=== PATIENT | male | born 1940 | race Caucasian/White ===

== ENCOUNTER 2023-05-03 08:02 | Outpatient (OUT) | payer MEDICARE, SELFPAY ==
--- NOTE | 2023-05-03 08:41 | CA_ITS ---
Patient: YONG AUSTIN Exam Date: 05/03/2023 : 1940 Gender:M Ordering : JOSESITO CONTRERAS Admission #: [id number] Family : DR Sergio Anderson . Order #: [id number] CLICK HERE TO VIEW EXAM ECHOCARDIOGRAM REPORT PROCEDURE: CA ECHO DOPPLER COMPLETE INDICATIONS: Acute on chronic systolic heart failure, pacemaker, hypertension COMPARISON: None. DESCRIPTION: COMPLETE ECHOCARDIOGRAM Real-time transthoracic echocardiography with 2D, M-mode, spectral and color flow Doppler performed. QUALITY: Technical quality was good. LEFT VENTRICLE: Normal chamber size. Severe concentric left ventricular hypertrophy. Abnormal septal motion likely related to pacing and/or bundle branch block. Systolic function appears at the lower limits of normal. LV EF: Low normal left ventricular ejection fraction, (50%). DIASTOLIC: Grade I diastolic dysfunction. ATRIAL SEPTUM: LEFT ATRIUM: Moderate dilatation. RIGHT ATRIUM: Normal chamber size. RIGHT VENTRICLE: Normal chamber size. Normal systolic function. Pacer wire present. TRICUSPID VALVE: Normal mobility and thickness. No stenosis with mild regurgitation. No evidence of pulmonary hypertension. RVSP 26 mmHg MITRAL VALVE: Normal mobility and thickness. No evidence of mitral valve stenosis. There is no mitral annular calcification. Mild mitral regurgitation. AORTIC VALVE: Normal trileaflet appearance. No visible sclerosis. Normal leaflet mobility. No evidence of aortic valve stenosis. Trivial aortic regurgitation. AORTIC ROOT: Normal diameter and appearance. PULMONIC VALVE: Normal thickness and mobility. No stenosis. Trivial regurgitation. PERICARDIUM: No evidence of pericardial effusion. IVC: Collapses with inspirations. PLEURA: CONCLUSION: 1. Severe concentric left ventricular hypertrophy. Low normal left ventricular systolic function. LVEF is 50%. 2. Mild diastolic dysfunction. 3. Normal right ventricular size and systolic function. 4. Mild tricuspid and mitral regurgitation. 5. Normal right-sided pressures. Adult Echocardiography Procedure Report Left Ventricle LVEDD (3.7 - 5.6 cm): 5.27 cm LVESD (2.2 - 4.0 cm): 4.03 cm LVIVS thickness (0.6 - 1.2 cm): 1.88 cm LVPW thickness (0.5 - 1.0 cm): 1.60 cm e': 0.05 m/s E - e': 9.95 LVOT Max Gradient: 2.83 mm[Hg] LVOT Area (cm2): 0.84 m/s Peak Velocity (LVOT): 0.84 m/s Mean Velocity (LVOT): 0.59 m/s LVOT Diameter 2.41 cm Left Atrium LA Volume Index (2D A2C): 60.19 ml/m2 Left Atrium Systolic Dimension: 4.82 cm Mitral Valve MV E to A Ratio: 0.72 Mitral Valve A-Wave Peak Velocity: 0.72 m/s Mitral Valve E-Wave Peak Velocity: 0.52 m/s Right Ventricle Aorta AO Root Diam: 3.69 cm Ascending Ao Diam: 2.79 cm Aortic Valve AoV Area (Peak Ken): 2.80 cm2, 2.80 cm2 AoV Area (VTI): 2.74 cm2, 2.74 cm2 Peak Velocity(Antegrade Flow): 1.37 m/s Peak Gradient(Antegrade Flow): 7.49 mm[Hg] Mean Velocity(Antegrade Flow): 0.95 m/s Mean Gradient(Antegrade Flow): 4.20 mm[Hg] Velocity Time Integral: 29.04 cm Tricuspid Valve Peak Velocity (Regurgitant Flow): 2.37 m/s Pulmonic Valve Peak Velocity: 1.34 m/s Peak Gradient: 7.12 mm[Hg], 7.24 mm[Hg] Right Atrium Dictated by: Keven Castaneda M.D. on 05/08/2023 at 16:56 Approved by: Keven Castaneda M.D. on 05/08/2023 at 17:24
== END 2023-05-03 08:03 | disposition home or self-care (01) ==
LOC: CARD 08:07
PROVIDERS: PCP Family Medicine; Visit Provider Nurse Practitioner
DX: I50.23 Acute on chronic systolic (congestive) heart failure (principal); I08.1 Rheumatic disorders of both mitral and tricuspid valves
CPT/HCPCS: 93306

== ENCOUNTER 2023-07-16 08:46 | Outpatient (OUT) | payer MEDICARE, SELFPAY ==
[2023-07-16 13:26] LABS: Thyroid Stimulating Hormone 1.953 uIU/mL (0.358-3.740)
== END 2023-07-16 08:47 | disposition home or self-care (01) ==
LOC: LAB 08:50
PROVIDERS: PCP Family Medicine; Visit Provider Family Medicine
DX: E03.9 Hypothyroidism, unspecified (principal)
CPT/HCPCS: 36415; 84436; 84443; 84481

== ENCOUNTER 2023-08-15 13:40 | Outpatient (OUT) | payer MEDICARE, SELFPAY ==
[2023-08-15 13:56] LABS: Basophils Absolute Auto 0.1 10^3/uL (0.0-0.1); Basophils Percent Auto 0.7 % (0.2-2.0); Eosinophils Absolute Auto 0.3 10^3/uL (0.0-0.7); Eosinophils Percent Auto 3.2 % (0.9-7.0); Hematocrit 41.8 % (42.0-54.0); Hemoglobin 14.4 g/dL (14.0-18.0); Immature Granulocytes Abs Auto 0.04 10^3/uL (0.00-0.03); Immature Granulocytes Pct Auto 0.5 % (0.0-0.5); Lymphocytes Absolute Auto 0.7 10^3/uL (1.2-3.8); Lymphocytes Percent Auto 7.8 % (20.5-60.0); Mean Corpuscular HGB Conc 34.4 g/dL (29.9-35.2); Mean Corpuscular Hemoglobin 29.3 pg (25.9-34.0); Mean Platelet Volume 8.9 fL (9.5-13.5); Monocytes Absolute Auto 0.6 10^3/uL (0.3-0.8); Monocytes Percent Auto 7.1 % (1.7-12.0); Neutrophils Absolute Auto 6.9 10^3/uL (1.4-6.5); Neutrophils Percent Auto 80.7 % (43.0-75.0); Platelet Count 247 10^3/uL (150-450); Red Blood Count 4.92 10^6/uL (4.70-6.10); Red Cell Distribution Width 13.7 % (11.0-15.0); White Blood Count 8.5 10^3/uL (4.0-11.0)
[2023-08-15 14:14] LABS: Alanine Aminotransferase 26 U/L (16-63); Albumin Globulin Ratio 1.2; Albumin Level 3.4 g/dL (3.4-5.0); Alkaline Phosphatase 78 U/L (46-116); Anion Gap 13.1; Aspartate Amino Transferase 23 U/L (15-37); BUN Creatinine Ratio 9.1; Bilirubin Total 0.6 mg/dL (0.2-1.0); Calcium 8.6 mg/dL (8.5-10.1); Chloride 102 mmol/L (98-107); Estimated GFR (African America 42 (>=60); Estimated GFR (Non-African Ame 35 (>=60); Globulin 2.9 g/dL; Glucose 108 mg/dL (74-106); INR 1.01; Potassium 4.1 mmol/L (3.5-5.1); Prothrombin Time 10.7 sec (9.0-11.6); Sodium 137 mmol/L (136-145); Total Protein 6.3 g/dL (6.4-8.2)
== END 2023-08-15 13:41 | disposition home or self-care (01) ==
PROVIDERS: PCP Family Medicine; Visit Provider Family Medicine
DX: K29.70 Gastritis, unspecified, without bleeding (principal)
CPT/HCPCS: 36415; 80053; 85025; 85610; 85730

== ENCOUNTER 2023-11-05 10:32 | Observation (INO) | payer MEDICARE, SELFPAY ==
[2023-11-05] VITALS (22 sets, daily range): BP systolic 105–129; BP diastolic 41–53; PULSE 62–71; RESP 14–27; TEMP 36.5–36.8; O2SAT 91–97; BMI 24.9; BMI 26.6
--- OUTSIDE RECORDS SUMMARY | 2023-11-05 10:46 | XMS_ITS | CCD ---
Author Name Unknown Address [id number] [place] [address] Organization [facility] Care Team Providers Care [facility] Associate Name Role Phone PHYSICIAN, DEFAULT Unavailable Unavailable PHYSICIAN, DEFAULT Unavailable Unavailable PHYSICIAN, DEFAULT Unavailable Unavailable PHYSICIAN, DEFAULT Unavailable Unavailable Yoan Sneed MD Primary Care Provider [phone] Jian Rodriguez MD Unavailable Unavailable Mike BARBER, Lauren Barros Unavailable Soren Perea MD Unavailable Corazon Maxwell PA-C Unavailable Augusto Sauceda Unavailable Shawn Nelson Unavailable Yoan Sneed MD Primary Care Provider [phone] Jian Rodriguez MD Unavailable Unavailable Soren Perea MD Unavailable [phone] Casey Castaneda MD Unavailable Yoan Sneed Primary Care Physician [phone] Yoan Sneed MD Primary Care Provider [phone] Caesar Prado MD Unavailable Saray BARBER, Margot Unavailable [phone] Wayne Chavez APRN.CNP Unavailable PAY ., DR SEVILLA Consulting Unavailable PAY ., DR SEVILLA Admitting Unavailable NAREN ., DR MILTON Primary Care Unavailable PAY ., DR SEVILLA Attending Unavailable MIKE MARTÍNEZ Consulting Unavailable NAREN ., DR MILTON Primary Care Unavailable BYRON KIRK Attending Unavailable BYRON KIRK Consulting Unavailable BYRON KIRK Admitting Unavailable AUGUSTINA JAMES Consulting Unavailable HOY ., DR MILTON Primary Care Unavailable PAY ., DR SEVILLA Consulting Unavailable PAY ., DR SEVILLA Admitting Unavailable PAY ., DR SEVILLA Attending Unavailable HOY ., DR MILTON Primary Care Unavailable HOY ., DR MILTON Admitting Unavailable HOY ., DR MILTON Attending Unavailable HOY ., DR MILTON Consulting Unavailable HOY ., DR MILTON Admitting Unavailable HOY ., DR MILTON Attending Unavailable HOY ., DR MILTON Consulting Unavailable HOY ., DR MILTON Primary Care Unavailable Jennifer FOUNTAIN, Jian Lee Unavailable Jian RODRIGUEZ Attending Unavailable Jian RODRIGUEZ Attending Unavailable Saray BARBER, Margot Unavailable JIMBO BAUTISTA Attending Unavailable DAGOBERTO JAMES Attending Unavailable ELMO, NASHEED Referring Unavailable AHMED, MIGUEL Referring Unavailable AHMED, MIGUEL Referring Unavailable AHMED, MIGUEL Referring Unavailable MERZA, NOORALDIN Referring Unavailable JACKZA, NOORALDIN Referring Unavailable JOSESITO VILLANUEVA Referring Unavailable ELMO, ALFONZOEED Attending Unavailable PATRICIA WHITING Referring Unavailable AHMED, MIGUEL Attending Unavailable AHMED, MIGUEL Admitting Unavailable JONATHAN LEIGH Attending Unavailable CASEY CASTANEDA Attending Unavailable JOSESITO VILLANUEVA Attending Unavailable JIMBO BAUTISTA Referring Unavailable HOY, YOAN M Primary Care Unavailable ABHYANKAR, CAESAR Referring Unavailable HOY, YOAN M Primary Care Unavailable RITA BHATT Attending Unavailable HOY, YOAN M Primary Care Unavailable ABHYANKAR, CAESAR Attending Unavailable HOY, YOAN M Primary Care Unavailable ABHYANKAR, CAESAR Referring Unavailable HOY, YOAN M Primary Care Unavailable HOY, YOAN M Primary Care Unavailable WAYNE CHAVEZ Referring Unavailable WAYNE CHAVEZ Attending Unavailable HOY, YOAN M Primary Care Unavailable HOY, YOAN M Primary Care Unavailable ABHYANKAR, CAESAR Attending Unavailable HOY, YOAN M Primary Care Unavailable HOY, YOAN M Primary Care Unavailable ABHYANKAR, CAESAR Attending Unavailable HOY, YOAN M Primary Care Unavailable ABHYANKAR, CAESAR Attending Unavailable HOY, YOAN M Primary Care Unavailable HOY, YOAN M Primary Care Unavailable WAYNE CHAVEZ Attending Unavailable HOY, YOAN M Primary Care Unavailable WAYNE CHAVEZ Referring Unavailable HOY, YOAN M Primary Care Unavailable ABHYANKAR, CAESAR Referring Unavailable HOY, YOAN M Primary Care Unavailable HOY, YOAN M Primary Care Unavailable HOY, YOAN M Primary Care Unavailable ABHYANKAR, CAESAR Referring Unavailable HOY, YOAN M Primary Care Unavailable HOY, YOAN M Primary Care Unavailable WAYNE CHAVEZ Attending Unavailable HOY, YOAN M Primary Care Unavailable ABHYANKAR, CAESAR Attending Unavailable ABHYANKAR, CAESAR Referring Unavailable HOY, YOAN M Primary Care Unavailable ABHYANKAR, CAESAR Attending Unavailable HOY, YOAN M Primary Care Unavailable HOY, YOAN M Primary Care Unavailable HOY, YOAN M Primary Care Unavailable ABHYANKAR, CAESAR Attending Unavailable ABHYANKAR, CAESAR Referring Unavailable HOY, YOAN M Primary Care Unavailable ABHYANKAR, CAESAR Referring Unavailable HOY, YOAN M Primary Care Unavailable HOY, YOAN M Primary Care Unavailable HOY, YOAN M Primary Care Unavailable ABHYANKAR, CAESAR Referring Unavailable HOY, YOAN M Primary Care Unavailable HOY, YOAN M Primary Care Unavailable HOY, YOAN M Primary Care Unavailable WAYNE CHAVEZ Attending Unavailable HOY, YOAN M Primary Care Unavailable ABHYANKAR, CAESAR Referring Unavailable HOY, YOAN M Primary Care Unavailable RITA BHATT Attending Unavailable RITA BHATT Admitting Unavailable HOY, YOAN M Primary Care Unavailable ABHYANKAR, CAESAR Attending Unavailable HOY, YOAN M Primary Care Unavailable HOY, YOAN M Primary Care Unavailable WAYNE CHAVEZ Attending Unavailable HOY, YOAN M Primary Care Unavailable ABHYANKAR, CAESAR Referring Unavailable HOY, YOAN M Primary Care Unavailable RITA BHATT Attending Unavailable HOY, YOAN M Primary Care Unavailable HOY, YOAN M Primary Care Unavailable ABHYANKAR, CAESAR Attending Unavailable HOY, YOAN M Primary Care Unavailable ABHYANKAR, CAESAR Referring Unavailable HOY, YOAN M Primary Care Unavailable ABHYANKAR, CAESAR Referring Unavailable HOY, YOAN M Primary Care Unavailable HOY, YOAN M Primary Care Unavailable ABHYANKAR, CAESAR Attending Unavailable HOY, YOAN M Primary Care Unavailable ABHYANKAR, CAESAR Referring Unavailable HOY, YOAN M Primary Care Unavailable RITA BHATT Attending Unavailable HOY, YOAN M Primary Care Unavailable ABHYANKAR, CAESAR Referring Unavailable HOY, YOAN M Primary Care Unavailable ABHYANKAR, CAESAR Referring Unavailable HOY, YOAN M Primary Care Unavailable ABHYANKAR, CAESAR Referring Unavailable HOY, YOAN M Primary Care Unavailable HOY, OYAN M Primary Care Unavailable RITA BHATT Attending Unavailable HOY, YOAN M Primary Care Unavailable ABHYANKAR, CAESAR Attending Unavailable ABHYANKAR, CAESAR Referring Unavailable JAIMEE RHODES Attending Unavailable HOY, YOAN M Primary Care Unavailable JAIMEE RHODES Attending Unavailable JAIMEE RHODES Referring Unavailable HOY, YOAN M Primary Care Unavailable Allergies Allergy Classification Reported Allergen(s) Allergy Type Date of Onset Reaction(s) Facility (20 sources) Adhesive Tape; Translations: [ADHESIVE TAPE (ROSINS)] Propensity to adverse reactions to substance 8 Other: See Comments [facility] (2 sources) Adhesive Tape; Translations: [Tape] Allergy to substance Blister of skin without infection (disorder) [facility] (1 source) Desonide Drug Allergy [facility] (1 source) No Known Medication Allergies; Translations: [No Known Medication Allergies] Propensity to adverse reactions (disorder) [facility] (2 sources) Adhesive agent; Translations: [ADHESIVE] Propensity to adverse reactions to drug (disorder) 8 [facility] (1 source) OTHER; Translations: [OTHER] Propensity to adverse reactions (disorder) 8 [facility] NEGATED: Highlighted row has been ruled out! (1 source) Drug allergy [facility] Medications Current Medications Medication Drug Class(es) Dates Sig (Normalized) Sig (Original) balsalazide disodium 750 mg oral capsule (20 sources) Aminosalicylate Start: 07-13-2019 take 750 mg by mouth three times daily balsalazide 750 mg, Oral, TID, Refills(s) 0 Start Date: 07/13/19 Status: Ordered Start: 06-25-2017 take 2 capsules by m outh once daily balsalazide (COLAZAL) 750 mg capsule Take 1,500 mg by mouth once daily. 0 06/25/2017 Active Start: 06-25-2017 take 2 capsules by m outh three times daily balsalazide (COLAZAL) 750 mg capsule Take 1,500 mg by mouth three times daily. 0 06/25/2017 Active take 3 capsules by m outh every eight hours Balsalazide Disodium 750 MG 3 capsules Orally THREE TIMES A DAY for 90 days Active Comment on above: Take 1,500 mg by jenn th three times daily. Take 1,500 mg by jenn th once daily. carvedilol 3.125 mg oral tablet (8 sources) alpha-Adrenergic Constantin, beta-Adrenergic Constantin Start: 02-28-2022 End: 05-03-2022 carvedilol (COREG) 3.125 mg tablet Carvedilol Activ e Centrum (4 sources) Centrum Active Centrum Silver (1 source) Start: 08-16-2021 Centrum Silver Oral, Daily, Refill(s) 0 Start Date: 08/16/21 Status: Ordered Cranberry preparation (20 sources) Non-Standardized Food Allergenic Extract, Non-Standardized Plant Allergenic Extract Start: 11-29-2021 Cranberry Start Date: 11/29/21 Status: Ordered End: 11-12-2022 take 1 capsule by mouth twice daily Cranberry 500 mg cap Take 500 mg by mouth twice daily. 0 11/12/2022 Discontinued Cranberry Active take 1 capsule by mo uth twice daily Cranberry 500 mg cap Take 500 mg by mouth twice daily. 0 Active Comment on above: Take 500 mg by mouth twice daily. Fish Oils (3 sources) Fish Oil Active furosemide 20 mg oral tablet (20 sources) Loop Diuretic Start: 08-16-2021 take 1 tablet by mouth once daily furosemide 20 mg Tab 20 mg = 1 tab(s), Oral, Daily Start Date: 08/16/21 Status: Ordered Furosemide Activ e Comment on above: Take 20 mg by mouth once daily. glucosamine hydrochloride 1500 mg oral tablet (5 sources) Start: 07-13-2019 take 1500 mg by mouth once daily glucosamine 1,500 mg, Oral, Daily, Refills(s) 0 Start Date: 07/13/19 Status: Ordered Glucosamine Acti ve Iron (1 source) take 1 tablet by mouth three times weekly Iron (Ferrous Sulfate) 325 (65 Fe) MG 1 tablet Orally Three times a Week Active 24 hr metoprolol succinate 25 mg extended release oral tablet (20 sources) beta-Adrenergic Constantin Start: 08-16-2021 End: 05-03-2022 take 1 mg by mouth once daily metoprolol 25 mg ER Tab mg tab(s), Oral, Daily Start Date: 08/16/21 Status: Ordered End: 12-31-2022 take 1 tablet by mouth twice daily metoprolol tartrate, short acting, (LOPRESSOR) 25 mg tablet Take 25 mg by mouth twice daily. 0 12/31/2022 Discontinued Comment on above: Take 25 mg by mouth once daily. Take 25 mg by mouth twice daily. omeprazole 20 mg delayed release oral capsule (20 sources) Proton Pump Inhibitor Start: 07-13-2019 take 20 mg by mouth once daily omeprazole 20 mg, Oral, Daily, Refills(s) 0 Start Date: 07/13/19 Status: Ordered Start: 06-27-2018 End: 03-07-2024 take 1 capsule by mouth twice daily omeprazole (PRILOSEC) 20 mg capsule Take 1 capsule by mouth twice daily. 60 capsule 0 11/21/2021 03/07/2024 Active Comment on above: Take 1 capsule by [facility] twice daily. Take 20 mg by mouth twice daily. ondansetron 8 mg oral tablet (12 sources) Serotonin-3 Receptor Antagonist Start: 2 End: 2 take 1 tablet by mouth every eight hours as needed ondansetron (ZOFRAN) 8 mg tablet Take 1 tablet by mouth every 8 hours as needed for nausea/vomiting. 90 tablet 2 11/21/2021 05/03/2022 Discontinued Comment on above: Take 1 tablet by [facility] every 8 hours as needed for nausea/vomiting. predniSONE 10 mg oral tablet (7 sources) Start: 3 End: 3 take 4 tablets by mouth once daily predniSONE (DELTASONE) 10 mg tablet Take 4 tablets by mouth once daily. 120 tablet 0 08/29/2023 09/28/2023 Active Start: 01-23-2023 End: 04-04-2023 take 1 tablet by mouth once daily predniSONE (DELTASONE) 50 mg Take 1 tablet by mouth once daily. 5 tablet 0 01/23/2023 04/04/2023 Discontinued (Discontinued by another Health Care Provider) Comment on above: Take 1 tablet by jenn once daily. Take 4 tablets by [facility] once daily. prochlorperazine 10 mg oral tablet (12 sources) Phenothiazine Start: End: take 1 tablet by mouth every six hours as needed prochlorperazine (COMPAZINE) 10 mg tablet Take 1 tablet by mouth every 6 hours as needed. 100 tablet 2 11/21/2021 05/03/2022 Discontinued Comment on above: Take 1 tablet by jenn every 6 hours as needed. Completed/Discontinued Medications Medication Drug Class(es) Dates Sig (Normalized) Sig (Original) acetaminophen 325 mg oral tablet (16 sources) Start: 05-23-2022 take 2 tablets by mouth every four hours as needed acetaminophen (TYLENOL) 325 mg tablet Take 2 tablets by mouth every 4 hours as needed for pain. 30 tablet 0 05/23/2022 Active Start: 09-30-2019 End: 05-03-2022 take 2 tablets by mouth every four hours as needed acetaminophen (TYLENOL) 325 mg tablet Take 2 tablets by mouth every 4 hours as needed for Pain. 30 tablet 0 09/30/2019 05/03/2022 Discontinued Comment on above: Take 2 tablets by [facility] every 4 hours as needed for Pain. amLODIPine 10 mg oral tablet (20 sources) Dihydropyridine Calcium Channel Constantin Start: 05-05-20 End: 05-03-20 take 1 tablet by mouth once daily at bedtime amLODIPine (NORVASC) 10 mg tablet Take 10 mg by mouth daily at bedtime. 0 05/05/2018 05/03/2022 Discontinued amLODIPine Besyl ate Active Comment on above: Take 10 mg by mouth daily at bedtime. Take 10 mg by mouth once daily. aspirin 81 mg delayed release oral tablet (20 sources) Platelet Aggregation Inhibitor, Nonsteroidal Anti-inflammatory Drug take 1 tablet by mouth once daily aspirin, enteric coated (ASPIRIN, ENTERIC COATED) 81 mg EC tablet Take 81 mg by mouth once daily. 0 Active Vj Aspirin Ac tive Comment on above: Take 81 mg by mouth once daily. atorvastatin 10 mg oral tablet (20 sources) HMG-CoA Reductase Inhibitor Start: take 1 tablet by mouth once daily atorvastatin (LIPITOR) 10 mg tablet Take 10 mg by mouth once daily. 0 06/13/2018 Active Lipitor Active Comment on above: Take 10 mg by mouth once daily. chondroitin sulfates 400 mg / glucosamine hydrochloride 500 mg oral tablet (20 sources) take 1 tablet by mouth once daily Glucosamine-Chond roitin 500-400 mg tablet Take 1 tablet by mouth once daily. 0 Active Comment on above: Take 1 tablet by [facility] once daily. ciprofloxacin 250 mg oral tablet (1 source) Quinolone Antimicrobial Start: 3 take 1 tablet by mouth once daily Cipro 250 mg Tab 250 mg = 1 tab(s), Oral, Daily, Take 1 tablet the day before the procedure and 1 tablet after the procedure, # 2 tab(s), Refills(s) 0, Pharmacy: [facility] [id number], 167, cm, 12/05/22 9:25:00 EST, Height/Length Dosing, 84, kg, 12/05/22 9:25:00 ES... Start Date: 12/05/22 Status: Ordered docusate sodium 100 mg oral capsule (5 sources) Start: 3 End: 3 take 1 capsule by mouth twice daily docusate sodium (COLACE) 100 mg capsule Take 1 capsule by mouth twice daily for 14 days. Stop taking if you develop diarrhea or loose stools 28 capsule 0 11/12/2022 11/26/2022 Start: 05-23-2022 take 1 capsule by [facility] twice daily docusate sodium (COLACE) 100 mg capsule Take 1 capsule by mouth twice daily. 10 capsule 0 05/23/2022 Active Comment on above: Take 1 capsule by [facility] twice daily. Take 1 capsule by [facility] twice daily for 14 days. Stop taking if you develop diarrhea or loose stools empagliflozin 10 mg oral tablet (20 sources) Sodium-Glucose Cotransporter 2 Inhibitor take 1 tablet by mouth once daily at breakfast empagliflozin (JARDIANCE) 10 mg tablet Take 10 mg by mouth daily with breakfast. 0 Active Comment on above: Take 10 mg by mouth daily with breakfast. enalapril maleate 5 mg oral tablet (8 sources) Angiotensin Converting Enzyme Inhibitor End: 023 take 1 tablet by mouth once daily enalapril (VASOTEC) 5 mg tablet Take 5 mg by mouth once daily. 0 04/04/2023 Discontinued (Changing Therapy/Dosage Form) Comment on above: Take 5 mg by mouth o nce daily. enteric contrast (will be provided with radiology test) (10 sources) Start: End: enteric contrast (will be provided with radiology test) For CT CHESTABD/PEL W IVCON Routine order Administer, As Directed One Time Only, via Oral, Rectal, both Oral and Rectal, Enteric Tube, Stoma or Indwelling Catheter, Enteric Contrast as designated per enteric contrast guidelines 1 Each 0 07/18/2023 07/19/2023 Start: 05-16-2023 End: 06-28-2023 enteric contrast (will be pr ovided with radiology test) For CT CHESTABD/PEL W IVCON Routine order Administer, As Directed One Time Only, via Oral, Rectal, both Oral and Rectal, Enteric Tube, Stoma or Indwelling Catheter, Enteric Contrast as designated per enteric contrast guidelines 1 Each 0 05/16/2023 06/28/2023 Discontinued (Discontinued by Patient) Start: 05-16-[address] (will be provided with radiology test) For CT CHESTABD/PEL W IVCON Routine order Administer, As Directed One Time Only, via Oral, Rectal, both Oral and Rectal, Enteric Tube, Stoma or Indwelling Catheter, Enteric Contrast as designated per enteric contrast guidelines 1 Each 0 05/16/2023 Active Start: 08-06-2018 End: 11-01-2021 enteric contrast (will be pr ovided with radiology test) For CT CHESTABD/PEL W IVCON Routine order Administer, As Directed One Time Only, via Oral, Rectal, both Oral and Rectal, Enteric Tube, Stoma or Indwelling Catheter, Enteric Contrast as designated per enteric contrast guidelines 1 Each 0 08/06/2018 11/01/2021 Discontinued (Adjust Sig - Block E-Cancel) Comment on above: For CT CHESTABD/PEL W IVCON Routine order Administer, As Directed One Time Only, via Oral, Rectal, both Oral and Rectal, Enteric Tube, Stoma or Indwelling Catheter, Enteric Contrast as designated per enteric contrast guidelines ferrous sulfate 325 mg oral tablet (13 sources) ferrous sulfate 325 mg (65 mg iron) tablet Take 325 mg by mouth. 0 Active Comment on above: Take 325 mg by mouth . Fish Oil-[place]-3 Fatty Acids (FISH OIL) 300-1,000 mg cap (13 sources) take 1 capsule by mouth once daily Fish Oil-[place]-3 Fatty Acids (FISH OIL) 300-1,000 mg cap Take 2 g by mouth once daily. 0 Active Comment on above: Take 2 g by mouth on ce daily. folic acid/multivit-min/lute in (CENTRUM SILVER ORAL) (20 sources) take 1 tablet by mouth once daily folic acid/multivit-min/l utein (CENTRUM SILVER ORAL) Take 1 tablet by mouth once daily. 0 Active Comment on above: Take 1 tablet by jenn th once daily. hydrALAZINE hydrochloride 50 mg oral tablet (20 sources) Arteriolar Vasodilator Start: 02-22-20 take 1 tablet by mouth three times daily hydrALAZINE (APRESOLINE) 50 mg tablet Take 50 mg by mouth three times daily. 0 02/21/2022 Active Start: 08-16-2021 take 1 tablet by jenn th four times daily hydrALAZINE 10 mg Tab 10 mg = 1 tab(s), Oral, QID Start Date: 08/16/21 Status: Ordered hydrALAZINE HCl Active End: 03-05-2022 take 2 tablets by mouth three times daily hydrALAZINE (APRESOLINE) 10 mg tablet Take 20 mg by mouth three times daily. 0 03/05/2022 Discontinued Comment on above: Take 20 mg by mouth three times daily. Take 50 mg by mouth three times daily. hydroCHLOROthiazide 25 mg / triamterene 37.5 mg oral tablet (1 source) Potassium-sparing Diuretic, Thiazide Diuretic Start: 018 End: 022 take 1 tablet by mouth once daily triamterene-hydroch lorothiazide (MAXZIDE-25) 37.5-25 mg per tablet Take 1 tablet by mouth once daily. 0 05/14/2018 11/01/2021 Discontinued Comment on above: Take 1 tablet by jenn th once daily. 24 hr isosorbide mononitrate 30 mg extended release oral tablet (20 sources) Nitrate Vasodilator take 1 tablet by mouth once daily, then take 1 tablet by mouth every twenty-four hours isosorbide mononitrate ER (IMDUR) 30 mg 24 hr tablet Take 30 mg by mouth once daily. 0 Active Comment on above: Take 30 mg by mouth once daily. isosorbide dinitrate 20 mg oral tablet (20 sources) Nitrate Vasodilator Start: 023 isosorbide dinitrate (ISORDIL) 20 mg tablet Start: 08-16-2021 take 1 tablet by jenn th twice daily isosorbide dinitrate 10 mg Tab 10 mg = 1 tab(s), Oral, BID Start Date: 08/16/21 Status: Ordered End: 12-31-2022 isosorbide dinitrate (ISORDI L) 10 mg tablet Take 20 mg by mouth three times daily. 0 12/31/2022 Discontinued Isosorbide Dinit rate Active Comment on above: Take 20 mg by mouth three times daily. iv contrast (will be provided with radiology test) (16 sources) Start: 07-18-2023 End: 07-19-2023 iv contrast (will be provided with radiology test) CT Chest ABD/PEL-Inject, intravenously, once for 1 dose.No IV access, insert saline lock prior to the beginning of sedation, infusion, injection of imaging exam. Discontinue saline lock post exam. If Pt. has a central line or IVAD, may access for administration according to line specific nursing protocol. Once exam is complete flush line and de-access according to line specific nursing protocol in the CT contrast administration guidelines link. 1 Each 0 07/18/2023 07/19/2023 Start: 05-16-2023 iv contrast (w ill be provided with radiology test) CT Chest ABD/PEL-Inject, intravenously, once for 1 dose.No IV access, insert saline lock prior to the beginning of sedation, infusion, injection of imaging exam. Discontinue saline lock post exam. If Pt. has a central line or IVAD, may access for administration according to line specific nursing protocol. Once exam is complete flush line and de-access according to line specific nursing protocol in the CT contrast administration guidelines link. 1 Each 0 05/16/2023 Active Start: 08-06-2018 End: 11-01-2021 iv contrast (will be provide d with radiology test) CT Chest ABD/PEL-Inject, intravenously, once for 1 dose.No IV access, insert saline lock prior to the beginning of sedation, infusion, injection of imaging exam. Discontinue saline lock post exam. If Pt. has a central line or IVAD, may access for administration according to line specific nursing protocol. Once exam is complete flush line and de-access according to line specific nursing protocol in the CT contrast administration guidelines link. 1 Each 0 08/06/2018 11/01/2021 Discontinued Comment on above: CT Chest ABD/PEL-Inj ect, intravenously, once for 1 dose.No IV access, insert saline lock prior to the beginning of sedation, infusion, injection of imaging exam. Discontinue saline lock post exam. If Pt. has a central line or IVAD, may access for administration according to line specific nursing protocol. Once exam is complete flush line and de-access according to line specific nursing protocol in the CT contrast administration guidelines link. levothyroxine sodium 0.025 mg oral tablet (7 sources) l-Thyroxine Start: 023 take 1 tablet by mouth once daily in the morning levothyroxine (SYNTHROID) 25 mcg tablet 1 tablet in the morning on an empty stomach Orally Once a day for 30 days 0 06/12/2023 Active Comment on above: 1 tablet in the morn ing on an empty stomach Orally Once a day for 30 days losartan potassium 50 mg oral tablet (20 sources) Angiotensin 2 Receptor Constantin Start: 019 losartan (COZAAR) 50 mg tablet Take 50 mg by mouth. 0 07/13/2019 Active Start: 05-15-2018 End: 11-12-2022 take 1 tablet by mouth twice daily losartan (COZAAR) 50 mg tablet Take 50 mg by mouth twice daily. 0 05/15/2018 11/12/2022 Discontinued Losartan Potassi um Active Comment on above: Take 50 mg by mouth twice daily. Take 50 mg by mouth. Methylcellulose (1 source) End: 022 methylcellulose (CITRUCEL ORAL) Take 1 Tablespoonful by mouth once daily. 0 11/21/2021 Discontinued Comment on above: Take 1 Tablespoonful by mouth once daily. omega-3 fatty acids/fish oil (FISH OIL-OMEGA-3 FATTY ACIDS) 300-1,000 mg cap (4 sources) End: 023 take 1 capsule by mouth once daily omega-3 fatty acids/fish oil (FISH OIL-OMEGA-3 FATTY ACIDS) 300-1,000 mg cap Take 2 g by mouth once daily. 0 11/12/2022 Discontinued take 1 capsule by mouth once litzy ly omega-3 fatty acids/fish oil (FISH OIL-OMEGA-3 FATTY ACIDS) 300-1,000 mg cap Take 2 g by mouth once daily. 0 Active Comment on above: Take 2 g by mouth on ce daily. oxybutynin chloride 5 mg oral tablet (3 sources) Cholinergic Muscarinic Antagonist Start: 05-23-20 22 take 1 tablet by mouth every eight hours as needed oxybutynin (DITROPAN) 5 mg tablet Take 1 tablet by mouth three times daily as needed (bladder spasms). 12 tablet 0 05/23/2022 Active Comment on above: Take 1 tablet by jenn th three times daily as needed (bladder spasms). oxyCODONE hydrochloride 5 mg oral tablet (7 sources) Opioid Agonist Start: 11-12-19 23 take 1 tablet by mouth every eight hours as needed for pain oxyCODONE IR (ROXICODONE) 5 mg immediate release tablet Indications: Postoperative pain Take 1 tablet by mouth every 8 hours as needed for pain. 8 tablet 0 11/12/2022 Active Start: 05-23-2022 take 1 tablet by jenn th every eight hours as needed for pain oxyCODONE IR (ROXICODONE) 5 mg immediate release tablet Indications: Urothelial carcinoma (HCC) Take 1 tablet by mouth every 8 hours as needed for pain. 4 tablet 0 05/23/2022 Active Comment on above: Take 1 tablet by jenn th every 8 hours as needed for pain. pantoprazole 40 mg delayed release oral tablet (2 sources) Proton Pump Inhibitor Start: 08-15-[address] (PROTONIX) 40 mg tablet 4 ml pembrolizumab 25 mg/ml injection (14 sources) Programmed Receptor-1 Blocking Antibody pembrolizumab (KEYTR UDA) 25 mg/mL injection Inject intravenously. 0 Active Keytruda Active Comment on above: Inject intravenously . potassium chloride 10 meq extended release oral capsule (20 sources) Start: 02-28-2022 potassium chloride SR (MICRO-K) 10 mEq CR capsule take 1 tablet by mouth twice litzy ly potassium chloride (K-TAB) 10 mEq tablet Take 10 mEq by mouth twice daily. 0 Active Potassium Chlori de Active Comment on above: Take 10 mEq by mouth twice daily. tamsulosin hydrochloride 0.4 mg oral capsule (20 sources) alpha-Adrenergic Constantin Start: 05-23-2022 End: 05-31-2023 take 1 capsule by mouth once daily tamsulosin (FLOMAX) 0.4 mg Take 1 capsule by mouth once daily. 30 capsule 5 05/31/2023 Active Start: 09-30-2019 End: 01-30-2022 tamsulosin (FLOMAX) 0.4 mg T teresa 1 capsule by mouth once daily 30 minutes after the same meal 30 capsule 2 11/01/2021 Active Start: 05-04-2018 End: 11-21-2021 take 2 capsules by mouth once daily tamsulosin ER (FLOMAX) 0.4 mg cap Take 0.8 mg by mouth once daily. 0 05/04/2018 11/21/2021 Discontinued Tamsulosin HCl A ctive Comment on above: Take 1 capsule by mo uth once daily 30 minutes after the same meal Take 1 capsule by mo uth once daily. Take 0.8 mg by mouth once daily. Take 1 capsule by mo uth once daily. 30 minutes after the same meal each day. Problems Active Problems Problem Classification Problem Date Documented Da te Episodic/Chronic Acute and unspecified renal failure (1 source) Chronic renal failure 04-28-2019 Chronic Calculus of urinary tract (2 sources) History of calculus of kidney; Translations: [Personal history of urinary calculi] Onset: 3 07-13-2019 Episodic Cancer of bladder (20 sources) Malignant tumor of urinary bladder; Translations: [Malignant neoplasm of bladder, unspecified] Onset: 2 11-10-2021 Chronic Cancer of kidney and renal pelvis (20 sources) Malignant tumor of kidney; Translations: [Malignant neoplasm of unspecified kidney, except renal pelvis] Onset: 9 Resolved: 2 10-26-2021 Chronic Cancer of other urinary organs (20 sources) Malignant tumor of ureter; 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] Onset: 8 Chronic Cancer; other and unspecified primary (1 source) History of bladder neoplasm 07-13-2019 Episodic Cardiac dysrhythmias (2 sources) Typical atrial flutter; Translations: [Typical atrial flutter] Onset: 3 Chronic Chronic kidney disease (20 sources) Chronic kidney disease stage 3; Translations: [Stage 3 chronic kidney disease] Onset: 9 08-11-2019 Chronic Conduction disorders (10 sources) Presence of cardiac pacemaker; Translations: [Encounter for adjustment and management of automatic implantable cardiac defibrillator] Onset: 3 Chronic Congestive heart failure; nonhypertensive (5 sources) Acute systolic (congestive) heart failure; Translations: [Acute on chronic systolic (congestive) heart failure] Onset: 2 Chronic Deficiency and other anemia (1 source) Anemia in chronic kidney disease; Translations: [Anemia of renal disease] Onset: 3 Chronic Diseases of mouth; excluding dental (1 source) Xerostomia; Translations: [Dry mouth, unspecified] 04-25-2023 Episodic Disorders of lipid metabolism (2 sources) Pure hypercholesterolemia, unspecified; Translations: [Hyperlipidemia, unspecified] Onset: 2 Chronic Esophageal disorders (20 sources) Gastroesophageal reflux disease without esophagitis; Translations: [Gastro-esophageal reflux disease without esophagitis] Onset: 9 10-26-2021 Chronic Essential hypertension (20 sources) Hypertensive disorder; Translations: [Essential (primary) hypertension] Onset: 7 10-26-2021 Chronic Heart valve disorders (1 source) Nonrheumatic mitral (valve) insufficiency; Translations: [NONRHEUMATIC MITRAL INSUFFICIENCY] Onset: 3 Chronic Hyperplasia of prostate (3 sources) Benign prostatic hypertrophy with outflow obstruction; Translations: [Benign prostatic hyperplasia with lower urinary tract symptoms] Onset: 3 Chronic Hypertension with complications and secondary hypertension (20 sources) Hypertensive heart failure; Translations: [Hypertensive heart disease with heart failure] Onset: 1 10-26-2021 Chronic Malaise and fatigue (3 sources) Malaise and fatigue; Translations: [Other malaise] Onset: 4 06-28-2023 Episodic Nausea and vomiting (3 sources) Nausea with vomiting, unspecified; Translations: [Nausea] Onset: 4 Episodic Nutritional deficiencies (1 source) Vitamin D deficiency, unspecified; Translations: [VITAMIN D DEFICIENCY UNSPECIFIED] Onset: 2 Chronic Osteoarthritis (1 source) Unspecified osteoarthritis, unspecified site; Translations: [UNSPECIFIED OSTEOARTHRITIS UNS SITE] Onset: 3 Chronic Other aftercare (1 source) Other exterminator (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; Translations: [OTH COPYWRITING INTERN CURRENT DRUG THERAPY] Onset: 3 Episodic Other aftercare (1 source) shelter (current) use of aspirin; Translations: [FDC CURRENT USE OF ASPIRIN] Onset: 3 Episodic Other diseases of kidney and ureters (1 source) Urinary tract obstruction; Translations: [Other obstructive and reflux uropathy] Onset: 3 Episodic Other gastrointestinal disorders (1 source) Diarrhea, unspecified Episodic Other lower respiratory disease (1 source) Shortness of breath; Translations: [SHORTNESS OF BREATH] Onset: 3 Episodic Other nervous system disorders (4 sources) Tremor, unspecified; Translations: [TREMOR UNSPECIFIED] Onset: 3 Episodic Other non-epithelial cancer of skin (1 source) Personal history of other malignant neoplasm of skin; Translations: [PERSONAL HX OTH MALIG NEOPLASM SKIN] Onset: 3 Episodic Other nutritional; endocrine; and metabolic disorders (20 sources) Obese class I; Translations: [Obesity, unspecified] Onset: 2 03-27-2022 Chronic Other screening for suspected conditions (not mental disorders or infectious disease) (3 sources) Patient encounter status; Translations: [Encounter for screening for other disorder] Onset: 2 Episodic Regional enteritis and ulcerative colitis (20 sources) Ulcerative pancolitis; 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] Onset: 9 Resolved: 2 10-26-2021 Chronic Residual codes; unclassified (1 source) Acquired absence of kidney; Translations: [ACQUIRED ABSENCE OF KIDNEY] Onset: 3 Episodic Residual codes; unclassified (1 source) Acquired absence of other genital organ(s); Translations: [ACQUIRED ABSENCE OTH GENITAL ORGANS] Onset: 3 Episodic Residual codes; unclassified (1 source) Other general symptoms and signs; Translations: [Other general symptoms] 04-25-2023 Episodic Screening and history of mental health and substance abuse codes (1 source) Personal history of nicotine dependence; Translations: [PERSONAL HISTORY OF NICOTINE DEPEND] Onset: 3 Episodic Thyroid disorders (1 source) Disorder of thyroid gland; Translations: [Disorder of thyroid, unspecified] 06-06-2023 Episodic Unclassified (1 source) Drug therapy finding 04-28-2019 Unclassified (1 source) CHRN KIDNEY DISEASE STG 3 UNSP; Translations: [CHRN KIDNEY DISEASE STG 3 UNSP] Onset: 2 Urinary tract infections (1 source) Acute cystitis; Translations: [Acute cystitis without hematuria] Episodic Past or Other Problems Problem Classification Problem Date Documented Date Episodic/Chronic Acute and unspecified renal failure (20 sources) Acute injury of kidney; Translations: [Acute kidney failure, unspecified] Onset: 11-01-2021 11-01-2021 Episodic Acute posthemorrhagic anemia (1 source) Acute posthemorrhagic anemia; Translations: [Acute blood loss anemia] Onset: 11-12-2022 Episodic Cancer of bladder (1 source) Personal history of malignant neoplasm of bladder; Translations: [PERSONAL HX MALIG NEOPLASM BLADDER] Onset: 12-10-2022 Episodic Cancer of other urinary organs (2 sources) History of malignant neoplasm of ureter; Translations: [Personal history of malignant neoplasm of ureter] Onset: 12-10-2022 07-13-2019 Episodic Conditions associated with dizziness or vertigo (6 sources) Dizziness and giddiness; Translations: [DIZZINESS AND GIDDINESS] Onset: 12-08-2022 Episodic Deficiency and other anemia (1 source) Anemia, unspecified; Translations: [ANEMIA UNSPECIFIED] Onset: 09-30-2022 Episodic Diabetes mellitus without complication (1 source) Other abnormal glucose; Translations: [OTHER ABNORMAL GLUCOSE] Onset: 09-30-2022 Episodic Fluid and electrolyte disorders (3 sources) Metabolic acidosis; Translations: [Hypo-osmolality and hyponatremia] Onset: 11-12-2022 Episodic Genitourinary symptoms and ill-defined conditions (20 sources) Tre hematuria; Translations: [Gross hematuria] Onset: 11-09-2022 11-14-2022 Episodic Other aftercare (2 sources) Encounter for other specified surgical aftercare; Translations: [Encounter for other specified surgical aftercare] Onset: 03-27-2023 Episodic Other diseases of kidney and ureters (20 sources) Hydronephrosis; Translations: [Unspecified hydronephrosis] Onset: 09-30-2019 09-30-2019 Episodic Other diseases of kidney and ureters (1 source) Unspecified hydronephrosis; Translations: [Hydronephrosis of right kidney] Onset: 11-12-2022 Episodic Other nervous system disorders (1 source) Other acute postprocedural pain; Translations: [Postoperative pain] Onset: 11-12-2022 Episodic Residual codes; unclassified (20 sources) Absent kidney; Translations: [Acquired absence of kidney] Onset: 07-18-2018 10-26-2021 Episodic Syncope (6 sources) Syncope and collapse; Translations: [SYNCOPE AND COLLAPSE] Onset: 01-11-2023 Episodic Results Test Name Value Interpretation Reference Range Facility CBC AND AUTO DIFFon 11-02-19 ABSOLUTE BASOPHIL 0.0 X10E9/L Normal 0.0-0.2 [facility] Comment on above: Performed By: #### C BCA, 67440-2, CMP, 3040-3, 38795-9, 70404- 9 #### [facility] ([id number]) [address] [place] [address] 50497 ABSOLUTE NEUTROPHIL 8.0 X10E9/L High 1.5-6.6 [facility] Comment on above: Performed By: #### C BCA, 55457-3, CMP, 3040-3, 54351-2, 96337- 9 #### [facility] ([id number]) [address] [place] [address] 20138 Basophils/100 WBC (Bld) 0.3 % Normal [facility] Comment on above: Performed By: #### C BCA, 16186-0, CMP, 3040-3, 94013-0, 50856- 9 #### [facility] ([id number]) [address] [place] [address] 79470 Eosinophils (Bld) [#/Vol] 0.1 10*3/uL Normal 0.0-0.4 [facility] Comment on above: Performed By: #### C BCA, 71735-7, CMP, 3040-3, 59462-0, 83316- 9 #### [facility] ([id number]) [address] [place] [address] 83634 Eosinophils/100 WBC (Bld) 0.9 % Normal [facility] Comment on above: Performed By: #### C BCA, 61920-6, CMP, 3040-3, 34885-1, 26626- 9 #### [facility] ([id number]) [address] [place] [address] 48351 Erythrocyte distribution width (RBC) [Ratio] 14.8 % Normal 11.5-15.0 [facility] Comment on above: Performed By: #### Emir CAMPOS, 57730-4, CMP, 3040-3, 78410-7, - #### [facility] ([id number]) [address] [place] [address] 16568 Hematocrit (Bld) [Volume fraction] 40.4 % Normal 39-49 [facility] Comment on above: Performed By: #### C BCA, 83438-4, CMP, 3040-3, 47528-3, 45786- 9 #### [facility] ([id number]) [address] [place] [address] 94234 Hemoglobin (Bld) [Mass/Vol] 14.1 g/dL Normal 13.0-17.0 [facility] Comment on above: Performed By: #### Emir BCA, 24124-8, CMP, 3040-3, 69338-0, 94477- 9 #### [facility] ([id number]) [address] [place] [address] 43984 Lymphocytes (Bld) [#/Vol] 0.4 10*3/uL Low 1.0-3.5 [facility] Comment on above: Performed By: #### Emir BCA, 53692-2, CMP, 3040-3, 07832-5, 61931- 9 #### [facility] ([id number]) [address] [place] [address] 20698 Lymphocytes/100 WBC (Bld) 4.7 % Normal [facility] Comment on above: Performed By: #### C BCA, 15423-1, CMP, 3040-3, 60045-9, - #### [facility] ([id number]) [address] [place] [address] 73020 MCH (RBC) [Entitic mass] 27.5 pg Normal 27-34 [facility] Comment on above: Performed By: #### C BCA, 82719-0, CMP, 3040-3, 73938-1, - #### [facility] ([id number]) [address] [place] [address] 38907 MCHC (RBC) [Mass/Vol] 35.0 g/dL Normal 32-36 [facility] Comment on above: Performed By: #### Emir BCA, 02921-9, CMP, 3040-3, 40050-8, - #### [facility] ([id number]) [address] [place] [address] 27606 MCV (RBC) [Entitic vol] 79 fL Low 80-100 [facility] Comment on above: Performed By: #### C BCA, 80779-0, CMP, 3040-3, 23056-5, - #### [facility] ([id number]) [address] [place] [address] 46085 Monocytes (Bld) [#/Vol] 0.7 10*3/uL Normal 0-0.9 [facility] Comment on above: Performed By: #### C BCA, 30712-5, CMP, 3040-3, 40204-2, - #### [facility] ([id number]) [address] [place] [address] 09679 Monocytes/100 WBC (Bld) 7.9 % Normal [facility] Comment on above: Performed By: #### C BCA, 18773-3, CMP, 3040-3, 98674-5, 06082- 9 #### [facility] ([id number]) [address] [place] [address] 06177 Neutrophils/100 WBC (Bld) 86.2 % Normal [facility] Comment on above: Performed By: #### C BCA, 40070-6, CMP, 3040-3, 67862-1, 35546- 9 #### [facility] ([id number]) [address] [place] [address] 13998 Platelet mean volume (Bld) [Entitic vol] 6.9 fL Low 7-12 [facility] Comment on above: Performed By: #### C BCA, 74506-1, CMP, 3040-3, 26573-7, 30635- 9 #### [facility] ([id number]) [address] [place] [address] 05906 Platelets (Bld) [#/Vol] 345 10*3/uL Normal 150-450 [facility] Comment on above: Performed By: #### C BCA, 46226-2, CMP, 3040-3, 00425-2, 69085- 9 #### [facility] ([id number]) [address] [place] [address] 58469 RBC COUNT 5.13 X10E12/L Normal 4.10-5.70 [facility] Comment on above: Performed By: #### C BCA, 02234-9, CMP, 3040-3, 44164-7, 60243- 9 #### [facility] ([id number]) [address] [place] [address] 81144 WBC (Bld) [#/Vol] 9.3 10*3/uL Normal 4.0-11.0 [facility] Comment on above: Performed By: #### C BCA, 20425-6, CMP, 3040-3, 97787-2, 66239- 9 #### [facility] ([id number]) [address] [place] [address] 14245 COMPREHENSIVE METABOLIC PANE Taj 11-02-2023 Albumin [Mass/Vol] 3.2 g/dL Normal 3.2-5.3 [facility] Comment on above: Performed By: #### C BCA, 45337-8, CMP, 3040-3, 72583-4, 79452- 9 #### [facility] ([id number]) [address] [place] [address] 28530 ALP [Catalytic activity/Vol] 54 U/L Normal 39-130 [facility] Comment on above: Performed By: #### C BCA, 27052-9, CMP, 3040-3, 80816-3, 91849- 9 #### [facility] ([id number]) [address] [place] [address] 99862 ALT [Catalytic activity/Vol] 19 U/L Normal 0-40 [facility] Comment on above: Performed By: #### C BCA, 34685-0, CMP, 3040-3, 60800-4, 44634- 9 #### [facility] ([id number]) [address] [place] [address] 66428 Anion gap [Moles/Vol] 9 mmol/L Normal 5-15 [facility] Comment on above: Performed By: #### C BCA, 38608-7, CMP, 3040-3, 43728-8, 18127- 9 #### [facility] ([id number]) [address] [place] [address] 87898 AST [Catalytic activity/Vol] 24 U/L Normal 0-41 [facility] Comment on above: Performed By: #### C BCA, 00819-5, CMP, 3040-3, 23674-2, 76632- 9 #### [facility] ([id number]) [address] [place] [address] 58615 Bilirubin [Mass/Vol] 0.9 mg/dL Normal 0.3-1.2 [facility] Comment on above: Performed By: #### C BCA, 85287-6, CMP, 3040-3, 70369-5, 49488- 9 #### [facility] ([id number]) [address] [place] [address] 17390 Calcium [Mass/Vol] 8.3 mg/dL Low 8.5-10.5 [facility] Comment on above: Performed By: #### C BCA, 33602-7, CMP, 3040-3, 48461-0, 00779- 9 #### [facility] ([id number]) [address] [place] [address] 46432 Chloride [Moles/Vol] 99 mmol/L Normal 98-109 [facility] Comment on above: Performed By: #### C BCA, 34032-6, CMP, 3040-3, 92418-0, - 9 #### [facility] ([id number]) [address] [place] [address] 41608 CO2 [Moles/Vol] 24 mmol/L Normal 22-32 [facility] Comment on above: Performed By: #### C BCA, 31001-7, CMP, 3040-3, 70358-8, - 9 #### [facility] ([id number]) [address] [place] [address] 25122 Creatinine [Mass/Vol] 1.85 mg/dL High 0.70-1.20 [facility] Comment on above: Result Comment: METH OD TRACEABLE TO IDMS STANDARD Performed By: #### C BCA, 23728-6, CMP, 3040-3, 80098-6, 49078-4 #### [facility] ([id number]) [address] [place] [address] 54432 GFR/1.73 sq M.predicted among non-blacks MDRD (S/P/Bld) [Vol rate/Area] 35 mL/min/{1.73_m2} Low >59 [facility] Comment on above: Result Comment: Reported eGFR is based on the CKD-EPI 2020 equation that does not use a race coefficient. Performed By: #### C BCA, 52817-1, CMP, 3040-3, 44915-4, 20334-9 #### [facility] ([id number]) [address] [place] [address] 23348 Glucose [Mass/Vol] 118 mg/dL High 65-99 [facility] Comment on above: Performed By: #### C BCA, 74179-2, CMP, 3040-3, 75645-7, 95465- 9 #### [facility] ([id number]) [address] [place] [address] 97620 Potassium [Moles/Vol] 3.9 mmol/L Normal 3.5-5.0 [facility] Comment on above: Performed By: #### C BCA, 11391-5, CMP, 3040-3, 37221-6, 15198- 9 #### [facility] ([id number]) [address] [place] [address] 97112 Protein [Mass/Vol] 5.5 g/dL Low 6.0-8.0 [facility] Comment on above: Performed By: #### C BCA, 07043-4, CMP, 3040-3, 52440-3, 26966- 9 #### [facility] ([id number]) [address] [place] [address] 18341 Sodium [Moles/Vol] 132 mmol/L Low 134-146 [facility] Comment on above: Performed By: #### C BCA, 17363-8, CMP, 3040-3, 86638-0, 26298- 9 #### [facility] ([id number]) [address] [place] [address] 39569 Urea nitrogen [Mass/Vol] 30 mg/dL High 5-27 [facility] Comment on above: Performed By: #### C BCA, 86150-9, CMP, 3040-3, 42129-2, 95726- 9 #### [facility] ([id number]) [address] [place] [address] ABDOMEN AND PELVIS W CONT on 11-02-2023 CT ABDOMEN AND PELVIS W CONT CT ABDOMEN AND PELVIS W CONT STUDY: ABDOMEN AND PELVIS CT WITH CONTRAST CLINICAL HISTORY: Acute abdominal pain Abdominal pain, acute, nonlocalized COMPARISON: 06/26/2011 TECHNIQUE: CT abdomen and pelvis was performed utilizing 5 mm axial reconstructions following the uneventful administration of 100 cc Omnipaque 300 nonionic intravenous contrast. Coronal and sagittal reformatted images as well as delayed excretory phase images were obtained and reviewed. Automated exposure control was utilized. FINDINGS: Abdomen: No pleural or pericardial effusion at the lung bases. There is no lower lateral lung consolidation seen. The liver, adrenal glands, pancreas and spleen appear to be unremarkable. The gallbladder is distended. If concern for acute gallbladder pathology consider ultrasound or HIDA scan. The adrenal glands pancreas and spleen appear unremarkable. Left nephrectomy changes. Small bowel is nondilated. There are no enlarged mesenteric or retroperitoneal lymph nodes. No right renal collecting system dilatation. Pelvis: No free pelvic fluid. Prostate is mildly enlarged. Small fat-containing inguinal hernias are suggested. Multilevel degenerative change of the thoracic spine. No vertebral body height loss. IMPRESSION: 1. No definitive evidence of acute abdominal or pelvic processes identified. 2. Distended gallbladder. If concern for acute gallbladder pathology consider ultrasound. 3. 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 All CT scans at this facility use dose modulation, iterative reconstruction, and/or weight based dosing when appropriate to reduce radiation dose to as low as reasonably achievable. Finalized by Alexis Licea MD on 11/02/2023 2:43 PM Normal [facility] LIPASEon 11-02-2023 Lipase [Catalytic activity/Vol] 45 U/L High 17-40 [facility] Comment on above: Performed By: #### C BCA, 79485-3, CMP, 3040-3, 15291-2, 33259- 9 #### [facility] ([id number]) [address] [place] [address] 24226 Lactate (P michelle) [Moles/Vol]o n 11-02-2023 LACTATE W/REFLEX 1.2 mmol/L Normal 0.4-2.0 [facility] Comment on above: Result Comment: Result did not trigger repeat Lactate, re-order if needed. Performed By: #### C BCA, 31567-5, CMP, 3040-3, 63860-8, 78439-8 #### [facility] ([id number]) [address] [place] [address] MAGNESIUMon 11-02-2023 Magnesium [Mass/Vol] 1.7 mg/dL Low 1.8-2.6 [facility] Comment on above: Performed By: #### C BCA, 20046-4, CMP, 3040-3, 76758-5, 28138- 9 #### [facility] ([id number]) [address] [place] [address] SARS/FLU A+B/RSV by NAAT/Mol ecularon 11-02-2023 SARS/FLU A+B/RSV by NAAT/Molecular FLU A PCR Negative (qualifier value) FLU B PCR Negative (qualifier value) RSV by PCR Negative (qualifier value) SARS CoV 2 Not detected (qualifier value) NOTE The Xpert Xpress SARS-CoV-2/Flu/RSV Plus test is a rapid, multiplexed real-time RT-PCR test intended for the simultaneous qualitative detection and differentiation of SARS-CoV-2, influenza A, influenza B and respiratory syncytial virus (RSV) viral RNA from individuals suspected of respiratory viral infection consistent with COVID-19 by their healthcare provider. This test has not been validated in asymptomatic patients. The Xpert Xpress SARS-CoV-2 test is intended for use by qualified and trained operators who are performing tests using either [employer] DX or [employer] systems and is limited to laboratories that meet the CLIA requirements to perform high and moderate complexity tests. The Xpert Xpress SARS-CoV-2/Flu/RSV Plus is only for use under the Food and Drug Administration's Emergency Use Authorization. Results are for the simultaneous detection and differentiation of SARS-CoV-2, influenza A, influenza B and RSV nucleic acids in clinical specimens. SARS-CoV-2, influenza A, influenza B and RSV RNA identified by this test are generally detectable in upper respiratory samples during the acute phase of infection. Positive results are indicative of the presence of the identified virus, but do not rule out bacterial infection or co-infection with other pathogens not detected by this test. Clinical correlation with patient history and other diagnostic information is necessary to determine patient infection status. The agent detected may not be the definite cause of disease. Negative results do not preclude SARS-CoV-2, influenza A, influenza B and RSV infection and should not be used as the sole basis for treatment or other patient management decisions. Negative results must be combined with clinical observations, patient history and epidemiological information. An Invalid result may occur with specimen-associated inhibition unable to be resolved with specimen repeat. Fact Sheet for Healthcare Providers: https://www.fda.gov/m edia/863716/download Fact Sheet for Patients: https://www.fda.gov/m edia/405407/download Normal [facility] Comment on above: Performed By: #### C OVFLR #### [facility] ([id number]) [address] [place] [address] 52950 TROPONIN Ion 11-02-2023 Troponin I.cardiac [Mass/Vol] 0.07 ng/mL High 0.00-0.04 [facility] Comment on above: Result Comment: Concentrations greater than or equal to 0.05 ng/ml are considered elevated. Elevations of Troponin may be due to causes other than myocardial ischemia. Recommend serial Troponin testing be performed. Performed By: #### 1 0839-9 #### [facility] ([id number]) [address] [place] [address] 48066 Troponin I.cardiac [Mass/Vol] 0.07 ng/mL High 0.00-0.04 [facility] Comment on above: Result Comment: Concentrations greater than or equal to 0.05 ng/ml are considered elevated. Elevations of Troponin may be due to causes other than myocardial ischemia. Recommend serial Troponin testing be performed. Performed By: #### C BCA, 56620-8, CMP, 3040-3, 91919-9, 32665-9 #### [facility] ([id number]) [address] [place] [address] 05831 URN MACROSCOPIC NURon 2023 BILIRUBIN JUDY Negative Normal NEG [facility] Comment on above: Performed By: #### N UM #### [facility] ([id number]) [address] [place] [address] 30404 BLOOD/HGB JUDY Trace Abnormal NEG [facility] Comment on above: Performed By: #### N UM #### [facility] ([id number]) [address] [place] [address] 47891 GLUCOSE JUDY Negative Normal NEG [facility] Comment on above: Performed By: #### N UM #### [facility] ([id number]) [address] [place] [address] 65840 KETONES JUDY Negative Normal NEG [facility] Comment on above: Performed By: #### N UM #### [facility] ([id number]) [address] [place] [address] 45146 LEUKOCYTE ESTERASE JUDY Negative Normal NEG [facility] Comment on above: Performed By: #### N UM #### [facility] ([id number]) [address] [place] [address] 35310 NITRITE JUDY Negative Normal NEG [facility] Comment on above: Performed By: #### N UM #### [facility] ([id number]) [address] [place] [address] 48120 PH JUDY 5.5 Normal 5.0-8.5 [facility] Comment on above: Performed By: #### N UM #### [facility] ([id number]) [address] [place] [address] 89296 PROTEIN JUDY Negative Normal NEG [facility] Comment on above: Performed By: #### N UM #### [facility] ([id number]) [address] [place] [address] 98321 SPECIFIC GRAVITY JUDY <=1.005 Normal 1.003-1.035 [facility] Comment on above: Performed By: #### N UM #### [facility] ([id number]) [address] [place], [place] [address] UROBILINOGEN JUDY 0.2 eu/dL Normal <1.1 [facility] Comment on above: Performed By: #### N UM #### [facility] ([id number]) [address] [place], [place] [address] CNPNon 10-29-2023 CNPN Normal [facility] CBC W Auto Differential pane l (Bld)on 10-10-2023 Basophils (Bld) [#/Vol] 0.08 10*3/uL Normal <0.11 [facility] Comment on above: Order Comment: Speci men Type: BLOOD SPECIMENOrdering Facility: [facility] Address: [address] [place] [address] Performed By: #### 5 7021-8 ####[facility] LABCLIA [id number] [place] [address] Basophils/100 WBC (Bld) 1.0 % Normal [facility] Comment on above: Order Comment: Speci men Type: BLOOD SPECIMENOrdering Facility: [facility] Address: [address] [place] [address] Performed By: #### 5 7021-8 ####[facility] LABCLIA [id number] [place] [address] Differential cell count method Nom (Bld) Auto Normal [facility] Comment on above: Order Comment: Speci men Type: BLOOD SPECIMENOrdering Facility: [facility] Address: [address] [place] [address] Performed By: #### 5 7021-8 ####[facility] LABCL[facility] [id number] [place] [address] Eosinophils (Bld) [#/Vol] 0.14 10*3/uL Normal <0.46 [facility] Comment on above: Order Comment: Speci men Type: BLOOD SPECIMENOrdering Facility: [facility] Address: [address] [place] [address] Performed By: #### 5 7021-8 ####[facility] LABCL[facility] [id number] [place] [address] Eosinophils/100 WBC (Bld) 1.8 % Normal [facility] Comment on above: Order Comment: Speci men Type: BLOOD SPECIMENOrdering Facility: [facility] Address: [address] [place] [address] Performed By: #### 5 7021-8 ####[facility] LABCLIA [id number] [place] [address] Erythrocyte distribution width (RBC) [Ratio] 14.0 % Normal 11.5-15.0 [facility] Comment on above: Order Comment: Speci men Type: BLOOD SPECIMENOrdering Facility: [facility] Address: [address] [place] [address] Performed By: #### 5 7021-8 ####[facility] LABCLIA [id number] [place] [address] Hematocrit (Bld) [Volume fraction] 40.5 % Normal 39.0-51.0 [facility] Comment on above: Order Comment: Speci men Type: BLOOD SPECIMENOrdering Facility: [facility] Address: [address] [place] [address] Performed By: #### 5 7021-8 ####[facility] LABCLIA [id number] [place] [address] Hemoglobin (Bld) [Mass/Vol] 13.1 g/dL Normal 13.0-17.0 [facility] Comment on above: Order Comment: Speci men Type: BLOOD SPECIMENOrdering Facility: [facility] Address: [address] [place] [address] Performed By: #### 5 7021-8 ####[facility] LABCLIA [id number] [place] [address] Immature granulocytes (Bld) [#/Vol] 0.04 10*3/uL Normal <0.10 [facility] Comment on above: Order Comment: Speci men Type: BLOOD SPECIMENOrdering Facility: [facility] Address: [address] [place] [address] Performed By: #### 5 7021-8 ####[facility]CLIA [id number] [place] [address] Immature granulocytes/100 WBC (Bld) 0.5 % Normal [facility] Comment on above: Order Comment: Speci men Type: BLOOD SPECIMENOrdering Facility: [facility] Address: [address] [place] [address] Performed By: #### 5 7021-8 ####[facility] LABCLIA [id number] [place] [address] Lymphocytes (Bld) [#/Vol] 0.81 10*3/uL Low 1.00-4.00 [facility] Comment on above: Order Comment: Speci men Type: BLOOD SPECIMENOrdering Facility: [facility] Address: [address] [place] [address] Performed By: #### 5 7021-8 ####[facility] LABCLIA [id number] [place] [address] Lymphocytes/100 WBC (Bld) 10.3 % Normal [facility] Comment on above: Order Comment: Speci men Type: BLOOD SPECIMENOrdering Facility: [facility] Address: [address] [place] [address] Performed By: #### 5 7021-8 ####[facility] LABIA [id number] [place] [address] MCH (RBC) [Entitic mass] 27.8 pg Normal 26.0-34.0 [facility] Comment on above: Order Comment: Speci men Type: BLOOD SPECIMENOrdering Facility: [facility] Address: [address] [place] [address] Performed By: #### 5 7021-8 ####[facility] LABCLIA [id number] [place] [address] MCHC (RBC) [Mass/Vol] 32.3 g/dL Normal 30.5-36.0 [facility] Comment on above: Order Comment: Speci men Type: BLOOD SPECIMENOrdering Facility: [facility] Address: [address] [place] [address] Performed By: #### 5 7021-8 ####[facility] LABCLIA [id number] [place] [address] MCV (RBC) [Entitic vol] 85.8 fL Normal 80.0-100.0 [facility] Comment on above: Order Comment: Speci men Type: BLOOD SPECIMENOrdering Facility: [facility] Address: [address] [place] [address] Performed By: #### 5 7021-8 ####[facility] LABCLIA [id number] [place] [address] Monocytes (Bld) [#/Vol] 0.55 10*3/uL Normal <0.87 [facility] Comment on above: Order Comment: Speci men Type: BLOOD SPECIMENOrdering Facility: [facility] Address: [address] [place] [address] Performed By: #### 5 7021-8 ####[facility] LABCLIA [id number] [place] [address] Monocytes/100 WBC (Bld) 7.0 % Normal [facility] Comment on above: Order Comment: Speci men Type: BLOOD SPECIMENOrdering Facility: [facility] Address: [address] [place] [address] Performed By: #### 5 7021-8 ####[facility] LABCLIA [id number] [place] [address] Neutrophils (Bld) [#/Vol] 6.21 10*3/uL Normal 1.45-7.50 [facility] Comment on above: Order Comment: Speci men Type: BLOOD SPECIMENOrdering Facility: [facility] Address: [address] [place] [address] Performed By: #### 5 7021-8 ####[facility]CLIA [id number] [place] [address] Neutrophils/100 WBC (Bld) 79.4 % Normal [facility] Comment on above: Order Comment: Speci men Type: BLOOD SPECIMENOrdering Facility: [facility] Address: [address] [place] [address] Performed By: #### 5 7021-8 ####[facility]CLIA [id number] [place] [address] Nucleated RBC (Bld) [#/Vol] 10*3/uL Normal <0.01 [facility] Comment on above: Order Comment: Speci men Type: BLOOD SPECIMENOrdering Facility: [facility] Address: [address] [place] [address] Performed By: #### 5 7021-8 ####[facility] LABCLIA [id number] [place] [address] Nucleated RBC/100 WBC (Bld) [Ratio] 0.0 /100 WBC Normal [facility] Comment on above: Order Comment: Speci men Type: BLOOD SPECIMENOrdering Facility: [facility] Address: [address] [place] [address] Performed By: #### 5 7021-8 ####[facility] LABCLIA [id number] [place] [address] Platelet mean volume (Bld) [Entitic vol] 8.6 fL Low 9.0-12.7 [facility] Comment on above: Order Comment: Speci men Type: BLOOD SPECIMENOrdering Facility: [facility] Address: [address] [place] [address] Performed By: #### 5 7021-8 ####[facility]CL[facility] [id number] [place] [address] Platelets (Bld) [#/Vol] 253 10*3/uL Normal 150-400 [facility] Comment on above: Order Comment: Speci men Type: BLOOD SPECIMENOrdering Facility: [facility] Address: [address] [place] [address] Performed By: #### 5 7021-8 ####[facility] LABIA [id number] [place] [address] RBC (Bld) [#/Vol] 4.72 10*6/uL Normal 4.20-6.00 [facility] Comment on above: Order Comment: Speci men Type: BLOOD SPECIMENOrdering Facility: [facility] Address: [address] [place] [address] Performed By: #### 5 7021-8 ####[facility] [id number] [place] [address] WBC (Bld) [#/Vol] 7.83 10*3/uL Normal 3.70-11.00 [facility] Comment on above: Order Comment: Speci men Type: BLOOD SPECIMENOrdering Facility: [facility] Address: [address] [place] [address] Performed By: #### 5 7021-8 ####[facility] LABIA [id number] [place] [address] CNOVSPon 10-10-2023 CNOVSP Normal [facility] Comprehensive metabolic 2000 panelon 10-10-2023 Albumin [Mass/Vol] 4.0 g/dL Normal 3.9-4.9 [facility] Comment on above: Order Comment: Speci men Type: BLOOD SPECIMENOrdering Facility: [facility] Address: [address] [place] [address] Performed By: #### 2 4323-8 ####[facility] LABIA [id number] [place] [address] ALP [Catalytic activity/Vol] 75 U/L Normal 38-113 [facility] Comment on above: Order Comment: Speci men Type: BLOOD SPECIMENOrdering Facility: [facility] Address: [address] [place] [address] Performed By: #### 2 4323-8 ####[facility] LABCLIA [id number] [place] [address] ALT [Catalytic activity/Vol] 15 U/L Normal 10-54 [facility] Comment on above: Order Comment: Speci men Type: BLOOD SPECIMENOrdering Facility: [facility] Address: [address] [place] [address] Performed By: #### 2 4323-8 ####[facility] LABCLIA [id number] [place] [address] Anion gap [Moles/Vol] 8 mmol/L Low 9-18 [facility] Comment on above: Order Comment: Speci men Type: BLOOD SPECIMENOrdering Facility: [facility] Address: [address] [place] [address] Performed By: #### 2 4323-8 ####[facility]CLIA [id number] [place] [address] AST [Catalytic activity/Vol] 23 U/L Normal 14-40 [facility] Comment on above: Order Comment: Speci men Type: BLOOD SPECIMENOrdering Facility: [facility] Address: [address] [place] [address] Performed By: #### 2 4323-8 ####[facility]CLIA [id number] [place] [address] Bilirubin [Mass/Vol] 0.4 mg/dL Normal 0.2-1.[address] [facility] Comment on above: Order Comment: Speci men Type: BLOOD SPECIMENOrdering Facility: [facility] Address: [address] [place] [address] Performed By: #### 2 4323-8 ####[facility]CLIA [id number] [place] [address] Calcium [Mass/Vol] 9.0 mg/dL Normal 8.5-10.2 [facility] Comment on above: Order Comment: Speci men Type: BLOOD SPECIMENOrdering Facility: [facility] Address: [address] [place] [address] Performed By: #### 2 4323-8 ####[facility]CLIA [id number] [place] [address] Chloride [Moles/Vol] 99 mmol/L Normal 97-[address] [facility] Comment on above: Order Comment: Speci men Type: BLOOD SPECIMENOrdering Facility: [facility] Address: [address] [place] [address] Performed By: #### 2 4323-8 ####[facility] LABCLIA [id number] [place] [address] CO2 [Moles/Vol] 27 mmol/L Normal 22-30 [facility] Comment on above: Order Comment: Speci men Type: BLOOD SPECIMENOrdering Facility: [facility] Address: [address] [place] [address] Performed By: #### 2 4323-8 ####[facility] LABCLIA [id number] [place] [address] Creatinine [Mass/Vol] 1.78 mg/dL High 0.73-1.22 [facility] Comment on above: Order Comment: Speci men Type: BLOOD SPECIMENOrdering Facility: [facility] Address: [address] [place] [address] Performed By: #### 2 4323-8 ####[facility] LABCLIA [id number] [place] [address] Creatinine and Glomerular filtration rate.predicted panel (S/P/Bld) 37 mL/min/1.73m??? Low >=60 [facility] Comment on above: Order Comment: Speci men Type: BLOOD SPECIMENOrdering Facility: [facility] Address: [address] [place] [address] Result Comment: Viviana mated Glomerular Filtration Rate (eGFR) is calculated using the 2020 CKD-EPI creatinine equation. This equation utilizes serum creatinine, sex, and age as parameters. The creatinine assay has traceable calibration to isotope dilution-mass spectrometry. Refer to KDIGO guidelines for clinical interpretation. In patients with unstable renal function, e.g. those with acute kidney injury, the eGFR may not accurately reflect actual GFR. Performed By: #### 2 4323-8 ####[facility] LABCLIA [id number] [place] [address] Glucose [Mass/Vol] 109 mg/dL High 74-99 [facility] Comment on above: Order Comment: Vero barton Type: BLOOD SPECIMENOrdering Facility: [facility] Address: [address] [place] [address] Result Comment: The [place] Diabetes Association (ADA) provides guidance for cutoff values for fasting glucose and random glucose. The ADA defines fasting as no caloric intake for at least 8 hours. Fasting plasma glucose results between 100 to 125 mg/dL indicate increased risk for diabetes (prediabetes).Fasting plasma glucose results greater than or equal to 126 mg/dL meet the criteria for diagnosis of diabetes. In the absence of unequivocal hyperglycemia, results should be confirmed by repeat testing. In a patient with classic symptoms of hyperglycemia or hyperglycemic crisis, random plasma glucose results greater than or equal to 200 mg/dL meet the criteria for diagnosis of diabetes.Reference: Standards of Medical Care in Diabetes 2016, [place] [employer] Association. Diabetes Care. 2016.39(Suppl 1). Performed By: #### 2 4323-8 ####[facility] LABCLIA [id number] [place] [address] Potassium [Moles/Vol] 3.9 mmol/L Normal 3.7-5.1 [facility] Comment on above: Order Comment: Vero barton Type: BLOOD SPECIMENOrdering Facility: [facility] Address: [address] [id number] Performed By: #### 2 4323-8 ####[facility] LABCLIA [id number] [place] [address] Protein [Mass/Vol] 6.0 g/dL Low 6.3-8.0 [facility] Comment on above: Order Comment: Speci men Type: BLOOD SPECIMENOrdering Facility: [facility] Address: [address] [place] [address] Performed By: #### 2 4323-8 ####[facility]CLIA [id number] [place] [address] Sodium [Moles/Vol] 134 mmol/L Low 136-144 [facility] Comment on above: Order Comment: Speci men Type: BLOOD SPECIMENOrdering Facility: [facility] Address: [address] [place] [address] Performed By: #### 2 4323-8 ####[facility] LABCLIA [id number] [place] [address] Urea nitrogen [Mass/Vol] 29 mg/dL High 9-24 [facility] Comment on above: Order Comment: Speci men Type: BLOOD SPECIMENOrdering Facility: [facility] Address: [address] [place] [address] Performed By: #### 2 4323-8 ####[facility] LABCLIA [id number] [place] [address] Beverly Keisha-Ricaon 10-10-20 23 Cortisol [Mass/Vol] 8.6 ug/dL Normal 4.8-19.5 [facility] Comment on above: Order Comment: Speci men Type: BLOOD SPECIMENOrdering Facility: [facility] Address: [address] [place] [address] Result Comment: Prov ided reference range is from 6-10 AM sample collection time.Cortisol Reference Range: 6-10 AM = 4.8-19.5 ug/dL, 4-8 PM = 2.5-11.9 ug/dL Performed By: #### 3 016-3, 2143-6 ####[facility] LABCLIA [id number] [facility] [place] [address] [place] HbA1c (Bld)on 10-10-2023 Average glucose Estimated from glycated hemoglobin (Bld) [Mass/Vol] 105 mg/dL Normal [facility] Comment on above: Order Comment: Vero barton Type: BLOOD SPECIMENOrdering Facility: [facility] Address: [address] [place] [address] Result Comment: eAG: (Estimated average glucose) is a calculated value from HgbA1c and is patient financial representative of the average blood glucose level in the last 2-3 month period. Performed By: #### 5 5454-3 ####[facility] LABIA [id number] [place] [address] [place] HbA1c (Bld) [Mass fraction] 5.3 % Normal 4.3-5.6 [facility] Comment on above: Order Comment: Vero barton Type: BLOOD SPECIMENOrdering Facility: [facility] Address: [address] [place] [address] Result Comment: [place] Diabetes Association guidelines indicate that patients with HgbA1c in the range 5.7-6.4% are at increased risk for development of diabetes, and intervention by lifestyle modification may be beneficial. HgbA1c greater or equal to 6.5% is considered diagnostic of diabetes. Performed By: #### 5 5454-3 ####[facility] LABIA [id number] [place] [address] [place] TSH SerPl-aCncon 10-10-2023 TSH Qn 2.900 m[IU]/L Normal 0.270-4.200 [facility] Comment on above: Order Comment: Vero men Type: BLOOD SPECIMENOrdering Facility: [facility] Address: [address] [place] [address] Performed By: #### 3 016-3, 2143-6 ####[facility] LABIA [id number] [place] [address] [place] CBC W Auto Differential pane l (Bld)on 09-19-2023 Basophils (Bld) [#/Vol] 0.05 10*3/uL Normal <0.11 [facility] Comment on above: Order Comment: Speci men Type: BLOOD SPECIMENOrdering Facility: [facility] Address: [address] [place] [address] Performed By: #### 5 7021-8 ####[facility] LABCLIA [id number] [place] [address] Basophils/100 WBC (Bld) 0.5 % Normal [facility] Comment on above: Order Comment: Speci men Type: BLOOD SPECIMENOrdering Facility: [facility] Address: [address] [place] [address] Performed By: #### 5 7021-8 ####[facility] LABCLIA [id number] [place] [address] Differential cell count method Nom (Bld) Auto Normal [facility] Comment on above: Order Comment: Speci men Type: BLOOD SPECIMENOrdering Facility: [facility] Address: [address] [place] [address] Performed By: #### 5 7021-8 ####[facility] LABCLIA [id number] [place] [address] Eosinophils (Bld) [#/Vol] 0.15 10*3/uL Normal <0.46 [facility] Comment on above: Order Comment: Speci men Type: BLOOD SPECIMENOrdering Facility: [facility] Address: [address] [place] [address] Performed By: #### 5 7021-8 ####[facility] LABCLIA [id number] [place] [address] Eosinophils/100 WBC (Bld) 1.6 % Normal [facility] Comment on above: Order Comment: Speci men Type: BLOOD SPECIMENOrdering Facility: [facility] Address: [address] [place] [address] Performed By: #### 5 7021-8 ####[facility] LABCLIA [id number] [place] [address] Erythrocyte distribution width (RBC) [Ratio] 14.2 % Normal 11.5-15.0 [facility] Comment on above: Order Comment: Speci men Type: BLOOD SPECIMENOrdering Facility: [facility] Address: [address] [place] [address] Performed By: #### 5 7021-8 ####[facility] LABCLIA [id number] [place] [address] Hematocrit (Bld) [Volume fraction] 38.0 % Low 39.0-51.0 [facility] Comment on above: Order Comment: Speci men Type: BLOOD SPECIMENOrdering Facility: [facility] Address: [address] [place] [address] Performed By: #### 5 7021-8 ####[facility] LABIA [id number] [place] [address] Hemoglobin (Bld) [Mass/Vol] 12.7 g/dL Low 13.0-17.0 [facility] Comment on above: Order Comment: Speci men Type: BLOOD SPECIMENOrdering Facility: [facility] Address: [address] [place] [address] Performed By: #### 5 7021-8 ####[facility] LABIA [id number] [place] [address] Immature granulocytes (Bld) [#/Vol] 0.05 10*3/uL Normal <0.10 [facility] Comment on above: Order Comment: Speci men Type: BLOOD SPECIMENOrdering Facility: [facility] Address: [address] [place] [address] Performed By: #### 5 7021-8 ####[facility] LABIA [id number] [place] [address] Immature granulocytes/100 WBC (Bld) 0.5 % Normal [facility] Comment on above: Order Comment: Speci men Type: BLOOD SPECIMENOrdering Facility: [facility] Address: [address] [place] [address] Performed By: #### 5 7021-8 ####[facility] LABCLIA [id number] [place] [address] Lymphocytes (Bld) [#/Vol] 0.47 10*3/uL Low 1.00-4.00 [facility] Comment on above: Order Comment: Speci men Type: BLOOD SPECIMENOrdering Facility: [facility] Address: [address] [place] [address] Performed By: #### 5 7021-8 ####[facility] LABCLIA [id number] [place] [address] Lymphocytes/100 WBC (Bld) 5.0 % Normal [facility] Comment on above: Order Comment: Speci men Type: BLOOD SPECIMENOrdering Facility: [facility] Address: [address] [place] [address] Performed By: #### 5 7021-8 ####[facility] LABCLIA [id number] [place] [address] MCH (RBC) [Entitic mass] 28.2 pg Normal 26.0-34.0 [facility] Comment on above: Order Comment: Speci men Type: BLOOD SPECIMENOrdering Facility: [facility] Address: [address] [place] [address] Performed By: #### 5 7021-8 ####[facility] LABCLIA [id number] [place] [address] MCHC (RBC) [Mass/Vol] 33.4 g/dL Normal 30.5-36.0 [facility] Comment on above: Order Comment: Speci men Type: BLOOD SPECIMENOrdering Facility: [facility] Address: [address] [place] [address] Performed By: #### 5 7021-8 ####[facility] LABCLIA [id number] [place] [address] MCV (RBC) [Entitic vol] 84.3 fL Normal 80.0-100.0 [facility] Comment on above: Order Comment: Speci men Type: BLOOD SPECIMENOrdering Facility: [facility] Address: [address] [place] [address] Performed By: #### 5 7021-8 ####[facility] LABCLIA [id number] [place] [address] Monocytes (Bld) [#/Vol] 0.58 10*3/uL Normal <0.87 [facility] Comment on above: Order Comment: Speci men Type: BLOOD SPECIMENOrdering Facility: [facility] Address: [address] [place] [address] Performed By: #### 5 7021-8 ####[facility] LABCLIA [id number] [place] [address] Monocytes/100 WBC (Bld) 6.2 % Normal [facility] Comment on above: Order Comment: Speci men Type: BLOOD SPECIMENOrdering Facility: [facility] Address: [address] [place] [address] Performed By: #### 5 7021-8 ####[facility] LABCLIA [id number] [place] [address] Neutrophils (Bld) [#/Vol] 8.05 10*3/uL High 1.45-7.50 [facility] Comment on above: Order Comment: Speci men Type: BLOOD SPECIMENOrdering Facility: [facility] Address: [address] [place] [address] Performed By: #### 5 7021-8 ####[facility] LABCLIA [id number] [place] [address] Neutrophils/100 WBC (Bld) 86.2 % Normal [facility] Comment on above: Order Comment: Speci men Type: BLOOD SPECIMENOrdering Facility: [facility] Address: [address] [place] [address] Performed By: #### 5 7021-8 ####[facility] LABCLIA [id number] [place] [address] Nucleated RBC (Bld) [#/Vol] 10*3/uL Normal <0.01 [facility] Comment on above: Order Comment: Speci men Type: BLOOD SPECIMENOrdering Facility: [facility] Address: [address] [place] [address] Performed By: #### 5 7021-8 ####[facility] LABCLIA [id number] [place] [address] Nucleated RBC/100 WBC (Bld) [Ratio] 0.0 /100 WBC Normal [facility] Comment on above: Order Comment: Speci men Type: BLOOD SPECIMENOrdering Facility: [facility] Address: [address] [place] [address] Performed By: #### 5 7021-8 ####[facility] LABCLIA [id number] [place] [address] Platelet mean volume (Bld) [Entitic vol] 9.4 fL Normal 9.0-12.7 [facility] Comment on above: Order Comment: Speci men Type: BLOOD SPECIMENOrdering Facility: [facility] Address: [address] [place] [address] Performed By: #### 5 7021-8 ####[facility] LABCLIA [id number] [place] [address] Platelets (Bld) [#/Vol] 156 10*3/uL Normal 150-400 [facility] Comment on above: Order Comment: Speci men Type: BLOOD SPECIMENOrdering Facility: [facility] Address: [address] [place] [address] Performed By: #### 5 7021-8 ####[facility] LABCLIA [id number] [place] [address] RBC (Bld) [#/Vol] 4.51 10*6/uL Normal 4.20-6.00 [facility] Comment on above: Order Comment: Speci men Type: BLOOD SPECIMENOrdering Facility: [facility] Address: [address] [place] [address] Performed By: #### 5 7021-8 ####[facility] LABCLIA [id number] [place] [address] WBC (Bld) [#/Vol] 9.35 10*3/uL Normal 3.70-11.00 [facility] Comment on above: Order Comment: Speci men Type: BLOOD SPECIMENOrdering Facility: [facility] Address: [address] [place] [address] Performed By: #### 5 7021-8 ####[facility] LABCLIA [id number] [place] [address] CNOVSPon 09-19-2023 CNOVSP Normal [facility] metabolic 2000 panelon 09-19-2023 Albumin [Mass/Vol] 3.6 g/dL Low 3.9-4.9 [facility] Comment on above: Order Comment: Speci men Type: BLOOD SPECIMENOrdering Facility: [facility] Address: [address] [place] [address] Performed By: #### 2 4323-8 ####[facility] LABCLIA [id number] [place] [address] ALP [Catalytic activity/Vol] 63 U/L Normal 38-113 [facility] Comment on above: Order Comment: Speci men Type: BLOOD SPECIMENOrdering Facility: [facility] Address: [address] [place] [address] Performed By: #### 2 4323-8 ####[facility] LABCLIA [id number] [place] [address] ALT [Catalytic activity/Vol] 18 U/L Normal 10-54 [facility] Comment on above: Order Comment: Speci men Type: BLOOD SPECIMENOrdering Facility: [facility] Address: [address] [place] [address] Performed By: #### 2 4323-8 ####[facility] LABCLIA [id number] [place] [address] Anion gap [Moles/Vol] 8 mmol/L Low 9-18 [facility] Comment on above: Order Comment: Speci men Type: BLOOD SPECIMENOrdering Facility: [facility] Address: [address] [place] [address] Performed By: #### 2 4323-8 ####[facility] LABCLIA [id number] [place] [address] AST [Catalytic activity/Vol] 19 U/L Normal 14-40 [facility] Comment on above: Order Comment: Speci men Type: BLOOD SPECIMENOrdering Facility: [facility] Address: [address] [place] [address] Performed By: #### 2 4323-8 ####[facility] LABCLIA [id number] [place] [address] Bilirubin [Mass/Vol] 0.7 mg/dL Normal 0.2-1.[address] [facility] Comment on above: Order Comment: Speci men Type: BLOOD SPECIMENOrdering Facility: [facility] Address: [address] [place] [address] Performed By: #### 2 4323-8 ####[facility] LABCLIA [id number] [place] [address] Calcium [Mass/Vol] 8.7 mg/dL Normal 8.5-10.2 [facility] Comment on above: Order Comment: Speci men Type: BLOOD SPECIMENOrdering Facility: [facility] Address: [address] [place] [address] Performed By: #### 2 4323-8 ####[facility] LABCLIA [id number] [place] [address] Chloride [Moles/Vol] 105 mmol/L Normal 97-[address] [facility] Comment on above: Order Comment: Speci men Type: BLOOD SPECIMENOrdering Facility: [facility] Address: [address] [place] [address] Performed By: #### 2 4323-8 ####[facility] LABCLIA [id number] [place] [address] CO2 [Moles/Vol] 28 mmol/L Normal 22-30 [facility] Comment on above: Order Comment: Speci men Type: BLOOD SPECIMENOrdering Facility: [facility] Address: [address] [place] [address] Performed By: #### 2 4323-8 ####[facility] LABCLIA [id number] [place] [address] Creatinine [Mass/Vol] 1.84 mg/dL High 0.73-1.22 [facility] Comment on above: Order Comment: Speci men Type: BLOOD SPECIMENOrdering Facility: [facility] Address: [address] [place] [address] Performed By: #### 2 4323-8 ####[facility] LABCLIA [id number] [place] [address] Creatinine and Glomerular filtration rate.predicted panel (S/P/Bld) 36 mL/min/1.73m??? Low >=60 [facility] Comment on above: Order Comment: Speci men Type: BLOOD SPECIMENOrdering Facility: [facility] Address: [address] [place] [address] Result Comment: Viviana mated Glomerular Filtration Rate (eGFR) is calculated using the 2020 CKD-EPI creatinine equation. This equation utilizes serum creatinine, sex, and age as parameters. The creatinine assay has traceable calibration to isotope dilution-mass spectrometry. Refer to KDIGO guidelines for clinical interpretation. In patients with unstable renal function, e.g. those with acute kidney injury, the eGFR may not accurately reflect actual GFR. Performed By: #### 2 4323-8 ####[facility] LABCLIA [id number] [place] [address] Glucose [Mass/Vol] 106 mg/dL High 74-99 [facility] Comment on above: Order Comment: Speci men Type: BLOOD SPECIMENOrdering Facility: [facility] Address: [address] [place] [address] Result Comment: The [place] Diabetes Association (ADA) provides guidance for cutoff values for fasting glucose and random glucose. The ADA defines fasting as no caloric intake for at least 8 hours. Fasting plasma glucose results between 100 to 125 mg/dL indicate increased risk for diabetes (prediabetes).Fasting plasma glucose results greater than or equal to 126 mg/dL meet the criteria for diagnosis of diabetes. In the absence of unequivocal hyperglycemia, results should be confirmed by repeat testing. In a patient with classic symptoms of hyperglycemia or hyperglycemic crisis, random plasma glucose results greater than or equal to 200 mg/dL meet the criteria for diagnosis of diabetes.Reference: Standards of Medical Care in Diabetes 2016, [place] [employer]. Diabetes Care. 2016.39(Suppl 1). Performed By: #### 2 4323-8 ####[facility] LABCLIA [id number] [place] [address] Potassium [Moles/Vol] 3.7 mmol/L Normal 3.7-5.1 [facility] Comment on above: Order Comment: Speci men Type: BLOOD SPECIMENOrdering Facility: [facility] Address: [address] [place] [address] Performed By: #### 2 4323-8 ####[facility] LABIA [id number] [place] [address] Protein [Mass/Vol] 5.4 g/dL Low 6.3-8.0 [facility] Comment on above: Order Comment: Speci men Type: BLOOD SPECIMENOrdering Facility: [facility] Address: [address] [place] [address] Performed By: #### 2 4323-8 ####[facility] LABCLIA [id number] [place] [address] Sodium [Moles/Vol] 141 mmol/L Normal 136-144 [facility] Comment on above: Order Comment: Speci men Type: BLOOD SPECIMENOrdering Facility: [facility] Address: [address] [place] [address] Performed By: #### 2 4323-8 ####[facility] LABCLIA [id number] [place] [address] Urea nitrogen [Mass/Vol] 38 mg/dL High 9- [facility] Comment on above: Order Comment: Speci men Type: BLOOD SPECIMENOrdering Facility: [facility] Address: [address] [place] [address] Performed By: #### 2 4323-8 ####[facility] LABCLIA [id number] [place] [address] Beverly Valdes-Hannykimberlyon 09-19-20 23 Cortisol [Mass/Vol] 9.8 ug/dL Normal 4.8-19.5 [facility] Comment on above: Order Comment: Speci men Type: BLOOD SPECIMENOrdering Facility: [facility] Address: [address] [place] [address] Result Comment: Prov ided reference range is from 6-10 AM sample collection time.Cortisol Reference Range: 6-10 AM = 4.8-19.5 ug/dL, 4-8 PM = 2.5-11.9 ug/dL Performed By: #### 3 016-3, 2143-6 ####[facility] LABCLIA [id number] [place] [address] [place] HbA1c (Bld)on 09-19-2023 Average glucose Estimated from glycated hemoglobin (Bld) [Mass/Vol] 108 mg/dL Normal [facility] Comment on above: Order Comment: Speci men Type: BLOOD SPECIMENOrdering Facility: [facility] Address: [address] [place] [address] Result Comment: eAG: (Estimated average glucose) is a calculated value from HgbA1c and is patient financial representative of the average blood glucose level in the last 2-3 month period. Performed By: #### 5 5454-3 ####[facility] LABCLIA [id number] [place] [address] [place] HbA1c (Bld) [Mass fraction] 5.4 % Normal 4.3-5.6 [facility] Comment on above: Order Comment: Speci men Type: BLOOD SPECIMENOrdering Facility: [facility] Address: [address] [place] [address] Result Comment: [place] Diabetes Association guidelines indicate that patients with HgbA1c in the range 5.7-6.4% are at increased risk for development of diabetes, and intervention by lifestyle modification may be beneficial. HgbA1c greater or equal to 6.5% is considered diagnostic of diabetes. Performed By: #### 5 5454-3 ####[facility] LABCLIA [id number] [place] [address] [place] TSH SerPl-aCncon 09-19-2023 TSH Qn 2.080 m[IU]/L Normal 0.270-4.200 [facility] Comment on above: Order Comment: Speci men Type: BLOOD SPECIMENOrdering Facility: [facility] Address: [address] [place] [address] Performed By: #### 3 016-3, 2143-6 ####[facility] LABCLIA [id number] [place] [address] [place] CBC W Auto Differential pane l (Bld)on 08-29-2023 Basophils (Bld) [#/Vol] 0.06 10*3/uL Normal <0.11 [facility] Comment on above: Order Comment: Speci men Type: BLOOD SPECIMENOrdering Facility: [facility] Address: [address] [place] [address] Performed By: #### 5 7021-8 ####[facility] LABCLIA [id number] [place] [address] Basophils/100 WBC (Bld) 0.9 % Normal [facility] Comment on above: Order Comment: Speci men Type: BLOOD SPECIMENOrdering Facility: [facility] Address: [address] [place] [address] Performed By: #### 5 7021-8 ####[facility] LABCLIA [id number] [place] [address] Differential cell count method Nom (Bld) Auto Normal [facility] Comment on above: Order Comment: Speci men Type: BLOOD SPECIMENOrdering Facility: [facility] Address: [address] [place] [address] Performed By: #### 5 7021-8 ####[facility] LABCLIA [id number] [place] [address] Eosinophils (Bld) [#/Vol] 0.25 10*3/uL Normal <0.46 [facility] Comment on above: Order Comment: Speci men Type: BLOOD SPECIMENOrdering Facility: [facility] Address: [address] [place] [address] Performed By: #### 5 7021-8 ####[facility] LABCLIA [id number] [place] [address] Eosinophils/100 WBC (Bld) 3.7 % Normal [facility] Comment on above: Order Comment: Speci men Type: BLOOD SPECIMENOrdering Facility: [facility] Address: [address] [place] [address] Performed By: #### 5 7021-8 ####[facility] LABCLIA [id number] [place] [address] Erythrocyte distribution width (RBC) [Ratio] 13.8 % Normal 11.5-15.0 [facility] Comment on above: Order Comment: Speci men Type: BLOOD SPECIMENOrdering Facility: [facility] Address: [address] [place] [address] Performed By: #### 5 7021-8 ####[facility] LABCLIA [id number] [place] [address] Hematocrit (Bld) [Volume fraction] 40.9 % Normal 39.0-51.0 [facility] Comment on above: Order Comment: Speci men Type: BLOOD SPECIMENOrdering Facility: [facility] Address: [address] [place] [address] Performed By: #### 5 7021-8 ####[facility] LABCLIA [id number] [place] [address] Hemoglobin (Bld) [Mass/Vol] 13.6 g/dL Normal 13.0-17.0 [facility] Comment on above: Order Comment: Speci men Type: BLOOD SPECIMENOrdering Facility: [facility] Address: [address] [place] [address] Performed By: #### 5 7021-8 ####[facility] LABCLIA [id number] [place] [address] Immature granulocytes (Bld) [#/Vol] 10*3/uL Normal <0.10 [facility] Comment on above: Order Comment: Speci men Type: BLOOD SPECIMENOrdering Facility: [facility] Address: [address] [place] [address] Performed By: #### 5 7021-8 ####[facility] LABCLIA [id number] [place] [address] Immature granulocytes/100 WBC (Bld) 0.3 % Normal [facility] Comment on above: Order Comment: Speci men Type: BLOOD SPECIMENOrdering Facility: [facility] Address: [address] [place] [address] Performed By: #### 5 7021-8 ####[facility] LABCLIA [id number] [place] [address] Lymphocytes (Bld) [#/Vol] 0.73 10*3/uL Low 1.00-4.00 [facility] Comment on above: Order Comment: Speci men Type: BLOOD SPECIMENOrdering Facility: [facility] Address: [address] [place] [address] Performed By: #### 5 7021-8 ####[facility] LABCLIA [id number] [place] [address] Lymphocytes/100 WBC (Bld) 10.9 % Normal [facility] Comment on above: Order Comment: Speci men Type: BLOOD SPECIMENOrdering Facility: [facility] Address: [address] [place] [address] Performed By: #### 5 7021-8 ####[facility] LABCLIA [id number] [place] [address] MCH (RBC) [Entitic mass] 28.0 pg Normal 26.0-34.0 [facility] Comment on above: Order Comment: Speci men Type: BLOOD SPECIMENOrdering Facility: [facility] Address: [address] [place] [address] Performed By: #### 5 7021-8 ####[facility] LABCLIA [id number] [place] [address] MCHC (RBC) [Mass/Vol] 33.3 g/dL Normal 30.5-36.0 [facility] Comment on above: Order Comment: Speci men Type: BLOOD SPECIMENOrdering Facility: [facility] Address: [address] [place] [address] Performed By: #### 5 7021-8 ####[facility] LABCLIA [id number] [place] [address] MCV (RBC) [Entitic vol] 84.2 fL Normal 80.0-100.0 [facility] Comment on above: Order Comment: Speci men Type: BLOOD SPECIMENOrdering Facility: [facility] Address: [address] [place] [address] Performed By: #### 5 7021-8 ####[facility] LABCLIA [id number] [place] [address] Monocytes (Bld) [#/Vol] 0.36 10*3/uL Normal <0.87 [facility] Comment on above: Order Comment: Speci men Type: BLOOD SPECIMENOrdering Facility: [facility] Address: [address] [place] [address] Performed By: #### 5 7021-8 ####[facility] LABCLIA [id number] [place] [address] Monocytes/100 WBC (Bld) 5.4 % Normal [facility] Comment on above: Order Comment: Speci men Type: BLOOD SPECIMENOrdering Facility: [facility] Address: [address] [place] [address] Performed By: #### 5 7021-8 ####[facility] LABCLIA [id number] [place] [address] Neutrophils (Bld) [#/Vol] 5.28 10*3/uL Normal 1.45-7.50 [facility] Comment on above: Order Comment: Speci men Type: BLOOD SPECIMENOrdering Facility: [facility] Address: [address] [place] [address] Performed By: #### 5 7021-8 ####[facility] LABCLIA [id number] [place] [address] Neutrophils/100 WBC (Bld) 78.8 % Normal [facility] Comment on above: Order Comment: Speci men Type: BLOOD SPECIMENOrdering Facility: [facility] Address: [address] [place] [address] Performed By: #### 5 7021-8 ####[facility] LABCLIA [id number] [place] [address] Nucleated RBC (Bld) [#/Vol] 10*3/uL Normal <0.01 [facility] Comment on above: Order Comment: Speci men Type: BLOOD SPECIMENOrdering Facility: [facility] Address: [address] [place] [address] Performed By: #### 5 7021-8 ####[facility] LABCLIA [id number] [place] [address] Nucleated RBC/100 WBC (Bld) [Ratio] 0.0 /100 WBC Normal [facility] Comment on above: Order Comment: Speci men Type: BLOOD SPECIMENOrdering Facility: [facility] Address: [address] [place] [address] Performed By: #### 5 7021-8 ####[facility] LABCLIA [id number] [place] [address] Platelet mean volume (Bld) [Entitic vol] 9.1 fL Normal 9.0-12.7 [facility] Comment on above: Order Comment: Speci men Type: BLOOD SPECIMENOrdering Facility: [facility] Address: [address] [place] [address] Performed By: #### 5 7021-8 ####[facility] LABCLIA [id number] [place] [address] Platelets (Bld) [#/Vol] 224 10*3/uL Normal 150-400 [facility] Comment on above: Order Comment: Speci men Type: BLOOD SPECIMENOrdering Facility: [facility] Address: [address] [place] [address] Performed By: #### 5 7021-8 ####[facility] LABCLIA [id number] [place] [address] RBC (Bld) [#/Vol] 4.86 10*6/uL Normal 4.20-6.00 [facility] Comment on above: Order Comment: Speci men Type: BLOOD SPECIMENOrdering Facility: [facility] Address: [address] [place] [address] Performed By: #### 5 7021-8 ####[facility] LABCLIA [id number] [place] [address] WBC (Bld) [#/Vol] 6.70 10*3/uL Normal 3.70-11.00 [facility] Comment on above: Order Comment: Speci men Type: BLOOD SPECIMENOrdering Facility: [facility] Address: [address] [place] [address] Performed By: #### 5 7021-8 ####[facility] LABIA [id number] [place] [address] CNOVSPon 08-29-2023 CNOVSP Normal [facility] metabolic 2000 panelon 08-29-2023 Albumin [Mass/Vol] 4.2 g/dL Normal 3.9-4.9 [facility] Comment on above: Order Comment: Speci men Type: BLOOD SPECIMENOrdering Facility: [facility] Address: [address] [place] [address] Performed By: #### 2 4323-8 ####[facility] LABCLIA [id number] [place] [address] ALP [Catalytic activity/Vol] 79 U/L Normal 38-113 [facility] Comment on above: Order Comment: Speci men Type: BLOOD SPECIMENOrdering Facility: [facility] Address: [address] [place] [address] Performed By: #### 2 4323-8 ####[facility] LABCLIA [id number] [place] [address] ALT [Catalytic activity/Vol] 17 U/L Normal 10-54 [facility] Comment on above: Order Comment: Speci men Type: BLOOD SPECIMENOrdering Facility: [facility] Address: [address] [place] [address] Performed By: #### 2 4323-8 ####[facility] LABCLIA [id number] [place] [address] Anion gap [Moles/Vol] 7 mmol/L Low 9-18 [facility] Comment on above: Order Comment: Speci men Type: BLOOD SPECIMENOrdering Facility: [facility] Address: [address] [place] [address] Performed By: #### 2 4323-8 ####[facility] LABCLIA [id number] [place] [address] AST [Catalytic activity/Vol] 28 U/L Normal 14-40 [facility] Comment on above: Order Comment: Speci men Type: BLOOD SPECIMENOrdering Facility: [facility] Address: [address] [place] [address] Performed By: #### 2 4323-8 ####[facility] LABCLIA [id number] [place] [address] Bilirubin [Mass/Vol] 0.8 mg/dL Normal 0.2-1.[address] [facility] Comment on above: Order Comment: Speci men Type: BLOOD SPECIMENOrdering Facility: [facility] Address: [address] [place] [address] Performed By: #### 2 4323-8 ####[facility] LABCLIA [id number] [place] [address] Calcium [Mass/Vol] 9.6 mg/dL Normal 8.5-10.2 [facility] Comment on above: Order Comment: Speci men Type: BLOOD SPECIMENOrdering Facility: [facility] Address: [address] [place] [address] Performed By: #### 2 4323-8 ####[facility] LABCLIA [id number] [place] [address] Chloride [Moles/Vol] 102 mmol/L Normal 97-[address] [facility] Comment on above: Order Comment: Speci men Type: BLOOD SPECIMENOrdering Facility: [facility] Address: [address] [place] [address] Performed By: #### 2 4323-8 ####[facility] LABCLIA [id number] [place] [address] CO2 [Moles/Vol] 28 mmol/L Normal 22-30 [facility] Comment on above: Order Comment: Speci men Type: BLOOD SPECIMENOrdering Facility: [facility] Address: [address] [place] [address] Performed By: #### 2 4323-8 ####[facility] LABCLIA [id number] [place] [address] Creatinine [Mass/Vol] 2.02 mg/dL High 0.73-1.22 [facility] Comment on above: Order Comment: Speci men Type: BLOOD SPECIMENOrdering Facility: [facility] Address: [address] [place] [address] Performed By: #### 2 4323-8 ####[facility] LABCLIA [id number] [place] [address] Creatinine and Glomerular filtration rate.predicted panel (S/P/Bld) 32 mL/min/1.73m??? Low >=60 [facility] Comment on above: Order Comment: Speci men Type: BLOOD SPECIMENOrdering Facility: [facility] Address: [address] [place] [address] Result Comment: Viviana mated Glomerular Filtration Rate (eGFR) is calculated using the 2020 CKD-EPI creatinine equation. This equation utilizes serum creatinine, sex, and age as parameters. The creatinine assay has traceable calibration to isotope dilution-mass spectrometry. Refer to KDIGO guidelines for clinical interpretation. In patients with unstable renal function, e.g. those with acute kidney injury, the eGFR may not accurately reflect actual GFR. Performed By: #### 2 4323-8 ####[facility] LABIA [id number] [place] [address] Glucose [Mass/Vol] 116 mg/dL High 74-99 [facility] Comment on above: Order Comment: Speci oralia Type: BLOOD SPECIMENOrdering Facility: [facility] Address: [address] [place] [address] Result Comment: The [place] Diabetes Association (ADA) provides guidance for cutoff values for fasting glucose and random glucose. The ADA defines fasting as no caloric intake for at least 8 hours. Fasting plasma glucose results between 100 to 125 mg/dL indicate increased risk for diabetes (prediabetes).Fasting plasma glucose results greater than or equal to 126 mg/dL meet the criteria for diagnosis of diabetes. In the absence of unequivocal hyperglycemia, results should be confirmed by repeat testing. In a patient with classic symptoms of hyperglycemia or hyperglycemic crisis, random plasma glucose results greater than or equal to 200 mg/dL meet the criteria for diagnosis of diabetes.Reference: Standards of Medical Care in Diabetes 2016, [place] [employer]. Diabetes Care. 2016.39(Suppl 1). Performed By: #### 2 4323-8 ####[facility] LABCLIA [id number] [place] [address] Potassium [Moles/Vol] 4.1 mmol/L Normal 3.7-5.1 [facility] Comment on above: Order Comment: Speci men Type: BLOOD SPECIMENOrdering Facility: [facility] Address: [address] [place] [address] Performed By: #### 2 4323-8 ####[facility] LABCLIA [id number] [place] [address] Protein [Mass/Vol] 6.1 g/dL Low 6.3-8.0 [facility] Comment on above: Order Comment: Speci men Type: BLOOD SPECIMENOrdering Facility: [facility] Address: [address] [place] [address] Performed By: #### 2 4323-8 ####[facility] LABCLIA [id number] [place] [address] Sodium [Moles/Vol] 137 mmol/L Normal 136-144 [facility] Comment on above: Order Comment: Speci men Type: BLOOD SPECIMENOrdering Facility: [facility] Address: [address] [place] [address] Performed By: #### 2 4323-8 ####[facility] LABCLIA [id number] [place] [address] Urea nitrogen [Mass/Vol] 23 mg/dL Normal 9-24 [facility] Comment on above: Order Comment: Speci men Type: BLOOD SPECIMENOrdering Facility: [facility] Address: [address] [place] [address] Performed By: #### 2 4323-8 ####[facility] LABIA [id number] [place] [address] Cortis SerPl-Ricaon 08-29-20 23 Cortisol [Mass/Vol] 7.9 ug/dL Normal 4.8-19.5 [facility] Comment on above: Order Comment: Speci men Type: BLOOD SPECIMENOrdering Facility: [facility] Address: [address] [place] [address] Result Comment: Prov ided reference range is from 6-10 AM sample collection time.Cortisol Reference Range: 6-10 AM = 4.8-19.5 ug/dL, 4-8 PM = 2.5-11.9 ug/dL Performed By: #### 3 016-3, 2143-6 ####[facility] LABCLIA [id number] [place] [address] [place] HbA1c (Bld)on 08-29-2023 Average glucose Estimated from glycated hemoglobin (Bld) [Mass/Vol] 100 mg/dL Normal [facility] Comment on above: Order Comment: Vero barton Type: BLOOD SPECIMENOrdering Facility: [facility] Address: [address] [place] [address] Result Comment: eAG: (Estimated average glucose) is a calculated value from HgbA1c and is patient financial representative of the average blood glucose level in the last 2-3 month period. Performed By: #### 5 5454-3 ####[facility] LABIA [id number] [address] [place] [facility] HbA1c (Bld) [Mass fraction] 5.1 % Normal 4.3-5.6 [facility] Comment on above: Order Comment: Vero barton Type: BLOOD SPECIMENOrdering Facility: [facility] Address: [address] [place] [address] Result Comment: [place] Diabetes Association guidelines indicate that patients with HgbA1c in the range 5.7-6.4% are at increased risk for development of diabetes, and intervention by lifestyle modification may be beneficial. HgbA1c greater or equal to 6.5% is considered diagnostic of diabetes. Performed By: #### 5 5454-3 ####[facility] LABIA [id number] [place] [address] [place] TSH SerPl-aCncon 08-29-2023 TSH Qn 3.500 m[IU]/L Normal 0.270-4.200 [facility] Comment on above: Order Comment: Vero barton Type: BLOOD SPECIMENOrdering Facility: [facility] Address: [address] [place] [address] Performed By: #### 3 016-3, 2143-6 ####[facility] LABCLIA [id number] MALLORYMarisabel [facility] [id number], [place] [address] [place] CT ABD/PEL W IVCONon 023 CT ABD/PEL W IVCON Normal [facility] CT CHEST W IVCONon 3 CT CHEST W IVCON Normal [facility] Visiton 08-20-2023 Follow-up visit [id number] Juan Jose Austin 1940 M Date Provider Department Center 08/20/2023 JIMBO ROBERTSON [facility] Family History Problem Relation Age of Onset Heart failure Mother Family Status - Relation Status Age at Mother Level of Service:78264 MS PHYS/QHP TELEPHONE EVALUATION 11-20 MIN Normal [facility] CBC W Auto Differential pane l (Bld)on 08-08-2023 Basophils (Bld) [#/Vol] 0.05 10*3/uL Normal <0.11 [facility] Comment on above: Order Comment: Speci men Type: BLOOD SPECIMENOrdering Facility: [facility] Address: [address] [place] [address] Performed By: #### 5 7021-8 ####[facility] LABCLIA [id number] [place] [address] Basophils/100 WBC (Bld) 0.8 % Normal [facility] Comment on above: Order Comment: Speci men Type: BLOOD SPECIMENOrdering Facility: [facility] Address: [address] [place] [address] Performed By: #### 5 7021-8 ####[facility] LABCLIA [id number] [place] [address] Differential cell count method Nom (Bld) Auto Normal [facility] Comment on above: Order Comment: Speci men Type: BLOOD SPECIMENOrdering Facility: [facility] Address: [address] [place] [address] Performed By: #### 5 7021-8 ####[facility] LABCLIA [id number] [place] [address] Eosinophils (Bld) [#/Vol] 0.23 10*3/uL Normal <0.46 [facility] Comment on above: Order Comment: Speci men Type: BLOOD SPECIMENOrdering Facility: [facility] Address: [address] [place] [address] Performed By: #### 5 7021-8 ####[facility] LABCLIA [id number] [place] [address] Eosinophils/100 WBC (Bld) 3.6 % Normal [facility] Comment on above: Order Comment: Speci men Type: BLOOD SPECIMENOrdering Facility: [facility] Address: [address] [place] [address] Performed By: #### 5 7021-8 ####[facility] LABCLIA [id number] [place] [address] Erythrocyte distribution width (RBC) [Ratio] 14.0 % Normal 11.5-15.0 [facility] Comment on above: Order Comment: Speci men Type: BLOOD SPECIMENOrdering Facility: [facility] Address: [address] [place] [address] Performed By: #### 5 7021-8 ####[facility] LABCLIA [id number] [place] [address] Hematocrit (Bld) [Volume fraction] 39.4 % Normal 39.0-51.0 [facility] Comment on above: Order Comment: Speci men Type: BLOOD SPECIMENOrdering Facility: [facility] Address: [address] [place] [address] Performed By: #### 5 7021-8 ####[facility] LABCLIA [id number] [place] [address] Hemoglobin (Bld) [Mass/Vol] 13.4 g/dL Normal 13.0-17.0 [facility] Comment on above: Order Comment: Speci men Type: BLOOD SPECIMENOrdering Facility: [facility] Address: [address] [place] [address] Performed By: #### 5 7021-8 ####[facility] LABCLIA [id number] [place] [address] Immature granulocytes (Bld) [#/Vol] 10*3/uL Normal <0.10 [facility] Comment on above: Order Comment: Speci men Type: BLOOD SPECIMENOrdering Facility: [facility] Address: [address] [place] [address] Performed By: #### 5 7021-8 ####[facility] LABCLIA [id number] [place] [address] Immature granulocytes/100 WBC (Bld) 0.3 % Normal [facility] Comment on above: Order Comment: Speci men Type: BLOOD SPECIMENOrdering Facility: [facility] Address: [address] [place] [address] Performed By: #### 5 7021-8 ####[facility] LABCLIA [id number] [place] [address] Lymphocytes (Bld) [#/Vol] 0.73 10*3/uL Low 1.00-4.00 [facility] Comment on above: Order Comment: Speci men Type: BLOOD SPECIMENOrdering Facility: [facility] Address: [address] [place] [address] Performed By: #### 5 7021-8 ####[facility] LABCLIA [id number] [place] [address] Lymphocytes/100 WBC (Bld) 11.5 % Normal [facility] Comment on above: Order Comment: Speci men Type: BLOOD SPECIMENOrdering Facility: [facility] Address: [address] [place] [address] Performed By: #### 5 7021-8 ####[facility] LABCLIA [id number] [place] [address] MCH (RBC) [Entitic mass] 28.5 pg Normal 26.0-34.0 [facility] Comment on above: Order Comment: Speci men Type: BLOOD SPECIMENOrdering Facility: [facility] Address: [address] [place] [address] Performed By: #### 5 7021-8 ####[facility] LABCLIA [id number] [place] [address] MCHC (RBC) [Mass/Vol] 34.0 g/dL Normal 30.5-36.0 [facility] Comment on above: Order Comment: Speci men Type: BLOOD SPECIMENOrdering Facility: [facility] Address: [address] [place] [address] Performed By: #### 5 7021-8 ####[facility] LABIA [id number] [place] [address] MCV (RBC) [Entitic vol] 83.7 fL Normal 80.0-100.0 [facility] Comment on above: Order Comment: Speci men Type: BLOOD SPECIMENOrdering Facility: [facility] Address: [address] [place] [address] Performed By: #### 5 7021-8 ####[facility] LABIA [id number] [place] [address] Monocytes (Bld) [#/Vol] 0.63 10*3/uL Normal <0.87 [facility] Comment on above: Order Comment: Speci men Type: BLOOD SPECIMENOrdering Facility: [facility] Address: [address] [place] [address] Performed By: #### 5 7021-8 ####[facility] LABIA [id number] [place] [address] Monocytes/100 WBC (Bld) 9.9 % Normal [facility] Comment on above: Order Comment: Speci men Type: BLOOD SPECIMENOrdering Facility: [facility] Address: [address] [place] [address] Performed By: #### 5 7021-8 ####[facility] LABCLIA [id number] [place] [address] Neutrophils (Bld) [#/Vol] 4.68 10*3/uL Normal 1.45-7.50 [facility] Comment on above: Order Comment: Speci men Type: BLOOD SPECIMENOrdering Facility: [facility] Address: [address] [place] [address] Performed By: #### 5 7021-8 ####[facility] LABCLIA [id number] [place] [address] Neutrophils/100 WBC (Bld) 73.9 % Normal [facility] Comment on above: Order Comment: Speci men Type: BLOOD SPECIMENOrdering Facility: [facility] Address: [address] [place] [address] Performed By: #### 5 7021-8 ####[facility] LABCLIA [id number] [place] [address] Nucleated RBC (Bld) [#/Vol] 10*3/uL Normal <0.01 [facility] Comment on above: Order Comment: Speci men Type: BLOOD SPECIMENOrdering Facility: [facility] Address: [address] [place] [address] Performed By: #### 5 7021-8 ####[facility] LABCLIA [id number] [place] [address] Nucleated RBC/100 WBC (Bld) [Ratio] 0.0 /100 WBC Normal [facility] Comment on above: Order Comment: Speci men Type: BLOOD SPECIMENOrdering Facility: [facility] Address: [address] [place] [address] Performed By: #### 5 7021-8 ####[facility] LABIA [id number] [place] [address] Platelet mean volume (Bld) [Entitic vol] 9.3 fL Normal 9.0-12.7 [facility] Comment on above: Order Comment: Speci men Type: BLOOD SPECIMENOrdering Facility: [facility] Address: [address] [place] [address] Performed By: #### 5 7021-8 ####[facility] LABCLIA [id number] [place] [address] Platelets (Bld) [#/Vol] 200 10*3/uL Normal 150-400 [facility] Comment on above: Order Comment: Speci men Type: BLOOD SPECIMENOrdering Facility: [facility] Address: [address] [place] [address] Performed By: #### 5 7021-8 ####[facility] LABCLIA [id number] [place] [address] RBC (Bld) [#/Vol] 4.71 10*6/uL Normal 4.20-6.00 [facility] Comment on above: Order Comment: Speci men Type: BLOOD SPECIMENOrdering Facility: [facility] Address: [address] [place] [address] Performed By: #### 5 7021-8 ####[facility] LABCLIA [id number] [place] [address] WBC (Bld) [#/Vol] 6.34 10*3/uL Normal 3.70-11.00 [facility] Comment on above: Order Comment: Speci men Type: BLOOD SPECIMENOrdering Facility: [facility] Address: [address] [place] [address] Performed By: #### 5 7021-8 ####[facility] LABCLIA [id number] [place] [address] CNPNon 08-08-2023 CNPN Normal [facility] Comprehensive metabolic 2000 panelon 08-08-2023 Albumin [Mass/Vol] 4.0 g/dL Normal 3.9-4.9 [facility] Comment on above: Order Comment: Speci men Type: BLOOD SPECIMENOrdering Facility: [facility] Address: [address] [place] [address] Performed By: #### 2 4323-8 ####[facility] LABCLIA [id number] [place] [address] ALP [Catalytic activity/Vol] 83 U/L Normal 38-113 [facility] Comment on above: Order Comment: Speci men Type: BLOOD SPECIMENOrdering Facility: [facility] Address: [address] [place] [address] Performed By: #### 2 4323-8 ####[facility] LABCLIA [id number] [place] [address] ALT [Catalytic activity/Vol] 14 U/L Normal 10-54 [facility] Comment on above: Order Comment: Speci men Type: BLOOD SPECIMENOrdering Facility: [facility] Address: [address] [place] [address] Performed By: #### 2 4323-8 ####[facility] LABCLIA [id number] [place] [address] Anion gap [Moles/Vol] 6 mmol/L Low 9-18 [facility] Comment on above: Order Comment: Speci men Type: BLOOD SPECIMENOrdering Facility: [facility] Address: [address] [place] [address] Performed By: #### 2 4323-8 ####[facility] LABCLIA [id number] [place] [address] AST [Catalytic activity/Vol] 21 U/L Normal 14-40 [facility] Comment on above: Order Comment: Speci men Type: BLOOD SPECIMENOrdering Facility: [facility] Address: [address] [place] [address] Performed By: #### 2 4323-8 ####[facility] LABCLIA [id number] [place] [address] Bilirubin [Mass/Vol] 0.7 mg/dL Normal 0.2-1.[address] [facility] Comment on above: Order Comment: Speci men Type: BLOOD SPECIMENOrdering Facility: [facility] Address: [address] [place] [address] Performed By: #### 2 4323-8 ####[facility] LABCLIA [id number] [place] [address] Calcium [Mass/Vol] 8.7 mg/dL Normal 8.5-10.2 [facility] Comment on above: Order Comment: Speci men Type: BLOOD SPECIMENOrdering Facility: [facility] Address: [address] [place] [address] Performed By: #### 2 4323-8 ####[facility] LABCLIA [id number] [place] [address] Chloride [Moles/Vol] 106 mmol/L High 97-[address] [facility] Comment on above: Order Comment: Speci men Type: BLOOD SPECIMENOrdering Facility: [facility] Address: [address] [place] [address] Performed By: #### 2 4323-8 ####[facility] LABCLIA [id number] [place] [address] CO2 [Moles/Vol] 25 mmol/L Normal 22-30 [facility] Comment on above: Order Comment: Speci men Type: BLOOD SPECIMENOrdering Facility: [facility] Address: [address] [place] [address] Performed By: #### 2 4323-8 ####[facility] LABCLIA [id number] [place] [address] Creatinine [Mass/Vol] 1.97 mg/dL High 0.73-1.22 [facility] Comment on above: Order Comment: Speci men Type: BLOOD SPECIMENOrdering Facility: [facility] Address: [address] [place] [address] Performed By: #### 2 4323-8 ####[facility] LABCLIA [id number] [place] [address] Creatinine and Glomerular filtration rate.predicted panel (S/P/Bld) 33 mL/min/1.73m??? Low >=60 [facility] Comment on above: Order Comment: Vero barton Type: BLOOD SPECIMENOrdering Facility: [facility] Address: [place] [address] Result Comment: Viviana mated Glomerular Filtration Rate (eGFR) is calculated using the 2020 CKD-EPI creatinine equation. This equation utilizes serum creatinine, sex, and age as parameters. The creatinine assay has traceable calibration to isotope dilution-mass spectrometry. Refer to KDIGO guidelines for clinical interpretation. In patients with unstable renal function, e.g. those with acute kidney injury, the eGFR may not accurately reflect actual GFR. Performed By: #### 2 4323-8 ####[facility] LABCLIA [id number] [place] [address] Glucose [Mass/Vol] 105 mg/dL High 74-99 [facility] Comment on above: Order Comment: Vero barton Type: BLOOD SPECIMENOrdering Facility: [facility] Address: [place] [address] Result Comment: The [place] Diabetes Association (ADA) provides guidance for cutoff values for fasting glucose and random glucose. The ADA defines fasting as no caloric intake for at least 8 hours. Fasting plasma glucose results between 100 to 125 mg/dL indicate increased risk for diabetes (prediabetes).Fasting plasma glucose results greater than or equal to 126 mg/dL meet the criteria for diagnosis of diabetes. In the absence of unequivocal hyperglycemia, results should be confirmed by repeat testing. In a patient with classic symptoms of hyperglycemia or hyperglycemic crisis, random plasma glucose results greater than or equal to 200 mg/dL meet the criteria for diagnosis of diabetes.Reference: Standards of Medical Care in Diabetes 2016, [place] [employer] Association. Diabetes Care. 2016.39(Suppl 1). Performed By: #### 2 4323-8 ####[facility] LABCLIA [id number] [place] [address] Potassium [Moles/Vol] 4.1 mmol/L Normal 3.7-5.1 [facility] Comment on above: Order Comment: Vero barton Type: BLOOD SPECIMENOrdering Facility: [facility] Address: [place] [address] Performed By: #### 2 4323-8 ####[facility] LABCLIA [id number] [place] [address] Protein [Mass/Vol] 6.0 g/dL Low 6.3-8.0 [facility] Comment on above: Order Comment: Speci men Type: BLOOD SPECIMENOrdering Facility: [facility] Address: [address] [place] [address] Performed By: #### 2 4323-8 ####[facility] LABCLIA [id number] [place] [address] Sodium [Moles/Vol] 137 mmol/L Normal 136-144 [facility] Comment on above: Order Comment: Speci men Type: BLOOD SPECIMENOrdering Facility: [facility] Address: [address] [place] [address] Performed By: #### 2 4323-8 ####[facility] LABCLIA [id number] [place] [address] Urea nitrogen [Mass/Vol] 23 mg/dL Normal 9-24 [facility] Comment on above: Order Comment: Speci men Type: BLOOD SPECIMENOrdering Facility: [facility] Address: [address] [place] [address] Performed By: #### 2 4323-8 ####[facility] LABCLIA [id number] [place] [address] Cortshaye Koehler 08-08-20 23 Cortisol [Mass/Vol] 11.0 ug/dL Normal 4.8-19.5 [facility] Comment on above: Order Comment: Speci men Type: BLOOD SPECIMENOrdering Facility: [facility] Address: [address] [place] [address] Result Comment: Prov ided reference range is from 6-10 AM sample collection time.Cortisol Reference Range: 6-10 AM = 4.8-19.5 ug/dL, 4-8 PM = 2.5-11.9 ug/dL Performed By: #### 3 016-3, 2143-03 ####[facility] LABCLIA [id number] [address] [place] HbA1c (Bld)on 08-08-2023 Average glucose Estimated from glycated hemoglobin (Bld) [Mass/Vol] 97 mg/dL Normal [facility] Comment on above: Order Comment: Speci men Type: BLOOD SPECIMENOrdering Facility: [facility] Address: [address] [place] [address] Result Comment: eAG: (Estimated average glucose) is a calculated value from HgbA1c and is patient financial representative of the average blood glucose level in the last 2-3 month period. Performed By: #### 5 5454-3 ####[facility] LABIA [id number] [address] HbA1c (Bld) [Mass fraction] 5.0 % Normal 4.3-5.6 [facility] Comment on above: Order Comment: Vero batron Type: BLOOD SPECIMENOrdering Facility: [facility] Address: [address] [place] [address] Result Comment: Amer [place] Diabetes Association guidelines indicate that patients with HgbA1c in the range 5.7-6.4% are at increased risk for development of diabetes, and intervention by lifestyle modification may be beneficial. HgbA1c greater or equal to 6.5% is considered diagnostic of diabetes. Performed By: #### 5 5454-3 ####[facility] LABIA [id number] [address] [place] TSH SerPl-aCncon 08-08-2023 TSH Qn 1.510 m[IU]/L Normal 0.270-4.200 [facility] Comment on above: Order Comment: Vero [facility] Type: BLOOD SPECIMENOrdering Facility: [facility] Address: [address] [place] [address] Performed By: #### 3 016-3, 2143-03 ####[facility] LABIA [id number] [place] [address] [place] CBC W Auto Differential pane l (Bld)on 07-18-2023 Basophils (Bld) [#/Vol] 0.07 10*3/uL Normal <0.11 [facility] Comment on above: Order Comment: Speci men Type: BLOOD SPECIMENOrdering Facility: [facility] Address: [address] [place] [address] Performed By: #### 5 7021-8 ####[facility] LABCLIA [id number] [place] [address] Basophils/100 WBC (Bld) 1.0 % Normal [facility] Comment on above: Order Comment: Speci men Type: BLOOD SPECIMENOrdering Facility: [facility] Address: [address] [place] [address] Performed By: #### 5 7021-8 ####[facility] LABCLIA [id number] [place] [address] Differential cell count method Nom (Bld) Auto Normal [facility] Comment on above: Order Comment: Speci men Type: BLOOD SPECIMENOrdering Facility: [facility] Address: [address] [place] [address] Performed By: #### 5 7021-8 ####[facility] LABCLIA [id number] [place] [address] Eosinophils (Bld) [#/Vol] 0.23 10*3/uL Normal <0.46 [facility] Comment on above: Order Comment: Speci men Type: BLOOD SPECIMENOrdering Facility: [facility] Address: [address] [place] [address] Performed By: #### 5 7021-8 ####[facility] LABCLIA [id number] [place] [address] Eosinophils/100 WBC (Bld) 3.1 % Normal [facility] Comment on above: Order Comment: Speci men Type: BLOOD SPECIMENOrdering Facility: [facility] Address: [address] [place] [address] Performed By: #### 5 7021-8 ####[facility] LABCLIA [id number] [place] [address] Erythrocyte distribution width (RBC) [Ratio] 13.9 % Normal 11.5-15.0 [facility] Comment on above: Order Comment: Speci men Type: BLOOD SPECIMENOrdering Facility: [facility] Address: [address] [place] [address] Performed By: #### 5 7021-8 ####[facility] LABCLIA [id number] [place] [address] Hematocrit (Bld) [Volume fraction] 40.2 % Normal 39.0-51.0 [facility] Comment on above: Order Comment: Speci men Type: BLOOD SPECIMENOrdering Facility: [facility] Address: [address] [place] [address] Performed By: #### 5 7021-8 ####[facility] LABCLIA [id number] [place] [address] Hemoglobin (Bld) [Mass/Vol] 13.4 g/dL Normal 13.0-17.0 [facility] Comment on above: Order Comment: Speci men Type: BLOOD SPECIMENOrdering Facility: [facility] Address: [address] [place] [address] Performed By: #### 5 7021-8 ####[facility] LABCLIA [id number] [place] [address] Immature granulocytes (Bld) [#/Vol] 10*3/uL Normal <0.10 [facility] Comment on above: Order Comment: Speci men Type: BLOOD SPECIMENOrdering Facility: [facility] Address: [address] [place] [address] Performed By: #### 5 7021-8 ####[facility] LABCLIA [id number] [place] [address] Immature granulocytes/100 WBC (Bld) 0.3 % Normal [facility] Comment on above: Order Comment: Speci men Type: BLOOD SPECIMENOrdering Facility: [facility] Address: [address] [place] [address] Performed By: #### 5 7021-8 ####[facility] LABCLIA [id number] [place] [address] Lymphocytes (Bld) [#/Vol] 0.77 10*3/uL Low 1.00-4.00 [facility] Comment on above: Order Comment: Speci men Type: BLOOD SPECIMENOrdering Facility: [facility] Address: [address] [place] [address] Performed By: #### 5 7021-8 ####[facility] LABCLIA [id number] [place] [address] Lymphocytes/100 WBC (Bld) 10.5 % Normal [facility] Comment on above: Order Comment: Speci men Type: BLOOD SPECIMENOrdering Facility: [facility] Address: [address] [place] [address] Performed By: #### 5 7021-8 ####[facility] LABCLIA [id number] [place] [address] MCH (RBC) [Entitic mass] 28.2 pg Normal 26.0-34.0 [facility] Comment on above: Order Comment: Speci men Type: BLOOD SPECIMENOrdering Facility: [facility] Address: [address] [place] [address] Performed By: #### 5 7021-8 ####[facility] LABCLIA [id number] [place] [address] MCHC (RBC) [Mass/Vol] 33.3 g/dL Normal 30.5-36.0 [facility] Comment on above: Order Comment: Speci men Type: BLOOD SPECIMENOrdering Facility: [facility] Address: [address] [place] [address] Performed By: #### 5 7021-8 ####[facility] LABCLIA [id number] [place] [address] MCV (RBC) [Entitic vol] 84.5 fL Normal 80.0-100.0 [facility] Comment on above: Order Comment: Speci men Type: BLOOD SPECIMENOrdering Facility: [facility] Address: [address] [place] [address] Performed By: #### 5 7021-8 ####[facility] LABCLIA [id number] [place] [address] Monocytes (Bld) [#/Vol] 0.47 10*3/uL Normal <0.87 [facility] Comment on above: Order Comment: Speci men Type: BLOOD SPECIMENOrdering Facility: [facility] Address: [address] [place] [address] Performed By: #### 5 7021-8 ####[facility] LABIA [id number] [place] [address] Monocytes/100 WBC (Bld) 6.4 % Normal [facility] Comment on above: Order Comment: Speci men Type: BLOOD SPECIMENOrdering Facility: [facility] Address: [address] [place] [address] Performed By: #### 5 7021-8 ####[facility] LABCLIA [id number] [place] [address] Neutrophils (Bld) [#/Vol] 5.80 10*3/uL Normal 1.45-7.50 [facility] Comment on above: Order Comment: Speci men Type: BLOOD SPECIMENOrdering Facility: [facility] Address: [address] [place] [address] Performed By: #### 5 7021-8 ####[facility] LABIA [id number] [place] [address] Neutrophils/100 WBC (Bld) 78.7 % Normal [facility] Comment on above: Order Comment: Speci men Type: BLOOD SPECIMENOrdering Facility: [facility] Address: [address] [place] [address] Performed By: #### 5 7021-8 ####[facility] LABCLIA [id number] [place] [address] Nucleated RBC (Bld) [#/Vol] 10*3/uL Normal <0.01 [facility] Comment on above: Order Comment: Speci men Type: BLOOD SPECIMENOrdering Facility: [facility] Address: [address] [place] [address] Performed By: #### 5 7021-8 ####[facility] LABCLIA [id number] [place] [address] Nucleated RBC/100 WBC (Bld) [Ratio] 0.0 /100 WBC Normal [facility] Comment on above: Order Comment: Speci men Type: BLOOD SPECIMENOrdering Facility: [facility] Address: [address] [place] [address] Performed By: #### 5 7021-8 ####[facility] LABCLIA [id number] [place] [address] Platelet mean volume (Bld) [Entitic vol] 9.1 fL Normal 9.0-12.7 [facility] Comment on above: Order Comment: Speci men Type: BLOOD SPECIMENOrdering Facility: [facility] Address: [address] [place] [address] Performed By: #### 5 7021-8 ####[facility] LABCLIA [id number] [place] [address] Platelets (Bld) [#/Vol] 179 10*3/uL Normal 150-400 [facility] Comment on above: Order Comment: Speci men Type: BLOOD SPECIMENOrdering Facility: [facility] Address: [address] [place] [address] Performed By: #### 5 7021-8 ####[facility] LABCLIA [id number] [place] [address] RBC (Bld) [#/Vol] 4.76 10*6/uL Normal 4.20-6.00 [facility] Comment on above: Order Comment: Speci men Type: BLOOD SPECIMENOrdering Facility: [facility] Address: [address] [place] [address] Performed By: #### 5 7021-8 ####[facility] LABIA [id number] [place] [address] WBC (Bld) [#/Vol] 7.36 10*3/uL Normal 3.70-11.00 [facility] Comment on above: Order Comment: Speci men Type: BLOOD SPECIMENOrdering Facility: [facility] Address: [address] [place] [address] Performed By: #### 5 7021-8 ####[facility] LABIA [id number] [place] [address] CNOVSPon 07-18-2023 CNOVSP Normal [facility] metabolic 2000 panelon 07-18-2023 Albumin [Mass/Vol] 4.3 g/dL Normal 3.9-4.9 [facility] Comment on above: Order Comment: Speci men Type: BLOOD SPECIMENOrdering Facility: [facility] Address: [address] [place] [address] Performed By: #### 2 4323-8 ####[facility] LABIA [id number] [place] [address] ALP [Catalytic activity/Vol] 79 U/L Normal 38-113 [facility] Comment on above: Order Comment: Speci men Type: BLOOD SPECIMENOrdering Facility: [facility] Address: [address] [place] [address] Performed By: #### 2 4323-8 ####[facility] LABIA [id number] [place] [address] ALT [Catalytic activity/Vol] 17 U/L Normal 10-54 [facility] Comment on above: Order Comment: Speci men Type: BLOOD SPECIMENOrdering Facility: [facility] Address: [address] [place] [address] Performed By: #### 2 4323-8 ####[facility] LABCLIA [id number] [place] [address] Anion gap [Moles/Vol] 6 mmol/L Low 9-18 [facility] Comment on above: Order Comment: Speci men Type: BLOOD SPECIMENOrdering Facility: [facility] Address: [address] [place] [address] Performed By: #### 2 4323-8 ####[facility] LABCLIA [id number] [place] [address] AST [Catalytic activity/Vol] 24 U/L Normal 14-40 [facility] Comment on above: Order Comment: Speci men Type: BLOOD SPECIMENOrdering Facility: [facility] Address: [address] [place] [address] Performed By: #### 2 4323-8 ####[facility] LABCLIA [id number] [place] [address] Bilirubin [Mass/Vol] 0.5 mg/dL Normal 0.2-1.[address] [facility] Comment on above: Order Comment: Speci men Type: BLOOD SPECIMENOrdering Facility: [facility] Address: [address] [place] [address] Performed By: #### 2 4323-8 ####[facility] LABCLIA [id number] [place] [address] Calcium [Mass/Vol] 9.1 mg/dL Normal 8.5-10.2 [facility] Comment on above: Order Comment: Speci men Type: BLOOD SPECIMENOrdering Facility: [facility] Address: [address] [place] [address] Performed By: #### 2 4323-8 ####[facility] LABCLIA [id number] [place] [address] Chloride [Moles/Vol] 107 mmol/L High 97-[address] [facility] Comment on above: Order Comment: Speci men Type: BLOOD SPECIMENOrdering Facility: [facility] Address: [address] [place] [address] Performed By: #### 2 4323-8 ####[facility] LABCLIA [id number] [place] [address] CO2 [Moles/Vol] 27 mmol/L Normal 22-30 [facility] Comment on above: Order Comment: Speci men Type: BLOOD SPECIMENOrdering Facility: [facility] Address: [address] [place] [address] Performed By: #### 2 4323-8 ####[facility] LABCLIA [id number] [place] [address] Creatinine [Mass/Vol] 2.03 mg/dL High 0.73-1.22 [facility] Comment on above: Order Comment: Speci men Type: BLOOD SPECIMENOrdering Facility: [facility] Address: [address] [place] [address] Performed By: #### 2 4323-8 ####[facility] LABCLIA [id number] [place] [address] Creatinine and Glomerular filtration rate.predicted panel (S/P/Bld) 32 mL/min/1.73m??? Low >=60 [facility] Comment on above: Order Comment: Speci men Type: BLOOD SPECIMENOrdering Facility: [facility] Address: [address] [place] [address] Result Comment: Viviana mated Glomerular Filtration Rate (eGFR) is calculated using the 2020 CKD-EPI creatinine equation. This equation utilizes serum creatinine, sex, and age as parameters. The creatinine assay has traceable calibration to isotope dilution-mass spectrometry. Refer to KDIGO guidelines for clinical interpretation. In patients with unstable renal function, e.g. those with acute kidney injury, the eGFR may not accurately reflect actual GFR. Performed By: #### 2 4323-8 ####[facility] LABCLIA [id number] [place] [address] Glucose [Mass/Vol] 104 mg/dL High 74-99 [facility] Comment on above: Order Comment: Speci men Type: BLOOD SPECIMENOrdering Facility: [facility] Address: [address] [place] [address] Result Comment: The [place] Diabetes Association (ADA) provides guidance for cutoff values for fasting glucose and random glucose. The ADA defines fasting as no caloric intake for at least 8 hours. Fasting plasma glucose results between 100 to 125 mg/dL indicate increased risk for diabetes (prediabetes).Fasting plasma glucose results greater than or equal to 126 mg/dL meet the criteria for diagnosis of diabetes. In the absence of unequivocal hyperglycemia, results should be confirmed by repeat testing. In a patient with classic symptoms of hyperglycemia or hyperglycemic crisis, random plasma glucose results greater than or equal to 200 mg/dL meet the criteria for diagnosis of diabetes.Reference: Standards of Medical Care in Diabetes 2016, [place] Diabetes Association. Diabetes Care. 2016.39(Suppl 1). Performed By: #### 2 4323-8 ####[facility] LABCLIA [id number] [place] [address] Potassium [Moles/Vol] 4.1 mmol/L Normal 3.7-5.1 [facility] Comment on above: Order Comment: Speci men Type: BLOOD SPECIMENOrdering Facility: [facility] Address: [address] [place] [address] Performed By: #### 2 4323-8 ####[facility] LABCLIA [id number] [place] [address] Protein [Mass/Vol] 6.1 g/dL Low 6.3-8.0 [facility] Comment on above: Order Comment: Speci men Type: BLOOD SPECIMENOrdering Facility: [facility] Address: [address] [place] [address] Performed By: #### 2 4323-8 ####[facility] LABCLIA [id number] [place] [address] Sodium [Moles/Vol] 140 mmol/L Normal 136-144 [facility] Comment on above: Order Comment: Speci men Type: BLOOD SPECIMENOrdering Facility: [facility] Address: [address] [place] [address] Performed By: #### 2 4323-8 ####[facility] LABCLIA [id number] [place] [address] Urea nitrogen [Mass/Vol] 34 mg/dL High 9-24 [facility] Comment on above: Order Comment: Speci men Type: BLOOD SPECIMENOrdering Facility: [facility] Address: [address] [place] [address] Performed By: #### 2 4323-8 ####[facility] LABCLIA [id number] [place] [address] Cortshaye Keisha-Ricaon 07-18-20 23 Cortisol [Mass/Vol] 10.2 ug/dL Normal 4.8-19.5 [facility] Comment on above: Order Comment: Speci men Type: BLOOD SPECIMENOrdering Facility: [facility] Address: [address] [place] [address] Result Comment: Prov ided reference range is from 6-10 AM sample collection time.Cortisol Reference Range: 6-10 AM = 4.8-19.5 ug/dL, 4-8 PM = 2.5-11.9 ug/dL Performed By: #### 3 016-3, 2143-6 ####[facility] LABCLIA [id number] [address] [facility] HbA1c (Bld)on 07-18-2023 Average glucose Estimated from glycated hemoglobin (Bld) [Mass/Vol] 103 mg/dL Normal [facility] Comment on above: Order Comment: Speci men Type: BLOOD SPECIMENOrdering Facility: [facility] Address: [address] [place] [address] Result Comment: eAG: (Estimated average glucose) is a calculated value from HgbA1c and is patient financial representative of the average blood glucose level in the last 2-3 month period. Performed By: #### 5 5454-3 ####[facility] LABCLIA [id number] [address] [facility] HbA1c (Bld) [Mass fraction] 5.2 % Normal 4.3-5.6 [facility] Comment on above: Order Comment: Speci men Type: BLOOD SPECIMENOrdering Facility: [facility] Address: [address] [place] [address] Result Comment: [place] Diabetes Association guidelines indicate that patients with HgbA1c in the range 5.7-6.4% are at increased risk for development of diabetes, and intervention by lifestyle modification may be beneficial. HgbA1c greater or equal to 6.5% is considered diagnostic of diabetes. Performed By: #### 5 5454-3 ####[facility] LABCLIA [id number] [place] [address] [place] TSH SerPl-aCncon 07-18-2023 TSH Qn 2.150 m[IU]/L Normal 0.270-4.200 [facility] Comment on above: Order Comment: Speci men Type: BLOOD SPECIMENOrdering Facility: [facility] Address: [address] [place] [address] Performed By: #### 3 016-3, 2143-6 ####[facility] LABCLIA [id number] [address] [place] CBC W Auto Differential pane l (Bld)on 06-27-2023 Basophils (Bld) [#/Vol] 0.05 10*3/uL Normal <0.11 [facility] Comment on above: Order Comment: Speci men Type: BLOOD SPECIMENOrdering Facility: [facility] Address: [address] [place] [address] Performed By: #### 5 7021-8 ####[facility] LABCLIA [id number] [place] [address] Basophils/100 WBC (Bld) 0.8 % Normal [facility] Comment on above: Order Comment: Speci men Type: BLOOD SPECIMENOrdering Facility: [facility] Address: [address] [place] [address] Performed By: #### 5 7021-8 ####[facility] LABCLIA [id number] [place] [address] Differential cell count method Nom (Bld) Auto Normal [facility] Comment on above: Order Comment: Speci men Type: BLOOD SPECIMENOrdering Facility: [facility] Address: [address] [place] [address] Performed By: #### 5 7021-8 ####[facility] LABCLIA [id number] [place] [address] Eosinophils (Bld) [#/Vol] 0.28 10*3/uL Normal <0.46 [facility] Comment on above: Order Comment: Speci men Type: BLOOD SPECIMENOrdering Facility: [facility] Address: [address] [place] [address] Performed By: #### 5 7021-8 ####[facility] LABCLIA [id number] [place] [address] Eosinophils/100 WBC (Bld) 4.4 % Normal [facility] Comment on above: Order Comment: Speci men Type: BLOOD SPECIMENOrdering Facility: [facility] Address: [address] [place] [address] Performed By: #### 5 7021-8 ####[facility] LABCLIA [id number] [place] [address] Erythrocyte distribution width (RBC) [Ratio] 13.7 % Normal 11.5-15.0 [facility] Comment on above: Order Comment: Speci men Type: BLOOD SPECIMENOrdering Facility: [facility] Address: [address] [place] [address] Performed By: #### 5 7021-8 ####[facility] LABCLIA [id number] [place] [address] Hematocrit (Bld) [Volume fraction] 39.7 % Normal 39.0-51.0 [facility] Comment on above: Order Comment: Speci men Type: BLOOD SPECIMENOrdering Facility: [facility] Address: [address] [place] [address] Performed By: #### 5 7021-8 ####[facility] LABCLIA [id number] [place] [address] Hemoglobin (Bld) [Mass/Vol] 13.3 g/dL Normal 13.0-17.0 [facility] Comment on above: Order Comment: Speci men Type: BLOOD SPECIMENOrdering Facility: [facility] Address: [address] [place] [address] Performed By: #### 5 7021-8 ####[facility] LABCLIA [id number] [place] [address] Immature granulocytes (Bld) [#/Vol] 10*3/uL Normal <0.10 [facility] Comment on above: Order Comment: Speci men Type: BLOOD SPECIMENOrdering Facility: [facility] Address: [address] [place] [address] Performed By: #### 5 7021-8 ####[facility] LABCLIA [id number] [place] [address] Immature granulocytes/100 WBC (Bld) 0.3 % Normal [facility] Comment on above: Order Comment: Speci men Type: BLOOD SPECIMENOrdering Facility: [facility] Address: [address] [place] [address] Performed By: #### 5 7021-8 ####[facility] LABCLIA [id number] [place] [address] Lymphocytes (Bld) [#/Vol] 0.89 10*3/uL Low 1.00-4.00 [facility] Comment on above: Order Comment: Speci men Type: BLOOD SPECIMENOrdering Facility: [facility] Address: [address] [place] [address] Performed By: #### 5 7021-8 ####[facility] LABCLIA [id number] [place] [address] Lymphocytes/100 WBC (Bld) 14.1 % Normal [facility] Comment on above: Order Comment: Speci men Type: BLOOD SPECIMENOrdering Facility: [facility] Address: [address] [place] [address] Performed By: #### 5 7021-8 ####[facility] LABCLIA [id number] [place] [address] MCH (RBC) [Entitic mass] 28.2 pg Normal 26.0-34.0 [facility] Comment on above: Order Comment: Speci men Type: BLOOD SPECIMENOrdering Facility: [facility] Address: [address] [place] [address] Performed By: #### 5 7021-8 ####[facility] LABCLIA [id number] [place] [address] MCHC (RBC) [Mass/Vol] 33.5 g/dL Normal 30.5-36.0 [facility] Comment on above: Order Comment: Speci men Type: BLOOD SPECIMENOrdering Facility: [facility] Address: [address] [place] [address] Performed By: #### 5 7021-8 ####[facility] LABCLIA [id number] [place] [address] MCV (RBC) [Entitic vol] 84.3 fL Normal 80.0-100.0 [facility] Comment on above: Order Comment: Speci men Type: BLOOD SPECIMENOrdering Facility: [facility] Address: [address] [place] [address] Performed By: #### 5 7021-8 ####[facility] LABIA [id number] [place] [address] Monocytes (Bld) [#/Vol] 0.48 10*3/uL Normal <0.87 [facility] Comment on above: Order Comment: Speci men Type: BLOOD SPECIMENOrdering Facility: [facility] Address: [facility] [place] [address] Performed By: #### 5 7021-8 ####[facility] LABCLIA [id number] [place] [address] Monocytes/100 WBC (Bld) 7.6 % Normal [facility] Comment on above: Order Comment: Speci men Type: BLOOD SPECIMENOrdering Facility: [facility] Address: [address] [place] [address] Performed By: #### 5 7021-8 ####[facility] LABCLIA [id number] [place] [address] Neutrophils (Bld) [#/Vol] 4.60 10*3/uL Normal 1.45-7.50 [facility] Comment on above: Order Comment: Speci men Type: BLOOD SPECIMENOrdering Facility: [facility] Address: [address] [place] [address] Performed By: #### 5 7021-8 ####[facility] LABCLIA [id number] [place] [address] Neutrophils/100 WBC (Bld) 72.8 % Normal [facility] Comment on above: Order Comment: Speci men Type: BLOOD SPECIMENOrdering Facility: [facility] Address: [address] [place] [address] Performed By: #### 5 7021-8 ####[facility] LABCLIA [id number] [place] [address] Nucleated RBC (Bld) [#/Vol] 10*3/uL Normal <0.01 [facility] Comment on above: Order Comment: Speci men Type: BLOOD SPECIMENOrdering Facility: [facility] Address: [address] [place] [address] Performed By: #### 5 7021-8 ####[facility] LABCLIA [id number] [place] [address] Nucleated RBC/100 WBC (Bld) [Ratio] 0.0 /100 WBC Normal [facility] Comment on above: Order Comment: Speci men Type: BLOOD SPECIMENOrdering Facility: [facility] Address: [address] [place] [address] Performed By: #### 5 7021-8 ####[facility] LABCLIA [id number] [place] [address] Platelet mean volume (Bld) [Entitic vol] 9.5 fL Normal 9.0-12.7 [facility] Comment on above: Order Comment: Speci men Type: BLOOD SPECIMENOrdering Facility: [facility] Address: [address] [place] [address] Performed By: #### 5 7021-8 ####[facility] LABCLIA [id number] [place] [address] Platelets (Bld) [#/Vol] 177 10*3/uL Normal 150-400 [facility] Comment on above: Order Comment: Speci men Type: BLOOD SPECIMENOrdering Facility: [facility] Address: [address] [place] [address] Performed By: #### 5 7021-8 ####[facility] LABCLIA [id number] [place] [address] RBC (Bld) [#/Vol] 4.71 10*6/uL Normal 4.20-6.00 [facility] Comment on above: Order Comment: Speci men Type: BLOOD SPECIMENOrdering Facility: [facility] Address: [address] [place] [address] Performed By: #### 5 7021-8 ####[facility] LABCLIA [id number] [place] [address] WBC (Bld) [#/Vol] 6.32 10*3/uL Normal 3.70-11.00 [facility] Comment on above: Order Comment: Speci men Type: BLOOD SPECIMENOrdering Facility: [facility] Address: [address] [place] [address] Performed By: #### 5 7021-8 ####[facility] LABCLIA [id number] [place] [address] CNOVSPon 06-27-2023 CNOVSP Normal [facility] metabolic 2000 panelon 06-27-2023 Albumin [Mass/Vol] 4.1 g/dL Normal 3.9-4.9 [facility] Comment on above: Order Comment: Speci men Type: BLOOD SPECIMENOrdering Facility: [facility] Address: [address] [place] [address] Performed By: #### 2 4323-8 ####[facility] LABIA [id number] [place] [address] ALP [Catalytic activity/Vol] 83 U/L Normal 38-113 [facility] Comment on above: Order Comment: Speci men Type: BLOOD SPECIMENOrdering Facility: [facility] Address: [address] [place] [address] Performed By: #### 2 4323-8 ####[facility] LABIA [id number] [place] [address] ALT [Catalytic activity/Vol] 21 U/L Normal 10-54 [facility] Comment on above: Order Comment: Speci men Type: BLOOD SPECIMENOrdering Facility: [facility] Address: [address] [place] [address] Performed By: #### 2 4323-8 ####[facility] LABCLIA [id number] [place] [address] Anion gap [Moles/Vol] 10 mmol/L Normal 9-18 [facility] Comment on above: Order Comment: Speci men Type: BLOOD SPECIMENOrdering Facility: [facility] Address: [address] [place] [address] Performed By: #### 2 4323-8 ####[facility] LABCLIA [id number] [place] [address] AST [Catalytic activity/Vol] 28 U/L Normal 14-40 [facility] Comment on above: Order Comment: Speci men Type: BLOOD SPECIMENOrdering Facility: [facility] Address: [address] [place] [address] Performed By: #### 2 4323-8 ####[facility] LABCLIA [id number] [place] [address] Bilirubin [Mass/Vol] 0.4 mg/dL Normal 0.2-1.[address] [facility] Comment on above: Order Comment: Speci men Type: BLOOD SPECIMENOrdering Facility: [facility] Address: [address] [place] [address] Performed By: #### 2 4323-8 ####[facility] LABCLIA [id number] [place] [address] Calcium [Mass/Vol] 8.9 mg/dL Normal 8.5-10.2 [facility] Comment on above: Order Comment: Speci men Type: BLOOD SPECIMENOrdering Facility: [facility] Address: [address] [place] [address] Performed By: #### 2 4323-8 ####[facility] LABCLIA [id number] [place] [address] Chloride [Moles/Vol] 105 mmol/L Normal 97-[address] [facility] Comment on above: Order Comment: Speci men Type: BLOOD SPECIMENOrdering Facility: [facility] Address: [address] [place] [address] Performed By: #### 2 4323-8 ####[facility] LABCLIA [id number] [place] [address] CO2 [Moles/Vol] 24 mmol/L Normal 22-30 [facility] Comment on above: Order Comment: Speci men Type: BLOOD SPECIMENOrdering Facility: [facility] Address: [address] [place] [address] Performed By: #### 2 4323-8 ####[facility] LABCLIA [id number] [place] [address] Creatinine [Mass/Vol] 1.89 mg/dL High 0.73-1.22 [facility] Comment on above: Order Comment: Speci men Type: BLOOD SPECIMENOrdering Facility: [facility] Address: [address] [place] [address] Performed By: #### 2 4323-8 ####[facility] LABCLIA [id number] [place] [address] Creatinine and Glomerular filtration rate.predicted panel (S/P/Bld) 35 mL/min/1.73m??? Low >=60 [facility] Comment on above: Order Comment: Speci men Type: BLOOD SPECIMENOrdering Facility: [facility] Address: [address] [place] [address] Result Comment: Viviana mated Glomerular Filtration Rate (eGFR) is calculated using the 2020 CKD-EPI creatinine equation. This equation utilizes serum creatinine, sex, and age as parameters. The creatinine assay has traceable calibration to isotope dilution-mass spectrometry. Refer to KDIGO guidelines for clinical interpretation. In patients with unstable renal function, e.g. those with acute kidney injury, the eGFR may not accurately reflect actual GFR. Performed By: #### 2 4323-8 ####[facility] LABCLIA [id number] [place] [address] Glucose [Mass/Vol] 106 mg/dL High 74-99 [facility] Comment on above: Order Comment: Speci men Type: BLOOD SPECIMENOrdering Facility: [facility] Address: [address] [place] [address] Result Comment: The [place] Diabetes Association (ADA) provides guidance for cutoff values for fasting glucose and random glucose. The ADA defines fasting as no caloric intake for at least 8 hours. Fasting plasma glucose results between 100 to 125 mg/dL indicate increased risk for diabetes (prediabetes).Fasting plasma glucose results greater than or equal to 126 mg/dL meet the criteria for diagnosis of diabetes. In the absence of unequivocal hyperglycemia, results should be confirmed by repeat testing. In a patient with classic symptoms of hyperglycemia or hyperglycemic crisis, random plasma glucose results greater than or equal to 200 mg/dL meet the criteria for diagnosis of diabetes.Reference: Standards of Medical Care in Diabetes 2016, [place] [employer] Association. Diabetes Care. 2016.39(Suppl 1). Performed By: #### 2 4323-8 ####[facility] LABCLIA [id number] [place] [address] Potassium [Moles/Vol] 4.4 mmol/L Normal 3.7-5.1 [facility] Comment on above: Order Comment: Speci men Type: BLOOD SPECIMENOrdering Facility: [facility] Address: [address] [place] [address] Performed By: #### 2 4323-8 ####[facility] LABCLIA [id number] [place] [address] Protein [Mass/Vol] 6.0 g/dL Low 6.3-8.0 [facility] Comment on above: Order Comment: Speci men Type: BLOOD SPECIMENOrdering Facility: [facility] Address: [address] [place] [address] Performed By: #### 2 4323-8 ####[facility] LABCLIA [id number] [place] [address] Sodium [Moles/Vol] 139 mmol/L Normal 136-144 [facility] Comment on above: Order Comment: Speci men Type: BLOOD SPECIMENOrdering Facility: [facility] Address: [address] [place] [address] Performed By: #### 2 4323-8 ####[facility] LABCLIA [id number] [place] [address] Urea nitrogen [Mass/Vol] 31 mg/dL High 9-24 [facility] Comment on above: Order Comment: Speci men Type: BLOOD SPECIMENOrdering Facility: [facility] Address: [address] [place] [address] Performed By: #### 2 4323-8 ####[facility] LABCLIA [id number] [place] [address] Beverly ValdesHemalathaseda 06-27-20 Cortisol [Mass/Vol] 9.7 ug/dL Normal 4.8-19.5 [facility] Comment on above: Order Comment: Virginiai oralia Type: BLOOD SPECIMENOrdering Facility: [facility] Address: [address] [place] [address] Result Comment: Prov ided reference range is from 6-10 AM sample collection time.Cortisol Reference Range: 6-10 AM = 4.8-19.5 ug/dL, 4-8 PM = 2.5-11.9 ug/dL Performed By: #### 3 016-3, 2143-6 ####[facility] LABCLIA [id number] [address] [facility] HbA1c (Bld)on 06-27-2023 Average glucose Estimated from glycated hemoglobin (Bld) [Mass/Vol] 105 mg/dL Normal [facility] Comment on above: Order Comment: Vero barton Type: BLOOD SPECIMENOrdering Facility: [facility] Address: [address] [place] [address] Result Comment: eAG: (Estimated average glucose) is a calculated value from HgbA1c and is patient financial representative of the average blood glucose level in the last 2-3 month period. Performed By: #### 5 5454-3 ####[facility] LABCLIA [id number] [place] [address] [place] HbA1c (Bld) [Mass fraction] 5.3 % Normal 4.3-5.6 [facility] Comment on above: Order Comment: Vero barton Type: BLOOD SPECIMENOrdering Facility: [facility] Address: [address] [place] [address] Result Comment: [place] Diabetes Association guidelines indicate that patients with HgbA1c in the range 5.7-6.4% are at increased risk for development of diabetes, and intervention by lifestyle modification may be beneficial. HgbA1c greater or equal to 6.5% is considered diagnostic of diabetes. Performed By: #### 5 5454-3 ####[facility] LABCLIA [id number] [address] [facility] TSH SerPl-aCncon 06-27-2023 TSH Qn 1.920 m[IU]/L Normal 0.270-4.200 [facility] Comment on above: Order Comment: Speci men Type: BLOOD SPECIMENOrdering Facility: [facility] Address: [address] [place] [address] Performed By: #### 3 016-3, 2143-6 ####[facility] LABCLIA [id number] [address] CBC W Auto Differential pane l (Bld)on 06-06-2023 Basophils (Bld) [#/Vol] 0.05 10*3/uL Normal <0.11 [facility] Comment on above: Order Comment: Speci men Type: BLOOD SPECIMENOrdering Facility: [facility] Address: [address] [place] [address] Performed By: #### 5 7021-8 ####[facility] LABCLIA [id number] [place] [address] Basophils/100 WBC (Bld) 0.8 % Normal [facility] Comment on above: Order Comment: Speci men Type: BLOOD SPECIMENOrdering Facility: [facility] Address: [address] [place] [address] Performed By: #### 5 7021-8 ####[facility] LABCLIA [id number] [place] [address] Differential cell count method Nom (Bld) Auto Normal [facility] Comment on above: Order Comment: Speci men Type: BLOOD SPECIMENOrdering Facility: [facility] Address: [address] [place] [address] Performed By: #### 5 7021-8 ####[facility] LABCLIA [id number] [place] [address] Eosinophils (Bld) [#/Vol] 0.32 10*3/uL Normal <0.46 [facility] Comment on above: Order Comment: Speci men Type: BLOOD SPECIMENOrdering Facility: [facility] Address: [address] [place] [address] Performed By: #### 5 7021-8 ####[facility] LABCLIA [id number] [place] [address] Eosinophils/100 WBC (Bld) 4.8 % Normal [facility] Comment on above: Order Comment: Speci men Type: BLOOD SPECIMENOrdering Facility: [facility] Address: [address] [place] [address] Performed By: #### 5 7021-8 ####[facility] LABCLIA [id number] [place] [address] Erythrocyte distribution width (RBC) [Ratio] 13.8 % Normal 11.5-15.0 [facility] Comment on above: Order Comment: Speci men Type: BLOOD SPECIMENOrdering Facility: [facility] Address: [address] [place] [address] Performed By: #### 5 7021-8 ####[facility] LABCLIA [id number] [place] [address] Hematocrit (Bld) [Volume fraction] 42.6 % Normal 39.0-51.0 [facility] Comment on above: Order Comment: Speci men Type: BLOOD SPECIMENOrdering Facility: [facility] Address: [address] [place] [address] Performed By: #### 5 7021-8 ####[facility] LABCLIA [id number] [place] [address] Hemoglobin (Bld) [Mass/Vol] 14.4 g/dL Normal 13.0-17.0 [facility] Comment on above: Order Comment: Speci men Type: BLOOD SPECIMENOrdering Facility: [facility] Address: [address] [place] [address] Performed By: #### 5 7021-8 ####[facility] LABCLIA [id number] [place] [address] Immature granulocytes (Bld) [#/Vol] 0.03 10*3/uL Normal <0.10 [facility] Comment on above: Order Comment: Speci men Type: BLOOD SPECIMENOrdering Facility: [facility] Address: [address] [place] [address] Performed By: #### 5 7021-8 ####[facility] LABCLIA [id number] [place] [address] Immature granulocytes/100 WBC (Bld) 0.5 % Normal [facility] Comment on above: Order Comment: Speci men Type: BLOOD SPECIMENOrdering Facility: [facility] Address: [address] [place] [address] Performed By: #### 5 7021-8 ####[facility] LABCLIA [id number] [place] [address] Lymphocytes (Bld) [#/Vol] 0.93 10*3/uL Low 1.00-4.00 [facility] Comment on above: Order Comment: Speci men Type: BLOOD SPECIMENOrdering Facility: [facility] Address: [address] [place] [address] Performed By: #### 5 7021-8 ####[facility] LABCLIA [id number] [place] [address] Lymphocytes/100 WBC (Bld) 14.1 % Normal [facility] Comment on above: Order Comment: Speci men Type: BLOOD SPECIMENOrdering Facility: [facility] Address: [address] [place] [address] Performed By: #### 5 7021-8 ####[facility] LABCLIA [id number] [place] [address] MCH (RBC) [Entitic mass] 28.7 pg Normal 26.0-34.0 [facility] Comment on above: Order Comment: Speci men Type: BLOOD SPECIMENOrdering Facility: [facility] Address: [address] [place] [address] Performed By: #### 5 7021-8 ####[facility] LABCLIA [id number] [place] [address] MCHC (RBC) [Mass/Vol] 33.8 g/dL Normal 30.5-36.0 [facility] Comment on above: Order Comment: Speci men Type: BLOOD SPECIMENOrdering Facility: [facility] Address: [address] [place] [address] Performed By: #### 5 7021-8 ####[facility] LABIA [id number] [place] [address] MCV (RBC) [Entitic vol] 84.9 fL Normal 80.0-100.0 [facility] Comment on above: Order Comment: Speci men Type: BLOOD SPECIMENOrdering Facility: [facility] Address: [address] [place] [address] Performed By: #### 5 7021-8 ####[facility] LABCLIA [id number] [place] [address] Monocytes (Bld) [#/Vol] 0.42 10*3/uL Normal <0.87 [facility] Comment on above: Order Comment: Speci men Type: BLOOD SPECIMENOrdering Facility: [facility] Address: [address] [place] [address] Performed By: #### 5 7021-8 ####[facility] LABIA [id number] [place] [address] Monocytes/100 WBC (Bld) 6.4 % Normal [facility] Comment on above: Order Comment: Speci men Type: BLOOD SPECIMENOrdering Facility: [facility] Address: [address] [place] [place] [address] Performed By: #### 5 7021-8 ####[facility] LABCLIA [id number] [place] [address] Neutrophils (Bld) [#/Vol] 4.85 10*3/uL Normal 1.45-7.50 [facility] Comment on above: Order Comment: Speci men Type: BLOOD SPECIMENOrdering Facility: [facility] Address: [address] [place] [address] Performed By: #### 5 7021-8 ####[facility] LABCLIA [id number] [place] [address] Neutrophils/100 WBC (Bld) 73.4 % Normal [facility] Comment on above: Order Comment: Speci men Type: BLOOD SPECIMENOrdering Facility: [facility] Address: [address] [place] [address] Performed By: #### 5 7021-8 ####[facility] LABCLIA [id number] [place] [address] Nucleated RBC (Bld) [#/Vol] 10*3/uL Normal <0.01 [facility] Comment on above: Order Comment: Speci men Type: BLOOD SPECIMENOrdering Facility: [facility] Address: [address] [place] [address] Performed By: #### 5 7021-8 ####[facility] LABCLIA [id number] [place] [address] Nucleated RBC/100 WBC (Bld) [Ratio] 0.0 /100 WBC Normal [facility] Comment on above: Order Comment: Speci men Type: BLOOD SPECIMENOrdering Facility: [facility] Address: [address] [place] [address] Performed By: #### 5 7021-8 ####[facility] LABCLIA [id number] [place] [address] Platelet mean volume (Bld) [Entitic vol] 9.0 fL Normal 9.0-12.7 [facility] Comment on above: Order Comment: Speci men Type: BLOOD SPECIMENOrdering Facility: [facility] Address: [address] [place] [address] Performed By: #### 5 7021-8 ####[facility] LABCLIA [id number] [place] [address] Platelets (Bld) [#/Vol] 185 10*3/uL Normal 150-400 [facility] Comment on above: Order Comment: Speci men Type: BLOOD SPECIMENOrdering Facility: [facility] Address: [address] [place] [address] Performed By: #### 5 7021-8 ####[facility] LABIA [id number] [place] [address] RBC (Bld) [#/Vol] 5.02 10*6/uL Normal 4.20-6.00 [facility] Comment on above: Order Comment: Speci men Type: BLOOD SPECIMENOrdering Facility: [facility] Address: [address] [place] [address] Performed By: #### 5 7021-8 ####[facility] LABIA [id number] [place] [address] WBC (Bld) [#/Vol] 6.60 10*3/uL Normal 3.70-11.00 [facility] Comment on above: Order Comment: Speci men Type: BLOOD SPECIMENOrdering Facility: [facility] Address: [address] [place] [address] Performed By: #### 5 7021-8 ####[facility] LABIA [id number] [place] [address] CNOVSPon 06-06-2023 CNOVSP Normal [facility] Comprehensive metabolic 2000 panelon 06-06-2023 Albumin [Mass/Vol] 4.6 g/dL Normal 3.9-4.9 [facility] Comment on above: Order Comment: Speci men Type: BLOOD SPECIMENOrdering Facility: [facility] Address: [address] [address] Performed By: #### 2 4323-8 ####[facility] LABCLIA [id number] [place] [address] ALP [Catalytic activity/Vol] 82 U/L Normal 38-113 [facility] Comment on above: Order Comment: Speci men Type: BLOOD SPECIMENOrdering Facility: [facility] Address: [address] [address] Performed By: #### 2 4323-8 ####[facility] LABCLIA [id number] [place] [address] ALT [Catalytic activity/Vol] 17 U/L Normal 10-54 [facility] Comment on above: Order Comment: Speci men Type: BLOOD SPECIMENOrdering Facility: [facility] Address: [address] [address] Performed By: #### 2 4323-8 ####[facility] LABCLIA [id number] [place] [address] Anion gap [Moles/Vol] 9 mmol/L Normal 9-18 [facility] Comment on above: Order Comment: Speci men Type: BLOOD SPECIMENOrdering Facility: [facility] Address: [address] [address] Performed By: #### 2 4323-8 ####[facility] LABCLIA [id number] [place] [address] AST [Catalytic activity/Vol] 25 U/L Normal 14-40 [facility] Comment on above: Order Comment: Speci men Type: BLOOD SPECIMENOrdering Facility: [facility] Address: [address] [address] Performed By: #### 2 4323-8 ####[facility] LABCLIA [id number] [place] [address] Bilirubin [Mass/Vol] 0.6 mg/dL Normal 0.2-1.[address] [facility] Comment on above: Order Comment: Speci men Type: BLOOD SPECIMENOrdering Facility: [facility] Address: [address] [place] [address] Performed By: #### 2 4323-8 ####[facility] LABCLIA [id number] [place] [address] Calcium [Mass/Vol] 9.2 mg/dL Normal 8.5-10.2 [facility] Comment on above: Order Comment: Speci men Type: BLOOD SPECIMENOrdering Facility: [facility] Address: [address] [place] [address] Performed By: #### 2 4323-8 ####[facility] LABCLIA [id number] [place] [address] Chloride [Moles/Vol] 104 mmol/L Normal 97-[address] [facility] Comment on above: Order Comment: Speci men Type: BLOOD SPECIMENOrdering Facility: [facility] Address: [address] [place] [address] Performed By: #### 2 4323-8 ####[facility] LABCLIA [id number] [place] [address] CO2 [Moles/Vol] 25 mmol/L Normal 22-30 [facility] Comment on above: Order Comment: Speci men Type: BLOOD SPECIMENOrdering Facility: [facility] Address: [address] [place] [address] Performed By: #### 2 4323-8 ####[facility] LABCLIA [id number] [place] [address] Creatinine [Mass/Vol] 2.01 mg/dL High 0.73-1.22 [facility] Comment on above: Order Comment: Speci men Type: BLOOD SPECIMENOrdering Facility: [facility] Address: [address] [place] [address] Performed By: #### 2 4323-8 ####[facility] LABCLIA [id number] [place] [address] Creatinine and Glomerular filtration rate.predicted panel (S/P/Bld) 32 mL/min/1.73m??? Low >=60 [facility] Comment on above: Order Comment: Vero barton Type: BLOOD SPECIMENOrdering Facility: [facility] Address: [address] [place] [address] Result Comment: Viviana mated Glomerular Filtration Rate (eGFR) is calculated using the 2020 CKD-EPI creatinine equation. This equation utilizes serum creatinine, sex, and age as parameters. The creatinine assay has traceable calibration to isotope dilution-mass spectrometry. Refer to KDIGO guidelines for clinical interpretation. In patients with unstable renal function, e.g. those with acute kidney injury, the eGFR may not accurately reflect actual GFR. Performed By: #### 2 4323-8 ####[facility] LABCLIA [id number] [place] [address] Glucose [Mass/Vol] 100 mg/dL High 74-99 [facility] Comment on above: Order Comment: Vero barton Type: BLOOD SPECIMENOrdering Facility: [facility] Address: [address] [place] [address] Result Comment: The [place] Diabetes Association (ADA) provides guidance for cutoff values for fasting glucose and random glucose. The ADA defines fasting as no caloric intake for at least 8 hours. Fasting plasma glucose results between 100 to 125 mg/dL indicate increased risk for diabetes (prediabetes).Fasting plasma glucose results greater than or equal to 126 mg/dL meet the criteria for diagnosis of diabetes. In the absence of unequivocal hyperglycemia, results should be confirmed by repeat testing. In a patient with classic symptoms of hyperglycemia or hyperglycemic crisis, random plasma glucose results greater than or equal to 200 mg/dL meet the criteria for diagnosis of diabetes.Reference: Standards of Medical Care in Diabetes 2016, [place] [employer] Association. Diabetes Care. 2016.39(Suppl 1). Performed By: #### 2 4323-8 ####[facility] LABCLIA [id number] [place] [address] Potassium [Moles/Vol] 4.6 mmol/L Normal 3.7-5.1 [facility] Comment on above: Order Comment: Speci men Type: BLOOD SPECIMENOrdering Facility: [facility] Address: [address] [place] [address] Performed By: #### 2 4323-8 ####[facility] LABCLIA [id number] [place] [address] Protein [Mass/Vol] 6.5 g/dL Normal 6.3-8.0 [facility] Comment on above: Order Comment: Speci men Type: BLOOD SPECIMENOrdering Facility: [facility] Address: [address] [place] [address] Performed By: #### 2 4323-8 ####[facility] LABCLIA [id number] [place] [address] Sodium [Moles/Vol] 138 mmol/L Normal 136-144 [facility] Comment on above: Order Comment: Speci men Type: BLOOD SPECIMENOrdering Facility: [facility] Address: [address] [place] [address] Performed By: #### 2 4323-8 ####[facility] LABCLIA [id number] [place] [address] Urea nitrogen [Mass/Vol] 36 mg/dL High 9-24 [facility] Comment on above: Order Comment: Speci men Type: BLOOD SPECIMENOrdering Facility: [facility] Address: [address] [place] [address] Performed By: #### 2 4323-8 ####[facility] LABCLIA [id number] [place] [address] Beverly Koehler 06-06-20 23 Cortisol [Mass/Vol] 6.4 ug/dL Normal 4.8-19.5 [facility] Comment on above: Order Comment: Speci men Type: BLOOD SPECIMENOrdering Facility: [facility] Address: [address] [place] [address] Result Comment: Prov ided reference range is from 6-10 AM sample collection time.Cortisol Reference Range: 6-10 AM = 4.8-19.5 ug/dL, 4-8 PM = 2.5-11.9 ug/dL Performed By: #### 3 016-3, 2143-6 ####[facility] LABCLIA [id number] [place] [address] [place] HbA1c (Bld)on 06-06-2023 Average glucose Estimated from glycated hemoglobin (Bld) [Mass/Vol] 97 mg/dL Normal [facility] Comment on above: Order Comment: Speci men Type: BLOOD SPECIMENOrdering Facility: [facility] Address: [address] [place] [address] Result Comment: eAG: (Estimated average glucose) is a calculated value from HgbA1c and is patient financial representative of the average blood glucose level in the last 2-3 month period. Performed By: #### 5 5454-3 ####[facility] LABCLIA [id number] [place] [address] [place] [facility] HbA1c (Bld) [Mass fraction] 5.0 % Normal 4.3-5.6 [facility] Comment on above: Order Comment: Speci men Type: BLOOD SPECIMENOrdering Facility: [facility] Address: [address] [place] [address] Result Comment: [place] Diabetes Association guidelines indicate that patients with HgbA1c in the range 5.7-6.4% are at increased risk for development of diabetes, and intervention by lifestyle modification may be beneficial. HgbA1c greater or equal to 6.5% is considered diagnostic of diabetes. Performed By: #### 5 5454-3 ####[facility] LABCLIA [id number] [place] [address] [place] TSH SerPl-aCncon 06-06-2023 TSH Qn 4.600 m[IU]/L High 0.270-4.200 [facility] Comment on above: Order Comment: Speci men Type: BLOOD SPECIMENOrdering Facility: [facility] Address: [address] [address] Performed By: #### 3 016-3, 2143-6 ####[facility] LABCLIA [id number] [address] [place], [place] [address] [place] CT ABD/PEL W IVCONon 023 CT ABD/PEL W IVCON Normal [facility] CT CHEST W IVCONon 3 CT CHEST W IVCON Normal [facility] CBC W Auto Differential pane l (Bld)on 05-16-2023 Basophils (Bld) [#/Vol] 0.05 10*3/uL Normal <0.11 [facility] Comment on above: Order Comment: Speci men Type: BLOOD SPECIMENOrdering Facility: [facility] Address: [address] [address] Performed By: #### 5 7021-8 ####[facility] LABCLIA [id number] [place] [address] Basophils/100 WBC (Bld) 0.7 % Normal [facility] Comment on above: Order Comment: Speci men Type: BLOOD SPECIMENOrdering Facility: [facility] Address: [address] [place] [address] Performed By: #### 5 7021-8 ####[facility] LABCLIA [id number] [place] [address] Differential cell count method Nom (Bld) Auto Normal [facility] Comment on above: Order Comment: Speci men Type: BLOOD SPECIMENOrdering Facility: [facility] Address: [address] [address] Performed By: #### 5 7021-8 ####[facility] LABCLIA [id number] [place] [address] Eosinophils (Bld) [#/Vol] 0.31 10*3/uL Normal <0.46 [facility] Comment on above: Order Comment: Speci men Type: BLOOD SPECIMENOrdering Facility: [facility] Address: [address] [place] [address] Performed By: #### 5 7021-8 ####[facility] LABCLIA [id number] [place] [address] Eosinophils/100 WBC (Bld) 4.5 % Normal [facility] Comment on above: Order Comment: Speci men Type: BLOOD SPECIMENOrdering Facility: [facility] Address: [address] [place] [address] Performed By: #### 5 7021-8 ####[facility] LABCLIA [id number] [place] [address] Erythrocyte distribution width (RBC) [Ratio] 14.3 % Normal 11.5-15.0 [facility] Comment on above: Order Comment: Speci men Type: BLOOD SPECIMENOrdering Facility: [facility] Address: [address] [place] [address] Performed By: #### 5 7021-8 ####[facility] LABCLIA [id number] [place] [address] Hematocrit (Bld) [Volume fraction] 40.4 % Normal 39.0-51.0 [facility] Comment on above: Order Comment: Speci men Type: BLOOD SPECIMENOrdering Facility: [facility] Address: [address] [place] [address] Performed By: #### 5 7021-8 ####[facility] LABCLIA [id number] [place] [address] Hemoglobin (Bld) [Mass/Vol] 13.3 g/dL Normal 13.0-17.0 [facility] Comment on above: Order Comment: Speci men Type: BLOOD SPECIMENOrdering Facility: [facility] Address: [address] [place] [address] Performed By: #### 5 7021-8 ####[facility] LABCLIA [id number] [place] [address] Immature granulocytes (Bld) [#/Vol] 10*3/uL Normal <0.10 [facility] Comment on above: Order Comment: Speci men Type: BLOOD SPECIMENOrdering Facility: [facility] Address: [address] [place] [address] Performed By: #### 5 7021-8 ####[facility] LABCLIA [id number] [place] [address] Immature granulocytes/100 WBC (Bld) 0.3 % Normal [facility] Comment on above: Order Comment: Speci men Type: BLOOD SPECIMENOrdering Facility: [facility] Address: [address] [place] [address] Performed By: #### 5 7021-8 ####[facility] LABCLIA [id number] [place] [address] Lymphocytes (Bld) [#/Vol] 0.94 10*3/uL Low 1.00-4.00 [facility] Comment on above: Order Comment: Speci men Type: BLOOD SPECIMENOrdering Facility: [facility] Address: [address] [place] [address] Performed By: #### 5 7021-8 ####[facility] LABCLIA [id number] [place] [address] Lymphocytes/100 WBC (Bld) 13.6 % Normal [facility] Comment on above: Order Comment: Speci men Type: BLOOD SPECIMENOrdering Facility: [facility] Address: [address] [place] [address] Performed By: #### 5 7021-8 ####[facility] LABCLIA [id number] [place] [address] MCH (RBC) [Entitic mass] 27.8 pg Normal 26.0-34.0 [facility] Comment on above: Order Comment: Speci men Type: BLOOD SPECIMENOrdering Facility: [facility] Address: [address] [address] Performed By: #### 5 7021-8 ####[facility] LABIA [id number] [place] [address] MCHC (RBC) [Mass/Vol] 32.9 g/dL Normal 30.5-36.0 [facility] Comment on above: Order Comment: Speci men Type: BLOOD SPECIMENOrdering Facility: [facility] Address: [address] [place] [address] Performed By: #### 5 7021-8 ####[facility] LABIA [id number] [place] [address] MCV (RBC) [Entitic vol] 84.5 fL Normal 80.0-100.0 [facility] Comment on above: Order Comment: Speci men Type: BLOOD SPECIMENOrdering Facility: [facility] Address: [address] [place] [address] Performed By: #### 5 7021-8 ####[facility] LABIA [id number] [place] [address] Monocytes (Bld) [#/Vol] 0.33 10*3/uL Normal <0.87 [facility] Comment on above: Order Comment: Speci men Type: BLOOD SPECIMENOrdering Facility: [facility] Address: [address] [place] [address] Performed By: #### 5 7021-8 ####[facility] LABIA [id number] [place] [address] Monocytes/100 WBC (Bld) 4.8 % Normal [facility] Comment on above: Order Comment: Speci men Type: BLOOD SPECIMENOrdering Facility: [facility] Address: [address] [place] [address] Performed By: #### 5 7021-8 ####[facility] LABIA [id number] [place] [address] Neutrophils (Bld) [#/Vol] 5.26 10*3/uL Normal 1.45-7.50 [facility] Comment on above: Order Comment: Speci men Type: BLOOD SPECIMENOrdering Facility: [facility] Address: [address] [place] [address] Performed By: #### 5 7021-8 ####[facility] LABCLIA [id number] [place] [address] Neutrophils/100 WBC (Bld) 76.1 % Normal [facility] Comment on above: Order Comment: Speci men Type: BLOOD SPECIMENOrdering Facility: [facility] Address: [address] [place] [address] Performed By: #### 5 7021-8 ####[facility] LABCLIA [id number] [place] [address] Nucleated RBC (Bld) [#/Vol] 10*3/uL Normal <0.01 [facility] Comment on above: Order Comment: Speci men Type: BLOOD SPECIMENOrdering Facility: [facility] Address: [address] [place] [address] Performed By: #### 5 7021-8 ####[facility] LABCLIA [id number] [place] [address] Nucleated RBC/100 WBC (Bld) [Ratio] 0.0 /100 WBC Normal [facility] Comment on above: Order Comment: Speci men Type: BLOOD SPECIMENOrdering Facility: [facility] Address: [address] [place] [address] Performed By: #### 5 7021-8 ####[facility] LABCLIA [id number] [place] [address] Platelet mean volume (Bld) [Entitic vol] 8.8 fL Low 9.0-12.7 [facility] Comment on above: Order Comment: Speci men Type: BLOOD SPECIMENOrdering Facility: [facility] Address: [address] [place], [place] [id number] Performed By: #### 5 7021-8 ####[facility] LABCLIA [id number] [place] [address] Platelets (Bld) [#/Vol] 188 10*3/uL Normal 150-400 [facility] Comment on above: Order Comment: Speci men Type: BLOOD SPECIMENOrdering Facility: [facility] Address: [address] [place] [address] Performed By: #### 5 7021-8 ####[facility] LABCLIA [id number] [place] [address] RBC (Bld) [#/Vol] 4.78 10*6/uL Normal 4.20-6.00 [facility] Comment on above: Order Comment: Speci men Type: BLOOD SPECIMENOrdering Facility: [facility] Address: [address] [place] [address] Performed By: #### 5 7021-8 ####[facility] LABIA [id number] [place] [address] WBC (Bld) [#/Vol] 6.91 10*3/uL Normal 3.70-11.00 [facility] Comment on above: Order Comment: Speci men Type: BLOOD SPECIMENOrdering Facility: [facility] Address: [address] [place] [address] Performed By: #### 5 7021-8 ####[facility] LABIA [id number] [place] [address] CNOVSPon 05-16-2023 CNOVSP Normal [facility] Comprehensive metabolic 2000 panelon 05-16-2023 Albumin [Mass/Vol] 4.2 g/dL Normal 3.9-4.9 [facility] Comment on above: Order Comment: Speci men Type: BLOOD SPECIMENOrdering Facility: [facility] Address: [address] [place] [address] Performed By: #### 2 4323-8 ####[facility] LABCLIA [id number] [place] [address] ALP [Catalytic activity/Vol] 75 U/L Normal 38-113 [facility] Comment on above: Order Comment: Speci men Type: BLOOD SPECIMENOrdering Facility: [facility] Address: [address] [place] [address] Performed By: #### 2 4323-8 ####[facility] LABCLIA [id number] [place] [address] ALT [Catalytic activity/Vol] 17 U/L Normal 10-54 [facility] Comment on above: Order Comment: Speci men Type: BLOOD SPECIMENOrdering Facility: [facility] Address: [address] [place] [address] Performed By: #### 2 4323-8 ####[facility] LABCLIA [id number] [place] [address] Anion gap [Moles/Vol] 9 mmol/L Normal 9-18 [facility] Comment on above: Order Comment: Speci men Type: BLOOD SPECIMENOrdering Facility: [facility] Address: [address] [place] [address] Performed By: #### 2 4323-8 ####[facility] LABCLIA [id number] [place] [address] AST [Catalytic activity/Vol] 26 U/L Normal 14-40 [facility] Comment on above: Order Comment: Speci men Type: BLOOD SPECIMENOrdering Facility: [facility] Address: [address] [place] [address] Performed By: #### 2 4323-8 ####[facility] LABCLIA [id number] [place] [address] Bilirubin [Mass/Vol] 0.5 mg/dL Normal 0.2-1.[address] [facility] Comment on above: Order Comment: Speci men Type: BLOOD SPECIMENOrdering Facility: [facility] Address: [address] [address] Performed By: #### 2 4323-8 ####[facility] LABCLIA [id number] [place] [address] Calcium [Mass/Vol] 8.9 mg/dL Normal 8.5-10.2 [facility] Comment on above: Order Comment: Speci men Type: BLOOD SPECIMENOrdering Facility: [facility] Address: [address] [address] Performed By: #### 2 4323-8 ####[facility] LABCLIA [id number] [place] [address] Chloride [Moles/Vol] 103 mmol/L Normal 97-[address] [facility] Comment on above: Order Comment: Speci men Type: BLOOD SPECIMENOrdering Facility: [facility] Address: [address] [address] Performed By: #### 2 4323-8 ####[facility] LABCLIA [id number] [place] [address] CO2 [Moles/Vol] 25 mmol/L Normal 22-30 [facility] Comment on above: Order Comment: Speci men Type: BLOOD SPECIMENOrdering Facility: [facility] Address: [address] [address] Performed By: #### 2 4323-8 ####[facility] LABCLIA [id number] [place] [address] Creatinine [Mass/Vol] 1.87 mg/dL High 0.73-1.22 [facility] Comment on above: Order Comment: Speci men Type: BLOOD SPECIMENOrdering Facility: [facility] Address: [address] [place] [address] Performed By: #### 2 4323-8 ####[facility] LABCLIA [id number] [place] [address] ESTIMATED GLOMERULAR FILTRATION RATE 35 mL/min/1.73m??? Low >=60 [facility] Comment on above: Order Comment: Vero barton Type: BLOOD SPECIMENOrdering Facility: [facility] Address: [address] [facility] [address] Result Comment: Viviana mated Glomerular Filtration Rate (eGFR) is calculated using the 2020 CKD-EPI creatinine equation. This equation utilizes serum creatinine, sex, and age as parameters. The creatinine assay has traceable calibration to isotope dilution-mass spectrometry. Refer to KDIGO guidelines for clinical interpretation. In patients with unstable renal function, e.g. those with acute kidney injury, the eGFR may not accurately reflect actual GFR. Performed By: #### 2 4323-8 ####[facility] LABCLIA [id number] [place] [address] Glucose [Mass/Vol] 142 mg/dL High 74-99 [facility] Comment on above: Order Comment: Vero barton Type: BLOOD SPECIMENOrdering Facility: [facility] Address: [address] [phone] Result Comment: The [place] Diabetes Association (ADA) provides guidance for cutoff values for fasting glucose and random glucose. The ADA defines fasting as no caloric intake for at least 8 hours. Fasting plasma glucose results between 100 to 125 mg/dL indicate increased risk for diabetes (prediabetes).Fasting plasma glucose results greater than or equal to 126 mg/dL meet the criteria for diagnosis of diabetes. In the absence of unequivocal hyperglycemia, results should be confirmed by repeat testing. In a patient with classic symptoms of hyperglycemia or hyperglycemic crisis, random plasma glucose results greater than or equal to 200 mg/dL meet the criteria for diagnosis of diabetes.Reference: Standards of Medical Care in Diabetes 2016, [place] [employer] Association. Diabetes Care. 2016.39(Suppl 1). Performed By: #### 2 4323-8 ####[facility] LABCLIA [id number] [place] [address] Potassium [Moles/Vol] 3.9 mmol/L Normal 3.7-5.1 [facility] Comment on above: Order Comment: Vero barton Type: BLOOD SPECIMENOrdering Facility: [facility] Address: [address] [address] Performed By: #### 2 4323-8 ####[facility] LABCLIA [id number] [place] [address] Protein [Mass/Vol] 6.1 g/dL Low 6.3-8.0 [facility] Comment on above: Order Comment: Speci men Type: BLOOD SPECIMENOrdering Facility: [facility] Address: [address] [place] [address] Performed By: #### 2 4323-8 ####[facility] LABCLIA [id number] [place] [address] Sodium [Moles/Vol] 137 mmol/L Normal 136-144 [facility] Comment on above: Order Comment: Speci men Type: BLOOD SPECIMENOrdering Facility: [facility] Address: [address] [place] [address] Performed By: #### 2 4323-8 ####[facility] LABCLIA [id number] [place] [address] Urea nitrogen [Mass/Vol] 24 mg/dL Normal 9-24 [facility] Comment on above: Order Comment: Speci men Type: BLOOD SPECIMENOrdering Facility: [facility] Address: [address] [place] [address] Performed By: #### 2 4323-8 ####[facility] LABCLIA [id number] [place] [address] Cortshaye Koehler 05-16-20 23 Cortisol [Mass/Vol] 9.2 ug/dL Normal 4.8-19.5 [facility] Comment on above: Order Comment: Speci men Type: BLOOD SPECIMENOrdering Facility: [facility] Address: [address] [place] [address] Result Comment: Prov ided reference range is from 6-10 AM sample collection time.Cortisol Reference Range: 6-10 AM = 4.8-19.5 ug/dL, 4-8 PM = 2.5-11.9 ug/dL Performed By: #### 3 016-3, 2143-03 ####[facility] LABCLIA [id number] [address] HbA1c (Bld)on 05-16-2023 Average glucose Estimated from glycated hemoglobin (Bld) [Mass/Vol] 94 mg/dL Normal [facility] Comment on above: Order Comment: Speci men Type: BLOOD SPECIMENOrdering Facility: [facility] Address: [address] [place] [address] Result Comment: eAG: (Estimated average glucose) is a calculated value from HgbA1c and is patient financial representative of the average blood glucose level in the last 2-3 month period. Performed By: #### 5 5454-3 ####[facility] LABIA [id number] [address] HbA1c (Bld) [Mass fraction] 4.9 % Normal 4.3-5.6 [facility] Comment on above: Order Comment: Speci men Type: BLOOD SPECIMENOrdering Facility: [facility] Address: [address] [place] [address] Result Comment: [place] Diabetes Association guidelines indicate that patients with HgbA1c in the range 5.7-6.4% are at increased risk for development of diabetes, and intervention by lifestyle modification may be beneficial. HgbA1c greater or equal to 6.5% is considered diagnostic of diabetes. Performed By: #### 5 5454-3 ####[facility] LABIA [id number] [address] [place] TSH SerPl-aCncon 05-16-2023 TSH Qn 2.580 m[IU]/L Normal 0.270-4.200 [facility] Comment on above: Order Comment: Speci men Type: BLOOD SPECIMENOrdering Facility: [facility] Address: [address] [place] [address] Performed By: #### 3 016-3, 2143-03 ####[facility] LABCLIA [id number] [facility] [place] [address] [place] Consultation Noteon 04-26-20 23 Consultation Note [id number] .[id number]:127 Normal [facility] Follow-Upon 04-26-2023 Follow-Up [id number] Juan Jose Austin 1940 M Date Provider Department Center 04/26/2023 JOSESITO GARY CARD Tamiko Hos Family History Problem Relation Age of Onset Heart failure Mother Family Status - Relation Status Age at Mother Level of Service:45018 MS OFFICE/OUTPATIENT ESTABLISHED MOD MDM 30-39 MIN Reason for Visit and Comments: Follow-up [074853] - Pt is here for PPM F/U Normal [facility] CBC W Auto Differential pane l (Bld)on 04-25-2023 Basophils (Bld) [#/Vol] 0.03 10*3/uL Normal <0.11 [facility] Comment on above: Order Comment: Speci men Type: BLOOD SPECIMENOrdering Facility: [facility] Address: [address] [address] Performed By: #### 5 7021-8 ####[facility] LABIA [id number] [place] [id number] Basophils/100 WBC (Bld) 0.5 % Normal [facility] Comment on above: Order Comment: Speci men Type: BLOOD SPECIMENOrdering Facility: [facility] Address: [address] [address] Performed By: #### 5 7021-8 ####[facility] LABCLIA [id number] [place] [address] Differential cell count method Nom (Bld) Auto Normal [facility] Comment on above: Order Comment: Speci men Type: BLOOD SPECIMENOrdering Facility: [facility] Address: [address] [address] Performed By: #### 5 7021-8 ####[facility] LABCLIA [id number] [place] [address] Eosinophils (Bld) [#/Vol] 0.31 10*3/uL Normal <0.46 [facility] Comment on above: Order Comment: Speci men Type: BLOOD SPECIMENOrdering Facility: [facility] Address: [address] [place] [address] Performed By: #### 5 7021-8 ####[facility] LABCLIA [id number] [place] [address] Eosinophils/100 WBC (Bld) 4.8 % Normal [facility] Comment on above: Order Comment: Speci men Type: BLOOD SPECIMENOrdering Facility: [facility] Address: [address] [place] [address] Performed By: #### 5 7021-8 ####[facility] LABIA [id number] [place] [address] Erythrocyte distribution width (RBC) [Ratio] 15.3 % High 11.5-15.0 [facility] Comment on above: Order Comment: Speci men Type: BLOOD SPECIMENOrdering Facility: [facility] Address: [address] [place] [address] Performed By: #### 5 7021-8 ####[facility] LABCLIA [id number] [place] [address] Hematocrit (Bld) [Volume fraction] 37.9 % Low 39.0-51.0 [facility] Comment on above: Order Comment: Speci men Type: BLOOD SPECIMENOrdering Facility: [facility] Address: [address] [place] [address] Performed By: #### 5 7021-8 ####[facility] LABCLIA [id number] [place] [address] Hemoglobin (Bld) [Mass/Vol] 12.6 g/dL Low 13.0-17.0 [facility] Comment on above: Order Comment: Speci men Type: BLOOD SPECIMENOrdering Facility: [facility] Address: [address] [address] Performed By: #### 5 7021-8 ####[facility] LABCLIA [id number] [place] [address] Immature granulocytes (Bld) [#/Vol] 10*3/uL Normal <0.10 [facility] Comment on above: Order Comment: Speci men Type: BLOOD SPECIMENOrdering Facility: [facility] Address: [address] [place] [address] Performed By: #### 5 7021-8 ####[facility] LABCLIA [id number] [place] [address] Immature granulocytes/100 WBC (Bld) 0.2 % Normal [facility] Comment on above: Order Comment: Speci men Type: BLOOD SPECIMENOrdering Facility: [facility] Address: [address] [place] [address] Performed By: #### 5 7021-8 ####[facility] LABCLIA [id number] [place] [address] Lymphocytes (Bld) [#/Vol] 0.73 10*3/uL Low 1.00-4.00 [facility] Comment on above: Order Comment: Speci men Type: BLOOD SPECIMENOrdering Facility: [facility] Address: [address] [place] [address] Performed By: #### 5 7021-8 ####[facility] LABCLIA [id number] [place] [address] Lymphocytes/100 WBC (Bld) 11.3 % Normal [facility] Comment on above: Order Comment: Speci men Type: BLOOD SPECIMENOrdering Facility: [facility] Address: [address] [place] [address] Performed By: #### 5 7021-8 ####[facility] LABCLIA [id number] [place] [address] MCH (RBC) [Entitic mass] 27.9 pg Normal 26.0-34.0 [facility] Comment on above: Order Comment: Speci men Type: BLOOD SPECIMENOrdering Facility: [facility] Address: [address] [place] [address] Performed By: #### 5 7021-8 ####[facility] LABCLIA [id number] [place] [address] MCHC (RBC) [Mass/Vol] 33.2 g/dL Normal 30.5-36.0 [facility] Comment on above: Order Comment: Speci men Type: BLOOD SPECIMENOrdering Facility: [facility] Address: [address] [place] [address] Performed By: #### 5 7021-8 ####[facility] LABCLIA [id number] [place] [address] MCV (RBC) [Entitic vol] 83.8 fL Normal 80.0-100.0 [facility] Comment on above: Order Comment: Speci men Type: BLOOD SPECIMENOrdering Facility: [facility] Address: [address] [place] [address] Performed By: #### 5 7021-8 ####[facility] LABCLIA [id number] [place] [address] Monocytes (Bld) [#/Vol] 0.55 10*3/uL Normal <0.87 [facility] Comment on above: Order Comment: Speci men Type: BLOOD SPECIMENOrdering Facility: [facility] Address: [address] [place] [address] Performed By: #### 5 7021-8 ####[facility] LABIA [id number] [place] [address] Monocytes/100 WBC (Bld) 8.5 % Normal [facility] Comment on above: Order Comment: Speci men Type: BLOOD SPECIMENOrdering Facility: [facility] Address: [address] [place] [address] Performed By: #### 5 7021-8 ####[facility] LABCLIA [id number] [place] [address] Neutrophils (Bld) [#/Vol] 4.81 10*3/uL Normal 1.45-7.50 [facility] Comment on above: Order Comment: Speci men Type: BLOOD SPECIMENOrdering Facility: [facility] Address: [address] [place] [address] Performed By: #### 5 7021-8 ####[facility] LABCLIA [id number] [place] [address] Neutrophils/100 WBC (Bld) 74.7 % Normal [facility] Comment on above: Order Comment: Speci men Type: BLOOD SPECIMENOrdering Facility: [facility] Address: [address] [place] [address] Performed By: #### 5 7021-8 ####[facility] LABCLIA [id number] [place] [address] Nucleated RBC (Bld) [#/Vol] 10*3/uL Normal <0.01 [facility] Comment on above: Order Comment: Speci men Type: BLOOD SPECIMENOrdering Facility: [facility] Address: [address] [place] [address] Performed By: #### 5 7021-8 ####[facility] LABCLIA [id number] [place] [address] Nucleated RBC/100 WBC (Bld) [Ratio] 0.0 /100 WBC Normal [facility] Comment on above: Order Comment: Speci men Type: BLOOD SPECIMENOrdering Facility: [facility] Address: [address] [place] [address] Performed By: #### 5 7021-8 ####[facility] LABCLIA [id number] [place] [address] Platelet mean volume (Bld) [Entitic vol] 8.9 fL Low 9.0-12.7 [facility] Comment on above: Order Comment: Speci men Type: BLOOD SPECIMENOrdering Facility: [facility] Address: [address] [place] [address] Performed By: #### 5 7021-8 ####[facility] LABCLIA [id number] [place] [address] Platelets (Bld) [#/Vol] 208 10*3/uL Normal 150-400 [facility] Comment on above: Order Comment: Speci men Type: BLOOD SPECIMENOrdering Facility: [facility] Address: [address] [place] [address] Performed By: #### 5 7021-8 ####[facility] LABCLIA [id number] [place] [address] RBC (Bld) [#/Vol] 4.52 10*6/uL Normal 4.20-6.00 [facility] Comment on above: Order Comment: Speci men Type: BLOOD SPECIMENOrdering Facility: [facility] Address: [address] [place] [address] Performed By: #### 5 7021-8 ####[facility] LABIA [id number] [place] [address] WBC (Bld) [#/Vol] 6.44 10*3/uL Normal 3.70-11.00 [facility] Comment on above: Order Comment: Speci men Type: BLOOD SPECIMENOrdering Facility: [facility] Address: [address] [place] [address] Performed By: #### 5 7021-8 ####[facility] LABIA [id number] [place] [address] CNOVSPon 04-25-2023 CNOVSP Normal [facility] Comprehensive metabolic 2000 panelon 04-25-2023 Albumin [Mass/Vol] 4.0 g/dL Normal 3.9-4.9 [facility] Comment on above: Order Comment: Speci men Type: BLOOD SPECIMENOrdering Facility: External Submitter Address: , , Performed By: #### 2 4323-8 ####[facility] LABCLIA [id number] [place] [address] ALP [Catalytic activity/Vol] 75 U/L Normal 38-113 [facility] Comment on above: Order Comment: Speci men Type: BLOOD SPECIMENOrdering Facility: External Submitter Address: , , Performed By: #### 2 4323-8 ####[facility] LABCLIA [id number] [place] [address] ALT [Catalytic activity/Vol] 17 U/L Normal 10-54 [facility] Comment on above: Order Comment: Speci men Type: BLOOD SPECIMENOrdering Facility: External Submitter Address: , , Performed By: #### 2 4323-8 ####[facility] LABCLIA [id number] [place] [address] Anion gap [Moles/Vol] 7 mmol/L Low 9-18 [facility] Comment on above: Order Comment: Speci men Type: BLOOD SPECIMENOrdering Facility: External Submitter Address: , , Performed By: #### 2 4323-8 ####[facility] LABCLIA [id number] [place] [address] AST [Catalytic activity/Vol] 26 U/L Normal 14-40 [facility] Comment on above: Order Comment: Speci men Type: BLOOD SPECIMENOrdering Facility: External Submitter Address: , , Performed By: #### 2 4323-8 ####[facility] LABCLIA [id number] [place] [address] Bilirubin [Mass/Vol] 0.4 mg/dL Normal 0.2-1.[address] [facility] Comment on above: Order Comment: Speci men Type: BLOOD SPECIMENOrdering Facility: External Submitter Address: , , Performed By: #### 2 4323-8 ####[facility] LABCLIA [id number] [place] [address] Calcium [Mass/Vol] 8.9 mg/dL Normal 8.5-10.2 [facility] Comment on above: Order Comment: Speci men Type: BLOOD SPECIMENOrdering Facility: External Submitter Address: , , Performed By: #### 2 4323-8 ####[facility] LABIA [id number] [place] [address] Chloride [Moles/Vol] 106 mmol/L High 97-[address] [facility] Comment on above: Order Comment: Speci men Type: BLOOD SPECIMENOrdering Facility: External Submitter Address: , , Performed By: #### 2 4323-8 ####[facility] LABIA [id number] [place] [address] CO2 [Moles/Vol] 26 mmol/L Normal 22-30 [facility] Comment on above: Order Comment: Speci men Type: BLOOD SPECIMENOrdering Facility: External Submitter Address: , , Performed By: #### 2 4323-8 ####[facility] LABIA [id number] [place] [address] Creatinine [Mass/Vol] 1.71 mg/dL High 0.73-1.22 [facility] Comment on above: Order Comment: Speci men Type: BLOOD SPECIMENOrdering Facility: External Submitter Address: , , Performed By: #### 2 4323-8 ####[facility] LABIA [id number] [place] [address] ESTIMATED GLOMERULAR FILTRATION RATE 39 mL/min/1.73m??? Low >=60 [facility] Comment on above: Order Comment: Speci men Type: BLOOD SPECIMENOrdering Facility: External Submitter Address: , , Result Comment: Viviana mated Glomerular Filtration Rate (eGFR) is calculated using the 2020 CKD-EPI creatinine equation. This equation utilizes serum creatinine, sex, and age as parameters. The creatinine assay has traceable calibration to isotope dilution-mass spectrometry. Refer to KDIGO guidelines for clinical interpretation. In patients with unstable renal function, e.g. those with acute kidney injury, the eGFR may not accurately reflect actual GFR. Performed By: #### 2 4323-8 ####[facility] LABCLIA [id number] [place] [address] Glucose [Mass/Vol] 111 mg/dL High 74-99 [facility] Comment on above: Order Comment: Speci men Type: BLOOD SPECIMENOrdering Facility: External Submitter Address: , , Result Comment: The [place] Diabetes Association (ADA) provides guidance for cutoff values for fasting glucose and random glucose. The ADA defines fasting as no caloric intake for at least 8 hours. Fasting plasma glucose results between 100 to 125 mg/dL indicate increased risk for diabetes (prediabetes).Fasting plasma glucose results greater than or equal to 126 mg/dL meet the criteria for diagnosis of diabetes. In the absence of unequivocal hyperglycemia, results should be confirmed by repeat testing. In a patient with classic symptoms of hyperglycemia or hyperglycemic crisis, random plasma glucose results greater than or equal to 200 mg/dL meet the criteria for diagnosis of diabetes.Reference: Standards of Medical Care in Diabetes 2016, [place] [employer]. Diabetes Care. 2016.39(Suppl 1). Performed By: #### 2 4323-8 ####[facility] LABIA [id number] [place] [address] Potassium [Moles/Vol] 3.9 mmol/L Normal 3.7-5.1 [facility] Comment on above: Order Comment: Speci men Type: BLOOD SPECIMENOrdering Facility: External Submitter Address: , , Performed By: #### 2 4323-8 ####[facility] LABCLIA [id number] [place] [address] Protein [Mass/Vol] 6.0 g/dL Low 6.3-8.0 [facility] Comment on above: Order Comment: Vero barton Type: BLOOD SPECIMENOrdering Facility: External Submitter Address: , , Performed By: #### 2 4323-8 ####[facility] LABCLIA [id number] [place] [address] Sodium [Moles/Vol] 139 mmol/L Normal 136-144 [facility] Comment on above: Order Comment: Speci men Type: BLOOD SPECIMENOrdering Facility: External Submitter Address: , , Performed By: #### 2 4323-8 ####[facility] LABCLIA [id number] [place] [address] Urea nitrogen [Mass/Vol] 27 mg/dL High 9-24 [facility] Comment on above: Order Comment: Speci men Type: BLOOD SPECIMENOrdering Facility: External Submitter Address: , , Performed By: #### 2 4323-8 ####[facility] LABCLIA [id number] [place] [address] Beverly ChewBao 04-25-20 23 Cortisol [Mass/Vol] 8.8 ug/dL Normal 4.8-19.5 [facility] Comment on above: Order Comment: Speci men Type: BLOOD SPECIMENOrdering Facility: External Submitter Address: , , Result Comment: Prov ided reference range is from 6-10 AM sample collection time.Cortisol Reference Range: 6-10 AM = 4.8-19.5 ug/dL, 4-8 PM = 2.5-11.9 ug/dL Performed By: #### 3 024-7, 3053-6, 3016-3, 2143-6 ####[facility] LABCLIA [id number] [address] [facility] HbA1c (Bld)on 04-25-2023 Average glucose Estimated from glycated hemoglobin (Bld) [Mass/Vol] 97 mg/dL Normal [facility] Comment on above: Order Comment: Vero oralia Type: BLOOD SPECIMENOrdering Facility: [facility] Address: [address] [id number] Result Comment: eAG: (Estimated average glucose) is a calculated value from HgbA1c and is patient financial representative of the average blood glucose level in the last 2-3 month period. Performed By: #### 5 5454-3 ####[facility] LABIA [id number] [place] [address] [place] HbA1c (Bld) [Mass fraction] 5.0 % Normal 4.3-5.6 [facility] Comment on above: Order Comment: Speci men Type: BLOOD SPECIMENOrdering Facility: [facility] Address: [address] [place] [address] Result Comment: [place] Diabetes Association guidelines indicate that patients with HgbA1c in the range 5.7-6.4% are at increased risk for development of diabetes, and intervention by lifestyle modification may be beneficial. HgbA1c greater or equal to 6.5% is considered diagnostic of diabetes. Performed By: #### 5 5454-3 ####[facility] [id number] [place] [address] [place] T3 SerPl-mCncon 04-25-2023 T3 [Mass/Vol] 99 ng/dL Normal 79-165 [facility] Comment on above: Order Comment: Speci men Type: BLOOD SPECIMENOrdering Facility: External Submitter Address: , , Performed By: #### 3 024-7, 3053-6, 3016-3, 2143-03 ####[facility] [id number] [address] [place] T4 Free SerPl-mCncon 023 Free T4 [Mass/Vol] 1.1 ng/dL Normal 0.9-1.7 [facility] Comment on above: Order Comment: Speci men Type: BLOOD SPECIMENOrdering Facility: External Submitter Address: , , Performed By: #### 3 024-7, 3053-6, 3016-3, 2143-03 ####[facility] LABIA [id number] [place] [address] [place] TSH SerPl-aCncon 04-25-2023 TSH Qn 2.800 m[IU]/L Normal 0.270-4.200 [facility] Comment on above: Order Comment: Speci men Type: BLOOD SPECIMENOrdering Facility: External Submitter Address: , , Performed By: #### 3 024-7, 3053-6, 3016-3, 2143-6 ####[facility] LABCLIA [id number] MALLORYMarisabel [facility] [id number] [place] CBC W Auto Differential pane l (Bld)on 04-04-2023 Basophils (Bld) [#/Vol] 0.06 10*3/uL Normal <0.11 [facility] Comment on above: Order Comment: Speci men Type: BLOOD SPECIMENOrdering Facility: [facility] Address: [address] [address] Performed By: #### 5 7021-8 ####[facility] LABCLIA [id number] [place] [address] Basophils/100 WBC (Bld) 0.9 % Normal [facility] Comment on above: Order Comment: Speci men Type: BLOOD SPECIMENOrdering Facility: [facility] Address: [address] [address] Performed By: #### 5 7021-8 ####[facility] LABCLIA [id number] [place] [address] Differential cell count method Nom (Bld) Auto Normal [facility] Comment on above: Order Comment: Speci men Type: BLOOD SPECIMENOrdering Facility: [facility] Address: [address] [address] Performed By: #### 5 7021-8 ####[facility] LABCLIA [id number] [place] [address] Eosinophils (Bld) [#/Vol] 0.32 10*3/uL Normal <0.46 [facility] Comment on above: Order Comment: Speci men Type: BLOOD SPECIMENOrdering Facility: [facility] Address: [address] [address] Performed By: #### 5 7021-8 ####[facility] LABCLIA [id number] [place] [address] Eosinophils/100 WBC (Bld) 4.8 % Normal [facility] Comment on above: Order Comment: Speci men Type: BLOOD SPECIMENOrdering Facility: [facility] Address: [address] [place] [address] Performed By: #### 5 7021-8 ####[facility] LABCLIA [id number] [place] [address] Erythrocyte distribution width (RBC) [Ratio] 15.8 % High 11.5-15.0 [facility] Comment on above: Order Comment: Speci men Type: BLOOD SPECIMENOrdering Facility: [facility] Address: [address] [place] [address] Performed By: #### 5 7021-8 ####[facility] LABIA [id number] [place] [address] Hematocrit (Bld) [Volume fraction] 38.8 % Low 39.0-51.0 [facility] Comment on above: Order Comment: Speci men Type: BLOOD SPECIMENOrdering Facility: [facility] Address: [address] [place] [address] Performed By: #### 5 7021-8 ####[facility] LABCLIA [id number] [place] [address] Hemoglobin (Bld) [Mass/Vol] 12.8 g/dL Low 13.0-17.0 [facility] Comment on above: Order Comment: Speci men Type: BLOOD SPECIMENOrdering Facility: [facility] Address: [address] [place] [address] Performed By: #### 5 7021-8 ####[facility] LABIA [id number] [place] [address] Immature granulocytes (Bld) [#/Vol] 0.03 10*3/uL Normal <0.10 [facility] Comment on above: Order Comment: Speci men Type: BLOOD SPECIMENOrdering Facility: [facility] Address: [address] [place] [address] Performed By: #### 5 7021-8 ####[facility] LABCLIA [id number] [place] [address] Immature granulocytes/100 WBC (Bld) 0.5 % Normal [facility] Comment on above: Order Comment: Speci men Type: BLOOD SPECIMENOrdering Facility: [facility] Address: [address] [place] [address] Performed By: #### 5 7021-8 ####[facility] LABIA [id number] [place] [address] Lymphocytes (Bld) [#/Vol] 0.85 10*3/uL Low 1.00-4.00 [facility] Comment on above: Order Comment: Speci men Type: BLOOD SPECIMENOrdering Facility: [facility] Address: [address] [place] [address] Performed By: #### 5 7021-8 ####[facility] LABIA [id number] [place] [address] Lymphocytes/100 WBC (Bld) 12.8 % Normal [facility] Comment on above: Order Comment: Speci men Type: BLOOD SPECIMENOrdering Facility: [facility] Address: [address] [place] [address] Performed By: #### 5 7021-8 ####[facility] LABCLIA [id number] [place] [address] MCH (RBC) [Entitic mass] 27.8 pg Normal 26.0-34.0 [facility] Comment on above: Order Comment: Speci men Type: BLOOD SPECIMENOrdering Facility: [facility] Address: [address] [place] [address] Performed By: #### 5 7021-8 ####[facility] LABIA [id number] [place] [address] MCHC (RBC) [Mass/Vol] 33.0 g/dL Normal 30.5-36.0 [facility] Comment on above: Order Comment: Speci men Type: BLOOD SPECIMENOrdering Facility: [facility] Address: [address] [place] [address] Performed By: #### 5 7021-8 ####[facility] LABCLIA [id number] [place] [address] MCV (RBC) [Entitic vol] 84.2 fL Normal 80.0-100.0 [facility] Comment on above: Order Comment: Speci men Type: BLOOD SPECIMENOrdering Facility: [facility] Address: [address] [place] [address] Performed By: #### 5 7021-8 ####[facility] LABCLIA [id number] [place] [address] Monocytes (Bld) [#/Vol] 0.48 10*3/uL Normal <0.87 [facility] Comment on above: Order Comment: Speci men Type: BLOOD SPECIMENOrdering Facility: [facility] Address: [address] [place] [address] Performed By: #### 5 7021-8 ####[facility] LABCLIA [id number] [place] [address] Monocytes/100 WBC (Bld) 7.3 % Normal [facility] Comment on above: Order Comment: Speci men Type: BLOOD SPECIMENOrdering Facility: [facility] Address: [address] [place] [address] Performed By: #### 5 7021-8 ####[facility] LABCLIA [id number] [place] [address] Neutrophils (Bld) [#/Vol] 4.88 10*3/uL Normal 1.45-7.50 [facility] Comment on above: Order Comment: Speci men Type: BLOOD SPECIMENOrdering Facility: [facility] Address: [address] [address] Performed By: #### 5 7021-8 ####[facility] LABCLIA [id number] [place] [address] Neutrophils/100 WBC (Bld) 73.7 % Normal [facility] Comment on above: Order Comment: Speci men Type: BLOOD SPECIMENOrdering Facility: [facility] Address: [address] [place] [address] Performed By: #### 5 7021-8 ####[facility] LABCLIA [id number] [place] [address] Nucleated RBC (Bld) [#/Vol] 10*3/uL Normal <0.01 [facility] Comment on above: Order Comment: Speci men Type: BLOOD SPECIMENOrdering Facility: [facility] Address: [address] [place] [address] Performed By: #### 5 7021-8 ####[facility] LABCLIA [id number] [place] [address] Nucleated RBC/100 WBC (Bld) [Ratio] 0.0 /100 WBC Normal [facility] Comment on above: Order Comment: Speci men Type: BLOOD SPECIMENOrdering Facility: [facility] Address: [address] [place] [address] Performed By: #### 5 7021-8 ####[facility] LABCLIA [id number] [place] [address] Platelet mean volume (Bld) [Entitic vol] 8.8 fL Low 9.0-12.7 [facility] Comment on above: Order Comment: Speci men Type: BLOOD SPECIMENOrdering Facility: [facility] Address: [address] [place] [address] Performed By: #### 5 7021-8 ####[facility] LABCLIA [id number] [place] [address] Platelets (Bld) [#/Vol] 213 10*3/uL Normal 150-400 [facility] Comment on above: Order Comment: Speci men Type: BLOOD SPECIMENOrdering Facility: [facility] Address: [address] [place] [address] Performed By: #### 5 7021-8 ####[facility] LABCLIA [id number] [place] [address] RBC (Bld) [#/Vol] 4.61 10*6/uL Normal 4.20-6.00 [facility] Comment on above: Order Comment: Speci men Type: BLOOD SPECIMENOrdering Facility: [facility] Address: [address] [place] [address] Performed By: #### 5 7021-8 ####[facility] LABIA [id number] [place] [address] WBC (Bld) [#/Vol] 6.62 10*3/uL Normal 3.70-11.00 [facility] Comment on above: Order Comment: Speci men Type: BLOOD SPECIMENOrdering Facility: [facility] Address: [address] [place] [address] Performed By: #### 5 7021-8 ####[facility] LABIA [id number] [place] [address] CNOVSPon 04-04-2023 CNOVSP Normal [facility] Comprehensive metabolic 2000 panelon 04-04-2023 Albumin [Mass/Vol] 4.4 g/dL Normal 3.9-4.9 [facility] Comment on above: Order Comment: Speci men Type: BLOOD SPECIMENOrdering Facility: [facility] Address: [address] [place] [address] Performed By: #### 2 4323-8 ####[facility] LABIA [id number] [place] [address] ALP [Catalytic activity/Vol] 64 U/L Normal 38-113 [facility] Comment on above: Order Comment: Speci men Type: BLOOD SPECIMENOrdering Facility: [facility] Address: [address] [address] Performed By: #### 2 4323-8 ####[facility] LABCLIA [id number] [place] [address] ALT [Catalytic activity/Vol] 13 U/L Normal 10-54 [facility] Comment on above: Order Comment: Speci men Type: BLOOD SPECIMENOrdering Facility: [facility] Address: [address] [address] Performed By: #### 2 4323-8 ####[facility] LABCLIA [id number] [place] [address] Anion gap [Moles/Vol] 10 mmol/L Normal 9-18 [facility] Comment on above: Order Comment: Speci men Type: BLOOD SPECIMENOrdering Facility: [facility] Address: [address] [place] [address] Performed By: #### 2 4323-8 ####[facility] LABCLIA [id number] [place] [address] AST [Catalytic activity/Vol] 23 U/L Normal 14-40 [facility] Comment on above: Order Comment: Speci men Type: BLOOD SPECIMENOrdering Facility: [facility] Address: [address] [address] Performed By: #### 2 4323-8 ####[facility] LABCLIA [id number] [place] [address] Bilirubin [Mass/Vol] 0.5 mg/dL Normal 0.2-1.[address] [facility] Comment on above: Order Comment: Speci men Type: BLOOD SPECIMENOrdering Facility: [facility] Address: [address] [place] [address] Performed By: #### 2 4323-8 ####[facility] LABCLIA [id number] [place] [address] Calcium [Mass/Vol] 9.3 mg/dL Normal 8.5-10.2 [facility] Comment on above: Order Comment: Speci men Type: BLOOD SPECIMENOrdering Facility: [facility] Address: [address] [address] Performed By: #### 2 4323-8 ####[facility] LABCLIA [id number] [place] [address] Chloride [Moles/Vol] 104 mmol/L Normal 97-[address] [facility] Comment on above: Order Comment: Speci men Type: BLOOD SPECIMENOrdering Facility: [facility] Address: [address] [place] [address] Performed By: #### 2 4323-8 ####[facility] LABCLIA [id number] [place] [address] CO2 [Moles/Vol] 26 mmol/L Normal 22-30 [facility] Comment on above: Order Comment: Speci men Type: BLOOD SPECIMENOrdering Facility: [facility] Address: [address] [place] [address] Performed By: #### 2 4323-8 ####[facility] LABCLIA [id number] [place] [address] Creatinine [Mass/Vol] 2.05 mg/dL High 0.73-1.22 [facility] Comment on above: Order Comment: Speci men Type: BLOOD SPECIMENOrdering Facility: [facility] Address: [address] [place] [address] Performed By: #### 2 4323-8 ####[facility] LABCLIA [id number] [place] [address] ESTIMATED GLOMERULAR FILTRATION RATE 32 mL/min/1.73m??? Low >=60 [facility] Comment on above: Order Comment: Speci men Type: BLOOD SPECIMENOrdering Facility: [facility] Address: [address] [place] [address] Result Comment: Viviana mated Glomerular Filtration Rate (eGFR) is calculated using the 2020 CKD-EPI creatinine equation. This equation utilizes serum creatinine, sex, and age as parameters. The creatinine assay has traceable calibration to isotope dilution-mass spectrometry. Refer to KDIGO guidelines for clinical interpretation. In patients with unstable renal function, e.g. those with acute kidney injury, the eGFR may not accurately reflect actual GFR. Performed By: #### 2 4323-8 ####[facility] LABCLIA [id number] [place] [address] Glucose [Mass/Vol] 127 mg/dL High 74-99 [facility] Comment on above: Order Comment: Specronnie barton Type: BLOOD SPECIMENOrdering Facility: [facility] Address: [address] [place], [place] [id number] Result Comment: The [place] Diabetes Association (ADA) provides guidance for cutoff values for fasting glucose and random glucose. The ADA defines fasting as no caloric intake for at least 8 hours. Fasting plasma glucose results between 100 to 125 mg/dL indicate increased risk for diabetes (prediabetes).Fasting plasma glucose results greater than or equal to 126 mg/dL meet the criteria for diagnosis of diabetes. In the absence of unequivocal hyperglycemia, results should be confirmed by repeat testing. In a patient with classic symptoms of hyperglycemia or hyperglycemic crisis, random plasma glucose results greater than or equal to 200 mg/dL meet the criteria for diagnosis of diabetes.Reference: Standards of Medical Care in Diabetes 2016, [place] Diabetes Association. Diabetes Care. 2016.39(Suppl 1). Performed By: #### 2 4323-8 ####[facility] LABCLIA [id number] [place] [address] Potassium [Moles/Vol] 3.9 mmol/L Normal 3.7-5.1 [facility] Comment on above: Order Comment: Vero barton Type: BLOOD SPECIMENOrdering Facility: [facility] Address: [address] [place] [id number] Performed By: #### 2 4323-8 ####[facility] LABCLIA [id number] [place] [address] Protein [Mass/Vol] 6.3 g/dL Normal 6.3-8.0 [facility] Comment on above: Order Comment: Speci men Type: BLOOD SPECIMENOrdering Facility: [facility] Address: [address] [address] Performed By: #### 2 4323-8 ####[facility] LABCLIA [id number] [place] [address] Sodium [Moles/Vol] 140 mmol/L Normal 136-144 [facility] Comment on above: Order Comment: Speci men Type: BLOOD SPECIMENOrdering Facility: [facility] Address: [address] [place] [address] Performed By: #### 2 4323-8 ####[facility] LABCLIA [id number] [place] [address] Urea nitrogen [Mass/Vol] 26 mg/dL High 9-24 [facility] Comment on above: Order Comment: Speci men Type: BLOOD SPECIMENOrdering Facility: [facility] Address: [address] [address] Performed By: #### 2 4323-8 ####[facility] LABCLIA [id number] [place] [address] Beverly Keisha-Celena 04-04-20 23 Cortisol [Mass/Vol] 9.9 ug/dL Normal 4.8-19.5 [facility] Comment on above: Order Comment: Speci men Type: BLOOD SPECIMENOrdering Facility: [facility] Address: [address] [place] [address] Result Comment: Prov ided reference range is from 6-10 AM sample collection time.Cortisol Reference Range: 6-10 AM = 4.8-19.5 ug/dL, 4-8 PM = 2.5-11.9 ug/dL Performed By: #### 3 016-3, 2143-6 ####[facility] LABCLIA [id number] [facility] [id number] [place] HbA1c (Bld)on 04-04-2023 Average glucose Estimated from glycated hemoglobin (Bld) [Mass/Vol] 100 mg/dL Normal [facility] Comment on above: Order Comment: Vero abrton Type: BLOOD SPECIMENOrdering Facility: [facility] Address: [address] [place] [address] Result Comment: eAG: (Estimated average glucose) is a calculated value from HgbA1c and is patient financial representative of the average blood glucose level in the last 2-3 month period. Performed By: #### 5 5454-3 ####[facility] LABIA [id number] [place] [address] [place] HbA1c (Bld) [Mass fraction] 5.1 % Normal 4.3-5.6 [facility] Comment on above: Order Comment: Vero barton Type: BLOOD SPECIMENOrdering Facility: [facility] Address: [address] [place] [address] Result Comment: [place] Diabetes Association guidelines indicate that patients with HgbA1c in the range 5.7-6.4% are at increased risk for development of diabetes, and intervention by lifestyle modification may be beneficial. HgbA1c greater or equal to 6.5% is considered diagnostic of diabetes. Performed By: #### 5 5454-3 ####[facility] LABIA [id number] [address] [place] TSH SerPl-aCncon 04-04-2023 TSH Qn 2.620 m[IU]/L Normal 0.270-4.200 [facility] Comment on above: Order Comment: Vero barton Type: BLOOD SPECIMENOrdering Facility: [facility] Address: [address] [place] [address] Performed By: #### 3 016-3, 2143-6 ####[facility] LABIA [id number] [address] [place] EDNURSon 03-27-2023 EDNURS Mode of arrival (squad #, walk in, police, etc): [facility] Chief complaint(s): Dizziness Arrival Note (brief scenario, treatment ADMINISTRATIVE ASSISTANT, etc): pt had a pacemaker placed at [facility] 11 days ago. Pt got up from the dinner table to put his plate in the sink when he felt dizzy. When pt sat down, it resolved. He got up again with the same dizziness. It went away as he was getting in the vehicle to go to the ER in [place]. Pt denies any other symptoms since. Orthostatics were negative at [facility]. GCS 15 Normal [facility] EDPROVon 03-27-2023 EDPROV HPI Chief Complaint Patient presents with ??? Dizziness patient is an 82-year-old male with past medical history of atrial flutter, left bundle branch block, bradycardia status post pacemaker placement, hypertension, systolic heart failure presents to ED with transient episode of lightheadedness. yesterday evening patient was getting up from kitchen table and upon standing became increasing lightheaded. at the time patient denies any chest pain, shortness breath, diaphoresis, palpitations, syncope, nausea, vomiting, fevers, chills. Patient was sent to ED for further evaluation with family and also reported having lightheadedness during the car ride. Patient was evaluated in the emergency department at [facility] where full cardiac work-up was performed. Patient was noted to have mild elevation of his troponin. No changes on EKG. Patient was to have pacemaker interrogated by [employer] however patient financial representative was not available at that time and remote monitoring service was down. Patient transferred here for further evaluation. At this time patient says he feels fine does not have any complaints at this time. Yao Coma Scale Score: 15 Patient History Past Medical History: Diagnosis Date ??? Atrial flutter (CMS/HCC) ??? Cancer (CMS/HCC) ??? Chronic systolic heart failure (CMS/HCC) ??? CKD (chronic kidney disease), stage III (CMS/HCC) ??? Hematuria ??? Hypertension ??? LBBB (left bundle branch block) Past Surgical History: Procedure Laterality Date ??? BACK SURGERY ??? NEPHRECTOMY Family History Problem Relation Name Age of Onset ??? Heart failure Mother Social History Tobacco Use ??? Smoking status: Former Types: Cigarettes ??? Smokeless tobacco: Never Substance Use Topics ??? Alcohol use: Not Currently ??? Drug use: Not on file Review of Systems Review of Systems Constitutional: Negative for chills and fever. HENT: Negative for ear pain and sore throat. Eyes: Negative for pain and visual disturbance. Respiratory: Negative for cough and shortness of breath. Cardiovascular: Negative for chest pain and palpitations. Gastrointestinal: Negative for abdominal pain and vomiting. Genitourinary: Negative for dysuria and hematuria. Musculoskeletal: Negative for arthralgias and back pain. Skin: Negative for color change and rash. Neurological: Positive for light-headedness. Negative for seizures, syncope, facial asymmetry, numbness and headaches. All other systems reviewed and are negative. Physical Exam ED Triage Vitals [03/27/23 0224] Temp Heart Rate Resp BP 36.7 ???C (98.1 ???F) 63 18 169/75 SpO2 Temp Source Heart Rate Source Patient Position 96 % Oral -- -- BP Location FiO2 (%) -- -- Physical Exam Vitals and nursing note reviewed. Constitutional: Appearance: Normal appearance. He is well-developed. HENT: Head: Normocephalic and atraumatic. Mouth/Throat: Mouth: Mucous membranes are moist. Pharynx: No oropharyngeal exudate or posterior oropharyngeal erythema. Eyes: Conjunctiva/sclera: Conjunctivae normal. Cardiovascular: Rate and Rhythm: Normal rate and regular rhythm. Heart sounds: No murmur heard. Pulmonary: Effort: Pulmonary effort is normal. No respiratory distress. Breath sounds: Normal breath sounds. Abdominal: Palpations: Abdomen is soft. Tenderness: There is no abdominal tenderness. Musculoskeletal: Cervical back: Normal range of motion and neck supple. Skin: General: Skin is warm and dry. Neurological: Mental Status: He is alert. Procedures ED Course & MDM ED Course as of 03/27/23 0431 SatMar 27, 2023 0334 Review of patient's medical records from [place] shows EKG which demonstrates left bundle branch block. No changes when compared to previous. Laboratory evaluation including CBC showed BUN of 32 with creatinine 1.95. Patient's calcium was 9.0 and potassium noted to be 9. Sodium 134. Normal liver enzymes. CBC unremarkable for any significant findings. Hemoglobin 13.5. Magnesium noted to be 1.9. Urinalysis negative for ketones or UTI. [NF] 0336 Repeat troponin noted to be mildly elevated 0.07. In the absence of chest pain or shortness of breath we will continue with plan to perform interrogation of device and consult cardiology for further recommendations. At this time differentials include unlikely arrhythmia or bradycardia, dehydration, or orthostatic [NF] 4247 spoke to [employer] who interrogated device. 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 No signs of any arrhythmias or bradycardic episodes. Device working appropriately. At this time patient's in no acute distress says he feels fine. Troponin was repeated as initial troponin was noted to be mildly elevated. Repeat noted to be 0.07. Will consult cardiology for further recommendations [NF] [address] to lap winder Dr. Roach. Reviewed patient's initial presentation (more content not included)... Normal [facility] Office Visiton 03-27-2023 Follow-up visit [id number] Juan Jose Austin 1940 M Date Provider Department Center 03/27/2023 [id number] JAMES CARD Tamiko [facility] Family History Problem Relation Age of Onset Heart failure Mother Family Status - Relation Status Age at Mother Level of Service:84002 MS POSTOP FOLLOW UP VISIT RELATED TO ORIGINAL PX Normal [facility] TROPONIN Ion 03-27-2023 Troponin I.cardiac [Mass/Vol] 0.07 ng/mL High 0.00-0.04 [facility] Comment on above: Performed By: #### L AB747 ####[facility])[address] [place] [address] 30on 03-19-2023 30 The patient is Moderately Stable - Low risk of patient condition declining or worsening The patient's goals for the shift include comfort and rest The clinical goals for the shift include stable vitals Over the shift, the patient did make progress toward the following goals. Problem: Pain - Adult Goal: Verbalizes/displays adequate comfort level or baseline comfort level Outcome: Progressing Problem: Safety - Adult Goal: Free from fall injury Outcome: Progressing Flowsheets (Taken 03/19/2023 0900) Free from fall injury: Assess patient frequently for physical needs Identify cognitive and physical deficits and behaviors that affect risk of falls [place] fall precautions as indicated by assessment Educate patient/family on patient safety, including physical limitations Instruct patient to call for assistance with activity based on assessment Modify environment to reduce risk of injury Problem: Discharge Planning Goal: Discharge to home or other facility with appropriate resources Outcome: Progressing Flowsheets (Taken 03/19/2023936) Discharge to home or other facility with appropriate resources: Identify barriers to discharge with patient and caregiver Arrange for needed discharge resources and transportation as appropriate Identify discharge learning needs (meds, wound care, etc) Problem: Chronic Conditions and Co-morbidities Goal: Patient's chronic conditions and co-morbidity symptoms are monitored and maintained or improved Outcome: Progressing Flowsheets (Taken 03/19/2023936) Care Plan - Patient's Chronic Conditions and Co-Morbidity Symptoms are Monitored and Maintained or Improved: Monitor and assess patient's chronic conditions and comorbid symptoms for stability, deterioration, or improvement Collaborate with multidisciplinary team to address chronic and comorbid conditions and prevent exacerbation or deterioration Update acute care plan with appropriate goals if chronic or comorbid symptoms are exacerbated and prevent overall improvement and discharge Normal [facility] 30 Problem: Pain - Adul t Goal: Verbalizes/displays adequate comfort level or baseline comfort level Outcome: Progressing Problem: Safety - Adult Goal: Free from fall injury Outcome: Progressing Problem: Discharge Planning Goal: Discharge to home or other facility with appropriate resources Outcome: Progressing Problem: Chronic Conditions and Co-morbidities Goal: Patient's chronic conditions and co-morbidity symptoms are monitored and maintained or improved Outcome: Progressing The patient is Moderately Stable - Low risk of patient condition declining or worsening The patient's goals for the shift include comfort and rest The clinical goals for the shift include stable vitals Over the shift, the patient continued to make progress toward the following goals. Normal [facility] BASIC METABOLIC PANELon 06-0 Anion gap [Moles/Vol] 9 mmol/L Normal 7-20 [facility] Comment on above: Performed By: #### L AB15 ####[facility] [place] [address] Calcium [Mass/Vol] 8.7 mg/dL Normal 8.6-10.3 [facility] Comment on above: Performed By: #### L AB15 ####[facility] [place] [address] Chloride [Moles/Vol] 111 mmol/L High 98-107 [facility] Comment on above: Performed By: #### L AB15 ####[facility] ([facility])[address] [place] [address] CO2 [Moles/Vol] 24 mmol/L Normal 21-31 [facility] Comment on above: Performed By: #### L AB15 ####[facility] ([facility])[address] [place] [address] Creatinine [Mass/Vol] 1.95 mg/dL High 0.70-1.30 [facility] Comment on above: Performed By: #### L AB15 ####[facility] ([facility])[address] [place] [address] GLOMERULAR FILTRATION RATE ML/MIN/1.73 SQ M.PREDICTED 33.5 mL/min/1.73m*2 Low >60.0 [facility] Comment on above: Result Comment: The [facility]???s estimated glomerular filtration rate (eGFR) will no longer include consideration of race in its calculation. The National Kidney Foundation???s eGFR Task Force developed new recommendations for the estimation of the glomerular filtration rate in the [place] They recommend immediate implementation of the new equation refit without the race variable in all laboratories because the calculation does not include race. In addition to not including race in the calculation and reporting, it included diversity in its development, and has acceptable performance characteristics and potential consequences that do not disproportionately affect any one group of individuals. Performed By: #### L AB15 ####[facility] ([facility])[address] [place] [address] Glucose [Mass/Vol] 111 mg/dL High 70-100 [facility] Comment on above: Performed By: #### L AB15 ####[facility] ([facility])[address] [place] [address] Potassium [Moles/Vol] 4.2 mmol/L Normal 3.5-5.1 [facility] Comment on above: Performed By: #### L AB15 ####[facility] [place] [address] Sodium [Moles/Vol] 140 mmol/L Normal 136-145 [facility] Comment on above: Performed By: #### L AB15 ####[facility] [place] [address] Urea nitrogen [Mass/Vol] 36 mg/dL High 7-25 [facility] Comment on above: Performed By: #### L AB15 ####[facility])[address] [place] [address] UREA NITROGEN/CREATININE (MASS RATIO) IN SER/PLAS 18.5 Normal [facility] Comment on above: Performed By: #### L AB15 ####[facility] [place] [address] CBCon 03-19-2023 Erythrocyte distribution width (RBC) [Ratio] 14.8 % Normal 11.5-15.0 [facility] Comment on above: Performed By: #### L AB294 ####[facility] [place] [address] ERYTHROCYTE MEAN CORPUSCULAR HEMOGLOBIN CONCENTRATION (G/DL) BY AUTOMATED 33.9 g/dL Normal 32.0-35.0 [facility] Comment on above: Performed By: #### L AB294 ####[facility] ([facility] [place], [place] [address] Hematocrit (Bld) [Volume fraction] 34.8 % Low 39.0-55.0 [facility] Comment on above: Performed By: #### L AB294 ####[facility] [place] [address] Hemoglobin (Bld) [Mass/Vol] 11.8 g/dL Low 13.0-17.0 [facility] Comment on above: Performed By: #### L AB294 ####[facility])[address] [place] [address] [facility] (RBC) [Entitic mass] 27.9 pg Normal 27.0-33.0 [facility] Comment on above: Performed By: #### L [id number] ####[facility] ([facility])[address] [place] [address] MCV (RBC) [Entitic vol] 82.3 fL Normal 82.0-98.0 [facility] Comment on above: Performed By: #### L [id number] ####[facility] ([facility])[address] [place] [address] PLATELETS (10*3/UL) IN BLOOD AUTOMATED COUNT 180 10*3/uL Normal 150-400 [facility] Comment on above: Performed By: #### L [id number] ####[facility] ([facility])[address] [place] [address] RBC (Bld) [#/Vol] 4.23 10*6/uL Normal 4.20-5.70 [facility] Comment on above: Performed By: #### L [id number] ####[facility] ([facility])[address] [place] [address] WBC (Bld) [#/Vol] 6.85 10*3/uL Normal 4.00-10.60 [facility] Comment on above: Performed By: #### L [id number] ####[facility] ([facility])[address] [place] [address] NURSNOTEon 03-19-2023 NURSNOTE Pt discharged home with junior by car. Normal [facility] 30on 03-18-2023 30 Daily Case Managemen t Update Multidisciplinary rounds have been completed. Barriers to Discharge: 03/18 status post pacemaker placement today. Follow-up on echo today. Elevated troponin likely secondary demand. from home Diet: Dietary Orders (From admission, onward) Start Ordered 03/18/23 1040 Regular Diet Diet effective now Question: Room Service? Answer: Yes 03/18/23 1040 Physician Expected Discharge Date: 03/19/2023 Discharge Delays: PT Six Click Score: OT Six Click Score: PT Recommendations: OT Recommendations: New Consults: Therapy Orders (From admission, onward) Start Ordered 03/18/23 1109 PT eval and treat Until therapy completed Question: Reason for PT? Answer: weakness 03/18/23 1108 03/18/23 1109 OT eval and treat Until therapy completed Question: Reason for OT? Answer: weakness 03/18/23 1108 [facility] 30 The patient is Moderately Stable - Low risk of patient condition declining or worsening The patient's goals for the shift include comfort and rest The clinical goals for the shift include monitor vitals [facility] 30 Problem: Pain - Adul t Goal: Verbalizes/displays adequate comfort level or baseline comfort level Outcome: Progressing Problem: Safety - Adult Goal: Free from fall injury Outcome: Progressing Problem: Discharge Planning Goal: Discharge to home or other facility with appropriate resources Outcome: Progressing Problem: Chronic Conditions and Co-morbidities Goal: Patient's chronic conditions and co-morbidity symptoms are monitored and maintained or improved Outcome: Progressing The patient is Moderately Stable - Low risk of patient condition declining or worsening The patient's goals for the shift include comfort and rest The clinical goals for the shift include stable vitals Over the shift, the patient continued to make progress toward the following goals. [facility] HPon 03-18-2023 HPI: Juan Jose Austin is a 82 y.o. male who presents to the EP lab for a permanent pacemaker implantation. He is admitted to the hospital with an unwitnessed syncope episode. He follows with electrophysiology outpatient and was scheduled to have a permanent pacemaker placed on Saturday, however he had felt lightheadedness/dizzi ness and had an unwitnessed syncopal episode. On evaluation, the patient was having heart rates in the 20s to 30s with symptoms. He was started on a dopamine drip for bradycardia and it elevated his heart rates into the 40s, however made him nauseous as well. His dopamine drip was subsequently decreased to 5 which he tolerated well and is currently asymptomatic. Cardiology ROS: GENERAL: Denies fever, chills, night sweats, weight loss. CARDIOVASCULAR: Denies chest pain, exertional dyspnea, orthopnea/PND, lower extremity edema, palpitations. RESPIRATORY: Denies SOB, coughing, wheezing GI: Denies abdominal pain, nausea/vomiting. PSYCH: Denies anxiety. Past Medical History He has a past medical history of Atrial flutter (CMS/HCC), Cancer (CMS/HCC), Chronic systolic heart failure (CMS/HCC), CKD (chronic kidney disease), stage III (CMS/HCC), Hematuria, Hypertension, and LBBB (left bundle branch block). Surgical History He has a past surgical history that includes Back surgery and Nephrectomy. Social History He reports that he has quit smoking. His smoking use included cigarettes. He has never used smokeless tobacco. He reports that he does not currently use alcohol. No history on file for drug use. Family History Family History Problem Relation Name Age of Onset Heart failure Mother Allergies Adhesive and Other Medications Medications Prior to Admission Medication Sig Dispense Refill Last Dose amLODIPine (Norvasc) 10 mg tablet Take 1 tablet every day by oral route. aspirin 81 mg EC tablet Take 81 mg by mouth in the morning. atorvastatin (Lipitor) 10 mg tablet Take 1 tablet every day by oral route for 90 days. balsalazide (Colazal) 750 mg capsule Take 2,250 mg by mouth in the morning, at noon, and at bedtime. ferrous sulfate 325 (65 Fe) MG tablet Take 65 mg by mouth with breakfast. furosemide (Lasix) 20 mg tablet Take 1 tablet (20 mg) by mouth in the morning. 90 tablet 2 hydrALAZINE (Apresoline) 50 mg tablet Take 1 tablet (50 mg) by mouth in the morning, afternoon, and at bedtime. 270 tablet 3 isosorbide dinitrate (Isordil) 20 mg tablet Take 1 tablet (20 mg) by mouth in the morning, at noon, and at bedtime. 270 tablet 3 losartan (Cozaar) 50 mg tablet Take 50 mg by mouth in the morning and at bedtime. magnesium oxide (Mag-Ox) 400 mg tablet 400 mg in the morning. omeprazole (PriLOSEC) [address] capsule Take 1 capsule twice a day by oral route for 90 days. pembrolizumab (Keytruda) 25 mg/mL chemo injection Infuse into a venous catheter 1 (one) time. potassium chloride ER (Micro-K) 10 mEq ER capsule Take 1 capsule twice a day by oral route for 30 days. tamsulosin (Flomax) 0.4 mg 24 hr capsule Take 0.4 mg by mouth in the morning. Last Recorded Vitals Patient Vitals for the past 24 hrs: BP Temp Temp src Pulse Resp SpO2 Weight 03/18/23 0717 142/53 36.8 ???C (98.2 ???F) Temporal (!) 33 20 98 % -- 03/18/23 0700 125/50 -- -- (!) 39 13 99 % -- 03/18/23 0622 -- -- -- -- -- -- 80.5 kg (177 lb 7.5 oz) 03/18/23 0400 (!) 120/41 -- -- (!) 31 16 96 % -- 03/18/23 0000 (!) 140/49 -- -- (!) 34 10 97 % -- 03/17/23 2200 (!) 143/48 -- -- (!) 34 14 97 % -- 03/17/23 2000 134/50 -- -- (!) 34 12 97 % -- 03/17/23 1700 139/58 -- -- (!) 43 15 96 % -- 03/17/23 1600 128/57 36.6 ???C (97.9 ???F) -- (!) 45 14 97 % -- 03/17/23 1500 128/61 -- -- (!) 47 16 95 % -- 03/17/23 1400 122/51 -- -- (!) 41 19 98 % -- 03/17/23 1300 131/62 -- -- 51 19 -- -- 03/17/23 1200 129/58 36.7 ???C (98 ???F) -- (!) 44 20 98 % -- 03/17/23 1100 137/67 -- -- 56 19 99 % -- 03/17/23 1000 136/59 -- -- (!) 46 16 96 % -- 03/17/23 0900 130/65 -- -- (!) 40 12 96 % -- 03/17/23 0800 135/53 36.6 ???C (97.9 ???F) Temporal (!) 39 15 97 % -- Physical Examination: GENERAL: AOx3, in no acute distress. HEAD: Atraumatic, normocephalic. EYES: ERICA, EOMI. NECK: No JVD present. CARDIAC: Sinus bradycardia. No murmur, rubs, or gallops. RESPIRATORY: CTAB, no increased effort of breathing. ABDOMEN: Soft, nontender, nondistended. EXTREMITIES: No lower extremity edema, peripheral pulses are 2+ bilaterally. NEURO: No focal deficits Relevant Lab Results Encounter Date: 03/16/23 Electrocardiogram, 12-lead Result Value Ventricular Rate 39 Atrial Rate 39 MS Interval 342 QRS DURATION 156 QT Interval 504 QTC CALCULATION(BAZETT) 405 P Odessa 17 R-Odessa -84 T Wave Odessa 10 Impression Marked sinus bradycardia with 1st degree A-V block Left axis deviation Right bundle branch block Inferior infarct , age undetermined Anterior infarct , age undetermined Abnormal ECG No previous ECGs (more content not included)... Normal [facility] 30on 03-17-2023 30 The patient is Moderately Stable - Low risk of patient condition declining or worsening The patient's goals for the shift include Comfort The clinical goals for the shift include VSS Normal [facility] 30 The patient is Moderately Stable - Low risk of patient condition declining or worsening The patient's goals for the shift include Comfort The clinical goals for the shift include VSS Normal [facility] APTTon 03-17-2023 ACTIVATED PARTIAL THROMBOPLASTIN TIME IN PPP BY COAGULATION ASSAY 26.6 Seconds Normal 25.0-35.0 [facility] Comment on above: Result Comment: Clin ical significance of the APTT is questionable in the presence of heparin. Performed By: #### L [id number] ####[facility] ([facility])[address] [place] [address] B-TYPE NATRIURETIC PEPTIDEon 03-17-2023 Natriuretic peptide B (Bld) [Mass/Vol] 484 pg/mL High 0-100 [facility] Comment on above: Performed By: #### L [id number] ####[facility] ([facility])[address] [place] [address] CBC WITH AUTO DIFFERENTIALon 03-17-2023 Basophils (Bld) [#/Vol] 0.03 10*3/uL Normal 0.00-0.20 [facility] Comment on above: Performed By: #### L [id number] ####[facility] ([facility])[address] [place] [address] Basophils/100 WBC (Bld) 0.6 % Normal 0.0-1.0 [facility] Comment on above: Performed By: #### L [id number] ####[facility])[address] [place] [address] Eosinophils (Bld) [#/Vol] 0.13 10*3/uL Normal 0.00-0.50 [facility] Comment on above: Performed By: #### L [id number] ####[facility] ([facility])[address] [place] [address] Eosinophils/100 WBC (Bld) 2.6 % Normal 0.0-6.0 [facility] Comment on above: Performed By: #### L [id number] ####[facility] ([facility])[address] [place] [address] Erythrocyte distribution width (RBC) [Ratio] 14.9 % Normal 11.5-15.0 [facility] Comment on above: Performed By: #### L [id number] ####[facility] ([facility])[address] [place] [address] ERYTHROCYTE MEAN CORPUSCULAR HEMOGLOBIN CONCENTRATION (G/DL) BY AUTOMATED 32.4 g/dL Normal 32.0-35.0 [facility] Comment on above: Performed By: #### L [id number] ####[facility] ([facility])[address] [place] [address] Hematocrit (Bld) [Volume fraction] 36.4 % Low 39.0-55.0 [facility] Comment on above: Performed By: #### L [id number] ####[facility] ([facility])[address] [place] [address] Hemoglobin (Bld) [Mass/Vol] 11.8 g/dL Low 13.0-17.0 [facility] Comment on above: Performed By: #### L [id number] ####[facility] ([facility])[address] [place] [address] Immature granulocytes (Bld) [#/Vol] 0.02 10*3/uL Normal 0.00-0.20 [facility] Comment on above: Performed By: #### L [id number] ####[facility] ([facility])[address] [place] [address] Immature granulocytes/100 WBC (Bld) 0.4 % Normal 0.0-1.0 [facility] Comment on above: Performed By: #### L [id number] ####[facility] ([facility])[address] [place] [address] Lymphocytes (Bld) [#/Vol] 0.72 10*3/uL Low 1.20-4.00 [facility] Comment on above: Performed By: #### L [id number] ####[facility] ([facility])[address] [place] [address] Lymphocytes/100 WBC (Bld) 14.6 % Low 20.0-45.0 [facility] Comment on above: Performed By: #### L [id number] ####[facility] ([facility])[address] [place] [address] MCH (RBC) [Entitic mass] 27.3 pg Normal 27.0-33.0 [facility] Comment on above: Performed By: #### L [id number] ####[facility] ([facility])[address] [place] [address] MCV (RBC) [Entitic vol] 84.1 fL Normal 82.0-98.0 [facility] Comment on above: Performed By: #### L [id number] ####[facility] ([facility])[address] [place] [address] Monocytes (Bld) [#/Vol] 0.39 10*3/uL Normal 0.10-1.00 [facility] Comment on above: Performed By: #### L [id number] ####[facility] ([facility])[address] [place] [address] Monocytes/100 WBC (Bld) 7.9 % Normal 5.0-12.0 [facility] Comment on above: Performed By: #### L [id number] ####[facility] ([facility])[address] [place] [address] Neutrophils (Bld) [#/Vol] 3.65 10*3/uL Normal 1.60-7.60 [facility] Comment on above: Performed By: #### L [id number] ####[facility] ([facility])[address] [place] [address] Neutrophils/100 WBC (Bld) 73.9 % High 40.0-72.0 [facility] Comment on above: Performed By: #### L [id number] ####[facility] ([facility])[address] [place] [address] NRBC (PER 100 WBCS) BY AUTOMATED COUNT 0.0 % Normal 0 [facility] Comment on above: Performed By: #### L [id number] ####[facility] ([facility])[address] [place] [address] PLATELETS (10*3/UL) IN BLOOD AUTOMATED COUNT 172 10*3/uL Normal 150-400 [facility] Comment on above: Performed By: #### L [id number] ####[facility] ([facility])[address] [place] [address] RBC (Bld) [#/Vol] 4.33 10*6/uL Normal 4.20-5.70 [facility] Comment on above: Performed By: #### L [id number] ####[facility] ([facility])[address] [place] [address] WBC (Bld) [#/Vol] 4.94 10*3/uL Normal 4.00-10.60 [facility] Comment on above: Performed By: #### L [id number] ####[facility] ([facility])[address] [place] [address] COMPREHENSIVE METABOLIC PANE Taj 03-17-2023 Albumin [Mass/Vol] 4.2 g/dL Normal 3.5-5.7 [facility] Comment on above: Performed By: #### L [id number] ####[facility])[address] [place] [address] ALP [Catalytic activity/Vol] 61 U/L Normal 34-104 [facility] Comment on above: Performed By: #### L [id number] ####[facility] ([facility])[address] [place] [address] ALT [Catalytic activity/Vol] 14 U/L Normal 7-52 [facility] Comment on above: Performed By: #### L [id number] ####[facility] ([facility])[address] [place] [address] Anion gap [Moles/Vol] 14 mmol/L Normal 7-20 [facility] Comment on above: Performed By: #### L [id number] ####[facility] ([facility])[address] [place] [address] AST [Catalytic activity/Vol] 17 U/L Normal 13-39 [facility] Comment on above: Performed By: #### L [id number] ####[facility] ([facility])[address] [place] [address] Bilirubin [Mass/Vol] 0.6 mg/dL Normal 0.3-1.0 [facility] Comment on above: Performed By: #### L [id number] ####[facility] [place] [address] Calcium [Mass/Vol] 9.0 mg/dL Normal 8.6-10.3 [facility] Comment on above: Performed By: #### L [id number] ####[facility])[address] [place] [address] Chloride [Moles/Vol] 108 mmol/L High 98-107 [facility] Comment on above: Performed By: #### L [id number] ####[facility])[address] [place] [address] CO2 [Moles/Vol] 20 mmol/L Low 21-31 [facility] Comment on above: Performed By: #### L [id number] ####[facility] ([facility])[address] [place] [address] Creatinine [Mass/Vol] 2.26 mg/dL High 0.70-1.30 [facility] Comment on above: Performed By: #### L [id number] ####[facility] ([facility])[address] [place] [address] GLOMERULAR FILTRATION RATE ML/MIN/1.73 SQ M.PREDICTED 28.1 mL/min/1.73m*2 Low >60.0 [facility] Comment on above: Result Comment: The [facility]???s estimated glomerular filtration rate (eGFR) will no longer include consideration of race in its calculation. The National Kidney Foundation???s eGFR Task Force developed new recommendations for the estimation of the glomerular filtration rate in the [place] They recommend immediate implementation of the new equation refit without the race variable in all laboratories because the calculation does not include race. In addition to not including race in the calculation and reporting, it included diversity in its development, and has acceptable performance characteristics and potential consequences that do not disproportionately affect any one group of individuals. Performed By: #### L [id number] ####[facility] ([facility])[address] [place] [address] Glucose [Mass/Vol] 158 mg/dL High 70-100 [facility] Comment on above: Performed By: #### L [id number] ####[facility] ([facility])[address] [place] [address] Potassium [Moles/Vol] 4.2 mmol/L Normal 3.5-5.1 [facility] Comment on above: Performed By: #### L [id number] ####[facility] ([facility])[address] [place] [address] Protein [Mass/Vol] 6.3 g/dL Normal 6.0-8.3 [facility] Comment on above: Performed By: #### L [id number] ####[facility] ([facility])[address] [place] [address] Sodium [Moles/Vol] 138 mmol/L Normal 136-145 [facility] Comment on above: Performed By: #### L [id number] ####[facility] ([facility])[address] [place] [address] Urea nitrogen [Mass/Vol] 42 mg/dL High 7-25 [facility] Comment on above: Performed By: #### L [id number] ####[facility] ([facility])[address] [place] [address] UREA NITROGEN/CREATININE (MASS RATIO) IN SER/PLAS 18.6 Normal [facility] Comment on above: Performed By: #### L [id number] ####[facility] ([facility])[address] [place] [address] Albumin [Mass/Vol] 3.8 g/dL Normal 3.5-5.7 [facility] Comment on above: Performed By: #### L [id number] ####[facility] ([facility])[address] [place] [address] ALP [Catalytic activity/Vol] 58 U/L Normal 34-104 [facility] Comment on above: Performed By: #### L [id number] ####[facility] ([facility])[address] [place] [address] ALT [Catalytic activity/Vol] 12 U/L Normal 7-52 [facility] Comment on above: Performed By: #### L [id number] ####[facility] ([facility])[address] [place] [address] Anion gap [Moles/Vol] 10 mmol/L Normal 7-20 [facility] Comment on above: Performed By: #### L [id number] ####[facility] ([facility])[address] [place] [address] AST [Catalytic activity/Vol] 15 U/L Normal 13-39 [facility] Comment on above: Performed By: #### L [id number] ####[facility] ([facility])[address] [place] [address] Bilirubin [Mass/Vol] 0.4 mg/dL Normal 0.3-1.0 [facility] Comment on above: Performed By: #### L [id number] ####[facility] ([facility])[address] [place] [address] Calcium [Mass/Vol] 8.7 mg/dL Normal 8.6-10.3 [facility] Comment on above: Performed By: #### L [id number] ####[facility] ([facility])[address] [place] [address] Chloride [Moles/Vol] 110 mmol/L High 98-107 [facility] Comment on above: Performed By: #### L [id number] ####[facility] ([facility])[address] [place] [address] CO2 [Moles/Vol] 24 mmol/L Normal 21-31 [facility] Comment on above: Performed By: #### L [id number] ####[facility] ([facility])[address] [place] [address] Creatinine [Mass/Vol] 2.26 mg/dL High 0.70-1.30 [facility] Comment on above: Performed By: #### L [id number] ####[facility] ([facility])[address] [place] [address] GLOMERULAR FILTRATION RATE ML/MIN/1.73 SQ M.PREDICTED 28.1 mL/min/1.73m*2 Low >60.0 [facility] Comment on above: Result Comment: The [facility]???s estimated glomerular filtration rate (eGFR) will no longer include consideration of race in its calculation. The National Kidney Foundation???s eGFR Task Force developed new recommendations for the estimation of the glomerular filtration rate in the [place] They recommend immediate implementation of the new equation refit without the race variable in all laboratories because the calculation does not include race. In addition to not including race in the calculation and reporting, it included diversity in its development, and has acceptable performance characteristics and potential consequences that do not disproportionately affect any one group of individuals. Performed By: #### L [id number] ####[facility] ([facility])[address] [place] [address] Glucose [Mass/Vol] 110 mg/dL High 70-100 [facility] Comment on above: Performed By: #### L [id number] ####[facility] ([facility])[address] [place] [address] Potassium [Moles/Vol] 4.3 mmol/L Normal 3.5-5.1 [facility] Comment on above: Performed By: #### L [id number] ####[facility] ([facility])[address] [place] [address] Protein [Mass/Vol] 5.4 g/dL Low 6.0-8.3 [facility] Comment on above: Performed By: #### L [id number] ####[facility] ([facility])[address] [place] [address] Sodium [Moles/Vol] 140 mmol/L Normal 136-145 [facility] Comment on above: Performed By: #### L [id number] ####[facility] ([facility])[address] [place] [address] Urea nitrogen [Mass/Vol] 40 mg/dL High 7-25 [facility] Comment on above: Performed By: #### L [id number] ####[facility] ([facility])[address] [place] [address] UREA NITROGEN/CREATININE (MASS RATIO) IN SER/PLAS 17.7 Normal [facility] Comment on above: Performed By: #### L [id number] ####[facility] ([facility])[address] [place] [address] CONSULTon 03-17-2023 CONSULT - Attestation signed by Jimbo Bautista MD at 03/18/2023 9:03 AM By using the attestations below, the signing clinician agrees that I have read and verify that the documentation has been personally reviewed by me and ensure that the documentation accurately reflects the encounter. GC: I personally saw this patient on the day of the encounter, performed the álvarez portion(s) of the service and participated in the management and confirm the resident's documentation. Please note there may be an additional personal documentation from me. I discussed the procedure in length with figures to the patient and went over the risks, benefits and alternatives of the PPM implantation procedure. I stated to the patient that the risk can be classified as major and minor complications. The minor include discomfort over the incision site, erythema. The major complications include pneumothorax, hemothorax, thromboembolism including DVT stroke systemic emboli endorgan damage and even . We also discussed the possibility of lead perforation leading to pericardial effusion or tamponade which may or may not require surgical intervention as well as the possibility of valve damage. Overall the risk of these complications ranged anywhere from 1-5%. Patient verbalized understanding and have agreed to proceed with the procedure. Cardiology Consult Note Reason for Consult: symptomatic bradycardia HPI: Juan Jose Austin is a 82 y.o. male who presented to the hospital with syncope. The patient follows with electrophysiology outpatient and was scheduled to have a permanent pacemaker placed on Saturday, however he had felt lightheadedness/dizzi ness and had an unwitnessed syncopal episode. On evaluation, the patient was having heart rates in the 20s to 30s with symptoms. He was started on a dopamine drip for bradycardia and it elevated his heart rates into the 40s, however made him nauseous as well. We decreased his dopamine drip to 5 which he tolerated well and is currently asymptomatic Cardiology ROS: GENERAL: Denies fever, chills, night sweats, weight loss. CARDIOVASCULAR: Denies chest pain, exertional dyspnea, orthopnea/PND, lower extremity edema, palpitations. RESPIRATORY: Denies SOB, coughing, wheezing GI: Denies abdominal pain, nausea/vomiting. PSYCH: Denies anxiety. Past Medical History He has a past medical history of Atrial flutter (CMS/HCC), Cancer (CMS/HCC), Chronic systolic heart failure (CMS/HCC), CKD (chronic kidney disease), stage III (CMS/HCC), Hematuria, Hypertension, and LBBB (left bundle branch block). Surgical History He has a past surgical history that includes Back surgery and Nephrectomy. Social History He reports that he has quit smoking. His smoking use included cigarettes. He has never used smokeless tobacco. He reports that he does not currently use alcohol. No history on file for drug use. Family History Family History Problem Relation Name Age of Onset Heart failure Mother Allergies Adhesive and Other Medications Medications Prior to Admission Medication Sig Dispense Refill Last Dose amLODIPine (Norvasc) 10 mg tablet Take 1 tablet every day by oral route. aspirin 81 mg EC tablet Take 81 mg by mouth in the morning. atorvastatin (Lipitor) 10 mg tablet Take 1 tablet every day by oral route for 90 days. balsalazide (Colazal) 750 mg capsule Take 2,250 mg by mouth in the morning, at noon, and at bedtime. ferrous sulfate 325 (65 Fe) MG tablet Take 65 mg by mouth with breakfast. furosemide (Lasix) 20 mg tablet Take 1 tablet (20 mg) by mouth in the morning. 90 tablet 2 hydrALAZINE (Apresoline) 50 mg tablet Take 1 tablet (50 mg) by mouth in the morning, afternoon, and at bedtime. 270 tablet 3 isosorbide dinitrate (Isordil) 20 mg tablet Take 1 tablet (20 mg) by mouth in the morning, at noon, and at bedtime. 270 tablet 3 losartan (Cozaar) 50 mg tablet Take 50 mg by mouth in the morning and at bedtime. magnesium oxide (Mag-Ox) 400 mg tablet 400 mg in the morning. omeprazole (PriLOSEC) [address] capsule Take 1 capsule twice a day by oral route for 90 days. pembrolizumab (Keytruda) 25 mg/mL chemo injection Infuse into a venous catheter 1 (one) time. potassium chloride ER (Micro-K) 10 mEq ER capsule Take 1 capsule twice a day by oral route for 30 days. tamsulosin (Flomax) 0.4 mg 24 hr capsule Take 0.4 mg by mouth in the morning. Last Recorded Vitals Patient Vitals for the past 24 hrs: BP Temp Temp src Pulse Resp SpO2 Height Weight 03/17/23 1300 131/62 -- -- 51 19 -- -- -- 03/17/23 1200 129/58 36.7 ???C (98 ???F) -- (!) 44 20 98 % -- -- 03/17/23 1100 137/67 -- -- 56 19 99 % -- -- 03/17/23 1000 136/59 -- -- (!) 46 16 96 % -- -- 03/17/23 0900 130/65 -- -- (!) 40 12 96 % -- -- 03/17/23 0800 135/53 36.6 ???C (97 (more content not included)... Normal [facility] HEMOGLOBIN A1Con 03-17-2023 Glucose [Mass/Vol] 100 mg/dL Normal [facility] Comment on above: Performed By: #### L AB90 ####[facility] ([employer] [place] [address] HbA1c (Bld) [Mass fraction] 5.1 % Normal 4.0-6.0 [facility] Comment on above: Performed By: #### L AB90 ####[facility] ([employer] [place] [address] LACTIC ACID WITH 4 HOUR REFL EXon 03-17-2023 LACTATE (MMOL/L) IN SER/PLAS 0.7 mmol/L Normal 0.5-2.2 [facility] Comment on above: Performed By: #### L [id number] ####[facility] ([employer] [place] [address] LIPID PANELon 03-17-2023 CHOL/HDL 3.1 mg/dL Normal [facility] Comment on above: Performed By: #### L AB18 ####[facility] ([employer] [place] [address] Cholesterol [Mass/Vol] 124 mg/dL Normal 120-200 [facility] Comment on above: Performed By: #### L AB18 ####[facility] ([facility])[address] [place] [address] Magnesium [Mass/Vol] 138 mg/dL Normal 40-149 [facility] Comment on above: Result Comment: TRIG LYCERIDE REFERENCE RANGE: 20 YEARS AND OLDER CARDIOVASCULAR RISK LESS THAN 150 mg/dL LOW RISK 150 TO 199 mg/dL BORDERLINE RISK 200 mg/dL AND GREATER HIGH RISK Performed By: #### L AB18 ####[facility] ([facility])[address] [place] [address] Magnesium [Mass/Vol] 56 mg/dL Normal 0-160 [facility] Comment on above: Performed By: #### L AB18 ####[facility] ([facility])[address] [place] [address] Magnesium [Mass/Vol] 40 mg/dL Normal 23-92 [facility] Comment on above: Performed By: #### L AB18 ####[facility] ([facility])[address] [place] [address] NON HDL CHOL. (LDL+VLDL) 84 Normal [facility] Comment on above: Performed By: #### L AB18 ####[facility] ([facility])[address] [place] [address] TOTAL VLDL-C 28 mg/dL Normal 0-40 [facility] Comment on above: Performed By: #### L AB18 ####[facility] ([facility])[address] [place] [address] MAGNESIUMon 03-17-2023 Magnesium [Mass/Vol] 1.7 mg/dL Low 1.9-2.7 [facility] Comment on above: Performed By: #### L [id number] ####[facility] ([facility])[address] [place] [address] PHOSPHORUSon 03-17-2023 Magnesium [Mass/Vol] 3.7 mg/dL Normal 2.5-5.0 [facility] Comment on above: Performed By: #### L [id number] ####[facility] ([employer] [place] [address] PROTIME-INRon 03-17-2023 INR IN PPP BY COAGULATION ASSAY 1.07 Normal 0.90-1.10 [facility] Comment on above: Result Comment: ACCC P RECOMMENDED INR FOR WARFARIN THERAPY CONDITION INR PROPHYLAXIS OF VENOUS THROMBOSIS 2-3 (HIGH-RISK SURGERY) TREATMENT OF VENOUS THROMBOSIS 2-3 TREATMENT OF PULMONARY EMBOLISM 2-3 PREVENTION OF SYSTEMIC EMBOLISM: 2-3 ACUTE MYOCARDIAL INFARCTION TISSUE HEART VALVES VALVULAR HEART DISEASE ATRIAL FIBRILLATION RECURRENT SYSTEMIC EMBOLISM MECHANICAL HEART VALVE 2.5-3.5 FROM: ORAL ANTICOAGULANTS. MECHANISM OF ACTION, CLINICAL EFFECTIVENESS, AND OPTIMAL THERAPEUTIC RANGE. CHEST 1995;108:231S-246S. Performed By: #### L [id number] ####[facility] [employer])[address] [place] [address] PROTHROMBIN TIME (PT) IN PPP BY COAGULATION ASSAY 13.9 Seconds Normal 12.3-14.8 [facility] Comment on above: Performed By: #### L [id number] ####[facility] ([employer] [place] [address] TROPONIN Ion 03-17-2023 Troponin I.cardiac [Mass/Vol] 0.06 ng/mL High 0.00-0.04 [facility] Comment on above: Performed By: #### L [id number] ####[facility] ([employer] [place] [address] Troponin I.cardiac [Mass/Vol] 0.06 ng/mL High 0.00-0.04 [facility] Comment on above: Performed By: #### L [id number] ####[facility] ([facility])[address] [place] [address] Troponin I.cardiac [Mass/Vol] 0.05 ng/mL High 0.00-0.04 [facility] Comment on above: Performed By: #### L [id number] ####[facility] ([facility])[address] [place] [address] TSH3 REFLEX TO FT4on 023 THYROTROPIN (MIU/L) IN SER/PLAS BY DETECTION LIMIT <= 0.05 MIU/L 2.52 mIU/L Normal 0.34-5.60 [facility] Comment on above: Performed By: #### L [id number] ####[facility] ([facility])[address] [place] [address] Office Visiton 03-15-2023 Follow-up visit [id number] Juan Jose Austin 1940 M Date Provider Department Center 03/15/2023 JONATHAN BERKOWITZ [facility] Family History Problem Relation Age of Onset Heart failure Mother Family Status - Relation Status Age at Mother Level of Service:[address] MS OFFICE/OUTPATIENT ESTABLISHED MOD MDM 30-39 MIN Normal [facility] BNPon 03-10-2023 Natriuretic peptide B (Bld) [Mass/Vol] 1490.0 pg/mL Normal <=1,800.0 [facility] Comment on above: Performed By: #### C K, HSTROPN, CMP, BNP #### [facility] [address] [place] [address] Dr. Tan Oliveros CBC AUTO DIFFon 03-10-2023 BASO # 0.1 103/ul Normal 0.0-0.1 [facility] Comment on above: Performed By: #### C K, HSTROPN, CMP, BNP #### [facility] [address] [address] [address] Tan Oliveros Basophils/100 WBC (Bld) 0.9 % Normal 0.2-2.0 [facility] Comment on above: Performed By: #### C K, HSTROPN, CMP, BNP #### [facility] [address] [place] [address] Dr. Tan Oliveros EO # 0.1 103/ul Normal 0.0-0.7 [facility] Comment on above: Performed By: #### C K, HSTROPN, CMP, BNP #### [facility] [address] [place] [address] Dr. Tan Oliveros Eosinophils/100 WBC (Bld) 1.6 % Normal 0.9-7.0 [facility] Comment on above: Performed By: #### C K, HSTROPN, CMP, BNP #### [facility] [address] [place] [address] Dr. Tan Oliveros Erythrocyte distribution width (RBC) [Ratio] 14.7 % Normal 11.0-15.0 [facility] Comment on above: Performed By: #### C K, HSTROPN, CMP, BNP #### [facility] [address] [place] [address] Dr. Tan Oliveros Hematocrit (Bld) [Volume fraction] 38.9 % Critically low 42.0-54.0 [facility] Comment on above: Performed By: #### C K, HSTROPN, CMP, BNP #### [facility] [address] [place] [address] Dr. Tan Oliveros Hemoglobin (Bld) [Mass/Vol] 12.8 g/dL Critically low 14.0-18.0 [facility] Comment on above: Performed By: #### C K, HSTROPN, CMP, BNP #### [facility] [address] [place] [address] Dr. Tan Oliveros IG # 0.02 10e3/ul Normal 0.00-0.03 [facility] Comment on above: Performed By: #### C K, HSTROPN, CMP, BNP #### [facility] [address] [place] [address] Dr. Tan Oliveros IG % 0.3 % Normal 0.0-0.5 [facility] Comment on above: Performed By: #### C K, HSTROPN, CMP, BNP #### [facility] [address] [place] [address] Dr. Tan Oliveros LYMPH # 0.7 103/ul Critically low 1.2-3.8 [facility] Comment on above: Performed By: #### C K, HSTROPN, CMP, BNP #### [facility] [address] [place] [address] Dr. Tan Oliveros Lymphocytes/100 WBC (Bld) 10.4 % Critically low 20.5-60.0 [facility] Comment on above: Performed By: #### C K, HSTROPN, CMP, BNP #### [facility] [address] [place] [address] Dr. Tan Oliveros MANUAL DIFF REQ NO Normal [facility] Comment on above: Performed By: #### C K, HSTROPN, CMP, BNP #### [facility] [address] [place] [address] Dr. Tan Oliveros MCH (RBC) [Entitic mass] 27.2 pg Normal 25.9-34.0 [facility] Comment on above: Performed By: #### C K, HSTROPN, CMP, BNP #### [facility] [address] [place] [address] Dr. Tan Oliveros MCHC (RBC) [Mass/Vol] 32.9 g/dL Normal 29.9-35.2 [facility] Comment on above: Performed By: #### C K, HSTROPN, CMP, BNP #### [facility] [address] [place] [address] Dr. Tan Oliveros MCV (RBC) [Entitic vol] 82.8 fL Normal 80.0-94.0 [facility] Comment on above: Performed By: #### C K, HSTROPN, CMP, BNP #### [facility] [address] [place] [address] Dr. Tan Oliveros MONO # 0.4 103/ul Normal 0.3-0.8 [facility] Comment on above: Performed By: #### C K, HSTROPN, CMP, BNP #### [facility] [address] [place] [address] Dr. Tan Oliveros Monocytes/100 WBC (Bld) 5.8 % Normal 1.7-12.0 [facility] Comment on above: Performed By: #### C K, HSTROPN, CMP, BNP #### [facility] [address] [place] [address] Dr. Tan Oliveros NEUT # 5.2 103/ul Normal 1.4-6.5 [facility] Comment on above: Performed By: #### C K, HSTROPN, CMP, BNP #### [facility] [address] [place] [address] Dr. Tan Oliveros Neutrophils/100 WBC (Bld) 81.0 % Critically high 43.0-75.0 [facility] Comment on above: Performed By: #### C K, HSTROPN, CMP, BNP #### [facility] [address] [place] [address] Dr. Tna Oliveros Platelet mean volume (Bld) [Entitic vol] 9.9 fL Normal 9.5-13.5 [facility] Comment on above: Performed By: #### C K, HSTROPN, CMP, BNP #### [facility] [address] [place] [address] Dr. Tan Oliveros PLT 198 103/ul Normal 150-450 [facility] Comment on above: Performed By: #### C K, HSTROPN, CMP, BNP #### [facility] [address] [place] [address] Dr. Tan Oliveros RBC 4.70 106/ul Normal 4.70-6.10 [facility] Comment on above: Performed By: #### C K, HSTROPN, CMP, BNP #### [facility] [address] [place] [address] Dr. Tan Oliveros WBC 6.4 103/ul Normal 4.0-11.0 [facility] Comment on above: Performed By: #### C K, HSTROPN, CMP, BNP #### [facility] [address] [address] [address] Tan Oliveros CPKon 03-10-2023 CK [Catalytic activity/Vol] 152 U/L Normal 39-308 [facility] Comment on above: Performed By: #### C K, HSTROPN, CMP, BNP #### [facility] [address] [place] [address] Dr. Tan Oliveros PROF 14(COMP METB)on 023 Albumin [Mass/Vol] 3.5 g/dL Normal 3.4-5.0 [facility] Comment on above: Performed By: #### C K, HSTROPN, CMP, BNP #### [facility] [address] [place] [address] Dr. Tan Oliveros Albumin/Globulin [Mass ratio] 1.2 {ratio} Normal [facility] Comment on above: Performed By: #### C K, HSTROPN, CMP, BNP #### [facility] [address] [place] [address] Dr. Tan Oliveros ALP [Catalytic activity/Vol] 69 U/L Normal 46-116 [facility] Comment on above: Performed By: #### C K, HSTROPN, CMP, BNP #### [facility] [address] [place] [address] Dr. Tan Oliveros ALT [Catalytic activity/Vol] 21 U/L Normal 16-63 [facility] Comment on above: Performed By: #### C K, HSTROPN, CMP, BNP #### [facility] [address] [place] [address] Dr. Tan Oliveros Anion gap [Moles/Vol] 14.6 mmol/L Normal [facility] Comment on above: Performed By: #### C K, HSTROPN, CMP, BNP #### [facility] [address] [place] [address] Dr. Tan Oliveros AST [Catalytic activity/Vol] 21 U/L Normal 15-37 [facility] Comment on above: Performed By: #### C K, HSTROPN, CMP, BNP #### [facility] [address] [address] [address] Tan Oliveros Bilirubin [Mass/Vol] 0.5 mg/dL Normal 0.2-1.0 [facility] Comment on above: Performed By: #### C K, HSTROPN, CMP, BNP #### [facility] [address] [address] [address] Tan Oliveros Calcium [Mass/Vol] 8.7 mg/dL Normal 8.5-10.1 [facility] Comment on above: Performed By: #### C K, HSTROPN, CMP, BNP #### [facility] [address] [place] [address] Dr. Tan Oliveros Chloride [Moles/Vol] 107 mmol/L Normal 98-107 [facility] Comment on above: Performed By: #### C K, HSTROPN, CMP, BNP #### [facility] [address] [place] [address] Dr. Tan Oliveros CO2 [Moles/Vol] 23.1 mmol/L Normal 21.0-32.0 [facility] Comment on above: Performed By: #### C K, HSTROPN, CMP, BNP #### [facility] [address] [place] [address] Dr. Tan Oliveros Creatinine [Mass/Vol] 2.31 mg/dL Critically high 0.70-1.30 [facility] Comment on above: Performed By: #### C K, HSTROPN, CMP, BNP #### [facility] [address] [place] [address] Dr. Tan Oliveros EGFR-AF YEMENI 33 mL/min/1.73m2 Critically low >=60 [facility] Comment on above: Performed By: #### C K, HSTROPN, CMP, BNP #### [facility] [address] [place] [address] Dr. Tan Oliveros EGFR-NON AF YEMENI 27 mL/min/1.73m2 Critically low >=60 [facility] Comment on above: Performed By: #### C K, HSTROPN, CMP, BNP #### [facility] [address] [address] [address] Tan Oliveros Globulin (S) [Mass/Vol] 2.8 g/dL Normal [facility] Comment on above: Performed By: #### C K, HSTROPN, CMP, BNP #### [facility] [address] [address] [address] Tan Oliveros Glucose [Mass/Vol] 123 mg/dL Critically high 74-106 [facility] Comment on above: Performed By: #### C K, HSTROPN, CMP, BNP #### [facility] [address] [place] [address] Dr. Tan Oliveros Potassium [Moles/Vol] 4.7 mmol/L Normal 3.5-5.1 [facility] Comment on above: Performed By: #### C K, HSTROPN, CMP, BNP #### [facility] [address] [place] [address] Dr. Tan Oliveros Protein [Mass/Vol] 6.3 g/dL Critically low 6.4-8.2 [facility] Comment on above: Performed By: #### C K, HSTROPN, CMP, BNP #### [facility] [address] [place] [address] Dr. Tan Oliveros Sodium [Moles/Vol] 140 mmol/L Normal 136-145 [facility] Comment on above: Performed By: #### C K, HSTROPN, CMP, BNP #### [facility] [address] [place] [address] Dr. Tan Oliveros Urea nitrogen [Mass/Vol] 39.0 mg/dL Critically high 7.0-18.0 [facility] Comment on above: Performed By: #### C K, HSTROPN, CMP, BNP #### [facility] [address] [place] [address] Dr. Tan Oliveros Urea nitrogen/Creatinine [Mass ratio] 16.9 mg/mg [facility] Comment on above: Performed By: #### C K, HSTROPN, CMP, BNP #### [facility] [address] [place], [place] [address] Dr. Tan Oliveros TROPONIN, HIGH SENSITIVITYon 03-10-2023 HSTROP 44.5 pg/mL Normal 4.0-76.1 [facility] Comment on above: Result Comment: CUT- OFF POINTS HAVE BEEN ESTABLISHED BASED ON THE FOURTH UNIVERSAL DEFINITIONS OF MYOCARDIAL INFARCTION. THE UPPER REFERENCE LIMIT (URL) OF TROPONIN, DEFINED THE 99TH PERCENTILE OF cTnI DISTRIBUTION IN A REFERENCE POPULATION, HAS BEEN CONFIRMED THE DECISION THRESHOLD FOR SD DIAGNOSIS. Performed By: #### C K, HSTROPN, CMP, BNP #### [facility] [address] [place], [place] [address] Dr. Tan Oliveros XR CHEST 2 Von 03-10-2023 XR CHEST 2 V EXAM: XR CHEST 2 V HISTORY: SHORTNESS OF BREATH COMPARISON: 12/08/2022 TECHNIQUE: Chest X-ray, 2 views FINDINGS: Support devices: None. Lungs/pleura: No consolidation, effusion, or pneumothorax. Heart and mediastinum: Normal contours. Bones: No acute abnormality identified. Impression: No radiographic evidence of acute cardiopulmonary process. Electronically authenticated by: MIKE MARTÍNEZ Date: 2023-03-10 11:51 Normal [facility] CNOVSPon 03-07-2023 CNOVSP Normal [facility] CNPNon 03-07-2023 CNPN Normal [facility] Comprehensive metabolic 2000 panelon 03-07-2023 Albumin [Mass/Vol] 4.4 g/dL Normal 3.9-4.9 [facility] Comment on above: Order Comment: Speci men Type: BLOOD SPECIMENOrdering Facility: [facility] Address: [address] [id number] Performed By: #### 2 4323-8 ####[facility] [id number] [place] [address] ALP [Catalytic activity/Vol] 76 U/L Normal 38-113 [facility] Comment on above: Order Comment: Speci men Type: BLOOD SPECIMENOrdering Facility: [facility] Address: [address] [address] Performed By: #### 2 4323-8 ####[facility] [id number] [place] [address] ALT [Catalytic activity/Vol] 14 U/L Normal 10-54 [facility] Comment on above: Order Comment: Speci men Type: BLOOD SPECIMENOrdering Facility: [facility] Address: [address] [place] [address] Performed By: #### 2 4323-8 ####[facility] [id number] [place] [address] Anion gap [Moles/Vol] 10 mmol/L Normal 9-18 [facility] Comment on above: Order Comment: Speci men Type: BLOOD SPECIMENOrdering Facility: [facility] Address: [address] [place] [address] Performed By: #### 2 4323-8 ####[facility] [id number] [place] [address] AST [Catalytic activity/Vol] 21 U/L Normal 14-40 [facility] Comment on above: Order Comment: Speci men Type: BLOOD SPECIMENOrdering Facility: [facility] Address: [address] [place] [address] Performed By: #### 2 4323-8 ####[facility] [id number] [place] [address] Bilirubin [Mass/Vol] 0.5 mg/dL Normal 0.2-1.[address] [facility] Comment on above: Order Comment: Speci men Type: BLOOD SPECIMENOrdering Facility: [facility] Address: [address] [place] [address] Performed By: #### 2 4323-8 ####[facility] [id number] [place] [address] Calcium [Mass/Vol] 9.6 mg/dL Normal 8.5-10.2 [facility] Comment on above: Order Comment: Speci men Type: BLOOD SPECIMENOrdering Facility: [facility] Address: [address] [address] Performed By: #### 2 4323-8 ####[facility] [id number] [place] [address] Chloride [Moles/Vol] 107 mmol/L High 97-[address] [facility] Comment on above: Order Comment: Speci men Type: BLOOD SPECIMENOrdering Facility: [facility] Address: [address] [address] Performed By: #### 2 4323-8 ####[facility] [id number] [place] [address] CO2 [Moles/Vol] 24 mmol/L Normal 22-30 [facility] Comment on above: Order Comment: Speci men Type: BLOOD SPECIMENOrdering Facility: [facility] Address: [address] [place] [address] Performed By: #### 2 4323-8 ####[facility] [id number] [place] [address] Creatinine [Mass/Vol] 2.28 mg/dL High 0.73-1.22 [facility] Comment on above: Order Comment: Speci men Type: BLOOD SPECIMENOrdering Facility: [facility] Address: [address] [place] [address] Performed By: #### 2 4323-8 ####[facility] [id number] [place] [address] ESTIMATED GLOMERULAR FILTRATION RATE 28 mL/min/1.73m??? Low >=60 [facility] Comment on above: Order Comment: Speci men Type: BLOOD SPECIMENOrdering Facility: [facility] Address: [address] [place] [address] Result Comment: Viviana mated Glomerular Filtration Rate (eGFR) is calculated using the 2020 CKD-EPI creatinine equation. This equation utilizes serum creatinine, sex, and age as parameters. The creatinine assay has traceable calibration to isotope dilution-mass spectrometry. Refer to KDIGO guidelines for clinical interpretation. In patients with unstable renal function, e.g. those with acute kidney injury, the eGFR may not accurately reflect actual GFR. Performed By: #### 2 4323-8 ####[facility] [id number] [place] [address] Glucose [Mass/Vol] 118 mg/dL High 74-99 [facility] Comment on above: Order Comment: Speci men Type: BLOOD SPECIMENOrdering Facility: [facility] Address: [address] [address] [place], [place] [id number] Result Comment: The [place] [employer] (ADA) provides guidance for cutoff values for fasting glucose and random glucose. The ADA defines fasting as no caloric intake for at least 8 hours. Fasting plasma glucose results between 100 to 125 mg/dL indicate increased risk for diabetes (prediabetes).Fasting plasma glucose results greater than or equal to 126 mg/dL meet the criteria for diagnosis of diabetes. In the absence of unequivocal hyperglycemia, results should be confirmed by repeat testing. In a patient with classic symptoms of hyperglycemia or hyperglycemic crisis, random plasma glucose results greater than or equal to 200 mg/dL meet the criteria for diagnosis of diabetes.Reference: Standards of Medical Care in Diabetes 2016, [place] [employer]. Diabetes Care. 2016.39(Suppl 1). Performed By: #### 2 4323-8 ####[facility] LABCLIA [id number] [place] [address] Potassium [Moles/Vol] 4.2 mmol/L Normal 3.7-5.1 [facility] Comment on above: Order Comment: Speci oralia Type: BLOOD SPECIMENOrdering Facility: [facility] Address: [address] [place] [id number] Performed By: #### 2 4323-8 ####[facility] LABCLIA [id number] [place] [address] Protein [Mass/Vol] 6.2 g/dL Low 6.3-8.0 [facility] Comment on above: Order Comment: Speci men Type: BLOOD SPECIMENOrdering Facility: [facility] Address: [address] [address] Performed By: #### 2 4323-8 ####[facility] LABCLIA [id number] [place] [address] Sodium [Moles/Vol] 141 mmol/L Normal 136-144 [facility] Comment on above: Order Comment: Speci men Type: BLOOD SPECIMENOrdering Facility: [facility] Address: [address] [place] [address] Performed By: #### 2 4323-8 ####[facility] LABCLIA [id number] [place] [address] Urea nitrogen [Mass/Vol] 42 mg/dL High 9-24 [facility] Comment on above: Order Comment: Speci men Type: BLOOD SPECIMENOrdering Facility: [facility] Address: [address] [address] Performed By: #### 2 4323-8 ####[facility] LABCLIA [id number] [place] [address] CBC W Auto Differential pane l (Bld)on 02-21-2023 Basophils (Bld) [#/Vol] 0.05 10*3/uL Normal <0.11 [facility] Comment on above: Order Comment: Speci men Type: BLOOD SPECIMENOrdering Facility: [facility] Address: [address] [address] Performed By: #### 5 7021-8 ####[facility] LABCLIA [id number] [place] [address] Basophils/100 WBC (Bld) 0.8 % Normal [facility] Comment on above: Order Comment: Speci men Type: BLOOD SPECIMENOrdering Facility: [facility] Address: [address] [place] [address] Performed By: #### 5 7021-8 ####[facility] LABCLIA [id number] [place] [address] Differential cell count method Nom (Bld) Auto Normal [facility] Comment on above: Order Comment: Speci men Type: BLOOD SPECIMENOrdering Facility: [facility] Address: [address] [place] [address] Performed By: #### 5 7021-8 ####[facility] LABCLIA [id number] [place] [address] Eosinophils (Bld) [#/Vol] 0.24 10*3/uL Normal <0.46 [facility] Comment on above: Order Comment: Speci men Type: BLOOD SPECIMENOrdering Facility: [facility] Address: [address] [place] [address] Performed By: #### 5 7021-8 ####[facility] LABCLIA [id number] [place] [address] Eosinophils/100 WBC (Bld) 3.9 % Normal [facility] Comment on above: Order Comment: Speci men Type: BLOOD SPECIMENOrdering Facility: [facility] Address: [address] [place] [address] Performed By: #### 5 7021-8 ####[facility] LABCLIA [id number] [place] [address] Erythrocyte distribution width (RBC) [Ratio] 14.6 % Normal 11.5-15.0 [facility] Comment on above: Order Comment: Speci men Type: BLOOD SPECIMENOrdering Facility: [facility] Address: [address] [place] [address] Performed By: #### 5 7021-8 ####[facility] LABCLIA [id number] [place] [address] Hematocrit (Bld) [Volume fraction] 39.4 % Normal 39.0-51.0 [facility] Comment on above: Order Comment: Speci men Type: BLOOD SPECIMENOrdering Facility: [facility] Address: [address] [place] [address] Performed By: #### 5 7021-8 ####[facility] LABCLIA [id number] [place] [address] Hemoglobin (Bld) [Mass/Vol] 12.7 g/dL Low 13.0-17.0 [facility] Comment on above: Order Comment: Speci men Type: BLOOD SPECIMENOrdering Facility: [facility] Address: [address] [place] [address] Performed By: #### 5 7021-8 ####[facility] LABCLIA [id number] [place] [address] Immature granulocytes (Bld) [#/Vol] 0.03 10*3/uL Normal <0.10 [facility] Comment on above: Order Comment: Speci men Type: BLOOD SPECIMENOrdering Facility: [facility] Address: [address] [place] [address] Performed By: #### 5 7021-8 ####[facility] LABCLIA [id number] [place] [address] Immature granulocytes/100 WBC (Bld) 0.5 % Normal [facility] Comment on above: Order Comment: Speci men Type: BLOOD SPECIMENOrdering Facility: [facility] Address: [address] [place] [address] Performed By: #### 5 7021-8 ####[facility] LABCLIA [id number] [place] [address] Lymphocytes (Bld) [#/Vol] 0.81 10*3/uL Low 1.00-4.00 [facility] Comment on above: Order Comment: Speci men Type: BLOOD SPECIMENOrdering Facility: [facility] Address: [address] [place] [address] Performed By: #### 5 7021-8 ####[facility] LABCLIA [id number] [place] [address] Lymphocytes/100 WBC (Bld) 13.2 % Normal [facility] Comment on above: Order Comment: Speci men Type: BLOOD SPECIMENOrdering Facility: [facility] Address: [address] [place] [address] Performed By: #### 5 7021-8 ####[facility] LABCLIA [id number] [place] [address] MCH (RBC) [Entitic mass] 27.0 pg Normal 26.0-34.0 [facility] Comment on above: Order Comment: Speci men Type: BLOOD SPECIMENOrdering Facility: [facility] Address: [address] [place] [address] Performed By: #### 5 7021-8 ####[facility] LABCLIA [id number] [place] [address] MCHC (RBC) [Mass/Vol] 32.2 g/dL Normal 30.5-36.0 [facility] Comment on above: Order Comment: Speci men Type: BLOOD SPECIMENOrdering Facility: [facility] Address: [address] [address] Performed By: #### 5 7021-8 ####[facility] LABCLIA [id number] [place] [address] MCV (RBC) [Entitic vol] 83.8 fL Normal 80.0-100.0 [facility] Comment on above: Order Comment: Speci men Type: BLOOD SPECIMENOrdering Facility: [facility] Address: [address] [place] [address] Performed By: #### 5 7021-8 ####[facility] LABCLIA [id number] [place] [address] Monocytes (Bld) [#/Vol] 0.47 10*3/uL Normal <0.87 [facility] Comment on above: Order Comment: Speci men Type: BLOOD SPECIMENOrdering Facility: [facility] Address: [address] [place] [address] Performed By: #### 5 7021-8 ####[facility] LABCLIA [id number] [place] [address] Monocytes/100 WBC (Bld) 7.7 % Normal [facility] Comment on above: Order Comment: Speci men Type: BLOOD SPECIMENOrdering Facility: [facility] Address: [address] [place] [address] Performed By: #### 5 7021-8 ####[facility] LABCLIA [id number] [place] [address] Neutrophils (Bld) [#/Vol] 4.54 10*3/uL Normal 1.45-7.50 [facility] Comment on above: Order Comment: Speci men Type: BLOOD SPECIMENOrdering Facility: [facility] Address: [address] [place] [address] Performed By: #### 5 7021-8 ####[facility] LABCLIA [id number] [place] [address] Neutrophils/100 WBC (Bld) 73.9 % Normal [facility] Comment on above: Order Comment: Speci men Type: BLOOD SPECIMENOrdering Facility: [facility] Address: [address] [place] [address] Performed By: #### 5 7021-8 ####[facility] LABCLIA [id number] [place] [address] Nucleated RBC (Bld) [#/Vol] 10*3/uL Normal <0.01 [facility] Comment on above: Order Comment: Speci men Type: BLOOD SPECIMENOrdering Facility: [facility] Address: [address] [place] [address] Performed By: #### 5 7021-8 ####[facility] LABCLIA [id number] [place] [address] Nucleated RBC/100 WBC (Bld) [Ratio] 0.0 /100 WBC Normal [facility] Comment on above: Order Comment: Speci men Type: BLOOD SPECIMENOrdering Facility: [facility] Address: [address] [place] [address] Performed By: #### 5 7021-8 ####[facility] LABCLIA [id number] [place] [address] Platelet mean volume (Bld) [Entitic vol] 9.3 fL Normal 9.0-12.7 [facility] Comment on above: Order Comment: Speci men Type: BLOOD SPECIMENOrdering Facility: [facility] Address: [address] [place] [address] Performed By: #### 5 7021-8 ####[facility] LABCLIA [id number] [place] [address] Platelets (Bld) [#/Vol] 208 10*3/uL Normal 150-400 [facility] Comment on above: Order Comment: Speci men Type: BLOOD SPECIMENOrdering Facility: [facility] Address: [address] [place] [address] Performed By: #### 5 7021-8 ####[facility] LABIA [id number] [place] [address] RBC (Bld) [#/Vol] 4.70 10*6/uL Normal 4.20-6.00 [facility] Comment on above: Order Comment: Speci men Type: BLOOD SPECIMENOrdering Facility: [facility] Address: [address] [address] Performed By: #### 5 7021-8 ####[facility] LABIA [id number] [place] [address] WBC (Bld) [#/Vol] 6.14 10*3/uL Normal 3.70-11.00 [facility] Comment on above: Order Comment: Speci men Type: BLOOD SPECIMENOrdering Facility: [facility] Address: [address] [place] [address] Performed By: #### 5 7021-8 ####[facility] LABCLIA [id number] [place] [address] CNOVSPon 02-21-2023 CNOVSP Normal [facility] CNPNon 02-21-2023 CNPN Normal [facility] Comprehensive metabolic 2000 panelon 02-21-2023 Albumin [Mass/Vol] 4.4 g/dL Normal 3.9-4.9 [facility] Comment on above: Order Comment: Speci men Type: BLOOD SPECIMENOrdering Facility: [facility] Address: [address] [place] [address] Performed By: #### 2 4323-8 ####[facility] LABCLIA [id number] [place] [address] ALP [Catalytic activity/Vol] 79 U/L Normal 38-113 [facility] Comment on above: Order Comment: Speci men Type: BLOOD SPECIMENOrdering Facility: [facility] Address: [address] [place] [address] Performed By: #### 2 4323-8 ####[facility] LABCLIA [id number] [place] [address] ALT [Catalytic activity/Vol] 14 U/L Normal 10-54 [facility] Comment on above: Order Comment: Speci men Type: BLOOD SPECIMENOrdering Facility: [facility] Address: [address] [place] [address] Performed By: #### 2 4323-8 ####[facility] LABCLIA [id number] [place] [address] Anion gap [Moles/Vol] 12 mmol/L Normal 9-18 [facility] Comment on above: Order Comment: Speci men Type: BLOOD SPECIMENOrdering Facility: [facility] Address: [address] [place] [address] Performed By: #### 2 4323-8 ####[facility] LABCLIA [id number] [place] [address] AST [Catalytic activity/Vol] 24 U/L Normal 14-40 [facility] Comment on above: Order Comment: Speci men Type: BLOOD SPECIMENOrdering Facility: [facility] Address: [address] [address] Performed By: #### 2 4323-8 ####[facility] LABCLIA [id number] [place] [address] Bilirubin [Mass/Vol] 0.5 mg/dL Normal 0.2-1.[address] [facility] Comment on above: Order Comment: Speci men Type: BLOOD SPECIMENOrdering Facility: [facility] Address: [address] [address] Performed By: #### 2 4323-8 ####[facility] LABCL[facility] [id number] [place] [address] Calcium [Mass/Vol] 9.2 mg/dL Normal 8.5-10.2 [facility] Comment on above: Order Comment: Speci men Type: BLOOD SPECIMENOrdering Facility: [facility] Address: [address] [address] Performed By: #### 2 4323-8 ####[facility] LABCLIA [id number] [place] [address] Chloride [Moles/Vol] 105 mmol/L Normal 97-[address] [facility] Comment on above: Order Comment: Speci men Type: BLOOD SPECIMENOrdering Facility: [facility] Address: [address] [address] Performed By: #### 2 4323-8 ####[facility] LABCLIA [id number] [place] [address] CO2 [Moles/Vol] 25 mmol/L Normal 22-30 [facility] Comment on above: Order Comment: Speci men Type: BLOOD SPECIMENOrdering Facility: [facility] Address: [address] [address] Performed By: #### 2 4323-8 ####[facility] LABCLIA [id number] [place] [address] Creatinine [Mass/Vol] 2.23 mg/dL High 0.73-1.22 [facility] Comment on above: Order Comment: Vero barton Type: BLOOD SPECIMENOrdering Facility: [facility] Address: [address] [place] [address] Performed By: #### 2 4323-8 ####[facility] LABCLIA [id number] [place] [address] ESTIMATED GLOMERULAR FILTRATION RATE 29 mL/min/1.73m??? Low >=60 [facility] Comment on above: Order Comment: Vero barton Type: BLOOD SPECIMENOrdering Facility: [facility] Address: [address] [place] [address] Result Comment: Viviana mated Glomerular Filtration Rate (eGFR) is calculated using the 2020 CKD-EPI creatinine equation. This equation utilizes serum creatinine, sex, and age as parameters. The creatinine assay has traceable calibration to isotope dilution-mass spectrometry. Refer to KDIGO guidelines for clinical interpretation. In patients with unstable renal function, e.g. those with acute kidney injury, the eGFR may not accurately reflect actual GFR. Performed By: #### 2 4323-8 ####[facility] LABCLIA [id number] [place] [address] Glucose [Mass/Vol] 117 mg/dL High 74-99 [facility] Comment on above: Order Comment: Vero barton Type: BLOOD SPECIMENOrdering Facility: [facility] Address: [address] [place] [address] Result Comment: The [place] [employer] (ADA) provides guidance for cutoff values for fasting glucose and random glucose. The ADA defines fasting as no caloric intake for at least 8 hours. Fasting plasma glucose results between 100 to 125 mg/dL indicate increased risk for diabetes (prediabetes).Fasting plasma glucose results greater than or equal to 126 mg/dL meet the criteria for diagnosis of diabetes. In the absence of unequivocal hyperglycemia, results should be confirmed by repeat testing. In a patient with classic symptoms of hyperglycemia or hyperglycemic crisis, random plasma glucose results greater than or equal to 200 mg/dL meet the criteria for diagnosis of diabetes.Reference: Standards of Medical Care in Diabetes 2016, [place] [employer]. Diabetes Care. 2016.39(Suppl 1). Performed By: #### 2 4323-8 ####[facility] LABCLIA [id number] [place] [address] Potassium [Moles/Vol] 4.9 mmol/L Normal 3.7-5.1 [facility] Comment on above: Order Comment: Speci men Type: BLOOD SPECIMENOrdering Facility: [facility] Address: [address] [address] Performed By: #### 2 4323-8 ####[facility] LABCLIA [id number] [place] [address] Protein [Mass/Vol] 6.4 g/dL Normal 6.3-8.0 [facility] Comment on above: Order Comment: Speci men Type: BLOOD SPECIMENOrdering Facility: [facility] Address: [address] [address] Performed By: #### 2 4323-8 ####[facility] LABCLIA [id number] [place] [address] Sodium [Moles/Vol] 142 mmol/L Normal 136-144 [facility] Comment on above: Order Comment: Speci men Type: BLOOD SPECIMENOrdering Facility: [facility] Address: [address] [address] Performed By: #### 2 4323-8 ####[facility] LABCLIA [id number] [place] [address] Urea nitrogen [Mass/Vol] 36 mg/dL High 9-24 [facility] Comment on above: Order Comment: Speci men Type: BLOOD SPECIMENOrdering Facility: [facility] Address: [address] [address] Performed By: #### 2 4323-8 ####[facility] LABCLIA [id number] [place] [address] Beverly Rogerskimberlyseda 02-22-20 Cortisol [Mass/Vol] 11.2 ug/dL Normal 4.8-19.5 [facility] Comment on above: Order Comment: Virginiai men Type: BLOOD SPECIMENOrdering Facility: [facility] Address: [address] [address] Result Comment: Prov ided reference range is from 6-10 AM sample collection time.Cortisol Reference Range: 6-10 AM = 4.8-19.5 ug/dL, 4-8 PM = 2.5-11.9 ug/dL Performed By: #### 3 016-3, 2143-6 ####[facility] LABCLIA [id number] [address] [facility] HbA1c (Bld)on 02-21-2023 Average glucose Estimated from glycated hemoglobin (Bld) [Mass/Vol] 103 mg/dL Normal [facility] Comment on above: Order Comment: Virginiai oralia Type: BLOOD SPECIMENOrdering Facility: [facility] Address: [address] [address] Result Comment: eAG: (Estimated average glucose) is a calculated value from HgbA1c and is patient financial representative of the average blood glucose level in the last 2-3 month period. Performed By: #### 5 5454-3 ####[facility] LABCLIA [id number] [address] [facility] HbA1c (Bld) [Mass fraction] 5.2 % Normal 4.3-5.6 [facility] Comment on above: Order Comment: Virginiai men Type: BLOOD SPECIMENOrdering Facility: [facility] Address: [address] [address] Result Comment: [place] [employer] guidelines indicate that patients with HgbA1c in the range 5.7-6.4% are at increased risk for development of diabetes, and intervention by lifestyle modification may be beneficial. HgbA1c greater or equal to 6.5% is considered diagnostic of diabetes. Performed By: #### 5 5454-3 ####[facility] LABCLIA [id number] [place] [address] [place] TSH SerPl-aCncon 02-21-2023 TSH Qn 3.220 m[IU]/L Normal 0.270-4.200 [facility] Comment on above: Order Comment: Speci men Type: BLOOD SPECIMENOrdering Facility: [facility] Address: [address] [place] [address] Performed By: #### 3 016-3, 2143-6 ####[facility] LABCLIA [id number] [address] [place] CNOVSPon 01-31-2023 CNOVSP Normal [facility] CNPNon 01-31-2023 CNPN Normal [facility] Consultation Noteon 02-01-20 Consultation Note [id number]:127 Normal [facility] CBC W Auto Differential pane l (Bld)on 01-23-2023 Basophils (Bld) [#/Vol] 0.06 10*3/uL Normal <0.11 [facility] Comment on above: Order Comment: Speci men Type: BLOOD SPECIMENOrdering Facility: [facility] Address: [address] [place] [address] Performed By: #### 5 7021-8 ####[facility] LABCLIA [id number] [place] [address] Basophils/100 WBC (Bld) 1.0 % Normal [facility] Comment on above: Order Comment: Speci men Type: BLOOD SPECIMENOrdering Facility: [facility] Address: [address] [place] [address] Performed By: #### 5 7021-8 ####[facility] LABCLIA [id number] [place] [address] Differential cell count method Nom (Bld) Auto Normal [facility] Comment on above: Order Comment: Speci men Type: BLOOD SPECIMENOrdering Facility: [facility] Address: [address] [place] [address] Performed By: #### 5 7021-8 ####[facility] LABCLIA [id number] [place] [address] Eosinophils (Bld) [#/Vol] 0.23 10*3/uL Normal <0.46 [facility] Comment on above: Order Comment: Speci men Type: BLOOD SPECIMENOrdering Facility: [facility] Address: [address] [place] [address] Performed By: #### 5 7021-8 ####[facility] LABCLIA [id number] [place] [address] Eosinophils/100 WBC (Bld) 3.7 % Normal [facility] Comment on above: Order Comment: Speci men Type: BLOOD SPECIMENOrdering Facility: [facility] Address: [address] [place] [address] Performed By: #### 5 7021-8 ####[facility] LABCLIA [id number] [place] [address] Erythrocyte distribution width (RBC) [Ratio] 15.1 % High 11.5-15.0 [facility] Comment on above: Order Comment: Speci men Type: BLOOD SPECIMENOrdering Facility: [facility] Address: [address] [place] [address] Performed By: #### 5 7021-8 ####[facility] LABCLIA [id number] [place] [address] Hematocrit (Bld) [Volume fraction] 37.6 % Low 39.0-51.0 [facility] Comment on above: Order Comment: Speci men Type: BLOOD SPECIMENOrdering Facility: [facility] Address: [address] [place] [address] Performed By: #### 5 7021-8 ####[facility] LABCLIA [id number] [place] [address] Hemoglobin (Bld) [Mass/Vol] 12.4 g/dL Low 13.0-17.0 [facility] Comment on above: Order Comment: Speci men Type: BLOOD SPECIMENOrdering Facility: [facility] Address: [address] [place] [address] Performed By: #### 5 7021-8 ####[facility] LABCLIA [id number] [place] [address] Immature granulocytes (Bld) [#/Vol] 10*3/uL Normal <0.10 [facility] Comment on above: Order Comment: Speci men Type: BLOOD SPECIMENOrdering Facility: [facility] Address: [address] [place] [address] Performed By: #### 5 7021-8 ####[facility] LABCLIA [id number] [place] [address] Immature granulocytes/100 WBC (Bld) 0.3 % Normal [facility] Comment on above: Order Comment: Speci men Type: BLOOD SPECIMENOrdering Facility: [facility] Address: [address] [place] [address] Performed By: #### 5 7021-8 ####[facility] LABCLIA [id number] [place] [address] Lymphocytes (Bld) [#/Vol] 0.91 10*3/uL Low 1.00-4.00 [facility] Comment on above: Order Comment: Speci men Type: BLOOD SPECIMENOrdering Facility: [facility] Address: [address] [place] [address] Performed By: #### 5 7021-8 ####[facility] LABCLIA [id number] [place] [address] Lymphocytes/100 WBC (Bld) 14.8 % Normal [facility] Comment on above: Order Comment: Speci men Type: BLOOD SPECIMENOrdering Facility: [facility] Address: [address] [address] Performed By: #### 5 7021-8 ####[facility] LABCLIA [id number] [place] [address] MCH (RBC) [Entitic mass] 27.1 pg Normal 26.0-34.0 [facility] Comment on above: Order Comment: Speci men Type: BLOOD SPECIMENOrdering Facility: [facility] Address: [address] [place] [address] Performed By: #### 5 7021-8 ####[facility] LABCLIA [id number] [place] [address] MCHC (RBC) [Mass/Vol] 33.0 g/dL Normal 30.5-36.0 [facility] Comment on above: Order Comment: Speci men Type: BLOOD SPECIMENOrdering Facility: [facility] Address: [address] [place] [address] Performed By: #### 5 7021-8 ####[facility] LABIA [id number] [place] [address] MCV (RBC) [Entitic vol] 82.1 fL Normal 80.0-100.0 [facility] Comment on above: Order Comment: Speci men Type: BLOOD SPECIMENOrdering Facility: [facility] Address: [address] [place] [address] Performed By: #### 5 7021-8 ####[facility] LABCLIA [id number] [place] [address] Monocytes (Bld) [#/Vol] 0.45 10*3/uL Normal <0.87 [facility] Comment on above: Order Comment: Speci men Type: BLOOD SPECIMENOrdering Facility: [facility] Address: [address] [place] [address] Performed By: #### 5 7021-8 ####[facility] LABCLIA [id number] [place] [address] Monocytes/100 WBC (Bld) 7.3 % Normal [facility] Comment on above: Order Comment: Speci men Type: BLOOD SPECIMENOrdering Facility: [facility] Address: [address] [place] [address] Performed By: #### 5 7021-8 ####[facility] LABCLIA [id number] [place] [address] Neutrophils (Bld) [#/Vol] 4.47 10*3/uL Normal 1.45-7.50 [facility] Comment on above: Order Comment: Speci men Type: BLOOD SPECIMENOrdering Facility: [facility] Address: [address] [place] [address] Performed By: #### 5 7021-8 ####[facility] LABCLIA [id number] [place] [address] Neutrophils/100 WBC (Bld) 72.9 % Normal [facility] Comment on above: Order Comment: Speci men Type: BLOOD SPECIMENOrdering Facility: [facility] Address: [address] [place] [address] Performed By: #### 5 7021-8 ####[facility] LABCLIA [id number] [place] [address] Nucleated RBC (Bld) [#/Vol] 10*3/uL Normal <0.01 [facility] Comment on above: Order Comment: Speci men Type: BLOOD SPECIMENOrdering Facility: [facility] Address: [address] [place] [address] Performed By: #### 5 7021-8 ####[facility] LABCLIA [id number] [place] [address] Nucleated RBC/100 WBC (Bld) [Ratio] 0.0 /100 WBC Normal [facility] Comment on above: Order Comment: Speci men Type: BLOOD SPECIMENOrdering Facility: [facility] Address: [address] [place] [address] Performed By: #### 5 7021-8 ####[facility] LABCLIA [id number] [place] [address] Platelet mean volume (Bld) [Entitic vol] 8.8 fL Low 9.0-12.7 [facility] Comment on above: Order Comment: Speci men Type: BLOOD SPECIMENOrdering Facility: [facility] Address: [address] [place] [address] Performed By: #### 5 7021-8 ####[facility] LABCLIA [id number] [place] [address] Platelets (Bld) [#/Vol] 202 10*3/uL Normal 150-400 [facility] Comment on above: Order Comment: Speci men Type: BLOOD SPECIMENOrdering Facility: [facility] Address: [address] [place] [address] Performed By: #### 5 7021-8 ####[facility] LABCLIA [id number] [place] [address] RBC (Bld) [#/Vol] 4.58 10*6/uL Normal 4.20-6.00 [facility] Comment on above: Order Comment: Speci men Type: BLOOD SPECIMENOrdering Facility: [facility] Address: [address] [place] [address] Performed By: #### 5 7021-8 ####[facility] LABCLIA [id number] [place] [address] WBC (Bld) [#/Vol] 6.14 10*3/uL Normal 3.70-11.00 [facility] Comment on above: Order Comment: Speci men Type: BLOOD SPECIMENOrdering Facility: [facility] Address: [address] [place] [address] Performed By: #### 5 7021-8 ####[facility] LABCLIA [id number] [place] [address] CNOVSPon 01-23-2023 CNOVSP Normal [facility] CT CHEST WO IVCONon 01-24-20 CT CHEST WO IVCON Normal [facility] 2000 panelon 01-23-2023 Albumin [Mass/Vol] 4.4 g/dL Normal 3.9-4.9 [facility] Comment on above: Order Comment: Speci men Type: BLOOD SPECIMENOrdering Facility: [facility] Address: [address] [place] [address] Performed By: #### 2 4323-8 ####[facility] LABCLIA [id number] [place] [address] ALP [Catalytic activity/Vol] 76 U/L Normal 38-113 [facility] Comment on above: Order Comment: Speci men Type: BLOOD SPECIMENOrdering Facility: [facility] Address: [address] [place] [address] Performed By: #### 2 4323-8 ####[facility] LABCLIA [id number] [place] [address] ALT [Catalytic activity/Vol] 16 U/L Normal 10-54 [facility] Comment on above: Order Comment: Speci men Type: BLOOD SPECIMENOrdering Facility: [facility] Address: [address] [place] [address] Performed By: #### 2 4323-8 ####[facility] LABCLIA [id number] [place] [address] Anion gap [Moles/Vol] 7 mmol/L Low 9-18 [facility] Comment on above: Order Comment: Speci men Type: BLOOD SPECIMENOrdering Facility: [facility] Address: [address] [place] [address] Performed By: #### 2 4323-8 ####[facility] LABCLIA [id number] [place] [address] AST [Catalytic activity/Vol] 22 U/L Normal 14-40 [facility] Comment on above: Order Comment: Speci men Type: BLOOD SPECIMENOrdering Facility: [facility] Address: [address] [address] Performed By: #### 2 4323-8 ####[facility] LABCLIA [id number] [place] [address] Bilirubin [Mass/Vol] 0.4 mg/dL Normal 0.2-1.[address] [facility] Comment on above: Order Comment: Speci men Type: BLOOD SPECIMENOrdering Facility: [facility] Address: [address] [address] Performed By: #### 2 4323-8 ####[facility] LABCLIA [id number] [place] [address] Calcium [Mass/Vol] 9.0 mg/dL Normal 8.5-10.2 [facility] Comment on above: Order Comment: Speci men Type: BLOOD SPECIMENOrdering Facility: [facility] Address: [address] [address] Performed By: #### 2 4323-8 ####[facility] LABCLIA [id number] [place] [address] Chloride [Moles/Vol] 106 mmol/L High 97-[address] [facility] Comment on above: Order Comment: Speci men Type: BLOOD SPECIMENOrdering Facility: [facility] Address: [address] [address] Performed By: #### 2 4323-8 ####[facility] LABCLIA [id number] [place] [address] CO2 [Moles/Vol] 25 mmol/L Normal 22-30 [facility] Comment on above: Order Comment: Speci men Type: BLOOD SPECIMENOrdering Facility: [facility] Address: [address] [address] Performed By: #### 2 4323-8 ####[facility] LABCLIA [id number] [place] [address] Creatinine [Mass/Vol] 2.30 mg/dL High 0.73-1.22 [facility] Comment on above: Order Comment: Vero barton Type: BLOOD SPECIMENOrdering Facility: [facility] Address: [address] [address] Performed By: #### 2 4323-8 ####[facility] LABIA [id number] [place] [address] ESTIMATED GLOMERULAR FILTRATION RATE 27 mL/min/1.73m??? Low >=60 [facility] Comment on above: Order Comment: Vero barton Type: BLOOD SPECIMENOrdering Facility: [facility] Address: [address] [place] [address] Result Comment: Viviana mated Glomerular Filtration Rate (eGFR) is calculated using the 2020 CKD-EPI creatinine equation. This equation utilizes serum creatinine, sex, and age as parameters. The creatinine assay has traceable calibration to isotope dilution-mass spectrometry. Refer to KDIGO guidelines for clinical interpretation. In patients with unstable renal function, e.g. those with acute kidney injury, the eGFR may not accurately reflect actual GFR. Performed By: #### 2 4323-8 ####[facility] LABIA [id number] [place] [address] Glucose [Mass/Vol] 100 mg/dL High 74-99 [facility] Comment on above: Order Comment: Vero barton Type: BLOOD SPECIMENOrdering Facility: [facility] Address: [address] [place] [address] Result Comment: The [place] Diabetes Association (ADA) provides guidance for cutoff values for fasting glucose and random glucose. The ADA defines fasting as no caloric intake for at least 8 hours. Fasting plasma glucose results between 100 to 125 mg/dL indicate increased risk for diabetes (prediabetes).Fasting plasma glucose results greater than or equal to 126 mg/dL meet the criteria for diagnosis of diabetes. In the absence of unequivocal hyperglycemia, results should be confirmed by repeat testing. In a patient with classic symptoms of hyperglycemia or hyperglycemic crisis, random plasma glucose results greater than or equal to 200 mg/dL meet the criteria for diagnosis of diabetes.Reference: Standards of Medical Care in Diabetes 2016, [place] [employer]. Diabetes Care. 2016.39(Suppl 1). Performed By: #### 2 4323-8 ####[facility] LABCLIA [id number] [place] [address] Potassium [Moles/Vol] 4.2 mmol/L Normal 3.7-5.1 [facility] Comment on above: Order Comment: Speci men Type: BLOOD SPECIMENOrdering Facility: [facility] Address: [address] [address] Performed By: #### 2 4323-8 ####[facility] LABCLIA [id number] [place] [address] Protein [Mass/Vol] 6.5 g/dL Normal 6.3-8.0 [facility] Comment on above: Order Comment: Speci men Type: BLOOD SPECIMENOrdering Facility: [facility] Address: [address] [address] Performed By: #### 2 4323-8 ####[facility] LABCLIA [id number] [place] [address] Sodium [Moles/Vol] 138 mmol/L Normal 136-144 [facility] Comment on above: Order Comment: Speci men Type: BLOOD SPECIMENOrdering Facility: [facility] Address: [address] [address] Performed By: #### 2 4323-8 ####[facility] LABCLIA [id number] [place] [address] Urea nitrogen [Mass/Vol] 36 mg/dL High 9-24 [facility] Comment on above: Order Comment: Speci men Type: BLOOD SPECIMENOrdering Facility: [facility] Address: [address] [address] Performed By: #### 2 4323-8 ####[facility] LABCLIA [id number] [place] [address] Beverly Koehler 01-24-20 Cortisol [Mass/Vol] 6.8 ug/dL Normal 4.8-19.5 [facility] Comment on above: Order Comment: Vero barton Type: BLOOD SPECIMENOrdering Facility: [facility] Address: [address] [place] [address] Result Comment: Prov ided reference range is from 6-10 AM sample collection time.Cortisol Reference Range: 6-10 AM = 4.8-19.5 ug/dL, 4-8 PM = 2.5-11.9 ug/dL Performed By: #### 3 016-3, 2143-6 ####[facility] LABCLIA [id number] [address] [place] HbA1c (Bld)on 01-23-2023 Average glucose Estimated from glycated hemoglobin (Bld) [Mass/Vol] 105 mg/dL Normal [facility] Comment on above: Order Comment: Vero barton Type: BLOOD SPECIMENOrdering Facility: [facility] Address: [address] [place] [address] Result Comment: eAG: (Estimated average glucose) is a calculated value from HgbA1c and is patient financial representative of the average blood glucose level in the last 2-3 month period. Performed By: #### 5 5454-3 ####[facility] LABCLIA [id number] [address] [place] HbA1c (Bld) [Mass fraction] 5.3 % Normal 4.3-5.6 [facility] Comment on above: Order Comment: [facility] Type: BLOOD SPECIMENOrdering Facility: [facility] Address: [address] [place] [address] Result Comment: [place] Diabetes Association guidelines indicate that patients with HgbA1c in the range 5.7-6.4% are at increased risk for development of diabetes, and intervention by lifestyle modification may be beneficial. HgbA1c greater or equal to 6.5% is considered diagnostic of diabetes. Performed By: #### 5 5454-3 ####[facility] LABCLIA [id number] [address] [id number] [place] TSH SerPl-aCncon 01-23-2023 TSH Qn 2.850 m[IU]/L Normal 0.270-4.200 [facility] Comment on above: Order Comment: Speci men Type: BLOOD SPECIMENOrdering Facility: [facility] Address: [address] [place] [address] Performed By: #### 3 016-3, 2143-6 ####[facility] LABCLIA [id number] [address] [id number] [place] ECHOCARDIO M/2D COMPLETEon 0 01-11-2023 ECHOCARDIO M/2D COMPLETE Patient: JUAN JOSE AUSTIN Exam Date: 01/11/2023 : 1940 Gender:M Ordering : DR YOAN SNEED . Admission #: [id number] Family : DR CASEY CASTANEDA M.D. Order #: [id number] CLICK HERE TO VIEW EXAM ECHOCARDIOGRAM REPORT PROCEDURE: CARDIO PULMONARY ECHOCARDIO M/2D COMP INDICATIONS: Syncope, hypertension, renal failure COMPARISON: None. DESCRIPTION: COMPLETE ECHOCARDIOGRAM Real-time transthoracic echocardiography with 2D, M-mode, spectral and color flow Doppler performed. QUALITY: LEFT VENTRICLE: Mild dilatation. Mild concentric left ventricular hypertrophy. LV EF: Normal left ventricular ejection fraction, (>55%). No obvious wall motion abnormalities. DIASTOLIC: Diastolic function is indeterminate. ATRIAL SEPTUM: Inadequately seen. LEFT ATRIUM: Severe dilatation. RIGHT ATRIUM: Moderate dilatation. RIGHT VENTRICLE: Mild dilatation. Normal right ventricular systolic function. TRICUSPID VALVE: Normal mobility and thickness. Trivial regurgitation. Unable to estimate right ventricular systolic pressure due to lack of measurable tricuspid regurgitation. MITRAL VALVE: Normal mobility and thickness. No evidence of mitral valve stenosis. Mild mitral regurgitation. AORTIC VALVE: Normal trileaflet appearance. Normal leaflet mobility. No evidence of aortic valve stenosis. Multifocal calcifications. Trivial aortic regurgitation. AORTIC ROOT: Normal diameter and appearance. PULMONIC VALVE: Normal thickness and mobility. No stenosis. No regurgitation. PERICARDIUM: Anterior free space; trivial effusion versus fat pad. IVC: Not well visualized. CONCLUSION: Global left ventricular systolic function is normal; visually estimated ejection fraction is 55 to 60%. No wall motion abnormalities. The left ventricle is mildly dilated. Mild left ventricular hypertrophy. Diastolic function is indeterminate. Biatrial enlargement. The right ventricle is mildly dilated with preserved systolic function. Mild mitral regurgitation. Anterior free space; trivial effusion versus fat pad. Adult Echocardiography Procedure Report Left Ventricle LVEDD (3.7 - 5.6 cm): 5.85 cm LVESD (2.2 - 4.0 cm): 4.03 cm LVIVS thickness (0.6 - 1.2 cm): 1.35 cm LVPW thickness (0.5 - 1.0 cm): 1.06 cm e': 0.08 m/s E - e': 8.29 LVOT Max Gradient: 2.93 mm[Hg] Peak Velocity (LVOT): 0.86 m/s Mean Velocity (LVOT): 0.63 m/s LVOT Diameter 2.46 cm Left Ventricular Ejection Fraction: 58.13 %, 58.13 % Left Atrium LA Volume Index (2D A2C): 91.94 ml, 91.94 ml Left Atrium Systolic Dimension: 4.29 cm Mitral Valve MV E to A Ratio: 0.84 Mitral Valve A-Wave Peak Velocity: 0.79 m/s Mitral Valve E-Wave Peak Velocity: 0.67 m/s Right Ventricle Aorta AO Root Diam: 3.65 cm Aortic Valve AoV Area (Peak Ken): 2.42 cm2, 2.42 cm2 AoV Area (VTI): 2.43 cm2, 2.43 cm2 Peak Velocity(Antegrade Flow): 1.68 m/s Peak Gradient(Antegrade Flow): 11.32 mm[Hg] Mean Velocity(Antegrade Flow): 1.11 m/s Mean Gradient(Antegrade Flow): 5.81 mm[Hg] Velocity Time Integral: 38.73 cm Tricuspid Valve Peak Velocity: 0.52 m/s Pulmonic Valve Peak Velocity: 1.11 m/s, 1.32 m/s Peak Gradient: 4.92 mm[Hg], 6.92 mm[Hg] Right Atrium Right Atrium Systolic Pressure: 48.88 ml, 48.88 ml Dictated by: Brandie Michel M.D. on 01/11/2023 at 15:26 Approved by: Brandie Michel M.D. on 01/11/2023 at 15:32 Normal [facility] CNPNon 01-08-2023 CNPN Normal [facility] CNOVSPon 01-02-2023 CNOVSP Normal [facility] CBC W Auto Differential pane l (Bld)on 12-31-2022 Basophils (Bld) [#/Vol] 0.06 10*3/uL Normal <0.11 [facility] Comment on above: Order Comment: Speci men Type: BLOOD SPECIMENOrdering Facility: [facility] Address: [address] [address] Performed By: #### 5 7021-8 ####[facility] LABCLIA [id number] [place] [address] Basophils/100 WBC (Bld) 0.7 % Normal [facility] Comment on above: Order Comment: Speci men Type: BLOOD SPECIMENOrdering Facility: [facility] Address: [address] [place] [address] Performed By: #### 5 7021-8 ####[facility] LABCLIA [id number] [place] [address] Differential cell count method Nom (Bld) Auto Normal [facility] Comment on above: Order Comment: Speci men Type: BLOOD SPECIMENOrdering Facility: [facility] Address: [address] [place] [address] Performed By: #### 5 7021-8 ####[facility] LABCLIA [id number] [place] [address] Eosinophils (Bld) [#/Vol] 0.25 10*3/uL Normal <0.46 [facility] Comment on above: Order Comment: Speci men Type: BLOOD SPECIMENOrdering Facility: [facility] Address: [address] [place] [address] Performed By: #### 5 7021-8 ####[facility] LABCLIA [id number] [place] [address] Eosinophils/100 WBC (Bld) 3.1 % Normal [facility] Comment on above: Order Comment: Speci men Type: BLOOD SPECIMENOrdering Facility: [facility] Address: [address] [place] [address] Performed By: #### 5 7021-8 ####[facility] LABCLIA [id number] [place] [address] Erythrocyte distribution width (RBC) [Ratio] 16.1 % High 11.5-15.0 [facility] Comment on above: Order Comment: Speci men Type: BLOOD SPECIMENOrdering Facility: [facility] Address: [address] [place] [address] Performed By: #### 5 7021-8 ####[facility] LABCLIA [id number] [place] [address] Hematocrit (Bld) [Volume fraction] 39.5 % Normal 39.0-51.0 [facility] Comment on above: Order Comment: Speci men Type: BLOOD SPECIMENOrdering Facility: [facility] Address: [address] [place] [address] Performed By: #### 5 7021-8 ####[facility] LABCLIA [id number] [place] [address] Hemoglobin (Bld) [Mass/Vol] 12.8 g/dL Low 13.0-17.0 [facility] Comment on above: Order Comment: Speci men Type: BLOOD SPECIMENOrdering Facility: [facility] Address: [address] [place] [address] Performed By: #### 5 7021-8 ####[facility] LABCLIA [id number] [place] [address] Immature granulocytes (Bld) [#/Vol] 0.03 10*3/uL Normal <0.10 [facility] Comment on above: Order Comment: Speci men Type: BLOOD SPECIMENOrdering Facility: [facility] Address: [address] [place] [address] Performed By: #### 5 7021-8 ####[facility] LABCLIA [id number] [place] [address] Immature granulocytes/100 WBC (Bld) 0.4 % Normal [facility] Comment on above: Order Comment: Speci men Type: BLOOD SPECIMENOrdering Facility: [facility] Address: [address] [place] [address] Performed By: #### 5 7021-8 ####[facility] LABCLIA [id number] [place] [address] Lymphocytes (Bld) [#/Vol] 0.93 10*3/uL Low 1.00-4.00 [facility] Comment on above: Order Comment: Speci men Type: BLOOD SPECIMENOrdering Facility: [facility] Address: [address] [place] [address] Performed By: #### 5 7021-8 ####[facility] LABCLIA [id number] [place] [address] Lymphocytes/100 WBC (Bld) 11.6 % Normal [facility] Comment on above: Order Comment: Speci men Type: BLOOD SPECIMENOrdering Facility: [facility] Address: [address] [place] [address] Performed By: #### 5 7021-8 ####[facility] LABCLIA [id number] [place] [address] MCH (RBC) [Entitic mass] 26.4 pg Normal 26.0-34.0 [facility] Comment on above: Order Comment: Speci men Type: BLOOD SPECIMENOrdering Facility: [facility] Address: [address] [place] [address] Performed By: #### 5 7021-8 ####[facility] LABCLIA [id number] [place] [address] MCHC (RBC) [Mass/Vol] 32.4 g/dL Normal 30.5-36.0 [facility] Comment on above: Order Comment: Speci men Type: BLOOD SPECIMENOrdering Facility: [facility] Address: [address] [place] [address] Performed By: #### 5 7021-8 ####[facility] LABCLIA [id number] [place] [address] MCV (RBC) [Entitic vol] 81.4 fL Normal 80.0-100.0 [facility] Comment on above: Order Comment: Speci men Type: BLOOD SPECIMENOrdering Facility: [facility] Address: [address] [address] Performed By: #### 5 7021-8 ####[facility] LABCLIA [id number] [place] [address] Monocytes (Bld) [#/Vol] 0.49 10*3/uL Normal <0.87 [facility] Comment on above: Order Comment: Speci men Type: BLOOD SPECIMENOrdering Facility: [facility] Address: [address] [address] Performed By: #### 5 7021-8 ####[facility] LABCLIA [id number] [place] [address] Monocytes/100 WBC (Bld) 6.1 % Normal [facility] Comment on above: Order Comment: Speci men Type: BLOOD SPECIMENOrdering Facility: [facility] Address: [address] Performed By: #### 5 7021-8 ####[facility] LABCLIA [id number] [place] [address] Neutrophils (Bld) [#/Vol] 6.25 10*3/uL Normal 1.45-7.50 [facility] Comment on above: Order Comment: Speci men Type: BLOOD SPECIMENOrdering Facility: [facility] Address: [address] [place] [address] Performed By: #### 5 7021-8 ####[facility] LABCLIA [id number] [place] [address] Neutrophils/100 WBC (Bld) 78.1 % Normal [facility] Comment on above: Order Comment: Speci men Type: BLOOD SPECIMENOrdering Facility: [facility] Address: [address] [place] [address] Performed By: #### 5 7021-8 ####[facility] LABCLIA [id number] [place] [address] Nucleated RBC (Bld) [#/Vol] 10*3/uL Normal <0.01 [facility] Comment on above: Order Comment: Speci men Type: BLOOD SPECIMENOrdering Facility: [facility] Address: [address] [place] [address] Performed By: #### 5 7021-8 ####[facility] LABIA [id number] [place] [address] Nucleated RBC/100 WBC (Bld) [Ratio] 0.0 /100 WBC Normal [facility] Comment on above: Order Comment: Speci men Type: BLOOD SPECIMENOrdering Facility: [facility] Address: [address] [place] [address] Performed By: #### 5 7021-8 ####[facility] LABCLIA [id number] [place] [address] Platelet mean volume (Bld) [Entitic vol] 9.1 fL Normal 9.0-12.7 [facility] Comment on above: Order Comment: Speci men Type: BLOOD SPECIMENOrdering Facility: [facility] Address: [address] [place] [address] Performed By: #### 5 7021-8 ####[facility] LABIA [id number] [place] [address] Platelets (Bld) [#/Vol] 215 10*3/uL Normal 150-400 [facility] Comment on above: Order Comment: Speci men Type: BLOOD SPECIMENOrdering Facility: [facility] Address: [address] [place] [address] Performed By: #### 5 7021-8 ####[facility] LABIA [id number] [place] [address] RBC (Bld) [#/Vol] 4.85 10*6/uL Normal 4.20-6.00 [facility] Comment on above: Order Comment: Speci men Type: BLOOD SPECIMENOrdering Facility: [facility] Address: [address] [place] [address] Performed By: #### 5 7021-8 ####[facility] LABIA [id number] [place] [address] WBC (Bld) [#/Vol] 8.01 10*3/uL Normal 3.70-11.00 [facility] Comment on above: Order Comment: Speci men Type: BLOOD SPECIMENOrdering Facility: [facility] Address: [address] [place] [address] Performed By: #### 5 7021-8 ####[facility] LABIA [id number] [place] [address] CNCNPATEDon 12-31-2022 CNCNPATED Normal [facility] Comprehensive metabolic 2000 panelon 12-31-2022 Albumin [Mass/Vol] 4.4 g/dL Normal 3.9-4.9 [facility] Comment on above: Order Comment: Speci men Type: BLOOD SPECIMENOrdering Facility: [facility] Address: [address] [place] [address] Performed By: #### 2 4323-8 ####[facility] LABIA [id number] [place] [address] ALP [Catalytic activity/Vol] 76 U/L Normal 38-113 [facility] Comment on above: Order Comment: Speci men Type: BLOOD SPECIMENOrdering Facility: [facility] Address: [address] [place] [address] Performed By: #### 2 4323-8 ####[facility] LABCLIA [id number] [place] [address] ALT [Catalytic activity/Vol] 13 U/L Normal 10-54 [facility] Comment on above: Order Comment: Speci men Type: BLOOD SPECIMENOrdering Facility: [facility] Address: [address] [place] [address] Performed By: #### 2 4323-8 ####[facility] LABCLIA [id number] [place] [address] Anion gap [Moles/Vol] 11 mmol/L Normal 9-18 [facility] Comment on above: Order Comment: Speci men Type: BLOOD SPECIMENOrdering Facility: [facility] Address: [address] [place] [address] Performed By: #### 2 4323-8 ####[facility] LABCLIA [id number] [place] [address] AST [Catalytic activity/Vol] 22 U/L Normal 14-40 [facility] Comment on above: Order Comment: Speci men Type: BLOOD SPECIMENOrdering Facility: [facility] Address: [address] [place] [address] Performed By: #### 2 4323-8 ####[facility] LABCLIA [id number] [place] [address] Bilirubin [Mass/Vol] 0.4 mg/dL Normal 0.2-1.[address] [facility] Comment on above: Order Comment: Speci men Type: BLOOD SPECIMENOrdering Facility: [facility] Address: [address] [place] [address] Performed By: #### 2 4323-8 ####[facility] LABCLIA [id number] [place] [address] Calcium [Mass/Vol] 9.7 mg/dL Normal 8.5-10.2 [facility] Comment on above: Order Comment: Speci men Type: BLOOD SPECIMENOrdering Facility: [facility] Address: [address] [place] [address] Performed By: #### 2 4323-8 ####[facility] LABCLIA [id number] [place] [address] Chloride [Moles/Vol] 101 mmol/L Normal 97-[address] [facility] Comment on above: Order Comment: Speci men Type: BLOOD SPECIMENOrdering Facility: [facility] Address: [address] [place] [address] Performed By: #### 2 4323-8 ####[facility] LABCLIA [id number] [place] [address] CO2 [Moles/Vol] 26 mmol/L Normal 22-30 [facility] Comment on above: Order Comment: Speci men Type: BLOOD SPECIMENOrdering Facility: [facility] Address: [address] [place] [address] Performed By: #### 2 4323-8 ####[facility] LABCLIA [id number] [place] [address] Creatinine [Mass/Vol] 1.93 mg/dL High 0.73-1.22 [facility] Comment on above: Order Comment: Speci men Type: BLOOD SPECIMENOrdering Facility: [facility] Address: [address] [place] [address] Performed By: #### 2 4323-8 ####[facility] LABCLIA [id number] [place] [address] ESTIMATED GLOMERULAR FILTRATION RATE 34 mL/min/1.73m??? Low >=60 [facility] Comment on above: Order Comment: Speci men Type: BLOOD SPECIMENOrdering Facility: [facility] Address: [address] [place] [address] Result Comment: Viviana mated Glomerular Filtration Rate (eGFR) is calculated using the 2020 CKD-EPI creatinine equation. This equation utilizes serum creatinine, sex, and age as parameters. The creatinine assay has traceable calibration to isotope dilution-mass spectrometry. Refer to KDIGO guidelines for clinical interpretation. In patients with unstable renal function, e.g. those with acute kidney injury, the eGFR may not accurately reflect actual GFR. Performed By: #### 2 4323-8 ####[facility] LABCLIA [id number] [place] [address] Glucose [Mass/Vol] 116 mg/dL High 74-99 [facility] Comment on above: Order Comment: Speci men Type: BLOOD SPECIMENOrdering Facility: [facility] Address: [address] [place], [place] [id number] Result Comment: The [place] Diabetes Association (ADA) provides guidance for cutoff values for fasting glucose and random glucose. The ADA defines fasting as no caloric intake for at least 8 hours. Fasting plasma glucose results between 100 to 125 mg/dL indicate increased risk for diabetes (prediabetes).Fasting plasma glucose results greater than or equal to 126 mg/dL meet the criteria for diagnosis of diabetes. In the absence of unequivocal hyperglycemia, results should be confirmed by repeat testing. In a patient with classic symptoms of hyperglycemia or hyperglycemic crisis, random plasma glucose results greater than or equal to 200 mg/dL meet the criteria for diagnosis of diabetes.Reference: Standards of Medical Care in Diabetes 2016, [place] [employer] Association. Diabetes Care. 2016.39(Suppl 1). Performed By: #### 2 4323-8 ####[facility] LABCLIA [id number] [place] [address] Potassium [Moles/Vol] 4.2 mmol/L Normal 3.7-5.1 [facility] Comment on above: Order Comment: Speci men Type: BLOOD SPECIMENOrdering Facility: [facility] Address: [address] [place] [phone] Performed By: #### 2 4323-8 ####[facility] LABCLIA [id number] [place] [address] Protein [Mass/Vol] 6.6 g/dL Normal 6.3-8.0 [facility] Comment on above: Order Comment: Speci men Type: BLOOD SPECIMENOrdering Facility: [facility] Address: [address] [address] Performed By: #### 2 4323-8 ####[facility] LABCLIA [id number] [place] [address] Sodium [Moles/Vol] 138 mmol/L Normal 136-144 [facility] Comment on above: Order Comment: Speci men Type: BLOOD SPECIMENOrdering Facility: [facility] Address: [address] [address] Performed By: #### 2 4323-8 ####[facility] LABCLIA [id number] [place] [address] Urea nitrogen [Mass/Vol] 37 mg/dL High 9-24 [facility] Comment on above: Order Comment: Speci men Type: BLOOD SPECIMENOrdering Facility: [facility] Address: [address] [address] Performed By: #### 2 4323-8 ####[facility] LABCLIA [id number] [place] [address] Beverly Valdes-Ricaon [birth year] 23 Cortisol [Mass/Vol] 6.4 ug/dL Normal 4.8-19.5 [facility] Comment on above: Order Comment: Speci men Type: BLOOD SPECIMENOrdering Facility: [facility] Address: [address] [place] [address] Result Comment: Prov ided reference range is from 6-10 AM sample collection time.Cortisol Reference Range: 6-10 AM = 4.8-19.5 ug/dL, 4-8 PM = 2.5-11.9 ug/dL Performed By: #### 3 016-3, 2143-6 ####[facility] LABCLIA [id number] [facility] [id number] [address] [place] HbA1c (Bld)on 12-31-2022 Average glucose Estimated from glycated hemoglobin (Bld) [Mass/Vol] 105 mg/dL Normal [facility] Comment on above: Order Comment: Vero barton Type: BLOOD SPECIMENOrdering Facility: [facility] Address: [address] [place] [address] Result Comment: eAG: (Estimated average glucose) is a calculated value from HgbA1c and is patient financial representative of the average blood glucose level in the last 2-3 month period. Performed By: #### 5 5454-3 ####[facility] LABIA [id number] [address] [facility] HbA1c (Bld) [Mass fraction] 5.3 % Normal 4.3-5.6 [facility] Comment on above: Order Comment: Vero oralia Type: BLOOD SPECIMENOrdering Facility: [facility] Address: [address] [place] [address] Result Comment: [place] Diabetes Association guidelines indicate that patients with HgbA1c in the range 5.7-6.4% are at increased risk for development of diabetes, and intervention by lifestyle modification may be beneficial. HgbA1c greater or equal to 6.5% is considered diagnostic of diabetes. Performed By: #### 5 5454-3 ####[facility] LABIA [id number] [address] [place] TSH SerPl-aCncon 12-31-2022 TSH Qn 3.730 m[IU]/L Normal 0.270-4.200 [facility] Comment on above: Order Comment: Virginiaronnie barton Type: BLOOD SPECIMENOrdering Facility: [facility] Address: [address] [place] [address] Performed By: #### 3 016-3, 2143-6 ####[facility] LABIA [id number] [address] [place] Consent for Procedure/Surger yon 12-20-2022 Consent for Procedure/Surgery [id number]# 1.00CD:127 Normal [facility] CNPNon 03-08-2023 CNPN Normal [facility] Urology Office/Clinic Noteon 12-18-2022 Urology Office/Clinic Note HPI Staff Cystoscopy with right stent removal. History of Present Illness Tests reviewed: none. I have reviewed the previous health record information and history for this patient from Dr. Rodriguez. I have reviewed and verified the staff HPI to be accurate for this encounter. There have been no associated fever, chills, flank pain, or blood in the urine. Denies any urinary infections since last encounter. Review of Systems ROS - Provider Constitutional: denies weight loss, denies hot flashes. Eyes: denies eye problems. Gastrointestinal: denies nausea, denies vomiting. Cardiovascular: denies chest pain or angina. Integumentary: no dryness Musculoskeletal: denies musculoskeletal symptoms. ENMT: denies otolaryngeal symptoms. Respiratory: no shortness of breath. Heme/Lymph: denies easy bleeding tendency, denies easy bruising tendency. Psychiatric: no confusion, no anxiety. Genitourinary: See HPI. Physical Exam General Appearance: alert, no distress, well nourished, well developed male. Genitourinary: normal scrotum, normal testes, normal urethra, normal epididymis, normal vas deferens/spermatic cord. Flank Pain: none. Bladder: nonpalpable. Procedure Operative Information Anesthesia Type: Local Procedure: Local Cystoscopy with Stent Removal Complications: None Surgical risks, benefits, details of the procedure have been explained to the patient. Full informed consent has been obtained. Intraoperative Information Prepped: Patient is placed in supine position. The patient was prepped with the Betadine solution. Anesthesia: 2% Xylocaine Jelly per urethra. Procedure: Cystoscopy and right stent removal. The flexible Cystoscope was passed in retrograde fashion into the bladder without difficulty. The bladder was viewed in entirety and found to be without tumors or stones. Mild inflammation was seen surrounding the orifice with the stent seen protruding from it. The stent was then grasped and removed in its entirety. Specimens Removed: None Postoperative Information The patient tolerated the procedure well and was subsequently discharged home. Assessment/Plan 1. Foreign body in bladder (T19.1XXA: Foreign body in bladder, initial encounter) S/p stent placement 11/12/22. Pt had IO cysto/R stent removal without complications today. Follow up PRN. Pt understands and agrees with plan. 2. Enlarged prostate with urinary obstruction (N40.1: Benign prostatic hyperplasia with lower urinary tract symptoms) Pt taking Flomax 0.4 mg BID. 3. Hx of bladder cancer (Z85.51: Personal history of malignant neoplasm of bladder) CIS 2009. BCG in past. S/p Right RG TURBT done 11/12/22. Pathology showed Urothelial carcinoma, papillary noninvasive high-grade. 4. Cancer of kidney (C64.1: Malignant neoplasm of right kidney, except renal pelvis) Left nephroureterectomy Jun 2018 for high grade invasive CA. R renal tumor +CIS Jun 2019. mitomycin Jul 2019. Laser ablation Oct 2019. Stent placement/ RT ureteroscopy with basket extraction of renal pelvis tumor. If pt develops gross hematuria, he is to present to the [facility] not our local er's due to his advanced clinical situation. Follow-up With When Contact Information JENNIFER FOUNTAIN, Jian Lee, URL [facility] [address], [place] [address]- Additional Instructions: PRN Patient Education I, Marisabel Reeves, personally scribed for Dr. Rodriguez on 12/18/2022 12:12:00. . Documentation recorded by the scribe, Marisabel Reeves, accurately reflects the services(s) I performed and decisions made by me. Authenticated by Dr. Rodriguez on 12/18/2022 12:13:46. Problem List/Past Medical History Ongoing Anticoagulated Bladder cancer Cancer of kidney Chronic renal disease Chronic renal failure Enlarged prostate with urinary obstruction Foreign body in bladder Gross hematuria History of cancer of ureter History of kidney stones Hx of bladder cancer Hypertension Microscopic hematuria Historical No qualifying data Procedure/Surgical History Cystoscopy (12/18/2022), Cystoscopic removal of ureteric stent (07/23/2019), Renal biopsy (07/02/2019), Instillation of mitomycin C into bladder (03/05/2019), TURBT - Transurethral resection of bladder tumor (02/05/2019), Nephroureterectomy (07/03/2018), Biopsy of bladder (05/15/2018), Pyeloscopy (05/10/2016), Renal biopsy (01/10/2012), Instillation of BCG into the bladder (09/18/2010), Stent removal (08/30/2010), Cystoscopy and transurethral resection of bladder tumor (08/10/2010), Cystoscopy (07/15/2010), Carpal tunnel release, Fusion of lumbar spine, Hernia repair, TURP - Transurethral resection of prostate, UD - Urethral dilatation. Medications amlodipine, 10 mg, Oral, Daily aspirin 81 mg Oral EC Tab, Oral, Daily atorvastatin, 10 mg, Oral, Daily balsalazide, 750 mg, Oral, TID Centrum Silver, Oral, Daily furosemide 20 mg Tab, 20 mg= 1 tab(s), O (more content not included)... Normal [facility] Comment on above: Result Comment: Elec tronically Signed By: Jian RODRIGUEZ MD R\.br\Date and Time Signed: 12/18/22 12:13 EST\.br\Electronically Co-Signed By: Marisabel Reeves\.br\Date and Time Co-Signed: 12/18/22 12:12 EST CNPNon 12-17-2022 CNPN Normal [facility] CBC AUTO DIFFon 12-08-2022 BASO # 0.1 103/ul Normal 0.0-0.1 [facility] Comment on above: Performed By: #### C K, HSTROPN, CMP, BNP #### [facility] [address] [place] [address] Dr. Tan Oliveros Basophils/100 WBC (Bld) 0.9 % Normal 0.2-2.0 [facility] Comment on above: Performed By: #### C K, HSTROPN, CMP, BNP #### [facility] [address] [address] [address] Tan Oliveros EO # 0.2 103/ul Normal 0.0-0.7 [facility] Comment on above: Performed By: #### C K, HSTROPN, CMP, BNP #### [facility] [address] [place] [address] Dr. Tan Oliveros Eosinophils/100 WBC (Bld) 3.7 % Normal 0.9-7.0 [facility] Comment on above: Performed By: #### C K, HSTROPN, CMP, BNP #### [facility] [address] [place] [address] Dr. Tan Oliveros Erythrocyte distribution width (RBC) [Ratio] 17.1 % Critically high 11.0-15.0 [facility] Comment on above: Performed By: #### C K, HSTROPN, CMP, BNP #### [facility] [address] [place] [address] Dr. Tan Oliveros Hematocrit (Bld) [Volume fraction] 38.5 % Critically low 42.0-54.0 [facility] Comment on above: Performed By: #### C K, HSTROPN, CMP, BNP #### [facility] [address] [place] [address] Dr. Tan Oliveros Hemoglobin (Bld) [Mass/Vol] 12.7 g/dL Critically low 14.0-18.0 [facility] Comment on above: Performed By: #### C K, HSTROPN, CMP, BNP #### [facility] [address] [place] [address] Dr. Tan Oliveros IG # 0.02 10e3/ul Normal 0.00-0.03 [facility] Comment on above: Performed By: #### C K, HSTROPN, CMP, BNP #### [facility] [address] [place] [address] Dr. Tan Oliveros IG % 0.4 % Normal 0.0-0.5 [facility] Comment on above: Performed By: #### C K, HSTROPN, CMP, BNP #### [facility] [address] [place] [address] Dr. Tan Oliveros LYMPH # 0.7 103/ul Critically low 1.2-3.8 [facility] Comment on above: Performed By: #### C K, HSTROPN, CMP, BNP #### [facility] [address] [place] [address] Dr. Tan Oliveros Lymphocytes/100 WBC (Bld) 12.3 % Critically low 20.5-60.0 [facility] Comment on above: Performed By: #### C K, HSTROPN, CMP, BNP #### [facility] [address] [place] [address] Dr. Tan Oliveros MANUAL DIFF REQ NO Normal [facility] Comment on above: Performed By: #### C K, HSTROPN, CMP, BNP #### [facility] [address] [place] [address] Dr. Tan Oliveros MCH (RBC) [Entitic mass] 26.1 pg Normal 25.9-34.0 [facility] Comment on above: Performed By: #### C K, HSTROPN, CMP, BNP #### [facility] [address] [place] [address] Dr. Tan Oliveros MCHC (RBC) [Mass/Vol] 33.0 g/dL Normal 29.9-35.2 [facility] Comment on above: Performed By: #### C K, HSTROPN, CMP, BNP #### [facility] [address] [place] [address] Dr. Tan Oliveros MCV (RBC) [Entitic vol] 79.2 fL Critically low 80.0-94.0 [facility] Comment on above: Performed By: #### C K, HSTROPN, CMP, BNP #### [facility] [address] [place] [address] Dr. Tan Oliveros MONO # 0.4 103/ul Normal 0.3-0.8 [facility] Comment on above: Performed By: #### C K, HSTROPN, CMP, BNP #### [facility] [address] [place] [address] Dr. Tan Oliveros Monocytes/100 WBC (Bld) 6.5 % Normal 1.7-12.0 [facility] Comment on above: Performed By: #### C K, HSTROPN, CMP, BNP #### [facility] [address] [place] [address] Dr. Tan Oliveros NEUT # 4.3 103/ul Normal 1.4-6.5 [facility] Comment on above: Performed By: #### C K, HSTROPN, CMP, BNP #### [facility] [address] [place] [address] Dr. Tan Oliveros Neutrophils/100 WBC (Bld) 76.2 % Critically high 43.0-75.0 [facility] Comment on above: Performed By: #### C K, HSTROPN, CMP, BNP #### [facility] [address] [place] [address] Dr. Tan Oliveros Platelet mean volume (Bld) [Entitic vol] 9.7 fL Normal 9.5-13.5 [facility] Comment on above: Performed By: #### C K, HSTROPN, CMP, BNP #### [facility] [address] [place] [address] Dr. Tan Oliveros PLT 199 103/ul Normal 150-450 [facility] Comment on above: Performed By: #### C K, HSTROPN, CMP, BNP #### [facility] [address] [place] [address] Dr. Tan Oliveros RBC 4.86 106/ul Normal 4.70-6.10 [facility] Comment on above: Performed By: #### C K, HSTROPN, CMP, BNP #### [facility] [address] [place] [address] Dr. Tan Oliveros WBC 5.7 103/ul Normal 4.0-11.0 [facility] Comment on above: Performed By: #### C K, HSTROPN, CMP, BNP #### [facility] [address] [place] [address] Dr. Tan Oliveros CULTURE URINEon 12-08-2022 CULTURE URINE Culture Observations : NO GROWTH. Normal [facility] Comment on above: Performed By: #### C K, HSTROPN, CMP, BNP #### [facility] [address] [place] [address] Dr. Tan Oliveros ER URINE PROFILEon 3 Bilirubin Ql (U) Negative Normal NEGATIVE [facility] Comment on above: Performed By: #### C K, HSTROPN, CMP, BNP #### [facility] [address] [place] [address] Dr. Tan Oliveros Clarity (U) CLEAR Normal CLEAR [facility] Comment on above: Performed By: #### C K, HSTROPN, CMP, BNP #### [facility] [address] [address] [address] Tan Oliveros Color (U) LT. YELLOW Normal YELLOW [facility] Comment on above: Performed By: #### C K, HSTROPN, CMP, BNP #### [facility] [address] [address] [address] Tan UPTONAHMarisabel A micrscopic examination will be performed if indicated. Normal [facility] Comment on above: Performed By: #### C K, HSTROPN, CMP, BNP #### [facility] [address] [address] [address] Tan Oliveros Glucose Ql (U) Negative Normal NEGATIVE [place] Comment on above: Performed By: #### C K, HSTROPN, CMP, BNP #### [facility] [address] [address] [address] Tan Oliveros Hemoglobin Ql (U) LARGE Abnormal NEGATIVE [facility] Comment on above: Performed By: #### C K, HSTROPN, CMP, BNP #### [facility] [address] [address] [address] Tan Oliveros Ketones Ql (U) Negative Normal NEGATIVE [facility] Comment on above: Performed By: #### C K, HSTROPN, CMP, BNP #### [facility] [address] [address] [address] Tan Oliveros LEUKOCYTES SMALL Abnormal NEGATIVE [facility] Comment on above: Performed By: #### C K, HSTROPN, CMP, BNP #### [facility] [address] [address] [address] Tan Oliveros Nitrite Ql (U) Negative Normal NEGATIVE [facility] Comment on above: Performed By: #### C K, HSTROPN, CMP, BNP #### [facility] [address] [address] [address] Tan Oliveros pH (U) 6.0 [pH] Normal 5-9 [facility] Comment on above: Performed By: #### C K, HSTROPN, CMP, BNP #### [facility] [address] [place] [address] Dr. Tan Oliveros SPEC GRAVITY 1.010 Normal 1.005-<=1.02 5 [facility] Comment on above: Performed By: #### C K, HSTROPN, CMP, BNP #### [facility] Laboratory [address] [address] [address] Tan Oliveros UA PROTEIN Negative Normal NEGATIVE/ TRACE [facility] Comment on above: Performed By: #### C K, HSTROPN, CMP, BNP #### [facility] [address] [place] [address] Dr. Tan Oliveros UR MICRO IND INDICATED Normal [facility] Comment on above: Performed By: #### C K, HSTROPN, CMP, BNP #### [facility] [address] [place] [address] Dr. Tan Oliveros Urobilinogen Qn (U) 0.2 {Maged'U}/dL Normal 0.2 - 1. 0 [facility] Comment on above: Performed By: #### C K, HSTROPN, CMP, BNP #### [facility] [address] [place] [address] Dr. Tan Oliveros POINT OF CARE GLUCOSEon 11-15 Glucose [Mass/Vol] 114 mg/dL Critically high 74-106 [facility] Comment on above: Performed By: #### C K, HSTROPN, CMP, BNP #### [facility] [address] [place] [address] Dr. Tan Oliveros PROF CHEM 8 (BAS METB)on Anion gap [Moles/Vol] 13.2 mmol/L Normal [facility] Comment on above: Performed By: #### H STROPN, BMP #### [facility] [address] [place] [address] Dr. Tan Oliveros Calcium [Mass/Vol] 8.9 mg/dL Normal 8.5-10.1 [facility] Comment on above: Performed By: #### H STROPN, BMP #### [facility] [address] [address] [address] Tan Oliveros Chloride [Moles/Vol] 104 mmol/L Normal 98-107 [facility] Comment on above: Performed By: #### H STROPN, BMP #### [facility] [address] [place] [address] Dr. Tan Oliveros CO2 [Moles/Vol] 27.1 mmol/L Normal 21.0-32.0 [facility] Comment on above: Performed By: #### H STROPN, BMP #### [facility] [address] [place] [address] Dr. Tan Oliveros Creatinine [Mass/Vol] 2.11 mg/dL Critically high 0.70-1.30 [facility] Comment on above: Performed By: #### H STROPN, BMP #### [facility] [address] [place] [address] Dr. Tan Oliveros EGFR-AF YEMENI 37 mL/min/1.73m2 Critically low >=60 [facility] Comment on above: Performed By: #### H STROPN, BMP #### [facility] [address] [place] [address] Dr. Tan Oliveros EGFR-NON AF YEMENI 30 mL/min/1.73m2 Critically low >=60 [facility] Comment on above: Performed By: #### H STROPN, BMP #### [facility] [address] [place] [address] Dr. Tan Oliveros Glucose [Mass/Vol] 107 mg/dL Critically high 74-106 [facility] Comment on above: Performed By: #### H STROPN, BMP #### [facility] [address] [place] [address] Dr. Tan Oliveros Potassium [Moles/Vol] 4.3 mmol/L Normal 3.5-5.1 [facility] Comment on above: Performed By: #### H STROPN, BMP #### [facility] [address] [place] [address] Dr. Tan Oliveros Sodium [Moles/Vol] 140 mmol/L Normal 136-145 [facility] Comment on above: Performed By: #### H FIONA, BMP #### [facility] [address] [place] [address] Dr. Tan Oliveros Urea nitrogen [Mass/Vol] 32.0 mg/dL Critically high 7.0-18.0 [facility] Comment on above: Performed By: #### H FIONA, BMP #### [facility] [address] [place] [address] Dr. Tan Oliveros Urea nitrogen/Creatinine [Mass ratio] 15.2 mg/mg Normal [facility] Comment on above: Performed By: #### H FIONA, BMP #### [facility] [address] [place] [address] Dr. Tan Oliveros TROPONIN, HIGH SENSITIVITYon 12-08-2022 HSTROP 54.6 pg/mL Normal 4.0-76.1 [facility] Comment on above: Result Comment: CUT- OFF POINTS HAVE BEEN ESTABLISHED BASED ON THE FOURTH UNIVERSAL DEFINITIONS OF MYOCARDIAL INFARCTION. THE UPPER REFERENCE LIMIT (URL) OF TROPONIN, DEFINED THE 99TH PERCENTILE OF cTnI DISTRIBUTION IN A REFERENCE POPULATION, HAS BEEN CONFIRMED THE DECISION THRESHOLD FOR SD DIAGNOSIS. Performed By: #### Yuan JAIMES, BMP #### [facility] [address] [place] [address] Dr. Tan Oliveros URINE MICROSCOPIC ONLYon BACTERIA TRACE Abnormal NONE SEEN [facility] Comment on above: Performed By: #### C K, HSTROPN, CMP, BNP #### [facility] [address] [place] [address] Dr. Tan Oliveros Bacteria identified Cx Nom (U) INDICATED Normal [facility] Comment on above: Performed By: #### C K, HSTROPN, CMP, BNP #### [facility] [address] [place] [address] Dr. Tan Oliveros CAST NONE SEEN Normal NONE SEEN [facility] Comment on above: Performed By: #### C K, HSTROPN, CMP, BNP #### [facility] [address] [place] [address] Dr. Tan Oliveros Crystals LM Nom (Urine sed) NONE SEEN Normal NONE SEEN [facility] Comment on above: Performed By: #### C K, HSTROPN, CMP, BNP #### [facility] [address] [address] [address] Tan Oliveros Epithelial cells LM Ql (Urine sed) RARE Normal NONE SEEN /RARE [facility] Comment on above: Performed By: #### C K, HSTROPN, CMP, BNP #### [facility] [address] [address] [address] Tan Oliveros MUCOUS NONE SEEN Normal NONE SEEN [facility] Comment on above: Performed By: #### C K, HSTROPN, CMP, BNP #### [facility] [address] [address] [address] Tan Oliveros RBC 20-50 Abnormal 0-2 [facility] Comment on above: Performed By: #### C K, HSTROPN, CMP, BNP #### [facility] [address] [address] [address] Tan Oliveros WBC 2-5 Abnormal NONE SEEN [facility] Comment on above: Performed By: #### C K, HSTROPN, CMP, BNP #### [facility] [address] [place] [address] Dr. Tan Oliveros XR CHEST 1 Von 12-08-2022 XR CHEST 1 V EXAM: XR CHEST 1 V HISTORY: SHORTNESS OF BREATH COMPARISON: 02/26/2022 TECHNIQUE: Single view of the FINDINGS: Heart size normal. No focal consolidation, pleural effusion, pulmonary congestion or pneumothorax. IMPRESSION: No acute findings. Electronically authenticated by: AUGUSTINA JAMES Date: 2022-12-08 12:54 Normal [facility] Screenson 12-06-2022 Screens [id number]. 00CD:127 Normal [facility] Ambulatory Visit Summaryon 0 12-05-2022 Ambulatory Visit Summary DUC AUSTINQamar Watson :1940 Visit Date:12/05/2022 Ambulatory Visit Instructions Your Diagnosis Enlarged prostate with urinary obstruction Bladder cancer Cancer of kidney Gross hematuria Other obstructive and reflux uropathy Tests Performed Urnls Dip Stick Auto w/o Microscopy POC 27180 Your Care Team Attending Physician - Jian RODRIGUEZ MD Primary Care Physician - Yoan Sneed MD This Is Your Medications List Contact prescribing physician if questions or concerns amlodipine atorvastatin balsalazide cranberry (Cranberry) furosemide (furosemide 20 mg Tab) glucosamine hydrALAZINE (hydrALAZINE 10 mg Tab) isosorbide dinitrate (isosorbide dinitrate 10 mg Tab) losartan metoprolol (metoprolol 25 mg ER Tab) multivitamin with minerals (Centrum Silver) omeprazole tamsulosin (tamsulosin 0.4 mg Cap) Procedures Performed Cystoscopic removal of ureteric stent (07/23/2019), Renal biopsy (07/02/2019), Instillation of mitomycin C into bladder (03/05/2019), TURBT - Transurethral resection of bladder tumor (02/05/2019), Nephroureterectomy (07/03/2018), Biopsy of bladder (05/15/2018), Pyeloscopy (05/10/2016), Renal biopsy (01/10/2012), Instillation of BCG into the bladder (09/18/2010), Stent removal (08/30/2010), Cystoscopy and transurethral resection of bladder tumor (08/10/2010), Cystoscopy (07/15/2010), Carpal tunnel release, Fusion of lumbar spine, Hernia repair, TURP - Transurethral resection of prostate, UD - Urethral dilatation. Discharge Vitals Heart Rate (Peripheral) 59 Blood Pressure 146/70 Height 167 cm Height 66 in Weight 84.0 kg Weight 184.8 lb BMI 30.12 What to do next You Need to Schedule the Following Appointments Follow Up with JENNIFER FOUNTAIN, Jian Lee, URL When: Where: [facility] [address], [place] [address]- Medications What How Much When Instructions Unchanged amlodipine 10 Milligram By Mouth Every day Contact prescribing physician if questions or concerns Unchanged atorvastatin 10 Milligram By Mouth Every day Contact prescribing physician if questions or concerns Unchanged balsalazide 750 Milligram By Mouth 3 times a day Contact prescribing physician if questions or concerns Unchanged cranberry (Cranberry) Contact prescribing physician if questions or concerns Unchanged furosemide (furosemide 20 mg Tab) 1 Tablets By Mouth Every day Contact prescribing physician if questions or concerns Unchanged glucosamine 1,500 Milligram By Mouth Every day Contact prescribing physician if questions or concerns Unchanged hydrALAZINE (hydrALAZINE 10 mg Tab) 1 Tablets By Mouth 4 times a day Contact prescribing physician if questions or concerns Unchanged isosorbide dinitrate (isosorbide dinitrate 10 mg Tab) 1 Tablets By Mouth 2 times a day Contact prescribing physician if questions or concerns Unchanged losartan 50 Milligram By Mouth Every day Contact prescribing physician if questions or concerns Unchanged metoprolol (metoprolol 25 mg ER Tab) By Mouth Every day Contact prescribing physician if questions or concerns Unchanged multivitamin with minerals (Centrum Silver) By Mouth Every day Contact prescribing physician if questions or concerns Unchanged omeprazole 20 Milligram By Mouth Every day Contact prescribing physician if questions or concerns Unchanged tamsulosin (tamsulosin 0.4 mg Cap) By Mouth Every day Contact prescribing physician if questions or concerns Test Results Urnls Dip Stick Auto w/o Microscopy POC 60502 (12/05/2022) Bilirubin Urine Dipstick - Negative Blood Urine Dipstick - 3+ Large Glucose Urine Dipstick - 1+ 250 mg/dl Ketones Urine Dipstick - Negative Leukocytes Urine Dipstick - 1+ Small Nitrite Urine Dipstick - Negative Protein Urine Dipstick - Trace Specific [place] Urine Dipstick - 1.020 Urine Appearance Urine Dipstick - Clear Urine Color Urine Dipstick - Yellow Urobilinogen Urine Dipstick - Normal 0.2-1 EU/dl pH Urine Dipstick - 6 Allergies Tape (Blister of skin without infection) No Known Medication Allergies Problems Ongoing - Any problem that you are currently receiving treatment for. Anticoagulated Bladder cancer Cancer of kidney Chronic renal disease Chronic renal failure Enlarged prostate with urinary obstruction Gross hematuria History of cancer of ureter History of kidney stones Hx of bladder cancer Hypertension Microscopic hematuria Education Materials Bladder Cancer Bladder cancer is an abnormal growth of tissue in the bladder. The bladder is the balloon-like sac in the pelvis. It collects and stores urine that comes from the kidneys through the ureters. The bladder wall is made of layers. If cancer spreads into these layers and through the wall of the bladder, it becomes more difficult to treat. What are the causes? The cause of this condition is not known. What increases the risk? The following factors may make (more content not included)... Normal [facility] Patient Educationon 12-05-19 Patient Education Oncology Bladder Cancer Bladder cancer is an abnormal growth of tissue in the bladder. The bladder is the balloon-like sac in the pelvis. It collects and stores urine that comes from the kidneys through the ureters. The bladder wall is made of layers. If cancer spreads into these layers and through the wall of the bladder, it becomes more difficult to treat. What are the causes? The cause of this condition is not known. What increases the risk? The following factors may make you more likely to develop this condition: ? Smoking. ? Workplace risks (occupational exposures), such as rubber, leather, textile, dyes, chemicals, and paint. ? Being white. ? Your age. Most people with bladder cancer are over the age of 55. ? Being male. ? Having chronic bladder inflammation. ? Having a personal history of bladder cancer. ? Having a family history of bladder cancer (heredity). ? Having had chemotherapy or radiation therapy to the pelvis. ? Having been exposed to arsenic. What are the signs or symptoms? Initial symptoms of this condition include: ? Blood in the urine. ? Painful urination. ? Frequent bladder or urine infections. ? Increase in urgency and frequency of urination. Advanced symptoms of this condition include: ? Not being able to urinate. ? Low back pain on one side. ? Loss of appetite. ? Weight loss. ? Fatigue. ? Swelling in the feet. ? Bone pain. How is this diagnosed? This condition is diagnosed based on your medical history, a physical exam, urine tests, lab tests, imaging tests, and your symptoms. You may also have other tests or procedures done, such as: ? A narrow tube being inserted into your bladder through your urethra (cystoscopy) in order to view the lining of your bladder for tumors. ? A biopsy to sample the tumor to see if cancer is present. If cancer is present, it will then be staged to determine its severity and extent. Staging is an assessment of: ? The size of the tumor. ? Whether the cancer has spread. ? Where the cancer has spread. It is important to know how deeply into the bladder wall cancer has grown and whether cancer has spread to any other parts of your body. Staging may require blood tests or imaging tests, such as a CT scan, MRI, bone scan, or chest X-ray. How is this treated? Based on the stage of cancer, one treatment or a combination of treatments may be recommended. The most common forms of treatment are: ? Surgery to remove the cancer. Procedures that may be done include transurethral resection and cystectomy. ? Radiation therapy. This is high-energy X-rays or other particles. This is often used in combination with chemotherapy. ? Chemotherapy. During this treatment, medicines are used to kill cancer cells. ? Immunotherapy. This uses medicines to help your own immune system destroy cancer cells. Follow these instructions at home: ? Take utyp-qyr-cfbfuqn and prescription medicines only as told by your health care provider. ? Maintain a healthy diet. Some of your treatments might affect your appetite. ? Consider joining a support group. This may help you learn to cope with the stress of having bladder cancer. ? Tell your cancer care team if you develop side effects. They may be able to recommend ways to relieve them. ? Keep all follow-up visits as told by your health care provider. This is important. Where to find more information ? [place] [employer]: www.cancer.org ? National Cancer [place] (NCI): www.cancer.gov Contact a health care provider if: ? You have symptoms of a urinary tract infection. These include: ? Fever. ? Chills. ? Weakness. ? Muscle aches. ? Abdominal pain. ? Frequent and intense urge to urinate. ? Burning feeling in the bladder or urethra during urination. Get help right away if: ? There is blood in your urine. ? You cannot urinate. ? You have severe pain or other symptoms that do not go away. Summary ? Bladder cancer is an abnormal growth of tissue in the bladder. ? This condition is diagnosed based on your medical history, a physical exam, urine tests, lab tests, imaging tests, and your symptoms. ? Based on the stage of cancer, surgery, chemotherapy, or a combination of treatments may be recommended. ? Consider joining a support group. This may help you learn to cope with the stress of having bladder cancer. This information is not intended to replace advice given to you by your health care provider. Make sure you discuss any questions you have with your health care provider. Document Released: 10/02/2004 Document Revised: 09/12/2018 Document Reviewed: 09/03/2017 [employer] Patient Education ? 2020 [employer]. [facility] Urology Office/Clinic Noteon 12-05-2022 Urology Office/Clinic Note Chief Complaint Follow up to stent placement HPI Staff Pt is here for follow up to stent placement/ RT ureteroscopy with basket extraction of renal pelvis tumor, right RG TURBT done 11/12/22. Pathology showed Urothelial carcinoma, papillary noninvasive high-grade. Previous DX: cancer of kidney, chronic renal disease, chronic renal failure, enlarged prostate with urinary obstruction, history of cancer of ureter, history of kidney stones, history of bladder cancer, microscopic hematuria. S/P Cysto/stent removal done 07/23/19, renal biopsy done 07/02/19. IPSS SCORE is 12. Current PSA 2.19 done 09/26/22. Dysuria: denies pain and burning Incomplete bladder emptying: denies Hematuria: last blood a week ago Frequency: 2x in a hour Urgency: sometimes Nocturia: once a night Stream: denies hesitancy, medium stream Leaking: denies Post void dripping: once in a while Wearing pads/ Depends: denies Urge incontinence: a couple times Stress incontinence: denies Incontinence without Sensory Awareness: denies Abdominal pain: denies Flank pain: denies History of Present Illness Tests Reviewed: Reviewed UA. I have reviewed and verified the staff HPI to be accurate for this encounter. I have reviewed the previous health record information and history for this patient from [place]. [place] There have been no associated fever, chills, flank pain, or blood in the urine. Denies any urinary infections since last encounter. Review of Systems PHQ Score Initial Depression Screen Score: 0 ROS - Provider Constitutional: denies weight loss, denies hot flashes. Eyes: denies eye problems. Gastrointestinal: denies nausea, denies vomiting. Cardiovascular: denies chest pain or angina. Integumentary: no dryness Musculoskeletal: denies musculoskeletal symptoms. ENMT: denies otolaryngeal symptoms. Respiratory: no shortness of breath. Heme/Lymph: denies easy bleeding tendency, denies easy bruising tendency. Psychiatric: no confusion, no anxiety. Genitourinary: denies dysuria, denies hematuria, denies discharge, denies urinary frequency, denies urinary hesitancy, denies nocturia, denies incontinence, denies genital sores, denies decreased libido, and denies erectile dysfunction. Physical Exam Vitals & Measurements HR: 59(Peripheral) BP: 146/70 HT: 66 in HT: 167 cm WT: 84.0 kg WT: 184.8 lb BMI: 30.12 General Appearance: alert, no distress, well nourished, well developed male. Genitourinary: normal scrotum, normal testes, normal urethra, normal epididymis, normal vas deferens/spermatic cord. Flank Pain: none. Bladder: nonpalpable. Assessment/Plan 1. Enlarged prostate with urinary obstruction (N40.1: Benign prostatic hyperplasia with lower urinary tract symptoms) IPSS(12) QoL(5) continues on Flomax BID. 2. Bladder cancer (C67.9: Malignant neoplasm of bladder, unspecified) right RG TURBT done 11/12/22. Pathology showed Urothelial carcinoma, papillary noninvasive high-grade CIS 2009. BCG in past 3. Cancer of kidney (C64.1: Malignant neoplasm of right kidney, except renal pelvis) Left nephroureterectomy Jun 2018 for high grade invasive CA. R renal tumor +CIS Jun 2019. mitomycin Jul 2019. laser ablation Oct 2019. stent placement/ RT ureteroscopy with basket extraction of renal pelvis tumor PT does have cancer in his right kidney now Per oncology note pt will have to start chemotherapy explained to that there is a concern and risk for bleeding and possibly kidney failure if the stent is removed. PT will like to move forward with the removal of the stent. Will schedule Cysto with JJ Stent removal. The procedure risks, benefits, details, and treatment alternatives have been discussed. These include the need for additional procedures, bleeding, infection, injury to the ureter, moderate to severe bladder irritation from the stent (with frequent urination, urgency, urinary leakage), moderate flank discomfort, among others. Stent removal or changes may also be required in the future. Full informed consent has been obtained. Will order General anesthesia. 4. Gross hematuria (R31.0: Gross hematuria) UA today shows large blood and small EVELIA Other obstructive and reflux uropathy (N13.8: Other obstructive and reflux uropathy) Follow-up With When Contact Information JENNIFER FOUNTAIN, Jian Lee, URL [facility] [address] [place] [address]- Additional Instructions: Patient Education Bladder Cancer I, Priya Moody, personally scribed for Dr. Rodriguez on 12/05/2022 10:40:47. . Documentation recorded by the scribe, Priya Moody, accurately reflects the services(s) I performed and decisions made by me. Authenticated by Dr. Rodriguez on 12/05/2022 10:43:06. Problem List/Past Medical History Ongoing Anticoagulated Bladder cancer Cancer of kidney Chronic renal disease Chronic renal failure Enlarged prostate with urinary obstruction Gross hematuria (more content not included)... Normal [facility] Comment on above: Result Comment: Elec tronically Signed By: Jian RODRIGUEZ MD\.br\Date and Time Signed: 12/05/22 10:43 EST\.br\Electronically Co-Signed By: Priya Moody\.br\Date and Time Co-Signed: 12/05/22 10:40 EST Office Visiton 12-03-2022 Follow-up visit [id number] Juan Jose Austin 1940 M Date Provider Department Center 12/03/2022 CASEY PULIDO CARD [facility] Family History Problem Relation Age of Onset Heart failure Mother Family Status - Relation Status Age at Mother Level of Service:61244 MS OFFICE/OUTPATIENT ESTABLISHED MOD MDM 30-39 MIN Reason for Visit and Comments: Congestive Heart Failure [127] Hypertension [826740] Atrial Flutter [101] Normal [facility] REFERRAL FOR ADDITIONAL BIOM ARKER AND MOLECULAR TESTINGon 12-03-2022 REFERRAL FOR ADDITIONAL BIOMARKER AND MOLECULAR TESTING Normal [facility] Comment on above: Order Comment: Speci men Type: TISSUE SPECIMENOrdering Facility: [facility] Address: [address] [place] [id number] Result Comment: Requ est has been received for evaluation and the results will be issued separately. Performed By: #### A PMOL ####[facility] LABCLIA [id number] [place] [address] Consultation Noteon 11-27-19 Consultation Note [id number] .[id number]:127 Normal [facility] CNOVSPon 11-26-2022 CNOVSP Normal [facility] Albumin SerPl-mCncon 023 Albumin [Mass/Vol] 4.2 g/dL Normal 3.9-4.9 [facility] Comment on above: Order Comment: Speci men Type: BLOOD SPECIMENOrdering Facility: [facility] Address: [address] [place] [address] Performed By: #### 2 777-1, 48047-5, 1751-04 ####[facility] LABCLIA [id number] [place] [address] Basic metabolic 2000 panelon 11-19-2022 Anion gap [Moles/Vol] 11 mmol/L Normal 9-18 [facility] Comment on above: Order Comment: Speci men Type: BLOOD SPECIMENOrdering Facility: [facility] Address: [address] [place] [address] Performed By: #### 2 777-1, 62003-1, 1751-04 ####[facility] LABIA [id number] [place] [address] Calcium [Mass/Vol] 9.2 mg/dL Normal 8.5-10.2 [facility] Comment on above: Order Comment: Speci men Type: BLOOD SPECIMENOrdering Facility: [facility] Address: [address] [place] [address] Performed By: #### 2 777-1, 88567-2, 1751-04 ####[facility] LABCLIA [id number] [place] [address] Chloride [Moles/Vol] 102 mmol/L Normal 97-[address] [facility] Comment on above: Order Comment: Speci men Type: BLOOD SPECIMENOrdering Facility: [facility] Address: [address] [address] [place], [place] [address] Performed By: #### 2 777-1, 09487-9, 1751-04 ####[facility] LABCLIA [id number] [place] [address] CO2 [Moles/Vol] 26 mmol/L Normal 22-30 [facility] Comment on above: Order Comment: Speci men Type: BLOOD SPECIMENOrdering Facility: [facility] Address: [address] [place] [address] Performed By: #### 2 777-1, 13177-4, 1751-04 ####[facility] LABCLIA [id number] [place] [address] Creatinine [Mass/Vol] 4.74 mg/dL High 0.73-1.22 [facility] Comment on above: Order Comment: Speci men Type: BLOOD SPECIMENOrdering Facility: [facility] Address: [place] [address] Performed By: #### 2 777-1, 22890-2, 1751-04 ####[facility] LABIA [id number] [place] [address] ESTIMATED GLOMERULAR FILTRATION RATE 12 mL/min/1.73m??? Low >=60 [facility] Comment on above: Order Comment: Speci men Type: BLOOD SPECIMENOrdering Facility: [facility] Address: [place] [place] [address] Result Comment: Viviana mated Glomerular Filtration Rate (eGFR) is calculated using the 2020 CKD-EPI creatinine equation. This equation utilizes serum creatinine, sex, and age as parameters. The creatinine assay has traceable calibration to isotope dilution-mass spectrometry. Refer to KDIGO guidelines for clinical interpretation. In patients with unstable renal function, e.g. those with acute kidney injury, the eGFR may not accurately reflect actual GFR. Performed By: #### 2 777-1, 73676-1, 1751-04 ####[facility] LABIA [id number] [place] [address] Glucose [Mass/Vol] 95 mg/dL Normal 74-99 [facility] Comment on above: Order Comment: Speci men Type: BLOOD SPECIMENOrdering Facility: [facility] Address: [address] Result Comment: The [place] [employer] (ADA) provides guidance for cutoff values for fasting glucose and random glucose. The ADA defines fasting as no caloric intake for at least 8 hours. Fasting plasma glucose results between 100 to 125 mg/dL indicate increased risk for diabetes (prediabetes).Fasting plasma glucose results greater than or equal to 126 mg/dL meet the criteria for diagnosis of diabetes. In the absence of unequivocal hyperglycemia, results should be confirmed by repeat testing. In a patient with classic symptoms of hyperglycemia or hyperglycemic crisis, random plasma glucose results greater than or equal to 200 mg/dL meet the criteria for diagnosis of diabetes.Reference: Standards of Medical Care in Diabetes 2016, [place] [employer]. Diabetes Care. 2016.39(Suppl 1). Performed By: #### 2 777-1, 78409-8, 1751-04 ####[facility] LABCLIA [id number] [place] [address] Potassium [Moles/Vol] 4.7 mmol/L Normal 3.7-5.1 [facility] Comment on above: Order Comment: Speci men Type: BLOOD SPECIMENOrdering Facility: [facility] Address: [address] [id number] Performed By: #### 2 777-1, 26589-4, 1751-04 ####[facility] LABCLIA [id number] [place] [address] Sodium [Moles/Vol] 139 mmol/L Normal 136-144 [facility] Comment on above: Order Comment: Speci men Type: BLOOD SPECIMENOrdering Facility: [facility] Address: [address] [id number] Performed By: #### 2 777-1, 88567-0, 1751-04 ####[facility] LABCLIA [id number] [place] [address] Urea nitrogen [Mass/Vol] 60 mg/dL High 9-24 [facility] Comment on above: Order Comment: Speci men Type: BLOOD SPECIMENOrdering Facility: [facility] Address: [address] Performed By: #### 2 777-1, 29190-9, 1751-7 ####[facility] LABCLIA [id number] [place] [address] CBC panel Auto (Bld)on 11-19 Erythrocyte distribution width (RBC) [Ratio] 17.7 % High 11.5-15.0 [facility] Comment on above: Order Comment: Speci men Type: BLOOD SPECIMENOrdering Facility: [facility] Address: [address] [place] [address] Performed By: #### 5 8410-2 ####[facility] LABIA [id number] [place] [address] Hematocrit (Bld) [Volume fraction] 37.9 % Low 39.0-51.0 [facility] Comment on above: Order Comment: Speci men Type: BLOOD SPECIMENOrdering Facility: [facility] Address: [address] [place] [address] Performed By: #### 5 8410-2 ####[facility] LABIA [id number] [place] [address] Hemoglobin (Bld) [Mass/Vol] 12.0 g/dL Low 13.0-17.0 [facility] Comment on above: Order Comment: Speci men Type: BLOOD SPECIMENOrdering Facility: [facility] Address: [address] [place] [address] Performed By: #### 5 8410-2 ####[facility] LABCLIA [id number] [place] [address] MCH (RBC) [Entitic mass] 25.1 pg Low 26.0-34.0 [facility] Comment on above: Order Comment: Speci men Type: BLOOD SPECIMENOrdering Facility: [facility] Address: [address] [place] [address] Performed By: #### 5 8410-2 ####[facility] LABCLIA [id number] [place] [address] MCHC (RBC) [Mass/Vol] 31.7 g/dL Normal 30.5-36.0 [facility] Comment on above: Order Comment: Speci men Type: BLOOD SPECIMENOrdering Facility: [facility] Address: [address] [place] [address] Performed By: #### 5 8410-2 ####[facility] LABCLIA [id number] [place] [address] MCV (RBC) [Entitic vol] 79.3 fL Low 80.0-100.0 [facility] Comment on above: Order Comment: Speci men Type: BLOOD SPECIMENOrdering Facility: [facility] Address: [address] [place] [address] Performed By: #### 5 8410-2 ####[facility] LABIA [id number] [place] [address] Nucleated RBC (Bld) [#/Vol] 10*3/uL Normal <0.01 [facility] Comment on above: Order Comment: Speci men Type: BLOOD SPECIMENOrdering Facility: [facility] Address: [address] [place] [address] Performed By: #### 5 8410-2 ####[facility] LABIA [id number] [place] [address] Platelet mean volume (Bld) [Entitic vol] 8.9 fL Low 9.0-12.7 [facility] Comment on above: Order Comment: Speci men Type: BLOOD SPECIMENOrdering Facility: [facility] Address: [address] [place] [address] Performed By: #### 5 8410-2 ####[facility] LABIA [id number] [place] [address] Platelets (Bld) [#/Vol] 228 10*3/uL Normal 150-400 [facility] Comment on above: Order Comment: Speci men Type: BLOOD SPECIMENOrdering Facility: [facility] Address: [address] [address] Performed By: #### 5 8410-2 ####[facility] LABIA [id number] [place] [address] RBC (Bld) [#/Vol] 4.78 10*6/uL Normal 4.20-6.00 [facility] Comment on above: Order Comment: Speci men Type: BLOOD SPECIMENOrdering Facility: [facility] Address: [address] [address] Performed By: #### 5 8410-2 ####[facility] LABIA [id number] [place] [address] WBC (Bld) [#/Vol] 7.09 10*3/uL Normal 3.70-11.00 [facility] Comment on above: Order Comment: Speci men Type: BLOOD SPECIMENOrdering Facility: [facility] Address: [address] [place] [address] Performed By: #### 5 8410-2 ####[facility] LABIA [id number] [place] [address] Phosphate SerPl-mCncon 11-19 Phosphate [Mass/Vol] 3.5 mg/dL Normal 2.7-4.[address] [facility] Comment on above: Order Comment: Speci men Type: BLOOD SPECIMENOrdering Facility: [facility] Address: [address] [place] [address] Performed By: #### 2 777-1, 13834-3, 1751-7 ####[facility] LABIA [id number] [place] [address] Basic metabolic 2000 panelon 11-18-2022 Anion gap [Moles/Vol] 12 mmol/L Normal 9-18 [facility] Comment on above: Order Comment: Speci men Type: BLOOD SPECIMENOrdering Facility: [facility] Address: [address] [place] [address] Performed By: #### 2 4321-2 ####[facility] LABCLIA [id number] [place] [address] [place] Calcium [Mass/Vol] 8.1 mg/dL Low 8.5-10.2 [facility] Comment on above: Order Comment: Speci men Type: BLOOD SPECIMENOrdering Facility: [facility] Address: [address] Performed By: #### 2 4321-2 ####[facility] LABCLIA [id number] [place] [address] [place] Chloride [Moles/Vol] 102 mmol/L Normal 97-[address] [facility] Comment on above: Order Comment: Speci men Type: BLOOD SPECIMENOrdering Facility: [facility] Address: [address] [place], [place] [address] Performed By: #### 2 4321-2 ####[facility] LABCLIA [id number] [place] [address] [place] CO2 [Moles/Vol] 24 mmol/L Normal 22-30 [facility] Comment on above: Order Comment: Speci men Type: BLOOD SPECIMENOrdering Facility: [facility] Address: [address] [place], [place] [address] Performed By: #### 2 4321-2 ####[facility] LABCLIA [id number] [place] [address] [place] Creatinine [Mass/Vol] 6.19 mg/dL High 0.73-1.22 [facility] Comment on above: Order Comment: Speci men Type: BLOOD SPECIMENOrdering Facility: [facility] Address: [address] Performed By: #### 2 4321-2 ####[facility] LABCLIA [id number] [place] [address] [place] ESTIMATED GLOMERULAR FILTRATION RATE 8 mL/min/1.73m??? Low >=60 [facility] Comment on above: Order Comment: Vero barton Type: BLOOD SPECIMENOrdering Facility: [facility] Address: [address] [place] [address] Result Comment: Viviana mated Glomerular Filtration Rate (eGFR) is calculated using the 2020 CKD-EPI creatinine equation. This equation utilizes serum creatinine, sex, and age as parameters. The creatinine assay has traceable calibration to isotope dilution-mass spectrometry. Refer to KDIGO guidelines for clinical interpretation. In patients with unstable renal function, e.g. those with acute kidney injury, the eGFR may not accurately reflect actual GFR. Performed By: #### 2 4321-2 ####[facility] LABIA [id number] [place] [address] [place] Glucose [Mass/Vol] 93 mg/dL Normal 74-99 [facility] Comment on above: Order Comment: Vero barton Type: BLOOD SPECIMENOrdering Facility: [facility] Address: [address] [place] [address] Result Comment: The [place] [employer] (ADA) provides guidance for cutoff values for fasting glucose and random glucose. The ADA defines fasting as no caloric intake for at least 8 hours. Fasting plasma glucose results between 100 to 125 mg/dL indicate increased risk for diabetes (prediabetes).Fasting plasma glucose results greater than or equal to 126 mg/dL meet the criteria for diagnosis of diabetes. In the absence of unequivocal hyperglycemia, results should be confirmed by repeat testing. In a patient with classic symptoms of hyperglycemia or hyperglycemic crisis, random plasma glucose results greater than or equal to 200 mg/dL meet the criteria for diagnosis of diabetes.Reference: Standards of Medical Care in Diabetes 2016, [place] [employer]. Diabetes Care. 2016.39(Suppl 1). Performed By: #### 2 4321-2 ####[facility] LABIA [id number] [place] [address] [place] Potassium [Moles/Vol] 4.4 mmol/L Normal 3.7-5.1 [facility] Comment on above: Order Comment: Vero barton Type: BLOOD SPECIMENOrdering Facility: [facility] Address: [address] Performed By: #### 2 4321-2 ####[facility] LABCLIA [id number] [place] [address] [place] Sodium [Moles/Vol] 138 mmol/L Normal 136-144 [facility] Comment on above: Order Comment: Speci men Type: BLOOD SPECIMENOrdering Facility: [facility] Address: [address] [address] Performed By: #### 2 4321-2 ####[facility] LABCLIA [id number] [place] [address] [place] Urea nitrogen [Mass/Vol] 66 mg/dL High 9-24 [facility] Comment on above: Order Comment: Speci men Type: BLOOD SPECIMENOrdering Facility: [facility] Address: [address] Performed By: #### 2 4321-2 ####[facility] LABCLIA [id number] [place] [address] [place] CBC panel Auto (Bld)on 11-18 Erythrocyte distribution width (RBC) [Ratio] 17.5 % High 11.5-15.0 [facility] Comment on above: Order Comment: Speci men Type: BLOOD SPECIMENOrdering Facility: [facility] Address: [address] Performed By: #### 5 8410-2 ####[facility] LABCLIA [id number] [place] [address] [place] Hematocrit (Bld) [Volume fraction] 34.3 % Low 39.0-51.0 [facility] Comment on above: Order Comment: Speci men Type: BLOOD SPECIMENOrdering Facility: [facility] Address: [address] Performed By: #### 5 8410-2 ####[facility] LABIA [id number] [place] [address] [place] Hemoglobin (Bld) [Mass/Vol] 11.5 g/dL Low 13.0-17.0 [facility] Comment on above: Order Comment: Speci men Type: BLOOD SPECIMENOrdering Facility: [facility] Address: [address] [place] [address] Performed By: #### 5 8410-2 ####[facility] [id number] [place] [address] [place] MCH (RBC) [Entitic mass] 25.6 pg Low 26.0-34.0 [facility] Comment on above: Order Comment: Speci men Type: BLOOD SPECIMENOrdering Facility: [facility] Address: [address] [place] [address] Performed By: #### 5 8410-2 ####[facility] [id number] [address] [place] MCHC (RBC) [Mass/Vol] 33.5 g/dL Normal 30.5-36.0 [facility] Comment on above: Order Comment: Speci men Type: BLOOD SPECIMENOrdering Facility: [facility] Address: [address] [place] [address] Performed By: #### 5 8410-2 ####[facility] LAB[facility] [id number] [address] [place] MCV (RBC) [Entitic vol] 76.4 fL Low 80.0-100.0 [facility] Comment on above: Order Comment: Speci men Type: BLOOD SPECIMENOrdering Facility: [facility] Address: [address] [place] [address] Performed By: #### 5 8410-2 ####[facility] [id number] [place] [address] [place] Nucleated RBC (Bld) [#/Vol] 10*3/uL Normal <0.01 [facility] Comment on above: Order Comment: Speci men Type: BLOOD SPECIMENOrdering Facility: [facility] Address: [address] [place], [place] [id number] Performed By: #### 5 8410-2 ####[facility] LABCLIA [id number] [place] [address] [place] Platelet mean volume (Bld) [Entitic vol] 9.8 fL Normal 9.0-12.7 [facility] Comment on above: Order Comment: Speci men Type: BLOOD SPECIMENOrdering Facility: [facility] Address: [address] [place] [address] Performed By: #### 5 8410-2 ####[facility] LABCLIA [id number] [place] [address] [place] Platelets (Bld) [#/Vol] 190 10*3/uL Normal 150-400 [facility] Comment on above: Order Comment: Speci men Type: BLOOD SPECIMENOrdering Facility: [facility] Address: [address] [place], [place] [id number] Performed By: #### 5 8410-2 ####[facility] LABCLIA [id number] [place] [address] [place] RBC (Bld) [#/Vol] 4.49 10*6/uL Normal 4.20-6.00 [facility] Comment on above: Order Comment: Speci men Type: BLOOD SPECIMENOrdering Facility: [facility] Address: [address] [place], [place] [id number] Performed By: #### 5 8410-2 ####[facility] LABCLIA [id number] [place] [address] [place] WBC (Bld) [#/Vol] 4.35 10*3/uL Normal 3.70-11.00 [facility] Comment on above: Order Comment: Speci men Type: BLOOD SPECIMENOrdering Facility: [facility] Address: [address] Performed By: #### 5 8410-2 ####[facility] LABIA [id number] [place] [address] [place] CNDSon 11-18-2022 CNDS Normal [facility] Basic metabolic 2000 panelon 11-17-2022 Anion gap [Moles/Vol] 14 mmol/L Normal 9-18 [facility] Comment on above: Order Comment: Speci men Type: BLOOD SPECIMENOrdering Facility: [facility] Address: [address] Performed By: #### 2 4321-2 ####[facility] LABIA [id number] [place] [address] [place] Calcium [Mass/Vol] 8.4 mg/dL Low 8.5-10.2 [facility] Comment on above: Order Comment: Speci men Type: BLOOD SPECIMENOrdering Facility: [facility] Address: [address] Performed By: #### 2 4321-2 ####[facility] LABIA [id number] [place] [address] [place] Chloride [Moles/Vol] 96 mmol/L Low 97-[address] [facility] Comment on above: Order Comment: Speci men Type: BLOOD SPECIMENOrdering Facility: [facility] Address: [address] [place] [address] Performed By: #### 2 4321-2 ####[facility] LABIA [id number] [place] [address] [place] CO2 [Moles/Vol] 23 mmol/L Normal 22-30 [facility] Comment on above: Order Comment: Speci men Type: BLOOD SPECIMENOrdering Facility: [facility] Address: [address] Performed By: #### 2 4321-2 ####[facility] LABIA [id number] [place] [address] [place] Creatinine [Mass/Vol] 6.75 mg/dL High 0.73-1.22 [facility] Comment on above: Order Comment: Speci men Type: BLOOD SPECIMENOrdering Facility: [facility] Address: [address] Performed By: #### 2 4321-2 ####[facility] LABIA [id number] [place] [address] [place] ESTIMATED GLOMERULAR FILTRATION RATE 8 mL/min/1.73m??? Low >=60 [facility] Comment on above: Order Comment: [place] Type: BLOOD SPECIMENOrdering Facility: [facility] Address: [address] [place] [address] Result Comment: Viviana mated Glomerular Filtration Rate (eGFR) is calculated using the 2020 CKD-EPI creatinine equation. This equation utilizes serum creatinine, sex, and age as parameters. The creatinine assay has traceable calibration to isotope dilution-mass spectrometry. Refer to KDIGO guidelines for clinical interpretation. In patients with unstable renal function, e.g. those with acute kidney injury, the eGFR may not accurately reflect actual GFR. Performed By: #### 2 4321-2 ####[facility] LABIA [id number] [place] [address] [place] Glucose [Mass/Vol] 109 mg/dL High 74-99 [facility] Comment on above: Order Comment: Speci men Type: BLOOD SPECIMENOrdering Facility: [facility] Address: [address] [address] Result Comment: The [place] [employer] (ADA) provides guidance for cutoff values for fasting glucose and random glucose. The ADA defines fasting as no caloric intake for at least 8 hours. Fasting plasma glucose results between 100 to 125 mg/dL indicate increased risk for diabetes (prediabetes).Fasting plasma glucose results greater than or equal to 126 mg/dL meet the criteria for diagnosis of diabetes. In the absence of unequivocal hyperglycemia, results should be confirmed by repeat testing. In a patient with classic symptoms of hyperglycemia or hyperglycemic crisis, random plasma glucose results greater than or equal to 200 mg/dL meet the criteria for diagnosis of diabetes.Reference: Standards of Medical Care in Diabetes 2016, [place] [employer]. Diabetes Care. 2016.39(Suppl 1). Performed By: #### 2 4321-2 ####[facility] LABCLIA [id number] [place] [address] [place] Potassium [Moles/Vol] 4.6 mmol/L Normal 3.7-5.1 [facility] Comment on above: Order Comment: Speci men Type: BLOOD SPECIMENOrdering Facility: [facility] Address: [address] [place] [address] Performed By: #### 2 4321-2 ####[facility] LABCLIA [id number] [place] [address] [place] Sodium [Moles/Vol] 133 mmol/L Low 136-144 [facility] Comment on above: Order Comment: Speci men Type: BLOOD SPECIMENOrdering Facility: [facility] Address: [address] [place] [address] Performed By: #### 2 4321-2 ####[facility] LABCLIA [id number] [place] [address] [place] Urea nitrogen [Mass/Vol] 66 mg/dL High 9-24 [facility] Comment on above: Order Comment: Speci men Type: BLOOD SPECIMENOrdering Facility: [facility] Address: [address] [address] Performed By: #### 2 4321-2 ####[facility] LABCLIA [id number] [place] [address] [place] Anion gap [Moles/Vol] 14 mmol/L Normal 9-18 [facility] Comment on above: Order Comment: Speci men Type: BLOOD SPECIMENOrdering Facility: [facility] Address: [address] Performed By: #### 2 4321-2 ####[facility] LABCLIA [id number] [place] [address] [place] Calcium [Mass/Vol] 7.8 mg/dL Low 8.5-10.2 [facility] Comment on above: Order Comment: Speci men Type: BLOOD SPECIMENOrdering Facility: [facility] Address: [address] Performed By: #### 2 4321-2 ####[facility] LABCLIA [id number] [place] [address] [place] Chloride [Moles/Vol] 96 mmol/L Low 97-[address] [facility] Comment on above: Order Comment: Speci men Type: BLOOD SPECIMENOrdering Facility: [facility] Address: [address] Performed By: #### 2 4321-2 ####[facility] LABCLIA [id number] [place] [address] [place] CO2 [Moles/Vol] 20 mmol/L Low 22-30 [facility] Comment on above: Order Comment: Speci men Type: BLOOD SPECIMENOrdering Facility: [facility] Address: [address] Performed By: #### 2 4321-2 ####[facility] LABCLIA [id number] [place] [address] [place] Creatinine [Mass/Vol] 7.32 mg/dL High 0.73-1.22 [facility] Comment on above: Order Comment: Speci men Type: BLOOD SPECIMENOrdering Facility: [facility] Address: [address] Performed By: #### 2 4321-2 ####[facility] LABCLIA [id number] [place] [address] [place] ESTIMATED GLOMERULAR FILTRATION RATE 7 mL/min/1.73m??? Low >=60 [facility] Comment on above: Order Comment: Vero barton Type: BLOOD SPECIMENOrdering Facility: [facility] Address: [address] [place] [address] Result Comment: Viviana mated Glomerular Filtration Rate (eGFR) is calculated using the 2020 CKD-EPI creatinine equation. This equation utilizes serum creatinine, sex, and age as parameters. The creatinine assay has traceable calibration to isotope dilution-mass spectrometry. Refer to KDIGO guidelines for clinical interpretation. In patients with unstable renal function, e.g. those with acute kidney injury, the eGFR may not accurately reflect actual GFR. Performed By: #### 2 4321-2 ####[facility] LABCLIA [id number] [place] [address] [place] Glucose [Mass/Vol] 105 mg/dL High 74-99 [facility] Comment on above: Order Comment: Vero barton Type: BLOOD SPECIMENOrdering Facility: [facility] Address: [address] [place] [address] Result Comment: The [place] [employer] (ADA) provides guidance for cutoff values for fasting glucose and random glucose. The ADA defines fasting as no caloric intake for at least 8 hours. Fasting plasma glucose results between 100 to 125 mg/dL indicate increased risk for diabetes (prediabetes).Fasting plasma glucose results greater than or equal to 126 mg/dL meet the criteria for diagnosis of diabetes. In the absence of unequivocal hyperglycemia, results should be confirmed by repeat testing. In a patient with classic symptoms of hyperglycemia or hyperglycemic crisis, random plasma glucose results greater than or equal to 200 mg/dL meet the criteria for diagnosis of diabetes.Reference: Standards of Medical Care in Diabetes 2016, [place] [employer]. Diabetes Care. 2016.39(Suppl 1). Performed By: #### 2 4321-2 ####[facility] LABIA [id number] [place] [address] [place] Potassium [Moles/Vol] 4.7 mmol/L Normal 3.7-5.1 [facility] Comment on above: Order Comment: Speci men Type: BLOOD SPECIMENOrdering Facility: [facility] Address: [address] [address] Performed By: #### 2 4321-2 ####[facility] LABCLIA [id number] [place] [address] [place] Sodium [Moles/Vol] 130 mmol/L Low 136-144 [facility] Comment on above: Order Comment: Speci men Type: BLOOD SPECIMENOrdering Facility: [facility] Address: [address] [address] Performed By: #### 2 4321-2 ####[facility] LABIA [id number] [place] [address] [place] Urea nitrogen [Mass/Vol] 71 mg/dL High 9-24 [facility] Comment on above: Order Comment: Speci men Type: BLOOD SPECIMENOrdering Facility: [facility] Address: [address] [address] Performed By: #### 2 4321-2 ####[facility] LABIA [id number] [place] [address] [place] CBC panel Auto (Bld)on 11-17 Erythrocyte distribution width (RBC) [Ratio] 16.9 % High 11.5-15.0 [facility] Comment on above: Order Comment: Speci men Type: BLOOD SPECIMENOrdering Facility: [facility] Address: [address] Performed By: #### 5 8410-2 ####[facility] LABIA [id number] [place] [address] [place] Hematocrit (Bld) [Volume fraction] 32.8 % Low 39.0-51.0 [facility] Comment on above: Order Comment: Speci men Type: BLOOD SPECIMENOrdering Facility: [facility] Address: [address] [place], [place] [address] Performed By: #### 5 8410-2 ####[facility] LABIA [id number] [address] [place] Hemoglobin (Bld) [Mass/Vol] 11.1 g/dL Low 13.0-17.0 [facility] Comment on above: Order Comment: Speci men Type: BLOOD SPECIMENOrdering Facility: [facility] Address: [address] [place], [place] [address] Performed By: #### 5 8410-2 ####[facility] [id number] [place] [address] [place] MCH (RBC) [Entitic mass] 25.2 pg Low 26.0-34.0 [facility] Comment on above: Order Comment: Speci men Type: BLOOD SPECIMENOrdering Facility: [facility] Address: [address] [place], [place] [address] Performed By: #### 5 8410-2 ####[facility] [id number] [address] [place] MCHC (RBC) [Mass/Vol] 33.8 g/dL Normal 30.5-36.0 [facility] Comment on above: Order Comment: Speci men Type: BLOOD SPECIMENOrdering Facility: [facility] Address: [address] [place], [place] [address] Performed By: #### 5 8410-2 ####[facility] [id number] [address] [place] MCV (RBC) [Entitic vol] 74.4 fL Low 80.0-100.0 [facility] Comment on above: Order Comment: Speci men Type: BLOOD SPECIMENOrdering Facility: [facility] Address: [address] [place], [place] [address] Performed By: #### 5 8410-2 ####[facility] [id number] [address] [id number] [address] [place] Nucleated RBC (Bld) [#/Vol] 10*3/uL Normal <0.01 [facility] Comment on above: Order Comment: Speci men Type: BLOOD SPECIMENOrdering Facility: [facility] Address: [address] [place], [place] [address] Performed By: #### 5 8410-2 ####[facility] LABIA [id number] [place] [address] [place] Platelet mean volume (Bld) [Entitic vol] 10.0 fL Normal 9.0-12.7 [facility] Comment on above: Order Comment: Speci men Type: BLOOD SPECIMENOrdering Facility: [facility] Address: [address] [place], [place] [address] Performed By: #### 5 8410-2 ####[facility] LABCLIA [id number] [place] [address] [place] Platelets (Bld) [#/Vol] 180 10*3/uL Normal 150-400 [facility] Comment on above: Order Comment: Speci men Type: BLOOD SPECIMENOrdering Facility: [facility] Address: [address] [place], [place] [address] Performed By: #### 5 8410-2 ####[facility] LABIA [id number] [place] [address] [place] RBC (Bld) [#/Vol] 4.41 10*6/uL Normal 4.20-6.00 [facility] Comment on above: Order Comment: Speci men Type: BLOOD SPECIMENOrdering Facility: [facility] Address: [address] [place], [place] [address] Performed By: #### 5 8410-2 ####[facility] LABCLIA [id number] [place] [address] [place] WBC (Bld) [#/Vol] 5.62 10*3/uL Normal 3.70-11.00 [facility] Comment on above: Order Comment: Speci men Type: BLOOD SPECIMENOrdering Facility: [facility] Address: [address] Performed By: #### 5 8410-2 ####[facility] LABCLIA [id number] [place] [address] [place] Basic metabolic 2000 panelon 11-16-2022 Anion gap [Moles/Vol] 11 mmol/L Normal 9-18 [facility] Comment on above: Order Comment: Speci men Type: BLOOD SPECIMENOrdering Facility: [facility] Address: [address] Performed By: #### 2 4321-2 ####[facility] LABCLIA [id number] [place] [address] [place] Calcium [Mass/Vol] 7.7 mg/dL Low 8.5-10.2 [facility] Comment on above: Order Comment: Speci men Type: BLOOD SPECIMENOrdering Facility: [facility] Address: [address] Performed By: #### 2 4321-2 ####[facility] LABCLIA [id number] [place] [address] [place] Chloride [Moles/Vol] 93 mmol/L Low 97-[address] [facility] Comment on above: Order Comment: Speci men Type: BLOOD SPECIMENOrdering Facility: [facility] Address: [address] Performed By: #### 2 4321-2 ####[facility] LABCLIA [id number] [place] [address] [place] CO2 [Moles/Vol] 22 mmol/L Normal 22-30 [facility] Comment on above: Order Comment: Speci men Type: BLOOD SPECIMENOrdering Facility: [facility] Address: [address] Performed By: #### 2 4321-2 ####[facility] LABCLIA [id number] [place] [address] [place] Creatinine [Mass/Vol] 7.38 mg/dL High 0.73-1.22 [facility] Comment on above: Order Comment: Speci men Type: BLOOD SPECIMENOrdering Facility: [facility] Address: [address] [address] Performed By: #### 2 4321-2 ####[facility] LABIA [id number] [place] [address] [place] ESTIMATED GLOMERULAR FILTRATION RATE 7 mL/min/1.73m??? Low >=60 [facility] Comment on above: Order Comment: Speci men Type: BLOOD SPECIMENOrdering Facility: [facility] Address: [address] [place] [address] Result Comment: Viviana mated Glomerular Filtration Rate (eGFR) is calculated using the 2020 CKD-EPI creatinine equation. This equation utilizes serum creatinine, sex, and age as parameters. The creatinine assay has traceable calibration to isotope dilution-mass spectrometry. Refer to KDIGO guidelines for clinical interpretation. In patients with unstable renal function, e.g. those with acute kidney injury, the eGFR may not accurately reflect actual GFR. Performed By: #### 2 4321-2 ####[facility] LABIA [id number] [place] [address] [place] Glucose [Mass/Vol] 123 mg/dL High 74-99 [facility] Comment on above: Order Comment: Speci men Type: BLOOD SPECIMENOrdering Facility: [facility] Address: [address] [address] Result Comment: The [place] Diabetes Association (ADA) provides guidance for cutoff values for fasting glucose and random glucose. The ADA defines fasting as no caloric intake for at least 8 hours. Fasting plasma glucose results between 100 to 125 mg/dL indicate increased risk for diabetes (prediabetes).Fasting plasma glucose results greater than or equal to 126 mg/dL meet the criteria for diagnosis of diabetes. In the absence of unequivocal hyperglycemia, results should be confirmed by repeat testing. In a patient with classic symptoms of hyperglycemia or hyperglycemic crisis, random plasma glucose results greater than or equal to 200 mg/dL meet the criteria for diagnosis of diabetes.Reference: Standards of Medical Care in Diabetes 2016, [place] [employer]. Diabetes Care. 2016.39(Suppl 1). Performed By: #### 2 4321-2 ####[facility] LABCLIA [id number] [place] [address] [place] Potassium [Moles/Vol] 4.8 mmol/L Normal 3.7-5.1 [facility] Comment on above: Order Comment: Speci men Type: BLOOD SPECIMENOrdering Facility: [facility] Address: [address] [place] [address] Performed By: #### 2 4321-2 ####[facility] LABCLIA [id number] [place] [address] [place] Sodium [Moles/Vol] 126 mmol/L Low 136-144 [facility] Comment on above: Order Comment: Speci men Type: BLOOD SPECIMENOrdering Facility: [facility] Address: [address] [place] [address] Performed By: #### 2 4321-2 ####[facility] LABCLIA [id number] [place] [address] [place] Urea nitrogen [Mass/Vol] 69 mg/dL High 9-24 [facility] Comment on above: Order Comment: Speci men Type: BLOOD SPECIMENOrdering Facility: [facility] Address: [address] [address] Performed By: #### 2 4321-2 ####[facility] LABCLIA [id number] [place] [address] [place] Anion gap [Moles/Vol] 14 mmol/L Normal 9-18 [facility] Comment on above: Order Comment: Speci men Type: BLOOD SPECIMENOrdering Facility: [facility] Address: [address] [place], [place] [address] Performed By: #### 2 4321-2 ####[facility] LABCLIA [id number] [place] [address] [place] Calcium [Mass/Vol] 7.9 mg/dL Low 8.5-10.2 [facility] Comment on above: Order Comment: Speci men Type: BLOOD SPECIMENOrdering Facility: [facility] Address: [address] Performed By: #### 2 4321-2 ####[facility] LABCLIA [id number] [place] [address] [place] Chloride [Moles/Vol] 93 mmol/L Low 97-[address] [facility] Comment on above: Order Comment: Speci men Type: BLOOD SPECIMENOrdering Facility: [facility] Address: [address] [place], [place] [address] Performed By: #### 2 4321-2 ####[facility] LABCLIA [id number] [place] [address] [place] CO2 [Moles/Vol] 20 mmol/L Low 22-30 [facility] Comment on above: Order Comment: Speci men Type: BLOOD SPECIMENOrdering Facility: [facility] Address: [address] [place], [place] [address] Performed By: #### 2 4321-2 ####[facility] LABCLIA [id number] [place] [address] [place] Creatinine [Mass/Vol] 7.41 mg/dL High 0.73-1.22 [facility] Comment on above: Order Comment: Speci men Type: BLOOD SPECIMENOrdering Facility: [facility] Address: [address] Performed By: #### 2 4321-2 ####[facility] LABCLIA [id number] [place] [address] [place] ESTIMATED GLOMERULAR FILTRATION RATE 7 mL/min/1.73m??? Low >=60 [facility] Comment on above: Order Comment: Vero barton Type: BLOOD SPECIMENOrdering Facility: [facility] Address: [address] [place] [address] Result Comment: Viviana mated Glomerular Filtration Rate (eGFR) is calculated using the 2020 CKD-EPI creatinine equation. This equation utilizes serum creatinine, sex, and age as parameters. The creatinine assay has traceable calibration to isotope dilution-mass spectrometry. Refer to KDIGO guidelines for clinical interpretation. In patients with unstable renal function, e.g. those with acute kidney injury, the eGFR may not accurately reflect actual GFR. Performed By: #### 2 4321-2 ####[facility] LABIA [id number] [place] [address] [place] Glucose [Mass/Vol] 95 mg/dL Normal 74-99 [facility] Comment on above: Order Comment: Vero barton Type: BLOOD SPECIMENOrdering Facility: [facility] Address: [address] [place] [address] Result Comment: The [place] Diabetes Association (ADA) provides guidance for cutoff values for fasting glucose and random glucose. The ADA defines fasting as no caloric intake for at least 8 hours. Fasting plasma glucose results between 100 to 125 mg/dL indicate increased risk for diabetes (prediabetes).Fasting plasma glucose results greater than or equal to 126 mg/dL meet the criteria for diagnosis of diabetes. In the absence of unequivocal hyperglycemia, results should be confirmed by repeat testing. In a patient with classic symptoms of hyperglycemia or hyperglycemic crisis, random plasma glucose results greater than or equal to 200 mg/dL meet the criteria for diagnosis of diabetes.Reference: Standards of Medical Care in Diabetes 2016, [place] [employer]. Diabetes Care. 2016.39(Suppl 1). Performed By: #### 2 4321-2 ####[facility] LABIA [id number] [place] [address] [place] Potassium [Moles/Vol] 4.9 mmol/L Normal 3.7-5.1 [facility] Comment on above: Order Comment: Speci men Type: BLOOD SPECIMENOrdering Facility: [facility] Address: [address] [address] Performed By: #### 2 4321-2 ####[facility] LABCLIA [id number] [place] [address] [place] Sodium [Moles/Vol] 127 mmol/L Low 136-144 [facility] Comment on above: Order Comment: Speci men Type: BLOOD SPECIMENOrdering Facility: [facility] Address: [address] [address] Performed By: #### 2 4321-2 ####[facility] LABCLIA [id number] [place] [address] [place] Urea nitrogen [Mass/Vol] 64 mg/dL High 9-24 [facility] Comment on above: Order Comment: Speci men Type: BLOOD SPECIMENOrdering Facility: [facility] Address: [address] [place] [address] Performed By: #### 2 4321-2 ####[facility] LABIA [id number] [place] [address] [place] CASE MANAGEMon 11-16-2022 CASE MANAGEM Normal [facility] CBC panel Auto (Bld)on 11-16 Erythrocyte distribution width (RBC) [Ratio] 16.7 % High 11.5-15.0 [facility] Comment on above: Order Comment: Speci men Type: BLOOD SPECIMENOrdering Facility: [facility] Address: [address] [place] [address] Performed By: #### 5 8410-2 ####[facility] LABIA [id number] [place] [address] [place] Hematocrit (Bld) [Volume fraction] 34.1 % Low 39.0-51.0 [facility] Comment on above: Order Comment: Speci men Type: BLOOD SPECIMENOrdering Facility: [facility] Address: [address] Performed By: #### 5 8410-2 ####[facility] LABIA [id number] [place] [address] [place] Hemoglobin (Bld) [Mass/Vol] 11.5 g/dL Low 13.0-17.0 [facility] Comment on above: Order Comment: Speci men Type: BLOOD SPECIMENOrdering Facility: [facility] Address: [address] Performed By: #### 5 8410-2 ####[facility] LABIA [id number] [place] [address] [place] MCH (RBC) [Entitic mass] 25.2 pg Low 26.0-34.0 [facility] Comment on above: Order Comment: Speci men Type: BLOOD SPECIMENOrdering Facility: [facility] Address: [address] Performed By: #### 5 8410-2 ####[facility] LABIA [id number] [address] [place] MCHC (RBC) [Mass/Vol] 33.7 g/dL Normal 30.5-36.0 [facility] Comment on above: Order Comment: Speci men Type: BLOOD SPECIMENOrdering Facility: [facility] Address: [address] Performed By: #### 5 8410-2 ####[facility] LABIA [id number] [place] [address] [place] MCV (RBC) [Entitic vol] 74.6 fL Low 80.0-100.0 [facility] Comment on above: Order Comment: Speci men Type: BLOOD SPECIMENOrdering Facility: [facility] Address: [address] Performed By: #### 5 8410-2 ####[facility] LABCLIA [id number] [place] [address] [place] Nucleated RBC (Bld) [#/Vol] 10*3/uL Normal <0.01 [facility] Comment on above: Order Comment: Speci men Type: BLOOD SPECIMENOrdering Facility: [facility] Address: [address] [place] [address] Performed By: #### 5 8410-2 ####[facility] LABIA [id number] [place] [address] [place] Platelet mean volume (Bld) [Entitic vol] 9.5 fL Normal 9.0-12.7 [facility] Comment on above: Order Comment: Speci men Type: BLOOD SPECIMENOrdering Facility: [facility] Address: [address] [place] [address] Performed By: #### 5 8410-2 ####[facility] LABIA [id number] [place] [address] [place] Platelets (Bld) [#/Vol] 161 10*3/uL Normal 150-400 [facility] Comment on above: Order Comment: Speci men Type: BLOOD SPECIMENOrdering Facility: [facility] Address: [address] [place] [address] Performed By: #### 5 8410-2 ####[facility] LABIA [id number] [place] [address] [place] RBC (Bld) [#/Vol] 4.57 10*6/uL Normal 4.20-6.00 [facility] Comment on above: Order Comment: Speci men Type: BLOOD SPECIMENOrdering Facility: [facility] Address: [address] [place], [place] [address] Performed By: #### 5 8410-2 ####[facility] LABIA [id number] [place] [address] [place] WBC (Bld) [#/Vol] 5.60 10*3/uL Normal 3.70-11.00 [facility] Comment on above: Order Comment: Speci men Type: BLOOD SPECIMENOrdering Facility: [facility] Address: [address] [place] [address] Performed By: #### 5 8410-2 ####[facility] LABCLIA [id number] [place] [address] [place] CONSULT PROGon 11-16-2022 CONSULT PROG Normal [facility] Basic metabolic 2000 panelon 11-15-2022 Anion gap [Moles/Vol] 13 mmol/L Normal 9-18 [facility] Comment on above: Order Comment: Speci men Type: BLOOD SPECIMENOrdering Facility: [facility] Address: [address] [place] [address] Performed By: #### 2 4321-2 ####[facility] LABCLIA [id number] [place] [address] [place] Calcium [Mass/Vol] 7.9 mg/dL Low 8.5-10.2 [facility] Comment on above: Order Comment: Speci men Type: BLOOD SPECIMENOrdering Facility: [facility] Address: [address] [place] [address] Performed By: #### 2 4321-2 ####[facility] LABCLIA [id number] [place] [address] [place] Chloride [Moles/Vol] 91 mmol/L Low 97-[address] [facility] Comment on above: Order Comment: Speci men Type: BLOOD SPECIMENOrdering Facility: [facility] Address: [address] [place] [address] Performed By: #### 2 4321-2 ####[facility] LABCLIA [id number] [place] [address] [place] CO2 [Moles/Vol] 21 mmol/L Low 22-30 [facility] Comment on above: Order Comment: Speci men Type: BLOOD SPECIMENOrdering Facility: [facility] Address: [address] [address] Performed By: #### 2 4321-2 ####[facility] [id number] [address] [place] Creatinine [Mass/Vol] 7.28 mg/dL High 0.73-1.22 [facility] Comment on above: Order Comment: Speci men Type: BLOOD SPECIMENOrdering Facility: [facility] Address: [address] [address] Performed By: #### 2 4321-2 ####[facility] [id number] [address] [place] ESTIMATED GLOMERULAR FILTRATION RATE 7 mL/min/1.73m??? Low >=60 [facility] Comment on above: Order Comment: Speci men Type: BLOOD SPECIMENOrdering Facility: [facility] Address: [address] [place] [address] Result Comment: Viviana mated Glomerular Filtration Rate (eGFR) is calculated using the 2020 CKD-EPI creatinine equation. This equation utilizes serum creatinine, sex, and age as parameters. The creatinine assay has traceable calibration to isotope dilution-mass spectrometry. Refer to KDIGO guidelines for clinical interpretation. In patients with unstable renal function, e.g. those with acute kidney injury, the eGFR may not accurately reflect actual GFR. Performed By: #### 2 4321-2 ####[facility] LABIA [id number] [place] [address] [place] Glucose [Mass/Vol] 135 mg/dL High 74-99 [facility] Comment on above: Order Comment: Virginiai men Type: BLOOD SPECIMENOrdering Facility: [facility] Address: [address] [place] [address] Result Comment: The [place] [employer] (ADA) provides guidance for cutoff values for fasting glucose and random glucose. The ADA defines fasting as no caloric intake for at least 8 hours. Fasting plasma glucose results between 100 to 125 mg/dL indicate increased risk for diabetes (prediabetes).Fasting plasma glucose results greater than or equal to 126 mg/dL meet the criteria for diagnosis of diabetes. In the absence of unequivocal hyperglycemia, results should be confirmed by repeat testing. In a patient with classic symptoms of hyperglycemia or hyperglycemic crisis, random plasma glucose results greater than or equal to 200 mg/dL meet the criteria for diagnosis of diabetes.Reference: Standards of Medical Care in Diabetes 2016, [place] [employer]. Diabetes Care. 2016.39(Suppl 1). Performed By: #### 2 4321-2 ####[facility] LABCLIA [id number] [place] [address] [place] Potassium [Moles/Vol] 4.6 mmol/L Normal 3.7-5.1 [facility] Comment on above: Order Comment: Speci men Type: BLOOD SPECIMENOrdering Facility: [facility] Address: [address] [place] [address] Performed By: #### 2 4321-2 ####[facility] LABIA [id number] [place] [address] [place] Sodium [Moles/Vol] 125 mmol/L Low 136-144 [facility] Comment on above: Order Comment: Speci men Type: BLOOD SPECIMENOrdering Facility: [facility] Address: [address] [address] Performed By: #### 2 4321-2 ####[facility] LABIA [id number] [place] [address] [place] Urea nitrogen [Mass/Vol] 66 mg/dL High 9-24 [facility] Comment on above: Order Comment: Speci men Type: BLOOD SPECIMENOrdering Facility: [facility] Address: [address] [address] Performed By: #### 2 4321-2 ####[facility] LABCLIA [id number] [place] [address] [place] Anion gap [Moles/Vol] 13 mmol/L Normal 9-18 [facility] Comment on above: Order Comment: Speci men Type: BLOOD SPECIMENOrdering Facility: [facility] Address: [address] [address] Performed By: #### 2 4321-2 ####[facility] LABCLIA [id number] [place] [address] [place] Calcium [Mass/Vol] 7.7 mg/dL Low 8.5-10.2 [facility] Comment on above: Order Comment: Speci men Type: BLOOD SPECIMENOrdering Facility: [facility] Address: [address] Performed By: #### 2 4321-2 ####[facility] LABCLIA [id number] [place] [address] [place] Chloride [Moles/Vol] 91 mmol/L Low 97-[address] [facility] Comment on above: Order Comment: Speci men Type: BLOOD SPECIMENOrdering Facility: [facility] Address: [address] Performed By: #### 2 4321-2 ####[facility] LABCLIA [id number] [place] [address] [place] CO2 [Moles/Vol] 19 mmol/L Low 22-30 [facility] Comment on above: Order Comment: Speci men Type: BLOOD SPECIMENOrdering Facility: [facility] Address: [address] Performed By: #### 2 4321-2 ####[facility] LABCLIA [id number] [place] [address] [place] Creatinine [Mass/Vol] 6.43 mg/dL High 0.73-1.22 [facility] Comment on above: Order Comment: Speci men Type: BLOOD SPECIMENOrdering Facility: [facility] Address: [address] Performed By: #### 2 4321-2 ####[facility] LABCLIA [id number] [place] [address] [place] ESTIMATED GLOMERULAR FILTRATION RATE 8 mL/min/1.73m??? Low >=60 [facility] Comment on above: Order Comment: Vero barton Type: BLOOD SPECIMENOrdering Facility: [facility] Address: [address] [address] Result Comment: Viviana mated Glomerular Filtration Rate (eGFR) is calculated using the 2020 CKD-EPI creatinine equation. This equation utilizes serum creatinine, sex, and age as parameters. The creatinine assay has traceable calibration to isotope dilution-mass spectrometry. Refer to KDIGO guidelines for clinical interpretation. In patients with unstable renal function, e.g. those with acute kidney injury, the eGFR may not accurately reflect actual GFR. Performed By: #### 2 4321-2 ####[facility] LABIA [id number] [place] [address] [place] Glucose [Mass/Vol] 104 mg/dL High 74-99 [facility] Comment on above: Order Comment: Vero barton Type: BLOOD SPECIMENOrdering Facility: [facility] Address: [address] [place] [address] Result Comment: The [place] Diabetes Association (ADA) provides guidance for cutoff values for fasting glucose and random glucose. The ADA defines fasting as no caloric intake for at least 8 hours. Fasting plasma glucose results between 100 to 125 mg/dL indicate increased risk for diabetes (prediabetes).Fasting plasma glucose results greater than or equal to 126 mg/dL meet the criteria for diagnosis of diabetes. In the absence of unequivocal hyperglycemia, results should be confirmed by repeat testing. In a patient with classic symptoms of hyperglycemia or hyperglycemic crisis, random plasma glucose results greater than or equal to 200 mg/dL meet the criteria for diagnosis of diabetes.Reference: Standards of Medical Care in Diabetes 2016, [place] [employer]. Diabetes Care. 2016.39(Suppl 1). Performed By: #### 2 4321-2 ####[facility] LABIA [id number] [id number] [address] [place] Potassium [Moles/Vol] 5.1 mmol/L Normal 3.7-5.1 [facility] Comment on above: Order Comment: Speci men Type: BLOOD SPECIMENOrdering Facility: [facility] Address: [address] [place] [address] Performed By: #### 2 4321-2 ####[facility] LABCLIA [id number] [place] [address] [place] Sodium [Moles/Vol] 123 mmol/L Low 136-144 [facility] Comment on above: Order Comment: Speci men Type: BLOOD SPECIMENOrdering Facility: [facility] Address: [address] [place] [address] Performed By: #### 2 4321-2 ####[facility] LABCLIA [id number] [place] [address] [place] Urea nitrogen [Mass/Vol] 60 mg/dL High 9-24 [facility] Comment on above: Order Comment: Speci men Type: BLOOD SPECIMENOrdering Facility: [facility] Address: [address] [place] [address] Performed By: #### 2 4321-2 ####[facility] LABCLIA [id number] [place] [address] [place] CASE MGT INIT ASSESon 2022 CASE MGT INIT ASSES Normal [facility] CBC panel Auto (Bld)on 11-15 Erythrocyte distribution width (RBC) [Ratio] 16.6 % High 11.5-15.0 [facility] Comment on above: Order Comment: Speci men Type: BLOOD SPECIMENOrdering Facility: [facility] Address: [address] [place], [place] [address] Performed By: #### 5 8410-2 ####[facility] LABCLIA [id number] [place] [address] [place] Hematocrit (Bld) [Volume fraction] 33.8 % Low 39.0-51.0 [facility] Comment on above: Order Comment: Speci men Type: BLOOD SPECIMENOrdering Facility: [facility] Address: [address] [place] [address] Performed By: #### 5 8410-2 ####[facility] LABCLIA [id number] [place] [address] [place] Hemoglobin (Bld) [Mass/Vol] 11.5 g/dL Low 13.0-17.0 [facility] Comment on above: Order Comment: Speci men Type: BLOOD SPECIMENOrdering Facility: [facility] Address: [address] [place] [address] Performed By: #### 5 8410-2 ####[facility] LABCLIA [id number] [place] [address] [place] MCH (RBC) [Entitic mass] 25.4 pg Low 26.0-34.0 [facility] Comment on above: Order Comment: Speci men Type: BLOOD SPECIMENOrdering Facility: [facility] Address: [address] [place] [address] Performed By: #### 5 8410-2 ####[facility] LABIA [id number] [place] [address] [place] MCHC (RBC) [Mass/Vol] 34.0 g/dL Normal 30.5-36.0 [facility] Comment on above: Order Comment: Speci men Type: BLOOD SPECIMENOrdering Facility: [facility] Address: [address] [place], [place] [address] Performed By: #### 5 8410-2 ####[facility] LABCLIA [id number] [place] [address] [place] MCV (RBC) [Entitic vol] 74.8 fL Low 80.0-100.0 [facility] Comment on above: Order Comment: Speci men Type: BLOOD SPECIMENOrdering Facility: [facility] Address: [address] [place] [address] Performed By: #### 5 8410-2 ####[facility] LABCLIA [id number] [place] [address] [place] Nucleated RBC (Bld) [#/Vol] 10*3/uL Normal <0.01 [facility] Comment on above: Order Comment: Speci men Type: BLOOD SPECIMENOrdering Facility: [facility] Address: [address] Performed By: #### 5 8410-2 ####[facility] LABCLIA [id number] [place] [address] [place] Platelet mean volume (Bld) [Entitic vol] 10.1 fL Normal 9.0-12.7 [facility] Comment on above: Order Comment: Speci men Type: BLOOD SPECIMENOrdering Facility: [facility] Address: [address] Performed By: #### 5 8410-2 ####[facility] LABCLIA [id number] [place] [address] [place] Platelets (Bld) [#/Vol] 146 10*3/uL Low 150-400 [facility] Comment on above: Order Comment: Speci men Type: BLOOD SPECIMENOrdering Facility: [facility] Address: [address] Performed By: #### 5 8410-2 ####[facility] LABCLIA [id number] [place] [address] [place] RBC (Bld) [#/Vol] 4.52 10*6/uL Normal 4.20-6.00 [facility] Comment on above: Order Comment: Speci men Type: BLOOD SPECIMENOrdering Facility: [facility] Address: [address] Performed By: #### 5 8410-2 ####[facility] LABCLIA [id number] [place] [address] [place] WBC (Bld) [#/Vol] 7.44 10*3/uL Normal 3.70-11.00 [facility] Comment on above: Order Comment: Speci men Type: BLOOD SPECIMENOrdering Facility: [facility] Address: [address] [address] Performed By: #### 5 8410-2 ####[facility] LABIA [id number] [place] [address] [place] CONSULT PROGon 11-15-2022 CONSULT PROG Normal [facility] CT CHEST WO IVCONon 11-15-19 CT CHEST WO IVCON Normal [facility] CT FLANK WO IVCONon 11-15-19 CT FLANK WO IVCON Normal [facility] Comprehensive metabolic 2000 panelon 11-15-2022 Albumin [Mass/Vol] 3.3 g/dL Low 3.9-4.9 [facility] Comment on above: Order Comment: Speci men Type: BLOOD SPECIMENOrdering Facility: [facility] Address: [address] Performed By: #### 2 4323-8 ####[facility] LABIA [id number] [place] [address] [place] ALP [Catalytic activity/Vol] 61 U/L Normal 38-113 [facility] Comment on above: Order Comment: Speci men Type: BLOOD SPECIMENOrdering Facility: [facility] Address: [address] Performed By: #### 2 4323-8 ####[facility] LABIA [id number] [place] [address] [place] ALT [Catalytic activity/Vol] U/L Low 10-54 [facility] Comment on above: Order Comment: Speci men Type: BLOOD SPECIMENOrdering Facility: [facility] Address: [address] [place] [address] Result Comment: Resu lt rechecked. Performed By: #### 2 4323-8 ####[facility] LABCLIA [id number] [place] [address] [place] Anion gap [Moles/Vol] 15 mmol/L Normal 9-18 [facility] Comment on above: Order Comment: Speci men Type: BLOOD SPECIMENOrdering Facility: [facility] Address: [address] Performed By: #### 2 4323-8 ####[facility] LABCLIA [id number] [place] [address] [place] AST [Catalytic activity/Vol] 17 U/L Normal 14-40 [facility] Comment on above: Order Comment: Speci men Type: BLOOD SPECIMENOrdering Facility: [facility] Address: [address] [address] Performed By: #### 2 4323-8 ####[facility] LABCLIA [id number] [place] [address] [place] Bilirubin [Mass/Vol] 0.3 mg/dL Normal 0.2-1.[address] [facility] Comment on above: Order Comment: Speci men Type: BLOOD SPECIMENOrdering Facility: [facility] Address: [address] Performed By: #### 2 4323-8 ####[facility] LABCLIA [id number] [place] [address] [place] Calcium [Mass/Vol] 8.0 mg/dL Low 8.5-10.2 [facility] Comment on above: Order Comment: Speci men Type: BLOOD SPECIMENOrdering Facility: [facility] Address: [address] Performed By: #### 2 4323-8 ####[facility] LABCLIA [id number] [place] [address] [place] Chloride [Moles/Vol] 89 mmol/L Low 97-[address] [facility] Comment on above: Order Comment: Speci men Type: BLOOD SPECIMENOrdering Facility: [facility] Address: [address] [place] [address] Performed By: #### 2 4323-8 ####[facility] LABCLIA [id number] [place] [address] [place] CO2 [Moles/Vol] 19 mmol/L Low 22-30 [facility] Comment on above: Order Comment: Speci men Type: BLOOD SPECIMENOrdering Facility: [facility] Address: [address] [place] [address] Performed By: #### 2 4323-8 ####[facility] LABCLIA [id number] [place] [address] [place] Creatinine [Mass/Vol] 7.01 mg/dL High 0.73-1.22 [facility] Comment on above: Order Comment: Speci men Type: BLOOD SPECIMENOrdering Facility: [facility] Address: [address] [place] [address] Performed By: #### 2 4323-8 ####[facility] LABCLIA [id number] [address] [place] ESTIMATED GLOMERULAR FILTRATION RATE 7 mL/min/1.73m??? Low >=60 [facility] Comment on above: Order Comment: Speci men Type: BLOOD SPECIMENOrdering Facility: [facility] Address: [address] [place] [address] Result Comment: Viviana mated Glomerular Filtration Rate (eGFR) is calculated using the 2020 CKD-EPI creatinine equation. This equation utilizes serum creatinine, sex, and age as parameters. The creatinine assay has traceable calibration to isotope dilution-mass spectrometry. Refer to KDIGO guidelines for clinical interpretation. In patients with unstable renal function, e.g. those with acute kidney injury, the eGFR may not accurately reflect actual GFR. Performed By: #### 2 4323-8 ####[facility] LABCLIA [id number] [place] [address] [place] Glucose [Mass/Vol] 113 mg/dL High 74-99 [facility] Comment on above: Order Comment: Speci men Type: BLOOD SPECIMENOrdering Facility: [facility] Address: [address] [place] [address] Result Comment: The [place] Diabetes [employer] (ADA) provides guidance for cutoff values for fasting glucose and random glucose. The ADA defines fasting as no caloric intake for at least 8 hours. Fasting plasma glucose results between 100 to 125 mg/dL indicate increased risk for diabetes (prediabetes).Fasting plasma glucose results greater than or equal to 126 mg/dL meet the criteria for diagnosis of diabetes. In the absence of unequivocal hyperglycemia, results should be confirmed by repeat testing. In a patient with classic symptoms of hyperglycemia or hyperglycemic crisis, random plasma glucose results greater than or equal to 200 mg/dL meet the criteria for diagnosis of diabetes.Reference: Standards of Medical Care in Diabetes 2016, [place] [employer]. Diabetes Care. 2016.39(Suppl 1). Performed By: #### 2 4323-8 ####[facility] LABIA [id number] [place] [address] [place] Potassium [Moles/Vol] 4.6 mmol/L Normal 3.7-5.1 [facility] Comment on above: Order Comment: Speci men Type: BLOOD SPECIMENOrdering Facility: [facility] Address: [address] [address] Performed By: #### 2 4323-8 ####[facility] LABIA [id number] [place] [address] [place] Protein [Mass/Vol] 5.3 g/dL Low 6.3-8.0 [facility] Comment on above: Order Comment: Speci men Type: BLOOD SPECIMENOrdering Facility: [facility] Address: [address] [address] Performed By: #### 2 4323-8 ####[facility] LABIA [id number] [place] [address] [place] Sodium [Moles/Vol] 123 mmol/L Low 136-144 [facility] Comment on above: Order Comment: Speci men Type: BLOOD SPECIMENOrdering Facility: [facility] Address: [address] [place] [address] Performed By: #### 2 4323-8 ####[facility] LABIA [id number] [place] [address] [place] Urea nitrogen [Mass/Vol] 67 mg/dL High 9-24 [facility] Comment on above: Order Comment: Speci men Type: BLOOD SPECIMENOrdering Facility: [facility] Address: [address] [place] [address] Performed By: #### 2 4323-8 ####[facility] [id number] [place] [address] [place] Creatinine Unsp time (U) [Ma ss/Vol]on 11-15-2022 Creatinine (U) [Mass/Vol] 27.7 mg/dL Normal 20.0-300.0 [facility] Comment on above: Order Comment: Speci men Type: URINE SPECIMENOrdering Facility: [facility] Address: [address] [place] [address] Performed By: #### 3 5674-1, 31710-6 ####[facility] [id number] [place] [address] [place] NURSING PROGon 11-15-2022 NURSING PROG Normal [facility] NURSING PROG Normal [facility] Osmolality SerPlon Osmolality [Osmolality] 282 mosm/kg Normal 275-300 [facility] Comment on above: Order Comment: Speci men Type: BLOOD SPECIMENOrdering Facility: [facility] Address: [address] [place] [address] Performed By: #### 2 692-2 ####[facility] LABIA [id number] [place] [address] [place] Osmolality Uron 11-15-2022 Osmolality (U) [Osmolality] 168 mosm/kg Normal 50-1200 [facility] Comment on above: Order Comment: Speci men Type: URINE SPECIMENOrdering Facility: [facility] Address: [address] [place] [address] Performed By: #### 2 695-5 ####[facility] LABIA [id number] [place] [address] [place] Sodium ?Tm Ur-sCncon 023 Sodium Unsp time (U) [Moles/Vol] 40 mmol/L Normal 14-216 [facility] Comment on above: Order Comment: Speci men Type: URINE SPECIMENOrdering Facility: [facility] Address: [address] [place], [place] [address] Performed By: #### 3 5674-1, 25824-5 ####[facility] [id number] [place] [address] [place] Urinalysis complete panel (U )on 11-15-2022 Bilirubin Ql (U) Negative Normal Negative [facility] Comment on above: Order Comment: Speci men Type: URINE SPECIMENOrdering Facility: [facility] Address: [address] [place], [place] [address] Performed By: #### 2 4356-8 ####[facility] LABIA [id number] [place] [address] [place] Clarity (Unsp spec) Turbid Abnormal Clear [facility] Comment on above: Order Comment: Speci men Type: URINE SPECIMENOrdering Facility: [facility] Address: [address] [place], [place] [address] Performed By: #### 2 4356-8 ####[facility] LABIA [id number] [address] [place] Color (U) Red Abnormal Yellow [facility] Comment on above: Order Comment: Speci men Type: URINE SPECIMENOrdering Facility: [facility] Address: [address] Performed By: #### 2 4356-8 ####[facility] LABCLIA [id number] [place] [address] [place] Glucose Test strip (U) [Mass/Vol] Negative Normal Trace, Negative [facility] Comment on above: Order Comment: Speci men Type: URINE SPECIMENOrdering Facility: [facility] Address: [address] Performed By: #### 2 4356-8 ####[facility] LABCLIA [id number] [place] [address] [place] Hemoglobin Ql (U) 3+ Abnormal Negative, Trace [facility] Comment on above: Order Comment: Speci men Type: URINE SPECIMENOrdering Facility: [facility] Address: [address] Performed By: #### 2 4356-8 ####[facility] LABCLIA [id number] [place] [address] [place] Ketones Ql (U) Negative Normal Trace, Negative [facility] Comment on above: Order Comment: Speci men Type: URINE SPECIMENOrdering Facility: [facility] Address: [address] Performed By: #### 2 4356-8 ####[facility] LABCLIA [id number] [place] [address] [place] Leukocyte esterase Test strip Ql (U) 500 Evelia/mL Abnormal Negative, 25 Evelia/mL [facility] Comment on above: Order Comment: Speci men Type: URINE SPECIMENOrdering Facility: [facility] Address: [address] Performed By: #### 2 4356-8 ####[facility] LABCLIA [id number] [place] [address] [place] Nitrite Ql (U) Negative Normal Negative [facility] Comment on above: Order Comment: Speci men Type: URINE SPECIMENOrdering Facility: [facility] Address: [address] [place] [address] Performed By: #### 2 4356-8 ####[facility] LABIA [id number] [place] [address] [place] pH (U) 6.5 [pH] Normal 5.0-8.0 [facility] Comment on above: Order Comment: Speci men Type: URINE SPECIMENOrdering Facility: [facility] Address: [address] [place] [address] Performed By: #### 2 4356-8 ####[facility] [id number] [address] Protein (U) [Mass/Vol] 2+ Abnormal Trace , Negative [facility] Comment on above: Order Comment: Speci men Type: URINE SPECIMENOrdering Facility: [facility] Address: [address] [place] [address] Performed By: #### 2 4356-8 ####[facility] [id number] [place] [address] [place] RBC LM.HPF (Urine sed) [#/Area] /[HPF] Abnormal 0-3 /HPF [facility] Comment on above: Order Comment: Speci men Type: URINE SPECIMENOrdering Facility: [facility] Address: [address] [place] [address] Performed By: #### 2 4356-8 ####[facility] LABIA [id number] [place] [address] [place] Specific gravity (U) [Rel density] 1.011 Normal 1.005-1.030 [facility] Comment on above: Order Comment: Speci men Type: URINE SPECIMENOrdering Facility: [facility] Address: [address] Performed By: #### 2 4356-8 ####[facility] LABCLIA [id number] [place] [address] [place] Urobilinogen Ql (U) Negative Normal Negative [facility] Comment on above: Order Comment: Speci men Type: URINE SPECIMENOrdering Facility: [facility] Address: [address] Performed By: #### 2 4356-8 ####[facility] LABIA [id number] [place] [address] [place] WBC LM.HPF (Urine sed) [#/Area] /[HPF] Abnormal 0-5 /HPF [facility] Comment on above: Order Comment: Speci men Type: URINE SPECIMENOrdering Facility: [facility] Address: [address] Performed By: #### 2 4356-8 ####[facility] LABIA [id number] [place] [address] [place] Basic metabolic 2000 panelon 11-14-2022 Anion gap [Moles/Vol] 12 mmol/L Normal 9-18 [facility] Comment on above: Order Comment: Speci men Type: BLOOD SPECIMENOrdering Facility: [facility] Address: [address] Performed By: #### 2 4321-2 ####[facility] LABIA [id number] [place] [address] [place] Calcium [Mass/Vol] 7.8 mg/dL Low 8.5-10.2 [facility] Comment on above: Order Comment: Speci men Type: BLOOD SPECIMENOrdering Facility: [facility] Address: [address] Performed By: #### 2 4321-2 ####[facility] LABCLIA [id number] [place] [address] [place] Chloride [Moles/Vol] 91 mmol/L Low 97-[address] [facility] Comment on above: Order Comment: Speci men Type: BLOOD SPECIMENOrdering Facility: [facility] Address: [address] [place] [address] Performed By: #### 2 4321-2 ####[facility] LABIA [id number] [place] [address] [place] CO2 [Moles/Vol] 20 mmol/L Low 22-30 [facility] Comment on above: Order Comment: Speci men Type: BLOOD SPECIMENOrdering Facility: [facility] Address: [address] [place] [address] Performed By: #### 2 4321-2 ####[facility] LABIA [id number] [place] [address] [place] Creatinine [Mass/Vol] 6.23 mg/dL High 0.73-1.22 [facility] Comment on above: Order Comment: Speci men Type: BLOOD SPECIMENOrdering Facility: [facility] Address: [address] [place] [address] Performed By: #### 2 4321-2 ####[facility] LABIA [id number] [address] OF [facility] ESTIMATED GLOMERULAR FILTRATION RATE 8 mL/min/1.73m??? Low >=60 [facility] Comment on above: Order Comment: Speci men Type: BLOOD SPECIMENOrdering Facility: [facility] Address: [address] [place] [address] Result Comment: Viviana mated Glomerular Filtration Rate (eGFR) is calculated using the 2020 CKD-EPI creatinine equation. This equation utilizes serum creatinine, sex, and age as parameters. The creatinine assay has traceable calibration to isotope dilution-mass spectrometry. Refer to KDIGO guidelines for clinical interpretation. In patients with unstable renal function, e.g. those with acute kidney injury, the eGFR may not accurately reflect actual GFR. Performed By: #### 2 4321-2 ####[facility] LABIA [id number] [place] [address] [place] Glucose [Mass/Vol] 120 mg/dL High 74-99 [facility] Comment on above: Order Comment: Vero men Type: BLOOD SPECIMENOrdering Facility: [facility] Address: [address] [place] [address] Result Comment: The [place] [employer] (ADA) provides guidance for cutoff values for fasting glucose and random glucose. The ADA defines fasting as no caloric intake for at least 8 hours. Fasting plasma glucose results between 100 to 125 mg/dL indicate increased risk for diabetes (prediabetes).Fasting plasma glucose results greater than or equal to 126 mg/dL meet the criteria for diagnosis of diabetes. In the absence of unequivocal hyperglycemia, results should be confirmed by repeat testing. In a patient with classic symptoms of hyperglycemia or hyperglycemic crisis, random plasma glucose results greater than or equal to 200 mg/dL meet the criteria for diagnosis of diabetes.Reference: Standards of Medical Care in Diabetes 2016, [place] [employer]. Diabetes Care. 2016.39(Suppl 1). Performed By: #### 2 4321-2 ####[facility] LABIA [id number] [place] [address] [place] Potassium [Moles/Vol] 4.9 mmol/L Normal 3.7-5.1 [facility] Comment on above: Order Comment: Vero men Type: BLOOD SPECIMENOrdering Facility: [facility] Address: [address] [place] [address] Performed By: #### 2 4321-2 ####[facility] LABIA [id number] [place] [address] [place] Sodium [Moles/Vol] 123 mmol/L Low 136-144 [facility] Comment on above: Order Comment: Vero barton Type: BLOOD SPECIMENOrdering Facility: [facility] Address: [address] [place] [address] Performed By: #### 2 4321-2 ####[facility] LABCLIA [id number] [place] [address] [place] Urea nitrogen [Mass/Vol] 60 mg/dL High 9-24 [facility] Comment on above: Order Comment: Speci men Type: BLOOD SPECIMENOrdering Facility: [facility] Address: [address] Performed By: #### 2 4321-2 ####[facility] LABCLIA [id number] [place] [address] [place] Anion gap [Moles/Vol] 13 mmol/L Normal 9-18 [facility] Comment on above: Order Comment: Speci men Type: BLOOD SPECIMENOrdering Facility: [facility] Address: [address] [place], [place] [address] Performed By: #### 2 4321-2 ####[facility] LABCLIA [id number] [place] [address] [place] Calcium [Mass/Vol] 7.8 mg/dL Low 8.5-10.2 [facility] Comment on above: Order Comment: Speci men Type: BLOOD SPECIMENOrdering Facility: [facility] Address: [address] [place], [place] [address] Performed By: #### 2 4321-2 ####[facility] LABCLIA [id number] [place] [address] [place] Chloride [Moles/Vol] 92 mmol/L Low 97-[address] [facility] Comment on above: Order Comment: Speci men Type: BLOOD SPECIMENOrdering Facility: [facility] Address: [address] Performed By: #### 2 4321-2 ####[facility] LABCLIA [id number] [address] [place] [address] [place] CO2 [Moles/Vol] 17 mmol/L Low 22-30 [facility] Comment on above: Order Comment: Speci men Type: BLOOD SPECIMENOrdering Facility: [facility] Address: [address] [place] [address] Performed By: #### 2 4321-2 ####[facility] LABCLIA [id number] [address] [place] Creatinine [Mass/Vol] 5.72 mg/dL High 0.73-1.22 [facility] Comment on above: Order Comment: Speci men Type: BLOOD SPECIMENOrdering Facility: [facility] Address: [address] [place] [address] Performed By: #### 2 4321-2 ####[facility] LABIA [id number] [address] STATES OF [facility] ESTIMATED GLOMERULAR FILTRATION RATE 9 mL/min/1.73m??? Low >=60 [facility] Comment on above: Order Comment: Speci men Type: BLOOD SPECIMENOrdering Facility: [facility] Address: [address] [place] [address] Result Comment: Viviana mated Glomerular Filtration Rate (eGFR) is calculated using the 2020 CKD-EPI creatinine equation. This equation utilizes serum creatinine, sex, and age as parameters. The creatinine assay has traceable calibration to isotope dilution-mass spectrometry. Refer to KDIGO guidelines for clinical interpretation. In patients with unstable renal function, e.g. those with acute kidney injury, the eGFR may not accurately reflect actual GFR. Performed By: #### 2 4321-2 ####[facility] LABIA [id number] [place] [address] [place] Glucose [Mass/Vol] 112 mg/dL High 74-99 [facility] Comment on above: Order Comment: Speci men Type: BLOOD SPECIMENOrdering Facility: [facility] Address: [address] [place] [address] Result Comment: The [place] Diabetes Association (ADA) provides guidance for cutoff values for fasting glucose and random glucose. The ADA defines fasting as no caloric intake for at least 8 hours. Fasting plasma glucose results between 100 to 125 mg/dL indicate increased risk for diabetes (prediabetes).Fasting plasma glucose results greater than or equal to 126 mg/dL meet the criteria for diagnosis of diabetes. In the absence of unequivocal hyperglycemia, results should be confirmed by repeat testing. In a patient with classic symptoms of hyperglycemia or hyperglycemic crisis, random plasma glucose results greater than or equal to 200 mg/dL meet the criteria for diagnosis of diabetes.Reference: Standards of Medical Care in Diabetes 2016, [place] [employer]. Diabetes Care. 2016.39(Suppl 1). Performed By: #### 2 4321-2 ####[facility] LABCLIA [id number] [place] [address] [place] Potassium [Moles/Vol] 5.2 mmol/L High 3.7-5.1 [facility] Comment on above: Order Comment: Speci men Type: BLOOD SPECIMENOrdering Facility: [facility] Address: [address] [place] [address] Performed By: #### 2 4321-2 ####[facility] LABIA [id number] [place] [address] [place] Sodium [Moles/Vol] 122 mmol/L Low 136-144 [facility] Comment on above: Order Comment: Speci men Type: BLOOD SPECIMENOrdering Facility: [facility] Address: [address] [place] [address] Performed By: #### 2 4321-2 ####[facility] LABCLIA [id number] [place] [address] [place] Urea nitrogen [Mass/Vol] 59 mg/dL High 9-24 [facility] Comment on above: Order Comment: Speci men Type: BLOOD SPECIMENOrdering Facility: [facility] Address: [address] [place] [address] Performed By: #### 2 4321-2 ####[facility] LABCLIA [id number] [place] [address] [place] Anion gap [Moles/Vol] 13 mmol/L Normal 9-18 [facility] Comment on above: Order Comment: Speci men Type: BLOOD SPECIMENOrdering Facility: [facility] Address: [address] [place] [address] Performed By: #### 2 4321-2 ####[facility] LABCLIA [id number] [place] [address] [place] Calcium [Mass/Vol] 8.3 mg/dL Low 8.5-10.2 [facility] Comment on above: Order Comment: Speci men Type: BLOOD SPECIMENOrdering Facility: [facility] Address: [address] [place] [address] Performed By: #### 2 4321-2 ####[facility] LABCLIA [id number] [place] [address] [place] Chloride [Moles/Vol] 93 mmol/L Low 97-[address] [facility] Comment on above: Order Comment: Speci men Type: BLOOD SPECIMENOrdering Facility: [facility] Address: [address] [place] [address] Performed By: #### 2 4321-2 ####[facility] LABCLIA [id number] [place] [address] [place] CO2 [Moles/Vol] 21 mmol/L Low 22-30 [facility] Comment on above: Order Comment: Speci men Type: BLOOD SPECIMENOrdering Facility: [facility] Address: [address] [place] [address] Performed By: #### 2 4321-2 ####[facility] LABCLIA [id number] [place] [address] [place] Creatinine [Mass/Vol] 5.04 mg/dL High 0.73-1.22 [facility] Comment on above: Order Comment: Speci men Type: BLOOD SPECIMENOrdering Facility: [facility] Address: [address] [place] [address] Performed By: #### 2 4321-2 ####[facility] LABCLIA [id number] [address] OF [facility] ESTIMATED GLOMERULAR FILTRATION RATE 11 mL/min/1.73m??? Low >=60 [facility] Comment on above: Order Comment: Vero barton Type: BLOOD SPECIMENOrdering Facility: [facility] Address: [address] [place] [address] Result Comment: Viviana mated Glomerular Filtration Rate (eGFR) is calculated using the 2020 CKD-EPI creatinine equation. This equation utilizes serum creatinine, sex, and age as parameters. The creatinine assay has traceable calibration to isotope dilution-mass spectrometry. Refer to KDIGO guidelines for clinical interpretation. In patients with unstable renal function, e.g. those with acute kidney injury, the eGFR may not accurately reflect actual GFR. Performed By: #### 2 4321-2 ####[facility] LABIA [id number] [place] [address] [place] Glucose [Mass/Vol] 121 mg/dL High 74-99 [facility] Comment on above: Order Comment: Vero barton Type: BLOOD SPECIMENOrdering Facility: [facility] Address: [address] [place] [address] Result Comment: The [place] Diabetes [employer] (ADA) provides guidance for cutoff values for fasting glucose and random glucose. The ADA defines fasting as no caloric intake for at least 8 hours. Fasting plasma glucose results between 100 to 125 mg/dL indicate increased risk for diabetes (prediabetes).Fasting plasma glucose results greater than or equal to 126 mg/dL meet the criteria for diagnosis of diabetes. In the absence of unequivocal hyperglycemia, results should be confirmed by repeat testing. In a patient with classic symptoms of hyperglycemia or hyperglycemic crisis, random plasma glucose results greater than or equal to 200 mg/dL meet the criteria for diagnosis of diabetes.Reference: Standards of Medical Care in Diabetes 2016, [place] [employer]. Diabetes Care. 2016.39(Suppl 1). Performed By: #### 2 4321-2 ####[facility] LABCLIA [id number] [place] [address] [place] Potassium [Moles/Vol] 4.4 mmol/L Normal 3.7-5.1 [facility] Comment on above: Order Comment: Speci men Type: BLOOD SPECIMENOrdering Facility: [facility] Address: [address] [place] [address] Performed By: #### 2 4321-2 ####[facility] LABCLIA [id number] [place] [address] [place] Sodium [Moles/Vol] 127 mmol/L Low 136-144 [facility] Comment on above: Order Comment: Speci men Type: BLOOD SPECIMENOrdering Facility: [facility] Address: [address] [place] [address] Performed By: #### 2 4321-2 ####[facility] LABCLIA [id number] [place] [address] [place] Urea nitrogen [Mass/Vol] 49 mg/dL High 9-24 [facility] Comment on above: Order Comment: Speci men Type: BLOOD SPECIMENOrdering Facility: [facility] Address: [address] [place] [address] Performed By: #### 2 4321-2 ####[facility] LABCLIA [id number] [place] [address] [place] CBC W Auto Differential pane l (Bld)on 11-14-2022 Basophils (Bld) [#/Vol] 0.04 10*3/uL Normal <0.11 [facility] Comment on above: Order Comment: Speci men Type: BLOOD SPECIMENOrdering Facility: [facility] Address: [address] [place] [address] Performed By: #### 5 7021-8 ####[facility] LABCLIA [id number] [place] [address] [place] Basophils/100 WBC (Bld) 0.5 % Normal [facility] Comment on above: Order Comment: Speci men Type: BLOOD SPECIMENOrdering Facility: [facility] Address: [address] [place], [place] [address] Performed By: #### 5 7021-8 ####[facility] LABCLIA [id number] [place] [address] [place] Differential cell count method Nom (Bld) Auto Normal [facility] Comment on above: Order Comment: Speci men Type: BLOOD SPECIMENOrdering Facility: [facility] Address: [address] [place], [place] [address] Performed By: #### 5 7021-8 ####[facility] LABCLIA [id number] [place] [address] [place] Eosinophils (Bld) [#/Vol] 0.22 10*3/uL Normal <0.46 [facility] Comment on above: Order Comment: Speci men Type: BLOOD SPECIMENOrdering Facility: [facility] Address: [address] Performed By: #### 5 7021-8 ####[facility] LABCLIA [id number] [place] [address] [place] Eosinophils/100 WBC (Bld) 2.6 % Normal [facility] Comment on above: Order Comment: Speci men Type: BLOOD SPECIMENOrdering Facility: [facility] Address: [address] [place], [place] [address] Performed By: #### 5 7021-8 ####[facility] LABCLIA [id number] [place] [address] [place] Erythrocyte distribution width (RBC) [Ratio] 16.9 % High 11.5-15.0 [facility] Comment on above: Order Comment: Speci men Type: BLOOD SPECIMENOrdering Facility: [facility] Address: [address] [place], [place] [address] Performed By: #### 5 7021-8 ####[facility] LABIA [id number] [place] [address] [place] Hematocrit (Bld) [Volume fraction] 34.9 % Low 39.0-51.0 [facility] Comment on above: Order Comment: Speci men Type: BLOOD SPECIMENOrdering Facility: [facility] Address: [address] [place] [address] Performed By: #### 5 7021-8 ####[facility] LABIA [id number] [place] [address] [place] Hemoglobin (Bld) [Mass/Vol] 11.9 g/dL Low 13.0-17.0 [facility] Comment on above: Order Comment: Speci men Type: BLOOD SPECIMENOrdering Facility: [facility] Address: [address] [place] [address] Performed By: #### 5 7021-8 ####[facility] LABIA [id number] [place] [address] [place] Immature granulocytes (Bld) [#/Vol] 0.03 10*3/uL Normal <0.10 [facility] Comment on above: Order Comment: Speci men Type: BLOOD SPECIMENOrdering Facility: [facility] Address: [address] [place] [address] Performed By: #### 5 7021-8 ####[facility] LABIA [id number] [place] [address] [place] Immature granulocytes/100 WBC (Bld) 0.4 % Normal [facility] Comment on above: Order Comment: Speci men Type: BLOOD SPECIMENOrdering Facility: [facility] Address: [address] [place] [address] Performed By: #### 5 7021-8 ####[facility] LABIA [id number] [place] [address] [place] Lymphocytes (Bld) [#/Vol] 0.41 10*3/uL Low 1.00-4.00 [facility] Comment on above: Order Comment: Speci men Type: BLOOD SPECIMENOrdering Facility: [facility] Address: [address] [place] [address] Performed By: #### 5 7021-8 ####[facility] LABIA [id number] [place] [address] [place] Lymphocytes/100 WBC (Bld) 4.9 % Normal [facility] Comment on above: Order Comment: Speci men Type: BLOOD SPECIMENOrdering Facility: [facility] Address: [address] [place] [address] Performed By: #### 5 7021-8 ####[facility] LABIA [id number] [place] [address] [place] MCH (RBC) [Entitic mass] 25.3 pg Low 26.0-34.0 [facility] Comment on above: Order Comment: Speci men Type: BLOOD SPECIMENOrdering Facility: [facility] Address: [address] [place] [address] Performed By: #### 5 7021-8 ####[facility] LABIA [id number] [place] [address] [place] MCHC (RBC) [Mass/Vol] 34.1 g/dL Normal 30.5-36.0 [facility] Comment on above: Order Comment: Speci men Type: BLOOD SPECIMENOrdering Facility: [facility] Address: [address] [place], [place] [address] Performed By: #### 5 7021-8 ####[facility] LABIA [id number] [place] [address] [place] MCV (RBC) [Entitic vol] 74.1 fL Low 80.0-100.0 [facility] Comment on above: Order Comment: Speci men Type: BLOOD SPECIMENOrdering Facility: [facility] Address: [address] Performed By: #### 5 7021-8 ####[facility] LABCLIA [id number] [place] [address] [place] Monocytes (Bld) [#/Vol] 0.61 10*3/uL Normal <0.87 [facility] Comment on above: Order Comment: Speci men Type: BLOOD SPECIMENOrdering Facility: [facility] Address: [address] Performed By: #### 5 7021-8 ####[facility] LABCLIA [id number] [place] [address] [place] Monocytes/100 WBC (Bld) 7.3 % Normal [facility] Comment on above: Order Comment: Speci men Type: BLOOD SPECIMENOrdering Facility: [facility] Address: [address] [place], [place] [address] Performed By: #### 5 7021-8 ####[facility] LABCLIA [id number] [place] [address] [place] Neutrophils (Bld) [#/Vol] 7.08 10*3/uL Normal 1.45-7.50 [facility] Comment on above: Order Comment: Speci men Type: BLOOD SPECIMENOrdering Facility: [facility] Address: [address] Performed By: #### 5 7021-8 ####[facility] LABCLIA [id number] [place] [address] [place] Neutrophils/100 WBC (Bld) 84.3 % Normal [facility] Comment on above: Order Comment: Speci men Type: BLOOD SPECIMENOrdering Facility: [facility] Address: [address] [place], [place] [address] Performed By: #### 5 7021-8 ####[facility] LABCLIA [id number] [place] [address] [place] Nucleated RBC (Bld) [#/Vol] 10*3/uL Normal <0.01 [facility] Comment on above: Order Comment: Speci men Type: BLOOD SPECIMENOrdering Facility: [facility] Address: [address] [place] [address] Performed By: #### 5 7021-8 ####[facility] LABIA [id number] [place] [address] [place] Nucleated RBC/100 WBC (Bld) [Ratio] 0.0 /100 WBC Normal [facility] Comment on above: Order Comment: Speci men Type: BLOOD SPECIMENOrdering Facility: [facility] Address: [address] [place] [address] Performed By: #### 5 7021-8 ####[facility] LABIA [id number] [place] [address] [place] Platelet mean volume (Bld) [Entitic vol] 9.4 fL Normal 9.0-12.7 [facility] Comment on above: Order Comment: Speci men Type: BLOOD SPECIMENOrdering Facility: [facility] Address: [address] [place], [place] [address] Performed By: #### 5 7021-8 ####[facility] LABIA [id number] [place] [address] [place] Platelets (Bld) [#/Vol] 145 10*3/uL Low 150-400 [facility] Comment on above: Order Comment: Speci men Type: BLOOD SPECIMENOrdering Facility: [facility] Address: [address] [place], [place] [address] Performed By: #### 5 7021-8 ####[facility] LABCLIA [id number] [place] [address] [place] RBC (Bld) [#/Vol] 4.71 10*6/uL Normal 4.20-6.00 [facility] Comment on above: Order Comment: Speci men Type: BLOOD SPECIMENOrdering Facility: [facility] Address: [address] [address] Performed By: #### 5 7021-8 ####[facility] LABCLIA [id number] [place] [address] [place] WBC (Bld) [#/Vol] 8.39 10*3/uL Normal 3.70-11.00 [facility] Comment on above: Order Comment: Speci men Type: BLOOD SPECIMENOrdering Facility: [facility] Address: [address] Performed By: #### 5 7021-8 ####[facility] LABCLIA [id number] [place] [address] [place] CONSULTon 11-14-2022 CONSULT Normal [facility] SARS-CoV-2 RNA Resp Ql ROBERT+p robeon 11-14-2022 SARS-CoV-2 (COVID-19) RNA ROBERT+probe Ql (Resp) COVID 19 RESULT: Not detected The method used is RT-PCR or an equivalent NAAT method. Reference Range(the expected result in uninfected individuals): Not detected Normal [facility] Comment on above: Performed By: #### 9 4500-6 ####[facility] LABIA [id number] [place] [address] [place] Basic metabolic 2000 panelon 11-13-2022 Anion gap [Moles/Vol] 12 mmol/L Normal 9-18 [facility] Comment on above: Order Comment: Speci men Type: BLOOD SPECIMENOrdering Facility: [facility] Address: [address] Performed By: #### 2 4321-2 ####[facility] LABCLIA [id number] [place] [address] [place] Calcium [Mass/Vol] 8.6 mg/dL Normal 8.5-10.2 [facility] Comment on above: Order Comment: Speci men Type: BLOOD SPECIMENOrdering Facility: [facility] Address: [address] [address] Performed By: #### 2 4321-2 ####[facility] LABCLIA [id number] [place] [address] [place] Chloride [Moles/Vol] 102 mmol/L Normal 97-[address] [facility] Comment on above: Order Comment: Speci men Type: BLOOD SPECIMENOrdering Facility: [facility] Address: [address] [address] Performed By: #### 2 4321-2 ####[facility] LABCLIA [id number] [place] [address] [place] CO2 [Moles/Vol] 22 mmol/L Normal 22-30 [facility] Comment on above: Order Comment: Speci men Type: BLOOD SPECIMENOrdering Facility: [facility] Address: [address] [place] [address] Performed By: #### 2 4321-2 ####[facility] LABCLIA [id number] [place] [address] [place] Creatinine [Mass/Vol] 2.82 mg/dL High 0.73-1.22 [facility] Comment on above: Order Comment: Speci men Type: BLOOD SPECIMENOrdering Facility: [facility] Address: [address] Performed By: #### 2 4321-2 ####[facility] LABCLIA [id number] [place] [address] [place] ESTIMATED GLOMERULAR FILTRATION RATE 22 mL/min/1.73m??? Low >=60 [facility] Comment on above: Order Comment: Speci men Type: BLOOD SPECIMENOrdering Facility: [facility] Address: [address] [place] [address] Result Comment: Viviana mated Glomerular Filtration Rate (eGFR) is calculated using the 2020 CKD-EPI creatinine equation. This equation utilizes serum creatinine, sex, and age as parameters. The creatinine assay has traceable calibration to isotope dilution-mass spectrometry. Refer to KDIGO guidelines for clinical interpretation. In patients with unstable renal function, e.g. those with acute kidney injury, the eGFR may not accurately reflect actual GFR. Performed By: #### 2 4321-2 ####[facility] LABIA [id number] [place] [address] [place] Glucose [Mass/Vol] 158 mg/dL High 74-99 [facility] Comment on above: Order Comment: Vero barton Type: BLOOD SPECIMENOrdering Facility: [facility] Address: [address] [address] Result Comment: The [place] Diabetes Association (ADA) provides guidance for cutoff values for fasting glucose and random glucose. The ADA defines fasting as no caloric intake for at least 8 hours. Fasting plasma glucose results between 100 to 125 mg/dL indicate increased risk for diabetes (prediabetes).Fasting plasma glucose results greater than or equal to 126 mg/dL meet the criteria for diagnosis of diabetes. In the absence of unequivocal hyperglycemia, results should be confirmed by repeat testing. In a patient with classic symptoms of hyperglycemia or hyperglycemic crisis, random plasma glucose results greater than or equal to 200 mg/dL meet the criteria for diagnosis of diabetes.Reference: Standards of Medical Care in Diabetes 2016, [place] [employer] Association. Diabetes Care. 2016.39(Suppl 1). Performed By: #### 2 4321-2 ####[facility] LABIA [id number] [place] [address] [place] Potassium [Moles/Vol] 4.7 mmol/L Normal 3.7-5.1 [facility] Comment on above: Order Comment: Vero barton Type: BLOOD SPECIMENOrdering Facility: [facility] Address: [address] [id number] Performed By: #### 2 4321-2 ####[facility] LABIA [id number] [address] [id number] [address] [place] Sodium [Moles/Vol] 136 mmol/L Normal 136-144 [facility] Comment on above: Order Comment: Speci men Type: BLOOD SPECIMENOrdering Facility: [facility] Address: [address] Performed By: #### 2 4321-2 ####[facility] LABCLIA [id number] [place] [address] [place] Urea nitrogen [Mass/Vol] 37 mg/dL High 9-24 [facility] Comment on above: Order Comment: Speci men Type: BLOOD SPECIMENOrdering Facility: [facility] Address: [address] [address] Performed By: #### 2 4321-2 ####[facility] LABCLIA [id number] [place] [address] [place] CBC W Auto Differential pane l (Bld)on 11-13-2022 Basophils (Bld) [#/Vol] 10*3/uL Normal <0.11 [facility] Comment on above: Order Comment: Speci men Type: BLOOD SPECIMENOrdering Facility: [facility] Address: [address] [place], [place] [address] Performed By: #### 5 7021-8 ####[facility] LABCLIA [id number] [place] [address] [place] Basophils/100 WBC (Bld) 0.1 % Normal [facility] Comment on above: Order Comment: Speci men Type: BLOOD SPECIMENOrdering Facility: [facility] Address: [address] [place], [place] [address] Performed By: #### 5 7021-8 ####[facility] LABCLIA [id number] [place] [address] [place] Differential cell count method Nom (Bld) Auto Normal [facility] Comment on above: Order Comment: Speci men Type: BLOOD SPECIMENOrdering Facility: [facility] Address: [address] [place] [address] Performed By: #### 5 7021-8 ####[facility] LABCLIA [id number] [place] [address] [place] Eosinophils (Bld) [#/Vol] 10*3/uL Normal <0.46 [facility] Comment on above: Order Comment: Speci men Type: BLOOD SPECIMENOrdering Facility: [facility] Address: [address] Performed By: #### 5 7021-8 ####[facility] LABCLIA [id number] [address] [place] Eosinophils/100 WBC (Bld) 0.0 % Normal [facility] Comment on above: Order Comment: Speci men Type: BLOOD SPECIMENOrdering Facility: [facility] Address: [address] [place], [place] [address] Performed By: #### 5 7021-8 ####[facility] LABCLIA [id number] [address] [place] Erythrocyte distribution width (RBC) [Ratio] 16.7 % High 11.5-15.0 [facility] Comment on above: Order Comment: Speci men Type: BLOOD SPECIMENOrdering Facility: [facility] Address: [address] [place], [place] [address] Performed By: #### 5 7021-8 ####[facility] LABCLIA [id number] [address] [place] Hematocrit (Bld) [Volume fraction] 41.3 % Normal 39.0-51.0 [facility] Comment on above: Order Comment: Speci men Type: BLOOD SPECIMENOrdering Facility: [facility] Address: [address] Performed By: #### 5 7021-8 ####[facility] LABCLIA [id number] [place] [address] [place] Hemoglobin (Bld) [Mass/Vol] 13.8 g/dL Normal 13.0-17.0 [facility] Comment on above: Order Comment: Speci men Type: BLOOD SPECIMENOrdering Facility: [facility] Address: [address] [place] [address] Performed By: #### 5 7021-8 ####[facility] LABCLIA [id number] [place] [address] [place] Immature granulocytes (Bld) [#/Vol] 0.04 10*3/uL Normal <0.10 [facility] Comment on above: Order Comment: Speci men Type: BLOOD SPECIMENOrdering Facility: [facility] Address: [address] [place] [address] Performed By: #### 5 7021-8 ####[facility] LABCLIA [id number] [address] [place] Immature granulocytes/100 WBC (Bld) 0.5 % Normal [facility] Comment on above: Order Comment: Speci men Type: BLOOD SPECIMENOrdering Facility: [facility] Address: [address] [place], [place] [address] Performed By: #### 5 7021-8 ####[facility] LABCLIA [id number] [place] [address] [place] Lymphocytes (Bld) [#/Vol] 0.30 10*3/uL Low 1.00-4.00 [facility] Comment on above: Order Comment: Speci men Type: BLOOD SPECIMENOrdering Facility: [facility] Address: [address] [place], [place] [address] Performed By: #### 5 7021-8 ####[facility] LABCLIA [id number] [place] [address] [place] Lymphocytes/100 WBC (Bld) 3.6 % Normal [facility] Comment on above: Order Comment: Speci men Type: BLOOD SPECIMENOrdering Facility: [facility] Address: [address] Performed By: #### 5 7021-8 ####[facility] LABIA [id number] [address] MCH (RBC) [Entitic mass] 25.2 pg Low 26.0-34.0 [facility] Comment on above: Order Comment: Speci men Type: BLOOD SPECIMENOrdering Facility: [facility] Address: [address] Performed By: #### 5 7021-8 ####[facility] [id number] [place] [address] [place] MCHC (RBC) [Mass/Vol] 33.4 g/dL Normal 30.5-36.0 [facility] Comment on above: Order Comment: Speci men Type: BLOOD SPECIMENOrdering Facility: [facility] Address: [address] [place], [place] [address] Performed By: #### 5 7021-8 ####[facility] [id number] [place] [address] [place] MCV (RBC) [Entitic vol] 75.5 fL Low 80.0-100.0 [facility] Comment on above: Order Comment: Speci men Type: BLOOD SPECIMENOrdering Facility: [facility] Address: [address] [place], [place] [address] Performed By: #### 5 7021-8 ####[facility] LABIA [id number] [place] [address] [place] Monocytes (Bld) [#/Vol] 0.15 10*3/uL Normal <0.87 [facility] Comment on above: Order Comment: Speci men Type: BLOOD SPECIMENOrdering Facility: [facility] Address: [address] [place], [place] [address] Performed By: #### 5 7021-8 ####[facility] LABCLIA [id number] [place] [address] [place] Monocytes/100 WBC (Bld) 1.8 % Normal [facility] Comment on above: Order Comment: Speci men Type: BLOOD SPECIMENOrdering Facility: [facility] Address: [address] [place] [address] Performed By: #### 5 7021-8 ####[facility] LABCLIA [id number] [place] [address] [place] Neutrophils (Bld) [#/Vol] 7.89 10*3/uL High 1.45-7.50 [facility] Comment on above: Order Comment: Speci men Type: BLOOD SPECIMENOrdering Facility: [facility] Address: [address] [place] [address] Performed By: #### 5 7021-8 ####[facility] LABCLIA [id number] [place] [address] [place] Neutrophils/100 WBC (Bld) 94.0 % Normal [facility] Comment on above: Order Comment: Speci men Type: BLOOD SPECIMENOrdering Facility: [facility] Address: [address] [place], [place] [address] Performed By: #### 5 7021-8 ####[facility] LABCLIA [id number] [place] [address] [place] Nucleated RBC (Bld) [#/Vol] 10*3/uL Normal <0.01 [facility] Comment on above: Order Comment: Speci men Type: BLOOD SPECIMENOrdering Facility: [facility] Address: [address] [place], [place] [address] Performed By: #### 5 7021-8 ####[facility] LABCLIA [id number] [place] [address] [place] Nucleated RBC/100 WBC (Bld) [Ratio] 0.0 /100 WBC Normal [facility] Comment on above: Order Comment: Speci men Type: BLOOD SPECIMENOrdering Facility: [facility] Address: [address] [place], [place] [address] Performed By: #### 5 7021-8 ####[facility] LABCLIA [id number] [place] [address] [place] Platelet mean volume (Bld) [Entitic vol] 9.3 fL Normal 9.0-12.7 [facility] Comment on above: Order Comment: Speci men Type: BLOOD SPECIMENOrdering Facility: [facility] Address: [address] [place], [place] [address] Performed By: #### 5 7021-8 ####[facility] LABCLIA [id number] [place] [address] [place] Platelets (Bld) [#/Vol] 165 10*3/uL Normal 150-400 [facility] Comment on above: Order Comment: Speci men Type: BLOOD SPECIMENOrdering Facility: [facility] Address: [address] [place], [place] [address] Performed By: #### 5 7021-8 ####[facility] LABIA [id number] [place] [address] [place] RBC (Bld) [#/Vol] 5.47 10*6/uL Normal 4.20-6.00 [facility] Comment on above: Order Comment: Speci men Type: BLOOD SPECIMENOrdering Facility: [facility] Address: [address] [place] [address] Performed By: #### 5 7021-8 ####[facility] LABIA [id number] [place] [address] [place] WBC (Bld) [#/Vol] 8.39 10*3/uL Normal 3.70-11.00 [facility] Comment on above: Order Comment: Speci men Type: BLOOD SPECIMENOrdering Facility: [facility] Address: [address] [id number] Performed By: #### 5 7021-8 ####[facility] LABCLIA [id number] [place] [address] [place] ANES POSTPROC EVALon 023 ANES POSTPROC EVAL Normal [facility] ANES PRE-OPon 11-12-2022 ANES PRE-OP Normal [facility] CANCER GENOMICS (CARIS)???on 11-12-2022 CANCER GENOMICS (CARIS)???RESULT View results in Scanned Documents link when available. Normal [facility] Comment on above: Order Comment: Speci men Type: TISSUE SPECIMENOrdering Facility: [facility] Address: [address] [place] [address] Performed By: #### L [id number], S ####[facility] LABCLIA [id number] [address]#### CANGEN ####AP NON-INTERFACED [place]END[place]TS CYTOLOGY NON-GYNon 3 CASE REPORT Normal [facility] Comment on above: Order Comment: Speci men Type: WASHOrdering Facility: [facility] Address: [address] [place] [address] Result Comment: [facility] Cytology Report Case: [id number] Provider: Rita Bhatt MD Collected: 11/12/2022 02:54 PMOrdering Location: Admitting Received: 11/12/2022 03:13 PMPathologist: ROCIO Helmspecimens: A) - RENAL PELVIS RIGHT WASH B) - RENAL PELVIS RIGHT BRUSH, right renal pelvis brushing for cytology Performed By: #### C YTONON ####[facility] LABCLIA [id number] [place] [address] [place] CLINICAL HISTORY Malignant neoplasm o f ureter, unspecified laterality Normal [facility] Comment on above: Order Comment: Speci men Type: WASHOrdering Facility: [facility] Address: [address] [address] Performed By: #### C YTONON ####[facility] LABCLIA [id number] [address] FINAL DIAGNOSIS Normal [facility] Comment on above: Order Comment: Speci men Type: WASHOrdering Facility: [facility] Address: [address] [address] Result Comment: A - RENAL PELVIS RIGHT WASH High-grade urothelial carcinoma.B - RENAL PELVIS RIGHT BRUSH - right renal pelvis brushing for cytology High-grade urothelial carcinoma. Performed By: #### C YTONON ####[facility] LABCLIA [id number] [address] FINAL PERFORMING LAB Normal [facility] Comment on above: Order Comment: Speci men Type: WASHOrdering Facility: [facility] Address: [address] [address] Result Comment: Tech nical component, body builder apprentice screening performed at [facility], [facility] [address] CLIA# [id number] interpretation performed at [facility], [address] [place], [place] [address] CLIA# [id number] Director: Cedric Spring M.D. Performed By: #### C YTONON ####[facility] LABCLIA [id number] [address] OF [facility] GROSS DESCRIPTION Normal [facility] Comment on above: Order Comment: Speci men Type: WASHOrdering Facility: [facility] Address: [address] [address] Result Comment: A. R ENAL PELVIS RIGHT WASH25 cc opaque red fluid with particles. ThinPrep prepared.B. RENAL PELVIS RIGHT BRUSH10 cc hazy colorless fluid with brush. ThinPrep prepared. 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] Performed By: #### C YTONON ####[facility] LABCLIA [id number] [address] OF [place] HISTORY PHYSICALon HISTORY PHYSICAL Normal [facility] NURSING PROGon 11-12-2022 NURSING PROG Normal [facility] OPERATIVE NOon 11-12-2022 OPERATIVE NO Normal [facility] PD-L1 22C3on 11-12-2022 PD-L1 BY IMMUNOHISTOCHEMISTY Normal [facility] Comment on above: Order Comment: Speci men Type: TISSUE SPECIMENOrdering Facility: [facility] Address: [address] [place] [address] Result Comment: PD-L 1 Biomarker Report Urothelial Primary (22C3)Interpretation:Negative: CPS less than 10.Results:PD-L1 Combined Positive score (CPS): 5Case Number: [id number] Analyzed: BladderBlock Number: [id number] criteria: CPS is determined by the number of PD-L1 staining cells (tumor cells, lymphocytes, macrophages) divided by total number of tumor cells evaluated, multiplied by 100.Methods:Immunohistochemistry was performed on formalin fixed paraffin-embedded tissue using the mouse monoclonal antibody 22C3 ([employer]; [place], [place]) followed by ultrasensitive bright field detection (Optiview with amplification [[employer], [place]]).KEYTRUDA is indicated for the treatment of patients with locally advanced or metastatic urothelial carcinoma who are not eligible for cisplatin-containing therapy and whose tumors express PD-L1 [Combined Positive Score (CPS) > or = 10], or in patients who are not eligible for any pokagon-containing chemotherapy regardless of PD-L1 status.Laboratory Developed Test (LDT) Disclaimer:Performance characteristics of immunohistochemical, immunofluorescent and chromogenic in-situ hybridization tests have been determined by the performing laboratory within [facility]???s [facility] [place] ([facility] [place] [facility], [facility], [facility], [facility], or [facility]) in a manner consistent with CLIA requirements. One or more of these tests have not been cleared or approved by the FDA. [facility] is regulated under CLIA as qualified to perform high-complexity testing. These tests are used for clinical purposes. They should not be regarded as investigational or for research. Positive and negative controls stain appropriately.The diagnostic interpretation was performed at [facility], [address] [place] [address] CLIA# [id number] signed out by: Billy Collado MD Performed By: #### L [id number], S ####[facility] LABCLIA [id number] [address] [place]#### CANGEN ####AP NON-INTERFACED SENDOUTS SURGICAL PATHOLOGYon 023 CASE REPORT Normal [facility] Comment on above: Order Comment: Speci men Type: TISSUE SPECIMENOrdering Facility: [facility] Address: [address] [place] [address] Result Comment: Surg [facility] Pathology Report Case: [id number] Provider: Rita Bhatt MD Collected: 11/12/2022 02:52 PMOrdering Location: Admitting Received: 11/12/2022 04:08 PMPathologist: ROCIO Delucapecimens: A) - SOFT TISSUE, right renal pelvis biopsy #1 B) - SOFT TISSUE, right renal pelvis biopsy #2 C) - BLADDER TRANSURETHRAL RESECTION, bladder tumor biopsy Performed By: #### L [id number], S ####[facility] LABCLIA [id number] [place] [address] [place]#### CANGEN ####AP NON-INTERFACED SENDOUTS CLINICAL HISTORY Normal [facility] Comment on above: Order Comment: Speci men Type: TISSUE SPECIMENOrdering Facility: [facility] Address: [address] [address] Result Comment: Pre- op diagnosis:Malignant neoplasm of ureter, 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 R enal pelvis, right #1, biopsy:- Urothelial carcinoma, papillary noninvasive, high-grade.- No invasion identified (at least acetylene cutter).B. Renal pelvis, right #2, biopsy:- Urothelial carcinoma, papillary noninvasive, high-grade.- No invasion identified (at least acetylene cutter).C. Urinary bladder, tumor, biopsy:- Urothelial carcinoma, papillary noninvasive, high-grade.- No invasion identified (at least acetylene cutter).- Muscularis propria is not present for evaluation. Performed By: #### L [id number], S ####[facility] LABCLIA [id number] [place] [address] [place]#### CANGEN ####AP NON-INTERFACED SENDOUTS FINAL PERFORMING LAB Normal [facility] Comment on above: Order Comment: Speci men Type: TISSUE SPECIMENOrdering Facility: [facility] Address: [address] [address] Result Comment: Diag nostic interpretation performed at [facility], [address] [address] CLIA# [id number] Director: Cedric Spring M.D. Performed By: #### L [id number], S ####[facility] LABCLIA [id number] [address] [place]#### CANGEN ####AP NON-INTERFACED SENDOUTS GROSS DESCRIPTION A. SOFT TISSUE Normal [facility] Comment on above: Order Comment: Speci men Type: TISSUE SPECIMENOrdering Facility: [facility] Address: [address] [place] [address] Result Comment: Rece ived in formalin are multiple segments of cylindrical tissue aggregating to 1.0 x 0.1 by less than 0.1 cm, red and of a soft and friable consistency. Totally submitted in one cassette. May not survive processing.B. SOFT TISSUEReceived in formalin is one piece of colbert pink, soft tissue measuring 0.1 x 0.1 x 0.1 cm. Totally submitted in one cassette. May not survive processing.C. BLADDER TRANSURETHRAL RESECTIONReceived in formalin are two irregular shaped segments of pink-red rubbery tissue with cautery artifact aggregating to 0.8 x 0.2 x 0.1 cm. Totally submitted formalin in one cassette.Gross examination performed at [facility], [address] [place], [place] [id number] 11/12/2022 6:55 PM Performed By: #### L [id number], S ####[facility] LABCLIA [id number] [address] OF [place]#### CANGEN ####AP NON-INTERFACED SENDOUTS CBC AUTO DIFFon 11-09-2022 BASO # 0.1 103/ul Normal 0.0-0.1 [facility] Comment on above: Performed By: #### C K, HSTROPN, CMP, BNP #### [facility] [address] [address] [address] Tan Oliveros Basophils/100 WBC (Bld) 0.7 % Normal 0.2-2.0 [facility] Comment on above: Performed By: #### C K, HSTROPN, CMP, BNP #### [facility] [address] [address] [address] Tan Oliveros EO # 0.2 103/ul Normal 0.0-0.7 [facility] Comment on above: Performed By: #### C K, HSTROPN, CMP, BNP #### [facility] [address] [place] [address] Dr. Tan Oliveros Eosinophils/100 WBC (Bld) 2.6 % Normal 0.9-7.0 [facility] Comment on above: Performed By: #### C K, HSTROPN, CMP, BNP #### [facility] [address] [place] [address] Dr. Tan Olvieros Erythrocyte distribution width (RBC) [Ratio] 17.2 % Critically high 11.0-15.0 [facility] Comment on above: Performed By: #### C K, HSTROPN, CMP, BNP #### [facility] [address] [place] [address] Dr. Tan Oliveros Hematocrit (Bld) [Volume fraction] 43.8 % Normal 42.0-54.0 [facility] Comment on above: Performed By: #### C K, HSTROPN, CMP, BNP #### [facility] [address] [place] [address] Dr. Tan Oliveros Hemoglobin (Bld) [Mass/Vol] 14.4 g/dL Normal 14.0-18.0 [facility] Comment on above: Performed By: #### C K, HSTROPN, CMP, BNP #### [facility] [address] [place] [address] Dr. Tan Oliveros IG # 0.01 10e3/ul Normal 0.00-0.03 [facility] Comment on above: Performed By: #### C K, HSTROPN, CMP, BNP #### [facility] [address] [place] [address] Dr. Tan Oliveros IG % 0.1 % Normal 0.0-0.5 [facility] Comment on above: Performed By: #### C K, HSTROPN, CMP, BNP #### [facility] [address] [place] [address] Dr. Tan Oliveros LYMPH # 1.3 103/ul Normal 1.2-3.8 [facility] Comment on above: Performed By: #### C K, HSTROPN, CMP, BNP #### [facility] [address] [place] [address] Dr. Tan Oliveros Lymphocytes/100 WBC (Bld) 18.4 % Critically low 20.5-60.0 [facility] Comment on above: Performed By: #### C K, HSTROPN, CMP, BNP #### [facility] [address] [place] [address] Dr. Tan Oliveros MANUAL DIFF REQ NO Normal [facility] Comment on above: Performed By: #### C K, HSTROPN, CMP, BNP #### [facility] [address] [place] [address] Dr. Tan Oliveros MCH (RBC) [Entitic mass] 25.0 pg Critically low 25.9-34.0 [facility] Comment on above: Performed By: #### C K, HSTROPN, CMP, BNP #### [facility] [address] [place] [address] Dr. Tan Oliveros MCHC (RBC) [Mass/Vol] 32.9 g/dL Normal 29.9-35.2 [facility] Comment on above: Performed By: #### C K, HSTROPN, CMP, BNP #### [facility] [address] [place] [address] Dr. Tan Oliveros MCV (RBC) [Entitic vol] 75.9 fL Critically low 80.0-94.0 [facility] Comment on above: Performed By: #### C K, HSTROPN, CMP, BNP #### [facility] [address] [place] [address] Dr. Tan Oliveros MONO # 0.5 103/ul Normal 0.3-0.8 [facility] Comment on above: Performed By: #### C K, HSTROPN, CMP, BNP #### [facility] [address] [place] [address] Dr. Tan Oliveros Monocytes/100 WBC (Bld) 7.1 % Normal 1.7-12.0 [facility] Comment on above: Performed By: #### C K, HSTROPN, CMP, BNP #### [facility] [address] [address] [address] Tan Oliveros NEUT # 5.1 103/ul Normal 1.4-6.5 [facility] Comment on above: Performed By: #### C K, HSTROPN, CMP, BNP #### [facility] [address] [place] [address] Dr. Tan Oliveros Neutrophils/100 WBC (Bld) 71.1 % Normal 43.0-75.0 [facility] Comment on above: Performed By: #### C K, HSTROPN, CMP, BNP #### [facility] [address] [place] [address] Dr. Tan Oliveros Platelet mean volume (Bld) [Entitic vol] 9.3 fL Critically low 9.5-13.5 [facility] Comment on above: Performed By: #### C K, HSTROPN, CMP, BNP #### [facility] [address] [place] [address] Dr. Tan Oliveros PLT 209 103/ul Normal 150-450 [facility] Comment on above: Performed By: #### C K, HSTROPN, CMP, BNP #### [facility] [address] [place] [address] Dr. Tan Oliveros RBC 5.77 106/ul Normal 4.70-6.10 [facility] Comment on above: Performed By: #### C K, HSTROPN, CMP, BNP #### [facility] [address] [place] [address] Dr. Tan Oliveros WBC 7.2 103/ul Normal 4.0-11.0 [facility] Comment on above: Performed By: #### C K, HSTROPN, CMP, BNP #### [facility] [address] [place] [address] Dr. Tan Oliveros CULTURE URINEon 11-09-2022 CULTURE URINE Culture Observations : NO GROWTH. Normal [facility] Comment on above: Performed By: #### C K, HSTROPN, CMP, BNP #### [facility] [address] [address] [address] Tan Oliveros ER URINE PROFILEon 3 Bilirubin Ql (U) Unable to perform testing due to color interference. Abnormal NEGATIVE [facility] Comment on above: Performed By: #### C K, HSTROPN, CMP, BNP #### [facility] [address] [address] [address] Tan Oliveros Clarity (U) CLEAR Normal CLEAR [facility] Comment on above: Performed By: #### C K, HSTROPN, CMP, BNP #### [facility] [address] [place] [address] Dr. Tan Oliveros Color (U) RED Abnormal YELLOW [facility] Comment on above: Performed By: #### C K, HSTROPN, CMP, BNP #### [facility] [address] [place] [address] Dr. Tan Oliveros ERUAHD A micrscopic examination will be performed if indicated. Normal [facility] Comment on above: Performed By: #### C K, HSTROPN, CMP, BNP #### [facility] [address] [place] [address] Dr. Tan Oliveros Glucose Ql (U) Unable to perform testing due to color interference. Abnormal NEGATIVE [facility] Comment on above: Performed By: #### C K, HSTROPN, CMP, BNP #### [facility] [address] [address] [address] Tan Oliveros Hemoglobin Ql (U) Unable to perform testing due to color interference. Abnormal NEGATIVE [facility] Comment on above: Performed By: #### C K, HSTROPN, CMP, BNP #### [facility] [address] [address] [address] Tan Oliveros Ketones Ql (U) Unable to perform testing due to color interference. Abnormal NEGATIVE [facility] Comment on above: Performed By: #### C K, HSTROPN, CMP, BNP #### [facility] [address] [place] [address] Dr. Tan Oliveros LEUKOCYTES Unable to perform testing due to color interference. Abnormal NEGATIVE [facility] Comment on above: Performed By: #### C K, HSTROPN, CMP, BNP #### [facility] [address] [address] [address] Tan Oliveros Nitrite Ql (U) Unable to perform testing due to color interference. Abnormal NEGATIVE [facility] Comment on above: Performed By: #### C K, HSTROPN, CMP, BNP #### [facility] [address] [address] [address] Tan Oliveros pH Unable to perform testing due to color interference. Abnormal 5-9 [facility] Comment on above: Performed By: #### C K, HSTROPN, CMP, BNP #### [facility] [address] [place] [address] Dr. Tan Oliveros SPEC GRAVITY <=1.005 Abnormal 1.005-<=1.02 5 [facility] Comment on above: Performed By: #### C K, HSTROPN, CMP, BNP #### [facility] [address] [place] [address] Dr. Tan Oliveros UA PROTEIN Unable to perform testing due to color interference. Normal NEGATIVE/ TRACE [facility] Comment on above: Performed By: #### C K, HSTROPN, CMP, BNP #### [facility] [address] [place] [address] Dr. Tan Oliveros UR MICRO IND INDICATED Normal [facility] Comment on above: Performed By: #### C K, HSTROPN, CMP, BNP #### [facility] [address] [place] [address] Dr. Tan Oliveros UROBILINOGEN Unable to perform testing due to color interference. Normal 0.2 - 1.0 [facility] Comment on above: Performed By: #### C K, HSTROPN, CMP, BNP #### [facility] [address] [place] [address] Dr. Tan Oliveros PROF 14(COMP METB)on 023 Albumin [Mass/Vol] 3.8 g/dL Normal 3.4-5.0 [facility] Comment on above: Performed By: #### C K, HSTROPN, CMP, BNP #### [facility] [address] [place] [address] Dr. Tan Oliveros Albumin/Globulin [Mass ratio] 1.3 {ratio} Normal [facility] Comment on above: Performed By: #### C K, HSTROPN, CMP, BNP #### [facility] [address] [place] [address] Dr. Tan Oliveros ALP [Catalytic activity/Vol] 81 U/L Normal 46-116 [facility] Comment on above: Performed By: #### C K, HSTROPN, CMP, BNP #### [facility] [address] [place] [address] Dr. Tan Oliveros ALT [Catalytic activity/Vol] 20 U/L Normal 16-63 [facility] Comment on above: Performed By: #### C K, HSTROPN, CMP, BNP #### [facility] [address] [place] [address] Dr. Tan Oliveros Anion gap [Moles/Vol] 14.3 mmol/L Normal [facility] Comment on above: Performed By: #### C K, HSTROPN, CMP, BNP #### [facility] [address] [place] [address] Dr. Tan Oliveros AST [Catalytic activity/Vol] 26 U/L Normal 15-37 [facility] Comment on above: Performed By: #### C K, HSTROPN, CMP, BNP #### [facility] [address] [place] [address] Dr. Tan Oliveros Bilirubin [Mass/Vol] 0.7 mg/dL Normal 0.2-1.0 [facility] Comment on above: Performed By: #### C K, HSTROPN, CMP, BNP #### [facility] [address] [place] [address] Dr. Tan Oliveros Calcium [Mass/Vol] 8.9 mg/dL Normal 8.5-10.1 [facility] Comment on above: Performed By: #### C K, HSTROPN, CMP, BNP #### [facility] [address] [place] [address] Dr. Tan Oliveros Chloride [Moles/Vol] 101 mmol/L Normal 98-107 [facility] Comment on above: Performed By: #### C K, HSTROPN, CMP, BNP #### [facility] [address] [place] [address] Dr. Tan Oliveros CO2 [Moles/Vol] 27.9 mmol/L Normal 21.0-32.0 [facility] Comment on above: Performed By: #### C K, HSTROPN, CMP, BNP #### [facility] [address] [place] [address] Dr. Tan Oliveros Creatinine [Mass/Vol] 1.85 mg/dL Critically high 0.70-1.30 [facility] Comment on above: Performed By: #### C K, HSTROPN, CMP, BNP #### [facility] [address] [place] [address] Dr. Tan Oliveros EGFR-AF YEMENI 43 mL/min/1.73m2 Critically low >=60 [facility] Comment on above: Performed By: #### C K, HSTROPN, CMP, BNP #### [facility] [address] [place] [address] Dr. Tan Oliveros EGFR-NON AF YEMENI 35 mL/min/1.73m2 Critically low >=60 [facility] Comment on above: Performed By: #### C K, HSTROPN, CMP, BNP #### [facility] [address] [place] [address] Dr. Tan Oliveros Globulin (S) [Mass/Vol] 3.0 g/dL Normal [facility] Comment on above: Performed By: #### C K, HSTROPN, CMP, BNP #### [facility] [address] [place] [address] Dr. Tan Oliveros Glucose [Mass/Vol] 114 mg/dL Critically high 74-106 [facility] Comment on above: Performed By: #### C K, HSTROPN, CMP, BNP #### [facility] [address] [address] [address] Tan Oliveros Potassium [Moles/Vol] 4.2 mmol/L Normal 3.5-5.1 [facility] Comment on above: Performed By: #### C K, HSTROPN, CMP, BNP #### [facility] [address] [address] [address] Tan Oliveros Protein [Mass/Vol] 6.8 g/dL Normal 6.4-8.2 The [facility] Comment on above: Performed By: #### C K, HSTROPN, CMP, BNP #### [facility] [address] [address] [address] Tan Oliveros Sodium [Moles/Vol] 139 mmol/L Normal 136-145 [facility] Comment on above: Performed By: #### C K, HSTROPN, CMP, BNP #### [facility] [address] [place] [address] Dr. Tan Oliveros Urea nitrogen [Mass/Vol] 27.0 mg/dL Critically high 7.0-18.0 [facility] Comment on above: Performed By: #### C K, HSTROPN, CMP, BNP #### [facility] [address] [place] [address] Dr. Tan Oliveros Urea nitrogen/Creatinine [Mass ratio] 14.6 mg/mg Normal [facility] Comment on above: Performed By: #### C K, HSTROPN, CMP, BNP #### [facility] [address] [place] [address] Dr. Tan Oliveros PROTIMEon 11-09-2022 INR Coag (PPP) [Relative time] 0.99 {INR} Normal [facility] Comment on above: Performed By: #### C K, HSTROPN, CMP, BNP #### [facility] [address] [place] [address] Dr. Tan Oliveros INR GUIDELINES SEE BELOW Normal [facility] Comment on above: Result Comment: TYRELL RED INR: 2.0 - 3.0 CONDITIONS NOT LISTED BELOW 2.5 - 3.5 FOR PROSTHETIC HEART VALVE REPLACEMENT 2.5 - 3.5 RECURRENT THROMBOSIS Performed By: #### C K, HSTROPN, CMP, BNP #### [facility] [address] [place] [address] Dr. Tan Oliveros PT Coag (PPP) [Time] 10.5 s Normal 9.0-11.6 [facility] Comment on above: Performed By: #### C K, HSTROPN, CMP, BNP #### [facility] [address] [place] [address] Dr. Tan Oliveros PTTon 11-09-2022 aPTT Coag (Bld) [Time] 28.4 s Normal 22.3-36.2 [facility] Comment on above: Performed By: #### C K, HSTROPN, CMP, BNP #### [facility] [address] [place] [address] Dr. Tan Oliveros URINE MICROSCOPIC ONLYon BACTERIA TRACE Abnormal NONE SEEN [facility] Comment on above: Performed By: #### C K, HSTROPN, CMP, BNP #### [facility] [address] [place] [address] Dr. Tan Oliveros Bacteria identified Cx Nom (U) CX ALREADY ORDERED Normal [facility] Comment on above: Performed By: #### C K, HSTROPN, CMP, BNP #### [facility] [address] [place] [address] Dr. Tan Oliveros CAST NONE SEEN Normal NONE SEEN [facility] Comment on above: Performed By: #### C K, HSTROPN, CMP, BNP #### [facility] [address] [place] [address] Dr. Tan Oliveros Crystals LM Nom (Urine sed) NONE SEEN Normal NONE SEEN [facility] Comment on above: Performed By: #### C K, HSTROPN, CMP, BNP #### [facility] [address] [place] [address] Dr. Tan Oliveros Epithelial cells LM Ql (Urine sed) NONE SEEN Normal NONE SEEN /RARE [facility] Comment on above: Performed By: #### C K, HSTROPN, CMP, BNP #### [facility] [address] [address] [address] Tan Oliveros MUCOUS NONE SEEN Normal NONE SEEN [facility] Comment on above: Performed By: #### C K, HSTROPN, CMP, BNP #### [facility] [address] [address] [address] Tan Oliveros RBC (U) [#/Vol] /uL Abnormal 0-2 [facility] Comment on above: Performed By: #### C K, HSTROPN, CMP, BNP #### [facility] [address] [address] [address] Tan Oliveros WBC 0-2 Abnormal NONE SEEN [facility] Comment on above: Performed By: #### C K, HSTROPN, CMP, BNP #### [facility] [address] [place] [address] Dr. Tan Oliveros INSULINon 09-27-2022 Insulin 13.4 uIU/mL Normal 2.6-24.9 [facility] Comment on above: Performed By: #### C K, HSTROPN, CMP, BNP #### [facility] [address] [place] [address] Dr. Tan Oliveros BNPon 09-26-2022 Natriuretic peptide B (Bld) [Mass/Vol] 715.0 pg/mL Normal <=1,800.0 [facility] Comment on above: Performed By: #### C K, HSTROPN, CMP, BNP #### [facility] [address] [place] [address] Dr. Tan Oliveros CBC AUTO DIFFon 09-26-2022 BASO # 0.0 103/ul Normal 0.0-0.1 [facility] Comment on above: Performed By: #### C K, HSTROPN, CMP, BNP #### [facility] [address] [place] [address] Dr. Tan Oliveros Basophils/100 WBC (Bld) 0.7 % Normal 0.2-2.0 [facility] Comment on above: Performed By: #### C K, HSTROPN, CMP, BNP #### [facility] [address] [place] [address] Dr. Tan Oliveros EO # 0.1 103/ul Normal 0.0-0.7 [facility] Comment on above: Performed By: #### C K, HSTROPN, CMP, BNP #### [facility] [address] [place] [address] Dr. Tan Oliveros Eosinophils/100 WBC (Bld) 2.1 % Normal 0.9-7.0 [facility] Comment on above: Performed By: #### C K, HSTROPN, CMP, BNP #### [facility] [address] [place] [address] Dr. Tan Oliveros Erythrocyte distribution width (RBC) [Ratio] 15.9 % Critically high 11.0-15.0 [facility] Comment on above: Performed By: #### C K, HSTROPN, CMP, BNP #### [facility] [address] [place] [address] Dr. Tan Oliveros Hematocrit (Bld) [Volume fraction] 45.1 % Normal 42.0-54.0 [facility] Comment on above: Performed By: #### C K, HSTROPN, CMP, BNP #### [facility] [address] [place] [address] Dr. Tan Oliveros Hemoglobin (Bld) [Mass/Vol] 14.1 g/dL Normal 14.0-18.0 [facility] Comment on above: Performed By: #### C K, HSTROPN, CMP, BNP #### [facility] [address] [place] [address] Dr. Tan Oliveros IG # 0.02 10e3/ul Normal 0.00-0.03 The [facility] Comment on above: Performed By: #### C K, HSTROPN, CMP, BNP #### [facility] [address] [place] [address] Dr. Tan Oliveros IG % 0.3 % Normal 0.0-0.5 The [facility] Comment on above: Performed By: #### C K, HSTROPN, CMP, BNP #### [facility] [address] [address] [address] Tan Oliveros LYMPH # 0.7 103/ul Critically low 1.2-3.8 The [facility] Comment on above: Performed By: #### C K, HSTROPN, CMP, BNP #### [facility] [address] [place] [address] Dr. Tan Oliveros Lymphocytes/100 WBC (Bld) 12.4 % Critically low 20.5-60.0 [facility] Comment on above: Performed By: #### C K, HSTROPN, CMP, BNP #### [facility] [address] [address] [address] Tan Oliveros MANUAL DIFF REQ NO Normal [facility] Comment on above: Performed By: #### C K, HSTROPN, CMP, BNP #### [facility] [address] [place] [address] Dr. Tan Oliveros MCH (RBC) [Entitic mass] 23.7 pg Critically low 25.9-34.0 [facility] Comment on above: Performed By: #### C K, HSTROPN, CMP, BNP #### [facility] [address] [place] [address] Dr. Tan Oliveros MCHC (RBC) [Mass/Vol] 31.3 g/dL Normal 29.9-35.2 [facility] Comment on above: Performed By: #### C K, HSTROPN, CMP, BNP #### [facility] [address] [place] [address] Dr. Tan Oliveros MCV (RBC) [Entitic vol] 75.7 fL Critically low 80.0-94.0 [facility] Comment on above: Performed By: #### C K, HSTROPN, CMP, BNP #### [facility] [address] [place] [address] Dr. Tan Oliveros MONO # 0.4 103/ul Normal 0.3-0.8 [facility] Comment on above: Performed By: #### C K, HSTROPN, CMP, BNP #### [facility] [address] [place] [address] Dr. Tan Oliveros Monocytes/100 WBC (Bld) 6.8 % Normal 1.7-12.0 [facility] Comment on above: Performed By: #### C K, HSTROPN, CMP, BNP #### [facility] [address] [place] [address] Dr. Tan Oliveros NEUT # 4.5 103/ul Normal 1.4-6.5 The [facility] Comment on above: Performed By: #### C K, HSTROPN, CMP, BNP #### [facility] [address] [place] [address] Dr. Tan Oliveros Neutrophils/100 WBC (Bld) 77.7 % Critically high 43.0-75.0 [facility] Comment on above: Performed By: #### C K, HSTROPN, CMP, BNP #### [facility] [address] [place] [address] Dr. Tan Oliveros Platelet mean volume (Bld) [Entitic vol] 9.3 fL Critically low 9.5-13.5 [facility] Comment on above: Performed By: #### C K, HSTROPN, CMP, BNP #### [facility] [address] [place] [address] Dr. Tan Oliveros PLT 205 103/ul Normal 150-450 [facility] Comment on above: Performed By: #### C K, HSTROPN, CMP, BNP #### [facility] [address] [place] [address] Dr. Tan Oliveros RBC 5.96 106/ul Normal 4.70-6.10 [facility] Comment on above: Performed By: #### C K, HSTROPN, CMP, BNP #### [facility] [address] [place] [address] Dr. Tan Oliveros WBC 5.7 103/ul Normal 4.0-11.0 [facility] Comment on above: Performed By: #### C K, HSTROPN, CMP, BNP #### [facility] [address] [place] [address] Dr. Tna Oliveros FREE THYROXINE INDEX T7on FTI 2.34 Normal 1.30-4.50 [facility] Comment on above: Performed By: #### Emir Wagner, ARMANDOTRYADIEL CMP, BNP #### [facility] [address] [place] [address] Dr. Tan Oliveros T3U 36.0 % Normal 33.0-40.0 [facility] Comment on above: Performed By: #### Emir Wagner, ARMANDOTRYADIEL CMP, BNP #### [facility] [address] [address] [address] Tan Oliveros T4 [Mass/Vol] 6.50 ug/dL Normal 4.50-12.10 The [facility] Comment on above: Performed By: #### Emir Wagner, NEEL CMP, BNP #### [facility] [address] [place] [address] Dr. Tan Oliveros GLYCOHEMOGLOBIN A1Con 2021 ADA RECOMMENDATION SEE BELOW Normal The [facility] Comment on above: Result Comment: ADA RECOMMENDED LIMIT 4.0 - 6.0 ADA THERAPEUTIC TARGET < 7.0 ACTION SUGGESTED > 7.0 Performed By: #### Emir Wagner, ARMANDOTRYADIEL CMP, BNP #### [facility] [address] [address] [address] Tan Oliveros Glucose [Mass/Vol] 114 mg/dL Normal [facility] Comment on above: Performed By: #### Emir Wagner, ARMANDOTRYADIEL CMP, BNP #### [facility] [address] [address] [address] Tan Oliveros HbA1c (Bld) [Mass fraction] 5.6 % Normal 4.5-6.2 [facility] Comment on above: Performed By: #### Emir Wagner, HSTROPElke, CMP, BNP #### [facility] [address] [place] [address] Dr. Tan Oliveros IRONon 09-26-2022 Iron [Mass/Vol] 40.0 ug/dL Critically low 65.0-175.0 [facility] Comment on above: Performed By: #### I MARY BHARDWAJ, FREDA #### [facility] [address] [address] [address] Tan Oliveros LIPID PROFILEon 09-26-2022 CHOL-HDL RATIO NORM SEE BELOW Normal [facility] Comment on above: Result Comment: 3.3 - 4.4 LOW RISK 4.4 - 7.1 AVERAGE RISK 7.1 - 11.0 MODERATE RISK >11.0 HIGH RISK Performed By: #### B LOAN REVIEW OFFICER, T7, CMP, TSH, LIPID #### [facility] [address] [address] [address] Tan Oliveros Cholesterol [Mass/Vol] 159 mg/dL Normal <=200 [facility] Comment on above: Performed By: #### B LOAN REVIEW OFFICER, T7, CMP, TSH, LIPID #### [facility] [address] [address] [address] Tan Oliveros Cholesterol in HDL [Mass/Vol] 66 mg/dL Critically high 40-60 [facility] Comment on above: Performed By: #### B LOAN REVIEW OFFICER, T7, CMP, TSH, LIPID #### [facility] [address] [address] [address] Tan Oliveros Cholesterol in LDL [Mass/Vol] 82.4 mg/dL Normal [facility] Comment on above: Performed By: #### B LOAN REVIEW OFFICER, T7, CMP, TSH, LIPID #### [facility] [address] [address] [address] Tan Oliveros Cholesterol.total/Chol esterol in HDL [Mass ratio] 2.4 {ratio} Normal [facility] Comment on above: Performed By: #### B LOAN REVIEW OFFICER, T7, CMP, TSH, LIPID #### [facility] [address] [address] [address] Tan Oliveros HDL NORMAL > or = 60 mg/dl - LO W CARDIOVASCULAR RISK <40 mg/dl - HIGH CARDIOVASCULAR RISK Normal [facility] Comment on above: Performed By: #### B LOAN REVIEW OFFICER, T7, CMP, TSH, LIPID #### [facility] [address] [address] [address] Tan Oliveros LDL CALC NORMAL SEE BELOW Normal [facility] Comment on above: Result Comment: <100 mg/dl OPTIMAL 100 - 129 mg/dl NEAR OR ABOVE OPTIMAL 130 - 159 mg/dl BORDERLINE HIGH 160 - 189 mg/dl HIGH >190 mg/dl VERY HIGH Performed By: #### B LOAN REVIEW OFFICER, T7, CMP, TSH, LIPID #### [facility] [address] [address] [address] Tan Oliveros Triglyceride [Mass/Vol] 53 mg/dL Normal <=150 [facility] Comment on above: Performed By: #### B LOAN REVIEW OFFICER, T7, CMP, TSH, LIPID #### [facility] [address] [address] [address] Tan Oliveros VLDL CALC 10.6 mg/dL Normal [facility] Comment on above: Performed By: #### B LOAN REVIEW OFFICER, T7, CMP, TSH, LIPID #### [facility] [address] [address] [address] Tan Oliveros PROF 14(COMP METB)on 022 Albumin [Mass/Vol] 3.9 g/dL Normal 3.4-5.0 [facility] Comment on above: Performed By: #### C K, HSTROPN, CMP, BNP #### [facility] [address] [address] [address] Tan Oliveros Albumin/Globulin [Mass ratio] 1.2 {ratio} Normal [facility] Comment on above: Performed By: #### C K, HSTROPN, CMP, BNP #### [facility] [address] [address] [address] Tan Oliveros ALP [Catalytic activity/Vol] 94 U/L Normal 46-116 [facility] Comment on above: Performed By: #### C K, HSTROPN, CMP, BNP #### [facility] [address] [address] [address] Tan Oliveros ALT [Catalytic activity/Vol] 17 U/L Normal 16-63 [facility] Comment on above: Performed By: #### C K, HSTROPN, CMP, BNP #### [facility] [address] [address] [address] Tan Oliveros Anion gap [Moles/Vol] 12.9 mmol/L Normal Th e [facility] Comment on above: Performed By: #### C K, HSTROPN, CMP, BNP #### [facility] [address] [address] [address] Tan Oliveros AST [Catalytic activity/Vol] 20 U/L Normal 15-37 [facility] Comment on above: Performed By: #### C K, HSTROPN, CMP, BNP #### [facility] [address] [address] [address] Tan Oliveros Bilirubin [Mass/Vol] 0.4 mg/dL Normal 0.2-1.0 [facility] Comment on above: Performed By: #### C K, HSTROPN, CMP, BNP #### [facility] [address] [place] [address] Dr. Tan Oliveros Calcium [Mass/Vol] 9.1 mg/dL Normal 8.5-10.1 [facility] Comment on above: Performed By: #### C K, HSTROPN, CMP, BNP #### [facility] [address] [address] [address] Tan Oliveros Chloride [Moles/Vol] 106 mmol/L Normal 98-107 [facility] Comment on above: Performed By: #### C K, HSTROPN, CMP, BNP #### [facility] [address] [place] [address] Dr. Tan Oliveros CO2 [Moles/Vol] 29.1 mmol/L Normal 21.0-32.0 The [facility] Comment on above: Performed By: #### C K, HSTROPN, CMP, BNP #### [facility] [address] [place] [address] Dr. Tan Oliveros Creatinine [Mass/Vol] 1.98 mg/dL Critically high 0.70-1.30 [facility] Comment on above: Performed By: #### C K, HSTROPN, CMP, BNP #### [facility] [address] [address] [address] Tan Oliveros EGFR-AF YEMENI 39 mL/min/1.73m2 Critically low >=60 [facility] Comment on above: Performed By: #### C K, HSTROPN, CMP, BNP #### [facility] [address] [place] [address] Dr. Tan Oliveros EGFR-NON AF YEMENI 32 mL/min/1.73m2 Critically low >=60 [facility] Comment on above: Performed By: #### C K, HSTROPN, CMP, BNP #### [facility] [address] [place] [address] Dr. Tan Oliveros Globulin (S) [Mass/Vol] 3.3 g/dL Normal [facility] Comment on above: Performed By: #### C K, HSTROPN, CMP, BNP #### [facility] [address] [place] [address] Dr. Tan Oliveros Glucose [Mass/Vol] 108 mg/dL Critically high 74-106 [facility] Comment on above: Performed By: #### C K, HSTROPN, CMP, BNP #### [facility] [address] [place] [address] Dr. Tan Oliveros Potassium [Moles/Vol] 4.0 mmol/L Normal 3.5-5.1 [facility] Comment on above: Performed By: #### C K, HSTROPN, CMP, BNP #### [facility] [address] [place] [address] Dr. Tan Oliveros Protein [Mass/Vol] 7.2 g/dL Normal 6.4-8.2 [facility] Comment on above: Performed By: #### C K, HSTROPN, CMP, BNP #### [facility] [address] [place] [address] Dr. Tan Oliveros Sodium [Moles/Vol] 144 mmol/L Normal 136-145 [facility] Comment on above: Performed By: #### C K, HSTROPN, CMP, BNP #### [facility] [address] [place] [address] Dr. Tan Oliveros Urea nitrogen [Mass/Vol] 43.0 mg/dL Critically high 7.0-18.0 [facility] Comment on above: Performed By: #### C K, HSTROPN, CMP, BNP #### [facility] [address] [address] [address] Tan Oliveros Urea nitrogen/Creatinine [Mass ratio] 21.7 mg/mg Normal [facility] Comment on above: Performed By: #### C K, HSTROPN, CMP, BNP #### [facility] [address] [address] [address] Tan Oliveros TSHon 09-26-2022 TSH 2.331 uIU/mL Normal 0.358-3.740 [facility] Comment on above: Performed By: #### C K, HSTROPN, CMP, BNP #### [facility] [address] [address] [address] Tan Oliveros VITAMIN D 25 OHon 09-26-2022 VIT D 25-OH 40.9 ng/mL Normal [facility] Comment on above: Performed By: #### I MARY BHARDWAJ, VITAD #### [facility] [address] [address] [address] Tan Oliveros VIT D RANGES SEE BELOW Normal [facility] Comment on above: Result Comment: <20 ng/mL Vit D deficient 20 - <30 ng/mL Vit D insufficient 30 - 100 ng/mL Vit D sufficient >100 ng/mL Potential Toxicity Performed By: #### I LASHAE PSASC, VITAD #### [facility] [address] [address] [address] Tan Oliveros 36on 09-14-2022 36 Approving, but needs appt for additional refills. Normal [facility] URINALYSIS, REFLEX MICROSCOP ICon 09-12-2022 Bilirubin Ql (U) Negative Negative [facility] Clarity (Unsp spec) Cloudy Abnormal Clear [facility] Color (U) Light [place] Abnormal Yellow [facility] Glucose Test strip (U) [Mass/Vol] 4+ Abnormal Negative [facility] Hemoglobin Ql (U) 3+ Abnormal Negative [facility] Hyaline casts (Urine sed) [#/Area] 1-3 /LPF Abnormal 0 /LPF [facility] Ketones Ql (U) Negative Negative [facility] Leukocyte esterase Test strip Ql (U) Negative Negative [facility] Nitrite Ql (U) Negative Negative [facility] pH (U) 5.5 [pH] 5.0 - 8.0 [facility] Protein (U) [Mass/Vol] 1+ Abnormal Negative Cl [facility] RBC LM.HPF (Urine sed) [#/Area] /[HPF] Abnormal 0-3 /HPF [facility] Specific gravity (U) [Rel density] 1.019 1.005 - 1.030 [facility] Urobilinogen Ql (U) Negative Negative [facility] WBC LM.HPF (Urine sed) [#/Area] 0-5 /HPF 0-5 /HPF [facility] URINE CULTUREon 03-17-2022 Bacteria identified Cx Nom (U) No growth (<1,000 CFU/ml) [facility] TYPE AND SCREEN,30 DAYon ABO O [facility] HIstorical Ab Scr Status Negative [facility] Rh Nom (Bld) Positive [facility] CT UROGRAM WO/W IVCONon 09-2 [facility] Dipstick and Microscopicon 0 02-23-2019 Appearance Nom (U) Cloudy Critically abnormal Clear [facility] Comment on above: Order Comment: Name Collection Type:: Clean-Voided Midstream Performed By: #### A DDSEDAUAPLUS, CUU #### [facility] [address] [place] [address] [place] Bacteria LM.HPF #/area (Urine sed) None Seen Normal None Seen [facility] Comment on above: Order Comment: Name Collection Type:: Clean-Voided Midstream Performed By: #### A DDONUAPLUS, CUU #### [facility] [address] [place] [address] [place] Bilirubin,Urine Negative Normal Negative [facility] Comment on above: Order Comment: Name Collection Type:: Clean-Voided Midstream Performed By: #### A DDONUAPLUS, CUU #### [facility] [address] [id number] [place] Color Nom (U) Yellow Normal Yellow [facility] Comment on above: Order Comment: Name Collection Type:: Clean-Voided Midstream Performed By: #### A DDONUAPLUS, CUU #### [facility] [address] [place] [address] Glucose Ql (U) Normal Normal Normal [facility] Comment on above: Order Comment: Name Collection Type:: Clean-Voided Midstream Performed By: #### A DDONUAPLUS, CUU #### [facility] [address] [place] [address] [place] Hyaline Casts,Urine 0-8 Normal 0-8 [facility] Comment on above: Order Comment: Name Collection Type:: Clean-Voided Midstream Result Comment: PERF ORMED BY: [place] [address] PATHOLOGIST DOOR ATTENDANT LEONARD MCCLAIN M.D. Performed By: #### A DDONUAPLUS, CUU #### [facility] [address] [place] [address] Ketones Ql (U) Negative Normal Negative [facility] Comment on above: Order Comment: Name Collection Type:: Clean-Voided Midstream Performed By: #### A DDONUAPLUS, CUU #### [address] Leukocyte esterase Test strip Ql (U) 4+ High Negative [facility] Comment on above: Order Comment: Name Collection Type:: Clean-Voided Midstream Performed By: #### A DDONUAPLUS, CUU #### [facility] [address] [place] [address] [place] Nitrite,Urine Negative Normal Negative [facility] Comment on above: Order Comment: Name Collection Type:: Clean-Voided Midstream Performed By: #### A DDONUAPLUS, CUU #### [facility] [address] [place] [address] [place] Occult Blood,Urine 3+ High Negative [facility] Comment on above: Order Comment: Name Collection Type:: Clean-Voided Midstream Result Comment: PERF ORMED BY: [place] [address] PATHOLOGIST DOOR ATTENDANT LEONARD MCCLAIN M.D. Performed By: #### A DDONUAPLUS, CUU #### [facility] [address] [place] [address] pH (U) 7.0 [pH] Normal 5.0-9.0 [facility] Comment on above: Order Comment: Name Collection Type:: Clean-Voided Midstream Performed By: #### A DDONUAPLUS, CUU #### [address] Protein mass conc (U) 30 mg/dL High Negative [facility] Comment on above: Order Comment: Name Collection Type:: Clean-Voided Midstream Performed By: #### A DDONUAPLUS, CUU #### [address] RBC LM.HPF #/area (Urine sed) [facility] [address] Comment on above: Order Comment: Name Collection Type:: Clean-Voided Midstream Performed By: #### A DDONUAPLUS, CUU #### [address] Specificy [place],Urine 1.013 Normal 1.001-1.030 [facility] Comment on above: Order Comment: Name Collection Type:: Clean-Voided Midstream Performed By: #### A DDONUAPLUS, CUU #### [address] Squamous Epithelial Cell,Urine None Seen Normal 0-2 [facility] Comment on above: Order Comment: Name Collection Type:: Clean-Voided Midstream Performed By: #### A DDONUAPLUS, CUU #### [address] Urobilinogen,Urine Normal Normal Normal [facility] Comment on above: Order Comment: Name Collection Type:: Clean-Voided Midstream Performed By: #### A DDONUAPLUS, CUU #### [place] [address] [place] WBC LM.HPF #/area (Urine sed) Innumerable High 0-4 [facility] Comment on above: Order Comment: Name Collection Type:: Clean-Voided Midstream Performed By: #### A DDSEDAUAHANG, [facility] #### [address] [id number] [facility] 02-23-2019 L - -------- Specimen: [id number] Received: 02/23/19 Status: MALCOLM Mendez Num: [id number] Spec Type: Cytology Subm Dr: Jian Rodriguez MD Tissues: A CYTOSLIDE (URINE) Procedures: Pap Stain/2 -------- Patient Age/Sex Location Account Attending Physician -------- Juan Jose Austin Sr 78/M [place] [id number] Jian Rodriguez MD -------- SPEC NUM: [id number] RECD: 02/23/19 STATUS: MALCOLM MENDEZ NUM: [id number] ALEKSANDR: 02/23/[address] [facility] [address]: Jian Rodriguez MD ENTERED: 02/23/[address] [facility] [address]: SPEC TYPE: Cytology DEPT: [facility] ORDERED: Pap Stain/2 ORDERED: Pap Stain/2 Pathological Diagnosis Urine, Thin Prep cytology: - Rare degenerated atypical urothelial cells are present. - Background numerous neutrophils are present. NOTE: Rare cluster of atypical degenerated urothelial cells are present. Clinical correlation and follow up is recommended. A. - - URINE Specimen Clinical Information Urinalysis test (UA dip stick); urine cytology Gross Received is 45 ml dark yellow murky unfixed fluid said to have been obtained as urine. A Thin Prep slide has been prepared with Papanicolaou stain for routine examination. (YJ/eliu) Microscopic One Papanicolaou stained Thin Prep slide is examined. Microscopic examination supports the pathologic diagnosis. [id number] -------- -------- Specimen: [id number] Received: 02/23/19 Status: MALCOLM Mendez Num: [id number] Spec Type: Cytology [facility] Dr: Jian Rodriguez MD Tissues: A CYTOSLIDE (URINE) Procedures: Pap Stain/2 -------- Patient: Juan Jose Austin [id number] (Continued) -------- Signed (signature on file) Julio Cesar Carr MD 02/24/19 1700 [facility] Urine Cultureon 02-23-2019 Bacteria identified Cx Nom (U) ORGANISM: Pseudomonas aeruginosa (O:PSEAER) [place] Count >100,000 100,000 CFU/ML OTHER MIXED BACTERIAL SKIN CONTAMINANTS Aerobic ADONAY Charge (Neg) ---- SUSCEPTIBILITY --- ORGANISM: O:PSEAER ANTIBIOTIC INTERPRETATION ADONAY Amikacin S <16 Aztreonam IB <8 Cefepime S <8 Ceftazidime IB 4 Ciprofloxacin S <1 Gentamicin I 8 Levofloxacin S <2 Meropenem S <4 Piperacillin/Tazobact am IB <16 Tobramycin S <4 S = SUSCEPTIBLE I = INTERMEDIATE R = RESISTANT BLANK = DATA NOT AVAILABLE, OR DRUG NOT ADVISABLE OR TESTED R* = RESISTANCE DUE TO EXTENDED SPECTRUM BETA-LACTAMASES ESBL = EXTENDED SPECTRUM BETA-LACTAMASE TFG = THYMIDINE-DEPENDENT STRAIN DARREN = BETA-LACTAMASE POSITIVE IB = INDUCIBLE BETA-LACTAMASE. APPEARS IN PLACE OF 'S' WITH SPECIES KNOWN TO POSSESS INDUCIBLE BETA-LACTAMASES. POTENTIALLY THEY MAY BECOME RESISTANT TO ALL B-LACTAM DRUGS. PERFORMED BY: [facility] [place] [address] PATHOLOGIST DOOR ATTENDANT LEONARD MCCLAIN M.D. [facility] Comment on above: Performed By: #### A JAMAR MALDONADO #### [facility] [address] [id number] [facility] Vital Signs Date Time Vital Sign Value Performing Clinician Facility 09-19-2023 14:50-0500 Diastolic blood pressure 62 mm[Hg] Chair Abernathy Work Phone: [facility] 09-19-2023 14:50-0500 Systolic blood pressure 114 mm[Hg] Chair Abernathy Work Phone: [facility] 08-29-2023 12:37-0500 Body height 162.6 cm Caesar Prado MD Work Phone: [facility] 08-29-2023 12:37-0500 Body temperature 97.5 [degF] Caesar Prado MD Work Phone: [facility] 08-29-2023 12:37-0500 Body weight 75.75 kg Caesar Prado MD Work Phone: [facility] 08-29-2023 12:37-0500 Diastolic blood pressure 58 mm[Hg] Caesar Prado MD Work Phone: [facility] 08-29-2023 12:37-0500 Heart rate 60 /min Caesar Prado MD Work Phone: [facility] 08-29-2023 12:37-0500 Respiratory rate 18 /min Caesar Prado MD Work Phone: [facility] 08-29-2023 12:37-0500 SaO2% (BldA) [Mass fraction] 97 % Caesar Prado MD Work Phone: [facility] 08-29-2023 12:37-0500 Systolic blood pressure 124 mm[Hg] Caesar Prado MD Work Phone: [facility] 07-18-2023 13:14-0400 Body height 162.6 cm Caesar Prado MD Work Phone: [facility] 07-18-2023 13:14-0400 Body temperature 97.59 [degF] Caesar Prado MD Work Phone: [facility] 07-18-2023 13:14-0400 Body weight 80.74 kg Caesar Prado MD Work Phone: [facility] 07-18-2023 13:14-0400 Diastolic blood pressure 52 mm[Hg] Caesar Prado MD Work Phone: [facility] 07-18-2023 13:14-0400 Heart rate 61 /min Caesar Prado MD Work Phone: [facility] 07-18-2023 13:14-0400 Respiratory rate 18 /min Caesar Prado MD Work Phone: [facility] 07-18-2023 13:14-0400 SaO2% (BldA) [Mass fraction] 96 % Caesar Prado MD Work Phone: [facility] 07-18-2023 13:14-0400 Systolic blood pressure 129 mm[Hg] Caesar Prado MD Work Phone: [facility] 06-27-2023 13:02-0400 Body height 162.6 cm aWyne Chavez APRN.DIMENSION QUARRY SUPERVISOR Work Phone: [facility] 06-27-2023 13:02-0400 Body temperature 97 [degF] Wayne Chavez APRN.DIMENSION QUARRY SUPERVISOR Work Phone: [facility] 06-27-2023 13:02-0400 Body weight 81.19 kg Wayne Chavez APRN.DIMENSION QUARRY SUPERVISOR Work Phone: [facility] 06-27-2023 13:02-0400 Diastolic blood pressure 56 mm[Hg] Wayne Chavez APRN.DIMENSION QUARRY SUPERVISOR Work Phone: [facility] 06-27-2023 13:02-0400 Heart rate 61 /min Wayne Wero ROLLING MILL OPERATOR HELPER.DIMENSION QUARRY SUPERVISOR Work Phone: [facility] 06-27-2023 13:02-0400 Respiratory rate 16 /min Wayne Chavez ROLLING MILL OPERATOR HELPER.DIMENSION QUARRY SUPERVISOR Work Phone: [facility] 06-27-2023 13:02-0400 SaO2% (BldA) [Mass fraction] 99 % aWyne Chavez ROLLING MILL OPERATOR HELPER.DIMENSION QUARRY SUPERVISOR Work Phone: [facility] 06-27-2023 13:02-0400 Systolic blood pressure 122 mm[Hg] Wayne Chavez ROLLING MILL OPERATOR HELPER.DIMENSION QUARRY SUPERVISOR Work Phone: [facility] 06-06-2023 13:31-0400 Body height 162.6 cm Caesar Prado MD Work Phone: [facility] 06-06-2023 13:31-0400 Body temperature 97.81 [degF] Caesar Prado MD Work Phone: [facility] 06-06-2023 13:31-0400 Body weight 80.47 kg Caesar Prado MD Work Phone: [facility] 06-06-2023 13:31-0400 Diastolic blood pressure 63 mm[Hg] Caesar Prado MD Work Phone: [facility] 06-06-2023 13:31-0400 Heart rate 60 /min Caesar Prado MD Work Phone: [facility] 06-06-2023 13:31-0400 Respiratory rate 16 /min Caesar Prado MD Work Phone: [facility] 06-06-2023 13:31-0400 SaO2% (BldA) [Mass fraction] 99 % Caesar Prado MD Work Phone: [facility] 06-06-2023 13:31-0400 Systolic blood pressure 131 mm[Hg] Caesar Prado MD Work Phone: [facility] 05-16-2023 13:02-0400 Body height 162.6 cm Caesar Prado MD Work Phone: [facility] 05-16-2023 13:02-0400 Body temperature 97.81 [degF] Caesar Prado MD Work Phone: [facility] 05-16-2023 13:02-0400 Body weight 80.65 kg Caesar Prado MD Work Phone: [facility] 05-16-2023 13:02-0400 Diastolic blood pressure 55 mm[Hg] Caesar Prado MD Work Phone: [facility] 05-16-2023 13:02-0400 Heart rate 62 /min Caesar Prado MD Work Phone: [facility] 05-16-2023 13:02-0400 Respiratory rate 18 /min Caesar Prado MD Work Phone: [facility] 05-16-2023 13:02-0400 SaO2% (BldA) [Mass fraction] 100 % Caesar Prado MD Work Phone: [facility] 05-16-2023 13:02-0400 Systolic blood pressure 116 mm[Hg] Caesar Prado MD Work Phone: [facility] 04-25-2023 12:54-0400 Body height 162.6 cm Wayne Chavez APRN.DIMENSION QUARRY SUPERVISOR Work Phone: [facility] 04-25-2023 12:54-0400 Body temperature 97.39 [degF] Wayne Chavez APRN.DIMENSION QUARRY SUPERVISOR Work Phone: [facility] 04-25-2023 12:54-0400 Body weight 80.74 kg Wayne Chavez APRN.DIMENSION QUARRY SUPERVISOR Work Phone: [facility] 04-25-2023 12:54-0400 Diastolic blood pressure 61 mm[Hg] Wayne Chavez APRN.DIMENSION QUARRY SUPERVISOR Work Phone: [facility] 04-25-2023 12:54-0400 Heart rate 66 /min Wayne Wero ROLLING MILL OPERATOR HELPER.DIMENSION QUARRY SUPERVISOR Work Phone: [facility] 04-25-2023 12:54-0400 Respiratory rate 16 /min Wayne Chavez APRN.DIMENSION QUARRY SUPERVISOR Work Phone: [facility] 04-25-2023 12:54-0400 SaO2% (BldA) [Mass fraction] 97 % Wayne Chavez ROLLING MILL OPERATOR HELPER.DIMENSION QUARRY SUPERVISOR Work Phone: [facility] 04-25-2023 12:54-0400 Systolic blood pressure 140 mm[Hg] Wayne Chavez ROLLING MILL OPERATOR HELPER.DIMENSION QUARRY SUPERVISOR Work Phone: [facility] 04-04-2023 10:25-0400 Body height 162.6 cm Wayne Chavez ROLLING MILL OPERATOR HELPER.DIMENSION QUARRY SUPERVISOR Work Phone: [facility] 04-04-2023 10:25-0400 Body temperature 97.7 [degF] Wayne Chavez ROLLING MILL OPERATOR HELPER.DIMENSION QUARRY SUPERVISOR Work Phone: [facility] 04-04-2023 10:25-0400 Body weight 80.29 kg Wayne Chavez ROLLING MILL OPERATOR HELPER.DIMENSION QUARRY SUPERVISOR Work Phone: [facility] 04-04-2023 10:25-0400 Diastolic blood pressure 62 mm[Hg] Wayne Chavez ROLLING MILL OPERATOR HELPER.DIMENSION QUARRY SUPERVISOR Work Phone: [facility] 04-04-2023 10:25-0400 Heart rate 67 /min Wayne Chavez APRN.DIMENSION QUARRY SUPERVISOR Work Phone: [facility] 04-04-2023 10:25-0400 Respiratory rate 16 /min Wayne Chavez APRN.DIMENSION QUARRY SUPERVISOR Work Phone: [facility] 04-04-2023 10:25-0400 SaO2% (BldA) [Mass fraction] 97 % Wayne Chavez APRN.DIMENSION QUARRY SUPERVISOR Work Phone: [facility] 04-04-2023 10:25-0400 Systolic blood pressure 139 mm[Hg] Wayne Chavez ROLLING MILL OPERATOR HELPER.DIMENSION QUARRY SUPERVISOR Work Phone: [facility] 03-12-2023 10:00-0400 Body weight 82.56 kg Shawn Nelson Other [employer] Other 03-12-2023 10:00-0400 Diastolic blood pressure 74 mm[Hg] Shawn Allenjuancarlos Other [facility] [employer] Other 03-12-2023 10:00-0400 Systolic blood pressure 128 mm[Hg] Shawn Tiffanyjuancarlos Other [facility] [employer] Other 01-31-2023 08:17-0400 Body height 162.6 cm Caesar Prado MD Work Phone: [facility] 01-31-2023 08:17-0400 Body temperature 97.5 [degF] Caesar Prado MD Work Phone: [facility] 01-31-2023 08:17-0400 Body weight 82.19 kg Caesar Prado MD Work Phone: [facility] 01-31-2023 08:17-0400 Diastolic blood pressure 59 mm[Hg] Caesar Prado MD Work Phone: [facility] 01-31-2023 08:17-0400 Heart rate 59 /min Caesar Prado MD Work Phone: [facility] 01-31-2023 08:17-0400 Respiratory rate 16 /min aCesar Prado MD Work Phone: [facility] 01-31-2023 08:17-0400 SaO2% (BldA) [Mass fraction] 97 % Caesar Prado MD Work Phone: [facility] 01-31-2023 08:17-0400 Systolic blood pressure 142 mm[Hg] Caesar Prado MD Work Phone: [facility] 01-02-2023 14:58-0400 Body height 167.6 cm Caesar Prado MD Work Phone: [facility] 01-02-2023 14:58-0400 Body temperature 97.3 [degF] Caesar Prado MD Work Phone: [facility] 01-02-2023 14:58-0400 Body weight 80.2 kg Caesar Prado MD Work Phone: [facility] 01-02-2023 14:58-0400 Diastolic blood pressure 58 mm[Hg] Caesar Prado MD Work Phone: [facility] 01-02-2023 14:58-0400 Heart rate 63 /min Caesar Prado MD Work Phone: [facility] 01-02-2023 14:58-0400 Respiratory rate 16 /min Caesar Prado MD Work Phone: [facility] 01-02-2023 14:58-0400 SaO2% (BldA) [Mass fraction] 97 % Caesar Prado MD Work Phone: [facility] 01-02-2023 14:58-0400 Systolic blood pressure 133 mm[Hg] Caesar Prado MD Work Phone: [facility] 12-05-2022 09:20-0500 Blood Pressure Location Jian RODRIGUEZ [facility] 12-05-2022 09:20-0500 Diastolic blood pressure 70 mm[Hg] Jian RODRIGUEZ [facility] 12-05-2022 09:20-0500 Heart rate 59 /min Jian RODRIGUEZ [facility] 12-05-2022 09:20-0500 Systolic blood pressure 146 mm[Hg] Jian RODRIGUEZ [facility] 11-26-2022 08:40-0500 Body height 167.6 cm Caesar Prado MD Work Phone: [facility] 11-26-2022 08:40-0500 Body temperature 97.7 [degF] Caesar Prado MD Work Phone: [facility] 11-26-2022 08:40-0500 Body weight 77.47 kg Caesar Prado MD Work Phone: [facility] 11-26-2022 08:40-0500 Diastolic blood pressure 63 mm[Hg] Caesar Prado MD Work Phone: [facility] 11-26-2022 08:40-0500 Heart rate 60 /min Caesar Prado MD Work Phone: [facility] 11-26-2022 08:40-0500 Respiratory rate 16 /min Caesar Prado MD Work Phone: [facility] 11-26-2022 08:40-0500 SaO2% (BldA) [Mass fraction] 97 % Caesar Prado MD Work Phone: [facility] 11-26-2022 08:40-0500 Systolic blood pressure 131 mm[Hg] Caesar Prado MD Work Phone: [facility] 09-12-2022 14:05-0500 Body height 167.6 cm Nicholas Saenz MD Work Phone: [facility] 09-12-2022 14:05-0500 Body weight 78.93 kg Nicholas Saenz MD Work Phone: [facility] 09-12-2022 14:05-0500 Diastolic blood pressure 79 mm[Hg] Nicholas Saenz MD Work Phone: [facility] 09-12-2022 14:05-0500 Heart rate 79 /min Nicholas Saenz MD Work Phone: [facility] 09-12-2022 14:05-0500 Systolic blood pressure 168 mm[Hg] Nicholas Saenz MD Work Phone: [facility] 09-12-2022 10:56-0500 Diastolic blood pressure 72 mm[Hg] Pacc 4 Work Phone: [facility] 09-12-2022 10:56-0500 Systolic blood pressure 170 mm[Hg] Pacc 4 Work Phone: [facility] 09-12-2022 10:55-0500 Body height 167.6 cm Pac 4 Work Phone: [facility] 09-12-2022 10:55-0500 Body temperature 98.29 [degF] Pacc 4 Work Phone: [facility] 09-12-2022 10:55-0500 Body weight 78.93 kg Pac 4 Work Phone: [facility] 09-12-2022 10:55-0500 Heart rate 66 /min Pac 4 Work Phone: [facility] 09-12-2022 10:55-0500 SaO2% (BldA) [Mass fraction] 96 % Pac 4 Work Phone: [facility] 03-08-2022 11:15-0400 Body weight 81.65 kg Augusto Komal Other [facility] [employer] Other 03-05-2022 12:37-0400 Body height 163.6 cm Soren Perea MD Work Phone: [facility] 03-05-2022 12:37-0400 Body temperature 97.81 [degF] Soren Perea MD Work Phone: [facility] 03-05-2022 12:37-0400 Body weight 83.01 kg Soren Perea MD Work Phone: [facility] 03-05-2022 12:37-0400 Diastolic blood pressure 61 mm[Hg] Soren Perea MD Work Phone: [facility] 03-05-2022 12:37-0400 Heart rate 56 /min Soren Perea MD Work Phone: [facility] 03-05-2022 12:37-0400 Respiratory rate 16 /min Soren Perea MD Work Phone: [facility] 03-05-2022 12:37-0400 SaO2% (BldA) [Mass fraction] 97 % Soren Perea MD Work Phone: [facility] 03-05-2022 12:37-0400 Systolic blood pressure 141 mm[Hg] oSren Perea MD Work Phone: [facility] 02-19-2022 12:37-0400 Body height 163.6 cm Corazon Alissa PA-C Work Phone: [facility] 02-19-2022 12:37-0400 Body temperature 97.59 [degF] Corazon Alissa PA-C Work Phone: [facility] 02-19-2022 12:37-0400 Body weight 82.19 kg Corazon Alissa PA-C Work Phone: [facility] 02-19-2022 12:37-0400 Diastolic blood pressure 59 mm[Hg] Corazon Alissa PA-C Work Phone: [facility] 02-19-2022 12:37-0400 Heart rate 67 /min Corazon Alissa PA-C Work Phone: [facility] 02-19-2022 12:37-0400 Respiratory rate 18 /min Corazon Alissa PA-C Work Phone: [facility] 02-19-2022 12:37-0400 SaO2% (BldA) [Mass fraction] 100 % Corazon Alissa PA-C Work Phone: [facility] 02-19-2022 12:37-0400 Systolic blood pressure 127 mm[Hg] Corazon Alissa PA-C Work Phone: [facility] 02-12-2022 12:56-0400 Body height 163.6 cm Soren Perea MD Work Phone: [facility] 02-12-2022 12:56-0400 Body temperature 97.39 [degF] Soren Perea MD Work Phone: [facility] 02-12-2022 12:56-0400 Body weight 84.46 kg Soren Perea MD Work Phone: [facility] 02-12-2022 12:56-0400 Diastolic blood pressure 62 mm[Hg] Soren Perea MD Work Phone: [facility] 02-12-2022 12:56-0400 Heart rate 52 /min Soren Perea MD Work Phone: [facility] 02-12-2022 12:56-0400 Respiratory rate 18 /min Soren Perea MD Work Phone: [facility] 02-12-2022 12:56-0400 SaO2% (BldA) [Mass fraction] 99 % Soren Perea MD Work Phone: [facility] 02-12-2022 12:56-0400 Systolic blood pressure 149 mm[Hg] Soren Perea MD Work Phone: [facility] 02-05-2022 12:40-0400 Body height 163.6 cm Soren Perea MD Work Phone: [facility] 02-05-2022 12:40-0400 Body temperature 97.59 [degF] Soren Perea MD Work Phone: [facility] 02-05-2022 12:40-0400 Body weight 84.91 kg Soren Perea MD Work Phone: [facility] 02-05-2022 12:40-0400 Diastolic blood pressure 62 mm[Hg] Soren Perea MD Work Phone: [facility] 02-05-2022 12:40-0400 Heart rate 57 /min Soren Perea MD Work Phone: [facility] 02-05-2022 12:40-0400 Respiratory rate 18 /min Soren Perea MD Work Phone: [facility] 02-05-2022 12:40-0400 SaO2% (BldA) [Mass fraction] 100 % Soren Perea MD Work Phone: [facility] 02-05-2022 12:40-0400 Systolic blood pressure 154 mm[Hg] Soren Perea MD Work Phone: [facility] 01-15-2022 12:35-0400 Body height 163.6 cm Corazon Alissa PA-C Work Phone: [facility] 01-15-2022 12:35-0400 Body temperature 98.1 [degF] Corazon Alissa PA-C Work Phone: [facility] 01-15-2022 12:35-0400 Body weight 84.28 kg Corazon Alissa PA-C Work Phone: [facility] 01-15-2022 12:35-0400 Diastolic blood pressure 63 mm[Hg] Corazon Alissa PA-C Work Phone: [facility] 01-15-2022 12:35-0400 Heart rate 63 /min Corazon Alissa PA-C Work Phone: [facility] 01-15-2022 12:35-0400 Respiratory rate 16 /min Corazon Alissa PA-C Work Phone: [facility] 01-15-2022 12:35-0400 SaO2% (BldA) [Mass fraction] 98 % Corazon Alissa PA-C Work Phone: [facility] 01-15-2022 12:35-0400 Systolic blood pressure 145 mm[Hg] Corazon Alissa PA-C Work Phone: [facility] 01-08-2022 09:09-0400 Body height 163.6 cm Soren Peera MD Work Phone: [facility] 01-08-2022 09:09-0400 Body temperature 97.11 [degF] Soren Perea MD Work Phone: [facility] 01-08-2022 09:09-0400 Body weight 83.55 kg Soren Perea MD Work Phone: [facility] 01-08-2022 09:09-0400 Diastolic blood pressure 80 mm[Hg] Soren Perea MD Work Phone: [facility] 01-08-2022 09:09-0400 Heart rate 62 /min Soren Perea MD Work Phone: [facility] 01-08-2022 09:09-0400 Respiratory rate 18 /min Soren Perea MD Work Phone: [facility] 01-08-2022 09:09-0400 SaO2% (BldA) [Mass fraction] 98 % Soren Perea MD Work Phone: [facility] 01-08-2022 09:09-0400 Systolic blood pressure 144 mm[Hg] Soren Perea MD Work Phone: [facility] Encounters Encounter Date Encounter Type Care Provider Facility Start: 11-02-2023 End: 11-03-2023 Emergency department patient visit JAIMEE Uriostegui [facility] Start: 10-10-2023 End: 10-10-2023 ambulatory [facility] Facility:[facility] Start: 10-10-2023 End: 10-10-2023 ambulatory [facility] Facility:[facility] Start: 09-19-2023 End: 09-20-2023 ambulatory Chair Gala Fam Work Phone: Hematology/Oncology Comment on above: 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); Malignant neoplasm of right kidney, except renal pelvis (HCC); Malignant neoplasm of ureter, unspecified laterality (HCC) Start: 08-29-2023 End: 09-19-2023 ambulatory [facility] Facility:[facility] Start: 08-29-2023 End: 08-29-2023 Office outpatient visit 25 minutes Caesar Prado MD Work Phone: Hematology/Oncology Comment on above: 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); Malignant neoplasm of ureter, unspecified laterality (HCC); Malaise and fatigue Start: 08-23-2023 End: 08-23-2023 ambulatory [facility] Facility:[facility] Start: 08-20-2023 ambulatory [facility] Start: 08-08-2023 End: 08-09-2023 ambulatory [facility] Facility:[facility] Start: 08-08-2023 Telephone encounter Margot galvin RN Work Phone: Hematology/Oncology Comment on above: Care Coordination (S ore Throat) Start: 07-18-2023 End: 07-19-2023 ambulatory [facility] Facility:[facility] Start: 07-18-2023 End: 07-19-2023 ambulatory Chair 13 Cristel Work Phone: Hematology/Oncology Comment on above: 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); Malignant neoplasm of right kidney, except renal pelvis (HCC); Malignant neoplasm of ureter, unspecified laterality (HCC) Start: 07-18-2023 End: 07-18-2023 Office outpatient visit 25 minutes Caesar Prado MD Work Phone: Hematology/Oncology Comment on above: 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) Start: 06-27-2023 End: 06-27-2023 ambulatory [facility] Facility:[facility] Start: 06-27-2023 End: 06-27-2023 ambulatory Chair 13 Abernathy Work Phone: Hematology/Oncology Comment on above: 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); Malignant neoplasm of right kidney, except renal pelvis (HCC); Malignant neoplasm of ureter, 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); Malaise and fatigue Start: 06-27-2023 End: 06-27-2023 Patient encounter procedure Wayne Chavez APRN.CNP Work Phone: [facility] Start: 06-18-2023 End: 06-19-2023 ambulatory YOAN SNEED Facility:[facility] Start: 06-18-2023 End: 06-18-2023 ambulatory Rita Bhatt MD Work Phone: Urology Comment on above: Urothelial cancer (H CC) (Primary Dx) Start: 06-18-2023 End: 06-18-2023 Telemedicine consultation with patient Rita Bhatt MD Work Phone: [facility] Start: 06-06-2023 End: 06-06-2023 ambulatory Chair 15 Cristel Work Phone: Hematology/Oncology Comment on above: 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); Malignant neoplasm of right kidney, except renal pelvis (HCC); Malignant neoplasm of ureter, unspecified laterality (HCC) Start: 06-06-2023 End: 06-06-2023 Office outpatient visit 25 minutes Caesar Prado MD Work Phone: Hematology/Oncology Comment on above: 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); Malignant neoplasm of ureter, unspecified laterality (HCC); Disorder of thyroid Start: 05-31-2023 End: 05-31-2023 Refill Rita Bhatt MD Work Phone: Urology Comment on above: Refill Request Start: 05-16-2023 End: 05-16-2023 ambulatory Chair 16 Cristel Work Phone: Hematology/Oncology Comment on above: 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); Malignant neoplasm of right kidney, except renal pelvis (HCC); Malignant neoplasm of ureter, unspecified laterality (HCC) Start: 05-16-2023 End: 05-16-2023 Office outpatient visit 25 minutes Caesar Prado MD Work Phone: Hematology/Oncology Comment on above: 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); Malignant neoplasm of right kidney, except renal pelvis (HCC); Malignant neoplasm of ureter, unspecified laterality (HCC) Start: 04-04-2023 End: 04-04-2023 ambulatory Wayne Chavez APRN.DIMENSION QUARRY SUPERVISOR Work Phone: Hematology/Oncology Comment on above: 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 Start: 03-19-2023 Evaluation and management of inpatient [facility] Start: 03-19-2023 Evaluation and management of inpatient MIGUEL IONA [facility] Start: 03-18-2023 Evaluation and management of inpatient MIGUEL IONA [facility] Start: 03-17-2023 Evaluation and management of inpatient CAMILO DUBOSE [facility] Start: 03-17-2023 End: 03-19-2023 Evaluation and management of inpatient PATRICIA WHITING [facility] Start: 03-15-2023 End: 03-15-2023 ambulatory JONATHAN LEIGH [facility] Start: 03-12-2023 End: 03-12-2023 ambulatory Shawn Nelson Other [facility] [employer] Other Start: 03-12-2023 Patient encounter procedure Shawn Nelson [facility] Start: 03-10-2023 End: 03-10-[address] DI OCHOA . Facility: Start: 03-07-2023 End: 03-07-2023 ambulatory YOAN M Y Facility:[facility] Start: 02-21-2023 End: 02-21-2023 ambulatory [facility] Facility:[facility] Start: 02-19-2023 End: 02-19-2023 ambulatory [facility] Facility:[facility] Start: 01-31-2023 Telephone encounter Caesar garcía MD [facility] Phone[facility] Comment on above: Return Call Request; Call pt Start: 01-31-2023 End: 01-31-2023 ambulatory YOAN M Y Facility:[facility] Start: 01-31-2023 End: 01-31-2023 ambulatory Chair Daniel Fam Work Phone: Hematology/Oncology Comment on above: 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); Malignant neoplasm of right kidney, except renal pelvis (HCC); Malignant neoplasm of ureter, unspecified laterality (HCC) Start: 01-31-2023 End: 01-31-2023 Office outpatient visit 25 minutes Caesar Prado MD Work Phone: Hematology/Oncology Comment on above: 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 Facility: Start: 01-08-2023 Telephone encounter Margot galvin RN Work Phone: Hematology/Oncology Comment on above: Care Coordination (C 1D1 Post Treatment Call) Start: 01-02-2023 End: 01-03-2023 ambulatory Gala Cristel Work Phone: Hematology/Oncology Comment on above: 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); Malignant neoplasm of right kidney, except renal pelvis (HCC); Malignant neoplasm of ureter, unspecified laterality (HCC) Start: 01-02-2023 End: 01-02-2023 Office outpatient visit 25 minutes Caesar Prado MD Work Phone: Hematology/Oncology Comment on above: 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); Malignant neoplasm of ureter, unspecified laterality (HCC) Start: 12-31-2022 End: 12-31-2022 ambulatory Margot So RN Work Phone: Hematology/Oncology Comment on above: Non-Chemotherapy Vinod atment (Pembrolizumab) Start: 12-24-2022 End: 12-24-2022 ambulatory [facility] Facility:[facility] Start: 12-19-2022 Telephone encounter Jimbo alvarado MD Work Phone: Kidney Medicine [facility] Comment on above: Patient Update Start: 12-18-2022 End: 12-19-2022 ambulatory Jian RODRIGUEZ Facility:[facility] Start: 12-17-2022 Telephone encounter Lauren Mckeon RN Work Phone: Hematology/Oncology Comment on above: Care Coordination (R eschedule appointment) Start: 12-08-2022 End: 12-08-[address] YOAN SNEED . Facility: Start: 12-05-2022 End: 12-06-2022 ambulatory Jian RODRIGUEZ Facility:[facility] Start: 12-05-2022 End: 12-05-2022 Patient encounter procedure Jian RODRIGUEZ [facility] Start: 12-03-2022 End: 12-03-2022 ambulatory [facility] Start: 11-26-2022 End: 11-26-2022 ambulatory YOAN SNEED Facility:[facility] Start: 11-26-2022 End: 11-26-2022 ambulatory Caesar Prado MD Work Phone: Hematology/Oncology Comment on above: Malignant neoplasm o f ureter, unspecified laterality (HCC) (Primary Dx) Start: 11-26-2022 End: 11-26-2022 Patient encounter procedure Caesar Prado MD Work Phone: [place] Start: 11-20-2022 End: 11-21-2022 ambulatory YOAN SNEED Facility:[facility] Start: 11-20-2022 End: 11-20-2022 ambulatory Rita Bhatt MD Work Phone: Urology Comment on above: 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 Facility:[facility] Start: 10-10-2022 End: 10-10-2022 ambulatory Shawn Nelson Other [facility] Other Start: 10-10-2022 Telephone encounter Shawn Barros [facility] Start: 09-26-2022 End: 09-27-[address] YOAN SNEED . 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, unspecified laterality (HCC) Start: 09-12-2022 End: 09-12-2022 Admission to [facility] Pacc Main 4 Work Phone: [facility] Start: 09-12-2022 End: 09-12-2022 Preprocedural examination done Pacc Main 4 Work Phone: Pre Anesthesia Start: 07-30-2022 End: 07-30-2022 ambulatory Shawn Nelson Other [facility] Other Start: 07-30-2022 Telephone encounter Shawn Barros [facility] Start: 05-04-2022 ambulatory Claire Harrison RN [facility] Start: 03-26-2022 End: 03-26-2022 ambulatory Jimmy Tejada PA-C Work Phone: Urology Comment on above: Urothelial carcinoma (HCC) (Primary Dx) Start: 03-26-2022 End: 03-26-2022 Telemedicine consultation with patient Jimmy Tejada PA-C Work Phone: [facility] Start: 03-14-2022 ambulatory Claire Harrison RN [facility] Start: 03-13-2022 End: 03-13-2022 ambulatory Rita Bhatt MD Work Phone: Urology Comment on above: 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, unspecified laterality (HCC) (Primary Dx); Acute cystitis without hematuria Start: 03-13-2022 End: 03-13-2022 Telemedicine consultation with patient Rita Bhatt MD Work Phone: [facility] Start: 03-08-2022 End: 03-08-2022 ambulatory Augusto Sauceda Other [facility] Other Start: 03-08-2022 Office outpatient vi sit 25 minutes Augusto Sauceda [facility] Gastroenter[facility] Start: 03-05-2022 End: 03-05-2022 ambulatory Soren Perea MD Work Phone: Hematology/Oncology Comment on above: Malignant neoplasm o f ureter, unspecified laterality (HCC) (Primary Dx) Start: 03-05-2022 End: 03-05-2022 Patient encounter procedure Soren Perea MD Work Phone: [facility] Start: 02-19-2022 End: 02-19-2022 ambulatory Corazon MCLAUGHLIN-C Work Phone: Hematology/Oncology Comment on above: Malignant neoplasm o f ureter, unspecified laterality (HCC) (Primary Dx) Start: 02-19-2022 End: 02-19-2022 Patient encounter procedure Corazno MCLAUGHLIN-C Work Phone: [facility] Start: 02-12-2022 End: 02-12-2022 ambulatory Soren Perea MD Work Phone: Hematology/Oncology Comment on above: Malignant neoplasm o f ureter, unspecified laterality (HCC) (Primary Dx) Start: 02-12-2022 End: 02-12-2022 Patient encounter procedure Soren Perea MD Work Phone: [facility] Start: 02-05-2022 End: 02-05-2022 ambulatory Soren Perea MD Work Phone: Hematology/Oncology Comment on above: Malignant neoplasm o f ureter, unspecified laterality (HCC) (Primary Dx) Start: 02-05-2022 End: 02-05-2022 Patient encounter procedure Soren Perea MD Work Phone: [facility] Start: 01-22-2022 End: 01-22-2022 ambulatory Chair 12 Cristel Work Phone: Hematology/Oncology Comment on above: Malignant neoplasm o f ureter, unspecified laterality (HCC) (Primary Dx) Start: 01-15-2022 End: 01-15-2022 ambulatory Corazon JEFFRIES2NGageU Work Phone: Hematology/Oncology Comment on above: Malignant neoplasm o f ureter, unspecified laterality (HCC) (Primary Dx) Start: 01-15-2022 End: 01-15-2022 Patient encounter procedure Corazon JEFFRIESC Work Phone: [facility] Start: 01-08-2022 End: 01-08-2022 ambulatory Soren Perea MD Work Phone: Hematology/Oncology Comment on above: Malignant neoplasm o f ureter, unspecified laterality (HCC) (Primary Dx) Start: 01-08-2022 End: 01-08-2022 Patient encounter procedure Soren Perea MD Work Phone: [facility] Start: 07-08-2020 End: 07-08-2020 Subsequent hospital visit by physician [facility] Aixa Work Phone: Radiology Comment on above: 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, unspecified laterality (HCC) [C64.9] Start: 04-29-2018 End: 04-30-2018 Patient encounter DEFAULT PHYSICIAN Facility:[facility] Start: 04-21-2018 End: 04-22-2018 Patient encounter DEFAULT PHYSICIAN Facility:[facility] Procedures Date Procedure Procedure Detail Performing Clinician Start: 09-26-[address] EDEN OCHOA . Comment on above: Performed By: #### I LASHAE, PSASC, VITAD #### [facility] [address] [address] [address] Tan Oliveros Start: 09-12-2022 Urnls dip stick/tabl et reagent auto microscopy Bulk Order Provider Start: 03-16-2022 Antibody screen Rita Bhatt MD Work Phone: Start: 03-16-2022 Culture bacterial qu anttative colony count urine Rita Bhatt MD Work Phone: Start: 07-08-2020 Ct abdomen & pelvis w/o contrst 1/> body re Rita Bhatt MD Work Phone: Start: 07-23-2019 Cystoscopic removal of ureteric stent Jian RODRIGUEZ Start: 07-02-2019 Kidney biopsy Jian BUSTILLO Comment on above: Right ureteroscopy, Right renal Wash for cytology, holmium laser of right renal tumor, Right stent placement Start: 03-05-2019 Instillation of eva mycin C into bladder Jian RODRIGUEZ Comment on above: 03/05/2019 , 9 Start: 02-05-2019 Transurethral resect ion of bladder neoplasm Jian RODRIGUEZ Start: 07-03-2018 Nephroureterectomy Ely RODRIGUEZ Comment on above: left side Start: 05-15-2018 Biopsy of bladder Samir RODRIGUEZ Comment on above: 05/15/2018 * Cysto, bl adder bx, fulguration, left ureteral dilation, left ureteroscopy, ureteral biopsy, left pyeloscopy, right ureteroscopy, left stent placement with clot evacuation. 04/05/2016* cystoscopy, bilateral rg, bladder biopsy, fulguration. Start: 05-10-2016 Pyeloscopy Jianrashida AWAD Comment on above: 05/10/2016 * Cysto, r igid ureteral dilation, ureteroscopy, pyeloscopy, basket extraction of renal stone, left stent placement Start: 01-10-2012 Kidney biopsy Jian BUSTILLO Comment on above: 01/10/2012 * Cysto, l eft stent change, ureteroscopy, renal biopsy x 3 Start: 09-18-2010 Instillation of BCG into the bladder Jian RODRIGUEZ Comment on above: BCG # 6 09/18/10 BCG #3 02/18/2012 BCG #3 12/09/2012 BCG #2 12/16/2017 Start: 08-30-2010 Removal of stent Getachew RODRIGUEZ Comment on above: left side, 0, 05/29/2016 Start: 08-10-2010 Cystoscopy and trans urethral resection of bladder tumor Jian RODRIGUEZ Comment on above: 08/10/2010 * Cysto, TURBT/TURP/left ureteroscopy, left stent placement Start: 07-15-2010 Cystoscopy Jian AWAD Comment on above: 07/21/2010, 11/20/2010, 02/19/2011, 05/29/2011, 09/11/2011, 11/27/2011, 04/25/2012, 08/04/2012, 10/21/2012, 07/20/2013, 01/18/2014, 11/23/2014, 12/05/2015, 11/27/2016, 06/04/2017, 11/19/2017, 03/11/2018, 09/23/2018, 12/31/2017 Decompression of median nerve Jian RODRIGUEZ Dilation of urethra Jian RODRIGUEZ Comment on above: 12/09/2012 * cysto/UD with pelaez sounds Hernia repair Jian RODRIGUEZ Lumbar spinal fusion Jian RODRIGUEZ Transurethral prostatectomy Jian RODRIGUEZ Comment on above: 08/10/2010 * turp 12/27/2011 * cystoscopy, trev rg, ureteroscopy, bladder bx, TURP and left stent placement Plan of Treatment Date Care Activity Detail Author Start: 02-27-2032 Urine microalbumin profile [facility] Start: 09-19-2026 Diabetes Screening Diabetes Screenin g [facility] Start: 08-29-2026 Diabetes Screening Diabetes Screenin g [facility] Start: 08-08-2026 Diabetes Screening Diabetes Screenin g [facility] Start: 07-18-2026 Diabetes Screening Diabetes Screenin g [facility] Start: 06-27-2026 Diabetes Screening Diabetes Screenin g [facility] Start: 06-06-2026 DIABETES SCREEN [facility]ET[facility]CREEN [facility] Start: 05-16-2026 DIABETES SCREEN DIABETES SCREEN [facility] Start: 04-25-2026 DIABETES SCREEN DIABETES SCREEN [facility] Start: 04-04-2026 DIABETES SCREEN DIABETES SCREEN [facility] Start: 01-23-2026 DIABETES SCREEN DIABETES SCREEN [facility] Start: 12-31-2025 DIABETES SCREEN DIABETES SCREEN [facility] Start: 11-19-2025 DIABETES SCREEN DIABETES SCREEN [facility] Start: 09-12-2025 DIABETES SCREEN DIABETES SCREEN [facility] Start: 03-16-2025 DIABETES SCREEN DIABETES SCREEN [facility] Start: 03-05-2025 DIABETES SCREEN DIABETES SCREEN [facility] Start: 02-19-2025 DIABETES SCREEN DIABETES SCREEN [facility] Start: 02-12-2025 DIABETES SCREEN DIABETES SCREEN [facility] Start: 02-05-2025 DIABETES SCREEN DIABETES SCREEN [facility] Start: 01-22-2025 DIABETES SCREEN DIABETES SCREEN [facility] Start: 01-15-2025 DIABETES SCREEN DIABETES SCREEN [facility] Start: 01-08-2025 DIABETES SCREEN DIABETES SCREEN [facility] Start: 10-07-2023 Shingrix Vaccine (2 of 2) Banks grix Vaccine (2 of 2) [facility] Start: 08-22-2023 End: 08-16-2024 Ct abdomen & pelvis w/contrast material CT ABD/PEL W IVCON Radiology Routine Malignant 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) Expected: 08/22/2023 (Approximate), Expires: 08/16/2024 [facility] Work Phone: Comment on above: Expected: 08/22/2023 (Approximate), Expires: 08/16/2024 Start: 08-22-2023 End: 08-16-2024 CT CHEST W IVCON CT CHEST W IVCON Radiology Routine Malignant 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) Expected: 08/22/2023 (Approximate), Expires: 08/16/2024 [facility] Work Phone: Comment on above: Expected: 08/22/2023 (Approximate), Expires: 08/16/2024 Start: 07-19-2023 End: 09-18-2023 CBC W Auto Differential panel - Blood CBC + DIFF Lab Routine Malignant 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) Malaise and fatigue Expected: 07/19/2023, Expires: 09/18/2023 [facility] Work Phone: Comment on above: Expected: 07/19/2023 , Expires: 09/18/2023 Start: 07-19-2023 End: 09-18-2023 Comprehensive metabolic 2000 panel - Serum or Plasma COMP METABOLIC PANEL Lab Routine Malignant 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) Malaise and fatigue Expected: 07/19/2023, Expires: 09/18/2023 [facility] Work Phone: Comment on above: Expected: 07/19/2023 , Expires: 09/18/2023 Start: 07-19-2023 End: 09-18-2023 Thyrotropin [Units/volume] in Serum or Plasma TSH BLD Lab Routine Malignant 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) Malaise and fatigue Expected: 07/19/2023, Expires: 09/18/2023 [facility] Work Phone: Comment on above: Expected: 07/19/2023 , Expires: 09/18/2023 Start: 06-14-2023 Covid-19 Vaccine () Covid-19 Vaccine () [facility] Start: 06-14-2023 Influenza vaccination [facility] Start: 04-25-2023 End: 06-25-2023 Thyroxine (T4) free [Mass/volume] in Serum or Plasma [facility] Work Phone: Comment on above: Expected: 04/25/2023 , Expires: 06/25/2023 Start: 04-25-2023 End: 06-25-2023 Triiodothyronine (T3) [Mass/volume] in Serum or Plasma [facility] Work Phone: Comment on above: Expected: 04/25/2023 , Expires: 06/25/2023 Start: 12-19-2022 End: 02-18-2023 Renal function 2000 panel - Serum or Plasma RENAL FUNCTION PANEL Lab Routine CELSO (acute kidney injury) ([facility]) Expected: 12/19/2022, Expires: 02/18/2023 [facility] Work Phone: Comment on above: Expected: 12/19/2022 , Expires: 02/18/2023 Start: 10-14-2022 ADVANCE DIRECTIVE DISCUSSION ADVANCE DIRECTIVE DISCUSSION [facility] Start: 10-14-2022 DEPRESSION ASSESSMENT DEPRESSION ASS ESSMENT [facility] Start: 06-14-2022 Influenza vaccination [facility] Start: 03-13-2022 End: 03-13-2023 ECG COMPLETE ECG COMPLETE ECG Routine 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, unspecified laterality (HCC) Expected: 03/13/2022, Expires: 03/13/2023 [facility] Work Phone: Comment on above: Expected: 03/13/2022 , Expires: 03/13/2023 Start: 02-19-2022 End: 04-21-2022 CBC W Auto Differential panel - Blood CBC + DIFF Lab Routine Malignant neoplasm of ureter, unspecified laterality (HCC) Expected: 02/19/2022, Expires: 04/21/2022 [facility] Work Phone: Comment on above: Expected: 02/19/2022 , Expires: 04/21/2022 Start: 02-19-2022 End: 04-21-2022 Comprehensive metabolic 2000 panel - Serum or Plasma COMP METABOLIC PANEL Lab Routine Malignant neoplasm of ureter, unspecified laterality (HCC) Expected: 02/19/2022, Expires: 04/21/2022 [facility] Work Phone: Comment on above: Expected: 02/19/2022 , Expires: 04/21/2022 Start: 01-22-2022 End: 03-24-2022 CBC W Auto Differential panel - Blood CBC + DIFF Lab Routine Malignant neoplasm of ureter, unspecified laterality (HCC) Expected: 01/22/2022, Expires: 03/24/2022 [facility] Work Phone: Comment on above: Expected: 01/22/2022 , Expires: 03/24/2022 Start: 01-22-2022 End: 03-24-2022 Comprehensive metabolic 2000 panel - Serum or Plasma COMP METABOLIC PANEL Lab Routine Malignant neoplasm of ureter, unspecified laterality (HCC) Expected: 01/22/2022, Expires: 03/24/2022 [facility] Work Phone: Comment on above: Expected: 01/22/2022 , Expires: 03/24/2022 Start: 12-14-2021 COVID-19 VACCINE (4 - Booster for Pfizer series) COVID-19 VACCINE (4 - Booster for Pfizer series) [facility] Start: 11-10-2021 COVID-19 VACCINE (4 - Booster for Pfizer series) COVID-19 VACCINE (4 - Booster for Pfizer series) [facility] Start: 11-10-2021 COVID-19 VACCINE (6 - Pfizer series) COVID-19 VACCINE (6 - Pfizer series) [facility] Start: 10-14-2021 ADVANCE DIRECTIVE DISCUSSION ADVANCE DIRECTIVE DISCUSSION [facility] Start: 10-14-2021 DEPRESSION ASSESSMENT DEPRESSION ASS ESSMENT [facility] Start: 06-14-2021 Influenza vaccination INFLUENZA (#1) [facility] Start: 02-13-2018 PNEUMOCOCCAL: 65+ (3 - PPSV23 or PCV20) PNEUMOCOCCAL: 65+ (3 - PPSV23 or PCV20) [facility] Start: 01-16-2013 Urine microalbumin profile DTAP,TDAP ,TD (1 - Tdap) [facility] Start: 1999 Hepatitis B Vaccine (1 of 3 - Risk 3-dose series) Hepatitis B Vaccine (1 of 3 - Risk 3-dose series) [facility] Start: 1999 RSV Vaccine (1 - 1-d ose 60+ series) RSV Vaccine (1 - 1-dose 60+ series) [facility] Start: 1989 SHINGRIX VACCINE (1 of 2) BANKS GRIX VACCINE (1 of 2) [facility] Start: 1958 Hepatitis A Vaccine (1 of 2 - Risk 2-dose series) Hepatitis A Vaccine (1 of 2 - Risk 2-dose series) [facility] Start: 1958 SHINGRIX VACCINE (1 of 2) BANKS GRIX VACCINE (1 of 2) [facility] Start: 1957 MMR Vaccine (1 of 2 - Risk 2-dose series) MMR Vaccine (1 of 2 - Risk 2-dose series) [facility] Start: 1949 Meningococcal B Vacc ine: Consider Based On Risk (1 of 4 - Increased Risk) Meningococcal B Vaccine: Consider Based On Risk (1 of 4 - Increased Risk) [facility] End: 06-14-2024 Ct abdomen & pelvis w/contrast material CT ABD/PEL W IVCON Radiology Routine Malignant 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) 1 Occurrences starting 05/16/2023 until 06/14/2024 [facility] Work Phone: Comment on above: 1 Occurrences starti ng 05/16/2023 until 06/14/2024 End: 06-14-2024 CT CHEST W IVCON CT CHEST W IVCON Radiology Routine Malignant 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) 1 Occurrences starting 05/16/2023 until 06/14/2024 [facility] Work Phone: Comment on above: 1 Occurrences starti ng 05/16/2023 until 06/14/2024 ECG COMPLETE ECG COMPLETE ECG Routine Pre-op evaluation 09/12/2022 11:47 AM [facility] Work Phone: REFERRAL FOR ADDITIO NAL BIOMARKER AND MOLECULAR TESTING REFERRAL FOR ADDITIONAL BIOMARKER AND MOLECULAR TESTING Lab Routine Malignant neoplasm of ureter, unspecified laterality (HCC) 12/03/2022 9:12 AM [facility] Work Phone[facility] Immunizations Immunization Date Immunization Notes Care Provider Laurence rockwell 08-12-2023 zoster vaccine recombinant Chair Fam Work Phone: [facility] 02-26-2022 diphtheria, tetanus toxoids and pertussis vaccine Chair Fam Work Phone: [facility] 09-15-2021 SARS-CoV-2 (COVID-19 ) mRNA BNT-162b2 vax Jian RODRIGUEZ [facility] 11-26-2020 SARS-CoV-2 (COVID-19 ) mRNA BNT-162b2 vax Jian RODRIGUEZ [facility] 11-05-2020 SARS-CoV-2 (COVID-19 ) mRNA BNT-162b2 vax Jian RODRIGUEZ [facility] 08-09-2015 influenza nasal, unspecified formulation Chair Fam Work Phone: [facility] 08-09-2015 influenza virus vacc ine, unspecified formulation Jian RODRIGUEZ [facility] 08-09-2015 influenza, intraderm al, quadrivalent, preservative free, injectable Soren Perea MD Work Phone: [facility] 01-07-2015 pneumococcal conjuga te vaccine, 13 valent Soren Perea MD Work Phone: [facility] 02-13-2013 pneumococcal polysaccharide vaccine, 23 valent Soren Perea MD Work Phone: [facility] 01-15-2013 tetanus and diphther ia toxoids, adsorbed, preservative free, for adult use (2 Lf of tetanus toxoid and 2 Lf of diphtheria toxoid) Jian RODRIGUEZ [facility] 01-15-2013 tetanus and diphther ia toxoids, adsorbed, preservative free, for adult use (5 Lf of tetanus toxoid and 2 Lf of diphtheria toxoid) Soren Perea MD Work Phone: [facility] Payers Date Payer Category Payer Private Health Insurance [facility] A[employer] SUPPLEMENT [id number] 2021-Present [phone] [address] [place] [address] Indemnity [id number] 2019 Medicare [id number] 2017 Private Health Insurance xxx [id number] 2005 Medicare MEDICARE MEDICAR E A AND B [id number] 2005-Present [phone] [place] [address] Medicare [id number] 2005 Medicare MEDICARE MEDICAR E A AND B [id number] 2005-Present [phone] [place] [address] Medicare [id number] 1959 Medicare [id number] 1959 Medicare [id number] 1959 Unknown [id number] 1939 Unknown [id number] 1939 Unknown [id number] 1939 Unknown [id number] 1939 Unknown [id number] 1940 Unknown [id number] 1940 Unknown [id number] 1940 Unknown [id number] 1940 Unknown [id number] 1940 Unknown [id number] Unknown Unknown [id number] Social History Date Type Detail Facility Start: 07-14-2018 End: 11-26-2022 Tobacco smoking status NHIS Ex-smoker [facility] Comment on above: patient quit smoking over 30 years ago End: 10-14-1970 History of tobacco use Current smoker [facility] End: 10-14-1970 History of tobacco use Cigarette Smoker [facility] Start: 07-14-2018 End: 02-19-2023 Cigarettes smoked current (pack per day) - Reported 1 [facility] Start: 07-14-2018 End: 11-26-2022 Tobacco use and exposure Smokeless tobacco non-user [facility] Start: 01-08-2022 End: 09-19-2023 Alcohol intake Current non-drinker of alcohol (finding) [facility] Start: 1940 Sex Assigned At Male [facility] Start: 12-29-2021 End: 09-12-2022 Exposure to SARS-CoV-2 (event) Not sure [facility] Start: 02-19-2023 End: 03-07-2023 Sex Assigned At [facility] History of tobacco use Passive smoker [facility] Tobacco smoking status Never [facility] Comment on above: patient quit smoking over 30 years ago Start: 09-28-2019 Gender identity Identifies as male gender (finding) [facility] Start: 09-28-2019 Sexual orientation Heterosexual (nestor steele) [facility] Medical Equipment Procedure Code Equipment Code Equipment Origin al Text Equipment Identifier Dates Inlay [place] Ureteral Stent Kit 7f X 26cm [id number] Start: 10-29-2019 Stent Inlay Opti ma 7fr Taper [place] Green Polymer Phreecoat 24cm Ureteral - [id number] Start: 08-12-2019 Stent Inlay Opti ma 7fr Taper [place] Green Polymer Phreecoat 26cm Ureteral - [id number] Start: 09-30-2019 Stent Nicore Inl ay [place] 7fr Taper [place] Green Nitinol Polymer 24cm - [id number] Start: 10-26-2021 Stent Inlay Opti ma 6fr Taper [place] Green Polymer Phreecoat 24cm Ureteral - [id number] Start: 11-12-2022 Functional Status Date Assessment Result Facility 12-05-2022 Functional Status N/A [facility] Clinical Notes 07-08-2020 to 10-10-2023 Caesar Prado MD - 08/29/2023 1:30 PM ESTPatient InstructionsTelephone Encounter - Margot So RN - 08/08/2023 11:55 AM EDTPatient InstructionsAbCaesar palacio MD - 07/18/2023 1:30 PM EDT Note Date & Type Note Facility 10-10-2023 Note [facility] 09-19-2023 Note [facility] 08-29-2023 Note [facility] 08-29-2023 History of Present illness Narrative Images from the original note were not included. NAME: Juan Jose Austin [facility] NO.: [id number] DATE OF SERVICE: August 29, 2023 (Eve) Some elements in this clinic note that are critical to medical decision making have been carefully reviewed and included from a prior clinic note dated: July 18, 2023 (Eve). Referring Provider: Rita Bhatt Additional Clinicians involved in Juan Jose Austin's care: Dr. Yoan Sneed (PCP), Dr. Rita Bhatt, Dr. Jian Rodriguez DIAGNOSIS: Upper urothelial tract carcinoma ASSESSMENT: 83 year old male with right solitary kidney and recurrent tract urothelial carcinoma Patient was diagnosed with a left-sided upper tract urothelial carcinoma for which he underwent a left nephroureterectomy in 2018. At that point, he was evaluated by medical oncology and given the option of doing adjuvant cisplatin-based chemotherapy. Patient had declined this option at that time. 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 Most recently, based on CT urogram done in September 2021, cytology and ureteroscopy he had local recurrence of a noninvasive papillary high-grade urothelial carcinoma, for which he underwent endoscopic ablation that was incomplete in October 2021. Given his unique situation and in order to avoid nephroureterectomy, we proceeded with a trial of gemcitabine and carboplatin (patient is not a cisplatin candidate given low EF and CKD). Patient has completed 4 cycles of gemcitabine and carboplatin. Side effects included grade 2 myelosuppression needing dose reduction and grade 2 CINV and diarrhea. After last infusion, he had a spell of dizziness resulting in a fall and head injury. we have discussed to hold off on any further chemotherapy at this time. With recent dose reduction and delays, we do not think the benefits of additional chemotherapy would justify the risks. He was started on maintenance immunotherapy with pembrolizumab on 01/02/2023. He had episodes of shortness of breath which we ruled out pneumonitis. Shortness of breath and syncopal episodes were found to be cardiac related and a pacemaker was placed on 03/18/2023. Unfortunately he has persisting disease. NGS. Was unrevealing. No evidence of pneumonitis on imaging. 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 Then decrease to 30 mg daily for 1 week and then decrease to 20 mg the next week. RTC in 3 weeks with Wayne to review toxicity and consider dropping steroids further. Once he is below 10 mg Prednisone we can restart his Keytruda. HPI: CASE HISTORY: Reverse Chronological Order 08/23/2023 - CT CAP - 1. No evidence of intrathoracic metastases. 2. New 1.6 cm right thyroid nodule. 3. More conspicuous indeterminate 2.7 x 1.0 cm hypodensity in left frontal lobe adjacent to the falciform ligament. Differential diagnosis includes area of focal fatty infiltration, perfusion anomaly and other focal hepatic abnormality. Consider continued interval follow-up or further evaluation via MRI. 05/31/2023 - CT CAP - negative. 03/18/2023 - Permanent pacemaker placed 03/07/2023 - Pembrolizumab resumed with duration changed to every 4 weeks 01/23/2023 - progressive dyspnea held Pembro and started on 5 days of steroids.resolved and resumed treatment 01/02/2023 - started pembrolizumab - plan for 2 years 11/27/2021 - started carboplatin AUC 5 and gemcitabine 1000 mg/m2 day 1 and 8; dose reduced by 20% for grade 2 anemia for cycle 4 10/26/2021 - endoscopic ablation renal pelvis mass biopsy consistent with high grade papillary urothelial carcinoma. No invasion noted. Tumor was not able to be completely resected. Procedure complicated by postoperative CELSO Recommendations to proceed with trial of chemotherapy per tumor board with the goal of shrinking the tumor to allow for endoscopic procedure 09/26/2021 - CT urogram noted with a nodular soft tissue centered at the right renal pelvis. Urine cytology positive for high grade urothelial carcinoma 11/07/2019 - Right antegrade ureteroscopy and laser ablation of right papillary ureteral upper tract urothelial carcinoma, ~ 2cm 09/30/2019 - Cystourethroscopy with a low-grade appearing papillary tumor in the right lower pole. Biopsies not possible. Right ureteral washings noted with atypical cells 08/12/2019 - Cystourethroscopy was notable for a papillary and sessile tumor in the right lower pole and right renal pelvis. Tumor ablated with laser. Right ureteral washings with atypical cells. One dose of mitomycin administered. 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 Right renal washings positive for high grade urothelial carcinoma 07/03/2018 - left nephroureterectomy, pathology 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 Glen [facility] and chemotherapy declined 05/15/2018 - Cystoscopy with biopsies consistent with high grade papillary urothelial carcinoma of the left ureter; no muscle in the report to assess for invasion 03/03/2018 - urine cytology consistent with high grade urothelial carcinoma; UroVysion FISH was positive for aneuploidy in 64 cells and del 9p21 in 8 cells 05/10/2016 - left kidney and bladder wall biopsies with chronic inflammation 04/05/2016 - urine and renal washing cytology notable for atypical cells 01/10/2012 - left kidney biopsies and renal washings without evidence of malignancy 12/05/2011 - bladder washings with rare atypical cells 08/10/2010 - TURBT and transurethral prostate resection notable for transitional cell carcinoma in situ Updated Visit, August 29, 2023: Lost 11 lbs but still feels good just can't taste anything and throat is really dry. Not sure what exactly is causing this but will give a trial steroids and consider immune mediated effect. 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 CT with no clear evidence of recurrence. Updated Visit, July 18, 2023: Dr. Sneed checked his thyroid out and it is doing well. Continues tolerating Pembro really well. Daughter lives nearby has dementia. Updated Visit, June 27, 2023: Juan Jose Austin returns for follow-up and continued treatment with pembrolizumab. He remains on pembrolizumab every 3 weeks and is tolerating it well. He states that he develops skin sores that are red and then turn white. He believes the skin sores are from treatment. He denies nausea, vomiting, diarrhea and abdominal pain. He denies cough, shortness of breath and other pulmonary complaints. No headache or vision changes. No fevers, chills and night sweats or signs/symptoms of infection. No bleeding or abnormal bruising. 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 Overall, he is doing well and wishes to proceed with treatment as planned. Updated Visit, June 06, 2023: Doing well. Scans clear - new 5mm lesion on liver likely non-malignant - cannot have MRI due to pacer. Otherwise doing well. Mouth is better with lemon drops. His Ivone is with him today after spending 3 months in SNF. Updated Visit, May 16, 2023: Continues to do well since having his pacer placed. Needs scans. Will obtain and continue treatment in meanwhile. Labs safe to proceed - no change in kidney function. Mouth gets really dry - drinks almost 80 oz. Updated Visit, April 25, 2023: Juan Jose Austin returns for follow-up and pembrolizumab. He is tolerating the pembrolizumab well. His breathing is better since the pacemaker was placed. He denies cough, shortness of breath and other pulmonary complaints. No skin rashes. No nausea, vomiting, diarrhea or other GI complaints. He denies headaches and blurred vision. He complains of dry mouth. Otherwise no other complaints. He denies fevers, chills, night sweats and signs/symptoms of an section. No bleeding or abnormal bruising. He wishes to proceed with treatment as planned. Updated Visit, April 04, 2023: Juan Jose Austin returns for follow-up. Since his last visit he had a pacemaker placed due to syncopal episodes. The pacemaker was inserted on on 03/18/2023 at [facility] with Dr. Bautista. His shortness of breath and dizziness has resolved since the pacemaker was placed. Overall, he is doing well today. He currently denies cough and shortness of breath. No diarrhea, abdominal pain or other GI complaints. No skin rashes. He recently has noticed an increase in dry mouth. Otherwise, he denies any side effects from treatment. For the most part his urine is clear except for an occasional speck of blood. He wishes to proceed with treatment as planned. Updated Visit, March 07, 2023: Juan Jose returns and is doing better - hard to tell what his baseline is, but I don't think this is immune mediated pneumonitis. Will try treating him every 4 weeks. Instead of every 3. He will call in with his symptoms weekly. Updated Visit, February 21, 2023: Juan Jose continues to have some degree of dyspnea. I am still concerned that he may have pneumonitis due to immune therapy versus underlying dyspnea from chronic lung disease. Updated Visit, January 31, 2023: Dyspnea resolved - CT shows resolution of bibasilar pleural effusions. Doing well and will continue treatment. Updated Visit, January 23, 2023: Juan Jose Austin returns for follow-up and treatment. He received cycle 1 pembrolizumab on 01/02/2023. He states that shortly after treatment he developed shortness of breath with exertion. He is still experiencing shortness of breath. He has intermittent lightheadedness when he takes his blood pressure medication which lasts for 5 to 6 minutes. He denies any diarrhea. His urine is clear. He denies fevers, chills and signs/symptoms of infection. No bleeding or abnormal bruising. Updated Visit, January 02, 2023: Juan Jose returns today to start treatment with Keytruda. He is doing well and has considered other options being close to him because of his age and resulting anuria. He is safe to proceed. Consent was obtained. Education completed risks and benefits were reviewed with him. Expected adverse events were also reviewed. Updated Visit, December 24, 2022: Spoke with Juan Jose and with daughter Britt - they could see me but their video feed was down. Given his comorbidities he is a poor candidate for chemotherapy, pokagon based or otherwise. Surgery would yield him to be anuric and anephric committing him to lifelong dialysis which would not be desirable. Therefore will employ PD-L1 nhibitor for primary treatment. He is agreeable. NGS was unrevealing Updated Visit, November 26, 2022: Here with Daughter Britt Has persisting disease Concerned that he has need for systemic therapy No invasive disease is noted right now - however he is not a good candidate to leave anephric and require dialysis or transplant given his age No pain. Call in 2 weeks Denies any fevers, chills, cough or shortness of breath. REVIEW OF SYSTEMS Per HPI and otherwise negative by full review of organ systems. ECOG PERFORMANCE STATUS: 0 PHYSICAL EXAMINATION: Vitals: BP 124/58 Pulse 60 Temp (Src) 97.5 (Temporal) Resp 18 Ht 5' 4.016 (1.63m) Wt 167 lb (75.8kg) SpO2 97% BMI 28.65 kg/(m^2). Body surface area is 1.85 meters squared. Exam limited to gross visualization where appropriate. Gen.: This is an age-appropriate patient in no acute distress. Head: Appears atraumatic with no visible lesions. Eyes: Pupils equally round and reactive to light, extraocular muscles are intact. Neck: Supple. Respiratory: Appears to be respiring comfortably. Neurologic: Nonfocal to gross visualization. Alert and oriented 3. Psychiatric: No evidence of inappropriate anxiety or depression. Skin: Visible areas of skin without rash, lesions, wounds or petechiae. ALLERGIES: ALLERGIES Allergen Reactions Tape [Adhesive Tape* Other: See Comments Severe blisters MEDICATIONS: pantoprazole DR (PROTONIX) 40 mg tablet isosorbide dinitrate (ISORDIL) 20 mg tablet levothyroxine (SYNTHROID) 25 mcg tablet 1 tablet in the morning on an empty stomach Orally Once a day for 30 days tamsulosin (FLOMAX) 0.4 mg Take 1 capsule by mouth once daily. ferrous sulfate 325 mg (65 mg iron) tablet Take 325 mg by mouth. pembrolizumab (KEYTRUDA) 25 mg/mL injection Inject intravenously. losartan (COZAAR) 50 mg tablet Take 50 mg by mouth. potassium chloride (K-TAB) 10 mEq tablet Take 10 mEq by mouth twice daily. isosorbide mononitrate ER (IMDUR) 30 mg 24 hr tablet Take 30 mg by mouth once daily. metoprolol succinate ER (TOPROL XL) 25 mg 24 hr tablet Take 25 mg by mouth once daily. amLODIPine (NORVASC) 10 mg tablet Take 10 mg by mouth once daily. hydrALAZINE (APRESOLINE) 50 mg tablet Take 50 mg by mouth three times daily. furosemide (LASIX) 20 mg tablet Take 20 mg by mouth once daily. aspirin, enteric coated (ASPIRIN, ENTERIC COATED) 81 mg EC tablet Take 81 mg by mouth once daily. Glucosamine-Chondroitin 500-400 mg tablet Take 1 tablet by mouth once daily. folic acid/multivit-min/lutein (CENTRUM SILVER ORAL) Take 1 tablet by mouth once daily. balsalazide (COLAZAL) 750 mg capsule Take 1,500 mg by mouth once daily. atorvastatin (LIPITOR) 10 mg tablet Take 10 mg by mouth once daily. predniSONE (DELTASONE) 10 mg tablet Take 4 tablets by mouth once daily. iv contrast (will be provided with radiology test) CT Chest ABD/PEL-Inject, intravenously, once for 1 dose.No IV access, insert saline lock prior to the beginning of sedation, infusion, injection of imaging exam. Discontinue saline lock post exam. If Pt. has a central line or IVAD, may access for administration according to line specific nursing protocol. Once exam is complete flush line and de-access according to line specific nursing protocol in the CT contrast administration guidelines link. omeprazole (PRILOSEC) 20 mg capsule Take 1 capsule by mouth twice daily. LABORATORY VALUES: WBC (k/uL) Date Value 08/29/2023 6.70 RBC (m/uL) Date Value 08/29/2023 4.86 Hemoglobin (g/dL) Date Value 08/29/2023 13.6 Hematocrit (%) Date Value 08/29/2023 40.9 MCV (fL) Date Value 08/29/2023 84.2 MCH (pg) Date Value 08/29/2023 28.0 MCHC (g/dL) Date Value 08/29/2023 33.3 RDW-CV (%) Date Value 08/29/2023 13.8 Platelet Count (k/uL) Date Value 08/29/2023 224 MPV (fL) Date Value 08/29/2023 9.1 Glucose (mg/dL) Date Value 08/29/2023 116 (H) BUN (mg/dL) Date Value 08/29/2023 23 Creatinine (mg/dL) Date Value 08/29/2023 2.02 (H) Sodium (mmol/L) Date Value 08/29/2023 137 Potassium (mmol/L) Date Value 08/29/2023 4.1 Chloride (mmol/L) Date Value 08/29/2023 102 CO2 (mmol/L) Date Value 08/29/2023 28 Protein, Total (g/dL) Date Value 08/29/2023 6.1 (L) Albumin (g/dL) Date Value 08/29/2023 4.2 Calcium, Total (mg/dL) Date Value 08/29/2023 9.6 Alkaline Phosphatase (U/L) Date Value 08/29/2023 79 Bilirubin, Total (mg/dL) Date Value 08/29/2023 0.8 AST (U/L) Date Value 08/29/2023 28 ALT (U/L) Date Value 08/29/2023 17 DIAGNOSIS: (C67.8) Malignant 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) (primary encounter diagnosis) (C66.9) Malignant neoplasm of ureter, unspecified laterality (HCC) (R53.81, R53.83) Malaise and fatigue PAST MEDICAL HISTORY Diagnosis Date Bladder cancer (HCC) Cancer (HCC) Incasive Ureteral Cancer Hematuria Hypertension Nephrolithiasis PAST SURGICAL HISTORY Procedure Laterality Date BACK SURGERY HX CARPAL TUNNEL HERNIA REPAIR HX PAST SURGICAL HISTORY OF Left 06/2018 Nephroureterectomy Social History Tobacco Use Smoking status: Former Packs/day: 1.00 Years: 30.00 Additional pack years: 0.00 Total pack years: 30.00 Types: Cigarettes Quit date: 1970 Years since quittin.9 Passive exposure: Past Smokeless tobacco: Never Vaping Use Vaping Use: Never used Substance Use Topics Alcohol use: No Drug use: No FAMILY HISTORY Problem Relation Age of Onset Asthma Mother other (htn) Mother Asthma Sister Anesthesia Problems No Family History I spent a total of 30 minutes on the date of the service which included preparing to see the patient, [id number] patient care, completing clinical documentation, performing a medically appropriate examination, counseling and educating the patient/family/caregiver, ordering medications, tests, or procedures, independently interpreting results (not separately reported), communicating results to the patient/family/caregiver, and care coordination (not separately reported). Caesar Prado MD, CPE Hematology and Oncology Services Provided at: [place], [place] CC: No referring provider defined for this encounter. 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 Then decrease to 30 mg daily for 1 week and then decrease to 20 mg the next week. RTC in 3 weeks with Wayne to review toxicity and consider dropping steroids further. Once he is below 10 mg Prednisone we can restart his Keytruda. documented in this encounter [facility] 08-23-2023 Note [facility] 08-23-2023 Note [facility] 08-20-2023 Note [place] Electrophysiology Consult Note Reason for visit: S/P PPM hospital follow up Date of Telehealth Visit: 08/20/23 The patient was notified that using 3rd alliance party telecommunication application (e.g., [employer]) is not HIPPA compliant and may carry some privacy risks. Yes The visit was conducted [id number] with the use of audio and video technology [email or web address] between patient and provider for a virtual visit. Verbal consent to provide and bill this service was obtained on 08/20/23 . No signature was obtained due to the COVID-19 pandemic. Patient Location: Patient Home I spent 16 minutes of total time on the day of the visit. This time was spent preparing for the visit, obtaining and reviewing any outside history/data, taking a history, performing an exam/evaluation, counseling and educating patient/family about the diagnosis and plan, performing medical decision making, referring to and communicating with other health care referrals, independently interpreting results and documenting in the EMR, and coordinating care. Please see the additional documentation in this note for specific details. There are no diagnoses linked to this encounter. Pt has been doing well. Feeling better. Device check WNL. No AF seen lately. Prior HPI: Juan Jose Austin is a 83 y.o. 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 He is a 82 yo man. He was initially seen on 04/22/2018 as a new patient. Visit of 04/22/2018: He is planned for cystoscopy and other urological procedure. He has history of bladder cancer and recent CT scan showed a mass for which he will undergo the procedure. He developed chest pain about 10 days ago while watching TV. He says it was sharp pain, in the mid chest, up and down the chest area. Lasted about 1.5 hours. He says it was not related to breathing. No recurrence since then. He has dyspnea on exertion, moderate, relieved by rest. He was evaluated [facility] ED and his CBC, BMP, BNP, Liver enzymes, 2 sets of troponin were all negative. Past testing: Echocardiogram 12/2014: Normal LV systolic function. Mild diastolic dysfunction. No valvular dysfunction. RVSP 31 mmHg. Stress test 12/2014: mostly fixed but minimally reversible inferior/inferolateral defect consistent with artifact. Normal ventricular systolic function. Review of his recent ECGs on 04/13/2018 and 03/2018 showed sinus rhythm with possible LBBB. Update 05/05/2018: He is here to follow up on symptoms and testing. Since last visit he has not had any chest pain. He still has dyspnea on exertion, moderate, relieved by rest. He also has bendopnea. Cardiac testin. Echocardiogram 04/29/2018: Global left ventricular systolic function is normal (Visually estimated EF 60%). The left ventricle is normal size. Left ventricular wall thickness is normal. No regional wall motion abnormality. Grade 1, mild diastolic dysfunction (abnormal relaxation). Normal right ventricular systolic function. The right ventricle is mildly enlarged. The left atrium is mildly enlarged. Unable to assess right sided pressures due to lack of measurable tricuspid regurgitation. No previous study to compare to. 2. Treadmill Stress test 04/29/2018: Normal myocardial perfusion. No ischemia. Normal wall motion. Mildly reduced LV systolic function with EF 45%. Update 11/06/2018: He is seen in follow up. He underwent urologic surgery (including left nephrectomy). He did well with that. He is following with urology and nephrology. His renal function has worsened after the nephrectomy and his Cr stabilized at 1.8 in 09/2018. His blood pressure is better after adding amlodipine. Update 05/25/2019: He is in follow-up. He has no chest pain. he has mild shortness of breath on activity but is not limiting him. He says he can do the things he wants to do. No leg swelling. He has stopped triamterene/HCTZ due to no refills. He has dizziness occasionally. BMP 11/17/2018: Creatinine 1.95, BUN 34, potassium 4.0. Visit of 07/17/2021: He is seen in follow-up. I have not seen him for more than 2 years. Recently he has been having excessive symptoms of shortness of breath on exertion. NYHA class III. He has bilateral lower extremity edema. He denies chest pain. No palpitations. No syncope. Recent testing included a stress test that showed significantly reduced left-ventr (more content not included)... [facility] 08-08-2023 Miscellaneous Notes FYI: Pt reports having a sore throat x 2 days. States it had resolved last night at bed time. Described as feeling scratchy this morning. Gargling w/ warm salt water helps. Denies fevers/chills. No cough or congestion. No shortness of breath. Pt asks if he is ok to come in for his treatment today. Informed pt that since he is afebrile, he may still come in for treatment as scheduled. Pt verbalizes understanding. No additional questions noted. Margot So, RN documented in this encounter [facility] 07-18-2023 Note [facility] 07-18-2023 Instructions Caesar Prado MD - 07/18/2023 1:39 PM EDT Proceed with cycle 9 pembrolizumab today. In 3 weeks to for cycle 10. Labs prior No clinician RTC in 6 weeks prior to C11 Labs every [address] in 5 weeks documented in this encounter [facility] 07-18-2023 History of Present illness Narrative Images from the original note were not included. ONCOLOGY FOLLOW UP July 18, 2023 (Eve) Some elements in this clinic note that are critical to medical decision making have been carefully reviewed and included from a prior clinic note dated: June 27, 2023 (Wero) PCP and other physicians involved in patient's care: Dr. Yoan Sneed (PCP), Dr. Rita Bhatt, Dr. 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 December 05, 2011 bladder washings with rare atypical cells January 10, 2012 left kidney biopsies and renal washings without evidence of malignancy April 05, 2016 urine and renal washing cytology notable for atypical cells May 10, 2016 left kidney and bladder wall biopsies with chronic inflammation March 03, 2018 urine cytology consistent with high grade urothelial carcinoma; UroVysion FISH was positive for aneuploidy in 64 cells and del 9p21 in 8 cells May 15, 2018 Cystoscopy with biopsies consistent with 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 Right renal washings positive for high grade urothelial carcinoma July 02, 2019 Renal tumor biopsy consistent with urothelial carcinoma in situ without invasion August 12, 2019 Cystourethroscopy was notable for a papillary and sessile tumor in the right lower pole and right renal pelvis. Tumor ablated with laser. Right ureteral washings with atypical cells. One dose of mitomycin administered. September 30, 2019 Cystourethroscopy with a low-grade appearing papillary tumor in the right lower pole. Biopsies not possible. 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 Urine cytology positive for high grade urothelial carcinoma October 26, 2021 endoscopic ablation renal pelvis mass biopsy consistent with high grade papillary urothelial carcinoma. No invasion noted. Tumor was not able to be completely resected. Procedure complicated by postoperative CELSO Recommendations to proceed with trial of chemotherapy per tumor board with the goal of shrinking the tumor to allow for endoscopic procedure November 27, 2021 started carboplatin AUC 5 and gemcitabine 1000 mg/m2 day 1 and 8; dose reduced by 20% for grade 2 anemia for cycle 4 January 02, 2023 started pembrolizumab - plan for 2 years 01/23/2023 - progressive dyspnea held Pembro and started on 5 days of steroids.resolved and resumed treatment 03/07/2023 - Pembrolizumab resumed with duration changed to every 4 weeks 03/18/2023 Permanent pacemaker placed 05/31/2023 CT CAP - negative. Updated Visit, July 18, 2023: Dr. Sneed checked his thyroid out and it is doing well. Continues tolerating Pembro really well. Daughter lives nearby has dementia. Updated Visit, June 27, 2023: Juan Jose Austin returns for follow-up and continued treatment with pembrolizumab. He remains on pembrolizumab every 3 weeks and is tolerating it well. He states that he develops skin sores that are red and then turn white. He believes the skin sores are from treatment. He denies nausea, vomiting, diarrhea and abdominal pain. He denies cough, shortness of breath and other pulmonary complaints. No headache or vision changes. No fevers, chills and night sweats or signs/symptoms of infection. No bleeding or abnormal bruising. 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 Overall, he is doing well and wishes to proceed with treatment as planned. Updated Visit, June 06, 2023: Doing well. Scans clear - new 5mm lesion on liver likely non-malignant - cannot have MRI due to pacer. Otherwise doing well. Mouth is better with lemon drops. His Ivone is with him today after spending 3 months in SNF. Updated Visit, May 16, 2023: Continues to do well since having his pacer placed. Needs scans. Will obtain and continue treatment in meanwhile. Labs safe to proceed - no change in kidney function. Mouth gets really dry - drinks almost 80 oz. Updated Visit, April 25, 2023: Juan Jose Austin returns for follow-up and pembrolizumab. He is tolerating the pembrolizumab well. His breathing is better since the pacemaker was placed. He denies cough, shortness of breath and other pulmonary complaints. No skin rashes. No nausea, vomiting, diarrhea or other GI complaints. He denies headaches and blurred vision. He complains of dry mouth. Otherwise no other complaints. He denies fevers, chills, night sweats and signs/symptoms of an section. No bleeding or abnormal bruising. He wishes to proceed with treatment as planned. Updated Visit, April 04, 2023: Juan Jose Austin returns for follow-up. Since his last visit he had a pacemaker placed due to syncopal episodes. The pacemaker was inserted on on 03/18/2023 at [facility] with Dr. Bautista. His shortness of breath and dizziness has resolved since the pacemaker was placed. Overall, he is doing well today. He currently denies cough and shortness of breath. No diarrhea, abdominal pain or other GI complaints. No skin rashes. He recently has noticed an increase in dry mouth. Otherwise, he denies any side effects from treatment. For the most part his urine is clear except for an occasional speck of blood. He wishes to proceed with treatment as planned. Updated Visit, March 07, 2023: Juan Jose returns and is doing better - hard to tell what his baseline is, but I don't think this is immune mediated pneumonitis. Will try treating him every 4 weeks. Instead of every 3. He will call in with his symptoms weekly. Updated Visit, February 21, 2023: Juan Jose continues to have some degree of dyspnea. I am still concerned that he may have pneumonitis due to immune therapy versus underlying dyspnea from chronic lung disease. Updated Visit, January 31, 2023: Dyspnea resolved - CT shows resolution of bibasilar pleural effusions. Doing well and will continue treatment. Updated Visit, January 23, 2023: Juan Jose Austin returns for follow-up and treatment. He received cycle 1 pembrolizumab on 01/02/2023. He states that shortly after treatment he developed shortness of breath with exertion. He is still experiencing shortness of breath. He has intermittent lightheadedness when he takes his blood pressure medication which lasts for 5 to 6 minutes. He denies any diarrhea. His urine is clear. He denies fevers, chills and signs/symptoms of infection. No bleeding or abnormal bruising. Updated Visit, January 02, 2023: Juan Jose returns today to start treatment with Keytruda. He is doing well and has considered other options being close to him because of his age and resulting anuria. He is safe to proceed. Consent was obtained. Education completed risks and benefits were reviewed with him. Expected adverse events were also reviewed. Updated Visit, December 24, 2022: Spoke with Juan Jose and with daughter Britt - they could see me but their video feed was down. Given his comorbidities he is a poor candidate for chemotherapy, pokagon based or otherwise. Surgery would yield him to be anuric and anephric committing him to lifelong dialysis which would not be desirable. Therefore will employ PD-L1 nhibitor for primary treatment. He is agreeable. NGS was unrevealing Updated Visit, November 26, 2022: Here with Daughter Britt Has persisting disease Concerned that he has need for systemic therapy No invasive disease is noted right now - however he is not a good candidate to leave anephric and require dialysis or transplant given his age No pain. Call in 2 weeks Denies any fevers, chills, cough or shortness of breath. ROS is negative except that mentioned in HPI PAST MEDICAL SURGICAL FAMILY AND SOCIAL HISTORY: He has a history of -Chronic kidney disease, stage 3 -Solitary right kidney -Hypertension -Hyperlipidemia -Benign Prostatic Hypertrophy -Low EF 40-45% with hypokinesis on ECHO in October 2021 Previous surgeries include back surgery, carpal tunnel repair, hernia repair and left-sided nephroureterectomy. Family history of significant for lung cancer in father and breast cancer in mother. He has a 40 pack year smoking history; quit in in 1980s. He has 4 children, one of which from multiple blood clots. 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 MEDICATIONS AND ALLERGIES: Reviewed PHYSICAL EXAM: BP 129/52 Pulse 61 Temp 36.4 C (97.6 F) (Temporal) Resp 18 Ht 162.6 cm (5' 4.02 ) Wt 80.7 kg (178 lb) SpO2 96% BMI 30.54 kg/m ECOG 0 Exam limited to gross visualization where appropriate. Gen.: This is an age-appropriate patient in no acute distress. Head: Appears atraumatic with no visible lesions. Eyes: Pupils equally round and reactive to light, extraocular muscles are intact. Neck: Supple. Respiratory: Appears to be respiring comfortably. Neurologic: Nonfocal to gross visualization. Alert and oriented 3. Psychiatric: No evidence of inappropriate anxiety or depression. Skin: Visible areas of skin without rash, lesions, wounds or petechiae. LABORATORY: Hemoglobin (g/dL) Date Value 07/18/2023 13.4 12/04/2021 11.2 Hematocrit (%) Date Value 07/18/2023 40.2 12/04/2021 34.2 WBC (k/uL) Date Value 07/18/2023 7.36 12/04/2021 2.50 Platelet Count (k/uL) Date Value 07/18/2023 179 12/04/2021 129 2D echocardiogram (scanned) with EF of 40-45% in October 2021 ASSESSMENT AND RECOMMENDATIONS 83 year old male with right solitary kidney and recurrent tract urothelial carcinoma Patient was diagnosed with a left-sided upper tract urothelial carcinoma for which he underwent a left nephroureterectomy in 2018. At that point, he was evaluated by medical oncology and given the option of doing adjuvant cisplatin-based chemotherapy. Patient had declined this option at that time. 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 Most recently, based on CT urogram done in September 2021, cytology and ureteroscopy he had local recurrence of a noninvasive papillary high-grade urothelial carcinoma, for which he underwent endoscopic ablation that was incomplete in October 2021. Given his unique situation and in order to avoid nephroureterectomy, we proceeded with a trial of gemcitabine and carboplatin (patient is not a cisplatin candidate given low EF and CKD). Patient has completed 4 cycles of gemcitabine and carboplatin. Side effects included grade 2 myelosuppression needing dose reduction and grade 2 CINV and diarrhea. After last infusion, he had a spell of dizziness resulting in a fall and head injury. we have discussed to hold off on any further chemotherapy at this time. With recent dose reduction and delays, we do not think the benefits of additional chemotherapy would justify the risks. He was started on maintenance immunotherapy with pembrolizumab on 01/02/2023. He had episodes of shortness of breath which we ruled out pneumonitis. Shortness of breath and syncopal episodes were found to be cardiac related and a pacemaker was placed on 03/18/2023. Unfortunately he has persisting disease. NGS. Was unrevealing. No evidence of pneumonitis on imaging. PLAN: Proceed with cycle 9 pembrolizumab today. In 3 weeks to for cycle 10. Labs prior No clinician RTC in 6 weeks prior to C11 Labs every [address] in 5 weeks ALLERGIES: ALLERGIES Allergen Reactions Tape [Adhesive Tape* Other: See Comments Severe blisters MEDICATIONS: levothyroxine (SYNTHROID) 25 mcg tablet 1 tablet in the morning on an empty stomach Orally Once a day for 30 days tamsulosin (FLOMAX) 0.4 mg Take 1 capsule by mouth once daily. ferrous sulfate 325 mg (65 mg iron) tablet Take 325 mg by mouth. pembrolizumab (KEYTRUDA) 25 mg/mL injection Inject intravenously. losartan (COZAAR) 50 mg tablet Take 50 mg by mouth. potassium chloride (K-TAB) 10 mEq tablet Take 10 mEq by mouth twice daily. isosorbide mononitrate ER (IMDUR) 30 mg 24 hr tablet Take 30 mg by mouth once daily. metoprolol succinate ER (TOPROL XL) 25 mg 24 hr tablet Take 25 mg by mouth once daily. amLODIPine (NORVASC) 10 mg tablet Take 10 mg by mouth once daily. hydrALAZINE (APRESOLINE) 50 mg tablet Take 50 mg by mouth three times daily. omeprazole (PRILOSEC) 20 mg capsule Take 1 capsule by mouth twice daily. furosemide (LASIX) 20 mg tablet Take 20 mg by mouth once daily. aspirin, enteric coated (ASPIRIN, ENTERIC COATED) 81 mg EC tablet Take 81 mg by mouth once daily. Glucosamine-Chondroitin 500-400 mg tablet Take 1 tablet by mouth once daily. folic acid/multivit-min/lutein (CENTRUM SILVER ORAL) Take 1 tablet by mouth once daily. balsalazide (COLAZAL) 750 mg capsule Take 1,500 mg by mouth once daily. atorvastatin (LIPITOR) 10 mg tablet Take 10 mg by mouth once daily. iv contrast (will be provided with radiology test) CT Chest ABD/PEL-Inject, intravenously, once for 1 dose.No IV access, insert saline lock prior to the beginning of sedation, infusion, injection of imaging exam. Discontinue saline lock post exam. If Pt. has a central line or IVAD, may access for administration according to line specific nursing protocol. Once exam is complete flush line and de-access according to line specific nursing protocol in the CT contrast administration guidelines link. LABORATORY VALUES: WBC (k/uL) Date Value 07/18/2023 7.36 RBC (m/uL) Date Value 07/18/2023 4.76 Hemoglobin (g/dL) Date Value 07/18/2023 13.4 Hematocrit (%) Date Value 07/18/2023 40.2 MCV (fL) Date Value 07/18/2023 84.5 MCH (pg) Date Value 07/18/2023 28.2 MCHC (g/dL) Date Value 07/18/2023 33.3 RDW-CV (%) Date Value 07/18/2023 13.9 Platelet Count (k/uL) Date Value 07/18/2023 179 MPV (fL) Date Value 07/18/2023 9.1 Glucose (mg/dL) Date Value 07/18/2023 104 (H) BUN (mg/dL) Date Value 07/18/2023 34 (H) Creatinine (mg/dL) Date Value 07/18/2023 2.03 (H) Sodium (mmol/L) Date Value 07/18/2023 140 Potassium (mmol/L) Date Value 07/18/2023 4.1 Chloride (mmol/L) Date Value 07/18/2023 107 (H) CO2 (mmol/L) Date Value 07/18/2023 27 Protein, Total (g/dL) Date Value 07/18/2023 6.1 (L) Albumin (g/dL) Date Value 07/18/2023 4.3 Calcium, Total (mg/dL) Date Value 07/18/2023 9.1 Alkaline Phosphatase (U/L) Date Value 07/18/2023 79 Bilirubin, Total (mg/dL) Date Value 07/18/2023 0.5 AST (U/L) Date Value 07/18/2023 24 ALT (U/L) Date Value 07/18/2023 17 DIAGNOSIS: (C67.8) Malignant 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) (primary encounter diagnosis) Plan: CT ABD/PEL W IVCON, CT CHEST W IVCON, DISCONTINUED: pembrolizumab 200 mg in NaCl 0.9% 58 mL (KEYTRUDA), DISCONTINUED: NaCl 0.9% iv infusion, DISCONTINUED: diphenhydrAMINE 50 mg injection (BENADRYL), DISCONTINUED: hydrocortisone sodium succinate (PF) 100 mg injection (Solu-CORTEF), DISCONTINUED: EPINEPHrine 1 mg/mL (1 mL) 0.3 mg injection, DISCONTINUED: sodium chloride 0.9 % (flush) 10-20 mL (BD POSIFLUSH), DISCONTINUED: sodium chloride 0.9 % (flush) 10-20 mL (BD POSIFLUSH) PAST MEDICAL HISTORY Diagnosis Date Bladder cancer (HCC) Cancer (HCC) Incasive Ureteral Cancer Hematuria Hypertension Nephrolithiasis PAST SURGICAL HISTORY Procedure Laterality Date BACK SURGERY HX CARPAL TUNNEL HERNIA REPAIR HX PAST SURGICAL HISTORY OF Left 06/2018 Nephroureterectomy Social History Tobacco Use Smoking status: Former Packs/day: 1.00 Years: 30.00 Additional pack years: 0.00 Total pack years: 30.00 Types: Cigarettes Quit date: 1970 Years since quittin.8 Passive exposure: Past Smokeless tobacco: Never Vaping Use Vaping Use: Never used Substance Use Topics Alcohol use: No Drug use: No FAMILY HISTORY Problem Relation Age of Onset Asthma Mother other (htn) Mother Asthma Sister Anesthesia Problems No Family History I spent a total of 30 minutes on the date of the service which included preparing to see the patient, [id number] patient care, completing clinical documentation, performing a medically appropriate examination, counseling and educating the patient/family/caregiver, ordering medications, tests, or procedures, independently interpreting results (not separately reported), communicating results to the patient/family/caregiver, and care coordination (not separately reported). Caesar Prado MD, CPE Hematology and Oncology Services Provided at: [place], [place] CC: No referring provider defined for this encounter. Yoan Sneed MD [address] [facility] [id number] documented in this encounter [facility] 06-27-2023 Note [facility] 06-27-2023 History of Present illness Narrative ONCOLOGY FOLLOW UP June 27, 2023 (Wero) Some elements in this clinic note that are critical to medical decision making have been carefully reviewed and included from a prior clinic note dated: June 06, 2023. (Dr. Prado) PCP and other physicians involved in patient's care: Dr. Yoan Sneed (PCP), Dr. Rita Bhatt, Dr. 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 December 05, 2011 bladder washings with rare atypical cells January 10, 2012 left kidney biopsies and renal washings without evidence of malignancy April 05, 2016 urine and renal washing cytology notable for atypical cells May 10, 2016 left kidney and bladder wall biopsies with chronic inflammation March 03, 2018 urine cytology consistent with high grade urothelial carcinoma; UroVysion FISH was positive for aneuploidy in 64 cells and del 9p21 in 8 cells May 15, 2018 Cystoscopy with biopsies consistent with 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 Right renal washings positive for high grade urothelial carcinoma July 02, 2019 Renal tumor biopsy consistent with urothelial carcinoma in situ without invasion August 12, 2019 Cystourethroscopy was notable for a papillary and sessile tumor in the right lower pole and right renal pelvis. Tumor ablated with laser. Right ureteral washings with atypical cells. One dose of mitomycin administered. September 30, 2019 Cystourethroscopy with a low-grade appearing papillary tumor in the right lower pole. Biopsies not possible. 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 Urine cytology positive for high grade urothelial carcinoma October 26, 2021 endoscopic ablation renal pelvis mass biopsy consistent with high grade papillary urothelial carcinoma. No invasion noted. Tumor was not able to be completely resected. Procedure complicated by postoperative CELSO Recommendations to proceed with trial of chemotherapy per tumor board with the goal of shrinking the tumor to allow for endoscopic procedure November 27, 2021 started carboplatin AUC 5 and gemcitabine 1000 mg/m2 day 1 and 8; dose reduced by 20% for grade 2 anemia for cycle 4 January 02, 2023 started pembrolizumab 01/23/2023 - progressive dyspnea held Pembro and started on 5 days of steroids.resolved and resumed treatment 03/07/2023 - Pembrolizumab resumed with duration changed to every 4 weeks 03/18/2023 Permanent pacemaker placed 05/31/2023 CT CAP - negative. Updated Visit, June 27, 2023: Juan Jose Austin returns for follow-up and continued treatment with pembrolizumab. He remains on pembrolizumab every 3 weeks and is tolerating it well. He states that he develops skin sores that are red and then turn white. He believes the skin sores are from treatment. He denies nausea, vomiting, diarrhea and abdominal pain. He denies cough, shortness of breath and other pulmonary complaints. No headache or vision changes. No fevers, chills and night sweats or signs/symptoms of infection. No bleeding or abnormal bruising. 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 Overall, he is doing well and wishes to proceed with treatment as planned. Updated Visit, June 06, 2023: Doing well. Scans clear - new 5mm lesion on liver likely non-malignant - cannot have MRI due to pacer. Otherwise doing well. Mouth is better with lemon drops. His Ivone is with him today after spending 3 months in SNF. Updated Visit, May 16, 2023: Continues to do well since having his pacer placed. Needs scans. Will obtain and continue treatment in meanwhile. Labs safe to proceed - no change in kidney function. Mouth gets really dry - drinks almost 80 oz. Updated Visit, April 25, 2023: Juan Jose Austin returns for follow-up and pembrolizumab. He is tolerating the pembrolizumab well. His breathing is better since the pacemaker was placed. He denies cough, shortness of breath and other pulmonary complaints. No skin rashes. No nausea, vomiting, diarrhea or other GI complaints. He denies headaches and blurred vision. He complains of dry mouth. Otherwise no other complaints. He denies fevers, chills, night sweats and signs/symptoms of an section. No bleeding or abnormal bruising. He wishes to proceed with treatment as planned. Updated Visit, April 04, 2023: Juan Jose Austin returns for follow-up. Since his last visit he had a pacemaker placed due to syncopal episodes. The pacemaker was inserted on on 03/18/2023 at [facility] with Dr. Bautista. His shortness of breath and dizziness has resolved since the pacemaker was placed. Overall, he is doing well today. He currently denies cough and shortness of breath. No diarrhea, abdominal pain or other GI complaints. No skin rashes. He recently has noticed an increase in dry mouth. Otherwise, he denies any side effects from treatment. For the most part his urine is clear except for an occasional speck of blood. He wishes to proceed with treatment as planned. Updated Visit, March 07, 2023: Juan Jose returns and is doing better - hard to tell what his baseline is, but I don't think this is immune mediated pneumonitis. Will try treating him every 4 weeks. Instead of every 3. He will call in with his symptoms weekly. Updated Visit, February 21, 2023: Juan Jose continues to have some degree of dyspnea. I am still concerned that he may have pneumonitis due to immune therapy versus underlying dyspnea from chronic lung disease. Updated Visit, January 31, 2023: Dyspnea resolved - CT shows resolution of bibasilar pleural effusions. Doing well and will continue treatment. Updated Visit, January 23, 2023: Juan Jose Austin returns for follow-up and treatment. He received cycle 1 pembrolizumab on 01/02/2023. He states that shortly after treatment he developed shortness of breath with exertion. He is still experiencing shortness of breath. He has intermittent lightheadedness when he takes his blood pressure medication which lasts for 5 to 6 minutes. He denies any diarrhea. His urine is clear. He denies fevers, chills and signs/symptoms of infection. No bleeding or abnormal bruising. Updated Visit, January 02, 2023: Juan Jose returns today to start treatment with Keytruda. He is doing well and has considered other options being close to him because of his age and resulting anuria. He is safe to proceed. Consent was obtained. Education completed risks and benefits were reviewed with him. Expected adverse events were also reviewed. Updated Visit, December 24, 2022: Spoke with Juan Jose and with daughter Britt - they could see me but their video feed was down. Given his comorbidities he is a poor candidate for chemotherapy, pokagon based or otherwise. Surgery would yield him to be anuric and anephric committing him to lifelong dialysis which would not be desirable. Therefore will employ PD-L1 nhibitor for primary treatment. He is agreeable. NGS was unrevealing Updated Visit, November 26, 2022: Here with Daughter Britt Has persisting disease Concerned that he has need for systemic therapy No invasive disease is noted right now - however he is not a good candidate to leave anephric and require dialysis or transplant given his age No pain. Call in 2 weeks Denies any fevers, chills, cough or shortness of breath. ROS is negative except that mentioned in HPI PAST MEDICAL SURGICAL FAMILY AND SOCIAL HISTORY: He has a history of -Chronic kidney disease, stage 3 -Solitary right kidney -Hypertension -Hyperlipidemia -Benign Prostatic Hypertrophy -Low EF 40-45% with hypokinesis on ECHO in October 2021 Previous surgeries include back surgery, carpal tunnel repair, hernia repair and left-sided nephroureterectomy. Family history of significant for lung cancer in father and breast cancer in mother. He has a 40 pack year smoking history; quit in in . He has 4 children, one of which from multiple blood clots. 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 MEDICATIONS AND ALLERGIES: Reviewed PHYSICAL EXAM: BP 122/56 Pulse 61 Temp 36.1 C (97 F) (Temporal) Resp 16 Ht 162.6 cm (5' 4.02 ) Wt 81.2 kg (179 lb) SpO2 99% BMI 30.71 kg/m ECOG 0 Exam limited to gross visualization where appropriate. Gen.: This is an age-appropriate patient in no acute distress. Head: Appears atraumatic with no visible lesions. Eyes: Pupils equally round and reactive to light, extraocular muscles are intact. Neck: Supple. Respiratory: Appears to be respiring comfortably. Neurologic: Nonfocal to gross visualization. Alert and oriented 3. Psychiatric: No evidence of inappropriate anxiety or depression. Skin: Visible areas of skin without rash, lesions, wounds or petechiae. LABORATORY: Hemoglobin (g/dL) Date Value 06/27/2023 13.3 12/04/2021 11.2 Hematocrit (%) Date Value 06/27/2023 39.7 12/04/2021 34.2 WBC (k/uL) Date Value 06/27/2023 6.32 12/04/2021 2.50 Platelet Count (k/uL) Date Value 06/27/2023 177 12/04/2021 129 2D echocardiogram (scanned) with EF of 40-45% in October 2021 ASSESSMENT AND RECOMMENDATIONS 83 year old male with right solitary kidney and recurrent tract urothelial carcinoma Patient was diagnosed with a left-sided upper tract urothelial carcinoma for which he underwent a left nephroureterectomy in 2018. At that point, he was evaluated by medical oncology and given the option of doing adjuvant cisplatin-based chemotherapy. Patient had declined this option at that time. 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 Most recently, based on CT urogram done in September 2021, cytology and ureteroscopy he had local recurrence of a noninvasive papillary high-grade urothelial carcinoma, for which he underwent endoscopic ablation that was incomplete in October 2021. Given his unique situation and in order to avoid nephroureterectomy, we proceeded with a trial of gemcitabine and carboplatin (patient is not a cisplatin candidate given low EF and CKD). Patient has completed 4 cycles of gemcitabine and carboplatin. Side effects included grade 2 myelosuppression needing dose reduction and grade 2 CINV and diarrhea. After last infusion, he had a spell of dizziness resulting in a fall and head injury. we have discussed to hold off on any further chemotherapy at this time. With recent dose reduction and delays, we do not think the benefits of additional chemotherapy would justify the risks. He was started on maintenance immunotherapy with pembrolizumab on 01/02/2023. He had episodes of shortness of breath which we ruled out pneumonitis. Shortness of breath and syncopal episodes were found to be cardiac related and a pacemaker was placed on 03/18/2023. Unfortunately he has persisting disease. NGS. Was unrevealing. No evidence of pneumonitis on imaging. PLAN: Proceed with cycle 8 pembrolizumab today. Follow up in 3 weeks to for cycle 9. Labs prior. Wayne Chavez APRN.CNP Hematology and Oncology Services Provided at: [place], [place] I spent a total of 30 minutes on the date of the service which included preparing to see the patient, [id number] patient care, completing clinical documentation, obtaining and/or reviewing separately obtained history, performing a medically appropriate examination, counseling and educating the patient/family/caregiver, ordering medications, tests, or procedures, independently interpreting results (not separately reported), and communicating results to the patient/family/caregiver. documented in this encounter [facility] 06-18-2023 Note [facility] 06-18-2023 History of Present illness Narrative VIRTUAL VISIT PROGRESS NOTE This is a virtual visit using Audio only. It required patient-provider interaction for the medical decision making as documented below. I have communicated my name and active licensure. The patient's identity and physical location were verified at the time of this visit. Either the patient or their legal patient financial representative has been informed of the risks and benefits of -- and alternatives to -- treatment through a remote evaluation and consents to proceed with the evaluation remotely. HPI: Juan Jose Austin is a 82 year old male with history of CKD stage 3, HTN, HLD, left upper tract urothelial carcinoma s/p left nephroureterectomy 06/2018, and solitary right kidney with R UTUC s/p URS and laser ablation 10/2019 who was found to have tumor recurrence and underwent right URS, tumor ablation and right ureteral stent placement 10/26/[address] Bhatt. Final pathology revealed scant superficial fragments of high-grade papillary urothelial carcinoma. 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 December 05, 2011 bladder washings with rare atypical cells January 10, 2012 left kidney biopsies and renal washings without evidence of malignancy April 05, 2016 urine and renal washing cytology notable for atypical cells May 10, 2016 left kidney and bladder wall biopsies with chronic inflammation March 03, 2018 urine cytology consistent with high grade urothelial carcinoma; UroVysion FISH was positive for aneuploidy in 64 cells and del 9p21 in 8 cells May 15, 2018 Cystoscopy with biopsies consistent with 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 Right renal washings positive for high grade urothelial carcinoma July 02, 2019 Renal tumor biopsy consistent with urothelial carcinoma in situ without invasion August 12, 2019 Cystourethroscopy was notable for a papillary and sessile tumor in the right lower pole and right renal pelvis. Tumor ablated with laser. Right ureteral washings with atypical cells. One dose of mitomycin administered. September 30, 2019 Cystourethroscopy with a low-grade appearing papillary tumor in the right lower pole. Biopsies not possible. 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 Urine cytology positive for high grade urothelial carcinoma October 26, 2021 endoscopic ablation renal pelvis mass biopsy consistent with high grade papillary urothelial carcinoma. No invasion noted. Tumor was not able to be completely resected. Procedure complicated by postoperative CELSO Recommendations to proceed with trial of chemotherapy per tumor board with the goal of shrinking the tumor to allow for endoscopic procedure November 27, 2021 started carboplatin AUC 5 and gemcitabine 1000 mg/m2 day 1 and 8; dose reduced by 20% for grade 2 anemia for cycle 4 January 02, 2023 started pembrolizumab 01/23/2023 - progressive dyspnea held Pembro and started on 5 days of steroids.resolved and resumed treatment 03/07/2023 - Pembrolizumab resumed with duration changed to every 4 weeks 03/18/2023 Permanent pacemaker placed 05/31/2023 CT CAP - negative. IMAGING 05/31/2023: CT abdomen and Pelvis 1. New indeterminate 5 mm enhancing focus in the dome of the liver. Differential diagnosis includes perfusion phenomenon and other infectious/inflammatory etiologies. Subtle neoplasm cannot be excluded. Consider interval follow-up. 2. Additional punctate splenic hypodensities, too small to characterize, may also be evaluated at interval follow-up. HISTORY REVIEWED (electronic chart updated): PAST MEDICAL HISTORY Diagnosis Date Bladder cancer (HCC) Cancer (HCC) Incasive Ureteral Cancer Hematuria Hypertension Nephrolithiasis PAST SURGICAL HISTORY Procedure Laterality Date BACK SURGERY HX CARPAL TUNNEL HERNIA REPAIR HX PAST SURGICAL HISTORY OF Left 06/2018 Nephroureterectomy FAMILY HISTORY Problem Relation Age of Onset Asthma Mother other (htn) Mother Asthma Sister Anesthesia Problems No Family History Social History Tobacco Use Smoking status: Former Packs/day: 1.00 Years: 30.00 Additional pack years: 0.00 Total pack years: 30.00 Types: Cigarettes Quit date: 1970 Years since quittin.7 Passive exposure: Past Smokeless tobacco: Never Vaping Use Vaping Use: Never used Substance Use Topics Alcohol use: No Drug use: No Current Outpatient Medications Medication Sig tamsulosin (FLOMAX) 0.4 mg Take 1 capsule by mouth once daily. ferrous sulfate 325 mg (65 mg iron) tablet Take 325 mg by mouth. pembrolizumab (KEYTRUDA) 25 mg/mL injection Inject intravenously. iv contrast (will be provided with radiology test) CT Chest ABD/PEL-Inject, intravenously, once for 1 dose.No IV access, insert saline lock prior to the beginning of sedation, infusion, injection of imaging exam. Discontinue saline lock post exam. If Pt. has a central line or IVAD, may access for administration according to line specific nursing protocol. Once exam is complete flush line and de-access according to line specific nursing protocol in the CT contrast administration guidelines link. enteric contrast (will be provided with radiology test) For CT CHESTABD/PEL W IVCON Routine order Administer, As Directed One Time Only, via Oral, Rectal, both Oral and Rectal, Enteric Tube, Stoma or Indwelling Catheter, Enteric Contrast as designated per enteric contrast guidelines losartan (COZAAR) 50 mg tablet Take 50 mg by mouth. potassium chloride (K-TAB) 10 mEq tablet Take 10 mEq by mouth twice daily. isosorbide mononitrate ER (IMDUR) 30 mg 24 hr tablet Take 30 mg by mouth once daily. metoprolol succinate ER (TOPROL XL) 25 mg 24 hr tablet Take 25 mg by mouth once daily. amLODIPine (NORVASC) 10 mg tablet Take 10 mg by mouth once daily. hydrALAZINE (APRESOLINE) 50 mg tablet Take 50 mg by mouth three times daily. omeprazole (PRILOSEC) 20 mg capsule Take 1 capsule by mouth twice daily. furosemide (LASIX) 20 mg tablet Take 20 mg by mouth once daily. aspirin, enteric coated (ASPIRIN, ENTERIC COATED) 81 mg EC tablet Take 81 mg by mouth once daily. Glucosamine-Chondroitin 500-400 mg tablet Take 1 tablet by mouth once daily. folic acid/multivit-min/lutein (CENTRUM SILVER ORAL) Take 1 tablet by mouth once daily. balsalazide (COLAZAL) 750 mg capsule Take 1,500 mg by mouth once daily. atorvastatin (LIPITOR) 10 mg tablet Take 10 mg by mouth once daily. No current facility-administered medications for this visit. ALLERGIES Allergen Reactions Tape [Adhesive Tape* Other: See Comments Severe blisters PLAN: Continue treatment with Pembrolizumab with Medical Oncology. Open Follow-up appointment with Urology. I discussed plan with Dr. Sandy Bhatt MD documented in this encounter [facility] 06-06-2023 Note [facility] 06-06-2023 History of Present illness Narrative Images from the original note were not included. ONCOLOGY FOLLOW UP June 06, 2023 () Some elements in this clinic note that are critical to medical decision making have been carefully reviewed and included from a prior clinic note dated: May 16, 2023 (Eve) PCP and other physicians involved in patient's care: Dr. Yoan Sneed (PCP), Dr. Rita Bhatt, Dr. 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 December 05, 2011 bladder washings with rare atypical cells January 10, 2012 left kidney biopsies and renal washings without evidence of malignancy April 05, 2016 urine and renal washing cytology notable for atypical cells May 10, 2016 left kidney and bladder wall biopsies with chronic inflammation March 03, 2018 urine cytology consistent with high grade urothelial carcinoma; UroVysion FISH was positive for aneuploidy in 64 cells and del 9p21 in 8 cells May 15, 2018 Cystoscopy with biopsies consistent with 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 Right renal washings positive for high grade urothelial carcinoma July 02, 2019 Renal tumor biopsy consistent with urothelial carcinoma in situ without invasion August 12, 2019 Cystourethroscopy was notable for a papillary and sessile tumor in the right lower pole and right renal pelvis. Tumor ablated with laser. Right ureteral washings with atypical cells. One dose of mitomycin administered. September 30, 2019 Cystourethroscopy with a low-grade appearing papillary tumor in the right lower pole. Biopsies not possible. 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 Urine cytology positive for high grade urothelial carcinoma October 26, 2021 endoscopic ablation renal pelvis mass biopsy consistent with high grade papillary urothelial carcinoma. No invasion noted. Tumor was not able to be completely resected. Procedure complicated by postoperative CELSO Recommendations to proceed with trial of chemotherapy per tumor board with the goal of shrinking the tumor to allow for endoscopic procedure November 27, 2021 started carboplatin AUC 5 and gemcitabine 1000 mg/m2 day 1 and 8; dose reduced by 20% for grade 2 anemia for cycle 4 January 02, 2023 started pembrolizumab 01/23/2023 - progressive dyspnea held Pembro and started on 5 days of steroids.resolved and resumed treatment 03/07/2023 - Pembrolizumab resumed with duration changed to every 4 weeks 03/18/2023 Permanent pacemaker placed 05/31/2023 CT CAP - negative. Updated Visit, June 06, 2023: Doing well. Scans clear - new 5mm lesion on liver likely non-malignant - cannot have MRI due to pacer. Otherwise doing well. Mouth is better with lemon drops. His Ivone is with him today after spending 3 months in SNF. Updated Visit, May 16, 2023: Continues to do well since having his pacer placed. Needs scans. Will obtain and continue treatment in meanwhile. Labs safe to proceed - no change in kidney function. Mouth gets really dry - drinks almost 80 oz. Updated Visit, April 25, 2023: Juan Jose Austin returns for follow-up and pembrolizumab. He is tolerating the pembrolizumab well. His breathing is better since the pacemaker was placed. He denies cough, shortness of breath and other pulmonary complaints. No skin rashes. No nausea, vomiting, diarrhea or other GI complaints. He denies headaches and blurred vision. He complains of dry mouth. Otherwise no other complaints. He denies fevers, chills, night sweats and signs/symptoms of an section. No bleeding or abnormal bruising. He wishes to proceed with treatment as planned. Updated Visit, April 04, 2023: Juan Jose Austin returns for follow-up. Since his last visit he had a pacemaker placed due to syncopal episodes. The pacemaker was inserted on on 03/18/2023 at [facility] with Dr. Bautista. His shortness of breath and dizziness has resolved since the pacemaker was placed. Overall, he is doing well today. He currently denies cough and shortness of breath. No diarrhea, abdominal pain or other GI complaints. No skin rashes. He recently has noticed an increase in dry mouth. Otherwise, he denies any side effects from treatment. For the most part his urine is clear except for an occasional speck of blood. He wishes to proceed with treatment as planned. Updated Visit, March 07, 2023: Juan Jose returns and is doing better - hard to tell what his baseline is, but I don't think this is immune mediated pneumonitis. Will try treating him every 4 weeks. Instead of every 3. He will call in with his symptoms weekly. Updated Visit, February 21, 2023: Juan Jose continues to have some degree of dyspnea. I am still concerned that he may have pneumonitis due to immune therapy versus underlying dyspnea from chronic lung disease. Updated Visit, January 31, 2023: Dyspnea resolved - CT shows resolution of bibasilar pleural effusions. Doing well and will continue treatment. Updated Visit, January 23, 2023: Juan Jose Austin returns for follow-up and treatment. He received cycle 1 pembrolizumab on 01/02/2023. He states that shortly after treatment he developed shortness of breath with exertion. He is still experiencing shortness of breath. He has intermittent lightheadedness when he takes his blood pressure medication which lasts for 5 to 6 minutes. He denies any diarrhea. His urine is clear. He denies fevers, chills and signs/symptoms of infection. No bleeding or abnormal bruising. Updated Visit, January 02, 2023: Juan Jose returns today to start treatment with Keytruda. He is doing well and has considered other options being close to him because of his age and resulting anuria. He is safe to proceed. Consent was obtained. Education completed risks and benefits were reviewed with him. Expected adverse events were also reviewed. Updated Visit, December 24, 2022: Spoke with Juan Jose and with daughter Britt - they could see me but their video feed was down. Given his comorbidities he is a poor candidate for chemotherapy, pokagon based or otherwise. Surgery would yield him to be anuric and anephric committing him to lifelong dialysis which would not be desirable. Therefore will employ PD-L1 nhibitor for primary treatment. He is agreeable. NGS was unrevealing Updated Visit, November 26, 2022: Here with Daughter Britt Has persisting disease Concerned that he has need for systemic therapy No invasive disease is noted right now - however he is not a good candidate to leave anephric and require dialysis or transplant given his age No pain. Call in 2 weeks Denies any fevers, chills, cough or shortness of breath. ROS is negative except that mentioned in HPI PAST MEDICAL SURGICAL FAMILY AND SOCIAL HISTORY: He has a history of -Chronic kidney disease, stage 3 -Solitary right kidney -Hypertension -Hyperlipidemia -Benign Prostatic Hypertrophy -Low EF 40-45% with hypokinesis on ECHO in October 2021 Previous surgeries include back surgery, carpal tunnel repair, hernia repair and left-sided nephroureterectomy. Family history of significant for lung cancer in father and breast cancer in mother. He has a 40 pack year smoking history; quit in in . He has 4 children, one of which from multiple blood clots. 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 MEDICATIONS AND ALLERGIES: Reviewed PHYSICAL EXAM: BP 131/63 Pulse 60 Temp 36.6 C (97.8 F) (Temporal) Resp 16 Ht 162.6 cm (5' 4.02 ) Wt 80.5 kg (177 lb 6.4 oz) SpO2 99% BMI 30.44 kg/m ECOG 0 Exam limited to gross visualization where appropriate. Gen.: This is an age-appropriate patient in no acute distress. Head: Appears atraumatic with no visible lesions. Eyes: Pupils equally round and reactive to light, extraocular muscles are intact. Neck: Supple. Respiratory: Appears to be respiring comfortably. Neurologic: Nonfocal to gross visualization. Alert and oriented 3. Psychiatric: No evidence of inappropriate anxiety or depression. Skin: Visible areas of skin without rash, lesions, wounds or petechiae. LABORATORY: Hemoglobin (g/dL) Date Value 06/06/2023 14.4 12/04/2021 11.2 Hematocrit (%) Date Value 06/06/2023 42.6 12/04/2021 34.2 WBC (k/uL) Date Value 06/06/2023 6.60 12/04/2021 2.50 Platelet Count (k/uL) Date Value 06/06/2023 185 12/04/2021 129 2D echocardiogram (scanned) with EF of 40-45% in October 2021 ASSESSMENT AND RECOMMENDATIONS 83 year old male with right solitary kidney and recurrent tract urothelial carcinoma Patient was diagnosed with a left-sided upper tract urothelial carcinoma for which he underwent a left nephroureterectomy in 2017. At that point, he was evaluated by medical oncology and given the option of doing adjuvant cisplatin-based chemotherapy. Patient had declined this option at that time. 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 Most recently, based on CT urogram done in September 2021, cytology and ureteroscopy he had local recurrence of a noninvasive papillary high-grade urothelial carcinoma, for which he underwent endoscopic ablation that was incomplete in October 2021. Given his unique situation and in order to avoid nephroureterectomy, we proceeded with a trial of gemcitabine and carboplatin (patient is not a cisplatin candidate given low EF and CKD). Patient has completed 4 cycles of gemcitabine and carboplatin. Side effects included grade 2 myelosuppression needing dose reduction and grade 2 CINV and diarrhea. After last infusion, he had a spell of dizziness resulting in a fall and head injury. we have discussed to hold off on any further chemotherapy at this time. With recent dose reduction and delays, we do not think the benefits of additional chemotherapy would justify the risks. He was started on maintenance immunotherapy with pembrolizumab on 01/02/2023. He had episodes of shortness of breath which we ruled out pneumonitis. Shortness of breath and syncopal episodes were found to be cardiac related and a pacemaker was placed on 03/18/2023. Unfortunately he has persisting disease. NGS. Was unrevealing. No evidence of pneumonitis on imaging. PLAN: Proceed with cycle 7 pembrolizumab today. RTC in 3 weeks to for cycle 8. Labs prior. Keep Virtual appointment with Dr. Bhatt next month I spent a total of 30 minutes on the date of the service which included preparing to see the patient, [id number] patient care, completing clinical documentation, performing a medically appropriate examination, counseling and educating the patient/family/caregiver, ordering medications, tests, or procedures, and independently interpreting results (not separately reported). Caesar Prado MD, CPE Hematology and Oncology Services Provided at: [place], [place] documented in this encounter [facility] 05-31-2023 Miscellaneous Notes Requested Prescriptions Pending Prescriptions Disp Refills tamsulosin (FLOMAX) 0.4 mg 30 capsule 5 Sig: Take 1 capsule by mouth once daily. DAUGHTER STATES PATIENT IS OUT OF PILLS documented in this encounter [facility] 05-31-2023 Note [facility] 05-31-2023 Note [facility] 05-16-2023 Note [facility] 05-16-2023 Instructions Casear Prado MD - 05/16/2023 2:[address] CAP in 1 -2 weeks Reschedule appointment with Dr. Bhatt after CT. Proceed with cycle 6 pembrolizumab today. Follow up in 3 weeks to for cycle 7. Labs prior. Review Scans Hold Lasix for a few days to see if mouth improves. documented in this encounter [facility] 05-16-2023 History of Present illness Narrative Images from the original note were not included. ONCOLOGY FOLLOW UP May 16, 2023 (Eve) Some elements in this clinic note that are critical to medical decision making have been carefully reviewed and included from a prior clinic note dated:April 25, 2023 (Wero) PCP and other physicians involved in patient's care: Dr. Yoan Sneed (PCP), Dr. Rita Bhatt, Dr. 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 December 05, 2011 bladder washings with rare atypical cells January 10, 2012 left kidney biopsies and renal washings without evidence of malignancy April 05, 2016 urine and renal washing cytology notable for atypical cells May 10, 2016 left kidney and bladder wall biopsies with chronic inflammation March 03, 2018 urine cytology consistent with high grade urothelial carcinoma; UroVysion FISH was positive for aneuploidy in 64 cells and del 9p21 in 8 cells May 15, 2018 Cystoscopy with biopsies consistent with 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 Right renal washings positive for high grade urothelial carcinoma July 02, 2019 Renal tumor biopsy consistent with urothelial carcinoma in situ without invasion August 12, 2019 Cystourethroscopy was notable for a papillary and sessile tumor in the right lower pole and right renal pelvis. Tumor ablated with laser. Right ureteral washings with atypical cells. One dose of mitomycin administered. September 30, 2019 Cystourethroscopy with a low-grade appearing papillary tumor in the right lower pole. Biopsies not possible. 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 Urine cytology positive for high grade urothelial carcinoma October 26, 2021 endoscopic ablation renal pelvis mass biopsy consistent with high grade papillary urothelial carcinoma. No invasion noted. Tumor was not able to be completely resected. Procedure complicated by postoperative CELSO Recommendations to proceed with trial of chemotherapy per tumor board with the goal of shrinking the tumor to allow for endoscopic procedure November 27, 2021 started carboplatin AUC 5 and gemcitabine 1000 mg/m2 day 1 and 8; dose reduced by 20% for grade 2 anemia for cycle 4 January 02, 2023 started pembrolizumab 01/23/2023 - progressive dyspnea held Pembro and started on 5 days of steroids.resolved and resumed treatment 03/07/2023 - Pembrolizumab resumed with duration changed to every 4 weeks 03/18/2023 Permanent pacemaker placed Updated Visit, May 16, 2023: Continues to do well since having his pacer placed. Needs scans. Will obtain and continue treatment in meanwhile. Labs safe to proceed - no change in kidney function. Mouth gets really dry - drinks almost 80 oz. Updated Visit, April 25, 2023: Juan Jose Austin returns for follow-up and pembrolizumab. He is tolerating the pembrolizumab well. His breathing is better since the pacemaker was placed. He denies cough, shortness of breath and other pulmonary complaints. No skin rashes. No nausea, vomiting, diarrhea or other GI complaints. He denies headaches and blurred vision. He complains of dry mouth. Otherwise no other complaints. He denies fevers, chills, night sweats and signs/symptoms of an section. No bleeding or abnormal bruising. He wishes to proceed with treatment as planned. Updated Visit, April 04, 2023: Juan Jose Austin returns for follow-up. Since his last visit he had a pacemaker placed due to syncopal episodes. The pacemaker was inserted on on 03/18/2023 at [facility] with Dr. Bautista. His shortness of breath and dizziness has resolved since the pacemaker was placed. Overall, he is doing well today. He currently denies cough and shortness of breath. No diarrhea, abdominal pain or other GI complaints. No skin rashes. He recently has noticed an increase in dry mouth. Otherwise, he denies any side effects from treatment. For the most part his urine is clear except for an occasional speck of blood. He wishes to proceed with treatment as planned. Updated Visit, March 07, 2023: Juan Jose returns and is doing better - hard to tell what his baseline is, but I don't think this is immune mediated pneumonitis. Will try treating him every 4 weeks. Instead of every 3. He will call in with his symptoms weekly. Updated Visit, February 21, 2023: Juan Jose continues to have some degree of dyspnea. I am still concerned that he may have pneumonitis due to immune therapy versus underlying dyspnea from chronic lung disease. Updated Visit, January 31, 2023: Dyspnea resolved - CT shows resolution of bibasilar pleural effusions. Doing well and will continue treatment. Updated Visit, January 23, 2023: Juan Jose Austin returns for follow-up and treatment. He received cycle 1 pembrolizumab on 01/02/2023. He states that shortly after treatment he developed shortness of breath with exertion. He is still experiencing shortness of breath. He has intermittent lightheadedness when he takes his blood pressure medication which lasts for 5 to 6 minutes. He denies any diarrhea. His urine is clear. He denies fevers, chills and signs/symptoms of infection. No bleeding or abnormal bruising. Updated Visit, January 02, 2023: Juan Jose returns today to start treatment with Keytruda. He is doing well and has considered other options being close to him because of his age and resulting anuria. He is safe to proceed. Consent was obtained. Education completed risks and benefits were reviewed with him. Expected adverse events were also reviewed. Updated Visit, December 24, 2022: Spoke with Juan Jose and with daughter Britt - they could see me but their video feed was down. Given his comorbidities he is a poor candidate for chemotherapy, pokagon based or otherwise. Surgery would yield him to be anuric and anephric committing him to lifelong dialysis which would not be desirable. Therefore will employ PD-L1 nhibitor for primary treatment. He is agreeable. NGS was unrevealing Updated Visit, November 26, 2022: Here with Daughter Britt Has persisting disease Concerned that he has need for systemic therapy No invasive disease is noted right now - however he is not a good candidate to leave anephric and require dialysis or transplant given his age No pain. Call in 2 weeks Denies any fevers, chills, cough or shortness of breath. ROS is negative except that mentioned in HPI PAST MEDICAL SURGICAL FAMILY AND SOCIAL HISTORY: He has a history of -Chronic kidney disease, stage 3 -Solitary right kidney -Hypertension -Hyperlipidemia -Benign Prostatic Hypertrophy -Low EF 40-45% with hypokinesis on ECHO in October 2021 Previous surgeries include back surgery, carpal tunnel repair, hernia repair and left-sided nephroureterectomy. Family history of significant for lung cancer in father and breast cancer in mother. He has a 40 pack year smoking history; quit in in 1980s. He has 4 children, one of which from multiple blood clots. 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 MEDICATIONS AND ALLERGIES: Reviewed PHYSICAL EXAM: BP 116/55 Pulse 62 Temp 36.6 C (97.8 F) (Temporal) Resp 18 Ht 162.6 cm (5' 4.02 ) Wt 80.6 kg (177 lb 12.8 oz) SpO2 100% BMI 30.50 kg/m ECOG 0 Exam limited to gross visualization where appropriate. Gen.: This is an age-appropriate patient in no acute distress. Head: Appears atraumatic with no visible lesions. Eyes: Pupils equally round and reactive to light, extraocular muscles are intact. Neck: Supple. Respiratory: Appears to be respiring comfortably. Neurologic: Nonfocal to gross visualization. Alert and oriented 3. Psychiatric: No evidence of inappropriate anxiety or depression. Skin: Visible areas of skin without rash, lesions, wounds or petechiae. LABORATORY: Hemoglobin (g/dL) Date Value 05/16/2023 13.3 12/04/2021 11.2 Hematocrit (%) Date Value 05/16/2023 40.4 12/04/2021 34.2 WBC (k/uL) Date Value 05/16/2023 6.91 12/04/2021 2.50 Platelet Count (k/uL) Date Value 05/16/2023 188 12/04/2021 129 2D echocardiogram (scanned) with EF of 40-45% in October 2021 ASSESSMENT AND RECOMMENDATIONS 83 year old male with right solitary kidney and recurrent tract urothelial carcinoma Patient was diagnosed with a left-sided upper tract urothelial carcinoma for which he underwent a left nephroureterectomy in 2018. At that point, he was evaluated by medical oncology and given the option of doing adjuvant cisplatin-based chemotherapy. Patient had declined this option at that time. 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 Most recently, based on CT urogram done in September 2021, cytology and ureteroscopy he had local recurrence of a noninvasive papillary high-grade urothelial carcinoma, for which he underwent endoscopic ablation that was incomplete in October 2021. Given his unique situation and in order to avoid nephroureterectomy, we proceeded with a trial of gemcitabine and carboplatin (patient is not a cisplatin candidate given low EF and CKD). Patient has completed 4 cycles of gemcitabine and carboplatin. Side effects included grade 2 myelosuppression needing dose reduction and grade 2 CINV and diarrhea. After last infusion, he had a spell of dizziness resulting in a fall and head injury. we have discussed to hold off on any further chemotherapy at this time. With recent dose reduction and delays, we do not think the benefits of additional chemotherapy would justify the risks. He was started on maintenance immunotherapy with pembrolizumab on 01/02/2023. He had episodes of shortness of breath which we ruled out pneumonitis. Shortness of breath and syncopal episodes were found to be cardiac related and a pacemaker was placed on 03/18/2023. Unfortunately he has persisting disease. NGS. Was unrevealing. No evidence of pneumonitis on imaging. PLAN: Restaging CT CAP in 1 -2 weeks Reschedule appointment with Dr. Bhatt after CT. Proceed with cycle 6 pembrolizumab today. Follow up in 3 weeks to for cycle 7. Labs prior. Review Scans Hold Lasix for a few days to see if mouth improves. I spent a total of 30 minutes on the date of the service which included preparing to see the patient, [id number] patient care, completing clinical documentation, performing a medically appropriate examination, counseling and educating the patient/family/caregiver, ordering medications, tests, or procedures, and independently interpreting results (not separately reported). Caesar Prado MD, CPE Hematology and Oncology Services Provided at: [place], [place] documented in this encounter [facility] 05-07-2023 Note HNO ID: [id number] Author: Rita Bhatt MD Service: ? Author Type: Physician Type: Progress Notes Filed: 05/25/2023 4:55 PM Note Text: s [facility] 05-07-2023 History of Present illness Narrative s documented in this encounter [facility] 05-06-2023 Note -hx of flutter -not on ac , on aspirin Does not want AC -no flutter since recommended for ablation per documentation -will monitor device for arrhythmia [facility] 05-06-2023 Note -s/p DC PPM -device check stable [facility] 05-06-2023 Note -stable -ct meds [facility] 05-06-2023 Note - NYHA I-2 GDMT: Losartan 50 mg, Toprol-XL 25 mg, Isordil 20 mg twice daily, hydralazine 25 mg 3 times daily, Lasix 20 mg daily, Lipitor 10 mg daily, aspirin 81 mg, amlodipine 10 mg -pending repeat echo, previously echo 04/05 EF 48% [facility] 04-26-2023 Note Review of Systems All other systems reviewed and are negative. [facility] 04-26-2023 Note [place] Electrophysiology Consult Note Reason for visit: S/P PPM hospital follow up HPI: Juan Jose Austin is a 83 y.o. 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 He is a 82 yo man. He was initially seen on 04/22/2018 as a new patient. Visit of 04/22/2018: He is planned for cystoscopy and other urological procedure. He has history of bladder cancer and recent CT scan showed a mass for which he will undergo the procedure. He developed chest pain about 10 days ago while watching TV. He says it was sharp pain, in the mid chest, up and down the chest area. Lasted about 1.5 hours. He says it was not related to breathing. No recurrence since then. He has dyspnea on exertion, moderate, relieved by rest. He was evaluated [facility] ED and his CBC, BMP, BNP, Liver enzymes, 2 sets of troponin were all negative. Past testing: Echocardiogram 12/2014: Normal LV systolic function. Mild diastolic dysfunction. No valvular dysfunction. RVSP 31 mmHg. Stress test 12/2014: mostly fixed but minimally reversible inferior/inferolateral defect consistent with artifact. Normal ventricular systolic function. Review of his recent ECGs on 04/13/2018 and 03/2018 showed sinus rhythm with possible LBBB. Update 05/05/2018: He is here to follow up on symptoms and testing. Since last visit he has not had any chest pain. He still has dyspnea on exertion, moderate, relieved by rest. He also has bendopnea. Cardiac testin. Echocardiogram 04/29/2018: Global left ventricular systolic function is normal (Visually estimated EF 60%). The left ventricle is normal size. Left ventricular wall thickness is normal. No regional wall motion abnormality. Grade 1, mild diastolic dysfunction (abnormal relaxation). Normal right ventricular systolic function. The right ventricle is mildly enlarged. The left atrium is mildly enlarged. Unable to assess right sided pressures due to lack of measurable tricuspid regurgitation. No previous study to compare to. 2. Treadmill Stress test 04/29/2018: Normal myocardial perfusion. No ischemia. Normal wall motion. Mildly reduced LV systolic function with EF 45%. Update 11/06/2018: He is seen in follow up. He underwent urologic surgery (including left nephrectomy). He did well with that. He is following with urology and nephrology. His renal function has worsened after the nephrectomy and his Cr stabilized at 1.8 in 09/2018. His blood pressure is better after adding amlodipine. Update 05/25/2019: He is in follow-up. He has no chest pain. he has mild shortness of breath on activity but is not limiting him. He says he can do the things he wants to do. No leg swelling. He has stopped triamterene/HCTZ due to no refills. He has dizziness occasionally. BMP 11/17/2018: Creatinine 1.95, BUN 34, potassium 4.0. Visit of 07/17/2021: He is seen in follow-up. I have not seen him for more than 2 years. Recently he has been having excessive symptoms of shortness of breath on exertion. NYHA class III. He has bilateral lower extremity edema. He denies chest pain. No palpitations. No syncope. Recent testing included a stress test that showed significantly reduced left-ventricular systolic function with an ejection fraction of 37%. No ischemia was found. In addition he had elevated BNP. Stress test 06/27/2021: No acute or reversible ischemia, moderate-marked decreased perfusion of the inferior wall from base to apex favoring remote infarction. Diaphragmatic attenuation artifact is not completely excluded. Marked ventriculomegaly, 232 mL. Severe global hypokinesis with no movement of the apex. Markedly low ejection fraction, 37%. ECG shows left bundle branch block. Blood testing 06/27/2021: Hemoglobin 13.8, platelets 220, BUN 22, creatinine 1.63, potassium 3.9, LFTs within normal limits, cholesterol 137, HDL 47, triglycerides 86, LDL 73, NT proBNP 4459, hemoglobin A1c 5.2. Visit of 08/29/2021: He is seen in follow-up. At last visit I reviewed with him the results of the stress test in June 2021 that did not show ischemia. However I indicated to him that there is still possibility that he has significant coronary artery disease. Given his renal dysfunction I wanted to manage him medically at this point and consider cardiac catheterization if he does not respond. I optimize heart failure treatment by (more content not included)... [facility] 04-25-2023 Note [facility] 04-25-2023 History of Present illness Narrative Images from the original note were not included. ONCOLOGY FOLLOW UP April 25, 2023 ([place]ero) Some elements in this clinic note that are critical to medical decision making have been carefully reviewed and included from a prior clinic note dated: April 04, 2023. (Wero) PCP and other physicians involved in patient's care: Dr. Yoan Sneed (PCP), Dr. Rita Bhatt, Dr. 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 December 05, 2011 bladder washings with rare atypical cells January 10, 2012 left kidney biopsies and renal washings without evidence of malignancy April 05, 2016 urine and renal washing cytology notable for atypical cells May 10, 2016 left kidney and bladder wall biopsies with chronic inflammation March 03, 2018 urine cytology consistent with high grade urothelial carcinoma; UroVysion FISH was positive for aneuploidy in 64 cells and del 9p21 in 8 cells May 15, 2018 Cystoscopy with biopsies consistent with 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 Right renal washings positive for high grade urothelial carcinoma July 02, 2019 Renal tumor biopsy consistent with urothelial carcinoma in situ without invasion August 12, 2019 Cystourethroscopy was notable for a papillary and sessile tumor in the right lower pole and right renal pelvis. Tumor ablated with laser. Right ureteral washings with atypical cells. One dose of mitomycin administered. September 30, 2019 Cystourethroscopy with a low-grade appearing papillary tumor in the right lower pole. Biopsies not possible. 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 Urine cytology positive for high grade urothelial carcinoma October 26, 2021 endoscopic ablation renal pelvis mass biopsy consistent with high grade papillary urothelial carcinoma. No invasion noted. Tumor was not able to be completely resected. Procedure complicated by postoperative CELSO Recommendations to proceed with trial of chemotherapy per tumor board with the goal of shrinking the tumor to allow for endoscopic procedure November 27, 2021 started carboplatin AUC 5 and gemcitabine 1000 mg/m2 day 1 and 8; dose reduced by 20% for grade 2 anemia for cycle 4 January 02, 2023 started pembrolizumab 01/23/2023 - progressive dyspnea held Pembro and started on 5 days of steroids.resolved and resumed treatment 03/07/2023 - Pembrolizumab resumed with duration changed to every 4 weeks 03/18/2023 Permanent pacemaker placed Updated Visit, April 25, 2023: Juan Jose Shirley Austin returns for follow-up and pembrolizumab. He is tolerating the pembrolizumab well. His breathing is better since the pacemaker was placed. He denies cough, shortness of breath and other pulmonary complaints. No skin rashes. No nausea, vomiting, diarrhea or other GI complaints. He denies headaches and blurred vision. He complains of dry mouth. Otherwise no other complaints. He denies fevers, chills, night sweats and signs/symptoms of an section. No bleeding or abnormal bruising. He wishes to proceed with treatment as planned. Updated Visit, April 04, 2023: Juan Jose aWtson Austin returns for follow-up. Since his last visit he had a pacemaker placed due to syncopal episodes. The pacemaker was inserted on on 03/18/2023 at [facility] with Dr. Bautista. His shortness of breath and dizziness has resolved since the pacemaker was placed. Overall, he is doing well today. He currently denies cough and shortness of breath. No diarrhea, abdominal pain or other GI complaints. No skin rashes. He recently has noticed an increase in dry mouth. Otherwise, he denies any side effects from treatment. For the most part his urine is clear except for an occasional speck of blood. He wishes to proceed with treatment as planned. Updated Visit, March 07, 2023: Juan Jose returns and is doing better - hard to tell what his baseline is, but I don't think this is immune mediated pneumonitis. Will try treating him every 4 weeks. Instead of every 3. He will call in with his symptoms weekly. Updated Visit, February 21, 2023: Juan Jose continues to have some degree of dyspnea. I am still concerned that he may have pneumonitis due to immune therapy versus underlying dyspnea from chronic lung disease. Updated Visit, January 31, 2023: Dyspnea resolved - CT shows resolution of bibasilar pleural effusions. Doing well and will continue treatment. Updated Visit, January 23, 2023: Juan Jose Austin returns for follow-up and treatment. He received cycle 1 pembrolizumab on 01/02/2023. He states that shortly after treatment he developed shortness of breath with exertion. He is still experiencing shortness of breath. He has intermittent lightheadedness when he takes his blood pressure medication which lasts for 5 to 6 minutes. He denies any diarrhea. His urine is clear. He denies fevers, chills and signs/symptoms of infection. No bleeding or abnormal bruising. Updated Visit, January 02, 2023: Juan Jose returns today to start treatment with Keytruda. He is doing well and has considered other options being close to him because of his age and resulting anuria. He is safe to proceed. Consent was obtained. Education completed risks and benefits were reviewed with him. Expected adverse events were also reviewed. Updated Visit, December 24, 2022: Spoke with Juan Jose and with daughter Britt - they could see me but their video feed was down. Given his comorbidities he is a poor candidate for chemotherapy, pokagon based or otherwise. Surgery would yield him to be anuric and anephric committing him to lifelong dialysis which would not be desirable. Therefore will employ PD-L1 nhibitor for primary treatment. He is agreeable. NGS was unrevealing Updated Visit, November 26, 2022: Here with Daughter Britt Has persisting disease Concerned that he has need for systemic therapy No invasive disease is noted right now - however he is not a good candidate to leave anephric and require dialysis or transplant given his age No pain. Call in 2 weeks Denies any fevers, chills, cough or shortness of breath. ROS is negative except that mentioned in HPI PAST MEDICAL SURGICAL FAMILY AND SOCIAL HISTORY: He has a history of -Chronic kidney disease, stage 3 -Solitary right kidney -Hypertension -Hyperlipidemia -Benign Prostatic Hypertrophy -Low EF 40-45% with hypokinesis on ECHO in October 2021 Previous surgeries include back surgery, carpal tunnel repair, hernia repair and left-sided nephroureterectomy. Family history of significant for lung cancer in father and breast cancer in mother. He has a 40 pack year smoking history; quit in in . He has 4 children, one of which from multiple blood clots. 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 MEDICATIONS AND ALLERGIES: Reviewed PHYSICAL EXAM: BP 140/61 Pulse 66 Temp 36.3 C (97.4 F) (Temporal) Resp 16 Ht 162.6 cm (5' 4.02 ) Wt 80.7 kg (178 lb) SpO2 97% BMI 30.54 kg/m ECOG 0 Exam limited to gross visualization where appropriate. Gen.: This is an age-appropriate patient in no acute distress. Head: Appears atraumatic with no visible lesions. Eyes: Pupils equally round and reactive to light, extraocular muscles are intact. Neck: Supple. Respiratory: Appears to be respiring comfortably. Neurologic: Nonfocal to gross visualization. Alert and oriented 3. Psychiatric: No evidence of inappropriate anxiety or depression. Skin: Visible areas of skin without rash, lesions, wounds or petechiae. LABORATORY: Hemoglobin (g/dL) Date Value 04/25/2023 12.6 12/04/2021 11.2 Hematocrit (%) Date Value 04/25/2023 37.9 12/04/2021 34.2 WBC (k/uL) Date Value 04/25/2023 6.44 12/04/2021 2.50 Platelet Count (k/uL) Date Value 04/25/2023 208 12/04/2021 129 2D echocardiogram (scanned) with EF of 40-45% in October 2021 ASSESSMENT AND RECOMMENDATIONS 83 year old male with right solitary kidney and recurrent tract urothelial carcinoma Patient was diagnosed with a left-sided upper tract urothelial carcinoma for which he underwent a left nephroureterectomy in 2018. At that point, he was evaluated by medical oncology and given the option of doing adjuvant cisplatin-based chemotherapy. Patient had declined this option at that time. 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 Most recently, based on CT urogram done in September 2021, cytology and ureteroscopy he had local recurrence of a noninvasive papillary high-grade urothelial carcinoma, for which he underwent endoscopic ablation that was incomplete in October 2021. Given his unique situation and in order to avoid nephroureterectomy, we proceeded with a trial of gemcitabine and carboplatin (patient is not a cisplatin candidate given low EF and CKD). Patient has completed 4 cycles of gemcitabine and carboplatin. Side effects included grade 2 myelosuppression needing dose reduction and grade 2 CINV and diarrhea. After last infusion, he had a spell of dizziness resulting in a fall and head injury. we have discussed to hold off on any further chemotherapy at this time. With recent dose reduction and delays, we do not think the benefits of additional chemotherapy would justify the risks. He was started on maintenance immunotherapy with pembrolizumab on 01/02/2023. He had episodes of shortness of breath which we ruled out pneumonitis. Shortness of breath and syncopal episodes were found to be cardiac related and a pacemaker was placed on 03/18/2023. Unfortunately he has persisting disease. NGS. Was unrevealing. No evidence of pneumonitis on imaging. PLAN: Proceed with cycle 5 pembrolizumab today. Follow up in 3 weeks to for cycle 6. Labs prior. 3. When he returns we will need to discuss when to restage. Wayne Chavez APRN.[facility] Hematology and Oncology Services Provided at: [facility], [place], [place] I spent a total of 30 minutes on the date of the service which included preparing to see the patient, [id number] patient care, completing clinical documentation, obtaining and/or reviewing separately obtained history, performing a medically appropriate examination, counseling and educating the patient/family/caregiver, ordering medications, tests, or procedures, independently interpreting results (not separately reported), and communicating results to the patient/family/caregiver. documented in this encounter [facility] 04-04-2023 Note [facility] 04-04-2023 History of Present illness Narrative Images from the original note were not included. ONCOLOGY FOLLOW UP April 04, 2023 ([place]) Some elements in this clinic note that are critical to medical decision making have been carefully reviewed and included from a prior clinic note dated: March 07, 2023. (Dr. Prado) PCP and other physicians involved in patient's care: Dr. Yoan Sneed (PCP), Dr. Rita Bhatt, Dr. 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 December 05, 2011 bladder washings with rare atypical cells January 10, 2012 left kidney biopsies and renal washings without evidence of malignancy April 05, 2016 urine and renal washing cytology notable for atypical cells May 10, 2016 left kidney and bladder wall biopsies with chronic inflammation March 03, 2018 urine cytology consistent with high grade urothelial carcinoma; UroVysion FISH was positive for aneuploidy in 64 cells and del 9p21 in 8 cells May 15, 2018 Cystoscopy with biopsies consistent with 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 Right renal washings positive for high grade urothelial carcinoma July 02, 2019 Renal tumor biopsy consistent with urothelial carcinoma in situ without invasion August 12, 2019 Cystourethroscopy was notable for a papillary and sessile tumor in the right lower pole and right renal pelvis. Tumor ablated with laser. Right ureteral washings with atypical cells. One dose of mitomycin administered. September 30, 2019 Cystourethroscopy with a low-grade appearing papillary tumor in the right lower pole. Biopsies not possible. 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 Urine cytology positive for high grade urothelial carcinoma October 26, 2021 endoscopic ablation renal pelvis mass biopsy consistent with high grade papillary urothelial carcinoma. No invasion noted. Tumor was not able to be completely resected. Procedure complicated by postoperative CELSO Recommendations to proceed with trial of chemotherapy per tumor board with the goal of shrinking the tumor to allow for endoscopic procedure November 27, 2021 started carboplatin AUC 5 and gemcitabine 1000 mg/m2 day 1 and 8; dose reduced by 20% for grade 2 anemia for cycle 4 January 02, 2023 started pembrolizumab 01/23/2023 - progressive dyspnea held Pembro and started on 5 days of steroids.resolved and resumed treatment 03/07/2023 - Pembrolizumab resumed with duration changed to every 4 weeks 03/18/2023 Permanent pacemaker placed Updated Visit, April 04, 2023: Juan Jose Austin returns for follow-up. Since his last visit he had a pacemaker placed due to syncopal episodes. The pacemaker was inserted on on 03/18/2022 at [facility] with Dr. Bautista. His shortness of breath and dizziness has resolved since the pacemaker was placed. Overall, he is doing well today. He currently denies cough and shortness of breath. No diarrhea, abdominal pain or other GI complaints. No skin rashes. He recently has noticed an increase in dry mouth. Otherwise, he denies any side effects from treatment. For the most part his urine is clear except for an occasional speck of blood. He wishes to proceed with treatment as planned. Updated Visit, March 07, 2023: Juan Jose returns and is doing better - hard to tell what his baseline is, but I don't think this is immune mediated pneumonitis. Will try treating him every 4 weeks. Instead of every 3. He will call in with his symptoms weekly. Updated Visit, February 21, 2023: Juan Jose continues to have some degree of dyspnea. I am still concerned that he may have pneumonitis due to immune therapy versus underlying dyspnea from chronic lung disease. Updated Visit, January 31, 2023: Dyspnea resolved - CT shows resolution of bibasilar pleural effusions. Doing well and will continue treatment. Updated Visit, January 23, 2023: Juan Jose Austin returns for follow-up and treatment. He received cycle 1 pembrolizumab on 01/02/2023. He states that shortly after treatment he developed shortness of breath with exertion. He is still experiencing shortness of breath. He has intermittent lightheadedness when he takes his blood pressure medication which lasts for 5 to 6 minutes. He denies any diarrhea. His urine is clear. He denies fevers, chills and signs/symptoms of infection. No bleeding or abnormal bruising. Updated Visit, January 02, 2023: Juan Jose returns today to start treatment with Keytruda. He is doing well and has considered other options being close to him because of his age and resulting anuria. He is safe to proceed. Consent was obtained. Education completed risks and benefits were reviewed with him. Expected adverse events were also reviewed. Updated Visit, December 24, 2022: Spoke with Juan Jose and with daughter Britt - they could see me but their video feed was down. Given his comorbidities he is a poor candidate for chemotherapy, pokagon based or otherwise. Surgery would yield him to be anuric and anephric committing him to lifelong dialysis which would not be desirable. Therefore will employ PD-L1 nhibitor for primary treatment. He is agreeable. NGS was unrevealing Updated Visit, November 26, 2022: Here with Daughter Britt Has persisting disease Concerned that he has need for systemic therapy No invasive disease is noted right now - however he is not a good candidate to leave anephric and require dialysis or transplant given his age No pain. Call in 2 weeks Denies any fevers, chills, cough or shortness of breath. ROS is negative except that mentioned in HPI PAST MEDICAL SURGICAL FAMILY AND SOCIAL HISTORY: He has a history of -Chronic kidney disease, stage 3 -Solitary right kidney -Hypertension -Hyperlipidemia -Benign Prostatic Hypertrophy -Low EF 40-45% with hypokinesis on ECHO in October 2021 Previous surgeries include back surgery, carpal tunnel repair, hernia repair and left-sided nephroureterectomy. Family history of significant for lung cancer in father and breast cancer in mother. He has a 40 pack year smoking history; quit in in . He has 4 children, one of which from multiple blood clots. 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 MEDICATIONS AND ALLERGIES: Reviewed PHYSICAL EXAM: BP 139/62 Pulse 67 Temp 36.5 C (97.7 F) (Temporal) Resp 16 Ht 162.6 cm (5' 4.02 ) Wt 80.3 kg (177 lb) SpO2 97% BMI 30.37 kg/m ECOG 0 Exam limited to gross visualization where appropriate. Gen.: This is an age-appropriate patient in no acute distress. Head: Appears atraumatic with no visible lesions. Eyes: Pupils equally round and reactive to light, extraocular muscles are intact. Neck: Supple. Respiratory: Appears to be respiring comfortably. Neurologic: Nonfocal to gross visualization. Alert and oriented 3. Psychiatric: No evidence of inappropriate anxiety or depression. Skin: Visible areas of skin without rash, lesions, wounds or petechiae. LABORATORY: Hemoglobin (g/dL) Date Value 04/04/2023 12.8 12/04/2021 11.2 Hematocrit (%) Date Value 04/04/2023 38.8 12/04/2021 34.2 WBC (k/uL) Date Value 04/04/2023 6.62 12/04/2021 2.50 Platelet Count (k/uL) Date Value 04/04/2023 213 12/04/2021 129 2D echocardiogram (scanned) with EF of 40-45% in October 2021 ASSESSMENT AND RECOMMENDATIONS 82 year old male with right solitary kidney and recurrent tract urothelial carcinoma Patient was diagnosed with a left-sided upper tract urothelial carcinoma for which he underwent a left nephroureterectomy in 2017. At that point, he was evaluated by medical oncology and given the option of doing adjuvant cisplatin-based chemotherapy. Patient had declined this option at that time. 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 Most recently, based on CT urogram done in September 2021, cytology and ureteroscopy he had local recurrence of a noninvasive papillary high-grade urothelial carcinoma, for which he underwent endoscopic ablation that was incomplete in October 2021. Given his unique situation and in order to avoid nephroureterectomy, we proceeded with a trial of gemcitabine and carboplatin (patient is not a cisplatin candidate given low EF and CKD). Patient has completed 4 cycles of gemcitabine and carboplatin. Side effects of included grade 2 myelosuppression needing dose reduction and grade 2 CINV and diarrhea. After last infusion, he had a spell of dizziness resulting in a fall and head injury. I have discussed to hold off on any further chemotherapy at this time. With recent dose reduction and delays, I do not think the benefits of additional chemotherapy would justify the risks. Unfortunately he has persisting disease. NGS. Was unrevealing No evidence of pneumonitis on imaging- dyspnea is persistent today after resolving previous cycle. We will hold again. PLAN: Proceed with cycle 4 pembrolizumab today. Follow up in 3 weeks to for cycle 5. Labs prior. Wayne Chavez APRN.CNP Hematology and Oncology Services Provided at: [place], [place] I spent a total of 30 minutes on the date of the service which included preparing to see the patient, [id number] patient care, completing clinical documentation, obtaining and/or reviewing separately obtained history, performing a medically appropriate examination, counseling and educating the patient/family/caregiver, ordering medications, tests, or procedures, independently interpreting results (not separately reported), and communicating results to the patient/family/caregiver. documented in this encounter [facility] 03-27-2023 Note Patient seen for wou nd check s/p [employer] pacemaker placement on 03/18/2023. Wound is clean, dry, intact, and well approximated with mild ecchymosis. Discussed wound care including avoiding, rubbing, lotions, direct shower head pressure, caution with seat belt and avoiding other irritants. No lifting heavy weights using arm on the same side. Do not lift elbow above the shoulder on the same side for 4-6 weeks. No driving for 3 weeks. He has already been scheduled for device and follow-up appointment. [facility] 03-19-2023 Note Hospital Medicine Discharge Summary Final Discharge Diagnosis: Syncope and collapse symptomatic bradycardia Admission Diagnosis: Syncope and collapse [R55] Hospital course: Juan Jose Austin is a 82 y.o. male who presents to the EP lab for a permanent pacemaker implantation. He is admitted to the hospital with an unwitnessed syncope episode. He follows with electrophysiology outpatient and was scheduled to have a permanent pacemaker placed on Saturday, however he had felt lightheadedness/dizziness and had an unwitnessed syncopal episode.He was started on a dopamine drip for bradycardia and it elevated his heart rates into the 40s, however made him nauseous as well. for symptomatic bradycardia patient underwent permanent pacemaker follow-up chest x-ray was unremarkable cardiology cleared him for discharge on Doxycycline 100mg bid for 7 days. follow-up with EP. 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 patient was started on Toprol 25, continued on hydralazine and isosorbide, rest of the medication deferred to the outpatient follow-up with biometrics technician. Dear Dr. Naren MD, Juan Jose is advised to follow up with you within 1-2 weeks. Follow-up with: Cardiology Scheduled appointments: Future Appointments Date Time Provider Department Center 03/27/2023 9:20 AM Dagoberto James NP [facility] 2023 10:00 AM Josesito Villanueva NP [facility] Tamiko [facility] Your medication list START taking these medications Instructions Last Dose Given Next Dose Due doxycycline 100 mg capsule Commonly known as: Vibramycin Take 1 capsule (100 mg) by mouth in the morning and at bedtime for 14 doses. Take with at least 8 ounces (large glass) of water, do not lie down for 30 minutes after metoprolol succinate XL 25 mg 24 hr tablet Commonly known as: Toprol-XL Take 1 tablet (25 mg) by mouth in the morning for 99 doses. Do not crush or chew. CHANGE how you take these medications Instructions Last Dose Given Next Dose Due hydrALAZINE 25 mg tablet Commonly known as: Apresoline What changed: medication strength how much to take when to take this Take 1 tablet (25 mg) by mouth in the morning, at noon, and at bedtime for 296 doses. CONTINUE taking these medications Instructions Last Dose Given Next Dose Due amLODIPine 10 mg tablet Commonly known as: Norvasc aspirin 81 mg EC tablet atorvastatin 10 mg tablet Commonly known as: Lipitor balsalazide 750 mg capsule Commonly known as: Colazal ferrous sulfate 325 (65 Fe) MG tablet furosemide 20 mg tablet Commonly known as: Lasix Take 1 tablet (20 mg) by mouth in the morning. isosorbide dinitrate 20 mg tablet Commonly known as: Isordil Take 1 tablet (20 mg) by mouth in the morning, at noon, and at bedtime. Keytruda 25 mg/mL chemo injection Generic drug: pembrolizumab losartan 50 mg tablet Commonly known as: Cozaar magnesium oxide 400 mg tablet Commonly known as: Mag-Ox omeprazole [address] capsule Commonly known as: PriLOSEC potassium chloride ER 10 mEq ER capsule Commonly known as: Micro-K tamsulosin 0.4 mg 24 hr capsule Commonly known as: Flomax Where to Get Your Medications These medications were sent to [facility] [id number] [facility] [address] [address] [facility] [id number] doxycycline 100 mg capsule hydrALAZINE 25 mg tablet metoprolol succinate XL 25 mg 24 hr tablet Juan Jose is allergic to adhesive and other. Disposition: Home or Self Care Discharge Condition: Stable Code Status: Prior Diagnostic Results Hematology: Results from last 7 days Lab Units 03/19/23 0548 WBC AUTO 10*3/uL 6.85 HEMOGLOBIN g/dL 11.8* HEMATOCRIT % 34.8* MCV fL 82.3 PLATELETS AUTO 10*3/uL 180 Chemistry: Results from last 7 days Lab Units 03/19/23 0548 SODIUM mmol/L 140 POTASSIUM mmol/L 4.2 CHLORIDE mmol/L 111* CO2 mmol/L 24 BUN mg/dL 36* CREATININE mg/dL 1.95* GLUCOSE mg/dL 111* CALCIUM mg/dL 8.7 No lab exists for component: AFIO2, APHT, APCOT, APOT, ATCO2, CK, ALB, IBILI Test Results Pending At Discharge: Diet at the time of discharge: regular diet Nutrition Screen Activity: Patient currently has no discharge activity orders Objective Blood pressure 138/64, pulse 60, temperature 36.4 ???C (97.5 ???F), temperature source Temporal, resp. rate 19, height 1.626 m (5' 4 ), weight 80.9 kg (178 lb 5.6 oz), SpO2 98 %. General: Alert and oriented x3. Cardiology: Normal rate, regular rhythm. Lungs: Clear to auscultation, no wheezes, rales or rhonchi, symmetric air entry. Abdomen: Soft, non tender, non distended. Extremities: No pitting edema. Neurology: No focal neuro deficit noted. Total time for discharge - review of data, exam, discussion with providers and care-team, med-rec and orders, arranging follow up, counseling of patient and/or family and (more content not included)... [facility] 03-19-2023 Note 03/19/23 1601 Referral Data Referral Source nutrition services worker Activities of Daily Living Living Arrangement (Current/Prior to Hospitalization) Private residence Discharge Planning Support Systems Spouse/significant other;Children Type of Residence/Post Acute Needs Private residence [facility] 03-19-2023 Note continuing left leg Cardiology Progress Note Subjective Subjective: Juan Jose Austin is a 82 y.o. male who was seen and evaluated at bedside this morning. he is doing well and tolerating PPM placement. He states he feels much better than when he came in. Left upper chest insertion site is tender with hematoma but otherwise dressing is CDI patient is aware of this restriction of left upper extremity. telemetry: Mostly a paced at times intermittent a sensing Objective Objective: Patient Vitals for the past 24 hrs: BP Temp Temp src Pulse Resp SpO2 Weight 03/19/23 0937 146/75 -- -- 61 -- -- -- 03/19/23 0700 140/70 -- -- 62 19 97 % -- 03/19/23 0548 -- -- -- -- -- -- 80.9 kg (178 lb 5.6 oz) 03/19/23 0400 131/63 -- -- 61 17 99 % -- 03/19/23 0000 113/57 -- -- 60 15 94 % -- 03/18/23 2000 119/62 36.5 ???C (97.7 ???F) Temporal 60 14 99 % -- 03/18/23 1800 125/61 -- -- 60 17 98 % -- 03/18/23 1700 106/59 -- -- 61 14 96 % -- 03/18/23 1600 130/66 -- -- 60 12 96 % -- 06/05/23 1538 144/59 36.7 ???C (98 ???F) Temporal 66 19 98 % -- 03/18/23 1400 154/67 -- -- 62 19 98 % -- 03/18/23 1330 (!) 118/91 -- -- 66 16 99 % -- 03/18/23 1300 141/70 -- -- 61 18 98 % -- 03/18/23 1230 151/69 -- -- 60 18 100 % -- 03/18/23 1212 138/73 -- -- 60 17 99 % -- 03/18/23 1130 150/68 36.7 ???C (98 ???F) Temporal 60 15 97 % -- 03/18/23 1115 151/68 -- -- 60 16 97 % -- Physical Examination: GENERAL: AOx3, in no acute distress. HEAD: Atraumatic, normocephalic. EYES: ERICA, EOMI. NECK: No JVD present. CARDIAC: Paced rhythm. No murmur, rubs, or gallops. RESPIRATORY: CTAB, no increased effort of breathing. ABDOMEN: Soft, nontender, nondistended. EXTREMITIES: No lower extremity edema, peripheral pulses are 2+ bilaterally. NEURO: No focal deficits Relevant Lab Results Encounter Date: 03/16/23 Electrocardiogram, 12-lead Result Value Ventricular Rate 60 Atrial Rate 60 MS Interval 192 QRS DURATION 168 QT Interval 474 QTC CALCULATION(BAZETT) 474 P Odessa 30 R-Odessa 5 T Wave Odessa 263 Impression AV dual-paced rhythm Confirmed by Jade JOHNSON SAMER J. ([id number]) on 03/19/2023 9:57:24 AM Lab Results Component Value Date TROPONINI 0.06 (H) 03/17/2023 No echocardiogram results found for the past 12 months No nuclear medicine results found for the past 12 months Relevant Imaging Results Electrocardiogram, 12-lead AV dual-paced rhythm Confirmed by Jade JOHNSON SAMER J. ([id number]) on 03/19/2023 9:57:24 AM 03/18/23 TTE Findings Left Ventricle: The left ventricle is normal size. Global left ventricular systolic function is mildly reduced. The calculated Biplane EF is 48 %. Left ventricular wall thickness is mildly increased. The septum is abnormal in its motion; maybe due to pacemaker. Unable to assess diastolic dysfunction. Concentric left ventricular hypertrophy. Right Ventricle: The right ventricle appears normal in size. Right ventricular systolic function appears preserved. Unable to assess right sided pressures due to lack of measurable tricuspid regurgitation. Left Atrium: The left atrium is normal in size. Right Atrium: The right atrium is normal in size. Mitral Valve: There is nonspecific thickening of the mitral valve leaflet. Mild mitral regurgitation. Aortic Valve: Aortic valve appears normal. No aortic valve regurgitation. Tricuspid Valve: Normal tricuspid valve. No tricuspid regurgitation. Pulmonic Valve: Normal pulmonary valve. No pulmonary regurgitation. Aorta: The aortic root is normal in size. Great Vessels: IVC: The IVC is not visualized. Pericardium: No pericardial effusion. Assessment: Sick sinus syndrome with high degree AV block, LBBB s/p dual chamber [employer] PPM placement. Syncope Compensated HFrEF 55% (prev 25-30%), NYHA class I Paroxysmal atrial flutter - not on AC 2/2 hx of bleeding Essential hypertension Plan: Juan Jose Austin is a 82 y.o. male who presents with sick sinus syndrome and syncope. The patient was scheduled to have an outpatient pacemaker, however he started developing symptoms of dizziness/lightheadedness and had a syncopal episode. He had a PPM placed on 03/18/23 and is recovering well. Occlusive dressing to be removed after 2 weeks. Do not wet the incision for 7 days. No lifting heavy weights using arm on the same side x 3 weeks. Do not lift elbow above the shoulder on the same side for 4-6 weeks. No driving for 1 month. F/u in device clinic 1 week from discharge or sooner for any concerns. Doxycycline 100mg bid for 7 days. CXR post procedure shows no evidence of PTX Optimize GDMT - Start Toprol 25. Continue Hydralazine/Isosorbide. 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 device check today shows normal function and stable lead thresholds Josesito Villanueva NP ASCOM [id number] [facility] 03-19-2023 Note Physical Therapy Physical Therapy Evaluation Patient Name: Juan Jose Austin : 1940 Today's Date: 03/19/2023 Patient is an 82 y./o. male who was scheduled for a pacemaker implantation prior to an unwitnessed syncope episode. Patient was admitted to [facility] on 03/16/2023 and the pacemaker was implanted on 03/18/2023. PMH significant for CKD, CELSO, HF, HLD, high-grade AV block, and GERD w/o esophagitis. General Subjective: Patient found in supine and agreeeable to PT eval. Upon conclusion of eval, patient returned to supine with tray table and call light in reach. 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) Stage 3 chronic kidney disease (CMS/HCC) Essential hypertension High-grade atrioventricular block Past Medical History: Diagnosis Date Atrial flutter (CMS/HCC) Cancer (CMS/HCC) Chronic systolic heart failure (CMS/HCC) CKD (chronic kidney disease), stage III (CMS/HCC) Hematuria Hypertension LBBB (left bundle branch block) Past Surgical History: Procedure Laterality Date BACK SURGERY NEPHRECTOMY Precautions Precautions Medical Precautions: pacemaker, telemetry Post-Surgical Precautions: Pacemaker precautions Pain Pain Assessment Pain Assessment: 0-10 Pain Score: 2 Pain Type: Surgical pain Pain Location: Chest Pain Orientation: Left, Upper (surgical site) Cognition Cognition Overall Cognitive Status: Within Functional Limits Arousal/Alertness: Appropriate responses to stimuli Orientation Level: Oriented X4 Following Commands: Follows all commands and directions without difficulty, Follows multistep commands without difficulty Safety Judgment: Good awareness of safety precautions General Assessment Home Living Home Living Type of Home: House Lives With: Spouse ( recently fractured hip last week and is in detention currently. Pt. reported daughter lives nearby and works from home, so she can assist if needed.) Home Adaptive Equipment: Walker rolling, Cane, Wheelchair-manual, Crutches Home Layout: One level Home Access: Stairs to enter with rails, Ramped entrance Entrance Stairs-Rails: Both Entrance Stairs-Number of Steps: 3 Bathroom Shower/Tub: Walk-in shower (wheelchair accessible) Bathroom Toilet: Handicapped height Bathroom Equipment: Grab bars in shower, Hand-held shower, Raised toilet seat without rails, Grab bars around toilet, Built-in shower seat Prior Level of Function Prior Function Level of [place]: Independent with ADLs and functional transfers Prior Functional Mobility: Independent without device Vision Basic Assessment Activity Tolerance Activity Tolerance Endurance: Stage V Stage V (METs 3.5-4.0) - Standin-10 mins General Assessments Activity Tolerance Endurance: Stage V Stage V (METs 3.5-4.0) - Standin-10 mins Coordination Movements are Fluid and Coordinated: Yes Dynamic Sitting Balance Dynamic Sitting-Balance Support: Feet unsupported Dynamic Sitting Balance-Level of Assistance: Independent Dynamic Standing Balance Dynamic Standing-Balance Support: No upper extremity supported Dynamic Standing Balance-Level of Assistance: Independent Functional Assessments Bed Mobility Bed Mobility: Yes Bed Mobility 1 Bed Mobility From 1: Supine Bed Mobility Type 1: To and from Bed Mobility to 1: Short sit Level of Assistance 1: Independent Bed Mobility Comments 1: able to transfer supine to sit while maintaining pacemaker precautions and without use of bedrails Transfers Transfer: Yes Transfer 1 Transfer From 1: Sit Transfer Type 1: To and from Transfer to 1: Stand Technique 1: Sit to stand Transfer Level of Assistance 1: Independent Ambulation Ambulation: Yes Ambulation 1 Surface 1: Level tile Device 1: No device Assistance 1: Independent Comments/Distance (ft) 1: 200 ft at normal gait speed Stairs Stairs: Yes Stairs Rails 1: Bilateral (Used right hand to hold right rail ascending and left hand to hold left rail descending) Device 1: No device Assistance 1: Independent Extremity Assessments RUE Assessment RUE Assessment: Within Functional Limits LUE Assessment LUE Assessment: Within Functional Limits RLE Assessment RLE Assessment: Within Functional Limits LLE Assessment LLE Assessment: Within Functional Limits Outcome Assessments 6 Clicks (Mobility) Help from another person turning from your back to your side (more content not included)... [facility] 03-19-2023 Note 03/19/23 0972 Admission Assessment Questions Verify insurance with patient Yes Do you understand medical disease or what brought you into the hospital? Yes Who is your current PCP? Yoan Sneed MD Can I schedule a follow up appointment for you at the time of discharge? Yes Do you understand why you are taking your current medications? Yes Are you taking your medications as prescribed? Yes Did patient provide teach back? Yes Living Arrangement (Current/Prior to Hospitalization) Private residence Patient's goal for discharge Discharge home, preferably today Was patient reminded that goal for discharge is 11am? Yes Type of Residence/Post Acute Needs Private residence Is PT/OT appropriate? Yes Is PT/OT ordered? Yes Is SW consult appropriate? No Is SW consult ordered? No Do you understand the benefits of MyChart? Yes Were you able to send link and activate MyChart? No (Status: pending) [facility] 03-18-2023 Note Hospital Medicine Daily Progress Note - 03/18/2023 3:12 PM; Room: [address] [place] [address] Admission: 03/16/2023 10:06 PM; Length of stay: 2 days THE HOSPITALIST TEAM PREFERS TO USE [email or web address] CHAT FOR COMMUNICATION 7AM-7PM. IF I DO NOT RESPOND WITHIN 15 MINUTES, PLEASE PAGE ME/CALL THROUGH THE [employer]EX CASTER. FROM 7PM-7AM, PLEASE PAGE [phone](COVR) Code Status: Full Code Discharge Destination: home Expected Discharge: to be determined Overview Patient is seen for evaluation and management of heart block Subjective seen and evaluated at bedside along with nursing staff. doing okay. status post pacemaker placement. Physical Exam Visit Vitals BP 154/67 Pulse 62 Temp 36.7 ???C (98 ???F) (Temporal) Resp 19 Intake/Output Summary (Last 24 hours) at 03/18/2023 1512 Last data filed at 03/18/2023 1145 Gross per 24 hour Intake 616.34 ml Output 1750 ml Net -1133.66 ml Physical Exam Vitals reviewed. Constitutional: Appearance: Normal appearance. HENT: Head: Normocephalic and atraumatic. Cardiovascular: Rate and Rhythm: Normal rate and regular rhythm. Pulmonary: Effort: Pulmonary effort is normal. Breath sounds: Normal breath sounds. Neurological: General: No focal deficit present. Mental Status: He is alert and oriented to person, place, and time. Psychiatric: Mood and Affect: Mood normal. Estimated body mass index is 30.46 kg/m??? as calculated from the following: Height as of this encounter: 1.626 m (5' 4 ). Weight as of this encounter: 80.5 kg (177 lb 7.5 oz). Active Inpatient Problems Principal Problem: Syncope and collapse Active Problems: High-grade atrioventricular block Assessment and Plan -Symptomatic bradycardia status post pacemaker placed cardiology team on board follow-up on echo today, pending - Elevated troponin likely secondary demand continue to trend - HFrEF CHF: follow-up on echocardiogram BNP 484 resume home dose furosemide 20 mg daily - CKD: patient is around baseline creatinine 2.2 Avoid nephrotoxic medication VTE Prophylaxis: Heparin subcutaneous Scheduled Meds aspirin, 81 mg, oral, Daily atorvastatin, 10 mg, oral, Nightly doxycycline, 100 mg, oral, BID ferrous sulfate, 325 mg, oral, Daily with breakfast heparin (porcine), 5,000 Units, subcutaneous, q12h BRAXTON hydrALAZINE, 25 mg, oral, TID isosorbide dinitrate, 20 mg, oral, TID metoprolol succinate XL, 25 mg, oral, Daily pantoprazole, 40 mg, oral, Daily tamsulosin, 0.4 mg, oral, Daily Pertinent Investigations Hematology: Results from last 7 days Lab Units 03/16/23 2347 WBC AUTO 10*3/uL 4.94 HEMOGLOBIN g/dL 11.8* HEMATOCRIT % 36.4* MCV fL 84.1 PLATELETS AUTO 10*3/uL 172 INR 1.07 Chemistry: Results from last 7 days Lab Units 03/17/23 0439 03/16/23 2347 SODIUM mmol/L 138 140 POTASSIUM mmol/L 4.2 4.3 CHLORIDE mmol/L 108* 110* CO2 mmol/L 20* 24 BUN mg/dL 42* 40* CREATININE mg/dL 2.26* 2.26* GLUCOSE mg/dL 158* 110* MAGNESIUM mg/dL -- 1.7* CALCIUM mg/dL 9.0 8.7 PHOSPHORUS mg/dL -- 3.7 Results from last 7 days Lab Units 03/17/23 0439 03/16/23 2347 AST U/L 17 15 ALT U/L 14 12 ALK PHOS U/L 61 58 BILIRUBIN TOTAL mg/dL 0.6 0.4 Historical Values: (Includes values prior to this admission) Lab Results Component Value Date TSH 2.52 03/16/2023 HDL 40 03/16/2023 LDL 84 03/16/2023 No results found for: [id number], IRON, TIBC, C3, C4, KODY, CANCA, ASO, PSA, CEA, CA125, CA199, AFP, CA153 Imaging Electrophysiology procedure Narrative: Images from the original result were not included. DUAL CHAMBER PACEMAKER IMPLANT PROCEDURE NOTE DATE OF PROCEDURE: 03/18/2023 PERFORMING PHYSICIAN: Dr. Jimbo Bautista TRAFFIC CHIEF: Dr John Quiroga CONSENT: Patient LOCATION: EP Lab PROCEDURE PERFORMED: 1. Implantation of pacemaker ([employer]) 2. Ultrasound guided venous access INDICATIONS: 1. High degree AV block (Type II 2nd degree - 3rd degree). 2. Bradycardia. 3. Hypotension. PROCEDURAL SEDATION: Versed and Fentanyl. Moderate sedation was administered by the sedation nurse under my supervision and noted in the CVL log. Intraprocedural face to face sedation time: 62min. Monitoring: Cardiac telemetry, Blood pressure, continuous pulse oxymetry. FLUOROSCOPY TIME: 5min 48sec / 27mGray EBL: 15cc SPECIMEN REMOVED: None INDICATION: 82 y.o. male who presents to the EP lab for a permanent pacemaker implantation. He was admitted to the hospital with an unwitnessed syncope episode. He follows with electrophysiology outpatient and was scheduled to have a permanent pacemaker, however he had felt lightheadedness/dizziness and had an unwitnessed syncopal episode and was admiited to [facility]. On evaluation, the patient was having heart rates in the 20s to 30s with symptoms and transferred to [facility]. He was started on a dopamine drip for bradycardia and it elevated his heart rates into the 40s. PROCEDURAL DETAILS: (more content not included)... [facility] 03-18-2023 Note Attestation signed by Brandie Michel MD at 03/18/2023 12:51 PM I did not personally examine the patient. I discussed the case with the resident/fellow Dr Blas. Teaching Physician's Revisions: Brandie Michel MD, MPH, [facility], [facility], [facility] Interventional Cardiology Pager Email: [email or web address] Cardiology Progress Note Subjective Subjective: Juan Jose Austin is a 82 y.o. male who was seen and evaluated at bedside this morning. Plan for PPM today. Objective Objective: Patient Vitals for the past 24 hrs: BP Temp Temp src Pulse Resp SpO2 Weight 03/18/23 1212 138/73 -- -- 60 17 99 % -- 03/18/23 1130 150/68 36.7 ???C (98 ???F) Temporal 60 15 97 % -- 03/18/23 1115 151/68 -- -- 60 16 97 % -- 03/18/23 1106 152/73 -- -- 60 16 96 % -- 03/18/23 1042 127/71 -- -- 60 12 97 % -- 03/18/23 0840 -- -- -- -- -- 100 % -- 03/18/23 0839 155/57 -- -- (!) 30 16 100 % -- 03/18/23 0739 138/57 36.8 ???C (98.2 ???F) Temporal (!) 34 18 97 % -- 03/18/23 0717 142/53 36.8 ???C (98.2 ???F) Temporal (!) 33 20 98 % -- 03/18/23 0700 125/50 -- -- (!) 39 13 99 % -- 03/18/23 0622 -- -- -- -- -- -- 80.5 kg (177 lb 7.5 oz) 03/18/23 0400 (!) 120/41 -- -- (!) 31 16 96 % -- 03/18/23 0000 (!) 140/49 -- -- (!) 34 10 97 % -- 03/17/23 2200 (!) 143/48 -- -- (!) 34 14 97 % -- 03/17/23 2000 134/50 -- -- (!) 34 12 97 % -- 03/17/23 1700 139/58 -- -- (!) 43 15 96 % -- 03/17/23 1600 128/57 36.6 ???C (97.9 ???F) -- (!) 45 14 97 % -- 03/17/23 1500 128/61 -- -- (!) 47 16 95 % -- 03/17/23 1400 122/51 -- -- (!) 41 19 98 % -- 03/17/23 1300 131/62 -- -- 51 19 -- -- Physical Examination: GENERAL: AOx3, in no acute distress. HEAD: Atraumatic, normocephalic. EYES: ERICA, EOMI. NECK: No JVD present. CARDIAC: Paced rhythm. No murmur, rubs, or gallops. RESPIRATORY: CTAB, no increased effort of breathing. ABDOMEN: Soft, nontender, nondistended. EXTREMITIES: No lower extremity edema, peripheral pulses are 2+ bilaterally. NEURO: No focal deficits Relevant Lab Results Encounter Date: 03/16/23 Electrocardiogram, 12-lead Result Value Ventricular Rate 39 Atrial Rate 39 MS Interval 342 QRS DURATION 156 QT Interval 504 QTC CALCULATION(BAZETT) 405 P Odessa 17 R-Odessa -84 T Wave Odessa 10 Impression Marked sinus bradycardia with 1st degree A-V block Left axis deviation Right bundle branch block Inferior infarct , age undetermined Anterior infarct , age undetermined Abnormal ECG No previous ECGs available Confirmed by Jimbo Bautista ([id number]) on 03/17/2023 4:38:19 PM Lab Results Component Value Date TROPONINI 0.06 (H) 03/17/2023 No echocardiogram results found for the past 12 months No nuclear medicine results found for the past 12 months Relevant Imaging Results Electrophysiology procedure Narrative: Images from the original result were not included. DUAL CHAMBER PACEMAKER IMPLANT PROCEDURE NOTE DATE OF PROCEDURE: 03/18/2023 PERFORMING PHYSICIAN: Dr. Jimbo Bautista TRAFFIC CHIEF: Dr John Quiroga CONSENT: Patient LOCATION: EP Lab PROCEDURE PERFORMED: 1. Implantation of pacemaker ([employer]) 2. Ultrasound guided venous access INDICATIONS: 1. High degree AV block (Type II 2nd degree - 3rd degree). 2. Bradycardia. 3. Hypotension. PROCEDURAL SEDATION: Versed and Fentanyl. Moderate sedation was administered by the sedation nurse under my supervision and noted in the CVL log. Intraprocedural face to face sedation time: 62min. Monitoring: Cardiac telemetry, Blood pressure, continuous pulse oxymetry. FLUOROSCOPY TIME: 5min 48sec / 27mGray EBL: 15cc SPECIMEN REMOVED: None INDICATION: 82 y.o. male who presents to the EP lab for a permanent pacemaker implantation. He was admitted to the hospital with an unwitnessed syncope episode. He follows with electrophysiology outpatient and was scheduled to have a permanent pacemaker, however he had felt lightheadedness/dizziness and had an unwitnessed syncopal episode and was admiited to [facility]. On evaluation, the patient was having heart rates in the 20s to 30s with symptoms and transferred to [facility]. He was started on a dopamine drip for bradycardia and it elevated his heart rates into the 40s. PROCEDURAL DETAILS: : TPatient was brought to the EP lab in the post absorptive state. A procedural pause was performed identifying the patient, the procedure to be performed and the site of implant. The left chest was prepped and draped in the usual sterile fashion. Preoperative antibiotics IV was administered. Patient was placed in trendelenberg position and ultrasound was used to evaluate the patency of left axillary vein and for venous access. Patient was very restless and trying to move while achieving access. Left axillary venous access was o (more content not included)... [facility] 03-18-2023 Note Transport at bedside to take pt down to xray- typically xray is not completed until the AM after pacemaker insertion- Called Dr. Blas bulk pallet builder- okay to send down now. [facility] 03-18-2023 Note Patient back from EP lab with new pacer and hooked up to monitor- vitals obtained. Patient has a few medications auto held- all from Dr. Blas with cardiology. RN called bulk pallet builder at this time- continue to hold meds- only giving asa, iron tablet, and flomax at this time. Hold heparin subcutaneous and all other auto held medications- will re-evaluate in the afternoon. RN to follow up. [facility] 03-18-2023 Note DUAL CHAMBER PACEMAK ER IMPLANT PROCEDURE NOTE DATE OF PROCEDURE: 03/18/2023 PERFORMING PHYSICIAN: Dr. Jimbo Bautista TRAFFIC CHIEF: Dr John Quiroga CONSENT: Patient LOCATION: EP Lab PROCEDURE PERFORMED: 1. Implantation of pacemaker ([employer]) 2. Ultrasound guided venous access INDICATIONS: 1. High degree AV block (Type II 2nd degree - 3rd degree). 2. Bradycardia. 3. Hypotension. PROCEDURAL SEDATION: Versed and Fentanyl. Moderate sedation was administered by the sedation nurse under my supervision and noted in the CVL log. Intraprocedural face to face sedation time: 62min. Monitoring: Cardiac telemetry, Blood pressure, continuous pulse oxymetry. FLUOROSCOPY TIME: 5min 48sec / 27mGray EBL: 15cc SPECIMEN REMOVED: None INDICATION: 82 y.o. male who presents to the EP lab for a permanent pacemaker implantation. He was admitted to the hospital with an unwitnessed syncope episode. He follows with electrophysiology outpatient and was scheduled to have a permanent pacemaker, however he had felt lightheadedness/dizziness and had an unwitnessed syncopal episode and was admiited to [facility]. On evaluation, the patient was having heart rates in the 20s to 30s with symptoms and transferred to [facility]. He was started on a dopamine drip for bradycardia and it elevated his heart rates into the 40s. PROCEDURAL DETAILS: : TPatient was brought to the EP lab in the post absorptive state. A procedural pause was performed identifying the patient, the procedure to be performed and the site of implant. The left chest was prepped and draped in the usual sterile fashion. Preoperative antibiotics IV was administered. Patient was placed in trendelenberg position and ultrasound was used to evaluate the patency of left axillary vein and for venous access. Patient was very restless and trying to move while achieving access. Left axillary venous access was obtained using modified seldinger technique using a 5 Syrian micro-puncture needle on two occasions and 0.35 wires were placed. Local infiltration of 1% Lidocaine was performed, and an incision was created in the left upper chest. Dissection was then performed using cautery down to the fascial plane above the muscle. A subpectoral pocket was planned as patient had very limited subcutaneous tissues. The belly of the pectoralis was identified and with gentle blunt dissection a small pocket was created for the device. 9/6 Syrian Safesheaths were placed over the wire. An active fixation [employer] pacing lead was then delivered through the SPCC sheath via 9Fsheath to the right ventricle. After confirmation of lead position on orthogonal views (HESTER and CZECH) to confirm septal position, the screw was activated, and the lead was placed in the right ventricular mid cavity towards the septum. After confirmation of good sensing parameters, injury pattern and pacing thresholds, 10V pacing was done and no diaphragmatic stimulation was noted. It was then secured in the pocket using three 1-0 Silk sutures. Then an active fixation [employer] lead was delivered through the 6Fsheath to the right atrial appendage. After confirmation of lead position on orthogonal views (HESTER and CZECH), the screw was activated. After confirmation of good sensing parameters, injury pattern and pacing thresholds, the lead was then tested using Lambert's maneuver. 10V pacing was done and no diaphragmatic stimulation was noted. It was then secured in the pocket using three 1-0 Silk sutures. Pocket hemostasis was secured, and it was then copiously and vigorously irrigated with antibiotic solution. The leads were attached to the generator and then wrapped under the device and the device was tacked to underlying muscle and placed in the pocket. The pocket was closed in layers: subcutaneous layer using 2-0 Vicryl; skin using 3-0 absorbable monofilament suture. Glue was applied and Tegaderm dressing was placed on top. Lead parameters were then rechecked through the device as noted below. The patient was returned to the short stay room for post procedural observation. No immediate procedural complications were noted. POST PROCEDURE EXAM: Patient was hemodynamically stable. COMPLICATIONS: None. IMPRESSION: 1. Successful dual chamber pacemaker with excellent pacing and sensing parameters. RECOMMENDATIONS: 1. Occlusive dressing to be removed after 2 weeks. 2. Do not wet the incision for 7 days. 3. No lifting heavy weights using arm on the same side x 3weeks 4. Do not lift elbow above the shoulder on the same side for 4-6 weeks. 5. No driving for 1 month. 6. F/u in device clinic 1 week from discharge or sooner for any concerns. 7. Doxycycline 100mg bid. Jimbo Bautista MD Cardiac Electrophysiology [facility] 03-18-2023 Note Patient: Juan Jose Austin Procedure Information Date/Time: 03/18/23 1500 Procedure: Implant PPM Location: [facility] AUDIO TECHNICIAN 1 EP / [facility] HV VASCULAR LAB (Cath) Providers: Jimbo Bautista MD Clinical information reviewed: Allergies Meds Physical Exam Airway Mallampati: II TM distance: >3 FB Neck ROM: full Cardiovascular Rhythm: regular (+) murmur (-) peripheral edema, JVD Dental (+) upper dentures, lower dentures Pulmonary Breath sounds clear to auscultation Abdominal Abdomen: soft Bowel sounds: normal Anesthesia Plan ASA 4 (Moderate sedation + local anesthesia ) Anesthetic plan and risks discussed with patient. Use of blood products discussed with patient who consented to blood products. Plan discussed with attending. Additional Equipment Requests [facility] 03-18-2023 Note Patient down to EP l ab for pacemaker at this time. [facility] 03-18-2023 Note RN called daughter a t this time-per EP lab and cardiology- moving up patient first for pacer and coming to grab patient in about a half hour. Daughter states she will make it up as soon as she can. [facility] 03-18-2023 Note RN called cardiology at this time regarding orders for dopamine gtt and patient's HR. Orders are to titrate for BP not for HR. Patient's heart rate this morning has ranged from high 20's to high 30's- averaging around 35 BPM. bulk pallet builder said do not titrate gtt- keep at 5 mcg/kg/min at this time and are trying to move patient up on the list for a pacer. RN to relay message to patient and to call if moving up in time. [facility] 03-17-2023 Note Hospital Medicine Daily Progress Note - 03/17/2023 10:00 AM; Room: [address] [place] [address] Admission: 03/16/2023 10:06 PM; Length of stay: 1 days THE HOSPITALIST TEAM PREFERS TO USE [email or web address] CHAT FOR COMMUNICATION 7AM-7PM. IF I DO NOT RESPOND WITHIN 15 MINUTES, PLEASE PAGE ME/CALL THROUGH THE LATEX CASTER. FROM 7PM-7AM, PLEASE PAGE [phone](COVR) Code Status: Full Code Discharge Destination: home Expected Discharge: to be determined Overview Patient is seen for evaluation and management of symptomatic bradycardia Subjective seen and evaluated at bedside today, no significant overnight events, laying in bed comfortably, denies chest pain and shortness of breath. Physical Exam Visit Vitals BP (!) 130/49 Pulse (!) 41 Temp 36.6 ???C (97.8 ???F) (Temporal) Resp 15 Intake/Output Summary (Last 24 hours) at 03/17/2023 1000 Last data filed at 03/17/2023 0920 Gross per 24 hour Intake 849.5 ml Output 500 ml Net 349.5 ml Physical Exam Vitals reviewed. Constitutional: Appearance: Normal appearance. HENT: Head: Normocephalic and atraumatic. Mouth/Throat: Mouth: Mucous membranes are moist. Cardiovascular: Rate and Rhythm: Normal rate and regular rhythm. Pulmonary: Effort: Pulmonary effort is normal. Breath sounds: Normal breath sounds. Neurological: General: No focal deficit present. Mental Status: He is alert and oriented to person, place, and time. Psychiatric: Mood and Affect: Mood normal. Estimated body mass index is 30.88 kg/m??? as calculated from the following: Height as of this encounter: 1.626 m (5' 4 ). Weight as of this encounter: 81.6 kg (179 lb 14.3 oz). Active Inpatient Problems Principal Problem: Syncope and collapse Assessment and Plan - symptomatic bradycardia currently on dopamine infusion patient alert oriented x4 blood pressure stable for now cardiology team on board plan for transvenous pacemaker placement today avoid AV charo blocking agents - Elevated troponin likely secondary demand continue to trend - HFrEF CHF: follow-up on echocardiogram BNP 484 we will resume home dose furosemide 20 mg daily - CKD: patient is around baseline creatinine 2.2 Avoid nephrotoxic medication VTE Prophylaxis: Heparin subcutaneous Scheduled Meds amLODIPine, 10 mg, oral, Daily aspirin, 81 mg, oral, Daily atorvastatin, 10 mg, oral, Nightly ferrous sulfate, 325 mg, oral, Daily with breakfast heparin (porcine), 5,000 Units, subcutaneous, q12h BRAXTON hydrALAZINE, 25 mg, oral, TID isosorbide dinitrate, 20 mg, oral, TID pantoprazole, 40 mg, oral, Daily tamsulosin, 0.4 mg, oral, Daily DOPamine, 5 mcg/kg/min, Last Rate: 5 mcg/kg/min (03/17/23 0934) Pertinent Investigations Hematology: Results from last 7 days Lab Units 03/16/23 2347 WBC AUTO 10*3/uL 4.94 HEMOGLOBIN g/dL 11.8* HEMATOCRIT % 36.4* MCV fL 84.1 PLATELETS AUTO 10*3/uL 172 INR 1.07 Chemistry: Results from last 7 days Lab Units 03/17/23 0439 03/16/23 2347 SODIUM mmol/L 138 140 POTASSIUM mmol/L 4.2 4.3 CHLORIDE mmol/L 108* 110* CO2 mmol/L 20* 24 BUN mg/dL 42* 40* CREATININE mg/dL 2.26* 2.26* GLUCOSE mg/dL 158* 110* MAGNESIUM mg/dL -- 1.7* CALCIUM mg/dL 9.0 8.7 PHOSPHORUS mg/dL -- 3.7 Results from last 7 days Lab Units 03/17/23 0439 03/16/23 2347 AST U/L 17 15 ALT U/L 14 12 ALK PHOS U/L 61 58 BILIRUBIN TOTAL mg/dL 0.6 0.4 Historical Values: (Includes values prior to this admission) Lab Results Component Value Date TSH 2.52 03/16/2023 HDL 40 03/16/2023 LDL 84 03/16/2023 No results found for: [id number], IRON, TIBC, C3, C4, KODY, CANCA, ASO, PSA, CEA, CA125, CA199, AFP, CA153 Imaging Electrocardiogram, 12-lead Marked sinus bradycardia with 1st degree A-V block Left axis deviation Right bundle branch block Inferior infarct , age undetermined Anterior infarct , age undetermined Abnormal ECG No previous ECGs available XR chest 1 view Narrative: CHEST 1 VIEW HISTORY: Syncope COMPARISON: None FINDINGS: No focal airspace disease, pulmonary edema, pleural effusions, or pneumothorax. Normal cardiomediastinal silhouette. Impression: No acute cardiopulmonary disease. Electronically signed: Jalen Sung. Discharge Planning Signed Miguel San MD Hospital Medicine 03/17/2023 10:00 AM [facility] 03-17-2023 Note . Hospital Medicine History and Physical 03/16/2023 11:16 PM THE HOSPITALIST TEAM PREFERS TO USE [employer] FOR COMMUNICATION 7AM-7PM. IF I DO NOT RESPOND WITHIN 15 MINUTES, PLEASE PAGE ME/CALL THROUGH THE LATEX CASTER. FROM 7PM-7AM, PLEASE PAGE [phone](COVR) Chief Complaint No chief complaint on file. History of Present Illness Juan Jose Austin is an 82 y.o. male with Syncope. This is an 82 years old gentleman with a medical history of hypertension, atrial flutter, CHF/HFrEF with a EF of 25 to 30% followed by repeated TTE in February 2022 showing improvement of EF to 55%, known LBBB,, syncopal episod CKD. Patient came into the [facility] ER as a direct admit for cardiology team for syncopal episode. The patient mentioned that last week was standing at the grill and woke up on the ground- this was unwitnessed, he is not sure how long he was out and and denied loss of bowel or bladder. This was the first episode like this where he lost consciousness. Denied any symptoms prior to passing out. He currently has stopped driving. Admitting the patient to the stepdown unit to telemetry monitoring consulting cardiology team sending for stat CBC, CMP, TSH with reflex T4 A1c and lipid panel ordered as well as a TTE and we will follow-up with the team recommendation. Checking orthostatic parameters. Because the patient was becoming bradycardic to the level of 20s and when he is standing up he was dizzy and lightheaded we discussed with the cardiology team and we agreed on starting him on dopamine drip with a rate of 5 mics with a goal of heart rate of 50s. Review of System and Physical Exam Temp: [36.6 ???C (97.8 ???F)] 36.6 ???C (97.8 ???F) Heart Rate: [37] 37 Resp: [17] 17 BP: (156)/(69) 156/69 Physical Exam Vitals and nursing note reviewed. Constitutional: Appearance: Normal appearance. He is normal weight. HENT: Head: Normocephalic and atraumatic. Right Ear: Tympanic membrane, ear canal and external ear normal. Left Ear: Tympanic membrane, ear canal and external ear normal. Nose: Nose normal. Mouth/Throat: Mouth: Mucous membranes are moist. Pharynx: Oropharynx is clear. Eyes: Conjunctiva/sclera: Conjunctivae normal. Pupils: Pupils are equal, round, and reactive to light. Cardiovascular: Rate and Rhythm: Regular rhythm. Bradycardia present. Pulmonary: Effort: Pulmonary effort is normal. Abdominal: General: Abdomen is flat. Bowel sounds are normal. Musculoskeletal: General: Normal range of motion. Cervical back: Normal range of motion. Skin: General: Skin is warm. Capillary Refill: Capillary refill takes 2 to 3 seconds. Neurological: General: No focal deficit present. Mental Status: He is alert. Mental status is at baseline. Psychiatric: Mood and Affect: Mood normal. Thought Content: Thought content normal. Judgment: Judgment normal. Review of Systems Constitutional: Positive for activity change and fatigue. Neurological: Positive for dizziness. Problem List Patient Active Problem List Diagnosis Date Noted Syncope and collapse 03/15/2023 CKD (chronic kidney disease) 12/03/2022 Gross hematuria 11/14/2022 Obesity, Class I, BMI 30-34.9 03/27/2022 Malignant neoplasm of urinary bladder ([facility]) 11/10/2021 CELSO (acute kidney injury) ([facility]) 11/01/2021 Hypertensive heart disease with heart failure ([facility]) 07/11/2021 Hydronephrosis 09/30/2019 Ulcerative pancolitis ([facility]) 08/11/2019 Stage 3 chronic kidney disease ([facility]) 08/11/2019 Gastro-esophageal reflux disease without esophagitis 08/10/2019 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 ([facility]) 07/29/2019 Hypertensive disorder 11/06/2018 Acquired absence of kidney 07/18/2018 Malignant neoplasm of ureter ([facility]) 07/07/2018 HLD (hyperlipidemia) 09/04/2017 Essential hypertension 09/04/2017 High-grade atrioventricular block 03/15/2023 Assessment and Plan #Symptomatic bradycardia #Syncopal episode: -Admitting to stepdown unit -Telemetry monitoring -Started on IV dopamine 5 mics/goal of heart rate in 50s -Fall and seizure precautions -Consulting cardiology team for further recommendation -Trending troponin -TSH A1c lipid panel ordered -Please avoid any calcium channel constantin or beta-constantin/holding home metoprolol #HFrEF CHF: -Corrected EF from 25 to 55% -Repeating TTE -CHF core measures ordered #CKD: -Avoid nephrotoxic medication #GI prophylaxis: PPI #DVT prophylaxis: Lovenox VTE Prophylaxis: Lovenox ----- Focus of this inpatient stay will remain on problems that need acute care setting for care. We will review available studies and will order additional labs, imaging and other studies as appropriate. As needed medicines are ordered as appropriate. VTE Prophylaxis will be ordered as appropriate. Please see above for management plan for individual hospital problems. Home medications are reviewed and will be continued as appropriate. Pa (more content not included)... [facility] 03-15-[address] Andreina hassan and he recommended perm Pacemaker- orders sent and d/w pt and daughter= provided pt education pamphlet for Pacemaker that reviewed indications, risks vs benefits of procedure and pt voiced understanding and is agreeable with proceeding with PPM [facility] 03-15-2023 Note Hypertension is cont rolled Continue med regime [facility] 03-15-2023 Note Noted bradycardia, w ith 1st AV block, 2:1 AV block, NSVT 3 and 5 beat run with syncopal episode and near syncopal episodes. Pt is unsure if he has stopped toprol- therefore d/w them to stop Toprol. D/W Dr Bautista and plan for perm pacemaker implant MONTRELL in light of syncope [facility] 03-15-2023 Note [facility] CARDIOLOGY PROGR ESS NOTE HPI: Juan Jose Austin is a 82 y.o. male here for syncope, abnormal holter monitor- bradycardia, AV block, NSVT. This past Saturday he was standing at the grill and woke up on the ground- this was unwitnessed, he is not sure how long he was out, and denied loss of bowel or bladder. States this was the first episode like this where he lost consciousness. Denied any symptoms prior to passing out. He currently has stopped driving. Last Saturday and Saturday he had an episode where he woke up in bed and felt like I was not all here and was unable to control my movements- couldn't move the covers off of me. He was evaluated in ED at [facility], and Dr Sneed had a 7 day holter monitor placed- and results were reviewed in ED with pt and daughter. Pt is not sure if he has stopped Metoprolol or not today. Katruda- treatments q 4 weeks Review of Systems Constitutional: Negative. Respiratory: Negative. Cardiovascular: Negative. Neurological: Positive for syncope. All other systems reviewed and are negative. 03/05/23 ED report Previous HPI per Dr Castaneda HPI Mr Juan Jose Austin is seen in follow up. He is a 82 yo man. He was initially seen on 04/22/2018 as a new patient. Visit of 04/22/2018: He is planned for cystoscopy and other urological procedure. He has history of bladder cancer and recent CT scan showed a mass for which he will undergo the procedure. He developed chest pain about 10 days ago while watching TV. He says it was sharp pain, in the mid chest, up and down the chest area. Lasted about 1.5 hours. He says it was not related to breathing. No recurrence since then. He has dyspnea on exertion, moderate, relieved by rest. He was evaluated [facility] ED and his CBC, BMP, BNP, Liver enzymes, 2 sets of troponin were all negative. Past testing: Echocardiogram 12/2014: Normal LV systolic function. Mild diastolic dysfunction. No valvular dysfunction. RVSP 31 mmHg. Stress test 12/2014: mostly fixed but minimally reversible inferior/inferolateral defect consistent with artifact. Normal ventricular systolic function. Review of his recent ECGs on 04/13/2018 and 03/2018 showed sinus rhythm with possible LBBB. Update 05/05/2018: He is here to follow up on symptoms and testing. Since last visit he has not had any chest pain. He still has dyspnea on exertion, moderate, relieved by rest. He also has bendopnea. Cardiac testin. Echocardiogram 04/29/2018: Global left ventricular systolic function is normal (Visually estimated EF 60%). The left ventricle is normal size. Left ventricular wall thickness is normal. No regional wall motion abnormality. Grade 1, mild diastolic dysfunction (abnormal relaxation). Normal right ventricular systolic function. The right ventricle is mildly enlarged. The left atrium is mildly enlarged. Unable to assess right sided pressures due to lack of measurable tricuspid regurgitation. No previous study to compare to. 2. Treadmill Stress test 04/29/2018: Normal myocardial perfusion. No ischemia. Normal wall motion. Mildly reduced LV systolic function with EF 45%. Update 11/06/2018: He is seen in follow up. He underwent urologic surgery (including left nephrectomy). He did well with that. He is following with urology and nephrology. His renal function has worsened after the nephrectomy and his Cr stabilized at 1.8 in 09/2018. His blood pressure is better after adding amlodipine. Update 05/25/2019: He is in follow-up. He has no chest pain. he has mild shortness of breath on activity but is not limiting him. He says he can do the things he wants to do. No leg swelling. He has stopped triamterene/HCTZ due to no refills. He has dizziness occasionally. BMP 11/17/2018: Creatinine 1.95, BUN 34, potassium 4.0. Visit of 07/17/2021: He is seen in follow-up. I have not seen him for more than 2 years. Recently he has been having excessive symptoms of shortness of breath on exertion. NYHA class III. He has bilateral lower extremity edema. He denies chest pain. No palpitations. No syncope. Recent testing included a stress test that showed significantly reduced left-ventricular systolic function with an ejection fraction of 37%. No ischemia was found. In addition he had elevated BNP. Stress test 06/27/2021: No acute or reversible ischemia, moderate-marked decreased perfusion of the inferior wall from base to apex favoring remote infarction. Diaphragmatic attenuation artifact is not completely excluded. Marked ventriculomegaly, 232 mL. Severe global hypokinesis with no movement of the apex. Markedly low ejection fraction, 37%. ECG shows left bundle branch block. Blood testing 06/27/2021: Hemoglobin 13.8, platelets 220, BUN 22, creatinine 1.63, potassium 3.9, LFTs within normal limits, cholesterol 137, HDL 47, triglycerides 86, LDL 73, NT proBNP 4459, hemoglobin A1c 5.2. Visit of 08/29/2021: He is seen in follow-up. At last visi (more content not included)... [facility] 03-15-2023 Note Patient here for [facility] for syncopal event. He did wear Holter monitor in January 2023. Daughter states he's had a lot of SOB and lightheadedness. He was outside grilling on Saturday when he passed out with LOC. Says he opened the grill and then suddenly woke up on the ground. Review of Systems Cardiovascular: Positive for dyspnea on exertion, leg swelling (minimal) and syncope. Neurological: Positive for light-headedness. All other systems reviewed and are negative. 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 Pt reports that his dyspnea is only on exertion. Denies feeling short of breath at rest. Pt was outside working in his flower beds and mulching during our call. Margot So RN * Telephone Encounter - Mary Jo Mendez - 01/31/2023 8:[address] Antwan Johnson would like you to call Juan Jose next week. 02-07 to check symptoms. Thank you documented in this encounterOur [facility]-20-2023 NoteHNO ID: [id number] Author: Padmini Mike RN Service: ? Author Type: Registered Nurse Type: Progress Notes Filed: 01/31/2023 10:35 AM Note Text: No labs today per Dr. Prado. Padmini Mike RNMetro[facility]04-20-2023 NoteMet[facility]04-20-2023 History of Present illness Narrative* Padmini Mike RN - 01/31/2023 9:22 AM EDT No labs today per Dr. Prado. Padmini Mkie RN documented in this encounterOur [facility] Of [facility]04-20-2023 Instructions* Patient Instructions* Caesar Prado MD - 01/31/2023 8:50 AM EDT Resume C2 pembrolizumab today. RTC in 3 weeks Ask Ms. So to call next week to heck symptoms documented in this encounterOur [facility]04-20-2023 History of Present illness Narrative* Caesar Prado MD - 01/31/2023 8:44 AM EDT Images from the original note were not included. 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 December 05, 2011 bladder washings with rare atypical cells January 10, 2012 left kidney biopsies and renal washings without evidence of malignancy April 05, 2016 urine and renal washing cytology notable for atypical cells May 10, 2016 left kidney and bladder wall biopsies with chronic inflammation March 03, 2018 urine cytology consistent with high grade urothelial carcinoma; UroVysion FISH was positive for aneuploidy in 64 cells and del 9p21 in 8 cells May 15, 2018 Cystoscopy with biopsies consistent with 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 Tumor ablated with laser. Right ureteral washings with atypical cells.One dose of mitomycin administered. September 30, 2019 Cystourethroscopy with a low-grade appearing papillary tumor in the right lower pole. Biopsies not possible. 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 Urine cytology positive for high grade urothelial carcinoma October 26, 2021 endoscopic ablation renal pelvis mass biopsy consistent with high grade papillary urothelial carcinoma. No invasion noted. Tumor was not able to be completely resected. Procedure complicated by postoperative CELSO Recommendations to proceed with trial of chemotherapy per tumor board with the goal of shrinking the tumor to allow for endoscopic procedure November 27, 2021 started carboplatin AUC 5 and gemcitabine 1000 mg/m2 day 1 and 8; dose reduced by20% for grade 2 anemia for cycle 4 January 02, 2023 started pembrolizumab 01/23/2023 - progressive dyspnea held Pembro and started on 5 days of steroids. Updated Visit, January 31, 2023: Dyspnea resolved - CT shows resolution of bibasilar pleural effusions. Doing well and will continuetreatment. Updated Visit, January 23, 2023: Juan Jose Austin returns for follow-up and treatment. He received cycle 1 pembrolizumab on 01/02/2023. He states that shortly after treatment he developed shortness of breath with exertion. He is still experiencing shortness of breath. He has intermittent lightheadedness when he takes his blood pressure medication which lasts for 5 to 6 minutes. He denies any diarrhea. His urine is clear. He denies fevers, chills and signs/symptoms of infection. No bleeding or abnormal bruising. Updated Visit, January 02, 2023: Juan Jose returns today to start treatment with Keytruda. He is doing well and has considered other options being close to him because of his age and resulting anuria. He is safe to proceed. Consent was obtained. Education completed risks and benefits were reviewed with him. Expected adverse events were also reviewed. Updated Visit, December 24, 2022: Spoke with Juan Jose and with daughter Britt - they could see me but their video feed was down. Given his comorbidities he is a poor candidate for chemotherapy, pokagon based or otherwise. Surgery would yield him to be anuric and anephric committing him to lifelong dialysis which would not be desirable. Therefore will employ PD-L1 nhibitor for primary treatment. He is agreeable. NGS was unrevealing Updated Visit, November 26, 2022: Here with Daughter Britt Has persisting disease Concerned that he has need for systemic therapy No invasive disease is noted right now - however he is not a good candidate to leave anephric and require dialysis or transplant given his age No pain. Call in 2 weeks Denies any fevers, chills, cough or shortness of breath. ROS is negative except that mentioned in HPI PAST MEDICAL SURGICAL FAMILY AND SOCIAL HISTORY: He has a history of -Chronic kidney disease, stage 3 -Solitary right kidney -Hypertension -Hyperlipidemia -Benign Prostatic Hypertrophy -Low EF 40-45% with hypokinesis on ECHO in October 2021 Previous surgeries include back surgery, carpal tunnel repair, hernia repair and left-sided nephroureterectomy. Family history of significant for lung cancer in father and breast cancer in mother. Hehas a 40 pack year smoking history; quit in in 1980s. He has 4 children, one of which from multiple blood clots. 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 MEDICATIONS AND ALLERGIES: Reviewed PHYSICAL EXAM BP 142/59 Pulse (!) 59 Temp 36.4 C (97.5 F) (Temporal) Resp 16 Ht 162.6 cm (5' 4.02 ) Wt 82.2 kg (181 lb 3.2 oz) SpO2 97% BMI 31.09 kg/m Exam limited to gross visualization where appropriate due to COVID-19. Gen.: This is an age-appropriate patient in no acute distress. Head: Appears atraumatic with no visible lesions. Eyes: Pupils equally round and reactive to light, extraocular muscles are intact. Neck: Supple. Mouth: Masked. Respiratory: Appears to be respiring comfortably. Neurologic: Nonfocal to gross visualization. Alert and oriented 3. Psychiatric: No evidence of inappropriate anxiety or depression. Skin: Visible areas of skin without rash, lesions, wounds or petechiae. LABORATORY, IMAGING AND PATHOLOGY CBC and CMP reviewed Hemoglobin (g/dL) Date Value 01/23/2023 12.4 12/04/2021 11.2 Hematocrit (%) Date Value 01/23/2023 37.6 12/04/2021 34.2 WBC (k/uL) Date Value 01/23/2023 6.14 12/04/2021 2.50 Platelet Count (k/uL) Date Value 01/23/2023 202 12/04/2021 129 2D echocardiogram (scanned) with EF of 40-45% in October 2021 ASSESSMENT AND RECOMMENDATIONS 82 male with right solitary kidney and recurrent tract urothelial carcinoma Patient was diagnosed with a left-sided upper tract urothelial carcinoma for which he underwent a left nephroureterectomy in 2017. At that point, he was evaluated by medical oncology and given the option of doing adjuvant cisplatin- based chemotherapy. Patient had declined this option at that time. In 2019, he had a recurrence of a noninvasive papillary high-grade urothelial carcinoma in the rightrenal pelvis for which he underwent laser ablation. Most recently, based on CT urogram done in September 2021, cytology and ureteroscopy he had local recurrence of a noninvasive papillary high-grade urothelial carcinoma, for which he underwent endoscopic ablation that was incomplete in October 2021. Given his unique situation and in order to avoid nephroureterectomy, we proceeded with a trial of gemcitabine and carboplatin (patient is not a cisplatin candidate given low EF and CKD). Patient has completed 4 cycles of gemcitabine and carboplatin. Side effects of included grade 2 myelosuppression needing dose reduction and grade 2 CINV and diarrhea. After last infusion, he had a spell of dizziness resulting in a fall and head injury. I have discussed to hold off on any further chemotherapy at this time. With recent dose reduction and delays, I do not think the benefits of additional chemotherapy would justify the risks. Unfortunately he has persisting disease. NGS. Was unrevealing No evidence of pneumonitis - dyspnea resolved. PLAN: Resume C2 pembrolizumab today. RTC in 3 weeks Ask Ms. So to call next week to heck symptoms I spent a total of 30 minutes on the date of the service which included preparing to see the patient, [id number] patient care, completing clinical documentation, performing a medically appropriate examination, counseling and educating the patient/family/caregiver, ordering medications, tests, or p rocedures, communicating with other HCPs (not separately reported), independently interpreting results (not separately reported), and communicating results to the patient/family/caregiver. Caesar Prado MD, CPE Hematology and Oncology Services Provided at: [place], [place] documented in this encounterOur [facility]03-28-2023 Miscellaneous Notes * Telephone Encounter - Margot So RN - 01/08/2023 3:49 PM EDT CYCLE 1/DAY 1 POST TREATMENT CALL Today's date: January 08, 2023 Treatment Regimen: Pembrolizumab C1D1 Date: 01/02/23 Called patient to follow-up on symptom management. Spoke with patient. SYMPTOM ASSESSMENT Neuro: None CV/Resp: None GI/: Fluid intake: @ least 60 oz of water per day. Denies nausea, vomiting, constipation, or diarrhea. Integument: None Activity: Patient reported no changes in energy level, energy level good Pain: No=0 (pain 0 on a scale of 0-10). Fever: No Chills: No Any new referrals needed? No Reinforced CURRENT treatment education based on current and anticipated symptoms. Discussed port/line care and patient verbalizes understanding: Not Applicable Patient instructed to contact office or after hours Hematology/Oncology fellow for: temperature ? 100.4; questions or concerns. Patient verbalized understanding of when to seek medical attention and after hours number protocol. Margot So RN documented in this encounterOur Lady Of [facility]03-22-2023 [facility]03-22-2023 Instructions* Patient Instructions* Caesar Prado MD - 01/02/2023 3:18 PM EDT Start Keytruda q 3 weeks Labs same day. RTC 3 weeks with Wayne / Corazon C2 documented in this encounterOur Lady Of [facility]03-22-2023 History of Present illness Narrative* Caesar Prado MD - 01/02/2023 3:11 PM EDT Images from the original note were not included. 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 December 05, 2011 bladder washings with rare atypical cells January 10, 2012 left kidney biopsies and renal washings without evidence of malignancy April 05, 2016 urine and renal washing cytology notable for atypical cells May 10, 2016 left kidney and bladder wall biopsies with chronic inflammation March 03, 2018 urine cytology consistent with high grade urothelial carcinoma; UroVysion FISH was positive for aneuploidy in 64 cells and del 9p21 in 8 cells May 15, 2018 Cystoscopy with biopsies consistent with 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 Tumor ablated with laser. Right ureteral washings with atypical cells.One dose of mitomycin administered. September 30, 2019 Cystourethroscopy with a low-grade appearing papillary tumor in the right lower pole. Biopsies not possible. 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 Urine cytology positive for high grade urothelial carcinoma October 26, 2021 endoscopic ablation renal pelvis mass biopsy consistent with high grade papillary urothelial carcinoma. No invasion noted. Tumor was not able to be completely resected. Procedure complicated by postoperative CELSO Recommendations to proceed with trial of chemotherapy per tumor board with the goal of shrinking the tumor to allow for endoscopic procedure November 27, 2021 started carboplatin AUC 5 and gemcitabine 1000 mg/m2 day 1 and 8; dose reduced by20% for grade 2 anemia for cycle 4 Updated Visit, January 02, 2023: Juan Jose returns today to start treatment with Keytruda. He is doing well and has considered other options being close to him because of his age and resulting anuria. He is safe to proceed. Consent was obtained. Education completed risks and benefits were reviewed with him. Expected adverse events were also reviewed. Updated Visit, December 24, 2022: Spoke with Juan Jose and with daughter Britt - they could see me but their video feed was down. Given his comorbidities he is a poor candidate for chemotherapy, pokagon based or otherwise. Surgery would yield him to be anuric and anephric committing him to lifelong dialysis which would not be desirable. Therefore will employ PD-L1 nhibitor for primary treatment. He is agreeable. NGS was unrevealing Updated Visit, November 26, 2022: Here with Daughter Britt Has persisting disease Concerned that he has need for systemic therapy No invasive disease is noted right now - however he is not a good candidate to leave anephric and require dialysis or transplant given his age No pain. Call in 2 weeks Denies any fevers, chills, cough or shortness of breath. ROS is negative except that mentioned in HPI PAST MEDICAL SURGICAL FAMILY AND SOCIAL HISTORY: He has a history of -Chronic kidney disease, stage 3 -Solitary right kidney -Hypertension -Hyperlipidemia -Benign Prostatic Hypertrophy -Low EF 40-45% with hypokinesis on ECHO in October 2021 Previous surgeries include back surgery, carpal tunnel repair, hernia repair and left-sided nephroureterectomy. Family history of significant for lung cancer in father and breast cancer in mother. Hehas a 40 pack year smoking history; quit in in 1980s. He has 4 children, one of which from multiple blood clots. 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 MEDICATIONS AND ALLERGIES: Reviewed PHYSICAL EXAM BP 133/58 Pulse 63 Temp 36.3 C (97.3 F) (Temporal) Resp 16 Ht 167.6 cm (5' 5.98 ) Wt 80.2kg (176 lb 12.8 oz) SpO2 97% BMI 28.55 kg/m Exam limited to gross visualization where appropriate due to COVID-19. Gen.: This is an age-appropriate patient in no acute distress. Head: Appears atraumatic with no visible lesions. Eyes: Pupils equally round and reactive to light, extraocular muscles are intact. Neck: Supple. Mouth: Masked. Respiratory: Appears to be respiring comfortably. Neurologic: Nonfocal to gross visualization. Alert and oriented 3. Psychiatric: No evidence of inappropriate anxiety or depression. Skin: Visible areas of skin without rash, lesions, wounds or petechiae. LABORATORY, IMAGING AND PATHOLOGY CBC and CMP reviewed 2D echocardiogram (scanned) with EF of 40-45% in October 2021 ASSESSMENT AND RECOMMENDATIONS 82 male with right solitary kidney and recurrent tract urothelial carcinoma Patient was diagnosed with a left-sided upper tract urothelial carcinoma for which he underwent a left nephroureterectomy in 2018. At that point, he was evaluated by medical oncology and given the option of doing adjuvant cisplatin- based chemotherapy. Patient had declined this option at that time. In 2019, he had a recurrence of a noninvasive papillary high-grade urothelial carcinoma in the rightrenal pelvis for which he underwent laser ablation. Most recently, based on CT urogram done in September 2021, cytology and ureteroscopy he had local recurrence of a noninvasive papillary high-grade urothelial carcinoma, for which he underwent endoscopic ablation that was incomplete in October 2021. Given his unique situation and in order to avoid nephroureterectomy, we proceeded with a trial of gemcitabine and carboplatin (patient is not a cisplatin candidate given low EF and CKD). Patient has completed 4 cycles of gemcitabine and carboplatin. Side effects of included grade 2 myelosuppression needing dose reduction and grade 2 CINV and diarrhea. After last infusion, he had a spell of dizziness resulting in a fall and head injury. I have discussed to hold off on any further chemotherapy at this time. With recent dose reduction and delays, I do not think the benefits of additional chemotherapy would justify the risks. Unfortunately he has persisting disease. NGS. Was unrevealing PLAN: Start Keytruda q 3 weeks Labs same day. RTC 3 weeks with Wayne / Corazon Owens I spent a total of 30 minutes on the date of the service which included preparing to see the patient, [id number] patient care, completing clinical documentation, obtaining and/or reviewing separately obtained history, counseling and educating the patient/family/caregiver, ordering medications, edin ts, or procedures, independently interpreting results (not separately reported), and communicating results to the patient/family/caregiver. Caesar Prado MD, CPE Hematology and Oncology Services Provided at: [place], [place] documented in this encounterOur Lady Of [facility]03-22-2023 Nurse Note* Liberty Hayes - 01/02/2023 3:08 PM EDT Pt requested recent blood work faxed to Dr. Sneed. Faxed via [employer]. Liberty Hayes documented in this encounterOur Lady Of [facility]cy [facility]03-20-2023 [facility]03-20-2023 History of Present illness Narrative* Margot So RN - 12/31/2022 1:34 PM EDT ONCOLOGY PATIENT EDUCATION NOTE TOPIC: Immunotherapy, Medications: Pembrolizumab READINESS TO LEARN: COGNITIVE ABILITY: Alert and oriented MOTIVATION TO LEARN: Interested FAMILY SUPPORT: High - Very involved in pt care INSTRUCTION PROVIDED TO: Patient and Daughter INSTRUCTION PROVIDED BY: Nurse Coordinator PATIENT LEARNS BEST BY: Multiple Methods FACTORS AFFECTING LEARNING: None PHYSICAL LIMITATIONS AFFECTING LEARNING: None LEARNING RESPONSE DIAGNOSIS: Bladder Cancer METHOD OF INSTRUCTION: Individual instruction Written instruction - handouts Verbal instruction PATIENT/FAMILY RESPONSE: Verbalizes understanding of: INFECTION MANAGEMENT-Signs and symptoms of aninfection and importance of contacting the physician MEDICAL REGIMEN-Importance of following prescribed medical regimen MEDICATION SIDE EFFECTS-Side effects associated with the medication that warrant a call to the physician SYMPTOM MANAGEMENT-Correct actions to take to manage symptoms associated with his/her disease/illness WORSENING CONDITION-Signs and symptoms of a worsening condition that warrant a call to the physician Information received as demonstrated by interest and questions FOLLOW UP PLAN: Patient instructed to call with any further issues Contact information given. SUPPLEMENTAL MATERIAL: Written material was provided at this visit with the following information: - Immunotherapy education was provided by a pharmacist YES - Side effect management information was provided/discussed including but not limited to: abdominaldiscomfort, anemia, arthralgia, bowel habit changes, cardiac toxicity, diet, electrolyte disturbances, fatigue, headache, hyperglycemia, infection, kidney toxicity, myalgia, nausea/vomitting, peripheral neuropathy, rash, shortness of breath, skin changes, vision disorder/distrubance YES - Provided important phone numbers and contacts during and after hours. YES - Provided information on symptoms that require immediate assistance. YES - Provided Immunotherapy when to call handouts YES - Preventing infection. YES - Treatment schedule and confirmation of appointment times. YES - Available support groups. NA - The importance of contraception during the course of chemotherapy YES - Patient services information. YES - ONS Immunotherapy wallet card provided to pt. Time Spent: 25 minutes REFERRAL (RECOMMENDATION): N/A Margot So RN documented in this encounterOur Lady Of [facility]cy [facility]03-13-2023 [facility]03-08-2023 Miscellaneous Notes* Telephone Encounter - Jimbo Alarcon MD - 12/19/2022 8:54 AM EST Patient cancelled Nephrology appt for 12/20/22. Called patient, plan to get labs in the coming days to ensure continued improvement of Cr. documented in this encounterOur Lady Of [facility]cy [facility]03-06-2023 Miscellaneous Notes* Telephone Encounter - Lauren Mendez - 12/17/2022 11:21 AM EST Called patient and r/s to next week * Telephone Encounter - Lauren Mckeon RN - 12/17/2022 11:15 AM EST Pt's caris testing has not been resulted yet. Please call pt and reschedule to next week per Dr Moncada's request. Thanks Lauren Mckeon RN documented in this encounterOur Lady Of [facility]cy [facility]02-22-2023 Hospital Discharge instructions Patient Education 12/05/2022 10:40:17 Bladder Cancer Bladder Cancer Bladder cancer is an abnormal growth of tissue in the bladder. The bladder is the balloon-like sac in the pelvis. It collects and stores urine that comes from the kidneys through the ureters. The bladder wall is made of layers. If cancer spreads into these layers and through the wall of the bladder, it becomes more difficult to treat. What are the causes? The cause of this condition is not known. What increases the risk? The following factors may make you more likely to develop this condition: Smoking. Workplace risks (occupational exposures), such as rubber, leather, textile, dyes, chemicals, and paint. Being white. Your age. Most people with bladder cancer are over the age of 55. Being male. Having chronic bladder inflammation. Having a personal history of bladder cancer. Having a family history of bladder cancer (heredity). Having had chemotherapy or radiation therapy to the pelvis. Having been exposed to arsenic. What are the signs or symptoms? Initial symptoms of this condition include: Blood in the urine. Painful urination. Frequent bladder or urine infections. Increase in urgency and frequency of urination. Advanced symptoms of this condition include: Not being able to urinate. Low back pain on one side. Loss of appetite. Weight loss. Fatigue. Swelling in the feet. Bone pain. How is this diagnosed? This condition is diagnosed based on your medical history, a physical exam, urine tests, lab tests,imaging tests, and your symptoms. You may also have other tests or procedures done, such as: A narrow tube being inserted into your bladder through your urethra (cystoscopy) in order to view the lining of your bladder for tumors. A biopsy to sample the tumor to see if cancer is present. If cancer is present, it will then be staged to determine its severity and extent. Staging is an assessment of: The size of the tumor. Whether the cancer has spread. Where the cancer has spread. It is important to know how deeply into the bladder wall cancer has grown and whether cancer has spread to any other parts of your body. Staging may require blood tests or imaging tests, such as a CTscan, MRI, bone scan, or chest X-ray. How is this treated? Based on the stage of cancer, one treatment or a combination of treatments may be recommended. The most common forms of treatment are: Surgery to remove the cancer. Procedures that may be done include transurethral resection and cystectomy. Radiation therapy. This is high-energy X-rays or other particles. This is often used in combinationwith chemotherapy. Chemotherapy. During this treatment, medicines are used to kill cancer cells. Immunotherapy. This uses medicines to help your own immune system destroy cancer cells. Follow these instructions at home: Take [id number] and prescription medicines only as told by your health care provider. Maintain a healthy diet. Some of your treatments might affect your appetite. Consider joining a support group. This may help you learn to cope with the stress of having bladdercancer. Tell your cancer care team if you develop side effects. They may be able to recommend ways to relieve them. Keep all follow-up visits as told by your health care provider. This is important. Where to find more information [place] [employer]: www.cancer.org National Cancer [place] (NCI): www.cancer.gov Contact a health care provider if: You have symptoms of a urinary tract infection. These include: ?Fever. ?Chills. ?Weakness. ?Muscle aches. ?Abdominal pain. ?Frequent and intense urge to urinate. ?Burning feeling in the bladder or urethra during urination. Get help right away if: There is blood in your urine. You cannot urinate. You have severe pain or other symptoms that do not go away. Summary Bladder cancer is an abnormal growth of tissue in the bladder. This condition is diagnosed based on your medical history, a physical exam, urine tests, lab tests,imaging tests, and your symptoms. Based on the stage of cancer, surgery, chemotherapy, or a combination of treatments may be recommended. Consider joining a support group. This may help you learn to cope with the stress of having bladdercancer. This information is not intended to replace advice given to you by your health care provider. Make sure you discuss any questions you have with your health care provider. Document Released: 10/02/2004 Document Revised: 09/12/2018 Document Reviewed: 09/03/2017 [employer] Patient Education 2020 [email or web address] Follow Up Care 11/23/2022 15:08:18 With:JENNIFER FOUNTAIN, Jian Lee, TIFFANIE Address: [facility] [address], [place] [address]- When: Unknown [facility] 02-20-2023 NoteUT [facility] - [facility] Iain Austin is a 82 y.o. year old male patient being seen for 8 mo follow up Congestive Heart Failure, Hypertension, and Atrial Flutter Had labs in Sep 2022. He presented to [facility] ED a few weeks ago for hematuria, and was transferred to [facility] for nephrology issues. Aspirin was stopped. Hematuria has finally cleared up. Patient Active Problem List Diagnosis Hypertensive disorder CKD (chronic kidney disease) Family History Problem Relation Name Age of Onset Heart failure Mother Social History Tobacco Use Smoking status: Former Types: Cigarettes Smokeless tobacco: Never Substance Use Topics Alcohol use: Not Currently HPI Mr Juan Jose Austin is seen in follow up. He is a 82 yo man. He was initially seen on 04/22/2018 as a new patient. Visit of 04/22/2018: He is planned for cystoscopy and other urological procedure. He has history of bladder cancer and recent CT scan showed a mass for which he will undergo the procedure. He developed chest pain about 10 days ago while watching TV. He says it was sharp pain, in the mid chest, up and down the chest area. Lasted about 1.5 hours. He says it was not related to breathing. No recurrence since then. He has dyspnea on exertion, moderate, relieved by rest. He was evaluated [facility] ED and his CBC, BMP, BNP, Liver enzymes, 2 sets of troponin were all negative. Past testing: Echocardiogram 12/2014: Normal LV systolic function. Mild diastolic dysfunction. No valvular dysfunction. RVSP 31 mmHg. Stress test 12/2014: mostly fixed but minimally reversible inferior/inferolateral defect consistent with artifact. Normal ventricular systolic function. Review of his recent ECGs on 04/13/2018 and 03/2018 showed sinus rhythm with possible LBBB. Update 05/05/2018: He is here to follow up on symptoms and testing. Since last visit he has not had any chest pain. He still has dyspnea on exertion, moderate, relieved by rest. He also has bendopnea. Cardiac testin. Echocardiogram 04/29/2018: Global left ventricular systolic function is normal (Visually estimated EF 60%). The left ventricle is normal size. Left ventricular wall thickness is normal. No regional wall motion abnormality. Grade 1, mild diastolic dysfunction (abnormal relaxation). Normal right ventricular systolic function. The right ventricle is mildly enlarged. The left atrium is mildly enlarged. Unable to assess right sided pressures due to lack of measurable tricuspid regurgitation. No previous study to compare to. 2. Treadmill Stress test 04/29/2018: Normal myocardial perfusion. No ischemia. Normal wall motion. Mildly reduced LV systolic function with EF 45%. Update 11/06/2018: He is seen in follow up. He underwent urologic surgery (including left nephrectomy). He did well with that. He is following with urology and nephrology. His renal function has worsened after the nephrectomy and his Cr stabilized at 1.8 in 09/2018. His blood pressure is better after adding amlodipine. Update 05/25/2019: He is in follow-up. He has no chest pain. he has mild shortness of breath on activity but is not limiting him. He says he can do the things he wants to do. No leg swelling. He has stopped triamterene/HCTZ due to no refills. He has dizziness occasionally. BMP 11/17/2018: Creatinine 1.95, BUN 34, potassium 4.0. Visit of 07/17/2021: He is seen in follow-up. I have not seen him for more than 2 years. Recently he has been having excessive symptoms of shortness of breath on exertion. NYHA class III. He has bilateral lower extremity edema. He denies chest pain. No palpitations. No syncope. Recent testing included a stress test that showed significantly reduced left-ventricular systolic function with an ejection fraction of 37%. No ischemia was found. In addition he had elevated BNP. Stress test 06/27/2021: No acute or reversible ischemia, moderate-marked decreased perfusion of the inferior wall from base to apex favoring remote infarction. Diaphragmatic attenuation artifact is not completely excluded. Marked ventriculomegaly, 232 mL. Severe global hypokinesis with no movement of the apex. Markedly low ejection fraction, 37%. ECG shows left bundle branch block. Blood testing 06/27/2021: Hemoglobin 13.8, platelets 220, BUN 22, creatinine 1.63, potassium 3.9, LFTs within normal limits, cholesterol 137, HDL 47, triglycerides 86, LDL 73, NT proBNP 4459, hemoglobin A1c 5.2. Visit of 08/29/2021: He is seen in follow-up. At last visit I reviewed with him the results of the stress test in June 2021 that did not show ischemia. However I indicated to him that there is still possibility that he has significant coronary artery disease. Given his renal dysfunction I wanted to manage him medically at this point and consider cardiac catheterization if he does not respond. I optimize heart failure treatment by adding hydralazin (more content not included)...[facility] Instructions* Patient Instructions* Caesar Prado MD - 11/26/2022 9:29 AM EST 1. Virtual visit 3 weeks after discussion with Dr. Bhatt and consideration of molecular studies. 2. AP Mol. documented in this encounterOur [facility] History of Present illness Narrative* Caesar Prado MD - 11/26/2022 8:53 AM EST Images from the original note were not included. 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 December 05, 2011 bladder washings with rare atypical cells January 10, 2012 left kidney biopsies and renal washings without evidence of malignancy April 05, 2016 urine and renal washing cytology notable for atypical cells May 10, 2016 left kidney and bladder wall biopsies with chronic inflammation March 03, 2018 urine cytology consistent with high grade urothelial carcinoma; UroVysion FISH was positive for aneuploidy in 64 cells and del 9p21 in 8 cells May 15, 2018 Cystoscopy with biopsies consistent with 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 Tumor ablated with laser. Right ureteral washings with atypical cells.One dose of mitomycin administered. September 30, 2019 Cystourethroscopy with a low-grade appearing papillary tumor in the right lower pole. Biopsies not possible. 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 Urine cytology positive for high grade urothelial carcinoma October 26, 2021 endoscopic ablation renal pelvis mass biopsy consistent with high grade papillary urothelial carcinoma. No invasion noted. Tumor was not able to be completely resected. Procedure complicated by postoperative CELSO Recommendations to proceed with trial of chemotherapy per tumor board with the goal of shrinking the tumor to allow for endoscopic procedure November 27, 2021 started carboplatin AUC 5 and gemcitabine 1000 mg/m2 day 1 and 8; dose reduced by20% for grade 2 anemia for cycle 4 INTERVAL HISTORY: Updated Visit, November 26, 2022: Here with Daughter Britt Has persisting disease Concerned that he has need for systemic therapy No invasive disease is noted right now - however he is not a good candidate to leave anephric and require dialysis or transplant given his age No pain. Call in 2 weeks Denies any fevers, chills, cough or shortness of breath. ROS is negative except that mentioned in HPI PAST MEDICAL SURGICAL FAMILY AND SOCIAL HISTORY: He has a history of -Chronic kidney disease, stage 3 -Solitary right kidney -Hypertension -Hyperlipidemia -Benign Prostatic Hypertrophy -Low EF 40-45% with hypokinesis on ECHO in October 2021 Previous surgeries include back surgery, carpal tunnel repair, hernia repair and left-sided nephroureterectomy. Family history of significant for lung cancer in father and breast cancer in mother. Hehas a 40 pack year smoking history; quit in in 1980s. He has 4 children, one of which from multiple blood clots. 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 MEDICATIONS AND ALLERGIES: Reviewed PHYSICAL EXAM BP 131/63 Pulse 60 Temp 36.5 C (97.7 F) (Temporal) Resp 16 Ht 167.6 cm (5' 5.98 ) Wt 77.5kg (170 lb 12.8 oz) SpO2 97% BMI 27.58 kg/m PS - 0, Head atraumatic, no pallor, icterus or lymphadenopathy, lungs clear to auscultation, heart sounds regular, abdomen soft without distension or organomegaly, neuro grossly non-focal, skin without rash, extremities without swelling LABORATORY, IMAGING AND PATHOLOGY CBC and CMP reviewed 2D echocardiogram (scanned) with EF of 40-45% in October 2021 ASSESSMENT AND RECOMMENDATIONS 82 male with right solitary kidney and recurrent tract urothelial carcinoma Patient was diagnosed with a left-sided upper tract urothelial carcinoma for which he underwent a left nephroureterectomy in 2018. At that point, he was evaluated by medical oncology and given the option of doing adjuvant cisplatin- based chemotherapy. Patient had declined this option at that time. In 2019, he had a recurrence of a noninvasive papillary high-grade urothelial carcinoma in the rightrenal pelvis for which he underwent laser ablation. Most recently, based on CT urogram done in September 2021, cytology and ureteroscopy he had local recurrence of a noninvasive papillary high-grade urothelial carcinoma, for which he underwent endoscopic ablation that was incomplete in October 2021. Given his unique situation and in order to avoid nephroureterectomy, we proceeded with a trial of gemcitabine and carboplatin (patient is not a cisplatin candidate given low EF and CKD). Patient has completed 4 cycles of gemcitabine and carboplatin. Side effects of included grade 2 myelosuppression needing dose reduction and grade 2 CINV and diarrhea. After last infusion, he had a spell of dizziness resulting in a fall and head injury. I have discussed to hold off on any further chemotherapy at this time. With recent dose reduction and delays, I do not think the benefits of additional chemotherapy would justify the risks. Unfortunately he has persisting disease. Will need treatment assessment. Will obtain NGS. Caesar Prado MD, CPE H[facility]ology [facility] Oncology Services Provided at: [place], [place] I spent a total of 40 minutes on the date of the service which included preparing to see the patient, nibi-on-yagy patient care, completing clinical documentation, obtaining and/or reviewing separately obtained history, performing a medically appropriate examination, counseling and educating the pat ient/family/caregiver, ordering medications, tests, or procedures, independently interpreting results (not separately reported) and communicating results to the patient/family/caregiver. documented in this encounterOur [facility] Nurse Note* Jami Hernandez MA - 11/26/2022 8:47 AM EST Patient was recently in the Hospital for cancer ([facility]), he will havehis ureteral stent removed locally by Dr. Rodriguez. Jami Hernandez MA documented in this encounterOur [facility]02-07-2023 NoteMet[facility]02-[facility] History of Present illness Narrative* Rita Bhatt MD - 11/20/2022 1:30 PM EST Telephone VISIT PROGRESS NOTE This is a virtual visit using Audio only. It required patient-provider interaction for the medical decision making as documented below. Persons Present: patient and daughter (adult) Chief Complaint/Reason: Post-op virtual visit Clinic note from 03/13/2022 copied and updated. HPI: Juan oJse Austin is a 82 year old male male with history of CKD stage 3, HTN, HLD, left upper tract urothelial carcinoma s/p left nephroureterectomy 06/2018, and solitary right kidney with R UTUC s/p URS and laser ablation 10/2019 who was recently found to have tumor recurrence and underwent right URS, tumor ablation and right ureteral stent placement 10/26/[address] Bhatt. Final pathology revealed scant superficial fragments of high-grade papillary urothelial carcinoma. He presents for follow up today. He was readmitted on 02/26/2022 after surgery with ECLSO (Cr >9) from clot in the right renal pelvis obstructing outflow. He was managed conservatively and his creatinine improved. Completed 4 cycles of gemcitabine and carboplatin on 03/01/2022 w/ Dr. Israel (Hem/onc). S/p Right retrograde pyelogram, Right Ureteroscopy with laser ablation of renal pelvis tumor w/ Dr Bhatt on 05/23/2022. S/p Right Ureteroscopy with basket extraction of renal pelvis tumor, Right retrograde pyelogram, TURBT, with Dr. Bhatt on 11/12/3022. Findings: Right ureteral orifice papillary tumor, about 1cm, resected while preserving the overall architecture of the UO. diffuse right renal pelvis tumor involving all calyces and the majority of the mucosal surfaces. Right ureter was largely uninvolved by cancer.Significant upper tract hematuria from the stent was seen after placement Interval Hx: Doing well. Data Reviewed: Most recent labs and imaging results. Labs Creatinine Date Value Ref Range Status 11/19/2022 4.74 (H) 0.73 - 1.22 mg/dL Final 11/18/2022 6.19 (H) 0.73 - 1.22 mg/dL Final 11/17/2022 6.75 (H) 0.73 - 1.22 mg/dL Final 11/16/2022 7.32 (H) 0.73 - 1.22 mg/dL Final Imaging CT Chest 11/15/2022 IMPRESSION: 1. No suspicious pulmonary nodules or new thoracic lymphadenopathy. 2. New small RIGHT and trace LEFT pleural effusions with adjacent atelectasis. CT Flank: 11/15/2022 IMPRESSION: Mild right hydronephrosis, similar to 10/30/2021, despite appropriately positioned right ureteral stent. High attenuation material within the right calyces, pelvis, and proximal ureter likely represents a combination of urothelial tumor and blood products. HISTORY REVIEWED (electronic chart updated): PAST MEDICAL HISTORY Diagnosis Date Bladder cancer (HCC) Cancer (HCC) Incasive Ureteral Cancer Hematuria Hypertension Nephrolithiasis PAST SURGICAL HISTORY Procedure Laterality Date BACK SURGERY HX CARPAL TUNNEL HERNIA REPAIR HX PAST SURGICAL HISTORY OF Left 06/2018 Nephroureterectomy FAMILY HISTORY Problem Relation Age of Onset Asthma Mother other (htn) Mother Asthma Sister Anesthesia Problems No Family History Social History Tobacco Use Smoking status: Former Packs/day: 1.00 Years: 30.00 Pack years: 30.00 Types: Cigarettes Quit date: 1970 Years since quittin.1 Smokeless tobacco: Never Substance Use Topics Alcohol use: No Drug use: No Current Outpatient Medications Medication Sig amLODIPine (NORVASC) 10 mg tablet Take 10 mg by mouth once daily. metoprolol tartrate, short acting, (LOPRESSOR) 25 mg tablet Take 25 mg by mouth twice daily. tamsulosin (FLOMAX) 0.4 mg Take 1 capsule by mouth once daily. oxyCODONE IR (ROXICODONE) 5 mg immediate release tablet Take 1 tablet by mouth every 8 hours as needed for pain. docusate sodium (COLACE) 100 mg capsule Take 1 capsule by mouth twice daily for 14 days. Stop taking if you develop diarrhea or loose stools hydrALAZINE (APRESOLINE) 50 mg tablet omeprazole (PRILOSEC) 20 mg capsule Take 1 capsule by mouth twice daily. empagliflozin (JARDIANCE) 10 mg tablet Take 10 mg by mouth daily with breakfast. furosemide (LASIX) 20 mg tablet Take 20 mg by mouth once daily. isosorbide dinitrate (ISORDIL) 10 mg tablet Take 20 mg by mouth three times daily. aspirin, enteric coated (ASPIRIN, ENTERIC COATED) 81 mg EC tablet Take 81 mg by mouth once daily. Glucosamine-Chondroitin 500-400 mg tablet Take 1 tablet by mouth once daily. folic acid/multivit-min/lutein (CENTRUM SILVER ORAL) Take 1 tablet by mouth once daily. balsalazide (COLAZAL) 750 mg capsule Take 1,500 mg by mouth three times daily. atorvastatin (LIPITOR) 10 mg tablet Take 10 mg by mouth once daily. No current facility-administered medications for this visit. ALLERGIES Allergen Reactions Tape [Adhesive Tape* Other: See Comments Severe blisters REVIEW OF SYSTEMS: GENERAL: feeling well without fatigue, no recent change in weight GI: normal appetite, tolerating PO well, BMs normal, and no abdominal pain : urination is normal PHYSICAL EXAMINATION: VIDEO EXAM: (if completed, performed via video enabled technology) No exam performed ASSESSMENT: (C64.9) 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, unspecified laterality (HCC) (primary encounter diagnosis) 82 y/o male w/ hx of CKD stage 3, HTN, HLD, left upper tract urothelial carcinoma s/p left nephroureterectomy 06/2018, and solitary right kidney with R UTUC s/p URS and laser ablation 10/2019 who presents for post op visit. PLAN: - his high grade upper tract urothelial and bladder cancer is too high volume in the upper tract toconsider endoscopic treatment and therefore he would probably be best off recieving nursing home immunotherapy or other systemic therapy. We could consider nephroureteroectomy but it would render him anephric which is not highly advisable at 82 years old. -Hopefully, Dr. Rodriguez could remove his stent at any point in time, locally. -Follow up with a virtual visit in 3 months with me to consider when and if to scope next based on CT scan results There are no Patient Instructions on file for this visit. I spent a total of 15 minutes on the date of the service which included preparing to see the patient, completing clinical documentation, and obtaining and/or reviewing separately obtained history I, Rita Bhatt MD, personally performed the services described in this documentation. All medical record entries made by the scribe were at my direction and in my presence. I have reviewed the chart and discharge instructions (if applicable) and agree that the record reflects my personal performance and is accurate and complete. Rita Bhatt MD documented in this encounterOur [facility]02-[facility] Note [facility] 11-12-20[facility] History of Present illness Narrative* Nicholas Saenz MD - 09/12/2022 2:[address] [facility] PRE-OP NOTE Patient is a 82 year old male Pre-op Date: 09/12/22 Date of Procedure: 09/19/22 Does the patient have an active COVID-19 test in Epic? NA Procedure/Surgery: Cystoscopy, Right retrograde pyelogram, right diagnostic ureteroscopy, possible biopsy, possible laser ablation Diagnosis: right upper tract urothelial carcinoma Primary Surgeon: Rita Bhatt MD Pain Assessment: Are you currently having pain? No Surgical Guide Book Status: Patient has guide with them today. Allergies Reviewed: Adhesive tape Medications Reviewed: yes Is patient currently on oral steroids?: no Has the patient had a UTI in the past month?: no Does the patient have any artificial joints (last 2 years), metal parts, pacemakers or cardiac/ureteral stents in place?: no metal Does the patient have diabetes?: yes Is the patient routinely taking anticoagulants?: [id number] (hasnt been taking for 2 months) Can the patient have an IV put in either arm?: yes Urine Dip Complete?: Dropped off just prior to appointment per patient URINE CULTURE COMPLETE?: no Ostomy/Stoma Nurse appointment made/completed: N/A IMPACT/Medical Clearance: Cleared per [facility]ACT - To be seen [facility]: Cleared per [facility] - To be seen All testing on cureform has been scheduled: Yes Consent Signed: yes DOS Orders Placed and Signed: Yes. Pre-op H&P Done by Urology Fellow: Done. PATIENT INSTRUCTIONS FOR SURGERY 1.) DO NOT HAVE ANYTHING TO EAT AFTER MIDNIGHT THE DAY BEFORE SURGERY except for certain morning medications as instructed by the doctor. Candy, mints, gum, and smoking are NOT permitted. You may drink clear liquids (Sprite, water, arlen percy) up to two hours before your arrival time on the day of surgery. 2.) Medications to be taken on the morning of surgery with a few sips of water: discussed with patient 3.) Please bring all your prescribed inhalers (if you have any you normally take) to the hospital. 4.) Arrival time: Call for arrival. 5.) Prep given: No 6.) Lovenox instructions given: N/A 7.) Patient reminded that surgery time provided day before surgery is tentative based on potential changes with transplants. Recommendations: This patient is optimally prepared for surgery pending LABS, IMPACT documented in this encounterOur Lady Of [facility]11-30-2022 History and physical note * Fatimah Salcedo PA-C - 09/12/2022 12:40 PM EST Images from the original note were not included. HISTORY AND PHYSICAL EXAMINATION SERVICE DATE: 09/12/2022 SERVICE TIME: 11:10 AM PRIMARY CARE PHYSICIAN: Yoan Sneed MD, MD REASON FOR VISIT: Juan Jose Austin is a 82 year old male who is scheduled for LASER CYSTOURETHROSCOPY W/ URETEROSCOPY AND/OR PYELOSCOPY W/ LITHOTRIPSY HOLMIUM; laser ablation tumor, CYSTOURETHROSCOPY W/ REMOVE URETERAL STENT, CYSTOSCOPY, INSERTION STENT URETERAL J at the request of Dr. Rita Bhatt for consultation. My final recommendation will be communicated back to the requesting physician by way of shared medical record or letter. 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 Patient has malignant neoplasm of right kidney that has been pr esent since 2019, at that time he had URS and laser ablation. The tumor has recurred. He has been getting chemo, his last dose was a few months ago. He has a history of left kidney cancer s/p left nephroureterectomy. Denies any fever, chills, nausea, vomiting, chest pain, abdominal pain, SOB. PAST MEDICAL HISTORY Diagnosis Date Bladder cancer (HCC) Cancer (HCC) Incasive Ureteral Cancer Hematuria Hypertension Nephrolithiasis PAST SURGICAL HISTORY Procedure Laterality Date BACK SURGERY HX CARPAL TUNNEL HERNIA REPAIR HX PAST SURGICAL HISTORY OF Left 06/2018 Nephroureterectomy FAMILY HISTORY Problem Relation Age of Onset Asthma Mother other (htn) Mother Asthma Sister Anesthesia Problems No Family History SOCIAL HISTORY: Social History Tobacco Use Smoking status: Former Packs/day: 1.00 Years: 30.00 Pack years: 30.00 Types: Cigarettes Quit date: 1970 Years since quittin.9 Smokeless tobacco: Never Substance Use Topics Alcohol use: No Drug use: No MEDICATIONS: Prior to Admission medications as of 09/12/22 1113 Medication Sig Last Dose Taking tamsulosin (FLOMAX) 0.4 mg Take 1 capsule by mouth once daily 30 minutes after the same meal TakingYes docusate sodium (COLACE) 100 mg capsule Take 1 capsule by mouth twice daily. Taking Yes oxybutynin (DITROPAN) 5 mg tablet Take 1 tablet by mouth three times daily as needed (bladder spasms). Taking Yes acetaminophen (TYLENOL) 325 mg tablet Take 2 tablets by mouth every 4 hours as needed for pain. Taking Yes potassium chloride SR (MICRO-K) 10 mEq CR capsule Taking Yes hydrALAZINE (APRESOLINE) 50 mg tablet Taking Yes empagliflozin (JARDIANCE) 10 mg tablet Take 10 mg by mouth daily with breakfast. Taking Yes furosemide (LASIX) 20 mg tablet Take 20 mg by mouth once daily. Taking Yes isosorbide dinitrate (ISORDIL) 10 mg tablet Take 20 mg by mouth three times daily. Taking Yes aspirin, enteric coated (ASPIRIN, ENTERIC COATED) 81 mg EC tablet Take 81 mg by mouth once daily. Taking Yes Glucosamine-Chondroitin 500-400 mg tablet Take 1 tablet by mouth once daily. Taking Yes folic acid/multivit-min/lutein (CENTRUM SILVER ORAL) Take 1 tablet by mouth once daily. Taking Yes Cranberry 500 mg cap Take 500 mg by mouth twice daily. Taking Yes balsalazide (COLAZAL) 750 mg capsule Take 1,500 mg by mouth three times daily. Taking Yes atorvastatin (LIPITOR) 10 mg tablet Take 10 mg by mouth once daily. Taking Yes losartan (COZAAR) 50 mg tablet Take 50 mg by mouth twice daily. Taking Yes oxyCODONE IR (ROXICODONE) 5 mg immediate release tablet Take 1 tablet by mouth every 8 hours as needed for pain. Patient not taking: Reported on 09/12/2022 Not Taking omeprazole (PRILOSEC) 20 mg capsule Take 1 capsule by mouth twice daily. omega-3 fatty acids/fish oil (FISH OIL-OMEGA-3 FATTY ACIDS) 300-1,000 mg cap Take 2 g by mouth oncedaily. Patient not taking: Reported on 09/12/2022 Not Taking No medication comments found. CURRENT ALLERGIES: ALLERGIES Allergen Reactions Tape [Adhesive Tape* Other: See Comments Severe blisters COVID VACCINATION STATUS: Fully vaccinated REVIEW OF SYSTEMS: PAIN ASSESSMENT: General: No weight loss, malaise or fevers. Neuro: No history of TIA's, stroke, SALES MARKETING tumor, impaired sensorium, hemiplegia, paraplegia or quadraplegia. No neurological symptoms or problems. Respiratory: No history of current cough or dyspnea, or pneumonia in the past 6 weeks. No history of respiratory/pulmonary symptoms or problems. Cardiovascular: Negative for Recent SD, Angina, Arrhythmia, CAD, Chest Pain, PVD, Valvular Heart Disease, DVT/PE+HTN, +HF Follows with cardiology Dr. Casey Castaneda GI: Negative for PUD, Nausea, Vomiting, Abdominal pain, Hepatitis, Liver disease, Pancreatitis, IBS+GERD, +UC-on rx : See HPI+CKD 3 Endocrine: No history of diabetes. Has not taken steroids within the past 30 days. No history of endocrinological symptoms or problems.+on Jardiance for HF Hematology: No history of bleeding or clotting disorder. Pt is not taking anti- coagulation or platelet medications. No history of hematological symptoms or problems. Oncology: See HPI Psych: No history of psychiatric symptoms or problems. Musculoskeletal: Joint pain Skin: Negative for lesions, rash and itching. Objective PHYSICAL EXAM: VITALS: BP 170/72[Manual[ Pulse 66 Temp (Src) 98.3 (Temporal) Ht 5' 6 (1.68m) Wt 174 lb (78.9kg) SpO2 96% BMI 28.10 kg/(m^2). General: Alert and oriented, No acute distress Skin: Normal color, no rash, no lesions. HEENT: EOM, pupils equal, round and reactive., No carotid bruits Cardiovascular: Normal S1 & S2, no rubs, murmurs or gallops. No JVD. Pulse regular. Lungs: Normal breath sounds, no wheezes or crackles. Extremities: No deformity, no edema or tenderness, no joint swelling or clubbing. Neurological: Normal cognition and motor skills. Gait normal. No weakness or sensory deficit. Pulses: Radial pulses normal +2. Diagnostic tests reviewed for today's visit: Lab Value Units Date High Low HB 11.1 g/dL 03/16/2022 17.0 13.0 HCT 34.9 % 03/16/2022 51.0 39.0 WBC 3.51 k/uL 03/16/2022 11.00 3.70 PLT 190 k/uL 03/16/2022 400 150 NA 137 mmol/L 03/16/2022 144 136 K 4.5 mmol/L 03/16/2022 5.1 3.7 GLUC 117 mg/dL 03/16/2022 99 74 BUN 19 mg/dL 03/16/2022 24 9 CREAT 1.67 mg/dL 03/16/2022 1.22 0.73 PTSEC No results within date range. INR No results within date range. APTT No results within date range. ALT 14 U/L 03/16/2022 54 10 AST 27 U/L 03/16/2022 40 14 TBILI 0.5 mg/dL 03/16/2022 1.3 0.2 TSH No results within date range. Lab Value Units Date High Low HCGQT No results within date range. UHCG No results within date range. HCG, BODY* No results within date range. Lab Value Units Date High Low ABORHD No results within date range. ABSCREEN No results within date range. No results found for: HBA1C Labs pending EKG 09/12/22 pending EKG 03/16/22 Diagnosis: SINUS BRADYCARDIA WITH 1ST DEGREE AV BLOCK LEFT AXIS DEVIATION COMPLETE RIGHT BUNDLE BRANCH BLOCK ABNORMAL ECG ECHO 02/27/22 scanned into [facility] Assessment/Plan Hypertensive heart disease with heart failure (HCC) -BP elevated in office 171/70, 170/72, patient reports he has not taken any of his medications yet today -denies cardiac symptoms -EF 55% on echo 02/2022 scanned into [facility] -on hydralazine, losartan, isosorbide dinitrate, and Jardiance -follows with cardiology, dr. 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 Class: 3 ANESTHESIA FINDINGS: Intubation History: No history of difficult intubation Significant Anesthesia Considerations: None Airway Exam: General: Normal appearance Mallampati Score is CLASS I ULBT: Class I - Lower incisors can bite the upper lip above the jay line Neck: Normal appearance and function, Distance from hyoid to mentum during neck extension is at least 3 finger breaths Mouth: Normal tongue size and Mouth opening greater than 2 finger breaths Dentition: Upper denture and Lower denture Airway History: No abnormal airway history STOP BANG Score: Criteria: Hypertension Age over 50 (82 year old) Male gender Score = 3 PLAN This patient is optimally prepared for surgery pending LABS and EKG. CONSULTS: Patient does not require consults for optimization at this time. The Following Tests/Procedures Have Been Initiated: Orders Placed This Encounter ECG COMPLETE Standing Status: Future Number of Occurrences: 1 Standing Expiration Date: 09/12/2023 CBC, CMP, PT, aPTT per surgical service. Requested most recent office note from biometrics technician, Dr. Mason Castaneda. Planned Anesthetic: General Instructions Given to Patient: Instructions located in the after visit summary. Patient given verbal and written preop instructions and voices comprehension and compliance. SIGNATURE: Fatimah Salcedo PA-C PATIENT NAME: Juan Jose Austin DATE: September 12, 2022 TIME: 11:37 AM documented in this encounterOur [facility] Instructions* Patient Instructions* Fatimah Salcedo PA-C - 09/12/2022 11:21 AM EST PATIENT PREOPERATIVE INSTRUCTIONS Rita Bhatt MD has scheduled you for your procedure at this surgery center: [facility] Scheduling Office: [phone] --[address] [place] [address]. Please read below carefully for your personalized instructions. Dietary Restrictions: - No solid food after midnight. - You may have 12 ounces of clear liquids (water, clear juices such as apple juice or gatorade, carbonated beverages, clear tea, black coffee, jello) until 2 hours before scheduled arrival at facility. Medications: Unless instructed differently below, stay on all of your medications until your surgery. Approved medications to take the morning of surgery with a sip of water: atorvastatin, hydralazine,isosorbide dinitrate, omeprazole Do not take the losartan the night before or the morning of surgery - No diabetic medication the morning of surgery. - Accucheck day of surgery. - If you take Invokana, Farxiga or Jardiance, hold 3 day pre-op If you take any medications for erectile dysfunction-Cialis (Tadalafil), Levitra, Staxyn (Vardenafil) Viagra (Sildenenafil please do not take these for 48 hours before surgery. If you start any new medications after today's visit, please contact the surgeon's office. Blood Thinning Medications: - Stop NSAIDS (Ibuprofen, Advil, Aleve, Motrin, Celebrex, Mobic, etc.) 7 days before surgery, as directed by your surgeon. - Stop Aspirin 7 days before surgery, as directed by your surgeon. - Stop Vitamin E, ALL multi-vitamins, herbals and dietary supplements 7 days before surgery. - You may take Tylenol (Acetaminophen) or any of your pain medications that do not contain aspirin or NSAIDS as needed. Important Reminders: - Candy, mints, and tobacco products are NOT permitted the morning of surgery. - Hearing aids, dentures and glasses may be worn the morning of surgery. - NO jewelry, body piercings, makeup, hairpins or contacts are to be worn the day of surgery. If you develop symptoms such as a fever, cold, or flu, or have other changes to your health within TWO DAYS of scheduled surgery or the morning of surgery, please contact the surgery center above. Personal Belongings: -Please have photo ID and insurance cards. -If you do not have a copy of advance directives on file with us, please bring a copy with you on the day of surgery. - Leave ALL valuables and money at home or with family members. For Outpatient Procedures: - YOU MUST HAVE A RESPONSIBLE LATEX CASTER TAKE YOU HOME. A BUTTER GRADER OR TOWN ADMINISTRATOR CANNOT BE MADE A RESPONSIBLE LATEX CASTER. - We recommend that a responsible person stays with you overnight to take care of you. - You cannot stay in a hotel alone after outpatient surgery. You will not be permitted to have yoursurgery, if you do not have someone to take care of you. Arrival Time for Surgery: - To obtain your arrival time for surgery, call your physician's office the day before your surgery. - If your surgery is scheduled for Saturday, call the Saturday before. Your surgeon s fruit picker will tell you what time to call the office. - If you have not reached the departmental fruit picker by 5 P.M., call [phone] after 5 P.M. the day before your surgery. Please be aware that emergency situations arise, which may delay or change your surgical time. If this happens, we will notify you as soon as possible and regret any inconvenience. If you already have an Advance Directive, please fax a copy to [phone] or email to for it to be added to your chart. If you do not have an Advance Directive, you can find the appropriate form and more information at [email or web address]. We recommend that youcomplete the Advance Directive form found on the website and bring it with you the day of your surgery. It can be witnessed and scanned into your chart that day. Fatimah Salcedo PA-C documented in this encounterOur [facility] Evaluation note* Encounter Date Diagnosis Assessment Notes Treatment Notes Treatment Clinical Notes Jul, Left sided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 (ICD-10 - K51.50) MD On-Line Other 06-13-2022 History of Present illness Narrative* Jimmy Tejada PA-C - 03/26/2022 5:41 PM EDT This Team Access Model visit is a virtual encounter. It required patient- provider interaction for the medical decision making as documented below. Chief complaint: Preop teaching [facility] PRE-OP NOTE Juan Jose Austin is a 81 year old male. Pre-op Date: March 26, 2022 Date of Procedure: 03/28/22 Does the patient have an active COVID-19 test in Epic? N/A Procedure/Surgery: LASER CYSTOURETHROSCOPY W/ URETEROSCOPY AND/OR PYELOSCOPY W/ LITHOTRIPSY HOLMIUM- right Diagnosis: Urothelial carcinoma Primary Surgeon: MD Bhatt Robert There were no vitals taken for this visit. Pain Assessment: Are you currently having pain? No 0 on a scale of 0 to 10 Surgical Guide Book Status: Patient has been given guide previously, but guide is at home. Dialysis Guide Book Status: Patient has been given guide previously, but guide is at home. Allergies Reviewed: Yes Medications Reviewed: Yes Is patient currently on oral steroids?: No Has the patient had a UTI in the past month?: No. Does the patient have any artificial joints (last 2 years), metal parts, pacemakers or cardiac/ureteral stents in place?: No (Note: Holter monitor) Does the patient have diabetes?: Yes Is the patient routinely taking anticoagulants?: Yes. Patient stopped Aspirin on 03/22/22. Can the patient have an IV put in either arm?: Yes Urine Dip Complete?: Yes URINE CULTURE COMPLETE?: Yes Ostomy/Stoma Nurse appointment made/completed: N/A IMPACT/Medical Clearance: Cleared per IMPACT - N/A [facility] Clinic: Cleared per [facility] - N/A All testing on cureform has been scheduled: Yes Consent Signed: Yes. DOS Orders Placed and Signed: No. Pre-op H&P Done external PATIENT INSTRUCTIONS FOR SURGERY 1.) DO NOT HAVE ANYTHING TO EAT AFTER MIDNIGHT THE DAY BEFORE SURGERY except for certain morning medications as instructed by the doctor. Candy, mints, gum, and smoking are NOT permitted. You may drink clear liquids (Sprite, water, arlen percy) up to two hours before your arrival time on the day of surgery. 2.) Medications to be taken on the morning of surgery with a few sips of water: Coreg, omeprazole, metoprolol, Tylenol, amlodipine 3.) Please bring all your prescribed inhalers (if you have any you normally take) to the hospital. 4.) Arrival time: Call for arrival. 5.) Prep given: No 6.) Lovenox instructions given: N/A 7.) Patient reminded that surgery time provided day before surgery is tentative based on potential changes with transplants. Recommendations: This patient is optimally prepared for surgery. Total time counseling (via Zoom) 20 minutes, total clinic visit 20 minutes Jimmy Tejada PA-C documented in this encounterOur Lady Of [facility]05-31-[facility] History of Present illness Narrative* Rita Bhatt MD - 03/13/2022 2:10 PM EDT VIRTUAL VISIT PROGRESS NOTE This is a virtual visit using CASTT video visit. It required patient-provider interaction for themedical decision making as documented below. Persons Present: patient and daughter (adult) Chief Complaint/Reason: R UTUC in solitary kidney s/p 4 cycles Gemcitabine/carboplatin Clinic note from 11/10/2021 copied and updated. 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 Bhatt. Final pathology revealed scant superficial fragments of high-grade papillary urothelial carcinoma. He was readmitted after surgery with CELSO (Cr >9) from clot in the right renal pelvis obstructingoutflow. He was managed conservatively and his creatinine improved. Last OV 11/10/2021. Plan for referral to med/onc for gemcitabine and carboplatin for neoadjuvant treatment of upper tract urothelial cancer. Would suggest 3-6 cycles. If tolerating well would lean toward 6 cycles. After the chemotherapy we will consider nephroureterectomy but it is a solitary kidneyand therefore may evaluate endoscopically first to see if tumor is now amenable to endoscopic treatment again. Virtual visit in [address] Israel (Hem/onc). Started gemcitabine and carboplatin on 11-27-21 with good tolerance. Completed 4 cycles on 03/01/22 . Per Hem /onc note: After last infusion, he had a spell of dizziness resulting in a fall and head injury. I have discussed to hold off on any further chemotherapy at this time. With recent dose reduction and delays, I do not think the benefits of additional chemotherapy would justify the risks. He will see Dr. Bhatt next week for a repeat endoscopy and response assessment. Follow-up as needed. He presents today for follow up. Interval Hx: Overall, doing well. Voiding well, denies dysuria, gross hematuria. Weight has been stable. Eating and drinking well. Denies UTIs. Drinks 60oz water per day. Currently has a Holter monitor for 30 days, due to shortness of breath. Was admitted for 3 days around 2 weeks prior to today's visit with elevated troponins, low potassium, presumed secondary to diarrhea from chemo. February 19 was last session of 4th cycle of chemo. Data Reviewed: Most recent labs and imaging results. Labs Surgical Pathology 10/26/21 FINAL DIAGNOSIS 1. Renal pelvis neoplasm biopsy #1 (A): Scant superficial fragments of high-grade papillary urothelial carcinoma. -No invasion is identified. 2. Renal pelvis neoplasm biopsy #2 (B): Scant superficial fragments of high-grade papillary urothelial carcinoma. -No invasion is identified. Creatinine Date Value Ref Range Status 03/05/2022 1.63 (H) 0.73 - 1.22 mg/dL Final 02/19/2022 2.10 (H) 0.73 - 1.22 mg/dL Final 02/12/2022 1.98 (H) 0.73 - 1.22 mg/dL Final 02/05/2022 1.92 (H) 0.73 - 1.22 mg/dL Final Imaging CT Urogram 09/26/21 IMPRESSION: Nodular soft tissue centered at the right lower collecting system consistent with urothelial neoplasm. No metastatic disease. CT urogram 07/08/2020 IMPRESSION: Solitary right kidney. No renal parenchymal or upper tract lesions identified. Status post left nephroureterectomy. No masses at the surgical site. Stable infiltrative change left lateral retroperitoneum probably due to postoperative change and/or fat necrosis HISTORY REVIEWED (electronic chart updated): PAST MEDICAL HISTORY Diagnosis Date Bladder cancer (HCC) Cancer (HCC) Incasive Ureteral Cancer Hematuria Hypertension Nephrolithiasis PAST SURGICAL HISTORY Procedure Laterality Date BACK SURGERY HX CARPAL TUNNEL HERNIA REPAIR HX PAST SURGICAL HISTORY OF Left 06/2018 Nephroureterectomy FAMILY HISTORY Problem Relation Age of Onset Asthma Mother other (htn) Mother Asthma Sister Social History Tobacco Use Smoking status: Former Smoker Packs/day: 1.00 Years: 30.00 Pack years: 30.00 Types: Cigarettes Quit date: 1970 Years since quittin.4 Smokeless tobacco: Never Used Substance Use Topics Alcohol use: No Drug use: No Current Outpatient Medications Medication Sig potassium chloride SR (MICRO-K) 10 mEq CR capsule carvedilol (COREG) 3.125 mg tablet hydrALAZINE (APRESOLINE) 50 mg tablet prochlorperazine (COMPAZINE) 10 mg tablet Take 1 tablet by mouth every 6 hours as needed. ondansetron (ZOFRAN) 8 mg tablet Take 1 tablet by mouth every 8 hours as needed for nausea/vomiting. omeprazole (PRILOSEC) 20 mg capsule Take 1 capsule by mouth twice daily. tamsulosin (FLOMAX) 0.4 mg Take 1 capsule by mouth once daily 30 minutes after the same meal empagliflozin (JARDIANCE) 10 mg tablet Take 10 mg by mouth daily with breakfast. furosemide (LASIX) 20 mg tablet Take 20 mg by mouth once daily. isosorbide dinitrate (ISORDIL) 10 mg tablet Take 20 mg by mouth three times daily. metoprolol succinate ER (TOPROL XL) 25 mg 24 hr tablet Take 25 mg by mouth once daily. acetaminophen (TYLENOL) 325 mg tablet Take 2 tablets by mouth every 4 hours as needed for Pain. aspirin, enteric coated (ASPIRIN, ENTERIC COATED) 81 mg EC tablet Take 81 mg by mouth once daily. Glucosamine-Chondroitin 500-400 mg tablet Take 1 tablet by mouth once daily. Fish Oil-[place]-3 Fatty Acids (FISH OIL) 300-1,000 mg cap Take 2 g by mouth once daily. folic acid/multivit-min/lutein (CENTRUM SILVER ORAL) Take 1 tablet by mouth once daily. Cranberry 500 mg cap Take 500 mg by mouth twice daily. balsalazide (COLAZAL) 750 mg capsule Take 1,500 mg by mouth three times daily. amLODIPine (NORVASC) 10 mg tablet Take 10 mg by mouth daily at bedtime. atorvastatin (LIPITOR) 10 mg tablet Take 10 mg by mouth once daily. losartan (COZAAR) 50 mg tablet Take 50 mg by mouth twice daily. No current facility-administered medications for this visit. ALLERGIES Allergen Reactions Tape [Adhesive Tape* Other: See Comments Severe blisters REVIEW OF SYSTEMS: GENERAL: feeling well without fatigue, no recent change in weight RESPIRATORY: no cough, no wheezing or shortness of breath CARDIOVASCULAR: no chest pain, no palpitations : See HPI MUSCULOSKELETAL: denies any painful or swollen joints, no muscle aches As noted in HPI PHYSICAL EXAMINATION: VIDEO EXAM: (if completed, performed via video enabled technology) GENERAL: alert and appropriate, in no distress, well-hydrated, well nourished and happy, smiling, interactive RESPIRATORY: breathing non-labored CHEST: equal chest rise with normal respiratory effort ASSESSMENT: (C64.9) 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, unspecified laterality (HCC) (primary encounter diagnosis) 81 year old male with history of CKD stage 3, HTN, HLD, 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 Bhatt. Final pathology revealed scant superficial fragments of high-grade papillary urothelial carcinoma. Has completed 4 cycles of chemotherapy. PLAN: Schedule cysto right ureteroscopy, laser ablation tumor, stent placement on 03/28/22, pre-ops include labs, ekg, for post chemo surveillance and treatment of any visible tumors. He will do pre-op labs, ekg locally. Jian Espinoza MD I spent a total of 10 minutes on the date of the service which included [id number] patient care, completing clinical documentation, obtaining and/or reviewing separately obtained history and counseling and educating the patient/family/caregiver Scribe Attestation: By signing my name below, IGely, attest that this documentation has been prepared underthe direction and in the presence of Dr. Rita Bhatt MD. Electronically signed: Wendy Ahn, March 13, 2022 2:39 PM Rita Roman MD, personally performed the services described in this documentation. All medical record entries made by the scribe were at my direction and in my presence. I have reviewed the chart and discharge instructions (if applicable) and agree that the record reflects my personal performance and is accurate and complete. Rita Bhatt MD documented in this encounterOur [facility] Of [facility] Evaluation note* Encounter Date Diagnosis Assessment Notes Treatment Notes Treatment Clinical Notes February, Left sided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 (ICD-10 - K51.50) PATIENT TO CONTINUE ON THE MEDICATION DIRECTED. 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 December 05, 2011 bladder washings with rare atypical cells January 10, 2012 left kidney biopsies and renal washings without evidence of malignancy April 05, 2016 urine and renal washing cytology notable for atypical cells May 10, 2016 left kidney and bladder wall biopsies with chronic inflammation March 03, 2018 urine cytology consistent with high grade urothelial carcinoma; Uro[facility] FISH was positive for aneuploidy in 64 cells and del 9p21 in 8 cells May 15, 2018 Cystoscopy with biopsies consistent with 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 Tumor ablated with laser. Right ureteral washings with atypical cells.One dose of mitomycin administered. September 30, 2019 Cystourethroscopy with a low-grade appearing papillary tumor in the right lower pole. Biopsies not possible. 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 Urine cytology positive for high grade urothelial carcinoma October 26, 2021 endoscopic ablation renal pelvis mass biopsy consistent with high grade papillary urothelial carcinoma. No invasion noted. Tumor was not able to be completely resected. Procedure complicated by postoperative CELSO Recommendations to proceed with trial of chemotherapy per tumor board with the goal of shrinking the tumor to allow for endoscopic procedure November 27, 2021 started carboplatin AUC 5 and gemcitabine 1000 mg/m2 day 1 and 8; dose reduced by20% for grade 2 anemia for cycle 4 INTERVAL HISTORY: Juan Jose returns for follow up. After last infusion, patient had significant nausea, vomiting and diarrhea that lasted for almost 1 week. Last Saturday, he had a fall and hurt his head. Heneeded 11 stitches. He is currently undergoing cardiologic work-up to elicit the etiology of the fall. Today, he endorses feeling well overall. Denies any fevers, chills, cough or shortness of breath. ROS is negative except that mentioned in HPI PAST MEDICAL SURGICAL FAMILY AND SOCIAL HISTORY: He has a history of Chronic kidney disease, stage 3 Solitary right kidney Hypertension Hyperlipidemia Benign Prostatic Hypertrophy Low EF 40-45% with hypokinesis on ECHO in October 2021 Previous surgeries include back surgery, carpal tunnel repair, hernia repair and left-sided nephroureterectomy. Family history of significant for lung cancer in father and breast cancer in mother. Hehas a 40 pack year smoking history; quit in in 1980s. He has 4 children, one of which from multiple blood clots. 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 MEDICATIONS AND ALLERGIES: Reviewed PHYSICAL EXAM BP 141/61 Pulse (!) 56 Temp 36.6 C (97.8 F) (Temporal) Resp 16 Ht 163.6 cm (5' 4.41 ) Wt 83 kg (183 lb) SpO2 97% BMI 31.01 kg/m PS - 0, Head atraumatic, no pallor, icterus or lymphadenopathy, lungs clear to auscultation, heart sounds regular, abdomen soft without distension or organomegaly, neuro grossly non-focal, skin without rash, extremities without swelling LABORATORY, IMAGING AND PATHOLOGY CBC and CMP reviewed 2D echocardiogram (scanned) with EF of 40-45% in October 2021 ASSESSMENT AND RECOMMENDATIONS 81 male with right solitary kidney and recurrent tract urothelial carcinoma Patient was diagnosed with a left-sided upper tract urothelial carcinoma for which he underwent a left nephroureterectomy in 2018. At that point, he was evaluated by medical oncology and given the option of doing adjuvant cisplatin- based chemotherapy. Patient had declined this option at that time. In 2019, he had a recurrence of a noninvasive papillary high-grade urothelial carcinoma in the rightrenal pelvis for which he underwent laser ablation. Most recently, based on CT urogram done in September 2021, cytology and ureteroscopy he had local recurrence of a noninvasive papillary high-grade urothelial carcinoma, for which he underwent endoscopic ablation that was incomplete in October 2021. Given his unique situation and in order to avoid nephroureterectomy, we proceeded with a trial of gemcitabine and carboplatin (patient is not a cisplatin candidate given low EF and CKD). Patient has completed 4 cycles of gemcitabine and carboplatin. Side effects of included grade 2 myelosuppression needing dose reduction and grade 2 CINV and diarrhea. After last infusion, he had a spell of dizziness resulting in a fall and head injury. I have discussed to hold off on any further chemotherapy at this time. With recent dose reduction and delays, I do not think the benefits of additional chemotherapy would justify the risks. He will see Dr. Bhatt next week for a repeat endoscopy and response assessment. Follow-up as needed. Soren Perea MD I spent a total of 25 minutes on the date of the service which included preparing to see the patient, [id number] patient care, completing clinical documentation, obtaining and/or reviewing separately obtained history, performing a medically appropriate examination, counseling and educating the pat ient/family/caregiver, ordering medications, tests, or procedures, independently interpreting results (not separately reported) and communicating results to the patient/family/caregiver. 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 December 05, 2011 bladder washings with rare atypical cells January 10, 2012 left kidney biopsies and renal washings without evidence of malignancy April 05, 2016 urine and renal washing cytology notable for atypical cells May 10, 2016 left kidney and bladder wall biopsies with chronic inflammation March 03, 2018 urine cytology consistent with high grade urothelial carcinoma; UroVysion FISH was positive for aneuploidy in 64 cells and del 9p21 in 8 cells May 15, 2018 Cystoscopy with biopsies consistent with 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 Tumor ablated with laser. Right ureteral washings with atypical cells.One dose of mitomycin administered. September 30, 2019 Cystourethroscopy with a low-grade appearing papillary tumor in the right lower pole. Biopsies not possible. 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 Urine cytology positive for high grade urothelial carcinoma October 26, 2021 endoscopic ablation renal pelvis mass biopsy consistent with high grade papillary urothelial carcinoma. No invasion noted. Tumor was not able to be completely resected. Procedure complicated by postoperative CELSO Recommendations to proceed with trial of chemotherapy per tumor board with the goal of shrinking the tumor to allow for endoscopic procedure November 27, 2021 started carboplatin AUC 5 and gemcitabine 1000 mg/m2 day 1 and 8; dose reduced by20% for grade 2 anemia starting cycle 4 INTERVAL HISTORY: Juan Jose returns for follow up. Had 3 days of constipation after his last cycle of treatment and finally had a bowel movement on Saturday evening. Then he had 12 hours of vomiting. He took an antiemetic and by Saturday morning it resolved. He has felt fine since. Denies any fevers, chills, cough or shortness of breath. ROS is negative except that mentioned in HPI PAST MEDICAL SURGICAL FAMILY AND SOCIAL HISTORY: He has a history of Chronic kidney disease, stage 3 Solitary right kidney Hypertension Hyperlipidemia Benign Prostatic Hypertrophy Low EF 40-45% with hypokinesis on ECHO in October 2021 Previous surgeries include back surgery, carpal tunnel repair, hernia repair and left-sided nephroureterectomy. Family history of significant for lung cancer in father and breast cancer in mother. Hehas a 40 pack year smoking history; quit in in . He has 4 children, one of which from multiple blood clots. 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 MEDICATIONS AND ALLERGIES: Reviewed PHYSICAL EXAM BP 127/59 Pulse 67 Temp 36.4 C (97.6 F) (Temporal) Resp 18 Ht 163.6 cm (5' 4.41 ) Wt 82.2kg (181 lb 3.2 oz) SpO2 100% BMI 30.71 kg/m PS - 0 General: Alert and oriented, no distress, pleasant and cooperative. Heart: Regular, normal S1 and S2, no murmurs, rubs, or gallops Lungs: Clear to auscultation bilaterally Abdomen: Benign Extremities: Feet/ankles without edema, posterior tibial pulses full and symmetrical LABORATORY, IMAGING AND PATHOLOGY CBC and CMP reviewed: ANC [address] Perea 2D echocardiogram (scanned) with EF of 40-45% in October 2021 ASSESSMENT AND RECOMMENDATIONS 81 male with right solitary kidney and recurrent tract urothelial carcinoma Patient was diagnosed with a left-sided upper tract urothelial carcinoma for which he underwent a left nephroureterectomy in 2018. At that point, he was evaluated by medical oncology and given the option of doing adjuvant cisplatin- based chemotherapy. Patient had declined this option at that time. In 2018, he had a recurrence of a noninvasive papillary high-grade urothelial carcinoma in the rightrenal pelvis for which he underwent laser ablation. Most recently, based on CT urogram done in September 2021, cytology and ureteroscopy he had local recurrence of a noninvasive papillary high-grade urothelial carcinoma, for which he underwent endoscopic ablation that was incomplete in October 2021. Given his unique situation and in order to avoid nephroureterectomy, we proceeded with a trial of gemcitabine and carboplatin (patient is not a cisplatin candidate given low EF and CKD). He was started on gemcitabine and carboplatin on 11-27-21 with good tolerance. Previous cycle was associated with shortness of breath. This was likely related to him being more anemic than usual. Secondary to symptomatic anemia, his chemotherapy doses were decreased by 20% starting cycle 4. Today heis here for day 8 of cycle 4 with borderline ANC of 990. Discussed with Dr. Perea who agreed, will proceed with cycle 4 day 8. Educated patient on neutropenic precautions. Will plan to reach out to urology team to discuss repeat endoscopy. We will see him back in 2 weeks. 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 December 05, 2011 bladder washings with rare atypical cells January 10, 2012 left kidney biopsies and renal washings without evidence of malignancy April 05, 2016 urine and renal washing cytology notable for atypical cells May 10, 2016 left kidney and bladder wall biopsies with chronic inflammation March 03, 2018 urine cytology consistent with high grade urothelial carcinoma; UroVysion FISH was positive for aneuploidy in 64 cells and del 9p21 in 8 cells May 15, 2018 Cystoscopy with biopsies consistent with 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 Tumor ablated with laser. Right ureteral washings with atypical cells.One dose of mitomycin administered. September 30, 2019 Cystourethroscopy with a low-grade appearing papillary tumor in the right lower pole. Biopsies not possible. 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 Urine cytology positive for high grade urothelial carcinoma October 26, 2021 endoscopic ablation renal pelvis mass biopsy consistent with high grade papillary urothelial carcinoma. No invasion noted. Tumor was not able to be completely resected. Procedure complicated by postoperative CELSO Recommendations to proceed with trial of chemotherapy per tumor board with the goal of shrinking the tumor to allow for endoscopic procedure November 27, 2021 started carboplatin AUC 5 and gemcitabine 1000 mg/m2 day 1 and 8; dose reduced by20% for grade 2 anemia starting cycle 4 INTERVAL HISTORY: Juan Jose returns for consideration of cycle 4. He is here with his , Tatiana. Since last visit, he has significantly improved and his dyspnea has resolved. ROS is negative except that mentioned in HPI PAST MEDICAL SURGICAL FAMILY AND SOCIAL HISTORY: He has a history of Chronic kidney disease, stage 3 Solitary right kidney Hypertension Hyperlipidemia Benign Prostatic Hypertrophy Low EF 40-45% with hypokinesis on ECHO in October 2021 Previous surgeries include back surgery, carpal tunnel repair, hernia repair and left-sided nephroureterectomy. Family history of significant for lung cancer in father and breast cancer in mother. Hehas a 40 pack year smoking history; quit in in 1980s. He has 4 children, one of which from multiple blood clots. 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 MEDICATIONS AND ALLERGIES: Reviewed PHYSICAL EXAM BP 149/62 Pulse (!) 52 Temp 36.3 C (97.4 F) (Temporal) Resp 18 Ht 163.6 cm (5' 4.41 ) Wt 84.5 kg (186 lb 3.2 oz) SpO2 99% BMI 31.56 kg/m PS - 0, Head atraumatic, no pallor, icterus or lymphadenopathy, lungs clear to auscultation, heart sounds regular, abdomen soft without distension or organomegaly, neuro grossly non-focal, skin without rash, extremities without swelling LABORATORY, IMAGING AND PATHOLOGY CBC and CMP reviewed 2D echocardiogram (scanned) with EF of 40-45% in October 2021 ASSESSMENT AND RECOMMENDATIONS 81 male with right solitary kidney and recurrent tract urothelial carcinoma Patient was diagnosed with a left-sided upper tract urothelial carcinoma for which he underwent a left nephroureterectomy in 2017. At that point, he was evaluated by medical oncology and given the option of doing adjuvant cisplatin- based chemotherapy. Patient had declined this option at that time. In 2019, he had a recurrence of a noninvasive papillary high-grade urothelial carcinoma in the rightrenal pelvis for which he underwent laser ablation. Most recently, based on CT urogram done in September 2021, cytology and ureteroscopy he had local recurrence of a noninvasive papillary high-grade urothelial carcinoma, for which he underwent endoscopic ablation that was incomplete in October 2021. Given his unique situation and in order to avoid nephroureterectomy, we proceeded with a trial of gemcitabine and carboplatin (patient is not a cisplatin candidate given low EF and CKD). He was started on gemcitabine and carboplatin on 11-27-21 with good tolerance. Previous cycle was associated with shortness of breath. This was likely related to him being more anemic than usual. Secondary to symptomatic anemia, I will decrease his chemotherapy doses by 20% starting cycle 4. Follow-up in 1 week for day 8. Plan is to repeat endoscopy evaluation after 3-6 cycle of chemotherapy depending on tolerance. Soren Perea MD I spent a total of 24 minutes on the date of the service which included preparing to see the patient, [id number] patient care, completing clinical documentation, obtaining and/or reviewing separately obtained history, performing a medically appropriate examination, counseling and educating the pat ient/family/caregiver, ordering medications, tests, or procedures, independently interpreting results (not separately reported) and communicating results to the patient/family/caregiver. 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 December 05, 2011 bladder washings with rare atypical cells January 10, 2012 left kidney biopsies and renal washings without evidence of malignancy April 05, 2016 urine and renal washing cytology notable for atypical cells May 10, 2016 left kidney and bladder wall biopsies with chronic inflammation March 03, 2018 urine cytology consistent with high grade urothelial carcinoma; UroVysion FISH was positive for aneuploidy in 64 cells and del 9p21 in 8 cells May 15, 2018 Cystoscopy with biopsies consistent with 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 Tumor ablated with laser. Right ureteral washings with atypical cells.One dose of mitomycin administered. September 30, 2019 Cystourethroscopy with a low-grade appearing papillary tumor in the right lower pole. Biopsies not possible. 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 Urine cytology positive for high grade urothelial carcinoma October 26, 2021 endoscopic ablation renal pelvis mass biopsy consistent with high grade papillary urothelial carcinoma. No invasion noted. Tumor was not able to be completely resected. Procedure complicated by postoperative CELSO Recommendations to proceed with trial of chemotherapy per tumor board with the goal of shrinking the tumor to allow for endoscopic procedure November 27, 2021 started carboplatin and gemcitabine INTERVAL HISTORY: Juan Jose returns for consideration of cycle 4. In the last 3 to 4 days, patient has had shortness of breath on exertion. He especially noticed this while working. He denies any chest pain, cough, fevers or chills. No feeling full sensation. No other dose-limiting toxicities. ROS is negative except that mentioned in HPI PAST MEDICAL SURGICAL FAMILY AND SOCIAL HISTORY: He has a history of Chronic kidney disease, stage 3 Solitary right kidney Hypertension Hyperlipidemia Benign Prostatic Hypertrophy Low EF 40-45% with hypokinesis on ECHO in October 2021 Previous surgeries include back surgery, carpal tunnel repair, hernia repair and left-sided nephroureterectomy. Family history of significant for lung cancer in father and breast cancer in mother. Hehas a 40 pack year smoking history; quit in in 1980s. He has 4 children, one of which from multiple blood clots. 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 MEDICATIONS AND ALLERGIES: Reviewed PHYSICAL EXAM BP 154/62 Pulse (!) 57 Temp 36.4 C (97.6 F) (Temporal) Resp 18 Ht 163.6 cm (5' 4.41 ) Wt 84.9 kg (187 lb 3.2 oz) SpO2 100% BMI 31.73 kg/m PS - 0, Head atraumatic, no pallor, icterus or lymphadenopathy, lungs clear to auscultation, heart sounds regular, abdomen soft without distension or organomegaly, neuro grossly non-focal, skin without rash, extremities without swelling LABORATORY, IMAGING AND PATHOLOGY CBC and CMP reviewed 2D echocardiogram (scanned) with EF of 40-45% in October 2021 ASSESSMENT AND RECOMMENDATIONS 81 male with right solitary kidney and recurrent tract urothelial carcinoma Patient was diagnosed with a left-sided upper tract urothelial carcinoma for which he underwent a left nephroureterectomy in 2017. At that point, he was evaluated by medical oncology and given the option of doing adjuvant cisplatin- based chemotherapy. Patient had declined this option at that time. In 2019, he had a recurrence of a noninvasive papillary high-grade urothelial carcinoma in the rightrenal pelvis for which he underwent laser ablation. Most recently, based on CT urogram done in September 2021, cytology and ureteroscopy he had local recurrence of a noninvasive papillary high-grade urothelial carcinoma, for which he underwent endoscopic ablation that was incomplete in October 2021. Given his unique situation and in order to avoid nephroureterectomy, we proceeded with a trial of gemcitabine and carboplatin (patient is not a cisplatin candidate given low EF and CKD). He was started on gemcitabine and carboplatin on 11-27-21 with good tolerance. Labs today show hemoglobin 9.5 g/dL and platelets 133,000. The anemia likely explains his shortness of breath. Hold chemotherapy today and return in 1 week with repeat labs and consideration of cycle 4. If symptoms worsen, we will do additional work-up as deemed appropriate. Starting cycle 4, I will decrease chemotherapy by 20%. Plan is to repeat endoscopy evaluation after 3-6 cycle of chemotherapy depending on tolerance. Soren Perea MD I spent a total of 24 minutes on the date of the service which included preparing to see the patient, [id number] patient care, completing clinical documentation, obtaining and/or reviewing separately obtained history, performing a medically appropriate examination, counseling and educating the pat ient/family/caregiver, ordering medications, tests, or procedures, independently interpreting results (not separately reported) and communicating results to the patient/family/caregiver. documented in this encounterOur [facility] Of [facility] [place]04-[facility] History of Present illness Narrative* Belia Martínez RN - 01/22/2022 1:27 PM EDT . documented in this encounterOur Lady Of [facility] [place]-2022 History of Present illness Narrative* Irma Ariza RN - 01/15/2022 1:38 PM EDT . documented in this encounterOur [facility] Of [facility] [place]-2022 History of Present illness Narrative* Corazon Maxwell PA-C - 01/15/2022 1:00 PM EDT ONCOLOGY FOLLOW UP (Elements copied from Dr. 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 December 05, 2011 bladder washings with rare atypical cells January 10, 2012 left kidney biopsies and renal washings without evidence of malignancy April 05, 2016 urine and renal washing cytology notable for atypical cells May 10, 2016 left kidney and bladder wall biopsies with chronic inflammation March 03, 2018 urine cytology consistent with high grade urothelial carcinoma; UroVysion FISH was positive for aneuploidy in 64 cells and del 9p21 in 8 cells May 15, 2018 Cystoscopy with biopsies consistent with 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 Tumor ablated with laser. Right ureteral washings with atypical cells.One dose of mitomycin administered. September 30, 2019 Cystourethroscopy with a low-grade appearing papillary tumor in the right lower pole. Biopsies not possible. 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 Urine cytology positive for high grade urothelial carcinoma October 26, 2021 endoscopic ablation renal pelvis mass biopsy consistent with high grade papillary urothelial carcinoma. No invasion noted. Tumor was not able to be completely resected. Procedure complicated by postoperative CELSO Recommendations to proceed with trial of chemotherapy per tumor board with the goal of shrinking the tumor to allow for endoscopic procedure November 27, 2021 started carboplatin and gemcitabine INTERVAL HISTORY: Juan Jose returns for follow up. Treatment was held last week due to thrombocytopenia. He has been feeling well and denies any new fevers, chills, cough, shortness of breath. ROS is negative except that mentioned in HPI PAST MEDICAL SURGICAL FAMILY AND SOCIAL HISTORY: He has a history of Chronic kidney disease, stage 3 Solitary right kidney Hypertension Hyperlipidemia Benign Prostatic Hypertrophy Low EF 40-45% with hypokinesis on ECHO in October 2021 Previous surgeries include back surgery, carpal tunnel repair, hernia repair and left-sided nephroureterectomy. Family history of significant for lung cancer in father and breast cancer in mother. Hehas a 40 pack year smoking history; quit in in 1980s. He has 4 children, one of which from multiple blood clots. 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 MEDICATIONS AND ALLERGIES: Reviewed PHYSICAL EXAM BP 145/63 Pulse 63 Temp 36.7 C (98.1 F) (Temporal) Resp 16 Ht 163.6 cm (5' 4.41 ) Wt 84.3kg (185 lb 12.8 oz) SpO2 98% BMI 31.49 kg/m PS - 0 PHYSICAL EXAMINATION General: Alert and oriented, no distress, pleasant and cooperative. Heart: Regular, normal S1 and S2, no murmurs, rubs, or gallops Lungs: Clear to auscultation bilaterally Abdomen: Benign Extremities: Feet/ankles without edema, posterior tibial pulses full and symmetrical LABORATORY, IMAGING AND PATHOLOGY CBC and CMP reviewed. 2D echocardiogram (scanned) with EF of 40-45% in October 2021 ASSESSMENT AND RECOMMENDATIONS 81 male with right solitary kidney and recurrent tract urothelial carcinoma Patient was diagnosed with a left-sided upper tract urothelial carcinoma for which he underwent a left nephroureterectomy in 2018. At that point, he was evaluated by medical oncology and given the option of doing adjuvant cisplatin- based chemotherapy. Patient had declined this option at that time. In 2018, he had a recurrence of a noninvasive papillary high-grade urothelial carcinoma in the rightrenal pelvis for which he underwent laser ablation. Most recently, based on CT urogram done in September 2021, cytology and ureteroscopy he had local recurrence of a noninvasive papillary high-grade urothelial carcinoma, for which he underwent endoscopic ablation that was incomplete in October 2021. Given his unique situation and in order to avoid nephroureterectomy, we proceeded with a trial of gemcitabine and carboplatin (patient is not a cisplatin candidate given low EF and CKD). He was started on gemcitabine and carboplatin on 11-27-21 with good tolerance. Cycle 3 day 1 was delayed due to thrombocytopenia which has resolved. Will proceed today with cycle 3 and see him again next week for day 8. 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 December 05, 2011 bladder washings with rare atypical cells January 10, 2012 left kidney biopsies and renal washings without evidence of malignancy April 05, 2016 urine and renal washing cytology notable for atypical cells May 10, 2016 left kidney and bladder wall biopsies with chronic inflammation March 03, 2018 urine cytology consistent with high grade urothelial carcinoma; Uro[facility] FISH was positive for aneuploidy in 64 cells and del 9p21 in 8 cells May 15, 2018 Cystoscopy with biopsies consistent with 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 Tumor ablated with laser. Right ureteral washings with atypical cells.One dose of mitomycin administered. September 30, 2019 Cystourethroscopy with a low-grade appearing papillary tumor in the right lower pole. Biopsies not possible. 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 Urine cytology positive for high grade urothelial carcinoma October 26, 2021 endoscopic ablation renal pelvis mass biopsy consistent with high grade papillary urothelial carcinoma. No invasion noted. Tumor was not able to be completely resected. Procedure complicated by postoperative CELSO Recommendations to proceed with trial of chemotherapy per tumor board with the goal of shrinking the tumor to allow for endoscopic procedure November 27, 2021 started carboplatin and gemcitabine INTERVAL HISTORY: Ramon comes back for follow-up. He is here for cycle 3-day 1 of chemotherapy. Overall doing well. No dose-limiting toxicities. He felt a little dizzy after last treatment but otherwise no side effects. ROS is negative except that mentioned in HPI PAST MEDICAL SURGICAL FAMILY AND SOCIAL HISTORY: He has a history of Chronic kidney disease, stage 3 Solitary right kidney Hypertension Hyperlipidemia Benign Prostatic Hypertrophy Low EF 40-45% with hypokinesis on ECHO in October 2021 Previous surgeries include back surgery, carpal tunnel repair, hernia repair and left-sided nephroureterectomy. Family history of significant for lung cancer in father and breast cancer in mother. Hehas a 40 pack year smoking history; quit in in 1980s. He has 4 children, one of which from multiple blood clots. 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 MEDICATIONS AND ALLERGIES: Reviewed PHYSICAL EXAM BP 144/80 Pulse 62 Temp 36.2 C (97.1 F) (Temporal) Resp 18 Ht 163.6 cm (5' 4.41 ) Wt 83.6kg (184 lb 3.2 oz) SpO2 98% BMI 31.22 kg/m PS - 0, Head atraumatic, no pallor, icterus or lymphadenopathy, lungs clear to auscultation, heart sounds regular, abdomen soft without distension or organomegaly, neuro grossly non-focal, skin without rash, extremities without swelling LABORATORY, IMAGING AND PATHOLOGY CBC and CMP reviewed, ANC 1.26 2D echocardiogram (scanned) with EF of 40-45% in October 2021 ASSESSMENT AND RECOMMENDATIONS 81 male with right solitary kidney and recurrent tract urothelial carcinoma Patient was diagnosed with a left-sided upper tract urothelial carcinoma for which he underwent a left nephroureterectomy in 2017. At that point, he was evaluated by medical oncology and given the option of doing adjuvant cisplatin- based chemotherapy. Patient had declined this option at that time. In 2018, he had a recurrence of a noninvasive papillary high-grade urothelial carcinoma in the rightrenal pelvis for which he underwent laser ablation. Most recently, based on CT urogram done in September 2021, cytology and ureteroscopy he had local recurrence of a noninvasive papillary high-grade urothelial carcinoma, for which he underwent endoscopic ablation that was incomplete in October 2021. Given his unique situation and in order to avoid nephroureterectomy, we proceeded with a trial of gemcitabine and carboplatin (patient is not a cisplatin candidate given low EF and CKD). He was started on gemcitabine and carboplatin on 11-27-21 with good tolerance. Blood work today shows platelet count of [id number]. I will hold treatment today and continue with cycle 3 day 1 in a week. The plan is to repeat endoscopy evaluation after 3-6 cycles of chemotherapy based on tolerance. Soren Perea MD I spent a total of 20 minutes on the date of the service which included preparing to see the patient, [id number] patient care, completing clinical documentation, obtaining and/or reviewing separately obtained history, performing a medically appropriate examination, counseling and educating the pat ient/family/caregiver, ordering medications, tests, or procedures, independently interpreting results (not separately reported) and communicating results to the patient/family/caregiver. documented in this encounterOur [facility]09-25-[facility] History of Present illness Narrative* ArgentiLinda CT (Ct) - 07/08/2020 11:20 AM EDT Radiology Service Progress Note DATE OF SERVICE: July 08, 2020 TIME: 11:15 AM PATIENT IDENTITY VERIFICATION COMPLETED USING TWO (2) STANDARD IDENTIFIERS: Name and Date of confirmed by patient verbally. FALL SCREENING: Has the patient had 2 falls in the last year or 1 fall with injury or currently using an Ambulatory Assistive Device (Walker, Cane, Wheelchair, Crutches, etc.)? No PATIENT GENDER DATA: Female. status: : No status: NO. PATIENT RELEVANT IMPLANT DATA REVIEWED: Not Applicable ALLERGIES: Reviewed and unchanged CONTRAST ALLERGY: NO. EXAM: CT -CONTRAST INDUCED NEPHROPATHY RISK FACTORS: Patient age > 60 years CREATININE: Creatinine Date Value Ref Range Status 10/28/2019 1.73 (H) 0.73 - 1.22 mg/dL Final 08/11/2019 1.70 (H) 0.73 - 1.22 mg/dL Final eGFR-All Other Races Date Value Ref Range Status 10/28/2019 38 . Final Comment: eGFR (Estimated GFR) Units of measure: mL/min/1.73 meters squared eGFR is derived from the reexpressed MDRD Study equation using the following parameters: serum creatinine, age, gender and race. The creatinine assay has been calibrated to be traceable to IDMS. An eGFR <60 mL/min/1.73m2 for >3 months is consistent with chronic kidney disease. Refer to KDOQI guidelines for clinical interpretation. In patients with unstable renal function, e.g. those with acute kidney injury, the eGFR may not accurately reflect actual GFR. eGFR- Date Value Ref Range Status 10/28/2019 46 Final P.O.C.T. RESULTS: N/A July 08, 2020 TREATMENT: N/A PERIPHERAL IV DATA: Ambulatory: A peripheral IV was started in the Right antecubital site with a Angio cath: 22 gauge. RADIOLOGY DEPARTMENT: CT; Exam(s) Completed: Abdomen/Pelvis SIGNATURE: LU Cain PATIENT NAME: Juan Jose Austin DATE: July 08, 2020 TIME: 11:15 AM documented in this encounterOur [facility]Evaluation + Plan note Future Appointments Appointment Date:12/18/2022 01:00:00 PM Scheduled Provider:Jian RODRIGUEZ MD Location:[facility] Appointment Type:URO Procedure 15 min [facility] Evaluation note* Diagnosis Malignant neoplasm of ureter, unspecified laterality (HCC)- Primary documented in this encounter [facility] note* Diagnosis Malignant neoplasm of ureter, unspecified laterality (HCC)- Primary documented in this encounter [facility] note* Diagnosis Malignant neoplasm of ureter, unspecified laterality (HCC)- Primary documented in this encounter [facility] note* Diagnosis Malignant neoplasm of ureter, unspecified laterality (HCC)- Primary documented in this encounter [facility] note* Diagnosis Malignant neoplasm of ureter, unspecified laterality (HCC)- Primary documented in this encounter [facility] note* Diagnosis Malignant neoplasm of ureter, unspecified laterality (HCC)- Primary documented in this encounter [facility] note* Diagnosis Malignant neoplasm of ureter, unspecified laterality (HCC)- Primary documented in this encounter [facility] note* Diagnosis Malignant neoplasm of ureter, unspecified laterality (HCC)- Primary documented in this encounter [facility] note* Diagnosis Urothelial carcinoma (HCC)- Primary Other malignant neoplasm without specification of site Urothelial carcinoma (HCC) Other malignant neoplasm without specification of site documented in this encounter [facility] note* Diagnosis Urothelial carcinoma (HCC)- Primary Other malignant neoplasm without specification of site Urothelial carcinoma (HCC) Other malignant neoplasm without specification of site documented in this encounter [facility] note* Diagnosis 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, unspecified laterality (HCC)- Primary Acute cystitis without hematuria Acute cystitis documented in this encounter [facility] note* Diagnosis Urothelial carcinoma (HCC)- Primary Other malignant neoplasm without specification of site Urothelial carcinoma (HCC) Other malignant neoplasm without specification of site documented in this encounter [facility] note* Diagnosis Pre-op evaluation- Primary Preoperative examination, unspecified Hypertensive heart disease with heart failure (HCC) 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 Gastro-esophageal reflux disease without esophagitis Esophageal reflux Ulcerative pancolitis (HCC) [place]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 Stage 3 chronic kidney disease, unspecified whether stage 3a or 3b CKD (HCC) 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, 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, except renal pelvis (HCC) Malignant neoplasm of kidney, except pelvis Malignant neoplasm of urinary bladder, unspecified site (HCC) [facility]* Diagnosis Urothelial carcinoma (HCC)- Primary Other malignant neoplasm without specification of site Malignant neoplasm of right kidney, except renal pelvis (HCC) Malignant neoplasm of kidney, except pelvis Malignant neoplasm of urinary bladder, unspecified site (HCC) [facility]* Diagnosis Screening for genitourinary condition Screening for other and unspecified genitourinary condition Malignant neoplasm of right kidney, except renal pelvis (HCC) Malignant neoplasm of kidney, except pelvis Malignant neoplasm of urinary bladder, unspecified site (HCC) [facility]* Diagnosis 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, unspecified laterality (HCC)- Primary documented in this encounter [facility] noteNo Packet DesignUniversity of [place] Other Evaluation note* Diagnosis CLESO (acute kidney injury) (HCC)- Primary Acute kidney failure, unspecified documented in this encounter [facility] note* Diagnosis 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 Malignant neoplasm of other specified sites of bladder documented in this encounter [facility] note* Diagnosis 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 Malignant neoplasm of other specified sites of bladder Malignant neoplasm of right kidney, except renal pelvis (HCC) Malignant neoplasm of kidney, except pelvis Malignant neoplasm of ureter, unspecified laterality (HCC) [facility]* Diagnosis 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 Malignant neoplasm of other specified sites of bladder Malignant neoplasm of ureter, unspecified laterality (HCC) [facility]* Diagnosis 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 Malignant neoplasm of other specified sites of bladder [facility]* Diagnosis 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 Malignant neoplasm of other specified sites of bladder Malignant neoplasm of right kidney, except renal pelvis (HCC) Malignant neoplasm of kidney, except pelvis Malignant neoplasm of ureter, unspecified laterality (HCC) [facility] Diagnosis 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 Malignant neoplasm of other specified sites of bladder [facility] 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 Malignant neoplasm of other specified sites of bladder Malignant neoplasm of right kidney, except renal pelvis (HCC) Malignant neoplasm of kidney, except pelvis Malignant neoplasm of ureter, unspecified laterality (HCC) [facility] Dry mouth- Primary Disturbance of salivary secretion Other general symptoms and signs [facility] Diagnosis 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 Malignant neoplasm of other specified sites of bladder [facility]* Diagnosis 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 Malignant neoplasm of other specified sites of bladder Malignant neoplasm of right kidney, except renal pelvis (HCC) Malignant neoplasm of kidney, except pelvis Malignant neoplasm of ureter, unspecified laterality (HCC) [facility] Diagnosis 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 Malignant neoplasm of other specified sites of bladder [facility] Diagnosis 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 Malignant neoplasm of other specified sites of bladder Malignant neoplasm of right kidney, except renal pelvis (HCC) Malignant neoplasm of kidney, except pelvis Malignant neoplasm of ureter, unspecified laterality (HCC) [facility] Diagnosis 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, unspecified laterality (HCC) [facility] Diagnosis Malignant neoplasm of urothelium (HCC)- Primary Malignant neoplasm of other specified sites of urinary organs [facility] Diagnosis 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 Malignant neoplasm of other specified sites of bladder Malignant neoplasm of right kidney, except renal pelvis (HCC) Malignant neoplasm of kidney, except pelvis Malignant neoplasm of ureter, unspecified laterality (HCC) [facility] Diagnosis 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 Malignant neoplasm of other specified sites of bladder Malignant neoplasm of ureter, unspecified laterality (HCC) Disorder of thyroid Unspecified disorder of thyroid [facility] Diagnosis 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 Malignant neoplasm of other specified sites of bladder Malignant neoplasm of right kidney, except renal pelvis (HCC) Malignant neoplasm of kidney, except pelvis Malignant neoplasm of ureter, unspecified laterality (HCC) documented [facility] encounter [facility] Diagnosis 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 Malignant neoplasm of other specified sites of bladder Malaise and fatigue Other malaise and fatigue [facility]* Diagnosis 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 Malignant neoplasm of other specified sites of bladder Malignant neoplasm of right kidney, except renal pelvis (HCC) Malignant neoplasm of kidney, except pelvis Malignant neoplasm of ureter, unspecified laterality (HCC) [facility]* Diagnosis 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 Malignant neoplasm of other specified sites of bladder [facility]* Diagnosis Urothelial cancer (HCC)- Primary Malignant neoplasm of other specified sites of urinary organs [facility]* Diagnosis 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 Malignant neoplasm of other specified sites of bladder Malignant neoplasm of ureter, unspecified laterality (HCC) Malaise and fatigue Other malaise and fatigue documented in this encounter [facility] Diagnosis 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 Malignant neoplasm of other specified sites of bladder Malignant neoplasm of right kidney, except renal pelvis (HCC) Malignant neoplasm of kidney, except pelvis Malignant neoplasm of ureter, unspecified laterality (HCC) [facility] Narrative - Reported* Type Description Date Medical History colitis Medical History hyperlipidemia Medical History HTN Medical History KIDNEY CANCER Surgical History KIDNEY REMOVED MD On-Line Other History general Narrative - Reported* Type Description Date Medical History colitis Medical History hyperlipidemia Medical History HTN Medical History KIDNEY CANCER Surgical History KIDNEY REMOVED Hospitalization History No Hospitalization histo ry information MD On-Line Other Hospital course Narrative No data available for this section [facility] [employer] Progress note No data available for this section [facility] [employer] Reason for referral (narrative)* Outpatient Procedure (Routine) - Pending Review Specialty Diagnoses / Procedures Referred By Contac t Referred To Contact [facility] [place] Diagnoses 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, unspecified laterality (HCC) Procedures ECG COMPLETE ECG ROUTINE ECG W/LEAST 12 LDS W/I&R Rita Bhatt MD [id number] [place] [id number] [facility] [address] Referral ID Status Reason Start Date Expiration Date Visits Requested Visits Authorized [id number] Pending Review Auto-Generat ed Referral 03/13/2022 03/13/2023 1 1 [facility] Outpatient Procedure (Routine) - Closed Specialty Diagnoses / Procedures Referred By Contac t Referred To Contact [facility] [place] Diagnoses Pre-op evaluation Procedures ECG COMPLETE ECG ROUTINE ECG W/LEAST 12 LDS W/I&R Fatimah Salcedo PA-C [address] [place] [address] [place] [address] Referral ID Status Reason Start Date Expiration Date V isits Requested Visits Authorized [id number] Closed Auto-Generate d Referral 09/12/2022 09/12/2023 1 1 [facility] Summary Purpose Family History No Family History Records FoundNo Family History Records FoundNo Family History Records FoundNo Family History Records FoundNo Family History Records FoundNo Family History Records FoundNo Family History Records Found Advance Directives No Advanced Directives Records FoundDocuments on File Type Date Recorded Patient Grinder Expl anation Advance Directive(s) 11/01/2021 2:32 PM Advance Directive(s) 10/28/2019 10:37 AM Advance Directive(s) 09/30/2019 10:07 AM Advance Directive(s) 09/15/2019 2:16 PM Advance Directive(s) 08/11/2019 11:16 AM Advance Directive(s) 08/11/2019 11:21 AM Documents on File Type Date Recorded Patient Grinder Expl anation Advance Directive(s) 11/01/2021 2:32 PM Advance Directive(s) 10/28/2019 10:37 AM Advance Directive(s) 09/30/2019 10:07 AM Advance Directive(s) 09/15/2019 2:16 PM Advance Directive(s) 08/11/2019 11:16 AM Advance Directive(s) 08/11/2019 11:21 AM Documents on File Type Date Recorded Patient Grinder Expl anation Advance Directive(s) 03/14/2022 4:48 PM Advance Directive(s) 11/01/2021 2:32 PM Advance Directive(s) 10/28/2019 10:37 AM Advance Directive(s) 09/30/2019 10:07 AM Advance Directive(s) 09/15/2019 2:16 PM Advance Directive(s) 08/11/2019 11:16 AM Advance Directive(s) 08/11/2019 11:21 AM Documents on File Type Date Recorded Patient Grinder Expl anation Advance Directive(s) 03/14/2022 4:48 PM Advance Directive(s) 11/01/2021 2:32 PM Advance Directive(s) 10/28/2019 10:37 AM Advance Directive(s) 09/30/2019 10:07 AM Advance Directive(s) 09/15/2019 2:16 PM Advance Directive(s) 08/11/2019 11:16 AM Advance Directive(s) 08/11/2019 11:21 AM Documents on File Type Date Recorded Patient Grinder Expl anation Advance Directive(s) 05/04/2022 1:37 PM Advance Directive(s) 03/14/2022 4:48 PM Advance Directive(s) 11/01/2021 2:32 PM Advance Directive(s) 10/28/2019 10:37 AM Advance Directive(s) 09/30/2019 10:07 AM Advance Directive(s) 09/15/2019 2:16 PM Advance Directive(s) 08/11/2019 11:16 AM Advance Directive(s) 08/11/2019 11:21 AM Documents on File Type Date Recorded Patient Grinder Expl anation Advance Directive(s) 08/11/2019 11:21 AM Documents on File Type Date Recorded Patient Grinder Expl anation Advance Directive(s) 08/11/2019 11:21 AM Medications Administered Section Inactive Administered Medications - up to 3 most recent administrations Medication Order MAR Action Action Date Dose Rate Site CARBOplatin 302 mg in NaCl 0.9% 250 mL (PARAPLATIN) 302 mg (Target AUC = 5), INTRAVENOUS, Administer over 30 Minutes, ONCE, 1 dose, On Sat01/15/22 at 1330, Approx Total Volume: mL EXP:01/16/2022@1330 Hazardous Chemotherapy Drug: Use appropriate PPE. Antineoplastic Irritant. New Bag/Syringe/Bottle 01/15/2022 2:46 PM EDT 302 mg dexAMETHasone 10 mg/NS 50 mL (PYXIS) 10 mg ivpb 10 mg, INTRAVENOUS, ONCE, 1 dose, On Sat01/15/22 at 1330, Refrigerate. New Bag/Syringe/Bottle 01/15/2022 1:41 PM EDT 10 mg gemcitabine 1,950 mg in NaCl 0.9% 250 mL (GEMZAR) 1,950 mg (1,000 mg/m2 1.95 m2 Treatment Plan BSA from Recorded weight), INTRAVENOUS, Administer over 30 Minutes, ONCE, 1 dose, On Sat01/15/22 at 1330, Approx Total Volume: mL EXP:_01/16/2022@1930 Hazardous Chemotherapy Drug: Use appropriate PPE. Antineoplastic Irritant. New Bag/Syringe/Bottle 01/15/2022 2:09 PM EDT 1,950 mg palonosetron 0.25 mg injection (ALOXI) 0.25 mg, INTRAVENOUS, ONCE, 1 dose, On Sat01/15/22 at 1330, Flush IV line with NS prior to and following administration. Given 01/15/2022 1:38 PM EDT 0.25 mg Inactive Administered Medications - up to 3 most recent administrations Medication Order MAR Action Action Date Dose Rate Site gemcitabine 1,950 mg in NaCl 0.9% 250 mL (GEMZAR) 1,950 mg (1,000 mg/m2 1.95 m2 Treatment Plan BSA from Recorded weight), INTRAVENOUS, Administer over 30 Minutes, ONCE, 1 dose, On Sat01/22/22 at 1300, Approx Total Volume EXP: 0500 01/24/22 Hazardous Chemotherapy Drug: Use appropriate PPE. Antineoplastic Irritant. New Bag/Syringe/Bottle 01/22/2022 1:33 PM EDT 1,950 mg ondansetron (PF) 8 mg injection (ZOFRAN) 8 mg, INTRAVENOUS, ONCE, 1 dose, On Sat01/22/22 at 1300, Administer 30 minutes prior to infusion. Given 01/22/2022 1:29 PM EDT 8 mg Inactive Administered Medications - up to 3 most recent administrations Medication Order MAR Action Action Date Dose Rate Site CARBOplatin 240 mg in NaCl 0.9% 250 mL (PARAPLATIN) 240 mg (Target AUC = 4), INTRAVENOUS, Administer over 30 Minutes, ONCE, 1 dose, On Sat02/12/22 at 1400, Approx Total Volume: mL EXP:__02/13/22 @ 1999___ Hazardous Chemotherapy Drug: Use appropriate PPE. Antineoplastic Irritant. New Bag/Syringe/Bottle 02/12/2022 2:58 PM EDT 240 mg dexAMETHasone 10 mg/NS 50 mL (PYXIS) 10 mg ivpb (DECADRON) 10 mg, INTRAVENOUS, ONCE, 1 dose, On Sat02/12/22 at 1400, Refrigerate. New Bag/Syringe/Bottle 02/12/2022 1:54 PM EDT 10 mg gemcitabine 1,568 mg in NaCl 0.9% 250 mL (GEMZAR) 1,568 mg (800 mg/m2 1.96 m2 Treatment Plan BSA from Recorded weight), INTRAVENOUS, Administer over 30 Minutes, ONCE, 1 dose, On Sat02/12/22 at 1400, Approx Total Volume: mL EXP:_ 02/13/22 @ 1999 Hazardous Chemotherapy Drug: Use appropriate PPE. Antineoplastic Irritant. New Bag/Syringe/Bottle 02/12/2022 2:24 PM EDT 1,568 mg palonosetron 0.25 mg injection (ALOXI) 0.25 mg, INTRAVENOUS, ONCE, 1 dose, On Sat02/12/22 at 1400, Flush IV line with NS prior to and following administration. Given 02/12/2022 1:52 PM EDT 0.25 mg Inactive Administered Medications - up to 3 most recent administrations Medication Order MAR Action Action Date Dose Rate Site pembrolizumab 200 mg in NaCl 0.9% 66 mL (KEYTRUDA) 200 mg, INTRAVENOUS, Administer over 30 Minutes, ONCE, 1 dose, On Sat01/02/23 at 1600, Approx Total Volume: 66 mL -- Exp: 01/02/23@2200 Administer with 0.2 micron filter. New Bag/Syringe/Bottle 01/02/2023 4:02 PM EDT 200 mg Inactive Administered Medications - up to 3 most recent administrations Medication Order MAR Action Action Date Dose Rate Site pembrolizumab 200 mg in NaCl 0.9% 66 mL (KEYTRUDA) 200 mg, INTRAVENOUS, Administer over 30 Minutes, ONCE, 1 dose, On Eusebia 01/31/23 at 0930, EXP:L 01/31/23 1515 RT Administer with 0.2 micron filter. New Bag/Syringe/Bottle 01/31/2023 9:33 AM EDT 200 mg Inactive Administered Medications - up to 3 most recent administrations Medication Order MAR Action Action Date Dose Rate Site pembrolizumab 200 mg in NaCl 0.9% 66 mL (KEYTRUDA) 200 mg, INTRAVENOUS, Administer over 30 Minutes, ONCE, 1 dose, On Eusebia 04/04/23 at 1130, Approx Total Volume: 66 mL EXP: 1900 Administer with 0.2 micron filter. New Bag/Syringe/Bottle 04/04/2023 11:30 AM EDT 200 mg Inactive Administered Medications - up to 3 most recent administrations Medication Order MAR Action Action Date Dose Rate Site pembrolizumab 200 mg in NaCl 0.9% 66 mL (KEYTRUDA) 200 mg, INTRAVENOUS, Administer over 30 Minutes, ONCE, 1 dose, On Eusebia 04/25/23 at 1400, Approx Total Volume: 66 mL EXP: 04/25/23 2000 Administer with 0.2 micron filter. New Bag/Syringe/Bottle 04/25/2023 2:11 PM EDT 200 mg Inactive Administered Medications - up to 3 most recent administrations Medication Order MAR Action Action Date Dose Rate Site pembrolizumab 200 mg in NaCl 0.9% 66 mL (KEYTRUDA) 200 mg, INTRAVENOUS, Administer over 30 Minutes, ONCE, 1 dose, On Eusebia 05/16/23 at 1430, EXP: 05/16/23 2030 RT Administer with 0.2 micron filter. New Bag/Syringe/Bottle 05/16/2023 2:40 PM EDT 200 mg Inactive Administered Medications - up to 3 most recent administrations Medication Order MAR Action Action Date Dose Rate Site pembrolizumab 200 mg in NaCl 0.9% 66 mL (KEYTRUDA) 200 mg, INTRAVENOUS, Administer over 30 Minutes, ONCE, 1 dose, On Eusebia 06/06/23 at 1430, EXP: 06/06/23 2030 RT Administer with 0.2 micron filter. New Bag/Syringe/Bottle 06/06/2023 2:51 PM EDT 200 mg Inactive Administered Medications - up to 3 most recent administrations Medication Order MAR Action Action Date Dose Rate Site pembrolizumab 200 mg in NaCl 0.9% 66 mL (KEYTRUDA) 200 mg, INTRAVENOUS, Administer over 30 Minutes, ONCE, 1 dose, On Eusebia 06/27/23 at 1400, EXP: 214406/27/23 Administer with 0.2 micron filter. New Bag/Syringe/Bottle 06/27/2023 2:26 PM EDT 200 mg Inactive Administered Medications - up to 3 most recent administrations Medication Order MAR Action Action Date Dose Rate Site pembrolizumab 200 mg in NaCl 0.9% 66 mL (KEYTRUDA) 200 mg, INTRAVENOUS, Administer over 30 Minutes, ONCE, 1 dose, On Eusebia 07/18/23 at 1400, EXP: 1400 07/19/23 RF Administer with 0.2 micron filter. New Bag/Syringe/Bottle 07/18/2023 2:18 PM EDT 200 mg Inactive Administered Medications - up to 3 most recent administrations Medication Order MAR Action Action Date Dose Rate Site pembrolizumab 200 mg in NaCl 0.9% 66 mL (KEYTRUDA) 200 mg, INTRAVENOUS, Administer over 30 Minutes, ONCE, 1 dose, On E[place]ebia 09/19/23 at 1500, EXP: 2115 RT Administer with 0.2 micron filter. New Bag/Syringe/Bottle 09/19/2023 3:19 PM EST 200 mg Reason for Referral Specialty Diagnoses / Procedures Referred By Contac t Referred To Contact CT IMAGING Diagnoses Malignant 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) Procedures CT CHEST W IVCON DIAGNOSTIC COMPUTED TOMOGRAPHY THORAX W/CONTRAST Caesar Prado MD [address] [place] [address] [place] [address] Ct Imaging Referral ID Status Reason Start Date Expiration Date Visits Requested Visits Authorized [id number] Authorized Auto-Generat ed Referral 05/16/2023 06/14/2024 1 1 Specialty Diagnoses / Procedures Referred By Contac t Referred To Contact CT IMAGING Diagnoses Malignant 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) Procedures CT ABD/PEL W IVCON CT ABD & PELVIS W/CONTRAST Caesar Prado MD [address] [place] [address] [place] [address] Ct Imaging Referral ID Status Reason Start Date Expiration Date Visits Requested Visits Authorized [id number] Authorized Auto-Generat ed Referral 05/16/2023 06/14/2024 1 1 Additional Source Comments (unrecognized sect ion and content) No Status Records FoundNo Status Records FoundNo Status Records FoundNo Status Records FoundNo Status Records FoundNo Status Records FoundNo Status Records Found INFORMATION SOURCE (unrecogn ized section and content) DATE CREATED AUTHOR 04/30/2018 [facility] DATE CREATED AUTHOR AUTHOR'S ORGANIZ ATION 03/06/2019 [facility] DATE CREATED AUTHOR AUTHOR'S ORGANIZ ATION 03/24/2023 [facility] DATE CREATED AUTHOR AUTHOR'S ORGANIZ ATION 04/27/2023 [facility] DATE CREATED AUTHOR AUTHOR'S ORGANIZ ATION 08/24/2023 [facility] DATE CREATED AUTHOR AUTHOR'S ORGANIZ ATION 11/02/2023 [facility] DATE CREATED AUTHOR AUTHOR'S ORGANIZ ATION 11/03/2023 [facility] Source Comments (unrecognize d section and content) In the event this informatio n is protected by the Federal Confidentiality of Alcohol and Drug Abuse Patient Records regulations: The Federal rules restrict any use of the information to criminally investigate or prosecute any alcohol or drug abuse patient.[facility] the event this information is protected by the Federal Confidentiality of Alcohol and Drug Abuse Patient Records regulations: The Federal rules restrict any use of the information to criminally investigate or prosecute any alcohol or drug abuse patient.[facility] the event this information is protected by the Federal Confidentiality of Alcohol and Drug Abuse Patient Records regulations: The Federal rules restrict any use of the information to criminally investigate or prosecute any alcohol or drug abuse patient.[facility] the event this information is protected by the Federal Confidentiality of Alcohol and Drug Abuse Patient Records regulations: The Federal rules restrict any use of the information to criminally investigate or prosecute any alcohol or drug abuse patient.[facility] the event this information is protected by the Federal Confidentiality of Alcohol and Drug Abuse Patient Records regulations: The Federal rules restrict any use of the information to criminally investigate or prosecute any alcohol or drug abuse patient.[facility] the event this information is protected by the Federal Confidentiality of Alcohol and Drug Abuse Patient Records regulations: The Federal rules restrict any use of the information to criminally investigate or prosecute any alcohol or drug abuse patient.[facility] the event this information is protected by the Federal Confidentiality of Alcohol and Drug Abuse Patient Records regulations: The Federal rules restrict any use of the information to criminally investigate or prosecute any alcohol or drug abuse patient.[facility] the event this information is protected by the Federal Confidentiality of Alcohol and Drug Abuse Patient Records regulations: The Federal rules restrict any use of the information to criminally investigate or prosecute any alcohol or drug abuse patient.[facility] the event this information is protected by the Federal Confidentiality of Alcohol and Drug Abuse Patient Records regulations: The Federal rules restrict any use of the information to criminally investigate or prosecute any alcohol or drug abuse patient.[facility] the event this information is protected by the Federal Confidentiality of Alcohol and Drug Abuse Patient Records regulations: The Federal rules restrict any use of the information to criminally investigate or prosecute any alcohol or drug abuse patient.[facility] the event this information is protected by the Federal Confidentiality of Alcohol and Drug Abuse Patient Records regulations: The Federal rules restrict any use of the information to criminally investigate or prosecute any alcohol or drug abuse patient.[facility] the event this information is protected by the Federal Confidentiality of Alcohol and Drug Abuse Patient Records regulations: The Federal rules restrict any use of the information to criminally investigate or prosecute any alcohol or drug abuse patient.[facility] the event this information is protected by the Federal Confidentiality of Alcohol and Drug Abuse Patient Records regulations: The Federal rules restrict any use of the information to criminally investigate or prosecute any alcohol or drug abuse patient.[facility] the event this information is protected by the Federal Confidentiality of Alcohol and Drug Abuse Patient Records regulations: The Federal rules restrict any use of the information to criminally investigate or prosecute any alcohol or drug abuse patient.[facility] the event this information is protected by the Federal Confidentiality of Alcohol and Drug Abuse Patient Records regulations: The Federal rules restrict any use of the information to criminally investigate or prosecute any alcohol or drug abuse patient.[facility] the event this information is protected by the Federal Confidentiality of Alcohol and Drug Abuse Patient Records regulations: The Federal rules restrict any use of the information to criminally investigate or prosecute any alcohol or drug abuse patient.[facility] the event this information is protected by the Federal Confidentiality of Alcohol and Drug Abuse Patient Records regulations: The Federal rules restrict any use of the information to criminally investigate or prosecute any alcohol or drug abuse patient.[facility] the event this information is protected by the Federal Confidentiality of Alcohol and Drug Abuse Patient Records regulations: The Federal rules restrict any use of the information to criminally investigate or prosecute any alcohol or drug abuse patient.[facility]In the event this information is protected by the Federal Confidentiality of Alcohol and Drug Abuse Patient Records regulations: The Federal rules restrict any use of the information to criminally investigate or prosecute any alcohol or drug abuse patient.[facility]In the event this information is protected by the Federal Confidentiality of Alcohol and Drug Abuse Patient Records regulations: The Federal rules restrict any use of the information to criminally investigate or prosecute any alcohol or drug abuse patient.[facility] the event this information is protected by the Federal Confidentiality of Alcohol and Drug Abuse Patient Records regulations: The Federal rules restrict any use of the information to criminally investigate or prosecute any alcohol or drug abuse patient.[facility] the event this information is protected by the Federal Confidentiality of Alcohol and Drug Abuse Patient Records regulations: The Federal rules restrict any use of the information to criminally investigate or prosecute any alcohol or drug abuse patient.[facility]In the event this information is protected by the Federal Confidentiality of Alcohol and Drug Abuse Patient Records regulations: The Federal rules restrict any use of the information to criminally investigate or prosecute any alcohol or drug abuse patient.[facility]In the event this information is protected by the Federal Confidentiality of Alcohol and Drug Abuse Patient Records regulations: The Federal rules restrict any use of the information to criminally investigate or prosecute any alcohol or drug abuse patient.[facility] the event this information is protected by the Federal Confidentiality of Alcohol and Drug Abuse Patient Records regulations: The Federal rules restrict any use of the information to criminally investigate or prosecute any alcohol or drug abuse patient.[facility]In the event this information is protected by the Federal Confidentiality of Alcohol and Drug Abuse Patient Records regulations: The Federal rules restrict any use of the information to criminally investigate or prosecute any alcohol or drug abuse patient.[facility]In the event this information is protected by the Federal Confidentiality of Alcohol and Drug Abuse Patient Records regulations: The Federal rules restrict any use of the information to criminally investigate or prosecute any alcohol or drug abuse patient.[facility] the event this information is protected by the Federal Confidentiality of Alcohol and Drug Abuse Patient Records regulations: The Federal rules restrict any use of the information to criminally investigate or prosecute any alcohol or drug abuse patient.[facility]In the event this information is protected by the Federal Confidentiality of Alcohol and Drug Abuse Patient Records regulations: The Federal rules restrict any use of the information to criminally investigate or prosecute any alcohol or drug abuse patient.[facility]In the event this information is protected by the Federal Confidentiality of Alcohol and Drug Abuse Patient Records regulations: The Federal rules restrict any use of the information to criminally investigate or prosecute any alcohol or drug abuse patient.[facility] the event this information is protected by the Federal Confidentiality of Alcohol and Drug Abuse Patient Records regulations: The Federal rules restrict any use of the information to criminally investigate or prosecute any alcohol or drug abuse patient.[facility] the event this information is protected by the Federal Confidentiality of Alcohol and Drug Abuse Patient Records regulations: The Federal rules restrict any use of the information to criminally investigate or prosecute any alcohol or drug abuse patient.[facility] the event this information is protected by the Federal Confidentiality of Alcohol and Drug Abuse Patient Records regulations: The Federal rules restrict any use of the information to criminally investigate or prosecute any alcohol or drug abuse patient.[facility]In the event this information is protected by the Federal Confidentiality of Alcohol and Drug Abuse Patient Records regulations: The Federal rules restrict any use of the information to criminally investigate or prosecute any alcohol or drug abuse patient.[facility]In the event this information is protected by the Federal Confidentiality of Alcohol and Drug Abuse Patient Records regulations: The Federal rules restrict any use of the information to criminally investigate or prosecute any alcohol or drug abuse patient.[facility]In the event this information is protected by the Federal Confidentiality of Alcohol and Drug Abuse Patient Records regulations: The Federal rules restrict any use of the information to criminally investigate or prosecute any alcohol or drug abuse patient.[facility]In the event this information is protected by the Federal Confidentiality of Alcohol and Drug Abuse Patient Records regulations: The Federal rules restrict any use of the information to criminally investigate or prosecute any alcohol or drug abuse patient.[facility]In the event this information is protected by the Federal Confidentiality of Alcohol and Drug Abuse Patient Records regulations: The Federal rules restrict any use of the information to criminally investigate or prosecute any alcohol or drug abuse patient.[facility]In the event this information is protected by the Federal Confidentiality of Alcohol and Drug Abuse Patient Records regulations: The Federal rules restrict any use of the information to criminally investigate or prosecute any alcohol or drug abuse patient.[facility]In the event this information is protected by the Federal Confidentiality of Alcohol and Drug Abuse Patient Records regulations: The Federal rules restrict any use of the information to criminally investigate or prosecute any alcohol or drug abuse patient.[facility]In the event this information is protected by the Federal Confidentiality of Alcohol and Drug Abuse Patient Records regulations: The Federal rules restrict any use of the information to criminally investigate or prosecute any alcohol or drug abuse patient.[facility]In the event this information is protected by the Federal Confidentiality of Alcohol and Drug Abuse Patient Records regulations: The Federal rules restrict any use of the information to criminally investigate or prosecute any alcohol or drug abuse patient.[facility] Anderson[facility] the event this information is protected by the Federal Confidentiality of Alcohol and Drug Abuse Patient Records regulations: The Federal rules restrict any use of the information to criminally investigate or prosecute any alcohol or drug abuse patient.[facility] AndersonIn the event this information is protected by the Federal Confidentiality of Alcohol and Drug Abuse Patient Records regulations: The Federal rules restrict any use of the information to criminally investigate or prosecute any alcohol or drug abuse patient.[facility] AndersonIn the event this information is protected by the Federal Confidentiality of Alcohol and Drug Abuse Patient Records regulations: The Federal rules restrict any use of the information to criminally investigate or prosecute any alcohol or drug abuse patient.[facility] AndersonIn the event this information is protected by the Federal Confidentiality of Alcohol and Drug Abuse Patient Records regulations: The Federal rules restrict any use of the information to criminally investigate or prosecute any alcohol or drug abuse patient.[facility] AndersonIn the event this information is protected by the Federal Confidentiality of Alcohol and Drug Abuse Patient Records regulations: The Federal rules restrict any use of the information to criminally investigate or prosecute any alcohol or drug abuse patient.[facility] Reason for Visit (unrecogniz ed section and content) Reason Comments malignant neoplasm of ureter follow up t reatment Reason Comments ureter cancer Specialty Diagnoses / Procedures Referred By Contac t Referred To Contact Diagnoses Malignant neoplasm of ureter (HCC) Soren Perea MD [address] [place] [address] [place] [address] [facility] [address] [place] [address] Referral ID Status Reason Start Date Expiration Date V isits Requested Visits Authorized [id number] Authorized 11/14/2021 02/12/2022 99 99 Reason Comments ureter cancer follow up treatment Reason Comments malignant neoplasm of ureter Reason Comments Pre-Op Teaching Reason Comments Follow Up Reason Comments Pre-Op Visit Reason Comments Pre-Op Exam Reason Comments Follow Up Reason Comments Ureteral cancer Transition of care Reason Comments Care Coordination Reschedule appointme nt Reason Comments Patient Update Reason Comments Non-Chemotherapy Treatment Pembrolizumab Specialty Diagnoses / Procedures Referred By Contac t Referred To Contact Diagnoses Malignant neoplasm of ureter, 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, 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) Caesar Prado MD [address] [place] [address] [place] [address] [facility] [address] [place] [address] Referral ID Status Reason Start Date Expiration Date V isits Requested Visits Authorized [id number] Authorized 12/24/2022 03/24/2023 99 99 Reason Comments Care Coordination C1D1 Post Treatment Call Reason Comments Malignant neoplasm of ureter New start t reatment Reason Comments Bladder Cancer Reason Comments Return Call Request Call pt Reason Comments Bladder Cancer Reason Comments Radiology CT Reason Onset Date Comments Refill Request 05/31/2023 Reason Comments Bladder Cancer Treatment visit Reason Comments Post-Op Visit Reason Comments Care Coordination Sore Throat Care Teams (unrecognized sec tion and content) [employer] Associate Relationship Specialty Start Date End Date Yoan Sneed MD [address] [place] [address] PCP - General Family Practice 07/30/19 Jian Rodriguez MD [address] [place] [address] Physician Urology 10/28/19 Lauren Mckeon, RN [address] [facility] [address] Specialty Inhalation Therapy Aide Hematology/Oncology 11/21/21 Soren Perea MD [address] [facility] [place] [address] Physician Hematology/Oncology 11/21/21 Corazon Maxwell PA-C [address] [facility] [address] Physician Guillotine Operator Hematology/Oncology 11/21/21 [employer] Associate Relationship Specialty Start Date End Date Yoan Sneed MD [address] [place] [address] PCP - General Family Practice 07/30/19 Jian Rodriguez MD [address] [place] [address] Physician Urology 10/28/19 Lauren Mckeon RN [address] [facility] [address] Specialty Inhalation Therapy Aide Hematology/Oncology 11/21/21 Soren Perea MD [address] [facility] [place] [address] Physician Hematology/Oncology 11/21/21 Corazon Maxwell PA-C [address] [facility] [place] [address] Physician Guillotine Operator Hematology/Oncology 11/21/21 [employer] Services Program Associate Relationship Specialty Start Date End Date Yoan Sneed MD [address] [place] [address] PCP - General Family Practice 07/30/19 Jian Rodriguez MD [address] [place] [address] Physician Urology 10/28/19 Lauren Mckeon RN [address] [facility] [address] Specialty Inhalation Therapy Aide Hematology/Oncology 11/21/21 Soren Perea MD [address] [facility] [place] [address] Physician Hematology/Oncology 11/21/21 Corazon Maxwell, PAEnocC [address] [place] [address] Physician Guillotine Operator Hematology/Oncology 11/21/21 [employer] Program Associate Relationship Specialty Start Date End Date Yoan Sneed MD [address] [place] [address] PCP - General Family Practice 07/30/19 Jian Rodriguez MD [address] [place] [address] Physician Urology 10/28/19 Lauren Mckeon, RN [address] [facility] [place] [address] Specialty Inhalation Therapy Aide Hematology/Oncology 11/21/21 Soren Perea MD [address] [facility] [place] [address] Physician Hematology/Oncology 11/21/21 Corazon Maxwell, PAnEocC [address] [facility] [place] [address] Physician Guillotine Operator Hematology/Oncology 11/21/21 [employer] Services Program Associate Relationship Specialty Start Date End Date Yoan Sneed MD [address] [place] [address] PCP - General Family Practice 07/30/19 Jian Rodriguez MD [address] [place] [address] Physician Urology 10/28/19 Lauren Mckeon, RN [address] [facility] [address] Specialty Inhalation Therapy Aide Hematology/Oncology 11/21/21 Soren Perea MD [address] [facility] [place] [address] Physician Hematology/Oncology 11/21/21 Corazon Maxwell PA-C [address] [place] [address] Physician Guillotine Operator Hematology/Oncology 11/21/21 [employer] Services Program Associate Relationship Specialty Start Date End Date Yoan Sneed MD [address] [place] [address] PCP - General Family Practice 07/30/19 Jian Rodriguez MD [address] [place] [address] Physician Urology 10/28/19 Lauren Mckeon RN [address] [facility] [address] Specialty Inhalation Therapy Aide Hematology/Oncology 11/21/21 Soren Perea MD [address] [facility] [place] [address] Physician Hematology/Oncology 11/21/21 Corazon Maxwell PA-C [address] [facility] [place] [address] Physician Guillotine Operator Hematology/Oncology 11/21/21 [employer] Services Program Associate Relationship Specialty Start Date End Date Yoan Sneed MD [address] [place] [address] PCP - General Family Practice 07/30/19 Jian Rodriguez MD [address] [place] [address] Physician Urology 10/28/19 Lauren Mckeon, RN [address] [facility] [address] Specialty Inhalation Therapy Aide Hematology/Oncology 11/21/21 Soren Perea MD [address] [facility] [place] [address] Physician Hematology/Oncology 11/21/21 Corazon Maxwell PA-C [address] [place] [address] Physician Guillotine Operator Hematology/Oncology 11/21/21 [employer] Services Program Associate Relationship Specialty Start Date End Date Yoan Sneed MD [address] [place] [address] PCP - General Family Practice 07/30/19 Jian Rodriguez MD [address] [place] [address] Physician Urology 10/28/19 Lauren Mckeon, RN [address] [place] [address] Specialty Inhalation Therapy Aide Hematology/Oncology 11/21/21 Soren Perea MD [address] [place] [address] Physician Hematology/Oncology 11/21/21 Corazon Maxwell PA-C [address] [place] [address] Physician Guillotine Operator Hematology/Oncology 11/21/21 [employer] Services Program Associate Relationship Specialty Start Date End Date Yoan Sneed MD [address] [place] [address] PCP - General Family Practice 07/30/19 Jian Rodriguez MD [address] [place] [address] Physician Urology 10/28/19 Lauren Mckeon, RN [address] [place] [address] Specialty Inhalation Therapy Aide Hematology/Oncology 11/21/21 Soren Perea MD [address] [place] [address] Physician Hematology/Oncology 11/21/21 Corazon Maxwell PA-C [address] [place] [address] Physician Guillotine Operator Hematology/Oncology 11/21/21 [employer] Services Program Associate Relationship Specialty Start Date End Date Yoan Sneed MD [address] [place] [address] PCP - General Family Practice 07/30/19 Jian Rodriguez MD [address] [place] [address] Physician Urology 10/28/19 Lauren Mckeon, RN [address] [facility] [place] [address] Specialty Inhalation Therapy Aide Hematology/Oncology 11/21/21 Soren Perea MD [address] [facility] [place] [address] Physician Hematology/Oncology 11/21/21 Corazon Maxwell PA-C [address] [facility] [place] [address] Physician Guillotine Operator Hematology/Oncology 11/21/21 [employer] Services Program Associate Relationship Specialty Start Date End Date Yoan Sneed MD [address] [place] [address] PCP - General Family Practice 07/30/19 Jian Rodriguez MD [address] [place] [address] Physician Urology 10/28/19 Lauren Mckeon, RN [address] [facility] [place] [address] Specialty Inhalation Therapy Aide Hematology/Oncology 11/21/21 Soren Perea MD [address] [facility] [place] [address] Physician Hematology/Oncology 11/21/21 Corazon Maxwell PA-C [address] [facility] [place] [address] Physician Guillotine Operator Hematology/Oncology 11/21/21 [employer] Services Program Associate Relationship Specialty Start Date End Date Yoan Sneed MD [address] [place] [address] PCP - General Family Medicine 07/30/19 Jian Rodriguez MD [address] [place] [address] Physician Urology 10/28/19 Soren Perea MD [address] [place] [address] Physician Hematology/Oncology 11/21/21 Casey Castaneda MD [address] [facility] 1 [place] [address] Cardiology 09/12/22 University Services Program Associate Relationship Specialty Start Date End Date Yoan Sneed MD [address] [place] [address] PCP - General Family Medicine 07/30/19 Jian Rodriguez MD [address] [place] [address] Physician Urology 10/28/19 Soren Perea MD [address] [facility] [address] [place], [facility] Physician Hematology/Oncology 11/21/21 Casey Castaneda MD [address] [facility] 1 [place] [address] Cardiology 09/12/22 University Services Program Associate Relationship Specialty Start Date End Date Yoan Sneed MD [address] [place] [address] PCP - General Family Medicine 07/30/19 Jian Rodriguez MD [address] [place] [address] Physician Urology 10/28/19 Soren Perea MD [address] [facility] [place] [address] Physician Hematology/Oncology 11/21/21 Casey Castaneda MD [address] [facility] 1 [place] [address] Cardiology 09/12/22 University Services Program Associate Relationship Specialty Start Date End Date Yoan Sneed MD [address] [place] [address] PCP - General Family Medicine 07/30/19 Jian Rodriguez MD [address] [place] [address] Physician Urology 10/28/19 Soren Perea MD [address] [facility] [place] [address] Physician Hematology/Oncology 11/21/21 Casey Castaneda MD [address] [facility] 1 [place] [address] Cardiology 09/12/22 University Services Program Associate Relationship Specialty Start Date End Date Yoan Sneed MD [address] [place] [address] PCP - General Family Medicine 07/30/19 Jian Rodriguez MD [address] [place] [address] Physician Urology 10/28/19 Soren Perea MD [address] [facility] [place] [address] Physician Hematology/Oncology 11/21/21 Casey Castaneda MD [address] [facility] 1 [place] [address] Cardiology 09/12/22 University Services Program Associate Relationship Specialty Start Date End Date Yoan Sneed MD [address] [place] [address] PCP - General Family Medicine 07/30/19 Jian Rodriguez MD [address] [place] [address] Physician Urology 10/28/19 Soren Perea MD [address] [facility] [place] [address] Physician Hematology/Oncology 11/21/21 Casey Castaneda MD [address] [place] [address] Cardiology 09/12/22 University Services Program Associate Relationship Specialty Start Date End Date Yoan Sneed MD PCP - General Family Medicine 07/30/19 Jian Rodriguez MD [address] [place] [address] Physician Urology 10/28/19 Casey Castaneda MD [address] [facility] 1 [place] [address] Cardiology 09/12/22 Caesar Prado MD [address] [facility] [address] Physician Hematology/Oncology 12/26/22 Margot So, SUNIL [address] [place] [address] Specialty Inhalation Therapy Aide Hematology/Oncology 12/26/22 Wayne Chavez APRN.DIMENSION QUARRY SUPERVISOR [address] [place] [address] Nurse Practitioner Hematology/Oncology 12/26/22 University Services Program Associate Relationship Specialty Start Date End Date Yoan Sneed MD PCP - General Family Medicine 07/30/19 Jian Rodriguez MD [address] [place] [address] Physician Urology 10/28/19 Casey Castaneda MD [address] [facility] 1 [place] [address] Cardiology 09/12/22 Caesar Prado MD [address] [facility] [address] Physician Hematology/Oncology 12/26/22 Margot So, RN [address] [facility] [address] Specialty Inhalation Therapy Aide Hematology/Oncology 12/26/22 Wayne Chavez, ROLLING MILL OPERATOR HELPER.DIMENSION QUARRY SUPERVISOR [address] [facility] [address] Nurse Practitioner Hematology/Oncology 12/26/22 [employer] Services Program Associate Relationship Specialty Start Date End Date Yoan Sneed MD PCP - General Family Medicine 07/30/19 Jian Rodriguez MD [address] [place] [address] Physician Urology 10/28/19 Casey Castaneda MD [address] [facility] 1 [place] [address] Cardiology 09/12/22 Caesar Prado MD [address] [facility] [address] Physician Hematology/Oncology 12/26/22 Margot So, RN [address] [facility] [address] Specialty Inhalation Therapy Aide Hematology/Oncology 12/26/22 Wayne Chavez, ROLLING MILL OPERATOR HELPER.DIMENSION QUARRY SUPERVISOR [address] [facility] [place] [address] Nurse Practitioner Hematology/Oncology 12/26/22 University Services Program Associate Relationship Specialty Start Date End Date Yoan Sneed MD PCP - General Family Medicine 07/30/19 Jian Rodriguez MD [address] [place] [address] Physician Urology 10/28/19 Casey Castaneda MD [address] [place] [address] Cardiology 09/12/22 Caesar Prado MD [address] [facility] [place] [address] Physician Hematology/Oncology 12/26/22 Margot So, SUNIL [address] [facility] [place] [address] Specialty Inhalation Therapy Aide Hematology/Oncology 12/26/22 Wayne Chavez, ROLLING MILL OPERATOR HELPER.DIMENSION QUARRY SUPERVISOR [address] [facility] [place] [address] Nurse Practitioner Hematology/Oncology 12/26/22 University Services Program Associate Relationship Specialty Start Date End Date Yoan Sneed MD PCP - General Family Medicine 07/30/19 Jian Rodriguez MD [address] [place] [address] Physician Urology 10/28/19 Casey Castaneda MD [address] [place] [address] Cardiology 09/12/22 Caesar Prado MD [address] [place] [address] Physician Hematology/Oncology 12/26/22 Margot So, RN [address] [place] [address] Specialty Inhalation Therapy Aide Hematology/Oncology 12/26/22 Wayne Chavez, ROLLING MILL OPERATOR HELPER.DIMENSION QUARRY SUPERVISOR [address] [place] [address] Nurse Practitioner Hematology/Oncology 12/26/22 University Services Program Associate Relationship Specialty Start Date End Date Yoan Sneed MD PCP - General Family Medicine 07/30/19 Jian Rodriguez MD [address] [place] [address] Physician Urology 10/28/19 Casey Castaneda MD [address] [facility] [address] [place] [address] Cardiology 09/12/22 Caesar Prado MD [address] [place] [address] Physician Hematology/Oncology 12/26/22 Margot So, RN [address] [place] [address] Specialty Inhalation Therapy Aide Hematology/Oncology 12/26/22 Wayne Chavez, ROLLING MILL OPERATOR HELPER.DIMENSION QUARRY SUPERVISOR [address] [place] [address] Nurse Practitioner Hematology/Oncology 12/26/22 University Services Program Associate Relationship Specialty Start Date End Date Yoan Sneed MD PCP - General Family Medicine 07/30/19 Jian Rodriguez MD Physician Urology 10/28/19 Casey Castaneda MD [address] [facility] 1 [place] [address] Cardiology 09/12/22 Caesar Prado MD [address] [facility] [address] Physician Hematology/Oncology 12/26/22 Margot So, RN [address] [facility] [place] [address] Specialty Inhalation Therapy Aide Hematology/Oncology 12/26/22 Wayne Chavez, ROLLING MILL OPERATOR HELPER.DIMENSION QUARRY SUPERVISOR [address] [facility] [address] Nurse Practitioner Hematology/Oncology 12/26/22 University Services Program Associate Relationship Specialty Start Date End Date Yoan Sneed MD PCP - General Family Medicine 07/30/19 Jian Rodriguez MD Physician Urology 10/28/19 Casey Castaneda MD [address] [facility] 1 [place] [address] Cardiology 09/12/22 Caesar Prado MD [address] [facility] [address] Physician Hematology/Oncology 12/26/22 Margot So, RN [address] [facility] [place] [address] Specialty Inhalation Therapy Aide Hematology/Oncology 12/26/22 Wayne Chavez, ROLLING MILL OPERATOR HELPER.DIMENSION QUARRY SUPERVISOR [address] [facility] [address] Nurse Practitioner Hematology/Oncology 12/26/22 University Services Program Associate Relationship Specialty Start Date End Date Yoan Sneed MD PCP - General Family Medicine 07/30/19 Jian Rodriguez MD Physician Urology 10/28/19 Casey Castaneda MD [address] [place] [address] Cardiology 09/12/22 Caesar Prado MD [address] [facility] [place] [address] Physician Hematology/Oncology 12/26/22 Margot So, SUNIL [address] [facility] [place] [address] Specialty Inhalation Therapy Aide Hematology/Oncology 12/26/22 Wayne Chavez APRN.DIMENSION QUARRY SUPERVISOR [address] [facility] [place] [address] Nurse Practitioner Hematology/Oncology 12/26/22 University Services Program Associate Relationship Specialty Start Date End Date Yoan Sneed MD PCP - General Family Medicine 07/30/19 Jian Rodriguez MD Physician Urology 10/28/19 Casey Castaneda MD [address] [place] [address] Cardiology 09/12/22 Caesar Prado MD [address] [place] [address] Physician Hematology/Oncology 12/26/22 Margot So, SUNIL [address] [place] [address] Specialty Inhalation Therapy Aide Hematology/Oncology 12/26/22 Wayne Chavez, ROLLING MILL OPERATOR HELPER.DIMENSION QUARRY SUPERVISOR [address] [place] [address] Nurse Practitioner Hematology/Oncology 12/26/22 University Services Program Associate Relationship Specialty Start Date End Date Yoan Sneed MD PCP - General Family Medicine 07/30/19 Jian Rodriguez MD Physician Urology 10/28/19 Casey Castaneda MD [address] [facility] [address] [place] [address] Cardiology 09/12/22 Caesar Prado MD [address] [place] [address] Physician Hematology/Oncology 12/26/22 Margot So, SUNIL [address] [place] [address] Specialty Inhalation Therapy Aide Hematology/Oncology 12/26/22 Wayne Chavez, ROLLING MILL OPERATOR HELPER.DIMENSION QUARRY SUPERVISOR [address] [place] [address] Nurse Practitioner Hematology/Oncology 12/26/22 University Services Program Associate Relationship Specialty Start Date End Date Yoan Sneed MD PCP - General Family Medicine 07/30/19 Jian Rodriguez MD Physician Urology 10/28/19 Casey Castaneda MD [address] [facility] [address] [place] [address] Cardiology 09/12/22 Caesar Prado MD [address] [place] [address] Physician Hematology/Oncology 12/26/22 Margot So, SUNIL [address] [facility] [place] [address] Specialty Inhalation Therapy Aide Hematology/Oncology 12/26/22 Wayne Chavez APRN.DIMENSION QUARRY SUPERVISOR [address] [facility] [place] [address] Nurse Practitioner Hematology/Oncology 12/26/22 University Services Program Associate Relationship Specialty Start Date End Date Yoan Sneed MD PCP - General Family Medicine 07/30/19 Jian Rodriguez MD Physician Urology 10/28/19 University Services Program Associate Relationship Specialty Start Date End Date Yoan Sneed MD PCP - General Family Medicine 07/30/19 Jian Rodriguez MD Physician Urology 10/28/19 Casey Castaneda MD [address] [facility] 1 [place] [address] Cardiology 09/12/22 Caesar Praod MD [address] [place] [address] [place] [address] Physician Hematology/Oncology 12/26/22 Margot So, RN [address] [place] [address] [place] [address] Specialty Inhalation Therapy Aide Hematology/Oncology 12/26/22 Wayne Chavez APRN.DIMENSION QUARRY SUPERVISOR [address] [place] [address] [place] [address] Nurse Practitioner Hematology/Oncology 12/26/22 University Services Program Associate Relationship Specialty Start Date End Date Yoan Sneed MD PCP - General Family Medicine 07/30/19 Jian Rodriguez MD Physician Urology 10/28/19 Casey Castaneda MD [address] [facility] 1 [place] [address] Cardiology 09/12/22 Caesar Prado MD [address] [place] [address] [place] [address] Physician Hematology/Oncology 12/26/22 Margot So, SUNIL [address] [place] [address] Specialty Inhalation Therapy Aide Hematology/Oncology 12/26/22 Wayne Chavez, MARSHA.DIMENSION QUARRY SUPERVISOR [address] [place] [address] Nurse Practitioner Hematology/Oncology 12/26/22 University Services Program Associate Relationship Specialty Start Date End Date Yoan Sneed MD PCP - General Family Medicine 07/30/19 Jian Rodriguez MD Physician Urology 10/28/19 Casey Castaneda MD [address] [facility] [address] [place] [address] Cardiology 09/12/22 Caesar Prado MD [address] [place] [address] Physician Hematology/Oncology 12/26/22 Margot So RN [address] [place] [address] Specialty Inhalation Therapy Aide Hematology/Oncology 12/26/22 Wayne Chavez, ROLLING MILL OPERATOR HELPER.DIMENSION QUARRY SUPERVISOR [address] [place] [address] Nurse Practitioner Hematology/Oncology 12/26/22 University Services Program Associate Relationship Specialty Start Date End Date Yoan Sneed MD PCP - General Family Medicine 07/30/19 Jian Rodriguez MD Physician Urology 10/28/19 Casey Castaneda MD [address] [facility] [address] [place] [address] Cardiology 09/12/22 Caesar Prado MD [address] [facility] [place] [address] Physician Hematology/Oncology 12/26/22 Margot So, RN [address] [place] [address] Specialty Inhalation Therapy Aide Hematology/Oncology 12/26/22 Wayne Chavez APRN.[facility] [address] [place] [address] Nurse Practitioner Hematology/Oncology 12/26/22 [employer] Associate Relationship Specialty Start Date End Date Yoan Sneed MD PCP - General Family Medicine 07/30/19 Jian Rodriguez MD Physician Urology 10/28/19 Casey Castaneda MD [address] [facility] [address] [place] [address] Cardiology 09/12/22 Caesar Prado MD [address] [facility] [address] Physician Hematology/Oncology 12/26/22 Margot So, RN [address] [place] [address] Specialty Inhalation Therapy Aide Hematology/Oncology 12/26/22 Wayne Chavez, ROLLING MILL OPERATOR HELPER.[employer] [address] [place] [address] Nurse Practitioner Hematology/Oncology 12/26/22 [employer] Associate Relationship Specialty Start Date End Date Yoan Sneed MD PCP - General Family Medicine 07/30/19 Jian Rodriguez MD Physician Urology 10/28/19 Casey Castaneda MD [address] [facility] [address] [place] [address] Cardiology 09/12/22 Caesar Prado MD [address] [place] [address] Physician Hematology/Oncology 12/26/22 Margot So RN [address] [place] [address] Specialty Inhalation Therapy Aide Hematology/Oncology 12/26/22 Wayne Chavez, ROLLING MILL OPERATOR HELPER.[employer] SUPERVISOR [address] [place] [address] Nurse Practitioner Hematology/Oncology 12/26/22 [employer] Services Program Associate Relationship Specialty Start Date End Date Yoan Sneed MD PCP - General Family Medicine 07/30/19 Jian Rodriguez MD Physician Urology 10/28/19 Casey Castaneda MD [address] [facility] [address] [place] [address] Cardiology 09/12/22 Caesar Prado MD [address] [place] [address] Physician Hematology/Oncology 12/26/22 Margot So, RN [address] [place] [address] Specialty Inhalation Therapy Aide Hematology/Oncology 12/26/22 Wayne Chavez APRN.[employer] [address] [facility] [address] Nurse Practitioner Hematology/Oncology 12/26/22 [employer] Program Associate Relationship Specialty Start Date End Date Yoan Sneed MD PCP - General Family Medicine 07/30/19 Jian Rodriguez MD Physician Urology 10/28/19 Casey Castaneda MD [address] [facility] [address] [place] [address] Cardiology 09/12/22 Caesar Prado MD [address] [place] [address] Physician Hematology/Oncology 12/26/22 Margot So, SUNIL [address] [place] [address] Specialty Inhalation Therapy Aide Hematology/Oncology 12/26/22 Wayne Chavez, MARSHA.[employer] SU[employer] [address] [place] [address] [place] [address] Nurse Practitioner Hematology/Oncology 12/26/22 [employer] Program Associate Relationship Specialty Start Date End Date Yoan Sneed MD PCP - General Family Medicine 07/30/19 Jian Rodriguez MD Physician Urology 10/28/19 Casey Castaneda MD [address] [facility] [address] [place] [address] Cardiology 09/12/22 Caesar Prado MD [address] [place] [address] [place] [address] Physician Hematology/Oncology 12/26/22 Margot So RN [address] [facility] [place] [address] Specialty Inhalation Therapy Aide Hematology/Oncology 12/26/22 Wayne Chavez, ROLLING MILL OPERATOR HELPER.[employer]ARR[employer] SUPERVISOR [address] [place] [address] [place] [address] Nurse Practitioner Hematology/Oncology 12/26/22 FOR RECORDS PERTAINING TO PATIENTS WHO ARE OR HAVE BEEN ENROLLED IN A CHEMICAL DEPENDENCY/SUBSTANCEABUSE PROGRAM, SOME INFORMATION MAY BE OMITTED. This clinical summary was aggregated from multiple sources. Caution should be exercised in using it in the provision of clinical care. This summary normalizes information from multiple sources, and as a consequence, information in this document may materially change the coding, format and clinical context of patient data. In addition, data may be omitted in some cases. CLINICAL DECISIONS SHOULD BE BASED ON THE PRIMARY CLINICAL RECORDS. [employer] [facility]. provides no warranty or guarantee of the accuracy or completeness of information in this document.
--- NOTE | 2023-11-05 10:48 | US_ITS ---
[facility] [place] [id number] Patient Name: YONG AUSTIN MRN: [id number] date: 1940 Sex: M Assigned Patient Location: ER Current Patient Location: ER Accession/Order Number: [id number] Exam Date: 11/05/2023 11:35 Report Date: 11/05/2023 12:22 At the request of: SHARMILA BAER Procedure: US right upper quadrant EXAM: US right upper quadrant HISTORY: RUQ pain, vomiting COMPARISON: None. TECHNIQUE: Grayscale, color and Doppler FINDINGS: The liver is normal in size, contour and echotexture. 2.4 x 1.0 x 1.9 cm area of hyperechogenicity is identified in the medial right hepatic lobe, nonspecific. Hepatopedal flow in the main portal vein. The gallbladder is prominent in size containing a large amount of echogenic material likely representing sludge. The wall measures 2.9 mm, normal. The common bile duct measures 1.7 mm, normal. Negative sonographic Severino sign. The right kidney is normal measuring 10.1 x 5.3 x 6.6 cm. 1.2 cm area of anechoic echogenicity mid lateral pole likely a cyst. No hydronephrosis. US/US right upper quadrant IMPRESSION: 2.4 cm echogenic focus in the right hepatic lobe, nonspecific possibly a hemangioma Extensive gallbladder sludge without evidence of cholecystitis Electronically authenticated by: HAZEL RAMIREZ Date: 11/05/2023 12:22
--- NOTE | 2023-11-05 10:48 | ECG_ITS ---
The [facility] Test Date: 2023-11-05 Pat Name: YONG AUSTIN Department: Room: - Gender: Male Sound Cutter: : 1940 Requested By: YOAN SNEED Order Number: [id number] Reading MD: YOAN SNEED Measurements Intervals [place] Rate: 67 P: 53 ND: 178 QRS: -19 QRSD: 158 T: 54 QT: 460 QTc: 475 Interpretive Statements 1100 Sinus rhythm 2550 Left bundle branch block 9150 abnormal ECG Compared to ECG 03/10/2023 11:23:34 Left bundle-branch block now present Right bundle-branch block no longer present Myocardial infarct finding no longer present Right-axis deviation no longer present Electronically Signed On 11-08-2023 6:21:32 EST by YOAN SNEED
[2023-11-05] MEDS: 0.9 % SODIUM CHLORIDE 1,000 ML 999 ML IV (11:02)
[2023-11-05] MEDS: ONDANSETRON PF 4 MG/2 ML VIAL IV (11:02)
[2023-11-05] MEDS: HYOSCYAMINE SULFATE 0.125 MG TAB.SUBL SL ×3 (11:02→20:48)
--- NOTE | 2023-11-05 11:06 | ED_ITS ---
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 He was evaluated at [facility] ED and had blood tests, CT scan abd/pelvis and was discharged home. Today he admits to continued nausea and vomiting, occasionally tolerating water but not tolerating any foods. He tried cereal yesterday and vomited. He denied any abdominal to me but admitted to some flank pain. No fever or chills. He said that nothing tastes good and everything tastes off . No chest pain or sh ortness of breath. No cough, fever, problems urinating or having a BM - although with nothing able to be eaten he has very small amount of stool pass. The daughter is concerned about the elevated troponin. Related Data Home Medications Medication Instructions Recorded Confirmed amlodipine 10 mg tablet 10 mg PO DAILY 11/05/23 11/05/23 aspirin 81 mg tablet,delayed 81 mg PO DAILY 11/05/23 11/05/23 release (Adult Aspirin Regimen) atorvastatin 10 mg tablet 10 mg PO DAILY 11/05/23 11/05/23 balsalazide 750 mg capsule 750 mg PO DAILY 11/05/23 ferrous sulfate 325 mg (65 mg 325 mg PO DAILY 11/05/23 11/05/23 iron) tablet furosemide 20 mg tablet (Lasix) 20 mg PO DAILY 11/05/23 hydralazine 50 mg tablet 50 mg PO TID 11/05/23 11/05/23 isosorbide dinitrate 20 mg tablet 20 mg PO TID 11/05/23 11/05/23 levothyroxine 25 mcg tablet 25 mcg PO QDAY 11/05/23 11/05/23 losartan 50 mg tablet 50 mg PO BID 11/05/23 11/05/23 metoprolol succinate 25 mg 25 mg PO DAILY 11/05/23 11/05/23 tablet,extended release 24 hr pantoprazole 40 mg tablet,delayed 40 mg PO DAILY 11/05/23 11/05/23 release pembrolizumab 25 mg/mL intravenous IV 11/05/23 solution (KeyRedHelper) potassium chloride 10 mEq 10 meq PO BID 11/05/23 11/05/23 tablet,extended release tamsulosin 0.4 mg capsule 0.4 mg PO Q24H 11/05/23 11/05/23 Allergies Allergy/AdvReac Type Severity Reaction Status Date / Time adhesive tape AdvReac Intermediate Verified 11/05/23 10:36 [facility] Social History Smoking status: Former smoker Exam Narrative Exam Narrative: Nurses notes and vital signs reviewed and patient is not hypoxic. afebrile General: Well-appearing and in no apparent distress. Skin: Warm, dry, no pallor noted. Head: Normocephalic, atraumatic. Eye: Pupils are equal, round and EOMI. No scleral icterus. Ears, Nose, Mouth, and Throat: Oral mucosa is moist Cardiovascular: Regular Rate and Rhythm without murmur, gallop or rub. Respiratory: No accessory muscle use or respiratory distress. Lungs are clear to auscultation, no wheezing, rales or rhonchi Back: No midline thoracic or lumbar vertebral tenderness. No CVA tenderness Musculoskeletal: normal ROM, no calf or popliteal tenderness, no lower extremity edema/swelling GI: Abdomen is soft, non-distended. Normal bowel sounds. No masses appreciated. No tenderness to palpation. No rebound, guarding, or rigidity noted. Neurological: A&O x4. No cranial nerve dysfunction observed. No truncal ataxia. Moves all extremities. Sensation intact. Psychiatric: Cooperative and interactive. Normal mood and affect. Constitutional Vital Signs, click to edit/add: Last Vital Signs Temp 98.0 F 11/05/23 10:36 Pulse 69 11/05/23 12:37 Resp 16 11/05/23 12:37 BP 105/49 11/05/23 12:37 Pulse Ox 96 11/05/23 10:38 Course Vital Signs Vital signs: Vital Signs Temperature 98.0 F 11/05/23 10:36 Pulse Rate 71 11/05/23 10:36 Respiratory Rate 18 11/05/23 10:36 Blood Pressure 129/51 11/05/23 10:36 Pulse Oximetry 96 11/05/23 10:36 Temperature 98.0 F 11/05/23 10:36 Pulse Rate 69 11/05/23 12:37 Respiratory Rate 16 11/05/23 12:37 Blood Pressure 105/49 11/05/23 12:37 Pulse Oximetry 96 11/05/23 10:38 MDM - Abdominal Pain MDM Narrative Medical decision making narrative: Patient was placed on environmental monitoring specialist and EKG obtained. Blood drawn and sent for evaluation. He was ordered to undergo right upper quadrant ultrasound for evaluation of his gallbladder, which was dilated on CT obtained 3 days ago at [facility] emergency department. He was given normal saline IV fluid, IV Zofran and oral dissolvable Levsin. CBC with normal WBC, left shift. CMP notable only for elevated BUN and Cr consistent with patient's CKD. Lipase normal. Troponin normal. US revealed gallbladder sludge without cholelithiasis or cholecystitis. Patient continues to have nausea and vomiting despite taking ODT Zofran and maintaining clear liquid diet. Call placed to Dr Anderson to discuss the patient's case. he will admit the patient for further testing and treatment. Patient informed of plan and is agreeable. Abd xrays obtained at Dr Anderson's request. Medical Records Attestation: I reviewed the patient's medical records. Medical records narrative: Chart from his [facility] emergency department visit reveals that he had slightly elevated troponin, CMP notable for slightly decreased sodium at 132, elevated BUN at 3 0, elevated creatinine at 1.85. UA negative CT scan revealed distended gallbladder, left nephrectomy, absence of right renal collecting system dilation, unremarkable abdomen pelvis CT otherwise. The daughter told me that they did 2 troponins and offered admission but the patient wanted to go home. He had been discharged home with prescription for zofran ODT and has no improvement. Lab Data Attestation: I reviewed the patient's lab results. Labs: Lab Results 11/05/23 Range/Units 10:47 WBC 8.9 (4.0-11.0) 10^3/uL RBC 4.86 (4.70-6.10) 10^6/uL Hgb 13.6 L (14.0-18.0) g/dL Hct 40.8 L (42.0-54.0) % MCV 84.0 (80.0-94.0) fL MCH 28.0 (25.9-34.0) pg MCHC 33.3 (29.9-35.2) g/dL RDW 14.2 (11.0-15.0) % Plt Count 360 (150-450) 10^3/uL MPV 9.3 L (9.5-13.5) fL Neut % (Auto) 84.8 H (43.0-75.0) % Lymph % (Auto) 4.7 L (20.5-60.0) % Rutherford % (Auto) 9.2 (1.7-12.0) % Eos % (Auto) 0.4 L (0.9-7.0) % Baso % (Auto) 0.2 (0.2-2.0) % Neut # (Auto) 7.6 H (1.4-6.5) 10^3/uL Lymph # (Auto) 0.4 L (1.2-3.8) 10^3/uL Rutherford # (Auto) 0.8 (0.3-0.8) 10^3/uL Eos # (Auto) 0.0 (0.0-0.7) 10^3/uL Baso # (Auto) 0.0 (0.0-0.1) 10^3/uL Abs Immat Gran (auto) 0.06 H (0.00-0.03) 10^3/uL Imm/Tot Granulo (auto) 0.7 H (0.0-0.5) % Sodium 136 (136-145) mmol/L Potassium 4.1 (3.5-5.1) mmol/L Chloride 102 (98-107) mmol/L Carbon Dioxide 25.6 (21.0-32.0) mmol/L Anion Gap 12.5 BUN 29.0 H (7.0-18.0) mg/dL Creatinine 2.04 H (0.70-1.30) mg/dL Est GFR ( Amer) 38 L (>=60) Est GFR (Non-Af Amer) 31 L (>=60) BUN/Creatinine Ratio 14.2 Glucose 101 (74-106) mg/dL Calcium 8.3 L (8.5-10.1) mg/dL Total Bilirubin 0.6 (0.2-1.0) mg/dL Direct Bilirubin 0.2 (0.0-0.2) mg/dL AST 19 (15-37) U/L ALT 21 (16-63) U/L Alkaline Phosphatase 54 (46-116) U/L Troponin I High Sens 64.9 (4.0-76.1) pg/mL Total Protein 5.3 L (6.4-8.2) g/dL Albumin 2.5 L (3.4-5.0) g/dL Globulin 2.8 g/dL Albumin/Globulin Ratio 0.9 Lipase 36.0 (16.0-77.0) U/L Imaging Data xr abd & RUQ US: Radiologist's impression: ITS Impressions Upper Quadrant Ultrasound 11/05/23 10:48 IMPRESSION: 2.4 cm echogenic focus in the right hepatic lobe, nonspecific possibly a hemangioma Extensive gallbladder sludge without evidence of cholecystitis Electronically authenticated by: HAZEL RAMIREZ Date: 11/05/2023 12:22 Abdomen X-Ray 11/05/23 12:33 IMPRESSION: 1. Nonobstructive bowel gas pattern. Electronically authenticated by: PATRICIA TALBOT Date: 11/05/2023 13:12 ECG Data Attestation: I personally reviewed and interpreted this ECG as follows: Interpretation: EKG interpretation: Emergency Department physician interpretation. Normal sinus rhythm at 67bpm. Left bundle branch block. This EKG is different from 1 obtained on March 10, 2023. On that EKG he had right axis deviation, right bundle branch block. Discharge Plan Discharge Chief Complaint: Abdominal Pain Clinical Impression: Intractable nausea and vomiting Patient Disposition: Admitted as Observation Time of Disposition Decision: 12:36 Discharge Date/Time: 11/05/23 13:30
[2023-11-05 11:18] LABS: Basophils Percent Auto 0.2 % (0.2-2.0); Eosinophils Percent Auto 0.4 % (0.9-7.0); Hematocrit 40.8 % (42.0-54.0); Hemoglobin 13.6 g/dL (14.0-18.0); Immature Granulocytes Abs Auto 0.06 10^3/uL (0.00-0.03); Immature Granulocytes Pct Auto 0.7 % (0.0-0.5); Lymphocytes Absolute Auto 0.4 10^3/uL (1.2-3.8); Lymphocytes Percent Auto 4.7 % (20.5-60.0); Mean Corpuscular HGB Conc 33.3 g/dL (29.9-35.2); Mean Platelet Volume 9.3 fL (9.5-13.5); Monocytes Absolute Auto 0.8 10^3/uL (0.3-0.8); Monocytes Percent Auto 9.2 % (1.7-12.0); Neutrophils Absolute Auto 7.6 10^3/uL (1.4-6.5); Neutrophils Percent Auto 84.8 % (43.0-75.0); Platelet Count 360 10^3/uL (150-450); Red Blood Count 4.86 10^6/uL (4.70-6.10); Red Cell Distribution Width 14.2 % (11.0-15.0); White Blood Count 8.9 10^3/uL (4.0-11.0)
[2023-11-05 11:33] LABS: Alanine Aminotransferase 21 U/L (16-63); Albumin Globulin Ratio 0.9; Albumin Level 2.5 g/dL (3.4-5.0); Alkaline Phosphatase 54 U/L (46-116); Anion Gap 12.5; Aspartate Amino Transferase 19 U/L (15-37); BUN Creatinine Ratio 14.2; Bilirubin Total 0.6 mg/dL (0.2-1.0); Calcium 8.3 mg/dL (8.5-10.1); Carbon Dioxide 25.6 mmol/L (21.0-32.0); Chloride 102 mmol/L (98-107); Estimated GFR (African America 38 (>=60); Estimated GFR (Non-African Ame 31 (>=60); Globulin 2.8 g/dL; Glucose 101 mg/dL (74-106); Potassium 4.1 mmol/L (3.5-5.1); Sodium 136 mmol/L (136-145); Total Protein 5.3 g/dL (6.4-8.2)
[2023-11-05 11:36] LABS: Bilirubin Direct 0.2 mg/dL (0.0-0.2); Troponin I High Sensitivity 64.9 pg/mL (4.0-76.1)
--- NOTE | 2023-11-05 12:33 | XR_ITS ---
[facility] [place] [id number] Patient Name: YONG AUSTIN MRN: [id number] date: 1940 Sex: M Assigned Patient Location: ER Current Patient Location: ER Accession/Order Number: [id number] Exam Date: 11/05/2023 12:50 Report Date: 11/05/2023 13:12 At the request of: SHARMILA BAER Procedure: XR abdomen min 2V EXAMINATION: XR abdomen min 2V, 11/05/2023 12:50 PM EST HISTORY: intractable nausea vomiting COMPARISON: Relevant priors reviewed TECHNIQUE: Upright and supine views of the abdomen. FINDINGS: Procedure change projects over the abdomen. Nonobstructive bowel gas pattern. No appreciable urinary calculi. No definite free intraperitoneal gas. XR/XR abdomen min 2V IMPRESSION: 1. Nonobstructive bowel gas pattern. Electronically authenticated by: PATRICIA TALBOT Date: 11/05/2023 13:12
--- OUTSIDE RECORDS SUMMARY | 2023-11-05 13:45 | XMS_ITS | CCD ---
Author Name Unknown Address [address] [place] [address] Organization [facility] Care Team Providers Care Generator Rebuilder Name Role Phone PHYSICIAN, DEFAULT Unavailable Unavailable PHYSICIAN, DEFAULT Unavailable Unavailable PHYSICIAN, DEFAULT Unavailable Unavailable PHYSICIAN, DEFAULT Unavailable Unavailable Yoan Sneed MD Primary Care Provider [phone] Jian Rodriguez MD Unavailable Unavailable Mike BARBER, Lauren Barros Unavailable [phone] Soren Perea MD Unavailable [phone] Corazon Maxwell PA-C Unavailable Augusto Sauceda Unavailable Shawn Nelson Unavailable Yoan Sneed MD Primary Care Provider [phone] Jian Rodriguez MD Unavailable Unavailable Soren Perea MD Unavailable Casey Castaneda MD Unavailable Yoan Sneed Primary Care Physician [phone] Yoan Sneed MD Primary Care Provider [phone] Caesar Prado MD Unavailable [phone] Saray BARBER, Margot Unavailable Wayne Chavez APRN.CNP Unavailable PAY ., DR SEVILLA Consulting Unavailable PAY ., DR SEVILLA Admitting Unavailable NAREN ., DR MILOTN Primary Care Unavailable PAY ., DR SEVILLA [...] RODRIGUEZ Attending Unavailable Saray BARBER, Margot Unavailable [phone] JIMBO BAUTISTA Attending Unavailable DAGOBERTO JAMES Attending [...] reactions to substance 8 Other: See Comments [facility] (2 sources) Adhesive Tape; Translations: [Tape] Allergy to substance Blister of skin without infection (disorder) [facility] (1 source) Desonide Drug Allergy [facility] Repository (1 source) No Known Medication Allergies; Translations: [No Known Medication Allergies] Propensity to adverse reactions (disorder) [facility] Repository (2 sources) Adhesive agent; Translations: [ADHESIVE] Propensity to adverse reactions to drug (disorder) 8 [facility] Repository (1 source) OTHER; Translations: [OTHER] Propensity to adverse reactions (disorder) 8 [facility] Repository NEGATED: Highlighted row has been ruled out! (1 source) Drug allergy [facility] Medications Current Medications Medication Drug Class(es) Dates [...] Comment on above: Take 1 capsule by [facility] twice daily. Take 20 mg by [...] Comment on above: Take 1 tablet by [facility] every 8 hours as needed for nausea/vomiting. [...] once daily. Take 4 tablets by [facility] once daily. prochlorperazine 10 mg oral tablet [...] on above: Take 2 tablets by mo [facility] every 4 hours as needed for Pain. [...] Comment on above: Take 1 tablet by [facility] once daily. ciprofloxacin 250 mg oral tablet (1 source) Quinolone Antimicrobial Start: 3 take 1 tablet by mouth once daily Cipro 250 mg Tab 250 mg = 1 tab(s), Oral, Daily, Take 1 tablet the day before the procedure and 1 tablet after the procedure, # 2 tab(s), Refills(s) 0, Pharmacy: [facility] [id number], 167, cm, 12/05/22 9:25:00 EST, Height/Length Dosing, [...] 11/26/2022 Start: 05-23-2022 take 1 capsule by [facility] twice daily docusate sodium (COLACE) 100 mg capsule Take 1 capsule by mouth twice daily. 10 capsule 0 05/23/2022 Active Comment on above: Take 1 capsule by [facility] twice daily. Take 1 capsule by [facility] twice daily for 14 days. Stop [...] Take 325 mg by mouth . Fish Oil-[place]-3 Fatty Acids (FISH OIL) 300-1,000 mg cap (13 sources) take 1 capsule by mouth once daily Fish Oil-[place]-3 Fatty Acids (FISH OIL) 300-1,000 mg cap [...] 3 Chronic Other aftercare (1 source) Other ocean transportation intermediary (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; Translations: [OTH SLUBBER FRAME CHANGER CURRENT DRUG THERAPY] Onset: 3 Episodic Other aftercare (1 source) [facility] (current) use of aspirin; Translations: [LONGTERM CURRENT USE OF ASPIRIN] Onset: 3 Episodic [...] 11-02-19 ABSOLUTE BASOPHIL 0.0 X10E9/L Normal 0.0-0.2 [facility] Comment on above: Performed By: #### C BCA, 95332-2, CMP, 3040-3, 31517-3, 01932- 9 #### [facility] ([id number]) [address] [place] [address] 46318 ABSOLUTE NEUTROPHIL 8.0 X10E9/L High 1.5-6.6 [facility] Comment on above: Performed By: #### C BCA, 31023-7, CMP, 3040-3, 93362-2, 30808- 9 #### [facility] ([id number]) [address] [place] [address] 99375 Basophils/100 WBC (Bld) 0.3 % Normal [facility] Comment on above: Performed By: #### C BCA, 51777-9, CMP, 3040-3, 48434-0, 97086- 9 #### [facility] ([id number]) [address] [place] [address] 30078 Eosinophils (Bld) [#/Vol] 0.1 10*3/uL Normal 0.0-0.4 [facility] Comment on above: Performed By: #### C BCA, 87929-7, CMP, 3040-3, 24296-3, 16799- 9 #### [facility] ([id number]) [address] [place] [address] 81061 Eosinophils/100 WBC (Bld) 0.9 % Normal [facility] Comment on above: Performed By: #### C BCA, 56275-9, CMP, 3040-3, 87226-6, 98686- 9 #### [facility] ([id number]) [address] [place] [address] 17072 Erythrocyte distribution width (RBC) [Ratio] 14.8 % Normal 11.5-15.0 [facility] Comment on above: Performed By: #### Emir CAMPOS, 81010-4, CMP, 3040-3, 27865-8, - #### [facility] ([id number]) [address] [place] [address] 85649 Hematocrit (Bld) [Volume fraction] 40.4 % Normal 39-49 [facility] Comment on above: Performed By: #### C BCA, 18647-8, CMP, 3040-3, 56808-5, 81488- 9 #### [facility] ([id number]) [address] [place] [address] 57249 Hemoglobin (Bld) [Mass/Vol] 14.1 g/dL Normal 13.0-17.0 [facility] Comment on above: Performed By: #### Emir BCA, 83211-3, CMP, 3040-3, 30072-9, 74772- 9 #### [facility] ([id number]) [address] [place] [address] 39480 Lymphocytes (Bld) [#/Vol] 0.4 10*3/uL Low 1.0-3.5 [facility] Comment on above: Performed By: #### Emir BCA, 50796-2, CMP, 3040-3, 30049-0, 77715- 9 #### [facility] ([id number]) [address] [place] [address] 39528 Lymphocytes/100 WBC (Bld) 4.7 % Normal [facility] Comment on above: Performed By: #### C BCA, 19103-6, CMP, 3040-3, 32048-9, - #### [facility] ([id number]) [address] [place] [address] 11833 MCH (RBC) [Entitic mass] 27.5 pg Normal 27-34 [facility] Comment on above: Performed By: #### C BCA, 95678-3, CMP, 3040-3, 02915-5, - #### [facility] ([id number]) [address] [place] [address] 37091 MCHC (RBC) [Mass/Vol] 35.0 g/dL Normal 32-36 [facility] Comment on above: Performed By: #### Emir BCA, 38188-7, CMP, 3040-3, 79323-3, - #### [facility] ([id number]) [address] [place] [address] 34097 MCV (RBC) [Entitic vol] 79 fL Low 80-100 [facility] Comment on above: Performed By: #### C BCA, 36053-0, CMP, 3040-3, 45657-0, - #### [facility] ([id number]) [address] [place] [address] 01868 Monocytes (Bld) [#/Vol] 0.7 10*3/uL Normal 0-0.9 [facility] Comment on above: Performed By: #### C BCA, 66255-2, CMP, 3040-3, 33146-5, - #### [facility] ([id number]) [address] [place] [address] 67473 Monocytes/100 WBC (Bld) 7.9 % Normal [facility] Comment on above: Performed By: #### C BCA, 96055-4, CMP, 3040-3, 54676-8, 82812- 9 #### [facility] ([id number]) [address] [place] [address] 91047 Neutrophils/100 WBC (Bld) 86.2 % Normal [facility] Comment on above: Performed By: #### C BCA, 08854-1, CMP, 3040-3, 95253-6, 73687- 9 #### [facility] ([id number]) [address] [place] [address] 47297 Platelet mean volume (Bld) [Entitic vol] 6.9 fL Low 7-12 [facility] Comment on above: Performed By: #### C BCA, 74060-7, CMP, 3040-3, 28946-2, 84149- 9 #### [facility] ([id number]) [address] [place] [address] 03704 Platelets (Bld) [#/Vol] 345 10*3/uL Normal 150-450 [facility] Comment on above: Performed By: #### C BCA, 41728-6, CMP, 3040-3, 19652-1, 10742- 9 #### [facility] ([id number]) [address] [place] [address] 15758 RBC COUNT 5.13 X10E12/L Normal 4.10-5.70 [facility] Comment on above: Performed By: #### C BCA, 05129-8, CMP, 3040-3, 19041-0, 01376- 9 #### [facility] ([id number]) [address] [place] [address] 45916 WBC (Bld) [#/Vol] 9.3 10*3/uL Normal 4.0-11.0 [facility] Comment on above: Performed By: #### C BCA, 48084-0, CMP, 3040-3, 17899-9, 42338- 9 #### [facility] ([id number]) [address] [place] [address] 44316 COMPREHENSIVE METABOLIC PANE Taj 11-02-2023 Albumin [Mass/Vol] 3.2 g/dL Normal 3.2-5.3 [facility] Comment on above: Performed By: #### C BCA, 96289-3, CMP, 3040-3, 46027-8, 35468- 9 #### [facility] ([id number]) [address] [place] [address] 57146 ALP [Catalytic activity/Vol] 54 U/L Normal 39-130 [facility] Comment on above: Performed By: #### C BCA, 45447-6, CMP, 3040-3, 57902-1, 33474- 9 #### [facility] ([id number]) [address] [place] [address] 71544 ALT [Catalytic activity/Vol] 19 U/L Normal 0-40 [facility] Comment on above: Performed By: #### C BCA, 50169-7, CMP, 3040-3, 64149-2, 96867- 9 #### [facility] ([id number]) [address] [place] [address] 69921 Anion gap [Moles/Vol] 9 mmol/L Normal 5-15 [facility] Comment on above: Performed By: #### C BCA, 23267-5, CMP, 3040-3, 51273-4, 11394- 9 #### [facility] ([id number]) [address] [place] [address] 12221 AST [Catalytic activity/Vol] 24 U/L Normal 0-41 [facility] Comment on above: Performed By: #### C BCA, 73695-9, CMP, 3040-3, 78809-6, 57073- 9 #### [facility] ([id number]) [address] [place] [address] 50292 Bilirubin [Mass/Vol] 0.9 mg/dL Normal 0.3-1.2 [facility] Comment on above: Performed By: #### C BCA, 93799-8, CMP, 3040-3, 27227-0, 04340- 9 #### [facility] ([id number]) [address] [place] [address] 12792 Calcium [Mass/Vol] 8.3 mg/dL Low 8.5-10.5 [facility] Comment on above: Performed By: #### C BCA, 95102-5, CMP, 3040-3, 26464-4, 93512- 9 #### [facility] ([id number]) [address] [place] [address] 21166 Chloride [Moles/Vol] 99 mmol/L Normal 98-109 [facility] Comment on above: Performed By: #### C BCA, 70950-4, CMP, 3040-3, 26322-2, - 9 #### [facility] ([id number]) [address] [place] [address] 15223 CO2 [Moles/Vol] 24 mmol/L Normal 22-32 [facility] Comment on above: Performed By: #### C BCA, 45397-5, CMP, 3040-3, 52637-4, - 9 #### [facility] ([id number]) [address] [place] [address] 92827 Creatinine [Mass/Vol] 1.85 mg/dL High 0.70-1.20 [facility] Comment on above: Result Comment: METH OD TRACEABLE TO IDMS STANDARD Performed By: #### C BCA, 53024-1, CMP, 3040-3, 11957-9, 09602-6 #### [facility] ([id number]) [address] [place] [address] 53399 GFR/1.73 sq M.predicted among non-blacks MDRD (S/P/Bld) [Vol rate/Area] 35 mL/min/{1.73_m2} Low >59 [facility] Comment on above: Result Comment: Reported eGFR is based on the CKD-EPI 2020 equation that does not use a race coefficient. Performed By: #### C BCA, 08061-2, CMP, 3040-3, 97902-2, 92742-8 #### [facility] ([id number]) [address] [place] [address] 82468 Glucose [Mass/Vol] 118 mg/dL High 65-99 [facility] Comment on above: Performed By: #### C BCA, 77846-6, CMP, 3040-3, 15114-7, 95246- 9 #### [facility] ([id number]) [address] [place] [address] 86406 Potassium [Moles/Vol] 3.9 mmol/L Normal 3.5-5.0 [facility] Comment on above: Performed By: #### C BCA, 79163-5, CMP, 3040-3, 26272-9, 65512- 9 #### [facility] ([id number]) [address] [place] [address] 05868 Protein [Mass/Vol] 5.5 g/dL Low 6.0-8.0 [facility] Comment on above: Performed By: #### C BCA, 61556-9, CMP, 3040-3, 48443-3, 32499- 9 #### [facility] ([id number]) [address] [place] [address] 08783 Sodium [Moles/Vol] 132 mmol/L Low 134-146 [facility] Comment on above: Performed By: #### C BCA, 86892-0, CMP, 3040-3, 36545-9, 43925- 9 #### [facility] ([id number]) [address] [place] [address] 41406 Urea nitrogen [Mass/Vol] 30 mg/dL High 5-27 [facility] Comment on above: Performed By: #### C BCA, 68681-6, CMP, 3040-3, 52177-4, 48209- 9 #### [facility] ([id number]) [address] [place] [address] ABDOMEN AND PELVIS W CONT on [...] Licea MD on 11/02/2023 2:43 PM Normal [facility] LIPASEon 11-02-2023 Lipase [Catalytic activity/Vol] 45 U/L High 17-40 [facility] Comment on above: Performed By: #### C BCA, 38736-5, CMP, 3040-3, 40492-1, 89749- 9 #### [facility] ([id number]) [address] [place] [address] 10168 Lactate (P michelle) [Moles/Vol]o n 11-02-2023 LACTATE W/REFLEX 1.2 mmol/L Normal 0.4-2.0 [facility] Comment on above: Result Comment: Result did not trigger repeat Lactate, re-order if needed. Performed By: #### C BCA, 70191-0, CMP, 3040-3, 02667-9, 29600-5 #### [facility] ([id number]) [address] [place] [address] MAGNESIUMon 11-02-2023 Magnesium [Mass/Vol] 1.7 mg/dL Low 1.8-2.6 [facility] Comment on above: Performed By: #### C BCA, 96260-6, CMP, 3040-3, 13969-8, 20238- 9 #### [facility] ([id number]) [address] [place] [address] SARS/FLU A+B/RSV by NAAT/Mol ecularon 11-02-2023 SARS/FLU [...] operators who are performing tests using either Mantex DX or [employer] systems and is limited to laboratories that [...] repeat. Fact Sheet for Healthcare Providers: https://www.fda.gov/m edia/820306/download Fact Sheet for Patients: https://www.fda.gov/m edia/653069/download Normal [facility] Comment on above: Performed By: #### C OVFLR #### [facility] ([id number]) [address] [place] [address] 88804 TROPONIN Ion 11-02-2023 Troponin I.cardiac [Mass/Vol] 0.07 ng/mL High 0.00-0.04 [facility] Comment on above: Result Comment: Concentrations greater than or equal to 0.05 ng/ml are considered elevated. Elevations of Troponin may be due to causes other than myocardial ischemia. Recommend serial Troponin testing be performed. Performed By: #### 1 0839-9 #### [facility] ([id number]) [address] [place] [address] 40040 Troponin I.cardiac [Mass/Vol] 0.07 ng/mL High 0.00-0.04 [facility] Comment on above: Result Comment: Concentrations greater than or equal to 0.05 ng/ml are considered elevated. Elevations of Troponin may be due to causes other than myocardial ischemia. Recommend serial Troponin testing be performed. Performed By: #### C BCA, 96172-4, CMP, 3040-3, 24845-8, 37611-7 #### [facility] ([id number]) [address] [place] [address] 75109 URN MACROSCOPIC NURon 2023 BILIRUBIN JUDY Negative Normal NEG [facility] Comment on above: Performed By: #### N UM #### [facility] ([id number]) [address] [place] [address] 03579 BLOOD/HGB JUDY Trace Abnormal NEG [facility] Comment on above: Performed By: #### N UM #### [facility] ([id number]) [address] [place] [address] 40788 GLUCOSE JUDY Negative Normal NEG [facility] Comment on above: Performed By: #### N UM #### [facility] ([id number]) [address] [place] [address] 83785 KETONES JUDY Negative Normal NEG [facility] Comment on above: Performed By: #### N UM #### [facility] ([id number]) [address] [place] [address] 61137 LEUKOCYTE ESTERASE JUDY Negative Normal NEG [facility] Comment on above: Performed By: #### N UM #### [facility] ([id number]) [address] [place] [address] 79665 NITRITE JUDY Negative Normal NEG [facility] Comment on above: Performed By: #### N UM #### [facility] ([id number]) [address] [place] [address] 80982 PH JUDY 5.5 Normal 5.0-8.5 [facility] Comment on above: Performed By: #### N UM #### [facility] ([id number]) [address] [place] [address] 27645 PROTEIN JUDY Negative Normal NEG [facility] Comment on above: Performed By: #### N UM #### [facility] ([id number]) [address] [place] [address] 00692 SPECIFIC GRAVITY JUDY <=1.005 Normal 1.003-1.035 [facility] Comment on above: Performed By: #### N UM #### [facility] ([id number]) [address] [place], [place] [address] UROBILINOGEN JUDY 0.2 eu/dL Normal <1.1 [facility] Comment on above: Performed By: #### N UM #### [facility] ([id number]) [address] [place], [place] [address] CNPNon 10-29-2023 CNPN Normal [facility] CBC W Auto Differential pane l (Bld)on 10-10-2023 Basophils (Bld) [#/Vol] 0.08 10*3/uL Normal <0.11 [facility] Comment on above: Order Comment: Speci men Type: BLOOD SPECIMENOrdering Facility: [facility] Address: [address] [place] [address] Performed By: #### 5 7021-8 ####[facility] [id number] [place] [address] Basophils/100 WBC (Bld) 1.0 % Normal [facility] Comment on above: Order Comment: Speci men Type: BLOOD SPECIMENOrdering Facility: [facility] Address: [address] [place] [address] Performed By: #### 5 7021-8 ####[facility] [id number] [place] [address] Differential cell count method Nom (Bld) Auto Normal [facility] Comment on above: Order Comment: Speci men Type: BLOOD SPECIMENOrdering Facility: [facility] Address: [address] [place] [address] Performed By: #### 5 7021-8 ####[facility] [id number] [place] [address] Eosinophils (Bld) [#/Vol] 0.14 10*3/uL Normal <0.46 [facility] Comment on above: Order Comment: Speci men Type: BLOOD SPECIMENOrdering Facility: [facility] Address: [address] [place] [address] Performed By: #### 5 7021-8 ####[facility] [id number] [place] [address] Eosinophils/100 WBC (Bld) 1.8 % Normal [facility] Comment on above: Order Comment: Speci men Type: BLOOD SPECIMENOrdering Facility: [facility] Address: [address] [place] [address] Performed By: #### 5 7021-8 ####[facility] [id number] [place] [address] Erythrocyte distribution width (RBC) [Ratio] 14.0 % Normal 11.5-15.0 [facility] Comment on above: Order Comment: Speci men Type: BLOOD SPECIMENOrdering Facility: [facility] Address: [address] [place] [address] Performed By: #### 5 7021-8 ####[facility] [id number] [place] [address] Hematocrit (Bld) [Volume fraction] 40.5 % Normal 39.0-51.0 [facility] Comment on above: Order Comment: Speci men Type: BLOOD SPECIMENOrdering Facility: [facility] Address: [address] [place] [address] Performed By: #### 5 7021-8 ####[facility] [id number] [place] [address] Hemoglobin (Bld) [Mass/Vol] 13.1 g/dL Normal 13.0-17.0 [facility] Comment on above: Order Comment: Speci men Type: BLOOD SPECIMENOrdering Facility: [facility] Address: [address] [place] [address] Performed By: #### 5 7021-8 ####[facility] [id number] [place] [address] Immature granulocytes (Bld) [#/Vol] 0.04 10*3/uL Normal <0.10 [facility] Comment on above: Order Comment: Speci men Type: BLOOD SPECIMENOrdering Facility: [facility] Address: [address] [place] [address] Performed By: #### 5 7021-8 ####[facility] [id number] [place] [address] Immature granulocytes/100 WBC (Bld) 0.5 % Normal [facility] Comment on above: Order Comment: Speci men Type: BLOOD SPECIMENOrdering Facility: [facility] Address: [address] [place] [address] Performed By: #### 5 7021-8 ####[facility] [id number] [place] [address] Lymphocytes (Bld) [#/Vol] 0.81 10*3/uL Low 1.00-4.00 [facility] Comment on above: Order Comment: Speci men Type: BLOOD SPECIMENOrdering Facility: [facility] Address: [address] [place] [address] Performed By: #### 5 7021-8 ####[facility] [id number] [place] [address] Lymphocytes/100 WBC (Bld) 10.3 % Normal [facility] Comment on above: Order Comment: Speci men Type: BLOOD SPECIMENOrdering Facility: [facility] Address: [address] [place] [address] Performed By: #### 5 7021-8 ####[facility] [id number] [place] [address] MCH (RBC) [Entitic mass] 27.8 pg Normal 26.0-34.0 [facility] Comment on above: Order Comment: Speci men Type: BLOOD SPECIMENOrdering Facility: [facility] Address: [address] [place] [address] Performed By: #### 5 7021-8 ####[facility] [id number] [place] [address] MCHC (RBC) [Mass/Vol] 32.3 g/dL Normal 30.5-36.0 [facility] Comment on above: Order Comment: Speci men Type: BLOOD SPECIMENOrdering Facility: [facility] Address: [address] [place] [address] Performed By: #### 5 7021-8 ####[facility] [id number] [place] [address] MCV (RBC) [Entitic vol] 85.8 fL Normal 80.0-100.0 [facility] Comment on above: Order Comment: Speci men Type: BLOOD SPECIMENOrdering Facility: [facility] Address: [address] [place] [address] Performed By: #### 5 7021-8 ####[facility] [id number] [place] [address] Monocytes (Bld) [#/Vol] 0.55 10*3/uL Normal <0.87 [facility] Comment on above: Order Comment: Speci men Type: BLOOD SPECIMENOrdering Facility: [facility] Address: [address] [place] [address] Performed By: #### 5 7021-8 ####[facility] [id number] [place] [address] Monocytes/100 WBC (Bld) 7.0 % Normal [facility] Comment on above: Order Comment: Speci men Type: BLOOD SPECIMENOrdering Facility: [facility] Address: [address] [place] [address] Performed By: #### 5 7021-8 ####[facility] [id number] [place] [address] Neutrophils (Bld) [#/Vol] 6.21 10*3/uL Normal 1.45-7.50 [facility] Comment on above: Order Comment: Speci men Type: BLOOD SPECIMENOrdering Facility: [facility] Address: [address] [place] [address] Performed By: #### 5 7021-8 ####[facility] [id number] [place] [address] Neutrophils/100 WBC (Bld) 79.4 % Normal [facility] Comment on above: Order Comment: Speci men Type: BLOOD SPECIMENOrdering Facility: [facility] Address: [address] [place] [address] Performed By: #### 5 7021-8 ####[facility] LABCLIA [id number] [place] [address] Nucleated RBC (Bld) [#/Vol] 10*3/uL Normal <0.01 [facility] Comment on above: Order Comment: Speci men Type: BLOOD SPECIMENOrdering Facility: [facility] Address: [address] [place] [address] Performed By: #### 5 7021-8 ####[facility] LABCLIA [id number] [place] [address] Nucleated RBC/100 WBC (Bld) [Ratio] 0.0 /100 WBC Normal [facility] Comment on above: Order Comment: Speci men Type: BLOOD SPECIMENOrdering Facility: [facility] Address: [address] [place] [address] Performed By: #### 5 7021-8 ####[facility] LABCLIA [id number] [place] [address] Platelet mean volume (Bld) [Entitic vol] 8.6 fL Low 9.0-12.7 [facility] Comment on above: Order Comment: Speci men Type: BLOOD SPECIMENOrdering Facility: [facility] Address: [address] [place] [address] Performed By: #### 5 7021-8 ####[facility] [facility] [id number] [place] [address] Platelets (Bld) [#/Vol] 253 10*3/uL Normal 150-400 [facility] Comment on above: Order Comment: Speci men Type: BLOOD SPECIMENOrdering Facility: [facility] Address: [address] [place] [address] Performed By: #### 5 7021-8 ####[facility] LABIA [id number] [place] [address] RBC (Bld) [#/Vol] 4.72 10*6/uL Normal 4.20-6.00 [facility] Comment on above: Order Comment: Speci men Type: BLOOD SPECIMENOrdering Facility: [facility] Address: [address] [place] [address] Performed By: #### 5 7021-8 ####[facility] [id number] [place] [address] WBC (Bld) [#/Vol] 7.83 10*3/uL Normal 3.70-11.00 [facility] Comment on above: Order Comment: Speci men Type: BLOOD SPECIMENOrdering Facility: [facility] Address: [address] [place] [address] Performed By: #### 5 7021-8 ####[facility] LABIA [id number] [place] [address] CNOVSPon 10-10-2023 CNOVSP Normal [facility] Comprehensive metabolic 2000 panelon 10-10-2023 Albumin [Mass/Vol] 4.0 g/dL Normal 3.9-4.9 [facility] Comment on above: Order Comment: Speci men Type: BLOOD SPECIMENOrdering Facility: [facility] Address: [address] [place] [address] Performed By: #### 2 4323-8 ####[facility] LABIA [id number] [place] [address] ALP [Catalytic activity/Vol] 75 U/L Normal 38-113 [facility] Comment on above: Order Comment: Speci men Type: BLOOD SPECIMENOrdering Facility: [facility] Address: [address] [place] [address] Performed By: #### 2 4323-8 ####[facility] LABCLIA [id number] [place] [address] ALT [Catalytic activity/Vol] 15 U/L Normal 10-54 [facility] Comment on above: Order Comment: Speci men Type: BLOOD SPECIMENOrdering Facility: [facility] Address: [address] [place] [address] Performed By: #### 2 4323-8 ####[facility] LABCLIA [id number] [place] [address] Anion gap [Moles/Vol] 8 mmol/L Low 9-18 [facility] Comment on above: Order Comment: Speci men Type: BLOOD SPECIMENOrdering Facility: [facility] Address: [address] [place] [address] Performed By: #### 2 4323-8 ####[facility] LABCLIA [id number] [place] [address] AST [Catalytic activity/Vol] 23 U/L Normal 14-40 [facility] Comment on above: Order Comment: Speci men Type: BLOOD SPECIMENOrdering Facility: [facility] Address: [address] [place] [address] Performed By: #### 2 4323-8 ####[facility] LABCLIA [id number] [place] [address] Bilirubin [Mass/Vol] 0.4 mg/dL Normal 0.2-1.3 [facility] Comment on above: Order Comment: Speci men Type: BLOOD SPECIMENOrdering Facility: [facility] Address: [address] [place] [address] Performed By: #### 2 4323-8 ####[facility] LABCLIA [id number] [place] [address] Calcium [Mass/Vol] 9.0 mg/dL Normal 8.5-10.2 [facility] Comment on above: Order Comment: Speci men Type: BLOOD SPECIMENOrdering Facility: [facility] Address: [address] [place] [address] Performed By: #### 2 4323-8 ####[facility] LABCLIA [id number] [place] [address] Chloride [Moles/Vol] 99 mmol/L Normal 97-105 [facility] Comment on above: Order Comment: Speci men Type: BLOOD SPECIMENOrdering Facility: [facility] Address: [address] [place] [address] Performed By: #### 2 4323-8 ####[facility] LABCLIA [id number] [place] [address] CO2 [Moles/Vol] 27 mmol/L Normal 22-30 [facility] Comment on above: Order Comment: Speci men Type: BLOOD SPECIMENOrdering Facility: [facility] Address: [address] [place] [address] Performed By: #### 2 4323-8 ####[facility] LABCLIA [id number] [place] [address] Creatinine [Mass/Vol] 1.78 mg/dL High 0.73-1.22 [facility] Comment on above: Order Comment: Speci men Type: BLOOD SPECIMENOrdering Facility: [facility] Address: [address] [place] [address] Performed By: #### 2 4323-8 ####[facility] LABCLIA [id number] [place] [address] Creatinine and Glomerular filtration rate.predicted panel (S/P/Bld) 37 mL/min/1.73m??? Low >=60 [facility] Comment on above: Order Comment: Speci men Type: BLOOD SPECIMENOrdering Facility: [facility] Address: [address] [place] [address] Result Comment: Viviana mated Glomerular Filtration Rate [...] actual GFR. Performed By: #### 2 4323-8 ####[facility] LABCLIA [id number] [place] [address] Glucose [Mass/Vol] 109 mg/dL High 74-99 [facility] Comment on above: Order Comment: Vero barton Type: BLOOD SPECIMENOrdering Facility: [facility] Address: [address] [place] [address] Result Comment: The [place] Diabetes Association (ADA) provides guidance for cutoff [...] Standards of Medical Care in Diabetes 2016, [place] Diabetes Association. Diabetes Care. 2016.39(Suppl 1). Performed By: #### 2 4323-8 ####[facility] LABCLIA [id number] [place] [address] Potassium [Moles/Vol] 3.9 mmol/L Normal 3.7-5.1 [facility] Comment on above: Order Comment: Vero barton Type: BLOOD SPECIMENOrdering Facility: [facility] Address: [address] [id number] Performed By: #### 2 4323-8 ####[facility] LABCLIA [id number] [place] [address] Protein [Mass/Vol] 6.0 g/dL Low 6.3-8.0 [facility] Comment on above: Order Comment: Speci men Type: BLOOD SPECIMENOrdering Facility: [facility] Address: [address] [place] [address] Performed By: #### 2 4323-8 ####[facility] LABCLIA [id number] [place] [address] Sodium [Moles/Vol] 134 mmol/L Low 136-144 [facility] Comment on above: Order Comment: Speci men Type: BLOOD SPECIMENOrdering Facility: [facility] Address: [address] [place] [address] Performed By: #### 2 4323-8 ####[facility] LABCLIA [id number] [place] [address] Urea nitrogen [Mass/Vol] 29 mg/dL High 9-24 [facility] Comment on above: Order Comment: Speci men Type: BLOOD SPECIMENOrdering Facility: [facility] Address: [address] [place] [address] Performed By: #### 2 4323-8 ####[facility] LABCLIA [id number] [place] [address] Beverly Keisha-Ricaon 10-10-20 23 Cortisol [Mass/Vol] 8.6 ug/dL Normal 4.8-19.5 [facility] Comment on above: Order Comment: Speci men Type: BLOOD SPECIMENOrdering Facility: [facility] Address: [address] [place] [address] Result Comment: Prov ided reference range is from 6-10 AM sample collection time.Cortisol Reference Range: 6-10 AM = 4.8-19.5 ug/dL, 4-8 PM = 2.5-11.9 ug/dL Performed By: #### 3 016-3, 2143-6 ####[facility] LABCLIA [id number] [facility] [id number] [address] [place] HbA1c (Bld)on 10-10-2023 Average glucose Estimated from glycated hemoglobin (Bld) [Mass/Vol] 105 mg/dL Normal [facility] Comment on above: Order Comment: Vero barton Type: BLOOD SPECIMENOrdering Facility: [facility] Address: [address] [place] [address] Result Comment: eAG: (Estimated average glucose) is a calculated value from HgbA1c and is circulation sales representative of the average blood glucose level in the last 2-3 month period. Performed By: #### 5 5454-3 ####[facility] LABIA [id number] [place] [address] [place] HbA1c (Bld) [Mass fraction] 5.3 % Normal 4.3-5.6 [facility] Comment on above: Order Comment: Vero barton Type: BLOOD SPECIMENOrdering Facility: [facility] Address: [address] [place] [address] Result Comment: Amer [place] Diabetes Association guidelines indicate that patients with HgbA1c in the range 5.7-6.4% are at increased risk for development of diabetes, and intervention by lifestyle modification may be beneficial. HgbA1c greater or equal to 6.5% is considered diagnostic of diabetes. Performed By: #### 5 5454-3 ####[facility] LABIA [id number] [place] [address] [place] TSH SerPl-aCncon 10-10-2023 TSH Qn 2.900 m[IU]/L Normal 0.270-4.200 [facility] Comment on above: Order Comment: Vero men Type: BLOOD SPECIMENOrdering Facility: [facility] Address: [address] [place] [address] Performed By: #### 3 016-3, 2143-6 ####[facility] LABIA [id number] [place] [address] [place] CBC W Auto Differential pane l (Bld)on 09-19-2023 Basophils (Bld) [#/Vol] 0.05 10*3/uL Normal <0.11 [facility] Comment on above: Order Comment: Speci men Type: BLOOD SPECIMENOrdering Facility: [facility] Address: [address] [place] [address] Performed By: #### 5 7021-8 ####[facility] LABCLIA [id number] [place] [address] Basophils/100 WBC (Bld) 0.5 % Normal [facility] Comment on above: Order Comment: Speci men Type: BLOOD SPECIMENOrdering Facility: [facility] Address: [address] [place] [address] Performed By: #### 5 7021-8 ####[facility] LABCLIA [id number] [place] [address] Differential cell count method Nom (Bld) Auto Normal [facility] Comment on above: Order Comment: Speci men Type: BLOOD SPECIMENOrdering Facility: [facility] Address: [address] [place] [address] Performed By: #### 5 7021-8 ####[facility] LABCLIA [id number] [place] [address] Eosinophils (Bld) [#/Vol] 0.15 10*3/uL Normal <0.46 [facility] Comment on above: Order Comment: Speci men Type: BLOOD SPECIMENOrdering Facility: [facility] Address: [address] [place] [address] Performed By: #### 5 7021-8 ####[facility] LABCLIA [id number] [place] [address] Eosinophils/100 WBC (Bld) 1.6 % Normal [facility] Comment on above: Order Comment: Speci men Type: BLOOD SPECIMENOrdering Facility: [facility] Address: [address] [place] [address] Performed By: #### 5 7021-8 ####[facility] LABCLIA [id number] [place] [address] Erythrocyte distribution width (RBC) [Ratio] 14.2 % Normal 11.5-15.0 [facility] Comment on above: Order Comment: Speci men Type: BLOOD SPECIMENOrdering Facility: [facility] Address: [address] [place] [address] Performed By: #### 5 7021-8 ####[facility] LABCLIA [id number] [place] [address] Hematocrit (Bld) [Volume fraction] 38.0 % Low 39.0-51.0 [facility] Comment on above: Order Comment: Speci men Type: BLOOD SPECIMENOrdering Facility: [facility] Address: [address] [place] [address] Performed By: #### 5 7021-8 ####[facility] LABIA [id number] [place] [address] Hemoglobin (Bld) [Mass/Vol] 12.7 g/dL Low 13.0-17.0 [facility] Comment on above: Order Comment: Speci men Type: BLOOD SPECIMENOrdering Facility: [facility] Address: [address] [place] [address] Performed By: #### 5 7021-8 ####[facility] LABIA [id number] [place] [address] Immature granulocytes (Bld) [#/Vol] 0.05 10*3/uL Normal <0.10 [facility] Comment on above: Order Comment: Speci men Type: BLOOD SPECIMENOrdering Facility: [facility] Address: [address] [place] [address] Performed By: #### 5 7021-8 ####[facility] LABIA [id number] [place] [address] Immature granulocytes/100 WBC (Bld) 0.5 % Normal [facility] Comment on above: Order Comment: Speci men Type: BLOOD SPECIMENOrdering Facility: [facility] Address: [address] [place] [address] Performed By: #### 5 7021-8 ####[facility] LABCLIA [id number] [place] [address] Lymphocytes (Bld) [#/Vol] 0.47 10*3/uL Low 1.00-4.00 [facility] Comment on above: Order Comment: Speci men Type: BLOOD SPECIMENOrdering Facility: [facility] Address: [address] [place] [address] Performed By: #### 5 7021-8 ####[facility] LABCLIA [id number] [place] [address] Lymphocytes/100 WBC (Bld) 5.0 % Normal [facility] Comment on above: Order Comment: Speci men Type: BLOOD SPECIMENOrdering Facility: [facility] Address: [address] [place] [address] Performed By: #### 5 7021-8 ####[facility] LABCLIA [id number] [place] [address] MCH (RBC) [Entitic mass] 28.2 pg Normal 26.0-34.0 [facility] Comment on above: Order Comment: Speci men Type: BLOOD SPECIMENOrdering Facility: [facility] Address: [address] [place] [address] Performed By: #### 5 7021-8 ####[facility] LABCLIA [id number] [place] [address] MCHC (RBC) [Mass/Vol] 33.4 g/dL Normal 30.5-36.0 [facility] Comment on above: Order Comment: Speci men Type: BLOOD SPECIMENOrdering Facility: [facility] Address: [address] [place] [address] Performed By: #### 5 7021-8 ####[facility] LABCLIA [id number] [place] [address] MCV (RBC) [Entitic vol] 84.3 fL Normal 80.0-100.0 [facility] Comment on above: Order Comment: Speci men Type: BLOOD SPECIMENOrdering Facility: [facility] Address: [address] [place] [address] Performed By: #### 5 7021-8 ####[facility] LABCLIA [id number] [place] [address] Monocytes (Bld) [#/Vol] 0.58 10*3/uL Normal <0.87 [facility] Comment on above: Order Comment: Speci men Type: BLOOD SPECIMENOrdering Facility: [facility] Address: [address] [place] [address] Performed By: #### 5 7021-8 ####[facility] LABCLIA [id number] [place] [address] Monocytes/100 WBC (Bld) 6.2 % Normal [facility] Comment on above: Order Comment: Speci men Type: BLOOD SPECIMENOrdering Facility: [facility] Address: [address] [place] [address] Performed By: #### 5 7021-8 ####[facility] LABCLIA [id number] [place] [address] Neutrophils (Bld) [#/Vol] 8.05 10*3/uL High 1.45-7.50 [facility] Comment on above: Order Comment: Speci men Type: BLOOD SPECIMENOrdering Facility: [facility] Address: [address] [place] [address] Performed By: #### 5 7021-8 ####[facility] LABCLIA [id number] [place] [address] Neutrophils/100 WBC (Bld) 86.2 % Normal [facility] Comment on above: Order Comment: Speci men Type: BLOOD SPECIMENOrdering Facility: [facility] Address: [address] [place] [address] Performed By: #### 5 7021-8 ####[facility] LABCLIA [id number] [place] [address] Nucleated RBC (Bld) [#/Vol] 10*3/uL Normal <0.01 [facility] Comment on above: Order Comment: Speci men Type: BLOOD SPECIMENOrdering Facility: [facility] Address: [address] [place] [address] Performed By: #### 5 7021-8 ####[facility] LABCLIA [id number] [place] [address] Nucleated RBC/100 WBC (Bld) [Ratio] 0.0 /100 WBC Normal [facility] Comment on above: Order Comment: Speci men Type: BLOOD SPECIMENOrdering Facility: [facility] Address: [address] [place] [address] Performed By: #### 5 7021-8 ####[facility] LABCLIA [id number] [place] [address] Platelet mean volume (Bld) [Entitic vol] 9.4 fL Normal 9.0-12.7 [facility] Comment on above: Order Comment: Speci men Type: BLOOD SPECIMENOrdering Facility: [facility] Address: [address] [place] [address] Performed By: #### 5 7021-8 ####[facility] LABCLIA [id number] [place] [address] Platelets (Bld) [#/Vol] 156 10*3/uL Normal 150-400 [facility] Comment on above: Order Comment: Speci men Type: BLOOD SPECIMENOrdering Facility: [facility] Address: [address] [place] [address] Performed By: #### 5 7021-8 ####[facility] LABCLIA [id number] [place] [address] RBC (Bld) [#/Vol] 4.51 10*6/uL Normal 4.20-6.00 [facility] Comment on above: Order Comment: Speci men Type: BLOOD SPECIMENOrdering Facility: [facility] Address: [address] [place] [address] Performed By: #### 5 7021-8 ####[facility] LABCLIA [id number] [place] [address] WBC (Bld) [#/Vol] 9.35 10*3/uL Normal 3.70-11.00 [facility] Comment on above: Order Comment: Speci men Type: BLOOD SPECIMENOrdering Facility: [facility] Address: [address] [place] [address] Performed By: #### 5 7021-8 ####[facility] LABCLIA [id number] [place] [address] CNOVSPon 09-19-2023 CNOVSP Normal [facility] metabolic 2000 panelon 09-19-2023 Albumin [Mass/Vol] 3.6 g/dL Low 3.9-4.9 [facility] Comment on above: Order Comment: Speci men Type: BLOOD SPECIMENOrdering Facility: [facility] Address: [address] [place] [address] Performed By: #### 2 4323-8 ####[facility] LABCLIA [id number] [place] [address] ALP [Catalytic activity/Vol] 63 U/L Normal 38-113 [facility] Comment on above: Order Comment: Speci men Type: BLOOD SPECIMENOrdering Facility: [facility] Address: [address] [place] [address] Performed By: #### 2 4323-8 ####[facility] LABCLIA [id number] [place] [address] ALT [Catalytic activity/Vol] 18 U/L Normal 10-54 [facility] Comment on above: Order Comment: Speci men Type: BLOOD SPECIMENOrdering Facility: [facility] Address: [address] [place] [address] Performed By: #### 2 4323-8 ####[facility] LABCLIA [id number] [place] [address] Anion gap [Moles/Vol] 8 mmol/L Low 9-18 [facility] Comment on above: Order Comment: Speci men Type: BLOOD SPECIMENOrdering Facility: [facility] Address: [address] [place] [address] Performed By: #### 2 4323-8 ####[facility] LABCLIA [id number] [place] [address] AST [Catalytic activity/Vol] 19 U/L Normal 14-40 [facility] Comment on above: Order Comment: Speci men Type: BLOOD SPECIMENOrdering Facility: [facility] Address: [address] [place] [address] Performed By: #### 2 4323-8 ####[facility] LABCLIA [id number] [place] [address] Bilirubin [Mass/Vol] 0.7 mg/dL Normal 0.2-1.3 [facility] Comment on above: Order Comment: Speci men Type: BLOOD SPECIMENOrdering Facility: [facility] Address: [address] [place] [address] Performed By: #### 2 4323-8 ####[facility] LABCLIA [id number] [place] [address] Calcium [Mass/Vol] 8.7 mg/dL Normal 8.5-10.2 [facility] Comment on above: Order Comment: Speci men Type: BLOOD SPECIMENOrdering Facility: [facility] Address: [address] [place] [address] Performed By: #### 2 4323-8 ####[facility] LABCLIA [id number] [place] [address] Chloride [Moles/Vol] 105 mmol/L Normal 97-105 [facility] Comment on above: Order Comment: Speci men Type: BLOOD SPECIMENOrdering Facility: [facility] Address: [address] [place] [address] Performed By: #### 2 4323-8 ####[facility] LABCLIA [id number] [place] [address] CO2 [Moles/Vol] 28 mmol/L Normal 22-30 [facility] Comment on above: Order Comment: Speci men Type: BLOOD SPECIMENOrdering Facility: [facility] Address: [address] [place] [address] Performed By: #### 2 4323-8 ####[facility] LABCLIA [id number] [place] [address] Creatinine [Mass/Vol] 1.84 mg/dL High 0.73-1.22 [facility] Comment on above: Order Comment: Speci men Type: BLOOD SPECIMENOrdering Facility: [facility] Address: [address] [place] [address] Performed By: #### 2 4323-8 ####[facility] LABCLIA [id number] [place] [address] Creatinine and Glomerular filtration rate.predicted panel (S/P/Bld) 36 mL/min/1.73m??? Low >=60 [facility] Comment on above: Order Comment: Speci men Type: BLOOD SPECIMENOrdering Facility: [facility] Address: [address] [place] [address] Result Comment: Viviana mated Glomerular Filtration Rate [...] actual GFR. Performed By: #### 2 4323-8 ####[facility] LABCLIA [id number] [place] [address] Glucose [Mass/Vol] 106 mg/dL High 74-99 [facility] Comment on above: Order Comment: Speci men Type: BLOOD SPECIMENOrdering Facility: [facility] Address: [address] [place] [address] Result Comment: The [place] Diabetes Association (ADA) provides guidance for cutoff [...] Standards of Medical Care in Diabetes 2016, [place] Diabetes Association. Diabetes Care. 2016.39(Suppl 1). Performed By: #### 2 4323-8 ####[facility] LABCLIA [id number] [place] [address] Potassium [Moles/Vol] 3.7 mmol/L Normal 3.7-5.1 [facility] Comment on above: Order Comment: Speci men Type: BLOOD SPECIMENOrdering Facility: [facility] Address: [address] [place] [address] Performed By: #### 2 4323-8 ####[facility] LABIA [id number] [place] [address] Protein [Mass/Vol] 5.4 g/dL Low 6.3-8.0 [facility] Comment on above: Order Comment: Speci men Type: BLOOD SPECIMENOrdering Facility: [facility] Address: [address] [place] [address] Performed By: #### 2 4323-8 ####[facility] LABCLIA [id number] [place] [address] Sodium [Moles/Vol] 141 mmol/L Normal 136-144 [facility] Comment on above: Order Comment: Speci men Type: BLOOD SPECIMENOrdering Facility: [facility] Address: [address] [place] [address] Performed By: #### 2 4323-8 ####[facility] LABCLIA [id number] [place] [address] Urea nitrogen [Mass/Vol] 38 mg/dL High 9- [facility] Comment on above: Order Comment: Speci men Type: BLOOD SPECIMENOrdering Facility: [facility] Address: [address] [place] [address] Performed By: #### 2 4323-8 ####[facility] LABCLIA [id number] [place] [address] Beverly Valdes-Hannykimberlyon 09-19-20 23 Cortisol [Mass/Vol] 9.8 ug/dL Normal 4.8-19.5 [facility] Comment on above: Order Comment: Speci men Type: BLOOD SPECIMENOrdering Facility: [facility] Address: [address] [place] [address] Result Comment: Prov ided reference range is from 6-10 AM sample collection time.Cortisol Reference Range: 6-10 AM = 4.8-19.5 ug/dL, 4-8 PM = 2.5-11.9 ug/dL Performed By: #### 3 016-3, 2143-6 ####[facility] LABCLIA [id number] [place] [address] [place] HbA1c (Bld)on 09-19-2023 Average glucose Estimated from glycated hemoglobin (Bld) [Mass/Vol] 108 mg/dL Normal [facility] Comment on above: Order Comment: Speci men Type: BLOOD SPECIMENOrdering Facility: [facility] Address: [address] [place] [address] Result Comment: eAG: (Estimated average glucose) is a calculated value from HgbA1c and is circulation sales representative of the average blood glucose level in the last 2-3 month period. Performed By: #### 5 5454-3 ####[facility] LABCLIA [id number] [place] [address] [place] HbA1c (Bld) [Mass fraction] 5.4 % Normal 4.3-5.6 [facility] Comment on above: Order Comment: Speci men Type: BLOOD SPECIMENOrdering Facility: [facility] Address: [address] [place] [address] Result Comment: Amer [place] Diabetes Association guidelines indicate that patients with HgbA1c in the range 5.7-6.4% are at increased risk for development of diabetes, and intervention by lifestyle modification may be beneficial. HgbA1c greater or equal to 6.5% is considered diagnostic of diabetes. Performed By: #### 5 5454-3 ####[facility] LABCLIA [id number] [place] [address] [place] TSH SerPl-aCncon 09-19-2023 TSH Qn 2.080 m[IU]/L Normal 0.270-4.200 [facility] Comment on above: Order Comment: Speci men Type: BLOOD SPECIMENOrdering Facility: [facility] Address: [address] [place] [address] Performed By: #### 3 016-3, 2143-6 ####[facility] LABCLIA [id number] [place] [address] [place] CBC W Auto Differential pane l (Bld)on 08-29-2023 Basophils (Bld) [#/Vol] 0.06 10*3/uL Normal <0.11 [facility] Comment on above: Order Comment: Speci men Type: BLOOD SPECIMENOrdering Facility: [facility] Address: [address] [place] [address] Performed By: #### 5 7021-8 ####[facility] LABCLIA [id number] [place] [address] Basophils/100 WBC (Bld) 0.9 % Normal [facility] Comment on above: Order Comment: Speci men Type: BLOOD SPECIMENOrdering Facility: [facility] Address: [address] [place] [address] Performed By: #### 5 7021-8 ####[facility] LABCLIA [id number] [place] [address] Differential cell count method Nom (Bld) Auto Normal [facility] Comment on above: Order Comment: Speci men Type: BLOOD SPECIMENOrdering Facility: [facility] Address: [address] [place] [address] Performed By: #### 5 7021-8 ####[facility] LABCLIA [id number] [place] [address] Eosinophils (Bld) [#/Vol] 0.25 10*3/uL Normal <0.46 [facility] Comment on above: Order Comment: Speci men Type: BLOOD SPECIMENOrdering Facility: [facility] Address: [address] [place] [address] Performed By: #### 5 7021-8 ####[facility] LABCLIA [id number] [place] [address] Eosinophils/100 WBC (Bld) 3.7 % Normal [facility] Comment on above: Order Comment: Speci men Type: BLOOD SPECIMENOrdering Facility: [facility] Address: [address] [place] [address] Performed By: #### 5 7021-8 ####[facility] LABCLIA [id number] [place] [address] Erythrocyte distribution width (RBC) [Ratio] 13.8 % Normal 11.5-15.0 [facility] Comment on above: Order Comment: Speci men Type: BLOOD SPECIMENOrdering Facility: [facility] Address: [address] [place] [address] Performed By: #### 5 7021-8 ####[facility] LABCLIA [id number] [place] [address] Hematocrit (Bld) [Volume fraction] 40.9 % Normal 39.0-51.0 [facility] Comment on above: Order Comment: Speci men Type: BLOOD SPECIMENOrdering Facility: [facility] Address: [address] [place] [address] Performed By: #### 5 7021-8 ####[facility] LABCLIA [id number] [place] [address] Hemoglobin (Bld) [Mass/Vol] 13.6 g/dL Normal 13.0-17.0 [facility] Comment on above: Order Comment: Speci men Type: BLOOD SPECIMENOrdering Facility: [facility] Address: [address] [place] [address] Performed By: #### 5 7021-8 ####[facility]CLIA [id number] [place] [address] Immature granulocytes (Bld) [#/Vol] 10*3/uL Normal <0.10 [facility] Comment on above: Order Comment: Speci men Type: BLOOD SPECIMENOrdering Facility: [facility] Address: [address] [place] [address] Performed By: #### 5 7021-8 ####[facility]CLIA [id number] [place] [address] Immature granulocytes/100 WBC (Bld) 0.3 % Normal [facility] Comment on above: Order Comment: Speci men Type: BLOOD SPECIMENOrdering Facility: [facility] Address: [address] [place] [address] Performed By: #### 5 7021-8 ####[facility]CLIA [id number] [place] [address] Lymphocytes (Bld) [#/Vol] 0.73 10*3/uL Low 1.00-4.00 [facility] Comment on above: Order Comment: Speci men Type: BLOOD SPECIMENOrdering Facility: [facility] Address: [address] [place] [address] Performed By: #### 5 7021-8 ####[facility]CL[facility] [id number] [place] [address] Lymphocytes/100 WBC (Bld) 10.9 % Normal [facility] Comment on above: Order Comment: Speci men Type: BLOOD SPECIMENOrdering Facility: [facility] Address: [address] [place] [address] Performed By: #### 5 7021-8 ####[facility]CLIA [id number] [place] [address] MCH (RBC) [Entitic mass] 28.0 pg Normal 26.0-34.0 [facility] Comment on above: Order Comment: Speci men Type: BLOOD SPECIMENOrdering Facility: [facility] Address: [address] [place] [address] Performed By: #### 5 7021-8 ####[facility]CLIA [id number] [place] [address] MCHC (RBC) [Mass/Vol] 33.3 g/dL Normal 30.5-36.0 [facility] Comment on above: Order Comment: Speci men Type: BLOOD SPECIMENOrdering Facility: [facility] Address: [address] [place] [address] Performed By: #### 5 7021-8 ####[facility] LABCLIA [id number] [place] [address] MCV (RBC) [Entitic vol] 84.2 fL Normal 80.0-100.0 [facility] Comment on above: Order Comment: Speci men Type: BLOOD SPECIMENOrdering Facility: [facility] Address: [address] [place] [address] Performed By: #### 5 7021-8 ####[facility]CLIA [id number] [place] [address] Monocytes (Bld) [#/Vol] 0.36 10*3/uL Normal <0.87 [facility] Comment on above: Order Comment: Speci men Type: BLOOD SPECIMENOrdering Facility: [facility] Address: [address] [place] [address] Performed By: #### 5 7021-8 ####[facility]CLIA [id number] [place] [address] Monocytes/100 WBC (Bld) 5.4 % Normal [facility] Comment on above: Order Comment: Speci men Type: BLOOD SPECIMENOrdering Facility: [facility] Address: [address] [place] [address] Performed By: #### 5 7021-8 ####[facility]CLIA [id number] [place] [address] Neutrophils (Bld) [#/Vol] 5.28 10*3/uL Normal 1.45-7.50 [facility] Comment on above: Order Comment: Speci men Type: BLOOD SPECIMENOrdering Facility: [facility] Address: [address] [place] [address] Performed By: #### 5 7021-8 ####[facility]CLIA [id number] [place] [address] Neutrophils/100 WBC (Bld) 78.8 % Normal [facility] Comment on above: Order Comment: Speci men Type: BLOOD SPECIMENOrdering Facility: [facility] Address: [address] [place] [address] Performed By: #### 5 7021-8 ####[facility] LABCLIA [id number] [place] [address] Nucleated RBC (Bld) [#/Vol] 10*3/uL Normal <0.01 [facility] Comment on above: Order Comment: Speci men Type: BLOOD SPECIMENOrdering Facility: [facility] Address: [address] [place] [address] Performed By: #### 5 7021-8 ####[facility] LABCLIA [id number] [place] [address] Nucleated RBC/100 WBC (Bld) [Ratio] 0.0 /100 WBC Normal [facility] Comment on above: Order Comment: Speci men Type: BLOOD SPECIMENOrdering Facility: [facility] Address: [address] [place] [address] Performed By: #### 5 7021-8 ####[facility]CLIA [id number] [place] [address] Platelet mean volume (Bld) [Entitic vol] 9.1 fL Normal 9.0-12.7 [facility] Comment on above: Order Comment: Speci men Type: BLOOD SPECIMENOrdering Facility: [facility] Address: [address] [place] [address] Performed By: #### 5 7021-8 ####[facility] LABCLIA [id number] [place] [address] Platelets (Bld) [#/Vol] 224 10*3/uL Normal 150-400 [facility] Comment on above: Order Comment: Speci men Type: BLOOD SPECIMENOrdering Facility: [facility] Address: [address] [place] [address] Performed By: #### 5 7021-8 ####[facility]CLIA [id number] [place] [address] RBC (Bld) [#/Vol] 4.86 10*6/uL Normal 4.20-6.00 [facility] Comment on above: Order Comment: Speci men Type: BLOOD SPECIMENOrdering Facility: [facility] Address: [address] [place] [address] Performed By: #### 5 7021-8 ####[facility] LABCLIA [id number] [place] [address] WBC (Bld) [#/Vol] 6.70 10*3/uL Normal 3.70-11.00 [facility] Comment on above: Order Comment: Speci men Type: BLOOD SPECIMENOrdering Facility: [facility] Address: [address] [place] [address] Performed By: #### 5 7021-8 ####[facility] LABIA [id number] [place] [address] CNOVSPon 08-29-2023 CNOVSP Normal [facility] metabolic 2000 panelon 08-29-2023 Albumin [Mass/Vol] 4.2 g/dL Normal 3.9-4.9 [facility] Comment on above: Order Comment: Speci men Type: BLOOD SPECIMENOrdering Facility: [facility] Address: [address] [place] [address] Performed By: #### 2 4323-8 ####[facility] LABCLIA [id number] [place] [address] ALP [Catalytic activity/Vol] 79 U/L Normal 38-113 [facility] Comment on above: Order Comment: Speci men Type: BLOOD SPECIMENOrdering Facility: [facility] Address: [address] [place] [address] Performed By: #### 2 4323-8 ####[facility] LABCLIA [id number] [place] [address] ALT [Catalytic activity/Vol] 17 U/L Normal 10-54 [facility] Comment on above: Order Comment: Speci men Type: BLOOD SPECIMENOrdering Facility: [facility] Address: [address] [place] [address] Performed By: #### 2 4323-8 ####[facility] LABCLIA [id number] [place] [address] Anion gap [Moles/Vol] 7 mmol/L Low 9-18 [facility] Comment on above: Order Comment: Speci men Type: BLOOD SPECIMENOrdering Facility: [facility] Address: [address] [place] [address] Performed By: #### 2 4323-8 ####[facility] LABCLIA [id number] [place] [address] AST [Catalytic activity/Vol] 28 U/L Normal 14-40 [facility] Comment on above: Order Comment: Speci men Type: BLOOD SPECIMENOrdering Facility: [facility] Address: [address] [place] [address] Performed By: #### 2 4323-8 ####[facility] LABCLIA [id number] [place] [address] Bilirubin [Mass/Vol] 0.8 mg/dL Normal 0.2-1.3 [facility] Comment on above: Order Comment: Speci men Type: BLOOD SPECIMENOrdering Facility: [facility] Address: [address] [place] [address] Performed By: #### 2 4323-8 ####[facility] LABCLIA [id number] [place] [address] Calcium [Mass/Vol] 9.6 mg/dL Normal 8.5-10.2 [facility] Comment on above: Order Comment: Speci men Type: BLOOD SPECIMENOrdering Facility: [facility] Address: [address] [place] [address] Performed By: #### 2 4323-8 ####[facility] LABCLIA [id number] [place] [address] Chloride [Moles/Vol] 102 mmol/L Normal 97-105 [facility] Comment on above: Order Comment: Speci men Type: BLOOD SPECIMENOrdering Facility: [facility] Address: [address] [place] [address] Performed By: #### 2 4323-8 ####[facility] LABCLIA [id number] [place] [address] CO2 [Moles/Vol] 28 mmol/L Normal 22-30 [facility] Comment on above: Order Comment: Speci men Type: BLOOD SPECIMENOrdering Facility: [facility] Address: [address] [place] [address] Performed By: #### 2 4323-8 ####[facility] LABCLIA [id number] [place] [address] Creatinine [Mass/Vol] 2.02 mg/dL High 0.73-1.22 [facility] Comment on above: Order Comment: Speci men Type: BLOOD SPECIMENOrdering Facility: [facility] Address: [address] [place] [address] Performed By: #### 2 4323-8 ####[facility] LABCLIA [id number] [place] [address] Creatinine and Glomerular filtration rate.predicted panel (S/P/Bld) 32 mL/min/1.73m??? Low >=60 [facility] Comment on above: Order Comment: Speci men Type: BLOOD SPECIMENOrdering Facility: [facility] Address: [address] [place] [address] Result Comment: Viviana mated Glomerular Filtration Rate [...] actual GFR. Performed By: #### 2 4323-8 ####[facility] LABIA [id number] [place] [address] Glucose [Mass/Vol] 116 mg/dL High 74-99 [facility] Comment on above: Order Comment: Speci oralia Type: BLOOD SPECIMENOrdering Facility: [facility] Address: [address] [place] [address] Result Comment: The [place] Diabetes Association (ADA) provides guidance for cutoff [...] Standards of Medical Care in Diabetes 2016, [place] Diabetes Association. Diabetes Care. 2016.39(Suppl 1). Performed By: #### 2 4323-8 ####[facility] LABCLIA [id number] [place] [address] Potassium [Moles/Vol] 4.1 mmol/L Normal 3.7-5.1 [facility] Comment on above: Order Comment: Speci men Type: BLOOD SPECIMENOrdering Facility: [facility] Address: [address] [place] [address] Performed By: #### 2 4323-8 ####[facility] LABCLIA [id number] [place] [address] Protein [Mass/Vol] 6.1 g/dL Low 6.3-8.0 [facility] Comment on above: Order Comment: Speci men Type: BLOOD SPECIMENOrdering Facility: [facility] Address: [address] [place] [address] Performed By: #### 2 4323-8 ####[facility] LABCLIA [id number] [place] [address] Sodium [Moles/Vol] 137 mmol/L Normal 136-144 [facility] Comment on above: Order Comment: Speci men Type: BLOOD SPECIMENOrdering Facility: [facility] Address: [address] [place] [address] Performed By: #### 2 4323-8 ####[facility] LABCLIA [id number] [place] [address] Urea nitrogen [Mass/Vol] 23 mg/dL Normal 9-24 [facility] Comment on above: Order Comment: Speci men Type: BLOOD SPECIMENOrdering Facility: [facility] Address: [address] [place] [address] Performed By: #### 2 4323-8 ####[facility] LABIA [id number] [place] [address] Cortis SerPl-Ricaon 08-29-20 23 Cortisol [Mass/Vol] 7.9 ug/dL Normal 4.8-19.5 [facility] Comment on above: Order Comment: Speci men Type: BLOOD SPECIMENOrdering Facility: [facility] Address: [address] [place] [address] Result Comment: Prov ided reference range is from 6-10 AM sample collection time.Cortisol Reference Range: 6-10 AM = 4.8-19.5 ug/dL, 4-8 PM = 2.5-11.9 ug/dL Performed By: #### 3 016-3, 2143-6 ####[facility] LABCLIA [id number] [place] [address] [place] HbA1c (Bld)on 08-29-2023 Average glucose Estimated from glycated hemoglobin (Bld) [Mass/Vol] 100 mg/dL Normal [facility] Comment on above: Order Comment: Vero barton Type: BLOOD SPECIMENOrdering Facility: [facility] Address: [address] [place] [address] Result Comment: eAG: (Estimated average glucose) is a calculated value from HgbA1c and is circulation sales representative of the average blood glucose level in the last 2-3 month period. Performed By: #### 5 5454-3 ####[facility] LABIA [id number] [address] STATES OF [facility] HbA1c (Bld) [Mass fraction] 5.1 % Normal 4.3-5.6 [facility] Comment on above: Order Comment: Vero barton Type: BLOOD SPECIMENOrdering Facility: [facility] Address: [address] [place] [address] Result Comment: [place] Diabetes Association guidelines indicate that patients with HgbA1c in the range 5.7-6.4% are at increased risk for development of diabetes, and intervention by lifestyle modification may be beneficial. HgbA1c greater or equal to 6.5% is considered diagnostic of diabetes. Performed By: #### 5 5454-3 ####[facility] LABIA [id number] [place] [address] [place] TSH SerPl-aCncon 08-29-2023 TSH Qn 3.500 m[IU]/L Normal 0.270-4.200 [facility] Comment on above: Order Comment: Vero barton Type: BLOOD SPECIMENOrdering Facility: [facility] Address: [address] [place] [address] Performed By: #### 3 016-3, 2143-6 ####[facility] LABCLIA [id number] MALLORYMarisabel [facility] [place] [address] [place] CT ABD/PEL W IVCONon 023 CT ABD/PEL W IVCON Normal [facility] CT CHEST W IVCONon 3 CT CHEST W IVCON Normal [facility] Office Visiton 08-20-2023 Follow-up visit [id number] Juan Jose Austin 1940 M Date Provider Department Center 08/20/2023 JIMBO ROBERTSON [facility] Family History Problem Relation Age of Onset Heart failure Mother Family Status - Relation Status Age at Mother Level of Service:[address] [place] PHYS/QHP TELEPHONE EVALUATION 11-20 MIN Normal [facility] CBC W Auto Differential pane l (Bld)on 08-08-2023 Basophils (Bld) [#/Vol] 0.05 10*3/uL Normal <0.11 [facility] Comment on above: Order Comment: Speci men Type: BLOOD SPECIMENOrdering Facility: [facility] Address: [address] [place] [address] Performed By: #### 5 7021-8 ####[facility] LABCLIA [id number] [place] [address] Basophils/100 WBC (Bld) 0.8 % Normal [facility] Comment on above: Order Comment: Speci men Type: BLOOD SPECIMENOrdering Facility: [facility] Address: [address] [place] [address] Performed By: #### 5 7021-8 ####[facility] LABCLIA [id number] [place] [address] Differential cell count method Nom (Bld) Auto Normal [facility] Comment on above: Order Comment: Speci men Type: BLOOD SPECIMENOrdering Facility: [facility] Address: [address] [place] [address] Performed By: #### 5 7021-8 ####[facility] LABCLIA [id number] [place] [address] Eosinophils (Bld) [#/Vol] 0.23 10*3/uL Normal <0.46 [facility] Comment on above: Order Comment: Speci men Type: BLOOD SPECIMENOrdering Facility: [facility] Address: [address] [place] [address] Performed By: #### 5 7021-8 ####[facility] LABCLIA [id number] [place] [address] Eosinophils/100 WBC (Bld) 3.6 % Normal [facility] Comment on above: Order Comment: Speci men Type: BLOOD SPECIMENOrdering Facility: [facility] Address: [address] [place] [address] Performed By: #### 5 7021-8 ####[facility] LABCLIA [id number] [place] [address] Erythrocyte distribution width (RBC) [Ratio] 14.0 % Normal 11.5-15.0 [facility] Comment on above: Order Comment: Speci men Type: BLOOD SPECIMENOrdering Facility: [facility] Address: [address] [place] [address] Performed By: #### 5 7021-8 ####[facility] LABCLIA [id number] [place] [address] Hematocrit (Bld) [Volume fraction] 39.4 % Normal 39.0-51.0 [facility] Comment on above: Order Comment: Speci men Type: BLOOD SPECIMENOrdering Facility: [facility] Address: [address] [place] [address] Performed By: #### 5 7021-8 ####[facility] LABCLIA [id number] [place] [address] Hemoglobin (Bld) [Mass/Vol] 13.4 g/dL Normal 13.0-17.0 [facility] Comment on above: Order Comment: Speci men Type: BLOOD SPECIMENOrdering Facility: [facility] Address: [address] [place] [address] Performed By: #### 5 7021-8 ####[facility] LABCLIA [id number] [place] [address] Immature granulocytes (Bld) [#/Vol] 10*3/uL Normal <0.10 [facility] Comment on above: Order Comment: Speci men Type: BLOOD SPECIMENOrdering Facility: [facility] Address: [address] [place] [address] Performed By: #### 5 7021-8 ####[facility] LABCLIA [id number] [place] [address] Immature granulocytes/100 WBC (Bld) 0.3 % Normal [facility] Comment on above: Order Comment: Speci men Type: BLOOD SPECIMENOrdering Facility: [facility] Address: [address] [place] [address] Performed By: #### 5 7021-8 ####[facility] LABCLIA [id number] [place] [address] Lymphocytes (Bld) [#/Vol] 0.73 10*3/uL Low 1.00-4.00 [facility] Comment on above: Order Comment: Speci men Type: BLOOD SPECIMENOrdering Facility: [facility] Address: [address] [place] [address] Performed By: #### 5 7021-8 ####[facility] LABCLIA [id number] [place] [address] Lymphocytes/100 WBC (Bld) 11.5 % Normal [facility] Comment on above: Order Comment: Speci men Type: BLOOD SPECIMENOrdering Facility: [facility] Address: [address] [place] [address] Performed By: #### 5 7021-8 ####[facility] LABCLIA [id number] [place] [address] MCH (RBC) [Entitic mass] 28.5 pg Normal 26.0-34.0 [facility] Comment on above: Order Comment: Speci men Type: BLOOD SPECIMENOrdering Facility: [facility] Address: [address] [place] [address] Performed By: #### 5 7021-8 ####[facility] LABCLIA [id number] [place] [address] MCHC (RBC) [Mass/Vol] 34.0 g/dL Normal 30.5-36.0 [facility] Comment on above: Order Comment: Speci men Type: BLOOD SPECIMENOrdering Facility: [facility] Address: [address] [place] [address] Performed By: #### 5 7021-8 ####[facility] LABIA [id number] [place] [address] MCV (RBC) [Entitic vol] 83.7 fL Normal 80.0-100.0 [facility] Comment on above: Order Comment: Speci men Type: BLOOD SPECIMENOrdering Facility: [facility] Address: [address] [place] [address] Performed By: #### 5 7021-8 ####[facility] LABIA [id number] [place] [address] Monocytes (Bld) [#/Vol] 0.63 10*3/uL Normal <0.87 [facility] Comment on above: Order Comment: Speci men Type: BLOOD SPECIMENOrdering Facility: [facility] Address: [address] [place] [address] Performed By: #### 5 7021-8 ####[facility] LABIA [id number] [place] [address] Monocytes/100 WBC (Bld) 9.9 % Normal [facility] Comment on above: Order Comment: Speci men Type: BLOOD SPECIMENOrdering Facility: [facility] Address: [address] [place] [address] Performed By: #### 5 7021-8 ####[facility] LABCLIA [id number] [place] [address] Neutrophils (Bld) [#/Vol] 4.68 10*3/uL Normal 1.45-7.50 [facility] Comment on above: Order Comment: Speci men Type: BLOOD SPECIMENOrdering Facility: [facility] Address: [address] [place] [address] Performed By: #### 5 7021-8 ####[facility] LABCLIA [id number] [place] [address] Neutrophils/100 WBC (Bld) 73.9 % Normal [facility] Comment on above: Order Comment: Speci men Type: BLOOD SPECIMENOrdering Facility: [facility] Address: [address] [place] [address] Performed By: #### 5 7021-8 ####[facility] LABCLIA [id number] [place] [address] Nucleated RBC (Bld) [#/Vol] 10*3/uL Normal <0.01 [facility] Comment on above: Order Comment: Speci men Type: BLOOD SPECIMENOrdering Facility: [facility] Address: [address] [place] [address] Performed By: #### 5 7021-8 ####[facility] LABCLIA [id number] [place] [address] Nucleated RBC/100 WBC (Bld) [Ratio] 0.0 /100 WBC Normal [facility] Comment on above: Order Comment: Speci men Type: BLOOD SPECIMENOrdering Facility: [facility] Address: [address] [place] [address] Performed By: #### 5 7021-8 ####[facility] LABIA [id number] [place] [address] Platelet mean volume (Bld) [Entitic vol] 9.3 fL Normal 9.0-12.7 [facility] Comment on above: Order Comment: Speci men Type: BLOOD SPECIMENOrdering Facility: [facility] Address: [address] [place] [address] Performed By: #### 5 7021-8 ####[facility] LABCLIA [id number] [place] [address] Platelets (Bld) [#/Vol] 200 10*3/uL Normal 150-400 [facility] Comment on above: Order Comment: Speci men Type: BLOOD SPECIMENOrdering Facility: [facility] Address: [address] [place] [address] Performed By: #### 5 7021-8 ####[facility] LABCLIA [id number] [place] [address] RBC (Bld) [#/Vol] 4.71 10*6/uL Normal 4.20-6.00 [facility] Comment on above: Order Comment: Speci men Type: BLOOD SPECIMENOrdering Facility: [facility] Address: [address] [place] [address] Performed By: #### 5 7021-8 ####[facility] LABCLIA [id number] [place] [address] WBC (Bld) [#/Vol] 6.34 10*3/uL Normal 3.70-11.00 [facility] Comment on above: Order Comment: Speci men Type: BLOOD SPECIMENOrdering Facility: [facility] Address: [address] [place] [address] Performed By: #### 5 7021-8 ####[facility] LABCLIA [id number] [place] [address] CNPNon 08-08-2023 CNPN Normal [facility] Comprehensive metabolic 2000 panelon 08-08-2023 Albumin [Mass/Vol] 4.0 g/dL Normal 3.9-4.9 [facility] Comment on above: Order Comment: Speci men Type: BLOOD SPECIMENOrdering Facility: [facility] Address: [address] [place] [address] Performed By: #### 2 4323-8 ####[facility] LABCLIA [id number] [place] [address] ALP [Catalytic activity/Vol] 83 U/L Normal 38-113 [facility] Comment on above: Order Comment: Speci men Type: BLOOD SPECIMENOrdering Facility: [facility] Address: [address] [place] [address] Performed By: #### 2 4323-8 ####[facility] LABCLIA [id number] [place] [address] ALT [Catalytic activity/Vol] 14 U/L Normal 10-54 [facility] Comment on above: Order Comment: Speci men Type: BLOOD SPECIMENOrdering Facility: [facility] Address: [address] [place] [address] Performed By: #### 2 4323-8 ####[facility] LABCLIA [id number] [place] [address] Anion gap [Moles/Vol] 6 mmol/L Low 9-18 [facility] [facility] Comment on above: Order Comment: Speci men Type: BLOOD SPECIMENOrdering Facility: [facility] Address: [address] [place] [address] Performed By: #### 2 4323-8 ####[facility] LABCLIA [id number] [place] [address] AST [Catalytic activity/Vol] 21 U/L Normal 14-40 [facility] Comment on above: Order Comment: Speci men Type: BLOOD SPECIMENOrdering Facility: [facility] Address: [address] [place] [address] Performed By: #### 2 4323-8 ####[facility] LABCLIA [id number] [place] [address] Bilirubin [Mass/Vol] 0.7 mg/dL Normal 0.2-1.3 [facility] Comment on above: Order Comment: Speci men Type: BLOOD SPECIMENOrdering Facility: [facility] Address: [address] [place] [address] Performed By: #### 2 4323-8 ####[facility] LABCLIA [id number] [place] [address] Calcium [Mass/Vol] 8.7 mg/dL Normal 8.5-10.2 [facility] Comment on above: Order Comment: Speci men Type: BLOOD SPECIMENOrdering Facility: [facility] Address: [address] [place] [address] Performed By: #### 2 4323-8 ####[facility] LABCLIA [id number] [place] [address] Chloride [Moles/Vol] 106 mmol/L High 97-105 [facility] Comment on above: Order Comment: Speci men Type: BLOOD SPECIMENOrdering Facility: [facility] Address: [address] [place] [address] Performed By: #### 2 4323-8 ####[facility] LABCLIA [id number] [place] [address] CO2 [Moles/Vol] 25 mmol/L Normal 22-30 [facility] Comment on above: Order Comment: Speci men Type: BLOOD SPECIMENOrdering Facility: [facility] Address: [address] [place] [address] Performed By: #### 2 4323-8 ####[facility] LABCLIA [id number] [place] [address] Creatinine [Mass/Vol] 1.97 mg/dL High 0.73-1.22 [facility] Comment on above: Order Comment: Speci men Type: BLOOD SPECIMENOrdering Facility: [facility] Address: [address] [place] [address] Performed By: #### 2 4323-8 ####[facility] LABCLIA [id number] [place] [address] Creatinine and Glomerular filtration rate.predicted panel (S/P/Bld) 33 mL/min/1.73m??? Low >=60 [facility] Comment on above: Order Comment: Vero barton Type: BLOOD SPECIMENOrdering Facility: [facility] Address: [place] [address] Result Comment: Viviana mated Glomerular Filtration Rate [...] actual GFR. Performed By: #### 2 4323-8 ####[facility] LABCLIA [id number] [place] [address] Glucose [Mass/Vol] 105 mg/dL High 74-99 [facility] Comment on above: Order Comment: Vero barton Type: BLOOD SPECIMENOrdering Facility: [facility] Address: [place] [address] Result Comment: The [place] Diabetes Association (ADA) provides guidance for cutoff [...] Standards of Medical Care in Diabetes 2016, [place] Diabetes Association. Diabetes Care. 2016.39(Suppl 1). Performed By: #### 2 4323-8 ####[facility] LABCLIA [id number] [place] [address] Potassium [Moles/Vol] 4.1 mmol/L Normal 3.7-5.1 [facility] Comment on above: Order Comment: Vero barton Type: BLOOD SPECIMENOrdering Facility: [facility] Address: [place] [address] Performed By: #### 2 4323-8 ####[facility] LABCLIA [id number] [place] [address] Protein [Mass/Vol] 6.0 g/dL Low 6.3-8.0 [facility] Comment on above: Order Comment: Speci men Type: BLOOD SPECIMENOrdering Facility: [facility] Address: [address] [place] [address] Performed By: #### 2 4323-8 ####[facility] LABCLIA [id number] [place] [address] Sodium [Moles/Vol] 137 mmol/L Normal 136-144 [facility] Comment on above: Order Comment: Speci men Type: BLOOD SPECIMENOrdering Facility: [facility] Address: [address] [place] [address] Performed By: #### 2 4323-8 ####[facility] LABCLIA [id number] [place] [address] Urea nitrogen [Mass/Vol] 23 mg/dL Normal 9-24 [facility] Comment on above: Order Comment: Speci men Type: BLOOD SPECIMENOrdering Facility: [facility] Address: [address] [place] [address] Performed By: #### 2 4323-8 ####[facility] LABCLIA [id number] [place] [address] Cortshaye Koehler 08-08-20 23 Cortisol [Mass/Vol] 11.0 ug/dL Normal 4.8-19.5 [facility] Comment on above: Order Comment: Speci men Type: BLOOD SPECIMENOrdering Facility: [facility] Address: [address] [place] [address] Result Comment: Prov ided reference range is from 6-10 AM sample collection time.Cortisol Reference Range: 6-10 AM = 4.8-19.5 ug/dL, 4-8 PM = 2.5-11.9 ug/dL Performed By: #### 3 016-3, 2143-03 ####[facility] LABCLIA [id number] [address] [place] HbA1c (Bld)on 08-08-2023 Average glucose Estimated from glycated hemoglobin (Bld) [Mass/Vol] 97 mg/dL Normal [facility] Comment on above: Order Comment: Speci men Type: BLOOD SPECIMENOrdering Facility: [facility] Address: [address] [place] [address] Result Comment: eAG: (Estimated average glucose) is a calculated value from HgbA1c and is circulation sales representative of the average blood glucose level in the last 2-3 month period. Performed By: #### 5 5454-3 ####[facility] LABIA [id number] [address] HbA1c (Bld) [Mass fraction] 5.0 % Normal 4.3-5.6 [facility] Comment on above: Order Comment: Vero barton Type: BLOOD SPECIMENOrdering Facility: [facility] Address: [address] [place] [address] Result Comment: Amer [place] Diabetes Association guidelines indicate that patients with HgbA1c in the range 5.7-6.4% are at increased risk for development of diabetes, and intervention by lifestyle modification may be beneficial. HgbA1c greater or equal to 6.5% is considered diagnostic of diabetes. Performed By: #### 5 5454-3 ####[facility] LABIA [id number] [address] [place] TSH SerPl-aCncon 08-08-2023 TSH Qn 1.510 m[IU]/L Normal 0.270-4.200 [facility] Comment on above: Order Comment: Vero [facility] Type: BLOOD SPECIMENOrdering Facility: [facility] Address: [address] [place] [address] Performed By: #### 3 016-3, 2143-03 ####[facility] LABIA [id number] [place] [address] [place] CBC W Auto Differential pane l (Bld)on 07-18-2023 Basophils (Bld) [#/Vol] 0.07 10*3/uL Normal <0.11 [facility] Comment on above: Order Comment: Speci men Type: BLOOD SPECIMENOrdering Facility: [facility] Address: [address] [place] [address] Performed By: #### 5 7021-8 ####[facility] LABCLIA [id number] [place] [address] Basophils/100 WBC (Bld) 1.0 % Normal [facility] Comment on above: Order Comment: Speci men Type: BLOOD SPECIMENOrdering Facility: [facility] Address: [address] [place] [address] Performed By: #### 5 7021-8 ####[facility] LABCLIA [id number] [place] [address] Differential cell count method Nom (Bld) Auto Normal [facility] Comment on above: Order Comment: Speci men Type: BLOOD SPECIMENOrdering Facility: [facility] Address: [address] [place] [address] Performed By: #### 5 7021-8 ####[facility] LABCLIA [id number] [place] [address] Eosinophils (Bld) [#/Vol] 0.23 10*3/uL Normal <0.46 [facility] Comment on above: Order Comment: Speci men Type: BLOOD SPECIMENOrdering Facility: [facility] Address: [address] [place] [address] Performed By: #### 5 7021-8 ####[facility] LABCLIA [id number] [place] [address] Eosinophils/100 WBC (Bld) 3.1 % Normal [facility] Comment on above: Order Comment: Speci men Type: BLOOD SPECIMENOrdering Facility: [facility] Address: [address] [place] [address] Performed By: #### 5 7021-8 ####[facility] LABCLIA [id number] [place] [address] Erythrocyte distribution width (RBC) [Ratio] 13.9 % Normal 11.5-15.0 [facility] Comment on above: Order Comment: Speci men Type: BLOOD SPECIMENOrdering Facility: [facility] Address: [address] [place] [address] Performed By: #### 5 7021-8 ####[facility] LABCLIA [id number] [place] [address] Hematocrit (Bld) [Volume fraction] 40.2 % Normal 39.0-51.0 [facility] Comment on above: Order Comment: Speci men Type: BLOOD SPECIMENOrdering Facility: [facility] Address: [address] [place] [address] Performed By: #### 5 7021-8 ####[facility] LABCLIA [id number] [place] [address] Hemoglobin (Bld) [Mass/Vol] 13.4 g/dL Normal 13.0-17.0 [facility] Comment on above: Order Comment: Speci men Type: BLOOD SPECIMENOrdering Facility: [facility] Address: [address] [place] [address] Performed By: #### 5 7021-8 ####[facility] LABCLIA [id number] [place] [address] Immature granulocytes (Bld) [#/Vol] 10*3/uL Normal <0.10 [facility] Comment on above: Order Comment: Speci men Type: BLOOD SPECIMENOrdering Facility: [facility] Address: [address] [place] [address] Performed By: #### 5 7021-8 ####[facility] LABCLIA [id number] [place] [address] Immature granulocytes/100 WBC (Bld) 0.3 % Normal [facility] Comment on above: Order Comment: Speci men Type: BLOOD SPECIMENOrdering Facility: [facility] Address: [address] [place] [address] Performed By: #### 5 7021-8 ####[facility] LABCLIA [id number] [place] [address] Lymphocytes (Bld) [#/Vol] 0.77 10*3/uL Low 1.00-4.00 [facility] Comment on above: Order Comment: Speci men Type: BLOOD SPECIMENOrdering Facility: [facility] Address: [address] [place] [address] Performed By: #### 5 7021-8 ####[facility] LABCLIA [id number] [place] [address] Lymphocytes/100 WBC (Bld) 10.5 % Normal [facility] Comment on above: Order Comment: Speci men Type: BLOOD SPECIMENOrdering Facility: [facility] Address: [address] [place] [address] Performed By: #### 5 7021-8 ####[facility] LABCLIA [id number] [place] [address] MCH (RBC) [Entitic mass] 28.2 pg Normal 26.0-34.0 [facility] Comment on above: Order Comment: Speci men Type: BLOOD SPECIMENOrdering Facility: [facility] Address: [address] [place] [address] Performed By: #### 5 7021-8 ####[facility] LABCLIA [id number] [place] [address] MCHC (RBC) [Mass/Vol] 33.3 g/dL Normal 30.5-36.0 [facility] Comment on above: Order Comment: Speci men Type: BLOOD SPECIMENOrdering Facility: [facility] Address: [address] [place] [address] Performed By: #### 5 7021-8 ####[facility] LABCLIA [id number] [place] [address] MCV (RBC) [Entitic vol] 84.5 fL Normal 80.0-100.0 [facility] Comment on above: Order Comment: Speci men Type: BLOOD SPECIMENOrdering Facility: [facility] Address: [address] [place] [address] Performed By: #### 5 7021-8 ####[facility] LABCLIA [id number] [place] [address] Monocytes (Bld) [#/Vol] 0.47 10*3/uL Normal <0.87 [facility] Comment on above: Order Comment: Speci men Type: BLOOD SPECIMENOrdering Facility: [facility] Address: [address] [place] [address] Performed By: #### 5 7021-8 ####[facility] LABIA [id number] [place] [address] Monocytes/100 WBC (Bld) 6.4 % Normal [facility] Comment on above: Order Comment: Speci men Type: BLOOD SPECIMENOrdering Facility: [facility] Address: [address] [place] [address] Performed By: #### 5 7021-8 ####[facility] LABCLIA [id number] [place] [address] Neutrophils (Bld) [#/Vol] 5.80 10*3/uL Normal 1.45-7.50 [facility] Comment on above: Order Comment: Speci men Type: BLOOD SPECIMENOrdering Facility: [facility] Address: [address] [place] [address] Performed By: #### 5 7021-8 ####[facility] LABIA [id number] [place] [address] Neutrophils/100 WBC (Bld) 78.7 % Normal [facility] Comment on above: Order Comment: Speci men Type: BLOOD SPECIMENOrdering Facility: [facility] Address: [address] [place] [address] Performed By: #### 5 7021-8 ####[facility] LABCLIA [id number] [place] [address] Nucleated RBC (Bld) [#/Vol] 10*3/uL Normal <0.01 [facility] Comment on above: Order Comment: Speci men Type: BLOOD SPECIMENOrdering Facility: [facility] Address: [address] [place] [address] Performed By: #### 5 7021-8 ####[facility] LABCLIA [id number] [place] [address] Nucleated RBC/100 WBC (Bld) [Ratio] 0.0 /100 WBC Normal [facility] Comment on above: Order Comment: Speci men Type: BLOOD SPECIMENOrdering Facility: [facility] Address: [address] [place] [address] Performed By: #### 5 7021-8 ####[facility] LABCLIA [id number] [place] [address] Platelet mean volume (Bld) [Entitic vol] 9.1 fL Normal 9.0-12.7 [facility] Comment on above: Order Comment: Speci men Type: BLOOD SPECIMENOrdering Facility: [facility] Address: [address] [place] [address] Performed By: #### 5 7021-8 ####[facility] LABCLIA [id number] [place] [address] Platelets (Bld) [#/Vol] 179 10*3/uL Normal 150-400 [facility] Comment on above: Order Comment: Speci men Type: BLOOD SPECIMENOrdering Facility: [facility] Address: [address] [place] [address] Performed By: #### 5 7021-8 ####[facility] LABCLIA [id number] [place] [address] RBC (Bld) [#/Vol] 4.76 10*6/uL Normal 4.20-6.00 [facility] Comment on above: Order Comment: Speci men Type: BLOOD SPECIMENOrdering Facility: [facility] Address: [address] [place] [address] Performed By: #### 5 7021-8 ####[facility] LABIA [id number] [place] [address] WBC (Bld) [#/Vol] 7.36 10*3/uL Normal 3.70-11.00 [facility] Comment on above: Order Comment: Speci men Type: BLOOD SPECIMENOrdering Facility: [facility] Address: [address] [place] [address] Performed By: #### 5 7021-8 ####[facility] LABIA [id number] [place] [address] CNOVSPon 07-18-2023 CNOVSP Normal [facility] metabolic 2000 panelon 07-18-2023 Albumin [Mass/Vol] 4.3 g/dL Normal 3.9-4.9 [facility] Comment on above: Order Comment: Speci men Type: BLOOD SPECIMENOrdering Facility: [facility] Address: [address] [place] [address] Performed By: #### 2 4323-8 ####[facility] LABIA [id number] [place] [address] ALP [Catalytic activity/Vol] 79 U/L Normal 38-113 [facility] Comment on above: Order Comment: Speci men Type: BLOOD SPECIMENOrdering Facility: [facility] Address: [address] [place] [address] Performed By: #### 2 4323-8 ####[facility] LABIA [id number] [place] [address] ALT [Catalytic activity/Vol] 17 U/L Normal 10-54 [facility] Comment on above: Order Comment: Speci men Type: BLOOD SPECIMENOrdering Facility: [facility] Address: [address] [place] [address] Performed By: #### 2 4323-8 ####[facility] LABCLIA [id number] [place] [address] Anion gap [Moles/Vol] 6 mmol/L Low 9-18 [facility] Comment on above: Order Comment: Speci men Type: BLOOD SPECIMENOrdering Facility: [facility] Address: [address] [place] [address] Performed By: #### 2 4323-8 ####[facility] LABCLIA [id number] [place] [address] AST [Catalytic activity/Vol] 24 U/L Normal 14-40 [facility] Comment on above: Order Comment: Speci men Type: BLOOD SPECIMENOrdering Facility: [facility] Address: [address] [place] [address] Performed By: #### 2 4323-8 ####[facility] LABCLIA [id number] [place] [address] Bilirubin [Mass/Vol] 0.5 mg/dL Normal 0.2-1.3 [facility] Comment on above: Order Comment: Speci men Type: BLOOD SPECIMENOrdering Facility: [facility] Address: [address] [place] [address] Performed By: #### 2 4323-8 ####[facility] LABCLIA [id number] [place] [address] Calcium [Mass/Vol] 9.1 mg/dL Normal 8.5-10.2 [facility] Comment on above: Order Comment: Speci men Type: BLOOD SPECIMENOrdering Facility: [facility] Address: [address] [place] [address] Performed By: #### 2 4323-8 ####[facility] LABCLIA [id number] [place] [address] Chloride [Moles/Vol] 107 mmol/L High 97-105 [facility] Comment on above: Order Comment: Speci men Type: BLOOD SPECIMENOrdering Facility: [facility] Address: [address] [place] [address] Performed By: #### 2 4323-8 ####[facility] LABCLIA [id number] [place] [address] CO2 [Moles/Vol] 27 mmol/L Normal 22-30 [facility] Comment on above: Order Comment: Speci men Type: BLOOD SPECIMENOrdering Facility: [facility] Address: [address] [place] [address] Performed By: #### 2 4323-8 ####[facility] LABCLIA [id number] [place] [address] Creatinine [Mass/Vol] 2.03 mg/dL High 0.73-1.22 [facility] Comment on above: Order Comment: Speci men Type: BLOOD SPECIMENOrdering Facility: [facility] Address: [address] [place] [address] Performed By: #### 2 4323-8 ####[facility] LABCLIA [id number] [place] [address] Creatinine and Glomerular filtration rate.predicted panel (S/P/Bld) 32 mL/min/1.73m??? Low >=60 [facility] Comment on above: Order Comment: Speci men Type: BLOOD SPECIMENOrdering Facility: [facility] Address: [address] [place] [address] Result Comment: Viviana mated Glomerular Filtration Rate [...] actual GFR. Performed By: #### 2 4323-8 ####[facility] LABCLIA [id number] [place] [address] Glucose [Mass/Vol] 104 mg/dL High 74-99 [facility] Comment on above: Order Comment: Speci men Type: BLOOD SPECIMENOrdering Facility: [facility] Address: [address] [place] [address] Result Comment: The [place] Diabetes Association (ADA) provides guidance for cutoff [...] Standards of Medical Care in Diabetes 2016, [place] Diabetes Association. Diabetes Care. 2016.39(Suppl 1). Performed By: #### 2 4323-8 ####[facility] LABCLIA [id number] [place] [address] Potassium [Moles/Vol] 4.1 mmol/L Normal 3.7-5.1 [facility] Comment on above: Order Comment: Speci men Type: BLOOD SPECIMENOrdering Facility: [facility] Address: [address] [place] [address] Performed By: #### 2 4323-8 ####[facility] LABCLIA [id number] [place] [address] Protein [Mass/Vol] 6.1 g/dL Low 6.3-8.0 [facility] Comment on above: Order Comment: Speci men Type: BLOOD SPECIMENOrdering Facility: [facility] Address: [address] [place] [address] Performed By: #### 2 4323-8 ####[facility] LABCLIA [id number] [place] [address] Sodium [Moles/Vol] 140 mmol/L Normal 136-144 [facility] Comment on above: Order Comment: Speci men Type: BLOOD SPECIMENOrdering Facility: [facility] Address: [address] [place] [address] Performed By: #### 2 4323-8 ####[facility] LABCLIA [id number] [place] [address] Urea nitrogen [Mass/Vol] 34 mg/dL High 9-24 [facility] Comment on above: Order Comment: Speci men Type: BLOOD SPECIMENOrdering Facility: [facility] Address: [address] [place] [address] Performed By: #### 2 4323-8 ####[facility] LABCLIA [id number] [place] [address] Cortshaye Keisha-Ricaon 07-18-20 23 Cortisol [Mass/Vol] 10.2 ug/dL Normal 4.8-19.5 [facility] Comment on above: Order Comment: Speci men Type: BLOOD SPECIMENOrdering Facility: [facility] Address: [address] [place] [address] Result Comment: Prov ided reference range is from 6-10 AM sample collection time.Cortisol Reference Range: 6-10 AM = 4.8-19.5 ug/dL, 4-8 PM = 2.5-11.9 ug/dL Performed By: #### 3 016-3, 2143-6 ####[facility] LABCLIA [id number] [address] [facility] HbA1c (Bld)on 07-18-2023 Average glucose Estimated from glycated hemoglobin (Bld) [Mass/Vol] 103 mg/dL Normal [facility] Comment on above: Order Comment: Speci men Type: BLOOD SPECIMENOrdering Facility: [facility] Address: [address] [place] [address] Result Comment: eAG: (Estimated average glucose) is a calculated value from HgbA1c and is circulation sales representative of the average blood glucose level in the last 2-3 month period. Performed By: #### 5 5454-3 ####[facility] LABCLIA [id number] [address] OF [facility] HbA1c (Bld) [Mass fraction] 5.2 % Normal 4.3-5.6 [facility] Comment on above: Order Comment: Speci men Type: BLOOD SPECIMENOrdering Facility: [facility] Address: [address] [place] [address] Result Comment: Amer [place] Diabetes Association guidelines indicate that patients with HgbA1c in the range 5.7-6.4% are at increased risk for development of diabetes, and intervention by lifestyle modification may be beneficial. HgbA1c greater or equal to 6.5% is considered diagnostic of diabetes. Performed By: #### 5 5454-3 ####[facility] LABCLIA [id number] [place] [address] [place] TSH SerPl-aCncon 07-18-2023 TSH Qn 2.150 m[IU]/L Normal 0.270-4.200 [facility] Comment on above: Order Comment: Speci men Type: BLOOD SPECIMENOrdering Facility: [facility] Address: [address] [place] [address] Performed By: #### 3 016-3, 2143-6 ####[facility] LABCLIA [id number] [address] [place] CBC W Auto Differential pane l (Bld)on 06-27-2023 Basophils (Bld) [#/Vol] 0.05 10*3/uL Normal <0.11 [facility] Comment on above: Order Comment: Speci men Type: BLOOD SPECIMENOrdering Facility: [facility] Address: [address] [place] [address] Performed By: #### 5 7021-8 ####[facility] LABCLIA [id number] [place] [address] Basophils/100 WBC (Bld) 0.8 % Normal [facility] Comment on above: Order Comment: Speci men Type: BLOOD SPECIMENOrdering Facility: [facility] Address: [address] [place] [address] Performed By: #### 5 7021-8 ####[facility] LABCLIA [id number] [place] [address] Differential cell count method Nom (Bld) Auto Normal [facility] Comment on above: Order Comment: Speci men Type: BLOOD SPECIMENOrdering Facility: [facility] Address: [address] [place] [address] Performed By: #### 5 7021-8 ####[facility] LABCLIA [id number] [place] [address] Eosinophils (Bld) [#/Vol] 0.28 10*3/uL Normal <0.46 [facility] Comment on above: Order Comment: Speci men Type: BLOOD SPECIMENOrdering Facility: [facility] Address: [address] [place] [address] Performed By: #### 5 7021-8 ####[facility] LABCLIA [id number] [place] [address] Eosinophils/100 WBC (Bld) 4.4 % Normal [facility] Comment on above: Order Comment: Speci men Type: BLOOD SPECIMENOrdering Facility: [facility] Address: [address] [place] [address] Performed By: #### 5 7021-8 ####[facility] LABCLIA [id number] [place] [address] Erythrocyte distribution width (RBC) [Ratio] 13.7 % Normal 11.5-15.0 [facility] Comment on above: Order Comment: Speci men Type: BLOOD SPECIMENOrdering Facility: [facility] Address: [address] [place] [address] Performed By: #### 5 7021-8 ####[facility] LABCLIA [id number] [place] [address] Hematocrit (Bld) [Volume fraction] 39.7 % Normal 39.0-51.0 [facility] Comment on above: Order Comment: Speci men Type: BLOOD SPECIMENOrdering Facility: [facility] Address: [address] [place] [address] Performed By: #### 5 7021-8 ####[facility] LABCLIA [id number] [place] [address] Hemoglobin (Bld) [Mass/Vol] 13.3 g/dL Normal 13.0-17.0 [facility] Comment on above: Order Comment: Speci men Type: BLOOD SPECIMENOrdering Facility: [facility] Address: [address] [place] [address] Performed By: #### 5 7021-8 ####[facility] LABCLIA [id number] [place] [address] Immature granulocytes (Bld) [#/Vol] 10*3/uL Normal <0.10 [facility] Comment on above: Order Comment: Speci men Type: BLOOD SPECIMENOrdering Facility: [facility] Address: [address] [place] [address] Performed By: #### 5 7021-8 ####[facility] LABCLIA [id number] [place] [address] Immature granulocytes/100 WBC (Bld) 0.3 % Normal [facility] Comment on above: Order Comment: Speci men Type: BLOOD SPECIMENOrdering Facility: [facility] Address: [address] [place] [address] Performed By: #### 5 7021-8 ####[facility] LABCLIA [id number] [place] [address] Lymphocytes (Bld) [#/Vol] 0.89 10*3/uL Low 1.00-4.00 [facility] Comment on above: Order Comment: Speci men Type: BLOOD SPECIMENOrdering Facility: [facility] Address: [address] [place] [address] Performed By: #### 5 7021-8 ####[facility] LABCLIA [id number] [place] [address] Lymphocytes/100 WBC (Bld) 14.1 % Normal [facility] Comment on above: Order Comment: Speci men Type: BLOOD SPECIMENOrdering Facility: [facility] Address: [address] [place] [address] Performed By: #### 5 7021-8 ####[facility] LABCLIA [id number] [place] [address] MCH (RBC) [Entitic mass] 28.2 pg Normal 26.0-34.0 [facility] Comment on above: Order Comment: Speci men Type: BLOOD SPECIMENOrdering Facility: [facility] Address: [address] [place] [address] Performed By: #### 5 7021-8 ####[facility] LABCLIA [id number] [place] [address] MCHC (RBC) [Mass/Vol] 33.5 g/dL Normal 30.5-36.0 [facility] Comment on above: Order Comment: Speci men Type: BLOOD SPECIMENOrdering Facility: [facility] Address: [address] [place] [address] Performed By: #### 5 7021-8 ####[facility] LABCLIA [id number] [place] [address] MCV (RBC) [Entitic vol] 84.3 fL Normal 80.0-100.0 [facility] Comment on above: Order Comment: Speci men Type: BLOOD SPECIMENOrdering Facility: [facility] Address: [address] [place] [address] Performed By: #### 5 7021-8 ####[facility] LABIA [id number] [place] [address] Monocytes (Bld) [#/Vol] 0.48 10*3/uL Normal <0.87 [facility] Comment on above: Order Comment: Speci men Type: BLOOD SPECIMENOrdering Facility: [facility] Address: [facility] [place] [address] Performed By: #### 5 7021-8 ####[facility] LABCLIA [id number] [place] [address] Monocytes/100 WBC (Bld) 7.6 % Normal [facility] Comment on above: Order Comment: Speci men Type: BLOOD SPECIMENOrdering Facility: [facility] Address: [address] [place] [address] Performed By: #### 5 7021-8 ####[facility] LABCLIA [id number] [place] [address] Neutrophils (Bld) [#/Vol] 4.60 10*3/uL Normal 1.45-7.50 [facility] Comment on above: Order Comment: Speci men Type: BLOOD SPECIMENOrdering Facility: [facility] Address: [address] [place] [address] Performed By: #### 5 7021-8 ####[facility] LABCLIA [id number] [place] [address] Neutrophils/100 WBC (Bld) 72.8 % Normal [facility] Comment on above: Order Comment: Speci men Type: BLOOD SPECIMENOrdering Facility: [facility] Address: [address] [place] [address] Performed By: #### 5 7021-8 ####[facility] LABCLIA [id number] [place] [address] Nucleated RBC (Bld) [#/Vol] 10*3/uL Normal <0.01 [facility] Comment on above: Order Comment: Speci men Type: BLOOD SPECIMENOrdering Facility: [facility] Address: [address] [place] [address] Performed By: #### 5 7021-8 ####[facility] LABCLIA [id number] [place] [address] Nucleated RBC/100 WBC (Bld) [Ratio] 0.0 /100 WBC Normal [facility] Comment on above: Order Comment: Speci men Type: BLOOD SPECIMENOrdering Facility: [facility] Address: [address] [place] [address] Performed By: #### 5 7021-8 ####[facility] LABCLIA [id number] [place] [address] Platelet mean volume (Bld) [Entitic vol] 9.5 fL Normal 9.0-12.7 [facility] Comment on above: Order Comment: Speci men Type: BLOOD SPECIMENOrdering Facility: [facility] Address: [address] [place] [address] Performed By: #### 5 7021-8 ####[facility] LABCLIA [id number] [place] [address] Platelets (Bld) [#/Vol] 177 10*3/uL Normal 150-400 [facility] Comment on above: Order Comment: Speci men Type: BLOOD SPECIMENOrdering Facility: [facility] Address: [address] [place] [address] Performed By: #### 5 7021-8 ####[facility] LABCLIA [id number] [place] [address] RBC (Bld) [#/Vol] 4.71 10*6/uL Normal 4.20-6.00 [facility] Comment on above: Order Comment: Speci men Type: BLOOD SPECIMENOrdering Facility: [facility] Address: [address] [place] [address] Performed By: #### 5 7021-8 ####[facility] LABCLIA [id number] [place] [address] WBC (Bld) [#/Vol] 6.32 10*3/uL Normal 3.70-11.00 [facility] Comment on above: Order Comment: Speci men Type: BLOOD SPECIMENOrdering Facility: [facility] Address: [address] [place] [address] Performed By: #### 5 7021-8 ####[facility] LABCLIA [id number] [place] [address] CNOVSPon 06-27-2023 CNOVSP Normal [facility] metabolic 2000 panelon 06-27-2023 Albumin [Mass/Vol] 4.1 g/dL Normal 3.9-4.9 [facility] Comment on above: Order Comment: Speci men Type: BLOOD SPECIMENOrdering Facility: [facility] Address: [address] [place] [address] Performed By: #### 2 4323-8 ####[facility] LABIA [id number] [place] [address] ALP [Catalytic activity/Vol] 83 U/L Normal 38-113 [facility] Comment on above: Order Comment: Speci men Type: BLOOD SPECIMENOrdering Facility: [facility] Address: [address] [place] [address] Performed By: #### 2 4323-8 ####[facility] LABIA [id number] [place] [address] ALT [Catalytic activity/Vol] 21 U/L Normal 10-54 [facility] Comment on above: Order Comment: Speci men Type: BLOOD SPECIMENOrdering Facility: [facility] Address: [address] [place] [address] Performed By: #### 2 4323-8 ####[facility] LABCLIA [id number] [place] [address] Anion gap [Moles/Vol] 10 mmol/L Normal 9-18 [facility] Comment on above: Order Comment: Speci men Type: BLOOD SPECIMENOrdering Facility: [facility] Address: [address] [place] [address] Performed By: #### 2 4323-8 ####[facility] LABCLIA [id number] [place] [address] AST [Catalytic activity/Vol] 28 U/L Normal 14-40 [facility] Comment on above: Order Comment: Speci men Type: BLOOD SPECIMENOrdering Facility: [facility] Address: [address] [place] [address] Performed By: #### 2 4323-8 ####[facility] LABCLIA [id number] [place] [address] Bilirubin [Mass/Vol] 0.4 mg/dL Normal 0.2-1.3 [facility] Comment on above: Order Comment: Speci men Type: BLOOD SPECIMENOrdering Facility: [facility] Address: [address] [place] [address] Performed By: #### 2 4323-8 ####[facility] LABCLIA [id number] [place] [address] Calcium [Mass/Vol] 8.9 mg/dL Normal 8.5-10.2 [facility] Comment on above: Order Comment: Speci men Type: BLOOD SPECIMENOrdering Facility: [facility] Address: [address] [place] [address] Performed By: #### 2 4323-8 ####[facility] LABCLIA [id number] [place] [address] Chloride [Moles/Vol] 105 mmol/L Normal 97-105 [facility] Comment on above: Order Comment: Speci men Type: BLOOD SPECIMENOrdering Facility: [facility] Address: [address] [place] [address] Performed By: #### 2 4323-8 ####[facility] LABCLIA [id number] [place] [address] CO2 [Moles/Vol] 24 mmol/L Normal 22-30 [facility] Comment on above: Order Comment: Speci men Type: BLOOD SPECIMENOrdering Facility: [facility] Address: [address] [place] [address] Performed By: #### 2 4323-8 ####[facility] LABCLIA [id number] [place] [address] Creatinine [Mass/Vol] 1.89 mg/dL High 0.73-1.22 [facility] Comment on above: Order Comment: Speci men Type: BLOOD SPECIMENOrdering Facility: [facility] Address: [address] [place] [address] Performed By: #### 2 4323-8 ####[facility] LABCLIA [id number] [place] [address] Creatinine and Glomerular filtration rate.predicted panel (S/P/Bld) 35 mL/min/1.73m??? Low >=60 [facility] Comment on above: Order Comment: Speci men Type: BLOOD SPECIMENOrdering Facility: [facility] Address: [address] [place] [address] Result Comment: Viviana mated Glomerular Filtration Rate [...] actual GFR. Performed By: #### 2 4323-8 ####[facility] LABCLIA [id number] [place] [address] Glucose [Mass/Vol] 106 mg/dL High 74-99 [facility] Comment on above: Order Comment: Speci men Type: BLOOD SPECIMENOrdering Facility: [facility] Address: [address] [place] [address] Result Comment: The [place] Diabetes Association (ADA) provides guidance for cutoff [...] Standards of Medical Care in Diabetes 2016, [place] [employer] Association. Diabetes Care. 2016.39(Suppl 1). Performed By: #### 2 4323-8 ####[facility] LABCLIA [id number] [place] [address] Potassium [Moles/Vol] 4.4 mmol/L Normal 3.7-5.1 [facility] Comment on above: Order Comment: Speci men Type: BLOOD SPECIMENOrdering Facility: [facility] Address: [address] [place] [address] Performed By: #### 2 4323-8 ####[facility] LABCLIA [id number] [place] [address] Protein [Mass/Vol] 6.0 g/dL Low 6.3-8.0 [facility] Comment on above: Order Comment: Speci men Type: BLOOD SPECIMENOrdering Facility: [facility] Address: [address] [place] [address] Performed By: #### 2 4323-8 ####[facility] LABCLIA [id number] [place] [address] Sodium [Moles/Vol] 139 mmol/L Normal 136-144 [facility] Comment on above: Order Comment: Speci men Type: BLOOD SPECIMENOrdering Facility: [facility] Address: [address] [place] [address] Performed By: #### 2 4323-8 ####[facility] LABCLIA [id number] [place] [address] Urea nitrogen [Mass/Vol] 31 mg/dL High 9-24 [facility] Comment on above: Order Comment: Speci men Type: BLOOD SPECIMENOrdering Facility: [facility] Address: [address] [place] [address] Performed By: #### 2 4323-8 ####[facility] LABCLIA [id number] [place] [address] Beverly ValdesHemalathaseda 06-27-20 Cortisol [Mass/Vol] 9.7 ug/dL Normal 4.8-19.5 [facility] Comment on above: Order Comment: Virginiai oralia Type: BLOOD SPECIMENOrdering Facility: [facility] Address: [address] [place] [address] Result Comment: Prov ided reference range is from 6-10 AM sample collection time.Cortisol Reference Range: 6-10 AM = 4.8-19.5 ug/dL, 4-8 PM = 2.5-11.9 ug/dL Performed By: #### 3 016-3, 2143-6 ####[facility] LABCLIA [id number] [address] [facility] HbA1c (Bld)on 06-27-2023 Average glucose Estimated from glycated hemoglobin (Bld) [Mass/Vol] 105 mg/dL Normal [facility] Comment on above: Order Comment: Vero barton Type: BLOOD SPECIMENOrdering Facility: [facility] Address: [address] [place] [address] Result Comment: eAG: (Estimated average glucose) is a calculated value from HgbA1c and is circulation sales representative of the average blood glucose level in the last 2-3 month period. Performed By: #### 5 5454-3 ####[facility] LABCLIA [id number] [place] [address] [place] HbA1c (Bld) [Mass fraction] 5.3 % Normal 4.3-5.6 [facility] Comment on above: Order Comment: Vero barton Type: BLOOD SPECIMENOrdering Facility: [facility] Address: [address] [place] [address] Result Comment: [place] Diabetes Association guidelines indicate that patients with HgbA1c in the range 5.7-6.4% are at increased risk for development of diabetes, and intervention by lifestyle modification may be beneficial. HgbA1c greater or equal to 6.5% is considered diagnostic of diabetes. Performed By: #### 5 5454-3 ####[facility] LABCLIA [id number] [address] [facility] TSH SerPl-aCncon 06-27-2023 TSH Qn 1.920 m[IU]/L Normal 0.270-4.200 [facility] Comment on above: Order Comment: Speci men Type: BLOOD SPECIMENOrdering Facility: [facility] Address: [address] [place] [address] Performed By: #### 3 016-3, 2143-6 ####[facility] LABCLIA [id number] [address] CBC W Auto Differential pane l (Bld)on 06-06-2023 Basophils (Bld) [#/Vol] 0.05 10*3/uL Normal <0.11 [facility] Comment on above: Order Comment: Speci men Type: BLOOD SPECIMENOrdering Facility: [facility] Address: [address] [place] [address] Performed By: #### 5 7021-8 ####[facility] LABCLIA [id number] [place] [address] Basophils/100 WBC (Bld) 0.8 % Normal [facility] Comment on above: Order Comment: Speci men Type: BLOOD SPECIMENOrdering Facility: [facility] Address: [address] [place] [address] Performed By: #### 5 7021-8 ####[facility] LABCLIA [id number] [place] [address] Differential cell count method Nom (Bld) Auto Normal [facility] Comment on above: Order Comment: Speci men Type: BLOOD SPECIMENOrdering Facility: [facility] Address: [address] [place] [address] Performed By: #### 5 7021-8 ####[facility] LABCLIA [id number] [place] [address] Eosinophils (Bld) [#/Vol] 0.32 10*3/uL Normal <0.46 [facility] Comment on above: Order Comment: Speci men Type: BLOOD SPECIMENOrdering Facility: [facility] Address: [address] [place] [address] Performed By: #### 5 7021-8 ####[facility] LABCLIA [id number] [place] [address] Eosinophils/100 WBC (Bld) 4.8 % Normal [facility] Comment on above: Order Comment: Speci men Type: BLOOD SPECIMENOrdering Facility: [facility] Address: [address] [place] [address] Performed By: #### 5 7021-8 ####[facility] LABCLIA [id number] [place] [address] Erythrocyte distribution width (RBC) [Ratio] 13.8 % Normal 11.5-15.0 [facility] Comment on above: Order Comment: Speci men Type: BLOOD SPECIMENOrdering Facility: [facility] Address: [address] [place] [address] Performed By: #### 5 7021-8 ####[facility] LABCLIA [id number] [place] [address] Hematocrit (Bld) [Volume fraction] 42.6 % Normal 39.0-51.0 [facility] Comment on above: Order Comment: Speci men Type: BLOOD SPECIMENOrdering Facility: [facility] Address: [address] [place] [address] Performed By: #### 5 7021-8 ####[facility] LABCLIA [id number] [place] [address] Hemoglobin (Bld) [Mass/Vol] 14.4 g/dL Normal 13.0-17.0 [facility] Comment on above: Order Comment: Speci men Type: BLOOD SPECIMENOrdering Facility: [facility] Address: [address] [place] [address] Performed By: #### 5 7021-8 ####[facility] LABCLIA [id number] [place] [address] Immature granulocytes (Bld) [#/Vol] 0.03 10*3/uL Normal <0.10 [facility] Comment on above: Order Comment: Speci men Type: BLOOD SPECIMENOrdering Facility: [facility] Address: [address] [place] [address] Performed By: #### 5 7021-8 ####[facility] LABCLIA [id number] [place] [address] Immature granulocytes/100 WBC (Bld) 0.5 % Normal [facility] Comment on above: Order Comment: Speci men Type: BLOOD SPECIMENOrdering Facility: [facility] Address: [address] [place] [address] Performed By: #### 5 7021-8 ####[facility] LABCLIA [id number] [place] [address] Lymphocytes (Bld) [#/Vol] 0.93 10*3/uL Low 1.00-4.00 [facility] Comment on above: Order Comment: Speci men Type: BLOOD SPECIMENOrdering Facility: [facility] Address: [address] [place] [address] Performed By: #### 5 7021-8 ####[facility] LABCLIA [id number] [place] [address] Lymphocytes/100 WBC (Bld) 14.1 % Normal [facility] Comment on above: Order Comment: Speci men Type: BLOOD SPECIMENOrdering Facility: [facility] Address: [address] [place] [address] Performed By: #### 5 7021-8 ####[facility] LABCLIA [id number] [place] [address] MCH (RBC) [Entitic mass] 28.7 pg Normal 26.0-34.0 [facility] Comment on above: Order Comment: Speci men Type: BLOOD SPECIMENOrdering Facility: [facility] Address: [address] [place] [address] Performed By: #### 5 7021-8 ####[facility] LABCLIA [id number] [place] [address] MCHC (RBC) [Mass/Vol] 33.8 g/dL Normal 30.5-36.0 [facility] Comment on above: Order Comment: Speci men Type: BLOOD SPECIMENOrdering Facility: [facility] Address: [address] [place] [address] Performed By: #### 5 7021-8 ####[facility] LABIA [id number] [place] [address] MCV (RBC) [Entitic vol] 84.9 fL Normal 80.0-100.0 [facility] Comment on above: Order Comment: Speci men Type: BLOOD SPECIMENOrdering Facility: [facility] Address: [address] [place] [address] Performed By: #### 5 7021-8 ####[facility] LABCLIA [id number] [place] [address] Monocytes (Bld) [#/Vol] 0.42 10*3/uL Normal <0.87 [facility] Comment on above: Order Comment: Speci men Type: BLOOD SPECIMENOrdering Facility: [facility] Address: [address] [place] [address] Performed By: #### 5 7021-8 ####[facility] LABIA [id number] [place] [address] Monocytes/100 WBC (Bld) 6.4 % Normal [facility] Comment on above: Order Comment: Speci men Type: BLOOD SPECIMENOrdering Facility: [facility] Address: [address] [place] [address] Performed By: #### 5 7021-8 ####[facility] LABCLIA [id number] [place] [address] Neutrophils (Bld) [#/Vol] 4.85 10*3/uL Normal 1.45-7.50 [facility] Comment on above: Order Comment: Speci men Type: BLOOD SPECIMENOrdering Facility: [facility] Address: [address] [place] [address] Performed By: #### 5 7021-8 ####[facility] LABCLIA [id number] [place] [address] Neutrophils/100 WBC (Bld) 73.4 % Normal [facility] Comment on above: Order Comment: Speci men Type: BLOOD SPECIMENOrdering Facility: [facility] Address: [address] [place] [address] Performed By: #### 5 7021-8 ####[facility] LABCLIA [id number] [place] [address] Nucleated RBC (Bld) [#/Vol] 10*3/uL Normal <0.01 [facility] Comment on above: Order Comment: Speci men Type: BLOOD SPECIMENOrdering Facility: [facility] Address: [address] [place] [address] Performed By: #### 5 7021-8 ####[facility] LABCLIA [id number] [place] [address] Nucleated RBC/100 WBC (Bld) [Ratio] 0.0 /100 WBC Normal [facility] Comment on above: Order Comment: Speci men Type: BLOOD SPECIMENOrdering Facility: [facility] Address: [address] [place] [address] Performed By: #### 5 7021-8 ####[facility] LABCLIA [id number] [place] [address] Platelet mean volume (Bld) [Entitic vol] 9.0 fL Normal 9.0-12.7 [facility] Comment on above: Order Comment: Speci men Type: BLOOD SPECIMENOrdering Facility: [facility] Address: [address] [place] [address] Performed By: #### 5 7021-8 ####[facility] LABCLIA [id number] [place] [address] Platelets (Bld) [#/Vol] 185 10*3/uL Normal 150-400 [facility] Comment on above: Order Comment: Speci men Type: BLOOD SPECIMENOrdering Facility: [facility] Address: [address] [place] [address] Performed By: #### 5 7021-8 ####[facility] LABIA [id number] [place] [address] RBC (Bld) [#/Vol] 5.02 10*6/uL Normal 4.20-6.00 [facility] Comment on above: Order Comment: Speci men Type: BLOOD SPECIMENOrdering Facility: [facility] Address: [address] [place] [address] Performed By: #### 5 7021-8 ####[facility] LABIA [id number] [place] [address] WBC (Bld) [#/Vol] 6.60 10*3/uL Normal 3.70-11.00 [facility] Comment on above: Order Comment: Speci men Type: BLOOD SPECIMENOrdering Facility: [facility] Address: [address] [place] [address] Performed By: #### 5 7021-8 ####[facility] LABIA [id number] [place] [address] CNOVSPon 06-06-2023 CNOVSP Normal [facility] Comprehensive metabolic 2000 panelon 06-06-2023 Albumin [Mass/Vol] 4.6 g/dL Normal 3.9-4.9 [facility] Comment on above: Order Comment: Speci men Type: BLOOD SPECIMENOrdering Facility: [facility] Address: [address] [place] [place] [address] Performed By: #### 2 4323-8 ####[facility] LABCLIA [id number] [place] [address] ALP [Catalytic activity/Vol] 82 U/L Normal 38-113 [facility] Comment on above: Order Comment: Speci men Type: BLOOD SPECIMENOrdering Facility: [facility] Address: [address] [place] [address] Performed By: #### 2 4323-8 ####[facility] LABCLIA [id number] [place] [address] ALT [Catalytic activity/Vol] 17 U/L Normal 10-54 [facility] Comment on above: Order Comment: Speci men Type: BLOOD SPECIMENOrdering Facility: [facility] Address: [address] [place] [address] Performed By: #### 2 4323-8 ####[facility] LABCLIA [id number] [place] [address] Anion gap [Moles/Vol] 9 mmol/L Normal 9-18 [facility] Comment on above: Order Comment: Speci men Type: BLOOD SPECIMENOrdering Facility: [facility] Address: [address] [place] [place] [address] Performed By: #### 2 4323-8 ####[facility] LABCLIA [id number] [place] [address] AST [Catalytic activity/Vol] 25 U/L Normal 14-40 [facility] Comment on above: Order Comment: Speci men Type: BLOOD SPECIMENOrdering Facility: [facility] Address: [address] [place] [address] Performed By: #### 2 4323-8 ####[facility] LABCLIA [id number] [place] [address] Bilirubin [Mass/Vol] 0.6 mg/dL Normal 0.2-1.3 [facility] Comment on above: Order Comment: Speci men Type: BLOOD SPECIMENOrdering Facility: [facility] Address: [address] [place] [address] Performed By: #### 2 4323-8 ####[facility] LABCLIA [id number] [place] [address] Calcium [Mass/Vol] 9.2 mg/dL Normal 8.5-10.2 [facility] Comment on above: Order Comment: Speci men Type: BLOOD SPECIMENOrdering Facility: [facility] Address: [address] [place] [address] Performed By: #### 2 4323-8 ####[facility] LABCLIA [id number] [place] [address] Chloride [Moles/Vol] 104 mmol/L Normal 97-105 [facility] Comment on above: Order Comment: Speci men Type: BLOOD SPECIMENOrdering Facility: [facility] Address: [address] [place] [address] Performed By: #### 2 4323-8 ####[facility] LABCLIA [id number] [place] [address] CO2 [Moles/Vol] 25 mmol/L Normal 22-30 [facility] Comment on above: Order Comment: Speci men Type: BLOOD SPECIMENOrdering Facility: [facility] Address: [address] [place] [address] Performed By: #### 2 4323-8 ####[facility] LABCLIA [id number] [place] [address] Creatinine [Mass/Vol] 2.01 mg/dL High 0.73-1.22 [facility] Comment on above: Order Comment: Speci men Type: BLOOD SPECIMENOrdering Facility: [facility] Address: [address] [place] [address] Performed By: #### 2 4323-8 ####[facility]CLIA [id number] [place] [address] Creatinine and Glomerular filtration rate.predicted panel (S/P/Bld) 32 mL/min/1.73m??? Low >=60 [facility] Comment on above: Order Comment: Vero barton Type: BLOOD SPECIMENOrdering Facility: [facility] Address: [address] [place] [address] Result Comment: Viviana mated Glomerular Filtration Rate [...] actual GFR. Performed By: #### 2 4323-8 ####[facility] [id number] [place] [address] Glucose [Mass/Vol] 100 mg/dL High 74-99 [facility] Comment on above: Order Comment: Vero barton Type: BLOOD SPECIMENOrdering Facility: [facility] Address: [address] [place] [address] Result Comment: The [place] Diabetes Association (ADA) provides guidance for cutoff [...] Standards of Medical Care in Diabetes 2016, [place] Diabetes Association. Diabetes Care. 2016.39(Suppl 1). Performed By: #### 2 4323-8 ####[facility] LABCLIA [id number] [place] [address] Potassium [Moles/Vol] 4.6 mmol/L Normal 3.7-5.1 [facility] Comment on above: Order Comment: Speci men Type: BLOOD SPECIMENOrdering Facility: [facility] Address: [address] [place] [address] Performed By: #### 2 4323-8 ####[facility] LABCLIA [id number] [place] [address] Protein [Mass/Vol] 6.5 g/dL Normal 6.3-8.0 [facility] Comment on above: Order Comment: Speci men Type: BLOOD SPECIMENOrdering Facility: [facility] Address: [address] [place] [address] Performed By: #### 2 4323-8 ####[facility] LABCLIA [id number] [place] [address] Sodium [Moles/Vol] 138 mmol/L Normal 136-144 [facility] Comment on above: Order Comment: Speci men Type: BLOOD SPECIMENOrdering Facility: [facility] Address: [address] [place] [address] Performed By: #### 2 4323-8 ####[facility] LABCLIA [id number] [place] [address] Urea nitrogen [Mass/Vol] 36 mg/dL High 9-24 [facility] Comment on above: Order Comment: Speci men Type: BLOOD SPECIMENOrdering Facility: [facility] Address: [address] [place] [address] Performed By: #### 2 4323-8 ####[facility] LABCLIA [id number] [place] [address] Beverly Koehler 06-06-20 23 Cortisol [Mass/Vol] 6.4 ug/dL Normal 4.8-19.5 [facility] Comment on above: Order Comment: Speci men Type: BLOOD SPECIMENOrdering Facility: [facility] Address: [address] [place] [address] Result Comment: Prov ided reference range is from 6-10 AM sample collection time.Cortisol Reference Range: 6-10 AM = 4.8-19.5 ug/dL, 4-8 PM = 2.5-11.9 ug/dL Performed By: #### 3 016-3, 2143-6 ####[facility] LABCLIA [id number] [place] [address] [place] HbA1c (Bld)on 06-06-2023 Average glucose Estimated from glycated hemoglobin (Bld) [Mass/Vol] 97 mg/dL Normal [facility] Comment on above: Order Comment: Speci men Type: BLOOD SPECIMENOrdering Facility: [facility] Address: [address] [place] [address] Result Comment: eAG: (Estimated average glucose) is a calculated value from HgbA1c and is circulation sales representative of the average blood glucose level in the last 2-3 month period. Performed By: #### 5 5454-3 ####[facility] LABCLIA [id number] [place] [address] [place] [facility] HbA1c (Bld) [Mass fraction] 5.0 % Normal 4.3-5.6 [facility] Comment on above: Order Comment: Speci men Type: BLOOD SPECIMENOrdering Facility: [facility] Address: [address] [place] [address] Result Comment: Amer ican Diabetes Association guidelines indicate that patients with HgbA1c in the range 5.7-6.4% are at increased risk for development of diabetes, and intervention by lifestyle modification may be beneficial. HgbA1c greater or equal to 6.5% is considered diagnostic of diabetes. Performed By: #### 5 5454-3 ####[facility] LABCLIA [id number] [place] [address] [place] TSH SerPl-aCncon 06-06-2023 TSH Qn 4.600 m[IU]/L High 0.270-4.200 [facility] Comment on above: Order Comment: Speci men Type: BLOOD SPECIMENOrdering Facility: [facility] Address: [address] [address] Performed By: #### 3 016-3, 2143-6 ####[facility] LABCLIA [id number] [address] [place] [address] [place] CT ABD/PEL W IVCONon 023 CT ABD/PEL W IVCON Normal [facility] CT CHEST W IVCONon 3 CT CHEST W IVCON Normal [facility] CBC W Auto Differential pane l (Bld)on 05-16-2023 Basophils (Bld) [#/Vol] 0.05 10*3/uL Normal <0.11 [facility] Comment on above: Order Comment: Speci men Type: BLOOD SPECIMENOrdering Facility: [facility] Address: [address] [address] Performed By: #### 5 7021-8 ####[facility] LABCLIA [id number] [place] [address] Basophils/100 WBC (Bld) 0.7 % Normal [facility] Comment on above: Order Comment: Speci men Type: BLOOD SPECIMENOrdering Facility: [facility] Address: [address] [place] [address] Performed By: #### 5 7021-8 ####[facility] LABCLIA [id number] [place] [address] Differential cell count method Nom (Bld) Auto Normal [facility] Comment on above: Order Comment: Speci men Type: BLOOD SPECIMENOrdering Facility: [facility] Address: [address] [address] Performed By: #### 5 7021-8 ####[facility] LABCLIA [id number] [place] [address] Eosinophils (Bld) [#/Vol] 0.31 10*3/uL Normal <0.46 [facility] Comment on above: Order Comment: Speci men Type: BLOOD SPECIMENOrdering Facility: [facility] Address: [address] [place] [address] Performed By: #### 5 7021-8 ####[facility] LABCLIA [id number] [place] [address] Eosinophils/100 WBC (Bld) 4.5 % Normal [facility] Comment on above: Order Comment: Speci men Type: BLOOD SPECIMENOrdering Facility: [facility] Address: [address] [place] [address] Performed By: #### 5 7021-8 ####[facility] LABCLIA [id number] [place] [address] Erythrocyte distribution width (RBC) [Ratio] 14.3 % Normal 11.5-15.0 [facility] Comment on above: Order Comment: Speci men Type: BLOOD SPECIMENOrdering Facility: [facility] Address: [address] [place] [address] Performed By: #### 5 7021-8 ####[facility] LABCLIA [id number] [place] [address] Hematocrit (Bld) [Volume fraction] 40.4 % Normal 39.0-51.0 [facility] Comment on above: Order Comment: Speci men Type: BLOOD SPECIMENOrdering Facility: [facility] Address: [address] [place] [address] Performed By: #### 5 7021-8 ####[facility] LABCLIA [id number] [place] [address] Hemoglobin (Bld) [Mass/Vol] 13.3 g/dL Normal 13.0-17.0 [facility] Comment on above: Order Comment: Speci men Type: BLOOD SPECIMENOrdering Facility: [facility] Address: [address] [place] [address] Performed By: #### 5 7021-8 ####[facility] LABCLIA [id number] [place] [address] Immature granulocytes (Bld) [#/Vol] 10*3/uL Normal <0.10 [facility] Comment on above: Order Comment: Speci men Type: BLOOD SPECIMENOrdering Facility: [facility] Address: [address] [place] [address] Performed By: #### 5 7021-8 ####[facility] LABCLIA [id number] [place] [address] Immature granulocytes/100 WBC (Bld) 0.3 % Normal [facility] Comment on above: Order Comment: Speci men Type: BLOOD SPECIMENOrdering Facility: [facility] Address: [address] [place] [address] Performed By: #### 5 7021-8 ####[facility] LABCLIA [id number] [place] [address] Lymphocytes (Bld) [#/Vol] 0.94 10*3/uL Low 1.00-4.00 [facility] Comment on above: Order Comment: Speci men Type: BLOOD SPECIMENOrdering Facility: [facility] Address: [address] [place] [address] Performed By: #### 5 7021-8 ####[facility] LABCLIA [id number] [place] [address] Lymphocytes/100 WBC (Bld) 13.6 % Normal [facility] Comment on above: Order Comment: Speci men Type: BLOOD SPECIMENOrdering Facility: [facility] Address: [address] [place] [address] Performed By: #### 5 7021-8 ####[facility] LABCLIA [id number] [place] [address] MCH (RBC) [Entitic mass] 27.8 pg Normal 26.0-34.0 [facility] Comment on above: Order Comment: Speci men Type: BLOOD SPECIMENOrdering Facility: [facility] Address: [address] [address] Performed By: #### 5 7021-8 ####[facility] LABIA [id number] [place] [address] MCHC (RBC) [Mass/Vol] 32.9 g/dL Normal 30.5-36.0 [facility] Comment on above: Order Comment: Speci men Type: BLOOD SPECIMENOrdering Facility: [facility] Address: [address] [place] [address] Performed By: #### 5 7021-8 ####[facility] LABIA [id number] [place] [address] MCV (RBC) [Entitic vol] 84.5 fL Normal 80.0-100.0 [facility] Comment on above: Order Comment: Speci men Type: BLOOD SPECIMENOrdering Facility: [facility] Address: [address] [place] [address] Performed By: #### 5 7021-8 ####[facility] LABIA [id number] [place] [address] Monocytes (Bld) [#/Vol] 0.33 10*3/uL Normal <0.87 [facility] Comment on above: Order Comment: Speci men Type: BLOOD SPECIMENOrdering Facility: [facility] Address: [address] [place] [address] Performed By: #### 5 7021-8 ####[facility] LABIA [id number] [place] [address] Monocytes/100 WBC (Bld) 4.8 % Normal [facility] Comment on above: Order Comment: Speci men Type: BLOOD SPECIMENOrdering Facility: [facility] Address: [address] [place] [address] Performed By: #### 5 7021-8 ####[facility] LABIA [id number] [place] [address] Neutrophils (Bld) [#/Vol] 5.26 10*3/uL Normal 1.45-7.50 [facility] Comment on above: Order Comment: Speci men Type: BLOOD SPECIMENOrdering Facility: [facility] Address: [address] [place] [address] Performed By: #### 5 7021-8 ####[facility] LABCLIA [id number] [place] [address] Neutrophils/100 WBC (Bld) 76.1 % Normal [facility] Comment on above: Order Comment: Speci men Type: BLOOD SPECIMENOrdering Facility: [facility] Address: [address] [place] [address] Performed By: #### 5 7021-8 ####[facility] LABCLIA [id number] [place] [address] Nucleated RBC (Bld) [#/Vol] 10*3/uL Normal <0.01 [facility] Comment on above: Order Comment: Speci men Type: BLOOD SPECIMENOrdering Facility: [facility] Address: [address] [place] [address] Performed By: #### 5 7021-8 ####[facility] LABCLIA [id number] [place] [address] Nucleated RBC/100 WBC (Bld) [Ratio] 0.0 /100 WBC Normal [facility] Comment on above: Order Comment: Speci men Type: BLOOD SPECIMENOrdering Facility: [facility] Address: [address] [place] [address] Performed By: #### 5 7021-8 ####[facility] LABCLIA [id number] [place] [address] Platelet mean volume (Bld) [Entitic vol] 8.8 fL Low 9.0-12.7 [facility] Comment on above: Order Comment: Speci men Type: BLOOD SPECIMENOrdering Facility: [facility] Address: [address] [place], [place] [address] Performed By: #### 5 7021-8 ####[facility] LABCLIA [id number] [place] [address] Platelets (Bld) [#/Vol] 188 10*3/uL Normal 150-400 [facility] Comment on above: Order Comment: Speci men Type: BLOOD SPECIMENOrdering Facility: [facility] Address: [address] [place] [address] Performed By: #### 5 7021-8 ####[facility] LABCLIA [id number] [place] [address] RBC (Bld) [#/Vol] 4.78 10*6/uL Normal 4.20-6.00 [facility] Comment on above: Order Comment: Speci men Type: BLOOD SPECIMENOrdering Facility: [facility] Address: [address] [place] [address] Performed By: #### 5 7021-8 ####[facility] LABIA [id number] [place] [address] WBC (Bld) [#/Vol] 6.91 10*3/uL Normal 3.70-11.00 [facility] Comment on above: Order Comment: Speci men Type: BLOOD SPECIMENOrdering Facility: [facility] Address: [address] [place] [address] Performed By: #### 5 7021-8 ####[facility] LABIA [id number] [place] [address] CNOVSPon 05-16-2023 CNOVSP Normal [facility] Comprehensive metabolic 2000 panelon 05-16-2023 Albumin [Mass/Vol] 4.2 g/dL Normal 3.9-4.9 [facility] Comment on above: Order Comment: Speci men Type: BLOOD SPECIMENOrdering Facility: [facility] Address: [address] [place] [address] Performed By: #### 2 4323-8 ####[facility] LABCLIA [id number] [place] [address] ALP [Catalytic activity/Vol] 75 U/L Normal 38-113 [facility] Comment on above: Order Comment: Speci men Type: BLOOD SPECIMENOrdering Facility: [facility] Address: [address] [place] [address] Performed By: #### 2 4323-8 ####[facility] LABCLIA [id number] [place] [address] ALT [Catalytic activity/Vol] 17 U/L Normal 10-54 [facility] Comment on above: Order Comment: Speci men Type: BLOOD SPECIMENOrdering Facility: [facility] Address: [address] [place] [address] Performed By: #### 2 4323-8 ####[facility] LABCLIA [id number] [place] [address] Anion gap [Moles/Vol] 9 mmol/L Normal 9-18 [facility] Comment on above: Order Comment: Speci men Type: BLOOD SPECIMENOrdering Facility: [facility] Address: [address] [place] [address] Performed By: #### 2 4323-8 ####[facility] LABCLIA [id number] [place] [address] AST [Catalytic activity/Vol] 26 U/L Normal 14-40 [facility] Comment on above: Order Comment: Speci men Type: BLOOD SPECIMENOrdering Facility: [facility] Address: [address] [place] [address] Performed By: #### 2 4323-8 ####[facility] LABCLIA [id number] [place] [address] Bilirubin [Mass/Vol] 0.5 mg/dL Normal 0.2-1.3 [facility] Comment on above: Order Comment: Speci men Type: BLOOD SPECIMENOrdering Facility: [facility] Address: [address] [address] Performed By: #### 2 4323-8 ####[facility] LABCLIA [id number] [place] [address] Calcium [Mass/Vol] 8.9 mg/dL Normal 8.5-10.2 [facility] Comment on above: Order Comment: Speci men Type: BLOOD SPECIMENOrdering Facility: [facility] Address: [address] [address] Performed By: #### 2 4323-8 ####[facility] LABCLIA [id number] [place] [address] Chloride [Moles/Vol] 103 mmol/L Normal 97-105 [facility] Comment on above: Order Comment: Speci men Type: BLOOD SPECIMENOrdering Facility: [facility] Address: [address] [address] Performed By: #### 2 4323-8 ####[facility] LABCLIA [id number] [place] [address] CO2 [Moles/Vol] 25 mmol/L Normal 22-30 [facility] Comment on above: Order Comment: Speci men Type: BLOOD SPECIMENOrdering Facility: [facility] Address: [address] [address] Performed By: #### 2 4323-8 ####[facility] LABCLIA [id number] [place] [address] Creatinine [Mass/Vol] 1.87 mg/dL High 0.73-1.22 [facility] Comment on above: Order Comment: Speci men Type: BLOOD SPECIMENOrdering Facility: [facility] Address: [address] [place] [address] Performed By: #### 2 4323-8 ####[facility] LABCLIA [id number] [place] [address] ESTIMATED GLOMERULAR FILTRATION RATE 35 mL/min/1.73m??? Low >=60 [facility] Comment on above: Order Comment: Vero barton Type: BLOOD SPECIMENOrdering Facility: [facility] Address: [address] [facility] [place] [address] Result Comment: Viviana mated Glomerular Filtration Rate [...] actual GFR. Performed By: #### 2 4323-8 ####[facility] LABCLIA [id number] [place] [address] Glucose [Mass/Vol] 142 mg/dL High 74-99 [facility] Comment on above: Order Comment: Vero barton Type: BLOOD SPECIMENOrdering Facility: [facility] Address: [address] [id number] Result Comment: The [place] Diabetes Association (ADA) provides guidance for cutoff [...] Standards of Medical Care in Diabetes 2016, [place] Diabetes Association. Diabetes Care. 2016.39(Suppl 1). Performed By: #### 2 4323-8 ####[facility] LABCLIA [id number] [place] [address] Potassium [Moles/Vol] 3.9 mmol/L Normal 3.7-5.1 [facility] Comment on above: Order Comment: Vero barton Type: BLOOD SPECIMENOrdering Facility: [facility] Address: [address] [address] Performed By: #### 2 4323-8 ####[facility] LABCLIA [id number] [place] [address] Protein [Mass/Vol] 6.1 g/dL Low 6.3-8.0 [facility] Comment on above: Order Comment: Speci men Type: BLOOD SPECIMENOrdering Facility: [facility] Address: [address] [place] [address] Performed By: #### 2 4323-8 ####[facility] LABCLIA [id number] [place] [address] Sodium [Moles/Vol] 137 mmol/L Normal 136-144 [facility] Comment on above: Order Comment: Speci men Type: BLOOD SPECIMENOrdering Facility: [facility] Address: [address] [place] [address] Performed By: #### 2 4323-8 ####[facility] LABCLIA [id number] [place] [address] Urea nitrogen [Mass/Vol] 24 mg/dL Normal 9-24 [facility] Comment on above: Order Comment: Speci men Type: BLOOD SPECIMENOrdering Facility: [facility] Address: [address] [place] [address] Performed By: #### 2 4323-8 ####[facility] LABCLIA [id number] [place] [address] Cortshaye Koehler 05-16-20 23 Cortisol [Mass/Vol] 9.2 ug/dL Normal 4.8-19.5 [facility] Comment on above: Order Comment: Speci men Type: BLOOD SPECIMENOrdering Facility: [facility] Address: [address] [place] [address] Result Comment: Prov ided reference range is from 6-10 AM sample collection time.Cortisol Reference Range: 6-10 AM = 4.8-19.5 ug/dL, 4-8 PM = 2.5-11.9 ug/dL Performed By: #### 3 016-3, 2143-03 ####[facility] LABCLIA [id number] HbA1c (Bld)on 05-16-2023 Average glucose Estimated from glycated hemoglobin (Bld) [Mass/Vol] 94 mg/dL Normal [facility] Comment on above: Order Comment: Speci men Type: BLOOD SPECIMENOrdering Facility: [facility] Address: [address] [place] [address] Result Comment: eAG: (Estimated average glucose) is a calculated value from HgbA1c and is circulation sales representative of the average blood glucose level in the last 2-3 month period. Performed By: #### 5 5454-3 ####[facility] LABIA [id number] HbA1c (Bld) [Mass fraction] 4.9 % Normal 4.3-5.6 [facility] Comment on above: Order Comment: Speci men Type: BLOOD SPECIMENOrdering Facility: [facility] Address: [address] [place] [address] Result Comment: Amer ican Diabetes Association guidelines indicate that patients with HgbA1c in the range 5.7-6.4% are at increased risk for development of diabetes, and intervention by lifestyle modification may be beneficial. HgbA1c greater or equal to 6.5% is considered diagnostic of diabetes. Performed By: #### 5 5454-3 ####[facility] LABIA [id number] [address] [place] TSH SerPl-aCncon 05-16-2023 TSH Qn 2.580 m[IU]/L Normal 0.270-4.200 [facility] Comment on above: Order Comment: Speci men Type: BLOOD SPECIMENOrdering Facility: [facility] Address: [address] [place] [address] Performed By: #### 3 016-3, 2143-03 ####[facility] LABCLIA [id number] [facility] [place] [address] [place] Consultation Noteon 04-26-20 23 Consultation Note [id number]:127 Normal [facility] Follow-Upon 04-26-2023 Follow-Up [id number] Juan Jose Austin 1940 M Date Provider Department Center 04/26/2023 JOSESITO GARY CARD [facility] Family History Problem Relation Age of Onset Heart failure Mother Family Status - Relation Status Age at Mother Level of Service:59385 [place] OFFICE/OUTPATIENT ESTABLISHED MOD MDM 30-39 MIN Reason for Visit and Comments: Follow-up [822699] - Pt is here for PPM F/U Normal [facility] CBC W Auto Differential pane l (Bld)on 04-25-2023 Basophils (Bld) [#/Vol] 0.03 10*3/uL Normal <0.11 [facility] Comment on above: Order Comment: Speci men Type: BLOOD SPECIMENOrdering Facility: [facility] Address: [address] [address] Performed By: #### 5 7021-8 ####[facility] LABIA [id number] [place] [id number] Basophils/100 WBC (Bld) 0.5 % Normal [facility] Comment on above: Order Comment: Speci men Type: BLOOD SPECIMENOrdering Facility: [facility] Address: [address] [address] Performed By: #### 5 7021-8 ####[facility] LABCLIA [id number] [place] [address] Differential cell count method Nom (Bld) Auto Normal [facility] Comment on above: Order Comment: Speci men Type: BLOOD SPECIMENOrdering Facility: [facility] Address: [address] [address] Performed By: #### 5 7021-8 ####[facility] LABCLIA [id number] [place] [address] Eosinophils (Bld) [#/Vol] 0.31 10*3/uL Normal <0.46 [facility] Comment on above: Order Comment: Speci men Type: BLOOD SPECIMENOrdering Facility: [facility] Address: [address] [place] [address] Performed By: #### 5 7021-8 ####[facility] LABCLIA [id number] [place] [address] Eosinophils/100 WBC (Bld) 4.8 % Normal [facility] Comment on above: Order Comment: Speci men Type: BLOOD SPECIMENOrdering Facility: [facility] Address: [address] [place] [address] Performed By: #### 5 7021-8 ####[facility] LABIA [id number] [place] [address] Erythrocyte distribution width (RBC) [Ratio] 15.3 % High 11.5-15.0 [facility] Comment on above: Order Comment: Speci men Type: BLOOD SPECIMENOrdering Facility: [facility] Address: [address] [place] [address] Performed By: #### 5 7021-8 ####[facility] LABCLIA [id number] [place] [address] Hematocrit (Bld) [Volume fraction] 37.9 % Low 39.0-51.0 [facility] Comment on above: Order Comment: Speci men Type: BLOOD SPECIMENOrdering Facility: [facility] Address: [address] [place] [address] Performed By: #### 5 7021-8 ####[facility] LABCLIA [id number] [place] [address] Hemoglobin (Bld) [Mass/Vol] 12.6 g/dL Low 13.0-17.0 [facility] Comment on above: Order Comment: Speci men Type: BLOOD SPECIMENOrdering Facility: [facility] Address: [address] [address] Performed By: #### 5 7021-8 ####[facility] LABCLIA [id number] [place] [address] Immature granulocytes (Bld) [#/Vol] 10*3/uL Normal <0.10 [facility] Comment on above: Order Comment: Speci men Type: BLOOD SPECIMENOrdering Facility: [facility] Address: [address] [place] [address] Performed By: #### 5 7021-8 ####[facility] LABCLIA [id number] [place] [address] Immature granulocytes/100 WBC (Bld) 0.2 % Normal [facility] Comment on above: Order Comment: Speci men Type: BLOOD SPECIMENOrdering Facility: [facility] Address: [address] [place] [address] Performed By: #### 5 7021-8 ####[facility] LABCLIA [id number] [place] [address] Lymphocytes (Bld) [#/Vol] 0.73 10*3/uL Low 1.00-4.00 [facility] Comment on above: Order Comment: Speci men Type: BLOOD SPECIMENOrdering Facility: [facility] Address: [address] [place] [address] Performed By: #### 5 7021-8 ####[facility] LABCLIA [id number] [place] [address] Lymphocytes/100 WBC (Bld) 11.3 % Normal [facility] Comment on above: Order Comment: Speci men Type: BLOOD SPECIMENOrdering Facility: [facility] Address: [address] [place] [address] Performed By: #### 5 7021-8 ####[facility] LABCLIA [id number] [place] [address] MCH (RBC) [Entitic mass] 27.9 pg Normal 26.0-34.0 [facility] Comment on above: Order Comment: Speci men Type: BLOOD SPECIMENOrdering Facility: [facility] Address: [address] [place] [address] Performed By: #### 5 7021-8 ####[facility] LABCLIA [id number] [place] [address] MCHC (RBC) [Mass/Vol] 33.2 g/dL Normal 30.5-36.0 [facility] Comment on above: Order Comment: Speci men Type: BLOOD SPECIMENOrdering Facility: [facility] Address: [address] [place] [address] Performed By: #### 5 7021-8 ####[facility] LABCLIA [id number] [place] [address] MCV (RBC) [Entitic vol] 83.8 fL Normal 80.0-100.0 [facility] Comment on above: Order Comment: Speci men Type: BLOOD SPECIMENOrdering Facility: [facility] Address: [address] [place] [address] Performed By: #### 5 7021-8 ####[facility] LABCLIA [id number] [place] [address] Monocytes (Bld) [#/Vol] 0.55 10*3/uL Normal <0.87 [facility] Comment on above: Order Comment: Speci men Type: BLOOD SPECIMENOrdering Facility: [facility] Address: [address] [place] [address] Performed By: #### 5 7021-8 ####[facility] LABIA [id number] [place] [address] Monocytes/100 WBC (Bld) 8.5 % Normal [facility] Comment on above: Order Comment: Speci men Type: BLOOD SPECIMENOrdering Facility: [facility] Address: [address] [place] [address] Performed By: #### 5 7021-8 ####[facility] LABCLIA [id number] [place] [address] Neutrophils (Bld) [#/Vol] 4.81 10*3/uL Normal 1.45-7.50 [facility] Comment on above: Order Comment: Speci men Type: BLOOD SPECIMENOrdering Facility: [facility] Address: [address] [place] [address] Performed By: #### 5 7021-8 ####[facility] LABCLIA [id number] [place] [address] Neutrophils/100 WBC (Bld) 74.7 % Normal [facility] Comment on above: Order Comment: Speci men Type: BLOOD SPECIMENOrdering Facility: [facility] Address: [address] [place] [address] Performed By: #### 5 7021-8 ####[facility] LABCLIA [id number] [place] [address] Nucleated RBC (Bld) [#/Vol] 10*3/uL Normal <0.01 [facility] Comment on above: Order Comment: Speci men Type: BLOOD SPECIMENOrdering Facility: [facility] Address: [address] [place] [address] Performed By: #### 5 7021-8 ####[facility] LABCLIA [id number] [place] [address] Nucleated RBC/100 WBC (Bld) [Ratio] 0.0 /100 WBC Normal [facility] Comment on above: Order Comment: Speci men Type: BLOOD SPECIMENOrdering Facility: [facility] Address: [address] [place] [address] Performed By: #### 5 7021-8 ####[facility] LABCLIA [id number] [place] [address] Platelet mean volume (Bld) [Entitic vol] 8.9 fL Low 9.0-12.7 [facility] Comment on above: Order Comment: Speci men Type: BLOOD SPECIMENOrdering Facility: [facility] Address: [address] [place] [address] Performed By: #### 5 7021-8 ####[facility] LABCLIA [id number] [place] [address] Platelets (Bld) [#/Vol] 208 10*3/uL Normal 150-400 [facility] Comment on above: Order Comment: Speci men Type: BLOOD SPECIMENOrdering Facility: [facility] Address: [address] [place] [address] Performed By: #### 5 7021-8 ####[facility] LABCLIA [id number] [place] [address] RBC (Bld) [#/Vol] 4.52 10*6/uL Normal 4.20-6.00 [facility] Comment on above: Order Comment: Speci men Type: BLOOD SPECIMENOrdering Facility: [facility] Address: [address] [place] [address] Performed By: #### 5 7021-8 ####[facility] LABIA [id number] [place] [address] WBC (Bld) [#/Vol] 6.44 10*3/uL Normal 3.70-11.00 [facility] Comment on above: Order Comment: Speci men Type: BLOOD SPECIMENOrdering Facility: [facility] Address: [address] [place] [address] Performed By: #### 5 7021-8 ####[facility] LABIA [id number] [place] [address] CNOVSPon 04-25-2023 CNOVSP Normal [facility] Comprehensive metabolic 2000 panelon 04-25-2023 Albumin [Mass/Vol] 4.0 g/dL Normal 3.9-4.9 [facility] Comment on above: Order Comment: Speci men Type: BLOOD SPECIMENOrdering Facility: External Submitter Address: , , Performed By: #### 2 4323-8 ####[facility] LABCLIA [id number] [place] [address] ALP [Catalytic activity/Vol] 75 U/L Normal 38-113 [facility] Comment on above: Order Comment: Speci men Type: BLOOD SPECIMENOrdering Facility: External Submitter Address: , , Performed By: #### 2 4323-8 ####[facility] LABCLIA [id number] [place] [address] ALT [Catalytic activity/Vol] 17 U/L Normal 10-54 [facility] Comment on above: Order Comment: Speci men Type: BLOOD SPECIMENOrdering Facility: External Submitter Address: , , Performed By: #### 2 4323-8 ####[facility] LABCLIA [id number] [place] [address] Anion gap [Moles/Vol] 7 mmol/L Low 9-18 [facility] Comment on above: Order Comment: Speci men Type: BLOOD SPECIMENOrdering Facility: External Submitter Address: , , Performed By: #### 2 4323-8 ####[facility] LABCLIA [id number] [place] [address] AST [Catalytic activity/Vol] 26 U/L Normal 14-40 [facility] Comment on above: Order Comment: Speci men Type: BLOOD SPECIMENOrdering Facility: External Submitter Address: , , Performed By: #### 2 4323-8 ####[facility] LABCLIA [id number] [place] [address] Bilirubin [Mass/Vol] 0.4 mg/dL Normal 0.2-1.3 [facility] Comment on above: Order Comment: Speci men Type: BLOOD SPECIMENOrdering Facility: External Submitter Address: , , Performed By: #### 2 4323-8 ####[facility] LABCLIA [id number] [place] [address] Calcium [Mass/Vol] 8.9 mg/dL Normal 8.5-10.2 [facility] Comment on above: Order Comment: Speci men Type: BLOOD SPECIMENOrdering Facility: External Submitter Address: , , Performed By: #### 2 4323-8 ####[facility] LABIA [id number] [place] [address] Chloride [Moles/Vol] 106 mmol/L High 97-105 [facility] Comment on above: Order Comment: Speci men Type: BLOOD SPECIMENOrdering Facility: External Submitter Address: , , Performed By: #### 2 4323-8 ####[facility] LABIA [id number] [place] [address] CO2 [Moles/Vol] 26 mmol/L Normal 22-30 [facility] Comment on above: Order Comment: Speci men Type: BLOOD SPECIMENOrdering Facility: External Submitter Address: , , Performed By: #### 2 4323-8 ####[facility] LABIA [id number] [place] [address] Creatinine [Mass/Vol] 1.71 mg/dL High 0.73-1.22 [facility] Comment on above: Order Comment: Speci men Type: BLOOD SPECIMENOrdering Facility: External Submitter Address: , , Performed By: #### 2 4323-8 ####[facility] LABIA [id number] [place] [address] ESTIMATED GLOMERULAR FILTRATION RATE 39 mL/min/1.73m??? Low >=60 [facility] Comment on above: Order Comment: Speci men [...] actual GFR. Performed By: #### 2 4323-8 ####[facility] LABCLIA [id number] [place] [address] Glucose [Mass/Vol] 111 mg/dL High 74-99 [facility] Comment on above: Order Comment: Speci men Type: BLOOD SPECIMENOrdering Facility: External Submitter Address: , , Result Comment: The [place] Diabetes Association (ADA) provides guidance for cutoff [...] Standards of Medical Care in Diabetes 2016, [place] Diabetes Association. Diabetes Care. 2016.39(Suppl 1). Performed By: #### 2 4323-8 ####[facility] LABIA [id number] [place] [address] Potassium [Moles/Vol] 3.9 mmol/L Normal 3.7-5.1 [facility] Comment on above: Order Comment: Speci men Type: BLOOD SPECIMENOrdering Facility: External Submitter Address: , , Performed By: #### 2 4323-8 ####[facility] LABCLIA [id number] [place] [address] Protein [Mass/Vol] 6.0 g/dL Low 6.3-8.0 [facility] Comment on above: Order Comment: Vero barton Type: BLOOD SPECIMENOrdering Facility: External Submitter Address: , , Performed By: #### 2 4323-8 ####[facility] LABCLIA [id number] [place] [address] Sodium [Moles/Vol] 139 mmol/L Normal 136-144 [facility] Comment on above: Order Comment: Speci men Type: BLOOD SPECIMENOrdering Facility: External Submitter Address: , , Performed By: #### 2 4323-8 ####[facility] LABCLIA [id number] [place] [address] Urea nitrogen [Mass/Vol] 27 mg/dL High 9-24 [facility] Comment on above: Order Comment: Speci men Type: BLOOD SPECIMENOrdering Facility: External Submitter Address: , , Performed By: #### 2 4323-8 ####[facility] LABCLIA [id number] [place] [address] Beverly ChewBao 04-25-20 23 Cortisol [Mass/Vol] 8.8 ug/dL Normal 4.8-19.5 [facility] Comment on above: Order Comment: Speci men Type: BLOOD SPECIMENOrdering Facility: External Submitter Address: , , Result Comment: Prov ided reference range is from 6-10 AM sample collection time.Cortisol Reference Range: 6-10 AM = 4.8-19.5 ug/dL, 4-8 PM = 2.5-11.9 ug/dL Performed By: #### 3 024-7, 3053-6, 3016-3, 2143-6 ####[facility] LABCLIA [id number] [address] [facility] HbA1c (Bld)on 04-25-2023 Average glucose Estimated from glycated hemoglobin (Bld) [Mass/Vol] 97 mg/dL Normal [facility] Comment on above: Order Comment: Vero oralia Type: BLOOD SPECIMENOrdering Facility: [facility] Address: [address] [id number] Result Comment: eAG: (Estimated average glucose) is a calculated value from HgbA1c and is circulation sales representative of the average blood glucose level in the last 2-3 month period. Performed By: #### 5 5454-3 ####[facility] LABIA [id number] [place] [address] [place] HbA1c (Bld) [Mass fraction] 5.0 % Normal 4.3-5.6 [facility] Comment on above: Order Comment: Speci men Type: BLOOD SPECIMENOrdering Facility: [facility] Address: [address] [place] [address] Result Comment: [place] Diabetes Association guidelines indicate that patients with HgbA1c in the range 5.7-6.4% are at increased risk for development of diabetes, and intervention by lifestyle modification may be beneficial. HgbA1c greater or equal to 6.5% is considered diagnostic of diabetes. Performed By: #### 5 5454-3 ####[facility] [id number] [place] [address] [place] T3 SerPl-mCncon 04-25-2023 T3 [Mass/Vol] 99 ng/dL Normal 79-165 [facility] Comment on above: Order Comment: Speci men Type: BLOOD SPECIMENOrdering Facility: External Submitter Address: , , Performed By: #### 3 024-7, 3053-6, 3016-3, 2143-03 ####[facility] [id number] [address] [place] T4 Free SerPl-mCncon 023 Free T4 [Mass/Vol] 1.1 ng/dL Normal 0.9-1.7 [facility] Comment on above: Order Comment: Speci men Type: BLOOD SPECIMENOrdering Facility: External Submitter Address: , , Performed By: #### 3 024-7, 3053-6, 3016-3, 2143-03 ####[facility] LABIA [id number] [place] [address] [place] TSH SerPl-aCncon 04-25-2023 TSH Qn 2.800 m[IU]/L Normal 0.270-4.200 [facility] Comment on above: Order Comment: Speci men Type: BLOOD SPECIMENOrdering Facility: External Submitter Address: , , Performed By: #### 3 024-7, 3053-6, 3016-3, 2143-6 ####[facility] LABCLIA [id number] MALLORYMarisabel [facility] [id number] [place] CBC W Auto Differential pane l (Bld)on 04-04-2023 Basophils (Bld) [#/Vol] 0.06 10*3/uL Normal <0.11 [facility] Comment on above: Order Comment: Speci men Type: BLOOD SPECIMENOrdering Facility: [facility] Address: [address] [address] Performed By: #### 5 7021-8 ####[facility] LABCLIA [id number] [place] [address] Basophils/100 WBC (Bld) 0.9 % Normal [facility] Comment on above: Order Comment: Speci men Type: BLOOD SPECIMENOrdering Facility: [facility] Address: [address] [address] Performed By: #### 5 7021-8 ####[facility] LABCLIA [id number] [place] [address] Differential cell count method Nom (Bld) Auto Normal [facility] Comment on above: Order Comment: Speci men Type: BLOOD SPECIMENOrdering Facility: [facility] Address: [address] [address] Performed By: #### 5 7021-8 ####[facility] LABCLIA [id number] [place] [address] Eosinophils (Bld) [#/Vol] 0.32 10*3/uL Normal <0.46 [facility] Comment on above: Order Comment: Speci men Type: BLOOD SPECIMENOrdering Facility: [facility] Address: [address] [address] Performed By: #### 5 7021-8 ####[facility] LABCLIA [id number] [place] [address] Eosinophils/100 WBC (Bld) 4.8 % Normal [facility] Comment on above: Order Comment: Speci men Type: BLOOD SPECIMENOrdering Facility: [facility] Address: [address] [place] [address] Performed By: #### 5 7021-8 ####[facility] LABCLIA [id number] [place] [address] Erythrocyte distribution width (RBC) [Ratio] 15.8 % High 11.5-15.0 [facility] Comment on above: Order Comment: Speci men Type: BLOOD SPECIMENOrdering Facility: [facility] Address: [address] [place] [address] Performed By: #### 5 7021-8 ####[facility] LABIA [id number] [place] [address] Hematocrit (Bld) [Volume fraction] 38.8 % Low 39.0-51.0 [facility] Comment on above: Order Comment: Speci men Type: BLOOD SPECIMENOrdering Facility: [facility] Address: [address] [place] [address] Performed By: #### 5 7021-8 ####[facility] LABCLIA [id number] [place] [address] Hemoglobin (Bld) [Mass/Vol] 12.8 g/dL Low 13.0-17.0 [facility] Comment on above: Order Comment: Speci men Type: BLOOD SPECIMENOrdering Facility: [facility] Address: [address] [place] [address] Performed By: #### 5 7021-8 ####[facility] LABIA [id number] [place] [address] Immature granulocytes (Bld) [#/Vol] 0.03 10*3/uL Normal <0.10 [facility] Comment on above: Order Comment: Speci men Type: BLOOD SPECIMENOrdering Facility: [facility] Address: [address] [place] [address] Performed By: #### 5 7021-8 ####[facility] LABCLIA [id number] [place] [address] Immature granulocytes/100 WBC (Bld) 0.5 % Normal [facility] Comment on above: Order Comment: Speci men Type: BLOOD SPECIMENOrdering Facility: [facility] Address: [address] [place] [address] Performed By: #### 5 7021-8 ####[facility] LABIA [id number] [place] [address] Lymphocytes (Bld) [#/Vol] 0.85 10*3/uL Low 1.00-4.00 [facility] Comment on above: Order Comment: Speci men Type: BLOOD SPECIMENOrdering Facility: [facility] Address: [address] [place] [address] Performed By: #### 5 7021-8 ####[facility] LABIA [id number] [place] [address] Lymphocytes/100 WBC (Bld) 12.8 % Normal [facility] Comment on above: Order Comment: Speci men Type: BLOOD SPECIMENOrdering Facility: [facility] Address: [address] [place] [address] Performed By: #### 5 7021-8 ####[facility] LABCLIA [id number] [place] [address] MCH (RBC) [Entitic mass] 27.8 pg Normal 26.0-34.0 [facility] Comment on above: Order Comment: Speci men Type: BLOOD SPECIMENOrdering Facility: [facility] Address: [address] [place] [address] Performed By: #### 5 7021-8 ####[facility] LABIA [id number] [place] [address] MCHC (RBC) [Mass/Vol] 33.0 g/dL Normal 30.5-36.0 [facility] Comment on above: Order Comment: Speci men Type: BLOOD SPECIMENOrdering Facility: [facility] Address: [address] [place] [address] Performed By: #### 5 7021-8 ####[facility] LABCLIA [id number] [place] [address] MCV (RBC) [Entitic vol] 84.2 fL Normal 80.0-100.0 [facility] Comment on above: Order Comment: Speci men Type: BLOOD SPECIMENOrdering Facility: [facility] Address: [address] [place] [address] Performed By: #### 5 7021-8 ####[facility] LABCLIA [id number] [place] [address] Monocytes (Bld) [#/Vol] 0.48 10*3/uL Normal <0.87 [facility] Comment on above: Order Comment: Speci men Type: BLOOD SPECIMENOrdering Facility: [facility] Address: [address] [place] [address] Performed By: #### 5 7021-8 ####[facility] LABCLIA [id number] [place] [address] Monocytes/100 WBC (Bld) 7.3 % Normal [facility] Comment on above: Order Comment: Speci men Type: BLOOD SPECIMENOrdering Facility: [facility] Address: [address] [place] [address] Performed By: #### 5 7021-8 ####[facility] LABCLIA [id number] [place] [address] Neutrophils (Bld) [#/Vol] 4.88 10*3/uL Normal 1.45-7.50 [facility] Comment on above: Order Comment: Speci men Type: BLOOD SPECIMENOrdering Facility: [facility] Address: [address] [address] Performed By: #### 5 7021-8 ####[facility] LABCLIA [id number] [place] [address] Neutrophils/100 WBC (Bld) 73.7 % Normal [facility] Comment on above: Order Comment: Speci men Type: BLOOD SPECIMENOrdering Facility: [facility] Address: [address] [place] [address] Performed By: #### 5 7021-8 ####[facility] LABCLIA [id number] [place] [address] Nucleated RBC (Bld) [#/Vol] 10*3/uL Normal <0.01 [facility] Comment on above: Order Comment: Speci men Type: BLOOD SPECIMENOrdering Facility: [facility] Address: [address] [place] [address] Performed By: #### 5 7021-8 ####[facility] LABCLIA [id number] [place] [address] Nucleated RBC/100 WBC (Bld) [Ratio] 0.0 /100 WBC Normal [facility] Comment on above: Order Comment: Speci men Type: BLOOD SPECIMENOrdering Facility: [facility] Address: [address] [place] [address] Performed By: #### 5 7021-8 ####[facility] LABCLIA [id number] [place] [address] Platelet mean volume (Bld) [Entitic vol] 8.8 fL Low 9.0-12.7 [facility] Comment on above: Order Comment: Speci men Type: BLOOD SPECIMENOrdering Facility: [facility] Address: [address] [place] [address] Performed By: #### 5 7021-8 ####[facility] LABCLIA [id number] [place] [address] Platelets (Bld) [#/Vol] 213 10*3/uL Normal 150-400 [facility] Comment on above: Order Comment: Speci men Type: BLOOD SPECIMENOrdering Facility: [facility] Address: [address] [place] [address] Performed By: #### 5 7021-8 ####[facility] LABCLIA [id number] [place] [address] RBC (Bld) [#/Vol] 4.61 10*6/uL Normal 4.20-6.00 [facility] Comment on above: Order Comment: Speci men Type: BLOOD SPECIMENOrdering Facility: [facility] Address: [address] [place] [address] Performed By: #### 5 7021-8 ####[facility] LABIA [id number] [place] [address] WBC (Bld) [#/Vol] 6.62 10*3/uL Normal 3.70-11.00 [facility] Comment on above: Order Comment: Speci men Type: BLOOD SPECIMENOrdering Facility: [facility] Address: [address] [place] [address] Performed By: #### 5 7021-8 ####[facility] LABIA [id number] [place] [address] CNOVSPon 04-04-2023 CNOVSP Normal [facility] Comprehensive metabolic 2000 panelon 04-04-2023 Albumin [Mass/Vol] 4.4 g/dL Normal 3.9-4.9 [facility] Comment on above: Order Comment: Speci men Type: BLOOD SPECIMENOrdering Facility: [facility] Address: [address] [place] [address] Performed By: #### 2 4323-8 ####[facility] LABIA [id number] [place] [address] ALP [Catalytic activity/Vol] 64 U/L Normal 38-113 [facility] Comment on above: Order Comment: Speci men Type: BLOOD SPECIMENOrdering Facility: [facility] Address: [address] [address] Performed By: #### 2 4323-8 ####[facility] LABCLIA [id number] [place] [address] ALT [Catalytic activity/Vol] 13 U/L Normal 10-54 [facility] Comment on above: Order Comment: Speci men Type: BLOOD SPECIMENOrdering Facility: [facility] Address: [address] [address] Performed By: #### 2 4323-8 ####[facility] LABCLIA [id number] [place] [address] Anion gap [Moles/Vol] 10 mmol/L Normal 9-18 [facility] Comment on above: Order Comment: Speci men Type: BLOOD SPECIMENOrdering Facility: [facility] Address: [address] [place] [address] Performed By: #### 2 4323-8 ####[facility] LABCLIA [id number] [place] [address] AST [Catalytic activity/Vol] 23 U/L Normal 14-40 [facility] Comment on above: Order Comment: Speci men Type: BLOOD SPECIMENOrdering Facility: [facility] Address: [address] [address] Performed By: #### 2 4323-8 ####[facility] LABCLIA [id number] [place] [address] Bilirubin [Mass/Vol] 0.5 mg/dL Normal 0.2-1.3 [facility] Comment on above: Order Comment: Speci men Type: BLOOD SPECIMENOrdering Facility: [facility] Address: [address] [place] [address] Performed By: #### 2 4323-8 ####[facility] LABCLIA [id number] [place] [address] Calcium [Mass/Vol] 9.3 mg/dL Normal 8.5-10.2 [facility] Comment on above: Order Comment: Speci men Type: BLOOD SPECIMENOrdering Facility: [facility] Address: [address] [address] Performed By: #### 2 4323-8 ####[facility] LABCLIA [id number] [place] [address] Chloride [Moles/Vol] 104 mmol/L Normal 97-105 [facility] Comment on above: Order Comment: Speci men Type: BLOOD SPECIMENOrdering Facility: [facility] Address: [address] [place] [address] Performed By: #### 2 4323-8 ####[facility] LABCLIA [id number] [place] [address] CO2 [Moles/Vol] 26 mmol/L Normal 22-30 [facility] Comment on above: Order Comment: Speci men Type: BLOOD SPECIMENOrdering Facility: [facility] Address: [address] [place] [address] Performed By: #### 2 4323-8 ####[facility] LABCLIA [id number] [place] [address] Creatinine [Mass/Vol] 2.05 mg/dL High 0.73-1.22 [facility] Comment on above: Order Comment: Speci men Type: BLOOD SPECIMENOrdering Facility: [facility] Address: [address] [place] [address] Performed By: #### 2 4323-8 ####[facility] LABCLIA [id number] [place] [address] ESTIMATED GLOMERULAR FILTRATION RATE 32 mL/min/1.73m??? Low >=60 [facility] Comment on above: Order Comment: Speci men Type: BLOOD SPECIMENOrdering Facility: [facility] Address: [address] [place] [address] Result Comment: Viviana mated Glomerular Filtration Rate [...] actual GFR. Performed By: #### 2 4323-8 ####[facility] LABCLIA [id number] [place] [address] Glucose [Mass/Vol] 127 mg/dL High 74-99 [facility] Comment on above: Order Comment: Specronnie barton Type: BLOOD SPECIMENOrdering Facility: [facility] Address: [address] [place], [place] [id number] Result Comment: The [place] Diabetes Association (ADA) provides guidance for cutoff [...] Standards of Medical Care in Diabetes 2016, [place] [employer]. Diabetes Care. 2016.39(Suppl 1). Performed By: #### 2 4323-8 ####[facility] LABCLIA [id number] [place] [address] Potassium [Moles/Vol] 3.9 mmol/L Normal 3.7-5.1 [facility] Comment on above: Order Comment: Vero barton Type: BLOOD SPECIMENOrdering Facility: [facility] Address: [address] [place] [id number] Performed By: #### 2 4323-8 ####[facility] LABCLIA [id number] [place] [address] Protein [Mass/Vol] 6.3 g/dL Normal 6.3-8.0 [facility] Comment on above: Order Comment: Speci men Type: BLOOD SPECIMENOrdering Facility: [facility] Address: [address] [address] Performed By: #### 2 4323-8 ####[facility] LABCLIA [id number] [place] [address] Sodium [Moles/Vol] 140 mmol/L Normal 136-144 [facility] Comment on above: Order Comment: Speci men Type: BLOOD SPECIMENOrdering Facility: [facility] Address: [address] [place] [address] Performed By: #### 2 4323-8 ####[facility] LABCLIA [id number] [place] [address] Urea nitrogen [Mass/Vol] 26 mg/dL High 9-24 [facility] Comment on above: Order Comment: Speci men Type: BLOOD SPECIMENOrdering Facility: [facility] Address: [address] [address] Performed By: #### 2 4323-8 ####[facility] LABCLIA [id number] [place] [address] Beverly Keisha-Celena 04-04-20 23 Cortisol [Mass/Vol] 9.9 ug/dL Normal 4.8-19.5 [facility] Comment on above: Order Comment: Speci men Type: BLOOD SPECIMENOrdering Facility: [facility] Address: [address] [place] [address] Result Comment: Prov ided reference range is from 6-10 AM sample collection time.Cortisol Reference Range: 6-10 AM = 4.8-19.5 ug/dL, 4-8 PM = 2.5-11.9 ug/dL Performed By: #### 3 016-3, 2143-6 ####[facility] LABCLIA [id number] [facility] SERVICESDESK [id number] [place] HbA1c (Bld)on 04-04-2023 Average glucose Estimated from glycated hemoglobin (Bld) [Mass/Vol] 100 mg/dL Normal [facility] Comment on above: Order Comment: Vero barton Type: BLOOD SPECIMENOrdering Facility: [facility] Address: [address] [place] [address] Result Comment: eAG: (Estimated average glucose) is a calculated value from HgbA1c and is circulation sales representative of the average blood glucose level in the last 2-3 month period. Performed By: #### 5 5454-3 ####[facility] LABIA [id number] [place] [address] [place] HbA1c (Bld) [Mass fraction] 5.1 % Normal 4.3-5.6 [facility] Comment on above: Order Comment: Vero barton Type: BLOOD SPECIMENOrdering Facility: [facility] Address: [address] [place] [address] Result Comment: Amer ican Diabetes Association guidelines indicate that patients with HgbA1c in the range 5.7-6.4% are at increased risk for development of diabetes, and intervention by lifestyle modification may be beneficial. HgbA1c greater or equal to 6.5% is considered diagnostic of diabetes. Performed By: #### 5 5454-3 ####[facility] LABIA [id number] [address] [place] TSH SerPl-aCncon 04-04-2023 TSH Qn 2.620 m[IU]/L Normal 0.270-4.200 [facility] Comment on above: Order Comment: Vero barton Type: BLOOD SPECIMENOrdering Facility: [facility] Address: [address] [place] [address] Performed By: #### 3 016-3, 2143-6 ####[facility] LABIA [id number] [address] OF [place] EDNURSon 03-27-2023 EDNURS Mode of arrival (squad #, walk in, police, etc): [facility] Chief complaint(s): Dizziness Arrival Note (brief scenario, treatment 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 Pt got up from the dinner table to put his plate in the sink when he felt dizzy. When pt sat down, it resolved. He got up again with the same dizziness. It went away as he was getting in the vehicle to go to the ER in [place]. Pt denies any other symptoms since. Orthostatics were negative at [facility]. GCS 15 Normal [facility] EDPROVon 03-27-2023 EDPROV HPI Chief [...] was evaluated in the emergency department at [facility] where full cardiac work-up was performed. Patient was noted to have mild elevation of his troponin. No changes on EKG. Patient was to have pacemaker interrogated by [employer] however circulation sales representative was not available at that time [...] 0334 Review of patient's medical records from [place] shows EKG which demonstrates left bundle branch [...] arrhythmia or bradycardia, dehydration, or orthostatic [NF] 1277 spoke to Civo who interrogated device. 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 No signs of any arrhythmias or bradycardic episodes. Device working appropriately. At this time patient's in no acute distress says he feels fine. Troponin was repeated as initial troponin was noted to be mildly elevated. Repeat noted to be 0.07. Will consult cardiology for further recommendations [NF] 8728 Spoke to chef broiler or fry Dr. Roach. Reviewed patient's initial presentation (more content not included)... Normal [facility] Office Visiton 03-27-2023 Follow-up visit [id number] Juan Jose Autsin 1940 M Date Provider Department Center 03/27/2023 [id number] JAMES CARD [facility] Family History Problem Relation Age of Onset Heart failure Mother Family Status - Relation Status Age at Mother Level of Service:[address]17 [place] POSTOP FOLLOW UP VISIT RELATED TO ORIGINAL PX Normal [facility] TROPONIN Ion 03-27-2023 Troponin I.cardiac [Mass/Vol] 0.07 ng/mL High 0.00-0.04 [facility] Comment on above: Performed By: #### L [id number] ####[facility] ([facility])[address] [place] [address] 30on 03-19-2023 30 The patient is Moderately [...] and behaviors that affect risk of falls [place] fall precautions as indicated by assessment Educate [...] and prevent overall improvement and discharge Normal [facility] 30 Problem: Pain - Adul [...] make progress toward the following goals. Normal [facility] BASIC METABOLIC PANELon 06-0 Anion gap [Moles/Vol] 9 mmol/L Normal 7-20 [facility] Comment on above: Performed By: #### L [id number] ####[facility] ([facility])[address] [place] [address] Calcium [Mass/Vol] 8.7 mg/dL Normal 8.6-10.3 [facility] Comment on above: Performed By: #### L [id number] ####[facility] ([facility])[address] [place] [address] Chloride [Moles/Vol] 111 mmol/L High 98-107 [facility] Comment on above: Performed By: #### L [id number] ####[facility] ([facility])[address] [place] [address] CO2 [Moles/Vol] 24 mmol/L Normal 21-31 [facility] Comment on above: Performed By: #### L [id number] ####[facility] ([facility])[address] [place] [address] Creatinine [Mass/Vol] 1.95 mg/dL High 0.70-1.30 [facility] Comment on above: Performed By: #### L [id number] ####[facility] ([facility])[address] [place] [address] GLOMERULAR FILTRATION RATE ML/MIN/1.73 SQ M.PREDICTED 33.5 mL/min/1.73m*2 Low >60.0 [facility] Comment on above: Result Comment: [facility]???s estimated glomerular filtration rate (eGFR) [...] of individuals. Performed By: #### L [id number] ####[facility] ([facility])[address] [place] [address] Glucose [Mass/Vol] 111 mg/dL High 70-100 [facility] Comment on above: Performed By: #### L [id number] ####[facility] ([facility])[address] [place] [address] Potassium [Moles/Vol] 4.2 mmol/L Normal 3.5-5.1 [facility] Comment on above: Performed By: #### L [id number] ####[facility] ([facility])[address] [place] [address] Sodium [Moles/Vol] 140 mmol/L Normal 136-145 [facility] Comment on above: Performed By: #### L [id number] ####[facility] ([facility])[address] [place] [address] Urea nitrogen [Mass/Vol] 36 mg/dL High 7-25 [facility] Comment on above: Performed By: #### L [id number] ####[facility] ([facility])[address] [place] [address] UREA NITROGEN/CREATININE (MASS RATIO) IN SER/PLAS 18.5 Normal [facility] Comment on above: Performed By: #### L [id number] ####[facility] [place] [address] CBCon 03-19-2023 Erythrocyte distribution width (RBC) [Ratio] 14.8 % Normal 11.5-15.0 [facility] Comment on above: Performed By: #### L [id number] ####[facility] ([facility] [place] [address] ERYTHROCYTE MEAN CORPUSCULAR HEMOGLOBIN CONCENTRATION (G/DL) BY AUTOMATED 33.9 g/dL Normal 32.0-35.0 [facility] Comment on above: Performed By: #### L [id number] ####[facility] ([facility] [place] [address] Hematocrit (Bld) [Volume fraction] 34.8 % Low 39.0-55.0 [facility] Comment on above: Performed By: #### L [id number] ####[facility] ([facility])[address] [place] [address] Hemoglobin (Bld) [Mass/Vol] 11.8 g/dL Low 13.0-17.0 [facility] Comment on above: Performed By: #### L [id number] ####[facility] ([facility])[address] [place] [address] MCH (RBC) [Entitic mass] 27.9 pg Normal 27.0-33.0 [facility] Comment on above: Performed By: #### L [id number] ####[facility] ([facility])[address] [place] [address] MCV (RBC) [Entitic vol] 82.3 fL Normal 82.0-98.0 [facility] Comment on above: Performed By: #### L [id number] ####[facility] ([facility])[address] [place] [address] PLATELETS (10*3/UL) IN BLOOD AUTOMATED COUNT 180 10*3/uL Normal 150-400 [facility] Comment on above: Performed By: #### L [id number] ####[facility] ([facility])[address] [place] [address] RBC (Bld) [#/Vol] 4.23 10*6/uL Normal 4.20-5.70 [facility] Comment on above: Performed By: #### L [id number] ####[facility] ([facility])[address] [place] [address] WBC (Bld) [#/Vol] 6.85 10*3/uL Normal 4.00-10.60 [facility] Comment on above: Performed By: #### L [id number] ####[facility] ([facility])[address] [place] [address] NURSNOTEon 03-19-2023 NURSNOTE Pt discharged home with junior by car. Normal [facility] 30on 03-18-2023 30 Daily Case [...] Reason for OT? Answer: weakness 03/18/23 1108 [facility] 30 The patient is Moderately Stable - Low risk of patient condition declining or worsening The patient's goals for the shift include comfort and rest The clinical goals for the shift include monitor vitals [facility] 30 Problem: Pain - Adul t Goal: [...] to make progress toward the following goals. [facility] HPon 03-18-2023 HPI: Juan Jose Austin is [...] Value Ventricular Rate 39 Atrial Rate 39 [place] Interval 342 QRS DURATION 156 QT Interval 504 QTC CALCULATION(BAZETT) 405 P [place] 17 R-[place] -84 T Wave [place] 10 Impression Marked sinus bradycardia with 1st degree A-V block Left axis deviation Right bundle branch block Inferior infarct , age undetermined Anterior infarct , age undetermined Abnormal ECG No previous ECGs (more content not included)... Normal [facility] 30on 03-17-2023 30 The patient is Moderately Stable - Low risk of patient condition declining or worsening The patient's goals for the shift include Comfort The clinical goals for the shift include VSS Normal [facility] 30 The patient is Moderately Stable - Low risk of patient condition declining or worsening The patient's goals for the shift include Comfort The clinical goals for the shift include VSS Normal [facility] APTTon 03-17-2023 ACTIVATED PARTIAL THROMBOPLASTIN TIME IN PPP BY COAGULATION ASSAY 26.6 Seconds Normal 25.0-35.0 [facility] Comment on above: Result Comment: Clin ical significance of the APTT is questionable in the presence of heparin. Performed By: #### L [id number] ####[facility] ([facility])[address] [place] [address] B-TYPE NATRIURETIC PEPTIDEon 03-17-2023 Natriuretic peptide B (Bld) [Mass/Vol] 484 pg/mL High 0-100 [facility] Comment on above: Performed By: #### L [id number] ####[facility] ([facility])[address] [place] [address] CBC WITH AUTO DIFFERENTIALon 03-17-2023 Basophils (Bld) [#/Vol] 0.03 10*3/uL Normal 0.00-0.20 [facility] Comment on above: Performed By: #### L [id number] ####[facility] ([facility])[address] [place] [address] Basophils/100 WBC (Bld) 0.6 % Normal 0.0-1.0 [facility] Comment on above: Performed By: #### L [id number] ####[facility] ([facility])[address] [place] [address] Eosinophils (Bld) [#/Vol] 0.13 10*3/uL Normal 0.00-0.50 [facility] Comment on above: Performed By: #### L [id number] ####[facility] ([facility])[address] [place] [address] Eosinophils/100 WBC (Bld) 2.6 % Normal 0.0-6.0 [facility] Comment on above: Performed By: #### L [id number] ####[facility] ([facility])[address] [place] [address] Erythrocyte distribution width (RBC) [Ratio] 14.9 % Normal 11.5-15.0 [facility] Comment on above: Performed By: #### L [id number] ####[facility] ([facility])[address] [place] [address] ERYTHROCYTE MEAN CORPUSCULAR HEMOGLOBIN CONCENTRATION (G/DL) BY AUTOMATED 32.4 g/dL Normal 32.0-35.0 [facility] Comment on above: Performed By: #### L [id number] ####[facility] ([facility])[address] [place] [address] Hematocrit (Bld) [Volume fraction] 36.4 % Low 39.0-55.0 [facility] Comment on above: Performed By: #### L [id number] ####[facility] ([facility])[address] [place] [address] Hemoglobin (Bld) [Mass/Vol] 11.8 g/dL Low 13.0-17.0 [facility] Comment on above: Performed By: #### L [id number] ####[facility] ([facility])[address] [place] [address] Immature granulocytes (Bld) [#/Vol] 0.02 10*3/uL Normal 0.00-0.20 [facility] Comment on above: Performed By: #### L [id number] ####[facility] ([facility] [place] [address] Immature granulocytes/100 WBC (Bld) 0.4 % Normal 0.0-1.0 [facility] Comment on above: Performed By: #### L [id number] ####[facility] ([facility] [place] [address] Lymphocytes (Bld) [#/Vol] 0.72 10*3/uL Low 1.20-4.00 [facility] Comment on above: Performed By: #### L [id number] ####[facility] ([facility] [place] [address] Lymphocytes/100 WBC (Bld) 14.6 % Low 20.0-45.0 [facility] Comment on above: Performed By: #### L [id number] ####[facility] ([facility] [place] [address] MCH (RBC) [Entitic mass] 27.3 pg Normal 27.0-33.0 [facility] Comment on above: Performed By: #### L [id number] ####[facility] ([facility])[address] [place] [address] MCV (RBC) [Entitic vol] 84.1 fL Normal 82.0-98.0 [facility] Comment on above: Performed By: #### L [id number] ####[facility] ([facility])[address] [place] [address] Monocytes (Bld) [#/Vol] 0.39 10*3/uL Normal 0.10-1.00 [facility] Comment on above: Performed By: #### L [id number] ####[facility] ([facility])[address] [place] [address] Monocytes/100 WBC (Bld) 7.9 % Normal 5.0-12.0 [facility] Comment on above: Performed By: #### L [id number] ####[facility] ([facility])[address] [place] [address] Neutrophils (Bld) [#/Vol] 3.65 10*3/uL Normal 1.60-7.60 [facility] Comment on above: Performed By: #### L [id number] ####[facility] ([facility])[address] [place] [address] Neutrophils/100 WBC (Bld) 73.9 % High 40.0-72.0 [facility] Comment on above: Performed By: #### L [id number] ####[facility] ([facility])[address] [place] [address] NRBC (PER 100 WBCS) BY AUTOMATED COUNT 0.0 % Normal 0 [facility] Comment on above: Performed By: #### L [id number] ####[facility] ([facility])[address] [place] [address] PLATELETS (10*3/UL) IN BLOOD AUTOMATED COUNT 172 10*3/uL Normal 150-400 [facility] Comment on above: Performed By: #### L [id number] ####[facility] ([facility])[address] [place] [address] RBC (Bld) [#/Vol] 4.33 10*6/uL Normal 4.20-5.70 [facility] Comment on above: Performed By: #### L [id number] ####[facility] ([facility])[address] [place], [place] [address] WBC (Bld) [#/Vol] 4.94 10*3/uL Normal 4.00-10.60 [facility] Comment on above: Performed By: #### L [id number] ####[facility] ([facility] [place] [address] COMPREHENSIVE METABOLIC PANE Taj 03-17-2023 Albumin [Mass/Vol] 4.2 g/dL Normal 3.5-5.7 [facility] Comment on above: Performed By: #### L [id number] ####[facility] ([facility])[address] [place] [address] ALP [Catalytic activity/Vol] 61 U/L Normal 34-104 [facility] Comment on above: Performed By: #### L [id number] ####[facility] ([facility])[address] [place] [address] ALT [Catalytic activity/Vol] 14 U/L Normal 7-52 [facility] Comment on above: Performed By: #### L [id number] ####[facility] ([facility])[address] [place] [address] Anion gap [Moles/Vol] 14 mmol/L Normal 7-20 [facility] Comment on above: Performed By: #### L [id number] ####[facility] ([facility])[address] [place] [address] AST [Catalytic activity/Vol] 17 U/L Normal 13-39 [facility] Comment on above: Performed By: #### L [id number] ####[facility] ([facility])[address] [place] [address] Bilirubin [Mass/Vol] 0.6 mg/dL Normal 0.3-1.0 [facility] Comment on above: Performed By: #### L [id number] ####[facility] ([facility])[address] [place] [address] Calcium [Mass/Vol] 9.0 mg/dL Normal 8.6-10.3 [facility] Comment on above: Performed By: #### L [id number] ####[facility] ([facility])[address] [place] [address] Chloride [Moles/Vol] 108 mmol/L High 98-107 [facility] Comment on above: Performed By: #### L [id number] ####[facility] ([facility])[address] [place] [address] CO2 [Moles/Vol] 20 mmol/L Low 21-31 [facility] Comment on above: Performed By: #### L [id number] ####[facility] ([facility])[address] [place] [address] Creatinine [Mass/Vol] 2.26 mg/dL High 0.70-1.30 [facility] Comment on above: Performed By: #### L [id number] ####[facility] ([facility])[address] [place] [address] GLOMERULAR FILTRATION RATE ML/MIN/1.73 SQ M.PREDICTED 28.1 mL/min/1.73m*2 Low >60.0 [facility] Comment on above: Result Comment: [facility]???s estimated glomerular filtration rate (eGFR) [...] of individuals. Performed By: #### L [id number] ####[facility] ([facility])[address] [place] [address] Glucose [Mass/Vol] 158 mg/dL High 70-100 [facility] Comment on above: Performed By: #### L [id number] ####[facility] ([facility])[address] [place] [address] Potassium [Moles/Vol] 4.2 mmol/L Normal 3.5-5.1 [facility] Comment on above: Performed By: #### L [id number] ####[facility] ([facility])[address] [place] [address] Protein [Mass/Vol] 6.3 g/dL Normal 6.0-8.3 [facility] Comment on above: Performed By: #### L [id number] ####[facility] ([facility])[address] [place] [address] Sodium [Moles/Vol] 138 mmol/L Normal 136-145 [facility] Comment on above: Performed By: #### L [id number] ####[facility] ([facility])[address] [place] [address] Urea nitrogen [Mass/Vol] 42 mg/dL High 7-25 [facility] Comment on above: Performed By: #### L [id number] ####[facility] ([facility])[address] [place] [address] UREA NITROGEN/CREATININE (MASS RATIO) IN SER/PLAS 18.6 Normal [facility] Comment on above: Performed By: #### L [id number] ####[facility] ([facility])[address] [place] [address] Albumin [Mass/Vol] 3.8 g/dL Normal 3.5-5.7 [facility] Comment on above: Performed By: #### L [id number] ####[facility] ([facility])[address] [place] [address] ALP [Catalytic activity/Vol] 58 U/L Normal 34-104 [facility] Comment on above: Performed By: #### L [id number] ####[facility] ([facility])[address] [place] [address] ALT [Catalytic activity/Vol] 12 U/L Normal 7-52 [facility] Comment on above: Performed By: #### L [id number] ####[facility] ([facility])[address] [place] [address] Anion gap [Moles/Vol] 10 mmol/L Normal 7-20 [facility] Comment on above: Performed By: #### L [id number] ####[facility] ([facility])[address] [place] [address] AST [Catalytic activity/Vol] 15 U/L Normal 13-39 [facility] Comment on above: Performed By: #### L [id number] ####[facility] ([facility])[address] [place] [address] Bilirubin [Mass/Vol] 0.4 mg/dL Normal 0.3-1.0 [facility] Comment on above: Performed By: #### L [id number] ####[facility] [place] [address] Calcium [Mass/Vol] 8.7 mg/dL Normal 8.6-10.3 [facility] Comment on above: Performed By: #### L [id number] ####[facility] [place] [address] Chloride [Moles/Vol] 110 mmol/L High 98-107 [facility] Comment on above: Performed By: #### L [id number] ####[facility] [place] [address] CO2 [Moles/Vol] 24 mmol/L Normal 21-31 [facility] Comment on above: Performed By: #### L [id number] ####[facility] [place] [address] Creatinine [Mass/Vol] 2.26 mg/dL High 0.70-1.30 [facility] Comment on above: Performed By: #### L [id number] ####[facility] [place] [address] GLOMERULAR FILTRATION RATE ML/MIN/1.73 SQ M.PREDICTED 28.1 mL/min/1.73m*2 Low >60.0 [facility] Comment on above: Result Comment: [facility]???s estimated glomerular filtration rate (eGFR) [...] of individuals. Performed By: #### L [id number] ####[facility] [place] [address] Glucose [Mass/Vol] 110 mg/dL High 70-100 [facility] Comment on above: Performed By: #### L [id number] ####[facility] [place] [address] Potassium [Moles/Vol] 4.3 mmol/L Normal 3.5-5.1 [facility] Comment on above: Performed By: #### L [id number] ####[facility] ([facility])[address] [place] [address] Protein [Mass/Vol] 5.4 g/dL Low 6.0-8.3 [facility] Comment on above: Performed By: #### L AB17 ####[facility] ([facility])[address] [place] [address] Sodium [Moles/Vol] 140 mmol/L Normal 136-145 [facility] Comment on above: Performed By: #### L [id number] ####[facility] ([facility])[address] [place] [address] Urea nitrogen [Mass/Vol] 40 mg/dL High 7-25 [facility] Comment on above: Performed By: #### L [id number] ####[facility] ([facility])[address] [place] [address] UREA NITROGEN/CREATININE (MASS RATIO) IN SER/PLAS 17.7 Normal [facility] Comment on above: Performed By: #### L [id number] ####[facility] ([facility])[address] [place] [address] CONSULTon 03-17-2023 CONSULT - Attestation signed by [...] ???C (97 (more content not included)... Normal [facility] HEMOGLOBIN A1Con 03-17-2023 Glucose [Mass/Vol] 100 mg/dL Normal [facility] Comment on above: Performed By: #### L AB90 ####[facility] ([place])[address] [place] [address] HbA1c (Bld) [Mass fraction] 5.1 % Normal 4.0-6.0 [facility] Comment on above: Performed By: #### L AB90 ####[facility] ([place])[address] [place] [address] LACTIC ACID WITH 4 HOUR REFL EXon 03-17-2023 LACTATE (MMOL/L) IN SER/PLAS 0.7 mmol/L Normal 0.5-2.2 [facility] Comment on above: Performed By: #### L [id number] ####[facility] ([place])[address] [place] [address] LIPID PANELon 03-17-2023 CHOL/HDL 3.1 mg/dL Normal [facility] Comment on above: Performed By: #### L [id number] ####[facility] ([place])[address] [place] [address] Cholesterol [Mass/Vol] 124 mg/dL Normal 120-200 [facility] Comment on above: Performed By: #### L AB18 ####[facility] ([facility])[address] [place] [address] Magnesium [Mass/Vol] 138 mg/dL Normal 40-149 [facility] Comment on above: Result Comment: TRIG LYCERIDE REFERENCE RANGE: 20 YEARS AND OLDER CARDIOVASCULAR RISK LESS THAN 150 mg/dL LOW RISK 150 TO 199 mg/dL BORDERLINE RISK 200 mg/dL AND GREATER HIGH RISK Performed By: #### L AB18 ####[facility] ([facility])[address] [place] [address] Magnesium [Mass/Vol] 56 mg/dL Normal 0-160 [facility] Comment on above: Performed By: #### L AB18 ####[facility] ([facility])[address] [place] [address] Magnesium [Mass/Vol] 40 mg/dL Normal 23-92 [facility] Comment on above: Performed By: #### L AB18 ####[facility] ([facility])[address] [place] [address] NON HDL CHOL. (LDL+VLDL) 84 Normal [facility] Comment on above: Performed By: #### L AB18 ####[facility] ([facility])[address] [place] [address] TOTAL VLDL-C 28 mg/dL Normal 0-40 [facility] Comment on above: Performed By: #### L AB18 ####[facility] ([facility])[address] [place] [address] MAGNESIUMon 03-17-2023 Magnesium [Mass/Vol] 1.7 mg/dL Low 1.9-2.7 [facility] Comment on above: Performed By: #### L [id number] ####[facility] ([facility])[address] [place] [address] PHOSPHORUSon 03-17-2023 Magnesium [Mass/Vol] 3.7 mg/dL Normal 2.5-5.0 [facility] Comment on above: Performed By: #### L [id number] ####[facility] ([facility])[address] [place] [address] PROTIME-INRon 03-17-2023 INR IN PPP BY COAGULATION ASSAY 1.07 Normal 0.90-1.10 [facility] Comment on above: Result Comment: [...] CHEST 1995;108:231S-246S. Performed By: #### L [id number] ####[facility] [employer])[address] [place] [address] PROTHROMBIN TIME (PT) IN PPP BY COAGULATION ASSAY 13.9 Seconds Normal 12.3-14.8 [facility] Comment on above: Performed By: #### L [id number] ####[facility] ([facility])[address] [place] [address] TROPONIN Ion 03-17-2023 Troponin I.cardiac [Mass/Vol] 0.06 ng/mL High 0.00-0.04 [facility] Comment on above: Performed By: #### L [id number] ####[facility] ([place])[address] [place] [address] Troponin I.cardiac [Mass/Vol] 0.06 ng/mL High 0.00-0.04 [facility] Comment on above: Performed By: #### L [id number] ####[facility] ([facility])[address] [place] [address] Troponin I.cardiac [Mass/Vol] 0.05 ng/mL High 0.00-0.04 [facility] Comment on above: Performed By: #### L [id number] ####[facility] ([facility])[address] [place] [address] TSH3 REFLEX TO FT4on 023 THYROTROPIN (MIU/L) IN SER/PLAS BY DETECTION LIMIT <= 0.05 MIU/L 2.52 mIU/L Normal 0.34-5.60 [facility] Comment on above: Performed By: #### L [id number] ####[facility] ([facility])[address] [place] [address] Office Visiton 03-15-2023 Follow-up visit [id number] Juan Jose Austin 1940 M Date Provider Department Center 03/15/2023 JONATHAN BERKOWITZ [facility] Family History Problem Relation Age of Onset Heart failure Mother Family Status - Relation Status Age at Mother Level of Service:[address] [place] OFFICE/OUTPATIENT ESTABLISHED MOD MDM 30-39 MIN Normal [facility] BNPon 03-10-2023 Natriuretic peptide B (Bld) [Mass/Vol] 1490.0 pg/mL Normal <=1,800.0 [facility] Comment on above: Performed By: #### C K, HSTROPN, CMP, BNP #### [facility] [address] [place] [address] Dr. Tan Oliveros CBC AUTO DIFFon 03-10-2023 BASO # 0.1 103/ul Normal 0.0-0.1 [facility] Comment on above: Performed By: #### C K, HSTROPN, CMP, BNP #### [facility] [address] [address] [address] Tan Oliveros Basophils/100 WBC (Bld) 0.9 % Normal 0.2-2.[address] [facility] Comment on above: Performed By: #### C K, HSTROPN, CMP, BNP #### [facility] [address] [place] [address] Dr. Tan Oliveros EO # 0.1 103/ul Normal 0.0-0.[address] [facility] Comment on above: Performed By: #### C K, HSTROPN, CMP, BNP #### [facility] [address] [place] [address] Dr. Tan Oliveros Eosinophils/100 WBC (Bld) 1.6 % Normal 0.9-7.[address] [facility] Comment on above: Performed By: #### C K, HSTROPN, CMP, BNP #### [facility] [address] [place] [address] Dr. Tan Oliveros Erythrocyte distribution width (RBC) [Ratio] 14.7 % Normal 11.0-15.0 [facility] Comment on above: Performed By: #### C K, HSTROPN, CMP, BNP #### [facility] [address] [place] [address] Dr. Tan Oliveros Hematocrit (Bld) [Volume fraction] 38.9 % Critically low 42.0-54.0 [facility] Comment on above: Performed By: #### C K, HSTROPN, CMP, BNP #### [facility] [address] [place] [address] Dr. Tan Oliveros Hemoglobin (Bld) [Mass/Vol] 12.8 g/dL Critically low 14.0-18.[address] [facility] Comment on above: Performed By: #### C K, HSTROPN, CMP, BNP #### [facility] [address] [place] [address] Dr. Tan Oliveros IG # 0.02 10e3/ul Normal 0.00-0.03 [facility] Comment on above: Performed By: #### C K, HSTROPN, CMP, BNP #### [facility] [address] [place] [address] Dr. Tan Oliveros IG % 0.3 % Normal 0.0-0.5 [facility] Comment on above: Performed By: #### C K, HSTROPN, CMP, BNP #### [facility] [address] [place] [address] Dr. Tan Oliveros LYMPH # 0.7 103/ul Critically low 1.2-3.8 [facility] Comment on above: Performed By: #### C K, HSTROPN, CMP, BNP #### [facility] [address] [place] [address] Dr. Tan Oliveros Lymphocytes/100 WBC (Bld) 10.4 % Critically low 20.5-60.[address] [facility] Comment on above: Performed By: #### C K, HSTROPN, CMP, BNP #### [facility] [address] [place] [address] Dr. Tan Oliveros MANUAL DIFF REQ NO Normal [facility] Comment on above: Performed By: #### C K, HSTROPN, CMP, BNP #### [facility] [address] [place] [address] Dr. Tan Oliveros MCH (RBC) [Entitic mass] 27.2 pg Normal 25.9-34.0 [facility] Comment on above: Performed By: #### C K, HSTROPN, CMP, BNP #### [facility] [address] [place] [address] Dr. Tan Oliveros MCHC (RBC) [Mass/Vol] 32.9 g/dL Normal 29.9-35.[address] [facility] Comment on above: Performed By: #### C K, HSTROPN, CMP, BNP #### [facility] [address] [place] [address] Dr. Tan Oliveros MCV (RBC) [Entitic vol] 82.8 fL Normal 80.0-94.0 [facility] Comment on above: Performed By: #### C K, HSTROPN, CMP, BNP #### [facility] [address] [place] [address] Dr. Tan Oliveros MONO # 0.4 103/ul Normal 0.3-0.8 [facility] Comment on above: Performed By: #### C K, HSTROPN, CMP, BNP #### [facility] [address] [place] [address] Dr. Tan Oliveros Monocytes/100 WBC (Bld) 5.8 % Normal 1.7-12.[address] [facility] Comment on above: Performed By: #### C K, HSTROPN, CMP, BNP #### [facility] [address] [place] [address] Dr. Tan Oliveros NEUT # 5.2 103/ul Normal 1.4-6.[address] [facility] Comment on above: Performed By: #### C K, HSTROPN, CMP, BNP #### [facility] [address] [place] [address] Dr. Tan Oliveros Neutrophils/100 WBC (Bld) 81.0 % Critically high 43.0-75.[address] [facility] Comment on above: Performed By: #### C K, HSTROPN, CMP, BNP #### [facility] [address] [place] [address] Dr. Tan Oliveros Platelet mean volume (Bld) [Entitic vol] 9.9 fL Normal 9.5-13.[address] [facility] Comment on above: Performed By: #### C K, HSTROPN, CMP, BNP #### [facility] [address] [place] [address] Dr. Tan Oliveros PLT 198 103/ul Normal 150-[address] [facility] Comment on above: Performed By: #### C K, HSTROPN, CMP, BNP #### [facility] [address] [place] [address] Dr. Tan Oliveros RBC 4.70 106/ul Normal 4.70-6.[address] [facility] Comment on above: Performed By: #### C K, HSTROPN, CMP, BNP #### [facility] [address] [place] [address] Dr. Tan Oliveros WBC 6.4 103/ul Normal 4.0-11.[address] [facility] Comment on above: Performed By: #### C K, HSTROPN, CMP, BNP #### [facility] [address] [address] [address] Tan Oliveros CPKon 03-10-2023 CK [Catalytic activity/Vol] 152 U/L Normal 39-308 [facility] Comment on above: Performed By: #### C K, HSTROPN, CMP, BNP #### [facility] [address] [place] [address] Dr. Tan Oliveros PROF 14(COMP METB)on 023 Albumin [Mass/Vol] 3.5 g/dL Normal 3.4-5.0 [facility] Comment on above: Performed By: #### C K, HSTROPN, CMP, BNP #### [facility] [address] [place] [address] Dr. Tan Oliveros Albumin/Globulin [Mass ratio] 1.2 {ratio} Normal [facility] Comment on above: Performed By: #### C K, HSTROPN, CMP, BNP #### [facility] [address] [place] [address] Dr. Tan Oliveros ALP [Catalytic activity/Vol] 69 U/L Normal 46-116 [facility] Comment on above: Performed By: #### C K, HSTROPN, CMP, BNP #### [facility] [address] [place] [address] Dr. Tan Oliveros ALT [Catalytic activity/Vol] 21 U/L Normal 16-63 [facility] Comment on above: Performed By: #### C K, HSTROPN, CMP, BNP #### [facility] [address] [place] [address] Dr. Tan Oliveros Anion gap [Moles/Vol] 14.6 mmol/L Normal [facility] Comment on above: Performed By: #### C K, HSTROPN, CMP, BNP #### [facility] [address] [place] [address] Dr. Tan Oliveros AST [Catalytic activity/Vol] 21 U/L Normal 15-37 [facility] Comment on above: Performed By: #### C K, HSTROPN, CMP, BNP #### [facility] [address] [address] [address] Tan Oliveros Bilirubin [Mass/Vol] 0.5 mg/dL Normal 0.2-1.0 [facility] Comment on above: Performed By: #### C K, HSTROPN, CMP, BNP #### [facility] [address] [address] [address] Tan Oliveros Calcium [Mass/Vol] 8.7 mg/dL Normal 8.5-10.1 [facility] Comment on above: Performed By: #### C K, HSTROPN, CMP, BNP #### [facility] [address] [place] [address] Dr. Tan Oliveros Chloride [Moles/Vol] 107 mmol/L Normal 98-107 [facility] Comment on above: Performed By: #### C K, HSTROPN, CMP, BNP #### [facility] [address] [place] [address] Dr. Tan Oliveros CO2 [Moles/Vol] 23.1 mmol/L Normal 21.0-32.0 [facility] Comment on above: Performed By: #### C K, HSTROPN, CMP, BNP #### [facility] [address] [place] [address] Dr. Tan Oliveros Creatinine [Mass/Vol] 2.31 mg/dL Critically high 0.70-1.30 [facility] Comment on above: Performed By: #### C K, HSTROPN, CMP, BNP #### [facility] [address] [place] [address] Dr. Tan Oliveros EGFR-AF INDONESIAN 33 mL/min/1.73m2 Critically low >=60 [facility] Comment on above: Performed By: #### C K, HSTROPN, CMP, BNP #### [facility] [address] [place] [address] Dr. Tan Oliveros EGFR-NON AF INDONESIAN 27 mL/min/1.73m2 Critically low >=[address] [facility] Comment on above: Performed By: #### C K, HSTROPN, CMP, BNP #### [facility] [address] [address] [address] Tan Oliveros Globulin (S) [Mass/Vol] 2.8 g/dL Normal [facility] Comment on above: Performed By: #### C K, HSTROPN, CMP, BNP #### [facility] [address] [address] [address] Tan Oliveros Glucose [Mass/Vol] 123 mg/dL Critically high 74-106 [facility] Comment on above: Performed By: #### C K, HSTROPN, CMP, BNP #### [facility] [address] [place] [address] Dr. Tan Oliveros Potassium [Moles/Vol] 4.7 mmol/L Normal 3.5-5.1 [facility] Comment on above: Performed By: #### C K, HSTROPN, CMP, BNP #### [facility] [address] [place] [address] Dr. Tan Oliveros Protein [Mass/Vol] 6.3 g/dL Critically low 6.4-8.2 [facility] Comment on above: Performed By: #### C K, HSTROPN, CMP, BNP #### [facility] [address] [place] [address] Dr. Tan Oliveros Sodium [Moles/Vol] 140 mmol/L Normal 136-145 [facility] Comment on above: Performed By: #### C K, HSTROPN, CMP, BNP #### [facility] [address] [place] [address] Dr. Tan Oliveros Urea nitrogen [Mass/Vol] 39.0 mg/dL Critically high 7.0-18.0 [facility] Comment on above: Performed By: #### C K, HSTROPN, CMP, BNP #### [facility] [address] [place] [address] Dr. Tan Oliveros Urea nitrogen/Creatinine [Mass ratio] 16.9 mg/mg [facility] Comment on above: Performed By: #### C K, HSTROPN, CMP, BNP #### [facility] [address] [place], [place] [address] Dr. Tan Oliveros TROPONIN, HIGH SENSITIVITYon 03-10-2023 HSTROP 44.5 pg/mL Normal 4.0-76.1 [facility] Comment on above: Result Comment: CUT- OFF POINTS HAVE BEEN ESTABLISHED BASED ON THE FOURTH UNIVERSAL DEFINITIONS OF MYOCARDIAL INFARCTION. THE UPPER REFERENCE LIMIT (URL) OF TROPONIN, DEFINED THE 99TH PERCENTILE OF cTnI DISTRIBUTION IN A REFERENCE POPULATION, HAS BEEN CONFIRMED THE DECISION THRESHOLD FOR [place] DIAGNOSIS. Performed By: #### C K, HSTROPN, CMP, BNP #### [facility] [address] [place], [place] [address] Dr. Tan Oliveros XR CHEST 2 Von [...] by: MIKE MARTÍNEZ Date: 2023-03-10 11:51 Normal [facility] CNOVSPon 03-07-2023 CNOVSP Normal [facility] CNPNon 03-07-2023 CNPN Normal [facility] Comprehensive metabolic 2000 panelon 03-07-2023 Albumin [Mass/Vol] 4.4 g/dL Normal 3.9-4.9 [facility] Comment on above: Order Comment: Speci men Type: BLOOD SPECIMENOrdering Facility: [facility] Address: [address] [id number] Performed By: #### 2 4323-8 ####[facility] [id number] [place] [address] ALP [Catalytic activity/Vol] 76 U/L Normal 38-113 [facility] Comment on above: Order Comment: Speci men Type: BLOOD SPECIMENOrdering Facility: [facility] Address: [address] [address] Performed By: #### 2 4323-8 ####[facility] [id number] [place] [address] ALT [Catalytic activity/Vol] 14 U/L Normal 10-54 [facility] Comment on above: Order Comment: Speci men Type: BLOOD SPECIMENOrdering Facility: [facility] Address: [address] [place] [address] Performed By: #### 2 4323-8 ####[facility] [id number] [place] [address] Anion gap [Moles/Vol] 10 mmol/L Normal 9-18 [facility] Comment on above: Order Comment: Speci men Type: BLOOD SPECIMENOrdering Facility: [facility] Address: [address] [place] [address] Performed By: #### 2 4323-8 ####[facility] [id number] [place] [address] AST [Catalytic activity/Vol] 21 U/L Normal 14-40 [facility] Comment on above: Order Comment: Speci men Type: BLOOD SPECIMENOrdering Facility: [facility] Address: [address] [place] [address] Performed By: #### 2 4323-8 ####[facility] [id number] [place] [address] Bilirubin [Mass/Vol] 0.5 mg/dL Normal 0.2-1.3 [facility] Comment on above: Order Comment: Speci men Type: BLOOD SPECIMENOrdering Facility: [facility] Address: [address] [place] [address] Performed By: #### 2 4323-8 ####[facility] [id number] [place] [address] Calcium [Mass/Vol] 9.6 mg/dL Normal 8.5-10.2 [facility] Comment on above: Order Comment: Speci men Type: BLOOD SPECIMENOrdering Facility: [facility] Address: [address] [address] Performed By: #### 2 4323-8 ####[facility] [id number] [place] [address] Chloride [Moles/Vol] 107 mmol/L High 97-105 [facility] Comment on above: Order Comment: Speci men Type: BLOOD SPECIMENOrdering Facility: [facility] Address: [address] [address] Performed By: #### 2 4323-8 ####[facility] [id number] [place] [address] CO2 [Moles/Vol] 24 mmol/L Normal 22-30 [facility] Comment on above: Order Comment: Speci men Type: BLOOD SPECIMENOrdering Facility: [facility] Address: [address] [place] [address] Performed By: #### 2 4323-8 ####[facility] [id number] [place] [address] Creatinine [Mass/Vol] 2.28 mg/dL High 0.73-1.22 [facility] Comment on above: Order Comment: Speci men Type: BLOOD SPECIMENOrdering Facility: [facility] Address: [address] [place] [address] Performed By: #### 2 4323-8 ####[facility] [id number] [place] [address] ESTIMATED GLOMERULAR FILTRATION RATE 28 mL/min/1.73m??? Low >=60 [facility] Comment on above: Order Comment: Speci men Type: BLOOD SPECIMENOrdering Facility: [facility] Address: [address] [place] [address] Result Comment: Viviana mated Glomerular Filtration Rate [...] actual GFR. Performed By: #### 2 4323-8 ####[facility] [id number] [place] [address] Glucose [Mass/Vol] 118 mg/dL High 74-99 [facility] Comment on above: Order Comment: Speci men Type: BLOOD SPECIMENOrdering Facility: [facility] Address: [address] [place], [place] [id number] Result Comment: The [place] Diabetes Association (ADA) provides guidance for cutoff [...] Standards of Medical Care in Diabetes 2016, [place] [employer]. Diabetes Care. 2016.39(Suppl 1). Performed By: #### 2 4323-8 ####[facility] [id number] [place] [address] Potassium [Moles/Vol] 4.2 mmol/L Normal 3.7-5.1 [facility] Comment on above: Order Comment: Speci oralia Type: BLOOD SPECIMENOrdering Facility: [facility] Address: [address] [place] [id number] Performed By: #### 2 4323-8 ####[facility] [id number] [place] [address] Protein [Mass/Vol] 6.2 g/dL Low 6.3-8.0 [facility] Comment on above: Order Comment: Speci men Type: BLOOD SPECIMENOrdering Facility: [facility] Address: [address] [address] Performed By: #### 2 4323-8 ####[facility] [id number] [place] [address] Sodium [Moles/Vol] 141 mmol/L Normal 136-144 [facility] Comment on above: Order Comment: Speci men Type: BLOOD SPECIMENOrdering Facility: [facility] Address: [address] [place] [address] Performed By: #### 2 4323-8 ####[facility] [id number] [place] [address] Urea nitrogen [Mass/Vol] 42 mg/dL High 9-24 [facility] Comment on above: Order Comment: Speci men Type: BLOOD SPECIMENOrdering Facility: [facility] Address: [address] [address] Performed By: #### 2 4323-8 ####[facility] [id number] [place] [address] CBC W Auto Differential pane l (Bld)on 02-21-2023 Basophils (Bld) [#/Vol] 0.05 10*3/uL Normal <0.11 [facility] Comment on above: Order Comment: Speci men Type: BLOOD SPECIMENOrdering Facility: [facility] Address: [address] [address] Performed By: #### 5 7021-8 ####[facility] [id number] [place] [address] Basophils/100 WBC (Bld) 0.8 % Normal [facility] Comment on above: Order Comment: Speci men Type: BLOOD SPECIMENOrdering Facility: [facility] Address: [address] [place] [address] Performed By: #### 5 7021-8 ####[facility] [id number] [place] [address] Differential cell count method Nom (Bld) Auto Normal [facility] Comment on above: Order Comment: Speci men Type: BLOOD SPECIMENOrdering Facility: [facility] Address: [address] [place] [address] Performed By: #### 5 7021-8 ####[facility] [id number] [place] [address] Eosinophils (Bld) [#/Vol] 0.24 10*3/uL Normal <0.46 [facility] Comment on above: Order Comment: Speci men Type: BLOOD SPECIMENOrdering Facility: [facility] Address: [address] [place] [address] Performed By: #### 5 7021-8 ####[facility] LABCLIA [id number] [place] [address] Eosinophils/100 WBC (Bld) 3.9 % Normal [facility] Comment on above: Order Comment: Speci men Type: BLOOD SPECIMENOrdering Facility: [facility] Address: [address] [place] [address] Performed By: #### 5 7021-8 ####[facility] LABCLIA [id number] [place] [address] Erythrocyte distribution width (RBC) [Ratio] 14.6 % Normal 11.5-15.0 [facility] Comment on above: Order Comment: Speci men Type: BLOOD SPECIMENOrdering Facility: [facility] Address: [address] [place] [address] Performed By: #### 5 7021-8 ####[facility] LABCLIA [id number] [place] [address] Hematocrit (Bld) [Volume fraction] 39.4 % Normal 39.0-51.0 [facility] Comment on above: Order Comment: Speci men Type: BLOOD SPECIMENOrdering Facility: [facility] Address: [address] [place] [address] Performed By: #### 5 7021-8 ####[facility] LABCLIA [id number] [place] [address] Hemoglobin (Bld) [Mass/Vol] 12.7 g/dL Low 13.0-17.0 [facility] Comment on above: Order Comment: Speci men Type: BLOOD SPECIMENOrdering Facility: [facility] Address: [address] [place] [address] Performed By: #### 5 7021-8 ####[facility] LABCLIA [id number] [place] [address] Immature granulocytes (Bld) [#/Vol] 0.03 10*3/uL Normal <0.10 [facility] Comment on above: Order Comment: Speci men Type: BLOOD SPECIMENOrdering Facility: [facility] Address: [address] [place] [address] Performed By: #### 5 7021-8 ####[facility] LABCLIA [id number] [place] [address] Immature granulocytes/100 WBC (Bld) 0.5 % Normal [facility] Comment on above: Order Comment: Speci men Type: BLOOD SPECIMENOrdering Facility: [facility] Address: [address] [place] [address] Performed By: #### 5 7021-8 ####[facility] LABCLIA [id number] [place] [address] Lymphocytes (Bld) [#/Vol] 0.81 10*3/uL Low 1.00-4.00 [facility] Comment on above: Order Comment: Speci men Type: BLOOD SPECIMENOrdering Facility: [facility] Address: [address] [place] [address] Performed By: #### 5 7021-8 ####[facility] LABCLIA [id number] [place] [address] Lymphocytes/100 WBC (Bld) 13.2 % Normal [facility] Comment on above: Order Comment: Speci men Type: BLOOD SPECIMENOrdering Facility: [facility] Address: [address] [place] [address] Performed By: #### 5 7021-8 ####[facility] LABCLIA [id number] [place] [address] MCH (RBC) [Entitic mass] 27.0 pg Normal 26.0-34.0 [facility] Comment on above: Order Comment: Speci men Type: BLOOD SPECIMENOrdering Facility: [facility] Address: [address] [place] [address] Performed By: #### 5 7021-8 ####[facility] LABCLIA [id number] [place] [address] MCHC (RBC) [Mass/Vol] 32.2 g/dL Normal 30.5-36.0 [facility] Comment on above: Order Comment: Speci men Type: BLOOD SPECIMENOrdering Facility: [facility] Address: [address] [address] Performed By: #### 5 7021-8 ####[facility] LABCLIA [id number] [place] [address] MCV (RBC) [Entitic vol] 83.8 fL Normal 80.0-100.0 [facility] Comment on above: Order Comment: Speci men Type: BLOOD SPECIMENOrdering Facility: [facility] Address: [address] [place] [address] Performed By: #### 5 7021-8 ####[facility] LABCLIA [id number] [place] [address] Monocytes (Bld) [#/Vol] 0.47 10*3/uL Normal <0.87 [facility] Comment on above: Order Comment: Speci men Type: BLOOD SPECIMENOrdering Facility: [facility] Address: [address] [place] [address] Performed By: #### 5 7021-8 ####[facility] LABCLIA [id number] [place] [address] Monocytes/100 WBC (Bld) 7.7 % Normal [facility] Comment on above: Order Comment: Speci men Type: BLOOD SPECIMENOrdering Facility: [facility] Address: [address] [place] [address] Performed By: #### 5 7021-8 ####[facility] LABCLIA [id number] [place] [address] Neutrophils (Bld) [#/Vol] 4.54 10*3/uL Normal 1.45-7.50 [facility] Comment on above: Order Comment: Speci men Type: BLOOD SPECIMENOrdering Facility: [facility] Address: [address] [place] [address] Performed By: #### 5 7021-8 ####[facility] LABCLIA [id number] [place] [address] Neutrophils/100 WBC (Bld) 73.9 % Normal [facility] Comment on above: Order Comment: Speci men Type: BLOOD SPECIMENOrdering Facility: [facility] Address: [address] [place] [address] Performed By: #### 5 7021-8 ####[facility] LABCLIA [id number] [place] [address] Nucleated RBC (Bld) [#/Vol] 10*3/uL Normal <0.01 [facility] Comment on above: Order Comment: Speci men Type: BLOOD SPECIMENOrdering Facility: [facility] Address: [address] [place] [address] Performed By: #### 5 7021-8 ####[facility] LABCLIA [id number] [place] [address] Nucleated RBC/100 WBC (Bld) [Ratio] 0.0 /100 WBC Normal [facility] Comment on above: Order Comment: Speci men Type: BLOOD SPECIMENOrdering Facility: [facility] Address: [address] [place] [address] Performed By: #### 5 7021-8 ####[facility] LABCLIA [id number] [place] [address] Platelet mean volume (Bld) [Entitic vol] 9.3 fL Normal 9.0-12.7 [facility] Comment on above: Order Comment: Speci men Type: BLOOD SPECIMENOrdering Facility: [facility] Address: [address] [place] [address] Performed By: #### 5 7021-8 ####[facility] LABCLIA [id number] [place] [address] Platelets (Bld) [#/Vol] 208 10*3/uL Normal 150-400 [facility] Comment on above: Order Comment: Speci men Type: BLOOD SPECIMENOrdering Facility: [facility] Address: [address] [place] [address] Performed By: #### 5 7021-8 ####[facility] LABIA [id number] [place] [address] RBC (Bld) [#/Vol] 4.70 10*6/uL Normal 4.20-6.00 [facility] Comment on above: Order Comment: Speci men Type: BLOOD SPECIMENOrdering Facility: [facility] Address: [address] [address] Performed By: #### 5 7021-8 ####[facility] LABIA [id number] [place] [address] WBC (Bld) [#/Vol] 6.14 10*3/uL Normal 3.70-11.00 [facility] Comment on above: Order Comment: Speci men Type: BLOOD SPECIMENOrdering Facility: [facility] Address: [address] [place] [address] Performed By: #### 5 7021-8 ####[facility] LABCLIA [id number] [place] [address] CNOVSPon 02-21-2023 CNOVSP Normal [facility] CNPNon 02-21-2023 CNPN Normal [facility] Comprehensive metabolic 2000 panelon 02-21-2023 Albumin [Mass/Vol] 4.4 g/dL Normal 3.9-4.9 [facility] Comment on above: Order Comment: Speci men Type: BLOOD SPECIMENOrdering Facility: [facility] Address: [address] [place] [address] Performed By: #### 2 4323-8 ####[facility] LABCLIA [id number] [place] [address] ALP [Catalytic activity/Vol] 79 U/L Normal 38-113 [facility] Comment on above: Order Comment: Speci men Type: BLOOD SPECIMENOrdering Facility: [facility] Address: [address] [place] [address] Performed By: #### 2 4323-8 ####[facility] LABCLIA [id number] [place] [address] ALT [Catalytic activity/Vol] 14 U/L Normal 10-54 [facility] Comment on above: Order Comment: Speci men Type: BLOOD SPECIMENOrdering Facility: [facility] Address: [address] [place] [address] Performed By: #### 2 4323-8 ####[facility] LABCLIA [id number] [place] [address] Anion gap [Moles/Vol] 12 mmol/L Normal 9-18 [facility] Comment on above: Order Comment: Speci men Type: BLOOD SPECIMENOrdering Facility: [facility] Address: [address] [place] [address] Performed By: #### 2 4323-8 ####[facility] LABCLIA [id number] [place] [address] AST [Catalytic activity/Vol] 24 U/L Normal 14-40 [facility] Comment on above: Order Comment: Speci men Type: BLOOD SPECIMENOrdering Facility: [facility] Address: [address] [address] Performed By: #### 2 4323-8 ####[facility] LABCLIA [id number] [place] [address] Bilirubin [Mass/Vol] 0.5 mg/dL Normal 0.2-1.3 [facility] Comment on above: Order Comment: Speci men Type: BLOOD SPECIMENOrdering Facility: [facility] Address: [address] [address] Performed By: #### 2 4323-8 ####[facility] [id number] [place] [address] Calcium [Mass/Vol] 9.2 mg/dL Normal 8.5-10.2 [facility] Comment on above: Order Comment: Speci men Type: BLOOD SPECIMENOrdering Facility: [facility] Address: [address] [address] Performed By: #### 2 4323-8 ####[facility] LABCLIA [id number] [place] [address] Chloride [Moles/Vol] 105 mmol/L Normal 97-105 [facility] Comment on above: Order Comment: Speci men Type: BLOOD SPECIMENOrdering Facility: [facility] Address: [address] [address] Performed By: #### 2 4323-8 ####[facility] LABCLIA [id number] [place] [address] CO2 [Moles/Vol] 25 mmol/L Normal 22-30 [facility] Comment on above: Order Comment: Speci men Type: BLOOD SPECIMENOrdering Facility: [facility] Address: [address] [address] Performed By: #### 2 4323-8 ####[facility] LABCLIA [id number] [place] [address] Creatinine [Mass/Vol] 2.23 mg/dL High 0.73-1.22 [facility] Comment on above: Order Comment: Vero barton Type: BLOOD SPECIMENOrdering Facility: [facility] Address: [address] [place] [address] Performed By: #### 2 4323-8 ####[facility] LABCLIA [id number] [place] [address] ESTIMATED GLOMERULAR FILTRATION RATE 29 mL/min/1.73m??? Low >=60 [facility] Comment on above: Order Comment: Vero barton Type: BLOOD SPECIMENOrdering Facility: [facility] Address: [address] [place] [address] Result Comment: Viviana mated Glomerular Filtration Rate [...] actual GFR. Performed By: #### 2 4323-8 ####[facility] LABCLIA [id number] [place] [address] Glucose [Mass/Vol] 117 mg/dL High 74-99 [facility] Comment on above: Order Comment: Vero barton Type: BLOOD SPECIMENOrdering Facility: [facility] Address: [address] [place] [address] Result Comment: The [place] Diabetes Association (ADA) provides guidance for cutoff [...] Standards of Medical Care in Diabetes 2016, [place] [employer]. Diabetes Care. 2016.39(Suppl 1). Performed By: #### 2 4323-8 ####[facility] LABCLIA [id number] [place] [address] Potassium [Moles/Vol] 4.9 mmol/L Normal 3.7-5.1 [facility] Comment on above: Order Comment: Speci men Type: BLOOD SPECIMENOrdering Facility: [facility] Address: [address] [address] Performed By: #### 2 4323-8 ####[facility] LABCLIA [id number] [place] [address] Protein [Mass/Vol] 6.4 g/dL Normal 6.3-8.0 [facility] Comment on above: Order Comment: Speci men Type: BLOOD SPECIMENOrdering Facility: [facility] Address: [address] [address] Performed By: #### 2 4323-8 ####[facility] LABCLIA [id number] [place] [address] Sodium [Moles/Vol] 142 mmol/L Normal 136-144 [facility] Comment on above: Order Comment: Speci men Type: BLOOD SPECIMENOrdering Facility: [facility] Address: [address] [address] Performed By: #### 2 4323-8 ####[facility] LABCLIA [id number] [place] [address] Urea nitrogen [Mass/Vol] 36 mg/dL High 9-24 [facility] Comment on above: Order Comment: Speci men Type: BLOOD SPECIMENOrdering Facility: [facility] Address: [address] [address] Performed By: #### 2 4323-8 ####[facility] LABCLIA [id number] [place] [address] Beverly Rogerskimberlyseda 02-22-20 Cortisol [Mass/Vol] 11.2 ug/dL Normal 4.8-19.5 [facility] Comment on above: Order Comment: Virginiai men Type: BLOOD SPECIMENOrdering Facility: [facility] Address: [address] [address] Result Comment: Prov ided reference range is from 6-10 AM sample collection time.Cortisol Reference Range: 6-10 AM = 4.8-19.5 ug/dL, 4-8 PM = 2.5-11.9 ug/dL Performed By: #### 3 016-3, 2143-6 ####[facility] LABCLIA [id number] [address] OF [facility] HbA1c (Bld)on 02-21-2023 Average glucose Estimated from glycated hemoglobin (Bld) [Mass/Vol] 103 mg/dL Normal [facility] Comment on above: Order Comment: Virginiai oralia Type: BLOOD SPECIMENOrdering Facility: [facility] Address: [address] [address] Result Comment: eAG: (Estimated average glucose) is a calculated value from HgbA1c and is circulation sales representative of the average blood glucose level in the last 2-3 month period. Performed By: #### 5 5454-3 ####[facility] LABCLIA [id number] [address] [place] OF [facility] HbA1c (Bld) [Mass fraction] 5.2 % Normal 4.3-5.6 [facility] Comment on above: Order Comment: Virginiai men Type: BLOOD SPECIMENOrdering Facility: [facility] Address: [address] [address] Result Comment: [place] Diabetes Association guidelines indicate that patients with HgbA1c in the range 5.7-6.4% are at increased risk for development of diabetes, and intervention by lifestyle modification may be beneficial. HgbA1c greater or equal to 6.5% is considered diagnostic of diabetes. Performed By: #### 5 5454-3 ####[facility] LABCLIA [id number] [place] [address] [place] TSH SerPl-aCncon 02-21-2023 TSH Qn 3.220 m[IU]/L Normal 0.270-4.200 [facility] Comment on above: Order Comment: Speci men Type: BLOOD SPECIMENOrdering Facility: [facility] Address: [address] [place] [address] Performed By: #### 3 016-3, 2143-6 ####[facility] LABCLIA [id number] [address] OF [place] CNOVSPon 01-31-2023 CNOVSP Normal [facility] CNPNon 01-31-2023 CNPN Normal [facility] Consultation Noteon 02-01-20 Consultation Note [id number] .[id number]:127 Normal [facility] CBC W Auto Differential pane l (Bld)on 01-23-2023 Basophils (Bld) [#/Vol] 0.06 10*3/uL Normal <0.11 [facility] Comment on above: Order Comment: Speci men Type: BLOOD SPECIMENOrdering Facility: [facility] Address: [address] [place] [address] Performed By: #### 5 7021-8 ####[facility] LABCLIA [id number] [place] [address] Basophils/100 WBC (Bld) 1.0 % Normal [facility] Comment on above: Order Comment: Speci men Type: BLOOD SPECIMENOrdering Facility: [facility] Address: [address] [place] [address] Performed By: #### 5 7021-8 ####[facility] LABCLIA [id number] [place] [address] Differential cell count method Nom (Bld) Auto Normal [facility] Comment on above: Order Comment: Speci men Type: BLOOD SPECIMENOrdering Facility: [facility] Address: [address] [place] [address] Performed By: #### 5 7021-8 ####[facility] LABCLIA [id number] [place] [address] Eosinophils (Bld) [#/Vol] 0.23 10*3/uL Normal <0.46 [facility] Comment on above: Order Comment: Speci men Type: BLOOD SPECIMENOrdering Facility: [facility] Address: [address] [place] [address] Performed By: #### 5 7021-8 ####[facility] LABCLIA [id number] [place] [address] Eosinophils/100 WBC (Bld) 3.7 % Normal [facility] Comment on above: Order Comment: Speci men Type: BLOOD SPECIMENOrdering Facility: [facility] Address: [address] [place] [address] Performed By: #### 5 7021-8 ####[facility] LABCLIA [id number] [place] [address] Erythrocyte distribution width (RBC) [Ratio] 15.1 % High 11.5-15.0 [facility] Comment on above: Order Comment: Speci men Type: BLOOD SPECIMENOrdering Facility: [facility] Address: [address] [place] [address] Performed By: #### 5 7021-8 ####[facility] LABCLIA [id number] [place] [address] Hematocrit (Bld) [Volume fraction] 37.6 % Low 39.0-51.0 [facility] Comment on above: Order Comment: Speci men Type: BLOOD SPECIMENOrdering Facility: [facility] Address: [address] [place] [address] Performed By: #### 5 7021-8 ####[facility] LABCLIA [id number] [place] [address] Hemoglobin (Bld) [Mass/Vol] 12.4 g/dL Low 13.0-17.0 [facility] Comment on above: Order Comment: Speci men Type: BLOOD SPECIMENOrdering Facility: [facility] Address: [address] [place] [address] Performed By: #### 5 7021-8 ####[facility] LABCLIA [id number] [place] [address] Immature granulocytes (Bld) [#/Vol] 10*3/uL Normal <0.10 [facility] Comment on above: Order Comment: Speci men Type: BLOOD SPECIMENOrdering Facility: [facility] Address: [address] [place] [address] Performed By: #### 5 7021-8 ####[facility] LABCLIA [id number] [place] [address] Immature granulocytes/100 WBC (Bld) 0.3 % Normal [facility] Comment on above: Order Comment: Speci men Type: BLOOD SPECIMENOrdering Facility: [facility] Address: [address] [place] [address] Performed By: #### 5 7021-8 ####[facility] LABCLIA [id number] [place] [address] Lymphocytes (Bld) [#/Vol] 0.91 10*3/uL Low 1.00-4.00 [facility] Comment on above: Order Comment: Speci men Type: BLOOD SPECIMENOrdering Facility: [facility] Address: [address] [place] [address] Performed By: #### 5 7021-8 ####[facility] LABCLIA [id number] [place] [address] Lymphocytes/100 WBC (Bld) 14.8 % Normal [facility] Comment on above: Order Comment: Speci men Type: BLOOD SPECIMENOrdering Facility: [facility] Address: [address] [address] Performed By: #### 5 7021-8 ####[facility] LABCLIA [id number] [place] [address] MCH (RBC) [Entitic mass] 27.1 pg Normal 26.0-34.0 [facility] Comment on above: Order Comment: Speci men Type: BLOOD SPECIMENOrdering Facility: [facility] Address: [address] [place] [address] Performed By: #### 5 7021-8 ####[facility] LABCLIA [id number] [place] [address] MCHC (RBC) [Mass/Vol] 33.0 g/dL Normal 30.5-36.0 [facility] Comment on above: Order Comment: Speci men Type: BLOOD SPECIMENOrdering Facility: [facility] Address: [address] [place] [address] Performed By: #### 5 7021-8 ####[facility] LABIA [id number] [place] [address] MCV (RBC) [Entitic vol] 82.1 fL Normal 80.0-100.0 [facility] Comment on above: Order Comment: Speci men Type: BLOOD SPECIMENOrdering Facility: [facility] Address: [address] [place] [address] Performed By: #### 5 7021-8 ####[facility] LABCLIA [id number] [place] [address] Monocytes (Bld) [#/Vol] 0.45 10*3/uL Normal <0.87 [facility] Comment on above: Order Comment: Speci men Type: BLOOD SPECIMENOrdering Facility: [facility] Address: [address] [place] [address] Performed By: #### 5 7021-8 ####[facility] LABCLIA [id number] [place] [address] Monocytes/100 WBC (Bld) 7.3 % Normal [facility] Comment on above: Order Comment: Speci men Type: BLOOD SPECIMENOrdering Facility: [facility] Address: [address] [place] [address] Performed By: #### 5 7021-8 ####[facility] LABCLIA [id number] [place] [address] Neutrophils (Bld) [#/Vol] 4.47 10*3/uL Normal 1.45-7.50 [facility] Comment on above: Order Comment: Speci men Type: BLOOD SPECIMENOrdering Facility: [facility] Address: [address] [place] [address] Performed By: #### 5 7021-8 ####[facility] LABCLIA [id number] [place] [address] Neutrophils/100 WBC (Bld) 72.9 % Normal [facility] Comment on above: Order Comment: Speci men Type: BLOOD SPECIMENOrdering Facility: [facility] Address: [address] [place] [address] Performed By: #### 5 7021-8 ####[facility] LABCLIA [id number] [place] [address] Nucleated RBC (Bld) [#/Vol] 10*3/uL Normal <0.01 [facility] Comment on above: Order Comment: Speci men Type: BLOOD SPECIMENOrdering Facility: [facility] Address: [address] [place] [address] Performed By: #### 5 7021-8 ####[facility] LABCLIA [id number] [place] [address] Nucleated RBC/100 WBC (Bld) [Ratio] 0.0 /100 WBC Normal [facility] Comment on above: Order Comment: Speci men Type: BLOOD SPECIMENOrdering Facility: [facility] Address: [address] [place] [address] Performed By: #### 5 7021-8 ####[facility] LABCLIA [id number] [place] [address] Platelet mean volume (Bld) [Entitic vol] 8.8 fL Low 9.0-12.7 [facility] Comment on above: Order Comment: Speci men Type: BLOOD SPECIMENOrdering Facility: [facility] Address: [address] [place] [address] Performed By: #### 5 7021-8 ####[facility] LABCLIA [id number] [place] [address] Platelets (Bld) [#/Vol] 202 10*3/uL Normal 150-400 [facility] Comment on above: Order Comment: Speci men Type: BLOOD SPECIMENOrdering Facility: [facility] Address: [address] [place] [address] Performed By: #### 5 7021-8 ####[facility] LABCLIA [id number] [place] [address] RBC (Bld) [#/Vol] 4.58 10*6/uL Normal 4.20-6.00 [facility] Comment on above: Order Comment: Speci men Type: BLOOD SPECIMENOrdering Facility: [facility] Address: [address] [place] [address] Performed By: #### 5 7021-8 ####[facility] LABCLIA [id number] [place] [address] WBC (Bld) [#/Vol] 6.14 10*3/uL Normal 3.70-11.00 [facility] Comment on above: Order Comment: Speci men Type: BLOOD SPECIMENOrdering Facility: [facility] Address: [address] [place] [address] Performed By: #### 5 7021-8 ####[facility] LABCLIA [id number] [place] [address] CNOVSPon 01-23-2023 CNOVSP Normal [facility] CT CHEST WO IVCONon 01-24-20 CT CHEST WO IVCON Normal [facility] Comprehensive metabolic 2000 panelon 01-23-2023 Albumin [Mass/Vol] 4.4 g/dL Normal 3.9-4.9 [facility] Comment on above: Order Comment: Speci men Type: BLOOD SPECIMENOrdering Facility: [facility] Address: [address] [place] [address] Performed By: #### 2 4323-8 ####[facility] LABCLIA [id number] [place] [address] ALP [Catalytic activity/Vol] 76 U/L Normal 38-113 [facility] Comment on above: Order Comment: Speci men Type: BLOOD SPECIMENOrdering Facility: [facility] Address: [address] [place] [address] Performed By: #### 2 4323-8 ####[facility] LABCLIA [id number] [place] [address] ALT [Catalytic activity/Vol] 16 U/L Normal 10-54 [facility] Comment on above: Order Comment: Speci men Type: BLOOD SPECIMENOrdering Facility: [facility] Address: [address] [place] [address] Performed By: #### 2 4323-8 ####[facility] LABCLIA [id number] [place] [address] Anion gap [Moles/Vol] 7 mmol/L Low 9-18 [facility] Comment on above: Order Comment: Speci men Type: BLOOD SPECIMENOrdering Facility: [facility] Address: [address] [place] [address] Performed By: #### 2 4323-8 ####[facility] LABCLIA [id number] [place] [address] AST [Catalytic activity/Vol] 22 U/L Normal 14-40 [facility] Comment on above: Order Comment: Speci men Type: BLOOD SPECIMENOrdering Facility: [facility] Address: [address] [address] Performed By: #### 2 4323-8 ####[facility] LABCLIA [id number] [place] [address] Bilirubin [Mass/Vol] 0.4 mg/dL Normal 0.2-1.3 [facility] Comment on above: Order Comment: Speci men Type: BLOOD SPECIMENOrdering Facility: [facility] Address: [address] [address] Performed By: #### 2 4323-8 ####[facility] LABCLIA [id number] [place] [address] Calcium [Mass/Vol] 9.0 mg/dL Normal 8.5-10.2 [facility] Comment on above: Order Comment: Speci men Type: BLOOD SPECIMENOrdering Facility: [facility] Address: [address] [address] Performed By: #### 2 4323-8 ####[facility] LABCLIA [id number] [place] [address] Chloride [Moles/Vol] 106 mmol/L High 97-105 [facility] Comment on above: Order Comment: Speci men Type: BLOOD SPECIMENOrdering Facility: [facility] Address: [address] [address] Performed By: #### 2 4323-8 ####[facility] LABCLIA [id number] [place] [address] CO2 [Moles/Vol] 25 mmol/L Normal 22-30 [facility] Comment on above: Order Comment: Speci men Type: BLOOD SPECIMENOrdering Facility: [facility] Address: [address] [address] Performed By: #### 2 4323-8 ####[facility] LABCLIA [id number] [place] [address] Creatinine [Mass/Vol] 2.30 mg/dL High 0.73-1.22 [facility] Comment on above: Order Comment: Vero barton Type: BLOOD SPECIMENOrdering Facility: [facility] Address: [address] [address] Performed By: #### 2 4323-8 ####[facility] LABIA [id number] [place] [address] ESTIMATED GLOMERULAR FILTRATION RATE 27 mL/min/1.73m??? Low >=60 [facility] Comment on above: Order Comment: Vero barton Type: BLOOD SPECIMENOrdering Facility: [facility] Address: [address] [place] [address] Result Comment: Viviana mated Glomerular Filtration Rate [...] actual GFR. Performed By: #### 2 4323-8 ####[facility] LABIA [id number] [place] [address] Glucose [Mass/Vol] 100 mg/dL High 74-99 [facility] Comment on above: Order Comment: Vero barton Type: BLOOD SPECIMENOrdering Facility: [facility] Address: [address] [place] [address] Result Comment: The [place] Diabetes Association (ADA) provides guidance for cutoff [...] Standards of Medical Care in Diabetes 2016, [place] Diabetes Association. Diabetes Care. 2016.39(Suppl 1). Performed By: #### 2 4323-8 ####[facility] LABCLIA [id number] [place] [address] Potassium [Moles/Vol] 4.2 mmol/L Normal 3.7-5.1 [facility] Comment on above: Order Comment: Speci men Type: BLOOD SPECIMENOrdering Facility: [facility] Address: [address] [address] Performed By: #### 2 4323-8 ####[facility] LABCLIA [id number] [place] [address] Protein [Mass/Vol] 6.5 g/dL Normal 6.3-8.0 [facility] Comment on above: Order Comment: Speci men Type: BLOOD SPECIMENOrdering Facility: [facility] Address: [address] [address] Performed By: #### 2 4323-8 ####[facility] LABCLIA [id number] [place] [address] Sodium [Moles/Vol] 138 mmol/L Normal 136-144 [facility] Comment on above: Order Comment: Speci men Type: BLOOD SPECIMENOrdering Facility: [facility] Address: [address] [address] Performed By: #### 2 4323-8 ####[facility] LABCLIA [id number] [place] [address] Urea nitrogen [Mass/Vol] 36 mg/dL High 9-24 [facility] Comment on above: Order Comment: Speci men Type: BLOOD SPECIMENOrdering Facility: [facility] Address: [address] [address] Performed By: #### 2 4323-8 ####[facility] LABCLIA [id number] [place] [address] Beverly Koehler 01-24-20 Cortisol [Mass/Vol] 6.8 ug/dL Normal 4.8-19.5 [facility] Comment on above: Order Comment: Vero barton Type: BLOOD SPECIMENOrdering Facility: [facility] Address: [address] [place] [address] Result Comment: Prov ided reference range is from 6-10 AM sample collection time.Cortisol Reference Range: 6-10 AM = 4.8-19.5 ug/dL, 4-8 PM = 2.5-11.9 ug/dL Performed By: #### 3 016-3, 2143-6 ####[facility] LABCLIA [id number] [address] [place] HbA1c (Bld)on 01-23-2023 Average glucose Estimated from glycated hemoglobin (Bld) [Mass/Vol] 105 mg/dL Normal [facility] Comment on above: Order Comment: Vero barton Type: BLOOD SPECIMENOrdering Facility: [facility] Address: [address] [place] [address] Result Comment: eAG: (Estimated average glucose) is a calculated value from HgbA1c and is circulation sales representative of the average blood glucose level in the last 2-3 month period. Performed By: #### 5 5454-3 ####[facility] LABCLIA [id number] [address] [place] HbA1c (Bld) [Mass fraction] 5.3 % Normal 4.3-5.6 [facility] Comment on above: Order Comment: [facility] Type: BLOOD SPECIMENOrdering Facility: [facility] Address: [address] [place] [address] Result Comment: Amer ican Diabetes Association guidelines indicate that patients with HgbA1c in the range 5.7-6.4% are at increased risk for development of diabetes, and intervention by lifestyle modification may be beneficial. HgbA1c greater or equal to 6.5% is considered diagnostic of diabetes. Performed By: #### 5 5454-3 ####[facility] LABCLIA [id number] [address] [id number] [place] TSH SerPl-aCncon 01-23-2023 TSH Qn 2.850 m[IU]/L Normal 0.270-4.200 [facility] Comment on above: Order Comment: Speci men Type: BLOOD SPECIMENOrdering Facility: [facility] Address: [address] [place] [address] Performed By: #### 3 016-3, 2143-6 ####[facility] LABCLIA [id number] [address] [id number] [place] ECHOCARDIO M/2D COMPLETEon 0 01-11-2023 ECHOCARDIO M/2D COMPLETE Patient: JUAN JOSE AUSTIN Exam Date: 01/11/2023 : 1940 Gender:M Ordering : DR YOAN SNEED . Admission #: [id number] Family : DR CASEY CASATNEDA M.D. Order #: [id number] CLICK HERE TO VIEW EXAM ECHOCARDIOGRAM REPORT [...] Michel M.D. on 01/11/2023 at 15:32 Normal [facility] CNPNon 01-08-2023 CNPN Normal [facility] CNOVSPon 01-02-2023 CNOVSP Normal [facility] CBC W Auto Differential pane l (Bld)on 12-31-2022 Basophils (Bld) [#/Vol] 0.06 10*3/uL Normal <0.11 [facility] Comment on above: Order Comment: Speci men Type: BLOOD SPECIMENOrdering Facility: [facility] Address: [address] [address] Performed By: #### 5 7021-8 ####[facility] LABCLIA [id number] [place] [address] Basophils/100 WBC (Bld) 0.7 % Normal [facility] Comment on above: Order Comment: Speci men Type: BLOOD SPECIMENOrdering Facility: [facility] Address: [address] [place] [address] Performed By: #### 5 7021-8 ####[facility] LABCLIA [id number] [place] [address] Differential cell count method Nom (Bld) Auto Normal [facility] Comment on above: Order Comment: Speci men Type: BLOOD SPECIMENOrdering Facility: [facility] Address: [address] [place] [address] Performed By: #### 5 7021-8 ####[facility] LABCLIA [id number] [place] [address] Eosinophils (Bld) [#/Vol] 0.25 10*3/uL Normal <0.46 [facility] Comment on above: Order Comment: Speci men Type: BLOOD SPECIMENOrdering Facility: [facility] Address: [address] [place] [address] Performed By: #### 5 7021-8 ####[facility] LABCLIA [id number] [place] [address] Eosinophils/100 WBC (Bld) 3.1 % Normal [facility] Comment on above: Order Comment: Speci men Type: BLOOD SPECIMENOrdering Facility: [facility] Address: [address] [place] [address] Performed By: #### 5 7021-8 ####[facility] LABCLIA [id number] [place] [address] Erythrocyte distribution width (RBC) [Ratio] 16.1 % High 11.5-15.0 [facility] Comment on above: Order Comment: Speci men Type: BLOOD SPECIMENOrdering Facility: [facility] Address: [address] [place] [address] Performed By: #### 5 7021-8 ####[facility] LABCLIA [id number] [place] [address] Hematocrit (Bld) [Volume fraction] 39.5 % Normal 39.0-51.0 [facility] Comment on above: Order Comment: Speci men Type: BLOOD SPECIMENOrdering Facility: [facility] Address: [address] [place] [address] Performed By: #### 5 7021-8 ####[facility] LABCLIA [id number] [place] [address] Hemoglobin (Bld) [Mass/Vol] 12.8 g/dL Low 13.0-17.0 [facility] Comment on above: Order Comment: Speci men Type: BLOOD SPECIMENOrdering Facility: [facility] Address: [address] [place] [address] Performed By: #### 5 7021-8 ####[facility] LABCLIA [id number] [place] [address] Immature granulocytes (Bld) [#/Vol] 0.03 10*3/uL Normal <0.10 [facility] Comment on above: Order Comment: Speci men Type: BLOOD SPECIMENOrdering Facility: [facility] Address: [address] [place] [address] Performed By: #### 5 7021-8 ####[facility] LABCLIA [id number] [place] [address] Immature granulocytes/100 WBC (Bld) 0.4 % Normal [facility] Comment on above: Order Comment: Speci men Type: BLOOD SPECIMENOrdering Facility: [facility] Address: [address] [place] [address] Performed By: #### 5 7021-8 ####[facility] LABCLIA [id number] [place] [address] Lymphocytes (Bld) [#/Vol] 0.93 10*3/uL Low 1.00-4.00 [facility] Comment on above: Order Comment: Speci men Type: BLOOD SPECIMENOrdering Facility: [facility] Address: [address] [place] [address] Performed By: #### 5 7021-8 ####[facility] LABCLIA [id number] [place] [address] Lymphocytes/100 WBC (Bld) 11.6 % Normal [facility] Comment on above: Order Comment: Speci men Type: BLOOD SPECIMENOrdering Facility: [facility] Address: [address] [place] [address] Performed By: #### 5 7021-8 ####[facility] LABCLIA [id number] [place] [address] MCH (RBC) [Entitic mass] 26.4 pg Normal 26.0-34.0 [facility] Comment on above: Order Comment: Speci men Type: BLOOD SPECIMENOrdering Facility: [facility] Address: [address] [place] [address] Performed By: #### 5 7021-8 ####[facility] LABCLIA [id number] [place] [address] MCHC (RBC) [Mass/Vol] 32.4 g/dL Normal 30.5-36.0 [facility] Comment on above: Order Comment: Speci men Type: BLOOD SPECIMENOrdering Facility: [facility] Address: [address] [place] [address] Performed By: #### 5 7021-8 ####[facility] LABCLIA [id number] [place] [address] MCV (RBC) [Entitic vol] 81.4 fL Normal 80.0-100.0 [facility] Comment on above: Order Comment: Speci men Type: BLOOD SPECIMENOrdering Facility: [facility] Address: [address] [address] Performed By: #### 5 7021-8 ####[facility] LABCLIA [id number] [place] [address] Monocytes (Bld) [#/Vol] 0.49 10*3/uL Normal <0.87 [facility] Comment on above: Order Comment: Speci men Type: BLOOD SPECIMENOrdering Facility: [facility] Address: [address] [address] Performed By: #### 5 7021-8 ####[facility] LABCLIA [id number] [place] [address] Monocytes/100 WBC (Bld) 6.1 % Normal [facility] Comment on above: Order Comment: Speci men Type: BLOOD SPECIMENOrdering Facility: [facility] Address: [address] Performed By: #### 5 7021-8 ####[facility] LABCLIA [id number] [place] [address] Neutrophils (Bld) [#/Vol] 6.25 10*3/uL Normal 1.45-7.50 [facility] Comment on above: Order Comment: Speci men Type: BLOOD SPECIMENOrdering Facility: [facility] Address: [address] [place] [address] Performed By: #### 5 7021-8 ####[facility] LABCLIA [id number] [place] [address] Neutrophils/100 WBC (Bld) 78.1 % Normal [facility] Comment on above: Order Comment: Speci men Type: BLOOD SPECIMENOrdering Facility: [facility] Address: [address] [place] [address] Performed By: #### 5 7021-8 ####[facility] LABCLIA [id number] [place] [address] Nucleated RBC (Bld) [#/Vol] 10*3/uL Normal <0.01 [facility] Comment on above: Order Comment: Speci men Type: BLOOD SPECIMENOrdering Facility: [facility] Address: [address] [place] [address] Performed By: #### 5 7021-8 ####[facility] LABIA [id number] [place] [address] Nucleated RBC/100 WBC (Bld) [Ratio] 0.0 /100 WBC Normal [facility] Comment on above: Order Comment: Speci men Type: BLOOD SPECIMENOrdering Facility: [facility] Address: [address] [place] [address] Performed By: #### 5 7021-8 ####[facility] LABCLIA [id number] [place] [address] Platelet mean volume (Bld) [Entitic vol] 9.1 fL Normal 9.0-12.7 [facility] Comment on above: Order Comment: Speci men Type: BLOOD SPECIMENOrdering Facility: [facility] Address: [address] [place] [address] Performed By: #### 5 7021-8 ####[facility] LABIA [id number] [place] [address] Platelets (Bld) [#/Vol] 215 10*3/uL Normal 150-400 [facility] Comment on above: Order Comment: Speci men Type: BLOOD SPECIMENOrdering Facility: [facility] Address: [address] [place] [address] Performed By: #### 5 7021-8 ####[facility] LABIA [id number] [place] [address] RBC (Bld) [#/Vol] 4.85 10*6/uL Normal 4.20-6.00 [facility] Comment on above: Order Comment: Speci men Type: BLOOD SPECIMENOrdering Facility: [facility] Address: [address] [place] [address] Performed By: #### 5 7021-8 ####[facility] LABIA [id number] [place] [address] WBC (Bld) [#/Vol] 8.01 10*3/uL Normal 3.70-11.00 [facility] Comment on above: Order Comment: Speci men Type: BLOOD SPECIMENOrdering Facility: [facility] Address: [address] [place] [address] Performed By: #### 5 7021-8 ####[facility] LABIA [id number] [place] [address] CNCNPATEDon 12-31-2022 CNCNPATED Normal [facility] Comprehensive metabolic 2000 panelon 12-31-2022 Albumin [Mass/Vol] 4.4 g/dL Normal 3.9-4.9 [facility] Comment on above: Order Comment: Speci men Type: BLOOD SPECIMENOrdering Facility: [facility] Address: [address] [place] [address] Performed By: #### 2 4323-8 ####[facility] LABIA [id number] [place] [address] ALP [Catalytic activity/Vol] 76 U/L Normal 38-113 [facility] Comment on above: Order Comment: Speci men Type: BLOOD SPECIMENOrdering Facility: [facility] Address: [address] [place] [address] Performed By: #### 2 4323-8 ####[facility] LABCLIA [id number] [place] [address] ALT [Catalytic activity/Vol] 13 U/L Normal 10-54 [facility] Comment on above: Order Comment: Speci men Type: BLOOD SPECIMENOrdering Facility: [facility] Address: [address] [place] [address] Performed By: #### 2 4323-8 ####[facility] LABCLIA [id number] [place] [address] Anion gap [Moles/Vol] 11 mmol/L Normal 9-18 [facility] Comment on above: Order Comment: Speci men Type: BLOOD SPECIMENOrdering Facility: [facility] Address: [address] [place] [address] Performed By: #### 2 4323-8 ####[facility] LABCLIA [id number] [place] [address] AST [Catalytic activity/Vol] 22 U/L Normal 14-40 [facility] Comment on above: Order Comment: Speci men Type: BLOOD SPECIMENOrdering Facility: [facility] Address: [address] [place] [address] Performed By: #### 2 4323-8 ####[facility] LABCLIA [id number] [place] [address] Bilirubin [Mass/Vol] 0.4 mg/dL Normal 0.2-1.3 [facility] Comment on above: Order Comment: Speci men Type: BLOOD SPECIMENOrdering Facility: [facility] Address: [address] [place] [address] Performed By: #### 2 4323-8 ####[facility] LABCLIA [id number] [place] [address] Calcium [Mass/Vol] 9.7 mg/dL Normal 8.5-10.2 [facility] Comment on above: Order Comment: Speci men Type: BLOOD SPECIMENOrdering Facility: [facility] Address: [address] [place] [address] Performed By: #### 2 4323-8 ####[facility] LABCLIA [id number] [place] [address] Chloride [Moles/Vol] 101 mmol/L Normal 97-105 [facility] Comment on above: Order Comment: Speci men Type: BLOOD SPECIMENOrdering Facility: [facility] Address: [address] [place] [address] Performed By: #### 2 4323-8 ####[facility] LABCLIA [id number] [place] [address] CO2 [Moles/Vol] 26 mmol/L Normal 22-30 [facility] Comment on above: Order Comment: Speci men Type: BLOOD SPECIMENOrdering Facility: [facility] Address: [address] [place] [address] Performed By: #### 2 4323-8 ####[facility] LABCLIA [id number] [place] [address] Creatinine [Mass/Vol] 1.93 mg/dL High 0.73-1.22 [facility] Comment on above: Order Comment: Speci men Type: BLOOD SPECIMENOrdering Facility: [facility] Address: [address] [place] [address] Performed By: #### 2 4323-8 ####[facility] LABCLIA [id number] [place] [address] ESTIMATED GLOMERULAR FILTRATION RATE 34 mL/min/1.73m??? Low >=60 [facility] Comment on above: Order Comment: Speci men Type: BLOOD SPECIMENOrdering Facility: [facility] Address: [address] [place] [address] Result Comment: Viviana mated Glomerular Filtration Rate [...] actual GFR. Performed By: #### 2 4323-8 ####[facility] LABCLIA [id number] [place] [address] Glucose [Mass/Vol] 116 mg/dL High 74-99 [facility] Comment on above: Order Comment: Speci men Type: BLOOD SPECIMENOrdering Facility: [facility] Address: [address] [place], [place] [address] Result Comment: The [place] Diabetes Association (ADA) provides guidance for cutoff [...] Standards of Medical Care in Diabetes 2016, [place] Diabetes Association. Diabetes Care. 2016.39(Suppl 1). Performed By: #### 2 4323-8 ####[facility] LABCLIA [id number] [place] [address] Potassium [Moles/Vol] 4.2 mmol/L Normal 3.7-5.1 [facility] Comment on above: Order Comment: Speci men Type: BLOOD SPECIMENOrdering Facility: [facility] Address: [address] [place] [id number] Performed By: #### 2 4323-8 ####[facility] LABCLIA [id number] [place] [address] Protein [Mass/Vol] 6.6 g/dL Normal 6.3-8.0 [facility] Comment on above: Order Comment: Speci men Type: BLOOD SPECIMENOrdering Facility: [facility] Address: [address] [address] Performed By: #### 2 4323-8 ####[facility] LABCLIA [id number] [place] [address] Sodium [Moles/Vol] 138 mmol/L Normal 136-144 [facility] Comment on above: Order Comment: Speci men Type: BLOOD SPECIMENOrdering Facility: [facility] Address: [address] [address] Performed By: #### 2 4323-8 ####[facility] LABCLIA [id number] [place] [address] Urea nitrogen [Mass/Vol] 37 mg/dL High 9-24 [facility] Comment on above: Order Comment: Speci men Type: BLOOD SPECIMENOrdering Facility: [facility] Address: [address] [address] Performed By: #### 2 4323-8 ####[facility] LABCLIA [id number] [place] [address] Beverly Valdes-Ricaon 01-01-20 23 Cortisol [Mass/Vol] 6.4 ug/dL Normal 4.8-19.5 [facility] Comment on above: Order Comment: Speci men Type: BLOOD SPECIMENOrdering Facility: [facility] Address: [address] [place] [address] Result Comment: Prov ided reference range is from 6-10 AM sample collection time.Cortisol Reference Range: 6-10 AM = 4.8-19.5 ug/dL, 4-8 PM = 2.5-11.9 ug/dL Performed By: #### 3 016-3, 2143-6 ####[facility] LABCLIA [id number] [facility] [id number] [address] [place] HbA1c (Bld)on 12-31-2022 Average glucose Estimated from glycated hemoglobin (Bld) [Mass/Vol] 105 mg/dL Normal [facility] Comment on above: Order Comment: Vero barton Type: BLOOD SPECIMENOrdering Facility: [facility] Address: [address] [place] [address] Result Comment: eAG: (Estimated average glucose) is a calculated value from HgbA1c and is circulation sales representative of the average blood glucose level in the last 2-3 month period. Performed By: #### 5 5454-3 ####[facility] LABIA [id number] [address] OF [facility] HbA1c (Bld) [Mass fraction] 5.3 % Normal 4.3-5.6 [facility] Comment on above: Order Comment: Vero oralia Type: BLOOD SPECIMENOrdering Facility: [facility] Address: [address] [place] [address] Result Comment: Amer [place] Diabetes Association guidelines indicate that patients with HgbA1c in the range 5.7-6.4% are at increased risk for development of diabetes, and intervention by lifestyle modification may be beneficial. HgbA1c greater or equal to 6.5% is considered diagnostic of diabetes. Performed By: #### 5 5454-3 ####[facility] LABIA [id number] [address] [place] TSH SerPl-aCncon 12-31-2022 TSH Qn 3.730 m[IU]/L Normal 0.270-4.200 [facility] Comment on above: Order Comment: Virginiaronnie barton Type: BLOOD SPECIMENOrdering Facility: [facility] Address: [address] [place] [address] Performed By: #### 3 016-3, 2143-6 ####[facility] LABIA [id number] [address] [place] Consent for Procedure/Surger yon 12-20-2022 Consent for Procedure/Surgery [id number]# 1.00CD:127 Normal [facility] CNPNon 03-08-2023 CNPN Normal [facility] Urology Office/Clinic Noteon 12-18-2022 Urology Office/Clinic Note [...] [facility] [address], [place] [phone]- Additional Instructions: PRN Patient Education I, Marisabel [...] tab(s), O (more content not included)... Normal [facility] Comment on above: Result Comment: Elec tronically Signed By: Jian RODRIGUEZ MD R\.br\Date and Time Signed: 12/18/22 12:13 EST\.br\Electronically Co-Signed By: Marisabel Reeves\.br\Date and Time Co-Signed: 12/18/22 12:12 EST CNPNon 12-17-2022 CNPN Normal [facility] CBC AUTO DIFFon 12-08-2022 BASO # 0.1 103/ul Normal 0.0-0.1 [facility] Comment on above: Performed By: #### C K, HSTROPN, CMP, BNP #### [facility] [address] [place] [address] Dr. Tan Oliveros Basophils/100 WBC (Bld) 0.9 % Normal 0.2-2.0 [facility] Comment on above: Performed By: #### C K, HSTROPN, CMP, BNP #### [facility] [address] [address] [address] Tan Oliveros EO # 0.2 103/ul Normal 0.0-0.7 [facility] Comment on above: Performed By: #### C K, HSTROPN, CMP, BNP #### [facility] [address] [place] [address] Dr. Tan Oliveros Eosinophils/100 WBC (Bld) 3.7 % Normal 0.9-7.0 [facility] Comment on above: Performed By: #### C K, HSTROPN, CMP, BNP #### [facility] [address] [place] [address] Dr. Tan Oliveros Erythrocyte distribution width (RBC) [Ratio] 17.1 % Critically high 11.0-15.0 [facility] Comment on above: Performed By: #### C K, HSTROPN, CMP, BNP #### [facility] [address] [place] [address] Dr. Tan Oliveros Hematocrit (Bld) [Volume fraction] 38.5 % Critically low 42.0-54.0 [facility] Comment on above: Performed By: #### C K, HSTROPN, CMP, BNP #### [facility] [address] [place] [address] Dr. Tan Oliveros Hemoglobin (Bld) [Mass/Vol] 12.7 g/dL Critically low 14.0-18.0 [facility] Comment on above: Performed By: #### C K, HSTROPN, CMP, BNP #### [facility] [address] [place] [address] Dr. Tan Oliveros IG # 0.02 10e3/ul Normal 0.00-0.[address] [facility] Comment on above: Performed By: #### C K, HSTROPN, CMP, BNP #### [facility] [address] [place] [address] Dr. Tan Oliveros IG % 0.4 % Normal 0.0-0.5 [facility] Comment on above: Performed By: #### C K, HSTROPN, CMP, BNP #### [facility] [address] [place] [address] Dr. Tan Oliveros LYMPH # 0.7 103/ul Critically low 1.2-3.8 [facility] Comment on above: Performed By: #### C K, HSTROPN, CMP, BNP #### [facility] [address] [place] [address] Dr. Tan Oliveros Lymphocytes/100 WBC (Bld) 12.3 % Critically low 20.5-60.0 [facility] Comment on above: Performed By: #### C K, HSTROPN, CMP, BNP #### [facility] [address] [place] [address] Dr. Tan Oliveros MANUAL DIFF REQ NO Normal [facility] Comment on above: Performed By: #### C K, HSTROPN, CMP, BNP #### [facility] [address] [place] [address] Dr. Tan Oliveros MCH (RBC) [Entitic mass] 26.1 pg Normal 25.9-34.[address] [facility] Comment on above: Performed By: #### C K, HSTROPN, CMP, BNP #### [facility] [address] [place] [address] Dr. Tan Oliveros MCHC (RBC) [Mass/Vol] 33.0 g/dL Normal 29.9-35.[address] [facility] Comment on above: Performed By: #### C K, HSTROPN, CMP, BNP #### [facility] [address] [place] [address] Dr. Tan Oliveros MCV (RBC) [Entitic vol] 79.2 fL Critically low 80.0-94.0 [facility] Comment on above: Performed By: #### C K, HSTROPN, CMP, BNP #### [facility] [address] [place] [address] Dr. Tan Oliveros MONO # 0.4 103/ul Normal 0.3-0.[address] [facility] Comment on above: Performed By: #### C K, HSTROPN, CMP, BNP #### [facility] [address] [place] [address] Dr. Tan Oliveros Monocytes/100 WBC (Bld) 6.5 % Normal 1.7-12.0 [facility] Comment on above: Performed By: #### C K, HSTROPN, CMP, BNP #### [facility] [address] [place] [address] Dr. Tan Oliveros NEUT # 4.3 103/ul Normal 1.4-6.[address] [facility] Comment on above: Performed By: #### C K, HSTROPN, CMP, BNP #### [facility] [address] [place] [address] Dr. Tan Oliveros Neutrophils/100 WBC (Bld) 76.2 % Critically high 43.0-75.0 [facility] Comment on above: Performed By: #### C K, HSTROPN, CMP, BNP #### [facility] [address] [place] [address] Dr. Tan Oliveros Platelet mean volume (Bld) [Entitic vol] 9.7 fL Normal 9.5-13.5 [facility] Comment on above: Performed By: #### C K, HSTROPN, CMP, BNP #### [facility] [address] [place] [address] Dr. Tan Oliveros PLT 199 103/ul Normal 150-450 [facility] Comment on above: Performed By: #### C K, HSTROPN, CMP, BNP #### [facility] [address] [place] [address] Dr. Tan Oliveros RBC 4.86 106/ul Normal 4.70-6.[address] [facility] Comment on above: Performed By: #### C K, HSTROPN, CMP, BNP #### [facility] [address] [place] [address] Dr. Tan Oliveros WBC 5.7 103/ul Normal 4.0-11.[address] [facility] Comment on above: Performed By: #### C K, HSTROPN, CMP, BNP #### [facility] [address] [place] [address] Dr. Tan Oliveros CULTURE URINEon 12-08-2022 CULTURE URINE Culture Observations : NO GROWTH. Normal The [facility] Comment on above: Performed By: #### C K, HSTROPN, CMP, BNP #### [facility] [address] [place] [address] Dr. Tna Oliveros ER URINE PROFILEon 3 Bilirubin Ql (U) Negative Normal NEGATIVE [facility] Comment on above: Performed By: #### C K, HSTROPN, CMP, BNP #### [facility] [address] [place] [address] Dr. Tan Oliveros Clarity (U) CLEAR Normal CLEAR [facility] Comment on above: Performed By: #### C K, HSTROPN, CMP, BNP #### [facility] [address] [address] [address] Tan Oliveros Color (U) LT. YELLOW Normal YELLOW [facility] Comment on above: Performed By: #### C K, HSTROPN, CMP, BNP #### [facility] [address] [address] [address] Tna UPTONAHMarisabel A micrscopic examination will be performed if indicated. Normal [facility] Comment on above: Performed By: #### C K, HSTROPN, CMP, BNP #### [facility] [address] [address] [address] Tan Oliveros Glucose Ql (U) Negative Normal NEGATIVE [facility] Comment on above: Performed By: #### C K, HSTROPN, CMP, BNP #### [facility] [address] [address] [address] Tan Oliveros Hemoglobin Ql (U) LARGE Abnormal NEGATIVE The [facility] Comment on above: Performed By: #### C K, HSTROPN, CMP, BNP #### [facility] [address] [address] [address] Tan Oliveros Ketones Ql (U) Negative Normal NEGATIVE [facility] Comment on above: Performed By: #### C K, HSTROPN, CMP, BNP #### [facility] [address] [address] [address] Tan Oliveros LEUKOCYTES SMALL Abnormal NEGATIVE The [facility] Comment on above: Performed By: #### C K, HSTROPN, CMP, BNP #### [facility] [address] [address] [address] Tan Oliveros Nitrite Ql (U) Negative Normal NEGATIVE [facility] Comment on above: Performed By: #### C K, HSTROPN, CMP, BNP #### [facility] [address] [address] [address] Tan Oliveros pH (U) 6.0 [pH] Normal 5-9 [facility] Comment on above: Performed By: #### C K, HSTROPN, CMP, BNP #### [facility] [address] [place] [address] Dr. Tan Oliveros SPEC GRAVITY 1.010 Normal 1.005-<=1.02 5 [facility] Comment on above: Performed By: #### C K, HSTROPN, CMP, BNP #### [facility] [address] [address] [address] Tan Oliveros UA PROTEIN Negative Normal NEGATIVE/ TRACE [facility] Comment on above: Performed By: #### C K, HSTROPN, CMP, BNP #### [facility] [address] [place] [address] Dr. Tan Oliveros UR MICRO IND INDICATED Normal [facility] Comment on above: Performed By: #### C K, HSTROPN, CMP, BNP #### [facility] [address] [place] [address] Dr. Tan Oliveros Urobilinogen Qn (U) 0.2 {Maged'U}/dL Normal 0.2 - 1. 0 [facility] Comment on above: Performed By: #### C K, HSTROPN, CMP, BNP #### [facility] [address] [place] [address] Dr. Tan Oliveros POINT OF CARE GLUCOSEon 11-15 Glucose [Mass/Vol] 114 mg/dL Critically high 74-106 [facility] Comment on above: Performed By: #### C K, HSTROPN, CMP, BNP #### [facility] [address] [place] [address] Dr. Tan Oliveros PROF CHEM 8 (BAS METB)on Anion gap [Moles/Vol] 13.2 mmol/L Normal [facility] Comment on above: Performed By: #### H STROPN, BMP #### [facility] [address] [place] [address] Dr. Tan Oliveros Calcium [Mass/Vol] 8.9 mg/dL Normal 8.5-10.1 [facility] Comment on above: Performed By: #### H STROPN, BMP #### [facility] [address] [address] [address] Tan Oliveros Chloride [Moles/Vol] 104 mmol/L Normal 98-107 [facility] Comment on above: Performed By: #### H STROPN, BMP #### [facility] [address] [place] [address] Dr. Tan Oliveros CO2 [Moles/Vol] 27.1 mmol/L Normal 21.0-32.0 [facility] Comment on above: Performed By: #### H STROPN, BMP #### [facility] [address] [place] [address] Dr. Tan Oliveros Creatinine [Mass/Vol] 2.11 mg/dL Critically high 0.70-1.30 [facility] Comment on above: Performed By: #### H STROPN, BMP #### [facility] [address] [place] [address] Dr. Tan Oliveros EGFR-AF INDONESIAN 37 mL/min/1.73m2 Critically low >=60 [facility] Comment on above: Performed By: #### H STROPN, BMP #### [facility] [address] [place] [address] Dr. Tan Oliveros EGFR-NON AF INDONESIAN 30 mL/min/1.73m2 Critically low >=60 [facility] Comment on above: Performed By: #### H STROPN, BMP #### [facility] [address] [place] [address] Dr. Tan Oliveros Glucose [Mass/Vol] 107 mg/dL Critically high 74-106 [facility] Comment on above: Performed By: #### H STROPN, BMP #### [facility] [address] [place] [address] Dr. Tan Oliveros Potassium [Moles/Vol] 4.3 mmol/L Normal 3.5-5.1 [facility] Comment on above: Performed By: #### H STROPN, BMP #### [facility] [address] [place] [address] Dr. Tan Oliveros Sodium [Moles/Vol] 140 mmol/L Normal 136-145 [facility] Comment on above: Performed By: #### H FIONA, BMP #### [facility] [address] [place] [address] Dr. Tan Oliveros Urea nitrogen [Mass/Vol] 32.0 mg/dL Critically high 7.0-18.0 [facility] Comment on above: Performed By: #### H FIONA, BMP #### [facility] [address] [place] [address] Dr. Tan Oliveros Urea nitrogen/Creatinine [Mass ratio] 15.2 mg/mg Normal [facility] Comment on above: Performed By: #### H FIONA, BMP #### [facility] [address] [place] [address] Dr. Tan Oliveros TROPONIN, HIGH SENSITIVITYon 12-08-2022 HSTROP 54.6 pg/mL Normal 4.0-76.1 [facility] Comment on above: Result Comment: CUT- OFF POINTS HAVE BEEN ESTABLISHED BASED ON THE FOURTH UNIVERSAL DEFINITIONS OF MYOCARDIAL INFARCTION. THE UPPER REFERENCE LIMIT (URL) OF TROPONIN, DEFINED THE 99TH PERCENTILE OF cTnI DISTRIBUTION IN A REFERENCE POPULATION, HAS BEEN CONFIRMED THE DECISION THRESHOLD FOR [place] DIAGNOSIS. Performed By: #### Yuan JAIMES, BMP #### [facility] [address] [place] [address] Dr. Tan Oliveros URINE MICROSCOPIC ONLYon BACTERIA TRACE Abnormal NONE SEEN [facility] Comment on above: Performed By: #### C K, HSTROPN, CMP, BNP #### [facility] [address] [place] [address] Dr. Tan Oliveros Bacteria identified Cx Nom (U) INDICATED Normal [facility] Comment on above: Performed By: #### C K, HSTROPN, CMP, BNP #### [facility] [address] [place] [address] Dr. Tan Oliveros CAST NONE SEEN Normal NONE SEEN [facility] Comment on above: Performed By: #### C K, HSTROPN, CMP, BNP #### [facility] [address] [place] [address] Dr. Tan Oliveros Crystals LM Nom (Urine sed) NONE SEEN Normal NONE SEEN [facility] Comment on above: Performed By: #### C K, HSTROPN, CMP, BNP #### [facility] [address] [address] [address] Tan Oliveros Epithelial cells LM Ql (Urine sed) RARE Normal NONE SEEN /RARE [facility] Comment on above: Performed By: #### C K, HSTROPN, CMP, BNP #### [facility] [address] [address] [address] Tan Oliveros MUCOUS NONE SEEN Normal NONE SEEN [facility] Comment on above: Performed By: #### C K, HSTROPN, CMP, BNP #### [facility] [address] [address] [address] Tan Oliveros RBC 20-50 Abnormal 0-2 [facility] Comment on above: Performed By: #### C K, HSTROPN, CMP, BNP #### [facility] [address] [address] [address] Tan Oliveros WBC 2-5 Abnormal NONE SEEN [facility] Comment on above: Performed By: #### C K, HSTROPN, CMP, BNP #### [facility] [address] [place] [address] Dr. Tan Oliveros XR CHEST 1 Von 12-08-2022 XR CHEST 1 V EXAM: XR CHEST 1 V HISTORY: SHORTNESS OF BREATH COMPARISON: 02/26/2022 TECHNIQUE: Single view of the FINDINGS: Heart size normal. No focal consolidation, pleural effusion, pulmonary congestion or pneumothorax. IMPRESSION: No acute findings. Electronically authenticated by: AUGUSTINA JAMES Date: 2022-12-08 12:54 Normal [facility] 12-06-2022 Screens [id number]. 00CD:127 Normal [facility] Ambulatory Visit Summaryon 0 12-05-2022 Ambulatory Visit Summary DUC AUSTINQamar Watson :1940 Visit Date:12/05/2022 Ambulatory Visit Instructions Your Diagnosis Enlarged prostate with urinary obstruction Bladder cancer Cancer of kidney Gross hematuria Other obstructive and reflux uropathy Tests Performed Urnls Dip Stick Auto w/o Microscopy POC 01600 Your Care Team Attending Physician - Jian [...] [facility] [address] [place] [address]- Medications What How Much When Instructions Unchanged [...] Urnls Dip Stick Auto w/o Microscopy POC 39005 (12/05/2022) Bilirubin Urine Dipstick - Negative Blood Urine Dipstick - 3+ Large Glucose Urine Dipstick - 1+ 250 mg/dl Ketones Urine Dipstick - Negative Leukocytes Urine Dipstick - 1+ Small Nitrite Urine Dipstick - Negative Protein Urine Dipstick - Trace Specific [place] Urine Dipstick - 1.020 Urine Appearance Urine [...] make (more content not included)... Normal [facility] Patient Educationon 12-05-19 Patient Education Oncology Bladder [...] Follow these instructions at home: ? Take qbqv-ltx-fqsbaxs and prescription medicines only as told by [...] important. Where to find more information ? [place] [employer]: www.cancer.org ? National Cancer [place] (NCI): www.cancer.gov Contact a health care provider [...] 10/02/2004 Document Revised: 09/12/2018 Document Reviewed: 09/03/2017 [employer] Patient Education ? 2020 [employer]. [facility] Urology Office/Clinic Noteon 12-05-2022 Urology Office/Clinic [...] URL [facility] [address] [place] [address]- Additional Instructions: Patient Education Bladder Cancer I, [...] Gross hematuria (more content not included)... Normal [facility] Comment on above: Result Comment: Elec tronically Signed By: Jian RODRIGUEZ MD\.br\Date and Time Signed: 12/05/22 10:43 EST\.br\Electronically Co-Signed By: Priya Moody\.br\Date and Time Co-Signed: 12/05/22 10:40 EST Office Visiton 12-03-2022 Follow-up visit [id number] Juan Jose Austin 1940 M Date Provider Department Center 12/03/2022 [facility]ULIDO [facility] Family History Problem Relation Age of Onset Heart failure Mother Family Status - Relation Status Age at Mother Level of Service:27813 [place] OFFICE/OUTPATIENT ESTABLISHED MOD MDM 30-39 MIN Reason for Visit and Comments: Congestive Heart Failure [127] Hypertension [898118] Atrial Flutter [101] Normal [facility] REFERRAL FOR ADDITIONAL BIOM ARKER AND MOLECULAR TESTINGon 12-03-2022 REFERRAL FOR ADDITIONAL BIOMARKER AND MOLECULAR TESTING Normal [facility] Comment on above: Order Comment: Speci men Type: TISSUE SPECIMENOrdering Facility: [facility] Address: [address] [place] [id number] Result Comment: Requ est has been received for evaluation and the results will be issued separately. Performed By: #### A PMOL ####[facility] [id number] [place] [address] Consultation Noteon 11-27-19 Consultation Note [id number] .00CD:127 Normal [facility] CNOVSPon 11-26-2022 CNOVSP Normal [facility] Albumin SerPl-mCncon 023 Albumin [Mass/Vol] 4.2 g/dL Normal 3.9-4.9 [facility] Comment on above: Order Comment: Speci men Type: BLOOD SPECIMENOrdering Facility: [facility] Address: [address] [place] [address] Performed By: #### 2 777-1, 12150-8, 1751-04 ####[facility] [id number] [place] [address] Basic metabolic 2000 panelon 11-19-2022 Anion gap [Moles/Vol] 11 mmol/L Normal 9-18 [facility] Comment on above: Order Comment: Speci men Type: BLOOD SPECIMENOrdering Facility: [facility] Address: [address] [place] [address] Performed By: #### 2 777-1, 46852-9, 1751-04 ####[facility] LABIA [id number] [place] [address] Calcium [Mass/Vol] 9.2 mg/dL Normal 8.5-10.2 [facility] Comment on above: Order Comment: Speci men Type: BLOOD SPECIMENOrdering Facility: [facility] Address: [address] [place] [address] Performed By: #### 2 777-1, 06632-2, 1751-04 ####[facility] [id number] [place] [address] Chloride [Moles/Vol] 102 mmol/L Normal 97-105 [facility] Comment on above: Order Comment: Speci men Type: BLOOD SPECIMENOrdering Facility: [facility] Address: [address] [place], [place] [id number] Performed By: #### 2 777-1, 43388-4, 1751-04 ####[facility] [id number] [place] [address] CO2 [Moles/Vol] 26 mmol/L Normal 22-30 [facility] Comment on above: Order Comment: Speci men Type: BLOOD SPECIMENOrdering Facility: [facility] Address: [address] [address] Performed By: #### 2 777-1, 42788-2, 1751-04 ####[facility] [id number] [place] [address] Creatinine [Mass/Vol] 4.74 mg/dL High 0.73-1.22 [facility] Comment on above: Order Comment: Speci men Type: BLOOD SPECIMENOrdering Facility: [facility] Address: [address] [address] Performed By: #### 2 777-1, 67187-8, 1751-04 ####[facility] LABIA [id number] [place] [address] ESTIMATED GLOMERULAR FILTRATION RATE 12 mL/min/1.73m??? Low >=60 [facility] Comment on above: Order Comment: Speci men Type: BLOOD SPECIMENOrdering Facility: [facility] Address: [address] [address] Result Comment: Viviana mated Glomerular Filtration Rate [...] actual GFR. Performed By: #### 2 777-1, 27366-6, 1751-04 ####[facility] LABIA [id number] [place] [address] Glucose [Mass/Vol] 95 mg/dL Normal 74-99 [facility] Comment on above: Order Comment: Speci men Type: BLOOD SPECIMENOrdering Facility: [facility] Address: [address] Result Comment: The [place] Diabetes Association (ADA) provides guidance for cutoff [...] Standards of Medical Care in Diabetes 2016, [place] [employer]. Diabetes Care. 2016.39(Suppl 1). Performed By: #### 2 777-1, 65882-1, 1751-04 ####[facility] [id number] [place] [address] Potassium [Moles/Vol] 4.7 mmol/L Normal 3.7-5.1 [facility] Comment on above: Order Comment: Speci men Type: BLOOD SPECIMENOrdering Facility: [facility] Address: [address] [id number] Performed By: #### 2 777-1, 46804-5, 1751-04 ####[facility] [id number] [place] [address] Sodium [Moles/Vol] 139 mmol/L Normal 136-144 [facility] Comment on above: Order Comment: Speci men Type: BLOOD SPECIMENOrdering Facility: [facility] Address: [address] [phone] Performed By: #### 2 777-1, 73246-4, 1751-04 ####[facility] [id number] [place] [address] Urea nitrogen [Mass/Vol] 60 mg/dL High 9-24 [facility] Comment on above: Order Comment: Speci men Type: BLOOD SPECIMENOrdering Facility: [facility] Address: [address] Performed By: #### 2 777-1, 85665-5, 1751-7 ####[facility] LABCLIA [id number] [place] [address] CBC panel Auto (Bld)on 11-19 Erythrocyte distribution width (RBC) [Ratio] 17.7 % High 11.5-15.0 [facility] Comment on above: Order Comment: Speci men Type: BLOOD SPECIMENOrdering Facility: [facility] Address: [address] [place] [address] Performed By: #### 5 8410-2 ####[facility] LABIA [id number] [place] [address] Hematocrit (Bld) [Volume fraction] 37.9 % Low 39.0-51.0 [facility] Comment on above: Order Comment: Speci men Type: BLOOD SPECIMENOrdering Facility: [facility] Address: [address] [place] [address] Performed By: #### 5 8410-2 ####[facility] LABIA [id number] [place] [address] Hemoglobin (Bld) [Mass/Vol] 12.0 g/dL Low 13.0-17.0 [facility] Comment on above: Order Comment: Speci men Type: BLOOD SPECIMENOrdering Facility: [facility] Address: [address] [place] [address] Performed By: #### 5 8410-2 ####[facility] LABCLIA [id number] [place] [address] MCH (RBC) [Entitic mass] 25.1 pg Low 26.0-34.0 [facility] Comment on above: Order Comment: Speci men Type: BLOOD SPECIMENOrdering Facility: [facility] Address: [address] [place] [address] Performed By: #### 5 8410-2 ####[facility]CL[facility] [id number] [place] [address] MCHC (RBC) [Mass/Vol] 31.7 g/dL Normal 30.5-36.0 [facility] Comment on above: Order Comment: Speci men Type: BLOOD SPECIMENOrdering Facility: [facility] Address: [address] [place] [address] Performed By: #### 5 8410-2 ####[facility] LABCLIA [id number] [place] [address] MCV (RBC) [Entitic vol] 79.3 fL Low 80.0-100.0 [facility] Comment on above: Order Comment: Speci men Type: BLOOD SPECIMENOrdering Facility: [facility] Address: [address] [place] [address] Performed By: #### 5 8410-2 ####[facility] LABIA [id number] [place] [address] Nucleated RBC (Bld) [#/Vol] 10*3/uL Normal <0.01 [facility] Comment on above: Order Comment: Speci men Type: BLOOD SPECIMENOrdering Facility: [facility] Address: [address] [place] [address] Performed By: #### 5 8410-2 ####[facility] LABIA [id number] [place] [address] Platelet mean volume (Bld) [Entitic vol] 8.9 fL Low 9.0-12.7 [facility] Comment on above: Order Comment: Speci men Type: BLOOD SPECIMENOrdering Facility: [facility] Address: [address] [place] [address] Performed By: #### 5 8410-2 ####[facility] LABIA [id number] [place] [address] Platelets (Bld) [#/Vol] 228 10*3/uL Normal 150-400 [facility] Comment on above: Order Comment: Speci men Type: BLOOD SPECIMENOrdering Facility: [facility] Address: [address] [address] Performed By: #### 5 8410-2 ####[facility]IA [id number] [place] [address] RBC (Bld) [#/Vol] 4.78 10*6/uL Normal 4.20-6.00 [facility] Comment on above: Order Comment: Speci men Type: BLOOD SPECIMENOrdering Facility: [facility] Address: [address] [address] Performed By: #### 5 8410-2 ####[facility] LABIA [id number] [place] [address] WBC (Bld) [#/Vol] 7.09 10*3/uL Normal 3.70-11.00 [facility] Comment on above: Order Comment: Speci men Type: BLOOD SPECIMENOrdering Facility: [facility] Address: [address] [place] [address] Performed By: #### 5 8410-2 ####[facility] LABIA [id number] [place] [address] Phosphate SerPl-mCncon 11-19 Phosphate [Mass/Vol] 3.5 mg/dL Normal 2.7-4.8 [facility] Comment on above: Order Comment: Speci men Type: BLOOD SPECIMENOrdering Facility: [facility] Address: [address] [place] [address] Performed By: #### 2 777-1, 49985-6, 1751-7 ####[facility] LABIA [id number] [place] [address] Basic metabolic 2000 panelon 11-18-2022 Anion gap [Moles/Vol] 12 mmol/L Normal 9-18 [facility] Comment on above: Order Comment: Speci men Type: BLOOD SPECIMENOrdering Facility: [facility] Address: [address] [place] [address] Performed By: #### 2 4321-2 ####[facility] LABCLIA [id number] [place] [address] [place] Calcium [Mass/Vol] 8.1 mg/dL Low 8.5-10.2 [facility] Comment on above: Order Comment: Speci men Type: BLOOD SPECIMENOrdering Facility: [facility] Address: [address] Performed By: #### 2 4321-2 ####[facility] LABCLIA [id number] [place] [address] [place] Chloride [Moles/Vol] 102 mmol/L Normal 97-105 [facility] Comment on above: Order Comment: Speci men Type: BLOOD SPECIMENOrdering Facility: [facility] Address: [address] [place], [place] [address] Performed By: #### 2 4321-2 ####[facility] LABCLIA [id number] [place] [address] [place] CO2 [Moles/Vol] 24 mmol/L Normal 22-30 [facility] Comment on above: Order Comment: Speci men Type: BLOOD SPECIMENOrdering Facility: [facility] Address: [address] [place], [place] [address] Performed By: #### 2 4321-2 ####[facility] LABCLIA [id number] [place] [address] [place] Creatinine [Mass/Vol] 6.19 mg/dL High 0.73-1.22 [facility] Comment on above: Order Comment: Speci men Type: BLOOD SPECIMENOrdering Facility: [facility] Address: [address] Performed By: #### 2 4321-2 ####[facility] LABCLIA [id number] [place] [address] [place] ESTIMATED GLOMERULAR FILTRATION RATE 8 mL/min/1.73m??? Low >=60 [facility] Comment on above: Order Comment: Vero barton Type: BLOOD SPECIMENOrdering Facility: [facility] Address: [address] [place] [address] Result Comment: Viviana mated Glomerular Filtration Rate [...] actual GFR. Performed By: #### 2 4321-2 ####[facility] LABIA [id number] [place] [address] [place] Glucose [Mass/Vol] 93 mg/dL Normal 74-99 [facility] Comment on above: Order Comment: Vero barton Type: BLOOD SPECIMENOrdering Facility: [facility] Address: [address] [place] [address] Result Comment: The [place] Diabetes Association (ADA) provides guidance for cutoff [...] Standards of Medical Care in Diabetes 2016, [place] [employer]. Diabetes Care. 2016.39(Suppl 1). Performed By: #### 2 4321-2 ####[facility] LABIA [id number] [place] [address] [place] Potassium [Moles/Vol] 4.4 mmol/L Normal 3.7-5.1 [facility] Comment on above: Order Comment: Vero barton Type: BLOOD SPECIMENOrdering Facility: [facility] Address: [address] Performed By: #### 2 4321-2 ####[facility] LABCLIA [id number] [place] [address] [place] Sodium [Moles/Vol] 138 mmol/L Normal 136-144 [facility] Comment on above: Order Comment: Speci men Type: BLOOD SPECIMENOrdering Facility: [facility] Address: [address] [address] Performed By: #### 2 4321-2 ####[facility] LABCLIA [id number] [place] [address] [place] Urea nitrogen [Mass/Vol] 66 mg/dL High 9-24 [facility] Comment on above: Order Comment: Speci men Type: BLOOD SPECIMENOrdering Facility: [facility] Address: [address] Performed By: #### 2 4321-2 ####[facility] LABCLIA [id number] [place] [address] [place] CBC panel Auto (Bld)on 11-18 Erythrocyte distribution width (RBC) [Ratio] 17.5 % High 11.5-15.0 [facility] Comment on above: Order Comment: Speci men Type: BLOOD SPECIMENOrdering Facility: [facility] Address: [address] Performed By: #### 5 8410-2 ####[facility] LABCLIA [id number] [place] [address] [place] Hematocrit (Bld) [Volume fraction] 34.3 % Low 39.0-51.0 [facility] Comment on above: Order Comment: Speci men Type: BLOOD SPECIMENOrdering Facility: [facility] Address: [address] Performed By: #### 5 8410-2 ####[facility] LABIA [id number] [place] [address] [place] Hemoglobin (Bld) [Mass/Vol] 11.5 g/dL Low 13.0-17.0 [facility] Comment on above: Order Comment: Speci men Type: BLOOD SPECIMENOrdering Facility: [facility] Address: [address] [place] [address] Performed By: #### 5 8410-2 ####[facility] [id number] [place] [address] [place] MCH (RBC) [Entitic mass] 25.6 pg Low 26.0-34.0 [facility] Comment on above: Order Comment: Speci men Type: BLOOD SPECIMENOrdering Facility: [facility] Address: [address] [place] [address] Performed By: #### 5 8410-2 ####[facility] [id number] [address] [place] MCHC (RBC) [Mass/Vol] 33.5 g/dL Normal 30.5-36.0 [facility] Comment on above: Order Comment: Speci men Type: BLOOD SPECIMENOrdering Facility: [facility] Address: [address] [place] [address] Performed By: #### 5 8410-2 ####[facility] [id number] [address] [place] MCV (RBC) [Entitic vol] 76.4 fL Low 80.0-100.0 [facility] Comment on above: Order Comment: Speci men Type: BLOOD SPECIMENOrdering Facility: [facility] Address: [address] [place] [address] Performed By: #### 5 8410-2 ####[facility] [id number] [place] [address] [place] Nucleated RBC (Bld) [#/Vol] 10*3/uL Normal <0.01 [facility] Comment on above: Order Comment: Speci men Type: BLOOD SPECIMENOrdering Facility: [facility] Address: [address] [place], [place] [address] Performed By: #### 5 8410-2 ####[facility] LABCLIA [id number] [place] [address] [place] Platelet mean volume (Bld) [Entitic vol] 9.8 fL Normal 9.0-12.7 [facility] Comment on above: Order Comment: Speci men Type: BLOOD SPECIMENOrdering Facility: [facility] Address: [address] [place] [address] Performed By: #### 5 8410-2 ####[facility] LABCLIA [id number] [place] [address] [place] Platelets (Bld) [#/Vol] 190 10*3/uL Normal 150-400 [facility] Comment on above: Order Comment: Speci men Type: BLOOD SPECIMENOrdering Facility: [facility] Address: [address] [place] [address] Performed By: #### 5 8410-2 ####[facility] LABCLIA [id number] [place] [address] [place] RBC (Bld) [#/Vol] 4.49 10*6/uL Normal 4.20-6.00 [facility] Comment on above: Order Comment: Speci men Type: BLOOD SPECIMENOrdering Facility: [facility] Address: [address] [place], [place] [address] Performed By: #### 5 8410-2 ####[facility] LABCLIA [id number] [place] [address] [place] WBC (Bld) [#/Vol] 4.35 10*3/uL Normal 3.70-11.00 [facility] Comment on above: Order Comment: Speci men Type: BLOOD SPECIMENOrdering Facility: [facility] Address: [address] Performed By: #### 5 8410-2 ####[facility] LABIA [id number] [place] [address] [place] CNDSon 11-18-2022 CNDS Normal [facility] Basic metabolic 2000 panelon 11-17-2022 Anion gap [Moles/Vol] 14 mmol/L Normal 9-18 [facility] Comment on above: Order Comment: Speci men Type: BLOOD SPECIMENOrdering Facility: [facility] Address: [address] Performed By: #### 2 4321-2 ####[facility] LABIA [id number] [place] [address] [place] Calcium [Mass/Vol] 8.4 mg/dL Low 8.5-10.2 [facility] Comment on above: Order Comment: Speci men Type: BLOOD SPECIMENOrdering Facility: [facility] Address: [address] Performed By: #### 2 4321-2 ####[facility] LABIA [id number] [place] [address] [place] Chloride [Moles/Vol] 96 mmol/L Low 97-105 [facility] Comment on above: Order Comment: Speci men Type: BLOOD SPECIMENOrdering Facility: [facility] Address: [address] [place] [address] Performed By: #### 2 4321-2 ####[facility] LABIA [id number] [place] [address] [place] CO2 [Moles/Vol] 23 mmol/L Normal 22-30 [facility] Comment on above: Order Comment: Speci men Type: BLOOD SPECIMENOrdering Facility: [facility] Address: [address] Performed By: #### 2 4321-2 ####[facility] LABIA [id number] [place] [address] [place] Creatinine [Mass/Vol] 6.75 mg/dL High 0.73-1.22 [facility] Comment on above: Order Comment: Speci men Type: BLOOD SPECIMENOrdering Facility: [facility] Address: [address] Performed By: #### 2 4321-2 ####[facility] LABIA [id number] [place] [address] [place] ESTIMATED GLOMERULAR FILTRATION RATE 8 mL/min/1.73m??? Low >=60 [facility] Comment on above: Order Comment: [place] men Type: BLOOD SPECIMENOrdering Facility: [facility] Address: [address] [place] [address] Result Comment: Viviana mated Glomerular Filtration Rate [...] actual GFR. Performed By: #### 2 4321-2 ####[facility] LABIA [id number] [place] [address] [place] Glucose [Mass/Vol] 109 mg/dL High 74-99 [facility] Comment on above: Order Comment: Speci men Type: BLOOD SPECIMENOrdering Facility: [facility] Address: [address] [address] Result Comment: The [place] Diabetes Association (ADA) provides guidance for cutoff [...] Standards of Medical Care in Diabetes 2016, [place] [employer]. Diabetes Care. 2016.39(Suppl 1). Performed By: #### 2 4321-2 ####[facility] LABCLIA [id number] [place] [address] [place] Potassium [Moles/Vol] 4.6 mmol/L Normal 3.7-5.1 [facility] Comment on above: Order Comment: Speci men Type: BLOOD SPECIMENOrdering Facility: [facility] Address: [address] [place] [address] Performed By: #### 2 4321-2 ####[facility] LABCLIA [id number] [place] [address] [place] Sodium [Moles/Vol] 133 mmol/L Low 136-144 [facility] Comment on above: Order Comment: Speci men Type: BLOOD SPECIMENOrdering Facility: [facility] Address: [address] [place] [address] Performed By: #### 2 4321-2 ####[facility] LABCLIA [id number] [place] [address] [place] Urea nitrogen [Mass/Vol] 66 mg/dL High 9-24 [facility] Comment on above: Order Comment: Speci men Type: BLOOD SPECIMENOrdering Facility: [facility] Address: [address] [address] Performed By: #### 2 4321-2 ####[facility] LABCLIA [id number] [place] [address] [place] Anion gap [Moles/Vol] 14 mmol/L Normal 9-18 [facility] Comment on above: Order Comment: Speci men Type: BLOOD SPECIMENOrdering Facility: [facility] Address: [address] Performed By: #### 2 4321-2 ####[facility] LABCLIA [id number] [place] [address] [place] Calcium [Mass/Vol] 7.8 mg/dL Low 8.5-10.2 [facility] Comment on above: Order Comment: Speci men Type: BLOOD SPECIMENOrdering Facility: [facility] Address: [address] Performed By: #### 2 4321-2 ####[facility] LABCLIA [id number] [place] [address] [place] Chloride [Moles/Vol] 96 mmol/L Low 97-105 [facility] Comment on above: Order Comment: Speci men Type: BLOOD SPECIMENOrdering Facility: [facility] Address: [address] Performed By: #### 2 4321-2 ####[facility] LABCLIA [id number] [place] [address] [place] CO2 [Moles/Vol] 20 mmol/L Low 22-30 [facility] Comment on above: Order Comment: Speci men Type: BLOOD SPECIMENOrdering Facility: [facility] Address: [address] Performed By: #### 2 4321-2 ####[facility] LABCLIA [id number] [place] [address] [place] Creatinine [Mass/Vol] 7.32 mg/dL High 0.73-1.22 [facility] Comment on above: Order Comment: Speci men Type: BLOOD SPECIMENOrdering Facility: [facility] Address: [address] Performed By: #### 2 4321-2 ####[facility] LABCLIA [id number] [place] [address] [place] ESTIMATED GLOMERULAR FILTRATION RATE 7 mL/min/1.73m??? Low >=60 [facility] Comment on above: Order Comment: Vero barton Type: BLOOD SPECIMENOrdering Facility: [facility] Address: [address] [place] [address] Result Comment: Viviana mated Glomerular Filtration Rate [...] actual GFR. Performed By: #### 2 4321-2 ####[facility] LABCLIA [id number] [place] [address] [place] Glucose [Mass/Vol] 105 mg/dL High 74-99 [facility] Comment on above: Order Comment: Vero barton Type: BLOOD SPECIMENOrdering Facility: [facility] Address: [address] [place] [address] Result Comment: The [place] Diabetes Association (ADA) provides guidance for cutoff [...] Standards of Medical Care in Diabetes 2016, [place] [employer]. Diabetes Care. 2016.39(Suppl 1). Performed By: #### 2 4321-2 ####[facility] LABIA [id number] [place] [address] [place] Potassium [Moles/Vol] 4.7 mmol/L Normal 3.7-5.1 [facility] Comment on above: Order Comment: Speci men Type: BLOOD SPECIMENOrdering Facility: [facility] Address: [address] [address] Performed By: #### 2 4321-2 ####[facility] LABCLIA [id number] [place] [address] [place] Sodium [Moles/Vol] 130 mmol/L Low 136-144 [facility] Comment on above: Order Comment: Speci men Type: BLOOD SPECIMENOrdering Facility: [facility] Address: [address] [address] Performed By: #### 2 4321-2 ####[facility] LABIA [id number] [place] [address] [place] Urea nitrogen [Mass/Vol] 71 mg/dL High 9-24 [facility] Comment on above: Order Comment: Speci men Type: BLOOD SPECIMENOrdering Facility: [facility] Address: [address] [address] Performed By: #### 2 4321-2 ####[facility] LABIA [id number] [place] [address] [place] CBC panel Auto (Bld)on 11-17 Erythrocyte distribution width (RBC) [Ratio] 16.9 % High 11.5-15.0 [facility] Comment on above: Order Comment: Speci men Type: BLOOD SPECIMENOrdering Facility: [facility] Address: [address] Performed By: #### 5 8410-2 ####[facility] LABIA [id number] [place] [address] [place] Hematocrit (Bld) [Volume fraction] 32.8 % Low 39.0-51.0 [facility] Comment on above: Order Comment: Speci men Type: BLOOD SPECIMENOrdering Facility: [facility] Address: [address] [place], [place] [address] Performed By: #### 5 8410-2 ####[facility]IA [id number] [address] [place] Hemoglobin (Bld) [Mass/Vol] 11.1 g/dL Low 13.0-17.0 [facility] Comment on above: Order Comment: Speci men Type: BLOOD SPECIMENOrdering Facility: [facility] Address: [address] [place], [place] [address] Performed By: #### 5 8410-2 ####[facility] [id number] [place] [address] [place] MCH (RBC) [Entitic mass] 25.2 pg Low 26.0-34.0 [facility] Comment on above: Order Comment: Speci men Type: BLOOD SPECIMENOrdering Facility: [facility] Address: [address] [place] [address] Performed By: #### 5 8410-2 ####[facility] [id number] [address] [place] MCHC (RBC) [Mass/Vol] 33.8 g/dL Normal 30.5-36.0 [facility] Comment on above: Order Comment: Speci men Type: BLOOD SPECIMENOrdering Facility: [facility] Address: [address] [place], [place] [address] Performed By: #### 5 8410-2 ####[facility] [id number] [address] [place] MCV (RBC) [Entitic vol] 74.4 fL Low 80.0-100.0 [facility] Comment on above: Order Comment: Speci men Type: BLOOD SPECIMENOrdering Facility: [facility] Address: [address] [place], [place] [address] Performed By: #### 5 8410-2 ####[facility] [id number] [id number] [address] [place] Nucleated RBC (Bld) [#/Vol] 10*3/uL Normal <0.01 [facility] Comment on above: Order Comment: Speci men Type: BLOOD SPECIMENOrdering Facility: [facility] Address: [address] [place] [address] Performed By: #### 5 8410-2 ####[facility] LABIA [id number] [place] [address] [place] Platelet mean volume (Bld) [Entitic vol] 10.0 fL Normal 9.0-12.7 [facility] Comment on above: Order Comment: Speci men Type: BLOOD SPECIMENOrdering Facility: [facility] Address: [address] [place] [address] Performed By: #### 5 8410-2 ####[facility] LABCLIA [id number] [place] [address] [place] Platelets (Bld) [#/Vol] 180 10*3/uL Normal 150-400 [facility] Comment on above: Order Comment: Speci men Type: BLOOD SPECIMENOrdering Facility: [facility] Address: [address] [place], [place] [address] Performed By: #### 5 8410-2 ####[facility] [id number] [place] [address] [place] RBC (Bld) [#/Vol] 4.41 10*6/uL Normal 4.20-6.00 [facility] Comment on above: Order Comment: Speci men Type: BLOOD SPECIMENOrdering Facility: [facility] Address: [address] [place], [place] [address] Performed By: #### 5 8410-2 ####[facility] LABCLIA [id number] [place] [address] [place] WBC (Bld) [#/Vol] 5.62 10*3/uL Normal 3.70-11.00 [facility] Comment on above: Order Comment: Speci men Type: BLOOD SPECIMENOrdering Facility: [facility] Address: [address] Performed By: #### 5 8410-2 ####[facility] LABCLIA [id number] [place] [address] [place] Basic metabolic 2000 panelon 11-16-2022 Anion gap [Moles/Vol] 11 mmol/L Normal 9-18 [facility] Comment on above: Order Comment: Speci men Type: BLOOD SPECIMENOrdering Facility: [facility] Address: [address] Performed By: #### 2 4321-2 ####[facility] LABCLIA [id number] [place] [address] [place] Calcium [Mass/Vol] 7.7 mg/dL Low 8.5-10.2 [facility] Comment on above: Order Comment: Speci men Type: BLOOD SPECIMENOrdering Facility: [facility] Address: [address] Performed By: #### 2 4321-2 ####[facility] LABCLIA [id number] [place] [address] [place] Chloride [Moles/Vol] 93 mmol/L Low 97-105 [facility] Comment on above: Order Comment: Speci men Type: BLOOD SPECIMENOrdering Facility: [facility] Address: [address] Performed By: #### 2 4321-2 ####[facility] LABCLIA [id number] [place] [address] [place] CO2 [Moles/Vol] 22 mmol/L Normal 22-30 [facility] Comment on above: Order Comment: Speci men Type: BLOOD SPECIMENOrdering Facility: [facility] Address: [address] Performed By: #### 2 4321-2 ####[facility]CL[facility] [id number] [place] [address] [place] Creatinine [Mass/Vol] 7.38 mg/dL High 0.73-1.22 [facility] Comment on above: Order Comment: Speci men Type: BLOOD SPECIMENOrdering Facility: [facility] Address: [address] [address] Performed By: #### 2 4321-2 ####[facility] [id number] [place] [address] [place] ESTIMATED GLOMERULAR FILTRATION RATE 7 mL/min/1.73m??? Low >=60 [facility] Comment on above: Order Comment: Speci men Type: BLOOD SPECIMENOrdering Facility: [facility] Address: [address] [place] [address] Result Comment: Viviana mated Glomerular Filtration Rate [...] actual GFR. Performed By: #### 2 4321-2 ####[facility] [id number] [place] [address] [place] Glucose [Mass/Vol] 123 mg/dL High 74-99 [facility] Comment on above: Order Comment: Speci men Type: BLOOD SPECIMENOrdering Facility: [facility] Address: [address] [address] Result Comment: The [place] Diabetes Association (ADA) provides guidance for cutoff [...] Standards of Medical Care in Diabetes 2016, [place] [employer]. Diabetes Care. 2016.39(Suppl 1). Performed By: #### 2 4321-2 ####[facility] LABCL[facility] [id number] [place] [address] [place] Potassium [Moles/Vol] 4.8 mmol/L Normal 3.7-5.1 [facility] Comment on above: Order Comment: Speci men Type: BLOOD SPECIMENOrdering Facility: [facility] Address: [address] [place] [address] Performed By: #### 2 4321-2 ####[facility]CL[facility] [id number] [place] [address] [place] Sodium [Moles/Vol] 126 mmol/L Low 136-144 [facility] Comment on above: Order Comment: Speci men Type: BLOOD SPECIMENOrdering Facility: [facility] Address: [address] [place] [address] Performed By: #### 2 4321-2 ####[facility]CL[facility] [id number] [place] [address] [place] Urea nitrogen [Mass/Vol] 69 mg/dL High 9-24 [facility] Comment on above: Order Comment: Speci men Type: BLOOD SPECIMENOrdering Facility: [facility] Address: [address] [address] Performed By: #### 2 4321-2 ####[facility]CL[facility] [id number] [place] [address] [place] Anion gap [Moles/Vol] 14 mmol/L Normal 9-18 [facility] Comment on above: Order Comment: Speci men Type: BLOOD SPECIMENOrdering Facility: [facility] Address: [address] [place] [address] Performed By: #### 2 4321-2 ####[facility]CL[facility] [id number] [place] [address] [place] Calcium [Mass/Vol] 7.9 mg/dL Low 8.5-10.2 [facility] Comment on above: Order Comment: Speci men Type: BLOOD SPECIMENOrdering Facility: [facility] Address: [address] Performed By: #### 2 4321-2 ####[facility] LABCL[facility] [id number] [place] [address] [place] Chloride [Moles/Vol] 93 mmol/L Low 97-105 [facility] Comment on above: Order Comment: Speci men Type: BLOOD SPECIMENOrdering Facility: [facility] Address: [address] [place], [place] [address] Performed By: #### 2 4321-2 ####[facility]CL[facility] [id number] [place] [address] [place] CO2 [Moles/Vol] 20 mmol/L Low 22-30 [facility] Comment on above: Order Comment: Speci men Type: BLOOD SPECIMENOrdering Facility: [facility] Address: [address] [place], [place] [address] Performed By: #### 2 4321-2 ####[facility] LABCLIA [id number] [place] [address] [place] Creatinine [Mass/Vol] 7.41 mg/dL High 0.73-1.22 [facility] Comment on above: Order Comment: Speci men Type: BLOOD SPECIMENOrdering Facility: [facility] Address: [address] Performed By: #### 2 4321-2 ####[facility] LABCLIA [id number] [place] [address] [place] ESTIMATED GLOMERULAR FILTRATION RATE 7 mL/min/1.73m??? Low >=60 [facility] Comment on above: Order Comment: Vero barton Type: BLOOD SPECIMENOrdering Facility: [facility] Address: [address] [place] [address] Result Comment: Viviana mated Glomerular Filtration Rate [...] actual GFR. Performed By: #### 2 4321-2 ####[facility] LABIA [id number] [place] [address] [place] Glucose [Mass/Vol] 95 mg/dL Normal 74-99 [facility] Comment on above: Order Comment: Vero barton Type: BLOOD SPECIMENOrdering Facility: [facility] Address: [address] [place] [address] Result Comment: The [place] Diabetes Association (ADA) provides guidance for cutoff [...] Standards of Medical Care in Diabetes 2016, [place] [employer]. Diabetes Care. 2016.39(Suppl 1). Performed By: #### 2 4321-2 ####[facility] LABIA [id number] [place] [address] [place] Potassium [Moles/Vol] 4.9 mmol/L Normal 3.7-5.1 [facility] Comment on above: Order Comment: Speci men Type: BLOOD SPECIMENOrdering Facility: [facility] Address: [address] [address] Performed By: #### 2 4321-2 ####[facility] LABCLIA [id number] [place] [address] [place] Sodium [Moles/Vol] 127 mmol/L Low 136-144 [facility] Comment on above: Order Comment: Speci men Type: BLOOD SPECIMENOrdering Facility: [facility] Address: [address] [address] Performed By: #### 2 4321-2 ####[facility] LABCLIA [id number] [place] [address] [place] Urea nitrogen [Mass/Vol] 64 mg/dL High 9-24 [facility] Comment on above: Order Comment: Speci men Type: BLOOD SPECIMENOrdering Facility: [facility] Address: [address] [place] [address] Performed By: #### 2 4321-2 ####[facility] LABIA [id number] [place] [address] [place] CASE MANAGEMon 11-16-2022 CASE MANAGEM Normal [facility] CBC panel Auto (Bld)on 11-16 Erythrocyte distribution width (RBC) [Ratio] 16.7 % High 11.5-15.0 [facility] Comment on above: Order Comment: Speci men Type: BLOOD SPECIMENOrdering Facility: [facility] Address: [address] [place] [address] Performed By: #### 5 8410-2 ####[facility] LABIA [id number] [place] [address] [place] Hematocrit (Bld) [Volume fraction] 34.1 % Low 39.0-51.0 [facility] Comment on above: Order Comment: Speci men Type: BLOOD SPECIMENOrdering Facility: [facility] Address: [address] Performed By: #### 5 8410-2 ####[facility] LABIA [id number] [place] [address] [place] Hemoglobin (Bld) [Mass/Vol] 11.5 g/dL Low 13.0-17.0 [facility] Comment on above: Order Comment: Speci men Type: BLOOD SPECIMENOrdering Facility: [facility] Address: [address] Performed By: #### 5 8410-2 ####[facility] LABIA [id number] [place] [address] [place] MCH (RBC) [Entitic mass] 25.2 pg Low 26.0-34.0 [facility] Comment on above: Order Comment: Speci men Type: BLOOD SPECIMENOrdering Facility: [facility] Address: [address] Performed By: #### 5 8410-2 ####[facility] LABIA [id number] [address] [place] MCHC (RBC) [Mass/Vol] 33.7 g/dL Normal 30.5-36.0 [facility] Comment on above: Order Comment: Speci men Type: BLOOD SPECIMENOrdering Facility: [facility] Address: [address] Performed By: #### 5 8410-2 ####[facility] LABIA [id number] [place] [address] [place] MCV (RBC) [Entitic vol] 74.6 fL Low 80.0-100.0 [facility] Comment on above: Order Comment: Speci men Type: BLOOD SPECIMENOrdering Facility: [facility] Address: [address] Performed By: #### 5 8410-2 ####[facility] LABCLIA [id number] [place] [address] [place] Nucleated RBC (Bld) [#/Vol] 10*3/uL Normal <0.01 [facility] Comment on above: Order Comment: Speci men Type: BLOOD SPECIMENOrdering Facility: [facility] Address: [address] [place] [address] Performed By: #### 5 8410-2 ####[facility] LABIA [id number] [place] [address] [place] Platelet mean volume (Bld) [Entitic vol] 9.5 fL Normal 9.0-12.7 [facility] Comment on above: Order Comment: Speci men Type: BLOOD SPECIMENOrdering Facility: [facility] Address: [address] [place] [address] Performed By: #### 5 8410-2 ####[facility] LABIA [id number] [place] [address] [place] Platelets (Bld) [#/Vol] 161 10*3/uL Normal 150-400 [facility] Comment on above: Order Comment: Speci men Type: BLOOD SPECIMENOrdering Facility: [facility] Address: [address] [place] [address] Performed By: #### 5 8410-2 ####[facility] LABIA [id number] [place] [address] [place] RBC (Bld) [#/Vol] 4.57 10*6/uL Normal 4.20-6.00 [facility] Comment on above: Order Comment: Speci men Type: BLOOD SPECIMENOrdering Facility: [facility] Address: [address] [place], [place] [address] Performed By: #### 5 8410-2 ####[facility] LABIA [id number] [place] [address] [place] WBC (Bld) [#/Vol] 5.60 10*3/uL Normal 3.70-11.00 [facility] Comment on above: Order Comment: Speci men Type: BLOOD SPECIMENOrdering Facility: [facility] Address: [address] [place] [address] Performed By: #### 5 8410-2 ####[facility] LABCLIA [id number] [place] [address] [place] CONSULT PROGon 11-16-2022 CONSULT PROG Normal [facility] Basic metabolic 2000 panelon 11-15-2022 Anion gap [Moles/Vol] 13 mmol/L Normal 9-18 [facility] Comment on above: Order Comment: Speci men Type: BLOOD SPECIMENOrdering Facility: [facility] Address: [address] [place] [address] Performed By: #### 2 4321-2 ####[facility] LABCLIA [id number] [place] [address] [place] Calcium [Mass/Vol] 7.9 mg/dL Low 8.5-10.2 [facility] Comment on above: Order Comment: Speci men Type: BLOOD SPECIMENOrdering Facility: [facility] Address: [address] [place] [address] Performed By: #### 2 4321-2 ####[facility] LABCLIA [id number] [place] [address] [place] Chloride [Moles/Vol] 91 mmol/L Low 97-105 [facility] Comment on above: Order Comment: Speci men Type: BLOOD SPECIMENOrdering Facility: [facility] Address: [address] [place] [address] Performed By: #### 2 4321-2 ####[facility] LABCLIA [id number] [place] [address] [place] CO2 [Moles/Vol] 21 mmol/L Low 22-30 [facility] Comment on above: Order Comment: Speci men Type: BLOOD SPECIMENOrdering Facility: [facility] Address: [address] [address] Performed By: #### 2 4321-2 ####[facility] [id number] [address] [place] Creatinine [Mass/Vol] 7.28 mg/dL High 0.73-1.22 [facility] Comment on above: Order Comment: Speci men Type: BLOOD SPECIMENOrdering Facility: [facility] Address: [address] [address] Performed By: #### 2 4321-2 ####[facility] [id number] [address] [place] ESTIMATED GLOMERULAR FILTRATION RATE 7 mL/min/1.73m??? Low >=60 [facility] Comment on above: Order Comment: Speci men Type: BLOOD SPECIMENOrdering Facility: [facility] Address: [address] [place] [address] Result Comment: Viviana mated Glomerular Filtration Rate [...] actual GFR. Performed By: #### 2 4321-2 ####[facility] LABIA [id number] [place] [address] [place] Glucose [Mass/Vol] 135 mg/dL High 74-99 [facility] Comment on above: Order Comment: [place] men Type: BLOOD SPECIMENOrdering Facility: [facility] Address: [address] [place] [address] Result Comment: The [place] Diabetes Association (ADA) provides guidance for cutoff [...] Standards of Medical Care in Diabetes 2016, [place] [employer]. Diabetes Care. 2016.39(Suppl 1). Performed By: #### 2 4321-2 ####[facility] LABCLIA [id number] [place] [address] [place] Potassium [Moles/Vol] 4.6 mmol/L Normal 3.7-5.1 [facility] Comment on above: Order Comment: Speci men Type: BLOOD SPECIMENOrdering Facility: [facility] Address: [address] [place] [address] Performed By: #### 2 4321-2 ####[facility] LABIA [id number] [place] [address] [place] Sodium [Moles/Vol] 125 mmol/L Low 136-144 [facility] Comment on above: Order Comment: Speci men Type: BLOOD SPECIMENOrdering Facility: [facility] Address: [address] [address] Performed By: #### 2 4321-2 ####[facility] LABIA [id number] [place] [address] [place] Urea nitrogen [Mass/Vol] 66 mg/dL High 9-24 [facility] Comment on above: Order Comment: Speci men Type: BLOOD SPECIMENOrdering Facility: [facility] Address: [address] [address] Performed By: #### 2 4321-2 ####[facility] LABCLIA [id number] [place] [address] [place] Anion gap [Moles/Vol] 13 mmol/L Normal 9-18 [facility] Comment on above: Order Comment: Speci men Type: BLOOD SPECIMENOrdering Facility: [facility] Address: [address] [address] Performed By: #### 2 4321-2 ####[facility] LABCLIA [id number] [place] [address] [place] Calcium [Mass/Vol] 7.7 mg/dL Low 8.5-10.2 [facility] Comment on above: Order Comment: Speci men Type: BLOOD SPECIMENOrdering Facility: [facility] Address: [address] Performed By: #### 2 4321-2 ####[facility] LABCLIA [id number] [place] [address] [place] Chloride [Moles/Vol] 91 mmol/L Low 97-105 [facility] Comment on above: Order Comment: Speci men Type: BLOOD SPECIMENOrdering Facility: [facility] Address: [address] Performed By: #### 2 4321-2 ####[facility] LABCLIA [id number] [place] [address] [place] CO2 [Moles/Vol] 19 mmol/L Low 22-30 [facility] Comment on above: Order Comment: Speci men Type: BLOOD SPECIMENOrdering Facility: [facility] Address: [address] Performed By: #### 2 4321-2 ####[facility] LABCLIA [id number] [place] [address] [place] Creatinine [Mass/Vol] 6.43 mg/dL High 0.73-1.22 [facility] Comment on above: Order Comment: Speci men Type: BLOOD SPECIMENOrdering Facility: [facility] Address: [address] Performed By: #### 2 4321-2 ####[facility] LABCLIA [id number] [place] [address] [place] ESTIMATED GLOMERULAR FILTRATION RATE 8 mL/min/1.73m??? Low >=60 [facility] Comment on above: Order Comment: Vero barton Type: BLOOD SPECIMENOrdering Facility: [facility] Address: [address] [address] Result Comment: Viviana mated Glomerular Filtration Rate [...] actual GFR. Performed By: #### 2 4321-2 ####[facility] LABIA [id number] [place] [address] [place] Glucose [Mass/Vol] 104 mg/dL High 74-99 [facility] Comment on above: Order Comment: Vero barton Type: BLOOD SPECIMENOrdering Facility: [facility] Address: [address] [place] [address] Result Comment: The [place] Diabetes Association (ADA) provides guidance for cutoff [...] Standards of Medical Care in Diabetes 2016, [place] [employer]. Diabetes Care. 2016.39(Suppl 1). Performed By: #### 2 4321-2 ####[facility] LABIA [id number] [id number] [address] [place] Potassium [Moles/Vol] 5.1 mmol/L Normal 3.7-5.1 [facility] Comment on above: Order Comment: Speci men Type: BLOOD SPECIMENOrdering Facility: [facility] Address: [address] [place] [address] Performed By: #### 2 4321-2 ####[facility] LABCLIA [id number] [place] [address] [place] Sodium [Moles/Vol] 123 mmol/L Low 136-144 [facility] Comment on above: Order Comment: Speci men Type: BLOOD SPECIMENOrdering Facility: [facility] Address: [address] [place] [address] Performed By: #### 2 4321-2 ####[facility] LABCLIA [id number] [place] [address] [place] Urea nitrogen [Mass/Vol] 60 mg/dL High 9-24 [facility] Comment on above: Order Comment: Speci men Type: BLOOD SPECIMENOrdering Facility: [facility] Address: [address] [place] [address] Performed By: #### 2 4321-2 ####[facility] LABCLIA [id number] [place] [address] [place] CASE MGT INIT ASSESon 2022 CASE MGT INIT ASSES Normal [facility] CBC panel Auto (Bld)on 11-15 Erythrocyte distribution width (RBC) [Ratio] 16.6 % High 11.5-15.0 [facility] Comment on above: Order Comment: Speci men Type: BLOOD SPECIMENOrdering Facility: [facility] Address: [address] [place], [place] [address] Performed By: #### 5 8410-2 ####[facility] LABCLIA [id number] [place] [address] [place] Hematocrit (Bld) [Volume fraction] 33.8 % Low 39.0-51.0 [facility] Comment on above: Order Comment: Speci men Type: BLOOD SPECIMENOrdering Facility: [facility] Address: [address] [place] [address] Performed By: #### 5 8410-2 ####[facility] LABCLIA [id number] [place] [address] [place] Hemoglobin (Bld) [Mass/Vol] 11.5 g/dL Low 13.0-17.0 [facility] Comment on above: Order Comment: Speci men Type: BLOOD SPECIMENOrdering Facility: [facility] Address: [address] [place] [address] Performed By: #### 5 8410-2 ####[facility] LABCLIA [id number] [place] [address] [place] MCH (RBC) [Entitic mass] 25.4 pg Low 26.0-34.0 [facility] Comment on above: Order Comment: Speci men Type: BLOOD SPECIMENOrdering Facility: [facility] Address: [address] [place] [address] Performed By: #### 5 8410-2 ####[facility] LABIA [id number] [place] [address] [place] MCHC (RBC) [Mass/Vol] 34.0 g/dL Normal 30.5-36.0 [facility] Comment on above: Order Comment: Speci men Type: BLOOD SPECIMENOrdering Facility: [facility] Address: [address] [place], [place] [address] Performed By: #### 5 8410-2 ####[facility] LABCLIA [id number] [place] [address] [place] MCV (RBC) [Entitic vol] 74.8 fL Low 80.0-100.0 [facility] Comment on above: Order Comment: Speci men Type: BLOOD SPECIMENOrdering Facility: [facility] Address: [address] [place] [address] Performed By: #### 5 8410-2 ####[facility] LABCLIA [id number] [place] [address] [place] Nucleated RBC (Bld) [#/Vol] 10*3/uL Normal <0.01 [facility] Comment on above: Order Comment: Speci men Type: BLOOD SPECIMENOrdering Facility: [facility] Address: [address] Performed By: #### 5 8410-2 ####[facility] LABCLIA [id number] [place] [address] [place] Platelet mean volume (Bld) [Entitic vol] 10.1 fL Normal 9.0-12.7 [facility] Comment on above: Order Comment: Speci men Type: BLOOD SPECIMENOrdering Facility: [facility] Address: [address] Performed By: #### 5 8410-2 ####[facility] LABCLIA [id number] [place] [address] [place] Platelets (Bld) [#/Vol] 146 10*3/uL Low 150-400 [facility] Comment on above: Order Comment: Speci men Type: BLOOD SPECIMENOrdering Facility: [facility] Address: [address] Performed By: #### 5 8410-2 ####[facility] LABCLIA [id number] [place] [address] [place] RBC (Bld) [#/Vol] 4.52 10*6/uL Normal 4.20-6.00 [facility] Comment on above: Order Comment: Speci men Type: BLOOD SPECIMENOrdering Facility: [facility] Address: [address] Performed By: #### 5 8410-2 ####[facility] LABCLIA [id number] [place] [address] [place] WBC (Bld) [#/Vol] 7.44 10*3/uL Normal 3.70-11.00 [facility] Comment on above: Order Comment: Speci men Type: BLOOD SPECIMENOrdering Facility: [facility] Address: [address] [address] Performed By: #### 5 8410-2 ####[facility] LABIA [id number] [place] [address] [place] CONSULT PROGon 11-15-2022 CONSULT PROG Normal [facility] CT CHEST WO IVCONon 11-15-19 CT CHEST WO IVCON Normal [facility] CT FLANK WO IVCONon 11-15-19 CT FLANK WO IVCON Normal [facility] Comprehensive metabolic 2000 panelon 11-15-2022 Albumin [Mass/Vol] 3.3 g/dL Low 3.9-4.9 [facility] Comment on above: Order Comment: Speci men Type: BLOOD SPECIMENOrdering Facility: [facility] Address: [address] Performed By: #### 2 4323-8 ####[facility] LABIA [id number] [place] [address] [place] ALP [Catalytic activity/Vol] 61 U/L Normal 38-113 [facility] Comment on above: Order Comment: Speci men Type: BLOOD SPECIMENOrdering Facility: [facility] Address: [address] Performed By: #### 2 4323-8 ####[facility] LABIA [id number] [place] [address] [place] ALT [Catalytic activity/Vol] U/L Low 10-54 [facility] Comment on above: Order Comment: Speci men Type: BLOOD SPECIMENOrdering Facility: [facility] Address: [address] [place] [address] Result Comment: Resu lt rechecked. Performed By: #### 2 4323-8 ####[facility] LABCLIA [id number] [place] [address] [place] Anion gap [Moles/Vol] 15 mmol/L Normal 9-18 [facility] Comment on above: Order Comment: Speci men Type: BLOOD SPECIMENOrdering Facility: [facility] Address: [address] Performed By: #### 2 4323-8 ####[facility] LABCLIA [id number] [place] [address] [place] AST [Catalytic activity/Vol] 17 U/L Normal 14-40 [facility] Comment on above: Order Comment: Speci men Type: BLOOD SPECIMENOrdering Facility: [facility] Address: [address] [address] Performed By: #### 2 4323-8 ####[facility] LABCLIA [id number] [place] [address] [place] Bilirubin [Mass/Vol] 0.3 mg/dL Normal 0.2-1.3 [facility] Comment on above: Order Comment: Speci men Type: BLOOD SPECIMENOrdering Facility: [facility] Address: [address] Performed By: #### 2 4323-8 ####[facility] LABCLIA [id number] [place] [address] [place] Calcium [Mass/Vol] 8.0 mg/dL Low 8.5-10.2 [facility] Comment on above: Order Comment: Speci men Type: BLOOD SPECIMENOrdering Facility: [facility] Address: [address] Performed By: #### 2 4323-8 ####[facility] LABCLIA [id number] [place] [address] [place] Chloride [Moles/Vol] 89 mmol/L Low 97-105 [facility] Comment on above: Order Comment: Speci men Type: BLOOD SPECIMENOrdering Facility: [facility] Address: [address] [place] [address] Performed By: #### 2 4323-8 ####[facility] LABCLIA [id number] [place] [address] [place] CO2 [Moles/Vol] 19 mmol/L Low 22-30 [facility] Comment on above: Order Comment: Speci men Type: BLOOD SPECIMENOrdering Facility: [facility] Address: [address] [place] [address] Performed By: #### 2 4323-8 ####[facility] LABCLIA [id number] [place] [address] [place] Creatinine [Mass/Vol] 7.01 mg/dL High 0.73-1.22 [facility] Comment on above: Order Comment: Speci men Type: BLOOD SPECIMENOrdering Facility: [facility] Address: [address] [place] [address] Performed By: #### 2 4323-8 ####[facility] LABCLIA [id number] [address] [place] ESTIMATED GLOMERULAR FILTRATION RATE 7 mL/min/1.73m??? Low >=60 [facility] Comment on above: Order Comment: Speci men Type: BLOOD SPECIMENOrdering Facility: [facility] Address: [address] [place] [address] Result Comment: Viviana mated Glomerular Filtration Rate [...] actual GFR. Performed By: #### 2 4323-8 ####[facility] LABCLIA [id number] [place] [address] [place] Glucose [Mass/Vol] 113 mg/dL High 74-99 [facility] Comment on above: Order Comment: Speci men Type: BLOOD SPECIMENOrdering Facility: [facility] Address: [address] [place] [address] Result Comment: The [place] Diabetes Association (ADA) provides guidance for cutoff [...] Standards of Medical Care in Diabetes 2016, [place] [employer]. Diabetes Care. 2016.39(Suppl 1). Performed By: #### 2 4323-8 ####[facility] LABIA [id number] [place] [address] [place] Potassium [Moles/Vol] 4.6 mmol/L Normal 3.7-5.1 [facility] Comment on above: Order Comment: Speci men Type: BLOOD SPECIMENOrdering Facility: [facility] Address: [address] [address] Performed By: #### 2 4323-8 ####[facility] LABIA [id number] [place] [address] [place] Protein [Mass/Vol] 5.3 g/dL Low 6.3-8.0 [facility] Comment on above: Order Comment: Speci men Type: BLOOD SPECIMENOrdering Facility: [facility] Address: [address] [address] Performed By: #### 2 4323-8 ####[facility] LABIA [id number] [place] [address] [place] Sodium [Moles/Vol] 123 mmol/L Low 136-144 [facility] Comment on above: Order Comment: Speci men Type: BLOOD SPECIMENOrdering Facility: [facility] Address: [address] [place] [address] Performed By: #### 2 4323-8 ####[facility] LABIA [id number] [place] [address] [place] Urea nitrogen [Mass/Vol] 67 mg/dL High 9-24 [facility] Comment on above: Order Comment: Speci men Type: BLOOD SPECIMENOrdering Facility: [facility] Address: [address] [place] [address] Performed By: #### 2 4323-8 ####[facility] [id number] [place] [address] [place] Creatinine Unsp time (U) [Ma ss/Vol]on 11-15-2022 Creatinine (U) [Mass/Vol] 27.7 mg/dL Normal 20.0-300.0 [facility] Comment on above: Order Comment: Speci men Type: URINE SPECIMENOrdering Facility: [facility] Address: [address] [place] [address] Performed By: #### 3 5674-1, 53217-9 ####[facility] [id number] [place] [address] [place] NURSING PROGon 11-15-2022 NURSING PROG Normal [facility] NURSING PROG Normal [facility] Osmolality SerPlon Osmolality [Osmolality] 282 mosm/kg Normal 275-300 [facility] Comment on above: Order Comment: Speci men Type: BLOOD SPECIMENOrdering Facility: [facility] Address: [address] [place] [address] Performed By: #### 2 692-2 ####[facility] [id number] [place] [address] [place] Osmolality Uron 11-15-2022 Osmolality (U) [Osmolality] 168 mosm/kg Normal 50-1200 [facility] Comment on above: Order Comment: Speci men Type: URINE SPECIMENOrdering Facility: [facility] Address: [address] [place] [address] Performed By: #### 2 695-5 ####[facility] [id number] [place] [address] [place] Sodium ?Tm Ur-sCncon 023 Sodium Unsp time (U) [Moles/Vol] 40 mmol/L Normal 14-216 [facility] Comment on above: Order Comment: Speci men Type: URINE SPECIMENOrdering Facility: [facility] Address: [address] [place], [place] [address] Performed By: #### 3 5674-1, 53201-6 ####[facility] [id number] [place] [address] [place] Urinalysis complete panel (U )on 11-15-2022 Bilirubin Ql (U) Negative Normal Negative [facility] Comment on above: Order Comment: Speci men Type: URINE SPECIMENOrdering Facility: [facility] Address: [address] [place], [place] [address] Performed By: #### 2 4356-8 ####[facility] [id number] [place] [address] [place] Clarity (Unsp spec) Turbid Abnormal Clear [facility] Comment on above: Order Comment: Speci men Type: URINE SPECIMENOrdering Facility: [facility] Address: [address] [place], [place] [address] Performed By: #### 2 4356-8 ####[facility] [id number] [address] [place] Color (U) Red Abnormal Yellow [facility] Comment on above: Order Comment: Speci men Type: URINE SPECIMENOrdering Facility: [facility] Address: [address] Performed By: #### 2 4356-8 ####[facility] [id number] [place] [address] [place] Glucose Test strip (U) [Mass/Vol] Negative Normal Trace, Negative [facility] Comment on above: Order Comment: Speci men Type: URINE SPECIMENOrdering Facility: [facility] Address: [address] Performed By: #### 2 4356-8 ####[facility] [id number] [place] [address] [place] Hemoglobin Ql (U) 3+ Abnormal Negative, Trace [facility] Comment on above: Order Comment: Speci men Type: URINE SPECIMENOrdering Facility: [facility] Address: [address] Performed By: #### 2 4356-8 ####[facility] [id number] [place] [address] [place] Ketones Ql (U) Negative Normal Trace, Negative [facility] Comment on above: Order Comment: Speci men Type: URINE SPECIMENOrdering Facility: [facility] Address: [address] Performed By: #### 2 4356-8 ####[facility] [id number] [place] [address] [place] Leukocyte esterase Test strip Ql (U) 500 Evelia/mL Abnormal Negative, 25 Evelia/mL [facility] Comment on above: Order Comment: Speci men Type: URINE SPECIMENOrdering Facility: [facility] Address: [address] Performed By: #### 2 4356-8 ####[facility] [id number] [place] [address] [place] Nitrite Ql (U) Negative Normal Negative [facility] Comment on above: Order Comment: Speci men Type: URINE SPECIMENOrdering Facility: [facility] Address: [address] [place] [address] Performed By: #### 2 4356-8 ####[facility] [id number] [place] [address] [place] pH (U) 6.5 [pH] Normal 5.0-8.0 [facility] Comment on above: Order Comment: Speci men Type: URINE SPECIMENOrdering Facility: [facility] Address: [address] [place] [address] Performed By: #### 2 4356-8 ####[facility] [id number] [address] Protein (U) [Mass/Vol] 2+ Abnormal Trace , Negative [facility] Comment on above: Order Comment: Speci men Type: URINE SPECIMENOrdering Facility: [facility] Address: [address] [place] [address] Performed By: #### 2 4356-8 ####[facility] [id number] [place] [address] [place] RBC LM.HPF (Urine sed) [#/Area] /[HPF] Abnormal 0-3 /HPF [facility] Comment on above: Order Comment: Speci men Type: URINE SPECIMENOrdering Facility: [facility] Address: [address] [place] [address] Performed By: #### 2 4356-8 ####[facility] [id number] [place] [address] [place] Specific gravity (U) [Rel density] 1.011 Normal 1.005-1.030 [facility] Comment on above: Order Comment: Speci men Type: URINE SPECIMENOrdering Facility: [facility] Address: [address] Performed By: #### 2 4356-8 ####[facility] [id number] [place] [address] [place] Urobilinogen Ql (U) Negative Normal Negative [facility] Comment on above: Order Comment: Speci men Type: URINE SPECIMENOrdering Facility: [facility] Address: [address] Performed By: #### 2 4356-8 ####[facility] [id number] [place] [address] [place] WBC LM.HPF (Urine sed) [#/Area] /[HPF] Abnormal 0-5 /HPF [facility] Comment on above: Order Comment: Speci men Type: URINE SPECIMENOrdering Facility: [facility] Address: [address] Performed By: #### 2 4356-8 ####[facility] [id number] [place] [address] [place] Basic metabolic 2000 panelon 11-14-2022 Anion gap [Moles/Vol] 12 mmol/L Normal 9-18 [facility] Comment on above: Order Comment: Speci men Type: BLOOD SPECIMENOrdering Facility: [facility] Address: [address] Performed By: #### 2 4321-2 ####[facility] [id number] [place] [address] [place] Calcium [Mass/Vol] 7.8 mg/dL Low 8.5-10.2 [facility] Comment on above: Order Comment: Speci men Type: BLOOD SPECIMENOrdering Facility: [facility] Address: [address] Performed By: #### 2 4321-2 ####[facility] [id number] [place] [address] [place] Chloride [Moles/Vol] 91 mmol/L Low 97-105 [facility] Comment on above: Order Comment: Speci men Type: BLOOD SPECIMENOrdering Facility: [facility] Address: [address] [place] [address] Performed By: #### 2 4321-2 ####[facility] [id number] [place] [address] [place] CO2 [Moles/Vol] 20 mmol/L Low 22-30 [facility] Comment on above: Order Comment: Speci men Type: BLOOD SPECIMENOrdering Facility: [facility] Address: [address] [place] [address] Performed By: #### 2 4321-2 ####[facility] [id number] [place] [address] [place] Creatinine [Mass/Vol] 6.23 mg/dL High 0.73-1.22 [facility] Comment on above: Order Comment: Speci men Type: BLOOD SPECIMENOrdering Facility: [facility] Address: [address] [place] [address] Performed By: #### 2 4321-2 ####[facility] [id number] [address] OF [facility] ESTIMATED GLOMERULAR FILTRATION RATE 8 mL/min/1.73m??? Low >=60 [facility] Comment on above: Order Comment: Speci men Type: BLOOD SPECIMENOrdering Facility: [facility] Address: [address] [place] [address] Result Comment: Viviana mated Glomerular Filtration Rate [...] actual GFR. Performed By: #### 2 4321-2 ####[facility] [id number] [place] [address] [place] Glucose [Mass/Vol] 120 mg/dL High 74-99 [facility] Comment on above: Order Comment: Vero men Type: BLOOD SPECIMENOrdering Facility: [facility] Address: [address] [address] Result Comment: The [place] Diabetes Association (ADA) provides guidance for cutoff [...] Standards of Medical Care in Diabetes 2016, [place] [employer]. Diabetes Care. 2016.39(Suppl 1). Performed By: #### 2 4321-2 ####[facility] [id number] [place] [address] [place] Potassium [Moles/Vol] 4.9 mmol/L Normal 3.7-5.1 [facility] Comment on above: Order Comment: Vero men Type: BLOOD SPECIMENOrdering Facility: [facility] Address: [address] [address] Performed By: #### 2 4321-2 ####[facility] [id number] [place] [address] [place] Sodium [Moles/Vol] 123 mmol/L Low 136-144 [facility] Comment on above: Order Comment: Vero barton Type: BLOOD SPECIMENOrdering Facility: [facility] Address: [address] [place] [address] Performed By: #### 2 4321-2 ####[facility] [id number] [place] [address] [place] Urea nitrogen [Mass/Vol] 60 mg/dL High 9-24 [facility] Comment on above: Order Comment: Speci men Type: BLOOD SPECIMENOrdering Facility: [facility] Address: [address] Performed By: #### 2 4321-2 ####[facility] [id number] [place] [address] [place] Anion gap [Moles/Vol] 13 mmol/L Normal 9-18 [facility] Comment on above: Order Comment: Speci men Type: BLOOD SPECIMENOrdering Facility: [facility] Address: [address] [place] [address] Performed By: #### 2 4321-2 ####[facility] [id number] [place] [address] [place] Calcium [Mass/Vol] 7.8 mg/dL Low 8.5-10.2 [facility] Comment on above: Order Comment: Speci men Type: BLOOD SPECIMENOrdering Facility: [facility] Address: [address] [place] [address] Performed By: #### 2 4321-2 ####[facility] [id number] [place] [address] [place] Chloride [Moles/Vol] 92 mmol/L Low 97-105 [facility] Comment on above: Order Comment: Speci men Type: BLOOD SPECIMENOrdering Facility: [facility] Address: [address] Performed By: #### 2 4321-2 ####[facility] [id number] [address] [place] [address] [place] CO2 [Moles/Vol] 17 mmol/L Low 22-30 [facility] Comment on above: Order Comment: Speci men Type: BLOOD SPECIMENOrdering Facility: [facility] Address: [address] [address] Performed By: #### 2 4321-2 ####[facility] [id number] [address] [place] Creatinine [Mass/Vol] 5.72 mg/dL High 0.73-1.22 [facility] Comment on above: Order Comment: Speci men Type: BLOOD SPECIMENOrdering Facility: [facility] Address: [address] [address] Performed By: #### 2 4321-2 ####[facility] [id number] [address] STATES OF [facility] ESTIMATED GLOMERULAR FILTRATION RATE 9 mL/min/1.73m??? Low >=60 [facility] Comment on above: Order Comment: Speci men Type: BLOOD SPECIMENOrdering Facility: [facility] Address: [address] [place] [address] Result Comment: Viviana mated Glomerular Filtration Rate [...] actual GFR. Performed By: #### 2 4321-2 ####[facility] [id number] [place] [address] [place] Glucose [Mass/Vol] 112 mg/dL High 74-99 [facility] Comment on above: Order Comment: Speci men Type: BLOOD SPECIMENOrdering Facility: [facility] Address: [address] [address] Result Comment: The [place] Diabetes Association (ADA) provides guidance for cutoff [...] Standards of Medical Care in Diabetes 2016, [place] [employer]. Diabetes Care. 2016.39(Suppl 1). Performed By: #### 2 4321-2 ####[facility] [id number] [place] [address] [place] Potassium [Moles/Vol] 5.2 mmol/L High 3.7-5.1 [facility] Comment on above: Order Comment: Speci men Type: BLOOD SPECIMENOrdering Facility: [facility] Address: [address] [place] [address] Performed By: #### 2 4321-2 ####[facility] [id number] [place] [address] [place] Sodium [Moles/Vol] 122 mmol/L Low 136-144 [facility] Comment on above: Order Comment: Speci men Type: BLOOD SPECIMENOrdering Facility: [facility] Address: [address] [address] Performed By: #### 2 4321-2 ####[facility] [id number] [place] [address] [place] Urea nitrogen [Mass/Vol] 59 mg/dL High 9-24 [facility] Comment on above: Order Comment: Speci men Type: BLOOD SPECIMENOrdering Facility: [facility] Address: [address] [address] Performed By: #### 2 4321-2 ####[facility] [id number] [place] [address] [place] Anion gap [Moles/Vol] 13 mmol/L Normal 9-18 [facility] Comment on above: Order Comment: Speci men Type: BLOOD SPECIMENOrdering Facility: [facility] Address: [address] [place] [address] Performed By: #### 2 4321-2 ####[facility] [id number] [place] [address] [place] Calcium [Mass/Vol] 8.3 mg/dL Low 8.5-10.2 [facility] Comment on above: Order Comment: Speci men Type: BLOOD SPECIMENOrdering Facility: [facility] Address: [address] [place] [address] Performed By: #### 2 4321-2 ####[facility] [id number] [place] [address] [place] Chloride [Moles/Vol] 93 mmol/L Low 97-105 [facility] Comment on above: Order Comment: Speci men Type: BLOOD SPECIMENOrdering Facility: [facility] Address: [address] [place] [address] Performed By: #### 2 4321-2 ####[facility] [id number] [place] [address] [place] CO2 [Moles/Vol] 21 mmol/L Low 22-30 [facility] Comment on above: Order Comment: Speci men Type: BLOOD SPECIMENOrdering Facility: [facility] Address: [address] [place] [address] Performed By: #### 2 4321-2 ####[facility] [id number] [place] [address] [place] Creatinine [Mass/Vol] 5.04 mg/dL High 0.73-1.22 [facility] Comment on above: Order Comment: Speci men Type: BLOOD SPECIMENOrdering Facility: [facility] Address: [address] [address] Performed By: #### 2 4321-2 ####[facility] [id number] [address] OF [facility] ESTIMATED GLOMERULAR FILTRATION RATE 11 mL/min/1.73m??? Low >=60 [facility] Comment on above: Order Comment: Vero barton Type: BLOOD SPECIMENOrdering Facility: [facility] Address: [address] [address] Result Comment: Viviana mated Glomerular Filtration Rate [...] actual GFR. Performed By: #### 2 4321-2 ####[facility] [id number] [place] [address] [place] Glucose [Mass/Vol] 121 mg/dL High 74-99 [facility] Comment on above: Order Comment: Vero barton Type: BLOOD SPECIMENOrdering Facility: [facility] Address: [address] [place] [address] Result Comment: The [place] Diabetes Association (ADA) provides guidance for cutoff [...] Standards of Medical Care in Diabetes 2016, [place] [employer]. Diabetes Care. 2016.39(Suppl 1). Performed By: #### 2 4321-2 ####[facility] [id number] [place] [address] [place] Potassium [Moles/Vol] 4.4 mmol/L Normal 3.7-5.1 [facility] Comment on above: Order Comment: Speci men Type: BLOOD SPECIMENOrdering Facility: [facility] Address: [address] [place] [address] Performed By: #### 2 4321-2 ####[facility] [id number] [place] [address] [place] Sodium [Moles/Vol] 127 mmol/L Low 136-144 [facility] Comment on above: Order Comment: Speci men Type: BLOOD SPECIMENOrdering Facility: [facility] Address: [address] [place] [address] Performed By: #### 2 4321-2 ####[facility] [id number] [place] [address] [place] Urea nitrogen [Mass/Vol] 49 mg/dL High 9-24 [facility] Comment on above: Order Comment: Speci men Type: BLOOD SPECIMENOrdering Facility: [facility] Address: [address] [place] [address] Performed By: #### 2 4321-2 ####[facility] [id number] [place] [address] [place] CBC W Auto Differential pane l (Bld)on 11-14-2022 Basophils (Bld) [#/Vol] 0.04 10*3/uL Normal <0.11 [facility] Comment on above: Order Comment: Speci men Type: BLOOD SPECIMENOrdering Facility: [facility] Address: [address] [place] [address] Performed By: #### 5 7021-8 ####[facility] [id number] [place] [address] [place] Basophils/100 WBC (Bld) 0.5 % Normal [facility] Comment on above: Order Comment: Speci men Type: BLOOD SPECIMENOrdering Facility: [facility] Address: [address] [place], [place] [address] Performed By: #### 5 7021-8 ####[facility] [id number] [place] [address] [place] Differential cell count method Nom (Bld) Auto Normal [facility] Comment on above: Order Comment: Speci men Type: BLOOD SPECIMENOrdering Facility: [facility] Address: [address] [place], [place] [address] Performed By: #### 5 7021-8 ####[facility] [id number] [place] [address] [place] Eosinophils (Bld) [#/Vol] 0.22 10*3/uL Normal <0.46 [facility] Comment on above: Order Comment: Speci men Type: BLOOD SPECIMENOrdering Facility: [facility] Address: [address] Performed By: #### 5 7021-8 ####[facility] [id number] [place] [address] [place] Eosinophils/100 WBC (Bld) 2.6 % Normal [facility] Comment on above: Order Comment: Speci men Type: BLOOD SPECIMENOrdering Facility: [facility] Address: [address] [place], [place] [address] Performed By: #### 5 7021-8 ####[facility] [id number] [place] [address] [place] Erythrocyte distribution width (RBC) [Ratio] 16.9 % High 11.5-15.0 [facility] Comment on above: Order Comment: Speci men Type: BLOOD SPECIMENOrdering Facility: [facility] Address: [address] [place], [place] [address] Performed By: #### 5 7021-8 ####[facility] [id number] [place] [address] [place] Hematocrit (Bld) [Volume fraction] 34.9 % Low 39.0-51.0 [facility] Comment on above: Order Comment: Speci men Type: BLOOD SPECIMENOrdering Facility: [facility] Address: [address] [place] [address] Performed By: #### 5 7021-8 ####[facility] [id number] [place] [address] [place] Hemoglobin (Bld) [Mass/Vol] 11.9 g/dL Low 13.0-17.0 [facility] Comment on above: Order Comment: Speci men Type: BLOOD SPECIMENOrdering Facility: [facility] Address: [address] [place] [address] Performed By: #### 5 7021-8 ####[facility] [id number] [place] [address] [place] Immature granulocytes (Bld) [#/Vol] 0.03 10*3/uL Normal <0.10 [facility] Comment on above: Order Comment: Speci men Type: BLOOD SPECIMENOrdering Facility: [facility] Address: [address] [place] [address] Performed By: #### 5 7021-8 ####[facility] [id number] [place] [address] [place] Immature granulocytes/100 WBC (Bld) 0.4 % Normal [facility] Comment on above: Order Comment: Speci men Type: BLOOD SPECIMENOrdering Facility: [facility] Address: [address] [place] [address] Performed By: #### 5 7021-8 ####[facility] [id number] [place] [address] [place] Lymphocytes (Bld) [#/Vol] 0.41 10*3/uL Low 1.00-4.00 [facility] Comment on above: Order Comment: Speci men Type: BLOOD SPECIMENOrdering Facility: [facility] Address: [address] [place] [address] Performed By: #### 5 7021-8 ####[facility] [id number] [place] [address] [place] Lymphocytes/100 WBC (Bld) 4.9 % Normal [facility] Comment on above: Order Comment: Speci men Type: BLOOD SPECIMENOrdering Facility: [facility] Address: [address] [place] [address] Performed By: #### 5 7021-8 ####[facility] [id number] [place] [address] [place] MCH (RBC) [Entitic mass] 25.3 pg Low 26.0-34.0 [facility] Comment on above: Order Comment: Speci men Type: BLOOD SPECIMENOrdering Facility: [facility] Address: [address] [place] [address] Performed By: #### 5 7021-8 ####[facility] [id number] [place] [address] [place] MCHC (RBC) [Mass/Vol] 34.1 g/dL Normal 30.5-36.0 [facility] Comment on above: Order Comment: Speci men Type: BLOOD SPECIMENOrdering Facility: [facility] Address: [address] [place], [place] [address] Performed By: #### 5 7021-8 ####[facility] [id number] [place] [address] [place] MCV (RBC) [Entitic vol] 74.1 fL Low 80.0-100.0 [facility] Comment on above: Order Comment: Speci men Type: BLOOD SPECIMENOrdering Facility: [facility] Address: [address] Performed By: #### 5 7021-8 ####[facility] [id number] [place] [address] [place] Monocytes (Bld) [#/Vol] 0.61 10*3/uL Normal <0.87 [facility] Comment on above: Order Comment: Speci men Type: BLOOD SPECIMENOrdering Facility: [facility] Address: [address] Performed By: #### 5 7021-8 ####[facility] [id number] [place] [address] [place] Monocytes/100 WBC (Bld) 7.3 % Normal [facility] Comment on above: Order Comment: Speci men Type: BLOOD SPECIMENOrdering Facility: [facility] Address: [address] [place], [place] [address] Performed By: #### 5 7021-8 ####[facility] [id number] [place] [address] [place] Neutrophils (Bld) [#/Vol] 7.08 10*3/uL Normal 1.45-7.50 [facility] Comment on above: Order Comment: Speci men Type: BLOOD SPECIMENOrdering Facility: [facility] Address: [address] Performed By: #### 5 7021-8 ####[facility] [id number] [place] [address] [place] Neutrophils/100 WBC (Bld) 84.3 % Normal [facility] Comment on above: Order Comment: Speci men Type: BLOOD SPECIMENOrdering Facility: [facility] Address: [address] [place], [place] [address] Performed By: #### 5 7021-8 ####[facility] [id number] [place] [address] [place] Nucleated RBC (Bld) [#/Vol] 10*3/uL Normal <0.01 [facility] Comment on above: Order Comment: Speci men Type: BLOOD SPECIMENOrdering Facility: [facility] Address: [address] [place] [address] Performed By: #### 5 7021-8 ####[facility] [id number] [place] [address] [place] Nucleated RBC/100 WBC (Bld) [Ratio] 0.0 /100 WBC Normal [facility] Comment on above: Order Comment: Speci men Type: BLOOD SPECIMENOrdering Facility: [facility] Address: [address] [place] [address] Performed By: #### 5 7021-8 ####[facility] [id number] [place] [address] [place] Platelet mean volume (Bld) [Entitic vol] 9.4 fL Normal 9.0-12.7 [facility] Comment on above: Order Comment: Speci men Type: BLOOD SPECIMENOrdering Facility: [facility] Address: [address] [place], [place] [address] Performed By: #### 5 7021-8 ####[facility] [id number] [place] [address] [place] Platelets (Bld) [#/Vol] 145 10*3/uL Low 150-400 [facility] Comment on above: Order Comment: Speci men Type: BLOOD SPECIMENOrdering Facility: [facility] Address: [address] [place], [place] [address] Performed By: #### 5 7021-8 ####[facility] [id number] [place] [address] [place] RBC (Bld) [#/Vol] 4.71 10*6/uL Normal 4.20-6.00 [facility] Comment on above: Order Comment: Speci men Type: BLOOD SPECIMENOrdering Facility: [facility] Address: [address] [address] Performed By: #### 5 7021-8 ####[facility] LABCLIA [id number] [place] [address] [place] WBC (Bld) [#/Vol] 8.39 10*3/uL Normal 3.70-11.00 [facility] Comment on above: Order Comment: Speci men Type: BLOOD SPECIMENOrdering Facility: [facility] Address: [address] Performed By: #### 5 7021-8 ####[facility] LABCLIA [id number] [place] [address] [place] CONSULTon 11-14-2022 CONSULT Normal [facility] SARS-CoV-2 RNA Resp Ql ROBERT+p robeon 11-14-2022 SARS-CoV-2 (COVID-19) RNA ROBERT+probe Ql (Resp) COVID 19 RESULT: Not detected The method used is RT-PCR or an equivalent NAAT method. Reference Range(the expected result in uninfected individuals): Not detected Normal [facility] Comment on above: Performed By: #### 9 4500-6 ####[facility] LABIA [id number] [place] [address] [place] Basic metabolic 2000 panelon 11-13-2022 Anion gap [Moles/Vol] 12 mmol/L Normal 9-18 [facility] Comment on above: Order Comment: Speci men Type: BLOOD SPECIMENOrdering Facility: [facility] Address: [address] Performed By: #### 2 4321-2 ####[facility] LABCLIA [id number] [place] [address] [place] Calcium [Mass/Vol] 8.6 mg/dL Normal 8.5-10.2 [facility] Comment on above: Order Comment: Speci men Type: BLOOD SPECIMENOrdering Facility: [facility] Address: [address] [address] Performed By: #### 2 4321-2 ####[facility] LABCLIA [id number] [place] [address] [place] Chloride [Moles/Vol] 102 mmol/L Normal 97-105 [facility] Comment on above: Order Comment: Speci men Type: BLOOD SPECIMENOrdering Facility: [facility] Address: [address] [address] Performed By: #### 2 4321-2 ####[facility] LABCLIA [id number] [place] [address] [place] CO2 [Moles/Vol] 22 mmol/L Normal 22-30 [facility] Comment on above: Order Comment: Speci men Type: BLOOD SPECIMENOrdering Facility: [facility] Address: [address] [place] [address] Performed By: #### 2 4321-2 ####[facility] LABCLIA [id number] [place] [address] [place] Creatinine [Mass/Vol] 2.82 mg/dL High 0.73-1.22 [facility] Comment on above: Order Comment: Speci men Type: BLOOD SPECIMENOrdering Facility: [facility] Address: [address] Performed By: #### 2 4321-2 ####[facility] LABCLIA [id number] [place] [address] [place] ESTIMATED GLOMERULAR FILTRATION RATE 22 mL/min/1.73m??? Low >=60 [facility] Comment on above: Order Comment: Speci men Type: BLOOD SPECIMENOrdering Facility: [facility] Address: [address] [place] [address] Result Comment: Viviana mated Glomerular Filtration Rate [...] actual GFR. Performed By: #### 2 4321-2 ####[facility] LABIA [id number] [place] [address] [place] Glucose [Mass/Vol] 158 mg/dL High 74-99 [facility] Comment on above: Order Comment: Vero barton Type: BLOOD SPECIMENOrdering Facility: [facility] Address: [address] [address] Result Comment: The [place] Diabetes Association (ADA) provides guidance for cutoff [...] Standards of Medical Care in Diabetes 2016, [place] [employer] Association. Diabetes Care. 2016.39(Suppl 1). Performed By: #### 2 4321-2 ####[facility] LABIA [id number] [place] [address] [place] Potassium [Moles/Vol] 4.7 mmol/L Normal 3.7-5.1 [facility] Comment on above: Order Comment: Vero barton Type: BLOOD SPECIMENOrdering Facility: [facility] Address: [address] [id number] Performed By: #### 2 4321-2 ####[facility] LABIA [id number] [address] [place] [address] [place] Sodium [Moles/Vol] 136 mmol/L Normal 136-144 [facility] Comment on above: Order Comment: Speci men Type: BLOOD SPECIMENOrdering Facility: [facility] Address: [address] Performed By: #### 2 4321-2 ####[facility] LABCLIA [id number] [place] [address] [place] Urea nitrogen [Mass/Vol] 37 mg/dL High 9-24 [facility] Comment on above: Order Comment: Speci men Type: BLOOD SPECIMENOrdering Facility: [facility] Address: [address] [address] Performed By: #### 2 4321-2 ####[facility] LABCLIA [id number] [place] [address] [place] CBC W Auto Differential pane l (Bld)on 11-13-2022 Basophils (Bld) [#/Vol] 10*3/uL Normal <0.11 [facility] Comment on above: Order Comment: Speci men Type: BLOOD SPECIMENOrdering Facility: [facility] Address: [address] [place], [place] [address] Performed By: #### 5 7021-8 ####[facility] LABCLIA [id number] [place] [address] [place] Basophils/100 WBC (Bld) 0.1 % Normal [facility] Comment on above: Order Comment: Speci men Type: BLOOD SPECIMENOrdering Facility: [facility] Address: [address] [place], [place] [address] Performed By: #### 5 7021-8 ####[facility] LABCLIA [id number] [place] [address] [place] Differential cell count method Nom (Bld) Auto Normal [facility] Comment on above: Order Comment: Speci men Type: BLOOD SPECIMENOrdering Facility: [facility] Address: [address] [place] [address] Performed By: #### 5 7021-8 ####[facility] LABCLIA [id number] [place] [address] [place] Eosinophils (Bld) [#/Vol] 10*3/uL Normal <0.46 [facility] Comment on above: Order Comment: Speci men Type: BLOOD SPECIMENOrdering Facility: [facility] Address: [address] Performed By: #### 5 7021-8 ####[facility] LABCLIA [id number] [address] [place] Eosinophils/100 WBC (Bld) 0.0 % Normal [facility] Comment on above: Order Comment: Speci men Type: BLOOD SPECIMENOrdering Facility: [facility] Address: [address] [place], [place] [address] Performed By: #### 5 7021-8 ####[facility] LABCLIA [id number] [address] [place] Erythrocyte distribution width (RBC) [Ratio] 16.7 % High 11.5-15.0 [facility] Comment on above: Order Comment: Speci men Type: BLOOD SPECIMENOrdering Facility: [facility] Address: [address] [place] [address] Performed By: #### 5 7021-8 ####[facility] LABCLIA [id number] [address] [place] Hematocrit (Bld) [Volume fraction] 41.3 % Normal 39.0-51.0 [facility] Comment on above: Order Comment: Speci men Type: BLOOD SPECIMENOrdering Facility: [facility] Address: [address] Performed By: #### 5 7021-8 ####[facility] LABCLIA [id number] [place] [address] [place] Hemoglobin (Bld) [Mass/Vol] 13.8 g/dL Normal 13.0-17.0 [facility] Comment on above: Order Comment: Speci men Type: BLOOD SPECIMENOrdering Facility: [facility] Address: [address] [place] [address] Performed By: #### 5 7021-8 ####[facility] LABCLIA [id number] [place] [address] [place] Immature granulocytes (Bld) [#/Vol] 0.04 10*3/uL Normal <0.10 [facility] Comment on above: Order Comment: Speci men Type: BLOOD SPECIMENOrdering Facility: [facility] Address: [address] [place] [address] Performed By: #### 5 7021-8 ####[facility] LABCLIA [id number] [address] [place] Immature granulocytes/100 WBC (Bld) 0.5 % Normal [facility] Comment on above: Order Comment: Speci men Type: BLOOD SPECIMENOrdering Facility: [facility] Address: [address] [place], [place] [address] Performed By: #### 5 7021-8 ####[facility] LABCLIA [id number] [place] [address] [place] Lymphocytes (Bld) [#/Vol] 0.30 10*3/uL Low 1.00-4.00 [facility] Comment on above: Order Comment: Speci men Type: BLOOD SPECIMENOrdering Facility: [facility] Address: [address] [place], [place] [address] Performed By: #### 5 7021-8 ####[facility] LABCLIA [id number] [place] [address] [place] Lymphocytes/100 WBC (Bld) 3.6 % Normal [facility] Comment on above: Order Comment: Speci men Type: BLOOD SPECIMENOrdering Facility: [facility] Address: [address] Performed By: #### 5 7021-8 ####[facility] LABIA [id number] [address] MCH (RBC) [Entitic mass] 25.2 pg Low 26.0-34.0 [facility] Comment on above: Order Comment: Speci men Type: BLOOD SPECIMENOrdering Facility: [facility] Address: [address] Performed By: #### 5 7021-8 ####[facility] [id number] [place] [address] [place] MCHC (RBC) [Mass/Vol] 33.4 g/dL Normal 30.5-36.0 [facility] Comment on above: Order Comment: Speci men Type: BLOOD SPECIMENOrdering Facility: [facility] Address: [address] [place] [address] Performed By: #### 5 7021-8 ####[facility] [id number] [place] [address] [place] MCV (RBC) [Entitic vol] 75.5 fL Low 80.0-100.0 [facility] Comment on above: Order Comment: Speci men Type: BLOOD SPECIMENOrdering Facility: [facility] Address: [address] [place] [address] Performed By: #### 5 7021-8 ####[facility] LABIA [id number] [place] [address] [place] Monocytes (Bld) [#/Vol] 0.15 10*3/uL Normal <0.87 [facility] Comment on above: Order Comment: Speci men Type: BLOOD SPECIMENOrdering Facility: [facility] Address: [address] [place], [place] [address] Performed By: #### 5 7021-8 ####[facility] LABCLIA [id number] [place] [address] [place] Monocytes/100 WBC (Bld) 1.8 % Normal [facility] Comment on above: Order Comment: Speci men Type: BLOOD SPECIMENOrdering Facility: [facility] Address: [address] [place] [address] Performed By: #### 5 7021-8 ####[facility] LABCLIA [id number] [place] [address] [place] Neutrophils (Bld) [#/Vol] 7.89 10*3/uL High 1.45-7.50 [facility] Comment on above: Order Comment: Speci men Type: BLOOD SPECIMENOrdering Facility: [facility] Address: [address] [place] [address] Performed By: #### 5 7021-8 ####[facility] LABCLIA [id number] [place] [address] [place] Neutrophils/100 WBC (Bld) 94.0 % Normal [facility] Comment on above: Order Comment: Speci men Type: BLOOD SPECIMENOrdering Facility: [facility] Address: [address] [place], [place] [address] Performed By: #### 5 7021-8 ####[facility] LABCLIA [id number] [place] [address] [place] Nucleated RBC (Bld) [#/Vol] 10*3/uL Normal <0.01 [facility] Comment on above: Order Comment: Speci men Type: BLOOD SPECIMENOrdering Facility: [facility] Address: [address] [place] [address] Performed By: #### 5 7021-8 ####[facility] LABCLIA [id number] [place] [address] [place] Nucleated RBC/100 WBC (Bld) [Ratio] 0.0 /100 WBC Normal [facility] Comment on above: Order Comment: Speci men Type: BLOOD SPECIMENOrdering Facility: [facility] Address: [address] [place], [place] [address] Performed By: #### 5 7021-8 ####[facility] LABCLIA [id number] [place] [address] [place] Platelet mean volume (Bld) [Entitic vol] 9.3 fL Normal 9.0-12.7 [facility] Comment on above: Order Comment: Speci men Type: BLOOD SPECIMENOrdering Facility: [facility] Address: [address] [place], [place] [address] Performed By: #### 5 7021-8 ####[facility] LABCLIA [id number] [place] [address] [place] Platelets (Bld) [#/Vol] 165 10*3/uL Normal 150-400 [facility] Comment on above: Order Comment: Speci men Type: BLOOD SPECIMENOrdering Facility: [facility] Address: [address] [place], [place] [address] Performed By: #### 5 7021-8 ####[facility] LABIA [id number] [place] [address] [place] RBC (Bld) [#/Vol] 5.47 10*6/uL Normal 4.20-6.00 [facility] Comment on above: Order Comment: Speci men Type: BLOOD SPECIMENOrdering Facility: [facility] Address: [address] [place] [address] Performed By: #### 5 7021-8 ####[facility] LABIA [id number] [place] [address] [place] WBC (Bld) [#/Vol] 8.39 10*3/uL Normal 3.70-11.00 [facility] Comment on above: Order Comment: Speci men Type: BLOOD SPECIMENOrdering Facility: [facility] Address: [address] [id number] Performed By: #### 5 7021-8 ####[facility] LABCLIA [id number] [place] [address] [place] ANES POSTPROC EVALon 023 ANES POSTPROC EVAL Normal [facility] ANES PRE-OPon 11-12-2022 ANES PRE-OP Normal [facility] CANCER GENOMICS (CARIS)???on 11-12-2022 CANCER GENOMICS (CARIS)???RESULT View results in Scanned Documents link when available. Normal [facility] Comment on above: Order Comment: Speci men Type: TISSUE SPECIMENOrdering Facility: [facility] Address: [address] [place] [address] Performed By: #### L [id number], S ####[facility] LABCLIA [id number] [address]#### CANGEN ####AP NON-INTERFACED SENDOUTS CYTOLOGY NON-GYNon 3 CASE REPORT Normal [facility] Comment on above: Order Comment: Speci men Type: WASHOrdering Facility: [facility] Address: [address] [place] [address] Result Comment: [facility] Cytology Report Case: [id number] Provider: Rita Bhatt MD Collected: 11/12/2022 02:54 PMOrdering Location: Admitting Received: 11/12/2022 03:13 PMPathologist: ROCIO Helmspecimens: A) - RENAL PELVIS RIGHT WASH B) - RENAL PELVIS RIGHT BRUSH, right renal pelvis brushing for cytology Performed By: #### C YTONON ####[facility] LABCLIA [id number] [place] [address] [place] CLINICAL HISTORY Malignant neoplasm o f ureter, unspecified laterality Normal [facility] Comment on above: Order Comment: Speci men Type: WASHOrdering Facility: [facility] Address: [address] [address] Performed By: #### C YTONON ####[facility] LABCLIA [id number] [address] FINAL DIAGNOSIS Normal [facility] Comment on above: Order Comment: Speci men Type: WASHOrdering Facility: [facility] Address: [address] [address] Result Comment: A - RENAL PELVIS RIGHT WASH High-grade urothelial carcinoma.B - RENAL PELVIS RIGHT BRUSH - right renal pelvis brushing for cytology High-grade urothelial carcinoma. Performed By: #### C YTONON ####[facility] LABCLIA [id number] [address] FINAL PERFORMING LAB Normal [facility] Comment on above: Order Comment: Speci men Type: WASHOrdering Facility: [facility] Address: [address] [address] Result Comment: Tech nical component, plate hanger screening performed at [facility], [facility] [address] CLIA# [id number] interpretation performed at [facility], [address] [place], [place] [address] CLIA# [id number] Director: Cedric Spring M.D. Performed By: #### C YTONON ####[facility] LABCLIA [id number] [address] OF [facility] GROSS DESCRIPTION Normal [facility] Comment on above: Order Comment: Speci men Type: WASHOrdering Facility: [facility] Address: [address] [address] Result Comment: A. R ENAL PELVIS RIGHT WASH25 cc opaque red fluid with particles. ThinPrep prepared.B. RENAL PELVIS RIGHT BRUSH10 cc hazy colorless fluid with brush. ThinPrep prepared. 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] Performed By: #### C YTONON ####[facility] LABCLIA [id number] [address] OF [place] HISTORY PHYSICALon HISTORY PHYSICAL Normal [facility] NURSING PROGon 11-12-2022 NURSING PROG Normal [facility] OPERATIVE NOon 11-12-2022 OPERATIVE NO Normal [facility] PD-L1 22C3on 11-12-2022 PD-L1 BY IMMUNOHISTOCHEMISTY Normal [facility] Comment on above: Order Comment: Speci men Type: TISSUE SPECIMENOrdering Facility: [facility] Address: [address] [place] [address] Result Comment: PD-L 1 Biomarker Report Urothelial Primary (22C3)Interpretation:Negative: CPS less than 10.Results:PD-L1 Combined Positive score (CPS): 5Case Number: [id number] Analyzed: BladderBlock Number: [id number] criteria: CPS is determined by the number of PD-L1 staining cells (tumor cells, lymphocytes, macrophages) divided by total number of tumor cells evaluated, multiplied by 100.Methods:Immunohistochemistry was performed on formalin fixed paraffin-embedded tissue using the mouse monoclonal antibody 22C3 ([employer]; [place], [place]) followed by ultrasensitive bright field detection (Optiview with amplification [[employer], [place]]).KEYTRUDA is indicated for the treatment of patients with locally advanced or metastatic urothelial carcinoma who are not eligible for cisplatin-containing therapy and whose tumors express PD-L1 [Combined Positive Score (CPS) > or = 10], or in patients who are not eligible for any [place]-containing chemotherapy regardless of PD-L1 status.Laboratory Developed Test (LDT) Disclaimer:Performance characteristics of immunohistochemical, immunofluorescent and chromogenic in-situ hybridization tests have been determined by the performing laboratory within [facility]???s Rita Leyva Pathology and Laboratory Medicine [place] ([facility], [facility], [facility], [facility], [facility], or [facility]) in a manner consistent with CLIA requirements. One or more of these tests have not been cleared or approved by the FDA. [facility] is regulated under CLIA as qualified to perform high-complexity testing. These tests are used for clinical purposes. They should not be regarded as investigational or for research. Positive and negative controls stain appropriately.The diagnostic interpretation was performed at [facility], [address] [place] [address] CLIA# [id number] signed out by: Billy Collado MD Performed By: #### L [id number], S ####[facility] LABCLIA [id number] [address] [place]#### CANGEN ####AP NON-INTERFACED SENDOUTS SURGICAL PATHOLOGYon 023 CASE REPORT Normal [facility] Comment on above: Order Comment: Speci men Type: TISSUE SPECIMENOrdering Facility: [facility] Address: [address] [place] [address] Result Comment: [facility] Pathology Report Case: [id number] Provider: Rita Bhatt MD Collected: 11/12/2022 02:52 PMOrdering Location: Admitting Received: 11/12/2022 04:08 PMPathologist: ROCIO Delucapecimens: A) - SOFT TISSUE, right renal pelvis biopsy #1 B) - SOFT TISSUE, right renal pelvis biopsy #2 C) - BLADDER TRANSURETHRAL RESECTION, bladder tumor biopsy Performed By: #### L [id number], S ####[facility] LABCLIA [id number] [place] [address] [place]#### CANGEN ####AP NON-INTERFACED SENDOUTS CLINICAL HISTORY Normal [facility] Comment on above: Order Comment: Speci men Type: TISSUE SPECIMENOrdering Facility: [facility] Address: [address] [address] Result Comment: Pre- op diagnosis:Malignant neoplasm of ureter, 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 R enal pelvis, right #1, biopsy:- Urothelial carcinoma, papillary noninvasive, high-grade.- No invasion identified (at least rejected items clerk).B. Renal pelvis, right #2, biopsy:- Urothelial carcinoma, papillary noninvasive, high-grade.- No invasion identified (at least rejected items clerk).C. Urinary bladder, tumor, biopsy:- Urothelial carcinoma, papillary noninvasive, high-grade.- No invasion identified (at least rejected items clerk).- Muscularis propria is not present for evaluation. Performed By: #### L [id number], S ####[facility] LABCLIA [id number] [place] [address] [place]#### CANGEN ####AP NON-INTERFACED SENDOUTS FINAL PERFORMING LAB Normal [facility] Comment on above: Order Comment: Speci men Type: TISSUE SPECIMENOrdering Facility: [facility] Address: [address] [address] Result Comment: Diag nostic interpretation performed at [facility], [address] [address] CLIA# [id number] Director: Cedric Spring M.D. Performed By: #### L [id number], S ####[facility] LABCLIA [id number] [address] OF [place]#### CANGEN ####AP NON-INTERFACED SENDOUTS GROSS DESCRIPTION A. SOFT TISSUE Normal [facility] Comment on above: Order Comment: Speci men Type: TISSUE SPECIMENOrdering Facility: [facility] Address: [address] [place] [address] Result Comment: Rece ived in formalin are [...] formalin in one cassette.Gross examination performed at [facility], [address] [place], [place] [address]ADT 11/12/2022 6:55 PM Performed By: #### L [id number], S ####[facility] LABCLIA [id number] [address] OF [place]#### CANGEN ####AP NON-INTERFACED SENDOUTS CBC AUTO DIFFon 11-09-2022 BASO # 0.1 103/ul Normal 0.0-0.1 [facility] Comment on above: Performed By: #### C K, HSTROPN, CMP, BNP #### [facility] [address] [address] [address] Tan Oliveros Basophils/100 WBC (Bld) 0.7 % Normal 0.2-2.[address] [facility] Comment on above: Performed By: #### C K, HSTROPN, CMP, BNP #### [facility] [address] [address] [address] Tan Oliveros EO # 0.2 103/ul Normal 0.0-0.[address] [facility] Comment on above: Performed By: #### C K, HSTROPN, CMP, BNP #### [facility] [address] [place] [address] Dr. Tan Oliveros Eosinophils/100 WBC (Bld) 2.6 % Normal 0.9-7.[address] [facility] Comment on above: Performed By: #### C K, HSTROPN, CMP, BNP #### [facility] [address] [place] [address] Dr. Tan Oliveros Erythrocyte distribution width (RBC) [Ratio] 17.2 % Critically high 11.0-15.[address] [facility] Comment on above: Performed By: #### C K, HSTROPN, CMP, BNP #### [facility] [address] [place] [address] Dr. Tan Oliveros Hematocrit (Bld) [Volume fraction] 43.8 % Normal 42.0-54.0 [facility] Comment on above: Performed By: #### C K, HSTROPN, CMP, BNP #### [facility] [address] [place] [address] Dr. Tan Oliveros Hemoglobin (Bld) [Mass/Vol] 14.4 g/dL Normal 14.0-18.[address] [facility] Comment on above: Performed By: #### C K, HSTROPN, CMP, BNP #### [facility] [address] [place] [address] Dr. Tan Oliveros IG # 0.01 10e3/ul Normal 0.00-0.[address] [facility] Comment on above: Performed By: #### C K, HSTROPN, CMP, BNP #### [facility] [address] [place] [address] Dr. Tan Oliveros IG % 0.1 % Normal 0.0-0.[address] [facility] Comment on above: Performed By: #### C K, HSTROPN, CMP, BNP #### [facility] [address] [place] [address] Dr. Tan Oliveros LYMPH # 1.3 103/ul Normal 1.2-3.[address] [facility] Comment on above: Performed By: #### C K, HSTROPN, CMP, BNP #### [facility] [address] [place] [address] Dr. Tan Oliveros Lymphocytes/100 WBC (Bld) 18.4 % Critically low 20.5-60.0 [facility] Comment on above: Performed By: #### C K, HSTROPN, CMP, BNP #### [facility] [address] [place] [address] Dr. Tan Oliveros MANUAL DIFF REQ NO Normal [facility] Comment on above: Performed By: #### C K, HSTROPN, CMP, BNP #### [facility] [address] [place] [address] Dr. Tan Oliveros MCH (RBC) [Entitic mass] 25.0 pg Critically low 25.9-34.0 [facility] Comment on above: Performed By: #### C K, HSTROPN, CMP, BNP #### [facility] [address] [place] [address] Dr. Tan Oliveros MCHC (RBC) [Mass/Vol] 32.9 g/dL Normal 29.9-35.[address] [facility] Comment on above: Performed By: #### C K, HSTROPN, CMP, BNP #### [facility] [address] [place] [address] Dr. Tan Oliveros MCV (RBC) [Entitic vol] 75.9 fL Critically low 80.0-94.0 [facility] Comment on above: Performed By: #### C K, HSTROPN, CMP, BNP #### [facility] [address] [place] [address] Dr. Tan Oliveros MONO # 0.5 103/ul Normal 0.3-0.[address] [facility] Comment on above: Performed By: #### C K, HSTROPN, CMP, BNP #### [facility] [address] [place] [address] Dr. Tan Oliveros Monocytes/100 WBC (Bld) 7.1 % Normal 1.7-12.[address] [facility] Comment on above: Performed By: #### C K, HSTROPN, CMP, BNP #### [facility] [address] [address] [address] Tan Oliveros NEUT # 5.1 103/ul Normal 1.4-6.[address] [facility] Comment on above: Performed By: #### C K, HSTROPN, CMP, BNP #### [facility] [address] [place] [address] Dr. Tan Oliveros Neutrophils/100 WBC (Bld) 71.1 % Normal 43.0-75.[address] [facility] Comment on above: Performed By: #### C K, HSTROPN, CMP, BNP #### [facility] [address] [place] [address] Dr. Tan Oliveros Platelet mean volume (Bld) [Entitic vol] 9.3 fL Critically low 9.5-13.[address] [facility] Comment on above: Performed By: #### C K, HSTROPN, CMP, BNP #### [facility] [address] [place] [address] Dr. Tan Oliveros PLT 209 103/ul Normal 150-[address] [facility] Comment on above: Performed By: #### C K, HSTROPN, CMP, BNP #### [facility] [address] [place] [address] Dr. Tan Oliveros RBC 5.77 106/ul Normal 4.70-6.[address] [facility] Comment on above: Performed By: #### C K, HSTROPN, CMP, BNP #### [facility] [address] [place] [address] Dr. Tan Oliveros WBC 7.2 103/ul Normal 4.0-11.[address] [facility] Comment on above: Performed By: #### C K, HSTROPN, CMP, BNP #### [facility] [address] [place] [address] Dr. Tan Oliveros CULTURE URINEon 11-09-2022 CULTURE URINE Culture Observations : NO GROWTH. Normal [facility] Comment on above: Performed By: #### C K, HSTROPN, CMP, BNP #### [facility] [address] [address] [address] Tan Oliveros ER URINE PROFILEon 3 Bilirubin Ql (U) Unable to perform testing due to color interference. Abnormal NEGATIVE [facility] Comment on above: Performed By: #### C K, HSTROPN, CMP, BNP #### [facility] [address] [address] [address] Tan Oliveros Clarity (U) CLEAR Normal CLEAR [facility] Comment on above: Performed By: #### C K, HSTROPN, CMP, BNP #### [facility] [address] [place] [address] Dr. Tan Oliveros Color (U) RED Abnormal YELLOW [facility] Comment on above: Performed By: #### C K, HSTROPN, CMP, BNP #### [facility] [address] [place] [address] Dr. Tan Oliveros ERUAHD A micrscopic examination will be performed if indicated. Normal [facility] Comment on above: Performed By: #### C K, HSTROPN, CMP, BNP #### [facility] [address] [place] [address] Dr. Tan Oliveros Glucose Ql (U) Unable to perform testing due to color interference. Abnormal NEGATIVE [facility] Comment on above: Performed By: #### C K, HSTROPN, CMP, BNP #### [facility] [address] [address] [address] Tan Oliveros Hemoglobin Ql (U) Unable to perform testing due to color interference. Abnormal NEGATIVE [facility] Comment on above: Performed By: #### C K, HSTROPN, CMP, BNP #### [facility] [address] [address] [address] Tan Oliveros Ketones Ql (U) Unable to perform testing due to color interference. Abnormal NEGATIVE [facility] Comment on above: Performed By: #### C K, HSTROPN, CMP, BNP #### [facility] [address] [place] [address] Dr. Tan Oliveros LEUKOCYTES Unable to perform testing due to color interference. Abnormal NEGATIVE [facility] Comment on above: Performed By: #### C K, HSTROPN, CMP, BNP #### [facility] [address] [address] [address] Tan Oliveros Nitrite Ql (U) Unable to perform testing due to color interference. Abnormal NEGATIVE [facility] Comment on above: Performed By: #### C K, HSTROPN, CMP, BNP #### [facility] [address] [address] [address] Tan Oliveros pH Unable to perform testing due to color interference. Abnormal 5-9 [facility] Comment on above: Performed By: #### C K, HSTROPN, CMP, BNP #### [facility] [address] [place] [address] Dr. Tan Oliveros SPEC GRAVITY <=1.005 Abnormal 1.005-<=1.02 5 [facility] Comment on above: Performed By: #### C K, HSTROPN, CMP, BNP #### [facility] [address] [place] [address] Dr. Tan Oliveros UA PROTEIN Unable to perform testing due to color interference. Normal NEGATIVE/ TRACE [facility] Comment on above: Performed By: #### C K, HSTROPN, CMP, BNP #### [facility] [address] [place] [address] Dr. Tan Oliveros UR MICRO IND INDICATED Normal [facility] Comment on above: Performed By: #### C K, HSTROPN, CMP, BNP #### [facility] [address] [place] [address] Dr. Tan Oliveros UROBILINOGEN Unable to perform testing due to color interference. Normal 0.2 - 1.0 [facility] Comment on above: Performed By: #### C K, HSTROPN, CMP, BNP #### [facility] [address] [place] [address] Dr. Tan Oliveros PROF 14(COMP METB)on 023 Albumin [Mass/Vol] 3.8 g/dL Normal 3.4-5.0 [facility] Comment on above: Performed By: #### C K, HSTROPN, CMP, BNP #### [facility] [address] [place] [address] Dr. Tan Oliveros Albumin/Globulin [Mass ratio] 1.3 {ratio} Normal [facility] Comment on above: Performed By: #### C K, HSTROPN, CMP, BNP #### [facility] [address] [place] [address] Dr. Tan Oliveros ALP [Catalytic activity/Vol] 81 U/L Normal 46-116 [facility] Comment on above: Performed By: #### C K, HSTROPN, CMP, BNP #### [facility] [address] [place] [address] Dr. Tan Oliveros ALT [Catalytic activity/Vol] 20 U/L Normal 16-63 [facility] Comment on above: Performed By: #### C K, HSTROPN, CMP, BNP #### [facility] [address] [place] [address] Dr. Tan Oliveros Anion gap [Moles/Vol] 14.3 mmol/L Normal [facility] Comment on above: Performed By: #### C K, HSTROPN, CMP, BNP #### [facility] [address] [place] [address] Dr. Tan Oliveros AST [Catalytic activity/Vol] 26 U/L Normal 15-37 [facility] Comment on above: Performed By: #### C K, HSTROPN, CMP, BNP #### [facility] [address] [place] [address] Dr. Tan Oliveros Bilirubin [Mass/Vol] 0.7 mg/dL Normal 0.2-1.0 [facility] Comment on above: Performed By: #### C K, HSTROPN, CMP, BNP #### [facility] [address] [place] [address] Dr. Tan Oliveros Calcium [Mass/Vol] 8.9 mg/dL Normal 8.5-10.1 [facility] Comment on above: Performed By: #### C K, HSTROPN, CMP, BNP #### [facility] [address] [place] [address] Dr. Tan Oliveros Chloride [Moles/Vol] 101 mmol/L Normal 98-107 [facility] Comment on above: Performed By: #### C K, HSTROPN, CMP, BNP #### [facility] [address] [place] [address] Dr. Tan Oliveros CO2 [Moles/Vol] 27.9 mmol/L Normal 21.0-32.0 [facility] Comment on above: Performed By: #### C K, HSTROPN, CMP, BNP #### [facility] [address] [place] [address] Dr. Tan Oliveros Creatinine [Mass/Vol] 1.85 mg/dL Critically high 0.70-1.30 [facility] Comment on above: Performed By: #### C K, HSTROPN, CMP, BNP #### [facility] [address] [place] [address] Dr. Tan Oliveros EGFR-AF INDONESIAN 43 mL/min/1.73m2 Critically low >=60 [facility] Comment on above: Performed By: #### C K, HSTROPN, CMP, BNP #### [facility] [address] [place] [address] Dr. Tan Oliveros EGFR-NON AF INDONESIAN 35 mL/min/1.73m2 Critically low >=60 [facility] Comment on above: Performed By: #### C K, HSTROPN, CMP, BNP #### [facility] [address] [place] [address] Dr. Tan Oliveros Globulin (S) [Mass/Vol] 3.0 g/dL Normal [facility] Comment on above: Performed By: #### C K, HSTROPN, CMP, BNP #### [facility] [address] [place] [address] Dr. Tan Oliveros Glucose [Mass/Vol] 114 mg/dL Critically high 74-106 [facility] Comment on above: Performed By: #### C K, HSTROPN, CMP, BNP #### [facility] [address] [address] [address] Tan Oliveros Potassium [Moles/Vol] 4.2 mmol/L Normal 3.5-5.[address] [facility] Comment on above: Performed By: #### C K, HSTROPN, CMP, BNP #### [facility] [address] [address] [address] Tan Oliveros Protein [Mass/Vol] 6.8 g/dL Normal 6.4-8.2 [facility] Comment on above: Performed By: #### C K, HSTROPN, CMP, BNP #### [facility] [address] [address] [address] Tan Oliveros Sodium [Moles/Vol] 139 mmol/L Normal 136-145 [facility] Comment on above: Performed By: #### C K, HSTROPN, CMP, BNP #### [facility] [address] [place] [address] Dr. Tan Oliveros Urea nitrogen [Mass/Vol] 27.0 mg/dL Critically high 7.0-18.0 [facility] Comment on above: Performed By: #### C K, HSTROPN, CMP, BNP #### [facility] [address] [place] [address] Dr. Tan Oliveros Urea nitrogen/Creatinine [Mass ratio] 14.6 mg/mg Normal [facility] Comment on above: Performed By: #### C K, HSTROPN, CMP, BNP #### [facility] [address] [place] [address] Dr. Tan Oliveros PROTIMEon 11-09-2022 INR Coag (PPP) [Relative time] 0.99 {INR} Normal [facility] Comment on above: Performed By: #### C K, HSTROPN, CMP, BNP #### [facility] [address] [place] [address] Dr. Tan Oliveros INR GUIDELINES SEE BELOW Normal [facility] Comment on above: Result Comment: TYRELL RED INR: 2.0 - 3.0 CONDITIONS NOT LISTED BELOW 2.5 - 3.5 FOR PROSTHETIC HEART VALVE REPLACEMENT 2.5 - 3.5 RECURRENT THROMBOSIS Performed By: #### C K, HSTROPN, CMP, BNP #### [facility] [address] [place] [address] Dr. Tan Oliveros PT Coag (PPP) [Time] 10.5 s Normal 9.0-11.[address] [facility] Comment on above: Performed By: #### C K, HSTROPN, CMP, BNP #### [facility] [address] [place] [address] Dr. Tan Oliveros PTTon 11-09-2022 aPTT Coag (Bld) [Time] 28.4 s Normal 22.3-36.2 [facility] Comment on above: Performed By: #### C K, HSTROPN, CMP, BNP #### [facility] [address] [place] [address] Dr. Tan Oliveros URINE MICROSCOPIC ONLYon BACTERIA TRACE Abnormal NONE SEEN [facility] Comment on above: Performed By: #### C K, HSTROPN, CMP, BNP #### [facility] [address] [place] [address] Dr. Tan Oliveros Bacteria identified Cx Nom (U) CX ALREADY ORDERED Normal [facility] Comment on above: Performed By: #### C K, HSTROPN, CMP, BNP #### [facility] [address] [place] [address] Dr. Tan Oliveros CAST NONE SEEN Normal NONE SEEN [facility] Comment on above: Performed By: #### C K, HSTROPN, CMP, BNP #### [facility] [address] [place] [address] Dr. Tan Oliveros Crystals LM Nom (Urine sed) NONE SEEN Normal NONE SEEN [facility] Comment on above: Performed By: #### C K, HSTROPN, CMP, BNP #### [facility] [address] [place] [address] Dr. Tan Oliveros Epithelial cells LM Ql (Urine sed) NONE SEEN Normal NONE SEEN /RARE [facility] Comment on above: Performed By: #### C K, HSTROPN, CMP, BNP #### [facility] [address] [address] [address] Tan Oliveros MUCOUS NONE SEEN Normal NONE SEEN [facility] Comment on above: Performed By: #### C K, HSTROPN, CMP, BNP #### [facility] [address] [address] [address] Tan Oliveros RBC (U) [#/Vol] /uL Abnormal 0-2 [facility] Comment on above: Performed By: #### C K, HSTROPN, CMP, BNP #### [facility] [address] [address] [address] Tan Oliveros WBC 0-2 Abnormal NONE SEEN [facility] Comment on above: Performed By: #### C K, HSTROPN, CMP, BNP #### [facility] [address] [place] [address] Dr. Tan Oliveros INSULINon 09-27-2022 Insulin 13.4 uIU/mL Normal 2.6-24.[address] [facility] Comment on above: Performed By: #### C K, HSTROPN, CMP, BNP #### [facility] [address] [place] [address] Dr. Tan Oliveros BNPon 09-26-2022 Natriuretic peptide B (Bld) [Mass/Vol] 715.0 pg/mL Normal <=1,800.[address] [facility] Comment on above: Performed By: #### C K, HSTROPN, CMP, BNP #### [facility] [address] [place] [address] Dr. Tan Oliveros CBC AUTO DIFFon 09-26-2022 BASO # 0.0 103/ul Normal 0.0-0.[address] [facility] Comment on above: Performed By: #### C K, HSTROPN, CMP, BNP #### [facility] [address] [place] [address] Dr. Tan Oliveros Basophils/100 WBC (Bld) 0.7 % Normal 0.2-2.[address] [facility] Comment on above: Performed By: #### C K, HSTROPN, CMP, BNP #### [facility] [address] [place] [address] Dr. Tan Oliveros EO # 0.1 103/ul Normal 0.0-0.[address] [facility] Comment on above: Performed By: #### C K, HSTROPN, CMP, BNP #### [facility] [address] [place] [address] Dr. Tan Oliveros Eosinophils/100 WBC (Bld) 2.1 % Normal 0.9-7.[address] [facility] Comment on above: Performed By: #### C K, HSTROPN, CMP, BNP #### [facility] [address] [place] [address] Dr. Tan Oliveros Erythrocyte distribution width (RBC) [Ratio] 15.9 % Critically high 11.0-15.0 [facility] Comment on above: Performed By: #### C K, HSTROPN, CMP, BNP #### [facility] [address] [place] [address] Dr. Tan Oliveros Hematocrit (Bld) [Volume fraction] 45.1 % Normal 42.0-54.0 [facility] Comment on above: Performed By: #### C K, HSTROPN, CMP, BNP #### [facility] [address] [place] [address] Dr. Tan Oliveros Hemoglobin (Bld) [Mass/Vol] 14.1 g/dL Normal 14.0-18.[address] [facility] Comment on above: Performed By: #### C K, HSTROPN, CMP, BNP #### [facility] [address] [place] [address] Dr. Tan Oliveros IG # 0.02 10e3/ul Normal 0.00-0.[address] [facility] Comment on above: Performed By: #### C K, HSTROPN, CMP, BNP #### [facility] [address] [place] [address] Dr. Tan Oliveros IG % 0.3 % Normal 0.0-0.[address] [facility] Comment on above: Performed By: #### C K, HSTROPN, CMP, BNP #### [facility] [address] [address] [address] Tan Oliveros LYMPH # 0.7 103/ul Critically low 1.2-3.8 [facility] Comment on above: Performed By: #### C K, HSTROPN, CMP, BNP #### [facility] [address] [place] [address] Dr. Tan Oliveros Lymphocytes/100 WBC (Bld) 12.4 % Critically low 20.5-60.0 [facility] Comment on above: Performed By: #### C K, HSTROPN, CMP, BNP #### [facility] [address] [address] [address] Tan Oliveros MANUAL DIFF REQ NO Normal [facility] Comment on above: Performed By: #### C K, HSTROPN, CMP, BNP #### [facility] [address] [place] [address] Dr. Tan Oliveros MCH (RBC) [Entitic mass] 23.7 pg Critically low 25.9-34.0 [facility] Comment on above: Performed By: #### C K, HSTROPN, CMP, BNP #### [facility] [address] [place] [address] Dr. Tan Oliveros MCHC (RBC) [Mass/Vol] 31.3 g/dL Normal 29.9-35.2 [facility] Comment on above: Performed By: #### C K, HSTROPN, CMP, BNP #### [facility] [address] [place] [address] Dr. Tan Oliveros MCV (RBC) [Entitic vol] 75.7 fL Critically low 80.0-94.0 [facility] Comment on above: Performed By: #### C K, HSTROPN, CMP, BNP #### [facility] [address] [place] [address] Dr. Tan Oliveros MONO # 0.4 103/ul Normal 0.3-0.8 [facility] Comment on above: Performed By: #### C K, HSTROPN, CMP, BNP #### [facility] [address] [place] [address] Dr. Tan Oliveros Monocytes/100 WBC (Bld) 6.8 % Normal 1.7-12.[address] [facility] Comment on above: Performed By: #### C K, HSTROPN, CMP, BNP #### [facility] [address] [place] [address] Dr. Tan Oliveros NEUT # 4.5 103/ul Normal 1.4-6.[address] [facility] Comment on above: Performed By: #### C K, HSTROPN, CMP, BNP #### [facility] [address] [place] [address] Dr. Tan Oliveros Neutrophils/100 WBC (Bld) 77.7 % Critically high 43.0-75.[address] [facility] Comment on above: Performed By: #### C K, HSTROPN, CMP, BNP #### [facility] [address] [place] [address] Dr. Tan Oliveros Platelet mean volume (Bld) [Entitic vol] 9.3 fL Critically low 9.5-13.[address] [facility] Comment on above: Performed By: #### C K, HSTROPN, CMP, BNP #### [facility] [address] [place] [address] Dr. Tan Oliveros PLT 205 103/ul Normal 150-[address] [facility] Comment on above: Performed By: #### C K, HSTROPN, CMP, BNP #### [facility] [address] [place] [address] Dr. Tan Oliveros RBC 5.96 106/ul Normal 4.70-6.[address] [facility] Comment on above: Performed By: #### C K, HSTROPN, CMP, BNP #### [facility] [address] [place] [address] Dr. Tan Oliveros WBC 5.7 103/ul Normal 4.0-11.[address] [facility] Comment on above: Performed By: #### C K, HSTROPN, CMP, BNP #### [facility] [address] [place] [address] Dr. Tan Oliveros FREE THYROXINE INDEX T7on FTI 2.34 Normal 1.30-4.50 [facility] Comment on above: Performed By: #### Emir Wagner, ARMANDOTRYADIEL CMP, BNP #### [facility] [address] [place] [address] Dr. Tan Oliveros T3U 36.0 % Normal 33.0-40.0 [facility] Comment on above: Performed By: #### Emir Wagner, ARMANDOTRYADIEL CMP, BNP #### [facility] [address] [address] [address] Tan Oliveros T4 [Mass/Vol] 6.50 ug/dL Normal 4.50-12.10 [facility] Comment on above: Performed By: #### Emir Wagner, NEEL CMP, BNP #### [facility] [address] [place] [address] Dr. Tan Oliveros GLYCOHEMOGLOBIN A1Con 2021 ADA RECOMMENDATION SEE BELOW Normal [facility] Comment on above: Result Comment: ADA RECOMMENDED LIMIT 4.0 - 6.0 ADA THERAPEUTIC TARGET < 7.0 ACTION SUGGESTED > 7.0 Performed By: #### Emir Wagner, ARMANDOTRYADIEL CMP, BNP #### [facility] [address] [address] [address] Tan Oliveros Glucose [Mass/Vol] 114 mg/dL Normal [facility] Comment on above: Performed By: #### Emir Wagner, ARMANDOTRYADIEL CMP, BNP #### [facility] [address] [place] [address] [address] Tan Oliveros HbA1c (Bld) [Mass fraction] 5.6 % Normal 4.5-6.[address] [facility] Comment on above: Performed By: #### Emir Wagner, HSTROPElke, CMP, BNP #### [facility] [address] [place] [address] Dr. Tan Oliveros IRONon 09-26-2022 Iron [Mass/Vol] 40.0 ug/dL Critically low 65.0-175.0 [facility] Comment on above: Performed By: #### I MARY BHARDWAJ, FREDA #### [facility] [address] [address] [address] Tan Oliveros LIPID PROFILEon 09-26-2022 CHOL-HDL RATIO NORM SEE BELOW Normal [facility] Comment on above: Result Comment: 3.3 - 4.4 LOW RISK 4.4 - 7.1 AVERAGE RISK 7.1 - 11.0 MODERATE RISK >11.0 HIGH RISK Performed By: #### B SURGEON CHIEF, T7, CMP, TSH, LIPID #### [facility] [address] [address] [address] Tan Oliveros Cholesterol [Mass/Vol] 159 mg/dL Normal <=200 [facility] Comment on above: Performed By: #### B SURGEON CHIEF, T7, CMP, TSH, LIPID #### [facility] [address] [address] [address] Tan Oliveros Cholesterol in HDL [Mass/Vol] 66 mg/dL Critically high 40-60 [facility] Comment on above: Performed By: #### B SURGEON CHIEF, T7, CMP, TSH, LIPID #### [facility] [address] [address] [address] Tan Oliveros Cholesterol in LDL [Mass/Vol] 82.4 mg/dL Normal [facility] Comment on above: Performed By: #### B SURGEON CHIEF, T7, CMP, TSH, LIPID #### [facility] [address] [address] [address] Tan Oliveros Cholesterol.total/Chol esterol in HDL [Mass ratio] 2.4 {ratio} Normal [facility] Comment on above: Performed By: #### B SURGEON CHIEF, T7, CMP, TSH, LIPID #### [facility] [address] [address] [address] Tan Oliveros HDL NORMAL > or = 60 mg/dl - LO W CARDIOVASCULAR RISK <40 mg/dl - HIGH CARDIOVASCULAR RISK Normal [facility] Comment on above: Performed By: #### B SURGEON CHIEF, T7, CMP, TSH, LIPID #### [facility] [address] [address] [address] Tan Oliveros LDL CALC NORMAL SEE BELOW Normal [facility] Comment on above: Result Comment: <100 mg/dl OPTIMAL 100 - 129 mg/dl NEAR OR ABOVE OPTIMAL 130 - 159 mg/dl BORDERLINE HIGH 160 - 189 mg/dl HIGH >190 mg/dl VERY HIGH Performed By: #### B SURGEON CHIEF, T7, CMP, TSH, LIPID #### [facility] [address] [address] [address] Tan Oliveros Triglyceride [Mass/Vol] 53 mg/dL Normal <=150 [facility] Comment on above: Performed By: #### B SURGEON CHIEF, T7, CMP, TSH, LIPID #### [facility] [address] [address] [address] Tan Oliveros VLDL CALC 10.6 mg/dL Normal [facility] Comment on above: Performed By: #### B SURGEON CHIEF, T7, CMP, TSH, LIPID #### [facility] [address] [address] [address] Tan Oliveros PROF 14(COMP METB)on 022 Albumin [Mass/Vol] 3.9 g/dL Normal 3.4-5.0 [facility] Comment on above: Performed By: #### C K, HSTROPN, CMP, BNP #### [facility] [address] [address] [address] Tan Oliveros Albumin/Globulin [Mass ratio] 1.2 {ratio} Normal [facility] Comment on above: Performed By: #### C K, HSTROPN, CMP, BNP #### [facility] [address] [address] [address] Tan Oliveros ALP [Catalytic activity/Vol] 94 U/L Normal 46-116 [facility] Comment on above: Performed By: #### C K, HSTROPN, CMP, BNP #### [facility] [address] [address] [address] Tan Oliveros ALT [Catalytic activity/Vol] 17 U/L Normal 16-63 [facility] Comment on above: Performed By: #### C K, HSTROPN, CMP, BNP #### [facility] [address] [address] [address] Tan Oliveros Anion gap [Moles/Vol] 12.9 mmol/L Normal Th e [facility] Comment on above: Performed By: #### C K, HSTROPN, CMP, BNP #### [facility] [address] [address] [address] Tan Oliveros AST [Catalytic activity/Vol] 20 U/L Normal 15-37 [facility] Comment on above: Performed By: #### C K, HSTROPN, CMP, BNP #### [facility] [address] [address] [address] Tan Oliveros Bilirubin [Mass/Vol] 0.4 mg/dL Normal 0.2-1.0 [facility] Comment on above: Performed By: #### C K, HSTROPN, CMP, BNP #### [facility] [address] [place] [address] Dr. Tan Oliveros Calcium [Mass/Vol] 9.1 mg/dL Normal 8.5-10.1 [facility] Comment on above: Performed By: #### C K, HSTROPN, CMP, BNP #### [facility] [address] [address] [address] Tan Oliveros Chloride [Moles/Vol] 106 mmol/L Normal 98-[address] [facility] Comment on above: Performed By: #### C K, HSTROPN, CMP, BNP #### [facility] [address] [place] [address] Dr. Tan Oliveros CO2 [Moles/Vol] 29.1 mmol/L Normal 21.0-32.0 [facility] Comment on above: Performed By: #### C K, HSTROPN, CMP, BNP #### [facility] [address] [place] [address] Dr. Tan Oliveros Creatinine [Mass/Vol] 1.98 mg/dL Critically high 0.70-1.30 [facility] Comment on above: Performed By: #### C K, HSTROPN, CMP, BNP #### [facility] [address] [address] [address] Tan Oliveros EGFR-AF INDONESIAN 39 mL/min/1.73m2 Critically low >=60 [facility] Comment on above: Performed By: #### C K, HSTROPN, CMP, BNP #### [facility] [address] [place] [address] Dr. Tan Oliveros EGFR-NON AF INDONESIAN 32 mL/min/1.73m2 Critically low >=60 [facility] Comment on above: Performed By: #### C K, HSTROPN, CMP, BNP #### [facility] [address] [place] [address] Dr. Tan Oliveros Globulin (S) [Mass/Vol] 3.3 g/dL Normal [facility] Comment on above: Performed By: #### C K, HSTROPN, CMP, BNP #### [facility] [address] [place] [address] Dr. Tan Oliveros Glucose [Mass/Vol] 108 mg/dL Critically high 74-106 [facility] Comment on above: Performed By: #### C K, HSTROPN, CMP, BNP #### [facility] [address] [place] [address] Dr. Tan Oliveros Potassium [Moles/Vol] 4.0 mmol/L Normal 3.5-5.1 [facility] Comment on above: Performed By: #### C K, HSTROPN, CMP, BNP #### [facility] [address] [place] [address] Dr. Tan Oliveros Protein [Mass/Vol] 7.2 g/dL Normal 6.4-8.2 [facility] Comment on above: Performed By: #### C K, HSTROPN, CMP, BNP #### [facility] [address] [place] [address] Dr. Tan Oliveros Sodium [Moles/Vol] 144 mmol/L Normal 136-145 [facility] Comment on above: Performed By: #### C K, HSTROPN, CMP, BNP #### [facility] [address] [place] [address] Dr. Tan Oliveros Urea nitrogen [Mass/Vol] 43.0 mg/dL Critically high 7.0-18.0 [facility] Comment on above: Performed By: #### C K, HSTROPN, CMP, BNP #### [facility] [address] [address] [address] Tan Oliveros Urea nitrogen/Creatinine [Mass ratio] 21.7 mg/mg Normal [facility] Comment on above: Performed By: #### C K, HSTROPN, CMP, BNP #### [facility] [address] [address] [address] Tan Oliveros TSHon 09-26-2022 TSH 2.331 uIU/mL Normal 0.358-3.740 [facility] Comment on above: Performed By: #### C K, HSTROPN, CMP, BNP #### [facility] [address] [address] [address] Tan Oliveros VITAMIN D 25 OHon 09-26-2022 VIT D 25-OH 40.9 ng/mL Normal [facility] Comment on above: Performed By: #### I MARY BHARDWAJ, VITAD #### [facility] [address] [address] [address] Tan Oliveros VIT D RANGES SEE BELOW Normal [facility] Comment on above: Result Comment: <20 ng/mL Vit D deficient 20 - <30 ng/mL Vit D insufficient 30 - 100 ng/mL Vit D sufficient >100 ng/mL Potential Toxicity Performed By: #### I LASHAE PSASC, VITAD #### [facility] [address] [address] [address] Tan Oliveros 36on 09-14-2022 36 Approving, but needs appt for additional refills. Normal [facility] URINALYSIS, REFLEX MICROSCOP ICon 09-12-2022 Bilirubin Ql (U) Negative Negative [facility] Clarity (Unsp spec) Cloudy Abnormal Clear [facility] Color (U) Light Alcorn Abnormal Yellow [facility] Glucose Test strip (U) [Mass/Vol] 4+ Abnormal Negative [facility] Hemoglobin Ql (U) 3+ Abnormal Negative [facility] Hyaline casts (Urine sed) [#/Area] 1-3 /LPF Abnormal 0 /LPF [facility] Ketones Ql (U) Negative Negative [facility] Leukocyte esterase Test strip Ql (U) Negative Negative [facility] Nitrite Ql (U) Negative Negative [facility] pH (U) 5.5 [pH] 5.0 - 8.0 [facility] Protein (U) [Mass/Vol] 1+ Abnormal Negative Cl [facility] RBC LM.HPF (Urine sed) [#/Area] /[HPF] Abnormal 0-3 /HPF [facility] Specific gravity (U) [Rel density] 1.019 1.005 - 1.030 [facility] Urobilinogen Ql (U) Negative Negative [facility] WBC LM.HPF (Urine sed) [#/Area] 0-5 /HPF 0-5 /HPF [facility] URINE CULTUREon 03-17-2022 Bacteria identified Cx Nom (U) No growth (<1,000 CFU/ml) [facility] TYPE AND SCREEN,30 DAYon ABO O [facility] HIstorical Ab Scr Status Negative [facility] Rh Nom (Bld) Positive [facility] CT UROGRAM WO/W IVCONon 09-2 [facility] Dipstick and Microscopicon 0 02-23-2019 Appearance Nom (U) Cloudy Critically abnormal Clear [facility] Comment on above: Order Comment: Name Collection Type:: Clean-Voided Midstream Performed By: #### A DDSEDAUAPLUS, CUU #### [facility] [address] [place] [address] [place] Bacteria LM.HPF #/area (Urine sed) None Seen Normal None Seen [facility] Comment on above: Order Comment: Name Collection Type:: Clean-Voided Midstream Performed By: #### A DDONUAPLUS, CUU #### [facility] [address] [place] [address] [place] Bilirubin,Urine Negative Normal Negative [facility] Comment on above: Order Comment: Name Collection Type:: Clean-Voided Midstream Performed By: #### A DDONUAPLUS, CUU #### [facility] [address] [id number] [place] Color Nom (U) Yellow Normal Yellow [facility] Comment on above: Order Comment: Name Collection Type:: Clean-Voided Midstream Performed By: #### A DDONUAPLUS, CUU #### [facility] [address] [place] [address] Glucose Ql (U) Normal Normal Normal [facility] Comment on above: Order Comment: Name Collection Type:: Clean-Voided Midstream Performed By: #### A DDONUAPLUS, CUU #### [facility] [address] [place] [address] [place] Hyaline Casts,Urine 0-8 Normal 0-8 [facility] Comment on above: Order Comment: Name Collection Type:: Clean-Voided Midstream Result Comment: PERF ORMED BY: [place] [address] PATHOLOGIST INSPECTOR FINAL ASSEMBLY [employer] LINE LEONARD MCCLAIN M.D. Performed By: #### A DDONUAPLUS, CUU #### [facility] [address] [place] [address] Ketones Ql (U) Negative Normal Negative [facility] Comment on above: Order Comment: Name Collection Type:: Clean-Voided Midstream Performed By: #### A DDONUAPLUS, CUU #### [address] Leukocyte esterase Test strip Ql (U) 4+ High Negative [facility] Comment on above: Order Comment: Name Collection Type:: Clean-Voided Midstream Performed By: #### A DDONUAPLUS, CUU #### [facility] [address] [place] [address] [place] Nitrite,Urine Negative Normal Negative [facility] Comment on above: Order Comment: Name Collection Type:: Clean-Voided Midstream Performed By: #### A DDONUAPLUS, CUU #### [facility] [address] [place] [address] [place] Occult Blood,Urine 3+ High Negative [facility] Comment on above: Order Comment: Name Collection Type:: Clean-Voided Midstream Result Comment: PERF ORMED BY: [place] [address] PATHOLOGIST INSPECTOR FINAL ASSEMBLY [employer] LINE LEONARD MCCLAIN M.D. Performed By: #### A DDONUAPLUS, CUU #### [facility] [address] [place] [address] pH (U) 7.0 [pH] Normal 5.0-9.0 [facility] Comment on above: Order Comment: Name Collection Type:: Clean-Voided Midstream Performed By: #### A DDONUAPLUS, CUU #### [address] Protein mass conc (U) 30 mg/dL High Negative [facility] Comment on above: Order Comment: Name Collection Type:: Clean-Voided Midstream Performed By: #### A DDONUAPLUS, CUU #### [address] RBC LM.HPF #/area (Urine sed) [facility] [address] Comment on above: Order Comment: Name Collection Type:: Clean-Voided Midstream Performed By: #### A DDONUAPLUS, CUU #### [address] Specificy [place],Urine 1.013 Normal 1.001-1.030 [facility] Comment on above: Order Comment: Name Collection Type:: Clean-Voided Midstream Performed By: #### A DDONUAPLUS, CUU #### [address] Squamous Epithelial Cell,Urine None Seen Normal 0-2 [facility] Comment on above: Order Comment: Name Collection Type:: Clean-Voided Midstream Performed By: #### A DDONUAPLUS, CUU #### [address] Urobilinogen,Urine Normal Normal Normal [facility] Comment on above: Order Comment: Name Collection Type:: Clean-Voided Midstream Performed By: #### A DDONUAPLUS, CUU #### [place] [address] [place] WBC LM.HPF #/area (Urine sed) Innumerable High 0-4 [facility] Comment on above: Order Comment: Name Collection Type:: Clean-Voided Midstream Performed By: #### A DDSEDAUAHANG, [facility] #### [address] [place] [id number] [facility] 02-23-2019 L - -------- Specimen: [id number] Received: 02/23/19 Status: MALCOLM Mendez Num: [id number] Spec Type: Cytology Subm Dr: Jian Rodriguez MD Tissues: A CYTOSLIDE (URINE) Procedures: Pap Stain/2 -------- Patient Age/Sex Location Account Attending Physician -------- Juan Jose Austin Sr 78/M [place] [id number] Jian Rodriguez MD -------- SPEC NUM: [id number] RECD: 02/23/19 STATUS: MALCOLM MENDEZ NUM: [id number] ALEKSANDR: 02/23/[address] [facility] [address]: Jian Rodriguez MD ENTERED: 02/23/[address] [facility] [address]: SPEC TYPE: Cytology DEPT: [facility] ORDERED: Pap Stain/2 ORDERED: Pap Stain/2 Pathological [...] examined. Microscopic examination supports the pathologic diagnosis. [id number] -------- -------- Specimen: [id number] Received: 02/23/19 Status: MALCOLM Mendez Num: [id number] Spec Type: Cytology [facility] Dr: Jian Rodriguez MD Tissues: A CYTOSLIDE (URINE) Procedures: Pap Stain/2 -------- Patient: Juan Jose Austin [id number] (Continued) -------- Signed (signature on file) Julio Cesar Carr MD 02/24/19 1700 [facility] Urine Cultureon 02-23-2019 Bacteria identified Cx Nom (U) ORGANISM: Pseudomonas aeruginosa (O:PSEAER) [place] Count >100,000 100,000 CFU/ML OTHER MIXED BACTERIAL [...] RESISTANT TO ALL B-LACTAM DRUGS. PERFORMED BY: [facility] [place] [address] PATHOLOGIST INSPECTOR FINAL ASSEMBLY [employer]VEY[employer] LINE LEONARD MCCLAIN M.D. [facility] Comment on above: Performed By: #### A JAMAR MALDONADO #### [facility] [address] [id number] [facility] Vital Signs Date Time Vital Sign Value Performing Clinician Facility 09-19-2023 14:50-0500 Diastolic blood pressure 62 mm[Hg] Chair [place] Work Phone: [facility] 09-19-2023 14:50-0500 Systolic blood pressure 114 mm[Hg] Chair [place] Work Phone: [facility] 08-29-2023 12:37-0500 Body height 162.6 cm Caesar Prado MD Work Phone: [facility] 08-29-2023 12:37-0500 Body temperature 97.5 [degF] Caesar Prado MD Work Phone: [facility] 08-29-2023 12:37-0500 Body weight 75.75 kg Caesar Prado MD Work Phone: [facility] 08-29-2023 12:37-0500 Diastolic blood pressure 58 mm[Hg] Caesar Prado MD Work Phone: [facility] 08-29-2023 12:37-0500 Heart rate 60 /min Caesar Prado MD Work Phone: [facility] 08-29-2023 12:37-0500 Respiratory rate 18 /min Caesar Prado MD Work Phone: [facility] 08-29-2023 12:37-0500 SaO2% (BldA) [Mass fraction] 97 % Caesar Prado MD Work Phone: [facility] 08-29-2023 12:37-0500 Systolic blood pressure 124 mm[Hg] Caesar Prado MD Work Phone: [facility] 07-18-2023 13:14-0400 Body height 162.6 cm Caesar Prado MD Work Phone: [facility] 07-18-2023 13:14-0400 Body temperature 97.59 [degF] Caesar Prado MD Work Phone: [facility] 07-18-2023 13:14-0400 Body weight 80.74 kg Caesar Prado MD Work Phone: [facility] 07-18-2023 13:14-0400 Diastolic blood pressure 52 mm[Hg] Caesar Prado MD Work Phone: [facility] 07-18-2023 13:14-0400 Heart rate 61 /min Caesar Prado MD Work Phone: [facility] 07-18-2023 13:14-0400 Respiratory rate 18 /min Caesar Prado MD Work Phone: [facility] 07-18-2023 13:14-0400 SaO2% (BldA) [Mass fraction] 96 % Caesar Prado MD Work Phone: [facility] 07-18-2023 13:14-0400 Systolic blood pressure 129 mm[Hg] Caesar Prado MD Work Phone: [facility] 06-27-2023 13:02-0400 Body height 162.6 cm Wayne Chavez APRN.COMPLIANCE PROJECT MANAGER Work Phone: [facility] 06-27-2023 13:02-0400 Body temperature 97 [degF] Wayne Chavez APRN.COMPLIANCE PROJECT MANAGER Work Phone: [facility] 06-27-2023 13:02-0400 Body weight 81.19 kg Wayne Chavez APRN.COMPLIANCE PROJECT MANAGER Work Phone: [facility] 06-27-2023 13:02-0400 Diastolic blood pressure 56 mm[Hg] Wayne Chavez APRN.COMPLIANCE PROJECT MANAGER Work Phone: [facility] 06-27-2023 13:02-0400 Heart rate 61 /min Wayne Wero [employer] MAKER.COMPLIANCE PROJECT MANAGER Work Phone: [facility] 06-27-2023 13:02-0400 Respiratory rate 16 /min Wanye Chavez [employer] MAKER.COMPLIANCE PROJECT MANAGER Work Phone: [facility] 06-27-2023 13:02-0400 SaO2% (BldA) [Mass fraction] 99 % Wayne Chavez [employer] MAKER.COMPLIANCE PROJECT MANAGER Work Phone: [facility] 06-27-2023 13:02-0400 Systolic blood pressure 122 mm[Hg] Wayne Chavez [employer] MAKER.COMPLIANCE PROJECT MANAGER Work Phone: [facility] 06-06-2023 13:31-0400 Body height 162.6 cm Caesar Prado MD Work Phone: [facility] 06-06-2023 13:31-0400 Body temperature 97.81 [degF] Caesar Prado MD Work Phone: [facility] 06-06-2023 13:31-0400 Body weight 80.47 kg Caesar Prado MD Work Phone: [facility] 06-06-2023 13:31-0400 Diastolic blood pressure 63 mm[Hg] Caesar Prado MD Work Phone: [facility] 06-06-2023 13:31-0400 Heart rate 60 /min Caesar Prado MD Work Phone: [facility] 06-06-2023 13:31-0400 Respiratory rate 16 /min Caesar Prado MD Work Phone: [facility] 06-06-2023 13:31-0400 SaO2% (BldA) [Mass fraction] 99 % Caesar Prado MD Work Phone: [facility] 06-06-2023 13:31-0400 Systolic blood pressure 131 mm[Hg] Caesar Prado MD Work Phone: [facility] 05-16-2023 13:02-0400 Body height 162.6 cm Caesar Prado MD Work Phone: [facility] 05-16-2023 13:02-0400 Body temperature 97.81 [degF] Caesar Prado MD Work Phone: [facility] 05-16-2023 13:02-0400 Body weight 80.65 kg Caesar Prado MD Work Phone: [facility] 05-16-2023 13:02-0400 Diastolic blood pressure 55 mm[Hg] Caesar Prado MD Work Phone: [facility] 05-16-2023 13:02-0400 Heart rate 62 /min Caesar Prado MD Work Phone: [facility] 05-16-2023 13:02-0400 Respiratory rate 18 /min Caesar Prado MD Work Phone: [facility] 05-16-2023 13:02-0400 SaO2% (BldA) [Mass fraction] 100 % Caesar Prado MD Work Phone: [facility] 05-16-2023 13:02-0400 Systolic blood pressure 116 mm[Hg] Caesar Prado MD Work Phone: [facility] 04-25-2023 12:54-0400 Body height 162.6 cm Wayne Chavez APRN.COMPLIANCE PROJECT MANAGER Work Phone: [facility] 04-25-2023 12:54-0400 Body temperature 97.39 [degF] Wayne Chavez APRN.COMPLIANCE PROJECT MANAGER Work Phone: [facility] 04-25-2023 12:54-0400 Body weight 80.74 kg Wayne Chavez APRN.COMPLIANCE PROJECT MANAGER Work Phone: [facility] 04-25-2023 12:54-0400 Diastolic blood pressure 61 mm[Hg] Wayne Chavez APRN.COMPLIANCE PROJECT MANAGER Work Phone: [facility] 04-25-2023 12:54-0400 Heart rate 66 /min Wayne Wero [employer] MAKER.COMPLIANCE PROJECT MANAGER Work Phone: [facility] 04-25-2023 12:54-0400 Respiratory rate 16 /min Wayne Chavez APRN.COMPLIANCE PROJECT MANAGER Work Phone: [facility] 04-25-2023 12:54-0400 SaO2% (BldA) [Mass fraction] 97 % Wayne Chavez [employer] MAKER.COMPLIANCE PROJECT MANAGER Work Phone: [facility] 04-25-2023 12:54-0400 Systolic blood pressure 140 mm[Hg] Wayne Chavez [employer] MAKER.COMPLIANCE PROJECT MANAGER Work Phone: [facility] [facility] 04-04-2023 10:25-0400 Body height 162.6 cm Wayne Chavez [employer]PRODUCTS MAKER.COMPLIANCE PROJECT MANAGER Work Phone: [facility] 04-04-2023 10:25-0400 Body temperature 97.7 [degF] Wayne Chavez [employer]PR[employer] MAKER.COMPLIANCE PROJECT MANAGER Work Phone: [facility] 04-04-2023 10:25-0400 Body weight 80.29 kg Wayne Chavez [employer] MAKER.COMPLIANCE PROJECT MANAGER Work Phone: [facility] 04-04-2023 10:25-0400 Diastolic blood pressure 62 mm[Hg] Wayne Chavez [employer]PRODU[employer] MAKER.COMPLIANCE PROJECT MANAGER Work Phone: [facility] 04-04-2023 10:25-0400 Heart rate 67 /min Wayne Chavez APRN.COMPLIANCE PROJECT MANAGER Work Phone: [facility] 04-04-2023 10:25-0400 Respiratory rate 16 /min Wayne Chavez APRN.COMPLIANCE PROJECT MANAGER Work Phone: [facility] 04-04-2023 10:25-0400 SaO2% (BldA) [Mass fraction] 97 % Wayne Chavez APRN.COMPLIANCE PROJECT MANAGER Work Phone: [facility] 04-04-2023 10:25-0400 Systolic blood pressure 139 mm[Hg] Wayne Chavez [employer] MAKER.COMPLIANCE PROJECT MANAGER Work Phone: [facility] 03-12-2023 10:00-0400 Body weight 82.56 kg Shawn Nelson Other [facility] Other 03-12-2023 10:00-0400 Diastolic blood pressure 74 mm[Hg] Shawn Allenjuancarlos Other [facility] Other 03-12-2023 10:00-0400 Systolic blood pressure 128 mm[Hg] Shawn Tiffanyjuancarlos Other [facility] Other 01-31-2023 08:17-0400 Body height 162.6 cm Caesar Prado MD Work Phone: [facility] 01-31-2023 08:17-0400 Body temperature 97.5 [degF] Caesar Prado MD Work Phone: [facility] 01-31-2023 08:17-0400 Body weight 82.19 kg Caesar Prado MD Work Phone: [facility] 01-31-2023 08:17-0400 Diastolic blood pressure 59 mm[Hg] Caesar Prado MD Work Phone: [facility] 01-31-2023 08:17-0400 Heart rate 59 /min Caesar Prado MD Work Phone: [facility] 01-31-2023 08:17-0400 Respiratory rate 16 /min Caesar Prado MD Work Phone: [facility] 01-31-2023 08:17-0400 SaO2% (BldA) [Mass fraction] 97 % Caesar Prado MD Work Phone: [facility] 01-31-2023 08:17-0400 Systolic blood pressure 142 mm[Hg] Caesar Prado MD Work Phone: [facility] 01-02-2023 14:58-0400 Body height 167.6 cm Caesar Prado MD Work Phone: [facility] 01-02-2023 14:58-0400 Body temperature 97.3 [degF] Caesar Prado MD Work Phone: [facility] 01-02-2023 14:58-0400 Body weight 80.2 kg Caesar Prado MD Work Phone: [facility] 01-02-2023 14:58-0400 Diastolic blood pressure 58 mm[Hg] Caesar Prado MD Work Phone: [facility] 01-02-2023 14:58-0400 Heart rate 63 /min Caesar Prado MD Work Phone: [facility] 01-02-2023 14:58-0400 Respiratory rate 16 /min Caesar Prado MD Work Phone: [facility] 01-02-2023 14:58-0400 SaO2% (BldA) [Mass fraction] 97 % Caesar Prado MD Work Phone: [facility] 01-02-2023 14:58-0400 Systolic blood pressure 133 mm[Hg] Caesar Prado MD Work Phone: [facility] 12-05-2022 09:20-0500 Blood Pressure Location Jian RODRIGUEZ [facility] 12-05-2022 09:20-0500 Diastolic blood pressure 70 mm[Hg] Jian RODRIGUEZ [facility] 12-05-2022 09:20-0500 Heart rate 59 /min Jian RODRIGUEZ [facility] 12-05-2022 09:20-0500 Systolic blood pressure 146 mm[Hg] Jian RODRIGUEZ [facility] 11-26-2022 08:40-0500 Body height 167.6 cm Caesar Prado MD Work Phone: [facility] 11-26-2022 08:40-0500 Body temperature 97.7 [degF] Caesar Prado MD Work Phone: [facility] 11-26-2022 08:40-0500 Body weight 77.47 kg Caesar Prado MD Work Phone: [facility] 11-26-2022 08:40-0500 Diastolic blood pressure 63 mm[Hg] Caesar Prado MD Work Phone: [facility] 11-26-2022 08:40-0500 Heart rate 60 /min Caesar Prado MD Work Phone: [facility] 11-26-2022 08:40-0500 Respiratory rate 16 /min Caesar Prado MD Work Phone: [facility] 11-26-2022 08:40-0500 SaO2% (BldA) [Mass fraction] 97 % Caesar Prado MD Work Phone: [facility] 11-26-2022 08:40-0500 Systolic blood pressure 131 mm[Hg] Caesar Prado MD Work Phone: [facility] 09-12-2022 14:05-0500 Body height 167.6 cm Nicholas Saenz MD Work Phone: [facility] 09-12-2022 14:05-0500 Body weight 78.93 kg Nicholas Saenz MD Work Phone: [facility] 09-12-2022 14:05-0500 Diastolic blood pressure 79 mm[Hg] Nicholas Saenz MD Work Phone: [facility] 09-12-2022 14:05-0500 Heart rate 79 /min Nicholas Saenz MD Work Phone: [facility] 09-12-2022 14:05-0500 Systolic blood pressure 168 mm[Hg] Nicholas Saenz MD Work Phone: [facility] 09-12-2022 10:56-0500 Diastolic blood pressure 72 mm[Hg] Pacc 4 Work Phone: [facility] 09-12-2022 10:56-0500 Systolic blood pressure 170 mm[Hg] Pacc 4 Work Phone: [facility] 09-12-2022 10:55-0500 Body height 167.6 cm Pac 4 Work Phone: [facility] 09-12-2022 10:55-0500 Body temperature 98.29 [degF] Pacc 4 Work Phone: [facility] 09-12-2022 10:55-0500 Body weight 78.93 kg Pac 4 Work Phone: [facility] 09-12-2022 10:55-0500 Heart rate 66 /min Pac 4 Work Phone: [facility] 09-12-2022 10:55-0500 SaO2% (BldA) [Mass fraction] 96 % Pac 4 Work Phone: [facility] 03-08-2022 11:15-0400 Body weight 81.65 kg Augusto Komal Other [facility] Other 03-05-2022 12:37-0400 Body height 163.6 cm Soren Perea MD Work Phone: [facility] 03-05-2022 12:37-0400 Body temperature 97.81 [degF] Soren Perea MD Work Phone: [facility] 03-05-2022 12:37-0400 Body weight 83.01 kg Soren Perea MD Work Phone: [facility] 03-05-2022 12:37-0400 Diastolic blood pressure 61 mm[Hg] Soren Perea MD Work Phone: [facility] 03-05-2022 12:37-0400 Heart rate 56 /min Soren Perea MD Work Phone: [facility] 03-05-2022 12:37-0400 Respiratory rate 16 /min Soren Perea MD Work Phone: [facility] 03-05-2022 12:37-0400 SaO2% (BldA) [Mass fraction] 97 % Soren Perea MD Work Phone: [facility] 03-05-2022 12:37-0400 Systolic blood pressure 141 mm[Hg] Soren Perea MD Work Phone: [facility] 02-19-2022 12:37-0400 Body height 163.6 cm Corazon Alissa PA-C Work Phone: [facility] 02-19-2022 12:37-0400 Body temperature 97.59 [degF] Corazon Alissa PA-C Work Phone: [facility] 02-19-2022 12:37-0400 Body weight 82.19 kg Corazon Alissa PA-C Work Phone: [facility] 02-19-2022 12:37-0400 Diastolic blood pressure 59 mm[Hg] Corazon Alissa PA-C Work Phone: [facility] 02-19-2022 12:37-0400 Heart rate 67 /min Corazon Alissa PA-C Work Phone: [facility] 02-19-2022 12:37-0400 Respiratory rate 18 /min Corazon Alissa PA-C Work Phone: [facility] 02-19-2022 12:37-0400 SaO2% (BldA) [Mass fraction] 100 % Corazon Alissa PA-C Work Phone: [facility] 02-19-2022 12:37-0400 Systolic blood pressure 127 mm[Hg] Corazon Alissa PA-C Work Phone: [facility] 02-12-2022 12:56-0400 Body height 163.6 cm Soren Perea MD Work Phone: [facility] 02-12-2022 12:56-0400 Body temperature 97.39 [degF] Soren Perea MD Work Phone: [facility] 02-12-2022 12:56-0400 Body weight 84.46 kg Soren Perea MD Work Phone: [facility] 02-12-2022 12:56-0400 Diastolic blood pressure 62 mm[Hg] Soren Perea MD Work Phone: [facility] 02-12-2022 12:56-0400 Heart rate 52 /min Soren Perea MD Work Phone: [facility] 02-12-2022 12:56-0400 Respiratory rate 18 /min Soren Perea MD Work Phone: [facility] 02-12-2022 12:56-0400 SaO2% (BldA) [Mass fraction] 99 % Soren Perea MD Work Phone: [facility] 02-12-2022 12:56-0400 Systolic blood pressure 149 mm[Hg] Soren Perea MD Work Phone: [facility] 02-05-2022 12:40-0400 Body height 163.6 cm Soren Perea MD Work Phone: [facility] 02-05-2022 12:40-0400 Body temperature 97.59 [degF] Soren Perea MD Work Phone: [facility] 02-05-2022 12:40-0400 Body weight 84.91 kg Soren Perea MD Work Phone: [facility] 02-05-2022 12:40-0400 Diastolic blood pressure 62 mm[Hg] Soern Perea MD Work Phone: [facility] 02-05-2022 12:40-0400 Heart rate 57 /min Soren Perea MD Work Phone: [facility] 02-05-2022 12:40-0400 Respiratory rate 18 /min Soren Perea MD Work Phone: [facility] 02-05-2022 12:40-0400 SaO2% (BldA) [Mass fraction] 100 % Soren Perea MD Work Phone: [facility] 02-05-2022 12:40-0400 Systolic blood pressure 154 mm[Hg] Soren Perea MD Work Phone: [facility] 01-15-2022 12:35-0400 Body height 163.6 cm Corazon Alissa PA-C Work Phone: [facility] 01-15-2022 12:35-0400 Body temperature 98.1 [degF] Corazon Alissa PA-C Work Phone: [facility] 01-15-2022 12:35-0400 Body weight 84.28 kg Corazon Alissa PA-C Work Phone: [facility] 01-15-2022 12:35-0400 Diastolic blood pressure 63 mm[Hg] Corazon Alissa PA-C Work Phone: [facility] 01-15-2022 12:35-0400 Heart rate 63 /min Corazon Alissa PA-C Work Phone: [facility] 01-15-2022 12:35-0400 Respiratory rate 16 /min Corazon Alissa PA-C Work Phone: [facility] 01-15-2022 12:35-0400 SaO2% (BldA) [Mass fraction] 98 % Corazon Alissa PA-C Work Phone: [facility] 01-15-2022 12:35-0400 Systolic blood pressure 145 mm[Hg] Corazon Alissa PA-C Work Phone: [facility] 01-08-2022 09:09-0400 Body height 163.6 cm Soren Perea MD Work Phone: [facility] 01-08-2022 09:09-0400 Body temperature 97.11 [degF] Soren Perea MD Work Phone: [facility] 01-08-2022 09:09-0400 Body weight 83.55 kg Soren Perea MD Work Phone: [facility] 01-08-2022 09:09-0400 Diastolic blood pressure 80 mm[Hg] Soren Perea MD Work Phone: [facility] 01-08-2022 09:09-0400 Heart rate 62 /min Soren Perea MD Work Phone: [facility] 01-08-2022 09:09-0400 Respiratory rate 18 /min Soren Perea MD Work Phone: [facility] 01-08-2022 09:09-0400 SaO2% (BldA) [Mass fraction] 98 % Soren Perea MD Work Phone: [facility] 01-08-2022 09:09-0400 Systolic blood pressure 144 mm[Hg] Soren Perea MD Work Phone: [facility] Encounters Encounter Date Encounter Type Care Provider Facility Start: 11-02-2023 End: 11-03-2023 Emergency department patient visit JAIMEE Uriostegui 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); Malignant neoplasm of right kidney, except renal pelvis (HCC); Malignant neoplasm of ureter, unspecified laterality (HCC) Start: 08-29-2023 End: 09-19-2023 ambulatory [facility] Facility:[facility] Start: 08-29-2023 End: 08-29-2023 Office outpatient visit 25 minutes Caesar Prado MD Work Phone: Hematology/Oncology Comment on above: 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); Malignant neoplasm of ureter, unspecified laterality (HCC); Malaise and fatigue Start: 08-23-2023 End: 08-23-2023 ambulatory [facility] Facility:[facility] Start: 08-20-2023 ambulatory [facility] Start: 08-08-2023 End: 08-09-2023 ambulatory [facility] Facility:[facility] Start: 08-08-2023 Telephone encounter Margot galvin RN Work Phone: Hematology/Oncology Comment on above: Care Coordination (S ore Throat) Start: 07-18-2023 End: 07-19-2023 ambulatory [facility] Facility:[facility] Start: 07-18-2023 End: 07-19-2023 ambulatory Chair [...] (Primary Dx) Start: 06-27-2023 End: 06-27-2023 ambulatory [facility] Facility:[facility] Start: 06-27-2023 End: 06-27-2023 ambulatory Chair [address] [place] Work Phone: Hematology/Oncology Comment on above: Malignant [...] Start: 06-18-2023 End: 06-19-2023 ambulatory YOAN SNEED Facility:[facility] Start: 06-18-2023 End: 06-18-2023 ambulatory Rita Bhatt MD Work Phone: Urology Comment on above: Urothelial cancer (H CC) (Primary Dx) Start: 06-18-2023 End: 06-18-2023 Telemedicine consultation with patient Rita Bhatt MD Work Phone: [facility] Start: 06-06-2023 End: 06-06-2023 ambulatory Chair [...] Start: 05-07-2023 End: 05-08-2023 ambulatory YOAN SNEED Facility:[facility] Start: 05-07-2023 End: 05-07-2023 ambulatory Rita Bhatt MD Work Phone: Urology Comment on above: Malignant neoplasm o f urothelium (HCC) (Primary Dx) Start: 05-07-2023 End: 05-07-2023 Telemedicine consultation with patient Rita Bhatt MD Work Phone: [facility] Start: 04-26-2023 End: 04-29-[address] 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 Start: 03-19-2023 Evaluation and management of inpatient [facility] Start: 03-19-2023 Evaluation and management of inpatient MIGUEL IONA [facility] Start: 03-18-2023 Evaluation and management of inpatient MIGUEL IONA [facility] Start: 03-17-2023 Evaluation and management of inpatient CAMILO DUBOSE [facility] Start: 03-17-2023 End: 03-19-2023 Evaluation and management of inpatient PATRICIA WHITING [facility] Start: 03-15-2023 End: 03-15-2023 ambulatory JONATHAN LEIGH [facility] Start: 03-12-2023 End: 03-12-2023 ambulatory Shawn Nelson Other [facility] Other Start: 03-12-2023 Patient encounter procedure Shawn Nelson [facility] Start: 03-10-2023 End: 03-10-[address] DI OCHOA . Facility: Start: 03-07-2023 End: 03-07-2023 ambulatory YOAN M Y Facility:[facility] Start: 02-21-2023 End: 02-21-2023 ambulatory [facility] Facility:[facility] Start: 02-19-2023 End: 02-19-2023 ambulatory [facility] Facility[facility] Start: 01-31-2023 Telephone encounter Caesar garcía MD [facility] Comment on above: Return Call Request; Call pt Start: 01-31-2023 End: 01-31-2023 ambulatory YOAN M Y Facility:[facility] Start: 01-31-2023 End: 01-31-2023 ambulatory Chair [...] (Primary Dx) Start: 01-23-2023 End: 01-23-2023 ambulatory [facility] Facility:[facility] Start: 01-23-2023 End: 01-23-2023 ambulatory [facility] Facility:[facility] Start: 01-11-2023 End: 01-12-[address] [...] atment (Pembrolizumab) Start: 12-24-2022 End: 12-24-2022 ambulatory [facility] Facility:[facility] Start: 12-19-2022 Telephone encounter Jimbo alvarado MD Work Phone: [facility] Comment on above: Patient Update Start: 12-18-2022 End: 12-19-2022 ambulatory Jian RODRIGUEZ Facility:[facility] Start: 12-17-2022 Telephone encounter Lauren Mckeon RN Work Phone: Hematology/Oncology Comment on above: Care Coordination (R eschedule appointment) Start: 12-08-2022 End: 12-08-[address] YOAN SNEED . Facility: Start: 12-05-2022 End: 12-06-2022 ambulatory Jian RODRIGUEZ Facility:[facility] Start: 12-05-2022 End: 12-05-2022 Patient encounter procedure Jian RODRIGUEZ [facility] [place] Start: 12-03-2022 End: 12-03-2022 ambulatory [facility] Start: 11-26-2022 End: 11-26-2022 ambulatory YOAN SNEED Facility:[facility] Start: 11-26-2022 End: 11-26-2022 ambulatory Caesar Prado MD Work Phone: Hematology/Oncology Comment on above: Malignant neoplasm o f ureter, unspecified laterality (HCC) (Primary Dx) Start: 11-26-2022 End: 11-26-2022 Patient encounter procedure Caesar Prado MD Work Phone: [place] Start: 11-20-2022 End: 11-21-2022 ambulatory YOAN SNEED Facility:[facility] Start: 11-20-2022 End: 11-20-2022 ambulatory Rita Bhatt MD Work Phone: Urology Comment on above: 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 Facility:[facility] Start: 10-10-2022 End: 10-10-2022 ambulatory Shawn Nelson Other [facility] Other Start: 10-10-2022 Telephone encounter Shawn Barros [...] (HCC) Start: 09-12-2022 End: 09-12-2022 Admission to [facility] Pacc Main 4 Work Phone: [facility] Start: 09-12-2022 End: 09-12-2022 Preprocedural examination done Pacc Main 4 Work Phone: Pre Anesthesia Start: 07-30-2022 End: 07-30-2022 ambulatory Shawn Nelson Other [facility] Other Start: 07-30-2022 Telephone encounter Shawn Barros [facility] Start: 05-04-2022 ambulatory Claire Harrison RN [facility] Start: 03-26-2022 End: 03-26-2022 ambulatory Jimmy Tejada PA-C Work Phone: Urology Comment on above: Urothelial carcinoma (HCC) (Primary Dx) Start: 03-26-2022 End: 03-26-2022 Telemedicine consultation with patient Jimmy Tejada PA-C Work Phone: [facility] Start: 03-14-2022 ambulatory Claire Harrison RN [facility] Start: 03-13-2022 End: 03-13-2022 ambulatory Rita Bhatt MD Work Phone: Urology Comment on above: 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, unspecified laterality (HCC) (Primary Dx); Acute cystitis without hematuria Start: 03-13-2022 End: 03-13-2022 Telemedicine consultation with patient Rita Bhatt MD Work Phone: [facility] Start: 03-08-2022 End: 03-08-2022 ambulatory Augusto Sauceda Other [facility] Other Start: 03-08-2022 Office outpatient vi sit 25 minutes Augusto Sauceda [facility] Start: 03-05-2022 End: 03-05-2022 ambulatory Soren [...] Start: 02-19-2022 End: 02-19-2022 Patient encounter procedure Corazon MCLAUGHLIN-C Work Phone: [facility] Start: 02-12-2022 End: [...] Dx) Start: 01-15-2022 End: 01-15-2022 ambulatory Corazon JEFFRIESFashionQlub Work Phone: Hematology/Oncology Comment on above: Malignant [...] End: 07-08-2020 Subsequent hospital visit by physician 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 Comment on above: Performed By: #### I LASHAE, PSASC, VITAD #### [facility] [address] [id number] [address] Tan Oliveros Start: 09-12-2022 Urnls dip [...] Detail Author Start: 02-27-2032 Urine microalbumin profile [facility] Start: 09-19-2026 Diabetes Screening Diabetes Screenin g [facility] Start: 08-29-2026 Diabetes Screening Diabetes Screenin g [facility] Start: 08-08-2026 Diabetes Screening [facility] Screenin g [facility] [facility] Start: 07-18-2026 Diabetes Screening Diabetes Screenin g [facility] Start: 06-27-2026 Diabetes Screening Diabetes Screenin g [facility] Start: 06-06-2026 DIABET[facility]CREEN [facility] Start: 05-16-2026 DIABETES SCREEN [facility]EN [facility] Start: 04-25-2026 DIABETES SCREEN [facility]EN [facility] Start: 04-04-2026 DIABETES SCREEN [facility]CREEN [facility] Start: 01-23-2026 DIABETES SCREEN [facility]EN [facility] Start: 12-31-2025 DIABETES SCREEN DIABETES SCREEN [facility] Start: 11-19-2025 DIABETES SCREEN DIABETES SCREEN [facility] Start: 09-12-2025 DIABETES SCREEN DIABETES SCREEN [facility] Start: 03-16-2025 DIABETES SCREEN DIABETES SCREEN [facility] Start: 03-05-2025 DIABETES SCREEN DIABETES SCREEN [facility] Start: 02-19-2025 DIABETES SCREEN DIABETES SCREEN [facility] Start: 02-12-2025 DIABETES SCREEN [facility] Start: 02-05-2025 DIABETES SCREEN DIABETES SCREEN [facility] Start: 01-22-2025 DIABETES SCREEN DIABETES SCREEN [facility] Start: 01-15-2025 DIABETES SCREEN DIABETES SCREEN [facility] Start: 01-08-2025 DIABETES SCREEN [facility]CREEN [facility] Start: 10-07-2023 Shingrix Vaccine (2 of 2) Banks grix Vaccine (2 of 2) [facility] Start: 08-22-2023 End: 08-16-2024 Ct abdomen & pelvis w/contrast material CT ABD/PEL W IVCON Radiology Routine Malignant 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) Expected: 08/22/2023 (Approximate), Expires: 08/16/2024 [facility] Work Phone: Comment on above: Expected: 08/22/2023 (Approximate), Expires: 08/16/2024 Start: 08-22-2023 End: 08-16-2024 CT CHEST W IVCON CT CHEST W IVCON Radiology Routine Malignant 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) Expected: 08/22/2023 (Approximate), Expires: 08/16/2024 [facility] Work Phone: Comment on above: Expected: 08/22/2023 (Approximate), Expires: 08/16/2024 Start: 07-19-2023 End: 09-18-2023 CBC W Auto Differential panel - Blood CBC + DIFF Lab Routine Malignant 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) Malaise and fatigue Expected: 07/19/2023, Expires: 09/18/2023 [facility] Work Phone: Comment on above: Expected: 07/19/2023 , Expires: 09/18/2023 Start: 07-19-2023 End: 09-18-2023 Comprehensive metabolic 2000 panel - Serum or Plasma COMP METABOLIC PANEL Lab Routine Malignant 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) Malaise and fatigue Expected: 07/19/2023, Expires: 09/18/2023 [facility] Work Phone: Comment on above: Expected: 07/19/2023 , Expires: 09/18/2023 Start: 07-19-2023 End: 09-18-2023 Thyrotropin [Units/volume] in Serum or Plasma TSH BLD Lab Routine Malignant 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) Malaise and fatigue Expected: 07/19/2023, Expires: 09/18/2023 [facility] Work Phone: Comment on above: Expected: 07/19/2023 , Expires: 09/18/2023 Start: 06-14-2023 Covid-19 Vaccine () Covid-19 Vaccine () [facility] Start: 06-14-2023 Influenza vaccination [facility] Start: 04-25-2023 End: 06-25-2023 Thyroxine (T4) free [Mass/volume] in Serum or Plasma [facility] Work Phone: Comment on above: Expected: 04/25/2023 , Expires: 06/25/2023 Start: 04-25-2023 End: 06-25-2023 Triiodothyronine (T3) [Mass/volume] in Serum or Plasma [facility] Work Phone: Comment on above: Expected: 04/25/2023 , Expires: 06/25/2023 Start: 12-19-2022 End: 02-18-2023 Renal function 2000 panel - Serum or Plasma RENAL FUNCTION PANEL Lab Routine CELSO (acute kidney injury) ([facility]) Expected: 12/19/2022, Expires: 02/18/2023 [facility] Work Phone: Comment on above: Expected: 12/19/2022 , Expires: 02/18/2023 Start: 10-14-2022 ADVANCE DIRECTIVE DISCUSSION ADVANCE DIRECTIVE DISCUSSION [facility] Start: 10-14-2022 DEPRESSION ASSESSMENT DEPRESSION ASS ESSMENT [facility] Start: 06-14-2022 Influenza vaccination [facility] Start: 03-13-2022 End: 03-13-2023 ECG COMPLETE ECG COMPLETE ECG Routine 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, unspecified laterality (HCC) Expected: 03/13/2022, Expires: 03/13/2023 [facility] Work Phone: Comment on above: Expected: 03/13/2022 , Expires: 03/13/2023 Start: 02-19-2022 End: 04-21-2022 CBC W Auto Differential panel - Blood CBC + DIFF Lab Routine Malignant neoplasm of ureter, unspecified laterality (HCC) Expected: 02/19/2022, Expires: 04/21/2022 [facility] Work Phone: Comment on above: Expected: 02/19/2022 , Expires: 04/21/2022 Start: 02-19-2022 End: 04-21-2022 Comprehensive metabolic 2000 panel - Serum or Plasma COMP METABOLIC PANEL Lab Routine Malignant neoplasm of ureter, unspecified laterality (HCC) Expected: 02/19/2022, Expires: 04/21/2022 [facility] Work Phone: Comment on above: Expected: 02/19/2022 , Expires: 04/21/2022 Start: 01-22-2022 End: 03-24-2022 CBC W Auto Differential panel - Blood CBC + DIFF Lab Routine Malignant neoplasm of ureter, unspecified laterality (HCC) Expected: 01/22/2022, Expires: 03/24/2022 [facility] Work Phone: Comment on above: Expected: 01/22/2022 , Expires: 03/24/2022 Start: 01-22-2022 End: 03-24-2022 Comprehensive metabolic 2000 panel - Serum or Plasma COMP METABOLIC PANEL Lab Routine Malignant neoplasm of ureter, unspecified laterality (HCC) Expected: 01/22/2022, Expires: 03/24/2022 [facility] Work Phone: Comment on above: Expected: 01/22/2022 , Expires: 03/24/2022 Start: 12-14-2021 COVID-19 VACCINE (4 - Booster for Pfizer series) COVID-19 VACCINE (4 - Booster for Pfizer series) [facility] Start: 11-10-2021 COVID-19 VACCINE (4 - Booster for Pfizer series) COVID-19 VACCINE (4 - Booster for Pfizer series) [facility] Start: 11-10-2021 COVID-19 VACCINE (6 - Pfizer series) COVID-19 VACCINE (6 - Pfizer series) [facility] Start: 10-14-2021 ADVANCE DIRECTIVE DISCUSSION ADVANCE DIRECTIVE DISCUSSION [facility] Start: 10-14-2021 DEPRESSION ASSESSMENT DEPRESSION ASS ESSMENT [facility] Start: 06-14-2021 Influenza vaccination INFLUENZA (#1) [facility] Start: 02-13-2018 PNEUMOCOCCAL: 65+ (3 - PPSV23 or PCV20) PNEUMOCOCCAL: 65+ (3 - PPSV23 or PCV20) [facility] Start: 01-16-2013 Urine microalbumin profile DTAP,TDAP ,TD (1 - Tdap) [facility] Start: 1999 Hepatitis B Vaccine (1 of 3 - Risk 3-dose series) Hepatitis B Vaccine (1 of 3 - Risk 3-dose series) [facility] Start: 1999 RSV Vaccine (1 - 1-d ose 60+ series) RSV Vaccine (1 - 1-dose 60+ series) [facility] Start: 1989 SHINGRIX VACCINE (1 of 2) BANKS GRIX VACCINE (1 of 2) [facility] Start: 1958 Hepatitis A Vaccine (1 of 2 - Risk 2-dose series) Hepatitis A Vaccine (1 of 2 - Risk 2-dose series) [facility] Start: 1958 SHINGRIX VACCINE (1 of 2) BANKS GRIX VACCINE (1 of 2) [facility] Start: 1957 MMR Vaccine (1 of 2 - Risk 2-dose series) MMR Vaccine (1 of 2 - Risk 2-dose series) [facility] Start: 1949 Meningococcal B Vacc ine: Consider Based On Risk (1 of 4 - Increased Risk) Meningococcal B Vaccine: Consider Based On Risk (1 of 4 - Increased Risk) [facility] End: 06-14-2024 Ct abdomen & pelvis w/contrast material CT ABD/PEL W IVCON Radiology Routine Malignant 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) 1 Occurrences starting 05/16/2023 until 06/14/2024 [facility] Work Phone: Comment on above: 1 Occurrences starti ng 05/16/2023 until 06/14/2024 End: 06-14-2024 CT CHEST W IVCON CT CHEST W IVCON Radiology Routine Malignant 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) 1 Occurrences starting 05/16/2023 until 06/14/2024 [facility] Work Phone: Comment on above: 1 Occurrences starti ng 05/16/2023 until 06/14/2024 ECG COMPLETE ECG COMPLETE ECG Routine Pre-op evaluation 09/12/2022 11:47 AM [facility] Work Phone: REFERRAL FOR ADDITIO NAL BIOMARKER AND MOLECULAR TESTING REFERRAL FOR ADDITIONAL BIOMARKER AND MOLECULAR TESTING Lab Routine Malignant neoplasm of ureter, unspecified laterality (HCC) 12/03/2022 9:12 AM [facility] Immunizations Immunization Date Immunization Notes Care Provider Laurence rockwell 08-12-2023 zoster vaccine recombinant Chair Fam Work Phone: [facility] 02-26-2022 diphtheria, tetanus toxoids and pertussis vaccine Chair Fam Work Phone: [facility] 09-15-2021 SARS-CoV-2 (COVID-19 ) mRNA BNT-162b2 vax Jian RODRIGUEZ [facility] 11-26-2020 SARS-CoV-2 (COVID-19 ) mRNA BNT-162b2 vax Jian RODRIGUEZ [facility] 11-05-2020 SARS-CoV-2 (COVID-19 ) mRNA BNT-162b2 vax Jian RODRIGUEZ [facility] 08-09-2015 influenza nasal, unspecified formulation Chair Fam Work Phone: [facility] 08-09-2015 influenza virus vacc ine, unspecified formulation Jian RODRIGUEZ [facility] 08-09-2015 influenza, intraderm al, quadrivalent, preservative free, injectable Soren Perea MD Work Phone: [facility] 01-07-2015 pneumococcal conjuga te vaccine, 13 valent Soren Perea MD Work Phone: [facility] 02-13-2013 pneumococcal polysaccharide vaccine, 23 valent Soren Perea MD Work Phone: [facility] 01-15-2013 tetanus and diphther ia toxoids, adsorbed, preservative free, for adult use (2 Lf of tetanus toxoid and 2 Lf of diphtheria toxoid) Jian RODRIGUEZ [facility] 01-15-2013 tetanus and diphther ia toxoids, adsorbed, preservative free, for adult use (5 Lf of tetanus toxoid and 2 Lf of diphtheria toxoid) Soren Perea MD Work Phone: [facility] Payers Date Payer Category Payer Private Health Insurance [facility] AARP SUPPLEMENT [id number] 2021-Present [phone] [address] [place] [address] Indemnity [id number] 2019 Medicare [id number] 2017 Private Health Insurance [id number] 2005 Medicare MEDICARE MEDICAR E A AND B [id number] 2005-Present [phone] [place] [address] Medicare [id number] 2005 Medicare MEDICARE MEDICAR E A AND B [id number] 2005-Present [phone] [place] [address] Medicare [id number] 1959 Medicare [id number] 1959 Medicare [id number] 1959 Unknown [id number] 1939 Unknown [id number] 1939 Unknown [id number] 1939 Unknown [id number] 1939 Unknown [id number] 1939 Unknown [id number] 1939 Unknown [id number] 1939 Unknown [id number] 1939 Unknown [id number] 1939 Unknown [id number] Unknown Unknown [id number] Social History Date Type Detail Facility Start: 07-14-2018 End: 11-26-2022 Tobacco smoking status NHIS Ex-smoker [facility] Comment on above: patient quit smoking over 30 years ago End: 10-14-1970 History of tobacco use Current smoker [facility] End: 10-14-1970 History of tobacco use Cigarette Smoker [facility] Start: 07-14-2018 End: 02-19-2023 Cigarettes smoked current (pack per day) - Reported 1 [facility] Start: 07-14-2018 End: 11-26-2022 Tobacco use and exposure Smokeless tobacco non-user [facility] Start: 01-08-2022 End: 09-19-2023 Alcohol intake Current non-drinker of alcohol (finding) [facility] Start: 1940 Sex Assigned At Male [facility] Start: 12-29-2021 End: 09-12-2022 Exposure to SARS-CoV-2 (event) Not sure [facility] Start: 02-19-2023 End: 03-07-2023 Sex Assigned At [facility] History of tobacco use Passive smoker [facility] Tobacco smoking status Never [facility] Comment on above: patient quit smoking over 30 years ago Start: 09-28-2019 Gender identity Identifies as male gender (finding) [facility] Start: 09-28-2019 Sexual orientation Heterosexual (nestor steele) [facility] Medical Equipment Procedure Code Equipment Code Equipment Origin al Text Equipment Identifier Dates Inlay [place] Ureteral Stent Kit 7f X 26cm [id number] Start: 10-29-2019 Stent Inlay Opti ma 7fr Taper [place] Green Polymer Phreecoat 24cm Ureteral - [id number] Start: 08-12-2019 Stent Inlay Opti ma 7fr Taper [place] Green Polymer Phreecoat 26cm Ureteral - [id number] Start: 09-30-2019 Stent Nicore Inl ay [place] 7fr Taper [place] Green Nitinol Polymer 24cm - [id number] Start: 10-26-2021 Stent Inlay Opti ma 6fr Taper [place] Green Polymer Phreecoat 24cm Ureteral - [id number] Start: 11-12-2022 Functional Status Date Assessment Result Facility 12-05-2022 Functional Status N/A [facility] Clinical Notes 07-08-2020 to 10-10-2023 Caesar Prado MD - 08/29/2023 1:30 PM ESTPatient InstructionsTelephone Encounter - Margot So RN - 08/08/2023 11:55 AM EDTPatient InstructionsAbCaesar palacio MD - 07/18/2023 1:30 PM EDT Note Date & Type Note Facility 10-10-2023 Note [facility] 09-19-2023 Note [facility] 08-29-2023 Note [facility] 08-29-2023 History of Present illness Narrative Images from the original note were not included. NAME: Juan Jose Austin [facility] NO.: [id number] DATE OF SERVICE: August 29, 2023 (Eve) [...] pacemaker was inserted on on 03/18/2023 at [facility] with Dr. Bautista. His shortness of breath [...] he is a poor candidate for chemotherapy, [place] based or otherwise. Surgery would yield him [...] which included preparing to see the patient, [id number] patient care, completing clinical documentation, performing a medically appropriate examination, counseling and educating the patient/family/caregiver, ordering medications, tests, or procedures, independently interpreting results (not separately reported), communicating results to the patient/family/caregiver, and care coordination (not separately reported). Caesar Prado MD, CPE Hematology and Oncology Services Provided at: [place], [place] CC: No referring provider defined for this encounter. Yoan Sneed MD [address] [facility] [id number] documented in this encounter [facility] 08-29-2023 Instructions Caesar Prado MD - 08/29/2023 [...] restart his Keytruda. documented in this encounter [facility] 08-23-2023 Note [facility] 08-23-2023 Note [facility] 08-20-2023 Note [place] Electrophysiology Consult Note Reason for visit: S/P PPM hospital follow up Date of Telehealth Visit: 08/20/23 The patient was notified that using 3rd democrat telecommunication application (e.g., [employer]) is not HIPPA compliant and may carry some privacy risks. Yes The visit was conducted ebco-de-wuab with the use of audio and video [...] moderate, relieved by rest. He was evaluated [facility] ED and his CBC, BMP, BNP, Liver [...] significantly reduced left-ventr (more content not included)... [facility] 08-08-2023 Miscellaneous Notes FYI: Pt [...] Margot So, RN documented in this encounter [facility] 07-18-2023 Note [facility] 07-18-2023 Instructions Caesar Prado MD - 07/18/2023 1:39 PM EDT Proceed with cycle 9 pembrolizumab today. In 3 weeks to for cycle 10. Labs prior No clinician RTC in 6 weeks prior to C11 Labs every [address] in 5 weeks documented in this encounter [facility] 07-18-2023 History of Present illness Narrative Images [...] pacemaker was inserted on on 03/18/2023 at [facility] with Dr. Bautista. His shortness of breath [...] he is a poor candidate for chemotherapy, [place] based or otherwise. Surgery would yield him [...] which included preparing to see the patient, wycn-lb-elfu patient care, completing clinical documentation, performing a medically appropriate examination, counseling and educating the patient/family/caregiver, ordering medications, tests, or procedures, independently interpreting results (not separately reported), communicating results to the patient/family/caregiver, and care coordination (not separately reported). Caesar Prado MD, CPE [facility]ematology [facility] Oncology Services Provided at: [place], [place] CC: No referring provider defined for this encounter. Yoan Sneed MD [address] [facility] [id number] documented in this encounter [facility] 06-27-2023 Note [facility] 06-27-2023 History of Present illness Narrative ONCOLOGY [...] pacemaker was inserted on on 03/18/2023 at [facility] with Dr. Bautista. His shortness of breath [...] he is a poor candidate for chemotherapy, [place] based or otherwise. Surgery would yield him [...] APRN.CNP Hematology and Oncology Services Provided at: [place], [place] I spent a total of 30 minutes on the date of the service which included preparing to see the patient, [id number] patient care, completing clinical documentation, obtaining and/or reviewing separately obtained history, performing a medically appropriate examination, counseling and educating the patient/family/caregiver, ordering medications, tests, or procedures, independently interpreting results (not separately reported), and communicating results to the patient/family/caregiver. documented in this encounter [facility] 06-18-2023 Note [facility] 06-18-2023 History of Present illness Narrative VIRTUAL VISIT PROGRESS NOTE This is a virtual visit using Audio only. It required patient-provider interaction for the medical decision making as documented below. I have communicated my name and active licensure. The patient's identity and physical location were verified at the time of this visit. Either the patient or their legal circulation sales representative has been informed of the risks [...] Sandy Bhatt MD documented in this encounter [facility] 06-06-2023 Note [facility] 06-06-2023 History of Present illness Narrative Images [...] pacemaker was inserted on on 03/18/2023 at [facility] with Dr. Bautista. His shortness of breath [...] he is a poor candidate for chemotherapy, [place] based or otherwise. Surgery would yield him [...] which included preparing to see the patient, djoj-us-iorl patient care, completing clinical documentation, performing a medically appropriate examination, counseling and educating the patient/family/caregiver, ordering medications, tests, or procedures, and independently interpreting results (not separately reported). Caesar Prado MD, CPE H[facility]ology [facility] Oncology Services Provided at: [place], [place] documented in this encounter [facility] 05-31-2023 Miscellaneous Notes Requested Prescriptions Pending Prescriptions Disp Refills tamsulosin (FLOMAX) 0.4 mg 30 capsule 5 Sig: Take 1 capsule by mouth once daily. DAUGHTER STATES PATIENT IS OUT OF PILLS documented in this encounter [facility] 05-31-2023 Note [facility] 05-31-2023 Note [facility] 05-16-2023 Note [facility] 05-16-2023 Instructions Caesar Prado MD - 05/16/2023 2:[address] CAP in 1 -2 weeks Reschedule appointment with Dr. Bhatt after CT. Proceed with cycle 6 pembrolizumab today. Follow up in 3 weeks to for cycle 7. Labs prior. Review Scans Hold Lasix for a few days to see if mouth improves. documented in this encounter [facility] 05-16-2023 History of Present illness Narrative Images [...] pacemaker was inserted on on 03/18/2023 at [facility] with Dr. Bautista. His shortness of breath [...] he is a poor candidate for chemotherapy, [place] based or otherwise. Surgery would yield him [...] which included preparing to see the patient, gold-rk-[id number] patient care, completing clinical documentation, performing a medically appropriate examination, counseling and educating the patient/family/caregiver, ordering medications, tests, or procedures, and independently interpreting results (not separately reported). Caesar Prado MD, CPE Hematology and Oncology Services Provided at: [place], [place] documented in this encounter [facility] 05-07-2023 Note HNO ID: [id number] Author: Rita Bhatt MD Service: ? Author Type: Physician Type: Progress Notes Filed: 05/25/2023 4:55 PM Note Text: s [facility] 05-07-2023 History of Present illness Narrative s documented in this encounter [facility] 05-06-2023 Note -hx of flutter -not on ac , on aspirin Does not want AC -no flutter since recommended for ablation per documentation -will monitor device for arrhythmia [facility] 05-06-2023 Note -s/p DC PPM -device check stable [facility] 05-06-2023 Note -stable -ct meds [facility] 05-06-2023 Note - NYHA I-2 GDMT: Losartan 50 mg, Toprol-XL 25 mg, Isordil 20 mg twice daily, hydralazine 25 mg 3 times daily, Lasix 20 mg daily, Lipitor 10 mg daily, aspirin 81 mg, amlodipine 10 mg -pending repeat echo, previously echo 04/05 EF 48% [facility] 04-26-2023 Note Review of Systems All other systems reviewed and are negative. [facility] 04-26-2023 Note [place] Electrophysiology Consult Note Reason for visit: S/P [...] moderate, relieved by rest. He was evaluated [facility] ED and his CBC, BMP, BNP, Liver [...] failure treatment by (more content not included)... [facility] 04-25-2023 Note [facility] 04-25-2023 History of Present illness Narrative Images [...] Updated Visit, April 04, 2023: Juan Jose Watson Austin returns for follow-up. Since his last visit he had a pacemaker placed due to syncopal episodes. The pacemaker was inserted on on 03/18/2023 at [facility] with Dr. Bautista. His shortness of breath [...] he is a poor candidate for chemotherapy, [place] based or otherwise. Surgery would yield him [...] to discuss when to restage. Wayne Chavez APRN.[facility] Hematology and Oncology Services Provided at: [facility], [place], [place] I spent a total of 30 minutes on the date of the service which included preparing to see the patient, [id number] patient care, completing clinical documentation, obtaining and/or reviewing separately obtained history, performing a medically appropriate examination, counseling and educating the patient/family/caregiver, ordering medications, tests, or procedures, independently interpreting results (not separately reported), and communicating results to the patient/family/caregiver. documented in this encounter [facility] 04-04-2023 Note [facility] 04-04-2023 History of Present illness Narrative Images [...] pacemaker was inserted on on 03/18/2022 at [facility] with Dr. Bautista. His shortness of breath [...] he is a poor candidate for chemotherapy, [place] based or otherwise. Surgery would yield him [...] APRN.CNP Hematology and Oncology Services Provided at: [place], [place] I spent a total of 30 minutes on the date of the service which included preparing to see the patient, [id number] patient care, completing clinical documentation, obtaining and/or reviewing separately obtained history, performing a medically appropriate examination, counseling and educating the patient/family/caregiver, ordering medications, tests, or procedures, independently interpreting results (not separately reported), and communicating results to the patient/family/caregiver. documented in this encounter [facility] 03-27-2023 Note Patient seen for wou nd check s/p [employer] pacemaker placement on 03/18/2023. Wound is [...] been scheduled for device and follow-up appointment. [facility] 03-19-2023 Note Hospital Medicine Discharge [...] medication deferred to the outpatient follow-up with palliative care physician. Dear Dr. Naren MD, Juan Jose is advised to follow up with you within 1-2 weeks. Follow-up with: Cardiology Scheduled appointments: Future Appointments Date Time Provider Department Center 03/27/2023 9:20 AM Dagoberto James NP [facility] 2023 10:00 AM Josesito Villanueva NP [facility] Your medication list START taking these medications [...] Your Medications These medications were sent to [facility] [id number] [facility] [address] [facility] [address] [address] [facility] [address] doxycycline 100 mg capsule hydrALAZINE 25 mg [...] and/or family and (more content not included)... [facility] 03-19-2023 Note 03/19/23 1601 Referral Data Referral Source precision layout worker Activities of Daily Living Living Arrangement (Current/Prior to Hospitalization) Private residence Discharge Planning Support Systems Spouse/significant other;Children Type of Residence/Post Acute Needs Private residence [facility] 03-19-2023 Note continuing left leg [...] Value Ventricular Rate 60 Atrial Rate 60 WI Interval 192 QRS DURATION 168 QT Interval 474 QTC CALCULATION(BAZETT) 474 P [place] 30 R-Caled[place] 5 T Wave [place] 263 Impression AV dual-paced rhythm Confirmed by [...] degree AV block, LBBB s/p dual chamber [employer] PPM placement. Syncope Compensated HFrEF 55% [...] stable lead thresholds Josesito Villanueva NP [facility] [id number] [facility] 03-19-2023 Note Physical Therapy Physical Therapy Evaluation Patient Name: Juan Jose Austin : 1940 Today's Date: 03/19/2023 Patient is an 82 y./o. male who was scheduled for a pacemaker implantation prior to an unwitnessed syncope episode. Patient was admitted to [facility] on 03/16/2023 and the pacemaker was implanted [...] fractured hip last week and is in fdc currently. Pt. reported daughter lives nearby and [...] Level of Function Prior Function Level of [place]: Independent with ADLs and functional transfers Prior [...] to your side (more content not included)... [facility] 03-19-2023 Note 03/19/23 0946 Admission Assessment Questions Verify insurance with patient [...] link and activate MyChart? No (Status: pending) [facility] 03-18-2023 Note Hospital Medicine Daily Progress Note - 03/18/2023 3:12 PM; Room: [address] [place] [address] Admission: 03/16/2023 10:06 PM; Length of stay: 2 days THE HOSPITALIST TEAM PREFERS TO USE [employer] CHAT FOR COMMUNICATION 7AM-7PM. IF I DO NOT RESPOND WITHIN 15 MINUTES, PLEASE PAGE ME/CALL THROUGH THE HARNESS PREPARER. FROM 7PM-7AM, PLEASE PAGE [phone](COVR) Code Status: Full Code Discharge Destination: home [...] LDL 84 03/16/2023 No results found for: DRYIAMPY12, IRON, TIBC, C3, C4, KODY, CANCA, ASO, PSA, CEA, CA125, CA199, AFP, CA153 Imaging Electrophysiology procedure Narrative: Images from the original result were not included. DUAL CHAMBER PACEMAKER IMPLANT PROCEDURE NOTE DATE OF PROCEDURE: 03/18/2023 PERFORMING PHYSICIAN: Dr. Jimbo Bautista OUTREACH ANALYST: Dr John Quiroga CONSENT: Patient LOCATION: EP Lab PROCEDURE PERFORMED: 1. Implantation of pacemaker ([employer]) 2. Ultrasound guided venous access INDICATIONS: [...] unwitnessed syncopal episode and was admiited to [facility]. On evaluation, the patient was having heart rates in the 20s to 30s with symptoms and transferred to [facility]. He was started on a dopamine drip for bradycardia and it elevated his heart rates into the 40s. PROCEDURAL DETAILS: (more content not included)... [facility] 03-18-2023 Note Attestation signed by Brandie Michel MD at 03/18/2023 12:51 PM I did not personally examine the patient. I discussed the case with the resident/fellow Dr Blas. Teaching Physician's Revisions: Brandie Michel MD, MPH, [facility], [facility], [facility] Interventional Cardiology Pager Email: [email or web address] Cardiology Progress Note Subjective Subjective: Juan Jose [...] Value Ventricular Rate 39 Atrial Rate 39 WI Interval 342 QRS DURATION 156 QT Interval 504 QTC CALCULATION(BAZETT) 405 P [place] 17 R-Caledonia -84 T Wave [place] 10 Impression Marked sinus bradycardia with 1st [...] PROCEDURE: 03/18/2023 PERFORMING PHYSICIAN: Dr. Jimbo Bautista OUTREACH ANALYST: Dr John Quiroga CONSENT: Patient LOCATION: EP Lab PROCEDURE PERFORMED: 1. Implantation of pacemaker ([employer]) 2. Ultrasound guided venous access INDICATIONS: [...] unwitnessed syncopal episode and was admiited to [facility]. On evaluation, the patient was having heart rates in the 20s to 30s with symptoms and transferred to [facility]. He was started on a dopamine drip [...] access was o (more content not included)... [facility] 03-18-2023 Note Transport at bedside to take pt down to xray- typically xray is not completed until the AM after pacemaker insertion- Called Dr. Blas rn social work- okay to send down now. [facility] 03-18-2023 Note Patient back from EP lab with new pacer and hooked up to monitor- vitals obtained. Patient has a few medications auto held- all from Dr. Blas with cardiology. RN called rn social work at this time- continue to hold meds- only giving asa, iron tablet, and flomax at this time. Hold heparin subcutaneous and all other auto held medications- will re-evaluate in the afternoon. RN to follow up. [facility] 03-18-2023 Note DUAL CHAMBER PACEMAK ER IMPLANT PROCEDURE NOTE DATE OF PROCEDURE: 03/18/2023 PERFORMING PHYSICIAN: Dr. Jimbo Bautista OUTREACH ANALYST: Dr John Quiroga CONSENT: Patient LOCATION: EP Lab PROCEDURE PERFORMED: 1. Implantation of pacemaker ([employer]) 2. Ultrasound guided venous access INDICATIONS: [...] unwitnessed syncopal episode and was admiited to [facility]. On evaluation, the patient was having heart rates in the 20s to 30s with symptoms and transferred to [facility]. He was started on a dopamine drip [...] using modified seldinger technique using a 5 Montserratian micro-puncture needle on two occasions and 0.35 [...] pocket was created for the device. 9/6 Montserratian Safesheaths were placed over the wire. An active fixation [employer] pacing lead was then delivered through the SPCC sheath via 9Fsheath to the right ventricle. After confirmation of lead position on orthogonal views (HESTER and THAI) to confirm septal position, the screw was activated, and the lead was placed in the right ventricular mid cavity towards the septum. After confirmation of good sensing parameters, injury pattern and pacing thresholds, 10V pacing was done and no diaphragmatic stimulation was noted. It was then secured in the pocket using three 1-0 Silk sutures. Then an active fixation [employer] lead was delivered through the 6Fsheath to the right atrial appendage. After confirmation of lead position on orthogonal views (HESTER and THAI), the screw was activated. After confirmation of [...] 100mg bid. Jimbo Bautista MD Cardiac Electrophysiology [facility] 03-18-2023 Note Patient: Juan Jose Austin Procedure Information Date/Time: 03/18/23 1500 Procedure: Implant PPM Location: [facility] MINERAL ENGINEER 1 EP / [facility] HV VASCULAR LAB (Cath) Providers: Jimbo Bautista [...] Plan discussed with attending. Additional Equipment Requests [facility] 03-18-2023 Note Patient down to EP l ab for pacemaker at this time. [facility] 03-18-2023 Note RN called daughter a t this time-per EP lab and cardiology- moving up patient first for pacer and coming to grab patient in about a half hour. Daughter states she will make it up as soon as she can. [facility] 03-18-2023 Note RN called cardiology at this time regarding orders for dopamine gtt and patient's HR. Orders are to titrate for BP not for HR. Patient's heart rate this morning has ranged from high 20's to high 30's- averaging around 35 BPM. rn social work said do not titrate gtt- keep at 5 mcg/kg/min at this time and are trying to move patient up on the list for a pacer. RN to relay message to patient and to call if moving up in time. [facility] 03-17-2023 Note Hospital Medicine Daily Progress Note - 03/17/2023 10:00 AM; Room: [address] [place] [address] Admission: 03/16/2023 10:06 PM; Length of stay: 1 days THE HOSPITALIST TEAM PREFERS TO USE [employer] CHAT FOR COMMUNICATION 7AM-7PM. IF I DO NOT RESPOND WITHIN 15 MINUTES, PLEASE PAGE ME/CALL THROUGH THE HARNESS PREPARER. FROM 7PM-7AM, PLEASE PAGE [phone](COVR) Code Status: Full Code Discharge Destination: home [...] LDL 84 03/16/2023 No results found for: [id number], IRON, TIBC, C3, C4, KODY, CANCA, ASO, [...] San MD Hospital Medicine 03/17/2023 10:00 AM [facility] 03-17-2023 Note . Hospital Medicine History and Physical 03/16/2023 11:16 PM THE HOSPITALIST TEAM PREFERS TO USE [employer] FOR COMMUNICATION 7AM-7PM. IF I DO NOT RESPOND WITHIN 15 MINUTES, PLEASE PAGE ME/CALL THROUGH THE HARNESS PREPARER. FROM 7PM-7AM, PLEASE PAGE [phone](COVR) Chief Complaint No chief complaint on file. [...] syncopal episod CKD. 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 Pa (more content not included)... [facility] 03-15-[address] Andreina hassan and he recommended perm Pacemaker- orders sent and d/w pt and daughter= provided pt education pamphlet for Pacemaker that reviewed indications, risks vs benefits of procedure and pt voiced understanding and is agreeable with proceeding with PPM [facility] 03-15-2023 Note Hypertension is cont rolled Continue med regime [facility] 03-15-2023 Note Noted bradycardia, w ith 1st AV block, 2:1 AV block, NSVT 3 and 5 beat run with syncopal episode and near syncopal episodes. Pt is unsure if he has stopped toprol- therefore d/w them to stop Toprol. D/W Dr Bautista and plan for perm pacemaker implant MONTRELL in light of syncope [facility] 03-15-2023 Note [facility] CARDIOLOGY PROGR [...] me. He was evaluated in ED at [facility], and Dr Sneed had a 7 [...] moderate, relieved by rest. He was evaluated [facility] ED and his CBC, BMP, BNP, Liver [...] At last visi (more content not included)... [facility] 03-15-2023 Note Patient here for [facility] for syncopal event. He did wear [...] All other systems reviewed and are negative. 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 Thank you documented in this encounter[facility]2023 NoteHNO ID: [id number] Author: Padmini Mike RN Service: ? Author Type: Registered Nurse Type: Progress Notes Filed: 01/31/2023 10:35 AM Note Text: No labs today per Dr. Prado. Padmini Mike RNRegency Hospital Company04-20-2023 [facility] History of Present illness Narrative* Padmini Mike RN - 01/31/2023 9:22 AM EDT No labs today per Dr. Prado. Padmini Mike RN documented in this encounterSelect [facility]-2023 Instructions* Patient Instructions* Caesar Prado MD - 01/31/2023 8:50 AM EDT Resume C2 pembrolizumab today. RTC in 3 weeks Ask Ms. So to call next week to heck symptoms documented in this encounterSelect [facility]-2023 History of Present illness Narrative* Caesar Prado [...] he is a poor candidate for chemotherapy, [place] based or otherwise. Surgery would yield him [...] which included preparing to see the patient, gjry-qh-xvjt patient care, completing clinical documentation, performing a medically appropriate examination, counseling and educating the patient/family/caregiver, ordering medications, tests, or p rocedures, communicating with other HCPs (not separately reported), independently interpreting results (not separately reported), and communicating results to the patient/family/caregiver. Caesar Prado MD, CPE Hematology and Oncology Services Provided at: [place], [place] documented in this encounterSelect Medical [facility]04-12-2023 [facility]-12-2023 [facility]03-28-2023 Miscellaneous Notes * Telephone Encounter - Margot [...] protocol. Margot So RN documented in this encounterSelect Medical Specialty [facility]03-22-2023 [facility]03-22-2023 Instructions* Patient Instructions* Caesar Prado MD - 01/02/2023 3:18 PM EDT Start Keytruda q 3 weeks Labs same day. RTC 3 weeks with Wayne / Corazon C2 documented in this encounterSelect Medical [facility]03-22-2023 History of Present illness Narrative* Caesar Prado [...] he is a poor candidate for chemotherapy, [place] based or otherwise. Surgery would yield him [...] which included preparing to see the patient, aauh-ad-oppi patient care, completing clinical documentation, obtaining and/or reviewing separately obtained history, counseling and educating the patient/family/caregiver, ordering medications, edin ts, or procedures, independently interpreting results (not separately reported), and communicating results to the patient/family/caregiver. Caesar Prado MD, CPE Hematology and Oncology Services Provided at: [place], [place] documented in this encounterSelect Medical [facility]03-22-2023 Nurse Note* Liberty Hayes - 01/02/2023 3:08 PM EDT Pt requested recent blood work faxed to Dr. Sneed. Faxed via [employer]. Liberty Hayes documented in this encounterSelect Medical Specialty [facility]03-20-2023 [facility]03-[facility]-2023 History of Present illness Narrative* Margot So [...] N/A Margot So RN documented in this encounterSelect Medical Specialty [facility]03-13-2023 [facility]03-08-2023 Miscellaneous Notes* Telephone Encounter - Jimbo Alarcon MD - 12/19/2022 8:54 AM EST Patient cancelled Nephrology appt for 12/20/22. Called patient, plan to get labs in the coming days to ensure continued improvement of Cr. documented in this encounterSelect Medical Specialty [facility]03-06-2023 Miscellaneous Notes* Telephone Encounter - Lauren Mendez - 12/17/2022 11:21 AM EST Called patient and r/s to next week * Telephone Encounter - Lauren Mckeon RN - 12/17/2022 11:15 AM EST Pt's caris testing has not been resulted yet. Please call pt and reschedule to next week per Dr Moncada's request. Thanks Lauren Mckeon RN documented in this encounterSelect Medical Specialty [facility]02-22-2023 Hospital Discharge instructions Patient Education 12/05/2022 10:40:17 [...] cells. Follow these instructions at home: Take twjx-zlk-dfbpcrp and prescription medicines only as told by [...] is important. Where to find more information [place] [employer]: www.cancer.org National Cancer [place] (NCI): www.cancer.gov Contact a health care provider [...] 10/02/2004 Document Revised: 09/12/2018 Document Reviewed: 09/03/2017 X BODY Patient Education 2020 [employer]. Follow Up Care 11/23/2022 15:08:18 With:JENNIFER FOUNTAIN, Jian Lee, TIFFANIE Address: [facility] [address], [place] [address]- When: Unknown [facility] Cristel 02-20-2023 NoteUT Cardiology - [facility] Iain Austin is a 82 y.o. year old male patient being seen for 8 mo follow up Congestive Heart Failure, Hypertension, and Atrial Flutter Had labs in Sep 2022. He presented to [facility] ED a few weeks ago for hematuria, and was transferred to [facility] for nephrology issues. Aspirin was stopped. Hematuria [...] moderate, relieved by rest. He was evaluated [facility] ED and his CBC, BMP, BNP, Liver [...] treatment by adding hydralazin (more content not included)...[facility]02-13-2023 [facility]Reg[facility]02-13-2023 Instructions* Patient Instructions* Caesar Prado MD - 11/26/2022 9:29 AM EST 1. Virtual visit 3 weeks after discussion with Dr. Bhatt and consideration of molecular studies. 2. AP Mol. documented in this encounterSelect Medical Specialty [facility]02-13-2023 History of Present illness Narrative* Caesar Prado [...] CPE Hematology and Oncology Services Provided at: [place], [place] I spent a total of 40 minutes on the date of the service which included preparing to see the patient, liie-th-gciy patient care, completing clinical documentation, obtaining and/or reviewing separately obtained history, performing a medically appropriate examination, counseling and educating the pat ient/family/caregiver, ordering medications, tests, or procedures, independently interpreting results (not separately reported) and communicating results to the patient/family/caregiver. documented in this encounterSelect Medical Specialty [facility]02-13-2023 Nurse Note* Jami Hernandez MA - 11/26/2022 8:47 AM EST Patient was recently in the Hospital for cancer ([facility] are in chart), he will havehis ureteral stent removed locally by Dr. Rodriguez. Jami Hernandez MA documented in this encounterSelect Medical Specialty [facility]02-07-2023 [facility]02-07-2023 History of Present illness Narrative* Rita Bhatt MD - 11/20/2022 1:30 PM EST Telephone VISIT PROGRESS NOTE This is a virtual visit using Audio only. It required patient-provider interaction for the medical decision making as documented below. Persons Present: patient and daughter (adult) Chief Complaint/Reason: Post-op virtual visit Clinic note from 03/13/2022 copied and updated. HPI: Juan Jose Austin is a 82 [...] was readmitted on 02/26/2022 after surgery with CELSO (Cr >9) from [...] he would probably be best off recieving care home immunotherapy or other systemic therapy. We [...] complete. Rita Bhatt MD documented in this encounterSelect Medical Specialty [facility]02-05-2023 NoteReg[facility]02-04-2023 [facility]02-03-2023 [facility]02-02-2023 [facility]02-02-2023 Note [facility]02-01-2023 [facility]02-01-2023 [facility]01-31-2023 [facility] 11-12-2022 [facility]Reg[facility]01-30-2023 [facility]11-30-2022 History of Present illness Narrative* Nicholas Saenz MD - 09/12/2022 2:45 PM EST [facility] PRE-OP NOTE [...] surgery pending LABS, IMPACT documented in this encounterSelect Medical Specialty [facility]11-30-2022 History and physical note * Fatimah Salcedo [...] fevers. Neuro: No history of TIA's, stroke, HOSPICE HOME HEALTH AIDE tumor, impaired sensorium, hemiplegia, paraplegia or quadraplegia. No neurological symptoms or problems. Respiratory: No history of current cough or dyspnea, or pneumonia in the past 6 weeks. No history of respiratory/pulmonary symptoms or problems. Cardiovascular: Negative for Recent [place], Angina, Arrhythmia, CAD, Chest Pain, PVD, Valvular [...] BLOCK ABNORMAL ECG ECHO 02/27/22 scanned into [employer] Assessment/Plan Hypertensive heart disease with heart failure (HCC) -BP elevated in office 171/70, 170/72, patient reports he has not taken any of his medications yet today -denies cardiac symptoms -EF 55% on echo 02/2022 scanned into [facility] -on hydralazine, losartan, isosorbide dinitrate, and Jardiance [...] service. Requested most recent office note from palliative care physician, Dr. Mason Castaneda. Planned Anesthetic: General Instructions Given to Patient: Instructions located in the after visit summary. Patient given verbal and written preop instructions and voices comprehension and compliance. SIGNATURE: Fatimah Sacledo PA-C PATIENT NAME: Juan Jose Austin DATE: September 12, 2022 TIME: 11:37 AM documented in [facility] encounter[facility] Instructions* Patient Instructions* Fatimah Salcedo PA-C - 09/12/2022 11:21 AM EST PATIENT PREOPERATIVE INSTRUCTIONS Rita Bhatt MD has scheduled you for your procedure at this surgery center: [facility] [place] Scheduling Office: [phone] --[address] [place] [address]. Please read below carefully for your personalized [...] Procedures: - YOU MUST HAVE A RESPONSIBLE PETROLEUM SUPPLY SPECIALIST TAKE YOU HOME. A AGRISCIENCE INSTRUCTOR OR INSURANCE SALES MANAGER CANNOT BE MADE A RESPONSIBLE PETROLEUM SUPPLY SPECIALIST. - We recommend that a responsible person [...] call the Saturday before. Your surgeon s fixed income director will tell you what time to call the office. - If you have not reached the departmental fixed income director by 5 P.M., call [phone] after 5 P.M. the day before your surgery. Please be aware that emergency situations arise, which may delay or change your surgical time. If this happens, we will notify you as soon as possible and regret any inconvenience. If you already have an Advance Directive, please fax a copy to [phone] or email to for it to be [...] day. Fatimah Salcedo PA-C documented in this encounterSelect [facility] Evaluation note* Encounter Date Diagnosis Assessment Notes Treatment Notes Treatment Clinical Notes Jul, Left sided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 (ICD-10 - K51.50) [facility] Other 06-13-2022 History of Present illness Narrative* [...] minutes Jimmy Tejada PA-C documented in this encounterSelect [facility]05-31-[facility]22 History of Present illness Narrative* Rita Bhatt MD - 03/13/2022 2:10 PM EDT VIRTUAL VISIT PROGRESS NOTE This is a virtual visit using [employer] video visit. It required patient-provider interaction for [...] 1 tablet by mouth once daily. Fish Oil-[place]-3 Fatty Acids (FISH OIL) 300-1,000 mg cap [...] the date of the service which included [id number] patient care, completing clinical documentation, obtaining and/or [...] complete. Rita Bhatt MD documented in this encounterSelect [facility]-26-2022 Evaluation note* Encounter Date Diagnosis Assessment Notes Treatment Notes Treatment Clinical Notes February, Left sided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 (ICD-10 - K51.50) PATIENT TO CONTINUE ON THE MEDICATION DIRECTED. February, Malignant neoplasm of right kidney (ICD-10 - C64.1) [facility] Other 05-23-2022 History of Present illness Narrative* Soren Perea MD - 03/05/2022 1:02 PM EDT ONCOLOGY FOLLOW UP Elements in this clinic note that are critical to medical decision making have been carefully reviewed and included from Corazon Maxwell's prior clinic note dated: February 19, 2022 March 05, 2022 PCP and other physicians involved in patient's care: Yoan Sneed (PCP), iJan Kay DIAGNOSIS: Upper urothelial tract carcinoma ONCOLOGIC [...] which included preparing to see the patient, [id number] patient care, completing clinical documentation, obtaining and/or reviewing separately obtained history, performing a medically appropriate examination, counseling and educating the pat ient/family/caregiver, ordering medications, tests, or procedures, independently interpreting results (not separately reported) and communicating results to the patient/family/caregiver. documented in this encounterSelect [facility]05-09-2022 History of Present illness Narrative* Corazon Maxwell [...] weeks. Corazon Maxwell PA-C documented in this encounterSelect [facility]05-02-2022 History of Present illness Narrative* Soren Perea [...] which included preparing to see the patient, [id number] patient care, completing clinical documentation, obtaining and/or reviewing separately obtained history, performing a medically appropriate examination, counseling and educating the pat ient/family/caregiver, ordering medications, tests, or procedures, independently interpreting results (not separately reported) and communicating results to the patient/family/caregiver. documented in this encounterSelect [facility]04-25-2022 History of Present illness Narrative* Soren Perea [...] cycle of chemotherapy depending on tolerance. Soren ePrea MD I spent a total of 24 minutes on the date of the service which included preparing to see the patient, [id number] patient care, completing clinical documentation, obtaining and/or reviewing separately obtained history, performing a medically appropriate examination, counseling and educating the pat ient/family/caregiver, ordering medications, tests, or procedures, independently interpreting results (not separately reported) and communicating results to the patient/family/caregiver. documented in this encounterSelect [facility]04-11-2022 History of Present illness Narrative* Belia Martínez RN - 01/22/2022 1:27 PM EDT . documented in this encounterSelect [facility]04-04-2022 History of Present illness Narrative* Irma Ariza RN - 01/15/2022 1:38 PM EDT . documented in this encounterSelect [facility]04-04-2022 History of Present illness Narrative* Corazon Maxwell [...] 8. Corazon Maxwell PA-C documented in this encounterSelect Medical [facility]03-28-2022 History of Present illness Narrative* Soren Perea [...] Blood work today shows platelet count of [id number]. I will hold treatment today and continue with cycle 3 day 1 in a week. The plan is to repeat endoscopy evaluation after 3-6 cycles of chemotherapy based on tolerance. Soren Perea MD I spent a total of 20 minutes on the date of the service which included preparing to see the patient, [id number] patient care, completing clinical documentation, obtaining and/or reviewing separately obtained history, performing a medically appropriate examination, counseling and educating the pat ient/family/caregiver, ordering medications, tests, or procedures, independently interpreting results (not separately reported) and communicating results to the patient/family/caregiver. documented in this encounterSelect Medical [facility]09-25-2020 History of Present illness Narrative* ArgentiLinda CT [...] 2020 TIME: 11:15 AM documented in this encounterSelect Medical [facility]hillEvaluation + Plan note Future Appointments Appointment Date:12/18/2022 01:00:00 PM Scheduled Provider:Jian RODRIGUEZ MD Location:[facility] Appointment Type:URO Procedure 15 min [facility] Evaluation note* Diagnosis Malignant neoplasm of ureter, unspecified laterality (HCC)- Primary documented in this encounter [facility] note* Diagnosis Malignant neoplasm of ureter, unspecified laterality (HCC)- Primary documented in this encounter [facility] note* Diagnosis Malignant neoplasm of ureter, unspecified laterality (HCC)- Primary documented in this encounter [facility] note* Diagnosis Malignant neoplasm of ureter, unspecified laterality (HCC)- Primary documented in this encounter [facility] note* Diagnosis Malignant neoplasm of ureter, unspecified laterality (HCC)- Primary documented in this encounter [facility] note* Diagnosis Malignant neoplasm of ureter, unspecified laterality (HCC)- Primary documented in this encounter [facility] note* Diagnosis Malignant neoplasm of ureter, unspecified laterality (HCC)- Primary documented in this encounter [facility] note* Diagnosis Malignant neoplasm of ureter, unspecified laterality (HCC)- Primary documented in this encounter [facility] note* Diagnosis Urothelial carcinoma (HCC)- Primary Other malignant neoplasm without specification of site Urothelial carcinoma (HCC) Other malignant neoplasm without specification of site documented in this encounter [facility] note* Diagnosis Urothelial carcinoma (HCC)- Primary Other malignant neoplasm without specification of site Urothelial carcinoma (HCC) Other malignant neoplasm without specification of site documented in this encounter [facility] note* Diagnosis 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, unspecified laterality (HCC)- Primary Acute cystitis without hematuria Acute cystitis documented in this encounter [facility] note* Diagnosis Urothelial carcinoma (HCC)- Primary Other malignant neoplasm without specification of site Urothelial carcinoma (HCC) Other malignant neoplasm without specification of site documented in this encounter [facility] note* Diagnosis Pre-op evaluation- Primary Preoperative examination, unspecified Hypertensive heart disease with heart failure (HCC) 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 Gastro-esophageal reflux disease without esophagitis Esophageal reflux Ulcerative pancolitis (HCC) [facility]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 Stage 3 chronic kidney disease, unspecified whether stage 3a or 3b CKD (HCC) 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, 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, except renal pelvis (HCC) Malignant neoplasm of kidney, except pelvis Malignant neoplasm of urinary bladder, unspecified site (HCC) [facility]* Diagnosis Urothelial carcinoma (HCC)- Primary Other malignant neoplasm without specification of site Malignant neoplasm of right kidney, except renal pelvis (HCC) Malignant neoplasm of kidney, except pelvis Malignant neoplasm of urinary bladder, unspecified site (HCC) [facility]* Diagnosis Screening for genitourinary condition Screening for other and unspecified genitourinary condition Malignant neoplasm of right kidney, except renal pelvis (HCC) Malignant neoplasm of kidney, except pelvis Malignant neoplasm of urinary bladder, unspecified site (HCC) [facility]* Diagnosis 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, unspecified laterality (HCC)- Primary documented in this encounter [facility] noteNo [employer] Other Evaluation note* Diagnosis CELSO (acute kidney injury) (HCC)- Primary Acute kidney failure, unspecified documented in this encounter [facility] note* Diagnosis 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 Malignant neoplasm of other specified sites of bladder documented in this encounter [facility] note* Diagnosis 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 Malignant neoplasm of other specified sites of bladder Malignant neoplasm of right kidney, except renal pelvis (HCC) Malignant neoplasm of kidney, except pelvis Malignant neoplasm of ureter, unspecified laterality (HCC) [facility]* Diagnosis 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 Malignant neoplasm of other specified sites of bladder Malignant neoplasm of ureter, unspecified laterality (HCC) documented [facility]* Diagnosis 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 Malignant neoplasm of other specified sites of bladder [facility]* Diagnosis 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 Malignant neoplasm of other specified sites of bladder Malignant neoplasm of right kidney, except renal pelvis (HCC) Malignant neoplasm of kidney, except pelvis Malignant neoplasm of ureter, unspecified laterality (HCC) [facility]* Diagnosis Malignant neoplasm of overlapping sites [...] and signs [facility] Diagnosis 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 Malignant neoplasm of other specified sites of bladder [facility]* Diagnosis 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 Malignant neoplasm of other specified sites of bladder Malignant neoplasm of right kidney, except renal pelvis (HCC) Malignant neoplasm of kidney, except pelvis Malignant neoplasm of ureter, unspecified laterality (HCC) documented [facility]* Diagnosis Malignant neoplasm of overlapping sites [...] unspecified laterality (HCC) documented in this encounter [facility]* Diagnosis 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 Malignant neoplasm of other specified sites of bladder Malaise and fatigue Other malaise and fatigue documented [facility]* Diagnosis 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 Malignant neoplasm of other specified sites of bladder Malignant neoplasm of right kidney, except renal pelvis (HCC) Malignant neoplasm of kidney, except pelvis Malignant neoplasm of ureter, unspecified laterality (HCC) [facility]* Diagnosis 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 Malignant neoplasm of other specified sites of bladder [facility]* Diagnosis Urothelial cancer (HCC)- Primary Malignant neoplasm of other specified sites of urinary organs documented [facility]* Diagnosis 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 Malignant neoplasm of other specified sites of bladder Malignant neoplasm of ureter, unspecified laterality (HCC) Malaise and fatigue Other malaise and fatigue documented in this encounter [facility]* Diagnosis 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 Malignant neoplasm of other specified sites of bladder Malignant neoplasm of right kidney, except renal pelvis (HCC) Malignant neoplasm of kidney, except pelvis Malignant neoplasm of ureter, unspecified laterality (HCC) documented [facility] this encounter [facility] Narrative - Reported* Type Description Date Medical History colitis Medical History hyperlipidemia Medical History HTN Medical History KIDNEY CANCER Surgical History KIDNEY REMOVED [facility] Other History general Narrative - Reported* Type Description Date Medical History colitis Medical History hyperlipidemia Medical History HTN Medical History KIDNEY CANCER Surgical History KIDNEY REMOVED Hospitalization History No Hospitalization histo ry information [facility] Other Hospital course Narrative No data available for this section [facility] [employer] Progress note No data available for this section [facility] [employer] Reason for referral (narrative)* Outpatient Procedure (Routine) - Pending Review Specialty Diagnoses / Procedures Referred By Contac t Referred To Contact [facility] [place] Diagnoses 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, unspecified laterality (HCC) Procedures ECG COMPLETE ECG ROUTINE ECG W/LEAST 12 LDS W/I&R Rita Bhatt MD [id number] [place] [id number] [facility] [place] [address] Referral ID Status Reason Start Date Expiration Date Visits Requested Visits Authorized [id number] Pending Review Auto-Generat ed Referral 03/13/2022 03/13/2023 1 1 [facility] (narrative[facility] Outpatient Procedure (Routine) - Closed Specialty Diagnoses / Procedures Referred By Contac t Referred To Contact [facility] N[facility] [place] Diagnoses Pre-op evaluation Procedures ECG COMPLETE ECG ROUTINE ECG W/LEAST 12 LDS W/I&R Fatimah Salcedo PA-C [address] [place] [address] [place] [address] Referral ID Status Reason Start Date Expiration Date V isits Requested Visits Authorized [id number] Closed Auto-Generate d Referral 09/12/2022 09/12/2023 1 1 [facility] Summary Purpose Family History No Family History Records FoundNo Family History Records FoundNo Family History Records FoundNo Family History Records FoundNo Family History Records FoundNo Family History Records FoundNo Family History Records Found Advance Directives No Advanced Directives Records FoundDocuments on File Type Date Recorded Patient Riveter Expl anation Advance Directive(s) 11/01/2021 2:32 PM Advance Directive(s) 10/28/2019 10:37 AM Advance Directive(s) 09/30/2019 10:07 AM Advance Directive(s) 09/15/2019 2:16 PM Advance Directive(s) 08/11/2019 11:16 AM Advance Directive(s) 08/11/2019 11:21 AM Documents on File Type Date Recorded Patient Riveter Expl anation Advance Directive(s) 11/01/2021 2:32 PM Advance Directive(s) 10/28/2019 10:37 AM Advance Directive(s) 09/30/2019 10:07 AM Advance Directive(s) 09/15/2019 2:16 PM Advance Directive(s) 08/11/2019 11:16 AM Advance Directive(s) 08/11/2019 11:21 AM Documents on File Type Date Recorded Patient Riveter Expl anation Advance Directive(s) 03/14/2022 4:48 PM Advance Directive(s) 11/01/2021 2:32 PM Advance Directive(s) 10/28/2019 10:37 AM Advance Directive(s) 09/30/2019 10:07 AM Advance Directive(s) 09/15/2019 2:16 PM Advance Directive(s) 08/11/2019 11:16 AM Advance Directive(s) 08/11/2019 11:21 AM Documents on File Type Date Recorded Patient Riveter Expl anation Advance Directive(s) 03/14/2022 4:48 PM Advance Directive(s) 11/01/2021 2:32 PM Advance Directive(s) 10/28/2019 10:37 AM Advance Directive(s) 09/30/2019 10:07 AM Advance Directive(s) 09/15/2019 2:16 PM Advance Directive(s) 08/11/2019 11:16 AM Advance Directive(s) 08/11/2019 11:21 AM Documents on File Type Date Recorded Patient Riveter Expl anation Advance Directive(s) 05/04/2022 1:37 PM Advance Directive(s) 03/14/2022 4:48 PM Advance Directive(s) 11/01/2021 2:32 PM Advance Directive(s) 10/28/2019 10:37 AM Advance Directive(s) 09/30/2019 10:07 AM Advance Directive(s) 09/15/2019 2:16 PM Advance Directive(s) 08/11/2019 11:16 AM Advance Directive(s) 08/11/2019 11:21 AM Documents on File Type Date Recorded Patient Riveter Expl anation Advance Directive(s) 08/11/2019 11:21 AM Documents on File Type Date Recorded Patient Riveter Expl anation Advance Directive(s) 08/11/2019 11:21 AM [...] COMPUTED TOMOGRAPHY THORAX W/CONTRAST Caesar Prado MD [address] [place] [address] [place] [address] Ct Imaging Referral ID Status Reason Start Date Expiration Date Visits Requested Visits Authorized [id number] Authorized Auto-Generat ed Referral 05/16/2023 06/14/2024 1 1 Specialty Diagnoses / Procedures Referred By Contac t Referred To Contact CT IMAGING Diagnoses Malignant 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) Procedures CT ABD/PEL W IVCON CT ABD & PELVIS W/CONTRAST Caesar Prado MD [address] [place] [address] [place] [address] Ct Imaging Referral ID Status Reason Start Date Expiration Date Visits Requested Visits Authorized [id number] Authorized Auto-Generat ed Referral 05/16/2023 06/14/2024 1 1 Additional Source Comments (unrecognized sect ion and content) No Status Records FoundNo Status Records FoundNo Status Records FoundNo Status Records FoundNo Status Records FoundNo Status Records FoundNo Status Records Found INFORMATION SOURCE (unrecogn ized section and content) DATE CREATED AUTHOR 04/30/2018 [facility] DATE CREATED AUTHOR AUTHOR'S ORGANIZ ATION 03/06/2019 [facility] DATE CREATED AUTHOR AUTHOR'S ORGANIZ ATION 03/24/2023 [facility] DATE CREATED AUTHOR AUTHOR'S ORGANIZ ATION 04/27/2023 [facility] DATE CREATED AUTHOR AUTHOR'S ORGANIZ ATION 08/24/2023 [facility] DATE CREATED AUTHOR AUTHOR'S ORGANIZ ATION 11/02/2023 [facility] DATE CREATED AUTHOR AUTHOR'S ORGANIZ ATION 11/03/2023 [facility] Source Comments (unrecognize d section and content) In the event this informatio n is protected by the Federal Confidentiality of Alcohol and Drug Abuse Patient Records regulations: The Federal rules restrict any use of the information to criminally investigate or prosecute any alcohol or drug abuse patient.[facility] the event this information is protected by the Federal Confidentiality of Alcohol and Drug Abuse Patient Records regulations: The Federal rules restrict any use of the information to criminally investigate or prosecute any alcohol or drug abuse patient.[facility] the event this information is protected by the Federal Confidentiality of Alcohol and Drug Abuse Patient Records regulations: The Federal rules restrict any use of the information to criminally investigate or prosecute any alcohol or drug abuse patient.[facility] the event this information is protected by the Federal Confidentiality of Alcohol and Drug Abuse Patient Records regulations: The Federal rules restrict any use of the information to criminally investigate or prosecute any alcohol or drug abuse patient.[facility] the event this information is protected by the Federal Confidentiality of Alcohol and Drug Abuse Patient Records regulations: The Federal rules restrict any use of the information to criminally investigate or prosecute any alcohol or drug abuse patient.[facility] the event this information is protected by the Federal Confidentiality of Alcohol and Drug Abuse Patient Records regulations: The Federal rules restrict any use of the information to criminally investigate or prosecute any alcohol or drug abuse patient.[facility] the event this information is protected by the Federal Confidentiality of Alcohol and Drug Abuse Patient Records regulations: The Federal rules restrict any use of the information to criminally investigate or prosecute any alcohol or drug abuse patient.[facility] the event this information is protected by the Federal Confidentiality of Alcohol and Drug Abuse Patient Records regulations: The Federal rules restrict any use of the information to criminally investigate or prosecute any alcohol or drug abuse patient.[facility]hillIn the event this information is protected by the Federal Confidentiality of Alcohol and Drug Abuse Patient Records regulations: The Federal rules restrict any use of the information to criminally investigate or prosecute any alcohol or drug abuse patient.[facility]hillIn the event this information is protected by the Federal Confidentiality of Alcohol and Drug Abuse Patient Records regulations: The Federal rules restrict any use of the information to criminally investigate or prosecute any alcohol or drug abuse patient.[facility]hillIn the event this information is protected by the Federal Confidentiality of Alcohol and Drug Abuse Patient Records regulations: The Federal rules restrict any use of the information to criminally investigate or prosecute any alcohol or drug abuse patient.[facility]hillIn the event this information is protected by the Federal Confidentiality of Alcohol and Drug Abuse Patient Records regulations: The Federal rules restrict any use of the information to criminally investigate or prosecute any alcohol or drug abuse patient.[facility]hillIn the event this information is protected by the Federal Confidentiality of Alcohol and Drug Abuse Patient Records regulations: The Federal rules restrict any use of the information to criminally investigate or prosecute any alcohol or drug abuse patient.[facility]hillIn the event this information is protected by the Federal Confidentiality of Alcohol and Drug Abuse Patient Records regulations: The Federal rules restrict any use of the information to criminally investigate or prosecute any alcohol or drug abuse patient.[facility]hillIn the event this information is protected by the Federal Confidentiality of Alcohol and Drug Abuse Patient Records regulations: The Federal rules restrict any use of the information to criminally investigate or prosecute any alcohol or drug abuse patient.[facility]hillIn the event this information is protected by the Federal Confidentiality of Alcohol and Drug Abuse Patient Records regulations: The Federal rules restrict any use of the information to criminally investigate or prosecute any alcohol or drug abuse patient.[facility]hillIn the event this information is protected by the Federal Confidentiality of Alcohol and Drug Abuse Patient Records regulations: The Federal rules restrict any use of the information to criminally investigate or prosecute any alcohol or drug abuse patient.[facility]hillIn the event this information is protected by the Federal Confidentiality of Alcohol and Drug Abuse Patient Records regulations: The Federal rules restrict any use of the information to criminally investigate or prosecute any alcohol or drug abuse patient.[facility]hillIn the event this information is protected by the Federal Confidentiality of Alcohol and Drug Abuse Patient Records regulations: The Federal rules restrict any use of the information to criminally investigate or prosecute any alcohol or drug abuse patient.[facility]hillIn the event this information is protected by the Federal Confidentiality of Alcohol and Drug Abuse Patient Records regulations: The Federal rules restrict any use of the information to criminally investigate or prosecute any alcohol or drug abuse patient.[facility]hillIn the event this information is protected by the Federal Confidentiality of Alcohol and Drug Abuse Patient Records regulations: The Federal rules restrict any use of the information to criminally investigate or prosecute any alcohol or drug abuse patient.[facility]hillIn the event this information is protected by the Federal Confidentiality of Alcohol and Drug Abuse Patient Records regulations: The Federal rules restrict any use of the information to criminally investigate or prosecute any alcohol or drug abuse patient.[facility]hillIn the event this information is protected by the Federal Confidentiality of Alcohol and Drug Abuse Patient Records regulations: The Federal rules restrict any use of the information to criminally investigate or prosecute any alcohol or drug abuse patient.[facility]hillIn the event this information is protected by the Federal Confidentiality of Alcohol and Drug Abuse Patient Records regulations: The Federal rules restrict any use of the information to criminally investigate or prosecute any alcohol or drug abuse patient.[facility]hillIn the event this information is protected by the Federal Confidentiality of Alcohol and Drug Abuse Patient Records regulations: The Federal rules restrict any use of the information to criminally investigate or prosecute any alcohol or drug abuse patient.[facility]hillIn the event this information is protected by the Federal Confidentiality of Alcohol and Drug Abuse Patient Records regulations: The Federal rules restrict any use of the information to criminally investigate or prosecute any alcohol or drug abuse patient.[facility]hillIn the event this information is protected by the Federal Confidentiality of Alcohol and Drug Abuse Patient Records regulations: The Federal rules restrict any use of the information to criminally investigate or prosecute any alcohol or drug abuse patient.[facility]hillIn the event this information is protected by the Federal Confidentiality of Alcohol and Drug Abuse Patient Records regulations: The Federal rules restrict any use of the information to criminally investigate or prosecute any alcohol or drug abuse patient.[facility]hillIn the event this information is protected by the Federal Confidentiality of Alcohol and Drug Abuse Patient Records regulations: The Federal rules restrict any use of the information to criminally investigate or prosecute any alcohol or drug abuse patient.[facility]hillIn the event this information is protected by the Federal Confidentiality of Alcohol and Drug Abuse Patient Records regulations: The Federal rules restrict any use of the information to criminally investigate or prosecute any alcohol or drug abuse patient.[facility]hillIn the event this information is protected by the Federal Confidentiality of Alcohol and Drug Abuse Patient Records regulations: The Federal rules restrict any use of the information to criminally investigate or prosecute any alcohol or drug abuse patient.[facility]hillIn the event this information is protected by the Federal Confidentiality of Alcohol and Drug Abuse Patient Records regulations: The Federal rules restrict any use of the information to criminally investigate or prosecute any alcohol or drug abuse patient.[facility]hillIn the event this information is protected by the Federal Confidentiality of Alcohol and Drug Abuse Patient Records regulations: The Federal rules restrict any use of the information to criminally investigate or prosecute any alcohol or drug abuse patient.[facility]hillIn the event this information is protected by the Federal Confidentiality of Alcohol and Drug Abuse Patient Records regulations: The Federal rules restrict any use of the information to criminally investigate or prosecute any alcohol or drug abuse patient.[facility]hillIn the event this information is protected by the Federal Confidentiality of Alcohol and Drug Abuse Patient Records regulations: The Federal rules restrict any use of the information to criminally investigate or prosecute any alcohol or drug abuse patient.[facility]hillIn the event this information is protected by the Federal Confidentiality of Alcohol and Drug Abuse Patient Records regulations: The Federal rules restrict any use of the information to criminally investigate or prosecute any alcohol or drug abuse patient.[facility]hillIn the event this information is protected by the Federal Confidentiality of Alcohol and Drug Abuse Patient Records regulations: The Federal rules restrict any use of the information to criminally investigate or prosecute any alcohol or drug abuse patient.[facility]hillIn the event this information is protected by the Federal Confidentiality of Alcohol and Drug Abuse Patient Records regulations: The Federal rules restrict any use of the information to criminally investigate or prosecute any alcohol or drug abuse patient.[facility]hillIn the event this information is protected by the Federal Confidentiality of Alcohol and Drug Abuse Patient Records regulations: The Federal rules restrict any use of the information to criminally investigate or prosecute any alcohol or drug abuse patient.[facility]hillIn the event this information is protected by the Federal Confidentiality of Alcohol and Drug Abuse Patient Records regulations: The Federal rules restrict any use of the information to criminally investigate or prosecute any alcohol or drug abuse patient.[facility]hillIn the event this information is protected by the Federal Confidentiality of Alcohol and Drug Abuse Patient Records regulations: The Federal rules restrict any use of the information to criminally investigate or prosecute any alcohol or drug abuse patient.[facility]hillIn the event this information is protected by the Federal Confidentiality of Alcohol and Drug Abuse Patient Records regulations: The Federal rules restrict any use of the information to criminally investigate or prosecute any alcohol or drug abuse patient.[facility]hillIn the event this information is protected by the Federal Confidentiality of Alcohol and Drug Abuse Patient Records regulations: The Federal rules restrict any use of the information to criminally investigate or prosecute any alcohol or drug abuse patient.[facility]hillIn the event this information is protected by the Federal Confidentiality of Alcohol and Drug Abuse Patient Records regulations: The Federal rules restrict any use of the information to criminally investigate or prosecute any alcohol or drug abuse patient.[facility]hillIn the event this information is protected by the Federal Confidentiality of Alcohol and Drug Abuse Patient Records regulations: The Federal rules restrict any use of the information to criminally investigate or prosecute any alcohol or drug abuse patient.[facility]hillIn the event this information is protected by the Federal Confidentiality of Alcohol and Drug Abuse Patient Records regulations: The Federal rules restrict any use of the information to criminally investigate or prosecute any alcohol or drug abuse patient.[facility]hillIn the event this information is protected by the Federal Confidentiality of Alcohol and Drug Abuse Patient Records regulations: The Federal rules restrict any use of the information to criminally investigate or prosecute any alcohol or drug abuse patient.[facility] Reason for Visit (unrecogniz ed section and content) Reason Comments malignant neoplasm of ureter follow up t reatment Reason Comments ureter cancer Specialty Diagnoses / Procedures Referred By Contac t Referred To Contact Diagnoses Malignant neoplasm of ureter (HCC) Soren Perea MD [address] [place] [address] [place] [address] [facility] [address] [place] [address] Referral ID Status Reason Start Date Expiration Date V isits Requested Visits Authorized [id number] Authorized 11/14/2021 02/12/2022 99 99 Reason Comments [...] sites of bladder (HCC) Caesar Prado MD [address] [place] [address] [place] [address] [facility] [address] [place] [address] Referral ID Status Reason Start Date Expiration Date V isits Requested Visits Authorized [id number] Authorized 12/24/2022 03/24/2023 99 99 Reason Comments [...] Care Teams (unrecognized sec tion and content) Generator Rebuilder Relationship Specialty Start Date End Date Yoan Sneed MD [address] [place] [address] PCP - General Family Practice 07/30/19 Jian Rodriguez MD [address] [place] [address] Physician Urology 10/28/19 Lauren Mckeon, RN [address] [facility] [place] [address] Specialty C Programmer Hematology/Oncology 11/21/21 Soren Perea MD [address] [facility] [address] Physician Hematology/Oncology 11/21/21 Corazon Maxwell PA-C [address] [facility] [place] [address] Physician Hog Stomach Preparer Hematology/Oncology 11/21/21 Generator Rebuilder Relationship Specialty Start Date End Date Yoan Sened MD [address] [place] [address] PCP - General Family Practice 07/30/19 Jian Rodriguez MD [address] [place] [address] Physician Urology 10/28/19 Lauren Mckeon RN [address] [facility] [place] [address] Specialty C Programmer Hematology/Oncology 11/21/21 Soren Perea MD [address] [facility] [place] [address] Physician Hematology/Oncology 11/21/21 Corazon Maxwell PA-C [address] [facility] [place] [address] Physician Hog Stomach Preparer Hematology/Oncology 11/21/21 Generator Rebuilder Relationship Specialty Start Date End Date Yoan Sneed MD [address] [place] [address] PCP - General Family Practice 07/30/19 Jian Rodriguez MD [address] [place] [address] Physician Urology 10/28/19 Lauren Mckeon RN [address] [facility] [place] [address] Specialty C Programmer Hematology/Oncology 11/21/21 Soren Perea MD [address] [facility] [place] [address] Physician Hematology/Oncology 11/21/21 Corazon Maxwell, PAEnocC [address] [place] [address] Physician Hog Stomach Preparer Hematology/Oncology 11/21/21 Generator Rebuilder Relationship Specialty Start Date End Date Yoan Sneed MD [address] [place] [address] PCP - General Family Practice 07/30/19 Jian Rodriguez MD [address] [place] [address] Physician Urology 10/28/19 Lauren Mckeon, RN [address] [facility] [place] [address] Specialty C Programmer Hematology/Oncology 11/21/21 Soren Perea MD [address] [facility] [place] [address] Physician Hematology/Oncology 11/21/21 Corazon Maxwell, PAEnocC [address] [facility] [place] [address] Physician Hog Stomach Preparer Hematology/Oncology 11/21/21 Generator Rebuilder Relationship Specialty Start Date End Date Yoan Sneed MD [address] [place] [address] PCP - General Family Practice 07/30/19 Jian Rodriguez MD [address] [place] [address] Physician Urology 10/28/19 Lauren Mckeon, RN [address] [facility] [place] [address] Specialty C Programmer Hematology/Oncology 11/21/21 Soren Perea MD [address] [facility] [place] [address] Physician Hematology/Oncology 11/21/21 Corazon Maxwell PA-C [address] [place] [address] Physician Hog Stomach Preparer Hematology/Oncology 11/21/21 Generator Rebuilder Relationship Specialty Start Date End Date Yoan Sneed MD [address] [place] [address] PCP - General Family Practice 07/30/19 Jian Rodriguez MD [address] [place] [address] Physician Urology 10/28/19 Lauren Mckeon RN [address] [facility] [place] [address] Specialty C Programmer Hematology/Oncology 11/21/21 Soren Perea MD [address] [facility] [place] [address] Physician Hematology/Oncology 11/21/21 Corazon Maxwell PA-C [address] [facility] [place] [address] Physician Hog Stomach Preparer Hematology/Oncology 11/21/21 Generator Rebuilder Relationship Specialty Start Date End Date Yoan Sneed MD [address] [place] [address] PCP - General Family Practice 07/30/19 Jian Rodriguez MD [address] [place] [address] Physician Urology 10/28/19 Lauren Mckeon, RN [address] [place] [address] Specialty C Programmer Hematology/Oncology 11/21/21 Soren Perea MD [address] [facility] [place] [address] Physician Hematology/Oncology 11/21/21 Corazon Maxwell PA-C [address] [place] [address] Physician Hog Stomach Preparer Hematology/Oncology 11/21/21 Generator Rebuilder Relationship Specialty Start Date End Date Yoan Sneed MD [address] [place] [address] PCP - General Family Practice 07/30/19 Jian Rodriguez MD [address] [place] [address] Physician Urology 10/28/19 Lauren Mckeon, RN [address] [place] [address] Specialty C Programmer Hematology/Oncology 11/21/21 Soren Perea MD [address] [place] [address] Physician Hematology/Oncology 11/21/21 Corazon Maxwell PA-C [address] [place] [address] Physician Hog Stomach Preparer Hematology/Oncology 11/21/21 Generator Rebuilder Relationship Specialty Start Date End Date Yoan Sneed MD [address] [place] [address] PCP - General Family Practice 07/30/19 Jian Rodriguez MD [address] [place] [address] Physician Urology 10/28/19 Lauren Mckeon, RN [address] [place] [address] Specialty C Programmer Hematology/Oncology 11/21/21 Soren Perea MD [address] [place] [address] Physician Hematology/Oncology 11/21/21 Corazon Maxwell PA-C [address] [place] [address] Physician Hog Stomach Preparer Hematology/Oncology 11/21/21 Generator Rebuilder Relationship Specialty Start Date End Date Yoan Sneed MD [address] [place] [address] PCP - General Family Practice 07/30/19 Jian Rodriguez MD [address] [place] [address] Physician Urology 10/28/19 Lauren Mckeon, RN [address] [facility] [place] [address] Specialty C Programmer Hematology/Oncology 11/21/21 Soren Perea MD [address] [facility] [place] [address] Physician Hematology/Oncology 11/21/21 Corazon Maxwell PA-C [address] [facility] [place] [address] Physician Hog Stomach Preparer Hematology/Oncology 11/21/21 Generator Rebuilder Relationship Specialty Start Date End Date Yoan Sneed MD [address] [place] [address] PCP - General Family Practice 07/30/19 Jian Rodriguez MD [address] [place] [address] Physician Urology 10/28/19 Lauren Mckeon, RN [address] [facility] [place] [address] Specialty C Programmer Hematology/Oncology 11/21/21 Soren Perea MD [address] [facility] [place] [address] Physician Hematology/Oncology 11/21/21 Corazon Maxwell PA-C [address] [facility] [place] [address] Physician Hog Stomach Preparer Hematology/Oncology 11/21/21 Generator Rebuilder Relationship Specialty Start Date End Date Yoan Sneed MD [address] [place] [address] PCP - General Family Medicine 07/30/19 Jian Rodriguez MD [address] [place] [address] Physician Urology 10/28/19 Soren Perea MD [address] [place] [address] Physician Hematology/Oncology 11/21/21 Casey Castaneda MD [address] [facility] [address] [place] [address] Cardiology 09/12/22 Generator Rebuilder Relationship Specialty Start Date End Date Yoan Sneed MD [address] [place] [address] PCP - General Family Medicine 07/30/19 Jian Rodriguez MD [address] [place] [address] Physician Urology 10/28/19 Soren Perea MD [address] [facility] [address] [place], [facility] Physician Hematology/Oncology 11/21/21 Casey Castaneda MD [address] [facility] 1 [place] [address] Cardiology 09/12/22 Generator Rebuilder Relationship Specialty Start Date End Date Yoan Sneed MD [address] [place] [address] PCP - General Family Medicine 07/30/19 Jian Rodriguez MD [address] [place] [address] Physician Urology 10/28/19 Soren Perea MD [address] [facility] [address] Physician Hematology/Oncology 11/21/21 Casey Castaneda MD [address] [facility] 1 [place] [address] Cardiology 09/12/22 Generator Rebuilder Relationship Specialty Start Date End Date Yoan Sneed MD [address] [place] [address] PCP - General Family Medicine 07/30/19 Jian Rodriguez MD [address] [place] [address] Physician Urology 10/28/19 Soren Perea MD [address] [facility] [address] Physician Hematology/Oncology 11/21/21 Casey Castaneda MD [address] [facility] 1 [place] [address] Cardiology 09/12/22 Generator Rebuilder Relationship Specialty Start Date End Date Yoan Sneed MD [address] [place] [address] PCP - General Family Medicine 07/30/19 Jian Rodriguez MD [address] [place] [address] Physician Urology 10/28/19 Soren Perea MD [address] [facility] [address] Physician Hematology/Oncology 11/21/21 Casey Castaneda MD [address] [facility] 1 [place] [address] Cardiology 09/12/22 Generator Rebuilder Relationship Specialty Start Date End Date Yoan Sneed MD [address] [place] [address] PCP - General Family Medicine 07/30/19 Jian Rodriguez MD [address] [place] [address] Physician Urology 10/28/19 Soren Perea MD [address] [facility] [address] Physician Hematology/Oncology 11/21/21 Casey Castaneda MD [address] [place] [address] Cardiology 09/12/22 Generator Rebuilder Relationship Specialty Start Date End Date Yoan Sneed MD PCP - General Family Medicine 07/30/19 Jian Rodriguez MD [address] [place] [address] Physician Urology 10/28/19 Casey Castaneda MD [address] [facility] 1 [place] [address] Cardiology 09/12/22 Caesar Prado MD [address] [facility] [place] [address] Physician Hematology/Oncology 12/26/22 Margot So, SUNIL [address] [place] [address] Specialty C Programmer Hematology/Oncology 12/26/22 Wayne Chavez APRN.COMPLIANCE PROJECT MANAGER [address] [place] [address] Nurse Practitioner Hematology/Oncology 12/26/22 Generator Rebuilder Relationship Specialty Start Date End Date Yoan Sneed MD PCP - General Family Medicine 07/30/19 Jian Rodriguez MD [address] [place] [address] Physician Urology 10/28/19 Casey Castaneda MD [address] [facility] 1 [place] [address] Cardiology 09/12/22 Caesar Prado MD [address] [facility] [place] [address] Physician Hematology/Oncology 12/26/22 Margot So, RN [address] [facility] [place] [address] Specialty C Programmer Hematology/Oncology 12/26/22 Wayne Chavez, BYPRODUCTS MAKER.COMPLIANCE PROJECT MANAGER [address] [facility] [place] [address] Nurse Practitioner Hematology/Oncology 12/26/22 Generator Rebuilder Relationship Specialty Start Date End Date Yoan Sneed MD PCP - General Family Medicine 07/30/19 Jian Rodriguez MD [address] [place] [address] Physician Urology 10/28/19 Casey Castaneda MD [address] [facility] 1 [place] [address] Cardiology 09/12/22 Caesar Prado MD [address] [facility], [place] [address] Physician Hematology/Oncology 12/26/22 Margot So, RN [address] [facility], [place] [address] Specialty C Programmer Hematology/Oncology 12/26/22 Wayne Chavez, BYPRODUCTS MAKER.COMPLIANCE PROJECT MANAGER [address] [facility] [place] [address] Nurse Practitioner Hematology/Oncology 12/26/22 Generator Rebuilder Relationship Specialty Start Date End Date Yoan Sneed MD PCP - General Family Medicine 07/30/19 Jian Rodriguez MD [address] [place] [address] Physician Urology 10/28/19 Casey Castaneda MD [address] [place] [address] Cardiology 09/12/22 Caesar Prado MD [address] [facility] [place] [address] Physician Hematology/Oncology 12/26/22 Margot So, SUNIL [address] [facility] [place] [address] Specialty C Programmer Hematology/Oncology 12/26/22 Wayne Chavez, BYPRODUCTS MAKER.COMPLIANCE PROJECT MANAGER [address] [facility] [place] [place] [address] Nurse Practitioner Hematology/Oncology 12/26/22 Generator Rebuilder Relationship Specialty Start Date End Date Yoan Sneed MD PCP - General Family Medicine 07/30/19 Jian Rodriguez MD [address] [place] [address] Physician Urology 10/28/19 Casey Castaneda MD [address] [place] [address] Cardiology 09/12/22 Caesar Prado MD [address] [place] [address] Physician Hematology/Oncology 12/26/22 Margot So, RN [address] [place] [address] Specialty C Programmer Hematology/Oncology 12/26/22 Wayne Chavez, BYPRODUCTS MAKER.COMPLIANCE PROJECT MANAGER [address] [place] [address] Nurse Practitioner Hematology/Oncology 12/26/22 Generator Rebuilder Relationship Specialty Start Date End Date Yoan Sneed MD PCP - General Family Medicine 07/30/19 Jian Rodriguez MD [address] [place] [address] Physician Urology 10/28/19 Casey Castaneda MD [address] [facility] [address] [place] [address] Cardiology 09/12/22 Caesar Prado MD [address] [place] [address] Physician Hematology/Oncology 12/26/22 Margot So, RN [address] [place] [address] Specialty C Programmer Hematology/Oncology 12/26/22 Wayne Chavez, BYPRODUCTS MAKER.COMPLIANCE PROJECT MANAGER [address] [place] [address] Nurse Practitioner Hematology/Oncology 12/26/22 Generator Rebuilder Relationship Specialty Start Date End Date Yoan Sneed MD PCP - General Family Medicine 07/30/19 Jian Rodriguez MD Physician Urology 10/28/19 Casey Castaneda MD [address] [facility] [address] [place] [phone] Cardiology 09/12/22 Caesar Prado MD [address] [facility], [place] [address] Physician Hematology/Oncology 12/26/22 Margot So, RN [address] [facility], [place] [address] Specialty C Programmer Hematology/Oncology 12/26/22 Wayne Chavez, BYPRODUCTS MAKER.COMPLIANCE PROJECT MANAGER [address] [facility] [place] [address] Nurse Practitioner Hematology/Oncology 12/26/22 Generator Rebuilder Relationship Specialty Start Date End Date Yoan Sneed MD PCP - General Family Medicine 07/30/19 Jian Rodriguez MD Physician Urology 10/28/19 Casey Castaneda MD [address] [facility] [address] [place] [address] Cardiology 09/12/22 Caesar Prado MD [address] [facility] [place] [address] Physician Hematology/Oncology 12/26/22 Margot So, RN [address] [facility], [place] [address] Specialty C Programmer Hematology/Oncology 12/26/22 Wayne Chavez, BYPRODUCTS MAKER.COMPLIANCE PROJECT MANAGER [address] [facility] [place] [address] Nurse Practitioner Hematology/Oncology 12/26/22 Generator Rebuilder Relationship Specialty Start Date End Date Yoan Sneed MD PCP - General Family Medicine 07/30/19 Jian Rodriugez MD Physician Urology 10/28/19 Casey Castaneda MD [address] [place] [address] Cardiology 09/12/22 Caesar Prado MD [address] [facility] [place] [address] Physician Hematology/Oncology 12/26/22 Margot So, SUNLI [address] [facility] [place] [address] Specialty C Programmer Hematology/Oncology 12/26/22 Wayne Chavez APRN.COMPLIANCE PROJECT MANAGER [address] [facility] [place] [address] Nurse Practitioner Hematology/Oncology 12/26/22 Generator Rebuilder Relationship Specialty Start Date End Date Yoan Sneed MD PCP - General Family Medicine 07/30/19 Jian Rodriguez MD Physician Urology 10/28/19 Casey Castaneda MD [address] [place] [address] Cardiology 09/12/22 Caesar Prado MD [address] [place] [address] Physician Hematology/Oncology 12/26/22 Margot So, SUNIL [address] [place] [address] Specialty C Programmer Hematology/Oncology 12/26/22 aWyne Chavez, BYPRODUCTS MAKER.COMPLIANCE PROJECT MANAGER [address] [place] [address] Nurse Practitioner Hematology/Oncology 12/26/22 Generator Rebuilder Relationship Specialty Start Date End Date Yoan Sneed MD PCP - General Family Medicine 07/30/19 Jian Rodriguez MD Physician Urology 10/28/19 Casey Castaneda MD [address] [facility] [address] [place] [address] Cardiology 09/12/22 Caesar Prado MD [address] [place] [address] Physician Hematology/Oncology 12/26/22 Margot So, SUNIL [address] [place] [address] Specialty C Programmer Hematology/Oncology 12/26/22 Wayne Chavez, BYPRODUCTS MAKER.COMPLIANCE PROJECT MANAGER [address] [place] [address] Nurse Practitioner Hematology/Oncology 12/26/22 Generator Rebuilder Relationship Specialty Start Date End Date Yoan Sneed MD PCP - General Family Medicine 07/30/19 Jian Rodriguez MD Physician Urology 10/28/19 Casey Castaneda MD [address] [facility] [address] [place] [address] Cardiology 09/12/22 Caesar Prado MD [address] [place] [address] Physician Hematology/Oncology 12/26/22 Margot So, SUNIL [address] [facility] [place] [address] Specialty C Programmer Hematology/Oncology 12/26/22 Wayne Chavez APRN.COMPLIANCE PROJECT MANAGER [address] [facility] [address] Nurse Practitioner Hematology/Oncology 12/26/22 Generator Rebuilder Relationship Specialty Start Date End Date Yoan Sneed MD PCP - General Family Medicine 07/30/19 Jian Rodriguez MD Physician Urology 10/28/19 Generator Rebuilder Relationship Specialty Start Date End Date Yoan Sneed MD PCP - General Family Medicine 07/30/19 Jian Rodriguez MD Physician Urology 10/28/19 Casey Castaneda MD 5[address] [facility] [address] [place] [address] Cardiology 09/12/22 Caesar Prado MD [address] [place] [address] [place] [address] Physician Hematology/Oncology 12/26/22 Margot So, RN [address] [place] [address] [place] [address] Specialty C Programmer Hematology/Oncology 12/26/22 Wayne Chavez APRN.COMPLIANCE PROJECT MANAGER [address] [place] [address] [place] [address] Nurse Practitioner Hematology/Oncology 12/26/22 Generator Rebuilder Relationship Specialty Start Date End Date Yoan Sneed MD PCP - General Family Medicine 07/30/19 Jian Rodriguez MD Physician Urology 10/28/19 Casey Castaneda MD [address] [facility] [address] [place] [address] Cardiology 09/12/22 Caesar Prado MD [address] [place] [address] [place] [address] Physician Hematology/Oncology 12/26/22 Margot So, SUNIL [address] [place] [address] Specialty C Programmer Hematology/Oncology 12/26/22 Wayne Chavez, MARSHA.COMPLIANCE PROJECT MANAGER [address] [place] [address] Nurse Practitioner Hematology/Oncology 12/26/22 Generator Rebuilder Relationship Specialty Start Date End Date Yoan Sneed MD PCP - General Family Medicine 07/30/19 Jian Rodriguez MD Physician Urology 10/28/19 Casey Castaneda MD [address] [facility] [address] [place] [address] Cardiology 09/12/22 Caesar Prado MD [address] [place] [address] Physician Hematology/Oncology 12/26/22 Margot So RN [address] [place] [address] Specialty C Programmer Hematology/Oncology 12/26/22 Wayne Chavez, BYPRODUCTS MAKER.COMPLIANCE PROJECT MANAGER [address] [place] [address] Nurse Practitioner Hematology/Oncology 12/26/22 Generator Rebuilder Relationship Specialty Start Date End Date Yoan Sneed MD PCP - General Family Medicine 07/30/19 Jian Rodriguez MD Physician Urology 10/28/19 Casey Castaneda MD 5[address] [facility] 1 [place] [address] Cardiology 09/12/22 Caesar Prado MD [address] [facility] [place] [address] Physician Hematology/Oncology 12/26/22 Margot So, RN [address] [place] [address] Specialty C Programmer Hematology/Oncology 12/26/22 Wayne Chavez APRN.[facility] [address] [place] [address] Nurse Practitioner Hematology/Oncology 12/26/22 Generator Rebuilder Relationship Specialty Start Date End Date Yoan Sneed MD PCP - General Family Medicine 07/30/19 Jian Rodriguez MD Physician Urology 10/28/19 Casey Castaneda MD [address] [facility] [address] [place] [address] Cardiology 09/12/22 Caesar Prado MD [address] [facility] [place] [address] Physician Hematology/Oncology 12/26/22 Margot So, RN [address] [place] [address] Specialty C Programmer Hematology/Oncology 12/26/22 Wayne Chavez, BYPRODUCTS MAKER.COMPLIANCE PROJECT MANAGER [address] [place] [address] Nurse Practitioner Hematology/Oncology 12/26/22 Generator Rebuilder Relationship Specialty Start Date End Date Yoan Sneed MD PCP - General Family Medicine 07/30/19 Jian Rodriguez MD Physician Urology 10/28/19 Casey Castaneda MD [address] [facility] [address] [place] [address] Cardiology 09/12/22 Caesar Prado MD [address] [place] [address] Physician Hematology/Oncology 12/26/22 Margot So RN [address] [place] [address] Specialty C Programmer Hematology/Oncology 12/26/22 Wayne Chavez, BYPRODUCTS MAKER.COMPLIANCE PROJECT MANAGER [address] [place] [address] Nurse Practitioner Hematology/Oncology 12/26/22 Generator Rebuilder Relationship Specialty Start Date End Date Yoan Sneed MD PCP - General Family Medicine 07/30/19 Jian Rodriguez MD Physician Urology 10/28/19 Casey Castaneda MD [address] [facility] 1 [place] [address] Cardiology 09/12/22 Caesar Prado MD [address] [place] [address] Physician Hematology/Oncology 12/26/22 Margot So, RN [address] [place] [address] Specialty C Programmer Hematology/Oncology 12/26/22 Wayne Chavez APRN.COMPLIANCE PROJECT MANAGER [address] [facility] [place] [address] Nurse Practitioner Hematology/Oncology 12/26/22 Generator Rebuilder Relationship Specialty Start Date End Date Yoan Sneed MD PCP - General Family Medicine 07/30/19 Jian Rodriguez MD Physician Urology 10/28/19 Casey Castaneda MD [address] [facility] 1 [place] [address] Cardiology 09/12/22 Caesar Prado MD [address] [place] [address] Physician Hematology/Oncology 12/26/22 Margot So, SUNIL [address] [place] [address] Specialty C Programmer Hematology/Oncology 12/26/22 Wayne Chavez, MARSHA.COMPLIANCE PROJECT MANAGER [address] [place] [address] [place] [address] Nurse Practitioner Hematology/Oncology 12/26/22 Generator Rebuilder Relationship Specialty Start Date End Date Yoan Sneed MD PCP - General Family Medicine 07/30/19 Jian Rodriguez MD Physician Urology 10/28/19 Casey Castaneda MD [address] [facility] [address] [place] [address] Cardiology 09/12/22 Caesar Prado MD [address] [place] [address] [place] [address] Physician Hematology/Oncology 12/26/22 Margot So RN [address] [facility] [place] [address] Specialty C Programmer Hematology/Oncology 12/26/22 Wayne Chavez, BYPRODUCTS MAKER.COMPLIANCE PROJECT MANAGER [address] [place] [address] [place] [address] Nurse Practitioner Hematology/Oncology 12/26/22 FOR RECORDS PERTAINING [...] BE BASED ON THE PRIMARY CLINICAL RECORDS. [employer] [facility]. provides no warranty or guarantee of the accuracy or completeness of information in this document.
[2023-11-05] MEDS: LACTATED RINGER'S SOLUTION 1,000 ML 100 ML IV (15:08)
[2023-11-05] MEDS: PANTOPRAZOLE SODIUM 40 MG VIAL IV (15:09)
[2023-11-05] MEDS: METOCLOPRAMIDE HCL 10 MG/2 ML VIAL IVP ×2 (15:43→20:47)
[2023-11-05] MEDS: ISOSORBIDE DINITRATE 20 MG TABLET PO (17:39)
[2023-11-06] MEDS: LACTATED RINGER'S SOLUTION 1,000 ML 100 ML IV (01:28)
[2023-11-06] MEDS: METOCLOPRAMIDE HCL 10 MG/2 ML VIAL IVP ×2 (02:05→09:51)
[2023-11-06 04:17] VITALS: O2SAT 93
[2023-11-06 04:47] LABS: Basophils Percent Auto 0.5 % (0.2-2.0); Eosinophils Absolute Auto 0.1 10^3/uL (0.0-0.7); Eosinophils Percent Auto 1.4 % (0.9-7.0); Hematocrit 35.8 % (42.0-54.0); Hemoglobin 11.6 g/dL (14.0-18.0); Immature Granulocytes Abs Auto 0.03 10^3/uL (0.00-0.03); Immature Granulocytes Pct Auto 0.5 % (0.0-0.5); Lymphocytes Absolute Auto 0.5 10^3/uL (1.2-3.8); Lymphocytes Percent Auto 9.7 % (20.5-60.0); Mean Corpuscular HGB Conc 32.4 g/dL (29.9-35.2); Mean Corpuscular Hemoglobin 27.2 pg (25.9-34.0); Mean Platelet Volume 8.7 fL (9.5-13.5); Monocytes Absolute Auto 0.7 10^3/uL (0.3-0.8); Monocytes Percent Auto 12.1 % (1.7-12.0); Neutrophils Absolute Auto 4.2 10^3/uL (1.4-6.5); Neutrophils Percent Auto 75.8 % (43.0-75.0); Platelet Count 256 10^3/uL (150-450); Red Blood Count 4.26 10^6/uL (4.70-6.10); White Blood Count 5.6 10^3/uL (4.0-11.0)
[2023-11-06 05:12] LABS: Alanine Aminotransferase 20 U/L (16-63); Albumin Globulin Ratio 0.8; Albumin Level 1.9 g/dL (3.4-5.0); Alkaline Phosphatase 47 U/L (46-116); Anion Gap 10.3; Aspartate Amino Transferase 15 U/L (15-37); BUN Creatinine Ratio 11.4; Bilirubin Total 0.3 mg/dL (0.2-1.0); Calcium 7.9 mg/dL (8.5-10.1); Carbon Dioxide 24.5 mmol/L (21.0-32.0); Chloride 107 mmol/L (98-107); Estimated GFR (African America 45 (>=60); Estimated GFR (Non-African Ame 37 (>=60); Globulin 2.5 g/dL; Glucose 84 mg/dL (74-106); Magnesium 1.6 mg/dL (1.8-2.4); Potassium 3.8 mmol/L (3.5-5.1); Sodium 138 mmol/L (136-145); Total Protein 4.4 g/dL (6.4-8.2)
[2023-11-06] MEDS: ISOSORBIDE DINITRATE 20 MG TABLET PO ×2 (05:19→11:39)
[2023-11-06] MEDS: HYOSCYAMINE SULFATE 0.125 MG TAB.SUBL SL ×2 (05:19→11:39)
[2023-11-06] MEDS: LEVOTHYROXINE SODIUM 25 MCG TABLET PO (05:19)
[2023-11-06 05:28] VITALS: BP 112/62; PULSE 67; RESP 18; TEMP 36.8
[2023-11-06 07:47] VITALS: RESP 20
--- NOTE | 2023-11-06 07:52 | P.HP_ITS ---
H&P: HPI History of Present Illness Chief complaint: ABD PAIN Narrative: Patient presented to the emergency room with nausea vomiting and diarrhea. His last diarrhea episode was in the ER. No unusual foods lately, no travel. This morning his nausea vomiting is essentially resolved. Although he has not eaten yet this morning. Patient feels back to his normal self Review of Systems ROS Status of ROS 10 or more systems reviewed and unremark able except as noted in history and below PFSH PFSH Social History Smoking status: Former smoker Do you think of yourself as: straight/heterosexual Gender Identity: male Meds Home Medications and Allergies Home Medications Medication Instructions Recorded Confirmed Type amlodipine 10 mg tablet 10 mg PO DAILY 11/05/23 11/05/23 History aspirin 81 mg tablet,delayed 81 mg PO DAILY 11/05/23 11/05/23 History release (Adult Aspirin Regimen) atorvastatin 10 mg tablet 10 mg PO DAILY 11/05/23 11/05/23 History balsalazide 750 mg capsule 750 mg PO DAILY 11/05/23 11/05/23 History ferrous sulfate 325 mg (65 mg 325 mg PO DAILY 11/05/23 11/05/23 History iron) tablet furosemide 20 mg tablet (Lasix) 20 mg PO DAILY PRN edema 11/05/23 11/05/23 History hydralazine 50 mg tablet 50 mg PO TID 11/05/23 11/05/23 History isosorbide dinitrate 20 mg tablet 20 mg PO TID 11/05/23 11/05/23 History levothyroxine 25 mcg tablet 25 mcg PO QDAY 11/05/23 11/05/23 History losartan 50 mg tablet 50 mg PO QDAY 11/05/23 11/05/23 History metoprolol succinate 25 mg 25 mg PO DAILY 11/05/23 11/05/23 History tablet,extended release 24 hr pantoprazole 40 mg tablet,delayed 40 mg PO QPM 11/05/23 11/05/23 History release potassium chloride 10 mEq 10 meq PO QDAY 11/05/23 11/05/23 History tablet,extended release tamsulosin 0.4 mg capsule 0.4 mg PO Q24H 11/05/23 11/05/23 History Allergies Allergy/AdvReac Type Severity Reaction Status Date / Time adhesive tape AdvReac Intermediate Verified 11/05/23 10:36 Exam Constitutional Vital Signs, click to edit/add: Last Vital Signs Temp 98.3 F 11/06/23 05:28 Pulse 67 11/06/23 05:28 Resp 18 11/06/23 05:28 BP 112/62 11/06/23 05:28 Pulse Ox 93 L 11/06/23 04:17 O2 Del Method Room Air 11/06/23 05:28 Documenting provider has reviewed patient's vital signs: yes Common normals: no apparent distress Chest Common normals: inspection of chest normal Respiratory Common normals: normal respiratory effort and no retractions Cardio Common normals: regular rate, regular rhythm and no murmurs GI Common normals: Normal to inspection, nondistended, normoactive bowel sounds present, soft to palpation and non-tender Results Labs Labs: Short CBC 11/05/23 11/06/23 Range/Units 10:47 04:30 WBC 8.9 5.6 (4.0-11.0) 10^3/uL Hgb 13.6 L 11.6 L (14.0-18.0) g/dL Hct 40.8 L 35.8 L (42.0-54.0) % Plt Count 360 256 (150-450) 10^3/uL BMP 11/05/23 11/06/23 10:47 04:30 Sodium 136 138 Potassium 4.1 3.8 Chloride 102 107 Carbon Dioxide 25.6 24.5 BUN 29.0 H 20.0 H Creatinine 2.04 H 1.76 H Glucose 101 84 Calcium 8.3 L 7.9 L Liver Function 11/05/23 11/06/23 Range/Units 10:47 04:30 Total Bilirubin 0.6 0.3 (0.2-1.0) mg/dL Direct Bilirubin 0.2 (0.0-0.2) mg/dL AST 19 15 (15-37) U/L ALT 21 20 (16-63) U/L Alkaline Phosphatase 54 47 (46-116) U/L Albumin 2.5 L 1.9 L (3.4-5.0) g/dL Assessment and Plan Assessment and Plan (1) Intractable nausea and vomiting: Assessment and Plan: Acute gastroenteritis causing severe nausea vomiting and diarrhea, acute kidney injury with dehydration-diarrhea has resolved, will see how breakfast and lunch goes if he is good after lunch can be discharged home in improving condition. Medications see list. Does not need to follow-up in the office for this as long as he is doing well Hypomagnesemia-we will follow as an outpatient consider supplementation at that time Severe protein calorie malnutrition-diet management Iron deficiency anemia-monitor as an outpatient Patient placed in observation, will maintain that as it looks like he will be discharged home later today
[2023-11-06 08:04] VITALS: BP 122/47; RESP 20
[2023-11-06] MEDS: AMLODIPINE BESYLATE 5 MG TABLET 10 MG PO (09:20)
[2023-11-06] MEDS: ASPIRIN 81 MG TABLET.DR PO (09:20)
[2023-11-06] MEDS: TAMSULOSIN HCL 0.4 MG CAPSULE PO (09:20)
[2023-11-06] MEDS: METOPROLOL SUCCINATE 25 MG TAB.ER.24H PO (09:21)
[2023-11-06] MEDS: LOSARTAN POTASSIUM 50 MG TABLET PO (09:21)
[2023-11-06] MEDS: POTASSIUM CHLORIDE 10 MEQ ER TABLET PO (09:21)
[2023-11-06 10:54] LABS: Bilirubin Urine NEGATIVE (NEGATIVE); Blood Urine NEGATIVE (NEGATIVE); Clarity Urine CLEAR (CLEAR); Color Urine LT. YELLOW (YELLOW); Glucose Urine UA NEGATIVE (NEGATIVE); Ketones Urine NEGATIVE (NEGATIVE); Leukocyte Esterase Urine NEGATIVE (NEGATIVE); Nitrite Urine NEGATIVE (NEGATIVE); Protein Urine NEGATIVE (NEG/TRACE); Specific Gravity Urine <=1.005 (1.005-1.025); Urobilinogen Urine 0.2 EU/dL (0.2-1.0); pH Urine 5.5 (5.0-9.0)
[2023-11-06 10:56] LABS: Urine Microscopic Indicated NO
[2023-11-06 11:30] VITALS: O2SAT 92
--- NOTE | 2023-11-06 11:32 | SWNOTE1 ---
SW met with pt to discuss dc needs. Pt lives at home with his . Pt is caregiver for his , she has dementia. 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 Pt is independent. Pt has a daughter who works from home who helps with his . Pt denies having any needs at discharge.
--- NOTE | 2023-11-06 14:00 | CM.NOTE ---
Important Medicare Observation Notice discussed with pt, pt verbalizes understanding and signs paper. Original given to pt and copy placed on pt's chart.
--- NOTE | 2023-11-08 15:23 | CM.DCFOLLOWU ---
Person spoke with: Juan Jose How are you feeling? Vomited again when got home, called and got script for nausea and now he hasn't had anymore nausea or vomiting How is your pain? No pain Did you understand your discharge instructions? Yes Do you have any questions about your discharge instructions? No Were you given any prescriptions at discharge? No Were you able to get your prescriptions filled? N/A Do you understand how to take your medications as ordered? Yes Do you have any questions about your follow up appointment and do you plan to keep your follow up appointment? Yes I will go to appt scheduled for next week Is there anything else that you would like to discuss? No Questions/Comments/Concerns/Other:
== END 2023-11-06 13:08 | disposition home or self-care (01) ==
LOC: ER 12:36 → MS 13:33
PROVIDERS: Admitting Provider Family Medicine; Emergency Provider Emergency Medicine; PCP Family Medicine; Visit Provider Family Medicine
DX: K52.9 Noninfective gastroenteritis and colitis, unspecified (principal); E86.0 Dehydration; N17.9 Acute kidney failure, unspecified; E83.42 Hypomagnesemia; D50.9 Iron deficiency anemia, unspecified; E43 Unspecified severe protein-calorie malnutrition; Z68.26 Body mass index [BMI] 26.0-26.9, adult; R11.2 Nausea with vomiting, unspecified; C66.9 Malignant neoplasm of unspecified ureter; Z79.82 Long term (current) use of aspirin; Z79.899 Other long term (current) drug therapy; Z79.890 Hormone replacement therapy; Z87.891 Personal history of nicotine dependence
CPT/HCPCS: 36415; 74019; 76705; 80053; 81003; 82248; 83690; 83735; 83880; 84484; 85025; 87493; 87507; 93005; 94667; 94668; 94761; 96361; 96374; 96375; 96376; 99285; G0328; G0378; J2405; J2765

== ENCOUNTER 2023-11-14 08:21 | Outpatient (OUT) | payer MEDICARE, SELFPAY ==
--- NOTE | 2023-11-14 08:24 | CT_ITS ---
The [address] [address] Patient Name: YONG AUSTIN MRN: [id number] date: 1940 Sex: M Assigned Patient Location: CT Current Patient Location: CT Accession/Order Number: [id number] Exam Date: 11/14/2023 09:40 Report Date: 11/14/2023 10:29 At the request of: YOAN SNEED Procedure: CT abdomen pelvis w con EXAM: CT abdomen pelvis w con HISTORY: Abdominal Pain COMPARISON: CT from 10/30/2021, 08/15/2018. TECHNIQUE: CT abdomen pelvis w con FINDINGS: LOWER CHEST: LUNG BASES / PLEURA: Normal. DISTAL ESOPHAGUS: Normal. HEART / VESSELS: No significant abnormality. ABDOMEN and PELVIS: LIVER: Irregular areas of hypoattenuation in the medial left hepatic lobe, adjacent to the gallbladder fossa (image 30 of series 3) as well as along the falciform ligament (image 25 of series 3). These are low attenuating and unchanged the prior exam and likely benign BILIARY TRACT: Normal. GALLBLADDER: Mildly distended without CT-evident cholelithiasis. PANCREAS: Normal. SPLEEN: Peripherally enhancing lesion in the medial spleen measuring 1.9 cm (image 41 of series 3). This may correlate with an area of hypoattenuation seen on the prior exam. Smaller hypoattenuating focus more inferiorly within the spleen (image 48 of series 3). ADRENALS: Normal. KIDNEYS: The left kidney is surgically absent. No suspicious enhancement or nodularity within the resection bed. No right-sided obstructing stone. Minimal prominence of the right ureter without hydroureteronephrosis. Simple cyst of the interpolar region. LYMPH NODES: None enlarged. STOMACH / SMALL BOWEL: The stomach is distended with ingested material, including a hyperdense structure likely representing a pill capsule. A loop of small bowel abuts the umbilicus without evidence of strangulation or upstream obstruction. COLON / APPENDIX: Colonic diverticulosis. The appendix is normal. PERITONEUM / MESENTERY: Normal. RETROPERITONEUM: Stable area of fat necrosis in the lower left retroperitoneum, likely postsurgical. VESSELS: Moderate atherosclerotic disease of the normal caliber abdominal aorta and its major branches. URINARY BLADDER: Normal. Delayed images show partial distention of the urinary bladder with excreted contrast. No dependent filling defect. REPRODUCTIVE ORGANS: Changes suggesting prior TURP. BODY WALL: No significant abnormality. MUSCULOSKELETAL: No acute abnormality. Advanced multilevel degenerative changes of the lumbar spine CT/CT abdomen pelvis w con IMPRESSION: 1. Distention of the stomach with ingested material. Correlate with the timing of the patient's last meal. In the appropriate clinical setting, this could represent delayed gastric emptying and could partially explain the patient's symptoms. Otherwise, this is a normal physiologic appearance in the setting of recently ingested material. 2. Areas of hypoattenuation in the medial left hepatic lobe are felt to be stable from the prior exam. However, they are better visualized today and are irregular in shape. Therefore, a nonemergent liver protocol MRI is recommended for further evaluation. This MRI can also be used to assess the splenic lesions. Electronically authenticated by: JAIMEE FORD Date: 11/14/2023 10:29
== END 2023-11-14 08:22 | disposition home or self-care (01) ==
LOC: CT 08:21
PROVIDERS: PCP Family Medicine; Visit Provider Family Medicine
DX: R10.9 Unspecified abdominal pain (principal)
CPT/HCPCS: 74177; Q9966

== ENCOUNTER 2023-11-18 16:13 | Observation (INO) | payer MEDICARE, SELFPAY ==
[2023-11-18 17:04] VITALS: RESP 18
[2023-11-18 17:05] VITALS: BP 114/57; PULSE 73; RESP 18; TEMP 36.6; O2SAT 94
[2023-11-18 17:35] VITALS: BP 114/57; PULSE 73; RESP 18; TEMP 36.6; BMI 25.4
--- NOTE | 2023-11-18 18:12 | XR_ITS ---
The [address] [address] Patient Name: YONG AUSTIN MRN: [id number] date: 1940 Sex: M Assigned Patient Location: [place] Current Patient Location: [place] Accession/Order Number: [id number] Exam Date: 11/18/2023 18:50 Report Date: 11/18/2023 19:33 At the request of: YOAN SNEED Procedure: XR acute abdomen series EXAMINATION: XR acute abdomen series 11/18/2023 4:30 PM PST HISTORY: Abd Pain COMPARISONS: CT abdomen/pelvis 11/14/2023 FINDINGS: Chest findings: Lines/tubes/other: Cardiac pulse generator overlies the left thorax with two leads terminating in the regions of the right atrium and right ventricle. Heart and mediastinum: The heart and the mediastinum are within normal limits for technique. Bones: No acute osseous abnormality. Lungs: The lungs are clear. There is no evidence of pneumonia or pulmonary edema. Pleura: There is no significant pleural effusion or pneumothorax. Other: None. Abdominal findings: Nonobstructive bowel gas pattern. No pneumoperitoneum, pneumatosis, or portal venous gas. No abnormal soft tissue calcifications. Stool burden is average. XR/XR acute abdomen series IMPRESSION: No acute abnormality demonstrated in the chest or abdomen. Electronically authenticated by: ENID PALOMARES Date: 11/18/2023 19:33
[2023-11-18 18:45] LABS: Basophils Absolute Auto 0.1 10^3/uL (0.0-0.1); Basophils Percent Auto 0.8 % (0.2-2.0); Eosinophils Absolute Auto 0.3 10^3/uL (0.0-0.7); Eosinophils Percent Auto 3.9 % (0.9-7.0); Hematocrit 38.3 % (42.0-54.0); Hemoglobin 12.8 g/dL (14.0-18.0); Immature Granulocytes Abs Auto 0.02 10^3/uL (0.00-0.03); Immature Granulocytes Pct Auto 0.3 % (0.0-0.5); Lymphocytes Absolute Auto 0.3 10^3/uL (1.2-3.8); Mean Corpuscular HGB Conc 33.4 g/dL (29.9-35.2); Mean Corpuscular Hemoglobin 27.4 pg (25.9-34.0); Mean Platelet Volume 8.9 fL (9.5-13.5); Monocytes Absolute Auto 0.6 10^3/uL (0.3-0.8); Monocytes Percent Auto 9.9 % (1.7-12.0); Neutrophils Absolute Auto 5.1 10^3/uL (1.4-6.5); Neutrophils Percent Auto 80.1 % (43.0-75.0); Platelet Count 246 10^3/uL (150-450); Red Blood Count 4.67 10^6/uL (4.70-6.10); Red Cell Distribution Width 13.9 % (11.0-15.0); White Blood Count 6.4 10^3/uL (4.0-11.0)
[2023-11-18 18:59] LABS: Lactate/Lactic Acid 0.8 mmol/L (0.4-2.0)
[2023-11-18 19:04] LABS: Alanine Aminotransferase 24 U/L (16-63); Albumin Globulin Ratio 0.9; Albumin Level 2.4 g/dL (3.4-5.0); Alkaline Phosphatase 59 U/L (46-116); Amylase 47 U/L (25-115); Anion Gap 14.8; Aspartate Amino Transferase 21 U/L (15-37); BUN Creatinine Ratio 10.2; Bilirubin Total 0.8 mg/dL (0.2-1.0); Calcium 8.2 mg/dL (8.5-10.1); Carbon Dioxide 26.1 mmol/L (21.0-32.0); Chloride 96 mmol/L (98-107); Estimated GFR (African America 40 (>=60); Estimated GFR (Non-African Ame 33 (>=60); Globulin 2.6 g/dL; Glucose 90 mg/dL (74-106); Magnesium 1.5 mg/dL (1.8-2.4); Potassium 3.9 mmol/L (3.5-5.1); Sodium 133 mmol/L (136-145)
[2023-11-18] MEDS: 0.9 % SODIUM CHLORIDE 1,000 ML 1000 ML IV (19:13)
--- NOTE | 2023-11-18 19:18 | PC.NURSE ---
Iv restarted after site in the rt upper forearm was infiltrated before starting fluids. new site in the rt antcub started on the 2nd attempt with 22g cath. Good blood return andd flushes easily IV fluids up to infuse at 1l/h
[2023-11-18 19:30] VITALS: RESP 18
[2023-11-18] MEDS: LACTATED RINGER'S SOLUTION 1,000 ML 100 ML IV (20:07)
[2023-11-18] MEDS: LOSARTAN POTASSIUM 50 MG TABLET PO (20:08)
[2023-11-18] MEDS: POTASSIUM CHLORIDE 10 MEQ ER TABLET PO (20:08)
[2023-11-18 20:16] LABS: Bilirubin Urine NEGATIVE (NEGATIVE); Blood Urine NEGATIVE (NEGATIVE); Clarity Urine CLEAR (CLEAR); Color Urine LT. YELLOW (YELLOW); Glucose Urine UA NEGATIVE (NEGATIVE); Ketones Urine TRACE mg/dL (NEGATIVE); Leukocyte Esterase Urine NEGATIVE (NEGATIVE); Nitrite Urine NEGATIVE (NEGATIVE); Protein Urine NEGATIVE (NEG/TRACE); Specific Gravity Urine <=1.005 (1.005-1.025); Urobilinogen Urine 0.2 EU/dL (0.2-1.0); pH Urine 5.5 (5.0-9.0)
[2023-11-18 20:17] LABS: Urine Microscopic Indicated NO
[2023-11-18 20:23] VITALS: O2SAT 96
[2023-11-18] MEDS: ISOSORBIDE DINITRATE 20 MG TABLET PO (21:13)
[2023-11-18] MEDS: CALCIUM CARBONATE 500 MG (200MG ELEMENTAL) TAB CHEW PO (21:13)
[2023-11-18 21:24] VITALS: BP 113/47; PULSE 70; RESP 18; TEMP 36.6; O2SAT 92
[2023-11-19] VITALS (9 sets, daily range): BP systolic 111–140; BP diastolic 48–64; PULSE 66–75; RESP 16–20; TEMP 36.3–36.6; O2SAT 91–98
[2023-11-19] MEDS: LACTATED RINGER'S SOLUTION 1,000 ML 100 ML IV ×3 (04:05→23:39)
[2023-11-19 05:20] LABS: Basophils Percent Auto 0.8 % (0.2-2.0); Eosinophils Absolute Auto 0.3 10^3/uL (0.0-0.7); Hematocrit 34.8 % (42.0-54.0); Hemoglobin 11.5 g/dL (14.0-18.0); Immature Granulocytes Abs Auto 0.01 10^3/uL (0.00-0.03); Immature Granulocytes Pct Auto 0.3 % (0.0-0.5); Lymphocytes Absolute Auto 0.4 10^3/uL (1.2-3.8); Lymphocytes Percent Auto 11.5 % (20.5-60.0); Mean Corpuscular Hemoglobin 27.3 pg (25.9-34.0); Mean Corpuscular Volume 82.5 fL (80.0-94.0); Monocytes Absolute Auto 0.5 10^3/uL (0.3-0.8); Monocytes Percent Auto 12.5 % (1.7-12.0); Neutrophils Absolute Auto 2.6 10^3/uL (1.4-6.5); Neutrophils Percent Auto 67.9 % (43.0-75.0); Platelet Count 226 10^3/uL (150-450); Red Blood Count 4.22 10^6/uL (4.70-6.10); Red Cell Distribution Width 14.1 % (11.0-15.0); White Blood Count 3.8 10^3/uL (4.0-11.0)
[2023-11-19 05:41] LABS: Alanine Aminotransferase 18 U/L (16-63); Albumin Globulin Ratio 0.9; Alkaline Phosphatase 49 U/L (46-116); Anion Gap 11.4; Aspartate Amino Transferase 18 U/L (15-37); BUN Creatinine Ratio 10.6; Bilirubin Total 0.6 mg/dL (0.2-1.0); Calcium 7.8 mg/dL (8.5-10.1); Chloride 97 mmol/L (98-107); Estimated GFR (African America 47 (>=60); Estimated GFR (Non-African Ame 39 (>=60); Globulin 2.3 g/dL; Glucose 79 mg/dL (74-106); Potassium 3.4 mmol/L (3.5-5.1); Sodium 131 mmol/L (136-145); Total Protein 4.3 g/dL (6.4-8.2)
[2023-11-19] MEDS: ISOSORBIDE DINITRATE 20 MG TABLET PO ×3 (05:46→21:23)
--- NOTE | 2023-11-19 06:52 | FL_ITS ---
The [address] [address] Patient Name: YONG AUSTIN MRN: [id number] date: 1940 Sex: M Assigned Patient Location: Current Patient Location: Accession/Order Number: [id number] Exam Date: 11/19/2023 09:28 Report Date: 11/19/2023 09:54 At the request of: YOAN SNEED Procedure: FL upper GI series PROCEDURE: FL upper GI series COMPARISON: None. HISTORY: recurrent emesis TECHNIQUE: An air contrast upper gastrointestinal series was performed in the usual manner. Standard level fluoroscopic mode of operation utilized. FINDINGS: ESOPHAGUS:Mildly dilated with numerous tertiary waves. No stricture, mucosal thickening, or significant delay in emptying. STOMACH: No obstruction, mass, or ulceration. Normal motility. DUODENUM:No ulceration or diverticulum. OTHER: Negative. FL/FL upper GI series IMPRESSION: 1. Rapid emptying of the stomach; no suspicious findings. 2. Decreased esophageal peristalsis with numerous tertiary waves but no stricture; likely age related. Electronically authenticated by: ALTHEA SINGH Date: 11/19/2023 09:54
--- NOTE | 2023-11-19 08:54 | P.PN_ITS ---
Progress Note: Subjective Subjective Interval history: Patient admitted from the office with recurrent nausea vomiting. Daughter says about unable to keep down any food for 3 days. Initial evaluation did suggest dehydration. Patient given fluids overnight. Feels better today. Will check on upper GI. Exam Constitutional Vital Signs, click to edit/add: Last Vital Signs Temp 97.4 F L 11/19/23 07:50 Pulse 71 11/19/23 07:50 Resp 18 11/19/23 07:50 BP 111/52 11/19/23 07:50 Pulse Ox 94 L 11/19/23 07:50 O2 Del Method Room Air 11/19/23 07:50 Documenting provider has reviewed patient's vital signs: yes Common normals: no apparent distress Chest Common normals: inspection of chest normal Respiratory Common normals: normal respiratory effort and no retractions Cardio Common normals: regular rate, regular rhythm and no murmurs GI Common normals: Normal to inspection, nondistended, normoactive bowel sounds pr esent, soft to palpation and non-tender Progress Note: Objective Labs Labs: Short CBC 11/18/23 11/19/23 Range/Units 18:35 04:31 WBC 6.4 3.8 L (4.0-11.0) 10^3/uL Hgb 12.8 L 11.5 L (14.0-18.0) g/dL Hct 38.3 L 34.8 L (42.0-54.0) % Plt Count 246 226 (150-450) 10^3/uL BMP 11/18/23 11/19/23 18:35 04:31 Sodium 133 L 131 L Potassium 3.9 3.4 L Chloride 96 L 97 L Carbon Dioxide 26.1 26.0 BUN 20.0 H 18.0 Creatinine 1.97 H 1.70 H Glucose 90 79 Calcium 8.2 L 7.8 L Liver Function 11/18/23 11/19/23 Range/Units 18:35 04:31 Total Bilirubin 0.8 0.6 (0.2-1.0) mg/dL AST 21 18 (15-37) U/L ALT 24 18 (16-63) U/L Alkaline Phosphatase 59 49 (46-116) U/L Albumin 2.4 L 2.0 L (3.4-5.0) g/dL Urine 11/18/23 Range/Units 20:08 Urine Color Lt. yellow (YELLOW) Urine Clarity Clear (CLEAR) Urine pH 5.5 (5.0-9.0) Ur Specific [place] <=1.005 A (1.005-1.025) Urine Protein Negative (NEG/TRACE) mg/dL Urine Glucose (UA) Negative (NEGATIVE) mg/dL Progress Note: A&P Assessment and Plan (1) Intractable nausea and vomiting: Assessment and Plan: Hyponatremia, acute elevation in BUN/creatinine, hypokalemia secondary to dehydration secondary to recurrent nausea vomiting. Check an upper GI. Advance diet after that. Maintain fluid hydration through today. Consider CT scan repeat. He had 1 at last admission. Neutropenia-follow daily down somewhat from admission Hypertension-continue home medications Coronary artery disease-continue with home medications GERD-continue with medications (2) Hypertension: (3) GERD (gastroesophageal reflux disease): (4) BPH (benign prostatic hyperplasia): (5) Coronary artery disease: Plan Continue to monitor through the course of the day. He is to improve he can eat before he can be discharged home since this has become a recurrent episode
[2023-11-19] MEDS: PANTOPRAZOLE SODIUM 40 MG VIAL IV (09:15)
--- NOTE | 2023-11-19 09:56 | CM.NOTE ---
Reviewed Medicare Outpatient Observation Notice (M.O.O.N.) reviewed with Mr. Sanchez. Verbalizes understanding. Original to Mr. Sanchez, copy to chart.
--- NOTE | 2023-11-19 09:57 | CM.NOTE ---
Rounds made with Dr. Anderson. Dr. Anderson explains testing ordered (I) and would like to continue IVF today. Mr. Sanchez verbalizes understanding.
[2023-11-19] MEDS: CALCIUM CARBONATE 500 MG (200MG ELEMENTAL) TAB CHEW PO ×3 (11:24→21:24)
[2023-11-19] MEDS: PROSTAT 15 GM PROTEIN/100 CAL 30 ML LIQUID PACKET PO ×2 (11:25→21:22)
[2023-11-19] MEDS: ENSURE HP 237 ML LIQUID PO ×2 (11:26→21:22)
[2023-11-19] MEDS: ASPIRIN 81 MG TABLET.DR PO (11:39)
[2023-11-19] MEDS: FERROUS SULFATE 325 MG TABLET PO (11:39)
[2023-11-19] MEDS: LEVOTHYROXINE SODIUM 25 MCG TABLET PO (11:39)
[2023-11-19] MEDS: METOPROLOL SUCCINATE 25 MG TAB.ER.24H PO (11:39)
[2023-11-19] MEDS: TAMSULOSIN HCL 0.4 MG CAPSULE PO (11:41)
[2023-11-19] MEDS: POTASSIUM CHLORIDE 10 MEQ ER TABLET 20 MEQ PO (21:23)
[2023-11-19] MEDS: LOSARTAN POTASSIUM 50 MG TABLET PO (21:24)
[2023-11-19] MEDS: ONDANSETRON PF 4 MG/2 ML VIAL IV (23:35)
[2023-11-20 05:05] VITALS: BP 118/54; PULSE 61; RESP 20; TEMP 36.6; O2SAT 92
[2023-11-20 05:39] LABS: Basophils Percent Auto 0.9 % (0.2-2.0); Eosinophils Absolute Auto 0.2 10^3/uL (0.0-0.7); Eosinophils Percent Auto 6.6 % (0.9-7.0); Hemoglobin 11.4 g/dL (14.0-18.0); Immature Granulocytes Abs Auto 0.01 10^3/uL (0.00-0.03); Immature Granulocytes Pct Auto 0.3 % (0.0-0.5); Lymphocytes Absolute Auto 0.4 10^3/uL (1.2-3.8); Lymphocytes Percent Auto 12.2 % (20.5-60.0); Mean Corpuscular HGB Conc 32.6 g/dL (29.9-35.2); Mean Corpuscular Hemoglobin 27.1 pg (25.9-34.0); Mean Corpuscular Volume 83.1 fL (80.0-94.0); Mean Platelet Volume 9.4 fL (9.5-13.5); Monocytes Absolute Auto 0.5 10^3/uL (0.3-0.8); Monocytes Percent Auto 14.4 % (1.7-12.0); Neutrophils Absolute Auto 2.1 10^3/uL (1.4-6.5); Neutrophils Percent Auto 65.6 % (43.0-75.0); Platelet Count 212 10^3/uL (150-450); Red Blood Count 4.21 10^6/uL (4.70-6.10); White Blood Count 3.2 10^3/uL (4.0-11.0)
[2023-11-20 06:23] LABS: Alanine Aminotransferase 18 U/L (16-63); Albumin Globulin Ratio 0.9; Albumin Level 1.8 g/dL (3.4-5.0); Alkaline Phosphatase 48 U/L (46-116); Anion Gap 8.9; Aspartate Amino Transferase 23 U/L (15-37); BUN Creatinine Ratio 11.9; Bilirubin Total 0.3 mg/dL (0.2-1.0); Calcium 7.9 mg/dL (8.5-10.1); Chloride 102 mmol/L (98-107); Estimated GFR (African America 57 (>=60); Estimated GFR (Non-African Ame 47 (>=60); Globulin 2.1 g/dL; Glucose 96 mg/dL (74-106); Potassium 3.9 mmol/L (3.5-5.1); Sodium 134 mmol/L (136-145); Total Protein 3.9 g/dL (6.4-8.2)
[2023-11-20] MEDS: ISOSORBIDE DINITRATE 20 MG TABLET PO (07:14)
[2023-11-20] MEDS: CALCIUM CARBONATE 500 MG (200MG ELEMENTAL) TAB CHEW PO (07:14)
[2023-11-20] MEDS: ENSURE HP 237 ML LIQUID PO (08:33)
[2023-11-20] MEDS: METOPROLOL SUCCINATE 25 MG TAB.ER.24H PO (08:33)
[2023-11-20] MEDS: POTASSIUM CHLORIDE 10 MEQ ER TABLET 20 MEQ PO (08:33)
[2023-11-20] MEDS: ASPIRIN 81 MG TABLET.DR PO (08:33)
[2023-11-20] MEDS: FERROUS SULFATE 325 MG TABLET PO (08:33)
[2023-11-20] MEDS: LEVOTHYROXINE SODIUM 25 MCG TABLET PO (08:33)
[2023-11-20] MEDS: LOSARTAN POTASSIUM 50 MG TABLET PO (08:33)
[2023-11-20] MEDS: PANTOPRAZOLE SODIUM 40 MG VIAL IV (08:35)
[2023-11-20] MEDS: TAMSULOSIN HCL 0.4 MG CAPSULE PO (08:36)
--- NOTE | 2023-11-20 09:51 | PM.DS1 ---
DS: Providers Provider Date of admission: 11/18/23 16:13 Primary care physician: Sergio Anderson MD Consults: 11/18/23 18:12 Occupational Therapy Eval and Treat Routine Reason for consultation: Only if needed for Rehab Has provider been notified: No Physical Therapy Eval and Treat Routine Reason for consultation: Eval and Treat Has provider been notified: No DS: Diagnosis Discharge Diagnosis (1) Intractable nausea and vomiting: (2) Hypertension: (3) GERD (gastroesophageal reflux disease): (4) BPH (benign prostatic hyperplasia): (5) Coronary artery disease: DS: Summary Hospital Course Hospital Course: Patient seen and evaluated in the office, recently discharged from the hospital with nausea vomiting. Medications given at home are been ineffective. He states over the last 48 hours she has had continuous emesis and unable to keep down even liquids. With his symptoms he was made a direct admission to the hospital. When have significant tachycardia, mild acute kidney injury secondary to the dehydration. Placed on IV fluids small bolus initially. Patient tolerated the bolus. Over the last 24 hours his nausea vomiting is improved, he did have 1 emesis last night, the plan is if he tolerates breakfast and lunch he can be discharged home in improving condition. Medications see list. Follow-up with me in the office next week. He did have an upper GI that was within normal limits. Time Spent with Patient Time attestation: Total time spent providing and/or coordinating discharge services: Time spent: less than 30 minutes Exam Constitutional Vital Signs, click to edit/add: Last Vital Signs Temp 98 F 11/20/23 05:05 Pulse 61 11/20/23 05:05 Resp 20 11/20/23 05:05 BP 118/54 11/20/23 05:05 Pulse Ox 92 L 11/20/23 05:05 O2 Del Method Room Air 11/20/23 05:05 Documenting provider has reviewed patient's vital signs: yes Common normals: no apparent distress Chest Common normals: inspection of chest normal Respiratory Common normals: normal respiratory effort and no retractions Cardio Common normals: regular rate, regular rhythm and no murmurs GI Common normals: Normal to inspection, nondistended, normoactive bowel sounds present, soft to palpation and non-tender DS: Data Data Completed and Pending Labs on day of discharge: Labs from last 24 hours 11/20/23 04:38 WBC 3.2 L RBC 4.21 L Hgb 11.4 L Hct 35.0 L MCV 83.1 MCH 27.1 MCHC 32.6 RDW 14.0 Plt Count 212 MPV 9.4 L Neut % (Auto) 65.6 Lymph % (Auto) 12.2 L Travis % (Auto) 14.4 H Eos % (Auto) 6.6 Baso % (Auto) 0.9 Neut # (Auto) 2.1 Lymph # (Auto) 0.4 L [place] # (Auto) 0.5 Eos # (Auto) 0.2 Baso # (Auto) 0.0 Abs Immat Gran (auto) 0.01 Imm/Tot Granulo (auto) 0.3 Sodium 134 L Potassium 3.9 Chloride 102 Carbon Dioxide 27.0 Anion Gap 8.9 BUN 17.0 Creatinine 1.43 H Est GFR ( Amer) 57 L Est GFR (Non-Af Amer) 47 L BUN/Creatinine Ratio 11.9 Glucose 96 Calcium 7.9 L Total Bilirubin 0.3 AST 23 ALT 18 Alkaline Phosphatase 48 Total Protein 3.9 L Albumin 1.8 L Globulin 2.1 Albumin/Globulin Ratio 0.9 Discharge Plan Discharge Disposition: Home, Self-Care Discharge Medications: Continued amlodipine 10 mg tablet 10 mg PO DAILY aspirin [Adult Aspirin Regimen] 81 mg tablet,delayed release (DR/EC) 81 mg PO DAILY atorvastatin 10 mg tablet 10 mg PO DAILY ferrous sulfate 325 mg (65 mg iron) tablet 325 mg PO DAILY furosemide [Lasix] 20 mg tablet 20 mg PO DAILY PRN (Reason: edema) isosorbide dinitrate 20 mg tablet 20 mg PO TID losartan 50 mg tablet 50 mg PO BID metoprolol succinate 25 mg tablet extended release 24 hr 25 mg PO DAILY pantoprazole 40 mg tablet,delayed release (DR/EC) 40 mg PO QPM potassium chloride 10 mEq tablet extended release 10 meq PO BID tamsulosin 0.4 mg capsule 0.4 mg PO Q24H levothyroxine 25 mcg tablet 25 mcg PO QDAY ondansetron 4 mg tablet,disintegrating 4 mg PO Q4H PRN (Reason: NAUSEA/VOMITING) Activity: increase activity as tolerated Diet: advance to your usual diet Patient Instructions: Dehydration (DC), Acute Nausea and Vomiting (DC) Forms: Portal Instructions Follow Up Appointments: @ 11:[address] Anderson [phone] Discharge Date/Time: 11/20/23 12:35
--- NOTE | 2023-11-20 10:19 | CM.NOTE ---
Rounds made with Dr. Anderson. Potential discharge after lunch if no nausea/vomiting. Mr. Sanchez agreeable to plan of care.
--- NOTE | 2023-11-22 15:26 | CM.DCFOLLOWU ---
Person spoke with: daughter How are you feeling? he is not feeling any better and is still throwing up. How is your pain? no pain, just throwing up Did you understand your discharge instructions? yes Do you have any questions about your discharge instructions? no Were you given any prescriptions at discharge? no Were you able to get your prescriptions filled? n/a Do you understand how to take your medications as ordered? yes Do you have any questions about your follow up appointment and do you plan to keep your follow up appointment? no questions and plans on keeping appointment. Is there anything else that you would like to discuss? Daughter voiced frustration with Dr. Anderson saying he knew patient was still throwing up when he discharged him. Asked daughter if they have contacted Dr. Anderson's office to make him aware and she stated No, but he already knew this when he discharged him . Suggested she try to contact Dr. Anderson's office before end of day today with concerns, daughter did not state if she would or would not. Asked if there was anything else I could do at this time to assist her or the patient, she stated No thanks. Questions/Comments/Concerns/Other:
== END 2023-11-20 12:35 | disposition home or self-care (01) ==
PROVIDERS: Admitting Provider Family Medicine; PCP Family Medicine; Visit Provider Family Medicine
DX: E86.0 Dehydration (principal); E87.1 Hypo-osmolality and hyponatremia; E87.6 Hypokalemia; N17.9 Acute kidney failure, unspecified; I10 Essential (primary) hypertension; R11.2 Nausea with vomiting, unspecified; I25.10 Atherosclerotic heart disease of native coronary artery without angina pectoris; K21.9 Gastro-esophageal reflux disease without esophagitis; D70.9 Neutropenia, unspecified; N40.0 Benign prostatic hyperplasia without lower urinary tract symptoms; Z79.82 Long term (current) use of aspirin; Z79.899 Other long term (current) drug therapy; Z79.890 Hormone replacement therapy
CPT/HCPCS: 36415; 74022; 74240; 80053; 81003; 82150; 83605; 83690; 83735; 83880; 85025; 94667; 94761; 96361; 96374; 96375; 96376; G0378; G0379; J2405

== ENCOUNTER 2023-12-30 08:20 | Outpatient (OUT) | payer MEDICARE, SELFPAY ==
--- NOTE | 2023-12-30 | PCN_ITS ---
CARDIAC STRESS TEST Requesting Physician: Procedure Date: 12/30/2023 This was a Lexiscan stress test with myocardial perfusion imaging performed at the [facility]. Informed consent was obtained. An intravenous line was secured. Baseline vital signs and ECG were obtained. Lexiscan 0.4 mg was infused intravenously, slowly, followed by administration of Cardiolite. The patient went on to obtain myocardial perfusion imaging. Resting heart rate was 60 BPM and maximum heart rate was 78 BPM. Resting blood pressure was 124/70 and maximum blood pressure was 124/70. Resting ECG showed ventricular paced rhythm with a possible background of atrial fibrillation. ECG following infusion of Lexiscan showed a paced rhythm. Final ECG was comparable to baseline. SUMMARY OF THE FINDINGS: 1. Uninterpretable stress test by ECG criteria, given presence of ventricular pacing. 2. Myocardial perfusion imaging will be reported separately. MTDD
--- NOTE | 2023-12-30 07:30 | NM_ITS ---
Patient Name: YONG AUSTIN MR#: [id number] : 1940 Exam Date: 12/30/2023 Ordering Doctor: JOSESITO CONTRERAS RADIOLOGY REPORT PROCEDURE: NM ALBINO PERF SPECT REST STR COMPARISON: None. INDICATIONS: Heart disease suspected, Other forms of dyspnea TECHNIQUE: Exam Description: Stress/Rest one day protocol gated SPECT Rest Imagin.0 mCi Tc-99m Cardiolite IV on 12/30/2023 Stress Imaging 32.0 mCi Tc-99m Cardiolite IV on 12/30/2023 Exercise Protocol: 0.4 mg Lexiscan given IV Heart Rate (bpm): Rest: 60 Max: 78 PMHR: 57 Blood Pressure: Rest: 124/70 Max: 124/70 Symptoms: Chest pain Rest and peak stress ECG findings were non-diagnostic and the exercise portion of the study was Non-diagnostic per attending physician Dr. Castaneda . For more details please see separate cardiac stress test report. FINDINGS: QUALITY OF STUDY: Good. PERFUSION DEFECT: LOCATION: Basal inferoseptal. Basal inferior. Mid-inferoseptal. Mid-inferior. Apical inferior. [place]. SIZE: Large (5 or more segments). SEVERITY: Severe. TYPE: Persistent. WALL MOTION: Severe hypokinesis: LV SIZE: Enlarged; EDV 133 mL. TID / TCD: None; 1.0 LVEF: Abnormal. Calculated EF 53%. SUMMARY: Myocardial perfusion imaging study has ABNORMAL findings. CONCLUSION: 1. Large area of severely decreased uptake in the inferior wall extending into the septum and apex on stress images with no reversibility on rest images, RCA distribution 2. Associated hypokinesis corresponding to the perfusion abnormality 3. Dilated left ventricle with end-diastolic volume 133 milliliters 4. Low left ventricular ejection fraction of 53% 5. Nondiagnostic exercise test Dictated by: Augusto Avalos MD on 12/30/2023 at 14:47 Approved by: Augusto Avalos MD on 12/30/2023 at 14:51
--- OUTSIDE RECORDS SUMMARY | 2023-12-30 08:25 | XMS_ITS | CCD ---
Author Name Unknown Address [address] [place] [address] Organization [facility] Care Team Providers Care Stock Turner Name Role Phone PHYSICIAN, DEFAULT Unavailable Unavailable PHYSICIAN, DEFAULT Unavailable Unavailable PHYSICIAN, DEFAULT Unavailable Unavailable PHYSICIAN, DEFAULT Unavailable Unavailable Yoan Sneed MD Primary Care Provider [phone] Jian Rodriguez MD Unavailable Unavailable Mike BARBER, Lauren Barros Unavailable Soren Perea MD Unavailable Corazon Maxwell PA-C Unavailable Augusto Sauceda Unavailable Shawn Nelson Unavailable Yoan Sneed MD Primary Care Provider [phone] Jian Rodriguez MD Unavailable Unavailable Soren Perea MD Unavailable Casey Castaneda MD Unavailable [phone] Yoan Sneed Primary Care Physician [phone] Yoan Sneed MD Primary Care Provider [phone] Caesar Vazquez MD Unavailable Saray BARBER, Margot Unavailable Wayne Chavez APRN.CNP [...] HOY ., DR MILTON Primary Care Unavailable Jian Rodriguez MD Unavailable Jian RODRIGUEZ Attending Unavailable Jian RODRIGUEZ Attending Unavailable Saray ABRBER, Margot Unavailable JAIMEE RHODES Attending Unavailable HOY, YOAN M Primary Care Unavailable JAIMEE RHODES Attending Unavailable JAIMEE RHODES Referring Unavailable HOY, YOAN M Primary Care Unavailable AHMED, MIGUEL Attending Unavailable PATRICIA WHITING Referring Unavailable AHMED, MIGUEL Admitting Unavailable BEN JOSESITO Referring Unavailable AHMED, MIGUEL Referring Unavailable AHMED, MIGUEL Referring Unavailable AHMED, MIGUEL Referring Unavailable DAGOBERTO JAMES Attending Unavailable JIMBO BAUTISTA Referring Unavailable JONATHAN LEIGH Attending Unavailable JOSESITO VILLANUEVA Attending Unavailable JIMBO BAUTISTA Attending Unavailable JOSESITO VILLANUEVA Attending Unavailable MERZA, NOORALDIN Referring Unavailable LILY JIMBO Referring Unavailable ELMO, ALFONZOEED Referring Unavailable ELMOALFONZOEED Attending Unavailable MERZA, NOORALDIN Referring Unavailable ABHYANKAR, CAESAR Referring Unavailable HOY, YOAN M Primary Care Unavailable HOY, YOAN M Primary Care Unavailable ABHYANKAR, CAESAR Referring Unavailable HOY, YOAN M Primary Care Unavailable ABHYANKAR, CAESAR Attending Unavailable HOY, YOAN M Primary Care Unavailable ABHYANKAR, CAESAR Referring Unavailable ABHYANKAR, CAESAR Attending Unavailable HOY, YOAN M Primary Care Unavailable WAYNE CHAVEZ Attending Unavailable ABHYANKAR, CAESAR Referring Unavailable HOY, [...] Primary Care Unavailable ABHYANKAR, CAESAR Referring Unavailable ABHYANKAR, CAESAR Attending Unavailable HOY, YOAN [...] Primary Care Unavailable WAYNE CHAVEZ Attending Unavailable SCOTT, WAYNE Referring Unavailable HOY, YOAN M Primary Care Unavailable ABHYANKAR, CAESAR Attending Unavailable HOY, YOAN M Primary Care Unavailable Allergies Allergy Classification Reported Allergen(s) Allergy Type Date of Onset Reaction(s) Facility (20 sources) Adhesive Tape; Translations: [ADHESIVE TAPE (ROSINS)] Propensity to adverse reactions to substance 8 Other: See Comments [facility] (2 sources) Adhesive Tape; Translations: [Tape] Allergy to substance Blister of skin without infection (disorder) [facility] (4 sources) [place] Drug Allergy 4 Unknown [facility] Repository (1 source) No Known Medication Allergies; Translations: [No Known Medication Allergies] Propensity to adverse reactions (disorder) [facility] Repository (2 sources) Adhesive agent; Translations: [ADHESIVE] Propensity to adverse reactions to drug (disorder) 8 [facility] Repository (1 source) OTHER; Translations: [OTHER] Propensity to adverse reactions (disorder) 8 [facility] Repository (1 source) Desonide; Translations: [DESONIDE] Drug Allergy 4 [facility] Repository NEGATED: Highlighted row has been ruled out! (1 source) Drug allergy [facility] Medications Current Medications Medication Drug Class(es) Dates Sig (Normalized) Sig (Original) balsalazide disodium 750 mg oral capsule (20 sources) Aminosalicylate Start: 07-13-2019 take 750 mg by mouth three times daily balsalazide 750 mg, Oral, TID, Refills(s) 0 Start Date: 07/13/19 Status: Ordered Start: 06-25-2017 End: 12-24-2023 take 3 capsules by mouth once daily balsalazide (COLAZAL) 750 mg capsule Take 2,250 mg by mouth once daily. 0 06/25/2017 12/24/2023 Discontinued (Discontinued by Patient) Start: 06-25-2017 take 2 capsules by m [...] 1,500 mg by jenn th once daily. Take 2,250 mg by jenn th once daily. carvedilol [...] Take 20 mg by mouth once daily. Take 20 mg by mouth as needed. glucosamine hydrochloride 1500 mg oral tablet (5 [...] Take 25 mg by mouth twice daily. prochlorperazine 10 mg oral tablet (12 sources) Phenothiazine Start: End: take 1 tablet by mouth every six hours as needed prochlorperazine (COMPAZINE) 10 mg tablet Take 1 tablet by mouth every 6 hours as needed. 100 tablet 2 11/21/2021 05/03/2022 Discontinued Comment on above: [facility] as [facility]. Completed/Discontinued Medications [...] sources) Dihydropyridine Calcium Channel Constantin Start: 05-05-20 18 End: 05-03-20 22 take 1 tablet by mouth once daily [...] tablet (20 sources) HMG-CoA Reductase Inhibitor Start: 8 take 1 tablet by mouth once daily [...] Comment on above: [facility]. ciprofloxacin 250 mg oral tablet (1 source) Quinolone Antimicrobial Start: 3 take 1 tablet by mouth once daily Cipro 250 mg Tab 250 mg = 1 tab(s), Oral, Daily, Take 1 tablet the day before the procedure and 1 tablet after the procedure, # 2 tab(s), Refills(s) 0, Pharmacy: [facility] [id number], 167, cm, 12/05/22 9:25:00 EST, Height/Length Dosing, [...] 11/26/2022 Start: 05-23-2022 take 1 capsule by mo uth twice daily docusate sodium (COLACE) 100 mg capsule Take 1 capsule by mouth twice daily. 10 capsule 0 05/23/2022 Active Comment on above: Take 1 capsule by mo uth twice daily. Take 1 capsule by mo uth twice daily for 14 days. Stop taking [...] (8 sources) Angiotensin Converting Enzyme Inhibitor End: take 1 tablet by mouth once daily enalapril (VASOTEC) 5 mg tablet Take 5 mg by mouth once daily. 0 04/04/2023 Discontinued (Changing Therapy/Dosage Form) Comment on above: Take 5 mg by mouth o nce daily. enteric contrast (will be provided with radiology test) (11 sources) Start: End: enteric contrast (will be provided with radiology test) For CT CHESTABD/PEL W IVCON Routine order Administer, As Directed One Time Only, via Oral, Rectal, both Oral and Rectal, Enteric Tube, Stoma or Indwelling Catheter, Enteric Contrast as designated per enteric contrast guidelines 1 Each 0 12/20/2023 12/21/2023 Start: 07-18-2023 End: 07-19-2023 enteric contrast (will be pr ovided with [...] guidelines ferrous sulfate 325 mg oral tablet (18 sources) ferrous sulfate 325 mg (65 mg iron) tablet Take 325 mg by mouth. 0 Active Comment on above: Take 325 mg by mouth . Fish Oil-[place]-3 Fatty Acids (FISH OIL) 300-1,000 mg cap (13 sources) take 1 capsule by mouth once daily Fish Oil-[place]-3 Fatty Acids (FISH OIL) 300-1,000 mg cap [...] tablet (20 sources) Arteriolar Vasodilator Start: 02-22-20 hydrALAZINE (APRESOLINE) 50 mg tablet Take 25 mg by mouth three times a day. 0 02/21/2022 Active Start: 02-21-2022 take 1 tablet by jenn th three times daily hydrALAZINE (APRESOLINE) 50 mg [...] 50 mg by mouth three times daily. Take 25 mg by mouth three times a day. hydroCHLOROthiazide 25 mg / triamterene 37.5 mg oral tablet (1 source) Potassium-sparing Diuretic, Thiazide Diuretic Start: End: take 1 tablet by mouth once daily triamterene-hydroch lorothiazide (MAXZIDE-25) 37.5-25 mg per tablet Take 1 tablet by mouth once daily. 0 05/14/2018 11/01/2021 Discontinued Comment on above: Take 1 tablet by jenn th once daily. 24 hr isosorbide mononitrate 30 mg extended release oral tablet (20 sources) Nitrate Vasodilator End: take 1 tablet by mouth once daily, then take 1 tablet by mouth every twenty-four hours isosorbide mononitrate ER (IMDUR) 30 mg 24 hr tablet Take 30 mg by mouth once daily. 0 12/24/2023 Discontinued (Discontinued by Patient) Comment on above: Take 30 mg by mouth once daily. isosorbide dinitrate 20 mg oral tablet (20 sources) Nitrate Vasodilator Start: 023 take 1 tablet by mouth three times daily isosorbide dinitrate (ISORDIL) 20 mg tablet Take 20 mg by mouth three times a day. 0 08/15/2023 Active Start: 08-16-2021 take 1 tablet by [...] mg by mouth three times daily. Take 20 mg by mouth three times a day. iv contrast (will be provided with radiology test) (20 sources) Start: 12-20-2023 End: 12-21-2023 iv contrast (will be provided with radiology [...] contrast administration guidelines link. 1 Each 0 12/20/2023 12/21/2023 Start: 07-18-2023 End: 07-19-2023 iv contrast (will be provide d with [...] Each 0 07/18/2023 07/19/2023 Start: 05-16-2023 End: 12-24-2023 iv contrast (will be provide d with [...] administration guidelines link. 1 Each 0 05/16/2023 12/24/2023 Discontinued (Discontinued by Patient) Start: 05-16-2023 iv contrast (w ill be [...] link. levothyroxine sodium 0.025 mg oral tablet (12 sources) l-Thyroxine Start: 023 take 1 tablet [...] mg tablet Take 50 mg by mouth two times a day. 0 07/13/2019 Active Losartan Damiáni um Active Comment on above: Take 50 mg by mouth twice daily. Take 50 mg by mouth. Take 50 mg by mouth two times a day. Methylcellulose (1 source) End: 022 methylcellulose (CITRUCEL [...] 2 g by mouth on ce daily. omeprazole 20 mg delayed release oral capsule (20 sources) Proton Pump Inhibitor Start: 07-13-2019 take 20 mg by mouth once daily omeprazole 20 mg, Oral, Daily, Refills(s) 0 Start Date: 07/13/19 Status: Ordered Start: 06-27-2018 End: 03-07-2024 take 1 capsule by mouth twice daily omeprazole (PRILOSEC) 20 mg capsule Take 1 capsule by mouth twice daily. 60 capsule 0 11/21/2021 12/24/2023 Discontinued (Discontinued by Patient) Comment on above: Take 1 capsule by [facility] twice daily. Take 20 mg by mouth twice daily. ondansetron 4 mg disintegrating oral tablet (15 sources) Serotonin-3 Receptor Antagonist Start: 11-18-2023 ondansetron orally disintegrating (ZOFRAN ODT) 4 mg disintegrating tablet Start: 11-21-2021 End: 05-03-2022 take 1 tablet by mouth every eight hours as needed ondansetron (ZOFRAN) 8 mg tablet Take 1 tablet by mouth every 8 hours as needed for nausea/vomiting. 90 tablet 2 11/21/2021 05/03/2022 Discontinued Comment on above: Take 1 tablet by jenn th every 8 hours as needed for nausea/vomiting. oxybutynin chloride 5 mg oral tablet (3 sources) Cholinergic Muscarinic Antagonist Start: 022 take 1 tablet by mouth every eight hours as needed oxybutynin (DITROPAN) 5 mg tablet Take 1 tablet by mouth three times daily as needed (bladder spasms). 12 tablet 0 05/23/2022 Active Comment on above: Take 1 tablet by jenn th three times daily as needed (bladder spasms). oxyCODONE hydrochloride 5 mg oral tablet (7 sources) Opioid Agonist Start: 023 take 1 tablet by mouth every eight [...] pantoprazole 40 mg delayed release oral tablet (7 sources) Proton Pump Inhibitor Start: 08-15-[address] (PROTONIX) 40 mg tablet 4 ml pembrolizumab 25 mg/ml injection (19 sources) Programmed Receptor-1 Blocking Antibody pembrolizumab (KEYTR [...] Take 10 mEq by mouth twice daily. predniSONE 20 mg oral tablet (8 sources) Start: 12-20-2023 take 1 tablet by mouth once daily predniSONE (DELTASONE) 20 mg tablet Take 1 tablet by mouth once daily. Prednisone 20 mg for 5 days then 10 mg daily. 60 tablet 0 12/20/2023 Active Start: 08-29-2023 End: 09-28-2023 take 4 tablets by mouth once daily [...] 1 tablet by jenn th once daily. Take 4 tablets by mo uth once daily. Take 1 tablet by jenn th once daily. Prednisone 20 mg for 5 days then 10 mg daily. tamsulosin hydrochloride 0.4 mg oral capsule (20 sources) alpha-Adrenergic Constantin Start: 2 End: 3 take 1 capsule by mouth once daily [...] source) History of bladder neoplasm 07-13-2019 Episodic Chronic kidney disease (20 sources) Chronic kidney disease stage 3; Translations: [Stage 3 chronic kidney disease] Onset: 9 08-11-2019 Chronic Conduction disorders (8 sources) Encounter for adjustment and management of automatic implantable cardiac defibrillator; Translations: [Encounter for adjustment and management of other part of cardiac pacemaker] Onset: 3 Chronic Congestive heart failure; nonhypertensive (5 sources) Acute systolic (congestive) heart failure; Translations: [Acute on chronic systolic (congestive) heart failure] Onset: 2 Chronic Diseases of mouth; excluding dental (1 [...] Onset: 1 10-26-2021 Chronic Malaise and fatigue (4 sources) Malaise and fatigue; Translations: [Other malaise] Onset: 4 06-28-2023 Episodic Nausea and vomiting (3 sources) Nausea with vomiting, unspecified; Translations: [Nausea] Onset: 4 Episodic Nutritional deficiencies (1 source) Vitamin D deficiency, unspecified; Translations: [VITAMIN D DEFICIENCY UNSPECIFIED] Onset: 2 Chronic Osteoarthritis (1 source) Unspecified osteoarthritis, unspecified site; Translations: [UNSPECIFIED OSTEOARTHRITIS UNS SITE] Onset: 3 Chronic Other aftercare (1 source) 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; Translations: [OTH M[facility] CURRENT DRUG THERAPY] Onset: 3 Episodic Other aftercare (1 source) 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; Translations: [MCC CURRENT USE OF ASPIRIN] Onset: 3 Episodic Other diseases of kidney and ureters (1 source) Urinary tract obstruction; Translations: [Other obstructive and reflux uropathy] Onset: 3 Episodic Other gastrointestinal disorders (1 source) Diarrhea, unspecified Episodic Other lower respiratory disease (1 source) Shortness of breath; Translations: [SHORTNESS OF BREATH] Onset: 3 Episodic Other lower respiratory disease (2 sources) Other forms of dyspnea; Translations: [Other forms of dyspnea] Onset: 4 Episodic Other nervous system disorders (4 sources) Tremor, unspecified; Translations: [TREMOR UNSPECIFIED] Onset: 3 Episodic Other non-epithelial cancer of skin (1 source) Personal history of other malignant neoplasm of skin; Translations: [PERSONAL HX OTH MALIG NEOPLASM SKIN] Onset: 3 Episodic Other nutritional; endocrine; and metabolic disorders (20 sources) Obese class I; Translations: [Obesity, unspecified] Onset: 2 03-27-2022 Chronic Other nutritional; endocrine; and metabolic disorders (1 source) Abnormal weight loss; Translations: [Abnormal weight loss] 12-20-2023 Episodic Other screening for suspected conditions (not mental [...] NICOTINE DEPEND] Onset: 3 Episodic Thyroid disorders (2 sources) Disorder of thyroid gland; Translations: [Disorder of thyroid, unspecified] 06-06-2023 Episodic Unclassified (1 source) Drug therapy finding 04-28-2019 Unclassified (1 source) CHRN KIDNEY DISEASE STG 3 UNSP; Translations: [CHRN KIDNEY DISEASE STG 3 UNSP] Onset: 2 Urinary tract infections (1 source) Acute cystitis; Translations: [Acute cystitis without hematuria] Episodic Past or Other Problems Problem Classification Problem Date Documented Da te Episodic/Chronic Acute and unspecified renal failure (20 sources) Acute injury of kidney; Translations: [Acute kidney failure, unspecified] Onset: 11-01-2021 11-01-2021 Episodic Cancer of bladder (1 source) Personal [...] Translations: [OTHER ABNORMAL GLUCOSE] Onset: 09-30-2022 Episodic Genitourinary symptoms and ill-defined conditions (20 sources) Tre hematuria; Translations: [Gross hematuria] Onset: 11-09-2022 11-14-2022 Episodic Other aftercare (2 sources) Encounter for other specified surgical aftercare; Translations: [Encounter for other specified surgical aftercare] Onset: 03-27-2023 Episodic Other diseases of kidney and ureters (20 sources) Hydronephrosis; Translations: [Unspecified hydronephrosis] Onset: 09-30-2019 09-30-2019 Episodic Residual codes; unclassified (20 sources) Absent kidney; Translations: [Acquired absence of kidney] Onset: 07-18-2018 10-26-2021 Episodic Syncope (6 sources) Syncope and collapse; Translations: [SYNCOPE AND COLLAPSE] Onset: 01-11-2023 Episodic Results Test Name Value Interpretation Reference Range Facility CBC W Auto Differential pane l (Bld)on 12-20-2023 Basophils (Bld) [#/Vol] 0.05 10*3/uL Normal <0.11 [facility] Comment on above: Order Comment: Speci men Type: BLOOD SPECIMENOrdering Facility: [facility] Address: [address] [place] [address] Performed By: #### 5 7021-8 ####[facility] LABCLIA [id number] [place] [address] Basophils/100 WBC (Bld) 0.9 % Normal [facility] Comment on above: Order Comment: Speci men Type: BLOOD SPECIMENOrdering Facility: [facility] Address: [address] [place] [address] Performed By: #### 5 7021-8 ####[facility] LABCLIA [id number] [place] [address] Differential cell count method Nom (Bld) Auto Normal [facility] Comment on above: Order Comment: Speci men Type: BLOOD SPECIMENOrdering Facility: [facility] Address: [address] [place] [address] Performed By: #### 5 7021-8 ####[facility] LABCLIA [id number] [place] [address] Eosinophils (Bld) [#/Vol] 0.07 10*3/uL Normal <0.46 [facility] Comment on above: Order Comment: Speci men Type: BLOOD SPECIMENOrdering Facility: [facility] Address: [address] [place] [address] Performed By: #### 5 7021-8 ####[facility] LABCLIA [id number] [place] [address] Eosinophils/100 WBC (Bld) 1.3 % Normal [facility] Comment on above: Order Comment: Speci men Type: BLOOD SPECIMENOrdering Facility: [facility] Address: [address] [place] [address] Performed By: #### 5 7021-8 ####[facility] LABCLIA [id number] [place] [address] Erythrocyte distribution width (RBC) [Ratio] 15.9 % High 11.5-15.0 [facility] Comment on above: Order Comment: Speci men Type: BLOOD SPECIMENOrdering Facility: [facility] Address: [address] [place] [address] Performed By: #### 5 7021-8 ####[facility] LABCLIA [id number] [place] [address] Hematocrit (Bld) [Volume fraction] 39.1 % Normal 39.0-51.0 [facility] Comment on above: Order Comment: Speci men Type: BLOOD SPECIMENOrdering Facility: [facility] Address: [address] [place] [address] Performed By: #### 5 7021-8 ####[facility] LABCLIA [id number] [place] [address] Hemoglobin (Bld) [Mass/Vol] 13.2 g/dL Normal 13.0-17.0 [facility] Comment on above: Order Comment: Speci men Type: BLOOD SPECIMENOrdering Facility: [facility] Address: [address] [place] [address] Performed By: #### 5 7021-8 ####[facility] LABCLIA [id number] [place] [address] Immature granulocytes (Bld) [#/Vol] 10*3/uL Normal <0.10 [facility] Comment on above: Order Comment: Speci men Type: BLOOD SPECIMENOrdering Facility: [facility] Address: [address] [place] [address] Performed By: #### 5 7021-8 ####[facility] LABCLIA [id number] [place] [address] Immature granulocytes/100 WBC (Bld) 0.4 % Normal [facility] Comment on above: Order Comment: Speci men Type: BLOOD SPECIMENOrdering Facility: [facility] Address: [address] [place] [address] Performed By: #### 5 7021-8 ####[facility] LABCLIA [id number] [place] [address] Lymphocytes (Bld) [#/Vol] 0.47 10*3/uL Low 1.00-4.00 [facility] Comment on above: Order Comment: Speci men Type: BLOOD SPECIMENOrdering Facility: [facility] Address: [address] [place] [address] Performed By: #### 5 7021-8 ####[facility] LABCLIA [id number] [place] [address] Lymphocytes/100 WBC (Bld) 8.6 % Normal [facility] Comment on above: Order Comment: Speci men Type: BLOOD SPECIMENOrdering Facility: [facility] Address: [address] [place] [address] Performed By: #### 5 7021-8 ####[facility] LABCLIA [id number] [place] [address] MCH (RBC) [Entitic mass] 27.5 pg Normal 26.0-34.0 [facility] Comment on above: Order Comment: Speci men Type: BLOOD SPECIMENOrdering Facility: [facility] Address: [address] [place] [address] Performed By: #### 5 7021-8 ####[facility] LABCLIA [id number] [place] [address] MCHC (RBC) [Mass/Vol] 33.8 g/dL Normal 30.5-36.0 [facility] Comment on above: Order Comment: Speci men Type: BLOOD SPECIMENOrdering Facility: [facility] Address: [address] [place] [address] Performed By: #### 5 7021-8 ####[facility] LABIA [id number] [place] [address] MCV (RBC) [Entitic vol] 81.5 fL Normal 80.0-100.0 [facility] Comment on above: Order Comment: Speci men Type: BLOOD SPECIMENOrdering Facility: [facility] Address: [address] [place] [address] Performed By: #### 5 7021-8 ####[facility] LABIA [id number] [place] [address] Monocytes (Bld) [#/Vol] 0.41 10*3/uL Normal <0.87 [facility] Comment on above: Order Comment: Speci men Type: BLOOD SPECIMENOrdering Facility: [facility] Address: [address] [place] [address] Performed By: #### 5 7021-8 ####[facility] LABIA [id number] [place] [address] Monocytes/100 WBC (Bld) 7.5 % Normal [facility] Comment on above: Order Comment: Speci men Type: BLOOD SPECIMENOrdering Facility: [facility] Address: [address] [place] [address] Performed By: #### 5 7021-8 ####[facility] LABCLIA [id number] [place] [address] Neutrophils (Bld) [#/Vol] 4.43 10*3/uL Normal 1.45-7.50 [facility] Comment on above: Order Comment: Speci men Type: BLOOD SPECIMENOrdering Facility: [facility] Address: [address] [place] [address] Performed By: #### 5 7021-8 ####[facility] LABCLIA [id number] [place] [address] Neutrophils/100 WBC (Bld) 81.3 % Normal [facility] Comment on above: Order Comment: Speci men Type: BLOOD SPECIMENOrdering Facility: [facility] Address: [address] [place] [address] Performed By: #### 5 7021-8 ####[facility] LABCLIA [id number] [place] [address] Nucleated RBC (Bld) [#/Vol] 10*3/uL Normal <0.01 [facility] Comment on above: Order Comment: Speci men Type: BLOOD SPECIMENOrdering Facility: [facility] Address: [address] [place] [address] Performed By: #### 5 7021-8 ####[facility] LABIA [id number] [place] [address] Nucleated RBC/100 WBC (Bld) [Ratio] 0.0 /100 WBC Normal [facility] Comment on above: Order Comment: Speci men Type: BLOOD SPECIMENOrdering Facility: [facility] Address: [address] [place] [address] Performed By: #### 5 7021-8 ####[facility] LABIA [id number] [place] [address] Platelet mean volume (Bld) [Entitic vol] 8.3 fL Low 9.0-12.7 [facility] Comment on above: Order Comment: Speci men Type: BLOOD SPECIMENOrdering Facility: [facility] Address: [address] [place] [address] Performed By: #### 5 7021-8 ####[facility] LABCLIA [id number] [place] [address] Platelets (Bld) [#/Vol] 234 10*3/uL Normal 150-400 [facility] Comment on above: Order Comment: Speci men Type: BLOOD SPECIMENOrdering Facility: [facility] Address: [address] [place] [address] Performed By: #### 5 7021-8 ####[facility] LABIA [id number] [place] [address] RBC (Bld) [#/Vol] 4.80 10*6/uL Normal 4.20-6.00 [facility] Comment on above: Order Comment: Speci men Type: BLOOD SPECIMENOrdering Facility: [facility] Address: [address] [place] [address] Performed By: #### 5 7021-8 ####[facility] LABIA [id number] [place] [address] WBC (Bld) [#/Vol] 5.45 10*3/uL Normal 3.70-11.00 [facility] Comment on above: Order Comment: Speci men Type: BLOOD SPECIMENOrdering Facility: [facility] Address: [address] [place] [address] Performed By: #### 5 7021-8 ####[facility] LABIA [id number] [place] [address] CNOVSPon 12-20-2023 CNOVSP Normal [facility] metabolic 2000 panelon 12-20-2023 Albumin [Mass/Vol] 3.6 g/dL Low 3.9-4.9 [facility] Comment on above: Order Comment: Speci men Type: BLOOD SPECIMENOrdering Facility: [facility] Address: [address] [place] [address] Performed By: #### 2 4323-8 ####[facility] LABCLIA [id number] [place] [address] ALP [Catalytic activity/Vol] 59 U/L Normal 38-113 [facility] Comment on above: Order Comment: Speci men Type: BLOOD SPECIMENOrdering Facility: [facility] Address: [address] [place] [address] Performed By: #### 2 4323-8 ####[facility] LABCLIA [id number] [place] [address] ALT [Catalytic activity/Vol] 19 U/L Normal 10-54 [facility] Comment on above: Order Comment: Speci men Type: BLOOD SPECIMENOrdering Facility: [facility] Address: [address] [place] [address] Performed By: #### 2 4323-8 ####[facility] LABCLIA [id number] [place] [address] Anion gap [Moles/Vol] 8 mmol/L Low 9-18 [facility] Comment on above: Order Comment: Speci men Type: BLOOD SPECIMENOrdering Facility: [facility] Address: [address] [place] [address] Performed By: #### 2 4323-8 ####[facility] LABCLIA [id number] [place] [address] AST [Catalytic activity/Vol] 27 U/L Normal 14-40 [facility] Comment on above: Order Comment: Speci men Type: BLOOD SPECIMENOrdering Facility: [facility] Address: [address] [place] [address] Performed By: #### 2 4323-8 ####[facility] LABCLIA [id number] [place] [address] Bilirubin [Mass/Vol] 0.7 mg/dL Normal 0.2-1.3 [facility] Comment on above: Order Comment: Speci men Type: BLOOD SPECIMENOrdering Facility: [facility] Address: [address] [place] [address] Performed By: #### 2 4323-8 ####[facility] LABCLIA [id number] [place] [address] Calcium [Mass/Vol] 9.0 mg/dL Normal 8.5-10.2 [facility] Comment on above: Order Comment: Speci men Type: BLOOD SPECIMENOrdering Facility: [facility] Address: [address] [place] [address] Performed By: #### 2 4323-8 ####[facility] LABCLIA [id number] [place] [address] Chloride [Moles/Vol] 97 mmol/L Normal 97-105 [facility] Comment on above: Order Comment: Speci men Type: BLOOD SPECIMENOrdering Facility: [facility] Address: [address] [place] [address] Performed By: #### 2 4323-8 ####[facility] LABCLIA [id number] [place] [address] CO2 [Moles/Vol] 27 mmol/L Normal 22-30 [facility] Comment on above: Order Comment: Speci men Type: BLOOD SPECIMENOrdering Facility: [facility] Address: [address] [place] [address] Performed By: #### 2 4323-8 ####[facility] LABCLIA [id number] [place] [address] Creatinine [Mass/Vol] 1.75 mg/dL High 0.73-1.22 [facility] Comment on above: Order Comment: Speci men Type: BLOOD SPECIMENOrdering Facility: [facility] Address: [address] [place] [address] Performed By: #### 2 4323-8 ####[facility] LABCLIA [id number] [place] [address] Creatinine and Glomerular filtration rate.predicted panel (S/P/Bld) 38 mL/min/1.73m??? Low >=60 [facility] Comment on above: Order Comment: Specronnie barton Type: BLOOD SPECIMENOrdering Facility: [facility] Address: [address] [place] [address] Result Comment: Viviana mated Glomerular Filtration Rate [...] actual GFR. Performed By: #### 2 4323-8 ####[facility] LABIA [id number] [place] [address] Glucose [Mass/Vol] 113 mg/dL High 74-99 [facility] Comment on above: Order Comment: Speci oralia Type: BLOOD SPECIMENOrdering Facility: [facility] Address: [address] [place] [address] Result Comment: The [place] Diabetes Association (ADA) provides guidance for cutoff [...] Standards of Medical Care in Diabetes 2016, [place] [employer] Association. Diabetes Care. 2016.39(Suppl 1). Performed By: #### 2 4323-8 ####[facility] LABCLIA [id number] [place] [address] Potassium [Moles/Vol] 4.2 mmol/L Normal 3.7-5.1 [facility] Comment on above: Order Comment: Speci men Type: BLOOD SPECIMENOrdering Facility: [facility] Address: [address] [place] [address] Performed By: #### 2 4323-8 ####[facility] LABCLIA [id number] [place] [address] Protein [Mass/Vol] 5.2 g/dL Low 6.3-8.0 [facility] Comment on above: Order Comment: Speci men Type: BLOOD SPECIMENOrdering Facility: [facility] Address: [address] [place] [address] Performed By: #### 2 4323-8 ####[facility] LABCLIA [id number] [place] [address] Sodium [Moles/Vol] 132 mmol/L Low 136-144 [facility] Comment on above: Order Comment: Speci men Type: BLOOD SPECIMENOrdering Facility: [facility] Address: [address] [place] [address] Performed By: #### 2 4323-8 ####[facility] LABCLIA [id number] [place] [address] Urea nitrogen [Mass/Vol] 14 mg/dL Normal 9-24 [facility] Comment on above: Order Comment: Speci men Type: BLOOD SPECIMENOrdering Facility: [facility] Address: [address] [place] [address] Performed By: #### 2 4323-8 ####[facility] LABCLIA [id number] [place] [address] Cortis Keisha-Ricaon 12-20-19 24 Cortisol [Mass/Vol] 12.4 ug/dL Normal 4.8-19.5 [facility] Comment on above: Order Comment: Speci men Type: BLOOD SPECIMENOrdering Facility: [facility] Address: [address] [place] [address] Result Comment: Prov ided reference range is from 6-10 AM sample collection time.Cortisol Reference Range: 6-10 AM = 4.8-19.5 ug/dL, 4-8 PM = 2.5-11.9 ug/dL Performed By: #### 2 143-6, 3016-3 ####[facility] LABCLIA [id number] [place] HbA1c (Bld)on 12-20-2023 Average glucose Estimated from glycated hemoglobin (Bld) [Mass/Vol] 94 mg/dL Normal [facility] Comment on above: Order Comment: Vero barton Type: BLOOD SPECIMENOrdering Facility: [facility] Address: [address] [place] [address] Result Comment: eAG: (Estimated average glucose) is a calculated value from HgbA1c and is operations support representative of the average blood glucose level in the last 2-3 month period. Performed By: #### 5 5454-3 ####[facility] LABIA [id number] [address] [place] [facility] HbA1c (Bld) [Mass fraction] 4.9 % Normal 4.3-5.6 [facility] Comment on above: Order Comment: Vero barton Type: BLOOD SPECIMENOrdering Facility: [facility] Address: [address] [place] [address] Result Comment: Amer [place] Diabetes Association guidelines indicate that patients with HgbA1c in the range 5.7-6.4% are at increased risk for development of diabetes, and intervention by lifestyle modification may be beneficial. HgbA1c greater or equal to 6.5% is considered diagnostic of diabetes. Performed By: #### 5 5454-3 ####[facility] LABCLIA [id number] [place] [address] [place] TSH SerPl-aCncon 12-20-2023 TSH Qn 4.170 m[IU]/L Normal 0.270-4.200 [facility] Comment on above: Order Comment: Vero barton Type: BLOOD SPECIMENOrdering Facility: [facility] Address: [address] [place] [address] Performed By: #### 2 143-6, 3016-3 ####[facility] LABCLIA [id number] [facility] [id number] [id number] [facility] Office Visiton 12-09-2023 Follow-up visit [id number] Juan Jose Austin Shirley 1940 M Date Provider Department Center 12/09/2023 Khris6-JOSESITO VILLANUEVA CARD [facility] Family History Problem Relation Age of Onset Heart failure Mother Family Status - Relation Status Age at Mother Level of Service:59048 [place] OFFICE/OUTPATIENT ESTABLISHED MOD MDM 30 MIN Normal [facility] CBC W Auto Differential pane l (Bld)on 11-29-2023 Basophils (Bld) [#/Vol] 0.06 10*3/uL Normal <0.11 [facility] Comment on above: Order Comment: Speci men Type: BLOOD SPECIMENOrdering Facility: [facility] Address: [address] [place] [address] Performed By: #### 5 7021-8 ####[facility] LABCLIA [id number] [place] [address] Basophils/100 WBC (Bld) 1.0 % Normal [facility] Comment on above: Order Comment: Speci men Type: BLOOD SPECIMENOrdering Facility: [facility] Address: [address] [place] [address] Performed By: #### 5 7021-8 ####[facility] LABCLIA [id number] [place] [address] Differential cell count method Nom (Bld) Auto Normal [facility] Comment on above: Order Comment: Speci men Type: BLOOD SPECIMENOrdering Facility: [facility] Address: [address] [place] [address] Performed By: #### 5 7021-8 ####[facility] LABCLIA [id number] [place] [address] Eosinophils (Bld) [#/Vol] 0.08 10*3/uL Normal <0.46 [facility] Comment on above: Order Comment: Speci men Type: BLOOD SPECIMENOrdering Facility: [facility] Address: [address] [place] [address] Performed By: #### 5 7021-8 ####[facility] LABCLIA [id number] [place] [address] Eosinophils/100 WBC (Bld) 1.3 % Normal [facility] Comment on above: Order Comment: Speci men Type: BLOOD SPECIMENOrdering Facility: [facility] Address: [address] [place] [address] Performed By: #### 5 7021-8 ####[facility] LABCLIA [id number] [place] [address] Erythrocyte distribution width (RBC) [Ratio] 15.0 % Normal 11.5-15.0 [facility] Comment on above: Order Comment: Speci men Type: BLOOD SPECIMENOrdering Facility: [facility] Address: [address] [place] [address] Performed By: #### 5 7021-8 ####[facility] LABCLIA [id number] [place] [address] Hematocrit (Bld) [Volume fraction] 40.4 % Normal 39.0-51.0 [facility] Comment on above: Order Comment: Speci men Type: BLOOD SPECIMENOrdering Facility: [facility] Address: [address] [place] [address] Performed By: #### 5 7021-8 ####[facility] LABCLIA [id number] [place] [address] Hemoglobin (Bld) [Mass/Vol] 13.6 g/dL Normal 13.0-17.0 [facility] Comment on above: Order Comment: Speci men Type: BLOOD SPECIMENOrdering Facility: [facility] Address: [address] [place] [address] Performed By: #### 5 7021-8 ####[facility] LABCLIA [id number] [place] [address] Immature granulocytes (Bld) [#/Vol] 0.03 10*3/uL Normal <0.10 [facility] Comment on above: Order Comment: Speci men Type: BLOOD SPECIMENOrdering Facility: [facility] Address: [address] [place] [address] Performed By: #### 5 7021-8 ####[facility] LABCLIA [id number] [place] [address] Immature granulocytes/100 WBC (Bld) 0.5 % Normal [facility] Comment on above: Order Comment: Speci men Type: BLOOD SPECIMENOrdering Facility: [facility] Address: [address] [place] [address] Performed By: #### 5 7021-8 ####[facility] LABCLIA [id number] [place] [address] Lymphocytes (Bld) [#/Vol] 0.63 10*3/uL Low 1.00-4.00 [facility] Comment on above: Order Comment: Speci men Type: BLOOD SPECIMENOrdering Facility: [facility] Address: [address] [place] [address] Performed By: #### 5 7021-8 ####[facility] LABCLIA [id number] [place] [address] Lymphocytes/100 WBC (Bld) 10.5 % Normal [facility] Comment on above: Order Comment: Speci men Type: BLOOD SPECIMENOrdering Facility: [facility] Address: [address] [place] [address] Performed By: #### 5 7021-8 ####[facility] LABIA [id number] [place] [address] MCH (RBC) [Entitic mass] 27.5 pg Normal 26.0-34.0 [facility] Comment on above: Order Comment: Speci men Type: BLOOD SPECIMENOrdering Facility: [facility] Address: [address] [place] [address] Performed By: #### 5 7021-8 ####[facility] LABCLIA [id number] [place] [address] MCHC (RBC) [Mass/Vol] 33.7 g/dL Normal 30.5-36.0 [facility] Comment on above: Order Comment: Speci men Type: BLOOD SPECIMENOrdering Facility: [facility] Address: [address] [place] [address] Performed By: #### 5 7021-8 ####[facility] LABCLIA [id number] [place] [address] MCV (RBC) [Entitic vol] 81.6 fL Normal 80.0-100.0 [facility] Comment on above: Order Comment: Speci men Type: BLOOD SPECIMENOrdering Facility: [facility] Address: [address] [place] [address] Performed By: #### 5 7021-8 ####[facility] LABCLIA [id number] [place] [address] Monocytes (Bld) [#/Vol] 0.47 10*3/uL Normal <0.87 [facility] Comment on above: Order Comment: Speci men Type: BLOOD SPECIMENOrdering Facility: [facility] Address: [address] [place] [address] Performed By: #### 5 7021-8 ####[facility] LABCLIA [id number] [place] [address] Monocytes/100 WBC (Bld) 7.9 % Normal [facility] Comment on above: Order Comment: Speci men Type: BLOOD SPECIMENOrdering Facility: [facility] Address: [address] [place] [address] Performed By: #### 5 7021-8 ####[facility] LABCLIA [id number] [place] [address] Neutrophils (Bld) [#/Vol] 4.71 10*3/uL Normal 1.45-7.50 [facility] Comment on above: Order Comment: Speci men Type: BLOOD SPECIMENOrdering Facility: [facility] Address: [address] [place] [address] Performed By: #### 5 7021-8 ####[facility] LABCLIA [id number] [place] [address] Neutrophils/100 WBC (Bld) 78.8 % Normal [facility] Comment on above: Order Comment: Speci men Type: BLOOD SPECIMENOrdering Facility: [facility] Address: [address] [place] [address] Performed By: #### 5 7021-8 ####[facility] LABCLIA [id number] [place] [address] Nucleated RBC (Bld) [#/Vol] 10*3/uL Normal <0.01 [facility] Comment on above: Order Comment: Speci men Type: BLOOD SPECIMENOrdering Facility: [facility] Address: [address] [place] [address] Performed By: #### 5 7021-8 ####[facility] LABCLIA [id number] [place] [address] Nucleated RBC/100 WBC (Bld) [Ratio] 0.0 /100 WBC Normal [facility] Comment on above: Order Comment: Speci men Type: BLOOD SPECIMENOrdering Facility: [facility] Address: [address] [place] [address] Performed By: #### 5 7021-8 ####[facility] LABCLIA [id number] [place] [address] Platelet mean volume (Bld) [Entitic vol] 8.5 fL Low 9.0-12.7 [facility] Comment on above: Order Comment: Speci men Type: BLOOD SPECIMENOrdering Facility: [facility] Address: [address] [place] [address] Performed By: #### 5 7021-8 ####[facility] LABCLIA [id number] [place] [address] Platelets (Bld) [#/Vol] 234 10*3/uL Normal 150-400 [facility] Comment on above: Order Comment: Speci men Type: BLOOD SPECIMENOrdering Facility: [facility] Address: [address] [place] [address] Performed By: #### 5 7021-8 ####[facility] LABCLIA [id number] [place] [address] RBC (Bld) [#/Vol] 4.95 10*6/uL Normal 4.20-6.00 [facility] Comment on above: Order Comment: Speci men Type: BLOOD SPECIMENOrdering Facility: [facility] Address: [address] [place] [address] Performed By: #### 5 7021-8 ####[facility] LABIA [id number] [place] [address] WBC (Bld) [#/Vol] 5.98 10*3/uL Normal 3.70-11.00 [facility] Comment on above: Order Comment: Speci men Type: BLOOD SPECIMENOrdering Facility: [facility] Address: [address] [place] [address] Performed By: #### 5 7021-8 ####[facility] LABCLIA [id number] [place] [address] CNOVSPon 11-29-2023 CNOVSP Normal [facility] Comprehensive metabolic 2000 panelon 11-29-2023 Albumin [Mass/Vol] 3.5 g/dL Low 3.9-4.9 [facility] Comment on above: Order Comment: Speci men Type: BLOOD SPECIMENOrdering Facility: [facility] Address: [address] [place] [address] Performed By: #### 2 4323-8 ####[facility] LABCLIA [id number] [place] [address] ALP [Catalytic activity/Vol] 68 U/L Normal 38-113 [facility] Comment on above: Order Comment: Speci men Type: BLOOD SPECIMENOrdering Facility: [facility] Address: [address] [place] [address] Performed By: #### 2 4323-8 ####[facility] LABCLIA [id number] [place] [address] ALT [Catalytic activity/Vol] 15 U/L Normal 10-54 [facility] Comment on above: Order Comment: Speci men Type: BLOOD SPECIMENOrdering Facility: [facility] Address: [address] [place] [address] Performed By: #### 2 4323-8 ####[facility] LABCLIA [id number] [place] [address] Anion gap [Moles/Vol] 9 mmol/L Normal 9-18 [facility] Comment on above: Order Comment: Speci men Type: BLOOD SPECIMENOrdering Facility: [facility] Address: [address] [place] [address] Performed By: #### 2 4323-8 ####[facility] LABCLIA [id number] [place] [address] AST [Catalytic activity/Vol] 21 U/L Normal 14-40 [facility] Comment on above: Order Comment: Speci men Type: BLOOD SPECIMENOrdering Facility: [facility] Address: [address] [place] [address] Performed By: #### 2 4323-8 ####[facility] LABCLIA [id number] [place] [address] Bilirubin [Mass/Vol] 0.6 mg/dL Normal 0.2-1.3 [facility] Comment on above: Order Comment: Speci men Type: BLOOD SPECIMENOrdering Facility: [facility] Address: [address] [place] [address] Performed By: #### 2 4323-8 ####[facility] LABCLIA [id number] [place] [address] Calcium [Mass/Vol] 8.9 mg/dL Normal 8.5-10.2 [facility] Comment on above: Order Comment: Speci men Type: BLOOD SPECIMENOrdering Facility: [facility] Address: [address] [place] [address] Performed By: #### 2 4323-8 ####[facility] LABCLIA [id number] [place] [address] Chloride [Moles/Vol] 100 mmol/L Normal 97-105 [facility] Comment on above: Order Comment: Speci men Type: BLOOD SPECIMENOrdering Facility: [facility] Address: [address] [place] [address] Performed By: #### 2 4323-8 ####[facility] LABCLIA [id number] [place] [address] CO2 [Moles/Vol] 27 mmol/L Normal 22-30 [facility] Comment on above: Order Comment: Speci men Type: BLOOD SPECIMENOrdering Facility: [facility] Address: [address] [place] [address] Performed By: #### 2 4323-8 ####[facility] LABCLIA [id number] [place] [address] Creatinine [Mass/Vol] 1.87 mg/dL High 0.73-1.22 [facility] Comment on above: Order Comment: Speci men Type: BLOOD SPECIMENOrdering Facility: [facility] Address: [address] [place] [address] Performed By: #### 2 4323-8 ####[facility] LABCLIA [id number] [place] [address] Creatinine and Glomerular filtration rate.predicted panel (S/P/Bld) 35 mL/min/1.73m??? Low >=60 [facility] Comment on above: Order Comment: Speci men Type: BLOOD SPECIMENOrdering Facility: [facility] Address: [address] [id number] Result Comment: Viviana mated Glomerular Filtration Rate [...] actual GFR. Performed By: #### 2 4323-8 ####[facility] LABCLIA [id number] [place] [address] Glucose [Mass/Vol] 126 mg/dL High 74-99 [facility] Comment on above: Order Comment: Vero barton Type: BLOOD SPECIMENOrdering Facility: [facility] Address: [address] [place] [address] Result Comment: The [place] Diabetes Association (ADA) provides guidance for cutoff [...] Standards of Medical Care in Diabetes 2016, [place] [employer]. Diabetes Care. 2016.39(Suppl 1). Performed By: #### 2 4323-8 ####[facility] LABCLIA [id number] [place] [address] Potassium [Moles/Vol] 3.5 mmol/L Low 3.7-5.1 [facility] Comment on above: Order Comment: Vero barton Type: BLOOD SPECIMENOrdering Facility: [facility] Address: [address] [id number] Performed By: #### 2 4323-8 ####[facility] LABCLIA [id number] [place] [address] Protein [Mass/Vol] 5.4 g/dL Low 6.3-8.0 [facility] Comment on above: Order Comment: Speci men Type: BLOOD SPECIMENOrdering Facility: [facility] Address: [address] [place] [address] Performed By: #### 2 4323-8 ####[facility] LABCLIA [id number] [place] [address] Sodium [Moles/Vol] 136 mmol/L Normal 136-144 [facility] Comment on above: Order Comment: Speci men Type: BLOOD SPECIMENOrdering Facility: [facility] Address: [address] [place] [address] Performed By: #### 2 4323-8 ####[facility] LABCLIA [id number] [place] [address] Urea nitrogen [Mass/Vol] 12 mg/dL Normal 9-24 [facility] Comment on above: Order Comment: Speci men Type: BLOOD SPECIMENOrdering Facility: [facility] Address: [address] [place] [address] Performed By: #### 2 4323-8 ####[facility] LABCLIA [id number] [place] [address] Beverly Koehler [birth year] 24 Cortisol [Mass/Vol] 11.1 ug/dL Normal 4.8-19.5 [facility] Comment on above: Order Comment: Speci men Type: BLOOD SPECIMENOrdering Facility: [facility] Address: [address] [place] [address] Result Comment: Prov ided reference range is from 6-10 AM sample collection time.Cortisol Reference Range: 6-10 AM = 4.8-19.5 ug/dL, 4-8 PM = 2.5-11.9 ug/dL Performed By: #### 3 016-3, 2143-6 ####[facility] LABCLIA [id number] [place] [address] [place] HbA1c (Bld)on 11-29-2023 Average glucose Estimated from glycated hemoglobin (Bld) [Mass/Vol] 100 mg/dL Normal [facility] Comment on above: Order Comment: Vero barton Type: BLOOD SPECIMENOrdering Facility: [facility] Address: [address] [place] [address] Result Comment: eAG: (Estimated average glucose) is a calculated value from HgbA1c and is operations support representative of the average blood glucose level in the last 2-3 month period. Performed By: #### 5 5454-3 ####[facility] [id number] [address] STATES OF [facility] HbA1c (Bld) [Mass fraction] 5.1 % Normal 4.3-5.6 [facility] Comment on above: Order Comment: Vero barton Type: BLOOD SPECIMENOrdering Facility: [facility] Address: [address] [place] [address] Result Comment: Amer [place] Diabetes Association guidelines indicate that patients with HgbA1c in the range 5.7-6.4% are at increased risk for development of diabetes, and intervention by lifestyle modification may be beneficial. HgbA1c greater or equal to 6.5% is considered diagnostic of diabetes. Performed By: #### 5 5454-3 ####[facility] [id number] [place] [address] [place] TSH SerPl-aCncon 11-29-2023 TSH Qn 4.370 m[IU]/L High 0.270-4.200 [facility] Comment on above: Order Comment: Vero barton Type: BLOOD SPECIMENOrdering Facility: [facility] Address: [address] [place] [address] Performed By: #### 3 016-3, 2143-6 ####[facility] [id number] [place] [address] [place] CNPNon 11-21-2023 CNPN Normal [facility] CNPNon 11-14-2023 CNPN Normal [facility] CNPNon 11-06-2023 CNPN Normal [facility] CBC AND AUTO DIFFon 11-02-19 ABSOLUTE BASOPHIL 0.0 X10E9/L Normal 0.0-0.2 [facility] Comment on above: Performed By: #### C BCA, 90260-5, CMP, 3040-3, 11695-2, 66770- 9 #### [facility] ([id number]) [address] [place] [address] 95308 ABSOLUTE NEUTROPHIL 8.0 X10E9/L High 1.5-6.6 [facility] Comment on above: Performed By: #### C BCA, 93889-7, CMP, 3040-3, 42273-6, 87014- 9 #### [facility] ([id number]) [address] [place] [address] 90664 Basophils/100 WBC (Bld) 0.3 % Normal [facility] Comment on above: Performed By: #### C BCA, 51853-1, CMP, 3040-3, 21791-4, 39860- 9 #### [facility] ([id number]) [address] [place] [address] 91047 Eosinophils (Bld) [#/Vol] 0.1 10*3/uL Normal 0.0-0.4 [facility] Comment on above: Performed By: #### C BCA, 74454-5, CMP, 3040-3, 30168-1, 59644- 9 #### [facility] ([id number]) [address] [place] [address] 28108 Eosinophils/100 WBC (Bld) 0.9 % Normal [facility] Comment on above: Performed By: #### C BCA, 70032-6, CMP, 3040-3, 72018-0, 76595- 9 #### [facility] ([id number]) [address] [place] [address] 04938 Erythrocyte distribution width (RBC) [Ratio] 14.8 % Normal 11.5-15.0 [facility] Comment on above: Performed By: #### C BCA, 16922-3, CMP, 3040-3, 92524-3, 11614- 9 #### [facility] ([id number]) [address] [place] [address] 89190 Hematocrit (Bld) [Volume fraction] 40.4 % Normal 39-49 [facility] Comment on above: Performed By: #### C BCA, 29646-0, CMP, 3040-3, 32884-8, 95215- 9 #### [facility] ([id number]) [address] [place] [address] 92251 Hemoglobin (Bld) [Mass/Vol] 14.1 g/dL Normal 13.0-17.0 [facility] Comment on above: Performed By: #### Emir BCA, 18020-0, CMP, 3040-3, 36394-9, - #### [facility] ([id number]) [address] [place] [address] 58161 Lymphocytes (Bld) [#/Vol] 0.4 10*3/uL Low 1.0-3.5 [facility] Comment on above: Performed By: #### Emir CAMPOS, 31550-3, CMP, 3040-3, 12175-0, - #### [facility] ([id number]) [address] [place] [address] 00348 Lymphocytes/100 WBC (Bld) 4.7 % Normal [facility] Comment on above: Performed By: #### C BCA, 76149-5, CMP, 3040-3, 64488-4, 45185- #### [facility] ([id number]) [address] [place] [address] 40328 MCH (RBC) [Entitic mass] 27.5 pg Normal 27-34 [facility] Comment on above: Performed By: #### Emir BCA, 33449-3, CMP, 3040-3, 32968-0, 33948- 9 #### [facility] ([id number]) [address] [place] [address] 78966 MCHC (RBC) [Mass/Vol] 35.0 g/dL Normal 32-36 [facility] Comment on above: Performed By: #### C BETH, 29164-3, CMP, 3040-3, 56673-9, 27141- 9 #### [facility] ([id number]) [address] [place] [address] 67483 MCV (RBC) [Entitic vol] 79 fL Low 80-100 [facility] Comment on above: Performed By: #### C BETH, 67930-5, CMP, 3040-3, 98863-1, 20733- 9 #### [facility] ([id number]) [address] [place] [address] 32097 Monocytes (Bld) [#/Vol] 0.7 10*3/uL Normal 0-0.9 [facility] Comment on above: Performed By: #### Emir CAMPOS, 39517-4, CMP, 3040-3, 75598-6, 84738- 9 #### [facility] ([id number]) [address] [place] [address] 27921 Monocytes/100 WBC (Bld) 7.9 % Normal [facility] Comment on above: Performed By: #### C BCA, 52894-1, CMP, 3040-3, 11734-9, 37554- 9 #### [facility] ([id number]) [address] [place] [address] 05110 Neutrophils/100 WBC (Bld) 86.2 % Normal [facility] Comment on above: Performed By: #### C BCA, 98239-7, CMP, 3040-3, 15939-9, 63123- 9 #### [facility] ([id number]) [address] [place] [address] 54857 Platelet mean volume (Bld) [Entitic vol] 6.9 fL Low 7-12 [facility] Comment on above: Performed By: #### C BCA, 35990-8, CMP, 3040-3, 26491-4, 30356- 9 #### [facility] ([id number]) [address] [place], [place] [address] Platelets (Bld) [#/Vol] 345 10*3/uL Normal 150-450 [facility] Comment on above: Performed By: #### C BCA, 90896-8, CMP, 3040-3, 91694-3, 21209- 9 #### [facility] ([id number]) [address] [place], [place] [address] RBC COUNT 5.13 X10E12/L Normal 4.10-5.70 [facility] Comment on above: Performed By: #### C BCA, 49982-5, CMP, 3040-3, 42680-5, 15203- 9 #### [facility] ([id number]) [address] [place], [place] [address] WBC (Bld) [#/Vol] 9.3 10*3/uL Normal 4.0-11.0 [facility] Comment on above: Performed By: #### C BCA, 13146-1, CMP, 3040-3, 03164-7, 92930- 9 #### [facility] ([id number]) [address] [place], [place] [address] COMPREHENSIVE METABOLIC PANE Taj 11-02-2023 Albumin [Mass/Vol] 3.2 g/dL Normal 3.2-5.3 [facility] Comment on above: Performed By: #### C BCA, 33863-2, CMP, 3040-3, 96699-0, 61954- 9 #### [facility] ([id number]) [address] [place], [place] [address] ALP [Catalytic activity/Vol] 54 U/L Normal 39-130 [facility] Comment on above: Performed By: #### C BCA, 24673-8, CMP, 3040-3, 94395-0, 83819- 9 #### [facility] ([id number]) [address] [place] [address] 20115 ALT [Catalytic activity/Vol] 19 U/L Normal 0-40 [facility] Comment on above: Performed By: #### C BCA, 08754-4, CMP, 3040-3, 47541-9, 29142- 9 #### [facility] ([id number]) [address] [place] [address] 01102 Anion gap [Moles/Vol] 9 mmol/L Normal 5-15 [facility] Comment on above: Performed By: #### C BCA, 74385-0, CMP, 3040-3, 09749-2, 56157- 9 #### [facility] ([id number]) [address] [place] [address] 10992 AST [Catalytic activity/Vol] 24 U/L Normal 0-41 [facility] Comment on above: Performed By: #### C BCA, 22663-9, CMP, 3040-3, 11481-8, 30116- 9 #### [facility] ([id number]) [address] [place] [address] 11620 Bilirubin [Mass/Vol] 0.9 mg/dL Normal 0.3-1.2 [facility] Comment on above: Performed By: #### C BCA, 96432-9, CMP, 3040-3, 59269-5, 61433- 9 #### [facility] ([id number]) [address] [place] [address] 30467 Calcium [Mass/Vol] 8.3 mg/dL Low 8.5-10.5 [facility] Comment on above: Performed By: #### C BCA, 40022-0, CMP, 3040-3, 27594-0, 49787- 9 #### [facility] ([id number]) [address] [place] [address] 20061 Chloride [Moles/Vol] 99 mmol/L Normal 98-109 [facility] Comment on above: Performed By: #### C BCA, 79851-1, CMP, 3040-3, 91854-6, 68867- 9 #### [facility] ([id number]) [address] [place] [address] 14243 CO2 [Moles/Vol] 24 mmol/L Normal 22-32 [facility] Comment on above: Performed By: #### C BCA, 19379-9, CMP, 3040-3, 58634-2, 88265- 9 #### [facility] ([id number]) [address] [place] [address] 39839 Creatinine [Mass/Vol] 1.85 mg/dL High 0.70-1.20 [facility] Comment on above: Result Comment: METH OD TRACEABLE TO IDMS STANDARD Performed By: #### C BCA, 80336-3, CMP, 3040-3, 79682-9, 68606-2 #### [facility] ([id number]) [address] [place] [address] 52027 GFR/1.73 sq M.predicted among non-blacks MDRD (S/P/Bld) [Vol rate/Area] 35 mL/min/{1.73_m2} Low >59 [facility] Comment on above: Result Comment: Reported eGFR is based on the CKD-EPI 2020 equation that does not use a race coefficient. Performed By: #### C BCA, 59922-8, CMP, 3040-3, 60781-3, 12846-2 #### [facility] ([id number]) [address] [place] [address] 79986 Glucose [Mass/Vol] 118 mg/dL High 65-99 [facility] Comment on above: Performed By: #### C BCA, 35563-7, CMP, 3040-3, 87697-9, 92430- 9 #### [facility] ([id number]) [address] [place] [address] 92526 Potassium [Moles/Vol] 3.9 mmol/L Normal 3.5-5.0 [facility] Comment on above: Performed By: #### C BCA, 05274-8, CMP, 3040-3, 53585-5, 93277- 9 #### [facility] ([id number]) [address] [place] [address] 93312 Protein [Mass/Vol] 5.5 g/dL Low 6.0-8.0 [facility] Comment on above: Performed By: #### C BCA, 15020-8, CMP, 3040-3, 54194-1, 86882- 9 #### [facility] ([id number]) [address] [place] [address] 67776 Sodium [Moles/Vol] 132 mmol/L Low 134-146 [facility] Comment on above: Performed By: #### C BCA, 01460-2, CMP, 3040-3, 95664-9, 27363- 9 #### [facility] ([id number]) [address] [place] [address] 16295 Urea nitrogen [Mass/Vol] 30 mg/dL High 5-27 [facility] Comment on above: Performed By: #### C BCA, 28758-0, CMP, 3040-3, 01329-3, 55597- 9 #### [facility] ([id number]) [address] [place] [address] ABDOMEN AND PELVIS W CONT on [...] Licea MD on 11/02/2023 2:43 PM Normal [facility] LIPASEon 11-02-2023 Lipase [Catalytic activity/Vol] 45 U/L High 17-40 [facility] Comment on above: Performed By: #### C BCA, 15896-7, CMP, 3040-3, 82260-1, 41087- 9 #### [facility] ([id number]) [address] [place] [address] 06013 Lactate (P michelle) [Moles/Vol]o n 11-02-2023 LACTATE W/REFLEX 1.2 mmol/L Normal 0.4-2.0 [facility] Comment on above: Result Comment: Result did not trigger repeat Lactate, re-order if needed. Performed By: #### C BCA, 57183-0, CMP, 3040-3, 78912-0, 68664-2 #### [facility] ([id number]) [address] [place] [address] 00418 MAGNESIUMon 11-02-2023 Magnesium [Mass/Vol] 1.7 mg/dL Low 1.8-2.6 [facility] Comment on above: Performed By: #### C BCA, 51037-2, CMP, 3040-3, 26011-3, 46757- 9 #### [facility] ([id number]) [address] [place] [address] 55401 SARS/FLU A+B/RSV by NAAT/Mol ecularon 11-02-2023 SARS/FLU [...] operators who are performing tests using either [employer] or [employer] systems and is limited to laboratories that [...] specimen repeat. Fact Sheet for Healthcare Providers: https://www.fda.gov/me ritesh/039933/download Fact Sheet for Patients: https://www.fda.gov/me ritesh/011861/download Normal [facility] Comment on above: Performed By: #### C OVFLR #### [facility] ([id number]) [address] [place] [address] 08319 TROPONIN Ion 11-02-2023 Troponin I.cardiac [Mass/Vol] 0.07 ng/mL High 0.00-0.04 [facility] Comment on above: Result Comment: Concentrations greater than or equal to 0.05 ng/ml are considered elevated. Elevations of Troponin may be due to causes other than myocardial ischemia. Recommend serial Troponin testing be performed. Performed By: #### 1 0839-9 #### [facility] ([id number]) [address] [place] [address] 56878 Troponin I.cardiac [Mass/Vol] 0.07 ng/mL High 0.00-0.04 [facility] Comment on above: Result Comment: Concentrations greater than or equal to 0.05 ng/ml are considered elevated. Elevations of Troponin may be due to causes other than myocardial ischemia. Recommend serial Troponin testing be performed. Performed By: #### C BCA, 15139-9, CMP, 3040-3, 25135-3, 19901-6 #### [facility] ([id number]) [address] [place] [address] 03144 URN MACROSCOPIC NURon 2023 BILIRUBIN JUDY Negative Normal NEG [facility] Comment on above: Performed By: #### N UM #### [facility] ([id number]) [address] [place] [address] 46128 BLOOD/HGB JUDY Trace Abnormal NEG [facility] Comment on above: Performed By: #### N UM #### [facility] ([id number]) [address] [place] [address] 89599 GLUCOSE JUDY Negative Normal NEG [facility] Comment on above: Performed By: #### N UM #### [facility] ([id number]) [address] [place] [address] 03806 KETONES JUDY Negative Normal NEG [facility] Comment on above: Performed By: #### N UM #### [facility] ([id number]) [address] [place] [address] 23969 LEUKOCYTE ESTERASE JUDY Negative Normal NEG [facility] Comment on above: Performed By: #### N UM #### [facility] ([id number]) [address] [place] [address] 57674 NITRITE JUDY Negative Normal NEG [facility] Comment on above: Performed By: #### N UM #### [facility] ([id number]) [address] [place] [address] 24380 PH JUDY 5.5 Normal 5.0-8.5 [facility] Comment on above: Performed By: #### N UM #### [facility] ([id number]) [address] [place] [address] 70209 PROTEIN JUDY Negative Normal NEG [facility] Comment on above: Performed By: #### N UM #### [facility] ([id number]) [address] [place] [address] 52547 SPECIFIC GRAVITY JUDY <=1.005 Normal 1.003-1.035 [facility] Comment on above: Performed By: #### N UM #### [facility] ([id number]) [address] [place] [address] 37598 UROBILINOGEN JUDY 0.2 eu/dL Normal <1.1 [facility] Comment on above: Performed By: #### N UM #### [facility] ([id number]) [address] [place] [address] CNPNon 10-29-2023 CNPN Normal [facility] CBC W Auto Differential pane l (Bld)on 10-10-2023 Basophils (Bld) [#/Vol] 0.08 10*3/uL Normal <0.11 [facility] Comment on above: Order Comment: Speci men Type: BLOOD SPECIMENOrdering Facility: [facility] Address: [address] [place] [address] Performed By: #### 5 7021-8 ####[facility] LABCLIA [id number] [place] [address] Basophils/100 WBC (Bld) 1.0 % Normal [facility] Comment on above: Order Comment: Speci men Type: BLOOD SPECIMENOrdering Facility: [facility] Address: [address] [place] [address] Performed By: #### 5 7021-8 ####[facility] LABCLIA [id number] [place] [address] Differential cell count method Nom (Bld) Auto Normal [facility] Comment on above: Order Comment: Speci men Type: BLOOD SPECIMENOrdering Facility: [facility] Address: [address] [place] [address] Performed By: #### 5 7021-8 ####[facility] LABCLIA [id number] [place] [address] Eosinophils (Bld) [#/Vol] 0.14 10*3/uL Normal <0.46 [facility] Comment on above: Order Comment: Speci men Type: BLOOD SPECIMENOrdering Facility: [facility] Address: [address] [place] [address] Performed By: #### 5 7021-8 ####[facility] LABCLIA [id number] [place] [address] Eosinophils/100 WBC (Bld) 1.8 % Normal [facility] Comment on above: Order Comment: Speci men Type: BLOOD SPECIMENOrdering Facility: [facility] Address: [address] [place] [address] Performed By: #### 5 7021-8 ####[facility] LABCLIA [id number] [place] [address] Erythrocyte distribution width (RBC) [Ratio] 14.0 % Normal 11.5-15.0 [facility] Comment on above: Order Comment: Speci men Type: BLOOD SPECIMENOrdering Facility: [facility] Address: [address] [place] [address] Performed By: #### 5 7021-8 ####[facility] LABCLIA [id number] [place] [address] Hematocrit (Bld) [Volume fraction] 40.5 % Normal 39.0-51.0 [facility] Comment on above: Order Comment: Speci men Type: BLOOD SPECIMENOrdering Facility: [facility] Address: [address] [place] [address] Performed By: #### 5 7021-8 ####[facility] LABCLIA [id number] [place] [address] Hemoglobin (Bld) [Mass/Vol] 13.1 g/dL Normal 13.0-17.0 [facility] Comment on above: Order Comment: Speci men Type: BLOOD SPECIMENOrdering Facility: [facility] Address: [address] [place] [address] Performed By: #### 5 7021-8 ####[facility] LABCLIA [id number] [place] [address] Immature granulocytes (Bld) [#/Vol] 0.04 10*3/uL Normal <0.10 [facility] Comment on above: Order Comment: Speci men Type: BLOOD SPECIMENOrdering Facility: [facility] Address: [address] [place] [address] Performed By: #### 5 7021-8 ####[facility] LABCLIA [id number] [place] [address] Immature granulocytes/100 WBC (Bld) 0.5 % Normal [facility] Comment on above: Order Comment: Speci men Type: BLOOD SPECIMENOrdering Facility: [facility] Address: [address] [place] [address] Performed By: #### 5 7021-8 ####[facility] LABCLIA [id number] [place] [address] Lymphocytes (Bld) [#/Vol] 0.81 10*3/uL Low 1.00-4.00 [facility] Comment on above: Order Comment: Speci men Type: BLOOD SPECIMENOrdering Facility: [facility] Address: [address] [place] [address] Performed By: #### 5 7021-8 ####[facility] LABCLIA [id number] [place] [address] Lymphocytes/100 WBC (Bld) 10.3 % Normal [facility] Comment on above: Order Comment: Speci men Type: BLOOD SPECIMENOrdering Facility: [facility] Address: [address] [place] [address] Performed By: #### 5 7021-8 ####[facility] LABCLIA [id number] [place] [address] MCH (RBC) [Entitic mass] 27.8 pg Normal 26.0-34.0 [facility] Comment on above: Order Comment: Speci men Type: BLOOD SPECIMENOrdering Facility: [facility] Address: [address] [place] [address] Performed By: #### 5 7021-8 ####[facility] LABCLIA [id number] [place] [address] MCHC (RBC) [Mass/Vol] 32.3 g/dL Normal 30.5-36.0 [facility] Comment on above: Order Comment: Speci men Type: BLOOD SPECIMENOrdering Facility: [facility] Address: [address] [place] [address] Performed By: #### 5 7021-8 ####[facility] LABCLIA [id number] [place] [address] MCV (RBC) [Entitic vol] 85.8 fL Normal 80.0-100.0 [facility] Comment on above: Order Comment: Speci men Type: BLOOD SPECIMENOrdering Facility: [facility] Address: [address] [place] [address] Performed By: #### 5 7021-8 ####[facility] LABCLIA [id number] [place] [address] Monocytes (Bld) [#/Vol] 0.55 10*3/uL Normal <0.87 [facility] Comment on above: Order Comment: Speci men Type: BLOOD SPECIMENOrdering Facility: [facility] Address: [address] [place] [address] Performed By: #### 5 7021-8 ####[facility] LABCLIA [id number] [place] [address] Monocytes/100 WBC (Bld) 7.0 % Normal [facility] Comment on above: Order Comment: Speci men Type: BLOOD SPECIMENOrdering Facility: [facility] Address: [address] [place] [address] Performed By: #### 5 7021-8 ####[facility] LABCLIA [id number] [place] [address] Neutrophils (Bld) [#/Vol] 6.21 10*3/uL Normal 1.45-7.50 [facility] Comment on above: Order Comment: Speci men Type: BLOOD SPECIMENOrdering Facility: [facility] Address: [address] [place] [address] Performed By: #### 5 7021-8 ####[facility] LABCLIA [id number] [place] [address] Neutrophils/100 WBC (Bld) 79.4 % Normal [facility] Comment on above: Order Comment: Speci men Type: BLOOD SPECIMENOrdering Facility: [facility] Address: [address] [place] [address] Performed By: #### 5 7021-8 ####[facility] LABCLIA [id number] [place] [address] Nucleated RBC (Bld) [#/Vol] 10*3/uL Normal <0.01 [facility] Comment on above: Order Comment: Speci men Type: BLOOD SPECIMENOrdering Facility: [facility] Address: [address] [place] [address] Performed By: #### 5 7021-8 ####[facility] LABCLIA [id number] [place] [address] Nucleated RBC/100 WBC (Bld) [Ratio] 0.0 /100 WBC Normal [facility] Comment on above: Order Comment: Speci men Type: BLOOD SPECIMENOrdering Facility: [facility] Address: [address] [place] [address] Performed By: #### 5 7021-8 ####[facility] LABCLIA [id number] [place] [address] Platelet mean volume (Bld) [Entitic vol] 8.6 fL Low 9.0-12.7 [facility] Comment on above: Order Comment: Speci men Type: BLOOD SPECIMENOrdering Facility: [facility] Address: [address] [place] [address] Performed By: #### 5 7021-8 ####[facility] LABCLIA [id number] [place] [address] Platelets (Bld) [#/Vol] 253 10*3/uL Normal 150-400 [facility] Comment on above: Order Comment: Speci men Type: BLOOD SPECIMENOrdering Facility: [facility] Address: [address] [place] [address] Performed By: #### 5 7021-8 ####[facility] LABCLIA [id number] [place] [address] RBC (Bld) [#/Vol] 4.72 10*6/uL Normal 4.20-6.00 [facility] Comment on above: Order Comment: Speci men Type: BLOOD SPECIMENOrdering Facility: [facility] Address: [address] [place] [address] Performed By: #### 5 7021-8 ####[facility] LABCLIA [id number] [place] [address] WBC (Bld) [#/Vol] 7.83 10*3/uL Normal 3.70-11.00 [facility] Comment on above: Order Comment: Speci men Type: BLOOD SPECIMENOrdering Facility: [facility] Address: [address] [place] [address] Performed By: #### 5 7021-8 ####[facility] LABCLIA [id number] [place] [address] CNOVSPon 10-10-2023 CNOVSP Normal [facility] Comprehensive metabolic 2000 panelon 10-10-2023 Albumin [Mass/Vol] 4.0 g/dL Normal 3.9-4.9 [facility] Comment on above: Order Comment: Speci men Type: BLOOD SPECIMENOrdering Facility: [facility] Address: [address] [place] [address] Performed By: #### 2 4323-8 ####[facility] LABCLIA [id number] [place] [address] ALP [Catalytic activity/Vol] 75 U/L Normal 38-113 [facility] Comment on above: Order Comment: Speci men Type: BLOOD SPECIMENOrdering Facility: [facility] Address: [address] [place] [address] Performed By: #### 2 4323-8 ####[facility] LABCLIA [id number] [place] [address] ALT [Catalytic activity/Vol] 15 U/L Normal 10-54 [facility] Comment on above: Order Comment: Speci men Type: BLOOD SPECIMENOrdering Facility: [facility] Address: [address] [place] [address] Performed By: #### 2 4323-8 ####[facility] LABCLIA [id number] [place] [address] Anion gap [Moles/Vol] 8 mmol/L Low 9-18 [facility] Comment on above: Order Comment: Speci men Type: BLOOD SPECIMENOrdering Facility: [facility] Address: [address] [place] [address] Performed By: #### 2 4323-8 ####[facility] LABCLIA [id number] [place] [address] AST [Catalytic activity/Vol] 23 U/L Normal 14-40 [facility] Comment on above: Order Comment: Speci men Type: BLOOD SPECIMENOrdering Facility: [facility] Address: [address] [place] [address] Performed By: #### 2 4323-8 ####[facility] LABCLIA [id number] [place] [address] Bilirubin [Mass/Vol] 0.4 mg/dL Normal 0.2-1.3 [facility] Comment on above: Order Comment: Speci men Type: BLOOD SPECIMENOrdering Facility: [facility] Address: [address] [place] [address] Performed By: #### 2 4323-8 ####[facility] LABCLIA [id number] [place] [address] Calcium [Mass/Vol] 9.0 mg/dL Normal 8.5-10.2 [facility] Comment on above: Order Comment: Speci men Type: BLOOD SPECIMENOrdering Facility: [facility] Address: [address] [place] [address] Performed By: #### 2 4323-8 ####[facility] LABCLIA [id number] [place] [address] Chloride [Moles/Vol] 99 mmol/L Normal 97-105 [facility] Comment on above: Order Comment: Speci men Type: BLOOD SPECIMENOrdering Facility: [facility] Address: [address] [place] [address] Performed By: #### 2 4323-8 ####[facility] LABCLIA [id number] [place] [address] CO2 [Moles/Vol] 27 mmol/L Normal 22-30 [facility] Comment on above: Order Comment: Speci men Type: BLOOD SPECIMENOrdering Facility: [facility] Address: [address] [place] [address] Performed By: #### 2 4323-8 ####[facility] LABCLIA [id number] [place] [address] Creatinine [Mass/Vol] 1.78 mg/dL High 0.73-1.22 [facility] Comment on above: Order Comment: Speci men Type: BLOOD SPECIMENOrdering Facility: [facility] Address: [address] [place] [address] Performed By: #### 2 4323-8 ####[facility] LABCLIA [id number] [place] [address] Creatinine and Glomerular filtration rate.predicted panel (S/P/Bld) 37 mL/min/1.73m??? Low >=60 [facility] Comment on above: Order Comment: Speci men Type: BLOOD SPECIMENOrdering Facility: [facility] Address: [address] [place] [address] Result Comment: Viviana mated Glomerular Filtration Rate [...] actual GFR. Performed By: #### 2 4323-8 ####[facility] LABCLIA [id number] [place] [address] Glucose [Mass/Vol] 109 mg/dL High 74-99 [facility] Comment on above: Order Comment: Speci men Type: BLOOD SPECIMENOrdering Facility: [facility] Address: [address] [place], [place] [address] Result Comment: The [place] Diabetes Association (ADA) provides guidance for cutoff [...] Standards of Medical Care in Diabetes 2016, [place] [employer]. Diabetes Care. 2016.39(Suppl 1). Performed By: #### 2 4323-8 ####[facility] LABCLIA [id number] [place] [address] Potassium [Moles/Vol] 3.9 mmol/L Normal 3.7-5.1 [facility] Comment on above: Order Comment: Vero men Type: BLOOD SPECIMENOrdering Facility: [facility] Address: [address] [place], [place] [address] Performed By: #### 2 4323-8 ####[facility] LABCLIA [id number] [place] [address] Protein [Mass/Vol] 6.0 g/dL Low 6.3-8.0 [facility] Comment on above: Order Comment: Speci men Type: BLOOD SPECIMENOrdering Facility: [facility] Address: [address] [place], [place] [address] Performed By: #### 2 4323-8 ####[facility] LABCLIA [id number] [place] [address] Sodium [Moles/Vol] 134 mmol/L Low 136-144 [facility] Comment on above: Order Comment: Speci men Type: BLOOD SPECIMENOrdering Facility: [facility] Address: [address] [place] [address] Performed By: #### 2 4323-8 ####[facility] LABCLIA [id number] [place] [address] Urea nitrogen [Mass/Vol] 29 mg/dL High 9-24 [facility] Comment on above: Order Comment: Speci men Type: BLOOD SPECIMENOrdering Facility: [facility] Address: [address] [place] [address] Performed By: #### 2 4323-8 ####[facility] LABCLIA [id number] [place] [address] Beverly Chewdai-Celena 10-10-20 Cortisol [Mass/Vol] 8.6 ug/dL Normal 4.8-19.5 [facility] Comment on above: Order Comment: Speci men Type: BLOOD SPECIMENOrdering Facility: [facility] Address: [address] [place] [address] Result Comment: Prov ided reference range is from 6-10 AM sample collection time.Cortisol Reference Range: 6-10 AM = 4.8-19.5 ug/dL, 4-8 PM = 2.5-11.9 ug/dL Performed By: #### 2 143-6, 3016-3 ####[facility] LABCLIA [id number] [facility] [place] [address] [place] HbA1c (Bld)on 10-10-2023 Average glucose Estimated from glycated hemoglobin (Bld) [Mass/Vol] 105 mg/dL Normal [facility] Comment on above: Order Comment: Speci men Type: BLOOD SPECIMENOrdering Facility: [facility] Address: [address] [place] [address] Result Comment: eAG: (Estimated average glucose) is a calculated value from HgbA1c and is operations support representative of the average blood glucose level in the last 2-3 month period. Performed By: #### 5 5454-3 ####[facility] LABCLIA [id number] [place] [address] [place] HbA1c (Bld) [Mass fraction] 5.3 % Normal 4.3-5.6 [facility] Comment on above: Order Comment: Speci men Type: BLOOD SPECIMENOrdering Facility: [facility] Address: [address] [place] [address] Result Comment: [place] Diabetes Association guidelines indicate that patients with HgbA1c in the range 5.7-6.4% are at increased risk for development of diabetes, and intervention by lifestyle modification may be beneficial. HgbA1c greater or equal to 6.5% is considered diagnostic of diabetes. Performed By: #### 5 5454-3 ####[facility] LABCLIA [id number] [place] [address] [place] TSH SerPl-aCncon 10-10-2023 TSH Qn 2.900 m[IU]/L Normal 0.270-4.200 [facility] Comment on above: Order Comment: Speci men Type: BLOOD SPECIMENOrdering Facility: [facility] Address: [address] [place] [address] Performed By: #### 2 143-6, 3016-3 ####[facility] LABCLIA [id number] [place] [address] [place] CBC W Auto Differential pane l (Bld)on 09-19-2023 Basophils (Bld) [#/Vol] 0.05 10*3/uL Normal <0.11 [facility] Comment on above: Order Comment: Speci men Type: BLOOD SPECIMENOrdering Facility: [facility] Address: [address] [place] [address] Performed By: #### 5 7021-8 ####[facility] LABCLIA [id number] [place] [address] Basophils/100 WBC (Bld) 0.5 % Normal [facility] Comment on above: Order Comment: Speci men Type: BLOOD SPECIMENOrdering Facility: [facility] Address: [address] [place] [address] Performed By: #### 5 7021-8 ####[facility] LABCLIA [id number] [place] [address] Differential cell count method Nom (Bld) Auto Normal [facility] Comment on above: Order Comment: Speci men Type: BLOOD SPECIMENOrdering Facility: [facility] Address: [address] [place] [address] Performed By: #### 5 7021-8 ####[facility] LABCLIA [id number] [place] [address] Eosinophils (Bld) [#/Vol] 0.15 10*3/uL Normal <0.46 [facility] Comment on above: Order Comment: Speci men Type: BLOOD SPECIMENOrdering Facility: [facility] Address: [address] [place] [address] Performed By: #### 5 7021-8 ####[facility] LABCLIA [id number] [place] [address] Eosinophils/100 WBC (Bld) 1.6 % Normal [facility] Comment on above: Order Comment: Speci men Type: BLOOD SPECIMENOrdering Facility: [facility] Address: [address] [place] [address] Performed By: #### 5 7021-8 ####[facility] LABCLIA [id number] [place] [address] Erythrocyte distribution width (RBC) [Ratio] 14.2 % Normal 11.5-15.0 [facility] Comment on above: Order Comment: Speci men Type: BLOOD SPECIMENOrdering Facility: [facility] Address: [address] [place] [address] Performed By: #### 5 7021-8 ####[facility] LABCLIA [id number] [place] [address] Hematocrit (Bld) [Volume fraction] 38.0 % Low 39.0-51.0 [facility] Comment on above: Order Comment: Speci men Type: BLOOD SPECIMENOrdering Facility: [facility] Address: [address] [place] [address] Performed By: #### 5 7021-8 ####[facility] LABCLIA [id number] [place] [address] Hemoglobin (Bld) [Mass/Vol] 12.7 g/dL Low 13.0-17.0 [facility] Comment on above: Order Comment: Speci men Type: BLOOD SPECIMENOrdering Facility: [facility] Address: [address] [place] [address] Performed By: #### 5 7021-8 ####[facility] LABCLIA [id number] [place] [address] Immature granulocytes (Bld) [#/Vol] 0.05 10*3/uL Normal <0.10 [facility] Comment on above: Order Comment: Speci men Type: BLOOD SPECIMENOrdering Facility: [facility] Address: [address] [place] [address] Performed By: #### 5 7021-8 ####[facility] LABCLIA [id number] [place] [address] Immature granulocytes/100 WBC (Bld) 0.5 % Normal [facility] Comment on above: Order Comment: Speci men Type: BLOOD SPECIMENOrdering Facility: [facility] Address: [address] [place] [address] Performed By: #### 5 7021-8 ####[facility] LABCLIA [id number] [place] [address] Lymphocytes (Bld) [#/Vol] 0.47 10*3/uL Low 1.00-4.00 [facility] Comment on above: Order Comment: Speci men Type: BLOOD SPECIMENOrdering Facility: [facility] Address: [address] [place] [address] Performed By: #### 5 7021-8 ####[facility] LABCLIA [id number] [place] [address] Lymphocytes/100 WBC (Bld) 5.0 % Normal [facility] Comment on above: Order Comment: Speci men Type: BLOOD SPECIMENOrdering Facility: [facility] Address: [address] [place] [address] Performed By: #### 5 7021-8 ####[facility] LABCLIA [id number] [place] [address] MCH (RBC) [Entitic mass] 28.2 pg Normal 26.0-34.0 [facility] Comment on above: Order Comment: Speci men Type: BLOOD SPECIMENOrdering Facility: [facility] Address: [address] [place] [address] Performed By: #### 5 7021-8 ####[facility] LABCLIA [id number] [place] [address] MCHC (RBC) [Mass/Vol] 33.4 g/dL Normal 30.5-36.0 [facility] Comment on above: Order Comment: Speci men Type: BLOOD SPECIMENOrdering Facility: [facility] Address: [address] [place] [address] Performed By: #### 5 7021-8 ####[facility] LABCLIA [id number] [place] [address] MCV (RBC) [Entitic vol] 84.3 fL Normal 80.0-100.0 [facility] Comment on above: Order Comment: Speci men Type: BLOOD SPECIMENOrdering Facility: [facility] Address: [address] [place] [address] Performed By: #### 5 7021-8 ####[facility] LABCLIA [id number] [place] [address] Monocytes (Bld) [#/Vol] 0.58 10*3/uL Normal <0.87 [facility] Comment on above: Order Comment: Speci men Type: BLOOD SPECIMENOrdering Facility: [facility] Address: [address] [place] [address] Performed By: #### 5 7021-8 ####[facility] LABCLIA [id number] [place] [address] Monocytes/100 WBC (Bld) 6.2 % Normal [facility] Comment on above: Order Comment: Speci men Type: BLOOD SPECIMENOrdering Facility: [facility] Address: [address] [place] [address] Performed By: #### 5 7021-8 ####[facility] LABCLIA [id number] [place] [address] Neutrophils (Bld) [#/Vol] 8.05 10*3/uL High 1.45-7.50 [facility] Comment on above: Order Comment: Speci men Type: BLOOD SPECIMENOrdering Facility: [facility] Address: [address] [place] [address] Performed By: #### 5 7021-8 ####[facility] LABCLIA [id number] [place] [address] Neutrophils/100 WBC (Bld) 86.2 % Normal [facility] Comment on above: Order Comment: Speci men Type: BLOOD SPECIMENOrdering Facility: [facility] Address: [address] [place] [address] Performed By: #### 5 7021-8 ####[facility] LABCLIA [id number] [place] [address] Nucleated RBC (Bld) [#/Vol] 10*3/uL Normal <0.01 [facility] Comment on above: Order Comment: Speci men Type: BLOOD SPECIMENOrdering Facility: [facility] Address: [address] [place] [address] Performed By: #### 5 7021-8 ####[facility] LABCLIA [id number] [place] [address] Nucleated RBC/100 WBC (Bld) [Ratio] 0.0 /100 WBC Normal [facility] Comment on above: Order Comment: Speci men Type: BLOOD SPECIMENOrdering Facility: [facility] Address: [address] [place] [address] Performed By: #### 5 7021-8 ####[facility] LABCLIA [id number] [place] [address] Platelet mean volume (Bld) [Entitic vol] 9.4 fL Normal 9.0-12.7 [facility] Comment on above: Order Comment: Speci men Type: BLOOD SPECIMENOrdering Facility: [facility] Address: [address] [place] [address] Performed By: #### 5 7021-8 ####[facility] LABCLIA [id number] [place] [address] Platelets (Bld) [#/Vol] 156 10*3/uL Normal 150-400 [facility] Comment on above: Order Comment: Speci men Type: BLOOD SPECIMENOrdering Facility: [facility] Address: [address] [place] [address] Performed By: #### 5 7021-8 ####[facility] LABCLIA [id number] [place] [address] RBC (Bld) [#/Vol] 4.51 10*6/uL Normal 4.20-6.00 [facility] Comment on above: Order Comment: Speci men Type: BLOOD SPECIMENOrdering Facility: [facility] Address: [address] [place] [address] Performed By: #### 5 7021-8 ####[facility] LABCLIA [id number] [place] [address] WBC (Bld) [#/Vol] 9.35 10*3/uL Normal 3.70-11.00 [facility] Comment on above: Order Comment: Speci men Type: BLOOD SPECIMENOrdering Facility: [facility] Address: [address] [place] [address] Performed By: #### 5 7021-8 ####[facility] LABCLIA [id number] [place] [address] CNOVSPon 09-19-2023 CNOVSP Normal [facility] Comprehensive metabolic 2000 panelon 09-19-2023 Albumin [Mass/Vol] 3.6 g/dL Low 3.9-4.9 [facility] Comment on above: Order Comment: Speci men Type: BLOOD SPECIMENOrdering Facility: [facility] Address: [address] [place] [address] Performed By: #### 2 4323-8 ####[facility] LABCLIA [id number] [place] [address] ALP [Catalytic activity/Vol] 63 U/L Normal 38-113 [facility] Comment on above: Order Comment: Speci men Type: BLOOD SPECIMENOrdering Facility: [facility] Address: [address] [place] [address] Performed By: #### 2 4323-8 ####[facility] LABCLIA [id number] [place] [address] ALT [Catalytic activity/Vol] 18 U/L Normal 10-54 [facility] Comment on above: Order Comment: Speci men Type: BLOOD SPECIMENOrdering Facility: [facility] Address: [address] [place] [address] Performed By: #### 2 4323-8 ####[facility] LABCLIA [id number] [place] [address] Anion gap [Moles/Vol] 8 mmol/L Low 9-18 [facility] Comment on above: Order Comment: Speci men Type: BLOOD SPECIMENOrdering Facility: [facility] Address: [address] [place] [address] Performed By: #### 2 4323-8 ####[facility] LABCLIA [id number] [place] [address] AST [Catalytic activity/Vol] 19 U/L Normal 14-40 [facility] Comment on above: Order Comment: Speci men Type: BLOOD SPECIMENOrdering Facility: [facility] Address: [address] [place] [address] Performed By: #### 2 4323-8 ####[facility] LABCLIA [id number] [place] [address] Bilirubin [Mass/Vol] 0.7 mg/dL Normal 0.2-1.3 [facility] Comment on above: Order Comment: Speci men Type: BLOOD SPECIMENOrdering Facility: [facility] Address: [address] [place] [address] Performed By: #### 2 4323-8 ####[facility] LABCLIA [id number] [place] [address] Calcium [Mass/Vol] 8.7 mg/dL Normal 8.5-10.2 [facility] Comment on above: Order Comment: Speci men Type: BLOOD SPECIMENOrdering Facility: [facility] Address: [address] [place] [address] Performed By: #### 2 4323-8 ####[facility] LABCLIA [id number] [place] [address] Chloride [Moles/Vol] 105 mmol/L Normal 97-105 [facility] Comment on above: Order Comment: Speci men Type: BLOOD SPECIMENOrdering Facility: [facility] Address: [address] [place] [address] Performed By: #### 2 4323-8 ####[facility] LABCLIA [id number] [place] [address] CO2 [Moles/Vol] 28 mmol/L Normal 22-30 [facility] Comment on above: Order Comment: Speci men Type: BLOOD SPECIMENOrdering Facility: [facility] Address: [address] [place] [address] Performed By: #### 2 4323-8 ####[facility] LABCLIA [id number] [place] [address] Creatinine [Mass/Vol] 1.84 mg/dL High 0.73-1.22 [facility] Comment on above: Order Comment: Vero barton Type: BLOOD SPECIMENOrdering Facility: [facility] Address: [address] [place] [address] Performed By: #### 2 4323-8 ####[facility] LABCLIA [id number] [place] [address] Creatinine and Glomerular filtration rate.predicted panel (S/P/Bld) 36 mL/min/1.73m??? Low >=60 [facility] Comment on above: Order Comment: Vero barton Type: BLOOD SPECIMENOrdering Facility: [facility] Address: [address] [place] [address] Result Comment: Viviana mated Glomerular Filtration Rate [...] actual GFR. Performed By: #### 2 4323-8 ####[facility] LABCLIA [id number] [place] [address] Glucose [Mass/Vol] 106 mg/dL High 74-99 [facility] Comment on above: Order Comment: Vero barton Type: BLOOD SPECIMENOrdering Facility: [facility] Address: [address] [place] [address] Result Comment: The [place] Diabetes Association (ADA) provides guidance for cutoff [...] Standards of Medical Care in Diabetes 2016, [place] [employer]. Diabetes Care. 2016.39(Suppl 1). Performed By: #### 2 4323-8 ####[facility] LABCLIA [id number] [place] [address] Potassium [Moles/Vol] 3.7 mmol/L Normal 3.7-5.1 [facility] Comment on above: Order Comment: Speci men Type: BLOOD SPECIMENOrdering Facility: [facility] Address: [address] [place] [address] Performed By: #### 2 4323-8 ####[facility] LABCLIA [id number] [place] [address] Protein [Mass/Vol] 5.4 g/dL Low 6.3-8.0 [facility] Comment on above: Order Comment: Speci men Type: BLOOD SPECIMENOrdering Facility: [facility] Address: [address] [place] [address] Performed By: #### 2 4323-8 ####[facility] LABCLIA [id number] [place] [address] Sodium [Moles/Vol] 141 mmol/L Normal 136-144 [facility] Comment on above: Order Comment: Speci men Type: BLOOD SPECIMENOrdering Facility: [facility] Address: [address] [place] [address] Performed By: #### 2 4323-8 ####[facility] LABCLIA [id number] [place] [address] Urea nitrogen [Mass/Vol] 38 mg/dL High 9-24 [facility] Comment on above: Order Comment: Speci men Type: BLOOD SPECIMENOrdering Facility: [facility] Address: [address] [place] [address] Performed By: #### 2 4323-8 ####[facility] LABCLIA [id number] [place] [address] Cortshaye Koheler 09-19-20 23 Cortisol [Mass/Vol] 9.8 ug/dL Normal 4.8-19.5 [facility] Comment on above: Order Comment: Farrahi oralia Type: BLOOD SPECIMENOrdering Facility: [facility] Address: [address] [place] [address] Result Comment: Prov ided reference range is from 6-10 AM sample collection time.Cortisol Reference Range: 6-10 AM = 4.8-19.5 ug/dL, 4-8 PM = 2.5-11.9 ug/dL Performed By: #### 2 143-6, 3016-3 ####[facility] LABCLIA [id number] [address] [place] HbA1c (Bld)on 09-19-2023 Average glucose Estimated from glycated hemoglobin (Bld) [Mass/Vol] 108 mg/dL Normal [facility] Comment on above: Order Comment: Vero oralia Type: BLOOD SPECIMENOrdering Facility: [facility] Address: [address] [place] [address] Result Comment: eAG: (Estimated average glucose) is a calculated value from HgbA1c and is operations support representative of the average blood glucose level in the last 2-3 month period. Performed By: #### 5 5454-3 ####[facility] LABCLIA [id number] [address] [place] [facility] HbA1c (Bld) [Mass fraction] 5.4 % Normal 4.3-5.6 [facility] Comment on above: Order Comment: Farrahronnie barton Type: BLOOD SPECIMENOrdering Facility: [facility] Address: [address] [place] [address] Result Comment: [place] Diabetes Association guidelines indicate that patients with HgbA1c in the range 5.7-6.4% are at increased risk for development of diabetes, and intervention by lifestyle modification may be beneficial. HgbA1c greater or equal to 6.5% is considered diagnostic of diabetes. Performed By: #### 5 5454-3 ####[facility] LABCLIA [id number] [address] [place] TSH SerPl-aCncon 09-19-2023 TSH Qn 2.080 m[IU]/L Normal 0.270-4.200 [facility] Comment on above: Order Comment: Speci men Type: BLOOD SPECIMENOrdering Facility: [facility] Address: [address] [place] [address] Performed By: #### 2 143-6, 3016-3 ####[facility] LABCLIA [id number] [facility] [place] [address] [place] CBC W Auto Differential pane l (Bld)on 08-29-2023 Basophils (Bld) [#/Vol] 0.06 10*3/uL Normal <0.11 [facility] Comment on above: Order Comment: Speci men Type: BLOOD SPECIMENOrdering Facility: [facility] Address: [address] [place] [address] Performed By: #### 5 7021-8 ####[facility] LABCLIA [id number] [place] [address] Basophils/100 WBC (Bld) 0.9 % Normal [facility] Comment on above: Order Comment: Speci men Type: BLOOD SPECIMENOrdering Facility: [facility] Address: [address] [place] [address] Performed By: #### 5 7021-8 ####[facility] LABCLIA [id number] [place] [address] Differential cell count method Nom (Bld) Auto Normal [facility] Comment on above: Order Comment: Speci men Type: BLOOD SPECIMENOrdering Facility: [facility] Address: [address] [place] [address] Performed By: #### 5 7021-8 ####[facility] LABCLIA [id number] [place] [address] Eosinophils (Bld) [#/Vol] 0.25 10*3/uL Normal <0.46 [facility] Comment on above: Order Comment: Speci men Type: BLOOD SPECIMENOrdering Facility: [facility] Address: [address] [place] [address] Performed By: #### 5 7021-8 ####[facility] LABCLIA [id number] [place] [address] Eosinophils/100 WBC (Bld) 3.7 % Normal [facility] Comment on above: Order Comment: Speci men Type: BLOOD SPECIMENOrdering Facility: [facility] Address: [address] [place] [address] Performed By: #### 5 7021-8 ####[facility] LABCLIA [id number] [place] [address] Erythrocyte distribution width (RBC) [Ratio] 13.8 % Normal 11.5-15.0 [facility] Comment on above: Order Comment: Speci men Type: BLOOD SPECIMENOrdering Facility: [facility] Address: [address] [place] [address] Performed By: #### 5 7021-8 ####[facility] LABCLIA [id number] [place] [address] Hematocrit (Bld) [Volume fraction] 40.9 % Normal 39.0-51.0 [facility] Comment on above: Order Comment: Speci men Type: BLOOD SPECIMENOrdering Facility: [facility] Address: [address] [place] [address] Performed By: #### 5 7021-8 ####[facility] LABCLIA [id number] [place] [address] Hemoglobin (Bld) [Mass/Vol] 13.6 g/dL Normal 13.0-17.0 [facility] Comment on above: Order Comment: Speci men Type: BLOOD SPECIMENOrdering Facility: [facility] Address: [address] [place] [address] Performed By: #### 5 7021-8 ####[facility] LABCLIA [id number] [place] [address] Immature granulocytes (Bld) [#/Vol] 10*3/uL Normal <0.10 [facility] Comment on above: Order Comment: Speci men Type: BLOOD SPECIMENOrdering Facility: [facility] Address: [address] [place] [address] Performed By: #### 5 7021-8 ####[facility] LABCLIA [id number] [place] [address] Immature granulocytes/100 WBC (Bld) 0.3 % Normal [facility] Comment on above: Order Comment: Speci men Type: BLOOD SPECIMENOrdering Facility: [facility] Address: [address] [place] [address] Performed By: #### 5 7021-8 ####[facility] LABCLIA [id number] [place] [address] Lymphocytes (Bld) [#/Vol] 0.73 10*3/uL Low 1.00-4.00 [facility] Comment on above: Order Comment: Speci men Type: BLOOD SPECIMENOrdering Facility: [facility] Address: [address] [place] [address] Performed By: #### 5 7021-8 ####[facility] LABCLIA [id number] [place] [address] Lymphocytes/100 WBC (Bld) 10.9 % Normal [facility] Comment on above: Order Comment: Speci men Type: BLOOD SPECIMENOrdering Facility: [facility] Address: [address] [place] [address] Performed By: #### 5 7021-8 ####[facility] LABCLIA [id number] [place] [address] MCH (RBC) [Entitic mass] 28.0 pg Normal 26.0-34.0 [facility] Comment on above: Order Comment: Speci men Type: BLOOD SPECIMENOrdering Facility: [facility] Address: [address] [place] [address] Performed By: #### 5 7021-8 ####[facility] LABCLIA [id number] [place] [address] MCHC (RBC) [Mass/Vol] 33.3 g/dL Normal 30.5-36.0 [facility] Comment on above: Order Comment: Speci men Type: BLOOD SPECIMENOrdering Facility: [facility] Address: [address] [place] [address] Performed By: #### 5 7021-8 ####[facility] LABCLIA [id number] [place] [address] MCV (RBC) [Entitic vol] 84.2 fL Normal 80.0-100.0 [facility] Comment on above: Order Comment: Speci men Type: BLOOD SPECIMENOrdering Facility: [facility] Address: [address] [place] [address] Performed By: #### 5 7021-8 ####[facility] LABCLIA [id number] [place] [address] Monocytes (Bld) [#/Vol] 0.36 10*3/uL Normal <0.87 [facility] Comment on above: Order Comment: Speci men Type: BLOOD SPECIMENOrdering Facility: [facility] Address: [address] [place] [address] Performed By: #### 5 7021-8 ####[facility] LABCLIA [id number] [place] [address] Monocytes/100 WBC (Bld) 5.4 % Normal [facility] Comment on above: Order Comment: Speci men Type: BLOOD SPECIMENOrdering Facility: [facility] Address: [address] [place] [address] Performed By: #### 5 7021-8 ####[facility] LABCLIA [id number] [place] [address] Neutrophils (Bld) [#/Vol] 5.28 10*3/uL Normal 1.45-7.50 [facility] Comment on above: Order Comment: Speci men Type: BLOOD SPECIMENOrdering Facility: [facility] Address: [address] [place] [address] Performed By: #### 5 7021-8 ####[facility] LABCLIA [id number] [place] [address] Neutrophils/100 WBC (Bld) 78.8 % Normal [facility] Comment on above: Order Comment: Speci men Type: BLOOD SPECIMENOrdering Facility: [facility] Address: [address] [place] [address] Performed By: #### 5 7021-8 ####[facility] LABCLIA [id number] [place] [address] Nucleated RBC (Bld) [#/Vol] 10*3/uL Normal <0.01 [facility] Comment on above: Order Comment: Speci men Type: BLOOD SPECIMENOrdering Facility: [facility] Address: [address] [place] [address] Performed By: #### 5 7021-8 ####[facility] LABCLIA [id number] [place] [address] Nucleated RBC/100 WBC (Bld) [Ratio] 0.0 /100 WBC Normal [facility] Comment on above: Order Comment: Speci men Type: BLOOD SPECIMENOrdering Facility: [facility] Address: [address] [place] [address] Performed By: #### 5 7021-8 ####[facility] LABIA [id number] [place] [address] Platelet mean volume (Bld) [Entitic vol] 9.1 fL Normal 9.0-12.7 [facility] Comment on above: Order Comment: Speci men Type: BLOOD SPECIMENOrdering Facility: [facility] Address: [address] [place] [address] Performed By: #### 5 7021-8 ####[facility] LABCLIA [id number] [place] [address] Platelets (Bld) [#/Vol] 224 10*3/uL Normal 150-400 [facility] Comment on above: Order Comment: Speci men Type: BLOOD SPECIMENOrdering Facility: [facility] Address: [address] [place] [address] Performed By: #### 5 7021-8 ####[facility] LABCLIA [id number] [place] [address] RBC (Bld) [#/Vol] 4.86 10*6/uL Normal 4.20-6.00 [facility] Comment on above: Order Comment: Speci men Type: BLOOD SPECIMENOrdering Facility: [facility] Address: [address] [place] [address] Performed By: #### 5 7021-8 ####[facility] LABIA [id number] [place] [address] WBC (Bld) [#/Vol] 6.70 10*3/uL Normal 3.70-11.00 [facility] Comment on above: Order Comment: Speci men Type: BLOOD SPECIMENOrdering Facility: [facility] Address: [address] [place] [address] Performed By: #### 5 7021-8 ####[facility] LABIA [id number] [place] [address] CNOVSPon 08-29-2023 CNOVSP Normal [facility] Comprehensive metabolic 2000 panelon 08-29-2023 Albumin [Mass/Vol] 4.2 g/dL Normal 3.9-4.9 [facility] Comment on above: Order Comment: Speci men Type: BLOOD SPECIMENOrdering Facility: [facility] Address: [address] [place] [address] Performed By: #### 2 4323-8 ####[facility] LABIA [id number] [place] [address] ALP [Catalytic activity/Vol] 79 U/L Normal 38-113 [facility] Comment on above: Order Comment: Speci men Type: BLOOD SPECIMENOrdering Facility: [facility] Address: [address] [place] [address] Performed By: #### 2 4323-8 ####[facility] LABCLIA [id number] [place] [address] ALT [Catalytic activity/Vol] 17 U/L Normal 10-54 [facility] Comment on above: Order Comment: Speci men Type: BLOOD SPECIMENOrdering Facility: [facility] Address: [address] [place] [address] Performed By: #### 2 4323-8 ####[facility] LABCLIA [id number] [place] [address] Anion gap [Moles/Vol] 7 mmol/L Low 9-18 [facility] Comment on above: Order Comment: Speci men Type: BLOOD SPECIMENOrdering Facility: [facility] Address: [address] [place] [address] Performed By: #### 2 4323-8 ####[facility] LABCLIA [id number] [place] [address] AST [Catalytic activity/Vol] 28 U/L Normal 14-40 [facility] Comment on above: Order Comment: Speci men Type: BLOOD SPECIMENOrdering Facility: [facility] Address: [address] [place] [address] Performed By: #### 2 4323-8 ####[facility] LABCLIA [id number] [place] [address] Bilirubin [Mass/Vol] 0.8 mg/dL Normal 0.2-1.3 [facility] Comment on above: Order Comment: Speci men Type: BLOOD SPECIMENOrdering Facility: [facility] Address: [address] [place] [address] Performed By: #### 2 4323-8 ####[facility] LABCLIA [id number] [place] [address] Calcium [Mass/Vol] 9.6 mg/dL Normal 8.5-10.2 [facility] Comment on above: Order Comment: Speci men Type: BLOOD SPECIMENOrdering Facility: [facility] Address: [address] [place] [address] Performed By: #### 2 4323-8 ####[facility] LABCLIA [id number] [place] [address] Chloride [Moles/Vol] 102 mmol/L Normal 97-105 [facility] Comment on above: Order Comment: Speci men Type: BLOOD SPECIMENOrdering Facility: [facility] Address: [address] [place] [address] Performed By: #### 2 4323-8 ####[facility] LABCLIA [id number] [place] [address] CO2 [Moles/Vol] 28 mmol/L Normal 22-30 [facility] Comment on above: Order Comment: Speci men Type: BLOOD SPECIMENOrdering Facility: [facility] Address: [address] [place] [address] Performed By: #### 2 4323-8 ####[facility] LABCLIA [id number] [place] [address] Creatinine [Mass/Vol] 2.02 mg/dL High 0.73-1.22 [facility] Comment on above: Order Comment: Speci men Type: BLOOD SPECIMENOrdering Facility: [facility] Address: [address] [place] [address] Performed By: #### 2 4323-8 ####[facility] LABCLIA [id number] [place] [address] Creatinine and Glomerular filtration rate.predicted panel (S/P/Bld) 32 mL/min/1.73m??? Low >=60 [facility] Comment on above: Order Comment: Speci men Type: BLOOD SPECIMENOrdering Facility: [facility] Address: [address] [place] [address] Result Comment: Viviana mated Glomerular Filtration Rate [...] actual GFR. Performed By: #### 2 4323-8 ####[facility] LABCLIA [id number] [place] [address] Glucose [Mass/Vol] 116 mg/dL High 74-99 [facility] Comment on above: Order Comment: Speci men Type: BLOOD SPECIMENOrdering Facility: [facility] Address: [address] [place] [address] Result Comment: The [place] Diabetes [employer] (ADA) provides guidance for cutoff [...] Standards of Medical Care in Diabetes 2016, [place] [employer]. Diabetes Care. 2016.39(Suppl 1). Performed By: #### 2 4323-8 ####[facility] LABCLIA [id number] [place] [address] Potassium [Moles/Vol] 4.1 mmol/L Normal 3.7-5.1 [facility] Comment on above: Order Comment: Speci men Type: BLOOD SPECIMENOrdering Facility: [facility] Address: [address] [place] [address] Performed By: #### 2 4323-8 ####[facility] LABCLIA [id number] [place] [address] Protein [Mass/Vol] 6.1 g/dL Low 6.3-8.0 [facility] Comment on above: Order Comment: Speci men Type: BLOOD SPECIMENOrdering Facility: [facility] Address: [address] [place] [address] Performed By: #### 2 4323-8 ####[facility] LABCLIA [id number] [place] [address] Sodium [Moles/Vol] 137 mmol/L Normal 136-144 [facility] Comment on above: Order Comment: Speci men Type: BLOOD SPECIMENOrdering Facility: [facility] Address: [address] [place] [address] Performed By: #### 2 4323-8 ####[facility] LABCLIA [id number] [place] [address] Urea nitrogen [Mass/Vol] 23 mg/dL Normal 9-24 [facility] Comment on above: Order Comment: Speci men Type: BLOOD SPECIMENOrdering Facility: [facility] Address: [address] [place] [address] Performed By: #### 2 4323-8 ####[facility] LABCLIA [id number] [place] [address] Cortis SerPl-kimberlyon 08-29-20 23 Cortisol [Mass/Vol] 7.9 ug/dL Normal 4.8-19.5 [facility] Comment on above: Order Comment: Speci men Type: BLOOD SPECIMENOrdering Facility: [facility] Address: [address] [place] [address] Result Comment: Prov ided reference range is from 6-10 AM sample collection time.Cortisol Reference Range: 6-10 AM = 4.8-19.5 ug/dL, 4-8 PM = 2.5-11.9 ug/dL Performed By: #### 2 143-6, 3016-3 ####[facility] LABCLIA [id number] [place] [address] [place] HbA1c (Bld)on 08-29-2023 Average glucose Estimated from glycated hemoglobin (Bld) [Mass/Vol] 100 mg/dL Normal [facility] Comment on above: Order Comment: Speci men Type: BLOOD SPECIMENOrdering Facility: [facility] Address: [place] [address] Result Comment: eAG: (Estimated average glucose) is a calculated value from HgbA1c and is operations support representative of the average blood glucose level in the last 2-3 month period. Performed By: #### 5 5454-3 ####[facility] LABCLIA [id number] [place] [address] [place] HbA1c (Bld) [Mass fraction] 5.1 % Normal 4.3-5.6 [facility] Comment on above: Order Comment: Vero barton Type: BLOOD SPECIMENOrdering Facility: [facility] Address: [address] [place] [address] Result Comment: [place] Diabetes Association guidelines indicate that patients with HgbA1c in the range 5.7-6.4% are at increased risk for development of diabetes, and intervention by lifestyle modification may be beneficial. HgbA1c greater or equal to 6.5% is considered diagnostic of diabetes. Performed By: #### 5 5454-3 ####[facility] LABCLIA [id number] [place] [address] [place] TSH SerPl-aCncon 08-29-2023 TSH Qn 3.500 m[IU]/L Normal 0.270-4.200 [facility] Comment on above: Order Comment: Vero barton Type: BLOOD SPECIMENOrdering Facility: [facility] Address: [place] [address] Performed By: #### 2 143-6, 3016-3 ####[facility] LABIA [id number] [place] [id number] [place] CT ABD/PEL W IVCONon 023 CT ABD/PEL W IVCON Normal [facility] CT CHEST W IVCONon [address] CHEST W IVCON Normal [facility] Office Visiton 08-20-2023 Follow-up visit [id number] Juan Jose Austin 1940 M Date Provider Department Center 08/20/2023 JIMBO [facility] CARD [facility] Family History Problem Relation Age of Onset Heart failure Mother Family Status - Relation Status Age at Mother Level of Service:08751 SD PHYS/QHP TELEPHONE EVALUATION 11-20 MIN Normal [facility] CBC W Auto Differential pane l (Bld)on 08-08-2023 Basophils (Bld) [#/Vol] 0.05 10*3/uL Normal <0.11 [facility] Comment on above: Order Comment: Speci men Type: BLOOD SPECIMENOrdering Facility: [facility] Address: [address] [place] [address] Performed By: #### 5 7021-8 ####[facility] LABCLIA [id number] [place] [address] Basophils/100 WBC (Bld) 0.8 % Normal [facility] Comment on above: Order Comment: Speci men Type: BLOOD SPECIMENOrdering Facility: [facility] Address: [address] [place] [address] Performed By: #### 5 7021-8 ####[facility] LABCLIA [id number] [place] [address] Differential cell count method Nom (Bld) Auto Normal [facility] Comment on above: Order Comment: Speci men Type: BLOOD SPECIMENOrdering Facility: [facility] Address: [address] [place] [address] Performed By: #### 5 7021-8 ####[facility] LABCLIA [id number] [place] [address] Eosinophils (Bld) [#/Vol] 0.23 10*3/uL Normal <0.46 [facility] Comment on above: Order Comment: Speci men Type: BLOOD SPECIMENOrdering Facility: [facility] Address: [address] [place] [address] Performed By: #### 5 7021-8 ####[facility] LABCLIA [id number] [place] [address] Eosinophils/100 WBC (Bld) 3.6 % Normal [facility] Comment on above: Order Comment: Speci men Type: BLOOD SPECIMENOrdering Facility: [facility] Address: [address] [place] [address] Performed By: #### 5 7021-8 ####[facility] LABCLIA [id number] [place] [address] Erythrocyte distribution width (RBC) [Ratio] 14.0 % Normal 11.5-15.0 [facility] Comment on above: Order Comment: Speci men Type: BLOOD SPECIMENOrdering Facility: [facility] Address: [address] [place] [address] Performed By: #### 5 7021-8 ####[facility] LABCLIA [id number] [place] [address] Hematocrit (Bld) [Volume fraction] 39.4 % Normal 39.0-51.0 [facility] Comment on above: Order Comment: Speci men Type: BLOOD SPECIMENOrdering Facility: [facility] Address: [address] [place] [address] Performed By: #### 5 7021-8 ####[facility] LABCLIA [id number] [place] [address] Hemoglobin (Bld) [Mass/Vol] 13.4 g/dL Normal 13.0-17.0 [facility] Comment on above: Order Comment: Speci men Type: BLOOD SPECIMENOrdering Facility: [facility] Address: [address] [place] [address] Performed By: #### 5 7021-8 ####[facility] LABCLIA [id number] [place] [address] Immature granulocytes (Bld) [#/Vol] 10*3/uL Normal <0.10 [facility] Comment on above: Order Comment: Speci men Type: BLOOD SPECIMENOrdering Facility: [facility] Address: [address] [place] [address] Performed By: #### 5 7021-8 ####[facility] LABCLIA [id number] [place] [address] Immature granulocytes/100 WBC (Bld) 0.3 % Normal [facility] Comment on above: Order Comment: Speci men Type: BLOOD SPECIMENOrdering Facility: [facility] Address: [address] [place] [address] Performed By: #### 5 7021-8 ####[facility] LABCLIA [id number] [place] [address] Lymphocytes (Bld) [#/Vol] 0.73 10*3/uL Low 1.00-4.00 [facility] Comment on above: Order Comment: Speci men Type: BLOOD SPECIMENOrdering Facility: [facility] Address: [address] [place] [address] Performed By: #### 5 7021-8 ####[facility] LABCLIA [id number] [place] [address] Lymphocytes/100 WBC (Bld) 11.5 % Normal [facility] Comment on above: Order Comment: Speci men Type: BLOOD SPECIMENOrdering Facility: [facility] Address: [address] [place] [address] Performed By: #### 5 7021-8 ####[facility] LABCLIA [id number] [place] [address] MCH (RBC) [Entitic mass] 28.5 pg Normal 26.0-34.0 [facility] Comment on above: Order Comment: Speci men Type: BLOOD SPECIMENOrdering Facility: [facility] Address: [address] [place] [address] Performed By: #### 5 7021-8 ####[facility] LABIA [id number] [place] [address] MCHC (RBC) [Mass/Vol] 34.0 g/dL Normal 30.5-36.0 [facility] Comment on above: Order Comment: Speci men Type: BLOOD SPECIMENOrdering Facility: [facility] Address: [address] [place] [address] Performed By: #### 5 7021-8 ####[facility] LABCLIA [id number] [place] [address] MCV (RBC) [Entitic vol] 83.7 fL Normal 80.0-100.0 [facility] Comment on above: Order Comment: Speci men Type: BLOOD SPECIMENOrdering Facility: [facility] Address: [address] [place] [address] Performed By: #### 5 7021-8 ####[facility] LABCLIA [id number] [place] [address] Monocytes (Bld) [#/Vol] 0.63 10*3/uL Normal <0.87 [facility] Comment on above: Order Comment: Speci men Type: BLOOD SPECIMENOrdering Facility: [facility] Address: [address] [place] [address] Performed By: #### 5 7021-8 ####[facility] LABCLIA [id number] [place] [address] Monocytes/100 WBC (Bld) 9.9 % Normal [facility] Comment on above: Order Comment: Speci men Type: BLOOD SPECIMENOrdering Facility: [facility] Address: [address] [place] [address] Performed By: #### 5 7021-8 ####[facility] LABCLIA [id number] [place] [address] Neutrophils (Bld) [#/Vol] 4.68 10*3/uL Normal 1.45-7.50 [facility] Comment on above: Order Comment: Speci men Type: BLOOD SPECIMENOrdering Facility: [facility] Address: [address] [place] [address] Performed By: #### 5 7021-8 ####[facility] LABCLIA [id number] [place] [address] Neutrophils/100 WBC (Bld) 73.9 % Normal [facility] Comment on above: Order Comment: Speci men Type: BLOOD SPECIMENOrdering Facility: [facility] Address: [address] [place] [address] Performed By: #### 5 7021-8 ####[facility] LABCLIA [id number] [place] [address] Nucleated RBC (Bld) [#/Vol] 10*3/uL Normal <0.01 [facility] Comment on above: Order Comment: Speci men Type: BLOOD SPECIMENOrdering Facility: [facility] Address: [address] [place] [address] Performed By: #### 5 7021-8 ####[facility] LABCLIA [id number] [place] [address] Nucleated RBC/100 WBC (Bld) [Ratio] 0.0 /100 WBC Normal [facility] Comment on above: Order Comment: Speci men Type: BLOOD SPECIMENOrdering Facility: [facility] Address: [address] [place] [address] Performed By: #### 5 7021-8 ####[facility] LABCLIA [id number] [place] [address] Platelet mean volume (Bld) [Entitic vol] 9.3 fL Normal 9.0-12.7 [facility] Comment on above: Order Comment: Speci men Type: BLOOD SPECIMENOrdering Facility: [facility] Address: [address] [place] [address] Performed By: #### 5 7021-8 ####[facility] LABCLIA [id number] [place] [address] Platelets (Bld) [#/Vol] 200 10*3/uL Normal 150-400 [facility] Comment on above: Order Comment: Speci men Type: BLOOD SPECIMENOrdering Facility: [facility] Address: [address] [place] [address] Performed By: #### 5 7021-8 ####[facility] LABCLIA [id number] [place] [address] RBC (Bld) [#/Vol] 4.71 10*6/uL Normal 4.20-6.00 [facility] Comment on above: Order Comment: Speci men Type: BLOOD SPECIMENOrdering Facility: [facility] Address: [address] [place] [address] Performed By: #### 5 7021-8 ####[facility] LABCLIA [id number] [place] [address] WBC (Bld) [#/Vol] 6.34 10*3/uL Normal 3.70-11.00 [facility] Comment on above: Order Comment: Speci men Type: BLOOD SPECIMENOrdering Facility: [facility] Address: [address] [place] [address] Performed By: #### 5 7021-8 ####[facility] LABCLIA [id number] [place] [address] CNPNon 08-08-2023 CNPN Normal [facility] Comprehensive metabolic 2000 panelon 08-08-2023 Albumin [Mass/Vol] 4.0 g/dL Normal 3.9-4.9 [facility] Comment on above: Order Comment: Speci men Type: BLOOD SPECIMENOrdering Facility: [facility] Address: [address] [place] [address] Performed By: #### 2 4323-8 ####[facility] LABCLIA [id number] [place] [address] ALP [Catalytic activity/Vol] 83 U/L Normal 38-113 [facility] Comment on above: Order Comment: Speci men Type: BLOOD SPECIMENOrdering Facility: [facility] Address: [address] [place] [address] Performed By: #### 2 4323-8 ####[facility] LABCLIA [id number] [place] [address] ALT [Catalytic activity/Vol] 14 U/L Normal 10-54 [facility] Comment on above: Order Comment: Speci men Type: BLOOD SPECIMENOrdering Facility: [facility] Address: [address] [place] [address] Performed By: #### 2 4323-8 ####[facility] LABCLIA [id number] [place] [address] Anion gap [Moles/Vol] 6 mmol/L Low 9-18 [facility] Comment on above: Order Comment: Speci men Type: BLOOD SPECIMENOrdering Facility: [facility] Address: [address] [place] [address] Performed By: #### 2 4323-8 ####[facility] LABCLIA [id number] [place] [address] AST [Catalytic activity/Vol] 21 U/L Normal 14-40 [facility] Comment on above: Order Comment: Speci men Type: BLOOD SPECIMENOrdering Facility: [facility] Address: [address] [place] [address] Performed By: #### 2 4323-8 ####[facility] LABCLIA [id number] [place] [address] Bilirubin [Mass/Vol] 0.7 mg/dL Normal 0.2-1.3 [facility] Comment on above: Order Comment: Speci men Type: BLOOD SPECIMENOrdering Facility: [facility] Address: [address] [place] [address] Performed By: #### 2 4323-8 ####[facility] LABCLIA [id number] [place] [address] Calcium [Mass/Vol] 8.7 mg/dL Normal 8.5-10.2 [facility] Comment on above: Order Comment: Speci men Type: BLOOD SPECIMENOrdering Facility: [facility] Address: [address] [place] [address] Performed By: #### 2 4323-8 ####[facility] LABCLIA [id number] [place] [address] Chloride [Moles/Vol] 106 mmol/L High 97-105 [facility] Comment on above: Order Comment: Speci men Type: BLOOD SPECIMENOrdering Facility: [facility] Address: [address] [place] [address] Performed By: #### 2 4323-8 ####[facility] LABCLIA [id number] [place] [address] CO2 [Moles/Vol] 25 mmol/L Normal 22-30 [facility] Comment on above: Order Comment: Speci men Type: BLOOD SPECIMENOrdering Facility: [facility] Address: [address] [place] [address] Performed By: #### 2 4323-8 ####[facility] LABCLIA [id number] [place] [address] Creatinine [Mass/Vol] 1.97 mg/dL High 0.73-1.22 [facility] Comment on above: Order Comment: Speci men Type: BLOOD SPECIMENOrdering Facility: [facility] Address: [address] [place] [address] Performed By: #### 2 4323-8 ####[facility] LABCLIA [id number] [place] [address] Creatinine and Glomerular filtration rate.predicted panel (S/P/Bld) 33 mL/min/1.73m??? Low >=60 [facility] Comment on above: Order Comment: Speci men Type: BLOOD SPECIMENOrdering Facility: [facility] Address: [address] [place] [address] Result Comment: Viviana mated Glomerular Filtration Rate [...] actual GFR. Performed By: #### 2 4323-8 ####[facility] LABCLIA [id number] [place] [address] Glucose [Mass/Vol] 105 mg/dL High 74-99 [facility] Comment on above: Order Comment: Speci men Type: BLOOD SPECIMENOrdering Facility: [facility] Address: [address] [place] [address] Result Comment: The [place] Diabetes Association (ADA) provides guidance for cutoff [...] Standards of Medical Care in Diabetes 2016, [place] [employer]. Diabetes Care. 2016.39(Suppl 1). Performed By: #### 2 4323-8 ####[facility] LABCLIA [id number] [place] [address] Potassium [Moles/Vol] 4.1 mmol/L Normal 3.7-5.1 [facility] Comment on above: Order Comment: Speci men Type: BLOOD SPECIMENOrdering Facility: [facility] Address: [address] [place] [address] Performed By: #### 2 4323-8 ####[facility] LABCLIA [id number] [place] [address] Protein [Mass/Vol] 6.0 g/dL Low 6.3-8.0 [facility] Comment on above: Order Comment: Speci men Type: BLOOD SPECIMENOrdering Facility: [facility] Address: [address] [place] [address] Performed By: #### 2 4323-8 ####[facility] LABCLIA [id number] [place] [address] Sodium [Moles/Vol] 137 mmol/L Normal 136-144 [facility] Comment on above: Order Comment: Speci men Type: BLOOD SPECIMENOrdering Facility: [facility] Address: [address] [place] [address] Performed By: #### 2 4323-8 ####[facility] LABCLIA [id number] [place] [address] Urea nitrogen [Mass/Vol] 23 mg/dL Normal 9-24 [facility] Comment on above: Order Comment: Speci men Type: BLOOD SPECIMENOrdering Facility: [facility] Address: [address] [place] [address] Performed By: #### 2 4323-8 ####[facility] LABCLIA [id number] [place] [address] [place] SerPl-Ricaon 08-08-20 23 Cortisol [Mass/Vol] 11.0 ug/dL Normal 4.8-19.5 [facility] Comment on above: Order Comment: Speci men Type: BLOOD SPECIMENOrdering Facility: [facility] Address: [address] [place] [address] Result Comment: Prov ided reference range is from 6-10 AM sample collection time.Cortisol Reference Range: 6-10 AM = 4.8-19.5 ug/dL, 4-8 PM = 2.5-11.9 ug/dL Performed By: #### 2 143-6, 3016-3 ####[facility] LABCLIA [id number] [facility] [id number] [id number] [place] HbA1c (Bld)on 08-08-2023 Average glucose Estimated from glycated hemoglobin (Bld) [Mass/Vol] 97 mg/dL Normal [facility] Comment on above: Order Comment: Speci men Type: BLOOD SPECIMENOrdering Facility: [facility] Address: [address] [place] [address] Result Comment: eAG: (Estimated average glucose) is a calculated value from HgbA1c and is operations support representative of the average blood glucose level in the last 2-3 month period. Performed By: #### 5 5454-3 ####[facility] LABCLIA [id number] [place] [address] [place] HbA1c (Bld) [Mass fraction] 5.0 % Normal 4.3-5.6 [facility] Comment on above: Order Comment: Speci men Type: BLOOD SPECIMENOrdering Facility: [facility] Address: [address] [place] [address] Result Comment: [place] Diabetes Association guidelines indicate that patients with HgbA1c in the range 5.7-6.4% are at increased risk for development of diabetes, and intervention by lifestyle modification may be beneficial. HgbA1c greater or equal to 6.5% is considered diagnostic of diabetes. Performed By: #### 5 5454-3 ####[facility] LABCLIA [id number] [place] [address] [place] TSH SerPl-aCncon 08-08-2023 TSH Qn 1.510 m[IU]/L Normal 0.270-4.200 [facility] Comment on above: Order Comment: Speci men Type: BLOOD SPECIMENOrdering Facility: [facility] Address: [address] [place] [address] Performed By: #### 2 143-6, 3016-3 ####[facility] LABCLIA [id number] [place] [address] [place] CBC W Auto Differential pane l (Bld)on 07-18-2023 Basophils (Bld) [#/Vol] 0.07 10*3/uL Normal <0.11 [facility] Comment on above: Order Comment: Speci men Type: BLOOD SPECIMENOrdering Facility: [facility] Address: [address] [place] [address] Performed By: #### 5 7021-8 ####[facility] LABCLIA [id number] [place] [address] Basophils/100 WBC (Bld) 1.0 % Normal [facility] Comment on above: Order Comment: Speci men Type: BLOOD SPECIMENOrdering Facility: [facility] Address: [address] [place] [address] Performed By: #### 5 7021-8 ####[facility] LABCLIA [id number] [place] [address] Differential cell count method Nom (Bld) Auto Normal [facility] Comment on above: Order Comment: Speci men Type: BLOOD SPECIMENOrdering Facility: [facility] Address: [address] [place] [address] Performed By: #### 5 7021-8 ####[facility] LABCLIA [id number] [place] [address] Eosinophils (Bld) [#/Vol] 0.23 10*3/uL Normal <0.46 [facility] Comment on above: Order Comment: Speci men Type: BLOOD SPECIMENOrdering Facility: [facility] Address: [address] [place] [address] Performed By: #### 5 7021-8 ####[facility] LABCLIA [id number] [place] [address] Eosinophils/100 WBC (Bld) 3.1 % Normal [facility] Comment on above: Order Comment: Speci men Type: BLOOD SPECIMENOrdering Facility: [facility] Address: [address] [place] [address] Performed By: #### 5 7021-8 ####[facility] LABCLIA [id number] [place] [address] Erythrocyte distribution width (RBC) [Ratio] 13.9 % Normal 11.5-15.0 [facility] Comment on above: Order Comment: Speci men Type: BLOOD SPECIMENOrdering Facility: [facility] Address: [address] [place] [address] Performed By: #### 5 7021-8 ####[facility] LABCLIA [id number] [place] [address] Hematocrit (Bld) [Volume fraction] 40.2 % Normal 39.0-51.0 [facility] Comment on above: Order Comment: Speci men Type: BLOOD SPECIMENOrdering Facility: [facility] Address: [address] [place] [address] Performed By: #### 5 7021-8 ####[facility] LABCLIA [id number] [place] [address] Hemoglobin (Bld) [Mass/Vol] 13.4 g/dL Normal 13.0-17.0 [facility] Comment on above: Order Comment: Speci men Type: BLOOD SPECIMENOrdering Facility: [facility] Address: [address] [place] [address] Performed By: #### 5 7021-8 ####[facility] LABCLIA [id number] [place] [address] Immature granulocytes (Bld) [#/Vol] 10*3/uL Normal <0.10 [facility] Comment on above: Order Comment: Speci men Type: BLOOD SPECIMENOrdering Facility: [facility] Address: [address] [place] [address] Performed By: #### 5 7021-8 ####[facility] LABCLIA [id number] [place] [address] Immature granulocytes/100 WBC (Bld) 0.3 % Normal [facility] Comment on above: Order Comment: Speci men Type: BLOOD SPECIMENOrdering Facility: [facility] Address: [address] [place] [address] Performed By: #### 5 7021-8 ####[facility] LABCLIA [id number] [place] [address] Lymphocytes (Bld) [#/Vol] 0.77 10*3/uL Low 1.00-4.00 [facility] Comment on above: Order Comment: Speci men Type: BLOOD SPECIMENOrdering Facility: [facility] Address: [address] [place] [address] Performed By: #### 5 7021-8 ####[facility] LABCLIA [id number] [place] [address] Lymphocytes/100 WBC (Bld) 10.5 % Normal [facility] Comment on above: Order Comment: Speci men Type: BLOOD SPECIMENOrdering Facility: [facility] Address: [address] [place] [address] Performed By: #### 5 7021-8 ####[facility] LABCLIA [id number] [place] [address] MCH (RBC) [Entitic mass] 28.2 pg Normal 26.0-34.0 [facility] Comment on above: Order Comment: Speci men Type: BLOOD SPECIMENOrdering Facility: [facility] Address: [address] [place] [address] Performed By: #### 5 7021-8 ####[facility] LABCLIA [id number] [place] [address] MCHC (RBC) [Mass/Vol] 33.3 g/dL Normal 30.5-36.0 [facility] Comment on above: Order Comment: Speci men Type: BLOOD SPECIMENOrdering Facility: [facility] Address: [address] [place] [address] Performed By: #### 5 7021-8 ####[facility] LABCLIA [id number] [place] [address] MCV (RBC) [Entitic vol] 84.5 fL Normal 80.0-100.0 [facility] Comment on above: Order Comment: Speci men Type: BLOOD SPECIMENOrdering Facility: [facility] Address: [address] [place] [address] Performed By: #### 5 7021-8 ####[facility] LABIA [id number] [place] [address] Monocytes (Bld) [#/Vol] 0.47 10*3/uL Normal <0.87 [facility] Comment on above: Order Comment: Speci men Type: BLOOD SPECIMENOrdering Facility: [facility] Address: [address] [place] [address] Performed By: #### 5 7021-8 ####[facility] LABCLIA [id number] [place] [address] Monocytes/100 WBC (Bld) 6.4 % Normal [facility] Comment on above: Order Comment: Speci men Type: BLOOD SPECIMENOrdering Facility: [facility] Address: [address] [place] [address] Performed By: #### 5 7021-8 ####[facility] LABCLIA [id number] [place] [address] Neutrophils (Bld) [#/Vol] 5.80 10*3/uL Normal 1.45-7.50 [facility] Comment on above: Order Comment: Speci men Type: BLOOD SPECIMENOrdering Facility: [facility] Address: [address] [place] [address] Performed By: #### 5 7021-8 ####[facility] LABCLIA [id number] [place] [address] Neutrophils/100 WBC (Bld) 78.7 % Normal [facility] Comment on above: Order Comment: Speci men Type: BLOOD SPECIMENOrdering Facility: [facility] Address: [address] [place] [address] Performed By: #### 5 7021-8 ####[facility] LABCLIA [id number] [place] [address] Nucleated RBC (Bld) [#/Vol] 10*3/uL Normal <0.01 [facility] Comment on above: Order Comment: Speci men Type: BLOOD SPECIMENOrdering Facility: [facility] Address: [address] [place] [address] Performed By: #### 5 7021-8 ####[facility] LABCLIA [id number] [place] [address] Nucleated RBC/100 WBC (Bld) [Ratio] 0.0 /100 WBC Normal [facility] Comment on above: Order Comment: Speci men Type: BLOOD SPECIMENOrdering Facility: [facility] Address: [address] [place] [address] Performed By: #### 5 7021-8 ####[facility] LABCLIA [id number] [place] [address] Platelet mean volume (Bld) [Entitic vol] 9.1 fL Normal 9.0-12.7 [facility] Comment on above: Order Comment: Speci men Type: BLOOD SPECIMENOrdering Facility: [facility] Address: [address] [place] [address] Performed By: #### 5 7021-8 ####[facility] LABCLIA [id number] [place] [address] Platelets (Bld) [#/Vol] 179 10*3/uL Normal 150-400 [facility] Comment on above: Order Comment: Speci men Type: BLOOD SPECIMENOrdering Facility: [facility] Address: [address] [place] [address] Performed By: #### 5 7021-8 ####[facility] LABCLIA [id number] [place] [address] RBC (Bld) [#/Vol] 4.76 10*6/uL Normal 4.20-6.00 [facility] Comment on above: Order Comment: Speci men Type: BLOOD SPECIMENOrdering Facility: [facility] Address: [address] [place] [address] Performed By: #### 5 7021-8 ####[facility] LABIA [id number] [place] [address] WBC (Bld) [#/Vol] 7.36 10*3/uL Normal 3.70-11.00 [facility] Comment on above: Order Comment: Speci men Type: BLOOD SPECIMENOrdering Facility: [facility] Address: [address] [place] [address] Performed By: #### 5 7021-8 ####[facility] LABCLIA [id number] [place] [address] CNOVSPon 07-18-2023 CNOVSP Normal [facility] metabolic 2000 panelon 07-18-2023 Albumin [Mass/Vol] 4.3 g/dL Normal 3.9-4.9 [facility] Comment on above: Order Comment: Speci men Type: BLOOD SPECIMENOrdering Facility: [facility] Address: [address] [place] [address] Performed By: #### 2 4323-8 ####[facility] LABCLIA [id number] [place] [address] ALP [Catalytic activity/Vol] 79 U/L Normal 38-113 [facility] Comment on above: Order Comment: Speci men Type: BLOOD SPECIMENOrdering Facility: [facility] Address: [address] [place] [address] Performed By: #### 2 4323-8 ####[facility] LABCLIA [id number] [place] [address] ALT [Catalytic activity/Vol] 17 U/L Normal 10-54 [facility] Comment on above: Order Comment: Speci men Type: BLOOD SPECIMENOrdering Facility: [facility] Address: [address] [place] [address] Performed By: #### 2 4323-8 ####[facility] LABCLIA [id number] [place] [address] Anion gap [Moles/Vol] 6 mmol/L Low 9-18 [facility] Comment on above: Order Comment: Speci men Type: BLOOD SPECIMENOrdering Facility: [facility] Address: [address] [place] [address] Performed By: #### 2 4323-8 ####[facility] LABCLIA [id number] [place] [address] AST [Catalytic activity/Vol] 24 U/L Normal 14-40 [facility] Comment on above: Order Comment: Speci men Type: BLOOD SPECIMENOrdering Facility: [facility] Address: [address] [place] [address] Performed By: #### 2 4323-8 ####[facility] LABCLIA [id number] [place] [address] Bilirubin [Mass/Vol] 0.5 mg/dL Normal 0.2-1.3 [facility] Comment on above: Order Comment: Speci men Type: BLOOD SPECIMENOrdering Facility: [facility] Address: [address] [place] [address] Performed By: #### 2 4323-8 ####[facility] LABCLIA [id number] [place] [address] Calcium [Mass/Vol] 9.1 mg/dL Normal 8.5-10.2 [facility] Comment on above: Order Comment: Speci men Type: BLOOD SPECIMENOrdering Facility: [facility] Address: [address] [place] [address] Performed By: #### 2 4323-8 ####[facility] LABCLIA [id number] [place] [address] Chloride [Moles/Vol] 107 mmol/L High 97-105 [facility] Comment on above: Order Comment: Speci men Type: BLOOD SPECIMENOrdering Facility: [facility] Address: [address] [place] [address] Performed By: #### 2 4323-8 ####[facility] LABCLIA [id number] [place] [address] CO2 [Moles/Vol] 27 mmol/L Normal 22-30 [facility] Comment on above: Order Comment: Speci men Type: BLOOD SPECIMENOrdering Facility: [facility] Address: [address] [place] [address] Performed By: #### 2 4323-8 ####[facility] LABCLIA [id number] [place] [address] Creatinine [Mass/Vol] 2.03 mg/dL High 0.73-1.22 [facility] Comment on above: Order Comment: Vero barton Type: BLOOD SPECIMENOrdering Facility: [facility] Address: [address] [place] [address] Performed By: #### 2 4323-8 ####[facility] LABCLIA [id number] [place] [address] Creatinine and Glomerular filtration rate.predicted panel (S/P/Bld) 32 mL/min/1.73m??? Low >=60 [facility] Comment on above: Order Comment: Vero barton Type: BLOOD SPECIMENOrdering Facility: [facility] Address: [address] [place] [address] Result Comment: Viviana mated Glomerular Filtration Rate [...] actual GFR. Performed By: #### 2 4323-8 ####[facility] LABCLIA [id number] [place] [address] Glucose [Mass/Vol] 104 mg/dL High 74-99 [facility] Comment on above: Order Comment: Vero barton Type: BLOOD SPECIMENOrdering Facility: [facility] Address: [address] [place] [address] Result Comment: The [place] Diabetes [employer] (ADA) provides guidance for cutoff [...] Standards of Medical Care in Diabetes 2016, [place] [employer]. Diabetes Care. 2016.39(Suppl 1). Performed By: #### 2 4323-8 ####[facility] LABCLIA [id number] [place] [address] Potassium [Moles/Vol] 4.1 mmol/L Normal 3.7-5.1 [facility] Comment on above: Order Comment: Speci men Type: BLOOD SPECIMENOrdering Facility: [facility] Address: [address] [place] [address] Performed By: #### 2 4323-8 ####[facility] LABCLIA [id number] [place] [address] Protein [Mass/Vol] 6.1 g/dL Low 6.3-8.0 [facility] Comment on above: Order Comment: Speci men Type: BLOOD SPECIMENOrdering Facility: [facility] Address: [address] [place] [address] Performed By: #### 2 4323-8 ####[facility] LABCLIA [id number] [place] [address] Sodium [Moles/Vol] 140 mmol/L Normal 136-144 [facility] Comment on above: Order Comment: Speci men Type: BLOOD SPECIMENOrdering Facility: [facility] Address: [address] [place] [address] Performed By: #### 2 4323-8 ####[facility] LABCLIA [id number] [place] [address] Urea nitrogen [Mass/Vol] 34 mg/dL High 9-24 [facility] Comment on above: Order Comment: Speci men Type: BLOOD SPECIMENOrdering Facility: [facility] Address: [address] [place] [address] Performed By: #### 2 4323-8 ####[facility] LABCLIA [id number] [place] [address] Cortis SerPlAMG [facility]20 Cortisol [Mass/Vol] 10.2 ug/dL Normal 4.8-19.5 [facility] Comment on above: Order Comment: Vero barton Type: BLOOD SPECIMENOrdering Facility: [facility] Address: [address] [place] [address] Result Comment: Prov ided reference range is from 6-10 AM sample collection time.Cortisol Reference Range: 6-10 AM = 4.8-19.5 ug/dL, 4-8 PM = 2.5-11.9 ug/dL Performed By: #### 2 143-6, 3016-3 ####[facility] LABCLIA [id number] [address] [place] HbA1c (Bld)on 07-18-2023 Average glucose Estimated from glycated hemoglobin (Bld) [Mass/Vol] 103 mg/dL Normal [facility] Comment on above: Order Comment: Vero barton Type: BLOOD SPECIMENOrdering Facility: [facility] Address: [address] [place] [address] Result Comment: eAG: (Estimated average glucose) is a calculated value from HgbA1c and is operations support representative of the average blood glucose level in the last 2-3 month period. Performed By: #### 5 5454-3 ####[facility] LABCLIA [id number] [place] [address] [place] HbA1c (Bld) [Mass fraction] 5.2 % Normal 4.3-5.6 [facility] Comment on above: Order Comment: Vero oralia Type: BLOOD SPECIMENOrdering Facility: [facility] Address: [address] [place] [address] Result Comment: [place] Diabetes Association guidelines indicate that patients with HgbA1c in the range 5.7-6.4% are at increased risk for development of diabetes, and intervention by lifestyle modification may be beneficial. HgbA1c greater or equal to 6.5% is considered diagnostic of diabetes. Performed By: #### 5 5454-3 ####[facility] LABCLIA [id number] [place] [address] [place] TSH SerPl-aCncon 07-18-2023 TSH Qn 2.150 m[IU]/L Normal 0.270-4.200 [facility] Comment on above: Order Comment: Speci men Type: BLOOD SPECIMENOrdering Facility: [facility] Address: [address] [place] [address] Performed By: #### 2 143-6, 3016-3 ####[facility] LABCLIA [id number] [place] [address] [place] CBC W Auto Differential pane l (Bld)on 06-27-2023 Basophils (Bld) [#/Vol] 0.05 10*3/uL Normal <0.11 [facility] Comment on above: Order Comment: Speci men Type: BLOOD SPECIMENOrdering Facility: [facility] Address: [address] [place] [address] Performed By: #### 5 7021-8 ####[facility] LABCLIA [id number] [place] [address] Basophils/100 WBC (Bld) 0.8 % Normal [facility] Comment on above: Order Comment: Speci men Type: BLOOD SPECIMENOrdering Facility: [facility] Address: [address] [place] [address] Performed By: #### 5 7021-8 ####[facility] LABCLIA [id number] [place] [address] Differential cell count method Nom (Bld) Auto Normal [facility] Comment on above: Order Comment: Speci men Type: BLOOD SPECIMENOrdering Facility: [facility] Address: [address] [place] [address] Performed By: #### 5 7021-8 ####[facility] LABCLIA [id number] [place] [address] Eosinophils (Bld) [#/Vol] 0.28 10*3/uL Normal <0.46 [facility] Comment on above: Order Comment: Speci men Type: BLOOD SPECIMENOrdering Facility: [facility] Address: [address] [place] [address] Performed By: #### 5 7021-8 ####[facility] LABCLIA [id number] [place] [address] Eosinophils/100 WBC (Bld) 4.4 % Normal [facility] Comment on above: Order Comment: Speci men Type: BLOOD SPECIMENOrdering Facility: [facility] Address: [address] [place] [address] Performed By: #### 5 7021-8 ####[facility] LABCLIA [id number] [place] [address] Erythrocyte distribution width (RBC) [Ratio] 13.7 % Normal 11.5-15.0 [facility] Comment on above: Order Comment: Speci men Type: BLOOD SPECIMENOrdering Facility: [facility] Address: [address] [place] [address] Performed By: #### 5 7021-8 ####[facility] LABCLIA [id number] [place] [address] Hematocrit (Bld) [Volume fraction] 39.7 % Normal 39.0-51.0 [facility] Comment on above: Order Comment: Speci men Type: BLOOD SPECIMENOrdering Facility: [facility] Address: [address] [place] [address] Performed By: #### 5 7021-8 ####[facility] LABCLIA [id number] [place] [address] Hemoglobin (Bld) [Mass/Vol] 13.3 g/dL Normal 13.0-17.0 [facility] Comment on above: Order Comment: Speci men Type: BLOOD SPECIMENOrdering Facility: [facility] Address: [address] [place] [address] Performed By: #### 5 7021-8 ####[facility] LABCLIA [id number] [place] [address] Immature granulocytes (Bld) [#/Vol] 10*3/uL Normal <0.10 [facility] Comment on above: Order Comment: Speci men Type: BLOOD SPECIMENOrdering Facility: [facility] Address: [address] [place] [address] Performed By: #### 5 7021-8 ####[facility] LABCLIA [id number] [place] [address] Immature granulocytes/100 WBC (Bld) 0.3 % Normal [facility] Comment on above: Order Comment: Speci men Type: BLOOD SPECIMENOrdering Facility: [facility] Address: [address] [place] [address] Performed By: #### 5 7021-8 ####[facility] LABCLIA [id number] [place] [address] Lymphocytes (Bld) [#/Vol] 0.89 10*3/uL Low 1.00-4.00 [facility] Comment on above: Order Comment: Speci men Type: BLOOD SPECIMENOrdering Facility: [facility] Address: [address] [place] [address] Performed By: #### 5 7021-8 ####[facility] LABCLIA [id number] [place] [address] Lymphocytes/100 WBC (Bld) 14.1 % Normal [facility] Comment on above: Order Comment: Speci men Type: BLOOD SPECIMENOrdering Facility: [facility] Address: [address] [place] [address] Performed By: #### 5 7021-8 ####[facility] LABIA [id number] [place] [address] MCH (RBC) [Entitic mass] 28.2 pg Normal 26.0-34.0 [facility] Comment on above: Order Comment: Speci men Type: BLOOD SPECIMENOrdering Facility: [facility] Address: [facility] [place] [address] Performed By: #### 5 7021-8 ####[facility] LABCLIA [id number] [place] [address] MCHC (RBC) [Mass/Vol] 33.5 g/dL Normal 30.5-36.0 [facility] Comment on above: Order Comment: Speci men Type: BLOOD SPECIMENOrdering Facility: [facility] Address: [address] [place] [address] Performed By: #### 5 7021-8 ####[facility] LABIA [id number] [place] [address] MCV (RBC) [Entitic vol] 84.3 fL Normal 80.0-100.0 [facility] Comment on above: Order Comment: Speci men Type: BLOOD SPECIMENOrdering Facility: [facility] Address: [address] [place] [address] Performed By: #### 5 7021-8 ####[facility] LABIA [id number] [place] [address] Monocytes (Bld) [#/Vol] 0.48 10*3/uL Normal <0.87 [facility] Comment on above: Order Comment: Speci men Type: BLOOD SPECIMENOrdering Facility: [facility] Address: [address] [place] [address] Performed By: #### 5 7021-8 ####[facility] LABIA [id number] [place] [address] Monocytes/100 WBC (Bld) 7.6 % Normal [facility] Comment on above: Order Comment: Speci men Type: BLOOD SPECIMENOrdering Facility: [facility] Address: [address] [place] [address] Performed By: #### 5 7021-8 ####[facility] LABIA [id number] [place] [address] Neutrophils (Bld) [#/Vol] 4.60 10*3/uL Normal 1.45-7.50 [facility] Comment on above: Order Comment: Speci men Type: BLOOD SPECIMENOrdering Facility: [facility] Address: [address] [place] [address] Performed By: #### 5 7021-8 ####[facility] LABCLIA [id number] [place] [address] Neutrophils/100 WBC (Bld) 72.8 % Normal [facility] Comment on above: Order Comment: Speci men Type: BLOOD SPECIMENOrdering Facility: [facility] Address: [address] [place] [address] Performed By: #### 5 7021-8 ####[facility] LABCLIA [id number] [place] [address] Nucleated RBC (Bld) [#/Vol] 10*3/uL Normal <0.01 [facility] Comment on above: Order Comment: Speci men Type: BLOOD SPECIMENOrdering Facility: [facility] Address: [address] [place] [address] Performed By: #### 5 7021-8 ####[facility] LABCLIA [id number] [place] [address] Nucleated RBC/100 WBC (Bld) [Ratio] 0.0 /100 WBC Normal [facility] Comment on above: Order Comment: Speci men Type: BLOOD SPECIMENOrdering Facility: [facility] Address: [address] [place] [address] Performed By: #### 5 7021-8 ####[facility] LABCLIA [id number] [place] [address] Platelet mean volume (Bld) [Entitic vol] 9.5 fL Normal 9.0-12.7 [facility] Comment on above: Order Comment: Speci men Type: BLOOD SPECIMENOrdering Facility: [facility] Address: [address] [place] [address] Performed By: #### 5 7021-8 ####[facility] LABCLIA [id number] [place] [address] Platelets (Bld) [#/Vol] 177 10*3/uL Normal 150-400 [facility] Comment on above: Order Comment: Speci men Type: BLOOD SPECIMENOrdering Facility: [facility] Address: [address] [place] [address] Performed By: #### 5 7021-8 ####[facility] LABCLIA [id number] [place] [address] RBC (Bld) [#/Vol] 4.71 10*6/uL Normal 4.20-6.00 [facility] Comment on above: Order Comment: Speci men Type: BLOOD SPECIMENOrdering Facility: [facility] Address: [address] [place] [address] Performed By: #### 5 7021-8 ####[facility] LABIA [id number] [place] [address] WBC (Bld) [#/Vol] 6.32 10*3/uL Normal 3.70-11.00 [facility] Comment on above: Order Comment: Speci men Type: BLOOD SPECIMENOrdering Facility: [facility] Address: [address] [place] [address] Performed By: #### 5 7021-8 ####[facility] LABIA [id number] [place] [address] CNOVSPon 06-27-2023 CNOVSP Normal [facility] Comprehensive metabolic 2000 panelon 06-27-2023 Albumin [Mass/Vol] 4.1 g/dL Normal 3.9-4.9 [facility] Comment on above: Order Comment: Speci men Type: BLOOD SPECIMENOrdering Facility: [facility] Address: [address] [place] [address] Performed By: #### 2 4323-8 ####[facility] LABCLIA [id number] [place] [address] ALP [Catalytic activity/Vol] 83 U/L Normal 38-113 [facility] Comment on above: Order Comment: Speci men Type: BLOOD SPECIMENOrdering Facility: [facility] Address: [address] [place] [address] Performed By: #### 2 4323-8 ####[facility] LABCLIA [id number] [place] [address] ALT [Catalytic activity/Vol] 21 U/L Normal 10-54 [facility] Comment on above: Order Comment: Speci men Type: BLOOD SPECIMENOrdering Facility: [facility] Address: [address] [place] [address] Performed By: #### 2 4323-8 ####[facility] LABCLIA [id number] [place] [address] Anion gap [Moles/Vol] 10 mmol/L Normal 9-18 [facility] Comment on above: Order Comment: Speci men Type: BLOOD SPECIMENOrdering Facility: [facility] Address: [address] [place] [address] Performed By: #### 2 4323-8 ####[facility] LABCLIA [id number] [place] [address] AST [Catalytic activity/Vol] 28 U/L Normal 14-40 [facility] Comment on above: Order Comment: Speci men Type: BLOOD SPECIMENOrdering Facility: [facility] Address: [address] [place] [address] Performed By: #### 2 4323-8 ####[facility] LABCLIA [id number] [place] [address] Bilirubin [Mass/Vol] 0.4 mg/dL Normal 0.2-1.3 [facility] Comment on above: Order Comment: Speci men Type: BLOOD SPECIMENOrdering Facility: [facility] Address: [address] [place] [address] Performed By: #### 2 4323-8 ####[facility] LABCLIA [id number] [place] [address] Calcium [Mass/Vol] 8.9 mg/dL Normal 8.5-10.2 [facility] Comment on above: Order Comment: Speci men Type: BLOOD SPECIMENOrdering Facility: [facility] Address: [address] [place] [address] Performed By: #### 2 4323-8 ####[facility] LABCLIA [id number] [place] [address] Chloride [Moles/Vol] 105 mmol/L Normal 97-105 [facility] Comment on above: Order Comment: Speci men Type: BLOOD SPECIMENOrdering Facility: [facility] Address: [address] [place] [address] Performed By: #### 2 4323-8 ####[facility] LABCLIA [id number] [place] [address] CO2 [Moles/Vol] 24 mmol/L Normal 22-30 [facility] Comment on above: Order Comment: Speci men Type: BLOOD SPECIMENOrdering Facility: [facility] Address: [address] [place] [address] Performed By: #### 2 4323-8 ####[facility] LABCLIA [id number] [place] [address] Creatinine [Mass/Vol] 1.89 mg/dL High 0.73-1.22 [facility] Comment on above: Order Comment: Speci men Type: BLOOD SPECIMENOrdering Facility: [facility] Address: [address] [place] [address] Performed By: #### 2 4323-8 ####[facility] LABCLIA [id number] [place] [address] Creatinine and Glomerular filtration rate.predicted panel (S/P/Bld) 35 mL/min/1.73m??? Low >=60 [facility] Comment on above: Order Comment: Vero barton Type: BLOOD SPECIMENOrdering Facility: [facility] Address: [address] [place] [phone] Result Comment: Viviana mated Glomerular Filtration Rate [...] actual GFR. Performed By: #### 2 4323-8 ####[facility] LABCLIA [id number] [place] [address] Glucose [Mass/Vol] 106 mg/dL High 74-99 [facility] Comment on above: Order Comment: Vero barton Type: BLOOD SPECIMENOrdering Facility: [facility] Address: [place] [phone] Result Comment: The [place] Diabetes Association (ADA) provides guidance for cutoff [...] Standards of Medical Care in Diabetes 2016, [place] Diabetes Association. Diabetes Care. 2016.39(Suppl 1). Performed By: #### 2 4323-8 ####[facility] LABCLIA [id number] [place] [address] Potassium [Moles/Vol] 4.4 mmol/L Normal 3.7-5.1 [facility] Comment on above: Order Comment: Vero barton Type: BLOOD SPECIMENOrdering Facility: [facility] Address: [address] [place] [address] Performed By: #### 2 4323-8 ####[facility] LABCLIA [id number] [place] [address] Protein [Mass/Vol] 6.0 g/dL Low 6.3-8.0 [facility] Comment on above: Order Comment: Speci men Type: BLOOD SPECIMENOrdering Facility: [facility] Address: [address] [place] [address] Performed By: #### 2 4323-8 ####[facility] LABCLIA [id number] [place] [address] Sodium [Moles/Vol] 139 mmol/L Normal 136-144 [facility] Comment on above: Order Comment: Speci men Type: BLOOD SPECIMENOrdering Facility: [facility] Address: [address] [place] [address] Performed By: #### 2 4323-8 ####[facility] LABCLIA [id number] [place] [address] Urea nitrogen [Mass/Vol] 31 mg/dL High 9-24 [facility] Comment on above: Order Comment: Speci men Type: BLOOD SPECIMENOrdering Facility: [facility] Address: [address] [place] [address] Performed By: #### 2 4323-8 ####[facility] LABCLIA [id number] [place] [address] Cortshaye Valdes-Celena 06-27-20 23 Cortisol [Mass/Vol] 9.7 ug/dL Normal 4.8-19.5 [facility] Comment on above: Order Comment: Speci men Type: BLOOD SPECIMENOrdering Facility: [facility] Address: [address] [place] [address] Result Comment: Prov ided reference range is from 6-10 AM sample collection time.Cortisol Reference Range: 6-10 AM = 4.8-19.5 ug/dL, 4-8 PM = 2.5-11.9 ug/dL Performed By: #### 2 143-6, 3016-3 ####[facility] LABCLIA [id number] [address] HbA1c (Bld)on 06-27-2023 Average glucose Estimated from glycated hemoglobin (Bld) [Mass/Vol] 105 mg/dL Normal [facility] Comment on above: Order Comment: Speci men Type: BLOOD SPECIMENOrdering Facility: [facility] Address: [address] [place] [address] Result Comment: eAG: (Estimated average glucose) is a calculated value from HgbA1c and is operations support representative of the average blood glucose level in the last 2-3 month period. Performed By: #### 5 5454-3 ####[facility] LABIA [id number] [address] HbA1c (Bld) [Mass fraction] 5.3 % Normal 4.3-5.6 [facility] Comment on above: Order Comment: Farrahi men Type: BLOOD SPECIMENOrdering Facility: [facility] Address: [address] [place] [address] Result Comment: Amer [place] Diabetes Association guidelines indicate that patients with HgbA1c in the range 5.7-6.4% are at increased risk for development of diabetes, and intervention by lifestyle modification may be beneficial. HgbA1c greater or equal to 6.5% is considered diagnostic of diabetes. Performed By: #### 5 5454-3 ####[facility] LABCLIA [id number] [address] [place] TSH SerPl-aCncon 06-27-2023 TSH Qn 1.920 m[IU]/L Normal 0.270-4.200 [facility] Comment on above: Order Comment: Vero men Type: BLOOD SPECIMENOrdering Facility: [facility] Address: [address] [place] [address] Performed By: #### 2 143-6, 3016-3 ####[facility] LABCLIA [id number] [facility] [id number] [address] [place] CBC W Auto Differential pane l (Bld)on 06-06-2023 Basophils (Bld) [#/Vol] 0.05 10*3/uL Normal <0.11 [facility] Comment on above: Order Comment: Speci men Type: BLOOD SPECIMENOrdering Facility: [facility] Address: [address] [place] [address] Performed By: #### 5 7021-8 ####[facility] LABCLIA [id number] [place] [address] Basophils/100 WBC (Bld) 0.8 % Normal [facility] Comment on above: Order Comment: Speci men Type: BLOOD SPECIMENOrdering Facility: [facility] Address: [address] [place] [address] Performed By: #### 5 7021-8 ####[facility] LABCLIA [id number] [place] [address] Differential cell count method Nom (Bld) Auto Normal [facility] Comment on above: Order Comment: Speci men Type: BLOOD SPECIMENOrdering Facility: [facility] Address: [address] [place] [address] Performed By: #### 5 7021-8 ####[facility] LABCLIA [id number] [place] [address] Eosinophils (Bld) [#/Vol] 0.32 10*3/uL Normal <0.46 [facility] Comment on above: Order Comment: Speci men Type: BLOOD SPECIMENOrdering Facility: [facility] Address: [address] [place] [address] Performed By: #### 5 7021-8 ####[facility] LABCLIA [id number] [place] [address] Eosinophils/100 WBC (Bld) 4.8 % Normal [facility] Comment on above: Order Comment: Speci men Type: BLOOD SPECIMENOrdering Facility: [facility] Address: [address] [place] [address] Performed By: #### 5 7021-8 ####[facility] LABCLIA [id number] [place] [address] Erythrocyte distribution width (RBC) [Ratio] 13.8 % Normal 11.5-15.0 [facility] Comment on above: Order Comment: Speci men Type: BLOOD SPECIMENOrdering Facility: [facility] Address: [address] [place] [address] Performed By: #### 5 7021-8 ####[facility] LABCLIA [id number] [place] [address] Hematocrit (Bld) [Volume fraction] 42.6 % Normal 39.0-51.0 [facility] Comment on above: Order Comment: Speci men Type: BLOOD SPECIMENOrdering Facility: [facility] Address: [address] [place] [address] Performed By: #### 5 7021-8 ####[facility] LABCLIA [id number] [place] [address] Hemoglobin (Bld) [Mass/Vol] 14.4 g/dL Normal 13.0-17.0 [facility] Comment on above: Order Comment: Speci men Type: BLOOD SPECIMENOrdering Facility: [facility] Address: [address] [place] [address] Performed By: #### 5 7021-8 ####[facility] LABCLIA [id number] [place] [address] Immature granulocytes (Bld) [#/Vol] 0.03 10*3/uL Normal <0.10 [facility] Comment on above: Order Comment: Speci men Type: BLOOD SPECIMENOrdering Facility: [facility] Address: [address] [place] [address] Performed By: #### 5 7021-8 ####[facility] LABCLIA [id number] [place] [address] Immature granulocytes/100 WBC (Bld) 0.5 % Normal [facility] Comment on above: Order Comment: Speci men Type: BLOOD SPECIMENOrdering Facility: [facility] Address: [address] [place] [address] Performed By: #### 5 7021-8 ####[facility] LABCLIA [id number] [place] [address] Lymphocytes (Bld) [#/Vol] 0.93 10*3/uL Low 1.00-4.00 [facility] Comment on above: Order Comment: Speci men Type: BLOOD SPECIMENOrdering Facility: [facility] Address: [address] [place] [address] Performed By: #### 5 7021-8 ####[facility] LABCLIA [id number] [place] [address] Lymphocytes/100 WBC (Bld) 14.1 % Normal [facility] Comment on above: Order Comment: Speci men Type: BLOOD SPECIMENOrdering Facility: [facility] Address: [address] [place] [address] Performed By: #### 5 7021-8 ####[facility] LABCLIA [id number] [place] [address] MCH (RBC) [Entitic mass] 28.7 pg Normal 26.0-34.0 [facility] Comment on above: Order Comment: Speci men Type: BLOOD SPECIMENOrdering Facility: [facility] Address: [address] [place] [address] Performed By: #### 5 7021-8 ####[facility] LABCLIA [id number] [place] [address] MCHC (RBC) [Mass/Vol] 33.8 g/dL Normal 30.5-36.0 [facility] Comment on above: Order Comment: Speci men Type: BLOOD SPECIMENOrdering Facility: [facility] Address: [address] [place] [address] Performed By: #### 5 7021-8 ####[facility] LABCLIA [id number] [place] [address] MCV (RBC) [Entitic vol] 84.9 fL Normal 80.0-100.0 [facility] Comment on above: Order Comment: Speci men Type: BLOOD SPECIMENOrdering Facility: [facility] Address: [address] [place] [address] Performed By: #### 5 7021-8 ####[facility] LABCLIA [id number] [place] [address] Monocytes (Bld) [#/Vol] 0.42 10*3/uL Normal <0.87 [facility] Comment on above: Order Comment: Speci men Type: BLOOD SPECIMENOrdering Facility: [facility] Address: [address] [place] [address] Performed By: #### 5 7021-8 ####[facility] LABIA [id number] [place] [address] Monocytes/100 WBC (Bld) 6.4 % Normal [facility] Comment on above: Order Comment: Speci men Type: BLOOD SPECIMENOrdering Facility: [facility] Address: [address] [place] [address] Performed By: #### 5 7021-8 ####[facility] LABCLIA [id number] [place] [address] Neutrophils (Bld) [#/Vol] 4.85 10*3/uL Normal 1.45-7.50 [facility] Comment on above: Order Comment: Speci men Type: BLOOD SPECIMENOrdering Facility: [facility] Address: [address] [place] [address] Performed By: #### 5 7021-8 ####[facility] LABCLIA [id number] [place] [address] Neutrophils/100 WBC (Bld) 73.4 % Normal [facility] Comment on above: Order Comment: Speci men Type: BLOOD SPECIMENOrdering Facility: [facility] Address: [address] Performed By: #### 5 7021-8 ####[facility] LABCLIA [id number] [place] [address] Nucleated RBC (Bld) [#/Vol] 10*3/uL Normal <0.01 [facility] Comment on above: Order Comment: Speci men Type: BLOOD SPECIMENOrdering Facility: [facility] Address: [address] [address] Performed By: #### 5 7021-8 ####[facility] LABCLIA [id number] [place] [address] Nucleated RBC/100 WBC (Bld) [Ratio] 0.0 /100 WBC Normal [facility] Comment on above: Order Comment: Speci men Type: BLOOD SPECIMENOrdering Facility: [facility] Address: [address] [address] Performed By: #### 5 7021-8 ####[facility] LABCLIA [id number] [place] [address] Platelet mean volume (Bld) [Entitic vol] 9.0 fL Normal 9.0-12.7 [facility] Comment on above: Order Comment: Speci men Type: BLOOD SPECIMENOrdering Facility: [facility] Address: [address] Performed By: #### 5 7021-8 ####[facility] LABIA [id number] [place] [address] Platelets (Bld) [#/Vol] 185 10*3/uL Normal 150-400 [facility] Comment on above: Order Comment: Speci men Type: BLOOD SPECIMENOrdering Facility: [facility] Address: [address] Performed By: #### 5 7021-8 ####[facility] LABCLIA [id number] [place] [address] RBC (Bld) [#/Vol] 5.02 10*6/uL Normal 4.20-6.00 [facility] Comment on above: Order Comment: Speci men Type: BLOOD SPECIMENOrdering Facility: [facility] Address: [address] [place] [address] Performed By: #### 5 7021-8 ####[facility] LABCLIA [id number] [place] [address] WBC (Bld) [#/Vol] 6.60 10*3/uL Normal 3.70-11.00 [facility] Comment on above: Order Comment: Speci men Type: BLOOD SPECIMENOrdering Facility: [facility] Address: [address] [place] [address] Performed By: #### 5 7021-8 ####[facility] LABCLIA [id number] [place] [address] CNOVSPon 06-06-2023 CNOVSP Normal [facility] Comprehensive metabolic 2000 panelon 06-06-2023 Albumin [Mass/Vol] 4.6 g/dL Normal 3.9-4.9 [facility] Comment on above: Order Comment: Speci men Type: BLOOD SPECIMENOrdering Facility: [facility] Address: [address] [place] [address] Performed By: #### 2 4323-8 ####[facility] LABCLIA [id number] [place] [address] ALP [Catalytic activity/Vol] 82 U/L Normal 38-113 [facility] Comment on above: Order Comment: Speci men Type: BLOOD SPECIMENOrdering Facility: [facility] Address: [address] [place] [address] Performed By: #### 2 4323-8 ####[facility] LABCLIA [id number] [place] [address] ALT [Catalytic activity/Vol] 17 U/L Normal 10-54 [facility] Comment on above: Order Comment: Speci men Type: BLOOD SPECIMENOrdering Facility: [facility] Address: [address] [place] [address] Performed By: #### 2 4323-8 ####[facility] LABCLIA [id number] [place] [address] Anion gap [Moles/Vol] 9 mmol/L Normal 9-18 [facility] Comment on above: Order Comment: Speci men Type: BLOOD SPECIMENOrdering Facility: [facility] Address: [address] [place] [address] Performed By: #### 2 4323-8 ####[facility] LABCLIA [id number] [place] [address] AST [Catalytic activity/Vol] 25 U/L Normal 14-40 [facility] Comment on above: Order Comment: Speci men Type: BLOOD SPECIMENOrdering Facility: [facility] Address: [address] [place] [address] Performed By: #### 2 4323-8 ####[facility] LABCLIA [id number] [place] [address] Bilirubin [Mass/Vol] 0.6 mg/dL Normal 0.2-1.3 [facility] Comment on above: Order Comment: Speci men Type: BLOOD SPECIMENOrdering Facility: [facility] Address: [address] [place] [address] Performed By: #### 2 4323-8 ####[facility] LABCLIA [id number] [place] [address] Calcium [Mass/Vol] 9.2 mg/dL Normal 8.5-10.2 [facility] Comment on above: Order Comment: Speci men Type: BLOOD SPECIMENOrdering Facility: [facility] Address: [address] [place], [place] [address] Performed By: #### 2 4323-8 ####[facility] LABCLIA [id number] [place] [address] Chloride [Moles/Vol] 104 mmol/L Normal 97-105 [facility] Comment on above: Order Comment: Speci men Type: BLOOD SPECIMENOrdering Facility: [facility] Address: [address] [place] [address] Performed By: #### 2 4323-8 ####[facility] LABCLIA [id number] [place] [address] CO2 [Moles/Vol] 25 mmol/L Normal 22-30 [facility] Comment on above: Order Comment: Speci men Type: BLOOD SPECIMENOrdering Facility: [facility] Address: [address] [place] [address] Performed By: #### 2 4323-8 ####[facility] LABCLIA [id number] [place] [address] Creatinine [Mass/Vol] 2.01 mg/dL High 0.73-1.22 [facility] Comment on above: Order Comment: Speci men Type: BLOOD SPECIMENOrdering Facility: [facility] Address: [address] [place] [address] Performed By: #### 2 4323-8 ####[facility] LABCLIA [id number] [place] [address] Creatinine and Glomerular filtration rate.predicted panel (S/P/Bld) 32 mL/min/1.73m??? Low >=60 [facility] Comment on above: Order Comment: Speci men Type: BLOOD SPECIMENOrdering Facility: [facility] Address: [address] [place] [address] Result Comment: Viviana mated Glomerular Filtration Rate [...] actual GFR. Performed By: #### 2 4323-8 ####[facility] LABCLIA [id number] [place] [address] Glucose [Mass/Vol] 100 mg/dL High 74-99 [facility] Comment on above: Order Comment: Vero barton Type: BLOOD SPECIMENOrdering Facility: [facility] Address: [address] [place] [address] Result Comment: The [place] Diabetes Association (ADA) provides guidance for cutoff [...] Standards of Medical Care in Diabetes 2016, [place] [employer]. Diabetes Care. 2016.39(Suppl 1). Performed By: #### 2 4323-8 ####[facility] LABCLIA [id number] [place] [address] Potassium [Moles/Vol] 4.6 mmol/L Normal 3.7-5.1 [facility] Comment on above: Order Comment: Vero barton Type: BLOOD SPECIMENOrdering Facility: [facility] Address: [address] [id number] Performed By: #### 2 4323-8 ####[facility] LABCLIA [id number] [place] [address] Protein [Mass/Vol] 6.5 g/dL Normal 6.3-8.0 [facility] Comment on above: Order Comment: Vero barton Type: BLOOD SPECIMENOrdering Facility: [facility] Address: [address] [place] [address] Performed By: #### 2 4323-8 ####[facility] LABCLIA [id number] [place] [address] Sodium [Moles/Vol] 138 mmol/L Normal 136-144 [facility] Comment on above: Order Comment: Speci men Type: BLOOD SPECIMENOrdering Facility: [facility] Address: [address] [place] [address] Performed By: #### 2 4323-8 ####[facility] LABCLIA [id number] [place] [address] Urea nitrogen [Mass/Vol] 36 mg/dL High 07-07 [facility] Comment on above: Order Comment: Speci men Type: BLOOD SPECIMENOrdering Facility: [facility] Address: [address] [place] [address] Performed By: #### 2 4323-8 ####[facility] LABCLIA [id number] [place] [address] Cortis SerPl-mCncon 06-06-20 Cortisol [Mass/Vol] 6.4 ug/dL Normal 4.8-19.5 [facility] Comment on above: Order Comment: Speci men Type: BLOOD SPECIMENOrdering Facility: [facility] Address: [address] [place] [address] Result Comment: Prov ided reference range is from 6-10 AM sample collection time.Cortisol Reference Range: 6-10 AM = 4.8-19.5 ug/dL, 4-8 PM = 2.5-11.9 ug/dL Performed By: #### 3 016-3, 2143-6 ####[facility] LABCLIA [id number] [facility] [place] [address] [place] HbA1c (Bld)on 06-06-2023 Average glucose Estimated from glycated hemoglobin (Bld) [Mass/Vol] 97 mg/dL Normal [facility] Comment on above: Order Comment: Speci men Type: BLOOD SPECIMENOrdering Facility: [facility] Address: [address] [id number] Result Comment: eAG: (Estimated average glucose) is a calculated value from HgbA1c and is operations support representative of the average blood glucose level in the last 2-3 month period. Performed By: #### 5 5454-3 ####[facility] LABIA [id number] [place] [address] [place] HbA1c (Bld) [Mass fraction] 5.0 % Normal 4.3-5.6 [facility] Comment on above: Order Comment: Speci men Type: BLOOD SPECIMENOrdering Facility: [facility] Address: [address] [address] Result Comment: [place] Diabetes Association guidelines indicate that patients with HgbA1c in the range 5.7-6.4% are at increased risk for development of diabetes, and intervention by lifestyle modification may be beneficial. HgbA1c greater or equal to 6.5% is considered diagnostic of diabetes. Performed By: #### 5 5454-3 ####[facility] LABIA [id number] [place] [address] [place] TSH SerPl-aCncon 06-06-2023 TSH Qn 4.600 m[IU]/L High 0.270-4.200 [facility] Comment on above: Order Comment: Speci men Type: BLOOD SPECIMENOrdering Facility: [facility] Address: [address] [address] Performed By: #### 3 016-3, 2143-6 ####[facility] LABIA [id number] [place] [address] [place] CT ABD/PEL W IVCONon 023 CT ABD/PEL W IVCON Normal [facility] CT CHEST W IVCONon 3 CT CHEST W IVCON Normal [facility] CBC W Auto Differential pane l (Bld)on 05-16-2023 Basophils (Bld) [#/Vol] 0.05 10*3/uL Normal <0.11 [facility] Comment on above: Order Comment: Speci men Type: BLOOD SPECIMENOrdering Facility: [facility] Address: [address] [place] [address] Performed By: #### 5 7021-8 ####[facility] LABCLIA [id number] [place] [address] Basophils/100 WBC (Bld) 0.7 % Normal [facility] Comment on above: Order Comment: Speci men Type: BLOOD SPECIMENOrdering Facility: [facility] Address: [address] [place] [address] Performed By: #### 5 7021-8 ####[facility] LABCLIA [id number] [place] [address] Differential cell count method Nom (Bld) Auto Normal [facility] Comment on above: Order Comment: Speci men Type: BLOOD SPECIMENOrdering Facility: [facility] Address: [address] [place] [address] Performed By: #### 5 7021-8 ####[facility] LABCLIA [id number] [place] [address] Eosinophils (Bld) [#/Vol] 0.31 10*3/uL Normal <0.46 [facility] Comment on above: Order Comment: Speci men Type: BLOOD SPECIMENOrdering Facility: [facility] Address: [address] [place] [address] Performed By: #### 5 7021-8 ####[facility] LABCLIA [id number] [place] [address] Eosinophils/100 WBC (Bld) 4.5 % Normal [facility] Comment on above: Order Comment: Speci men Type: BLOOD SPECIMENOrdering Facility: [facility] Address: [address] [place] [address] Performed By: #### 5 7021-8 ####[facility] LABCLIA [id number] [place] [address] Erythrocyte distribution width (RBC) [Ratio] 14.3 % Normal 11.5-15.0 [facility] Comment on above: Order Comment: Speci men Type: BLOOD SPECIMENOrdering Facility: [facility] Address: [address] [place] [address] Performed By: #### 5 7021-8 ####[facility] LABCLIA [id number] [place] [address] Hematocrit (Bld) [Volume fraction] 40.4 % Normal 39.0-51.0 [facility] Comment on above: Order Comment: Speci men Type: BLOOD SPECIMENOrdering Facility: [facility] Address: [address] [place] [address] Performed By: #### 5 7021-8 ####[facility] LABIA [id number] [place] [address] Hemoglobin (Bld) [Mass/Vol] 13.3 g/dL Normal 13.0-17.0 [facility] Comment on above: Order Comment: Speci men Type: BLOOD SPECIMENOrdering Facility: [facility] Address: [address] [place] [address] Performed By: #### 5 7021-8 ####[facility] LABCLIA [id number] [place] [address] Immature granulocytes (Bld) [#/Vol] 10*3/uL Normal <0.10 [facility] Comment on above: Order Comment: Speci men Type: BLOOD SPECIMENOrdering Facility: [facility] Address: [address] [place] [address] Performed By: #### 5 7021-8 ####[facility] LABIA [id number] [place] [address] Immature granulocytes/100 WBC (Bld) 0.3 % Normal [facility] Comment on above: Order Comment: Speci men Type: BLOOD SPECIMENOrdering Facility: [facility] Address: [address] [place] [address] Performed By: #### 5 7021-8 ####[facility] LABCLIA [id number] [place] [address] Lymphocytes (Bld) [#/Vol] 0.94 10*3/uL Low 1.00-4.00 [facility] Comment on above: Order Comment: Speci men Type: BLOOD SPECIMENOrdering Facility: [facility] Address: [address] [place] [address] Performed By: #### 5 7021-8 ####[facility] LABIA [id number] [place] [address] Lymphocytes/100 WBC (Bld) 13.6 % Normal [facility] Comment on above: Order Comment: Speci men Type: BLOOD SPECIMENOrdering Facility: [facility] Address: [address] [place] [address] Performed By: #### 5 7021-8 ####[facility] LABIA [id number] [place] [address] MCH (RBC) [Entitic mass] 27.8 pg Normal 26.0-34.0 [facility] Comment on above: Order Comment: Speci men Type: BLOOD SPECIMENOrdering Facility: [facility] Address: [address] [place] [address] Performed By: #### 5 7021-8 ####[facility] LABIA [id number] [place] [address] MCHC (RBC) [Mass/Vol] 32.9 g/dL Normal 30.5-36.0 [facility] Comment on above: Order Comment: Speci men Type: BLOOD SPECIMENOrdering Facility: [facility] Address: [address] [place] [address] Performed By: #### 5 7021-8 ####[facility] LABIA [id number] [place] [address] MCV (RBC) [Entitic vol] 84.5 fL Normal 80.0-100.0 [facility] Comment on above: Order Comment: Speci men Type: BLOOD SPECIMENOrdering Facility: [facility] Address: [address] [place] [address] Performed By: #### 5 7021-8 ####[facility] LABCLIA [id number] [place] [address] Monocytes (Bld) [#/Vol] 0.33 10*3/uL Normal <0.87 [facility] Comment on above: Order Comment: Speci men Type: BLOOD SPECIMENOrdering Facility: [facility] Address: [address] [place] [address] Performed By: #### 5 7021-8 ####[facility] LABCLIA [id number] [place] [address] Monocytes/100 WBC (Bld) 4.8 % Normal [facility] Comment on above: Order Comment: Speci men Type: BLOOD SPECIMENOrdering Facility: [facility] Address: [address] [place] [address] Performed By: #### 5 7021-8 ####[facility] LABCLIA [id number] [place] [address] Neutrophils (Bld) [#/Vol] 5.26 10*3/uL Normal 1.45-7.50 [facility] Comment on above: Order Comment: Speci men Type: BLOOD SPECIMENOrdering Facility: [facility] Address: [address] [address] Performed By: #### 5 7021-8 ####[facility] LABCLIA [id number] [place] [address] Neutrophils/100 WBC (Bld) 76.1 % Normal [facility] Comment on above: Order Comment: Speci men Type: BLOOD SPECIMENOrdering Facility: [facility] Address: [address] [place] [address] Performed By: #### 5 7021-8 ####[facility] LABCLIA [id number] [place] [address] Nucleated RBC (Bld) [#/Vol] 10*3/uL Normal <0.01 [facility] Comment on above: Order Comment: Speci men Type: BLOOD SPECIMENOrdering Facility: [facility] Address: [address] [place] [address] Performed By: #### 5 7021-8 ####[facility] LABCLIA [id number] [place] [address] Nucleated RBC/100 WBC (Bld) [Ratio] 0.0 /100 WBC Normal [facility] Comment on above: Order Comment: Speci men Type: BLOOD SPECIMENOrdering Facility: [facility] Address: [address] [place] [address] Performed By: #### 5 7021-8 ####[facility] LABIA [id number] [place] [address] Platelet mean volume (Bld) [Entitic vol] 8.8 fL Low 9.0-12.7 [facility] Comment on above: Order Comment: Speci men Type: BLOOD SPECIMENOrdering Facility: [facility] Address: [address] [place] [address] Performed By: #### 5 7021-8 ####[facility] LABCLIA [id number] [place] [address] Platelets (Bld) [#/Vol] 188 10*3/uL Normal 150-400 [facility] Comment on above: Order Comment: Speci men Type: BLOOD SPECIMENOrdering Facility: [facility] Address: [address] [place] [address] Performed By: #### 5 7021-8 ####[facility] LABCLIA [id number] [place] [address] RBC (Bld) [#/Vol] 4.78 10*6/uL Normal 4.20-6.00 [facility] Comment on above: Order Comment: Speci men Type: BLOOD SPECIMENOrdering Facility: [facility] Address: [address] [place] [address] Performed By: #### 5 7021-8 ####[facility] LABCLIA [id number] [place] [address] WBC (Bld) [#/Vol] 6.91 10*3/uL Normal 3.70-11.00 [facility] Comment on above: Order Comment: Speci men Type: BLOOD SPECIMENOrdering Facility: [facility] Address: [address] [place] [address] Performed By: #### 5 7021-8 ####[facility] LABIA [id number] [place] [address] CNOVSPon 05-16-2023 CNOVSP Normal [facility] Comprehensive metabolic 2000 panelon 05-16-2023 Albumin [Mass/Vol] 4.2 g/dL Normal 3.9-4.9 [facility] Comment on above: Order Comment: Speci men Type: BLOOD SPECIMENOrdering Facility: [facility] Address: [address] [place] [address] Performed By: #### 2 4323-8 ####[facility] LABCLIA [id number] [place] [address] ALP [Catalytic activity/Vol] 75 U/L Normal 38-113 [facility] Comment on above: Order Comment: Speci men Type: BLOOD SPECIMENOrdering Facility: [facility] Address: [address] [place] [address] Performed By: #### 2 4323-8 ####[facility] LABCLIA [id number] [place] [address] ALT [Catalytic activity/Vol] 17 U/L Normal 10-54 [facility] Comment on above: Order Comment: Speci men Type: BLOOD SPECIMENOrdering Facility: [facility] Address: [address] [address] Performed By: #### 2 4323-8 ####[facility] LABCLIA [id number] [place] [address] Anion gap [Moles/Vol] 9 mmol/L Normal 9-18 [facility] Comment on above: Order Comment: Speci men Type: BLOOD SPECIMENOrdering Facility: [facility] Address: [address] [address] Performed By: #### 2 4323-8 ####[facility] LABCLIA [id number] [place] [address] AST [Catalytic activity/Vol] 26 U/L Normal 14-40 [facility] Comment on above: Order Comment: Speci men Type: BLOOD SPECIMENOrdering Facility: [facility] Address: [address] [address] Performed By: #### 2 4323-8 ####[facility] LABCLIA [id number] [place] [address] Bilirubin [Mass/Vol] 0.5 mg/dL Normal 0.2-1.3 [facility] Comment on above: Order Comment: Speci men Type: BLOOD SPECIMENOrdering Facility: [facility] Address: [address] [address] Performed By: #### 2 4323-8 ####[facility] LABCLIA [id number] [place] [address] Calcium [Mass/Vol] 8.9 mg/dL Normal 8.5-10.2 [facility] Comment on above: Order Comment: Speci men Type: BLOOD SPECIMENOrdering Facility: [facility] Address: [address] [address] Performed By: #### 2 4323-8 ####[facility] LABCLIA [id number] [place] [address] Chloride [Moles/Vol] 103 mmol/L Normal 97-105 [facility] Comment on above: Order Comment: Speci men Type: BLOOD SPECIMENOrdering Facility: [facility] Address: [address] [place] [address] Performed By: #### 2 4323-8 ####[facility] LABCLIA [id number] [place] [address] CO2 [Moles/Vol] 25 mmol/L Normal 22-30 [facility] Comment on above: Order Comment: Speci men Type: BLOOD SPECIMENOrdering Facility: [facility] Address: [address] [place] [address] Performed By: #### 2 4323-8 ####[facility] LABCLIA [id number] [place] [address] Creatinine [Mass/Vol] 1.87 mg/dL High 0.73-1.22 [facility] Comment on above: Order Comment: Speci men Type: BLOOD SPECIMENOrdering Facility: [facility] Address: [address] [place] [address] Performed By: #### 2 4323-8 ####[facility] LABCLIA [id number] [place] [address] ESTIMATED GLOMERULAR FILTRATION RATE 35 mL/min/1.73m??? Low >=60 [facility] Comment on above: Order Comment: Speci men Type: BLOOD SPECIMENOrdering Facility: [facility] Address: [address] [place] [address] Result Comment: Viviana mated Glomerular Filtration Rate [...] actual GFR. Performed By: #### 2 4323-8 ####[facility] LABCLIA [id number] [place] [address] Glucose [Mass/Vol] 142 mg/dL High 74-99 [facility] Comment on above: Order Comment: Speci men Type: BLOOD SPECIMENOrdering Facility: [facility] Address: [address] [place] [address] Result Comment: The [place] Diabetes Association (ADA) provides guidance for cutoff [...] Standards of Medical Care in Diabetes 2016, [place] [employer]. Diabetes Care. 2016.39(Suppl 1). Performed By: #### 2 4323-8 ####[facility] LABCLIA [id number] [place] [address] Potassium [Moles/Vol] 3.9 mmol/L Normal 3.7-5.1 [facility] Comment on above: Order Comment: Farrahi men Type: BLOOD SPECIMENOrdering Facility: [facility] Address: [address] [place] [address] Performed By: #### 2 4323-8 ####[facility] LABCLIA [id number] [place] [address] Protein [Mass/Vol] 6.1 g/dL Low 6.3-8.0 [facility] Comment on above: Order Comment: Speci men Type: BLOOD SPECIMENOrdering Facility: [facility] Address: [address] [place] [address] Performed By: #### 2 4323-8 ####[facility] LABCLIA [id number] [place] [address] Sodium [Moles/Vol] 137 mmol/L Normal 136-144 [facility] Comment on above: Order Comment: Speci men Type: BLOOD SPECIMENOrdering Facility: [facility] Address: [address] [address] Performed By: #### 2 4323-8 ####[facility] LABCLIA [id number] [place] [address] Urea nitrogen [Mass/Vol] 24 mg/dL Normal 9-24 [facility] Comment on above: Order Comment: Speci men Type: BLOOD SPECIMENOrdering Facility: [facility] Address: [address] [address] Performed By: #### 2 4323-8 ####[facility] LABCLIA [id number] [place] [address] Cortshaye Chewl-mCncon 05-16-20 23 Cortisol [Mass/Vol] 9.2 ug/dL Normal 4.8-19.5 [facility] Comment on above: Order Comment: Speci men Type: BLOOD SPECIMENOrdering Facility: [facility] Address: [address] [place] [address] Result Comment: Prov ided reference range is from 6-10 AM sample collection time.Cortisol Reference Range: 6-10 AM = 4.8-19.5 ug/dL, 4-8 PM = 2.5-11.9 ug/dL Performed By: #### 2 143-6, 3016-3 ####[facility] LABCLIA [id number] [place] [address] [place] HbA1c (Bld)on 05-16-2023 Average glucose Estimated from glycated hemoglobin (Bld) [Mass/Vol] 94 mg/dL Normal [facility] Comment on above: Order Comment: Speci men Type: BLOOD SPECIMENOrdering Facility: [facility] Address: [address] [place] [address] Result Comment: eAG: (Estimated average glucose) is a calculated value from HgbA1c and is operations support representative of the average blood glucose level in the last 2-3 month period. Performed By: #### 5 5454-3 ####[facility] LABCLIA [id number] [place] [address] [place] HbA1c (Bld) [Mass fraction] 4.9 % Normal 4.3-5.6 [facility] Comment on above: Order Comment: Speci men Type: BLOOD SPECIMENOrdering Facility: [facility] Address: [address] [place] [address] Result Comment: Amer [place] Diabetes Association guidelines indicate that patients with HgbA1c in the range 5.7-6.4% are at increased risk for development of diabetes, and intervention by lifestyle modification may be beneficial. HgbA1c greater or equal to 6.5% is considered diagnostic of diabetes. Performed By: #### 5 5454-3 ####[facility] LABIA [id number] [address] [place] TSH SerPl-aCncon 05-16-2023 TSH Qn 2.580 m[IU]/L Normal 0.270-4.200 [facility] Comment on above: Order Comment: Speci men Type: BLOOD SPECIMENOrdering Facility: [facility] Address: [address] [place] [address] Performed By: #### 2 143-6, 3016-3 ####[facility] LABIA [id number] [address] [place] Consultation Noteon 04-26-20 23 Consultation Note [id number]#[id number] 0CD:127 Normal [facility] Follow-Upon 04-26-2023 Follow-Up [id number] Juan Jose Austin 1940 M Date Provider Department Center 04/26/2023 Alberto-JOSESITO VILLANUEVA Family History Problem Relation Age of Onset Heart failure Mother Family Status - Relation Status Age at Mother Level of Service:15046 SD OFFICE/OUTPATIENT ESTABLISHED MOD MDM 30-39 MIN Reason for Visit and Comments: Follow-up [276371] - Pt is here for PPM F/U Normal [facility] CBC W Auto Differential pane l (Bld)on 04-25-2023 Basophils (Bld) [#/Vol] 0.03 10*3/uL Normal <0.11 [facility] Comment on above: Order Comment: Speci men Type: BLOOD SPECIMENOrdering Facility: [facility] Address: [address] [place] [address] Performed By: #### 5 7021-8 ####[facility] LABCLIA [id number] [place] [address] Basophils/100 WBC (Bld) 0.5 % Normal [facility] Comment on above: Order Comment: Speci men Type: BLOOD SPECIMENOrdering Facility: [facility] Address: [address] [place] [address] Performed By: #### 5 7021-8 ####[facility] LABCLIA [id number] [place] [address] Differential cell count method Nom (Bld) Auto Normal [facility] Comment on above: Order Comment: Speci men Type: BLOOD SPECIMENOrdering Facility: [facility] Address: [address] [place] [address] Performed By: #### 5 7021-8 ####[facility] LABCLIA [id number] [place] [address] Eosinophils (Bld) [#/Vol] 0.31 10*3/uL Normal <0.46 [facility] Comment on above: Order Comment: Speci men Type: BLOOD SPECIMENOrdering Facility: [facility] Address: [address] [address] Performed By: #### 5 7021-8 ####[facility] LABCLIA [id number] [place] [address] Eosinophils/100 WBC (Bld) 4.8 % Normal [facility] Comment on above: Order Comment: Speci men Type: BLOOD SPECIMENOrdering Facility: [facility] Address: [address] [place] [address] Performed By: #### 5 7021-8 ####[facility] LABCLIA [id number] [place] [address] Erythrocyte distribution width (RBC) [Ratio] 15.3 % High 11.5-15.0 [facility] Comment on above: Order Comment: Speci men Type: BLOOD SPECIMENOrdering Facility: [facility] Address: [address] [place] [address] Performed By: #### 5 7021-8 ####[facility] LABCLIA [id number] [place] [address] Hematocrit (Bld) [Volume fraction] 37.9 % Low 39.0-51.0 [facility] Comment on above: Order Comment: Speci men Type: BLOOD SPECIMENOrdering Facility: [facility] Address: [address] [place] [address] Performed By: #### 5 7021-8 ####[facility] LABCLIA [id number] [place] [address] Hemoglobin (Bld) [Mass/Vol] 12.6 g/dL Low 13.0-17.0 [facility] Comment on above: Order Comment: Speci men Type: BLOOD SPECIMENOrdering Facility: [facility] Address: [address] [place] [address] Performed By: #### 5 7021-8 ####[facility] LABCLIA [id number] [place] [address] Immature granulocytes (Bld) [#/Vol] 10*3/uL Normal <0.10 [facility] Comment on above: Order Comment: Speci men Type: BLOOD SPECIMENOrdering Facility: [facility] Address: [address] [place] [address] Performed By: #### 5 7021-8 ####[facility] LABIA [id number] [place] [address] Immature granulocytes/100 WBC (Bld) 0.2 % Normal [facility] Comment on above: Order Comment: Speci men Type: BLOOD SPECIMENOrdering Facility: [facility] Address: [address] [place] [address] Performed By: #### 5 7021-8 ####[facility] LABCLIA [id number] [place] [address] Lymphocytes (Bld) [#/Vol] 0.73 10*3/uL Low 1.00-4.00 [facility] Comment on above: Order Comment: Speci men Type: BLOOD SPECIMENOrdering Facility: [facility] Address: [address] [address] Performed By: #### 5 7021-8 ####[facility] LABCLIA [id number] [place] [address] Lymphocytes/100 WBC (Bld) 11.3 % Normal [facility] Comment on above: Order Comment: Speci men Type: BLOOD SPECIMENOrdering Facility: [facility] Address: [address] [address] Performed By: #### 5 7021-8 ####[facility] LABCLIA [id number] [place] [address] MCH (RBC) [Entitic mass] 27.9 pg Normal 26.0-34.0 [facility] Comment on above: Order Comment: Speci men Type: BLOOD SPECIMENOrdering Facility: [facility] Address: [address] [address] Performed By: #### 5 7021-8 ####[facility] LABCLIA [id number] [place] [address] MCHC (RBC) [Mass/Vol] 33.2 g/dL Normal 30.5-36.0 [facility] Comment on above: Order Comment: Speci men Type: BLOOD SPECIMENOrdering Facility: [facility] Address: [address] [place] [address] Performed By: #### 5 7021-8 ####[facility] LABCLIA [id number] [place] [address] MCV (RBC) [Entitic vol] 83.8 fL Normal 80.0-100.0 [facility] Comment on above: Order Comment: Speci men Type: BLOOD SPECIMENOrdering Facility: [facility] Address: [address] [place] [address] Performed By: #### 5 7021-8 ####[facility] LABCLIA [id number] [place] [address] Monocytes (Bld) [#/Vol] 0.55 10*3/uL Normal <0.87 [facility] Comment on above: Order Comment: Speci men Type: BLOOD SPECIMENOrdering Facility: [facility] Address: [address] [place] [address] Performed By: #### 5 7021-8 ####[facility] LABCLIA [id number] [place] [address] Monocytes/100 WBC (Bld) 8.5 % Normal [facility] Comment on above: Order Comment: Speci men Type: BLOOD SPECIMENOrdering Facility: [facility] Address: [address] [place] [address] Performed By: #### 5 7021-8 ####[facility] LABCLIA [id number] [place] [address] Neutrophils (Bld) [#/Vol] 4.81 10*3/uL Normal 1.45-7.50 [facility] Comment on above: Order Comment: Speci men Type: BLOOD SPECIMENOrdering Facility: [facility] Address: [address] [place] [address] Performed By: #### 5 7021-8 ####[facility] LABCLIA [id number] [place] [address] Neutrophils/100 WBC (Bld) 74.7 % Normal [facility] Comment on above: Order Comment: Speci men Type: BLOOD SPECIMENOrdering Facility: [facility] Address: [address] [address] Performed By: #### 5 7021-8 ####[facility] LABCLIA [id number] [place] [address] Nucleated RBC (Bld) [#/Vol] 10*3/uL Normal <0.01 [facility] Comment on above: Order Comment: Speci men Type: BLOOD SPECIMENOrdering Facility: [facility] Address: [address] [address] Performed By: #### 5 7021-8 ####[facility] LABCLIA [id number] [place] [address] Nucleated RBC/100 WBC (Bld) [Ratio] 0.0 /100 WBC Normal [facility] Comment on above: Order Comment: Speci men Type: BLOOD SPECIMENOrdering Facility: [facility] Address: [address] [place] [address] Performed By: #### 5 7021-8 ####[facility] LABCLIA [id number] [place] [address] Platelet mean volume (Bld) [Entitic vol] 8.9 fL Low 9.0-12.7 [facility] Comment on above: Order Comment: Speci men Type: BLOOD SPECIMENOrdering Facility: [facility] Address: [address] [place] [address] Performed By: #### 5 7021-8 ####[facility] LABCLIA [id number] [place] [address] Platelets (Bld) [#/Vol] 208 10*3/uL Normal 150-400 [facility] Comment on above: Order Comment: Speci men Type: BLOOD SPECIMENOrdering Facility: [facility] Address: [address] [place] [address] Performed By: #### 5 7021-8 ####[facility] LABCLIA [id number] [place] [address] RBC (Bld) [#/Vol] 4.52 10*6/uL Normal 4.20-6.00 [facility] Comment on above: Order Comment: Speci men Type: BLOOD SPECIMENOrdering Facility: [facility] Address: [address] [place] [address] Performed By: #### 5 7021-8 ####[facility] [id number] [place] [address] WBC (Bld) [#/Vol] 6.44 10*3/uL Normal 3.70-11.00 [facility] Comment on above: Order Comment: Speci men Type: BLOOD SPECIMENOrdering Facility: [facility] Address: [address] [place] [address] Performed By: #### 5 7021-8 ####[facility] [id number] [place] [address] CNOVSPon 04-25-2023 CNOVSP Normal [facility] Comprehensive metabolic 2000 panelon 04-25-2023 Albumin [Mass/Vol] 4.0 g/dL Normal 3.9-4.9 [facility] Comment on above: Order Comment: Speci men Type: BLOOD SPECIMENOrdering Facility: External Submitter Address: , , Performed By: #### 2 4323-8 ####[facility] LABIA [id number] [place] [address] ALP [Catalytic activity/Vol] 75 U/L Normal 38-113 [facility] Comment on above: Order Comment: Speci men Type: BLOOD SPECIMENOrdering Facility: External Submitter Address: , , Performed By: #### 2 4323-8 ####[facility] LABIA [id number] [place] [address] ALT [Catalytic activity/Vol] 17 U/L Normal 10-54 [facility] Comment on above: Order Comment: Speci men Type: BLOOD SPECIMENOrdering Facility: External Submitter Address: , , Performed By: #### 2 4323-8 ####[facility] LABCLIA [id number] [place] [address] Anion gap [Moles/Vol] 7 mmol/L Low 9-18 [facility] Comment on above: Order Comment: Speci men Type: BLOOD SPECIMENOrdering Facility: External Submitter Address: , , Performed By: #### 2 4323-8 ####[facility] LABCLIA [id number] [place] [address] AST [Catalytic activity/Vol] 26 U/L Normal 14-40 [facility] Comment on above: Order Comment: Speci men Type: BLOOD SPECIMENOrdering Facility: External Submitter Address: , , Performed By: #### 2 4323-8 ####[facility] LABCLIA [id number] [place] [address] Bilirubin [Mass/Vol] 0.4 mg/dL Normal 0.2-1.3 [facility] Comment on above: Order Comment: Speci men Type: BLOOD SPECIMENOrdering Facility: External Submitter Address: , , Performed By: #### 2 4323-8 ####[facility] LABCLIA [id number] [place] [address] Calcium [Mass/Vol] 8.9 mg/dL Normal 8.5-10.2 [facility] Comment on above: Order Comment: Speci men Type: BLOOD SPECIMENOrdering Facility: External Submitter Address: , , Performed By: #### 2 4323-8 ####[facility] LABCLIA [id number] [place] [address] Chloride [Moles/Vol] 106 mmol/L High 97-105 [facility] Comment on above: Order Comment: Speci men Type: BLOOD SPECIMENOrdering Facility: External Submitter Address: , , Performed By: #### 2 4323-8 ####[facility] LABCLIA [id number] [place] [address] CO2 [Moles/Vol] 26 mmol/L Normal 22-30 [facility] Comment on above: Order Comment: Speci men Type: BLOOD SPECIMENOrdering Facility: External Submitter Address: , , Performed By: #### 2 4323-8 ####[facility] LABCLIA [id number] [place] [address] Creatinine [Mass/Vol] 1.71 mg/dL High 0.73-1.22 [facility] Comment on above: Order Comment: Speci men Type: BLOOD SPECIMENOrdering Facility: External Submitter Address: , , Performed By: #### 2 4323-8 ####[facility] LABIA [id number] [place] [address] ESTIMATED GLOMERULAR FILTRATION RATE 39 mL/min/1.73m??? Low >=60 [facility] Comment on above: Order Comment: Speci [...] actual GFR. Performed By: #### 2 4323-8 ####[facility] LABIA [id number] [place] [address] Glucose [Mass/Vol] 111 mg/dL High 74-99 [facility] Comment on above: Order Comment: Speci oralia Type: BLOOD SPECIMENOrdering Facility: External Submitter Address: , , Result Comment: The [place] Diabetes Association (ADA) provides guidance for cutoff [...] Standards of Medical Care in Diabetes 2016, [place] [employer]. Diabetes Care. 2016.39(Suppl 1). Performed By: #### 2 4323-8 ####[facility] LABCLIA [id number] [place] [address] Potassium [Moles/Vol] 3.9 mmol/L Normal 3.7-5.1 [facility] Comment on above: Order Comment: Vero barton Type: BLOOD SPECIMENOrdering Facility: External Submitter Address: , , Performed By: #### 2 432-8 ####[facility] LABCLIA [id number] [place] [address] Protein [Mass/Vol] 6.0 g/dL Low 6.3-8.0 [facility] Comment on above: Order Comment: Vero barton Type: BLOOD SPECIMENOrdering Facility: External Submitter Address: , , Performed By: #### 2 4323-8 ####[facility] LABIA [id number] [place] [address] Sodium [Moles/Vol] 139 mmol/L Normal 136-144 [facility] Comment on above: Order Comment: Vero barton Type: BLOOD SPECIMENOrdering Facility: External Submitter Address: , , Performed By: #### 2 4323-8 ####[facility] LABCLIA [id number] [place] [address] Urea nitrogen [Mass/Vol] 27 mg/dL High 9-24 [facility] Comment on above: Order Comment: Vero barton Type: BLOOD SPECIMENOrdering Facility: External Submitter Address: , , Performed By: #### 2 4323-8 ####[facility] LABCLIA [id number] [place] [address] Beverly Koehler 04-25-20 Cortisol [Mass/Vol] 8.8 ug/dL Normal 4.8-19.5 [facility] Comment on above: Order Comment: Vero barton Type: BLOOD SPECIMENOrdering Facility: External Submitter Address: , , Result Comment: Prov ided reference range is from 6-10 AM sample collection time.Cortisol Reference Range: 6-10 AM = 4.8-19.5 ug/dL, 4-8 PM = 2.5-11.9 ug/dL Performed By: #### 3 016-3, 2143-6, 3024-7, 3053-6 ####[facility] LABCLIA [id number] [address] [facility] HbA1c (Bld)on 04-25-2023 Average glucose Estimated from glycated hemoglobin (Bld) [Mass/Vol] 97 mg/dL Normal [facility] Comment on above: Order Comment: Vero barton Type: BLOOD SPECIMENOrdering Facility: [facility] Address: [address] [address] Result Comment: eAG: (Estimated average glucose) is a calculated value from HgbA1c and is operations support representative of the average blood glucose level in the last 2-3 month period. Performed By: #### 5 5454-3 ####[facility] LABCLIA [id number] [address] [place] HbA1c (Bld) [Mass fraction] 5.0 % Normal 4.3-5.6 [facility] Comment on above: Order Comment: Vero barton Type: BLOOD SPECIMENOrdering Facility: [facility] Address: [address] [address] Result Comment: [place] Diabetes Association guidelines indicate that patients with HgbA1c in the range 5.7-6.4% are at increased risk for development of diabetes, and intervention by lifestyle modification may be beneficial. HgbA1c greater or equal to 6.5% is considered diagnostic of diabetes. Performed By: #### 5 5454-3 ####[facility] LABCLIA [id number] [place] [address] [place] T3 SerPl-mCncon 04-25-2023 T3 [Mass/Vol] 99 ng/dL Normal 79-165 [facility] Comment on above: Order Comment: Speci men Type: BLOOD SPECIMENOrdering Facility: External Submitter Address: , , Performed By: #### 3 016-3, 6, 3024-04, 3053-03 ####[facility] LABCLIA [id number] [place] [address] [place] T4 Free SerPl-mCncon 023 Free T4 [Mass/Vol] 1.1 ng/dL Normal 0.9-1.7 [facility] Comment on above: Order Comment: Speci men Type: BLOOD SPECIMENOrdering Facility: External Submitter Address: , , Performed By: #### 3 016-3, 2143-03, 3024-04, 3053-03 ####[facility] LABCLIA [id number] [place] [address] [place] TSH SerPl-aCncon 04-25-2023 TSH Qn 2.800 m[IU]/L Normal 0.270-4.200 [facility] Comment on above: Order Comment: Speci men Type: BLOOD SPECIMENOrdering Facility: External Submitter Address: , , Performed By: #### 3 016-3, 6, 7, 3053-03 ####[facility] LABCLIA [id number] [place] [address] [place] CBC W Auto Differential pane l (Bld)on 04-04-2023 Basophils (Bld) [#/Vol] 0.06 10*3/uL Normal <0.11 [facility] Comment on above: Order Comment: Speci men Type: BLOOD SPECIMENOrdering Facility: [facility] Address: [address] [place] [address] Performed By: #### 5 7021-8 ####[facility] LABCLIA [id number] [place] [address] Basophils/100 WBC (Bld) 0.9 % Normal [facility] Comment on above: Order Comment: Speci men Type: BLOOD SPECIMENOrdering Facility: [facility] Address: [address] [place] [address] Performed By: #### 5 7021-8 ####[facility] LABCLIA [id number] [place] [address] Differential cell count method Nom (Bld) Auto Normal [facility] Comment on above: Order Comment: Speci men Type: BLOOD SPECIMENOrdering Facility: [facility] Address: [address] [place] [address] Performed By: #### 5 7021-8 ####[facility] LABCLIA [id number] [place] [address] Eosinophils (Bld) [#/Vol] 0.32 10*3/uL Normal <0.46 [facility] Comment on above: Order Comment: Speci men Type: BLOOD SPECIMENOrdering Facility: [facility] Address: [address] [place] [address] Performed By: #### 5 7021-8 ####[facility] LABCLIA [id number] [place] [address] Eosinophils/100 WBC (Bld) 4.8 % Normal [facility] Comment on above: Order Comment: Speci men Type: BLOOD SPECIMENOrdering Facility: [facility] Address: [address] [place] [address] Performed By: #### 5 7021-8 ####[facility] LABIA [id number] [place] [address] Erythrocyte distribution width (RBC) [Ratio] 15.8 % High 11.5-15.0 [facility] Comment on above: Order Comment: Speci men Type: BLOOD SPECIMENOrdering Facility: [facility] Address: [address] [place] [address] Performed By: #### 5 7021-8 ####[facility] LABCLIA [id number] [place] [address] Hematocrit (Bld) [Volume fraction] 38.8 % Low 39.0-51.0 [facility] Comment on above: Order Comment: Speci men Type: BLOOD SPECIMENOrdering Facility: [facility] Address: [address] [place] [address] Performed By: #### 5 7021-8 ####[facility] LABCLIA [id number] [place] [address] Hemoglobin (Bld) [Mass/Vol] 12.8 g/dL Low 13.0-17.0 [facility] Comment on above: Order Comment: Speci men Type: BLOOD SPECIMENOrdering Facility: [facility] Address: [address] [place] [address] Performed By: #### 5 7021-8 ####[facility] LABCLIA [id number] [place] [address] Immature granulocytes (Bld) [#/Vol] 0.03 10*3/uL Normal <0.10 [facility] Comment on above: Order Comment: Speci men Type: BLOOD SPECIMENOrdering Facility: [facility] Address: [address] [place] [address] Performed By: #### 5 7021-8 ####[facility] LABCLIA [id number] [place] [address] Immature granulocytes/100 WBC (Bld) 0.5 % Normal [facility] [facility] Comment on above: Order Comment: Speci men Type: BLOOD SPECIMENOrdering Facility: [facility] Address: [address] [place] [address] Performed By: #### 5 7021-8 ####[facility] LABCLIA [id number] [place] [address] Lymphocytes (Bld) [#/Vol] 0.85 10*3/uL Low 1.00-4.00 [facility] Comment on above: Order Comment: Speci men Type: BLOOD SPECIMENOrdering Facility: [facility] Address: [address] [place] [address] Performed By: #### 5 7021-8 ####[facility] LABCLIA [id number] [place] [address] Lymphocytes/100 WBC (Bld) 12.8 % Normal [facility] Comment on above: Order Comment: Speci men Type: BLOOD SPECIMENOrdering Facility: [facility] Address: [address] [place] [address] Performed By: #### 5 7021-8 ####[facility] LABCLIA [id number] [place] [address] MCH (RBC) [Entitic mass] 27.8 pg Normal 26.0-34.0 [facility] Comment on above: Order Comment: Speci men Type: BLOOD SPECIMENOrdering Facility: [facility] Address: [address] [place] [address] Performed By: #### 5 7021-8 ####[facility] LABCLIA [id number] [place] [address] MCHC (RBC) [Mass/Vol] 33.0 g/dL Normal 30.5-36.0 [facility] Comment on above: Order Comment: Speci men Type: BLOOD SPECIMENOrdering Facility: [facility] Address: [address] [place] [address] Performed By: #### 5 7021-8 ####[facility] LABCLIA [id number] [place] [address] MCV (RBC) [Entitic vol] 84.2 fL Normal 80.0-100.0 [facility] Comment on above: Order Comment: Speci men Type: BLOOD SPECIMENOrdering Facility: [facility] Address: [address] [place] [address] Performed By: #### 5 7021-8 ####[facility] LABCLIA [id number] [place] [address] Monocytes (Bld) [#/Vol] 0.48 10*3/uL Normal <0.87 [facility] Comment on above: Order Comment: Speci men Type: BLOOD SPECIMENOrdering Facility: [facility] Address: [address] [place] [address] Performed By: #### 5 7021-8 ####[facility] LABCLIA [id number] [place] [address] Monocytes/100 WBC (Bld) 7.3 % Normal [facility] Comment on above: Order Comment: Speci men Type: BLOOD SPECIMENOrdering Facility: [facility] Address: [address] [place] [address] Performed By: #### 5 7021-8 ####[facility] LABCLIA [id number] [place] [address] Neutrophils (Bld) [#/Vol] 4.88 10*3/uL Normal 1.45-7.50 [facility] Comment on above: Order Comment: Speci men Type: BLOOD SPECIMENOrdering Facility: [facility] Address: [address] [place] [address] Performed By: #### 5 7021-8 ####[facility] LABCLIA [id number] [place] [address] Neutrophils/100 WBC (Bld) 73.7 % Normal [facility] Comment on above: Order Comment: Speci men Type: BLOOD SPECIMENOrdering Facility: [facility] Address: [address] [place] [address] Performed By: #### 5 7021-8 ####[facility] LABCLIA [id number] [place] [address] Nucleated RBC (Bld) [#/Vol] 10*3/uL Normal <0.01 [facility] Comment on above: Order Comment: Speci men Type: BLOOD SPECIMENOrdering Facility: [facility] Address: [address] [address] Performed By: #### 5 7021-8 ####[facility] LABCLIA [id number] [place] [address] Nucleated RBC/100 WBC (Bld) [Ratio] 0.0 /100 WBC Normal [facility] Comment on above: Order Comment: Speci men Type: BLOOD SPECIMENOrdering Facility: [facility] Address: [address] [address] Performed By: #### 5 7021-8 ####[facility] LABCLIA [id number] [place] [address] Platelet mean volume (Bld) [Entitic vol] 8.8 fL Low 9.0-12.7 [facility] Comment on above: Order Comment: Speci men Type: BLOOD SPECIMENOrdering Facility: [facility] Address: [address] [address] Performed By: #### 5 7021-8 ####[facility] LABCLIA [id number] [place] [address] Platelets (Bld) [#/Vol] 213 10*3/uL Normal 150-400 [facility] Comment on above: Order Comment: Speci men Type: BLOOD SPECIMENOrdering Facility: [facility] Address: [address] [address] Performed By: #### 5 7021-8 ####[facility] LABCLIA [id number] [place] [address] RBC (Bld) [#/Vol] 4.61 10*6/uL Normal 4.20-6.00 [facility] Comment on above: Order Comment: Speci men Type: BLOOD SPECIMENOrdering Facility: [facility] Address: [address] [address] Performed By: #### 5 7021-8 ####[facility] LABCLIA [id number] [place] [address] WBC (Bld) [#/Vol] 6.62 10*3/uL Normal 3.70-11.00 [facility] Comment on above: Order Comment: Speci men Type: BLOOD SPECIMENOrdering Facility: [facility] Address: [address] [place] [address] Performed By: #### 5 7021-8 ####[facility] LABCLIA [id number] [place] [address] CNOVSPon 04-04-2023 CNOVSP Normal [facility] metabolic 2000 panelon 04-04-2023 Albumin [Mass/Vol] 4.4 g/dL Normal 3.9-4.9 [facility] Comment on above: Order Comment: Speci men Type: BLOOD SPECIMENOrdering Facility: [facility] Address: [address] [place] [address] Performed By: #### 2 4323-8 ####[facility] LABCLIA [id number] [place] [address] ALP [Catalytic activity/Vol] 64 U/L Normal 38-113 [facility] Comment on above: Order Comment: Speci men Type: BLOOD SPECIMENOrdering Facility: [facility] Address: [address] [place] [address] Performed By: #### 2 4323-8 ####[facility] LABCLIA [id number] [place] [address] ALT [Catalytic activity/Vol] 13 U/L Normal 10-54 [facility] Comment on above: Order Comment: Speci men Type: BLOOD SPECIMENOrdering Facility: [facility] Address: [address] [place] [address] Performed By: #### 2 4323-8 ####[facility] LABCLIA [id number] [place] [address] Anion gap [Moles/Vol] 10 mmol/L Normal 9-18 [facility] Comment on above: Order Comment: Speci men Type: BLOOD SPECIMENOrdering Facility: [facility] Address: [address] [address] Performed By: #### 2 4323-8 ####[facility] LABCLIA [id number] [place] [address] AST [Catalytic activity/Vol] 23 U/L Normal 14-40 [facility] Comment on above: Order Comment: Speci men Type: BLOOD SPECIMENOrdering Facility: [facility] Address: [address] [address] Performed By: #### 2 4323-8 ####[facility] LABCLIA [id number] [place] [address] Bilirubin [Mass/Vol] 0.5 mg/dL Normal 0.2-1.3 [facility] Comment on above: Order Comment: Speci men Type: BLOOD SPECIMENOrdering Facility: [facility] Address: [address] [address] Performed By: #### 2 4323-8 ####[facility] LABCLIA [id number] [place] [address] Calcium [Mass/Vol] 9.3 mg/dL Normal 8.5-10.2 [facility] Comment on above: Order Comment: Speci men Type: BLOOD SPECIMENOrdering Facility: [facility] Address: [address] [address] Performed By: #### 2 4323-8 ####[facility] LABCLIA [id number] [place] [address] Chloride [Moles/Vol] 104 mmol/L Normal 97-105 [facility] Comment on above: Order Comment: Speci men Type: BLOOD SPECIMENOrdering Facility: [facility] Address: [address] [place] [address] Performed By: #### 2 4323-8 ####[facility] LABCLIA [id number] [place] [address] CO2 [Moles/Vol] 26 mmol/L Normal 22-30 [facility] Comment on above: Order Comment: Speci men Type: BLOOD SPECIMENOrdering Facility: [facility] Address: [address] [place] [address] Performed By: #### 2 4323-8 ####[facility] LABCLIA [id number] [place] [address] Creatinine [Mass/Vol] 2.05 mg/dL High 0.73-1.22 [facility] Comment on above: Order Comment: Speci men Type: BLOOD SPECIMENOrdering Facility: [facility] Address: [address] [place] [address] Performed By: #### 2 4323-8 ####[facility] LABCLIA [id number] [place] [address] ESTIMATED GLOMERULAR FILTRATION RATE 32 mL/min/1.73m??? Low >=60 [facility] Comment on above: Order Comment: Speci men Type: BLOOD SPECIMENOrdering Facility: [facility] Address: [address] [place] [address] Result Comment: Viviana mated Glomerular Filtration Rate [...] actual GFR. Performed By: #### 2 4323-8 ####[facility] LABCLIA [id number] [place] [address] Glucose [Mass/Vol] 127 mg/dL High 74-99 [facility] Comment on above: Order Comment: Speci men Type: BLOOD SPECIMENOrdering Facility: [facility] Address: [address] [place] [address] Result Comment: The [place] Diabetes Association (ADA) provides guidance for cutoff [...] Standards of Medical Care in Diabetes 2016, [place] [employer]. Diabetes Care. 2016.39(Suppl 1). Performed By: #### 2 4323-8 ####[facility] LABCLIA [id number] [place] [address] Potassium [Moles/Vol] 3.9 mmol/L Normal 3.7-5.1 [facility] Comment on above: Order Comment: Speci men Type: BLOOD SPECIMENOrdering Facility: [facility] Address: [address] [address] Performed By: #### 2 4323-8 ####[facility] LABCLIA [id number] [place] [address] Protein [Mass/Vol] 6.3 g/dL Normal 6.3-8.0 [facility] Comment on above: Order Comment: Speci men Type: BLOOD SPECIMENOrdering Facility: [facility] Address: [address] [place] [address] Performed By: #### 2 4323-8 ####[facility] LABCLIA [id number] [place] [address] Sodium [Moles/Vol] 140 mmol/L Normal 136-144 [facility] Comment on above: Order Comment: Speci men Type: BLOOD SPECIMENOrdering Facility: [facility] Address: [address] [address] Performed By: #### 2 4323-8 ####[facility] LABCLIA [id number] [place] [id number] Urea nitrogen [Mass/Vol] 26 mg/dL High 07-07 [facility] Comment on above: Order Comment: Speci men Type: BLOOD SPECIMENOrdering Facility: [facility] Address: [address] [place] [address] Performed By: #### 2 4323-8 ####[facility] LABCLIA [id number] [place] [address] Beverly Chewl-mCncon 04-04-20 Cortisol [Mass/Vol] 9.9 ug/dL Normal 4.8-19.5 [facility] Comment on above: Order Comment: Speci men Type: BLOOD SPECIMENOrdering Facility: [facility] Address: [address] [place] [address] Result Comment: Prov ided reference range is from 6-10 AM sample collection time.Cortisol Reference Range: 6-10 AM = 4.8-19.5 ug/dL, 4-8 PM = 2.5-11.9 ug/dL Performed By: #### 2 143-6, 3016-3 ####[facility] LABCLIA [id number] [place] [address] [place] HbA1c (Bld)on 04-04-2023 Average glucose Estimated from glycated hemoglobin (Bld) [Mass/Vol] 100 mg/dL Normal [facility] Comment on above: Order Comment: Speci men Type: BLOOD SPECIMENOrdering Facility: [facility] Address: [address] [place] [address] Result Comment: eAG: (Estimated average glucose) is a calculated value from HgbA1c and is operations support representative of the average blood glucose level in the last 2-3 month period. Performed By: #### 5 5454-3 ####[facility] LABCLIA [id number] [place] [address] [place] HbA1c (Bld) [Mass fraction] 5.1 % Normal 4.3-5.6 [facility] Comment on above: Order Comment: Speci men Type: BLOOD SPECIMENOrdering Facility: [facility] Address: [place] [address] Result Comment: [place] Diabetes Association guidelines indicate that patients with HgbA1c in the range 5.7-6.4% are at increased risk for development of diabetes, and intervention by lifestyle modification may be beneficial. HgbA1c greater or equal to 6.5% is considered diagnostic of diabetes. Performed By: #### 5 5454-3 ####[facility] LABCLIA [id number] [address] [address] [facility] TSH SerPl-aCncon 04-04-2023 TSH Qn 2.620 m[IU]/L Normal 0.270-4.200 [facility] Comment on above: Order Comment: Speci men Type: BLOOD SPECIMENOrdering Facility: [facility] Address: [address] [place] [address] Performed By: #### 2 143-6, 3016-3 ####[facility] LABCLIA [id number] [place] [id number] 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 Pt got up from the dinner table to put his plate in the sink when he felt dizzy. When pt sat down, it resolved. He got up again with the same dizziness. It went away as he was getting in the vehicle to go to the ER in [place]. Pt denies any other symptoms since. Orthostatics were negative at [facility]. GCS 15 Normal [facility] EDPROVon 03-27-2023 EDPROV HPI Chief Complaint Patient [...] was evaluated in the emergency department at [facility] where full cardiac work-up was performed. Patient was noted to have mild elevation of his troponin. No changes on EKG. Patient was to have pacemaker interrogated by [employer] however operations support representative was not available at that time [...] 0334 Review of patient's medical records from [place] shows EKG which demonstrates left bundle branch [...] arrhythmia or bradycardia, dehydration, or orthostatic [NF] 0417 spoke to [employer] [facility] who interrogated device. 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 No signs of any arrhythmias or bradycardic episodes. Device working appropriately. At this time patient's in no acute distress says he feels fine. Troponin was repeated as initial troponin was noted to be mildly elevated. Repeat noted to be 0.07. 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 Reviewed patient's initial presentation (more content not included)... Normal [facility] Office Visiton 03-27-2023 Follow-up visit [id number] Juan Jose Austin 1940 M Date Provider Department Center 03/27/2023 [id number]-YBTPXCYBYDAGOBERTO JAMES CARD [facility] Family History Problem Relation Age of Onset Heart failure Mother Family Status - Relation Status Age at Mother Level of Service:12947 SD POSTOP FOLLOW UP VISIT RELATED TO ORIGINAL PX Normal [facility] TROPONIN Ion 03-27-2023 Troponin I.cardiac [Mass/Vol] 0.07 ng/mL High 0.00-0.04 [facility] Comment on above: Performed By: #### L AB18 #### [facility] ([facility]) [address] [place] [address] 30on 03-19-2023 30 The patient is Moderately [...] and behaviors that affect risk of falls [place] fall precautions as indicated by assessment Educate patient/family on patient safety, including physical limitations Instruct patient to call for assistance with activity based on assessment Modify environment to reduce risk of injury Problem: Discharge Planning Goal: Discharge to home or other facility with appropriate resources Outcome: Progressing Flowsheets (Taken 03/19/2023 0937) Discharge to home or other facility with appropriate resources: Identify barriers to discharge with patient and caregiver Arrange for needed discharge resources and transportation as appropriate Identify discharge learning needs (meds, wound care, etc) Problem: Chronic Conditions and Co-morbidities Goal: Patient's chronic conditions and co-morbidity symptoms are monitored and maintained or improved Outcome: Progressing Flowsheets (Taken 03/19/2023 09) Care Plan - Patient's Chronic Conditions and [...] and prevent overall improvement and discharge Normal [facility] 30 Problem: Pain - Adul t Goal: [...] make progress toward the following goals. Normal [facility] BASIC METABOLIC PANELon 06-0 Anion gap [Moles/Vol] 9 mmol/L Normal - [facility] Comment on above: Performed By: #### L AB15 #### [facility] ([facility]) [address] [address] Calcium [Mass/Vol] 8.7 mg/dL Normal 8.6-10.3 [facility] Comment on above: Performed By: #### L AB15 #### [facility] ([facility]) [address] [place] [address] Chloride [Moles/Vol] 111 mmol/L High 98-107 [facility] Comment on above: Performed By: #### L AB15 #### [facility] ([facility]) [address] [place], [place] [address] CO2 [Moles/Vol] 24 mmol/L Normal 21-31 [facility] Comment on above: Performed By: #### L AB15 #### [facility] ([facility]) [address] [place] [address] Creatinine [Mass/Vol] 1.95 mg/dL High 0.70-1.30 [facility] Comment on above: Performed By: #### L AB15 #### [facility] ([facility]) [address] [place], [place] [address] GLOMERULAR FILTRATION RATE ML/MIN/1.73 SQ M.PREDICTED 33.5 mL/min/1.73m*2 Low >60.0 [facility] Comment on above: Result Comment: The [facility]???s estimated glomerular filtration rate (eGFR) will no [...] of individuals. Performed By: #### L AB15 #### [facility] ([facility]) [address] [place] [address] Glucose [Mass/Vol] 111 mg/dL High 70-100 [facility] Comment on above: Performed By: #### L AB15 #### [facility] ([facility]) [address] [place] [address] Potassium [Moles/Vol] 4.2 mmol/L Normal 3.5-5.1 [facility] Comment on above: Performed By: #### L AB15 #### [facility] ([facility]) [address] [place] [address] Sodium [Moles/Vol] 140 mmol/L Normal 136-145 [facility] Comment on above: Performed By: #### L AB15 #### [facility] ([facility]) [address] [place] [address] Urea nitrogen [Mass/Vol] 36 mg/dL High 7-25 [facility] Comment on above: Performed By: #### L AB15 #### [facility] ([facility]) [address] [place] [address] UREA NITROGEN/CREATININE (MASS RATIO) IN SER/PLAS 18.5 Normal [facility] Comment on above: Performed By: #### L AB15 #### [facility] ([facility]) [address] [place] [address] CBCon 03-19-2023 Erythrocyte distribution width (RBC) [Ratio] 14.8 % Normal 11.5-15.0 [facility] Comment on above: Performed By: #### L AB18 #### [facility] ([facility]) [address] [place] [address] ERYTHROCYTE MEAN CORPUSCULAR HEMOGLOBIN CONCENTRATION (G/DL) BY AUTOMATED 33.9 g/dL Normal 32.0-35.0 [facility] Comment on above: Performed By: #### L AB18 #### [facility] [address] [place] [address] Hematocrit (Bld) [Volume fraction] 34.8 % Low 39.0-55.0 [facility] Comment on above: Performed By: #### L AB18 #### [facility] ([facility]) [address] [place] [address] Hemoglobin (Bld) [Mass/Vol] 11.8 g/dL Low 13.0-17.0 [facility] Comment on above: Performed By: #### L AB18 #### [facility] ([facility]) [address] [place] [address] MCH (RBC) [Entitic mass] 27.9 pg Normal 27.0-33.0 [facility] Comment on above: Performed By: #### L AB18 #### [facility] ([facility]) [address] [place] [address] MCV (RBC) [Entitic vol] 82.3 fL Normal 82.0-98.0 [facility] Comment on above: Performed By: #### L AB18 #### [facility] ([facility]) [address] [place] [address] PLATELETS (10*3/UL) IN BLOOD AUTOMATED COUNT 180 10*3/uL Normal 150-400 [facility] Comment on above: Performed By: #### L AB18 #### [facility] ([facility]) [address] [place] [address] RBC (Bld) [#/Vol] 4.23 10*6/uL Normal 4.20-5.70 [facility] Comment on above: Performed By: #### L AB18 #### [facility] ([facility]) [address] [place] [address] WBC (Bld) [#/Vol] 6.85 10*3/uL Normal 4.00-10.60 [facility] Comment on above: Performed By: #### L AB18 #### [facility] ([facility]) [address] [place] [address] NURSNOTEon 03-19-2023 NURSNOTE Pt discharged home with junior by car. [facility] 30on 03-18-2023 30 Daily Case Managemen t [...] Reason for OT? Answer: weakness 03/18/23 1108 [facility] 30 The patient is Moderately Stable - Low risk of patient condition declining or worsening The patient's goals for the shift include comfort and rest The clinical goals for the shift include monitor vitals [facility] 30 Problem: Pain - Adul t Goal: [...] to make progress toward the following goals. [facility] HPon 03-18-2023 HPI: Juan Jose Austin is a 82 y.o. male who presents to the EP lab for a permanent pacemaker implantation. He is admitted to the hospital with an unwitnessed syncope episode. He follows with electrophysiology outpatient and was scheduled to have a permanent pacemaker placed on Saturday, however he had felt lightheadedness/dizzin ess and had an unwitnessed syncopal episode. On [...] a past medical history of Atrial flutter ([facility]), Cancer ([facility]), Chronic systolic heart failure ([facility]), CKD (chronic kidney disease), stage III ([facility]), Hematuria, Hypertension, and LBBB (left bundle branch [...] Value Ventricular Rate 39 Atrial Rate 39 SD Interval 342 QRS DURATION 156 QT Interval 504 QTC CALCULATION(BAZETT) 405 P [employer] 17 R-[employer] -84 T Wave [employer] 10 Impression Marked sinus bradycardia with 1st degree A-V block Left axis deviation Right bundle branch block Inferior infarct , age undetermined Anterior infarct , age undetermined Abnormal ECG No previous ECGs (more content not included)... Normal [facility] 30on 03-17-2023 30 The patient is Moderately Stable - Low risk of patient condition declining or worsening The patient's goals for the shift include Comfort The clinical goals for the shift include VSS Normal [facility] 30 The patient is Moderately Stable - Low risk of patient condition declining or worsening The patient's goals for the shift include Comfort The clinical goals for the shift include VSS Normal [facility] APTTon 03-17-2023 ACTIVATED PARTIAL THROMBOPLASTIN TIME IN PPP BY COAGULATION ASSAY 26.6 Seconds Normal 25.0-35.0 [facility] Comment on above: Result Comment: Clin ical significance of the APTT is questionable in the presence of heparin. Performed By: #### L AB325 ####[facility] ([facility])[address] [place] [address] B-TYPE NATRIURETIC PEPTIDEon 03-17-2023 Natriuretic peptide B (Bld) [Mass/Vol] 484 pg/mL High 0-100 [facility] Comment on above: Performed By: #### L AB106 ####[facility] ([facility])[address] [place] [address] CBC WITH AUTO DIFFERENTIALon 03-17-2023 Basophils (Bld) [#/Vol] 0.03 10*3/uL Normal 0.00-0.20 [facility] Comment on above: Performed By: #### L [id number] ####[facility] ([facility])[address] [place] [address] Basophils/100 WBC (Bld) 0.6 % Normal 0.0-1.0 [facility] Comment on above: Performed By: #### L [id number] ####[facility] ([facility])[address] [place] [address] Eosinophils (Bld) [#/Vol] 0.13 10*3/uL Normal 0.00-0.50 [facility] Comment on above: Performed By: #### L [id number] ####[facility] ([facility])[address] [place] [address] Eosinophils/100 WBC (Bld) 2.6 % Normal 0.0-6.0 [facility] Comment on above: Performed By: #### L [id number] ####[facility] ([facility])[address] [place] [address] Erythrocyte distribution width (RBC) [Ratio] 14.9 % Normal 11.5-15.0 [facility] Comment on above: Performed By: #### L [id number] ####[facility] [place] [address] ERYTHROCYTE MEAN CORPUSCULAR HEMOGLOBIN CONCENTRATION (G/DL) BY AUTOMATED 32.4 g/dL Normal 32.0-35.0 [facility] Comment on above: Performed By: #### L [id number] ####[facility] ([facility])[address] [place] [address] Hematocrit (Bld) [Volume fraction] 36.4 % Low 39.0-55.0 [facility] Comment on above: Performed By: #### L [id number] ####[facility] ([facility] [place] [address] Hemoglobin (Bld) [Mass/Vol] 11.8 g/dL Low 13.0-17.0 [facility] Comment on above: Performed By: #### L [id number] ####[facility] ([facility])[address] [place] [address] Immature granulocytes (Bld) [#/Vol] 0.02 10*3/uL Normal 0.00-0.20 [facility] Comment on above: Performed By: #### L [id number] ####[facility] ([facility])[address] [place] [address] Immature granulocytes/100 WBC (Bld) 0.4 % Normal 0.0-1.0 [facility] Comment on above: Performed By: #### L [id number] ####[facility] ([facility])[address] [place] [address] Lymphocytes (Bld) [#/Vol] 0.72 10*3/uL Low 1.20-4.00 [facility] Comment on above: Performed By: #### L [id number] ####[facility] ([facility])[address] [place] [address] Lymphocytes/100 WBC (Bld) 14.6 % Low 20.0-45.0 [facility] Comment on above: Performed By: #### L [id number] ####[facility] ([facility] [place] [address] MCH (RBC) [Entitic mass] 27.3 pg Normal 27.0-33.0 [facility] Comment on above: Performed By: #### L [id number] ####[facility] ([facility] [place] [address] MCV (RBC) [Entitic vol] 84.1 fL Normal 82.0-98.0 [facility] Comment on above: Performed By: #### L [id number] ####[facility] ([facility] [place] [address] Monocytes (Bld) [#/Vol] 0.39 10*3/uL Normal 0.10-1.00 [facility] Comment on above: Performed By: #### L [id number] ####[facility] ([facility] [place] [address] Monocytes/100 WBC (Bld) 7.9 % Normal 5.0-12.0 [facility] Comment on above: Performed By: #### L [id number] ####[facility] ([facility] [place] [address] Neutrophils (Bld) [#/Vol] 3.65 10*3/uL Normal 1.60-7.60 [facility] Comment on above: Performed By: #### L [id number] ####[facility] ([facility])[address] [place] [address] Neutrophils/100 WBC (Bld) 73.9 % High 40.0-72.0 [facility] Comment on above: Performed By: #### L [id number] ####[facility] ([facility])[address] [place] [address] NRBC (PER 100 WBCS) BY AUTOMATED COUNT 0.0 % Normal 0 [facility] Comment on above: Performed By: #### L [id number] ####[facility] ([facility])[address] [place] [address] PLATELETS (10*3/UL) IN BLOOD AUTOMATED COUNT 172 10*3/uL Normal 150-400 [facility] Comment on above: Performed By: #### L [id number] ####[facility] ([facility])[address] [place] [address] RBC (Bld) [#/Vol] 4.33 10*6/uL Normal 4.20-5.70 [facility] Comment on above: Performed By: #### L [id number] ####[facility] ([facility])[address] [place] [address] WBC (Bld) [#/Vol] 4.94 10*3/uL Normal 4.00-10.60 [facility] Comment on above: Performed By: #### L [id number] ####[facility] ([facility])[address] [place] [address] COMPREHENSIVE METABOLIC PANE Taj 03-17-2023 Albumin [Mass/Vol] 4.2 g/dL Normal 3.5-5.7 [facility] Comment on above: Performed By: #### L [id number] #### [facility] ([facility]) [address] [place] [address] ALP [Catalytic activity/Vol] 61 U/L Normal 34-104 [facility] Comment on above: Performed By: #### L [id number] #### [facility] [address] [place] [place] [address] ALT [Catalytic activity/Vol] 14 U/L Normal 7-52 [facility] Comment on above: Performed By: #### L [id number] #### [facility] ([facility] [address] [place] [address] Anion gap [Moles/Vol] 14 mmol/L Normal 7-20 [facility] Comment on above: Performed By: #### L [id number] #### [facility] ([facility]) [address] [place] [address] AST [Catalytic activity/Vol] 17 U/L Normal 13-39 [facility] Comment on above: Performed By: #### L [id number] #### [facility] ([facility]) [address] [place] [place] [address] Bilirubin [Mass/Vol] 0.6 mg/dL Normal 0.3-1.0 [facility] Comment on above: Performed By: #### L [id number] #### [facility] ([facility] [address] [place] [place] [address] Calcium [Mass/Vol] 9.0 mg/dL Normal 8.6-10.3 [facility] Comment on above: Performed By: #### L [id number] #### [facility] ([facility] [address] [place] [address] Chloride [Moles/Vol] 108 mmol/L High 98-107 [facility] Comment on above: Performed By: #### L [id number] #### [facility] ([facility]) [address] [place] [address] CO2 [Moles/Vol] 20 mmol/L Low 21-31 [facility] Comment on above: Performed By: #### L [id number] #### [facility] ([facility] [address] [place] [address] Creatinine [Mass/Vol] 2.26 mg/dL High 0.70-1.30 [facility] Comment on above: Performed By: #### L [id number] #### [facility] ([facility]) [address] [place] [address] GLOMERULAR FILTRATION RATE ML/MIN/1.73 SQ M.PREDICTED 28.1 mL/min/1.73m*2 Low >60.0 [facility] Comment on above: Result Comment: [facility]???s estimated glomerular filtration rate (eGFR) will no [...] group of individuals. Performed By: #### L [id number] #### [facility] ([facility]) [address] [place] [address] Glucose [Mass/Vol] 158 mg/dL High 70-100 [facility] Comment on above: Performed By: #### L [id number] #### [facility] ([facility]) [address] [place] [address] Potassium [Moles/Vol] 4.2 mmol/L Normal 3.5-5.1 [facility] Comment on above: Performed By: #### L [id number] #### [facility] ([facility]) [address] [place] [address] Protein [Mass/Vol] 6.3 g/dL Normal 6.0-8.3 [facility] Comment on above: Performed By: #### L [id number] #### [facility] ([facility]) [address] [place] [address] Sodium [Moles/Vol] 138 mmol/L Normal 136-145 [facility] Comment on above: Performed By: #### L [id number] #### [facility] ([facility]) [address] [place] [address] Urea nitrogen [Mass/Vol] 42 mg/dL High 7-25 [facility] Comment on above: Performed By: #### L [id number] #### [facility] ([facility]) [address] [place] [address] UREA NITROGEN/CREATININE (MASS RATIO) IN SER/PLAS 18.6 Normal [facility] Comment on above: Performed By: #### L [id number] #### [facility] ([facility]) [address] [place] [address] Albumin [Mass/Vol] 3.8 g/dL Normal 3.5-5.7 [facility] Comment on above: Performed By: #### L [id number] #### [facility] ([facility]) [address] [place] [address] ALP [Catalytic activity/Vol] 58 U/L Normal 34-104 [facility] Comment on above: Performed By: #### L [id number] #### [facility] ([facility]) [address] [place] [place] [address] ALT [Catalytic activity/Vol] 12 U/L Normal 7-52 [facility] Comment on above: Performed By: #### L [id number] #### [facility] ([facility]) [address] [place] [address] Anion gap [Moles/Vol] 10 mmol/L Normal 7-20 [facility] Comment on above: Performed By: #### L [id number] #### [facility] ([facility]) [address] [place] [address] AST [Catalytic activity/Vol] 15 U/L Normal 13-39 [facility] Comment on above: Performed By: #### L [id number] #### [facility] ([facility]) [address] [place] [address] Bilirubin [Mass/Vol] 0.4 mg/dL Normal 0.3-1.0 [facility] Comment on above: Performed By: #### L [id number] #### [facility] ([facility]) [address] [place] [address] Calcium [Mass/Vol] 8.7 mg/dL Normal 8.6-10.3 [facility] Comment on above: Performed By: #### L [id number] #### [facility] ([facility]) [address] [place] [address] Chloride [Moles/Vol] 110 mmol/L High 98-107 [facility] Comment on above: Performed By: #### L [id number] #### [facility] ([facility]) [address] [place] [address] CO2 [Moles/Vol] 24 mmol/L Normal 21-31 [facility] Comment on above: Performed By: #### L [id number] #### [facility] ([facility]) [address] [place] [address] Creatinine [Mass/Vol] 2.26 mg/dL High 0.70-1.30 [facility] Comment on above: Performed By: #### L [id number] #### [facility] ([facility]) [address] [place] [address] GLOMERULAR FILTRATION RATE ML/MIN/1.73 SQ M.PREDICTED 28.1 mL/min/1.73m*2 Low >60.0 [facility] Comment on above: Result Comment: [facility]???s estimated glomerular filtration rate (eGFR) will no [...] group of individuals. Performed By: #### L [id number] #### [facility] ([facility]) [address] [place] [address] Glucose [Mass/Vol] 110 mg/dL High 70-100 [facility] Comment on above: Performed By: #### L [id number] #### [facility] ([facility]) [address] [place] [address] Potassium [Moles/Vol] 4.3 mmol/L Normal 3.5-5.1 [facility] Comment on above: Performed By: #### L [id number] #### [facility] ([facility]) [address] [place] [address] Protein [Mass/Vol] 5.4 g/dL Low 6.0-8.3 [facility] Comment on above: Performed By: #### L [id number] #### [facility] ([facility]) [address] [facility] [place] [address] Sodium [Moles/Vol] 140 mmol/L Normal 136-145 [facility] Comment on above: Performed By: #### L [id number] #### [facility] ([facility]) [address] [place] [address] Urea nitrogen [Mass/Vol] 40 mg/dL High 7-25 [facility] Comment on above: Performed By: #### L [id number] #### [facility] ([facility]) [address] [place] [address] UREA NITROGEN/CREATININE (MASS RATIO) IN SER/PLAS 17.7 Normal [facility] Comment on above: Performed By: #### L [id number] #### [facility] ([facility]) [address] [place] [address] CONSULTon 03-17-2023 CONSULT -- Attestation signed by Jimbo Bautista MD at [...] placed on Saturday, however he had felt lightheadedness/dizzin ess and had an unwitnessed syncopal episode. On [...] a past medical history of Atrial flutter ([facility]), Cancer ([facility] Chronic systolic heart failure ([facility]), CKD (chronic kidney disease), stage III ([facility]), Hematuria, Hypertension, and LBBB (left bundle branch [...] ???C (97 (more content not included)... Normal [facility] HEMOGLOBIN A1Con 03-17-2023 Glucose [Mass/Vol] 100 mg/dL Normal [facility] Comment on above: Performed By: #### L [id number] #### [facility] ([facility]) [address] [place] [address] HbA1c (Bld) [Mass fraction] 5.1 % Normal 4.0-6.0 [facility] Comment on above: Performed By: #### L [id number] #### [facility] ([facility]) [address] [place] [address] LACTIC ACID WITH 4 HOUR REFL EXon 03-17-2023 LACTATE (MMOL/L) IN SER/PLAS 0.7 mmol/L Normal 0.5-2.2 [facility] Comment on above: Performed By: #### L [id number] #### [facility] ([facility]) [address] [place] [address] LIPID PANELon 03-17-2023 CHOL/HDL 3.1 mg/dL Normal [facility] Comment on above: Performed By: #### L [id number] #### [facility] ([facility]) [address] [place] [address] Cholesterol [Mass/Vol] 124 mg/dL Normal 120-200 [facility] Comment on above: Performed By: #### L [id number] #### [facility] ([facility]) [address] [place] [address] Magnesium [Mass/Vol] 138 mg/dL Normal 40-149 [facility] Comment on above: Result Comment: TRIG LYCERIDE REFERENCE RANGE: 20 YEARS AND OLDER CARDIOVASCULAR RISK LESS THAN 150 mg/dL LOW RISK 150 TO 199 mg/dL BORDERLINE RISK 200 mg/dL AND GREATER HIGH RISK Performed By: #### L [id number] #### [facility] ([facility]) [address] [place] [address] Magnesium [Mass/Vol] 56 mg/dL Normal 0-160 [facility] Comment on above: Performed By: #### L [id number] #### [facility] ([facility]) [address] [place] [address] Magnesium [Mass/Vol] 40 mg/dL Normal 23-92 [facility] Comment on above: Performed By: #### L [id number] #### [facility] ([facility]) [address] [place] [address] NON HDL CHOL. (LDL+VLDL) 84 Normal [facility] Comment on above: Performed By: #### L [id number] #### [facility] ([facility]) [address] [facility] [place] [address] TOTAL VLDL-C 28 mg/dL Normal 0-40 [facility] Comment on above: Performed By: #### L [id number] #### [facility] ([facility]) [address] [facility] [place] [address] MAGNESIUMon 03-17-2023 Magnesium [Mass/Vol] 1.7 mg/dL Low 1.9-2.7 [facility] Comment on above: Performed By: #### L [id number] #### [facility] ([facility]) [address] [place] [address] PHOSPHORUSon 03-17-2023 Magnesium [Mass/Vol] 3.7 mg/dL Normal 2.5-5.0 [facility] Comment on above: Performed By: #### L [id number] #### [facility] ([facility]) [address] [facility] [place] [address] PROTIME-INRon 03-17-2023 INR IN PPP BY COAGULATION ASSAY 1.07 Normal 0.90-1.10 [facility] Comment on above: Result Comment: ACCC P [...] RANGE. CHEST 1995;108:[id number]. Performed By: #### L [id number] #### [facility] ([facility]) [address] [place] [address] PROTHROMBIN TIME (PT) IN PPP BY COAGULATION ASSAY 13.9 Seconds Normal 12.3-14.8 [facility] Comment on above: Performed By: #### L [id number] #### [facility] ([facility]) [address] [place] [address] TROPONIN Ion 03-17-2023 Troponin I.cardiac [Mass/Vol] 0.06 ng/mL High 0.00-0.04 [facility] Comment on above: Performed By: #### L [id number] #### [facility] ([facility]) [address] [place] [address] Troponin I.cardiac [Mass/Vol] 0.06 ng/mL High 0.00-0.04 [facility] Comment on above: Performed By: #### L [id number] #### [facility] ([facility]) [address] [place] [address] Troponin I.cardiac [Mass/Vol] 0.05 ng/mL High 0.00-0.04 [facility] Comment on above: Performed By: #### L [id number] #### [facility] ([facility]) [address] [place] [address] TSH3 REFLEX TO FT4on 023 THYROTROPIN (MIU/L) IN SER/PLAS BY DETECTION LIMIT <= 0.05 MIU/L 2.52 mIU/L Normal 0.34-5.60 [facility] Comment on above: Performed By: #### L [id number] #### [facility] ([place]) [address] [place] [address] Office Visiton 03-15-2023 Follow-up visit [id number] Juan Jose Austin 1940 M Date Provider Department Center 03/15/2023 JONATHAN BERKOWITZ CARD [facility] Family History Problem Relation Age of Onset Heart failure Mother Family Status - Relation Status Age at Mother Level of Service:30362 SD OFFICE/OUTPATIENT ESTABLISHED MOD MDM 30-39 MIN Normal [facility] BNPon 03-10-2023 Natriuretic peptide B (Bld) [Mass/Vol] 1490.0 pg/mL Normal <=1,800.0 [facility] Comment on above: Performed By: #### C K, HSTROPN, CMP, BNP #### [facility] [address] [place] [address] Dr. Tan Oliveros CBC AUTO DIFFon 03-10-2023 BASO # 0.1 103/ul Normal 0.0-0.1 [facility] Comment on above: Performed By: #### C K, HSTROPN, CMP, BNP #### [facility] [address] [place] [address] Dr. Tan Oliveros Basophils/100 WBC (Bld) 0.9 % Normal 0.2-2.0 [facility] Comment on above: Performed By: #### C K, HSTROPN, CMP, BNP #### [facility] [address] [place] [address] Dr. Tan Oliveros EO # 0.1 103/ul Normal 0.0-0.7 [facility] Comment on above: Performed By: #### C K, HSTROPN, CMP, BNP #### [facility] [address] [place] [address] Dr. Tan Oliveros Eosinophils/100 WBC (Bld) 1.6 % Normal 0.9-7.0 [facility] Comment on above: Performed By: #### C K, HSTROPN, CMP, BNP #### [facility] [address] [place] [address] Dr. Tan Oliveros Erythrocyte distribution width (RBC) [Ratio] 14.7 % Normal 11.0-15.0 [facility] Comment on above: Performed By: #### C K, HSTROPN, CMP, BNP #### [facility] [address] [place] [address] Dr. Tan Oliveros Hematocrit (Bld) [Volume fraction] 38.9 % Critically low 42.0-54.0 [facility] Comment on above: Performed By: #### C K, HSTROPN, CMP, BNP #### [facility] [address] [place] [address] Dr. Tan Oliveors Hemoglobin (Bld) [Mass/Vol] 12.8 g/dL Critically low 14.0-18.0 [facility] Comment on above: Performed By: #### C K, HSTROPN, CMP, BNP #### [facility] [address] [place] [address] Dr. Tan Oliveros IG # 0.02 10e3/ul Normal 0.00-0.03 [facility] Comment on above: Performed By: #### C K, HSTROPN, CMP, BNP #### [facility] [address] [place] [address] Dr. Tan Oliveros IG % 0.3 % Normal 0.0-0.5 [facility] Comment on above: Performed By: #### C K, HSTROPN, CMP, BNP #### [facility] [address] [place] [address] Dr. Tan Oliveros LYMPH # 0.7 103/ul Critically low 1.2-3.8 [facility] Comment on above: Performed By: #### C K, HSTROPN, CMP, BNP #### [facility] [address] [place] [address] Dr. Tan Oliveros Lymphocytes/100 WBC (Bld) 10.4 % Critically low 20.5-60.0 [facility] Comment on above: Performed By: #### C K, HSTROPN, CMP, BNP #### [facility] [address] [place] [address] Dr. Tan Oliveros MANUAL DIFF REQ NO Normal [facility] Comment on above: Performed By: #### C K, HSTROPN, CMP, BNP #### [facility] [address] [place] [address] Dr. Tan Oliveros MCH (RBC) [Entitic mass] 27.2 pg Normal 25.9-34.0 [facility] Comment on above: Performed By: #### C K, HSTROPN, CMP, BNP #### [facility] [address] [place] [address] Dr. Tan Oliveros MCHC (RBC) [Mass/Vol] 32.9 g/dL Normal 29.9-35.2 [facility] Comment on above: Performed By: #### C K, HSTROPN, CMP, BNP #### [facility] [address] [place] [address] Dr. Tan Oliveros MCV (RBC) [Entitic vol] 82.8 fL Normal 80.0-94.0 [facility] Comment on above: Performed By: #### C K, HSTROPN, CMP, BNP #### [facility] [address] [place] [address] Dr. Tan Oliveros MONO # 0.4 103/ul Normal 0.3-0.8 [facility] Comment on above: Performed By: #### C K, HSTROPN, CMP, BNP #### [facility] [address] [place] [address] Dr. Tan Oliveros Monocytes/100 WBC (Bld) 5.8 % Normal 1.7-12.0 [facility] Comment on above: Performed By: #### C K, HSTROPN, CMP, BNP #### [facility] [address] [place] [address] Dr. Tan Oliveros NEUT # 5.2 103/ul Normal 1.4-6.5 [facility] Comment on above: Performed By: #### C K, HSTROPN, CMP, BNP #### [facility] [address] [place] [address] [address] Tan Oliveros Neutrophils/100 WBC (Bld) 81.0 % Critically high 43.0-75.0 [facility] Comment on above: Performed By: #### C K, HSTROPN, CMP, BNP #### [facility] [address] [place] [address] Dr. Tan Oliveros Platelet mean volume (Bld) [Entitic vol] 9.9 fL Normal 9.5-13.5 [facility] Comment on above: Performed By: #### C K, HSTROPN, CMP, BNP #### [facility] [address] [place] [address] Dr. Tan Oliveros PLT 198 103/ul Normal 150-450 [facility] Comment on above: Performed By: #### C K, HSTROPN, CMP, BNP #### [facility] [address] [place] [address] Dr. Tan Oliveros RBC 4.70 106/ul Normal 4.70-6.10 [facility] Comment on above: Performed By: #### C K, HSTROPN, CMP, BNP #### [facility] [address] [place] [address] Dr. Tan Oliveros WBC 6.4 103/ul Normal 4.0-11.0 [facility] Comment on above: Performed By: #### C K, HSTROPN, CMP, BNP #### [facility] [address] [place] [address] Dr. Tan Oliveros CPKon 03-10-2023 CK [Catalytic activity/Vol] 152 U/L Normal 39-308 [facility] Comment on above: Performed By: #### C K, HSTROPN, CMP, BNP #### [facility] [address] [place] [address] Dr. Tan Oliveros PROF 14(COMP METB)on 023 Albumin [Mass/Vol] 3.5 g/dL Normal 3.4-5.0 [facility] Comment on above: Performed By: #### C K, HSTROPN, CMP, BNP #### [facility] [address] [address] [address] Tan Oliveros Albumin/Globulin [Mass ratio] 1.2 {ratio} Normal [facility] Comment on above: Performed By: #### C K, HSTROPN, CMP, BNP #### [facility] [address] [address] [address] Tan Oliveros ALP [Catalytic activity/Vol] 69 U/L Normal 46-116 [facility] Comment on above: Performed By: #### C K, HSTROPN, CMP, BNP #### [facility] [address] [address] [address] Tan Oliveros ALT [Catalytic activity/Vol] 21 U/L Normal 16-63 [facility] Comment on above: Performed By: #### C K, HSTROPN, CMP, BNP #### [facility] [address] [place] [address] Dr. Tan Oliveros Anion gap [Moles/Vol] 14.6 mmol/L Normal [facility] Comment on above: Performed By: #### C K, HSTROPN, CMP, BNP #### [facility] [address] [place] [address] Dr. Tan Oliveros AST [Catalytic activity/Vol] 21 U/L Normal 15-37 [facility] Comment on above: Performed By: #### C K, HSTROPN, CMP, BNP #### [facility] [address] [address] [address] Tan Oliveros Bilirubin [Mass/Vol] 0.5 mg/dL Normal 0.2-1.0 [facility] Comment on above: Performed By: #### C K, HSTROPN, CMP, BNP #### [facility] [address] [address] [address] Tan Oliveros Calcium [Mass/Vol] 8.7 mg/dL Normal 8.5-10.1 [facility] Comment on above: Performed By: #### C K, HSTROPN, CMP, BNP #### [facility] [address] [place] [address] Dr. Tan Oliveros Chloride [Moles/Vol] 107 mmol/L Normal 98-107 [facility] Comment on above: Performed By: #### C K, HSTROPN, CMP, BNP #### [facility] [address] [address] [address] Tan Oliveros CO2 [Moles/Vol] 23.1 mmol/L Normal 21.0-32.0 [facility] Comment on above: Performed By: #### C K, HSTROPN, CMP, BNP #### [facility] [address] [address] [address] Tan Oliveros Creatinine [Mass/Vol] 2.31 mg/dL Critically high 0.70-1.30 [facility] Comment on above: Performed By: #### C K, HSTROPN, CMP, BNP #### [facility] [address] [address] [address] Tan Oliveros EGFR-AF MALAYSIAN 33 mL/min/1.73m2 Critically low >=60 [facility] Comment on above: Performed By: #### C K, HSTROPN, CMP, BNP #### [facility] [address] [place] [address] Dr. Tan Oliveros EGFR-NON AF MALAYSIAN 27 mL/min/1.73m2 Critically low >=60 [facility] Comment on above: Performed By: #### C K, HSTROPN, CMP, BNP #### [facility] [address] [address] [address] Tan Oliveros Globulin (S) [Mass/Vol] 2.8 g/dL Normal [facility] Comment on above: Performed By: #### C K, HSTROPN, CMP, BNP #### [facility] [address] [address] [address] Tan Oliveros Glucose [Mass/Vol] 123 mg/dL Critically high 74-106 T [facility] Comment on above: Performed By: #### C K, HSTROPN, CMP, BNP #### [facility] [address] [address] [address] Tan Oliveros Potassium [Moles/Vol] 4.7 mmol/L Normal 3.5-5.1 [facility] Comment on above: Performed By: #### C K, HSTROPN, CMP, BNP #### [facility] [address] [address] [address] Tan Oliveros Protein [Mass/Vol] 6.3 g/dL Critically low 6.4-8.2 [facility] e [facility] Comment on above: Performed By: #### C K, HSTROPN, CMP, BNP #### [facility] [address] [address] [address] Tan Oliveros Sodium [Moles/Vol] 140 mmol/L Normal 136-145 [facility] Comment on above: Performed By: #### C K, HSTROPN, CMP, BNP #### [facility] [address] [place] [address] Dr. Tan Oliveros Urea nitrogen [Mass/Vol] 39.0 mg/dL Critically high 7.0-18.0 [facility] Comment on above: Performed By: #### C K, HSTROPN, CMP, BNP #### [facility] [address] [address] [address] Tan Oliveros Urea nitrogen/Creatinine [Mass ratio] 16.9 mg/mg Normal [facility] Comment on above: Performed By: #### C K, HSTROPN, CMP, BNP #### [facility] [address] [place] [address] Dr. Tan Oliveros TROPONIN, HIGH SENSITIVITYon 03-10-2023 HSTROP 44.5 pg/mL Normal 4.0-76.1 [facility] Comment on above: Result Comment: CUT- OFF POINTS HAVE BEEN ESTABLISHED BASED ON THE FOURTH UNIVERSAL DEFINITIONS OF MYOCARDIAL INFARCTION. THE UPPER REFERENCE LIMIT (URL) OF TROPONIN, DEFINED THE 99TH PERCENTILE OF cTnI DISTRIBUTION IN A REFERENCE POPULATION, HAS BEEN CONFIRMED THE DECISION THRESHOLD FOR [place] DIAGNOSIS. Performed By: #### C K, HSTROPN, CMP, BNP #### [facility] [address] [address] [address] Tan Oliveros XR CHEST 2 Von [...] by: MIKE MARTÍNEZ Date: 2023-03-10 11:51 Normal [facility] CNOVSPon 03-07-2023 CNOVSP Normal [facility] CNPNon 03-07-2023 CNPN Normal [facility] Comprehensive metabolic 2000 panelon 03-07-2023 Albumin [Mass/Vol] 4.4 g/dL Normal 3.9-4.9 [facility] Comment on above: Order Comment: Speci men Type: BLOOD SPECIMENOrdering Facility: [facility] Address: [address] [place] [address] Performed By: #### 2 4323-8 ####[facility] LABCLIA [id number] [place] [address] ALP [Catalytic activity/Vol] 76 U/L Normal 38-113 [facility] Comment on above: Order Comment: Speci men Type: BLOOD SPECIMENOrdering Facility: [facility] Address: [address] [place] [address] Performed By: #### 2 4323-8 ####[facility] LABCLIA [id number] [place] [address] ALT [Catalytic activity/Vol] 14 U/L Normal 10-54 [facility] Comment on above: Order Comment: Speci men Type: BLOOD SPECIMENOrdering Facility: [facility] Address: [address] [place] [address] Performed By: #### 2 4323-8 ####[facility] LABCLIA [id number] [place] [address] Anion gap [Moles/Vol] 10 mmol/L Normal 9-18 [facility] Comment on above: Order Comment: Speci men Type: BLOOD SPECIMENOrdering Facility: [facility] Address: [facility] [address] [address] Performed By: #### 2 4323-8 ####[facility] LABCLIA [id number] [place] [address] AST [Catalytic activity/Vol] 21 U/L Normal 14-40 [facility] Comment on above: Order Comment: Speci men Type: BLOOD SPECIMENOrdering Facility: [facility] Address: [address] [place] [address] Performed By: #### 2 4323-8 ####[facility] LABCLIA [id number] [place] [address] Bilirubin [Mass/Vol] 0.5 mg/dL Normal 0.2-1.3 [facility] Comment on above: Order Comment: Speci men Type: BLOOD SPECIMENOrdering Facility: [facility] Address: [address] [place] [address] Performed By: #### 2 4323-8 ####[facility] LABCLIA [id number] [place] [address] Calcium [Mass/Vol] 9.6 mg/dL Normal 8.5-10.2 [facility] Comment on above: Order Comment: Speci men Type: BLOOD SPECIMENOrdering Facility: [facility] Address: [address] [place] [address] Performed By: #### 2 4323-8 ####[facility] LABCLIA [id number] [place] [address] Chloride [Moles/Vol] 107 mmol/L High 97-105 [facility] Comment on above: Order Comment: Speci men Type: BLOOD SPECIMENOrdering Facility: [facility] Address: [address] [place] [address] Performed By: #### 2 4323-8 ####[facility] LABCLIA [id number] [place] [address] CO2 [Moles/Vol] 24 mmol/L Normal 22-30 [facility] Comment on above: Order Comment: Speci men Type: BLOOD SPECIMENOrdering Facility: [facility] Address: [address] [place] [address] Performed By: #### 2 4323-8 ####[facility] LABCLIA [id number] [place] [address] Creatinine [Mass/Vol] 2.28 mg/dL High 0.73-1.22 [facility] Comment on above: Order Comment: Speci men Type: BLOOD SPECIMENOrdering Facility: [facility] Address: [address] [place] [address] Performed By: #### 2 4323-8 ####[facility] LABCLIA [id number] [place] [address] ESTIMATED GLOMERULAR FILTRATION RATE 28 mL/min/1.73m??? Low >=60 [facility] Comment on above: Order Comment: Speci men Type: BLOOD SPECIMENOrdering Facility: [facility] Address: [address] [place] [address] Result Comment: Viviana mated Glomerular Filtration Rate [...] actual GFR. Performed By: #### 2 4323-8 ####[facility] LABCLIA [id number] [place] [address] Glucose [Mass/Vol] 118 mg/dL High 74-99 [facility] Comment on above: Order Comment: Farrahi oralia Type: BLOOD SPECIMENOrdering Facility: [facility] Address: [address] [place] [address] Result Comment: The [place] [employer] (ADA) provides guidance for cutoff [...] Standards of Medical Care in Diabetes 2016, [place] [employer]. Diabetes Care. 2016.39(Suppl 1). Performed By: #### 2 4323-8 ####[facility] LABCLIA [id number] [place] [address] Potassium [Moles/Vol] 4.2 mmol/L Normal 3.7-5.1 [facility] Comment on above: Order Comment: Speci men Type: BLOOD SPECIMENOrdering Facility: [facility] Address: [address] [place] [address] Performed By: #### 2 4323-8 ####[facility] LABCLIA [id number] [place] [address] Protein [Mass/Vol] 6.2 g/dL Low 6.3-8.0 [facility] Comment on above: Order Comment: Speci men Type: BLOOD SPECIMENOrdering Facility: [facility] Address: [address] [place] [address] Performed By: #### 2 4323-8 ####[facility] LABCLIA [id number] [place] [address] Sodium [Moles/Vol] 141 mmol/L Normal 136-144 [facility] Comment on above: Order Comment: Speci men Type: BLOOD SPECIMENOrdering Facility: [facility] Address: [address] [place] [address] Performed By: #### 2 4323-8 ####[facility] LABCLIA [id number] [place] [address] Urea nitrogen [Mass/Vol] 42 mg/dL High 9-24 [facility] Comment on above: Order Comment: Speci men Type: BLOOD SPECIMENOrdering Facility: [facility] Address: [address] [place] [address] Performed By: #### 2 4323-8 ####[facility] LABCLIA [id number] [place] [address] CBC W Auto Differential pane l (Bld)on 02-21-2023 Basophils (Bld) [#/Vol] 0.05 10*3/uL Normal <0.11 [facility] Comment on above: Order Comment: Speci men Type: BLOOD SPECIMENOrdering Facility: [facility] Address: [address] [place] [address] Performed By: #### 5 7021-8 ####[facility] LABCLIA [id number] [place] [address] Basophils/100 WBC (Bld) 0.8 % Normal [facility] Comment on above: Order Comment: Speci men Type: BLOOD SPECIMENOrdering Facility: [facility] Address: [address] [place] [address] Performed By: #### 5 7021-8 ####[facility] LABCLIA [id number] [place] [address] Differential cell count method Nom (Bld) Auto Normal [facility] Comment on above: Order Comment: Speci men Type: BLOOD SPECIMENOrdering Facility: [facility] Address: [address] [place] [address] Performed By: #### 5 7021-8 ####[facility] LABCLIA [id number] [place] [address] Eosinophils (Bld) [#/Vol] 0.24 10*3/uL Normal <0.46 [facility] Comment on above: Order Comment: Speci men Type: BLOOD SPECIMENOrdering Facility: [facility] Address: [address] [place] [address] Performed By: #### 5 7021-8 ####[facility] LABCLIA [id number] [place] [address] Eosinophils/100 WBC (Bld) 3.9 % Normal [facility] Comment on above: Order Comment: Speci men Type: BLOOD SPECIMENOrdering Facility: [facility] Address: [address] [place] [address] Performed By: #### 5 7021-8 ####[facility] LABIA [id number] [place] [address] Erythrocyte distribution width (RBC) [Ratio] 14.6 % Normal 11.5-15.0 [facility] Comment on above: Order Comment: Speci men Type: BLOOD SPECIMENOrdering Facility: [facility] Address: [address] [place] [address] Performed By: #### 5 7021-8 ####[facility] LABIA [id number] [place] [address] Hematocrit (Bld) [Volume fraction] 39.4 % Normal 39.0-51.0 [facility] Comment on above: Order Comment: Speci men Type: BLOOD SPECIMENOrdering Facility: [facility] Address: [address] [place] [address] Performed By: #### 5 7021-8 ####[facility] LABCLIA [id number] [place] [address] Hemoglobin (Bld) [Mass/Vol] 12.7 g/dL Low 13.0-17.0 [facility] Comment on above: Order Comment: Speci men Type: BLOOD SPECIMENOrdering Facility: [facility] Address: [address] [place] [address] Performed By: #### 5 7021-8 ####[facility] LABIA [id number] [place] [address] Immature granulocytes (Bld) [#/Vol] 0.03 10*3/uL Normal <0.10 [facility] Comment on above: Order Comment: Speci men Type: BLOOD SPECIMENOrdering Facility: [facility] Address: [address] [place] [address] Performed By: #### 5 7021-8 ####[facility] LABIA [id number] [place] [address] Immature granulocytes/100 WBC (Bld) 0.5 % Normal [facility] Comment on above: Order Comment: Speci men Type: BLOOD SPECIMENOrdering Facility: [facility] Address: [address] [place] [address] Performed By: #### 5 7021-8 ####[facility] LABIA [id number] [place] [address] Lymphocytes (Bld) [#/Vol] 0.81 10*3/uL Low 1.00-4.00 [facility] Comment on above: Order Comment: Speci men Type: BLOOD SPECIMENOrdering Facility: [facility] Address: [address] [place] [address] Performed By: #### 5 7021-8 ####[facility] LABIA [id number] [place] [address] Lymphocytes/100 WBC (Bld) 13.2 % Normal [facility] Comment on above: Order Comment: Speci men Type: BLOOD SPECIMENOrdering Facility: [facility] Address: [address] [place] [address] Performed By: #### 5 7021-8 ####[facility] LABIA [id number] [place] [address] MCH (RBC) [Entitic mass] 27.0 pg Normal 26.0-34.0 [facility] Comment on above: Order Comment: Speci men Type: BLOOD SPECIMENOrdering Facility: [facility] Address: [address] [place] [address] Performed By: #### 5 7021-8 ####[facility] LABIA [id number] [place] [address] MCHC (RBC) [Mass/Vol] 32.2 g/dL Normal 30.5-36.0 [facility] Comment on above: Order Comment: Speci men Type: BLOOD SPECIMENOrdering Facility: [facility] Address: [address] [place] [address] Performed By: #### 5 7021-8 ####[facility] LABCLIA [id number] [place] [address] MCV (RBC) [Entitic vol] 83.8 fL Normal 80.0-100.0 [facility] Comment on above: Order Comment: Speci men Type: BLOOD SPECIMENOrdering Facility: [facility] Address: [address] [place] [address] Performed By: #### 5 7021-8 ####[facility] LABCLIA [id number] [place] [address] Monocytes (Bld) [#/Vol] 0.47 10*3/uL Normal <0.87 [facility] Comment on above: Order Comment: Speci men Type: BLOOD SPECIMENOrdering Facility: [facility] Address: [address] [place] [address] Performed By: #### 5 7021-8 ####[facility] LABCLIA [id number] [place] [address] Monocytes/100 WBC (Bld) 7.7 % Normal [facility] Comment on above: Order Comment: Speci men Type: BLOOD SPECIMENOrdering Facility: [facility] Address: [address] [place] [address] Performed By: #### 5 7021-8 ####[facility] LABCLIA [id number] [place] [address] Neutrophils (Bld) [#/Vol] 4.54 10*3/uL Normal 1.45-7.50 [facility] Comment on above: Order Comment: Speci men Type: BLOOD SPECIMENOrdering Facility: [facility] Address: [address] [address] Performed By: #### 5 7021-8 ####[facility] LABCLIA [id number] [place] [address] Neutrophils/100 WBC (Bld) 73.9 % Normal [facility] Comment on above: Order Comment: Speci men Type: BLOOD SPECIMENOrdering Facility: [facility] Address: [address] [place] [address] Performed By: #### 5 7021-8 ####[facility] LABCLIA [id number] [place] [address] Nucleated RBC (Bld) [#/Vol] 10*3/uL Normal <0.01 [facility] Comment on above: Order Comment: Speci men Type: BLOOD SPECIMENOrdering Facility: [facility] Address: [address] [place] [address] Performed By: #### 5 7021-8 ####[facility] LABCLIA [id number] [place] [address] Nucleated RBC/100 WBC (Bld) [Ratio] 0.0 /100 WBC Normal [facility] Comment on above: Order Comment: Speci men Type: BLOOD SPECIMENOrdering Facility: [facility] Address: [address] [place] [address] Performed By: #### 5 7021-8 ####[facility] LABCLIA [id number] [place] [address] Platelet mean volume (Bld) [Entitic vol] 9.3 fL Normal 9.0-12.7 [facility] Comment on above: Order Comment: Speci men Type: BLOOD SPECIMENOrdering Facility: [facility] Address: [address] [place] [address] Performed By: #### 5 7021-8 ####[facility] LABCLIA [id number] [place] [address] Platelets (Bld) [#/Vol] 208 10*3/uL Normal 150-400 [facility] Comment on above: Order Comment: Speci men Type: BLOOD SPECIMENOrdering Facility: [facility] Address: [address] [place] [address] Performed By: #### 5 7021-8 ####[facility] LABCLIA [id number] [place] [address] RBC (Bld) [#/Vol] 4.70 10*6/uL Normal 4.20-6.00 [facility] Comment on above: Order Comment: Speci men Type: BLOOD SPECIMENOrdering Facility: [facility] Address: [address] [place] [address] Performed By: #### 5 7021-8 ####[facility] LABIA [id number] [place] [address] WBC (Bld) [#/Vol] 6.14 10*3/uL Normal 3.70-11.00 [facility] Comment on above: Order Comment: Speci men Type: BLOOD SPECIMENOrdering Facility: [facility] Address: [address] [place] [address] Performed By: #### 5 7021-8 ####[facility] LABIA [id number] [place] [address] CNOVSPon 02-21-2023 CNOVSP Normal [facility] CNPNon 02-21-2023 CNPN Normal [facility] Comprehensive metabolic 2000 panelon 02-21-2023 Albumin [Mass/Vol] 4.4 g/dL Normal 3.9-4.9 [facility] Comment on above: Order Comment: Speci men Type: BLOOD SPECIMENOrdering Facility: [facility] Address: [address] [place] [address] Performed By: #### 2 4323-8 ####[facility] LABCLIA [id number] [place] [address] ALP [Catalytic activity/Vol] 79 U/L Normal 38-113 [facility] Comment on above: Order Comment: Speci men Type: BLOOD SPECIMENOrdering Facility: [facility] Address: [address] [address] Performed By: #### 2 4323-8 ####[facility] LABCLIA [id number] [place] [address] ALT [Catalytic activity/Vol] 14 U/L Normal 10-54 [facility] Comment on above: Order Comment: Speci men Type: BLOOD SPECIMENOrdering Facility: [facility] Address: [address] [address] Performed By: #### 2 4323-8 ####[facility] LABCLIA [id number] [place] [address] Anion gap [Moles/Vol] 12 mmol/L Normal 9-18 [facility] Comment on above: Order Comment: Speci men Type: BLOOD SPECIMENOrdering Facility: [facility] Address: [address] [place] [address] Performed By: #### 2 4323-8 ####[facility] LABCLIA [id number] [place] [address] AST [Catalytic activity/Vol] 24 U/L Normal 14-40 [facility] Comment on above: Order Comment: Speci men Type: BLOOD SPECIMENOrdering Facility: [facility] Address: [address] [place] [address] Performed By: #### 2 4323-8 ####[facility] LABCLIA [id number] [place] [address] Bilirubin [Mass/Vol] 0.5 mg/dL Normal 0.2-1.3 [facility] Comment on above: Order Comment: Speci men Type: BLOOD SPECIMENOrdering Facility: [facility] Address: [address] [place] [address] Performed By: #### 2 4323-8 ####[facility] LABCLIA [id number] [place] [address] Calcium [Mass/Vol] 9.2 mg/dL Normal 8.5-10.2 [facility] Comment on above: Order Comment: Speci men Type: BLOOD SPECIMENOrdering Facility: [facility] Address: [address] [place] [address] Performed By: #### 2 4323-8 ####[facility] LABCLIA [id number] [place] [address] Chloride [Moles/Vol] 105 mmol/L Normal 97-105 [facility] Comment on above: Order Comment: Speci men Type: BLOOD SPECIMENOrdering Facility: [facility] Address: [address] [place] [address] Performed By: #### 2 4323-8 ####[facility] LABCLIA [id number] [place] [address] CO2 [Moles/Vol] 25 mmol/L Normal 22-30 [facility] Comment on above: Order Comment: Speci men Type: BLOOD SPECIMENOrdering Facility: [facility] Address: [address] [place] [address] Performed By: #### 2 4323-8 ####[facility] LABCLIA [id number] [place] [address] Creatinine [Mass/Vol] 2.23 mg/dL High 0.73-1.22 [facility] Comment on above: Order Comment: Speci men Type: BLOOD SPECIMENOrdering Facility: [facility] Address: [address] [place] [address] Performed By: #### 2 4323-8 ####[facility] LABCLIA [id number] [place] [address] ESTIMATED GLOMERULAR FILTRATION RATE 29 mL/min/1.73m??? Low >=60 [facility] Comment on above: Order Comment: Speci men Type: BLOOD SPECIMENOrdering Facility: [facility] Address: [address] [place] [address] Result Comment: Viviana mated Glomerular Filtration Rate [...] actual GFR. Performed By: #### 2 4323-8 ####[facility] LABCLIA [id number] [place] [address] Glucose [Mass/Vol] 117 mg/dL High 74-99 [facility] Comment on above: Order Comment: Specronnie men Type: BLOOD SPECIMENOrdering Facility: [facility] Address: [address] [place] [address] Result Comment: The [place] [employer] (ADA) provides guidance for cutoff [...] Standards of Medical Care in Diabetes 2016, [place] [employer]. Diabetes Care. 2016.39(Suppl 1). Performed By: #### 2 4323-8 ####[facility] LABCLIA [id number] [place] [address] Potassium [Moles/Vol] 4.9 mmol/L Normal 3.7-5.1 [facility] Comment on above: Order Comment: Vero barton Type: BLOOD SPECIMENOrdering Facility: [facility] Address: [address] [place] [address] Performed By: #### 2 4323-8 ####[facility] LABCLIA [id number] [place] [address] Protein [Mass/Vol] 6.4 g/dL Normal 6.3-8.0 [facility] Comment on above: Order Comment: Speci men Type: BLOOD SPECIMENOrdering Facility: [facility] Address: [address] [address] Performed By: #### 2 4323-8 ####[facility] LABCLIA [id number] [place] [address] Sodium [Moles/Vol] 142 mmol/L Normal 136-144 [facility] Comment on above: Order Comment: Speci men Type: BLOOD SPECIMENOrdering Facility: [facility] Address: [address] [address] Performed By: #### 2 4323-8 ####[facility] LABCLIA [id number] [place] [address] Urea nitrogen [Mass/Vol] 36 mg/dL High 9-24 [facility] Comment on above: Order Comment: Speci men Type: BLOOD SPECIMENOrdering Facility: [facility] Address: [address] [address] Performed By: #### 2 4323-8 ####[facility] LABCLIA [id number] [place] [address] Beverly Zakia 02-22-20 23 Cortisol [Mass/Vol] 11.2 ug/dL Normal 4.8-19.5 [facility] Comment on above: Order Comment: Speci men Type: BLOOD SPECIMENOrdering Facility: [facility] Address: [address] [address] Result Comment: Prov ided reference range is from 6-10 AM sample collection time.Cortisol Reference Range: 6-10 AM = 4.8-19.5 ug/dL, 4-8 PM = 2.5-11.9 ug/dL Performed By: #### 2 143-6, 3016-3 ####[facility] LABCLIA [id number] [facility] [address] [place] HbA1c (Bld)on 02-21-2023 Average glucose Estimated from glycated hemoglobin (Bld) [Mass/Vol] 103 mg/dL Normal [facility] Comment on above: Order Comment: Vero barton Type: BLOOD SPECIMENOrdering Facility: [facility] Address: [address] [address] Result Comment: eAG: (Estimated average glucose) is a calculated value from HgbA1c and is operations support representative of the average blood glucose level in the last 2-3 month period. Performed By: #### 5 5454-3 ####[facility] LABCLIA [id number] [address] HbA1c (Bld) [Mass fraction] 5.2 % Normal 4.3-5.6 [facility] Comment on above: Order Comment: Vero barton Type: BLOOD SPECIMENOrdering Facility: [facility] Address: [address] [place] [address] Result Comment: Amer ican Diabetes Association guidelines indicate that patients with HgbA1c in the range 5.7-6.4% are at increased risk for development of diabetes, and intervention by lifestyle modification may be beneficial. HgbA1c greater or equal to 6.5% is considered diagnostic of diabetes. Performed By: #### 5 5454-3 ####[facility] LABCLIA [id number] [place] [address] [place] TSH SerPl-aCncon 02-21-2023 TSH Qn 3.220 m[IU]/L Normal 0.270-4.200 [facility] Comment on above: Order Comment: Vero barton Type: BLOOD SPECIMENOrdering Facility: [facility] Address: [address] [place] [address] Performed By: #### 2 143-6, 3016-3 ####[facility] LABIA [id number] [address] [place] CNOVSPon 01-31-2023 CNOVSP Normal [facility] CNPNon 01-31-2023 CNPN Normal [facility] Consultation Noteon 02-01-20 23 Consultation Note [id number]#[id number]:[id number] Normal [facility] CBC W Auto Differential pane l (Bld)on 01-23-2023 Basophils (Bld) [#/Vol] 0.06 10*3/uL Normal <0.11 [facility] Comment on above: Order Comment: Speci men Type: BLOOD SPECIMENOrdering Facility: [facility] Address: [address] [place] [address] Performed By: #### 5 7021-8 ####[facility] LABCLIA [id number] [place] [address] Basophils/100 WBC (Bld) 1.0 % Normal [facility] Comment on above: Order Comment: Speci men Type: BLOOD SPECIMENOrdering Facility: [facility] Address: [address] [place] [address] Performed By: #### 5 7021-8 ####[facility] LABCLIA [id number] [place] [address] Differential cell count method Nom (Bld) Auto Normal [facility] Comment on above: Order Comment: Speci men Type: BLOOD SPECIMENOrdering Facility: [facility] Address: [address] [place] [address] Performed By: #### 5 7021-8 ####[facility] LABCLIA [id number] [place] [address] Eosinophils (Bld) [#/Vol] 0.23 10*3/uL Normal <0.46 [facility] Comment on above: Order Comment: Speci men Type: BLOOD SPECIMENOrdering Facility: [facility] Address: [address] [place] [address] Performed By: #### 5 7021-8 ####[facility] LABCLIA [id number] [place] [address] Eosinophils/100 WBC (Bld) 3.7 % Normal [facility] Comment on above: Order Comment: Speci men Type: BLOOD SPECIMENOrdering Facility: [facility] Address: [address] [place] [address] Performed By: #### 5 7021-8 ####[facility] LABCLIA [id number] [place] [address] Erythrocyte distribution width (RBC) [Ratio] 15.1 % High 11.5-15.0 [facility] Comment on above: Order Comment: Speci men Type: BLOOD SPECIMENOrdering Facility: [facility] Address: [address] [place] [address] Performed By: #### 5 7021-8 ####[facility] LABCLIA [id number] [place] [address] Hematocrit (Bld) [Volume fraction] 37.6 % Low 39.0-51.0 [facility] Comment on above: Order Comment: Speci men Type: BLOOD SPECIMENOrdering Facility: [facility] Address: [address] [place] [address] Performed By: #### 5 7021-8 ####[facility] LABCLIA [id number] [place] [address] Hemoglobin (Bld) [Mass/Vol] 12.4 g/dL Low 13.0-17.0 [facility] Comment on above: Order Comment: Speci men Type: BLOOD SPECIMENOrdering Facility: [facility] Address: [address] [place] [address] Performed By: #### 5 7021-8 ####[facility] LABCLIA [id number] [place] [address] Immature granulocytes (Bld) [#/Vol] 10*3/uL Normal <0.10 [facility] Comment on above: Order Comment: Speci men Type: BLOOD SPECIMENOrdering Facility: [facility] Address: [address] [place] [address] Performed By: #### 5 7021-8 ####[facility] LABCLIA [id number] [place] [address] Immature granulocytes/100 WBC (Bld) 0.3 % Normal [facility] Comment on above: Order Comment: Speci men Type: BLOOD SPECIMENOrdering Facility: [facility] Address: [address] [place] [address] Performed By: #### 5 7021-8 ####[facility] LABCLIA [id number] [place] [address] Lymphocytes (Bld) [#/Vol] 0.91 10*3/uL Low 1.00-4.00 [facility] Comment on above: Order Comment: Speci men Type: BLOOD SPECIMENOrdering Facility: [facility] Address: [address] [place] [address] Performed By: #### 5 7021-8 ####[facility] LABCLIA [id number] [place] [address] Lymphocytes/100 WBC (Bld) 14.8 % Normal [facility] Comment on above: Order Comment: Speci men Type: BLOOD SPECIMENOrdering Facility: [facility] Address: [address] [place] [address] Performed By: #### 5 7021-8 ####[facility] LABCLIA [id number] [place] [address] MCH (RBC) [Entitic mass] 27.1 pg Normal 26.0-34.0 [facility] Comment on above: Order Comment: Speci men Type: BLOOD SPECIMENOrdering Facility: [facility] Address: [address] [place] [address] Performed By: #### 5 7021-8 ####[facility] LABCLIA [id number] [place] [address] MCHC (RBC) [Mass/Vol] 33.0 g/dL Normal 30.5-36.0 [facility] Comment on above: Order Comment: Speci men Type: BLOOD SPECIMENOrdering Facility: [facility] Address: [address] [address] Performed By: #### 5 7021-8 ####[facility] LABCLIA [id number] [place] [address] MCV (RBC) [Entitic vol] 82.1 fL Normal 80.0-100.0 [facility] Comment on above: Order Comment: Speci men Type: BLOOD SPECIMENOrdering Facility: [facility] Address: [address] [place] [address] Performed By: #### 5 7021-8 ####[facility] LABCLIA [id number] [place] [address] Monocytes (Bld) [#/Vol] 0.45 10*3/uL Normal <0.87 [facility] Comment on above: Order Comment: Speci men Type: BLOOD SPECIMENOrdering Facility: [facility] Address: [address] [address] Performed By: #### 5 7021-8 ####[facility] LABCLIA [id number] [place] [address] Monocytes/100 WBC (Bld) 7.3 % Normal [facility] Comment on above: Order Comment: Speci men Type: BLOOD SPECIMENOrdering Facility: [facility] Address: [address] [place] [address] Performed By: #### 5 7021-8 ####[facility] LABCLIA [id number] [place] [address] Neutrophils (Bld) [#/Vol] 4.47 10*3/uL Normal 1.45-7.50 [facility] Comment on above: Order Comment: Speci men Type: BLOOD SPECIMENOrdering Facility: [facility] Address: [address] [place] [address] Performed By: #### 5 7021-8 ####[facility] LABCLIA [id number] [place] [address] Neutrophils/100 WBC (Bld) 72.9 % Normal [facility] Comment on above: Order Comment: Speci men Type: BLOOD SPECIMENOrdering Facility: [facility] Address: [address] [place] [address] Performed By: #### 5 7021-8 ####[facility] LABCLIA [id number] [place] [address] Nucleated RBC (Bld) [#/Vol] 10*3/uL Normal <0.01 [facility] Comment on above: Order Comment: Speci men Type: BLOOD SPECIMENOrdering Facility: [facility] Address: [address] [place] [address] Performed By: #### 5 7021-8 ####[facility] LABCLIA [id number] [place] [address] Nucleated RBC/100 WBC (Bld) [Ratio] 0.0 /100 WBC Normal [facility] Comment on above: Order Comment: Speci men Type: BLOOD SPECIMENOrdering Facility: [facility] Address: [address] [place] [address] Performed By: #### 5 7021-8 ####[facility] LABCLIA [id number] [place] [address] Platelet mean volume (Bld) [Entitic vol] 8.8 fL Low 9.0-12.7 [facility] Comment on above: Order Comment: Speci men Type: BLOOD SPECIMENOrdering Facility: [facility] Address: [address] [place] [address] Performed By: #### 5 7021-8 ####[facility] LABCLIA [id number] [place] [address] Platelets (Bld) [#/Vol] 202 10*3/uL Normal 150-400 [facility] Comment on above: Order Comment: Speci men Type: BLOOD SPECIMENOrdering Facility: [facility] Address: [address] [address] Performed By: #### 5 7021-8 ####[facility] LABIA [id number] [place] [address] RBC (Bld) [#/Vol] 4.58 10*6/uL Normal 4.20-6.00 [facility] Comment on above: Order Comment: Speci men Type: BLOOD SPECIMENOrdering Facility: [facility] Address: [address] [address] Performed By: #### 5 7021-8 ####[facility] LABIA [id number] [place] [address] WBC (Bld) [#/Vol] 6.14 10*3/uL Normal 3.70-11.00 [facility] Comment on above: Order Comment: Speci men Type: BLOOD SPECIMENOrdering Facility: [facility] Address: [address] [place] [address] Performed By: #### 5 7021-8 ####[facility] LABIA [id number] [place] [address] CNOVSPon 01-23-2023 CNOVSP Normal [facility] CT CHEST WO IVCONon 01-24-20 CT CHEST WO IVCON Normal [facility] Comprehensive metabolic 2000 panelon 01-23-2023 Albumin [Mass/Vol] 4.4 g/dL Normal 3.9-4.9 [facility] Comment on above: Order Comment: Speci men Type: BLOOD SPECIMENOrdering Facility: [facility] Address: [address] [place] [address] Performed By: #### 2 4323-8 ####[facility] LABIA [id number] [place] [address] ALP [Catalytic activity/Vol] 76 U/L Normal 38-113 [facility] Comment on above: Order Comment: Speci men Type: BLOOD SPECIMENOrdering Facility: [facility] Address: [address] [address] Performed By: #### 2 4323-8 ####[facility] LABCLIA [id number] [place] [address] ALT [Catalytic activity/Vol] 16 U/L Normal 10-54 [facility] Comment on above: Order Comment: Speci men Type: BLOOD SPECIMENOrdering Facility: [facility] Address: [address] [address] Performed By: #### 2 4323-8 ####[facility] LABCLIA [id number] [place] [address] Anion gap [Moles/Vol] 7 mmol/L Low 9-18 [facility] Comment on above: Order Comment: Speci men Type: BLOOD SPECIMENOrdering Facility: [facility] Address: [address] [address] Performed By: #### 2 4323-8 ####[facility] LABCLIA [id number] [place] [address] AST [Catalytic activity/Vol] 22 U/L Normal 14-40 [facility] Comment on above: Order Comment: Speci men Type: BLOOD SPECIMENOrdering Facility: [facility] Address: [address] [address] Performed By: #### 2 4323-8 ####[facility] LABCLIA [id number] [place] [address] Bilirubin [Mass/Vol] 0.4 mg/dL Normal 0.2-1.3 [facility] Comment on above: Order Comment: Speci men Type: BLOOD SPECIMENOrdering Facility: [facility] Address: [address] [place] [address] Performed By: #### 2 4323-8 ####[facility] LABCLIA [id number] [place] [address] Calcium [Mass/Vol] 9.0 mg/dL Normal 8.5-10.2 [facility] Comment on above: Order Comment: Speci men Type: BLOOD SPECIMENOrdering Facility: [facility] Address: [address] [place] [address] Performed By: #### 2 4323-8 ####[facility] LABCLIA [id number] [place] [address] Chloride [Moles/Vol] 106 mmol/L High 97-105 [facility] Comment on above: Order Comment: Speci men Type: BLOOD SPECIMENOrdering Facility: [facility] Address: [address] [place] [address] Performed By: #### 2 4323-8 ####[facility] LABCLIA [id number] [place] [address] CO2 [Moles/Vol] 25 mmol/L Normal 22-30 [facility] Comment on above: Order Comment: Speci men Type: BLOOD SPECIMENOrdering Facility: [facility] Address: [address] [place] [address] Performed By: #### 2 4323-8 ####[facility] LABCLIA [id number] [place] [address] Creatinine [Mass/Vol] 2.30 mg/dL High 0.73-1.22 [facility] Comment on above: Order Comment: Speci men Type: BLOOD SPECIMENOrdering Facility: [facility] Address: [address] [place] [address] Performed By: #### 2 4323-8 ####[facility] LABCLIA [id number] [place] [address] ESTIMATED GLOMERULAR FILTRATION RATE 27 mL/min/1.73m??? Low >=60 [facility] Comment on above: Order Comment: Speci men Type: BLOOD SPECIMENOrdering Facility: [facility] Address: [address] [place] [address] Result Comment: Viviana mated Glomerular Filtration Rate [...] actual GFR. Performed By: #### 2 4323-8 ####[facility] LABCLIA [id number] [place] [address] Glucose [Mass/Vol] 100 mg/dL High 74-99 [facility] Comment on above: Order Comment: Speci oralia Type: BLOOD SPECIMENOrdering Facility: [facility] Address: [place] [address] Result Comment: The [place] Diabetes Association (ADA) provides guidance for cutoff [...] Standards of Medical Care in Diabetes 2016, [place] Diabetes Association. Diabetes Care. 2016.39(Suppl 1). Performed By: #### 2 4323-8 ####[facility] LABCLIA [id number] [place] [address] Potassium [Moles/Vol] 4.2 mmol/L Normal 3.7-5.1 [facility] Comment on above: Order Comment: Specronnie barton Type: BLOOD SPECIMENOrdering Facility: [facility] Address: [place] [address] Performed By: #### 2 4323-8 ####[facility] LABCLIA [id number] [place] [address] Protein [Mass/Vol] 6.5 g/dL Normal 6.3-8.0 [facility] Comment on above: Order Comment: Speci men Type: BLOOD SPECIMENOrdering Facility: [facility] Address: [address] [address] Performed By: #### 2 4323-8 ####[facility] LABCLIA [id number] [place] [address] Sodium [Moles/Vol] 138 mmol/L Normal 136-144 [facility] Comment on above: Order Comment: Speci men Type: BLOOD SPECIMENOrdering Facility: [facility] Address: [address] [address] Performed By: #### 2 4323-8 ####[facility] LABCLIA [id number] [place] [address] Urea nitrogen [Mass/Vol] 36 mg/dL High 9-24 [facility] Comment on above: Order Comment: Speci men Type: BLOOD SPECIMENOrdering Facility: [facility] Address: [address] [address] Performed By: #### 2 4323-8 ####[facility] LABCLIA [id number] [place] [address] Beverly Koehler 01-24-20 23 Cortisol [Mass/Vol] 6.8 ug/dL Normal 4.8-19.5 [facility] Comment on above: Order Comment: Speci men Type: BLOOD SPECIMENOrdering Facility: [facility] Address: [address] [address] Result Comment: Prov ided reference range is from 6-10 AM sample collection time.Cortisol Reference Range: 6-10 AM = 4.8-19.5 ug/dL, 4-8 PM = 2.5-11.9 ug/dL Performed By: #### 3 016-3, 2143-6 ####[facility] LABCLIA [id number] [facility] [place] [address] [place] HbA1c (Bld)on 01-23-2023 Average glucose Estimated from glycated hemoglobin (Bld) [Mass/Vol] 105 mg/dL Normal [facility] Comment on above: Order Comment: Vero barton Type: BLOOD SPECIMENOrdering Facility: [facility] Address: [address] [place] [address] Result Comment: eAG: (Estimated average glucose) is a calculated value from HgbA1c and is operations support representative of the average blood glucose level in the last 2-3 month period. Performed By: #### 5 5454-3 ####[facility] LABIA [id number] [address] STATES OF [facility] HbA1c (Bld) [Mass fraction] 5.3 % Normal 4.3-5.6 [facility] Comment on above: Order Comment: Vero barton Type: BLOOD SPECIMENOrdering Facility: [facility] Address: [address] [place] [address] Result Comment: Amer [place] Diabetes Association guidelines indicate that patients with HgbA1c in the range 5.7-6.4% are at increased risk for development of diabetes, and intervention by lifestyle modification may be beneficial. HgbA1c greater or equal to 6.5% is considered diagnostic of diabetes. Performed By: #### 5 5454-3 ####[facility] LABIA [id number] [address] [place] TSH SerPl-aCncon 01-23-2023 TSH Qn 2.850 m[IU]/L Normal 0.270-4.200 [facility] Comment on above: Order Comment: Vero barton Type: BLOOD SPECIMENOrdering Facility: [facility] Address: [address] [place] [address] Performed By: #### 3 016-3, 2143-6 ####[facility] LABIA [id number] [address] [place] ECHOCARDIO M/2D COMPLETEon 0 01-11-2023 ECHOCARDIO M/2D COMPLETE Patient: JUAN JOSE AUSTINFloyd Exam Date: 01/11/2023 : 1940 Gender:M Ordering : DR YOAN SNEED . Admission #: [id number] Family : DR CASEY CASTANEDA M.D. Order #: [id number] CLICK HERE TO VIEW EXAM ECHOCARDIOGRAM REPORT [...] Michel M.D. on 01/11/2023 at 15:32 Normal [facility] CNPNon 01-08-2023 CNPN Normal [facility] CNOVSPon 01-02-2023 CNOVSP Normal [facility] CBC W Auto Differential pane l (Bld)on 12-31-2022 Basophils (Bld) [#/Vol] 0.06 10*3/uL Normal <0.11 [facility] Comment on above: Order Comment: Speci men Type: BLOOD SPECIMENOrdering Facility: [facility] Address: [address] [place] [address] Performed By: #### 5 7021-8 ####[facility] LABCLIA [id number] [place] [address] Basophils/100 WBC (Bld) 0.7 % Normal [facility] Comment on above: Order Comment: Speci men Type: BLOOD SPECIMENOrdering Facility: [facility] Address: [address] [place] [address] Performed By: #### 5 7021-8 ####[facility] LABCLIA [id number] [place] [address] Differential cell count method Nom (Bld) Auto Normal [facility] Comment on above: Order Comment: Speci men Type: BLOOD SPECIMENOrdering Facility: [facility] Address: [address] [place] [address] Performed By: #### 5 7021-8 ####[facility] LABCLIA [id number] [place] [address] Eosinophils (Bld) [#/Vol] 0.25 10*3/uL Normal <0.46 [facility] Comment on above: Order Comment: Speci men Type: BLOOD SPECIMENOrdering Facility: [facility] Address: [address] [place] [address] Performed By: #### 5 7021-8 ####[facility] LABCLIA [id number] [place] [address] Eosinophils/100 WBC (Bld) 3.1 % Normal [facility] Comment on above: Order Comment: Speci men Type: BLOOD SPECIMENOrdering Facility: [facility] Address: [address] [place] [address] Performed By: #### 5 7021-8 ####[facility] LABCLIA [id number] [place] [address] Erythrocyte distribution width (RBC) [Ratio] 16.1 % High 11.5-15.0 [facility] Comment on above: Order Comment: Speci men Type: BLOOD SPECIMENOrdering Facility: [facility] Address: [address] [place] [address] Performed By: #### 5 7021-8 ####[facility] LABCLIA [id number] [place] [address] Hematocrit (Bld) [Volume fraction] 39.5 % Normal 39.0-51.0 [facility] Comment on above: Order Comment: Speci men Type: BLOOD SPECIMENOrdering Facility: [facility] Address: [address] [place] [address] Performed By: #### 5 7021-8 ####[facility] LABCLIA [id number] [place] [address] Hemoglobin (Bld) [Mass/Vol] 12.8 g/dL Low 13.0-17.0 [facility] Comment on above: Order Comment: Speci men Type: BLOOD SPECIMENOrdering Facility: [facility] Address: [address] [place] [address] Performed By: #### 5 7021-8 ####[facility] LABCLIA [id number] [place] [address] Immature granulocytes (Bld) [#/Vol] 0.03 10*3/uL Normal <0.10 [facility] Comment on above: Order Comment: Speci men Type: BLOOD SPECIMENOrdering Facility: [facility] Address: [address] [place] [address] Performed By: #### 5 7021-8 ####[facility] LABCLIA [id number] [place] [address] Immature granulocytes/100 WBC (Bld) 0.4 % Normal [facility] Comment on above: Order Comment: Speci men Type: BLOOD SPECIMENOrdering Facility: [facility] Address: [address] [place] [address] Performed By: #### 5 7021-8 ####[facility] LABIA [id number] [place] [address] Lymphocytes (Bld) [#/Vol] 0.93 10*3/uL Low 1.00-4.00 [facility] Comment on above: Order Comment: Speci men Type: BLOOD SPECIMENOrdering Facility: [facility] Address: [address] [place] [address] Performed By: #### 5 7021-8 ####[facility] LABCLIA [id number] [place] [address] Lymphocytes/100 WBC (Bld) 11.6 % Normal [facility] Comment on above: Order Comment: Speci men Type: BLOOD SPECIMENOrdering Facility: [facility] Address: [address] [place] [address] Performed By: #### 5 7021-8 ####[facility] LABCLIA [id number] [place] [address] MCH (RBC) [Entitic mass] 26.4 pg Normal 26.0-34.0 [facility] Comment on above: Order Comment: Speci men Type: BLOOD SPECIMENOrdering Facility: [facility] Address: [address] [place] [address] Performed By: #### 5 7021-8 ####[facility] LABIA [id number] [place] [address] MCHC (RBC) [Mass/Vol] 32.4 g/dL Normal 30.5-36.0 [facility] Comment on above: Order Comment: Speci men Type: BLOOD SPECIMENOrdering Facility: [facility] Address: [address] [place] [address] Performed By: #### 5 7021-8 ####[facility] LABCLIA [id number] [place] [address] MCV (RBC) [Entitic vol] 81.4 fL Normal 80.0-100.0 [facility] Comment on above: Order Comment: Speci men Type: BLOOD SPECIMENOrdering Facility: [facility] Address: [address] [place] [address] Performed By: #### 5 7021-8 ####[facility] LABIA [id number] [place] [address] Monocytes (Bld) [#/Vol] 0.49 10*3/uL Normal <0.87 [facility] Comment on above: Order Comment: Speci men Type: BLOOD SPECIMENOrdering Facility: [facility] Address: [address] [address] Performed By: #### 5 7021-8 ####[facility] LABCLIA [id number] [place] [address] Monocytes/100 WBC (Bld) 6.1 % Normal [facility] Comment on above: Order Comment: Speci men Type: BLOOD SPECIMENOrdering Facility: [facility] Address: [address] [address] Performed By: #### 5 7021-8 ####[facility] LABCLIA [id number] [place] [address] Neutrophils (Bld) [#/Vol] 6.25 10*3/uL Normal 1.45-7.50 [facility] Comment on above: Order Comment: Speci men Type: BLOOD SPECIMENOrdering Facility: [facility] Address: [address] [address] Performed By: #### 5 7021-8 ####[facility] LABIA [id number] [place] [address] Neutrophils/100 WBC (Bld) 78.1 % Normal [facility] Comment on above: Order Comment: Speci men Type: BLOOD SPECIMENOrdering Facility: [facility] Address: [address] Performed By: #### 5 7021-8 ####[facility] LABIA [id number] [place] [address] Nucleated RBC (Bld) [#/Vol] 10*3/uL Normal <0.01 [facility] Comment on above: Order Comment: Speci men Type: BLOOD SPECIMENOrdering Facility: [facility] Address: [address] [address] Performed By: #### 5 7021-8 ####[facility] LABCLIA [id number] [place] [address] Nucleated RBC/100 WBC (Bld) [Ratio] 0.0 /100 WBC Normal [facility] Comment on above: Order Comment: Speci men Type: BLOOD SPECIMENOrdering Facility: [facility] Address: [address] [place] [address] Performed By: #### 5 7021-8 ####[facility] LABCLIA [id number] [place] [address] Platelet mean volume (Bld) [Entitic vol] 9.1 fL Normal 9.0-12.7 [facility] Comment on above: Order Comment: Speci men Type: BLOOD SPECIMENOrdering Facility: [facility] Address: [address] [place] [address] Performed By: #### 5 7021-8 ####[facility] LABIA [id number] [place] [address] Platelets (Bld) [#/Vol] 215 10*3/uL Normal 150-400 [facility] Comment on above: Order Comment: Speci men Type: BLOOD SPECIMENOrdering Facility: [facility] Address: [address] [place] [address] Performed By: #### 5 7021-8 ####[facility] LABCLIA [id number] [place] [address] RBC (Bld) [#/Vol] 4.85 10*6/uL Normal 4.20-6.00 [facility] Comment on above: Order Comment: Speci men Type: BLOOD SPECIMENOrdering Facility: [facility] Address: [address] [place] [address] Performed By: #### 5 7021-8 ####[facility] LABCLIA [id number] [place] [address] WBC (Bld) [#/Vol] 8.01 10*3/uL Normal 3.70-11.00 [facility] Comment on above: Order Comment: Speci men Type: BLOOD SPECIMENOrdering Facility: [facility] Address: [address] [place] [address] Performed By: #### 5 7021-8 ####[facility] LABCLIA [id number] [place] [address] CNCNPATEDon 12-31-2022 CNCNPATED Normal [facility] metabolic 2000 panelon 12-31-2022 Albumin [Mass/Vol] 4.4 g/dL Normal 3.9-4.9 [facility] Comment on above: Order Comment: Speci men Type: BLOOD SPECIMENOrdering Facility: [facility] Address: [address] [place] [address] Performed By: #### 2 4323-8 ####[facility] LABCLIA [id number] [place] [address] ALP [Catalytic activity/Vol] 76 U/L Normal 38-113 [facility] Comment on above: Order Comment: Speci men Type: BLOOD SPECIMENOrdering Facility: [facility] Address: [address] [place] [address] Performed By: #### 2 4323-8 ####[facility] LABCLIA [id number] [place] [address] ALT [Catalytic activity/Vol] 13 U/L Normal 10-54 [facility] Comment on above: Order Comment: Speci men Type: BLOOD SPECIMENOrdering Facility: [facility] Address: [address] [place] [address] Performed By: #### 2 4323-8 ####[facility] LABCLIA [id number] [place] [address] Anion gap [Moles/Vol] 11 mmol/L Normal 9-18 [facility] Comment on above: Order Comment: Speci men Type: BLOOD SPECIMENOrdering Facility: [facility] Address: [address] [place] [address] Performed By: #### 2 4323-8 ####[facility] LABCLIA [id number] [place] [address] AST [Catalytic activity/Vol] 22 U/L Normal 14-40 [facility] Comment on above: Order Comment: Speci men Type: BLOOD SPECIMENOrdering Facility: [facility] Address: [address] [place] [address] Performed By: #### 2 4323-8 ####[facility] LABCLIA [id number] [place] [address] Bilirubin [Mass/Vol] 0.4 mg/dL Normal 0.2-1.3 [facility] Comment on above: Order Comment: Speci men Type: BLOOD SPECIMENOrdering Facility: [facility] Address: [address] [place] [address] Performed By: #### 2 4323-8 ####[facility] LABCLIA [id number] [place] [address] Calcium [Mass/Vol] 9.7 mg/dL Normal 8.5-10.2 [facility] Comment on above: Order Comment: Speci men Type: BLOOD SPECIMENOrdering Facility: [facility] Address: [address] [place] [address] Performed By: #### 2 4323-8 ####[facility] LABCLIA [id number] [place] [address] Chloride [Moles/Vol] 101 mmol/L Normal 97-105 [facility] Comment on above: Order Comment: Speci men Type: BLOOD SPECIMENOrdering Facility: [facility] Address: [address] [place] [address] Performed By: #### 2 4323-8 ####[facility] LABCLIA [id number] [place] [address] CO2 [Moles/Vol] 26 mmol/L Normal 22-30 [facility] Comment on above: Order Comment: Speci men Type: BLOOD SPECIMENOrdering Facility: [facility] Address: [address] [address] Performed By: #### 2 4323-8 ####[facility] LABCLIA [id number] [place] [address] Creatinine [Mass/Vol] 1.93 mg/dL High 0.73-1.22 [facility] Comment on above: Order Comment: Speci men Type: BLOOD SPECIMENOrdering Facility: [facility] Address: [address] [address] Performed By: #### 2 4323-8 ####[facility] LABCLIA [id number] [place] [address] ESTIMATED GLOMERULAR FILTRATION RATE 34 mL/min/1.73m??? Low >=60 [facility] Comment on above: Order Comment: Speci men Type: BLOOD SPECIMENOrdering Facility: [facility] Address: [address] [place] [address] Result Comment: Viviana mated Glomerular Filtration Rate [...] actual GFR. Performed By: #### 2 4323-8 ####[facility] LABCLIA [id number] [place] [address] Glucose [Mass/Vol] 116 mg/dL High 74-99 [facility] Comment on above: Order Comment: Speci oralia Type: BLOOD SPECIMENOrdering Facility: [facility] Address: [address] [place] [address] Result Comment: The [place] Diabetes Association (ADA) provides guidance for cutoff [...] Standards of Medical Care in Diabetes 2016, [place] [employer]. Diabetes Care. 2016.39(Suppl 1). Performed By: #### 2 4323-8 ####[facility] LABCLIA [id number] [place] [address] Potassium [Moles/Vol] 4.2 mmol/L Normal 3.7-5.1 [facility] Comment on above: Order Comment: Speci men Type: BLOOD SPECIMENOrdering Facility: [facility] Address: [address] [place] [address] Performed By: #### 2 4323-8 ####[facility] LABIA [id number] [place] [address] Protein [Mass/Vol] 6.6 g/dL Normal 6.3-8.0 [facility] Comment on above: Order Comment: Speci men Type: BLOOD SPECIMENOrdering Facility: [facility] Address: [address] [place] [address] Performed By: #### 2 4323-8 ####[facility] LABCLIA [id number] [place] [address] Sodium [Moles/Vol] 138 mmol/L Normal 136-144 [facility] Comment on above: Order Comment: Speci men Type: BLOOD SPECIMENOrdering Facility: [facility] Address: [address] [place] [address] Performed By: #### 2 4323-8 ####[facility] LABIA [id number] [place] [address] Urea nitrogen [Mass/Vol] 37 mg/dL High 9-24 [facility] Comment on above: Order Comment: Speci men Type: BLOOD SPECIMENOrdering Facility: [facility] Address: [address] [address] Performed By: #### 2 4323-8 ####[facility] LABCLIA [id number] [place] [address] Beverly ValdesHemalathaseda 01-01-20 Cortisol [Mass/Vol] 6.4 ug/dL Normal 4.8-19.5 [facility] Comment on above: Order Comment: Speci men Type: BLOOD SPECIMENOrdering Facility: [facility] Address: [address] [address] Result Comment: Prov ided reference range is from 6-10 AM sample collection time.Cortisol Reference Range: 6-10 AM = 4.8-19.5 ug/dL, 4-8 PM = 2.5-11.9 ug/dL Performed By: #### 3 016-3, 2143-6 ####[facility] LABCLIA [id number] [address] [place] HbA1c (Bld)on 12-31-2022 Average glucose Estimated from glycated hemoglobin (Bld) [Mass/Vol] 105 mg/dL Normal [facility] Comment on above: Order Comment: Vero barton Type: BLOOD SPECIMENOrdering Facility: [facility] Address: [address] [place] [address] Result Comment: eAG: (Estimated average glucose) is a calculated value from HgbA1c and is operations support representative of the average blood glucose level in the last 2-3 month period. Performed By: #### 5 5454-3 ####[facility] LABCLIA [id number] [place] [address] [place] HbA1c (Bld) [Mass fraction] 5.3 % Normal 4.3-5.6 [facility] Comment on above: Order Comment: Vero barton Type: BLOOD SPECIMENOrdering Facility: [facility] Address: [address] [place] [address] Result Comment: [place] Diabetes Association guidelines indicate that patients with HgbA1c in the range 5.7-6.4% are at increased risk for development of diabetes, and intervention by lifestyle modification may be beneficial. HgbA1c greater or equal to 6.5% is considered diagnostic of diabetes. Performed By: #### 5 5454-3 ####[facility] LABCLIA [id number] [id number] [facility] [place] TSH SerPl-aCncon 12-31-2022 TSH Qn 3.730 m[IU]/L Normal 0.270-4.200 [facility] Comment on above: Order Comment: Speci men Type: BLOOD SPECIMENOrdering Facility: [facility] Address: [address] [place] [address] Performed By: #### 3 016-3, 2143-6 ####[facility] LABIA [id number] [address] OF [facility] Consent for Procedure/Surger yon 12-20-2022 Consent for Procedure/Surgery [id number]:127 Normal [facility] Urology Office/Clinic Noteon 12-18-2022 Urology Office/Clinic Note [...] [facility] [address], [place] [address]- Additional Instructions: PRN Patient Education I, Marisabel [...] tab(s), O (more content not included)... Normal [facility] Comment on above: Result Comment: Elec tronically Signed By: Jian RODRIGUEZ MD\.br\Date and Time Signed: 12/18/22 12:13 EST\.br\Electronically Co-Signed By: Marisabel Reeves P\.br\Date and Time Co-Signed: 12/18/22 12:12 EST CBC AUTO DIFFon 02-25-2023 BASO # 0.1 103/ul Normal 0.0-0.1 [facility] Comment on above: Performed By: #### C K, HSTROPN, CMP, BNP #### [facility] [address] [place] [address] Dr. Tan Oliveros Basophils/100 WBC (Bld) 0.9 % Normal 0.2-2.0 [facility] Comment on above: Performed By: #### C K, HSTROPN, CMP, BNP #### [facility] [address] [place] [address] Dr. Tan Oliveros EO # 0.2 103/ul Normal 0.0-0.7 [facility] Comment on above: Performed By: #### C K, HSTROPN, CMP, BNP #### [facility] [address] [place] [address] Dr. Tan Oliveros Eosinophils/100 WBC (Bld) 3.7 % Normal 0.9-7.0 [facility] Comment on above: Performed By: #### C K, HSTROPN, CMP, BNP #### [facility] [address] [place] [address] Dr. Tan Oliveros Erythrocyte distribution width (RBC) [Ratio] 17.1 % Critically high 11.0-15.0 [facility] Comment on above: Performed By: #### C K, HSTROPN, CMP, BNP #### [facility] [address] [place] [address] Dr. Tan Oliveros Hematocrit (Bld) [Volume fraction] 38.5 % Critically low 42.0-54.0 [facility] Comment on above: Performed By: #### C K, HSTROPN, CMP, BNP #### [facility] [address] [place] [address] Dr. Tan Oliveros Hemoglobin (Bld) [Mass/Vol] 12.7 g/dL Critically low 14.0-18.0 [facility] Comment on above: Performed By: #### C K, HSTROPN, CMP, BNP #### [facility] [address] [place] [address] Dr. Tan Oliveros IG # 0.02 10e3/ul Normal 0.00-0.03 [facility] Comment on above: Performed By: #### C K, HSTROPN, CMP, BNP #### [facility] [address] [place] [address] Dr. Tan Oliveros IG % 0.4 % Normal 0.0-0.5 [facility] Comment on above: Performed By: #### C K, HSTROPN, CMP, BNP #### [facility] [address] [place] [address] Dr. Tan Oliveros LYMPH # 0.7 103/ul Critically low 1.2-3.8 [facility] Comment on above: Performed By: #### C K, HSTROPN, CMP, BNP #### [facility] [address] [place] [address] Dr. Tan Oliveros Lymphocytes/100 WBC (Bld) 12.3 % Critically low 20.5-60.0 [facility] Comment on above: Performed By: #### C K, HSTROPN, CMP, BNP #### [facility] [address] [place] [address] Dr. Tan Oliveros MANUAL DIFF REQ NO Normal [facility] Comment on above: Performed By: #### C K, HSTROPN, CMP, BNP #### [facility] [address] [place] [address] Dr. Tan Oliveros MCH (RBC) [Entitic mass] 26.1 pg Normal 25.9-34.0 [facility] Comment on above: Performed By: #### C K, HSTROPN, CMP, BNP #### [facility] [address] [place] [address] Dr. Tan Oliveros MCHC (RBC) [Mass/Vol] 33.0 g/dL Normal 29.9-35.2 [facility] Comment on above: Performed By: #### C K, HSTROPN, CMP, BNP #### [facility] [address] [place] [address] Dr. Tan Oliveros MCV (RBC) [Entitic vol] 79.2 fL Critically low 80.0-94.0 [facility] Comment on above: Performed By: #### C K, HSTROPN, CMP, BNP #### [facility] [address] [place] [address] Dr. Tan Oliveros MONO # 0.4 103/ul Normal 0.3-0.8 [facility] Comment on above: Performed By: #### C K, HSTROPN, CMP, BNP #### [facility] [address] [place] [address] Dr. Tan Oliveros Monocytes/100 WBC (Bld) 6.5 % Normal 1.7-12.0 [facility] Comment on above: Performed By: #### C K, HSTROPN, CMP, BNP #### [facility] [address] [place] [address] Dr. Tan Oliveros NEUT # 4.3 103/ul Normal 1.4-6.5 [facility] Comment on above: Performed By: #### C K, HSTROPN, CMP, BNP #### [facility] [address] [place] [address] Dr. Tan Oliveros Neutrophils/100 WBC (Bld) 76.2 % Critically high 43.0-75.0 [facility] Comment on above: Performed By: #### C K, HSTROPN, CMP, BNP #### [facility] [address] [place] [address] Dr. Tan Oliveros Platelet mean volume (Bld) [Entitic vol] 9.7 fL Normal 9.5-13.5 [facility] Comment on above: Performed By: #### C K, HSTROPN, CMP, BNP #### [facility] [address] [place] [address] Dr. Tan Oliveros PLT 199 103/ul Normal 150-450 [facility] Comment on above: Performed By: #### C K, HSTROPN, CMP, BNP #### [facility] [address] [place] [address] Dr. Tan Oliveros RBC 4.86 106/ul Normal 4.70-6.10 [facility] Comment on above: Performed By: #### C K, HSTROPN, CMP, BNP #### [facility] [address] [place] [address] Dr. Tan Oliveros WBC 5.7 103/ul Normal 4.0-11.0 [facility] Comment on above: Performed By: #### C K, HSTROPN, CMP, BNP #### [facility] [address] [place] [address] Dr. Tan Oliveros CULTURE URINEon 12-08-2022 CULTURE URINE Culture Observations : NO GROWTH. Normal [facility] Comment on above: Performed By: #### C K, HSTROPN, CMP, BNP #### [facility] [address] [place] [address] Dr. Tan Oliveros ER URINE PROFILEon Bilirubin Ql (U) Negative Normal NEGATIVE [facility] Comment on above: Performed By: #### C K, HSTROPN, CMP, BNP #### [facility] [address] [place] [address] Dr. Tan Oliveros Clarity (U) CLEAR Normal CLEAR [facility] Comment on above: Performed By: #### C K, HSTROPN, CMP, BNP #### [facility] [address] [place] [address] Dr. Tan Oliveros Color (U) LT. YELLOW Normal YELLOW [facility] Comment on above: Performed By: #### C K, HSTROPN, CMP, BNP #### [facility] [address] [place] [address] Dr. Tan Oliveros ERUAHD A micrscopic examination will be performed if indicated. Normal [facility] Comment on above: Performed By: #### C K, HSTROPN, CMP, BNP #### [facility] [address] [place] [address] Dr. Tan Oliveros Glucose Ql (U) Negative Normal NEGATIVE [facility] Comment on above: Performed By: #### C K, HSTROPN, CMP, BNP #### [facility] [address] [place] [address] Dr. Tan Oliveros Hemoglobin Ql (U) LARGE Abnormal NEGATIVE [facility] Comment on above: Performed By: #### C K, HSTROPN, CMP, BNP #### [facility] [address] [address] [address] Tan Oliveros Ketones Ql (U) Negative Normal NEGATIVE [facility] Comment on above: Performed By: #### C K, HSTROPN, CMP, BNP #### [facility] [address] [address] [address] Tan Oliveros LEUKOCYTES SMALL Abnormal NEGATIVE [facility] Comment on above: Performed By: #### C K, HSTROPN, CMP, BNP #### [facility] [address] [address] [address] Tan Oliveros Nitrite Ql (U) Negative Normal NEGATIVE [facility] Comment on above: Performed By: #### C K, HSTROPN, CMP, BNP #### [facility] [address] [place] [address] Dr. Tan Oliveros pH (U) 6.0 [pH] Normal 5-9 [facility] Comment on above: Performed By: #### C K, HSTROPN, CMP, BNP #### [facility] [address] [address] [address] Tan Oliveros SPEC GRAVITY 1.010 Normal 1.005-<=1.025 [facility] Comment on above: Performed By: #### C K, HSTROPN, CMP, BNP #### [facility] [address] [address] [address] Tan Oliveros UA PROTEIN Negative Normal NEGATIVE/ TRACE [facility] Comment on above: Performed By: #### C K, HSTROPN, CMP, BNP #### [facility] [address] [address] [address] Tan Oliveros UR MICRO IND INDICATED Normal [facility] Comment on above: Performed By: #### C K, HSTROPN, CMP, BNP #### [facility] [address] [address] [address] Tan Oliveros Urobilinogen Qn (U) 0.2 {Maged'U}/dL Normal 0.2 - 1. 0 [facility] Comment on above: Performed By: #### C K, NEEL, CMP, BNP #### [facility] [address] [address] [address] Tan Oliveros POINT OF CARE GLUCOSEon 11-15 Glucose [Mass/Vol] 114 mg/dL Critically high 74-106 [facility] Comment on above: Performed By: #### C K, ARMANDOTRYADIEL, CMP, BNP #### [facility] [address] [address] [address] Tan Oliveros PROF CHEM 8 (BAS METB)on Anion gap [Moles/Vol] 13.2 mmol/L Normal [facility] Comment on above: Performed By: #### H FIONA, BMP #### [facility] [address] [address] [address] Tan Oliveros Calcium [Mass/Vol] 8.9 mg/dL Normal 8.5-10.1 [facility] Comment on above: Performed By: #### H DEEPN, BMP #### [facility] [address] [address] [address] Tan Oliveros Chloride [Moles/Vol] 104 mmol/L Normal 98-107 [facility] Comment on above: Performed By: #### H DEEPN, BMP #### [facility] [address] [address] [address] Tan Oliveros CO2 [Moles/Vol] 27.1 mmol/L Normal 21.0-32.0 [facility] Comment on above: Performed By: #### H STROPN, BMP #### [facility] [address] [address] [address] Tan Oliveros Creatinine [Mass/Vol] 2.11 mg/dL Critically high 0.70-1.30 [facility] Comment on above: Performed By: #### H STROPN, BMP #### [facility] [address] [address] [address] Tan Oliveros EGFR-AF MALAYSIAN 37 mL/min/1.73m2 Critically low >=60 [facility] Comment on above: Performed By: #### H STROPN, BMP #### [facility] [address] [address] [address] Tan Oliveros EGFR-NON AF MALAYSIAN 30 mL/min/1.73m2 Critically low >=60 [facility] Comment on above: Performed By: #### H STROPN, BMP #### [facility] [address] [address] [address] Tan Oliveros Glucose [Mass/Vol] 107 mg/dL Critically high 74-106 [facility] Comment on above: Performed By: #### H STROPN, BMP #### [facility] [address] [place] [address] Dr. Tan Oliveros Potassium [Moles/Vol] 4.3 mmol/L Normal 3.5-5.1 [facility] Comment on above: Performed By: #### H STROPN, BMP #### [facility] [address] [place] [address] Dr. Tan Oliveros Sodium [Moles/Vol] 140 mmol/L Normal 136-145 [facility] Comment on above: Performed By: #### H STROPN, BMP #### [facility] [address] [place] [address] Dr. Tan Oliveros Urea nitrogen [Mass/Vol] 32.0 mg/dL Critically high 7.0-18.0 [facility] Comment on above: Performed By: #### H STROPN, BMP #### [facility] [address] [place] [address] Dr. Tan Oliveros Urea nitrogen/Creatinine [Mass ratio] 15.2 mg/mg Normal [facility] Comment on above: Performed By: #### H STROPN, BMP #### [facility] [address] [place] [address] Dr. Tan Oliveros TROPONIN, HIGH SENSITIVITYon 12-08-2022 HSTROP 54.6 pg/mL Normal 4.0-76.1 [facility] Comment on above: Result Comment: CUT- OFF POINTS HAVE BEEN ESTABLISHED BASED ON THE FOURTH UNIVERSAL DEFINITIONS OF MYOCARDIAL INFARCTION. THE UPPER REFERENCE LIMIT (URL) OF TROPONIN, DEFINED THE 99TH PERCENTILE OF cTnI DISTRIBUTION IN A REFERENCE POPULATION, HAS BEEN CONFIRMED THE DECISION THRESHOLD FOR [place] DIAGNOSIS. Performed By: #### H STROPN, BMP #### [facility] [address] [place] [address] Dr. Tan Oliveros URINE MICROSCOPIC ONLYon BACTERIA TRACE Abnormal NONE SEEN [facility] Comment on above: Performed By: #### C K, HSTROPN, CMP, BNP #### [facility] [address] [place] [address] Dr. Tan Oliveros Bacteria identified Cx Nom (U) INDICATED Normal [facility] Comment on above: Performed By: #### C K, HSTROPN, CMP, BNP #### [facility] [address] [place] [address] Dr. Tan Oliveros CAST NONE SEEN Normal NONE SEEN [facility] Comment on above: Performed By: #### C K, HSTROPN, CMP, BNP #### [facility] [address] [place] [address] Dr. Tan Oliveros Crystals LM Nom (Urine sed) NONE SEEN Normal NONE SEEN [facility] Comment on above: Performed By: #### C K, HSTROPN, CMP, BNP #### [facility] [address] [place] [address] Dr. Tan Oliveros Epithelial cells LM Ql (Urine sed) RARE Normal NONE SEEN /RARE [facility] Comment on above: Performed By: #### C K, HSTROPN, CMP, BNP #### [facility] [address] [place] [address] Dr. Tan Oliveros MUCOUS NONE SEEN Normal NONE SEEN [facility] Comment on above: Performed By: #### C K, HSTROPN, CMP, BNP #### [facility] [address] [place] [address] Dr. Tan Oliveros RBC 20-50 Abnormal 0-2 [facility] Comment on above: Performed By: #### C K, HSTROPN, CMP, BNP #### [facility] [address] [place] [address] Dr. Tan Oliveros WBC 2-5 Abnormal NONE SEEN [facility] Comment on above: Performed By: #### C K, HSTROPN, CMP, BNP #### [facility] [address] [place], [place] [address] Dr. Tan Oliveros XR CHEST 1 Von 12-08-2022 XR CHEST 1 V EXAM: XR CHEST 1 V HISTORY: SHORTNESS OF BREATH COMPARISON: 02/26/2022 TECHNIQUE: Single view of the FINDINGS: Heart size normal. No focal consolidation, pleural effusion, pulmonary congestion or pneumothorax. IMPRESSION: No acute findings. Electronically authenticated by: AUGUSTINA JAMES Date: 2022-12-08 12:54 Normal [facility] Screenson 12-06-2022 Screens [id number] CD:127 Normal [facility] Ambulatory Visit Summaryon 0 12-05-2022 Ambulatory Visit Summary JUAN JOSE AUSTIN :1940 Visit Date:12/05/2022 Ambulatory Visit Instructions Your Diagnosis Enlarged prostate with urinary obstruction Bladder cancer Cancer of kidney Gross hematuria Other obstructive and reflux uropathy Tests Performed Urnls Dip Stick Auto w/o Microscopy POC 785[address] Your Care Team Attending Physician - JENNIFER FOUNTAIN, Jian Lee Primary Care Physician - Yoan Sneed MD [...] Following Appointments Follow Up with JENNIFER FOUNTAIN, TIFFANIE De Paz When: Where: [facility] [address], [place] [address]- Medications What How Much When Instructions Unchanged [...] Urnls Dip Stick Auto w/o Microscopy POC 01631 (12/05/2022) Bilirubin Urine Dipstick - Negative Blood Urine Dipstick - 3+ Large Glucose Urine Dipstick - 1+ 250 mg/dl Ketones Urine Dipstick - Negative Leukocytes Urine Dipstick - 1+ Small Nitrite Urine Dipstick - Negative Protein Urine Dipstick - Trace Specific [place] Urine Dipstick - 1.020 Urine Appearance Urine [...] may make (more content not included)... Normal [facility] Patient Educationon 12-05-19 Patient Education Oncology Bladder [...] Follow these instructions at home: ? Take opyd-gwb-payfzjh and prescription medicines only as told by [...] important. Where to find more information ? [place] [employer]: www.cancer.org ? National Cancer [place] (NCI): www.cancer.gov Contact a health care provider [...] 10/02/2004 Document Revised: 09/12/2018 Document Reviewed: 09/03/2017 [employer] Patient Education ? 2019 [employer]. [facility] Urology Office/Clinic Noteon 12-05-2022 Urology Office/Clinic Note [...] UA today shows large blood and small JOHNNIE Other obstructive and reflux uropathy (N13.8: Other obstructive and reflux uropathy) Follow-up With When Contact Information JENNIFER FOUNTAIN, Jian Lee, URL [facility] [address], [place] [address]- Additional Instructions: Patient Education Bladder Cancer I, [...] Gross hematuria (more content not included)... Normal [facility] Comment on above: Result Comment: Elec tronically Signed By: Jian RODRIGUEZ MD\.br\Date and Time Signed: 12/05/22 10:43 EST\.br\Electronically Co-Signed By: Priya Moodybr\Date and Time Co-Signed: 12/05/22 10:40 EST Consultation Noteon 11-27-19 Consultation Note [id number] 0CD:127 Normal [facility] CBC AUTO DIFFon 11-09-2022 BASO # 0.1 103/ul Normal 0.0-0.1 [facility] Comment on above: Performed By: #### C K, HSTROPN, CMP, BNP #### [facility] [address] [place] [address] Dr. Tan Oliveros Basophils/100 WBC (Bld) 0.7 % Normal 0.2-2.0 [facility] Comment on above: Performed By: #### C K, HSTROPN, CMP, BNP #### [facility] [address] [place] [address] Dr. Tan Oliveros EO # 0.2 103/ul Normal 0.0-0.7 [facility] Comment on above: Performed By: #### C K, HSTROPN, CMP, BNP #### [facility] [address] [place] [address] Dr. Tan Oliveros Eosinophils/100 WBC (Bld) 2.6 % Normal 0.9-7.0 [facility] Comment on above: Performed By: #### C K, HSTROPN, CMP, BNP #### [facility] [address] [place] [address] Dr. Tan Oliveros Erythrocyte distribution width (RBC) [Ratio] 17.2 % Critically high 11.0-15.0 [facility] Comment on above: Performed By: #### C K, HSTROPN, CMP, BNP #### [facility] [address] [place] [address] Dr. Tan Oliveros Hematocrit (Bld) [Volume fraction] 43.8 % Normal 42.0-54.0 [facility] Comment on above: Performed By: #### C K, HSTROPN, CMP, BNP #### [facility] [address] [place] [address] Dr. Tan Oliveros Hemoglobin (Bld) [Mass/Vol] 14.4 g/dL Normal 14.0-18.0 [facility] Comment on above: Performed By: #### C K, HSTROPN, CMP, BNP #### [facility] [address] [place] [address] Dr. Tan Oliveros IG # 0.01 10e3/ul Normal 0.00-0.03 [facility] Comment on above: Performed By: #### C K, HSTROPN, CMP, BNP #### [facility] [address] [place] [address] Dr. Tan Oliveros IG % 0.1 % Normal 0.0-0.5 [facility] Comment on above: Performed By: #### C K, HSTROPN, CMP, BNP #### [facility] [address] [address] [address] Tan Oliveros LYMPH # 1.3 103/ul Normal 1.2-3.8 [facility] Comment on above: Performed By: #### C K, HSTROPN, CMP, BNP #### [facility] [address] [place] [address] Dr. Tan Oliveros Lymphocytes/100 WBC (Bld) 18.4 % Critically low 20.5-60.0 [facility] Comment on above: Performed By: #### C K, HSTROPN, CMP, BNP #### [facility] [address] [place] [address] Dr. Tan Oliveros MANUAL DIFF REQ NO Normal [facility] Comment on above: Performed By: #### C K, HSTROPN, CMP, BNP #### [facility] [address] [place] [address] Dr. Tan Oliveros MCH (RBC) [Entitic mass] 25.0 pg Critically low 25.9-34.0 [facility] Comment on above: Performed By: #### C K, HSTROPN, CMP, BNP #### [facility] [address] [place] [address] Dr. Tan Oliveros MCHC (RBC) [Mass/Vol] 32.9 g/dL Normal 29.9-35.2 [facility] Comment on above: Performed By: #### C K, HSTROPN, CMP, BNP #### [facility] [address] [place] [address] Dr. Tan Oliveros MCV (RBC) [Entitic vol] 75.9 fL Critically low 80.0-94.0 [facility] Comment on above: Performed By: #### C K, HSTROPN, CMP, BNP #### [facility] [address] [place] [address] Dr. Tan Oliveros MONO # 0.5 103/ul Normal 0.3-0.8 [facility] Comment on above: Performed By: #### C K, HSTROPN, CMP, BNP #### [facility] [address] [place] [address] Dr. Tan Oliveros Monocytes/100 WBC (Bld) 7.1 % Normal 1.7-12.0 [facility] Comment on above: Performed By: #### C K, HSTROPN, CMP, BNP #### [facility] [address] [place] [address] Dr. Tan Oliveros NEUT # 5.1 103/ul Normal 1.4-6.5 [facility] Comment on above: Performed By: #### C K, HSTROPN, CMP, BNP #### [facility] [address] [place] [address] Dr. Tan Oliveros Neutrophils/100 WBC (Bld) 71.1 % Normal 43.0-75.0 [facility] Comment on above: Performed By: #### C K, HSTROPN, CMP, BNP #### [facility] [address] [place] [address] Dr. Tan Oliveros Platelet mean volume (Bld) [Entitic vol] 9.3 fL Critically low 9.5-13.5 [facility] Comment on above: Performed By: #### C K, HSTROPN, CMP, BNP #### [facility] [address] [place] [address] Dr. Tna Oliveros PLT 209 103/ul Normal 150-450 [facility] Comment on above: Performed By: #### C K, HSTROPN, CMP, BNP #### [facility] [address] [place] [address] Dr. Tan Oliveros RBC 5.77 106/ul Normal 4.70-6.10 [facility] Comment on above: Performed By: #### C K, HSTROPN, CMP, BNP #### [facility] [address] [place] [address] Dr. Tan Oliveros WBC 7.2 103/ul Normal 4.0-11.0 [facility] Comment on above: Performed By: #### C K, HSTROPN, CMP, BNP #### [facility] [address] [place] [address] Dr. Tan Oliveros CULTURE URINEon 11-09-2022 CULTURE URINE Culture Observations : NO GROWTH. Normal [facility] Comment on above: Performed By: #### C K, HSTROPN, CMP, BNP #### [facility] [address] [place] [address] Dr. Tan Oliveros ER URINE PROFILEon Bilirubin Ql (U) Unable to perform testing due to color interference. Abnormal NEGATIVE [facility] Comment on above: Performed By: #### C K, HSTROPN, CMP, BNP #### [facility] [address] [place] [address] Dr. Tan Oliveros Clarity (U) CLEAR Normal CLEAR [facility] Comment on above: Performed By: #### C K, HSTROPN, CMP, BNP #### [facility] [address] [place] [address] Dr. Tan Oliveros Color (U) RED Abnormal YELLOW [facility] Comment on above: Performed By: #### C K, HSTROPN, CMP, BNP #### [facility] [address] [place] [address] Dr. Tan Oliveros ERUAHD A micrscopic examination will be performed if indicated. Normal [facility] Comment on above: Performed By: #### C K, HSTROPN, CMP, BNP #### [facility] [address] [place] [address] Dr. Tan Oliveros Glucose Ql (U) Unable to perform testing due to color interference. Abnormal NEGATIVE [facility] Comment on above: Performed By: #### C K, HSTROPN, CMP, BNP #### [facility] [address] [place] [address] Dr. Tan Oliveros Hemoglobin Ql (U) Unable to perform testing due to color interference. Abnormal NEGATIVE [facility] Comment on above: Performed By: #### C K, HSTROPN, CMP, BNP #### [facility] [address] [address] [address] Tan Oliveros Ketones Ql (U) Unable to perform testing due to color interference. Abnormal NEGATIVE [facility] Comment on above: Performed By: #### C K, HSTROPN, CMP, BNP #### [facility] [address] [address] [address] Tan Oliveros LEUKOCYTES Unable to perform testing due to color interference. Abnormal NEGATIVE [facility] Comment on above: Performed By: #### C K, HSTROPN, CMP, BNP #### [facility] [address] [address] [address] Tan Oliveros Nitrite Ql (U) Unable to perform testing due to color interference. Abnormal NEGATIVE [facility] Comment on above: Performed By: #### C K, HSTROPN, CMP, BNP #### [facility] [address] [address] [address] Tan Oliveros pH Unable to perform testing due to color interference. Abnormal 5-9 [facility] Comment on above: Performed By: #### C K, HSTROPN, CMP, BNP #### [facility] [address] [place] [address] Dr. Tan Oliveros SPEC GRAVITY <=1.005 Abnormal 1.005-<=1.025 [facility] Comment on above: Performed By: #### C K, HSTROPN, CMP, BNP #### [facility] [address] [address] [address] Tan Oliveros UA PROTEIN Unable to perform testing due to color interference. Normal NEGATIVE/ TRACE [facility] Comment on above: Performed By: #### C K, HSTROPN, CMP, BNP #### [facility] [address] [address] [address] Tan Oliveros UR MICRO IND INDICATED Normal [facility] Comment on above: Performed By: #### C K, HSTROPN, CMP, BNP #### [facility] [address] [place] [address] Dr. Tan Oliveros UROBILINOGEN Unable to perform testing due to color interference. Normal 0.2 - 1.0 [facility] Comment on above: Performed By: #### C K, HSTROPN, CMP, BNP #### [facility] [address] [place] [address] Dr. Tan Oliveros PROF 14(COMP METB)on 023 Albumin [Mass/Vol] 3.8 g/dL Normal 3.4-5.0 [facility] Comment on above: Performed By: #### C K, HSTROPN, CMP, BNP #### [facility] [address] [place] [address] Dr. Tan Oliveros Albumin/Globulin [Mass ratio] 1.3 {ratio} Normal [facility] Comment on above: Performed By: #### C K, HSTROPN, CMP, BNP #### [facility] [address] [place] [address] Dr. Tan Oliveros ALP [Catalytic activity/Vol] 81 U/L Normal 46-116 [facility] Comment on above: Performed By: #### C K, HSTROPN, CMP, BNP #### [facility] [address] [place] [address] Dr. Tan Oliveros ALT [Catalytic activity/Vol] 20 U/L Normal 16-63 [facility] Comment on above: Performed By: #### C K, HSTROPN, CMP, BNP #### [facility] [address] [place] [address] Dr. Tan Oliveros Anion gap [Moles/Vol] 14.3 mmol/L Normal [facility] Comment on above: Performed By: #### C K, HSTROPN, CMP, BNP #### [facility] [address] [place] [address] Dr. Tan Oliveros AST [Catalytic activity/Vol] 26 U/L Normal 15-37 [facility] Comment on above: Performed By: #### C K, HSTROPN, CMP, BNP #### [facility] [address] [place] [address] Dr. Tan Oliveros Bilirubin [Mass/Vol] 0.7 mg/dL Normal 0.2-1.0 [facility] Comment on above: Performed By: #### C K, HSTROPN, CMP, BNP #### [facility] [address] [place] [address] Dr. Tan Oliveros Calcium [Mass/Vol] 8.9 mg/dL Normal 8.5-10.1 [facility] Comment on above: Performed By: #### C K, HSTROPN, CMP, BNP #### [facility] [address] [place] [address] Dr. Tan Oliveros Chloride [Moles/Vol] 101 mmol/L Normal 98-107 [facility] Comment on above: Performed By: #### C K, HSTROPN, CMP, BNP #### [facility] [address] [place] [address] Dr. Tan Oliveros CO2 [Moles/Vol] 27.9 mmol/L Normal 21.0-32.0 [facility] [place] [facility] Comment on above: Performed By: #### C K, HSTROPN, CMP, BNP #### [facility] [address] [place] [address] Dr. Tan Oliveros Creatinine [Mass/Vol] 1.85 mg/dL Critically high 0.70-1.30 [facility] Comment on above: Performed By: #### C K, HSTROPN, CMP, BNP #### [facility] [address] [place] [address] Dr. Tan Oliveros EGFR-AF MALAYSIAN 43 mL/min/1.73m2 Critically low >=60 [facility] Comment on above: Performed By: #### C K, HSTROPN, CMP, BNP #### [facility] [address] [place] [address] Dr. Tan Oliveros EGFR-NON AF MALAYSIAN 35 mL/min/1.73m2 Critically low >=60 [facility] Comment on above: Performed By: #### C K, HSTROPN, CMP, BNP #### [facility] [address] [place] [address] Dr. Tan Oliveros Globulin (S) [Mass/Vol] 3.0 g/dL Normal [facility] Comment on above: Performed By: #### C K, HSTROPN, CMP, BNP #### [facility] [address] [place] [address] Dr. Tan Oliveros Glucose [Mass/Vol] 114 mg/dL Critically high 74-106 [facility] Comment on above: Performed By: #### C K, HSTROPN, CMP, BNP #### [facility] [address] [place] [address] Dr. Tan Oliveros Potassium [Moles/Vol] 4.2 mmol/L Normal 3.5-5.1 [facility] Comment on above: Performed By: #### C K, HSTROPN, CMP, BNP #### [facility] [address] [place] [address] Dr. Tan Oliveros Protein [Mass/Vol] 6.8 g/dL Normal 6.4-8.2 [facility] Comment on above: Performed By: #### C K, HSTROPN, CMP, BNP #### [facility] [address] [place] [address] Dr. Tan Oliveros Sodium [Moles/Vol] 139 mmol/L Normal 136-145 [facility] Comment on above: Performed By: #### C K, HSTROPN, CMP, BNP #### [facility] [address] [place] [address] Dr. Tan Oliveros Urea nitrogen [Mass/Vol] 27.0 mg/dL Critically high 7.0-18.0 [facility] Comment on above: Performed By: #### C K, HSTROPN, CMP, BNP #### [facility] [address] [place] [address] Dr. Tan Oliveros Urea nitrogen/Creatinine [Mass ratio] 14.6 mg/mg Normal [facility] Comment on above: Performed By: #### C K, HSTROPN, CMP, BNP #### [facility] [address] [address] [address] Tan Oliveros PROTIMEon 11-09-2022 INR Coag (PPP) [Relative time] 0.99 {INR} Normal [facility] Comment on above: Performed By: #### C K, HSTROPN, CMP, BNP #### [facility] [address] [place] [address] Dr. Tan Oliveros INR GUIDELINES SEE BELOW Normal [facility] Comment on above: Result Comment: TYRELL RED INR: 2.0 - 3.0 CONDITIONS NOT LISTED BELOW 2.5 - 3.5 FOR PROSTHETIC HEART VALVE REPLACEMENT 2.5 - 3.5 RECURRENT THROMBOSIS Performed By: #### C K, HSTROPN, CMP, BNP #### [facility] [address] [place] [address] Dr. Tan Oliveros PT Coag (PPP) [Time] 10.5 s Normal 9.0-11.6 [facility] Comment on above: Performed By: #### C K, HSTROPN, CMP, BNP #### [facility] [address] [place] [address] Dr. Tan Oliveros PTTon 11-09-2022 aPTT Coag (Bld) [Time] 28.4 s Normal 22.3-36.2 [facility] Comment on above: Performed By: #### C K, HSTROPN, CMP, BNP #### [facility] [address] [place] [address] Dr. Tan Oliveros URINE MICROSCOPIC ONLYon BACTERIA TRACE Abnormal NONE SEEN [facility] Comment on above: Performed By: #### C K, HSTROPN, CMP, BNP #### [facility] [address] [place] [address] Dr. Tan Oliveros Bacteria identified Cx Nom (U) CX ALREADY ORDERED Normal [facility] Comment on above: Performed By: #### C K, HSTROPN, CMP, BNP #### [facility] [address] [place] [address] Dr. Tan Oliveros CAST NONE SEEN Normal NONE SEEN [facility] Comment on above: Performed By: #### C K, HSTROPN, CMP, BNP #### [facility] [address] [address] [address] Tan Oliveros Crystals LM Nom (Urine sed) NONE SEEN Normal NONE SEEN [facility] Comment on above: Performed By: #### C K, HSTROPN, CMP, BNP #### [facility] [address] [address] [address] Tan Oliveros Epithelial cells LM Ql (Urine sed) NONE SEEN Normal NONE SEEN /RARE [facility] Comment on above: Performed By: #### C K, HSTROPN, CMP, BNP #### [facility] [address] [address] [address] Tan Oliveros MUCOUS NONE SEEN Normal NONE SEEN [facility] Comment on above: Performed By: #### C K, HSTROPN, CMP, BNP #### [facility] [address] [place] [address] Dr. Tan Oliveros RBC (U) [#/Vol] /uL Abnormal 0-2 [facility] Comment on above: Performed By: #### C K, HSTROPN, CMP, BNP #### [facility] [address] [address] [address] Tan Oliveros WBC 0-2 Abnormal NONE SEEN [facility] Comment on above: Performed By: #### C K, HSTROPN, CMP, BNP #### [facility] [address] [address] [address] Tan Oliveros INSULINon 09-27-2022 Insulin 13.4 uIU/mL Normal 2.6-24.9 [facility] Comment on above: Performed By: #### C K, HSTROPN, CMP, BNP #### [facility] [address] [address] [address] Tan Oliveros BNPon 09-26-2022 Natriuretic peptide B (Bld) [Mass/Vol] 715.0 pg/mL Normal <=1,800.0 [facility] Comment on above: Performed By: #### C K, HSTROPN, CMP, BNP #### [facility] [address] [place] [address] Dr. Tan Oliveros CBC AUTO DIFFon 09-26-2022 BASO # 0.0 103/ul Normal 0.0-0.1 [facility] Comment on above: Performed By: #### C K, HSTROPN, CMP, BNP #### [facility] [address] [place] [address] Dr. Tan Oliveros Basophils/100 WBC (Bld) 0.7 % Normal 0.2-2.0 [facility] Comment on above: Performed By: #### C K, HSTROPN, CMP, BNP #### [facility] [address] [place] [address] Dr. Tan Olivreos EO # 0.1 103/ul Normal 0.0-0.7 [facility] Comment on above: Performed By: #### C K, HSTROPN, CMP, BNP #### [facility] [address] [place] [address] Dr. Tan Oliveros Eosinophils/100 WBC (Bld) 2.1 % Normal 0.9-7.0 [facility] Comment on above: Performed By: #### C K, HSTROPN, CMP, BNP #### [facility] [address] [place] [address] Dr. Tan Oliveros Erythrocyte distribution width (RBC) [Ratio] 15.9 % Critically high 11.0-15.0 [facility] Comment on above: Performed By: #### C K, HSTROPN, CMP, BNP #### [facility] [address] [place] [address] Dr. Tan Oliveros Hematocrit (Bld) [Volume fraction] 45.1 % Normal 42.0-54.0 [facility] Comment on above: Performed By: #### C K, HSTROPN, CMP, BNP #### [facility] [address] [place] [address] Dr. Tan Oliveros Hemoglobin (Bld) [Mass/Vol] 14.1 g/dL Normal 14.0-18.0 [facility] Comment on above: Performed By: #### C K, HSTROPN, CMP, BNP #### [facility] [address] [place] [address] Dr. Tan Oliveros IG # 0.02 10e3/ul Normal 0.00-0.03 [facility] Comment on above: Performed By: #### C K, HSTROPN, CMP, BNP #### [facility] [address] [place] [address] Dr. Tan Oliveros IG % 0.3 % Normal 0.0-0.5 [facility] Comment on above: Performed By: #### C K, HSTROPN, CMP, BNP #### [facility] [address] [place] [address] Dr. Tan Oliveros LYMPH # 0.7 103/ul Critically low 1.2-3.8 [facility] Comment on above: Performed By: #### C K, HSTROPN, CMP, BNP #### [facility] [address] [place] [address] Dr. Tan Oliveros Lymphocytes/100 WBC (Bld) 12.4 % Critically low 20.5-60.0 [facility] Comment on above: Performed By: #### C K, HSTROPN, CMP, BNP #### [facility] [address] [place] [address] Dr. Tan Oliveros MANUAL DIFF REQ NO Normal [facility] Comment on above: Performed By: #### C K, HSTROPN, CMP, BNP #### [facility] [address] [place] [address] Dr. Tan Oliveros MCH (RBC) [Entitic mass] 23.7 pg Critically low 25.9-34.0 [facility] Comment on above: Performed By: #### C K, HSTROPN, CMP, BNP #### [facility] [address] [place] [address] Dr. Tan Oliveros MCHC (RBC) [Mass/Vol] 31.3 g/dL Normal 29.9-35.2 [facility] Comment on above: Performed By: #### C K, HSTROPN, CMP, BNP #### [facility] [address] [place] [address] Dr. Tan Oliveros MCV (RBC) [Entitic vol] 75.7 fL Critically low 80.0-94.0 [facility] Comment on above: Performed By: #### C K, HSTROPN, CMP, BNP #### [facility] [address] [place] [address] Dr. Tan Oliveros MONO # 0.4 103/ul Normal 0.3-0.8 [facility] Comment on above: Performed By: #### C K, HSTROPN, CMP, BNP #### [facility] [address] [place] [address] Dr. Tan Oliveros Monocytes/100 WBC (Bld) 6.8 % Normal 1.7-12.0 [facility] Comment on above: Performed By: #### C K, HSTROPN, CMP, BNP #### [facility] [address] [place] [address] Dr. Tan Oliveros NEUT # 4.5 103/ul Normal 1.4-6.5 [facility] Comment on above: Performed By: #### C K, HSTROPN, CMP, BNP #### [facility] [address] [place] [address] Dr. Tan Oliveros Neutrophils/100 WBC (Bld) 77.7 % Critically high 43.0-75.0 [facility] Comment on above: Performed By: #### C K, HSTROPN, CMP, BNP #### [facility] [address] [place] [address] Dr. Tan Oliveros Platelet mean volume (Bld) [Entitic vol] 9.3 fL Critically low 9.5-13.5 [facility] Comment on above: Performed By: #### C K, HSTROPN, CMP, BNP #### [facility] [address] [place] [address] Dr. Tan Oliveros PLT 205 103/ul Normal 150-450 [facility] Comment on above: Performed By: #### C K, HSTROPN, CMP, BNP #### [facility] [address] [place], [place] [id number] Dr. Tan Oliveros RBC 5.96 106/ul Normal 4.70-6.10 [facility] Comment on above: Performed By: #### C K, HSTROPN, CMP, BNP #### [facility] [address] [place] [address] Dr. Tan Oliveros WBC 5.7 103/ul Normal 4.0-11.0 [facility] Comment on above: Performed By: #### C K, HSTROPN, CMP, BNP #### [facility] [address] [place] [address] Dr. Tan Oliveros FREE THYROXINE INDEX T7on FTI 2.34 Normal 1.30-4.50 [facility] Comment on above: Performed By: #### C K, HSTROPN, CMP, BNP #### [facility] [address] [place] [address] Dr. Tan Oliveros T3U 36.0 % Normal 33.0-40.0 [facility] Comment on above: Performed By: #### C K, HSTROPN, CMP, BNP #### [facility] [address] [place] [address] Dr. Tan Oliveros T4 [Mass/Vol] 6.50 ug/dL Normal 4.50-12.10 [facility] Comment on above: Performed By: #### C K, HSTROPN, CMP, BNP #### [facility] [address] [place] [address] Dr. Tan Oliveros GLYCOHEMOGLOBIN A1Con 2021 ADA RECOMMENDATION SEE BELOW Normal [facility] Comment on above: Result Comment: ADA RECOMMENDED LIMIT 4.0 - 6.0 ADA THERAPEUTIC TARGET < 7.0 ACTION SUGGESTED > 7.0 Performed By: #### C K, HSTROPN, CMP, BNP #### [facility] [address] [place] [address] Dr. Tan Oliveros Glucose [Mass/Vol] 114 mg/dL Normal [facility] Comment on above: Performed By: #### C K, HSTROPN, CMP, BNP #### [facility] [address] [address] [address] Tan Oliveros HbA1c (Bld) [Mass fraction] 5.6 % Normal 4.5-6.2 [facility] Comment on above: Performed By: #### C K, HSTROPN, CMP, BNP #### [facility] [address] [address] [address] Tan Oliveros IRONon 09-26-2022 Iron [Mass/Vol] 40.0 ug/dL Critically low 65.0-175.0 [facility] Comment on above: Performed By: #### I LASHAE, PSASC, VITAD #### [facility] [address] [address] [address] Tan Oliveros LIPID PROFILEon 09-26-2022 CHOL-HDL RATIO NORM SEE BELOW Normal [facility] Comment on above: Result Comment: 3.3 - 4.4 LOW RISK 4.4 - 7.1 AVERAGE RISK 7.1 - 11.0 MODERATE RISK >11.0 HIGH RISK Performed By: #### B SCANNER SUPERVISOR, T7, CMP, TSH, LIPID #### [facility] [address] [address] [address] Tan Oliveros Cholesterol [Mass/Vol] 159 mg/dL Normal <=200 [facility] Comment on above: Performed By: #### B SCANNER SUPERVISOR, T7, CMP, TSH, LIPID #### [facility] [address] [address] [address] Tan Oliveros Cholesterol in HDL [Mass/Vol] 66 mg/dL Critically high 40-60 [facility] Comment on above: Performed By: #### B SCANNER SUPERVISOR, T7, CMP, TSH, LIPID #### [facility] [address] [address] [address] Tan Oliveros Cholesterol in LDL [Mass/Vol] 82.4 mg/dL Normal [facility] Comment on above: Performed By: #### B SCANNER SUPERVISOR, T7, CMP, TSH, LIPID #### [facility] [address] [place] [address] Dr. Tan Oliveros Cholesterol.total/C holesterol in HDL [Mass ratio] 2.4 {ratio} Normal [facility] Comment on above: Performed By: #### B SCANNER SUPERVISOR, T7, CMP, TSH, LIPID #### [facility] [address] [address] [address] Tan Oliveros HDL NORMAL > or = 60 mg/dl - LO W CARDIOVASCULAR RISK <40 mg/dl - HIGH CARDIOVASCULAR RISK Normal [facility] Comment on above: Performed By: #### B SCANNER SUPERVISOR, T7, CMP, TSH, LIPID #### [facility] [address] [address] [address] Tan Oliveros LDL CALC NORMAL SEE BELOW Normal [facility] Comment on above: Result Comment: <100 mg/dl OPTIMAL 100 - 129 mg/dl NEAR OR ABOVE OPTIMAL 130 - 159 mg/dl BORDERLINE HIGH 160 - 189 mg/dl HIGH >190 mg/dl VERY HIGH Performed By: #### B SCANNER SUPERVISOR, T7, CMP, TSH, LIPID #### [facility] [address] [place] [address] Dr. Tan Oliveros Triglyceride [Mass/Vol] 53 mg/dL Normal <=150 [facility] Comment on above: Performed By: #### B SCANNER SUPERVISOR, T7, CMP, TSH, LIPID #### [facility] [address] [place] [address] Dr. Tan Oliveros VLDL CALC 10.6 mg/dL Normal [facility] Comment on above: Performed By: #### B SCANNER SUPERVISOR, T7, CMP, TSH, LIPID #### [facility] [address] [place] [address] Dr. Tan Oliveros PROF 14(COMP METB)on 022 Albumin [Mass/Vol] 3.9 g/dL Normal 3.4-5.0 [facility] Comment on above: Performed By: #### C K, HSTROPN, CMP, BNP #### [facility] [address] [place] [address] Dr. Tan Oliveros Albumin/Globulin [Mass ratio] 1.2 {ratio} Normal [facility] Comment on above: Performed By: #### C K, HSTROPN, CMP, BNP #### [facility] [address] [place] [address] Dr. Tan Oliveros ALP [Catalytic activity/Vol] 94 U/L Normal 46-116 [facility] Comment on above: Performed By: #### C K, HSTROPN, CMP, BNP #### [facility] [address] [address] [address] Tan Oliveros ALT [Catalytic activity/Vol] 17 U/L Normal 16-63 [facility] Comment on above: Performed By: #### C K, HSTROPN, CMP, BNP #### [facility] [address] [address] [address] Tan Oliveros Anion gap [Moles/Vol] 12.9 mmol/L Normal [facility] Comment on above: Performed By: #### C K, HSTROPN, CMP, BNP #### [facility] [address] [place] [address] Dr. Tan Oliveros AST [Catalytic activity/Vol] 20 U/L Normal 15-37 [facility] Comment on above: Performed By: #### C K, HSTROPN, CMP, BNP #### [facility] [address] [place] [address] Dr. Tan Oliveros Bilirubin [Mass/Vol] 0.4 mg/dL Normal 0.2-1.0 [facility] Comment on above: Performed By: #### C K, HSTROPN, CMP, BNP #### [facility] [address] [place] [address] Dr. Tan Oliveros Calcium [Mass/Vol] 9.1 mg/dL Normal 8.5-10.1 [facility] Comment on above: Performed By: #### C K, HSTROPN, CMP, BNP #### [facility] [address] [place] [address] Dr. Tan Oliveros Chloride [Moles/Vol] 106 mmol/L Normal 98-107 [facility] Comment on above: Performed By: #### C K, HSTROPN, CMP, BNP #### [facility] [address] [place] [address] Dr. Tan Oliveros CO2 [Moles/Vol] 29.1 mmol/L Normal 21.0-32.0 [facility] Comment on above: Performed By: #### C K, HSTROPN, CMP, BNP #### [facility] [address] [place] [address] Dr. Tan Oliveros Creatinine [Mass/Vol] 1.98 mg/dL Critically high 0.70-1.30 [facility] Comment on above: Performed By: #### C K, HSTROPN, CMP, BNP #### [facility] [address] [place] [address] Dr. Tan Oliveros EGFR-AF MALAYSIAN 39 mL/min/1.73m2 Critically low >=60 [facility] Comment on above: Performed By: #### C K, HSTROPN, CMP, BNP #### [facility] [address] [place] [address] Dr. Tan Oliveros EGFR-NON AF MALAYSIAN 32 mL/min/1.73m2 Critically low >=60 [facility] Comment on above: Performed By: #### C K, HSTROPN, CMP, BNP #### [facility] [address] [place] [address] Dr. Tan Oliveros Globulin (S) [Mass/Vol] 3.3 g/dL Normal [facility] Comment on above: Performed By: #### C K, HSTROPN, CMP, BNP #### [facility] [address] [place] [address] Dr. Tan Oliveros Glucose [Mass/Vol] 108 mg/dL Critically high 74-106 T [facility] Comment on above: Performed By: #### C K, HSTROPN, CMP, BNP #### [facility] [address] [place] [address] Dr. Tan Oliveros Potassium [Moles/Vol] 4.0 mmol/L Normal 3.5-5.1 [facility] Comment on above: Performed By: #### C K, HSTROPN, CMP, BNP #### [facility] [address] [place] [address] Dr. Tan Oliveros Protein [Mass/Vol] 7.2 g/dL Normal 6.4-8.2 [facility] Comment on above: Performed By: #### C K, HSTROPN, CMP, BNP #### [facility] [address] [place] [address] Dr. Tan Oliveros Sodium [Moles/Vol] 144 mmol/L Normal 136-145 [facility] Comment on above: Performed By: #### C K, HSTROPN, CMP, BNP #### [facility] [address] [place] [address] Dr. Tan Oliveros Urea nitrogen [Mass/Vol] 43.0 mg/dL Critically high 7.0-18.0 [facility] Comment on above: Performed By: #### Emir Wagner, HSTROPN CMP, BNP #### [facility] [address] [place] [address] Dr. Tan Oliveros Urea nitrogen/Creatinine [Mass ratio] 21.7 mg/mg Normal [facility] Comment on above: Performed By: #### Emir Wagner, HSTROPN, CMP, BNP #### [facility] [address] [place] [address] Dr. Tan Oliveros TSHon 09-26-2022 TSH 2.331 uIU/mL Normal 0.358-3.740 [facility] Comment on above: Performed By: #### Emir Wagner, HSTROPN CMP, BNP #### [facility] [address] [place] [address] Dr. Tan Oliveros VITAMIN D 25 OHon 09-26-2022 VIT D 25-OH 40.9 ng/mL Normal [facility] Comment on above: Performed By: #### I MARY BHARDWAJ, VITAD #### [facility] [address] [place] [address] Dr. Tan Oliveros VIT D RANGES SEE BELOW Normal [facility] Comment on above: Result Comment: <20 ng/mL Vit D deficient 20 - <30 ng/mL Vit D insufficient 30 - 100 ng/mL Vit D sufficient >100 ng/mL Potential Toxicity Performed By: #### I DEANDRE BHARDWAJSC, VITAD #### [facility] [address] [place] [address] Dr. Tan Oliveros URINALYSIS, REFLEX MICROSCOP ICon 09-12-2022 Bilirubin Ql (U) Negative Negative [facility] Clarity (Unsp spec) Cloudy Abnormal Clear [facility] Color (U) Light [place] Abnormal Yellow [facility] Glucose Test strip (U) [Mass/Vol] 4+ Abnormal Negative [facility] Hemoglobin Ql (U) 3+ Abnormal Negative [facility] Hyaline casts (Urine sed) [#/Area] 1-3 /LPF Abnormal 0 /LPF [facility] Ketones Ql (U) Negative Negative [facility] Leukocyte esterase Test strip Ql (U) Negative Negative [facility] Nitrite Ql (U) Negative Negative [facility] pH (U) 5.5 [pH] 5.0 - 8.0 [facility] Protein (U) [Mass/Vol] 1+ Abnormal Negative [facility] RBC LM.HPF (Urine sed) [#/Area] /[HPF] Abnormal 0-3 /HPF [facility] Specific gravity (U) [Rel density] 1.019 1.005 - 1.030 [facility] Urobilinogen Ql (U) Negative Negative [facility] WBC LM.HPF (Urine sed) [#/Area] 0-5 /HPF 0-5 /HPF [facility] URINE CULTUREon 03-17-2022 Bacteria identified Cx Nom (U) No growth (<1,000 CFU/ml) [facility] TYPE AND SCREEN,30 DAYon ABO O [facility] HIstorical Ab Scr Status Negative [facility] Rh Nom (Bld) Positive [facility] CT UROGRAM WO/W IVCONon 09-2 [facility] Dipstick and Microscopicon 0 02-23-2019 Appearance Nom (U) Cloudy Critically abnormal Clear [facility] Comment on above: Order Comment: Name Collection Type:: Clean-Voided Midstream Performed By: #### A DDONUAPLUS, CUU #### [facility] [address] [place] [address] [place] Bacteria LM.HPF #/area (Urine sed) None Seen Normal None Seen [facility] Comment on above: Order Comment: Name Collection Type:: Clean-Voided Midstream Performed By: #### A DDONUAPLUS, CUU #### [facility] [address] [place] [address] [place] Bilirubin,Urine Negative Normal Negative [facility] Comment on above: Order Comment: Name Collection Type:: Clean-Voided Midstream Performed By: #### A DDONUAPLUS, CUU #### [facility] [address] [place] [address] Color Nom (U) Yellow Normal Yellow [facility] Comment on above: Order Comment: Name Collection Type:: Clean-Voided Midstream Performed By: #### A DDONUAPLUS, CUU #### [address] Glucose Ql (U) Normal Normal Normal [facility] Comment on above: Order Comment: Name Collection Type:: Clean-Voided Midstream Performed By: #### A DDONUAPLUS, CUU #### [address] Hyaline Casts,Urine 0-8 Normal 0-8 [facility] Comment on above: Order Comment: Name Collection Type:: Clean-Voided Midstream Result Comment: PERF ORMED BY: [place] [address] PATHOLOGIST PHOTOLITHOGRAPHIC STRIPPER LEONARD MCCLAIN M.D. Performed By: #### A DDONUAPLUS, CUU #### [address] Ketones Ql (U) Negative Normal Negative [facility] Comment on above: Order Comment: Name Collection Type:: Clean-Voided Midstream Performed By: #### A DDONUAPLUS, CUU #### [facility] [address] [place] [address] Leukocyte esterase Test strip Ql (U) 4+ High Negative [facility] Comment on above: Order Comment: Name Collection Type:: Clean-Voided Midstream Performed By: #### A DDONUAPLUS, CUU #### [place] [address] [place] Nitrite,Urine Negative Normal Negative [facility] Comment on above: Order Comment: Name Collection Type:: Clean-Voided Midstream Performed By: #### A DDONUAPLUS, CUU #### [address] Occult Blood,Urine 3+ High Negative [facility] Comment on above: Order Comment: Name Collection Type:: Clean-Voided Midstream Result Comment: PERF ORMED BY: [place] [address] PATHOLOGIST PHOTOLITHOGRAPHIC STRIPPER LEONARD MCCLAIN M.D. Performed By: #### A DDONUAPLUS, CUU #### [address] pH (U) 7.0 [pH] Normal 5.0-9.0 [facility] Comment on above: Order Comment: Name Collection Type:: Clean-Voided Midstream Performed By: #### A DDONUAPLUS, CUU #### [address] Protein mass conc (U) 30 mg/dL High Negative [facility] Comment on above: Order Comment: Name Collection Type:: Clean-Voided Midstream Performed By: #### A DDONUAPLUS, CUU #### [address] RBC LM.HPF #/area (Urine sed) Innumerable High 0-4 [facility] Comment on above: Order Comment: Name Collection Type:: Clean-Voided Midstream Performed By: #### A DDONUAPLUS, CUU #### [address] Specificy [place],Urine 1.013 Normal 1.001-1.030 [facility] Comment on above: Order Comment: Name Collection Type:: Clean-Voided Midstream Performed By: #### A DDONUAPLUS, CUU #### [address] Squamous Epithelial Cell,Urine None Seen Normal 0-2 [facility] Comment on above: Order Comment: Name Collection Type:: Clean-Voided Midstream Performed By: #### A DDONUAPLUS, CUU #### [address] [place] [address] [place] Urobilinogen,Urine Normal Normal Normal [facility] Comment on above: Order Comment: Name Collection Type:: Clean-Voided Midstream Performed By: #### A DDONUAPLUS, CUU #### [facility] [address] WBC LM.HPF #/area (Urine sed) Innumerable High 0-4 [facility] Comment on above: Order Comment: Name Collection Type:: Clean-Voided Midstream Performed By: #### A DDONUAPLUS, CUU #### [facility] [address] Taj 02-23-2019 L -- ---- Specimen: [id number] Received: 02/23/19 Status: MALCOLM Abramsjak Num: [id number] Spec Type: Cytology Subm Dr: Jian Rodriguez MD Tissues: A CYTOSLIDE (URINE) Procedures: Pap Stain/2 ---- Patient Age/Sex Location Account Attending Physician ---- Juan Jose Austin 78/M [place] [id number] Jian Rodriguez MD ---- SPEC NUM: [id number] RECD: 02/23/19 STATUS: MALCOLM MENDEZ NUM: [id number] ALEKSANDR: 02/23/[address] [facility] [address]: Jian Rodriguez MD ENTERED: 02/23/[address] [facility] [address]: FARRAH TYPE: Cytology DEPT: CNG ORDERED: Pap Stain/2 ORDERED: Pap Stain/2 Pathological [...] prepared with Papanicolaou stain for routine examination. (SHYLA/eliu) Microscopic One Papanicolaou stained Thin Prep slide is examined. Microscopic examination supports the pathologic diagnosis. [id number] ---- ---- Specimen: [id number] Received: 02/23/19 Status: MALCOLM Mendez Num: [id number] Spec Type: Cytology Subm Dr: Jian Rodriguez MD Tissues: A CYTOSLIDE (URINE) Procedures: Pap Stain/2 ---- Patient: Juan Jose Austin Sr [id number] (Continued) ---- Signed (signature on file) Julio Cesar Carr MD 02/24/19 1700 [facility] Urine Cultureon 02-23-2019 Bacteria identified Cx Nom (U) ORGANISM: Pseudomonas aeruginosa (O:PSEAER) [place] Count >100,000 100,000 CFU/ML OTHER MIXED BACTERIAL SKIN CONTAMINANTS Aerobic ADONAY Charge (Neg) --- SUSCEPTIBILITY -- ORGANISM: O:PSEAER ANTIBIOTIC INTERPRETATION ADONAY Amikacin S <16 Aztreonam IB <8 Cefepime S <8 Ceftazidime IB 4 Ciprofloxacin S <1 Gentamicin I 8 Levofloxacin S <2 Meropenem S <4 Piperacillin/Tazobacta m IB <16 Tobramycin S <4 S = [...] RESISTANT TO ALL B-LACTAM DRUGS. PERFORMED BY: [place] [id number] PATHOLOGIST PHOTOLITHOGRAPHIC STRIPPER LEONARD MCCLAIN M.D. [facility] Comment on above: Performed By: #### A DDSEDAUAHANG, U #### [address] [id number] [facility] Vital Signs Date Time Vital Sign Value Performing Clinician Facility 12-20-2023 13:09-0500 Body height 162.6 cm Wayne Chavez APRN.CNP Work Phone: [facility] 12-20-2023 13:09-0500 Body temperature 97.2 [degF] Wayne Chavez APRN.ROOFER METAL Work Phone: [facility] 12-20-2023 13:09-0500 Body weight 63.1 kg Wayne Chavez APRN.ROOFER METAL Work Phone: [facility] 12-20-2023 13:09-0500 Diastolic blood pressure 49 mm[Hg] Wayne Chavez APRN.ROOFER METAL Work Phone: [facility] 12-20-2023 13:09-0500 Heart rate 66 /min Wayne Chavez APRN.ROOFER METAL Work Phone: [facility] 12-20-2023 13:09-0500 Respiratory rate 16 /min Wayne Chavez APRN.ROOFER METAL Work Phone: [facility] 12-20-2023 13:09-0500 SaO2% (BldA) [Mass fraction] 97 % Wayne Chavez APRN.ROOFER METAL Work Phone: [facility] 12-20-2023 13:09-0500 Systolic blood pressure 119 mm[Hg] Wayne Chavez APRN.ROOFER METAL Work Phone: [facility] 11-29-2023 12:51-0500 Body height 162.6 cm Caesar Vazquez MD Work Phone: [facility] 11-29-2023 12:51-0500 Body temperature 98.01 [degF] Caesar Vazquez MD Work Phone: [facility] 11-29-2023 12:51-0500 Body weight 67.9 kg Caesar Vazquez MD Work Phone: [facility] 11-29-2023 12:51-0500 Diastolic blood pressure 50 mm[Hg] Caesar Vazquez MD Work Phone: [facility] 11-29-2023 12:51-0500 Heart rate 71 /min Caesar Vazquez MD Work Phone: [facility] 11-29-2023 12:51-0500 Respiratory rate 16 /min Caesar Vazquez MD Work Phone: [facility] 11-29-2023 12:51-0500 SaO2% (BldA) [Mass fraction] 98 % Caesar Vazquez MD Work Phone: [facility] 11-29-2023 12:51-0500 Systolic blood pressure 100 mm[Hg] Caesar Vazquez MD Work Phone: [facility] 09-19-2023 14:50-0500 Diastolic blood pressure 62 mm[Hg] Chair Cristel Work Phone: [facility] 09-19-2023 14:50-0500 Systolic blood pressure 114 mm[Hg] Chair Cristel Work Phone: [facility] 08-29-2023 12:37-0500 Body height 162.6 cm Caesar Vazquez MD Work Phone: [facility] 08-29-2023 12:37-0500 Body temperature 97.5 [degF] Caesar Vazquez MD Work Phone: [facility] 08-29-2023 12:37-0500 Body weight 75.75 kg Caesar Vazquez MD Work Phone: [facility] 08-29-2023 12:37-0500 Diastolic blood pressure 58 mm[Hg] Caesar Vaqzuez MD Work Phone: [facility] 08-29-2023 12:37-0500 Heart rate 60 /min Caesar Vazquez MD Work Phone: [facility] 08-29-2023 12:37-0500 Respiratory rate 18 /min Caesar Vazquez MD Work Phone: [facility] 08-29-2023 12:37-0500 SaO2% (BldA) [Mass fraction] 97 % Caesar Vazquez MD Work Phone: [facility] 08-29-2023 12:37-0500 Systolic blood pressure 124 mm[Hg] Caesar Vazquez MD Work Phone: [facility] 07-18-2023 13:14-0400 Body height 162.6 cm Caesra Vazquez MD Work Phone: [facility] 07-18-2023 13:14-0400 Body temperature 97.59 [degF] Caesar Vazquez MD Work Phone: [facility] 07-18-2023 13:14-0400 Body weight 80.74 kg Caesar Vazquez MD Work Phone: [facility] 07-18-2023 13:14-0400 Diastolic blood pressure 52 mm[Hg] Caesar Vazquez MD Work Phone: [facility] 07-18-2023 13:14-0400 Heart rate 61 /min Caesar Vazquez MD Work Phone: [facility] 07-18-2023 13:14-0400 Respiratory rate 18 /min Caesar Vazquez MD Work Phone: [facility] 07-18-2023 13:14-0400 SaO2% (BldA) [Mass fraction] 96 % Caesar Vazquez MD Work Phone: [facility] 07-18-2023 13:14-0400 Systolic blood pressure 129 mm[Hg] Caesar Vazquez MD Work Phone: [facility] 06-27-2023 13:02-0400 Body height 162.6 cm Wayne Chavez DIGITAL BUSINESS ANALYST.[employer] Work Phone: [facility] 06-27-2023 13:02-0400 Body temperature 97 [degF] Wayne Chavez DIGITAL BUSINESS ANALYST.[employer] Work Phone: [facility] 06-27-2023 13:02-0400 Body weight 81.19 kg Wayne Chavez DIGITAL BUSINESS ANALYST.[employer] Work Phone: [facility] 06-27-2023 13:02-0400 Diastolic blood pressure 56 mm[Hg] Wayne Chavez DIGITAL BUSINESS ANALYST.[employer] Work Phone: [facility] 06-27-2023 13:02-0400 Heart rate 61 /min Wayne Chavez DIGITAL BUSINESS ANALYST.[employer] Work Phone: [facility] 06-27-2023 13:02-0400 Respiratory rate 16 /min Wayne Chavez DIGITAL BUSINESS ANALYST.[employer] Work Phone: [facility] 06-27-2023 13:02-0400 SaO2% (BldA) [Mass fraction] 99 % Wayne Chavez DIGITAL BUSINESS ANALYST.[employer] Work Phone: [facility] 06-27-2023 13:02-0400 Systolic blood pressure 122 mm[Hg] Wayne Chavez DIGITAL BUSINESS ANALYST.[employer] Work Phone: [facility] 06-06-2023 13:31-0400 Body height 162.6 cm Caesar Vazquez MD Work Phone: [facility] 06-06-2023 13:31-0400 Body temperature 97.81 [degF] Caesar Vazquez MD Work Phone: [facility] 06-06-2023 13:31-0400 Body weight 80.47 kg Caesar Vazquez MD Work Phone: [facility] 06-06-2023 13:31-0400 Diastolic blood pressure 63 mm[Hg] Caesar Vazquez MD Work Phone: [facility] 06-06-2023 13:31-0400 Heart rate 60 /min Caesar Vazquez MD Work Phone: [facility] 06-06-2023 13:31-0400 Respiratory rate 16 /min Caesar Vazquez MD Work Phone: [facility] 06-06-2023 13:31-0400 SaO2% (BldA) [Mass fraction] 99 % Caesar Vazquez MD Work Phone: [facility] 06-06-2023 13:31-0400 Systolic blood pressure 131 mm[Hg] Caesar Vazquez MD Work Phone: [facility] 05-16-2023 13:02-0400 Body height 162.6 cm Caesar Vazquez MD Work Phone: [facility] 05-16-2023 13:02-0400 Body temperature 97.81 [degF] Caesar Vazquez MD Work Phone: [facility] 05-16-2023 13:02-0400 Body weight 80.65 kg Caesar Vazquez MD Work Phone: [facility] 05-16-2023 13:02-0400 Diastolic blood pressure 55 mm[Hg] Caesar Vazquez MD Work Phone: [facility] 05-16-2023 13:02-0400 Heart rate 62 /min Caesar Vazquez MD Work Phone: [facility] 05-16-2023 13:02-0400 Respiratory rate 18 /min Caesar Vazquez MD Work Phone: [facility] 05-16-2023 13:02-0400 SaO2% (BldA) [Mass fraction] 100 % Caesar Vazquez MD Work Phone: [facility] 05-16-2023 13:02-0400 Systolic blood pressure 116 mm[Hg] Caesar Vazquez MD Work Phone: [facility] 04-25-2023 12:54-0400 Body height 162.6 cm Wayne Chavez APRN.[employer] Work Phone: [facility] 04-25-2023 12:54-0400 Body temperature 97.39 [degF] Wayne Chavez APRN.[employer] Work Phone: [facility] 04-25-2023 12:54-0400 Body weight 80.74 kg Wayne Chavez APRN.[employer] Work Phone: [facility] 04-25-2023 12:54-0400 Diastolic blood pressure 61 mm[Hg] Wayne Chavez APRN.[employer] Work Phone: [facility] 04-25-2023 12:54-0400 Heart rate 66 /min Wayne Chavez APRN.[employer] Work Phone: [facility] 04-25-2023 12:54-0400 Respiratory rate 16 /min Wayne Chavez APRN.[employer] Work Phone: [facility] 04-25-2023 12:54-0400 SaO2% (BldA) [Mass fraction] 97 % Wayne Chavez APRN.[employer] Work Phone: [facility] 04-25-2023 12:54-0400 Systolic blood pressure 140 mm[Hg] Wayne Chavez APRN.[employer] Work Phone: [facility] 04-04-2023 10:25-0400 Body height 162.6 cm Wayne Chavez APRN.[employer] Work Phone: [facility] 04-04-2023 10:25-0400 Body temperature 97.7 [degF] Wayne Chavez APRN.[employer] Work Phone: [facility] 04-04-2023 10:25-0400 Body weight 80.29 kg Wayne Chavez APRN.[employer] Work Phone: [facility] 04-04-2023 10:25-0400 Diastolic blood pressure 62 mm[Hg] Wayne Chavez APRN.[employer] Work Phone: [facility] 04-04-2023 10:25-0400 Heart rate 67 /min Wayne Chavez APRN.[employer] Work Phone: [facility] 04-04-2023 10:25-0400 Respiratory rate 16 /min Wayne Chavez APRN.[employer] Work Phone: [facility] 04-04-2023 10:25-0400 SaO2% (BldA) [Mass fraction] 97 % Wayne Chavez APRN.[employer] Work Phone: [facility] 04-04-2023 10:25-0400 Systolic blood pressure 139 mm[Hg] Wayne Chavez APRN.[employer] Work Phone: [facility] 03-12-2023 10:00-0400 Body weight 82.56 kg Shawn Nelson Other [employer] Other 03-12-2023 10:00-0400 Diastolic blood pressure 74 mm[Hg] Shawn Nelson Other [employer] Other 03-12-2023 10:00-0400 Systolic blood pressure 128 mm[Hg] Shawn Nelson Other [employer] Other 01-31-2023 08:17-0400 Body height 162.6 cm Ceasar Vazquez MD Work Phone: [facility] 01-31-2023 08:17-0400 Body temperature 97.5 [degF] Caesar Vazquez MD Work Phone: [facility] 01-31-2023 08:17-0400 Body weight 82.19 kg Caesar Vazquez MD Work Phone: [facility] 01-31-2023 08:17-0400 Diastolic blood pressure 59 mm[Hg] Caesar Vazquez MD Work Phone: [facility] 01-31-2023 08:17-0400 Heart rate 59 /min Caesar Vazquez MD Work Phone: [facility] 01-31-2023 08:17-0400 Respiratory rate 16 /min Caesar Vazquez MD Work Phone: [facility] 01-31-2023 08:17-0400 SaO2% (BldA) [Mass fraction] 97 % Caesar Vazquez MD Work Phone: [facility] 01-31-2023 08:17-0400 Systolic blood pressure 142 mm[Hg] Caesar Vazquez MD Work Phone: [facility] 01-02-2023 14:58-0400 Body height 167.6 cm Caesar Vazquez MD Work Phone: [facility] 01-02-2023 14:58-0400 Body temperature 97.3 [degF] Caesar Vazquez MD Work Phone: [facility] 01-02-2023 14:58-0400 Body weight 80.2 kg Caesar Vazquez MD Work Phone: [facility] 01-02-2023 14:58-0400 Diastolic blood pressure 58 mm[Hg] Caesar Vazquez MD Work Phone: [facility] 01-02-2023 14:58-0400 Heart rate 63 /min Caesar Vazquez MD Work Phone: [facility] 01-02-2023 14:58-0400 Respiratory rate 16 /min Caesar Vazquez MD Work Phone: [facility] 01-02-2023 14:58-0400 SaO2% (BldA) [Mass fraction] 97 % Caesar Vazquez MD Work Phone: [facility] 01-02-2023 14:58-0400 Systolic blood pressure 133 mm[Hg] Caesar Vazquez MD Work Phone: [facility] 12-05-2022 09:20-0500 Blood Pressure Location Jian RODRIGUEZ [facility] 12-05-2022 09:20-0500 Diastolic blood pressure 70 mm[Hg] Jian RODRIGUEZ [facility] 12-05-2022 09:20-0500 Heart rate 59 /min Jian RODRIGUEZ [facility] 12-05-2022 09:20-0500 Systolic blood pressure 146 mm[Hg] Jian RODRIGUEZ [facility] 11-26-2022 08:40-0500 Body height 167.6 cm Caesar Vazquez MD Work Phone: [facility] 11-26-2022 08:40-0500 Body temperature 97.7 [degF] Caesar Vazquez MD Work Phone: [facility] 11-26-2022 08:40-0500 Body weight 77.47 kg Caesar Vazquez MD Work Phone: [facility] 11-26-2022 08:40-0500 Diastolic blood pressure 63 mm[Hg] Caesar Vazquez MD Work Phone: [facility] 11-26-2022 08:40-0500 Heart rate 60 /min Caesar Vazquez MD Work Phone: [facility] 11-26-2022 08:40-0500 Respiratory rate 16 /min Caesar Vazquez MD Work Phone: [facility] 11-26-2022 08:40-0500 SaO2% (BldA) [Mass fraction] 97 % Caesar Vazquez MD Work Phone: [facility] 11-26-2022 08:40-0500 Systolic blood pressure 131 mm[Hg] Caesar Vazquez MD Work Phone: [facility] 09-12-2022 14:05-0500 Body height 167.6 cm Nicholas Saenz MD Work Phone: [facility] 09-12-2022 14:05-0500 Body weight 78.93 kg Nicholas Saenz MD Work Phone: [facility] 09-12-2022 14:05-0500 Diastolic blood pressure 79 mm[Hg] Nicholas Saenz MD Work Phone: [facility] 09-12-2022 14:05-0500 Heart rate 79 /min Nicholas Saenz MD Work Phone: [facility] 09-12-2022 14:05-0500 Systolic blood pressure 168 mm[Hg] Nicholas Saenz MD Work Phone: [facility] 09-12-2022 10:56-0500 Diastolic blood pressure 72 mm[Hg] Pacc 4 Work Phone: [facility] 09-12-2022 10:56-0500 Systolic blood pressure 170 mm[Hg] Pacc 4 Work Phone: [facility] 09-12-2022 10:55-0500 Body height 167.6 cm Pacc 4 Work Phone: [facility] 09-12-2022 10:55-0500 Body temperature 98.29 [degF] Pacc 4 Work Phone: [facility] 09-12-2022 10:55-0500 Body weight 78.93 kg Pacc 4 Work Phone: [facility] 09-12-2022 10:55-0500 Heart rate 66 /min Pacc 4 Work Phone: [facility] 09-12-2022 10:55-0500 SaO2% (BldA) [Mass fraction] 96 % Pacc 4 Work Phone: [facility] 03-08-2022 11:15-0400 Body weight 81.65 kg Augusto Sauceda Other [facility] [employer] Other 03-05-2022 12:37-0400 Body height 163.6 cm Soren Perea MD Work Phone: [facility] 03-05-2022 12:37-0400 Body temperature 97.81 [degF] Soren Perea MD Work Phone: [facility] 03-05-2022 12:37-0400 Body weight 83.01 kg Soren Perea MD Work Phone: [facility] 03-05-2022 12:37-0400 Diastolic blood pressure 61 mm[Hg] Soren Perea MD Work Phone: [facility] 03-05-2022 12:37-0400 Heart rate 56 /min Soren Perea MD Work Phone: [facility] 03-05-2022 12:37-0400 Respiratory rate 16 /min Soren Perea MD Work Phone: [facility] 03-05-2022 12:37-0400 SaO2% (BldA) [Mass fraction] 97 % Soren Perea MD Work Phone: [facility] 03-05-2022 12:37-0400 Systolic blood pressure 141 mm[Hg] Soren Perea MD Work Phone: [facility] 02-19-2022 12:37-0400 Body height 163.6 cm Corazon Maxwell PA-C Work Phone: [facility] 02-19-2022 12:37-0400 Body temperature 97.59 [degF] Corazon Maxwell PA-C Work Phone: [facility] 02-19-2022 12:37-0400 Body weight 82.19 kg Corazon Alissa PA-C Work Phone: [facility] 02-19-2022 12:37-0400 Diastolic blood pressure 59 mm[Hg] Corazon Alissa PA-C Work Phone: [facility] 02-19-2022 12:37-0400 Heart rate 67 /min Corazon Alissa PA-C Work Phone: [facility] 02-19-2022 12:37-0400 Respiratory rate 18 /min Corazon Alissa PA-C Work Phone: [facility] 02-19-2022 12:37-0400 SaO2% (BldA) [Mass fraction] 100 % Corazon Alissa PA-C Work Phone: [facility] 02-19-2022 12:37-0400 Systolic blood pressure 127 mm[Hg] Corazon Alissa PA-C Work Phone: [facility] 02-12-2022 12:56-0400 Body height 163.6 cm Soren Perea MD Work Phone: [facility] 02-12-2022 12:56-0400 Body temperature 97.39 [degF] Soren Perea MD Work Phone: [facility] 02-12-2022 12:56-0400 Body weight 84.46 kg Soren Perea MD Work Phone: [facility] 02-12-2022 12:56-0400 Diastolic blood pressure 62 mm[Hg] Soren Perea MD Work Phone: [facility] 02-12-2022 12:56-0400 Heart rate 52 /min Soren Perea MD Work Phone: [facility] 02-12-2022 12:56-0400 Respiratory rate 18 /min Soren Perea MD Work Phone: [facility] 02-12-2022 12:56-0400 SaO2% (BldA) [Mass fraction] 99 % Soren Perea MD Work Phone: [facility] 02-12-2022 12:56-0400 Systolic blood pressure 149 mm[Hg] Soren Perea MD Work Phone: [facility] 02-05-2022 12:40-0400 Body height 163.6 cm Soren Perea MD Work Phone: [facility] 02-05-2022 12:40-0400 Body temperature 97.59 [degF] Soren Perea MD Work Phone: [facility] 02-05-2022 12:40-0400 Body weight 84.91 kg Soren Perea MD Work Phone: [facility] 02-05-2022 12:40-0400 Diastolic blood pressure 62 mm[Hg] Soren Perea MD Work Phone: [facility] 02-05-2022 12:40-0400 Heart rate 57 /min Soren Perea MD Work Phone: [facility] 02-05-2022 12:40-0400 Respiratory rate 18 /min Soren Perea MD Work Phone: [facility] 02-05-2022 12:40-0400 SaO2% (BldA) [Mass fraction] 100 % Soren Perea MD Work Phone: [facility] 02-05-2022 12:40-0400 Systolic blood pressure 154 mm[Hg] Soren Perea MD Work Phone: [facility] 01-15-2022 12:35-0400 Body height 163.6 cm Corazon Maxwell PA-C Work Phone: [facility] 01-15-2022 12:35-0400 Body temperature 98.1 [degF] Corazon Beller PA-C Work Phone: [facility] 01-15-2022 12:35-0400 Body weight 84.28 kg Corazon Maxwell PA-C Work Phone: [facility] 01-15-2022 12:35-0400 Diastolic blood pressure 63 mm[Hg] Corazon Alissa PA-C Work Phone: [facility] 01-15-2022 12:35-0400 Heart rate 63 /min Corazon Alissa PA-C Work Phone: [facility] 01-15-2022 12:35-0400 Respiratory rate 16 /min Corazon Alissa PA-C Work Phone: [facility] 01-15-2022 12:35-0400 SaO2% (BldA) [Mass fraction] 98 % Corazon Alissa PA-C Work Phone: [facility] 01-15-2022 12:35-0400 Systolic blood pressure 145 mm[Hg] Corazon Alissa PA-C Work Phone: [facility] 01-08-2022 09:09-0400 Body height 163.6 cm Soren Perea MD Work Phone: [facility] 01-08-2022 09:09-0400 Body temperature 97.11 [degF] Soren Perea MD Work Phone: [facility] 01-08-2022 09:09-0400 Body weight 83.55 kg Soren Perea MD Work Phone: [facility] 01-08-2022 09:09-0400 Diastolic blood pressure 80 mm[Hg] Soren Perea MD Work Phone: [facility] 01-08-2022 09:09-0400 Heart rate 62 /min Soren Perea MD Work Phone: [facility] 01-08-2022 09:09-0400 Respiratory rate 18 /min Soren Perea MD Work Phone: [facility] 01-08-2022 09:09-0400 SaO2% (BldA) [Mass fraction] 98 % Soren Perea MD Work Phone: [facility] 01-08-2022 09:09-0400 Systolic blood pressure 144 mm[Hg] Soren Perea MD Work Phone: [facility] Encounters Encounter Date Encounter Type Care Provider Facility Start: 12-24-2023 End: 12-24-20[facility] Start: 12-20-2023 End: 12-20-2023 ambulatory WAYNE CHAVEZ Facility:[facility] Start: 12-20-2023 End: 12-20-2023 ambulatory Wayne Chavez DIGITAL BUSINESS ANALYST.[employer] Work Phone: Hematology/Oncology Comment on above: 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); CKD (chronic kidney disease), stage V (HCC); Disorder of thyroid; Malaise and fatigue Start: 11-21-2023 Telephone encounter Margot galvin RN Work Phone: Hematology/Oncology Comment on above: Care Coordination (F ollow Up Appointment) Start: 11-14-2023 Telephone encounter Caesar garcía MD Work Phone: Cancer [facility] Start: 11-02-2023 End: 11-03-2023 Emergency department patient visit JAIMEE RHODES [facility] Start: 10-10-2023 End: 10-10-2023 ambulatory CAESAR JOANN Facility:[facility] Start: 10-10-2023 End: 10-10-2023 ambulatory YOAN SNEED Facility:[facility] Start: 09-19-2023 End: 09-20-2023 ambulatory Chair 14 Cristel Work Phone: Hematology/Oncology Comment on above: 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); Malignant neoplasm of right kidney, except renal pelvis (HCC); Malignant neoplasm of ureter, unspecified laterality (HCC) Start: 08-29-2023 End: 09-19-2023 [facility] Start: 08-29-2023 End: 08-29-2023 Office outpatient visit 25 minutes Caesar Vazquez MD Work Phone: Hematology/Oncology Comment on above: 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); Malignant neoplasm of right kidney, except renal pelvis (HCC); Malignant neoplasm of ureter, unspecified laterality (HCC) Start: 07-18-2023 End: 07-18-2023 Office outpatient visit 25 minutes Caesar Vazquez MD Work Phone: Hematology/Oncology Comment on above: 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) Start: 06-27-2023 End: 06-27-2023 ambulatory CAESAR VAZQUEZ Facility:[facility] Start: 06-27-2023 End: 06-27-2023 ambulatory Chair 13 Cristel Work Phone: Hematology/Oncology [...] Phone: [facility] Start: 06-18-2023 End: 06-19-2023 ambulatory RITA BHATT Facility:[facility] Start: 06-18-2023 End: 06-18-2023 ambulatory Rita Bhatt MD Work Phone: Urology Comment on above: Urothelial cancer (H CC) (Primary Dx) Start: 06-18-2023 End: 06-18-2023 Telemedicine consultation with patient Rita Bhatt MD Work Phone: [facility] Start: 06-06-2023 End: 06-06-2023 ambulatory Chair 15 Cristel Work Phone: Hematology/Oncology Comment on above: 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); Malignant neoplasm of right kidney, except renal pelvis (HCC); Malignant neoplasm of ureter, unspecified laterality (HCC) Start: 06-06-2023 End: 06-06-2023 Office outpatient visit 25 minutes Caesar Vazquez MD Work Phone: Hematology/Oncology Comment on above: 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); Malignant neoplasm of ureter, unspecified laterality (HCC); Disorder of thyroid Start: 05-31-2023 End: 05-31-2023 Refill Rita Bhatt MD Work Phone: Urology Comment on above: Refill Request Start: 05-16-2023 End: 05-16-2023 ambulatory Chair Anthony Fam Work Phone: Hematology/Oncology Comment on above: 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); Malignant neoplasm of right kidney, except renal pelvis (HCC); Malignant neoplasm of ureter, unspecified laterality (HCC) Start: 05-16-2023 End: 05-16-2023 Office outpatient visit 25 minutes Caesar Vazquez MD Work Phone: Hematology/Oncology Comment on above: 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) Start: 05-07-2023 End: 05-08-2023 ambulatory RITA BHATT Facility:[facility] Start: 05-07-2023 End: 05-07-2023 ambulatory Rita Bhatt MD Work Phone: Urology Comment on above: Malignant neoplasm o f urothelium (HCC) (Primary Dx) Start: 05-07-2023 End: 05-07-2023 Telemedicine consultation with patient Rita Bhatt MD Work Phone: [facility] Start: 04-26-2023 End: 04-29-2023 ambulatory [facility] Start: 04-25-2023 End: 04-25-2023 Orders Only Yoan [...] Start: 04-04-2023 End: 04-04-2023 ambulatory Wayne Chavez DIGITAL BUSINESS ANALYST.[employer] Work Phone: Hematology/Oncology Comment on above: 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 Start: 03-19-2023 Evaluation and management of inpatient MIGUEL [facility] Start: 03-19-2023 Evaluation and management of inpatient MIGUEL [facility] Start: 03-18-2023 Evaluation and management of inpatient MIGUEL [facility] Start: 03-17-2023 Evaluation and management of inpatient NOORALDIN [facility] Start: 03-17-2023 End: 03-19-2023 Evaluation and management of inpatient MIGUEL [facility] Start: 03-15-2023 End: 03-15-2023 ambulatory JONATHAN LEIGH [facility] Start: 03-12-2023 End: 03-12-2023 ambulatory Shawn Nelson Other [employer] Other Start: 03-12-2023 Patient encounter procedure Shawn Nelson [facility] Start: 03-10-2023 End: 03-10-[address] DI OCHOA . Facility: Start: 03-07-2023 End: 03-07-[address] [facility] Facility:[facility] Start: 02-21-2023 End: 02-21-[address] [facility] Facility:[facility] Start: 02-19-2023 End: 02-19-2023 ambulatory RITA BHATT Facility:[facility] Start: 01-31-2023 Telephone encounter Caesar garcía MD Work Phone: Cancer [facility] Comment on above: Return Call Request; Call pt Start: 01-31-2023 End: 01-31-[address] 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 Facility: Start: 01-08-2023 Telephone encounter Margot galvin RN Work Phone: Hematology/Oncology Comment on above: Care Coordination (C 1D1 Post Treatment Call) Start: 01-02-2023 End: 01-03-2023 ambulatory Chair 14 Cristel Work Phone: Hematology/Oncology Comment on above: 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); Malignant neoplasm of right kidney, except renal pelvis (HCC); Malignant neoplasm of ureter, unspecified laterality (HCC) Start: 01-02-2023 End: 01-02-2023 Office outpatient visit 25 minutes Caesar Vazquez MD Work Phone: Hematology/Oncology Comment on above: 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); Malignant neoplasm of ureter, unspecified laterality (HCC) Start: 12-31-2022 End: 12-31-2022 ambulatory Margot So RN Work Phone: Hematology/Oncology Comment on above: Non-Chemotherapy Vinod atment (Pembrolizumab) Start: 12-19-2022 Telephone encounter Jimbo alvarado MD Work Phone: [facility] Comment on above: Patient Update Start: 12-18-2022 End: 12-19-2022 ambulatory Jian RODRIGUEZ Facility:[facility] Start: 12-17-2022 Telephone encounter Lauren Mckeon RN Work Phone: Hematology/Oncology Comment on above: Care Coordination (R eschedule appointment) Start: 12-08-2022 End: 12-08-[address] YOAN SNEED . Facility: Start: 12-05-2022 End: 12-06-2022 ambulatory Jian RODRIGUEZ Facility:[facility] Start: 12-05-2022 End: 12-05-2022 Patient encounter procedure Jian RODRIGUEZ [facility] Start: 11-26-2022 End: 11-26-2022 ambulatory Caesar Vazquez MD Work Phone: Hematology/Oncology Comment on above: Malignant neoplasm o f ureter, unspecified laterality (HCC) (Primary Dx) Start: 11-26-2022 End: 11-26-2022 Patient encounter procedure Caesar Vazquez MD Work Phone: [facility] Start: 11-20-2022 End: 11-20-2022 ambulatory Rita Bhatt MD Work Phone: Urology Comment on above: 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, unspecified laterality (HCC) (Primary Dx) Start: 11-20-2022 End: 11-20-2022 Telemedicine consultation with patient Rita Bhatt MD Work Phone: [facility] Start: 11-09-2022 End: 11-09-[address] YOAN SNEED . Facility: Start: 10-10-2022 End: 10-10-2022 ambulatory Shawn Nelson Other [employer] Other Start: 10-10-2022 Telephone encounter Shawn [facility] Start: 09-26-2022 End: 09-27-[address] YOAN SNEED . 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 Other Start: 07-30-2022 Telephone encounter Shawn Barros [facility] Start: 05-04-2022 ambulatory Claire Harrison RN [facility] Start: 03-26-2022 End: 03-26-2022 ambulatory Jimmy Tejada PA-C Work Phone: Urology Comment on above: Urothelial carcinoma (HCC) (Primary Dx) Start: 03-26-2022 End: 03-26-2022 Telemedicine consultation with patient Jimmy Tejada PA-C Work Phone: [facility] Start: 03-14-2022 ambulatory Claire Harrison RN [facility] Start: 03-13-2022 End: 03-13-2022 ambulatory Rita Bhatt MD Work Phone: Urology Comment on above: 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, unspecified laterality (HCC) (Primary Dx); Acute cystitis without hematuria Start: 03-13-2022 End: 03-13-2022 Telemedicine consultation with patient Rita Bhatt MD Work Phone: [facility] Start: 03-08-2022 End: 03-08-2022 ambulatory Augusto Sauceda Other [employer] Other Start: 03-08-2022 Office outpatient vi sit 25 minutes Augusto Sauceda [facility] Start: 03-05-2022 End: 03-05-2022 ambulatory Soren [...] [facility] Start: 01-22-2022 End: 01-22-2022 ambulatory Chair Gaston Fajardo Work Phone: Hematology/Oncology Comment on above: Malignant neoplasm o f ureter, unspecified laterality (HCC) (Primary Dx) Start: 01-15-2022 End: 01-15-2022 ambulatory Corazon Maxwell PA-C Work Phone: Hematology/Oncology Comment on above: Malignant neoplasm o f ureter, unspecified laterality (HCC) (Primary Dx) Start: 01-15-2022 End: 01-15-2022 Patient encounter procedure Corazon MCLAUGHLIN-C Work Phone: [facility] Start: 01-08-2022 End: 01-08-2022 ambulatory Soren Perea MD Work Phone: Hematology/Oncology Comment on above: Malignant neoplasm o f ureter, unspecified laterality (HCC) (Primary Dx) Start: 01-08-2022 End: 01-08-2022 Patient encounter procedure Soren Perea MD Work Phone: [facility] Start: 07-08-2020 End: 07-08-2020 Subsequent hospital visit by physician Lu [facility] Work Phone: Radiology Comment on above: 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, unspecified laterality (HCC) [C64.9] Start: 04-29-2018 End: 04-30-2018 Patient encounter DEFAULT PHYSICIAN Facility:[facility] Start: 04-21-2018 End: 04-22-2018 Patient encounter DEFAULT PHYSICIAN Facility:[facility] Procedures Date Procedure Procedure Detail Performing Clinician Start: 09-26-[address] EDEN OCHOA . Comment on above: Performed By: #### I LASHAE, PSASC, VITAD #### [facility] [address] [place] [address] Dr. Tan Oliveros Start: 09-12-2022 Urnls dip [...] bladder neoplasm Jian RODRIGUEZ Start: 07-03-2018 Nephroureterectomy Gladisr damirmarline RODRIGUEZ Comment on above: left side Start: 05-15-2018 Biopsy of bladder Samir RODRIGUEZ Comment on above: 05/15/2018 * Cysto, bl adder bx, fulguration, left ureteral dilation, left ureteroscopy, ureteral biopsy, left pyeloscopy, right ureteroscopy, left stent placement with clot evacuation. 04/05/2016* cystoscopy, bilateral rg, bladder biopsy, fulguration. Start: 05-10-2016 Pyeloscopy Jian AWAD Comment on above: 05/10/2016 * Cysto, [...] Detail Author Start: 02-27-2032 Urine microalbumin profile [facility] Start: 12-19-2026 [facility] Start: 11-29-2026 [facility] Start: 11-02-2026 [facility] Start: 09-19-2026 [facility] Start: 08-29-2026 [facility] Start: 08-08-2026 [facility] Start: 07-18-2026 [facility] Start: 06-27-2026 [facility] Start: 06-06-2026 DIABETES SCREEN [facility]CRE[facility] Start: 05-16-2026 DIABETES SCREEN [facility]CRE[facility] Start: 04-25-2026 DIABETES SCREEN [facility]ET[facility]CREEN [facility] Start: 04-04-2026 DIABETES SCREEN [facility]CREEN [facility] Start: 01-23-2026 DIABETES SCREEN [facility]ET[facility] SCREEN [facility] Start: 12-31-2025 DIABETES SCREEN DI[facility]ET[facility] SCREEN [facility] Start: 11-19-2025 DIABETES SCREEN DI[facility]ETES SCREEN [facility] Start: 09-12-2025 DIABETES SCREEN DIABETES SCREEN [facility] Start: 03-16-2025 DIABETES SCREEN DIABETES SCREEN [facility] Start: 03-05-2025 DIABETES SCREEN [facility]ET[facility] SCREEN [facility] Start: 02-19-2025 DIABETES SCREEN [facility]ET[facility] SCREEN [facility] Start: 02-12-2025 DIABETES SCREEN DIABETES SCREEN [facility] Start: 02-05-2025 DIABETES SCREEN DI[facility]ETES SCREEN [facility] Start: 01-22-2025 DIABETES SCREEN DI[facility]ETES SCREEN [facility] Start: 01-15-2025 DIABETES SCREEN [facility]ET[facility] SCREEN [facility] Start: 01-08-2025 DIABETES SCREEN [facility]ET[facility] SCREEN [facility] Start: 12-24-2023 End: 03-24-2024 CBC W Auto Differential panel - Blood CBC + DIFF Lab Routine 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), stage V (HCC) Abnormal weight loss Malignant neoplasm of urinary bladder, unspecified site (HCC) Expected: 12/24/2023, Expires: 03/24/2024 [facility] Work Phone: Comment on above: Expected: 12/24/2023 , Expires: 03/24/2024 Start: 12-24-2023 End: 03-24-2024 Comprehensive metabolic 2000 panel - Serum or Plasma COMP METABOLIC PANEL Lab Routine 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), stage V (HCC) Abnormal weight loss Malignant neoplasm of urinary bladder, unspecified site (HCC) Expected: 12/24/2023, Expires: 03/24/2024 [facility] Work Phone: Comment on above: Expected: 12/24/2023 , Expires: 03/24/2024 Start: 10-14-2023 Advance Directive Discussion Advance Directive Discussion [facility] Start: 10-14-2023 Depression Assessment Depression Ass essment [facility] Start: 10-07-2023 Shingrix Vaccine (2 of 2) Banks grix Vaccine (2 of 2) [facility] Start: 08-22-2023 End: 08-16-2024 Ct abdomen & pelvis w/contrast material CT ABD/PEL W IVCON Radiology Routine Malignant 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) Expected: 08/22/2023 (Approximate), Expires: 08/16/2024 [facility] Work Phone: Comment on above: Expected: 08/22/2023 (Approximate), Expires: 08/16/2024 Start: 08-22-2023 End: 08-16-2024 CT CHEST W IVCON CT CHEST W IVCON Radiology Routine Malignant 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) Expected: 08/22/2023 (Approximate), Expires: 08/16/2024 [facility] Work Phone: Comment on above: Expected: 08/22/2023 (Approximate), Expires: 08/16/2024 Start: 07-19-2023 End: 09-18-2023 CBC W Auto Differential panel - Blood CBC + DIFF Lab Routine Malignant 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) Malaise and fatigue Expected: 07/19/2023, Expires: 09/18/2023 [facility] Work Phone: Comment on above: Expected: 07/19/2023 , Expires: 09/18/2023 Start: 07-19-2023 End: 09-18-2023 Comprehensive metabolic 2000 panel - Serum or Plasma COMP METABOLIC PANEL Lab Routine Malignant 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) Malaise and fatigue Expected: 07/19/2023, Expires: 09/18/2023 [facility] Work Phone: Comment on above: Expected: 07/19/2023 , Expires: 09/18/2023 Start: 07-19-2023 End: 09-18-2023 Thyrotropin [Units/volume] in Serum or Plasma TSH BLD Lab Routine Malignant 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) Malaise and fatigue Expected: 07/19/2023, Expires: 09/18/2023 [facility] Work Phone: Comment on above: Expected: 07/19/2023 , Expires: 09/18/2023 Start: 06-14-2023 Covid-19 Vaccine () Covid-19 Vaccine () [facility] Start: 06-14-2023 Influenza vaccination [facility] Start: 04-25-2023 End: 06-25-2023 Thyroxine (T4) free [Mass/volume] in Serum or Plasma [facility] Work Phone: Comment on above: Expected: 04/25/2023 , Expires: 06/25/2023 Start: 04-25-2023 End: 06-25-2023 Triiodothyronine (T3) [Mass/volume] in Serum or Plasma [facility] Work Phone: Comment on above: Expected: 04/25/2023 , Expires: 06/25/2023 Start: 12-19-2022 End: 02-18-2023 Renal function 2000 panel - Serum or Plasma RENAL FUNCTION PANEL Lab Routine CELSO (acute kidney injury) (HCC) Expected: 12/19/2022, Expires: 02/18/2023 [facility] Work Phone: Comment on above: Expected: 12/19/2022 , Expires: 02/18/2023 Start: 10-14-2022 ADVANCE DIRECTIVE DISCUSSION ADVANCE DIRECTIVE DISCUSSION [facility] Start: 10-14-2022 DEPRESSION ASSESSMENT DEPRESSION ASS ESSMENT [facility] Start: 06-14-2022 Influenza vaccination [facility] Start: 03-13-2022 End: 03-13-2023 ECG COMPLETE ECG COMPLETE ECG Routine 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, unspecified laterality (HCC) Expected: 03/13/2022, Expires: 03/13/2023 [facility] Work Phone: Comment on above: Expected: 03/13/2022 , Expires: 03/13/2023 Start: 02-19-2022 End: 04-21-2022 CBC W Auto Differential panel - Blood CBC + DIFF Lab Routine Malignant neoplasm of ureter, unspecified laterality (HCC) Expected: 02/19/2022, Expires: 04/21/2022 [facility] Work Phone: Comment on above: Expected: 02/19/2022 , Expires: 04/21/2022 Start: 02-19-2022 End: 04-21-2022 Comprehensive metabolic 2000 panel - Serum or Plasma COMP METABOLIC PANEL Lab Routine Malignant neoplasm of ureter, unspecified laterality (HCC) Expected: 02/19/2022, Expires: 04/21/2022 [facility] Work Phone: Comment on above: Expected: 02/19/2022 , Expires: 04/21/2022 Start: 01-22-2022 End: 03-24-2022 CBC W Auto Differential panel - Blood CBC + DIFF Lab Routine Malignant neoplasm of ureter, unspecified laterality (HCC) Expected: 01/22/2022, Expires: 03/24/2022 [facility] Work Phone: Comment on above: Expected: 01/22/2022 , Expires: 03/24/2022 Start: 01-22-2022 End: 03-24-2022 Comprehensive metabolic 2000 panel - Serum or Plasma COMP METABOLIC PANEL Lab Routine Malignant neoplasm of ureter, unspecified laterality (HCC) Expected: 01/22/2022, Expires: 03/24/2022 [facility] Work Phone: Comment on above: Expected: 01/22/2022 , Expires: 03/24/2022 Start: 12-14-2021 COVID-19 VACCINE (4 - Booster for Pfizer series) COVID-19 VACCINE (4 - Booster for Pfizer series) [facility] Start: 11-10-2021 COVID-19 VACCINE (4 - Booster for Pfizer series) COVID-19 VACCINE (4 - Booster for Pfizer series) [facility] Start: 11-10-2021 COVID-19 VACCINE (6 - Pfizer series) COVID-19 VACCINE (6 - Pfizer series) [facility] Start: 10-14-2021 ADVANCE DIRECTIVE DISCUSSION ADVANCE DIRECTIVE DISCUSSION [facility] Start: 10-14-2021 DEPRESSION ASSESSMENT DEPRESSION ASS ESSMENT [facility] Start: 06-14-2021 Influenza vaccination INFLUENZA (#1) [facility] Start: 02-13-2018 PNEUMOCOCCAL: 65+ (3 - PPSV23 or PCV20) PNEUMOCOCCAL: 65+ (3 - PPSV23 or PCV20) [facility] Start: 01-16-2013 Urine microalbumin profile DTAP,TDAP ,TD (1 - Tdap) [facility] Start: 1999 Hepatitis B Vaccine (1 of 3 - Risk 3-dose series) Hepatitis B Vaccine (1 of 3 - Risk 3-dose series) [facility] Start: 1999 RSV Vaccine (1 - 1-d ose 60+ series) RSV Vaccine (1 - 1-dose 60+ series) [facility] Start: 1989 SHINGRIX VACCINE (1 of 2) BANKS GRIX VACCINE (1 of 2) [facility] Start: 1958 Hepatitis A Vaccine (1 of 2 - Risk 2-dose series) Hepatitis A Vaccine (1 of 2 - Risk 2-dose series) [facility] Start: 1958 SHINGRIX VACCINE (1 of 2) BANKS GRIX VACCINE (1 of 2) [facility] Start: 1957 MMR Vaccine (1 of 2 - Risk 2-dose series) MMR Vaccine (1 of 2 - Risk 2-dose series) [facility] Start: 1949 Meningococcal B Vacc ine: Consider Based On Risk (1 of 4 - Increased Risk) Meningococcal B Vaccine: Consider Based On Risk (1 of 4 - Increased Risk) [facility] End: 06-14-2024 Ct abdomen & pelvis w/contrast material CT ABD/PEL W IVCON Radiology Routine Malignant 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) 1 Occurrences starting 05/16/2023 until 06/14/2024 [facility] Work Phone: Comment on above: 1 Occurrences starti ng 05/16/2023 until 06/14/2024 End: 01-18-2025 CT Abdomen and Pelvis W contrast IV CT ABD/PEL W IVCON Radiology Routine Malignant neoplasm of urinary bladder, unspecified site (HCC) 1 Occurrences starting 12/20/2023 until 01/18/2025 [facility] Work Phone: Comment on above: 1 Occurrences starti ng 12/20/2023 until 01/18/2025 End: 01-18-2025 CT Chest W contrast IV CT CHEST W IVCON Radiology Routine Malignant neoplasm of urinary bladder, unspecified site (HCC) 1 Occurrences starting 12/20/2023 until 01/18/2025 [facility] Work Phone: Comment on above: 1 Occurrences starti ng 12/20/2023 until 01/18/2025 End: 06-14-2024 CT CHEST W IVCON CT CHEST W IVCON Radiology Routine Malignant 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) 1 Occurrences starting 05/16/2023 until 06/14/2024 [facility] Work Phone: Comment on above: 1 Occurrences starti ng 05/16/2023 until 06/14/2024 ECG COMPLETE ECG COMPLETE ECG Routine Pre-op evaluation 09/12/2022 11:47 AM EST [facility] Work Phone: REFERRAL FOR ADDITIO NAL BIOMARKER AND MOLECULAR TESTING REFERRAL FOR ADDITIONAL BIOMARKER AND MOLECULAR TESTING Lab Routine Malignant neoplasm of ureter, unspecified laterality (HCC) 12/03/2022 9:12 AM EST [facility] Work Phone: [facility] Immunizations Immunization Date Immunization Notes Care Provider Laurence rockwell 08-12-2023 zoster vaccine recombinant Chair Fam Work Phone: [facility] 02-26-2022 diphtheria, tetanus toxoids and pertussis vaccine Chair Fam Work Phone: [facility] 09-15-2021 SARS-CoV-2 (COVID-19 ) mRNA BNT-162b2 vax Jian RODRIGUEZ [facility] 11-26-2020 SARS-CoV-2 (COVID-19 ) mRNA BNT-162b2 vax Jian RODRIGUEZ [facility] 11-05-2020 SARS-CoV-2 (COVID-19 ) mRNA BNT-162b2 vax Jian RODRIGUEZ [facility] 08-09-2015 influenza nasal, unspecified formulation Chair Fam Work Phone: [facility] 08-09-2015 influenza virus vacc ine, unspecified formulation Jian RODRIGUEZ [facility] 08-09-2015 influenza, intraderm al, quadrivalent, preservative free, injectable Soren Perea MD Work Phone: [facility] 01-07-2015 pneumococcal conjuga te vaccine, 13 valent Soren Perea MD Work Phone: [facility] 02-13-2013 pneumococcal polysaccharide vaccine, 23 valsadie Perea MD Work Phone: [facility] 01-15-2013 tetanus and diphther ia toxoids, adsorbed, preservative free, for adult use (2 Lf of tetanus toxoid and 2 Lf of diphtheria toxoid) Jian JENNIFER [facility] 01-15-2013 tetanus and diphther ia toxoids, adsorbed, preservative free, for adult use (5 Lf of tetanus toxoid and 2 Lf of diphtheria toxoid) Soren Perea MD Work Phone: [facility] Payers Date Payer Category Payer Private Health Insurance [facility] [employer] SUPPLEMENT [id number] 2021-Present [phone] [address] [place] [address] Indemnity [id number] 2019 Medicare [id number] 2017 Private Health Insurance [id number] 2005 Medicare MEDICARE MEDICAR E A AND B [id number] 2005-Present [phone] [place] [address] Medicare [id number] 2005 Medicare MEDICARE MEDICAR E A AND B [id number] 2005-Present [phone] [place] [address] Medicare [id number] 1959 Medicare [id number] 1959 Medicare [id number] 1959 Unknown [id number] 1939 Unknown [id number] 1939 Unknown [id number] 1939 Unknown [id number] 1939 Unknown [id number] 1939 Unknown [id number] 1939 Unknown [id number] 1939 Unknown [id number] 1939 Unknown [id number] 1939 Unknown [id number] Unknown Unknown [id number] Social History Date Type Detail Facility Start: 07-14-2018 End: 11-26-2022 Tobacco smoking status NHIS Ex-smoker [facility] Comment on above: patient quit smoking over 30 years ago End: 10-14-1970 History of tobacco use Current smoker [facility] End: 10-14-1970 History of tobacco use Cigarette Smoker [facility] Start: 07-14-2018 End: 02-19-2023 Cigarettes smoked current (pack per day) - Reported 1 [facility] Start: 07-14-2018 End: 11-26-2022 Tobacco use and exposure Smokeless tobacco non-user [facility] Start: 01-08-2022 End: 11-29-2023 Alcohol intake Current non-drinker of alcohol (finding) [facility] Start: 1940 Sex Assigned At Male [facility] Start: 12-29-2021 End: 09-12-2022 Exposure to SARS-CoV-2 (event) Not sure [facility] Start: 02-19-2023 End: 03-07-2023 Sex Assigned At [facility] History of tobacco use Passive smoker [facility] Tobacco smoking status Never [facility] Comment on above: patient quit smoking over 30 years ago Start: 09-28-2019 Gender identity Identifies as male gender (finding) [facility] Start: 09-28-2019 Sexual orientation Heterosexual (nestor steele) [facility] Medical Equipment Procedure Code Equipment Code Equipment Origin al Text Equipment Identifier Dates Inlay [facility] [facility] Ureteral Stent Kit 7f X 26cm [id number] Start: 10-29-2019 Stent Inlay Opti ma 7fr Taper [place] Green Polymer Phreecoat 24cm Ureteral - [id number] Start: 08-12-2019 Stent Inlay Opti ma 7fr Taper [place] Green Polymer Phreecoat 26cm Ureteral - [id number] Start: 09-30-[address] [place] 7fr Taper [place] Green Nitinol Polymer 24cm - [id number] Start: 10-26-2021 Stent Inlay Opti ma 6fr Taper [place] Green Polymer Phreecoat 24cm Ureteral - [id number] Start: 11-12-2022 Functional Status Date Assessment Result Facility 12-05-2022 Functional Status N/A [facility] Clinical Notes 07-08-2020 to 12-20-2023 Wayne Chavez APRN.ABIOAL - 12/20/2023 1:16 PM Jami Cannon MA - 12/20/2023 1:10 PM Caesar Rutledge MD - 11/29/2023 1:15 PM ESTPatient InstructionsPatient Instructions Note Date & Type Note Facility 12-20-2023 Note [facility] 12-20-2023 History of Present illness Narrative Images from the original note were not included. NAME: Juan Jose Austin NO.: [id number] DATE OF SERVICE: December 20, 2023 (Scott) Some elements in this clinic note that are critical to medical decision making have been carefully reviewed and included from a prior clinic note dated: November 29, 2023. (Dr. Vazquez) Referring Provider: Dr. Rita Bhatt Additional Clinicians involved in Juan [...] He had episodes of shortness of breath for which we ruled out pneumonitis. Shortness of breath and syncopal episodes were found to be cardiac related and a pacemaker was placed on 03/18/2023. NGS. Was unrevealing. No evidence of pneumonitis on imaging. PLAN: Proceed with pembrolizumab cycle 14 today. Follow up in 3 weeks for continued treatment. Labs same day. CT scans scheduled for 01/24/2024. Follow up with Dr. Vazquez 01/31/2024. HPI: CASE HISTORY: Reverse Chronological Order 11/05/2023 - XR Abdomen: Nonobstructive bowel gas pattern. US RUQ: 2.4cm echogenic focus in the right hepatic lobe, nonspecific possibly a hemangioma 11/02/2023 - CT A/P: No definitive evidence of acute abdominal or pelvic processes identified. Distended gallbladder. If concern for acute gallbladder pathology consider ultrasound. 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 08/23/2023 - CT CAP: No evidence of intrathoracic metastases. New 1.6 cm right thyroid nodule. More conspicuous indeterminate 2.7 x 1.0 cm hypodensity in left frontal lobe adjacent to the falciform ligament. Differential diagnosis includes area of focal fatty infiltration, perfusion anomaly and other focal hepatic abnormality. Consider continued interval follow-up or further evaluation via MRI. 05/31/2023 - CT CAP: negative. 03/18/2023 - Permanent pacemaker placed 03/07/2023 [...] transitional cell carcinoma in situ Updated Visit, December,: Juan Jose Austin returns for follow-up and continued treatment with pembrolizumab. He remains on pembrolizumab every 3 weeks. He has been experiencing some weight loss. Since his last visit his weight is down 10 pounds. He has taste changes. He denies skin rashes. No cough, shortness of breath or other pulmonary complaints. He denies fevers, chills, night sweats and signs/symptoms of infection. No bleeding or abnormal bruising. He wishes to continue with treatment as planned. Updated Visit, November 29, 2023: Juan Jose returns today with Ivone. He is recovered from an illness involving dehydration, nausea, vomiting, and diarrhea. He reports his mouth is dry and he has to force himself to eat, he has no appetite. We discussed his scans from October, shows no metastasis. Proceed with cycle 13 today but will start hydration as well. Will monitor him to be sure he did not have immune mediated colitis. Updated Visit, October 10, 2023: Juan Jose returns today for follow up. Has been doing pretty well, keeping up with doing things around the house. Does unfortunately report his has been having some medical problems, he believes she may be starting to show signs of Alzheimer's. We reviewed his labs, his renal function appears stable. He has satisfactory blood counts. Updated Visit, September 19, 2023: Juan Jose Austin returns for follow-up and to possibly resume pembrolizumab. He had his last dose of steroids yesterday, 09/18/2023. He states that he is doing good. He states that his throat is not really dry. His daughter bought him mouth lozenges for the dryness which has helped. He has lost 2 more pounds since his last visit. He states that he is eating a lot. He is urinating without pain, burning or difficulty. He reports that his urine is clear. No blood in his urine. No fevers, chills, night sweats or signs/symptoms of infection. No bleeding or abnormal bruising. Overall, he is doing well and wishes to proceed with treatment as planned. Updated Visit, August 29, 2023: Lost 11 [...] pacemaker was inserted on on 03/18/2023 at [facility] with Dr. Bautista. His shortness [...] also reviewed. Updated Visit, December 24, 2022: Virtual Visit Spoke with Juan Jose and with daughter Britt - they could see me but their video feed was down. Given his comorbidities he is a poor candidate for chemotherapy, kashia based or otherwise. Surgery would yield him [...] PERFORMANCE STATUS: 0 PHYSICAL EXAMINATION: Vitals: BP 119/49 Pulse 66 Temp (Src) 97.2 (Temporal) Resp 16 Ht 5' 4.016 (1.63m) Wt 139 lb 1.8 oz (63.1kg) SpO2 97% BMI 23.87 kg/(m^2). Body surface area is 1.69 meters squared. Exam limited to gross visualization [...] wounds or petechiae. ALLERGIES: ALLERGIES Allergen Reactions Desonide Unknown Tape [Adhesive Tape* Other: See Comments Severe blisters MEDICATIONS: ondansetron orally disintegrating (ZOFRAN ODT) 4 mg disintegrating tablet pantoprazole DR (PROTONIX) 40 mg tablet isosorbide dinitrate (ISORDIL) 20 mg tablet Take 20 mg by mouth three times a day. levothyroxine (SYNTHROID) 25 mcg tablet 1 tablet [...] in the CT contrast administration guidelines link. (Patient not taking: Reported on 10/10/2023) losartan (COZAAR) 50 mg tablet Take 50 mg by mouth two times a day. potassium chloride (K-TAB) 10 mEq tablet Take 10 mEq by mouth twice daily. isosorbide mononitrate ER (IMDUR) 30 mg 24 hr tablet Take 30 mg by mouth once daily. (Patient not taking: Reported on 11/29/2023) metoprolol succinate ER (TOPROL XL) 25 mg 24 hr tablet Take 25 mg by mouth once daily. amLODIPine (NORVASC) 10 mg tablet Take 10 mg by mouth once daily. hydrALAZINE (APRESOLINE) 50 mg tablet Take 25 mg by mouth three times a day. omeprazole (PRILOSEC) 20 mg capsule Take 1 capsule by mouth twice daily. (Patient not taking: Reported on 11/29/2023) furosemide (LASIX) 20 mg tablet Take 20 mg by mouth as needed. aspirin, enteric coated (ASPIRIN, ENTERIC COATED) 81 mg EC tablet Take 81 mg by mouth once daily. Glucosamine-Chondroitin 500-400 mg tablet Take 1 tablet by mouth once daily. folic acid/multivit-min/lutein (CENTRUM SILVER ORAL) Take 1 tablet by mouth once daily. balsalazide (COLAZAL) 750 mg capsule Take 2,250 mg by mouth once daily. atorvastatin (LIPITOR) 10 mg tablet Take 10 mg by mouth once daily. LABORATORY VALUES: WBC (k/uL) Date Value 12/20/2023 5.45 RBC (m/uL) Date Value 12/20/2023 4.80 Hemoglobin (g/dL) Date Value 12/20/2023 13.2 Hematocrit (%) Date Value 12/20/2023 39.1 MCV (fL) Date Value 12/20/2023 81.5 MCH (pg) Date Value 12/20/2023 27.5 MCHC (g/dL) Date Value 12/20/2023 33.8 RDW-CV (%) Date Value 12/20/2023 15.9 (H) Platelet Count (k/uL) Date Value 12/20/2023 234 MPV (fL) Date Value 12/20/2023 8.3 (L) Glucose (mg/dL) Date Value 12/20/2023 113 (H) BUN (mg/dL) Date Value 12/20/2023 14 Creatinine (mg/dL) Date Value 12/20/2023 1.75 (H) Sodium (mmol/L) Date Value 12/20/2023 132 (L) Potassium (mmol/L) Date Value 12/20/2023 4.2 Chloride (mmol/L) Date Value 12/20/2023 97 CO2 (mmol/L) Date Value 12/20/2023 27 Protein, Total (g/dL) Date Value 12/20/2023 5.2 (L) Albumin (g/dL) Date Value 12/20/2023 3.6 (L) Calcium, Total (mg/dL) Date Value 12/20/2023 9.0 Alkaline Phosphatase (U/L) Date Value 12/20/2023 59 Bilirubin, Total (mg/dL) Date Value 12/20/2023 0.7 AST (U/L) Date Value 12/20/2023 27 ALT (U/L) Date Value 12/20/2023 19 DIAGNOSIS: (C67.8) Malignant 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) (primary encounter diagnosis) (N18.5) CKD (chronic kidney disease), stage V (HCC) (R63.4) Abnormal weight loss (C67.9) Malignant neoplasm of urinary bladder, unspecified site (HCC) PAST MEDICAL HISTORY Diagnosis Date Bladder cancer (HCC) Cancer (HCC) Incasive Ureteral Cancer Hematuria Hypertension Nephrolithiasis PAST SURGICAL HISTORY Procedure Laterality Date BACK SURGERY HX CARPAL TUNNEL HERNIA REPAIR HX PAST SURGICAL HISTORY OF Left 06/2018 Nephroureterectomy Social History Tobacco Use Smoking status: Former Packs/day: 1.00 Years: 30.00 Additional pack years: 0.00 Total pack years: 30.00 Types: Cigarettes Quit date: 1970 Years since quittin.2 Passive exposure: Past Smokeless tobacco: Never Vaping Use Vaping Use: Never used Substance Use Topics Alcohol use: No Drug use: No FAMILY HISTORY Problem Relation Age of Onset Asthma Mother other (htn) Mother Asthma Sister Anesthesia Problems No Family History Wayne Chavez APRN.[employer] Hematology and Oncology Services Provided at: [place], [place] CC: Yoan Sneed MD [address] [facility] [place] [address] I spent a total of 30 minutes on the date of the service which included preparing to see the patient, [id number] patient care, completing clinical documentation, obtaining and/or reviewing separately obtained history, performing a medically appropriate examination, counseling and educating the patient/family/caregiver, ordering medications, tests, or procedures, independently interpreting results (not separately reported), and communicating results to the patient/family/caregiver. documented in this encounter [facility] 12-20-2023 Nurse Note Patient state that he has been losing weight, he has no desire to eat, nothing tastes good he has to force himself to eat. Jami Hernandez MA documented in this encounter [facility] 12-09-2023 Note [facility] Consult Note Reason for visit: S/P PPM hospital follow up 12/09/23: is here for hospital follow-up he was seen at [facility] for complaints of nausea and vomiting, his troponins were 0.07 he was recommended ischemic evaluation; patient declined when to be discharged> few days later he went to [facility] ER for the same complaints but no troponin was drawn his symptoms have resolved but given elevated troponin with atypical symptoms we discussed doing a Lexiscan stress test to rule out ischemia 08/2023 Pt has been doing well. Feeling better. [...] moderate, relieved by rest. He was evaluated [facility] ED and his CBC, BMP, BNP, [...] 22, creatinine 1.63, potassium 3.9, LFTs within (more content not included)... [facility] 12-09-2023 Note Patient here for [facility] ED in Oct 2023. He presented for nausea and vomiting. Troponins were elevated. Physican wanted to admit him for possible cardiac issues but patient wanted to be discharged. A few days later he presented to [facility] ED for same thing. Says Dr. Sneed stopped losartan recently due to hypotension. He denies chest pain, palpitations, and lightheadedness/syncope. C/o worsening SOB w/ exertion. He has lost 29# since last visit in April 2023. Review of Systems Constitutional: Positive for weight loss (29# since April 2023). Cardiovascular: Positive for dyspnea on exertion (worsening) and leg swelling (minimal, intermittent). Musculoskeletal: Positive for arthritis, back pain, joint pain and muscle weakness. All other systems reviewed and are negative. [facility] 11-29-2023 Note [facility] 11-29-2023 History of Present illness Narrative Images from the original note were not included. NAME: Juan Jose Austin CLINIC NO.: [id number] DATE OF SERVICE: November 29, 2023 (ellynct) Some elements in this clinic note that are critical to medical decision making have been carefully reviewed and included from a prior clinic note dated: October 10, 2023 (Eve) Referring Provider: Dr. Rita Bhatt Additional Clinicians involved in Juan [...] He had episodes of shortness of breath for which we ruled out pneumonitis. Shortness of breath and syncopal episodes were found to be cardiac related and a pacemaker was placed on 03/18/2023. NGS. Was unrevealing. No evidence of pneumonitis on imaging. PLAN: Proceed with pembrolizumab cycle 13 today. Hydration today. Follow up in 3 weeks for continued treatment. Labs same day. See Wayne or Corazon RTC 6 weeks with me Labs same day HPI: CASE HISTORY: Reverse Chronological Order 11/05/2023 - XR Abdomen: Nonobstructive bowel gas pattern. US RUQ: 2.4cm echogenic focus in the right hepatic lobe, nonspecific possibly a hemangioma 11/02/2023 - CT A/P: No definitive evidence of acute abdominal or pelvic processes identified. Distended gallbladder. If concern for acute gallbladder pathology consider ultrasound. 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 08/23/2023 - CT CAP: No evidence of intrathoracic metastases. New 1.6 cm right thyroid nodule. More conspicuous indeterminate 2.7 x 1.0 cm hypodensity in left frontal lobe adjacent to the falciform ligament. Differential diagnosis includes area of focal fatty infiltration, perfusion anomaly and other focal hepatic abnormality. Consider continued interval follow-up or further evaluation via MRI. 05/31/2023 - CT CAP: negative. 03/18/2023 - Permanent pacemaker placed 03/07/2023 [...] transitional cell carcinoma in situ Updated Visit, November 29, 2023: Juan Jose returns today with Ivone. He is recovered from an illness involving dehydration, nausea, vomiting, and diarrhea. He reports his mouth is dry and he has to force himself to eat, he has no appetite. We discussed his scans from October, shows no metastasis. Proceed with cycle 13 today but will start hydration as well. Will monitor him to be sure he did not have immune mediated colitis. Updated Visit, October 10, 2023: Juan Jose returns today for follow up. Has been doing pretty well, keeping up with doing things around the house. Does unfortunately report his has been having some medical problems, he believes she may be starting to show signs of Alzheimer's. We reviewed his labs, his renal function appears stable. He has satisfactory blood counts. Updated Visit, September 19, 2023: Juan Jose Austin returns for follow-up and to possibly resume pembrolizumab. He had his last dose of steroids yesterday, 09/18/2023. He states that he is doing good. He states that his throat is not really dry. His daughter bought him mouth lozenges for the dryness which has helped. He has lost 2 more pounds since his last visit. He states that he is eating a lot. He is urinating without pain, burning or difficulty. He reports that his urine is clear. No blood in his urine. No fevers, chills, night sweats or signs/symptoms of infection. No bleeding or abnormal bruising. Overall, he is doing well and wishes to proceed with treatment as planned. Updated Visit, August 29, 2023: Lost 11 [...] pacemaker was inserted on on 03/18/2023 at [facility] with Dr. Bautista. His shortness [...] also reviewed. Updated Visit, December 24, 2022: Virtual Visit Spoke with Juan Jose and with daughter Britt - they could see me but their video feed was down. Given his comorbidities he is a poor candidate for chemotherapy, kashia based or otherwise. Surgery would yield him [...] PERFORMANCE STATUS: 0 PHYSICAL EXAMINATION: Vitals: BP 100/50 Pulse 71 Temp (Src) 98 (Temporal) Resp 16 Ht 5' 4.016 (1.63m) Wt 149 lb 11.1 oz (67.9kg) SpO2 98% BMI 25.68 kg/(m^2). Body surface area is 1.75 meters squared. Exam limited to gross visualization [...] wounds or petechiae. ALLERGIES: ALLERGIES Allergen Reactions Desonide Unknown Tape [Adhesive Tape* Other: See Comments Severe blisters MEDICATIONS: ondansetron orally disintegrating (ZOFRAN ODT) 4 mg disintegrating tablet pantoprazole DR (PROTONIX) 40 mg tablet isosorbide dinitrate (ISORDIL) 20 mg tablet Take 20 mg by mouth three times a day. levothyroxine (SYNTHROID) 25 mcg tablet 1 tablet in the morning on an empty stomach Orally Once a day for 30 days tamsulosin (FLOMAX) 0.4 mg Take 1 capsule by mouth once daily. ferrous sulfate 325 mg (65 mg iron) tablet Take 325 mg by mouth. pembrolizumab (KEYTRUDA) 25 mg/mL injection Inject intravenously. losartan (COZAAR) 50 mg tablet Take 50 mg by mouth two times a day. potassium chloride (K-TAB) 10 mEq tablet Take 10 mEq by mouth twice daily. metoprolol succinate ER (TOPROL XL) 25 mg 24 hr tablet Take 25 mg by mouth once daily. amLODIPine (NORVASC) 10 mg tablet Take 10 mg by mouth once daily. hydrALAZINE (APRESOLINE) 50 mg tablet Take 25 mg by mouth three times a day. furosemide (LASIX) 20 mg tablet Take 20 mg by mouth as needed. aspirin, enteric coated (ASPIRIN, ENTERIC COATED) 81 mg EC tablet Take 81 mg by mouth once daily. Glucosamine-Chondroitin 500-400 mg tablet Take 1 tablet by mouth once daily. folic acid/multivit-min/lutein (CENTRUM SILVER ORAL) Take 1 tablet by mouth once daily. balsalazide (COLAZAL) 750 mg capsule Take 2,250 mg by mouth once daily. atorvastatin (LIPITOR) [...] in the CT contrast administration guidelines link. (Patient not taking: Reported on 10/10/2023) isosorbide mononitrate ER (IMDUR) 30 mg 24 hr tablet Take 30 mg by mouth once daily. (Patient not taking: Reported on 11/29/2023) omeprazole (PRILOSEC) 20 mg capsule Take 1 capsule by mouth twice daily. (Patient not taking: Reported on 11/29/2023) LABORATORY VALUES: WBC (k/uL) Date Value 11/29/2023 5.98 RBC (m/uL) Date Value 11/29/2023 4.95 Hemoglobin (g/dL) Date Value 11/29/2023 13.6 Hematocrit (%) Date Value 11/29/2023 40.4 MCV (fL) Date Value 11/29/2023 81.6 MCH (pg) Date Value 11/29/2023 27.5 MCHC (g/dL) Date Value 11/29/2023 33.7 RDW-CV (%) Date Value 11/29/2023 15.0 Platelet Count (k/uL) Date Value 11/29/2023 234 MPV (fL) Date Value 11/29/2023 8.5 (L) Glucose (mg/dL) Date Value 11/29/2023 126 (H) BUN (mg/dL) Date Value 11/29/2023 12 Creatinine (mg/dL) Date Value 11/29/2023 1.87 (H) Sodium (mmol/L) Date Value 11/29/2023 136 Potassium (mmol/L) Date Value 11/29/2023 3.5 (L) Chloride (mmol/L) Date Value 11/29/2023 100 CO2 (mmol/L) Date Value 11/29/2023 27 Protein, Total (g/dL) Date Value 11/29/2023 5.4 (L) Albumin (g/dL) Date Value 11/29/2023 3.5 (L) Calcium, Total (mg/dL) Date Value 11/29/2023 8.9 Alkaline Phosphatase (U/L) Date Value 11/29/2023 68 Bilirubin, Total (mg/dL) Date Value 11/29/2023 0.6 AST (U/L) Date Value 11/29/2023 21 ALT (U/L) Date Value 11/29/2023 15 DIAGNOSIS: (C67.8) Malignant 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) (primary encounter diagnosis) Plan: DISCONTINUED: pembrolizumab 200 mg in NaCl 0.9% 58 mL (KEYTRUDA), DISCONTINUED: NaCl 0.9% iv infusion, DISCONTINUED: diphenhydrAMINE 50 mg injection (BENADRYL), DISCONTINUED: hydrocortisone sodium succinate (PF) 100 mg injection (Solu-CORTEF), DISCONTINUED: EPINEPHrine 1 mg/mL (1 mL) 0.3 mg injection, DISCONTINUED: NaCl 0.9% 500 mL (N18.5) CKD (chronic kidney disease), stage V (HCC) (E07.9) Disorder of thyroid (R53.81, R53.83) Malaise and fatigue PAST MEDICAL [...] Cigarettes Quit date: 1970 Years since quittin.1 Passive exposure: Past Smokeless tobacco: Never Vaping Use Vaping Use: Never used Substance Use Topics Alcohol use: No Drug use: No FAMILY HISTORY Problem Relation Age of Onset Asthma Mother other (htn) Mother Asthma Sister Anesthesia Problems No Family History I spent a total of 40 minutes on the date of service which included preparing to see the patient, [id number] patient care, completing clinical documentation, performing a medically appropriate examination, counseling and educating the patient/family/caregiver, ordering medications, tests, or procedures, independently interpreting results (not separately reported), communicating results to the patient/family/caregiver, and care coordination (not separately reported). Caesar Vazquez MD, CPE Hematology and Oncology Services Provided at: [place], [place] Scribe Attestation: This note was scribed by Jessica Pathak on November 29, 2023 under the direction and supervision of Dr. Caesar Vazquez. I attest that all of the information documented is correct to the best of my knowledge. Provider Attestation: I, Caesar Vazquez MD, attest that all information documented by the above scribe is correct, and was supervised by me and under my direction. CC: Yoan Sneed MD [address] [facility] [place] [address] documented in this encounter [facility] 11-29-2023 Instructions Jessica Pathak - 11/29/2023 1:14 PM EST Proceed with pembrolizumab cycle 13 today. Hydration today. Follow up in 3 weeks for continued treatment. Labs same day. See Wayne or Corazon RTC 6 weeks with me Labs same day documented in this encounter [facility] 11-22-2023 Miscellaneous Notes Patient has been rescheduled to 11/29 and notified. Thanks! Edwina Olson Voicemail message received from pt requesting to reschedule his missed appointment w/ Dr Vazquez. Clerical: Please call pt @ [phone] to schedule. Thanks! Margot So RN Pt still in need of f/u appointment. Call placed to pt. No answer. Message left requesting call back. Call placed to pt's spouse. No answer. Message left requesting call back. Margot So RN documented in this encounter [facility] 11-14-2023 Miscellaneous Notes Patient called, saying he had a missed call from us(not sure who called him). Patient stated that he was not going to make his appointments today as he was just discharged from the hospital yesterday and they are having him do a MRI(?). And He stated he will call back to reschedule these appointments. HU Moore documented in this encounter [facility] 10-10-2023 Note [facility] 09-19-2023 Note [facility] 08-29-2023 Note [facility] 08-29-2023 History of Present illness Narrative Images from the original note were not included. NAME: Juan Jose Austin [facility] NO.: [id number] DATE OF SERVICE: August 29, 2023 (Abpia) Some elements in this clinic note that [...] pacemaker was inserted on on 03/18/[address] [facility] [address] Bautista. His shortness of breath [...] he is a poor candidate for chemotherapy, kashia based or otherwise. Surgery would yield him [...] which included preparing to see the patient, [id number] patient care, completing clinical documentation, performing a medically appropriate examination, counseling and educating the patient/family/caregiver, ordering medications, tests, or procedures, independently interpreting results (not separately reported), communicating results to the patient/family/caregiver, and care coordination (not separately reported). Caesar Vazquez MD, CPE Hematology and Oncology Services Provided at: [place], [place] CC: No referring provider defined for this encounter. Yoan Sneed MD [address] [facility] [place] [address] documented in this encounter [facility] 08-29-2023 Instructions Caesar Vazquez MD - 08/29/2023 1:07 PM EST Hold [...] restart his Keytruda. documented in this encounter [facility] 08-23-2023 Note [facility] 08-23-2023 Note [facility] 08-20-2023 Note [facility] Consult Note Reason for visit: S/P PPM hospital follow up Date of Telehealth Visit: 08/20/23 The patient was notified that using 3rd democrat telecommunication application (e.g., [employer]) is not HIPPA compliant and may carry some privacy risks. Yes The visit was conducted [id number] with the use of audio and video technology [email or web address] between patient and provider for a virtual [...] moderate, relieved by rest. He was evaluated [facility] ED and his CBC, BMP, BNP, [...] significantly reduced left-ventr (more content not included)... [facility] 08-08-2023 Miscellaneous Notes FYI: Pt reports having [...] verbalizes understanding. No additional questions noted. Margot So RN documented in this encounter [facility] 07-18-2023 Note [facility] 07-18-2023 Instructions Caesar Vazquez MD - 07/18/2023 1:39 PM EDT Proceed with cycle 9 pembrolizumab today. In 3 weeks to for cycle 10. Labs prior No clinician RTC in 6 weeks prior to C11 Labs every [address] in 5 weeks documented in this encounter [facility] 07-18-2023 History of Present illness Narrative Images from the original note were not included. ONCOLOGY FOLLOW UP July 18, 2023 (Eve) Some elements in this clinic note that are critical to medical decision making have been carefully reviewed and included from a prior clinic note dated: June 27, 2023 (Scott) PCP and other physicians involved in patient's [...] pacemaker was inserted on on 03/18/2023 at [facility] with Dr. Bautista. His shortness [...] he is a poor candidate for chemotherapy, kashia based or otherwise. Surgery would yield him [...] which included preparing to see the patient, [id number] patient care, completing clinical documentation, performing a medically appropriate examination, counseling and educating the patient/family/caregiver, ordering medications, tests, or procedures, independently interpreting results (not separately reported), communicating results to the patient/family/caregiver, and care coordination (not separately reported). Caesar Vazquez MD, CPE Hematology and Oncology Services Provided at: [place], [place] CC: No referring provider defined for this encounter. Yoan Sneed MD [facility] [phone] documented in this encounter [facility] 06-27-2023 Note [facility] 06-27-2023 History of Present illness Narrative ONCOLOGY FOLLOW UP June 27, 2023 (Scott) Some elements in this clinic note that are critical to medical decision making have been carefully reviewed and included from a prior clinic note dated: June 06, 2023. (Dr. Vazquez) PCP and other physicians involved in patient's [...] pacemaker was inserted on on 03/18/2023 at [facility] with Dr. Bautista. His shortness [...] he is a poor candidate for chemotherapy, kashia based or otherwise. Surgery would yield him [...] for cycle 9. Labs prior. Wayne Chavez APRN.[facility] Hematology and Oncology Services Provided at: [facility], [place], [place] I spent a total of 30 minutes on the date of the service which included preparing to see the patient, [id number] patient care, completing clinical documentation, obtaining and/or reviewing separately obtained history, performing a medically appropriate examination, counseling and educating the patient/family/caregiver, ordering medications, tests, or procedures, independently interpreting results (not separately reported), and communicating results to the patient/family/caregiver. documented in this encounter [facility] 06-18-2023 Note [facility] 06-18-2023 History of Present illness Narrative VIRTUAL VISIT PROGRESS NOTE This is a virtual visit using Audio only. It required patient-provider interaction for the medical decision making as documented below. I have communicated my name and active licensure. The patient's identity and physical location were verified at the time of this visit. Either the patient or their legal operations support representative has been informed of the risks [...] Sandy Bhatt MD documented in this encounter [facility] 06-06-2023 Note [facility] 06-06-2023 History of Present illness Narrative Images from the original note were not included. ONCOLOGY FOLLOW UP June 06, 2023 (Eve) Some elements in this clinic [...] pacemaker was inserted on on 03/18/2023 at [facility] with Dr. Bautista. His shortness [...] he is a poor candidate for chemotherapy, kashia based or otherwise. Surgery would yield him [...] which included preparing to see the patient, xstr-hr-ckzs patient care, completing clinical documentation, performing a medically appropriate examination, counseling and educating the patient/family/caregiver, ordering medications, tests, or procedures, and independently interpreting results (not separately reported). Caesar Vazquez MD, CPE Hematology and Oncology Services Provided at: [place], [place] documented in this encounter [facility] 05-31-2023 Miscellaneous Notes Requested Prescriptions Pending Prescriptions Disp Refills tamsulosin (FLOMAX) 0.4 mg 30 capsule 5 Sig: Take 1 capsule by mouth once daily. DAUGHTER STATES PATIENT IS OUT OF PILLS documented in this encounter [facility] 05-31-2023 Note [facility] 05-31-2023 Note [facility] 05-16-2023 Note [facility] 05-16-2023 Instructions Caesar Vazquez MD - 05/16/2023 2:[address] CAP in 1 -2 weeks Reschedule appointment with Dr. Bhatt after CT. Proceed with cycle 6 pembrolizumab today. Follow up in 3 weeks to for cycle 7. Labs prior. Review Scans Hold Lasix for a few days to see if mouth improves. documented in this encounter [facility] 05-16-2023 History of Present illness Narrative Images from the original note were not included. ONCOLOGY FOLLOW UP May 16, 2023 (Eve) Some elements in this clinic note that are critical to medical decision making have been carefully reviewed and included from a prior clinic note dated:April 25, 2023 (Scott) PCP and other physicians involved in patient's [...] pacemaker was inserted on on 03/18/2023 at [facility] with Dr. Bautista. His shortness [...] symptoms weekly. Updated Visit, February 21, 2023: Jua nJose continues to have some degree of dyspnea. [...] he is a poor candidate for chemotherapy, kashia based or otherwise. Surgery would yield him [...] which included preparing to see the patient, kxbt-mr-eozt patient care, completing clinical documentation, performing a medically appropriate examination, counseling and educating the patient/family/caregiver, ordering medications, tests, or procedures, and independently interpreting results (not separately reported). Caesar Vazquez MD, CPE Hematology and Oncology Services Provided at: [place], [place] documented in this encounter [facility] 05-07-2023 Note HNO ID: [id number] Author: Rita Bhatt MD Service: ? Author Type: Physician Type: Progress Notes Filed: 05/25/2023 4:55 PM Note Text: s [facility] 05-07-2023 History of Present illness Narrative s documented in this encounter [facility] 05-06-2023 Note -hx of flutter -not on ac , on aspirin Does not want AC -no flutter since recommended for ablation per documentation -will monitor device for arrhythmia [facility] 05-06-2023 Note -s/p DC PPM -device check stable [facility] 05-06-2023 Note -stable -ct meds [facility] 05-06-2023 Note - NYHA I-2 GDMT: Losartan 50 mg, Toprol-XL 25 mg, Isordil 20 mg twice daily, hydralazine 25 mg 3 times daily, Lasix 20 mg daily, Lipitor 10 mg daily, aspirin 81 mg, amlodipine 10 mg -pending repeat echo, previously echo 04/05 EF 48% [facility] 04-26-2023 Note [facility] Electrophysiology Consult Note Reason for visit: S/P [...] moderate, relieved by rest. He was evaluated [facility] ED and his CBC, BMP, BNP, [...] failure treatment by (more content not included)... [facility] 04-26-2023 Note Review of Systems All other systems reviewed and are negative. [facility] 04-25-2023 Note [facility] 04-25-2023 History of Present illness Narrative Images from the original note were not included. ONCOLOGY FOLLOW UP April 25, 2023 (Scott) Some elements in this clinic note that are critical to medical decision making have been carefully reviewed and included from a prior clinic note dated: April 04, 2023. (Scott) PCP and other physicians involved in patient's [...] pacemaker was inserted on on 03/18/2023 at [facility] with Dr. Bautista. His shortness [...] he is a poor candidate for chemotherapy, kashia based or otherwise. Surgery would yield him [...] to discuss when to restage. Wayne Chavez APRN.CNP Hematology and Oncology Services Provided at: [place], [place] I spent a total of 30 minutes on the date of the service which included preparing to see the patient, vgwq-ys-caei patient care, completing clinical documentation, obtaining and/or reviewing separately obtained history, performing a medically appropriate examination, counseling and educating the patient/family/caregiver, ordering medications, tests, or procedures, independently interpreting results (not separately reported), and communicating results to the patient/family/caregiver. documented in this encounter [facility] 04-04-2023 Note [facility] 04-04-2023 History of Present illness Narrative Images from the original note were not included. ONCOLOGY FOLLOW UP April 04, 2023 (Scott) Some elements in this clinic note that are critical to medical decision making have been carefully reviewed and included from a prior clinic note dated: March 07, 2023. (Dr. Vazquez) PCP and other physicians involved in patient's [...] pacemaker was inserted on on 03/18/2022 at [facility] with Dr. Bautista. His shortness [...] he is a poor candidate for chemotherapy, kashia based or otherwise. Surgery would yield him [...] APRN.CNP Hematology and Oncology Services Provided at: [facility], [place], [place] I spent a total of 30 minutes on the date of the service which included preparing to see the patient, zazm-ik-ztjj patient care, completing clinical documentation, obtaining and/or reviewing separately obtained history, performing a medically appropriate examination, counseling and educating the patient/family/caregiver, ordering medications, tests, or procedures, independently interpreting results (not separately reported), and communicating results to the patient/family/caregiver. documented in this encounter [facility] 03-27-2023 Note Patient seen for wou nd check s/p [employer] pacemaker placement on 03/18/2023. Wound is [...] been scheduled for device and follow-up appointment. [facility] 03-19-2023 Note Hospital Medicine Discharge Summary Final [...] medication deferred to the outpatient follow-up with airplane patrol pilot. Dear Dr. Naren MD, Juan Jose is advised to follow up with you within 1-2 weeks. Follow-up with: Cardiology Scheduled appointments: Future Appointments Date Time Provider Department Center 03/27/2023 9:20 AM JAMA Penaloza 2023 10:00 AM Josesito Villanueva NP [facility] Your medication list START taking these medications [...] Your Medications These medications were sent to [facility] [id number] [facility] [address] [address] [facility] [address] doxycycline 100 mg capsule hydrALAZINE 25 mg [...] and/or family and (more content not included)... 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 Activities of Daily Living Living Arrangement (Current/Prior to Hospitalization) Private residence Discharge Planning Support Systems Spouse/significant other;Children Type of Residence/Post Acute Needs Private residence [facility] 03-19-2023 Note continuing left leg Cardiology Progress [...] -- -- 60 12 96 % -- 03/18/23 1538 144/59 36.7 ???C (98 ???F) Temporal [...] Value Ventricular Rate 60 Atrial Rate 60 SD Interval 192 QRS DURATION 168 QT Interval 474 QTC CALCULATION(BAZETT) 474 P [employer] 30 R-[employer] 5 T Wave [employer] 263 Impression AV dual-paced rhythm Confirmed by Jade JOHNSON, MYRIAM Momin ([id number]) on 03/19/2023 9:57:24 AM Lab Results Component Value Date TROPONINI 0.06 (H) 03/17/2023 No echocardiogram results found for the past 12 months No nuclear medicine results found for the past 12 months Relevant Imaging Results Electrocardiogram, 12-lead AV dual-paced rhythm Confirmed by Jade JOHNSON, MYRIAM Momin (57) on 03/19/2023 9:57:24 AM 03/18/23 TTE [...] degree AV block, LBBB s/p dual chamber [employer] PPM placement. Syncope Compensated HFrEF 55% [...] stable lead thresholds Josesito Villanueva NP [facility] [id number] [facility] 03-19-2023 Note Physical Therapy Physical Therapy Evaluation Patient Name: Juan Jose Austin : 1940 Today's Date: 03/19/2023 Patient is an 82 y./o. male who was scheduled for a pacemaker implantation prior to an unwitnessed syncope episode. Patient was admitted to [facility] on 03/16/2023 and the pacemaker [...] fractured hip last week and is in residential currently. Pt. reported daughter lives nearby and [...] Level of Function Prior Function Level of Union: Independent with ADLs and functional transfers Prior [...] to your side (more content not included)... [facility] 03-19-2023 Note 03/19/23 0954 Admission Assessment Questions Verify insurance with patient [...] link and activate MyChart? No (Status: pending) [facility] 03-18-2023 Note Hospital Medicine Daily Progress Note - 03/18/2023 3:12 PM; Room: [address] [place] [address] Admission: 03/16/2023 10:06 PM; Length of stay: 2 days THE HOSPITALIST TEAM PREFERS TO USE [employer] CH[employer] FOR COMMUNICATION 7AM-7PM. IF I DO NOT RESPOND WITHIN 15 MINUTES, PLEASE PAGE ME/CALL THROUGH THE HYDROCHLORIC AREA SUPERVISOR. FROM 7PM-7AM, PLEASE PAGE [phone](COVR) Code Status: Full Code Discharge Destination: home [...] LDL 84 03/16/2023 No results found for: [id number], IRON, TIBC, C3, C4, KODY, CANCA, ASO, PSA, CEA, CA125, CA199, AFP, CA153 Imaging Electrophysiology procedure Narrative: Images from the original result were not included. DUAL CHAMBER PACEMAKER IMPLANT PROCEDURE NOTE DATE OF PROCEDURE: 03/18/2023 PERFORMING PHYSICIAN: Dr. Jimbo Bautista GLOST KILN PLACER: Dr John Quiroga CONSENT: Patient LOCATION: EP Lab PROCEDURE PERFORMED: 1. Implantation of pacemaker ([employer]) 2. Ultrasound guided venous access INDICATIONS: [...] unwitnessed syncopal episode and was admiited to [facility]. On evaluation, the patient was having heart rates in the 20s to 30s with symptoms and transferred to [facility]. He was started on a dopamine drip for bradycardia and it elevated his heart rates into the 40s. PROCEDURAL DETAILS: (more content not included)... [facility] 03-18-2023 Note Attestation signed by Brandie Michel MD at 03/18/2023 12:51 PM I did not personally examine the patient. I discussed the case with the resident/fellow Dr Blas. Teaching Physician's Revisions: Brandie Michel MD, MPH, [facility], [facility], [facility] Interventional Cardiology Pager Email: [email or web address] Cardiology Progress Note Subjective Subjective: Juan [...] Value Ventricular Rate 39 Atrial Rate 39 SD Interval 342 QRS DURATION 156 QT Interval 504 QTC CALCULATION(BAZETT) 405 P [employer] 17 R-[employer] -84 T Wave [employer] 10 Impression Marked sinus bradycardia with 1st [...] PROCEDURE: 03/18/2023 PERFORMING PHYSICIAN: Dr. Jimbo Bautista GLOST KILN PLACER: Dr John Quiroga CONSENT: Patient LOCATION: EP Lab PROCEDURE PERFORMED: 1. Implantation of pacemaker ([employer]) 2. Ultrasound guided venous access INDICATIONS: [...] unwitnessed syncopal episode and was admiited to [facility]. On evaluation, the patient was having heart rates in the 20s to 30s with symptoms and transferred to [facility]. He was started on a [...] access was o (more content not included)... [facility] 03-18-2023 Note Transport at bedside to take pt down to xray- typically xray is not completed until the AM after pacemaker insertion- Called Dr. Blas head of english- okay to send down now. [facility] 03-18-2023 Note Patient back from EP lab with new pacer and hooked up to monitor- vitals obtained. Patient has a few medications auto held- all from Dr. Blas with cardiology. RN called head of english at this time- continue to hold meds- only giving asa, iron tablet, and flomax at this time. Hold heparin subcutaneous and all other auto held medications- will re-evaluate in the afternoon. RN to follow up. [facility] 03-18-2023 Note DUAL CHAMBER PACEMAK ER IMPLANT PROCEDURE NOTE DATE OF PROCEDURE: 03/18/2023 PERFORMING PHYSICIAN: Dr. Jimbo Bautista GLOST KILN PLACER: Dr John Quiroga CONSENT: Patient LOCATION: EP Lab PROCEDURE PERFORMED: 1. Implantation of pacemaker ([employer]) 2. Ultrasound guided venous access INDICATIONS: [...] unwitnessed syncopal episode and was admiited to [facility]. On evaluation, the patient was having heart rates in the 20s to 30s with symptoms and transferred to [facility]. He was started on a [...] using modified seldinger technique using a 5 [place]er micro-puncture needle on two occasions and 0.35 [...] pocket was created for the device. 9/6 [place] Safesheaths were placed over the wire. An active fixation [employer] pacing lead was then delivered through the SPCC sheath via 9Fsheath to the right ventricle. After confirmation of lead position on orthogonal views (HESTER and CAMEROONIAN) to confirm septal position, the screw was activated, and the lead was placed in the right ventricular mid cavity towards the septum. After confirmation of good sensing parameters, injury pattern and pacing thresholds, 10V pacing was done and no diaphragmatic stimulation was noted. It was then secured in the pocket using three 1-0 Silk sutures. Then an active fixation [employer] lead was delivered through the 6Fsheath to the right atrial appendage. After confirmation of lead position on orthogonal views (HESTER and CAMEROONIAN), the screw was activated. After confirmation of [...] 100mg bid. Jimbo Bautista MD Cardiac Electrophysiology [facility] 03-18-2023 Note Patient: Juan Jose Austin Procedure Information Date/Time: 03/18/23 1500 Procedure: Implant PPM Location: [facility] MANUFACTURING TEAM LEADER 1 / [facility] (Cath) Providers: Jimbo Bautista MD [...] Plan discussed with attending. Additional Equipment Requests [facility] 03-18-2023 Note Patient down to EP l ab for pacemaker at this time. [facility] 03-18-2023 Note RN called daughter a t this time-per EP lab and cardiology- moving up patient first for pacer and coming to grab patient in about a half hour. Daughter states she will make it up as soon as she can. [facility] 03-18-2023 Note RN called cardiology at this time regarding orders for dopamine gtt and patient's HR. Orders are to titrate for BP not for HR. Patient's heart rate this morning has ranged from high 20's to high 30's- averaging around 35 BPM. head of english said do not titrate gtt- keep at 5 mcg/kg/min at this time and are trying to move patient up on the list for a pacer. RN to relay message to patient and to call if moving up in time. [facility] 03-17-2023 Note Hospital Medicine Daily Progress Note - 03/17/2023 10:00 AM; Room: 3129/3129-01 Admission: 03/16/2023 10:06 PM; Length of stay: 1 days THE HOSPITALIST TEAM PREFERS TO USE [place] CHAT FOR COMMUNICATION 7AM-7PM. IF I DO NOT RESPOND WITHIN 15 MINUTES, PLEASE PAGE ME/CALL THROUGH THE HYDROCHLORIC AREA SUPERVISOR. FROM 7PM-7AM, PLEASE PAGE [phone](COVR) Code Status: Full Code Discharge Destination: home [...] LDL 84 03/16/2023 No results found for: [id number], IRON, TIBC, C3, C4, KODY, CANCA, ASO, [...] Electronically signed: Jalen Sung. Discharge Planning Signed iMguel San MD Hospital Medicine 03/17/2023 10:00 AM [facility] 03-17-2023 Note . Hospital Medicine History and Physical 03/16/2023 11:16 PM THE HOSPITALIST TEAM PREFERS TO USE [employer] FOR COMMUNICATION 7AM-7PM. IF I DO NOT RESPOND WITHIN 15 MINUTES, PLEASE PAGE ME/CALL THROUGH THE HYDROCHLORIC AREA SUPERVISOR. FROM 7PM-7AM, PLEASE PAGE [phone](COVR) Chief Complaint No chief complaint on file. [...] syncopal episod CKD. 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 Pa (more content not included)... [facility] 03-15-[address] Andreina hassan and he recommended perm Pacemaker- orders sent and d/w pt and daughter= provided pt education pamphlet for Pacemaker that reviewed indications, risks vs benefits of procedure and pt voiced understanding and is agreeable with proceeding with PPM [facility] 03-15-2023 Note Hypertension is cont rolled Continue med regime [facility] 03-15-2023 Note Noted bradycardia, w ith 1st AV block, 2:1 AV block, NSVT 3 and 5 beat run with syncopal episode and near syncopal episodes. Pt is unsure if he has stopped toprol- therefore d/w them to stop Toprol. D/W Dr Bautista and plan for perm pacemaker implant MONTRELL in light of syncope [facility] 03-15-2023 Note UTP CARDIOLOGY PROGR ESS NOTE [...] me. He was evaluated in ED at [facility], and Dr Sneed had a 7 [...] moderate, relieved by rest. He was evaluated [facility] ED and his CBC, BMP, BNP, [...] At last visi (more content not included)... [facility] 03-15-2023 Note Patient here for [facility] for syncopal event. He did wear [...] All other systems reviewed and are negative. 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 Other 05-25-2023 [facility] Miscellaneous Notes* Telephone Encounter - Margot [...] check symptoms. Thank you documented in this encounterHol[facility]04-[facility]-2023 NoteHNO ID: [id number] Author: Padmini Mike RN Service: ? Author Type: Registered Nurse Type: Progress Notes Filed: 01/31/2023 10:35 AM Note Text: No labs today per Dr. Vazquez. Padmini Mike RNOhio [facility] History of Present illness Narrative* Padmini Mike RN - 01/31/2023 9:22 AM EDT No labs today per Dr. Vazquez. Padmini Mike RN documented in this [facility]04-20-2023 Instructions* Patient Instructions* Caesar Vazquez MD - 01/31/2023 8:50 AM EDT Resume C2 pembrolizumab today. RTC in 3 weeks Ask Ms. So to call next week to heck symptoms documented in this encounterHol[facility] History of Present illness Narrative* Caesar Vazquez MD - 01/31/2023 8:44 AM EDT Images from the original note were not included. ONCOLOGY FOLLOW UP January 31, 2023 (Eve) Some elements in this clinic note that are critical to medical decision making have been carefully reviewed and included from a prior clinic note dated: January 23, 2023 (Scott) PCP and other physicians involved in patient's [...] he is a poor candidate for chemotherapy, kashia based or otherwise. Surgery would yield him [...] which included preparing to see the patient, ndjx-cf-gjlu patient care, completing clinical documentation, performing a medically appropriate examination, counseling and educating the patient/family/caregiver, ordering medications, tests, or p rocedures, communicating with other HCPs (not separately reported), independently interpreting results (not separately reported), and communicating results to the patient/family/caregiver. Caesar Vazquez MD, CPE Hematology and Oncology Services Provided at: [place], [place] documented in [facility] Miscellaneous Notes * Telephone Encounter - Margot [...] protocol. Margot So RN documented in [facility]Hol[facility] Instructions* Patient Instructions* Caesar Vazquez MD - 01/02/2023 3:18 PM EDT Start Keytruda q 3 weeks Labs same day. RTC 3 weeks with Wayne / Corazon Owens documented in this encounterHolzer Hospital03-[facility]23 History of Present illness Narrative* Caesar Vazquez MD - 01/02/2023 3:11 PM EDT Images [...] he is a poor candidate for chemotherapy, kashia based or otherwise. Surgery would yield him [...] which included preparing to see the patient, ktqc-mj-peox patient care, completing clinical documentation, obtaining and/or reviewing separately obtained history, counseling and educating the patient/family/caregiver, ordering medications, edin ts, or procedures, independently interpreting results (not separately reported), and communicating results to the patient/family/caregiver. Caesar Vazquez MD, CPE Hematology and Oncology Services Provided at: [place], [place] documented in this encounterHol[facility]03-[facility]23 Nurse Note* Liberty Hayes - 01/02/2023 3:08 PM EDT Pt requested recent blood work faxed to Dr. Sneed. Faxed via [employer]. Liberty Hayes documented in this encounterHolzer Hospital03-20-2023 [facility] History of Present illness Narrative* Margot So [...] N/A Margot So RN documented in this encounterHolzer Hospital03-08-2023 Miscellaneous Notes* Telephone Encounter - Jimbo Alarcon MD - 12/19/2022 8:54 AM EST Patient cancelled Nephrology appt for 12/20/22. Called patient, plan to get labs in the coming days to ensure continued improvement of Cr. documented in this encounterHolzer Hospital03-06-2023 Miscellaneous Notes* Telephone Encounter - Lauren eLe Sec - 12/17/2022 11:21 AM EST Called patient and r/s to next week * Telephone Encounter - Lauren Mckeon RN - 12/17/2022 11:15 AM EST Pt's caris testing has not been resulted yet. Please call pt and reschedule to next week per Dr Moncada's request. Thanks Lauren Mckeon RN documented in this encounterHolzer Hospital02-22-2023 Hospital Discharge instructions Patient Education 12/05/2022 10:40:17 [...] cells. Follow these instructions at home: Take nyww-ptd-okprdnd and prescription medicines only as told by [...] is important. Where to find more information [place] [employer]: www.cancer.org National Cancer [place] (NCI): www.cancer.gov Contact a health care provider [...] 10/02/2004 Document Revised: 09/12/2018 Document Reviewed: 09/03/2017 [employer] Patient Education 2020 [employer]. Follow Up Care 11/23/2022 15:08:18 With:JENNIFER FOUNTAIN, Jian Lee, URL Address: [facility] [address] , [place] [address]- When: Unknown [facility] [id number] Instructions* Patient Instructions* Caesar Vazquez MD - 11/26/2022 9:29 AM EST 1. Virtual visit 3 weeks after discussion with Dr. Bhatt and consideration of molecular studies. 2. AP Mol. documented in this encounterHolzer Hospital02-13-2023 History of Present illness Narrative* Caesar Vazquez MD - 11/26/2022 8:53 AM EST Images [...] need treatment assessment. Will obtain NGS. Caesar Vazquez MD, CPE Hematology and Oncology Services Provided at: [place], [place] I spent a total of 40 minutes on the date of the service which included preparing to see the patient, [id number] patient care, completing clinical documentation, obtaining and/or reviewing separately obtained history, performing a medically appropriate examination, counseling and educating the pat ient/family/caregiver, ordering medications, tests, or procedures, independently interpreting results (not separately reported) and communicating results to the patient/family/caregiver. documented [facility] Nurse Note* Jami Hernandez MA - 11/26/2022 8:47 AM EST Patient was recently [facility] the [facility]), he will havehis ureteral stent removed locally by Dr. Rodriguez. 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 We could [...] complete. Rita Bhatt MD documented in this encounterHolzer Hospital11-30-2022 History of Present illness Narrative* Nicholas Saenz MD - 09/12/2022 2:45 PM EST [facility] PRE-OP NOTE Patient [...] surgery pending LABS, IMPACT documented in this encounterHolzer Hospital11-30-2022 History and physical note * Fatimah Salcedo [...] fevers. Neuro: No history of TIA's, stroke, FEED ELEVATOR WORKER tumor, impaired sensorium, hemiplegia, paraplegia or quadraplegia. No neurological symptoms or problems. Respiratory: No history of current cough or dyspnea, or pneumonia in the past 6 weeks. No history of respiratory/pulmonary symptoms or problems. Cardiovascular: Negative for Recent [place], Angina, Arrhythmia, CAD, Chest Pain, PVD, Valvular [...] BLOCK ABNORMAL ECG ECHO 02/27/22 scanned into [employer] Assessment/Plan Hypertensive heart disease with heart failure (HCC) -BP elevated in office 171/70, 170/72, patient reports he has not taken any of his medications yet today -denies cardiac symptoms -EF 55% on echo 02/2022 scanned into [employer] -on hydralazine, losartan, isosorbide dinitrate, and Jardiance [...] service. Requested most recent office note from airplane patrol pilot, Dr. Mason Castaneda. Planned Anesthetic: General Instructions Given to Patient: Instructions located in the after visit summary. Patient given verbal and written preop instructions and voices comprehension and compliance. SIGNATURE: Fatimah Salcedo PA-C PATIENT NAME: Juan Jose Austin DATE: September 12, 2022 TIME: 11:37 AM documented in this encounterHolzer Hospital11-30-2022 Instructions* Patient Instructions* Fatimah Salcedo PA-C - 09/12/2022 11:21 AM EST PATIENT PREOPERATIVE INSTRUCTIONS Rita Bhatt MD has scheduled you for your procedure at this surgery center: [facility] [place] Scheduling Office: [phone] --[address] [place] [address]. Please read below carefully for your personalized [...] Procedures: - YOU MUST HAVE A RESPONSIBLE CLAM BED LABORER TAKE YOU HOME. A SUPERVISOR ENGINES ROAD OR FORENSIC STRUCTURAL ENGINEER CANNOT BE MADE A RESPONSIBLE CLAM BED LABORER. - We recommend that a responsible person [...] call the Saturday before. Your surgeon s spares scheduler will tell you what time to call the office. - If you have not reached the departmental spares scheduler by 5 P.M., call [phone] after 5 P.M. the day before your surgery. Please be aware that emergency situations arise, which may delay or change your surgical time. If this happens, we will notify you as soon as possible and regret any inconvenience. If you already have an Advance Directive, please fax a copy to [phone] or email to for it to be [...] day. 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 Other 06-13-2022 History of Present illness Narrative* Jimmy Tejada PA-C - 03/26/2022 5:41 PM EDT This Team Access Model visit is a virtual encounter. It required patient- provider interaction for the medical decision making as documented below. Chief complaint: Preop teaching [facility] PRE-OP NOTE Juan Jose Austin is a 81 year old male. Pre-op Date: March 26, 2022 Date of Procedure: 03/28/22 Does the patient have an active COVID-19 test in Epic? N/A Procedure/Surgery: LASER CYSTOURETHROSCOPY W/ URETEROSCOPY AND/OR PYELOSCOPY W/ LITHOTRIPSY HOLMIUM- right Diagnosis: Urothelial carcinoma Primary Surgeon: MD Nova, Rita There were no vitals taken for this [...] minutes, total clinic visit 20 minutes Jimmy O'Chapito, PA-C documented in this encounterHolzer Hospital05-31-2022 History of Present illness Narrative* Rita Bhatt MD - 03/13/2022 2:10 PM EDT VIRTUAL VISIT PROGRESS NOTE This is a virtual visit using [employer] video visit. It required patient-provider interaction for [...] 1 tablet by mouth once daily. Fish Oil-[place]-3 Fatty Acids (FISH OIL) 300-1,000 mg cap [...] the date of the service which included [id number]-qs-[id number] patient care, completing clinical documentation, obtaining and/or reviewing separately obtained history and counseling and educating the patient/family/caregiver Scribe Attestation: By signing my name below, IGely, attest that this documentation has been prepared underthe direction and in the presence of Dr. Rita Bhatt MD. Electronically signed: Wendy Ahn, March 13, 2022 2:39 PM IRita MD, personally performed the services described in this documentation. All medical record entries made by the scribe were at my direction and in my presence. I have reviewed the chart and discharge instructions (if applicable) and agree that the record reflects my personal performance and is accurate and complete. Rita Bhatt MD documented in this encounterHolzer Hospital05-26-2022 Evaluation note* Encounter Date Diagnosis Assessment Notes Treatment Notes Treatment Clinical Notes February, Left sided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 (ICD-10 - K51.50) PATIENT TO CONTINUE ON THE MEDICATION DIRECTED. February, Malignant neoplasm of right kidney (ICD-10 - C64.1) [employer] Other 05-23-2022 History of Present illness Narrative* [...] which included preparing to see the patient, qzet-ii-motf patient care, completing clinical documentation, obtaining and/or reviewing separately obtained history, performing a medically appropriate examination, counseling and educating the pat ient/family/caregiver, ordering medications, tests, or procedures, independently interpreting results (not separately reported) and communicating results to the patient/family/caregiver. documented in this encounterHolzer Hospital05-09-2022 History of Present illness Narrative* Corazon Maxwell [...] weeks. Corazon Maxwell PA-C documented in this encounterHolzer Hospital05-02-2022 History of Present illness Narrative* Soren Perea [...] which included preparing to see the patient, jrhx-bq-avvl patient care, completing clinical documentation, obtaining and/or reviewing separately obtained history, performing a medically appropriate examination, counseling and educating the pat ient/family/caregiver, ordering medications, tests, or procedures, independently interpreting results (not separately reported) and communicating results to the patient/family/caregiver. documented in this encounterCleveland [id number] History of Present illness Narrative* Soren Perea [...] which included preparing to see the patient, [id number] patient care, completing clinical documentation, obtaining and/or reviewing separately obtained history, performing a medically appropriate examination, counseling and educating the pat ient/family/caregiver, ordering medications, tests, or procedures, independently interpreting results (not separately reported) and communicating results to the patient/family/caregiver. documented in this encounterHolzer Hospital04-11-2022 History of Present illness Narrative* Belia Martínez RN - 01/22/2022 1:27 PM EDT . documented in this encounterHolzer Hospital04-04-2022 History of Present illness Narrative* Irma Ariza RN - 01/15/2022 1:38 PM EDT . documented in this encounterHolzer Hospital04-04-2022 History of Present illness Narrative* Corazon Maxwell [...] 8. Corazon Maxwell PA-C documented in this encounterHolzer Hospital03-28-2022 History of Present illness Narrative* Soren Perea [...] Blood work today shows platelet count of [id number]. I will hold treatment today and continue with cycle 3 day 1 in a week. The plan is to repeat endoscopy evaluation after 3-6 cycles of chemotherapy based on tolerance. Soren Perea MD I spent a total of 20 minutes on the date of the service which included preparing to see the patient, oxux-ll-shms patient care, completing clinical documentation, obtaining and/or reviewing separately obtained history, performing a medically appropriate examination, counseling and educating the pat ient/family/caregiver, ordering medications, tests, or procedures, independently interpreting results (not separately reported) and communicating results to the patient/family/caregiver. documented in this encounterHolzer Hospital09-25-2020 History of Present illness Narrative* Linda Piña (Ct), CT - 07/08/2020 11:20 AM EDT Radiology Service [...] 2020 TIME: 11:15 AM documented in this encounterHolzer HospitalEvaluation + Plan note Future Appointments Appointment Date:12/18/2022 01:00:00 PM Scheduled Provider:Jian RODRIGUEZ MD Location:[facility] Appointment Type:URO Procedure 15 min [facility] Evaluation note* Diagnosis Malignant neoplasm of ureter, unspecified laterality (HCC)- Primary documented in this encounter [facility] note* Diagnosis Malignant neoplasm of ureter, unspecified laterality (HCC)- Primary documented in this encounter [facility] note* Diagnosis Malignant neoplasm of ureter, unspecified laterality (HCC)- Primary documented in this encounter [facility] note* Diagnosis Malignant neoplasm of ureter, unspecified laterality (HCC)- Primary documented in this encounter [facility] note* Diagnosis Malignant neoplasm of ureter, unspecified laterality (HCC)- Primary documented in this encounter [facility] note* Diagnosis Malignant neoplasm of ureter, unspecified laterality (HCC)- Primary documented in this encounter [facility] note* Diagnosis Malignant neoplasm of ureter, unspecified laterality (HCC)- Primary documented in this encounter [facility] note* Diagnosis Malignant neoplasm of ureter, unspecified laterality (HCC)- Primary [facility]* Diagnosis Urothelial carcinoma (HCC)- Primary Other malignant neoplasm without specification of site Urothelial carcinoma (HCC) Other malignant neoplasm without specification of site documented in this encounter [facility] note* Diagnosis Urothelial carcinoma (HCC)- Primary Other malignant neoplasm without specification of site Urothelial carcinoma (HCC) Other malignant neoplasm without specification of site documented in this encounter [facility] note* Diagnosis 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, unspecified laterality (HCC)- Primary Acute cystitis without hematuria Acute cystitis documented [facility]* Diagnosis Urothelial carcinoma (HCC)- Primary Other malignant neoplasm without specification of site Urothelial carcinoma (HCC) Other malignant neoplasm without specification of site documented in this encounter [facility] note* Diagnosis Pre-op evaluation- Primary Preoperative examination, unspecified Hypertensive heart disease with heart failure (HCC) 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 Gastro-esophageal reflux disease without esophagitis Esophageal reflux Ulcerative pancolitis (HCC) [place]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 Stage 3 chronic kidney disease, unspecified whether stage 3a or 3b CKD (HCC) 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, 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, except renal pelvis (HCC) Malignant neoplasm of kidney, except pelvis Malignant neoplasm of urinary bladder, unspecified site (HCC) documented [facility] this [facility]* Diagnosis Urothelial carcinoma (HCC)- Primary Other malignant neoplasm without specification of site Malignant neoplasm of right kidney, except renal pelvis (HCC) Malignant neoplasm of kidney, except pelvis Malignant neoplasm of urinary bladder, unspecified site (HCC) [facility] this [facility]* Diagnosis Screening for genitourinary condition Screening for other and unspecified genitourinary condition Malignant neoplasm of right kidney, except renal pelvis (HCC) Malignant neoplasm of kidney, except pelvis Malignant neoplasm of urinary bladder, unspecified site (HCC) documented [facility] this encounter [facility]* Diagnosis 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, unspecified laterality (HCC)- Primary documented in this encounter [facility] noteNo Localize [employer] Other Evaluation note* Diagnosis CELSO (acute kidney injury) (HCC)- Primary Acute kidney failure, unspecified documented in this encounter [facility] note* Diagnosis 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 Malignant neoplasm of other specified sites of bladder [facility] this [facility]* Diagnosis 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 Malignant neoplasm of other specified sites of bladder Malignant neoplasm of right kidney, except renal pelvis (HCC) Malignant neoplasm of kidney, except pelvis Malignant neoplasm of ureter, unspecified laterality (HCC) [facility]* Diagnosis 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 Malignant neoplasm of other specified sites of bladder Malignant neoplasm of ureter, unspecified laterality (HCC) [facility] this [facility]* Diagnosis 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 Malignant neoplasm of other specified sites of bladder [facility]* Diagnosis 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 Malignant neoplasm of other specified sites of bladder Malignant neoplasm of right kidney, except renal pelvis (HCC) Malignant neoplasm of kidney, except pelvis Malignant neoplasm of ureter, unspecified laterality (HCC) [facility]* Diagnosis 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 Malignant neoplasm of other specified sites of bladder [facility] this [facility]* Diagnosis Malignant neoplasm of overlapping sites [...] and signs [facility] [...] laterality (HCC) [facility] Diagnosis Malignant neoplasm of overlapping sites [...] malaise and fatigue documented [facility] this [facility]* Diagnosis 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 Malignant neoplasm of other specified sites of bladder Malignant neoplasm of right kidney, except renal pelvis (HCC) Malignant neoplasm of kidney, except pelvis Malignant neoplasm of ureter, unspecified laterality (HCC) [facility] this [facility]* Diagnosis 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 Malignant neoplasm of other specified sites of bladder documented in this encounter [facility] note* Diagnosis Urothelial cancer (HCC)- Primary Malignant neoplasm of other specified sites of urinary organs documented [facility] this [facility]* Diagnosis 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 Malignant neoplasm of other specified sites of bladder Malignant neoplasm of ureter, unspecified laterality (HCC) Malaise and fatigue Other malaise and fatigue documented in this encounter [facility]* Diagnosis 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 Malignant neoplasm of other specified sites of bladder Malignant neoplasm of right kidney, except renal pelvis (HCC) Malignant neoplasm of kidney, except pelvis Malignant neoplasm of ureter, unspecified laterality (HCC) [facility] this [facility]* Diagnosis 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 Malignant neoplasm of other specified sites of bladder Malignant neoplasm of right kidney, except renal pelvis (HCC) Malignant neoplasm of kidney, except pelvis Malignant neoplasm of ureter, unspecified laterality (HCC) [facility] this [facility]* Diagnosis 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 Malignant neoplasm of other specified sites of bladder CKD (chronic kidney disease), stage V (HCC) Chronic kidney disease, Stage V Disorder of thyroid Unspecified disorder of thyroid Malaise and fatigue Other malaise and fatigue documented [facility] this [facility]* Diagnosis 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 Malignant neoplasm of other specified sites of bladder CKD (chronic kidney disease), stage V (HCC) Chronic kidney disease, Stage V Abnormal weight loss Loss of weight Malignant neoplasm of urinary bladder, unspecified site (HCC) documented in this encounter [facility] Narrative - Reported* Type Description Date Medical History colitis Medical History hyperlipidemia Medical History HTN Medical History KIDNEY CANCER Surgical History KIDNEY REMOVED [employer] Other History general Narrative - Reported* Type Description Date Medical History colitis Medical History hyperlipidemia Medical History HTN Medical History KIDNEY CANCER Surgical History KIDNEY REMOVED Hospitalization History No Hospitalization histo ry information [employer] Other Hospital course Narrative No data available for this section [facility] [employer] Progress note No data available for this section [facility] Cristel Texere Reason for referral (narrative)* Outpatient Procedure (Routine) - Pending Review Specialty Diagnoses / Procedures Referred By Contac t Referred To Contact [facility] Diagnoses 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, unspecified laterality (HCC) Procedures ECG COMPLETE ECG ROUTINE ECG W/LEAST 12 LDS W/I&R Rita Bhatt MD [address] [place] [address] [facility] [place] [address] [place] [address] Referral ID Status Reason Start Date Expiration Date Visits Requested Visits Authorized [id number] Pending Review Auto-Generat ed Referral 03/13/2022 03/13/2023 1 1 [facility] for referral (narrative)* Outpatient Procedure (Routine) - Closed Specialty Diagnoses / Procedures Referred By Contac t Referred To Contact [facility] Diagnoses Pre-op evaluation Procedures ECG COMPLETE ECG ROUTINE ECG W/LEAST 12 LDS W/I&R Fatimah Salcedo PA-C [address] [place] [address] [place] [id number] [place] [address] Referral ID Status Reason Start Date Expiration Date V isits Requested Visits Authorized [id number] Closed Auto-Generate d Referral 09/12/2022 09/12/2023 1 1 [facility] Summary Purpose Family History No Family History Records FoundNo Family History Records FoundNo Family History Records FoundNo Family History Records FoundNo Family History Records FoundNo Family History Records FoundNo Family History Records Found Advance Directives No Advanced Directives Records FoundDocuments on File Type Date Recorded Patient Supervisor Backfilling Expl anation Advance Directive(s) 11/01/2021 2:32 PM Advance Directive(s) 10/28/2019 10:37 AM Advance Directive(s) 09/30/2019 10:07 AM Advance Directive(s) 09/15/2019 2:16 PM Advance Directive(s) 08/11/2019 11:16 AM Advance Directive(s) 08/11/2019 11:21 AM Documents on File Type Date Recorded Patient Supervisor Backfilling Expl anation Advance Directive(s) 11/01/2021 2:32 PM Advance Directive(s) 10/28/2019 10:37 AM Advance Directive(s) 09/30/2019 10:07 AM Advance Directive(s) 09/15/2019 2:16 PM Advance Directive(s) 08/11/2019 11:16 AM Advance Directive(s) 08/11/2019 11:21 AM Documents on File Type Date Recorded Patient Supervisor Backfilling Expl anation Advance Directive(s) 03/14/2022 4:48 PM Advance Directive(s) 11/01/2021 2:32 PM Advance Directive(s) 10/28/2019 10:37 AM Advance Directive(s) 09/30/2019 10:07 AM Advance Directive(s) 09/15/2019 2:16 PM Advance Directive(s) 08/11/2019 11:16 AM Advance Directive(s) 08/11/2019 11:21 AM Documents on File Type Date Recorded Patient Supervisor Backfilling Expl anation Advance Directive(s) 03/14/2022 4:48 PM Advance Directive(s) 11/01/2021 2:32 PM Advance Directive(s) 10/28/2019 10:37 AM Advance Directive(s) 09/30/2019 10:07 AM Advance Directive(s) 09/15/2019 2:16 PM Advance Directive(s) 08/11/2019 11:16 AM Advance Directive(s) 08/11/2019 11:21 AM Documents on File Type Date Recorded Patient Supervisor Backfilling Expl anation Advance Directive(s) 05/04/2022 1:37 PM Advance Directive(s) 03/14/2022 4:48 PM Advance Directive(s) 11/01/2021 2:32 PM Advance Directive(s) 10/28/2019 10:37 AM Advance Directive(s) 09/30/2019 10:07 AM Advance Directive(s) 09/15/2019 2:16 PM Advance Directive(s) 08/11/2019 11:16 AM Advance Directive(s) 08/11/2019 11:21 AM Documents on File Type Date Recorded Patient Supervisor Backfilling Expl anation Advance Directive(s) 08/11/2019 11:21 AM Documents on File Type Date Recorded Patient Supervisor Backfilling Expl anation Advance Directive(s) 08/11/2019 11:21 AM [...] over 30 Minutes, ONCE, 1 dose, On Sat01/31/23 at 0930, EXP:L 01/31/23 1515 RT Administer [...] dose, On Eusebia 05/16/23 at 1430, EXP: 05/16/232029 RT Administer with 0.2 micron filter. New Bag/Syringe/Bottle 05/16/2023 2:40 PM EDT 200 mg Inactive Administered Medications - up to 3 most recent administrations Medication Order MAR Action Action Date Dose Rate Site pembrolizumab 200 mg in NaCl 0.9% 66 mL (KEYTRUDA) 200 mg, INTRAVENOUS, Administer over 30 Minutes, ONCE, 1 dose, On Eusebia 06/06/23 at 1430, EXP: 06/06/232029 RT Administer with 0.2 micron filter. New [...] IVCON DIAGNOSTIC COMPUTED TOMOGRAPHY THORAX W/CONTRAST Caesar Vazquez MD [address] [place] [address] [place] [address] Ct Imaging Referral ID Status Reason Start Date Expiration Date Visits Requested Visits Authorized [id number] Authorized Auto-Generat ed Referral 05/16/2023 06/14/2024 1 1 Specialty Diagnoses / Procedures Referred By Contac t Referred To Contact CT IMAGING Diagnoses Malignant 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) Procedures CT ABD/PEL W IVCON CT ABD & PELVIS W/CONTRAST Caesar Vazquez MD [address] [place] [address] [place] [address] Ct Imaging Referral ID Status Reason Start Date Expiration Date Visits Requested Visits Authorized [id number] Authorized Auto-Generat ed Referral 05/16/2023 06/14/2024 1 1 Additional Source Comments (unrecognized sect ion and content) No Status Records FoundNo Status Records FoundNo Status Records FoundNo Status Records FoundNo Status Records FoundNo Status Records FoundNo Status Records Found INFORMATION SOURCE (unrecogn ized section and content) DATE CREATED AUTHOR 04/30/2018 [facility] DATE CREATED AUTHOR AUTHOR'S ORGANIZ ATION 03/06/2019 [facility] DATE CREATED AUTHOR AUTHOR'S ORGANIZ ATION 03/24/[address] [facility] DATE CREATED AUTHOR AUTHOR'S ORGANIZ ATION 04/27/2023 [facility] DATE CREATED AUTHOR AUTHOR'S ORGANIZ ATION 11/03/2023 [facility] DATE CREATED AUTHOR AUTHOR'S ORGANIZ ATION 12/25/2023 [facility] DATE CREATED AUTHOR AUTHOR'S ORGANIZ ATION 12/26/2023 [facility] Source Comments (unrecognize d section and content) In the event this informatio n is protected by the Federal Confidentiality of Alcohol and Drug Abuse Patient Records regulations: The Federal rules restrict any use of the information to criminally investigate or prosecute any alcohol or drug abuse patient.[facility] HospitalIn the event this information is protected by the Federal Confidentiality of Alcohol and Drug Abuse Patient Records regulations: The Federal rules restrict any use of the information to criminally investigate or prosecute any alcohol or drug abuse patient.[facility] HospitalIn the event this information is protected by the Federal Confidentiality of Alcohol and Drug Abuse Patient Records regulations: The Federal rules restrict any use of the information to criminally investigate or prosecute any alcohol or drug abuse patient.[facility] HospitalIn the event this information is protected by the Federal Confidentiality of Alcohol and Drug Abuse Patient Records regulations: The Federal rules restrict any use of the information to criminally investigate or prosecute any alcohol or drug abuse patient.[facility] HospitalIn the event this information is protected by the Federal Confidentiality of Alcohol and Drug Abuse Patient Records regulations: The Federal rules restrict any use of the information to criminally investigate or prosecute any alcohol or drug abuse patient.[facility] HospitalIn the event this information is protected by the Federal Confidentiality of Alcohol and Drug Abuse Patient Records regulations: The Federal rules restrict any use of the information to criminally investigate or prosecute any alcohol or drug abuse patient.[facility] HospitalIn the event this information is protected by the Federal Confidentiality of Alcohol and Drug Abuse Patient Records regulations: The Federal rules restrict any use of the information to criminally investigate or prosecute any alcohol or drug abuse patient.[facility] HospitalIn the event this information is protected by the Federal Confidentiality of Alcohol and Drug Abuse Patient Records regulations: The Federal rules restrict any use of the information to criminally investigate or prosecute any alcohol or drug abuse patient.[facility] HospitalIn the event this information is protected by the Federal Confidentiality of Alcohol and Drug Abuse Patient Records regulations: The Federal rules restrict any use of the information to criminally investigate or prosecute any alcohol or drug abuse patient.[facility] HospitalIn the event this information is protected by the Federal Confidentiality of Alcohol and Drug Abuse Patient Records regulations: The Federal rules restrict any use of the information to criminally investigate or prosecute any alcohol or drug abuse patient.[facility] HospitalIn the event this information is protected by the Federal Confidentiality of Alcohol and Drug Abuse Patient Records regulations: The Federal rules restrict any use of the information to criminally investigate or prosecute any alcohol or drug abuse patient.[facility] HospitalIn the event this information is protected by the Federal Confidentiality of Alcohol and Drug Abuse Patient Records regulations: The Federal rules restrict any use of the information to criminally investigate or prosecute any alcohol or drug abuse patient.[facility] HospitalIn the event this information is protected by the Federal Confidentiality of Alcohol and Drug Abuse Patient Records regulations: The Federal rules restrict any use of the information to criminally investigate or prosecute any alcohol or drug abuse patient.[facility] HospitalIn the event this information is protected by the Federal Confidentiality of Alcohol and Drug Abuse Patient Records regulations: The Federal rules restrict any use of the information to criminally investigate or prosecute any alcohol or drug abuse patient.[facility] HospitalIn the event this information is protected by the Federal Confidentiality of Alcohol and Drug Abuse Patient Records regulations: The Federal rules restrict any use of the information to criminally investigate or prosecute any alcohol or drug abuse patient.[facility] HospitalIn the event this information is protected by the Federal Confidentiality of Alcohol and Drug Abuse Patient Records regulations: The Federal rules restrict any use of the information to criminally investigate or prosecute any alcohol or drug abuse patient.[facility] HospitalIn the event this information is protected by the Federal Confidentiality of Alcohol and Drug Abuse Patient Records regulations: The Federal rules restrict any use of the information to criminally investigate or prosecute any alcohol or drug abuse patient.[facility] HospitalIn the event this information is protected by the Federal Confidentiality of Alcohol and Drug Abuse Patient Records regulations: The Federal rules restrict any use of the information to criminally investigate or prosecute any alcohol or drug abuse patient.[facility] HospitalIn the event this information is protected by the Federal Confidentiality of Alcohol and Drug Abuse Patient Records regulations: The Federal rules restrict any use of the information to criminally investigate or prosecute any alcohol or drug abuse patient.[facility] HospitalIn the event this information is protected by the Federal Confidentiality of Alcohol and Drug Abuse Patient Records regulations: The Federal rules restrict any use of the information to criminally investigate or prosecute any alcohol or drug abuse patient.[facility] HospitalIn the event this information is protected by the Federal Confidentiality of Alcohol and Drug Abuse Patient Records regulations: The Federal rules restrict any use of the information to criminally investigate or prosecute any alcohol or drug abuse patient.[facility] HospitalIn the event this information is protected by the Federal Confidentiality of Alcohol and Drug Abuse Patient Records regulations: The Federal rules restrict any use of the information to criminally investigate or prosecute any alcohol or drug abuse patient.[facility] HospitalIn the event this information is protected by the Federal Confidentiality of Alcohol and Drug Abuse Patient Records regulations: The Federal rules restrict any use of the information to criminally investigate or prosecute any alcohol or drug abuse patient.[facility] HospitalIn the event this information is protected by the Federal Confidentiality of Alcohol and Drug Abuse Patient Records regulations: The Federal rules restrict any use of the information to criminally investigate or prosecute any alcohol or drug abuse patient.[facility] the event this information is protected by the Federal Confidentiality of Alcohol and Drug Abuse Patient Records regulations: The Federal rules restrict any use of the information to criminally investigate or prosecute any alcohol or drug abuse patient.[facility] HospitalIn the event this information is protected by the Federal Confidentiality of Alcohol and Drug Abuse Patient Records regulations: The Federal rules restrict any use of the information to criminally investigate or prosecute any alcohol or drug abuse patient.[facility] HospitalIn the event this information is protected by the Federal Confidentiality of Alcohol and Drug Abuse Patient Records regulations: The Federal rules restrict any use of the information to criminally investigate or prosecute any alcohol or drug abuse patient.[facility] HospitalIn the event this information is protected by the Federal Confidentiality of Alcohol and Drug Abuse Patient Records regulations: The Federal rules restrict any use of the information to criminally investigate or prosecute any alcohol or drug abuse patient.[facility] HospitalIn the event this information is protected by the Federal Confidentiality of Alcohol and Drug Abuse Patient Records regulations: The Federal rules restrict any use of the information to criminally investigate or prosecute any alcohol or drug abuse patient.[facility] HospitalIn the event this information is protected by the Federal Confidentiality of Alcohol and Drug Abuse Patient Records regulations: The Federal rules restrict any use of the information to criminally investigate or prosecute any alcohol or drug abuse patient.[facility] HospitalIn the event this information is protected by the Federal Confidentiality of Alcohol and Drug Abuse Patient Records regulations: The Federal rules restrict any use of the information to criminally investigate or prosecute any alcohol or drug abuse patient.[facility] HospitalIn the event this information is protected by the Federal Confidentiality of Alcohol and Drug Abuse Patient Records regulations: The Federal rules restrict any use of the information to criminally investigate or prosecute any alcohol or drug abuse patient.[facility] HospitalIn the event this information is protected by the Federal Confidentiality of Alcohol and Drug Abuse Patient Records regulations: The Federal rules restrict any use of the information to criminally investigate or prosecute any alcohol or drug abuse patient.[facility] HospitalIn the event this information is protected by the Federal Confidentiality of Alcohol and Drug Abuse Patient Records regulations: The Federal rules restrict any use of the information to criminally investigate or prosecute any alcohol or drug abuse patient.[facility] HospitalIn the event this information is protected by the Federal Confidentiality of Alcohol and Drug Abuse Patient Records regulations: The Federal rules restrict any use of the information to criminally investigate or prosecute any alcohol or drug abuse patient.[facility] HospitalIn the event this information is protected by the Federal Confidentiality of Alcohol and Drug Abuse Patient Records regulations: The Federal rules restrict any use of the information to criminally investigate or prosecute any alcohol or drug abuse patient.[facility] HospitalIn the event this information is protected by the Federal Confidentiality of Alcohol and Drug Abuse Patient Records regulations: The Federal rules restrict any use of the information to criminally investigate or prosecute any alcohol or drug abuse patient.[facility] HospitalIn the event this information is protected by the Federal Confidentiality of Alcohol and Drug Abuse Patient Records regulations: The Federal rules restrict any use of the information to criminally investigate or prosecute any alcohol or drug abuse patient.[facility] HospitalIn the event this information is protected by the Federal Confidentiality of Alcohol and Drug Abuse Patient Records regulations: The Federal rules restrict any use of the information to criminally investigate or prosecute any alcohol or drug abuse patient.[facility] HospitalIn the event this information is protected by the Federal Confidentiality of Alcohol and Drug Abuse Patient Records regulations: The Federal rules restrict any use of the information to criminally investigate or prosecute any alcohol or drug abuse patient.[facility] HospitalIn the event this information is protected by the Federal Confidentiality of Alcohol and Drug Abuse Patient Records regulations: The Federal rules restrict any use of the information to criminally investigate or prosecute any alcohol or drug abuse patient.[facility] HospitalIn the event this information is protected by the Federal Confidentiality of Alcohol and Drug Abuse Patient Records regulations: The Federal rules restrict any use of the information to criminally investigate or prosecute any alcohol or drug abuse patient.[facility] HospitalIn the event this information is protected by the Federal Confidentiality of Alcohol and Drug Abuse Patient Records regulations: The Federal rules restrict any use of the information to criminally investigate or prosecute any alcohol or drug abuse patient.[facility] HospitalIn the event this information is protected by the Federal Confidentiality of Alcohol and Drug Abuse Patient Records regulations: The Federal rules restrict any use of the information to criminally investigate or prosecute any alcohol or drug abuse patient.[facility] HospitalIn the event this information is protected by the Federal Confidentiality of Alcohol and Drug Abuse Patient Records regulations: The Federal rules restrict any use of the information to criminally investigate or prosecute any alcohol or drug abuse patient.[facility] HospitalIn the event this information is protected by the Federal Confidentiality of Alcohol and Drug Abuse Patient Records regulations: The Federal rules restrict any use of the information to criminally investigate or prosecute any alcohol or drug abuse patient.[facility] HospitalIn the event this information is protected by the Federal Confidentiality of Alcohol and Drug Abuse Patient Records regulations: The Federal rules restrict any use of the information to criminally investigate or prosecute any alcohol or drug abuse patient.[facility] HospitalIn the event this information is protected by the Federal Confidentiality of Alcohol and Drug Abuse Patient Records regulations: The Federal rules restrict any use of the information to criminally investigate or prosecute any alcohol or drug abuse patient.[facility] HospitalIn the event this information is protected by the Federal Confidentiality of Alcohol and Drug Abuse Patient Records regulations: The Federal rules restrict any use of the information to criminally investigate or prosecute any alcohol or drug abuse patient.[facility] HospitalIn the event this information is protected by the Federal Confidentiality of Alcohol and Drug Abuse Patient Records regulations: The Federal rules restrict any use of the information to criminally investigate or prosecute any alcohol or drug abuse patient.[facility] HospitalIn the event this information is protected by the Federal Confidentiality of Alcohol and Drug Abuse Patient Records regulations: The Federal rules restrict any use of the information to criminally investigate or prosecute any alcohol or drug abuse patient.[facility] HospitalIn the event this information is protected by the Federal Confidentiality of Alcohol and Drug Abuse Patient Records regulations: The Federal rules restrict any use of the information to criminally investigate or prosecute any alcohol or drug abuse patient.[facility] Reason for Visit (unrecogniz ed section and content) Reason Comments malignant neoplasm of ureter follow up t reatment Reason Comments ureter cancer Specialty Diagnoses / Procedures Referred By Contac t Referred To Contact Diagnoses Malignant neoplasm of ureter (HCC) Soren Perea MD [address] [place] [address] [place] [address] [facility] [facility] [address] [place] [address] Referral ID Status Reason Start Date Expiration Date V isits Requested Visits Authorized [id number] Authorized 11/14/2021 02/12/2022 99 99 Reason Comments [...] of overlapping sites of bladder (HCC) Caesar Vazquez MD [address] [place] [address] [facility] [address] [place] [address] Referral ID Status Reason Start Date Expiration Date V isits Requested Visits Authorized [id number] Authorized 12/24/2022 03/24/2023 99 99 Reason Comments [...] Visit Reason Comments Care Coordination Sore Throat Reason Comments Care Coordination Follow Up Appointmen t Specialty Diagnoses / Procedures Referred By Contac t Referred To Contact Diagnoses Malignant neoplasm of ureter, 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, 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) Procedures INJ PEMBROLIZUMAB Caesar Vazquez MD [address] [place] [address] [facility] [address] [place] [address] Referral ID Status Reason Start Date Expiration Date V isits Requested Visits Authorized [id number] Authorized 12/24/2022 10/13/2024 99 99 Reason Comments Bladder Cancer OTV Care Teams (unrecognized sec tion and content) Stock Turner Relationship Specialty Start Date End Date Yoan Sneed MD [address] [place], [place] [id number] PCP - General Family Practice 07/30/19 Jian Rodriguez MD [address] [place] [address] Physician Urology 10/28/19 Lauren Mckeon, RN [address] [place] [address] Specialty Computer Systems Designer Hematology/Oncology 11/21/21 Soren Perea MD [address] [place] [address] Physician Hematology/Oncology 11/21/21 Corazon Maxwell PA-C [address] [place] [address] Physician Loom Inspector Hematology/Oncology 11/21/21 Stock Turner Relationship Specialty Start Date End Date Yoan Sneed MD [address] [place] [address] PCP - General Family Practice 07/30/19 Jian Rodriguez MD [address] [place] [address] Physician Urology 10/28/19 Lauren Mckeon, RN [address] [facility] [place] [address] Specialty Computer Systems Designer Hematology/Oncology 11/21/21 Soren Perea MD [address] [place] [address] Physician Hematology/Oncology 11/21/21 Corazon Maxwell PA-C [address] [place] [address] Physician Loom Inspector Hematology/Oncology 11/21/21 Stock Turner Relationship Specialty Start Date End Date Yoan Sneed MD [address] [place] [address] PCP - General Family Practice 07/30/19 Jian Rodriguez MD [address] [place] [address] Physician Urology 10/28/19 Lauren Mckeon, RN [address] [place] [address] Specialty Computer Systems Designer Hematology/Oncology 11/21/21 Soren Perea MD [address] [place] [address] Physician Hematology/Oncology 11/21/21 Corazon Maxwell PA-C [address] [place] [address] Physician Loom Inspector Hematology/Oncology 11/21/21 Stock Turner Relationship Specialty Start Date End Date Yoan Sneed MD [address] [place] [address] PCP - General Family Practice 07/30/19 Jian Rodriguez MD [address] [place] [address] Physician Urology 10/28/19 Lauren Mckeon, RN [address] [facility] [place] [address] Specialty Computer Systems Designer Hematology/Oncology 11/21/21 Soren Perea MD [address] [facility] [place] [address] Physician Hematology/Oncology 11/21/21 Corazon Maxwell PA-C [address] [facility] [place] [address] Physician Loom Inspector Hematology/Oncology 11/21/21 Stock Turner Relationship Specialty Start Date End Date Yoan Sneed MD [address] [place] [address] PCP - General Family Practice 07/30/19 Jian Rodriguez MD [address] [place] [address] Physician Urology 10/28/19 Lauren cMkeon, RN [address] [facility] [place] [address] Specialty Computer Systems Designer Hematology/Oncology 11/21/21 Soren Perea MD [address] [facility] [place] [address] Physician Hematology/Oncology 11/21/21 Corazon Maxwell PA-C [address] [place] [address] Physician Loom Inspector Hematology/Oncology 11/21/21 Stock Turner Relationship Specialty Start Date End Date Yoan Sneed MD [address] [place] [address] PCP - General Family Practice 07/30/19 Jian Rodriguez MD [address] [place] [address] Physician Urology 10/28/19 Lauren Mckeon, RN [address] [place] [address] Specialty Computer Systems Designer Hematology/Oncology 11/21/21 Soren Perea MD [address] [place] [address] Physician Hematology/Oncology 11/21/21 Corazon Maxwell PA-C [address] [place] [address] Physician Loom Inspector Hematology/Oncology 11/21/21 Stock Turner Relationship Specialty Start Date End Date Yoan Sneed MD [address] [place] [address] PCP - General Family Practice 07/30/19 Jian Rodriguez MD [address] [place] [address] Physician Urology 10/28/19 Lauren Mckeon, RN [address] [facility] [place] [address] Specialty Computer Systems Designer Hematology/Oncology 11/21/21 Soren Perea MD [address] [place] [address] Physician Hematology/Oncology 11/21/21 Corazon Maxwell PA-C [address] [place] [address] Physician Loom Inspector Hematology/Oncology 11/21/21 Stock Turner Relationship Specialty Start Date End Date Yoan Sneed MD [address] [place] [address] PCP - General Family Practice 07/30/19 Jian Rodriguez MD [address] [place] [address] Physician Urology 10/28/19 Lauren Mckeon, RN [address] [place] [address] Specialty Computer Systems Designer Hematology/Oncology 11/21/21 Soren Perea MD [address] [place] [address] Physician Hematology/Oncology 11/21/21 Corazon Maxwell PA-C [address] [place] [address] Physician Loom Inspector Hematology/Oncology 11/21/21 Stock Turner Relationship Specialty Start Date End Date Yoan Sneed MD [address] [place] [address] PCP - General Family Practice 07/30/19 Jian Rodriguez MD [address] [place] [address] Physician Urology 10/28/19 Lauren Mckeon RN [address] [place] [address] Specialty Computer Systems Designer Hematology/Oncology 11/21/21 Soren Perea MD [address] [place] [address] Physician Hematology/Oncology 11/21/21 Corazon Maxwell PA-C [address] [place] [address] Physician Loom Inspector Hematology/Oncology 11/21/21 Stock Turner Relationship Specialty Start Date End Date Yoan Sneed MD [address] [facility] [place] [address] PCP - General Family Practice 07/30/19 Jian Rodriguez MD [address] [place] [address] Physician Urology 10/28/19 Lauren Mckeon, RN [address] [facility] [place] [address] Specialty Computer Systems Designer Hematology/Oncology 11/21/21 Soren Perea MD [address] [place] [address] Physician Hematology/Oncology 11/21/21 Corazon Maxwell, PAEnocC [address] [place] [address] Physician Loom Inspector Hematology/Oncology 11/21/21 Stock Turner Relationship Specialty Start Date End Date Yoan Sneed MD [address] [place] [address] PCP - General Family Practice 07/30/19 Jian Rodriguez MD [address] [place] [address] Physician Urology 10/28/19 Lauren Mckeon, RN [address] [facility] [place] [address] Specialty Computer Systems Designer Hematology/Oncology 11/21/21 Soren Perea MD [address] [facility] [place] [address] Physician Hematology/Oncology 11/21/21 Corazon Maxwell, PA-C [address] [place] [address] Physician Loom Inspector Hematology/Oncology 11/21/21 Stock Turner Relationship Specialty Start Date End Date Yoan Sneed MD [address] [facility] [place] [address] PCP - General Family Medicine 07/30/19 Jian Rodriguez MD [address] [place] [address] Physician Urology 10/28/19 Soren Perea MD [address] [facility] [place] [address] Physician Hematology/Oncology 11/21/21 Casey Castaneda MD [address] [facility] [address] [place] [address] Cardiology 09/12/22 Stock Turner Relationship Specialty Start Date End Date Yoan Sneed MD [address] [place] [address] PCP - General Family Medicine 07/30/19 Jian Rodriguez MD [address] [place] [address] Physician Urology 10/28/19 Soren Perea MD [address] [facility] [place] [address] Physician Hematology/Oncology 11/21/21 Casey Castaneda MD [address] [facility] [address] [place] [address] Cardiology 09/12/22 Stock Turner Relationship Specialty Start Date End Date Yoan Sneed MD [address] [place] [address] PCP - General Family Medicine 07/30/19 Jian Rodriguez MD [address] [place] [address] Physician Urology 10/28/19 Soren Perea MD [address] [facility] [place] [address] Physician Hematology/Oncology 11/21/21 Casey Castaneda MD [address] [facility] [address] [place] [address] Cardiology 09/12/22 Stock Turner Relationship Specialty Start Date End Date Yoan Sneed MD [address] [place] [address] PCP - General Family Medicine 07/30/19 Jian Rodriguez MD [address] [place] [address] Physician Urology 10/28/19 Soren Perea MD [address] [place] [address] Dr. [place], [facility]70 Physician Hematology/Oncology 11/21/21 Casey Castaneda MD [address] [facility] 1 [place] [address] Cardiology 09/12/22 Stock Turner Relationship Specialty Start Date End Date Yoan Sneed MD [address] [place] [address] PCP - General Family Medicine 07/30/19 Jian Rodriguez MD [address] [place] [address] Physician Urology 10/28/19 Soren Perea MD [address] [place] [address] Dr. [place], [facility]70 Physician Hematology/Oncology 11/21/21 Casey Castaneda MD [address] [facility] [address] [place] [address] Cardiology 09/12/22 Stock Turner Relationship Specialty Start Date End Date Yoan Sneed MD [address] [place] [address] PCP - General Family Medicine 07/30/19 Jian Rodriguez MD [address] [place] [address] Physician Urology 10/28/19 Soren Perea MD [address] [facility] [place] [address] Physician Hematology/Oncology 11/21/21 Casey Castaneda MD [address] [facility] [address] [place] [address] Cardiology 09/12/22 Stock Turner Relationship Specialty Start Date End Date Yoan Sneed MD PCP - General Family Medicine 07/30/19 Jian Rodriguez MD [address] [place] [id number] Physician Urology 10/28/19 Casey Castaneda MD [address] [facility] [address] [place] [address] Cardiology 09/12/22 Caesar Vazquez MD [address] [place] [address] Physician Hematology/Oncology 12/26/22 Margot So, SUNIL [address] [place] [id number] Specialty Computer Systems Designer Hematology/Oncology 12/26/22 Wayne Chavez, DIGITAL BUSINESS ANALYST.[employer] [address] [place] [address] Nurse Practitioner Hematology/Oncology 12/26/22 Stock Turner Relationship Specialty Start Date End Date Yoan Sneed MD PCP - General Family Medicine 07/30/19 Jian Rodriguez MD [address] [place] [address] Physician Urology 10/28/19 Casey Castaneda MD [address] [facility] 1 [place] [address] Cardiology 09/12/22 Caesar Vazquez MD [address] [place] [address] Physician Hematology/Oncology 12/26/22 Margot So, RN [address] [place] [address] Specialty Computer Systems Designer Hematology/Oncology 12/26/22 Wayne Chavez, DIGITAL BUSINESS ANALYST.[employer] [address] [place] [address] Nurse Practitioner Hematology/Oncology 12/26/22 Stock Turner Relationship Specialty Start Date End Date Yoan Sneed MD PCP - General Family Medicine 07/30/19 Jian Rodriguez MD [address] [place] [address] Physician Urology 10/28/19 Casey Castaneda MD [address] [facility] [address] [place] [address] Cardiology 09/12/22 Caesar Vazquez MD [address] [place] [address] Physician Hematology/Oncology 12/26/22 Margot So, RN [address] [place] [address] Specialty Computer Systems Designer Hematology/Oncology 12/26/22 Wayne Chavez, DIGITAL BUSINESS ANALYST.[employer] [address] [place] [address] Nurse Practitioner Hematology/Oncology 12/26/22 Stock Turner Relationship Specialty Start Date End Date Yoan Sneed MD PCP - General Family Medicine 07/30/19 Jian Rodriguez MD [address] [place] [address] Physician Urology 10/28/19 Casey Castaneda MD [address] [place] [address] Cardiology 09/12/22 Caesar Vazquez MD [address] [facility] [address] Physician Hematology/Oncology 12/26/22 Margot So, RN [address] [facility] [address] Specialty Computer Systems Designer Hematology/Oncology 12/26/22 Wayne Chavez APRN.[employer] [address] [place] [address] Nurse Practitioner Hematology/Oncology 12/26/22 Stock Turner Relationship Specialty Start Date End Date Yoan Sneed MD PCP - General Family Medicine 07/30/19 Jian Rodriguez MD [address] [place] [address] Physician Urology 10/28/19 Casey Castaneda MD [address] [facility] [address] [place] [address] Cardiology 09/12/22 Caesar Vazquez MD [address] [facility] [address] Physician Hematology/Oncology 12/26/22 Margot So, SUNIL [address] [place] [address] Specialty Computer Systems Designer Hematology/Oncology 12/26/22 Wayne Chavez, DIGITAL BUSINESS ANALYST.[facility] [address] [place] [address] Nurse Practitioner Hematology/Oncology 12/26/22 Stock Turner Relationship Specialty Start Date End Date Yoan Sneed MD PCP - General Family Medicine 07/30/19 Jian Rodriguez MD [address] [place] [address] Physician Urology 10/28/19 Casey Castaneda MD [address] [place] [address] Cardiology 09/12/22 Caesar Vazquez MD [address] [place] [address] Physician Hematology/Oncology 12/26/22 Margot So, RN [address] [place] [address] Specialty Computer Systems Designer Hematology/Oncology 12/26/22 Wayne Chavez, DIGITAL BUSINESS ANALYST.[employer] [address] [place] [address] Nurse Practitioner Hematology/Oncology 12/26/22 Stock Turner Relationship Specialty Start Date End Date Yoan Sneed MD PCP - General Family Medicine 07/30/19 Jian Rodriguez MD Physician Urology 10/28/19 Casey Castaneda MD [address] [place] [address] Cardiology 09/12/22 Caesar Vazquez MD [address] [place] [address] Physician Hematology/Oncology 12/26/22 Margot So, SUNIL [address] [place] [address] Specialty Computer Systems Designer Hematology/Oncology 12/26/22 Wayne Chavez, DIGITAL BUSINESS ANALYST.[employer] [address] [facility] [place] [address] Nurse Practitioner Hematology/Oncology 12/26/22 Stock Turner Relationship Specialty Start Date End Date Yoan Sneed MD PCP - General Family Medicine 07/30/19 Jian Rodriguez MD Physician Urology 10/28/19 Casey Castaneda MD [address] [place] [address] Cardiology 09/12/22 Caesar Vazquez MD [address] [place] [address] Physician Hematology/Oncology 12/26/22 Margot So, SUNIL [address] [place] [address] Specialty Computer Systems Designer Hematology/Oncology 12/26/22 Wayne Chavez, DIGITAL BUSINESS ANALYST.[employer] [address] [place] [address] Nurse Practitioner Hematology/Oncology 12/26/22 Stock Turner Relationship Specialty Start Date End Date Yoan Sneed MD PCP - General Family Medicine 07/30/19 Jian Rodriguez MD Physician Urology 10/28/19 Casey Castaneda MD [address] [facility] [address] [facility] [place] [phone] Cardiology 09/12/22 Caeasr Vazquez MD [address] [place] [address] Physician Hematology/Oncology 12/26/22 Margot So, SUNIL [address] [place] [address] Specialty Computer Systems Designer Hematology/Oncology 12/26/22 Wayne Chavez APRN.[employer] [address] [place] [address] Nurse Practitioner Hematology/Oncology 12/26/22 Stock Turner Relationship Specialty Start Date End Date Yoan Sneed MD PCP - General Family Medicine 07/30/19 Jian Rodriguez MD Physician Urology 10/28/19 Casey Castaneda MD [address] Card[address] [place] [phone] Cardiology 09/12/22 Caesar Vazquez MD [address] [place] [address] [place] [address] Physician Hematology/Oncology 12/26/22 Margot So, SUNIL [address] [place] [address] Specialty Computer Systems Designer Hematology/Oncology 12/26/22 Wayne Chavez, DIGITAL BUSINESS ANALYST.[employer] [address] [place] [address] [place] [address] Nurse Practitioner Hematology/Oncology 12/26/22 Stock Turner Relationship Specialty Start Date End Date Yoan Sneed MD PCP - General Family Medicine 07/30/19 Jian Rodriguez MD Physician Urology 10/28/19 Casey Castaneda MD [address] [facility] [address] [place] [address] Cardiology 09/12/22 Caesar Vazquez MD [address] [place] [address] [place] [address] Physician Hematology/Oncology 12/26/22 Margot So, SUNIL [address] [place] [address] Specialty Computer Systems Designer Hematology/Oncology 12/26/22 Wayen Chavez, DIGITAL BUSINESS ANALYST.[employer] [address] [place] [address] [place] [address] Nurse Practitioner Hematology/Oncology 12/26/22 Stock Turner Relationship Specialty Start Date End Date Yoan Sneed MD PCP - General Family Medicine 07/30/19 Jian Rodriguez MD Physician Urology 10/28/19 Casey Castaneda MD [address] [facility] [address] [place] [address] Cardiology 09/12/22 Caesar Vazquez MD [address] [place] [address] Physician Hematology/Oncology 12/26/22 Margot So, SUNIL [address] [place] [address] Specialty Computer Systems Designer Hematology/Oncology 12/26/22 Wayne Chavez APRN.[employer] [address] [place] [address] Nurse Practitioner Hematology/Oncology 12/26/22 Stock Turner Relationship Specialty Start Date End Date Yoan Sneed MD PCP - General Family Medicine 07/30/19 Jian Rodriguez MD Physician Urology 10/28/19 Stock Turner Relationship Specialty Start Date End Date Yoan Sneed MD PCP - General Family Medicine 07/30/19 Jian Rodriguez MD Physician Urology 10/28/19 Casey Castaneda MD [address] [facility] [address] [place] [address] Cardiology 09/12/22 Caesar Vazquez MD [address] [place] [address] Physician Hematology/Oncology 12/26/22 Margot So, RN [address] [facility] [place] [address] Specialty Computer Systems Designer Hematology/Oncology 12/26/22 Wayne Chavez APRN.[facility] [address] [facility] [place] [address] Nurse Practitioner Hematology/Oncology 12/26/22 Stock Turner Relationship Specialty Start Date End Date Yoan Sneed MD PCP - General Family Medicine 07/30/19 Jian Rodriguez MD Physician Urology 10/28/19 Casey Castaneda MD [address] [facility] [address] [place] [address] Cardiology 09/12/22 Caesar Vazquez MD [address] [place] [address] Physician Hematology/Oncology 12/26/22 Margot So, RN [address] [facility] [place] [address] Specialty Computer Systems Designer Hematology/Oncology 12/26/22 Wayne Chavez, DIGITAL BUSINESS ANALYST.[employer] [address] [place] [address] Nurse Practitioner Hematology/Oncology 12/26/22 Stock Turner Relationship Specialty Start Date End Date Yoan Sneed MD PCP - General Family Medicine 07/30/19 Jian Rodriguez MD Physician Urology 10/28/19 Casey Castaneda MD [address] [facility] [address] [place] [address] Cardiology 09/12/22 Caesar Vazquez MD [address] [place] [address] Physician Hematology/Oncology 12/26/22 Margot So, SUNIL [address] [place] [address] Specialty Computer Systems Designer Hematology/Oncology 12/26/22 Wayne Chavez, DIGITAL BUSINESS ANALYST.[employer] [address] [place] [address] Nurse Practitioner Hematology/Oncology 12/26/22 Stock Turner Relationship Specialty Start Date End Date Yoan Sneed MD PCP - General Family Medicine 07/30/19 Jian Rodriguez MD Physician Urology 10/28/19 Casey Castaneda MD [address] [facility] [address] [place] [address] Cardiology 09/12/22 Caesar Vazquez MD [address] [facility] [place] [address] Physician Hematology/Oncology 12/26/22 Margot So, RN [address] [facility] [place] [address] Specialty Computer Systems Designer Hematology/Oncology 12/26/22 Wayne Chavez APRN.[facility] [address] [facility] [place] [address] Nurse Practitioner Hematology/Oncology 12/26/22 Stock Turner Relationship Specialty Start Date End Date Yoan Sneed MD PCP - General Family Medicine 07/30/19 Jian Rodriguez MD Physician Urology 10/28/19 Casey Castaneda MD [address] [facility] [address] [place] [address] Cardiology 09/12/22 Caesar Vazquez MD [address] [facility] [place] [address] Physician Hematology/Oncology 12/26/22 Margot So, RN [address] [facility] [place] [address] Specialty Computer Systems Designer Hematology/Oncology 12/26/22 Wayne Chavez, DIGITAL BUSINESS ANALYST.[employer] [address] [place] [address] Nurse Practitioner Hematology/Oncology 12/26/22 Stock Turner Relationship Specialty Start Date End Date Yoan Sneed MD PCP - General Family Medicine 07/30/19 Jian Rodriguez MD Physician Urology 10/28/19 Casey Castaneda MD [address] [facility] [address] [place] [address] Cardiology 09/12/22 Caesar Vazquez MD [address] [place] [address] [place] [address] Physician Hematology/Oncology 12/26/22 Margot So, SUNIL [address] [place] [address] Specialty Computer Systems Designer Hematology/Oncology 12/26/22 Wayne Chavez, DIGITAL BUSINESS ANALYST.[employer] [address] [place] [address] [place] [address] Nurse Practitioner Hematology/Oncology 12/26/22 Stock Turner Relationship Specialty Start Date End Date Yoan Sneed MD PCP - General Family Medicine 07/30/19 Jian Rodriguez MD Physician Urology 10/28/19 Casey Castaneda MD [address] [place] [address] Cardiology 09/12/22 Caesar Vazquez MD [address] [place] [address] Physician Hematology/Oncology 12/26/22 Margot So, RN [address] [place] [address] Specialty Computer Systems Designer Hematology/Oncology 12/26/22 Wayne Chavez, MARSHA.[facility] [address] [place] [address] Nurse Practitioner Hematology/Oncology 12/26/22 Stock Turner Relationship Specialty Start Date End Date Yoan Sneed MD PCP - General Family Medicine 07/30/19 Jian Rodriguez MD Physician Urology 10/28/19 Casey Castaneda MD [address] [place] [address] Cardiology 09/12/22 Caesar Vazquez MD [address] [place] [address] Physician Hematology/Oncology 12/26/22 Margot So, RN [address] [place] [address] Specialty Computer Systems Designer Hematology/Oncology 12/26/22 Wayne Chavez, DIGITAL BUSINESS ANALYST.[employer] [address] [place] [address] Nurse Practitioner Hematology/Oncology 12/26/22 Stock Turner Relationship Specialty Start Date End Date Yoan Sneed MD PCP - General Family Medicine 07/30/19 Jian Rodriguez MD Physician Urology 10/28/19 Casey Castaneda MD [address] [facility] [address] [place] [address] Cardiology 09/12/22 Caesar Vazquez MD [address] [place] [address] Physician Hematology/Oncology 12/26/22 Margot So, SUNIL [address] [place] [address] Specialty Computer Systems Designer Hematology/Oncology 12/26/22 Wayne Chavez, DIGITAL BUSINESS ANALYST.[employer] [address] [place] [address] Nurse Practitioner Hematology/Oncology 12/26/22 Stock Turner Relationship Specialty Start Date End Date Yoan Sneed MD PCP - General Family Medicine 07/30/19 Jian Rodriguez MD Physician Urology 10/28/19 Casey Castaneda MD [address] [facility] [address] [place] [address] Cardiology 09/12/22 Caesar Vazquez MD [address] [facility] [place] [address] Physician Hematology/Oncology 12/26/22 Margot So, RN [address] [facility] [place] [address] Specialty Computer Systems Designer Hematology/Oncology 12/26/22 Wayne Chavez, DIGITAL BUSINESS ANALYST.[employer] [address] [facility] [place] [address] Nurse Practitioner Hematology/Oncology 12/26/22 Stock Turner Relationship Specialty Start Date End Date Yoan Sneed MD PCP - General Family Medicine 07/30/19 Jian Rodriguez MD Physician Urology 10/28/19 Casey Castaneda MD [address] [facility] [address] [place] [address] Cardiology 09/12/22 Caesar Vazquez MD [address] [place] [address] Physician Hematology/Oncology 12/26/22 Margot So, RN [address] [facility] [place] [address] Specialty Computer Systems Designer Hematology/Oncology 12/26/22 Wayne Chavez, DIGITAL BUSINESS ANALYST.[employer] [address] [facility] [address] Nurse Practitioner Hematology/Oncology 12/26/22 Stock Turner Relationship Specialty Start Date End Date Yoan Sneed MD PCP - General Family Medicine 07/30/19 Jian Rodriguez MD Physician Urology 10/28/19 Casey Castaneda MD [address] [facility] 1 [place] [address] Cardiology 09/12/22 Caesar Vazquez MD [address] [place] [address] Physician Hematology/Oncology 12/26/22 Margot So, SUNIL [address] [facility] [place] [address] Specialty Computer Systems Designer Hematology/Oncology 12/26/22 Wayne Chavez, DIGITAL BUSINESS ANALYST.[employer] [address] [place] [address] Nurse Practitioner Hematology/Oncology 12/26/22 Stock Turner Relationship Specialty Start Date End Date Yoan Sneed MD PCP - General Family Medicine 07/30/19 Jian Rodriguez MD Physician Urology 10/28/19 Casey Castaneda MD [address] [place] [address] Cardiology 09/12/22 Caesar Vazquez MD [address] [place] [address] Physician Hematology/Oncology 12/26/22 Margot So, SUNIL [address] [place] [address] Specialty Computer Systems Designer Hematology/Oncology 12/26/22 Wayne Chavez APRN.[employer] [address] [place] [address] Nurse Practitioner Hematology/Oncology 12/26/22 Inactive Administered Medications - up to 3 most recent administrations Administered Medications (un recognized section and content) Medication Order MAR Action Action Date Dose Rate Site NaCl 0.9% 500 mL INTRAVENOUS, at 500 mL/hr, Administer over 1 Hours, ONCE, 1 dose, On Sat11/29/23 at 1330 New Bag/Syringe/Bottle 11/29/2023 1:42 PM EST 500 mL/hr pembrolizumab 200 mg in NaCl 0.9% 66 mL (KEYTRUDA) 200 mg, INTRAVENOUS, Administer over 30 Minutes, ONCE, 1 dose, On Sat11/29/23 at 1330, EXP: 11/29/2023 1930 RT Administer with 0.2 micron filter. New Bag/Syringe/Bottle 11/29/2023 2:16 PM EST 200 mg FOR RECORDS PERTAINING TO PATIENTS WHO ARE [...] BE BASED ON THE PRIMARY CLINICAL RECORDS. [employer] provides no warranty or guarantee of the accuracy or completeness of information in this document.
[2023-12-30] MEDS: REGADENOSON 0.4 MG/5 ML SYRINGE 0.400000000000000022 MG IV (10:46)
== END 2023-12-30 08:21 | disposition home or self-care (01) ==
LOC: NM 08:20
PROVIDERS: PCP Family Medicine; Visit Provider Nurse Practitioner
DX: R06.09 Other forms of dyspnea (principal)
CPT/HCPCS: 78452; 93017; A9500; J2785

== ENCOUNTER 2024-01-07 10:19 | Outpatient (OUT) | payer MEDICARE, SELFPAY ==
--- OUTSIDE RECORDS SUMMARY | 2024-01-07 10:38 | XMS_ITS | CCD ---
Author Organization [facility] Care Team Providers Care Simulation Tech Name Role Phone PHYSICIAN, DEFAULT Unavailable Unavailable PHYSICIAN, DEFAULT Unavailable Unavailable PHYSICIAN, DEFAULT Unavailable Unavailable PHYSICIAN, DEFAULT Unavailable Unavailable Yoan Sneed MD Primary Care Provider [phone] Jian Rodriguez MD Unavailable Unavailable Mike BARBER, Lauren Barros Unavailable [phone] Soren Perea MD Unavailable Alissa VASQUEZ, Corazon Feliz Unavailable Augusto Sauceda Unavailable Shawn Nelson Unavailable Yoan Sneed MD Primary Care Provider Jian Rodriguez MD Unavailable Unavailable Brit FOUNTAIN, Soren Unavailable Casey Castaneda MD Unavailable Yoan Sneed Primary Care Physician Yoan Sneed MD Primary Care Provider Caesar Vazquez MD Unavailable Saray BARBER, Margot Unavailable [phone] Wayne Chavez APRN.CNP Unavailable PAY ., DR SEVILLA Consulting Unavailable PAY ., DR SEVILLA Admitting Unavailable NAREN ., DR MILTON Primary Care Unavailable PAY ., DR SEVILLA Attending Unavailable MIKE MARTÍNEZ Consulting Unavailable NAREN ., DR MILTON Primary Care Unavailable BYRON KIRK Attending Unavailable BYRON KIRK Consulting Unavailable BYRON KIRK Admitting Unavailable AUGUSTINA JAMES Consulting Unavailable NAREN ., DR MILTON Primary [...] Attending Unavailable Jian RODRIGUEZ Attending Unavailable Saray RN, Margot Unavailable JAIMEE RHODES Attending Unavailable HOY, [...] Primary Care Unavailable WAYNE CHAVEZ Attending Unavailable WAYNE CHAVEZ Referring Unavailable HOY, YOAN M Primary Care Unavailable CHIPAR, CAESAR Attending Unavailable HOY, YOAN M Primary Care Unavailable PATRICIA WHITING Referring Unavailable AHMED, MIGUEL Admitting Unavailable AHMED, MIGUEL Attending Unavailable MERZA, NOORALDIN Referring Unavailable MERZA, NOORALDIN Referring Unavailable AHMED, MIGUEL Referring Unavailable AHMED, MIGUEL Referring Unavailable JIMBO BAUTISTA Attending Unavailable BEN, JOSESITO Attending Unavailable REESE, JONATHAN Attending Unavailable JIMBO BAUTISTA Referring Unavailable DAGOBERTO JAMES Attending Unavailable JIMBO BAUTISTA Referring Unavailable BARJOSESITO YAO Referring Unavailable JOSESITO VILLANUEVA Attending Unavailable ELMO, NASHEED Referring Unavailable ELMO, NASHEED Attending Unavailable AHMED, MIGUEL Referring Unavailable Allergies Allergy Classification Reported Allergen(s) Allergy Type Date of Onset Reaction(s) Facility (20 sources) Adhesive Tape; Translations: [ADHESIVE TAPE (ROSINS)] Propensity to adverse reactions to substance 8 Other: See Comments [facility] (2 sources) Adhesive Tape; Translations: [Tape] Allergy to substance Blister of skin without infection (disorder) [facility] (4 sources) Desonide Drug Allergy 4 Unknown [facility] Repository (1 source) No Known Medication Allergies; Translations: [No Known Medication Allergies] Propensity to adverse reactions (disorder) [facility] Repository (2 sources) Adhesive agent; Translations: [ADHESIVE] Propensity to adverse reactions to drug (disorder) 8 [facility] Repository (1 source) Desonide; Translations: [DESONIDE] Drug Allergy 4 [facility] Repository (1 source) OTHER; Translations: [OTHER] Propensity to adverse reactions (disorder) 8 [facility] Repository NEGATED: Highlighted row has been ruled out! (1 source) Drug allergy [facility] Medications Current Medications Medication Drug Class(es) [...] Comment on above: [facility]. Completed/Discontinued Medications [...] on above: Take 2 tablets by mo [facility] every 4 hours as needed for [...] Take 1 tablet by jenn once daily. ciprofloxacin 250 mg oral tablet (1 source) Quinolone Antimicrobial Start: 3 take 1 tablet by mouth once daily Cipro 250 mg Tab 250 mg = 1 tab(s), Oral, Daily, Take 1 tablet the day before the procedure and 1 tablet after the procedure, # 2 tab(s), Refills(s) 0, Pharmacy: [facility] [id number], 167, cm, 12/05/22 9:25:00 EST, Height/Length Dosing, [...] 11/26/2022 Start: 05-23-2022 take 1 capsule by [facility] twice daily docusate sodium (COLACE) 100 mg capsule Take 1 capsule by mouth twice daily. 10 capsule 0 05/23/2022 Active Comment on above: Take 1 capsule by [facility] twice daily. Take 1 capsule by [facility] twice daily for 14 days. Stop taking [...] Take 325 mg by mouth . Fish Oil-Amanda-3 Fatty Acids (FISH OIL) 300-1,000 mg cap (13 sources) take 1 capsule by mouth once daily Fish Oil-Amanda-3 Fatty Acids (FISH OIL) 300-1,000 mg cap [...] times a day. 0 07/13/2019 Active Losartan Tesha hernandez Active Comment on above: Take 50 mg by mouth twice daily. Take 50 mg by mouth. Take 50 mg by mouth two times a day. Methylcellulose (1 source) End: methylcellulose (CITRUCEL ORAL) Take 1 Tablespoonful by [...] Comment on above: Take 1 capsule by [facility] twice daily. Take 20 mg by mouth [...] Comment on above: Take 1 tablet by [facility] every 8 hours as needed [...] on above: Take 1 capsule by mo ut once daily 30 minutes after the same meal Take 1 capsule by mo [facility] once daily. Take 0.8 mg by mouth once daily. Take 1 capsule by mo ut once daily. 30 minutes after the same [...] 3 Chronic Other aftercare (1 source) Other detention (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; Translations: [OTH TICKET SELLER CURRENT DRUG THERAPY] Onset: 3 Episodic Other aftercare (1 source) nursing home (current) use of aspirin; Translations: [TICKET SELLER CURRENT USE OF ASPIRIN] Onset: 3 Episodic [...] Test Name Value Interpretation Reference Range Facility 36on 01-02-2024 36 Regarding stress edin t result from 12/30/2023: JAMA Armas MA Reviewed his stress test with Dr. Castaneda. There is no ischemia so no further ischemic work-up needed at this time. We can consider starting ranexa if he is still having chest pain sx's. Thanks Spoke with patient's daughter and informed her of result and also his follow up apt scheduled on 01/14 at 9:00am with Corazon. Normal [facility] CBC W Auto Differential pane l (Bld)on 12-20-2023 Basophils (Bld) [#/Vol] 0.05 10*3/uL Normal <0.11 [facility] Comment on above: Order Comment: Speci men Type: BLOOD SPECIMENOrdering Facility: [facility] Address: [address] [place] [address] Performed By: #### 5 7021-8 ####[facility] LABCLIA [id number] [place] [address] Basophils/100 WBC (Bld) 0.9 % Normal [facility] Comment on above: Order Comment: Speci men Type: BLOOD SPECIMENOrdering Facility: [facility] Address: [address] [place] [address] Performed By: #### 5 7021-8 ####[facility] LABCLIA [id number] [place] [address] Differential cell count method Nom (Bld) Auto Normal [facility] Comment on above: Order Comment: Speci men Type: BLOOD SPECIMENOrdering Facility: [facility] Address: [address] [place] [address] Performed By: #### 5 7021-8 ####[facility] LABCLIA [id number] [place] [address] Eosinophils (Bld) [#/Vol] 0.07 10*3/uL Normal <0.46 [facility] Comment on above: Order Comment: Speci men Type: BLOOD SPECIMENOrdering Facility: [facility] Address: [address] [place] [address] Performed By: #### 5 7021-8 ####[facility] LABCLIA [id number] [place] [address] Eosinophils/100 WBC (Bld) 1.3 % Normal [facility] Comment on above: Order Comment: Speci men Type: BLOOD SPECIMENOrdering Facility: [facility] Address: [address] [place] [address] Performed By: #### 5 7021-8 ####[facility] LABCLIA [id number] [place] [address] Erythrocyte distribution width (RBC) [Ratio] 15.9 % High 11.5-15.0 [facility] Comment on above: Order Comment: Speci men Type: BLOOD SPECIMENOrdering Facility: [facility] Address: [address] [place] [address] Performed By: #### 5 7021-8 ####[facility] LABCLIA [id number] [place] [address] Hematocrit (Bld) [Volume fraction] 39.1 % Normal 39.0-51.0 [facility] Comment on above: Order Comment: Speci men Type: BLOOD SPECIMENOrdering Facility: [facility] Address: [address] [place] [address] Performed By: #### 5 7021-8 ####[facility] LABCLIA [id number] [place] [address] Hemoglobin (Bld) [Mass/Vol] 13.2 g/dL Normal 13.0-17.0 [facility] Comment on above: Order Comment: Speci men Type: BLOOD SPECIMENOrdering Facility: [facility] Address: [address] [place] [address] Performed By: #### 5 7021-8 ####[facility]CLIA [id number] [place] [address] Immature granulocytes (Bld) [#/Vol] 10*3/uL Normal <0.10 [facility] Comment on above: Order Comment: Speci men Type: BLOOD SPECIMENOrdering Facility: [facility] Address: [address] [place] [address] Performed By: #### 5 7021-8 ####[facility]CLIA [id number] [place] [address] Immature granulocytes/100 WBC (Bld) 0.4 % Normal [facility] Comment on above: Order Comment: Speci men Type: BLOOD SPECIMENOrdering Facility: [facility] Address: [address] [place] [address] Performed By: #### 5 7021-8 ####[facility] LABCLIA [id number] [place] [address] Lymphocytes (Bld) [#/Vol] 0.47 10*3/uL Low 1.00-4.00 [facility] Comment on above: Order Comment: Speci men Type: BLOOD SPECIMENOrdering Facility: [facility] Address: [address] [place] [address] Performed By: #### 5 7021-8 ####[facility] LABCLIA [id number] [place] [address] Lymphocytes/100 WBC (Bld) 8.6 % Normal [facility] Comment on above: Order Comment: Speci men Type: BLOOD SPECIMENOrdering Facility: [facility] Address: [address] [place] [address] Performed By: #### 5 7021-8 ####[facility] LABCLIA [id number] [place] [address] MCH (RBC) [Entitic mass] 27.5 pg Normal 26.0-34.0 [facility] Comment on above: Order Comment: Speci men Type: BLOOD SPECIMENOrdering Facility: [facility] Address: [address] [place] [address] Performed By: #### 5 7021-8 ####[facility] LABIA [id number] [place] [address] MCHC (RBC) [Mass/Vol] 33.8 g/dL Normal 30.5-36.0 [facility] Comment on above: Order Comment: Speci men Type: BLOOD SPECIMENOrdering Facility: [facility] Address: [address] [place] [address] Performed By: #### 5 7021-8 ####[facility] LABCLIA [id number] [place] [address] MCV (RBC) [Entitic vol] 81.5 fL Normal 80.0-100.0 [facility] Comment on above: Order Comment: Speci men Type: BLOOD SPECIMENOrdering Facility: [facility] Address: [address] [place] [address] Performed By: #### 5 7021-8 ####[facility] LABIA [id number] [place] [address] Monocytes (Bld) [#/Vol] 0.41 10*3/uL Normal <0.87 [facility] Comment on above: Order Comment: Speci men Type: BLOOD SPECIMENOrdering Facility: [facility] Address: [address] [place] [address] Performed By: #### 5 7021-8 ####[facility] LABCLIA [id number] [place] [address] Monocytes/100 WBC (Bld) 7.5 % Normal [facility] Comment on above: Order Comment: Speci men Type: BLOOD SPECIMENOrdering Facility: [facility] Address: [address] [place] [address] Performed By: #### 5 7021-8 ####[facility] LABCLIA [id number] [place] [address] Neutrophils (Bld) [#/Vol] 4.43 10*3/uL Normal 1.45-7.50 [facility] Comment on above: Order Comment: Speci men Type: BLOOD SPECIMENOrdering Facility: [facility] Address: [address] [place] [address] Performed By: #### 5 7021-8 ####[facility] LABCLIA [id number] [place] [address] Neutrophils/100 WBC (Bld) 81.3 % Normal [facility] Comment on above: Order Comment: Speci men Type: BLOOD SPECIMENOrdering Facility: [facility] Address: [address] [place] [address] Performed By: #### 5 7021-8 ####[facility] LABCLIA [id number] [place] [address] Nucleated RBC (Bld) [#/Vol] 10*3/uL Normal <0.01 [facility] Comment on above: Order Comment: Speci men Type: BLOOD SPECIMENOrdering Facility: [facility] Address: [address] [place] [address] Performed By: #### 5 7021-8 ####[facility] LABCLIA [id number] [place] [address] Nucleated RBC/100 WBC (Bld) [Ratio] 0.0 /100 WBC Normal [facility] Comment on above: Order Comment: Speci men Type: BLOOD SPECIMENOrdering Facility: [facility] Address: [address] [place] [address] Performed By: #### 5 7021-8 ####[facility] LABCLIA [id number] [place] [address] Platelet mean volume (Bld) [Entitic vol] 8.3 fL Low 9.0-12.7 [facility] Comment on above: Order Comment: Speci men Type: BLOOD SPECIMENOrdering Facility: [facility] Address: [address] [place] [address] Performed By: #### 5 7021-8 ####[facility] LABCLIA [id number] [place] [address] Platelets (Bld) [#/Vol] 234 10*3/uL Normal 150-400 [facility] Comment on above: Order Comment: Speci men Type: BLOOD SPECIMENOrdering Facility: [facility] Address: [address] [place] [address] Performed By: #### 5 7021-8 ####[facility] LABCLIA [id number] [place] [address] RBC (Bld) [#/Vol] 4.80 10*6/uL Normal 4.20-6.00 [facility] Comment on above: Order Comment: Speci men Type: BLOOD SPECIMENOrdering Facility: [facility] Address: [address] [place] [address] Performed By: #### 5 7021-8 ####[facility] LABCLIA [id number] [place] [address] WBC (Bld) [#/Vol] 5.45 10*3/uL Normal 3.70-11.00 [facility] Comment on above: Order Comment: Speci men Type: BLOOD SPECIMENOrdering Facility: [facility] Address: [address] [place] [address] Performed By: #### 5 7021-8 ####[facility] LABCLIA [id number] [place] [address] CNOVSPon 12-20-2023 CNOVSP Normal [facility] Comprehensive metabolic 2000 panelon 12-20-2023 Albumin [Mass/Vol] 3.6 g/dL Low 3.9-4.9 [facility] Comment on above: Order Comment: Speci men Type: BLOOD SPECIMENOrdering Facility: [facility] Address: [address] [place] [address] Performed By: #### 2 4323-8 ####[facility] LABCLIA [id number] [place] [address] ALP [Catalytic activity/Vol] 59 U/L Normal 38-113 [facility] Comment on above: Order Comment: Speci men Type: BLOOD SPECIMENOrdering Facility: [facility] Address: [address] [place] [address] Performed By: #### 2 4323-8 ####[facility] LABCLIA [id number] [place] [address] ALT [Catalytic activity/Vol] 19 U/L Normal 10-54 [facility] Comment on above: Order Comment: Speci men Type: BLOOD SPECIMENOrdering Facility: [facility] Address: [address] [place] [address] Performed By: #### 2 4323-8 ####[facility] LABCLIA [id number] [place] [address] Anion gap [Moles/Vol] 8 mmol/L Low 9-18 [facility] Comment on above: Order Comment: Speci men Type: BLOOD SPECIMENOrdering Facility: [facility] Address: [address] [place] [address] Performed By: #### 2 4323-8 ####[facility] LABCLIA [id number] [place] [address] AST [Catalytic activity/Vol] 27 U/L Normal 14-40 [facility] Comment on above: Order Comment: Speci men Type: BLOOD SPECIMENOrdering Facility: [facility] Address: [address] [place] [address] Performed By: #### 2 4323-8 ####[facility] LABCLIA [id number] [place] [address] Bilirubin [Mass/Vol] 0.7 mg/dL Normal 0.2-1.3 [facility] Comment on above: Order Comment: Speci men Type: BLOOD SPECIMENOrdering Facility: [facility] Address: [address] [place] [address] Performed By: #### 2 4323-8 ####[facility] LABCLIA [id number] [place] [address] Calcium [Mass/Vol] 9.0 mg/dL Normal 8.5-10.2 [facility] Comment on above: Order Comment: Speci men Type: BLOOD SPECIMENOrdering Facility: [facility] Address: [address] [place] [address] Performed By: #### 2 4323-8 ####[facility] LABCLIA [id number] [place] [address] Chloride [Moles/Vol] 97 mmol/L Normal 97-105 [facility] Comment on above: Order Comment: Speci men Type: BLOOD SPECIMENOrdering Facility: [facility] Address: [address] [place] [address] Performed By: #### 2 4323-8 ####[facility] LABCLIA [id number] [place] [address] CO2 [Moles/Vol] 27 mmol/L Normal 22-30 [facility] Comment on above: Order Comment: Speci men Type: BLOOD SPECIMENOrdering Facility: [facility] Address: [address] [place], [place] [address] Performed By: #### 2 4323-8 ####[facility] LABCLIA [id number] [place] [address] Creatinine [Mass/Vol] 1.75 mg/dL High 0.73-1.22 [facility] Comment on above: Order Comment: Vero barton Type: BLOOD SPECIMENOrdering Facility: [facility] Address: [address] [place] [address] Performed By: #### 2 4323-8 ####[facility] LABCLIA [id number] [place] [address] Creatinine and Glomerular filtration rate.predicted panel (S/P/Bld) 38 mL/min/1.73m??? Low >=60 [facility] Comment on above: Order Comment: Vero barton Type: BLOOD SPECIMENOrdering Facility: [facility] Address: [address] [place] [address] Result Comment: Viviana mated Glomerular Filtration Rate [...] #### 2 4323-8 ####[facility] LABCLIA [id number] [place] [address] Glucose [Mass/Vol] 113 mg/dL High 74-99 [facility] Comment on above: Order Comment: Vero barton Type: BLOOD SPECIMENOrdering Facility: [facility] Address: [address] [place], [place] [address] Result Comment: The [place] Diabetes Association (ADA) provides guidance for cutoff [...] Standards of Medical Care in Diabetes 2016, [place] [employer]. Diabetes Care. 2016.39(Suppl 1). Performed By: #### 2 4323-8 ####[facility] LABCLIA [id number] [place] [address] Potassium [Moles/Vol] 4.2 mmol/L Normal 3.7-5.1 [facility] Comment on above: Order Comment: Speci men Type: BLOOD SPECIMENOrdering Facility: [facility] Address: [address] [place] [address] Performed By: #### 2 4323-8 ####[facility] LABCLIA [id number] [place] [address] Protein [Mass/Vol] 5.2 g/dL Low 6.3-8.0 [facility] Comment on above: Order Comment: Speci men Type: BLOOD SPECIMENOrdering Facility: [facility] Address: [address] [place] [address] Performed By: #### 2 4323-8 ####[facility] LABCLIA [id number] [place] [address] Sodium [Moles/Vol] 132 mmol/L Low 136-144 [facility] Comment on above: Order Comment: Speci men Type: BLOOD SPECIMENOrdering Facility: [facility] Address: [address] [place] [address] Performed By: #### 2 4323-8 ####[facility] LABCLIA [id number] [place] [address] Urea nitrogen [Mass/Vol] 14 mg/dL Normal 9-24 [facility] Comment on above: Order Comment: Speci men Type: BLOOD SPECIMENOrdering Facility: [facility] Address: [address] [place] [address] Performed By: #### 2 4323-8 ####[facility] LABCLIA [id number] [place] [id number] Beverly Koehler 12-20-19 Cortisol [Mass/Vol] 12.4 ug/dL Normal 4.8-19.5 [facility] Comment on above: Order Comment: Vero barton Type: BLOOD SPECIMENOrdering Facility: [facility] Address: [address] [place] [address] Result Comment: Prov ided reference range is from 6-10 AM sample collection time.Cortisol Reference Range: 6-10 AM = 4.8-19.5 ug/dL, 4-8 PM = 2.5-11.9 ug/dL Performed By: #### 2 143-6, 3016-3 ####[facility] LABCLIA [id number] [address] [place] HbA1c (Bld)on 12-20-2023 Average glucose Estimated from glycated hemoglobin (Bld) [Mass/Vol] 94 mg/dL Normal [facility] Comment on above: Order Comment: Vero barton Type: BLOOD SPECIMENOrdering Facility: [facility] Address: [address] [place] [address] Result Comment: eAG: (Estimated average glucose) is a calculated value from HgbA1c and is provider relations representative of the average blood glucose level in the last 2-3 month period. Performed By: #### 5 5454-3 ####[facility] LABCLIA [id number] [place] [address] [place] HbA1c (Bld) [Mass fraction] 4.9 % Normal 4.3-5.6 [facility] Comment on above: Order Comment: Vero [facility] Type: BLOOD SPECIMENOrdering Facility: [facility] Address: [address] [place] [address] Result Comment: [place] Diabetes Association guidelines indicate that patients with HgbA1c in the range 5.7-6.4% are at increased risk for development of diabetes, and intervention by lifestyle modification may be beneficial. HgbA1c greater or equal to 6.5% is considered diagnostic of diabetes. Performed By: #### 5 5454-3 ####[facility] LABCLIA [id number] [place] [id number] [place] TSH SerPl-aCncon 12-20-2023 TSH Qn 4.170 m[IU]/L Normal 0.270-4.200 [facility] Comment on above: Order Comment: Speci men Type: BLOOD SPECIMENOrdering Facility: [facility] Address: [address] [place] [address] Performed By: #### 2 143-6, 3016-3 ####[facility] LABCLIA [id number] [place] [id number] [place] Office Visiton 12-09-2023 Follow-up visit [id number] Juan Jose Austin 1940 M Date Provider Department Center 12/09/2023 JOSESITO GARY CARD [facility] Family History Problem Relation Age of Onset Heart failure Mother Family Status - Relation Status Age at Mother Level of Service:15611 [place] OFFICE/OUTPATIENT ESTABLISHED MOD MDM 30 MIN Normal [facility] CBC W Auto Differential pane l (Bld)on 11-29-2023 Basophils (Bld) [#/Vol] 0.06 10*3/uL Normal <0.11 [facility] Comment on above: Order Comment: Speci men Type: BLOOD SPECIMENOrdering Facility: [facility] Address: [address] [place] [address] Performed By: #### 5 7021-8 ####[facility] LABCLIA [id number] [place] [address] Basophils/100 WBC (Bld) 1.0 % Normal [facility] Comment on above: Order Comment: Speci men Type: BLOOD SPECIMENOrdering Facility: [facility] Address: [address] [place] [address] Performed By: #### 5 7021-8 ####[facility] LABCLIA [id number] [place] [address] Differential cell count method Nom (Bld) Auto Normal [facility] Comment on above: Order Comment: Speci men Type: BLOOD SPECIMENOrdering Facility: [facility] Address: [address] [place] [address] Performed By: #### 5 7021-8 ####[facility] LABCLIA [id number] [place] [address] Eosinophils (Bld) [#/Vol] 0.08 10*3/uL Normal <0.46 [facility] Comment on above: Order Comment: Speci men Type: BLOOD SPECIMENOrdering Facility: [facility] Address: [address] [place] [address] Performed By: #### 5 7021-8 ####[facility] LABCLIA [id number] [place] [address] Eosinophils/100 WBC (Bld) 1.3 % Normal [facility] Comment on above: Order Comment: Speci men Type: BLOOD SPECIMENOrdering Facility: [facility] Address: [address] [place] [address] Performed By: #### 5 7021-8 ####[facility] LABCLIA [id number] [place] [address] Erythrocyte distribution width (RBC) [Ratio] 15.0 % Normal 11.5-15.0 [facility] Comment on above: Order Comment: Speci men Type: BLOOD SPECIMENOrdering Facility: [facility] Address: [address] [place] [address] Performed By: #### 5 7021-8 ####[facility] LABCLIA [id number] [place] [address] Hematocrit (Bld) [Volume fraction] 40.4 % Normal 39.0-51.0 [facility] Comment on above: Order Comment: Speci men Type: BLOOD SPECIMENOrdering Facility: [facility] Address: [address] [place] [address] Performed By: #### 5 7021-8 ####[facility] LABCLIA [id number] [place] [address] Hemoglobin (Bld) [Mass/Vol] 13.6 g/dL Normal 13.0-17.0 [facility] Comment on above: Order Comment: Speci men Type: BLOOD SPECIMENOrdering Facility: [facility] Address: [address] [place] [address] Performed By: #### 5 7021-8 ####[facility] LABCLIA [id number] [place] [address] Immature granulocytes (Bld) [#/Vol] 0.03 10*3/uL Normal <0.10 [facility] Comment on above: Order Comment: Speci men Type: BLOOD SPECIMENOrdering Facility: [facility] Address: [address] [place] [address] Performed By: #### 5 7021-8 ####[facility] LABCLIA [id number] [place] [address] Immature granulocytes/100 WBC (Bld) 0.5 % Normal [facility] Comment on above: Order Comment: Speci men Type: BLOOD SPECIMENOrdering Facility: [facility] Address: [address] [place] [address] Performed By: #### 5 7021-8 ####[facility] LABCLIA [id number] [place] [address] Lymphocytes (Bld) [#/Vol] 0.63 10*3/uL Low 1.00-4.00 [facility] Comment on above: Order Comment: Speci men Type: BLOOD SPECIMENOrdering Facility: [facility] Address: [address] [place] [address] Performed By: #### 5 7021-8 ####[facility] LABCLIA [id number] [place] [address] Lymphocytes/100 WBC (Bld) 10.5 % Normal [facility] Comment on above: Order Comment: Speci men Type: BLOOD SPECIMENOrdering Facility: [facility] Address: [address] [place] [address] Performed By: #### 5 7021-8 ####[facility] LABCLIA [id number] [place] [address] MCH (RBC) [Entitic mass] 27.5 pg Normal 26.0-34.0 [facility] Comment on above: Order Comment: Speci men Type: BLOOD SPECIMENOrdering Facility: [facility] Address: [address] [place] [address] Performed By: #### 5 7021-8 ####[facility] LABCLIA [id number] [place] [address] MCHC (RBC) [Mass/Vol] 33.7 g/dL Normal 30.5-36.0 [facility] Comment on above: Order Comment: Speci men Type: BLOOD SPECIMENOrdering Facility: [facility] Address: [address] [place] [address] Performed By: #### 5 7021-8 ####[facility] LABIA [id number] [place] [address] MCV (RBC) [Entitic vol] 81.6 fL Normal 80.0-100.0 [facility] Comment on above: Order Comment: Speci men Type: BLOOD SPECIMENOrdering Facility: [facility] Address: [address] [place] [address] Performed By: #### 5 7021-8 ####[facility] LABCLIA [id number] [place] [address] Monocytes (Bld) [#/Vol] 0.47 10*3/uL Normal <0.87 [facility] Comment on above: Order Comment: Speci men Type: BLOOD SPECIMENOrdering Facility: [facility] Address: [address] [place] [address] Performed By: #### 5 7021-8 ####[facility] LABCLIA [id number] [place] [address] Monocytes/100 WBC (Bld) 7.9 % Normal [facility] Comment on above: Order Comment: Speci men Type: BLOOD SPECIMENOrdering Facility: [facility] Address: [address] [place] [address] Performed By: #### 5 7021-8 ####[facility] LABCLIA [id number] [place] [address] Neutrophils (Bld) [#/Vol] 4.71 10*3/uL Normal 1.45-7.50 [facility] Comment on above: Order Comment: Speci men Type: BLOOD SPECIMENOrdering Facility: [facility] Address: [address] [place] [address] Performed By: #### 5 7021-8 ####[facility] LABCLIA [id number] [place] [address] Neutrophils/100 WBC (Bld) 78.8 % Normal [facility] Comment on above: Order Comment: Speci men Type: BLOOD SPECIMENOrdering Facility: [facility] Address: [address] [place] [address] Performed By: #### 5 7021-8 ####[facility] LABCLIA [id number] [place] [address] Nucleated RBC (Bld) [#/Vol] 10*3/uL Normal <0.01 [facility] Comment on above: Order Comment: Speci men Type: BLOOD SPECIMENOrdering Facility: [facility] Address: [address] [place] [address] Performed By: #### 5 7021-8 ####[facility] LABCLIA [id number] [place] [address] Nucleated RBC/100 WBC (Bld) [Ratio] 0.0 /100 WBC Normal [facility] Comment on above: Order Comment: Speci men Type: BLOOD SPECIMENOrdering Facility: [facility] Address: [address] [place] [address] Performed By: #### 5 7021-8 ####[facility] LABCLIA [id number] [place] [address] Platelet mean volume (Bld) [Entitic vol] 8.5 fL Low 9.0-12.7 [facility] Comment on above: Order Comment: Speci men Type: BLOOD SPECIMENOrdering Facility: [facility] Address: [address] [place] [address] Performed By: #### 5 7021-8 ####[facility] LABCLIA [id number] [place] [address] Platelets (Bld) [#/Vol] 234 10*3/uL Normal 150-400 [facility] Comment on above: Order Comment: Speci men Type: BLOOD SPECIMENOrdering Facility: [facility] Address: [address] [place] [address] Performed By: #### 5 7021-8 ####[facility] LABIA [id number] [place] [address] RBC (Bld) [#/Vol] 4.95 10*6/uL Normal 4.20-6.00 [facility] Comment on above: Order Comment: Speci men Type: BLOOD SPECIMENOrdering Facility: [facility] Address: [address] [place] [address] Performed By: #### 5 7021-8 ####[facility] LABIA [id number] [place] [address] WBC (Bld) [#/Vol] 5.98 10*3/uL Normal 3.70-11.00 [facility] Comment on above: Order Comment: Speci men Type: BLOOD SPECIMENOrdering Facility: [facility] Address: [address] [place] [address] Performed By: #### 5 7021-8 ####[facility] LABIA [id number] [place] [address] CNOVSPon 11-29-2023 CNOVSP Normal [facility] metabolic 2000 panelon 11-29-2023 Albumin [Mass/Vol] 3.5 g/dL Low 3.9-4.9 [facility] Comment on above: Order Comment: Speci men Type: BLOOD SPECIMENOrdering Facility: [facility] Address: [address] [place] [address] Performed By: #### 2 4323-8 ####[facility] LABCLIA [id number] [place] [address] ALP [Catalytic activity/Vol] 68 U/L Normal 38-113 [facility] Comment on above: Order Comment: Speci men Type: BLOOD SPECIMENOrdering Facility: [facility] Address: [address] [place] [address] Performed By: #### 2 4323-8 ####[facility] LABCLIA [id number] [place] [address] ALT [Catalytic activity/Vol] 15 U/L Normal 10-54 [facility] Comment on above: Order Comment: Speci men Type: BLOOD SPECIMENOrdering Facility: [facility] Address: [address] [place] [address] Performed By: #### 2 4323-8 ####[facility] LABCLIA [id number] [place] [address] Anion gap [Moles/Vol] 9 mmol/L Normal 9-18 [facility] Comment on above: Order Comment: Speci men Type: BLOOD SPECIMENOrdering Facility: [facility] Address: [address] [place] [address] Performed By: #### 2 4323-8 ####[facility] LABCLIA [id number] [place] [address] AST [Catalytic activity/Vol] 21 U/L Normal 14-40 [facility] Comment on above: Order Comment: Speci men Type: BLOOD SPECIMENOrdering Facility: [facility] Address: [address] [place] [address] Performed By: #### 2 4323-8 ####[facility] LABCLIA [id number] [place] [address] Bilirubin [Mass/Vol] 0.6 mg/dL Normal 0.2-1.3 [facility] Comment on above: Order Comment: Speci men Type: BLOOD SPECIMENOrdering Facility: [facility] Address: [address] [place] [address] Performed By: #### 2 4323-8 ####[facility] LABCLIA [id number] [place] [address] Calcium [Mass/Vol] 8.9 mg/dL Normal 8.5-10.2 [facility] Comment on above: Order Comment: Speci men Type: BLOOD SPECIMENOrdering Facility: [facility] Address: [address] [place] [address] Performed By: #### 2 4323-8 ####[facility] LABCLIA [id number] [place] [address] Chloride [Moles/Vol] 100 mmol/L Normal 97-105 [facility] Comment on above: Order Comment: Speci men Type: BLOOD SPECIMENOrdering Facility: [facility] Address: [address] [place] [address] Performed By: #### 2 4323-8 ####[facility] LABCLIA [id number] [place] [address] CO2 [Moles/Vol] 27 mmol/L Normal 22-30 [facility] Comment on above: Order Comment: Speci men Type: BLOOD SPECIMENOrdering Facility: [facility] Address: [address] [place] [address] Performed By: #### 2 4323-8 ####[facility] LABCLIA [id number] [place] [address] Creatinine [Mass/Vol] 1.87 mg/dL High 0.73-1.22 [facility] Comment on above: Order Comment: Speci men Type: BLOOD SPECIMENOrdering Facility: [facility] Address: [address] [place] [address] Performed By: #### 2 4323-8 ####[facility] LABCLIA [id number] [place] [address] Creatinine and Glomerular filtration rate.predicted panel (S/P/Bld) 35 mL/min/1.73m??? Low >=60 [facility] Comment on above: Order Comment: Vero barton Type: BLOOD SPECIMENOrdering Facility: [facility] Address: [address] [place] [address] Result Comment: Viviana mated Glomerular Filtration Rate [...] #### 2 4323-8 ####[facility] LABCLIA [id number] [place] [address] Glucose [Mass/Vol] 126 mg/dL High 74-99 [facility] Comment on above: Order Comment: Vero barton Type: BLOOD SPECIMENOrdering Facility: [facility] Address: [address] [place] [address] Result Comment: The [place] Diabetes Association (ADA) provides guidance for cutoff [...] Standards of Medical Care in Diabetes 2016, [place] [employer]. Diabetes Care. 2016.39(Suppl 1). Performed By: #### 2 4323-8 ####[facility] LABCLIA [id number] [place] [address] Potassium [Moles/Vol] 3.5 mmol/L Low 3.7-5.1 [facility] Comment on above: Order Comment: Speci men Type: BLOOD SPECIMENOrdering Facility: [facility] Address: [address] [place], [place] [address] Performed By: #### 2 4323-8 ####[facility] LABCLIA [id number] [place] [address] Protein [Mass/Vol] 5.4 g/dL Low 6.3-8.0 [facility] Comment on above: Order Comment: Speci men Type: BLOOD SPECIMENOrdering Facility: [facility] Address: [address] [place] [address] Performed By: #### 2 4323-8 ####[facility] LABCLIA [id number] [place] [address] Sodium [Moles/Vol] 136 mmol/L Normal 136-144 [facility] Comment on above: Order Comment: Speci men Type: BLOOD SPECIMENOrdering Facility: [facility] Address: [address] [place] [address] Performed By: #### 2 4323-8 ####[facility] LABCLIA [id number] [place] [address] Urea nitrogen [Mass/Vol] 12 mg/dL Normal 9-24 [facility] Comment on above: Order Comment: Speci men Type: BLOOD SPECIMENOrdering Facility: [facility] Address: [address] [place] [address] Performed By: #### 2 4323-8 ####[facility] LABCLIA [id number] [place] [address] Cortshaye Koehler 11-29-19 24 Cortisol [Mass/Vol] 11.1 ug/dL Normal 4.8-19.5 [facility] Comment on above: Order Comment: Speci men Type: BLOOD SPECIMENOrdering Facility: [facility] Address: [address] [place] [address] Result Comment: Prov ided reference range is from 6-10 AM sample collection time.Cortisol Reference Range: 6-10 AM = 4.8-19.5 ug/dL, 4-8 PM = 2.5-11.9 ug/dL Performed By: #### 3 016-3, 2143-6 ####[facility] LABCLIA [id number] [place] [address] [place] HbA1c (Bld)on 11-29-2023 Average glucose Estimated from glycated hemoglobin (Bld) [Mass/Vol] 100 mg/dL Normal [facility] Comment on above: Order Comment: Vero barton Type: BLOOD SPECIMENOrdering Facility: [facility] Address: [address] [place] [address] Result Comment: eAG: (Estimated average glucose) is a calculated value from HgbA1c and is provider relations representative of the average blood glucose level in the last 2-3 month period. Performed By: #### 5 5454-3 ####[facility] LABIA [id number] [place] [address] [place] HbA1c (Bld) [Mass fraction] 5.1 % Normal 4.3-5.6 [facility] Comment on above: Order Comment: Vero barton Type: BLOOD SPECIMENOrdering Facility: [facility] Address: [address] [place] [address] Result Comment: [place] Diabetes Association guidelines indicate that patients with HgbA1c in the range 5.7-6.4% are at increased risk for development of diabetes, and intervention by lifestyle modification may be beneficial. HgbA1c greater or equal to 6.5% is considered diagnostic of diabetes. Performed By: #### 5 5454-3 ####[facility] LABCLIA [id number] [place] [address] [place] TSH SerPl-aCncon 11-29-2023 TSH Qn 4.370 m[IU]/L High 0.270-4.200 [facility] Comment on above: Order Comment: Speci men Type: BLOOD SPECIMENOrdering Facility: [facility] Address: [address] [place] [address] Performed By: #### 3 016-3, 2143-6 ####[facility] LABCLIA [id number] [facility]ENTERMarisabel ARREDONDO [id number] [address] [place] CNPNon 11-21-2023 CNPN Normal [facility] CNPNon 11-14-2023 CNPN Normal [facility] CNPNon 11-06-2023 CNPN Normal [facility] CBC AND AUTO DIFFon 11-02-19 ABSOLUTE BASOPHIL 0.0 X10E9/L Normal 0.0-0.2 [facility] Comment on above: Performed By: #### C BCA, 55982-6, CMP, 3040-3, 31196-4, 01098- 9 #### [facility] ([id number]) [address] [place] [address] ABSOLUTE NEUTROPHIL 8.0 X10E9/L High 1.5-6.6 [facility] Comment on above: Performed By: #### C BCA, 56606-0, CMP, 3040-3, 17210-6, 06260- 9 #### [facility] ([id number]) [address] [place] [address] Basophils/100 WBC (Bld) 0.3 % Normal [facility] Comment on above: Performed By: #### C BCA, 97616-6, CMP, 3040-3, 65675-0, 19816- 9 #### [facility] ([id number]) [address] [place] [address] Eosinophils (Bld) [#/Vol] 0.1 10*3/uL Normal 0.0-0.4 [facility] Comment on above: Performed By: #### C BCA, 80176-3, CMP, 3040-3, 68873-9, 57448- 9 #### [facility] ([id number]) [address] [place] [address] Eosinophils/100 WBC (Bld) 0.9 % Normal [facility] Comment on above: Performed By: #### C BCA, 20675-2, CMP, 3040-3, 84079-6, 99005- 9 #### [facility] ([id number]) [address] [place] [address] Erythrocyte distribution width (RBC) [Ratio] 14.8 % Normal 11.5-15.0 [facility] Comment on above: Performed By: #### C BCA, 64905-2, CMP, 3040-3, 13090-2, - #### [facility] ([id number]) [address] [place] [address]48 Hematocrit (Bld) [Volume fraction] 40.4 % Normal 39-49 [facility] Comment on above: Performed By: #### C BCA, 12423-6, CMP, 3040-3, 06119-7, - #### [facility] ([id number]) [address] [place] [address] 18898 Hemoglobin (Bld) [Mass/Vol] 14.1 g/dL Normal 13.0-17.0 [facility] Comment on above: Performed By: #### C BCA, 28687-1, CMP, 3040-3, 22731-1, 29684- #### [facility] ([id number]) [address] [place] [address] Lymphocytes (Bld) [#/Vol] 0.4 10*3/uL Low 1.0-3.5 [facility] Comment on above: Performed By: #### C BCA, 77967-2, CMP, 3040-3, 18232-1, 12926- 9 #### [facility] ([id number]) [address] [place] [address] 43221 Lymphocytes/100 WBC (Bld) 4.7 % Normal [facility] Comment on above: Performed By: #### C BCA, 27235-6, CMP, 3040-3, 97749-9, 95736- 9 #### [facility] ([id number]) [address] [place] [address] 52091 MCH (RBC) [Entitic mass] 27.5 pg Normal 27-34 [facility] Comment on above: Performed By: #### C BCA, 92640-5, CMP, 3040-3, 54638-0, 96794- 9 #### [facility] ([id number]) [address] [place] [address] 35823 MCHC (RBC) [Mass/Vol] 35.0 g/dL Normal 32-36 [facility] Comment on above: Performed By: #### C BCA, 59359-9, CMP, 3040-3, 62336-8, 11223- 9 #### [facility] ([id number]) [address] [place], [place] [address] MCV (RBC) [Entitic vol] 79 fL Low 80-100 [facility] Comment on above: Performed By: #### C BCA, 61306-7, CMP, 3040-3, 10699-8, 80491- #### [facility] ([id number]) [address] [place] [address] 18296 Monocytes (Bld) [#/Vol] 0.7 10*3/uL Normal 0-0.9 [facility] Comment on above: Performed By: #### C BCA, 67998-1, CMP, 3040-3, 39180-9, 97173- 9 #### [facility] ([id number]) [address] [place] [address] 96811 Monocytes/100 WBC (Bld) 7.9 % Normal [facility] Comment on above: Performed By: #### C BCA, 12873-4, CMP, 3040-3, 65709-8, 12689- 9 #### [facility] ([id number]) [address] [place] [address]87 Neutrophils/100 WBC (Bld) 86.2 % Normal [facility] Comment on above: Performed By: #### C BCA, 77046-7, CMP, 3040-3, 76678-6, 35868- 9 #### [facility] ([id number]) [address] [place] [address] 80048 Platelet mean volume (Bld) [Entitic vol] 6.9 fL Low 7-12 [facility] Comment on above: Performed By: #### C BCA, 70848-3, CMP, 3040-3, 30964-8, 52956- 9 #### [facility] ([id number]) [address] [place] [address] 17518 Platelets (Bld) [#/Vol] 345 10*3/uL Normal 150-450 [facility] Comment on above: Performed By: #### C BCA, 13901-4, CMP, 3040-3, 99698-4, 84199- 9 #### [facility] ([id number]) [address] [place] [address] 57994 RBC COUNT 5.13 X10E12/L Normal 4.10-5.70 [facility] Comment on above: Performed By: #### C BCA, 50674-2, CMP, 3040-3, 26107-5, 64104- 9 #### [facility] ([id number]) [address] [place] [address] 45618 WBC (Bld) [#/Vol] 9.3 10*3/uL Normal 4.0-11.0 [facility] Comment on above: Performed By: #### C BCA, 82253-6, CMP, 3040-3, 48234-7, 46166- 9 #### [facility] ([id number]) [address] [place] [address] COMPREHENSIVE METABOLIC PANE Taj 11-02-2023 Albumin [Mass/Vol] 3.2 g/dL Normal 3.2-5.3 [facility] Comment on above: Performed By: #### C BCA, 64291-9, CMP, 3040-3, 49245-8, 86101- 9 #### [facility] ([id number]) [address] [place] [address] 15021 ALP [Catalytic activity/Vol] 54 U/L Normal 39-130 [facility] Comment on above: Performed By: #### C BCA, 88144-7, CMP, 3040-3, 97581-4, 44871- 9 #### [facility] ([id number]) [address] [place] [address] 08361 ALT [Catalytic activity/Vol] 19 U/L Normal 0-40 [facility] Comment on above: Performed By: #### C BCA, 17255-3, CMP, 3040-3, 09313-5, 29073- 9 #### [facility] ([id number]) [address] [place] [address] 08755 Anion gap [Moles/Vol] 9 mmol/L Normal 5-15 [facility] Comment on above: Performed By: #### C BCA, 49949-4, CMP, 3040-3, 51538-4, 93006- 9 #### [facility] ([id number]) [address] [place] [address] 31430 AST [Catalytic activity/Vol] 24 U/L Normal 0-41 [facility] Comment on above: Performed By: #### C BCA, 39496-5, CMP, 3040-3, 42383-5, 39426- 9 #### [facility] ([id number]) [address] [place] [address] 66463 Bilirubin [Mass/Vol] 0.9 mg/dL Normal 0.3-1.2 [facility] Comment on above: Performed By: #### C BCA, 16505-3, CMP, 3040-3, 96174-9, 71270- 9 #### [facility] ([id number]) [address] [place] [address] 11259 Calcium [Mass/Vol] 8.3 mg/dL Low 8.5-10.5 [facility] Comment on above: Performed By: #### C BCA, 80730-3, CMP, 3040-3, 59671-9, 75364- 9 #### [facility] ([id number]) [address] [place] [address] 20459 Chloride [Moles/Vol] 99 mmol/L Normal 98-109 [facility] Comment on above: Performed By: #### C BCA, 87608-5, CMP, 3040-3, 06706-6, 33145- 9 #### [facility] ([id number]) [address] [place] [address] 23804 CO2 [Moles/Vol] 24 mmol/L Normal 22-32 [facility] Comment on above: Performed By: #### C BCA, 72684-1, CMP, 3040-3, 78239-3, 18679- 9 #### [facility] ([id number]) [address] [place] [address] 32897 Creatinine [Mass/Vol] 1.85 mg/dL High 0.70-1.20 [facility] Comment on above: Result Comment: METH OD TRACEABLE TO IDMS STANDARD Performed By: #### C BCA, 93626-5, CMP, 3040-3, 14364-8, 08244-8 #### [facility] ([id number]) [address] [place] [address] 48332 GFR/1.73 sq M.predicted among non-blacks MDRD (S/P/Bld) [Vol rate/Area] 35 mL/min/{1.73_m2} Low >59 [facility] Comment on above: Result Comment: Reported eGFR is based on the CKD-EPI 2020 equation that does not use a race coefficient. Performed By: #### C BCA, 47756-9, CMP, 3040-3, 81289-8, 09637-9 #### [facility] ([id number]) [address] [place] [address] 60602 Glucose [Mass/Vol] 118 mg/dL High 65-99 [facility] Comment on above: Performed By: #### C BCA, 02488-3, CMP, 3040-3, 65445-4, 47706- 9 #### [facility] ([id number]) [address] [place], [place] [address] Potassium [Moles/Vol] 3.9 mmol/L Normal 3.5-5.0 [facility] Comment on above: Performed By: #### C BCA, 63585-4, CMP, 3040-3, 56492-8, 64167- 9 #### [facility] ([id number]) [address] [place] [address] 20894 Protein [Mass/Vol] 5.5 g/dL Low 6.0-8.0 [facility] Comment on above: Performed By: #### C BCA, 67855-4, CMP, 3040-3, 41155-8, 57853- 9 #### [facility] ([id number]) [address] [place] [address] 11373 Sodium [Moles/Vol] 132 mmol/L Low 134-146 [facility] Comment on above: Performed By: #### C BCA, 37044-3, CMP, 3040-3, 95431-4, 52184- 9 #### [facility] ([id number]) [address] [place] [address] 82360 Urea nitrogen [Mass/Vol] 30 mg/dL High 5-27 [facility] Comment on above: Performed By: #### C BCA, 27593-9, CMP, 3040-3, 79389-5, 85720- 9 #### [facility] ([id number]) [address] [place] [address] ABDOMEN AND PELVIS W CONT on [...] Licea MD on 11/02/2023 2:43 PM Normal [facility] LIPASEon 11-02-2023 Lipase [Catalytic activity/Vol] 45 U/L High 17-40 [facility] Comment on above: Performed By: #### C BETH, 60208-8, CMP, 3040-3, , #### [facility] ([id number]) [address] [place] [address] 80730 Lactate (P michelle) [Moles/Vol]o n 11-02-2023 LACTATE W/REFLEX 1.2 mmol/L Normal 0.4-2.0 [facility] Comment on above: Result Comment: Result did not trigger repeat Lactate, re-order if needed. Performed By: #### C BETH, 71414-9, CMP, 3040-3, , #### [facility] ([id number]) [address] [place] [address] MAGNESIUMon 11-02-2023 Magnesium [Mass/Vol] 1.7 mg/dL Low 1.8-2.[address] [facility] Comment on above: Performed By: #### C BCA, 16302-6, CMP, 3040-3, , #### [facility] ([id number]) [address] [place] [address] SARS/FLU A+B/RSV by NAAT/Mol ecularon 11-02-2023 SARS/FLU [...] operators who are performing tests using either GenePAK DX or GenePAK Infinity systems and is limited to laboratories that [...] specimen repeat. Fact Sheet for Healthcare Providers: https://www.[facility].gov/co ritesh/863595/download Fact Sheet for Patients: https://www.[facility].gov/co ritesh/263709/download Normal [facility] Comment on above: Performed By: #### C OVFLR #### [facility] ([id number]) [address] [place] [address] 70265 TROPONIN Ion 11-02-2023 Troponin I.cardiac [Mass/Vol] 0.07 ng/mL High 0.00-0.04 [facility] Comment on above: Result Comment: Concentrations greater than or equal to 0.05 ng/ml are considered elevated. Elevations of Troponin may be due to causes other than myocardial ischemia. Recommend serial Troponin testing be performed. Performed By: #### 1 0839-9 #### [facility] ([id number]) [address] [place] [address] 96949 Troponin I.cardiac [Mass/Vol] 0.07 ng/mL High 0.00-0.04 [facility] Comment on above: Result Comment: Concentrations greater than or equal to 0.05 ng/ml are considered elevated. Elevations of Troponin may be due to causes other than myocardial ischemia. Recommend serial Troponin testing be performed. Performed By: #### C BCA, 06157-2, CMP, 3040-3, 70969-7, 83624-9 #### [facility] ([id number]) [address] [place] [address] 68740 URN MACROSCOPIC NURon 2023 BILIRUBIN JUDY Negative Normal NEG [facility] Comment on above: Performed By: #### N UM #### [facility] ([id number]) [address] [place] [address] 46556 BLOOD/HGB JUDY Trace Abnormal NEG [facility] Comment on above: Performed By: #### N UM #### [facility] ([id number]) [address] [place] [address] 35071 GLUCOSE JUDY Negative Normal NEG [facility] Comment on above: Performed By: #### N UM #### [facility] ([id number]) [address] [place] [address] 61657 KETONES JUDY Negative Normal NEG [facility] Comment on above: Performed By: #### N UM #### [facility] ([id number]) [address] [place] [address] 59679 LEUKOCYTE ESTERASE JUDY Negative Normal NEG [facility] Comment on above: Performed By: #### N UM #### [facility] ([id number]) [address] [place] [address] 02629 NITRITE JUDY Negative Normal NEG [facility] Comment on above: Performed By: #### N UM #### [facility] ([id number]) [address] [place] [address] 33876 PH JUDY 5.5 Normal 5.0-8.5 [facility] Comment on above: Performed By: #### N UM #### [facility] ([id number]) [address] [place] [address] 58707 PROTEIN JUDY Negative Normal NEG [facility] Comment on above: Performed By: #### N UM #### [facility] ([id number]) [address] [place] [address] 33359 SPECIFIC GRAVITY JUDY <=1.005 Normal 1.003-1.035 [facility] Comment on above: Performed By: #### N UM #### [facility] ([id number]) [address] [place] [address] 74549 UROBILINOGEN JUDY 0.2 eu/dL Normal <1.1 [facility] Comment on above: Performed By: #### N UM #### [facility] ([id number]) [address] [place] [address] 25176 CNPNon 10-29-2023 CNPN Normal [facility] CBC W Auto Differential pane l (Bld)on 10-10-2023 Basophils (Bld) [#/Vol] 0.08 10*3/uL Normal <0.11 [facility] Comment on above: Order Comment: Speci men Type: BLOOD SPECIMENOrdering Facility: [facility] Address: [address] [place] [address] Performed By: #### 5 7021-8 ####[facility] LABCLIA [id number] [place] [address] Basophils/100 WBC (Bld) 1.0 % Normal [facility] Comment on above: Order Comment: Speci men Type: BLOOD SPECIMENOrdering Facility: [facility] Address: [address] [place] [address] Performed By: #### 5 7021-8 ####[facility] LABCLIA [id number] [place] [address] Differential cell count method Nom (Bld) Auto Normal [facility] Comment on above: Order Comment: Speci men Type: BLOOD SPECIMENOrdering Facility: [facility] Address: [address] [place] [address] Performed By: #### 5 7021-8 ####[facility] LABCLIA [id number] [place] [address] Eosinophils (Bld) [#/Vol] 0.14 10*3/uL Normal <0.46 [facility] Comment on above: Order Comment: Speci men Type: BLOOD SPECIMENOrdering Facility: [facility] Address: [address] [place] [address] Performed By: #### 5 7021-8 ####[facility]CLIA [id number] [place] [address] Eosinophils/100 WBC (Bld) 1.8 % Normal [facility] Comment on above: Order Comment: Speci men Type: BLOOD SPECIMENOrdering Facility: [facility] Address: [address] [place] [address] Performed By: #### 5 7021-8 ####[facility]CLIA [id number] [place] [address] Erythrocyte distribution width (RBC) [Ratio] 14.0 % Normal 11.5-15.0 [facility] Comment on above: Order Comment: Speci men Type: BLOOD SPECIMENOrdering Facility: [facility] Address: [address] [place] [address] Performed By: #### 5 7021-8 ####[facility]CLIA [id number] [place] [address] Hematocrit (Bld) [Volume fraction] 40.5 % Normal 39.0-51.0 [facility] Comment on above: Order Comment: Speci men Type: BLOOD SPECIMENOrdering Facility: [facility] Address: [address] [place] [address] Performed By: #### 5 7021-8 ####[facility]CL[facility] [id number] [place] [address] Hemoglobin (Bld) [Mass/Vol] 13.1 g/dL Normal 13.0-17.0 [facility] Comment on above: Order Comment: Speci men Type: BLOOD SPECIMENOrdering Facility: [facility] Address: [address] [place] [address] Performed By: #### 5 7021-8 ####[facility]CLIA [id number] [place] [address] Immature granulocytes (Bld) [#/Vol] 0.04 10*3/uL Normal <0.10 [facility] Comment on above: Order Comment: Speci men Type: BLOOD SPECIMENOrdering Facility: [facility] Address: [address] [place] [address] Performed By: #### 5 7021-8 ####[facility]CLIA [id number] [place] [address] Immature granulocytes/100 WBC (Bld) 0.5 % Normal [facility] Comment on above: Order Comment: Speci men Type: BLOOD SPECIMENOrdering Facility: [facility] Address: [address] [place] [address] Performed By: #### 5 7021-8 ####[facility]CLIA [id number] [place] [address] Lymphocytes (Bld) [#/Vol] 0.81 10*3/uL Low 1.00-4.00 [facility] Comment on above: Order Comment: Speci men Type: BLOOD SPECIMENOrdering Facility: [facility] Address: [address] [place] [address] Performed By: #### 5 7021-8 ####[facility]CLIA [id number] [place] [address] Lymphocytes/100 WBC (Bld) 10.3 % Normal [facility] Comment on above: Order Comment: Speci men Type: BLOOD SPECIMENOrdering Facility: [facility] Address: [address] [place] [address] Performed By: #### 5 7021-8 ####[facility]CLIA [id number] [place] [address] MCH (RBC) [Entitic mass] 27.8 pg Normal 26.0-34.0 [facility] Comment on above: Order Comment: Speci men Type: BLOOD SPECIMENOrdering Facility: [facility] Address: [address] [place] [address] Performed By: #### 5 7021-8 ####[facility]CLIA [id number] [place] [address] MCHC (RBC) [Mass/Vol] 32.3 g/dL Normal 30.5-36.0 [facility] Comment on above: Order Comment: Speci men Type: BLOOD SPECIMENOrdering Facility: [facility] Address: [address] [place] [address] Performed By: #### 5 7021-8 ####[facility]CL[facility] [id number] [place] [address] MCV (RBC) [Entitic vol] 85.8 fL Normal 80.0-100.0 [facility] Comment on above: Order Comment: Speci men Type: BLOOD SPECIMENOrdering Facility: [facility] Address: [address] [place] [address] Performed By: #### 5 7021-8 ####[facility]CL[facility] [id number] [place] [address] Monocytes (Bld) [#/Vol] 0.55 10*3/uL Normal <0.87 [facility] Comment on above: Order Comment: Speci men Type: BLOOD SPECIMENOrdering Facility: [facility] Address: [address] [place] [address] Performed By: #### 5 7021-8 ####[facility]CLIA [id number] [place] [address] Monocytes/100 WBC (Bld) 7.0 % Normal [facility] Comment on above: Order Comment: Speci men Type: BLOOD SPECIMENOrdering Facility: [facility] Address: [address] [place] [address] Performed By: #### 5 7021-8 ####[facility]CLIA [id number] [place] [address] Neutrophils (Bld) [#/Vol] 6.21 10*3/uL Normal 1.45-7.50 [facility] Comment on above: Order Comment: Speci men Type: BLOOD SPECIMENOrdering Facility: [facility] Address: [address] [place] [address] Performed By: #### 5 7021-8 ####[facility]CLIA [id number] [place] [address] Neutrophils/100 WBC (Bld) 79.4 % Normal [facility] Comment on above: Order Comment: Speci men Type: BLOOD SPECIMENOrdering Facility: [facility] Address: [address] [place] [address] Performed By: #### 5 7021-8 ####[facility]CLIA [id number] [place] [address] Nucleated RBC (Bld) [#/Vol] 10*3/uL Normal <0.01 [facility] Comment on above: Order Comment: Speci men Type: BLOOD SPECIMENOrdering Facility: [facility] Address: [address] [place] [address] Performed By: #### 5 7021-8 ####[facility]CLIA [id number] [place] [address] Nucleated RBC/100 WBC (Bld) [Ratio] 0.0 /100 WBC Normal [facility] Comment on above: Order Comment: Speci men Type: BLOOD SPECIMENOrdering Facility: [facility] Address: [address] [place] [address] Performed By: #### 5 7021-8 ####[facility]CL[facility] [id number] [place] [address] Platelet mean volume (Bld) [Entitic vol] 8.6 fL Low 9.0-12.7 [facility] Comment on above: Order Comment: Speci men Type: BLOOD SPECIMENOrdering Facility: [facility] Address: [address] [place] [address] Performed By: #### 5 7021-8 ####[facility]CL[facility] [id number] [place] [address] Platelets (Bld) [#/Vol] 253 10*3/uL Normal 150-400 [facility] Comment on above: Order Comment: Speci men Type: BLOOD SPECIMENOrdering Facility: [facility] Address: [address] [place] [address] Performed By: #### 5 7021-8 ####[facility]CLIA [id number] [place] [address] RBC (Bld) [#/Vol] 4.72 10*6/uL Normal 4.20-6.00 [facility] Comment on above: Order Comment: Speci men Type: BLOOD SPECIMENOrdering Facility: [facility] Address: [address] [place] [address] Performed By: #### 5 7021-8 ####[facility] LABIA [id number] [place] [address] WBC (Bld) [#/Vol] 7.83 10*3/uL Normal 3.70-11.00 [facility] Comment on above: Order Comment: Speci men Type: BLOOD SPECIMENOrdering Facility: [facility] Address: [address] [place] [address] Performed By: #### 5 7021-8 ####[facility] LABIA [id number] [place] [address] CNOVSPon 10-10-2023 CNOVSP Normal [facility] Comprehensive metabolic 2000 panelon 10-10-2023 Albumin [Mass/Vol] 4.0 g/dL Normal 3.9-4.9 [facility] Comment on above: Order Comment: Speci men Type: BLOOD SPECIMENOrdering Facility: [facility] Address: [address] [place] [address] Performed By: #### 2 4323-8 ####[facility] LABIA [id number] [place] [address] ALP [Catalytic activity/Vol] 75 U/L Normal 38-113 [facility] Comment on above: Order Comment: Speci men Type: BLOOD SPECIMENOrdering Facility: [facility] Address: [address] [place] [address] Performed By: #### 2 4323-8 ####[facility]CLIA [id number] [place] [address] ALT [Catalytic activity/Vol] 15 U/L Normal 10-54 [facility] Comment on above: Order Comment: Speci men Type: BLOOD SPECIMENOrdering Facility: [facility] Address: [address] [place] [address] Performed By: #### 2 4323-8 ####[facility]CLIA [id number] [place] [address] Anion gap [Moles/Vol] 8 mmol/L Low 9-18 [facility] Comment on above: Order Comment: Speci men Type: BLOOD SPECIMENOrdering Facility: [facility] Address: [address] [place] [address] Performed By: #### 2 4323-8 ####[facility]CLIA [id number] [place] [address] AST [Catalytic activity/Vol] 23 U/L Normal 14-40 [facility] Comment on above: Order Comment: Speci men Type: BLOOD SPECIMENOrdering Facility: [facility] Address: [address] [place] [address] Performed By: #### 2 4323-8 ####[facility]CLIA [id number] [place] [address] Bilirubin [Mass/Vol] 0.4 mg/dL Normal 0.2-1.3 [facility] Comment on above: Order Comment: Speci men Type: BLOOD SPECIMENOrdering Facility: [facility] Address: [address] [place] [address] Performed By: #### 2 4323-8 ####[facility]CLIA [id number] [place] [address] Calcium [Mass/Vol] 9.0 mg/dL Normal 8.5-10.2 [facility] Comment on above: Order Comment: Speci men Type: BLOOD SPECIMENOrdering Facility: [facility] Address: [address] [place] [address] Performed By: #### 2 4323-8 ####[facility]CLIA [id number] [place] [address] Chloride [Moles/Vol] 99 mmol/L Normal 97-105 [facility] Comment on above: Order Comment: Speci men Type: BLOOD SPECIMENOrdering Facility: [facility] Address: [address] [place] [address] Performed By: #### 2 4323-8 ####[facility]CLIA [id number] [place] [address] CO2 [Moles/Vol] 27 mmol/L Normal 22-30 [facility] Comment on above: Order Comment: Speci men Type: BLOOD SPECIMENOrdering Facility: [facility] Address: [address] [place] [address] Performed By: #### 2 4323-8 ####[facility]CLIA [id number] [place] [address] Creatinine [Mass/Vol] 1.78 mg/dL High 0.73-1.22 [facility] Comment on above: Order Comment: Speci men Type: BLOOD SPECIMENOrdering Facility: [facility] Address: [address] [place] [address] Performed By: #### 2 4323-8 ####[facility]CLIA [id number] [place] [address] Creatinine and Glomerular filtration rate.predicted panel (S/P/Bld) 37 mL/min/1.73m??? Low >=60 [facility] Comment on above: Order Comment: Speci men Type: BLOOD SPECIMENOrdering Facility: [facility] Address: [address] [place] [address] Result Comment: Viviana mated Glomerular Filtration Rate [...] #### 2 4323-8 ####[facility]CLIA [id number] [place] [address] Glucose [Mass/Vol] 109 mg/dL High 74-99 [facility] Comment on above: Order Comment: Speci men Type: BLOOD SPECIMENOrdering Facility: [facility] Address: [address] [place] [address] Result Comment: The [place] Diabetes Association (ADA) provides guidance for cutoff [...] Standards of Medical Care in Diabetes 2016, [place] [employer]. Diabetes Care. 2016.39(Suppl 1). Performed By: #### 2 4323-8 ####[facility] LABCLIA [id number] [place] [address] Potassium [Moles/Vol] 3.9 mmol/L Normal 3.7-5.1 [facility] Comment on above: Order Comment: Speci men Type: BLOOD SPECIMENOrdering Facility: [facility] Address: [address] [place] [address] Performed By: #### 2 4323-8 ####[facility]CLIA [id number] [place] [address] Protein [Mass/Vol] 6.0 g/dL Low 6.3-8.0 [facility] Comment on above: Order Comment: Speci men Type: BLOOD SPECIMENOrdering Facility: [facility] Address: [address] [place] [address] Performed By: #### 2 4323-8 ####[facility]CLIA [id number] [place] [address] Sodium [Moles/Vol] 134 mmol/L Low 136-144 [facility] Comment on above: Order Comment: Speci men Type: BLOOD SPECIMENOrdering Facility: [facility] Address: [address] [place] [address] Performed By: #### 2 4323-8 ####[facility] LABCLIA [id number] [place] [address] Urea nitrogen [Mass/Vol] 29 mg/dL High 9-24 [facility] Comment on above: Order Comment: Speci men Type: BLOOD SPECIMENOrdering Facility: [facility] Address: [address] [place] [address] Performed By: #### 2 4323-8 ####[facility] LABCLIA [id number] [place] [address] Beverly Koehler 10-10-20 Cortisol [Mass/Vol] 8.6 ug/dL Normal 4.8-19.5 [facility] Comment on above: Order Comment: Speci men Type: BLOOD SPECIMENOrdering Facility: [facility] Address: [address] [place] [address] Result Comment: Prov ided reference range is from 6-10 AM sample collection time.Cortisol Reference Range: 6-10 AM = 4.8-19.5 ug/dL, 4-8 PM = 2.5-11.9 ug/dL Performed By: #### 2 143-6, 3016-3 ####[facility] LABCLIA [id number] [facility] [place] [id number] [place] HbA1c (Bld)on 10-10-2023 Average glucose Estimated from glycated hemoglobin (Bld) [Mass/Vol] 105 mg/dL Normal [facility] Comment on above: Order Comment: Farrahi men Type: BLOOD SPECIMENOrdering Facility: [facility] Address: [address] [place] [address] Result Comment: eAG: (Estimated average glucose) is a calculated value from HgbA1c and is provider relations representative of the average blood glucose level in the last 2-3 month period. Performed By: #### 5 5454-3 ####[facility] LABCLIA [id number] [place] [address] [place] HbA1c (Bld) [Mass fraction] 5.3 % Normal 4.3-5.6 [facility] Comment on above: Order Comment: Farrahi men Type: BLOOD SPECIMENOrdering Facility: [facility] Address: [address] [place] [address] Result Comment: [place] Diabetes Association guidelines indicate that patients with HgbA1c in the range 5.7-6.4% are at increased risk for development of diabetes, and intervention by lifestyle modification may be beneficial. HgbA1c greater or equal to 6.5% is considered diagnostic of diabetes. Performed By: #### 5 5454-3 ####[facility] LABCLIA [id number] [place] [address] [place] TSH SerPl-aCncon 10-10-2023 TSH Qn 2.900 m[IU]/L Normal 0.270-4.200 [facility] Comment on above: Order Comment: Farrahi men Type: BLOOD SPECIMENOrdering Facility: [facility] Address: [address] [place] [address] Performed By: #### 2 143-6, 3016-3 ####[facility] LABIA [id number] [place] [address] [place] CBC W Auto Differential pane l (Bld)on 09-19-2023 Basophils (Bld) [#/Vol] 0.05 10*3/uL Normal <0.11 [facility] Comment on above: Order Comment: Speci men Type: BLOOD SPECIMENOrdering Facility: [facility] Address: [address] [place], [place] [address] Performed By: #### 5 7021-8 ####[facility] LABCLIA [id number] [place] [address] Basophils/100 WBC (Bld) 0.5 % Normal [facility] Comment on above: Order Comment: Speci men Type: BLOOD SPECIMENOrdering Facility: [facility] Address: [address] [place] [address] Performed By: #### 5 7021-8 ####[facility] LABCLIA [id number] [place] [address] Differential cell count method Nom (Bld) Auto Normal [facility] Comment on above: Order Comment: Speci men Type: BLOOD SPECIMENOrdering Facility: [facility] Address: [address] [place] [address] Performed By: #### 5 7021-8 ####[facility] LABCLIA [id number] [place] [address] Eosinophils (Bld) [#/Vol] 0.15 10*3/uL Normal <0.46 [facility] Comment on above: Order Comment: Speci men Type: BLOOD SPECIMENOrdering Facility: [facility] Address: [address] [place] [address] Performed By: #### 5 7021-8 ####[facility] LABCLIA [id number] [place] [address] Eosinophils/100 WBC (Bld) 1.6 % Normal [facility] Comment on above: Order Comment: Speci men Type: BLOOD SPECIMENOrdering Facility: [facility] Address: [address] [place] [address] Performed By: #### 5 7021-8 ####[facility] LABCLIA [id number] [place] [address] Erythrocyte distribution width (RBC) [Ratio] 14.2 % Normal 11.5-15.0 [facility] Comment on above: Order Comment: Speci men Type: BLOOD SPECIMENOrdering Facility: [facility] Address: [address] [place] [address] Performed By: #### 5 7021-8 ####[facility] LABCLIA [id number] [place] [address] Hematocrit (Bld) [Volume fraction] 38.0 % Low 39.0-51.0 [facility] Comment on above: Order Comment: Speci men Type: BLOOD SPECIMENOrdering Facility: [facility] Address: [address] [place] [address] Performed By: #### 5 7021-8 ####[facility] LABIA [id number] [place] [address] Hemoglobin (Bld) [Mass/Vol] 12.7 g/dL Low 13.0-17.0 [facility] Comment on above: Order Comment: Speci men Type: BLOOD SPECIMENOrdering Facility: [facility] Address: [address] [place] [address] Performed By: #### 5 7021-8 ####[facility] LABCLIA [id number] [place] [address] Immature granulocytes (Bld) [#/Vol] 0.05 10*3/uL Normal <0.10 [facility] Comment on above: Order Comment: Speci men Type: BLOOD SPECIMENOrdering Facility: [facility] Address: [address] [place] [address] Performed By: #### 5 7021-8 ####[facility] LABCLIA [id number] [place] [address] Immature granulocytes/100 WBC (Bld) 0.5 % Normal [facility] Comment on above: Order Comment: Speci men Type: BLOOD SPECIMENOrdering Facility: [facility] Address: [address] [place] [address] Performed By: #### 5 7021-8 ####[facility] LABCLIA [id number] [place] [address] Lymphocytes (Bld) [#/Vol] 0.47 10*3/uL Low 1.00-4.00 [facility] Comment on above: Order Comment: Speci men Type: BLOOD SPECIMENOrdering Facility: [facility] Address: [address] [place] [address] Performed By: #### 5 7021-8 ####[facility] LABCLIA [id number] [place] [address] Lymphocytes/100 WBC (Bld) 5.0 % Normal [facility] Comment on above: Order Comment: Speci men Type: BLOOD SPECIMENOrdering Facility: [facility] Address: [address] [place] [address] Performed By: #### 5 7021-8 ####[facility] LABCLIA [id number] [place] [address] MCH (RBC) [Entitic mass] 28.2 pg Normal 26.0-34.0 [facility] Comment on above: Order Comment: Speci men Type: BLOOD SPECIMENOrdering Facility: [facility] Address: [address] [place] [address] Performed By: #### 5 7021-8 ####[facility] LABCLIA [id number] [place] [address] MCHC (RBC) [Mass/Vol] 33.4 g/dL Normal 30.5-36.0 [facility] Comment on above: Order Comment: Speci men Type: BLOOD SPECIMENOrdering Facility: [facility] Address: [address] [place] [address] Performed By: #### 5 7021-8 ####[facility] LABCLIA [id number] [place] [address] MCV (RBC) [Entitic vol] 84.3 fL Normal 80.0-100.0 [facility] Comment on above: Order Comment: Speci men Type: BLOOD SPECIMENOrdering Facility: [facility] Address: [address] [place] [address] Performed By: #### 5 7021-8 ####[facility] LABCLIA [id number] [place] [address] Monocytes (Bld) [#/Vol] 0.58 10*3/uL Normal <0.87 [facility] Comment on above: Order Comment: Speci men Type: BLOOD SPECIMENOrdering Facility: [facility] Address: [address] [place] [address] Performed By: #### 5 7021-8 ####[facility] LABCLIA [id number] [place] [address] Monocytes/100 WBC (Bld) 6.2 % Normal [facility] Comment on above: Order Comment: Speci men Type: BLOOD SPECIMENOrdering Facility: [facility] Address: [address] [place] [address] Performed By: #### 5 7021-8 ####[facility] LABCLIA [id number] [place] [address] Neutrophils (Bld) [#/Vol] 8.05 10*3/uL High 1.45-7.50 [facility] Comment on above: Order Comment: Speci men Type: BLOOD SPECIMENOrdering Facility: [facility] Address: [address] [place] [address] Performed By: #### 5 7021-8 ####[facility] LABCLIA [id number] [place] [address] Neutrophils/100 WBC (Bld) 86.2 % Normal [facility] Comment on above: Order Comment: Speci men Type: BLOOD SPECIMENOrdering Facility: [facility] Address: [address] [place] [address] Performed By: #### 5 7021-8 ####[facility] LABCLIA [id number] [place] [address] Nucleated RBC (Bld) [#/Vol] 10*3/uL Normal <0.01 [facility] Comment on above: Order Comment: Speci men Type: BLOOD SPECIMENOrdering Facility: [facility] Address: [address] [place] [address] Performed By: #### 5 7021-8 ####[facility] LABCLIA [id number] [place] [address] Nucleated RBC/100 WBC (Bld) [Ratio] 0.0 /100 WBC Normal [facility] Comment on above: Order Comment: Speci men Type: BLOOD SPECIMENOrdering Facility: [facility] Address: [address] [place] [address] Performed By: #### 5 7021-8 ####[facility] LABIA [id number] [place] [address] Platelet mean volume (Bld) [Entitic vol] 9.4 fL Normal 9.0-12.7 [facility] Comment on above: Order Comment: Speci men Type: BLOOD SPECIMENOrdering Facility: [facility] Address: [address] [place] [address] Performed By: #### 5 7021-8 ####[facility] LABIA [id number] [place] [address] Platelets (Bld) [#/Vol] 156 10*3/uL Normal 150-400 [facility] Comment on above: Order Comment: Speci men Type: BLOOD SPECIMENOrdering Facility: [facility] Address: [address] [place] [address] Performed By: #### 5 7021-8 ####[facility] LABCLIA [id number] [place] [address] RBC (Bld) [#/Vol] 4.51 10*6/uL Normal 4.20-6.00 [facility] Comment on above: Order Comment: Speci men Type: BLOOD SPECIMENOrdering Facility: [facility] Address: [address] [place] [address] Performed By: #### 5 7021-8 ####[facility] LABCLIA [id number] [place] [address] WBC (Bld) [#/Vol] 9.35 10*3/uL Normal 3.70-11.00 [facility] Comment on above: Order Comment: Speci men Type: BLOOD SPECIMENOrdering Facility: [facility] Address: [address] [place] [address] Performed By: #### 5 7021-8 ####[facility] LABCLIA [id number] [place] [address] CNOVSPon 09-19-2023 CNOVSP Normal [facility] metabolic 2000 panelon 09-19-2023 Albumin [Mass/Vol] 3.6 g/dL Low 3.9-4.9 [facility] Comment on above: Order Comment: Speci men Type: BLOOD SPECIMENOrdering Facility: [facility] Address: [address] [place] [address] Performed By: #### 2 4323-8 ####[facility] LABCLIA [id number] [place] [address] ALP [Catalytic activity/Vol] 63 U/L Normal 38-113 [facility] Comment on above: Order Comment: Speci men Type: BLOOD SPECIMENOrdering Facility: [facility] Address: [address] [place] [address] Performed By: #### 2 4323-8 ####[facility] LABCLIA [id number] [place] [address] ALT [Catalytic activity/Vol] 18 U/L Normal 10-54 [facility] Comment on above: Order Comment: Speci men Type: BLOOD SPECIMENOrdering Facility: [facility] Address: [address] [place] [address] Performed By: #### 2 4323-8 ####[facility] LABCLIA [id number] [place] [address] Anion gap [Moles/Vol] 8 mmol/L Low 9-18 [facility] Comment on above: Order Comment: Speci men Type: BLOOD SPECIMENOrdering Facility: [facility] Address: [address] [place] [address] Performed By: #### 2 4323-8 ####[facility] LABCLIA [id number] [place] [address] AST [Catalytic activity/Vol] 19 U/L Normal 14-40 [facility] Comment on above: Order Comment: Speci men Type: BLOOD SPECIMENOrdering Facility: [facility] Address: [address] [place] [address] Performed By: #### 2 4323-8 ####[facility] LABCLIA [id number] [place] [address] Bilirubin [Mass/Vol] 0.7 mg/dL Normal 0.2-1.3 [facility] Comment on above: Order Comment: Speci men Type: BLOOD SPECIMENOrdering Facility: [facility] Address: [address] [place] [address] Performed By: #### 2 4323-8 ####[facility] LABCLIA [id number] [place] [address] Calcium [Mass/Vol] 8.7 mg/dL Normal 8.5-10.2 [facility] Comment on above: Order Comment: Speci men Type: BLOOD SPECIMENOrdering Facility: [facility] Address: [address] [place] [address] Performed By: #### 2 4323-8 ####[facility] LABCLIA [id number] [place] [address] Chloride [Moles/Vol] 105 mmol/L Normal 97-105 [facility] Comment on above: Order Comment: Speci men Type: BLOOD SPECIMENOrdering Facility: [facility] Address: [address] [place] [address] Performed By: #### 2 4323-8 ####[facility] LABCLIA [id number] [place] [address] CO2 [Moles/Vol] 28 mmol/L Normal 22-30 [facility] Comment on above: Order Comment: Speci men Type: BLOOD SPECIMENOrdering Facility: [facility] Address: [address] [place] [address] Performed By: #### 2 4323-8 ####[facility] LABCLIA [id number] [place] [address] Creatinine [Mass/Vol] 1.84 mg/dL High 0.73-1.22 [facility] Comment on above: Order Comment: Speci men Type: BLOOD SPECIMENOrdering Facility: [facility] Address: [address] [place] [address] Performed By: #### 2 4323-8 ####[facility] LABCLIA [id number] [place] [address] Creatinine and Glomerular filtration rate.predicted panel (S/P/Bld) 36 mL/min/1.73m??? Low >=60 [facility] Comment on above: Order Comment: Speci men Type: BLOOD SPECIMENOrdering Facility: [facility] Address: [address] [place] [address] Result Comment: Viviana mated Glomerular Filtration Rate [...] #### 2 4323-8 ####[facility] LABCLIA [id number] [place] [address] Glucose [Mass/Vol] 106 mg/dL High 74-99 [facility] Comment on above: Order Comment: Speci men Type: BLOOD SPECIMENOrdering Facility: [facility] Address: [address] [place] [address] Result Comment: The [place] Diabetes Association (ADA) provides guidance for cutoff [...] Standards of Medical Care in Diabetes 2016, [place] [employer]. Diabetes Care. 2016.39(Suppl 1). Performed By: #### 2 4323-8 ####[facility] LABCLIA [id number] [place] [address] Potassium [Moles/Vol] 3.7 mmol/L Normal 3.7-5.1 [facility] Comment on above: Order Comment: Speci men Type: BLOOD SPECIMENOrdering Facility: [facility] Address: [address] [place] [address] Performed By: #### 2 4323-8 ####[facility] LABCLIA [id number] [place] [address] Protein [Mass/Vol] 5.4 g/dL Low 6.3-8.0 [facility] Comment on above: Order Comment: Speci men Type: BLOOD SPECIMENOrdering Facility: [facility] Address: [address] [place] [address] Performed By: #### 2 4323-8 ####[facility] LABCLIA [id number] [place] [address] Sodium [Moles/Vol] 141 mmol/L Normal 136-144 [facility] Comment on above: Order Comment: Speci men Type: BLOOD SPECIMENOrdering Facility: [facility] Address: [address] [place] [address] Performed By: #### 2 4323-8 ####[facility] LABCLIA [id number] [place] [address] Urea nitrogen [Mass/Vol] 38 mg/dL High 9-24 [facility] Comment on above: Order Comment: Speci men Type: BLOOD SPECIMENOrdering Facility: [facility] Address: [address] [place] [address] Performed By: #### 2 4323-8 ####[facility] LABCLIA [id number] [place] [address] Beverly Koehler 09-19-20 Cortisol [Mass/Vol] 9.8 ug/dL Normal 4.8-19.5 [facility] Comment on above: Order Comment: Speci men Type: BLOOD SPECIMENOrdering Facility: [facility] Address: [address] [place] [address] Result Comment: Prov ided reference range is from 6-10 AM sample collection time.Cortisol Reference Range: 6-10 AM = 4.8-19.5 ug/dL, 4-8 PM = 2.5-11.9 ug/dL Performed By: #### 2 143-6, 3016-3 ####[facility] LABCLIA [id number] [place] [address] [place] HbA1c (Bld)on 09-19-2023 Average glucose Estimated from glycated hemoglobin (Bld) [Mass/Vol] 108 mg/dL Normal [facility] Comment on above: Order Comment: Speci men Type: BLOOD SPECIMENOrdering Facility: [facility] Address: [address] [place] [address] Result Comment: eAG: (Estimated average glucose) is a calculated value from HgbA1c and is provider relations representative of the average blood glucose level in the last 2-3 month period. Performed By: #### 5 5454-3 ####[facility] LABCLIA [id number] [place] [address] [place] HbA1c (Bld) [Mass fraction] 5.4 % Normal 4.3-5.6 [facility] Comment on above: Order Comment: Speci men Type: BLOOD SPECIMENOrdering Facility: [facility] Address: [address] [place] [address] Result Comment: [place] Diabetes Association guidelines indicate that patients with HgbA1c in the range 5.7-6.4% are at increased risk for development of diabetes, and intervention by lifestyle modification may be beneficial. HgbA1c greater or equal to 6.5% is considered diagnostic of diabetes. Performed By: #### 5 5454-3 ####[facility] LABCLIA [id number] [place] [address] [place] TSH SerPl-aCncon 09-19-2023 TSH Qn 2.080 m[IU]/L Normal 0.270-4.200 [facility] Comment on above: Order Comment: Speci men Type: BLOOD SPECIMENOrdering Facility: [facility] Address: [address] [place] [address] Performed By: #### 2 143-6, 3016-3 ####[facility] LABCLIA [id number] [place] [address] [place] CBC W Auto Differential pane l (Bld)on 08-29-2023 Basophils (Bld) [#/Vol] 0.06 10*3/uL Normal <0.11 [facility] Comment on above: Order Comment: Speci men Type: BLOOD SPECIMENOrdering Facility: [facility] Address: [address] [place] [address] Performed By: #### 5 7021-8 ####[facility] LABCLIA [id number] [place] [address] Basophils/100 WBC (Bld) 0.9 % Normal [facility] Comment on above: Order Comment: Speci men Type: BLOOD SPECIMENOrdering Facility: [facility] Address: [address] [place] [address] Performed By: #### 5 7021-8 ####[facility] LABCLIA [id number] [place] [address] Differential cell count method Nom (Bld) Auto Normal [facility] Comment on above: Order Comment: Speci men Type: BLOOD SPECIMENOrdering Facility: [facility] Address: [address] [place] [address] Performed By: #### 5 7021-8 ####[facility] LABCLIA [id number] [place] [address] Eosinophils (Bld) [#/Vol] 0.25 10*3/uL Normal <0.46 [facility] Comment on above: Order Comment: Speci men Type: BLOOD SPECIMENOrdering Facility: [facility] Address: [address] [place] [address] Performed By: #### 5 7021-8 ####[facility] LABCLIA [id number] [place] [address] Eosinophils/100 WBC (Bld) 3.7 % Normal [facility] Comment on above: Order Comment: Speci men Type: BLOOD SPECIMENOrdering Facility: [facility] Address: [address] [place] [address] Performed By: #### 5 7021-8 ####[facility] LABCLIA [id number] [place] [address] Erythrocyte distribution width (RBC) [Ratio] 13.8 % Normal 11.5-15.0 [facility] Comment on above: Order Comment: Speci men Type: BLOOD SPECIMENOrdering Facility: [facility] Address: [address] [place] [address] Performed By: #### 5 7021-8 ####[facility] LABCLIA [id number] [place] [address] Hematocrit (Bld) [Volume fraction] 40.9 % Normal 39.0-51.0 [facility] Comment on above: Order Comment: Speci men Type: BLOOD SPECIMENOrdering Facility: [facility] Address: [address] [place] [address] Performed By: #### 5 7021-8 ####[facility] LABCLIA [id number] [place] [address] Hemoglobin (Bld) [Mass/Vol] 13.6 g/dL Normal 13.0-17.0 [facility] Comment on above: Order Comment: Speci men Type: BLOOD SPECIMENOrdering Facility: [facility] Address: [address] [place] [address] Performed By: #### 5 7021-8 ####[facility] LABCLIA [id number] [place] [address] Immature granulocytes (Bld) [#/Vol] 10*3/uL Normal <0.10 [facility] Comment on above: Order Comment: Speci men Type: BLOOD SPECIMENOrdering Facility: [facility] Address: [address] [place] [address] Performed By: #### 5 7021-8 ####[facility] LABCLIA [id number] [place] [address] Immature granulocytes/100 WBC (Bld) 0.3 % Normal [facility] Comment on above: Order Comment: Speci men Type: BLOOD SPECIMENOrdering Facility: [facility] Address: [address] [place] [address] Performed By: #### 5 7021-8 ####[facility] LABCLIA [id number] [place] [address] Lymphocytes (Bld) [#/Vol] 0.73 10*3/uL Low 1.00-4.00 [facility] Comment on above: Order Comment: Speci men Type: BLOOD SPECIMENOrdering Facility: [facility] Address: [address] [place] [address] Performed By: #### 5 7021-8 ####[facility] LABCLIA [id number] [place] [address] Lymphocytes/100 WBC (Bld) 10.9 % Normal [facility] Comment on above: Order Comment: Speci men Type: BLOOD SPECIMENOrdering Facility: [facility] Address: [address] [place] [address] Performed By: #### 5 7021-8 ####[facility] LABCLIA [id number] [place] [address] MCH (RBC) [Entitic mass] 28.0 pg Normal 26.0-34.0 [facility] Comment on above: Order Comment: Speci men Type: BLOOD SPECIMENOrdering Facility: [facility] Address: [address] [place] [address] Performed By: #### 5 7021-8 ####[facility] LABCLIA [id number] [place] [address] MCHC (RBC) [Mass/Vol] 33.3 g/dL Normal 30.5-36.0 [facility] Comment on above: Order Comment: Speci men Type: BLOOD SPECIMENOrdering Facility: [facility] Address: [address] [place] [address] Performed By: #### 5 7021-8 ####[facility] LABCLIA [id number] [place] [address] MCV (RBC) [Entitic vol] 84.2 fL Normal 80.0-100.0 [facility] Comment on above: Order Comment: Speci men Type: BLOOD SPECIMENOrdering Facility: [facility] Address: [address] [place] [address] Performed By: #### 5 7021-8 ####[facility] LABCLIA [id number] [place] [address] Monocytes (Bld) [#/Vol] 0.36 10*3/uL Normal <0.87 [facility] Comment on above: Order Comment: Speci men Type: BLOOD SPECIMENOrdering Facility: [facility] Address: [address] [place] [address] Performed By: #### 5 7021-8 ####[facility] LABCLIA [id number] [place] [address] Monocytes/100 WBC (Bld) 5.4 % Normal [facility] Comment on above: Order Comment: Speci men Type: BLOOD SPECIMENOrdering Facility: [facility] Address: [address] [place] [address] Performed By: #### 5 7021-8 ####[facility] LABCLIA [id number] [place] [address] Neutrophils (Bld) [#/Vol] 5.28 10*3/uL Normal 1.45-7.50 [facility] Comment on above: Order Comment: Speci men Type: BLOOD SPECIMENOrdering Facility: [facility] Address: [address] [place] [address] Performed By: #### 5 7021-8 ####[facility] LABCLIA [id number] [place] [address] Neutrophils/100 WBC (Bld) 78.8 % Normal [facility] Comment on above: Order Comment: Speci men Type: BLOOD SPECIMENOrdering Facility: [facility] Address: [address] [place] [address] Performed By: #### 5 7021-8 ####[facility] LABIA [id number] [place] [address] Nucleated RBC (Bld) [#/Vol] 10*3/uL Normal <0.01 [facility] Comment on above: Order Comment: Speci men Type: BLOOD SPECIMENOrdering Facility: [facility] Address: [address] [place] [address] Performed By: #### 5 7021-8 ####[facility] LABIA [id number] [place] [address] Nucleated RBC/100 WBC (Bld) [Ratio] 0.0 /100 WBC Normal [facility] Comment on above: Order Comment: Speci men Type: BLOOD SPECIMENOrdering Facility: [facility] Address: [address] [place] [address] Performed By: #### 5 7021-8 ####[facility] LABIA [id number] [place] [address] Platelet mean volume (Bld) [Entitic vol] 9.1 fL Normal 9.0-12.7 [facility] Comment on above: Order Comment: Speci men Type: BLOOD SPECIMENOrdering Facility: [facility] Address: [address] [place] [address] Performed By: #### 5 7021-8 ####[facility] LABCLIA [id number] [place] [address] Platelets (Bld) [#/Vol] 224 10*3/uL Normal 150-400 [facility] Comment on above: Order Comment: Speci men Type: BLOOD SPECIMENOrdering Facility: [facility] Address: [address] [place] [address] Performed By: #### 5 7021-8 ####[facility] LABIA [id number] [place] [address] RBC (Bld) [#/Vol] 4.86 10*6/uL Normal 4.20-6.00 [facility] Comment on above: Order Comment: Speci men Type: BLOOD SPECIMENOrdering Facility: [facility] Address: [address] [place] [address] Performed By: #### 5 7021-8 ####[facility] LABIA [id number] [place] [address] WBC (Bld) [#/Vol] 6.70 10*3/uL Normal 3.70-11.00 [facility] Comment on above: Order Comment: Speci men Type: BLOOD SPECIMENOrdering Facility: [facility] Address: [address] [place] [address] Performed By: #### 5 7021-8 ####[facility] LABIA [id number] [place] [address] CNOVSPon 08-29-2023 CNOVSP Normal [facility] Comprehensive metabolic 2000 panelon 08-29-2023 Albumin [Mass/Vol] 4.2 g/dL Normal 3.9-4.9 [facility] Comment on above: Order Comment: Speci men Type: BLOOD SPECIMENOrdering Facility: [facility] Address: [address] [place], [place] [address] Performed By: #### 2 4323-8 ####[facility] LABCLIA [id number] [place] [address] ALP [Catalytic activity/Vol] 79 U/L Normal 38-113 [facility] Comment on above: Order Comment: Speci men Type: BLOOD SPECIMENOrdering Facility: [facility] Address: [address] [place] [address] Performed By: #### 2 4323-8 ####[facility] LABCLIA [id number] [place] [address] ALT [Catalytic activity/Vol] 17 U/L Normal 10-54 [facility] Comment on above: Order Comment: Speci men Type: BLOOD SPECIMENOrdering Facility: [facility] Address: [address] [place] [address] Performed By: #### 2 4323-8 ####[facility] LABCLIA [id number] [place] [address] Anion gap [Moles/Vol] 7 mmol/L Low 9-18 [facility] Comment on above: Order Comment: Speci men Type: BLOOD SPECIMENOrdering Facility: [facility] Address: [address] [place] [address] Performed By: #### 2 4323-8 ####[facility] LABCLIA [id number] [place] [address] AST [Catalytic activity/Vol] 28 U/L Normal 14-40 [facility] Comment on above: Order Comment: Speci men Type: BLOOD SPECIMENOrdering Facility: [facility] Address: [address] [place] [address] Performed By: #### 2 4323-8 ####[facility] LABCLIA [id number] [place] [address] Bilirubin [Mass/Vol] 0.8 mg/dL Normal 0.2-1.3 [facility] Comment on above: Order Comment: Speci men Type: BLOOD SPECIMENOrdering Facility: [facility] Address: [address] [place] [address] Performed By: #### 2 4323-8 ####[facility] LABCLIA [id number] [place] [address] Calcium [Mass/Vol] 9.6 mg/dL Normal 8.5-10.2 [facility] Comment on above: Order Comment: Speci men Type: BLOOD SPECIMENOrdering Facility: [facility] Address: [address] [place] [address] Performed By: #### 2 4323-8 ####[facility] LABCLIA [id number] [place] [address] Chloride [Moles/Vol] 102 mmol/L Normal 97-105 [facility] Comment on above: Order Comment: Speci men Type: BLOOD SPECIMENOrdering Facility: [facility] Address: [address] [place] [address] Performed By: #### 2 4323-8 ####[facility] LABCLIA [id number] [place] [address] CO2 [Moles/Vol] 28 mmol/L Normal 22-30 [facility] Comment on above: Order Comment: Speci men Type: BLOOD SPECIMENOrdering Facility: [facility] Address: [address] [place] [address] Performed By: #### 2 4323-8 ####[facility] LABCLIA [id number] [place] [address] Creatinine [Mass/Vol] 2.02 mg/dL High 0.73-1.22 [facility] Comment on above: Order Comment: Speci men Type: BLOOD SPECIMENOrdering Facility: [facility] Address: [address] [place] [address] Performed By: #### 2 4323-8 ####[facility] LABCLIA [id number] [place] [address] Creatinine and Glomerular filtration rate.predicted panel (S/P/Bld) 32 mL/min/1.73m??? Low >=60 [facility] Comment on above: Order Comment: Vero barton Type: BLOOD SPECIMENOrdering Facility: [facility] Address: [address] [place] [address] Result Comment: Viviana mated Glomerular Filtration Rate [...] #### 2 4323-8 ####[facility] LABCLIA [id number] [place] [address] Glucose [Mass/Vol] 116 mg/dL High 74-99 [facility] Comment on above: Order Comment: Vero barton Type: BLOOD SPECIMENOrdering Facility: [facility] Address: [address] [place] [address] Result Comment: The [place] Diabetes Association (ADA) provides guidance for cutoff [...] Standards of Medical Care in Diabetes 2016, [place] [employer]. Diabetes Care. 2016.39(Suppl 1). Performed By: #### 2 4323-8 ####[facility] LABCLIA [id number] [place] [address] Potassium [Moles/Vol] 4.1 mmol/L Normal 3.7-5.1 [facility] Comment on above: Order Comment: Vero barton Type: BLOOD SPECIMENOrdering Facility: [facility] Address: [address] [place] [address] Performed By: #### 2 4323-8 ####[facility] LABCLIA [id number] [place] [address] Protein [Mass/Vol] 6.1 g/dL Low 6.3-8.0 [facility] Comment on above: Order Comment: Speci men Type: BLOOD SPECIMENOrdering Facility: [facility] Address: [address] [place] [address] Performed By: #### 2 4323-8 ####[facility] LABCLIA [id number] [place] [address] Sodium [Moles/Vol] 137 mmol/L Normal 136-144 [facility] Comment on above: Order Comment: Speci men Type: BLOOD SPECIMENOrdering Facility: [facility] Address: [address] [place] [address] Performed By: #### 2 4323-8 ####[facility] LABCLIA [id number] [place] [address] Urea nitrogen [Mass/Vol] 23 mg/dL Normal 9-24 [facility] Comment on above: Order Comment: Speci men Type: BLOOD SPECIMENOrdering Facility: [facility] Address: [address] [place] [address] Performed By: #### 2 4323-8 ####[facility] LABCLIA [id number] [place] [address] Cortis Nainal-Ricaon 08-29-20 23 Cortisol [Mass/Vol] 7.9 ug/dL Normal 4.8-19.5 [facility] Comment on above: Order Comment: Speci men Type: BLOOD SPECIMENOrdering Facility: [facility] Address: [address] [place] [address] Result Comment: Prov ided reference range is from 6-10 AM sample collection time.Cortisol Reference Range: 6-10 AM = 4.8-19.5 ug/dL, 4-8 PM = 2.5-11.9 ug/dL Performed By: #### 2 143-6, 3016-3 ####[facility] LABIA [id number] [place] [address] [place] HbA1c (Bld)on 08-29-2023 Average glucose Estimated from glycated hemoglobin (Bld) [Mass/Vol] 100 mg/dL Normal [facility] Comment on above: Order Comment: Speci men Type: BLOOD SPECIMENOrdering Facility: [facility] Address: [address] [place] [address] Result Comment: eAG: (Estimated average glucose) is a calculated value from HgbA1c and is provider relations representative of the average blood glucose level in the last 2-3 month period. Performed By: #### 5 5454-3 ####[facility] [id number] [address] HbA1c (Bld) [Mass fraction] 5.1 % Normal 4.3-5.6 [facility] Comment on above: Order Comment: Vero barton Type: BLOOD SPECIMENOrdering Facility: [facility] Address: [address] [place] [address] Result Comment: Amer [place] Diabetes Association guidelines indicate that patients with HgbA1c in the range 5.7-6.4% are at increased risk for development of diabetes, and intervention by lifestyle modification may be beneficial. HgbA1c greater or equal to 6.5% is considered diagnostic of diabetes. Performed By: #### 5 5454-3 ####[facility] LABIA [id number] [address] [place] TSH SerPl-aCncon 08-29-2023 TSH Qn 3.500 m[IU]/L Normal 0.270-4.200 [facility] Comment on above: Order Comment: Vero [facility] Type: BLOOD SPECIMENOrdering Facility: [facility] Address: [address] [place] [address] Performed By: #### 2 143-6, 3016-3 ####[facility] LABIA [id number] [address] [address] [place] CT ABD/PEL W IVCONon 023 CT ABD/PEL W IVCON Normal [facility] CT CHEST W IVCONon 3 CT CHEST W IVCON Normal [facility] Office Visiton 08-20-2023 Follow-up visit [id number] DanielJuan Jose Watson 1940 M Date Provider Department Center 08/20/2023 JIMBO ROBERTSON [facility] Family History Problem Relation Age of Onset Heart failure Mother Family Status - Relation Status Age at Mother Level of Service:07556 [place] PHYS/QHP TELEPHONE EVALUATION 11-20 MIN Normal [facility] CBC W Auto Differential pane l (Bld)on 08-08-2023 Basophils (Bld) [#/Vol] 0.05 10*3/uL Normal <0.11 [facility] Comment on above: Order Comment: Speci men Type: BLOOD SPECIMENOrdering Facility: [facility] Address: [address] [place] [address] Performed By: #### 5 7021-8 ####[facility] LABCLIA [id number] [place] [address] Basophils/100 WBC (Bld) 0.8 % Normal [facility] Comment on above: Order Comment: Speci men Type: BLOOD SPECIMENOrdering Facility: [facility] Address: [address] [place] [address] Performed By: #### 5 7021-8 ####[facility] LABCLIA [id number] [place] [address] Differential cell count method Nom (Bld) Auto Normal [facility] Comment on above: Order Comment: Speci men Type: BLOOD SPECIMENOrdering Facility: [facility] Address: [address] [place] [address] Performed By: #### 5 7021-8 ####[facility] LABCLIA [id number] [place] [address] Eosinophils (Bld) [#/Vol] 0.23 10*3/uL Normal <0.46 [facility] Comment on above: Order Comment: Speci men Type: BLOOD SPECIMENOrdering Facility: [facility] Address: [address] [place] [address] Performed By: #### 5 7021-8 ####[facility] LABCLIA [id number] [place] [address] Eosinophils/100 WBC (Bld) 3.6 % Normal [facility] Comment on above: Order Comment: Speci men Type: BLOOD SPECIMENOrdering Facility: [facility] Address: [address] [place] [address] Performed By: #### 5 7021-8 ####[facility] LABCLIA [id number] [place] [address] Erythrocyte distribution width (RBC) [Ratio] 14.0 % Normal 11.5-15.0 [facility] Comment on above: Order Comment: Speci men Type: BLOOD SPECIMENOrdering Facility: [facility] Address: [address] [place] [address] Performed By: #### 5 7021-8 ####[facility] LABCLIA [id number] [place] [address] Hematocrit (Bld) [Volume fraction] 39.4 % Normal 39.0-51.0 [facility] Comment on above: Order Comment: Speci men Type: BLOOD SPECIMENOrdering Facility: [facility] Address: [address] [place] [address] Performed By: #### 5 7021-8 ####[facility] LABCLIA [id number] [place] [address] Hemoglobin (Bld) [Mass/Vol] 13.4 g/dL Normal 13.0-17.0 [facility] Comment on above: Order Comment: Speci men Type: BLOOD SPECIMENOrdering Facility: [facility] Address: [address] [place] [address] Performed By: #### 5 7021-8 ####[facility] LABCLIA [id number] [place] [address] Immature granulocytes (Bld) [#/Vol] 10*3/uL Normal <0.10 [facility] Comment on above: Order Comment: Speci men Type: BLOOD SPECIMENOrdering Facility: [facility] Address: [address] [place] [address] Performed By: #### 5 7021-8 ####[facility] LABCLIA [id number] [place] [address] Immature granulocytes/100 WBC (Bld) 0.3 % Normal [facility] Comment on above: Order Comment: Speci men Type: BLOOD SPECIMENOrdering Facility: [facility] Address: [address] [place] [address] Performed By: #### 5 7021-8 ####[facility] LABCLIA [id number] [place] [address] Lymphocytes (Bld) [#/Vol] 0.73 10*3/uL Low 1.00-4.00 [facility] Comment on above: Order Comment: Speci men Type: BLOOD SPECIMENOrdering Facility: [facility] Address: [address] [place] [address] Performed By: #### 5 7021-8 ####[facility] LABCLIA [id number] [place] [address] Lymphocytes/100 WBC (Bld) 11.5 % Normal [facility] Comment on above: Order Comment: Speci men Type: BLOOD SPECIMENOrdering Facility: [facility] Address: [address] [place] [address] Performed By: #### 5 7021-8 ####[facility] LABIA [id number] [place] [address] MCH (RBC) [Entitic mass] 28.5 pg Normal 26.0-34.0 [facility] Comment on above: Order Comment: Speci men Type: BLOOD SPECIMENOrdering Facility: [facility] Address: [address] [place] [address] Performed By: #### 5 7021-8 ####[facility] LABCLIA [id number] [place] [address] MCHC (RBC) [Mass/Vol] 34.0 g/dL Normal 30.5-36.0 [facility] Comment on above: Order Comment: Speci men Type: BLOOD SPECIMENOrdering Facility: [facility] Address: [address] [place] [address] Performed By: #### 5 7021-8 ####[facility] LABCLIA [id number] [place] [address] MCV (RBC) [Entitic vol] 83.7 fL Normal 80.0-100.0 [facility] Comment on above: Order Comment: Speci men Type: BLOOD SPECIMENOrdering Facility: [facility] Address: [address] [place] [address] Performed By: #### 5 7021-8 ####[facility] LABCLIA [id number] [place] [address] Monocytes (Bld) [#/Vol] 0.63 10*3/uL Normal <0.87 [facility] Comment on above: Order Comment: Speci men Type: BLOOD SPECIMENOrdering Facility: [facility] Address: [address] [place] [address] Performed By: #### 5 7021-8 ####[facility] LABCLIA [id number] [place] [address] Monocytes/100 WBC (Bld) 9.9 % Normal [facility] Comment on above: Order Comment: Speci men Type: BLOOD SPECIMENOrdering Facility: [facility] Address: [address] [place] [address] Performed By: #### 5 7021-8 ####[facility] LABCLIA [id number] [place] [address] Neutrophils (Bld) [#/Vol] 4.68 10*3/uL Normal 1.45-7.50 [facility] Comment on above: Order Comment: Speci men Type: BLOOD SPECIMENOrdering Facility: [facility] Address: [address] [place] [address] Performed By: #### 5 7021-8 ####[facility] LABCLIA [id number] [place] [address] Neutrophils/100 WBC (Bld) 73.9 % Normal [facility] Comment on above: Order Comment: Speci men Type: BLOOD SPECIMENOrdering Facility: [facility] Address: [address] [place] [address] Performed By: #### 5 7021-8 ####[facility] LABCLIA [id number] [place] [address] Nucleated RBC (Bld) [#/Vol] 10*3/uL Normal <0.01 [facility] Comment on above: Order Comment: Speci men Type: BLOOD SPECIMENOrdering Facility: [facility] Address: [address] [place] [address] Performed By: #### 5 7021-8 ####[facility] LABCLIA [id number] [place] [address] Nucleated RBC/100 WBC (Bld) [Ratio] 0.0 /100 WBC Normal [facility] Comment on above: Order Comment: Speci men Type: BLOOD SPECIMENOrdering Facility: [facility] Address: [address] [place] [address] Performed By: #### 5 7021-8 ####[facility] LABCLIA [id number] [place] [address] Platelet mean volume (Bld) [Entitic vol] 9.3 fL Normal 9.0-12.7 [facility] Comment on above: Order Comment: Speci men Type: BLOOD SPECIMENOrdering Facility: [facility] Address: [address] [place] [address] Performed By: #### 5 7021-8 ####[facility] LABCLIA [id number] [place] [address] Platelets (Bld) [#/Vol] 200 10*3/uL Normal 150-400 [facility] Comment on above: Order Comment: Speci men Type: BLOOD SPECIMENOrdering Facility: [facility] Address: [address] [place] [address] Performed By: #### 5 7021-8 ####[facility] LABIA [id number] [place] [address] RBC (Bld) [#/Vol] 4.71 10*6/uL Normal 4.20-6.00 [facility] Comment on above: Order Comment: Speci men Type: BLOOD SPECIMENOrdering Facility: [facility] Address: [address] [place] [address] Performed By: #### 5 7021-8 ####[facility] [id number] [place] [address] WBC (Bld) [#/Vol] 6.34 10*3/uL Normal 3.70-11.00 [facility] Comment on above: Order Comment: Speci men Type: BLOOD SPECIMENOrdering Facility: [facility] Address: [address] [place] [address] Performed By: #### 5 7021-8 ####[facility] LABIA [id number] [place] [address] CNPNon 08-08-2023 CNPN Normal [facility] Comprehensive metabolic 2000 panelon 08-08-2023 Albumin [Mass/Vol] 4.0 g/dL Normal 3.9-4.9 [facility] Comment on above: Order Comment: Speci men Type: BLOOD SPECIMENOrdering Facility: [facility] Address: [address] [place] [address] Performed By: #### 2 4323-8 ####[facility] LABIA [id number] [place] [address] ALP [Catalytic activity/Vol] 83 U/L Normal 38-113 [facility] Comment on above: Order Comment: Speci men Type: BLOOD SPECIMENOrdering Facility: [facility] Address: [address] [place] [address] Performed By: #### 2 4323-8 ####[facility] LABCLIA [id number] [place] [address] ALT [Catalytic activity/Vol] 14 U/L Normal 10-54 [facility] Comment on above: Order Comment: Speci men Type: BLOOD SPECIMENOrdering Facility: [facility] Address: [address] [place] [address] Performed By: #### 2 4323-8 ####[facility] LABCLIA [id number] [place] [address] Anion gap [Moles/Vol] 6 mmol/L Low 9-18 [facility] Comment on above: Order Comment: Speci men Type: BLOOD SPECIMENOrdering Facility: [facility] Address: [address] [place] [address] Performed By: #### 2 4323-8 ####[facility] LABCLIA [id number] [place] [address] AST [Catalytic activity/Vol] 21 U/L Normal 14-40 [facility] Comment on above: Order Comment: Speci men Type: BLOOD SPECIMENOrdering Facility: [facility] Address: [address] [place] [address] Performed By: #### 2 4323-8 ####[facility] LABCLIA [id number] [place] [address] Bilirubin [Mass/Vol] 0.7 mg/dL Normal 0.2-1.3 [facility] Comment on above: Order Comment: Speci men Type: BLOOD SPECIMENOrdering Facility: [facility] Address: [address] [place] [address] Performed By: #### 2 4323-8 ####[facility] LABCLIA [id number] [place] [address] Calcium [Mass/Vol] 8.7 mg/dL Normal 8.5-10.2 [facility] Comment on above: Order Comment: Speci men Type: BLOOD SPECIMENOrdering Facility: [facility] Address: [address] [place] [address] Performed By: #### 2 4323-8 ####[facility] LABCLIA [id number] [place] [address] Chloride [Moles/Vol] 106 mmol/L High 97-105 [facility] Comment on above: Order Comment: Speci men Type: BLOOD SPECIMENOrdering Facility: [facility] Address: [address] [place] [address] Performed By: #### 2 4323-8 ####[facility] LABCLIA [id number] [place] [address] CO2 [Moles/Vol] 25 mmol/L Normal 22-30 [facility] Comment on above: Order Comment: Speci men Type: BLOOD SPECIMENOrdering Facility: [facility] Address: [address] [place] [address] Performed By: #### 2 4323-8 ####[facility] LABCLIA [id number] [place] [address] Creatinine [Mass/Vol] 1.97 mg/dL High 0.73-1.22 [facility] Comment on above: Order Comment: Speci men Type: BLOOD SPECIMENOrdering Facility: [facility] Address: [address] [place] [address] Performed By: #### 2 4323-8 ####[facility] LABCLIA [id number] [place] [address] Creatinine and Glomerular filtration rate.predicted panel (S/P/Bld) 33 mL/min/1.73m??? Low >=60 [facility] Comment on above: Order Comment: Speci men Type: BLOOD SPECIMENOrdering Facility: [facility] Address: [address] [place] [address] Result Comment: Viviana mated Glomerular Filtration Rate [...] #### 2 4323-8 ####[facility] LABCLIA [id number] [place] [address] Glucose [Mass/Vol] 105 mg/dL High 74-99 [facility] Comment on above: Order Comment: Specronnie barton Type: BLOOD SPECIMENOrdering Facility: [facility] Address: [address] [place] [address] Result Comment: The [place] Diabetes Association (ADA) provides guidance for cutoff [...] Standards of Medical Care in Diabetes 2016, [place] [employer] Association. Diabetes Care. 2016.39(Suppl 1). Performed By: #### 2 4323-8 ####[facility] LABCLIA [id number] [place] [address] Potassium [Moles/Vol] 4.1 mmol/L Normal 3.7-5.1 [facility] Comment on above: Order Comment: Vero barton Type: BLOOD SPECIMENOrdering Facility: [facility] Address: [address] [place], [place] [address] Performed By: #### 2 4323-8 ####[facility] LABCLIA [id number] [place] [address] Protein [Mass/Vol] 6.0 g/dL Low 6.3-8.0 [facility] Comment on above: Order Comment: Speci men Type: BLOOD SPECIMENOrdering Facility: [facility] Address: [address] [place] [address] Performed By: #### 2 4323-8 ####[facility] LABCLIA [id number] [place] [address] Sodium [Moles/Vol] 137 mmol/L Normal 136-144 [facility] Comment on above: Order Comment: Speci men Type: BLOOD SPECIMENOrdering Facility: [facility] Address: [address] [place] [address] Performed By: #### 2 4323-8 ####[facility] LABCLIA [id number] [place] [address] Urea nitrogen [Mass/Vol] 23 mg/dL Normal 9-24 [facility] Comment on above: Order Comment: Speci men Type: BLOOD SPECIMENOrdering Facility: [facility] Address: [address] [place] [address] Performed By: #### 2 4323-8 ####[facility] LABCLIA [id number] [place] [address] Cortshaye Chewl-mCncon 08-08-20 23 Cortisol [Mass/Vol] 11.0 ug/dL Normal 4.8-19.5 [facility] Comment on above: Order Comment: Speci men Type: BLOOD SPECIMENOrdering Facility: [facility] Address: [address] [place] [address] Result Comment: Prov ided reference range is from 6-10 AM sample collection time.Cortisol Reference Range: 6-10 AM = 4.8-19.5 ug/dL, 4-8 PM = 2.5-11.9 ug/dL Performed By: #### 2 143-6, 3016-3 ####[facility] LABCLIA [id number] [facility] [id number] [place] HbA1c (Bld)on 08-08-2023 Average glucose Estimated from glycated hemoglobin (Bld) [Mass/Vol] 97 mg/dL Normal [facility] Comment on above: Order Comment: Vero barton Type: BLOOD SPECIMENOrdering Facility: [facility] Address: [address] [place] [address] Result Comment: eAG: (Estimated average glucose) is a calculated value from HgbA1c and is provider relations representative of the average blood glucose level in the last 2-3 month period. Performed By: #### 5 5454-3 ####[facility] LABCLIA [id number] [address] [place] [facility] HbA1c (Bld) [Mass fraction] 5.0 % Normal 4.3-5.6 [facility] Comment on above: Order Comment: Vero barton Type: BLOOD SPECIMENOrdering Facility: [facility] Address: [address] [place] [address] Result Comment: [place] Diabetes Association guidelines indicate that patients with HgbA1c in the range 5.7-6.4% are at increased risk for development of diabetes, and intervention by lifestyle modification may be beneficial. HgbA1c greater or equal to 6.5% is considered diagnostic of diabetes. Performed By: #### 5 5454-3 ####[facility] LABIA [id number] [address] [place] TSH SerPl-aCncon 08-08-2023 TSH Qn 1.510 m[IU]/L Normal 0.270-4.200 [facility] Comment on above: Order Comment: Vero oralia Type: BLOOD SPECIMENOrdering Facility: [facility] Address: [address] [place] [address] Performed By: #### 2 143-6, 3016-3 ####[facility] LABIA [id number] [address] [place] CBC W Auto Differential pane l (Bld)on 07-18-2023 Basophils (Bld) [#/Vol] 0.07 10*3/uL Normal <0.11 [facility] Comment on above: Order Comment: Speci men Type: BLOOD SPECIMENOrdering Facility: [facility] Address: [address] [place] [address] Performed By: #### 5 7021-8 ####[facility] LABCLIA [id number] [place] [address] Basophils/100 WBC (Bld) 1.0 % Normal [facility] Comment on above: Order Comment: Speci men Type: BLOOD SPECIMENOrdering Facility: [facility] Address: [address] [place] [address] Performed By: #### 5 7021-8 ####[facility] LABCLIA [id number] [place] [address] Differential cell count method Nom (Bld) Auto Normal [facility] Comment on above: Order Comment: Speci men Type: BLOOD SPECIMENOrdering Facility: [facility] Address: [address] [place] [address] Performed By: #### 5 7021-8 ####[facility] LABCLIA [id number] [place] [address] Eosinophils (Bld) [#/Vol] 0.23 10*3/uL Normal <0.46 [facility] Comment on above: Order Comment: Speci men Type: BLOOD SPECIMENOrdering Facility: [facility] Address: [address] [place] [address] Performed By: #### 5 7021-8 ####[facility] LABCLIA [id number] [place] [address] Eosinophils/100 WBC (Bld) 3.1 % Normal [facility] Comment on above: Order Comment: Speci men Type: BLOOD SPECIMENOrdering Facility: [facility] Address: [address] [place] [address] Performed By: #### 5 7021-8 ####[facility] LABCLIA [id number] [place] [address] Erythrocyte distribution width (RBC) [Ratio] 13.9 % Normal 11.5-15.0 [facility] Comment on above: Order Comment: Speci men Type: BLOOD SPECIMENOrdering Facility: [facility] Address: [address] [place] [address] Performed By: #### 5 7021-8 ####[facility] LABCLIA [id number] [place] [address] Hematocrit (Bld) [Volume fraction] 40.2 % Normal 39.0-51.0 [facility] Comment on above: Order Comment: Speci men Type: BLOOD SPECIMENOrdering Facility: [facility] Address: [address] [place] [address] Performed By: #### 5 7021-8 ####[facility] LABCLIA [id number] [place] [address] Hemoglobin (Bld) [Mass/Vol] 13.4 g/dL Normal 13.0-17.0 [facility] Comment on above: Order Comment: Speci men Type: BLOOD SPECIMENOrdering Facility: [facility] Address: [address] [place] [address] Performed By: #### 5 7021-8 ####[facility] LABCLIA [id number] [place] [address] Immature granulocytes (Bld) [#/Vol] 10*3/uL Normal <0.10 [facility] Comment on above: Order Comment: Speci men Type: BLOOD SPECIMENOrdering Facility: [facility] Address: [address] [place] [address] Performed By: #### 5 7021-8 ####[facility] LABCLIA [id number] [place] [address] Immature granulocytes/100 WBC (Bld) 0.3 % Normal [facility] Comment on above: Order Comment: Speci men Type: BLOOD SPECIMENOrdering Facility: [facility] Address: [address] [place] [address] Performed By: #### 5 7021-8 ####[facility] LABCLIA [id number] [place] [address] Lymphocytes (Bld) [#/Vol] 0.77 10*3/uL Low 1.00-4.00 [facility] Comment on above: Order Comment: Speci men Type: BLOOD SPECIMENOrdering Facility: [facility] Address: [address] [place] [address] Performed By: #### 5 7021-8 ####[facility] LABCLIA [id number] [place] [address] Lymphocytes/100 WBC (Bld) 10.5 % Normal [facility] Comment on above: Order Comment: Speci men Type: BLOOD SPECIMENOrdering Facility: [facility] Address: [address] [place] [address] Performed By: #### 5 7021-8 ####[facility] LABCLIA [id number] [place] [address] MCH (RBC) [Entitic mass] 28.2 pg Normal 26.0-34.0 [facility] Comment on above: Order Comment: Speci men Type: BLOOD SPECIMENOrdering Facility: [facility] Address: [address] [place] [address] Performed By: #### 5 7021-8 ####[facility] LABCLIA [id number] [place] [address] MCHC (RBC) [Mass/Vol] 33.3 g/dL Normal 30.5-36.0 [facility] Comment on above: Order Comment: Speci men Type: BLOOD SPECIMENOrdering Facility: [facility] Address: [address] [place] [address] Performed By: #### 5 7021-8 ####[facility] LABCLIA [id number] [place] [address] MCV (RBC) [Entitic vol] 84.5 fL Normal 80.0-100.0 [facility] Comment on above: Order Comment: Speci men Type: BLOOD SPECIMENOrdering Facility: [facility] Address: [address] [place] [address] Performed By: #### 5 7021-8 ####[facility] LABCLIA [id number] [place] [address] Monocytes (Bld) [#/Vol] 0.47 10*3/uL Normal <0.87 [facility] Comment on above: Order Comment: Speci men Type: BLOOD SPECIMENOrdering Facility: [facility] Address: [address] [place] [address] Performed By: #### 5 7021-8 ####[facility] LABCLIA [id number] [place] [address] Monocytes/100 WBC (Bld) 6.4 % Normal [facility] Comment on above: Order Comment: Speci men Type: BLOOD SPECIMENOrdering Facility: [facility] Address: [address] [place] [address] Performed By: #### 5 7021-8 ####[facility] LABCLIA [id number] [place] [address] Neutrophils (Bld) [#/Vol] 5.80 10*3/uL Normal 1.45-7.50 [facility] Comment on above: Order Comment: Speci men Type: BLOOD SPECIMENOrdering Facility: [facility] Address: [address] [place] [address] Performed By: #### 5 7021-8 ####[facility] LABCLIA [id number] [place] [address] Neutrophils/100 WBC (Bld) 78.7 % Normal [facility] Comment on above: Order Comment: Speci men Type: BLOOD SPECIMENOrdering Facility: [facility] Address: [address] [place] [address] Performed By: #### 5 7021-8 ####[facility] LABCLIA [id number] [place] [address] Nucleated RBC (Bld) [#/Vol] 10*3/uL Normal <0.01 [facility] Comment on above: Order Comment: Speci men Type: BLOOD SPECIMENOrdering Facility: [facility] Address: [address] [place] [address] Performed By: #### 5 7021-8 ####[facility] LABCLIA [id number] [place] [address] Nucleated RBC/100 WBC (Bld) [Ratio] 0.0 /100 WBC Normal [facility] Comment on above: Order Comment: Speci men Type: BLOOD SPECIMENOrdering Facility: [facility] Address: [address] [place] [address] Performed By: #### 5 7021-8 ####[facility] LABCLIA [id number] [place] [address] Platelet mean volume (Bld) [Entitic vol] 9.1 fL Normal 9.0-12.7 [facility] Comment on above: Order Comment: Speci men Type: BLOOD SPECIMENOrdering Facility: [facility] Address: [address] [place] [address] Performed By: #### 5 7021-8 ####[facility] LABCLIA [id number] [place] [address] Platelets (Bld) [#/Vol] 179 10*3/uL Normal 150-400 [facility] Comment on above: Order Comment: Speci men Type: BLOOD SPECIMENOrdering Facility: [facility] Address: [address] [place] [address] Performed By: #### 5 7021-8 ####[facility] LABCLIA [id number] [place] [address] RBC (Bld) [#/Vol] 4.76 10*6/uL Normal 4.20-6.00 [facility] Comment on above: Order Comment: Speci men Type: BLOOD SPECIMENOrdering Facility: [facility] Address: [address] [place] [address] Performed By: #### 5 7021-8 ####[facility] LABCLIA [id number] [place] [address] WBC (Bld) [#/Vol] 7.36 10*3/uL Normal 3.70-11.00 [facility] Comment on above: Order Comment: Speci men Type: BLOOD SPECIMENOrdering Facility: [facility] Address: [address] [place] [address] Performed By: #### 5 7021-8 ####[facility] LABCLIA [id number] [place] [address] CNOVSPon 07-18-2023 CNOVSP Normal [facility] metabolic 2000 panelon 07-18-2023 Albumin [Mass/Vol] 4.3 g/dL Normal 3.9-4.9 [facility] Comment on above: Order Comment: Speci men Type: BLOOD SPECIMENOrdering Facility: [facility] Address: [address] [place] [address] Performed By: #### 2 4323-8 ####[facility] LABCLIA [id number] [place] [address] ALP [Catalytic activity/Vol] 79 U/L Normal 38-113 [facility] Comment on above: Order Comment: Speci men Type: BLOOD SPECIMENOrdering Facility: [facility] Address: [address] [place] [address] Performed By: #### 2 4323-8 ####[facility] LABCLIA [id number] [place] [address] ALT [Catalytic activity/Vol] 17 U/L Normal 10-54 [facility] Comment on above: Order Comment: Speci men Type: BLOOD SPECIMENOrdering Facility: [facility] Address: [address] [place] [address] Performed By: #### 2 4323-8 ####[facility] LABCLIA [id number] [place] [address] Anion gap [Moles/Vol] 6 mmol/L Low 9-18 [facility] Comment on above: Order Comment: Speci men Type: BLOOD SPECIMENOrdering Facility: [facility] Address: [address] [place] [address] Performed By: #### 2 4323-8 ####[facility] LABCLIA [id number] [place] [address] AST [Catalytic activity/Vol] 24 U/L Normal 14-40 [facility] Comment on above: Order Comment: Speci men Type: BLOOD SPECIMENOrdering Facility: [facility] Address: [address] [place] [address] Performed By: #### 2 4323-8 ####[facility] LABCLIA [id number] [place] [address] Bilirubin [Mass/Vol] 0.5 mg/dL Normal 0.2-1.3 [facility] Comment on above: Order Comment: Speci men Type: BLOOD SPECIMENOrdering Facility: [facility] Address: [address] [place] [address] Performed By: #### 2 4323-8 ####[facility] LABCLIA [id number] [place] [address] Calcium [Mass/Vol] 9.1 mg/dL Normal 8.5-10.2 [facility] Comment on above: Order Comment: Speci men Type: BLOOD SPECIMENOrdering Facility: [facility] Address: [address] [place] [address] Performed By: #### 2 4323-8 ####[facility] LABCLIA [id number] [place] [address] Chloride [Moles/Vol] 107 mmol/L High 97-105 [facility] Comment on above: Order Comment: Speci men Type: BLOOD SPECIMENOrdering Facility: [facility] Address: [address] [place] [address] Performed By: #### 2 4323-8 ####[facility] LABCLIA [id number] [place] [address] CO2 [Moles/Vol] 27 mmol/L Normal 22-30 [facility] Comment on above: Order Comment: Speci men Type: BLOOD SPECIMENOrdering Facility: [facility] Address: [address] [place] [address] Performed By: #### 2 4323-8 ####[facility] LABCLIA [id number] [place] [address] Creatinine [Mass/Vol] 2.03 mg/dL High 0.73-1.22 [facility] Comment on above: Order Comment: Speci men Type: BLOOD SPECIMENOrdering Facility: [facility] Address: [address] [place] [address] Performed By: #### 2 4323-8 ####[facility] LABCLIA [id number] [place] [address] Creatinine and Glomerular filtration rate.predicted panel (S/P/Bld) 32 mL/min/1.73m??? Low >=60 [facility] Comment on above: Order Comment: Speci men Type: BLOOD SPECIMENOrdering Facility: [facility] Address: [address] [place] [address] Result Comment: Viviana mated Glomerular Filtration Rate [...] #### 2 4323-8 ####[facility] LABCLIA [id number] [place] [address] Glucose [Mass/Vol] 104 mg/dL High 74-99 [facility] Comment on above: Order Comment: Speci men Type: BLOOD SPECIMENOrdering Facility: [facility] Address: [address] [place] [address] Result Comment: The [place] Diabetes Association (ADA) provides guidance for cutoff [...] Standards of Medical Care in Diabetes 2016, [place] [employer]. Diabetes Care. 2016.39(Suppl 1). Performed By: #### 2 4323-8 ####[facility] LABCLIA [id number] [place] [address] Potassium [Moles/Vol] 4.1 mmol/L Normal 3.7-5.1 [facility] Comment on above: Order Comment: Speci men Type: BLOOD SPECIMENOrdering Facility: [facility] Address: [address] [place] [address] Performed By: #### 2 4323-8 ####[facility] LABCLIA [id number] [place] [address] Protein [Mass/Vol] 6.1 g/dL Low 6.3-8.0 [facility] Comment on above: Order Comment: Speci men Type: BLOOD SPECIMENOrdering Facility: [facility] Address: [address] [place] [address] Performed By: #### 2 4323-8 ####[facility] LABCLIA [id number] [place] [address] Sodium [Moles/Vol] 140 mmol/L Normal 136-144 [facility] Comment on above: Order Comment: Speci men Type: BLOOD SPECIMENOrdering Facility: [facility] Address: [address] [place] [address] Performed By: #### 2 4323-8 ####[facility] LABCLIA [id number] [place] [address] Urea nitrogen [Mass/Vol] 34 mg/dL High 9-24 [facility] Comment on above: Order Comment: Speci men Type: BLOOD SPECIMENOrdering Facility: [facility] Address: [address] [place] [address] Performed By: #### 2 4323-8 ####[facility] LABCLIA [id number] [place] [id number] Beverly Keisha-Celena 07-18-20 Cortisol [Mass/Vol] 10.2 ug/dL Normal 4.8-19.5 [facility] Comment on above: Order Comment: Speci men Type: BLOOD SPECIMENOrdering Facility: [facility] Address: [address] [place] [address] Result Comment: Prov ided reference range is from 6-10 AM sample collection time.Cortisol Reference Range: 6-10 AM = 4.8-19.5 ug/dL, 4-8 PM = 2.5-11.9 ug/dL Performed By: #### 2 143-6, 3016-3 ####[facility] LABCLIA [id number] [place] [address] [place] HbA1c (Bld)on 07-18-2023 Average glucose Estimated from glycated hemoglobin (Bld) [Mass/Vol] 103 mg/dL Normal [facility] Comment on above: Order Comment: Speci men Type: BLOOD SPECIMENOrdering Facility: [facility] Address: [address] [place] [address] Result Comment: eAG: (Estimated average glucose) is a calculated value from HgbA1c and is provider relations representative of the average blood glucose level in the last 2-3 month period. Performed By: #### 5 5454-3 ####[facility] LABIA [id number] [place] [address] [place] HbA1c (Bld) [Mass fraction] 5.2 % Normal 4.3-5.6 [facility] Comment on above: Order Comment: Speci men Type: BLOOD SPECIMENOrdering Facility: [facility] Address: [address] [place] [address] Result Comment: [place] Diabetes Association guidelines indicate that patients with HgbA1c in the range 5.7-6.4% are at increased risk for development of diabetes, and intervention by lifestyle modification may be beneficial. HgbA1c greater or equal to 6.5% is considered diagnostic of diabetes. Performed By: #### 5 5454-3 ####[facility] LABCLIA [id number] [address] [place] TSH SerPl-aCncon 07-18-2023 TSH Qn 2.150 m[IU]/L Normal 0.270-4.200 [facility] Comment on above: Order Comment: Speci men Type: BLOOD SPECIMENOrdering Facility: [facility] Address: [address] [place] [address] Performed By: #### 2 143-6, 3016-3 ####[facility] LABCLIA [id number] [address] OF [facility] CBC W Auto Differential pane l (Bld)on 06-27-2023 Basophils (Bld) [#/Vol] 0.05 10*3/uL Normal <0.11 [facility] Comment on above: Order Comment: Speci men Type: BLOOD SPECIMENOrdering Facility: [facility] Address: [address] [place] [address] Performed By: #### 5 7021-8 ####[facility] LABCLIA [id number] [place] [address] Basophils/100 WBC (Bld) 0.8 % Normal [facility] Comment on above: Order Comment: Speci men Type: BLOOD SPECIMENOrdering Facility: [facility] Address: [address] [place] [address] Performed By: #### 5 7021-8 ####[facility] LABCLIA [id number] [place] [address] Differential cell count method Nom (Bld) Auto Normal [facility] Comment on above: Order Comment: Speci men Type: BLOOD SPECIMENOrdering Facility: [facility] Address: [address] [place] [address] Performed By: #### 5 7021-8 ####[facility] LABCLIA [id number] [place] [address] Eosinophils (Bld) [#/Vol] 0.28 10*3/uL Normal <0.46 [facility] Comment on above: Order Comment: Speci men Type: BLOOD SPECIMENOrdering Facility: [facility] Address: [address] [place] [address] Performed By: #### 5 7021-8 ####[facility] LABCLIA [id number] [place] [address] Eosinophils/100 WBC (Bld) 4.4 % Normal [facility] Comment on above: Order Comment: Speci men Type: BLOOD SPECIMENOrdering Facility: [facility] Address: [address] [place] [address] Performed By: #### 5 7021-8 ####[facility] LABCLIA [id number] [place] [address] Erythrocyte distribution width (RBC) [Ratio] 13.7 % Normal 11.5-15.0 [facility] Comment on above: Order Comment: Speci men Type: BLOOD SPECIMENOrdering Facility: [facility] Address: [address] [place] [address] Performed By: #### 5 7021-8 ####[facility] LABCLIA [id number] [place] [address] Hematocrit (Bld) [Volume fraction] 39.7 % Normal 39.0-51.0 [facility] Comment on above: Order Comment: Speci men Type: BLOOD SPECIMENOrdering Facility: [facility] Address: [address] [place] [address] Performed By: #### 5 7021-8 ####[facility] LABCLIA [id number] [place] [address] Hemoglobin (Bld) [Mass/Vol] 13.3 g/dL Normal 13.0-17.0 [facility] Comment on above: Order Comment: Speci men Type: BLOOD SPECIMENOrdering Facility: [facility] Address: [address] [place] [address] Performed By: #### 5 7021-8 ####[facility] LABCLIA [id number] [place] [address] Immature granulocytes (Bld) [#/Vol] 10*3/uL Normal <0.10 [facility] Comment on above: Order Comment: Speci men Type: BLOOD SPECIMENOrdering Facility: [facility] Address: [address] [place] [address] Performed By: #### 5 7021-8 ####[facility] LABCLIA [id number] [place] [address] Immature granulocytes/100 WBC (Bld) 0.3 % Normal [facility] Comment on above: Order Comment: Speci men Type: BLOOD SPECIMENOrdering Facility: [facility] Address: [address] [place] [address] Performed By: #### 5 7021-8 ####[facility] LABCLIA [id number] [place] [address] Lymphocytes (Bld) [#/Vol] 0.89 10*3/uL Low 1.00-4.00 [facility] Comment on above: Order Comment: Speci men Type: BLOOD SPECIMENOrdering Facility: [facility] Address: [address] [place] [address] Performed By: #### 5 7021-8 ####[facility] LABCLIA [id number] [place] [address] Lymphocytes/100 WBC (Bld) 14.1 % Normal [facility] Comment on above: Order Comment: Speci men Type: BLOOD SPECIMENOrdering Facility: [facility] Address: [address] [place], [place] [address] Performed By: #### 5 7021-8 ####[facility] LABCLIA [id number] [place] [address] MCH (RBC) [Entitic mass] 28.2 pg Normal 26.0-34.0 [facility] Comment on above: Order Comment: Speci men Type: BLOOD SPECIMENOrdering Facility: [facility] Address: [address] [place] [address] Performed By: #### 5 7021-8 ####[facility] LABCLIA [id number] [place] [address] MCHC (RBC) [Mass/Vol] 33.5 g/dL Normal 30.5-36.0 [facility] Comment on above: Order Comment: Speci men Type: BLOOD SPECIMENOrdering Facility: [facility] Address: [address] [place] [address] Performed By: #### 5 7021-8 ####[facility] LABIA [id number] [place] [address] MCV (RBC) [Entitic vol] 84.3 fL Normal 80.0-100.0 [facility] Comment on above: Order Comment: Speci men Type: BLOOD SPECIMENOrdering Facility: [facility] Address: [address] [place] [address] Performed By: #### 5 7021-8 ####[facility] LABCLIA [id number] [place] [address] Monocytes (Bld) [#/Vol] 0.48 10*3/uL Normal <0.87 [facility] Comment on above: Order Comment: Speci men Type: BLOOD SPECIMENOrdering Facility: [facility] Address: [address] [place] [address] Performed By: #### 5 7021-8 ####[facility] LABCLIA [id number] [place] [address] Monocytes/100 WBC (Bld) 7.6 % Normal [facility] Comment on above: Order Comment: Speci men Type: BLOOD SPECIMENOrdering Facility: [facility] Address: [address] [place] [address] Performed By: #### 5 7021-8 ####[facility] LABCLIA [id number] [place] [address] Neutrophils (Bld) [#/Vol] 4.60 10*3/uL Normal 1.45-7.50 [facility] Comment on above: Order Comment: Speci men Type: BLOOD SPECIMENOrdering Facility: [facility] Address: [address] [place] [address] Performed By: #### 5 7021-8 ####[facility] LABCLIA [id number] [place] [address] Neutrophils/100 WBC (Bld) 72.8 % Normal [facility] Comment on above: Order Comment: Speci men Type: BLOOD SPECIMENOrdering Facility: [facility] Address: [address] [place] [address] Performed By: #### 5 7021-8 ####[facility] LABCLIA [id number] [place] [address] Nucleated RBC (Bld) [#/Vol] 10*3/uL Normal <0.01 [facility] Comment on above: Order Comment: Speci men Type: BLOOD SPECIMENOrdering Facility: [facility] Address: [address] [place] [address] Performed By: #### 5 7021-8 ####[facility] LABIA [id number] [place] [address] Nucleated RBC/100 WBC (Bld) [Ratio] 0.0 /100 WBC Normal [facility] Comment on above: Order Comment: Speci men Type: BLOOD SPECIMENOrdering Facility: [facility] Address: [address] [place] [address] Performed By: #### 5 7021-8 ####[facility] LABCLIA [id number] [place] [address] Platelet mean volume (Bld) [Entitic vol] 9.5 fL Normal 9.0-12.7 [facility] Comment on above: Order Comment: Speci men Type: BLOOD SPECIMENOrdering Facility: [facility] Address: [address] [place] [address] Performed By: #### 5 7021-8 ####[facility] LABCLIA [id number] [place] [address] Platelets (Bld) [#/Vol] 177 10*3/uL Normal 150-400 [facility] Comment on above: Order Comment: Speci men Type: BLOOD SPECIMENOrdering Facility: [facility] Address: [address] [place] [address] Performed By: #### 5 7021-8 ####[facility]IA [id number] [place] [address] RBC (Bld) [#/Vol] 4.71 10*6/uL Normal 4.20-6.00 [facility] Comment on above: Order Comment: Speci men Type: BLOOD SPECIMENOrdering Facility: [facility] Address: [address] [place] [address] Performed By: #### 5 7021-8 ####[facility] [id number] [place] [address] WBC (Bld) [#/Vol] 6.32 10*3/uL Normal 3.70-11.00 [facility] Comment on above: Order Comment: Speci men Type: BLOOD SPECIMENOrdering Facility: [facility] Address: [address] [place] [address] Performed By: #### 5 7021-8 ####[facility] LABIA [id number] [place] [address] CNOVSPon 06-27-2023 CNOVSP Normal [facility] Comprehensive metabolic 2000 panelon 06-27-2023 Albumin [Mass/Vol] 4.1 g/dL Normal 3.9-4.9 [facility] Comment on above: Order Comment: Speci men Type: BLOOD SPECIMENOrdering Facility: [facility] Address: [address] [place] [address] Performed By: #### 2 4323-8 ####[facility] LABCLIA [id number] [place] [address] ALP [Catalytic activity/Vol] 83 U/L Normal 38-113 [facility] Comment on above: Order Comment: Speci men Type: BLOOD SPECIMENOrdering Facility: [facility] Address: [address] [place] [address] Performed By: #### 2 4323-8 ####[facility] LABCLIA [id number] [place] [address] ALT [Catalytic activity/Vol] 21 U/L Normal 10-54 [facility] Comment on above: Order Comment: Speci men Type: BLOOD SPECIMENOrdering Facility: [facility] Address: [address] [place] [address] Performed By: #### 2 4323-8 ####[facility] LABCLIA [id number] [place] [address] Anion gap [Moles/Vol] 10 mmol/L Normal 9-18 [facility] Comment on above: Order Comment: Speci men Type: BLOOD SPECIMENOrdering Facility: [facility] Address: [address] [place] [address] Performed By: #### 2 4323-8 ####[facility] LABCLIA [id number] [place] [address] AST [Catalytic activity/Vol] 28 U/L Normal 14-40 [facility] Comment on above: Order Comment: Speci men Type: BLOOD SPECIMENOrdering Facility: [facility] Address: [address] [place] [address] Performed By: #### 2 4323-8 ####[facility] LABCLIA [id number] [place] [address] Bilirubin [Mass/Vol] 0.4 mg/dL Normal 0.2-1.3 [facility] Comment on above: Order Comment: Speci men Type: BLOOD SPECIMENOrdering Facility: [facility] Address: [address] [place] [address] Performed By: #### 2 4323-8 ####[facility] LABCLIA [id number] [place] [address] Calcium [Mass/Vol] 8.9 mg/dL Normal 8.5-10.2 [facility] Comment on above: Order Comment: Speci men Type: BLOOD SPECIMENOrdering Facility: [facility] Address: [address] [place] [address] Performed By: #### 2 4323-8 ####[facility] LABCLIA [id number] [place] [address] Chloride [Moles/Vol] 105 mmol/L Normal 97-105 [facility] Comment on above: Order Comment: Speci men Type: BLOOD SPECIMENOrdering Facility: [facility] Address: [address] [place] [address] Performed By: #### 2 4323-8 ####[facility] LABCLIA [id number] [place] [address] CO2 [Moles/Vol] 24 mmol/L Normal 22-30 [facility] Comment on above: Order Comment: Speci men Type: BLOOD SPECIMENOrdering Facility: [facility] Address: [address] [place] [address] Performed By: #### 2 4323-8 ####[facility] LABCLIA [id number] [place] [address] Creatinine [Mass/Vol] 1.89 mg/dL High 0.73-1.22 [facility] Comment on above: Order Comment: Speci men Type: BLOOD SPECIMENOrdering Facility: [facility] Address: [address] [id number] Performed By: #### 2 4323-8 ####[facility] LABCLIA [id number] [place] [address] Creatinine and Glomerular filtration rate.predicted panel (S/P/Bld) 35 mL/min/1.73m??? Low >=60 [facility] Comment on above: Order Comment: Specronnie men Type: BLOOD SPECIMENOrdering Facility: [facility] Address: [address] [address] Result Comment: Viviana mated Glomerular Filtration Rate [...] #### 2 4323-8 ####[facility] LABCLIA [id number] [place] [address] Glucose [Mass/Vol] 106 mg/dL High 74-99 [facility] Comment on above: Order Comment: Vero oralia Type: BLOOD SPECIMENOrdering Facility: [facility] Address: [address] [place] [address] Result Comment: The [place] Diabetes Association (ADA) provides guidance for cutoff [...] Standards of Medical Care in Diabetes 2016, [place] [employer]. Diabetes Care. 2016.39(Suppl 1). Performed By: #### 2 4323-8 ####[facility] LABCLIA [id number] [place] [address] Potassium [Moles/Vol] 4.4 mmol/L Normal 3.7-5.1 [facility] Comment on above: Order Comment: Speci men Type: BLOOD SPECIMENOrdering Facility: [facility] Address: [address] [place] [address] Performed By: #### 2 4323-8 ####[facility] LABCLIA [id number] [place] [address] Protein [Mass/Vol] 6.0 g/dL Low 6.3-8.0 [facility] Comment on above: Order Comment: Speci men Type: BLOOD SPECIMENOrdering Facility: [facility] Address: [address] [place] [address] Performed By: #### 2 4323-8 ####[facility] LABCLIA [id number] [place] [address] Sodium [Moles/Vol] 139 mmol/L Normal 136-144 [facility] Comment on above: Order Comment: Speci men Type: BLOOD SPECIMENOrdering Facility: [facility] Address: [address] [place] [address] Performed By: #### 2 4323-8 ####[facility] LABCLIA [id number] [place] [address] Urea nitrogen [Mass/Vol] 31 mg/dL High 9-24 [facility] Comment on above: Order Comment: Speci men Type: BLOOD SPECIMENOrdering Facility: [facility] Address: [address] [place] [address] Performed By: #### 2 4323-8 ####[facility] LABCLIA [id number] [place] [address] Cortis Nainal-Ricaon 06-27-20 23 Cortisol [Mass/Vol] 9.7 ug/dL Normal 4.8-19.5 [facility] Comment on above: Order Comment: Farrahi oralia Type: BLOOD SPECIMENOrdering Facility: [facility] Address: [address] [place] [address] Result Comment: Prov ided reference range is from 6-10 AM sample collection time.Cortisol Reference Range: 6-10 AM = 4.8-19.5 ug/dL, 4-8 PM = 2.5-11.9 ug/dL Performed By: #### 2 143-6, 3016-3 ####[facility] LABCLIA [id number] [place] [address] [place] HbA1c (Bld)on 06-27-2023 Average glucose Estimated from glycated hemoglobin (Bld) [Mass/Vol] 105 mg/dL Normal [facility] Comment on above: Order Comment: Vero oralia Type: BLOOD SPECIMENOrdering Facility: [facility] Address: [address] [place] [address] Result Comment: eAG: (Estimated average glucose) is a calculated value from HgbA1c and is provider relations representative of the average blood glucose level in the last 2-3 month period. Performed By: #### 5 5454-3 ####[facility] LABCLIA [id number] [place] [address] [place] HbA1c (Bld) [Mass fraction] 5.3 % Normal 4.3-5.6 [facility] Comment on above: Order Comment: Farrahronnie barton Type: BLOOD SPECIMENOrdering Facility: [facility] Address: [address] [place] [address] Result Comment: [place] Diabetes Association guidelines indicate that patients with HgbA1c in the range 5.7-6.4% are at increased risk for development of diabetes, and intervention by lifestyle modification may be beneficial. HgbA1c greater or equal to 6.5% is considered diagnostic of diabetes. Performed By: #### 5 5454-3 ####[facility] LABCLIA [id number] [place] [address] [place] TSH SerPl-aCncon 06-27-2023 TSH Qn 1.920 m[IU]/L Normal 0.270-4.200 [facility] Comment on above: Order Comment: Speci men Type: BLOOD SPECIMENOrdering Facility: [facility] Address: [address] [place] [address] Performed By: #### 2 143-6, 3016-3 ####[facility] LABCLIA [id number] [facility] [id number] [place] [address] CBC W Auto Differential pane l (Bld)on 06-06-2023 Basophils (Bld) [#/Vol] 0.05 10*3/uL Normal <0.11 [facility] Comment on above: Order Comment: Speci men Type: BLOOD SPECIMENOrdering Facility: [facility] Address: [address] [place] [address] Performed By: #### 5 7021-8 ####[facility] LABCLIA [id number] [place] [address] Basophils/100 WBC (Bld) 0.8 % Normal [facility] Comment on above: Order Comment: Speci men Type: BLOOD SPECIMENOrdering Facility: [facility] Address: [address] [place] [address] Performed By: #### 5 7021-8 ####[facility] LABCLIA [id number] [place] [address] Differential cell count method Nom (Bld) Auto Normal [facility] Comment on above: Order Comment: Speci men Type: BLOOD SPECIMENOrdering Facility: [facility] Address: [address] [place] [address] Performed By: #### 5 7021-8 ####[facility] LABCLIA [id number] [place] [address] Eosinophils (Bld) [#/Vol] 0.32 10*3/uL Normal <0.46 [facility] Comment on above: Order Comment: Speci men Type: BLOOD SPECIMENOrdering Facility: [facility] Address: [address] [address] Performed By: #### 5 7021-8 ####[facility] LABCLIA [id number] [place] [address] Eosinophils/100 WBC (Bld) 4.8 % Normal [facility] Comment on above: Order Comment: Speci men Type: BLOOD SPECIMENOrdering Facility: [facility] Address: [address] [place] [address] Performed By: #### 5 7021-8 ####[facility] LABCLIA [id number] [place] [address] Erythrocyte distribution width (RBC) [Ratio] 13.8 % Normal 11.5-15.0 [facility] Comment on above: Order Comment: Speci men Type: BLOOD SPECIMENOrdering Facility: [facility] Address: [address] [place] [address] Performed By: #### 5 7021-8 ####[facility] LABCLIA [id number] [place] [address] Hematocrit (Bld) [Volume fraction] 42.6 % Normal 39.0-51.0 [facility] Comment on above: Order Comment: Speci men Type: BLOOD SPECIMENOrdering Facility: [facility] Address: [address] [place] [address] Performed By: #### 5 7021-8 ####[facility] LABCLIA [id number] [place] [address] Hemoglobin (Bld) [Mass/Vol] 14.4 g/dL Normal 13.0-17.0 [facility] Comment on above: Order Comment: Speci men Type: BLOOD SPECIMENOrdering Facility: [facility] Address: [address] [place] [address] Performed By: #### 5 7021-8 ####[facility] LABCLIA [id number] [place] [address] Immature granulocytes (Bld) [#/Vol] 0.03 10*3/uL Normal <0.10 [facility] Comment on above: Order Comment: Speci men Type: BLOOD SPECIMENOrdering Facility: [facility] Address: [address] [place] [address] Performed By: #### 5 7021-8 ####[facility] LABCLIA [id number] [place] [address] Immature granulocytes/100 WBC (Bld) 0.5 % Normal [facility] Comment on above: Order Comment: Speci men Type: BLOOD SPECIMENOrdering Facility: [facility] Address: [address] [place] [address] Performed By: #### 5 7021-8 ####[facility] LABCLIA [id number] [place] [address] Lymphocytes (Bld) [#/Vol] 0.93 10*3/uL Low 1.00-4.00 [facility] Comment on above: Order Comment: Speci men Type: BLOOD SPECIMENOrdering Facility: [facility] Address: [address] [place] [address] Performed By: #### 5 7021-8 ####[facility] LABCLIA [id number] [place] [address] Lymphocytes/100 WBC (Bld) 14.1 % Normal [facility] Comment on above: Order Comment: Speci men Type: BLOOD SPECIMENOrdering Facility: [facility] Address: [address] [place] [address] Performed By: #### 5 7021-8 ####[facility] LABCLIA [id number] [place] [address] MCH (RBC) [Entitic mass] 28.7 pg Normal 26.0-34.0 [facility] Comment on above: Order Comment: Speci men Type: BLOOD SPECIMENOrdering Facility: [facility] Address: [address] [place] [address] Performed By: #### 5 7021-8 ####[facility] LABCLIA [id number] [place] [address] MCHC (RBC) [Mass/Vol] 33.8 g/dL Normal 30.5-36.0 [facility] Comment on above: Order Comment: Speci men Type: BLOOD SPECIMENOrdering Facility: [facility] Address: [address] [place] [address] Performed By: #### 5 7021-8 ####[facility] LABCLIA [id number] [place] [address] MCV (RBC) [Entitic vol] 84.9 fL Normal 80.0-100.0 [facility] Comment on above: Order Comment: Speci men Type: BLOOD SPECIMENOrdering Facility: [facility] Address: [address] [place] [address] Performed By: #### 5 7021-8 ####[facility] LABIA [id number] [place] [address] Monocytes (Bld) [#/Vol] 0.42 10*3/uL Normal <0.87 [facility] Comment on above: Order Comment: Speci men Type: BLOOD SPECIMENOrdering Facility: [facility] Address: [address] [place] [address] Performed By: #### 5 7021-8 ####[facility] LABCLIA [id number] [place] [address] Monocytes/100 WBC (Bld) 6.4 % Normal [facility] Comment on above: Order Comment: Speci men Type: BLOOD SPECIMENOrdering Facility: [facility] Address: [address] [place] [address] Performed By: #### 5 7021-8 ####[facility] LABCLIA [id number] [place] [address] Neutrophils (Bld) [#/Vol] 4.85 10*3/uL Normal 1.45-7.50 [facility] Comment on above: Order Comment: Speci men Type: BLOOD SPECIMENOrdering Facility: [facility] Address: [address] [address] Performed By: #### 5 7021-8 ####[facility] LABCLIA [id number] [place] [address] Neutrophils/100 WBC (Bld) 73.4 % Normal [facility] Comment on above: Order Comment: Speci men Type: BLOOD SPECIMENOrdering Facility: [facility] Address: [address] [address] Performed By: #### 5 7021-8 ####[facility] LABCLIA [id number] [place] [address] Nucleated RBC (Bld) [#/Vol] 10*3/uL Normal <0.01 [facility] Comment on above: Order Comment: Speci men Type: BLOOD SPECIMENOrdering Facility: [facility] Address: [address] [address] Performed By: #### 5 7021-8 ####[facility] LABCLIA [id number] [place] [address] Nucleated RBC/100 WBC (Bld) [Ratio] 0.0 /100 WBC Normal [facility] Comment on above: Order Comment: Speci men Type: BLOOD SPECIMENOrdering Facility: [facility] Address: [address] [address] Performed By: #### 5 7021-8 ####[facility] LABIA [id number] [place] [address] Platelet mean volume (Bld) [Entitic vol] 9.0 fL Normal 9.0-12.7 [facility] Comment on above: Order Comment: Speci men Type: BLOOD SPECIMENOrdering Facility: [facility] Address: [address] [place] [address] Performed By: #### 5 7021-8 ####[facility] LABCLIA [id number] [place] [address] Platelets (Bld) [#/Vol] 185 10*3/uL Normal 150-400 [facility] Comment on above: Order Comment: Speci men Type: BLOOD SPECIMENOrdering Facility: [facility] Address: [address] [place] [address] Performed By: #### 5 7021-8 ####[facility] LABCLIA [id number] [place] [address] RBC (Bld) [#/Vol] 5.02 10*6/uL Normal 4.20-6.00 [facility] Comment on above: Order Comment: Speci men Type: BLOOD SPECIMENOrdering Facility: [facility] Address: [address] [place] [address] Performed By: #### 5 7021-8 ####[facility] LABIA [id number] [place] [address] WBC (Bld) [#/Vol] 6.60 10*3/uL Normal 3.70-11.00 [facility] Comment on above: Order Comment: Speci men Type: BLOOD SPECIMENOrdering Facility: [facility] Address: [address] [place] [address] Performed By: #### 5 7021-8 ####[facility] LABCLIA [id number] [place] [address] CNOVSPon 06-06-2023 CNOVSP Normal [facility] Comprehensive metabolic 2000 panelon 06-06-2023 Albumin [Mass/Vol] 4.6 g/dL Normal 3.9-4.9 [facility] Comment on above: Order Comment: Speci men Type: BLOOD SPECIMENOrdering Facility: [facility] Address: [address] [place] [address] Performed By: #### 2 4323-8 ####[facility] LABCLIA [id number] [place] [address] ALP [Catalytic activity/Vol] 82 U/L Normal 38-113 [facility] Comment on above: Order Comment: Speci men Type: BLOOD SPECIMENOrdering Facility: [facility] Address: [address] [address] Performed By: #### 2 4323-8 ####[facility] LABCLIA [id number] [place] [address] ALT [Catalytic activity/Vol] 17 U/L Normal 10-54 [facility] Comment on above: Order Comment: Speci men Type: BLOOD SPECIMENOrdering Facility: [facility] Address: [address] [place] [address] Performed By: #### 2 4323-8 ####[facility] LABCLIA [id number] [place] [address] Anion gap [Moles/Vol] 9 mmol/L Normal 9-18 [facility] Comment on above: Order Comment: Speci men Type: BLOOD SPECIMENOrdering Facility: [facility] Address: [address] [place] [address] Performed By: #### 2 4323-8 ####[facility] LABCLIA [id number] [place] [address] AST [Catalytic activity/Vol] 25 U/L Normal 14-40 [facility] Comment on above: Order Comment: Speci men Type: BLOOD SPECIMENOrdering Facility: [facility] Address: [address] [address] Performed By: #### 2 4323-8 ####[facility] LABCLIA [id number] [place] [address] Bilirubin [Mass/Vol] 0.6 mg/dL Normal 0.2-1.3 [facility] Comment on above: Order Comment: Speci men Type: BLOOD SPECIMENOrdering Facility: [facility] Address: [address] [place] [address] Performed By: #### 2 4323-8 ####[facility] LABCLIA [id number] [place] [address] Calcium [Mass/Vol] 9.2 mg/dL Normal 8.5-10.2 [facility] Comment on above: Order Comment: Speci men Type: BLOOD SPECIMENOrdering Facility: [facility] Address: [address] [place] [address] Performed By: #### 2 4323-8 ####[facility] LABCLIA [id number] [place] [address] Chloride [Moles/Vol] 104 mmol/L Normal 97-105 [facility] Comment on above: Order Comment: Speci men Type: BLOOD SPECIMENOrdering Facility: [facility] Address: [address] [place] [address] Performed By: #### 2 4323-8 ####[facility] LABCLIA [id number] [place] [address] CO2 [Moles/Vol] 25 mmol/L Normal 22-30 [facility] Comment on above: Order Comment: Speci men Type: BLOOD SPECIMENOrdering Facility: [facility] Address: [address] [place] [address] Performed By: #### 2 4323-8 ####[facility] LABCLIA [id number] [place] [address] Creatinine [Mass/Vol] 2.01 mg/dL High 0.73-1.22 [facility] Comment on above: Order Comment: Speci men Type: BLOOD SPECIMENOrdering Facility: [facility] Address: [address] [place] [address] Performed By: #### 2 4323-8 ####[facility] LABCLIA [id number] [place] [address] Creatinine and Glomerular filtration rate.predicted panel (S/P/Bld) 32 mL/min/1.73m??? Low >=60 [facility] Comment on above: Order Comment: Vero barton Type: BLOOD SPECIMENOrdering Facility: [facility] Address: [address] [id number] Result Comment: Viviana mated Glomerular Filtration Rate [...] #### 2 4323-8 ####[facility] LABCLIA [id number] [place] [address] Glucose [Mass/Vol] 100 mg/dL High 74-99 [facility] Comment on above: Order Comment: Vero barton Type: BLOOD SPECIMENOrdering Facility: [facility] Address: [address] [address] Result Comment: The [place] Diabetes Association (ADA) provides guidance for cutoff [...] Standards of Medical Care in Diabetes 2016, [place] [employer]. Diabetes Care. 2016.39(Suppl 1). Performed By: #### 2 4323-8 ####[facility] LABCLIA [id number] [place] [address] Potassium [Moles/Vol] 4.6 mmol/L Normal 3.7-5.1 [facility] Comment on above: Order Comment: Vero barton Type: BLOOD SPECIMENOrdering Facility: [facility] Address: [address] Performed By: #### 2 4323-8 ####[facility] LABCLIA [id number] [place] [address] Protein [Mass/Vol] 6.5 g/dL Normal 6.3-8.0 [facility] Comment on above: Order Comment: Speci men Type: BLOOD SPECIMENOrdering Facility: [facility] Address: [address] [place] [address] Performed By: #### 2 4323-8 ####[facility] LABCLIA [id number] [place] [address] Sodium [Moles/Vol] 138 mmol/L Normal 136-144 [facility] Comment on above: Order Comment: Speci men Type: BLOOD SPECIMENOrdering Facility: [facility] Address: [address] [place] [address] Performed By: #### 2 4323-8 ####[facility] LABCLIA [id number] [place] [address] Urea nitrogen [Mass/Vol] 36 mg/dL High 9-24 [facility] Comment on above: Order Comment: Speci men Type: BLOOD SPECIMENOrdering Facility: [facility] Address: [address] [place] [address] Performed By: #### 2 4323-8 ####[facility] LABCLIA [id number] [place] [address] Cortshaye Koehler 06-06-20 23 Cortisol [Mass/Vol] 6.4 ug/dL Normal 4.8-19.5 [facility] Comment on above: Order Comment: Speci men Type: BLOOD SPECIMENOrdering Facility: [facility] Address: [address] [place] [address] Result Comment: Prov ided reference range is from 6-10 AM sample collection time.Cortisol Reference Range: 6-10 AM = 4.8-19.5 ug/dL, 4-8 PM = 2.5-11.9 ug/dL Performed By: #### 3 016-3, 2143-6 ####[facility] LABIA [id number] [address] HbA1c (Bld)on 06-06-2023 Average glucose Estimated from glycated hemoglobin (Bld) [Mass/Vol] 97 mg/dL Normal [facility] Comment on above: Order Comment: Speci men Type: BLOOD SPECIMENOrdering Facility: [facility] Address: [address] [place] [address] Result Comment: eAG: (Estimated average glucose) is a calculated value from HgbA1c and is provider relations representative of the average blood glucose level in the last 2-3 month period. Performed By: #### 5 5454-3 ####[facility] [id number] [address] HbA1c (Bld) [Mass fraction] 5.0 % Normal 4.3-5.6 [facility] Comment on above: Order Comment: [facility] Type: BLOOD SPECIMENOrdering Facility: [facility] Address: [address] [place] [address] Result Comment: [place] Diabetes Association guidelines indicate that patients with HgbA1c in the range 5.7-6.4% are at increased risk for development of diabetes, and intervention by lifestyle modification may be beneficial. HgbA1c greater or equal to 6.5% is considered diagnostic of diabetes. Performed By: #### 5 5454-3 ####[facility] [id number] [address] [facility] TSH SerPl-aCncon 06-06-2023 TSH Qn 4.600 m[IU]/L High 0.270-4.200 [facility] Comment on above: Order Comment: [facility] Type: BLOOD SPECIMENOrdering Facility: [facility] Address: [address] [place] [address] Performed By: #### 3 016-3, 2143-03 ####[facility] [id number] [address] [place] [address] [place] ABD/PEL W IVCONon 023 CT ABD/PEL W IVCON Normal [facility] CT CHEST W IVCONon 3 CT CHEST W IVCON Normal [facility] CBC W Auto Differential pane l (Bld)on 05-16-2023 Basophils (Bld) [#/Vol] 0.05 10*3/uL Normal <0.11 [facility] Comment on above: Order Comment: Speci men Type: BLOOD SPECIMENOrdering Facility: [facility] Address: [address] [address] Performed By: #### 5 7021-8 ####[facility] LABCLIA [id number] [place] [address] Basophils/100 WBC (Bld) 0.7 % Normal [facility] Comment on above: Order Comment: Speci men Type: BLOOD SPECIMENOrdering Facility: [facility] Address: [address] [place] [address] Performed By: #### 5 7021-8 ####[facility] LABCLIA [id number] [place] [address] Differential cell count method Nom (Bld) Auto Normal [facility] Comment on above: Order Comment: Speci men Type: BLOOD SPECIMENOrdering Facility: [facility] Address: [address] [address] Performed By: #### 5 7021-8 ####[facility] LABCLIA [id number] [place] [address] Eosinophils (Bld) [#/Vol] 0.31 10*3/uL Normal <0.46 [facility] Comment on above: Order Comment: Speci men Type: BLOOD SPECIMENOrdering Facility: [facility] Address: [address] [address] Performed By: #### 5 7021-8 ####[facility] LABCLIA [id number] [place] [address] Eosinophils/100 WBC (Bld) 4.5 % Normal [facility] Comment on above: Order Comment: Speci men Type: BLOOD SPECIMENOrdering Facility: [facility] Address: [address] [place] [address] Performed By: #### 5 7021-8 ####[facility] LABCLIA [id number] [place] [address] Erythrocyte distribution width (RBC) [Ratio] 14.3 % Normal 11.5-15.0 [facility] Comment on above: Order Comment: Speci men Type: BLOOD SPECIMENOrdering Facility: [facility] Address: [address] [place] [address] Performed By: #### 5 7021-8 ####[facility] LABCLIA [id number] [place] [address] Hematocrit (Bld) [Volume fraction] 40.4 % Normal 39.0-51.0 [facility] Comment on above: Order Comment: Speci men Type: BLOOD SPECIMENOrdering Facility: [facility] Address: [address] [place] [address] Performed By: #### 5 7021-8 ####[facility] LABCLIA [id number] [place] [address] Hemoglobin (Bld) [Mass/Vol] 13.3 g/dL Normal 13.0-17.0 [facility] Comment on above: Order Comment: Speci men Type: BLOOD SPECIMENOrdering Facility: [facility] Address: [address] [place] [address] Performed By: #### 5 7021-8 ####[facility] LABCLIA [id number] [place] [address] Immature granulocytes (Bld) [#/Vol] 10*3/uL Normal <0.10 [facility] Comment on above: Order Comment: Speci men Type: BLOOD SPECIMENOrdering Facility: [facility] Address: [address] [address] Performed By: #### 5 7021-8 ####[facility] LABCLIA [id number] [place] [address] Immature granulocytes/100 WBC (Bld) 0.3 % Normal [facility] Comment on above: Order Comment: Speci men Type: BLOOD SPECIMENOrdering Facility: [facility] Address: [address] [place] [address] Performed By: #### 5 7021-8 ####[facility] LABCLIA [id number] [place] [address] Lymphocytes (Bld) [#/Vol] 0.94 10*3/uL Low 1.00-4.00 [facility] Comment on above: Order Comment: Speci men Type: BLOOD SPECIMENOrdering Facility: [facility] Address: [address] [place] [address] Performed By: #### 5 7021-8 ####[facility] LABIA [id number] [place] [address] Lymphocytes/100 WBC (Bld) 13.6 % Normal [facility] Comment on above: Order Comment: Speci men Type: BLOOD SPECIMENOrdering Facility: [facility] Address: [address] [place] [address] Performed By: #### 5 7021-8 ####[facility] LABCLIA [id number] [place] [address] MCH (RBC) [Entitic mass] 27.8 pg Normal 26.0-34.0 [facility] Comment on above: Order Comment: Speci men Type: BLOOD SPECIMENOrdering Facility: [facility] Address: [address] [place] [address] Performed By: #### 5 7021-8 ####[facility] LABCLIA [id number] [place] [address] MCHC (RBC) [Mass/Vol] 32.9 g/dL Normal 30.5-36.0 [facility] Comment on above: Order Comment: Speci men Type: BLOOD SPECIMENOrdering Facility: [facility] Address: [address] [place] [address] Performed By: #### 5 7021-8 ####[facility] LABCLIA [id number] [place] [address] MCV (RBC) [Entitic vol] 84.5 fL Normal 80.0-100.0 [facility] Comment on above: Order Comment: Speci men Type: BLOOD SPECIMENOrdering Facility: [facility] Address: [address] [place] [address] Performed By: #### 5 7021-8 ####[facility] LABCLIA [id number] [place] [address] Monocytes (Bld) [#/Vol] 0.33 10*3/uL Normal <0.87 [facility] Comment on above: Order Comment: Speci men Type: BLOOD SPECIMENOrdering Facility: [facility] Address: [address] [place] [address] Performed By: #### 5 7021-8 ####[facility] LABCLIA [id number] [place] [address] Monocytes/100 WBC (Bld) 4.8 % Normal [facility] Comment on above: Order Comment: Speci men Type: BLOOD SPECIMENOrdering Facility: [facility] Address: [address] [place] [address] Performed By: #### 5 7021-8 ####[facility] LABCLIA [id number] [place] [address] Neutrophils (Bld) [#/Vol] 5.26 10*3/uL Normal 1.45-7.50 [facility] Comment on above: Order Comment: Speci men Type: BLOOD SPECIMENOrdering Facility: [facility] Address: [address] [place] [address] Performed By: #### 5 7021-8 ####[facility] LABCLIA [id number] [place] [address] Neutrophils/100 WBC (Bld) 76.1 % Normal [facility] Comment on above: Order Comment: Speci men Type: BLOOD SPECIMENOrdering Facility: [facility] Address: [address] [place] [address] Performed By: #### 5 7021-8 ####[facility] LABCLIA [id number] [place] [address] Nucleated RBC (Bld) [#/Vol] 10*3/uL Normal <0.01 [facility] Comment on above: Order Comment: Speci men Type: BLOOD SPECIMENOrdering Facility: [facility] Address: [address] [place] [address] Performed By: #### 5 7021-8 ####[facility] LABCLIA [id number] [place] [address] Nucleated RBC/100 WBC (Bld) [Ratio] 0.0 /100 WBC Normal [facility] Comment on above: Order Comment: Speci men Type: BLOOD SPECIMENOrdering Facility: [facility] Address: [address] [place] [address] Performed By: #### 5 7021-8 ####[facility] LABCLIA [id number] [place] [address] Platelet mean volume (Bld) [Entitic vol] 8.8 fL Low 9.0-12.7 [facility] Comment on above: Order Comment: Speci men Type: BLOOD SPECIMENOrdering Facility: [facility] Address: [address] [place] [address] Performed By: #### 5 7021-8 ####[facility] LABCLIA [id number] [place] [address] Platelets (Bld) [#/Vol] 188 10*3/uL Normal 150-400 [facility] Comment on above: Order Comment: Speci men Type: BLOOD SPECIMENOrdering Facility: [facility] Address: [address] [place] [address] Performed By: #### 5 7021-8 ####[facility] LABIA [id number] [place] [address] RBC (Bld) [#/Vol] 4.78 10*6/uL Normal 4.20-6.00 [facility] Comment on above: Order Comment: Speci men Type: BLOOD SPECIMENOrdering Facility: [facility] Address: [address] [place] [address] Performed By: #### 5 7021-8 ####[facility] LABIA [id number] [place] [address] WBC (Bld) [#/Vol] 6.91 10*3/uL Normal 3.70-11.00 [facility] Comment on above: Order Comment: Speci men Type: BLOOD SPECIMENOrdering Facility: [facility] Address: [address] [place] [address] Performed By: #### 5 7021-8 ####[facility] LABIA [id number] [place] [address] CNOVSPon 05-16-2023 CNOVSP Normal [facility] Comprehensive metabolic 2000 panelon 05-16-2023 Albumin [Mass/Vol] 4.2 g/dL Normal 3.9-4.9 [facility] Comment on above: Order Comment: Speci men Type: BLOOD SPECIMENOrdering Facility: [facility] Address: [address] [place] [address] Performed By: #### 2 4323-8 ####[facility] LABIA [id number] [place] [address] ALP [Catalytic activity/Vol] 75 U/L Normal 38-113 [facility] Comment on above: Order Comment: Speci men Type: BLOOD SPECIMENOrdering Facility: [facility] Address: [address] [place], [place] [address] Performed By: #### 2 4323-8 ####[facility] LABCLIA [id number] [place] [address] ALT [Catalytic activity/Vol] 17 U/L Normal 10-54 [facility] Comment on above: Order Comment: Speci men Type: BLOOD SPECIMENOrdering Facility: [facility] Address: [address] [address] Performed By: #### 2 4323-8 ####[facility] LABCLIA [id number] [place] [address] Anion gap [Moles/Vol] 9 mmol/L Normal 9-18 [facility] Comment on above: Order Comment: Speci men Type: BLOOD SPECIMENOrdering Facility: [facility] Address: [address] [address] Performed By: #### 2 4323-8 ####[facility] LABCLIA [id number] [place] [address] AST [Catalytic activity/Vol] 26 U/L Normal 14-40 [facility] Comment on above: Order Comment: Speci men Type: BLOOD SPECIMENOrdering Facility: [facility] Address: [address] [address] Performed By: #### 2 4323-8 ####[facility] LABCLIA [id number] [place] [address] Bilirubin [Mass/Vol] 0.5 mg/dL Normal 0.2-1.3 [facility] Comment on above: Order Comment: Speci men Type: BLOOD SPECIMENOrdering Facility: [facility] Address: [address] [address] Performed By: #### 2 4323-8 ####[facility] LABCLIA [id number] [place] [address] Calcium [Mass/Vol] 8.9 mg/dL Normal 8.5-10.2 [facility] Comment on above: Order Comment: Speci men Type: BLOOD SPECIMENOrdering Facility: [facility] Address: [address] [place] [address] Performed By: #### 2 4323-8 ####[facility] LABCLIA [id number] [place] [address] Chloride [Moles/Vol] 103 mmol/L Normal 97-105 [facility] Comment on above: Order Comment: Speci men Type: BLOOD SPECIMENOrdering Facility: [facility] Address: [address] [place] [address] Performed By: #### 2 4323-8 ####[facility] LABCLIA [id number] [place] [address] CO2 [Moles/Vol] 25 mmol/L Normal 22-30 [facility] Comment on above: Order Comment: Speci men Type: BLOOD SPECIMENOrdering Facility: [facility] Address: [address] [place] [address] Performed By: #### 2 4323-8 ####[facility] LABCLIA [id number] [place] [address] Creatinine [Mass/Vol] 1.87 mg/dL High 0.73-1.22 [facility] Comment on above: Order Comment: Speci men Type: BLOOD SPECIMENOrdering Facility: [facility] Address: [address] [place] [address] Performed By: #### 2 4323-8 ####[facility] LABCLIA [id number] [place] [address] ESTIMATED GLOMERULAR FILTRATION RATE 35 mL/min/1.73m??? Low >=60 [facility] Comment on above: Order Comment: Speci men Type: BLOOD SPECIMENOrdering Facility: [facility] Address: [address] [place] [address] Result Comment: Viviana mated Glomerular Filtration Rate [...] #### 2 4323-8 ####[facility] LABCLIA [id number] [place] [address] Glucose [Mass/Vol] 142 mg/dL High 74-99 [facility] Comment on above: Order Comment: Speci men Type: BLOOD SPECIMENOrdering Facility: [facility] Address: [address] [place] [phone] Result Comment: The [place] Diabetes Association (ADA) provides guidance for cutoff [...] Standards of Medical Care in Diabetes 2016, [place] Diabetes Association. Diabetes Care. 2016.39(Suppl 1). Performed By: #### 2 4323-8 ####[facility] LABCLIA [id number] [place] [address] Potassium [Moles/Vol] 3.9 mmol/L Normal 3.7-5.1 [facility] Comment on above: Order Comment: Speci men Type: BLOOD SPECIMENOrdering Facility: [facility] Address: [address] [place] [phone] Performed By: #### 2 4323-8 ####[facility] LABCLIA [id number] [place] [address] Protein [Mass/Vol] 6.1 g/dL Low 6.3-8.0 [facility] Comment on above: Order Comment: Speci men Type: BLOOD SPECIMENOrdering Facility: [facility] Address: [address] [address] Performed By: #### 2 4323-8 ####[facility] LABCLIA [id number] [place] [address] Sodium [Moles/Vol] 137 mmol/L Normal 136-144 [facility] Comment on above: Order Comment: Speci men Type: BLOOD SPECIMENOrdering Facility: [facility] Address: [address] [address] Performed By: #### 2 4323-8 ####[facility] LABCLIA [id number] [place] [address] Urea nitrogen [Mass/Vol] 24 mg/dL Normal 9-24 [facility] Comment on above: Order Comment: Speci men Type: BLOOD SPECIMENOrdering Facility: [facility] Address: [address] [address] Performed By: #### 2 4323-8 ####[facility] LABCLIA [id number] [place] [address] Beverly Koehler 05-16-20 23 Cortisol [Mass/Vol] 9.2 ug/dL Normal 4.8-19.5 [facility] Comment on above: Order Comment: Speci men Type: BLOOD SPECIMENOrdering Facility: [facility] Address: [address] [place] [address] Result Comment: Prov ided reference range is from 6-10 AM sample collection time.Cortisol Reference Range: 6-10 AM = 4.8-19.5 ug/dL, 4-8 PM = 2.5-11.9 ug/dL Performed By: #### 2 143-6, 3016-3 ####[facility] LABCLIA [id number] [facility] [id number] [address] [place] HbA1c (Bld)on 05-16-2023 Average glucose Estimated from glycated hemoglobin (Bld) [Mass/Vol] 94 mg/dL Normal [facility] Comment on above: Order Comment: [facility] Type: BLOOD SPECIMENOrdering Facility: [facility] Address: [address] [place] [address] Result Comment: eAG: (Estimated average glucose) is a calculated value from HgbA1c and is provider relations representative of the average blood glucose level in the last 2-3 month period. Performed By: #### 5 5454-3 ####[facility] LABCLIA [id number] [address] HbA1c (Bld) [Mass fraction] 4.9 % Normal 4.3-5.6 [facility] Comment on above: Order Comment: [facility] Type: BLOOD SPECIMENOrdering Facility: [facility] Address: [address] [place] [address] Result Comment: [place] Diabetes Association guidelines indicate that patients with HgbA1c in the range 5.7-6.4% are at increased risk for development of diabetes, and intervention by lifestyle modification may be beneficial. HgbA1c greater or equal to 6.5% is considered diagnostic of diabetes. Performed By: #### 5 5454-3 ####[facility] LABIA [id number] [address] [facility] TSH SerPl-aCncon 05-16-2023 TSH Qn 2.580 m[IU]/L Normal 0.270-4.200 [facility] Comment on above: Order Comment: [facility]ia Type: BLOOD SPECIMENOrdering Facility: [facility] Address: [address] [place] [address] Performed By: #### 2 143-6, 3016-3 ####[facility] LABIA [id number] [address] OF [facility] Consultation Noteon 04-26-20 23 Consultation Note [id number]#[id number] 0CD:127 Normal [facility] Follow-Upon 04-26-2023 Follow-Up [id number] Juan Jose Austin 1940 M Date Provider Department Center 04/26/2023 Khris6-JOSESITO VILLANUEVA INESSA [facility] Family History Problem Relation Age of Onset Heart failure Mother Family Status - Relation Status Age at Mother Level of Service:28123 [place] OFFICE/OUTPATIENT ESTABLISHED MOD MDM 30-39 MIN Reason for Visit and Comments: Follow-up [923876] - Pt is here for PPM F/U Normal [facility] CBC W Auto Differential pane l (Bld)on 04-25-2023 Basophils (Bld) [#/Vol] 0.03 10*3/uL Normal <0.11 [facility] Comment on above: Order Comment: Speci men Type: BLOOD SPECIMENOrdering Facility: [facility] Address: [address] [place] [address] Performed By: #### 5 7021-8 ####[facility] LABCLIA [id number] [place] [address] Basophils/100 WBC (Bld) 0.5 % Normal [facility] Comment on above: Order Comment: Speci men Type: BLOOD SPECIMENOrdering Facility: [facility] Address: [address] [place] [address] Performed By: #### 5 7021-8 ####[facility] LABCLIA [id number] [place] [address] Differential cell count method Nom (Bld) Auto Normal [facility] Comment on above: Order Comment: Speci men Type: BLOOD SPECIMENOrdering Facility: [facility] Address: [address] [place] [address] Performed By: #### 5 7021-8 ####[facility] LABCLIA [id number] [place] [address] Eosinophils (Bld) [#/Vol] 0.31 10*3/uL Normal <0.46 [facility] Comment on above: Order Comment: Speci men Type: BLOOD SPECIMENOrdering Facility: [facility] Address: [address] [place] [address] Performed By: #### 5 7021-8 ####[facility] LABCLIA [id number] [place] [address] Eosinophils/100 WBC (Bld) 4.8 % Normal [facility] Comment on above: Order Comment: Speci men Type: BLOOD SPECIMENOrdering Facility: [facility] Address: [address] [place] [address] Performed By: #### 5 7021-8 ####[facility] LABCLIA [id number] [place] [address] Erythrocyte distribution width (RBC) [Ratio] 15.3 % High 11.5-15.0 [facility] Comment on above: Order Comment: Speci men Type: BLOOD SPECIMENOrdering Facility: [facility] Address: [address] [place] [address] Performed By: #### 5 7021-8 ####[facility] LABIA [id number] [place] [address] Hematocrit (Bld) [Volume fraction] 37.9 % Low 39.0-51.0 [facility] Comment on above: Order Comment: Speci men Type: BLOOD SPECIMENOrdering Facility: [facility] Address: [address] [place] [address] Performed By: #### 5 7021-8 ####[facility] LABIA [id number] [place] [address] Hemoglobin (Bld) [Mass/Vol] 12.6 g/dL Low 13.0-17.0 [facility] Comment on above: Order Comment: Speci men Type: BLOOD SPECIMENOrdering Facility: [facility] Address: [address] [place] [address] Performed By: #### 5 7021-8 ####[facility] LABCLIA [id number] [place] [address] Immature granulocytes (Bld) [#/Vol] 10*3/uL Normal <0.10 [facility] Comment on above: Order Comment: Speci men Type: BLOOD SPECIMENOrdering Facility: [facility] Address: [address] [place] [address] Performed By: #### 5 7021-8 ####[facility] LABCLIA [id number] [place] [address] Immature granulocytes/100 WBC (Bld) 0.2 % Normal [facility] Comment on above: Order Comment: Speci men Type: BLOOD SPECIMENOrdering Facility: [facility] Address: [address] [place] [address] Performed By: #### 5 7021-8 ####[facility] LABCLIA [id number] [place] [address] Lymphocytes (Bld) [#/Vol] 0.73 10*3/uL Low 1.00-4.00 [facility] Comment on above: Order Comment: Speci men Type: BLOOD SPECIMENOrdering Facility: [facility] Address: [address] [place] [address] Performed By: #### 5 7021-8 ####[facility] LABIA [id number] [place] [address] Lymphocytes/100 WBC (Bld) 11.3 % Normal [facility] Comment on above: Order Comment: Speci men Type: BLOOD SPECIMENOrdering Facility: [facility] Address: [address] [place] [address] Performed By: #### 5 7021-8 ####[facility] LABCLIA [id number] [place] [address] MCH (RBC) [Entitic mass] 27.9 pg Normal 26.0-34.0 [facility] Comment on above: Order Comment: Speci men Type: BLOOD SPECIMENOrdering Facility: [facility] Address: [address] [place] [address] Performed By: #### 5 7021-8 ####[facility] LABCLIA [id number] [place] [address] MCHC (RBC) [Mass/Vol] 33.2 g/dL Normal 30.5-36.0 [facility] Comment on above: Order Comment: Speci men Type: BLOOD SPECIMENOrdering Facility: [facility] Address: [address] [place] [address] Performed By: #### 5 7021-8 ####[facility] LABIA [id number] [place] [address] MCV (RBC) [Entitic vol] 83.8 fL Normal 80.0-100.0 [facility] Comment on above: Order Comment: Speci men Type: BLOOD SPECIMENOrdering Facility: [facility] Address: [address] [place] [address] Performed By: #### 5 7021-8 ####[facility] LABIA [id number] [place] [address] Monocytes (Bld) [#/Vol] 0.55 10*3/uL Normal <0.87 [facility] Comment on above: Order Comment: Speci men Type: BLOOD SPECIMENOrdering Facility: [facility] Address: [address] [place] [address] Performed By: #### 5 7021-8 ####[facility] LABIA [id number] [place] [address] Monocytes/100 WBC (Bld) 8.5 % Normal [facility] Comment on above: Order Comment: Speci men Type: BLOOD SPECIMENOrdering Facility: [facility] Address: [address] [place] [address] Performed By: #### 5 7021-8 ####[facility] LABIA [id number] [place] [address] Neutrophils (Bld) [#/Vol] 4.81 10*3/uL Normal 1.45-7.50 [facility] Comment on above: Order Comment: Speci men Type: BLOOD SPECIMENOrdering Facility: [facility] Address: [address] [place] [address] Performed By: #### 5 7021-8 ####[facility] LABCLIA [id number] [place] [address] Neutrophils/100 WBC (Bld) 74.7 % Normal [facility] Comment on above: Order Comment: Speci men Type: BLOOD SPECIMENOrdering Facility: [facility] Address: [address] [place] [address] Performed By: #### 5 7021-8 ####[facility] LABCLIA [id number] [place] [address] Nucleated RBC (Bld) [#/Vol] 10*3/uL Normal <0.01 [facility] Comment on above: Order Comment: Speci men Type: BLOOD SPECIMENOrdering Facility: [facility] Address: [address] [place] [address] Performed By: #### 5 7021-8 ####[facility] LABCLIA [id number] [place] [address] Nucleated RBC/100 WBC (Bld) [Ratio] 0.0 /100 WBC Normal [facility] Comment on above: Order Comment: Speci men Type: BLOOD SPECIMENOrdering Facility: [facility] Address: [address] [place] [address] Performed By: #### 5 7021-8 ####[facility] LABCLIA [id number] [place] [address] Platelet mean volume (Bld) [Entitic vol] 8.9 fL Low 9.0-12.7 [facility] Comment on above: Order Comment: Speci men Type: BLOOD SPECIMENOrdering Facility: [facility] Address: [address] [place] [address] Performed By: #### 5 7021-8 ####[facility] LABCLIA [id number] [place] [address] Platelets (Bld) [#/Vol] 208 10*3/uL Normal 150-400 [facility] Comment on above: Order Comment: Speci men Type: BLOOD SPECIMENOrdering Facility: [facility] Address: [address] [place] [address] Performed By: #### 5 7021-8 ####[facility] LABCLIA [id number] [place] [address] RBC (Bld) [#/Vol] 4.52 10*6/uL Normal 4.20-6.00 [facility] Comment on above: Order Comment: Speci men Type: BLOOD SPECIMENOrdering Facility: [facility] Address: [address] [place] [address] Performed By: #### 5 7021-8 ####[facility] LABIA [id number] [place] [address] WBC (Bld) [#/Vol] 6.44 10*3/uL Normal 3.70-11.00 [facility] Comment on above: Order Comment: Speci men Type: BLOOD SPECIMENOrdering Facility: [facility] Address: [address] [place] [address] Performed By: #### 5 7021-8 ####[facility] LABIA [id number] [place] [address] CNOVSPon 04-25-2023 CNOVSP Normal [facility] Comprehensive metabolic 2000 panelon 04-25-2023 Albumin [Mass/Vol] 4.0 g/dL Normal 3.9-4.9 [facility] Comment on above: Order Comment: Speci men Type: BLOOD SPECIMENOrdering Facility: External Submitter Address: , , Performed By: #### 2 4323-8 ####[facility] LABCLIA [id number] [place] [address] ALP [Catalytic activity/Vol] 75 U/L Normal 38-113 [facility] Comment on above: Order Comment: Speci men Type: BLOOD SPECIMENOrdering Facility: External Submitter Address: , , Performed By: #### 2 4323-8 ####[facility] LABCLIA [id number] [place] [address] ALT [Catalytic activity/Vol] 17 U/L Normal 10-54 [facility] Comment on above: Order Comment: Speci men Type: BLOOD SPECIMENOrdering Facility: External Submitter Address: , , Performed By: #### 2 4323-8 ####[facility] LABCLIA [id number] [place] [address] Anion gap [Moles/Vol] 7 mmol/L Low 9-18 [facility] Comment on above: Order Comment: Speci men Type: BLOOD SPECIMENOrdering Facility: External Submitter Address: , , Performed By: #### 2 4323-8 ####[facility] LABCLIA [id number] [place] [address] AST [Catalytic activity/Vol] 26 U/L Normal 14-40 [facility] Comment on above: Order Comment: Speci men Type: BLOOD SPECIMENOrdering Facility: External Submitter Address: , , Performed By: #### 2 4323-8 ####[facility] LABCLIA [id number] [place] [address] Bilirubin [Mass/Vol] 0.4 mg/dL Normal 0.2-1.3 [facility] Comment on above: Order Comment: Speci men Type: BLOOD SPECIMENOrdering Facility: External Submitter Address: , , Performed By: #### 2 4323-8 ####[facility] LABCLIA [id number] [place] [address] Calcium [Mass/Vol] 8.9 mg/dL Normal 8.5-10.2 [facility] Comment on above: Order Comment: Speci men Type: BLOOD SPECIMENOrdering Facility: External Submitter Address: , , Performed By: #### 2 4323-8 ####[facility] LABCLIA [id number] [place] [address] Chloride [Moles/Vol] 106 mmol/L High 97-105 [facility] Comment on above: Order Comment: Speci men Type: BLOOD SPECIMENOrdering Facility: External Submitter Address: , , Performed By: #### 2 4323-8 ####[facility] LABCLIA [id number] [place] [address] CO2 [Moles/Vol] 26 mmol/L Normal 22-30 [facility] Comment on above: Order Comment: Speci men Type: BLOOD SPECIMENOrdering Facility: External Submitter Address: , , Performed By: #### 2 4323-8 ####[facility] LABCLIA [id number] [place] [address] Creatinine [Mass/Vol] 1.71 mg/dL High 0.73-1.22 [facility] Comment on above: Order Comment: Speci men Type: BLOOD SPECIMENOrdering Facility: External Submitter Address: , , Performed By: #### 2 4323-8 ####[facility] LABCLIA [id number] [place] [address] ESTIMATED GLOMERULAR FILTRATION RATE 39 mL/min/1.73m??? Low >=60 [facility] Comment on above: Order Comment: [...] #### 2 4323-8 ####[facility] LABCLIA [id number] [place] [address] Glucose [Mass/Vol] 111 mg/dL High 74-99 [facility] Comment on above: Order Comment: Farrahi oralia Type: BLOOD SPECIMENOrdering Facility: External Submitter Address: , , Result Comment: The [place] Diabetes Association (ADA) provides guidance for cutoff [...] Standards of Medical Care in Diabetes 2016, [place] [employer]. Diabetes Care. 2016.39(Suppl 1). Performed By: #### 2 4323-8 ####[facility] LABCLIA [id number] [place] [address] Potassium [Moles/Vol] 3.9 mmol/L Normal 3.7-5.1 [facility] Comment on above: Order Comment: Farrahronnie barton Type: BLOOD SPECIMENOrdering Facility: External Submitter Address: , , Performed By: #### 2 4323-8 ####[facility] LABIA [id number] [place] [address] Protein [Mass/Vol] 6.0 g/dL Low 6.3-8.0 [facility] Comment on above: Order Comment: Farrahronnie barton Type: BLOOD SPECIMENOrdering Facility: External Submitter Address: , , Performed By: #### 2 4323-8 ####[facility] LABCLIA [id number] [place] [address] Sodium [Moles/Vol] 139 mmol/L Normal 136-144 [facility] Comment on above: Order Comment: Farrahronnie barton Type: BLOOD SPECIMENOrdering Facility: External Submitter Address: , , Performed By: #### 2 4323-8 ####[facility] LABCLIA [id number] [place] [address] Urea nitrogen [Mass/Vol] 27 mg/dL High 9-24 [facility] Comment on above: Order Comment: Speci men Type: BLOOD SPECIMENOrdering Facility: External Submitter Address: , , Performed By: #### 2 4323-8 ####[facility] LABCLIA [id number] [place] [address] Beverly Chewdai-Ricaon 04-25-20 23 Cortisol [Mass/Vol] 8.8 ug/dL Normal 4.8-19.5 [facility] Comment on above: Order Comment: Speci men Type: BLOOD SPECIMENOrdering Facility: External Submitter Address: , , Result Comment: Prov ided reference range is from 6-10 AM sample collection time.Cortisol Reference Range: 6-10 AM = 4.8-19.5 ug/dL, 4-8 PM = 2.5-11.9 ug/dL Performed By: #### 3 016-3, 2143-6, 3024-7, 3053-6 ####[facility] LABCLIA [id number] [place] [address] [place] HbA1c (Bld)on 04-25-2023 Average glucose Estimated from glycated hemoglobin (Bld) [Mass/Vol] 97 mg/dL Normal [facility] Comment on above: Order Comment: Speci men Type: BLOOD SPECIMENOrdering Facility: [facility] Address: [address] [place] [address] Result Comment: eAG: (Estimated average glucose) is a calculated value from HgbA1c and is provider relations representative of the average blood glucose level in the last 2-3 month period. Performed By: #### 5 5454-3 ####[facility] LABCLIA [id number] [place] [address] [place] HbA1c (Bld) [Mass fraction] 5.0 % Normal 4.3-5.6 [facility] Comment on above: Order Comment: Speci men Type: BLOOD SPECIMENOrdering Facility: [facility] Address: [address] [place] [address] Result Comment: [place] Diabetes Association guidelines indicate that patients with HgbA1c in the range 5.7-6.4% are at increased risk for development of diabetes, and intervention by lifestyle modification may be beneficial. HgbA1c greater or equal to 6.5% is considered diagnostic of diabetes. Performed By: #### 5 5454-3 ####[facility] LABCLIA [id number] [place] [address] [place] T3 SerPl-mCncon 04-25-2023 T3 [Mass/Vol] 99 ng/dL Normal 79-165 [facility] Comment on above: Order Comment: Vero barton Type: BLOOD SPECIMENOrdering Facility: External Submitter Address: , , Performed By: #### 3 016-3, 2143-03, 3024-04, 3053-03 ####[facility] [id number] [address] [place] T4 Free SerPl-mCncon 023 Free T4 [Mass/Vol] 1.1 ng/dL Normal 0.9-1.7 [facility] Comment on above: Order Comment: Vero barton Type: BLOOD SPECIMENOrdering Facility: External Submitter Address: , , Performed By: #### 3 016-3, 2143-03, 3024-04, 3053-03 ####[facility] LABIA [id number] [place] [address] [place] TSH SerPl-aCncon 04-25-2023 TSH Qn 2.800 m[IU]/L Normal 0.270-4.200 [facility] Comment on above: Order Comment: Vero barton Type: BLOOD SPECIMENOrdering Facility: External Submitter Address: , , Performed By: #### 3 016-3, 2143-03, 3024-04, 3053-03 ####[facility] LABIA [id number] [place] [address] [place] CBC W Auto Differential pane l (Bld)on 04-04-2023 Basophils (Bld) [#/Vol] 0.06 10*3/uL Normal <0.11 [facility] Comment on above: Order Comment: Speci men Type: BLOOD SPECIMENOrdering Facility: [facility] Address: [address] [address] Performed By: #### 5 7021-8 ####[facility] LABCLIA [id number] [place] [address] Basophils/100 WBC (Bld) 0.9 % Normal [facility] Comment on above: Order Comment: Speci men Type: BLOOD SPECIMENOrdering Facility: [facility] Address: [address] [place] [address] Performed By: #### 5 7021-8 ####[facility] LABCLIA [id number] [place] [address] Differential cell count method Nom (Bld) Auto Normal [facility] Comment on above: Order Comment: Speci men Type: BLOOD SPECIMENOrdering Facility: [facility] Address: [address] [place] [address] Performed By: #### 5 7021-8 ####[facility] LABCLIA [id number] [place] [address] Eosinophils (Bld) [#/Vol] 0.32 10*3/uL Normal <0.46 [facility] Comment on above: Order Comment: Speci men Type: BLOOD SPECIMENOrdering Facility: [facility] Address: [address] [address] Performed By: #### 5 7021-8 ####[facility] LABCLIA [id number] [place] [address] Eosinophils/100 WBC (Bld) 4.8 % Normal [facility] Comment on above: Order Comment: Speci men Type: BLOOD SPECIMENOrdering Facility: [facility] Address: [address] [address] Performed By: #### 5 7021-8 ####[facility] LABCLIA [id number] [place] [address] Erythrocyte distribution width (RBC) [Ratio] 15.8 % High 11.5-15.0 [facility] Comment on above: Order Comment: Speci men Type: BLOOD SPECIMENOrdering Facility: [facility] Address: [address] [place] [address] Performed By: #### 5 7021-8 ####[facility] LABCLIA [id number] [place] [address] Hematocrit (Bld) [Volume fraction] 38.8 % Low 39.0-51.0 [facility] Comment on above: Order Comment: Speci men Type: BLOOD SPECIMENOrdering Facility: [facility] Address: [address] [place] [address] Performed By: #### 5 7021-8 ####[facility] LABIA [id number] [place] [address] Hemoglobin (Bld) [Mass/Vol] 12.8 g/dL Low 13.0-17.0 [facility] Comment on above: Order Comment: Speci men Type: BLOOD SPECIMENOrdering Facility: [facility] Address: [address] [place] [address] Performed By: #### 5 7021-8 ####[facility] LABIA [id number] [place] [address] Immature granulocytes (Bld) [#/Vol] 0.03 10*3/uL Normal <0.10 [facility] Comment on above: Order Comment: Speci men Type: BLOOD SPECIMENOrdering Facility: [facility] Address: [address] [place] [address] Performed By: #### 5 7021-8 ####[facility] LABIA [id number] [place] [address] Immature granulocytes/100 WBC (Bld) 0.5 % Normal [facility] Comment on above: Order Comment: Speci men Type: BLOOD SPECIMENOrdering Facility: [facility] Address: [address] [place] [address] Performed By: #### 5 7021-8 ####[facility] LABCLIA [id number] [place] [address] Lymphocytes (Bld) [#/Vol] 0.85 10*3/uL Low 1.00-4.00 [facility] Comment on above: Order Comment: Speci men Type: BLOOD SPECIMENOrdering Facility: [facility] Address: [address] [place] [address] Performed By: #### 5 7021-8 ####[facility] LABCLIA [id number] [place] [address] Lymphocytes/100 WBC (Bld) 12.8 % Normal [facility] Comment on above: Order Comment: Speci men Type: BLOOD SPECIMENOrdering Facility: [facility] Address: [address] [place] [address] Performed By: #### 5 7021-8 ####[facility] LABCLIA [id number] [place] [address] MCH (RBC) [Entitic mass] 27.8 pg Normal 26.0-34.0 [facility] Comment on above: Order Comment: Speci men Type: BLOOD SPECIMENOrdering Facility: [facility] Address: [address] [place] [address] Performed By: #### 5 7021-8 ####[facility] LABCLIA [id number] [place] [address] MCHC (RBC) [Mass/Vol] 33.0 g/dL Normal 30.5-36.0 [facility] Comment on above: Order Comment: Speci men Type: BLOOD SPECIMENOrdering Facility: [facility] Address: [address] [place] [address] Performed By: #### 5 7021-8 ####[facility] LABCLIA [id number] [place] [address] MCV (RBC) [Entitic vol] 84.2 fL Normal 80.0-100.0 [facility] Comment on above: Order Comment: Speci men Type: BLOOD SPECIMENOrdering Facility: [facility] Address: [address] [place] [address] Performed By: #### 5 7021-8 ####[facility] LABCLIA [id number] [place] [address] Monocytes (Bld) [#/Vol] 0.48 10*3/uL Normal <0.87 [facility] Comment on above: Order Comment: Speci men Type: BLOOD SPECIMENOrdering Facility: [facility] Address: [address] [place] [address] Performed By: #### 5 7021-8 ####[facility] LABIA [id number] [place] [address] Monocytes/100 WBC (Bld) 7.3 % Normal [facility] Comment on above: Order Comment: Speci men Type: BLOOD SPECIMENOrdering Facility: [facility] Address: [address] [place] [address] Performed By: #### 5 7021-8 ####[facility] LABCLIA [id number] [place] [address] Neutrophils (Bld) [#/Vol] 4.88 10*3/uL Normal 1.45-7.50 [facility] Comment on above: Order Comment: Speci men Type: BLOOD SPECIMENOrdering Facility: [facility] Address: [address] [place] [address] Performed By: #### 5 7021-8 ####[facility] LABIA [id number] [place] [address] Neutrophils/100 WBC (Bld) 73.7 % Normal [facility] Comment on above: Order Comment: Speci men Type: BLOOD SPECIMENOrdering Facility: [facility] Address: [facility] [place] [address] Performed By: #### 5 7021-8 ####[facility] LABCLIA [id number] [place] [address] Nucleated RBC (Bld) [#/Vol] 10*3/uL Normal <0.01 [facility] Comment on above: Order Comment: Speci men Type: BLOOD SPECIMENOrdering Facility: [facility] Address: [address] [address] Performed By: #### 5 7021-8 ####[facility] LABCLIA [id number] [place] [address] Nucleated RBC/100 WBC (Bld) [Ratio] 0.0 /100 WBC Normal [facility] Comment on above: Order Comment: Speci men Type: BLOOD SPECIMENOrdering Facility: [facility] Address: [address] [place] [address] Performed By: #### 5 7021-8 ####[facility] LABIA [id number] [place] [address] Platelet mean volume (Bld) [Entitic vol] 8.8 fL Low 9.0-12.7 [facility] Comment on above: Order Comment: Speci men Type: BLOOD SPECIMENOrdering Facility: [facility] Address: [address] [address] Performed By: #### 5 7021-8 ####[facility] LABCLIA [id number] [place] [address] Platelets (Bld) [#/Vol] 213 10*3/uL Normal 150-400 [facility] Comment on above: Order Comment: Speci men Type: BLOOD SPECIMENOrdering Facility: [facility] Address: [address] [place] [address] Performed By: #### 5 7021-8 ####[facility] LABCLIA [id number] [place] [address] RBC (Bld) [#/Vol] 4.61 10*6/uL Normal 4.20-6.00 [facility] Comment on above: Order Comment: Speci men Type: BLOOD SPECIMENOrdering Facility: [facility] Address: [address] [place] [address] Performed By: #### 5 7021-8 ####[facility] LABCLIA [id number] [place] [address] WBC (Bld) [#/Vol] 6.62 10*3/uL Normal 3.70-11.00 [facility] Comment on above: Order Comment: Speci men Type: BLOOD SPECIMENOrdering Facility: [facility] Address: [address] [place] [address] Performed By: #### 5 7021-8 ####[facility] LABCLIA [id number] [place] [address] CNOVSPon 04-04-2023 CNOVSP Normal [facility] Comprehensive metabolic 2000 panelon 04-04-2023 Albumin [Mass/Vol] 4.4 g/dL Normal 3.9-4.9 [facility] Comment on above: Order Comment: Speci men Type: BLOOD SPECIMENOrdering Facility: [facility] Address: [address] [place] [address] Performed By: #### 2 4323-8 ####[facility] LABCLIA [id number] [place] [address] ALP [Catalytic activity/Vol] 64 U/L Normal 38-113 [facility] Comment on above: Order Comment: Speci men Type: BLOOD SPECIMENOrdering Facility: [facility] Address: [address] [place] [address] Performed By: #### 2 4323-8 ####[facility] LABCLIA [id number] [place] [address] ALT [Catalytic activity/Vol] 13 U/L Normal 10-54 [facility] Comment on above: Order Comment: Speci men Type: BLOOD SPECIMENOrdering Facility: [facility] Address: [address] [address] Performed By: #### 2 4323-8 ####[facility] LABCLIA [id number] [place] [address] Anion gap [Moles/Vol] 10 mmol/L Normal 9-18 [facility] Comment on above: Order Comment: Speci men Type: BLOOD SPECIMENOrdering Facility: [facility] Address: [address] [address] Performed By: #### 2 4323-8 ####[facility] LABCLIA [id number] [place] [address] AST [Catalytic activity/Vol] 23 U/L Normal 14-40 [facility] Comment on above: Order Comment: Speci men Type: BLOOD SPECIMENOrdering Facility: [facility] Address: [address] [place] [address] Performed By: #### 2 4323-8 ####[facility] LABCLIA [id number] [place] [address] Bilirubin [Mass/Vol] 0.5 mg/dL Normal 0.2-1.3 [facility] Comment on above: Order Comment: Speci men Type: BLOOD SPECIMENOrdering Facility: [facility] Address: [address] [address] Performed By: #### 2 4323-8 ####[facility] LABCLIA [id number] [place] [address] Calcium [Mass/Vol] 9.3 mg/dL Normal 8.5-10.2 [facility] Comment on above: Order Comment: Speci men Type: BLOOD SPECIMENOrdering Facility: [facility] Address: [address] [place] [address] Performed By: #### 2 4323-8 ####[facility] LABCLIA [id number] [place] [address] Chloride [Moles/Vol] 104 mmol/L Normal 97-105 [facility] Comment on above: Order Comment: Speci men Type: BLOOD SPECIMENOrdering Facility: [facility] Address: [address] [place] [address] Performed By: #### 2 4323-8 ####[facility] LABCLIA [id number] [place] [address] CO2 [Moles/Vol] 26 mmol/L Normal 22-30 [facility] Comment on above: Order Comment: Speci men Type: BLOOD SPECIMENOrdering Facility: [facility] Address: [address] [place] [address] Performed By: #### 2 4323-8 ####[facility] LABCLIA [id number] [place] [address] Creatinine [Mass/Vol] 2.05 mg/dL High 0.73-1.22 [facility] Comment on above: Order Comment: Speci men Type: BLOOD SPECIMENOrdering Facility: [facility] Address: [address] [place] [address] Performed By: #### 2 4323-8 ####[facility] LABCLIA [id number] [place] [address] ESTIMATED GLOMERULAR FILTRATION RATE 32 mL/min/1.73m??? Low >=60 [facility] Comment on above: Order Comment: Speci men Type: BLOOD SPECIMENOrdering Facility: [facility] Address: [address] [place] [address] Result Comment: Viviana mated Glomerular Filtration Rate [...] #### 2 4323-8 ####[facility] LABCLIA [id number] [place] [address] Glucose [Mass/Vol] 127 mg/dL High 74-99 [facility] Comment on above: Order Comment: Speci men Type: BLOOD SPECIMENOrdering Facility: [facility] Address: [address] [place] [address] Result Comment: The [place] [employer] (ADA) provides guidance for cutoff [...] Standards of Medical Care in Diabetes 2016, [place] [employer]. Diabetes Care. 2016.39(Suppl 1). Performed By: #### 2 4323-8 ####[facility] LABCLIA [id number] [place] [address] Potassium [Moles/Vol] 3.9 mmol/L Normal 3.7-5.1 [facility] Comment on above: Order Comment: Speci men Type: BLOOD SPECIMENOrdering Facility: [facility] Address: [address] [place] [address] Performed By: #### 2 4323-8 ####[facility] LABCLIA [id number] [place] [address] Protein [Mass/Vol] 6.3 g/dL Normal 6.3-8.0 [facility] Comment on above: Order Comment: Speci men Type: BLOOD SPECIMENOrdering Facility: [facility] Address: [address] [place] [address] Performed By: #### 2 4323-8 ####[facility] LABCLIA [id number] [place] [address] Sodium [Moles/Vol] 140 mmol/L Normal 136-144 [facility] Comment on above: Order Comment: Speci men Type: BLOOD SPECIMENOrdering Facility: [facility] Address: [address] [address] Performed By: #### 2 4323-8 ####[facility] LABCLIA [id number] [place] [address] Urea nitrogen [Mass/Vol] 26 mg/dL High 9-24 [facility] Comment on above: Order Comment: Speci men Type: BLOOD SPECIMENOrdering Facility: [facility] Address: [address] [address] Performed By: #### 2 4323-8 ####[facility] LABCLIA [id number] [place] [address] Cortshaye Nainal-Ricaon 04-04-20 Cortisol [Mass/Vol] 9.9 ug/dL Normal 4.8-19.5 [facility] Comment on above: Order Comment: Speci men Type: BLOOD SPECIMENOrdering Facility: [facility] Address: [address] [place] [address] Result Comment: Prov ided reference range is from 6-10 AM sample collection time.Cortisol Reference Range: 6-10 AM = 4.8-19.5 ug/dL, 4-8 PM = 2.5-11.9 ug/dL Performed By: #### 2 143-6, 3016-3 ####[facility] LABCLIA [id number] [facility] [id number] [address] [place] HbA1c (Bld)on 04-04-2023 Average glucose Estimated from glycated hemoglobin (Bld) [Mass/Vol] 100 mg/dL Normal [facility] Comment on above: Order Comment: Speci men Type: BLOOD SPECIMENOrdering Facility: [facility] Address: [address] [place] [address] Result Comment: eAG: (Estimated average glucose) is a calculated value from HgbA1c and is provider relations representative of the average blood glucose level in the last 2-3 month period. Performed By: #### 5 5454-3 ####[facility] LABCLIA [id number] [address] STATES OF [facility] HbA1c (Bld) [Mass fraction] 5.1 % Normal 4.3-5.6 [facility] Comment on above: Order Comment: Speci men Type: BLOOD SPECIMENOrdering Facility: [facility] Address: [address] [address] Result Comment: Amer [place] Diabetes Association guidelines indicate that patients with HgbA1c in the range 5.7-6.4% are at increased risk for development of diabetes, and intervention by lifestyle modification may be beneficial. HgbA1c greater or equal to 6.5% is considered diagnostic of diabetes. Performed By: #### 5 5454-3 ####[facility] LABCLIA [id number] [address] OF [place] TSH SerPl-aCncon 04-04-2023 TSH Qn 2.620 m[IU]/L Normal 0.270-4.200 [facility] Comment on above: Order Comment: Speci men Type: BLOOD SPECIMENOrdering Facility: [facility] Address: [address] [place] [address] Performed By: #### 2 143-6, 3016-3 ####[facility] LABCLIA [id number] [address] [place] EDNURSon 03-27-2023 EDNURS Mode of arrival [facility]squ ad #[facility] walk [facility] Chief complaint(s): Dizziness Arrival Note (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 Pt got up from the dinner table to put his plate in the sink when he felt dizzy. When pt sat down, it resolved. He got up again with the same dizziness. It went away as he was getting in the vehicle to go to the ER in [place]. Pt denies any other symptoms since. Orthostatics were negative at [facility]. GCS 15 Normal [facility] EDPROVon 03-27-2023 EDPROV HPI Chief Complaint Patient [...] was evaluated [facility] where full cardiac work-up was performed. Patient was noted to have mild elevation of his troponin. No changes on EKG. Patient was to have pacemaker interrogated by [employer] however provider relations representative was not available at that time [...] 0334 Review of patient's medical records from [place] shows EKG which demonstrates left bundle branch [...] arrhythmia or bradycardia, dehydration, or orthostatic [NF] 3437 spoke to [employer] who interrogated device. 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 No signs of any arrhythmias or bradycardic episodes. Device working appropriately. At this time patient's in no acute distress says he feels fine. Troponin was repeated as initial troponin was noted to be mildly elevated. Repeat noted to be 0.07. 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 Roach. Reviewed patient's initial presentation (more content not included)... Normal [facility] Office Visiton 03-27-2023 Follow-up visit [id number] Juan Jose Austin 1940 M Date Provider Department Center 03/27/2023 [id number] QUILES CARD [facility] Family History Problem Relation Age of Onset Heart failure Mother Family Status - Relation Status Age at Mother Level of Service:54797 [place] POSTOP FOLLOW UP VISIT RELATED TO ORIGINAL PX Normal [facility] TROPONIN Ion 03-27-2023 Troponin I.cardiac [Mass/Vol] 0.07 ng/mL High 0.00-0.04 [facility] Comment on above: Performed By: #### L [id number] #### [facility] ([facility]ER) [address] [place] [address] 30on 03-19-2023 30 The patient is Moderately [...] and behaviors that affect risk of falls [place] fall precautions as indicated by assessment Educate [...] or improved Outcome: Progressing Flowsheets (Taken 03/19/2023 0937) Care Plan - Patient's Chronic Conditions and [...] and prevent overall improvement and discharge Normal [facility] 30 Problem: Pain - Adul t Goal: [...] make progress toward the following goals. Normal [facility] BASIC METABOLIC PANELon 06-0 Anion gap [Moles/Vol] 9 mmol/L Normal 7-20 [facility] Comment on above: Performed By: #### L [id number] #### [facility] (BEAKER) [address] [place] [address] Calcium [Mass/Vol] 8.7 mg/dL Normal 8.6-10.3 [facility] Comment on above: Performed By: #### L [id number] #### [facility] (BEAKER) [address] [facility] [place] [address] Chloride [Moles/Vol] 111 mmol/L High 98-107 [facility] Comment on above: Performed By: #### L [id number] #### [facility] (BEAKER) [address] [place] [address] CO2 [Moles/Vol] 24 mmol/L Normal 21-31 [facility] Comment on above: Performed By: #### L [id number] #### [facility] (BEAKER) [address] [place] [address] Creatinine [Mass/Vol] 1.95 mg/dL High 0.70-1.30 [facility] Comment on above: Performed By: #### L [id number] #### [facility] ([facility]) [address] [place] [address] GLOMERULAR FILTRATION RATE ML/MIN/1.73 SQ M.PREDICTED 33.5 mL/min/1.73m*2 Low >60.0 [facility] Comment on above: Result Comment: The [facility]???s estimated glomerular filtration rate (eGFR) will no [...] individuals. Performed By: #### L [id number] #### [facility] ([facility]) [address] [place] [address] Glucose [Mass/Vol] 111 mg/dL High 70-100 [facility] Comment on above: Performed By: #### L [id number] #### [facility] ([facility]) [address] [place] [address] Potassium [Moles/Vol] 4.2 mmol/L Normal 3.5-5.1 [facility] Comment on above: Performed By: #### L [id number] #### [facility] ([facility]) [address] [place] [address] Sodium [Moles/Vol] 140 mmol/L Normal 136-145 [facility] Comment on above: Performed By: #### L [id number] #### [facility] [address] [place] [address] Urea nitrogen [Mass/Vol] 36 mg/dL High 7-25 [facility] Comment on above: Performed By: #### L [id number] #### [facility] ([facility]) [address] [place] [address] UREA NITROGEN/CREATININE (MASS RATIO) IN SER/PLAS 18.5 Normal [facility] Comment on above: Performed By: #### L [id number] #### [facility] ([facility]) [address] [place] [address] CBCon 03-19-2023 Erythrocyte distribution width (RBC) [Ratio] 14.8 % Normal 11.5-15.0 [facility] Comment on above: Performed By: #### L [id number] #### [facility] ([facility]) [address] [place] [address] ERYTHROCYTE MEAN CORPUSCULAR HEMOGLOBIN CONCENTRATION (G/DL) BY AUTOMATED 33.9 g/dL Normal 32.0-35.0 [facility] Comment on above: Performed By: #### L [id number] #### [facility] ([facility]) [address] [place] [address] Hematocrit (Bld) [Volume fraction] 34.8 % Low 39.0-55.0 [facility] Comment on above: Performed By: #### L [id number] #### [facility] ([facility]) [address] [place] [address] Hemoglobin (Bld) [Mass/Vol] 11.8 g/dL Low 13.0-17.0 [facility] Comment on above: Performed By: #### L [id number] #### [facility] ([facility]) [address] [facility] [place] [address] MCH (RBC) [Entitic mass] 27.9 pg Normal 27.0-33.0 [facility] Comment on above: Performed By: #### L [id number] #### [facility] ([facility]) [address] [place] [address] MCV (RBC) [Entitic vol] 82.3 fL Normal 82.0-98.0 [facility] Comment on above: Performed By: #### L [id number] #### [facility] [address] [place] [address] PLATELETS (10*3/UL) IN BLOOD AUTOMATED COUNT 180 10*3/uL Normal 150-400 [facility] Comment on above: Performed By: #### L [id number] #### [facility] ([facility]) [address] [place], [place] [address] RBC (Bld) [#/Vol] 4.23 10*6/uL Normal 4.20-5.[address] [facility] Comment on above: Performed By: #### L [id number] #### [facility] ([facility]) [address] [place], [place] [address] WBC (Bld) [#/Vol] 6.85 10*3/uL Normal 4.00-10.[address] [facility] Comment on above: Performed By: #### L [id number] #### [facility] ([facility]) [address] [place], [place] [address] NURSNOTEon 03-19-2023 NURSNOTE Pt discharged home with junior by car. [facility] 30on 03-18-2023 30 Daily Case Managemen [...] Reason for OT? Answer: weakness 03/18/23 1108 [facility] 30 The patient is Moderately Stable - Low risk of patient condition declining or worsening The patient's goals for the shift include comfort and rest The clinical goals for the shift include monitor vitals [facility] 30 Problem: Pain - Adul t [...] to make progress toward the following goals. [facility] HP 03-18-2023 HPI: Juan Jose Austin is a [...] Value Ventricular Rate 39 Atrial Rate 39 WA Interval 342 QRS DURATION 156 QT Interval 504 QTC CALCULATION(BAZETT) 405 P Wittenberg 17 R-Wittenberg -84 T Wave [place] 10 Impression Marked sinus bradycardia with 1st degree A-V block Left axis deviation Right bundle branch block Inferior infarct , age undetermined Anterior infarct , age undetermined Abnormal ECG No previous ECGs (more content not included)... Normal [facility] 30on 03-17-2023 30 The patient is Moderately Stable - Low risk of patient condition declining or worsening The patient's goals for the shift include Comfort The clinical goals for the shift include VSS Normal [facility] 30 The patient is Moderately Stable - Low risk of patient condition declining or worsening The patient's goals for the shift include Comfort The clinical goals for the shift include VSS Normal [facility] APTTon 03-17-2023 ACTIVATED PARTIAL THROMBOPLASTIN TIME IN PPP BY COAGULATION ASSAY 26.6 Seconds Normal 25.0-35.0 [facility] Comment on above: Result Comment: Clin ical significance of the APTT is questionable in the presence of heparin. Performed By: #### L [id number] ####[facility] ([facility])[address] [place] [address] B-TYPE NATRIURETIC PEPTIDEon 03-17-2023 Natriuretic peptide B (Bld) [Mass/Vol] 484 pg/mL High 0-100 [facility] Comment on above: Performed By: #### L [id number] ####[facility] ([facility])[address] [place] [address] CBC WITH AUTO DIFFERENTIALon 03-17-2023 Basophils (Bld) [#/Vol] 0.03 10*3/uL Normal 0.00-0.20 [facility] Comment on above: Performed By: #### L [id number] ####[facility] ([facility])[address] [place] [address] Basophils/100 WBC (Bld) 0.6 % Normal 0.0-1.0 [facility] Comment on above: Performed By: #### L [id number] ####[facility] ([facility])[address] [place] [address] Eosinophils (Bld) [#/Vol] 0.13 10*3/uL Normal 0.00-0.50 [facility] Comment on above: Performed By: #### L [id number] ####[facility] (BEAKER)[address] [place] [address] Eosinophils/100 WBC (Bld) 2.6 % Normal 0.0-6.0 [facility] Comment on above: Performed By: #### L [id number] ####[facility] ([facility] [place] [address] Erythrocyte distribution width (RBC) [Ratio] 14.9 % Normal 11.5-15.0 [facility] Comment on above: Performed By: #### L [id number] ####[facility] ([facility] [place] [address] ERYTHROCYTE MEAN CORPUSCULAR HEMOGLOBIN CONCENTRATION (G/DL) BY AUTOMATED 32.4 g/dL Normal 32.0-35.0 [facility] Comment on above: Performed By: #### L [id number] ####[facility] ([facility] [place] [address] Hematocrit (Bld) [Volume fraction] 36.4 % Low 39.0-55.0 [facility] Comment on above: Performed By: #### L [id number] ####[facility] (BEAKER)[address] [place] [address] Hemoglobin (Bld) [Mass/Vol] 11.8 g/dL Low 13.0-17.0 [facility] Comment on above: Performed By: #### L [id number] ####[facility] (BEAKER)[address] [place] [address] Immature granulocytes (Bld) [#/Vol] 0.02 10*3/uL Normal 0.00-0.20 [facility] Comment on above: Performed By: #### L [id number] ####[facility] (BEAKER)[address] [place] [address] Immature granulocytes/100 WBC (Bld) 0.4 % Normal 0.0-1.0 [facility] Comment on above: Performed By: #### L [id number] ####[facility] (BEAKER)[address] [place] [address] Lymphocytes (Bld) [#/Vol] 0.72 10*3/uL Low 1.20-4.00 [facility] Comment on above: Performed By: #### L [id number] ####[facility] (BEAKER)[address] [place] [address] Lymphocytes/100 WBC (Bld) 14.6 % Low 20.0-45.0 [facility] Comment on above: Performed By: #### L [id number] ####[facility] (BEAKER)[address] [place] [address] MCH (RBC) [Entitic mass] 27.3 pg Normal 27.0-33.0 [facility] Comment on above: Performed By: #### L [id number] ####[facility] (BEAKER)[address] [place] [address] MCV (RBC) [Entitic vol] 84.1 fL Normal 82.0-98.0 [facility] Comment on above: Performed By: #### L [id number] ####[facility] (BEAKER)[address] [place] [address] Monocytes (Bld) [#/Vol] 0.39 10*3/uL Normal 0.10-1.00 [facility] Comment on above: Performed By: #### L [id number] ####[facility] (BEAKER)[address] [place] [address] Monocytes/100 WBC (Bld) 7.9 % Normal 5.0-12.0 [facility] Comment on above: Performed By: #### L [id number] ####[facility] (BEAKER)[address] [place] [address] Neutrophils (Bld) [#/Vol] 3.65 10*3/uL Normal 1.60-7.60 [facility] Comment on above: Performed By: #### L [id number] ####[facility] (BEAKER)[address] [place] [address] Neutrophils/100 WBC (Bld) 73.9 % High 40.0-72.0 [facility] Comment on above: Performed By: #### L [id number] ####[facility] ([facility])[address] [place] [address] NRBC (PER 100 WBCS) BY AUTOMATED COUNT 0.0 % Normal 0 [facility] Comment on above: Performed By: #### L [id number] ####[facility] ([facility])[address] [place] [address] PLATELETS (10*3/UL) IN BLOOD AUTOMATED COUNT 172 10*3/uL Normal 150-400 [facility] Comment on above: Performed By: #### L [id number] ####[facility] ([facility])[address] [place] [address] RBC (Bld) [#/Vol] 4.33 10*6/uL Normal 4.20-5.[address] [facility] Comment on above: Performed By: #### L [id number] ####[facility] ([facility])[address] [place] [address] WBC (Bld) [#/Vol] 4.94 10*3/uL Normal 4.00-10.[address] [facility] Comment on above: Performed By: #### L [id number] ####[facility] ([facility])[address] [place] [address] COMPREHENSIVE METABOLIC PANE Taj 03-17-2023 Albumin [Mass/Vol] 4.2 g/dL Normal 3.5-5.7 [facility] Comment on above: Performed By: #### L [id number] #### [facility] ([facility]) [address] [place] [address] ALP [Catalytic activity/Vol] 61 U/L Normal 34-104 [facility] Comment on above: Performed By: #### L [id number] #### [facility] ([facility]) [address] [place] [address] ALT [Catalytic activity/Vol] 14 U/L Normal 7-52 [facility] Comment on above: Performed By: #### L [id number] #### [facility] ([facility] [address] [place] [place] [address] Anion gap [Moles/Vol] 14 mmol/L Normal 7-20 [facility] Comment on above: Performed By: #### L [id number] #### [facility] ([facility]) [address] [place] [address] AST [Catalytic activity/Vol] 17 U/L Normal 13-39 [facility] Comment on above: Performed By: #### L [id number] #### [facility] ([facility]) [address] [place] [address] Bilirubin [Mass/Vol] 0.6 mg/dL Normal 0.3-1.0 [facility] Comment on above: Performed By: #### L [id number] #### [facility] ([facility]) [address] [place] [address] Calcium [Mass/Vol] 9.0 mg/dL Normal 8.6-10.3 [facility] Comment on above: Performed By: #### L [id number] #### [facility] ([facility] [address] [place] [address] Chloride [Moles/Vol] 108 mmol/L High 98-107 [facility] Comment on above: Performed By: #### L [id number] #### [facility] ([facility]) [address] [place] [address] CO2 [Moles/Vol] 20 mmol/L Low 21-31 [facility] Comment on above: Performed By: #### L [id number] #### [facility] ([facility] [address] [place] [address] Creatinine [Mass/Vol] 2.26 mg/dL High 0.70-1.30 [facility] Comment on above: Performed By: #### L [id number] #### [facility] ([facility] [address] [place] [address] GLOMERULAR FILTRATION RATE ML/MIN/1.73 SQ M.PREDICTED 28.1 mL/min/1.73m*2 Low >60.0 [facility] Comment on above: Result Comment: The [facility]???s estimated glomerular filtration rate (eGFR) will no [...] individuals. Performed By: #### L [id number] #### [facility] ([facility]) [address] [place] [address] Glucose [Mass/Vol] 158 mg/dL High 70-100 [facility] Comment on above: Performed By: #### L [id number] #### [facility] ([facility]) [address] [place] [place] [address] Potassium [Moles/Vol] 4.2 mmol/L Normal 3.5-5.1 [facility] Comment on above: Performed By: #### L [id number] #### [facility] ([facility]) [address] [place] [address] Protein [Mass/Vol] 6.3 g/dL Normal 6.0-8.3 [facility] Comment on above: Performed By: #### L [id number] #### [facility] [address] [place] [address] Sodium [Moles/Vol] 138 mmol/L Normal 136-145 [facility] Comment on above: Performed By: #### L [id number] #### [facility] ([facility]) [address] [place] [address] Urea nitrogen [Mass/Vol] 42 mg/dL High 7-25 [facility] Comment on above: Performed By: #### L [id number] #### [facility] [address] [place] [address] UREA NITROGEN/CREATININE (MASS RATIO) IN SER/PLAS 18.6 Normal [facility] Comment on above: Performed By: #### L [id number] #### [facility] ([facility] [address] [place] [address] Albumin [Mass/Vol] 3.8 g/dL Normal 3.5-5.7 [facility] Comment on above: Performed By: #### L [id number] #### [facility] ([facility]) [address] [place] [address] ALP [Catalytic activity/Vol] 58 U/L Normal 34-104 [facility] Comment on above: Performed By: #### L [id number] #### [facility] ([facility]) [address] [place] [address] ALT [Catalytic activity/Vol] 12 U/L Normal 7-52 [facility] Comment on above: Performed By: #### L [id number] #### [facility] ([facility]) [address] [place] [address] Anion gap [Moles/Vol] 10 mmol/L Normal 7-20 [facility] [facility] Comment on above: Performed By: #### L [id number] #### [facility] ([facility]) [address] [place] [address] AST [Catalytic activity/Vol] 15 U/L Normal 13-39 [facility] Comment on above: Performed By: #### L [id number] #### [facility] ([facility]) [address] [place] [address] Bilirubin [Mass/Vol] 0.4 mg/dL Normal 0.3-1.0 [facility] Comment on above: Performed By: #### L [id number] #### [facility] ([facility]) [address] [place] [address] Calcium [Mass/Vol] 8.7 mg/dL Normal 8.6-10.3 [facility] Comment on above: Performed By: #### L [id number] #### [facility] ([facility] [address] [place] [address] Chloride [Moles/Vol] 110 mmol/L High 98-107 [facility] Comment on above: Performed By: #### L [id number] #### [facility] ([facility]) [address] [place] [address] CO2 [Moles/Vol] 24 mmol/L Normal 21-31 [facility] Comment on above: Performed By: #### L [id number] #### [facility] ([facility]) [address] [place] [address] Creatinine [Mass/Vol] 2.26 mg/dL High 0.70-1.30 [facility] Comment on above: Performed By: #### L [id number] #### [facility] ([facility]) [address] [place] [address] GLOMERULAR FILTRATION RATE ML/MIN/1.73 SQ M.PREDICTED 28.1 mL/min/1.73m*2 Low >60.0 [facility] Comment on above: Result Comment: The [facility]???s estimated glomerular filtration rate (eGFR) will no [...] individuals. Performed By: #### L [id number] #### [facility] [address] [place] [address] Glucose [Mass/Vol] 110 mg/dL High 70-100 [facility] Comment on above: Performed By: #### L [id number] #### [facility] ([facility] [address] [place] [address] Potassium [Moles/Vol] 4.3 mmol/L Normal 3.5-5.1 [facility] Comment on above: Performed By: #### L [id number] #### [facility] ([facility]) [address] [place] [address] Protein [Mass/Vol] 5.4 g/dL Low 6.0-8.3 [facility] Comment on above: Performed By: #### L [id number] #### [facility] ([facility]) [address] [place] [address] Sodium [Moles/Vol] 140 mmol/L Normal 136-145 [facility] Comment on above: Performed By: #### L [id number] #### [facility] ([facility]) [address] [place] [address] Urea nitrogen [Mass/Vol] 40 mg/dL High 7-25 [facility] Comment on above: Performed By: #### L [id number] #### [facility] ([facility]) [address] [place] [address] UREA NITROGEN/CREATININE (MASS RATIO) IN SER/PLAS 17.7 Normal [facility] Comment on above: Performed By: #### L [id number] #### [facility] ([facility]) [address] [place] [address] CONSULTon 03-17-2023 CONSULT -- Attestation signed by [...] ???C (97 (more content not included)... Normal [facility] HEMOGLOBIN A1Con 03-17-2023 Glucose [Mass/Vol] 100 mg/dL Normal [facility] Comment on above: Performed By: #### L [id number] #### [facility] ([facility]) [address] [place] [address] HbA1c (Bld) [Mass fraction] 5.1 % Normal 4.0-6.0 [facility] Comment on above: Performed By: #### L [id number] #### [facility] ([facility]) [address] [place] [address] LACTIC ACID WITH 4 HOUR REFL EXon 03-17-2023 LACTATE (MMOL/L) IN SER/PLAS 0.7 mmol/L Normal 0.5-2.2 [facility] Comment on above: Performed By: #### L [id number] #### [facility] ([facility]) [address] [place] [address] LIPID PANELon 03-17-2023 CHOL/HDL 3.1 mg/dL Normal [facility] Comment on above: Performed By: #### L [id number] #### [facility] ([facility]) [address] [place] [address] Cholesterol [Mass/Vol] 124 mg/dL Normal 120-200 [facility] Comment on above: Performed By: #### L [id number] #### [facility] ([facility]) [address] [place] [address] Magnesium [Mass/Vol] 138 mg/dL Normal 40-149 [facility] Comment on above: Result Comment: TRIG LYCERIDE REFERENCE RANGE: 20 YEARS AND OLDER CARDIOVASCULAR RISK LESS THAN 150 mg/dL LOW RISK 150 TO 199 mg/dL BORDERLINE RISK 200 mg/dL AND GREATER HIGH RISK Performed By: #### L [id number] #### [facility] ([facility]) [address] [place] [address] Magnesium [Mass/Vol] 56 mg/dL Normal 0-160 [facility] Comment on above: Performed By: #### L [id number] #### [facility] ([facility]) [address] [place] [address] Magnesium [Mass/Vol] 40 mg/dL Normal 23-92 [facility] Comment on above: Performed By: #### L [id number] #### [facility] ([facility]) [address] [place] [address] NON HDL CHOL. (LDL+VLDL) 84 Normal [facility] Comment on above: Performed By: #### L [id number] #### [facility] ([facility]) [address] [place] [address] TOTAL VLDL-C 28 mg/dL Normal 0-40 [facility] Comment on above: Performed By: #### L [id number] #### [facility] ([facility]) [address] [place] [address] MAGNESIUMon 03-17-2023 Magnesium [Mass/Vol] 1.7 mg/dL Low 1.9-2.7 [facility] Comment on above: Performed By: #### L [id number] #### [facility] ([facility]) [address] [place] [address] PHOSPHORUSon 03-17-2023 Magnesium [Mass/Vol] 3.7 mg/dL Normal 2.5-5.0 [facility] Comment on above: Performed By: #### L [id number] #### [facility] ([facility]) [address] [place] [address] PROTIME-INRon 03-17-2023 INR IN PPP BY COAGULATION ASSAY 1.07 Normal 0.90-1.10 [facility] Comment on above: Result Comment: ACCC P [...] 1995;[id number]. Performed By: #### L [id number] #### [facility] ([facility]) [address] [place] [address] PROTHROMBIN TIME (PT) IN PPP BY COAGULATION ASSAY 13.9 Seconds Normal 12.3-14.8 [facility] Comment on above: Performed By: #### L [id number] #### [facility] ([facility]) [address] [place] [address] TROPONIN Ion 03-17-2023 Troponin I.cardiac [Mass/Vol] 0.06 ng/mL High 0.00-0.04 [facility] Comment on above: Performed By: #### L [id number] #### [facility] [address] [place] [address] Troponin I.cardiac [Mass/Vol] 0.06 ng/mL High 0.00-0.04 [facility] Comment on above: Performed By: #### L [id number] #### [facility] ([facility] [address] [place] [address] Troponin I.cardiac [Mass/Vol] 0.05 ng/mL High 0.00-0.04 [facility] Comment on above: Performed By: #### L [id number] #### [facility] ([facility]) [address] [place] [address] TSH3 REFLEX TO FT4on 023 THYROTROPIN (MIU/L) IN SER/PLAS BY DETECTION LIMIT <= 0.05 MIU/L 2.52 mIU/L Normal 0.34-5.60 [facility] Comment on above: Performed By: #### L [id number] #### [facility] ([facility]) [address] [facility] [place] [address] Office Visiton 03-15-2023 Follow-up visit [id number] Juan Jose Austin 1940 M Date Provider Department Center 03/15/2023 JONATHAN BERKOWITZ CARD [facility] Family History Problem Relation Age of Onset Heart failure Mother Family Status - Relation Status Age at Mother Level of Service:[address] [place] OFFICE/OUTPATIENT ESTABLISHED MOD MDM 30-39 MIN Normal [facility] BNPon 03-10-2023 Natriuretic peptide B (Bld) [Mass/Vol] 1490.0 pg/mL Normal <=1,800.0 [facility] Comment on above: Performed By: #### C K, HSTROPN, CMP, BNP #### [facility] [address] [place] [address] Dr. Tan Oliveros CBC AUTO DIFFon 03-10-2023 BASO # 0.1 103/ul Normal 0.0-0.1 [facility] Comment on above: Performed By: #### C K, HSTROPN, CMP, BNP #### [facility] [address] [address] [address] Tan Oliveros Basophils/100 WBC (Bld) 0.9 % Normal 0.2-2.0 [facility] Comment on above: Performed By: #### C K, HSTROPN, CMP, BNP #### [facility] [address] [address] [address] Tan Oliveros EO # 0.1 103/ul Normal 0.0-0.7 [facility] Comment on above: Performed By: #### C K, HSTROPN, CMP, BNP #### [facility] [address] [address] [address] Tan Oliveros Eosinophils/100 WBC (Bld) 1.6 % Normal 0.9-7.0 [facility] Comment on above: Performed By: #### C K, HSTROPN, CMP, BNP #### [facility] [address] [place] [address] Dr. Tan Oliveros Erythrocyte distribution width (RBC) [Ratio] 14.7 % Normal 11.0-15.0 [facility] Comment on above: Performed By: #### C K, HSTROPN, CMP, BNP #### [facility] [address] [place] [address] Dr. Tan Oliveros Hematocrit (Bld) [Volume fraction] 38.9 % Critically low 42.0-54.0 [facility] Comment on above: Performed By: #### C K, HSTROPN, CMP, BNP #### [facility] [address] [place] [address] Dr. Tan Oliveros Hemoglobin (Bld) [Mass/Vol] 12.8 g/dL Critically low 14.0-18.0 [facility] Comment on above: Performed By: #### C K, HSTROPN, CMP, BNP #### [facility] [address] [place] [address] Dr. Tan Oliveros IG # 0.02 10e3/ul Normal 0.00-0.03 [facility] Comment on above: Performed By: #### C K, HSTROPN, CMP, BNP #### [facility] [address] [place] [address] Dr. Tan Oliveros IG % 0.3 % Normal 0.0-0.5 [facility] Comment on above: Performed By: #### C K, HSTROPN, CMP, BNP #### [facility] [address] [place] [address] Dr. Tan Oliveros LYMPH # 0.7 103/ul Critically low 1.2-3.[address] [facility] Comment on above: Performed By: #### C K, HSTROPN, CMP, BNP #### [facility] [address] [place] [address] Dr. Tan Oliveros Lymphocytes/100 WBC (Bld) 10.4 % Critically low 20.5-60.0 [facility] Comment on above: Performed By: #### C K, HSTROPN, CMP, BNP #### [facility] [address] [place] [address] Dr. Tan Oliveros MANUAL DIFF REQ NO Normal [facility] Comment on above: Performed By: #### C K, HSTROPN, CMP, BNP #### [facility] [address] [place] [address] Dr. Tan Oliveros MCH (RBC) [Entitic mass] 27.2 pg Normal 25.9-34.0 [facility] Comment on above: Performed By: #### C K, HSTROPN, CMP, BNP #### [facility] [address] [place] [address] Dr. Tan Oliveros MCHC (RBC) [Mass/Vol] 32.9 g/dL Normal 29.9-35.2 [facility] Comment on above: Performed By: #### C K, HSTROPN, CMP, BNP #### [facility] [address] [place] [address] Dr. Tan Oliveros MCV (RBC) [Entitic vol] 82.8 fL Normal 80.0-94.0 [facility] Comment on above: Performed By: #### C K, HSTROPN, CMP, BNP #### [facility] [address] [place] [address] Dr. Tan Oliveros MONO # 0.4 103/ul Normal 0.3-0.8 [facility] Comment on above: Performed By: #### C K, HSTROPN, CMP, BNP #### [facility] [address] [place] [address] Dr. Tan Oliveros Monocytes/100 WBC (Bld) 5.8 % Normal 1.7-12.0 [facility] Comment on above: Performed By: #### C K, HSTROPN, CMP, BNP #### [facility] [address] [address] [address] Tan Oliveros NEUT # 5.2 103/ul Normal 1.4-6.5 [facility] Comment on above: Performed By: #### C K, HSTROPN, CMP, BNP #### [facility] [address] [address] [address] Tan Oliveros Neutrophils/100 WBC (Bld) 81.0 % Critically high 43.0-75.0 [facility] Comment on above: Performed By: #### C K, HSTROPN, CMP, BNP #### [facility] [address] [place] [address] Dr. Tan Oliveros Platelet mean volume (Bld) [Entitic vol] 9.9 fL Normal 9.5-13.5 [facility] Comment on above: Performed By: #### C K, HSTROPN, CMP, BNP #### [facility] [address] [place] [address] Dr. Tan Oliveros PLT 198 103/ul Normal 150-450 [facility] Comment on above: Performed By: #### C K, HSTROPN, CMP, BNP #### [facility] [address] [place] [address] Dr. Tan Oliveros RBC 4.70 106/ul Normal 4.70-6.10 [facility] Comment on above: Performed By: #### C K, HSTROPN, CMP, BNP #### [facility] [address] [place] [address] Dr. Tan Oliveros WBC 6.4 103/ul Normal 4.0-11.0 [facility] Comment on above: Performed By: #### C K, HSTROPN, CMP, BNP #### [facility] [address] [place] [address] Dr. Tan Oliveros CPKon 03-10-2023 CK [Catalytic activity/Vol] 152 U/L Normal 39-308 [facility] Comment on above: Performed By: #### C K, HSTROPN, CMP, BNP #### [facility] [address] [place] [address] Dr. Tan Oliveros PROF 14(COMP METB)on 023 Albumin [Mass/Vol] 3.5 g/dL Normal 3.4-5.0 [facility] Comment on above: Performed By: #### C K, HSTROPN, CMP, BNP #### [facility] [address] [place] [address] Dr. Tan Oliveros Albumin/Globulin [Mass ratio] 1.2 {ratio} Normal [facility] Comment on above: Performed By: #### C K, HSTROPN, CMP, BNP #### [facility] [address] [place] [address] Dr. Tan Oliveros ALP [Catalytic activity/Vol] 69 U/L Normal 46-116 [facility] Comment on above: Performed By: #### C K, HSTROPN, CMP, BNP #### [facility] [address] [place] [address] Dr. Tan Oliveros ALT [Catalytic activity/Vol] 21 U/L Normal 16-63 [facility] Comment on above: Performed By: #### C K, HSTROPN, CMP, BNP #### [facility] [address] [place] [address] Dr. Tan Oliveros Anion gap [Moles/Vol] 14.6 mmol/L Normal [facility] Comment on above: Performed By: #### C K, HSTROPN, CMP, BNP #### [facility] [address] [place] [address] Dr. Tan Oliveros AST [Catalytic activity/Vol] 21 U/L Normal 15-37 [facility] Comment on above: Performed By: #### C K, HSTROPN, CMP, BNP #### [facility] [address] [place] [address] Dr. Tan Oliveros Bilirubin [Mass/Vol] 0.5 mg/dL Normal 0.2-1.0 [facility] Comment on above: Performed By: #### C K, HSTROPN, CMP, BNP #### [facility] [address] [place] [address] Dr. Tan Oliveros Calcium [Mass/Vol] 8.7 mg/dL Normal 8.5-10.1 [facility] Comment on above: Performed By: #### C K, HSTROPN, CMP, BNP #### [facility] [address] [place] [address] Dr. Tan Oliveros Chloride [Moles/Vol] 107 mmol/L Normal 98-107 [facility] Comment on above: Performed By: #### C K, HSTROPN, CMP, BNP #### [facility] [address] [place] [address] Dr. Tan Oliveros CO2 [Moles/Vol] 23.1 mmol/L Normal 21.0-32.0 [facility] [place] Comment on above: Performed By: #### C K, HSTROPN, CMP, BNP #### [facility] [address] [place] [address] Dr. Tan Oliveros Creatinine [Mass/Vol] 2.31 mg/dL Critically high 0.70-1.30 [facility] Comment on above: Performed By: #### C K, HSTROPN, CMP, BNP #### [facility] [address] [place] [address] Dr. Tan Oliveros EGFR-AF BURMESE 33 mL/min/1.73m2 Critically low >=60 [facility] Comment on above: Performed By: #### C K, HSTROPN, CMP, BNP #### [facility] [address] [place] [address] Dr. Tan Oliveros EGFR-NON AF BURMESE 27 mL/min/1.73m2 Critically low >=60 [facility] Comment on above: Performed By: #### C K, HSTROPN, CMP, BNP #### [facility] [address] [place] [address] Dr. Tan Oliveros Globulin (S) [Mass/Vol] 2.8 g/dL Normal [facility] Comment on above: Performed By: #### C K, HSTROPN, CMP, BNP #### [facility] [address] [address] [address] Tan Oliveros Glucose [Mass/Vol] 123 mg/dL Critically high 74-106 [facility] Comment on above: Performed By: #### C K, HSTROPN, CMP, BNP #### [facility] [address] [address] [address] Tan Oliveros Potassium [Moles/Vol] 4.7 mmol/L Normal 3.5-5.1 [facility] Comment on above: Performed By: #### C K, HSTROPN, CMP, BNP #### [facility] [address] [address] [address] Tan Oliveros Protein [Mass/Vol] 6.3 g/dL Critically low 6.4-8.2 [facility] Comment on above: Performed By: #### C K, HSTROPN, CMP, BNP #### [facility] [address] [address] [address] Tan Oliveros Sodium [Moles/Vol] 140 mmol/L Normal 136-145 [facility] Comment on above: Performed By: #### C K, HSTROPN, CMP, BNP #### [facility] [address] [address] [address] Tan Oliveros Urea nitrogen [Mass/Vol] 39.0 mg/dL Critically high 7.0-18.0 [facility] Comment on above: Performed By: #### C K, HSTROPN, CMP, BNP #### [facility] [address] [address] [address] Tan Oliveros Urea nitrogen/Creatinine [Mass ratio] 16.9 mg/mg Normal [facility] Comment on above: Performed By: #### C K, HSTROPN, CMP, BNP #### [facility] [address] [place] [address] Dr. Tan Oliveros TROPONIN, HIGH SENSITIVITYon 03-10-2023 HSTROP 44.5 pg/mL Normal 4.0-76.1 [facility] Comment on above: Result Comment: CUT- OFF POINTS HAVE BEEN ESTABLISHED BASED ON THE FOURTH UNIVERSAL DEFINITIONS OF MYOCARDIAL INFARCTION. THE UPPER REFERENCE LIMIT (URL) OF TROPONIN, DEFINED THE 99TH PERCENTILE OF cTnI DISTRIBUTION IN A REFERENCE POPULATION, HAS BEEN CONFIRMED THE DECISION THRESHOLD FOR [place] DIAGNOSIS. Performed By: #### C K, HSTROPN, CMP, BNP #### [facility] [address] [place], [place] [address] Dr. Tan Oliveros XR CHEST 2 Von [...] by: MIKE MARTÍNEZ Date: 2023-03-10 11:51 Normal [facility] CNOVSPon 03-07-2023 CNOVSP Normal [facility] CNPNon 03-07-2023 CNPN Normal [facility] Comprehensive metabolic 2000 panelon 03-07-2023 Albumin [Mass/Vol] 4.4 g/dL Normal 3.9-4.9 [facility] Comment on above: Order Comment: Speci men Type: BLOOD SPECIMENOrdering Facility: [facility] Address: [address] [place] [address] Performed By: #### 2 4323-8 ####[facility] [id number] [place] [address] ALP [Catalytic activity/Vol] 76 U/L Normal 38-113 [facility] Comment on above: Order Comment: Speci men Type: BLOOD SPECIMENOrdering Facility: [facility] Address: [address] [place] [address] Performed By: #### 2 4323-8 ####[facility] [id number] [place] [address] ALT [Catalytic activity/Vol] 14 U/L Normal 10-54 [facility] Comment on above: Order Comment: Speci men Type: BLOOD SPECIMENOrdering Facility: [facility] Address: [address] [address] Performed By: #### 2 4323-8 ####[facility] [id number] [place] [address] Anion gap [Moles/Vol] 10 mmol/L Normal 9-18 [facility] Comment on above: Order Comment: Speci men Type: BLOOD SPECIMENOrdering Facility: [facility] Address: [address] [address] Performed By: #### 2 4323-8 ####[facility] [id number] [place] [address] AST [Catalytic activity/Vol] 21 U/L Normal 14-40 [facility] Comment on above: Order Comment: Speci men Type: BLOOD SPECIMENOrdering Facility: [facility] Address: [address] [address] Performed By: #### 2 4323-8 ####[facility] [id number] [place] [address] Bilirubin [Mass/Vol] 0.5 mg/dL Normal 0.2-1.3 [facility] Comment on above: Order Comment: Speci men Type: BLOOD SPECIMENOrdering Facility: [facility] Address: [address] [address] Performed By: #### 2 4323-8 ####[facility] [id number] [place] [address] Calcium [Mass/Vol] 9.6 mg/dL Normal 8.5-10.2 [facility] Comment on above: Order Comment: Speci men Type: BLOOD SPECIMENOrdering Facility: [facility] Address: [address] [address] Performed By: #### 2 4323-8 ####[facility] [id number] [place] [address] Chloride [Moles/Vol] 107 mmol/L High 97-105 [facility] Comment on above: Order Comment: Speci men Type: BLOOD SPECIMENOrdering Facility: [facility] Address: [address] [place] [address] Performed By: #### 2 4323-8 ####[facility] [id number] [place] [address] CO2 [Moles/Vol] 24 mmol/L Normal 22-30 [facility] Comment on above: Order Comment: Speci men Type: BLOOD SPECIMENOrdering Facility: [facility] Address: [address] [place] [address] Performed By: #### 2 4323-8 ####[facility] [id number] [place] [address] Creatinine [Mass/Vol] 2.28 mg/dL High 0.73-1.22 [facility] Comment on above: Order Comment: Speci men Type: BLOOD SPECIMENOrdering Facility: [facility] Address: [address] [place] [address] Performed By: #### 2 4323-8 ####[facility] [id number] [place] [address] ESTIMATED GLOMERULAR FILTRATION RATE 28 mL/min/1.73m??? Low >=60 [facility] Comment on above: Order Comment: Speci men Type: BLOOD SPECIMENOrdering Facility: [facility] Address: [address] [place] [address] Result Comment: Viviana mated Glomerular Filtration Rate [...] #### 2 4323-8 ####[facility] [id number] [place] [address] Glucose [Mass/Vol] 118 mg/dL High 74-99 [facility] Comment on above: Order Comment: Speci men Type: BLOOD SPECIMENOrdering Facility: [facility] Address: [address] [place] [address] Result Comment: The [place] [employer] (ADA) provides guidance for cutoff [...] Standards of Medical Care in Diabetes 2016, [place] [employer]. Diabetes Care. 2016.39(Suppl 1). Performed By: #### 2 4323-8 ####[facility] [id number] [place] [address] Potassium [Moles/Vol] 4.2 mmol/L Normal 3.7-5.1 [facility] Comment on above: Order Comment: Farrahi oralia Type: BLOOD SPECIMENOrdering Facility: [facility] Address: [address] [place] [address] Performed By: #### 2 4323-8 ####[facility] LABCLIA [id number] [place] [address] Protein [Mass/Vol] 6.2 g/dL Low 6.3-8.0 [facility] Comment on above: Order Comment: Speci men Type: BLOOD SPECIMENOrdering Facility: [facility] Address: [address] [place] [address] Performed By: #### 2 4323-8 ####[facility] LABCLIA [id number] [place] [address] Sodium [Moles/Vol] 141 mmol/L Normal 136-144 [facility] Comment on above: Order Comment: Speci men Type: BLOOD SPECIMENOrdering Facility: [facility] Address: [address] [place] [address] Performed By: #### 2 4323-8 ####[facility] LABCLIA [id number] [place] [address] Urea nitrogen [Mass/Vol] 42 mg/dL High 9-24 [facility] Comment on above: Order Comment: Speci men Type: BLOOD SPECIMENOrdering Facility: [facility] Address: [address] [place] [address] Performed By: #### 2 4323-8 ####[facility] LABCLIA [id number] [place] [id number] CBC W Auto Differential pane l (Bld)on 02-21-2023 Basophils (Bld) [#/Vol] 0.05 10*3/uL Normal <0.11 [facility] Comment on above: Order Comment: Speci men Type: BLOOD SPECIMENOrdering Facility: [facility] Address: [address] [place] [address] Performed By: #### 5 7021-8 ####[facility] LABIA [id number] [place] [id number] Basophils/100 WBC (Bld) 0.8 % Normal [facility] Comment on above: Order Comment: Speci men Type: BLOOD SPECIMENOrdering Facility: [facility] Address: [address] [place] [address] Performed By: #### 5 7021-8 ####[facility] LABCLIA [id number] [place] [id number] Differential cell count method Nom (Bld) Auto Normal [facility] Comment on above: Order Comment: Speci men Type: BLOOD SPECIMENOrdering Facility: [facility] Address: [address] [place] [address] Performed By: #### 5 7021-8 ####[facility] LABCLIA [id number] [place] [address] Eosinophils (Bld) [#/Vol] 0.24 10*3/uL Normal <0.46 [facility] Comment on above: Order Comment: Speci men Type: BLOOD SPECIMENOrdering Facility: [facility] Address: [address] [place] [address] Performed By: #### 5 7021-8 ####[facility] LABCLIA [id number] [place] [address] Eosinophils/100 WBC (Bld) 3.9 % Normal [facility] Comment on above: Order Comment: Speci men Type: BLOOD SPECIMENOrdering Facility: [facility] Address: [address] [place] [address] Performed By: #### 5 7021-8 ####[facility] LABCLIA [id number] [place] [address] Erythrocyte distribution width (RBC) [Ratio] 14.6 % Normal 11.5-15.0 [facility] Comment on above: Order Comment: Speci men Type: BLOOD SPECIMENOrdering Facility: [facility] Address: [address] [place] [address] Performed By: #### 5 7021-8 ####[facility] LABCLIA [id number] [place] [address] Hematocrit (Bld) [Volume fraction] 39.4 % Normal 39.0-51.0 [facility] Comment on above: Order Comment: Speci men Type: BLOOD SPECIMENOrdering Facility: [facility] Address: [address] [place] [address] Performed By: #### 5 7021-8 ####[facility] LABIA [id number] [place] [address] Hemoglobin (Bld) [Mass/Vol] 12.7 g/dL Low 13.0-17.0 [facility] Comment on above: Order Comment: Speci men Type: BLOOD SPECIMENOrdering Facility: [facility] Address: [address] [address] Performed By: #### 5 7021-8 ####[facility] LABCLIA [id number] [place] [address] Immature granulocytes (Bld) [#/Vol] 0.03 10*3/uL Normal <0.10 [facility] Comment on above: Order Comment: Speci men Type: BLOOD SPECIMENOrdering Facility: [facility] Address: [address] [place] [address] Performed By: #### 5 7021-8 ####[facility] LABCLIA [id number] [place] [address] Immature granulocytes/100 WBC (Bld) 0.5 % Normal [facility] Comment on above: Order Comment: Speci men Type: BLOOD SPECIMENOrdering Facility: [facility] Address: [address] [place] [address] Performed By: #### 5 7021-8 ####[facility] LABCLIA [id number] [place] [address] Lymphocytes (Bld) [#/Vol] 0.81 10*3/uL Low 1.00-4.00 [facility] Comment on above: Order Comment: Speci men Type: BLOOD SPECIMENOrdering Facility: [facility] Address: [address] [place] [address] Performed By: #### 5 7021-8 ####[facility] LABCLIA [id number] [place] [address] Lymphocytes/100 WBC (Bld) 13.2 % Normal [facility] Comment on above: Order Comment: Speci men Type: BLOOD SPECIMENOrdering Facility: [facility] Address: [address] [place] [address] Performed By: #### 5 7021-8 ####[facility] LABCLIA [id number] [place] [address] MCH (RBC) [Entitic mass] 27.0 pg Normal 26.0-34.0 [facility] Comment on above: Order Comment: Speci men Type: BLOOD SPECIMENOrdering Facility: [facility] Address: [address] [place] [address] Performed By: #### 5 7021-8 ####[facility] LABCLIA [id number] [place] [address] MCHC (RBC) [Mass/Vol] 32.2 g/dL Normal 30.5-36.0 [facility] Comment on above: Order Comment: Speci men Type: BLOOD SPECIMENOrdering Facility: [facility] Address: [address] [place] [address] Performed By: #### 5 7021-8 ####[facility] LABIA [id number] [place] [address] MCV (RBC) [Entitic vol] 83.8 fL Normal 80.0-100.0 [facility] Comment on above: Order Comment: Speci men Type: BLOOD SPECIMENOrdering Facility: [facility] Address: [address] [place] [address] Performed By: #### 5 7021-8 ####[facility] LABIA [id number] [place] [address] Monocytes (Bld) [#/Vol] 0.47 10*3/uL Normal <0.87 [facility] Comment on above: Order Comment: Speci men Type: BLOOD SPECIMENOrdering Facility: [facility] Address: [address] [place] [address] Performed By: #### 5 7021-8 ####[facility] LABIA [id number] [place] [address] Monocytes/100 WBC (Bld) 7.7 % Normal [facility] Comment on above: Order Comment: Speci men Type: BLOOD SPECIMENOrdering Facility: [facility] Address: [address] [place] [address] Performed By: #### 5 7021-8 ####[facility] LABCLIA [id number] [place] [address] Neutrophils (Bld) [#/Vol] 4.54 10*3/uL Normal 1.45-7.50 [facility] Comment on above: Order Comment: Speci men Type: BLOOD SPECIMENOrdering Facility: [facility] Address: [address] [place] [address] Performed By: #### 5 7021-8 ####[facility] LABCLIA [id number] [place] [address] Neutrophils/100 WBC (Bld) 73.9 % Normal [facility] Comment on above: Order Comment: Speci men Type: BLOOD SPECIMENOrdering Facility: [facility] Address: [address] [place] [address] Performed By: #### 5 7021-8 ####[facility] LABCLIA [id number] [place] [address] Nucleated RBC (Bld) [#/Vol] 10*3/uL Normal <0.01 [facility] Comment on above: Order Comment: Speci men Type: BLOOD SPECIMENOrdering Facility: [facility] Address: [address] [place] [address] Performed By: #### 5 7021-8 ####[facility] LABCLIA [id number] [place] [address] Nucleated RBC/100 WBC (Bld) [Ratio] 0.0 /100 WBC Normal [facility] Comment on above: Order Comment: Speci men Type: BLOOD SPECIMENOrdering Facility: [facility] Address: [address] [place], [place] [address] Performed By: #### 5 7021-8 ####[facility] LABCLIA [id number] [place] [address] Platelet mean volume (Bld) [Entitic vol] 9.3 fL Normal 9.0-12.7 [facility] Comment on above: Order Comment: Speci men Type: BLOOD SPECIMENOrdering Facility: [facility] Address: [address] [place] [address] Performed By: #### 5 7021-8 ####[facility] LABCLIA [id number] [place] [address] Platelets (Bld) [#/Vol] 208 10*3/uL Normal 150-400 [facility] Comment on above: Order Comment: Speci men Type: BLOOD SPECIMENOrdering Facility: [facility] Address: [address] [place] [address] Performed By: #### 5 7021-8 ####[facility] LABIA [id number] [place] [address] RBC (Bld) [#/Vol] 4.70 10*6/uL Normal 4.20-6.00 [facility] Comment on above: Order Comment: Speci men Type: BLOOD SPECIMENOrdering Facility: [facility] Address: [address] [place] [address] Performed By: #### 5 7021-8 ####[facility] LABIA [id number] [place] [address] WBC (Bld) [#/Vol] 6.14 10*3/uL Normal 3.70-11.00 [facility] Comment on above: Order Comment: Speci men Type: BLOOD SPECIMENOrdering Facility: [facility] Address: [address] [place] [address] Performed By: #### 5 7021-8 ####[facility] LABIA [id number] [place] [address] CNOVSPon 02-21-2023 CNOVSP Normal [facility] CNPNon 02-21-2023 CNPN Normal [facility] Comprehensive metabolic 2000 panelon 02-21-2023 Albumin [Mass/Vol] 4.4 g/dL Normal 3.9-4.9 [facility] Comment on above: Order Comment: Speci men Type: BLOOD SPECIMENOrdering Facility: [facility] Address: [address] [place] [place] [address] Performed By: #### 2 4323-8 ####[facility] LABCLIA [id number] [place] [address] ALP [Catalytic activity/Vol] 79 U/L Normal 38-113 [facility] Comment on above: Order Comment: Speci men Type: BLOOD SPECIMENOrdering Facility: [facility] Address: [address] [place] [place] [address] Performed By: #### 2 4323-8 ####[facility] LABCLIA [id number] [place] [address] ALT [Catalytic activity/Vol] 14 U/L Normal 10-54 [facility] Comment on above: Order Comment: Speci men Type: BLOOD SPECIMENOrdering Facility: [facility] Address: [address] [place] [place] [address] Performed By: #### 2 4323-8 ####[facility] LABCLIA [id number] [place] [address] Anion gap [Moles/Vol] 12 mmol/L Normal 9-18 [facility] Comment on above: Order Comment: Speci men Type: BLOOD SPECIMENOrdering Facility: [facility] Address: [address] [place] [place] [address] Performed By: #### 2 4323-8 ####[facility] LABCLIA [id number] [place] [address] AST [Catalytic activity/Vol] 24 U/L Normal 14-40 [facility] Comment on above: Order Comment: Speci men Type: BLOOD SPECIMENOrdering Facility: [facility] Address: [address] [place] [place] [address] Performed By: #### 2 4323-8 ####[facility] LABCLIA [id number] [place] [address] Bilirubin [Mass/Vol] 0.5 mg/dL Normal 0.2-1.3 [facility] Comment on above: Order Comment: Speci men Type: BLOOD SPECIMENOrdering Facility: [facility] Address: [address] [place] [address] Performed By: #### 2 4323-8 ####[facility] LABCLIA [id number] [place] [address] Calcium [Mass/Vol] 9.2 mg/dL Normal 8.5-10.2 [facility] Comment on above: Order Comment: Speci men Type: BLOOD SPECIMENOrdering Facility: [facility] Address: [address] [place] [address] Performed By: #### 2 4323-8 ####[facility] LABCLIA [id number] [place] [address] Chloride [Moles/Vol] 105 mmol/L Normal 97-105 [facility] Comment on above: Order Comment: Speci men Type: BLOOD SPECIMENOrdering Facility: [facility] Address: [address] [place] [address] Performed By: #### 2 4323-8 ####[facility] LABCLIA [id number] [place] [address] CO2 [Moles/Vol] 25 mmol/L Normal 22-30 [facility] Comment on above: Order Comment: Speci men Type: BLOOD SPECIMENOrdering Facility: [facility] Address: [address] [place] [address] Performed By: #### 2 4323-8 ####[facility] LABCLIA [id number] [place] [address] Creatinine [Mass/Vol] 2.23 mg/dL High 0.73-1.22 [facility] Comment on above: Order Comment: Speci men Type: BLOOD SPECIMENOrdering Facility: [facility] Address: [address] [place] [address] Performed By: #### 2 4323-8 ####[facility] LABCLIA [id number] [place] [address] ESTIMATED GLOMERULAR FILTRATION RATE 29 mL/min/1.73m??? Low >=60 [facility] Comment on above: Order Comment: Vero barton Type: BLOOD SPECIMENOrdering Facility: [facility] Address: [address] [place] [address] Result Comment: Viviana mated Glomerular Filtration Rate [...] #### 2 4323-8 ####[facility] LABCLIA [id number] [place] [address] Glucose [Mass/Vol] 117 mg/dL High 74-99 [facility] Comment on above: Order Comment: Vero barton Type: BLOOD SPECIMENOrdering Facility: [facility] Address: [address] [place] [address] Result Comment: The [place] Diabetes Association (ADA) provides guidance for cutoff [...] Standards of Medical Care in Diabetes 2016, [place] [employer]. Diabetes Care. 2016.39(Suppl 1). Performed By: #### 2 4323-8 ####[facility] LABCLIA [id number] [place] [address] Potassium [Moles/Vol] 4.9 mmol/L Normal 3.7-5.1 [facility] Comment on above: Order Comment: Speci men Type: BLOOD SPECIMENOrdering Facility: [facility] Address: [address] [address] Performed By: #### 2 4323-8 ####[facility] LABCLIA [id number] [place] [address] Protein [Mass/Vol] 6.4 g/dL Normal 6.3-8.0 [facility] Comment on above: Order Comment: Speci men Type: BLOOD SPECIMENOrdering Facility: [facility] Address: [address] [place] [address] Performed By: #### 2 4323-8 ####[facility] LABCLIA [id number] [place] [address] Sodium [Moles/Vol] 142 mmol/L Normal 136-144 [facility] Comment on above: Order Comment: Speci men Type: BLOOD SPECIMENOrdering Facility: [facility] Address: [address] [place] [address] Performed By: #### 2 4323-8 ####[facility] LABCLIA [id number] [place] [address] Urea nitrogen [Mass/Vol] 36 mg/dL High 9-24 [facility] Comment on above: Order Comment: Speci men Type: BLOOD SPECIMENOrdering Facility: [facility] Address: [address] [place] [address] Performed By: #### 2 4323-8 ####[facility] LABCLIA [id number] [place] [address] Cortis Keisha-Ricaon 02-22-20 Cortisol [Mass/Vol] 11.2 ug/dL Normal 4.8-19.5 [facility] Comment on above: Order Comment: Speci men Type: BLOOD SPECIMENOrdering Facility: [facility] Address: [address] [place] [address] Result Comment: Prov ided reference range is from 6-10 AM sample collection time.Cortisol Reference Range: 6-10 AM = 4.8-19.5 ug/dL, 4-8 PM = 2.5-11.9 ug/dL Performed By: #### 2 143-6, 3016-3 ####[facility] LABCLIA [id number] [address] HbA1c (Bld)on 02-21-2023 Average glucose Estimated from glycated hemoglobin (Bld) [Mass/Vol] 103 mg/dL Normal [facility] Comment on above: Order Comment: Farrahi oralia Type: BLOOD SPECIMENOrdering Facility: [facility] Address: [address] [place] [address] Result Comment: eAG: (Estimated average glucose) is a calculated value from HgbA1c and is provider relations representative of the average blood glucose level in the last 2-3 month period. Performed By: #### 5 5454-3 ####[facility] [id number] [address] HbA1c (Bld) [Mass fraction] 5.2 % Normal 4.3-5.6 [facility] Comment on above: Order Comment: Vero barton Type: BLOOD SPECIMENOrdering Facility: [facility] Address: [address] [place] [address] Result Comment: [place] Diabetes Association guidelines indicate that patients with HgbA1c in the range 5.7-6.4% are at increased risk for development of diabetes, and intervention by lifestyle modification may be beneficial. HgbA1c greater or equal to 6.5% is considered diagnostic of diabetes. Performed By: #### 5 5454-3 ####[facility] LABIA [id number] [address] [facility] TSH SerPl-aCncon 02-21-2023 TSH Qn 3.220 m[IU]/L Normal 0.270-4.200 [facility] Comment on above: Order Comment: Farrahi men Type: BLOOD SPECIMENOrdering Facility: [facility] Address: [address] [address] Performed By: #### 2 143-6, 3016-3 ####[facility] LABCLIA [id number] [place] [address] [place] CNOVSPon 01-31-2023 CNOVSP Normal [facility] CNPNon 01-31-2023 CNPN Normal [facility] Consultation Noteon 02-01-20 Consultation Note [id number] Normal [facility] CBC W Auto Differential pane l (Bld)on 01-23-2023 Basophils (Bld) [#/Vol] 0.06 10*3/uL Normal <0.11 [facility] Comment on above: Order Comment: Speci men Type: BLOOD SPECIMENOrdering Facility: [facility] Address: [address] [address] Performed By: #### 5 7021-8 ####[facility] LABCLIA [id number] [place] [address] Basophils/100 WBC (Bld) 1.0 % Normal [facility] Comment on above: Order Comment: Speci men Type: BLOOD SPECIMENOrdering Facility: [facility] Address: [address] [place] [address] Performed By: #### 5 7021-8 ####[facility] LABCLIA [id number] [place] [address] Differential cell count method Nom (Bld) Auto Normal [facility] Comment on above: Order Comment: Speci men Type: BLOOD SPECIMENOrdering Facility: [facility] Address: [address] [address] Performed By: #### 5 7021-8 ####[facility] LABCLIA [id number] [place] [address] Eosinophils (Bld) [#/Vol] 0.23 10*3/uL Normal <0.46 [facility] Comment on above: Order Comment: Speci men Type: BLOOD SPECIMENOrdering Facility: [facility] Address: [address] [place] [address] Performed By: #### 5 7021-8 ####[facility] LABCLIA [id number] [place] [address] Eosinophils/100 WBC (Bld) 3.7 % Normal [facility] Comment on above: Order Comment: Speci men Type: BLOOD SPECIMENOrdering Facility: [facility] Address: [address] [place] [address] Performed By: #### 5 7021-8 ####[facility] LABCLIA [id number] [place] [address] Erythrocyte distribution width (RBC) [Ratio] 15.1 % High 11.5-15.0 [facility] Comment on above: Order Comment: Speci men Type: BLOOD SPECIMENOrdering Facility: [facility] Address: [address] [place] [address] Performed By: #### 5 7021-8 ####[facility] LABCLIA [id number] [place] [address] Hematocrit (Bld) [Volume fraction] 37.6 % Low 39.0-51.0 [facility] Comment on above: Order Comment: Speci men Type: BLOOD SPECIMENOrdering Facility: [facility] Address: [address] [place] [address] Performed By: #### 5 7021-8 ####[facility] LABCLIA [id number] [place] [address] Hemoglobin (Bld) [Mass/Vol] 12.4 g/dL Low 13.0-17.0 [facility] Comment on above: Order Comment: Speci men Type: BLOOD SPECIMENOrdering Facility: [facility] Address: [address] [place] [address] Performed By: #### 5 7021-8 ####[facility] LABCLIA [id number] [place] [address] Immature granulocytes (Bld) [#/Vol] 10*3/uL Normal <0.10 [facility] Comment on above: Order Comment: Speci men Type: BLOOD SPECIMENOrdering Facility: [facility] Address: [address] [place] [address] Performed By: #### 5 7021-8 ####[facility] LABCLIA [id number] [place] [address] Immature granulocytes/100 WBC (Bld) 0.3 % Normal [facility] Comment on above: Order Comment: Speci men Type: BLOOD SPECIMENOrdering Facility: [facility] Address: [address] [place] [address] Performed By: #### 5 7021-8 ####[facility] LABCLIA [id number] [place] [address] Lymphocytes (Bld) [#/Vol] 0.91 10*3/uL Low 1.00-4.00 [facility] Comment on above: Order Comment: Speci men Type: BLOOD SPECIMENOrdering Facility: [facility] Address: [address] [place] [address] Performed By: #### 5 7021-8 ####[facility] LABCLIA [id number] [place] [address] Lymphocytes/100 WBC (Bld) 14.8 % Normal [facility] Comment on above: Order Comment: Speci men Type: BLOOD SPECIMENOrdering Facility: [facility] Address: [address] [place] [address] Performed By: #### 5 7021-8 ####[facility] LABCLIA [id number] [place] [address] MCH (RBC) [Entitic mass] 27.1 pg Normal 26.0-34.0 [facility] Comment on above: Order Comment: Speci men Type: BLOOD SPECIMENOrdering Facility: [facility] Address: [address] [address] Performed By: #### 5 7021-8 ####[facility] LABCLIA [id number] [place] [address] MCHC (RBC) [Mass/Vol] 33.0 g/dL Normal 30.5-36.0 [facility] Comment on above: Order Comment: Speci men Type: BLOOD SPECIMENOrdering Facility: [facility] Address: [address] [place] [address] Performed By: #### 5 7021-8 ####[facility] LABIA [id number] [place] [address] MCV (RBC) [Entitic vol] 82.1 fL Normal 80.0-100.0 [facility] Comment on above: Order Comment: Speci men Type: BLOOD SPECIMENOrdering Facility: [facility] Address: [address] [place] [address] Performed By: #### 5 7021-8 ####[facility] LABIA [id number] [place] [address] Monocytes (Bld) [#/Vol] 0.45 10*3/uL Normal <0.87 [facility] Comment on above: Order Comment: Speci men Type: BLOOD SPECIMENOrdering Facility: [facility] Address: [address] [place] [address] Performed By: #### 5 7021-8 ####[facility] LABCLIA [id number] [place] [address] Monocytes/100 WBC (Bld) 7.3 % Normal [facility] Comment on above: Order Comment: Speci men Type: BLOOD SPECIMENOrdering Facility: [facility] Address: [address] [place] [address] Performed By: #### 5 7021-8 ####[facility] LABCLIA [id number] [place] [address] Neutrophils (Bld) [#/Vol] 4.47 10*3/uL Normal 1.45-7.50 [facility] Comment on above: Order Comment: Speci men Type: BLOOD SPECIMENOrdering Facility: [facility] Address: [address] [place] [address] Performed By: #### 5 7021-8 ####[facility] LABCLIA [id number] [place] [address] Neutrophils/100 WBC (Bld) 72.9 % Normal [facility] Comment on above: Order Comment: Speci men Type: BLOOD SPECIMENOrdering Facility: [facility] Address: [address] [place] [address] Performed By: #### 5 7021-8 ####[facility] LABCLIA [id number] [place] [address] Nucleated RBC (Bld) [#/Vol] 10*3/uL Normal <0.01 [facility] Comment on above: Order Comment: Speci men Type: BLOOD SPECIMENOrdering Facility: [facility] Address: [address] [place] [address] Performed By: #### 5 7021-8 ####[facility] LABCLIA [id number] [place] [address] Nucleated RBC/100 WBC (Bld) [Ratio] 0.0 /100 WBC Normal [facility] Comment on above: Order Comment: Speci men Type: BLOOD SPECIMENOrdering Facility: [facility] Address: [address] [place] [address] Performed By: #### 5 7021-8 ####[facility] LABCLIA [id number] [place] [address] Platelet mean volume (Bld) [Entitic vol] 8.8 fL Low 9.0-12.7 [facility] Comment on above: Order Comment: Speci men Type: BLOOD SPECIMENOrdering Facility: [facility] Address: [address] [address] Performed By: #### 5 7021-8 ####[facility] LABCLIA [id number] [place] [address] Platelets (Bld) [#/Vol] 202 10*3/uL Normal 150-400 [facility] Comment on above: Order Comment: Speci men Type: BLOOD SPECIMENOrdering Facility: [facility] Address: [address] [place] [address] Performed By: #### 5 7021-8 ####[facility] LABIA [id number] [place] [address] RBC (Bld) [#/Vol] 4.58 10*6/uL Normal 4.20-6.00 [facility] Comment on above: Order Comment: Speci men Type: BLOOD SPECIMENOrdering Facility: [facility] Address: [address] [place] [address] Performed By: #### 5 7021-8 ####[facility] LABIA [id number] [place] [address] WBC (Bld) [#/Vol] 6.14 10*3/uL Normal 3.70-11.00 [facility] Comment on above: Order Comment: Speci men Type: BLOOD SPECIMENOrdering Facility: [facility] Address: [address] [place] [address] Performed By: #### 5 7021-8 ####[facility] LABIA [id number] [place] [address] CNOVSPon 01-23-2023 CNOVSP Normal [facility] CT CHEST WO IVCONon 01-24-20 CT CHEST WO IVCON Normal [facility] Comprehensive metabolic 2000 panelon 01-23-2023 Albumin [Mass/Vol] 4.4 g/dL Normal 3.9-4.9 [facility] Comment on above: Order Comment: Speci men Type: BLOOD SPECIMENOrdering Facility: [facility] Address: [address] [address] Performed By: #### 2 4323-8 ####[facility] LABCLIA [id number] [place] [address] ALP [Catalytic activity/Vol] 76 U/L Normal 38-113 [facility] Comment on above: Order Comment: Speci men Type: BLOOD SPECIMENOrdering Facility: [facility] Address: [address] [address] Performed By: #### 2 4323-8 ####[facility] LABCLIA [id number] [place] [address] ALT [Catalytic activity/Vol] 16 U/L Normal 10-54 [facility] Comment on above: Order Comment: Speci men Type: BLOOD SPECIMENOrdering Facility: [facility] Address: [address] [address] Performed By: #### 2 4323-8 ####[facility] LABCLIA [id number] [place] [address] Anion gap [Moles/Vol] 7 mmol/L Low 9-18 [facility] Comment on above: Order Comment: Speci men Type: BLOOD SPECIMENOrdering Facility: [facility] Address: [address] [place] [address] Performed By: #### 2 4323-8 ####[facility] LABCLIA [id number] [place] [address] AST [Catalytic activity/Vol] 22 U/L Normal 14-40 [facility] Comment on above: Order Comment: Speci men Type: BLOOD SPECIMENOrdering Facility: [facility] Address: [address] [place] [address] Performed By: #### 2 4323-8 ####[facility] LABCLIA [id number] [place] [address] Bilirubin [Mass/Vol] 0.4 mg/dL Normal 0.2-1.3 [facility] Comment on above: Order Comment: Speci men Type: BLOOD SPECIMENOrdering Facility: [facility] Address: [address] [address] Performed By: #### 2 4323-8 ####[facility] LABCLIA [id number] [place] [address] Calcium [Mass/Vol] 9.0 mg/dL Normal 8.5-10.2 [facility] Comment on above: Order Comment: Speci men Type: BLOOD SPECIMENOrdering Facility: [facility] Address: [address] [address] Performed By: #### 2 4323-8 ####[facility] LABCLIA [id number] [place] [address] Chloride [Moles/Vol] 106 mmol/L High 97-105 [facility] Comment on above: Order Comment: Speci men Type: BLOOD SPECIMENOrdering Facility: [facility] Address: [address] [address] Performed By: #### 2 4323-8 ####[facility] LABCLIA [id number] [place] [address] CO2 [Moles/Vol] 25 mmol/L Normal 22-30 [facility] Comment on above: Order Comment: Speci men Type: BLOOD SPECIMENOrdering Facility: [facility] Address: [address] [address] Performed By: #### 2 4323-8 ####[facility] LABCLIA [id number] [place] [address] Creatinine [Mass/Vol] 2.30 mg/dL High 0.73-1.22 [facility] Comment on above: Order Comment: Speci men Type: BLOOD SPECIMENOrdering Facility: [facility] Address: [address] [place] [address] Performed By: #### 2 4323-8 ####[facility] LABCLIA [id number] [place] [address] ESTIMATED GLOMERULAR FILTRATION RATE 27 mL/min/1.73m??? Low >=60 [facility] Comment on above: Order Comment: Vero barton Type: BLOOD SPECIMENOrdering Facility: [facility] Address: [address] [place] [address] Result Comment: Viviana mated Glomerular Filtration Rate [...] #### 2 4323-8 ####[facility] LABCLIA [id number] [place] [address] Glucose [Mass/Vol] 100 mg/dL High 74-99 [facility] Comment on above: Order Comment: Vero barton Type: BLOOD SPECIMENOrdering Facility: [facility] Address: [address] [place] [address] Result Comment: The [place] Diabetes Association (ADA) provides guidance for cutoff [...] Standards of Medical Care in Diabetes 2016, [place] [employer]. Diabetes Care. 2016.39(Suppl 1). Performed By: #### 2 4323-8 ####[facility] LABCLIA [id number] [place] [address] Potassium [Moles/Vol] 4.2 mmol/L Normal 3.7-5.1 [facility] Comment on above: Order Comment: Speci men Type: BLOOD SPECIMENOrdering Facility: [facility] Address: [address] [place] [address] Performed By: #### 2 4323-8 ####[facility] LABCLIA [id number] [place] [address] Protein [Mass/Vol] 6.5 g/dL Normal 6.3-8.0 [facility] Comment on above: Order Comment: Speci men Type: BLOOD SPECIMENOrdering Facility: [facility] Address: [address] [place] [address] Performed By: #### 2 4323-8 ####[facility] LABCLIA [id number] [place] [address] Sodium [Moles/Vol] 138 mmol/L Normal 136-144 [facility] Comment on above: Order Comment: Speci men Type: BLOOD SPECIMENOrdering Facility: [facility] Address: [address] [place] [address] Performed By: #### 2 4323-8 ####[facility] LABCLIA [id number] [place] [address] Urea nitrogen [Mass/Vol] 36 mg/dL High 9-24 [facility] Comment on above: Order Comment: Speci men Type: BLOOD SPECIMENOrdering Facility: [facility] Address: [address] [place] [address] Performed By: #### 2 4323-8 ####[facility] LABCLIA [id number] [place] [address] Cortis Nainal-Ricaon 01-24-20 23 Cortisol [Mass/Vol] 6.8 ug/dL Normal 4.8-19.5 [facility] Comment on above: Order Comment: Speci men Type: BLOOD SPECIMENOrdering Facility: [facility] Address: [address] [place] [address] Result Comment: Prov ided reference range is from 6-10 AM sample collection time.Cortisol Reference Range: 6-10 AM = 4.8-19.5 ug/dL, 4-8 PM = 2.5-11.9 ug/dL Performed By: #### 3 016-3, 2143-6 ####[facility] LABIA [id number] [address] [facility] HbA1c (Bld)on 01-23-2023 Average glucose Estimated from glycated hemoglobin (Bld) [Mass/Vol] 105 mg/dL Normal [facility] Comment on above: Order Comment: Speci men Type: BLOOD SPECIMENOrdering Facility: [facility] Address: [address] [place] [address] Result Comment: eAG: (Estimated average glucose) is a calculated value from HgbA1c and is provider relations representative of the average blood glucose level in the last 2-3 month period. Performed By: #### 5 5454-3 ####[facility] LABIA [id number] [address] HbA1c (Bld) [Mass fraction] 5.3 % Normal 4.3-5.6 [facility] Comment on above: Order Comment: Vero barton Type: BLOOD SPECIMENOrdering Facility: [facility] Address: [address] [place] [address] Result Comment: [place] Diabetes Association guidelines indicate that patients with HgbA1c in the range 5.7-6.4% are at increased risk for development of diabetes, and intervention by lifestyle modification may be beneficial. HgbA1c greater or equal to 6.5% is considered diagnostic of diabetes. Performed By: #### 5 5454-3 ####[facility] LABCLIA [id number] [address] [place] TSH SerPl-aCncon 01-23-2023 TSH Qn 2.850 m[IU]/L Normal 0.270-4.200 [facility] Comment on above: Order Comment: Vero men Type: BLOOD SPECIMENOrdering Facility: [facility] Address: [address] [place] [address] Performed By: #### 3 016-3, 2143-6 ####[facility] LABDAVID [id number] [place] [address] [place] ECHOCARDIO M/2D COMPLETEon 0 01-11-2023 ECHOCARDIO M/2D COMPLETE Patient: JUAN JOSE AUSTIN Exam Date: 01/11/2023 : 1940 Gender:M Ordering : DR YOAN SNEED . Admission #: [id number] Family : DR CASEY CASTANEDA M.D. Order #: [id number] CLICK HERE TO VIEW EXAM ECHOCARDIOGRAM REPORT [...] M.D. on 01/11/2023 at 15:26 Approved by: Brandei Michel M.D. on 01/11/2023 at 15:32 Normal [facility] CNPNon 01-08-2023 CNPN Normal [facility] CNOVSPon 01-02-2023 CNOVSP Normal [facility] CBC W Auto Differential pane l (Bld)on 12-31-2022 Basophils (Bld) [#/Vol] 0.06 10*3/uL Normal <0.11 [facility] Comment on above: Order Comment: Speci men Type: BLOOD SPECIMENOrdering Facility: [facility] Address: [address] [address] Performed By: #### 5 7021-8 ####[facility] LABCLIA [id number] [place] [address] Basophils/100 WBC (Bld) 0.7 % Normal [facility] Comment on above: Order Comment: Speci men Type: BLOOD SPECIMENOrdering Facility: [facility] Address: [address] [place] [address] Performed By: #### 5 7021-8 ####[facility] LABCLIA [id number] [place] [address] Differential cell count method Nom (Bld) Auto Normal [facility] Comment on above: Order Comment: Speci men Type: BLOOD SPECIMENOrdering Facility: [facility] Address: [address] [place] [address] Performed By: #### 5 7021-8 ####[facility] LABCLIA [id number] [place] [address] Eosinophils (Bld) [#/Vol] 0.25 10*3/uL Normal <0.46 [facility] Comment on above: Order Comment: Speci men Type: BLOOD SPECIMENOrdering Facility: [facility] Address: [address] [place] [address] Performed By: #### 5 7021-8 ####[facility] LABCLIA [id number] [place] [address] Eosinophils/100 WBC (Bld) 3.1 % Normal [facility] Comment on above: Order Comment: Speci men Type: BLOOD SPECIMENOrdering Facility: [facility] Address: [address] [place] [address] Performed By: #### 5 7021-8 ####[facility] LABCLIA [id number] [place] [address] Erythrocyte distribution width (RBC) [Ratio] 16.1 % High 11.5-15.0 [facility] Comment on above: Order Comment: Speci men Type: BLOOD SPECIMENOrdering Facility: [facility] Address: [address] [place] [address] Performed By: #### 5 7021-8 ####[facility] LABCLIA [id number] [place] [address] Hematocrit (Bld) [Volume fraction] 39.5 % Normal 39.0-51.0 [facility] Comment on above: Order Comment: Speci men Type: BLOOD SPECIMENOrdering Facility: [facility] Address: [address] [place] [address] Performed By: #### 5 7021-8 ####[facility] LABCLIA [id number] [place] [address] Hemoglobin (Bld) [Mass/Vol] 12.8 g/dL Low 13.0-17.0 [facility] Comment on above: Order Comment: Speci men Type: BLOOD SPECIMENOrdering Facility: [facility] Address: [address] [place] [address] Performed By: #### 5 7021-8 ####[facility] LABCLIA [id number] [place] [address] Immature granulocytes (Bld) [#/Vol] 0.03 10*3/uL Normal <0.10 [facility] Comment on above: Order Comment: Speci men Type: BLOOD SPECIMENOrdering Facility: [facility] Address: [address] [address] Performed By: #### 5 7021-8 ####[facility] LABIA [id number] [place] [address] Immature granulocytes/100 WBC (Bld) 0.4 % Normal [facility] Comment on above: Order Comment: Speci men Type: BLOOD SPECIMENOrdering Facility: [facility] Address: [address] [place] [address] Performed By: #### 5 7021-8 ####[facility] LABCLIA [id number] [place] [address] Lymphocytes (Bld) [#/Vol] 0.93 10*3/uL Low 1.00-4.00 [facility] Comment on above: Order Comment: Speci men Type: BLOOD SPECIMENOrdering Facility: [facility] Address: [address] [place] [address] Performed By: #### 5 7021-8 ####[facility] LABCLIA [id number] [place] [address] Lymphocytes/100 WBC (Bld) 11.6 % Normal [facility] Comment on above: Order Comment: Speci men Type: BLOOD SPECIMENOrdering Facility: [facility] Address: [address] [place] [address] Performed By: #### 5 7021-8 ####[facility] LABCLIA [id number] [place] [address] MCH (RBC) [Entitic mass] 26.4 pg Normal 26.0-34.0 [facility] Comment on above: Order Comment: Speci men Type: BLOOD SPECIMENOrdering Facility: [facility] Address: [address] [place] [address] Performed By: #### 5 7021-8 ####[facility] LABCLIA [id number] [place] [address] MCHC (RBC) [Mass/Vol] 32.4 g/dL Normal 30.5-36.0 [facility] Comment on above: Order Comment: Speci men Type: BLOOD SPECIMENOrdering Facility: [facility] Address: [address] [place] [address] Performed By: #### 5 7021-8 ####[facility] LABCLIA [id number] [place] [address] MCV (RBC) [Entitic vol] 81.4 fL Normal 80.0-100.0 [facility] Comment on above: Order Comment: Speci men Type: BLOOD SPECIMENOrdering Facility: [facility] Address: [address] [address] Performed By: #### 5 7021-8 ####[facility] LABCLIA [id number] [place] [address] Monocytes (Bld) [#/Vol] 0.49 10*3/uL Normal <0.87 [facility] Comment on above: Order Comment: Speci men Type: BLOOD SPECIMENOrdering Facility: [facility] Address: [address] [address] Performed By: #### 5 7021-8 ####[facility] LABCLIA [id number] [place] [address] Monocytes/100 WBC (Bld) 6.1 % Normal [facility] Comment on above: Order Comment: Speci men Type: BLOOD SPECIMENOrdering Facility: [facility] Address: [address] [address] Performed By: #### 5 7021-8 ####[facility] LABCLIA [id number] [place] [address] Neutrophils (Bld) [#/Vol] 6.25 10*3/uL Normal 1.45-7.50 [facility] Comment on above: Order Comment: Speci men Type: BLOOD SPECIMENOrdering Facility: [facility] Address: [address] [address] Performed By: #### 5 7021-8 ####[facility] LABCLIA [id number] [place] [address] Neutrophils/100 WBC (Bld) 78.1 % Normal [facility] Comment on above: Order Comment: Speci men Type: BLOOD SPECIMENOrdering Facility: [facility] Address: [address] [place] [address] Performed By: #### 5 7021-8 ####[facility] LABCLIA [id number] [place] [address] Nucleated RBC (Bld) [#/Vol] 10*3/uL Normal <0.01 [facility] Comment on above: Order Comment: Speci men Type: BLOOD SPECIMENOrdering Facility: [facility] Address: [address] [place] [address] Performed By: #### 5 7021-8 ####[facility] LABIA [id number] [place] [address] Nucleated RBC/100 WBC (Bld) [Ratio] 0.0 /100 WBC Normal [facility] Comment on above: Order Comment: Speci men Type: BLOOD SPECIMENOrdering Facility: [facility] Address: [address] [place] [address] Performed By: #### 5 7021-8 ####[facility] LABIA [id number] [place] [address] Platelet mean volume (Bld) [Entitic vol] 9.1 fL Normal 9.0-12.7 [facility] Comment on above: Order Comment: Speci men Type: BLOOD SPECIMENOrdering Facility: [facility] Address: [address] [place] [address] Performed By: #### 5 7021-8 ####[facility] LABIA [id number] [place] [address] Platelets (Bld) [#/Vol] 215 10*3/uL Normal 150-400 [facility] Comment on above: Order Comment: Speci men Type: BLOOD SPECIMENOrdering Facility: [facility] Address: [address] [place] [address] Performed By: #### 5 7021-8 ####[facility] LABIA [id number] [place] [address] RBC (Bld) [#/Vol] 4.85 10*6/uL Normal 4.20-6.00 [facility] Comment on above: Order Comment: Speci men Type: BLOOD SPECIMENOrdering Facility: [facility] Address: [address] [address] Performed By: #### 5 7021-8 ####[facility] [id number] [place] [address] WBC (Bld) [#/Vol] 8.01 10*3/uL Normal 3.70-11.00 [facility] Comment on above: Order Comment: Speci men Type: BLOOD SPECIMENOrdering Facility: [facility] Address: [address] [place] [address] Performed By: #### 5 7021-8 ####[facility] LABIA [id number] [place] [address] CNCNPATEDon 12-31-2022 CNCNPATED Normal [facility] metabolic 2000 panelon 12-31-2022 Albumin [Mass/Vol] 4.4 g/dL Normal 3.9-4.9 [facility] Comment on above: Order Comment: Speci men Type: BLOOD SPECIMENOrdering Facility: [facility] Address: [address] [address] Performed By: #### 2 4323-8 ####[facility] LABIA [id number] [place] [address] ALP [Catalytic activity/Vol] 76 U/L Normal 38-113 [facility] Comment on above: Order Comment: Speci men Type: BLOOD SPECIMENOrdering Facility: [facility] Address: [address] [address] Performed By: #### 2 4323-8 ####[facility] LABIA [id number] [place] [address] ALT [Catalytic activity/Vol] 13 U/L Normal 10-54 [facility] Comment on above: Order Comment: Speci men Type: BLOOD SPECIMENOrdering Facility: [facility] Address: [address] [place] [address] Performed By: #### 2 4323-8 ####[facility] LABCLIA [id number] [place] [address] Anion gap [Moles/Vol] 11 mmol/L Normal 9-18 [facility] Comment on above: Order Comment: Speci men Type: BLOOD SPECIMENOrdering Facility: [facility] Address: [address] [place] [address] Performed By: #### 2 4323-8 ####[facility] LABCLIA [id number] [place] [address] AST [Catalytic activity/Vol] 22 U/L Normal 14-40 [facility] Comment on above: Order Comment: Speci men Type: BLOOD SPECIMENOrdering Facility: [facility] Address: [address] [place] [address] Performed By: #### 2 4323-8 ####[facility] LABCLIA [id number] [place] [address] Bilirubin [Mass/Vol] 0.4 mg/dL Normal 0.2-1.3 [facility] Comment on above: Order Comment: Speci men Type: BLOOD SPECIMENOrdering Facility: [facility] Address: [address] [place] [address] Performed By: #### 2 4323-8 ####[facility] LABCLIA [id number] [place] [address] Calcium [Mass/Vol] 9.7 mg/dL Normal 8.5-10.2 [facility] Comment on above: Order Comment: Speci men Type: BLOOD SPECIMENOrdering Facility: [facility] Address: [address] [place] [address] Performed By: #### 2 4323-8 ####[facility] LABCLIA [id number] [place] [address] Chloride [Moles/Vol] 101 mmol/L Normal 97-105 [facility] Comment on above: Order Comment: Speci men Type: BLOOD SPECIMENOrdering Facility: [facility] Address: [address] [address] Performed By: #### 2 4323-8 ####[facility] LABCLIA [id number] [place] [address] CO2 [Moles/Vol] 26 mmol/L Normal 22-30 [facility] Comment on above: Order Comment: Speci men Type: BLOOD SPECIMENOrdering Facility: [facility] Address: [address] [address] Performed By: #### 2 4323-8 ####[facility] LABCLIA [id number] [place] [address] Creatinine [Mass/Vol] 1.93 mg/dL High 0.73-1.22 [facility] Comment on above: Order Comment: Speci men Type: BLOOD SPECIMENOrdering Facility: [facility] Address: [address] [place] [address] Performed By: #### 2 4323-8 ####[facility] LABCLIA [id number] [place] [address] ESTIMATED GLOMERULAR FILTRATION RATE 34 mL/min/1.73m??? Low >=60 [facility] Comment on above: Order Comment: Speci men Type: BLOOD SPECIMENOrdering Facility: [facility] Address: [address] [place] [address] Result Comment: Viviana mated Glomerular Filtration Rate [...] #### 2 4323-8 ####[facility] LABCLIA [id number] [place] [address] Glucose [Mass/Vol] 116 mg/dL High 74-99 [facility] Comment on above: Order Comment: Speci men Type: BLOOD SPECIMENOrdering Facility: [facility] Address: [address] [place], [place] [address] Result Comment: The [place] Diabetes Association (ADA) provides guidance for cutoff [...] Standards of Medical Care in Diabetes 2016, [place] [employer]. Diabetes Care. 2016.39(Suppl 1). Performed By: #### 2 4323-8 ####[facility] LABCLIA [id number] [place] [address] Potassium [Moles/Vol] 4.2 mmol/L Normal 3.7-5.1 [facility] Comment on above: Order Comment: Farrahi men Type: BLOOD SPECIMENOrdering Facility: [facility] Address: [address] [place], [place] [address] Performed By: #### 2 4323-8 ####[facility] LABCLIA [id number] [place] [address] Protein [Mass/Vol] 6.6 g/dL Normal 6.3-8.0 [facility] Comment on above: Order Comment: Speci men Type: BLOOD SPECIMENOrdering Facility: [facility] Address: [address] [place], [place] [address] Performed By: #### 2 4323-8 ####[facility] LABCLIA [id number] [place] [address] Sodium [Moles/Vol] 138 mmol/L Normal 136-144 [facility] Comment on above: Order Comment: Speci men Type: BLOOD SPECIMENOrdering Facility: [facility] Address: [address] [place] [address] Performed By: #### 2 4323-8 ####[facility] LABCLIA [id number] [place] [address] Urea nitrogen [Mass/Vol] 37 mg/dL High 9-24 [facility] Comment on above: Order Comment: Speci men Type: BLOOD SPECIMENOrdering Facility: [facility] Address: [address] [place] [address] Performed By: #### 2 4323-8 ####[facility] LABCLIA [id number] [place] [address] Cortshaye Nainal-mCncon 01-01-20 23 Cortisol [Mass/Vol] 6.4 ug/dL Normal 4.8-19.5 [facility] Comment on above: Order Comment: Speci men Type: BLOOD SPECIMENOrdering Facility: [facility] Address: [address] [place] [address] Result Comment: Prov ided reference range is from 6-10 AM sample collection time.Cortisol Reference Range: 6-10 AM = 4.8-19.5 ug/dL, 4-8 PM = 2.5-11.9 ug/dL Performed By: #### 3 016-3, 2143-6 ####[facility] LABCLIA [id number] [address] [facility] HbA1c (Bld)on 12-31-2022 Average glucose Estimated from glycated hemoglobin (Bld) [Mass/Vol] 105 mg/dL Normal [facility] Comment on above: Order Comment: Speci men Type: BLOOD SPECIMENOrdering Facility: [facility] Address: [address] [place] [address] Result Comment: eAG: (Estimated average glucose) is a calculated value from HgbA1c and is provider relations representative of the average blood glucose level in the last 2-3 month period. Performed By: #### 5 5454-3 ####[facility] LABCLIA [id number] [address] HbA1c (Bld) [Mass fraction] 5.3 % Normal 4.3-5.6 [facility] Comment on above: Order Comment: Speci men Type: BLOOD SPECIMENOrdering Facility: [facility] Address: [address] [place] [address] Result Comment: [place] Diabetes Association guidelines indicate that patients with HgbA1c in the range 5.7-6.4% are at increased risk for development of diabetes, and intervention by lifestyle modification may be beneficial. HgbA1c greater or equal to 6.5% is considered diagnostic of diabetes. Performed By: #### 5 5454-3 ####[facility] LABCLIA [id number] [address] [place] TSH SerPl-aCncon 12-31-2022 TSH Qn 3.730 m[IU]/L Normal 0.270-4.200 [facility] Comment on above: Order Comment: Speci men Type: BLOOD SPECIMENOrdering Facility: [facility] Address: [address] [place] [address] Performed By: #### 3 016-3, 2143-6 ####[facility] LABIA [id number] [address] OF [facility] Consent for Procedure/Surger yon 12-20-2022 Consent for Procedure/Surgery [id number]. 00CD:127 Normal [facility] Urology Office/Clinic Noteon 12-18-2022 Urology Office/Clinic Note [...] URL [facility] [address], [place] [address]- Additional Instructions: PRN Patient Education I, Marisabel [...] tab(s), O (more content not included)... Normal [facility] Comment on above: Result Comment: Elec tronically Signed By: Jian RODRIGUEZ MD\.br\Date and Time Signed: 12/18/22 12:13 EST\.br\Electronically Co-Signed By: Marisabel Reeves\.br\Date and Time Co-Signed: 12/18/22 12:12 EST CBC AUTO DIFFon 12-08-2022 BASO # 0.1 103/ul Normal 0.0-0.1 [facility] Comment on above: Performed By: #### C K, HSTROPN, CMP, BNP #### [facility] [address] [place] [address] Dr. Tan Oliveros Basophils/100 WBC (Bld) 0.9 % Normal 0.2-2.0 [facility] Comment on above: Performed By: #### C K, HSTROPN, CMP, BNP #### [facility] [address] [place] [address] Dr. Tan Oliveros EO # 0.2 103/ul Normal 0.0-0.7 [facility] Comment on above: Performed By: #### C K, HSTROPN, CMP, BNP #### [facility] [address] [place] [address] Dr. Tan Oliveros Eosinophils/100 WBC (Bld) 3.7 % Normal 0.9-7.0 [facility] Comment on above: Performed By: #### C K, HSTROPN, CMP, BNP #### [facility] [address] [place] [address] Dr. Tan Oliveros Erythrocyte distribution width (RBC) [Ratio] 17.1 % Critically high 11.0-15.0 [facility] Comment on above: Performed By: #### C K, HSTROPN, CMP, BNP #### [facility] [address] [place] [address] Dr. Tan Oliveros Hematocrit (Bld) [Volume fraction] 38.5 % Critically low 42.0-54.0 [facility] Comment on above: Performed By: #### C K, HSTROPN, CMP, BNP #### [facility] [address] [place] [address] Dr. Tan Oliveros Hemoglobin (Bld) [Mass/Vol] 12.7 g/dL Critically low 14.0-18.0 [facility] Comment on above: Performed By: #### C K, HSTROPN, CMP, BNP #### [facility] [address] [place] [address] Dr. Tan Oliveros IG # 0.02 10e3/ul Normal 0.00-0.03 [facility] Comment on above: Performed By: #### C K, HSTROPN, CMP, BNP #### [facility] [address] [place] [address] Dr. Tan Oliveros IG % 0.4 % Normal 0.0-0.5 [facility] Comment on above: Performed By: #### C K, HSTROPN, CMP, BNP #### [facility] [address] [place] [address] Dr. Tan Oliveros LYMPH # 0.7 103/ul Critically low 1.2-3.[address] [facility] Comment on above: Performed By: #### C K, HSTROPN, CMP, BNP #### [facility] [address] [place] [address] Dr. Tan Oliveros Lymphocytes/100 WBC (Bld) 12.3 % Critically low 20.5-60.0 [facility] Comment on above: Performed By: #### C K, HSTROPN, CMP, BNP #### [facility] [address] [place] [address] Dr. Tan Oliveros MANUAL DIFF REQ NO Normal [facility] Comment on above: Performed By: #### C K, HSTROPN, CMP, BNP #### [facility] [address] [place] [address] Dr. Tan Oliveros MCH (RBC) [Entitic mass] 26.1 pg Normal 25.9-34.0 [facility] Comment on above: Performed By: #### C K, HSTROPN, CMP, BNP #### [facility] [address] [place], [place] [address] Dr. Tan Oliveros MCHC (RBC) [Mass/Vol] 33.0 g/dL Normal 29.9-35.2 [facility] Comment on above: Performed By: #### C K, HSTROPN, CMP, BNP #### [facility] [address] [place] [address] Dr. Tan Oliveros MCV (RBC) [Entitic vol] 79.2 fL Critically low 80.0-94.0 [facility] Comment on above: Performed By: #### C K, HSTROPN, CMP, BNP #### [facility] [address] [place] [address] Dr. Tan Oliveros MONO # 0.4 103/ul Normal 0.3-0.8 [facility] Comment on above: Performed By: #### C K, HSTROPN, CMP, BNP #### [facility] [address] [place] [address] Dr. Tan Oliveros Monocytes/100 WBC (Bld) 6.5 % Normal 1.7-12.0 [facility] Comment on above: Performed By: #### C K, HSTROPN, CMP, BNP #### [facility] [address] [place] [address] Dr. Tan Oliveros NEUT # 4.3 103/ul Normal 1.4-6.5 [facility] Comment on above: Performed By: #### C K, HSTROPN, CMP, BNP #### [facility] [address] [place] [address] Dr. Tan Oliveros Neutrophils/100 WBC (Bld) 76.2 % Critically high 43.0-75.0 [facility] Comment on above: Performed By: #### C K, HSTROPN, CMP, BNP #### [facility] [address] [place] [address] Dr. Tan Oliveros Platelet mean volume (Bld) [Entitic vol] 9.7 fL Normal 9.5-13.5 [facility] Comment on above: Performed By: #### C K, HSTROPN, CMP, BNP #### [facility] [address] [place] [address] [address] Tan Oliveros PLT 199 103/ul Normal 150-450 [facility] Comment on above: Performed By: #### C K, HSTROPN, CMP, BNP #### [facility] [address] [place] [address] Dr. Tan Oliveros RBC 4.86 106/ul Normal 4.70-6.10 [facility] Comment on above: Performed By: #### C K, HSTROPN, CMP, BNP #### [facility] [address] [place] [address] Dr. Tan Oliveros WBC 5.7 103/ul Normal 4.0-11.0 [facility] Comment on above: Performed By: #### C K, HSTROPN, CMP, BNP #### [facility] [address] [place] [address] Dr. Tan Oliveros CULTURE URINEon 12-08-2022 CULTURE URINE Culture Observations : NO GROWTH. Normal [facility] Comment on above: Performed By: #### C K, HSTROPN, CMP, BNP #### [facility] [address] [place] [address] Dr. Tan Oliveros ER URINE PROFILEon 3 Bilirubin Ql (U) Negative Normal NEGATIVE [facility] [place] Comment on above: Performed By: #### C K, HSTROPN, CMP, BNP #### [facility] [address] [place] [address] Dr. Tna Oliveros Clarity (U) CLEAR Normal CLEAR [facility] Comment on above: Performed By: #### C K, HSTROPN, CMP, BNP #### [facility] [address] [place] [address] Dr. Tan Oliveros Color (U) LT. YELLOW Normal YELLOW [facility] Comment on above: Performed By: #### C K, HSTROPN, CMP, BNP #### [facility] [address] [place] [address] Dr. Tan Oliveros ERUAHD A micrscopic examination will be performed if indicated. Normal [facility] Comment on above: Performed By: #### C K, HSTROPN, CMP, BNP #### [facility] [address] [place] [address] [address] Tan Oliveros Glucose Ql (U) Negative Normal NEGATIVE [place] Comment on above: Performed By: #### C K, HSTROPN, CMP, BNP #### [facility] [address] [place] [address] [address] Tan Oliveros Hemoglobin Ql (U) LARGE Abnormal NEGATIVE [facility] Comment on above: Performed By: #### C K, HSTROPN, CMP, BNP #### [facility] [address] [place] [address] [address] Tan Oliveros Ketones Ql (U) Negative Normal NEGATIVE [place] Comment on above: Performed By: #### C K, HSTROPN, CMP, BNP #### [facility] [address] [place] [address] [address] Tan Oliveros LEUKOCYTES SMALL Abnormal NEGATIVE [facility] Comment on above: Performed By: #### C K, HSTROPN, CMP, BNP #### [facility] [address] [place] [address] [address] Tan Oliveros Nitrite Ql (U) Negative Normal NEGATIVE [place] Comment on above: Performed By: #### C K, HSTROPN, CMP, BNP #### [facility] [address] [place] [address] [address] Tan Oliveros pH (U) 6.0 [pH] Normal 5-9 [facility] Comment on above: Performed By: #### C K, HSTROPN, CMP, BNP #### [facility] [address] [place] [address] [address] Tan Oliveros SPEC GRAVITY 1.010 Normal 1.005-<=1.[address] [facility] Comment on above: Performed By: #### C K, HSTROPN, CMP, BNP #### [facility] [address] [place] [address] [address] Tan Oliveros UA PROTEIN Negative Normal NEGATIVE/ TRACE [facility] Comment on above: Performed By: #### C K, HSTROPN, CMP, BNP #### [facility] [address] [place] [address] Dr. Tan Oliveros UR MICRO IND INDICATED Normal [facility] Comment on above: Performed By: #### C K, HSTROPN, CMP, BNP #### [facility] [address] [place] [address] [address] Tan Oliveros Urobilinogen Qn (U) 0.2 {Maged'U}/dL Normal 0.2 - 1. 0 [facility] Comment on above: Performed By: #### C K, HSTROPN, CMP, BNP #### [facility] [address] [place] [address] Dr. Tan Oliveros POINT OF CARE GLUCOSEon 11-15 Glucose [Mass/Vol] 114 mg/dL Critically high 74-106 [facility] Comment on above: Performed By: #### C K, HSTROPN, CMP, BNP #### [facility] [address] [place] [address] Dr. Tan Oliveros PROF CHEM 8 (BAS METB)on Anion gap [Moles/Vol] 13.2 mmol/L Normal [facility] Comment on above: Performed By: #### H FIONA, BMP #### [facility] [address] [place] [address] Dr. Tan Oliveros Calcium [Mass/Vol] 8.9 mg/dL Normal 8.5-10.1 [facility] Comment on above: Performed By: #### H STROPN, BMP #### [facility] [address] [place] [address] Dr. Tan Oliveros Chloride [Moles/Vol] 104 mmol/L Normal 98-107 [facility] Comment on above: Performed By: #### H STROPN, BMP #### [facility] [address] [place] [address] Dr. Tan Oliveros CO2 [Moles/Vol] 27.1 mmol/L Normal 21.0-32.0 [facility] [place] Comment on above: Performed By: #### H DEEPN, BMP #### [facility] [address] [place] [address] [address] Tan Oliveros Creatinine [Mass/Vol] 2.11 mg/dL Critically high 0.70-1.30 [facility] Comment on above: Performed By: #### H STROPN, BMP #### [facility] [address] [place] [address] [address] Tan Oliveros EGFR-AF BURMESE 37 mL/min/1.73m2 Critically low >=60 [facility] Comment on above: Performed By: #### H STROPN, BMP #### [facility] [address] [place] [address] [address] Tan Oliveros EGFR-NON AF BURMESE 30 mL/min/1.73m2 Critically low >=60 [facility] Comment on above: Performed By: #### H STROPN, BMP #### [facility] [address] [place] [address] Dr. Tan Oliveros Glucose [Mass/Vol] 107 mg/dL Critically high 74-106 [facility] Comment on above: Performed By: #### H STROPN, BMP #### [facility] [address] [place] [address] [address] Tan Oliveros Potassium [Moles/Vol] 4.3 mmol/L Normal 3.5-5.1 [facility] Comment on above: Performed By: #### H STROPN, BMP #### [facility] [address] [place] [address] Dr. Tan Oliveros Sodium [Moles/Vol] 140 mmol/L Normal 136-145 [facility] Comment on above: Performed By: #### H STROPN, BMP #### [facility] [address] [place] [address] [address] Tan Oliveros Urea nitrogen [Mass/Vol] 32.0 mg/dL Critically high 7.0-18.0 [facility] Comment on above: Performed By: #### H STROPN, BMP #### [facility] [address] [place] [address] Dr. Tan Oliveros Urea nitrogen/Creatinine [Mass ratio] 15.2 mg/mg Normal [facility] Comment on above: Performed By: #### H STROPN, BMP #### [facility] [address] [place] [address] [address] Tan Oliveros TROPONIN, HIGH SENSITIVITYon 12-08-2022 HSTROP 54.6 pg/mL Normal 4.0-76.1 [facility] Comment on above: Result Comment: CUT- OFF POINTS HAVE BEEN ESTABLISHED BASED ON THE FOURTH UNIVERSAL DEFINITIONS OF MYOCARDIAL INFARCTION. THE UPPER REFERENCE LIMIT (URL) OF TROPONIN, DEFINED THE 99TH PERCENTILE OF cTnI DISTRIBUTION IN A REFERENCE POPULATION, HAS BEEN CONFIRMED THE DECISION THRESHOLD FOR [place] DIAGNOSIS. Performed By: #### H STROPN, BMP #### [facility] [address] [place] [address] [address] Tan Oliveros URINE MICROSCOPIC ONLYon BACTERIA TRACE Abnormal NONE SEEN [facility] Comment on above: Performed By: #### C K, HSTROPN, CMP, BNP #### [facility] [address] [place] [address] Dr. Tan Oliveros Bacteria identified Cx Nom (U) INDICATED Normal [facility] Comment on above: Performed By: #### C K, HSTROPN, CMP, BNP #### [facility] [address] [place] [address] [address] Tan Oliveros CAST NONE SEEN Normal NONE SEEN [facility] Comment on above: Performed By: #### C K, HSTROPN, CMP, BNP #### [facility] [address] [place] [address] [address] Tan Oliveros Crystals LM Nom (Urine sed) NONE SEEN Normal NONE SEEN [facility] Comment on above: Performed By: #### C K, HSTROPN, CMP, BNP #### [facility] [address] [place] [address] [address] Tan Oliveros Epithelial cells LM Ql (Urine sed) RARE Normal NONE SEEN /RARE [facility] Comment on above: Performed By: #### C K, HSTROPN, CMP, BNP #### [facility] [address] [place] [address] [address] Tan Oliveros MUCOUS NONE SEEN Normal NONE SEEN [facility] Comment on above: Performed By: #### C K, HSTROPN, CMP, BNP #### [facility] [address] [place], [place] [address] Dr. Tan Oliveros RBC 20-50 Abnormal 0-2 [facility] Comment on above: Performed By: #### C K, HSTROPN, CMP, BNP #### [facility] [address] [place], [place] [address] Dr. Tan Oliveros WBC 2-5 Abnormal NONE SEEN [facility] Comment on above: Performed By: #### C K, HSTROPN, CMP, BNP #### [facility] [address] [place], [place] [address] Dr. Tan Oliveros XR CHEST 1 Von 12-08-2022 XR CHEST 1 V EXAM: XR CHEST 1 V HISTORY: SHORTNESS OF BREATH COMPARISON: 02/26/2022 TECHNIQUE: Single view of the FINDINGS: Heart size normal. No focal consolidation, pleural effusion, pulmonary congestion or pneumothorax. IMPRESSION: No acute findings. Electronically authenticated by: AUGUSTINA JAMES Date: 2022-12-08 12:54 Normal [facility] Screenson 12-06-2022 Screens [id number] CD:127 Normal [facility] Ambulatory Visit Summaryon 0 12-05-2022 Ambulatory Visit Summary JUAN JOSE AUSTIN Shirley :1940 Visit Date:12/05/2022 Ambulatory Visit Instructions Your Diagnosis Enlarged prostate with urinary obstruction Bladder cancer Cancer of kidney Gross hematuria Other obstructive and reflux uropathy Tests Performed Urnls Dip Stick Auto w/o Microscopy POC 71455 Your Care Team Attending Physician - JENNIFER [...] Paz When: Where: [facility] [address] [place] [address]- Medications What How Much When Instructions Unchanged [...] Urnls Dip Stick Auto w/o Microscopy POC 46721 (12/05/2022) Bilirubin Urine Dipstick - Negative Blood Urine Dipstick - 3+ Large Glucose Urine Dipstick - 1+ 250 mg/dl Ketones Urine Dipstick - Negative Leukocytes Urine Dipstick - 1+ Small Nitrite Urine Dipstick - Negative Protein Urine Dipstick - Trace Specific [place] Urine Dipstick - 1.020 Urine Appearance Urine [...] may make (more content not included)... Normal [facility] Patient Educationon 12-05-19 23 Patient Education Oncology Bladder Cancer Bladder cancer [...] Follow these instructions at home: ? Take gewu-mdb-tjbxyqr and prescription medicines only as told by [...] important. Where to find more information ? [place] [employer]: www.cancer.org ? National Cancer [place] (NCI): www.cancer.gov Contact a health care provider [...] 10/02/2004 Document Revised: 09/12/2018 Document Reviewed: 09/03/2017 [employer] Patient Education ? 2019 [employer]. [facility] Urology Office/Clinic Noteon 12-05-2022 Urology Office/Clinic [...] [facility] [address], [place] [address]- Additional Instructions: Patient Education Bladder Cancer Priya Roman, personally scribed for Dr. Rodriguez on 12/05/2022 10:40:47. . Documentation recorded by the scribe, Priya Moody, accurately reflects the services(s) I performed and decisions made by me. Authenticated by Dr. Rodriguez on 12/05/2022 10:43:06. Problem List/Past Medical History Ongoing Anticoagulated Bladder cancer Cancer of kidney Chronic renal disease Chronic renal failure Enlarged prostate with urinary obstruction Gross hematuria (more content not included)... Normal [facility] Comment on above: Result Comment: Elec tronically Signed By: Jian RODRIGUEZ MD\.br\Date and Time Signed: 12/05/22 10:43 EST\.br\Electronically Co-Signed By: Priya Moody\.br\Date and Time Co-Signed: 12/05/22 10:40 EST Consultation Noteon 11-27-19 Consultation Note [id number] 0CD:127 Normal [facility] CBC AUTO DIFFon 11-09-2022 BASO # 0.1 103/ul Normal 0.0-0.1 [facility] Comment on above: Performed By: #### C K, HSTROPN, CMP, BNP #### [facility] [address] [place] [address] Dr. Tan Oliveros Basophils/100 WBC (Bld) 0.7 % Normal 0.2-2.0 [facility] Comment on above: Performed By: #### C K, HSTROPN, CMP, BNP #### [facility] [address] [place] [address] Dr. Tan Oliveros EO # 0.2 103/ul Normal 0.0-0.7 [facility] Comment on above: Performed By: #### C K, HSTROPN, CMP, BNP #### [facility] [address] [place] [address] Dr. Tan Oliveros Eosinophils/100 WBC (Bld) 2.6 % Normal 0.9-7.0 [facility] Comment on above: Performed By: #### C K, HSTROPN, CMP, BNP #### [facility] [address] [place] [address] Dr. Tan Oliveros Erythrocyte distribution width (RBC) [Ratio] 17.2 % Critically high 11.0-15.0 [facility] Comment on above: Performed By: #### C K, HSTROPN, CMP, BNP #### [facility] [address] [place] [address] Dr. Tan Oliveros Hematocrit (Bld) [Volume fraction] 43.8 % Normal 42.0-54.0 [facility] Comment on above: Performed By: #### C K, HSTROPN, CMP, BNP #### [facility] [address] [place] [address] Dr. Tan Oliveros Hemoglobin (Bld) [Mass/Vol] 14.4 g/dL Normal 14.0-18.0 [facility] Comment on above: Performed By: #### C K, HSTROPN, CMP, BNP #### [facility] [address] [place] [address] Dr. Tan Oliveros IG # 0.01 10e3/ul Normal 0.00-0.03 [facility] Comment on above: Performed By: #### C K, HSTROPN, CMP, BNP #### [facility] [address] [place] [address] Dr. Tan Oliveros IG % 0.1 % Normal 0.0-0.5 [facility] Comment on above: Performed By: #### C K, HSTROPN, CMP, BNP #### [facility] [address] [place] [address] Dr. Tan Oliveros LYMPH # 1.3 103/ul Normal 1.2-3.8 [facility] Comment on above: Performed By: #### C K, HSTROPN, CMP, BNP #### [facility] [address] [place] [address] Dr. Tan Oliveros Lymphocytes/100 WBC (Bld) 18.4 % Critically low 20.5-60.0 [facility] Comment on above: Performed By: #### C K, HSTROPN, CMP, BNP #### [facility] [address] [place] [address] Dr. Tan Oliveros MANUAL DIFF REQ NO Normal [facility] Comment on above: Performed By: #### C K, HSTROPN, CMP, BNP #### [facility] [address] [place] [address] Dr. Tan Oliveros MCH (RBC) [Entitic mass] 25.0 pg Critically low 25.9-34.0 [facility] Comment on above: Performed By: #### C K, HSTROPN, CMP, BNP #### [facility] [address] [place] [address] Dr. Tan Oliveros MCHC (RBC) [Mass/Vol] 32.9 g/dL Normal 29.9-35.2 [facility] Comment on above: Performed By: #### C K, HSTROPN, CMP, BNP #### [facility] [address] [place] [address] Dr. Tan Oliveros MCV (RBC) [Entitic vol] 75.9 fL Critically low 80.0-94.0 [facility] Comment on above: Performed By: #### C K, HSTROPN, CMP, BNP #### [facility] [address] [place] [address] Dr. Tan Oliveros MONO # 0.5 103/ul Normal 0.3-0.8 [facility] Comment on above: Performed By: #### C K, HSTROPN, CMP, BNP #### [facility] [address] [place] [address] Dr. Tan lOiveros Monocytes/100 WBC (Bld) 7.1 % Normal 1.7-12.0 [facility] Comment on above: Performed By: #### C K, HSTROPN, CMP, BNP #### [facility] [address] [place] [address] Dr. Tan Oliveros NEUT # 5.1 103/ul Normal 1.4-6.5 [facility] Comment on above: Performed By: #### C K, HSTROPN, CMP, BNP #### [facility] [address] [place] [address] Dr. Tan Oliveros Neutrophils/100 WBC (Bld) 71.1 % Normal 43.0-75.0 [facility] Comment on above: Performed By: #### C K, HSTROPN, CMP, BNP #### [facility] [address] [place] [address] Dr. Tan Oliveros Platelet mean volume (Bld) [Entitic vol] 9.3 fL Critically low 9.5-13.5 [facility] Comment on above: Performed By: #### C K, HSTROPN, CMP, BNP #### [facility] [address] [place] [address] Dr. Tan Oliveros PLT 209 103/ul Normal 150-450 [facility] Comment on above: Performed By: #### C K, HSTROPN, CMP, BNP #### [facility] [address] [place] [address] Dr. Tan Oliveros RBC 5.77 106/ul Normal 4.70-6.10 [facility] Comment on above: Performed By: #### C K, HSTROPN, CMP, BNP #### [facility] [address] [place] [address] Dr. Tan Oliveros WBC 7.2 103/ul Normal 4.0-11.0 [facility] Comment on above: Performed By: #### C K, HSTROPN, CMP, BNP #### [facility] [address] [place] [address] Dr. Tan Oliveros CULTURE URINEon 11-09-2022 CULTURE URINE Culture Observations : NO GROWTH. Normal [facility] Comment on above: Performed By: #### C K, HSTROPN, CMP, BNP #### [facility] [address] [place] [address] Dr. Tan Oliveros ER URINE PROFILEon 3 Bilirubin Ql (U) Unable to perform testing due to color interference. Abnormal NEGATIVE [facility] Comment on above: Performed By: #### C K, HSTROPN, CMP, BNP #### [facility] [address] [place] [address] Dr. Tan Oliveros Clarity (U) CLEAR Normal CLEAR [facility] Comment on above: Performed By: #### C K, HSTROPN, CMP, BNP #### [facility] [address] [place] [address] Dr. Tan Oliveros Color (U) RED Abnormal YELLOW [facility] Comment on above: Performed By: #### C K, HSTROPN, CMP, BNP #### [facility] [address] [place] [address] Dr. Tan CORDOVA A micrscopic examination will be performed if indicated. Normal [facility] Comment on above: Performed By: #### C K, HSTROPN, CMP, BNP #### [facility] [address] [address] [address] Tan Oliveros Glucose Ql (U) Unable to perform testing due to color interference. Abnormal NEGATIVE [facility] Comment on above: Performed By: #### C K, HSTROPN, CMP, BNP #### [facility] [address] [address] [address] Tan Oliveros Hemoglobin Ql (U) Unable to perform testing due to color interference. Abnormal NEGATIVE [facility] Comment on above: Performed By: #### C K, HSTROPN, CMP, BNP #### [facility] [address] [address] [address] Tan Oliveros Ketones Ql (U) Unable to perform testing due to color interference. Abnormal NEGATIVE [facility] Comment on above: Performed By: #### C K, HSTROPN, CMP, BNP #### [facility] [address] [address] [address] Tan Oliveros LEUKOCYTES Unable to perform testing due to color interference. Abnormal NEGATIVE [facility] Comment on above: Performed By: #### C K, HSTROPN, CMP, BNP #### [facility] [address] [address] [address] Tan Oliveros Nitrite Ql (U) Unable to perform testing due to color interference. Abnormal NEGATIVE [facility] Comment on above: Performed By: #### C K, HSTROPN, CMP, BNP #### [facility] [address] [address] [address] Tan Oliveros pH Unable to perform testing due to color interference. Abnormal 5-9 [facility] Comment on above: Performed By: #### C K, HSTROPN, CMP, BNP #### [facility] [address] [place] [address] Dr. Tan Oliveros SPEC GRAVITY <=1.005 Abnormal 1.005-<=1.[address] [facility] Comment on above: Performed By: #### C K, HSTROPN, CMP, BNP #### [facility] [address] [address] [address] Tan Oliveros UA PROTEIN Unable to perform testing due to color interference. Normal NEGATIVE/ TRACE [facility] Comment on above: Performed By: #### C K, HSTROPN, CMP, BNP #### [facility] [address] [place] [address] Dr. Tan Oliveros UR MICRO IND INDICATED Normal [facility] Comment on above: Performed By: #### C K, HSTROPN, CMP, BNP #### [facility] [address] [address] [address] Tan Oliveros UROBILINOGEN Unable to perform testing due to color interference. Normal 0.2 - 1.0 [facility] Comment on above: Performed By: #### C K, HSTROPN, CMP, BNP #### [facility] [address] [place] [address] Dr. Tan Oliveros PROF 14(COMP METB)on 023 Albumin [Mass/Vol] 3.8 g/dL Normal 3.4-5.0 [facility] Comment on above: Performed By: #### C K, HSTROPN, CMP, BNP #### [facility] [address] [place] [address] Dr. Tan Oliveros Albumin/Globulin [Mass ratio] 1.3 {ratio} Normal [facility] Comment on above: Performed By: #### C K, HSTROPN, CMP, BNP #### [facility] [address] [place] [address] Dr. Tan Oliveros ALP [Catalytic activity/Vol] 81 U/L Normal 46-116 [facility] Comment on above: Performed By: #### C K, HSTROPN, CMP, BNP #### [facility] [address] [place] [address] Dr. Tan Oliveros ALT [Catalytic activity/Vol] 20 U/L Normal 16-63 [facility] Comment on above: Performed By: #### C K, HSTROPN, CMP, BNP #### [facility] [address] [place] [address] Dr. Tan Oliveros Anion gap [Moles/Vol] 14.3 mmol/L Normal [facility] Comment on above: Performed By: #### C K, HSTROPN, CMP, BNP #### [facility] [address] [place] [address] Dr. Tan Oliveros AST [Catalytic activity/Vol] 26 U/L Normal 15-37 [facility] Comment on above: Performed By: #### C K, HSTROPN, CMP, BNP #### [facility] [address] [address] [address] Tan Oliveros Bilirubin [Mass/Vol] 0.7 mg/dL Normal 0.2-1.0 [facility] Comment on above: Performed By: #### C K, HSTROPN, CMP, BNP #### [facility] [address] [place] [address] Dr. Tan Oliveros Calcium [Mass/Vol] 8.9 mg/dL Normal 8.5-10.1 [facility] Comment on above: Performed By: #### C K, HSTROPN, CMP, BNP #### [facility] [address] [place] [address] Dr. Tan Oliveros Chloride [Moles/Vol] 101 mmol/L Normal 98-107 [facility] Comment on above: Performed By: #### C K, HSTROPN, CMP, BNP #### [facility] [address] [place] [address] Dr. Tan Oliveros CO2 [Moles/Vol] 27.9 mmol/L Normal 21.0-32.0 [facility] Comment on above: Performed By: #### C K, HSTROPN, CMP, BNP #### [facility] [address] [place] [address] Dr. Tan Oliveros Creatinine [Mass/Vol] 1.85 mg/dL Critically high 0.70-1.30 [facility] Comment on above: Performed By: #### C K, HSTROPN, CMP, BNP #### [facility] [address] [place] [address] Dr. Tan Oliveros EGFR-AF BURMESE 43 mL/min/1.73m2 Critically low >=60 [facility] Comment on above: Performed By: #### C K, HSTROPN, CMP, BNP #### [facility] [address] [place] [address] Dr. Tan Oliveros EGFR-NON AF BURMESE 35 mL/min/1.73m2 Critically low >=60 [facility] Comment on above: Performed By: #### C K, HSTROPN, CMP, BNP #### [facility] [address] [place] [address] Dr. Tan Oliveros Globulin (S) [Mass/Vol] 3.0 g/dL Normal [facility] Comment on above: Performed By: #### C K, HSTROPN, CMP, BNP #### [facility] [address] [place] [address] Dr. Tan Oliveros Glucose [Mass/Vol] 114 mg/dL Critically high 74-106 [facility] Comment on above: Performed By: #### C K, HSTROPN, CMP, BNP #### [facility] [address] [place] [address] Dr. Tan Oliveros Potassium [Moles/Vol] 4.2 mmol/L Normal 3.5-5.1 [facility] Comment on above: Performed By: #### C K, HSTROPN, CMP, BNP #### [facility] [address] [place] [address] Dr. Tan Oliveros Protein [Mass/Vol] 6.8 g/dL Normal 6.4-8.[address] [facility] Comment on above: Performed By: #### C K, HSTROPN, CMP, BNP #### [facility] [address] [place] [address] Dr. Tan Oliveros Sodium [Moles/Vol] 139 mmol/L Normal 136-[address] [facility] Comment on above: Performed By: #### C K, HSTROPN, CMP, BNP #### [facility] [address] [place] [address] Dr. Tan Oliveros Urea nitrogen [Mass/Vol] 27.0 mg/dL Critically high 7.0-18.0 [facility] Comment on above: Performed By: #### C K, HSTROPN, CMP, BNP #### [facility] [address] [address] [address] Tan Oliveros Urea nitrogen/Creatinine [Mass ratio] 14.6 mg/mg Normal [facility] Comment on above: Performed By: #### C K, HSTROPN, CMP, BNP #### [facility] [address] [place] [address] Dr. Tan Oliveros PROTIMEon 11-09-2022 INR Coag (PPP) [Relative time] 0.99 {INR} Normal [facility] Comment on above: Performed By: #### C K, HSTROPN, CMP, BNP #### [facility] [address] [place] [address] Dr. Tan Oliveros INR GUIDELINES SEE BELOW Normal [facility] Comment on above: Result Comment: TYRELL RED INR: 2.0 - 3.0 CONDITIONS NOT LISTED BELOW 2.5 - 3.5 FOR PROSTHETIC HEART VALVE REPLACEMENT 2.5 - 3.5 RECURRENT THROMBOSIS Performed By: #### C K, HSTROPN, CMP, BNP #### [facility] [address] [place] [address] Dr. Tan Oliveros PT Coag (PPP) [Time] 10.5 s Normal 9.0-11.6 [facility] Comment on above: Performed By: #### C K, HSTROPN, CMP, BNP #### [facility] [address] [place] [address] Dr. Tan Oliveros PTTon 11-09-2022 aPTT Coag (Bld) [Time] 28.4 s Normal 22.3-36.2 [facility] Comment on above: Performed By: #### C K, HSTROPN, CMP, BNP #### [facility] [address] [place] [address] Dr. Tan Oliveros URINE MICROSCOPIC ONLYon BACTERIA TRACE Abnormal NONE SEEN [facility] Comment on above: Performed By: #### C K, HSTROPN, CMP, BNP #### [facility] [address] [address] [address] Tan Oliveros Bacteria identified Cx Nom (U) CX ALREADY ORDERED Normal [facility] Comment on above: Performed By: #### C K, HSTROPN, CMP, BNP #### [facility] [address] [address] [address] Tan Oliveros CAST NONE SEEN Normal NONE SEEN [facility] Comment on above: Performed By: #### C K, HSTROPN, CMP, BNP #### [facility] [address] [address] [address] Tan Oliveros Crystals LM Nom (Urine sed) NONE SEEN Normal NONE SEEN [facility] Comment on above: Performed By: #### C K, HSTROPN, CMP, BNP #### [facility] [address] [place] [address] Dr. Tan Oliveros Epithelial cells LM Ql (Urine sed) NONE SEEN Normal NONE SEEN /RARE [facility] Comment on above: Performed By: #### C K, HSTROPN, CMP, BNP #### [facility] [address] [place] [address] Dr. Tan Oliveros MUCOUS NONE SEEN Normal NONE SEEN [facility] Comment on above: Performed By: #### C K, HSTROPN, CMP, BNP #### [facility] [address] [place] [address] Dr. Tan Oliveros RBC (U) [#/Vol] /uL Abnormal 0-2 [facility] Comment on above: Performed By: #### C K, HSTROPN, CMP, BNP #### [facility] [address] [place] [address] Dr. Tan Oliveros WBC 0-2 Abnormal NONE SEEN [facility] Comment on above: Performed By: #### C K, HSTROPN, CMP, BNP #### [facility] [address] [place] [address] Dr. Tan Oliveros INSULINon 09-27-2022 Insulin 13.4 uIU/mL Normal 2.6-24.9 [facility] Comment on above: Performed By: #### C K, HSTROPN, CMP, BNP #### [facility] [address] [place] [address] Dr. Tan Oliveros BNPon 09-26-2022 Natriuretic peptide B (Bld) [Mass/Vol] 715.0 pg/mL Normal <=1,800.0 [facility] Comment on above: Performed By: #### C K, HSTROPN, CMP, BNP #### [facility] [address] [place] [address] Dr. Tan Oliveros CBC AUTO DIFFon 09-26-2022 BASO # 0.0 103/ul Normal 0.0-0.1 [facility] Comment on above: Performed By: #### C K, HSTROPN, CMP, BNP #### [facility] [address] [place] [address] Dr. Tan Oliveros Basophils/100 WBC (Bld) 0.7 % Normal 0.2-2.0 [facility] Comment on above: Performed By: #### C K, HSTROPN, CMP, BNP #### [facility] [address] [place] [address] Dr. Tan Oliveros EO # 0.1 103/ul Normal 0.0-0.7 [facility] Comment on above: Performed By: #### C K, HSTROPN, CMP, BNP #### [facility] [address] [place] [address] Dr. Tan Oliveros Eosinophils/100 WBC (Bld) 2.1 % Normal 0.9-7.0 [facility] Comment on above: Performed By: #### C K, HSTROPN, CMP, BNP #### [facility] [address] [place] [address] Dr. Tan Oliveros Erythrocyte distribution width (RBC) [Ratio] 15.9 % Critically high 11.0-15.0 [facility] Comment on above: Performed By: #### C K, HSTROPN, CMP, BNP #### [facility] [address] [place] [address] Dr. Tan Oliveros Hematocrit (Bld) [Volume fraction] 45.1 % Normal 42.0-54.0 [facility] Comment on above: Performed By: #### C K, HSTROPN, CMP, BNP #### [facility] [address] [place] [address] Dr. Tan Oliveros Hemoglobin (Bld) [Mass/Vol] 14.1 g/dL Normal 14.0-18.0 [facility] Comment on above: Performed By: #### C K, HSTROPN, CMP, BNP #### [facility] [address] [place] [address] Dr. Tan Oliveros IG # 0.02 10e3/ul Normal 0.00-0.03 [facility] Comment on above: Performed By: #### C K, HSTROPN, CMP, BNP #### [facility] [address] [place] [address] Dr. Tan Oliveros IG % 0.3 % Normal 0.0-0.5 [facility] Comment on above: Performed By: #### C K, HSTROPN, CMP, BNP #### [facility] [address] [place] [address] Dr. Tan Oliveros LYMPH # 0.7 103/ul Critically low 1.2-3.[address] [facility] Comment on above: Performed By: #### C K, HSTROPN, CMP, BNP #### [facility] [address] [place] [address] Dr. Tan Oliveros Lymphocytes/100 WBC (Bld) 12.4 % Critically low 20.5-60.0 [facility] Comment on above: Performed By: #### C K, HSTROPN, CMP, BNP #### [facility] [address] [place] [address] Dr. Tan Oliveros MANUAL DIFF REQ NO Normal [facility] Comment on above: Performed By: #### C K, HSTROPN, CMP, BNP #### [facility] [address] [place] [address] Dr. Tan Oliveros MCH (RBC) [Entitic mass] 23.7 pg Critically low 25.9-34.0 [facility] Comment on above: Performed By: #### C K, HSTROPN, CMP, BNP #### [facility] [address] [place] [address] Dr. Tan Oliveros MCHC (RBC) [Mass/Vol] 31.3 g/dL Normal 29.9-35.2 [facility] Comment on above: Performed By: #### C K, HSTROPN, CMP, BNP #### [facility] [address] [place] [address] Dr. Tan Oliveros MCV (RBC) [Entitic vol] 75.7 fL Critically low 80.0-94.0 [facility] Comment on above: Performed By: #### C K, HSTROPN, CMP, BNP #### [facility] [address] [place] [address] Dr. Tan Oliveros MONO # 0.4 103/ul Normal 0.3-0.8 [facility] Comment on above: Performed By: #### C K, HSTROPN, CMP, BNP #### [facility] [address] [place] [address] Dr. Tan Oliveros Monocytes/100 WBC (Bld) 6.8 % Normal 1.7-12.0 [facility] Comment on above: Performed By: #### C K, HSTROPN, CMP, BNP #### [facility] [address] [place] [address] Dr. Tan Oliveros NEUT # 4.5 103/ul Normal 1.4-6.5 [facility] Comment on above: Performed By: #### C K, HSTROPN, CMP, BNP #### [facility] [address] [place] [address] Dr. Tan Oliveros Neutrophils/100 WBC (Bld) 77.7 % Critically high 43.0-75.0 [facility] Comment on above: Performed By: #### C K, HSTROPN, CMP, BNP #### [facility] [address] [place] [address] Dr. Tan Oliveros Platelet mean volume (Bld) [Entitic vol] 9.3 fL Critically low 9.5-13.5 [facility] Comment on above: Performed By: #### C K, HSTROPN, CMP, BNP #### [facility] [address] [address] [address] Tan Oliveros PLT 205 103/ul Normal 150-450 [facility] Comment on above: Performed By: #### C K, HSTROPN, CMP, BNP #### [facility] [address] [address] [address] Tan Oliveros RBC 5.96 106/ul Normal 4.70-6.10 [facility] Comment on above: Performed By: #### C K, HSTROPN, CMP, BNP #### [facility] [address] [place] [address] Dr. Tan Oliveros WBC 5.7 103/ul Normal 4.0-11.0 [facility] Comment on above: Performed By: #### C K, HSTROPN, CMP, BNP #### [facility] [address] [place] [address] Dr. Tan Oliveros FREE THYROXINE INDEX T7on FTI 2.34 Normal 1.30-4.50 [facility] Comment on above: Performed By: #### C K, HSTROPN, CMP, BNP #### [facility] [address] [place] [address] Dr. Tan Oliveros T3U 36.0 % Normal 33.0-40.0 [facility] Comment on above: Performed By: #### C K, HSTROPN, CMP, BNP #### [facility] [address] [place] [address] Dr. Tan Oliveros T4 [Mass/Vol] 6.50 ug/dL Normal 4.50-12.10 [facility] Comment on above: Performed By: #### C K, HSTROPN, CMP, BNP #### [facility] [address] [place] [address] Dr. Tan Oliveros GLYCOHEMOGLOBIN A1Con 2021 ADA RECOMMENDATION SEE BELOW Normal [facility] Comment on above: Result Comment: ADA RECOMMENDED LIMIT 4.0 - 6.0 ADA THERAPEUTIC TARGET < 7.0 ACTION SUGGESTED > 7.0 Performed By: #### C K, HSTROPN, CMP, BNP #### [facility] [address] [address] [address] Tan Oliveros Glucose [Mass/Vol] 114 mg/dL Normal [facility] Comment on above: Performed By: #### C K, HSTROPN, CMP, BNP #### [facility] [address] [address] [address] Tan Oliveros HbA1c (Bld) [Mass fraction] 5.6 % Normal 4.5-6.2 [facility] Comment on above: Performed By: #### C K, HSTROPN, CMP, BNP #### [facility] [address] [address] [address] Tan Oliveros IRONon 09-26-2022 Iron [Mass/Vol] 40.0 ug/dL Critically low 65.0-175.0 [facility] Comment on above: Performed By: #### I LASHAE, PSASC, VITAD #### [facility] [address] [place] [address] Dr. Tan Oliveros LIPID PROFILEon 09-26-2022 CHOL-HDL RATIO NORM SEE BELOW Normal [facility] Comment on above: Result Comment: 3.3 - 4.4 LOW RISK 4.4 - 7.1 AVERAGE RISK 7.1 - 11.0 MODERATE RISK >11.0 HIGH RISK Performed By: #### B DOUGH MOLDER, T7, CMP, TSH, LIPID #### [facility] [address] [address] [address] Tan Oliveros Cholesterol [Mass/Vol] 159 mg/dL Normal <=200 [facility] Comment on above: Performed By: #### B DOUGH MOLDER, T7, CMP, TSH, LIPID #### [facility] [address] [place] [address] Dr. Tan Oliveros Cholesterol in HDL [Mass/Vol] 66 mg/dL Critically high 40-60 [facility] Comment on above: Performed By: #### B DOUGH MOLDER, T7, CMP, TSH, LIPID #### [facility] [address] [place] [address] Dr. Tan Oliveros Cholesterol in LDL [Mass/Vol] 82.4 mg/dL Normal [facility] Comment on above: Performed By: #### B DOUGH MOLDER, T7, CMP, TSH, LIPID #### [facility] [address] [place] [address] Dr. Tan Oliveros Cholesterol.total/C holesterol in HDL [Mass ratio] 2.4 {ratio} Normal [facility] Comment on above: Performed By: #### B DOUGH MOLDER, T7, CMP, TSH, LIPID #### [facility] [address] [place] [address] Dr. Tan Oliveros HDL NORMAL > or = 60 mg/dl - LO W CARDIOVASCULAR RISK <40 mg/dl - HIGH CARDIOVASCULAR RISK Normal [facility] Comment on above: Performed By: #### B DOUGH MOLDER, T7, CMP, TSH, LIPID #### [facility] [address] [place] [address] Dr. Tan Oliveros LDL CALC NORMAL SEE BELOW Normal [facility] Comment on above: Result Comment: <100 mg/dl OPTIMAL 100 - 129 mg/dl NEAR OR ABOVE OPTIMAL 130 - 159 mg/dl BORDERLINE HIGH 160 - 189 mg/dl HIGH >190 mg/dl VERY HIGH Performed By: #### B DOUGH MOLDER, T7, CMP, TSH, LIPID #### [facility] [address] [place] [address] Dr. Tan Oliveros Triglyceride [Mass/Vol] 53 mg/dL Normal <=150 [facility] Comment on above: Performed By: #### B DOUGH MOLDER, T7, CMP, TSH, LIPID #### [facility] [address] [place] [address] Dr. Tan Oliveros VLDL CALC 10.6 mg/dL Normal [facility] Comment on above: Performed By: #### B DOUGH MOLDER, T7, CMP, TSH, LIPID #### [facility] [address] [place] [address] Dr. Tan Oliveros PROF 14(COMP METB)on 2 022 Albumin [Mass/Vol] 3.9 g/dL Normal 3.4-5.0 [facility] Comment on above: Performed By: #### C K, HSTROPN, CMP, BNP #### [facility] [address] [place] [address] Dr. Tan Oliveros Albumin/Globulin [Mass ratio] 1.2 {ratio} Normal [facility] Comment on above: Performed By: #### C K, HSTROPN, CMP, BNP #### [facility] [address] [place] [address] Dr. Tan Oliveros ALP [Catalytic activity/Vol] 94 U/L Normal 46-116 [facility] Comment on above: Performed By: #### C K, HSTROPN, CMP, BNP #### [facility] [address] [place] [address] Dr. Tan Oliveros ALT [Catalytic activity/Vol] 17 U/L Normal 16-63 [facility] Comment on above: Performed By: #### C K, HSTROPN, CMP, BNP #### [facility] [address] [place] [address] Dr. Tan Oliveros Anion gap [Moles/Vol] 12.9 mmol/L Normal [facility] Comment on above: Performed By: #### C K, HSTROPN, CMP, BNP #### [facility] [address] [place] [address] Dr. Tan Oliveros AST [Catalytic activity/Vol] 20 U/L Normal 15-37 [facility] Comment on above: Performed By: #### C K, HSTROPN, CMP, BNP #### [facility] [address] [place] [address] Dr. Tan Oliveros Bilirubin [Mass/Vol] 0.4 mg/dL Normal 0.2-1.0 [facility] Comment on above: Performed By: #### C K, HSTROPN, CMP, BNP #### [facility] [address] [place] [address] Dr. Tan Oliveros Calcium [Mass/Vol] 9.1 mg/dL Normal 8.5-10.1 [facility] Comment on above: Performed By: #### C K, HSTROPN, CMP, BNP #### [facility] [address] [place], [place] [id number] Dr. Tan Oliveros Chloride [Moles/Vol] 106 mmol/L Normal 98-107 [facility] Comment on above: Performed By: #### C K, HSTROPN, CMP, BNP #### [facility] [address] [place] [address] Dr. Tan Oliveros CO2 [Moles/Vol] 29.1 mmol/L Normal 21.0-32.0 [facility] Comment on above: Performed By: #### C K, HSTROPN, CMP, BNP #### [facility] [address] [place] [address] Dr. Tan Oliveros Creatinine [Mass/Vol] 1.98 mg/dL Critically high 0.70-1.30 [facility] Comment on above: Performed By: #### C K, HSTROPN, CMP, BNP #### [facility] [address] [place] [address] Dr. Tan Oliveros EGFR-AF BURMESE 39 mL/min/1.73m2 Critically low >=60 [facility] Comment on above: Performed By: #### C K, HSTROPN, CMP, BNP #### [facility] [address] [place] [address] Dr. Tan Oliveros EGFR-NON AF BURMESE 32 mL/min/1.73m2 Critically low >=60 [facility] Comment on above: Performed By: #### C K, HSTROPN, CMP, BNP #### [facility] [address] [place] [address] Dr. Tan Oliveros Globulin (S) [Mass/Vol] 3.3 g/dL Normal [facility] Comment on above: Performed By: #### C K, HSTROPN, CMP, BNP #### [facility] [address] [place] [address] Dr. Tan Oliveros Glucose [Mass/Vol] 108 mg/dL Critically high 74-106 [facility] Comment on above: Performed By: #### C K, HSTROPN, CMP, BNP #### [facility] [address] [place] [address] Dr. Tan Oliveros Potassium [Moles/Vol] 4.0 mmol/L Normal 3.5-5.1 [facility] Comment on above: Performed By: #### C K, HSTROPN, CMP, BNP #### [facility] [address] [place] [address] Dr. Tan Oliveros Protein [Mass/Vol] 7.2 g/dL Normal 6.4-8.[address] [facility] Comment on above: Performed By: #### C K, HSTROPN, CMP, BNP #### [facility] [address] [place] [address] Dr. Tan Oliveros Sodium [Moles/Vol] 144 mmol/L Normal 136-[address] [facility] Comment on above: Performed By: #### C K, HSTROPN, CMP, BNP #### [facility] [address] [place] [address] Dr. Tan Oliveros Urea nitrogen [Mass/Vol] 43.0 mg/dL Critically high 7.0-18.0 [facility] Comment on above: Performed By: #### C K, HSTROPN, CMP, BNP #### [facility] [address] [place] [address] Dr. Tan Oliveros Urea nitrogen/Creatinine [Mass ratio] 21.7 mg/mg Normal [facility] Comment on above: Performed By: #### C K, HSTROPN, CMP, BNP #### [facility] [address] [place] [address] Dr. Tan Oliveros TSHon 09-26-2022 TSH 2.331 uIU/mL Normal 0.358-3.740 [facility] Comment on above: Performed By: #### C K, HSTROPN, CMP, BNP #### [facility] [address] [place] [address] Dr. Tan Oliveros VITAMIN D 25 OHon 09-26-2022 VIT D 25-OH 40.9 ng/mL Normal [facility] Comment on above: Performed By: #### I LASHAE, PSASC, VITAD #### [facility] [address] [place] [address] Dr. Tan Oliveros VIT D RANGES SEE BELOW Normal [facility] Comment on above: Result Comment: <20 ng/mL Vit D deficient 20 - <30 ng/mL Vit D insufficient 30 - 100 ng/mL Vit D sufficient >100 ng/mL Potential Toxicity Performed By: #### I LASHAE, PSASC, VITAD #### [facility] [address] [address] [address] Tan Oliveros URINALYSIS, REFLEX MICROSCOP ICon 09-12-2022 Bilirubin Ql (U) Negative Negative [facility] Clarity (Unsp spec) Cloudy Abnormal Clear [facility] Color (U) Light [place] Abnormal Yellow [facility] Glucose Test strip (U) [Mass/Vol] 4+ Abnormal Negative [facility] Hemoglobin Ql (U) 3+ Abnormal Negative [facility] Hyaline casts (Urine sed) [#/Area] 1-3 /LPF Abnormal 0 /LPF [facility] Ketones Ql (U) Negative Negative [facility] Leukocyte esterase Test strip Ql (U) Negative Negative [facility] Nitrite Ql (U) Negative Negative [facility] pH (U) 5.5 [pH] 5.0 - 8.0 [facility] Protein (U) [Mass/Vol] 1+ Abnormal Negative [facility] RBC LM.HPF (Urine sed) [#/Area] /[HPF] Abnormal 0-3 /HPF [facility] Specific gravity (U) [Rel density] 1.019 1.005 - 1.030 [facility] Urobilinogen Ql (U) Negative Negative [facility] WBC LM.HPF (Urine sed) [#/Area] 0-5 /HPF 0-5 /HPF [facility] URINE CULTUREon 03-17-2022 Bacteria identified Cx Nom (U) No growth (<1,000 CFU/ml) [facility] TYPE AND SCREEN,30 DAYon ABO O [facility] HIstorical Ab Scr Status Negative [facility] Rh Nom (Bld) Positive [facility] CT UROGRAM WO/W IVCONon 09-2 [facility] Dipstick and Microscopicon 0 02-23-2019 Appearance Nom (U) Cloudy Critically abnormal Clear [facility] Comment on above: Order Comment: Name Collection Type:: Clean-Voided Midstream Performed By: #### A DDONUAPLUS, CUU #### [facility] [address] [place] [address] Bacteria LM.HPF #/area (Urine sed) None Seen Normal None Seen [facility] Comment on above: Order Comment: Name Collection Type:: Clean-Voided Midstream Performed By: #### A DDONUAPLUS, CUU #### [address] Bilirubin,Urine Negative Normal Negative [facility] Comment on above: Order Comment: Name Collection Type:: Clean-Voided Midstream Performed By: #### A DDONUAPLUS, CUU #### [address] Color Nom (U) Yellow Normal Yellow [facility] Comment on above: Order Comment: Name Collection Type:: Clean-Voided Midstream Performed By: #### A DDONUAPLUS, CUU #### [address] Glucose Ql (U) Normal Normal Normal [facility] Comment on above: Order Comment: Name Collection Type:: Clean-Voided Midstream Performed By: #### A DDONUAPLUS, CUU #### [address] Hyaline Casts,Urine 0-8 Normal 0-8 [facility] Comment on above: Order Comment: Name Collection Type:: Clean-Voided Midstream Result Comment: PERF ORMED BY: [place] [address] PATHOLOGIST RED HAT OPEN STACK ADMINISTRATOR LEONARD MCCLAIN M.D. Performed By: #### A DDONUAPLUS, CUU #### [place] [address] [place] Ketones Ql (U) Negative Normal Negative [facility] Comment on above: Order Comment: Name Collection Type:: Clean-Voided Midstream Performed By: #### A DDONUAPLUS, CUU #### [address] Leukocyte esterase Test strip Ql (U) 4+ High Negative [facility] Comment on above: Order Comment: Name Collection Type:: Clean-Voided Midstream Performed By: #### A DDONUAPLUS, CUU #### [place] [address] [place] Nitrite,Urine Negative Normal Negative [facility] Comment on above: Order Comment: Name Collection Type:: Clean-Voided Midstream Performed By: #### A DDONUAPLUS, CUU #### [address] Occult Blood,Urine 3+ High Negative [facility] Comment on above: Order Comment: Name Collection Type:: Clean-Voided Midstream Result Comment: PERF ORMED BY: [place] [address] PATHOLOGIST RED HAT OPEN STACK ADMINISTRATOR LEONARD MCCLAIN M.D. Performed By: #### A DDONUAPLUS, CUU #### [address] pH (U) 7.0 [pH] Normal 5.0-9.0 [facility] Comment on above: Order Comment: Name Collection Type:: Clean-Voided Midstream Performed By: #### A DDONUAPLUS, CUU #### [address] Protein mass conc (U) 30 mg/dL High Negative [facility] Comment on above: Order Comment: Name Collection Type:: Clean-Voided Midstream Performed By: #### A DDONUAPLUS, CUU #### [place] [address] [place] RBC LM.HPF #/area (Urine sed) Innumerable High 0-4 [facility] Comment on above: Order Comment: Name Collection Type:: Clean-Voided Midstream Performed By: #### A DDONUAPLUS, CUU #### [place] [address] [place] Specificy [place],Urine 1.013 Normal 1.001-1.030 [facility] Comment on above: Order Comment: Name Collection Type:: Clean-Voided Midstream Performed By: #### A DDONUAPLUS, CUU #### [facility] [address] [place] [address] Squamous Epithelial Cell,Urine None Seen Normal 0-2 [facility] Comment on above: Order Comment: Name Collection Type:: Clean-Voided Midstream Performed By: #### A DDONUAPLUS, CUU #### [facility] [address] [place] [address] Urobilinogen,Urine Normal Normal Normal [facility] Comment on above: Order Comment: Name Collection Type:: Clean-Voided Midstream Performed By: #### A DDONUAPLUS, CUU #### [facility] [address] [place] [address] WBC LM.HPF #/area (Urine sed) Innumerable High 0-4 [facility] Comment on above: Order Comment: Name Collection Type:: Clean-Voided Midstream Performed By: #### A DDONUAPLUS, CUU #### [address] Taj 02-23-2019 L -- ---- Specimen: [id number] Received: 02/23/19 Status: MALCOLM Mendez Num: [id number] Spec Type: Cytology Subm Dr: Jian Rodriguez MD Tissues: A CYTOSLIDE (URINE) Procedures: Pap Stain/2 ---- Patient Age/Sex Location Account Attending Physician ---- Juan Jose Austin 78/M [place] [id number] Jian Rodriguez MD ---- SPEC NUM: [id number] RECD: 02/23/19 STATUS: MALCOLM MENDEZ NUM: [id number] ALEKSANDR: 02/23/19 [facility] DR: Jian Rodriguez MD ENTERED: 02/23/19 [facility] DR: FARRAH TYPE: Cytology DEPT: ALEX ORDERED: Pap Stain/2 ORDERED: Pap Stain/2 Pathological [...] examined. Microscopic examination supports the pathologic diagnosis. [id number] ---- ---- Specimen: [id number] Received: 02/23/19 Status: MALCOLM Mendez Num: [id number] Spec Type: Cytology Subm Dr: Jian Rodriguez MD Tissues: A CYTOSLIDE (URINE) Procedures: Pap Stain/2 ---- Patient: Juan Jose Austin Sr [id number] (Continued) ---- Signed (signature on file) Julio Cesar Carr MD 02/24/19 1700 [facility] Urine Cultureon 02-23-2019 Bacteria identified Cx Nom (U) ORGANISM: Pseudomonas aeruginosa (O:PSEAER) [place] Count >100,000 100,000 CFU/ML OTHER MIXED BACTERIAL [...] RESISTANT TO ALL B-LACTAM DRUGS. PERFORMED BY: [place] [address] PATHOLOGIST RED HAT OPEN STACK ADMINISTRATOR LEONARD MCCLAIN M.D. [facility] Comment on above: Performed By: #### A DDSLADE COHENU #### [address] Vital Signs Date Time Vital Sign Value Performing Clinician Facility 12-20-2023 13:09-0500 Body height 162.6 cm Wayne Chavez APRN.CNP Work Phone: [facility] 12-20-2023 13:09-0500 Body temperature 97.2 [degF] Wayne Chavez APRN.CNP Work Phone: [facility] 12-20-2023 13:09-0500 Body weight 63.1 kg Wayne Chavez APRN.CNP Work Phone: [facility] 12-20-2023 13:09-0500 Diastolic blood pressure 49 mm[Hg] Wayne Chavez APRN.CNP Work Phone: [facility] 12-20-2023 13:09-0500 Heart rate 66 /min Wayne Chavez APRN.CNP Work Phone: [facility] 12-20-2023 13:09-0500 Respiratory rate 16 /min Wayne Chavez APRN.SHINGLE PACKER Work Phone: [facility] 12-20-2023 13:09-0500 SaO2% (BldA) [Mass fraction] 97 % Wayne Chavez APRN.SHINGLE PACKER Work Phone: [facility] 12-20-2023 13:09-0500 Systolic blood pressure 119 mm[Hg] Wayne Chavez APRN.SHINGLE PACKER Work Phone: [facility] 11-29-2023 12:51-0500 Body height 162.6 cm Caesar Vazquez MD Work Phone: [facility] 11-29-2023 12:51-0500 Body temperature 98.01 [degF] Caesar Vazquez MD Work Phone: [facility] 11-29-2023 12:51-0500 Body weight 67.9 kg Caesar Vazquez MD Work Phone: [facility] 11-29-2023 12:51-0500 Diastolic blood pressure 50 mm[Hg] Caesar Vazquez MD Work Phone: [facility] 11-29-2023 12:51-0500 Heart rate 71 /min Caesar Vazquez MD Work Phone: [facility] 11-29-2023 12:51-0500 Respiratory rate 16 /min Caesar Vazquez MD Work Phone: [facility] 11-29-2023 12:51-0500 SaO2% (BldA) [Mass fraction] 98 % Caesar Vazquez MD Work Phone: [facility] 11-29-2023 12:51-0500 Systolic blood pressure 100 mm[Hg] Caesar Vazquez MD Work Phone: [facility] 09-19-2023 14:50-0500 Diastolic blood pressure 62 mm[Hg] Chair Fam Work Phone: [facility] 09-19-2023 14:50-0500 Systolic blood pressure 114 mm[Hg] Chair Cristel Work Phone: [facility] 08-29-2023 12:37-0500 Body height 162.6 cm Caesar Vazquez MD Work Phone: [facility] 08-29-2023 12:37-0500 Body temperature 97.5 [degF] Caesar Vazquez MD Work Phone: [facility] 08-29-2023 12:37-0500 Body weight 75.75 kg Caesar Vazquez MD Work Phone: [facility] 08-29-2023 12:37-0500 Diastolic blood pressure 58 mm[Hg] Caesar Vazquez MD Work Phone: [facility] 08-29-2023 12:37-0500 Heart rate 60 /min Caesar Vazquez MD Work Phone: [facility] 08-29-2023 12:37-0500 Respiratory rate 18 /min Caesar Vazquez MD Work Phone: [facility] 08-29-2023 12:37-0500 SaO2% (BldA) [Mass fraction] 97 % Caesar Vazquez MD Work Phone: [facility] 08-29-2023 12:37-0500 Systolic blood pressure 124 mm[Hg] Caesar Vazquez MD Work Phone: [facility] 07-18-2023 13:14-0400 Body height 162.6 cm Caesar Vazquez MD Work Phone: [facility] 07-18-2023 13:14-0400 Body temperature 97.59 [degF] Caesar Vazquez MD Work Phone: [facility] 07-18-2023 13:14-0400 Body weight 80.74 kg Caesar Vazquez MD Work Phone: [facility] 07-18-2023 13:14-0400 Diastolic blood pressure 52 mm[Hg] Caesar Vazquez MD Work Phone: [facility] 07-18-2023 13:14-0400 Heart rate 61 /min Caesar Vazquez MD Work Phone: [facility] 07-18-2023 13:14-0400 Respiratory rate 18 /min Caesar Vazquez MD Work Phone: [facility] 07-18-2023 13:14-0400 SaO2% (BldA) [Mass fraction] 96 % Caesar Vazquez MD Work Phone: [facility] 07-18-2023 13:14-0400 Systolic blood pressure 129 mm[Hg] Caesar Vazquez MD Work Phone: [facility] 06-27-2023 13:02-0400 Body height 162.6 cm Wayne Chavez APRN.SHINGLE PACKER Work Phone: [facility] 06-27-2023 13:02-0400 Body temperature 97 [degF] Wayne Chavez SUBMARINE DIVER.SHINGLE PACKER Work Phone: [facility] 06-27-2023 13:02-0400 Body weight 81.19 kg Wayne Chavez APRN.SHINGLE PACKER Work Phone: [facility] 06-27-2023 13:02-0400 Diastolic blood pressure 56 mm[Hg] Wayne Chavez APRN.SHINGLE PACKER Work Phone: [facility] 06-27-2023 13:02-0400 Heart rate 61 /min Wayne Chavez APRN.SHINGLE PACKER Work Phone: [facility] 06-27-2023 13:02-0400 Respiratory rate 16 /min Wayne Chavez APRN.SHINGLE PACKER Work Phone: [facility] 06-27-2023 13:02-0400 SaO2% (BldA) [Mass fraction] 99 % Wayne Chavez APRN.SHINGLE PACKER Work Phone: [facility] 06-27-2023 13:02-0400 Systolic blood pressure 122 mm[Hg] Wayne Chavez APRN.CNP Work Phone: [facility] 06-06-2023 13:31-0400 Body height 162.6 cm Caesar Vazquez MD Work Phone: [facility] 06-06-2023 13:31-0400 Body temperature 97.81 [degF] Caesar Vzaquez MD Work Phone: [facility] 06-06-2023 13:31-0400 Body weight 80.47 kg Caesar Vazquez MD Work Phone: [facility] 06-06-2023 13:31-0400 Diastolic blood pressure 63 mm[Hg] Caesar Vazquez MD Work Phone: [facility] 06-06-2023 13:31-0400 Heart rate 60 /min Caesar Vazquez MD Work Phone: [facility] 06-06-2023 13:31-0400 Respiratory rate 16 /min Caesar Vazquez MD Work Phone: [facility] 06-06-2023 13:31-0400 SaO2% (BldA) [Mass fraction] 99 % Caesar Vazquez MD Work Phone: [facility] 06-06-2023 13:31-0400 Systolic blood pressure 131 mm[Hg] Caesar Vazquez MD Work Phone: [facility] 05-16-2023 13:02-0400 Body height 162.6 cm Caesar Vazquez MD Work Phone: [facility] 05-16-2023 13:02-0400 Body temperature 97.81 [degF] Caesar Vazquez MD Work Phone: [facility] 05-16-2023 13:02-0400 Body weight 80.65 kg Caesar Vazquez MD Work Phone: [facility] 05-16-2023 13:02-0400 Diastolic blood pressure 55 mm[Hg] Caesar Vazquez MD Work Phone: [facility] 05-16-2023 13:02-0400 Heart rate 62 /min Caesar Vazquez MD Work Phone: [facility] 05-16-2023 13:02-0400 Respiratory rate 18 /min Caesar Vazquez MD Work Phone: [facility] 05-16-2023 13:02-0400 SaO2% (BldA) [Mass fraction] 100 % Caesar Vazquez MD Work Phone: [facility] 05-16-2023 13:02-0400 Systolic blood pressure 116 mm[Hg] Caesar Vazquez MD Work Phone: [facility] 04-25-2023 12:54-0400 Body height 162.6 cm Wayne Chavez APRN.SHINGLE PACKER Work Phone: [facility] 04-25-2023 12:54-0400 Body temperature 97.39 [degF] Wayne Chavez SUBMARINE DIVER.SHINGLE PACKER Work Phone: [facility] 04-25-2023 12:54-0400 Body weight 80.74 kg Wayne Chavez APRN.SHINGLE PACKER Work Phone: [facility] 04-25-2023 12:54-0400 Diastolic blood pressure 61 mm[Hg] Wayne Chavez SUBMARINE DIVER.SHINGLE PACKER Work Phone: [facility] 04-25-2023 12:54-0400 Heart rate 66 /min Wayne Chavez APRN.SHINGLE PACKER Work Phone: [facility] 04-25-2023 12:54-0400 Respiratory rate 16 /min Wayne Chavez APRN.SHINGLE PACKER Work Phone: [facility] 04-25-2023 12:54-0400 SaO2% (BldA) [Mass fraction] 97 % Wayne Chavez APRN.SHINGLE PACKER Work Phone: [facility] 04-25-2023 12:54-0400 Systolic blood pressure 140 mm[Hg] Wayne Chavez APRN.SHINGLE PACKER Work Phone: [facility] 04-04-2023 10:25-0400 Body height 162.6 cm Wayne Chavez APRN.SHINGLE PACKER Work Phone: [facility] 04-04-2023 10:25-0400 Body temperature 97.7 [degF] Wayne Chavez APRN.SHINGLE PACKER Work Phone: [facility] 04-04-2023 10:25-0400 Body weight 80.29 kg Wayne Chavez APRN.SHINGLE PACKER Work Phone: [facility] 04-04-2023 10:25-0400 Diastolic blood pressure 62 mm[Hg] Wayne Chavez APRN.SHINGLE PACKER Work Phone: [facility] 04-04-2023 10:25-0400 Heart rate 67 /min Wayne Chavez APRN.SHINGLE PACKER Work Phone: [facility] 04-04-2023 10:25-0400 Respiratory rate 16 /min Wayne Chavez APRN.SHINGLE PACKER Work Phone: [facility] 04-04-2023 10:25-0400 SaO2% (BldA) [Mass fraction] 97 % Wayne Chavez APRN.SHINGLE PACKER Work Phone: [facility] 04-04-2023 10:25-0400 Systolic blood pressure 139 mm[Hg] Wayne Chavez APRN.SHINGLE PACKER Work Phone: [facility] 03-12-2023 10:00-0400 Body weight 82.56 kg Shawn Nelson Other [employer] Other 03-12-2023 10:00-0400 Diastolic blood pressure 74 mm[Hg] Shawn Nelson Other [employer] Other 03-12-2023 10:00-0400 Systolic blood pressure 128 mm[Hg] Shawn Nelson Other [employer] Other 01-31-2023 08:17-0400 Body height 162.6 cm Caesar Vazquez MD Work Phone: [facility] 01-31-2023 08:17-0400 Body temperature 97.5 [degF] Caesar Vazquez MD Work Phone: [facility] 01-31-2023 08:17-0400 Body weight 82.19 kg Caesar Vazquez MD Work Phone: [facility] 01-31-2023 08:17-0400 Diastolic blood pressure 59 mm[Hg] Caesar Vazquez MD Work Phone: [facility] 01-31-2023 08:17-0400 Heart rate 59 /min Caesar Vazquez MD Work Phone: [facility] 01-31-2023 08:17-0400 Respiratory rate 16 /min Caesar Vazquez MD Work Phone: [facility] 01-31-2023 08:17-0400 SaO2% (BldA) [Mass fraction] 97 % Caesar Vazquez MD Work Phone: [facility] 01-31-2023 08:17-0400 Systolic blood pressure 142 mm[Hg] Caesar Vazquez MD Work Phone: [facility] 01-02-2023 14:58-0400 Body height 167.6 cm Caesar Vazquez MD Work Phone: [facility] 01-02-2023 14:58-0400 Body temperature 97.3 [degF] Caesar Vazquez MD Work Phone: [facility] 01-02-2023 14:58-0400 Body weight 80.2 kg Caesar Vazquez MD Work Phone: [facility] 01-02-2023 14:58-0400 Diastolic blood pressure 58 mm[Hg] Caesar Vazquez MD Work Phone: [facility] 01-02-2023 14:58-0400 Heart rate 63 /min Caesar Vazquez MD Work Phone: [facility] 01-02-2023 14:58-0400 Respiratory rate 16 /min Caesar Vazquez MD Work Phone: [facility] 01-02-2023 14:58-0400 SaO2% (BldA) [Mass fraction] 97 % Caesar Vazquez MD Work Phone: [facility] 01-02-2023 14:58-0400 Systolic blood pressure 133 mm[Hg] Caesar Vazquez MD Work Phone: [facility] 12-05-2022 09:20-0500 Blood Pressure Location Jian RODRIGUEZ [facility] 12-05-2022 09:20-0500 Diastolic blood pressure 70 mm[Hg] Jian RODRIGUEZ [facility] 12-05-2022 09:20-0500 Heart rate 59 /min Jian RODRIGUEZ [facility] 12-05-2022 09:20-0500 Systolic blood pressure 146 mm[Hg] Jian RODRIGUEZ [facility] 11-26-2022 08:40-0500 Body height 167.6 cm Caesar Vazquez MD Work Phone: [facility] 11-26-2022 08:40-0500 Body temperature 97.7 [degF] Caesar Vazquez MD Work Phone: [facility] 11-26-2022 08:40-0500 Body weight 77.47 kg Caesar Vazquez MD Work Phone: [facility] 11-26-2022 08:40-0500 Diastolic blood pressure 63 mm[Hg] Caesar Vazquez MD Work Phone: [facility] 11-26-2022 08:40-0500 Heart rate 60 /min Caesar Vazquez MD Work Phone: [facility] 11-26-2022 08:40-0500 Respiratory rate 16 /min Caesar Vazquez MD Work Phone: [facility] 11-26-2022 08:40-0500 SaO2% (BldA) [Mass fraction] 97 % Caesar Vazquez MD Work Phone: [facility] 11-26-2022 08:40-0500 Systolic blood pressure 131 mm[Hg] Caesar Vazquez MD Work Phone: [facility] 09-12-2022 14:05-0500 Body height 167.6 cm Nicholas Saenz MD Work Phone: [facility] 09-12-2022 14:05-0500 Body weight 78.93 kg Nicholas Saenz MD Work Phone: [facility] 09-12-2022 14:05-0500 Diastolic blood pressure 79 mm[Hg] Nicholas Saenz MD Work Phone: [facility] 09-12-2022 14:05-0500 Heart rate 79 /min Nicholas Saenz MD Work Phone: [facility] 09-12-2022 14:05-0500 Systolic blood pressure 168 mm[Hg] Nicholas Saenz MD Work Phone: [facility] 09-12-2022 10:56-0500 Diastolic blood pressure 72 mm[Hg] Pacc 4 Work Phone: [facility] 09-12-2022 10:56-0500 Systolic blood pressure 170 mm[Hg] Pacc 4 Work Phone: [facility] 09-12-2022 10:55-0500 Body height 167.6 cm Pacc 4 Work Phone: [facility] 09-12-2022 10:55-0500 Body temperature 98.29 [degF] Pacc 4 Work Phone: [facility] 09-12-2022 10:55-0500 Body weight 78.93 kg Pac 4 Work Phone: [facility] 09-12-2022 10:55-0500 Heart rate 66 /min Pac 4 Work Phone: [facility] 09-12-2022 10:55-0500 SaO2% (BldA) [Mass fraction] 96 % Pac 4 Work Phone: [facility] 03-08-2022 11:15-0400 Body weight 81.65 kg Augusto Sauceda Other [employer] Other 03-05-2022 12:37-0400 Body height 163.6 cm Soren Perea MD Work Phone: [facility] 03-05-2022 12:37-0400 Body temperature 97.81 [degF] Soren Perea MD Work Phone: [facility] 03-05-2022 12:37-0400 Body weight 83.01 kg Soren Perea MD Work Phone: [facility] 03-05-2022 12:37-0400 Diastolic blood pressure 61 mm[Hg] Soren Perea MD Work Phone: [facility] 03-05-2022 12:37-0400 Heart rate 56 /min Soren Perea MD Work Phone: [facility] 03-05-2022 12:37-0400 Respiratory rate 16 /min Soren Perea MD Work Phone: [facility] 03-05-2022 12:37-0400 SaO2% (BldA) [Mass fraction] 97 % Soren Perea MD Work Phone: [facility] 03-05-2022 12:37-0400 Systolic blood pressure 141 mm[Hg] Soren Perea MD Work Phone: [facility] 02-19-2022 12:37-0400 Body height 163.6 cm Corazon Alissa PA-C Work Phone: [facility] 02-19-2022 12:37-0400 Body temperature 97.59 [degF] Corazon Alissa PA-C Work Phone: [facility] 02-19-2022 12:37-0400 Body weight 82.19 kg Corazon Alissa PA-C Work Phone: [facility] 02-19-2022 12:37-0400 Diastolic blood pressure 59 mm[Hg] Corazon Alissa PA-C Work Phone: [facility] 02-19-2022 12:37-0400 Heart rate 67 /min Corazon Alissa PA-C Work Phone: [facility] 02-19-2022 12:37-0400 Respiratory rate 18 /min Corazon Alissa PA-C Work Phone: [facility] 02-19-2022 12:37-0400 SaO2% (BldA) [Mass fraction] 100 % Corazon Alissa PA-C Work Phone: [facility] 02-19-2022 12:37-0400 Systolic blood pressure 127 mm[Hg] Corazon Alissa PA-C Work Phone: [facility] 02-12-2022 12:56-0400 Body height 163.6 cm Soren Perea MD Work Phone: [facility] 02-12-2022 12:56-0400 Body temperature 97.39 [degF] Soren Perea MD Work Phone: [facility] 02-12-2022 12:56-0400 Body weight 84.46 kg Soren Perea MD Work Phone: [facility] 02-12-2022 12:56-0400 Diastolic blood pressure 62 mm[Hg] Soren Perea MD Work Phone: [facility] 02-12-2022 12:56-0400 Heart rate 52 /min Soren Perea MD Work Phone: [facility] 02-12-2022 12:56-0400 Respiratory rate 18 /min Soren Perea MD Work Phone: [facility] 02-12-2022 12:56-0400 SaO2% (BldA) [Mass fraction] 99 % Soren Perea MD Work Phone: [facility] 02-12-2022 12:56-0400 Systolic blood pressure 149 mm[Hg] Soren Perea MD Work Phone: [facility] 02-05-2022 12:40-0400 Body height 163.6 cm Soren Perea MD Work Phone: [facility] 02-05-2022 12:40-0400 Body temperature 97.59 [degF] Soren Perea MD Work Phone: [facility] 02-05-2022 12:40-0400 Body weight 84.91 kg Soren Perea MD Work Phone: [facility] 02-05-2022 12:40-0400 Diastolic blood pressure 62 mm[Hg] Soren Perea MD Work Phone: [facility] 02-05-2022 12:40-0400 Heart rate 57 /min Soren Perea MD Work Phone: [facility] 02-05-2022 12:40-0400 Respiratory rate 18 /min Soren Perea MD Work Phone: [facility] 02-05-2022 12:40-0400 SaO2% (BldA) [Mass fraction] 100 % Soren Perea MD Work Phone: [facility] 02-05-2022 12:40-0400 Systolic blood pressure 154 mm[Hg] Soren Perea MD Work Phone: [facility] 01-15-2022 12:35-0400 Body height 163.6 cm Corazon Alissa PA-C Work Phone: [facility] 01-15-2022 12:35-0400 Body temperature 98.1 [degF] Corazon Alissa PA-C Work Phone: [facility] 01-15-2022 12:35-0400 Body weight 84.28 kg Corazon Alissa PA-C Work Phone: [facility] 01-15-2022 12:35-0400 Diastolic blood pressure 63 mm[Hg] Corazon Alissa PA-C Work Phone: [facility] 01-15-2022 12:35-0400 Heart rate 63 /min Corazon Alissa PA-C Work Phone: [facility] 01-15-2022 12:35-0400 Respiratory rate 16 /min Corazon Alissa PA-C Work Phone: [facility] 01-15-2022 12:35-0400 SaO2% (BldA) [Mass fraction] 98 % Corazon Alissa PA-C Work Phone: [facility] 01-15-2022 12:35-0400 Systolic blood pressure 145 mm[Hg] Corazon Alissa PA-C Work Phone: [facility] 01-08-2022 09:09-0400 Body height 163.6 cm Soren Perea MD Work Phone: [facility] 01-08-2022 09:09-0400 Body temperature 97.11 [degF] Soren Perea MD Work Phone: [facility] 01-08-2022 09:09-0400 Body weight 83.55 kg Soren Perea MD Work Phone: [facility] 01-08-2022 09:09-0400 Diastolic blood pressure 80 mm[Hg] Soren Perea MD Work Phone: [facility] 01-08-2022 09:09-0400 Heart rate 62 /min Soren Perea MD Work Phone: [facility] 01-08-2022 09:090400 Respiratory rate 18 /min Soren Perea MD Work Phone: [facility] 01-08-2022 09:09-0400 SaO2% (BldA) [Mass fraction] 98 % Soren Perea MD Work Phone: [facility] 01-08-2022 09:09-0400 Systolic blood pressure 144 mm[Hg] Soren Perea MD Work Phone: [facility] Encounters Encounter Date Encounter Type Care Provider Facility Start: 12-24-2023 End: 12-24-2023 ambulatory [facility] Start: 12-20-2023 End: 12-20-2023 ambulatory WAYNE CHAVEZ Facility:[facility] Start: 12-20-2023 End: 12-20-2023 ambulatory Wayne Chavez SUBMARINE DIVER.[employer] Work Phone: Hematology/Oncology Comment on above: 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 Start: 11-02-2023 End: 11-03-2023 Emergency department patient visit JAIMEE Camacho [facility] Start: 10-10-2023 End: 10-10-2023 ambulatory CAESAR VAZQUEZ Facility:[facility] Start: 10-10-2023 End: 10-10-2023 ambulatory YOAN SNEED Facility:[facility] Start: 09-19-2023 End: 09-20-2023 ambulatory Chair Gala Fam Work Phone: Hematology/Oncology Comment on above: 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); Malignant neoplasm of right kidney, except renal pelvis (HCC); Malignant neoplasm of ureter, unspecified laterality (HCC) Start: 08-29-2023 End: 09-19-2023 [facility] Start: 08-29-2023 End: 08-29-2023 Office outpatient visit 25 minutes Caesar Vazquez MD Work Phone: Hematology/Oncology Comment on above: 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); Malignant neoplasm of ureter, unspecified laterality (HCC); Malaise and fatigue Start: 08-23-2023 End: 08-23-2023 ambulatory CAESAR VAZQUEZ Facility:[facility] Start: 08-20-2023 ambulatory [facility] Start: 08-08-2023 End: 08-09-2023 ambulatory [facility] Facility:[facility] Start: 08-08-2023 Telephone encounter Margot galvin RN Work Phone: Hematology/Oncology Comment on above: Care Coordination (S ore Throat) Start: 07-18-2023 End: [facility] Start: 07-18-2023 End: 07-19-2023 ambulatory Chair 13 [...] (Primary Dx) Start: 06-27-2023 End: 06-27-2023 ambulatory [facility] Facility:[facility] Start: 06-27-2023 End: 06-27-2023 ambulatory Chair 13 [...] Start: 06-18-2023 End: 06-19-2023 ambulatory RITA BHATT Facility:[facility] Start: 06-18-2023 End: 06-18-2023 ambulatory Rita Bhatt MD Work Phone: Urology Comment on above: Urothelial cancer (H CC) (Primary Dx) Start: 06-18-2023 End: 06-18-2023 Telemedicine consultation with patient Rita Bhatt MD Work Phone: [facility] Start: 06-06-2023 End: 06-06-2023 ambulatory [...] Start: 05-07-2023 End: 05-08-2023 ambulatory RITA BHATT Facility:[facility] Start: 05-07-2023 End: 05-07-2023 ambulatory Rita Bhatt MD Work Phone: Urology Comment on above: Malignant neoplasm o f urothelium (HCC) (Primary Dx) Start: 05-07-2023 End: 05-07-2023 Telemedicine consultation with patient Rita Bhatt MD Work Phone: [facility] Start: 04-26-2023 End: 04-29-2023 ambulatory [facility] Start: 04-25-2023 End: 04-25-2023 Orders Only [...] Start: 04-04-2023 End: 04-04-2023 ambulatory Wayne Chavez APRN.SHINGLE PACKER Work Phone: Hematology/Oncology Comment on above: 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) 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); Malignant neoplasm of right kidney, except renal pelvis (HCC); Malignant neoplasm of ureter, unspecified laterality (HCC) Start: 04-04-2023 End: 04-04-2023 Patient encounter procedure Wayne Chavez APRN.SHINGLE PACKER Work Phone: [facility] Start: 03-27-2023 End: 03-27-2023 ambulatory DAGOBERTO JAMES [facility] Start: 03-27-2023 End: 03-27-2023 Emergency department patient visit [facility] Start: 03-19-2023 Evaluation and management of inpatient JOSESITO [facility] Start: 03-19-2023 Evaluation and management of inpatient MIGUEL [facility] Start: 03-19-2023 Evaluation and management of inpatient [facility]IG[facility]EL [facility] Start: 03-18-2023 Evaluation and management of inpatient MIGUEL [facility] Start: 03-17-2023 Evaluation and management of inpatient NOROSA DUBOSE [facility] Start: 03-17-2023 End: 03-19-2023 Evaluation and management of inpatient PATRICIA WHITING [facility] Start: 03-15-2023 End: 03-15-2023 ambulatory JONATHAN LEIGH [facility] Start: 03-12-2023 End: 03-12-2023 ambulatory Shawn Nelson Other [facility] Other Start: 03-12-2023 Patient encounter procedure Shawn Nelson [facility] Start: 03-10-2023 End: 03-10-[address] DI Barrientos Facility: Start: 03-07-2023 End: 03-07-2023 [facility] Start: 02-21-2023 End: 02-21-2023 ambulatory [facility] Start: 02-19-2023 End: 02-19-2023 ambulatory RITA BHATT Facility:[facility] Start: 01-31-2023 Telephone encounter Caesar garcía MD Work Phone: [facility] Comment on above: Return Call Request; Call pt Start: 01-31-2023 End: 01-31-2023 ambulatory CAESAR GEORGE Facility:[facility] Start: 01-31-2023 End: 01-31-2023 ambulatory Chair Daniel [...] Start: 01-23-2023 End: 01-23-2023 ambulatory WAYNE CHAVEZ Facility:[facility] Start: 01-23-2023 End: 01-23-2023 ambulatory YOAN SNEED Facility:[facility] Start: 01-11-2023 End: 01-12-[address] YOAN SNEED . Facility: Start: 01-08-2023 Telephone encounter Margot galvin RN Work Phone: Hematology/Oncology Comment on above: Care Coordination (C 1D1 Post Treatment Call) Start: 01-02-2023 End: 01-03-2023 ambulatory Chair Gala [facility] Work Phone: Hematology/Oncology Comment on [...] Jimbo alvarado MD Work Phone: Kidney [facility] Comment on above: Patient Update Start: 12-18-2022 End: 12-19-2022 ambulatory Jian RODRIGUEZ Facility:[facility] Start: 12-17-2022 Telephone encounter Lauren Mckeon RN Work Phone: Hematology/Oncology Comment on above: Care Coordination (R eschedule appointment) Start: 12-08-2022 End: 12-08-[address] YOAN SNEED . Facility: Start: 12-05-2022 End: 12-06-2022 ambulatory Jian RODRIGUEZ Facility:[facility] Start: 12-05-2022 End: 12-05-2022 Patient encounter procedure Jian RODRIGUEZ [facility] Start: 11-26-2022 End: 11-26-2022 ambulatory Caesar Vazquez [...] with patient Rita Bhatt MD Work Phone: [facility] Start: 11-09-2022 End: 11-09-[address] YOAN SNEED . Facility: Start: 10-10-2022 End: 10-10-2022 ambulatory Shawn Nelson Other [employer] Other Start: 10-10-2022 Telephone encounter Shawn [facility] Start: 09-26-2022 End: 09-27-[address] YOAN SNEED . 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, unspecified laterality (HCC) Start: 09-12-2022 End: 09-12-2022 Admission to establishment Pacc Main 4 Work Phone: [facility] Start: 09-12-2022 End: 09-12-2022 Preprocedural examination done Pacc Main 4 Work Phone: Pre Anesthesia Start: 07-30-2022 End: 07-30-2022 ambulatory Shawn Nelson Other [employer] Other Start: 07-30-2022 Telephone encounter Shawn Nelson [facility] Start: 05-04-2022 ambulatory Claire Harrison RN [facility] Start: 03-26-2022 End: 03-26-2022 ambulatory Jimmy Middletonue PA-C Work Phone: Urology Comment on above: Urothelial carcinoma (HCC) (Primary Dx) Start: 03-26-2022 End: 03-26-2022 Telemedicine consultation with patient Jimmy Betancourtohue PA-C Work Phone: [facility] Start: 03-14-2022 ambulatory Claire Harrison RN [facility] Start: 03-13-2022 End: 03-13-2022 ambulatory Rita Bhatt MD Work Phone: Urology Comment on above: 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, unspecified laterality (HCC) (Primary Dx); Acute cystitis without hematuria Start: 03-13-2022 End: 03-13-2022 Telemedicine consultation with patient Rita Bhatt MD Work Phone: [facility] Start: 03-08-2022 End: 03-08-2022 ambulatory Augusto Sauceda Other [employer] Other Start: 03-08-2022 Office outpatient vi sit 25 minutes Augusto Sauceda [facility] Start: 03-05-2022 End: 03-05-2022 ambulatory Soren Perea MD Work Phone: Hematology/Oncology Comment on above: Malignant neoplasm o f ureter, unspecified laterality (HCC) (Primary Dx) Start: 03-05-2022 End: 03-05-2022 Patient encounter procedure Soren Perea MD Work Phone: [place] Start: 02-19-2022 End: 02-19-2022 ambulatory Corazon MCLAUGHLIN-C [...] Phone: [facility] Start: 01-22-2022 End: 01-22-2022 ambulatory [facility] Alek [facility] Work Phone: Hematology/Oncology Comment on above: [...] End: 07-08-2020 Subsequent hospital visit by physician [facility] Aixa Work Phone: Radiology Comment on above: 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, unspecified laterality (HCC) [C64.9] Start: 04-29-2018 End: 04-30-2018 Patient encounter DEFAULT PHYSICIAN Facility:[facility] Start: 04-21-2018 End: 04-22-2018 Patient encounter DEFAULT PHYSICIAN Facility:[facility] Procedures Date Procedure Procedure Detail Performing Clinician Start: 09-26-[address] EDEN OCHOA . Comment on above: Performed By: #### I LASHAE, PSASC, VITAD #### [facility] [address] [place] [address] Dr. Tan Oliveros Start: 09-12-2022 Urnls dip [...] Jian RODRIGUEZ Start: 07-02-2019 Kidney biopsy Jian W GIOVANNIGRISELDA Comment on above: Right ureteroscopy, Right renal [...] Detail Author Start: 02-27-2032 Urine microalbumin profile [facility] Start: 12-19-2026 [facility] Start: 11-29-2026 [facility] Start: 11-02-2026 [facility] Start: 09-19-2026 [facility] Start: 08-29-2026 [facility] Start: 08-08-2026 [facility] Start: 07-18-2026 [facility] Start: 06-27-2026 [facility] Start: 06-06-2026 DIABETES SCREEN DIABETES SCREEN [facility] Start: 05-16-2026 DIABETES SCREEN DIABETES SCREEN [facility] Start: 04-25-2026 DIABETES SCREEN DIABETES SCREEN [facility] Start: 04-04-2026 DIABETES SCREEN DIABETES SCREEN [facility] Start: 01-23-2026 DIABETES SCREEN DIABETES SCREEN [facility] Start: 12-31-2025 DIABETES SCREEN DIABETES SCREEN [facility] Start: 11-19-2025 DIABETES SCREEN DIABETES SCREEN [facility] Start: 09-12-2025 DIABETES SCREEN DIABETES SCREEN [facility] Start: 03-16-2025 DIABETES SCREEN DIABETES SCREEN [facility] Start: 03-05-2025 DIABETES SCREEN DIABETES SCREEN [facility] Start: 02-19-2025 DIABETES SCREEN DIABETES SCREEN [facility] Start: 02-12-2025 DIABETES SCREEN DIABETES SCREEN [facility] Start: 02-05-2025 DIABETES SCREEN DIABETES SCREEN [facility] [place] Start: 01-22-2025 DIABETES SCREEN DIABETES SCREEN [facility] Start: 01-15-2025 DIABETES SCREEN DIABETES SCREEN [facility] Start: 01-08-2025 DIABETES SCREEN DIABETES SCREEN [facility] Start: 12-24-2023 End: 03-24-2024 CBC W Auto Differential panel - Blood CBC + DIFF Lab Routine 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), stage V (HCC) Abnormal weight loss Malignant neoplasm of urinary bladder, unspecified site (HCC) Expected: 12/24/2023, Expires: 03/24/2024 [facility] Work Phone: Comment on above: Expected: 12/24/2023 , Expires: 03/24/2024 Start: 12-24-2023 End: 03-24-2024 Comprehensive metabolic 2000 panel - Serum or Plasma COMP METABOLIC PANEL Lab Routine 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), stage V (HCC) Abnormal weight loss Malignant neoplasm of urinary bladder, unspecified site (HCC) Expected: 12/24/2023, Expires: 03/24/2024 [facility] Work Phone: Comment on above: Expected: 12/24/2023 , Expires: 03/24/2024 Start: 10-14-2023 Advance Directive Discussion Advance Directive Discussion [facility] Start: 10-14-2023 Depression Assessment Depression Ass essment [facility] Start: 10-07-2023 Shingrix Vaccine (2 of 2) Banks grix Vaccine (2 of 2) [facility] Start: 08-22-2023 End: 08-16-2024 Ct abdomen & pelvis w/contrast material CT ABD/PEL W IVCON Radiology Routine Malignant 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) Expected: 08/22/2023 (Approximate), Expires: 08/16/2024 [facility] Work Phone: Comment on above: Expected: 08/22/2023 (Approximate), Expires: 08/16/2024 Start: 08-22-2023 End: 08-16-2024 CT CHEST W IVCON CT CHEST W IVCON Radiology Routine Malignant 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) Expected: 08/22/2023 (Approximate), Expires: 08/16/2024 [facility] Work Phone: Comment on above: Expected: 08/22/2023 (Approximate), Expires: 08/16/2024 Start: 07-19-2023 End: 09-18-2023 CBC W Auto Differential panel - Blood CBC + DIFF Lab Routine Malignant 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) Malaise and fatigue Expected: 07/19/2023, Expires: 09/18/2023 [facility] Work Phone: Comment on above: Expected: 07/19/2023 , Expires: 09/18/2023 Start: 07-19-2023 End: 09-18-2023 Comprehensive metabolic 2000 panel - Serum or Plasma COMP METABOLIC PANEL Lab Routine Malignant 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) Malaise and fatigue Expected: 07/19/2023, Expires: 09/18/2023 [facility] Work Phone: Comment on above: Expected: 07/19/2023 , Expires: 09/18/2023 Start: 07-19-2023 End: 09-18-2023 Thyrotropin [Units/volume] in Serum or Plasma TSH BLD Lab Routine Malignant 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) Malaise and fatigue Expected: 07/19/2023, Expires: 09/18/2023 [facility] Work Phone: Comment on above: Expected: 07/19/2023 , Expires: 09/18/2023 Start: 06-14-2023 Covid-19 Vaccine ( season) Covid-19 Vaccine () [facility] Start: 06-14-2023 Influenza vaccination [facility] Start: 04-25-2023 End: 06-25-2023 Thyroxine (T4) free [Mass/volume] in Serum or Plasma [facility] Work Phone: Comment on above: Expected: 04/25/2023 , Expires: 06/25/2023 Start: 04-25-2023 End: 06-25-2023 Triiodothyronine (T3) [Mass/volume] in Serum or Plasma [facility] Work Phone: Comment on above: Expected: 04/25/2023 , Expires: 06/25/2023 Start: 12-19-2022 End: 02-18-2023 Renal function 2000 panel - Serum or Plasma RENAL FUNCTION PANEL Lab Routine CELSO (acute kidney injury) ([facility]) Expected: 12/19/2022, Expires: 02/18/2023 [facility] Work Phone: Comment on above: Expected: 12/19/2022 , Expires: 02/18/2023 Start: 10-14-2022 ADVANCE DIRECTIVE DISCUSSION ADVANCE DIRECTIVE DISCUSSION [facility] Start: 10-14-2022 DEPRESSION ASSESSMENT DEPRESSION ASS ESSMENT [facility] Start: 06-14-2022 Influenza vaccination [facility] Start: 03-13-2022 End: 03-13-2023 ECG COMPLETE ECG COMPLETE ECG Routine 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, unspecified laterality (HCC) Expected: 03/13/2022, Expires: 03/13/2023 [facility] Work Phone: Comment on above: Expected: 03/13/2022 , Expires: 03/13/2023 Start: 02-19-2022 End: 04-21-2022 CBC W Auto Differential panel - Blood CBC + DIFF Lab Routine Malignant neoplasm of ureter, unspecified laterality (HCC) Expected: 02/19/2022, Expires: 04/21/2022 [facility] Work Phone: Comment on above: Expected: 02/19/2022 , Expires: 04/21/2022 Start: 02-19-2022 End: 04-21-2022 Comprehensive metabolic 2000 panel - Serum or Plasma COMP METABOLIC PANEL Lab Routine Malignant neoplasm of ureter, unspecified laterality (HCC) Expected: 02/19/2022, Expires: 04/21/2022 [facility] Work Phone: Comment on above: Expected: 02/19/2022 , Expires: 04/21/2022 Start: 01-22-2022 End: 03-24-2022 CBC W Auto Differential panel - Blood CBC + DIFF Lab Routine Malignant neoplasm of ureter, unspecified laterality (HCC) Expected: 01/22/2022, Expires: 03/24/2022 [facility] Work Phone: Comment on above: Expected: 01/22/2022 , Expires: 03/24/2022 Start: 01-22-2022 End: 03-24-2022 Comprehensive metabolic 2000 panel - Serum or Plasma COMP METABOLIC PANEL Lab Routine Malignant neoplasm of ureter, unspecified laterality (HCC) Expected: 01/22/2022, Expires: 03/24/2022 [facility] Work Phone: Comment on above: Expected: 01/22/2022 , Expires: 03/24/2022 Start: 12-14-2021 COVID-19 VACCINE (4 - Booster for Pfizer series) COVID-19 VACCINE (4 - Booster for Pfizer series) [facility] Start: 11-10-2021 COVID-19 VACCINE (4 - Booster for Pfizer series) COVID-19 VACCINE (4 - Booster for Pfizer series) [facility] Start: 11-10-2021 COVID-19 VACCINE (6 - Pfizer series) COVID-19 VACCINE (6 - Pfizer series) [facility] Start: 10-14-2021 ADVANCE DIRECTIVE DISCUSSION ADVANCE DIRECTIVE DISCUSSION [facility] Start: 10-14-2021 DEPRESSION ASSESSMENT DEPRESSION ASS ESSMENT [facility] Start: 06-14-2021 Influenza vaccination INFLUENZA (#1) [facility] Start: 02-13-2018 PNEUMOCOCCAL: 65+ (3 - PPSV23 or PCV20) PNEUMOCOCCAL: 65+ (3 - PPSV23 or PCV20) [facility] Start: 01-16-2013 Urine microalbumin profile DTAP,TDAP ,TD (1 - Tdap) [facility] Start: 1999 Hepatitis B Vaccine (1 of 3 - Risk 3-dose series) Hepatitis B Vaccine (1 of 3 - Risk 3-dose series) [facility] Start: 1999 RSV Vaccine (1 - 1-d ose 60+ series) RSV Vaccine (1 - 1-dose 60+ series) [facility] Start: 1989 SHINGRIX VACCINE (1 of 2) BANKS GRIX VACCINE (1 of 2) [facility] Start: 1958 Hepatitis A Vaccine (1 of 2 - Risk 2-dose series) Hepatitis A Vaccine (1 of 2 - Risk 2-dose series) [facility] Start: 1958 SHINGRIX VACCINE (1 of 2) BANKS GRIX VACCINE (1 of 2) [facility] Start: 1957 MMR Vaccine (1 of 2 - Risk 2-dose series) MMR Vaccine (1 of 2 - Risk 2-dose series) [facility] Start: 1949 Meningococcal B Vacc ine: Consider Based On Risk (1 of 4 - Increased Risk) Meningococcal B Vaccine: Consider Based On Risk (1 of 4 - Increased Risk) [facility] End: 06-14-2024 Ct abdomen & pelvis w/contrast material CT ABD/PEL W IVCON Radiology Routine Malignant 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) 1 Occurrences starting 05/16/2023 until 06/14/2024 [facility] Work Phone: Comment on above: 1 Occurrences starti ng 05/16/2023 until 06/14/2024 End: 01-18-2025 CT Abdomen and Pelvis W contrast IV CT ABD/PEL W IVCON Radiology Routine Malignant neoplasm of urinary bladder, unspecified site (HCC) 1 Occurrences starting 12/20/2023 until 01/18/2025 [facility] Work Phone: Comment on above: 1 Occurrences starti ng 12/20/2023 until 01/18/2025 End: 01-18-2025 CT Chest W contrast IV CT CHEST W IVCON Radiology Routine Malignant neoplasm of urinary bladder, unspecified site (HCC) 1 Occurrences starting 12/20/2023 until 01/18/2025 [facility] Work Phone: Comment on above: 1 Occurrences starti ng 12/20/2023 until 01/18/2025 End: 06-14-2024 CT CHEST W IVCON CT CHEST W IVCON Radiology Routine Malignant 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) 1 Occurrences starting 05/16/2023 until 06/14/2024 [facility] Work Phone: Comment on above: 1 Occurrences starti ng 05/16/2023 until 06/14/2024 ECG COMPLETE ECG COMPLETE ECG Routine Pre-op evaluation 09/12/2022 11:47 AM EST [facility] Work Phone: REFERRAL FOR ADDITIO NAL BIOMARKER AND MOLECULAR TESTING REFERRAL FOR ADDITIONAL BIOMARKER AND MOLECULAR TESTING Lab Routine Malignant neoplasm of ureter, unspecified laterality (HCC) 12/03/2022 9:12 AM EST [facility] Work Phone: [facility] Immunizations Immunization Date Immunization Notes Care Provider Laurence chun 08-12-2023 zoster vaccine recombinant Chair Fam Work Phone: [facility] 02-26-2022 diphtheria, tetanus toxoids and pertussis vaccine Chair Fam Work Phone: [facility] 09-15-2021 SARS-CoV-2 (COVID-19 ) mRNA BNT-162b2 vatracey RODRIGUEZ [facility] 11-26-2020 SARS-CoV-2 (COVID-19 ) mRNA BNT-162b2 fred RODRIGUEZ [facility] 11-05-2020 SARS-CoV-2 (COVID-19 ) mRNA BNT-162b2 vax Jian RODRIGUEZ [facility] 08-09-2015 influenza nasal, unspecified formulation Chair Moose Work Phone: [facility] 08-09-2015 influenza virus vacc ine, unspecified formulation Jian JENNIFER [facility] 08-09-2015 influenza, intraderm al, quadrivalent, preservative free, injectable Soren Perea MD Work Phone: [facility] 01-07-2015 pneumococcal conjuga te vaccine, 13 valent Soren Perea MD Work Phone: [facility] 02-13-2013 pneumococcal polysaccharide vaccine, 23 valent Soren Perea MD Work Phone: [facility] 01-15-2013 tetanus and diphther ia toxoids, adsorbed, preservative free, for adult use (2 Lf of tetanus toxoid and 2 Lf of diphtheria toxoid) Jian RODRIGUEZ [facility] 01-15-2013 tetanus and diphther ia toxoids, adsorbed, preservative free, for adult use (5 Lf of tetanus toxoid and 2 Lf of diphtheria toxoid) Soren Perea MD Work Phone: [facility] Payers Date Payer Category Payer Private Health Insurance [facility] AARP SUPPLEMENT [id number] 2021-Present [phone] [address] [place] [address] Indemnity [id number] 2019 Medicare [id number] 2017 Private Health Insurance xxx [id number] 2005 Medicare MEDICARE MEDICAR E A AND B [id number] 2005-Present [phone] [place] [address] Medicare [id number] 2005 Medicare MEDICARE MEDICAR E A AND B [id number] 2005-Present [phone] [place] [address] Medicare [id number] 1959 Medicare [id number] 1959 Medicare [id number] 1959 Unknown [id number] 1939 Unknown [id number] 1939 Unknown [id number] 1939 Unknown [id number] 1939 Unknown [id number] 1939 Unknown [id number] 1939 Unknown [id number] 1939 Unknown [id number] 1939 Unknown [id number] 1939 Unknown [id number] Unknown Unknown [id number] Social History Date Type Detail Facility Start: 07-14-2018 End: 11-26-2022 Tobacco smoking status NHIS Ex-smoker [facility] Comment on above: patient quit smoking over 30 years ago End: 10-14-1970 History of tobacco use Current smoker [facility] End: 10-14-1970 History of tobacco use Cigarette Smoker [facility] Start: 07-14-2018 End: 02-19-2023 Cigarettes smoked current (pack per day) - Reported 1 [facility] Start: 07-14-2018 End: 11-26-2022 Tobacco use and exposure Smokeless tobacco non-user [facility] Start: 01-08-2022 End: 11-29-2023 Alcohol intake Current non-drinker of alcohol (finding) [facility] Start: 1940 Sex Assigned At Male [facility] Start: 12-29-2021 End: 09-12-2022 Exposure to SARS-CoV-2 (event) Not sure [facility] Start: 02-19-2023 End: 03-07-2023 Sex Assigned At [facility] History of tobacco use Passive smoker [facility] Tobacco smoking status Never [facility] Comment on above: patient quit smoking over 30 years ago Start: 09-28-2019 Gender identity Identifies as male gender (finding) [facility] Start: 09-28-2019 Sexual orientation Heterosexual (fin ding) [facility] Medical Equipment Procedure Code Equipment Code Equipment Origin al Text Equipment Identifier Dates Inlay Dunlo Ureteral Stent Kit 7f X 26cm [id number] Start: 10-29-2019 Stent Inlay Opti ma 7fr Taper Tonto [place] Green Polymer Phreecoat 24cm Ureteral - [id number] Start: 08-12-2019 Stent Inlay Opti ma 7fr Taper Tonto [place] Green Polymer Phreecoat 26cm Ureteral - [id number] Start: 09-30-2019 Stent Nicore Inl ay Dunlo 7fr Taper Tonto [place] Green Nitinol Polymer 24cm - [id number] Start: 10-26-2021 Stent Inlay Opti ma 6fr Taper Tonto [place] Green Polymer Phreecoat 24cm Ureteral - [id number] Start: 11-12-2022 Functional Status Date Assessment Result Facility 12-05-2022 Functional Status N/A [facility] Clinical Notes 07-08-2020 to 12-20-2023 Wayne Chavez APRN.SHINGLE PACKER - 12/20/2023 1:16 PM Jami Cannon MA - 12/20/2023 1:10 PM Caesar Rutledge MD - 11/29/2023 1:15 PM ESTPatient InstructionsPatient Instructions Note Date & Type Note Facility 12-20-2023 Note [facility] 12-20-2023 History of Present illness Narrative Images from the original note were not included. NAME: Daniel Juan Jose [facility] NO[facility] [id number] DATE OF SERVICE: December 20, 2023 ([place]) Some elements in this clinic [...] pacemaker was inserted on on 03/18/2023 at [facility] with Dr. Bautista. His shortness of breath [...] he is a poor candidate for chemotherapy, port graham based or otherwise. Surgery would yield him [...] Anesthesia Problems No Family History Wayne Chavez APRN.SHINGLE PACKER Hematology and Oncology Services Provided at: [place], [place] CC: Yoan Sneed MD [address] [facility] [phone] I spent a total of 30 minutes on the date of the service which included preparing to see the patient, [id number] patient care, completing clinical documentation, obtaining and/or reviewing separately obtained history, performing a medically appropriate examination, counseling and educating the patient/family/caregiver, ordering medications, tests, or procedures, independently interpreting results (not separately reported), and communicating results to the patient/family/caregiver. documented in this encounter [facility] 12-20-2023 Nurse Note Patient state that he has been losing weight, he has no desire to eat, nothing tastes good he has to force himself to eat. Jami Hernandez MA documented in this encounter [facility] 12-09-2023 Note [facility] Consult Note Reason for visit: S/P PPM hospital follow up 12/09/23: is here for hospital follow-up he was seen at [facility] for complaints of nausea and vomiting, his troponins were 0.07 he was recommended ischemic evaluation; patient declined when to be discharged> few days later he went to [facility] ER for the same complaints but no [...] moderate, relieved by rest. He was evaluated [facility] ED and his CBC, BMP, [...] 3.9, LFTs within (more content not included)... [facility] 12-09-2023 Note Patient here for [facility] ED in Oct 2023. He presented for nausea and vomiting. Troponins were elevated. Physican wanted to admit him for possible cardiac issues but patient wanted to be discharged. A few days later he presented to [facility] ED for same thing. Says Dr. Sneed [...] All other systems reviewed and are negative. [facility] 11-29-2023 Note [facility] 11-29-2023 History of Present illness Narrative Images from the original note were not included. NAME: Juan Jose [facility] NO.: [id number] DATE OF SERVICE: November 29, 2023 ([place]) Some elements in this clinic note that are critical to medical decision making have been carefully reviewed and included from a prior clinic note dated: October 10, 2023 ([place]) Referring Provider: Dr. Rita Bhatt Additional Clinicians [...] Wayne or Corazon RTC 6 weeks with co Labs same day HPI: CASE HISTORY: Reverse [...] pacemaker was inserted on on 03/18/2023 at [facility] with Dr. Bautista. His shortness of breath [...] he is a poor candidate for chemotherapy, port graham based or otherwise. Surgery would yield him [...] which included preparing to see the patient, yibh-wd-nvwr patient care, completing clinical documentation, performing a medically appropriate examination, counseling and educating the patient/family/caregiver, ordering medications, tests, or procedures, independently interpreting results (not separately reported), communicating results to the patient/family/caregiver, and care coordination (not separately reported). Caesar Vazquez MD, CPE Hematology and Oncology Services Provided at: [facility], [place], [place] Scribe Attestation: This note was scribed [...] my direction. CC: Yoan Sneed MD [address] [facility] [phone] documented in this encounter [facility] 11-29-2023 Instructions Jessica Pathak - 11/29/2023 1:14 PM EST Proceed with pembrolizumab cycle 13 today. Hydration today. Follow up in 3 weeks for continued treatment. Labs same day. See Wayne or Corazon RTC 6 weeks with me Labs same day documented in this encounter [facility] 11-22-2023 Miscellaneous Notes Patient has been rescheduled to 11/29 and notified. Thanks! Edwina Olson Voicemail message received from pt requesting to reschedule his missed appointment w/ Dr Vazquez. Clerical: Please call pt @ [phone] to schedule. Thanks! Margot So, SUNIL Pt still in need of f/u appointment. Call placed to pt. No answer. Message left requesting call back. Call placed to pt's spouse. No answer. Message left requesting call back. Margot So RN documented in this encounter [facility] 11-14-2023 Miscellaneous Notes Patient called, saying [...] appointments. HU Moore documented in this encounter [facility] 10-10-2023 Note [facility] 09-19-2023 Note [facility] 08-29-2023 Note [facility] 08-29-2023 History of Present illness Narrative Images from the original note were not included. NAME: Juan Jose Austin [facility] NO[facility] [id number] DATE OF SERVICE: August 29, 2023 ([facility]) Some elements in this clinic note that are critical to medical decision making have been carefully reviewed and included from a prior clinic note dated: July 18, 2023 ([place]). Referring Provider: Rita Bhatt Additional Clinicians involved [...] pacemaker was inserted on on 03/18/2023 at [facility] with Dr. Bautista. His shortness of breath [...] he is a poor candidate for chemotherapy, port graham based or otherwise. Surgery would yield him [...] which included preparing to see the patient, vwqi-eu-gemv patient care, completing clinical documentation, performing a medically appropriate examination, counseling and educating the patient/family/caregiver, ordering medications, tests, or procedures, independently interpreting results (not separately reported), communicating results to the patient/family/caregiver, and care coordination (not separately reported). Caesar Vazquez MD, CPE Hematology and Oncology Services Provided at: [place], [place] CC: No referring provider defined for this encounter. Yoan Sneed MD [address] [facility] [phone] documented in this encounter [facility] 08-29-2023 Instructions Caesar Vazquez MD - [...] restart his Keytruda. documented in this encounter [facility] 08-23-2023 Note [facility] 08-23-2023 Note [facility] 08-20-2023 Note [facility] Consult Note Reason for visit: S/P [facility] hospital follow up Date of Telehealth Visit: 08/20/23 The patient was notified that using 3rd libertarian telecommunication application (e.g., SuperTruper) is not HIPPA compliant and may carry some privacy risks. Yes The visit was conducted kxww-un-azue with the use of audio and video [...] moderate, relieved by rest. He was evaluated [facility] ED and his CBC, BMP, [...] significantly reduced left-ventr (more content not included)... [facility] 08-08-2023 Miscellaneous Notes FYI: Pt reports having [...] Margot So, RN documented in this encounter [facility] 07-18-2023 Note [facility] 07-18-2023 Instructions Caesar Vazquez MD - 07/18/2023 1:39 PM EDT Proceed with cycle 9 pembrolizumab today. In 3 weeks to for cycle 10. Labs prior No clinician RTC in 6 weeks prior to C11 Labs every [address] in 5 weeks documented in this encounter [facility] 07-18-2023 History of Present illness Narrative Images from the original note were not included. ONCOLOGY FOLLOW UP July 18, 2023 ([place]) Some elements in this clinic note that [...] pacemaker was inserted on on 03/18/2023 at [facility] with Dr. Bautista. His shortness of breath [...] he is a poor candidate for chemotherapy, port graham based or otherwise. Surgery would yield him [...] which included preparing to see the patient, phyg-cr-cmug patient care, completing clinical documentation, performing a medically appropriate examination, counseling and educating the patient/family/caregiver, ordering medications, tests, or procedures, independently interpreting results (not separately reported), communicating results to the patient/family/caregiver, and care coordination (not separately reported). Caesar Vazquez MD, CPE Hematology and Oncology Services Provided at: [place], [place] CC: No referring provider defined for this encounter. Yoan Sneed MD [address] [facility] [phone] documented in this encounter [facility] 06-27-2023 Note [facility] 06-27-2023 History of Present illness [...] pacemaker was inserted on on 03/18/2023 at [facility] with Dr. Bautista. His shortness of breath [...] he is a poor candidate for chemotherapy, port graham based or otherwise. Surgery would yield him [...] for cycle 9. Labs prior. Wayne Chavez APRN.[facility] Hematology and Oncology Services Provided at: [place], [place] I spent a total of 30 minutes on the date of the service which included preparing to see the patient, smov-le-qfft patient care, completing clinical documentation, obtaining and/or reviewing separately obtained history, performing a medically appropriate examination, counseling and educating the patient/family/caregiver, ordering medications, tests, or procedures, independently interpreting results (not separately reported), and communicating results to the patient/family/caregiver. documented in this encounter [facility] 06-18-2023 Note [facility] 06-18-2023 History of Present illness Narrative VIRTUAL VISIT PROGRESS NOTE This is a virtual visit using Audio only. It required patient-provider interaction for the medical decision making as documented below. I have communicated my name and active licensure. The patient's identity and physical location were verified at the time of this visit. Either the patient or their legal provider relations representative has been informed of the risks [...] Sandy Bhatt MD documented in this encounter [facility] 06-06-2023 Note [facility] 06-06-2023 History of Present illness Narrative Images from the original note were not included. ONCOLOGY FOLLOW UP June 06, 2023 ([place]) Some elements in this clinic note that are critical to medical decision making have been carefully reviewed and included from a prior clinic note dated: May 16, 2023 ([place]) PCP and other physicians involved in patient's [...] pacemaker was inserted on on 03/18/2023 at [facility] with Dr. Bautista. His shortness of breath [...] he is a poor candidate for chemotherapy, port graham based or otherwise. Surgery would yield him [...] which included preparing to see the patient, mvxf-cw-syen patient care, completing clinical documentation, performing a medically appropriate examination, counseling and educating the patient/family/caregiver, ordering medications, tests, or procedures, and independently interpreting results (not separately reported). Caesar Vazquez MD, CPE Hematology and Oncology Services Provided at: [place], [place] documented in this encounter [facility] 05-31-2023 Miscellaneous Notes Requested Prescriptions Pending Prescriptions Disp Refills tamsulosin (FLOMAX) 0.4 mg 30 capsule 5 Sig: Take 1 capsule by mouth once daily. DAUGHTER STATES PATIENT IS OUT OF PILLS documented in this encounter [facility] 05-31-2023 Note [facility] 05-31-2023 Note [facility] 05-16-2023 Note [facility] 05-16-2023 Instructions Caesar Vazquez MD - 05/16/2023 2:[address] CAP in 1 -2 weeks Reschedule appointment with Dr. Bhatt after CT. Proceed with cycle 6 pembrolizumab today. Follow up in 3 weeks to for cycle 7. Labs prior. Review Scans Hold Lasix for a few days to see if mouth improves. documented in this encounter [facility] 05-16-2023 History of Present illness Narrative Images from the original note were not included. ONCOLOGY FOLLOW UP May 16, 2023 ([place]) Some elements in this clinic note that [...] pacemaker was inserted on on 03/18/2023 at [facility] with Dr. Bautista. His shortness of breath [...] he is a poor candidate for chemotherapy, port graham based or otherwise. Surgery would yield him [...] which included preparing to see the patient, ytcc-my-oszz patient care, completing clinical documentation, performing a medically appropriate examination, counseling and educating the patient/family/caregiver, ordering medications, tests, or procedures, and independently interpreting results (not separately reported). Caesar Vazquez MD, CPE Hematology and Oncology Services Provided at: [place], [place] documented in this encounter [facility] 05-07-2023 Note HNO ID: [id number] Author: Rita Bhatt MD Service: ? Author Type: Physician Type: Progress Notes Filed: 05/25/2023 4:55 PM Note Text: s [facility] 05-07-2023 History of Present illness Narrative s documented in this encounter [facility] 05-06-2023 Note -hx of flutter -not on ac , on aspirin Does not want AC -no flutter since recommended for ablation per documentation -will monitor device for arrhythmia [facility] 05-06-2023 Note -s/p DC PPM -device check stable [facility] 05-06-2023 Note -stable -ct meds [facility] 05-06-2023 Note - NYHA I-2 GDMT: Losartan 50 mg, Toprol-XL 25 mg, Isordil 20 mg twice daily, hydralazine 25 mg 3 times daily, Lasix 20 mg daily, Lipitor 10 mg daily, aspirin 81 mg, amlodipine 10 mg -pending repeat echo, previously echo 04/05 EF 48% [facility] 04-26-2023 Note [facility] Consult Note Reason [...] moderate, relieved by rest. He was evaluated [facility] ED and his CBC, BMP, [...] failure treatment by (more content not included)... [facility] 04-26-2023 Note Review of Systems All other systems reviewed and are negative. [facility] 04-25-2023 Note [facility] 04-25-2023 History of Present illness [...] pacemaker was inserted on on 03/18/2023 at [facility] with Dr. Bautista. His shortness of breath [...] he is a poor candidate for chemotherapy, port graham based or otherwise. Surgery would yield him [...] APRN.CNP Hematology and Oncology Services Provided at: [place], [place] I spent a total of 30 minutes on the date of the service which included preparing to see the patient, dsoc-il-pgpd patient care, completing clinical documentation, obtaining and/or reviewing separately obtained history, performing a medically appropriate examination, counseling and educating the patient/family/caregiver, ordering medications, tests, or procedures, independently interpreting results (not separately reported), and communicating results to the patient/family/caregiver. documented in this encounter [facility] 04-04-2023 Note [facility] 04-04-2023 History of Present illness [...] pacemaker was inserted on on 03/18/2022 at [facility] with Dr. Bautista. His shortness of breath [...] he is a poor candidate for chemotherapy, port graham based or otherwise. Surgery would yield him [...] for cycle 5. Labs prior. Wayne Chavez APRN.SHINGLE PACKER Hematology and Oncology Services Provided at: [place], [place] I spent a total of 30 minutes on the date of the service which included preparing to see the patient, irpr-dq-zxyp patient care, completing clinical documentation, obtaining and/or reviewing separately obtained history, performing a medically appropriate examination, counseling and educating the patient/family/caregiver, ordering medications, tests, or procedures, independently interpreting results (not separately reported), and communicating results to the patient/family/caregiver. documented in this encounter [facility] 03-27-2023 Note Patient seen for wou nd check s/p [employer] pacemaker placement on 03/18/2023. Wound is [...] been scheduled for device and follow-up appointment. [facility] 03-19-2023 Note Hospital Medicine Discharge Summary Final Discharge Diagnosis: Syncope and collapse symptomatic bradycardia Admission Diagnosis: Syncope and collapse [R55] Hospital course: JuanJ ose Austin is a 82 y.o. male who [...] medication deferred to the outpatient follow-up with benefits consulting analyst. Dear Dr. Naren MD, Juan Jose is advised to follow up with you within 1-2 weeks. Follow-up with: Cardiology Scheduled appointments: Future Appointments Date Time Provider Department Center 03/27/2023 9:20 AM Dagoberto James NP [facility] 2023 10:00 AM Josesito Villanueva NP [facility] Your medication list START taking these medications [...] Your Medications These medications were sent to [facility] [id number] [facility] [address] [address]) [address] [address] doxycycline 100 mg capsule hydrALAZINE 25 mg [...] and/or family and (more content not included)... 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 Activities of Daily Living Living Arrangement (Current/Prior to Hospitalization) Private residence Discharge Planning Support Systems Spouse/significant other;Children Type of Residence/Post Acute Needs Private residence [facility] 03-19-2023 Note continuing left leg Cardiology Progress [...] Value Ventricular Rate 60 Atrial Rate 60 WA Interval 192 QRS DURATION 168 QT Interval 474 QTC CALCULATION(BAZETT) 474 P Wittenberg 30 R-Wittenberg 5 T Wave Wittenberg 263 Impression AV dual-paced rhythm Confirmed by [...] degree AV block, LBBB s/p dual chamber [employer] PPM placement. Syncope Compensated HFrEF 55% [...] stable lead thresholds Josesito Villanueva NP [facility] [id number] [facility] 03-19-2023 Note Physical Therapy Physical Therapy Evaluation Patient Name: Juan Jose Austin : 1940 Today's Date: 03/19/2023 Patient is an 82 y./o. male who was scheduled for a pacemaker implantation prior to an unwitnessed syncope episode. Patient was admitted to [facility] on 03/16/2023 and the pacemaker was implanted [...] History: Diagnosis Date Atrial flutter (CMS/HCC) Cancer ([facility]/HCC) Chronic systolic heart failure ([facility]/HCC) CKD (chronic kidney disease), stage III ([facility]) Hematuria Hypertension LBBB (left bundle branch block) [...] fractured hip last week and is in [facility] currently. Pt. reported daughter lives nearby and [...] Level of Function Prior Function Level of [place]: Independent with ADLs and functional transfers Prior [...] to your side (more content not included)... [facility] 03-19-2023 Note 03/19/23 0954 Admission Assessment Questions [...] link and activate MyChart? No (Status: pending) [facility] 03-18-2023 Note Hospital Medicine Daily Progress Note - 03/18/2023 3:12 PM; Room: 3129/3129-01 Admission: 03/16/2023 10:06 PM; Length of stay: 2 days THE HOSPITALIST TEAM PREFERS TO USE [employer] CHAT FOR COMMUNICATION 7AM-7PM. IF I DO NOT RESPOND WITHIN 15 MINUTES, PLEASE PAGE ME/CALL THROUGH THE FUNERAL PREARRANGEMENT COUNSELOR. FROM 7PM-7AM, PLEASE PAGE [phone](COVR) Code Status: Full Code Discharge Destination: home [...] breakfast heparin (porcine), 5,000 Units, subcutaneous, q12h BRXATON hydrALAZINE, 25 mg, oral, TID isosorbide dinitrate, [...] LDL 84 03/16/2023 No results found for: [id number], IRON, TIBC, C3, C4, KODY, CANCA, ASO, PSA, CEA, CA125, CA199, AFP, CA153 Imaging Electrophysiology procedure Narrative: Images from the original result were not included. DUAL CHAMBER PACEMAKER IMPLANT PROCEDURE NOTE DATE OF PROCEDURE: 03/18/2023 PERFORMING PHYSICIAN: Dr. Jimbo Bautista CHEMICAL OPERATOR: Dr John Quiroga CONSENT: Patient LOCATION: EP Lab PROCEDURE PERFORMED: 1. Implantation of pacemaker ([employer]) 2. Ultrasound guided venous access INDICATIONS: [...] unwitnessed syncopal episode and was admiited to [facility]. On evaluation, the patient was having heart rates in the 20s to 30s with symptoms and transferred to [facility]. He was started on a dopamine drip for bradycardia and it elevated his heart rates into the 40s. PROCEDURAL DETAILS: (more content not included)... [facility] 03-18-2023 Note Attestation signed by Brandie Michel MD at 03/18/2023 12:51 PM I did not personally examine the patient. I discussed the case with the resident/fellow Dr Blas. Teaching Physician's Revisions: Brandie Michel MD, MPH, [facility], [facility], [facility] Interventional Cardiology Pager Email: [email or web address] Cardiology Progress Note Subjective Subjective: [...] Value Ventricular Rate 39 Atrial Rate 39 WA Interval 342 QRS DURATION 156 QT Interval 504 QTC CALCULATION(BAZETT) 405 P Wittenberg 17 R-Wittenberg -84 T Wave Wittenberg 10 Impression Marked sinus bradycardia with 1st [...] PROCEDURE: 03/18/2023 PERFORMING PHYSICIAN: Dr. Jimbo Bautista CHEMICAL OPERATOR: Dr John Quiroga CONSENT: Patient LOCATION: EP Lab PROCEDURE PERFORMED: 1. Implantation of pacemaker ([employer]) 2. Ultrasound guided venous access INDICATIONS: [...] unwitnessed syncopal episode and was admiited to [facility]. On evaluation, the patient was having heart rates in the 20s to 30s with symptoms and transferred to [facility]. He was started on a dopamine drip [...] access was o (more content not included)... [facility] 03-18-2023 Note Transport at bedside to take pt down to xray- typically xray is not completed until the AM after pacemaker insertion- Called Dr. Blas functional skills tutor- okay to send down now. [facility] 03-18-2023 Note Patient back from EP lab with new pacer and hooked up to monitor- vitals obtained. Patient has a few medications auto held- all from Dr. Blas with cardiology. RN called functional skills tutor at this time- continue to hold meds- only giving asa, iron tablet, and flomax at this time. Hold heparin subcutaneous and all other auto held medications- will re-evaluate in the afternoon. RN to follow up. [facility] 03-18-2023 Note DUAL CHAMBER PACEMAK ER IMPLANT PROCEDURE NOTE DATE OF PROCEDURE: 03/18/2023 PERFORMING PHYSICIAN: Dr. Jimbo Bautista CHEMICAL OPERATOR: Dr John Quiroga CONSENT: Patient LOCATION: EP Lab PROCEDURE PERFORMED: 1. Implantation of pacemaker ([employer]) 2. Ultrasound guided venous access INDICATIONS: [...] unwitnessed syncopal episode and was admiited to [facility]. On evaluation, the patient was having heart rates in the 20s to 30s with symptoms and transferred to [facility]. He was started on a dopamine drip for bradycardia and it elevated his heart rates into the 40s. PROCEDURAL DETAILS: : Nestor was brought to the EP lab in [...] using modified seldinger technique using a 5 Somali micro-puncture needle on two occasions and 0.35 [...] pocket was created for the device. 9/6 Somali Safesheaths were placed over the wire. An active fixation [employer] pacing lead was then delivered through the SPCC sheath via 9Fsheath to the right ventricle. After confirmation of lead position on orthogonal views (HESTER and DIVEHI) to confirm septal position, the screw was activated, and the lead was placed in the right ventricular mid cavity towards the septum. After confirmation of good sensing parameters, injury pattern and pacing thresholds, 10V pacing was done and no diaphragmatic stimulation was noted. It was then secured in the pocket using three 1-0 Silk sutures. Then an active fixation [employer] lead was delivered through the 6Fsheath to the right atrial appendage. After confirmation of lead position on orthogonal views (HESTER and DIVEHI), the screw was activated. After confirmation of [...] 100mg bid. Jimbo Bautista MD Cardiac Electrophysiology [facility] 03-18-2023 Note Patient: Juan Jose Austin Procedure Information Date/Time: 03/18/231499 Procedure: Implant PPM Location: [facility] PROJECT MANAGEMENT DIRECTOR 1 / [facility] (Cath) Providers: Jimbo Bautista MD [...] Plan discussed with attending. Additional Equipment Requests [facility] 03-18-2023 Note Patient down to EP l ab for pacemaker at this time. [facility] 03-18-2023 Note RN called daughter a t this time-per EP lab and cardiology- moving up patient first for pacer and coming to grab patient in about a half hour. Daughter states she will make it up as soon as she can. [facility] 03-18-2023 Note RN called cardiology at this time regarding orders for dopamine gtt and patient's HR. Orders are to titrate for BP not for HR. Patient's heart rate this morning has ranged from high 20's to high 30's- averaging around 35 BPM. functional skills tutor said do not titrate gtt- keep at 5 mcg/kg/min at this time and are trying to move patient up on the list for a pacer. RN to relay message to patient and to call if moving up in time. [facility] 03-17-2023 Note Hospital Medicine Daily Progress Note - 03/17/2023 10:00 AM; Room: [address] [place] [address] Admission: 03/16/2023 10:06 PM; Length of stay: 1 days THE HOSPITALIST TEAM PREFERS TO USE [employer] CHAT FOR COMMUNICATION 7AM-7PM. IF I DO NOT RESPOND WITHIN 15 MINUTES, PLEASE PAGE ME/CALL THROUGH THE FUNERAL PREARRANGEMENT COUNSELOR. FROM 7PM-7AM, PLEASE PAGE [phone](COVR) Code Status: Full Code Discharge Destination: home [...] LDL 84 03/16/2023 No results found for: [id number], IRON, TIBC, C3, C4, KODY, CANCA, ASO, [...] Sung. Discharge Planning Signed Miguel San MD [facility] Medicine 03/17/2023 10:00 AM [facility] 03-17-2023 Note . Hospital Medicine History and Physical 03/16/2023 11:16 PM THE HOSPITALIST TEAM PREFERS TO USE [employer] CHAT FOR COMMUNICATION 7AM-7PM. IF I DO NOT RESPOND WITHIN 15 MINUTES, PLEASE PAGE ME/CALL THROUGH THE FUNERAL PREARRANGEMENT COUNSELOR. FROM 7PM-7AM, PLEASE PAGE [phone](COVR) Chief Complaint No chief complaint on file. [...] syncopal episod CKD. 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 Pa (more content not included)... [facility] 03-15-[address] Andreina hassan and he recommended perm Pacemaker- orders sent and d/w pt and daughter= provided pt education pamphlet for Pacemaker that reviewed indications, risks vs benefits of procedure and pt voiced understanding and is agreeable with proceeding with PPM [facility] 03-15-2023 Note Hypertension is cont rolled Continue med regime [facility] 03-15-2023 Note Noted bradycardia, w ith 1st AV block, 2:1 AV block, NSVT 3 and 5 beat run with syncopal episode and near syncopal episodes. Pt is unsure if he has stopped toprol- therefore d/w them to stop Toprol. D/W Dr Barry and plan for perm pacemaker implant MONTRELL in light of syncope [facility] 03-15-2023 Note [facility]TP CARDIOLOGY PROGR ESS NOTE [...] me. He was evaluated in ED at [facility], and Dr Sneed had a 7 day [...] moderate, relieved by rest. He was evaluated [facility] ED and his CBC, BMP, BNP, Liver [...] At last visi (more content not included)... [facility] 03-15-2023 Note Patient here for [facility] for syncopal event. He did wear [...] All other systems reviewed and are negative. 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 Pt reports that his dyspnea is only on exertion. Denies feeling short of breath at rest. Pt was outside working in his flower beds and mulching during our call. Margot So RN * Telephone Encounter - Mary Jo Trini Fierro Sec - 01/31/2023 8:[address] Antwan Johnson would like you to call Juan Jose next week. 02-07 to check symptoms. Thank you documented in this encounterToledo Hospital04-20-2023 NoteHNO ID: [id number] Author: Padmini Mike RN Service: ? Author Type: Registered Nurse Type: Progress Notes Filed: 01/31/2023 10:35 AM Note Text: No labs today per Dr. Vazquez. Padmini Mike [facility]04-20-2023 [facility]04-20-2023 History of Present illness Narrative* Padmini Mike RN - 01/31/2023 9:22 AM EDT No labs today per Dr. Vazquez. Padmini Mike RN documented in this encounterToledo Hospital04-20-2023 Instructions* Patient Instructions* Caesar Vazquez MD - 01/31/2023 8:50 AM EDT Resume C2 pembrolizumab today. RTC in 3 weeks Ask Ms. So to call next week to heck symptoms documented in this encounterToledo Hospital04-20-2023 History of Present illness Narrative* Caesar Vazquez MD - 01/31/2023 8:44 AM EDT Images from the original note were not included. ONCOLOGY FOLLOW UP January 31, 2023 (George) Some elements in this clinic note that [...] he is a poor candidate for chemotherapy, port graham based or otherwise. Surgery would yield him [...] which included preparing to see the patient, xgze-[id number] patient care, completing clinical documentation, performing a medically appropriate examination, counseling and educating the patient/family/caregiver, ordering medications, tests, or p rocedures, communicating with other HCPs (not separately reported), independently interpreting results (not separately reported), and communicating results to the patient/family/caregiver. Caesar Vazquez MD, CPE Hematology and Oncology Services Provided at: [place], [place] documented in this encounterToledo Hospital04-12-2023 NoteA[facility]04-12-2023 NoteA[facility]03-28-2023 Miscellaneous Notes * Telephone Encounter [...] protocol. Margot So RN documented in this encounterToledo Hospital03-22-2023 NoteAdena [facility]03-22-2023 Instructions* Patient Instructions* Caesar Vazquez MD - 01/02/2023 3:18 PM EDT Start Keytruda q 3 weeks Labs same day. RTC 3 weeks with Wayne / Corazon C2 documented in this encounterToledo Hospital03-22-2023 History of Present illness Narrative* Caesar Vazquez MD - 01/02/2023 3:11 PM EDT Images from the original note were not included. ONCOLOGY FOLLOW UP January 02, 2023 (George) Some elements in this clinic note that are critical to medical decision making have been carefully reviewed and included from a prior clinic note dated: December 24, 2022 (George) PCP and other physicians involved in patient's [...] he is a poor candidate for chemotherapy, port graham based or otherwise. Surgery would yield him [...] which included preparing to see the patient, thhl-ev-pjxz patient care, completing clinical documentation, obtaining and/or reviewing separately obtained history, counseling and educating the patient/family/caregiver, ordering medications, edin ts, or procedures, independently interpreting results (not separately reported), and communicating results to the patient/family/caregiver. Caesar Vazquez MD, CPE Hematology and Oncology Services Provided at: [place], [place] documented in this encounterToledo Hospital03-22-2023 Nurse Note* Liberty Hayes - 01/02/2023 3:08 PM EDT Pt requested recent blood work faxed to Dr. Sneed. Faxed via [employer]. Liberty Hayes documented in this encounterToledo Hospital03-20-2023 NoteAdena [facility] Center03-20-2023 History of Present illness Narrative* [...] Spent: 25 minutes REFERRAL (RECOMMENDATION): N/A Margot Sessler, RN documented in this encounterToledo Hospital03-08-2023 Miscellaneous Notes* Telephone Encounter - Jimbo Alarcon MD - 12/19/2022 8:54 AM EST Patient cancelled Nephrology appt for 12/20/22. Called patient, plan to get labs in the coming days to ensure continued improvement of Cr. documented in this encounterToledo Hospital03-06-2023 Miscellaneous Notes* Telephone Encounter - Lauren Lee Sec - 12/17/2022 11:21 AM EST Called patient and r/s to next week * Telephone Encounter - Lauren Mckeon RN - 12/17/2022 11:15 AM EST Pt's caris testing has not been resulted yet. Please call pt and reschedule to next week per Dr Moncada's request. Thanks Lauren Mckeon RN documented in this encounterToledo Hospital02-22-2023 Hospital Discharge instructions Patient Education 12/05/2022 [...] cells. Follow these instructions at home: Take rtqm-vfh-ksjsixy and prescription medicines only as told by [...] is important. Where to find more information [place] [employer]: www.cancer.org National Cancer [place] (NCI): www.cancer.gov Contact a health care provider [...] 10/02/2004 Document Revised: 09/12/2018 Document Reviewed: 09/03/2017 [employer] Patient Education 2020 [employer]. Follow Up Care 11/23/2022 15:08:18 With:JENNIFER FOUNTAIN, Jian Lee, URL Address: [facility] [address] [place] [address]- When: Unknown [facility] [phone] Instructions* Patient Instructions* Caesar Vazquez MD - 11/26/2022 9:29 AM EST 1. Virtual visit 3 weeks after discussion with Dr. Bhatt and consideration of molecular studies. 2. AP Mol. documented in this encounterToledo Hospital02-13-2023 History of Present illness Narrative* Caesar Vazquez MD - 11/26/2022 8:53 AM EST Images from the original note were not included. ONCOLOGY FOLLOW UP November 26, 2022 (George) Some elements in this clinic note that [...] CPE Hematology and Oncology Services Provided at: [place], [place] I spent a total of 40 minutes on the date of the service which included preparing to see the patient, ontm-fs-iuvc patient care, completing clinical documentation, obtaining and/or reviewing separately obtained history, performing a medically appropriate examination, counseling and educating the pat ient/family/caregiver, ordering medications, tests, or procedures, independently interpreting results (not separately reported) and communicating results to the patient/family/caregiver. documented in this encounterToledo Hospital02-13-2023 Nurse Note* Jami Hernandez MA - 11/26/2022 8:47 AM EST Patient was recently [facility] the [facility]), he will havehis ureteral stent removed locally by Dr. Rodriguez. Jami Hernandez MA documented in this encounterToledo Hospital02-07-2023 History of Present illness Narrative* Rita [...] he would probably be best off recieving terminal operations supervisor immunotherapy or other systemic therapy. We could [...] complete. Rita Bhatt MD documented in this encounterToledo Hospital11-30-2022 History of Present illness Narrative* Nicholas Saenz MD - 09/12/2022 2:45 PM EST [facility] PRE-OP NOTE Patient [...] surgery pending LABS, IMPACT documented in this encounterToledo Hospital11-30-2022 History and physical note * Fatimah [...] fevers. Neuro: No history of TIA's, stroke, MEDICAL VOUCHER CLERK tumor, impaired sensorium, hemiplegia, paraplegia or quadraplegia. No neurological symptoms or problems. Respiratory: No history of current cough or dyspnea, or pneumonia in the past 6 weeks. No history of respiratory/pulmonary symptoms or problems. Cardiovascular: Negative for Recent IL, Angina, Arrhythmia, CAD, Chest Pain, PVD, Valvular Heart Disease, DVT/PE+HTN, +HF Follows with cardiology Dr. Casey Castanead GI: Negative for PUD, Nausea, Vomiting, Abdominal [...] BLOCK ABNORMAL ECG ECHO 02/27/22 scanned into [employer] Assessment/Plan Hypertensive heart disease with heart failure (HCC) -BP elevated in office 171/70, 170/72, patient reports he has not taken any of his medications yet today -denies cardiac symptoms -EF 55% on echo 02/2022 scanned into [employer] -on hydralazine, losartan, isosorbide dinitrate, and Jardiance [...] service. Requested most recent office note from benefits consulting analyst, Dr. Mason Castaneda. Planned Anesthetic: General Instructions Given to Patient: Instructions located in the after visit summary. Patient given verbal and written preop instructions and voices comprehension and compliance. SIGNATURE: Fatimah Salcedo PA-C PATIENT NAME: Juan Jose Austin DATE: September 12, 2022 TIME: 11:37 AM documented in this encounterToledo Hospital11-30-2022 Instructions* Patient Instructions* Fatimah Salcedo PA-C - 09/12/2022 11:21 AM EST PATIENT PREOPERATIVE INSTRUCTIONS Rita Bhatt MD has scheduled you for your procedure at this surgery center: [facility] [place] Scheduling Office: [phone] --[address] [place] [address]. Please read below carefully for your personalized [...] Procedures: - YOU MUST HAVE A RESPONSIBLE DATA REPORTING ANALYST TAKE YOU HOME. A PARTY CHIEF OR FEEDER CATCHER CANNOT BE MADE A RESPONSIBLE DATA REPORTING ANALYST. - We recommend that a responsible person [...] call the Saturday before. Your surgeon s equipment scheduler will tell you what time to call the office. - If you have not reached the departmental equipment scheduler by 5 P.M., call [phone] after 5 P.M. the day before your surgery. Please be aware that emergency situations arise, which may delay or change your surgical time. If this happens, we will notify you as soon as possible and regret any inconvenience. If you already have an Advance Directive, please fax a copy to [phone] or email to for it to be [...] day. Fatimah Salcedo PA-C documented in this encounterToledo Hospital10-17-2022 Evaluation note* Encounter Date Diagnosis Assessment Notes Treatment Notes Treatment Clinical Notes Jul, Left sided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 (ICD-10 - K51.50) [facility] Other 06-13-2022 History of Present illness Narrative* Jimmy Tejada PA-C - 03/26/2022 5:41 PM EDT This Team Access Model visit is a virtual encounter. It required patient- provider interaction for the medical decision making as documented below. Chief complaint: Preop teaching [facility] PRE-OP NOTE Juan [...] minutes Jimmy Tejada PA-C documented in this encounterToledo Hospital05-31-2022 History of Present illness Narrative* Rita Bhatt MD - 03/13/2022 2:10 PM EDT VIRTUAL VISIT PROGRESS NOTE This is a virtual visit using [employer] video visit. It required patient-provider interaction for [...] [place] (Hem/onc). Started gemcitabine and carboplatin on 2-14-22 with good tolerance. Completed 4 cycles on [...] 1 tablet by mouth once daily. Fish Oil-Amanda-3 Fatty Acids (FISH OIL) 300-1,000 mg cap [...] the date of the service which included [id number] patient care, completing clinical documentation, obtaining and/or reviewing separately obtained history and counseling and educating the patient/family/caregiver Scribe Attestation: By signing my name below, Gely Roman, attest that this documentation has been prepared [...] complete. Rita Bhatt MD [facility]* Encounter Date Diagnosis Assessment Notes Treatment Notes Treatment Clinical Notes February, Left sided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 (ICD-10 - K51.50) PATIENT TO CONTINUE ON THE MEDICATION DIRECTED. 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 documented [facility]05-[facility] History of Present illness Narrative* Corazon [...] weeks. Corazon Maxwell PA-C documented in this encounterTol[facility]05-02-[facility]22 History of Present illness Narrative* Soren [...] which included preparing to see the patient, [id number] patient care, completing clinical documentation, obtaining and/or reviewing separately obtained history, performing a medically appropriate examination, counseling and educating the pat ient/family/caregiver, ordering medications, tests, or procedures, independently interpreting results (not separately reported) and communicating results to the patient/family/caregiver. documented in [facility] encounterT[facility]04-25-[facility]22 History of Present illness Narrative* Soren Perea [...] which included preparing to see the patient, [id number] patient care, completing clinical documentation, obtaining and/or reviewing separately obtained history, performing a medically appropriate examination, counseling and educating the pat ient/family/caregiver, ordering medications, tests, or procedures, independently interpreting results (not separately reported) and communicating results to the patient/family/caregiver. documented in this encounterT[facility]04-11-2022 History of Present illness Narrative* Belia Martínez RN - 01/22/2022 1:27 PM EDT . documented in this encounterToledo [facility]04-04-2022 History of Present illness Narrative* Irma Ariza RN - 01/15/2022 1:38 PM EDT . documented in this encounterT[facility]04-04-2022 History of Present illness Narrative* Corazon [...] 8. Corazon Maxwell PA-C documented in this encounterToledo [facility]03-28-2022 History of Present illness Narrative* Soren [...] Blood work today shows platelet count of [id number]. I will hold treatment today and continue with cycle 3 day 1 in a week. The plan is to repeat endoscopy evaluation after 3-6 cycles of chemotherapy based on tolerance. Soren Perea MD I spent a total of 20 minutes on the date of the service which included preparing to see the patient, [id number] patient care, completing clinical documentation, obtaining and/or reviewing separately obtained history, performing a medically appropriate examination, counseling and educating the pat ient/family/caregiver, ordering medications, tests, or procedures, independently interpreting results (not separately reported) and communicating results to the patient/family/caregiver. documented in this encounterT[facility]09-25-2020 History of Present illness Narrative* Linda Piña (Lu)LU - 07/08/2020 11:20 AM EDT Radiology Service [...] 2020 TIME: 11:15 AM documented in this encounterT[facility] note Future Appointments Appointment Date:12/18/2022 01:00:00 PM Scheduled Provider:Jian RODRIGUEZ MD Location:[facility] Moose Appointment Type:URO Procedure 15 min [facility] Cristel evaluation note* Diagnosis Malignant neoplasm of ureter, unspecified laterality (HCC)- Primary documented in this encounter [facility] note* Diagnosis Malignant neoplasm of ureter, unspecified laterality (HCC)- Primary documented in this encounter [facility] note* Diagnosis Malignant neoplasm of ureter, unspecified laterality (HCC)- Primary documented in this encounter [facility] note* Diagnosis Malignant neoplasm of ureter, unspecified laterality (HCC)- Primary documented in this encounter [facility] note* Diagnosis Malignant neoplasm of ureter, unspecified laterality (HCC)- Primary documented in this encounter [facility] note* Diagnosis Malignant neoplasm of ureter, unspecified laterality (HCC)- Primary documented in this encounter [facility] note* Diagnosis Malignant neoplasm of ureter, unspecified laterality (HCC)- Primary documented in this encounter [facility] note* Diagnosis Malignant neoplasm of ureter, unspecified laterality (HCC)- Primary documented in this encounter [facility] note* Diagnosis Urothelial carcinoma (HCC)- Primary Other malignant neoplasm without specification of site Urothelial carcinoma (HCC) Other malignant neoplasm without specification of site documented in this encounter [facility] note* Diagnosis Urothelial carcinoma (HCC)- Primary Other malignant neoplasm without specification of site Urothelial carcinoma (HCC) Other malignant neoplasm without specification of site documented in this encounter [facility] note* Diagnosis 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, unspecified laterality (HCC)- Primary Acute cystitis without hematuria Acute cystitis documented in this encounter [facility] note* Diagnosis Urothelial carcinoma (HCC)- Primary Other malignant neoplasm without specification of site Urothelial carcinoma (HCC) Other malignant neoplasm without specification of site documented in this encounter [facility] note* Diagnosis Pre-op evaluation- Primary Preoperative examination, unspecified Hypertensive heart disease with heart failure (HCC) 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 Gastro-esophageal reflux disease without esophagitis Esophageal reflux 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 Stage 3 chronic kidney disease, unspecified whether stage 3a or 3b CKD (HCC) 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, 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, except renal pelvis (HCC) Malignant neoplasm of kidney, except pelvis Malignant neoplasm of urinary bladder, unspecified site (HCC) [facility]* Diagnosis Urothelial carcinoma (HCC)- Primary Other malignant neoplasm without specification of site Malignant neoplasm of right kidney, except renal pelvis (HCC) Malignant neoplasm of kidney, except pelvis Malignant neoplasm of urinary bladder, unspecified site (HCC) [facility]* Diagnosis Screening for genitourinary condition Screening for other and unspecified genitourinary condition Malignant neoplasm of right kidney, except renal pelvis (HCC) Malignant neoplasm of kidney, except pelvis Malignant neoplasm of urinary bladder, unspecified site (HCC) documented in this encounter [facility] note* Diagnosis 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, unspecified laterality (HCC)- Primary documented in this encounter [facility] noteNo [employer] Other Evaluation note* Diagnosis CELSO (acute kidney injury) (HCC)- Primary Acute kidney failure, unspecified documented in this encounter [facility] note* Diagnosis 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 Malignant neoplasm of other specified sites of bladder documented in this encounter [facility] note* Diagnosis 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 Malignant neoplasm of other specified sites of bladder Malignant neoplasm of right kidney, except renal pelvis (HCC) Malignant neoplasm of kidney, except pelvis Malignant neoplasm of ureter, unspecified laterality (HCC) documented in this encounter [facility] note* Diagnosis 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 Malignant neoplasm of other specified sites of bladder Malignant neoplasm of ureter, unspecified laterality (HCC) documented in this encounter [facility] note* Diagnosis 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 Malignant neoplasm of other specified sites of bladder [facility]* Diagnosis Malignant neoplasm of overlapping sites [...] malaise and fatigue [facility] [...] [facility] Diagnosis Urothelial cancer (HCC)- Primary Malignant neoplasm of other specified sites of urinary organs [facility] Diagnosis 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 Malignant neoplasm of other specified sites of bladder Malignant neoplasm of ureter, unspecified laterality (HCC) Malaise and fatigue Other malaise and fatigue [facility] [...] malaise and fatigue [facility] Diagnosis 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 Malignant neoplasm of other specified sites of bladder CKD (chronic kidney disease), stage V (HCC) Chronic kidney disease, Stage V Abnormal weight loss Loss of weight Malignant neoplasm of urinary bladder, unspecified site (HCC) documented in this encounter [facility] general Narrative - Reported* Type Description Date Medical History colitis Medical History hyperlipidemia Medical History HTN Medical History KIDNEY CANCER Surgical History KIDNEY REMOVED [facility] [employer] Other History general Narrative - Reported* Type Description Date Medical History colitis Medical History hyperlipidemia Medical History HTN Medical History KIDNEY CANCER Surgical History KIDNEY REMOVED Hospitalization History No Hospitalization histo ry information [facility] Other Hospital course Narrative No data available for this section [facility] [employer] Progress note No data available for this section [facility] [employer] Reason for referral (narrative)* Outpatient Procedure (Routine) - Pending Review Specialty Diagnoses / Procedures Referred By Brian camacho Referred To Contact [facility] [place] Diagnoses 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, unspecified laterality (HCC) Procedures ECG COMPLETE ECG ROUTINE ECG W/LEAST 12 LDS W/I&R Rita Bhatt MD [facility] [address] [facility] [address] [address] Referral ID Status Reason Start Date Expiration Date Visits Requested Visits Authorized [id number] Pending Review Auto-Generat ed Referral 03/13/2022 03/13/2023 1 1 [facility] for referral (narrative)* Outpatient Procedure (Routine) - Closed Specialty Diagnoses / Procedures Referred By Brian camacho Referred To Contact [facility] [place] Diagnoses Pre-op evaluation Procedures ECG COMPLETE ECG ROUTINE ECG W/LEAST 12 LDS W/I&R Fatimah Salcedo PA-C [address] [place] [id number] [facility] [place] [id number] Referral ID Status Reason Start Date Expiration Date V isits Requested Visits Authorized [id number] Closed Auto-Generate d Referral 09/12/2022 09/12/2023 1 1 [facility] Summary Purpose Family History No Family History Records FoundNo Family History Records FoundNo Family History Records FoundNo Family History Records FoundNo Family History Records FoundNo Family History Records FoundNo Family History Records Found Advance Directives No Advanced Directives Records FoundDocuments on File Type Date Recorded Patient [employer] Expl anation Advance Directive(s) 11/01/2021 2:32 PM Advance Directive(s) 10/28/2019 10:37 AM Advance Directive(s) 09/30/2019 10:07 AM Advance Directive(s) 09/15/2019 2:16 PM Advance Directive(s) 08/11/2019 11:16 AM Advance Directive(s) 08/11/2019 11:21 AM Documents on File Type Date Recorded Patient [employer] Expl anation Advance Directive(s) 11/01/2021 2:32 PM Advance Directive(s) 10/28/2019 10:37 AM Advance Directive(s) 09/30/2019 10:07 AM Advance Directive(s) 09/15/2019 2:16 PM Advance Directive(s) 08/11/2019 11:16 AM Advance Directive(s) 08/11/2019 11:21 AM Documents on File Type Date Recorded Patient [employer] Expl anation Advance Directive(s) 03/14/2022 4:48 PM Advance Directive(s) 11/01/2021 2:32 PM Advance Directive(s) 10/28/2019 10:37 AM Advance Directive(s) 09/30/2019 10:07 AM Advance Directive(s) 09/15/2019 2:16 PM Advance Directive(s) 08/11/2019 11:16 AM Advance Directive(s) 08/11/2019 11:21 AM Documents on File Type Date Recorded Patient [employer] Expl anation Advance Directive(s) 03/14/2022 4:48 PM Advance Directive(s) 11/01/2021 2:32 PM Advance Directive(s) 10/28/2019 10:37 AM Advance Directive(s) 09/30/2019 10:07 AM Advance Directive(s) 09/15/2019 2:16 PM Advance Directive(s) 08/11/2019 11:16 AM Advance Directive(s) 08/11/2019 11:21 AM Documents on File Type Date Recorded Patient [employer] Expl anation Advance Directive(s) 05/04/2022 1:37 PM Advance Directive(s) 03/14/2022 4:48 PM Advance Directive(s) 11/01/2021 2:32 PM Advance Directive(s) 10/28/2019 10:37 AM Advance Directive(s) 09/30/2019 10:07 AM Advance Directive(s) 09/15/2019 2:16 PM Advance Directive(s) 08/11/2019 11:16 AM Advance Directive(s) 08/11/2019 11:21 AM Documents on File Type Date Recorded Patient [employer] Expl anation Advance Directive(s) 08/11/2019 11:21 AM Documents on File Type Date Recorded Patient [employer] Expl anation Advance Directive(s) 08/11/2019 11:21 AM [...] Approx Total Volume: mL EXP:_ 02/13/22 @ 2000 Hazardous Chemotherapy Drug: Use appropriate PPE. Antineoplastic [...] over 30 Minutes, ONCE, 1 dose, On Sat04/04/23 at 1130, Approx Total Volume: 66 mL [...] 1400, Approx Total Volume: 66 mL EXP: 04/25/231999 Administer with 0.2 micron filter. New Bag/Syringe/Bottle [...] COMPUTED TOMOGRAPHY THORAX W/CONTRAST Caesar Vazquez MD [address] [place] [address] Ct Imaging Referral ID Status Reason Start Date Expiration Date Visits Requested Visits Authorized [id number] Authorized Auto-Generat ed Referral 05/16/2023 06/14/2024 1 1 Specialty Diagnoses / Procedures Referred By Contac t Referred To Contact CT IMAGING Diagnoses Malignant 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) Procedures CT ABD/PEL W IVCON CT ABD & PELVIS W/CONTRAST Caesar Vazquez MD [address] [place] [address] Ct Imaging Referral ID Status Reason Start Date Expiration Date Visits Requested Visits Authorized [id number] Authorized Auto-Generat ed Referral 05/16/2023 06/14/2024 1 1 Additional Source Comments (unrecognized sect ion and content) No Status Records FoundNo Status Records FoundNo Status Records FoundNo Status Records FoundNo Status Records FoundNo Status Records FoundNo Status Records Found INFORMATION SOURCE (unrecogn ized section and content) DATE CREATED AUTHOR 04/30/2018 [facility] DATE CREATED AUTHOR AUTHOR'S ORGANIZ ATION 03/06/2019 [facility] DATE CREATED AUTHOR AUTHOR'S ORGANIZ ATION 03/24/2023 [facility] DATE CREATED AUTHOR AUTHOR'S ORGANIZ ATION 04/27/[address] [facility] DATE CREATED AUTHOR AUTHOR'S ORGANIZ ATION 11/03/2023 [facility] DATE CREATED AUTHOR AUTHOR'S ORGANIZ ATION 12/26/2023 [facility] DATE CREATED AUTHOR AUTHOR'S ORGANIZ ATION 01/04/2024 [facility] Source Comments (unrecognize d section and content) In the event this informatio n is protected by the Federal Confidentiality of Alcohol and Drug Abuse Patient Records regulations: The Federal rules restrict any use of the information to criminally investigate or prosecute any alcohol or drug abuse patient.[facility] HospitalIn the event this information is protected by the Federal Confidentiality of Alcohol and Drug Abuse Patient Records regulations: The Federal rules restrict any use of the information to criminally investigate or prosecute any alcohol or drug abuse patient.[facility] HospitalIn the event this information is protected by the Federal Confidentiality of Alcohol and Drug Abuse Patient Records regulations: The Federal rules restrict any use of the information to criminally investigate or prosecute any alcohol or drug abuse patient.[facility] HospitalIn the event this information is protected by the Federal Confidentiality of Alcohol and Drug Abuse Patient Records regulations: The Federal rules restrict any use of the information to criminally investigate or prosecute any alcohol or drug abuse patient.[facility] HospitalIn the event this information is protected by the Federal Confidentiality of Alcohol and Drug Abuse Patient Records regulations: The Federal rules restrict any use of the information to criminally investigate or prosecute any alcohol or drug abuse patient.[facility] HospitalIn the event this information is protected by the Federal Confidentiality of Alcohol and Drug Abuse Patient Records regulations: The Federal rules restrict any use of the information to criminally investigate or prosecute any alcohol or drug abuse patient.[facility] HospitalIn the event this information is protected by the Federal Confidentiality of Alcohol and Drug Abuse Patient Records regulations: The Federal rules restrict any use of the information to criminally investigate or prosecute any alcohol or drug abuse patient.[facility] HospitalIn the event this information is protected by the Federal Confidentiality of Alcohol and Drug Abuse Patient Records regulations: The Federal rules restrict any use of the information to criminally investigate or prosecute any alcohol or drug abuse patient.[facility] HospitalIn the event this information is protected by the Federal Confidentiality of Alcohol and Drug Abuse Patient Records regulations: The Federal rules restrict any use of the information to criminally investigate or prosecute any alcohol or drug abuse patient.[facility] HospitalIn the event this information is protected by the Federal Confidentiality of Alcohol and Drug Abuse Patient Records regulations: The Federal rules restrict any use of the information to criminally investigate or prosecute any alcohol or drug abuse patient.[facility] HospitalIn the event this information is protected by the Federal Confidentiality of Alcohol and Drug Abuse Patient Records regulations: The Federal rules restrict any use of the information to criminally investigate or prosecute any alcohol or drug abuse patient.[facility] HospitalIn the event this information is protected by the Federal Confidentiality of Alcohol and Drug Abuse Patient Records regulations: The Federal rules restrict any use of the information to criminally investigate or prosecute any alcohol or drug abuse patient.[facility] HospitalIn the event this information is protected by the Federal Confidentiality of Alcohol and Drug Abuse Patient Records regulations: The Federal rules restrict any use of the information to criminally investigate or prosecute any alcohol or drug abuse patient.[facility] HospitalIn the event this information is protected by the Federal Confidentiality of Alcohol and Drug Abuse Patient Records regulations: The Federal rules restrict any use of the information to criminally investigate or prosecute any alcohol or drug abuse patient.[facility] HospitalIn the event this information is protected by the Federal Confidentiality of Alcohol and Drug Abuse Patient Records regulations: The Federal rules restrict any use of the information to criminally investigate or prosecute any alcohol or drug abuse patient.[facility] HospitalIn the event this information is protected by the Federal Confidentiality of Alcohol and Drug Abuse Patient Records regulations: The Federal rules restrict any use of the information to criminally investigate or prosecute any alcohol or drug abuse patient.[facility] HospitalIn the event this information is protected by the Federal Confidentiality of Alcohol and Drug Abuse Patient Records regulations: The Federal rules restrict any use of the information to criminally investigate or prosecute any alcohol or drug abuse patient.[facility] HospitalIn the event this information is protected by the Federal Confidentiality of Alcohol and Drug Abuse Patient Records regulations: The Federal rules restrict any use of the information to criminally investigate or prosecute any alcohol or drug abuse patient.[facility] HospitalIn the event this information is protected by the Federal Confidentiality of Alcohol and Drug Abuse Patient Records regulations: The Federal rules restrict any use of the information to criminally investigate or prosecute any alcohol or drug abuse patient.[facility] HospitalIn the event this information is protected by the Federal Confidentiality of Alcohol and Drug Abuse Patient Records regulations: The Federal rules restrict any use of the information to criminally investigate or prosecute any alcohol or drug abuse patient.[facility] HospitalIn the event this information is protected by the Federal Confidentiality of Alcohol and Drug Abuse Patient Records regulations: The Federal rules restrict any use of the information to criminally investigate or prosecute any alcohol or drug abuse patient.[facility] HospitalIn the event this information is protected by the Federal Confidentiality of Alcohol and Drug Abuse Patient Records regulations: The Federal rules restrict any use of the information to criminally investigate or prosecute any alcohol or drug abuse patient.[facility] HospitalIn the event this information is protected by the Federal Confidentiality of Alcohol and Drug Abuse Patient Records regulations: The Federal rules restrict any use of the information to criminally investigate or prosecute any alcohol or drug abuse patient.[facility] HospitalIn the event this information is protected by the Federal Confidentiality of Alcohol and Drug Abuse Patient Records regulations: The Federal rules restrict any use of the information to criminally investigate or prosecute any alcohol or drug abuse patient.[facility] HospitalIn the event this information is protected by the Federal Confidentiality of Alcohol and Drug Abuse Patient Records regulations: The Federal rules restrict any use of the information to criminally investigate or prosecute any alcohol or drug abuse patient.[facility] HospitalIn the event this information is protected by the Federal Confidentiality of Alcohol and Drug Abuse Patient Records regulations: The Federal rules restrict any use of the information to criminally investigate or prosecute any alcohol or drug abuse patient.[facility] HospitalIn the event this information is protected by the Federal Confidentiality of Alcohol and Drug Abuse Patient Records regulations: The Federal rules restrict any use of the information to criminally investigate or prosecute any alcohol or drug abuse patient.[facility] HospitalIn the event this information is protected by the Federal Confidentiality of Alcohol and Drug Abuse Patient Records regulations: The Federal rules restrict any use of the information to criminally investigate or prosecute any alcohol or drug abuse patient.[facility] HospitalIn the event this information is protected by the Federal Confidentiality of Alcohol and Drug Abuse Patient Records regulations: The Federal rules restrict any use of the information to criminally investigate or prosecute any alcohol or drug abuse patient.[facility] HospitalIn the event this information is protected by the Federal Confidentiality of Alcohol and Drug Abuse Patient Records regulations: The Federal rules restrict any use of the information to criminally investigate or prosecute any alcohol or drug abuse patient.[facility] HospitalIn the event this information is protected by the Federal Confidentiality of Alcohol and Drug Abuse Patient Records regulations: The Federal rules restrict any use of the information to criminally investigate or prosecute any alcohol or drug abuse patient.[facility] HospitalIn the event this information is protected by the Federal Confidentiality of Alcohol and Drug Abuse Patient Records regulations: The Federal rules restrict any use of the information to criminally investigate or prosecute any alcohol or drug abuse patient.[facility] HospitalIn the event this information is protected by the Federal Confidentiality of Alcohol and Drug Abuse Patient Records regulations: The Federal rules restrict any use of the information to criminally investigate or prosecute any alcohol or drug abuse patient.[facility] HospitalIn the event this information is protected by the Federal Confidentiality of Alcohol and Drug Abuse Patient Records regulations: The Federal rules restrict any use of the information to criminally investigate or prosecute any alcohol or drug abuse patient.[facility] HospitalIn the event this information is protected by the Federal Confidentiality of Alcohol and Drug Abuse Patient Records regulations: The Federal rules restrict any use of the information to criminally investigate or prosecute any alcohol or drug abuse patient.[facility] HospitalIn the event this information is protected by the Federal Confidentiality of Alcohol and Drug Abuse Patient Records regulations: The Federal rules restrict any use of the information to criminally investigate or prosecute any alcohol or drug abuse patient.[facility] HospitalIn the event this information is protected by the Federal Confidentiality of Alcohol and Drug Abuse Patient Records regulations: The Federal rules restrict any use of the information to criminally investigate or prosecute any alcohol or drug abuse patient.[facility] HospitalIn the event this information is protected by the Federal Confidentiality of Alcohol and Drug Abuse Patient Records regulations: The Federal rules restrict any use of the information to criminally investigate or prosecute any alcohol or drug abuse patient.[facility] HospitalIn the event this information is protected by the Federal Confidentiality of Alcohol and Drug Abuse Patient Records regulations: The Federal rules restrict any use of the information to criminally investigate or prosecute any alcohol or drug abuse patient.[facility] HospitalIn the event this information is protected by the Federal Confidentiality of Alcohol and Drug Abuse Patient Records regulations: The Federal rules restrict any use of the information to criminally investigate or prosecute any alcohol or drug abuse patient.[facility] HospitalIn the event this information is protected by the Federal Confidentiality of Alcohol and Drug Abuse Patient Records regulations: The Federal rules restrict any use of the information to criminally investigate or prosecute any alcohol or drug abuse patient.[facility] HospitalIn the event this information is protected by the Federal Confidentiality of Alcohol and Drug Abuse Patient Records regulations: The Federal rules restrict any use of the information to criminally investigate or prosecute any alcohol or drug abuse patient.[facility] HospitalIn the event this information is protected by the Federal Confidentiality of Alcohol and Drug Abuse Patient Records regulations: The Federal rules restrict any use of the information to criminally investigate or prosecute any alcohol or drug abuse patient.[facility] HospitalIn the event this information is protected by the Federal Confidentiality of Alcohol and Drug Abuse Patient Records regulations: The Federal rules restrict any use of the information to criminally investigate or prosecute any alcohol or drug abuse patient.[facility] HospitalIn the event this information is protected by the Federal Confidentiality of Alcohol and Drug Abuse Patient Records regulations: The Federal rules restrict any use of the information to criminally investigate or prosecute any alcohol or drug abuse patient.[facility] HospitalIn the event this information is protected by the Federal Confidentiality of Alcohol and Drug Abuse Patient Records regulations: The Federal rules restrict any use of the information to criminally investigate or prosecute any alcohol or drug abuse patient.[facility] HospitalIn the event this information is protected by the Federal Confidentiality of Alcohol and Drug Abuse Patient Records regulations: The Federal rules restrict any use of the information to criminally investigate or prosecute any alcohol or drug abuse patient.[facility] HospitalIn the event this information is protected by the Federal Confidentiality of Alcohol and Drug Abuse Patient Records regulations: The Federal rules restrict any use of the information to criminally investigate or prosecute any alcohol or drug abuse patient.[facility] HospitalIn the event this information is protected by the Federal Confidentiality of Alcohol and Drug Abuse Patient Records regulations: The Federal rules restrict any use of the information to criminally investigate or prosecute any alcohol or drug abuse patient.[facility] HospitalIn the event this information is protected by the Federal Confidentiality of Alcohol and Drug Abuse Patient Records regulations: The Federal rules restrict any use of the information to criminally investigate or prosecute any alcohol or drug abuse patient.[facility] HospitalIn the event this information is protected by the Federal Confidentiality of Alcohol and Drug Abuse Patient Records regulations: The Federal rules restrict any use of the information to criminally investigate or prosecute any alcohol or drug abuse patient.[facility] HospitalIn the event this information is protected by the Federal Confidentiality of Alcohol and Drug Abuse Patient Records regulations: The Federal rules restrict any use of the information to criminally investigate or prosecute any alcohol or drug abuse patient.[facility] Reason for Visit (unrecogniz ed section and content) Reason Comments malignant neoplasm of ureter follow up t reatment Reason Comments ureter cancer Specialty Diagnoses / Procedures Referred By Contac t Referred To Contact Diagnoses Malignant neoplasm of ureter (HCC) Soren Perea MD [facility] [place] [address] [place] [address] Referral ID Status Reason Start Date Expiration Date V isits Requested Visits Authorized [id number] Authorized 11/14/2021 02/12/2022 99 99 Reason Comments [...] Pembrolizumab Specialty Diagnoses / Procedures Referred By [facility] t Referred To Contact Diagnoses Malignant neoplasm of ureter, 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, 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) Caesar Vazquez MD [address] [place] [address] [place] [address] [address] [place] [address] [place] [address] Referral ID Status Reason Start Date Expiration Date V isits Requested Visits Authorized [id number] Authorized 12/24/2022 03/24/2023 99 99 Reason Comments [...] t Specialty Diagnoses / Procedures Referred By [facility] t Referred To Contact Diagnoses Malignant neoplasm of ureter, 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, 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) Procedures INJ PEMBROLIZUMAB Caesar aVzquez MD [address] [facility] [place] [address] [address] [place] [address] [place] [address] Referral ID Status Reason Start Date Expiration Date V isits Requested Visits Authorized [id number] Authorized 12/24/2022 10/13/2024 99 99 Reason Comments Bladder Cancer OTV Care Teams (unrecognized sec tion and content) Simulation Tech Relationship Specialty Start Date End Date Yoan Sneed MD [address] [place] [address] PCP - General Family Practice 07/30/19 Jian Rodriguez MD [address] [place] [address] Physician Urology 10/28/19 Lauren Mckeon, RN [address] [facility] [address] Specialty Psychiatric Registered Nurse Hematology/Oncology 11/21/21 Soren Perea MD [address] [facility] [place] [address] Physician Hematology/Oncology 11/21/21 Corazon Maxwell PA-C [address] [place] [address] Physician Parer Hematology/Oncology 11/21/21 Simulation Tech Relationship Specialty Start Date End Date Yoan Sneed MD [address] [place] [address] PCP - General Family Practice 07/30/19 Jian Rodriguez MD [address] [place] [address] Physician Urology 10/28/19 Lauren Mckeon, RN [address] [facility] [address] Specialty Psychiatric Registered Nurse Hematology/Oncology 11/21/21 Soren Perea MD [address] [facility] [place] [address] Physician Hematology/Oncology 11/21/21 Corazon Maxwell PA-C [address] [facility] [address] Physician Parer Hematology/Oncology 11/21/21 Simulation Tech Relationship Specialty Start Date End Date Yoan Sneed MD [address] [place] [address] PCP - General Family Practice 07/30/19 Jian Rodriguez MD [address] [place] [address] Physician Urology 10/28/19 Lauren Mckeon, RN [address] [facility] [address] Specialty Psychiatric Registered Nurse Hematology/Oncology 11/21/21 Soren Perea MD [address] [facility] [place] [address] Physician Hematology/Oncology 11/21/21 Corazon Maxwell, PA-C [address] [facility] [address] Physician Parer Hematology/Oncology 11/21/21 Simulation Tech Relationship Specialty Start Date End Date Yoan Sneed MD [address] [place] [address] PCP - General Family Practice 07/30/19 Jian Rodriguez MD [address] [place] [address] Physician Urology 10/28/19 Lauren Mckeon, RN [address] [facility] [place] [address] Specialty Psychiatric Registered Nurse Hematology/Oncology 11/21/21 Soren Perea MD [address] [facility] [place] [address] Physician Hematology/Oncology 11/21/21 Corazon Maxwell, PAEnocC [address] [facility] [address] Physician Parer Hematology/Oncology 11/21/21 Simulation Tech Relationship Specialty Start Date End Date Yoan Sneed MD [address] [place] [address] PCP - General Family Practice 07/30/19 Jian Rodriguez MD [address] [place] [address] Physician Urology 10/28/19 Lauren Mckeon, RN [address] [facility] [place] [address] Specialty Psychiatric Registered Nurse Hematology/Oncology 11/21/21 Soren Perea MD [address] [facility] [place] [address] Physician Hematology/Oncology 11/21/21 Corazon Maxwell PA-C [address] [facility] [address] [place], [facility] Physician Parer Hematology/Oncology 11/21/21 Simulation Tech Relationship Specialty Start Date End Date Yoan Sneed MD [address] [place] [address] PCP - General Family Practice 07/30/19 Jian Rodriguez MD [address] [place] [address] Physician Urology 10/28/19 Lauren Mckeon RN [address] [facility] [address] Specialty Psychiatric Registered Nurse Hematology/Oncology 11/21/21 Soren Perea MD [address] [facility] [address] [place], [facility] Physician Hematology/Oncology 11/21/21 Corazon Maxwell PA-C [address] [facility] [address] Physician Parer Hematology/Oncology 11/21/21 Simulation Tech Relationship Specialty Start Date End Date Yoan Sneed MD [address] [place] [address] PCP - General Family Practice 07/30/19 Jian Rodriguez MD [address] [place] [address] Physician Urology 10/28/19 Lauren Mckeon RN [address] [facility] [address] Specialty Psychiatric Registered Nurse Hematology/Oncology 11/21/21 Soren Perea MD [address] [place] [address] Physician Hematology/Oncology 11/21/21 Corazon Maxwell, PAEnocC [address] [place] [address] Physician Parer Hematology/Oncology 11/21/21 Simulation Tech Relationship Specialty Start Date End Date Yoan Sneed MD [address] [place] [address] PCP - General Family Practice 07/30/19 Jian Rodriguez MD [address] [place] [address] Physician Urology 10/28/19 Lauren Mckeon, RN [address] [facility] [address] Specialty Psychiatric Registered Nurse Hematology/Oncology 11/21/21 Soren Perea MD [address] [facility] [place] [address] Physician Hematology/Oncology 11/21/21 Corazon Maxwell PA-C [address] [place] [address] Physician Parer Hematology/Oncology 11/21/21 Simulation Tech Relationship Specialty Start Date End Date Yoan Sneed MD [address] [place] [address] PCP - General Family Practice 07/30/19 Jian Rodriguez MD [address] [place] [address] Physician Urology 10/28/19 Lauren Mckeon, RN [address] [facility] [place] [address] Specialty Psychiatric Registered Nurse Hematology/Oncology 11/21/21 Soren Perea MD [address] [facility] [place] [address] Physician Hematology/Oncology 11/21/21 Corazon Maxwell PA-C [address] [place] [address] Physician Parer Hematology/Oncology 11/21/21 Simulation Tech Relationship Specialty Start Date End Date Yoan Sneed MD [address] [place] [address] PCP - General Family Practice 07/30/19 Jian Rodriguez MD [address] [place] [address] Physician Urology 10/28/19 Lauren Mckeon, RN [address] [facility] [place] [address] Specialty Psychiatric Registered Nurse Hematology/Oncology 11/21/21 Soren Perea MD [address] [facility] [address] [place], [facility] Physician Hematology/Oncology 11/21/21 Corazon Maxwell PA-C [address] [facility] [address] Physician Parer Hematology/Oncology 11/21/21 Simulation Tech Relationship Specialty Start Date End Date Yoan Sneed MD [address] [place] [address] PCP - General Family Practice 07/30/19 Jian Rodriguez MD [address] [place] [address] Physician Urology 10/28/19 Lauren Mckeon, RN [address] [facility] [place] [address] Specialty Psychiatric Registered Nurse Hematology/Oncology 11/21/21 Soren Perea MD [address] [facility] [place] [address] Physician Hematology/Oncology 11/21/21 Corazon Maxwell, PAEnocC [address] [facility] [place] [address] Physician Parer Hematology/Oncology 11/21/21 Simulation Tech Relationship Specialty Start Date End Date Yoan Sneed MD [address] [place] [address] PCP - General Family Medicine 07/30/19 Jian Rodriguez MD [address] [place] [address] Physician Urology 10/28/19 Soren Perea MD [address] [facility] [address] [place], [facility] Physician Hematology/Oncology 11/21/21 Casey Castaneda MD [address] [facility] 1 [place] [id number] Cardiology 09/12/22 Simulation Tech Relationship Specialty Start Date End Date Yoan Sneed MD [address] [place] [address] PCP - General Family Medicine 07/30/19 Jian Rodriguez MD [address] [place] [address] Physician Urology 10/28/19 Soren Perea MD [address] [facility] [place] [address] Physician Hematology/Oncology 11/21/21 Casey Castaneda MD [address] [facility] 1 [place] [address] Cardiology 09/12/22 Simulation Tech Relationship Specialty Start Date End Date Yoan Sneed MD [address] [place] [address] PCP - General Family Medicine 07/30/19 Jian Rodriguez MD [address] [place] [address] Physician Urology 10/28/19 Soren Perea MD [address] [facility] [place] [address] Physician Hematology/Oncology 11/21/21 Casey Castaneda MD [address] [facility] [address] [place] [address] Cardiology 09/12/22 Simulation Tech Relationship Specialty Start Date End Date Yoan Sneed MD [address] [place] [address] PCP - General Family Medicine 07/30/19 Jian Rodriguez MD [address] [place] [address] Physician Urology 10/28/19 Soren Perea MD [address] [facility] [place] [address] Physician Hematology/Oncology 11/21/21 Casey Castaneda MD [address] [facility] 1 [place] [address] Cardiology 09/12/22 Simulation Tech Relationship Specialty Start Date End Date Yoan Sneed MD [address] [place] [address] PCP - General Family Medicine 07/30/19 Jian Rodriguez MD [address] [place] [address] Physician Urology 10/28/19 Soren Perea MD [address] [facility] [place] [address] Physician Hematology/Oncology 11/21/21 Casey Castaneda MD [address] [place] [address] Cardiology 09/12/22 Simulation Tech Relationship Specialty Start Date End Date Yoan Sneed MD [address] [place] [address] PCP - General Family Medicine 07/30/19 Jian Rodriguez MD [address] [place] [address] Physician Urology 10/28/19 Soren Perea MD [address] [facility] [place] [address] Physician Hematology/Oncology 11/21/21 Casey Castaneda MD [address] [place] [address] Cardiology 09/12/22 Simulation Tech Relationship Specialty Start Date End Date Yoan Sneed MD PCP - General Family Medicine 07/30/19 Jian Rodriguez MD [address] [place] [address] Physician Urology 10/28/19 Casey Castaneda MD [address] [facility] [address] [place] [address] Cardiology 09/12/22 Caesar Vazquez MD [address] [facility] [place] [address] Physician Hematology/Oncology 12/26/22 Margot So, SUNIL [address] [facility] [address] Specialty Psychiatric Registered Nurse Hematology/Oncology 12/26/22 Wayne Chavez, SUBMARINE DIVER.SHINGLE PACKER [address] [facility] [place] [address] Nurse Practitioner Hematology/Oncology 12/26/22 Simulation Tech Relationship Specialty Start Date End Date Yoan Sneed MD PCP - General Family Medicine 07/30/19 Jian Rodriguez MD [address] [place] [address] Physician Urology 10/28/19 Casey Castaneda MD [address] [facility] [place] [address] Cardiology 09/12/22 Caesar Vazquez MD [address] [facility] [place] [address] Physician Hematology/Oncology 12/26/22 Margot So, RN [address] [facility] [place] [address] Specialty Psychiatric Registered Nurse Hematology/Oncology 12/26/22 Wayne Chavez, SUBMARINE DIVER.SHINGLE PACKER [address] [facility] [place] [address] Nurse Practitioner Hematology/Oncology 12/26/22 Simulation Tech Relationship Specialty Start Date End Date Yoan Sneed MD PCP - General Family Medicine 07/30/19 Jian Rodriguez MD [address] [place] [address] Physician Urology 10/28/19 Casey Castaneda MD [address] [facility] [address] [place] [phone] Cardiology 09/12/22 Caesar Vazquez MD [address] [facility] [place] [address] Physician Hematology/Oncology 12/26/22 Margot So, SUNIL [address] [place] [address] [place] [address] Specialty Psychiatric Registered Nurse Hematology/Oncology 12/26/22 Wayne Chavez, SUBMARINE DIVER.[address] [place] [address] Nurse Practitioner Hematology/Oncology 12/26/22 Simulation Tech Relationship Specialty Start Date End Date Yoan Sneed MD PCP - General Family Medicine 07/30/19 Jian Rodriguez MD [address] [place] [address] Physician Urology 10/28/19 Casey Castaneda MD [address] [facility] [address] [place] [address] Cardiology 09/12/22 Caesar Vazquez MD [address] [facility] [place] [address] Physician Hematology/Oncology 12/26/22 Margot So, SUNIL [address] [facility] [place] [address] Specialty Psychiatric Registered Nurse Hematology/Oncology 12/26/22 Wayne Chavez, SUBMARINE DIVER.[facility] [address] [facility] [place] [address] Nurse Practitioner Hematology/Oncology 12/26/22 Simulation Tech Relationship Specialty Start Date End Date Yoan Sneed MD PCP - General Family Medicine 07/30/19 Jian Rodriguez MD [address] [place] [address] Physician Urology 10/28/19 Casey Castaneda MD [address] [facility] [address] [place] [address] Cardiology 09/12/22 Caesar Vazquez MD [address] [facility] [address] Physician Hematology/Oncology 12/26/22 Margot So, SUNIL [address] [facility] [place] [address] Specialty Psychiatric Registered Nurse Hematology/Oncology 12/26/22 Wayne Chavez, SUBMARINE DIVER.SHINGLE PACKER [address] [facility] [place] [address] Nurse Practitioner Hematology/Oncology 12/26/22 Simulation Tech Relationship Specialty Start Date End Date Yoan Sneed MD PCP - General Family Medicine 07/30/19 Jian Rodriguez MD [address] [place] [address] Physician Urology 10/28/19 Casey Castaneda MD [address] [facility] [address] [place] [address] Cardiology 09/12/22 Caesar Vazquez MD [address] [facility] [place] [address] Physician Hematology/Oncology 12/26/22 Margot So, SUNIL [address] [facility] [place] [address] Specialty Psychiatric Registered Nurse Hematology/Oncology 12/26/22 Wayne Chavez, SUBMARINE DIVER.SHINGLE PACKER [address] [facility] [place] [address] Nurse Practitioner Hematology/Oncology 12/26/22 Simulation Tech Relationship Specialty Start Date End Date Yoan Sneed MD PCP - General Family Medicine 07/30/19 Jian Rodriguez MD Physician Urology 10/28/19 Casey Castaneda MD [address] [place] [address] Cardiology 09/12/22 Caesar Vazquez MD [address] [place] [address] Physician Hematology/Oncology 12/26/22 Margot So, RN [address] [facility] [address] Specialty Psychiatric Registered Nurse Hematology/Oncology 12/26/22 Wayne Chavez, SUBMARINE DIVER.SHINGLE PACKER [address] [facility] [address] Nurse Practitioner Hematology/Oncology 12/26/22 Simulation Tech Relationship Specialty Start Date End Date Yoan Sneed MD PCP - General Family Medicine 07/30/19 Jian Rodriguez MD Physician Urology 10/28/19 Casey [facility]aneda MD [facility] [facility] [address] [place] [address] Cardiology 09/12/22 Caesar Vazquez MD [address] [place] [address] Physician Hematology/Oncology 12/26/22 Margot So, RN [address] [facility] [address] Specialty Psychiatric Registered Nurse Hematology/Oncology 12/26/22 Wayne Chavez, SUBMARINE DIVER.SHINGLE PACKER [address] [place] [address] [place] [address] Nurse Practitioner Hematology/Oncology 12/26/22 Simulation Tech Relationship Specialty Start Date End Date Yoan Sneed MD PCP - General Family Medicine 07/30/19 Jian Rodriguez MD Physician Urology 10/28/19 Casey Castaneda MD [address] [facility] [address] [facility] [place] [address] Cardiology 09/12/22 Caesar Vazquez MD [address] [place] [address] [place] [address] Physician Hematology/Oncology 12/26/22 Margot So, SUNIL [address] [place] [address] [place] [address] Specialty Psychiatric Registered Nurse Hematology/Oncology 12/26/22 Wayne Chavez, SUBMARINE DIVER.SHINGLE PACKER [address] [place] [address] [place] [address] Nurse Practitioner Hematology/Oncology 12/26/22 Simulation Tech Relationship Specialty Start Date End Date Yoan Sneed MD PCP - General Family Medicine 07/30/19 Jian Rodriguez MD Physician Urology 10/28/19 Casey Castaneda MD [address] [facility] 1 [facility] [place] [address] Cardiology 09/12/22 Caesar Vazquez MD [address] [facility] [address] Physician Hematology/Oncology 12/26/22 Margot So, RN [address] [facility] [address] Specialty Psychiatric Registered Nurse Hematology/Oncology 12/26/22 Wayne Chavez APRN.SHINGLE PACKER [address] [facility] [place] [address] Nurse Practitioner Hematology/Oncology 12/26/22 Simulation Tech Relationship Specialty Start Date End Date Yoan Sneed MD PCP - General Family Medicine 07/30/19 Jian Rodriguez MD Physician Urology 10/28/19 Casey Castaneda MD [address] [facility] 1 [facility] [place] [address] Cardiology 09/12/22 Caesar Vazquez MD [address] [facility] [address] Physician Hematology/Oncology 12/26/22 Margot So, RN [address] [facility] [address] Specialty Psychiatric Registered Nurse Hematology/Oncology 12/26/22 Wayne Chavez, SUBMARINE DIVER.SHINGLE PACKER [address] [facility] [place] [address] Nurse Practitioner Hematology/Oncology 12/26/22 Simulation Tech Relationship Specialty Start Date End Date Yoan Sneed MD PCP - General Family Medicine 07/30/19 Jian Rodriguez MD Physician Urology 10/28/19 Casey Castaneda MD [address] [facility] 1 [facility] [place] [address] Cardiology 09/12/22 Caesar Vazquez MD [address] [facility] [place] [address] Physician Hematology/Oncology 12/26/22 Margot So, RN [address] [facility] [place] [address] Specialty Psychiatric Registered Nurse Hematology/Oncology 12/26/22 Wayne Chavez, SUBMARINE DIVER.SHINGLE PACKER [address] [place] [address] [place] [address] Nurse Practitioner Hematology/Oncology 12/26/22 Simulation Tech Relationship Specialty Start Date End Date Yoan Sneed MD PCP - General Family Medicine 07/30/19 Jian Rodriguez MD Physician Urology 10/28/19 Simulation Tech Relationship Specialty Start Date End Date Yoan Sneed MD PCP - General Family Medicine 07/30/19 Jian Rodriguez MD Physician Urology 10/28/19 Casey Castaneda MD [address] [facility] 1 [place] [phone] Cardiology 09/12/22 Caesar Vazquez MD [address] [facility] [place] [address] Physician Hematology/Oncology 12/26/22 Margot So, SUNIL [address] [facility] [place] [id number] Specialty Psychiatric Registered Nurse Hematology/Oncology 12/26/22 Wayne Chavez APRN.SHINGLE PACKER [address] [facility] [address] Nurse Practitioner Hematology/Oncology 12/26/22 Simulation Tech Relationship Specialty Start Date End Date Yoan Sneed MD PCP - General Family Medicine 07/30/19 Jian Rodriguez MD Physician Urology 10/28/19 Casey Castaneda MD [address] [facility] 1 [place] [address] Cardiology 09/12/22 Caesar Vazquez MD [address] [facility] [place] [address] Physician Hematology/Oncology 12/26/22 Margot So, RN [address] [facility] [place] [address] Specialty Psychiatric Registered Nurse Hematology/Oncology 12/26/22 Wayne Chavez, SUBMARINE DIVER.SHINGLE PACKER [address] [facility] [place] [address] Nurse Practitioner Hematology/Oncology 12/26/22 Simulation Tech Relationship Specialty Start Date End Date Yoan Sneed MD PCP - General Family Medicine 07/30/19 Jian Rodriguez MD Physician Urology 10/28/19 Casey Castaneda MD [address] [facility] 1 [facility] [place] [address] Cardiology 09/12/22 Caesar Vazquez MD [address] [facility] [place] [address] Physician Hematology/Oncology 12/26/22 Margot So, SUNIL [address] [facility] [place] [address] Specialty Psychiatric Registered Nurse Hematology/Oncology 12/26/22 Wayne Chavez, SUBMARINE DIVER.SHINGLE PACKER [address] [facility] [place] [address] Nurse Practitioner Hematology/Oncology 12/26/22 Simulation Tech Relationship Specialty Start Date End Date Yoan Sneed MD PCP - General Family Medicine 07/30/19 Jian Rodriguez MD Physician Urology 10/28/19 Casey Castaneda MD [address] [facility] 1 [place] [phone] Cardiology 09/12/22 Caesar Vazquez MD [address] [facility] [place] [address] Physician Hematology/Oncology 12/26/22 Margot So, SUNIL [address] [facility] [place] [address] Specialty Psychiatric Registered Nurse Hematology/Oncology 12/26/22 Wayne Chavez, MARSHA.SHINGLE PACKER [address] [facility] [address] Nurse Practitioner Hematology/Oncology 12/26/22 Simulation Tech Relationship Specialty Start Date End Date Yoan Sneed MD PCP - General Family Medicine 07/30/19 Jian Rodriguez MD Physician Urology 10/28/19 Casey Castaneda MD [address] [facility] 1 [place] [phone] Cardiology 09/12/22 Caesar Vazquez MD [address] [facility] [place] [address] Physician Hematology/Oncology 12/26/22 Margot So, RN [address] [facility] [place] [address] Specialty Psychiatric Registered Nurse Hematology/Oncology 12/26/22 Wayne Chavez, SUBMARINE DIVER.SHINGLE PACKER [address] [facility] [place] [address] Nurse Practitioner Hematology/Oncology 12/26/22 Simulation Tech Relationship Specialty Start Date End Date Yoan Sneed MD PCP - General Family Medicine 07/30/19 Jian Rodriguez MD Physician Urology 10/28/19 Casey Castaneda MD [address] [facility] 1 [place] [address] Cardiology 09/12/22 Caesar Vazquez MD [address] [facility] [place] [address] Physician Hematology/Oncology 12/26/22 Margot So, SUNIL [address] [facility] [place] [address] Specialty Psychiatric Registered Nurse Hematology/Oncology 12/26/22 Wayne Chavez, SUBMARINE DIVER.SHINGLE PACKER [address] [facility] [place] [address] Nurse Practitioner Hematology/Oncology 12/26/22 Simulation Tech Relationship Specialty Start Date End Date Yoan Sneed MD PCP - General Family Medicine 07/30/19 Jian Rodriguez MD Physician Urology 10/28/19 Casey Castaneda MD [address] [facility] 1 [facility] [place] [phone] Cardiology 09/12/22 Caesar Vazquez MD [address] [place] [address] [place] [address] Physician Hematology/Oncology 12/26/22 Margot So, SUNIL [address] [facility] [place] [address] Specialty Psychiatric Registered Nurse Hematology/Oncology 12/26/22 Wayne Chavez APRN.SHINGLE PACKER [address] [place] [address] [place] [address] Nurse Practitioner Hematology/Oncology 12/26/22 Simulation Tech Relationship Specialty Start Date End Date Yoan Sneed MD PCP - General Family Medicine 07/30/19 Jian Rodriguez MD Physician Urology 10/28/19 Casey Castaneda MD [address] [place] [id number] Cardiology 09/12/22 Caesar Vazquez MD [address] [place] [address] [place] [address] Physician Hematology/Oncology 12/26/22 Margot So, SUNIL [address] [facility] [place] [address] Specialty Psychiatric Registered Nurse Hematology/Oncology 12/26/22 Wayne Chavez, SUBMARINE DIVER.SHINGLE PACKER [address] [place] [address] [place] [address] Nurse Practitioner Hematology/Oncology 12/26/22 Simulation Tech Relationship Specialty Start Date End Date Yoan Sneed MD PCP - General Family Medicine 07/30/19 Jian Rodriguez MD Physician Urology 10/28/19 Casey Castaneda MD [address] [facility] [address] [facility] [place] [address] Cardiology 09/12/22 Caesar Vazquez MD [address] [place] [address] [place] [address] Physician Hematology/Oncology 12/26/22 Margot So, SUNIL [address] [facility] [place] [address] Specialty Psychiatric Registered Nurse Hematology/Oncology 12/26/22 Wayne Chavez, SUBMARINE DIVER.SHINGLE PACKER [address] [place] [address] [place] [address] Nurse Practitioner Hematology/Oncology 12/26/22 Simulation Tech Relationship Specialty Start Date End Date Yoan Sneed MD PCP - General Family Medicine 07/30/19 Jian Rodriguez MD Physician Urology 10/28/19 Casey Castaneda MD [address] 1 [place] [phone] Cardiology 09/12/22 Caesar Vazquez MD [address] [facility] [address] Physician Hematology/Oncology 12/26/22 Margot So, SUNIL [address] [facility] [address] Specialty Psychiatric Registered Nurse Hematology/Oncology 12/26/22 Wayne Chavez APRN.SHINGLE PACKER [address] [facility] [place] [address] Nurse Practitioner Hematology/Oncology 12/26/22 Simulation Tech Relationship Specialty Start Date End Date Yoan Sneed MD PCP - General Family Medicine 07/30/19 Jian Rodriguez MD Physician Urology 10/28/19 Casey [facility]aneda MD [address] [facility] 1 [place] [address] Cardiology 09/12/22 Caesar Vazquez MD [address] [facility] [address] Physician Hematology/Oncology 12/26/22 Margot So, SUNIL [address] [facility] [place] [address] Specialty Psychiatric Registered Nurse Hematology/Oncology 12/26/22 Wayne Chavez, SUBMARINE DIVER.SHINGLE PACKER [address] [place] [address] [place] [address] Nurse Practitioner Hematology/Oncology 12/26/22 Simulation Tech Relationship Specialty Start Date End Date Yoan Sneed MD PCP - General Family Medicine 07/30/19 Jian Rodriguez MD Physician Urology 10/28/19 Casey Castaneda MD [address] [facility] [address] [place] [address] Cardiology 09/12/22 Caesar Vazquez MD [address] [place] [address] [place] [address] Physician Hematology/Oncology 12/26/22 Margot So, SUNIL [address] [facility] [place] [address] Specialty Psychiatric Registered Nurse Hematology/Oncology 12/26/22 Wayne Chavez, SUBMARINE DIVER.SHINGLE PACKER [address] [place] [address] [place] [address] Nurse Practitioner Hematology/Oncology 12/26/22 Simulation Tech Relationship Specialty Start Date End Date Yoan Sneed MD PCP - General Family Medicine 07/30/19 Jian Rodriguez MD Physician Urology 10/28/19 Casey Castaneda MD [address] [facility] [address] [facility] [place] [address] Cardiology 09/12/22 Caesar Vazquez MD [address] [facility] [address] Physician Hematology/Oncology 12/26/22 Margot So, SUNIL [address] [facility] [place] [address] Specialty Psychiatric Registered Nurse Hematology/Oncology 12/26/22 Wayne Chavez APRN.SHINGLE PACKER [address] [place] [address] [place] [address] Nurse Practitioner Hematology/Oncology 12/26/22 Inactive Administered [...] BE BASED ON THE PRIMARY CLINICAL RECORDS. [facility] CenterThe [employer]. provides no warranty or guarantee of the accuracy or completeness of information in this document.
[2024-01-07 11:16] LABS: Alanine Aminotransferase 29 U/L (16-63); Albumin Level 2.4 g/dL (3.4-5.0); Alkaline Phosphatase 53 U/L (46-116); Anion Gap 9.7; Aspartate Amino Transferase 24 U/L (15-37); BUN Creatinine Ratio 10.3; Bilirubin Total 0.7 mg/dL (0.2-1.0); Calcium 7.8 mg/dL (8.5-10.1); Carbon Dioxide 30.2 mmol/L (21.0-32.0); Chloride 103 mmol/L (98-107); Estimated GFR (African America 52 (>=60); Estimated GFR (Non-African Ame 43 (>=60); Free T3 1.25 pg/mL (2.18-3.98); Globulin 2.4 g/dL; Glucose 107 mg/dL (74-106); Potassium 3.9 mmol/L (3.5-5.1); Sodium 139 mmol/L (136-145); Thyroid Stimulating Hormone 2.804 uIU/mL (0.358-3.740); Total Protein 4.8 g/dL (6.4-8.2); Uric Acid 5.7 mg/dL (3.5-7.2)
[2024-01-07 11:47] LABS: Basophils Percent Auto 0.7 % (0.2-2.0); Eosinophils Absolute Auto 0.1 10^3/uL (0.0-0.7); Eosinophils Percent Auto 1.4 % (0.9-7.0); Hematocrit 37.8 % (42.0-54.0); Hemoglobin 12.4 g/dL (14.0-18.0); Immature Granulocytes Abs Auto 0.01 10^3/uL (0.00-0.03); Immature Granulocytes Pct Auto 0.2 % (0.0-0.5); Lymphocytes Absolute Auto 0.5 10^3/uL (1.2-3.8); Lymphocytes Percent Auto 8.1 % (20.5-60.0); Mean Corpuscular HGB Conc 32.8 g/dL (29.9-35.2); Mean Corpuscular Hemoglobin 27.8 pg (25.9-34.0); Mean Corpuscular Volume 84.8 fL (80.0-94.0); Monocytes Absolute Auto 0.5 10^3/uL (0.3-0.8); Monocytes Percent Auto 9.5 % (1.7-12.0); Neutrophils Absolute Auto 4.5 10^3/uL (1.4-6.5); Neutrophils Percent Auto 80.1 % (43.0-75.0); Platelet Count 228 10^3/uL (150-450); Red Blood Count 4.46 10^6/uL (4.70-6.10); Red Cell Distribution Width 16.3 % (11.0-15.0); White Blood Count 5.6 10^3/uL (4.0-11.0)
[2024-01-07 15:58] LABS: Occult Blood Positive
[2024-01-08 15:51] LABS: C. Difficile PCR NEGATIVE (NEGATIVE)
== END 2024-01-07 10:20 | disposition home or self-care (01) ==
LOC: LAB 10:20
PROVIDERS: PCP Family Medicine; Visit Provider Family Medicine
DX: R19.7 Diarrhea, unspecified (principal); R63.4 Abnormal weight loss; R60.9 Edema, unspecified; Z12.5 Encounter for screening for malignant neoplasm of prostate; Z12.12 Encounter for screening for malignant neoplasm of rectum; I11.0 Hypertensive heart disease with heart failure; I50.30 Unspecified diastolic (congestive) heart failure
CPT/HCPCS: 36415; 80053; 83880; 84436; 84443; 84481; 84550; 85025; 87045; 87046; 87427; 87493; G0328

== ENCOUNTER 2024-01-23 07:02 | Outpatient (OUT) | payer MEDICARE, SELFPAY ==
--- OUTSIDE RECORDS SUMMARY | 2024-01-23 07:07 | XMS_ITS | CCD ---
Author Organization [facility] Care Team Providers Care Senior Audit Manager Name Role Phone PHYSICIAN, DEFAULT Unavailable Unavailable PHYSICIAN, DEFAULT Unavailable Unavailable PHYSICIAN, DEFAULT Unavailable Unavailable PHYSICIAN, DEFAULT Unavailable Unavailable Yoan Sneed MD Primary Care Provider Jian Rodriguez MD Unavailable Unavailable Mike BARBER, Lauren Barros Unavailable Soren Perea MD Unavailable Alissa VASQUEZ, Corazon Feliz Unavailable [phone] Augusto Sauceda Unavailable Shawn Nelson Unavailable Yoan Sneed MD Primary Care Provider Jian Rodriguez MD Unavailable Unavailable Brit FOUNTAIN, Soren Unavailable Casey Castaneda MD Unavailable [phone] Yoan Sneed Primary Care Physician Yoan Sneed MD Primary Care Provider Caesar Vazquez MD Unavailable Saray BARBER, Margot Unavailable [phone] Wayne Chavez APRN.CNP Unavailable PAY ., [...] MIGUEL Attending Unavailable MERZA, NOORALDIN Referring Unavailable AHMED, MIGUEL Referring Unavailable AHMED, MIGUEL Referring Unavailable AHMED, MIGUEL Referring Unavailable REESE, JONATHAN Attending Unavailable AIDE, JESSICA Attending Unavailable LILY, JIMBO Referring Unavailable BARAZI, JOSESITO Attending Unavailable AIDEMAYIA Attending Unavailable WITHCONSTANTINO, DAGOBERTO Attending Unavailable LILY, JIMBO Attending Unavailable BARAZI, JOSESITO Attending Unavailable BARAZI, JOSESITO Referring Unavailable LILY, JIMBO Referring Unavailable ELMO, NASHEED Referring Unavailable ELMO, NASHEED Attending Unavailable MERZA, NOORALDIN Referring Unavailable Allergies Allergy Classification Reported Allergen(s) Allergy Type Date of Onset Reaction(s) Facility (20 sources) Adhesive Tape; Translations: [ADHESIVE TAPE (ROSINS)] Propensity to adverse reactions to substance 8 Other: See Comments [facility] (2 sources) Adhesive Tape; Translations: [Tape] Allergy to substance Blister of skin without infection (disorder) [facility] (4 sources) Desonide Drug Allergy 4 Unknown [facility] Repository (1 source) No Known Medication Allergies; Translations: [No Known Medication Allergies] Propensity to adverse reactions (disorder) [facility] Repository (2 sources) Adhesive agent; Translations: [ADHESIVE] Propensity to adverse reactions to drug (disorder) 8 [facility] Repository (2 sources) Desonide; Translations: [DESONIDE] Drug Allergy 4 [facility] Repository (1 source) OTHER; Translations: [OTHER] Propensity to adverse reactions (disorder) 8 [facility] Repository NEGATED: Highlighted row has been ruled out! (1 source) Drug allergy [facility] Medications Current Medications Medication Drug Class(es) [...] mg oral tablet (12 sources) Phenothiazine Start: 022 End: take 1 tablet by mouth every six hours as needed prochlorperazine (COMPAZINE) 10 mg tablet Take 1 tablet by mouth every 6 hours as needed. 100 tablet 2 11/21/2021 05/03/2022 Discontinued Comment on above: [facility]. Completed/Discontinued [...] on above: Take 2 tablets by [facility] every 4 hours as needed for Pain. [...] procedure, # 2 tab(s), Refills(s) 0, Pharmacy: [facility] [id number], 167, cm, 12/05/22 9:25:00 EST, Height/Length Dosing, [...] Take 325 mg by mouth . Fish Oil-[place]-3 Fatty Acids (FISH OIL) 300-1,000 mg cap (13 sources) take 1 capsule by mouth once daily Fish Oil-[place]-3 Fatty Acids (FISH OIL) 300-1,000 mg cap [...] oral tablet (20 sources) Nitrate Vasodilator End: 024 take 1 tablet by mouth once daily, [...] on above: Take 1 capsule by [facility] twice daily. 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 Diseases of mouth; excluding dental (1 source) Xerostomia; Translations: [Dry mouth, unspecified] 04-25-2023 Episodic Disorders of lipid metabolism (4 sources) Pure hypercholesterolemia, unspecified; Translations: [Hyperlipidemia, unspecified] [...] 3 Chronic Other aftercare (1 source) Other fdc (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; Translations: [OTH BLUEPRINT CLERK CURRENT DRUG THERAPY] Onset: 3 Episodic Other aftercare (1 source) 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; Translations: [BLUEPRINT CLERK CURRENT USE OF ASPIRIN] Onset: 3 Episodic [...] KIDNEY DISEASE STG 3 UNSP] Onset: 2 Unclassified (1 source) Other ventricular tachycardia; Translations: [Other ventricular tachycardia] Onset: 4 Urinary tract infections (1 source) Acute cystitis; [...] Translations: [SYNCOPE AND COLLAPSE] Onset: 01-11-2023 Episodic Unclassified (1 source) Other ventricular tachycardia; Translations: [Other ventricular tachycardia] Onset: 01-21-2024 Results Test Name Value Interpretation Reference Range Facility Office Visiton 01-21-2024 Follow-up visit [id number] Juan Jose Austin 1940 M Date Provider Department Center 01/21/2024 [facility] Family History Problem Relation Age of Onset Heart failure Mother Family Status - Relation Status Age at Mother Level of Service:[address]26 [place] OFFICE/OUTPATIENT ESTABLISHED MOD MDM 30 MIN Normal [facility] 37on 01-15-2024 37 *Increase metoprolol to 50mg daily. You can take 2 tablets of your current 25mg prescription until this runs out then start the new prescription of 1 tablet of the 50mg prescription daily *Take 2 tablets of your lasix (40mg) for 2 days then take 20mg daily for 1 week. Monitor your weights daily. *Follow-up with Dr. Sneed regarding your positive blood in your stool test Normal [facility] Office Visiton 01-15-2024 Follow-up visit [id number] Juan Jose Austin Shirley 1940 M Date Provider Department Center 01/15/2024 JESSICA ALEJANDRO [facility] Family History Problem Relation Age of Onset Heart failure Mother Family Status - Relation Status Age at Mother Level of Service:79289 [place] OFFICE/OUTPATIENT ESTABLISHED MOD MDM 30 MIN Reason for Visit and Comments: Follow-up [264399] - Go over stress test Normal [facility] 36on 01-02-2024 36 Regarding stress edin t result from 12/30/2023: Jessica Schneider, JAMA Casey MA Reviewed his stress test with Dr. Castaneda. There is no ischemia so no further ischemic work-up needed at this time. We can consider starting ranexa if he is still having chest pain sx's. Thanks Spoke with patient's daughter and informed her of result and also his follow up apt scheduled on 01/14 at 9:00am with Corazon. Normal [facility] CBC W Auto Differential pane l (Bld)on 12-20-2023 Basophils (Bld) [#/Vol] 0.05 10*3/uL Normal <0.11 [facility] Comment on above: Order Comment: Speci men Type: BLOOD SPECIMENOrdering Facility: [facility] Address: [address] [place] [address] Performed By: #### 5 7021-8 ####[facility] LABCLIA [id number] [place] [address] Basophils/100 WBC (Bld) 0.9 % Normal [facility] Comment on above: Order Comment: Speci men Type: BLOOD SPECIMENOrdering Facility: [facility] Address: [address] [place] [address] Performed By: #### 5 7021-8 ####[facility] LABCLIA [id number] [place] [address] Differential cell count method Nom (Bld) Auto Normal [facility] Comment on above: Order Comment: Speci men Type: BLOOD SPECIMENOrdering Facility: [facility] Address: [address] [place] [address] Performed By: #### 5 7021-8 ####[facility] LABCLIA [id number] [place] [address] Eosinophils (Bld) [#/Vol] 0.07 10*3/uL Normal <0.46 [facility] Comment on above: Order Comment: Speci men Type: BLOOD SPECIMENOrdering Facility: [facility] Address: [address] [place] [address] Performed By: #### 5 7021-8 ####[facility] LABCLIA [id number] [place] [address] Eosinophils/100 WBC (Bld) 1.3 % Normal [facility] Comment on above: Order Comment: Speci men Type: BLOOD SPECIMENOrdering Facility: [facility] Address: [address] [place] [address] Performed By: #### 5 7021-8 ####[facility] LABCLIA [id number] [place] [address] Erythrocyte distribution width (RBC) [Ratio] 15.9 % High 11.5-15.0 [facility] Comment on above: Order Comment: Speci men Type: BLOOD SPECIMENOrdering Facility: [facility] Address: [address] [place] [address] Performed By: #### 5 7021-8 ####[facility] LABIA [id number] [place] [address] Hematocrit (Bld) [Volume fraction] 39.1 % Normal 39.0-51.0 [facility] Comment on above: Order Comment: Speci men Type: BLOOD SPECIMENOrdering Facility: [facility] Address: [address] [place] [address] Performed By: #### 5 7021-8 ####[facility] LABCLIA [id number] [place] [address] Hemoglobin (Bld) [Mass/Vol] 13.2 g/dL Normal 13.0-17.0 [facility] Comment on above: Order Comment: Speci men Type: BLOOD SPECIMENOrdering Facility: [facility] Address: [address] [place] [address] Performed By: #### 5 7021-8 ####[facility] LABCLIA [id number] [place] [address] Immature granulocytes (Bld) [#/Vol] 10*3/uL Normal <0.10 [facility] Comment on above: Order Comment: Speci men Type: BLOOD SPECIMENOrdering Facility: [facility] Address: [address] [place] [address] Performed By: #### 5 7021-8 ####[facility] LABCLIA [id number] [place] [address] Immature granulocytes/100 WBC (Bld) 0.4 % Normal [facility] Comment on above: Order Comment: Speci men Type: BLOOD SPECIMENOrdering Facility: [facility] Address: [address] [place] [address] Performed By: #### 5 7021-8 ####[facility] LABCLIA [id number] [place] [address] Lymphocytes (Bld) [#/Vol] 0.47 10*3/uL Low 1.00-4.00 [facility] Comment on above: Order Comment: Speci men Type: BLOOD SPECIMENOrdering Facility: [facility] Address: [address] [place] [address] Performed By: #### 5 7021-8 ####[facility] LABCLIA [id number] [place] [address] Lymphocytes/100 WBC (Bld) 8.6 % Normal [facility] Comment on above: Order Comment: Speci men Type: BLOOD SPECIMENOrdering Facility: [facility] Address: [address] [place] [address] Performed By: #### 5 7021-8 ####[facility] LABCLIA [id number] [place] [address] MCH (RBC) [Entitic mass] 27.5 pg Normal 26.0-34.0 [facility] Comment on above: Order Comment: Speci men Type: BLOOD SPECIMENOrdering Facility: [facility] Address: [address] [place] [address] Performed By: #### 5 7021-8 ####[facility] LABIA [id number] [place] [address] MCHC (RBC) [Mass/Vol] 33.8 g/dL Normal 30.5-36.0 [facility] Comment on above: Order Comment: Speci men Type: BLOOD SPECIMENOrdering Facility: [facility] Address: [address] [place] [address] Performed By: #### 5 7021-8 ####[facility] LABCLIA [id number] [place] [address] MCV (RBC) [Entitic vol] 81.5 fL Normal 80.0-100.0 [facility] Comment on above: Order Comment: Speci men Type: BLOOD SPECIMENOrdering Facility: [facility] Address: [address] [place] [address] Performed By: #### 5 7021-8 ####[facility] LABIA [id number] [place] [address] Monocytes (Bld) [#/Vol] 0.41 10*3/uL Normal <0.87 [facility] Comment on above: Order Comment: Speci men Type: BLOOD SPECIMENOrdering Facility: [facility] Address: [address] [place] [address] Performed By: #### 5 7021-8 ####[facility] LABCLIA [id number] [place] [address] Monocytes/100 WBC (Bld) 7.5 % Normal [facility] Comment on above: Order Comment: Speci men Type: BLOOD SPECIMENOrdering Facility: [facility] Address: [address] [place] [address] Performed By: #### 5 7021-8 ####[facility] LABCLIA [id number] [place] [address] Neutrophils (Bld) [#/Vol] 4.43 10*3/uL Normal 1.45-7.50 [facility] Comment on above: Order Comment: Speci men Type: BLOOD SPECIMENOrdering Facility: [facility] Address: [address] [place] [address] Performed By: #### 5 7021-8 ####[facility] LABCLIA [id number] [place] [address] Neutrophils/100 WBC (Bld) 81.3 % Normal [facility] Comment on above: Order Comment: Speci men Type: BLOOD SPECIMENOrdering Facility: [facility] Address: [address] [place] [address] Performed By: #### 5 7021-8 ####[facility] LABCLIA [id number] [place] [address] Nucleated RBC (Bld) [#/Vol] 10*3/uL Normal <0.01 [facility] Comment on above: Order Comment: Speci men Type: BLOOD SPECIMENOrdering Facility: [facility] Address: [address] [place] [address] Performed By: #### 5 7021-8 ####[facility] LABIA [id number] [place] [address] Nucleated RBC/100 WBC (Bld) [Ratio] 0.0 /100 WBC Normal [facility] Comment on above: Order Comment: Speci men Type: BLOOD SPECIMENOrdering Facility: [facility] Address: [address] [place] [address] Performed By: #### 5 7021-8 ####[facility] LABCLIA [id number] [place] [address] Platelet mean volume (Bld) [Entitic vol] 8.3 fL Low 9.0-12.7 [facility] Comment on above: Order Comment: Speci men Type: BLOOD SPECIMENOrdering Facility: [facility] Address: [address] [place] [address] Performed By: #### 5 7021-8 ####[facility] LABCLIA [id number] [place] [address] Platelets (Bld) [#/Vol] 234 10*3/uL Normal 150-400 [facility] Comment on above: Order Comment: Speci men Type: BLOOD SPECIMENOrdering Facility: [facility] Address: [address] [place] [address] Performed By: #### 5 7021-8 ####[facility] LABCLIA [id number] [place] [address] RBC (Bld) [#/Vol] 4.80 10*6/uL Normal 4.20-6.00 [facility] Comment on above: Order Comment: Speci men Type: BLOOD SPECIMENOrdering Facility: [facility] Address: [address] [place] [address] Performed By: #### 5 7021-8 ####[facility] LABCLIA [id number] [place] [address] WBC (Bld) [#/Vol] 5.45 10*3/uL Normal 3.70-11.00 [facility] Comment on above: Order Comment: Speci men Type: BLOOD SPECIMENOrdering Facility: [facility] Address: [address] [place] [address] Performed By: #### 5 7021-8 ####[facility] LABCLIA [id number] [place] [address] CNOVSPon 12-20-2023 CNOVSP Normal [facility] metabolic 2000 panelon 12-20-2023 Albumin [Mass/Vol] 3.6 g/dL Low 3.9-4.9 [facility] Comment on above: Order Comment: Speci men Type: BLOOD SPECIMENOrdering Facility: [facility] Address: [address] [place] [address] Performed By: #### 2 4323-8 ####[facility] LABCLIA [id number] [place] [address] ALP [Catalytic activity/Vol] 59 U/L Normal 38-113 [facility] Comment on above: Order Comment: Speci men Type: BLOOD SPECIMENOrdering Facility: [facility] Address: [address] [place] [address] Performed By: #### 2 4323-8 ####[facility] LABCLIA [id number] [place] [address] ALT [Catalytic activity/Vol] 19 U/L Normal 10-54 [facility] Comment on above: Order Comment: Speci men Type: BLOOD SPECIMENOrdering Facility: [facility] Address: [address] [place] [address] Performed By: #### 2 4323-8 ####[facility] LABCLIA [id number] [place] [address] Anion gap [Moles/Vol] 8 mmol/L Low 9-18 [facility] Comment on above: Order Comment: Speci men Type: BLOOD SPECIMENOrdering Facility: [facility] Address: [address] [place] [address] Performed By: #### 2 4323-8 ####[facility] LABIA [id number] [place] [address] AST [Catalytic activity/Vol] 27 U/L Normal 14-40 [facility] Comment on above: Order Comment: Speci men Type: BLOOD SPECIMENOrdering Facility: [facility] Address: [address] [place] [address] Performed By: #### 2 4323-8 ####[facility] LABCLIA [id number] [place] [address] Bilirubin [Mass/Vol] 0.7 mg/dL Normal 0.2-1.3 [facility] Comment on above: Order Comment: Speci men Type: BLOOD SPECIMENOrdering Facility: [facility] Address: [address] [place] [address] Performed By: #### 2 4323-8 ####[facility] LABCLIA [id number] [place] [address] Calcium [Mass/Vol] 9.0 mg/dL Normal 8.5-10.2 [facility] Comment on above: Order Comment: Speci men Type: BLOOD SPECIMENOrdering Facility: [facility] Address: [address] [place] [address] Performed By: #### 2 4323-8 ####[facility] LABCLIA [id number] [place] [address] Chloride [Moles/Vol] 97 mmol/L Normal 97-105 [facility] Comment on above: Order Comment: Speci men Type: BLOOD SPECIMENOrdering Facility: [facility] Address: [address] [place] [address] Performed By: #### 2 4323-8 ####[facility] LABCLIA [id number] [place] [address] CO2 [Moles/Vol] 27 mmol/L Normal 22-30 [facility] Comment on above: Order Comment: Speci men Type: BLOOD SPECIMENOrdering Facility: [facility] Address: [address] [place] [address] Performed By: #### 2 4323-8 ####[facility] LABCLIA [id number] [place] [address] Creatinine [Mass/Vol] 1.75 mg/dL High 0.73-1.22 [facility] Comment on above: Order Comment: Vero barton Type: BLOOD SPECIMENOrdering Facility: [facility] Address: [address] [id number] Performed By: #### 2 4323-8 ####[facility] LABCLIA [id number] [place] [address] Creatinine and Glomerular filtration rate.predicted panel (S/P/Bld) 38 mL/min/1.73m??? Low >=60 [facility] Comment on above: Order Comment: Specronnie barton Type: BLOOD SPECIMENOrdering Facility: [facility] Address: [address] [place] [address] Result Comment: Viviana mated Glomerular Filtration Rate [...] actual GFR. Performed By: #### 2 4323-8 ####[facility] LABCLIA [id number] [place] [address] Glucose [Mass/Vol] 113 mg/dL High 74-99 [facility] Comment on above: Order Comment: Vero barton Type: BLOOD SPECIMENOrdering Facility: [facility] Address: [address] [id number] Result Comment: The [place] Diabetes Association (ADA) provides guidance for cutoff [...] Standards of Medical Care in Diabetes 2016, [place] Diabetes Association. Diabetes Care. 2016.39(Suppl 1). Performed By: #### 2 4323-8 ####[facility] LABCLIA [id number] [place] [address] Potassium [Moles/Vol] 4.2 mmol/L Normal 3.7-5.1 [facility] Comment on above: Order Comment: Speci men Type: BLOOD SPECIMENOrdering Facility: [facility] Address: [address] [place] [address] Performed By: #### 2 4323-8 ####[facility] LABCLIA [id number] [place] [address] Protein [Mass/Vol] 5.2 g/dL Low 6.3-8.0 [facility] Comment on above: Order Comment: Speci men Type: BLOOD SPECIMENOrdering Facility: [facility] Address: [address] [place] [address] Performed By: #### 2 4323-8 ####[facility] LABIA [id number] [place] [address] Sodium [Moles/Vol] 132 mmol/L Low 136-144 [facility] Comment on above: Order Comment: Speci men Type: BLOOD SPECIMENOrdering Facility: [facility] Address: [address] [place] [address] Performed By: #### 2 4323-8 ####[facility] LABCLIA [id number] [place] [address] Urea nitrogen [Mass/Vol] 14 mg/dL Normal 9-24 [facility] Comment on above: Order Comment: Speci men Type: BLOOD SPECIMENOrdering Facility: [facility] Address: [address] [place] [address] Performed By: #### 2 4323-8 ####[facility] LABCLIA [id number] [place] [address] Cortshaye Zhouon 12-20-19 24 Cortisol [Mass/Vol] 12.4 ug/dL Normal 4.8-19.5 [facility] Comment on above: Order Comment: Vero barton Type: BLOOD SPECIMENOrdering Facility: [facility] Address: [address] [address] Result Comment: Prov ided reference range is from 6-10 AM sample collection time.Cortisol Reference Range: 6-10 AM = 4.8-19.5 ug/dL, 4-8 PM = 2.5-11.9 ug/dL Performed By: #### 2 143-6, 3016-3 ####[facility] LABCLIA [id number] [place] [address] [place] HbA1c (Bld)on 12-20-2023 Average glucose Estimated from glycated hemoglobin (Bld) [Mass/Vol] 94 mg/dL Normal [facility] Comment on above: Order Comment: Vero barton Type: BLOOD SPECIMENOrdering Facility: [facility] Address: [address] [place] [address] Result Comment: eAG: (Estimated average glucose) is a calculated value from HgbA1c and is primary care sales representative of the average blood glucose level in the last 2-3 month period. Performed By: #### 5 5454-3 ####[facility] LABCLIA [id number] [place] [address] [place] HbA1c (Bld) [Mass fraction] 4.9 % Normal 4.3-5.6 [facility] Comment on above: Order Comment: Farrahi oralia Type: BLOOD SPECIMENOrdering Facility: [facility] Address: [address] [place] [address] Result Comment: [place] Diabetes Association guidelines indicate that patients with HgbA1c in the range 5.7-6.4% are at increased risk for development of diabetes, and intervention by lifestyle modification may be beneficial. HgbA1c greater or equal to 6.5% is considered diagnostic of diabetes. Performed By: #### 5 5454-3 ####[facility] LABCLIA [id number] [place] [address] [place] TSH SerPl-aCncon 12-20-2023 TSH Qn 4.170 m[IU]/L Normal 0.270-4.200 [facility] Comment on above: Order Comment: Speci men Type: BLOOD SPECIMENOrdering Facility: [facility] Address: [address] [place] [address] Performed By: #### 2 143-6, 3016-3 ####[facility] LABCLIA [id number] [address] OF [facility] Office Visiton 12-09-2023 Follow-up visit [id number] Juan Jose Austin 1940 M Date Provider Department Center 12/09/2023 JOSESITO GARY Family History Problem Relation Age of Onset Heart failure Mother Family Status - Relation Status Age at Mother Level of Service:73546 [place] OFFICE/OUTPATIENT ESTABLISHED MOD MDM 30 MIN Normal [facility] CBC W Auto Differential pane l (Bld)on 11-29-2023 Basophils (Bld) [#/Vol] 0.06 10*3/uL Normal <0.11 [facility] Comment on above: Order Comment: Speci men Type: BLOOD SPECIMENOrdering Facility: [facility] Address: [address] [place] [address] Performed By: #### 5 7021-8 ####[facility] LABCLIA [id number] [place] [address] Basophils/100 WBC (Bld) 1.0 % Normal [facility] Comment on above: Order Comment: Speci men Type: BLOOD SPECIMENOrdering Facility: [facility] Address: [address] [place] [address] Performed By: #### 5 7021-8 ####[facility] LABCLIA [id number] [place] [address] Differential cell count method Nom (Bld) Auto Normal [facility] Comment on above: Order Comment: Speci men Type: BLOOD SPECIMENOrdering Facility: [facility] Address: [address] [place] [address] Performed By: #### 5 7021-8 ####[facility] LABCLIA [id number] [place] [address] Eosinophils (Bld) [#/Vol] 0.08 10*3/uL Normal <0.46 [facility] Comment on above: Order Comment: Speci men Type: BLOOD SPECIMENOrdering Facility: [facility] Address: [address] [place] [address] Performed By: #### 5 7021-8 ####[facility] LABCLIA [id number] [place] [address] Eosinophils/100 WBC (Bld) 1.3 % Normal [facility] Comment on above: Order Comment: Speci men Type: BLOOD SPECIMENOrdering Facility: [facility] Address: [address] [place] [address] Performed By: #### 5 7021-8 ####[facility] LABCLIA [id number] [place] [address] Erythrocyte distribution width (RBC) [Ratio] 15.0 % Normal 11.5-15.0 [facility] Comment on above: Order Comment: Speci men Type: BLOOD SPECIMENOrdering Facility: [facility] Address: [address] [place] [address] Performed By: #### 5 7021-8 ####[facility] LABCLIA [id number] [place] [address] Hematocrit (Bld) [Volume fraction] 40.4 % Normal 39.0-51.0 [facility] Comment on above: Order Comment: Speci men Type: BLOOD SPECIMENOrdering Facility: [facility] Address: [address] [place] [address] Performed By: #### 5 7021-8 ####[facility] LABCLIA [id number] [place] [address] Hemoglobin (Bld) [Mass/Vol] 13.6 g/dL Normal 13.0-17.0 [facility] Comment on above: Order Comment: Speci men Type: BLOOD SPECIMENOrdering Facility: [facility] Address: [address] [place] [address] Performed By: #### 5 7021-8 ####[facility] LABCLIA [id number] [place] [address] Immature granulocytes (Bld) [#/Vol] 0.03 10*3/uL Normal <0.10 [facility] Comment on above: Order Comment: Speci men Type: BLOOD SPECIMENOrdering Facility: [facility] Address: [address] [place] [address] Performed By: #### 5 7021-8 ####[facility] LABCLIA [id number] [place] [address] Immature granulocytes/100 WBC (Bld) 0.5 % Normal [facility] Comment on above: Order Comment: Speci men Type: BLOOD SPECIMENOrdering Facility: [facility] Address: [address] [place] [address] Performed By: #### 5 7021-8 ####[facility] LABCLIA [id number] [place] [address] Lymphocytes (Bld) [#/Vol] 0.63 10*3/uL Low 1.00-4.00 [facility] Comment on above: Order Comment: Speci men Type: BLOOD SPECIMENOrdering Facility: [facility] Address: [address] [place] [address] Performed By: #### 5 7021-8 ####[facility] LABCLIA [id number] [place] [address] Lymphocytes/100 WBC (Bld) 10.5 % Normal [facility] Comment on above: Order Comment: Speci men Type: BLOOD SPECIMENOrdering Facility: [facility] Address: [address] [place] [address] Performed By: #### 5 7021-8 ####[facility] LABCLIA [id number] [place] [address] MCH (RBC) [Entitic mass] 27.5 pg Normal 26.0-34.0 [facility] Comment on above: Order Comment: Speci men Type: BLOOD SPECIMENOrdering Facility: [facility] Address: [address] [place] [address] Performed By: #### 5 7021-8 ####[facility] LABCLIA [id number] [place] [address] MCHC (RBC) [Mass/Vol] 33.7 g/dL Normal 30.5-36.0 [facility] Comment on above: Order Comment: Speci men Type: BLOOD SPECIMENOrdering Facility: [facility] Address: [address] [place] [address] Performed By: #### 5 7021-8 ####[facility] LABCLIA [id number] [place] [address] MCV (RBC) [Entitic vol] 81.6 fL Normal 80.0-100.0 [facility] Comment on above: Order Comment: Speci men Type: BLOOD SPECIMENOrdering Facility: [facility] Address: [address] [place] [address] Performed By: #### 5 7021-8 ####[facility] LABCLIA [id number] [place] [address] Monocytes (Bld) [#/Vol] 0.47 10*3/uL Normal <0.87 [facility] Comment on above: Order Comment: Speci men Type: BLOOD SPECIMENOrdering Facility: [facility] Address: [address] [place] [address] Performed By: #### 5 7021-8 ####[facility] LABCLIA [id number] [place] [address] Monocytes/100 WBC (Bld) 7.9 % Normal [facility] Comment on above: Order Comment: Speci men Type: BLOOD SPECIMENOrdering Facility: [facility] Address: [address] [place] [address] Performed By: #### 5 7021-8 ####[facility] LABCLIA [id number] [place] [address] Neutrophils (Bld) [#/Vol] 4.71 10*3/uL Normal 1.45-7.50 [facility] Comment on above: Order Comment: Speci men Type: BLOOD SPECIMENOrdering Facility: [facility] Address: [address] [place] [address] Performed By: #### 5 7021-8 ####[facility] LABCLIA [id number] [place] [address] Neutrophils/100 WBC (Bld) 78.8 % Normal [facility] Comment on above: Order Comment: Speci men Type: BLOOD SPECIMENOrdering Facility: [facility] Address: [address] [place] [address] Performed By: #### 5 7021-8 ####[facility] LABCLIA [id number] [place] [address] Nucleated RBC (Bld) [#/Vol] 10*3/uL Normal <0.01 [facility] Comment on above: Order Comment: Speci men Type: BLOOD SPECIMENOrdering Facility: [facility] Address: [address] [place] [address] Performed By: #### 5 7021-8 ####[facility] LABCLIA [id number] [place] [address] Nucleated RBC/100 WBC (Bld) [Ratio] 0.0 /100 WBC Normal [facility] Comment on above: Order Comment: Speci men Type: BLOOD SPECIMENOrdering Facility: [facility] Address: [address] [place] [address] Performed By: #### 5 7021-8 ####[facility] LABCLIA [id number] [place] [address] Platelet mean volume (Bld) [Entitic vol] 8.5 fL Low 9.0-12.7 [facility] Comment on above: Order Comment: Speci men Type: BLOOD SPECIMENOrdering Facility: [facility] Address: [address] [place] [address] Performed By: #### 5 7021-8 ####[facility] LABCLIA [id number] [place] [address] Platelets (Bld) [#/Vol] 234 10*3/uL Normal 150-400 [facility] Comment on above: Order Comment: Speci men Type: BLOOD SPECIMENOrdering Facility: [facility] Address: [address] [place] [address] Performed By: #### 5 7021-8 ####[facility] LABIA [id number] [place] [address] RBC (Bld) [#/Vol] 4.95 10*6/uL Normal 4.20-6.00 [facility] Comment on above: Order Comment: Speci men Type: BLOOD SPECIMENOrdering Facility: [facility] Address: [address] [place] [address] Performed By: #### 5 7021-8 ####[facility] LABIA [id number] [place] [address] WBC (Bld) [#/Vol] 5.98 10*3/uL Normal 3.70-11.00 [facility] Comment on above: Order Comment: Speci men Type: BLOOD SPECIMENOrdering Facility: [facility] Address: [address] [place] [address] Performed By: #### 5 7021-8 ####[facility] LABIA [id number] [place] [address] CNOVSPon 11-29-2023 CNOVSP Normal [facility] metabolic 2000 panelon 11-29-2023 Albumin [Mass/Vol] 3.5 g/dL Low 3.9-4.9 [facility] Comment on above: Order Comment: Speci men Type: BLOOD SPECIMENOrdering Facility: [facility] Address: [address] [place] [address] Performed By: #### 2 4323-8 ####[facility] LABCLIA [id number] [place] [address] ALP [Catalytic activity/Vol] 68 U/L Normal 38-113 [facility] Comment on above: Order Comment: Speci men Type: BLOOD SPECIMENOrdering Facility: [facility] Address: [address] [place] [address] Performed By: #### 2 4323-8 ####[facility] LABCLIA [id number] [place] [address] ALT [Catalytic activity/Vol] 15 U/L Normal 10-54 [facility] Comment on above: Order Comment: Speci men Type: BLOOD SPECIMENOrdering Facility: [facility] Address: [address] [place] [address] Performed By: #### 2 4323-8 ####[facility] LABCLIA [id number] [place] [address] Anion gap [Moles/Vol] 9 mmol/L Normal 9-18 [facility] Comment on above: Order Comment: Speci men Type: BLOOD SPECIMENOrdering Facility: [facility] Address: [address] [place] [address] Performed By: #### 2 4323-8 ####[facility] LABCLIA [id number] [place] [address] AST [Catalytic activity/Vol] 21 U/L Normal 14-40 [facility] Comment on above: Order Comment: Speci men Type: BLOOD SPECIMENOrdering Facility: [facility] Address: [address] [place] [address] Performed By: #### 2 4323-8 ####[facility] LABCLIA [id number] [place] [address] Bilirubin [Mass/Vol] 0.6 mg/dL Normal 0.2-1.3 [facility] Comment on above: Order Comment: Speci men Type: BLOOD SPECIMENOrdering Facility: [facility] Address: [address] [place] [address] Performed By: #### 2 4323-8 ####[facility] LABCLIA [id number] [place] [address] Calcium [Mass/Vol] 8.9 mg/dL Normal 8.5-10.2 [facility] Comment on above: Order Comment: Speci men Type: BLOOD SPECIMENOrdering Facility: [facility] Address: [address] [place] [address] Performed By: #### 2 4323-8 ####[facility] LABCLIA [id number] [place] [address] Chloride [Moles/Vol] 100 mmol/L Normal 97-105 [facility] Comment on above: Order Comment: Speci men Type: BLOOD SPECIMENOrdering Facility: [facility] Address: [address] [place] [address] Performed By: #### 2 4323-8 ####[facility] LABCLIA [id number] [place] [address] CO2 [Moles/Vol] 27 mmol/L Normal 22-30 [facility] Comment on above: Order Comment: Speci men Type: BLOOD SPECIMENOrdering Facility: [facility] Address: [address] [place] [address] Performed By: #### 2 4323-8 ####[facility] LABCLIA [id number] [place] [address] Creatinine [Mass/Vol] 1.87 mg/dL High 0.73-1.22 [facility] Comment on above: Order Comment: Speci men Type: BLOOD SPECIMENOrdering Facility: [facility] Address: [address] [place] [address] Performed By: #### 2 4323-8 ####[facility] LABCLIA [id number] [place] [address] Creatinine and Glomerular filtration rate.predicted panel (S/P/Bld) 35 mL/min/1.73m??? Low >=60 [facility] Comment on above: Order Comment: Vero barton Type: BLOOD SPECIMENOrdering Facility: [facility] Address: [address] [place] [address] Result Comment: Viviana mated Glomerular Filtration Rate [...] actual GFR. Performed By: #### 2 4323-8 ####[facility] LABCLIA [id number] [place] [address] Glucose [Mass/Vol] 126 mg/dL High 74-99 [facility] Comment on above: Order Comment: Specronnie barton Type: BLOOD SPECIMENOrdering Facility: [facility] Address: [address] [place] [address] Result Comment: The [place] Diabetes Association (ADA) provides guidance for cutoff [...] Standards of Medical Care in Diabetes 2016, [place] [employer] Association. Diabetes Care. 2016.39(Suppl 1). Performed By: #### 2 4323-8 ####[facility] LABCLIA [id number] [place] [address] Potassium [Moles/Vol] 3.5 mmol/L Low 3.7-5.1 [facility] Comment on above: Order Comment: Speci men Type: BLOOD SPECIMENOrdering Facility: [facility] Address: [address] [place] [address] Performed By: #### 2 4323-8 ####[facility] LABCLIA [id number] [place] [address] Protein [Mass/Vol] 5.4 g/dL Low 6.3-8.0 [facility] Comment on above: Order Comment: Speci men Type: BLOOD SPECIMENOrdering Facility: [facility] Address: [address] [place] [address] Performed By: #### 2 4323-8 ####[facility] LABCLIA [id number] [place] [address] Sodium [Moles/Vol] 136 mmol/L Normal 136-144 [facility] Comment on above: Order Comment: Speci men Type: BLOOD SPECIMENOrdering Facility: [facility] Address: [address] [place] [address] Performed By: #### 2 4323-8 ####[facility] LABCLIA [id number] [place] [address] Urea nitrogen [Mass/Vol] 12 mg/dL Normal 9-24 [facility] Comment on above: Order Comment: Speci men Type: BLOOD SPECIMENOrdering Facility: [facility] Address: [address] [place] [address] Performed By: #### 2 4323-8 ####[facility] LABCLIA [id number] [place] [address] Cortis SerPl-mCncon 11-29-19 24 Cortisol [Mass/Vol] 11.1 ug/dL Normal 4.8-19.5 [facility] Comment on above: Order Comment: Speci men Type: BLOOD SPECIMENOrdering Facility: [facility] Address: [address], [place] [address] Result Comment: Prov ided reference range is from 6-10 AM sample collection time.Cortisol Reference Range: 6-10 AM = 4.8-19.5 ug/dL, 4-8 PM = 2.5-11.9 ug/dL Performed By: #### 3 016-3, 2143-6 ####[facility] LABCLIA [id number] [address] OF [facility] HbA1c (Bld)on 11-29-2023 Average glucose Estimated from glycated hemoglobin (Bld) [Mass/Vol] 100 mg/dL Normal [facility] Comment on above: Order Comment: Vero barton Type: BLOOD SPECIMENOrdering Facility: [facility] Address: [address] [address] Result Comment: eAG: (Estimated average glucose) is a calculated value from HgbA1c and is primary care sales representative of the average blood glucose level in the last 2-3 month period. Performed By: #### 5 5454-3 ####[facility] [id number] [address] [place] [facility] HbA1c (Bld) [Mass fraction] 5.1 % Normal 4.3-5.6 [facility] Comment on above: Order Comment: Vero barton Type: BLOOD SPECIMENOrdering Facility: [facility] Address: [address] [address] Result Comment: [place] Diabetes Association guidelines indicate that patients with HgbA1c in the range 5.7-6.4% are at increased risk for development of diabetes, and intervention by lifestyle modification may be beneficial. HgbA1c greater or equal to 6.5% is considered diagnostic of diabetes. Performed By: #### 5 5454-3 ####[facility] LABIA [id number] [place] [address] [place] TSH SerPl-aCncon 11-29-2023 TSH Qn 4.370 m[IU]/L High 0.270-4.200 [facility] Comment on above: Order Comment: Vero barton Type: BLOOD SPECIMENOrdering Facility: [facility] Address: [address] [place], [place] [address], [place] [address] Performed By: #### 3 016-3, 2143-6 ####[facility] LABCLIA [id number] [facility] [address] [place] CNPNon 11-21-2023 CNPN Normal [facility] CNPNon 11-14-2023 CNPN Normal [facility] CNPNon 11-06-2023 CNPN Normal [facility] CBC AND AUTO DIFFon 11-02-19 ABSOLUTE BASOPHIL 0.0 X10E9/L Normal 0.0-0.2 [facility] Comment on above: Performed By: #### C BCA, 34457-1, CMP, 3040-3, 19254-8, 63435- 9 #### [facility] ([id number]) [address] [place] [address] ABSOLUTE NEUTROPHIL 8.0 X10E9/L High 1.5-6.6 [facility] Comment on above: Performed By: #### C BCA, 23942-2, CMP, 3040-3, 46209-1, 28097- 9 #### [facility] ([id number]) [address] [place] [address] Basophils/100 WBC (Bld) 0.3 % Normal [facility] Comment on above: Performed By: #### C BCA, 99070-4, CMP, 3040-3, 43575-6, 14775- 9 #### [facility] ([id number]) [address] [place] [address] Eosinophils (Bld) [#/Vol] 0.1 10*3/uL Normal 0.0-0.4 [facility] Comment on above: Performed By: #### C BCA, 09804-6, CMP, 3040-3, 12697-6, 47817- 9 #### [facility] ([id number]) [address] [place] [address] Eosinophils/100 WBC (Bld) 0.9 % Normal [facility] Comment on above: Performed By: #### C BCA, 79346-5, CMP, 3040-3, 97740-2, 77753- 9 #### [facility] ([id number]) [address] [place] [address] Erythrocyte distribution width (RBC) [Ratio] 14.8 % Normal 11.5-15.0 [facility] Comment on above: Performed By: #### C BCA, 20566-0, CMP, 3040-3, 23628-5, - 9 #### [facility] ([id number]) [address] [place], [place] [address] Hematocrit (Bld) [Volume fraction] 40.4 % Normal 39-49 [facility] Comment on above: Performed By: #### C BCA, 58512-6, CMP, 3040-3, 58766-0, - #### [facility] ([id number]) [address] [place] [address] Hemoglobin (Bld) [Mass/Vol] 14.1 g/dL Normal 13.0-17.0 [facility] Comment on above: Performed By: #### C BCA, 52266-4, CMP, 3040-3, 16228-5, 40982- 9 #### [facility] ([id number]) [address] [place] [address] Lymphocytes (Bld) [#/Vol] 0.4 10*3/uL Low 1.0-3.5 [facility] Comment on above: Performed By: #### C BCA, 16469-5, CMP, 3040-3, 75683-8, 90484- 9 #### [facility] ([id number]) [address] [place] [address] Lymphocytes/100 WBC (Bld) 4.7 % Normal [facility] Comment on above: Performed By: #### C BCA, 61471-4, CMP, 3040-3, 87813-5, #### [facility] ([id number]) [address] [place] [address] MCH (RBC) [Entitic mass] 27.5 pg Normal 27-34 [facility] Comment on above: Performed By: #### C BCA, 64463-5, CMP, 3040-3, 96977-7, - #### [facility] ([id number]) [address] [place] [address] MCHC (RBC) [Mass/Vol] 35.0 g/dL Normal 32-36 [facility] Comment on above: Performed By: #### Emir BCA, 51524-8, CMP, 3040-3, 86758-3, - #### [facility] ([id number]) [address] [place] [address] MCV (RBC) [Entitic vol] 79 fL Low 80-100 [facility] Comment on above: Performed By: #### Emir BCA, 59269-0, CMP, 3040-3, 11840-1, - #### [facility] ([id number]) [address] [place] [address] Monocytes (Bld) [#/Vol] 0.7 10*3/uL Normal 0-0.9 [facility] Comment on above: Performed By: #### Emir BCA, 01680-0, CMP, 3040-3, 50847-8, - #### [facility] ([id number]) [address] [place] [address] Monocytes/100 WBC (Bld) 7.9 % Normal [facility] Comment on above: Performed By: #### C BCA, 16189-2, CMP, 3040-3, 23205-4, - #### [facility] ([id number]) [address] [place] [address] Neutrophils/100 WBC (Bld) 86.2 % Normal [facility] Comment on above: Performed By: #### C BCA, 83387-7, CMP, 3040-3, 84896-4, 54431- 9 #### [facility] ([id number]) [address] [place], [place] [address] Platelet mean volume (Bld) [Entitic vol] 6.9 fL Low 7-12 [facility] Comment on above: Performed By: #### C BCA, 50038-4, CMP, 3040-3, 47639-0, 12452- 9 #### [facility] ([id number]) [address] [place], [place] [address] Platelets (Bld) [#/Vol] 345 10*3/uL Normal 150-450 [facility] Comment on above: Performed By: #### C BCA, 49789-1, CMP, 3040-3, 05819-4, 90771- #### [facility] ([id number]) [address] [place], [place] [address] RBC COUNT 5.13 X10E12/L Normal 4.10-5.70 [facility] Comment on above: Performed By: #### C BCA, 10938-0, CMP, 3040-3, 18582-4, 34255- 9 #### [facility] ([id number]) [address] [place], [place] [id number] WBC (Bld) [#/Vol] 9.3 10*3/uL Normal 4.0-11.0 [facility] Comment on above: Performed By: #### C BCA, 39715-2, CMP, 3040-3, 16318-3, 42944- 9 #### [facility] ([id number]) [address] [place], [place] [id number] COMPREHENSIVE METABOLIC PANE Taj 11-02-2023 Albumin [Mass/Vol] 3.2 g/dL Normal 3.2-5.3 [facility] Comment on above: Performed By: #### C BCA, 98830-2, CMP, 3040-3, 58664-2, 43436- 9 #### [facility] ([id number]) [address] [place] [address] ALP [Catalytic activity/Vol] 54 U/L Normal 39-130 [facility] Comment on above: Performed By: #### C BCA, 02466-1, CMP, 3040-3, 79540-5, 03583- 9 #### [facility] ([id number]) [address] [place] [address]123 ALT [Catalytic activity/Vol] 19 U/L Normal 0-40 [facility] Comment on above: Performed By: #### C BCA, 30883-2, CMP, 3040-3, 76746-0, 34232- 9 #### [facility] ([id number]) [address] [place] [address]9907 Anion gap [Moles/Vol] 9 mmol/L Normal 5-15 [facility] Comment on above: Performed By: #### C BCA, 43361-7, CMP, 3040-3, 71121-1, 84615- 9 #### [facility] ([id number]) [address] [place] [address] 91816 AST [Catalytic activity/Vol] 24 U/L Normal 0-41 [facility] Comment on above: Performed By: #### C BCA, 79159-2, CMP, 3040-3, 58461-2, 56523- 9 #### [facility] ([id number]) [address] [place] [address] 63274 Bilirubin [Mass/Vol] 0.9 mg/dL Normal 0.3-1.2 [facility] Comment on above: Performed By: #### C BCA, 70298-7, CMP, 3040-3, 54931-9, 39944- 9 #### [facility] ([id number]) [address] [place] [address] 95245 Calcium [Mass/Vol] 8.3 mg/dL Low 8.5-10.5 [facility] Comment on above: Performed By: #### C BCA, 66095-1, CMP, 3040-3, 90538-4, 56397- 9 #### [facility] ([id number]) [address] [place] [address] 74824 Chloride [Moles/Vol] 99 mmol/L Normal 98-109 [facility] Comment on above: Performed By: #### C BCA, 73184-5, CMP, 3040-3, 25060-8, 16930- 9 #### [facility] ([id number]) [address] [place] [address] 22217 CO2 [Moles/Vol] 24 mmol/L Normal 22-32 [facility] Comment on above: Performed By: #### C BCA, 57715-0, CMP, 3040-3, 81611-6, 04906- 9 #### [facility] ([id number]) [address] [place] [address] 51813 Creatinine [Mass/Vol] 1.85 mg/dL High 0.70-1.20 [facility] Comment on above: Result Comment: METH OD TRACEABLE TO IDMS STANDARD Performed By: #### C BCA, 74577-4, CMP, 3040-3, 96326-3, 35332-3 #### [facility] ([id number]) [address] [place] [address] 10019 GFR/1.73 sq M.predicted among non-blacks MDRD (S/P/Bld) [Vol rate/Area] 35 mL/min/{1.73_m2} Low >59 [facility] Comment on above: Result Comment: Reported eGFR is based on the CKD-EPI 2020 equation that does not use a race coefficient. Performed By: #### C BCA, 62508-2, CMP, 3040-3, 16471-2, 42969-3 #### [facility] ([id number]) [address] [place] [address] 32578 Glucose [Mass/Vol] 118 mg/dL High 65-99 [facility] Comment on above: Performed By: #### C BCA, 32925-4, CMP, 3040-3, 66750-6, 49695- 9 #### [facility] ([id number]) [address] [place] [address] 72501 Potassium [Moles/Vol] 3.9 mmol/L Normal 3.5-5.0 [facility] Comment on above: Performed By: #### C BCA, 31194-2, CMP, 3040-3, 43498-6, 42696- 9 #### [facility] ([id number]) [address] [place] [address] 81064 Protein [Mass/Vol] 5.5 g/dL Low 6.0-8.0 [facility] Comment on above: Performed By: #### C BCA, 38085-4, CMP, 3040-3, 72549-1, 78036- 9 #### [facility] ([id number]) [address] [place] [address] 97455 Sodium [Moles/Vol] 132 mmol/L Low 134-146 [facility] Comment on above: Performed By: #### C BCA, 91964-3, CMP, 3040-3, 96621-5, 42450- 9 #### [facility] ([id number]) [address] [place] [address] 25140 Urea nitrogen [Mass/Vol] 30 mg/dL High 5-27 [facility] Comment on above: Performed By: #### C BCA, 61955-9, CMP, 3040-3, 82519-2, 39649- 9 #### [facility] ([id number]) [address] [place] [address] ABDOMEN AND PELVIS W CONT on [...] Licea MD on 11/02/2023 2:43 PM Normal [facility] LIPASEon 11-02-2023 Lipase [Catalytic activity/Vol] 45 U/L High 17-40 [facility] Comment on above: Performed By: #### C BCA, 57769-3, CMP, 3040-3, 92162-0, 9 #### [facility] ([id number]) [address] [place] [address] 33325 Lactate (P michelle) [Moles/Vol]o n 11-02-2023 LACTATE W/REFLEX 1.2 mmol/L Normal 0.4-2.0 [facility] Comment on above: Result Comment: Result did not trigger repeat Lactate, re-order if needed. Performed By: #### C BCA, 40096-2, CMP, 3040-3, , 65419-9 #### [facility] ([id number]) [address] [place] [address] [place] [address] MAGNESIUMon 11-02-2023 Magnesium [Mass/Vol] 1.7 mg/dL Low 1.8-2.6 [facility] Comment on above: Performed By: #### C BCA, 62083-1, CMP, 3040-3, 51786-1, 25222- 9 #### [facility] ([id number]) [address] [place] [address] SARS/FLU A+B/RSV by NAAT/Mol ecularon 11-02-2023 SARS/FLU [...] operators who are performing tests using either [employer] or [employer] systems and is limited to laboratories that [...] specimen repeat. Fact Sheet for Healthcare Providers: https://www.[facility].gov/mo ritesh/926591/download Fact Sheet for Patients: https://www.[facility].gov/mo ritesh/229002/download Normal [facility] Comment on above: Performed By: #### C OVFLR #### [facility] ([id number]) [address] [place] [address] 16050 TROPONIN Ion 11-02-2023 Troponin I.cardiac [Mass/Vol] 0.07 ng/mL High 0.00-0.04 [facility] Comment on above: Result Comment: Concentrations greater than or equal to 0.05 ng/ml are considered elevated. Elevations of Troponin may be due to causes other than myocardial ischemia. Recommend serial Troponin testing be performed. Performed By: #### 1 0839-9 #### [facility] ([id number]) [address] [place] [address] 34349 Troponin I.cardiac [Mass/Vol] 0.07 ng/mL High 0.00-0.04 [facility] Comment on above: Result Comment: Concentrations greater than or equal to 0.05 ng/ml are considered elevated. Elevations of Troponin may be due to causes other than myocardial ischemia. Recommend serial Troponin testing be performed. Performed By: #### C BCA, 24418-0, CMP, 3040-3, 73890-6, 93882-6 #### [facility] ([id number]) [address] [place] [address] 19581 URN MACROSCOPIC NURon 2023 BILIRUBIN JUDY Negative Normal NEG [facility] Comment on above: Performed By: #### N UM #### [facility] ([id number]) [address] [place] [address] 45333 BLOOD/HGB JUDY Trace Abnormal NEG [facility] Comment on above: Performed By: #### N UM #### [facility] ([id number]) [address] [place] [address] 11797 GLUCOSE JUDY Negative Normal NEG [facility] Comment on above: Performed By: #### N UM #### [facility] ([id number]) [address] [place] [address] 96594 KETONES JUDY Negative Normal NEG [facility] Comment on above: Performed By: #### N UM #### [facility] ([id number]) [address] [place] [address] 47340 LEUKOCYTE ESTERASE JUDY Negative Normal NEG [facility] Comment on above: Performed By: #### N UM #### [facility] ([id number]) [address] [place] [address] 45438 NITRITE JUDY Negative Normal NEG [facility] Comment on above: Performed By: #### N UM #### [facility] ([id number]) [address] [place] [address] 90742 PH JUDY 5.5 Normal 5.0-8.5 [facility] Comment on above: Performed By: #### N UM #### [facility] ([id number]) [address] [place] [address] 89220 PROTEIN JUDY Negative Normal NEG [facility] Comment on above: Performed By: #### N UM #### [facility] ([id number]) [address] [place] [address] 77866 SPECIFIC GRAVITY JUDY <=1.005 Normal 1.003-1.035 [facility] Comment on above: Performed By: #### N UM #### [facility] ([id number]) [address] [place] [address] 10033 UROBILINOGEN JUDY 0.2 eu/dL Normal <1.1 [facility] Comment on above: Performed By: #### N UM #### [facility] ([id number]) [address] [place] [address] 35780 CNPNon 10-29-2023 CNPN Normal [facility] CBC W Auto Differential pane l (Bld)on 10-10-2023 Basophils (Bld) [#/Vol] 0.08 10*3/uL Normal <0.11 [facility] Comment on above: Order Comment: Speci men Type: BLOOD SPECIMENOrdering Facility: [facility] Address: [address] [place] [address] Performed By: #### 5 7021-8 ####[facility] LABCLIA [id number] [place] [address] Basophils/100 WBC (Bld) 1.0 % Normal [facility] Comment on above: Order Comment: Speci men Type: BLOOD SPECIMENOrdering Facility: [facility] Address: [address] [place] [address] Performed By: #### 5 7021-8 ####[facility] LABCLIA [id number] [place] [address] Differential cell count method Nom (Bld) Auto Normal [facility] Comment on above: Order Comment: Speci men Type: BLOOD SPECIMENOrdering Facility: [facility] Address: [address] [place] [address] Performed By: #### 5 7021-8 ####[facility] LABCLIA [id number] [place] [address] Eosinophils (Bld) [#/Vol] 0.14 10*3/uL Normal <0.46 [facility] Comment on above: Order Comment: Speci men Type: BLOOD SPECIMENOrdering Facility: [facility] Address: [address] [place] [address] Performed By: #### 5 7021-8 ####[facility] LABCLIA [id number] [place] [address] Eosinophils/100 WBC (Bld) 1.8 % Normal [facility] Comment on above: Order Comment: Speci men Type: BLOOD SPECIMENOrdering Facility: [facility] Address: [address] [place] [address] Performed By: #### 5 7021-8 ####[facility] LABCLIA [id number] [place] [address] Erythrocyte distribution width (RBC) [Ratio] 14.0 % Normal 11.5-15.0 [facility] Comment on above: Order Comment: Speci men Type: BLOOD SPECIMENOrdering Facility: [facility] Address: [address] [place] [address] Performed By: #### 5 7021-8 ####[facility] LABCLIA [id number] [place] [address] Hematocrit (Bld) [Volume fraction] 40.5 % Normal 39.0-51.0 [facility] Comment on above: Order Comment: Speci men Type: BLOOD SPECIMENOrdering Facility: [facility] Address: [address] [place] [address] Performed By: #### 5 7021-8 ####[facility] LABCLIA [id number] [place] [address] Hemoglobin (Bld) [Mass/Vol] 13.1 g/dL Normal 13.0-17.0 [facility] Comment on above: Order Comment: Speci men Type: BLOOD SPECIMENOrdering Facility: [facility] Address: [address] [place] [address] Performed By: #### 5 7021-8 ####[facility] LABCLIA [id number] [place] [address] Immature granulocytes (Bld) [#/Vol] 0.04 10*3/uL Normal <0.10 [facility] Comment on above: Order Comment: Speci men Type: BLOOD SPECIMENOrdering Facility: [facility] Address: [address] [place] [address] Performed By: #### 5 7021-8 ####[facility] LABCLIA [id number] [place] [address] Immature granulocytes/100 WBC (Bld) 0.5 % Normal [facility] Comment on above: Order Comment: Speci men Type: BLOOD SPECIMENOrdering Facility: [facility] Address: [address] [place] [address] Performed By: #### 5 7021-8 ####[facility] LABCLIA [id number] [place] [address] Lymphocytes (Bld) [#/Vol] 0.81 10*3/uL Low 1.00-4.00 [facility] Comment on above: Order Comment: Speci men Type: BLOOD SPECIMENOrdering Facility: [facility] Address: [address] [place] [address] Performed By: #### 5 7021-8 ####[facility] LABCLIA [id number] [place] [address] Lymphocytes/100 WBC (Bld) 10.3 % Normal [facility] Comment on above: Order Comment: Speci men Type: BLOOD SPECIMENOrdering Facility: [facility] Address: [address] [place] [address] Performed By: #### 5 7021-8 ####[facility] LABCLIA [id number] [place] [address] MCH (RBC) [Entitic mass] 27.8 pg Normal 26.0-34.0 [facility] Comment on above: Order Comment: Speci men Type: BLOOD SPECIMENOrdering Facility: [facility] Address: [address] [place] [address] Performed By: #### 5 7021-8 ####[facility] LABCLIA [id number] [place] [address] MCHC (RBC) [Mass/Vol] 32.3 g/dL Normal 30.5-36.0 [facility] Comment on above: Order Comment: Speci men Type: BLOOD SPECIMENOrdering Facility: [facility] Address: [address] [place] [address] Performed By: #### 5 7021-8 ####[facility] LABCLIA [id number] [place] [address] MCV (RBC) [Entitic vol] 85.8 fL Normal 80.0-100.0 [facility] Comment on above: Order Comment: Speci men Type: BLOOD SPECIMENOrdering Facility: [facility] Address: [address] [place] [address] Performed By: #### 5 7021-8 ####[facility] LABCLIA [id number] [place] [address] Monocytes (Bld) [#/Vol] 0.55 10*3/uL Normal <0.87 [facility] Comment on above: Order Comment: Speci men Type: BLOOD SPECIMENOrdering Facility: [facility] Address: [address] [place] [address] Performed By: #### 5 7021-8 ####[facility] LABCLIA [id number] [place] [address] Monocytes/100 WBC (Bld) 7.0 % Normal [facility] Comment on above: Order Comment: Speci men Type: BLOOD SPECIMENOrdering Facility: [facility] Address: [address] [place] [address] Performed By: #### 5 7021-8 ####[facility] LABCLIA [id number] [place] [address] Neutrophils (Bld) [#/Vol] 6.21 10*3/uL Normal 1.45-7.50 [facility] Comment on above: Order Comment: Speci men Type: BLOOD SPECIMENOrdering Facility: [facility] Address: [address] [place] [address] Performed By: #### 5 7021-8 ####[facility] LABCLIA [id number] [place] [address] Neutrophils/100 WBC (Bld) 79.4 % Normal [facility] Comment on above: Order Comment: Speci men Type: BLOOD SPECIMENOrdering Facility: [facility] Address: [address] [place] [address] Performed By: #### 5 7021-8 ####[facility] LABCLIA [id number] [place] [address] Nucleated RBC (Bld) [#/Vol] 10*3/uL Normal <0.01 [facility] Comment on above: Order Comment: Speci men Type: BLOOD SPECIMENOrdering Facility: [facility] Address: [address] [place] [address] Performed By: #### 5 7021-8 ####[facility] LABCLIA [id number] [place] [address] Nucleated RBC/100 WBC (Bld) [Ratio] 0.0 /100 WBC Normal [facility] Comment on above: Order Comment: Speci men Type: BLOOD SPECIMENOrdering Facility: [facility] Address: [address] [place] [address] Performed By: #### 5 7021-8 ####[facility] LABCLIA [id number] [place] [address] Platelet mean volume (Bld) [Entitic vol] 8.6 fL Low 9.0-12.7 [facility] Comment on above: Order Comment: Speci men Type: BLOOD SPECIMENOrdering Facility: [facility] Address: [address] [place] [address] Performed By: #### 5 7021-8 ####[facility] LABIA [id number] [place] [address] Platelets (Bld) [#/Vol] 253 10*3/uL Normal 150-400 [facility] Comment on above: Order Comment: Speci men Type: BLOOD SPECIMENOrdering Facility: [facility] Address: [address] [place] [address] Performed By: #### 5 7021-8 ####[facility] LABIA [id number] [place] [address] RBC (Bld) [#/Vol] 4.72 10*6/uL Normal 4.20-6.00 [facility] Comment on above: Order Comment: Speci men Type: BLOOD SPECIMENOrdering Facility: [facility] Address: [address] [place] [address] Performed By: #### 5 7021-8 ####[facility] LABIA [id number] [place] [address] WBC (Bld) [#/Vol] 7.83 10*3/uL Normal 3.70-11.00 [facility] Comment on above: Order Comment: Speci men Type: BLOOD SPECIMENOrdering Facility: [facility] Address: [address] [place] [address] Performed By: #### 5 7021-8 ####[facility] LABIA [id number] [place] [address] CNOVSPon 10-10-2023 CNOVSP Normal [facility] Comprehensive metabolic 2000 panelon 10-10-2023 Albumin [Mass/Vol] 4.0 g/dL Normal 3.9-4.9 [facility] Comment on above: Order Comment: Speci men Type: BLOOD SPECIMENOrdering Facility: [facility] Address: [address] [place] [address] Performed By: #### 2 4323-8 ####[facility] LABIA [id number] [place] [address] ALP [Catalytic activity/Vol] 75 U/L Normal 38-113 [facility] Comment on above: Order Comment: Speci men Type: BLOOD SPECIMENOrdering Facility: [facility] Address: [address] [place] [address] Performed By: #### 2 4323-8 ####[facility] LABCLIA [id number] [place] [address] ALT [Catalytic activity/Vol] 15 U/L Normal 10-54 [facility] Comment on above: Order Comment: Speci men Type: BLOOD SPECIMENOrdering Facility: [facility] Address: [address] [place] [address] Performed By: #### 2 4323-8 ####[facility] LABCLIA [id number] [place] [address] Anion gap [Moles/Vol] 8 mmol/L Low 9-18 [facility] Comment on above: Order Comment: Speci men Type: BLOOD SPECIMENOrdering Facility: [facility] Address: [address] [place] [address] Performed By: #### 2 4323-8 ####[facility] LABCLIA [id number] [place] [address] AST [Catalytic activity/Vol] 23 U/L Normal 14-40 [facility] Comment on above: Order Comment: Speci men Type: BLOOD SPECIMENOrdering Facility: [facility] Address: [address] [place] [address] Performed By: #### 2 4323-8 ####[facility] LABCLIA [id number] [place] [address] Bilirubin [Mass/Vol] 0.4 mg/dL Normal 0.2-1.3 [facility] Comment on above: Order Comment: Speci men Type: BLOOD SPECIMENOrdering Facility: [facility] Address: [address] [place] [address] Performed By: #### 2 4323-8 ####[facility] LABCLIA [id number] [place] [address] Calcium [Mass/Vol] 9.0 mg/dL Normal 8.5-10.2 [facility] Comment on above: Order Comment: Speci men Type: BLOOD SPECIMENOrdering Facility: [facility] Address: [address] [place] [address] Performed By: #### 2 4323-8 ####[facility] LABCLIA [id number] [place] [address] Chloride [Moles/Vol] 99 mmol/L Normal 97-105 [facility] Comment on above: Order Comment: Speci men Type: BLOOD SPECIMENOrdering Facility: [facility] Address: [address] [place] [address] Performed By: #### 2 4323-8 ####[facility] LABCLIA [id number] [place] [address] CO2 [Moles/Vol] 27 mmol/L Normal 22-30 [facility] Comment on above: Order Comment: Speci men Type: BLOOD SPECIMENOrdering Facility: [facility] Address: [address] [place] [address] Performed By: #### 2 4323-8 ####[facility] LABCLIA [id number] [place] [address] Creatinine [Mass/Vol] 1.78 mg/dL High 0.73-1.22 [facility] Comment on above: Order Comment: Speci men Type: BLOOD SPECIMENOrdering Facility: [facility] Address: [address] [place] [address] Performed By: #### 2 4323-8 ####[facility] LABCLIA [id number] [place] [address] Creatinine and Glomerular filtration rate.predicted panel (S/P/Bld) 37 mL/min/1.73m??? Low >=60 [facility] Comment on above: Order Comment: Speci men Type: BLOOD SPECIMENOrdering Facility: [facility] Address: [address] [place] [address] Result Comment: Viviana mated Glomerular Filtration Rate [...] actual GFR. Performed By: #### 2 4323-8 ####[facility] LABCLIA [id number] [place] [address] Glucose [Mass/Vol] 109 mg/dL High 74-99 [facility] Comment on above: Order Comment: Vero barton Type: BLOOD SPECIMENOrdering Facility: [facility] Address: [address] [place] [id number] Result Comment: The [place] [employer] (ADA) provides guidance for cutoff [...] Standards of Medical Care in Diabetes 2016, [place] [employer]. Diabetes Care. 2016.39(Suppl 1). Performed By: #### 2 4323-8 ####[facility] LABCLIA [id number] [place] [address] Potassium [Moles/Vol] 3.9 mmol/L Normal 3.7-5.1 [facility] Comment on above: Order Comment: Vero barton Type: BLOOD SPECIMENOrdering Facility: [facility] Address: [address] [place] [address] Performed By: #### 2 4323-8 ####[facility] LABCLIA [id number] [place] [address] Protein [Mass/Vol] 6.0 g/dL Low 6.3-8.0 [facility] Comment on above: Order Comment: Vero barton Type: BLOOD SPECIMENOrdering Facility: [facility] Address: [address] [place] [address] Performed By: #### 2 4323-8 ####[facility] LABCLIA [id number] [place] [address] Sodium [Moles/Vol] 134 mmol/L Low 136-144 [facility] Comment on above: Order Comment: Speci men Type: BLOOD SPECIMENOrdering Facility: [facility] Address: [address] [place] [address] Performed By: #### 2 4323-8 ####[facility] LABCLIA [id number] [place] [address] Urea nitrogen [Mass/Vol] 29 mg/dL High 9-24 [facility] Comment on above: Order Comment: Speci men Type: BLOOD SPECIMENOrdering Facility: [facility] Address: [address] [place] [address] Performed By: #### 2 4323-8 ####[facility] LABCLIA [id number] [place] [address] Cortis Nainal-Celena 10-10-20 Cortisol [Mass/Vol] 8.6 ug/dL Normal 4.8-19.5 [facility] Comment on above: Order Comment: Speci men Type: BLOOD SPECIMENOrdering Facility: [facility] Address: [address] [place] [address] Result Comment: Prov ided reference range is from 6-10 AM sample collection time.Cortisol Reference Range: 6-10 AM = 4.8-19.5 ug/dL, 4-8 PM = 2.5-11.9 ug/dL Performed By: #### 2 143-6, 3016-3 ####[facility] LABCLIA [id number] [facility] [id number] [address] [place] HbA1c (Bld)on 10-10-2023 Average glucose Estimated from glycated hemoglobin (Bld) [Mass/Vol] 105 mg/dL Normal [facility] Comment on above: Order Comment: Speci men Type: BLOOD SPECIMENOrdering Facility: [facility] Address: [address] [place] [address] Result Comment: eAG: (Estimated average glucose) is a calculated value from HgbA1c and is primary care sales representative of the average blood glucose level in the last 2-3 month period. Performed By: #### 5 5454-3 ####[facility] LABCLIA [id number] [place] [address] [place] HbA1c (Bld) [Mass fraction] 5.3 % Normal 4.3-5.6 [facility] Comment on above: Order Comment: Speci men Type: BLOOD SPECIMENOrdering Facility: [facility] Address: [address] [place] [address] Result Comment: [place] [place] [employer] guidelines indicate that patients with HgbA1c in the range 5.7-6.4% are at increased risk for development of diabetes, and intervention by lifestyle modification may be beneficial. HgbA1c greater or equal to 6.5% is considered diagnostic of diabetes. Performed By: #### 5 5454-3 ####[facility] LABCLIA [id number] [place] [address] [place] TSH SerPl-aCncon 10-10-2023 TSH Qn 2.900 m[IU]/L Normal 0.270-4.200 [facility] Comment on above: Order Comment: Speci men Type: BLOOD SPECIMENOrdering Facility: [facility] Address: [address] [place] [address] Performed By: #### 2 143-6, 3016-3 ####[facility] LABCLIA [id number] [place] [address] [place] CBC W Auto Differential pane l (Bld)on 09-19-2023 Basophils (Bld) [#/Vol] 0.05 10*3/uL Normal <0.11 [facility] Comment on above: Order Comment: Speci men Type: BLOOD SPECIMENOrdering Facility: [facility] Address: [address] [place] [address] Performed By: #### 5 7021-8 ####[facility] LABCLIA [id number] [place] [address] Basophils/100 WBC (Bld) 0.5 % Normal [facility] Comment on above: Order Comment: Speci men Type: BLOOD SPECIMENOrdering Facility: [facility] Address: [address] [place] [address] Performed By: #### 5 7021-8 ####[facility] LABCLIA [id number] [place] [address] Differential cell count method Nom (Bld) Auto Normal [facility] Comment on above: Order Comment: Speci men Type: BLOOD SPECIMENOrdering Facility: [facility] Address: [address] [place] [address] Performed By: #### 5 7021-8 ####[facility] LABCLIA [id number] [place] [address] Eosinophils (Bld) [#/Vol] 0.15 10*3/uL Normal <0.46 [facility] Comment on above: Order Comment: Speci men Type: BLOOD SPECIMENOrdering Facility: [facility] Address: [address] [place] [address] Performed By: #### 5 7021-8 ####[facility] LABCLIA [id number] [place] [address] Eosinophils/100 WBC (Bld) 1.6 % Normal [facility] Comment on above: Order Comment: Speci men Type: BLOOD SPECIMENOrdering Facility: [facility] Address: [address] [place] [address] Performed By: #### 5 7021-8 ####[facility] LABCLIA [id number] [place] [address] Erythrocyte distribution width (RBC) [Ratio] 14.2 % Normal 11.5-15.0 [facility] Comment on above: Order Comment: Speci men Type: BLOOD SPECIMENOrdering Facility: [facility] Address: [address] [place] [address] Performed By: #### 5 7021-8 ####[facility] LABCLIA [id number] [place] [address] Hematocrit (Bld) [Volume fraction] 38.0 % Low 39.0-51.0 [facility] Comment on above: Order Comment: Speci men Type: BLOOD SPECIMENOrdering Facility: [facility] Address: [address] [place] [address] Performed By: #### 5 7021-8 ####[facility] LABCLIA [id number] [place] [address] Hemoglobin (Bld) [Mass/Vol] 12.7 g/dL Low 13.0-17.0 [facility] Comment on above: Order Comment: Speci men Type: BLOOD SPECIMENOrdering Facility: [facility] Address: [address] [place] [address] Performed By: #### 5 7021-8 ####[facility] LABCLIA [id number] [place] [address] Immature granulocytes (Bld) [#/Vol] 0.05 10*3/uL Normal <0.10 [facility] Comment on above: Order Comment: Speci men Type: BLOOD SPECIMENOrdering Facility: [facility] Address: [address] [place] [address] Performed By: #### 5 7021-8 ####[facility] LABCLIA [id number] [place] [address] Immature granulocytes/100 WBC (Bld) 0.5 % Normal [facility] Comment on above: Order Comment: Speci men Type: BLOOD SPECIMENOrdering Facility: [facility] Address: [address] [place] [address] Performed By: #### 5 7021-8 ####[facility] LABCLIA [id number] [place] [address] Lymphocytes (Bld) [#/Vol] 0.47 10*3/uL Low 1.00-4.00 [facility] Comment on above: Order Comment: Speci men Type: BLOOD SPECIMENOrdering Facility: [facility] Address: [address] [place] [address] Performed By: #### 5 7021-8 ####[facility] LABCLIA [id number] [place] [address] Lymphocytes/100 WBC (Bld) 5.0 % Normal [facility] Comment on above: Order Comment: Speci men Type: BLOOD SPECIMENOrdering Facility: [facility] Address: [address] [place] [address] Performed By: #### 5 7021-8 ####[facility] LABCLIA [id number] [place] [address] MCH (RBC) [Entitic mass] 28.2 pg Normal 26.0-34.0 [facility] Comment on above: Order Comment: Speci men Type: BLOOD SPECIMENOrdering Facility: [facility] Address: [address] [place] [address] Performed By: #### 5 7021-8 ####[facility] LABCLIA [id number] [place] [address] MCHC (RBC) [Mass/Vol] 33.4 g/dL Normal 30.5-36.0 [facility] Comment on above: Order Comment: Speci men Type: BLOOD SPECIMENOrdering Facility: [facility] Address: [address] [place] [address] Performed By: #### 5 7021-8 ####[facility] LABCLIA [id number] [place] [address] MCV (RBC) [Entitic vol] 84.3 fL Normal 80.0-100.0 [facility] Comment on above: Order Comment: Speci men Type: BLOOD SPECIMENOrdering Facility: [facility] Address: [address] [place] [address] Performed By: #### 5 7021-8 ####[facility] LABCLIA [id number] [place] [address] Monocytes (Bld) [#/Vol] 0.58 10*3/uL Normal <0.87 [facility] Comment on above: Order Comment: Speci men Type: BLOOD SPECIMENOrdering Facility: [facility] Address: [address] [place] [address] Performed By: #### 5 7021-8 ####[facility] LABCLIA [id number] [place] [address] Monocytes/100 WBC (Bld) 6.2 % Normal [facility] Comment on above: Order Comment: Speci men Type: BLOOD SPECIMENOrdering Facility: [facility] Address: [address] [place] [address] Performed By: #### 5 7021-8 ####[facility] LABCLIA [id number] [place] [address] Neutrophils (Bld) [#/Vol] 8.05 10*3/uL High 1.45-7.50 [facility] Comment on above: Order Comment: Speci men Type: BLOOD SPECIMENOrdering Facility: [facility] Address: [address] [place] [address] Performed By: #### 5 7021-8 ####[facility] LABCLIA [id number] [place] [address] Neutrophils/100 WBC (Bld) 86.2 % Normal [facility] Comment on above: Order Comment: Speci men Type: BLOOD SPECIMENOrdering Facility: [facility] Address: [address] [place] [address] Performed By: #### 5 7021-8 ####[facility] LABCLIA [id number] [place] [address] Nucleated RBC (Bld) [#/Vol] 10*3/uL Normal <0.01 [facility] Comment on above: Order Comment: Speci men Type: BLOOD SPECIMENOrdering Facility: [facility] Address: [address] [place] [address] Performed By: #### 5 7021-8 ####[facility] LABCLIA [id number] [place] [address] Nucleated RBC/100 WBC (Bld) [Ratio] 0.0 /100 WBC Normal [facility] Comment on above: Order Comment: Speci men Type: BLOOD SPECIMENOrdering Facility: [facility] Address: [address] [place] [address] Performed By: #### 5 7021-8 ####[facility] LABCLIA [id number] [place] [address] Platelet mean volume (Bld) [Entitic vol] 9.4 fL Normal 9.0-12.7 [facility] Comment on above: Order Comment: Speci men Type: BLOOD SPECIMENOrdering Facility: [facility] Address: [address] [place] [address] Performed By: #### 5 7021-8 ####[facility] LABCLIA [id number] [place] [address] Platelets (Bld) [#/Vol] 156 10*3/uL Normal 150-400 [facility] Comment on above: Order Comment: Speci men Type: BLOOD SPECIMENOrdering Facility: [facility] Address: [address] [place] [address] Performed By: #### 5 7021-8 ####[facility] LABCLIA [id number] [place] [address] RBC (Bld) [#/Vol] 4.51 10*6/uL Normal 4.20-6.00 [facility] Comment on above: Order Comment: Speci men Type: BLOOD SPECIMENOrdering Facility: [facility] Address: [address] [place] [address] Performed By: #### 5 7021-8 ####[facility] LABCLIA [id number] [place] [address] WBC (Bld) [#/Vol] 9.35 10*3/uL Normal 3.70-11.00 [facility] Comment on above: Order Comment: Speci men Type: BLOOD SPECIMENOrdering Facility: [facility] Address: [address] [place] [address] Performed By: #### 5 7021-8 ####[facility] LABCLIA [id number] [place] [address] CNOVSPon 09-19-2023 CNOVSP Normal [facility] metabolic 2000 panelon 09-19-2023 Albumin [Mass/Vol] 3.6 g/dL Low 3.9-4.9 [facility] Comment on above: Order Comment: Speci men Type: BLOOD SPECIMENOrdering Facility: [facility] Address: [address] [place] [address] Performed By: #### 2 4323-8 ####[facility] LABCLIA [id number] [place] [address] ALP [Catalytic activity/Vol] 63 U/L Normal 38-113 [facility] Comment on above: Order Comment: Speci men Type: BLOOD SPECIMENOrdering Facility: [facility] Address: [address] [place] [address] Performed By: #### 2 4323-8 ####[facility] LABCLIA [id number] [place] [address] ALT [Catalytic activity/Vol] 18 U/L Normal 10-54 [facility] Comment on above: Order Comment: Speci men Type: BLOOD SPECIMENOrdering Facility: [facility] Address: [address] [place] [address] Performed By: #### 2 4323-8 ####[facility] LABCLIA [id number] [place] [address] Anion gap [Moles/Vol] 8 mmol/L Low 9-18 [facility] Comment on above: Order Comment: Speci men Type: BLOOD SPECIMENOrdering Facility: [facility] Address: [address] [place] [address] Performed By: #### 2 4323-8 ####[facility] LABCLIA [id number] [place] [address] AST [Catalytic activity/Vol] 19 U/L Normal 14-40 [facility] Comment on above: Order Comment: Speci men Type: BLOOD SPECIMENOrdering Facility: [facility] Address: [address] [place] [address] Performed By: #### 2 4323-8 ####[facility] LABCLIA [id number] [place] [address] Bilirubin [Mass/Vol] 0.7 mg/dL Normal 0.2-1.3 [facility] Comment on above: Order Comment: Speci men Type: BLOOD SPECIMENOrdering Facility: [facility] Address: [address] [place] [address] Performed By: #### 2 4323-8 ####[facility] LABCLIA [id number] [place] [address] Calcium [Mass/Vol] 8.7 mg/dL Normal 8.5-10.2 [facility] Comment on above: Order Comment: Speci men Type: BLOOD SPECIMENOrdering Facility: [facility] Address: [address] [place] [address] Performed By: #### 2 4323-8 ####[facility] LABCLIA [id number] [place] [address] Chloride [Moles/Vol] 105 mmol/L Normal 97-105 [facility] Comment on above: Order Comment: Speci men Type: BLOOD SPECIMENOrdering Facility: [facility] Address: [address] [place] [address] Performed By: #### 2 4323-8 ####[facility] LABCLIA [id number] [place] [address] CO2 [Moles/Vol] 28 mmol/L Normal 22-30 [facility] Comment on above: Order Comment: Speci men Type: BLOOD SPECIMENOrdering Facility: [facility] Address: [address] [place] [place] [id number] Performed By: #### 2 4323-8 ####[facility] LABCLIA [id number] [place] [address] Creatinine [Mass/Vol] 1.84 mg/dL High 0.73-1.22 [facility] Comment on above: Order Comment: Speci men Type: BLOOD SPECIMENOrdering Facility: [facility] Address: [address] [place] [address] Performed By: #### 2 4323-8 ####[facility] LABCLIA [id number] [place] [address] Creatinine and Glomerular filtration rate.predicted panel (S/P/Bld) 36 mL/min/1.73m??? Low >=60 [facility] Comment on above: Order Comment: Speci men Type: BLOOD SPECIMENOrdering Facility: [facility] Address: [address] [place] [address] Result Comment: Viviana mated Glomerular Filtration Rate [...] actual GFR. Performed By: #### 2 4323-8 ####[facility] LABCLIA [id number] [place] [address] Glucose [Mass/Vol] 106 mg/dL High 74-99 [facility] Comment on above: Order Comment: Speci men Type: BLOOD SPECIMENOrdering Facility: [facility] Address: [address] [place] [address] Result Comment: The [place] Diabetes [employer] (ADA) provides guidance for cutoff [...] Standards of Medical Care in Diabetes 2016, [place] [employer]. Diabetes Care. 2016.39(Suppl 1). Performed By: #### 2 4323-8 ####[facility] LABCLIA [id number] [place] [address] Potassium [Moles/Vol] 3.7 mmol/L Normal 3.7-5.1 [facility] Comment on above: Order Comment: Speci men Type: BLOOD SPECIMENOrdering Facility: [facility] Address: [address] [place] [address] Performed By: #### 2 4323-8 ####[facility] LABCLIA [id number] [place] [address] Protein [Mass/Vol] 5.4 g/dL Low 6.3-8.0 [facility] Comment on above: Order Comment: Speci men Type: BLOOD SPECIMENOrdering Facility: [facility] Address: [address] [place] [address] Performed By: #### 2 4323-8 ####[facility] LABCLIA [id number] [place] [address] Sodium [Moles/Vol] 141 mmol/L Normal 136-144 [facility] Comment on above: Order Comment: Speci men Type: BLOOD SPECIMENOrdering Facility: [facility] Address: [address] [place] [address] Performed By: #### 2 4323-8 ####[facility] LABCLIA [id number] [place] [address] Urea nitrogen [Mass/Vol] 38 mg/dL High 9-24 [facility] Comment on above: Order Comment: Speci men Type: BLOOD SPECIMENOrdering Facility: [facility] Address: [address] [place] [address] Performed By: #### 2 4323-8 ####[facility] LABCLIA [id number] [place] [address] Beverly ValdesEnocHannykimberlygerhard 09-19-20 Cortisol [Mass/Vol] 9.8 ug/dL Normal 4.8-19.5 [facility] Comment on above: Order Comment: Speci men Type: BLOOD SPECIMENOrdering Facility: [facility] Address: [address] [place] [address] Result Comment: Prov ided reference range is from 6-10 AM sample collection time.Cortisol Reference Range: 6-10 AM = 4.8-19.5 ug/dL, 4-8 PM = 2.5-11.9 ug/dL Performed By: #### 2 143-6, 3016-3 ####[facility] LABCLIA [id number] [place] [address] [place] HbA1c (Bld)on 09-19-2023 Average glucose Estimated from glycated hemoglobin (Bld) [Mass/Vol] 108 mg/dL Normal [facility] Comment on above: Order Comment: Vero barton Type: BLOOD SPECIMENOrdering Facility: [facility] Address: [address] [place] [address] Result Comment: eAG: (Estimated average glucose) is a calculated value from HgbA1c and is primary care sales representative of the average blood glucose level in the last 2-3 month period. Performed By: #### 5 5454-3 ####[facility] LABCLIA [id number] [place] [address] [place] HbA1c (Bld) [Mass fraction] 5.4 % Normal 4.3-5.6 [facility] Comment on above: Order Comment: Vero barton Type: BLOOD SPECIMENOrdering Facility: [facility] Address: [address] [place] [address] Result Comment: [place] Diabetes Association guidelines indicate that patients with HgbA1c in the range 5.7-6.4% are at increased risk for development of diabetes, and intervention by lifestyle modification may be beneficial. HgbA1c greater or equal to 6.5% is considered diagnostic of diabetes. Performed By: #### 5 5454-3 ####[facility] LABCLIA [id number] [place] [address] [place] TSH SerPl-aCncon 09-19-2023 TSH Qn 2.080 m[IU]/L Normal 0.270-4.200 [facility] Comment on above: Order Comment: Speci men Type: BLOOD SPECIMENOrdering Facility: [facility] Address: [address] [place] [address] Performed By: #### 2 143-6, 3016-3 ####[facility] LABCLIA [id number] [address] [place] CBC W Auto Differential pane l (Bld)on 08-29-2023 Basophils (Bld) [#/Vol] 0.06 10*3/uL Normal <0.11 [facility] Comment on above: Order Comment: Speci men Type: BLOOD SPECIMENOrdering Facility: [facility] Address: [address] [place] [address] Performed By: #### 5 7021-8 ####[facility] LABCLIA [id number] [place] [address] Basophils/100 WBC (Bld) 0.9 % Normal [facility] Comment on above: Order Comment: Speci men Type: BLOOD SPECIMENOrdering Facility: [facility] Address: [address] [place] [address] Performed By: #### 5 7021-8 ####[facility] LABCLIA [id number] [place] [address] Differential cell count method Nom (Bld) Auto Normal [facility] Comment on above: Order Comment: Speci men Type: BLOOD SPECIMENOrdering Facility: [facility] Address: [address] [place] [address] Performed By: #### 5 7021-8 ####[facility] LABCLIA [id number] [place] [address] Eosinophils (Bld) [#/Vol] 0.25 10*3/uL Normal <0.46 [facility] Comment on above: Order Comment: Speci men Type: BLOOD SPECIMENOrdering Facility: [facility] Address: [address] [place] [address] Performed By: #### 5 7021-8 ####[facility] LABCLIA [id number] [place] [address] Eosinophils/100 WBC (Bld) 3.7 % Normal [facility] Comment on above: Order Comment: Speci men Type: BLOOD SPECIMENOrdering Facility: [facility] Address: [address] [place] [address] Performed By: #### 5 7021-8 ####[facility] LABCLIA [id number] [place] [address] Erythrocyte distribution width (RBC) [Ratio] 13.8 % Normal 11.5-15.0 [facility] Comment on above: Order Comment: Speci men Type: BLOOD SPECIMENOrdering Facility: [facility] Address: [address] [place] [address] Performed By: #### 5 7021-8 ####[facility] LABCLIA [id number] [place] [address] Hematocrit (Bld) [Volume fraction] 40.9 % Normal 39.0-51.0 [facility] Comment on above: Order Comment: Speci men Type: BLOOD SPECIMENOrdering Facility: [facility] Address: [address] [place] [address] Performed By: #### 5 7021-8 ####[facility] LABIA [id number] [place] [address] Hemoglobin (Bld) [Mass/Vol] 13.6 g/dL Normal 13.0-17.0 [facility] Comment on above: Order Comment: Speci men Type: BLOOD SPECIMENOrdering Facility: [facility] Address: [address] [place] [address] Performed By: #### 5 7021-8 ####[facility] LABCLIA [id number] [place] [address] Immature granulocytes (Bld) [#/Vol] 10*3/uL Normal <0.10 [facility] Comment on above: Order Comment: Speci men Type: BLOOD SPECIMENOrdering Facility: [facility] Address: [address] [place] [address] Performed By: #### 5 7021-8 ####[facility] LABCLIA [id number] [place] [address] Immature granulocytes/100 WBC (Bld) 0.3 % Normal [facility] Comment on above: Order Comment: Speci men Type: BLOOD SPECIMENOrdering Facility: [facility] Address: [address] [place] [address] Performed By: #### 5 7021-8 ####[facility] LABCLIA [id number] [place] [address] Lymphocytes (Bld) [#/Vol] 0.73 10*3/uL Low 1.00-4.00 [facility] Comment on above: Order Comment: Speci men Type: BLOOD SPECIMENOrdering Facility: [facility] Address: [address] [place] [address] Performed By: #### 5 7021-8 ####[facility] LABCLIA [id number] [place] [address] Lymphocytes/100 WBC (Bld) 10.9 % Normal [facility] Comment on above: Order Comment: Speci men Type: BLOOD SPECIMENOrdering Facility: [facility] Address: [address] [place] [address] Performed By: #### 5 7021-8 ####[facility] LABCLIA [id number] [place] [address] MCH (RBC) [Entitic mass] 28.0 pg Normal 26.0-34.0 [facility] Comment on above: Order Comment: Speci men Type: BLOOD SPECIMENOrdering Facility: [facility] Address: [address] [place] [address] Performed By: #### 5 7021-8 ####[facility] LABCLIA [id number] [place] [address] MCHC (RBC) [Mass/Vol] 33.3 g/dL Normal 30.5-36.0 [facility] Comment on above: Order Comment: Speci men Type: BLOOD SPECIMENOrdering Facility: [facility] Address: [address] [place] [address] Performed By: #### 5 7021-8 ####[facility] LABIA [id number] [place] [address] MCV (RBC) [Entitic vol] 84.2 fL Normal 80.0-100.0 [facility] Comment on above: Order Comment: Speci men Type: BLOOD SPECIMENOrdering Facility: [facility] Address: [address] [place] [address] Performed By: #### 5 7021-8 ####[facility] LABIA [id number] [place] [address] Monocytes (Bld) [#/Vol] 0.36 10*3/uL Normal <0.87 [facility] Comment on above: Order Comment: Speci men Type: BLOOD SPECIMENOrdering Facility: [facility] Address: [address] [place] [address] Performed By: #### 5 7021-8 ####[facility] LABCLIA [id number] [place] [address] Monocytes/100 WBC (Bld) 5.4 % Normal [facility] Comment on above: Order Comment: Speci men Type: BLOOD SPECIMENOrdering Facility: [facility] Address: [address] [place] [address] Performed By: #### 5 7021-8 ####[facility] LABCLIA [id number] [place] [address] Neutrophils (Bld) [#/Vol] 5.28 10*3/uL Normal 1.45-7.50 [facility] Comment on above: Order Comment: Speci men Type: BLOOD SPECIMENOrdering Facility: [facility] Address: [address] [place] [address] Performed By: #### 5 7021-8 ####[facility] LABCLIA [id number] [place] [address] Neutrophils/100 WBC (Bld) 78.8 % Normal [facility] Comment on above: Order Comment: Speci men Type: BLOOD SPECIMENOrdering Facility: [facility] Address: [address] [place] [address] Performed By: #### 5 7021-8 ####[facility] LABCLIA [id number] [place] [address] Nucleated RBC (Bld) [#/Vol] 10*3/uL Normal <0.01 [facility] Comment on above: Order Comment: Speci men Type: BLOOD SPECIMENOrdering Facility: [facility] Address: [address] [place] [address] Performed By: #### 5 7021-8 ####[facility] LABCLIA [id number] [place] [address] Nucleated RBC/100 WBC (Bld) [Ratio] 0.0 /100 WBC Normal [facility] Comment on above: Order Comment: Speci men Type: BLOOD SPECIMENOrdering Facility: [facility] Address: [address] [place] [address] Performed By: #### 5 7021-8 ####[facility] LABCLIA [id number] [place] [address] Platelet mean volume (Bld) [Entitic vol] 9.1 fL Normal 9.0-12.7 [facility] Comment on above: Order Comment: Speci men Type: BLOOD SPECIMENOrdering Facility: [facility] Address: [address] [place] [id number] Performed By: #### 5 7021-8 ####[facility] LABCLIA [id number] [place] [address] Platelets (Bld) [#/Vol] 224 10*3/uL Normal 150-400 [facility] Comment on above: Order Comment: Speci men Type: BLOOD SPECIMENOrdering Facility: [facility] Address: [address] [place] [address] Performed By: #### 5 7021-8 ####[facility] LABCLIA [id number] [place] [address] RBC (Bld) [#/Vol] 4.86 10*6/uL Normal 4.20-6.00 [facility] Comment on above: Order Comment: Speci men Type: BLOOD SPECIMENOrdering Facility: [facility] Address: [address] [place] [address] Performed By: #### 5 7021-8 ####[facility] LABCLIA [id number] [place] [address] WBC (Bld) [#/Vol] 6.70 10*3/uL Normal 3.70-11.00 [facility] Comment on above: Order Comment: Speci men Type: BLOOD SPECIMENOrdering Facility: [facility] Address: [address] [place] [address] Performed By: #### 5 7021-8 ####[facility] LABCLIA [id number] [place] [address] CNOVSPon 08-29-2023 CNOVSP Normal [facility] Comprehensive metabolic 2000 panelon 08-29-2023 Albumin [Mass/Vol] 4.2 g/dL Normal 3.9-4.9 [facility] Comment on above: Order Comment: Speci men Type: BLOOD SPECIMENOrdering Facility: [facility] Address: [address] [place] [address] Performed By: #### 2 4323-8 ####[facility] LABCLIA [id number] [place] [address] ALP [Catalytic activity/Vol] 79 U/L Normal 38-113 [facility] Comment on above: Order Comment: Speci men Type: BLOOD SPECIMENOrdering Facility: [facility] Address: [address] [place] [address] Performed By: #### 2 4323-8 ####[facility] LABCLIA [id number] [place] [address] ALT [Catalytic activity/Vol] 17 U/L Normal 10-54 [facility] Comment on above: Order Comment: Speci men Type: BLOOD SPECIMENOrdering Facility: [facility] Address: [address] [place] [address] Performed By: #### 2 4323-8 ####[facility] LABCLIA [id number] [place] [address] Anion gap [Moles/Vol] 7 mmol/L Low 9-18 [facility] Comment on above: Order Comment: Speci men Type: BLOOD SPECIMENOrdering Facility: [facility] Address: [address] [place] [address] Performed By: #### 2 4323-8 ####[facility] LABCLIA [id number] [place] [address] AST [Catalytic activity/Vol] 28 U/L Normal 14-40 [facility] Comment on above: Order Comment: Speci men Type: BLOOD SPECIMENOrdering Facility: [facility] Address: [address] [place] [address] Performed By: #### 2 4323-8 ####[facility] LABCLIA [id number] [place] [address] Bilirubin [Mass/Vol] 0.8 mg/dL Normal 0.2-1.3 [facility] Comment on above: Order Comment: Speci men Type: BLOOD SPECIMENOrdering Facility: [facility] Address: [address] [place] [address] Performed By: #### 2 4323-8 ####[facility] LABCLIA [id number] [place] [address] Calcium [Mass/Vol] 9.6 mg/dL Normal 8.5-10.2 [facility] Comment on above: Order Comment: Speci men Type: BLOOD SPECIMENOrdering Facility: [facility] Address: [address] [place] [address] Performed By: #### 2 4323-8 ####[facility] LABCLIA [id number] [place] [address] Chloride [Moles/Vol] 102 mmol/L Normal 97-105 [facility] Comment on above: Order Comment: Speci men Type: BLOOD SPECIMENOrdering Facility: [facility] Address: [address] [place] [address] Performed By: #### 2 4323-8 ####[facility] LABCLIA [id number] [place] [address] CO2 [Moles/Vol] 28 mmol/L Normal 22-30 [facility] Comment on above: Order Comment: Speci men Type: BLOOD SPECIMENOrdering Facility: [facility] Address: [address] [place] [address] Performed By: #### 2 4323-8 ####[facility] LABCLIA [id number] [place] [address] Creatinine [Mass/Vol] 2.02 mg/dL High 0.73-1.22 [facility] Comment on above: Order Comment: Speci men Type: BLOOD SPECIMENOrdering Facility: [facility] Address: [address] [place] [address] Performed By: #### 2 4323-8 ####[facility] LABCLIA [id number] [place] [address] Creatinine and Glomerular filtration rate.predicted panel (S/P/Bld) 32 mL/min/1.73m??? Low >=60 [facility] Comment on above: Order Comment: Speci men Type: BLOOD SPECIMENOrdering Facility: [facility] Address: [address] [place] [address] Result Comment: Viviana mated Glomerular Filtration Rate [...] actual GFR. Performed By: #### 2 4323-8 ####[facility] LABCLIA [id number] [place] [address] Glucose [Mass/Vol] 116 mg/dL High 74-99 [facility] Comment on above: Order Comment: Vero barton Type: BLOOD SPECIMENOrdering Facility: [facility] Address: [address] [place] [address] Result Comment: The [place] Diabetes Association (ADA) provides guidance for cutoff [...] Standards of Medical Care in Diabetes 2016, [place] [employer]. Diabetes Care. 2016.39(Suppl 1). Performed By: #### 2 4323-8 ####[facility] LABCLIA [id number] [place] [address] Potassium [Moles/Vol] 4.1 mmol/L Normal 3.7-5.1 [facility] Comment on above: Order Comment: Vero barton Type: BLOOD SPECIMENOrdering Facility: [facility] Address: [address] [place] [address] Performed By: #### 2 4323-8 ####[facility] LABCLIA [id number] [place] [address] Protein [Mass/Vol] 6.1 g/dL Low 6.3-8.0 [facility] Comment on above: Order Comment: Speci men Type: BLOOD SPECIMENOrdering Facility: [facility] Address: [address] [place] [address] Performed By: #### 2 4323-8 ####[facility] LABCLIA [id number] [place] [address] Sodium [Moles/Vol] 137 mmol/L Normal 136-144 [facility] Comment on above: Order Comment: Speci men Type: BLOOD SPECIMENOrdering Facility: [facility] Address: [address] [place] [address] Performed By: #### 2 4323-8 ####[facility] LABCLIA [id number] [place] [address] Urea nitrogen [Mass/Vol] 23 mg/dL Normal 9-24 [facility] Comment on above: Order Comment: Speci men Type: BLOOD SPECIMENOrdering Facility: [facility] Address: [address] [place] [address] Performed By: #### 2 4323-8 ####[facility] LABCLIA [id number] [place] [address] Beverly Koehler 08-29-20 23 Cortisol [Mass/Vol] 7.9 ug/dL Normal 4.8-19.5 [facility] Comment on above: Order Comment: Speci men Type: BLOOD SPECIMENOrdering Facility: [facility] Address: [address] [place] [address] Result Comment: Prov ided reference range is from 6-10 AM sample collection time.Cortisol Reference Range: 6-10 AM = 4.8-19.5 ug/dL, 4-8 PM = 2.5-11.9 ug/dL Performed By: #### 2 143-6, 3016-3 ####[facility] LABCLIA [id number] [address] [place] HbA1c (Bld)on 08-29-2023 Average glucose Estimated from glycated hemoglobin (Bld) [Mass/Vol] 100 mg/dL Normal [facility] Comment on above: Order Comment: Vero barton Type: BLOOD SPECIMENOrdering Facility: [facility] Address: [address] [place] [address] Result Comment: eAG: (Estimated average glucose) is a calculated value from HgbA1c and is primary care sales representative of the average blood glucose level in the last 2-3 month period. Performed By: #### 5 5454-3 ####[facility] LABIA [id number] [address] [place] [facility] HbA1c (Bld) [Mass fraction] 5.1 % Normal 4.3-5.6 [facility] Comment on above: Order Comment: Vero barton Type: BLOOD SPECIMENOrdering Facility: [facility] Address: [address] [place] [address] Result Comment: [place] Diabetes Association guidelines indicate that patients with HgbA1c in the range 5.7-6.4% are at increased risk for development of diabetes, and intervention by lifestyle modification may be beneficial. HgbA1c greater or equal to 6.5% is considered diagnostic of diabetes. Performed By: #### 5 5454-3 ####[facility] LABIA [id number] [address] [place] TSH SerPl-aCncon 08-29-2023 TSH Qn 3.500 m[IU]/L Normal 0.270-4.200 [facility] Comment on above: Order Comment: Vero barton Type: BLOOD SPECIMENOrdering Facility: [facility] Address: [address] [place] [address] Performed By: #### 2 143-6, 3016-3 ####[facility] LABCLIA [id number] [place] [address] [place] CT ABD/PEL W IVCONon 11-10-[address] ABD/PEL W IVCON Normal [facility] CT CHEST W IVCONon 3 CT CHEST W IVCON Normal [facility] Office Visiton 08-20-2023 Follow-up visit [id number] Juan Jose Austin 1940 M Date Provider Department Center 08/20/2023 AnaEnocIJMBO BAUTISTA CARD [facility] Family History Problem Relation Age of Onset Heart failure Mother Family Status - Relation Status Age at Mother Level of Service:[address]68 [place] PHYS/QHP TELEPHONE EVALUATION 11-20 MIN Normal [facility] CBC W Auto Differential pane l (Bld)on 08-08-2023 Basophils (Bld) [#/Vol] 0.05 10*3/uL Normal <0.11 [facility] Comment on above: Order Comment: Speci men Type: BLOOD SPECIMENOrdering Facility: [facility] Address: [address] [place] [address] Performed By: #### 5 7021-8 ####[facility] LABCLIA [id number] [place] [address] Basophils/100 WBC (Bld) 0.8 % Normal [facility] Comment on above: Order Comment: Speci men Type: BLOOD SPECIMENOrdering Facility: [facility] Address: [address] [place] [address] Performed By: #### 5 7021-8 ####[facility] LABCLIA [id number] [place] [address] Differential cell count method Nom (Bld) Auto Normal [facility] Comment on above: Order Comment: Speci men Type: BLOOD SPECIMENOrdering Facility: [facility] Address: [address] [place] [address] Performed By: #### 5 7021-8 ####[facility] LABCLIA [id number] [place] [address] Eosinophils (Bld) [#/Vol] 0.23 10*3/uL Normal <0.46 [facility] Comment on above: Order Comment: Speci men Type: BLOOD SPECIMENOrdering Facility: [facility] Address: [address] [place] [address] Performed By: #### 5 7021-8 ####[facility] LABCLIA [id number] [place] [address] Eosinophils/100 WBC (Bld) 3.6 % Normal [facility] Comment on above: Order Comment: Speci men Type: BLOOD SPECIMENOrdering Facility: [facility] Address: [address] [place] [address] Performed By: #### 5 7021-8 ####[facility] LABCLIA [id number] [place] [address] Erythrocyte distribution width (RBC) [Ratio] 14.0 % Normal 11.5-15.0 [facility] Comment on above: Order Comment: Speci men Type: BLOOD SPECIMENOrdering Facility: [facility] Address: [address] [place] [address] Performed By: #### 5 7021-8 ####[facility] LABCLIA [id number] [place] [address] Hematocrit (Bld) [Volume fraction] 39.4 % Normal 39.0-51.0 [facility] Comment on above: Order Comment: Speci men Type: BLOOD SPECIMENOrdering Facility: [facility] Address: [address] [place] [address] Performed By: #### 5 7021-8 ####[facility] LABCLIA [id number] [place] [address] Hemoglobin (Bld) [Mass/Vol] 13.4 g/dL Normal 13.0-17.0 [facility] Comment on above: Order Comment: Speci men Type: BLOOD SPECIMENOrdering Facility: [facility] Address: [address] [place] [address] Performed By: #### 5 7021-8 ####[facility] LABCLIA [id number] [place] [address] Immature granulocytes (Bld) [#/Vol] 10*3/uL Normal <0.10 [facility] Comment on above: Order Comment: Speci men Type: BLOOD SPECIMENOrdering Facility: [facility] Address: [address] [place] [address] Performed By: #### 5 7021-8 ####[facility] LABCLIA [id number] [place] [address] Immature granulocytes/100 WBC (Bld) 0.3 % Normal [facility] Comment on above: Order Comment: Speci men Type: BLOOD SPECIMENOrdering Facility: [facility] Address: [address] [place] [address] Performed By: #### 5 7021-8 ####[facility] LABCLIA [id number] [place] [address] Lymphocytes (Bld) [#/Vol] 0.73 10*3/uL Low 1.00-4.00 [facility] Comment on above: Order Comment: Speci men Type: BLOOD SPECIMENOrdering Facility: [facility] Address: [address] [place] [address] Performed By: #### 5 7021-8 ####[facility] LABIA [id number] [place] [address] Lymphocytes/100 WBC (Bld) 11.5 % Normal [facility] Comment on above: Order Comment: Speci men Type: BLOOD SPECIMENOrdering Facility: [facility] Address: [address] [place] [address] Performed By: #### 5 7021-8 ####[facility] LABCLIA [id number] [place] [address] MCH (RBC) [Entitic mass] 28.5 pg Normal 26.0-34.0 [facility] Comment on above: Order Comment: Speci men Type: BLOOD SPECIMENOrdering Facility: [facility] Address: [address] [place] [address] Performed By: #### 5 7021-8 ####[facility] LABCLIA [id number] [place] [address] MCHC (RBC) [Mass/Vol] 34.0 g/dL Normal 30.5-36.0 [facility] Comment on above: Order Comment: Speci men Type: BLOOD SPECIMENOrdering Facility: [facility] Address: [address] [place] [address] Performed By: #### 5 7021-8 ####[facility] LABCLIA [id number] [place] [address] MCV (RBC) [Entitic vol] 83.7 fL Normal 80.0-100.0 [facility] Comment on above: Order Comment: Speci men Type: BLOOD SPECIMENOrdering Facility: [facility] Address: [address] [place] [address] Performed By: #### 5 7021-8 ####[facility] LABCLIA [id number] [place] [address] Monocytes (Bld) [#/Vol] 0.63 10*3/uL Normal <0.87 [facility] Comment on above: Order Comment: Speci men Type: BLOOD SPECIMENOrdering Facility: [facility] Address: [address] [place] [address] Performed By: #### 5 7021-8 ####[facility] LABCLIA [id number] [place] [address] Monocytes/100 WBC (Bld) 9.9 % Normal [facility] Comment on above: Order Comment: Speci men Type: BLOOD SPECIMENOrdering Facility: [facility] Address: [address] [place] [address] Performed By: #### 5 7021-8 ####[facility] LABIA [id number] [place] [address] Neutrophils (Bld) [#/Vol] 4.68 10*3/uL Normal 1.45-7.50 [facility] Comment on above: Order Comment: Speci men Type: BLOOD SPECIMENOrdering Facility: [facility] Address: [address] [place] [address] Performed By: #### 5 7021-8 ####[facility] LABCLIA [id number] [place] [address] Neutrophils/100 WBC (Bld) 73.9 % Normal [facility] Comment on above: Order Comment: Speci men Type: BLOOD SPECIMENOrdering Facility: [facility] Address: [address] [place] [address] Performed By: #### 5 7021-8 ####[facility] LABCLIA [id number] [place] [address] Nucleated RBC (Bld) [#/Vol] 10*3/uL Normal <0.01 [facility] Comment on above: Order Comment: Speci men Type: BLOOD SPECIMENOrdering Facility: [facility] Address: [address] [place] [address] Performed By: #### 5 7021-8 ####[facility] LABCLIA [id number] [place] [address] Nucleated RBC/100 WBC (Bld) [Ratio] 0.0 /100 WBC Normal [facility] Comment on above: Order Comment: Speci men Type: BLOOD SPECIMENOrdering Facility: [facility] Address: [address] [place] [address] Performed By: #### 5 7021-8 ####[facility] LABCLIA [id number] [place] [address] Platelet mean volume (Bld) [Entitic vol] 9.3 fL Normal 9.0-12.7 [facility] Comment on above: Order Comment: Speci men Type: BLOOD SPECIMENOrdering Facility: [facility] Address: [address] [place] [address] Performed By: #### 5 7021-8 ####[facility] LABCLIA [id number] [place] [address] Platelets (Bld) [#/Vol] 200 10*3/uL Normal 150-400 [facility] Comment on above: Order Comment: Speci men Type: BLOOD SPECIMENOrdering Facility: [facility] Address: [address] [place] [address] Performed By: #### 5 7021-8 ####[facility] LABCLIA [id number] [place] [address] RBC (Bld) [#/Vol] 4.71 10*6/uL Normal 4.20-6.00 [facility] Comment on above: Order Comment: Speci men Type: BLOOD SPECIMENOrdering Facility: [facility] Address: [address] [place] [address] Performed By: #### 5 7021-8 ####[facility] LABIA [id number] [place] [address] WBC (Bld) [#/Vol] 6.34 10*3/uL Normal 3.70-11.00 [facility] Comment on above: Order Comment: Speci men Type: BLOOD SPECIMENOrdering Facility: [facility] Address: [address] [place] [address] Performed By: #### 5 7021-8 ####[facility] LABIA [id number] [place] [address] CNPNon 08-08-2023 CNPN Normal [facility] Comprehensive metabolic 2000 panelon 08-08-2023 Albumin [Mass/Vol] 4.0 g/dL Normal 3.9-4.9 [facility] Comment on above: Order Comment: Speci men Type: BLOOD SPECIMENOrdering Facility: [facility] Address: [address] [place] [address] Performed By: #### 2 4323-8 ####[facility] LABIA [id number] [place] [address] ALP [Catalytic activity/Vol] 83 U/L Normal 38-113 [facility] Comment on above: Order Comment: Speci men Type: BLOOD SPECIMENOrdering Facility: [facility] Address: [address] [place] [address] Performed By: #### 2 4323-8 ####[facility] LABCLIA [id number] [place] [address] ALT [Catalytic activity/Vol] 14 U/L Normal 10-54 [facility] Comment on above: Order Comment: Speci men Type: BLOOD SPECIMENOrdering Facility: [facility] Address: [address] [place] [address] Performed By: #### 2 4323-8 ####[facility] LABCLIA [id number] [place] [address] Anion gap [Moles/Vol] 6 mmol/L Low 9-18 [facility] Comment on above: Order Comment: Speci men Type: BLOOD SPECIMENOrdering Facility: [facility] Address: [address] [place] [address] Performed By: #### 2 4323-8 ####[facility] LABCLIA [id number] [place] [address] AST [Catalytic activity/Vol] 21 U/L Normal 14-40 [facility] Comment on above: Order Comment: Speci men Type: BLOOD SPECIMENOrdering Facility: [facility] Address: [address] [place] [address] Performed By: #### 2 4323-8 ####[facility] LABCLIA [id number] [place] [address] Bilirubin [Mass/Vol] 0.7 mg/dL Normal 0.2-1.3 [facility] Comment on above: Order Comment: Speci men Type: BLOOD SPECIMENOrdering Facility: [facility] Address: [address] [place] [address] Performed By: #### 2 4323-8 ####[facility] LABCLIA [id number] [place] [address] Calcium [Mass/Vol] 8.7 mg/dL Normal 8.5-10.2 [facility] Comment on above: Order Comment: Speci men Type: BLOOD SPECIMENOrdering Facility: [facility] Address: [address] [place] [address] Performed By: #### 2 4323-8 ####[facility] LABCLIA [id number] [place] [address] Chloride [Moles/Vol] 106 mmol/L High 97-105 [facility] Comment on above: Order Comment: Speci men Type: BLOOD SPECIMENOrdering Facility: [facility] Address: [address] [place] [address] Performed By: #### 2 4323-8 ####[facility] LABCLIA [id number] [place] [address] CO2 [Moles/Vol] 25 mmol/L Normal 22-30 [facility] Comment on above: Order Comment: Speci men Type: BLOOD SPECIMENOrdering Facility: [facility] Address: [address] [place] [address] Performed By: #### 2 4323-8 ####[facility] LABCLIA [id number] [place] [address] Creatinine [Mass/Vol] 1.97 mg/dL High 0.73-1.22 [facility] Comment on above: Order Comment: Speci men Type: BLOOD SPECIMENOrdering Facility: [facility] Address: [address] [place] [address] Performed By: #### 2 4323-8 ####[facility] LABCLIA [id number] [place] [address] Creatinine and Glomerular filtration rate.predicted panel (S/P/Bld) 33 mL/min/1.73m??? Low >=60 [facility] Comment on above: Order Comment: Speci men Type: BLOOD SPECIMENOrdering Facility: [facility] Address: [address] [place] [address] Result Comment: Viviana mated Glomerular Filtration Rate [...] actual GFR. Performed By: #### 2 4323-8 ####[facility] LABCLIA [id number] [place] [address] Glucose [Mass/Vol] 105 mg/dL High 74-99 [facility] Comment on above: Order Comment: Speci men Type: BLOOD SPECIMENOrdering Facility: [facility] Address: [address] [place] [address] Result Comment: The [place] Diabetes Association (ADA) provides guidance for cutoff [...] Standards of Medical Care in Diabetes 2016, [place] [employer]. Diabetes Care. 2016.39(Suppl 1). Performed By: #### 2 4323-8 ####[facility] LABCLIA [id number] [place] [address] Potassium [Moles/Vol] 4.1 mmol/L Normal 3.7-5.1 [facility] Comment on above: Order Comment: Speci men Type: BLOOD SPECIMENOrdering Facility: [facility] Address: [address] [place] [address] Performed By: #### 2 4323-8 ####[facility] LABCLIA [id number] [place] [address] Protein [Mass/Vol] 6.0 g/dL Low 6.3-8.0 [facility] Comment on above: Order Comment: Speci men Type: BLOOD SPECIMENOrdering Facility: [facility] Address: [address] [place] [address] Performed By: #### 2 4323-8 ####[facility] LABCLIA [id number] [place] [address] Sodium [Moles/Vol] 137 mmol/L Normal 136-144 [facility] Comment on above: Order Comment: Speci men Type: BLOOD SPECIMENOrdering Facility: [facility] Address: [address] [place] [address] Performed By: #### 2 4323-8 ####[facility] LABCLIA [id number] [place] [address] Urea nitrogen [Mass/Vol] 23 mg/dL Normal 9-24 [facility] Comment on above: Order Comment: Speci men Type: BLOOD SPECIMENOrdering Facility: [facility] Address: [address] [place] [address] Performed By: #### 2 4323-8 ####[facility] LABCLIA [id number] [place] [address] Joceshaye Keisha-Celena 08-08-20 23 Cortisol [Mass/Vol] 11.0 ug/dL Normal 4.8-19.5 [facility] Health Comment on above: Order Comment: Speci men Type: BLOOD SPECIMENOrdering Facility: [facility] Address: [address] [place] [address] Result Comment: Prov ided reference range is from 6-10 AM sample collection time.Cortisol Reference Range: 6-10 AM = 4.8-19.5 ug/dL, 4-8 PM = 2.5-11.9 ug/dL Performed By: #### 2 143-6, 3016-3 ####[facility] LABCLIA [id number] [place] [id number] [place] HbA1c (Bld)on 08-08-2023 Average glucose Estimated from glycated hemoglobin (Bld) [Mass/Vol] 97 mg/dL Normal [facility] Comment on above: Order Comment: Speci men Type: BLOOD SPECIMENOrdering Facility: [facility] Address: [address] [place] [address] Result Comment: eAG: (Estimated average glucose) is a calculated value from HgbA1c and is primary care sales representative of the average blood glucose level in the last 2-3 month period. Performed By: #### 5 5454-3 ####[facility] LABCLIA [id number] [place] [address] [place] HbA1c (Bld) [Mass fraction] 5.0 % Normal 4.3-5.6 [facility] Comment on above: Order Comment: Speci men Type: BLOOD SPECIMENOrdering Facility: [facility] Address: [address] [place] [address] Result Comment: [place] Diabetes Association guidelines indicate that patients with HgbA1c in the range 5.7-6.4% are at increased risk for development of diabetes, and intervention by lifestyle modification may be beneficial. HgbA1c greater or equal to 6.5% is considered diagnostic of diabetes. Performed By: #### 5 5454-3 ####[facility] LABCLIA [id number] [place] [address] [place] TSH SerPl-aCncon 08-08-2023 TSH Qn 1.510 m[IU]/L Normal 0.270-4.200 [facility] Comment on above: Order Comment: Speci men Type: BLOOD SPECIMENOrdering Facility: [facility] Address: [address] [place] [address] Performed By: #### 2 143-6, 3016-3 ####[facility] LABIA [id number] [place] [address] [place] CBC W Auto Differential pane l (Bld)on 07-18-2023 Basophils (Bld) [#/Vol] 0.07 10*3/uL Normal <0.11 [facility] Comment on above: Order Comment: Speci men Type: BLOOD SPECIMENOrdering Facility: [facility] Address: [address] [place] [address] Performed By: #### 5 7021-8 ####[facility] LABCLIA [id number] [place] [address] Basophils/100 WBC (Bld) 1.0 % Normal [facility] Comment on above: Order Comment: Speci men Type: BLOOD SPECIMENOrdering Facility: [facility] Address: [address] [place] [address] Performed By: #### 5 7021-8 ####[facility] LABCLIA [id number] [place] [address] Differential cell count method Nom (Bld) Auto Normal [facility] Comment on above: Order Comment: Speci men Type: BLOOD SPECIMENOrdering Facility: [facility] Address: [address] [place] [address] Performed By: #### 5 7021-8 ####[facility] LABCLIA [id number] [place] [address] Eosinophils (Bld) [#/Vol] 0.23 10*3/uL Normal <0.46 [facility] Comment on above: Order Comment: Speci men Type: BLOOD SPECIMENOrdering Facility: [facility] Address: [address] [place] [address] Performed By: #### 5 7021-8 ####[facility] LABCLIA [id number] [place] [address] Eosinophils/100 WBC (Bld) 3.1 % Normal [facility] Comment on above: Order Comment: Speci men Type: BLOOD SPECIMENOrdering Facility: [facility] Address: [address] [place] [address] Performed By: #### 5 7021-8 ####[facility] LABCLIA [id number] [place] [address] Erythrocyte distribution width (RBC) [Ratio] 13.9 % Normal 11.5-15.0 [facility] Comment on above: Order Comment: Speci men Type: BLOOD SPECIMENOrdering Facility: [facility] Address: [address] [place] [address] Performed By: #### 5 7021-8 ####[facility] LABCLIA [id number] [place] [address] Hematocrit (Bld) [Volume fraction] 40.2 % Normal 39.0-51.0 [facility] Comment on above: Order Comment: Speci men Type: BLOOD SPECIMENOrdering Facility: [facility] Address: [address] [place] [address] Performed By: #### 5 7021-8 ####[facility] LABCLIA [id number] [place] [address] Hemoglobin (Bld) [Mass/Vol] 13.4 g/dL Normal 13.0-17.0 [facility] Comment on above: Order Comment: Speci men Type: BLOOD SPECIMENOrdering Facility: [facility] Address: [address] [place] [address] Performed By: #### 5 7021-8 ####[facility] LABCLIA [id number] [place] [address] Immature granulocytes (Bld) [#/Vol] 10*3/uL Normal <0.10 [facility] Comment on above: Order Comment: Speci men Type: BLOOD SPECIMENOrdering Facility: [facility] Address: [address] [place] [address] Performed By: #### 5 7021-8 ####[facility] LABCLIA [id number] [place] [address] Immature granulocytes/100 WBC (Bld) 0.3 % Normal [facility] Comment on above: Order Comment: Speci men Type: BLOOD SPECIMENOrdering Facility: [facility] Address: [address] [place] [address] Performed By: #### 5 7021-8 ####[facility] LABCLIA [id number] [place] [address] Lymphocytes (Bld) [#/Vol] 0.77 10*3/uL Low 1.00-4.00 [facility] Comment on above: Order Comment: Speci men Type: BLOOD SPECIMENOrdering Facility: [facility] Address: [address] [place] [address] Performed By: #### 5 7021-8 ####[facility] LABCLIA [id number] [place] [address] Lymphocytes/100 WBC (Bld) 10.5 % Normal [facility] Comment on above: Order Comment: Speci men Type: BLOOD SPECIMENOrdering Facility: [facility] Address: [address] [place] [address] Performed By: #### 5 7021-8 ####[facility] LABCLIA [id number] [place] [address] MCH (RBC) [Entitic mass] 28.2 pg Normal 26.0-34.0 [facility] Comment on above: Order Comment: Speci men Type: BLOOD SPECIMENOrdering Facility: [facility] Address: [address] [place] [address] Performed By: #### 5 7021-8 ####[facility] LABCLIA [id number] [place] [address] MCHC (RBC) [Mass/Vol] 33.3 g/dL Normal 30.5-36.0 [facility] Comment on above: Order Comment: Speci men Type: BLOOD SPECIMENOrdering Facility: [facility] Address: [address] [place] [address] Performed By: #### 5 7021-8 ####[facility] LABCLIA [id number] [place] [address] MCV (RBC) [Entitic vol] 84.5 fL Normal 80.0-100.0 [facility] Comment on above: Order Comment: Speci men Type: BLOOD SPECIMENOrdering Facility: [facility] Address: [address] [place] [address] Performed By: #### 5 7021-8 ####[facility] LABCLIA [id number] [place] [address] Monocytes (Bld) [#/Vol] 0.47 10*3/uL Normal <0.87 [facility] Comment on above: Order Comment: Speci men Type: BLOOD SPECIMENOrdering Facility: [facility] Address: [address] [place] [address] Performed By: #### 5 7021-8 ####[facility] LABCLIA [id number] [place] [address] Monocytes/100 WBC (Bld) 6.4 % Normal [facility] Comment on above: Order Comment: Speci men Type: BLOOD SPECIMENOrdering Facility: [facility] Address: [address] [place] [address] Performed By: #### 5 7021-8 ####[facility] LABCLIA [id number] [place] [address] Neutrophils (Bld) [#/Vol] 5.80 10*3/uL Normal 1.45-7.50 [facility] Comment on above: Order Comment: Speci men Type: BLOOD SPECIMENOrdering Facility: [facility] Address: [address] [place] [address] Performed By: #### 5 7021-8 ####[facility] LABCLIA [id number] [place] [address] Neutrophils/100 WBC (Bld) 78.7 % Normal [facility] Comment on above: Order Comment: Speci men Type: BLOOD SPECIMENOrdering Facility: [facility] Address: [address] [place] [address] Performed By: #### 5 7021-8 ####[facility] LABCLIA [id number] [place] [address] Nucleated RBC (Bld) [#/Vol] 10*3/uL Normal <0.01 [facility] Comment on above: Order Comment: Speci men Type: BLOOD SPECIMENOrdering Facility: [facility] Address: [address] [place] [address] Performed By: #### 5 7021-8 ####[facility] LABCLIA [id number] [place] [address] Nucleated RBC/100 WBC (Bld) [Ratio] 0.0 /100 WBC Normal [facility] Comment on above: Order Comment: Speci men Type: BLOOD SPECIMENOrdering Facility: [facility] Address: [address] [place] [address] Performed By: #### 5 7021-8 ####[facility] LABIA [id number] [place] [address] Platelet mean volume (Bld) [Entitic vol] 9.1 fL Normal 9.0-12.7 [facility] Comment on above: Order Comment: Speci men Type: BLOOD SPECIMENOrdering Facility: [facility] Address: [address] [place] [address] Performed By: #### 5 7021-8 ####[facility] LABIA [id number] [place] [address] Platelets (Bld) [#/Vol] 179 10*3/uL Normal 150-400 [facility] Comment on above: Order Comment: Speci men Type: BLOOD SPECIMENOrdering Facility: [facility] Address: [address] [place] [address] Performed By: #### 5 7021-8 ####[facility] LABIA [id number] [place] [address] RBC (Bld) [#/Vol] 4.76 10*6/uL Normal 4.20-6.00 [facility] Comment on above: Order Comment: Speci men Type: BLOOD SPECIMENOrdering Facility: [facility] Address: [address] [place] [address] Performed By: #### 5 7021-8 ####[facility] LABCLIA [id number] [place] [address] WBC (Bld) [#/Vol] 7.36 10*3/uL Normal 3.70-11.00 [facility] Comment on above: Order Comment: Speci men Type: BLOOD SPECIMENOrdering Facility: [facility] Address: [address] [place] [address] Performed By: #### 5 7021-8 ####[facility] LABCLIA [id number] [place] [address] CNOVSPon 07-18-2023 CNOVSP Normal [facility] metabolic 2000 panelon 07-18-2023 Albumin [Mass/Vol] 4.3 g/dL Normal 3.9-4.9 [facility] Comment on above: Order Comment: Speci men Type: BLOOD SPECIMENOrdering Facility: [facility] Address: [address] [place] [address] Performed By: #### 2 4323-8 ####[facility] LABCLIA [id number] [place] [address] ALP [Catalytic activity/Vol] 79 U/L Normal 38-113 [facility] Comment on above: Order Comment: Speci men Type: BLOOD SPECIMENOrdering Facility: [facility] Address: [address] [place] [address] Performed By: #### 2 4323-8 ####[facility] LABCLIA [id number] [place] [address] ALT [Catalytic activity/Vol] 17 U/L Normal 10-54 [facility] Comment on above: Order Comment: Speci men Type: BLOOD SPECIMENOrdering Facility: [facility] Address: [address] [place] [address] Performed By: #### 2 4323-8 ####[facility] LABCLIA [id number] [place] [address] Anion gap [Moles/Vol] 6 mmol/L Low 9-18 [facility] Comment on above: Order Comment: Speci men Type: BLOOD SPECIMENOrdering Facility: [facility] Address: [address] [place] [address] Performed By: #### 2 4323-8 ####[facility] LABCLIA [id number] [place] [address] AST [Catalytic activity/Vol] 24 U/L Normal 14-40 [facility] Comment on above: Order Comment: Speci men Type: BLOOD SPECIMENOrdering Facility: [facility] Address: [address] [place] [address] Performed By: #### 2 4323-8 ####[facility] LABCLIA [id number] [place] [address] Bilirubin [Mass/Vol] 0.5 mg/dL Normal 0.2-1.3 [facility] Comment on above: Order Comment: Speci men Type: BLOOD SPECIMENOrdering Facility: [facility] Address: [address] [place] [address] Performed By: #### 2 4323-8 ####[facility] LABCLIA [id number] [place] [address] Calcium [Mass/Vol] 9.1 mg/dL Normal 8.5-10.2 [facility] Comment on above: Order Comment: Speci men Type: BLOOD SPECIMENOrdering Facility: [facility] Address: [address] [place] [address] Performed By: #### 2 4323-8 ####[facility] LABCLIA [id number] [place] [address] Chloride [Moles/Vol] 107 mmol/L High 97-105 [facility] Comment on above: Order Comment: Speci men Type: BLOOD SPECIMENOrdering Facility: [facility] Address: [address] [place] [address] Performed By: #### 2 4323-8 ####[facility] LABCLIA [id number] [place] [address] CO2 [Moles/Vol] 27 mmol/L Normal 22-30 [facility] Comment on above: Order Comment: Speci men Type: BLOOD SPECIMENOrdering Facility: [facility] Address: [address] [place] [address] Performed By: #### 2 4323-8 ####[facility] LABCLIA [id number] [place] [address] Creatinine [Mass/Vol] 2.03 mg/dL High 0.73-1.22 [facility] Comment on above: Order Comment: Speci men Type: BLOOD SPECIMENOrdering Facility: [facility] Address: [address] [place] [address] Performed By: #### 2 4323-8 ####[facility] LABCLIA [id number] [place] [address] Creatinine and Glomerular filtration rate.predicted panel (S/P/Bld) 32 mL/min/1.73m??? Low >=60 [facility] Comment on above: Order Comment: Speci men Type: BLOOD SPECIMENOrdering Facility: [facility] Address: [address] [place] [address] Result Comment: Viviana mated Glomerular Filtration Rate [...] actual GFR. Performed By: #### 2 4323-8 ####[facility] LABCLIA [id number] [place] [address] Glucose [Mass/Vol] 104 mg/dL High 74-99 [facility] Comment on above: Order Comment: Speci men Type: BLOOD SPECIMENOrdering Facility: [facility] Address: [address] [place] [address] Result Comment: The [place] Diabetes Association (ADA) provides guidance for cutoff [...] Standards of Medical Care in Diabetes 2016, [place] Diabetes Association. Diabetes Care. 2016.39(Suppl 1). Performed By: #### 2 4323-8 ####[facility] LABCLIA [id number] [place] [address] Potassium [Moles/Vol] 4.1 mmol/L Normal 3.7-5.1 [facility] Comment on above: Order Comment: Speci men Type: BLOOD SPECIMENOrdering Facility: [facility] Address: [address] [place] [address] Performed By: #### 2 4323-8 ####[facility] LABCLIA [id number] [place] [address] Protein [Mass/Vol] 6.1 g/dL Low 6.3-8.0 [facility] Comment on above: Order Comment: Speci men Type: BLOOD SPECIMENOrdering Facility: [facility] Address: [address] [place] [address] Performed By: #### 2 4323-8 ####[facility] LABCLIA [id number] [place] [address] Sodium [Moles/Vol] 140 mmol/L Normal 136-144 [facility] Comment on above: Order Comment: Speci men Type: BLOOD SPECIMENOrdering Facility: [facility] Address: [address] [place] [address] Performed By: #### 2 4323-8 ####[facility] LABCLIA [id number] [place] [address] Urea nitrogen [Mass/Vol] 34 mg/dL High 9-24 [facility] Comment on above: Order Comment: Speci men Type: BLOOD SPECIMENOrdering Facility: [facility] Address: [address] [place] [address] Performed By: #### 2 4323-8 ####[facility] LABCLIA [id number] [place] [address] Beverly Koehler 07-18-20 Cortisol [Mass/Vol] 10.2 ug/dL Normal 4.8-19.5 [facility] Comment on above: Order Comment: Speci men Type: BLOOD SPECIMENOrdering Facility: [facility] Address: [address] [place] [address] Result Comment: Prov ided reference range is from 6-10 AM sample collection time.Cortisol Reference Range: 6-10 AM = 4.8-19.5 ug/dL, 4-8 PM = 2.5-11.9 ug/dL Performed By: #### 2 143-6, 3016-3 ####[facility] LABCLIA [id number] [place] [address] [place] HbA1c (Bld)on 07-18-2023 Average glucose Estimated from glycated hemoglobin (Bld) [Mass/Vol] 103 mg/dL Normal [facility] Comment on above: Order Comment: Speci men Type: BLOOD SPECIMENOrdering Facility: [facility] Address: [address] [place] [address] Result Comment: eAG: (Estimated average glucose) is a calculated value from HgbA1c and is primary care sales representative of the average blood glucose level in the last 2-3 month period. Performed By: #### 5 5454-3 ####[facility] LABCLIA [id number] [place] [address] [place] HbA1c (Bld) [Mass fraction] 5.2 % Normal 4.3-5.6 [facility] Comment on above: Order Comment: Speci men Type: BLOOD SPECIMENOrdering Facility: [facility] Address: [address] [place] [address] Result Comment: [place] Diabetes Association guidelines indicate that patients with HgbA1c in the range 5.7-6.4% are at increased risk for development of diabetes, and intervention by lifestyle modification may be beneficial. HgbA1c greater or equal to 6.5% is considered diagnostic of diabetes. Performed By: #### 5 5454-3 ####[facility] LABCLIA [id number] [address] [place] TSH SerPl-aCncon 07-18-2023 TSH Qn 2.150 m[IU]/L Normal 0.270-4.200 [facility] Comment on above: Order Comment: Speci men Type: BLOOD SPECIMENOrdering Facility: [facility] Address: [address] [place] [address] Performed By: #### 2 143-6, 3016-3 ####[facility] LABCLIA [id number] [address] [place] CBC W Auto Differential pane l (Bld)on 06-27-2023 Basophils (Bld) [#/Vol] 0.05 10*3/uL Normal <0.11 [facility] Comment on above: Order Comment: Speci men Type: BLOOD SPECIMENOrdering Facility: [facility] Address: [address] [place] [address] Performed By: #### 5 7021-8 ####[facility] LABCLIA [id number] [place] [address] Basophils/100 WBC (Bld) 0.8 % Normal [facility] Comment on above: Order Comment: Speci men Type: BLOOD SPECIMENOrdering Facility: [facility] Address: [address] [place] [address] Performed By: #### 5 7021-8 ####[facility] LABCLIA [id number] [place] [address] Differential cell count method Nom (Bld) Auto Normal [facility] Comment on above: Order Comment: Speci men Type: BLOOD SPECIMENOrdering Facility: [facility] Address: [address] [place] [address] Performed By: #### 5 7021-8 ####[facility] LABCLIA [id number] [place] [address] Eosinophils (Bld) [#/Vol] 0.28 10*3/uL Normal <0.46 [facility] Comment on above: Order Comment: Speci men Type: BLOOD SPECIMENOrdering Facility: [facility] Address: [address] [place] [address] Performed By: #### 5 7021-8 ####[facility] LABCLIA [id number] [place] [address] Eosinophils/100 WBC (Bld) 4.4 % Normal [facility] Comment on above: Order Comment: Speci men Type: BLOOD SPECIMENOrdering Facility: [facility] Address: [address] [place] [address] Performed By: #### 5 7021-8 ####[facility] LABCLIA [id number] [place] [address] Erythrocyte distribution width (RBC) [Ratio] 13.7 % Normal 11.5-15.0 [facility] Comment on above: Order Comment: Speci men Type: BLOOD SPECIMENOrdering Facility: [facility] Address: [address] [place] [address] Performed By: #### 5 7021-8 ####[facility] LABCLIA [id number] [place] [address] Hematocrit (Bld) [Volume fraction] 39.7 % Normal 39.0-51.0 [facility] Comment on above: Order Comment: Speci men Type: BLOOD SPECIMENOrdering Facility: [facility] Address: [address] [place] [address] Performed By: #### 5 7021-8 ####[facility] LABCLIA [id number] [place] [address] Hemoglobin (Bld) [Mass/Vol] 13.3 g/dL Normal 13.0-17.0 [facility] Comment on above: Order Comment: Speci men Type: BLOOD SPECIMENOrdering Facility: [facility] Address: [address] [place] [address] Performed By: #### 5 7021-8 ####[facility] LABCLIA [id number] [place] [address] Immature granulocytes (Bld) [#/Vol] 10*3/uL Normal <0.10 [facility] Comment on above: Order Comment: Speci men Type: BLOOD SPECIMENOrdering Facility: [facility] Address: [address] [place] [address] Performed By: #### 5 7021-8 ####[facility] LABCLIA [id number] [place] [address] Immature granulocytes/100 WBC (Bld) 0.3 % Normal [facility] Comment on above: Order Comment: Speci men Type: BLOOD SPECIMENOrdering Facility: [facility] Address: [address] [place] [address] Performed By: #### 5 7021-8 ####[facility] LABCLIA [id number] [place] [address] Lymphocytes (Bld) [#/Vol] 0.89 10*3/uL Low 1.00-4.00 [facility] Comment on above: Order Comment: Speci men Type: BLOOD SPECIMENOrdering Facility: [facility] Address: [address] [place] [address] Performed By: #### 5 7021-8 ####[facility] LABCLIA [id number] [place] [address] Lymphocytes/100 WBC (Bld) 14.1 % Normal [facility] Comment on above: Order Comment: Speci men Type: BLOOD SPECIMENOrdering Facility: [facility] Address: [address] [place] [address] Performed By: #### 5 7021-8 ####[facility] LABCLIA [id number] [place] [address] MCH (RBC) [Entitic mass] 28.2 pg Normal 26.0-34.0 [facility] Comment on above: Order Comment: Speci men Type: BLOOD SPECIMENOrdering Facility: [facility] Address: [address] [place] [address] Performed By: #### 5 7021-8 ####[facility] LABCLIA [id number] [place] [address] MCHC (RBC) [Mass/Vol] 33.5 g/dL Normal 30.5-36.0 [facility] Comment on above: Order Comment: Speci men Type: BLOOD SPECIMENOrdering Facility: [facility] Address: [address] [place] [address] Performed By: #### 5 7021-8 ####[facility] LABIA [id number] [place] [address] MCV (RBC) [Entitic vol] 84.3 fL Normal 80.0-100.0 [facility] Comment on above: Order Comment: Speci men Type: BLOOD SPECIMENOrdering Facility: [facility] Address: [address] [place] [address] Performed By: #### 5 7021-8 ####[facility] LABCLIA [id number] [place] [address] Monocytes (Bld) [#/Vol] 0.48 10*3/uL Normal <0.87 [facility] Comment on above: Order Comment: Speci men Type: BLOOD SPECIMENOrdering Facility: [facility] Address: [address] [place] [address] Performed By: #### 5 7021-8 ####[facility] LABIA [id number] [place] [address] Monocytes/100 WBC (Bld) 7.6 % Normal [facility] Comment on above: Order Comment: Speci men Type: BLOOD SPECIMENOrdering Facility: [facility] Address: [address] [address] Performed By: #### 5 7021-8 ####[facility] LABCLIA [id number] [place] [address] Neutrophils (Bld) [#/Vol] 4.60 10*3/uL Normal 1.45-7.50 [facility] Comment on above: Order Comment: Speci men Type: BLOOD SPECIMENOrdering Facility: [facility] Address: [address] [place] [address] Performed By: #### 5 7021-8 ####[facility] LABCLIA [id number] [place] [address] Neutrophils/100 WBC (Bld) 72.8 % Normal [facility] Comment on above: Order Comment: Speci men Type: BLOOD SPECIMENOrdering Facility: [facility] Address: [address] [place] [address] Performed By: #### 5 7021-8 ####[facility] LABCLIA [id number] [place] [address] Nucleated RBC (Bld) [#/Vol] 10*3/uL Normal <0.01 [facility] Comment on above: Order Comment: Speci men Type: BLOOD SPECIMENOrdering Facility: [facility] Address: [address] [place] [address] Performed By: #### 5 7021-8 ####[facility] LABCLIA [id number] [place] [address] Nucleated RBC/100 WBC (Bld) [Ratio] 0.0 /100 WBC Normal [facility] Comment on above: Order Comment: Speci men Type: BLOOD SPECIMENOrdering Facility: [facility] Address: [address] [place] [address] Performed By: #### 5 7021-8 ####[facility] LABCLIA [id number] [place] [address] Platelet mean volume (Bld) [Entitic vol] 9.5 fL Normal 9.0-12.7 [facility] Comment on above: Order Comment: Speci men Type: BLOOD SPECIMENOrdering Facility: [facility] Address: [address] [place] [address] Performed By: #### 5 7021-8 ####[facility] LABCLIA [id number] [place] [address] Platelets (Bld) [#/Vol] 177 10*3/uL Normal 150-400 [facility] Comment on above: Order Comment: Speci men Type: BLOOD SPECIMENOrdering Facility: [facility] Address: [address] [place] [address] Performed By: #### 5 7021-8 ####[facility] LABCLIA [id number] [place] [address] RBC (Bld) [#/Vol] 4.71 10*6/uL Normal 4.20-6.00 [facility] Comment on above: Order Comment: Speci men Type: BLOOD SPECIMENOrdering Facility: [facility] Address: [address] [place] [address] Performed By: #### 5 7021-8 ####[facility] LABCLIA [id number] [place] [address] WBC (Bld) [#/Vol] 6.32 10*3/uL Normal 3.70-11.00 [facility] Comment on above: Order Comment: Speci men Type: BLOOD SPECIMENOrdering Facility: [facility] Address: [address] [place] [address] Performed By: #### 5 7021-8 ####[facility] LABIA [id number] [place] [address] CNOVSPon 06-27-2023 CNOVSP Normal [facility] metabolic 2000 panelon 06-27-2023 Albumin [Mass/Vol] 4.1 g/dL Normal 3.9-4.9 [facility] Comment on above: Order Comment: Speci men Type: BLOOD SPECIMENOrdering Facility: [facility] Address: [address] [address] Performed By: #### 2 4323-8 ####[facility] LABCLIA [id number] [place] [address] ALP [Catalytic activity/Vol] 83 U/L Normal 38-113 [facility] Comment on above: Order Comment: Speci men Type: BLOOD SPECIMENOrdering Facility: [facility] Address: [address] [address] Performed By: #### 2 4323-8 ####[facility] LABCLIA [id number] [place] [address] ALT [Catalytic activity/Vol] 21 U/L Normal 10-54 [facility] Comment on above: Order Comment: Speci men Type: BLOOD SPECIMENOrdering Facility: [facility] Address: [address] [address] Performed By: #### 2 4323-8 ####[facility] LABCLIA [id number] [place] [address] Anion gap [Moles/Vol] 10 mmol/L Normal 9-18 [facility] Comment on above: Order Comment: Speci men Type: BLOOD SPECIMENOrdering Facility: [facility] Address: [address] [address] Performed By: #### 2 4323-8 ####[facility] LABCLIA [id number] [place] [address] AST [Catalytic activity/Vol] 28 U/L Normal 14-40 [facility] Comment on above: Order Comment: Speci men Type: BLOOD SPECIMENOrdering Facility: [facility] Address: [address] [address] Performed By: #### 2 4323-8 ####[facility] LABCLIA [id number] [place] [address] Bilirubin [Mass/Vol] 0.4 mg/dL Normal 0.2-1.3 [facility] Comment on above: Order Comment: Speci men Type: BLOOD SPECIMENOrdering Facility: [facility] Address: [address] [address] Performed By: #### 2 4323-8 ####[facility] LABCLIA [id number] [place] [address] Calcium [Mass/Vol] 8.9 mg/dL Normal 8.5-10.2 [facility] Comment on above: Order Comment: Speci men Type: BLOOD SPECIMENOrdering Facility: [facility] Address: [address] [place] [address] Performed By: #### 2 4323-8 ####[facility] LABCLIA [id number] [place] [address] Chloride [Moles/Vol] 105 mmol/L Normal 97-105 [facility] Comment on above: Order Comment: Speci men Type: BLOOD SPECIMENOrdering Facility: [facility] Address: [address] [place] [address] Performed By: #### 2 4323-8 ####[facility] LABCLIA [id number] [place] [address] CO2 [Moles/Vol] 24 mmol/L Normal 22-30 [facility] Comment on above: Order Comment: Speci men Type: BLOOD SPECIMENOrdering Facility: [facility] Address: [address] [place] [address] Performed By: #### 2 4323-8 ####[facility] LABIA [id number] [place] [address] Creatinine [Mass/Vol] 1.89 mg/dL High 0.73-1.22 [facility] Comment on above: Order Comment: Speci men Type: BLOOD SPECIMENOrdering Facility: [facility] Address: [address] [address] Performed By: #### 2 4323-8 ####[facility] LABCLIA [id number] [place] [address] Creatinine and Glomerular filtration rate.predicted panel (S/P/Bld) 35 mL/min/1.73m??? Low >=60 [facility] Comment on above: Order Comment: Vero barton Type: BLOOD SPECIMENOrdering Facility: [facility] Address: [address] [place] [address] Result Comment: Viviana mated Glomerular Filtration Rate [...] actual GFR. Performed By: #### 2 4323-8 ####[facility] LABCLIA [id number] [place] [address] Glucose [Mass/Vol] 106 mg/dL High 74-99 [facility] Comment on above: Order Comment: Vero barton Type: BLOOD SPECIMENOrdering Facility: [facility] Address: [address] [place] [address] Result Comment: The [place] Diabetes Association (ADA) provides guidance for cutoff [...] Standards of Medical Care in Diabetes 2016, [place] [employer]. Diabetes Care. 2016.39(Suppl 1). Performed By: #### 2 4323-8 ####[facility] LABCLIA [id number] [place] [address] Potassium [Moles/Vol] 4.4 mmol/L Normal 3.7-5.1 [facility] Comment on above: Order Comment: Speci men Type: BLOOD SPECIMENOrdering Facility: [facility] Address: [address] [place] [address] Performed By: #### 2 4323-8 ####[facility] LABCLIA [id number] [place] [address] Protein [Mass/Vol] 6.0 g/dL Low 6.3-8.0 [facility] Comment on above: Order Comment: Speci men Type: BLOOD SPECIMENOrdering Facility: [facility] Address: [address] [place] [address] Performed By: #### 2 4323-8 ####[facility] LABIA [id number] [place] [address] Sodium [Moles/Vol] 139 mmol/L Normal 136-144 [facility] Comment on above: Order Comment: Speci men Type: BLOOD SPECIMENOrdering Facility: [facility] Address: [address] [place] [address] Performed By: #### 2 4323-8 ####[facility] LABCLIA [id number] [place] [address] Urea nitrogen [Mass/Vol] 31 mg/dL High 9-24 [facility] Comment on above: Order Comment: Speci men Type: BLOOD SPECIMENOrdering Facility: [facility] Address: [address] [place] [address] Performed By: #### 2 4323-8 ####[facility] LABIA [id number] [place] [address] Beverly Koehler 06-27-20 23 Cortisol [Mass/Vol] 9.7 ug/dL Normal 4.8-19.5 [facility] Comment on above: Order Comment: Speci men Type: BLOOD SPECIMENOrdering Facility: [facility] Address: [address] [place] [address] Result Comment: Prov ided reference range is from 6-10 AM sample collection time.Cortisol Reference Range: 6-10 AM = 4.8-19.5 ug/dL, 4-8 PM = 2.5-11.9 ug/dL Performed By: #### 2 143-6, 3016-3 ####[facility] LABCLIA [id number] [address] OF [facility] HbA1c (Bld)on 06-27-2023 Average glucose Estimated from glycated hemoglobin (Bld) [Mass/Vol] 105 mg/dL Normal [facility] Comment on above: Order Comment: Speci men Type: BLOOD SPECIMENOrdering Facility: [facility] Address: [address] [place] [address] Result Comment: eAG: (Estimated average glucose) is a calculated value from HgbA1c and is primary care sales representative of the average blood glucose level in the last 2-3 month period. Performed By: #### 5 5454-3 ####[facility] LABCLIA [id number] [address] [place] OF [facility] HbA1c (Bld) [Mass fraction] 5.3 % Normal 4.3-5.6 [facility] Comment on above: Order Comment: Speci men Type: BLOOD SPECIMENOrdering Facility: [facility] Address: [address] [place] [address] Result Comment: [place] Diabetes Association guidelines indicate that patients with HgbA1c in the range 5.7-6.4% are at increased risk for development of diabetes, and intervention by lifestyle modification may be beneficial. HgbA1c greater or equal to 6.5% is considered diagnostic of diabetes. Performed By: #### 5 5454-3 ####[facility] LABCLIA [id number] [address] [place] TSH SerPl-aCncon 06-27-2023 TSH Qn 1.920 m[IU]/L Normal 0.270-4.200 [facility] Comment on above: Order Comment: Speci men Type: BLOOD SPECIMENOrdering Facility: [facility] Address: [address] [address] Performed By: #### 2 143-6, 3016-3 ####[facility] LABCLIA [id number] [facility]USDES[facility] [place] [address] [place] CBC W Auto Differential pane l (Bld)on 06-06-2023 Basophils (Bld) [#/Vol] 0.05 10*3/uL Normal <0.11 [facility] Comment on above: Order Comment: Speci men Type: BLOOD SPECIMENOrdering Facility: [facility] Address: [address] [address] Performed By: #### 5 7021-8 ####[facility] LABCLIA [id number] [place] [address] Basophils/100 WBC (Bld) 0.8 % Normal [facility] Comment on above: Order Comment: Speci men Type: BLOOD SPECIMENOrdering Facility: [facility] Address: [address] [place] [address] Performed By: #### 5 7021-8 ####[facility] LABCLIA [id number] [place] [address] Differential cell count method Nom (Bld) Auto Normal [facility] Comment on above: Order Comment: Speci men Type: BLOOD SPECIMENOrdering Facility: [facility] Address: [address] [address] Performed By: #### 5 7021-8 ####[facility] LABCLIA [id number] [place] [address] Eosinophils (Bld) [#/Vol] 0.32 10*3/uL Normal <0.46 [facility] Comment on above: Order Comment: Speci men Type: BLOOD SPECIMENOrdering Facility: [facility] Address: [address] [address] Performed By: #### 5 7021-8 ####[facility] LABCLIA [id number] [place] [address] Eosinophils/100 WBC (Bld) 4.8 % Normal [facility] Comment on above: Order Comment: Speci men Type: BLOOD SPECIMENOrdering Facility: [facility] Address: [address] [place] [address] Performed By: #### 5 7021-8 ####[facility] LABCLIA [id number] [place] [address] Erythrocyte distribution width (RBC) [Ratio] 13.8 % Normal 11.5-15.0 [facility] Comment on above: Order Comment: Speci men Type: BLOOD SPECIMENOrdering Facility: [facility] Address: [address] [place] [address] Performed By: #### 5 7021-8 ####[facility] LABIA [id number] [place] [address] Hematocrit (Bld) [Volume fraction] 42.6 % Normal 39.0-51.0 [facility] Comment on above: Order Comment: Speci men Type: BLOOD SPECIMENOrdering Facility: [facility] Address: [address] [place] [address] Performed By: #### 5 7021-8 ####[facility] LABIA [id number] [place] [address] Hemoglobin (Bld) [Mass/Vol] 14.4 g/dL Normal 13.0-17.0 [facility] Comment on above: Order Comment: Speci men Type: BLOOD SPECIMENOrdering Facility: [facility] Address: [address] [place] [address] Performed By: #### 5 7021-8 ####[facility] LABCLIA [id number] [place] [address] Immature granulocytes (Bld) [#/Vol] 0.03 10*3/uL Normal <0.10 [facility] Comment on above: Order Comment: Speci men Type: BLOOD SPECIMENOrdering Facility: [facility] Address: [address] [place] [address] Performed By: #### 5 7021-8 ####[facility] LABCLIA [id number] [place] [address] Immature granulocytes/100 WBC (Bld) 0.5 % Normal [facility] Comment on above: Order Comment: Speci men Type: BLOOD SPECIMENOrdering Facility: [facility] Address: [address] [place] [address] Performed By: #### 5 7021-8 ####[facility] LABCLIA [id number] [place] [address] Lymphocytes (Bld) [#/Vol] 0.93 10*3/uL Low 1.00-4.00 [facility] Comment on above: Order Comment: Speci men Type: BLOOD SPECIMENOrdering Facility: [facility] Address: [address] [place] [address] Performed By: #### 5 7021-8 ####[facility] LABCLIA [id number] [place] [address] Lymphocytes/100 WBC (Bld) 14.1 % Normal [facility] Comment on above: Order Comment: Speci men Type: BLOOD SPECIMENOrdering Facility: [facility] Address: [address] [place] [address] Performed By: #### 5 7021-8 ####[facility] LABCLIA [id number] [place] [address] MCH (RBC) [Entitic mass] 28.7 pg Normal 26.0-34.0 [facility] Comment on above: Order Comment: Speci men Type: BLOOD SPECIMENOrdering Facility: [facility] Address: [address] [place] [address] Performed By: #### 5 7021-8 ####[facility] LABCLIA [id number] [place] [address] MCHC (RBC) [Mass/Vol] 33.8 g/dL Normal 30.5-36.0 [facility] Comment on above: Order Comment: Speci men Type: BLOOD SPECIMENOrdering Facility: [facility] Address: [address] [place] [address] Performed By: #### 5 7021-8 ####[facility] LABIA [id number] [place] [address] MCV (RBC) [Entitic vol] 84.9 fL Normal 80.0-100.0 [facility] Comment on above: Order Comment: Speci men Type: BLOOD SPECIMENOrdering Facility: [facility] Address: [address] [place] [address] Performed By: #### 5 7021-8 ####[facility] LABIA [id number] [place] [address] Monocytes (Bld) [#/Vol] 0.42 10*3/uL Normal <0.87 [facility] Comment on above: Order Comment: Speci men Type: BLOOD SPECIMENOrdering Facility: [facility] Address: [address] [place] [address] Performed By: #### 5 7021-8 ####[facility] LABIA [id number] [place] [address] Monocytes/100 WBC (Bld) 6.4 % Normal [facility] Comment on above: Order Comment: Speci men Type: BLOOD SPECIMENOrdering Facility: [facility] Address: [address] [place] [address] Performed By: #### 5 7021-8 ####[facility] LABIA [id number] [place] [address] Neutrophils (Bld) [#/Vol] 4.85 10*3/uL Normal 1.45-7.50 [facility] Comment on above: Order Comment: Speci men Type: BLOOD SPECIMENOrdering Facility: [facility] Address: [address] [place] [address] Performed By: #### 5 7021-8 ####[facility] LABCLIA [id number] [place] [address] Neutrophils/100 WBC (Bld) 73.4 % Normal [facility] Comment on above: Order Comment: Speci men Type: BLOOD SPECIMENOrdering Facility: [facility] Address: [address] [place] [address] Performed By: #### 5 7021-8 ####[facility] LABCLIA [id number] [place] [address] Nucleated RBC (Bld) [#/Vol] 10*3/uL Normal <0.01 [facility] Comment on above: Order Comment: Speci men Type: BLOOD SPECIMENOrdering Facility: [facility] Address: [address] [place] [address] Performed By: #### 5 7021-8 ####[facility] LABCLIA [id number] [place] [address] Nucleated RBC/100 WBC (Bld) [Ratio] 0.0 /100 WBC Normal [facility] Comment on above: Order Comment: Speci men Type: BLOOD SPECIMENOrdering Facility: [facility] Address: [address] [place] [address] Performed By: #### 5 7021-8 ####[facility] LABCLIA [id number] [place] [address] Platelet mean volume (Bld) [Entitic vol] 9.0 fL Normal 9.0-12.7 [facility] Comment on above: Order Comment: Speci men Type: BLOOD SPECIMENOrdering Facility: [facility] Address: [address] [place] [address] Performed By: #### 5 7021-8 ####[facility] LABCLIA [id number] [place] [address] Platelets (Bld) [#/Vol] 185 10*3/uL Normal 150-400 [facility] Comment on above: Order Comment: Speci men Type: BLOOD SPECIMENOrdering Facility: [facility] Address: [address] [place] [address] Performed By: #### 5 7021-8 ####[facility] LABIA [id number] [place] [address] RBC (Bld) [#/Vol] 5.02 10*6/uL Normal 4.20-6.00 [facility] Comment on above: Order Comment: Speci men Type: BLOOD SPECIMENOrdering Facility: [facility] Address: [address] [place] [address] Performed By: #### 5 7021-8 ####[facility] LABIA [id number] [place] [address] WBC (Bld) [#/Vol] 6.60 10*3/uL Normal 3.70-11.00 [facility] Comment on above: Order Comment: Speci men Type: BLOOD SPECIMENOrdering Facility: [facility] Address: [address] [place] [address] Performed By: #### 5 7021-8 ####[facility] LABIA [id number] [place] [address] CNOVSPon 06-06-2023 CNOVSP Normal [facility] Comprehensive metabolic 2000 panelon 06-06-2023 Albumin [Mass/Vol] 4.6 g/dL Normal 3.9-4.9 [facility] Comment on above: Order Comment: Speci men Type: BLOOD SPECIMENOrdering Facility: [facility] Address: [address] [place] [address] Performed By: #### 2 4323-8 ####[facility] LABIA [id number] [place] [address] ALP [Catalytic activity/Vol] 82 U/L Normal 38-113 [facility] Comment on above: Order Comment: Speci men Type: BLOOD SPECIMENOrdering Facility: [facility] Address: [address] [address] Performed By: #### 2 4323-8 ####[facility] LABCLIA [id number] [place] [address] ALT [Catalytic activity/Vol] 17 U/L Normal 10-54 [facility] Comment on above: Order Comment: Speci men Type: BLOOD SPECIMENOrdering Facility: [facility] Address: [address] [address] Performed By: #### 2 4323-8 ####[facility] LABCLIA [id number] [place] [address] Anion gap [Moles/Vol] 9 mmol/L Normal 9-18 [facility] Comment on above: Order Comment: Speci men Type: BLOOD SPECIMENOrdering Facility: [facility] Address: [address] [address] Performed By: #### 2 4323-8 ####[facility] LABCLIA [id number] [place] [address] AST [Catalytic activity/Vol] 25 U/L Normal 14-40 [facility] Comment on above: Order Comment: Speci men Type: BLOOD SPECIMENOrdering Facility: [facility] Address: [address] [address] Performed By: #### 2 4323-8 ####[facility] LABCLIA [id number] [place] [address] Bilirubin [Mass/Vol] 0.6 mg/dL Normal 0.2-1.3 [facility] Comment on above: Order Comment: Speci men Type: BLOOD SPECIMENOrdering Facility: [facility] Address: [address] [place] [address] Performed By: #### 2 4323-8 ####[facility] LABCLIA [id number] [place] [address] Calcium [Mass/Vol] 9.2 mg/dL Normal 8.5-10.2 [facility] Comment on above: Order Comment: Speci men Type: BLOOD SPECIMENOrdering Facility: [facility] Address: [address] [place] [address] Performed By: #### 2 4323-8 ####[facility] LABCLIA [id number] [place] [address] Chloride [Moles/Vol] 104 mmol/L Normal 97-105 [facility] Comment on above: Order Comment: Speci men Type: BLOOD SPECIMENOrdering Facility: [facility] Address: [address] [place] [address] Performed By: #### 2 4323-8 ####[facility] LABCLIA [id number] [place] [address] CO2 [Moles/Vol] 25 mmol/L Normal 22-30 [facility] Comment on above: Order Comment: Speci men Type: BLOOD SPECIMENOrdering Facility: [facility] Address: [address] [place] [address] Performed By: #### 2 4323-8 ####[facility] LABCLIA [id number] [place] [address] Creatinine [Mass/Vol] 2.01 mg/dL High 0.73-1.22 [facility] Comment on above: Order Comment: Speci men Type: BLOOD SPECIMENOrdering Facility: [facility] Address: [address] [place] [address] Performed By: #### 2 4323-8 ####[facility] LABCLIA [id number] [place] [address] Creatinine and Glomerular filtration rate.predicted panel (S/P/Bld) 32 mL/min/1.73m??? Low >=60 [facility] Comment on above: Order Comment: Speci men Type: BLOOD SPECIMENOrdering Facility: [facility] Address: [address] [id number] Result Comment: Viviana mated Glomerular Filtration Rate [...] actual GFR. Performed By: #### 2 4323-8 ####[facility] LABCLIA [id number] [place] [address] Glucose [Mass/Vol] 100 mg/dL High 74-99 [facility] Comment on above: Order Comment: Vero barton Type: BLOOD SPECIMENOrdering Facility: [facility] Address: [address] [place] [address] Result Comment: The [place] [employer] (ADA) provides guidance for cutoff [...] Standards of Medical Care in Diabetes 2016, [place] [employer]. Diabetes Care. 2016.39(Suppl 1). Performed By: #### 2 4323-8 ####[facility] LABCLIA [id number] [place] [address] Potassium [Moles/Vol] 4.6 mmol/L Normal 3.7-5.1 [facility] Comment on above: Order Comment: Vero barton Type: BLOOD SPECIMENOrdering Facility: [facility] Address: [address] [address] Performed By: #### 2 4323-8 ####[facility] LABCLIA [id number] [place] [address] Protein [Mass/Vol] 6.5 g/dL Normal 6.3-8.0 [facility] Comment on above: Order Comment: Speci men Type: BLOOD SPECIMENOrdering Facility: [facility] Address: [address] [place] [address] Performed By: #### 2 4323-8 ####[facility] LABCLIA [id number] [place] [address] Sodium [Moles/Vol] 138 mmol/L Normal 136-144 [facility] Comment on above: Order Comment: Speci men Type: BLOOD SPECIMENOrdering Facility: [facility] Address: [address] [place] [address] Performed By: #### 2 4323-8 ####[facility] LABCLIA [id number] [place] [address] Urea nitrogen [Mass/Vol] 36 mg/dL High 9-24 [facility] Comment on above: Order Comment: Speci men Type: BLOOD SPECIMENOrdering Facility: [facility] Address: [address] [place] [address] Performed By: #### 2 4323-8 ####[facility] LABCLIA [id number] [place] [address] Beverly Koehler 06-06-20 23 Cortisol [Mass/Vol] 6.4 ug/dL Normal 4.8-19.5 [facility] Comment on above: Order Comment: Speci men Type: BLOOD SPECIMENOrdering Facility: [facility] Address: [address] [place] [address] Result Comment: Prov ided reference range is from 6-10 AM sample collection time.Cortisol Reference Range: 6-10 AM = 4.8-19.5 ug/dL, 4-8 PM = 2.5-11.9 ug/dL Performed By: #### 3 016-3, 2143-6 ####[facility] LABCLIA [id number] [address] HbA1c (Bld)on 06-06-2023 Average glucose Estimated from glycated hemoglobin (Bld) [Mass/Vol] 97 mg/dL Normal [facility] Comment on above: Order Comment: Vero barton Type: BLOOD SPECIMENOrdering Facility: [facility] Address: [address] [place] [address] Result Comment: eAG: (Estimated average glucose) is a calculated value from HgbA1c and is primary care sales representative of the average blood glucose level in the last 2-3 month period. Performed By: #### 5 5454-3 ####[facility] LABCLIA [id number] [address] HbA1c (Bld) [Mass fraction] 5.0 % Normal 4.3-5.6 [facility] Comment on above: Order Comment: Farrahi oralia Type: BLOOD SPECIMENOrdering Facility: [facility] Address: [address] [place] [address] Result Comment: Amer [place] Diabetes Association guidelines indicate that patients with HgbA1c in the range 5.7-6.4% are at increased risk for development of diabetes, and intervention by lifestyle modification may be beneficial. HgbA1c greater or equal to 6.5% is considered diagnostic of diabetes. Performed By: #### 5 5454-3 ####[facility] LABCLIA [id number] [address] [place] TSH SerPl-aCncon 06-06-2023 TSH Qn 4.600 m[IU]/L High 0.270-4.200 [facility] Comment on above: Order Comment: Speci men Type: BLOOD SPECIMENOrdering Facility: [facility] Address: [address] [place] [address] Performed By: #### 3 016-3, 2143-6 ####[facility] LABCLIA [id number] [address] [place] CT ABD/PEL W IVCONon 08-18-[address] ABD/PEL W IVCON Normal [facility] CT CHEST W IVCONon 3 CT CHEST W IVCON Normal [facility] CBC W Auto Differential pane l (Bld)on 05-16-2023 Basophils (Bld) [#/Vol] 0.05 10*3/uL Normal <0.11 [facility] Comment on above: Order Comment: Speci men Type: BLOOD SPECIMENOrdering Facility: [facility] Address: [address] [place] [address] Performed By: #### 5 7021-8 ####[facility] LABCLIA [id number] [place] [address] Basophils/100 WBC (Bld) 0.7 % Normal [facility] Comment on above: Order Comment: Speci men Type: BLOOD SPECIMENOrdering Facility: [facility] Address: [address] [place] [address] Performed By: #### 5 7021-8 ####[facility] LABCLIA [id number] [place] [address] Differential cell count method Nom (Bld) Auto Normal [facility] Comment on above: Order Comment: Speci men Type: BLOOD SPECIMENOrdering Facility: [facility] Address: [address] [place] [address] Performed By: #### 5 7021-8 ####[facility] LABCLIA [id number] [place] [address] Eosinophils (Bld) [#/Vol] 0.31 10*3/uL Normal <0.46 [facility] Comment on above: Order Comment: Speci men Type: BLOOD SPECIMENOrdering Facility: [facility] Address: [address] [place] [address] Performed By: #### 5 7021-8 ####[facility] LABCLIA [id number] [place] [address] Eosinophils/100 WBC (Bld) 4.5 % Normal [facility] Comment on above: Order Comment: Speci men Type: BLOOD SPECIMENOrdering Facility: [facility] Address: [address] [address] Performed By: #### 5 7021-8 ####[facility] LABCLIA [id number] [place] [address] Erythrocyte distribution width (RBC) [Ratio] 14.3 % Normal 11.5-15.0 [facility] Comment on above: Order Comment: Speci men Type: BLOOD SPECIMENOrdering Facility: [facility] Address: [address] [place] [address] Performed By: #### 5 7021-8 ####[facility] LABCLIA [id number] [place] [address] Hematocrit (Bld) [Volume fraction] 40.4 % Normal 39.0-51.0 [facility] Comment on above: Order Comment: Speci men Type: BLOOD SPECIMENOrdering Facility: [facility] Address: [address] [place] [address] Performed By: #### 5 7021-8 ####[facility] LABIA [id number] [place] [address] Hemoglobin (Bld) [Mass/Vol] 13.3 g/dL Normal 13.0-17.0 [facility] Comment on above: Order Comment: Speci men Type: BLOOD SPECIMENOrdering Facility: [facility] Address: [address] [place] [address] Performed By: #### 5 7021-8 ####[facility] LABCLIA [id number] [place] [address] Immature granulocytes (Bld) [#/Vol] 10*3/uL Normal <0.10 [facility] Comment on above: Order Comment: Speci men Type: BLOOD SPECIMENOrdering Facility: [facility] Address: [address] [place] [address] Performed By: #### 5 7021-8 ####[facility] LABCLIA [id number] [place] [address] Immature granulocytes/100 WBC (Bld) 0.3 % Normal [facility] Comment on above: Order Comment: Speci men Type: BLOOD SPECIMENOrdering Facility: [facility] Address: [address] [place] [address] Performed By: #### 5 7021-8 ####[facility] LABCLIA [id number] [place] [address] Lymphocytes (Bld) [#/Vol] 0.94 10*3/uL Low 1.00-4.00 [facility] Comment on above: Order Comment: Speci men Type: BLOOD SPECIMENOrdering Facility: [facility] Address: [address] [place] [address] Performed By: #### 5 7021-8 ####[facility] LABCLIA [id number] [place] [address] Lymphocytes/100 WBC (Bld) 13.6 % Normal [facility] Comment on above: Order Comment: Speci men Type: BLOOD SPECIMENOrdering Facility: [facility] Address: [address] [place] [address] Performed By: #### 5 7021-8 ####[facility] LABCLIA [id number] [place] [address] MCH (RBC) [Entitic mass] 27.8 pg Normal 26.0-34.0 [facility] Comment on above: Order Comment: Speci men Type: BLOOD SPECIMENOrdering Facility: [facility] Address: [address] [place] [address] Performed By: #### 5 7021-8 ####[facility] LABCLIA [id number] [place] [address] MCHC (RBC) [Mass/Vol] 32.9 g/dL Normal 30.5-36.0 [facility] Comment on above: Order Comment: Speci men Type: BLOOD SPECIMENOrdering Facility: [facility] Address: [address] [address] Performed By: #### 5 7021-8 ####[facility] LABIA [id number] [place] [address] MCV (RBC) [Entitic vol] 84.5 fL Normal 80.0-100.0 [facility] Comment on above: Order Comment: Speci men Type: BLOOD SPECIMENOrdering Facility: [facility] Address: [address] [place] [address] Performed By: #### 5 7021-8 ####[facility] LABIA [id number] [place] [address] Monocytes (Bld) [#/Vol] 0.33 10*3/uL Normal <0.87 [facility] Comment on above: Order Comment: Speci men Type: BLOOD SPECIMENOrdering Facility: [facility] Address: [address] [place] [address] Performed By: #### 5 7021-8 ####[facility] LABIA [id number] [place] [address] Monocytes/100 WBC (Bld) 4.8 % Normal [facility] Comment on above: Order Comment: Speci men Type: BLOOD SPECIMENOrdering Facility: [facility] Address: [address] [address] Performed By: #### 5 7021-8 ####[facility] LABCLIA [id number] [place] [address] Neutrophils (Bld) [#/Vol] 5.26 10*3/uL Normal 1.45-7.50 [facility] Comment on above: Order Comment: Speci men Type: BLOOD SPECIMENOrdering Facility: [facility] Address: [address] [place] [address] Performed By: #### 5 7021-8 ####[facility] LABCLIA [id number] [place] [address] Neutrophils/100 WBC (Bld) 76.1 % Normal [facility] Comment on above: Order Comment: Speci men Type: BLOOD SPECIMENOrdering Facility: [facility] Address: [address] [place] [address] Performed By: #### 5 7021-8 ####[facility] LABCLIA [id number] [place] [address] Nucleated RBC (Bld) [#/Vol] 10*3/uL Normal <0.01 [facility] Comment on above: Order Comment: Speci men Type: BLOOD SPECIMENOrdering Facility: [facility] Address: [address] [place] [address] Performed By: #### 5 7021-8 ####[facility] LABCLIA [id number] [place] [address] Nucleated RBC/100 WBC (Bld) [Ratio] 0.0 /100 WBC Normal [facility] Comment on above: Order Comment: Speci men Type: BLOOD SPECIMENOrdering Facility: [facility] Address: [address] [place] [address] Performed By: #### 5 7021-8 ####[facility] LABCLIA [id number] [place] [address] Platelet mean volume (Bld) [Entitic vol] 8.8 fL Low 9.0-12.7 [facility] Comment on above: Order Comment: Speci men Type: BLOOD SPECIMENOrdering Facility: [facility] Address: [address] [place] [address] Performed By: #### 5 7021-8 ####[facility] LABCLIA [id number] [place] [address] Platelets (Bld) [#/Vol] 188 10*3/uL Normal 150-400 [facility] Comment on above: Order Comment: Speci men Type: BLOOD SPECIMENOrdering Facility: [facility] Address: [address] [place], [place] [address] Performed By: #### 5 7021-8 ####[facility] LABCLIA [id number] [place] [address] RBC (Bld) [#/Vol] 4.78 10*6/uL Normal 4.20-6.00 [facility] Comment on above: Order Comment: Speci men Type: BLOOD SPECIMENOrdering Facility: [facility] Address: [address] [address] Performed By: #### 5 7021-8 ####[facility] LABCLIA [id number] [place] [address] WBC (Bld) [#/Vol] 6.91 10*3/uL Normal 3.70-11.00 [facility] Comment on above: Order Comment: Speci men Type: BLOOD SPECIMENOrdering Facility: [facility] Address: [address] [address] Performed By: #### 5 7021-8 ####[facility] LABCLIA [id number] [place] [address] CNOVSPon 05-16-2023 CNOVSP Normal [facility] Comprehensive metabolic 2000 panelon 05-16-2023 Albumin [Mass/Vol] 4.2 g/dL Normal 3.9-4.9 [facility] Comment on above: Order Comment: Speci men Type: BLOOD SPECIMENOrdering Facility: [facility] Address: [address] [address] Performed By: #### 2 4323-8 ####[facility] LABCLIA [id number] [place] [address] ALP [Catalytic activity/Vol] 75 U/L Normal 38-113 [facility] Comment on above: Order Comment: Speci men Type: BLOOD SPECIMENOrdering Facility: [facility] Address: [address] [address] Performed By: #### 2 4323-8 ####[facility] LABCLIA [id number] [place] [address] ALT [Catalytic activity/Vol] 17 U/L Normal 10-54 [facility] Comment on above: Order Comment: Speci men Type: BLOOD SPECIMENOrdering Facility: [facility] Address: [address] [address] Performed By: #### 2 4323-8 ####[facility] LABCLIA [id number] [place] [address] Anion gap [Moles/Vol] 9 mmol/L Normal 9-18 [facility] Comment on above: Order Comment: Speci men Type: BLOOD SPECIMENOrdering Facility: [facility] Address: [address] [place] [address] Performed By: #### 2 4323-8 ####[facility] LABCLIA [id number] [place] [address] AST [Catalytic activity/Vol] 26 U/L Normal 14-40 [facility] Comment on above: Order Comment: Speci men Type: BLOOD SPECIMENOrdering Facility: [facility] Address: [address] [place] [address] Performed By: #### 2 4323-8 ####[facility] LABCLIA [id number] [place] [address] Bilirubin [Mass/Vol] 0.5 mg/dL Normal 0.2-1.3 [facility] Comment on above: Order Comment: Speci men Type: BLOOD SPECIMENOrdering Facility: [facility] Address: [address] [place] [address] Performed By: #### 2 4323-8 ####[facility] LABCLIA [id number] [place] [address] Calcium [Mass/Vol] 8.9 mg/dL Normal 8.5-10.2 [facility] Comment on above: Order Comment: Speci men Type: BLOOD SPECIMENOrdering Facility: [facility] Address: [address] [address] Performed By: #### 2 4323-8 ####[facility] LABCLIA [id number] [place] [address] Chloride [Moles/Vol] 103 mmol/L Normal 97-105 [facility] Comment on above: Order Comment: Speci men Type: BLOOD SPECIMENOrdering Facility: [facility] Address: [address] [place] [address] Performed By: #### 2 4323-8 ####[facility] LABCLIA [id number] [place] [address] CO2 [Moles/Vol] 25 mmol/L Normal 22-30 [facility] Comment on above: Order Comment: Speci men Type: BLOOD SPECIMENOrdering Facility: [facility] Address: [address] [place] [address] Performed By: #### 2 4323-8 ####[facility] LABCLIA [id number] [place] [address] Creatinine [Mass/Vol] 1.87 mg/dL High 0.73-1.22 [facility] Comment on above: Order Comment: Speci men Type: BLOOD SPECIMENOrdering Facility: [facility] Address: [address] [place] [address] Performed By: #### 2 4323-8 ####[facility] LABCLIA [id number] [place] [address] ESTIMATED GLOMERULAR FILTRATION RATE 35 mL/min/1.73m??? Low >=60 [facility] Comment on above: Order Comment: Speci men Type: BLOOD SPECIMENOrdering Facility: [facility] Address: [address] [place] [address] Result Comment: Viviana mated Glomerular Filtration Rate [...] actual GFR. Performed By: #### 2 4323-8 ####[facility] LABCLIA [id number] [place] [address] Glucose [Mass/Vol] 142 mg/dL High 74-99 [facility] Comment on above: Order Comment: Vero barton Type: BLOOD SPECIMENOrdering Facility: [facility] Address: [address] [address] Result Comment: The [place] Diabetes Association (ADA) provides guidance for cutoff [...] Standards of Medical Care in Diabetes 2016, [place] Diabetes Association. Diabetes Care. 2016.39(Suppl 1). Performed By: #### 2 4323-8 ####[facility] LABCLIA [id number] [place] [address] Potassium [Moles/Vol] 3.9 mmol/L Normal 3.7-5.1 [facility] Comment on above: Order Comment: Vero barton Type: BLOOD SPECIMENOrdering Facility: [facility] Address: [address] [id number] Performed By: #### 2 4323-8 ####[facility] LABIA [id number] [place] [address] Protein [Mass/Vol] 6.1 g/dL Low 6.3-8.0 [facility] Comment on above: Order Comment: Vero barton Type: BLOOD SPECIMENOrdering Facility: [facility] Address: [address] [address] Performed By: #### 2 4323-8 ####[facility] LABCLIA [id number] [place] [address] Sodium [Moles/Vol] 137 mmol/L Normal 136-144 [facility] Comment on above: Order Comment: Speci men Type: BLOOD SPECIMENOrdering Facility: [facility] Address: [address] [place] [address] Performed By: #### 2 4323-8 ####[facility] LABCLIA [id number] [place] [address] Urea nitrogen [Mass/Vol] 24 mg/dL Normal 9-24 [facility] Comment on above: Order Comment: Speci men Type: BLOOD SPECIMENOrdering Facility: [facility] Address: [address] [place] [address] Performed By: #### 2 4323-8 ####[facility] LABCLIA [id number] [place] [address] Cortis Nainal-Ricaon 05-16-20 23 Cortisol [Mass/Vol] 9.2 ug/dL Normal 4.8-19.5 [facility] Comment on above: Order Comment: Speci men Type: BLOOD SPECIMENOrdering Facility: [facility] Address: [address] [place] [address] Result Comment: Prov ided reference range is from 6-10 AM sample collection time.Cortisol Reference Range: 6-10 AM = 4.8-19.5 ug/dL, 4-8 PM = 2.5-11.9 ug/dL Performed By: #### 2 143-6, 3016-3 ####[facility] LABCLIA [id number] [place] [address] [place] HbA1c (Bld)on 05-16-2023 Average glucose Estimated from glycated hemoglobin (Bld) [Mass/Vol] 94 mg/dL Normal [facility] Comment on above: Order Comment: Speci men Type: BLOOD SPECIMENOrdering Facility: [facility] Address: [address] [place] [address] Result Comment: eAG: (Estimated average glucose) is a calculated value from HgbA1c and is primary care sales representative of the average blood glucose level in the last 2-3 month period. Performed By: #### 5 5454-3 ####[facility] LABCLIA [id number] [address] [place] [id number] [place] HbA1c (Bld) [Mass fraction] 4.9 % Normal 4.3-5.6 [facility] Comment on above: Order Comment: Farrahi men Type: BLOOD SPECIMENOrdering Facility: [facility] Address: [address] [place] [address] Result Comment: [place] Diabetes Association guidelines indicate that patients with HgbA1c in the range 5.7-6.4% are at increased risk for development of diabetes, and intervention by lifestyle modification may be beneficial. HgbA1c greater or equal to 6.5% is considered diagnostic of diabetes. Performed By: #### 5 5454-3 ####[facility] LABIA [id number] [address] [place] [id number] [place] TSH SerPl-aCncon 05-16-2023 TSH Qn 2.580 m[IU]/L Normal 0.270-4.200 [facility] Comment on above: Order Comment: Vero men Type: BLOOD SPECIMENOrdering Facility: [facility] Address: [place] [address] Performed By: #### 2 143-6, 3016-3 ####[facility] LABIA [id number] [address] [id number] [place] Consultation Noteon 04-26-20 23 Consultation Note [id number]#[id number] 0CD:127 Normal [facility] Follow-Upon 04-26-2023 Follow-Up [id number] Juan Jose Austin 1940 M Date Provider Department Center 04/26/2023 JOSESITO GARY [facility] Family History Problem Relation Age of Onset Heart failure Mother Family Status - Relation Status Age at Mother Level of Service:12725 [place] OFFICE/OUTPATIENT ESTABLISHED MOD MDM 30-39 MIN Reason for Visit and Comments: Follow-up [901807] - Pt is here for PPM F/U Normal [facility] CBC W Auto Differential pane l (Bld)on 04-25-2023 Basophils (Bld) [#/Vol] 0.03 10*3/uL Normal <0.11 [facility] Comment on above: Order Comment: Speci men Type: BLOOD SPECIMENOrdering Facility: [facility] Address: [address] [address] Performed By: #### 5 7021-8 ####[facility] LABCLIA [id number] [place] [address] Basophils/100 WBC (Bld) 0.5 % Normal [facility] Comment on above: Order Comment: Speci men Type: BLOOD SPECIMENOrdering Facility: [facility] Address: [address] [address] Performed By: #### 5 7021-8 ####[facility] LABCLIA [id number] [place] [address] Differential cell count method Nom (Bld) Auto Normal [facility] Comment on above: Order Comment: Speci men Type: BLOOD SPECIMENOrdering Facility: [facility] Address: [address] [address] Performed By: #### 5 7021-8 ####[facility] LABCLIA [id number] [place] [address] Eosinophils (Bld) [#/Vol] 0.31 10*3/uL Normal <0.46 [facility] Comment on above: Order Comment: Speci men Type: BLOOD SPECIMENOrdering Facility: [facility] Address: [address] [address] Performed By: #### 5 7021-8 ####[facility] LABCLIA [id number] [place] [address] Eosinophils/100 WBC (Bld) 4.8 % Normal [facility] Comment on above: Order Comment: Speci men Type: BLOOD SPECIMENOrdering Facility: [facility] Address: [address] [place] [address] Performed By: #### 5 7021-8 ####[facility] LABIA [id number] [place] [address] Erythrocyte distribution width (RBC) [Ratio] 15.3 % High 11.5-15.0 [facility] Comment on above: Order Comment: Speci men Type: BLOOD SPECIMENOrdering Facility: [facility] Address: [address] [place] [address] Performed By: #### 5 7021-8 ####[facility] LABIA [id number] [place] [address] Hematocrit (Bld) [Volume fraction] 37.9 % Low 39.0-51.0 [facility] Comment on above: Order Comment: Speci men Type: BLOOD SPECIMENOrdering Facility: [facility] Address: [address] [place] [address] Performed By: #### 5 7021-8 ####[facility] LABIA [id number] [place] [address] Hemoglobin (Bld) [Mass/Vol] 12.6 g/dL Low 13.0-17.0 [facility] Comment on above: Order Comment: Speci men Type: BLOOD SPECIMENOrdering Facility: [facility] Address: [address] [place] [address] Performed By: #### 5 7021-8 ####[facility] LABIA [id number] [place] [address] Immature granulocytes (Bld) [#/Vol] 10*3/uL Normal <0.10 [facility] Comment on above: Order Comment: Speci men Type: BLOOD SPECIMENOrdering Facility: [facility] Address: [address] [address] Performed By: #### 5 7021-8 ####[facility] LABCLIA [id number] [place] [address] Immature granulocytes/100 WBC (Bld) 0.2 % Normal [facility] Comment on above: Order Comment: Speci men Type: BLOOD SPECIMENOrdering Facility: [facility] Address: [address] [place] [address] Performed By: #### 5 7021-8 ####[facility] LABCLIA [id number] [place] [address] Lymphocytes (Bld) [#/Vol] 0.73 10*3/uL Low 1.00-4.00 [facility] Comment on above: Order Comment: Speci men Type: BLOOD SPECIMENOrdering Facility: [facility] Address: [address] [place] [address] Performed By: #### 5 7021-8 ####[facility] LABIA [id number] [place] [address] Lymphocytes/100 WBC (Bld) 11.3 % Normal [facility] Comment on above: Order Comment: Speci men Type: BLOOD SPECIMENOrdering Facility: [facility] Address: [address] [place] [address] Performed By: #### 5 7021-8 ####[facility] LABCLIA [id number] [place] [address] MCH (RBC) [Entitic mass] 27.9 pg Normal 26.0-34.0 [facility] Comment on above: Order Comment: Speci men Type: BLOOD SPECIMENOrdering Facility: [facility] Address: [address] [place] [address] Performed By: #### 5 7021-8 ####[facility] LABCLIA [id number] [place] [address] MCHC (RBC) [Mass/Vol] 33.2 g/dL Normal 30.5-36.0 [facility] Comment on above: Order Comment: Speci men Type: BLOOD SPECIMENOrdering Facility: [facility] Address: [address] [place] [address] Performed By: #### 5 7021-8 ####[facility] LABCLIA [id number] [place] [address] MCV (RBC) [Entitic vol] 83.8 fL Normal 80.0-100.0 [facility] Comment on above: Order Comment: Speci men Type: BLOOD SPECIMENOrdering Facility: [facility] Address: [address] [place] [address] Performed By: #### 5 7021-8 ####[facility] LABCLIA [id number] [place] [address] Monocytes (Bld) [#/Vol] 0.55 10*3/uL Normal <0.87 [facility] Comment on above: Order Comment: Speci men Type: BLOOD SPECIMENOrdering Facility: [facility] Address: [address] [place] [address] Performed By: #### 5 7021-8 ####[facility] LABCLIA [id number] [place] [address] Monocytes/100 WBC (Bld) 8.5 % Normal [facility] Comment on above: Order Comment: Speci men Type: BLOOD SPECIMENOrdering Facility: [facility] Address: [address] [place] [address] Performed By: #### 5 7021-8 ####[facility] LABCLIA [id number] [place] [address] Neutrophils (Bld) [#/Vol] 4.81 10*3/uL Normal 1.45-7.50 [facility] Comment on above: Order Comment: Speci men Type: BLOOD SPECIMENOrdering Facility: [facility] Address: [address] [place] [address] Performed By: #### 5 7021-8 ####[facility] LABCLIA [id number] [place] [address] Neutrophils/100 WBC (Bld) 74.7 % Normal [facility] Comment on above: Order Comment: Speci men Type: BLOOD SPECIMENOrdering Facility: [facility] Address: [address] [place] [address] Performed By: #### 5 7021-8 ####[facility] LABCLIA [id number] [place] [address] Nucleated RBC (Bld) [#/Vol] 10*3/uL Normal <0.01 [facility] Comment on above: Order Comment: Speci men Type: BLOOD SPECIMENOrdering Facility: [facility] Address: [address] [place] [address] Performed By: #### 5 7021-8 ####[facility] LABCLIA [id number] [place] [address] Nucleated RBC/100 WBC (Bld) [Ratio] 0.0 /100 WBC Normal [facility] Comment on above: Order Comment: Speci men Type: BLOOD SPECIMENOrdering Facility: [facility] Address: [address] [place] [address] Performed By: #### 5 7021-8 ####[facility] LABCLIA [id number] [place] [address] Platelet mean volume (Bld) [Entitic vol] 8.9 fL Low 9.0-12.7 [facility] Comment on above: Order Comment: Speci men Type: BLOOD SPECIMENOrdering Facility: [facility] Address: [address] [place] [address] Performed By: #### 5 7021-8 ####[facility] LABCLIA [id number] [place] [address] Platelets (Bld) [#/Vol] 208 10*3/uL Normal 150-400 [facility] Comment on above: Order Comment: Speci men Type: BLOOD SPECIMENOrdering Facility: [facility] Address: [address] [address] Performed By: #### 5 7021-8 ####[facility] LABIA [id number] [place] [address] RBC (Bld) [#/Vol] 4.52 10*6/uL Normal 4.20-6.00 [facility] Comment on above: Order Comment: Speci men Type: BLOOD SPECIMENOrdering Facility: [facility] Address: [address] [address] Performed By: #### 5 7021-8 ####[facility] [id number] [place] [address] WBC (Bld) [#/Vol] 6.44 10*3/uL Normal 3.70-11.00 [facility] Comment on above: Order Comment: Speci men Type: BLOOD SPECIMENOrdering Facility: [facility] Address: [address] [place] [address] Performed By: #### 5 7021-8 ####[facility] [id number] [place] [address] CNOVSPon 04-25-2023 CNOVSP Normal [facility] Comprehensive metabolic 2000 panelon 04-25-2023 Albumin [Mass/Vol] 4.0 g/dL Normal 3.9-4.9 [facility] Comment on above: Order Comment: Speci men Type: BLOOD SPECIMENOrdering Facility: External Submitter Address: , , Performed By: #### 2 4323-8 ####[facility] LABIA [id number] [place] [address] ALP [Catalytic activity/Vol] 75 U/L Normal 38-113 [facility] Comment on above: Order Comment: Speci men Type: BLOOD SPECIMENOrdering Facility: External Submitter Address: , , Performed By: #### 2 4323-8 ####[facility] LABCLIA [id number] [place] [address] ALT [Catalytic activity/Vol] 17 U/L Normal 10-54 [facility] Comment on above: Order Comment: Speci men Type: BLOOD SPECIMENOrdering Facility: External Submitter Address: , , Performed By: #### 2 4323-8 ####[facility] LABCLIA [id number] [place] [address] Anion gap [Moles/Vol] 7 mmol/L Low 9-18 [facility] Comment on above: Order Comment: Speci men Type: BLOOD SPECIMENOrdering Facility: External Submitter Address: , , Performed By: #### 2 4323-8 ####[facility] LABCLIA [id number] [place] [address] AST [Catalytic activity/Vol] 26 U/L Normal 14-40 [facility] Comment on above: Order Comment: Speci men Type: BLOOD SPECIMENOrdering Facility: External Submitter Address: , , Performed By: #### 2 4323-8 ####[facility] LABCLIA [id number] [place] [address] Bilirubin [Mass/Vol] 0.4 mg/dL Normal 0.2-1.3 [facility] Comment on above: Order Comment: Speci men Type: BLOOD SPECIMENOrdering Facility: External Submitter Address: , , Performed By: #### 2 4323-8 ####[facility] LABCLIA [id number] [place] [address] Calcium [Mass/Vol] 8.9 mg/dL Normal 8.5-10.2 [facility] Comment on above: Order Comment: Speci men Type: BLOOD SPECIMENOrdering Facility: External Submitter Address: , , Performed By: #### 2 4323-8 ####[facility] LABCLIA [id number] [place] [address] Chloride [Moles/Vol] 106 mmol/L High 97-105 [facility] Comment on above: Order Comment: Speci men Type: BLOOD SPECIMENOrdering Facility: External Submitter Address: , , Performed By: #### 2 4323-8 ####[facility] LABCLIA [id number] [place] [address] CO2 [Moles/Vol] 26 mmol/L Normal 22-30 [facility] Comment on above: Order Comment: Speci men Type: BLOOD SPECIMENOrdering Facility: External Submitter Address: , , Performed By: #### 2 4323-8 ####[facility] LABCLIA [id number] [place] [address] Creatinine [Mass/Vol] 1.71 mg/dL High 0.73-1.22 [facility] Comment on above: Order Comment: Speci men Type: BLOOD SPECIMENOrdering Facility: External Submitter Address: , , Performed By: #### 2 4323-8 ####[facility] LABIA [id number] [place] [address] ESTIMATED GLOMERULAR FILTRATION RATE 39 mL/min/1.73m??? Low >=60 [facility] Comment on above: Order Comment: Speci [...] actual GFR. Performed By: #### 2 4323-8 ####[facility] LABIA [id number] [place] [address] Glucose [Mass/Vol] 111 mg/dL High 74-99 [facility] Comment on above: Order Comment: Speci men Type: BLOOD SPECIMENOrdering Facility: External Submitter Address: , , Result Comment: The [place] Diabetes Association (ADA) provides guidance for cutoff [...] Standards of Medical Care in Diabetes 2016, [place] [employer]. Diabetes Care. 2016.39(Suppl 1). Performed By: #### 2 4323-8 ####[facility] LABIA [id number] [place] [address] Potassium [Moles/Vol] 3.9 mmol/L Normal 3.7-5.1 [facility] Comment on above: Order Comment: Speci men Type: BLOOD SPECIMENOrdering Facility: External Submitter Address: , , Performed By: #### 2 4323-8 ####[facility] LABCLIA [id number] [place] [address] Protein [Mass/Vol] 6.0 g/dL Low 6.3-8.0 [facility] Comment on above: Order Comment: Vero barton Type: BLOOD SPECIMENOrdering Facility: External Submitter Address: , , Performed By: #### 2 4323-8 ####[facility] LABCLIA [id number] [place] [address] Sodium [Moles/Vol] 139 mmol/L Normal 136-144 [facility] Comment on above: Order Comment: Vero barton Type: BLOOD SPECIMENOrdering Facility: External Submitter Address: , , Performed By: #### 2 4323-8 ####[facility] LABCLIA [id number] [place] [address] Urea nitrogen [Mass/Vol] 27 mg/dL High 9-24 [facility] Comment on above: Order Comment: Vero barton Type: BLOOD SPECIMENOrdering Facility: External Submitter Address: , , Performed By: #### 2 4323-8 ####[facility] LABCLIA [id number] [place] [address] Beverly Koehler 04-25-20 Cortisol [Mass/Vol] 8.8 ug/dL Normal 4.8-19.5 [facility] Comment on above: Order Comment: Farrahi men Type: BLOOD SPECIMENOrdering Facility: External Submitter Address: , , Result Comment: Prov ided reference range is from 6-10 AM sample collection time.Cortisol Reference Range: 6-10 AM = 4.8-19.5 ug/dL, 4-8 PM = 2.5-11.9 ug/dL Performed By: #### 3 016-3, 2143-6, 3024-7, 3053-6 ####[facility] LABCLIA [id number] [place] [address] [place] HbA1c (Bld)on 04-25-2023 Average glucose Estimated from glycated hemoglobin (Bld) [Mass/Vol] 97 mg/dL Normal [facility] Comment on above: Order Comment: Vero barton Type: BLOOD SPECIMENOrdering Facility: [facility] Address: [address] [place] [address] Result Comment: eAG: (Estimated average glucose) is a calculated value from HgbA1c and is primary care sales representative of the average blood glucose level in the last 2-3 month period. Performed By: #### 5 5454-3 ####[facility] LABCLIA [id number] [place] [address] [place] HbA1c (Bld) [Mass fraction] 5.0 % Normal 4.3-5.6 [facility] Comment on above: Order Comment: Vero barton Type: BLOOD SPECIMENOrdering Facility: [facility] Address: [address] [address] Result Comment: [place] Diabetes Association guidelines indicate that patients with HgbA1c in the range 5.7-6.4% are at increased risk for development of diabetes, and intervention by lifestyle modification may be beneficial. HgbA1c greater or equal to 6.5% is considered diagnostic of diabetes. Performed By: #### 5 5454-3 ####[facility] LABCLIA [id number] [place] [address] [place] T3 SerPl-mCncon 04-25-2023 T3 [Mass/Vol] 99 ng/dL Normal 79-165 [facility] Comment on above: Order Comment: Speci men Type: BLOOD SPECIMENOrdering Facility: External Submitter Address: , , Performed By: #### 3 016-3, 6, 7, 3053-03 ####[facility] [id number] [address] [place] T4 Free SerPl-mCncon 023 Free T4 [Mass/Vol] 1.1 ng/dL Normal 0.9-1.7 [facility] Comment on above: Order Comment: Speci men Type: BLOOD SPECIMENOrdering Facility: External Submitter Address: , , Performed By: #### 3 016-3, 6, 3024-04, 3053-03 ####[facility] [id number] [address] [place] TSH SerPl-aCncon 04-25-2023 TSH Qn 2.800 m[IU]/L Normal 0.270-4.200 [facility] Comment on above: Order Comment: Speci men Type: BLOOD SPECIMENOrdering Facility: External Submitter Address: , , Performed By: #### 3 016-3, 6, 3024-04, 3053-03 ####[facility] LABIA [id number] [address] [place] CBC W Auto Differential pane l (Bld)on 04-04-2023 Basophils (Bld) [#/Vol] 0.06 10*3/uL Normal <0.11 [facility] Comment on above: Order Comment: Speci men Type: BLOOD SPECIMENOrdering Facility: [facility] Address: [address] [place] [address] Performed By: #### 5 7021-8 ####[facility] LABCLIA [id number] [place] [address] Basophils/100 WBC (Bld) 0.9 % Normal [facility] Comment on above: Order Comment: Speci men Type: BLOOD SPECIMENOrdering Facility: [facility] Address: [address] [address] Performed By: #### 5 7021-8 ####[facility] LABCLIA [id number] [place] [address] Differential cell count method Nom (Bld) Auto Normal [facility] Comment on above: Order Comment: Speci men Type: BLOOD SPECIMENOrdering Facility: [facility] Address: [address] [place] [address] Performed By: #### 5 7021-8 ####[facility] LABCLIA [id number] [place] [address] Eosinophils (Bld) [#/Vol] 0.32 10*3/uL Normal <0.46 [facility] Comment on above: Order Comment: Speci men Type: BLOOD SPECIMENOrdering Facility: [facility] Address: [address] [address] Performed By: #### 5 7021-8 ####[facility] LABCLIA [id number] [place] [address] Eosinophils/100 WBC (Bld) 4.8 % Normal [facility] Comment on above: Order Comment: Speci men Type: BLOOD SPECIMENOrdering Facility: [facility] Address: [address] [place] [address] Performed By: #### 5 7021-8 ####[facility] LABCLIA [id number] [place] [address] Erythrocyte distribution width (RBC) [Ratio] 15.8 % High 11.5-15.0 [facility] Comment on above: Order Comment: Speci men Type: BLOOD SPECIMENOrdering Facility: [facility] Address: [address] [place] [address] Performed By: #### 5 7021-8 ####[facility] LABCLIA [id number] [place] [address] Hematocrit (Bld) [Volume fraction] 38.8 % Low 39.0-51.0 [facility] Comment on above: Order Comment: Speci men Type: BLOOD SPECIMENOrdering Facility: [facility] Address: [address] [place] [address] Performed By: #### 5 7021-8 ####[facility] LABCLIA [id number] [place] [address] Hemoglobin (Bld) [Mass/Vol] 12.8 g/dL Low 13.0-17.0 [facility] Comment on above: Order Comment: Speci men Type: BLOOD SPECIMENOrdering Facility: [facility] Address: [address] [place] [address] Performed By: #### 5 7021-8 ####[facility] LABCLIA [id number] [place] [address] Immature granulocytes (Bld) [#/Vol] 0.03 10*3/uL Normal <0.10 [facility] Comment on above: Order Comment: Speci men Type: BLOOD SPECIMENOrdering Facility: [facility] Address: [address] [place] [address] Performed By: #### 5 7021-8 ####[facility] LABCLIA [id number] [place] [address] Immature granulocytes/100 WBC (Bld) 0.5 % Normal [facility] Comment on above: Order Comment: Speci men Type: BLOOD SPECIMENOrdering Facility: [facility] Address: [address] [address] Performed By: #### 5 7021-8 ####[facility] LABCLIA [id number] [place] [address] Lymphocytes (Bld) [#/Vol] 0.85 10*3/uL Low 1.00-4.00 [facility] Comment on above: Order Comment: Speci men Type: BLOOD SPECIMENOrdering Facility: [facility] Address: [address] [address] Performed By: #### 5 7021-8 ####[facility] LABIA [id number] [place] [address] Lymphocytes/100 WBC (Bld) 12.8 % Normal [facility] Comment on above: Order Comment: Speci men Type: BLOOD SPECIMENOrdering Facility: [facility] Address: [address] [place] [address] Performed By: #### 5 7021-8 ####[facility] LABIA [id number] [place] [address] MCH (RBC) [Entitic mass] 27.8 pg Normal 26.0-34.0 [facility] Comment on above: Order Comment: Speci men Type: BLOOD SPECIMENOrdering Facility: [facility] Address: [address] [place] [address] Performed By: #### 5 7021-8 ####[facility] LABIA [id number] [place] [address] MCHC (RBC) [Mass/Vol] 33.0 g/dL Normal 30.5-36.0 [facility] Comment on above: Order Comment: Speci men Type: BLOOD SPECIMENOrdering Facility: [facility] Address: [address] [place] [address] Performed By: #### 5 7021-8 ####[facility] LABIA [id number] [place] [address] MCV (RBC) [Entitic vol] 84.2 fL Normal 80.0-100.0 [facility] Comment on above: Order Comment: Speci men Type: BLOOD SPECIMENOrdering Facility: [facility] Address: [address] [place] [address] Performed By: #### 5 7021-8 ####[facility] LABCLIA [id number] [place] [address] Monocytes (Bld) [#/Vol] 0.48 10*3/uL Normal <0.87 [facility] Comment on above: Order Comment: Speci men Type: BLOOD SPECIMENOrdering Facility: [facility] Address: [address] [place] [address] Performed By: #### 5 7021-8 ####[facility] LABCLIA [id number] [place] [address] Monocytes/100 WBC (Bld) 7.3 % Normal [facility] Comment on above: Order Comment: Speci men Type: BLOOD SPECIMENOrdering Facility: [facility] Address: [address] [place] [address] Performed By: #### 5 7021-8 ####[facility] LABCLIA [id number] [place] [address] Neutrophils (Bld) [#/Vol] 4.88 10*3/uL Normal 1.45-7.50 [facility] Comment on above: Order Comment: Speci men Type: BLOOD SPECIMENOrdering Facility: [facility] Address: [address] [place] [address] Performed By: #### 5 7021-8 ####[facility] LABCLIA [id number] [place] [address] Neutrophils/100 WBC (Bld) 73.7 % Normal [facility] Comment on above: Order Comment: Speci men Type: BLOOD SPECIMENOrdering Facility: [facility] Address: [address] [place] [address] Performed By: #### 5 7021-8 ####[facility] LABCLIA [id number] [place] [address] Nucleated RBC (Bld) [#/Vol] 10*3/uL Normal <0.01 [facility] Comment on above: Order Comment: Speci men Type: BLOOD SPECIMENOrdering Facility: [facility] Address: [address] [place] [address] Performed By: #### 5 7021-8 ####[facility] LABCLIA [id number] [place] [address] Nucleated RBC/100 WBC (Bld) [Ratio] 0.0 /100 WBC Normal [facility] Comment on above: Order Comment: Speci men Type: BLOOD SPECIMENOrdering Facility: [facility] Address: [address] [place] [address] Performed By: #### 5 7021-8 ####[facility] LABIA [id number] [place] [address] Platelet mean volume (Bld) [Entitic vol] 8.8 fL Low 9.0-12.7 [facility] Comment on above: Order Comment: Speci men Type: BLOOD SPECIMENOrdering Facility: [facility] Address: [address] [place] [address] Performed By: #### 5 7021-8 ####[facility] LABCLIA [id number] [place] [address] Platelets (Bld) [#/Vol] 213 10*3/uL Normal 150-400 [facility] Comment on above: Order Comment: Speci men Type: BLOOD SPECIMENOrdering Facility: [facility] Address: [address] [place] [address] Performed By: #### 5 7021-8 ####[facility] LABCLIA [id number] [place] [address] RBC (Bld) [#/Vol] 4.61 10*6/uL Normal 4.20-6.00 [facility] Comment on above: Order Comment: Speci men Type: BLOOD SPECIMENOrdering Facility: [facility] Address: [address] [place] [address] Performed By: #### 5 7021-8 ####[facility] LABCLIA [id number] [place] [address] WBC (Bld) [#/Vol] 6.62 10*3/uL Normal 3.70-11.00 [facility] Comment on above: Order Comment: Speci men Type: BLOOD SPECIMENOrdering Facility: [facility] Address: [address] [place] [address] Performed By: #### 5 7021-8 ####[facility] LABCLIA [id number] [place] [address] CNOVSPon 04-04-2023 CNOVSP Normal [facility] Comprehensive metabolic 2000 panelon 04-04-2023 Albumin [Mass/Vol] 4.4 g/dL Normal 3.9-4.9 [facility] Comment on above: Order Comment: Speci men Type: BLOOD SPECIMENOrdering Facility: [facility] Address: [address] [place] [address] Performed By: #### 2 4323-8 ####[facility] LABCLIA [id number] [place] [address] ALP [Catalytic activity/Vol] 64 U/L Normal 38-113 [facility] Comment on above: Order Comment: Speci men Type: BLOOD SPECIMENOrdering Facility: [facility] Address: [address] [place] [address] Performed By: #### 2 4323-8 ####[facility] LABCLIA [id number] [place] [address] ALT [Catalytic activity/Vol] 13 U/L Normal 10-54 [facility] Comment on above: Order Comment: Speci men Type: BLOOD SPECIMENOrdering Facility: [facility] Address: [address] [address] Performed By: #### 2 4323-8 ####[facility] LABCLIA [id number] [place] [address] Anion gap [Moles/Vol] 10 mmol/L Normal 9-18 [facility] Comment on above: Order Comment: Speci men Type: BLOOD SPECIMENOrdering Facility: [facility] Address: [address] [address] Performed By: #### 2 4323-8 ####[facility] LABCLIA [id number] [place] [address] AST [Catalytic activity/Vol] 23 U/L Normal 14-40 [facility] Comment on above: Order Comment: Speci men Type: BLOOD SPECIMENOrdering Facility: [facility] Address: [address] [address] Performed By: #### 2 4323-8 ####[facility] LABCLIA [id number] [place] [address] Bilirubin [Mass/Vol] 0.5 mg/dL Normal 0.2-1.3 [facility] Comment on above: Order Comment: Speci men Type: BLOOD SPECIMENOrdering Facility: [facility] Address: [address] [address] Performed By: #### 2 4323-8 ####[facility] LABCLIA [id number] [place] [address] Calcium [Mass/Vol] 9.3 mg/dL Normal 8.5-10.2 [facility] Comment on above: Order Comment: Speci men Type: BLOOD SPECIMENOrdering Facility: [facility] Address: [address] [address] Performed By: #### 2 4323-8 ####[facility] LABCLIA [id number] [place] [address] Chloride [Moles/Vol] 104 mmol/L Normal 97-105 [facility] Comment on above: Order Comment: Speci men Type: BLOOD SPECIMENOrdering Facility: [facility] Address: [address] [place] [address] Performed By: #### 2 4323-8 ####[facility] LABCLIA [id number] [place] [address] CO2 [Moles/Vol] 26 mmol/L Normal 22-30 [facility] Comment on above: Order Comment: Speci men Type: BLOOD SPECIMENOrdering Facility: [facility] Address: [address] [place] [address] Performed By: #### 2 4323-8 ####[facility] LABCLIA [id number] [place] [address] Creatinine [Mass/Vol] 2.05 mg/dL High 0.73-1.22 [facility] Comment on above: Order Comment: Speci men Type: BLOOD SPECIMENOrdering Facility: [facility] Address: [address] [place] [address] Performed By: #### 2 4323-8 ####[facility] LABCLIA [id number] [place] [address] ESTIMATED GLOMERULAR FILTRATION RATE 32 mL/min/1.73m??? Low >=60 [facility] Comment on above: Order Comment: Speci men Type: BLOOD SPECIMENOrdering Facility: [facility] Address: [address] [place] [address] Result Comment: Viviana mated Glomerular Filtration Rate [...] actual GFR. Performed By: #### 2 4323-8 ####[facility] LABCLIA [id number] [place] [address] Glucose [Mass/Vol] 127 mg/dL High 74-99 [facility] Comment on above: Order Comment: Speci men Type: BLOOD SPECIMENOrdering Facility: [facility] Address: [address] [place] [address] Result Comment: The [place] Diabetes Association (ADA) provides guidance for cutoff [...] Standards of Medical Care in Diabetes 2016, [place] Diabetes Association. Diabetes Care. 2016.39(Suppl 1). Performed By: #### 2 4323-8 ####[facility] LABCLIA [id number] [place] [address] Potassium [Moles/Vol] 3.9 mmol/L Normal 3.7-5.1 [facility] Comment on above: Order Comment: Speci men Type: BLOOD SPECIMENOrdering Facility: [facility] Address: [address] [place] [address] Performed By: #### 2 4323-8 ####[facility] LABCLIA [id number] [place] [address] Protein [Mass/Vol] 6.3 g/dL Normal 6.3-8.0 [facility] Comment on above: Order Comment: Speci men Type: BLOOD SPECIMENOrdering Facility: [facility] Address: [address] [place] [address] Performed By: #### 2 4323-8 ####[facility] LABCLIA [id number] [place] [address] Sodium [Moles/Vol] 140 mmol/L Normal 136-144 [facility] Comment on above: Order Comment: Speci men Type: BLOOD SPECIMENOrdering Facility: [facility] Address: [address] [address] Performed By: #### 2 4323-8 ####[facility] LABCLIA [id number] [place] [address] Urea nitrogen [Mass/Vol] 26 mg/dL High 9-24 [facility] Comment on above: Order Comment: Speci men Type: BLOOD SPECIMENOrdering Facility: [facility] Address: [address] [address] Performed By: #### 2 4323-8 ####[facility] LABCLIA [id number] [place] [address] Cortshaye Nainal-mCncon 04-04-20 23 Cortisol [Mass/Vol] 9.9 ug/dL Normal 4.8-19.5 [facility] Comment on above: Order Comment: Speci men Type: BLOOD SPECIMENOrdering Facility: [facility] Address: [address] [address] Result Comment: Prov ided reference range is from 6-10 AM sample collection time.Cortisol Reference Range: 6-10 AM = 4.8-19.5 ug/dL, 4-8 PM = 2.5-11.9 ug/dL Performed By: #### 2 143-6, 3016-3 ####[facility] LABCLIA [id number] [facility] [place] [address] [place] [facility] HbA1c (Bld)on 04-04-2023 Average glucose Estimated from glycated hemoglobin (Bld) [Mass/Vol] 100 mg/dL Normal [facility] Comment on above: Order Comment: Speci men Type: BLOOD SPECIMENOrdering Facility: [facility] Address: [address] [place] [address] Result Comment: eAG: (Estimated average glucose) is a calculated value from HgbA1c and is primary care sales representative of the average blood glucose level in the last 2-3 month period. Performed By: #### 5 5454-3 ####[facility] LABCLIA [id number] [place] [address] [place] HbA1c (Bld) [Mass fraction] 5.1 % Normal 4.3-5.6 [facility] Comment on above: Order Comment: Speci men Type: BLOOD SPECIMENOrdering Facility: [facility] Address: [address] [place] [address] Result Comment: [place] Diabetes Association guidelines indicate that patients with HgbA1c in the range 5.7-6.4% are at increased risk for development of diabetes, and intervention by lifestyle modification may be beneficial. HgbA1c greater or equal to 6.5% is considered diagnostic of diabetes. Performed By: #### 5 5454-3 ####[facility] [id number] [place] [address] [place] TSH SerPl-aCncon 04-04-2023 TSH Qn 2.620 m[IU]/L Normal 0.270-4.200 [facility] Comment on above: Order Comment: Speci men Type: BLOOD SPECIMENOrdering Facility: [facility] Address: [address] [place] [address] Performed By: #### 2 143-6, 3016-3 ####[facility] [id number] [address] [place] EDNURSon 03-27-2023 EDNURS Mode of arrival (squ ad #, walk in, police, etc): [facility] Chief complaint(s): Dizziness Arrival Note (brief scenario, treatment MANAGER OF COMPLIANCE, etc): pt had a pacemaker placed at [facility] 11 days ago. Pt got up from the dinner table to put his plate in the sink when he felt dizzy. When pt sat down, it resolved. He got up again with the same dizziness. It went away as he was getting in the vehicle to go to the ER in [place]. Pt denies any other symptoms since. Orthostatics were negative at [facility]. GCS 15 Normal [facility] EDPROVon 03-27-2023 EDPROV HPI Chief Complaint Patient [...] was evaluated in the emergency department at [facility] where full cardiac work-up was performed. Patient was noted to have mild elevation of his troponin. No changes on EKG. Patient was to have pacemaker interrogated by [employer] however primary care sales representative was not available at that [...] 0334 Review of patient's medical records from [place] shows EKG which demonstrates left bundle branch [...] dehydration, or orthostatic [NF] 0417 spoke to [employer] Rep who interrogated device. 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 No signs of any arrhythmias or bradycardic episodes. Device working appropriately. At this time patient's in no acute distress says he feels fine. Troponin was repeated as initial troponin was noted to be mildly elevated. Repeat noted to be 0.07. Will consult cardiology for further recommendations [NF] 0428 Spoke to book or script editor Dr. Roach. Reviewed patient's initial presentation (more content not included)... Normal [facility] Office Visiton 03-27-2023 Follow-up visit [id number] Lyubov Austinqamar Watson 1940 M Date Provider Department Center 03/27/2023 [id number] JAMES CARD [facility] Family History Problem Relation Age of Onset Heart failure Mother Family Status - Relation Status Age at Mother Level of Service:80171 [place] POSTOP FOLLOW UP VISIT RELATED TO ORIGINAL PX Normal [facility] TROPONIN Ion 03-27-2023 Troponin I.cardiac [Mass/Vol] 0.07 ng/mL High 0.00-0.04 [facility] Comment on above: Performed By: #### L [id number] #### [facility] (BEAKER) [address] [place] [address] 30on 03-19-2023 30 The patient is Moderately [...] and behaviors that affect risk of falls Mousie fall precautions as indicated by assessment Educate patient/family on patient safety, including physical limitations Instruct patient to call for assistance with activity based on assessment Modify environment to reduce risk of injury Problem: Discharge Planning Goal: Discharge to home or other facility with appropriate resources Outcome: Progressing Flowsheets (Taken 03/19/2023 09) Discharge to home or other facility with [...] and prevent overall improvement and discharge Normal [facility] 30 Problem: Pain - Adul t Goal: [...] make progress toward the following goals. Normal [facility] BASIC METABOLIC PANELon 06-0 Anion gap [Moles/Vol] 9 mmol/L Normal -20 [facility] Comment on above: Performed By: #### L [id number] #### [facility] ([facility]) [address] [place] [address] Calcium [Mass/Vol] 8.7 mg/dL Normal 8.6-10.3 [facility] Comment on above: Performed By: #### L [id number] #### [facility] ([facility]) [address] [place] [address] Chloride [Moles/Vol] 111 mmol/L High 98-107 [facility] Comment on above: Performed By: #### L [id number] #### [facility] ([facility]) [address] [place] [address] CO2 [Moles/Vol] 24 mmol/L Normal - [facility] Comment on above: Performed By: #### L [id number] #### [facility] ([facility]) [address] [place] [address] Creatinine [Mass/Vol] 1.95 mg/dL High 0.70-1.30 [facility] Comment on above: Performed By: #### L [id number] #### [facility] ([facility]) [address] [facility] [place] [address] GLOMERULAR FILTRATION RATE ML/MIN/1.73 SQ M.PREDICTED 33.5 mL/min/1.73m*2 Low >60.0 [facility] Comment on above: Result Comment: [facility]???s estimated glomerular filtration rate (eGFR) will no [...] individuals. Performed By: #### L [id number] #### [facility] ([facility]) [address] [place] [address] Glucose [Mass/Vol] 111 mg/dL High 70-100 [facility] Comment on above: Performed By: #### L [id number] #### [facility] ([facility]) [address] [place] [address] Potassium [Moles/Vol] 4.2 mmol/L Normal 3.5-5.1 [facility] Comment on above: Performed By: #### L [id number] #### [facility] ([facility]) [address] [facility] [address] Sodium [Moles/Vol] 140 mmol/L Normal 136-145 [facility] Comment on above: Performed By: #### L [id number] #### [facility] ([facility]) [address] [place] [address] Urea nitrogen [Mass/Vol] 36 mg/dL High 7-25 [facility] Comment on above: Performed By: #### L [id number] #### [facility] ([facility]) [address] [address] UREA NITROGEN/CREATININE (MASS RATIO) IN SER/PLAS 18.5 Normal [facility] Comment on above: Performed By: #### L [id number] #### [facility] ([facility]) [address] [place] [address] CBCon 03-19-2023 Erythrocyte distribution width (RBC) [Ratio] 14.8 % Normal 11.5-15.0 [facility] Comment on above: Performed By: #### L [id number] #### [facility] ([facility]) [address] [place] [address] ERYTHROCYTE MEAN CORPUSCULAR HEMOGLOBIN CONCENTRATION (G/DL) BY AUTOMATED 33.9 g/dL Normal 32.0-35.0 [facility] Comment on above: Performed By: #### L [id number] #### [facility] ([facility]) [address] [place] [address] Hematocrit (Bld) [Volume fraction] 34.8 % Low 39.0-55.0 [facility] Comment on above: Performed By: #### L [id number] #### [facility] ([facility]) [address] [place] [address] Hemoglobin (Bld) [Mass/Vol] 11.8 g/dL Low 13.0-17.0 [facility] Comment on above: Performed By: #### L [id number] #### [facility] ([facility]) [address] [place] [address] MCH (RBC) [Entitic mass] 27.9 pg Normal 27.0-33.0 [facility] Comment on above: Performed By: #### L [id number] #### [facility] ([facility]) [address] [place] [address] MCV (RBC) [Entitic vol] 82.3 fL Normal 82.0-98.0 [facility] Comment on above: Performed By: #### L [id number] #### [facility] ([facility]) [address] [address] PLATELETS (10*3/UL) IN BLOOD AUTOMATED COUNT 180 10*3/uL Normal 150-400 [facility] Comment on above: Performed By: #### L [id number] #### [facility] ([facility]) [address] [address] RBC (Bld) [#/Vol] 4.23 10*6/uL Normal 4.20-5.70 [facility] Comment on above: Performed By: #### L [id number] #### [facility] ([facility]) [address] [place] [address] WBC (Bld) [#/Vol] 6.85 10*3/uL Normal 4.00-10.60 [facility] Comment on above: Performed By: #### L [id number] #### [facility] ([facility]) [address] [place] [address] NURSNOTEon 03-19-2023 NURSNOTE Pt discharged home with junior by car. [facility] 30on 03-18-2023 30 Daily Case Managemen t [...] Reason for OT? Answer: weakness 03/18/23 1108 [facility] 30 The patient is Moderately Stable - Low risk of patient condition declining or worsening The patient's goals for the shift include comfort and rest The clinical goals for the shift include monitor vitals [facility] 30 Problem: Pain - Adul t Goal: [...] to make progress toward the following goals. [facility] HPon 03-18-2023 HPI: Juan Jose Austin is [...] Value Ventricular Rate 39 Atrial Rate 39 TX Interval 342 QRS DURATION 156 QT Interval 504 QTC CALCULATION(BAZETT) 405 P Lamont 17 R-Lamont -84 T Wave Lamont 10 Impression Marked sinus bradycardia with 1st degree A-V block Left axis deviation Right bundle branch block Inferior infarct , age undetermined Anterior infarct , age undetermined Abnormal ECG No previous ECGs (more content not included)... Normal [facility] 30on 03-17-2023 30 The patient is Moderately Stable - Low risk of patient condition declining or worsening The patient's goals for the shift include Comfort The clinical goals for the shift include VSS Normal [facility] 30 The patient is Moderately Stable - Low risk of patient condition declining or worsening The patient's goals for the shift include Comfort The clinical goals for the shift include VSS Normal [facility] APTTon 03-17-2023 ACTIVATED PARTIAL THROMBOPLASTIN TIME IN PPP BY COAGULATION ASSAY 26.6 Seconds Normal 25.0-35.0 [facility] Comment on above: Result Comment: Clin ical significance of the APTT is questionable in the presence of heparin. Performed By: #### L [id number] ####[facility] ([facility])[address] [place] [address] B-TYPE NATRIURETIC PEPTIDEon 03-17-2023 Natriuretic peptide B (Bld) [Mass/Vol] 484 pg/mL High 0-100 [facility] Comment on above: Performed By: #### L [id number] #### [facility] ([facility]) [address] [place] [address] CBC WITH AUTO DIFFERENTIALon 03-17-2023 Basophils (Bld) [#/Vol] 0.03 10*3/uL Normal 0.00-0.20 [facility] Comment on above: Performed By: #### L [id number] ####[facility] ([facility])[address] [place] [address] Basophils/100 WBC (Bld) 0.6 % Normal 0.0-1.0 [facility] Comment on above: Performed By: #### L [id number] ####[facility] ([facility])[address] [place] [address] Eosinophils (Bld) [#/Vol] 0.13 10*3/uL Normal 0.00-0.50 [facility] Comment on above: Performed By: #### L [id number] ####[facility] (BEAKER)[address] [place] [address] Eosinophils/100 WBC (Bld) 2.6 % Normal 0.0-6.0 [facility] Comment on above: Performed By: #### L [id number] ####[facility] (BEAKER)[address] [place] [address] Erythrocyte distribution width (RBC) [Ratio] 14.9 % Normal 11.5-15.0 [facility] Comment on above: Performed By: #### L [id number] ####[facility] (BEAKER)[address] [place] [address] ERYTHROCYTE MEAN CORPUSCULAR HEMOGLOBIN CONCENTRATION (G/DL) BY AUTOMATED 32.4 g/dL Normal 32.0-35.0 [facility] Comment on above: Performed By: #### L [id number] ####[facility] ([facility])[address] [place] [address] Hematocrit (Bld) [Volume fraction] 36.4 % Low 39.0-55.0 [facility] Comment on above: Performed By: #### L [id number] ####[facility] (BEAKER)[address] [place] [address] Hemoglobin (Bld) [Mass/Vol] 11.8 g/dL Low 13.0-17.0 [facility] Comment on above: Performed By: #### L [id number] ####[facility] (BEAKER)[address] [place] [address] Immature granulocytes (Bld) [#/Vol] 0.02 10*3/uL Normal 0.00-0.20 [facility] Comment on above: Performed By: #### L [id number] ####[facility] (BEAKER)[address] [place] [address] Immature granulocytes/100 WBC (Bld) 0.4 % Normal 0.0-1.0 [facility] Comment on above: Performed By: #### L [id number] ####[facility] (BEAKER)[address] [place] [address] Lymphocytes (Bld) [#/Vol] 0.72 10*3/uL Low 1.20-4.00 [facility] Comment on above: Performed By: #### L [id number] ####[facility] (BEAKER)[address] [place] [address] Lymphocytes/100 WBC (Bld) 14.6 % Low 20.0-45.0 [facility] Comment on above: Performed By: #### L [id number] ####[facility] (BEAKER)[address] [place] [address] MCH (RBC) [Entitic mass] 27.3 pg Normal 27.0-33.0 [facility] Comment on above: Performed By: #### L [id number] ####[facility] (BEAKER)[address] [place] [address] MCV (RBC) [Entitic vol] 84.1 fL Normal 82.0-98.0 [facility] Comment on above: Performed By: #### L [id number] ####[facility] (BEAKER)[address] [place] [address] Monocytes (Bld) [#/Vol] 0.39 10*3/uL Normal 0.10-1.00 [facility] Comment on above: Performed By: #### L [id number] ####[facility] (BEAKER)[address] [place] [address] Monocytes/100 WBC (Bld) 7.9 % Normal 5.0-12.0 [facility] Comment on above: Performed By: #### L [id number] ####[facility] (BEAKER)[address] [place] [address] Neutrophils (Bld) [#/Vol] 3.65 10*3/uL Normal 1.60-7.60 [facility] Comment on above: Performed By: #### L [id number] ####[facility] (BEAKER)[address] [place] [address] Neutrophils/100 WBC (Bld) 73.9 % High 40.0-72.0 [facility] Comment on above: Performed By: #### L [id number] ####[facility] ([facility])[address] [place] [address] NRBC (PER 100 WBCS) BY AUTOMATED COUNT 0.0 % Normal 0 [facility] Comment on above: Performed By: #### L [id number] ####[facility] ([facility])[address] [place] [address] PLATELETS (10*3/UL) IN BLOOD AUTOMATED COUNT 172 10*3/uL Normal 150-400 [facility] Comment on above: Performed By: #### L [id number] ####[facility] ([facility])[address] [place] [address] RBC (Bld) [#/Vol] 4.33 10*6/uL Normal 4.20-5.70 [facility] Comment on above: Performed By: #### L [id number] ####[facility] ([facility])[address] [place] [address] WBC (Bld) [#/Vol] 4.94 10*3/uL Normal 4.00-10.60 [facility] Comment on above: Performed By: #### L [id number] ####[facility] ([facility])[address] [place] [address] COMPREHENSIVE METABOLIC PANE Taj 03-17-2023 Albumin [Mass/Vol] 4.2 g/dL Normal 3.5-5.7 [facility] Comment on above: Performed By: #### L [id number] #### [facility] ([facility]) [address] [place] [address] ALP [Catalytic activity/Vol] 61 U/L Normal 34-104 [facility] Comment on above: Performed By: #### L [id number] #### [facility] ([facility]) [address] [place] [address] ALT [Catalytic activity/Vol] 14 U/L Normal 7-52 [facility] Comment on above: Performed By: #### L [id number] #### [facility] (BEAKER) [address] [place] [address] Anion gap [Moles/Vol] 14 mmol/L Normal 7-20 [facility] Comment on above: Performed By: #### L [id number] #### [facility] (BEAKER) [address] [place] [address] AST [Catalytic activity/Vol] 17 U/L Normal 13-39 [facility] Comment on above: Performed By: #### L [id number] #### [facility] (BEAKER) [address] [place] [address] Bilirubin [Mass/Vol] 0.6 mg/dL Normal 0.3-1.0 [facility] Comment on above: Performed By: #### L [id number] #### [facility] (BEAKER) [address] [place] [address] Calcium [Mass/Vol] 9.0 mg/dL Normal 8.6-10.3 [facility] Comment on above: Performed By: #### L [id number] #### [facility] (BEAKER) [address] [place] [address] Chloride [Moles/Vol] 108 mmol/L High 98-107 [facility] Comment on above: Performed By: #### L [id number] #### [facility] ([facility]ER) [address] [place] [address] CO2 [Moles/Vol] 20 mmol/L Low 21-31 [facility] Comment on above: Performed By: #### L [id number] #### [facility] ([facility]ER) [address] [place] [address] Creatinine [Mass/Vol] 2.26 mg/dL High 0.70-1.30 [facility] Comment on above: Performed By: #### L [id number] #### [facility] (BE[facility]ER) [address] [place] [address] GLOMERULAR FILTRATION RATE ML/MIN/1.73 SQ M.PREDICTED 28.1 mL/min/1.73m*2 Low >60.0 [facility] Comment on above: Result Comment: [facility]???s estimated glomerular filtration rate (eGFR) will no [...] of individuals. Performed By: #### L [id number] #### [facility] ([facility]) [address] [place] [address] Glucose [Mass/Vol] 158 mg/dL High 70-100 [facility] Comment on above: Performed By: #### L [id number] #### [facility] ([facility]) [address] [place] [address] Potassium [Moles/Vol] 4.2 mmol/L Normal 3.5-5.1 [facility] Comment on above: Performed By: #### L [id number] #### [facility] ([facility]) [address] [place] [address] Protein [Mass/Vol] 6.3 g/dL Normal 6.0-8.3 [facility] Comment on above: Performed By: #### L [id number] #### [facility] ([facility]) [address] [place] [address] Sodium [Moles/Vol] 138 mmol/L Normal 136-145 [facility] Comment on above: Performed By: #### L [id number] #### [facility] ([facility]) [address] [place] [address] Urea nitrogen [Mass/Vol] 42 mg/dL High 7-25 [facility] Comment on above: Performed By: #### L [id number] #### [facility] ([facility]) [address] [place] [address] UREA NITROGEN/CREATININE (MASS RATIO) IN SER/PLAS 18.6 Normal [facility] Comment on above: Performed By: #### L [id number] #### [facility] ([facility]) [address] [place] [address] Albumin [Mass/Vol] 3.8 g/dL Normal 3.5-5.7 [facility] Comment on above: Performed By: #### L [id number] #### [facility] ([facility]) [address] [place] [address] ALP [Catalytic activity/Vol] 58 U/L Normal 34-104 [facility] Comment on above: Performed By: #### L [id number] #### [facility] ([facility]) [address] [place] [address] ALT [Catalytic activity/Vol] 12 U/L Normal 7-52 [facility] Comment on above: Performed By: #### L [id number] #### [facility] ([facility]) [address] [place] [address] Anion gap [Moles/Vol] 10 mmol/L Normal 7-20 [facility] Comment on above: Performed By: #### L [id number] #### [facility] ([facility]) [address] [place] [address] AST [Catalytic activity/Vol] 15 U/L Normal 13-39 [facility] Comment on above: Performed By: #### L [id number] #### [facility] ([facility]) [address] [place] [address] Bilirubin [Mass/Vol] 0.4 mg/dL Normal 0.3-1.0 [facility] Comment on above: Performed By: #### L [id number] #### [facility] ([facility]) [address] [place] [address] Calcium [Mass/Vol] 8.7 mg/dL Normal 8.6-10.3 [facility] Comment on above: Performed By: #### L [id number] #### [facility] ([facility]) [address] [place] [address] Chloride [Moles/Vol] 110 mmol/L High 98-107 [facility] Comment on above: Performed By: #### L [id number] #### [facility] ([facility]) [address] [place] [address] CO2 [Moles/Vol] 24 mmol/L Normal 21-31 [facility] Comment on above: Performed By: #### L [id number] #### [facility] ([facility]) [address] [place] [address] Creatinine [Mass/Vol] 2.26 mg/dL High 0.70-1.30 [facility] Comment on above: Performed By: #### L [id number] #### [facility] ([facility]) [address] [place] [address] GLOMERULAR FILTRATION RATE ML/MIN/1.73 SQ M.PREDICTED 28.1 mL/min/1.73m*2 Low >60.0 [facility] Comment on above: Result Comment: [facility]???s estimated glomerular filtration rate (eGFR) will no [...] of individuals. Performed By: #### L [id number] #### [facility] ([facility]) [address] [place] [address] Glucose [Mass/Vol] 110 mg/dL High 70-100 [facility] Comment on above: Performed By: #### L [id number] #### [facility] ([facility]) [address] [place] [address] Potassium [Moles/Vol] 4.3 mmol/L Normal 3.5-5.1 [facility] Comment on above: Performed By: #### L [id number] #### [facility] ([facility]) [address] [place] [address] Protein [Mass/Vol] 5.4 g/dL Low 6.0-8.3 [facility] Comment on above: Performed By: #### L [id number] #### [facility] ([facility]) [address] [place] [address] Sodium [Moles/Vol] 140 mmol/L Normal 136-145 [facility] Comment on above: Performed By: #### L [id number] #### [facility] ([facility]) [address] [place] [address] Urea nitrogen [Mass/Vol] 40 mg/dL High 7-25 [facility] Comment on above: Performed By: #### L [id number] #### [facility] ([facility]) [address] [place] [address] UREA NITROGEN/CREATININE (MASS RATIO) IN SER/PLAS 17.7 Normal [facility] Comment on above: Performed By: #### L [id number] #### [facility] ([facility]) [address] [place] [address] CONSULTon 03-17-2023 CONSULT -- Attestation signed by [...] ???C (97 (more content not included)... Normal [facility] HEMOGLOBIN A1Con 03-17-2023 Glucose [Mass/Vol] 100 mg/dL Normal [facility] Comment on above: Performed By: #### L [id number] #### [facility] ([facility]) [address] [place] [address] HbA1c (Bld) [Mass fraction] 5.1 % Normal 4.0-6.0 [facility] Comment on above: Performed By: #### L [id number] #### [facility] ([facility]) [address] [place] [address] LACTIC ACID WITH 4 HOUR REFL EXon 03-17-2023 LACTATE (MMOL/L) IN SER/PLAS 0.7 mmol/L Normal 0.5-2.2 [facility] Comment on above: Performed By: #### L [id number] #### [facility] ([facility]) [address] [place] [address] LIPID PANELon 03-17-2023 CHOL/HDL 3.1 mg/dL Normal [facility] Comment on above: Performed By: #### L [id number] #### [facility] ([facility]) [address] [place] [address] Cholesterol [Mass/Vol] 124 mg/dL Normal 120-200 [facility] Comment on above: Performed By: #### L [id number] #### [facility] ([facility]) [address] [place] [address] Magnesium [Mass/Vol] 138 mg/dL Normal 40-149 [facility] Comment on above: Result Comment: TRIG LYCERIDE REFERENCE RANGE: 20 YEARS AND OLDER CARDIOVASCULAR RISK LESS THAN 150 mg/dL LOW RISK 150 TO 199 mg/dL BORDERLINE RISK 200 mg/dL AND GREATER HIGH RISK Performed By: #### L [id number] #### [facility] ([facility]) [address] [place] [address] Magnesium [Mass/Vol] 56 mg/dL Normal 0-160 [facility] Comment on above: Performed By: #### L [id number] #### [facility] ([facility]) [address] [place] [address] Magnesium [Mass/Vol] 40 mg/dL Normal 23-92 [facility] Comment on above: Performed By: #### L [id number] #### [facility] ([facility]) [address] [place] [address] NON HDL CHOL. (LDL+VLDL) 84 Normal [facility] Comment on above: Performed By: #### L [id number] #### [facility] ([facility]) [address] [place] [address] TOTAL VLDL-C 28 mg/dL Normal 0-40 [facility] Comment on above: Performed By: #### L [id number] #### [facility] ([facility]) [address] [place] [address] MAGNESIUMon 03-17-2023 Magnesium [Mass/Vol] 1.7 mg/dL Low 1.9-2.7 [facility] Comment on above: Performed By: #### L [id number] #### [facility] ([facility]) [address] [place] [address] PHOSPHORUSon 03-17-2023 Magnesium [Mass/Vol] 3.7 mg/dL Normal 2.5-5.0 [facility] Comment on above: Performed By: #### L [id number] #### [facility] ([facility]) [address] [place] [address] PROTIME-INRon 03-17-2023 INR IN PPP BY COAGULATION ASSAY 1.07 Normal 0.90-1.10 [facility] Comment on above: Result Comment: ACCC P [...] RANGE. CHEST 1995;108:231S-246S. Performed By: #### L [id number] #### [facility] ([facility]) [address] [place] [address] PROTHROMBIN TIME (PT) IN PPP BY COAGULATION ASSAY 13.9 Seconds Normal 12.3-14.8 [facility] Comment on above: Performed By: #### L [id number] #### [facility] ([facility]) [address] [place] [address] TROPONIN Ion 03-17-2023 Troponin I.cardiac [Mass/Vol] 0.06 ng/mL High 0.00-0.04 [facility] Comment on above: Performed By: #### L [id number] #### [facility] ([facility]) [address] [place] [address] Troponin I.cardiac [Mass/Vol] 0.06 ng/mL High 0.00-0.04 [facility] Comment on above: Performed By: #### L [id number] #### [facility] ([facility]) [address] [place] [address] Troponin I.cardiac [Mass/Vol] 0.05 ng/mL High 0.00-0.04 [facility] Comment on above: Performed By: #### L [id number] #### [facility] ([facility]) [address] [place] [address] TSH3 REFLEX TO FT4on 023 THYROTROPIN (MIU/L) IN SER/PLAS BY DETECTION LIMIT <= 0.05 MIU/L 2.52 mIU/L Normal 0.34-5.60 [facility] Comment on above: Performed By: #### L [id number] ####[facility] ([facility])[address] [place] [address] Office Visiton 03-15-2023 Follow-up visit [id number] Juan Jose Austin 1940 M Date Provider Department Center 03/15/2023 JONATHAN BERKOWITZ CARD [facility] Family History Problem Relation Age of Onset Heart failure Mother Family Status - Relation Status Age at Mother Level of Service:01908 [place] OFFICE/OUTPATIENT ESTABLISHED MOD MDM 30-39 MIN Normal [facility] BNPon 03-10-2023 Natriuretic peptide B (Bld) [Mass/Vol] 1490.0 pg/mL Normal <=1,800.0 [facility] Comment on above: Performed By: #### C K, HSTROPN, CMP, BNP #### [facility] [address] [place] [address] Dr. Tan Oliveros CBC AUTO DIFFon 03-10-2023 BASO # 0.1 103/ul Normal 0.0-0.1 [facility] Comment on above: Performed By: #### C K, HSTROPN, CMP, BNP #### [facility] [address] [address] [address] Tan Oliveros Basophils/100 WBC (Bld) 0.9 % Normal 0.2-2.0 [facility] Comment on above: Performed By: #### C K, HSTROPN, CMP, BNP #### [facility] [address] [place] [address] Dr. Tan Oliveros EO # 0.1 103/ul Normal 0.0-0.7 [facility] Comment on above: Performed By: #### C K, HSTROPN, CMP, BNP #### [facility] [address] [place] [address] Dr. Tan Oliveros Eosinophils/100 WBC (Bld) 1.6 % Normal 0.9-7.0 [facility] Comment on above: Performed By: #### C K, HSTROPN, CMP, BNP #### [facility] [address] [place] [address] Dr. Tan Oliveros Erythrocyte distribution width (RBC) [Ratio] 14.7 % Normal 11.0-15.0 [facility] Comment on above: Performed By: #### C K, HSTROPN, CMP, BNP #### [facility] [address] [place] [address] Dr. Tan Oliveros Hematocrit (Bld) [Volume fraction] 38.9 % Critically low 42.0-54.0 [facility] Comment on above: Performed By: #### C K, HSTROPN, CMP, BNP #### [facility] [address] [place] [address] Dr. Tan Oliveros Hemoglobin (Bld) [Mass/Vol] 12.8 g/dL Critically low 14.0-18.0 [facility] Comment on above: Performed By: #### C K, HSTROPN, CMP, BNP #### [facility] [address] [place] [address] Dr. Tan Oliveros IG # 0.02 10e3/ul Normal 0.00-0.03 [facility] Comment on above: Performed By: #### C K, HSTROPN, CMP, BNP #### [facility] [address] [place] [address] Dr. Tan Oliveros IG % 0.3 % Normal 0.0-0.5 [facility] Comment on above: Performed By: #### C K, HSTROPN, CMP, BNP #### [facility] [address] [place] [address] Dr. Tan Oliveros LYMPH # 0.7 103/ul Critically low 1.2-3.8 [facility] Comment on above: Performed By: #### C K, HSTROPN, CMP, BNP #### [facility] [address] [address] [address] Tan Oliveros Lymphocytes/100 WBC (Bld) 10.4 % Critically low 20.5-60.0 [facility] Comment on above: Performed By: #### C K, HSTROPN, CMP, BNP #### [facility] [address] [place] [address] Dr. Tan Oliveros MANUAL DIFF REQ NO Normal [facility] Comment on above: Performed By: #### C K, HSTROPN, CMP, BNP #### [facility] [address] [place] [address] Dr. Tan Oliveros MCH (RBC) [Entitic mass] 27.2 pg Normal 25.9-34.0 [facility] Comment on above: Performed By: #### C K, HSTROPN, CMP, BNP #### [facility] [address] [place] [address] Dr. Tan Oliveros MCHC (RBC) [Mass/Vol] 32.9 g/dL Normal 29.9-35.2 [facility] Comment on above: Performed By: #### C K, HSTROPN, CMP, BNP #### [facility] [address] [place] [address] Dr. Tan Oliveros MCV (RBC) [Entitic vol] 82.8 fL Normal 80.0-94.0 [facility] Comment on above: Performed By: #### C K, HSTROPN, CMP, BNP #### [facility] [address] [place] [address] Dr. Tan Oliveros MONO # 0.4 103/ul Normal 0.3-0.8 [facility] Comment on above: Performed By: #### C K, HSTROPN, CMP, BNP #### [facility] [address] [place] [address] Dr. Tan Oliveros Monocytes/100 WBC (Bld) 5.8 % Normal 1.7-12.0 [facility] Comment on above: Performed By: #### C K, HSTROPN, CMP, BNP #### [facility] [address] [place] [address] Dr. Tan Oliveros NEUT # 5.2 103/ul Normal 1.4-6.5 [facility] Comment on above: Performed By: #### C K, HSTROPN, CMP, BNP #### [facility] [address] [place] [address] Dr. Tan Oliveros Neutrophils/100 WBC (Bld) 81.0 % Critically high 43.0-75.0 [facility] Comment on above: Performed By: #### C K, HSTROPN, CMP, BNP #### [facility] [address] [place] [address] Dr. Tan Oliveros Platelet mean volume (Bld) [Entitic vol] 9.9 fL Normal 9.5-13.5 [facility] Comment on above: Performed By: #### C K, HSTROPN, CMP, BNP #### [facility] [address] [place] [address] Dr. Tan Oliveros PLT 198 103/ul Normal 150-450 [facility] Comment on above: Performed By: #### C K, HSTROPN, CMP, BNP #### [facility] [address] [place] [address] Dr. Tan Oliveros RBC 4.70 106/ul Normal 4.70-6.10 [facility] Comment on above: Performed By: #### C K, HSTROPN, CMP, BNP #### [facility] [address] [place] [address] Dr. Tan Oliveros WBC 6.4 103/ul Normal 4.0-11.0 [facility] Comment on above: Performed By: #### C K, HSTROPN, CMP, BNP #### [facility] [address] [place] [address] Dr. Tan Oliveros CPKon 03-10-2023 CK [Catalytic activity/Vol] 152 U/L Normal 39-308 [facility] Comment on above: Performed By: #### C K, HSTROPN, CMP, BNP #### [facility] [address] [place] [address] Dr. Tan Oliveros PROF 14(COMP METB)on 023 Albumin [Mass/Vol] 3.5 g/dL Normal 3.4-5.0 [facility] Comment on above: Performed By: #### C K, HSTROPN, CMP, BNP #### [facility] [address] [place] [address] Dr. Tan Oliveros Albumin/Globulin [Mass ratio] 1.2 {ratio} Normal [facility] Comment on above: Performed By: #### C K, HSTROPN, CMP, BNP #### [facility] [address] [place] [address] Dr. Tan Oliveros ALP [Catalytic activity/Vol] 69 U/L Normal 46-116 [facility] Comment on above: Performed By: #### C K, HSTROPN, CMP, BNP #### [facility] [address] [place] [address] Dr. Tan Oliveros ALT [Catalytic activity/Vol] 21 U/L Normal 16-63 [facility] Comment on above: Performed By: #### C K, HSTROPN, CMP, BNP #### [facility] [address] [place] [address] Dr. Tan Oliveros Anion gap [Moles/Vol] 14.6 mmol/L Normal [facility] Comment on above: Performed By: #### C K, HSTROPN, CMP, BNP #### [facility] [address] [place] [address] Dr. Tan Oliveros AST [Catalytic activity/Vol] 21 U/L Normal 15-37 [facility] Comment on above: Performed By: #### C K, HSTROPN, CMP, BNP #### [facility] [address] [place] [address] Dr. Tan Oliveros Bilirubin [Mass/Vol] 0.5 mg/dL Normal 0.2-1.0 [facility] Comment on above: Performed By: #### C K, HSTROPN, CMP, BNP #### [facility] [address] [place] [address] Dr. Tan Oliveros Calcium [Mass/Vol] 8.7 mg/dL Normal 8.5-10.1 [facility] Comment on above: Performed By: #### C K, HSTROPN, CMP, BNP #### [facility] [address] [place] [address] Dr. Tan Oliveros Chloride [Moles/Vol] 107 mmol/L Normal 98-107 [facility] Comment on above: Performed By: #### C K, HSTROPN, CMP, BNP #### [facility] [address] [place] [address] Dr. Tan Oliveros CO2 [Moles/Vol] 23.1 mmol/L Normal 21.0-32.0 [facility] Comment on above: Performed By: #### C K, HSTROPN, CMP, BNP #### [facility] [address] [place] [address] Dr. Tan Oliveros Creatinine [Mass/Vol] 2.31 mg/dL Critically high 0.70-1.30 [facility] Comment on above: Performed By: #### C K, HSTROPN, CMP, BNP #### [facility] [address] [place] [address] Dr. Tan Oliveros EGFR-AF FILIPINO 33 mL/min/1.73m2 Critically low >=60 [facility] Comment on above: Performed By: #### C K, HSTROPN, CMP, BNP #### [facility] [address] [place] [address] Dr. Tan Oliveros EGFR-NON AF FILIPINO 27 mL/min/1.73m2 Critically low >=60 [facility] Comment on above: Performed By: #### C K, HSTROPN, CMP, BNP #### [facility] [address] [place] [address] Dr. Tan Oliveros Globulin (S) [Mass/Vol] 2.8 g/dL Normal [facility] Comment on above: Performed By: #### C K, HSTROPN, CMP, BNP #### [facility] [address] [address] [address] Tan Oliveros Glucose [Mass/Vol] 123 mg/dL Critically high 74-106 [facility] Comment on above: Performed By: #### C K, HSTROPN, CMP, BNP #### [facility] [address] [place] [address] Dr. Tan Oliveros Potassium [Moles/Vol] 4.7 mmol/L Normal 3.5-5.1 [facility] Comment on above: Performed By: #### C K, HSTROPN, CMP, BNP #### [facility] [address] [address] [address] Tan Oliveros Protein [Mass/Vol] 6.3 g/dL Critically low 6.4-8.2 [facility] Comment on above: Performed By: #### C K, HSTROPN, CMP, BNP #### [facility] [address] [place] [address] Dr. Tan Oliveros Sodium [Moles/Vol] 140 mmol/L Normal 136-145 [facility] Comment on above: Performed By: #### C K, HSTROPN, CMP, BNP #### [facility] [address] [place] [address] Dr. Tan Oliveros Urea nitrogen [Mass/Vol] 39.0 mg/dL Critically high 7.0-18.0 [facility] Comment on above: Performed By: #### C K, HSTROPN, CMP, BNP #### [facility] [address] [place] [address] Dr. Tan Oliveros Urea nitrogen/Creatinine [Mass ratio] 16.9 mg/mg Normal [facility] Comment on above: Performed By: #### C K, HSTROPN, CMP, BNP #### [facility] [address] [place] [address] Dr. Tan Oliveros TROPONIN, HIGH SENSITIVITYon 03-10-2023 HSTROP 44.5 pg/mL Normal 4.0-76.1 [facility] Comment on above: Result Comment: CUT- OFF POINTS HAVE BEEN ESTABLISHED BASED ON THE FOURTH UNIVERSAL DEFINITIONS OF MYOCARDIAL INFARCTION. THE UPPER REFERENCE LIMIT (URL) OF TROPONIN, DEFINED THE 99TH PERCENTILE OF cTnI DISTRIBUTION IN A REFERENCE POPULATION, HAS BEEN CONFIRMED THE DECISION THRESHOLD FOR [place] DIAGNOSIS. Performed By: #### C K, HSTROPN, CMP, BNP #### [facility] [address] [place], [place] [address] Dr. Tan Oliveros XR CHEST 2 Von [...] by: MIKE MARTÍNEZ Date: 2023-03-10 11:51 Normal [facility] CNOVSPon 03-07-2023 CNOVSP Normal [facility] CNPNon 03-07-2023 CNPN Normal [facility] Comprehensive metabolic 2000 panelon 03-07-2023 Albumin [Mass/Vol] 4.4 g/dL Normal 3.9-4.9 [facility] Comment on above: Order Comment: Speci men Type: BLOOD SPECIMENOrdering Facility: [facility] Address: [address] [address] Performed By: #### 2 4323-8 ####[facility] LABCLIA [id number] [place] [address] ALP [Catalytic activity/Vol] 76 U/L Normal 38-113 [facility] Comment on above: Order Comment: Speci men Type: BLOOD SPECIMENOrdering Facility: [facility] Address: [address] [address] Performed By: #### 2 4323-8 ####[facility] LABCLIA [id number] [place] [address] ALT [Catalytic activity/Vol] 14 U/L Normal 10-54 [facility] Comment on above: Order Comment: Speci men Type: BLOOD SPECIMENOrdering Facility: [facility] Address: [address] [address] Performed By: #### 2 4323-8 ####[facility] LABCLIA [id number] [place] [address] Anion gap [Moles/Vol] 10 mmol/L Normal 9-18 [facility] Comment on above: Order Comment: Speci men Type: BLOOD SPECIMENOrdering Facility: [facility] Address: [address] [place] [address] Performed By: #### 2 4323-8 ####[facility] LABCLIA [id number] [place] [address] AST [Catalytic activity/Vol] 21 U/L Normal 14-40 [facility] Comment on above: Order Comment: Speci men Type: BLOOD SPECIMENOrdering Facility: [facility] Address: [address] [place] [address] Performed By: #### 2 4323-8 ####[facility] LABCLIA [id number] [place] [address] Bilirubin [Mass/Vol] 0.5 mg/dL Normal 0.2-1.3 [facility] Comment on above: Order Comment: Speci men Type: BLOOD SPECIMENOrdering Facility: [facility] Address: [address] [address] Performed By: #### 2 4323-8 ####[facility] LABCLIA [id number] [place] [address] Calcium [Mass/Vol] 9.6 mg/dL Normal 8.5-10.2 [facility] Comment on above: Order Comment: Speci men Type: BLOOD SPECIMENOrdering Facility: [facility] Address: [address] [address] Performed By: #### 2 4323-8 ####[facility] LABCLIA [id number] [place] [address] Chloride [Moles/Vol] 107 mmol/L High 97-105 [facility] Comment on above: Order Comment: Speci men Type: BLOOD SPECIMENOrdering Facility: [facility] Address: [address] [place] [address] Performed By: #### 2 4323-8 ####[facility] LABCLIA [id number] [place] [address] CO2 [Moles/Vol] 24 mmol/L Normal 22-30 [facility] Comment on above: Order Comment: Speci men Type: BLOOD SPECIMENOrdering Facility: [facility] Address: [address] [place] [address] Performed By: #### 2 4323-8 ####[facility] LABCLIA [id number] [place] [address] Creatinine [Mass/Vol] 2.28 mg/dL High 0.73-1.22 [facility] Comment on above: Order Comment: Speci men Type: BLOOD SPECIMENOrdering Facility: [facility] Address: [address] [place] [address] Performed By: #### 2 4323-8 ####[facility] LABCLIA [id number] [place] [address] ESTIMATED GLOMERULAR FILTRATION RATE 28 mL/min/1.73m??? Low >=60 [facility] Comment on above: Order Comment: Speci men Type: BLOOD SPECIMENOrdering Facility: [facility] Address: [address] [place] [address] Result Comment: Viviana mated Glomerular Filtration Rate [...] actual GFR. Performed By: #### 2 4323-8 ####[facility] LABCLIA [id number] [place] [address] Glucose [Mass/Vol] 118 mg/dL High 74-99 [facility] Comment on above: Order Comment: Speci men Type: BLOOD SPECIMENOrdering Facility: [facility] Address: [address] [place] [address] Result Comment: The [place] Diabetes Association (ADA) provides guidance for cutoff [...] Standards of Medical Care in Diabetes 2016, [place] [employer]. Diabetes Care. 2016.39(Suppl 1). Performed By: #### 2 4323-8 ####[facility] LABCLIA [id number] [place] [address] Potassium [Moles/Vol] 4.2 mmol/L Normal 3.7-5.1 [facility] Comment on above: Order Comment: Speci men Type: BLOOD SPECIMENOrdering Facility: [facility] Address: [address] [place] [address] Performed By: #### 2 4323-8 ####[facility] LABCLIA [id number] [place] [address] Protein [Mass/Vol] 6.2 g/dL Low 6.3-8.0 [facility] Comment on above: Order Comment: Speci men Type: BLOOD SPECIMENOrdering Facility: [facility] Address: [address] [place] [address] Performed By: #### 2 4323-8 ####[facility] LABCLIA [id number] [place] [address] Sodium [Moles/Vol] 141 mmol/L Normal 136-144 [facility] Comment on above: Order Comment: Speci men Type: BLOOD SPECIMENOrdering Facility: [facility] Address: [address] [place] [address] Performed By: #### 2 4323-8 ####[facility] LABCLIA [id number] [place] [address] Urea nitrogen [Mass/Vol] 42 mg/dL High 9-24 [facility] Comment on above: Order Comment: Speci men Type: BLOOD SPECIMENOrdering Facility: [facility] Address: [address] [place] [address] Performed By: #### 2 4323-8 ####[facility] LABCLIA [id number] [place] [id number] CBC W Auto Differential pane l (Bld)on 02-21-2023 Basophils (Bld) [#/Vol] 0.05 10*3/uL Normal <0.11 [facility] Comment on above: Order Comment: Speci men Type: BLOOD SPECIMENOrdering Facility: [facility] Address: [address] [place] [address] Performed By: #### 5 7021-8 ####[facility] LABIA [id number] [place] [id number] Basophils/100 WBC (Bld) 0.8 % Normal [facility] Comment on above: Order Comment: Speci men Type: BLOOD SPECIMENOrdering Facility: [facility] Address: [address] [place] [address] Performed By: #### 5 7021-8 ####[facility] LABCLIA [id number] [place] [address] Differential cell count method Nom (Bld) Auto Normal [facility] Comment on above: Order Comment: Speci men Type: BLOOD SPECIMENOrdering Facility: [facility] Address: [address] [place] [address] Performed By: #### 5 7021-8 ####[facility] LABCLIA [id number] [place] [address] Eosinophils (Bld) [#/Vol] 0.24 10*3/uL Normal <0.46 [facility] Comment on above: Order Comment: Speci men Type: BLOOD SPECIMENOrdering Facility: [facility] Address: [address] [place] [address] Performed By: #### 5 7021-8 ####[facility] LABCLIA [id number] [place] [address] Eosinophils/100 WBC (Bld) 3.9 % Normal [facility] Comment on above: Order Comment: Speci men Type: BLOOD SPECIMENOrdering Facility: [facility] Address: [address] [place] [address] Performed By: #### 5 7021-8 ####[facility] LABCLIA [id number] [place] [address] Erythrocyte distribution width (RBC) [Ratio] 14.6 % Normal 11.5-15.0 [facility] Comment on above: Order Comment: Speci men Type: BLOOD SPECIMENOrdering Facility: [facility] Address: [address] [place] [address] Performed By: #### 5 7021-8 ####[facility] LABCLIA [id number] [place] [address] Hematocrit (Bld) [Volume fraction] 39.4 % Normal 39.0-51.0 [facility] Comment on above: Order Comment: Speci men Type: BLOOD SPECIMENOrdering Facility: [facility] Address: [address] [place] [address] Performed By: #### 5 7021-8 ####[facility] LABCLIA [id number] [place] [address] Hemoglobin (Bld) [Mass/Vol] 12.7 g/dL Low 13.0-17.0 [facility] Comment on above: Order Comment: Speci men Type: BLOOD SPECIMENOrdering Facility: [facility] Address: [address] [address] Performed By: #### 5 7021-8 ####[facility] LABCLIA [id number] [place] [address] Immature granulocytes (Bld) [#/Vol] 0.03 10*3/uL Normal <0.10 [facility] Comment on above: Order Comment: Speci men Type: BLOOD SPECIMENOrdering Facility: [facility] Address: [address] [address] Performed By: #### 5 7021-8 ####[facility] LABCLIA [id number] [place] [address] Immature granulocytes/100 WBC (Bld) 0.5 % Normal [facility] Comment on above: Order Comment: Speci men Type: BLOOD SPECIMENOrdering Facility: [facility] Address: [address] [place] [address] Performed By: #### 5 7021-8 ####[facility] LABCLIA [id number] [place] [address] Lymphocytes (Bld) [#/Vol] 0.81 10*3/uL Low 1.00-4.00 [facility] Comment on above: Order Comment: Speci men Type: BLOOD SPECIMENOrdering Facility: [facility] Address: [address] [place] [address] Performed By: #### 5 7021-8 ####[facility] LABCLIA [id number] [place] [address] Lymphocytes/100 WBC (Bld) 13.2 % Normal [facility] Comment on above: Order Comment: Speci men Type: BLOOD SPECIMENOrdering Facility: [facility] Address: [address] [place] [address] Performed By: #### 5 7021-8 ####[facility] LABCLIA [id number] [place] [address] MCH (RBC) [Entitic mass] 27.0 pg Normal 26.0-34.0 [facility] Comment on above: Order Comment: Speci men Type: BLOOD SPECIMENOrdering Facility: [facility] Address: [address] [place] [address] Performed By: #### 5 7021-8 ####[facility] LABCLIA [id number] [place] [address] MCHC (RBC) [Mass/Vol] 32.2 g/dL Normal 30.5-36.0 [facility] Comment on above: Order Comment: Speci men Type: BLOOD SPECIMENOrdering Facility: [facility] Address: [address] [place] [address] Performed By: #### 5 7021-8 ####[facility] LABIA [id number] [place] [address] MCV (RBC) [Entitic vol] 83.8 fL Normal 80.0-100.0 [facility] Comment on above: Order Comment: Speci men Type: BLOOD SPECIMENOrdering Facility: [facility] Address: [address] [place] [address] Performed By: #### 5 7021-8 ####[facility] LABIA [id number] [place] [address] Monocytes (Bld) [#/Vol] 0.47 10*3/uL Normal <0.87 [facility] Comment on above: Order Comment: Speci men Type: BLOOD SPECIMENOrdering Facility: [facility] Address: [address] [place] [address] Performed By: #### 5 7021-8 ####[facility] LABIA [id number] [place] [address] Monocytes/100 WBC (Bld) 7.7 % Normal [facility] Comment on above: Order Comment: Speci men Type: BLOOD SPECIMENOrdering Facility: [facility] Address: [address] [place] [address] Performed By: #### 5 7021-8 ####[facility] LABCLIA [id number] [place] [address] Neutrophils (Bld) [#/Vol] 4.54 10*3/uL Normal 1.45-7.50 [facility] Comment on above: Order Comment: Speci men Type: BLOOD SPECIMENOrdering Facility: [facility] Address: [address] [place] [address] Performed By: #### 5 7021-8 ####[facility] LABCLIA [id number] [place] [address] Neutrophils/100 WBC (Bld) 73.9 % Normal [facility] Comment on above: Order Comment: Speci men Type: BLOOD SPECIMENOrdering Facility: [facility] Address: [address] [place] [address] Performed By: #### 5 7021-8 ####[facility] LABCLIA [id number] [place] [address] Nucleated RBC (Bld) [#/Vol] 10*3/uL Normal <0.01 [facility] Comment on above: Order Comment: Speci men Type: BLOOD SPECIMENOrdering Facility: [facility] Address: [address] [place] [address] Performed By: #### 5 7021-8 ####[facility] LABCLIA [id number] [place] [address] Nucleated RBC/100 WBC (Bld) [Ratio] 0.0 /100 WBC Normal [facility] Comment on above: Order Comment: Speci men Type: BLOOD SPECIMENOrdering Facility: [facility] Address: [address] [place] [address] Performed By: #### 5 7021-8 ####[facility] LABCLIA [id number] [place] [address] Platelet mean volume (Bld) [Entitic vol] 9.3 fL Normal 9.0-12.7 [facility] Comment on above: Order Comment: Speci men Type: BLOOD SPECIMENOrdering Facility: [facility] Address: [address] [place] [address] Performed By: #### 5 7021-8 ####[facility] LABIA [id number] [place] [address] Platelets (Bld) [#/Vol] 208 10*3/uL Normal 150-400 [facility] Comment on above: Order Comment: Speci men Type: BLOOD SPECIMENOrdering Facility: [facility] Address: [address] [place] [address] Performed By: #### 5 7021-8 ####[facility] LABIA [id number] [place] [address] RBC (Bld) [#/Vol] 4.70 10*6/uL Normal 4.20-6.00 [facility] Comment on above: Order Comment: Speci men Type: BLOOD SPECIMENOrdering Facility: [facility] Address: [address] [place] [address] Performed By: #### 5 7021-8 ####[facility] LABIA [id number] [place] [address] WBC (Bld) [#/Vol] 6.14 10*3/uL Normal 3.70-11.00 [facility] Comment on above: Order Comment: Speci men Type: BLOOD SPECIMENOrdering Facility: [facility] Address: [address] [place] [address] Performed By: #### 5 7021-8 ####[facility] LABIA [id number] [place] [address] CNOVSPon 02-21-2023 CNOVSP Normal [facility] CNPNon 02-21-2023 CNPN Normal [facility] Comprehensive metabolic 2000 panelon 02-21-2023 Albumin [Mass/Vol] 4.4 g/dL Normal 3.9-4.9 [facility] Comment on above: Order Comment: Speci men Type: BLOOD SPECIMENOrdering Facility: [facility] Address: [address] [address] Performed By: #### 2 4323-8 ####[facility] LABCLIA [id number] [place] [address] ALP [Catalytic activity/Vol] 79 U/L Normal 38-113 [facility] Comment on above: Order Comment: Speci men Type: BLOOD SPECIMENOrdering Facility: [facility] Address: [address] [address] Performed By: #### 2 4323-8 ####[facility] LABCLIA [id number] [place] [address] ALT [Catalytic activity/Vol] 14 U/L Normal 10-54 [facility] Comment on above: Order Comment: Speci men Type: BLOOD SPECIMENOrdering Facility: [facility] Address: [address] [address] Performed By: #### 2 4323-8 ####[facility] LABCLIA [id number] [place] [address] Anion gap [Moles/Vol] 12 mmol/L Normal 9-18 [facility] Comment on above: Order Comment: Speci men Type: BLOOD SPECIMENOrdering Facility: [facility] Address: [address] [address] Performed By: #### 2 4323-8 ####[facility] LABCLIA [id number] [place] [address] AST [Catalytic activity/Vol] 24 U/L Normal 14-40 [facility] Comment on above: Order Comment: Speci men Type: BLOOD SPECIMENOrdering Facility: [facility] Address: [address] [place] [address] Performed By: #### 2 4323-8 ####[facility] LABCLIA [id number] [place] [address] Bilirubin [Mass/Vol] 0.5 mg/dL Normal 0.2-1.3 [facility] Comment on above: Order Comment: Speci men Type: BLOOD SPECIMENOrdering Facility: [facility] Address: [address] [address] Performed By: #### 2 4323-8 ####[facility] LABCLIA [id number] [place] [address] Calcium [Mass/Vol] 9.2 mg/dL Normal 8.5-10.2 [facility] Comment on above: Order Comment: Speci men Type: BLOOD SPECIMENOrdering Facility: [facility] Address: [address] [place] [address] Performed By: #### 2 4323-8 ####[facility] LABCLIA [id number] [place] [address] Chloride [Moles/Vol] 105 mmol/L Normal 97-105 [facility] Comment on above: Order Comment: Speci men Type: BLOOD SPECIMENOrdering Facility: [facility] Address: [address] [address] Performed By: #### 2 4323-8 ####[facility] LABCLIA [id number] [place] [address] CO2 [Moles/Vol] 25 mmol/L Normal 22-30 [facility] Comment on above: Order Comment: Speci men Type: BLOOD SPECIMENOrdering Facility: [facility] Address: [address] [address] Performed By: #### 2 4323-8 ####[facility] LABCLIA [id number] [place] [address] Creatinine [Mass/Vol] 2.23 mg/dL High 0.73-1.22 [facility] Comment on above: Order Comment: Speci men Type: BLOOD SPECIMENOrdering Facility: [facility] Address: [address] [place] [address] Performed By: #### 2 4323-8 ####[facility] LABCLIA [id number] [place] [address] ESTIMATED GLOMERULAR FILTRATION RATE 29 mL/min/1.73m??? Low >=60 [facility] Comment on above: Order Comment: Vero barton Type: BLOOD SPECIMENOrdering Facility: [facility] Address: [address] [place] [address] Result Comment: Viviana mated Glomerular Filtration Rate [...] actual GFR. Performed By: #### 2 4323-8 ####[facility] LABCLIA [id number] [place] [address] Glucose [Mass/Vol] 117 mg/dL High 74-99 [facility] Comment on above: Order Comment: Vero barton Type: BLOOD SPECIMENOrdering Facility: [facility] Address: [address] [place] [address] Result Comment: The [place] [employer] (ADA) provides guidance for cutoff [...] Standards of Medical Care in Diabetes 2016, [place] [employer]. Diabetes Care. 2016.39(Suppl 1). Performed By: #### 2 4323-8 ####[facility] LABCLIA [id number] [place] [address] Potassium [Moles/Vol] 4.9 mmol/L Normal 3.7-5.1 [facility] Comment on above: Order Comment: Speci men Type: BLOOD SPECIMENOrdering Facility: [facility] Address: [address] [place] [address] Performed By: #### 2 4323-8 ####[facility] LABCLIA [id number] [place] [address] Protein [Mass/Vol] 6.4 g/dL Normal 6.3-8.0 [facility] Comment on above: Order Comment: Speci men Type: BLOOD SPECIMENOrdering Facility: [facility] Address: [address] [place] [address] Performed By: #### 2 4323-8 ####[facility] LABCLIA [id number] [place] [address] Sodium [Moles/Vol] 142 mmol/L Normal 136-144 [facility] Comment on above: Order Comment: Speci men Type: BLOOD SPECIMENOrdering Facility: [facility] Address: [address] [place] [address] Performed By: #### 2 4323-8 ####[facility] LABCLIA [id number] [place] [address] Urea nitrogen [Mass/Vol] 36 mg/dL High 9-24 [facility] Comment on above: Order Comment: Speci men Type: BLOOD SPECIMENOrdering Facility: [facility] Address: [address] [place] [address] Performed By: #### 2 4323-8 ####[facility] LABCLIA [id number] [place] [address] Cortis Keisha-Ricaon 02-22-20 Cortisol [Mass/Vol] 11.2 ug/dL Normal 4.8-19.5 [facility] Comment on above: Order Comment: Speci men Type: BLOOD SPECIMENOrdering Facility: [facility] Address: [address] [place] [address] Result Comment: Prov ided reference range is from 6-10 AM sample collection time.Cortisol Reference Range: 6-10 AM = 4.8-19.5 ug/dL, 4-8 PM = 2.5-11.9 ug/dL Performed By: #### 2 143-6, 3016-3 ####[facility] LABCLIA [id number] [address] HbA1c (Bld)on 02-21-2023 Average glucose Estimated from glycated hemoglobin (Bld) [Mass/Vol] 103 mg/dL Normal [facility] Comment on above: Order Comment: Vero barton Type: BLOOD SPECIMENOrdering Facility: [facility] Address: [address] [place] [address] Result Comment: eAG: (Estimated average glucose) is a calculated value from HgbA1c and is primary care sales representative of the average blood glucose level in the last 2-3 month period. Performed By: #### 5 5454-3 ####[facility] LABIA [id number] [address] HbA1c (Bld) [Mass fraction] 5.2 % Normal 4.3-5.6 [facility] Comment on above: Order Comment: Vero barton Type: BLOOD SPECIMENOrdering Facility: [facility] Address: [address] [place] [address] Result Comment: [place] Diabetes Association guidelines indicate that patients with HgbA1c in the range 5.7-6.4% are at increased risk for development of diabetes, and intervention by lifestyle modification may be beneficial. HgbA1c greater or equal to 6.5% is considered diagnostic of diabetes. Performed By: #### 5 5454-3 ####[facility] LABIA [id number] [address] OF [place] TSH SerPl-aCncon 02-21-2023 TSH Qn 3.220 m[IU]/L Normal 0.270-4.200 [facility] Comment on above: Order Comment: Vero barton Type: BLOOD SPECIMENOrdering Facility: [facility] Address: [address] [address] Performed By: #### 2 143-6, 3016-3 ####[facility] LABCLIA [id number] MALLORYMarisabel [facility] [id number] [address] [place] CNOVSPon 01-31-2023 CNOVSP Normal [facility] CNPNon 01-31-2023 CNPN Normal [facility] Consultation Noteon 02-01-20 Consultation Note [id number] 0CD:[id number] [facility] CBC W Auto Differential pane l (Bld)on 01-23-2023 Basophils (Bld) [#/Vol] 0.06 10*3/uL Normal <0.11 [facility] Comment on above: Order Comment: Speci men Type: BLOOD SPECIMENOrdering Facility: [facility] Address: [address] [address] Performed By: #### 5 7021-8 ####[facility] LABCLIA [id number] [place] [address] Basophils/100 WBC (Bld) 1.0 % Normal [facility] Comment on above: Order Comment: Speci men Type: BLOOD SPECIMENOrdering Facility: [facility] Address: [address] [address] Performed By: #### 5 7021-8 ####[facility] LABCLIA [id number] [place] [address] Differential cell count method Nom (Bld) Auto Normal [facility] Comment on above: Order Comment: Speci men Type: BLOOD SPECIMENOrdering Facility: [facility] Address: [address] [address] Performed By: #### 5 7021-8 ####[facility] LABCLIA [id number] [place] [address] Eosinophils (Bld) [#/Vol] 0.23 10*3/uL Normal <0.46 [facility] Comment on above: Order Comment: Speci men Type: BLOOD SPECIMENOrdering Facility: [facility] Address: [address] [place] [address] Performed By: #### 5 7021-8 ####[facility] LABCLIA [id number] [place] [address] Eosinophils/100 WBC (Bld) 3.7 % Normal [facility] Comment on above: Order Comment: Speci men Type: BLOOD SPECIMENOrdering Facility: [facility] Address: [address] [place] [address] Performed By: #### 5 7021-8 ####[facility] LABIA [id number] [place] [address] Erythrocyte distribution width (RBC) [Ratio] 15.1 % High 11.5-15.0 [facility] Comment on above: Order Comment: Speci men Type: BLOOD SPECIMENOrdering Facility: [facility] Address: [address] [place] [address] Performed By: #### 5 7021-8 ####[facility] LABIA [id number] [place] [address] Hematocrit (Bld) [Volume fraction] 37.6 % Low 39.0-51.0 [facility] Comment on above: Order Comment: Speci men Type: BLOOD SPECIMENOrdering Facility: [facility] Address: [address] [place] [address] Performed By: #### 5 7021-8 ####[facility] LABIA [id number] [place] [address] Hemoglobin (Bld) [Mass/Vol] 12.4 g/dL Low 13.0-17.0 [facility] Comment on above: Order Comment: Speci men Type: BLOOD SPECIMENOrdering Facility: [facility] Address: [address] [place] [address] Performed By: #### 5 7021-8 ####[facility] LABCLIA [id number] [place] [address] Immature granulocytes (Bld) [#/Vol] 10*3/uL Normal <0.10 [facility] Comment on above: Order Comment: Speci men Type: BLOOD SPECIMENOrdering Facility: [facility] Address: [address] [place] [address] Performed By: #### 5 7021-8 ####[facility] LABCLIA [id number] [place] [address] Immature granulocytes/100 WBC (Bld) 0.3 % Normal [facility] Comment on above: Order Comment: Speci men Type: BLOOD SPECIMENOrdering Facility: [facility] Address: [address] [place] [address] Performed By: #### 5 7021-8 ####[facility] LABCLIA [id number] [place] [address] Lymphocytes (Bld) [#/Vol] 0.91 10*3/uL Low 1.00-4.00 [facility] Comment on above: Order Comment: Speci men Type: BLOOD SPECIMENOrdering Facility: [facility] Address: [address] [place] [address] Performed By: #### 5 7021-8 ####[facility] LABCLIA [id number] [place] [address] Lymphocytes/100 WBC (Bld) 14.8 % Normal [facility] Comment on above: Order Comment: Speci men Type: BLOOD SPECIMENOrdering Facility: [facility] Address: [address] [place] [address] Performed By: #### 5 7021-8 ####[facility] LABCLIA [id number] [place] [address] MCH (RBC) [Entitic mass] 27.1 pg Normal 26.0-34.0 [facility] Comment on above: Order Comment: Speci men Type: BLOOD SPECIMENOrdering Facility: [facility] Address: [address] [address] Performed By: #### 5 7021-8 ####[facility] LABCLIA [id number] [place] [address] MCHC (RBC) [Mass/Vol] 33.0 g/dL Normal 30.5-36.0 [facility] Comment on above: Order Comment: Speci men Type: BLOOD SPECIMENOrdering Facility: [facility] Address: [address] [place] [address] Performed By: #### 5 7021-8 ####[facility] LABIA [id number] [place] [address] MCV (RBC) [Entitic vol] 82.1 fL Normal 80.0-100.0 [facility] Comment on above: Order Comment: Speci men Type: BLOOD SPECIMENOrdering Facility: [facility] Address: [address] [place] [address] Performed By: #### 5 7021-8 ####[facility] LABIA [id number] [place] [address] Monocytes (Bld) [#/Vol] 0.45 10*3/uL Normal <0.87 [facility] Comment on above: Order Comment: Speci men Type: BLOOD SPECIMENOrdering Facility: [facility] Address: [address] [place] [address] Performed By: #### 5 7021-8 ####[facility] LABCLIA [id number] [place] [address] Monocytes/100 WBC (Bld) 7.3 % Normal [facility] Comment on above: Order Comment: Speci men Type: BLOOD SPECIMENOrdering Facility: [facility] Address: [address] [place] [address] Performed By: #### 5 7021-8 ####[facility] LABIA [id number] [place] [address] Neutrophils (Bld) [#/Vol] 4.47 10*3/uL Normal 1.45-7.50 [facility] Comment on above: Order Comment: Speci men Type: BLOOD SPECIMENOrdering Facility: [facility] Address: [address] [place] [address] Performed By: #### 5 7021-8 ####[facility] LABCLIA [id number] [place] [address] Neutrophils/100 WBC (Bld) 72.9 % Normal [facility] Comment on above: Order Comment: Speci men Type: BLOOD SPECIMENOrdering Facility: [facility] Address: [address] [place] [address] Performed By: #### 5 7021-8 ####[facility] LABCLIA [id number] [place] [address] Nucleated RBC (Bld) [#/Vol] 10*3/uL Normal <0.01 [facility] Comment on above: Order Comment: Speci men Type: BLOOD SPECIMENOrdering Facility: [facility] Address: [address] [place] [address] Performed By: #### 5 7021-8 ####[facility] LABCLIA [id number] [place] [address] Nucleated RBC/100 WBC (Bld) [Ratio] 0.0 /100 WBC Normal [facility] Comment on above: Order Comment: Speci men Type: BLOOD SPECIMENOrdering Facility: [facility] Address: [address] [place] [address] Performed By: #### 5 7021-8 ####[facility] LABCLIA [id number] [place] [address] Platelet mean volume (Bld) [Entitic vol] 8.8 fL Low 9.0-12.7 [facility] Comment on above: Order Comment: Speci men Type: BLOOD SPECIMENOrdering Facility: [facility] Address: [address] [place] [address] Performed By: #### 5 7021-8 ####[facility] LABCLIA [id number] [place] [address] Platelets (Bld) [#/Vol] 202 10*3/uL Normal 150-400 [facility] Comment on above: Order Comment: Speci men Type: BLOOD SPECIMENOrdering Facility: [facility] Address: [address] [place] [address] Performed By: #### 5 7021-8 ####[facility] LABCLIA [id number] [place] [address] RBC (Bld) [#/Vol] 4.58 10*6/uL Normal 4.20-6.00 [facility] Comment on above: Order Comment: Speci men Type: BLOOD SPECIMENOrdering Facility: [facility] Address: [address] [place] [address] Performed By: #### 5 7021-8 ####[facility] LABIA [id number] [place] [address] WBC (Bld) [#/Vol] 6.14 10*3/uL Normal 3.70-11.00 [facility] Comment on above: Order Comment: Speci men Type: BLOOD SPECIMENOrdering Facility: [facility] Address: [address] [place] [address] Performed By: #### 5 7021-8 ####[facility] LABIA [id number] [place] [address] CNOVSPon 01-23-2023 CNOVSP Normal [facility] CT CHEST WO IVCONon 01-24-20 CT CHEST WO IVCON Normal [facility] Comprehensive metabolic 2000 panelon 01-23-2023 Albumin [Mass/Vol] 4.4 g/dL Normal 3.9-4.9 [facility] Comment on above: Order Comment: Speci men Type: BLOOD SPECIMENOrdering Facility: [facility] Address: [address] [place] [address] Performed By: #### 2 4323-8 ####[facility] LABCLIA [id number] [place] [address] ALP [Catalytic activity/Vol] 76 U/L Normal 38-113 [facility] Comment on above: Order Comment: Speci men Type: BLOOD SPECIMENOrdering Facility: [facility] Address: [address] [place] [address] Performed By: #### 2 4323-8 ####[facility] LABCLIA [id number] [place] [address] ALT [Catalytic activity/Vol] 16 U/L Normal 10-54 [facility] Comment on above: Order Comment: Speci men Type: BLOOD SPECIMENOrdering Facility: [facility] Address: [address] [place] [address] Performed By: #### 2 4323-8 ####[facility] LABCLIA [id number] [place] [address] Anion gap [Moles/Vol] 7 mmol/L Low 9-18 [facility] Comment on above: Order Comment: Speci men Type: BLOOD SPECIMENOrdering Facility: [facility] Address: [address] [place] [address] Performed By: #### 2 4323-8 ####[facility] LABCLIA [id number] [place] [address] AST [Catalytic activity/Vol] 22 U/L Normal 14-40 [facility] Comment on above: Order Comment: Speci men Type: BLOOD SPECIMENOrdering Facility: [facility] Address: [address] [place] [address] Performed By: #### 2 4323-8 ####[facility] LABCLIA [id number] [place] [address] Bilirubin [Mass/Vol] 0.4 mg/dL Normal 0.2-1.3 [facility] Comment on above: Order Comment: Speci men Type: BLOOD SPECIMENOrdering Facility: [facility] Address: [address] [address] Performed By: #### 2 4323-8 ####[facility] LABCLIA [id number] [place] [address] Calcium [Mass/Vol] 9.0 mg/dL Normal 8.5-10.2 [facility] Comment on above: Order Comment: Speci men Type: BLOOD SPECIMENOrdering Facility: [facility] Address: [address] [address] Performed By: #### 2 4323-8 ####[facility] LABCLIA [id number] [place] [address] Chloride [Moles/Vol] 106 mmol/L High 97-105 [facility] Comment on above: Order Comment: Speci men Type: BLOOD SPECIMENOrdering Facility: [facility] Address: [address] [address] Performed By: #### 2 4323-8 ####[facility] LABCLIA [id number] [place] [address] CO2 [Moles/Vol] 25 mmol/L Normal 22-30 [facility] Comment on above: Order Comment: Speci men Type: BLOOD SPECIMENOrdering Facility: [facility] Address: [address] [address] Performed By: #### 2 4323-8 ####[facility] LABCLIA [id number] [place] [address] Creatinine [Mass/Vol] 2.30 mg/dL High 0.73-1.22 [facility] Comment on above: Order Comment: Speci men Type: BLOOD SPECIMENOrdering Facility: [facility] Address: [address] [address] Performed By: #### 2 4323-8 ####[facility] LABCLIA [id number] [place] [address] ESTIMATED GLOMERULAR FILTRATION RATE 27 mL/min/1.73m??? Low >=60 [facility] Comment on above: Order Comment: Vero barton Type: BLOOD SPECIMENOrdering Facility: [facility] Address: [address] [place] [address] Result Comment: Viviana mated Glomerular Filtration Rate [...] actual GFR. Performed By: #### 2 4323-8 ####[facility] LABCLIA [id number] [place] [address] Glucose [Mass/Vol] 100 mg/dL High 74-99 [facility] Comment on above: Order Comment: Vero barton Type: BLOOD SPECIMENOrdering Facility: [facility] Address: [address] [place] [address] Result Comment: The [place] Diabetes Association (ADA) provides guidance for cutoff [...] Standards of Medical Care in Diabetes 2016, [place] [employer]. Diabetes Care. 2016.39(Suppl 1). Performed By: #### 2 4323-8 ####[facility] LABCLIA [id number] [place] [address] Potassium [Moles/Vol] 4.2 mmol/L Normal 3.7-5.1 [facility] Comment on above: Order Comment: Speci men Type: BLOOD SPECIMENOrdering Facility: [facility] Address: [address] [place] [address] Performed By: #### 2 4323-8 ####[facility] LABCLIA [id number] [place] [address] Protein [Mass/Vol] 6.5 g/dL Normal 6.3-8.0 [facility] Comment on above: Order Comment: Speci men Type: BLOOD SPECIMENOrdering Facility: [facility] Address: [address] [place] [address] Performed By: #### 2 4323-8 ####[facility] LABCLIA [id number] [place] [address] Sodium [Moles/Vol] 138 mmol/L Normal 136-144 [facility] Comment on above: Order Comment: Speci men Type: BLOOD SPECIMENOrdering Facility: [facility] Address: [address] [place] [address] Performed By: #### 2 4323-8 ####[facility] LABCLIA [id number] [place] [address] Urea nitrogen [Mass/Vol] 36 mg/dL High 9-24 [facility] Comment on above: Order Comment: Speci men Type: BLOOD SPECIMENOrdering Facility: [facility] Address: [address] [place] [address] Performed By: #### 2 4323-8 ####[facility] LABCLIA [id number] [place] [address] Cortis SerPl-mCncon 01-24-20 23 Cortisol [Mass/Vol] 6.8 ug/dL Normal 4.8-19.5 [facility] Comment on above: Order Comment: Speci men Type: BLOOD SPECIMENOrdering Facility: [facility] Address: [address] [place] [address] Result Comment: Prov ided reference range is from 6-10 AM sample collection time.Cortisol Reference Range: 6-10 AM = 4.8-19.5 ug/dL, 4-8 PM = 2.5-11.9 ug/dL Performed By: #### 3 016-3, 2143-03 ####[facility] LABIA [id number] [address] [place] HbA1c (Bld)on 01-23-2023 Average glucose Estimated from glycated hemoglobin (Bld) [Mass/Vol] 105 mg/dL Normal [facility] Comment on above: Order Comment: Speci men Type: BLOOD SPECIMENOrdering Facility: [facility] Address: [address] [place] [address] Result Comment: eAG: (Estimated average glucose) is a calculated value from HgbA1c and is primary care sales representative of the average blood glucose level in the last 2-3 month period. Performed By: #### 5 5454-3 ####[facility] LABIA [id number] [address] HbA1c (Bld) [Mass fraction] 5.3 % Normal 4.3-5.6 [facility] Comment on above: Order Comment: Speci men Type: BLOOD SPECIMENOrdering Facility: [facility] Address: [address] [place] [address] Result Comment: [place] Diabetes Association guidelines indicate that patients with HgbA1c in the range 5.7-6.4% are at increased risk for development of diabetes, and intervention by lifestyle modification may be beneficial. HgbA1c greater or equal to 6.5% is considered diagnostic of diabetes. Performed By: #### 5 5454-3 ####[facility] LABIA [id number] [place] [address] [place] TSH SerPl-aCncon 01-23-2023 TSH Qn 2.850 m[IU]/L Normal 0.270-4.200 [facility] Comment on above: Order Comment: Speci men Type: BLOOD SPECIMENOrdering Facility: [facility] Address: [address] [place] [address] Performed By: #### 3 016-3, 2142-6 ####[facility] LABCLIA [id number] [place] [address] [place] ECHOCARDIO M/2D COMPLETEon 0 01-11-2023 ECHOCARDIO M/2D COMPLETE Patient: JUAN JOSE AUSTIN Exam Date: 01/11/2023 : 1940 Gender:M Ordering : DR YOAN SNEED . Admission #: [id number] Family : DR CASEY CASTANEDA M.D. Order #: [id number] CLICK HERE TO VIEW EXAM ECHOCARDIOGRAM REPORT [...] Michel M.D. on 01/11/2023 at 15:32 Normal [facility] CNPNon 01-08-2023 CNPN Normal [facility] CNOVSPon 01-02-2023 CNOVSP Normal [facility] CBC W Auto Differential pane l (Bld)on 12-31-2022 Basophils (Bld) [#/Vol] 0.06 10*3/uL Normal <0.11 [facility] Comment on above: Order Comment: Speci men Type: BLOOD SPECIMENOrdering Facility: [facility] Address: [address] [address] Performed By: #### 5 7021-8 ####[facility] LABCLIA [id number] [place] [address] Basophils/100 WBC (Bld) 0.7 % Normal [facility] Comment on above: Order Comment: Speci men Type: BLOOD SPECIMENOrdering Facility: [facility] Address: [address] [place] [address] Performed By: #### 5 7021-8 ####[facility] LABCLIA [id number] [place] [address] Differential cell count method Nom (Bld) Auto Normal [facility] Comment on above: Order Comment: Speci men Type: BLOOD SPECIMENOrdering Facility: [facility] Address: [address] [place] [address] Performed By: #### 5 7021-8 ####[facility] LABCLIA [id number] [place] [address] Eosinophils (Bld) [#/Vol] 0.25 10*3/uL Normal <0.46 [facility] Comment on above: Order Comment: Speci men Type: BLOOD SPECIMENOrdering Facility: [facility] Address: [address] [place] [address] Performed By: #### 5 7021-8 ####[facility] LABCLIA [id number] [place] [address] Eosinophils/100 WBC (Bld) 3.1 % Normal [facility] Comment on above: Order Comment: Speci men Type: BLOOD SPECIMENOrdering Facility: [facility] Address: [address] [place] [address] Performed By: #### 5 7021-8 ####[facility] LABCLIA [id number] [place] [address] Erythrocyte distribution width (RBC) [Ratio] 16.1 % High 11.5-15.0 [facility] Comment on above: Order Comment: Speci men Type: BLOOD SPECIMENOrdering Facility: [facility] Address: [address] [address] Performed By: #### 5 7021-8 ####[facility] LABCLIA [id number] [place] [address] Hematocrit (Bld) [Volume fraction] 39.5 % Normal 39.0-51.0 [facility] Comment on above: Order Comment: Speci men Type: BLOOD SPECIMENOrdering Facility: [facility] Address: [address] [address] Performed By: #### 5 7021-8 ####[facility] LABCLIA [id number] [place] [address] Hemoglobin (Bld) [Mass/Vol] 12.8 g/dL Low 13.0-17.0 [facility] Comment on above: Order Comment: Speci men Type: BLOOD SPECIMENOrdering Facility: [facility] Address: [address] [address] Performed By: #### 5 7021-8 ####[facility] LABIA [id number] [place] [address] Immature granulocytes (Bld) [#/Vol] 0.03 10*3/uL Normal <0.10 [facility] Comment on above: Order Comment: Speci men Type: BLOOD SPECIMENOrdering Facility: [facility] Address: [address] [address] Performed By: #### 5 7021-8 ####[facility] LABIA [id number] [place] [address] Immature granulocytes/100 WBC (Bld) 0.4 % Normal [facility] Comment on above: Order Comment: Speci men Type: BLOOD SPECIMENOrdering Facility: [facility] Address: [address] [address] Performed By: #### 5 7021-8 ####[facility] LABCLIA [id number] [place] [address] Lymphocytes (Bld) [#/Vol] 0.93 10*3/uL Low 1.00-4.00 [facility] Comment on above: Order Comment: Speci men Type: BLOOD SPECIMENOrdering Facility: [facility] Address: [address] [place] [address] Performed By: #### 5 7021-8 ####[facility] LABCLIA [id number] [place] [address] Lymphocytes/100 WBC (Bld) 11.6 % Normal [facility] Comment on above: Order Comment: Speci men Type: BLOOD SPECIMENOrdering Facility: [facility] Address: [address] [place] [address] Performed By: #### 5 7021-8 ####[facility] LABCLIA [id number] [place] [address] MCH (RBC) [Entitic mass] 26.4 pg Normal 26.0-34.0 [facility] Comment on above: Order Comment: Speci men Type: BLOOD SPECIMENOrdering Facility: [facility] Address: [address] [place] [address] Performed By: #### 5 7021-8 ####[facility] LABCLIA [id number] [place] [address] MCHC (RBC) [Mass/Vol] 32.4 g/dL Normal 30.5-36.0 [facility] Comment on above: Order Comment: Speci men Type: BLOOD SPECIMENOrdering Facility: [facility] Address: [address] [place] [address] Performed By: #### 5 7021-8 ####[facility] LABCLIA [id number] [place] [address] MCV (RBC) [Entitic vol] 81.4 fL Normal 80.0-100.0 [facility] Comment on above: Order Comment: Speci men Type: BLOOD SPECIMENOrdering Facility: [facility] Address: [address] [address] Performed By: #### 5 7021-8 ####[facility] LABCLIA [id number] [place] [address] Monocytes (Bld) [#/Vol] 0.49 10*3/uL Normal <0.87 [facility] Comment on above: Order Comment: Speci men Type: BLOOD SPECIMENOrdering Facility: [facility] Address: [address] [address] Performed By: #### 5 7021-8 ####[facility] LABCLIA [id number] [place] [address] Monocytes/100 WBC (Bld) 6.1 % Normal [facility] Comment on above: Order Comment: Speci men Type: BLOOD SPECIMENOrdering Facility: [facility] Address: [address] [place] [address] Performed By: #### 5 7021-8 ####[facility] LABCLIA [id number] [place] [address] Neutrophils (Bld) [#/Vol] 6.25 10*3/uL Normal 1.45-7.50 [facility] Comment on above: Order Comment: Speci men Type: BLOOD SPECIMENOrdering Facility: [facility] Address: [address] [address] Performed By: #### 5 7021-8 ####[facility] LABCLIA [id number] [place] [address] Neutrophils/100 WBC (Bld) 78.1 % Normal [facility] Comment on above: Order Comment: Speci men Type: BLOOD SPECIMENOrdering Facility: [facility] Address: [address] [place] [address] Performed By: #### 5 7021-8 ####[facility] LABCLIA [id number] [place] [address] Nucleated RBC (Bld) [#/Vol] 10*3/uL Normal <0.01 [facility] Comment on above: Order Comment: Speci men Type: BLOOD SPECIMENOrdering Facility: [facility] Address: [address] [place] [address] Performed By: #### 5 7021-8 ####[facility] LABCLIA [id number] [place] [address] Nucleated RBC/100 WBC (Bld) [Ratio] 0.0 /100 WBC Normal [facility] Comment on above: Order Comment: Speci men Type: BLOOD SPECIMENOrdering Facility: [facility] Address: [address] [place] [address] Performed By: #### 5 7021-8 ####[facility] LABIA [id number] [place] [address] Platelet mean volume (Bld) [Entitic vol] 9.1 fL Normal 9.0-12.7 [facility] Comment on above: Order Comment: Speci men Type: BLOOD SPECIMENOrdering Facility: [facility] Address: [address] [place] [address] Performed By: #### 5 7021-8 ####[facility] LABCLIA [id number] [place] [address] Platelets (Bld) [#/Vol] 215 10*3/uL Normal 150-400 [facility] Comment on above: Order Comment: Speci men Type: BLOOD SPECIMENOrdering Facility: [facility] Address: [address] [place] [address] Performed By: #### 5 7021-8 ####[facility] LABIA [id number] [place] [address] RBC (Bld) [#/Vol] 4.85 10*6/uL Normal 4.20-6.00 [facility] Comment on above: Order Comment: Speci men Type: BLOOD SPECIMENOrdering Facility: [facility] Address: [address] [address] Performed By: #### 5 7021-8 ####[facility] LABIA [id number] [place] [address] WBC (Bld) [#/Vol] 8.01 10*3/uL Normal 3.70-11.00 [facility] Comment on above: Order Comment: Speci men Type: BLOOD SPECIMENOrdering Facility: [facility] Address: [address] [address] Performed By: #### 5 7021-8 ####[facility] LABIA [id number] [place] [address] CNCNPATEDon 12-31-2022 CNCNPATED Normal [facility] metabolic 2000 panelon 12-31-2022 Albumin [Mass/Vol] 4.4 g/dL Normal 3.9-4.9 [facility] Comment on above: Order Comment: Speci men Type: BLOOD SPECIMENOrdering Facility: [facility] Address: [address] [address] Performed By: #### 2 4323-8 ####[facility] LABIA [id number] [place] [address] ALP [Catalytic activity/Vol] 76 U/L Normal 38-113 [facility] Comment on above: Order Comment: Speci men Type: BLOOD SPECIMENOrdering Facility: [facility] Address: [address] [address] Performed By: #### 2 4323-8 ####[facility] LABIA [id number] [place] [address] ALT [Catalytic activity/Vol] 13 U/L Normal 10-54 [facility] Comment on above: Order Comment: Speci men Type: BLOOD SPECIMENOrdering Facility: [facility] Address: [address] [address] Performed By: #### 2 4323-8 ####[facility] LABCLIA [id number] [place] [address] Anion gap [Moles/Vol] 11 mmol/L Normal 9-18 [facility] Comment on above: Order Comment: Speci men Type: BLOOD SPECIMENOrdering Facility: [facility] Address: [address] [place] [address] Performed By: #### 2 4323-8 ####[facility] LABCLIA [id number] [place] [address] AST [Catalytic activity/Vol] 22 U/L Normal 14-40 [facility] Comment on above: Order Comment: Speci men Type: BLOOD SPECIMENOrdering Facility: [facility] Address: [address] [place] [address] Performed By: #### 2 4323-8 ####[facility] LABCLIA [id number] [place] [address] Bilirubin [Mass/Vol] 0.4 mg/dL Normal 0.2-1.3 [facility] Comment on above: Order Comment: Speci men Type: BLOOD SPECIMENOrdering Facility: [facility] Address: [address] [place] [address] Performed By: #### 2 4323-8 ####[facility] LABCLIA [id number] [place] [address] Calcium [Mass/Vol] 9.7 mg/dL Normal 8.5-10.2 [facility] Comment on above: Order Comment: Speci men Type: BLOOD SPECIMENOrdering Facility: [facility] Address: [address] [place] [address] Performed By: #### 2 4323-8 ####[facility] LABCLIA [id number] [place] [address] Chloride [Moles/Vol] 101 mmol/L Normal 97-105 [facility] Comment on above: Order Comment: Speci men Type: BLOOD SPECIMENOrdering Facility: [facility] Address: [address] [address] Performed By: #### 2 4323-8 ####[facility] SYSTEM LABCLIA [id number] [place] [address] CO2 [Moles/Vol] 26 mmol/L Normal 22-30 [facility] Comment on above: Order Comment: Speci men Type: BLOOD SPECIMENOrdering Facility: [facility] Address: [address] [address] Performed By: #### 2 4323-8 ####[facility] LABCLIA [id number] [place] [address] Creatinine [Mass/Vol] 1.93 mg/dL High 0.73-1.22 [facility] Comment on above: Order Comment: Speci men Type: BLOOD SPECIMENOrdering Facility: [facility] Address: [address] [place] [address] Performed By: #### 2 4323-8 ####[facility] LABCLIA [id number] [place] [address] ESTIMATED GLOMERULAR FILTRATION RATE 34 mL/min/1.73m??? Low >=60 [facility] Comment on above: Order Comment: Speci men Type: BLOOD SPECIMENOrdering Facility: [facility] Address: [address] [place] [address] Result Comment: Viviana mated Glomerular Filtration Rate [...] actual GFR. Performed By: #### 2 4323-8 ####[facility] LABCLIA [id number] [place] [address] Glucose [Mass/Vol] 116 mg/dL High 74-99 [facility] Comment on above: Order Comment: Speci men Type: BLOOD SPECIMENOrdering Facility: [facility] Address: [address] [id number] Result Comment: The [place] Diabetes Association (ADA) provides guidance for cutoff [...] Standards of Medical Care in Diabetes 2016, [place] [employer] Association. Diabetes Care. 2016.39(Suppl 1). Performed By: #### 2 4323-8 ####[facility] LABCLIA [id number] [place] [address] Potassium [Moles/Vol] 4.2 mmol/L Normal 3.7-5.1 [facility] Comment on above: Order Comment: Speci men Type: BLOOD SPECIMENOrdering Facility: [facility] Address: [address] Performed By: #### 2 4323-8 ####[facility] LABCLIA [id number] [place] [address] Protein [Mass/Vol] 6.6 g/dL Normal 6.3-8.0 [facility] Comment on above: Order Comment: Speci men Type: BLOOD SPECIMENOrdering Facility: [facility] Address: [address] [id number] Performed By: #### 2 4323-8 ####[facility] LABCLIA [id number] [place] [address] Sodium [Moles/Vol] 138 mmol/L Normal 136-144 [facility] Comment on above: Order Comment: Speci men Type: BLOOD SPECIMENOrdering Facility: [facility] Address: [address] [address] Performed By: #### 2 4323-8 ####[facility] LABCLIA [id number] [place] [address] Urea nitrogen [Mass/Vol] 37 mg/dL High 9- [facility] Comment on above: Order Comment: Speci men Type: BLOOD SPECIMENOrdering Facility: [facility] Address: [address] [address] Performed By: #### 2 4323-8 ####[facility] LABCLIA [id number] [place] [address] [place] SerPl-mCncon 01-01-20 23 Cortisol [Mass/Vol] 6.4 ug/dL Normal 4.8-19.5 [facility] Comment on above: Order Comment: Speci men Type: BLOOD SPECIMENOrdering Facility: [facility] Address: [address] [address] Result Comment: Prov ided reference range is from 6-10 AM sample collection time.Cortisol Reference Range: 6-10 AM = 4.8-19.5 ug/dL, 4-8 PM = 2.5-11.9 ug/dL Performed By: #### 3 016-3, 2143-6 ####[facility] LABCLIA [id number] [address] HbA1c (Bld)on 12-31-2022 Average glucose Estimated from glycated hemoglobin (Bld) [Mass/Vol] 105 mg/dL Normal [facility] Comment on above: Order Comment: Speci men Type: BLOOD SPECIMENOrdering Facility: [facility] Address: [address] [address] Result Comment: eAG: (Estimated average glucose) is a calculated value from HgbA1c and is primary care sales representative of the average blood glucose level in the last 2-3 month period. Performed By: #### 5 5454-3 ####[facility] LABCLIA [id number] [address] [place] HbA1c (Bld) [Mass fraction] 5.3 % Normal 4.3-5.6 [facility] Comment on above: Order Comment: Farrahi men Type: BLOOD SPECIMENOrdering Facility: [facility] Address: [place] [address] Result Comment: [place] Diabetes Association guidelines indicate that patients with HgbA1c in the range 5.7-6.4% are at increased risk for development of diabetes, and intervention by lifestyle modification may be beneficial. HgbA1c greater or equal to 6.5% is considered diagnostic of diabetes. Performed By: #### 5 5454-3 ####[facility] LABCLIA [id number] [address] [place] TSH SerPl-aCncon 12-31-2022 TSH Qn 3.730 m[IU]/L Normal 0.270-4.200 [facility] Comment on above: Order Comment: Speci men Type: BLOOD SPECIMENOrdering Facility: [facility] Address: [place] [facility] [address] [phone] Performed By: #### 3 016-3, 2143-6 ####[facility] LABIA [id number] [address] OF [facility] Consent for Procedure/Surger yon 12-20-2022 Consent for Procedure/Surgery [id number]:[address] [facility] Urology Office/Clinic Noteon 12-18-2022 Urology Office/Clinic [...] Jian Lee, URL [facility] [address] [place] [address]- Additional Instructions: PRN Patient Education I, Marisabel [...] tab(s), O (more content not included)... Normal [facility] Comment on above: Result Comment: Elec tronically Signed By: Jian RODRIGUEZ MD\.br\Date and Time Signed: 12/18/22 12:13 EST\.br\Electronically Co-Signed By: Marisabel Reeves\.br\Date and Time Co-Signed: 12/18/22 12:12 EST CBC AUTO DIFFon 12-08-2022 BASO # 0.1 103/ul Normal 0.0-0.1 [facility] Comment on above: Performed By: #### C K, HSTROPN, CMP, BNP #### [facility] [address] [place] [address] Dr. Tan Oliveros Basophils/100 WBC (Bld) 0.9 % Normal 0.2-2.0 [facility] Comment on above: Performed By: #### C K, HSTROPN, CMP, BNP #### [facility] [address] [place] [address] Dr. Tan Oliveros EO # 0.2 103/ul Normal 0.0-0.7 [facility] Comment on above: Performed By: #### C K, HSTROPN, CMP, BNP #### [facility] [address] [place] [address] Dr. Tan Oliveros Eosinophils/100 WBC (Bld) 3.7 % Normal 0.9-7.0 [facility] Comment on above: Performed By: #### C K, HSTROPN, CMP, BNP #### [facility] [address] [place] [address] Dr. Tan Oliveros Erythrocyte distribution width (RBC) [Ratio] 17.1 % Critically high 11.0-15.0 [facility] Comment on above: Performed By: #### C K, HSTROPN, CMP, BNP #### [facility] [address] [place] [address] Dr. Tan Oliveros Hematocrit (Bld) [Volume fraction] 38.5 % Critically low 42.0-54.0 [facility] Comment on above: Performed By: #### C K, HSTROPN, CMP, BNP #### [facility] [address] [place] [address] Dr. Tan Oliveros Hemoglobin (Bld) [Mass/Vol] 12.7 g/dL Critically low 14.0-18.0 [facility] Comment on above: Performed By: #### C K, HSTROPN, CMP, BNP #### [facility] [address] [place] [address] Dr. Tan Oliveros IG # 0.02 10e3/ul Normal 0.00-0.03 [facility] Comment on above: Performed By: #### C K, HSTROPN, CMP, BNP #### [facility] [address] [place] [address] Dr. Tan Oliveros IG % 0.4 % Normal 0.0-0.5 [facility] Comment on above: Performed By: #### C K, HSTROPN, CMP, BNP #### [facility] [address] [place] [address] Dr. Tan Oliveros LYMPH # 0.7 103/ul Critically low 1.2-3.8 [facility] Comment on above: Performed By: #### C K, HSTROPN, CMP, BNP #### [facility] [address] [place] [address] Dr. Tan Oliveros Lymphocytes/100 WBC (Bld) 12.3 % Critically low 20.5-60.0 [facility] Comment on above: Performed By: #### C K, HSTROPN, CMP, BNP #### [facility] [address] [place] [address] Dr. Tan Oliveros MANUAL DIFF REQ NO Normal [facility] Comment on above: Performed By: #### C K, HSTROPN, CMP, BNP #### [facility] [address] [place] [address] Dr. Tan Oliveros MCH (RBC) [Entitic mass] 26.1 pg Normal 25.9-34.0 [facility] Comment on above: Performed By: #### C K, HSTROPN, CMP, BNP #### [facility] [address] [place] [address] Dr. Tan Oliveros MCHC (RBC) [Mass/Vol] 33.0 g/dL Normal 29.9-35.2 [facility] Comment on above: Performed By: #### C K, HSTROPN, CMP, BNP #### [facility] [address] [place] [address] Dr. Tan Oliveros MCV (RBC) [Entitic vol] 79.2 fL Critically low 80.0-94.0 [facility] Comment on above: Performed By: #### C K, HSTROPN, CMP, BNP #### [facility] [address] [place] [address] Dr. Tan Oliveros MONO # 0.4 103/ul Normal 0.3-0.8 [facility] Comment on above: Performed By: #### C K, HSTROPN, CMP, BNP #### [facility] [address] [place] [address] Dr. Tan Oliveros Monocytes/100 WBC (Bld) 6.5 % Normal 1.7-12.0 [facility] Comment on above: Performed By: #### C K, HSTROPN, CMP, BNP #### [facility] [address] [place] [address] Dr. Tan Oliveros NEUT # 4.3 103/ul Normal 1.4-6.5 [facility] Comment on above: Performed By: #### C K, HSTROPN, CMP, BNP #### [facility] [address] [place] [address] Dr. Tan Oliveros Neutrophils/100 WBC (Bld) 76.2 % Critically high 43.0-75.0 [facility] Comment on above: Performed By: #### C K, HSTROPN, CMP, BNP #### [facility] [address] [place] [address] Dr. Tan Oliveros Platelet mean volume (Bld) [Entitic vol] 9.7 fL Normal 9.5-13.5 [facility] Comment on above: Performed By: #### C K, HSTROPN, CMP, BNP #### [facility] [address] [place] [address] Dr. Tan Oliveros PLT 199 103/ul Normal 150-450 [facility] Comment on above: Performed By: #### C K, HSTROPN, CMP, BNP #### [facility] [address] [place] [address] Dr. Tan Oliveros RBC 4.86 106/ul Normal 4.70-6.10 [facility] Comment on above: Performed By: #### C K, HSTROPN, CMP, BNP #### [facility] [address] [place] [address] Dr. Tan Oliveros WBC 5.7 103/ul Normal 4.0-11.0 [facility] Comment on above: Performed By: #### C K, HSTROPN, CMP, BNP #### [facility] [address] [place] [address] Dr. Tan Oliveros CULTURE URINEon 12-08-2022 CULTURE URINE Culture Observations : NO GROWTH. Normal [facility] Comment on above: Performed By: #### C K, HSTROPN, CMP, BNP #### [facility] [address] [place] [address] Dr. Tan Oliveros ER URINE PROFILEon 3 Bilirubin Ql (U) Negative Normal NEGATIVE [facility] Comment on above: Performed By: #### C K, HSTROPN, CMP, BNP #### [facility] [address] [place] [address] Dr. Tan Oliveros Clarity (U) CLEAR Normal CLEAR [facility] Comment on above: Performed By: #### C K, HSTROPN, CMP, BNP #### [facility] [address] [place] [address] Dr. Tan Oliveros Color (U) LT. YELLOW Normal YELLOW [facility] Comment on above: Performed By: #### C K, HSTROPN, CMP, BNP #### [facility] [address] [place] [address] Dr. Tan CORDOVA A micrscopic examination will be performed if indicated. Normal [facility] Comment on above: Performed By: #### C K, HSTROPN, CMP, BNP #### [facility] [address] [address] [address] Tan Oliveros Glucose Ql (U) Negative Normal NEGATIVE [facility] Comment on above: Performed By: #### C K, HSTROPN, CMP, BNP #### [facility] [address] [address] [address] Tan Oliveros Hemoglobin Ql (U) LARGE Abnormal NEGATIVE [facility] Comment on above: Performed By: #### C K, HSTROPN, CMP, BNP #### [facility] [address] [address] [address] Tan Oliveros Ketones Ql (U) Negative Normal NEGATIVE [facility] Comment on above: Performed By: #### C K, HSTROPN, CMP, BNP #### [facility] [address] [place] [address] Dr. Tan Oliveros LEUKOCYTES SMALL Abnormal NEGATIVE [facility] Comment on above: Performed By: #### C K, HSTROPN, CMP, BNP #### [facility] [address] [address] [address] Tan Oliveros Nitrite Ql (U) Negative Normal NEGATIVE [facility] Comment on above: Performed By: #### C K, HSTROPN, CMP, BNP #### [facility] [address] [address] [address] Tan Oliveros pH (U) 6.0 [pH] Normal 5-9 [facility] Comment on above: Performed By: #### C K, HSTROPN, CMP, BNP #### [facility] [address] [address] [address] Tan Oliveros SPEC GRAVITY 1.010 Normal 1.005-<=1.025 [facility] Comment on above: Performed By: #### C K, HSTROPN, CMP, BNP #### [facility] [address] [address] [address] Tan Oliveros UA PROTEIN Negative Normal NEGATIVE/ TRACE [facility] Comment on above: Performed By: #### C K, HSTROPN, CMP, BNP #### [facility] [address] [place] [address] Dr. Tan Oliveros UR MICRO IND INDICATED Normal [facility] Comment on above: Performed By: #### C K, HSTROPN, CMP, BNP #### [facility] [address] [address] [address] Tan Oliveros Urobilinogen Qn (U) 0.2 {Maged'U}/dL Normal 0.2 - 1. 0 [facility] Comment on above: Performed By: #### C K, HSTROPN, CMP, BNP #### [facility] [address] [place] [address] Dr. Tan Oliveros POINT OF CARE GLUCOSEon 11-15 Glucose [Mass/Vol] 114 mg/dL Critically high 74-106 [facility] Comment on above: Performed By: #### C K, HSTROPN, CMP, BNP #### [facility] [address] [place] [address] Dr. Tan Oliveros PROF CHEM 8 (BAS METB)on Anion gap [Moles/Vol] 13.2 mmol/L Normal [facility] Comment on above: Performed By: #### H FIONA, BMP #### [facility] [address] [place] [address] Dr. Tan Oliveros Calcium [Mass/Vol] 8.9 mg/dL Normal 8.5-10.1 [facility] Comment on above: Performed By: #### H STROPN, BMP #### [facility] [address] [place] [address] Dr. Tan Oliveros Chloride [Moles/Vol] 104 mmol/L Normal 98-107 [facility] Comment on above: Performed By: #### H DEEPN, BMP #### [facility] [address] [place] [address] Dr. Tan Oliveros CO2 [Moles/Vol] 27.1 mmol/L Normal 21.0-32.0 [facility] Comment on above: Performed By: #### H STROPN, BMP #### [facility] [address] [address] [address] Tan Oilveros Creatinine [Mass/Vol] 2.11 mg/dL Critically high 0.70-1.30 [facility] Comment on above: Performed By: #### H STROPN, BMP #### [facility] [address] [address] [address] Tan Oliveros EGFR-AF FILIPINO 37 mL/min/1.73m2 Critically low >=60 [facility] Comment on above: Performed By: #### H STROPN, BMP #### [facility] [address] [address] [address] Tan Oliveros EGFR-NON AF FILIPINO 30 mL/min/1.73m2 Critically low >=60 [facility] Comment on above: Performed By: #### H STROPN, BMP #### [facility] [address] [address] [address] Tan Oliveros Glucose [Mass/Vol] 107 mg/dL Critically high 74-106 [facility] Comment on above: Performed By: #### H STROPN, BMP #### [facility] [address] [address] [address] Tan Oliveros Potassium [Moles/Vol] 4.3 mmol/L Normal 3.5-5.1 [facility] Comment on above: Performed By: #### H STROPN, BMP #### [facility] [address] [place] [address] Dr. Tan Oliveros Sodium [Moles/Vol] 140 mmol/L Normal 136-145 [facility] Comment on above: Performed By: #### H STROPN, BMP #### [facility] [address] [address] [address] Tan Oliveros Urea nitrogen [Mass/Vol] 32.0 mg/dL Critically high 7.0-18.0 [facility] Comment on above: Performed By: #### H STROPN, BMP #### [facility] [address] [address] [address] Tan Oliveros Urea nitrogen/Creatinine [Mass ratio] 15.2 mg/mg Normal [facility] Comment on above: Performed By: #### H STROYOMAIRA, BMP #### [facility] [address] [address] [address] Tan Oliveros TROPONIN, HIGH SENSITIVITYon 12-08-2022 HSTROP 54.6 pg/mL Normal 4.0-76.1 [facility] Comment on above: Result Comment: CUT- OFF POINTS HAVE BEEN ESTABLISHED BASED ON THE FOURTH UNIVERSAL DEFINITIONS OF MYOCARDIAL INFARCTION. THE UPPER REFERENCE LIMIT (URL) OF TROPONIN, DEFINED THE 99TH PERCENTILE OF cTnI DISTRIBUTION IN A REFERENCE POPULATION, HAS BEEN CONFIRMED THE DECISION THRESHOLD FOR [place] DIAGNOSIS. Performed By: #### H FIONA, BMP #### [facility] [address] [address] [address] Tan Oliveros URINE MICROSCOPIC ONLYon BACTERIA TRACE Abnormal NONE SEEN [facility] Comment on above: Performed By: #### C K, HSTROPN, CMP, BNP #### [facility] [address] [place] [address] Dr. Tan Oliveros Bacteria identified Cx Nom (U) INDICATED Normal [facility] Comment on above: Performed By: #### C K, HSTROPN, CMP, BNP #### [facility] [address] [address] [address] Tan Oliveros CAST NONE SEEN Normal NONE SEEN [facility] Comment on above: Performed By: #### C K, HSTROPN, CMP, BNP #### [facility] [address] [place] [address] Dr. Tan Oliveros Crystals LM Nom (Urine sed) NONE SEEN Normal NONE SEEN [facility] Comment on above: Performed By: #### C K, HSTROPN, CMP, BNP #### [facility] [address] [address] [address] Tan Oliveros Epithelial cells LM Ql (Urine sed) RARE Normal NONE SEEN /RARE [facility] Comment on above: Performed By: #### C K, HSTROPN, CMP, BNP #### [facility] [address] [address] [address] Tan Oliveros MUCOUS NONE SEEN Normal NONE SEEN [facility] Comment on above: Performed By: #### C K, HSTROPN, CMP, BNP #### [facility] [address] [place], [place] [address] Dr. Tan Oliveros RBC 20-50 Abnormal 0-2 [facility] Comment on above: Performed By: #### C K, HSTROPN, CMP, BNP #### [facility] [address] [place], [place] [address] Dr. Tan Oliveros WBC 2-5 Abnormal NONE SEEN [facility] Comment on above: Performed By: #### C K, HSTROPN, CMP, BNP #### [facility] [address] [place], [place] [address] Dr. Tan Oliveros XR CHEST 1 Von 12-08-2022 XR CHEST 1 V EXAM: XR CHEST 1 V HISTORY: SHORTNESS OF BREATH COMPARISON: 02/26/2022 TECHNIQUE: Single view of the FINDINGS: Heart size normal. No focal consolidation, pleural effusion, pulmonary congestion or pneumothorax. IMPRESSION: No acute findings. Electronically authenticated by: AUGUSTINA JAMES Date: 2022-12-08 12:54 Normal [facility] Screenson 12-06-2022 Screens [id number] CD:[address] [facility] Ambulatory Visit Summaryon 0 12-05-2022 Ambulatory Visit Summary JUAN JOSE AUSTIN Shirley :1940 Visit Date:12/05/2022 Ambulatory Visit Instructions Your Diagnosis Enlarged prostate with urinary obstruction Bladder cancer Cancer of kidney Gross hematuria Other obstructive and reflux uropathy Tests Performed Urnls Dip Stick Auto w/o Microscopy POC 25088 Your Care Team Attending Physician - JENNIFER [...] Where: [facility] [address] , [place] [address]- Medications What How Much When Instructions Unchanged [...] Urnls Dip Stick Auto w/o Microscopy POC 66701 (12/05/2022) Bilirubin Urine Dipstick - Negative Blood Urine Dipstick - 3+ Large Glucose Urine Dipstick - 1+ 250 mg/dl Ketones Urine Dipstick - Negative Leukocytes Urine Dipstick - 1+ Small Nitrite Urine Dipstick - Negative Protein Urine Dipstick - Trace Specific Butler Urine Dipstick - 1.020 Urine Appearance Urine [...] may make (more content not included)... Normal [facility] Patient Educationon 12-05-19 23 Patient Education [...] Follow these instructions at home: ? Take wqji-jkj-ssxmjoh and prescription medicines only as told by [...] important. Where to find more information ? [place] [employer]: www.cancer.org ? National Cancer [employer] (NCI): www.cancer.gov Contact a health care provider [...] 10/02/2004 Document Revised: 09/12/2018 Document Reviewed: 09/03/2017 [employer] Patient Education ? 2019 [employer] Urology Office/Clinic Noteon 12-05-2022 Urology Office/Clinic [...] [facility] [address], [place] [address]- Additional Instructions: Patient Education Bladder Cancer I, [...] Gross hematuria (more content not included)... Normal [facility] Comment on above: Result Comment: Elec tronically Signed By: Jian RODRIGUEZ MD\.br\Date and Time Signed: 12/05/22 10:43 EST\.br\Electronically Co-Signed By: Priya Moody\.br\Date and Time Co-Signed: 12/05/22 10:40 EST Consultation Noteon 11-27-19 Consultation Note [id number] 0CD:[address] [facility] CBC AUTO DIFFon 11-09-2022 BASO # 0.1 103/ul Normal 0.0-0.1 [facility] Comment on above: Performed By: #### C K, HSTROPN, CMP, BNP #### [facility] [address] [place] [address] Dr. Tan Oliveros Basophils/100 WBC (Bld) 0.7 % Normal 0.2-2.0 [facility] Comment on above: Performed By: #### C K, HSTROPN, CMP, BNP #### [facility] [address] [place] [address] Dr. Tan Oliveros EO # 0.2 103/ul Normal 0.0-0.7 [facility] Comment on above: Performed By: #### C K, HSTROPN, CMP, BNP #### [facility] [address] [address] [address] Tan Oliveros Eosinophils/100 WBC (Bld) 2.6 % Normal 0.9-7.0 [facility] Comment on above: Performed By: #### C K, HSTROPN, CMP, BNP #### [facility] [address] [place] [address] Dr. Tan Oliveros Erythrocyte distribution width (RBC) [Ratio] 17.2 % Critically high 11.0-15.0 [facility] Comment on above: Performed By: #### C K, HSTROPN, CMP, BNP #### [facility] [address] [place] [address] Dr. Tan Oliveros Hematocrit (Bld) [Volume fraction] 43.8 % Normal 42.0-54.0 [facility] Comment on above: Performed By: #### C K, HSTROPN, CMP, BNP #### [facility] [address] [address] [address] Tan Oliveros Hemoglobin (Bld) [Mass/Vol] 14.4 g/dL Normal 14.0-18.0 [facility] Comment on above: Performed By: #### C K, HSTROPN, CMP, BNP #### [facility] [address] [place] [address] Dr. Tan Oliveros IG # 0.01 10e3/ul Normal 0.00-0.03 [facility] Comment on above: Performed By: #### C K, HSTROPN, CMP, BNP #### [facility] [address] [place] [address] Dr. Tan Oliveros IG % 0.1 % Normal 0.0-0.5 [facility] Comment on above: Performed By: #### C K, HSTROPN, CMP, BNP #### [facility] [address] [place] [address] Dr. Tan Oliveros LYMPH # 1.3 103/ul Normal 1.2-3.8 [facility] Comment on above: Performed By: #### C K, HSTROPN, CMP, BNP #### [facility] [address] [place] [address] Dr. Tan Oliveros Lymphocytes/100 WBC (Bld) 18.4 % Critically low 20.5-60.0 [facility] Comment on above: Performed By: #### C K, HSTROPN, CMP, BNP #### [facility] [address] [place] [address] Dr. Tan Oliveros MANUAL DIFF REQ NO Normal [facility] Comment on above: Performed By: #### C K, HSTROPN, CMP, BNP #### [facility] [address] [place] [address] Dr. Tan Oliveros MCH (RBC) [Entitic mass] 25.0 pg Critically low 25.9-34.0 [facility] Comment on above: Performed By: #### C K, HSTROPN, CMP, BNP #### [facility] [address] [place] [address] Dr. Tan Oliveros MCHC (RBC) [Mass/Vol] 32.9 g/dL Normal 29.9-35.2 [facility] Comment on above: Performed By: #### C K, HSTROPN, CMP, BNP #### [facility] [address] [place] [address] Dr. Tan Oliveros MCV (RBC) [Entitic vol] 75.9 fL Critically low 80.0-94.0 [facility] Comment on above: Performed By: #### C K, HSTROPN, CMP, BNP #### [facility] [address] [place] [address] Dr. Tan Oliveros MONO # 0.5 103/ul Normal 0.3-0.8 [facility] Comment on above: Performed By: #### C K, HSTROPN, CMP, BNP #### [facility] [address] [place] [address] Dr. Tan Oliveros Monocytes/100 WBC (Bld) 7.1 % Normal 1.7-12.0 [facility] Comment on above: Performed By: #### C K, HSTROPN, CMP, BNP #### [facility] [address] [place] [address] Dr. Tan Oliveros NEUT # 5.1 103/ul Normal 1.4-6.5 [facility] Comment on above: Performed By: #### C K, HSTROPN, CMP, BNP #### [facility] [address] [place] [address] Dr. Tan Oliveros Neutrophils/100 WBC (Bld) 71.1 % Normal 43.0-75.0 [facility] Comment on above: Performed By: #### C K, HSTROPN, CMP, BNP #### [facility] [address] [place] [address] Dr. Tan Oliveros Platelet mean volume (Bld) [Entitic vol] 9.3 fL Critically low 9.5-13.5 [facility] Comment on above: Performed By: #### C K, HSTROPN, CMP, BNP #### [facility] [address] [place] [address] Dr. Tan Oliveros PLT 209 103/ul Normal 150-450 [facility] Comment on above: Performed By: #### C K, HSTROPN, CMP, BNP #### [facility] [address] [place] [address] Dr. Tan Oliveros RBC 5.77 106/ul Normal 4.70-6.10 [facility] Comment on above: Performed By: #### C K, HSTROPN, CMP, BNP #### [facility] [address] [place] [address] Dr. Tan Oliveros WBC 7.2 103/ul Normal 4.0-11.0 [facility] Comment on above: Performed By: #### C K, HSTROPN, CMP, BNP #### [facility] [address] [place] [address] Dr. Tan Oliveros CULTURE URINEon 11-09-2022 CULTURE URINE Culture Observations : NO GROWTH. Normal [facility] Comment on above: Performed By: #### C K, HSTROPN, CMP, BNP #### [facility] [address] [place] [address] Dr. Tan Oliveros ER URINE PROFILEon 3 Bilirubin Ql (U) Unable to perform testing due to color interference. Abnormal NEGATIVE [facility] Comment on above: Performed By: #### C K, HSTROPN, CMP, BNP #### [facility] [address] [place] [address] Dr. Tan Oliveros Clarity (U) CLEAR Normal CLEAR [facility] Comment on above: Performed By: #### C K, HSTROPN, CMP, BNP #### [facility] [address] [place] [address] Dr. Tan Oliveros Color (U) RED Abnormal YELLOW [facility] Comment on above: Performed By: #### C K, HSTROPN, CMP, BNP #### [facility] [address] [place] [address] Dr. Tan CORDOVA A micrscopic examination will be performed if indicated. Normal [facility] Comment on above: Performed By: #### C K, HSTROPN, CMP, BNP #### [facility] [address] [address] [address] Tan Oliveros Glucose Ql (U) Unable to perform testing due to color interference. Abnormal NEGATIVE [facility] Comment on above: Performed By: #### C K, HSTROPN, CMP, BNP #### [facility] [address] [address] [address] Tan Oliveros Hemoglobin Ql (U) Unable to perform testing due to color interference. Abnormal NEGATIVE [facility] Comment on above: Performed By: #### C K, HSTROPN, CMP, BNP #### [facility] [address] [address] [address] Tan Oliveros Ketones Ql (U) Unable to perform testing due to color interference. Abnormal NEGATIVE [facility] Comment on above: Performed By: #### C K, HSTROPN, CMP, BNP #### [facility] [address] [address] [address] Tan Oliveros LEUKOCYTES Unable to perform testing due to color interference. Abnormal NEGATIVE [facility] Comment on above: Performed By: #### C K, HSTROPN, CMP, BNP #### [facility] [address] [place] [address] Dr. Tan Oliveros Nitrite Ql (U) Unable to perform testing due to color interference. Abnormal NEGATIVE [facility] Comment on above: Performed By: #### C K, HSTROPN, CMP, BNP #### [facility] [address] [address] [address] Tan Oliveros pH Unable to perform testing due to color interference. Abnormal 5-9 [facility] Comment on above: Performed By: #### C K, HSTROPN, CMP, BNP #### [facility] [address] [place] [address] Dr. Tan Oliveros SPEC GRAVITY <=1.005 Abnormal 1.005-<=1.025 [facility] Comment on above: Performed By: #### C K, HSTROPN, CMP, BNP #### [facility] [address] [place] [address] Dr. Tan Oliveros UA PROTEIN Unable to perform testing due to color interference. Normal NEGATIVE/ TRACE [facility] Comment on above: Performed By: #### C K, HSTROPN, CMP, BNP #### [facility] [address] [address] [address] Tan Oliveros UR MICRO IND INDICATED Normal [facility] Comment on above: Performed By: #### C K, HSTROPN, CMP, BNP #### [facility] [address] [address] [address] Tan Oliveros UROBILINOGEN Unable to perform testing due to color interference. Normal 0.2 - 1.0 [facility] Comment on above: Performed By: #### C K, HSTROPN, CMP, BNP #### [facility] [address] [place] [address] Dr. Tan Oliveros PROF 14(COMP METB)on 023 Albumin [Mass/Vol] 3.8 g/dL Normal 3.4-5.0 [facility] Comment on above: Performed By: #### C K, HSTROPN, CMP, BNP #### [facility] [address] [address] [address] Tan Oliveros Albumin/Globulin [Mass ratio] 1.3 {ratio} Normal [facility] Comment on above: Performed By: #### C K, HSTROPN, CMP, BNP #### [facility] [address] [address] [address] Tan Oliveros ALP [Catalytic activity/Vol] 81 U/L Normal 46-116 [facility] Comment on above: Performed By: #### C K, HSTROPN, CMP, BNP #### [facility] [address] [address] [address] Tan Oliveros ALT [Catalytic activity/Vol] 20 U/L Normal 16-63 [facility] Comment on above: Performed By: #### C K, HSTROPN, CMP, BNP #### [facility] [address] [address] [address] Tan Oliveros Anion gap [Moles/Vol] 14.3 mmol/L Normal [facility] Comment on above: Performed By: #### C K, HSTROPN, CMP, BNP #### [facility] [address] [address] [address] Tan Oliveros AST [Catalytic activity/Vol] 26 U/L Normal 15-37 [facility] Comment on above: Performed By: #### C K, HSTROPN, CMP, BNP #### [facility] [address] [place] [address] Dr. Tan Oliveros Bilirubin [Mass/Vol] 0.7 mg/dL Normal 0.2-1.0 [facility] Comment on above: Performed By: #### C K, HSTROPN, CMP, BNP #### [facility] [address] [place] [address] Dr. Tan Oliveros Calcium [Mass/Vol] 8.9 mg/dL Normal 8.5-10.1 [facility] Comment on above: Performed By: #### C K, HSTROPN, CMP, BNP #### [facility] [address] [place] [address] Dr. Tan Oliveros Chloride [Moles/Vol] 101 mmol/L Normal 98-107 [facility] Comment on above: Performed By: #### C K, HSTROPN, CMP, BNP #### [facility] [address] [place] [address] Dr. Tan Oliveros CO2 [Moles/Vol] 27.9 mmol/L Normal 21.0-32.0 [facility] Comment on above: Performed By: #### C K, HSTROPN, CMP, BNP #### [facility] [address] [place] [address] Dr. Tan Oliveros Creatinine [Mass/Vol] 1.85 mg/dL Critically high 0.70-1.30 [facility] Comment on above: Performed By: #### C K, HSTROPN, CMP, BNP #### [facility] [address] [place] [address] Dr. Tan Oliveros EGFR-AF FILIPINO 43 mL/min/1.73m2 Critically low >=60 [facility] Comment on above: Performed By: #### C K, HSTROPN, CMP, BNP #### [facility] [address] [place] [address] Dr. Tan Oliveros EGFR-NON AF FILIPINO 35 mL/min/1.73m2 Critically low >=60 [facility] Comment on above: Performed By: #### C K, HSTROPN, CMP, BNP #### [facility] [address] [place] [address] Dr. Tan Oliveros Globulin (S) [Mass/Vol] 3.0 g/dL Normal [facility] Comment on above: Performed By: #### C K, HSTROPN, CMP, BNP #### [facility] [address] [place] [address] Dr. Tan Oliveros Glucose [Mass/Vol] 114 mg/dL Critically high 74-106 [facility] Comment on above: Performed By: #### C K, HSTROPN, CMP, BNP #### [facility] [address] [place] [address] Dr. Tan Oliveros Potassium [Moles/Vol] 4.2 mmol/L Normal 3.5-5.1 [facility] Comment on above: Performed By: #### C K, HSTROPN, CMP, BNP #### [facility] [address] [place] [address] Dr. Tan Oliveros Protein [Mass/Vol] 6.8 g/dL Normal 6.4-8.2 [facility] Comment on above: Performed By: #### C K, HSTROPN, CMP, BNP #### [facility] [address] [place] [address] Dr. Tan Oliveros Sodium [Moles/Vol] 139 mmol/L Normal 136-145 [facility] Comment on above: Performed By: #### C K, HSTROPN, CMP, BNP #### [facility] [address] [place] [address] Dr. Tan Oliveros Urea nitrogen [Mass/Vol] 27.0 mg/dL Critically high 7.0-18.0 [facility] Comment on above: Performed By: #### C K, HSTROPN, CMP, BNP #### [facility] [address] [address] [address] Tan Oliveros Urea nitrogen/Creatinine [Mass ratio] 14.6 mg/mg Normal [facility] Comment on above: Performed By: #### C K, HSTROPN, CMP, BNP #### [facility] [address] [address] [address] Tan Oliveros PROTIMEon 11-09-2022 INR Coag (PPP) [Relative time] 0.99 {INR} Normal [facility] Comment on above: Performed By: #### C K, HSTROPN, CMP, BNP #### [facility] [address] [place] [address] Dr. Tan Oliveros INR GUIDELINES SEE BELOW Normal [facility] Comment on above: Result Comment: TYRELL RED INR: 2.0 - 3.0 CONDITIONS NOT LISTED BELOW 2.5 - 3.5 FOR PROSTHETIC HEART VALVE REPLACEMENT 2.5 - 3.5 RECURRENT THROMBOSIS Performed By: #### C K, HSTROPN, CMP, BNP #### [facility] [address] [place] [address] Dr. Tan Oliveros PT Coag (PPP) [Time] 10.5 s Normal 9.0-11.6 [facility] Comment on above: Performed By: #### C K, HSTROPN, CMP, BNP #### [facility] [address] [place] [address] Dr. Tan Oliveros PTTon 11-09-2022 aPTT Coag (Bld) [Time] 28.4 s Normal 22.3-36.2 [facility] Comment on above: Performed By: #### C K, HSTROPN, CMP, BNP #### [facility] [address] [place] [address] Dr. Tan Oliveros URINE MICROSCOPIC ONLYon BACTERIA TRACE Abnormal NONE SEEN [facility] Comment on above: Performed By: #### C K, HSTROPN, CMP, BNP #### [facility] [address] [address] [address] Tan Oliveros Bacteria identified Cx Nom (U) CX ALREADY ORDERED Normal [facility] Comment on above: Performed By: #### C K, HSTROPN, CMP, BNP #### [facility] [address] [place] [address] Dr. Tan Oliveros CAST NONE SEEN Normal NONE SEEN [facility] Comment on above: Performed By: #### C K, HSTROPN, CMP, BNP #### [facility] [address] [address] [address] Tan Oliveros Crystals LM Nom (Urine sed) NONE SEEN Normal NONE SEEN [facility] Comment on above: Performed By: #### C K, HSTROPN, CMP, BNP #### [facility] [address] [place] [address] Dr. Tan Oliveros Epithelial cells LM Ql (Urine sed) NONE SEEN Normal NONE SEEN /RARE [facility] Comment on above: Performed By: #### C K, HSTROPN, CMP, BNP #### [facility] [address] [place] [address] Dr. aTn Oliveros MUCOUS NONE SEEN Normal NONE SEEN [facility] Comment on above: Performed By: #### C K, HSTROPN, CMP, BNP #### [facility] [address] [place] [address] Dr. Tan Oliveros RBC (U) [#/Vol] /uL Abnormal 0-2 [facility] Comment on above: Performed By: #### C K, HSTROPN, CMP, BNP #### [facility] [address] [place] [address] Dr. Tan Oliveros WBC 0-2 Abnormal NONE SEEN [facility] Comment on above: Performed By: #### C K, HSTROPN, CMP, BNP #### [facility] [address] [place] [address] Dr. Tan Oliveros INSULINon 09-27-2022 Insulin 13.4 uIU/mL Normal 2.6-24.9 [facility] Comment on above: Performed By: #### C K, HSTROPN, CMP, BNP #### [facility] [address] [place] [address] Dr. Tan Oliveros BNPon 09-26-2022 Natriuretic peptide B (Bld) [Mass/Vol] 715.0 pg/mL Normal <=1,800.0 [facility] Comment on above: Performed By: #### C K, HSTROPN, CMP, BNP #### [facility] [address] [place] [address] Dr. Tan Oliveros CBC AUTO DIFFon 09-26-2022 BASO # 0.0 103/ul Normal 0.0-0.1 [facility] Comment on above: Performed By: #### C K, HSTROPN, CMP, BNP #### [facility] [address] [place] [address] Dr. Tan Oliveros Basophils/100 WBC (Bld) 0.7 % Normal 0.2-2.0 [facility] Comment on above: Performed By: #### C K, HSTROPN, CMP, BNP #### [facility] [address] [place] [address] Dr. Tan Oliveros EO # 0.1 103/ul Normal 0.0-0.7 [facility] Comment on above: Performed By: #### C K, HSTROPN, CMP, BNP #### [facility] [address] [place] [address] Dr. Tan Oliveros Eosinophils/100 WBC (Bld) 2.1 % Normal 0.9-7.0 [facility] Comment on above: Performed By: #### C K, HSTROPN, CMP, BNP #### [facility] [address] [place] [address] Dr. Tan Oliveros Erythrocyte distribution width (RBC) [Ratio] 15.9 % Critically high 11.0-15.0 [facility] Comment on above: Performed By: #### C K, HSTROPN, CMP, BNP #### [facility] [address] [place] [address] Dr. Tan Oliveros Hematocrit (Bld) [Volume fraction] 45.1 % Normal 42.0-54.0 [facility] Comment on above: Performed By: #### C K, HSTROPN, CMP, BNP #### [facility] [address] [address] [address] Tan Oliveros Hemoglobin (Bld) [Mass/Vol] 14.1 g/dL Normal 14.0-18.0 [facility] Comment on above: Performed By: #### C K, HSTROPN, CMP, BNP #### [facility] [address] [place] [address] Dr. Tan Oliveros IG # 0.02 10e3/ul Normal 0.00-0.03 [facility] Comment on above: Performed By: #### C K, HSTROPN, CMP, BNP #### [facility] [address] [place] [address] Dr. Tan Oliveros IG % 0.3 % Normal 0.0-0.5 [facility] Comment on above: Performed By: #### C K, HSTROPN, CMP, BNP #### [facility] [address] [place] [address] Dr. Tan Oliveros LYMPH # 0.7 103/ul Critically low 1.2-3.8 [facility] Comment on above: Performed By: #### C K, HSTROPN, CMP, BNP #### [facility] [address] [place] [address] Dr. Tan Oliveros Lymphocytes/100 WBC (Bld) 12.4 % Critically low 20.5-60.0 [facility] Comment on above: Performed By: #### C K, HSTROPN, CMP, BNP #### [facility] [address] [place] [address] Dr. Tan Oliveros MANUAL DIFF REQ NO Normal [facility] Comment on above: Performed By: #### C K, HSTROPN, CMP, BNP #### [facility] [address] [place] [address] Dr. Tan Oliveros MCH (RBC) [Entitic mass] 23.7 pg Critically low 25.9-34.0 [facility] Comment on above: Performed By: #### C K, HSTROPN, CMP, BNP #### [facility] [address] [place] [address] Dr. Tan Oliveros MCHC (RBC) [Mass/Vol] 31.3 g/dL Normal 29.9-35.2 [facility] Comment on above: Performed By: #### C K, HSTROPN, CMP, BNP #### [facility] [address] [place] [address] Dr. Tan Oliveros MCV (RBC) [Entitic vol] 75.7 fL Critically low 80.0-94.0 [facility] Comment on above: Performed By: #### C K, HSTROPN, CMP, BNP #### [facility] [address] [place] [address] Dr. Tan Oliveros MONO # 0.4 103/ul Normal 0.3-0.8 [facility] Comment on above: Performed By: #### C K, HSTROPN, CMP, BNP #### [facility] [address] [place] [address] Dr. Tan Oliveros Monocytes/100 WBC (Bld) 6.8 % Normal 1.7-12.0 [facility] Comment on above: Performed By: #### C K, HSTROPN, CMP, BNP #### [facility] [address] [place] [address] Dr. Tan Oliveros NEUT # 4.5 103/ul Normal 1.4-6.5 [facility] Comment on above: Performed By: #### C K, HSTROPN, CMP, BNP #### [facility] [address] [place] [address] Dr. Tan Oliveros Neutrophils/100 WBC (Bld) 77.7 % Critically high 43.0-75.0 [facility] Comment on above: Performed By: #### C K, HSTROPN, CMP, BNP #### [facility] [address] [place] [address] Dr. Tan Oliveros Platelet mean volume (Bld) [Entitic vol] 9.3 fL Critically low 9.5-13.5 [facility] Comment on above: Performed By: #### C K, HSTROPN, CMP, BNP #### [facility] [address] [address] [address] Tan Oliveros PLT 205 103/ul Normal 150-450 [facility] Comment on above: Performed By: #### C K, HSTROPN, CMP, BNP #### [facility] [address] [address] [address] Tan Oliveros RBC 5.96 106/ul Normal 4.70-6.10 [facility] Comment on above: Performed By: #### C K, HSTROPN, CMP, BNP #### [facility] [address] [address] [address] Tan Oliveros WBC 5.7 103/ul Normal 4.0-11.0 [facility] Comment on above: Performed By: #### C K, HSTROPN, CMP, BNP #### [facility] [address] [place] [address] Dr. Tan Oliveros FREE THYROXINE INDEX T7on FTI 2.34 Normal 1.30-4.50 [facility] Comment on above: Performed By: #### C K, HSTROPN, CMP, BNP #### [facility] [address] [place] [address] Dr. Tan Oliveros T3U 36.0 % Normal 33.0-40.0 [facility] Comment on above: Performed By: #### C K, HSTROPN, CMP, BNP #### [facility] [address] [place] [address] Dr. Tan Oliveros T4 [Mass/Vol] 6.50 ug/dL Normal 4.50-12.10 [facility] Comment on above: Performed By: #### C K, HSTROPN, CMP, BNP #### [facility] [address] [place] [address] Dr. Tan Oliveros GLYCOHEMOGLOBIN A1Con 2021 ADA RECOMMENDATION SEE BELOW Normal [facility] Comment on above: Result Comment: ADA RECOMMENDED LIMIT 4.0 - 6.0 ADA THERAPEUTIC TARGET < 7.0 ACTION SUGGESTED > 7.0 Performed By: #### C K, HSTROPN, CMP, BNP #### [facility] [address] [address] [address] Tan Oliveros Glucose [Mass/Vol] 114 mg/dL Normal [facility] Comment on above: Performed By: #### C K, HSTROPN, CMP, BNP #### [facility] [address] [address] [address] Tan Oliveros HbA1c (Bld) [Mass fraction] 5.6 % Normal 4.5-6.2 [facility] Comment on above: Performed By: #### C K, HSTROPN, CMP, BNP #### [facility] [address] [place] [address] Dr. Tan Oliveros IRONon 09-26-2022 Iron [Mass/Vol] 40.0 ug/dL Critically low 65.0-175.0 [facility] Comment on above: Performed By: #### I LASHAE, PSASC, VITAD #### [facility] [address] [place] [address] Dr. Tan Oliveros LIPID PROFILEon 09-26-2022 CHOL-HDL RATIO NORM SEE BELOW Normal [facility] [place] Comment on above: Result Comment: 3.3 - 4.4 LOW RISK 4.4 - 7.1 AVERAGE RISK 7.1 - 11.0 MODERATE RISK >11.0 HIGH RISK Performed By: #### B MANAGEMENT CONSULTANT, T7, CMP, TSH, LIPID #### [facility] [address] [address] [address] Tan Oliveros Cholesterol [Mass/Vol] 159 mg/dL Normal <=200 [facility] Comment on above: Performed By: #### B MANAGEMENT CONSULTANT, T7, CMP, TSH, LIPID #### [facility] [address] [place] [address] Dr. Tan Oliveros Cholesterol in HDL [Mass/Vol] 66 mg/dL Critically high 40-60 [facility] Comment on above: Performed By: #### B MANAGEMENT CONSULTANT, T7, CMP, TSH, LIPID #### [facility] [address] [place] [address] Dr. Tan Oliveros Cholesterol in LDL [Mass/Vol] 82.4 mg/dL Normal [facility] Comment on above: Performed By: #### B MANAGEMENT CONSULTANT, T7, CMP, TSH, LIPID #### [facility] [address] [place] [address] Dr. Tan Oliveros Cholesterol.total/C holesterol in HDL [Mass ratio] 2.4 {ratio} Normal [facility] Comment on above: Performed By: #### B MANAGEMENT CONSULTANT, T7, CMP, TSH, LIPID #### [facility] [address] [place] [address] Dr. Tan Oliveros HDL NORMAL > or = 60 mg/dl - LO W CARDIOVASCULAR RISK <40 mg/dl - HIGH CARDIOVASCULAR RISK Normal [facility] Comment on above: Performed By: #### B MANAGEMENT CONSULTANT, T7, CMP, TSH, LIPID #### [facility] [address] [place] [address] Dr. Tan Oliveros LDL CALC NORMAL SEE BELOW Normal [facility] Comment on above: Result Comment: <100 mg/dl OPTIMAL 100 - 129 mg/dl NEAR OR ABOVE OPTIMAL 130 - 159 mg/dl BORDERLINE HIGH 160 - 189 mg/dl HIGH >190 mg/dl VERY HIGH Performed By: #### B MANAGEMENT CONSULTANT, T7, CMP, TSH, LIPID #### [facility] [address] [place] [address] Dr. Tan Oliveros Triglyceride [Mass/Vol] 53 mg/dL Normal <=150 [facility] Comment on above: Performed By: #### B MANAGEMENT CONSULTANT, T7, CMP, TSH, LIPID #### [facility] [address] [place] [address] Dr. Tan Oliveros VLDL CALC 10.6 mg/dL Normal [facility] Comment on above: Performed By: #### B MANAGEMENT CONSULTANT, T7, CMP, TSH, LIPID #### [facility] [address] [place] [address] Dr. Tan Oliveros PROF 14(COMP METB)on 022 Albumin [Mass/Vol] 3.9 g/dL Normal 3.4-5.0 [facility] Comment on above: Performed By: #### C K, HSTROPN, CMP, BNP #### [facility] [address] [place] [address] Dr. Tan Oliveros Albumin/Globulin [Mass ratio] 1.2 {ratio} Normal [facility] Comment on above: Performed By: #### C K, HSTROPN, CMP, BNP #### [facility] [address] [place] [address] Dr. Tan Oliveros ALP [Catalytic activity/Vol] 94 U/L Normal 46-116 [facility] Comment on above: Performed By: #### C K, HSTROPN, CMP, BNP #### [facility] [address] [place] [address] Dr. Tan Oliveros ALT [Catalytic activity/Vol] 17 U/L Normal 16-63 [facility] Comment on above: Performed By: #### C K, HSTROPN, CMP, BNP #### [facility] [address] [place] [address] Dr. Tan Oliveros Anion gap [Moles/Vol] 12.9 mmol/L Normal [facility] Comment on above: Performed By: #### C K, HSTROPN, CMP, BNP #### [facility] [address] [place] [address] Dr. Tan Oliveros AST [Catalytic activity/Vol] 20 U/L Normal 15-37 [facility] Comment on above: Performed By: #### C K, HSTROPN, CMP, BNP #### [facility] [address] [place] [address] Dr. Tan Oliveros Bilirubin [Mass/Vol] 0.4 mg/dL Normal 0.2-1.0 [facility] Comment on above: Performed By: #### C K, HSTROPN, CMP, BNP #### [facility] [address] [place] [address] Dr. Tan Oliveros Calcium [Mass/Vol] 9.1 mg/dL Normal 8.5-10.1 [facility] Comment on above: Performed By: #### C K, HSTROPN, CMP, BNP #### [facility] [address] [place] [address] Dr. Tan Oliveros Chloride [Moles/Vol] 106 mmol/L Normal 98-107 [facility] Comment on above: Performed By: #### C K, HSTROPN, CMP, BNP #### [facility] [address] [place] [address] Dr. Tan Oliveros CO2 [Moles/Vol] 29.1 mmol/L Normal 21.0-32.0 [facility] Comment on above: Performed By: #### C K, HSTROPN, CMP, BNP #### [facility] [address] [place] [address] Dr. Tan Oliveros Creatinine [Mass/Vol] 1.98 mg/dL Critically high 0.70-1.30 [facility] Comment on above: Performed By: #### C K, HSTROPN, CMP, BNP #### [facility] [address] [place] [address] Dr. Tan Oliveros EGFR-AF FILIPINO 39 mL/min/1.73m2 Critically low >=60 [facility] Comment on above: Performed By: #### C K, HSTROPN, CMP, BNP #### [facility] [address] [place] [address] Dr. Tan Oliveros EGFR-NON AF FILIPINO 32 mL/min/1.73m2 Critically low >=60 [facility] Comment on above: Performed By: #### C K, HSTROPN, CMP, BNP #### [facility] [address] [place] [address] Dr. Tan Oliveros Globulin (S) [Mass/Vol] 3.3 g/dL Normal [facility] Comment on above: Performed By: #### C K, HSTROPN, CMP, BNP #### [facility] [address] [place] [address] Dr. Tan Oliveros Glucose [Mass/Vol] 108 mg/dL Critically high 74-106 [facility] Comment on above: Performed By: #### C K, HSTROPN, CMP, BNP #### [facility] [address] [place] [address] Dr. Tan Oliveros Potassium [Moles/Vol] 4.0 mmol/L Normal 3.5-5.1 [facility] Comment on above: Performed By: #### C K, HSTROPN, CMP, BNP #### [facility] [address] [address] [address] Tan Oliveros Protein [Mass/Vol] 7.2 g/dL Normal 6.4-8.2 [facility] Comment on above: Performed By: #### C K, HSTROPN, CMP, BNP #### [facility] [address] [place] [address] Dr. Tan Oliveros Sodium [Moles/Vol] 144 mmol/L Normal 136-145 [facility] Comment on above: Performed By: #### C K, HSTROPN, CMP, BNP #### [facility] [address] [place] [address] Dr. Tan Oliveros Urea nitrogen [Mass/Vol] 43.0 mg/dL Critically high 7.0-18.0 [facility] Comment on above: Performed By: #### C K, HSTROPN, CMP, BNP #### [facility] [address] [place] [address] Dr. Tan Oliveros Urea nitrogen/Creatinine [Mass ratio] 21.7 mg/mg Normal [facility] Comment on above: Performed By: #### C K, HSTROPN, CMP, BNP #### [facility] [address] [place] [address] Dr. Tan Oliveros TSHon 09-26-2022 TSH 2.331 uIU/mL Normal 0.358-3.740 [facility] Comment on above: Performed By: #### C K, HSTROPN, CMP, BNP #### [facility] [address] [place] [address] Dr. Tan Oliveros VITAMIN D 25 OHon 09-26-2022 VIT D 25-OH 40.9 ng/mL Normal [facility] Comment on above: Performed By: #### I LASHAE, PSASC, VITAD #### [facility] [address] [place] [address] Dr. Tan Oliveros VIT D RANGES SEE BELOW Normal [facility] Comment on above: Result Comment: <20 ng/mL Vit D deficient 20 - <30 ng/mL Vit D insufficient 30 - 100 ng/mL Vit D sufficient >100 ng/mL Potential Toxicity Performed By: #### I LASHAE, PSASC, VITAD #### [facility] [address] [place], [place] [address] Dr. Tan Oliveros URINALYSIS, REFLEX MICROSCOP ICon 09-12-2022 Bilirubin Ql (U) Negative Negative [facility] Clarity (Unsp spec) Cloudy Abnormal Clear [facility] Color (U) Light [place] Abnormal Yellow [facility] Glucose Test strip (U) [Mass/Vol] 4+ Abnormal Negative [facility] Hemoglobin Ql (U) 3+ Abnormal Negative [facility] Hyaline casts (Urine sed) [#/Area] 1-3 /LPF Abnormal 0 /LPF [facility] Ketones Ql (U) Negative Negative [facility] Leukocyte esterase Test strip Ql (U) Negative Negative [facility] Nitrite Ql (U) Negative Negative [facility] pH (U) 5.5 [pH] 5.0 - 8.0 [facility] Protein (U) [Mass/Vol] 1+ Abnormal Negative [facility] RBC LM.HPF (Urine sed) [#/Area] /[HPF] Abnormal 0-3 /HPF [facility] Specific gravity (U) [Rel density] 1.019 1.005 - 1.030 [facility] Urobilinogen Ql (U) Negative Negative [facility] WBC LM.HPF (Urine sed) [#/Area] 0-5 /HPF 0-5 /HPF [facility] URINE CULTUREon 03-17-2022 Bacteria identified Cx Nom (U) No growth (<1,000 CFU/ml) [facility] TYPE AND SCREEN,[address] [facility] HIstorical Ab Scr Status Negative [facility] Rh Nom (Bld) Positive [facility] CT UROGRAM WO/W IVCONon -2 [facility] Dipstick and Microscopicon 0 02-23-2019 Appearance Nom (U) Cloudy Critically abnormal Clear [facility] Comment on above: Order Comment: Name Collection Type:: Clean-Voided Midstream Performed By: #### A JAMAR MALDONADO #### [facility] [address] [place] [address] Bacteria LM.HPF #/area (Urine sed) None Seen Normal None Seen [facility] Comment on above: Order Comment: Name Collection Type:: Clean-Voided Midstream Performed By: #### A DDONUAPLUS, CUU #### [address] Bilirubin,Urine Negative Normal Negative [facility] Comment on above: Order Comment: Name Collection Type:: Clean-Voided Midstream Performed By: #### A DDONUAPLUS, CUU #### [address] Color Nom (U) Yellow Normal Yellow [facility] Comment on above: Order Comment: Name Collection Type:: Clean-Voided Midstream Performed By: #### A DDONUAPLUS, CUU #### [address] Glucose Ql (U) Normal Normal Normal [facility] Comment on above: Order Comment: Name Collection Type:: Clean-Voided Midstream Performed By: #### A DDONUAPLUS, CUU #### [address] Hyaline Casts,Urine 0-8 Normal 0-8 [facility] Comment on above: Order Comment: Name Collection Type:: Clean-Voided Midstream Result Comment: PERF ORMED BY: [place] [address] PATHOLOGIST RESPIRATORY PRACTITIONER LEONARD MCCLAIN M.D. Performed By: #### A DDONUAPLUS, CUU #### [facility] [address] [place] [address] Ketones Ql (U) Negative Normal Negative [facility] Comment on above: Order Comment: Name Collection Type:: Clean-Voided Midstream Performed By: #### A DDONUAPLUS, CUU #### [address] Leukocyte esterase Test strip Ql (U) 4+ High Negative [facility] Comment on above: Order Comment: Name Collection Type:: Clean-Voided Midstream Performed By: #### A DDONUAPLUS, CUU #### [place] [address] [place] Nitrite,Urine Negative Normal Negative [facility] Comment on above: Order Comment: Name Collection Type:: Clean-Voided Midstream Performed By: #### A DDONUAPLUS, CUU #### [address] Occult Blood,Urine 3+ High Negative [facility] Comment on above: Order Comment: Name Collection Type:: Clean-Voided Midstream Result Comment: PERF ORMED BY: [place] [address] PATHOLOGIST RESPIRATORY PRACTITIONER LEONARD MCCLAIN M.D. Performed By: #### A DDONUAPLUS, CUU #### [address] pH (U) 7.0 [pH] Normal 5.0-9.[address] [facility] Comment on above: Order Comment: Name Collection Type:: Clean-Voided Midstream Performed By: #### A DDONUAPLUS, CUU #### [address] Protein mass conc (U) 30 mg/dL High Negative [facility] Comment on above: Order Comment: Name Collection Type:: Clean-Voided Midstream Performed By: #### A DDONUAPLUS, CUU #### [place] [address] [place] RBC LM.HPF #/area (Urine sed) Innumerable High 0-[address] [facility] Comment on above: Order Comment: Name Collection Type:: Clean-Voided Midstream Performed By: #### A DDONUAPLUS, CUU #### [address] Specificy [place],Urine 1.013 Normal 1.001-1.[address] [facility] Comment on above: Order Comment: Name Collection Type:: Clean-Voided Midstream Performed By: #### A DDONUAPLUS, CUU #### [facility] [address] [place] [address] Squamous Epithelial Cell,Urine None Seen Normal 0-[address] [facility] Comment on above: Order Comment: Name Collection Type:: Clean-Voided Midstream Performed By: #### A DDONUAPLUS, CUU #### [facility] [address] [place] [address] Urobilinogen,Urine Normal Normal Normal [facility] Comment on above: Order Comment: Name Collection Type:: Clean-Voided Midstream Performed By: #### A DDONUAPLUS, CUU #### [facility] [address] [place] [address] WBC LM.HPF #/area (Urine sed) Innumerable High 0-[address] [facility] Comment on above: Order Comment: Name Collection Type:: Clean-Voided Midstream Performed By: #### A DDONUAPLUS, CUU #### [facility] [address] [place] [address] Taj 02-23-2019 L -- ---- Specimen: [id number] Received: 02/23/19 Status: MALCOLM Mendez Num: [id number] Spec Type: Cytology Subm Dr: Jian Rodriguez MD Tissues: A CYTOSLIDE (URINE) Procedures: Pap Stain/2 ---- Patient Age/Sex Location Account Attending Physician ---- Juan Jose Austin 78/M [place] [id number] Jian Rodriguez MD ---- SPEC NUM: [id number] RECD: 02/23/19 STATUS: MALCOLM MENDEZ NUM: [id number] ALEKSANDR: 02/23/19 [facility] DR: Jian Rodriguez MD ENTERED: 02/23/19 [facility] [address]: FARRAH TYPE: Cytology DEPT: [facility] ORDERED: Pap Stain/2 ORDERED: Pap Stain/2 [...] examined. Microscopic examination supports the pathologic diagnosis. [id number] ---- ---- Specimen: [id number] Received: 02/23/19 Status: MALCOLM Mendez Num: [id number] Spec Type: Cytology Subm Dr: Jian Rodriguez MD Tissues: A CYTOSLIDE (URINE) Procedures: Pap Stain/2 ---- Patient: Juan Jose Austin Sr [id number] (Continued) ---- Signed (signature on file) Julio Cesar Carr MD 02/24/19 1700 [facility] Urine Cultureon 02-23-2019 Bacteria identified Cx Nom (U) ORGANISM: Pseudomonas aeruginosa (O:PSEAER) [place] Count >100,000 100,000 CFU/ML OTHER MIXED BACTERIAL [...] RESISTANT TO ALL B-LACTAM DRUGS. PERFORMED BY: [place] [address] PATHOLOGIST RESPIRATORY PRACTITIONER LEONARD MCCLAIN M.D. [facility] Comment on above: Performed By: #### A JAMAR MALDONADO #### [address] Vital Signs Date Time Vital Sign Value Performing Clinician Facility 12-20-2023 13:09-0500 Body height 162.6 cm Wayne Chavez APRN.CNP Work Phone: [facility] 12-20-2023 13:09-0500 Body temperature 97.2 [degF] Wayne Chavez APRN.CNP Work Phone: [facility] 12-20-2023 13:09-0500 Body weight 63.1 kg Wayne Chavez APRN.CNP Work Phone: [facility] 12-20-2023 13:09-0500 Diastolic blood pressure 49 mm[Hg] Wayne Chavez APRN.CNP Work Phone: [facility] 12-20-2023 13:09-0500 Heart rate 66 /min Wayne Chavez APRN.CNP Work Phone: [facility] 12-20-2023 13:09-0500 Respiratory rate 16 /min Wayne Chavez APRN.WORK MEASUREMENT ENGINEER Work Phone: [facility] 12-20-2023 13:09-0500 SaO2% (BldA) [Mass fraction] 97 % Wayne Chavez APRN.WORK MEASUREMENT ENGINEER Work Phone: [facility] 12-20-2023 13:09-0500 Systolic blood pressure 119 mm[Hg] Wayne Chavez APRN.WORK MEASUREMENT ENGINEER Work Phone: [facility] 11-29-2023 12:51-0500 Body height 162.6 cm Caesar Vazquez MD Work Phone: [facility] 11-29-2023 12:51-0500 Body temperature 98.01 [degF] Caesar Vazquez MD Work Phone: [facility] 11-29-2023 12:51-0500 Body weight 67.9 kg Caesar Vazquez MD Work Phone: [facility] 11-29-2023 12:51-0500 Diastolic blood pressure 50 mm[Hg] Caesar Vazquez MD Work Phone: [facility] 11-29-2023 12:51-0500 Heart rate 71 /min Caesar Vazquez MD Work Phone: [facility] 11-29-2023 12:51-0500 Respiratory rate 16 /min Caesar Vazquez MD Work Phone: [facility] 11-29-2023 12:51-0500 SaO2% (BldA) [Mass fraction] 98 % Caesar Vazquez MD Work Phone: [facility] 11-29-2023 12:51-0500 Systolic blood pressure 100 mm[Hg] Caesar Vazquez MD Work Phone: [facility] 09-19-2023 14:50-0500 Diastolic blood pressure 62 mm[Hg] Chair Fam Work Phone: [facility] 09-19-2023 14:50-0500 Systolic blood pressure 114 mm[Hg] Chair Fam Work Phone: [facility] 08-29-2023 12:37-0500 Body height 162.6 cm Caesar Vazquez MD Work Phone: [facility] 08-29-2023 12:37-0500 Body temperature 97.5 [degF] Caesar Vazquez MD Work Phone: [facility] 08-29-2023 12:37-0500 Body weight 75.75 kg Caesar Vazquez MD Work Phone: [facility] 08-29-2023 12:37-0500 Diastolic blood pressure 58 mm[Hg] Caesar Vazquez MD Work Phone: [facility] 08-29-2023 12:37-0500 Heart rate 60 /min Caesar Vazquez MD Work Phone: [facility] 08-29-2023 12:37-0500 Respiratory rate 18 /min Caesar Vazquez MD Work Phone: [facility] 08-29-2023 12:37-0500 SaO2% (BldA) [Mass fraction] 97 % Caesar Vazquez MD Work Phone: [facility] 08-29-2023 12:37-0500 Systolic blood pressure 124 mm[Hg] Caesar Vazquez MD Work Phone: [facility] 07-18-2023 13:14-0400 Body height 162.6 cm Caesar Vazquez MD Work Phone: [facility] 07-18-2023 13:14-0400 Body temperature 97.59 [degF] Caesar Vazquez MD Work Phone: [facility] 07-18-2023 13:14-0400 Body weight 80.74 kg Caesar Vazquez MD Work Phone: [facility] 07-18-2023 13:14-0400 Diastolic blood pressure 52 mm[Hg] Caesar Vazquez MD Work Phone: [facility] 07-18-2023 13:14-0400 Heart rate 61 /min Caesar Vazquez MD Work Phone: [facility] 07-18-2023 13:14-0400 Respiratory rate 18 /min Caesar Vazquez MD Work Phone: [facility] 07-18-2023 13:14-0400 SaO2% (BldA) [Mass fraction] 96 % Caesar Vazquez MD Work Phone: [facility] 07-18-2023 13:14-0400 Systolic blood pressure 129 mm[Hg] Caesar Vazquez MD Work Phone: [facility] 06-27-2023 13:02-0400 Body height 162.6 cm Wayne Chavez CONCRETE PIPE MACHINE OPERATOR.WORK MEASUREMENT ENGINEER Work Phone: [facility] 06-27-2023 13:02-0400 Body temperature 97 [degF] Wayne Chavez CONCRETE PIPE MACHINE OPERATOR.WORK MEASUREMENT ENGINEER Work Phone: [facility] 06-27-2023 13:02-0400 Body weight 81.19 kg Wayne Chavez CONCRETE PIPE MACHINE OPERATOR.WORK MEASUREMENT ENGINEER Work Phone: [facility] 06-27-2023 13:02-0400 Diastolic blood pressure 56 mm[Hg] Wayne Chavez CONCRETE PIPE MACHINE OPERATOR.WORK MEASUREMENT ENGINEER Work Phone: [facility] 06-27-2023 13:02-0400 Heart rate 61 /min Wayne Chavez CONCRETE PIPE MACHINE OPERATOR.WORK MEASUREMENT ENGINEER Work Phone: [facility] 06-27-2023 13:02-0400 Respiratory rate 16 /min Wayne Chavez CONCRETE PIPE MACHINE OPERATOR.WORK MEASUREMENT ENGINEER Work Phone: [facility] 06-27-2023 13:02-0400 SaO2% (BldA) [Mass fraction] 99 % Wayne Chavez CONCRETE PIPE MACHINE OPERATOR.WORK MEASUREMENT ENGINEER Work Phone: [facility] 06-27-2023 13:02-0400 Systolic blood pressure 122 mm[Hg] Wayne Chavez CONCRETE PIPE MACHINE OPERATOR.WORK MEASUREMENT ENGINEER Work Phone: [facility] 06-06-2023 13:31-0400 Body height 162.6 cm Caesar Vazquez MD Work Phone: [facility] 06-06-2023 13:31-0400 Body temperature 97.81 [degF] Caesar Vazquez MD Work Phone: [facility] 06-06-2023 13:31-0400 Body weight 80.47 kg Caesar Vazquez MD Work Phone: [facility] 06-06-2023 13:31-0400 Diastolic blood pressure 63 mm[Hg] Caesar Vazquez MD Work Phone: [facility] 06-06-2023 13:31-0400 Heart rate 60 /min Caesar Vazquez MD Work Phone: [facility] 06-06-2023 13:31-0400 Respiratory rate 16 /min Caesar Vazquez MD Work Phone: [facility] 06-06-2023 13:31-0400 SaO2% (BldA) [Mass fraction] 99 % Caesar Vazquez MD Work Phone: [facility] 06-06-2023 13:31-0400 Systolic blood pressure 131 mm[Hg] Caesar Vazquez MD Work Phone: [facility] 05-16-2023 13:02-0400 Body height 162.6 cm Caesar Vazquez MD Work Phone: [facility] 05-16-2023 13:02-0400 Body temperature 97.81 [degF] Caesar Vazquez MD Work Phone: [facility] 05-16-2023 13:02-0400 Body weight 80.65 kg Caesar Vazquez MD Work Phone: [facility] 05-16-2023 13:02-0400 Diastolic blood pressure 55 mm[Hg] Caesar Vazquez MD Work Phone: [facility] 05-16-2023 13:02-0400 Heart rate 62 /min Caesar Vazquez MD Work Phone: [facility] 05-16-2023 13:02-0400 Respiratory rate 18 /min Caesar Vazquez MD Work Phone: [facility] 05-16-2023 13:02-0400 SaO2% (BldA) [Mass fraction] 100 % Caesar Vazquez MD Work Phone: [facility] 05-16-2023 13:02-0400 Systolic blood pressure 116 mm[Hg] Caesar Vazquez MD Work Phone: [facility] 04-25-2023 12:54-0400 Body height 162.6 cm Wayne Chavez APRN.WORK MEASUREMENT ENGINEER Work Phone: [facility] 04-25-2023 12:54-0400 Body temperature 97.39 [degF] Wayne Chavez APRN.WORK MEASUREMENT ENGINEER Work Phone: [facility] 04-25-2023 12:54-0400 Body weight 80.74 kg Wayne Chavez APRN.WORK MEASUREMENT ENGINEER Work Phone: [facility] 04-25-2023 12:54-0400 Diastolic blood pressure 61 mm[Hg] Wayne Chavez APRN.WORK MEASUREMENT ENGINEER Work Phone: [facility] 04-25-2023 12:54-0400 Heart rate 66 /min Wayne Chavez APRN.WORK MEASUREMENT ENGINEER Work Phone: [facility] 04-25-2023 12:54-0400 Respiratory rate 16 /min Wayne Chavez APRN.WORK MEASUREMENT ENGINEER Work Phone: [facility] 04-25-2023 12:54-0400 SaO2% (BldA) [Mass fraction] 97 % Wayne Chavez APRN.WORK MEASUREMENT ENGINEER Work Phone: [facility] 04-25-2023 12:54-0400 Systolic blood pressure 140 mm[Hg] Wayne Chavez APRN.WORK MEASUREMENT ENGINEER Work Phone: [facility] 04-04-2023 10:25-0400 Body height 162.6 cm Wayne Chavez APRN.WORK MEASUREMENT ENGINEER Work Phone: [facility] 04-04-2023 10:25-0400 Body temperature 97.7 [degF] Wayne Chavez APRN.WORK MEASUREMENT ENGINEER Work Phone: [facility] 04-04-2023 10:25-0400 Body weight 80.29 kg Wayne Chavez APRN.WORK MEASUREMENT ENGINEER Work Phone: [facility] 04-04-2023 10:25-0400 Diastolic blood pressure 62 mm[Hg] Wayne Chavez APRN.WORK MEASUREMENT ENGINEER Work Phone: [facility] 04-04-2023 10:25-0400 Heart rate 67 /min Wayne Chavez APRN.WORK MEASUREMENT ENGINEER Work Phone: [facility] 04-04-2023 10:25-0400 Respiratory rate 16 /min Wayne Chavez APRN.WORK MEASUREMENT ENGINEER Work Phone: [facility] 04-04-2023 10:25-0400 SaO2% (BldA) [Mass fraction] 97 % Wayne Chavez APRN.WORK MEASUREMENT ENGINEER Work Phone: [facility] 04-04-2023 10:25-0400 Systolic blood pressure 139 mm[Hg] Wayne Chavez APRN.WORK MEASUREMENT ENGINEER Work Phone: [facility] 03-12-2023 10:00-0400 Body weight 82.56 kg Shawn Nelson Other [facility] Other 03-12-2023 10:00-0400 Diastolic blood pressure 74 mm[Hg] Shawn Nelson Other [facility] Other 03-12-2023 10:00-0400 Systolic blood pressure 128 mm[Hg] Shawn Nelson Other [facility] Other 01-31-2023 08:17-0400 Body height 162.6 cm Caesar Vazquez MD Work Phone: [facility] 01-31-2023 08:17-0400 Body temperature 97.5 [degF] Caesar Vazquez MD Work Phone: [facility] 01-31-2023 08:17-0400 Body weight 82.19 kg Caesar Vazquez MD Work Phone: [facility] 01-31-2023 08:17-0400 Diastolic blood pressure 59 mm[Hg] Caesar Vazquez MD Work Phone: [facility] 01-31-2023 08:17-0400 Heart rate 59 /min Caesar Vazquez MD Work Phone: [facility] 01-31-2023 08:17-0400 Respiratory rate 16 /min Caesar Vazquez MD Work Phone: [facility] 01-31-2023 08:17-0400 SaO2% (BldA) [Mass fraction] 97 % Caesar Vazquez MD Work Phone: [facility] 01-31-2023 08:17-0400 Systolic blood pressure 142 mm[Hg] Caesar Vazquez MD Work Phone: [facility] 01-02-2023 14:58-0400 Body height 167.6 cm Caesar Vazquez MD Work Phone: [facility] 01-02-2023 14:58-0400 Body temperature 97.3 [degF] Caesar Vazquez MD Work Phone: [facility] 01-02-2023 14:58-0400 Body weight 80.2 kg Caesar Vazquez MD Work Phone: [facility] 01-02-2023 14:58-0400 Diastolic blood pressure 58 mm[Hg] Caesar Vazquez MD Work Phone: [facility] 03-22-2023 14:58-0400 Heart rate 63 /min Caesar Vazquez MD Work Phone: [facility] 01-02-2023 14:58-0400 Respiratory rate 16 /min Caesar Vazquez MD Work Phone: [facility] 01-02-2023 14:58-0400 SaO2% (BldA) [Mass fraction] 97 % Caesar Vazquez MD Work Phone: [facility] 01-02-2023 14:58-0400 Systolic blood pressure 133 mm[Hg] Caesar Vazquez MD Work Phone: [facility] 12-05-2022 09:20-0500 Blood Pressure Location Jian RODRIGUEZ [facility] 12-05-2022 09:20-0500 Diastolic blood pressure 70 mm[Hg] Jian RODRIGUEZ [facility] 12-05-2022 09:20-0500 Heart rate 59 /min Jianrashida RODRIGUEZ [facility] 12-05-2022 09:20-0500 Systolic blood pressure 146 mm[Hg] Jian RODRIGUEZ [facility] 11-26-2022 08:40-0500 Body height 167.6 cm Caesar Vazquez MD Work Phone: [facility] 11-26-2022 08:40-0500 Body temperature 97.7 [degF] Caesar Vazquez MD Work Phone: [facility] 11-26-2022 08:40-0500 Body weight 77.47 kg Caesar Vazquez MD Work Phone: [facility] 11-26-2022 08:40-0500 Diastolic blood pressure 63 mm[Hg] Caesar Vazquez MD Work Phone: [facility] 11-26-2022 08:40-0500 Heart rate 60 /min Caesar Vazquez MD Work Phone: [facility] 11-26-2022 08:40-0500 Respiratory rate 16 /min Caesar Vazquez MD Work Phone: [facility] 11-26-2022 08:40-0500 SaO2% (BldA) [Mass fraction] 97 % Caesar Vazquez MD Work Phone: [facility] 11-26-2022 08:40-0500 Systolic blood pressure 131 mm[Hg] Caesar Vazquez MD Work Phone: [facility] 09-12-2022 14:05-0500 Body height 167.6 cm Nicholas Saenz MD Work Phone: [facility] 09-12-2022 14:05-0500 Body weight 78.93 kg Nicholas Saenz MD Work Phone: [facility] 09-12-2022 14:05-0500 Diastolic blood pressure 79 mm[Hg] Nicholas Saezn MD Work Phone: [facility] 09-12-2022 14:05-0500 Heart rate 79 /min Nicholas Saenz MD Work Phone: [facility] 09-12-2022 14:05-0500 Systolic blood pressure 168 mm[Hg] Nicholas Saenz MD Work Phone: [facility] 09-12-2022 10:56-0500 Diastolic blood pressure 72 mm[Hg] Pacc 4 Work Phone: [facility] 09-12-2022 10:56-0500 Systolic blood pressure 170 mm[Hg] Pacc 4 Work Phone: [facility] 09-12-2022 10:55-0500 Body height 167.6 cm Pacc 4 Work Phone: [facility] 09-12-2022 10:55-0500 Body temperature 98.29 [degF] Pacc 4 Work Phone: [facility] 09-12-2022 10:55-0500 Body weight 78.93 kg Pac 4 Work Phone: [facility] 09-12-2022 10:55-0500 Heart rate 66 /min Pac 4 Work Phone: [facility] 09-12-2022 10:55-0500 SaO2% (BldA) [Mass fraction] 96 % Pac 4 Work Phone: [facility] 03-08-2022 11:15-0400 Body weight 81.65 kg Augusto Sauceda Other [facility] Other 03-05-2022 12:37-0400 Body height 163.6 cm Soren Perea MD Work Phone: [facility] 03-05-2022 12:37-0400 Body temperature 97.81 [degF] Soren Perea MD Work Phone: [facility] 03-05-2022 12:37-0400 Body weight 83.01 kg Soren Perea MD Work Phone: [facility] 03-05-2022 12:37-0400 Diastolic blood pressure 61 mm[Hg] Soren Perea MD Work Phone: [facility] 03-05-2022 12:37-0400 Heart rate 56 /min Soren Perea MD Work Phone: [facility] 03-05-2022 12:37-0400 Respiratory rate 16 /min Soren Perea MD Work Phone: [facility] 03-05-2022 12:37-0400 SaO2% (BldA) [Mass fraction] 97 % Soren Perea MD Work Phone: [facility] 03-05-2022 12:37-0400 Systolic blood pressure 141 mm[Hg] Soren Perea MD Work Phone: [facility] 02-19-2022 12:37-0400 Body height 163.6 cm Corazon Alissa PA-C Work Phone: [facility] 02-19-2022 12:37-0400 Body temperature 97.59 [degF] Corazon Alissa PA-C Work Phone: [facility] 02-19-2022 12:37-0400 Body weight 82.19 kg Corazon Alissa PA-C Work Phone: [facility] 02-19-2022 12:37-0400 Diastolic blood pressure 59 mm[Hg] Corazon Alissa PA-C Work Phone: [facility] 02-19-2022 12:37-0400 Heart rate 67 /min Corazon Alissa PA-C Work Phone: [facility] 02-19-2022 12:37-0400 Respiratory rate 18 /min Corazon Alissa PA-C Work Phone: [facility] 02-19-2022 12:37-0400 SaO2% (BldA) [Mass fraction] 100 % Corazon Alissa PA-C Work Phone: [facility] 02-19-2022 12:37-0400 Systolic blood pressure 127 mm[Hg] Corazon Alissa PA-C Work Phone: [facility] 02-12-2022 12:56-0400 Body height 163.6 cm Soren Perea MD Work Phone: [facility] 02-12-2022 12:56-0400 Body temperature 97.39 [degF] Soren Perea MD Work Phone: [facility] 02-12-2022 12:56-0400 Body weight 84.46 kg Soren Perea MD Work Phone: [facility] 02-12-2022 12:56-0400 Diastolic blood pressure 62 mm[Hg] Soren Perea MD Work Phone: [facility] 02-12-2022 12:56-0400 Heart rate 52 /min Soren Perea MD Work Phone: [facility] 02-12-2022 12:56-0400 Respiratory rate 18 /min Soren Perea MD Work Phone: [facility] 02-12-2022 12:56-0400 SaO2% (BldA) [Mass fraction] 99 % Soren Perea MD Work Phone: [facility] 02-12-2022 12:56-0400 Systolic blood pressure 149 mm[Hg] Soren Perea MD Work Phone: [facility] 02-05-2022 12:40-0400 Body height 163.6 cm Soren Perea MD Work Phone: [facility] 02-05-2022 12:40-0400 Body temperature 97.59 [degF] Soren Perea MD Work Phone: [facility] 02-05-2022 12:40-0400 Body weight 84.91 kg Soren Perea MD Work Phone: [facility] 02-05-2022 12:40-0400 Diastolic blood pressure 62 mm[Hg] Soren Perea MD Work Phone: [facility] 02-05-2022 12:40-0400 Heart rate 57 /min Soren Perea MD Work Phone: [facility] 02-05-2022 12:40-0400 Respiratory rate 18 /min Soren Perea MD Work Phone: [facility] 02-05-2022 12:40-0400 SaO2% (BldA) [Mass fraction] 100 % Soren Perea MD Work Phone: [facility] 02-05-2022 12:40-0400 Systolic blood pressure 154 mm[Hg] Soren Perea MD Work Phone: [facility] 01-15-2022 12:35-0400 Body height 163.6 cm Corazon Alissa PA-C Work Phone: [facility] 01-15-2022 12:35-0400 Body temperature 98.1 [degF] Corazon Alissa PA-C Work Phone: [facility] 01-15-2022 12:35-0400 Body weight 84.28 kg Corazon Alissa PA-C Work Phone: [facility] 01-15-2022 12:35-0400 Diastolic blood pressure 63 mm[Hg] Corazon Alissa PA-C Work Phone: [facility] 01-15-2022 12:35-0400 Heart rate 63 /min Corazon Alissa PA-C Work Phone: [facility] 01-15-2022 12:35-0400 Respiratory rate 16 /min Corazon Alissa PA-C Work Phone: [facility] 01-15-2022 12:35-0400 SaO2% (BldA) [Mass fraction] 98 % Corazon Alissa PA-C Work Phone: [facility] 01-15-2022 12:35-0400 Systolic blood pressure 145 mm[Hg] Corazon Alissa PA-C Work Phone: [facility] 01-08-2022 09:09-0400 Body height 163.6 cm Soren Perea MD Work Phone: [facility] 01-08-2022 09:09-0400 Body temperature 97.11 [degF] Soren Perea MD Work Phone: [facility] 01-08-2022 09:09-0400 Body weight 83.55 kg Soren Perea MD Work Phone: [facility] 01-08-2022 09:09-0400 Diastolic blood pressure 80 mm[Hg] Soren Perea MD Work Phone: [facility] 01-08-2022 09:09-0400 Heart rate 62 /min Soren Perea MD Work Phone: [facility] 01-08-2022 09:09-0400 Respiratory rate 18 /min Soren Perea MD Work Phone: [facility] 01-08-2022 09:09-0400 SaO2% (BldA) [Mass fraction] 98 % Soren Perea MD Work Phone: [facility] 01-08-2022 09:09-0400 Systolic blood pressure 144 mm[Hg] Soren Perea MD Work Phone: 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); CKD (chronic kidney disease), stage V (HCC); Abnormal weight loss; Malignant neoplasm of urinary bladder, unspecified site (HCC) Start: 12-20-2023 End: 12-20-2023 Patient encounter procedure Wayne Chavez CONCRETE PIPE MACHINE OPERATOR.WORK MEASUREMENT ENGINEER Work Phone: [facility] Start: 12-09-2023 End: 12-09-2023 ambulatory [facility] Start: 11-29-2023 End: 11-29-2023 ambulatory CAESAR VAZQUEZ Facility:[facility] Start: 11-29-2023 End: 11-29-2023 ambulatory Chair [...] encounter Caesar garcía MD Work Phone: [facility] Start: 11-02-2023 End: 11-03-2023 Emergency department patient visit [facility] Start: 10-10-2023 End: 10-10-2023 ambulatory [facility] Facility:[facility] Start: 10-10-2023 End: 10-10-2023 ambulatory YOAN SNEED Facility:[facility] Start: 09-19-2023 End: 09-20-2023 ambulatory Chair Gala Fam Work Phone: Hematology/Oncology Comment on above: 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); Malignant neoplasm of right kidney, except renal pelvis (HCC); Malignant neoplasm of ureter, unspecified laterality (HCC) Start: 08-29-2023 End: [facility] Start: 08-29-2023 End: 08-29-2023 Office outpatient visit 25 minutes Caesar Vazquez MD Work Phone: Hematology/Oncology Comment on above: 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); Malignant neoplasm of ureter, unspecified laterality (HCC); Malaise and fatigue Start: 08-23-2023 End: 08-23-2023 ambulatory CAESAR VAZQUEZ Facility:[facility] Start: 08-20-2023 ambulatory [facility] Start: 08-08-2023 End: 08-09-2023 ambulatory [facility] Facility:[facility] Start: 08-08-2023 Telephone encounter Margot galvin RN Work Phone: Hematology/Oncology Comment on above: Care Coordination (S ore Throat) Start: 07-18-2023 End: 07-19-2023 ambulatory [facility] Facility:[facility] Start: 07-18-2023 End: 07-19-2023 ambulatory Chair [...] (Primary Dx) Start: 06-27-2023 End: 06-27-2023 ambulatory [facility] Facility:[facility] Start: 06-27-2023 End: 06-27-2023 ambulatory Chair [...] End: 06-19-2023 ambulatory RITA BHATT Facility:[facility] Start: 06-18-2023 End: 06-18-2023 ambulatory Rita Bhatt MD Work Phone: Urology Comment on above: Urothelial cancer (H CC) (Primary Dx) Start: 06-18-2023 End: 06-18-2023 Telemedicine consultation with patient Rita Bhatt MD Work Phone: [facility] Start: 06-06-2023 End: 06-06-2023 ambulatory Chair [...] End: 05-08-2023 ambulatory RITA BHATT Facility:[facility] Start: 05-07-2023 End: 05-07-2023 ambulatory Rita Bhatt MD Work Phone: Urology Comment on above: Malignant neoplasm o f urothelium (HCC) (Primary Dx) Start: 05-07-2023 End: 05-07-2023 Telemedicine consultation with patient Rita Bhatt MD Work Phone: [facility] Start: 04-26-2023 End: 04-29-2023 ambulatory [facility] Start: 04-25-2023 End: 04-25-2023 Orders Only Yoan [...] Start: 04-04-2023 End: 04-04-2023 ambulatory Wayne Chavez APRN.WORK MEASUREMENT ENGINEER Work Phone: Hematology/Oncology Comment on above: 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) 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); Malignant neoplasm of right kidney, except renal pelvis (HCC); Malignant neoplasm of ureter, unspecified laterality (HCC) Start: 04-04-2023 End: 04-04-2023 Patient encounter procedure Wayne Chavez APRN.WORK MEASUREMENT ENGINEER Work Phone: [facility] Start: 03-27-2023 End: 03-27-2023 ambulatory [facility] Start: 03-27-2023 End: 03-27-2023 Emergency department patient visit [facility] Start: 03-19-2023 Evaluation and management of inpatient [facility] Start: 03-19-2023 Evaluation and management of inpatient [facility]IGUEL [facility] Start: 03-19-2023 Evaluation and management of inpatient MIGUEL [facility] Start: 03-18-2023 Evaluation and management of inpatient MIGUEL [facility] Start: 03-17-2023 Evaluation and management of inpatient NOROSA [facility] Start: 03-17-2023 End: 03-19-2023 Evaluation and management of inpatient PATRICIA WHITING [facility] Start: 03-15-2023 End: 03-15-2023 ambulatory JONATHAN LEIGH [facility] Start: 03-12-2023 End: 03-12-2023 ambulatory Shawn Nelson Other [facility] Other Start: 03-12-2023 Patient encounter procedure Shawn Nelson [facility] Start: 03-10-2023 End: 03-10-[address] DI OCHOA . Facility: Start: 03-07-2023 End: 03-07-2023 ambulatory CAESAR VAZQUEZ Facility:[facility] Start: 02-21-2023 End: 02-21-2023 [facility] Start: 02-19-2023 End: 02-19-2023 ambulatory RITA BHATT Facility:[facility] Start: 01-31-2023 Telephone encounter Caesar garcía MD Work Phone: [facility] Comment on above: Return Call Request; Call pt Start: 01-31-2023 End: 01-31-2023 ambulatory CAESAR VAZQUEZ Facility:[facility] Start: 01-31-2023 End: 01-31-2023 ambulatory Daniel Fam Work Phone: Hematology/Oncology Comment on [...] End: 01-23-2023 ambulatory WAYNE CHAVEZ Facility:[facility] Start: 01-23-2023 End: 01-23-2023 ambulatory YOAN SNEED Facility:[facility] Start: 01-11-2023 End: 01-12-[address] YOAN SNEED . Facility: Start: 01-08-2023 Telephone encounter Margot galvin RN Work Phone: Hematology/Oncology Comment on above: Care Coordination (C 1D1 Post Treatment Call) Start: 01-02-2023 End: 01-03-2023 ambulatory Chair Gala Fam Work Phone: Hematology/Oncology [...] encounter Jimbo alvarado MD Work Phone: [facility] Comment on above: Patient Update Start: 12-18-2022 End: 12-19-2022 ambulatory Jian RODRIGUEZ Facility:[facility] Start: 12-17-2022 Telephone encounter Lauren Mckeon RN Work Phone: Hematology/Oncology Comment on above: Care Coordination (R eschedule appointment) Start: 12-08-2022 End: 12-08-[address] YOAN SNEED . Facility: Start: 12-05-2022 End: 12-06-2022 ambulatory Jian RODRIGUEZ Facility:[facility] Start: 12-05-2022 End: 12-05-2022 Patient encounter procedure Jian RODRIGUEZ [facility] Start: 11-26-2022 End: 11-26-2022 ambulatory Caesar [...] with patient Rita Bhatt MD Work Phone: [facility] Start: 11-09-2022 End: 11-09-[address] YOAN SNEED . Facility:[facility] Start: 10-10-2022 End: 10-10-2022 ambulatory Shawn Nelson Other [facility] Other Start: 10-10-2022 Telephone encounter Shawn [facility] Start: 09-26-2022 End: 09-27-2022 ambulatory [...] Start: 09-12-2022 End: 09-12-2022 Admission to establishment Pac Main 4 Work Phone: [facility] Start: 09-12-2022 End: 09-12-2022 Preprocedural examination done [facility] Main 4 Work Phone: Pre Anesthesia Start: 07-30-2022 End: 07-30-2022 ambulatory Shawn Nelson Other [facility] Other Start: 07-30-2022 Telephone encounter Shawn Nelson [facility] Start: 05-04-2022 ambulatory Claire Harrison RN [facility] Start: 03-26-2022 End: 03-26-2022 ambulatory Jimmy Tejada PA-C Work Phone: Urology Comment on above: Urothelial carcinoma (HCC) (Primary Dx) Start: 03-26-2022 End: 03-26-2022 Telemedicine consultation with patient Jimmy Tejada PA-C Work Phone: [facility] Start: 03-14-2022 ambulatory Claire Harrison RN [facility] Start: 03-13-2022 End: 03-13-2022 ambulatory Rita Bhatt MD Work Phone: Urology Comment on above: 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, unspecified laterality (HCC) (Primary Dx); Acute cystitis without hematuria Start: 03-13-2022 End: 03-13-2022 Telemedicine consultation with patient Rita Bhatt MD Work Phone: [facility] Start: 03-08-2022 End: 03-08-2022 ambulatory Augusto Sauceda Other [facility] Other Start: 03-08-2022 Office outpatient vi sit 25 minutes Augusto [facility] Start: 03-05-2022 End: 03-05-2022 ambulatory Soren [...] Start: 01-22-2022 End: 01-22-2022 ambulatory Chair G[facility] Work Phone: Hematology/Oncology Comment on above: Malignant neoplasm o f ureter, unspecified laterality (HCC) (Primary Dx) Start: 01-15-2022 End: 01-15-2022 ambulatory Corazon MCLAUGHLIN-C Work Phone: Hematology/Oncology Comment [...] 07-08-2020 Subsequent hospital visit by physician [facility] Work Phone: Radiology Comment on above: 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 Comment on above: Performed By: #### I LASHAE, PSASC, VITAD #### [facility] [address] [place] [address] Dr. Tan Oliveros Start: 09-12-2022 Urnls dip [...] Detail Author Start: 02-27-[address] [facility] Start: 12-19-2026 [facility] Start[facility] 11-29-2026 Diabetes Screening Diabetes Screenin [facility] Start: 11-02-2026 Diabetes Screening Diabetes Screenin g [facility] Start: 09-19-2026 Diabetes Screening Diabetes Screenin g [facility] Start: 08-29-2026 Diabetes Screening Diabetes Screenin g [facility] Start: 08-08-2026 Diabetes Screening Diabetes Screenin g [facility] Start: 07-18-2026 Diabetes Screening Diabetes Screenin g [facility] Start: 06-27-2026 Diabetes Screening Diabetes Screenin g [facility] Start: 06-06-2026 DIABETES SCREEN DIABETES SCREEN [facility] Start: 05-16-2026 DIABETES SCREEN DIABETES SCREEN [facility] Start: 04-25-2026 DIABETES SCREEN DIABETES SCREEN [facility] Start: 04-04-2026 DIABETES SCREEN DIABETES SCREEN [facility] Start: 01-23-2026 DIABETES SCREEN DIABETES SCREEN [facility] Start: 12-31-2025 DIABETES SCREEN DIABETES SCREEN [facility] Start: 11-19-2025 DIABETES SCREEN DIABETES SCREEN [facility] Start: 09-12-2025 DIABETES SCREEN DIABETES SCREEN [facility] Start: 03-16-2025 DIABETES SCREEN DIABETES SCREEN [facility] Start: 03-05-2025 DIABETES SCREEN DIABETES SCREEN [facility] Start: 02-19-2025 DIABETES SCREEN DIABETES SCREEN [facility] Start: 02-12-2025 DIABETES SCREEN DIABETES SCREEN [facility] Start: 02-05-2025 DIABETES SCREEN DIABETES SCREEN [facility] Start: 01-22-2025 DIABETES SCREEN DIABETES SCREEN [facility] Start: 01-15-2025 DIABETES SCREEN DIABETES SCREEN [facility] Start: 01-08-2025 DIABETES SCREEN DIABETES SCREEN [facility] Start: 12-24-2023 End: 03-24-2024 CBC W Auto Differential panel - Blood CBC + DIFF Lab Routine 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), stage V (HCC) Abnormal weight loss Malignant neoplasm of urinary bladder, unspecified site (HCC) Expected: 12/24/2023, Expires: 03/24/2024 [facility] Work Phone: Comment on above: Expected: 12/24/2023 , Expires: 03/24/2024 Start: 12-24-2023 End: 03-24-2024 Comprehensive metabolic 2000 panel - Serum or Plasma COMP METABOLIC PANEL Lab Routine 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), stage V (HCC) Abnormal weight loss Malignant neoplasm of urinary bladder, unspecified site (HCC) Expected: 12/24/2023, Expires: 03/24/2024 [facility] Work Phone: Comment on above: Expected: 12/24/2023 , Expires: 03/24/2024 Start: 10-14-2023 Advance Directive Discussion Advance Directive Discussion [facility] Start: 10-14-2023 Depression Assessment Depression Ass essment [facility] Start: 10-07-2023 Shingrix Vaccine (2 of 2) Banks grix Vaccine (2 of 2) [facility] Start: 08-22-2023 End: 08-16-2024 Ct abdomen & pelvis w/contrast material CT ABD/PEL W IVCON Radiology Routine Malignant 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) Expected: 08/22/2023 (Approximate), Expires: 08/16/2024 [facility] Work Phone: Comment on above: Expected: 08/22/2023 (Approximate), Expires: 08/16/2024 Start: 08-22-2023 End: 08-16-2024 CT CHEST W IVCON CT CHEST W IVCON Radiology Routine Malignant 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) Expected: 08/22/2023 (Approximate), Expires: 08/16/2024 [facility] Work Phone: Comment on above: Expected: 08/22/2023 (Approximate), Expires: 08/16/2024 Start: 07-19-2023 End: 09-18-2023 CBC W Auto Differential panel - Blood CBC + DIFF Lab Routine Malignant 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) Malaise and fatigue Expected: 07/19/2023, Expires: 09/18/2023 [facility] Work Phone: Comment on above: Expected: 07/19/2023 , Expires: 09/18/2023 Start: 07-19-2023 End: 09-18-2023 Comprehensive metabolic 2000 panel - Serum or Plasma COMP METABOLIC PANEL Lab Routine Malignant 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) Malaise and fatigue Expected: 07/19/2023, Expires: 09/18/2023 [facility] Work Phone: Comment on above: Expected: 07/19/2023 , Expires: 09/18/2023 Start: 07-19-2023 End: 09-18-2023 Thyrotropin [Units/volume] in Serum or Plasma TSH BLD Lab Routine Malignant 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) Malaise and fatigue Expected: 07/19/2023, Expires: 09/18/2023 [facility] Work Phone: Comment on above: Expected: 07/19/2023 , Expires: 09/18/2023 Start: 06-14-2023 Covid-19 Vaccine () Covid-19 Vaccine ( season) [facility] Start: 06-14-2023 Influenza vaccination [facility] Start: 04-25-2023 End: 06-25-2023 Thyroxine (T4) free [Mass/volume] in Serum or Plasma [facility] Work Phone: Comment on above: Expected: 04/25/2023 , Expires: 06/25/2023 Start: 04-25-2023 End: 06-25-2023 Triiodothyronine (T3) [Mass/volume] in Serum or Plasma [facility] Work Phone: Comment on above: Expected: 04/25/2023 , Expires: 06/25/2023 Start: 12-19-2022 End: 02-18-2023 Renal function 2000 panel - Serum or Plasma RENAL FUNCTION PANEL Lab Routine CELSO (acute kidney injury) (HCC) Expected: 12/19/2022, Expires: 02/18/2023 [facility] Work Phone: Comment on above: Expected: 12/19/2022 , Expires: 02/18/2023 Start: 10-14-2022 ADVANCE DIRECTIVE DISCUSSION ADVANCE DIRECTIVE DISCUSSION [facility] Start: 10-14-2022 DEPRESSION ASSESSMENT DEPRESSION ASS ESSMENT [facility] Start: 06-14-2022 Influenza vaccination [facility] Start: 03-13-2022 End: 03-13-2023 ECG COMPLETE ECG COMPLETE ECG Routine 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, unspecified laterality (HCC) Expected: 03/13/2022, Expires: 03/13/2023 [facility] Work Phone: Comment on above: Expected: 03/13/2022 , Expires: 03/13/2023 Start: 02-19-2022 End: 04-21-2022 CBC W Auto Differential panel - Blood CBC + DIFF Lab Routine Malignant neoplasm of ureter, unspecified laterality (HCC) Expected: 02/19/2022, Expires: 04/21/2022 [facility] Work Phone: Comment on above: Expected: 02/19/2022 , Expires: 04/21/2022 Start: 02-19-2022 End: 04-21-2022 Comprehensive metabolic 2000 panel - Serum or Plasma COMP METABOLIC PANEL Lab Routine Malignant neoplasm of ureter, unspecified laterality (HCC) Expected: 02/19/2022, Expires: 04/21/2022 [facility] Work Phone: Comment on above: Expected: 02/19/2022 , Expires: 04/21/2022 Start: 01-22-2022 End: 03-24-2022 CBC W Auto Differential panel - Blood CBC + DIFF Lab Routine Malignant neoplasm of ureter, unspecified laterality (HCC) Expected: 01/22/2022, Expires: 03/24/2022 [facility] Work Phone: Comment on above: Expected: 01/22/2022 , Expires: 03/24/2022 Start: 01-22-2022 End: 03-24-2022 Comprehensive metabolic 2000 panel - Serum or Plasma COMP METABOLIC PANEL Lab Routine Malignant neoplasm of ureter, unspecified laterality (HCC) Expected: 01/22/2022, Expires: 03/24/2022 [facility] Work Phone: Comment on above: Expected: 01/22/2022 , Expires: 03/24/2022 Start: 12-14-2021 COVID-19 VACCINE (4 - Booster for Pfizer series) COVID-19 VACCINE (4 - Booster for Pfizer series) [facility] Start: 11-10-2021 COVID-19 VACCINE (4 - Booster for Pfizer series) COVID-19 VACCINE (4 - Booster for Pfizer series) [facility] Start: 11-10-2021 COVID-19 VACCINE (6 - Pfizer series) COVID-19 VACCINE (6 - Pfizer series) [facility] Start: 10-14-2021 ADVANCE DIRECTIVE DISCUSSION ADVANCE DIRECTIVE DISCUSSION [facility] Start: 10-14-2021 DEPRESSION ASSESSMENT DEPRESSION ASS ESSMENT [facility] Start: 06-14-2021 Influenza vaccination INFLUENZA (#1) [facility] Start: 02-13-2018 PNEUMOCOCCAL: 65+ (3 - PPSV23 or PCV20) PNEUMOCOCCAL: 65+ (3 - PPSV23 or PCV20) [facility] Start: 01-16-2013 Urine microalbumin profile DTAP,TDAP ,TD (1 - Tdap) [facility] Start: 1999 Hepatitis B Vaccine (1 of 3 - Risk 3-dose series) Hepatitis B Vaccine (1 of 3 - Risk 3-dose series) [facility] Start: 1999 RSV Vaccine (1 - 1-d ose 60+ series) RSV Vaccine (1 - 1-dose 60+ series) [facility] Start: 1989 SHINGRIX VACCINE (1 of 2) BANKS GRIX VACCINE (1 of 2) [facility] Start: 1958 Hepatitis A Vaccine (1 of 2 - Risk 2-dose series) Hepatitis A Vaccine (1 of 2 - Risk 2-dose series) [facility] Start: 1958 SHINGRIX VACCINE (1 of 2) BANKS GRIX VACCINE (1 of 2) [facility] Start: 1957 MMR Vaccine (1 of 2 - Risk 2-dose series) MMR Vaccine (1 of 2 - Risk 2-dose series) [facility] Start: 1949 Meningococcal B Vacc ine: Consider Based On Risk (1 of 4 - Increased Risk) Meningococcal B Vaccine: Consider Based On Risk (1 of 4 - Increased Risk) [facility] End: 06-14-2024 Ct abdomen & pelvis w/contrast material CT ABD/PEL W IVCON Radiology Routine Malignant 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) 1 Occurrences starting 05/16/2023 until 06/14/2024 [facility] Work Phone: Comment on above: 1 Occurrences starti ng 05/16/2023 until 06/14/2024 End: 01-18-2025 CT Abdomen and Pelvis W contrast IV CT ABD/PEL W IVCON Radiology Routine Malignant neoplasm of urinary bladder, unspecified site (HCC) 1 Occurrences starting 12/20/2023 until 01/18/2025 [facility] Work Phone: Comment on above: 1 Occurrences starti ng 12/20/2023 until 01/18/2025 End: 01-18-2025 CT Chest W contrast IV CT CHEST W IVCON Radiology Routine Malignant neoplasm of urinary bladder, unspecified site (HCC) 1 Occurrences starting 12/20/2023 until 01/18/2025 [facility] Work Phone: Comment on above: 1 Occurrences starti ng 12/20/2023 until 01/18/2025 End: 06-14-2024 CT CHEST W IVCON CT CHEST W IVCON Radiology Routine Malignant 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) 1 Occurrences starting 05/16/2023 until 06/14/2024 [facility] Work Phone: Comment on above: 1 Occurrences starti ng 05/16/2023 until 06/14/2024 ECG COMPLETE ECG COMPLETE ECG Routine Pre-op evaluation 09/12/2022 11:47 AM [facility] Work Phone: REFERRAL FOR ADDITIO NAL BIOMARKER AND MOLECULAR TESTING REFERRAL FOR ADDITIONAL BIOMARKER AND MOLECULAR TESTING Lab Routine Malignant neoplasm of ureter, unspecified laterality (HCC) 12/03/2022 9:12 AM [facility] Work Phone: [facility] Immunizations Immunization Date Immunization Notes Care Provider Laurence rockwell 08-12-2023 zoster vaccine recombinant Chair Fam Work Phone: [facility] 02-26-2022 diphtheria, tetanus toxoids and pertussis vaccine Chair Fam Work Phone: [facility] 09-15-2021 SARS-CoV-2 (COVID-19 ) mRNA BNT-162b2 fred RODRIGUEZ [facility] 11-26-2020 SARS-CoV-2 (COVID-19 ) mRNA BNT-162b2 fred RODRIGUZE [facility] 11-05-2020 SARS-CoV-2 (COVID-19 ) mRNA BNT-162b2 vax Jian JENNIFER [facility] 08-09-2015 influenza nasal, unspecified formulation Cristel Work Phone: [facility] 08-09-2015 influenza virus vacc ine, unspecified formulation Jian JENNIFER [facility] 08-09-2015 influenza, intraderm al, quadrivalent, preservative free, injectable Soren Perea MD Work Phone: [facility] 01-07-2015 pneumococcal conjuga te vaccine, 13 valent Soren Perea MD Work Phone: [facility] 02-13-2013 pneumococcal polysaccharide vaccine, 23 valent Soren Perea MD Work Phone: [facility] 01-15-2013 tetanus and diphther ia toxoids, adsorbed, preservative free, for adult use (2 Lf of tetanus toxoid and 2 Lf of diphtheria toxoid) Jian RODRIGUEZ [facility] 01-15-2013 tetanus and diphther ia toxoids, adsorbed, preservative free, for adult use (5 Lf of tetanus toxoid and 2 Lf of diphtheria toxoid) Soren Perea MD Work Phone: [facility] Payers Date Payer Category Payer Private Health Insurance [facility] AARP SUPPLEMENT [id number] 2021-Present [phone] [address] [place] [address] Indemnity [id number] 2019 Medicare [id number] 2017 Private Health Insurance [id number] 2005 Medicare MEDICARE MEDICAR E A AND B [id number] 2005-Present [phone] [place] [address] Medicare [id number] 2005 Medicare MEDICARE MEDICAR E A AND B [id number] 2005-Present [phone] [place] [address] Medicare [id number] 1959 Medicare [id number] 1959 Medicare [id number] 1959 Unknown [id number] 1939 Unknown [id number] 1939 Unknown [id number] 1939 Unknown [id number] 1939 Unknown [id number] 1939 Unknown [id number] 1939 Unknown [id number] 1939 Unknown [id number] 1939 Unknown [id number] 1939 Unknown [id number] Unknown Unknown [id number] Social History Date Type Detail Facility Start: 07-14-2018 End: 11-26-2022 Tobacco smoking status NHIS Ex-smoker [facility] Comment on above: patient quit smoking over 30 years ago End: 10-14-1970 History of tobacco use Current smoker [facility] End: 10-14-1970 History of tobacco use Cigarette Smoker [facility] Start: 07-14-2018 End: 02-19-2023 Cigarettes smoked current (pack per day) - Reported 1 [facility] Start: 07-14-2018 End: 11-26-2022 Tobacco use and exposure Smokeless tobacco non-user [facility] Start: 01-08-2022 End: 11-29-2023 Alcohol intake Current non-drinker of alcohol (finding) [facility] Start: 1940 Sex Assigned At Male [facility] Start: 12-29-2021 End: 09-12-2022 Exposure to SARS-CoV-2 (event) Not sure [facility] Start: 02-19-2023 End: 03-07-2023 Sex Assigned At [facility] History of tobacco use Passive smoker [facility] Tobacco smoking status Never [facility] Comment on above: patient quit smoking over 30 years ago Start: 09-28-2019 Gender identity Identifies as male gender (finding) [facility] Start: 09-28-2019 Sexual orientation Heterosexual (nestor steele) [facility] Medical Equipment Procedure Code Equipment Code Equipment Origin al Text Equipment Identifier Dates Inlay Mila Doce Ureteral Stent Kit 7f X 26cm [id number] Start: 10-29-2019 Stent Inlay Opti ma 7fr Taper Timbi-[place]a [place] Green Polymer Phreecoat 24cm Ureteral - [id number] Start: 08-12-2019 Stent Inlay Opti ma 7fr Taper Timbi-[place]a [place] Green Polymer Phreecoat 26cm Ureteral - [id number] Start: 09-30-2019 Stent Nicore Inl ay Mila Doce 7fr Taper Timbi-[place]a [place] Green Nitinol Polymer 24cm - [id number] Start: 10-26-2021 Stent Inlay Opti ma 6fr Taper Timbi-Sha [place] Green Polymer Phreecoat 24cm Ureteral - [id number] Start: 11-12-2022 Functional Status Date Assessment Result Facility 12-05-2022 Functional Status N/A [facility] Clinical Notes 07-08-2020 to 01-21-2024 Wayne Chavez APRN.WORK MEASUREMENT ENGINEER - 12/20/2023 1:16 PM Jami Cannon MA - 12/20/2023 1:10 PM Caesar Rutledge MD - 11/29/2023 1:15 PM ESTPatient InstructionsPatient Instructions Note Date & Type Note Facility 01-21-2024 Note [place] [facility] Reason for visit: follow up HF 01/21/24 After his last visit I had instructed him to start lasix, 40mg daily x2 days then 20mg daily given his worsened leg edema and recent elevated BNP. He did not do this. His weight is up 15# and his LE swelling has worsened. His breathing is unchanged. 01/15/2024 He denies any changes since last seen. He stays active. He does all the chores at home and cares for about [address]. His is currently in a facility, she has dementia. He has some dyspnea with heavier exertion but this is stable. He has noticed worsening leg swelling. Denies CP, orthopnea, PND, dizziness/LH, palpitations. He is intentially gaining weight. Chemo has been held due ot lack of taste and poor eating. His taste is now back and he is eating better. In about a month or so he will resume chemo treatments. 12/09/23: is here for hospital follow-up he was seen at [facility] for complaints of nausea and vomiting, his troponins were 0.07 he was recommended ischemic evaluation; patient declined when to be discharged> few days later he went to [facility] ER for the same complaints but no [...] moderate, relieved by rest. He was evaluated [facility] ED and his CBC, BMP, BNP, [...] shortness of breath on exertion. NYHA class III (more content not included)... [facility] 01-21-2024 Note Patient here for 1 w [place] follow up increase in metoprolol to 50mg daily. He has put on 15# since last week. C/o increased LE edema. Denies chest pain and increase in CHANDRA. Says his stool is starting to thicken up and his appetite is returning. Review of Systems Constitutional: Positive for weight gain (15# since 01/15/2024). Cardiovascular: Positive for dyspnea on exertion and leg swelling (worsening). Musculoskeletal: Positive for arthritis, back pain, joint pain and muscle weakness. All other systems reviewed and are negative. [facility] 01-15-2024 Note [place] [facility] Reason for visit: follow up after his stress test 01/15/2024 He denies any changes since last seen. He stays active. He does all the chores at home and cares for about [address] acres [address] land. His is currently in a facility, she has dementia. He has some dyspnea with heavier exertion but this is stable. He has noticed worsening leg swelling. Denies CP, orthopnea, PND, dizziness/LH, palpitations. He is intentially gaining weight. Chemo has been held due ot lack of taste and poor eating. His taste is now back and he is eating better. In about a month or so he will resume chemo treatments. 12/09/23: is here for hospital follow-up he was seen at [facility] for complaints of nausea and vomiting, his troponins were 0.07 he was recommended ischemic evaluation; patient declined when to be discharged> few days later he went to [facility] ER for the same complaints but no [...] moderate, relieved by rest. He was evaluated [facility] ED and his CBC, BMP, BNP, [...] with an ejection fraction of 37%. No ische (more content not included)... [facility] 12-20-2023 Note [facility] 12-20-2023 History of Present illness Narrative Images from the original note were not included. NAME: Juan Jose Austin [facility] NO.: [id number] DATE OF SERVICE: December 20, 2023 (Wero) [...] pT2Nx Seen and evaluated by Dr. Glen Anedrson and chemotherapy declined 05/15/2018 - Cystoscopy with [...] pacemaker was inserted on on 03/18/2023 at [facility] with Dr. Bautista. His shortness of [...] he is a poor candidate for chemotherapy, [place] based or otherwise. Surgery would yield him [...] Sister Anesthesia Problems No Family History Wayne Wero, CONCRETE PIPE MACHINE OPERATOR.ABIOLA Hematology and Oncology Services Provided at: [place], [place] CC: Yoan Sneed MD [address] [facility] [address] I spent a total of 30 minutes on the date of the service which included preparing to see the patient, [id number] patient care, completing clinical documentation, obtaining and/or reviewing separately obtained history, performing a medically appropriate examination, counseling and educating the patient/family/caregiver, ordering medications, tests, or procedures, independently interpreting results (not separately reported), and communicating results to the patient/family/caregiver. documented in this encounter [facility] 12-20-2023 Nurse Note Patient state that he has been losing weight, he has no desire to eat, nothing tastes good he has to force himself to eat. Jami Hernandez MA documented in this encounter [facility] 12-09-2023 Note Patient here for [facility] ED in Oct 2023. He presented for nausea and vomiting. Troponins were elevated. Physican wanted to admit him for possible cardiac issues but patient wanted to be discharged. A few days later he presented to [facility] ED for same thing. Says Dr. [...] All other systems reviewed and are negative. [facility] 12-09-2023 Note [place] Electrophysiology Consult Note Reason for visit: S/P [facility] hospital follow up 12/09/23: is here for hospital follow-up he was seen at [facility] for complaints of nausea and vomiting, his troponins were 0.07 he was recommended ischemic evaluation; patient declined when to be discharged> few days later he went to [facility] ER for the same complaints but no [...] moderate, relieved by rest. He was evaluated [facility] ED and his CBC, BMP, BNP, [...] 3.9, LFTs within (more content not included)... [facility] 11-29-2023 Note [facility] 11-29-2023 History of Present illness Narrative Images from the original note were not included. NAME: DanielJuan Jose NO.: [id number] DATE OF SERVICE: November 29, 2023 (Eve) Some elements in this [...] Wayne or Corazon RTC 6 weeks with mo Labs same day HPI: CASE HISTORY: Reverse [...] pacemaker was inserted on on 03/18/2023 at [facility] with Dr. Bautista. His shortness of [...] he is a poor candidate for chemotherapy, [place] based or otherwise. Surgery would yield him [...] which included preparing to see the patient, [id number] patient care, completing clinical documentation, performing a medically appropriate examination, counseling and educating the patient/family/caregiver, ordering medications, tests, or procedures, independently interpreting results (not separately reported), communicating results to the patient/family/caregiver, and care coordination (not separately reported). Caesar Vazquez MD, CPE Hematology and Oncology Services Provided at: [place], [place] Scribe Attestation: This note was scribed [...] under my direction. CC: Yoan Sneed MD [facility] [facility] [id number] documented in this encounter [facility] 11-29-2023 Instructions Jessica Pathak - 11/29/2023 1:14 PM EST Proceed with pembrolizumab cycle 13 today. Hydration today. Follow up in 3 weeks for continued treatment. Labs same day. See Wayne or Corazon RTC 6 weeks with me Labs same day documented in this encounter [facility] 11-22-2023 Miscellaneous Notes Patient has been rescheduled to 11/29 and notified. Thanks! Edwina Olson Voicemail message received from pt requesting to reschedule his missed appointment w/ Dr Vazquez. Clerical: Please call pt @ [phone] to schedule. Thanks! Margot So, RN Pt still in need of f/u appointment. Call placed to pt. No answer. Message left requesting call back. Call placed to pt's spouse. No answer. Message left requesting call back. Margot So RN documented in this encounter [facility] 11-14-2023 Miscellaneous Notes Patient called, saying he had a missed call from us(not sure who called him). Patient stated that he was not going to make his appointments today as he was just discharged from the hospital yesterday and they are having him do a MRI(?). And He stated he will call back to reschedule these appointments. HU Moore documented in this encounter [facility] 10-10-2023 Note [facility] 09-19-2023 Note [facility] 08-29-2023 Note [facility] 08-29-2023 History of Present illness Narrative Images from the original note were not included. NAME: Juan Jose Austin [facility] NO.: [id number] DATE OF SERVICE: August 29, 2023 ([facility]) Some elements in this clinic note that are critical to medical decision making have been carefully reviewed and included from a prior clinic note dated: July 18, 2023 (ricky). Referring Provider: Rita Bhatt Additional Clinicians involved [...] pacemaker was inserted on on 03/18/2023 at [facility] with Dr. Bautista. His shortness of [...] he is a poor candidate for chemotherapy, [place] based or otherwise. Surgery would yield him [...] which included preparing to see the patient, [id number] patient care, completing clinical documentation, performing a medically appropriate examination, counseling and educating the patient/family/caregiver, ordering medications, tests, or procedures, independently interpreting results (not separately reported), communicating results to the patient/family/caregiver, and care coordination (not separately reported). Caesar Vazquez MD, CPE Hematology and Oncology Services Provided at: [place], [place] CC: No referring provider defined for this encounter. Yoan Sneed MD [address] [facility] [phone] documented in this encounter [facility] 08-29-2023 Instructions Caesar Vazquez MD - 08/29/2023 [...] restart his Keytruda. documented in this encounter [facility] 08-23-2023 Note [facility] 08-23-2023 Note [facility] 08-20-2023 Note [place] Electrophysiology Consult Note Reason for visit: S/P [facility] hospital follow up Date of Telehealth Visit: 08/20/23 The patient was notified that using 3rd republican telecommunication application (e.g., [employer]) is not HIPPA compliant and may carry some privacy risks. Yes The visit was conducted [id number] with the use of audio and video technology Jesus Manuel. between patient and provider for a virtual [...] moderate, relieved by rest. He was evaluated [facility] ED and his CBC, BMP, BNP, [...] significantly reduced left-ventr (more content not included)... [facility] 08-08-2023 Miscellaneous Notes FYI: Pt reports having [...] Margot So, RN documented in this encounter [facility] 07-18-2023 Note [facility] 07-18-2023 Instructions Caesar Vazquez MD - 07/18/2023 1:39 PM EDT Proceed with cycle 9 pembrolizumab today. In 3 weeks to for cycle 10. Labs prior No clinician RTC in 6 weeks prior to C11 Labs every [address]'s in 5 weeks documented in this encounter [facility] 07-18-2023 History of Present illness Narrative Images [...] care: Dr. Yoan Sneed (PCP), Dr. Rita hBatt, Dr. Jian Rodriguez DIAGNOSIS: Upper urothelial tract [...] dementia. Updated Visit, June 27, 2023: Juan Joseqamar Austin returns for follow-up and continued treatment [...] pacemaker was inserted on on 03/18/2023 at [facility] with Dr. Bautista. His shortness of [...] Updated Visit, January 23, 2023: Juan Jose Austni returns for follow-up and treatment. He received [...] he is a poor candidate for chemotherapy, [place] based or otherwise. Surgery would yield him [...] which included preparing to see the patient, [id number] patient care, completing clinical documentation, performing a medically appropriate examination, counseling and educating the patient/family/caregiver, ordering medications, tests, or procedures, independently interpreting results (not separately reported), communicating results to the patient/family/caregiver, and care coordination (not separately reported). Caesar Vazquez MD, CPE Hematology and Oncology Services Provided at: [place], [place] CC: No referring provider defined for this encounter. Yoan Sneed MD [address] [facility] [id number] documented in this encounter [facility] 06-27-2023 Note [facility] 06-27-2023 History of Present illness Narrative [...] pacemaker was inserted on on 03/18/2023 at [facility] with Dr. Bautista. His shortness of [...] he is a poor candidate for chemotherapy, [place] based or otherwise. Surgery would yield him [...] APRN.CNP Hematology and Oncology Services Provided at: [place], [place] I spent a total of 30 minutes on the date of the service which included preparing to see the patient, vghr-ph-vxod patient care, completing clinical documentation, obtaining and/or reviewing separately obtained history, performing a medically appropriate examination, counseling and educating the patient/family/caregiver, ordering medications, tests, or procedures, independently interpreting results (not separately reported), and communicating results to the patient/family/caregiver. documented in this encounter [facility] 06-18-2023 Note [facility] 06-18-2023 History of Present illness Narrative VIRTUAL VISIT PROGRESS NOTE This is a virtual visit using Audio only. It required patient-provider interaction for the medical decision making as documented below. I have communicated my name and active licensure. The patient's identity and physical location were verified at the time of this visit. Either the patient or their legal primary care sales representative has been informed of the [...] Sandy Bhatt MD documented in this encounter [facility] 06-06-2023 Note [facility] 06-06-2023 History of Present illness Narrative [...] pacemaker was inserted on on 03/18/2023 at [facility] with Dr. Bautista. His shortness of [...] he is a poor candidate for chemotherapy, [place] based or otherwise. Surgery would yield him [...] which included preparing to see the patient, bygo-ic-bbba patient care, completing clinical documentation, performing a medically appropriate examination, counseling and educating the patient/family/caregiver, ordering medications, tests, or procedures, and independently interpreting results (not separately reported). Caesar Vazquez MD, CPE Hematology and Oncology Services Provided at: [place], [place] documented in this encounter [facility] 05-31-2023 Miscellaneous Notes Requested Prescriptions Pending Prescriptions Disp Refills tamsulosin (FLOMAX) 0.4 mg 30 capsule 5 Sig: Take 1 capsule by mouth once daily. DAUGHTER STATES PATIENT IS OUT OF PILLS documented in this encounter [facility] 05-31-2023 Note [facility] 05-31-2023 Note [facility] 05-16-2023 Note [facility] 05-16-2023 Instructions Caesar Vazquez MD - 05/16/2023 2:[address] CAP in 1 -2 weeks Reschedule appointment with Dr. Bhatt after CT. Proceed with cycle 6 pembrolizumab today. Follow up in 3 weeks to for cycle 7. Labs prior. Review Scans Hold Lasix for a few days to see if mouth improves. documented in this encounter [facility] 05-16-2023 History of Present illness Narrative Images [...] Yoan Sneed (PCP), Dr. Rita Bhatt, Dr. Jina Rodriguez DIAGNOSIS: Upper urothelial tract carcinoma ONCOLOGIC [...] pacemaker was inserted on on 03/18/2023 at [facility] with Dr. Bautista. His shortness of [...] he is a poor candidate for chemotherapy, [place] based or otherwise. Surgery would yield him [...] which included preparing to see the patient, zbvl-qw-dxfc patient care, completing clinical documentation, performing a medically appropriate examination, counseling and educating the patient/family/caregiver, ordering medications, tests, or procedures, and independently interpreting results (not separately reported). Caesar Vazquez MD, CPE Hematology and Oncology Services Provided at: [place], [place] documented in this encounter [facility] 05-07-2023 Note HNO ID: [id number] Author: Rita Bhatt MD Service: ? Author Type: Physician Type: Progress Notes Filed: 05/25/2023 4:55 PM Note Text: s [facility] 05-07-2023 History of Present illness Narrative s documented in this encounter [facility] 05-06-2023 Note -hx of flutter -not on ac , on aspirin Does not want AC -no flutter since recommended for ablation per documentation -will monitor device for arrhythmia [facility] 05-06-2023 Note -s/p DC PPM -device check stable [facility] 05-06-2023 Note -stable -ct meds [facility] 05-06-2023 Note - NYHA I-2 GDMT: Losartan 50 mg, Toprol-XL 25 mg, Isordil 20 mg twice daily, hydralazine 25 mg 3 times daily, Lasix 20 mg daily, Lipitor 10 mg daily, aspirin 81 mg, amlodipine 10 mg -pending repeat echo, previously echo 04/05 EF 48% [facility] 04-26-2023 Note [facility] Consult Note Reason [...] moderate, relieved by rest. He was evaluated [facility] ED and his CBC, BMP, BNP, [...] failure treatment by (more content not included)... [facility] 04-26-2023 Note Review of Systems All other systems reviewed and are negative. [facility] 04-25-2023 Note [facility] 07-13-2023 History of Present illness Narrative Images from [...] pacemaker was inserted on on 03/18/2023 at [facility] with Dr. Bautista. His shortness of [...] he is a poor candidate for chemotherapy, [place] based or otherwise. Surgery would yield him [...] APRN.CNP Hematology and Oncology Services Provided at: [place], [place] I spent a total of 30 minutes on the date of the service which included preparing to see the patient, nlnp-xs-amvv patient care, completing clinical documentation, obtaining and/or reviewing separately obtained history, performing a medically appropriate examination, counseling and educating the patient/family/caregiver, ordering medications, tests, or procedures, independently interpreting results (not separately reported), and communicating results to the patient/family/caregiver. documented in this encounter [facility] 04-04-2023 Note [facility] 04-04-2023 History of Present illness Narrative [...] pacemaker was inserted on on 03/18/2022 at [facility] with Dr. Bautista. His shortness of [...] he is a poor candidate for chemotherapy, [place] based or otherwise. Surgery would yield him [...] for cycle 5. Labs prior. Wayne Chavez APRN.[facility] Hematology and Oncology Services Provided at: [place], [place] I spent a total of 30 minutes on the date of the service which included preparing to see the patient, gsgi-qf-hlpk patient care, completing clinical documentation, obtaining and/or reviewing separately obtained history, performing a medically appropriate examination, counseling and educating the patient/family/caregiver, ordering medications, tests, or procedures, independently interpreting results (not separately reported), and communicating results to the patient/family/caregiver. documented in this encounter [facility] 03-27-2023 Note Patient seen for wou nd check s/p [employer] pacemaker placement on 03/18/2023. Wound is [...] been scheduled for device and follow-up appointment. [facility] 03-19-2023 Note Hospital Medicine Discharge Summary Final [...] medication deferred to the outpatient follow-up with instructor correspondence [employer]. Dear Dr. Naren MD, Juan Jose is advised to follow up with you within 1-2 weeks. Follow-up with: Cardiology Scheduled appointments: Future Appointments Date Time Provider Department Center 03/27/2023 9:20 AM Dagoberto James NP [facility] 2023 10:00 AM Josesito Villanueva NP [facility] [...] Your Medications These medications were sent to [facility] [id number] [facility] [address] [facility] [address] [facility] [id number] doxycycline 100 mg capsule hydrALAZINE 25 mg [...] and/or family and (more content not included)... [facility] 03-19-2023 Note 03/19/23 1601 Referral Data Referral Source universal worker assisted living Activities of Daily Living Living Arrangement (Current/Prior to Hospitalization) Private residence Discharge Planning Support Systems Spouse/significant other;Children Type of Residence/Post Acute Needs Private residence [facility] 03-19-2023 Note continuing left leg Cardiology Progress [...] Value Ventricular Rate 60 Atrial Rate 60 TX Interval 192 QRS DURATION 168 QT Interval 474 QTC CALCULATION(BAZETT) 474 P Lamont 30 R-Lamont 5 T Wave Lamont 263 Impression AV dual-paced rhythm Confirmed by [...] degree AV block, LBBB s/p dual chamber [employer] PPM placement. 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 male who [...] stable lead thresholds Josesito Villanueva NP [facility] [id number] [facility] 03-19-2023 Note Physical Therapy Physical Therapy Evaluation Patient Name: Juan Jose Austin : 1940 Today's Date: 03/19/2023 Patient is an 82 y./o. male who was scheduled for a pacemaker implantation prior to an unwitnessed syncope episode. Patient was admitted to [facility] on 03/16/2023 and the pacemaker was [...] fractured hip last week and is in care home currently. Pt. reported daughter lives nearby and [...] Level of Function Prior Function Level of [place]: Independent with ADLs and functional transfers Prior [...] to your side (more content not included)... [facility] 03-19-2023 Note 03/19/23 0954 Admission Assessment Questions [...] link and activate MyChart? No (Status: pending) [facility] 03-18-2023 Note Hospital Medicine Daily Progress Note - 03/18/2023 3:12 PM; Room: [address] [place] [address] Admission: 03/16/2023 10:06 PM; Length of stay: 2 days THE HOSPITALIST TEAM PREFERS TO USE [employer] CHAT FOR COMMUNICATION 7AM-7PM. IF I DO NOT RESPOND WITHIN 15 MINUTES, PLEASE PAGE ME/CALL THROUGH THE WEBSITE OPTIMIZATION STRATEGIST. FROM 7PM-7AM, PLEASE PAGE [phone](COVR) Code Status: Full Code Discharge Destination: home [...] LDL 84 03/16/2023 No results found for: [id number], IRON, TIBC, C3, C4, KODY, CANCA, ASO, PSA, CEA, CA125, CA199, AFP, CA153 Imaging Electrophysiology procedure Narrative: Images from the original result were not included. DUAL CHAMBER PACEMAKER IMPLANT PROCEDURE NOTE DATE OF PROCEDURE: 03/18/2023 PERFORMING PHYSICIAN: Dr. Jimbo Bautista PERSONAL LINES INSURANCE AGENT: Dr John Quiroga CONSENT: Patient LOCATION: EP Lab PROCEDURE PERFORMED: 1. Implantation of pacemaker ([employer]) 2. Ultrasound guided venous access INDICATIONS: [...] unwitnessed syncopal episode and was admiited to [facility]. On evaluation, the patient was having heart rates in the 20s to 30s with symptoms and transferred to [facility]. He was started on a dopamine drip for bradycardia and it elevated his heart rates into the 40s. PROCEDURAL DETAILS: (more content not included)... [facility] 03-18-2023 Note Attestation signed by Brandie Michel MD at 03/18/2023 12:51 PM I did not personally examine the patient. I discussed the case with the resident/fellow Dr Blas. Teaching Physician's Revisions: Brandie Michel MD, MPH, [facility], [facility], [facility] Interventional Cardiology Pager Email: [email or web address] Cardiology Progress Note Subjective Subjective: Juan Jose [...] Value Ventricular Rate 39 Atrial Rate 39 TX Interval 342 QRS DURATION 156 QT Interval 504 QTC CALCULATION(BAZETT) 405 P Lamont 17 R-Lamont -84 T Wave Lamont 10 Impression Marked sinus bradycardia with 1st [...] PROCEDURE: 03/18/2023 PERFORMING PHYSICIAN: Dr. Jimbo Bautista PERSONAL LINES INSURANCE AGENT: Dr John Quiroga CONSENT: Patient LOCATION: EP Lab PROCEDURE PERFORMED: 1. Implantation of pacemaker ([employer]) 2. Ultrasound guided venous access INDICATIONS: [...] unwitnessed syncopal episode and was admiited to [facility]. On evaluation, the patient was having heart rates in the 20s to 30s with symptoms and transferred to [facility]. He was started on a dopamine [...] access was o (more content not included)... [facility] 03-18-2023 Note Transport at bedside to take pt down to xray- typically xray is not completed until the AM after pacemaker insertion- Called Dr. Blas carroting machine operator- okay to send down now. [facility] 03-18-2023 Note Patient back from EP lab with new pacer and hooked up to monitor- vitals obtained. Patient has a few medications auto held- all from Dr. Blas with cardiology. RN called carroting machine operator at this time- continue to hold meds- only giving asa, iron tablet, and flomax at this time. Hold heparin subcutaneous and all other auto held medications- will re-evaluate in the afternoon. RN to follow up. [facility] 03-18-2023 Note DUAL CHAMBER PACEMAK ER IMPLANT PROCEDURE NOTE DATE OF PROCEDURE: 03/18/2023 PERFORMING PHYSICIAN: Dr. Jimbo Bautista PERSONAL LINES INSURANCE AGENT: Dr John Quiroga CONSENT: Patient LOCATION: EP Lab PROCEDURE PERFORMED: 1. Implantation of pacemaker ([employer]) 2. Ultrasound guided venous access INDICATIONS: [...] unwitnessed syncopal episode and was admiited to [facility]. On evaluation, the patient was having heart rates in the 20s to 30s with symptoms and transferred to [facility]. He was started on a dopamine [...] using modified seldinger technique using a 5 Cymro micro-puncture needle on two occasions and 0.35 [...] pocket was created for the device. 9/6 [employer] Safesheaths were placed over the wire. An active fixation [employer] pacing lead was then delivered through the SPCC sheath via 9Fsheath to the right ventricle. After confirmation of lead position on orthogonal views (HESTER and GABONESE) to confirm septal position, the screw was activated, and the lead was placed in the right ventricular mid cavity towards the septum. After confirmation of good sensing parameters, injury pattern and pacing thresholds, 10V pacing was done and no diaphragmatic stimulation was noted. It was then secured in the pocket using three 1-0 Silk sutures. Then an active fixation [employer] lead was delivered through the 6Fsheath to the right atrial appendage. After confirmation of lead position on orthogonal views (HESTER and GABONESE), the screw was activated. After confirmation of [...] 100mg bid. Jimbo Bautista MD Cardiac Electrophysiology [facility] 03-18-2023 Note Patient: Juan Jose Austin Procedure Information Date/Time: 03/18/23 1500 Procedure: Implant PPM Location: [facility] SEDIMENTATIONIST 1 / [facility] (Cath) Providers: Jimbo [...] Plan discussed with attending. Additional Equipment Requests [facility] 03-18-2023 Note Patient down to MATTHEW gallagher for pacemaker at this time. [facility] 03-18-2023 Note RN called daughter lizbeth camacho this time-per EP lab and cardiology- moving up patient first for pacer and coming to grab patient in about a half hour. Daughter states she will make it up as soon as she can. [facility] 03-18-2023 Note RN called cardiology at this time regarding orders for dopamine gtt and patient's HR. Orders are to titrate for BP not for HR. Patient's heart rate this morning has ranged from high 20's to high 30's- averaging around 35 BPM. carroting machine operator said do not titrate gtt- keep at 5 mcg/kg/min at this time and are trying to move patient up on the list for a pacer. RN to relay message to patient and to call if moving up in time. [facility] 03-17-2023 Note Hospital Medicine Daily Progress Note - 03/17/2023 10:00 AM; Room: [address] [place] [address] Admission: 03/16/2023 10:06 PM; Length of stay: 1 days THE HOSPITALIST TEAM PREFERS TO USE [employer] CHAT FOR COMMUNICATION 7AM-7PM. IF I DO NOT RESPOND WITHIN 15 MINUTES, PLEASE PAGE ME/CALL THROUGH THE WEBSITE OPTIMIZATION STRATEGIST. FROM 7PM-7AM, PLEASE PAGE [phone](COVR) Code Status: Full Code Discharge Destination: home [...] LDL 84 03/16/2023 No results found for: [id number], IRON, TIBC, C3, C4, KODY, CANCA, ASO, [...] Sung. Discharge Planning Signed Miguel San MD [facility] Medicine 03/17/2023 10:00 AM [facility] 03-17-2023 Note . Hospital Medicine History and Physical 03/16/2023 11:16 PM THE HOSPITALIST TEAM PREFERS TO USE [employer] CHAT FOR COMMUNICATION 7AM-7PM. IF I DO NOT RESPOND WITHIN 15 MINUTES, PLEASE PAGE ME/CALL THROUGH THE WEBSITE OPTIMIZATION STRATEGIST. FROM 7PM-7AM, PLEASE PAGE [phone](COVR) Chief Complaint No chief complaint on file. [...] syncopal episod CKD. 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 Lew (more content not included)... [facility] 03-15-[address] Andreina hassan and he recommended perm Pacemaker- orders sent and d/w pt and daughter= provided pt education pamphlet for Pacemaker that reviewed indications, risks vs benefits of procedure and pt voiced understanding and is agreeable with proceeding with PPM [facility] 03-15-2023 Note Hypertension is cont rolled Continue med regime [facility] 03-15-2023 Note Noted bradycardia, w ith 1st AV block, 2:1 AV block, NSVT 3 and 5 beat run with syncopal episode and near syncopal episodes. Pt is unsure if he has stopped toprol- therefore d/w them to stop Toprol. D/W Dr Bautista and plan for perm pacemaker implant MONTRELL in light of syncope [facility] 03-15-2023 Note [facility] CARDIOLOGY PROGR ESS NOTE [...] me. He was evaluated in ED at [facility], and Dr Sneed had a 7 [...] moderate, relieved by rest. He was evaluated [facility] ED and his CBC, BMP, BNP, [...] At last visi (more content not included)... [facility] 03-15-2023 Note Patient [facility] for [facility] for syncopal event. He did wear Holter [...] All other systems reviewed and are negative. 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 Pt reports that his dyspnea is only on exertion. Denies feeling short of breath at rest. Pt was outside working in his flower beds and mulching during our call. Margot So RN * Telephone Encounter - Mary Jo Fierro Sec - 01/31/2023 8:[address] Antwan Johnson would like you to call Juan Jose next week. 02-07 to check symptoms. Thank you documented in this encounterSt. [facility]-2023 NoteHNO ID: [id number] Author: Padmini Mike RN Service: ? Author Type: Registered Nurse Type: Progress Notes Filed: 01/31/2023 10:35 AM Note Text: No labs today per Dr. Vazquez. Padmini Mike RNPromedica [facility]04-20-2023 [facility]04-20-2023 History of Present illness Narrative* Padmini Mike RN - 01/31/2023 9:22 AM EDT No labs today per Dr. Vazquez. Padmini Mike RN documented in this [facility]04-20-2023 Instructions* Patient Instructions* Caesar Vazquez MD - 01/31/2023 8:50 AM EDT Resume C2 pembrolizumab today. RTC in 3 weeks Ask Ms. So to call next week to heck symptoms documented in this encounterSt. Mary'[facility]04-20-2023 History of Present illness Narrative* Caesar Vazquez [...] he is a poor candidate for chemotherapy, [place] based or otherwise. Surgery would yield him [...] which included preparing to see the patient, bkuo-xw-nbzf patient care, completing clinical documentation, performing a medically appropriate examination, counseling and educating the patient/family/caregiver, ordering medications, tests, or p rocedures, communicating with other HCPs (not separately reported), independently interpreting results (not separately reported), and communicating results to the patient/family/caregiver. Caesar Vazquez MD, CPE Hematology and Oncology Services Provided at: [place], [place] documented in this encounterSt. [facility]04-12-2023 [facility]-12-20[facility]-28-2023 Miscellaneous Notes * Telephone Encounter - [...] protocol. Margot So RN documented in this encounterSt. Mary'[facility]03-22-2023 [facility]Prom[facility] Instructions* Patient Instructions* Caesar Vazquez MD - 01/02/2023 3:18 PM EDT Start Keytruda q 3 weeks Labs same day. RTC 3 weeks with Wayne / Corazon Owens documented in this encounterSt. Mary'[facility] Center03-22-2023 History of Present illness Narrative* Caesar Vazquez [...] he is a poor candidate for chemotherapy, [place] based or otherwise. Surgery would yield him [...] which included preparing to see the patient, kxsj-af-rhir patient care, completing clinical documentation, obtaining and/or reviewing separately obtained history, counseling and educating the patient/family/caregiver, ordering medications, edin ts, or procedures, independently interpreting results (not separately reported), and communicating results to the patient/family/caregiver. Caesar Vazquez MD, CPE Hematology and Oncology Services Provided at: [place], [place] documented in this encounterSt. Mary'[facility]03-22-2023 Nurse Note* Liberty Hayes - 01/02/2023 3:08 PM EDT Pt requested recent blood work faxed to Dr. Sneed. Faxed via [employer]. Liberty Hayes documented in this encounterSt. Mary'S [facility] Center03-20-2023 [facility]Prom[facility] History of Present illness Narrative* Margot [...] N/A Margot So RN documented in this encounterSt. Mary'S [facility] Center03-08-2023 Miscellaneous Notes* Telephone Encounter - Jimbo Alarcon MD - 12/19/2022 8:54 AM EST Patient cancelled Nephrology appt for 12/20/22. Called patient, plan to get labs in the coming days to ensure continued improvement of Cr. documented in this encounterSt. Mary'S Medical Center03-06-2023 Miscellaneous Notes* Telephone Encounter - Lauren Mendez - 12/17/2022 11:21 AM EST Called patient and r/s to next week * Telephone Encounter - Lauren Mckeon RN - 12/17/2022 11:15 AM EST Pt's caris testing has not been resulted yet. Please call pt and reschedule to next week per Dr Moncada's request. Thanks Lauren Mckeon RN documented in this encounterSt. Mary'S [facility] Center02-22-2023 Hospital Discharge instructions Patient Education 12/05/2022 10:40:17 [...] cells. Follow these instructions at home: Take fxsy-mrx-gsblkqa and prescription medicines only as told by [...] is important. Where to find more information [employer] [employer]: www.cancer.org National Cancer Mous[employer] (NCI): www.cancer.gov Contact a health care provider [...] 10/02/2004 Document Revised: 09/12/2018 Document Reviewed: 09/03/2017 [employer] Patient Education 2020 [employer]. Follow Up Care 11/23/2022 15:08:18 With:JENNIFER FOUNTAIN, Jian Lee, URL Address: [facility] [address] , [place] [address]- When: Unknown [facility] [id number] Instructions* Patient Instructions* Caesar Vazquez MD - 11/26/2022 9:29 AM EST 1. Virtual visit 3 weeks after discussion with Dr. Bhatt and consideration of molecular studies. 2. AP Mol. documented in this encounterSt. [facility]-13-[facility] History of Present illness Narrative* Caesar aVzquez MD - 11/26/2022 8:53 AM EST Images [...] CPE Hematology and Oncology Services Provided at: [place], [place] I spent a total of 40 minutes on the date of the service which included preparing to see the patient, ukbn-ho-[id number] patient care, completing clinical documentation, obtaining and/or reviewing separately obtained history, performing a medically appropriate examination, counseling and educating the pat ient/family/caregiver, ordering medications, tests, or procedures, independently interpreting results (not separately reported) and communicating results to the patient/family/caregiver. documented in this encounterSt. Mary'[facility]02-13-2023 Nurse Note* Jami Hernandez MA - 11/26/2022 8:47 AM EST Patient was recently [facility] he will havehis ureteral stent removed locally by Dr. Rodriguez. Jami Hernandez MA documented in this encounterSt. Mary'S [facility] Center02-07-2023 History of Present illness Narrative* [...] he would probably be best off recieving termite exterminator helper immunotherapy or other systemic therapy. We could [...] complete. Rita Bhatt MD documented in this encounterSt. Mary'S Medical Center11-30-2022 History of Present illness Narrative* Nicholas Saenz MD - 09/12/2022 2:45 PM EST [facility] PRE-OP NOTE [...] surgery pending LABS, IMPACT documented in this encounterSt. Mary'S Medical Center11-30-2022 History and physical note * Fatimah Salcedo [...] fevers. Neuro: No history of TIA's, stroke, BUFFING AND POLISHING WHEEL REPAIRER tumor, impaired sensorium, hemiplegia, paraplegia or quadraplegia. No neurological symptoms or problems. Respiratory: No history of current cough or dyspnea, or pneumonia in the past 6 weeks. No history of respiratory/pulmonary symptoms or problems. Cardiovascular: Negative for Recent [place], Angina, Arrhythmia, CAD, Chest Pain, PVD, Valvular Heart Disease, DVT/PE+HTN, +HF Follows with cardiology Dr. Casey Castandea GI: Negative for PUD, Nausea, Vomiting, Abdominal [...] BLOCK ABNORMAL ECG ECHO 02/27/22 scanned into [facility] Assessment/Plan Hypertensive heart disease with heart failure (HCC) -BP elevated in office 171/70, 170/72, patient reports he has not taken any of his medications yet today -denies cardiac symptoms -EF 55% on echo 02/2022 scanned into [facility] -on hydralazine, losartan, isosorbide dinitrate, and Jardiance [...] service. Requested most recent office note from instructor correspondence school, Dr. Mason Castaneda. Planned Anesthetic: General Instructions Given to Patient: Instructions located in the after visit summary. Patient given verbal and written preop instructions and voices comprehension and compliance. SIGNATURE: Fatimah Salcedo PA-C PATIENT NAME: Jua nJose Austin DATE: September 12, 2022 TIME: 11:37 AM documented in this encounterSt. Mary'S Medical Center11-30-2022 Instructions* Patient Instructions* Fatimah Salcedo PA-C - 09/12/2022 11:21 AM EST PATIENT PREOPERATIVE INSTRUCTIONS Rita Bhatt MD has scheduled you for your procedure at this surgery center: [facility] [place] Scheduling Office: [phone] --[address] [place] [address]. Please read below carefully for your personalized [...] Procedures: - YOU MUST HAVE A RESPONSIBLE AQUARIUM SPECIALIST TAKE YOU HOME. A XEROX MACHINE ASSEMBLER OR CIGAR PACKER AND SORTER CANNOT BE MADE A RESPONSIBLE AQUARIUM SPECIALIST. - We recommend that a responsible [...] call the Saturday before. Your surgeon s child care leader will tell you what time to call the office. - If you have not reached the departmental child care leader by 5 P.M., call [phone] after 5 P.M. the day before your surgery. Please be aware that emergency situations arise, which may delay or change your surgical time. If this happens, we will notify you as soon as possible and regret any inconvenience. If you already have an Advance Directive, please fax a copy to [phone] or email to for it to be [...] day. Fatimah Salcedo PA-C documented in this encounterSt. Mary'S [facility] Center10-17-2022 Evaluation note* Encounter Date Diagnosis Assessment Notes Treatment Notes Treatment Clinical Notes Jul, Left sided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 (ICD-10 - K51.50) [facility] Other 06-13-2022 History of Present illness Narrative* Jimmy Tejada PA-C - 03/26/2022 5:41 PM EDT This Team Access Model visit is a virtual encounter. It required patient- provider interaction for the medical decision making as documented below. Chief complaint: Preop teaching [facility] PRE-OP NOTE Juan Jose Austin is a 81 year old male. Pre-op Date: March 26, 2022 Date of Procedure: 03/28/22 Does the patient have an active COVID-19 test in [facility]? N/A Procedure/Surgery: LASER CYSTOURETHROSCOPY W/ URETEROSCOPY AND/OR [...] minutes Jimmy Tejada PA-C documented in this encounterSt. Mary'S Medical Center05-31-2022 History of Present illness Narrative* Rita Bhatt MD - 03/13/2022 2:10 PM EDT VIRTUAL VISIT PROGRESS NOTE This is a virtual visit using [employer] video visit. It required patient-provider interaction for [...] 1 tablet by mouth once daily. Fish Oil-[place]-3 Fatty Acids (FISH OIL) 300-1,000 mg cap [...] the date of the service which included aptn-ci-mljg patient care, completing clinical documentation, obtaining and/or reviewing separately obtained history and counseling and educating the patient/family/caregiver Scribe Attestation: By signing my name below, I, Gely Soriano, attest that this documentation has been prepared underthe direction and in the presence of Dr. Rita Bhatt MD. Electronically signed: Wendy Ahn, March 13, 2022 2:39 PM I, Rita Bhatt MD, personally performed the services described in this documentation. All medical record entries made by the wendy were at my direction and in my presence. I have reviewed the chart and discharge instructions (if applicable) and agree that the record reflects my personal performance and is accurate and complete. Rita Bhatt MD documented in this encounterSt. Mary'S Medical Center05-26-2022 Evaluation note* Encounter Date Diagnosis Assessment Notes Treatment Notes Treatment Clinical Notes February, Left sided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 (ICD-10 - K51.50) PATIENT TO CONTINUE ON THE MEDICATION DIRECTED. February, Malignant neoplasm of right kidney (ICD-10 - C64.1) [facility] Other 05-23-2022 History of Present illness Narrative* [...] justify the risks. He will see Dr. Bhtat next week for a repeat endoscopy and response assessment. Follow-up as needed. Soren Perea MD I spent a total of 25 minutes on the date of the service which included preparing to see the patient, fqjw-nh-rizk patient care, completing clinical documentation, obtaining and/or reviewing separately obtained history, performing a medically appropriate examination, counseling and educating the pat ient/family/caregiver, ordering medications, tests, or procedures, independently interpreting results (not separately reported) and communicating results to the patient/family/caregiver. documented in this encounterSt. Mary'S Medical Center05-09-2022 History of Present illness Narrative* Corazon Maxwell [...] weeks. Corazon Maxwell PA-C documented in this encounterSt. Mary'S Medical Center05-02-2022 History of Present illness Narrative* Soren Perea [...] which included preparing to see the patient, lsqh-es-uyds patient care, completing clinical documentation, obtaining and/or reviewing separately obtained history, performing a medically appropriate examination, counseling and educating the pat ient/family/caregiver, ordering medications, tests, or procedures, independently interpreting results (not separately reported) and communicating results to the patient/family/caregiver. documented in this encounterSt. Mary'S Medical Center04-25-2022 History of Present illness Narrative* Soren Perea [...] which included preparing to see the patient, fopi-vd-cnck patient care, completing clinical documentation, obtaining and/or reviewing separately obtained history, performing a medically appropriate examination, counseling and educating the pat ient/family/caregiver, ordering medications, tests, or procedures, independently interpreting results (not separately reported) and communicating results to the patient/family/caregiver. documented in this encounterSt. Mary'S Medical Center04-11-2022 History of Present illness Narrative* Belia Martínez RN - 01/22/2022 1:27 PM EDT . documented in this encounterSt. Mary'S Medical Center04-04-2022 History of Present illness Narrative* Irma Ariza RN - 01/15/2022 1:38 PM EDT . documented in this encounterSt. Mary'S Medical Center04-04-2022 History of Present illness Narrative* Corazon Maxwell [...] 8. Corazon Maxwell PA-C documented in this encounterSt. Mary'S Medical Center03-28-2022 History of Present illness Narrative* Soren Perea [...] Blood work today shows platelet count of [id number]. I will hold treatment today and continue with cycle 3 day 1 in a week. The plan is to repeat endoscopy evaluation after 3-6 cycles of chemotherapy based on tolerance. Soren Perea MD I spent a total of 20 minutes on the date of the service which included preparing to see the patient, qolv-mb-xasi patient care, completing clinical documentation, obtaining and/or reviewing separately obtained history, performing a medically appropriate examination, counseling and educating the pat ient/family/caregiver, ordering medications, tests, or procedures, independently interpreting results (not separately reported) and communicating results to the patient/family/caregiver. documented in this encounterSt. Mary'S Medical Center09-25-2020 History of Present illness Narrative* Linda Piña (LU Snyder - 07/08/2020 11:20 AM EDT Radiology Service [...] 2020 TIME: 11:15 AM [facility] Future Appointments Appointment Date:12/18/2022 01:00:00 PM Scheduled Provider:Jian RODRIGUEZ MD Location:[facility] Appointment Type:URO Procedure 15 min [facility] Evaluation note* Diagnosis Malignant neoplasm of ureter, unspecified laterality (HCC)- Primary [facility]* Diagnosis Malignant neoplasm of ureter, unspecified laterality (HCC)- Primary [facility]* Diagnosis Malignant neoplasm of ureter, unspecified laterality (HCC)- Primary documented [facility]* Diagnosis Malignant neoplasm of ureter, unspecified laterality (HCC)- Primary documented [facility]* Diagnosis Malignant neoplasm of ureter, unspecified laterality (HCC)- Primary documented in [facility]* Diagnosis Malignant neoplasm of ureter, unspecified laterality (HCC)- Primary documented in this [facility]* Diagnosis Malignant neoplasm of ureter, unspecified laterality (HCC)- Primary documented [facility]* Diagnosis Malignant neoplasm of ureter, unspecified laterality (HCC)- Primary documented in [facility]* Diagnosis Urothelial carcinoma (HCC)- Primary Other malignant neoplasm without specification of site Urothelial carcinoma (HCC) Other malignant neoplasm without specification of site documented in this encounter [facility] note* Diagnosis Urothelial carcinoma (HCC)- Primary Other malignant neoplasm without specification of site Urothelial carcinoma (HCC) Other malignant neoplasm without specification of site documented in this [facility] note* Diagnosis 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, unspecified laterality (HCC)- Primary Acute cystitis without hematuria Acute cystitis documented in this [facility] note* Diagnosis Urothelial carcinoma (HCC)- Primary Other malignant neoplasm without specification of site Urothelial carcinoma (HCC) Other malignant neoplasm without specification of site documented in this encounter [facility] note* Diagnosis Pre-op evaluation- Primary Preoperative examination, unspecified Hypertensive heart disease with heart failure (HCC) 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 Gastro-esophageal reflux disease without esophagitis Esophageal reflux 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 Stage 3 chronic kidney disease, unspecified whether stage 3a or 3b CKD (HCC) 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, 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, except renal pelvis (HCC) Malignant neoplasm of kidney, except pelvis Malignant neoplasm of urinary bladder, unspecified site (HCC) [facility] Diagnosis Urothelial carcinoma (HCC)- Primary Other malignant neoplasm without specification of site Malignant neoplasm of right kidney, except renal pelvis (HCC) Malignant neoplasm of kidney, except pelvis Malignant neoplasm of urinary bladder, unspecified site (HCC) [facility]* Diagnosis Screening for genitourinary condition Screening for other and unspecified genitourinary condition Malignant neoplasm of right kidney, except renal pelvis (HCC) Malignant neoplasm of kidney, except pelvis Malignant neoplasm of urinary bladder, unspecified site (HCC) [facility]* Diagnosis 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, unspecified laterality (HCC)- Primary [facility]No [facility] Other Evaluation note* Diagnosis CELSO (acute kidney injury) (HCC)- Primary Acute kidney failure, unspecified [facility]* Diagnosis 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 Malignant neoplasm of other specified sites of bladder documented in this [facility] note* Diagnosis 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 Malignant neoplasm of other specified sites of bladder Malignant neoplasm of right kidney, except renal pelvis (HCC) Malignant neoplasm of kidney, except pelvis Malignant neoplasm of ureter, unspecified laterality (HCC) [facility]* Diagnosis 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 Malignant neoplasm of other specified sites of bladder Malignant neoplasm of ureter, unspecified laterality (HCC) [facility]* Diagnosis Malignant neoplasm of [...] disorder of thyroid [facility] Diagnosis Malignant neoplasm of [...] and fatigue [facility] [...] malaise and fatigue [facility]* Diagnosis Malignant neoplasm of [...] and fatigue 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 Narrative - Reported* Type Description Date Medical History colitis Medical History hyperlipidemia Medical History HTN Medical History KIDNEY CANCER Surgical History KIDNEY REMOVED Insurance [employer] [facility] Other History general Narrative - Reported* Type Description Date Medical History colitis Medical History hyperlipidemia Medical History HTN Medical History KIDNEY CANCER Surgical History KIDNEY REMOVED Hospitalization History No Hospitalization histo ry information [facility] Other Hospital course Narrative No data available for this section [facility] Progress note No data available for this section [facility] Reason for referral (narrative)* Outpatient Procedure (Routine) - Pending Review Specialty Diagnoses / Procedures Referred By Brian t Referred To Contact [facility] Diagnoses 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, unspecified laterality (HCC) Procedures ECG COMPLETE ECG ROUTINE ECG W/LEAST 12 LDS W/I&R Rita Bhatt MD [address] [address] [place] [address] [place] [address] Referral ID Status Reason Start Date Expiration Date Visits Requested Visits Authorized [id number] Pending Review Auto-Generat ed Referral 03/13/2022 03/13/2023 1 1 [facility] for referral (narrative)* Outpatient Procedure (Routine) - Closed Specialty Diagnoses / Procedures Referred By Brian t Referred To Contact [facility] Diagnoses Pre-op evaluation Procedures ECG COMPLETE ECG ROUTINE ECG W/LEAST 12 LDS W/I&R Fatimah Salcedo PA-C [address] [address] [facility] [place] [address] Referral ID Status Reason Start Date Expiration Date V isits Requested Visits Authorized [id number] Closed Auto-Generate d Referral 09/12/2022 09/12/2023 1 1 [facility] Summary Purpose Family History No Family History Records FoundNo Family History Records FoundNo Family History Records FoundNo Family History Records FoundNo Family History Records FoundNo Family History Records FoundNo Family History Records Found Advance Directives No Advanced Directives Records FoundDocuments on File Type Date Recorded Patient Risk Investigator Expl anation Advance Directive(s) 11/01/2021 2:32 PM Advance Directive(s) 10/28/2019 10:37 AM Advance Directive(s) 09/30/2019 10:07 AM Advance Directive(s) 09/15/2019 2:16 PM Advance Directive(s) 08/11/2019 11:16 AM Advance Directive(s) 08/11/2019 11:21 AM Documents on File Type Date Recorded Patient Risk Investigator Expl anation Advance Directive(s) 11/01/2021 2:32 PM Advance Directive(s) 10/28/2019 10:37 AM Advance Directive(s) 09/30/2019 10:07 AM Advance Directive(s) 09/15/2019 2:16 PM Advance Directive(s) 08/11/2019 11:16 AM Advance Directive(s) 08/11/2019 11:21 AM Documents on File Type Date Recorded Patient Risk Investigator Expl anation Advance Directive(s) 03/14/2022 4:48 PM Advance Directive(s) 11/01/2021 2:32 PM Advance Directive(s) 10/28/2019 10:37 AM Advance Directive(s) 09/30/2019 10:07 AM Advance Directive(s) 09/15/2019 2:16 PM Advance Directive(s) 08/11/2019 11:16 AM Advance Directive(s) 08/11/2019 11:21 AM Documents on File Type Date Recorded Patient Risk Investigator Expl anation Advance Directive(s) 03/14/2022 4:48 PM Advance Directive(s) 11/01/2021 2:32 PM Advance Directive(s) 10/28/2019 10:37 AM Advance Directive(s) 09/30/2019 10:07 AM Advance Directive(s) 09/15/2019 2:16 PM Advance Directive(s) 08/11/2019 11:16 AM Advance Directive(s) 08/11/2019 11:21 AM Documents on File Type Date Recorded Patient Risk Investigator Expl anation Advance Directive(s) 05/04/2022 1:37 PM Advance Directive(s) 03/14/2022 4:48 PM Advance Directive(s) 11/01/2021 2:32 PM Advance Directive(s) 10/28/2019 10:37 AM Advance Directive(s) 09/30/2019 10:07 AM Advance Directive(s) 09/15/2019 2:16 PM Advance Directive(s) 08/11/2019 11:16 AM Advance Directive(s) 08/11/2019 11:21 AM Documents on File Type Date Recorded Patient Risk Investigator Expl anation Advance Directive(s) 08/11/2019 11:21 AM Documents on File Type Date Recorded Patient Risk Investigator Expl anation Advance Directive(s) 08/11/2019 11:21 AM [...] Referral Specialty Diagnoses / Procedures Referred By Brian t Referred To Contact CT IMAGING Diagnoses Malignant 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) Procedures CT CHEST W IVCON DIAGNOSTIC COMPUTED TOMOGRAPHY THORAX W/CONTRAST Caesar Vazquez MD [address] [place] [address] [place] [address] Ct Imaging Referral ID Status Reason Start Date Expiration Date Visits Requested Visits Authorized [id number] Authorized Auto-Generat ed Referral 05/16/2023 06/14/2024 1 1 Specialty Diagnoses / Procedures Referred By Alexac t Referred To Contact CT IMAGING Diagnoses Malignant 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) Procedures CT ABD/PEL W IVCON CT ABD & PELVIS W/CONTRAST Caesar Vazquez MD [address] [place] [address] [place] [address] Ct Imaging Referral ID Status Reason Start Date Expiration Date Visits Requested Visits Authorized [id number] Authorized Auto-Generat ed Referral 05/16/2023 06/14/2024 1 1 Additional Source Comments (unrecognized sect ion and content) No Status Records FoundNo Status Records FoundNo Status Records FoundNo Status Records FoundNo Status Records FoundNo Status Records FoundNo Status Records Found INFORMATION SOURCE (unrecogn ized section and content) DATE CREATED AUTHOR 04/30/2018 [facility] DATE CREATED AUTHOR AUTHOR'S ORGANIZ ATION 03/06/2019 [facility] DATE CREATED AUTHOR AUTHOR'S ORGANIZ ATION 03/24/2023 [facility] [place] [facility] DATE CREATED AUTHOR AUTHOR'S ORGANIZ ATION 04/27/2023 [facility] DATE CREATED AUTHOR AUTHOR'S ORGANIZ ATION 11/03/2023 [facility] DATE CREATED AUTHOR AUTHOR'S ORGANIZ ATION 12/26/2023 [facility] DATE CREATED AUTHOR AUTHOR'S ORGANIZ ATION 01/22/2024 [facility] Source Comments (unrecognize d section and content) In the event this informatio n is protected by the Federal Confidentiality of Alcohol and Drug Abuse Patient Records regulations: The Federal rules restrict any use of the information to criminally investigate or prosecute any alcohol or drug abuse patient.[facility] CenterIn the event this information is protected by the Federal Confidentiality of Alcohol and Drug Abuse Patient Records regulations: The Federal rules restrict any use of the information to criminally investigate or prosecute any alcohol or drug abuse patient.[facility] CenterIn the event this information is protected by the Federal Confidentiality of Alcohol and Drug Abuse Patient Records regulations: The Federal rules restrict any use of the information to criminally investigate or prosecute any alcohol or drug abuse patient.[facility] CenterIn the event this information is protected by the Federal Confidentiality of Alcohol and Drug Abuse Patient Records regulations: The Federal rules restrict any use of the information to criminally investigate or prosecute any alcohol or drug abuse patient.[facility] CenterIn the event this information is protected by the Federal Confidentiality of Alcohol and Drug Abuse Patient Records regulations: The Federal rules restrict any use of the information to criminally investigate or prosecute any alcohol or drug abuse patient.[facility] CenterIn the event this information is protected by the Federal Confidentiality of Alcohol and Drug Abuse Patient Records regulations: The Federal rules restrict any use of the information to criminally investigate or prosecute any alcohol or drug abuse patient.[facility] CenterIn the event this information is protected by the Federal Confidentiality of Alcohol and Drug Abuse Patient Records regulations: The Federal rules restrict any use of the information to criminally investigate or prosecute any alcohol or drug abuse patient.[facility] CenterIn the event this information is protected by the Federal Confidentiality of Alcohol and Drug Abuse Patient Records regulations: The Federal rules restrict any use of the information to criminally investigate or prosecute any alcohol or drug abuse patient.[facility] CenterIn the event this information is protected by the Federal Confidentiality of Alcohol and Drug Abuse Patient Records regulations: The Federal rules restrict any use of the information to criminally investigate or prosecute any alcohol or drug abuse patient.[facility] CenterIn the event this information is protected by the Federal Confidentiality of Alcohol and Drug Abuse Patient Records regulations: The Federal rules restrict any use of the information to criminally investigate or prosecute any alcohol or drug abuse patient.[facility] CenterIn the event this information is protected by the Federal Confidentiality of Alcohol and Drug Abuse Patient Records regulations: The Federal rules restrict any use of the information to criminally investigate or prosecute any alcohol or drug abuse patient.[facility] CenterIn the event this information is protected by the Federal Confidentiality of Alcohol and Drug Abuse Patient Records regulations: The Federal rules restrict any use of the information to criminally investigate or prosecute any alcohol or drug abuse patient.[facility] CenterIn the event this information is protected by the Federal Confidentiality of Alcohol and Drug Abuse Patient Records regulations: The Federal rules restrict any use of the information to criminally investigate or prosecute any alcohol or drug abuse patient.[facility] CenterIn the event this information is protected by the Federal Confidentiality of Alcohol and Drug Abuse Patient Records regulations: The Federal rules restrict any use of the information to criminally investigate or prosecute any alcohol or drug abuse patient.[facility] CenterIn the event this information is protected by the Federal Confidentiality of Alcohol and Drug Abuse Patient Records regulations: The Federal rules restrict any use of the information to criminally investigate or prosecute any alcohol or drug abuse patient.[facility] CenterIn the event this information is protected by the Federal Confidentiality of Alcohol and Drug Abuse Patient Records regulations: The Federal rules restrict any use of the information to criminally investigate or prosecute any alcohol or drug abuse patient.[facility] CenterIn the event this information is protected by the Federal Confidentiality of Alcohol and Drug Abuse Patient Records regulations: The Federal rules restrict any use of the information to criminally investigate or prosecute any alcohol or drug abuse patient.[facility] CenterIn the event this information is protected by the Federal Confidentiality of Alcohol and Drug Abuse Patient Records regulations: The Federal rules restrict any use of the information to criminally investigate or prosecute any alcohol or drug abuse patient.[facility] CenterIn the event this information is protected by the Federal Confidentiality of Alcohol and Drug Abuse Patient Records regulations: The Federal rules restrict any use of the information to criminally investigate or prosecute any alcohol or drug abuse patient.[facility] CenterIn the event this information is protected by the Federal Confidentiality of Alcohol and Drug Abuse Patient Records regulations: The Federal rules restrict any use of the information to criminally investigate or prosecute any alcohol or drug abuse patient.[facility] CenterIn the event this information is protected by the Federal Confidentiality of Alcohol and Drug Abuse Patient Records regulations: The Federal rules restrict any use of the information to criminally investigate or prosecute any alcohol or drug abuse patient.[facility] CenterIn the event this information is protected by the Federal Confidentiality of Alcohol and Drug Abuse Patient Records regulations: The Federal rules restrict any use of the information to criminally investigate or prosecute any alcohol or drug abuse patient.[facility] CenterIn the event this information is protected by the Federal Confidentiality of Alcohol and Drug Abuse Patient Records regulations: The Federal rules restrict any use of the information to criminally investigate or prosecute any alcohol or drug abuse patient.[facility] CenterIn the event this information is protected by the Federal Confidentiality of Alcohol and Drug Abuse Patient Records regulations: The Federal rules restrict any use of the information to criminally investigate or prosecute any alcohol or drug abuse patient.[facility] CenterIn the event this information is protected by the Federal Confidentiality of Alcohol and Drug Abuse Patient Records regulations: The Federal rules restrict any use of the information to criminally investigate or prosecute any alcohol or drug abuse patient.[facility] CenterIn the event this information is protected by the Federal Confidentiality of Alcohol and Drug Abuse Patient Records regulations: The Federal rules restrict any use of the information to criminally investigate or prosecute any alcohol or drug abuse patient.[facility] CenterIn the event this information is protected by the Federal Confidentiality of Alcohol and Drug Abuse Patient Records regulations: The Federal rules restrict any use of the information to criminally investigate or prosecute any alcohol or drug abuse patient.[facility] CenterIn the event this information is protected by the Federal Confidentiality of Alcohol and Drug Abuse Patient Records regulations: The Federal rules restrict any use of the information to criminally investigate or prosecute any alcohol or drug abuse patient.[facility] CenterIn the event this information is protected by the Federal Confidentiality of Alcohol and Drug Abuse Patient Records regulations: The Federal rules restrict any use of the information to criminally investigate or prosecute any alcohol or drug abuse patient.[facility] CenterIn the event this information is protected by the Federal Confidentiality of Alcohol and Drug Abuse Patient Records regulations: The Federal rules restrict any use of the information to criminally investigate or prosecute any alcohol or drug abuse patient.[facility] CenterIn the event this information is protected by the Federal Confidentiality of Alcohol and Drug Abuse Patient Records regulations: The Federal rules restrict any use of the information to criminally investigate or prosecute any alcohol or drug abuse patient.[facility] CenterIn the event this information is protected by the Federal Confidentiality of Alcohol and Drug Abuse Patient Records regulations: The Federal rules restrict any use of the information to criminally investigate or prosecute any alcohol or drug abuse patient.[facility] CenterIn the event this information is protected by the Federal Confidentiality of Alcohol and Drug Abuse Patient Records regulations: The Federal rules restrict any use of the information to criminally investigate or prosecute any alcohol or drug abuse patient.[facility] CenterIn the event this information is protected by the Federal Confidentiality of Alcohol and Drug Abuse Patient Records regulations: The Federal rules restrict any use of the information to criminally investigate or prosecute any alcohol or drug abuse patient.[facility] CenterIn the event this information is protected by the Federal Confidentiality of Alcohol and Drug Abuse Patient Records regulations: The Federal rules restrict any use of the information to criminally investigate or prosecute any alcohol or drug abuse patient.[facility] CenterIn the event this information is protected by the Federal Confidentiality of Alcohol and Drug Abuse Patient Records regulations: The Federal rules restrict any use of the information to criminally investigate or prosecute any alcohol or drug abuse patient.[facility] CenterIn the event this information is protected by the Federal Confidentiality of Alcohol and Drug Abuse Patient Records regulations: The Federal rules restrict any use of the information to criminally investigate or prosecute any alcohol or drug abuse patient.[facility] CenterIn the event this information is protected by the Federal Confidentiality of Alcohol and Drug Abuse Patient Records regulations: The Federal rules restrict any use of the information to criminally investigate or prosecute any alcohol or drug abuse patient.[facility] CenterIn the event this information is protected by the Federal Confidentiality of Alcohol and Drug Abuse Patient Records regulations: The Federal rules restrict any use of the information to criminally investigate or prosecute any alcohol or drug abuse patient.[facility] CenterIn the event this information is protected by the Federal Confidentiality of Alcohol and Drug Abuse Patient Records regulations: The Federal rules restrict any use of the information to criminally investigate or prosecute any alcohol or drug abuse patient.[facility] CenterIn the event this information is protected by the Federal Confidentiality of Alcohol and Drug Abuse Patient Records regulations: The Federal rules restrict any use of the information to criminally investigate or prosecute any alcohol or drug abuse patient.[facility] CenterIn the event this information is protected by the Federal Confidentiality of Alcohol and Drug Abuse Patient Records regulations: The Federal rules restrict any use of the information to criminally investigate or prosecute any alcohol or drug abuse patient.[facility] CenterIn the event this information is protected by the Federal Confidentiality of Alcohol and Drug Abuse Patient Records regulations: The Federal rules restrict any use of the information to criminally investigate or prosecute any alcohol or drug abuse patient.[facility] CenterIn the event this information is protected by the Federal Confidentiality of Alcohol and Drug Abuse Patient Records regulations: The Federal rules restrict any use of the information to criminally investigate or prosecute any alcohol or drug abuse patient.[facility] CenterIn the event this information is protected by the Federal Confidentiality of Alcohol and Drug Abuse Patient Records regulations: The Federal rules restrict any use of the information to criminally investigate or prosecute any alcohol or drug abuse patient.[facility] CenterIn the event this information is protected by the Federal Confidentiality of Alcohol and Drug Abuse Patient Records regulations: The Federal rules restrict any use of the information to criminally investigate or prosecute any alcohol or drug abuse patient.[facility] CenterIn the event this information is protected by the Federal Confidentiality of Alcohol and Drug Abuse Patient Records regulations: The Federal rules restrict any use of the information to criminally investigate or prosecute any alcohol or drug abuse patient.[facility] CenterIn the event this information is protected by the Federal Confidentiality of Alcohol and Drug Abuse Patient Records regulations: The Federal rules restrict any use of the information to criminally investigate or prosecute any alcohol or drug abuse patient.[facility] CenterIn the event this information is protected by the Federal Confidentiality of Alcohol and Drug Abuse Patient Records regulations: The Federal rules restrict any use of the information to criminally investigate or prosecute any alcohol or drug abuse patient.[facility] CenterIn the event this information is protected by the Federal Confidentiality of Alcohol and Drug Abuse Patient Records regulations: The Federal rules restrict any use of the information to criminally investigate or prosecute any alcohol or drug abuse patient.[facility] CenterIn the event this information is protected by the Federal Confidentiality of Alcohol and Drug Abuse Patient Records regulations: The Federal rules restrict any use of the information to criminally investigate or prosecute any alcohol or drug abuse patient.[facility] CenterIn the event this information is protected by the Federal Confidentiality of Alcohol and Drug Abuse Patient Records regulations: The Federal rules restrict any use of the information to criminally investigate or prosecute any alcohol or drug abuse patient.[facility] Reason for Visit (unrecogniz ed section and content) Reason Comments malignant neoplasm of ureter follow up t reatment Reason Comments ureter cancer Specialty Diagnoses / Procedures Referred By Contac t Referred To Contact Diagnoses Malignant neoplasm of ureter (HCC) Soren Perea MD [facility] [place] [address] [facility] [facility] [place] [address] Referral ID Status Reason Start Date Expiration Date V isits Requested Visits Authorized [id number] Authorized 11/14/2021 02/12/2022 99 99 Reason Comments [...] Pembrolizumab Specialty Diagnoses / Procedures Referred By [facility] t Referred To Contact Diagnoses Malignant neoplasm of ureter, 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, 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) Caesar Vazquez MD [address] [place] [address] [facility] [address] [place] [address] Referral ID Status Reason Start Date Expiration Date V isits Requested Visits Authorized [id number] Authorized 12/24/2022 03/24/2023 99 99 Reason Comments [...] t Specialty Diagnoses / Procedures Referred By [facility] t Referred To Contact Diagnoses Malignant neoplasm of ureter, 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, 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) Procedures INJ PEMBROLIZUMAB Caesar Vazquez MD [address] [place] [address] [facility] [place] [place] [address] Referral ID Status Reason Start Date Expiration Date V isits Requested Visits Authorized [id number] Authorized 12/24/2022 10/13/2024 99 99 Reason Comments Bladder Cancer OTV Care Teams (unrecognized sec tion and content) Senior Audit Manager Relationship Specialty Start Date End Date Yoan Sneed MD [address] [place] [address] PCP - General Family Practice 07/30/19 Jian Rodriguez MD [address] [place] [address] Physician Urology 10/28/19 Lauren Mckeon, RN [address] [facility] [place] [address] Specialty Journeyman Meat Cutter Hematology/Oncology 11/21/21 Soren Perea MD [address] [facility] [address] [place], [facility] Physician Hematology/Oncology 11/21/21 Corazon Maxwell, NESHAC [address] [facility] [address] [place], [facility] Physician Manager Garage Hematology/Oncology 11/21/21 Senior Audit Manager Relationship Specialty Start Date End Date Yoan Sneed MD [address] [place] [address] PCP - General Family Practice 07/30/19 Jian Rodriguez MD [address] [place] [address] Physician Urology 10/28/19 Lauren Mckeon RN [address] [facility] [place] [address] Specialty Journeyman Meat Cutter Hematology/Oncology 11/21/21 Soren Perea MD [address] [facility] [place] [address] Physician Hematology/Oncology 11/21/21 Corazon Maxwell PAEnocC [address] [place] [address] Physician Manager Garage Hematology/Oncology 11/21/21 Senior Audit Manager Relationship Specialty Start Date End Date Yoan Sneed MD [address] [place] [address] PCP - General Family Practice 07/30/19 Jian Rodriguez MD [address] [place] [address] Physician Urology 10/28/19 Lauren Mckeon, RN [address] [facility] [place] [address] Specialty Journeyman Meat Cutter Hematology/Oncology 11/21/21 Soren Perea MD [address] [facility] [place] [address] Physician Hematology/Oncology 11/21/21 Corazon Maxwell, PAEnocC [address] [facility] [place] [address] Physician Manager Garage Hematology/Oncology 11/21/21 Senior Audit Manager Relationship Specialty Start Date End Date Yoan Sneed MD [address] [place] [address] PCP - General Family Practice 07/30/19 Jian Rodriguez MD [address] [place] [address] Physician Urology 10/28/19 Lauren Mckeon, RN [address] [facility] [place] [address] Specialty Journeyman Meat Cutter Hematology/Oncology 11/21/21 Soren Perea MD [address] [facility] [place] [address] Physician Hematology/Oncology 11/21/21 Corazon Maxwell, PAEnocC [address] [facility] [place] [address] Physician Manager Garage Hematology/Oncology 11/21/21 Senior Audit Manager Relationship Specialty Start Date End Date Yoan Sneed MD [address] [place] [address] PCP - General Family Practice 07/30/19 Jian Rodriguez MD [address] [place] [address] Physician Urology 10/28/19 Lauren Mckeon, RN [address] [place] [address] Specialty Journeyman Meat Cutter Hematology/Oncology 11/21/21 Soren Perea MD [address] [facility] [place] [address] Physician Hematology/Oncology 11/21/21 Corazon Maxwell PA-C [address] [facility] [place] [address] Physician Manager Garage Hematology/Oncology 11/21/21 Senior Audit Manager Relationship Specialty Start Date End Date Yoan Sneed MD [address] [place] [address] PCP - General Family Practice 07/30/19 Jian Rodriguez MD [address] [place] [address] Physician Urology 10/28/19 aLuren Mckeon, RN [address] [place] [address] Specialty Journeyman Meat Cutter Hematology/Oncology 11/21/21 Soren Perea MD [address] [facility] [address] [place], [facility] Physician Hematology/Oncology 11/21/21 Corazon Maxwell PA-C [address] [facility] [place] [address] Physician Manager Garage Hematology/Oncology 11/21/21 Senior Audit Manager Relationship Specialty Start Date End Date Yoan Sneed MD [address] [place] [address] PCP - General Family Practice 07/30/19 Jian Rodriguez MD [address] [place] [address] Physician Urology 10/28/19 Lauren Mckeon, RN [address] [facility] [place] [address] Specialty Journeyman Meat Cutter Hematology/Oncology 11/21/21 Soren Perea MD [address] [facility] [place] [address] Physician Hematology/Oncology 11/21/21 Corazon Maxwell PA-C [address] [facility] [place] [address] Physician Manager Garage Hematology/Oncology 11/21/21 Senior Audit Manager Relationship Specialty Start Date End Date Yoan Sneed MD [address] [place] [address] PCP - General Family Practice 07/30/19 Jian Rodriguez MD [address] [place] [address] Physician Urology 10/28/19 Lauren Mckeon, RN [address] [facility] [place] [address] Specialty Journeyman Meat Cutter Hematology/Oncology 11/21/21 Soren Perea MD [address] [facility] [place] [address] Physician Hematology/Oncology 11/21/21 Corazon Maxwell PA-C [address] [facility] [place] [address] Physician Manager Garage Hematology/Oncology 11/21/21 Senior Audit Manager Relationship Specialty Start Date End Date Yoan Sneed MD [address] [place] [address] PCP - General Family Practice 07/30/19 Jian Rodriguez MD [address] [place] [address] Physician Urology 10/28/19 Lauren Mckeon, RN [address] [facility] [place] [address] Specialty Journeyman Meat Cutter Hematology/Oncology 11/21/21 Soren Perea MD [address] [facility] [place] [address] Physician Hematology/Oncology 11/21/21 Corazon Maxwell PA-C [address] [facility] [place] [address] Physician Manager Garage Hematology/Oncology 11/21/21 Senior Audit Manager Relationship Specialty Start Date End Date Yoan Sneed MD [address] [place] [address] PCP - General Family Practice 07/30/19 Jian Rodriguez MD [address] [place] [address] Physician Urology 10/28/19 Lauren Mckeon RN [address] [facility] [place] [address] Specialty Journeyman Meat Cutter Hematology/Oncology 11/21/21 Soren Perea MD [address] [facility] [address] [place], [facility] Physician Hematology/Oncology 11/21/21 Corazon Maxwell PA-C [address] [facility] [place] [address] Physician Manager Garage Hematology/Oncology 11/21/21 Senior Audit Manager Relationship Specialty Start Date End Date Yoan Sneed MD [address] [place] [address] PCP - General Family Practice 07/30/19 Jian Rodriguez MD [address] [place] [address] Physician Urology 10/28/19 Lauren Mckeon RN [address] [facility] [place] [address] Specialty Journeyman Meat Cutter Hematology/Oncology 11/21/21 Soren Perea MD [address] [facility] [place] [address] Physician Hematology/Oncology 11/21/21 Corazon Maxwell PA-C [address] [facility] [place] [address] Physician Manager Garage Hematology/Oncology 11/21/21 Senior Audit Manager Relationship Specialty Start Date End Date Yoan Sneed MD [address] [place] [address] PCP - General Family Medicine 07/30/19 Jian Rodriguez MD [address] [place] [address] Physician Urology 10/28/19 Soren Perea MD [address] [facility] [place] [address] Physician Hematology/Oncology 11/21/21 Casey Castaneda MD [address] [facility] [address] [place] [id number] Cardiology 09/12/22 Senior Audit Manager Relationship Specialty Start Date End Date Yoan Sneed MD [address] [place] [address] PCP - General Family Medicine 07/30/19 Jian Rodriguez MD [address] [place] [address] Physician Urology 10/28/19 Soren Perea MD [address] [facility] [place] [address] Physician Hematology/Oncology 11/21/21 Casey Castaneda MD [address] [place] [address] Cardiology 09/12/22 Senior Audit Manager Relationship Specialty Start Date End Date Yoan Sneed MD [address] [place] [address] PCP - General Family Medicine 07/30/19 Jian Rodriguez MD [address] [place] [address] Physician Urology 10/28/19 Soren Perea MD [address] [facility] [place] [address] Physician Hematology/Oncology 11/21/21 Casey Castaneda MD [address] [facility] [address] [place] [address] Cardiology 09/12/22 Senior Audit Manager Relationship Specialty Start Date End Date Yoan Sneed MD [address] [place] [address] PCP - General Family Medicine 07/30/19 Jian Rodriguez MD [address] [place] [address] Physician Urology 10/28/19 Soren Perea MD [address] [facility] [place] [address] Physician Hematology/Oncology 11/21/21 Casey Castaneda MD [address] [facility] [address] [place] [address] Cardiology 09/12/22 Senior Audit Manager Relationship Specialty Start Date End Date Yoan Sneed MD [address] [place] [address] PCP - General Family Medicine 07/30/19 Jian Rodriguez MD [address] [place] [address] Physician Urology 10/28/19 Soren Perea MD [address] [facility] [place] [address] Physician Hematology/Oncology 11/21/21 Casey Castaneda MD [address] [facility] [address] [place] [address] Cardiology 09/12/22 Senior Audit Manager Relationship Specialty Start Date End Date Yoan Sneed MD [address] [place] [address] PCP - General Family Medicine 07/30/19 Jian Rodriguez MD [address] [place] [address] Physician Urology 10/28/19 Soren Perea MD [address] [facility] [place] [address] Physician Hematology/Oncology 11/21/21 Casey Castaneda MD [address] [facility] 1 [place] [address] Cardiology 09/12/22 Senior Audit Manager Relationship Specialty Start Date End Date Yoan Sneed MD PCP - General Family Medicine 07/30/19 Jian Rodriguez MD [address] [place] [address] Physician Urology 10/28/19 Casey Castaneda MD [address] [facility] [address] [place] [address] Cardiology 09/12/22 Caesar Vazquez MD [address] [place] [address] Physician Hematology/Oncology 12/26/22 Margot So, SUNIL [address] [place] [address] Specialty Journeyman Meat Cutter Hematology/Oncology 12/26/22 Wayne Chavez, CONCRETE PIPE MACHINE OPERATOR.[facility] [address] [place] [address] Nurse Practitioner Hematology/Oncology 12/26/22 Senior Audit Manager Relationship Specialty Start Date End Date Yoan Sneed MD PCP - General Family Medicine 07/30/19 Jian Rodriguez MD [address] [place] [address] Physician Urology 10/28/19 Casey Castaneda MD [address] [place] [address] [place] [phone] Cardiology 09/12/22 Caesar Vazquez MD [address] [place] [address] Physician Hematology/Oncology 12/26/22 Margot So RN [address] [place] [address] Specialty Journeyman Meat Cutter Hematology/Oncology 12/26/22 Wayne Chavez, CONCRETE PIPE MACHINE OPERATOR.[facility] [address] [place] [address] Nurse Practitioner Hematology/Oncology 12/26/22 Senior Audit Manager Relationship Specialty Start Date End Date Yoan Sneed MD PCP - General Family Medicine 07/30/19 Jian Rodriguez MD [address] [place] [address] Physician Urology 10/28/19 Casey Castaneda MD [address] [facility] [address] [place] [address] Cardiology 09/12/22 Caesar Vazquez MD [address] [place] [address] Physician Hematology/Oncology 12/26/22 Margot So, RN [address] [place] [address] [place] [address] Specialty Journeyman Meat Cutter Hematology/Oncology 12/26/22 Wayne Chavez, CONCRETE PIPE MACHINE OPERATOR.WORK MEASUREMENT ENGINEER [address] [place] [address] Nurse Practitioner Hematology/Oncology 12/26/22 Senior Audit Manager Relationship Specialty Start Date End Date Yoan Sneed MD PCP - General Family Medicine 07/30/19 Jian Rodriguez MD [address] [place] [address] Physician Urology 10/28/19 Casey Casatneda MD [address] [facility] [place] [address] [place] [address] Cardiology 09/12/22 Caesar Vazquez MD [address] [place] [address] Physician Hematology/Oncology 12/26/22 Margot So, RN [address] [place] [address] Specialty Journeyman Meat Cutter Hematology/Oncology 12/26/22 Wayne Chavez, CONCRETE PIPE MACHINE OPERATOR.WORK MEASUREMENT ENGINEER [address] [place] [address] Nurse Practitioner Hematology/Oncology 12/26/22 Senior Audit Manager Relationship Specialty Start Date End Date Yoan Sneed MD PCP - General Family Medicine 07/30/19 Jian Rodriguez MD [address] [place] [address] Physician Urology 10/28/19 Casey Castaneda MD [address] [place] [address] Cardiology 09/12/22 Caesar Vazquez MD [address] [facility] [place] [address] Physician Hematology/Oncology 12/26/22 Margot So, RN [address] [facility] [place] [address] Specialty Journeyman Meat Cutter Hematology/Oncology 12/26/22 Wayne Chavez, CONCRETE PIPE MACHINE OPERATOR.WORK MEASUREMENT ENGINEER [address] [place] [address] Nurse Practitioner Hematology/Oncology 12/26/22 Senior Audit Manager Relationship Specialty Start Date End Date Yoan Sneed MD PCP - General Family Medicine 07/30/19 Jian Rodriguez MD [address] [place] [address] Physician Urology 10/28/19 Casey Castaneda MD [address] [facility] [address] [place] [phone] Cardiology 09/12/22 Caesar Vazquez MD [address] [facility] [place] [address] Physician Hematology/Oncology 12/26/22 Margot So, RN [address] [facility] [place] [address] Specialty Journeyman Meat Cutter Hematology/Oncology 12/26/22 Wayne Chavez, CONCRETE PIPE MACHINE OPERATOR.WORK MEASUREMENT ENGINEER [address] [facility] [place] [address] Nurse Practitioner Hematology/Oncology 12/26/22 Senior Audit Manager Relationship Specialty Start Date End Date Yoan Sneed MD PCP - General Family Medicine 07/30/19 Jian Rodriguez MD Physician Urology 10/28/19 Casey Castaneda MD [address] [facility] 1 [place] [address] Cardiology 09/12/22 Caesar Vazquez MD [address] [facility] [place] [address] Physician Hematology/Oncology 12/26/22 Margot So, RN [address] [place] [address] Specialty Journeyman Meat Cutter Hematology/Oncology 12/26/22 Wayne Chavez, CONCRETE PIPE MACHINE OPERATOR.WORK MEASUREMENT ENGINEER [address] [place] [address] Nurse Practitioner Hematology/Oncology 12/26/22 Senior Audit Manager Relationship Specialty Start Date End Date Yoan Sneed MD PCP - General Family Medicine 07/30/19 Jian Rodriguez MD Physician Urology 10/28/19 Casey Castaneda MD [address] [facility] 1 [place] [address] Cardiology 09/12/22 Caesar Vazquez MD [address] [facility] [place] [address] Physician Hematology/Oncology 12/26/22 Margot So, SUNIL [address] [place] [address] [place] [address] Specialty Journeyman Meat Cutter Hematology/Oncology 12/26/22 Wayne Chavez, CONCRETE PIPE MACHINE OPERATOR.WORK MEASUREMENT ENGINEER [address] [place] [address] Nurse Practitioner Hematology/Oncology 12/26/22 Senior Audit Manager Relationship Specialty Start Date End Date Yoan Sneed MD PCP - General Family Medicine 07/30/19 Jian Rodriguez MD Physician Urology 10/28/19 Casey Castaneda MD [address] [facility] [address] [place] [address] Cardiology 09/12/22 Caesar Vazquez MD [address] [place] [address] [place] [address] Physician Hematology/Oncology 12/26/22 Margot So, SUNIL [address] [place] [address] Specialty Journeyman Meat Cutter Hematology/Oncology 12/26/22 Wayne Chavez, CONCRETE PIPE MACHINE OPERATOR.WORK MEASUREMENT ENGINEER [address] [place] [address] [place] [address] Nurse Practitioner Hematology/Oncology 12/26/22 Senior Audit Manager Relationship Specialty Start Date End Date Yoan Sneed MD PCP - General Family Medicine 07/30/19 Jian Rodriguez MD Physician Urology 10/28/19 Casey Castaneda MD [address] [facility] [address] [place] [address] Cardiology 09/12/22 Caesar Vazquez MD [address] [facility] [place] [address] Physician Hematology/Oncology 12/26/22 Margot So, SUNIL [address] [facility] [place] [address] Specialty Journeyman Meat Cutter Hematology/Oncology 12/26/22 Wayne Chavez, MARSHA.WORK MEASUREMENT ENGINEER [address] [facility] [place] [address] Nurse Practitioner Hematology/Oncology 12/26/22 Senior Audit Manager Relationship Specialty Start Date End Date Yoan Sneed MD PCP - General Family Medicine 07/30/19 Jian Rodriguez MD Physician Urology 10/28/19 Casey Castaneda MD [address] [facility] [address] [place] [address] Cardiology 09/12/22 Caesar Vazquez MD [address] [facility] [place] [address] Physician Hematology/Oncology 12/26/22 Margot So, SUNIL [address] [place] [address] Specialty Journeyman Meat Cutter Hematology/Oncology 12/26/22 Wayne Chavez, CONCRETE PIPE MACHINE OPERATOR.WORK MEASUREMENT ENGINEER [address] [place] [address] Nurse Practitioner Hematology/Oncology 12/26/22 Senior Audit Manager Relationship Specialty Start Date End Date Yoan Sneed MD PCP - General Family Medicine 07/30/19 Jian Rodriguez MD Physician Urology 10/28/19 Casey Castaneda MD [address] [facility] [address] [place] [address] Cardiology 09/12/22 Caesar Vazquez MD [address] [place] [address] Physician Hematology/Oncology 12/26/22 Margot So RN [address] [place] [address] Specialty Journeyman Meat Cutter Hematology/Oncology 12/26/22 Wayne Chavez, CONCRETE PIPE MACHINE OPERATOR.WORK MEASUREMENT ENGINEER [address] [place] [address] Nurse Practitioner Hematology/Oncology 12/26/22 Senior Audit Manager Relationship Specialty Start Date End Date Yoan Sneed MD PCP - General Family Medicine 07/30/19 Jian Rodriguez MD Physician Urology 10/28/19 Senior Audit Manager Relationship Specialty Start Date End Date Yoan Sneed MD PCP - General Family Medicine 07/30/19 Jian Rodriguez MD Physician Urology 10/28/19 Casey Castaneda MD [address] [facility] [place] [address] Cardiology 09/12/22 Caesar Vazquez MD [address] [place] [address] Physician Hematology/Oncology 12/26/22 Margot So, SUNIL [address] [place] [address] [place] [address] Specialty Journeyman Meat Cutter Hematology/Oncology 12/26/22 Wayne Chavez APRN.WORK MEASUREMENT ENGINEER [address] [place] [address] Nurse Practitioner Hematology/Oncology 12/26/22 Senior Audit Manager Relationship Specialty Start Date End Date Yoan Sneed MD PCP - General Family Medicine 07/30/19 Jian Rodriguez MD Physician Urology 10/28/19 Casey Castaneda MD [address] [facility] [place] [address] Cardiology 09/12/22 Caesar Vazquez MD [address] [place] [address] Physician Hematology/Oncology 12/26/22 Margot So, RN [address] [facility] [place] [address] Specialty Journeyman Meat Cutter Hematology/Oncology 12/26/22 Wayne Chavez, CONCRETE PIPE MACHINE OPERATOR.WORK MEASUREMENT ENGINEER [address] [place] [address] Nurse Practitioner Hematology/Oncology 12/26/22 Senior Audit Manager Relationship Specialty Start Date End Date Yoan Sneed MD PCP - General Family Medicine 07/30/19 Jian Rodriguez MD Physician Urology 10/28/19 Casey Castaneda MD [address] [facility] [address] [place] [address] Cardiology 09/12/22 Caesar Vazquez MD [address] [place] [address] Physician Hematology/Oncology 12/26/22 Margot So, RN [address] [facility] [place] [address] Specialty Journeyman Meat Cutter Hematology/Oncology 12/26/22 Wayne Chavez, CONCRETE PIPE MACHINE OPERATOR.WORK MEASUREMENT ENGINEER [address] [place] [address] [place] [address] Nurse Practitioner Hematology/Oncology 12/26/22 Senior Audit Manager Relationship Specialty Start Date End Date Yoan Sneed MD PCP - General Family Medicine 07/30/19 Jian Rodriguez MD Physician Urology 10/28/19 Casey Castaneda MD [address] [place] [address] Cardiology 09/12/22 Caesar Vazquez MD [address] [place] [address] Physician Hematology/Oncology 12/26/22 Margot So, SUNIL [address] [place] [address] Specialty Journeyman Meat Cutter Hematology/Oncology 12/26/22 Wayne Chavez APRN.WORK MEASUREMENT ENGINEER [address] [place] [address] Nurse Practitioner Hematology/Oncology 12/26/22 Senior Audit Manager Relationship Specialty Start Date End Date Yoan Sneed MD PCP - General Family Medicine 07/30/19 Jian Rodriguez MD Physician Urology 10/28/19 Casey Castaneda MD [address] [place] [address] Cardiology 09/12/22 Caesar Vazquez MD [address] [place] [address] Physician Hematology/Oncology 12/26/22 Margot So, RN [address] [place] [address] Specialty Journeyman Meat Cutter Hematology/Oncology 12/26/22 Wayne Chavez, CONCRETE PIPE MACHINE OPERATOR.WORK MEASUREMENT ENGINEER [address] [facility] [place] [address] Nurse Practitioner Hematology/Oncology 12/26/22 Senior Audit Manager Relationship Specialty Start Date End Date Yoan Sneed MD PCP - General Family Medicine 07/30/19 Jian Rodriguez MD Physician Urology 10/28/19 Casey Castaneda MD [address] [facility] [address] [place] [address] Cardiology 09/12/22 Caesar Vazquez MD [address] [place] [address] Physician Hematology/Oncology 12/26/22 Margot So, SUNIL [address] [place] [address] Specialty Journeyman Meat Cutter Hematology/Oncology 12/26/22 Wayne Chavez, CONCRETE PIPE MACHINE OPERATOR.WORK MEASUREMENT ENGINEER [address] [place] [address] Nurse Practitioner Hematology/Oncology 12/26/22 Senior Audit Manager Relationship Specialty Start Date End Date Yoan Sneed MD PCP - General Family Medicine 07/30/19 Jian Rodriguez MD Physician Urology 10/28/19 Casey Castaneda MD [address] [place] [address] Cardiology 09/12/22 Caesar Vazquez MD [address] [place] [address] Physician Hematology/Oncology 12/26/22 Margot So, SUNIL [address] [place] [address] Specialty Journeyman Meat Cutter Hematology/Oncology 12/26/22 Wayne Chavez APRN.WORK MEASUREMENT ENGINEER [address] [place] [address] Nurse Practitioner Hematology/Oncology 12/26/22 Senior Audit Manager Relationship Specialty Start Date End Date Yoan Sneed MD PCP - General Family Medicine 07/30/19 Jian Rodriguez MD Physician Urology 10/28/19 Casey Castaneda MD [address] [place] [address] Cardiology 09/12/22 Caesar Vazquez MD [address] [place] [address] Physician Hematology/Oncology 12/26/22 Margot So, RN [address] [place] [address] Specialty Journeyman Meat Cutter Hematology/Oncology 12/26/22 Wayne Chavez, CONCRETE PIPE MACHINE OPERATOR.WORK MEASUREMENT ENGINEER [address] [place] [address] Nurse Practitioner Hematology/Oncology 12/26/22 Senior Audit Manager Relationship Specialty Start Date End Date Yoan Sneed MD PCP - General Family Medicine 07/30/19 Jian Rodriguez MD Physician Urology 10/28/19 Casey Castaneda MD [address] [facility] [address] [place] [address] Cardiology 09/12/22 Caesar Vazquez MD [address] [place] [address] Physician Hematology/Oncology 12/26/22 Margot So, SUNIL [address] [place] [address] Specialty Journeyman Meat Cutter Hematology/Oncology 12/26/22 Wayne Chavez, CONCRETE PIPE MACHINE OPERATOR.WORK MEASUREMENT ENGINEER [address] [place] [address] Nurse Practitioner Hematology/Oncology 12/26/22 Senior Audit Manager Relationship Specialty Start Date End Date Yoan Sneed MD PCP - General Family Medicine 07/30/19 Jian Rodriguez MD Physician Urology 10/28/19 Casey Castaneda MD [address] [facility] [address] [place] [address] Cardiology 09/12/22 Caesar Vazquez MD [address] [place] [id number] Physician Hematology/Oncology 12/26/22 Margot So, SUNIL [address] [place] [address] Specialty Journeyman Meat Cutter Hematology/Oncology 12/26/22 Wayne Chavez APRN.WORK MEASUREMENT ENGINEER [address] [place] [address] Nurse Practitioner Hematology/Oncology 12/26/22 Senior Audit Manager Relationship Specialty Start Date End Date Yoan Sneed MD PCP - General Family Medicine 07/30/19 Jian Rodriguez MD Physician Urology 10/28/19 Casey Castaneda MD [address] [place] [address] Cardiology 09/12/22 Caesar Vazquez MD [address] [place] [address] Physician Hematology/Oncology 12/26/22 Margot So, RN [address] [place] [address] Specialty Journeyman Meat Cutter Hematology/Oncology 12/26/22 Wayne Chavez, CONCRETE PIPE MACHINE OPERATOR.WORK MEASUREMENT ENGINEER [address] [place] [address] Nurse Practitioner Hematology/Oncology 12/26/22 Senior Audit Manager Relationship Specialty Start Date End Date Yoan Sneed MD PCP - General Family Medicine 07/30/19 Jian Rodriguez MD Physician Urology 10/28/19 Csaey Castaneda MD [address] [facility] [address] [place] [address] Cardiology 09/12/22 Caesar Vazquez MD [address] [place] [address] Physician Hematology/Oncology 12/26/22 Margot So, SUNIL [address] [place] [address] Specialty Journeyman Meat Cutter Hematology/Oncology 12/26/22 Wayne Chavez, CONCRETE PIPE MACHINE OPERATOR.WORK MEASUREMENT ENGINEER [address] [place] [address] Nurse Practitioner Hematology/Oncology 12/26/22 Senior Audit Manager Relationship Specialty Start Date End Date Yoan Sneed MD PCP - General Family Medicine 07/30/19 Jian Rodriguez MD Physician Urology 10/28/19 Casey Castaneda MD [address] [place] [address] Cardiology 09/12/22 Caesar Vazquez MD [address] [place] [address] Physician Hematology/Oncology 12/26/22 Margot So, SUNIL [address] [place] [address] Specialty Journeyman Meat Cutter Hematology/Oncology 12/26/22 Wayne Chavez APRN.WORK MEASUREMENT ENGINEER [address] [place] [address] Nurse Practitioner Hematology/Oncology 12/26/22 Inactive [...] BE BASED ON THE PRIMARY CLINICAL RECORDS. [facility] 39 Females [facility]. provides no warranty or guarantee of the accuracy or completeness of information in this document.
[2024-01-23 08:50] LABS: Anion Gap 9.3; BUN Creatinine Ratio 19.3; Carbon Dioxide 31.2 mmol/L (21.0-32.0); Chloride 110 mmol/L (98-107); Estimated GFR (African America 54 (>=60); Estimated GFR (Non-African Ame 45 (>=60); Glucose 96 mg/dL (74-106); Potassium 3.5 mmol/L (3.5-5.1); Sodium 147 mmol/L (136-145)
== END 2024-01-23 07:03 | disposition home or self-care (01) ==
LOC: LAB 07:03
PROVIDERS: PCP Family Medicine; Visit Provider Nurse Practitioner Family
DX: I50.43 Acute on chronic combined systolic (congestive) and diastolic (congestive) heart failure (principal)
CPT/HCPCS: 36415; 80048; 83880

== ENCOUNTER 2024-02-05 08:10 | Emergency (ER) | payer MEDICARE, SELFPAY ==
[2024-02-05] VITALS (13 sets, daily range): BP systolic 108–142; BP diastolic 45–76; PULSE 0–76; TEMP 37; O2SAT 83–98; BMI 25.7
--- NOTE | 2024-02-05 08:24 | XR_ITS ---
The [address] [address] Patient Name: YONG AUSTIN MRN: [id number] date: 1940 Sex: M Assigned Patient Location: ER Current Patient Location: ED.MAIN Accession/Order Number: [id number] Exam Date: 02/05/2024 08:37 Report Date: 02/05/2024 09:06 At the request of: SHARMILA BAER Procedure: XR chest 1V EXAMINATION: XR chest 1V HISTORY: shortness of breath ; malfunctioning pacemaker COMPARISON: XR chest 03/10/2023 FINDINGS: LUNGS: Mild, faint opacities over lateral right lung base. VASCULATURE: No increased pulmonary vasculature. PLEURA: No pneumothorax, effusion, or pleural thickening. CARDIAC: No cardiomegaly or cardiac silhouette abnormality. Cardiac pacer. Defibrillator pads overlie the chest. MEDIASTINUM: No visible mass or adenopathy. BONES: No fracture or visible bone lesion. OTHER: Negative. XR/XR chest 1V IMPRESSION: 1. Trace amount of right basilar atelectasis or possibly infiltrates. 2. Cardiac pacer with intact leads which as been placed since prior study. Electronically authenticated by: ALTHEA SINGH Date: 02/05/2024 09:06
--- NOTE | 2024-02-05 08:24 | ECG_ITS ---
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
[2024-02-05 08:44] LABS: Basophils Absolute Auto 0.1 10^3/uL (0.0-0.1); Basophils Percent Auto 0.8 % (0.2-2.0); Eosinophils Absolute Auto 0.1 10^3/uL (0.0-0.7); Eosinophils Percent Auto 1.1 % (0.9-7.0); Hematocrit 35.5 % (42.0-54.0); Hemoglobin 11.3 g/dL (14.0-18.0); Immature Granulocytes Abs Auto 0.02 10^3/uL (0.00-0.03); Immature Granulocytes Pct Auto 0.3 % (0.0-0.5); Lymphocytes Absolute Auto 0.5 10^3/uL (1.2-3.8); Lymphocytes Percent Auto 8.7 % (20.5-60.0); Mean Corpuscular HGB Conc 31.8 g/dL (29.9-35.2); Mean Corpuscular Volume 88.1 fL (80.0-94.0); Mean Platelet Volume 9.9 fL (9.5-13.5); Monocytes Absolute Auto 0.4 10^3/uL (0.3-0.8); Monocytes Percent Auto 6.6 % (1.7-12.0); Neutrophils Absolute Auto 5.1 10^3/uL (1.4-6.5); Neutrophils Percent Auto 82.5 % (43.0-75.0); Platelet Count 246 10^3/uL (150-450); Red Blood Count 4.03 10^6/uL (4.70-6.10); Red Cell Distribution Width 16.2 % (11.0-15.0); White Blood Count 6.2 10^3/uL (4.0-11.0)
--- NOTE | 2024-02-05 08:44 | ED.SOB1 ---
HPI - SOB/Dyspnea General Chief Complaint: Shortness of Breath/Dyspnea Stated Complaint: SHORTNESS OF BREATH Time Seen by Provider: 02/05/24 08:20 Source: patient Mode of arrival: walk-in Limitations: no limitations History of Present Illness HPI Narrative: Patient presents with shortness of breath that he said has been intermittent for the last couple of weeks but got worse over the last 2 or 3 days. He denied any associated chest pain. No dizziness or syncope. He told me that he had his pacemaker interrogated a couple of weeks ago and was told everything was okay . He sees Dr. Castaneda with the [facility] cardiology group. He denied any recent change in medications. He did not have any of his pacemaker information with him. We called the [facility] cardiology office and I was able to get additional information about his pacemaker [employer], serial #[id number]. Model number [id number]. Implanted March 18, 2023. Related Data Home Medications ?Medication ?Instructions ?Recorded ?Confirmed amlodipine 10 mg tablet 10 mg PO DAILY 11/05/23 11/18/23 aspirin 81 mg tablet,delayed 81 mg PO DAILY 11/05/23 11/18/23 release (Adult Aspirin Regimen) atorvastatin 10 mg tablet 10 mg PO DAILY 11/05/23 11/18/23 ferrous sulfate 325 mg (65 mg 325 mg PO DAILY 11/05/23 11/18/23 iron) tablet furosemide 20 mg tablet (Lasix) 20 mg PO DAILY PRN edema 11/05/23 11/18/23 isosorbide dinitrate 20 mg tablet 20 mg PO TID 11/05/23 11/18/23 levothyroxine 25 mcg tablet 25 mcg PO QDAY 11/05/23 11/18/23 losartan 50 mg tablet 50 mg PO BID 11/05/23 11/18/23 metoprolol succinate 25 mg 25 mg PO DAILY 11/05/23 11/18/23 tablet,extended release 24 hr pantoprazole 40 mg tablet,delayed 40 mg PO QPM 11/05/23 11/18/23 release potassium chloride 10 mEq 10 meq PO BID 11/05/23 11/18/23 tablet,extended release tamsulosin 0.4 mg capsule 0.4 mg PO Q24H 11/05/23 11/18/23 ondansetron 4 mg disintegrating 4 mg PO Q4H PRN NAUSEA/VOMITING 11/18/23 11/18/23 tablet Allergies Allergy/AdvReac Type Severity Reaction Status Date / Time adhesive tape AdvReac Intermediate Verified 11/05/23 10:36 [facility] Medical History (Updated 02/05/24 @ 08:49 by Demetri Quintana) Coronary artery disease ?I25.10 - Atherosclerotic heart disease of [place] coronary artery without angina pectoris (ICD-10) BPH (benign prostatic hyperplasia) ?N40.0 - Benign prostatic hyperplasia without lower urinary tract symptoms (ICD-10) GERD (gastroesophageal reflux disease) ?K21.9 - Gastro-esophageal reflux disease without esophagitis (ICD-10) Hypertension ?I10 - Essential (primary) hypertension (ICD-10) Intractable nausea and vomiting ?R11.2 - Nausea with vomiting, unspecified (ICD-10) Social History (Updated 11/18/23 @ 18:49 by Belia Eli LPN) Within the past year, how often did you have a drink containing alcohol: never Within the past year, how often did you have six or more drinks on one occasion: never Score interpretation: A score less than 4 is consistent with normal alcohol consumption. Smoking status: Former smoker Second hand tobacco smoke exposure: No Non-prescribed substance use: denies use Known occupational exposures/hazards: No Highest level of school completed/degree received: 11th grade In a typical week, how many times do you talk on the telephone with family, friends, or neighbors: 3 or more times per week How often do you attend druze or gnosticism services: never Do you belong to any clubs or organizations such as druze groups unions, fraternal or athletic groups, or school groups: no Little interest or pleasure in doing things: not at all Feeling down, depressed, or hopeless: not at all Feel stressed/tense/nervous/anxious/difficulty sleeping: not at all Due to disability, difficulty making decisions: No Do you think of yourself as: straight/heterosexual Gender Identity: male Exam Narrative Exam Narrative: Nurses notes and vital signs reviewed and patient is not hypoxic. afebrile General: Well-appearing and in no apparent distress. Skin: Warm, dry, no pallor noted. Eye: Pupils are equal, round and EOMI. No scleral icterus. Cardiovascular: Bradycardia with occasional premature beat. Respiratory: No accessory muscle use or respiratory distress. Lungs are clear to auscultation, no wheezing, rales or rhonchi Musculoskeletal: normal ROM, no calf or popliteal tenderness, no lower extremity edema/swelling GI: Abdomen is soft, non-distended. Normal bowel sounds. No tenderness to palpation. No rebound, guarding, or rigidity noted. Neurological: A&O x4. No cranial nerve dysfunction observed. No truncal ataxia. Moves all extremities. Sensation intact. Psychiatric: Cooperative and interactive. Normal mood and affect. Constitutional Vital Signs, click to edit/add: Last Vital Signs Temp 98.6 F 02/05/24 08:12 Pulse 76 02/05/24 09:02 Resp 19 02/05/24 09:02 BP 116/48 L 02/05/24 09:02 Pulse Ox 88 L 02/05/24 09:02 O2 Del Method Room Air 02/05/24 08:35 Course Vital Signs Vital signs: Vital Signs Temperature 98.6 F 02/05/24 08:12 Pulse Rate 31 L 02/05/24 08:12 Respiratory Rate 18 02/05/24 08:12 Blood Pressure 109/45 L 02/05/24 08:12 Pulse Oximetry 98 02/05/24 08:12 Oxygen Delivery Method Room Air 02/05/24 08:12 Temperature 98.6 F 02/05/24 08:12 Pulse Rate 76 02/05/24 09:02 Respiratory Rate 19 02/05/24 09:02 Blood Pressure 116/48 L 02/05/24 09:02 Pulse Oximetry 88 L 02/05/24 09:02 Oxygen Delivery Method Room Air 02/05/24 08:35 MDM - SOB/Dyspnea MDM Narrative Medical decision making narrative: On arrival, the patient's pulse is approximately 30 bpm. 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 There is attempted pacing without a corresponding QRS complex. There are occasional PVCs and breakthrough beats but they are of variable size and shape. Patient moved to room 6 and pacer pads applied. He is hemodynamically stable with BP 109/45but HR continues to be around 30bpm. While I was evaluating the patient, the patient's donation specialist called his cell phone, as the failure of the pacemaker apparently alerted the padded products finisher. I spoke with Dr. Reddy, at [facility], who asked the patient be emergently transferred to the Signal Apprentice at [facility]. Call was placed to local ambulance service for critical care transport. Dr Wallace (ED at [facility]) and I discussed the case and the patient will go to the ED on arrival and then to the cardiac cath technician when they have an open patient room. External pacing started and paced to 76bpm. [facility] ambulance arrived @ 0910 to transport the patient to [facility]. Lab Data Attestation: I reviewed the patient's lab results. Labs: Lab Results 02/05/24 Range/Units 08:20 WBC 6.2 (4.0-11.0) 10^3/uL RBC 4.03 L (4.70-6.10) 10^6/uL Hgb 11.3 L (14.0-18.0) g/dL Hct 35.5 L (42.0-54.0) % MCV 88.1 (80.0-94.0) fL MCH 28.0 (25.9-34.0) pg MCHC 31.8 (29.9-35.2) g/dL RDW 16.2 H (11.0-15.0) % Plt Count 246 (150-450) 10^3/uL MPV 9.9 (9.5-13.5) fL Neut % (Auto) 82.5 H (43.0-75.0) % Lymph % (Auto) 8.7 L (20.5-60.0) % Cache % (Auto) 6.6 (1.7-12.0) % Eos % (Auto) 1.1 (0.9-7.0) % Baso % (Auto) 0.8 (0.2-2.0) % Neut # (Auto) 5.1 (1.4-6.5) 10^3/uL Lymph # (Auto) 0.5 L (1.2-3.8) 10^3/uL Cache # (Auto) 0.4 (0.3-0.8) 10^3/uL Eos # (Auto) 0.1 (0.0-0.7) 10^3/uL Baso # (Auto) 0.1 (0.0-0.1) 10^3/uL Abs Immat Gran (auto) 0.02 (0.00-0.03) 10^3/uL Imm/Tot Granulo (auto) 0.3 (0.0-0.5) % PT 11.7 H (9.0-11.6) sec INR 1.11 APTT 30.7 (22.3-36.2) sec Imaging Data Chest x-ray: Attestation: I personally reviewed and interpreted this imaging study as follows: Radiologist's impression: ITS Impressions Chest X-Ray 02/05/24 08:24 IMPRESSION: 1. Trace amount of right basilar atelectasis or possibly infiltrates. 2. Cardiac pacer with intact leads which as been placed since prior study. Electronically authenticated by: ALTHEA SINGH Date: 02/05/2024 09:06 ECG Data Attestation: I personally reviewed and interpreted this ECG as follows: Interpretation: EKG interpretation: Emergency Department physician interpretation. Failed cardiac pacing with intermittent PVCs and variable QRS complexes. Rate is approximately 28 bpm. Critical Care Time Critical Care Time Critical Care Time: Yes Total Critical Care Time: 50 Attestation: Critical Care Time: 50 minutes, critical care time is separate from any procedures that are performed. The following was considered in the determination of critical care but not limited to the level medical decision-making, intensive cardiac and/or respiratory monitor, frequent vital sign monitoring, evaluation of laboratory studies, evaluation of a radiographic studies, oxygen monitoring and constant monitoring. Discharge Plan Discharge Chief Complaint: Shortness of Breath/Dyspnea Clinical Impression: AV heart block, Pacemaker failure Patient Disposition: [facility] Time of Disposition Decision: 08:49 Discharge Location: [facility] Prescriptions / Home Meds: No Action amlodipine 10 mg tablet 10 mg PO DAILY aspirin [Adult Aspirin Regimen] 81 mg tablet,delayed release (DR/EC) 81 mg PO DAILY atorvastatin 10 mg tablet 10 mg PO DAILY ferrous sulfate 325 mg (65 mg iron) tablet 325 mg PO DAILY furosemide [Lasix] 20 mg tablet 20 mg PO DAILY PRN (Reason: edema) isosorbide dinitrate 20 mg tablet 20 mg PO TID losartan 50 mg tablet 50 mg PO BID metoprolol succinate 25 mg tablet extended release 24 hr 25 mg PO DAILY pantoprazole 40 mg tablet,delayed release (DR/EC) 40 mg PO QPM potassium chloride 10 mEq tablet extended release 10 meq PO BID tamsulosin 0.4 mg capsule 0.4 mg PO Q24H levothyroxine 25 mcg tablet 25 mcg PO QDAY ondansetron 4 mg tablet,disintegrating 4 mg PO Q4H PRN (Reason: NAUSEA/VOMITING) Print Language: Polish Referrals: Sergio Anderson MD [Primary Care Provider] - 1 week
[2024-02-05 09:01] LABS: INR 1.11; Partial Thromboplastin Time 30.7 sec (22.3-36.2); Prothrombin Time 11.7 sec (9.0-11.6)
[2024-02-05 09:07] LABS: Alanine Aminotransferase 45 U/L (16-63); Albumin Level 2.5 g/dL (3.4-5.0); Alkaline Phosphatase 106 U/L (46-116); Anion Gap 12.9; Aspartate Amino Transferase 41 U/L (15-37); BUN Creatinine Ratio 16.2; Bilirubin Total 0.4 mg/dL (0.2-1.0); Calcium 8.3 mg/dL (8.5-10.1); Carbon Dioxide 29.5 mmol/L (21.0-32.0); Chloride 106 mmol/L (98-107); Estimated GFR (African America 37 (>=60); Estimated GFR (Non-African Ame 30 (>=60); Globulin 2.6 g/dL; Glucose 112 mg/dL (74-106); Potassium 3.4 mmol/L (3.5-5.1); Sodium 145 mmol/L (136-145); Total Protein 5.1 g/dL (6.4-8.2)
[2024-02-05 09:17] LABS: Troponin I High Sensitivity 118.5 pg/mL (4.0-76.1)
== END 2024-02-05 09:32 | disposition short-term general hospital (02) ==
PROVIDERS: Emergency Provider Emergency Medicine; PCP Family Medicine
DX: I44.30 Unspecified atrioventricular block (principal); T82.9XXA Unspecified complication of cardiac and vascular prosthetic device, implant and graft, initial encounter; I25.10 Atherosclerotic heart disease of native coronary artery without angina pectoris; N40.0 Benign prostatic hyperplasia without lower urinary tract symptoms; K21.9 Gastro-esophageal reflux disease without esophagitis; I10 Essential (primary) hypertension; Z79.82 Long term (current) use of aspirin; Z79.899 Other long term (current) drug therapy; Z79.890 Hormone replacement therapy; Z87.891 Personal history of nicotine dependence
CPT/HCPCS: 36415; 71045; 80053; 83880; 84484; 85025; 85610; 85730; 93005; 99285

== ENCOUNTER 2024-02-12 15:18 | Outpatient (OUT) | payer MEDICARE, SELFPAY ==
--- NOTE | 2024-02-12 15:29 | XR_ITS ---
The [address] [address] Patient Name: YONG AUSTIN MRN: [id number] date: 1940 Sex: M Assigned Patient Location: [facility] Current Patient Location: [facility] Accession/Order Number: [id number] Exam Date: 02/12/2024 15:50 Report Date: 02/12/2024 16:07 At the request of: NON-STAFF PHYSICIAN Procedure: XR chest 1V EXAMINATION: XR chest 1V HISTORY: pacemaker complications T82.9XXA, latrogenic pneumothorax COMPARISON: 02/05/2024 at 8:37 AM TECHNIQUE: Portable FINDINGS: LUNGS: No significant pulmonary parenchymal abnormalities. VASCULATURE: No increased pulmonary vasculature. PLEURA: No pneumothorax, effusion, or pleural thickening. CARDIAC: No cardiomegaly or cardiac silhouette abnormality. MEDIASTINUM: No visible mass or adenopathy. Left bipolar pacemaker BONES: No fracture or visible bone lesion. OTHER: Negative. XR/XR chest 1V IMPRESSION: Clear lungs, no pneumothorax Electronically authenticated by: HAZEL RAMIREZ Date: 02/12/2024 16:07
== END 2024-02-12 15:19 | disposition home or self-care (01) ==
LOC: RAD 15:23
PROVIDERS: PCP Family Medicine
DX: T82.9XXA Unspecified complication of cardiac and vascular prosthetic device, implant and graft, initial encounter (principal); J95.811 Postprocedural pneumothorax
CPT/HCPCS: 71045

== ENCOUNTER 2024-03-10 16:40 | Outpatient (REF) | payer MEDICARE, SELFPAY ==
[2024-03-11 15:53] LABS: C. Difficile PCR NEGATIVE (NEGATIVE)
== END 2024-03-10 16:41 | disposition home or self-care (01) ==
LOC: LAB 16:40
PROVIDERS: PCP Family Medicine; Visit Provider Family Medicine
DX: R19.7 Diarrhea, unspecified (principal)
CPT/HCPCS: 87045; 87046; 87427; 87493

== ENCOUNTER 2025-07-06 08:18 | Outpatient (OUT) | payer MEDICARE, SELFPAY ==
--- NOTE | 2025-07-06 08:00 | CA_ITS ---
Patient Name: YONG AUSTIN MR#: [id number] : 1940 Exam Date: 07/06/2025 Ordering Doctor: DR CASEY CASTANEDA M.D. ECHOCARDIOGRAM REPORT PROCEDURE: CA ECHO DOPPLER COMPLETE INDICATIONS: Heart failure, hypertension, pacemaker COMPARISON: None. DESCRIPTION: COMPLETE ECHOCARDIOGRAM Real-time transthoracic echocardiography with 2D, M-mode, spectral and color flow Doppler performed. QUALITY: Technical quality was good. LEFT VENTRICLE: Normal chamber size. Severe concentric left ventricular hypertrophy. The septum is abnormal in motion likely due to pacemaker. There is diffuse global hypokinesis. Systolic function is moderately to severely reduced. LV EF: Moderately to severely reduced left ventricular ejection fraction, (30%). DIASTOLIC: Grade II diastolic dysfunction. ATRIAL SEPTUM: Visually appears intact. LEFT ATRIUM: Moderate dilatation. RIGHT ATRIUM: Mild dilatation. RIGHT VENTRICLE: Normal chamber size. Normal systolic function. Pacer wire present. TRICUSPID VALVE: Normal mobility and thickness. No stenosis with mild regurgitation. Doppler studies reveal mildly (35-45) elevated right sided pressures. RVSP 35 mmHg MITRAL VALVE: Mildly thickened with normal mobility. No mitral valve stenosis. There is no mitral annular calcification. Moderate mitral regurgitation. AORTIC VALVE: Normal trileaflet appearance. Thickened aortic valve. Normal leaflet mobility. No evidence of aortic valve stenosis. Trivial aortic regurgitation. AORTIC ROOT: Normal diameter and appearance, measuring 3.6 cm. Ascending aorta is normal in size, measuring 2.5 cm. PULMONIC VALVE: Normal thickness and mobility. No stenosis. No regurgitation. PERICARDIUM: No evidence of pericardial effusion. IVC: IVC is normal in size, does not collapse. PLEURA: CONCLUSION: 1. Severe concentric left ventricular hypertrophy with moderately to severely reduced systolic function. Estimated LVEF is 30%. 2. Normal right ventricular size and systolic function. 3. Moderate mitral regurgitation. 4. Mild to moderate biatrial dilatation. 5. Mild tricuspid regurgitation. 6. Mildly elevated right-sided pressures. Adult Echocardiography Procedure Report Left Ventricle LVEDD (3.7 - 5.6 cm): 4.91 cm LVESD (2.2 - 4.0 cm): 4.63 cm LVIVS thickness (0.6 - 1.2 cm): 1.57 cm LVPW thickness (0.5 - 1.0 cm): 1.69 cm e': 0.04 m/s E - e': 17.33 LVOT Max Gradient: 1.63 mm[Hg] LVOT Area (cm2): 0.64 m/s Peak Velocity (LVOT): 0.64 m/s Mean Velocity (LVOT): 0.47 m/s LVOT Diameter 2.38 cm Left Atrium LA Volume Index (2D A2C): 58.85 ml/m2 Left Atrium Systolic Dimension: 5.43 cm Mitral Valve MV E to A Ratio: 1.39 Mitral Valve A-Wave Peak Velocity: 0.47 m/s Mitral Valve E-Wave Peak Velocity: 0.65 m/s Right Ventricle Aorta AO Root Diam: 3.59 cm Ascending Ao Diam: 2.51 cm Aortic Valve AoV Area (Peak Ken): 2.28 cm2, 2.28 cm2 AoV Area (VTI): 2.55 cm2, 2.55 cm2 Peak Velocity(Antegrade Flow): 1.24 m/s Peak Gradient(Antegrade Flow): 6.15 mm[Hg] Mean Velocity(Antegrade Flow): 0.78 m/s Mean Gradient(Antegrade Flow): 2.98 mm[Hg] Velocity Time Integral: 25.81 cm Tricuspid Valve Peak Velocity (Regurgitant Flow): 2.52 m/s, 2.58 m/s Pulmonic Valve Peak Velocity: 1.20 m/s Peak Gradient: 5.76 mm[Hg] Right Atrium Right Atrium Systolic Pressure: 44.72 ml, 44.72 ml Dictated by: Casey Castaneda M.D. on 07/06/2025 at 14:18 Approved by: Casey Castaneda M.D. on 07/06/2025 at 14:27
--- OUTSIDE RECORDS SUMMARY | 2025-07-06 08:24 | XMS_ITS | CCD ---
Author Organization [facility] Care Team Providers Care Rubber Goods Repairer Name Role Phone PHYSICIAN, DEFAULT Unavailable Unavailable PHYSICIAN, DEFAULT Unavailable Unavailable PHYSICIAN, DEFAULT Unavailable Unavailable PHYSICIAN, DEFAULT Unavailable Unavailable Yoan Sneed MD Primary Care Provider [phone] Jian Rodriguez MD Unavailable Unavailable Mike BARBER, Lauren Barros Unavailable Soren Perea MD Unavailable Corazon Maxwell PA-C Unavailable [phone] Augusto Sauceda Unavailable Shawn Nelson Unavailable Yoan Sneed MD Primary Care Provider Jian Rodriguez MD Unavailable Unavailable Brit FOUNTAIN, Soren Unavailable [phone] Casey Castaneda MD Unavailable Yoan Sneed Primary Care Physician Yoan Sneed MD Primary Care Provider Caesar Vazquez MD Unavailable [phone] Saray BARBER, Mahesh Unavailable Patricia Conteh APRN.CNP Unavailable PAY ., DR SEVILLA Consulting [...] Unavailable Jian RODRIGUEZ Attending Unavailable Saray RN, Mahesh Unavailable Yoan Sneed MD Primary Care Provider [phone] Unavailable Primary Care Provider Unavailabl e Might Marilu CULVER Primary Care Provider [phone] Yoan Sneed MD Primary Care Provider [phone] Might SUPERINTENDENT MAINTENANCE - OUTSIDE MACHINIST, Marilu eNlson Primary Care Provider MIGHT, MARILU W Primary Care Unavailable LENI SANTIAGO Attending Unavailable LAWRENCE ADAM Attending Unavailable MIGHT, MARILU W Referring Unavailable MIGHT, MARILU W Primary Care Unavailable ADRIANNE AMES Referring Unavailable MIGHT, MARILU W Primary Care Unavailable JIMBO BAUTISTA Referring Unavailable MIGHT, MARILU W Primary Care Unavailable AMBER ELENA Attending Unavailable MIGHT, MARILU W Primary Care Unavailable ABHYANKAR, CAESAR Referring Unavailable MIGHT, MARILU W Primary Care Unavailable ABHYANKAR, CAESAR Referring Unavailable MIGHT, MARILU W Primary Care Unavailable YOAN SNEED Primary Care Unavailable ABHYANKAR, CAESAR Attending Unavailable ABHYANKAR, CAESAR Referring Unavailable YOAN SNEED Primary Care Unavailable ABHYANKAR, CAESAR Referring Unavailable ABHYANKAR, CAESAR Attending Unavailable MIGHT, MARILU W Primary Care Unavailable MIGHT, MARILU W Primary Care Unavailable ABHYANKAR, CAESAR Referring Unavailable ABHYANKAR, CAESAR Attending Unavailable ABHYANKAR, CAESAR Referring Unavailable MIGHT, MARILU W Primary Care Unavailable MIGHT, MARILU W Primary Care Unavailable Might SUPERINTENDENT MAINTENANCE-OUTSIDE MACHINIST, Marilu Nelson Primary Care Provider [phone] YOAN SNEED Primary Care Unavailable CARDIOLOGY, [facility] Consulting Unavailable KENNEDY, RD U Admitting Unavailable KENNEDY, RD U Attending Unavailable DIVISION OF INFECTIOUS DISEASE, [facility] Consulting Unavailable [place], [facility]ARD[facility]OR[facility] Unavailable ONLY), IP WOUND CARE SERVICES (INPATIENT Consult ing Unavailable JAYLA HERNANDEZ Attending Unavail able MIGHT, MARILU W Referring Unavailable MIGHT, MARILU W Primary Care Unavailable PENNIE AVALOS Attending Unavailable MIGHT, MARILU W Referring Unavailable MIGHT, MARILU W Primary Care Unavailable PENNIE AVALOS Attending Unavailable MIGHT, MARILU W Referring Unavailable MIGHT, MARILU W Primary Care Unavailable LILY, JIMBO Admitting Unavailable LILY, JIMBO Attending Unavailable DEA, ADEN Attending Unavailable LILY, JIMBO Referring Unavailable DEA, ADEN Referring Unavailable AIDE, JESSICA Attending Unavailable LILY, JIMBO Referring Unavailable LILY, JIMBO Attending Unavailable LILY, JIMBO Referring Unavailable MOUKARBEL, CASEY Attending Unavailable LILY, JIMBO Referring Unavailable TAPIA, JACOB Admitting Unavailable TAPAI, JACOB Attending Unavailable ENIX, PADMINI Referring Unavailable RAVIADELINA Attending Unavailable LILY, JIMBO Referring Unavailable LILY, JIMBO Attending Unavailable AIDE, JESSICA Attending Unavailable LILY, JIMBO Attending Unavailable LILY, JIMBO Admitting Unavailable LILY, JIMBO Attending Unavailable Allergies Allergy Classification Reported Allergen(s) Allergy Type Date of Onset Reaction(s) Facility (20 sources) Adhesive Tape; Translations: [ADHESIVE TAPE (ROSINS)] Propensity to adverse reactions to substance 8 Other: See Comments [facility] (2 sources) Adhesive Tape; Translations: [Tape] Allergy to substance Blister of skin without infection (disorder) [facility] (17 sources) Desonide Drug Allergy 4 Unknown, Other (See Comments) [facility] Repository (1 source) No Known Medication Allergies; Translations: [No Known Medication Allergies] Propensity to adverse reactions (disorder) [facility] Repository (4 sources) Desonide; Translations: [DESONIDE] Drug Allergy 4 [facility] Repository (10 sources) Adhesive agent; Translations: [ADHESIVE] Propensity to adverse reactions to drug 8 Rash [facility] NEGATED: Highlighted row has been ruled out! (1 source) Drug allergy [facility] Medications Current Medications Medication Drug Class(es) Dates Sig (Normalized) Sig (Original) amLODIPine 10 mg oral tablet (20 sources) Dihydropyridine Calcium Channel Cayla Start: 04-23-2025 take 0.5 tablet by mouth in the morning amLODIPine (NORVASC) 10 mg tablet Take 0.5 tablets (5 mg total) by mouth in the morning. 04/23/2025 Active Start: 05-05-2018 End: 05-03-2022 take 1 tablet by mouth once daily at bedtime amLODIPine (NORVASC) 10 mg tablet Take 10 mg by mouth daily at bedtime. 0 05/05/2018 05/03/2022 Discontinued amLODIPine Besyl ate Active Comment on above: Take 10 mg by mouth daily at bedtime. Take 10 mg by mouth once daily. aspirin 81 mg chewable tablet (20 sources) Platelet Aggregation Inhibitor, Nonsteroidal Anti-inflammatory Drug Start: 03-22-2024 aspirin chewable tablet 324 mg aspirin 81 mg ch ewable tablet Chew 1 tablet (81 mg total) and swallow in the morning. Active take 1 tablet by mouth once bethel y aspirin, enteric coated (ASPIRIN, ENTERIC COATED) 81 mg EC tablet Take 81 mg by mouth once daily. Active Vj Aspirin Ac tive Comment on above: Take 81 mg by mouth once daily. atorvastatin 10 mg oral tablet (20 sources) HMG-CoA Reductase Inhibitor Start: 8 take 1 tablet by mouth once daily atorvastatin (LIPITOR) 10 mg tablet Indications: Other hyperlipidemia TAKE ONE TABLET BY MOUTH DAILY 90 tablet 1 03/05/2019 Active Start: 06-13-2018 take 1 tablet by jenn once daily atorvastatin (LIPITOR) 80 mg tablet Take 80 mg by mouth once daily. 06/13/2018 Active Lipitor Active Comment on above: Take 10 mg by mouth once daily. balsalazide disodium 750 mg oral capsule (20 sources) Aminosalicylate Start: 05-14-20 24 take 3 capsules by mouth three times daily balsalazide (COLAZAL) 750 MG capsule Indications: Ulcerative pancolitis (HCC) Take 3 capsules by mouth 3 times daily 90 capsule 05/14/2024 Active Start: 06-25-2017 take 1 capsule by mo [facility] in the morning, then take 1 capsule by mouth three times daily balsalazide (COLAZAL) 750 mg capsule Take 1 capsule (750 mg total) by mouth in the morning. Take one three times daily . 06/25/2017 Active Start: 06-25-2017 End: 12-24-2023 take 3 capsules by mouth once daily balsalazide (COLAZAL) 750 mg capsule Take 2,250 mg by mouth once daily. 06/25/2017 12/24/2023 Discontinued (Discontinued by Patient) Start: [...] Active take 3 capsules by m outh three times daily balsalazide (COLAZAL) 750 MG capsule Take 3 capsules by mouth 3 times daily 0 Active Comment on above: Take 1,500 mg by jenn th three times daily. Take 1,500 mg by jenn th once daily. Take 2,250 mg by jenn th once daily. carvedilol 3.125 mg oral tablet (8 sources) alpha-Adrenergic Cayla, beta-Adrenergic Cayla Start: 02-28-2022 End: 05-03-2022 carvedilol (COREG) 3.125 mg tablet Carvedilol Activ e Centrum (4 sources) Centrum Active Centrum Silver (1 source) Start: 1 Centrum Silver Oral, Daily, Refill(s) 0 Start Date: 08/16/21 Status: Ordered cephalexin 500 mg oral capsule (6 sources) Cephalosporin Antibacterial Start: 5 End: 5 take 1 capsule by mouth three times daily CEPHalexin (KEFLEX) 500 mg capsule Take 1 capsule (500 mg total) by mouth 3 (three) times a day for 12 days. 36 capsule 04/23/2025 05/05/2025 Active Start: 01-04-2025 End: 01-14-2025 take 1 capsule by mouth four times daily cephALEXin (KEFLEX) 500 MG capsule Indications: Abscess Take 1 capsule by mouth 4 times daily for 10 days 40 capsule 01/04/2025 01/14/2025 Active chondroitin sulfates 400 mg / glucosamine hydrochloride 500 mg oral tablet (20 sources) take 1 tablet by mouth in the morning glucosamine-chondroitin 500-400 mg tablet Take 1 tablet by mouth in the morning. Active take 1 tablet by mouth once bethel y Glucosamine-Chondroitin 500-400 mg tablet Take 1 tablet by mouth once daily. Active take 1 tablet by mouth once bethel y glucosamine-chondroitin 500-400 MG tablet Take 1 tablet by mouth daily Active Comment on above: Take 1 tablet by jenn once daily. clopidogrel 75 mg oral tablet (10 sources) P2Y12 Platelet Inhibitor Start: End: clopidogrel (PLAVIX) 75 MG tablet Take 1 tablet by mouth 04/21/2024 04/16/2025 Active cranberry fruit (CRANBERRY) 450 mg tab (6 sources) take 1 capsule by mouth once daily in the morning cranberry fruit (CRANBERRY) 450 mg tab Take 1 capsule by mouth every morning. Active take 1 capsule by mo uth once daily in the morning cranberry fruit (CRANBERRY) 450 mg tab T teresa 1 capsule by mouth every morning. 0 Active Cranberry preparation (20 sources) Non-Standardized Food Allergenic [...] Take 500 mg by mouth twice daily. enteric contrast (will be provided with radiology test) (20 sources) Start: 10-23-2024 enteric contrast (will be provided with radiology test) Indications: Malignant 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) , Malignant neoplasm of urinary bladder, unspecified site (HCC) , CKD (chronic kidney disease), stage V (HCC) For CT CHESTABD/PEL W IVCON Routine order Administer, As Directed One Time Only, via Oral, Rectal, both Oral and Rectal, Enteric Tube, Stoma or Indwelling Catheter, Enteric Contrast as designated per enteric contrast guidelines 1 Each 10/23/2024 Active Start: 08-21-2024 End: 10-23-2024 enteric contrast (will be pr ovided with radiology test) Indications: Malignant 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) For CT CHESTABD/PEL W IVCON Routine order Administer, As Directed One Time Only, via Oral, Rectal, both Oral and Rectal, Enteric Tube, Stoma or Indwelling Catheter, Enteric Contrast as designated per enteric contrast guidelines 1 Each 08/21/2024 10/23/2024 Discontinued (Course of therapy completed) Start: 08-21-[address] (will be provided with radiology test) Indications: Malignant 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) For CT CHESTABD/PEL W IVCON Routine order Administer, As Directed One Time Only, via Oral, Rectal, both Oral and Rectal, Enteric Tube, Stoma or Indwelling Catheter, Enteric Contrast as designated per enteric contrast guidelines 1 Each 08/21/2024 Active Start: 05-18-2024 End: 10-23-2024 enteric contrast (will be pr ovided with radiology test) Indications: Malignant 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) , CKD (chronic kidney disease), stage V (HCC) , Malignant neoplasm of urinary bladder, unspecified site (HCC) , Disorder of thyroid , Abnormal blood chemistry For CT CHESTABD/PEL W IVCON Routine order Administer, As Directed One Time Only, via Oral, Rectal, both Oral and Rectal, Enteric Tube, Stoma or Indwelling Catheter, Enteric Contrast as designated per enteric contrast guidelines 1 Each 05/18/2024 10/23/2024 Discontinued (Course of therapy completed) Start: 05-18-[address] (will be provided with radiology test) Indications: Malignant 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) , CKD (chronic kidney disease), stage V (HCC) , Malignant neoplasm of urinary bladder, unspecified site (HCC) , Disorder of thyroid , Abnormal blood chemistry For CT CHESTABD/PEL W IVCON Routine order Administer, As Directed One Time Only, via Oral, Rectal, both Oral and Rectal, Enteric Tube, Stoma or Indwelling Catheter, Enteric Contrast as designated per enteric contrast guidelines 1 Each 05/18/2024 Active Start: 05-18-[address] (will be provided with radiology test) Indications: Malignant 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) , CKD (chronic kidney disease), stage V (HCC) , Malignant neoplasm of urinary bladder, unspecified site (HCC) , Disorder of thyroid , Abnormal blood chemistry For CT CHESTABD/PEL W IVCON Routine order Administer, As Directed One Time Only, via Oral, Rectal, both Oral and Rectal, Enteric Tube, Stoma or Indwelling Catheter, Enteric Contrast as designated per enteric contrast guidelines 1 Each 0 05/18/2024 Active Start: 12-20-2023 End: 12-21-2023 enteric contrast (will be pr ovided with [...] designated per enteric contrast guidelines 1 Each 05/16/2023 06/28/2023 Discontinued (Discontinued by Patient) Start: 05-16-2023 End: 06-28-2023 enteric contrast (will [...] guidelines ferrous sulfate 325 mg oral tablet (20 sources) ferrous sulfate 325 (65 FE) mg tablet Take 1 tablet (325 mg total) by mouth. Take one three times weekly Active take 1 tablet by mouth three reynaldo es weekly ferrous sulfate (IRON 325) 325 (65 Fe) MG tablet Take 1 tablet by mouth three times a week Active Comment on above: Take 325 mg by mouth . Fish Oils (3 sources) Fish Oil Active folic acid/multivit-min/lute in (CENTRUM SILVER ORAL) (20 sources) take 1 tablet by mouth once daily folic acid/multivit-min/diane tein (CENTRUM SILVER ORAL) Take 1 tablet by mouth once daily. Active take 1 tablet by mouth once bethel y folic acid/multivit-min/lutein (CENTRUM SILVER ORAL) Take 1 tablet by mouth once daily. 0 Active Comment on above: Take 1 tablet by jenn th once daily. furosemide 20 mg oral tablet (20 sources) Loop Diuretic Start: 08-16-2021 take 1 tablet by mouth once daily furosemide 20 mg Tab 20 mg = 1 tab(s), Oral, Daily Start Date: 08/16/21 Status: Ordered take 2 tablets by mouth once litzy ly furosemide (LASIX) 20 mg tablet Take 2 tablets (40 mg total) by mouth daily. Active furosemide (LASI X) 40 mg tablet Take 40 mg by mouth as needed. Active Furosemide Activ e Comment on above: Take 20 mg by mouth once daily. Take 20 mg by mouth as needed. glucosamine hydrochloride 1500 mg oral tablet (5 sources) Start: 07-13-2019 take 1500 mg by mouth once daily glucosamine 1,500 mg, Oral, Daily, Refills(s) 0 Start Date: 07/13/19 Status: Ordered Glucosamine Acti ve Xcpjcrbyziz-Imydutwql-Chb C- Mn (GLUCOSAMINE 1500 COMPLEX) CAPS (5 sources) Glucosamine-Kenneth droit-Vit C-Mn (GLUCOSAMINE 1500 COMPLEX) CAPS Take by mouth Active Glucosamine-Kenneth droit-Vit C-Mn (GLUCOSAMINE 1500 COMPLEX) CAPS Take by mouth 0 Active 12 hr guaiFENesin 600 mg extended release oral tablet (5 sources) Start: 04-23-2025 End: 05-07-2025 take 1 tablet by mouth once guaiFENesin (MUCINEX) 600 mg tablet extended release 12hr Take 1 tablet (600 mg total) by mouth every 12 (twelve) hours for 14 days. 28 tablet 04/23/2025 05/07/2025 Active hydrALAZINE hydrochloride 25 mg oral tablet (20 sources) Arteriolar Vasodilator Start: 02-21-2022 take 1 tablet by mouth three times daily hydrALAZINE (APRESOLINE) 25 mg tablet Take 25 mg by mouth three times a day. 02/21/2022 Active Start: 02-21-2022 hydrALAZINE (A PRESOLINE) 50 mg tablet Take 25 mg by mouth three times a day. 0 02/21/2022 Active Start: 02-21-2022 take 1 tablet by jenn three times daily hydrALAZINE (APRESOLINE) 50 mg tablet Take 50 mg by mouth three times daily. 0 02/21/2022 Active Start: 08-16-2021 take 1 tablet by jenn four times daily hydrALAZINE 10 mg Tab [...] mg by mouth three times a day. hyoscyamine sulfate 0.125 mg oral tablet (11 sources) hyoscyamine (LEV SIN) 0.125 mg tablet Take 125 mcg by mouth. Active take 1 tablet by jenn th once daily as needed hyoscyamine (ANASPAZ;LEVSIN) 125 MCG tab let Take 1 tablet by mouth nightly as needed for Cramping Active iopamidol (ISOVUE-370) 76 % injection 75 mL (1 source) Start: 03-22-2024 iopamidol (ISOVUE-370) 76 % injection 75 mL Iron (1 source) take 1 tablet by mouth three times weekly Iron (Ferrous Sulfate) 325 (65 Fe) MG 1 tablet Orally Three times a Week Active 24 hr isosorbide mononitrate 30 mg extended release oral tablet (20 sources) Nitrate Vasodilator Start: 04-09-2024 End: 04-04-2025 isosorbide mononitrate (IMDUR) 30 MG extended release tablet Take 1 tablet by mouth 04/09/2024 04/04/2025 Active Comment on above: Take 30 mg by mouth once daily. isosorbide dinitrate 20 mg oral tablet (20 sources) Nitrate Vasodilator Start: 08-15-2023 take 1 tablet by mouth three times daily isosorbide dinitrate (ISORDIL) 20 mg tablet Take 20 mg by mouth three times a day. 08/15/2023 Active Start: 08-16-2021 take 1 tablet [...] provided with radiology test) (20 sources) Start: 10-23-2024 iv contrast (will be provided with radiology test) Indications: Malignant 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) , Malignant neoplasm of urinary bladder, unspecified site (HCC) , CKD (chronic kidney disease), stage V (HCC) CT Chest ABD/PEL-Inject, intravenously, once for 1 [...] CT contrast administration guidelines link. 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 1 Each 08/21/2024 Active Start: 05-18-2024 End: 10-23-2024 iv contrast (will be provide d with radiology test) Indications: Malignant 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) , CKD (chronic kidney disease), stage V (HCC) , Malignant neoplasm of urinary bladder, unspecified site (HCC) , Disorder of thyroid , Abnormal blood chemistry CT Chest ABD/PEL-Inject, intravenously, once for 1 [...] CT contrast administration guidelines link. 1 Each 05/18/2024 10/23/2024 Discontinued (Course of therapy completed) Start: 05-18-2024 iv contrast (w ill be provided with radiology test) Indications: Malignant 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) , CKD (chronic kidney disease), stage V (HCC) , Malignant neoplasm of urinary bladder, unspecified site (HCC) , Disorder of thyroid , Abnormal blood chemistry CT Chest ABD/PEL-Inject, intravenously, once for 1 [...] CT contrast administration guidelines link. 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 1 Each 0 05/18/2024 Active Start: 12-20-2023 End: 12-21-2023 iv contrast (will be provide d with [...] CT contrast administration guidelines link. 1 Each 05/16/2023 12/24/2023 Discontinued (Discontinued by Patient) Start: 05-16-2023 End: 12-24-2023 iv contrast (will [...] in the CT contrast administration guidelines link. lactobacillus acidophilus [id number] unt oral capsule (6 sources) lactobacillus acidophilus 100 mg (1 billion cell) cap(s) Take by mouth. Active levothyroxine sodium 0.025 mg oral tablet (20 sources) l-Thyroxine Start: 023 take 1 tablet by mouth once daily in the morning levothyroxine (SYNTHROID) 25 mcg tablet 1 tablet in the morning on an empty stomach Orally Once a day for 30 days 06/12/2023 Active Comment on above: 1 tablet in the morn ing on an empty stomach Orally Once a day for 30 days liothyronine sodium 0.005 mg oral tablet (1 source) l-Triiodothyronine take 1 tablet by mouth at bedtime liothyronine (CYTOMEL) 5 MCG tablet Take 1 tablet by mouth in the morning and at bedtime 0 Active losartan potassium 50 mg oral tablet (20 sources) Angiotensin 2 Receptor Cayla Start: 019 losartan (COZAAR) 50 mg tablet Take 50 mg by mouth. 0 07/13/2019 Active Start: 05-15-2018 End: 11-12-2022 take 1 tablet by mouth twice daily losartan (COZAAR) 50 mg tablet Take 50 mg by mouth two times a day. 07/13/2019 Active Losartan Potassi um Active Comment on above: Take 50 mg by mouth twice daily. Take 50 mg by mouth. Take 50 mg by mouth two times a day. Magnesium (5 sources) Magnesium 400 MG CAPS Take by mouth Active Magnesium 400 MG CAPS Take by mouth 0 Active magnesium oxide 400 mg oral tablet (13 sources) Start: 2025 take 1 tablet by mouth in the morning magnesium oxide (MAGOX) 400 mg tablet Take 1 tablet (400 mg total) by mouth in the morning. 30 tablet 2 2025 Active magnesium oxide 400 mg magnesium tab Take 400 mg by mouth. Active 24 hr metoprolol succinate 25 mg extended release oral tablet (20 sources) beta-Adrenergic Cayla Start: 08-16-2021 End: 05-03-2022 take 1 mg by mouth once daily metoprolol 25 mg ER Tab mg tab(s), Oral, Daily Start Date: 08/16/21 Status: Ordered take 2 tablets by [facility] every twenty-four hours in the morning metoprolol succinate XL (TOPROL XL) 25 mg 24 hr tablet Take 2 tablets (50 mg total) by mouth in the morning. Active End: 12-31-2022 take 1 tablet by mouth twice daily metoprolol tartrate, short acting, (LOPRESSOR) 25 mg tablet Take 25 mg by mouth twice daily. 0 12/31/2022 Discontinued Comment on above: Take 25 mg by mouth once daily. Take 25 mg by mouth twice daily. Multiple Vitamins-Minerals (THERAPEUTIC MULTIVITAMIN-MINERALS) tablet (5 sources) take 1 tablet by mouth once daily Multiple Vitamins-Minerals (THERAPEUTIC MULTIVITAMIN-MINERALS ) tablet Take 1 tablet by mouth daily Active take 1 tablet by mouth once bethel y Multiple Vitamins-Minerals (THERAPEUTIC MULTIVITAMIN-MINERALS) tablet Take 1 tablet by mouth daily 0 Active ondansetron 4 mg disintegrating oral tablet (20 sources) Serotonin-3 Receptor Antagonist Start: 11-18-2023 ondansetron orally disintegrating (ZOFRAN ODT) 4 mg disintegrating tablet 11/18/2023 Active Start: 11-21-2021 End: 05-03-2022 take 1 tablet by mouth every eight hours as needed ondansetron (ZOFRAN) 8 mg tablet Take 1 tablet by mouth every 8 hours as needed for nausea/vomiting. 90 tablet 2 11/21/2021 05/03/2022 Discontinued Comment on above: Take 1 tablet by jenn every 8 hours as needed for nausea/vomiting. pantoprazole 40 mg delayed release oral tablet (20 sources) Proton Pump Inhibitor Start: 08-15-[address] (PROTONIX) 40 mg tablet 08/15/2023 Active 4 ml pembrolizumab 25 mg/ml injection (20 sources) Programmed Receptor-1 Blocking Antibody pembrolizumab (KEYTRUDA) 25 mg/mL injection Inject intravenously. Active pembrolizumab (K EYTRUDA) 100 MG/4ML SOLN Infuse intravenously Active Keytruda Active Comment on above: Inject intravenously . predniSONE 20 mg oral tablet (20 sources) Start: End: take 1 tablet by mouth once daily predniSONE (DELTASONE) 20 mg tablet Take 1 tablet by mouth once daily. Prednisone 20 mg for 5 days then 10 mg daily. 60 tablet 03/30/2024 Active Start: 08-29-2023 End: 09-28-2023 take 4 tablets by mouth once daily predniSONE (DELTASONE) 10 mg tablet Take 4 tablets by mouth once daily. 120 tablet 0 08/29/2023 09/28/2023 Active Start: 01-23-2023 End: 04-04-2023 take 1 tablet by mouth once daily predniSONE (DELTASONE) 50 mg Take 1 tablet by mouth once daily. 5 tablet 01/23/2023 04/04/2023 Discontinued (Discontinued by another Health Care Provider) Comment on above: Take 1 tablet by jenn once daily. Take 4 tablets by mo [facility] once daily. Take 1 tablet by jenn th once daily. Prednisone 20 mg for 5 days then 10 mg daily. prochlorperazine 10 mg oral tablet (12 sources) Phenothiazine Start: End: take 1 tablet by mouth every six hours as needed prochlorperazine (COMPAZINE) 10 mg tablet Take 1 tablet by mouth every 6 hours as needed. 100 tablet 2 11/21/2021 05/03/2022 Discontinued Comment on above: Take 1 tablet by jenn every 6 hours as needed. tamsulosin hydrochloride 0.4 mg oral capsule (20 sources) alpha-Adrenergic Cayla Start: 022 End: 023 take 1 capsule by mouth [...] minutes after the same meal each day. Completed/Discontinued Medications Medication Drug Class(es) Dates Sig [...] on above: Take 2 tablets by mo uth every 4 hours as needed for Pain. ciprofloxacin 250 mg oral tablet (1 source) Quinolone Antimicrobial Start: 3 take 1 tablet by mouth once daily Cipro 250 mg Tab 250 mg = 1 tab(s), Oral, Daily, Take 1 tablet the day before the procedure and 1 tablet after the procedure, # 2 tab(s), Refills(s) 0, Pharmacy: [facility] [id number], 167, cm, 12/05/22 9:25:00 EST, Height/Length Dosing, 84, kg, 02/22/23 9:25:00 ES... Start Date: 12/05/22 Status: Ordered docusate sodium 100 mg oral capsule (5 sources) Start: 3 End: 3 take 1 capsule by mouth twice daily docusate sodium (COLACE) 100 mg capsule Take 1 capsule by mouth twice daily for 14 days. Stop taking if you develop diarrhea or loose stools 28 capsule 0 11/12/2022 11/26/2022 Start: 05-23-2022 take 1 capsule by mo ut twice daily docusate sodium (COLACE) 100 mg capsule Take 1 capsule by mouth twice daily. 10 capsule 0 05/23/2022 Active Comment on above: Take 1 capsule by mo ut twice daily. Take 1 capsule by mo ut twice daily for 14 days. Stop taking if you develop diarrhea or loose stools empagliflozin 10 mg oral tablet (20 sources) Sodium-Glucose Cotransporter 2 Inhibitor End: 2023 take 1 tablet by mouth once daily empagliflozin (JARDIANCE) 10 MG tablet Take 1 tablet every day by oral route for 90 days. 09/10/2024 Discontinued (LIST CLEANUP) Comment on above: Take 10 mg by mouth daily with breakfast. enalapril maleate 5 mg oral tablet (9 sources) Angiotensin Converting Enzyme Inhibitor End: 2022 take 1 tablet by mouth once daily enalapril (VASOTEC) 5 mg tablet Take 5 mg by mouth once daily. 04/04/2023 Discontinued (Changing Therapy/Dosage Form) Comment on above: Take 5 mg by mouth o nce daily. Fish Oil-[place]-3 Fatty Acids (FISH OIL) 300-1,000 mg cap (13 sources) take 1 capsule by mouth once daily Fish Oil-[place]-3 Fatty Acids (FISH OIL) 300-1,000 mg cap Take 2 g by mouth once daily. 0 Active Comment on above: Take 2 g by mouth on ce daily. hydroCHLOROthiazide 25 mg / triamterene 37.5 mg oral tablet (1 source) Potassium-sparing Diuretic, Thiazide Diuretic Start: 2017 End: 2021 take 1 tablet by mouth once daily triamterene-hydrochlo rothiazide (MAXZIDE-25) 37.5-25 mg per tablet Take 1 tablet by mouth once daily. 0 05/14/2018 11/01/2021 Discontinued Comment on above: Take 1 tablet by jenn once daily. Methylcellulose (1 source) End: 2021 methylcellulose (CITRUCEL ORAL) Take 1 Tablespoonful by mouth once daily. 0 11/21/2021 Discontinued Comment on above: Take 1 Tablespoonful by mouth once daily. omega-3 fatty acids/fish oil (FISH OIL-OMEGA-3 FATTY ACIDS) 300-1,000 mg cap (4 sources) End: 2022 take 1 capsule by mouth once daily [...] capsule by mouth twice daily. 60 capsule 11/21/2021 12/24/2023 Discontinued (Discontinued by Patient) take 1 capsule by [facility] once daily omeprazole (PRILOSEC) 20 mg capsule Take 1 capsule by mouth once daily. Active Comment on above: Take 1 capsule by [facility] twice daily. Take 20 mg by mouth twice daily. oxybutynin chloride 5 mg oral tablet (3 sources) Cholinergic Muscarinic Antagonist Start: 05-23-20 take 1 tablet by mouth every eight hours as needed oxybutynin (DITROPAN) 5 mg tablet Take 1 tablet by mouth three times daily as needed (bladder spasms). 12 tablet 0 05/23/2022 Active Comment on above: Take 1 tablet by jenn three times daily as needed (bladder spasms). oxyCODONE hydrochloride 5 mg oral tablet (7 sources) Opioid Agonist Start: 11-12-19 take 1 tablet by mouth every eight [...] every 8 hours as needed for pain. potassium chloride 10 meq extended release oral capsule (20 sources) Start: 02-28-2022 potassium chloride SR (MICRO-K) 10 mEq CR capsule take 1 tablet by mouth twice litzy ly potassium chloride (K-TAB) 10 mEq tablet Take 10 mEq by mouth twice daily. Active Potassium Chlori de Active Comment on above: Take 10 mEq by mouth twice daily. Problems Active Problems Problem Classification Problem Date [...] of bladder neoplasm 07-13-2019 Episodic Cardiac dysrhythmias (7 sources) Atrial flutter; Translations: [Unspecified atrial flutter] Onset: 4 Resolved: 4 04-23-2024 Chronic Chronic kidney disease (20 sources) Chronic kidney disease stage 3; Translations: [Stage 3 chronic kidney disease] Onset: 9 08-11-2019 Chronic Chronic kidney disease (2 sources) Chronic kidney disease; Translations: [Chronic kidney disease, stage 3b] Onset: 3 Chronic ulcer of skin (2 sources) Skin ulcer; Translations: [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 sites with fat layer exposed] Onset: 5 05-17-2025 Chronic Conduction disorders (12 sources) 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; Translations: [Other atrioventricular block] Onset: 3 04-22-2024 Chronic Congestive heart failure; nonhypertensive (9 sources) Acute systolic (congestive) heart failure; Translations: [Chronic systolic heart failure] Onset: 2 04-22-2024 Chronic Coronary atherosclerosis and other heart disease (2 sources) Atherosclerotic heart disease of [place] coronary artery without angina pectoris; Translations: [Atherosclerotic heart disease of [place] coronary artery without angina pectoris] Onset: 4 Chronic Diseases of mouth; excluding dental (1 source) Xerostomia; Translations: [Dry mouth, unspecified] 04-25-2023 Episodic Disorders of lipid metabolism (17 sources) Pure hypercholesterolemia, unspecified; Translations: [Hyperlipidemia, unspecified] Onset: 7 04-23-2024 Chronic Esophageal disorders (20 sources) Gastroesophageal reflux [...] sources) Malaise and fatigue; Translations: [Other malaise] 06-28-2023 Episodic Nutritional deficiencies (1 source) Vitamin D deficiency, unspecified; Translations: [VITAMIN D DEFICIENCY UNSPECIFIED] Onset: 2 Chronic Open wounds of head; neck; and trunk (12 sources) Open wound of left chest wall; Translations: [Unspecified open wound of left front wall of thorax without penetration into thoracic cavity, initial encounter] Onset: 5 05-03-2025 Episodic Osteoarthritis (1 source) Unspecified osteoarthritis, unspecified site; Translations: [UNSPECIFIED OSTEOARTHRITIS UNS SITE] Onset: 3 Chronic Other aftercare (1 source) Other terminal system operator (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; Translations: [OTH HONING MACHINE SET UP OPERATOR CURRENT DRUG THERAPY] Onset: 3 Episodic Other aftercare (1 source) meterman (current) use of aspirin; Translations: [CORRECTION CURRENT USE OF ASPIRIN] Onset: 3 Episodic Other diseases of kidney and ureters (1 source) Urinary tract obstruction; Translations: [Other obstructive and reflux uropathy] Onset: 3 Episodic Other gastrointestinal disorders (1 source) Diarrhea, unspecified Episodic Other injuries and conditions due to external causes (10 sources) Open wound; Translations: [Other injury of unspecified body region, initial encounter] Onset: 5 05-03-2025 Episodic Other injuries and conditions due to external causes (7 sources) Surgical wound finding; Translations: [Other injury of unspecified body region, initial encounter] Onset: 5 04-22-2025 Episodic Other injuries and conditions due to external causes (2 sources) Other injury of unspecified body region, initial encounter; Translations: [Other injury of unspecified body region, initial encounter] Onset: 5 Episodic Other lower respiratory disease (1 source) Shortness of breath; Translations: [SHORTNESS OF BREATH] Onset: 3 Episodic Other lower respiratory disease (1 source) Shortness of breath Onset: 5 Episodic Other nervous system disorders (4 sources) [...] Chronic Other nutritional; endocrine; and metabolic disorders (2 sources) Abnormal weight loss; Translations: [Abnormal weight loss] 12-20-2023 Episodic Other screening for suspected conditions (not mental disorders or infectious disease) (1 source) Imaging result abnormal; Translations: [Abnormal findings on diagnostic imaging of other specified body structures] 03-17-2024 Chronic Regional enteritis and ulcerative colitis (20 sources) [...] HISTORY OF NICOTINE DEPEND] Onset: 3 Episodic Skin and subcutaneous tissue infections (2 sources) Abscess; Translations: [Cutaneous abscess, unspecified] Onset: 5 01-04-2025 Episodic Thyroid disorders (6 sources) Congenital hypothyroidism; 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] Onset: 4 04-23-2024 Chronic Unclassified (1 source) Drug therapy finding 04-28-2019 Unclassified (1 source) CHRN KIDNEY DISEASE STG 3 UNSP; Translations: [CHRN KIDNEY DISEASE STG 3 UNSP] Onset: 2 Unclassified (3 sources) Pacemaker Problem; Translations: [Pacemaker Problem] Onset: 5 Unclassified (1 source) Juan Jose Cunha coming for leadless pacemaker by Dr Kahaly E.r coming by ground - stable Onset: 5 Unclassified (1 source) Wound Check Onset: 5 Urinary tract infections (1 source) Acute cystitis; [...] neoplasm of ureter] Onset: 12-10-2022 07-13-2019 Episodic Complication of device; implant or graft (18 sources) Disorder of cardiac pacemaker system; Translations: [Unspecified complication of cardiac and vascular prosthetic device, implant and graft, initial encounter] Onset: 02-05-2024 04-22-2024 Episodic Conditions associated with dizziness or vertigo (4 sources) Dizziness and giddiness; Translations: [DIZZINESS AND GIDDINESS] Onset: 12-08-2022 Episodic Deficiency and other anemia (1 source) Anemia, unspecified; Translations: [ANEMIA UNSPECIFIED] Onset: 09-30-2022 Episodic Diabetes mellitus without complication (1 source) Other abnormal glucose; Translations: [OTHER ABNORMAL GLUCOSE] Onset: 09-30-2022 Episodic Genitourinary symptoms and ill-defined conditions (20 sources) Tre hematuria; Translations: [Gross hematuria] Onset: 11-09-2022 11-14-2022 Episodic Mood disorders (7 sources) Mood disorders Onset: 09-03-2018 09-03-2018 Nonspecific chest pain (4 sources) Chest discomfort; Translations: [Other chest pain] Onset: 09-10-2024 09-10-2024 Episodic Other diseases of kidney and ureters (20 sources) Hydronephrosis; Translations: [Unspecified hydronephrosis] Onset: 09-30-2019 09-30-2019 Episodic Other lower respiratory disease (2 sources) Other forms of dyspnea; Translations: [Other forms of dyspnea] Onset: 09-29-2024 Episodic Other screening for suspected conditions (not mental disorders or infectious disease) (9 sources) Patient encounter status; Translations: [Encounter for screening for other disorder] Onset: 09-30-2022 Episodic Residual codes; unclassified (20 sources) Absent kidney; Translations: [Acquired absence of kidney] Onset: 07-18-2018 10-26-2021 Episodic Syncope (8 sources) Syncope and collapse; Translations: [Syncope and collapse] Onset: 01-11-2023 Episodic Thyroid disorders (6 sources) Disorder of thyroid gland; Translations: [Disorder of thyroid, unspecified] Onset: 06-29-2024 06-06-2023 Episodic Unclassified (4 sources) Onset: 04-22-2024 Resolved: 10-27-2024 04-22-2024 Results Test Name Value Interpretation Reference Range Facility No Panel Informationon 05-17 Applied in clinic to day MANUALLY TRANSCRIBED RESULTS [employer] 36on 05-14-2025 36 Verbal consent for treatment obtained on 05/14/25 at 12:25pm [facility] 36 Left voicemail with patient to get verbal consent for treatment [facility] 36 Finance Insurance Manager called alize t son as well to see if he could get back in touch with us or have his father give us a call back before his appointment time. [facility] 36 LVM another voicemai l request a verbal consent for treatment for the patient to be seen today at 3:20 [facility] 36 Called patient and l eft voicemail to get consent for treatment so telemed for 05/14/25 at 3:20 pm can be checked in. [facility] 37on 05-14-2025 37 Continue to monitor for signs and symptoms of infection including fever, chills, shortness of breath, chest pain, abdominal pain, nausea, vomiting and diarrhea. Call our office if you notice any of these or go to the ED if needing to [facility] Telemedicineon 05-14-2025 Telemedicine [id number] Juan Jose Austin 1940 M Date Provider Department Center 05/14/2025 Parker-ADELINA RODRIGUES [facility] INFEC [facility] Family History Problem Relation Age of Onset Heart failure Mother Lung cancer Father Family Status - Relation Status Age at Mother Father Level of Service:00132 [place] OFFICE/OUTPATIENT ESTABLISHED LOW MDM 20 MIN (GT) Reason for Visit and Comments: Follow-up [[id number]] Normal [facility] 36on 05-07-2025 36 Patient's daughter dai eft a voicemail requesting to speak with Adilia. Daughter stated that she was instructed by the patient's wound care provider (Pennie Avalos) to contact our office regarding the patient's antibiotics. Daughter's phone number is [phone]. Normal [facility] CBC WITH AUTO DIFFERENTIALon 04-23-2025 BASOPHILS ABSOLUTE COUNT (10*3/UL) BY AUTOMATED COUNT 0.0 10*3/uL Normal 0.0-0.2 [facility] Comment on above: Performed By: #### M G #### [facility] ([facility]) [address] [place] [address] VIR BASOPHILS RELATIVE PERCENT BY AUTOMATED COUNT 0.3 % Normal [facility] Comment on above: Performed By: #### M G #### [facility] ([facility]) [address] [place] [address] VIR CELLAVISION DIFFERENTIAL TYPE AUTOMATED DIFFERENTIAL Normal [facility] Comment on above: Performed By: #### M G #### [facility] ([facility]) [address] [place] [address] VIR Eosinophils (Bld) [#/Vol] 0.5 10*3/uL High 0.0-0.4 [facility] Comment on above: Performed By: #### M G #### [facility] ([facility]) [address] [place] [address] VIR EOSINOPHILS RELATIVE PERCENT BY AUTOMATED COUNT 6.0 % Normal [facility] Comment on above: Performed By: #### M G #### [facility] ([facility]) [address] [place] [address] VIR Erythrocyte distribution width (RBC) [Ratio] 15.6 % High 11.5-15 [facility] Comment on above: Performed By: #### M G #### [facility] ([facility]) [address] [place] [address] VIR Hematocrit (Bld) [Volume fraction] 33.6 % Low 39-50 [facility] Comment on above: Performed By: #### M G #### [facility] ([facility]) [address] [place] [address] VIR Hemoglobin (Bld) [Mass/Vol] 11.4 g/dL Low 13-17 [facility] Comment on above: Performed By: #### M G #### [facility] ([facility]) [address] [place] [address] VIR LYMPHOCYTES ABSOLUTE COUNT (10*3/UL) BY AUTOMATED COUNT 0.6 10*3/uL Low 1.0-3.5 [facility] Comment on above: Performed By: #### M G #### [facility] ([facility]) [address] [place] [address] VIR LYMPHOCYTES RELATIVE PERCENT BY AUTOMATED COUNT 6.7 % Normal [facility] Comment on above: Performed By: #### M G #### [facility] ([facility]) [address] [place] [address] VIR MCH (RBC) [Entitic mass] 29.0 pg Normal 27-34 [facility] Comment on above: Performed By: #### M G #### [facility] ([facility]) [address] [place] [address] VIR MCHC (RBC) [Mass/Vol] 34.1 g/dL Normal 32-36 [facility] Comment on above: Performed By: #### M G #### [facility] ([facility]) [address] [place] [address] VIR MCV (RBC) [Entitic vol] 85 fL Normal 80-100 [facility] Comment on above: Performed By: #### M G #### [facility] ([facility]) [address] [place] [address] VIR MONOCYTES ABSOLUTE COUNT (10*3/UL) BY AUTOMATED COUNT 0.6 10*3/uL Normal 0.0-0.9 [facility] Comment on above: Performed By: #### M G #### [facility] ([facility]) [address] [place], [place] [address] VIR MONOCYTES RELATIVE PERCENT BY AUTOMATED COUNT 6.5 % Normal [facility] Comment on above: Performed By: #### M G #### [facility] ([facility]) [address] [place] [address] VIR NEUTROPHILS ABSOLUTE COUNT BY AUTOMATED COUNT 7.1 10*3/uL High 1.5-6.6 [facility] Comment on above: Performed By: #### M G #### [facility] ([facility]) [address] [place] [address] VIR NEUTROPHILS RELATIVE PERCENT BY AUTOMATED COUNT 80.5 % Normal [facility] Comment on above: Performed By: #### M G #### [facility] ([facility]) [address] [place] [address] VIR Platelet mean volume (Bld) [Entitic vol] 7.3 fL Normal 7-12 [facility] Comment on above: Performed By: #### M G #### [facility] ([facility]) [address] [place] [address] VIR Platelets (Bld) [#/Vol] 187 10*3/uL Normal 150-450 [facility] Comment on above: Performed By: #### M G #### [facility] ([facility]) [address] [place] [address] VIR RBC COUNT 3.94 X10E12/L Low 4.1-5.7 [facility] Comment on above: Performed By: #### M G #### [facility] ([facility]) [address] [place] [address] VIR WBC (Bld) [#/Vol] 8.8 10*3/uL Normal 4-11 [facility] Comment on above: Performed By: #### M G #### [facility] ([facility]) [address] [place] [address] VIR COMPREHENSIVE METABOLIC PANE Taj 04-23-2025 Albumin [Mass/Vol] 3.2 g/dL Normal 3.2-5.3 [facility] Comment on above: Performed By: #### M G #### [facility] ([facility]) [address] [place] [address] VIR ALP [Catalytic activity/Vol] 52 U/L Normal 39-130 [facility] Comment on above: Performed By: #### M G #### [facility] ([facility]) [address] [place] [address] VIR ALT [Catalytic activity/Vol] 13 U/L Normal <=40 [facility] Comment on above: Performed By: #### M G #### [facility] ([facility]) [address] [place] [address] VIR Anion gap [Moles/Vol] 8 mmol/L Normal 5-15 [facility] Comment on above: Performed By: #### M G #### [facility] ([facility]) [address] [place] [address] VIR AST [Catalytic activity/Vol] 21 U/L Normal <=41 [facility] Comment on above: Performed By: #### M G #### [facility] ([facility]) [address] [place] [address] VIR Bilirubin [Mass/Vol] 0.3 mg/dL Normal 0.3-1.2 [facility] Comment on above: Performed By: #### M G #### [facility] ([facility]) [address] [place] [address] VIR Calcium [Mass/Vol] 7.8 mg/dL Low 8.5-10.5 [facility] Comment on above: Performed By: #### M G #### [facility] ([facility]) [address] [place] [address] VIR Chloride [Moles/Vol] 108 mmol/L Normal 98-109 [facility] Comment on above: Performed By: #### M G #### [facility] ([facility]) [address] [place] [address] VIR CO2 [Moles/Vol] 27 mmol/L Normal 22-32 [facility] Comment on above: Performed By: #### M G #### [facility] ([facility]) [address] [place] [address] VIR Creatinine [Mass/Vol] 1.54 mg/dL High 0.60-1.30 [facility] Comment on above: Result Comment: METH OD TRACEABLE TO IDMS STANDARD Performed By: #### M G #### [facility] ([facility]) [address] [place] [address] VIR GFR/1.73 sq M.predicted among non-blacks MDRD (S/P/Bld) [Vol rate/Area] 44 mL/min/{1.73_m2} Low >=60 [facility] Comment on above: Result Comment: Repo rted eGFR is based on the CKD-EPI 2020 equation that does not use a race coefficient. Performed By: #### M G #### [facility] ([facility]) [address] [place] [address] VIR Glucose [Mass/Vol] 123 mg/dL High 65-99 [facility] Comment on above: Performed By: #### M G #### [facility] ([facility]) [address] [place] [address] VIR Potassium [Moles/Vol] 4.3 mmol/L Normal 3.5-5.0 [facility] Comment on above: Performed By: #### M G #### [facility] ([facility]) [address] [place] [address] VIR Protein [Mass/Vol] 5.0 g/dL Low 6.0-8.0 [facility] Comment on above: Performed By: #### M G #### [facility] ([facility]) [address] [place] [address] VIR Sodium [Moles/Vol] 143 mmol/L Normal 134-146 [facility] Comment on above: Performed By: #### M G #### [facility] ([facility]) [address] [place] [address] VIR Urea nitrogen [Mass/Vol] 25 mg/dL Normal 5-27 [facility] Comment on above: Performed By: #### M G #### [facility] ([facility]) [address] [place] [address] VIR MAGNESIUMon 04-23-2025 Magnesium [Mass/Vol] 1.7 mg/dL Low 1.8-2.6 [facility] Comment on above: Performed By: #### M G #### [facility] ([facility]) [address] [place] [address] VIR CBC WITH AUTO DIFFERENTIALon 04-22-2025 BASOPHILS ABSOLUTE COUNT (10*3/UL) BY AUTOMATED COUNT 0.0 10*3/uL Normal 0.0-0.2 [facility] Comment on above: Performed By: #### C BCA #### [facility] ([facility]) [address] [place] [address] VIR BASOPHILS RELATIVE PERCENT BY AUTOMATED COUNT 0.2 % Normal [facility] Comment on above: Performed By: #### C BCA #### [facility] ([facility]) [address] [place] [address] VIR CELLAVISION DIFFERENTIAL TYPE AUTOMATED DIFFERENTIAL Normal [facility] Comment on above: Performed By: #### C BCA #### [facility] [facility] ([facility]) [address] [place], [place] [address] VIR Eosinophils (Bld) [#/Vol] 0.0 10*3/uL Normal 0.0-0.4 [facility] Comment on above: Performed By: #### C BCA #### [facility] ([facility]) [address] [place], [place] [address] VIR EOSINOPHILS RELATIVE PERCENT BY AUTOMATED COUNT 0.0 % Normal [facility] Comment on above: Performed By: #### C BCA #### [facility] ([facility]) [address] [place], [place] [address] VIR Erythrocyte distribution width (RBC) [Ratio] 15.5 % High 11.5-15 [facility] Comment on above: Performed By: #### C BCA #### [facility] ([facility]) [address] [place], [place] [address] VIR Hematocrit (Bld) [Volume fraction] 33.9 % Low 39-50 [facility] Comment on above: Performed By: #### C BCA #### [facility] ([facility]) [address] [place], [place] [address] VIR Hemoglobin (Bld) [Mass/Vol] 12.0 g/dL Low 13-17 [facility] Comment on above: Performed By: #### C BCA #### [facility] ([facility]) [address] [place], [place] [address] VIR LYMPHOCYTES ABSOLUTE COUNT (10*3/UL) BY AUTOMATED COUNT 0.3 10*3/uL Low 1.0-3.5 [facility] Comment on above: Performed By: #### C BCA #### [facility] ([facility]) [address] [place] [address] VIR LYMPHOCYTES RELATIVE PERCENT BY AUTOMATED COUNT 2.9 % Normal [facility] Comment on above: Performed By: #### C BCA #### [facility] ([facility]) [address] [place] [address] VIR MCH (RBC) [Entitic mass] 29.6 pg Normal 27-34 [facility] Comment on above: Performed By: #### C BCA #### [facility] ([facility]) [address] [place] [address] VIR MCHC (RBC) [Mass/Vol] 35.3 g/dL Normal 32-36 [facility] Comment on above: Performed By: #### C BCA #### [facility] ([facility]) [address] [place] [address] VIR MCV (RBC) [Entitic vol] 84 fL Normal 80-100 [facility] Comment on above: Performed By: #### C BCA #### [facility] ([facility]) [address] [place] [address] VIR MONOCYTES ABSOLUTE COUNT (10*3/UL) BY AUTOMATED COUNT 0.6 10*3/uL Normal 0.0-0.9 [facility] Comment on above: Performed By: #### C BCA #### [facility] ([facility]) [address] [place] [address] VIR MONOCYTES RELATIVE PERCENT BY AUTOMATED COUNT 5.5 % Normal [facility] Comment on above: Performed By: #### C BCA #### [facility] ([facility]) [address] [place] [address] VIR NEUTROPHILS ABSOLUTE COUNT BY AUTOMATED COUNT 10.0 10*3/uL High 1.5-6.6 [facility] Comment on above: Performed By: #### C BCA #### [facility] ([facility]) [address] [place] [address] VIR NEUTROPHILS RELATIVE PERCENT BY AUTOMATED COUNT 91.4 % Normal [facility] Comment on above: Performed By: #### C BCA #### [facility] ([facility]) [address] [place] [address] VIR Platelet mean volume (Bld) [Entitic vol] 7.5 fL Normal 7-12 [facility] Comment on above: Performed By: #### C BCA #### [facility] ([facility]) [address] [place] [address] VIR Platelets (Bld) [#/Vol] 211 10*3/uL Normal 150-450 [facility] Comment on above: Performed By: #### C BCA #### [facility] ([facility]) [address] [place] [address] VIR RBC COUNT 4.04 X10E12/L Low 4.1-5.7 [facility] Comment on above: Performed By: #### C BCA #### [facility] ([facility]) [address] [place] [address] VIR WBC (Bld) [#/Vol] 10.9 10*3/uL Normal 4-11 [facility] Comment on above: Performed By: #### C BCA #### [facility] ([facility]) [address] [place] [address] VIR CNPNon 04-22-2025 CNPN Telephone (HEMTSA) JUAN JOSE AUSTIN ([id number]) 1940 M Date Time Provider Department 04/22/25 CAESAR VAZQUEZ [facility] During your visit today, we recorded the following information about you: Shannan Castelan RN 04/22/2025 9:11 AM Signed Pt scheduled for CT tomorrow. Currently hospitalized at [facility] in [place]. New defibrillator placed- site became reddened and erode at insertion site. Pt will call back to reschedule CT and f/u appt. Yu Martinez to scan notes in chart Thank You! Shannan Castelan RN Allergies As of Date: 04/22/2025 Noted Allergy Reaction DESONIDE 11/05/2023 16 - Unknown TAPE (ADHESIVE TAPE (ROSINS)) 07/14/2018 14 - Other: See Comments Comments: Severe blisters Date Reviewed: 10/23/2024 Reviewed by: Kamila Norman MA - Fully Assessed Reason for Visit: Patient Update [1234] Prescriptions as of 04/22/2025 - iv contrast (will be provided with radiology [...] in the CT contrast administration guidelines link. - enteric contrast (will be provided with radiology test) For CT CHESTABD/PEL W IVCON Routine order Administer, As Directed One Time Only, via Oral, Rectal, both Oral and Rectal, Enteric Tube, Stoma or Indwelling Catheter, Enteric Contrast as designated per enteric contrast guidelines - clopidogrel (PLAVIX) 75 mg tablet Take 75 mg by mouth once daily. - isosorbide mononitrate ER (IMDUR) 30 mg 24 hr tablet Take 30 mg by mouth once daily. - lactobacillus acidophilus 100 mg (1 billion cell) cap(s) Take by mouth. - cranberry fruit (CRANBERRY) 450 mg tab Take 1 capsule by mouth every morning. - omeprazole (PRILOSEC) 20 mg capsule Take 1 capsule by mouth once daily. - magnesium oxide 400 mg magnesium tab Take 400 mg by mouth. - hyoscyamine (LEVSIN) 0.125 mg tablet Take 125 mcg by mouth. - predniSONE (DELTASONE) 20 mg tablet Take 1 tablet by mouth once daily. Prednisone 20 mg for 5 days then 10 mg daily. - ondansetron orally disintegrating (ZOFRAN ODT) 4 mg disintegrating tablet - pantoprazole DR (PROTONIX) 40 mg tablet - isosorbide dinitrate (ISORDIL) 20 mg tablet Take 20 mg by mouth three times a day. - levothyroxine (SYNTHROID) 25 mcg tablet 1 tablet in the morning on an empty stomach Orally Once a day for 30 days - tamsulosin (FLOMAX) 0.4 mg Take 1 capsule by mouth once daily. - ferrous sulfate 325 mg (65 mg iron) tablet Take 325 mg by mouth every other day. - pembrolizumab (KEYTRUDA) 25 mg/mL injection Inject intravenously. - losartan (COZAAR) 50 mg tablet Take 50 mg by mouth two times a day. - potassium chloride (K-TAB) 10 mEq tablet Take 10 mEq by mouth twice daily. - metoprolol succinate ER (TOPROL XL) 25 mg 24 hr tablet Take 25 mg by mouth once daily. - amLODIPine (NORVASC) 10 mg tablet Take 10 mg by mouth once daily. - hydrALAZINE (APRESOLINE) 25 mg tablet Take 25 mg by mouth three times a day. - furosemide (LASIX) 40 mg tablet Take 40 mg by mouth as needed. - aspirin, enteric coated (ASPIRIN, ENTERIC COATED) 81 mg EC tablet Take 81 mg by mouth once daily. - Glucosamine-Chondroitin 500-400 mg tablet Take 1 tablet by mouth once daily. - folic acid/multivit-min/lutein (CENTRUM SILVER ORAL) Take 1 tablet by mouth once daily. - atorvastatin (LIPITOR) 80 mg tablet Take 80 mg by mouth once daily. 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 Gastro-esophageal reflux disease without esopha*08/10/2019 Hypertensive heart disease with heart failure (*07/11/2021 CELSO (acute kidney injury) (HCC) [N17.9] 11/01/2021 Malignant neoplasm of urinary bladder (HCC) [C6*11/10/2021 Obesity, Class I, BMI 30-34.9 [E66.811] 03/27/2022 Gross hematuria [R31.0] 11/14/2022 CKD (chronic kidney disease), stage V (HCC) [N1*11/29/2023 Encounter Status:Closed by SHANNAN CASTELAN on 04/22/25 Normal [facility] METABOLIC PANE Taj 04-22-2025 Albumin [Mass/Vol] 3.2 g/dL Normal 3.2-5.3 [facility] Comment on above: Performed By: #### C BCA #### [facility] ([facility]) [address] [place] [address] VIR ALP [Catalytic activity/Vol] 48 U/L Normal 39-130 [facility] Comment on above: Performed By: #### C BCA #### [facility] ([facility]) [address] [place] [address] VIR ALT [Catalytic activity/Vol] 14 U/L Normal <=40 [facility] Comment on above: Performed By: #### C BCA #### [facility] ([facility]) [address] [place] [address] VIR Anion gap [Moles/Vol] 9 mmol/L Normal 5-15 [facility] Comment on above: Performed By: #### C BCA #### [facility] ([facility]) [address] [place] [address] VIR AST [Catalytic activity/Vol] 24 U/L Normal <=41 [facility] Comment on above: Performed By: #### C BCA #### [facility] ([facility]) [address] [place] [address] VIR Bilirubin [Mass/Vol] 0.3 mg/dL Normal 0.3-1.2 [facility] Comment on above: Performed By: #### C BCA #### [facility] ([facility]) [address] [place] [address] VIR Calcium [Mass/Vol] 8.0 mg/dL Low 8.5-10.5 [facility] Comment on above: Performed By: #### C BCA #### [facility] ([facility]) [address] [place] [address] VIR Chloride [Moles/Vol] 111 mmol/L High 98-109 [facility] Comment on above: Performed By: #### C BCA #### [facility] ([facility]) [address] [place] [address] VIR CO2 [Moles/Vol] 24 mmol/L Normal 22-32 [facility] Comment on above: Performed By: #### C BCA #### [facility] ([facility]) [address] [place] [address] VIR Creatinine [Mass/Vol] 1.48 mg/dL High 0.60-1.30 [facility] Comment on above: Result Comment: METH OD TRACEABLE TO IDMS STANDARD Performed By: #### C BCA #### [facility] ([facility]) [address] [place] [address] VIR GFR/1.73 sq M.predicted among non-blacks MDRD (S/P/Bld) [Vol rate/Area] 46 mL/min/{1.73_m2} Low >=60 [facility] Comment on above: Result Comment: Repo rted eGFR is based on the CKD-EPI 2020 equation that does not use a race coefficient. Performed By: #### C BCA #### [facility] ([facility]) [address] [place] [address] VIR Glucose [Mass/Vol] 147 mg/dL High 65-99 [facility] Comment on above: Performed By: #### C BCA #### [facility] ([facility]) [address] [place] [address] VIR Potassium [Moles/Vol] 4.3 mmol/L Normal 3.5-5.0 [facility] Comment on above: Performed By: #### C BCA #### [facility] ([facility]) [address] [place] [address] VIR Protein [Mass/Vol] 4.9 g/dL Low 6.0-8.0 [facility] Comment on above: Performed By: #### C BCA #### [facility] ([facility]) [address] [place] [address] VIR Sodium [Moles/Vol] 144 mmol/L Normal 134-146 [facility] Comment on above: Performed By: #### C BCA #### [facility] ([facility]) [address] [place] [address] VIR Urea nitrogen [Mass/Vol] 23 mg/dL Normal 5-27 [facility] Comment on above: Performed By: #### C BCA #### [facility] ([facility]) [address] [place] [address] VIR IONIZED CALCIUMon 04-22-2025 IONIZED CALCIUM - ICAN 4.6 mg/dL Normal 4.5-5.3 [facility] Comment on above: Performed By: #### C BCA #### [facility] ([facility]) [address] [place] [address] VIR MAGNESIUMon 04-22-2025 Magnesium [Mass/Vol] 1.9 mg/dL Normal 1.8-2.6 [facility] Comment on above: Performed By: #### C BCA #### [facility] ([facility]) [address] [place] [address] VIR VANCOMYCIN, RANDOMon 025 VANCOMYCIN 12.9 ug/mL Normal 5.0-40.0 [facility] Comment on above: Order Comment: Peak 30-40 ug/mLTrough 5-20 ug/ml Performed By: #### C BCA #### [facility] ([facility]) [address] [place] [address] VIR BEDSIDE GLUCOSEon 04-21-2025 Glucose [Mass/Vol] 160 mg/dL High 65-99 [facility] Comment on above: Performed By: #### C BCA #### [facility] ([facility]) [address] [place] [address] VIR CBC WITH AUTO DIFFERENTIALon 04-21-2025 BASOPHILS ABSOLUTE COUNT (10*3/UL) BY AUTOMATED COUNT 0.0 10*3/uL Normal 0.0-0.2 [facility] Comment on above: Performed By: #### W CSUP #### [facility] ([facility]) [address] [place] [address] VIR BASOPHILS RELATIVE PERCENT BY AUTOMATED COUNT 0.7 % Normal [facility] Comment on above: Performed By: #### W CSUP #### [facility] ([facility]) [address] [place] [address] VIR CELLAVISION DIFFERENTIAL TYPE AUTOMATED DIFFERENTIAL Normal [facility] Comment on above: Performed By: #### W CSUP #### [facility] ([facility]) [address] [place] [address] VIR Eosinophils (Bld) [#/Vol] 0.4 10*3/uL Normal 0.0-0.4 [facility] Comment on above: Performed By: #### W CSUP #### [facility] ([facility]) [address] [place] [address] VIR EOSINOPHILS RELATIVE PERCENT BY AUTOMATED COUNT 6.7 % Normal [facility] Comment on above: Performed By: #### W CSUP #### [facility] ([facility]) [address] [place] [address] VIR Erythrocyte distribution width (RBC) [Ratio] 15.7 % High 11.5-15 [facility] Comment on above: Performed By: #### W CSUP #### [facility] ([facility]) [address] [place] [address] VIR Hematocrit (Bld) [Volume fraction] 36.3 % Low 39-50 [facility] Comment on above: Performed By: #### W CSUP #### [facility] ([facility]) [address] [place] [address] VIR Hemoglobin (Bld) [Mass/Vol] 12.6 g/dL Low 13-17 [facility] Comment on above: Performed By: #### W CSUP #### [facility] ([facility]) [address] [place] [address] VIR LYMPHOCYTES ABSOLUTE COUNT (10*3/UL) BY AUTOMATED COUNT 0.6 10*3/uL Low 1.0-3.5 [facility] Comment on above: Performed By: #### W CSUP #### [facility] ([facility]) [address] [place] [address] VIR LYMPHOCYTES RELATIVE PERCENT BY AUTOMATED COUNT 11.3 % Normal [facility] Comment on above: Performed By: #### W CSUP #### [facility] ([facility]) [address] [place] [address] VIR MCH (RBC) [Entitic mass] 29.1 pg Normal 27-34 [facility] Comment on above: Performed By: #### W CSUP #### [facility] ([facility]) [address] [place] [address] VIR MCHC (RBC) [Mass/Vol] 34.7 g/dL Normal 32-36 [facility] Comment on above: Performed By: #### W CSUP #### [facility] ([facility]) [address] [place] [address] VIR MCV (RBC) [Entitic vol] 84 fL Normal 80-100 [facility] Comment on above: Performed By: #### W CSUP #### [facility] ([facility]) [address] [place] [address] VIR MONOCYTES ABSOLUTE COUNT (10*3/UL) BY AUTOMATED COUNT 0.4 10*3/uL Normal 0.0-0.9 [facility] Comment on above: Performed By: #### W CSUP #### [facility] ([facility]) [address] [place] [address] VIR MONOCYTES RELATIVE PERCENT BY AUTOMATED COUNT 6.3 % Normal [facility] Comment on above: Performed By: #### W CSUP #### [facility] ([facility]) [address] [place] [address] VIR NEUTROPHILS ABSOLUTE COUNT BY AUTOMATED COUNT 4.2 10*3/uL Normal 1.5-6.6 [facility] Comment on above: Performed By: #### W CSUP #### [facility] ([facility]) [address] [place] [address] VIR NEUTROPHILS RELATIVE PERCENT BY AUTOMATED COUNT 75.0 % Normal [facility] Comment on above: Performed By: #### W CSUP #### [facility] ([facility]) [address] [place] [address] VIR Platelet mean volume (Bld) [Entitic vol] 7.4 fL Normal 7-12 [facility] Comment on above: Performed By: #### W CSUP #### [facility] ([facility]) [address] [place] [address] VIR Platelets (Bld) [#/Vol] 201 10*3/uL Normal 150-450 [facility] Comment on above: Performed By: #### W CSUP #### [facility] ([facility]) [address] [place] [address] VIR RBC COUNT 4.34 X10E12/L Normal 4.1-5.7 [facility] Comment on above: Performed By: #### W CSUP #### [facility] ([facility]) [address] [place] [address] VIR WBC (Bld) [#/Vol] 5.6 10*3/uL Normal 4-11 [facility] Comment on above: Performed By: #### W CSUP #### [facility] ([facility]) [address] [place] [address] VIR COMPREHENSIVE METABOLIC PANE Taj 04-21-2025 Albumin [Mass/Vol] 3.5 g/dL Normal 3.2-5.3 [facility] Comment on above: Performed By: #### W CSUP #### [facility] ([facility]) [address] [place] [address] VIR ALP [Catalytic activity/Vol] 51 U/L Normal 39-130 [facility] Comment on above: Performed By: #### W CSUP #### [facility] ([facility]) [address] [place] [address] VIR ALT [Catalytic activity/Vol] 9 U/L Normal <=40 [facility] Comment on above: Performed By: #### W CSUP #### [facility] ([facility]) [address] [place] [address] VIR Anion gap [Moles/Vol] 6 mmol/L Normal 5-15 [facility] Comment on above: Performed By: #### W CSUP #### [facility] ([facility]) [address] [place] [address] VIR AST [Catalytic activity/Vol] 19 U/L Normal <=41 [facility] Comment on above: Performed By: #### W CSUP #### [facility] ([facility]) [address] [place] [address] VIR Bilirubin [Mass/Vol] 0.5 mg/dL Normal 0.3-1.2 [facility] Comment on above: Performed By: #### W CSUP #### [facility] ([facility]) [address] [place] [address] VIR Calcium [Mass/Vol] 8.5 mg/dL Normal 8.5-10.5 [facility] Comment on above: Performed By: #### W CSUP #### [facility] ([facility]) [address] [place] [address] VIR Chloride [Moles/Vol] 110 mmol/L High 98-109 [facility] Comment on above: Performed By: #### W CSUP #### [facility] ([facility]) [address] [place] [address] VIR CO2 [Moles/Vol] 28 mmol/L Normal 22-32 [facility] Comment on above: Performed By: #### W CSUP #### [facility] ([facility]) [address] [place] [address] VIR Creatinine [Mass/Vol] 1.43 mg/dL High 0.60-1.30 [facility] Comment on above: Result Comment: METH OD TRACEABLE TO IDMS STANDARD Performed By: #### W CSUP #### [facility] ([facility]) [address] [place] [address] VIR GFR/1.73 sq M.predicted among non-blacks MDRD (S/P/Bld) [Vol rate/Area] 48 mL/min/{1.73_m2} Low >=60 [facility] Comment on above: Result Comment: Repo rted eGFR is based on the CKD-EPI 2020 equation that does not use a race coefficient. Performed By: #### W CSUP #### [facility] ([facility]) [address] [place] [address] VIR Glucose [Mass/Vol] 104 mg/dL High 65-99 [facility] Comment on above: Performed By: #### W CSUP #### [facility] ([facility]) [address] [place] [address] VIR Potassium [Moles/Vol] 4.0 mmol/L Normal 3.5-5.0 [facility] Comment on above: Performed By: #### W CSUP #### [facility] ([facility]) [address] [place], [place] [address] VIR Protein [Mass/Vol] 5.3 g/dL Low 6.0-8.0 [facility] Comment on above: Performed By: #### W CSUP #### [facility] ([facility]) [address] [place], [place] [address] VIR Sodium [Moles/Vol] 144 mmol/L Normal 134-146 [facility] Comment on above: Performed By: #### W CSUP #### [facility] ([facility]) [address] [place], [place] [address] VIR [place] nitrogen [Mass/Vol] 22 mg/dL Normal 5-27 [facility] Comment on above: Performed By: #### W CSUP #### [facility] ([facility]) [address] [place], [place] [address] VIR MAGNESIUMon 04-21-2025 Magnesium [Mass/Vol] 2.0 mg/dL Normal 1.8-2.6 [facility] Comment on above: Performed By: #### W CSUP #### [facility] ([facility]) [address] [place], [place] [address] VIR REPEATED ABORHon 04-21-2025 ABO_INTEP O Normal [facility] Comment on above: Performed By: #### W CSUP #### [facility] ([facility]) [address] [place], [place] [address] VIR RH_INTEP Positive Normal [facility] Comment on above: Performed By: #### W CSUP #### [facility] ([facility]) [address] [place], [place] [address] VIR TYPE AND SCREENon 04-21-2025 ABO_INTEP O Normal [facility] Comment on above: Performed By: #### W CSUP #### [facility] ([facility]) [address] [place], [place] [address] VIR RH_INTEP Positive Normal [facility] Comment on above: Performed By: #### W CSUP #### [facility] ([facility]) [address] [place], [place] [address] VIR VANCOMYCIN, RANDOMon 025 VANCOMYCIN 11.5 ug/mL Normal 5.0-40.0 [facility] Comment on above: Order Comment: Along with Rare Normal Skin [place]. Performed By: #### W CSUP #### [facility] ([facility]) [address] [place] [address] VIR WOUND CULTURE SURGICAL DEEP INCLUDES GRAM STAINon 04-21-2025 WOUND CULTURE SURGICAL DEEP INCLUDES GRAM STAIN CULTURE RESULTS NO GROWTH 2 DAYS GRAM STAIN 10 to 24 White Blood Cells/LPF 0 Squamous Epithelial Cells/LPF No organisms seen Normal [facility] Comment on above: Order Comment: Pre-o p diagnosis:pocket errosion, chb Performed By: #### C BCA #### [facility] ([facility]) [address] [place] [address] VIR WOUND CULTURE SURGICAL DEEP INCLUDES GRAM STAIN CULTURE RESULTS STAPHYLOCOCCUS AUREUS Staphylococcus aureus STAPHYLOCOCCUS AUREUS Staphylococcus aureus Variant STAPHYLOCOCCUS AUREUS Staphylococcus aureus 2nd Variant [ S = SUSCEPTIBLE R = RESISTANT I = INTERMEDIATE S-DO = Susceptible-dose dependent NS = Non-suscceptible NO = No Interpretation ] Organism: STAPHYLOCOCCUS AUREUS Antibiotic Interpretation ADONAY Status Clindamycin R 0.25 F Inducible resistance to Clindamycin detected Doxycycline S <=^0.5 F Oxacillin S <=^0.25 F Trimethoprim + Sulfamethoxazole S <=^0.5 F Vancomycin S 1.0 F Cefazolin S F Susceptibility Comment F [ S = SUSCEPTIBLE R = RESISTANT I = INTERMEDIATE S-DO = Susceptible-dose dependent NS = Non-suscceptible NO = No Interpretation ] Organism: STAPHYLOCOCCUS AUREUS Antibiotic Interpretation ADONAY Status Clindamycin R 0.25 F Inducible resistance to Clindamycin detected Doxycycline S <=^0.5 F Oxacillin S 0.5 F Trimethoprim + Sulfamethoxazole S <=^0.5 F Vancomycin S <=^0.5 F Cefazolin S F Susceptibility Comment F [ S = SUSCEPTIBLE R = RESISTANT I = INTERMEDIATE S-DO = Susceptible-dose dependent NS = Non-suscceptible NO = No Interpretation ] Organism: STAPHYLOCOCCUS AUREUS Antibiotic Interpretation ADONAY Status Clindamycin R 0.25 F Inducible resistance to Clindamycin detected Doxycycline S <=^0.5 F Oxacillin S 0.5 F Trimethoprim + Sulfamethoxazole S <=^0.5 F Vancomycin S 1.0 F Cefazolin S F Susceptibility Comment F Normal [facility] Comment on above: Order Comment: Pre-o p diagnosis:pocket errosion, chb Performed By: #### C BCA #### [facility] ([facility]) [address] [place] [address] VIR WOUND CULTURE SURGICAL DEEP INCLUDES GRAM STAIN CULTURE RESULTS STAPHYLOCOCCUS AUREUS Staphylococcus aureus STAPHYLOCOCCUS, COAGULASE NEGATIVE Staphylococcus, coagulase negative Not S. lugdunensis STAPHYLOCOCCUS AUREUS Staphylococcus aureus Variant Isolate screened susceptible to Oxacillin. [ S = SUSCEPTIBLE R = RESISTANT I = INTERMEDIATE S-DO = Susceptible-dose dependent NS = Non-suscceptible NO = No Interpretation ] Organism: STAPHYLOCOCCUS AUREUS Antibiotic Interpretation ADONAY Status Clindamycin R 0.25 F Inducible resistance to Clindamycin detected Doxycycline S <=^0.5 F Oxacillin S <=^0.25 F Trimethoprim + Sulfamethoxazole S <=^0.5 F Vancomycin S 1.0 F Cefazolin S F Susceptibility Comment F [ S = SUSCEPTIBLE R = RESISTANT I = INTERMEDIATE S-DO = Susceptible-dose dependent NS = Non-suscceptible NO = No Interpretation ] Organism: STAPHYLOCOCCUS AUREUS Antibiotic Interpretation ADONAY Status Clindamycin R 0.25 F Inducible resistance to Clindamycin detected Trimethoprim + Sulfamethoxazole S <=^0.5 F Vancomycin S <=^0.5 F Susceptibility Comment F Normal [facility] Comment on above: Order Comment: Pre-o p diagnosis:pocket errosion, chb Performed By: #### C BCA #### [facility] ([facility]) [address] [place] [address] VIR XR CHEST 1 VWon 04-21-2025 XR CHEST 1 VW XR CHEST 1 VW Single view chest History:Assess for dual chamber leadless pacemaker position Difficulty breathing, shortness of breath Comparison: 04/19/2025 Findings: Single portable view of the chest. Bilateral lower lung atelectasis versus pneumonia. Cardiomediastinal silhouette is stable. Expiratory changes. There is a new pacemaker device overlying the right heart border. Impression: Bilateral lower lung atelectasis versus pneumonia. Finalized by Lio Licea MD on 04/21/2025 9:14 PM Normal [facility] BLOOD CULTUREon 04-20-2025 Bacteria identified Cx Nom (Bld) CULTURE RESULTS NO GROWTH 5 DAYS Normal [facility] Comment on above: Order Comment: Along with Rare Normal Skin [place]. Performed By: #### W CSUP #### [facility] ([facility]) [address] [place] [address] VIR CBC WITH AUTO DIFFERENTIALon 04-20-2025 BASOPHILS ABSOLUTE COUNT (10*3/UL) BY AUTOMATED COUNT 0.1 10*3/uL Normal 0.0-0.2 [facility] Comment on above: Performed By: #### C BCA #### [facility] ([facility]) [address] [place] [address] VIR BASOPHILS RELATIVE PERCENT BY AUTOMATED COUNT 1.1 % Normal [facility] Comment on above: Performed By: #### C BCA #### [facility] ([facility]) [address] [place] [address] VIR CELLAVISION DIFFERENTIAL TYPE AUTOMATED DIFFERENTIAL Normal [facility] Comment on above: Performed By: #### C BCA #### [facility] ([facility]) [address] [place] [address] VIR Eosinophils (Bld) [#/Vol] 0.2 10*3/uL Normal 0.0-0.4 [facility] Comment on above: Performed By: #### C BCA #### [facility] ([facility]) [address] [place] [address] VIR EOSINOPHILS RELATIVE PERCENT BY AUTOMATED COUNT 4.5 % Normal [facility] Comment on above: Performed By: #### C BCA #### [facility] ([facility]) [address] [place] [address] VIR Erythrocyte distribution width (RBC) [Ratio] 15.6 % High 11.5-15 [facility] Comment on above: Performed By: #### C BCA #### [facility] ([facility]) [address] [place] [address] VIR Hematocrit (Bld) [Volume fraction] 37.1 % Low 39-50 [facility] Comment on above: Performed By: #### C BCA #### [facility] ([facility]) [address] [place] [address] VIR Hemoglobin (Bld) [Mass/Vol] 12.9 g/dL Low 13-17 [facility] Comment on above: Performed By: #### C BCA #### [facility] ([facility]) [address] [place] [address] VIR LYMPHOCYTES ABSOLUTE COUNT (10*3/UL) BY AUTOMATED COUNT 0.7 10*3/uL Low 1.0-3.5 [facility] Comment on above: Performed By: #### C BCA #### [facility] ([facility]) [address] [place] [address] VIR LYMPHOCYTES RELATIVE PERCENT BY AUTOMATED COUNT 14.7 % Normal [facility] Comment on above: Performed By: #### C BCA #### [facility] ([facility]) [address] [place] [address] VIR MCH (RBC) [Entitic mass] 29.1 pg Normal 27-34 [facility] Comment on above: Performed By: #### C BCA #### [facility] ([facility]) [address] [place] [address] VIR MCHC (RBC) [Mass/Vol] 34.8 g/dL Normal 32-36 [facility] Comment on above: Performed By: #### C BCA #### [facility] ([facility]) [address] [place] [address] VIR MCV (RBC) [Entitic vol] 84 fL Normal 80-100 [facility] Comment on above: Performed By: #### C BCA #### [facility] ([facility]) [address] [place] [address] VIR MONOCYTES ABSOLUTE COUNT (10*3/UL) BY AUTOMATED COUNT 0.3 10*3/uL Normal 0.0-0.9 [facility] Comment on above: Performed By: #### C BCA #### [facility] ([facility]) [address] [place] [address] VIR MONOCYTES RELATIVE PERCENT BY AUTOMATED COUNT 7.0 % Normal [facility] Comment on above: Performed By: #### C BCA #### [facility] ([facility]) [address] [place] [address] VIR NEUTROPHILS ABSOLUTE COUNT BY AUTOMATED COUNT 3.5 10*3/uL Normal 1.5-6.6 [facility] Comment on above: Performed By: #### C BCA #### [facility] ([facility]) [address] [place] [address] VIR NEUTROPHILS RELATIVE PERCENT BY AUTOMATED COUNT 72.7 % Normal [facility] Comment on above: Performed By: #### C BCA #### [facility] ([facility]) [address] [place] [address] VIR Platelet mean volume (Bld) [Entitic vol] 7.3 fL Normal 7-12 [facility] Comment on above: Performed By: #### C BCA #### [facility] ([facility]) [address] [place] [address] VIR Platelets (Bld) [#/Vol] 205 10*3/uL Normal 150-450 [facility] Comment on above: Performed By: #### C BCA #### [facility] ([facility]) [address] [place] [address] VIR RBC COUNT 4.44 X10E12/L Normal 4.1-5.7 [facility] Comment on above: Performed By: #### C BCA #### [facility] ([facility]) [address] [place] [address] VIR WBC (Bld) [#/Vol] 4.8 10*3/uL Normal 4-11 [facility] Comment on above: Performed By: #### C BCA #### [facility] ([facility]) [address] [place] [address] VIR COMPREHENSIVE METABOLIC PANE Taj 04-20-2025 Albumin [Mass/Vol] 3.5 g/dL Normal 3.2-5.3 [facility] Comment on above: Performed By: #### C MP #### [facility] ([facility]) [address] [place] [address] VIR ALP [Catalytic activity/Vol] 55 U/L Normal 39-130 [facility] Comment on above: Performed By: #### C MP #### [facility] ([facility]) [address] [place] [address] VIR ALT [Catalytic activity/Vol] 10 U/L Normal <=40 [facility] Comment on above: Performed By: #### C MP #### [facility] ([facility]) [address] [place] [address] VIR Anion gap [Moles/Vol] 8 mmol/L Normal 5-15 [facility] Comment on above: Performed By: #### C MP #### [facility] ([facility]) [address] [place] [address] VIR AST [Catalytic activity/Vol] 23 U/L Normal <=41 [facility] Comment on above: Performed By: #### C MP #### [facility] ([facility]) [address] [place] [address] VIR Bilirubin [Mass/Vol] 0.3 mg/dL Normal 0.3-1.2 [facility] Comment on above: Performed By: #### C MP #### [facility] ([facility]) [address] [place] [address] VIR Calcium [Mass/Vol] 8.3 mg/dL Low 8.5-10.5 [facility] Comment on above: Performed By: #### C MP #### [facility] ([facility]) [address] [place] [address] VIR Chloride [Moles/Vol] 110 mmol/L High 98-109 [facility] Comment on above: Performed By: #### C MP #### [facility] ([facility]) [address] [place] [address] VIR CO2 [Moles/Vol] 25 mmol/L Normal 22-32 [facility] Comment on above: Performed By: #### C MP #### [facility] ([facility]) [address] [place] [address] VIR Creatinine [Mass/Vol] 1.58 mg/dL High 0.60-1.30 [facility] Comment on above: Result Comment: METH OD TRACEABLE TO IDMS STANDARD Performed By: #### C MP #### [facility] ([facility]) [address] [place] [address] VIR GFR/1.73 sq M.predicted among non-blacks MDRD (S/P/Bld) [Vol rate/Area] 43 mL/min/{1.73_m2} Low >=60 [facility] Comment on above: Result Comment: Repo rted eGFR is based on the CKD-EPI 2020 equation that does not use a race coefficient. Performed By: #### C MP #### [facility] ([facility]) [address] [place] [address] VIR Glucose [Mass/Vol] 93 mg/dL Normal 65-99 [facility] Comment on above: Performed By: #### C MP #### [facility] ([facility]) [address] [place] [address] VIR Potassium [Moles/Vol] 3.4 mmol/L Low 3.5-5.0 [facility] Comment on above: Performed By: #### C MP #### [facility] ([facility]) [address] [place] [address] VIR Protein [Mass/Vol] 5.7 g/dL Low 6.0-8.0 [facility] Comment on above: Performed By: #### C MP #### [facility] ([facility]) [address] [place] [address] VIR Sodium [Moles/Vol] 143 mmol/L Normal 134-146 [facility] Comment on above: Performed By: #### C MP #### [facility] ([facility]) [address] [place] [address] VIR Urea nitrogen [Mass/Vol] 25 mg/dL Normal 5-27 [facility] Comment on above: Performed By: #### C MP #### [facility] ([facility]) [address] [place] [address] VIR LACTATE W/ REFLEXon 04-20-20 25 LACTATE W/REFLEX 0.9 mmol/L Normal 0.4-2.0 [facility] Comment on above: Order Comment: Resul t did not trigger repeat Lactate, re-order if needed. Performed By: #### L ACTS #### [facility] ([facility]) [address] [place] [address] VIR MAGNESIUMon 04-20-2025 Magnesium [Mass/Vol] 2.1 mg/dL Normal 1.8-2.6 [facility] Comment on above: Performed By: #### M G #### [facility] ([facility]) [address] [place] [address] VIR POTASSIUMon 04-20-2025 Potassium [Moles/Vol] 4.0 mmol/L Normal 3.5-5.0 [facility] Comment on above: Performed By: #### K #### [facility] ([facility]) [address] [place] [address] VIR PROCALCITONINon 04-20-2025 PROCALCITONIN <^0.05 Normal <0.05 [facility] Comment on above: Order Comment: <0.50 ng/mL - Low risk of severe sepsis and/or septic shock. <2.00 ng/mL - Recommend retesting within 6-24 hours. >2.00 ng/mL - High risk of sepsis and/or septic shock. Performed By: #### P TERESA #### [facility] ([facility]) [address] [place] [address] VIR PROCALCITONIN <^0.05 Normal <0.05 [facility] Comment on above: Order Comment: <0.50 ng/mL - Low risk of severe sepsis and/or septic shock. <2.00 ng/mL - Recommend retesting within 6-24 hours. >2.00 ng/mL - High risk of sepsis and/or septic shock. Performed By: #### P TERESA #### [facility] ([facility]) [address] [place] [address] VIR URINALYSISon 04-20-2025 Bilirubin Ql (U) Negative Normal Negative [facility] Comment on above: Performed By: #### U A #### [facility] ([facility]) [address] [place] [address] VIR BLOOD/HGB Negative Normal Negative [facility] Comment on above: Performed By: #### U A #### [facility] ([facility]) [address] [place] [address] VIR Color (U) Yellow Normal Yellow, Colorless [facility] Comment on above: Performed By: #### U A #### [facility] ([facility]) [address] [place] [address] VIR Glucose Ql (U) Negative Normal Negative [facility] Comment on above: Performed By: #### U A #### [facility] ([facility]) [address] [place] [address] VIR Ketones Ql (U) Negative Normal Negative [facility] Comment on above: Performed By: #### U A #### [facility] ([facility]) [address] [place] [address] VIR Leukocyte esterase Test strip Ql (U) Small Abnormal Negative [facility] Comment on above: Performed By: #### U A #### [facility] ([facility]) [address] [place] [address] VIR MUCOUS Present Abnormal None [facility] Comment on above: Performed By: #### U A #### [facility] ([facility]) [address] [place] [address] VIR Nitrite Ql (U) Negative Normal Negative [facility] Comment on above: Performed By: #### U A #### [facility] ([facility]) [address] [place] [address] VIR PH,URINE 6.0 Normal 5.0-8.5 [facility] Comment on above: Performed By: #### U A #### [facility] ([facility]) [address] [place] [address] VIR Protein Ql (U) Negative Normal Negative [facility] Comment on above: Performed By: #### U A #### [facility] ([facility]) [address] [place] [address] VIR R.B.CELLS 1 Normal 0-5 [facility] Comment on above: Performed By: #### U A #### [facility] ([facility]) [address] [place] [address] VIR Specific gravity (U) [Rel density] 1.018 Normal 1.003-1.03 5 [facility] Comment on above: Performed By: #### U A #### [facility] ([facility]) [address] [place] [address] VIR SQUAMOUS EPITHELIUM <^1 Normal 0-5 [facility] Comment on above: Performed By: #### U A #### [facility] ([facility]) [address] [place] [address] VIR TURBIDITY Clear Normal Clear [facility] Comment on above: Performed By: #### U A #### [facility] ([facility]) [address] [place] [address] VIR UROBILINOGEN <1.1 eu/dL Normal <1.1 eu/dL [facility] Comment on above: Performed By: #### U A #### [facility] ([facility]) [address] [place] [address] VIR W.B.CELLS 42 High 0-5 [facility] Comment on above: Performed By: #### U A #### [facility] ([facility]) [address] [place] [address] VIR URINE CULTUREon 04-20-2025 Bacteria identified Cx Nom (U) CULTURE RESULTS NO GROWTH AT <1000 CFU/mL Normal [facility] Comment on above: Performed By: #### W CSUP #### [facility] ([facility]) [address] [place] [address] VIR VANCOMYCIN, RANDOMon 025 VANCOMYCIN 10.3 ug/mL Normal 5.0-40.0 [facility] Comment on above: Order Comment: Along with Rare Normal [facility] [place]. Performed By: #### W CSUP #### [facility] ([facility]) [address] [place] [address] VIR BLOOD CULTUREon 04-19-2025 Bacteria identified Cx Nom (Bld) No growth at 5 days Normal [facility] Comment on above: Order Comment: Prior to antibiotic administration Performed By: #### L [id number] #### [facility] ([facility]) [address] [place] [address] Performed By: #### L [id number] ####[facility] ([facility])[address] [place] [address] CBC WITH AUTO DIFFERENTIALon 04-19-2025 Basophils (Bld) [#/Vol] 0.05 10*3/uL Normal 0.00-0.20 [facility] Comment on above: Performed By: #### L [id number] ####[facility] [place] [address] Basophils/100 WBC (Bld) 1.1 % High 0.0-1.0 [facility] Comment on above: Performed By: #### L [id number] ####[facility] ([facility])[address] [place] [address] Eosinophils (Bld) [#/Vol] 0.17 10*3/uL Normal 0.00-0.50 [facility] Comment on above: Performed By: #### L [id number] ####[facility] ([facility])[address] [place] [address] Eosinophils/100 WBC (Bld) 3.9 % Normal 0.0-6.0 [facility] Comment on above: Performed By: #### L [id number] ####[facility] ([facility])[address] [place] [address] Erythrocyte distribution width (RBC) [Ratio] 15.2 % High 11.5-15.0 [facility] Comment on above: Performed By: #### L [id number] ####[facility] (BEAKER)[address] [place] [address] ERYTHROCYTE MEAN CORPUSCULAR HEMOGLOBIN CONCENTRATION (G/DL) BY AUTOMATED 33.5 g/dL Normal 32.0-35.0 [facility] Comment on above: Performed By: #### L [id number] ####[facility] (BEAKER)[address] [place] [address] Hematocrit (Bld) [Volume fraction] 34.0 % Low 39.0-50.0 [facility] Comment on above: Performed By: #### L [id number] ####[facility] (BEAKER)[address] [place] [address] Hemoglobin (Bld) [Mass/Vol] 11.4 g/dL Low 13.0-17.0 [facility] Comment on above: Performed By: #### L [id number] ####[facility] (BEAKER)[address] [place] [address] Immature granulocytes (Bld) [#/Vol] 0.01 10*3/uL Normal 0.00-0.20 [facility] Comment on above: Performed By: #### L [id number] ####[facility] ([facility] [place] [address] Immature granulocytes/100 WBC (Bld) 0.2 % Normal 0.0-1.0 [facility] Comment on above: Performed By: #### L [id number] ####[facility] ([facility])[address] [place] [address] Lymphocytes (Bld) [#/Vol] 0.69 10*3/uL Low 1.20-4.00 [facility] Comment on above: Performed By: #### L [id number] ####[facility] ([facility])[address] [place] [address] Lymphocytes/100 WBC (Bld) 15.7 % Low 20.0-45.0 [facility] Comment on above: Performed By: #### L [id number] ####[facility] ([facility])[address] [place] [address] MCH (RBC) [Entitic mass] 29.2 pg Normal 27.0-33.0 [facility] Comment on above: Performed By: #### L [id number] ####[facility] ([facility] [place] [address] MCV (RBC) [Entitic vol] 87.2 fL Normal 82.0-98.0 [facility] Comment on above: Performed By: #### L [id number] ####[facility] ([facility])[address] [place] [address] Monocytes (Bld) [#/Vol] 0.42 10*3/uL Normal 0.10-1.00 [facility] Comment on above: Performed By: #### L [id number] ####[facility] (BEAKER)[address] [place] [address] Monocytes/100 WBC (Bld) 9.5 % Normal 5.0-12.0 [facility] Comment on above: Performed By: #### L [id number] ####[facility] ([facility])[address] [place] [address] Neutrophils (Bld) [#/Vol] 3.06 10*3/uL Normal 1.60-7.60 [facility] Comment on above: Performed By: #### L [id number] ####[facility] ([facility])[address] [address] Neutrophils/100 WBC (Bld) 69.6 % Normal 40.0-72.0 [facility] Comment on above: Performed By: #### L [id number] ####[facility] ([facility])[address] [place] [address] NRBC (PER 100 WBCS) BY AUTOMATED COUNT 0.0 % Normal 0 [facility] Comment on above: Performed By: #### L [id number] ####[facility] ([facility])[address] [place] [address] PLATELETS (10*3/UL) IN BLOOD AUTOMATED COUNT 215 10*3/uL Normal 150-400 [facility] Comment on above: Performed By: #### L [id number] ####[facility] ([facility])[address] [address] RBC (Bld) [#/Vol] 3.90 10*6/uL Low 4.20-5.70 [facility] Comment on above: Performed By: #### L [id number] ####[facility] ([facility])[address] [address] WBC (Bld) [#/Vol] 4.40 10*3/uL Normal 4.00-10.60 [facility] Comment on above: Performed By: #### L [id number] ####[facility] ([facility])[address] [place] [address] COMPREHENSIVE METABOLIC PANE Taj 04-19-2025 Albumin [Mass/Vol] 3.5 g/dL Normal 3.5-5.7 [facility] Comment on above: Performed By: #### L [id number] #### [facility] (BEAKER) [address] [place] [address] ALP [Catalytic activity/Vol] 54 U/L Normal 34-104 [facility] Comment on above: Performed By: #### L [id number] #### [facility] ([facility]) [address] [place] [address] ALT [Catalytic activity/Vol] 16 U/L Normal 7-52 [facility] Comment on above: Performed By: #### L [id number] #### [facility] ([facility]) [address] [place] [address] Anion gap [Moles/Vol] 10 mmol/L Normal 7-20 [facility] Comment on above: Performed By: #### L [id number] #### [facility] ([facility]) [address] [place] [address] AST [Catalytic activity/Vol] 25 U/L Normal 13-39 [facility] Comment on above: Performed By: #### L [id number] #### [facility] ([facility]) [address] [place] [address] Bilirubin [Mass/Vol] 0.5 mg/dL Normal 0.3-1.0 [facility] Comment on above: Performed By: #### L [id number] #### [facility] ([facility]) [address] [place] [address] Calcium [Mass/Vol] 8.2 mg/dL Low 8.6-10.3 [facility] Comment on above: Performed By: #### L [id number] #### [facility] (BEAKER) [address] [place] [address] Chloride [Moles/Vol] 107 mmol/L Normal 98-107 [facility] Comment on above: Performed By: #### L [id number] #### [facility] (BEAKER) [address] [place] [address] CO2 [Moles/Vol] 26 mmol/L Normal 21-31 [facility] Comment on above: Performed By: #### L [id number] #### [facility] ([facility]) [address] [place] [address] Creatinine [Mass/Vol] 1.85 mg/dL High 0.70-1.30 [facility] Comment on above: Performed By: #### L [id number] #### [facility] ([facility]) [address] [place] [address] GLOMERULAR FILTRATION RATE ML/MIN/1.73 SQ M.PREDICTED 35.3 mL/min/1.73m*2 Low >60.0 [facility] Comment on above: Result Comment: [facility]???s estimated glomerular filtration rate (eGFR) will [...] individuals. Performed By: #### L [id number] #### [facility] ([facility]) [address] [place] [address] Glucose [Mass/Vol] 113 mg/dL High 70-100 [facility] Comment on above: Performed By: #### L [id number] #### [facility] ([facility]) [address] [place] [address] Potassium [Moles/Vol] 3.6 mmol/L Normal 3.5-5.1 [facility] Comment on above: Performed By: #### L [id number] #### [facility] ([facility]) [address] [place] [address] Protein [Mass/Vol] 5.7 g/dL Low 6.0-8.3 [facility] Comment on above: Performed By: #### L [id number] #### [facility] ([facility]) [address] [place] [address] Sodium [Moles/Vol] 139 mmol/L Normal 136-145 [facility] Comment on above: Performed By: #### L [id number] #### [facility] (BEAKER) [address] [place] [address] Urea nitrogen [Mass/Vol] 33 mg/dL High 7-25 [facility] Comment on above: Performed By: #### L [id number] #### [facility] (BEAKER) [address] [place] [address] UREA NITROGEN/CREATININE (MASS RATIO) IN SER/PLAS 17.8 Normal [facility] Comment on above: Performed By: #### L [id number] #### [facility] (BEAKER) [address] [place] [address] CONSULTon 04-19-2025 CONSULT ------- Attestation signed by Jimbo Bautista MD at 04/21/2025 12:45 AM By using the attestations below, the signing clinician agrees that I have read and verify that the documentation has been personally reviewed by me and ensure that the documentation accurately reflects the encounter. GC: I performed the álvarez portion(s) of the service and participated in the management and confirm the resident's documentation. Please note there may be an additional personal documentation from me. Gven the impending erosion, pt will benfit from CIED removal and lead;ess PPM implant. As our institue does not have dual leadless pacing system I have [facility] Gvyuriy proximity, they opted [facility] I have informed Dr Mccoy who will accept the pt. Cardiology Consult Note Reason for Consult: Pacemaker pocket site infection HPI: Juan Jose Austin is a 84 y.o. 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 Underwent pocket revision due to his pocket discharge on 01/21/[address] Bautista and in his follow-up on 02/02/2025 wound was cleaned and dressed and he was asymptomatic and was taking his antibiotics. Today he came to the ED due to pocket site purulent discharge since last night. He denies fever, chills, tenderness, chest pain, shortness of breath. Cardiology team consulted for evaluation and management. Cardiology ROS: Review of Systems Constitutional: Negative. Negative for chills and fever. Respiratory: Negative for chest tightness and shortness of breath. Cardiovascular: Negative for palpitations and leg swelling. Gastrointestinal: Negative for nausea. Skin: Positive for wound. Past Medical History He has a past medical history of Atrial flutter (CMS/HCC), Cancer (CMS/HCC), Chronic constipation, Chronic diarrhea, Chronic systolic heart failure (CMS/HCC), CKD (chronic kidney disease), stage III (CMS/HCC), Colon polyp, Hematuria, Hypertension, Irregular heart beat, LBBB (left bundle branch block), and Ulcerative colitis (CMS/HCC). Surgical History He has a past surgical history that includes Back surgery; Nephrectomy; Hernia repair; Polypectomy; Esophagogastroduodenoscopy; Cystoscopy; and Insert / replace / remove pacemaker. Social History He reports that he quit smoking about 45 years ago. His smoking use included cigarettes. He has never used smokeless tobacco. He reports that he does not currently use alcohol. He reports that he does not use drugs. Family History Family History[1] Allergies Adhesive and Desonide Medications Current Outpatient Medications Medication Instructions amLODIPine (NORVASC) 5 mg, oral, Daily aspirin 81 mg, oral, Once Daily atorvastatin (LIPITOR) 80 mg, oral, Every morning balsalazide (COLAZAL) 750 mg, oral, 3 times daily cranberry fruit (cranberry) 450 mg tablet 1 capsule, oral, Daily ferrous sulfate 65 mg, oral, Every other day furosemide (LASIX) 40 mg, oral, Every morning glucosamine/chondroitin weebr A/C (NKEIUIMJGJA-PKVWUXQMXJP-WC T C ORAL) 1 capsule, oral, Daily hydrALAZINE (Apresoline) 25 mg tablet TAKE ONE TABLET BY MOUTH THREE TIMES A DAY (MORNING, NOON AND BEDTIME) hyoscyamine (LEVSIN) 125 mcg, oral, Every 4 hours PRN isosorbide mononitrate ER (Imdur) 30 mg 24 hr tablet TAKE 1 TABLET BY MOUTH DAILY DIRECTED. DO NOT CRUSH OR CHEW Lactobacillus acidophilus 0.5 mg (100 million cell) tablet oral levothyroxine (Synthroid) 25 mcg tablet Every 24 hours liothyronine (CYTOMEL) 5 mcg, oral, Daily losartan (COZAAR) 50 mg, oral, 2 times daily magnesium oxide (MAG-OX) 400 mg, oral, Daily metoprolol succinate XL (Toprol-XL) 50 mg 24 hr tablet TAKE 1 TABLET BY MOUTH EVERY MORNING *DO NOT CRUSH OR CHEW* multivitamin tablet 1 tablet, oral, Daily omeprazole (PriLOSEC) [address] capsule Take 1 capsule twice a day by oral route for 90 days. ondansetron ODT (ZOFRAN-ODT) 4 mg, oral, 4 times daily PRN pantoprazole (ProtoNix) 40 mg EC tablet 1 tablet, oral, Nightly pembrolizumab (Keytruda) 25 mg/mL chemo injection intravenous, Once potassium chloride ER (Micro-K) 10 mEq ER capsule 10 mEq, oral, 2 times daily tamsulosin (FLOMAX) 0.4 mg, oral, Daily Prescriptions Prior to Admission[2] Last Recorded Vitals Patient Vitals for the past 24 hrs: BP Temp Pulse Resp SpO2 Height Weight 04/19/25 1209 119/62 -- 60 17 97 % -- -- 04/19/25 1140 121/62 -- 60 18 96 % -- -- 04/19/25 1109 122/58 -- 60 17 97 % -- -- 04/19/25 1039 117/57 -- 60 18 94 % -- -- 04/19/25 1000 129/76 36.2 ???C (97.2 ???F) 60 16 98 % 1.626 m (5' 4 ) 71.2 kg (157 lb) Physical Examination: Physical Exam Vitals reviewe (more content not included)... [facility] EDNURSon 04-19-2025 EDNURS Finance Insurance Manager contacted pt in regard to shoes that were left in dept. Pt aware and will see if daughter can greens picker for him. Belongings placed back in lockers. Mariella Henson RN 05/29/25 1412 [facility] EDNURS Mode of arrival (squ ad #, walk in, police, etc): Walk in Chief complaint(s): Pacemaker issue Arrival Note (brief scenario, treatment BELT BUILDER, etc): Finished antibiotics last week and then noticed drainage from the pacemaker area. The area is red and warm to the touch. Stated that it looks like it is pushing out of his skin. Has had the pacemaker for 2 years and recently had this problem a couple months ago. [facility] EDPROVon 04-19-2025 EDPROV History of Present I llness Chief Complaint Patient presents with ??? Pacemaker Problem Initial evaluation done by Dr. Lalo Malin at 10:13 AM. The pt is an 84 y/o male presenting to the ED for the chief complaint of a pacemaker problem. The pt states that he had a pacemaker placed about two years ago and lately it has been leaking fluid and looks infected. He denies any fever. History provided by: Patient [place] Coma Scale Score: 15 History Medical History[1] Surgical History[2] Family History[3] Social History[4] Review of Systems Review of Systems Constitutional: Negative for fever. Physical Exam ED Triage Vitals [04/19/25 1000] Temp Heart Rate Resp BP 36.2 ???C (97.2 ???F) 60 16 129/76 SpO2 Temp src Heart Rate Source Patient Position 98 % -- -- -- BP Location FiO2 (%) -- -- Physical Exam Vitals and nursing note reviewed. Constitutional: General: He is not in acute distress. Appearance: He is well-developed. HENT: Head: Normocephalic and atraumatic. Eyes: Conjunctiva/sclera: Conjunctivae normal. Cardiovascular: Rate and Rhythm: Normal rate and regular rhythm. Heart sounds: No murmur heard. Pulmonary: Effort: Pulmonary effort is normal. No respiratory distress. Breath sounds: Normal breath sounds. Abdominal: Palpations: Abdomen is soft. Tenderness: There is no abdominal tenderness. Musculoskeletal: General: No swelling. Cervical back: Neck supple. Comments: Erythematous around pacemaker with thin skin leaking clear fluid. Skin: General: Skin is warm and dry. Capillary Refill: Capillary refill takes less than 2 seconds. Neurological: Mental Status: He is alert. Psychiatric: Mood and Affect: Mood normal. Procedures ED Course & MDM Diagnoses as of 04/21/25 1617 Disorder of cardiac pacemaker system, initial encounter Medical Decision Making I, Ryder nguyen, documented on behalf of Dr. Aden Malin DO. Chief complaint: Pacemaker Problem Differential Diagnosis includes but is not limited to: Cellulitis, pacemaker infection. Plan of Care: I spoke with electrophysiology here they came and evaluated patient felt he needed a leadless pacemaker which they are not able to do at [facility] today he spoke with Dr. Car over at [facility] who agreed to do it today. On re-evaluation, patient is resting comfortably. Results were discussed. Based on the diagnostic results and physical exam, pt will be [facility] and they agreed to accept the patient over there before they will place the pacemaker.transfered [facility] his troponin was I was a little elevated when you get all the regular troponins were slightly elevated in the past as well so I feel this is more chronic I do not see any evidence of ischemia presently his pacemaker is working all the Attestation: Provider Statement MERLE: Provider Statement 2nd Scribe. By electronically signing this emergency patient record, the Emergency Physician/WAREHOUSE DIRECTOR/PA-C attests that all entries made into the electronic medical record by the scribe prior to the Physician/WAREHOUSE DIRECTOR/PA-C signature reflect an accurate accounting of the evaluation and care rendered by that Emergency Physician/WAREHOUSE DIRECTOR/PA-C. The Emergency Physician/WAREHOUSE DIRECTOR/PA-C assumes full responsibility for those entries. The Emergency Physician/WAREHOUSE DIRECTOR/PA-C also attests that any patient testing or treatment that was instituted by nursing staff. Aden Malin DO 04/21/25 1527 [1] Past Medical History: Diagnosis Date ??? Atrial flutter (CMS/HCC) ??? Cancer (CMS/HCC) KIDNEY CANCER AND BLADDER CANCER ??? Chronic constipation ??? Chronic diarrhea ??? Chronic systolic heart failure (CMS/HCC) ??? CKD (chronic kidney disease), stage III (CMS/HCC) ??? Colon polyp ??? Hematuria ??? Hypertension ??? Irregular heart beat PM ??? LBBB (left bundle branch block) ??? Ulcerative colitis (CMS/HCC) [2] Past Surgical History: Procedure Laterality Date ??? BACK SURGERY ??? CYSTOSCOPY ??? ESOPHAGOGASTRODUODENOSCOPY ??? HERNIA REPAIR ??? INSERT / REPLACE / REMOVE PACEMAKER ??? NEPHRECTOMY ??? POLYPECTOMY [3] Family History Problem Relation Name Age of Onset ??? Heart failure Mother ??? Lung cancer Father [4] Social History Tobacco Use ??? Smoking status: Former Current packs/day: 0.00 Types: Cigarettes Quit date: 1979 Years since quittin.5 ??? Smokeless tobacco: Never Vaping Use ??? Vaping status: Never Used Substance Use Topics ??? Alcohol use: Not Currently ??? Drug use: Never Normal [facility] HIGH SENSITIVITY TROPONIN Io n 04-19-2025 HS TROPONIN I (NG/L) 71 ng/L Critically high <20 [facility] Comment on above: Performed By: #### L [id number] #### [facility] (BEAKER) [address] [place] [address] LACTIC ACID WITH 4 HOUR REFL EXon 04-19-2025 LACTATE (MMOL/L) IN SER/PLAS 0.9 mmol/L Normal 0.5-2.2 [facility] Comment on above: Performed By: #### L [id number] #### [facility] (BEAKER) [address] [place] [address] SUPERFICIAL WOUND CULTUREon 04-19-2025 SUPERFICIAL WOUND CULTURE CULTURE RESULTS STAPHYLOCOCCUS AUREUS Few Staphylococcus aureus GRAM STAIN >25 White Blood Cells/LPF 0 to 1 Squamous Epithelial Cells/LPF Rare Gram positive cocci in pairs [ S = SUSCEPTIBLE R = RESISTANT I = INTERMEDIATE S-DO = Susceptible-dose dependent NS = Non-suscceptible NO = No Interpretation ] Organism: STAPHYLOCOCCUS AUREUS Antibiotic Interpretation ADONAY Status Clindamycin R 0.25 F Inducible resistance to Clindamycin detected Doxycycline S <=^0.5 F Oxacillin S <=^0.25 F Trimethoprim + Sulfamethoxazole S <=^0.5 F Vancomycin S <=^0.5 F Cefazolin S F Susceptibility Comment F Normal [facility] Comment on above: Order Comment: Along with Rare Normal [facility] [place]. Performed By: #### W CSUP #### [facility] (TT) [address] [place] [address] VIR XR CHEST 2 VWSon 04-19-2025 XR CHEST 2 VWS XR CHEST 2 VWS Chest 2 views History: chest wall tenderness Comparison: 03/26/2023 Findings: Chest 2 views. Stable cardiac mediastinal silhouette. 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 Degenerative change of the thoracolumbar spine. Impression: No evident acute cardiopulmonary process. Finalized by Lio Licea MD on 04/19/2025 5:19 PM Normal [facility] Office Visiton 02-23-2025 Follow-up visit [id number] Juan Jose Austin 1940 M Date Provider Department Center 02/23/2025 JIMBO ROBERTSON Family History Problem Relation Age of Onset Heart failure Mother Lung cancer Father Family Status - Relation Status Age at Mother Father Level of Service:19791 [place] OFFICE/OUTPATIENT ESTABLISHED LOW MDM 20 MIN Normal [facility] Office Visiton 02-17-2025 Follow-up visit [id number] Juan Jose Austin 1940 M Date Provider Department Center 02/17/2025 JESSICA ALEJANDRO Family History Problem Relation Age of Onset Heart failure Mother Lung cancer Father Family Status - Relation Status Age at Mother Father Level of Service:32808 [place] OFFICE/OUTPATIENT ESTABLISHED LOW MDM 20 MIN Normal [facility] Office Visiton 02-02-2025 Follow-up visit [id number] Juan Jose Austin 1940 M Date Provider Department Center 02/02/2025 JIMBO ROBERTSON [facility] Family History Problem Relation Age of Onset Heart failure Mother Lung cancer Father Family Status - Relation Status Age at Mother Father Level of Service:09186 [place] OFFICE/OUTPATIENT ESTABLISHED LOW MDM 20 MIN Normal [facility] TISSUE CULTUREon 01-22-2025 Bacteria identified Cx Nom (Unsp spec) STAPHYLOCOCCUS AUREUS Abnormal [facility] Comment on above: Result Comment: Rare Growth Staphylococcus aureus For Susceptibility Results Please Refer to Performed By: #### L [id number] #### [facility] ([facility]) [address] [place] [address] GRAM STAIN RESULT Normal [facility] Comment on above: Result Comment: Rare Polymorphonuclear leukocytes No organisms seen Performed By: #### L [id number] #### [facility] ([facility]) [address] [place] [address] WOUND CULTUREon 01-22-2025 Clindamycin [Susc] <=0.5 Resistant [facility] Comment on above: Performed By: #### L [id number] #### [facility] ([facility]) [address] [place] [address] Oxacillin [Susc] <=0.25 Susceptible [facility] Comment on above: Performed By: #### L [id number] #### [facility] ([facility]) [address] [place] [place] [address] Tetracycline [Susc] <=0.5 Susceptible [facility] Comment on above: Performed By: #### L [id number] #### [facility] ([facility]) [address] [place] [place] [address] Trimethoprim+Sulfame thoxazole [Susc] <=0.5/9.5 Susceptible [facility] Comment on above: Performed By: #### L [id number] #### [facility] ([facility]) [address] [place] [address] Vancomycin [Susc] 2 ug/ml Susceptible [facility] Comment on above: Performed By: #### L [id number] #### [facility] (BEAKER) [address] [place] [address] HPon 01-21-2025 [facility] Electrophysiology Consult Note Reason for visit: S/P PPM hospital follow up 01/19/25 Juan Jose has had a device check last done in 2023 which revealed normal device function and no A-fib. Since the last time he saw me in August 2023 he has been followed by cardiology service. There was a concern about discharge from the pocket. This has been ongoing and had been treated with antibiotics by his PCP and then seen by Dr SALDAÑA in January 08, 2025. He states that the buckle of his suspenders has been rubbing against the pacemaker site. Initially he noticed a wart like structure and then started noticing purulent material. He was seen in the ED in September and at that time did not note anything significant but since has been progressively worse. There is no fever but I could express some purulent/caseous material. Denies fever, chills slight tenderness at times per patient. No cardiac complaints. Prior HPI: Juan Jose Austin is a 84 y.o. year old with past medical history [...] 03/19/2023 shows concerns for amyloidosis, LVEF 48% --- 03/05/23 ED report Previous HPI per Dr [...] remote infarction. Diaphragmatic attenuation artifact is not c (more content not included)... Normal [facility] NURSNOTEon 01-21-2025 NURSNOTE RN educated pt on d/ c instructions. This included: site care, limited physical activity, resume normal diet, future appointments, medications, and moderate sedation instructions. RN educated pt on when to notify physician and when to go to the hospital. RN provided pt with arm sling and educated pt on importance of not lifting arm above 90 degrees, weight bearing more than 5lbs, and driving for the next 4 weeks. RN encouraged pt to voice any questions or concerns, and answered any questions or concerns if pt verbalized. Pt was wheeled off of unit with all of belongings. Normal [facility] NURSNOTE CHG wipes and betadi ne nasal swabs completed. Normal [facility] Basic Metabolic Panelon 04-0 Anion gap [Moles/Vol] 9 mmol/L 9 - 16 mmol/L [facility] Calcium [Mass/Vol] 8.9 mg/dL 8.6 - 10. 4 mg/dL [facility] Chloride [Moles/Vol] 106 mmol/L 98 - 10 7 mmol/L [facility] CO2 [Moles/Vol] 26 mmol/L 20 - 31 mmol/L [facility] Creatinine [Mass/Vol] 2.0 mg/dL High 0.70 - 1.20 mg/dL [facility] Est, Glom Filt Rate 33 Low - PINF [facility] [employer] Comment on above: These results are not intended for use in patients <18 years of age. eGFR results are calculated without a race factor using the 2020 CKD-EPI equation. Careful clinical correlation is recommended, particularly when comparing to results calculated using previous equations. The CKD-EPI equation is less accurate in patients with extremes of muscle mass, extra-renal metabolism of creatine, excessive creatine ingestion, or following therapy that affects renal tubular secretion. Glucose [Mass/Vol] 88 mg/dL 74 - 99 mg/dL [facility] Interpretation and review of laboratory results Abnormal [facility] Potassium [Moles/Vol] 4.5 mmol/L 3.7 - 5.3 mmol/L [facility] Sodium [Moles/Vol] 141 mmol/L 136 - 145 mmol/L [facility] Urea nitrogen [Mass/Vol] 31 mg/dL High 8 - 23 mg/dL [facility] Urea nitrogen/Creatinine [Mass ratio] 16 mg/mg 9 - [address] [facility] Basic Metabolic Profon 01-20 Anion gap [Moles/Vol] 9 mmol/L Normal 9-16 [facility] Comment on above: Performed By: #### C DP, BMP #### [facility] [address] [place] [address] Bread Supervisor: Augusto Sidhu MD BUN/CRE Ratio 16 Normal -20 [facility] Comment on above: Performed By: #### C DP, BMP #### [facility] [address] [place] [address] Bread Supervisor: Augusto Sidhu MD Calcium [Mass/Vol] 8.9 mg/dL Normal 8.6-10.4 [facility] Comment on above: Performed By: #### C DP, BMP #### [facility] [address] [place] [address] Bread Supervisor: Augusto Sidhu MD Chloride [Moles/Vol] 106 mmol/L Normal 98-107 [facility] Comment on above: Performed By: #### C DP, BMP #### [facility] [address] [place] [address] Bread Supervisor: Augusto Sidhu MD CO2 [Moles/Vol] 26 mmol/L Normal 20-31 [facility] Comment on above: Performed By: #### C DP, BMP #### [facility] [address] [place], [place] [id number] Bread Supervisor: Augusto Sidhu MD Creatinine [Mass/Vol] 2.0 mg/dL High 0.70-1.20 [facility] Comment on above: Performed By: #### C DP, BMP #### [facility] [address] [place] [address] Bread Supervisor: Augusto Sidhu MD GFR/1.73 sq M.predicted among non-blacks MDRD (S/P/Bld) [Vol rate/Area] 33 mL/min/{1.73_m2} Low >60 [facility] Comment on above: Result Comment: These results are not intended for use in patients <18 years of age. eGFR results are calculated without a race factor using the 2020 CKD-EPI equation. Careful clinical correlation is recommended, particularly when comparing to results calculated using previous equations. The CKD-EPI equation is less accurate in patients with extremes of muscle mass, extra-renal metabolism of creatine, excessive creatine ingestion, or following therapy that affects renal tubular secretion. Performed By: #### C DP, BMP #### [facility] [address] [place] [address] Bread Supervisor: Augusto Sidhu MD Glucose [Mass/Vol] 88 mg/dL Normal 74-99 [facility] Comment on above: Performed By: #### C DP, BMP #### [facility] [address] [place] [address] Bread Supervisor: Augusto Sidhu MD Potassium [Moles/Vol] 4.5 mmol/L Normal 3.7-5.3 [facility] Comment on above: Performed By: #### C DP, BMP #### [facility] [address] [place] [address] Bread Supervisor: Augusto Sidhu MD Sodium [Moles/Vol] 141 mmol/L Normal 136-145 [facility] Comment on above: Performed By: #### C DP, BMP #### [facility] [address] [place], [place] [id number] Bread Supervisor: Augusto Sidhu MD Urea nitrogen [Mass/Vol] 31 mg/dL High 8-23 [facility] Comment on above: Performed By: #### C DP, BMP #### [facility] [address] [place] [address] Bread Supervisor: Augusto Sidhu MD CBC with Auto Differentialon 01-20-2025 Basophils (Bld) [#/Vol] 0.09 10*3/uL [facility] Basophils/100 WBC (Bld) 1 % 0 - 2 % [facility] Eosinophils (Bld) [#/Vol] 0.14 10*3/uL [facility] Eosinophils/100 WBC (Bld) 2 % 1 - 4 % [facility] Erythrocyte distribution width (RBC) [Ratio] 14.8 % High 11.8 - 14.4 % [facility] Hematocrit (Bld) [Volume fraction] 36.3 % Low 40.7 - 50.3 % [facility] Hemoglobin (Bld) [Mass/Vol] 11.6 g/dL Low 13.0 - 17.0 g/dL [facility] Immature granulocytes (Bld) [#/Vol] 0.03 10*3/uL [facility] Immature granulocytes/100 WBC (Bld) 0 % 0 [facility] Interpretation and review of laboratory results Abnormal [facility] Lymphocytes/100 WBC (Bld) 9 % Low 24 - 43 % [facility] Lymphocytes/100 WBC (Bld) 0.75 % Low [facility] MCH (RBC) [Entitic mass] 27.7 pg 25.2 - 33.5 pg [facility] MCHC (RBC) [Mass/Vol] 32 g/dL 28.4 - 34.8 g/dL [facility] MCV (RBC) [Entitic vol] 86.6 fL 82.6 - 102.9 fL [facility] Monocytes/100 WBC (Bld) 6 % 3 - 12 % [facility] Monocytes/100 WBC (Bld) 0.47 % [facility] Neutrophils/100 WBC (Bld) 82 % High 36 - 65 % [facility] Nucleated RBC/100 WBC (Bld) [Ratio] 0 % 0.0 per 100 WBC [facility] Platelet mean volume (Bld) [Entitic vol] 9.3 fL 8.1 - 13.5 fL [facility] Platelets (Bld) [#/Vol] 251 10*3/uL [facility] RBC (Bld) [#/Vol] 4.19 10*6/uL Low 4.21 - 5.77 m/uL [facility] Segmented neutrophils/100 WBC (Bld) 6.64 % [facility] WBC other (Bld) [#/Vol] 8.[address] [facility] CBC with Diffon 01-20-2025 Abs. Basophil 0.09 k/uL Normal 0.00-0.20 [facility] Comment on above: Performed By: #### C DP, BMP #### [facility] [address] [place], [place] [id number] Bread Supervisor: Augusto Sidhu MD Abs.Imm.Granulocyte 0.03 k/uL Normal 0.00-0.30 [facility] Comment on above: Performed By: #### C DP, BMP #### [facility] [address] [place], [place] [id number] Bread Supervisor: Augusto Sidhu MD Abs.Neutrophil (Seg) 6.64 k/uL Normal 1.50-8.10 [facility] Comment on above: Performed By: #### C DP, BMP #### [facility] [address] [place] [address] Bread Supervisor: Augusto Sidhu MD Basophils/100 WBC (Bld) 1 % Normal 0-2 [facility] Comment on above: Performed By: #### C DP, BMP #### [address] [place], [place] [address] Bread Supervisor: Augusto Sidhu MD Eosinophils (Bld) [#/Vol] 0.14 10*3/uL Normal 0.00-0.44 [facility] Comment on above: Performed By: #### C DP, BMP #### [address] [place], [place] [id number] Bread Supervisor: Augusto Sidhu MD Eosinophils/100 WBC (Bld) 2 % Normal 1-4 [facility] Comment on above: Performed By: #### C DP, BMP #### [address] [place], [place] [address] Bread Supervisor: Augusto Sidhu MD Erythrocyte distribution width (RBC) [Ratio] 14.8 % High 11.8-14.4 [facility] Comment on above: Performed By: #### C DP, BMP #### [address] [place], [place] [address]83 Bread Supervisor: Augusto Sidhu MD Hematocrit (Bld) [Volume fraction] 36.3 % Low 40.7-50.3 [facility] Comment on above: Performed By: #### C DP, BMP #### [address] [place], [place] [id number] Bread Supervisor: Augusto Sidhu MD Hemoglobin (Bld) [Mass/Vol] 11.6 g/dL Low 13.0-17.0 [facility] Comment on above: Performed By: #### C DP, BMP #### [address] [place] [address] Bread Supervisor: Augusto Sidhu MD Immature granulocytes/100 WBC (Bld) 0 % Normal 0 [facility] Comment on above: Performed By: #### C DP, BMP #### [facility] [address] [place], [facility] Bread Supervisor: Augusto Sidhu MD Lymphocytes (Bld) [#/Vol] 0.75 10*3/uL Low 1.10-3.70 [facility] Comment on above: Performed By: #### C DP, BMP #### [facility] [address] [place], [facility]83 Bread Supervisor: Augusto Sidhu MD Lymphocytes/100 WBC (Bld) 9 % Low 24-43 [facility] Comment on above: Performed By: #### C DP, BMP #### [facility] [address] [place] [id number] Bread Supervisor: Augusto Sidhu MD MCH (RBC) [Entitic mass] 27.7 pg Normal 25.2-33.5 [facility] Comment on above: Performed By: #### C DP, BMP #### [address] [place], [facility]83 Bread Supervisor: Augusto Sidhu MD MCHC (RBC) [Mass/Vol] 32.0 g/dL Normal 28.4-34.8 [facility] Comment on above: Performed By: #### C DP, BMP #### [address] [place], [place] [address] Bread Supervisor: Augusto Sidhu MD MCV (RBC) [Entitic vol] 86.6 fL Normal 82.6-102.9 [facility] Comment on above: Performed By: #### C DP, BMP #### [address] [place] [address] Bread Supervisor: Augusto Sidhu MD Monocytes (Bld) [#/Vol] 0.47 10*3/uL Normal 0.10-1.20 [facility] Comment on above: Performed By: #### C DP, BMP #### [facility] [address] [place], [place] [id number] Bread Supervisor: Augusto Sidhu MD Monocytes/100 WBC (Bld) 6 % Normal 3-12 [facility] Comment on above: Performed By: #### C DP, BMP #### [facility] [address] [place], [place] [id number] Bread Supervisor: Augusto Sidhu MD Neutrophil (Seg) 82 % High 36-65 [facility] Comment on above: Performed By: #### C DP, BMP #### [facility] [address] [place], [place] 1754383 Bread Supervisor: Augusto Sidhu MD NRBC Automated 0.0 per 100 WBC Normal 0.0 [facility] Comment on above: Performed By: #### C DP, BMP #### [facility] [address] [place] [address] [place], [place] [address]68483 Bread Supervisor: Augusto Sidhu MD Platelet mean volume (Bld) [Entitic vol] 9.3 fL Normal 8.1-13.5 [facility] Comment on above: Performed By: #### C DP, BMP #### [address] [place], [place] [address]268[address] Bread Supervisor: Augusto iSdhu MD Platelets (Bld) [#/Vol] 251 10*3/uL Normal 138-453 [facility] Comment on above: Performed By: #### C DP, BMP #### [facility] [address] [place] [address] Dr[place], [place] [id number] Bread Supervisor: Augusto Sidhu MD RBC (Bld) [#/Vol] 4.19 10*6/uL Low 4.21-5.77 [facility] Comment on above: Performed By: #### C DP, BMP #### [facility] [address] [place] [address] Bread Supervisor: Augusto Sidhu MD WBC (Bld) [#/Vol] 8.1 10*3/uL Normal 3.5-11.3 [facility] Comment on above: Performed By: #### C DP, BMP #### [facility] [address] [place] [address] Bread Supervisor: Augusto Sidhu MD Office Visiton 01-19-2025 Follow-up visit [id number] Juan Jose Austin 1940 M Date Provider Department Center 01/19/2025 JIMBO ROBERTSON [facility] Family History Problem Relation Age of Onset Heart failure Mother Lung cancer Father Family Status - Relation Status Age at Mother Father Level of Service:68135 [place] OFFICE/OUTPATIENT ESTABLISHED LOW MDM 20 MIN Normal [facility] Orders Onlyon 01-19-2025 Orders Only [id number] Juan Jose [place] 1940 M Date Provider Department Center 01/19/2025 ROMEL LANDEROS [facility] Family History Problem Relation Age of Onset Heart failure Mother Lung cancer Father Family Status - Relation Status Age at Mother Father Normal [facility] Office Visiton 01-08-2025 Follow-up visit [id number] Juan Jose Austin 1940 M Date Provider Department Center 01/08/2025 CASEY PULIDO [facility] Family History Problem Relation Age of Onset Heart failure Mother Lung cancer Father Family Status - Relation Status Age at Mother Father Level of Service:53431 [place] OFFICE/OUTPATIENT ESTABLISHED MOD MDM 30 MIN Normal [facility] Cult,Woundon 01-07-2025 Cult,Wound Specimen Description .ABSCESS .CHEST SWAB Direct Exam NO NEUTROPHILS SEEN FEW GRAM POSITIVE COCCI IN PAIRS Culture STAPHYLOCOCCUS AUREUS MODERATE GROWTH This isolate is methicillin susceptible. Report Status FINAL 01/07/2025 SUSCEPTIBILITY Organism SAUR MSSA Method ADONAY Clindamycin <=0.25 RESISTANT Erythromycin >=8 RESISTANT Gentamicin <=0.5 SUSCEPTIBLE Gentamicin is used only in combination with other active agents that test susceptible. Induced Clind Resist POSITIVE Inducible Resistance to Clindamycin is present. Organism should be considered resistant to Clindamycin despite ADONAY. Levofloxacin 0.25 SUSCEPTIBLE Oxacillin <=0.25 SUSCEPTIBLE This staph isolate may be susceptible to Penicillin. Please contact Microbiology for confirmatory testing of susceptibility if Pencillin is a therapeutic consideration. Tetracycline <=1 SUSCEPTIBLE Trimethoprim/Sulfa <=10 SUSCEPTIBLE Susceptible [facility] Comment on above: Performed By: #### W AR ####[facility] [place] [address] lab Director: Hung Nguyen MD CNOVSPon 10-23-2024 CNOVSP Visit (SP) Office ([facility]) JUAN JOSE AUSTIN ([id number]) 1940 M Date Time Provider Department 10/23/24 9:40 AM CAESAR VAZQUEZ During your visit today, we recorded the following information about you: Temperature Pulse Respiration Blood pressure 97.7 degrees 63/minute 18/minute 157/76 Weight 76.7 kg Jessica Cervantes 10/23/2024 9:[address] CAP scans in 6 months Labs same day RTC 1 week after to review Caesar Vazquez MD 10/23/2024 1:11 PM Signed NAME: Juan Jose Austin CLINIC NO.: [id number] DATE OF SERVICE: October 23, 2024 (George) Some elements in this clinic note that are critical to medical decision making have been carefully reviewed and included from a prior clinic note dated: August 21, 2024 (George) Referring Provider: Dr. Galen Bhatt Additional Clinicians involved in Juan Jose Austin's care: Dr. Yoan Sneed (PCP), Dr. Galen Bhatt, Dr. Jian Rodriguez DIAGNOSIS: Upper urothelial tract carcinoma ASSESSMENT: 84 year old male with right solitary kidney [...] unrevealing. No evidence of pneumonitis on imaging. Recovering from IO induced diarrhea and continues on steroids for now. PLAN: CT CAP scans in 6 months Labs same day RTC 1 week after to review - HPI: CASE HISTORY: Reverse Chronological Order 10/16/2024 - CT CAP: Chest: Stable subcentimeter pulmonary nodules. Stable top normal-sized right hilar lymph node. Stable nonspecific sclerotic foci in the left lateral sixth and seventh ribs. A/P: Stable examination when compared to the prior study from 06/29/2024. No definite evidence of metastatic disease in the abdomen or pelvis. 07/10/2024 - EGD/Colonoscopy: with Dr. Jacob Tapia at [facility] Diverticulitis A. Duodenum, biopsy: - Duodenal mucosa with no significant histologic abnormality. B. Random colon, biopsy: - Quiescent colitis. - No evidence of activity, dysplasia or microscopic colitis. 06/29/2024 - CT CAP: Chest: Mild soft tissue prominence at the right hilum, stable. Correlation with continued follow-up examinations is recommended. Improved appearance to previously described right upper lobe groundglass opacities, as above. Additional bilateral subcentimeter pulmonary nodules, unchanged. Small sclerotic foci involving the lateral aspects of the left 6th and 7th ribs, unchanged. A/P: Stable CT examination the abdomen and pelvis as above. 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 Low-attenuation lesion in the posterior spleen which may represent small hemangioma. Evaluation is limited due to lack of IV contrast. Contrast excretion in the collecting system of the right kidney and activation in the urinary bladder from prior contrast administration. Lower thoracic and lumbar spondylosis with vascular calcification seen and no acute abdominal or pelvic pathology. No definite evidence of distended bowel or transition zone to suggest obstruction. 03/22/2024-04/12/2024 - Admitted at [facility] for non-ST elevated myoc (more content not included)... Normal [facility] 10-21-2024 ALT [Catalytic activity/Vol] 19 U/L 10 - 50 U/L [facility] ALT [Catalytic activity/Vol] 19 U/L Normal 10-[address] [place] [address] Comment on above: Performed By: #### A LT BMP, AST #### [facility] [address] [place] [address] Bread Supervisor: MD Kalyani Olivas 10-21-2024 AST [Catalytic activity/Vol] 28 U/L 10 - 50 U/L [facility] AST [Catalytic activity/Vol] 28 U/L Normal 10-50 [facility] Comment on above: Performed By: #### A MORALES RODGERS, AST #### [facility] [address] [place] [address] Bread Supervisor: Augusto Sidhu MD Basic Metabolic Panelon Anion gap [Moles/Vol] 10 mmol/L 9 - 16 mmol/L [facility] Calcium [Mass/Vol] 9.3 mg/dL 8.6 - 10. 4 mg/dL [facility] Chloride [Moles/Vol] 109 mmol/L High 98 - 10 7 mmol/L [facility] CO2 [Moles/Vol] 27 mmol/L 20 - 31 mmol/L [facility] Creatinine [Mass/Vol] 1.7 mg/dL High 0.70 - 1.20 mg/dL [facility] Est, Glom Filt Rate 40 Low - PINF [facility] Comment on above: These results are not intended for use in patients <18 years of age. eGFR results are calculated without a race factor using the 2020 CKD-EPI equation. Careful clinical correlation is recommended, particularly when comparing to results calculated using previous equations. The CKD-EPI equation is less accurate in patients with extremes of muscle mass, extra-renal metabolism of creatine, excessive creatine ingestion, or following therapy that affects renal tubular secretion. Glucose [Mass/Vol] 101 mg/dL High 74 - 99 mg/dL [facility] Interpretation and review of laboratory results Abnormal [facility] Potassium [Moles/Vol] 4.5 mmol/L 3.7 - 5.3 mmol/L [facility] Sodium [Moles/Vol] 146 mmol/L High 136 - 145 mmol/L [facility] Urea nitrogen [Mass/Vol] 35 mg/dL High 8 - 23 mg/dL [facility] Urea nitrogen/Creatinine [Mass ratio] 21 mg/mg High 9 - 20 [facility] Basic Metabolic Profon 10-21 Anion gap [Moles/Vol] 10 mmol/L Normal -16 [facility] Comment on above: Performed By: #### A LT, BMP, AST #### [facility] [address] [place] [address] Bread Supervisor: Augusto Sidhu MD BUN/CRE Ratio 21 High 9-20 [facility] Comment on above: Performed By: #### A LT, BMP, AST #### [facility] [address] [place], [place] [address]36[address] Bread Supervisor: Augusto Sidhu MD Calcium [Mass/Vol] 9.3 mg/dL Normal 8.6-10.4 [facility] Comment on above: Performed By: #### A LT, BMP, AST #### [facility] [address] [place], [place] [address] Bread Supervisor: Augusto Siduh MD Chloride [Moles/Vol] 109 mmol/L High 98-107 [facility] Comment on above: Performed By: #### A LT BMP, AST #### [facility] [address] [place], [place] [address] Bread Supervisor: Augusto Sidhu MD CO2 [Moles/Vol] 27 mmol/L Normal 20-31 [facility] Comment on above: Performed By: #### A LT BMP, AST #### [facility] [address] [place] [address] Bread Supervisor: Augusto Sidhu MD Creatinine [Mass/Vol] 1.7 mg/dL High 0.70-1.20 [facility] Comment on above: Performed By: #### A LT BMP, AST #### [facility] [address] [place], [place] 30[address] Bread Supervisor: Augusto Sidhu MD GFR/1.73 sq M.predicted among non-blacks MDRD (S/P/Bld) [Vol rate/Area] 40 mL/min/{1.73_m2} Low >60 [facility] Comment on above: Result Comment: These results are not intended for use in patients <18 years of age. eGFR results are calculated without a race factor using the 2020 CKD-EPI equation. Careful clinical correlation is recommended, particularly when comparing to results calculated using previous equations. The CKD-EPI equation is less accurate in patients with extremes of muscle mass, extra-renal metabolism of creatine, excessive creatine ingestion, or following therapy that affects renal tubular secretion. Performed By: #### A LT BMP, AST #### [facility] [address] [place] [address] Bread Supervisor: Augusto Sidhu MD Glucose [Mass/Vol] 101 mg/dL High 74-99 [facility] Comment on above: Performed By: #### A LT BMP, AST #### [facility] [address] [place] [address] Bread Supervisor: Augusto Sidhu MD Potassium [Moles/Vol] 4.5 mmol/L Normal 3.7-5.3 [facility] Comment on above: Performed By: #### A LT BMP, AST #### [facility] [address] [place] [address] Bread Supervisor: Augusto Sidhu MD Sodium [Moles/Vol] 146 mmol/L High 136-145 [facility] Comment on above: Performed By: #### A MORALES RODGERS, AST #### [facility] [address] [place] [address] Bread Supervisor: Augusto Sidhu MD Urea nitrogen [Mass/Vol] 35 mg/dL High 8-23 [facility] Comment on above: Performed By: #### A MORALES RODGERS, AST #### [facility] [address] [place] [address] [place] [address] Bread Supervisor: Augusto Sidhu MD Lipid Panelon 10-21-2024 Cholesterol [Mass/Vol] 134 mg/dL 0 - 199 mg/dL [facility] Comment on above: Cholesterol Guidelines: <200 Desirable 200-240 Borderline >240 Undesirable Cholesterol in HDL [Mass/Vol] 51 mg/dL 40 - PINF mg/dL [facility] Comment on above: HDL Guidelines: <40 Undesirable 40-59 Borderline >59 Desirable Cholesterol in LDL [Mass/Vol] 65 mg/dL 0 - 100 mg/dL [facility] Comment on above: LDL Guidelines: <100 Desirable 100-129 Near to/above Desirable 130-159 Borderline >159 Undesirable Direct (measured) LDL and calculated LDL are not interchangeable tests. Cholesterol in VLDL [Mass/Vol] 18 mg/dL 1 - 30 mg/dL [facility] Cholesterol.total/Ch olesterol in HDL [Mass ratio] 2.6 {ratio} [facility] [facility] Triglyceride [Mass/Vol] 92 mg/dL NINF - 150 mg/dL [facility] Comment on above: Triglyceride Guidelines: <150 Desirable 150-199 Borderline 200-499 High >499 Very high Based on AHA Guidelines for fasting triglyceride, July 2012. [facility] Lipid Profileon 10-21-2024 Cholesterol [Mass/Vol] 134 mg/dL Normal 0-199 [facility] Comment on above: Result Comment: Cholesterol Guidelines: <200 Desirable 200-240 Borderline >240 Undesirable Performed By: #### L IPR ####[employer] [place] [address] Lab Director: Hung Nguyen MD Cholesterol in HDL [Mass/Vol] 51 mg/dL Normal >40 [facility] Comment on above: Result Comment: HDL Guidelines: <40 Undesirable 40-59 Borderline >59 Desirable Performed By: #### L IPR ####[employer] [place] [address] Lab Director: Hung Nguyen MD Cholesterol in LDL [Mass/Vol] 65 mg/dL Normal 0-100 [facility] Comment on above: Result Comment: LDL Guidelines: <100 Desirable 100-129 Near to/above Desirable 130-159 Borderline >159 Undesirable Direct (measured) LDL and calculated LDL are not interchangeable tests. Performed By: #### L IPR ####[employer] [place] [address] Lab Director: Hung Nguyen MD Cholesterol in VLDL [Mass/Vol] 18 mg/dL Normal 1-30 [facility] Comment on above: Performed By: #### L IPR ####[employer] [place], [place] [id number] Lab Director: Hung Nguyen MD Cholesterol.total/Ch olesterol in HDL [Mass ratio] 2.6 {ratio} Normal [facility] Comment on above: Performed By: #### L IPR ####[address] [place] [address] Lab Director: Hugn Nguyen MD Triglyceride [Mass/Vol] 92 mg/dL Normal <150 [facility] Comment on above: Result Comment: Triglyceride Guidelines: <150 Desirable 150-199 Borderline 200-499 High >499 Very high Based on AHA Guidelines for fasting triglyceride, July 2012. Performed By: #### L IPR ####[address] [place] [address] Lab Director: Hung Nguyen MD No Panel Informationon 10-21 [facility] T4, Freeon 10-21-2024 Free T4 [Mass/Vol] 1.1 ng/dL 0.92 - 1.68 ng/dL [facility] TSHon 10-21-2024 Interpretation and review of laboratory results Abnormal [facility] TSH Qn 4.65 m[IU]/L High [facility] Thyroid Stim. Horm.on 2024 Thyroid Stim. Horm. 4.65 uIU/mL High 0.27-4.20 [facility] Comment on above: Performed By: #### T SH ####[facility] [place] [address] Lab Director: Augusto Sidhu MD#### FT4 ####[address] [place] [address] Lab Director: Hung Nguyen MD Thyroxine, Freeon 10-21-2024 Thyroxine, Free 1.1 ng/dL Normal 0.92-1.68 [facility] Comment on above: Performed By: #### T SH ####[facility] [address] [place], [place] [address] Lab Director: Auugsto Sidhu MD#### FT4 ####[facility] [place] [id number] lab Director: Hung Nguyen MD CBC W Auto Differential pane l (Bld)on 10-16-2024 Basophils (Bld) [#/Vol] 0.05 10*3/uL [facility] Basophils/100 WBC (Bld) 0.8 % [facility] Differential cell count method Nom (Bld) Auto [facility] Eosinophils (Bld) [#/Vol] 0.14 10*3/uL [facility] Eosinophils/100 WBC (Bld) 2.4 % [facility] Erythrocyte distribution width (RBC) [Ratio] 14.1 % 11.5 - 15.0 % [facility] Hematocrit (Bld) [Volume fraction] 39.6 % 39.0 - 51.0 % [facility] Hemoglobin (Bld) [Mass/Vol] 13.7 g/dL 13.0 - 17.0 g/dL [facility] Immature granulocytes (Bld) [#/Vol] 0.03 10*3/uL [facility] Immature granulocytes/100 WBC (Bld) 0.5 % [facility] Interpretation and review of laboratory results Abnormal [facility] Lymphocytes (Bld) [#/Vol] 0.74 10*3/uL Low [facility] Lymphocytes/100 WBC (Bld) 12.4 % [facility] MCH (RBC) [Entitic mass] 29.2 pg 26.0 - 34.0 pg [facility] MCHC (RBC) [Mass/Vol] 34.6 g/dL 30.5 - 36.0 g/dL [facility] MCV (RBC) [Entitic vol] 84.4 fL 80.0 - 100.0 fL [facility] Monocytes (Bld) [#/Vol] 0.39 10*3/uL [facility] Monocytes/100 WBC (Bld) 6.6 % [facility] Neutrophils (Bld) [#/Vol] 4.60 10*3/uL [facility] Neutrophils/100 WBC (Bld) 77.3 % [facility] Nucleated RBC (Bld) [#/Vol] [facility] Nucleated RBC/100 WBC (Bld) [Ratio] 0.0 % /100 WBC [facility] Platelet mean volume (Bld) [Entitic vol] 9.1 fL 9.0 - 12.7 fL [facility] Platelets (Bld) [#/Vol] 168 10*3/uL [facility] RBC (Bld) [#/Vol] 4.69 10*6/uL 4.20 - 6.00 m/uL [facility] WBC (Bld) [#/Vol] 5.95 10*3/uL [facility] Basophils (Bld) [#/Vol] 0.05 10*3/uL Normal <0.11 [facility] Comment on above: Order Comment: Speci men Type: BLOOD SPECIMENOrdering Facility: [facility] Address: [address] [place] [address] Performed By: #### 5 7021-8 ####[facility] LABCLIA [id number] [place] [address] Basophils/100 WBC (Bld) 0.8 % Normal [facility] Comment on above: Order Comment: Speci men Type: BLOOD SPECIMENOrdering Facility: [facility] Address: [address] [place] [address] Performed By: #### 5 7021-8 ####[facility] LABCLIA [id number] [place] [address] Differential cell count method Nom (Bld) Auto Normal [facility] Comment on above: Order Comment: Speci men Type: BLOOD SPECIMENOrdering Facility: [facility] Address: [address] [place] [address] Performed By: #### 5 7021-8 ####[facility] LABCLIA [id number] [place] [address] Eosinophils (Bld) [#/Vol] 0.14 10*3/uL Normal <0.46 [facility] Comment on above: Order Comment: Speci men Type: BLOOD SPECIMENOrdering Facility: [facility] Address: [address] [place] [address] Performed By: #### 5 7021-8 ####[facility] LABCLIA [id number] [place] [address] Eosinophils/100 WBC (Bld) 2.4 % Normal [facility] Comment on above: Order Comment: Speci men Type: BLOOD SPECIMENOrdering Facility: [facility] Address: [address] [place] [address] Performed By: #### 5 7021-8 ####[facility] LABCLIA [id number] [place] [address] Erythrocyte distribution width (RBC) [Ratio] 14.1 % Normal 11.5-15.0 [facility] Comment on above: Order Comment: Speci men Type: BLOOD SPECIMENOrdering Facility: [facility] Address: [address] [place] [address] Performed By: #### 5 7021-8 ####[facility] LABCLIA [id number] [place] [address] Hematocrit (Bld) [Volume fraction] 39.6 % Normal 39.0-51.0 [facility] Comment on above: Order Comment: Speci men Type: BLOOD SPECIMENOrdering Facility: [facility] Address: [address] [place] [address] Performed By: #### 5 7021-8 ####[facility] LABCLIA [id number] [place] [address] Hemoglobin (Bld) [Mass/Vol] 13.7 g/dL Normal 13.0-17.0 [facility] Comment on above: Order Comment: Speci men Type: BLOOD SPECIMENOrdering Facility: [facility] Address: [address] [place] [address] Performed By: #### 5 7021-8 ####[facility] LABCLIA [id number] [place] [address] Immature granulocytes (Bld) [#/Vol] 0.03 10*3/uL Normal <0.10 [facility] Comment on above: Order Comment: Speci men Type: BLOOD SPECIMENOrdering Facility: [facility] Address: [address] [place] [address] Performed By: #### 5 7021-8 ####[facility]CLIA [id number] [place] [address] Immature granulocytes/100 WBC (Bld) 0.5 % Normal [facility] Comment on above: Order Comment: Speci men Type: BLOOD SPECIMENOrdering Facility: [facility] Address: [address] [place] [address] Performed By: #### 5 7021-8 ####[facility]CLIA [id number] [place] [address] Lymphocytes (Bld) [#/Vol] 0.74 10*3/uL Low 1.00-4.00 [facility] Comment on above: Order Comment: Speci men Type: BLOOD SPECIMENOrdering Facility: [facility] Address: [address] [place] [address] Performed By: #### 5 7021-8 ####[facility] LABCLIA [id number] [place] [address] Lymphocytes/100 WBC (Bld) 12.4 % Normal [facility] Comment on above: Order Comment: Speci men Type: BLOOD SPECIMENOrdering Facility: [facility] Address: [address] [place] [address] Performed By: #### 5 7021-8 ####[facility] LABCLIA [id number] [place] [address] MCH (RBC) [Entitic mass] 29.2 pg Normal 26.0-34.0 [facility] Comment on above: Order Comment: Speci men Type: BLOOD SPECIMENOrdering Facility: [facility] Address: [address] [place] [address] Performed By: #### 5 7021-8 ####[facility] LABCLIA [id number] [place] [address] MCHC (RBC) [Mass/Vol] 34.6 g/dL Normal 30.5-36.0 [facility] Comment on above: Order Comment: Speci men Type: BLOOD SPECIMENOrdering Facility: [facility] Address: [address] [place] [address] Performed By: #### 5 7021-8 ####[facility] LABCLIA [id number] [place] [address] MCV (RBC) [Entitic vol] 84.4 fL Normal 80.0-100.0 [facility] Comment on above: Order Comment: Speci men Type: BLOOD SPECIMENOrdering Facility: [facility] Address: [address] [place] [address] Performed By: #### 5 7021-8 ####[facility] LABCLIA [id number] [place] [address] Monocytes (Bld) [#/Vol] 0.39 10*3/uL Normal <0.87 [facility] Comment on above: Order Comment: Speci men Type: BLOOD SPECIMENOrdering Facility: [facility] Address: [address] [place] [address] Performed By: #### 5 7021-8 ####[facility] LABCLIA [id number] [place] [address] Monocytes/100 WBC (Bld) 6.6 % Normal [facility] Comment on above: Order Comment: Speci men Type: BLOOD SPECIMENOrdering Facility: [facility] Address: [address] [place] [address] Performed By: #### 5 7021-8 ####[facility] LABCLIA [id number] [place] [address] Neutrophils (Bld) [#/Vol] 4.60 10*3/uL Normal 1.45-7.50 [facility] Comment on above: Order Comment: Speci men Type: BLOOD SPECIMENOrdering Facility: [facility] Address: [address] [place] [address] Performed By: #### 5 7021-8 ####[facility] LABCLIA [id number] [place] [address] Neutrophils/100 WBC (Bld) 77.3 % Normal [facility] Comment on above: Order Comment: Speci men Type: BLOOD SPECIMENOrdering Facility: [facility] Address: [address] [place] [address] Performed By: #### 5 7021-8 ####[facility] LABCLIA [id number] [place] [address] Nucleated RBC (Bld) [#/Vol] 10*3/uL Normal <0.01 [facility] Comment on above: Order Comment: Speci men Type: BLOOD SPECIMENOrdering Facility: [facility] Address: [address] [place] [address] Performed By: #### 5 7021-8 ####[facility] LABCLIA [id number] [place] [address] Nucleated RBC/100 WBC (Bld) [Ratio] 0.0 /100 WBC Normal [facility] Comment on above: Order Comment: Speci men Type: BLOOD SPECIMENOrdering Facility: [facility] Address: [address] [place] [address] Performed By: #### 5 7021-8 ####[facility] LABCLIA [id number] [place] [address] Platelet mean volume (Bld) [Entitic vol] 9.1 fL Normal 9.0-12.7 [facility] Comment on above: Order Comment: Speci men Type: BLOOD SPECIMENOrdering Facility: [facility] Address: [address] [place] [address] Performed By: #### 5 7021-8 ####[facility] LABCLIA [id number] [place] [address] Platelets (Bld) [#/Vol] 168 10*3/uL Normal 150-400 [facility] Comment on above: Order Comment: Speci men Type: BLOOD SPECIMENOrdering Facility: [facility] Address: [address] [place], [place] [address] Performed By: #### 5 7021-8 ####[facility] LABIA [id number] [place] [address] RBC (Bld) [#/Vol] 4.69 10*6/uL Normal 4.20-6.00 [facility] Comment on above: Order Comment: Speci men Type: BLOOD SPECIMENOrdering Facility: [facility] Address: [address] [place], [place] [address] Performed By: #### 5 7021-8 ####[facility] LABIA [id number] [place] [address] WBC (Bld) [#/Vol] 5.95 10*3/uL Normal 3.70-11.00 [facility] Comment on above: Order Comment: Speci men Type: BLOOD SPECIMENOrdering Facility: [facility] Address: [address] [place], [place] [address] Performed By: #### 5 7021-8 ####[facility] LABIA [id number] [place] [address] CT ABD/PEL W IVCONon 025 CT ABD/PEL W IVCON * * *Final Report* * * DATE OF EXAM: Oct 16 2024 9:08AM [facility] 0530 - CT ABD/PEL W IVCON / PROCEDURE REASON: Malignant 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) * * * * Physician Interpretation * * * * RESULT: EXAMINATION: CT ABDOMEN AND PELVIS WITH IV CONTRAST CLINICAL HISTORY: Malignant neoplasm of the urinary bladder. TECHNIQUE: CT of the abdomen and pelvis was performed using standard technique, scanning from just above the dome of the diaphragm to the symphysis pubis. MQ: CTAP_3 Contrast: IV: 100 ml of Omnipaque 350 Oral: 500 ml of Omni 240 10-25ml diluted with water CT Radiation dose: Integrated Dose-length product (DLP) for this visit = 967 mGy*cm. CT Dose Reduction Employed: Automated exposure control (AEC) COMPARISON: CT of the abdomen and pelvis with contrast from 06/29/2024 RESULT: Liver: Stable small subcentimeter hypervascular focus in the dome of segment 8 of the liver on slice 12 of series 3 and in the dome of segment 4A of the liver on slice 21 of series 3. Although not adequately evaluated on single phase imaging, the stability and appearance suggests that these may represent small vascular malformations or hemangioma. Biliary: No bile duct dilation. Gallbladder is unremarkable. Spleen: Stable 1.9 x 1.6 cm hypervascular lesion in the posterior spleen, possibly representing a hemangioma. No splenomegaly. Pancreas: No mass or duct dilation. Adrenals: Stable nodular thickening of the adrenal glands which is unchanged when compared to multiple prior exams. Kidneys: Surgical changes compatible with left nephrectomy. There is stable fat stranding along the left paracolic gutter, likely related to fat necrosis from patient's prior nephrectomy. Subcentimeter hypodense lesions in the right kidney which are too small to characterize but likely represent cysts. GI tract: No bowel obstruction. Moderate diverticulosis of the descending and sigmoid colon. Lymph nodes: No abdominal or pelvic lymphadenopathy. Mesentery/Peritoneum: No ascites or mass. There is fluid lateral to the right greater trochanter. This is been present on prior exams and may be related to bursitis. Pelvis: Possible prior transurethral resection of the prostate gland. Circumferential thickening of the wall of the urinary bladder with bladder wall trabeculation. This appearance is likely due to changes related to chronic bladder outlet obstruction. Bones/Soft Tissues: Degenerative changes. Small fat-containing inguinal hernias bilaterally. There is fluid present lateral to the right greater trochanter. This is been present on prior exams. Although nonspecific on CT scan, this may be related to bursitis. Lower thorax: A chest CT performed will be reported separately. Localizer images: No additional findings. IMPRESSION: 1. Stable examination when compared to the prior study from 06/29/2024. No definite evidence of metastatic disease in the abdomen or pelvis. Transcribe Date/Time: Oct 16 2024 11:10A Dictated by: LIO OSORIO MD This examination was interpreted and the report reviewed and electronically signed by: LIO OSORIO MD on Oct 16 2024 11:23AM EST Thank you for allowing us to participate in the care of your patient. Should there be any questions regarding this interpretation, please call [phone]. If you are unable to reach us at the number above, please feel free to contact [facility] at [phone]. [id number] Normal [facility] CT Abdomen and Pelvis W cont rast [place] 10-16-2024 IMPRESSION: 1. Stable examination when compared to the prior study from 06/29/2024. No definite evidence of metastatic disease in the abdomen or pelvis. Transcribe Date/Time: Oct 16 2024 11:10A Dictated by: LIO OSORIO MD This examination was interpreted and the report reviewed and electronically signed by: LIO OSORIO MD on Oct 16 2024 11:23AM EST Thank you for allowing us to participate in the care of your patient. Should there be any questions regarding this interpretation, please call [phone]. If you are unable to reach us at the number above, please feel free to contact [facility] at [phone]. DIVISION OF RADIOLOGY * * *Final Report* * * DATE OF EXAM: Oct 16 2024 9:08AM [facility] 0530 - CT ABD/PEL W IVCON / PROCEDURE REASON: Malignant 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) * * * * Physician Interpretation * * * * RESULT: EXAMINATION: CT ABDOMEN AND PELVIS WITH IV CONTRAST CLINICAL HISTORY: Malignant neoplasm of the urinary bladder. TECHNIQUE: CT of the abdomen and pelvis was performed using standard technique, scanning from just above the dome of the diaphragm to the symphysis pubis. MQ: CTAP_3 Contrast: IV: 100 ml of Omnipaque 350 Oral: 500 ml of Omni 240 10-25ml diluted with water CT Radiation dose: Integrated Dose-length product (DLP) for this visit = 967 mGy*cm. CT Dose Reduction Employed: Automated exposure control (AEC) COMPARISON: CT of the abdomen and pelvis with contrast from 06/29/2024 RESULT: Liver: Stable small subcentimeter hypervascular focus in the dome of segment 8 of the liver on slice 12 of series 3 and in the dome of segment 4A of the liver on slice 21 of series 3. Although not adequately evaluated on single phase imaging, the stability and appearance suggests that these may represent small vascular malformations or hemangioma. Biliary: No bile duct dilation. Gallbladder is unremarkable. Spleen: Stable 1.9 x 1.6 cm hypervascular lesion in the posterior spleen, possibly representing a hemangioma. No splenomegaly. Pancreas: No mass or duct dilation. Adrenals: Stable nodular thickening of the adrenal glands which is unchanged when compared to multiple prior exams. Kidneys: Surgical changes compatible with left nephrectomy. There is stable fat stranding along the left paracolic gutter, likely related to fat necrosis from patient's prior nephrectomy. Subcentimeter hypodense lesions in the right kidney which are too small to characterize but likely represent cysts. GI tract: No bowel obstruction. Moderate diverticulosis of the descending and sigmoid colon. Lymph nodes: No abdominal or pelvic lymphadenopathy. Mesentery/Peritoneum: No ascites or mass. There is fluid lateral to the right greater trochanter. This is been present on prior exams and may be related to bursitis. Pelvis: Possible prior transurethral resection of the prostate gland. Circumferential thickening of the wall of the urinary bladder with bladder wall trabeculation. This appearance is likely due to changes related to chronic bladder outlet obstruction. Bones/Soft Tissues: Degenerative changes. Small fat-containing inguinal hernias bilaterally. There is fluid present lateral to the right greater trochanter. This is been present on prior exams. Although nonspecific on CT scan, this may be related to bursitis. Lower thorax: A chest CT performed will be reported separately. Localizer images: No additional findings. DIVISION OF RADIOLOGY Provider, [facility] - 10/16/2024 * * *Final Report* * * DATE OF EXAM: Oct 16 2024 9:08AM [facility] 0530 - CT ABD/PEL W IVCON / PROCEDURE REASON: Malignant 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) * * * * Physician Interpretation * * * * RESULT: EXAMINATION: CT ABDOMEN AND PELVIS WITH IV CONTRAST CLINICAL HISTORY: Malignant neoplasm of the urinary bladder. TECHNIQUE: CT of the abdomen and pelvis was performed using standard technique, scanning from just above the dome of the diaphragm to the symphysis pubis. MQ: CTAP_3 Contrast: IV: 100 ml of Omnipaque 350 Oral: 500 ml of Omni 240 10-25ml diluted with water CT Radiation dose: Integrated Dose-length product (DLP) for this visit = 967 mGy*cm. CT Dose Reduction Employed: Automated exposure control (AEC) COMPARISON: CT of the abdomen and pelvis with contrast from 06/29/2024 RESULT: Liver: Stable small subcentimeter hypervascular focus in the dome of segment 8 of the liver on slice 12 of series 3 and in the dome of segment 4A of the liver on slice 21 of series 3. Although not adequately evaluated on single phase imaging, the stability and appearance suggests that these may represent small vascular malformations or hemangioma. Biliary: No bile duct dilation. Gallbladder is unremarkable. Spleen: Stable 1.9 x 1.6 cm hypervascular lesion in the posterior spleen, possibly representing a hemangioma. No splenomegaly. Pancreas: No mass or duct dilation. Adrenals: Stable nodular thickening of the adrenal glands which is unchanged when compared to multiple prior exams. Kidneys: Surgical changes compatible with left nephrectomy. There is stable fat stranding along the left paracolic gutter, likely related to fat necrosis from patient's prior nephrectomy. Subcentimeter hypodense lesions in the right kidney which are too small to characterize but likely represent cysts. GI tract: No bowel obstruction. Moderate diverticulosis of the descending and sigmoid colon. Lymph nodes: No abdominal or pelvic lymphadenopathy. Mesentery/Peritoneum: No ascites or mass. There is fluid lateral to the right greater trochanter. This is been present on prior exams and may be related to bursitis. Pelvis: Possible prior transurethral resection of the prostate gland. Circumferential thickening of the wall of the urinary bladder with bladder wall trabeculation. This appearance is likely due to changes related to chronic bladder outlet obstruction. Bones/Soft Tissues: Degenerative changes. Small fat-containing inguinal hernias bilaterally. There is fluid present lateral to the right greater trochanter. This is been present on prior exams. Although nonspecific on CT scan, this may be related to bursitis. Lower thorax: A chest CT performed will be reported separately. Localizer images: No additional findings. IMPRESSION IMPRESSION: 1. Stable examination when compared to the prior study from 06/29/2024. No definite evidence of metastatic disease in the abdomen or pelvis. Transcribe Date/Time: Oct 16 2024 11:10A Dictated by: LIO OSORIO MD This examination was interpreted and the report reviewed and electronically signed by: LIO OSORIO MD on Oct 16 2024 11:23AM EST Thank you for allowing us to participate in the care of your patient. Should there be any questions regarding this interpretation, please call [phone]. If you are unable to reach us at the number above, please feel free to contact [facility]Radiology at [phone]. [facility] CT CHEST W IVCONon CT CHEST W IVCON * * *Final Report* * * DATE OF EXAM: Oct 16 2024 9:08AM [facility] 0539 - CT CHEST W IVCON / PROCEDURE REASON: Malignant 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) * * * * Physician Interpretation * * * * RESULT: EXAMINATION: CHEST CT WITH CONTRAST CLINICAL HISTORY: Malignant neoplasm of the urinary bladder. Technique: Spiral CT acquisition of the chest from the thoracic inlet to the upper abdomen following IV contrast. MQ: CTCW_6 Contrast: 100 mL Omnipaque [address] Radiation dose: Integrated Dose-length product (DLP) for this visit = 967 mGy*cm CT Dose Reduction Employed: Automated exposure control (AEC) Comparison: Chest CT with contrast from 06/29/2024 RESULT: Limitations: None. Lines, tubes, and devices: Left sided pacemaker. Lung parenchyma and airways: Pulmonary nodules are present on series 4. For example, -Stable 2 mm nodule in the lateral right upper lobe on slice 70. -Stable 3 mm nodule in the central right upper lobe on slice 80. -Stable 3 mm nodule in the posterior right upper lobe on slice 81. -Stable 2 mm nodule in the lateral right lower lobe on slice 107. -Stable 2 mm nodule in the lateral left upper lobe on slice 70. Scattered areas of discoid atelectasis. Pleural space: No pleural effusion. No pleural thickening. Lower neck, lymph nodes, and mediastinum: No suspicious axillary or mediastinal lymphadenopathy. Stable top normal-sized right hilar lymph node measuring 1.5 x 1.4 cm on slice 92 of series 3. Heart, pericardium, and thoracic vessels: Trace pericardial fluid. Moderate to marked coronary artery calcification. Bones and soft tissues: Stable nonspecific sclerotic foci in the left lateral sixth and seventh ribs. Upper abdomen: A CT of the abdomen and pelvis was performed and will be reported separately. Localizer images: No additional findings. IMPRESSION: 1. Stable subcentimeter pulmonary nodules. Stable top normal-sized right hilar lymph node. Stable nonspecific sclerotic foci in the left lateral sixth and seventh ribs. Transcribe Date/Time: Oct 16 2024 11:23A Dictated by: LIO OSORIO MD This examination was interpreted and the report reviewed and electronically signed by: LIO OSORIO MD on Oct 16 2024 11:58AM EST Thank you for allowing us to participate in the care of your patient. Should there be any questions regarding this interpretation, please call [phone]. If you are unable to reach us at the number above, please feel free to contact [facility]iology at [phone]. [id number] Normal [facility] CT Chest W contrast [place] IMPRESSION: 1. Stable subcentimeter pulmonary nodules. Stable top normal-sized right hilar lymph node. Stable nonspecific sclerotic foci in the left lateral sixth and seventh ribs. Transcribe Date/Time: Oct 16 2024 11:23A Dictated by: LIO OSORIO MD This examination was interpreted and the report reviewed and electronically signed by: LIO OSORIO MD on Oct 16 2024 11:58AM EST Thank you for allowing us to participate in the care of your patient. Should there be any questions regarding this interpretation, please call [phone]. If you are unable to reach us at the number above, please feel free to contact [facility] at [phone]. DIVISION OF RADIOLOGY * * *Final Report* * * DATE OF EXAM: Oct 16 2024 9:08AM [facility] 0539 - CT CHEST W IVCON / PROCEDURE REASON: Malignant 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) * * * * Physician Interpretation * * * * RESULT: EXAMINATION: CHEST CT WITH CONTRAST CLINICAL HISTORY: Malignant neoplasm of the urinary bladder. Technique: Spiral CT acquisition of the chest from the thoracic inlet to the upper abdomen following IV contrast. MQ: CTCW_6 Contrast: 100 mL Omnipaque [address] Radiation dose: Integrated Dose-length product (DLP) for this visit = 967 mGy*cm CT Dose Reduction Employed: Automated exposure control (AEC) Comparison: Chest CT with contrast from 06/29/2024 RESULT: Limitations: None. Lines, tubes, and devices: Left sided pacemaker. Lung parenchyma and airways: Pulmonary nodules are present on series 4. For example, -Stable 2 mm nodule in the lateral right upper lobe on slice 70. -Stable 3 mm nodule in the central right upper lobe on slice 80. -Stable 3 mm nodule in the posterior right upper lobe on slice 81. -Stable 2 mm nodule in the lateral right lower lobe on slice 107. -Stable 2 mm nodule in the lateral left upper lobe on slice 70. Scattered areas of discoid atelectasis. Pleural space: No pleural effusion. No pleural thickening. Lower neck, lymph nodes, and mediastinum: No suspicious axillary or mediastinal lymphadenopathy. Stable top normal-sized right hilar lymph node measuring 1.5 x 1.4 cm on slice 92 of series 3. Heart, pericardium, and thoracic vessels: Trace pericardial fluid. Moderate to marked coronary artery calcification. Bones and soft tissues: Stable nonspecific sclerotic foci in the left lateral sixth and seventh ribs. Upper abdomen: A CT of the abdomen and pelvis was performed and will be reported separately. Localizer images: No additional findings. DIVISION OF RADIOLOGY Provider, [facility] - 10/16/2024 * * *Final Report* * * DATE OF EXAM: Oct 16 2024 9:08AM [facility] 0539 - CT CHEST W IVCON / PROCEDURE REASON: Malignant 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) * * * * Physician Interpretation * * * * RESULT: EXAMINATION: CHEST CT WITH CONTRAST CLINICAL HISTORY: Malignant neoplasm of the urinary bladder. Technique: Spiral CT acquisition of the chest from the thoracic inlet to the upper abdomen following IV contrast. MQ: CTCW_6 Contrast: 100 mL Omnipaque [address] Radiation dose: Integrated Dose-length product (DLP) for this visit = 967 mGy*cm CT Dose Reduction Employed: Automated exposure control (AEC) Comparison: Chest CT with contrast from 06/29/2024 RESULT: Limitations: None. Lines, tubes, and devices: Left sided pacemaker. Lung parenchyma and airways: Pulmonary nodules are present on series 4. For example, -Stable 2 mm nodule in the lateral right upper lobe on slice 70. -Stable 3 mm nodule in the central right upper lobe on slice 80. -Stable 3 mm nodule in the posterior right upper lobe on slice 81. -Stable 2 mm nodule in the lateral right lower lobe on slice 107. -Stable 2 mm nodule in the lateral left upper lobe on slice 70. Scattered areas of discoid atelectasis. Pleural space: No pleural effusion. No pleural thickening. Lower neck, lymph nodes, and mediastinum: No suspicious axillary or mediastinal lymphadenopathy. Stable top normal-sized right hilar lymph node measuring 1.5 x 1.4 cm on slice 92 of series 3. Heart, pericardium, and thoracic vessels: Trace pericardial fluid. Moderate to marked coronary artery calcification. Bones and soft tissues: Stable nonspecific sclerotic foci in the left lateral sixth and seventh ribs. Upper abdomen: A CT of the abdomen and pelvis was performed and will be reported separately. Localizer images: No additional findings. IMPRESSION IMPRESSION: 1. Stable subcentimeter pulmonary nodules. Stable top normal-sized right hilar lymph node. Stable nonspecific sclerotic foci in the left lateral sixth and seventh ribs. Transcribe Date/Time: Oct 16 2024 11:23A Dictated by: LIO OSORIO MD This examination was interpreted and the report reviewed and electronically signed by: LIO OSORIO MD on Oct 16 2024 11:58AM EST Thank you for allowing us to participate in the care of your patient. Should there be any questions regarding this interpretation, please call [phone]. If you are unable to reach us at the number above, please feel free to contact [facility] at [phone]. [facility] Comprehensive metabolic 2000 panelOrdered By: Elizabeth Cody on 10-16-2024 Albumin [Mass/Vol] 4.3 g/dL 3.9 - 4.9 g/dL [facility] ALP [Catalytic activity/Vol] 84 U/L 38 - 113 U/L [facility] ALT [Catalytic activity/Vol] 19 U/L 10 - 54 U/L [facility] Anion gap [Moles/Vol] 10 mmol/L 8 - 15 mmol/L [facility] AST [Catalytic activity/Vol] 25 U/L 14 - 40 U/L [facility] Bilirubin [Mass/Vol] 0.9 mg/dL 0.2 - 1 .3 mg/dL [facility] Calcium [Mass/Vol] 9.2 mg/dL 8.5 - 10. 2 mg/dL [facility] Chloride [Moles/Vol] 105 mmol/L 98 - 10 7 mmol/L [facility] CO2 [Moles/Vol] 26 mmol/L 22 - 30 mmol/L [facility] Creatinine [Mass/Vol] 1.71 mg/dL High 0.73 - 1.22 mg/dL [facility] GFR/1.73 sq M.predicted among non-blacks MDRD (S/P/Bld) [Vol rate/Area] 39 mL/min/{1.73_m2} Low - PINF [facility] Comment on above: Estimated Glomerular Filtration Rate (eGFR) is calculated using the 2020 CKD-EPI creatinine equation. This equation utilizes serum creatinine, sex, and age as parameters. The creatinine assay has traceable calibration to isotope dilution-mass spectrometry. Refer to KDIGO guidelines for clinical interpretation. In patients with unstable renal function, e.g. those with acute kidney injury, the eGFR may not accurately reflect actual GFR. Glucose [Mass/Vol] 112 mg/dL High 74 - 99 mg/dL [facility] Comment on above: The [place] [employer] Association (ADA) provides guidance for cutoff values for fasting glucose and random glucose. The ADA defines fasting as no caloric intake for at least 8 hours. Fasting plasma glucose results between 100 to 125 mg/dL indicate increased risk for diabetes (prediabetes). Fasting plasma glucose results greater than or equal to 126 mg/dL meet the criteria for diagnosis of diabetes. In the absence of unequivocal hyperglycemia, results should be confirmed by repeat testing. In a patient with classic symptoms of hyperglycemia or hyperglycemic crisis, random plasma glucose results greater than or equal to 200 mg/dL meet the criteria for diagnosis of diabetes. Reference: Standards of Medical Care in Diabetes 2016, [place] [employer]. Diabetes Care. 2016.39(Suppl 1). Interpretation and review of laboratory results Abnormal [facility] Potassium [Moles/Vol] 4.2 mmol/L 3.7 - 5.1 mmol/L [facility] Protein [Mass/Vol] 6.4 g/dL 6.3 - 8.0 g/dL [facility] Sodium [Moles/Vol] 141 mmol/L 136 - 144 mmol/L [facility] Urea nitrogen [Mass/Vol] 32 mg/dL High 9 - 24 mg/dL [facility] Comprehensive metabolic 2000 panelon 10-16-2024 Albumin [Mass/Vol] 4.3 g/dL Normal 3.9-4.9 [facility] Comment on above: Order Comment: Speci men Type: BLOOD SPECIMENOrdering Facility: [facility] Address: [address] [place] [address] Performed By: #### 2 4323-8 ####[facility] LABCLIA [id number] [place] [address] ALP [Catalytic activity/Vol] 84 U/L Normal 38-113 [facility] Comment on above: Order Comment: Speci men Type: BLOOD SPECIMENOrdering Facility: [facility] Address: [address] [place] [address] Performed By: #### 2 4323-8 ####[facility] LABCLIA [id number] [place] [address] ALT [Catalytic activity/Vol] 19 U/L Normal 10-54 [facility] Comment on above: Order Comment: Speci men Type: BLOOD SPECIMENOrdering Facility: [facility] Address: [address] [place] [address] Performed By: #### 2 4323-8 ####[facility] LABCLIA [id number] [place] [address] Anion gap [Moles/Vol] 10 mmol/L Normal 8-15 [facility] Comment on above: Order Comment: Speci men Type: BLOOD SPECIMENOrdering Facility: [facility] Address: [address] [place] [address] Performed By: #### 2 4323-8 ####[facility] LABCLIA [id number] [place] [address] AST [Catalytic activity/Vol] 25 U/L Normal 14-40 [facility] Comment on above: Order Comment: Speci men Type: BLOOD SPECIMENOrdering Facility: [facility] Address: [address] [place] [address] Performed By: #### 2 4323-8 ####[facility] LABCLIA [id number] [place] [address] Bilirubin [Mass/Vol] 0.9 mg/dL Normal 0.2-1.3 [facility] Comment on above: Order Comment: Speci men Type: BLOOD SPECIMENOrdering Facility: [facility] Address: [address] [place], [place] [address] Performed By: #### 2 4323-8 ####[facility] LABCLIA [id number] [place] [address] Calcium [Mass/Vol] 9.2 mg/dL Normal 8.5-10.2 [facility] Comment on above: Order Comment: Speci men Type: BLOOD SPECIMENOrdering Facility: [facility] Address: [address] [place] [address] Performed By: #### 2 4323-8 ####[facility] LABCLIA [id number] [place] [address] Chloride [Moles/Vol] 105 mmol/L Normal 98-107 [facility] Comment on above: Order Comment: Speci men Type: BLOOD SPECIMENOrdering Facility: [facility] Address: [address] [place] [address] Performed By: #### 2 4323-8 ####[facility] LABCLIA [id number] [place] [address] CO2 [Moles/Vol] 26 mmol/L Normal 22-30 [facility] Comment on above: Order Comment: Speci men Type: BLOOD SPECIMENOrdering Facility: [facility] Address: [address] [place] [address] Performed By: #### 2 4323-8 ####[facility] LABCLIA [id number] [place] [address] Creatinine [Mass/Vol] 1.71 mg/dL High 0.73-1.22 [facility] Comment on above: Order Comment: Speci men Type: BLOOD SPECIMENOrdering Facility: [facility] Address: [address] [place], [place] [address] Performed By: #### 2 4323-8 ####[facility] LABCLIA [id number] [place] [address] Creatinine and Glomerular filtration rate.predicted panel (S/P/Bld) 39 mL/min/1.73m??? Low >=60 [facility] Comment on above: Order Comment: Vero barton Type: BLOOD SPECIMENOrdering Facility: [facility] Address: [address] [place] [address] Result Comment: Viviana mated Glomerular Filtration Rate [...] actual GFR. Performed By: #### 2 4323-8 ####[facility] LABIA [id number] [place] [address] Glucose [Mass/Vol] 112 mg/dL High 74-99 [facility] Comment on above: Order Comment: Speci oralia Type: BLOOD SPECIMENOrdering Facility: [facility] Address: [address] [place] [address] Result Comment: The [place] Diabetes [employer] (ADA) provides guidance for cutoff values for fasting glucose and random glucose. The ADA defines fasting as no caloric intake for at least 8 hours. Fasting plasma glucose results between 100 to 125 mg/dL indicate increased risk for diabetes (prediabetes). Fasting plasma glucose results greater than or equal to 126 mg/dL meet the criteria for diagnosis of diabetes. In the absence of unequivocal hyperglycemia, results should be confirmed by repeat testing. In a patient with classic symptoms of hyperglycemia or hyperglycemic crisis, random plasma glucose results greater than or equal to 200 mg/dL meet the criteria for diagnosis of diabetes. Reference: Standards of Medical Care in Diabetes 2016, [place] [employer]. Diabetes Care. 2016.39(Suppl 1). Performed By: #### 2 4323-8 ####[facility] LABIA [id number] [place] [address] Potassium [Moles/Vol] 4.2 mmol/L Normal 3.7-5.1 [facility] Comment on above: Order Comment: Speci men Type: BLOOD SPECIMENOrdering Facility: [facility] Address: [address] [place] [address] Performed By: #### 2 4323-8 ####[facility] LABCLIA [id number] [place] [address] Protein [Mass/Vol] 6.4 g/dL Normal 6.3-8.0 [facility] Comment on above: Order Comment: Speci men Type: BLOOD SPECIMENOrdering Facility: [facility] Address: [address] [place] [address] Performed By: #### 2 4323-8 ####[facility] LABCLIA [id number] [place] [address] Sodium [Moles/Vol] 141 mmol/L Normal 136-144 [facility] Comment on above: Order Comment: Speci men Type: BLOOD SPECIMENOrdering Facility: [facility] Address: [address] [place] [address] Performed By: #### 2 4323-8 ####[facility] LABCLIA [id number] [place] [address] Urea nitrogen [Mass/Vol] 32 mg/dL High 9-24 [facility] Comment on above: Order Comment: Speci men Type: BLOOD SPECIMENOrdering Facility: [facility] Address: [address] [place] [address] Performed By: #### 2 4323-8 ####[facility] LABCLIA [id number] [place] [address] No Panel Informationon 10-16 [facility] Radiology Study observation (narrative) [facility] Office Visiton 09-16-2024 Follow-up visit [id number] Juan Jose Austin 1940 M Date Provider Department Center 09/16/2024 [facility] Family History Problem Relation Age of Onset Heart failure Mother Lung cancer Father Family Status - Relation Status Age at Mother Father Level of Service:75393 [place] OFFICE/OUTPATIENT ESTABLISHED LOW MDM 20 MIN Reason for Visit and Comments: Chest Pain [774849] Normal [facility] XR CHEST (2 VW)on 09-10-2024 XR CHEST (2 VW) EXAMINATION: TWO XRAY VIEWS OF THE CHEST 09/10/2024 9:15 pm COMPARISON: 03/22/2024 HISTORY: Pacemaker problem. FINDINGS: Stable left chest pacemaker. Stable cardiomediastinal contours. Left basilar atelectasis/scarring. Right lung is clear. No pleural effusion or pneumothorax. IMPRESSION: Left basilar atelectasis/scarring. Stable pacemaker. Interpreted by: Krunal Damian MD Signed by: Krunal Damian MD 09/10/24 Final result Normal [facility] XR Chest 2 Viewson Left basilar atelectasis/scarring. Stable pacemaker. PN RIS CONSOLIDATED EXAMINATION: TWO XRAY VIEWS OF THE CHEST 09/10/2024 9:15 pm COMPARISON: 03/22/2024 HISTORY: Pacemaker problem. FINDINGS: Stable left chest pacemaker. Stable cardiomediastinal contours. Left basilar atelectasis/scarring. Right lung is clear. No pleural effusion or pneumothorax. [facility] RIS CONSOLIDATED Krunal Damian MD - 09/10/2024 EXAMINATION: TWO XRAY VIEWS OF THE CHEST 09/10/2024 9:15 pm COMPARISON: 03/22/2024 HISTORY: Pacemaker problem. FINDINGS: Stable left chest pacemaker. Stable cardiomediastinal contours. Left basilar atelectasis/scarring. Right lung is clear. No pleural effusion or pneumothorax. IMPRESSION: Left basilar atelectasis/scarring. Stable pacemaker. [facility] Radiology Study observation (narrative) [facility] XR Chest 2 ViewsOrdered By: Krunal Damian on 09-10-2024 [facility] Work Phone: CBC W Auto Differential pane l (Bld)on 08-21-2024 Basophils (Bld) [#/Vol] 0.04 10*3/uL Normal <0.11 [facility] Comment on above: Order Comment: Speci men Type: BLOOD SPECIMEN [facility]ing Facility: [facility] Address: [address] [place] [address] Performed By: #### 5 7021-8 #### [facility] CLIA [id number] [address] [place] [address] Basophils/100 WBC (Bld) 0.7 % Normal [facility] Comment on above: Order Comment: Speci men Type: BLOOD SPECIMEN Ordering Facility: [facility] Address: [address] [place] [address] Performed By: #### 5 7021-8 #### [facility] CLIA [id number] [address] [place] [address] Differential cell count method Nom (Bld) Auto Normal [facility] Comment on above: Order Comment: Speci men Type: BLOOD SPECIMEN Ordering Facility: [facility] Address: [address] [place] [address] Performed By: #### 5 7021-8 #### [facility] CLIA [id number] [address] [place] [address] Eosinophils (Bld) [#/Vol] 0.19 10*3/uL Normal <0.46 [facility] Comment on above: Order Comment: Speci men Type: BLOOD SPECIMEN Ordering Facility: [facility] Address: [address] [place] [address] Performed By: #### 5 7021-8 #### [facility] CLIA [id number] [address] [place] [address] Eosinophils/100 WBC (Bld) 3.2 % Normal [facility] Comment on above: Order Comment: Speci men Type: BLOOD SPECIMEN Ordering Facility: [facility] Address: [facility] [place] [address] Performed By: #### 5 7021-8 #### [facility] CLIA [id number] [address] [place] [address] Erythrocyte distribution width (RBC) [Ratio] 14.5 % Normal 11.5-15.0 [facility] Comment on above: Order Comment: Speci men Type: BLOOD SPECIMEN Ordering Facility: [facility] Address: [address] [place] [address] Performed By: #### 5 7021-8 #### [facility] CLIA [id number] [address] [place] [address] Hematocrit (Bld) [Volume fraction] 39.4 % Normal 39.0-51.0 [facility] Comment on above: Order Comment: Speci men Type: BLOOD SPECIMEN Ordering Facility: [facility] Address: [address] [place] [address] Performed By: #### 5 7021-8 #### [facility] CLIA [id number] [address] [place] [address] Hemoglobin (Bld) [Mass/Vol] 13.6 g/dL Normal 13.0-17.0 [facility] Comment on above: Order Comment: Speci men Type: BLOOD SPECIMEN Ordering Facility: [facility] Address: [address] [place] [address] Performed By: #### 5 7021-8 #### [facility] CLIA [id number] [address] [place] [address] Immature granulocytes (Bld) [#/Vol] 0.03 10*3/uL Normal <0.10 [facility] Comment on above: Order Comment: Speci men Type: BLOOD SPECIMEN Ordering Facility: [facility] Address: [address] [place] [address] Performed By: #### 5 7021-8 #### [facility] CLIA [id number] [address] [place] [address] Immature granulocytes/100 WBC (Bld) 0.5 % Normal [facility] Comment on above: Order Comment: Speci men Type: BLOOD SPECIMEN Ordering Facility: [facility] Address: [address] [place] [address] Performed By: #### 5 7021-8 #### [facility] CLIA [id number] [address] [place] [address] 44892 Lymphocytes (Bld) [#/Vol] 0.91 10*3/uL Low 1.00-4.00 [facility] Comment on above: Order Comment: Speci men Type: BLOOD SPECIMEN Ordering Facility: [facility] Address: [address] [place] [address] Performed By: #### 5 7021-8 #### [facility] CLIA [id number] [address] [place] [address] 85594 Lymphocytes/100 WBC (Bld) 15.1 % Normal [facility] Comment on above: Order Comment: Speci men Type: BLOOD SPECIMEN Ordering Facility: [facility] Address: [address] [place] [address] Performed By: #### 5 7021-8 #### [facility] CLIA [id number] [address] [place] [address] 14988 MCH (RBC) [Entitic mass] 28.8 pg Normal 26.0-34.0 [facility] Comment on above: Order Comment: Speci men Type: BLOOD SPECIMEN Ordering Facility: [facility] Address: [address] [place] [address] Performed By: #### 5 7021-8 #### [facility] CLIA [id number] [address] [place] [address] 81912 MCHC (RBC) [Mass/Vol] 34.5 g/dL Normal 30.5-36.0 [facility] Comment on above: Order Comment: Speci men Type: BLOOD SPECIMEN Ordering Facility: [facility] Address: [address] [place] [address] Performed By: #### 5 7021-8 #### [facility] CLIA [id number] [address] [place] [address] 07819 MCV (RBC) [Entitic vol] 83.5 fL Normal 80.0-100.0 [facility] Comment on above: Order Comment: Speci men Type: BLOOD SPECIMEN Ordering Facility: [facility] Address: [address] [place] [address] Performed By: #### 5 7021-8 #### [facility] CLIA [id number] [address] [place] [address] 48982 Monocytes (Bld) [#/Vol] 0.39 10*3/uL Normal <0.87 [facility] Comment on above: Order Comment: Speci men Type: BLOOD SPECIMEN Ordering Facility: [facility] Address: [address] [place] [address] Performed By: #### 5 7021-8 #### [facility] CLIA [id number] [address] [place] [address] 25710 Monocytes/100 WBC (Bld) 6.5 % Normal [facility] Comment on above: Order Comment: Speci men Type: BLOOD SPECIMEN Ordering Facility: [facility] Address: [address] [place] [address] Performed By: #### 5 7021-8 #### [facility] CLIA [id number] [address] [place] [address] 43730 Neutrophils (Bld) [#/Vol] 4.45 10*3/uL Normal 1.45-7.50 [facility] Comment on above: Order Comment: Speci men Type: BLOOD SPECIMEN Ordering Facility: [facility] Address: [address] [place] [address] Performed By: #### 5 7021-8 #### [facility] CLIA [id number] [address] [place] [address] 97750 Neutrophils/100 WBC (Bld) 74.0 % Normal [facility] Comment on above: Order Comment: Speci men Type: BLOOD SPECIMEN Ordering Facility: [facility] Address: [address] [place] [address] Performed By: #### 5 7021-8 #### [facility] CLIA [id number] [address] [place] [address] 83453 Nucleated RBC (Bld) [#/Vol] 10*3/uL Normal <0.01 [facility] Comment on above: Order Comment: Speci men Type: BLOOD SPECIMEN Ordering Facility: [facility] Address: [address] [place] [address] Performed By: #### 5 7021-8 #### [facility] CLIA [id number] [address] [place] [address] 49170 Nucleated RBC/100 WBC (Bld) [Ratio] 0.0 /100 WBC Normal [facility] Comment on above: Order Comment: Speci men Type: BLOOD SPECIMEN Ordering Facility: [facility] Address: [address] [place] [address] Performed By: #### 5 7021-8 #### [facility] CLIA [id number] [address] [place] [address] 98925 Platelet mean volume (Bld) [Entitic vol] 9.1 fL Normal 9.0-12.7 [facility] Comment on above: Order Comment: Speci men Type: BLOOD SPECIMEN Ordering Facility: [facility] Address: [address] [place] [address] Performed By: #### 5 7021-8 #### [facility] CLIA [id number] [address] [place] [address] 41765 Platelets (Bld) [#/Vol] 166 10*3/uL Normal 150-400 [facility] Comment on above: Order Comment: Speci men Type: BLOOD SPECIMEN Ordering Facility: [facility] Address: [address] [place] [address] Performed By: #### 5 7021-8 #### [facility] CLIA [id number] [address] [place] [address] 56991 RBC (Bld) [#/Vol] 4.72 10*6/uL Normal 4.20-6.00 [facility] Comment on above: Order Comment: Speci men Type: BLOOD SPECIMEN Ordering Facility: [facility] Address: [address] [place] [address] Performed By: #### 5 7021-8 #### [facility] CLIA [id number] [address] [place] [address] 07797 WBC (Bld) [#/Vol] 6.01 10*3/uL Normal 3.70-11.00 [facility] Comment on above: Order Comment: Speci men Type: BLOOD SPECIMEN Ordering Facility: [facility] Address: [address] [place] [address] Performed By: #### 5 7021-8 #### [facility] CLIA [id number] [address] [place] [address] CNOVSPon 08-21-2024 CNOVSP Visit (SP) Office (H EMASA) JUAN JOSE AUSTIN ([id number]) 1940 M Date Time Provider Department 08/21/24 9:40 AM CAESAR VAZQUEZ During your visit today, we recorded the following information about you: Temperature Pulse Respiration Blood pressure 97.2 degrees 64/minute 16/minute 149/75 Weight Height 73.8 kg 1.62 m YingrashidaJessica 08/21/2024 9:[address] CAP scans in 8 weeks Labs same day RTC in 9 weeks Caesar Vazquez MD 08/21/2024 11:17 AM Signed NAME: Juan Jose Austin CLINIC NO.: [id number] DATE OF SERVICE: August 21, 2024 (George) Some elements in this clinic note that are critical to medical decision making have been carefully reviewed and included from a prior clinic note dated: May 18, 2024 (George) Referring Provider: Dr. Galen Bhatt Additional Clinicians involved in Juan Jose Austin's care: Dr. Yoan Sneed (PCP), Dr. Galen Bhatt, Dr. Jian Rodriguez DIAGNOSIS: Upper urothelial tract carcinoma ASSESSMENT: 84 year old male with right solitary kidney [...] unrevealing. No evidence of pneumonitis on imaging. Recovering from IO induced diarrhea and continues on steroids for now. PLAN: CT CAP scans in 8 weeks Labs same day RTC in 9 weeks - HPI: CASE HISTORY: Reverse Chronological Order 07/10/2024 - EGD/Colonoscopy: with Dr. Jacob Tapia at [facility] Diverticulitis A. Duodenum, biopsy: - Duodenal mucosa with no significant histologic abnormality. B. Random colon, biopsy: - Quiescent colitis. - No evidence of activity, dysplasia or microscopic colitis. 06/29/2024 - CT CAP: Chest: Mild soft tissue prominence at the right hilum, stable. Correlation with continued follow-up examinations is recommended. Improved appearance to previously described right upper lobe groundglass opacities, as above. Additional bilateral subcentimeter pulmonary nodules, unchanged. Small sclerotic foci involving the lateral aspects of the left 6th and 7th ribs, unchanged. A/P: Stable CT examination the abdomen and pelvis as above. 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 Low-attenuation lesion in the posterior spleen which may represent small hemangioma. Evaluation is limited due to lack of IV contrast. Contrast excretion in the collecting system of the right kidney and activation in the urinary bladder from prior contrast administration. Lower thoracic and lumbar spondylosis with vascular calcification seen and no acute abdominal or pelvic pathology. No definite evidence of distended bowel or transition zone to suggest obstruction. 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 Given the imaging appearance and short-term development, these may be infectious/inflammatory in etiology. Therefore, would advise a shor (more content not included)... Normal [facility] Comprehensive metabolic 2000 panelon 08-21-2024 Albumin [Mass/Vol] 4.1 g/dL Normal 3.9-4.9 [facility] Comment on above: Order Comment: Speci men Type: BLOOD SPECIMENOrdering Facility: [facility] Address: [address] [place] [address] Performed By: #### 2 4323-8 ####[facility] [id number] [place] [address] ALP [Catalytic activity/Vol] 84 U/L Normal 38-113 [facility] Comment on above: Order Comment: Speci men Type: BLOOD SPECIMENOrdering Facility: [facility] Address: [address] [place] [address] Performed By: #### 2 4323-8 ####[facility] [id number] [place] [address] ALT [Catalytic activity/Vol] 20 U/L Normal 10-54 [facility] Comment on above: Order Comment: Speci men Type: BLOOD SPECIMENOrdering Facility: [facility] Address: [address] [place] [address] Performed By: #### 2 4323-8 ####[facility] [id number] [place] [address] Anion gap [Moles/Vol] 9 mmol/L Normal 8-15 [facility] Comment on above: Order Comment: Speci men Type: BLOOD SPECIMENOrdering Facility: [facility] Address: [address] [place] [address] Performed By: #### 2 4323-8 ####[facility] [id number] [place] [address] AST [Catalytic activity/Vol] 28 U/L Normal 14-40 [facility] Comment on above: Order Comment: Speci men Type: BLOOD SPECIMENOrdering Facility: [facility] Address: [address] [place], [place] [address] Performed By: #### 2 4323-8 ####[facility] [id number] [place] [address] Bilirubin [Mass/Vol] 0.6 mg/dL Normal 0.2-1.3 [facility] Comment on above: Order Comment: Speci men Type: BLOOD SPECIMENOrdering Facility: [facility] Address: [address] [place] [address] Performed By: #### 2 4323-8 ####[facility] [id number] [facility] [place] [address] Calcium [Mass/Vol] 8.9 mg/dL Normal 8.5-10.2 [facility] Comment on above: Order Comment: Speci men Type: BLOOD SPECIMENOrdering Facility: [facility] Address: [address] [place] [address] Performed By: #### 2 4323-8 ####[facility] [id number] [place] [address] Chloride [Moles/Vol] 106 mmol/L Normal 98-107 [facility] Comment on above: Order Comment: Speci men Type: BLOOD SPECIMENOrdering Facility: [facility] Address: [address] [place] [address] Performed By: #### 2 4323-8 ####[facility] [id number] [place] [address] CO2 [Moles/Vol] 26 mmol/L Normal 22-30 [facility] Comment on above: Order Comment: Speci men Type: BLOOD SPECIMENOrdering Facility: [facility] Address: [address] [place] [address] Performed By: #### 2 4323-8 ####[facility] [id number] [place] [address] Creatinine [Mass/Vol] 1.72 mg/dL High 0.73-1.22 [facility] Comment on above: Order Comment: Speci men Type: BLOOD SPECIMENOrdering Facility: [facility] Address: [address] [place] [address] Performed By: #### 2 4323-8 ####[facility] [id number] [place] [address] Creatinine and Glomerular filtration rate.predicted panel (S/P/Bld) 38 mL/min/1.73m??? Low >=60 [facility] Comment on above: Order Comment: Speci men Type: BLOOD SPECIMENOrdering Facility: [facility] Address: [address] [place] [address] Result Comment: Viviana mated Glomerular Filtration Rate (eGFR) is calculated using the 2021 CKD-EPI creatinine equation. This equation utilizes serum creatinine, sex, and age as parameters. The creatinine assay has traceable calibration to isotope dilution-mass spectrometry. Refer to KDIGO guidelines for clinical interpretation. In patients with unstable renal function, e.g. those with acute kidney injury, the eGFR may not accurately reflect actual GFR. Performed By: #### 2 4323-8 ####[facility] [id number] [place] [address] Glucose [Mass/Vol] 102 mg/dL High 74-99 [facility] Comment on above: Order Comment: Speci men Type: BLOOD SPECIMENOrdering Facility: [facility] Address: [address] [place] [address] Result Comment: The [place] Diabetes Association (ADA) provides guidance for cutoff values for fasting glucose and random glucose. The ADA defines fasting as no caloric intake for at least 8 hours. Fasting plasma glucose results between 100 to 125 mg/dL indicate increased risk for diabetes (prediabetes). Fasting plasma glucose results greater than or equal to 126 mg/dL meet the criteria for diagnosis of diabetes. In the absence of unequivocal hyperglycemia, results should be confirmed by repeat testing. In a patient with classic symptoms of hyperglycemia or hyperglycemic crisis, random plasma glucose results greater than or equal to 200 mg/dL meet the criteria for diagnosis of diabetes. Reference: Standards of Medical Care in Diabetes 2016, [place] Diabetes Association. Diabetes Care. 2016.39(Suppl 1). Performed By: #### 2 4323-8 ####[facility] [id number] [place] [address] Potassium [Moles/Vol] 4.6 mmol/L Normal 3.7-5.1 [facility] Comment on above: Order Comment: Speci men Type: BLOOD SPECIMENOrdering Facility: [facility] Address: [address] [place] [address] Performed By: #### 2 4323-8 ####[facility] [id number] [place] [address] Protein [Mass/Vol] 6.1 g/dL Low 6.3-8.0 [facility] Comment on above: Order Comment: Speci men Type: BLOOD SPECIMENOrdering Facility: [facility] Address: [address] [place] [address] Performed By: #### 2 4323-8 ####[facility] [id number] [place] [address] Sodium [Moles/Vol] 141 mmol/L Normal 136-144 [facility] Comment on above: Order Comment: Speci men Type: BLOOD SPECIMENOrdering Facility: [facility] Address: [address] [place] [address] Performed By: #### 2 4323-8 ####[facility] [id number] [place] [address] Urea nitrogen [Mass/Vol] 34 mg/dL High 9-24 [facility] Comment on above: Order Comment: Speci men Type: BLOOD SPECIMENOrdering Facility: [facility] Address: [address] [place] [address] Performed By: #### 2 4323-8 ####[facility]CLIA [id number] [place] [address] Beverly Keisha-Ricaon 08-21-20 24 Cortisol [Mass/Vol] 6.0 ug/dL Normal 4.8-19.5 [facility] Comment on above: Order Comment: Speci men Type: BLOOD SPECIMENOrdering Facility: [facility] Address: [address] [place] [address] Result Comment: Prov ided reference range is from 6-10 AM sample collection time. Cortisol Reference Range: 6-10 AM = 4.8-19.5 ug/dL, 4-8 PM = 2.5-11.9 ug/dL Performed By: #### 3 016-3, 2143-6 ####[facility]CLIA [id number] [place] [address] [place] HbA1c (Bld)on 08-21-2024 Average glucose Estimated from glycated hemoglobin (Bld) [Mass/Vol] 97 mg/dL Normal [facility] Comment on above: Order Comment: Vero barton Type: BLOOD SPECIMENOrdering Facility: [facility] Address: [address] [place] [address] Result Comment: eAG: (Estimated average glucose) is a calculated value from HgbA1c and is medical device sales representative of the average blood glucose level in the last 2-3 month period. Performed By: #### 5 5454-3 ####[facility]CLIA [id number] [place] [address] [place] HbA1c (Bld) [Mass fraction] 5.0 % Normal 4.3-5.6 [facility] Comment on above: Order Comment: Vero barton Type: BLOOD SPECIMENOrdering Facility: [facility] Address: [address] [place] [address] Result Comment: [place] Diabetes Association guidelines indicate that patients with HgbA1c in the range 5.7-6.4% are at increased risk for development of diabetes, and intervention by lifestyle modification may be beneficial. HgbA1c greater or equal to 6.5% is considered diagnostic of diabetes. Performed By: #### 5 5454-3 ####[facility]CLIA [id number] [place] [address] [place] TSH SerPl-aCncon 08-21-2024 TSH Qn 2.260 m[IU]/L Normal 0.270-4.20 0 [facility] Comment on above: Order Comment: Vero barton Type: BLOOD SPECIMENOrdering Facility: [facility] Address: [address] [place] [address] Performed By: #### 3 016-3, 2143-6 ####[facility]CLIA [id number] [place] [address] [place] 36on 07-21-2024 36 Left message to see if patient would like to schedule a follow up appt with Dr. Tapia for unintentional weight loss and diarrhea, hx of UC and recently scoped. Left clinic number for patient to call to schedule. Normal [facility] HISTOLOGY - TISSUE EXAMon LAB AP CASE REPORT Normal Stiven moran [facility] Comment on above: Result Comment: Surg ical Pathology Case: [id number] Authorizing Provider: Jacob Tapia MD Collected: 07/10/2024 1333 Ordering Location: [facility] Received: 07/10/2024 [facility] Pathologist: Kimmy Gonsalez MD Specimens: A) - Small Intestine, Duodenum, Duodenum bx r/o Celiac and Duodenitis B) - Large Intestine, Random Colon bx r/o Microscopic Colitis Performed By: #### L [id number] ####[facility] (BEAKER)[address] [place] [address] LAB AP CLINICAL INFORMATION Order Diagnoses Normal [facility] Comment on above: Result Comment: K51. 911 - Ulcerative colitis with rectal bleeding, unspecified location (CMS/HCC) [ICD-10-CM] K21.9 - Gastroesophageal reflux disease, unspecified whether esophagitis present [ICD-10-CM] Z12.11 - Screen for colon cancer [ICD-10-CM] Performed By: #### L [id number] ####[facility] ([facility]AKER)[address] [place] [address] LAB AP GROSS DESCRIPTION Normal [facility] Comment on above: Result Comment: A. S mall Intestine, Duodenum. Received in formalin labeled Juan Jose B Austin, Duodenum bx r/o Celiac and Duodenitis, are 5 pieces of jimenez irregular mucosal tissue ranging from 0.2 cm to 0.4 cm in greatest dimension. The specimen is submitted in toto in 1 cassette. Kelya [employer] Marketing Analyst Student B. Large Intestine. Received in formalin labeled Juan Jose B Austin, Random Colon bx r/o Microscopic Colitis, are multiple pieces of jimenez, irregular mucosal tissue ranging from 0.1 cm to 0.4 cm in greatest dimension. The specimen is submitted in toto in 1 cassette. Richardson Gilbert, Pathologists' [employer] Marketing Analyst Student Performed By: #### L [id number] ####[facility] (BEAKER)[address] [place] [address] LAB AP MICROSCOPIC DESCRIPTION Microscopic examination performed. Normal [facility] Comment on above: Performed By: #### L [id number] ####[facility] ([facility])[address] [place] [address] LAB AP REPORT FINAL DIAGNOSIS NARRATIVE Normal [facility] Comment on above: Result Comment: A. D uodenum, biopsy: - Duodenal mucosa with no significant histologic abnormality. B. Random colon, biopsy: - Quiescent colitis. - No evidence of activity, dysplasia or microscopic colitis. Performed By: #### L [id number] ####[facility] ([facility])[address] [place] [address] HPon 07-10-2024 HP H&P reviewed. The sakina magdaleno was examined and there are no changes to the H&P. 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 Will proceed due to hx of UC and need for screening. Normal [facility] NURSNOTEon 07-10-2024 NURSNOTE Follow up at [facility] with Padmini Reyes CNP for biopsy results in 2-4 weeks. Repeat colonoscopy only as needed. May resume a Regular Diet and home medications. Normal [facility] NURSNOTE Colonoscopy Findings : Diverticulosis Normal [facility] NURSNOTE EGD Findings: Normal exam Normal [facility] POCT GLUCOSE METER UNSOLICIT ED RESULTSon 07-10-2024 Glucose [Mass/Vol] 86 mg/dL Normal 70-105 [facility] Comment on above: Order Comment: Waive d Testing in the ED is performed under the ED CLIA certificate #[id number]. Result Comment: [address] Performed By: #### L [id number] #### [facility] ([facility]) [address] [place] [address] Prep for Procedureon 024 Prep for Procedure [id number] Juan Jose Austin 1940 M Date Provider Department Center 07/10/2024 JACOB BROUSSARD [facility] Family History Problem Relation Age of Onset Heart failure Mother Lung cancer Father Family Status - Relation Status Age at Mother Father Normal [facility] Prep for Procedure [id number] Juan Jose Austin 1940 M Date Provider Department Center 07/10/2024 Louann-ANIBAL MONTAGUE [facility] Family History Problem Relation Age of Onset Heart failure Mother Lung cancer Father Family Status - Relation Status Age at Mother Father Normal [facility] CT ABD/PEL W IVCONon 024 CT ABD/PEL W IVCON * * *Final Report* * * DATE OF EXAM: Jun 29 2024 9:00AM [facility] 0530 - CT ABD/PEL W IVCON / PROCEDURE REASON: multiple diagnoses * * * * Physician Interpretation * * * * RESULT: EXAMINATION: CT ABDOMEN AND PELVIS WITH IV CONTRAST CLINICAL HISTORY: Malignant neoplasm of bladder TECHNIQUE: CT of the abdomen and pelvis was performed using standard technique, scanning from just above the dome of the diaphragm to the symphysis pubis. MQ: CTAP_3 Contrast: IV: 100 ml of Omnipaque 350 Oral: 500 ml of Omni 240 10-25ml diluted with water CT Radiation dose: Integrated Dose-length product (DLP) for this visit = 846 mGy*cm. CT Dose Reduction Employed: Automated exposure control (AEC) COMPARISON: 01/24/2024 RESULT: Liver: Small foci of decreased attenuation adjacent to the falciform ligament and gallbladder fossa, stable, likely related to areas of focal fatty deposition. Subtle subcentimeter foci of enhancement at the dome, images 13 and 19, series 3, stable, likely related to perfusion phenomenon or atypical hemangiomata, stable. Biliary Tract: No bile duct dilation. The gallbladder appears unremarkable. Spleen: No splenomegaly. 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 Pancreas: No mass or ductal dilatation. Adrenal glands: No mass. Nodular thickening to the right adrenal gland, stable. Kidneys: No enhancing mass or hydronephrosis involving the right kidney. Subcentimeter hypodensities, stable, likely related to cysts. The left kidney is surgically absent. Subcentimeter nodularity along the anterior aspect of the right renal fossa, unchanged. GI Tract: No bowel wall thickening or dilation. Scattered diverticula within sigmoid colon are again appreciated, without CT evidence for acute diverticulitis. Lymph nodes: Subcentimeter retroperitoneal lymph nodes, stable. No substantial mesenteric, retroperitoneal, or pelvic lymphadenopathy is appreciated. Mesentery/Peritoneum: No ascites. Stable surgical clips within the left midabdomen, adjacent area of encapsulated fat, compatible with fat necrosis, unchanged. Retroperitoneum: No mass. Vasculature: - Abdominal aorta and iliac arteries: Atherosclerotic calcifications without aneurysm. - Celiac and SMA: Patent. - Portal venous system (SMV, splenic vein, portal vein and branches): Patent. - Hepatic veins: Patent. Pelvis: No free fluid or pelvic mass. Heterogeneous enhancement of the prostate gland, stable. Mild, diffuse bladder wall thickening and uroepithelial enhancement, unchanged. Bones/Soft Tissues: Degenerative change within the lumbar spine. No osseous destructive process is appreciated. Lower Thorax: A CT examination of the chest has been performed concurrently and will be dictated separately. Control Valve Technician (topogram) images: No additional findings. IMPRESSION: Stable CT examination the abdomen and pelvis as above. Transcribe Date/Time: Jun 29 2024 9:57A Dictated by: BREANNA JOHNSON MD This examination was interpreted and the report reviewed and electronically signed by: BREANNA JOHNSON MD on Jun 29 2024 10:21AM EST Thank you for allowing us to participate in the care of your patient. Should there be any questions regarding this interpretation, please call [phone]. If you are unable to reach us at the number above, please feel free to contact [facility] at [phone]. [id number] Normal [facility] CT Abdomen and Pelvis W cont rast [place] 06-29-2024 IMPRESSION: Stable CT examination the abdomen and pelvis as above. Transcribe Date/Time: Jun 29 2024 9:57A Dictated by: BREANNA JOHNSON MD This examination was interpreted and the report reviewed and electronically signed by: BREANNA JOHNSON MD on Jun 29 2024 10:21AM EST Thank you for allowing us to participate in the care of your patient. Should there be any questions regarding this interpretation, please call [phone]. If you are unable to reach us at the number above, please feel free to contact [facility] at [phone]. DIVISION OF RADIOLOGY * * *Final Report* * * DATE OF EXAM: Jun 29 2024 9:00AM [facility] 0530 - CT ABD/PEL W IVCON / PROCEDURE REASON: multiple diagnoses * * * * Physician Interpretation * * * * RESULT: EXAMINATION: CT ABDOMEN AND PELVIS WITH IV CONTRAST CLINICAL HISTORY: Malignant neoplasm of bladder TECHNIQUE: CT of the abdomen and pelvis was performed using standard technique, scanning from just above the dome of the diaphragm to the symphysis pubis. MQ: CTAP_3 Contrast: IV: 100 ml of Omnipaque 350 Oral: 500 ml of Omni 240 10-25ml diluted with water CT Radiation dose: Integrated Dose-length product (DLP) for this visit = 846 mGy*cm. CT Dose Reduction Employed: Automated exposure control (AEC) COMPARISON: 01/24/2024 RESULT: Liver: Small foci of decreased attenuation adjacent to the falciform ligament and gallbladder fossa, stable, likely related to areas of focal fatty deposition. Subtle subcentimeter foci of enhancement at the dome, images 13 and 19, series 3, stable, likely related to perfusion phenomenon or atypical hemangiomata, stable. Biliary Tract: No bile duct dilation. The gallbladder appears unremarkable. Spleen: No splenomegaly. 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 Pancreas: No mass or ductal dilatation. Adrenal glands: No mass. Nodular thickening to the right adrenal gland, stable. Kidneys: No enhancing mass or hydronephrosis involving the right kidney. Subcentimeter hypodensities, stable, likely related to cysts. The left kidney is surgically absent. Subcentimeter nodularity along the anterior aspect of the right renal fossa, unchanged. GI Tract: No bowel wall thickening or dilation. Scattered diverticula within sigmoid colon are again appreciated, without CT evidence for acute diverticulitis. Lymph nodes: Subcentimeter retroperitoneal lymph nodes, stable. No substantial mesenteric, retroperitoneal, or pelvic lymphadenopathy is appreciated. Mesentery/Peritoneum: No ascites. Stable surgical clips within the left midabdomen, adjacent area of encapsulated fat, compatible with fat necrosis, unchanged. Retroperitoneum: No mass. Vasculature: - Abdominal aorta and iliac arteries: Atherosclerotic calcifications without aneurysm. - Celiac and SMA: Patent. - Portal venous system (SMV, splenic vein, portal vein and branches): Patent. - Hepatic veins: Patent. Pelvis: No free fluid or pelvic mass. Heterogeneous enhancement of the prostate gland, stable. Mild, diffuse bladder wall thickening and uroepithelial enhancement, unchanged. Bones/Soft Tissues: Degenerative change within the lumbar spine. No osseous destructive process is appreciated. Lower Thorax: A CT examination of the chest has been performed concurrently and will be dictated separately. Control Valve Technician (topogram) images: No additional findings. DIVISION OF RADIOLOGY Provider, [facility] - 06/29/2024 * * *Final Report* * * DATE OF EXAM: Jun 29 2024 9:00AM [facility] 0530 - CT ABD/PEL W IVCON / PROCEDURE REASON: multiple diagnoses * * * * Physician Interpretation * * * * RESULT: EXAMINATION: CT ABDOMEN AND PELVIS WITH IV CONTRAST CLINICAL HISTORY: Malignant neoplasm of bladder TECHNIQUE: CT of the abdomen and pelvis was performed using standard technique, scanning from just above the dome of the diaphragm to the symphysis pubis. MQ: CTAP_3 Contrast: IV: 100 ml of Omnipaque 350 Oral: 500 ml of Omni 240 10-25ml diluted with water CT Radiation dose: Integrated Dose-length product (DLP) for this visit = 846 mGy*cm. CT Dose Reduction Employed: Automated exposure control (AEC) COMPARISON: 01/24/2024 RESULT: Liver: Small foci of decreased attenuation adjacent to the falciform ligament and gallbladder fossa, stable, likely related to areas of focal fatty deposition. Subtle subcentimeter foci of enhancement at the dome, images 13 and 19, series 3, stable, likely related to perfusion phenomenon or atypical hemangiomata, stable. Biliary Tract: No bile duct dilation. The gallbladder appears unremarkable. Spleen: No splenomegaly. 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 Pancreas: No mass or ductal dilatation. Adrenal glands: No mass. Nodular thickening to the right adrenal gland, stable. Kidneys: No enhancing mass or hydronephrosis involving the right kidney. Subcentimeter hypodensities, stable, likely related to cysts. The left kidney is surgically absent. Subcentimeter nodularity along the anterior aspect of the right renal fossa, unchanged. GI Tract: No bowel wall thickening or dilation. Scattered diverticula within sigmoid colon are again appreciated, without CT evidence for acute diverticulitis. Lymph nodes: Subcentimeter retroperitoneal lymph nodes, stable. No substantial mesenteric, retroperitoneal, or pelvic lymphadenopathy is appreciated. Mesentery/Peritoneum: No ascites. Stable surgical clips within the left midabdomen, adjacent area of encapsulated fat, compatible with fat necrosis, unchanged. Retroperitoneum: No mass. Vasculature: - Abdominal aorta and iliac arteries: Atherosclerotic calcifications without aneurysm. - Celiac and SMA: Patent. - Portal venous system (SMV, splenic vein, portal vein and branches): Patent. - Hepatic veins: Patent. Pelvis: No free fluid or pelvic mass. Heterogeneous enhancement of the prostate gland, stable. Mild, diffuse bladder wall thickening and uroepithelial enhancement, unchanged. Bones/Soft Tissues: Degenerative change within the lumbar spine. No osseous destructive process is appreciated. Lower Thorax: A CT examination of the chest has been performed concurrently and will be dictated separately. Control Valve Technician (topogram) images: No additional findings. IMPRESSION IMPRESSION: Stable CT examination the abdomen and pelvis as above. Transcribe Date/Time: Jun 29 2024 9:57A Dictated by: BREANNA JOHNSON MD This examination was interpreted and the report reviewed and electronically signed by: BREANNA JOHNSON MD on Jun 29 2024 10:21AM EST Thank you for allowing us to participate in the care of your patient. Should there be any questions regarding this interpretation, please call [phone]. If you are unable to reach us at the number above, please feel free to contact [facility] at [phone]. [facility] CT CHEST W IVCONon 4 CT CHEST W IVCON * * *Final Report* * * DATE OF EXAM: Jun 29 2024 9:00AM [facility] 0539 - CT CHEST W IVCON / PROCEDURE REASON: multiple diagnoses * * * * Physician Interpretation * * * * RESULT: EXAMINATION: CHEST CT WITH CONTRAST CLINICAL HISTORY: Bladder carcinoma Technique: Spiral CT acquisition of the chest from the thoracic inlet to the upper abdomen following IV contrast. MQ: CTCW_6 Contrast: 100 mL Omnipaque [address] Radiation dose: Integrated Dose-length product (DLP) for this visit = 846 mGy*cm CT Dose Reduction Employed: Automated exposure control (AEC) Comparison: CT chest 01/24/2024 RESULT: Limitations: None. Lines, tubes, and devices: Left-sided pacer device remains in place. Lung parenchyma , airways, and pleural space: No consolidative process or pleural effusion is appreciated. Subpleural atelectasis/scarring within the right middle lobe and right lower lobe is again appreciated. The trachea and major airways appear patent. Previously identified right upper lobe groundglass opacities have resolved. 2-3 mm right upper lobe nodule, image 72, series 4, stable. 3 mm right upper lobe no nodules, images 82 and 83, series 4, stable. 2 mm subpleural right lower lobe nodule, image 108, series 4, stable. 2 mm left upper lobe nodule, image 73, series 4, stable. Lower neck, lymph nodes, and mediastinum: The visualized thyroid gland is stable. No substantial supraclavicular or axillary lymphadenopathy is identified. Scattered subcentimeter mediastinal lymph nodes are appreciated, none of which were pathologically enlarged, stable. Right hilar soft tissue prominence measuring approximately 1.6 x 1.4 cm, stable. Minimal soft tissue prominence at the left infrahilar region, unchanged. Heart, pericardium, and thoracic vessels: The thoracic aorta is normal in caliber. Coronary calcification is noted. No substantial pericardial effusion is identified. Bones/Soft Tissues: Degenerative change within the thoracic spine is noted. No osseous destructive process is identified. Sclerotic foci involving the lateral aspects of the left 6th and 7th ribs, unchanged. Small sclerotic focus involving the inferior right scapula, stable. Upper Abdomen: A CT examination of the abdomen has been performed concurrently and will be dictated separately. Control Valve Technician (topogram) images: No additional findings. IMPRESSION: 1. Mild soft tissue prominence at the right hilum, stable. Correlation with continued follow-up examinations is recommended 2. Improved appearance to previously described right upper lobe groundglass opacities, as above. 3. Additional bilateral subcentimeter pulmonary nodules, unchanged. 4. Small sclerotic foci involving the lateral aspects of the left 6th and 7th ribs, unchanged. Transcribe Date/Time: Jun 29 2024 9:43A Dictated by: BREANNA JOHNSON MD This examination was interpreted and the report reviewed and electronically signed by: BREANNA JOHNSON MD on Jun 29 2024 10:21AM EST Thank you for allowing us to participate in the care of your patient. Should there be any questions regarding this interpretation, please call [phone]. If you are unable to reach us at the number above, please feel free to contact [facility] at [phone]. [id number] Normal [facility] CT Chest W contrast [place] IMPRESSION: 1. Mild soft tissue prominence at the right hilum, stable. Correlation with continued follow-up examinations is recommended 2. Improved appearance to previously described right upper lobe groundglass opacities, as above. 3. Additional bilateral subcentimeter pulmonary nodules, unchanged. 4. Small sclerotic foci involving the lateral aspects of the left 6th and 7th ribs, unchanged. Transcribe Date/Time: Jun 29 2024 9:43A Dictated by: BREANNA JOHNSON MD This examination was interpreted and the report reviewed and electronically signed by: BREANNA JOHNSON MD on Jun 29 2024 10:21AM EST Thank you for allowing us to participate in the care of your patient. Should there be any questions regarding this interpretation, please call [phone]. If you are unable to reach us at the number above, please feel [facility] at [phone]. DIVISION OF RADIOLOGY * * *Final Report* * * DATE OF EXAM: Jun 29 2024 9:00AM [facility] 0539 - CT CHEST W IVCON / PROCEDURE REASON: multiple diagnoses * * * * Physician Interpretation * * * * RESULT: EXAMINATION: CHEST CT WITH CONTRAST CLINICAL HISTORY: Bladder carcinoma Technique: Spiral CT acquisition of the chest from the thoracic inlet to the upper abdomen following IV contrast. MQ: CTCW_6 Contrast: 100 mL Omnipaque [address] Radiation dose: Integrated Dose-length product (DLP) for this visit = 846 mGy*cm CT Dose Reduction Employed: Automated exposure control (AEC) Comparison: CT chest 01/24/2024 RESULT: Limitations: None. Lines, tubes, and devices: Left-sided pacer device remains in place. Lung parenchyma , airways, and pleural space: No consolidative process or pleural effusion is appreciated. Subpleural atelectasis/scarring within the right middle lobe and right lower lobe is again appreciated. The trachea and major airways appear patent. Previously identified right upper lobe groundglass opacities have resolved. 2-3 mm right upper lobe nodule, image 72, series 4, stable. 3 mm right upper lobe no nodules, images 82 and 83, series 4, stable. 2 mm subpleural right lower lobe nodule, image 108, series 4, stable. 2 mm left upper lobe nodule, image 73, series 4, stable. Lower neck, lymph nodes, and mediastinum: The visualized thyroid gland is stable. No substantial supraclavicular or axillary lymphadenopathy is identified. Scattered subcentimeter mediastinal lymph nodes are appreciated, none of which were pathologically enlarged, stable. Right hilar soft tissue prominence measuring approximately 1.6 x 1.4 cm, stable. Minimal soft tissue prominence at the left infrahilar region, unchanged. Heart, pericardium, and thoracic vessels: The thoracic aorta is normal in caliber. Coronary calcification is noted. No substantial pericardial effusion is identified. Bones/Soft Tissues: Degenerative change within the thoracic spine is noted. No osseous destructive process is identified. Sclerotic foci involving the lateral aspects of the left 6th and 7th ribs, unchanged. Small sclerotic focus involving the inferior right scapula, stable. Upper Abdomen: A CT examination of the abdomen has been performed concurrently and will be dictated separately. Control Valve Technician (topogram) images: No additional findings. DIVISION OF RADIOLOGY Provider, [facility] - 06/29/2024 * * *Final Report* * * DATE OF EXAM: Jun 29 2024 9:00AM [facility] 0539 - CT CHEST W IVCON / PROCEDURE REASON: multiple diagnoses * * * * Physician Interpretation * * * * RESULT: EXAMINATION: CHEST CT WITH CONTRAST CLINICAL HISTORY: Bladder carcinoma Technique: Spiral CT acquisition of the chest from the thoracic inlet to the upper abdomen following IV contrast. MQ: CTCW_6 Contrast: 100 mL Omnipaque [address] Radiation dose: Integrated Dose-length product (DLP) for this visit = 846 mGy*cm CT Dose Reduction Employed: Automated exposure control (AEC) Comparison: CT chest 01/24/2024 RESULT: Limitations: None. Lines, tubes, and devices: Left-sided pacer device remains in place. Lung parenchyma , airways, and pleural space: No consolidative process or pleural effusion is appreciated. Subpleural atelectasis/scarring within the right middle lobe and right lower lobe is again appreciated. The trachea and major airways appear patent. Previously identified right upper lobe groundglass opacities have resolved. 2-3 mm right upper lobe nodule, image 72, series 4, stable. 3 mm right upper lobe no nodules, images 82 and 83, series 4, stable. 2 mm subpleural right lower lobe nodule, image 108, series 4, stable. 2 mm left upper lobe nodule, image 73, series 4, stable. Lower neck, lymph nodes, and mediastinum: The visualized thyroid gland is stable. No substantial supraclavicular or axillary lymphadenopathy is identified. Scattered subcentimeter mediastinal lymph nodes are appreciated, none of which were pathologically enlarged, stable. Right hilar soft tissue prominence measuring approximately 1.6 x 1.4 cm, stable. Minimal soft tissue prominence at the left infrahilar region, unchanged. Heart, pericardium, and thoracic vessels: The thoracic aorta is normal in caliber. Coronary calcification is noted. No substantial pericardial effusion is identified. Bones/Soft Tissues: Degenerative change within the thoracic spine is noted. No osseous destructive process is identified. Sclerotic foci involving the lateral aspects of the left 6th and 7th ribs, unchanged. Small sclerotic focus involving the inferior right scapula, stable. Upper Abdomen: A CT examination of the abdomen has been performed concurrently and will be dictated separately. Control Valve Technician (topogram) images: No additional findings. IMPRESSION IMPRESSION: 1. Mild soft tissue prominence at the right hilum, stable. Correlation with continued follow-up examinations is recommended 2. Improved appearance to previously described right upper lobe groundglass opacities, as above. 3. Additional bilateral subcentimeter pulmonary nodules, unchanged. 4. Small sclerotic foci involving the lateral aspects of the left 6th and 7th ribs, unchanged. Transcribe Date/Time: Jun 29 2024 9:43A Dictated by: BREANNA JOHNSON MD This examination was interpreted and the report reviewed and electronically signed by: BREANNA JOHNSON MD on Jun 29 2024 10:21AM EST Thank you for allowing us to participate in the care of your patient. Should there be any questions regarding this interpretation, please call [phone]. If you are unable to reach us at the number above, please feel free to contact [facility] at [phone]. [facility] No Panel InformationOrdered By: [facility] Provider on 06-29-2024 [facility] No Panel Informationon 06-29 Radiology Study observation (narrative) [facility] CNOVSPon 05-18-2024 CNOVSP Visit (SP) Office (H EMASA) GEOVANNAJUAN JOSE ([id number]) 1940 M Date Time Provider Department 05/18/24 1:00 PM CAESAR VAZQUEZ During your visit today, we recorded the following information about you: Temperature Pulse Respiration Blood pressure 97.1 degrees 66/minute 16/minute 121/63 Weight Height 68.7 kg 1.62 m Caesar Vazquez MD 05/19/2024 11:18 AM Signed NAME: Lyubov Austino [facility] NO.: [id number] DATE OF SERVICE: May 18, 2024 (George) Some elements in this clinic note that are critical to medical decision making have been carefully reviewed and included from a prior clinic note dated: December 20, 2023 (Wero) Referring Provider: Dr. Galen Bhatt Additional Clinicians involved in Juan Joseadalberto Austin's care: Dr. Yoan Sneed (PCP), Dr. Galen Bhatt, Dr. Jian Rodriguez DIAGNOSIS: Upper urothelial tract carcinoma ASSESSMENT: 84 year old male with right solitary kidney [...] unrevealing. No evidence of pneumonitis on imaging. Recovering from IO induced diarrhea and continues on steroids for now. 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 Low-attenuation lesion in the posterior spleen which may represent small hemangioma. Evaluation is limited due to lack of IV contrast. Contrast excretion in the collecting system of the right kidney and activation in the urinary bladder from prior contrast administration. Lower thoracic and lumbar spondylosis with vascular calcification seen and no acute abdominal or pelvic pathology. No definite evidence of distended bowel or transition zone to suggest obstruction. 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 Given the imaging appearance and short-term development, these may be infectious/inflammatory in etiology. Therefore, would advise a short-term follow-up chest CT without contrast in 6-8 weeks to reevaluate the opacities. Stable subcentimeter solid pulmonary nodules. No significant thoracic adenopathy. A/P: Stable appearance of geographic area of hypodensity adjacent to the falciform ligament of the liver which may represent focal fatty infiltration. There is also a stable 6 mm hypervascular focus within the subcapsular dome of segment 8 of the liver which may represent a perfusion anomaly or small vascular anomaly. Stable splenic lesions which are nonspecific on cross-sectional imaging but have been present since 2020. The largest lesion is hypervascular and may represent a hemangioma. The stability is reassuring. Diffuse anasarca as well as a small volume of free fluid in the lower abdomen/pelvis. This is (more content not included)... Normal [facility] Comprehensive metabolic 2000 panelon 05-18-2024 Albumin [Mass/Vol] 4.1 g/dL Normal 3.9-4.9 [facility] Comment on above: Order Comment: Speci men Type: BLOOD SPECIMENOrdering Facility: [facility] Address: [address] [place] [address] Performed By: #### 2 4323-8 ####[facility] LABCLIA [id number] [place] [address] ALP [Catalytic activity/Vol] 109 U/L Normal 38-113 [facility] Comment on above: Order Comment: Speci men Type: BLOOD SPECIMENOrdering Facility: [facility] Address: [address] [place], [place] [address] Performed By: #### 2 4323-8 ####[facility] LABCLIA [id number] [place] [address] ALT [Catalytic activity/Vol] 34 U/L Normal 10-54 [facility] Comment on above: Order Comment: Speci men Type: BLOOD SPECIMENOrdering Facility: [facility] Address: [address] [place], [place] [address] Performed By: #### 2 4323-8 ####[facility] LABCLIA [id number] [place] [address] Anion gap [Moles/Vol] 9 mmol/L Normal 8-15 [facility] Comment on above: Order Comment: Speci men Type: BLOOD SPECIMENOrdering Facility: [facility] Address: [address] [place], [place] [address] Performed By: #### 2 4323-8 ####[facility] LABCLIA [id number] [place] [address] AST [Catalytic activity/Vol] 33 U/L Normal 14-40 [facility] Comment on above: Order Comment: Speci men Type: BLOOD SPECIMENOrdering Facility: [facility] Address: [address] [place] [address] Performed By: #### 2 4323-8 ####[facility] LABCLIA [id number] [place] [address] Bilirubin [Mass/Vol] 0.7 mg/dL Normal 0.2-1.3 [facility] Comment on above: Order Comment: Speci men Type: BLOOD SPECIMENOrdering Facility: [facility] Address: [address] [place], [place] [address] Performed By: #### 2 4323-8 ####[facility] LABCLIA [id number] [place] [address] Calcium [Mass/Vol] 9.4 mg/dL Normal 8.5-10.2 [facility] Comment on above: Order Comment: Speci men Type: BLOOD SPECIMENOrdering Facility: [facility] Address: [address] [place], [place] [address] Performed By: #### 2 4323-8 ####[facility] LABCLIA [id number] [place] [address] Chloride [Moles/Vol] 110 mmol/L High 98-107 [facility] Comment on above: Order Comment: Speci men Type: BLOOD SPECIMENOrdering Facility: [facility] Address: [address] [place] [address] Performed By: #### 2 4323-8 ####[facility] LABCLIA [id number] [place] [address] CO2 [Moles/Vol] 27 mmol/L Normal 22-30 [facility] Comment on above: Order Comment: Speci men Type: BLOOD SPECIMENOrdering Facility: [facility] Address: [address] [place] [address] Performed By: #### 2 4323-8 ####[facility] LABCLIA [id number] [place] [address] Creatinine [Mass/Vol] 1.89 mg/dL High 0.73-1.22 [facility] Comment on above: Order Comment: Speci men Type: BLOOD SPECIMENOrdering Facility: [facility] Address: [address] [place] [address] Performed By: #### 2 4323-8 ####[facility] LABCLIA [id number] [place] [address] Creatinine and Glomerular filtration rate.predicted panel (S/P/Bld) 34 mL/min/1.73m??? Low >=60 [facility] Comment on above: Order Comment: Speci men Type: BLOOD SPECIMENOrdering Facility: [facility] Address: [address] [place] [address] Result Comment: Viviana mated Glomerular Filtration Rate [...] actual GFR. Performed By: #### 2 4323-8 ####[facility] LABCLIA [id number] [place] [address] Glucose [Mass/Vol] 111 mg/dL High 74-99 [facility] Comment on above: Order Comment: Speci men Type: BLOOD SPECIMENOrdering Facility: [facility] Address: [address] [place], [place] [address] Result Comment: The [place] [employer] (ADA) provides guidance for cutoff values for fasting glucose and random glucose. The ADA defines fasting as no caloric intake for at least 8 hours. Fasting plasma glucose results between 100 to 125 mg/dL indicate increased risk for diabetes (prediabetes). Fasting plasma glucose results greater than or equal to 126 mg/dL meet the criteria for diagnosis of diabetes. In the absence of unequivocal hyperglycemia, results should be confirmed by repeat testing. In a patient with classic symptoms of hyperglycemia or hyperglycemic crisis, random plasma glucose results greater than or equal to 200 mg/dL meet the criteria for diagnosis of diabetes. Reference: Standards of Medical Care in Diabetes 2016, [place] [employer]. Diabetes Care. 2016.39(Suppl 1). Performed By: #### 2 4323-8 ####[facility] LABCLIA [id number] [place] [address] Potassium [Moles/Vol] 4.5 mmol/L Normal 3.7-5.1 [facility] Comment on above: Order Comment: Speci men Type: BLOOD SPECIMENOrdering Facility: [facility] Address: [address] [place] [address] Performed By: #### 2 4323-8 ####[facility] LABCLIA [id number] [place] [address] Protein [Mass/Vol] 6.3 g/dL Normal 6.3-8.0 [facility] Comment on above: Order Comment: Speci men Type: BLOOD SPECIMENOrdering Facility: [facility] Address: [address] [place], [place] [address] Performed By: #### 2 4323-8 ####[facility] LABCLIA [id number] [place] [address] Sodium [Moles/Vol] 146 mmol/L High 136-144 [facility] Comment on above: Order Comment: Speci men Type: BLOOD SPECIMENOrdering Facility: [facility] Address: [address] [place] [address] Performed By: #### 2 4323-8 ####[facility] LABCLIA [id number] [place] [address] Urea nitrogen [Mass/Vol] 43 mg/dL High 9-24 [facility] Comment on above: Order Comment: Speci men Type: BLOOD SPECIMENOrdering Facility: [facility] Address: [address] [place] [address] Performed By: #### 2 4323-8 ####[facility] LABCLIA [id number] [place] [address] TSH SerPl-aCncon 05-18-2024 TSH Qn 2.600 m[IU]/L Normal 0.270-4.20 0 [facility] Comment on above: Order Comment: Speci men Type: BLOOD SPECIMENOrdering Facility: [facility] Address: [address] [place] [address] Performed By: #### 3 016-3 ####[facility] LABCLIA [id number] [place] [id number] [place] Basic Metabolic Panelon 06-0 Anion gap [Moles/Vol] 7 mmol/L Low 9 - 17 mmol/L [employer] Calcium [Mass/Vol] 8.2 mg/dL Low 8.6 - 10. 4 mg/dL [facility] [employer] Chloride [Moles/Vol] 107 mmol/L 98 - 10 7 mmol/L [facility] [employer] CO2 [Moles/Vol] 27 mmol/L 20 - 31 mmol/L [facility] Creatinine [Mass/Vol] 1.6 mg/dL High 0.7 - 1.2 mg/dL [facility] Est, Glom Filt Rate 42 Low - PINF [facility] Comment on above: These results are not intended for use in patients <18 years of age. eGFR results are calculated without a race factor using the 2020 CKD-EPI equation. Careful clinical correlation is recommended, particularly when comparing to results calculated using previous equations. The CKD-EPI equation is less accurate in patients with extremes of muscle mass, extra-renal metabolism of creatine, excessive creatine ingestion, or following therapy that affects renal tubular secretion. Glucose [Mass/Vol] 117 mg/dL High 70 - 99 mg/dL [facility] Interpretation and review of laboratory results Abnormal [facility] Potassium [Moles/Vol] 3.7 mmol/L 3.7 - 5.3 mmol/L [facility] Sodium [Moles/Vol] 141 mmol/L 135 - 144 mmol/L [facility] Urea nitrogen [Mass/Vol] 26 mg/dL High 8 - 23 mg/dL [facility] Urea nitrogen/Creatinine [Mass ratio] 16 mg/mg 9 - 20 [facility] Basic Metabolic Profon 03-22 Anion gap [Moles/Vol] 7 mmol/L Low 9-17 [facility] Comment on above: Performed By: #### C YOHAN STINSON BMP #### [facility] [address] [place] [address] [place] [address] Bread Supervisor: Augusto Sidhu MD BUN/CRE Ratio 16 Normal 9-20 [facility] Comment on above: Performed By: #### C YOHAN STINSON BMP #### [facility] [address] [place] [address] Bread Supervisor: Augusto Sidhu MD Calcium [Mass/Vol] 8.2 mg/dL Low 8.6-10.4 [facility] Comment on above: Performed By: #### C YOHAN STINSON BMP #### [facility] [address] [place] [address] [place] [address] Bread Supervisor: Augusto Sidhu MD Chloride [Moles/Vol] 107 mmol/L Normal 98-107 [facility] Comment on above: Performed By: #### C YOHAN STINSON, BMP #### [facility] [address] [place] [address] Bread Supervisor: Augusto Sidhu MD CO2 [Moles/Vol] 27 mmol/L Normal 20-31 [facility] Comment on above: Performed By: #### C YOHAN STINSON, BMP #### [facility] [address] [place] [address] Bread Supervisor: Augusto Sidhu MD Creatinine [Mass/Vol] 1.6 mg/dL High 0.7-1.2 [facility] Comment on above: Performed By: #### C YOHAN STINSON BMP #### [facility] [address] [place] [address] Bread Supervisor: Augusto Sidhu MD GFR/1.73 sq M.predicted among non-blacks MDRD (S/P/Bld) [Vol rate/Area] 42 mL/min/{1.73_m2} Low >60 [facility] Comment on above: Result Comment: These results are not intended for use in patients <18 years of age. eGFR results are calculated without a race factor using the 2020 CKD-EPI equation. Careful clinical correlation is recommended, particularly when comparing to results calculated using previous equations. The CKD-EPI equation is less accurate in patients with extremes of muscle mass, extra-renal metabolism of creatine, excessive creatine ingestion, or following therapy that affects renal tubular secretion. Performed By: #### C YOHAN STINSON, BMP #### [facility] [address] [place] [address] Bread Supervisor: Augusto Sidhu MD Glucose [Mass/Vol] 117 mg/dL High 70-99 [facility] Comment on above: Performed By: #### C YOHAN STINSON, BMP #### [facility] [address] [place] [address] Bread Supervisor: Augusto Sidhu MD Potassium [Moles/Vol] 3.7 mmol/L Normal 3.7-5.3 [facility] Comment on above: Performed By: #### C YOHAN STINSON BMP #### [facility] [address] [place] [address] Bread Supervisor: Augusto Sidhu MD Sodium [Moles/Vol] 141 mmol/L Normal 135-144 [facility] Comment on above: Performed By: #### C YOHAN STINSON BMP #### [facility] [address] [place], [place] [id number] Bread Supervisor: Augusto Sidhu MD Urea nitrogen [Mass/Vol] 26 mg/dL High 8-23 [facility] Comment on above: Performed By: #### C YOHAN STINSON BMP #### [facility] [address] [place] [address] Bread Supervisor: Augusto Sidhu MD CBC with Auto Differentialon 03-22-2024 Basophils (Bld) [#/Vol] 0.07 10*3/uL [facility] Basophils/100 WBC (Bld) 1 % 0 - 2 % [facility] Eosinophils (Bld) [#/Vol] 0.45 10*3/uL High [facility] Eosinophils/100 WBC (Bld) 5 % High 1 - 4 % [facility] Erythrocyte distribution width (RBC) [Ratio] 14.2 % 11.8 - 14.4 % [facility] Hematocrit (Bld) [Volume fraction] 36.5 % Low 40.7 - 50.3 % [facility] Hemoglobin (Bld) [Mass/Vol] 11.9 g/dL Low 13.0 - 17.0 g/dL [facility] Immature granulocytes (Bld) [#/Vol] 0.03 10*3/uL [facility] Immature granulocytes/100 WBC (Bld) 0 % 0 [facility] Interpretation and review of laboratory results Abnormal [facility] Lymphocytes/100 WBC (Bld) 10 % Low 24 - 43 % [facility] Lymphocytes/100 WBC (Bld) 0.82 % Low [facility] MCH (RBC) [Entitic mass] 27.7 pg 25.2 - 33.5 pg [facility] MCHC (RBC) [Mass/Vol] 32.6 g/dL 28.4 - 34.8 g/dL [facility] MCV (RBC) [Entitic vol] 85.1 fL 82.6 - 102.9 fL [facility] Monocytes/100 WBC (Bld) 8 % 3 - 12 % [facility] Monocytes/100 WBC (Bld) 0.63 % [facility] Neutrophils/100 WBC (Bld) 76 % High 36 - 65 % [facility] Nucleated RBC/100 WBC (Bld) [Ratio] 0.0 % 0.0 per 100 WBC [facility] Platelet mean volume (Bld) [Entitic vol] 8.5 fL 8.1 - 13.5 fL [facility] Platelets (Bld) [#/Vol] 290 10*3/uL [facility] RBC (Bld) [#/Vol] 4.29 10*6/uL 4.21 - 5.77 m/uL [facility] Segmented neutrophils/100 WBC (Bld) 6.45 % [facility] WBC other (Bld) [#/Vol] 8.5 [facility] CBC with Diffon 03-22-2024 Abs. Basophil 0.07 k/uL Normal 0.00-0.20 [facility] Comment on above: Performed By: #### C YOHAN STINSON BMP #### [facility] [address] [place] [address] [place] [id number] Bread Supervisor: Augusto Sidhu MD Abs.Imm.Granulocyte 0.03 k/uL Normal 0.00-0.30 [facility] Comment on above: Performed By: #### C YOHAN STINSON BMP #### [facility] [address] [place] [address] Bread Supervisor: Augusto Sidhu MD Abs.Neutrophil (Seg) 6.45 k/uL Normal 1.50-8.10 [facility] Comment on above: Performed By: #### C SHANTELL TROPI, BMP #### [facility] [address] [place] [address] Dr. [place], [place] [address] Bread Supervisor: Augusto Sidhu MD Basophils/100 WBC (Bld) 1 % Normal 0-2 [facility] Comment on above: Performed By: #### C DP TROPI, BMP #### [address] [place], [place] [address] Bread Supervisor: Augusto Sidhu MD Eosinophils (Bld) [#/Vol] 0.45 10*3/uL High 0.00-0.44 [facility] Comment on above: Performed By: #### C SHANTELL TROPI, BMP #### [address] [place] [address] Bread Supervisor: Augusto Sidhu MD Eosinophils/100 WBC (Bld) 5 % High 1-4 [facility] Comment on above: Performed By: #### C SHANTELL TROPI, BMP #### [address] [place], [place] [address] Bread Supervisor: Augusto Sidhu MD Erythrocyte distribution width (RBC) [Ratio] 14.2 % Normal 11.8-14.4 [facility] Comment on above: Performed By: #### C PEGGY STINSONI, BMP #### [address] [place], [place] [address] Bread Supervisor: Augusto Sidhu MD Hematocrit (Bld) [Volume fraction] 36.5 % Low 40.7-50.3 [facility] Comment on above: Performed By: #### C SHANTELL TROPI, BMP #### [address] [place], [facility]83 Bread Supervisor: Augusto Sidhu MD Hemoglobin (Bld) [Mass/Vol] 11.9 g/dL Low 13.0-17.0 [facility] Comment on above: Performed By: #### C DP TROPI, BMP #### [address] [place], [facility]83 Bread Supervisor: Augusto Sidhu MD Immature granulocytes/100 WBC (Bld) 0 % Normal 0 [facility] Comment on above: Performed By: #### C DP TROPI, BMP #### [facility] [address] [place], [place] [address] Bread Supervisor: Augusto Sidhu MD Lymphocytes (Bld) [#/Vol] 0.82 10*3/uL Low 1.10-3.70 [facility] Comment on above: Performed By: #### C SHANTELL TROPI, BMP #### [address] [place] [id number] Bread Supervisor: Augusto Sidhu MD Lymphocytes/100 WBC (Bld) 10 % Low 24-43 [facility] Comment on above: Performed By: #### C DP TROPI, BMP #### [address] [place], [place] [address] Bread Supervisor: Augusto Sidhu MD MCH (RBC) [Entitic mass] 27.7 pg Normal 25.2-33.5 [facility] Comment on above: Performed By: #### C SHANTELL TROPI, BMP #### [address] [place], [place] [address] Bread Supervisor: Augusto Sidhu MD MCHC (RBC) [Mass/Vol] 32.6 g/dL Normal 28.4-34.8 [facility] Comment on above: Performed By: #### C DP TROPI, BMP #### [address] [place], [facility]83 Bread Supervisor: Augusto Sidhu MD MCV (RBC) [Entitic vol] 85.1 fL Normal 82.6-102.9 [facility] Comment on above: Performed By: #### C DP TROPI, BMP #### [facility] [address] [place], [place] [address] Bread Supervisor: Augusto Sidhu MD Monocytes (Bld) [#/Vol] 0.63 10*3/uL Normal 0.10-1.20 [facility] Comment on above: Performed By: #### C DP, TROPI, BMP #### [facility] [address] [place], [place] [id number] Bread Supervisor: Augusto Sidhu MD Monocytes/100 WBC (Bld) 8 % Normal 3-12 [facility] Comment on above: Performed By: #### C DP TROPI, BMP #### [address] [place], [place] [address] Bread Supervisor: Augusto Sidhu MD Neutrophil (Seg) 76 % High 36-65 [facility] Comment on above: Performed By: #### C SHANTELL TROPI, BMP #### [address] [place], [place] [address] Bread Supervisor: Augusto Sidhu MD NRBC Automated 0.0 per 100 WBC Normal 0.0 [facility] Comment on above: Performed By: #### C DP TROPI, BMP #### [address] [place], [place] [id number] Bread Supervisor: Augusto Sidhu MD Platelet mean volume (Bld) [Entitic vol] 8.5 fL Normal 8.1-13.5 [facility] Comment on above: Performed By: #### C DP TROPI, BMP #### [address] [place] [address] Bread Supervisor: Augusto Sidhu MD Platelets (Bld) [#/Vol] 290 10*3/uL Normal 138-453 [facility] Comment on above: Performed By: #### C DP, TROPI, BMP #### [address] [place] [address] Bread Supervisor: Augusto Sidhu MD RBC (Bld) [#/Vol] 4.29 10*6/uL Normal 4.21-5.77 [facility] Comment on above: Performed By: #### C YOHAN STINSON BMP #### [facility] [address] [place] [address] Bread Supervisor: Augusto Sidhu MD WBC (Bld) [#/Vol] 8.5 10*3/uL Normal 3.5-11.3 [facility] Comment on above: Performed By: #### C YOHAN STINSON BMP #### [facility] [address] [place] [address] Bread Supervisor: Augusto Sidhu MD CT CHEST PULMONARY EMBOLISM W CONTRASTon 03-22-2024 CT CHEST PULMONARY EMBOLISM W CONTRAST EXAMINATION: CTA OF THE CHEST 03/22/2024 5:57 pm TECHNIQUE: CTA of the chest was performed after the administration of intravenous contrast. Multiplanar reformatted images are provided for review. MIP images are provided for review. Automated exposure control, iterative reconstruction, and/or weight based adjustment of the mA/kV was utilized to reduce the radiation dose to as low as reasonably achievable. COMPARISON: Same day chest radiograph HISTORY: ORDERING SYSTEM PROVIDED HISTORY: Eval for PE TECHNOLOGIST PROVIDED HISTORY: Eval for PE Additional Contrast?->1 FINDINGS: Pulmonary Arteries: Pulmonary arteries are adequately opacified for evaluation. No evidence of intraluminal filling defect to suggest pulmonary embolism. Main pulmonary artery is normal in caliber. Mediastinum: No evidence of mediastinal lymphadenopathy. The heart and pericardium demonstrate no acute abnormality. There is no acute abnormality of the thoracic aorta. Lungs/pleura: The lungs are without acute process. No focal consolidation or pulmonary edema. No evidence of pleural effusion or pneumothorax. Upper Abdomen: Moderate gaseous and ingested material distension of the stomach otherwise limited views of the upper abdominal viscera of grossly unremarkable. Soft Tissues/Bones: No acute bone or soft tissue abnormality. IMPRESSION: 1. No evidence of pulmonary embolism or acute pulmonary abnormality. 2. Moderate gaseous and ingested material distension of the stomach. Interpreted by: Venus Dumont MD Signed by: Venus Dumont MD 03/22/24 Final result Normal [facility] 1. No evidence of pu lmonary embolism or acute pulmonary abnormality. 2. Moderate gaseous and ingested material distension of the stomach. [facility] RIS CONSOLIDATED EXAMINATION: CTA OF THE CHEST 03/22/2024 5:57 pm TECHNIQUE: CTA of the chest was performed after the administration of intravenous contrast. Multiplanar reformatted images are provided for review. MIP images are provided for review. Automated exposure control, iterative reconstruction, and/or weight based adjustment of the mA/kV was utilized to reduce the radiation dose to as low as reasonably achievable. COMPARISON: Same day chest radiograph HISTORY: ORDERING SYSTEM PROVIDED HISTORY: Eval for PE TECHNOLOGIST PROVIDED HISTORY: Eval for PE Additional Contrast?->1 FINDINGS: Pulmonary Arteries: Pulmonary arteries are adequately opacified for evaluation. No evidence of intraluminal filling defect to suggest pulmonary embolism. Main pulmonary artery is normal in caliber. Mediastinum: No evidence of mediastinal lymphadenopathy. The heart and pericardium demonstrate no acute abnormality. There is no acute abnormality of the thoracic aorta. Lungs/pleura: The lungs are without acute process. No focal consolidation or pulmonary edema. No evidence of pleural effusion or pneumothorax. Upper Abdomen: Moderate gaseous and ingested material distension of the stomach otherwise limited views of the upper abdominal viscera of grossly unremarkable. Soft Tissues/Bones: No acute bone or soft tissue abnormality. [facility] RIS CONSOLID[facility] Venus Dumont MD - 03/22/2024 EXAMINATION: CTA OF THE CHEST 03/22/2024 5:57 pm TECHNIQUE: CTA of the chest was performed after the administration of intravenous contrast. Multiplanar reformatted images are provided for review. MIP images are provided for review. Automated exposure control, iterative reconstruction, and/or weight based adjustment of the mA/kV was utilized to reduce the radiation dose to as low as reasonably achievable. COMPARISON: Same day chest radiograph HISTORY: ORDERING SYSTEM PROVIDED HISTORY: Eval for PE TECHNOLOGIST PROVIDED HISTORY: Eval for PE Additional Contrast?->1 FINDINGS: Pulmonary Arteries: Pulmonary arteries are adequately opacified for evaluation. No evidence of intraluminal filling defect to suggest pulmonary embolism. Main pulmonary artery is normal in caliber. Mediastinum: No evidence of mediastinal lymphadenopathy. The heart and pericardium demonstrate no acute abnormality. There is no acute abnormality of the thoracic aorta. Lungs/pleura: The lungs are without acute process. No focal consolidation or pulmonary edema. No evidence of pleural effusion or pneumothorax. Upper Abdomen: Moderate gaseous and ingested material distension of the stomach otherwise limited views of the upper abdominal viscera of grossly unremarkable. Soft Tissues/Bones: No acute bone or soft tissue abnormality. IMPRESSION: 1. No evidence of pulmonary embolism or acute pulmonary abnormality. 2. Moderate gaseous and ingested material distension of the stomach. [facility] Radiology Study observation (narrative) [facility] CT CHEST PULMONARY EMBOLISM W CONTRASTOrdered By: Venus Dumont on 03-22-2024 [facility] Work Phone: D-Dimer Teston 03-22-2024 D-Dimer Test 1.08 ug/mL FEU High 0.00-0.59 [facility] Comment on above: Result Comment: When combined with a low clinical probability, a D dimer value of <0.50 ug/mL FEU is considered negative for DVT and PE (negative predictive value of 98%, sensitivity of 97%). If this test is not being used to help rule out DVT and PE, then the following reference range should be utilized: 0.00 - 0.59 ug/mL FEU. The D-Dimer assay is intended for use as an aid in the diagnosis of venous thromboembolism (DVT and PE) and the results should be interpreted in conjunction with the patient's medical history, clinical presentation, and other findings. Elevated levels of D-dimer activity can be seen in any state of coagulation activation and is not recommended in patients with therapeutic dose anticoagulant therapy for >24 hours, fibrinolytic therapy within the previous 7 days, trauma or surgery within the previous 4 weeks, disseminated malignancies, aortic aneurysm, sepsis, severe infections, pneumonia, severe skin infections, liver cirrhosis, advanced age, coronary disease, diabetes, and . A very low percentage of patients with DVT may yield D-dimer results below the cutoff of 0.5 ug/mL FEU. This is known to be more prevalent in patients with distal DVT. Performed By: #### D NANCIE ####[facility] [place] [address] lab Director: Augusto Sidhu MD D-Dimer, Quantitativeon Fibrin D-dimer FEU (PPP) [Mass/Vol] 1.08 High [facility] Comment on above: When combined with a low clinical probability, a D dimer value of <0.50 ug/mL FEU is considered negative for DVT and PE (negative predictive value of 98%, sensitivity of 97%). If this test is not being used to help rule out DVT and PE, then the following reference range should be utilized: 0.00 - 0.59 ug/mL FEU. The D-Dimer assay is intended for use as an aid in the diagnosis of venous thromboembolism (DVT and PE) and the results should be interpreted in conjunction with the patient's medical history, clinical presentation, and other findings. Elevated levels of D-dimer activity can be seen in any state of coagulation activation and is not recommended in patients with therapeutic dose anticoagulant therapy for >24 hours, fibrinolytic therapy within the previous 7 days, trauma or surgery within the previous 4 weeks, disseminated malignancies, aortic aneurysm, sepsis, severe infections, pneumonia, severe skin infections, liver cirrhosis, advanced age, coronary disease, diabetes, and . A very low percentage of patients with DVT may yield D-dimer results below the cutoff of 0.5 ug/mL FEU. This is known to be more prevalent in patients with distal DVT. Interpretation and review of laboratory results Abnormal [facility] Portable XR Chest AP single viewon 03-22-2024 No acute airspace di sease identified. [facility] EXAMINATION: ONE XRAY VIEW OF THE CHEST 03/22/2024 6:06 pm COMPARISON: None. HISTORY: ORDERING SYSTEM PROVIDED HISTORY: cp TECHNOLOGIST PROVIDED HISTORY: cp FINDINGS: The cardiomediastinal silhouette is within normal limits. Left subclavian dual chamber pacer in place. There is no consolidation, pneumothorax or evidence for edema. No evidence for effusion. No acute osseous abnormality is identified. Mildly distended stomach with ingested material. Surgical clips project over the mid abdomen. [facility] Benji Castro MD - 03/22/2024 EXAMINATION: ONE XRAY VIEW OF THE CHEST 03/22/2024 6:06 pm COMPARISON: None. HISTORY: ORDERING SYSTEM PROVIDED HISTORY: cp TECHNOLOGIST PROVIDED HISTORY: cp FINDINGS: The cardiomediastinal silhouette is within normal limits. Left subclavian dual chamber pacer in place. There is no consolidation, pneumothorax or evidence for edema. No evidence for effusion. No acute osseous abnormality is identified. Mildly distended stomach with ingested material. Surgical clips project over the mid abdomen. IMPRESSION: No acute airspace disease identified. [facility] Radiology Study observation (narrative) [facility] Portable XR Chest AP single viewOrdered By: Benji Castro on 03-22-2024 [facility] Work Phone: Troponinon 03-22-2024 Interpretation and review of laboratory results Abnormal [facility] Troponin I.cardiac High sensitivity method [Mass/Vol] 69 ng/L Critically high 0 - 22 ng/L [facility] Comment on above: High Sensitivity Tro ponin values cannot be compared with other Troponin methodologies. [facility] Troponin, High Sens 69 ng/L Critically high 0-22 [facility] Comment on above: Result Comment: High Sensitivity Troponin values cannot be compared with other Troponin methodologies. Performed By: #### T ROPI ####[facility] [place] [address] Lab Director: Augusto Sidhu MD Interpretation and review of laboratory results Abnormal [facility] Troponin I.cardiac High sensitivity method [Mass/Vol] 73 ng/L Critically high 0 - 22 ng/L [facility] Comment on above: High Sensitivity Tro ponin values cannot be compared with other Troponin methodologies. [facility] Troponin, High Sens 73 ng/L Critically high 0-22 [facility] Comment on above: Result Comment: High Sensitivity Troponin values cannot be compared with other Troponin methodologies. Performed By: #### C DP, TROPI, BMP #### [facility] [address] [place] [address] Bread Supervisor: Augusto Sidhu MD XR CHEST PORTABLEon 03-22-20 24 XR CHEST PORTABLE EXAMINATION: ONE XRAY VIEW OF THE CHEST 03/22/2024 6:06 pm COMPARISON: None. HISTORY: ORDERING SYSTEM PROVIDED HISTORY: cp TECHNOLOGIST PROVIDED HISTORY: cp FINDINGS: The cardiomediastinal silhouette is within normal limits. Left subclavian dual chamber pacer in place. There is no consolidation, pneumothorax or evidence for edema. No evidence for effusion. No acute osseous abnormality is identified. Mildly distended stomach with ingested material. Surgical clips project over the mid abdomen. IMPRESSION: No acute airspace disease identified. Interpreted by: Benji Castro MD Signed by: Benji Castro MD 03/22/24 Final result Normal [facility] CT Abdomen and Pelvis W cont rast [place] 01-27-2024 IMPRESSION: 1. Stable appearance of geographic area of hypodensity adjacent to the falciform ligament of the liver which may represent focal fatty infiltration. There is also a stable 6 mm hypervascular focus within the subcapsular dome of segment 8 of the liver which may represent a perfusion anomaly or small vascular anomaly. 2. Stable splenic lesions which are nonspecific on cross-sectional imaging but have been present since 2020. The largest lesion is hypervascular and may represent a hemangioma. The stability is reassuring. 3. Diffuse anasarca as well as a small volume of free fluid in the lower abdomen/pelvis. This is new when compared to the prior exam. 4. Mild right hydronephrosis and hydroureter which is similar in appearance to the prior exam. Left nephrectomy. Transcribe Date/Time: Jan 27 2024 8:06A Dictated by: LIO OSORIO MD This examination was interpreted and the report reviewed and electronically signed by: LIO OSORIO MD on Jan 27 2024 8:35AM EST Thank you for allowing us to participate in the care of your patient. Should there be any questions regarding this interpretation, please call [phone]. If you are unable to reach us at the number above, please feel free to contact [facility] eRadiology at [phone]. DIVISION OF RADIOLOGY * * *Final Report* * * DATE OF EXAM: Jan 24 2024 1:25PM [facility] 0530 - CT ABD/PEL W IVCON / PROCEDURE REASON: Malignant neoplasm of urinary bladder, unspecified site (HCC) * * * * Physician Interpretation * * * * RESULT: EXAMINATION: CT ABDOMEN AND PELVIS WITH IV CONTRAST CLINICAL HISTORY: Malignant neoplasm of the urinary bladder. TECHNIQUE: CT of the abdomen and pelvis was performed using standard technique, scanning from just above the dome of the diaphragm to the symphysis pubis. MQ: CTAP_3 Contrast: IV: 150 ml of Omnipaque 300 Oral: 500 ml of Omni 240 10-25ml diluted with water CT Radiation dose: Integrated Dose-length product (DLP) for this visit = 707 mGy*cm. CT Dose Reduction Employed: Automated exposure control (AEC) COMPARISON: CT the abdomen and pelvis with contrast from 08/23/2023. RESULT: Liver: Stable area of geographic hypodensity adjacent to the falciform ligament. This may represent focal fatty infiltration. Stable 6 mm focus of subcapsular enhancement in the dome of segment 8 of the liver on slice 16 of series 3, possibly representing a perfusion anomaly or vascular anomaly. Biliary: No bile duct dilation. Gallbladder is unremarkable. Spleen: Stable hypervascular lesion in the posterior spleen and subcentimeter hypodense lesions. These remain nonspecific but have been present on multiple prior exams dating back to 2000 and could represent hemangiomas. No splenomegaly. Pancreas: No mass or duct dilation. Adrenals: No mass. Kidneys: Status post left nephrectomy. No abnormal tissue detected within the nephrectomy bed. Mild right renal cortical atrophy. Trace right hydronephrosis and hydroureter which is similar in appearance to the prior exam. Subcentimeter hypodense renal lesions which are too small to characterize but likely represent cysts. GI tract: No dilation or wall thickening. Lymph nodes: No abdominal or pelvic lymphadenopathy. Mesentery/Peritoneum: Small volume of free fluid in the lower abdomen/pelvis. Encapsulated area of fat along the left paracolic gutter, unchanged and likely due to area of fat necrosis. Pelvis: No mass, ascites or fluid collection. Bones/Soft Tissues: Degenerative changes. Diffuse anasarca. Lower thorax: A chest CT performed will be reported separately. Localizer images: No additional findings. DIVISION OF RADIOLOGY Provider, [facility] - 01/27/2024 * * *Final Report* * * DATE OF EXAM: Jan 24 2024 1:25PM [facility] 0530 - CT ABD/PEL W IVCON / PROCEDURE REASON: Malignant neoplasm of urinary bladder, unspecified site (HCC) * * * * Physician Interpretation * * * * RESULT: EXAMINATION: CT ABDOMEN AND PELVIS WITH IV CONTRAST CLINICAL HISTORY: Malignant neoplasm of the urinary bladder. TECHNIQUE: CT of the abdomen and pelvis was performed using standard technique, scanning from just above the dome of the diaphragm to the symphysis pubis. MQ: CTAP_3 Contrast: IV: 150 ml of Omnipaque 300 Oral: 500 ml of Omni 240 10-25ml diluted with water CT Radiation dose: Integrated Dose-length product (DLP) for this visit = 707 mGy*cm. CT Dose Reduction Employed: Automated exposure control (AEC) COMPARISON: CT the abdomen and pelvis with contrast from 08/23/2023. RESULT: Liver: Stable area of geographic hypodensity adjacent to the falciform ligament. This may represent focal fatty infiltration. Stable 6 mm focus of subcapsular enhancement in the dome of segment 8 of the liver on slice 16 of series 3, possibly representing a perfusion anomaly or vascular anomaly. Biliary: No bile duct dilation. Gallbladder is unremarkable. Spleen: Stable hypervascular lesion in the posterior spleen and subcentimeter hypodense lesions. These remain nonspecific but have been present on multiple prior exams dating back to 2000 and could represent hemangiomas. No splenomegaly. Pancreas: No mass or duct dilation. Adrenals: No mass. Kidneys: Status post left nephrectomy. No abnormal tissue detected within the nephrectomy bed. Mild right renal cortical atrophy. Trace right hydronephrosis and hydroureter which is similar in appearance to the prior exam. Subcentimeter hypodense renal lesions which are too small to characterize but likely represent cysts. GI tract: No dilation or wall thickening. Lymph nodes: No abdominal or pelvic lymphadenopathy. Mesentery/Peritoneum: Small volume of free fluid in the lower abdomen/pelvis. Encapsulated area of fat along the left paracolic gutter, unchanged and likely due to area of fat necrosis. Pelvis: No mass, ascites or fluid collection. Bones/Soft Tissues: Degenerative changes. Diffuse anasarca. Lower thorax: A chest CT performed will be reported separately. Localizer images: No additional findings. IMPRESSION IMPRESSION: 1. Stable appearance of geographic area of hypodensity adjacent to the falciform ligament of the liver which may represent focal fatty infiltration. There is also a stable 6 mm hypervascular focus within the subcapsular dome of segment 8 of the liver which may represent a perfusion anomaly or small vascular anomaly. 2. Stable splenic lesions which are nonspecific on cross-sectional imaging but have been present since 2020. The largest lesion is hypervascular and may represent a hemangioma. The stability is reassuring. 3. Diffuse anasarca as well as a small volume of free fluid in the lower abdomen/pelvis. This is new when compared to the prior exam. 4. Mild right hydronephrosis and hydroureter which is similar in appearance to the prior exam. Left nephrectomy. Transcribe Date/Time: Jan 27 2024 8:06A Dictated by: LIO OSORIO MD This examination was interpreted and the report reviewed and electronically signed by: LIO OSORIO MD on Jan 27 2024 8:35AM EST Thank you for allowing us to participate in the care of your patient. Should there be any questions regarding this interpretation, please call [phone]. If you are unable to reach us at the number above, please feel free to contact [facility] eRadiology at [phone]. [facility] CT Abdomen and Pelvis W cont rast IVOrdered By: [facility] Provider on 01-27-[address] [facility] [address] Chest W contrast [place] Interpretation and review of laboratory results Abnormal [facility] Radiology Result ACTIONABLE Abnormal [facility] Comment on above: This report contains an incidental or actionable finding. This finding may be a new finding separate from the reason your provider ordered the imaging test or it may be an already known finding that needs additional or continued follow-up. Because of this incidental or actionable finding, you may need another test (imaging or a different type of test). Please contact your provider for the next steps. IMPRESSION: 1. There are new patchy groundglass opacities in the right upper lobe. Given the imaging appearance and short-term development, these may be infectious/inflammatory in etiology. Therefore, would advise a short-term follow-up chest CT without contrast in 6-8 weeks to reevaluate the opacities. 2. Stable subcentimeter solid pulmonary nodules. 3. No significant thoracic adenopathy. ACTIONABLE RESULT: FOLLOW-UP Acuity: Actionable Findings: Thoracic-Lung nodules Routing code: RI_[id number] Recommendation: CT Chest WO IVCON Time Frame: 6-12 weeks COMMUNICATION: Results will be communicated with the ordering provider via [employer] staff message or phone message by [employer] within 2 business days of report finalization. --END OF FINDING-- ========= Algorithms for management of incidental imaging findings can be found on the [facility] Intranet Sharepoint site at: http://spo.[facility].org/document [email or web address]/[email or web address] %20Incidental%20Findi ngs%20at%20Imaging/Forms/Al lItems.aspx Transcribe Date/Time: Jan 27 2024 8:36A Dictated by: LIO OSORIO MD This examination was interpreted and the report reviewed and electronically signed by: LIO OSORIO MD on Jan 27 2024 8:50AM EST Thank you for allowing us to participate in the care of your patient. Should there be any questions regarding this interpretation, please call [phone]. If you are unable to reach us at the number above, please feel free to contact [facility] eRadiology at [phone]. DIVISION OF RADIOLOGY * * *Final Report* * * DATE OF EXAM: Jan 24 2024 1:25PM [facility] 0539 - CT CHEST W IVCON / PROCEDURE REASON: Malignant neoplasm of urinary bladder, unspecified site (HCC) * * * * Physician Interpretation * * * * RESULT: EXAMINATION: CHEST CT WITH CONTRAST CLINICAL HISTORY: Malignant neoplasm of the urinary bladder. Technique: Spiral CT acquisition of the chest from the thoracic inlet to the upper abdomen following IV contrast. MQ: CTCW_6 Contrast: 150 mL Omnipaque [address] Radiation dose: Integrated Dose-length product (DLP) for this visit = 707 mGy*cm CT Dose Reduction Employed: Automated exposure control (AEC) Comparison: Chest CT from 08/23/2023. RESULT: Limitations: None. Lines, tubes, and devices: Left pacemaker. Lung parenchyma and airways: Pulmonary nodules are again noted on series 4. For example, there is a stable 2 mm solid nodule in the anterior right upper lobe on slice 67. Stable 2 mm solid nodule in the lateral right lower lobe on slice 101. Additional stable 2-3 mm pulmonary nodules. New patchy groundglass opacities in the right upper lobe on slices 78, 86, and 97. Minimal layering mucus within the right mainstem bronchus. Pleural space: No pleural effusion. No pleural thickening. Lower neck, lymph nodes, and mediastinum: No suspicious axillary, mediastinal, or hilar lymphadenopathy. Heart, pericardium, and thoracic vessels: No pericardial effusion. Moderate coronary artery calcification. Bones and soft tissues: No destructive bone lesion. Chest wall is unremarkable. Upper abdomen: A CT of the abdomen and pelvis was performed and will be reported separately. Localizer images: No additional findings. DIVISION OF RADIOLOGY [facility] * * *Final Report* * * DATE OF EXAM: Jan 24 2024 1:25PM [facility] 0539 - CT CHEST W IVCON / PROCEDURE REASON: Malignant neoplasm of urinary bladder, unspecified site (HCC) * * * * Physician Interpretation * * * * RESULT: EXAMINATION: CHEST CT WITH CONTRAST CLINICAL HISTORY: Malignant neoplasm of the urinary bladder. Technique: Spiral CT acquisition of the chest from the thoracic inlet to the upper abdomen following IV contrast. MQ: CTCW_6 Contrast: 150 mL Omnipaque [address] Radiation dose: Integrated Dose-length product (DLP) for this visit = 707 mGy*cm CT Dose Reduction Employed: Automated exposure control (AEC) Comparison: Chest CT from 08/23/2023. RESULT: Limitations: None. Lines, tubes, and devices: Left pacemaker. Lung parenchyma and airways: Pulmonary nodules are again noted on series 4. For example, there is a stable 2 mm solid nodule in the anterior right upper lobe on slice 67. Stable 2 mm solid nodule in the lateral right lower lobe on slice 101. Additional stable 2-3 mm pulmonary nodules. New patchy groundglass opacities in the right upper lobe on slices 78, 86, and 97. Minimal layering mucus within the right mainstem bronchus. Pleural space: No pleural effusion. No pleural thickening. Lower neck, lymph nodes, and mediastinum: No suspicious axillary, mediastinal, or hilar lymphadenopathy. Heart, pericardium, and thoracic vessels: No pericardial effusion. Moderate coronary artery calcification. Bones and soft tissues: No destructive bone lesion. Chest wall is unremarkable. Upper abdomen: A CT of the abdomen and pelvis was performed and will be reported separately. Localizer images: No additional findings. IMPRESSION IMPRESSION: 1. There are new patchy groundglass opacities in the right upper lobe. Given the imaging appearance and short-term development, these may be infectious/inflammatory in etiology. Therefore, would advise a short-term follow-up chest CT without contrast in 6-8 weeks to reevaluate the opacities. 2. Stable subcentimeter solid pulmonary nodules. 3. No significant thoracic adenopathy. ACTIONABLE RESULT: FOLLOW-UP Acuity: Actionable Findings: Thoracic-Lung nodules Routing code: RI_1 Recommendation: CT Chest WO IVCON Time Frame: 6-12 weeks COMMUNICATION: Results will be communicated with the ordering provider via [employer] staff message or phone message by [facility] within 2 business days of report finalization. --END OF FINDING-- ========= Algorithms for management of incidental imaging findings can be found on the [facility] Intranet Sharepoint site at: http://spo.cc.org/document [email or web address]/[email or web address] %20Incidental%20Findi ngs%20at%20Imaging/Forms/Al lItems.aspx Transcribe Date/Time: Jan 27 2024 8:36A Dictated by: LIO OSORIO MD This examination was interpreted and the report reviewed and electronically signed by: LIO OSORIO MD on Jan 27 2024 8:50AM EST Thank you for allowing us to participate in the care of your patient. Should there be any questions regarding this interpretation, please call [phone]. If you are unable to reach us at the number above, please feel free to contact [facility] eRadiology at [phone]. [facility] CBC W Auto Differential pane l (Bld)on 01-24-2024 Basophils (Bld) [#/Vol] 0.03 10*3/uL [facility] Basophils/100 WBC (Bld) 0.4 % [facility] Differential cell count method Nom (Bld) Auto [facility] Eosinophils (Bld) [#/Vol] 0.12 10*3/uL [facility] Eosinophils/100 WBC (Bld) 1.6 % [facility] Erythrocyte distribution width (RBC) [Ratio] 17.1 % High 11.5 - 15.0 % [facility] Hematocrit (Bld) [Volume fraction] 38.0 % Low 39.0 - 51.0 % [facility] Hemoglobin (Bld) [Mass/Vol] 12.4 g/dL Low 13.0 - 17.0 g/dL [facility] Immature granulocytes (Bld) [#/Vol] 0.03 10*3/uL [facility] Immature granulocytes/100 WBC (Bld) 0.4 % [facility] Interpretation and review of laboratory results Abnormal [facility] Lymphocytes (Bld) [#/Vol] 0.47 10*3/uL Low [facility] Lymphocytes/100 WBC (Bld) 6.5 % [facility] MCH (RBC) [Entitic mass] 27.9 pg 26.0 - 34.0 pg [facility] MCHC (RBC) [Mass/Vol] 32.6 g/dL 30.5 - 36.0 g/dL [facility] MCV (RBC) [Entitic vol] 85.6 fL 80.0 - 100.0 fL [facility] Monocytes (Bld) [#/Vol] 0.50 10*3/uL [facility] Monocytes/100 WBC (Bld) 6.9 % [facility] Neutrophils (Bld) [#/Vol] 6.13 10*3/uL [facility] Neutrophils/100 WBC (Bld) 84.2 % [facility] Nucleated RBC (Bld) [#/Vol] [facility] Nucleated RBC/100 WBC (Bld) [Ratio] 0.0 % /100 WBC [facility] Platelet mean volume (Bld) [Entitic vol] 9.0 fL 9.0 - 12.7 fL [facility] Platelets (Bld) [#/Vol] 206 10*3/uL [facility] RBC (Bld) [#/Vol] 4.44 10*6/uL 4.20 - 6.00 m/uL [facility] WBC (Bld) [#/Vol] 7.28 10*3/uL [facility] Comprehensive metabolic 2000 panelOrdered By: Skylar Orona on 01-24-2024 Albumin [Mass/Vol] 3.1 g/dL Low 3.9 - 4.9 g/dL [facility] ALP [Catalytic activity/Vol] 59 U/L 38 - 113 U/L [facility] ALT [Catalytic activity/Vol] 20 U/L 10 - 54 U/L [facility] Anion gap [Moles/Vol] 7 mmol/L Low 9 - 18 mmol/L [facility] AST [Catalytic activity/Vol] 23 U/L 14 - 40 U/L [facility] Bilirubin [Mass/Vol] 0.4 mg/dL 0.2 - 1 .3 mg/dL [facility] Calcium [Mass/Vol] 8.4 mg/dL Low 8.5 - 10. 2 mg/dL [facility] Chloride [Moles/Vol] 108 mmol/L High 97 - 10 5 mmol/L [facility] CO2 [Moles/Vol] 30 mmol/L 22 - 30 mmol/L [facility] Creatinine [Mass/Vol] 1.55 mg/dL High 0.73 - 1.22 mg/dL [facility] GFR/1.73 sq M.predicted among non-blacks MDRD (S/P/Bld) [Vol rate/Area] 44 mL/min/{1.73_m2} Low - PINF [facility] Comment on above: Estimated Glomerular Filtration Rate (eGFR) is calculated using the 2020 CKD-EPI creatinine equation. This equation utilizes serum creatinine, sex, and age as parameters. The creatinine assay has traceable calibration to isotope dilution-mass spectrometry. Refer to KDIGO guidelines for clinical interpretation. In patients with unstable renal function, e.g. those with acute kidney injury, the eGFR may not accurately reflect actual GFR. Glucose [Mass/Vol] 107 mg/dL High 74 - 99 mg/dL [facility] Comment on above: The [place] [employer] (ADA) provides guidance for cutoff values for fasting glucose and random glucose. The ADA defines fasting as no caloric intake for at least 8 hours. Fasting plasma glucose results between 100 to 125 mg/dL indicate increased risk for diabetes (prediabetes). Fasting plasma glucose results greater than or equal to 126 mg/dL meet the criteria for diagnosis of diabetes. In the absence of unequivocal hyperglycemia, results should be confirmed by repeat testing. In a patient with classic symptoms of hyperglycemia or hyperglycemic crisis, random plasma glucose results greater than or equal to 200 mg/dL meet the criteria for diagnosis of diabetes. Reference: Standards of Medical Care in Diabetes 2016, [place] [employer]. Diabetes Care. 2016.39(Suppl 1). Interpretation and review of laboratory results Abnormal [facility] Potassium [Moles/Vol] 3.7 mmol/L 3.7 - 5.1 mmol/L [facility] Protein [Mass/Vol] 4.7 g/dL Low 6.3 - 8.0 g/dL [facility] Sodium [Moles/Vol] 145 mmol/L High 136 - 144 mmol/L [facility] Urea nitrogen [Mass/Vol] 28 mg/dL High 9 - 24 mg/dL [facility] No Panel Informationon 01-23 Radiology Study observation (narrative) [facility] CT Abdomen and Pelvis W cont rast [place] 08-24-2023 IMPRESSION: 1. More conspicuous indeterminate 2.7 x 1.0 cm hypodensity in left frontal lobe adjacent to the falciform ligament. Differential diagnosis includes area of focal fatty infiltration, perfusion anomaly and other focal hepatic abnormality. Consider continued interval follow-up or further evaluation via MRI. 2. More conspicuous fullness of the right urinary collecting system. 3. Nonspecific 6 mm enhancing focus in the right hepatic lobe, stable. Transcribe Date/Time: Aug 24 2023 5:25P Dictated by: CHRISTIANO MEDINA MD This examination was interpreted and the report reviewed and electronically signed by: CHRISTIANO MEDINA MD on Aug 24 2023 6:07PM EST Thank you for allowing us to participate in the care of your patient. Should there be any questions regarding this interpretation, please call [phone]. If you are unable to reach us at the number above, please feel free to contact [facility] at [phone]. DIVISION OF RADIOLOGY * * *Final Report* * * DATE OF EXAM: Aug 23 2023 10:44AM [facility] 0530 - CT ABD/PEL W IVCON / PROCEDURE REASON: Malignant 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) * * * * Physician Interpretation * * * * RESULT: EXAMINATION: CT ABDOMEN AND PELVIS WITH IV CONTRAST CLINICAL HISTORY: Bladder cancer follow-up TECHNIQUE: CT of the abdomen and pelvis was performed using standard technique, scanning from just above the dome of the diaphragm to the symphysis pubis. MQ: CTAP_3 Contrast: IV: 150 ml of Omnipaque 300 Oral: [address] Radiation dose: Integrated Dose-length product (DLP) for this visit = 913 mGy*cm. CT Dose Reduction Employed: Automated exposure control (AEC) COMPARISON: 05/31/23, 09/26/21 RESULT: Liver: 6 mm enhancing focus in the dome of the liver (3: 16), stable. More conspicuous 2.7 x 1.0 cm hypodensity in segment 4A adjacent to falciform ligament (3:29) and may represent an area of fatty infiltration or perfusion anomaly. Consider interval follow-up or further evaluation via MRI. Biliary: No bile duct dilation. Gallbladder is unremarkable. Spleen: 1.9 cm enhancing focus 3:44), stable since 09/26/21 and may represent a hemangioma. Additional 5-6 mm hypodensities (3: 36, 48) too small to characterize. No splenomegaly. Pancreas: No mass or duct dilation. Adrenals: No mass. Kidneys: Status post left nephrectomy. No evidence of a locally recurrent mass. More conspicuous fullness of the right urinary collecting system. GI tract: No dilation or wall thickening. Scattered colonic diverticulosis without evidence of definite diverticulitis. No evidence of appendicitis. Lymph nodes: No abdominal or pelvic lymphadenopathy. Mesentery/Peritoneum: No ascites or mass. Rounded areas of reticular fat in the left abdomen (3:68) most likely related to fat necrosis. Retroperitoneum: No mass. Vasculature: - Abdominal aorta and iliac arteries: Atherosclerotic calcifications without aneurysm. - Celiac and SMA: Patent without stenosis. - Portal venous system (SMV, splenic vein, portal vein and branches): Patent. - Hepatic veins: Patent. Pelvis: No mass, ascites or fluid collection. Urinary bladder is decompressed. Bones/Soft Tissues: No suspicious lytic or blastic osseous lesions. Lower thorax: A chest CT performed will be reported separately. Control Valve Technician (topogram) images: No additional findings. DIVISION OF RADIOLOGY Provider, [facility] - 08/24/2023 * * *Final Report* * * DATE OF EXAM: Aug 23 2023 10:44AM [facility] 0530 - CT ABD/PEL W IVCON / PROCEDURE REASON: Malignant 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) * * * * Physician Interpretation * * * * RESULT: EXAMINATION: CT ABDOMEN AND PELVIS WITH IV CONTRAST CLINICAL HISTORY: Bladder cancer follow-up TECHNIQUE: CT of the abdomen and pelvis was performed using standard technique, scanning from just above the dome of the diaphragm to the symphysis pubis. MQ: CTAP_3 Contrast: IV: 150 ml of Omnipaque 300 Oral: [address] Radiation dose: Integrated Dose-length product (DLP) for this visit = 913 mGy*cm. CT Dose Reduction Employed: Automated exposure control (AEC) COMPARISON: 05/31/23, 09/26/21 RESULT: Liver: 6 mm enhancing focus in the dome of the liver (3: 16), stable. More conspicuous 2.7 x 1.0 cm hypodensity in segment 4A adjacent to falciform ligament (3:29) and may represent an area of fatty infiltration or perfusion anomaly. Consider interval follow-up or further evaluation via MRI. Biliary: No bile duct dilation. Gallbladder is unremarkable. Spleen: 1.9 cm enhancing focus 3:44), stable since 09/26/21 and may represent a hemangioma. Additional 5-6 mm hypodensities (3: 36, 48) too small to characterize. No splenomegaly. Pancreas: No mass or duct dilation. Adrenals: No mass. Kidneys: Status post left nephrectomy. No evidence of a locally recurrent mass. More conspicuous fullness of the right urinary collecting system. GI tract: No dilation or wall thickening. Scattered colonic diverticulosis without evidence of definite diverticulitis. No evidence of appendicitis. Lymph nodes: No abdominal or pelvic lymphadenopathy. Mesentery/Peritoneum: No ascites or mass. Rounded areas of reticular fat in the left abdomen (3:68) most likely related to fat necrosis. Retroperitoneum: No mass. Vasculature: - Abdominal aorta and iliac arteries: Atherosclerotic calcifications without aneurysm. - Celiac and SMA: Patent without stenosis. - Portal venous system (SMV, splenic vein, portal vein and branches): Patent. - Hepatic veins: Patent. Pelvis: No mass, ascites or fluid collection. Urinary bladder is decompressed. Bones/Soft Tissues: No suspicious lytic or blastic osseous lesions. Lower thorax: A chest CT performed will be reported separately. Control Valve Technician (topogram) images: No additional findings. IMPRESSION IMPRESSION: 1. More conspicuous indeterminate 2.7 x 1.0 cm hypodensity in left frontal lobe adjacent to the falciform ligament. Differential diagnosis includes area of focal fatty infiltration, perfusion anomaly and other focal hepatic abnormality. Consider continued interval follow-up or further evaluation via MRI. 2. More conspicuous fullness of the right urinary collecting system. 3. Nonspecific 6 mm enhancing focus in the right hepatic lobe, stable. Transcribe Date/Time: Aug 24 2023 5:25P Dictated by: CHRISTIANO MEDINA MD This examination was interpreted and the report reviewed and electronically signed by: CHRISTIANO MEDINA MD on Aug 24 2023 6:07PM EST Thank you for allowing us to participate in the care of your patient. Should there be any questions regarding this interpretation, please call [phone]. If you are unable to reach us at the number above, please feel free to contact [facility] at [phone]. [facility] CT Abdomen and Pelvis W cont rast IVOrdered By: [facility] Provider on 08-24-[address] [facility] [address] Chest W contrast [place] IMPRESSION: 1. No evidence of intrathoracic metastases. 2. New 1.6 cm right thyroid nodule. If clinically indicated, consider further evaluation via thyroid ultrasound. Transcribe Date/Time: Aug 23 2023 6:07P Dictated by: CHRISTIANO MEDINA MD This examination was interpreted and the report reviewed and electronically signed by: CHRISTIANO MEDINA MD on Aug 24 2023 6:06PM EST Thank you for allowing us to participate in the care of your patient. Should there be any questions regarding this interpretation, please call [phone]. If you are unable to reach us at the number above, please feel free to contact [facility] at [phone]. DIVISION OF RADIOLOGY * * *Final Report* * * DATE OF EXAM: Aug 23 2023 10:44AM [facility] 0539 - CT CHEST W IVCON / PROCEDURE REASON: Malignant 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) * * * * Physician Interpretation * * * * RESULT: EXAMINATION: CHEST CT WITH CONTRAST CLINICAL HISTORY: Bladder cancer Technique: Spiral CT acquisition of the chest from the thoracic inlet to the upper abdomen following IV contrast. MQ: CTCW_6 Contrast: 150 mL Omnipaque [address] Radiation dose: Integrated Dose-length product (DLP) for this visit = 913 mGy*cm CT Dose Reduction Employed: Automated exposure control (AEC) Comparison: 05/31/23, 09/25/19 RESULT: Limitations: Left-sided pacemaker Lines, tubes, and devices: None. Lung parenchyma and airways: Subcentimeter nodular opacities measuring less than 5 mm, stable since 09/25/19. For example: Right upper lobe (4: 69, 80) Right lower lobe (4:106) Left upper lobe (4: 45) Node in the air space opacities. The central airways are patent. Pleural space: No pleural effusion. No pleural thickening. Lower neck, lymph nodes, and mediastinum: New 1.6 cm right thyroid nodule. No lymphadenopathy in the supraclavicular, axillary, mediastinal, or hilar regions. Heart, pericardium, and thoracic vessels: The thoracic aorta and main pulmonary artery are normal in caliber. The cardiac chambers are normal in size. No coronary artery atherosclerotic calcifications are noted, although the study is not optimized for coronary assessment. No pericardial effusion or thickening. Bones and soft tissues: Sclerotic focus in the left lateral sixth rib (4:104), stable since 09/25/19. No new osseous abnormalities.. Upper abdomen: Please refer to the abdomen CT scan report for the abdomen findings. Control Valve Technician (topogram) images: No additional findings. DIVISION OF RADIOLOGY Provider, [facility] - 08/24/2023 * * *Final Report* * * DATE OF EXAM: Aug 23 2023 10:44AM [facility] 0539 - CT CHEST W IVCON / PROCEDURE REASON: Malignant 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) * * * * Physician Interpretation * * * * RESULT: EXAMINATION: CHEST CT WITH CONTRAST CLINICAL HISTORY: Bladder cancer Technique: Spiral CT acquisition of the chest from the thoracic inlet to the upper abdomen following IV contrast. MQ: CTCW_6 Contrast: 150 mL Omnipaque [address] Radiation dose: Integrated Dose-length product (DLP) for this visit = 913 mGy*cm CT Dose Reduction Employed: Automated exposure control (AEC) Comparison: 05/31/23, 09/25/19 RESULT: Limitations: Left-sided pacemaker Lines, tubes, and devices: None. Lung parenchyma and airways: Subcentimeter nodular opacities measuring less than 5 mm, stable since 09/25/19. For example: Right upper lobe (4: 69, 80) Right lower lobe (4:106) Left upper lobe (4: 45) Node in the air space opacities. The central airways are patent. Pleural space: No pleural effusion. No pleural thickening. Lower neck, lymph nodes, and mediastinum: New 1.6 cm right thyroid nodule. No lymphadenopathy in the supraclavicular, axillary, mediastinal, or hilar regions. Heart, pericardium, and thoracic vessels: The thoracic aorta and main pulmonary artery are normal in caliber. The cardiac chambers are normal in size. No coronary artery atherosclerotic calcifications are noted, although the study is not optimized for coronary assessment. No pericardial effusion or thickening. Bones and soft tissues: Sclerotic focus in the left lateral sixth rib (4:104), stable since 09/25/19. No new osseous abnormalities.. Upper abdomen: Please refer to the abdomen CT scan report for the abdomen findings. Control Valve Technician (topogram) images: No additional findings. IMPRESSION IMPRESSION: 1. No evidence of intrathoracic metastases. 2. New 1.6 cm right thyroid nodule. If clinically indicated, consider further evaluation via thyroid ultrasound. Transcribe Date/Time: Aug 23 2023 6:07P Dictated by: CHRISTIANO MEDINA MD This examination was interpreted and the report reviewed and electronically signed by: CHRISTIANO MEDINA MD on Aug 24 2023 6:06PM EST Thank you for allowing us to participate in the care of your patient. Should there be any questions regarding this interpretation, please call [phone]. If you are unable to reach us at the number above, please feel free to contact [facility] at [phone]. [facility] No Panel Informationon 08-23 Radiology Study observation (narrative) [facility] CT Abdomen and Pelvis W cont rast [place] 06-01-2023 IMPRESSION: 1. New indeterminate 5 mm enhancing focus in the dome of the liver. Differential diagnosis includes perfusion phenomenon and other infectious/inflammatory etiologies. Subtle neoplasm cannot be excluded. Consider interval follow-up. 2. Additional punctate splenic hypodensities, too small to characterize, may also be evaluated at interval follow-up. Transcribe Date/Time: Jun 01 2023 1:23P Dictated by: CHRISTIANO MEDINA MD This examination was interpreted and the report reviewed and electronically signed by: CHRISTIANO MEDINA MD on Jun 01 2023 1:33PM EST Thank you for allowing us to participate in the care of your patient. Should there be any questions regarding this interpretation, please call [phone]. If you are unable to reach us at the number above, please feel free to contact [facility] at [phone]. DIVISION OF RADIOLOGY * * *Final Report* * * DATE OF EXAM: May 31 2023 10:16AM [facility] 0530 - CT ABD/PEL W IVCON / PROCEDURE REASON: Malignant 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) * * * * Physician Interpretation * * * * RESULT: EXAMINATION: CT ABDOMEN AND PELVIS WITH IV CONTRAST CLINICAL HISTORY: Bladder cancer follow-up TECHNIQUE: CT of the abdomen and pelvis was performed using standard technique, scanning from just above the dome of the diaphragm to the symphysis pubis. MQ: CTAP_3 Contrast: IV: 150 ml of Omnipaque 300 Oral: 500 ml of Omni 240 10-25ml diluted with water CT Radiation dose: Integrated Dose-length product (DLP) for this visit = 1030 mGy*cm. CT Dose Reduction Employed: Automated exposure control (AEC) COMPARISON: 11/15/02, 09/26/21 RESULT: Liver: New 5 mm enhancing focus in the dome of the liver (3:15). Biliary: No bile duct dilation. Gallbladder is unremarkable. Spleen: 1.5 cm enhancing focus 3:44), stable since 09/26/21 and may represent hemangioma. Additional 5-6 mm hypodensities (3:37, 49) too small to characterize. No splenomegaly. Pancreas: No mass or duct dilation. Adrenals: No mass. Kidneys: Status post left nephrectomy. No evidence of locally recurrent mass. GI tract: No dilation or wall thickening. Lymph nodes: No abdominal or pelvic lymphadenopathy. Mesentery/Peritoneum: No ascites or mass. Rounded areas of reticular fat in the left abdomen (3:68) most likely related to fat necrosis. Retroperitoneum: No mass. Vasculature: - Abdominal aorta and iliac arteries: Atherosclerotic calcifications without aneurysm. - Celiac and SMA: Patent without stenosis. - Portal venous system (SMV, splenic vein, portal vein and branches): Patent. - Hepatic veins: Patent. Pelvis: No mass, ascites or fluid collection. Urinary bladder is decompressed. Bones/Soft Tissues: No suspicious lytic or blastic osseous lesions. Lower thorax: A chest CT performed will be reported separately. Control Valve Technician (topogram) images: No additional findings. DIVISION OF RADIOLOGY Provider, [facility] - 06/01/2023 * * *Final Report* * * DATE OF EXAM: May 31 2023 10:16AM [facility] 0530 - CT ABD/PEL W IVCON / PROCEDURE REASON: Malignant 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) * * * * Physician Interpretation * * * * RESULT: EXAMINATION: CT ABDOMEN AND PELVIS WITH IV CONTRAST CLINICAL HISTORY: Bladder cancer follow-up TECHNIQUE: CT of the abdomen and pelvis was performed using standard technique, scanning from just above the dome of the diaphragm to the symphysis pubis. MQ: CTAP_3 Contrast: IV: 150 ml of Omnipaque 300 Oral: 500 ml of Omni 240 10-25ml diluted with water CT Radiation dose: Integrated Dose-length product (DLP) for this visit = 1030 mGy*cm. CT Dose Reduction Employed: Automated exposure control (AEC) COMPARISON: 11/15/02, 09/26/21 RESULT: Liver: New 5 mm enhancing focus in the dome of the liver (3:15). Biliary: No bile duct dilation. Gallbladder is unremarkable. Spleen: 1.5 cm enhancing focus 3:44), stable since 09/26/21 and may represent hemangioma. Additional 5-6 mm hypodensities (3:37, 49) too small to characterize. No splenomegaly. Pancreas: No mass or duct dilation. Adrenals: No mass. Kidneys: Status post left nephrectomy. No evidence of locally recurrent mass. GI tract: No dilation or wall thickening. Lymph nodes: No abdominal or pelvic lymphadenopathy. Mesentery/Peritoneum: No ascites or mass. Rounded areas of reticular fat in the left abdomen (3:68) most likely related to fat necrosis. Retroperitoneum: No mass. Vasculature: - Abdominal aorta and iliac arteries: Atherosclerotic calcifications without aneurysm. - Celiac and SMA: Patent without stenosis. - Portal venous system (SMV, splenic vein, portal vein and branches): Patent. - Hepatic veins: Patent. Pelvis: No mass, ascites or fluid collection. Urinary bladder is decompressed. Bones/Soft Tissues: No suspicious lytic or blastic osseous lesions. Lower thorax: A chest CT performed will be reported separately. Control Valve Technician (topogram) images: No additional findings. IMPRESSION IMPRESSION: 1. New indeterminate 5 mm enhancing focus in the dome of the liver. Differential diagnosis includes perfusion phenomenon and other infectious/inflammatory etiologies. Subtle neoplasm cannot be excluded. Consider interval follow-up. 2. Additional punctate splenic hypodensities, too small to characterize, may also be evaluated at interval follow-up. Transcribe Date/Time: Jun 01 2023 1:23P Dictated by: CHRISTIANO MEDINA MD This examination was interpreted and the report reviewed and electronically signed by: CHRISTIANO MEDINA MD on Jun 01 2023 1:33PM EST Thank you for allowing us to participate in the care of your patient. Should there be any questions regarding this interpretation, please call [phone]. If you are unable to reach us at the number above, please feel free to contact [facility] at [phone]. [facility] CT Abdomen and Pelvis W cont rast IVOrdered By: [facility] Provider on 06-01-[address] [facility] [address] Chest W contrast [place] IMPRESSION: 1. No evidence of intrathoracic metastases. 2. No interval change since 01/23/23. Transcribe Date/Time: Jun 01 2023 1:15P Dictated by: CHRISTIANO MEDINA MD This examination was interpreted and the report reviewed and electronically signed by: CHRISTIANO MEDINA MD on Jun 01 2023 1:33PM EST Thank you for allowing us to participate in the care of your patient. Should there be any questions regarding this interpretation, please call [phone]. If you are unable to reach us at the number above, please feel free to contact [facility] at [phone]. DIVISION OF RADIOLOGY * * *Final Report* * * DATE OF EXAM: May 31 2023 10:16AM [facility] 0539 - CT CHEST W IVCON / PROCEDURE REASON: Malignant 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) * * * * Physician Interpretation * * * * RESULT: EXAMINATION: CHEST CT WITH CONTRAST CLINICAL HISTORY: Bladder cancer Technique: Spiral CT acquisition of the chest from the thoracic inlet to the upper abdomen following IV contrast. MQ: CTCW_6 Contrast: 150 mL Omnipaque [address] Radiation dose: Integrated Dose-length product (DLP) for this visit = 1030 mGy*cm CT Dose Reduction Employed: Automated exposure control (AEC) Comparison: 01/23/23, 09/25/19 RESULT: Limitations: Left-sided pacemaker Lines, tubes, and devices: None. Lung parenchyma and airways: Subcentimeter nodular opacities measuring less than 5 mm, stable since 09/25/19. For example: Right upper lobe (4:65, 74) Left upper lobe (4:40) Node in the air space opacities. The central airways are patent. Pleural space: No pleural effusion. No pleural thickening. Lower neck, lymph nodes, and mediastinum: The imaged thyroid gland is normal. No lymphadenopathy in the supraclavicular, axillary, mediastinal, or hilar regions. Heart, pericardium, and thoracic vessels: The thoracic aorta and main pulmonary artery are normal in caliber. The cardiac chambers are normal in size. No coronary artery atherosclerotic calcifications are noted, although the study is not optimized for coronary assessment. No pericardial effusion or thickening. Bones and soft tissues: Sclerotic focus in the left lateral sixth rib (3:97), stable since 09/25/19. The osseous abnormalities.. Upper abdomen: Please refer to the abdomen CT scan report for the abdomen findings. Control Valve Technician (topogram) images: No additional findings. DIVISION OF RADIOLOGY Provider, [facility] - 06/01/2023 * * *Final Report* * * DATE OF EXAM: May 31 2023 10:16AM [facility] 0539 - CT CHEST W IVCON / PROCEDURE REASON: Malignant 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) * * * * Physician Interpretation * * * * RESULT: EXAMINATION: CHEST CT WITH CONTRAST CLINICAL HISTORY: Bladder cancer Technique: Spiral CT acquisition of the chest from the thoracic inlet to the upper abdomen following IV contrast. MQ: CTCW_6 Contrast: 150 mL Omnipaque [address] Radiation dose: Integrated Dose-length product (DLP) for this visit = 1030 mGy*cm CT Dose Reduction Employed: Automated exposure control (AEC) Comparison: 01/23/23, 09/25/19 RESULT: Limitations: Left-sided pacemaker Lines, tubes, and devices: None. Lung parenchyma and airways: Subcentimeter nodular opacities measuring less than 5 mm, stable since 09/25/19. For example: Right upper lobe (4:65, 74) Left upper lobe (4:40) Node in the air space opacities. The central airways are patent. Pleural space: No pleural effusion. No pleural thickening. Lower neck, lymph nodes, and mediastinum: The imaged thyroid gland is normal. No lymphadenopathy in the supraclavicular, axillary, mediastinal, or hilar regions. Heart, pericardium, and thoracic vessels: The thoracic aorta and main pulmonary artery are normal in caliber. The cardiac chambers are normal in size. No coronary artery atherosclerotic calcifications are noted, although the study is not optimized for coronary assessment. No pericardial effusion or thickening. Bones and soft tissues: Sclerotic focus in the left lateral sixth rib (3:97), stable since 09/25/19. The osseous abnormalities.. Upper abdomen: Please refer to the abdomen CT scan report for the abdomen findings. Control Valve Technician (topogram) images: No additional findings. IMPRESSION IMPRESSION: 1. No evidence of intrathoracic metastases. 2. No interval change since 01/23/23. Transcribe Date/Time: Jun 01 2023 1:15P Dictated by: CHRISTIANO MEDINA MD This examination was interpreted and the report reviewed and electronically signed by: CHRISTIANO MEDINA MD on Jun 01 2023 1:33PM EST Thank you for allowing us to participate in the care of your patient. Should there be any questions regarding this interpretation, please call [phone]. If you are unable to reach us at the number above, please feel free to contact [facility] eRadiology at [phone]. [facility] No Panel Informationon 05-31 Radiology Study observation (narrative) [facility] Consultation Noteon 04-26-20 Consultation Note [id number]:127 Normal [facility] BNPon 03-10-2023 Natriuretic peptide B (Bld) [Mass/Vol] 1490.0 pg/mL Normal <=1,800.0 [facility] Comment on above: Performed By: #### C K, HSTROPN, CMP, BNP #### [facility] [address] [place] [address] Dr. Tan Oliveros CBC AUTO DIFFon 03-10-2023 BASO # 0.1 103/ul Normal 0.0-0.1 [facility] Comment on above: Performed By: #### C K, HSTROPN, CMP, BNP #### [facility] [address] [place] [address] Dr. Tan Oliveros Basophils/100 WBC (Bld) 0.9 % Normal 0.2-2.0 [facility] Comment on above: Performed By: #### C K, HSTROPN, CMP, BNP #### [facility] [address] [place] [address] Dr. Tan Oliveros EO # 0.1 103/ul Normal 0.0-0.7 [facility] Comment on above: Performed By: #### C K, HSTROPN, CMP, BNP #### [facility] [address] [place] [address] Dr. Tan Oliveros Eosinophils/100 WBC (Bld) 1.6 % Normal 0.9-7.0 [facility] Comment on above: Performed By: #### C K, HSTROPN, CMP, BNP #### [facility] [address] [place] [address] Dr. Tan Oliveros Erythrocyte distribution width (RBC) [Ratio] 14.7 % Normal 11.0-15.0 [facility] Comment on above: Performed By: #### C K, HSTROPN, CMP, BNP #### [facility] [address] [place] [address] Dr. Tan Oliveros Hematocrit (Bld) [Volume fraction] 38.9 % Critically low 42.0-54.0 [facility] Comment on above: Performed By: #### C K, HSTROPN, CMP, BNP #### [facility] [address] [place] [address] Dr. Tan Oliveros Hemoglobin (Bld) [Mass/Vol] 12.8 g/dL Critically low 14.0-18.0 [facility] Comment on above: Performed By: #### C K, HSTROPN, CMP, BNP #### [facility] [address] [place] [address] Dr. Tan Oliveros IG # 0.02 10e3/ul Normal 0.00-0.03 [facility] [place] [facility] Comment on above: Performed By: #### C K, HSTROPN, CMP, BNP #### [facility] [address] [place] [address] Dr. Tan Oliveros IG % 0.3 % Normal 0.0-0.5 [facility] [place] [facility] Comment on above: Performed By: #### C K, HSTROPN, CMP, BNP #### [facility] [address] [place] [address] Dr. Tan Oliveros LYMPH # 0.7 103/ul Critically low 1.2-3.8 [facility] Comment on above: Performed By: #### C K, HSTROPN, CMP, BNP #### [facility] [address] [place] [address] Dr. Tan Oliveros Lymphocytes/100 WBC (Bld) 10.4 % Critically low 20.5-60.0 [facility] [place] [facility] Comment on above: Performed By: #### C K, HSTROPN, CMP, BNP #### [facility] [address] [place] [address] Dr. Tan Oliveros MANUAL DIFF REQ NO Normal [facility] Comment on above: Performed By: #### C K, HSTROPN, CMP, BNP #### [facility] [address] [place] [address] Dr. Tan Oliveros MCH (RBC) [Entitic mass] 27.2 pg Normal 25.9-34.0 [facility] [place] [facility] Comment on above: Performed By: #### C K, HSTROPN, CMP, BNP #### [facility] [address] [place] [address] Dr. Tan Oliveros MCHC (RBC) [Mass/Vol] 32.9 g/dL Normal 29.9-35.2 [facility] Comment on above: Performed By: #### C K, HSTROPN, CMP, BNP #### [facility] [address] [place] [address] Dr. Tan Oliveros MCV (RBC) [Entitic vol] 82.8 fL Normal 80.0-94.0 [facility] Comment on above: Performed By: #### C K, HSTROPN, CMP, BNP #### [facility] [address] [place] [address] Dr. Tan Oliveros MONO # 0.4 103/ul Normal 0.3-0.8 [facility] Comment on above: Performed By: #### C K, HSTROPN, CMP, BNP #### [facility] [address] [place] [address] Dr. Tan Oliveros Monocytes/100 WBC (Bld) 5.8 % Normal 1.7-12.0 [facility] Comment on above: Performed By: #### C K, HSTROPN, CMP, BNP #### [facility] [address] [place] [address] Dr. Tan Oliveros NEUT # 5.2 103/ul Normal 1.4-6.5 [facility] Comment on above: Performed By: #### C K, HSTROPN, CMP, BNP #### [facility] [address] [place] [address] Dr. Tan Oliveros Neutrophils/100 WBC (Bld) 81.0 % Critically high 43.0-75.0 [facility] Comment on above: Performed By: #### C K, HSTROPN, CMP, BNP #### [facility] [address] [place] [address] Dr. Tan Oliveros Platelet mean volume (Bld) [Entitic vol] 9.9 fL Normal 9.5-13.5 [facility] Comment on above: Performed By: #### C K, HSTROPN, CMP, BNP #### [facility] [address] [place] [address] Dr. Tan Oliveros PLT 198 103/ul Normal 150-450 [facility] Comment on above: Performed By: #### C K, HSTROPN, CMP, BNP #### [facility] [address] [place] [address] Dr. Tan Oliveros RBC 4.70 106/ul Normal 4.70-6.10 [facility] Comment on above: Performed By: #### C K, HSTROPN, CMP, BNP #### [facility] [address] [place] [address] Dr. Tan Oliveros WBC 6.4 103/ul Normal 4.0-11.0 [facility] [place] [facility] Comment on above: Performed By: #### C K, HSTROPN, CMP, BNP #### [facility] [address] [place] [address] Dr. Tan Oliveros CPKon 03-10-2023 CK [Catalytic activity/Vol] 152 U/L Normal 39-308 [facility] [place] [facility] Comment on above: Performed By: #### C K, HSTROPN, CMP, BNP #### [facility] [address] [place] [address] Dr. Tan Oliveros PROF 14(COMP METB)on 023 Albumin [Mass/Vol] 3.5 g/dL Normal 3.4-5.0 [facility] Comment on above: Performed By: #### C K, HSTROPN, CMP, BNP #### [facility] [address] [place] [address] Dr. Tan Oliveros Albumin/Globulin [Mass ratio] 1.2 {ratio} [facility] Comment on above: Performed By: #### C K, HSTROPN, CMP, BNP #### [facility] [address] [place] [address] Dr. Tan Oliveros ALP [Catalytic activity/Vol] 69 U/L Normal 46-116 [facility] [place] [facility] Comment on above: Performed By: #### C K, HSTROPN, CMP, BNP #### [facility] [address] [place] [address] Dr. Tan Oliveros ALT [Catalytic activity/Vol] 21 U/L Normal 16-63 [facility] [place] [facility] Comment on above: Performed By: #### C K, HSTROPN, CMP, BNP #### [facility] [address] [place] [address] Dr. Tan Oliveros Anion gap [Moles/Vol] 14.6 mmol/L Normal [facility] [place] [facility] Comment on above: Performed By: #### C K, HSTROPN, CMP, BNP #### [facility] [address] [place] [address] Dr. Tan Oliveros AST [Catalytic activity/Vol] 21 U/L Normal 15-37 [facility] [place] [facility] Comment on above: Performed By: #### C K, HSTROPN, CMP, BNP #### [facility] [address] [place] [address] Dr. Tan Oliveros Bilirubin [Mass/Vol] 0.5 mg/dL Normal 0.2-1.0 [facility] [place] [facility] Comment on above: Performed By: #### C K, HSTROPN, CMP, BNP #### [facility] [address] [place] [address] Dr. Tan Oliveros Calcium [Mass/Vol] 8.7 mg/dL Normal 8.5-10.1 [facility] Comment on above: Performed By: #### C K, HSTROPN, CMP, BNP #### [facility] [address] [place] [address] Dr. Tan Oliveros Chloride [Moles/Vol] 107 mmol/L Normal 98-107 [facility] Comment on above: Performed By: #### C K, HSTROPN, CMP, BNP #### [facility] [address] [place] [address] Dr. Tan Oliveros CO2 [Moles/Vol] 23.1 mmol/L Normal 21.0-32.0 [facility] Comment on above: Performed By: #### C K, HSTROPN, CMP, BNP #### [facility] [address] [place] [address] Dr. Tan Oliveros Creatinine [Mass/Vol] 2.31 mg/dL Critically high 0.70-1.30 [facility] [place] [facility] Comment on above: Performed By: #### C K, HSTROPN, CMP, BNP #### [facility] [address] [place] [address] Dr. Tan Oliveros EGFR-AF RWANDAN 33 mL/min/1.73m2 Critically low >=60 [facility] Comment on above: Performed By: #### C K, HSTROPN, CMP, BNP #### [facility] [address] [address] [address] Tan Oliveros EGFR-NON AF RWANDAN 27 mL/min/1.73m2 Critically low >=60 [facility] [place] [facility] Comment on above: Performed By: #### C K, HSTROPN, CMP, BNP #### [facility] [address] [place] [address] Dr. Tan Oliveros Globulin (S) [Mass/Vol] 2.8 g/dL Normal [facility] [place] [facility] Comment on above: Performed By: #### C K, HSTROPN, CMP, BNP #### [facility] [address] [place] [address] Dr. Tan Oliveros Glucose [Mass/Vol] 123 mg/dL Critically high 74-106 [facility] Comment on above: Performed By: #### C K, HSTROPN, CMP, BNP #### [facility] [address] [place] [address] Dr. Tan Oliveros Potassium [Moles/Vol] 4.7 mmol/L Normal 3.5-5.1 [facility] [place] [facility] Comment on above: Performed By: #### C K, HSTROPN, CMP, BNP #### [facility] [address] [place] [address] Dr. Tan Oliveros Protein [Mass/Vol] 6.3 g/dL Critically low 6.4-8.2 [facility] Comment on above: Performed By: #### C K, HSTROPN, CMP, BNP #### [facility] [address] [place] [address] Dr. Tan Oliveros Sodium [Moles/Vol] 140 mmol/L Normal 136-145 [facility] Comment on above: Performed By: #### C K, HSTROPN, CMP, BNP #### [facility] [address] [place] [address] Dr. Tan Oliveros Urea nitrogen [Mass/Vol] 39.0 mg/dL Critically high 7.0-18.0 [facility] [place] [facility] Comment on above: Performed By: #### C K, HSTROPN, CMP, BNP #### [facility] [address] [place], [place] [address] Dr. Tan Oliveros Urea nitrogen/Creatinine [Mass ratio] 16.9 mg/mg Normal [facility] [place] [facility] Comment on above: Performed By: #### C K, HSTROPN, CMP, BNP #### [facility] [address] [place], [place] [address] Dr. Tan Oliveros TROPONIN, HIGH SENSITIVITYon 03-10-2023 HSTROP 44.5 pg/mL Normal 4.0-76.1 [facility] [place] [facility] Comment on above: Result Comment: CUT- OFF POINTS HAVE BEEN ESTABLISHED BASED ON THE FOURTH UNIVERSAL DEFINITIONS OF MYOCARDIAL INFARCTION. THE UPPER REFERENCE LIMIT (URL) OF TROPONIN, DEFINED THE 99TH PERCENTILE OF cTnI DISTRIBUTION IN A REFERENCE POPULATION, HAS BEEN CONFIRMED THE DECISION THRESHOLD FOR ND DIAGNOSIS. Performed By: #### C K, HSTROPN, CMP, BNP #### [facility] [address] [place], [place] [address] Dr. Tan Oliveros XR CHEST 2 Von [...] by: MIKE MARTÍNEZ Date: 2023-03-10 11:51 Normal [facility] [place] [facility] Consultation Noteon 02-01-20 23 Consultation Note [id number]:127 Normal [facility] CT Chest WO contraston 01-23 IMPRESSION: 1. Since 11/15/2022, resolution of bibasilar pleural effusions. Decreased dependent right lung juxtapleural atelectasis. 2. Unchanged noncalcified pulmonary nodules measuring up to 0.4 cm. 3. No lymphadenopathy. Transcribe Date/Time: Jan 23 2023 3:20P Dictated by: KAYCEE BENEDICT MD This examination was interpreted and the report reviewed and electronically signed by: KAYCEE BENEDICT MD on Jan 23 2023 3:32PM EST Thank you for allowing us to participate in the care of your patient. Should there be any questions regarding this interpretation, please call [phone]. If you are unable to reach us at the number above, please feel free to contact [facility] eRadiology at [phone]. 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 Technique: Spiral CT acquisition of the chest from the thoracic inlet to the upper abdomen without contrast. MQ: CTCWO_6 CT Radiation dose: Integrated Dose-length product (DLP) for this visit = 266 mGy*cm CT Dose Reduction Employed: Automated exposure control (AEC) Comparison: CT chest 11/15/2022; 09/25/2019 RESULT: Limitations: None. Lines, tubes, and devices: None. Lung parenchyma and airways: There is mild right basilar juxtapleural subsegmental atelectasis. No dense airspace consolidation. The central tracheobronchial tree is patent. There are a few nonspecific noncalcified pulmonary nodules, with medical device sales representative examples detailed as follows on series 4: -Image 56, right upper lobe, 0.3 cm (unchanged) -Image 69, right upper lobe, 0.4 cm (unchanged, allowing for differences in regional atelectasis) -Image 34, left upper lobe, 0.3 cm (unchanged) No enlarging suspicious pulmonary nodule is identified. Pleural space: Resolution of previously seen bilateral pleural effusions. Unchanged elevation of the right hemidiaphragm. Lower neck, lymph nodes, and mediastinum: The imaged thyroid is unremarkable. No supraclavicular, axillary, mediastinal or hilar lymphadenopathy. Heart, pericardium, and thoracic vessels: The thoracic aorta and main pulmonary artery are normal in caliber. The cardiac chambers are normal in size. Coronary artery atherosclerotic calcifications are noted, although the study is not optimized for coronary assessment. No pericardial effusion or thickening. Bones and soft tissues: Degenerative changes involve the thoracic spine. No destructive lytic or blastic osseous abnormality. Upper abdomen: No abnormality in the imaged upper abdomen. Unchanged mild nodular thickening of the right adrenal. Status post left nephrectomy. Control Valve Technician (topogram) images: No additional findings. 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 Technique: Spiral CT acquisition of the chest from the thoracic inlet to the upper abdomen without contrast. MQ: CTCWO_6 CT Radiation dose: Integrated Dose-length product (DLP) for this visit = 266 mGy*cm CT Dose Reduction Employed: Automated exposure control (AEC) Comparison: CT chest 11/15/2022; 09/25/2019 RESULT: Limitations: None. Lines, tubes, and devices: None. Lung parenchyma and airways: There is mild right basilar juxtapleural subsegmental atelectasis. No dense airspace consolidation. The central tracheobronchial tree is patent. There are a few nonspecific noncalcified pulmonary nodules, with medical device sales representative examples detailed as follows on series 4: -Image 56, right upper lobe, 0.3 cm (unchanged) -Image 69, right upper lobe, 0.4 cm (unchanged, allowing for differences in regional atelectasis) -Image 34, left upper lobe, 0.3 cm (unchanged) No enlarging suspicious pulmonary nodule is identified. Pleural space: Resolution of previously seen bilateral pleural effusions. Unchanged elevation of the right hemidiaphragm. Lower neck, lymph nodes, and mediastinum: The imaged thyroid is unremarkable. No supraclavicular, axillary, mediastinal or hilar lymphadenopathy. Heart, pericardium, and thoracic vessels: The thoracic aorta and main pulmonary artery are normal in caliber. The cardiac chambers are normal in size. Coronary artery atherosclerotic calcifications are noted, although the study is not optimized for coronary assessment. No pericardial effusion or thickening. Bones and soft tissues: Degenerative changes involve the thoracic spine. No destructive lytic or blastic osseous abnormality. Upper abdomen: No abnormality in the imaged upper abdomen. Unchanged mild nodular thickening of the right adrenal. Status post left nephrectomy. Control Valve Technician (topogram) images: No additional findings. IMPRESSION IMPRESSION: 1. Since 11/15/2022, resolution of bibasilar pleural effusions. Decreased dependent right lung juxtapleural atelectasis. 2. Unchanged noncalcified pulmonary nodules measuring up to 0.4 cm. 3. No lymphadenopathy. Transcribe Date/Time: Jan 23 2023 3:20P Dictated by: KAYCEE BENEDICT MD This examination was interpreted and the report reviewed and electronically signed by: KAYCEE BENEDICT MD on Jan 23 2023 3:32PM EST Thank you for allowing us to participate in the care of your patient. Should there be any questions regarding this interpretation, please call [phone]. If you are unable to reach us at the number above, please feel free to contact [facility] eRadiology at [phone]. [facility] Radiology Study observation (narrative) [facility] CT Chest WO contrastOrdered By: [facility] Provider on 01-23-2023 [facility] ECHOCARDIO M/2D COMPLETEon 0 01-11-2023 ECHOCARDIO M/2D COMPLETE Patient: JUAN JOSE AUSTIN Exam Date: 01/11/2023 : 1940 Gender:M Ordering : DR YOAN SNEED . Admission #: [id number] Family : DR CASEY CASTANEDA M.D. Order #: [id number] CLICK HERE TO VIEW EXAM ECHOCARDIOGRAM REPORT [...] Michel M.D. on 01/11/2023 at 15:32 Normal [facility] [place] [facility] Consent for Procedure/Surger yon 12-20-2022 Consent for Procedure/Surgery [id number]#[id number]:127 Normal [facility] Urology Office/Clinic Noteon 12-18-2022 Urology Office/Clinic Note [...] [facility] [address], [place] [address]- Additional Instructions: PRN Patient Education I, Marisabel [...] tab(s), O (more content not included)... Normal [facility] Comment on above: Result Comment: Elec tronically Signed By: Jian RODRIGUEZ MD R\.br\Date and Time Signed: 12/18/22 12:13 EST\.br\Electronically Co-Signed By: Marisabel Reeves\.br\Date and Time Co-Signed: 12/18/22 12:12 EST CBC AUTO DIFFon 12-08-2022 BASO # 0.1 103/ul Normal 0.0-0.1 [facility] [place] [facility] Comment on above: Performed By: #### C K, HSTROPN, CMP, BNP #### [facility] [address] [address] [address] Tan Oliveros Basophils/100 WBC (Bld) 0.9 % Normal 0.2-2.0 [facility] [place] [facility] Comment on above: Performed By: #### C K, HSTROPN, CMP, BNP #### [facility] [address] [place] [address] Dr. Tan Oliveros EO # 0.2 103/ul Normal 0.0-0.7 [facility] [place] [facility] Comment on above: Performed By: #### C K, HSTROPN, CMP, BNP #### [facility] [address] [place] [address] Dr. Tan Oliveros Eosinophils/100 WBC (Bld) 3.7 % Normal 0.9-7.0 [facility] [place] [facility] Comment on above: Performed By: #### C K, HSTROPN, CMP, BNP #### [facility] [address] [place] [address] Dr. Tan Oliveros Erythrocyte distribution width (RBC) [Ratio] 17.1 % Critically high 11.0-15.0 [facility] [place] [facility] Comment on above: Performed By: #### C K, HSTROPN, CMP, BNP #### [facility] [address] [place] [address] Dr. Tan Oliveros Hematocrit (Bld) [Volume fraction] 38.5 % Critically low 42.0-54.0 [facility] [place] [facility] Comment on above: Performed By: #### C K, HSTROPN, CMP, BNP #### [facility] [address] [place] [address] Dr. Tan Oliveros Hemoglobin (Bld) [Mass/Vol] 12.7 g/dL Critically low 14.0-18.0 [facility] [place] [facility] Comment on above: Performed By: #### C K, HSTROPN, CMP, BNP #### [facility] [address] [place] [address] Dr. Tan Oliveros IG # 0.02 10e3/ul Normal 0.00-0.03 [facility] [place] [facility] Comment on above: Performed By: #### C K, HSTROPN, CMP, BNP #### [facility] [address] [place] [address] Dr. Tan Oliveros IG % 0.4 % Normal 0.0-0.5 [facility] [place] [facility] Comment on above: Performed By: #### C K, HSTROPN, CMP, BNP #### [facility] [address] [address] [address] Tan Oliveros LYMPH # 0.7 103/ul Critically low 1.2-3.8 [facility] Comment on above: Performed By: #### C K, HSTROPN, CMP, BNP #### [facility] [address] [place] [address] Dr. Tan Oliveros Lymphocytes/100 WBC (Bld) 12.3 % Critically low 20.5-60.0 [facility] [place] [facility] Comment on above: Performed By: #### C K, HSTROPN, CMP, BNP #### [facility] [address] [place] [address] Dr. Tan Oliveros MANUAL DIFF REQ NO Normal [facility] Comment on above: Performed By: #### C K, HSTROPN, CMP, BNP #### [facility] [address] [place] [address] Dr. Tan Oliveros MCH (RBC) [Entitic mass] 26.1 pg Normal 25.9-34.0 [facility] [place] [facility] Comment on above: Performed By: #### C K, HSTROPN, CMP, BNP #### [facility] [address] [place] [address] Dr. Tan Oliveros MCHC (RBC) [Mass/Vol] 33.0 g/dL Normal 29.9-35.2 [facility] Comment on above: Performed By: #### C K, HSTROPN, CMP, BNP #### [facility] [address] [place] [address] Dr. Tan Oliveros MCV (RBC) [Entitic vol] 79.2 fL Critically low 80.0-94.0 [facility] Comment on above: Performed By: #### C K, HSTROPN, CMP, BNP #### [facility] [address] [place] [address] Dr. Tan Oliveros MONO # 0.4 103/ul Normal 0.3-0.8 [facility] Comment on above: Performed By: #### C K, HSTROPN, CMP, BNP #### [facility] [address] [place] [address] Dr. Tan Oliveros Monocytes/100 WBC (Bld) 6.5 % Normal 1.7-12.0 [facility] Comment on above: Performed By: #### C K, HSTROPN, CMP, BNP #### [facility] [address] [place] [address] Dr. Tan Oliveros NEUT # 4.3 103/ul Normal 1.4-6.5 [facility] Comment on above: Performed By: #### C K, HSTROPN, CMP, BNP #### [facility] [address] [place] [address] Dr. Tan Oliveros Neutrophils/100 WBC (Bld) 76.2 % Critically high 43.0-75.0 [facility] Comment on above: Performed By: #### C K, HSTROPN, CMP, BNP #### [facility] [address] [place] [address] Dr. Tan Oliveros Platelet mean volume (Bld) [Entitic vol] 9.7 fL Normal 9.5-13.5 [facility] Comment on above: Performed By: #### C K, HSTROPN, CMP, BNP #### [facility] [address] [place] [address] Dr. Tan Oliveros PLT 199 103/ul Normal 150-450 [facility] Comment on above: Performed By: #### C K, HSTROPN, CMP, BNP #### [facility] [address] [place] [address] Dr. Tan Oliveros RBC 4.86 106/ul Normal 4.70-6.10 [facility] Comment on above: Performed By: #### C K, HSTROPN, CMP, BNP #### [facility] [address] [place] [address] Dr. Tan Oliveros WBC 5.7 103/ul Normal 4.0-11.0 [facility] Comment on above: Performed By: #### C K, HSTROPN, CMP, BNP #### [facility] [address] [address] [address] Tan Oliveros CULTURE URINEon 12-08-2022 CULTURE URINE Culture Observations : NO GROWTH. Normal [facility] [place] [facility] Comment on above: Performed By: #### C K, HSTROPN, CMP, BNP #### [facility] [address] [address] [address] Tan Oliveros ER URINE PROFILEon 3 Bilirubin Ql (U) Negative Normal NEGATIVE [facility] Comment on above: Performed By: #### C K, HSTROPN, CMP, BNP #### [facility] [address] [address] [address] Tan Oliveros Clarity (U) CLEAR Normal CLEAR [facility] [place] [facility] Comment on above: Performed By: #### C K, HSTROPN, CMP, BNP #### [facility] [address] [place] [address] Dr. Tan Oliveros Color (U) LT. YELLOW Normal YELLOW [facility] Comment on above: Performed By: #### C K, HSTROPN, CMP, BNP #### [facility] [address] [place] [address] Dr. Tan Oliveros ERUAHD A micrscopic examina tion will be performed if indicated. Normal [facility] [place] [facility] Comment on above: Performed By: #### C K, HSTROPN, CMP, BNP #### [facility] [address] [place] [address] Dr. Tan Oliveros Glucose Ql (U) Negative Normal NEGATIVE [facility] Comment on above: Performed By: #### C K, HSTROPN, CMP, BNP #### [facility] [address] [place] [address] Dr. Tan Oliveros Hemoglobin Ql (U) LARGE Abnormal NEGATIVE [facility] Comment on above: Performed By: #### C K, HSTROPN, CMP, BNP #### [facility] [address] [place] [address] Dr. Tan Oliveros Ketones Ql (U) Negative Normal NEGATIVE [facility] Comment on above: Performed By: #### C K, HSTROPN, CMP, BNP #### [facility] [address] [place] [address] Dr. Tan Oliveros LEUKOCYTES SMALL Abnormal NEGATIVE [facility] [place] [facility] Comment on above: Performed By: #### C K, HSTROPN, CMP, BNP #### [facility] [address] [address] [address] Tan Oliveros Nitrite Ql (U) Negative Normal NEGATIVE [facility] Comment on above: Performed By: #### C K, HSTROPN, CMP, BNP #### [facility] [address] [address] [address] Tan Oliveros pH (U) 6.0 [pH] Normal 5-9 [facility] [place] [facility] Comment on above: Performed By: #### C K, HSTROPN, CMP, BNP #### [facility] [address] [place] [address] Dr. Tan Oliveros SPEC GRAVITY 1.010 Normal 1.005-<=1. 025 [facility] [place] [facility] Comment on above: Performed By: #### C K, HSTROPN, CMP, BNP #### [facility] [address] [place] [address] Dr. Tan Oliveros UA PROTEIN Negative Normal NEGATIVE/ TRACE [facility] Comment on above: Performed By: #### C K, HSTROPN, CMP, BNP #### [facility] [address] [place] [address] Dr. Tan Oliveros UR MICRO IND INDICATED Normal [facility] Comment on above: Performed By: #### C K, HSTROPN, CMP, BNP #### [facility] [address] [place] [address] Dr. Tan Oliveros Urobilinogen Qn (U) 0.2 {Maged'U}/dL Normal 0.2 - 1. 0 [facility] [place] [facility] Comment on above: Performed By: #### C K, HSTROPN, CMP, BNP #### [facility] [address] [place] [address] Dr. Tan Oliveros POINT OF CARE GLUCOSEon 11-15 Glucose [Mass/Vol] 114 mg/dL Critically high 74-106 [facility] Comment on above: Performed By: #### C K, HSTROPN, CMP, BNP #### [facility] [address] [address] [address] Tan Oliveros PROF CHEM 8 (BAS METB)on Anion gap [Moles/Vol] 13.2 mmol/L Normal [facility] [place] [facility] Comment on above: Performed By: #### H STROPN, BMP #### [facility] [address] [place] [address] Dr. Tan Oliveros Calcium [Mass/Vol] 8.9 mg/dL Normal 8.5-10.1 [facility] Comment on above: Performed By: #### H STROPN, BMP #### [facility] [address] [place] [address] Dr. Tan Oliveros Chloride [Moles/Vol] 104 mmol/L Normal 98-107 [facility] [place] [facility] Comment on above: Performed By: #### H STROPN, BMP #### [facility] [address] [place] [address] Dr. Tan Oliveros CO2 [Moles/Vol] 27.1 mmol/L Normal 21.0-32.0 [facility] Comment on above: Performed By: #### H STROPN, BMP #### [facility] [address] [place] [address] Dr. Tan Oliveros Creatinine [Mass/Vol] 2.11 mg/dL Critically high 0.70-1.30 [facility] [place] [facility] Comment on above: Performed By: #### H STROPN, BMP #### [facility] [address] [place] [address] Dr. Tan Oliveros EGFR-AF RWANDAN 37 mL/min/1.73m2 Critically low >=60 [facility] [place] [facility] Comment on above: Performed By: #### H STROPN, BMP #### [facility] [address] [place] [address] Dr. Tan Oliveros EGFR-NON AF RWANDAN 30 mL/min/1.73m2 Critically low >=60 [facility] [place] [facility] Comment on above: Performed By: #### H STROPN, BMP #### [facility] [address] [address] [address] Tan Oliveros Glucose [Mass/Vol] 107 mg/dL Critically high 74-106 [facility] Comment on above: Performed By: #### H STROPN, BMP #### [facility] [address] [address] [address] Tan Oliveros Potassium [Moles/Vol] 4.3 mmol/L Normal 3.5-5.1 [facility] [place] [facility] Comment on above: Performed By: #### H STROPN, BMP #### [facility] [address] [address] [address] Tan Oliveros Sodium [Moles/Vol] 140 mmol/L Normal 136-145 [facility] Comment on above: Performed By: #### H STROPN, BMP #### [facility] [address] [place] [address] Dr. Tan Oliveros Urea nitrogen [Mass/Vol] 32.0 mg/dL Critically high 7.0-18.0 [facility] [place] [facility] Comment on above: Performed By: #### H STROPN, BMP #### [facility] [address] [place] [address] Dr. Tan Oliveros Urea nitrogen/Creatinine [Mass ratio] 15.2 mg/mg Normal [facility] [place] [facility] Comment on above: Performed By: #### H STROPN, BMP #### [facility] [address] [place] [address] Dr. Tan Oliveors TROPONIN, HIGH SENSITIVITYon 12-08-2022 HSTROP 54.6 pg/mL Normal 4.0-76.1 [facility] [place] [facility] Comment on above: Result Comment: CUT- OFF POINTS HAVE BEEN ESTABLISHED BASED ON THE FOURTH UNIVERSAL DEFINITIONS OF MYOCARDIAL INFARCTION. THE UPPER REFERENCE LIMIT (URL) OF TROPONIN, DEFINED THE 99TH PERCENTILE OF cTnI DISTRIBUTION IN A REFERENCE POPULATION, HAS BEEN CONFIRMED THE DECISION THRESHOLD FOR ND DIAGNOSIS. Performed By: #### H STROPN, BMP #### [facility] [address] [place] [address] Dr. Tan Oliveros URINE MICROSCOPIC ONLYon BACTERIA TRACE Abnormal NONE SEEN [facility] [place] [facility] Comment on above: Performed By: #### C K, HSTROPN, CMP, BNP #### [facility] [address] [address] [address] Tan Oliveros Bacteria identified Cx Nom (U) INDICATED Normal [facility] Comment on above: Performed By: #### C K, HSTROPN, CMP, BNP #### [facility] [address] [address] [address] Tan Oliveros CAST NONE SEEN Normal NONE SEEN [facility] Comment on above: Performed By: #### C K, HSTROPN, CMP, BNP #### [facility] [address] [address] [address] Tan Oliveros Crystals LM Nom (Urine sed) NONE SEEN Normal NONE SEEN [facility] Comment on above: Performed By: #### C K, HSTROPN, CMP, BNP #### [facility] [address] [address] [address] Tan Oliveros Epithelial cells LM Ql (Urine sed) RARE Normal NONE SEEN /RARE [facility] Comment on above: Performed By: #### C K, HSTROPN, CMP, BNP #### [facility] [address] [address] [address] Tan Oliveros MUCOUS NONE SEEN Normal NONE SEEN [facility] Comment on above: Performed By: #### C K, HSTROPN, CMP, BNP #### [facility] [address] [address] [address] Tan Oliveros RBC 20-50 Abnormal 0-2 [facility] Comment on above: Performed By: #### C K, HSTROPN, CMP, BNP #### [facility] [address] [address] [address] Tan Oliveros WBC 2-5 Abnormal NONE SEEN [facility] [place] [facility] Comment on above: Performed By: #### C K, HSTROPN, CMP, BNP #### [facility] [address] [address] [address] Tan Oliveros XR CHEST 1 Von 12-08-2022 XR CHEST 1 V EXAM: XR CHEST 1 V HISTORY: SHORTNESS OF BREATH COMPARISON: 02/26/2022 TECHNIQUE: Single view of the FINDINGS: Heart size normal. No focal consolidation, pleural effusion, pulmonary congestion or pneumothorax. IMPRESSION: No acute findings. Electronically authenticated by: AUGUSTINA JAMES Date: 2022-12-08 12:54 Normal [facility] [place] [facility] Screenson 12-06-2022 Screens [id number]:127 Normal [facility] Ambulatory Visit Summaryon 0 12-05-2022 Ambulatory Visit Summary JUAN JOSE AUSTIN :1940 Visit Date:12/05/2022 Ambulatory Visit Instructions Your Diagnosis Enlarged prostate with urinary obstruction Bladder cancer Cancer of kidney Gross hematuria Other obstructive and reflux uropathy Tests Performed Urnls Dip Stick Auto w/o Microscopy POC 00024 Your Care Team Attending Physician - JENNIFER [...] Paz When: Where: [facility] [address] [place] [address]- Medications What How Much When Instructions Unchanged [...] Urnls Dip Stick Auto w/o Microscopy POC 37095 (12/05/2022) Bilirubin Urine Dipstick - Negative Blood Urine Dipstick - 3+ Large Glucose Urine Dipstick - 1+ 250 mg/dl Ketones Urine Dipstick - Negative Leukocytes Urine Dipstick - 1+ Small Nitrite Urine Dipstick - Negative Protein Urine Dipstick - Trace Specific [place] Urine Dipstick - 1.020 Urine Appearance Urine [...] may make (more content not included)... Normal [facility] Patient Educationon 12-05-19 Patient Education Oncology Bladder [...] Follow these instructions at home: ? Take pabt-dds-goorpwg and prescription medicines only as told by [...] important. Where to find more information ? [employer]: www.cancer.org ? [employer] (NCI): www.cancer.gov Contact a health care provider [...] 10/02/2004 Document Revised: 09/12/2018 Document Reviewed: 09/03/2017 [employer] Patient Education ? 2019 [employer] [facility] Urology Office/Clinic Noteon 12-05-2022 Urology Office/Clinic Note [...] reflux uropathy) Follow-up With When Contact Information Jian RODRIGUEZ MD, L [facility] [address] [place] [address]- Additional Instructions: Patient Education Bladder Cancer I, [...] Gross hematuria (more content not included)... Normal [facility] Comment on above: Result Comment: Elec tronically Signed By: Jian RODRIGUEZ MD\.br\Date and Time Signed: 12/05/22 10:43 EST\.br\Electronically Co-Signed By: Priya Moody\.br\Date and Time Co-Signed: 12/05/22 10:40 EST Consultation Noteon 11-27-19 Consultation Note [id number]:127 Normal [facility] CBC AUTO DIFFon 11-09-2022 BASO # 0.1 103/ul Normal 0.0-0.1 [facility] [place] [facility] Comment on above: Performed By: #### C K, HSTROPN, CMP, BNP #### [facility] [address] [place], [place] [address] Dr. Tan Oliveros Basophils/100 WBC (Bld) 0.7 % Normal 0.2-2.0 [facility] [place] [facility] Comment on above: Performed By: #### C K, HSTROPN, CMP, BNP #### [facility] [address] [place] [address] Dr. Tan Oliveros EO # 0.2 103/ul Normal 0.0-0.7 [facility] [place] [facility] Comment on above: Performed By: #### C K, HSTROPN, CMP, BNP #### [facility] [address] [place] [address] Dr. Tan Oliveros Eosinophils/100 WBC (Bld) 2.6 % Normal 0.9-7.0 [facility] Comment on above: Performed By: #### C K, HSTROPN, CMP, BNP #### [facility] [address] [place] [address] Dr. Tan Oliveros Erythrocyte distribution width (RBC) [Ratio] 17.2 % Critically high 11.0-15.0 [facility] [place] [facility] Comment on above: Performed By: #### C K, HSTROPN, CMP, BNP #### [facility] [address] [place] [address] Dr. Tan Oliveros Hematocrit (Bld) [Volume fraction] 43.8 % Normal 42.0-54.0 [facility] [place] [facility] Comment on above: Performed By: #### C K, HSTROPN, CMP, BNP #### [facility] [address] [place] [address] Dr. Tan Oliveros Hemoglobin (Bld) [Mass/Vol] 14.4 g/dL Normal 14.0-18.0 [facility] [place] [facility] Comment on above: Performed By: #### C K, HSTROPN, CMP, BNP #### [facility] [address] [place] [address] Dr. Tan Oliveros IG # 0.01 10e3/ul Normal 0.00-0.03 [facility] Comment on above: Performed By: #### C K, HSTROPN, CMP, BNP #### [facility] [address] [place] [address] Dr. Tan Oliveros IG % 0.1 % Normal 0.0-0.5 [facility] [place] [facility] Comment on above: Performed By: #### C K, HSTROPN, CMP, BNP #### [facility] [address] [place] [address] Dr. Tan Oliveros LYMPH # 1.3 103/ul Normal 1.2-3.8 [facility] Comment on above: Performed By: #### C K, HSTROPN, CMP, BNP #### [facility] [address] [place] [address] Dr. Tan Oliveros Lymphocytes/100 WBC (Bld) 18.4 % Critically low 20.5-60.0 [facility] Comment on above: Performed By: #### C K, HSTROPN, CMP, BNP #### [facility] [address] [place] [address] Dr. Tan Oliveros MANUAL DIFF REQ NO Normal [facility] Comment on above: Performed By: #### C K, HSTROPN, CMP, BNP #### [facility] [address] [place] [address] Dr. Tan Oliveros MCH (RBC) [Entitic mass] 25.0 pg Critically low 25.9-34.0 [facility] Comment on above: Performed By: #### C K, HSTROPN, CMP, BNP #### [facility] [address] [place] [address] Dr. Tan Oliveros MCHC (RBC) [Mass/Vol] 32.9 g/dL Normal 29.9-35.2 [facility] Comment on above: Performed By: #### C K, HSTROPN, CMP, BNP #### [facility] [address] [place] [address] Dr. Tan Oliveros MCV (RBC) [Entitic vol] 75.9 fL Critically low 80.0-94.0 [facility] Comment on above: Performed By: #### C K, HSTROPN, CMP, BNP #### [facility] [address] [place] [address] Dr. Tan Oliveros MONO # 0.5 103/ul Normal 0.3-0.8 [facility] [place] [facility] Comment on above: Performed By: #### C K, HSTROPN, CMP, BNP #### [facility] [address] [address] [address] Tan Oliveros Monocytes/100 WBC (Bld) 7.1 % Normal 1.7-12.0 [facility] Comment on above: Performed By: #### C K, HSTROPN, CMP, BNP #### [facility] [address] [place] [address] Dr. Tan Oliveros NEUT # 5.1 103/ul Normal 1.4-6.5 [facility] Comment on above: Performed By: #### C K, HSTROPN, CMP, BNP #### [facility] [address] [address] [address] Tan Oliveros Neutrophils/100 WBC (Bld) 71.1 % Normal 43.0-75.0 [facility] Comment on above: Performed By: #### C K, HSTROPN, CMP, BNP #### [facility] [address] [place] [address] Dr. Tan Oliveros Platelet mean volume (Bld) [Entitic vol] 9.3 fL Critically low 9.5-13.5 [facility] Comment on above: Performed By: #### C K, HSTROPN, CMP, BNP #### [facility] [address] [place] [address] Dr. Tan Oliveros PLT 209 103/ul Normal 150-450 [facility] Comment on above: Performed By: #### C K, HSTROPN, CMP, BNP #### [facility] [address] [place] [address] Dr. Tan Oliveros RBC 5.77 106/ul Normal 4.70-6.10 [facility] Comment on above: Performed By: #### C K, HSTROPN, CMP, BNP #### [facility] [address] [place] [address] Dr. Tan Oliveros WBC 7.2 103/ul Normal 4.0-11.0 [facility] Comment on above: Performed By: #### C K, HSTROPN, CMP, BNP #### [facility] [address] [address] [address] Tan Oliveros CULTURE URINEon 11-09-2022 CULTURE URINE Culture Observations : NO GROWTH. Normal [facility] [place] [facility] Comment on above: Performed By: #### C K, HSTROPN, CMP, BNP #### [facility] [address] [place] [address] Dr. Tan Oliveros ER URINE PROFILEon 3 Bilirubin Ql (U) Unable to perform te sting due to color interference. Abnormal NEGATIVE [facility] [place] [facility] Comment on above: Performed By: #### C K, HSTROPN, CMP, BNP #### [facility] [address] [place] [address] Dr. Tan Oliveros Clarity (U) CLEAR Normal CLEAR [facility] [place] [facility] Comment on above: Performed By: #### C K, HSTROPN, CMP, BNP #### [facility] [address] [place] [address] Dr. Tan Oliveros Color (U) RED Abnormal YELLOW [facility] [place] [facility] Comment on above: Performed By: #### C K, HSTROPN, CMP, BNP #### [facility] [address] [place] [address] Dr. Tan Oliveros ERUAHD A micrscopic examina tion will be performed if indicated. Normal [facility] [place] [facility] Comment on above: Performed By: #### C K, HSTROPN, CMP, BNP #### [facility] [address] [place] [address] Dr. Tan Oliveros Glucose Ql (U) Unable to perform te sting due to color interference. Abnormal NEGATIVE [facility] [place] [facility] Comment on above: Performed By: #### C K, HSTROPN, CMP, BNP #### [facility] [address] [place] [address] Dr. Tan Oliveros Hemoglobin Ql (U) Unable to perform te sting due to color interference. Abnormal NEGATIVE [facility] [place] [facility] Comment on above: Performed By: #### C K, HSTROPN, CMP, BNP #### [facility] [address] [place] [address] Dr. Tan Oliveros Ketones Ql (U) Unable to perform te sting due to color interference. Abnormal NEGATIVE [facility] [place] [facility] Comment on above: Performed By: #### C K, HSTROPN, CMP, BNP #### [facility] [address] [place] [address] Dr. Tan Oliveros LEUKOCYTES Unable to perform te sting due to color interference. Abnormal NEGATIVE [facility] [place] [facility] Comment on above: Performed By: #### C K, HSTROPN, CMP, BNP #### [facility] [address] [place] [address] Dr. Tan Oliveros Nitrite Ql (U) Unable to perform te sting due to color interference. Abnormal NEGATIVE [facility] [place] [facility] Comment on above: Performed By: #### C K, HSTROPN, CMP, BNP #### [facility] [address] [place] [address] Dr. Tan Oliveros pH Unable to perform te sting due to color interference. Abnormal 5-9 [facility] [place] [facility] Comment on above: Performed By: #### C K, HSTROPN, CMP, BNP #### [facility] [address] [place] [address] Dr. Tan Oliveros SPEC GRAVITY <=1.005 Abnormal 1.005-<=1. 025 [facility] [place] [facility] Comment on above: Performed By: #### C K, HSTROPN, CMP, BNP #### [facility] [address] [place] [address] Dr. Tan Oliveros UA PROTEIN Unable to perform te sting due to color interference. Normal NEGATIVE/ TRACE [facility] Comment on above: Performed By: #### C K, HSTROPN, CMP, BNP #### [facility] [address] [place] [address] Dr. Tan Oliveros UR MICRO IND INDICATED Normal [facility] [place] [facility] Comment on above: Performed By: #### C K, HSTROPN, CMP, BNP #### [facility] [address] [place] [address] Dr. Tan Oliveros UROBILINOGEN Unable to perform te sting due to color interference. Normal 0.2 - 1.0 [facility] [place] [facility] Comment on above: Performed By: #### C K, HSTROPN, CMP, BNP #### [facility] [address] [place] [address] Dr. Tan Oliveros PROF 14(COMP METB)on 023 Albumin [Mass/Vol] 3.8 g/dL Normal 3.4-5.0 [facility] Comment on above: Performed By: #### C K, HSTROPN, CMP, BNP #### [facility] [address] [place] [address] Dr. Tan Oliveros Albumin/Globulin [Mass ratio] 1.3 {ratio} Normal [facility] [place] [facility] Comment on above: Performed By: #### C K, HSTROPN, CMP, BNP #### [facility] [address] [place] [address] Dr. Tan Oliveros ALP [Catalytic activity/Vol] 81 U/L Normal 46-116 [facility] [place] [facility] Comment on above: Performed By: #### C K, HSTROPN, CMP, BNP #### [facility] [address] [place] [address] Dr. Tan Oliveros ALT [Catalytic activity/Vol] 20 U/L Normal 16-63 [facility] [place] [facility] Comment on above: Performed By: #### C K, HSTROPN, CMP, BNP #### [facility] [address] [place] [address] Dr. Tan Oliveros Anion gap [Moles/Vol] 14.3 mmol/L Normal [facility] [place] [facility] Comment on above: Performed By: #### C K, HSTROPN, CMP, BNP #### [facility] [address] [place] [address] Dr. Tan Oliveros AST [Catalytic activity/Vol] 26 U/L Normal 15-37 [facility] [place] [facility] Comment on above: Performed By: #### C K, HSTROPN, CMP, BNP #### [facility] [address] [place] [address] Dr. Tan Oliveros Bilirubin [Mass/Vol] 0.7 mg/dL Normal 0.2-1.0 [facility] [place] [facility] Comment on above: Performed By: #### C K, HSTROPN, CMP, BNP #### [facility] [address] [address] [address] Tan Oliveros Calcium [Mass/Vol] 8.9 mg/dL Normal 8.5-10.1 [facility] Comment on above: Performed By: #### C K, HSTROPN, CMP, BNP #### [facility] [address] [address] [address] Tan Oliveros Chloride [Moles/Vol] 101 mmol/L Normal 98-107 [facility] Comment on above: Performed By: #### C K, HSTROPN, CMP, BNP #### [facility] [address] [place] [address] Dr. Tan Oliveros CO2 [Moles/Vol] 27.9 mmol/L Normal 21.0-32.0 [facility] Comment on above: Performed By: #### C K, HSTROPN, CMP, BNP #### [facility] [address] [place] [address] Dr. Tan Oliveros Creatinine [Mass/Vol] 1.85 mg/dL Critically high 0.70-1.30 [facility] [place] [facility] Comment on above: Performed By: #### C K, HSTROPN, CMP, BNP #### [facility] [address] [place] [address] Dr. Tan Oliveros EGFR-AF RWANDAN 43 mL/min/1.73m2 Critically low >=60 [facility] [place] [facility] Comment on above: Performed By: #### C K, HSTROPN, CMP, BNP #### [facility] [address] [place] [address] Dr. Tan Oliveros EGFR-NON AF RWANDAN 35 mL/min/1.73m2 Critically low >=60 [facility] [place] [facility] Comment on above: Performed By: #### C K, HSTROPN, CMP, BNP #### [facility] [facility] [address] [place] [address] Dr. aTn Oliveros Globulin (S) [Mass/Vol] 3.0 g/dL Normal [facility] Comment on above: Performed By: #### C K, HSTROPN, CMP, BNP #### [facility] [address] [address] [address] Tan Oliveros Glucose [Mass/Vol] 114 mg/dL Critically high 74-106 [facility] Comment on above: Performed By: #### C K, HSTROPN, CMP, BNP #### [facility] [address] [place] [address] Dr. Tan Oliveros Potassium [Moles/Vol] 4.2 mmol/L Normal 3.5-5.1 [facility] Comment on above: Performed By: #### C K, HSTROPN, CMP, BNP #### [facility] [address] [place] [address] Dr. Tan Oliveros Protein [Mass/Vol] 6.8 g/dL Normal 6.4-8.2 [facility] Comment on above: Performed By: #### C K, HSTROPN, CMP, BNP #### [facility] [address] [place] [address] Dr. Tan Oliveros Sodium [Moles/Vol] 139 mmol/L Normal 136-145 [facility] Comment on above: Performed By: #### C K, HSTROPN, CMP, BNP #### [facility] [address] [place] [address] Dr. Tan Oliveros Urea nitrogen [Mass/Vol] 27.0 mg/dL Critically high 7.0-18.0 [facility] Comment on above: Performed By: #### C K, HSTROPN, CMP, BNP #### [facility] [address] [place] [address] Dr. Tan Oliveros Urea nitrogen/Creatinine [Mass ratio] 14.6 mg/mg Normal [facility] Comment on above: Performed By: #### C K, HSTROPN, CMP, BNP #### [facility] [address] [place] [address] Dr. Tan Oliveros PROTIMEon 11-09-2022 INR Coag (PPP) [Relative time] 0.99 {INR} Normal [facility] Comment on above: Performed By: #### C K, HSTROPN, CMP, BNP #### [facility] [address] [place] [address] Dr. Tan Oliveros INR GUIDELINES SEE BELOW Normal [facility] Comment on above: Result Comment: TYRELL RED INR: 2.0 - 3.0 CONDITIONS NOT LISTED BELOW 2.5 - 3.5 FOR PROSTHETIC HEART VALVE REPLACEMENT 2.5 - 3.5 RECURRENT THROMBOSIS Performed By: #### C K, HSTROPN, CMP, BNP #### [facility] [address] [place] [address] Dr. Tan Oliveros PT Coag (PPP) [Time] 10.5 s Normal 9.0-11.6 [facility] Comment on above: Performed By: #### C K, HSTROPN, CMP, BNP #### [facility] [address] [place] [address] Dr. Tan Oliveros PTTon 11-09-2022 aPTT Coag (Bld) [Time] 28.4 s Normal 22.3-36.2 [facility] Comment on above: Performed By: #### C K, HSTROPN, CMP, BNP #### [facility] [address] [place] [address] Dr. Tan Oliveros URINE MICROSCOPIC ONLYon BACTERIA TRACE Abnormal NONE SEEN [facility] Comment on above: Performed By: #### C K, HSTROPN, CMP, BNP #### [facility] [address] [place] [address] Dr. Tan Oliveros Bacteria identified Cx Nom (U) CX ALREADY ORDERED Normal [facility] Comment on above: Performed By: #### C K, HSTROPN, CMP, BNP #### [facility] [address] [place] [address] Dr. Tan Oliveros CAST NONE SEEN Normal NONE SEEN [facility] Comment on above: Performed By: #### C K, HSTROPN, CMP, BNP #### [facility] [address] [place] [address] Dr. Tan Oliveros Crystals LM Nom (Urine sed) NONE SEEN Normal NONE SEEN [facility] Comment on above: Performed By: #### C K, HSTROPN, CMP, BNP #### [facility] [address] [place] [address] Dr. Tan Oliveros Epithelial cells LM Ql (Urine sed) NONE SEEN Normal NONE SEEN /RARE [facility] Comment on above: Performed By: #### C K, HSTROPN, CMP, BNP #### [facility] [address] [place] [address] Dr. Tan Oliveros MUCOUS NONE SEEN Normal NONE SEEN [facility] Comment on above: Performed By: #### C K, HSTROPN, CMP, BNP #### [facility] [address] [place] [address] Dr. Tan Oliveros RBC (U) [#/Vol] /uL Abnormal 0-2 [facility] Comment on above: Performed By: #### C K, HSTROPN, CMP, BNP #### [facility] [address] [place] [address] Dr. Tan Oliveros WBC 0-2 Abnormal NONE SEEN [facility] Comment on above: Performed By: #### C K, HSTROPN, CMP, BNP #### [facility] [address] [place] [address] Dr. Tan Oliveros INSULINon 09-27-2022 Insulin 13.4 uIU/mL Normal 2.6-24.9 [facility] Comment on above: Performed By: #### C K, HSTROPN, CMP, BNP #### [facility] [address] [place] [address] Dr. Tan Oliveros BNPon 09-26-2022 Natriuretic peptide B (Bld) [Mass/Vol] 715.0 pg/mL Normal <=1,800.0 [facility] Comment on above: Performed By: #### C K, HSTROPN, CMP, BNP #### [facility] [address] [place] [address] Dr. Tan Oliveros CBC AUTO DIFFon 09-26-2022 BASO # 0.0 103/ul Normal 0.0-0.1 [facility] Comment on above: Performed By: #### C K, HSTROPN, CMP, BNP #### [facility] [address] [place] [address] Dr. Tan Oliveros Basophils/100 WBC (Bld) 0.7 % Normal 0.2-2.0 [facility] Comment on above: Performed By: #### C K, HSTROPN, CMP, BNP #### [facility] [address] [place] [address] Dr. Tan Oliveros EO # 0.1 103/ul Normal 0.0-0.7 [facility] Comment on above: Performed By: #### C K, HSTROPN, CMP, BNP #### [facility] [address] [place] [address] Dr. Tan Oliveros Eosinophils/100 WBC (Bld) 2.1 % Normal 0.9-7.0 [facility] Comment on above: Performed By: #### C K, HSTROPN, CMP, BNP #### [facility] [address] [place] [address] Dr. Tan Oliveros Erythrocyte distribution width (RBC) [Ratio] 15.9 % Critically high 11.0-15.0 [facility] Comment on above: Performed By: #### C K, HSTROPN, CMP, BNP #### [facility] [address] [place] [address] Dr. Tan Oliveros Hematocrit (Bld) [Volume fraction] 45.1 % Normal 42.0-54.0 [facility] Comment on above: Performed By: #### C K, HSTROPN, CMP, BNP #### [facility] [address] [place] [address] Dr. Tan Oliveros Hemoglobin (Bld) [Mass/Vol] 14.1 g/dL Normal 14.0-18.0 [facility] Comment on above: Performed By: #### C K, HSTROPN, CMP, BNP #### [facility] [address] [place] [address] Dr. Tan Oliveros IG # 0.02 10e3/ul Normal 0.00-0.03 [facility] Comment on above: Performed By: #### C K, HSTROPN, CMP, BNP #### [facility] [address] [address] [address] Tan Oliveros IG % 0.3 % Normal 0.0-0.5 [facility] Comment on above: Performed By: #### C K, HSTROPN, CMP, BNP #### [facility] [address] [address] [address] Tan Oliveros LYMPH # 0.7 103/ul Critically low 1.2-3.8 [facility] Comment on above: Performed By: #### C K, HSTROPN, CMP, BNP #### [facility] [address] [place] [address] Dr. Tan Oliveros Lymphocytes/100 WBC (Bld) 12.4 % Critically low 20.5-60.0 [facility] Comment on above: Performed By: #### C K, HSTROPN, CMP, BNP #### [facility] [address] [place] [address] Dr. Tan Oliveros MANUAL DIFF REQ NO Normal [facility] Comment on above: Performed By: #### C K, HSTROPN, CMP, BNP #### [facility] [address] [place] [address] Dr. Tan Oliveros MCH (RBC) [Entitic mass] 23.7 pg Critically low 25.9-34.0 [facility] Comment on above: Performed By: #### C K, HSTROPN, CMP, BNP #### [facility] [address] [place] [address] Dr. Tan Oliveros MCHC (RBC) [Mass/Vol] 31.3 g/dL Normal 29.9-35.2 [facility] Comment on above: Performed By: #### C K, HSTROPN, CMP, BNP #### [facility] [address] [place] [address] Dr. Tan Oliveros MCV (RBC) [Entitic vol] 75.7 fL Critically low 80.0-94.0 [facility] Comment on above: Performed By: #### C K, HSTROPN, CMP, BNP #### [facility] [address] [place], [place] [id number] Dr. Tan Oliveros MONO # 0.4 103/ul Normal 0.3-0.8 [facility] Comment on above: Performed By: #### C K, HSTROPN, CMP, BNP #### [facility] [address] [place] [address] Dr. Tan Oliveros Monocytes/100 WBC (Bld) 6.8 % Normal 1.7-12.0 [facility] Comment on above: Performed By: #### C K, HSTROPN, CMP, BNP #### [facility] [address] [place] [address] Dr. Tan Oliveros NEUT # 4.5 103/ul Normal 1.4-6.5 [facility] Comment on above: Performed By: #### C K, HSTROPN, CMP, BNP #### [facility] [address] [place] [address] Dr. Tan Oliveros Neutrophils/100 WBC (Bld) 77.7 % Critically high 43.0-75.0 [facility] Comment on above: Performed By: #### C K, HSTROPN, CMP, BNP #### [facility] [address] [place] [address] Dr. Tan Oliveros Platelet mean volume (Bld) [Entitic vol] 9.3 fL Critically low 9.5-13.5 [facility] Comment on above: Performed By: #### C K, HSTROPN, CMP, BNP #### [facility] [address] [place] [address] Dr. Tan Oliveros PLT 205 103/ul Normal 150-450 [facility] Comment on above: Performed By: #### C K, HSTROPN, CMP, BNP #### [facility] [address] [place] [address] Dr. Tan Oliveros RBC 5.96 106/ul Normal 4.70-6.10 [facility] Comment on above: Performed By: #### C K, HSTROPN, CMP, BNP #### [facility] [address] [place] [address] Dr. Tan Oliveros WBC 5.7 103/ul Normal 4.0-11.0 [facility] Comment on above: Performed By: #### C K, HSTROPN, CMP, BNP #### [facility] [address] [address] [address] Tan Oliveros FREE THYROXINE INDEX T7on FTI 2.34 Normal 1.30-4.50 [facility] Comment on above: Performed By: #### C K, HSTROPN, CMP, BNP #### [facility] [address] [address] [address] Tan Oliveros T3U 36.0 % Normal 33.0-40.0 [facility] Comment on above: Performed By: #### C K, HSTROPN, CMP, BNP #### [facility] [address] [place] [address] Dr. Tan Oliveros T4 [Mass/Vol] 6.50 ug/dL Normal 4.50-12.10 [facility] Comment on above: Performed By: #### C K, HSTROPN, CMP, BNP #### [facility] [address] [place] [address] Dr. Tan Oliveros GLYCOHEMOGLOBIN A1Con 2021 ADA RECOMMENDATION SEE BELOW Normal [facility] Comment on above: Result Comment: ADA RECOMMENDED LIMIT 4.0 - 6.0 ADA THERAPEUTIC TARGET < 7.0 ACTION SUGGESTED > 7.0 Performed By: #### C K, HSTROPN, CMP, BNP #### [facility] [address] [address] [address] Tan Oliveros Glucose [Mass/Vol] 114 mg/dL Normal [facility] Comment on above: Performed By: #### C K, HSTROPN, CMP, BNP #### [facility] [address] [place] [address] Dr. Tan Oliveros HbA1c (Bld) [Mass fraction] 5.6 % Normal 4.5-6.2 [facility] Comment on above: Performed By: #### C K, HSTROPN, CMP, BNP #### [facility] [address] [address] [address] Tna Oliveros IRONon 09-26-2022 Iron [Mass/Vol] 40.0 ug/dL Critically low 65.0-175.0 [facility] Comment on above: Performed By: #### I LASHAE, PSASC, VITAD #### [facility] [address] [address] [address] Tan Oliveros LIPID PROFILEon 09-26-2022 CHOL-HDL RATIO NORM SEE BELOW Normal [facility] Comment on above: Result Comment: 3.3 - 4.4 LOW RISK 4.4 - 7.1 AVERAGE RISK 7.1 - 11.0 MODERATE RISK >11.0 HIGH RISK Performed By: #### B WAREHOUSE DIRECTOR, T7, CMP, TSH, LIPID #### [facility] [address] [place] [address] Dr. Tan Oliveros Cholesterol [Mass/Vol] 159 mg/dL Normal <=200 [facility] Comment on above: Performed By: #### B WAREHOUSE DIRECTOR, T7, CMP, TSH, LIPID #### [facility] [address] [address] [address] Tan Oliveros Cholesterol in HDL [Mass/Vol] 66 mg/dL Critically high 40-60 [facility] Comment on above: Performed By: #### B WAREHOUSE DIRECTOR, T7, CMP, TSH, LIPID #### [facility] [address] [address] [address] Tan Oliveros Cholesterol in LDL [Mass/Vol] 82.4 mg/dL Normal [facility] Comment on above: Performed By: #### B WAREHOUSE DIRECTOR, T7, CMP, TSH, LIPID #### [facility] [address] [address] [address] Tan Oliveros Cholesterol.total/Ch olesterol in HDL [Mass ratio] 2.4 {ratio} Normal [facility] Comment on above: Performed By: #### B WAREHOUSE DIRECTOR, T7, CMP, TSH, LIPID #### [facility] [address] [address] [address] Tan Oliveros HDL NORMAL > or = 60 mg/dl - LO W CARDIOVASCULAR RISK <40 mg/dl - HIGH CARDIOVASCULAR RISK Normal [facility] Comment on above: Performed By: #### B WAREHOUSE DIRECTOR, T7, CMP, TSH, LIPID #### [facility] [address] [address] [address] Tan Oliveros LDL CALC NORMAL SEE BELOW Normal [facility] Comment on above: Result Comment: <100 mg/dl OPTIMAL 100 - 129 mg/dl NEAR OR ABOVE OPTIMAL 130 - 159 mg/dl BORDERLINE HIGH 160 - 189 mg/dl HIGH >190 mg/dl VERY HIGH Performed By: #### B WAREHOUSE DIRECTOR, T7, CMP, TSH, LIPID #### [facility] [address] [address] [address] Tan Oliveros Triglyceride [Mass/Vol] 53 mg/dL Normal <=150 [facility] Comment on above: Performed By: #### B WAREHOUSE DIRECTOR, T7, CMP, TSH, LIPID #### [facility] [address] [address] [address] Tan Oliveros VLDL CALC 10.6 mg/dL Normal [facility] Comment on above: Performed By: #### B WAREHOUSE DIRECTOR, T7, CMP, TSH, LIPID #### [facility] [address] [address] [address] Tan Oliveros PROF 14(COMP METB)on 022 Albumin [Mass/Vol] 3.9 g/dL Normal 3.4-5.0 [facility] Comment on above: Performed By: #### C K, HSTROPN, CMP, BNP #### [facility] [address] [address] [address] Tan Oliveros Albumin/Globulin [Mass ratio] 1.2 {ratio} Normal [facility] Comment on above: Performed By: #### C K, HSTROPN, CMP, BNP #### [facility] [address] [address] [address] Tan Oliveros ALP [Catalytic activity/Vol] 94 U/L Normal 46-116 [facility] Comment on above: Performed By: #### C K, HSTROPN, CMP, BNP #### [facility] [address] [address] [address] Tan Oliveros ALT [Catalytic activity/Vol] 17 U/L Normal 16-63 [facility] Comment on above: Performed By: #### C K, HSTROPN, CMP, BNP #### [facility] [address] [place] [address] Dr. Tan Oliveros Anion gap [Moles/Vol] 12.9 mmol/L Normal [facility] Comment on above: Performed By: #### C K, HSTROPN, CMP, BNP #### [facility] [address] [place] [address] Dr. Tan Oliveros AST [Catalytic activity/Vol] 20 U/L Normal 15-37 [facility] Comment on above: Performed By: #### C K, HSTROPN, CMP, BNP #### [facility] [address] [place] [address] Dr. Tan Oliveros Bilirubin [Mass/Vol] 0.4 mg/dL Normal 0.2-1.0 [facility] Comment on above: Performed By: #### C K, HSTROPN, CMP, BNP #### [facility] [address] [place] [address] Dr. Tan Oliveros Calcium [Mass/Vol] 9.1 mg/dL Normal 8.5-10.1 [facility] Comment on above: Performed By: #### C K, HSTROPN, CMP, BNP #### [facility] [address] [place] [address] Dr. Tan Oliveros Chloride [Moles/Vol] 106 mmol/L Normal 98-107 [facility] Comment on above: Performed By: #### C K, HSTROPN, CMP, BNP #### [facility] [address] [place] [address] Dr. Tan Oliveros CO2 [Moles/Vol] 29.1 mmol/L Normal 21.0-32.0 [facility] Comment on above: Performed By: #### C K, HSTROPN, CMP, BNP #### [facility] [address] [place] [address] Dr. Tan Oliveros Creatinine [Mass/Vol] 1.98 mg/dL Critically high 0.70-1.30 [facility] Comment on above: Performed By: #### C K, HSTROPN, CMP, BNP #### [facility] [address] [address] [address] Tan Oliveros EGFR-AF RWANDAN 39 mL/min/1.73m2 Critically low >=60 [facility] Comment on above: Performed By: #### C K, HSTROPN, CMP, BNP #### [facility] [address] [place] [address] Dr. Tan Oliveros EGFR-NON AF RWANDAN 32 mL/min/1.73m2 Critically low >=60 [facility] Comment on above: Performed By: #### C K, HSTROPN, CMP, BNP #### [facility] [address] [place] [address] Dr. Tan Oliveros Globulin (S) [Mass/Vol] 3.3 g/dL Normal [facility] Comment on above: Performed By: #### C K, HSTROPN, CMP, BNP #### [facility] [address] [place] [address] Dr. Tan Oliveros Glucose [Mass/Vol] 108 mg/dL Critically high 74-106 [facility] Comment on above: Performed By: #### C K, HSTROPN, CMP, BNP #### [facility] [address] [place] [address] Dr. Tan Oliveros Potassium [Moles/Vol] 4.0 mmol/L Normal 3.5-5.1 [facility] Comment on above: Performed By: #### C K, HSTROPN, CMP, BNP #### [facility] [address] [place] [address] Dr. Tan Oliveros Protein [Mass/Vol] 7.2 g/dL Normal 6.4-8.2 [facility] Comment on above: Performed By: #### C K, HSTROPN, CMP, BNP #### [facility] [address] [place] [address] Dr. Tan Oliveros Sodium [Moles/Vol] 144 mmol/L Normal 136-145 [facility] Comment on above: Performed By: #### C K, HSTROPN, CMP, BNP #### [facility] [address] [address] [address] Tan Oliveros Urea nitrogen [Mass/Vol] 43.0 mg/dL Critically high 7.0-18.0 [facility] Comment on above: Performed By: #### C K, HSTROPN, CMP, BNP #### [facility] [address] [address] [address] Tan Oliveros Urea nitrogen/Creatinine [Mass ratio] 21.7 mg/mg Normal [facility] Comment on above: Performed By: #### C K, HSTROPN, CMP, BNP #### [facility] [address] [place] [address] Dr. Tan Oliveros TSHon 09-26-2022 TSH 2.331 uIU/mL Normal 0.358-3.74 0 [facility] Comment on above: Performed By: #### Emir Wagner, HSTROPElke, CMP, BNP #### [facility] [address] [address] [address] Tan Oliveros VITAMIN D 25 OHon 09-26-2022 VIT D 25-OH 40.9 ng/mL Normal [facility] Comment on above: Performed By: #### I MARY BHARDWAJ, VITAD #### [facility] [address] [place] [address] Dr. Tan Oliveros VIT D RANGES SEE BELOW Normal [facility] Comment on above: Result Comment: <20 ng/mL Vit D deficient 20 - <30 ng/mL Vit D insufficient 30 - 100 ng/mL Vit D sufficient >100 ng/mL Potential Toxicity Performed By: #### I MARY BHARDWAJ, VITAD #### [facility] [address] [address] [address] Tan Oliveros URINALYSIS, REFLEX MICROSCOP ICon 09-12-2022 Bilirubin Ql (U) Negative Negative [facility] Clarity (Unsp spec) Cloudy Abnormal Clear [facility] Color (U) Light Ogle Abnormal Yellow [facility] Glucose Test strip (U) [Mass/Vol] 4+ Abnormal Negative [facility] Hemoglobin Ql (U) 3+ Abnormal Negative [facility] Hyaline casts (Urine sed) [#/Area] 1-3 /LPF Abnormal 0 /LPF [facility] Ketones Ql (U) Negative Negative [facility] Leukocyte esterase Test strip Ql (U) Negative Negative [facility] Nitrite Ql (U) Negative Negative [facility] pH (U) 5.5 [pH] 5.0 - 8.0 [facility] Protein (U) [Mass/Vol] 1+ Abnormal Negative [facility] RBC LM.HPF (Urine sed) [#/Area] /[HPF] Abnormal 0-3 /HPF [facility] Specific gravity (U) [Rel density] 1.019 1.005 - 1.030 [facility] Urobilinogen Ql (U) Negative Negative [facility] WBC LM.HPF (Urine sed) [#/Area] 0-5 /HPF 0-5 /HPF [facility] URINE CULTUREon 03-17-2022 Bacteria identified Cx Nom (U) No growth (<1,000 CFU/ml) [facility] TYPE AND SCREEN,30 DAYon ABO O [facility] HIstorical Ab Scr Status Negative [facility] Rh Nom (Bld) Positive [facility] CT UROGRAM WO/W IVCONon 09-2 [facility] Dipstick and Microscopicon 0 02-23-2019 Appearance Nom (U) Cloudy Critically abnormal Clear [facility] Comment on above: Order Comment: Name Collection Type:: Clean-Voided Midstream Performed By: #### A DDONUAPLUS, CUU #### [facility] [address] [place] [address] [place] Bacteria LM.HPF #/area (Urine sed) None Seen Normal None Seen [facility] Comment on above: Order Comment: Name Collection Type:: Clean-Voided Midstream Performed By: #### A DDONUAPLUS, CUU #### [facility] [address] [id number] [place] Bilirubin,Urine Negative Normal Negative [facility] Comment on above: Order Comment: Name Collection Type:: Clean-Voided Midstream Performed By: #### A DDONUAPLUS, CUU #### [facility] [address] [id number] [place] Color Nom (U) Yellow Normal Yellow [facility] Comment on above: Order Comment: Name Collection Type:: Clean-Voided Midstream Performed By: #### A DDONUAPLUS, CUU #### [address] Glucose Ql (U) Normal Normal Normal [facility] Comment on above: Order Comment: Name Collection Type:: Clean-Voided Midstream Performed By: #### A DDONUAPLUS, CUU #### [address] Hyaline Casts,Urine 0-8 Normal 0-8 [facility] Comment on above: Order Comment: Name Collection Type:: Clean-Voided Midstream Result Comment: PERF ORMED BY: [place] [address] PATHOLOGIST BRIM RAISER LEONARD MCCLAIN M.D. Performed By: #### A DDONUAPLUS, CUU #### [address] Ketones Ql (U) Negative Normal Negative [facility] Comment on above: Order Comment: Name Collection Type:: Clean-Voided Midstream Performed By: #### A DDONUAPLUS, CUU #### [address] Leukocyte esterase Test strip Ql (U) 4+ High Negative [facility] Comment on above: Order Comment: Name Collection Type:: Clean-Voided Midstream Performed By: #### A DDONUAPLUS, CUU #### [place] [address] [place] Nitrite,Urine Negative Normal Negative [facility] Comment on above: Order Comment: Name Collection Type:: Clean-Voided Midstream Performed By: #### A DDONUAPLUS, CUU #### [address] Occult Blood,Urine 3+ High Negative [facility] Comment on above: Order Comment: Name Collection Type:: Clean-Voided Midstream Result Comment: PERF ORMED BY: [place] [id number] PATHOLOGIST BRIM RAISER LEONARD MCCLAIN M.D. Performed By: #### A DDONUAPLUS, CUU #### [address] pH (U) 7.0 [pH] Normal 5.0-9.0 [facility] Comment on above: Order Comment: Name Collection Type:: Clean-Voided Midstream Performed By: #### A DDONUAPLUS, CUU #### [address] Protein mass conc (U) 30 mg/dL High Negative [facility] Comment on above: Order Comment: Name Collection Type:: Clean-Voided Midstream Performed By: #### A DDONUAPLUS, CUU #### [address] RBC LM.HPF #/area (Urine sed) Innumerable High 0-4 [facility] Comment on above: Order Comment: Name Collection Type:: Clean-Voided Midstream Performed By: #### A DDONUAPLUS, CUU #### [address] Specificy [place],Urine 1.013 Normal 1.001-1.03 0 [facility] Comment on above: Order Comment: Name Collection Type:: Clean-Voided Midstream Performed By: #### A DDONUAPLUS, CUU #### [address] Squamous Epithelial Cell,Urine None Seen Normal 0-2 [facility] Comment on above: Order Comment: Name Collection Type:: Clean-Voided Midstream Performed By: #### A DDONUAPLUS, CUU #### [address] Urobilinogen,Urine Normal Normal Normal [facility] Comment on above: Order Comment: Name Collection Type:: Clean-Voided Midstream Performed By: #### A DDONUAPLUS, CUU #### [address] WBC LM.HPF #/area (Urine sed) Innumerable High 0-4 [facility] Comment on above: Order Comment: Name Collection Type:: Clean-Voided Midstream Performed By: #### A JAMAR MALDONADO #### [facility] [address] [id number] [facility] Taj 02-23-2019 L ------- Specimen: [id number] Received: 02/23/19 Status: MALCOLM Josué Num: [id number] Spec Type: Cytology Subm Dr: Jian Rodriguez MD Tissues: A CYTOSLIDE (URINE) Procedures: Pap Stain/2 Patient Age/Sex Location Account Attending Physician Juan Jose Austin Sr 78/M ALESSANDRO [id number] Jian Rodriguez MD SPEC NUM: [id number] RECD: 02/23/19 STATUS: MALCOLM MENDEZ NUM: [id number] ALEKSANDR: 02/23/[address] [facility] [address]: Jian Rodriguez MD ENTERED: 02/23/[address] [facility] [address]: SPEC TYPE: Cytology DEPT: CN ORDERED: Pap Stain/2 ORDERED: Pap Stain/2 Pathological [...] examined. Microscopic examination supports the pathologic diagnosis. [id number] Specimen: [id number] Received: 02/23/19 Status: MALCOLM Josué Num: [id number] Spec Type: Cytology [facility] Dr: Jian Rodriguez MD Tissues: A CYTOSLIDE (URINE) Procedures: Pap Stain/2 Patient: Juan Jose Austin Shirley Franklin [id number] (Continued) Signed (signature on file) Julio Cesar Carr MD 02/24/19 1700 [facility] Urine Cultureon 02-23-2019 Bacteria identified Cx Nom (U) ORGANISM: Pseudomonas aeruginosa (O:PSEAER) Peyton Count >100,000 100,000 CFU/ML OTHER MIXED BACTERIAL SKIN CONTAMINANTS Aerobic ADONAY Charge (Neg) SUSCEPTIBILITY ORGANISM: O:PSEAER ANTIBIOTIC INTERPRETATION ADONAY Amikacin S <16 Aztreonam IB <8 Cefepime S <8 Ceftazidime IB 4 Ciprofloxacin S <1 Gentamicin I 8 Levofloxacin S <2 Meropenem S <4 Piperacillin/Tazobactam IB <16 Tobramycin S <4 S = [...] RESISTANT TO ALL B-LACTAM DRUGS. PERFORMED BY: [address] [id number] PATHOLOGIST BRIM RAISER LEONARD MCCLAIN M.D. [facility] Comment on above: Performed By: #### A JAMAR MALDONADO #### [address] [id number] [facility] Vital Signs Date Time Vital Sign Value Performing Clinician Nabil butler 05-17-2025 08:47-0400 Body temperature 98.4 [degF] Pennie Ball SUPERINTENDENT MAINTENANCE-OUTSIDE MACHINIST Work Phone: [facility] 05-17-2025 08:47-0400 Diastolic blood pressure 83 mm[Hg] Pennie Ball SUPERINTENDENT MAINTENANCE-OUTSIDE MACHINIST Work Phone: [facility] [employer] 05-17-2025 08:47-0400 Heart rate 74 /min Pennie Ball SUPERINTENDENT MAINTENANCE-OUTSIDE MACHINIST Work Phone: [employer] 05-17-2025 08:47-0400 Respiratory rate 18 /min Pennie Ball SUPERINTENDENT MAINTENANCE-OUTSIDE MACHINIST Work Phone: [employer] 05-17-2025 08:47-0400 Systolic blood pressure 168 mm[Hg] Pennie Ball SUPERINTENDENT MAINTENANCE-OUTSIDE MACHINIST Work Phone: [employer] 05-08-2025 10:04-0400 Body height 162.6 cm Jayla Dechristopher SUPERINTENDENT MAINTENANCE-OUTSIDE MACHINIST Work Phone: [employer] 05-08-2025 10:04-0400 Body mass index (BMI) [Ratio] 27.98 kg/m2 Jayla Dechristopher SUPERINTENDENT MAINTENANCE-OUTSIDE MACHINIST Work Phone: [employer] 05-08-2025 10:04-0400 Body weight 73.94 kg Jayla Dechristopher SUPERINTENDENT MAINTENANCE-OUTSIDE MACHINIST Work Phone: [employer] 05-08-2025 10:04-0400 Diastolic blood pressure 82 mm[Hg] Jayla Dechristopher SUPERINTENDENT MAINTENANCE-OUTSIDE MACHINIST Work Phone: [facility] [employer] [facility] 05-08-2025 10:04-0400 Heart rate 71 /min Jayla Hernandez SUPERINTENDENT MAINTENANCE-OUTSIDE MACHINIST Work Phone: [facility] [employer] [facility] 05-08-2025 10:04-0400 SaO2% (BldA) [Mass fraction] 98 % Jayla Hernandez SUPERINTENDENT MAINTENANCE-OUTSIDE MACHINIST Work Phone: [facility] [employer] [facility] 05-08-2025 10:04-0400 Systolic blood pressure 124 mm[Hg] Jayla Hernandez SUPERINTENDENT MAINTENANCE-OUTSIDE MACHINIST Work Phone: [facility] [employer] [facility] 05-03-2025 15:01-0400 Body temperature 98.6 [degF] Pennie Avalos SUPERINTENDENT MAINTENANCE-OUTSIDE MACHINIST Work Phone: [facility] [employer] [facility] 05-03-2025 15:01-0400 Diastolic blood pressure 93 mm[Hg] Pennie Avalos SUPERINTENDENT MAINTENANCE-OUTSIDE MACHINIST Work Phone: [facility] [employer] [facility] 05-03-2025 15:01-0400 Heart rate 75 /min Pennie Avalos SUPERINTENDENT MAINTENANCE-OUTSIDE MACHINIST Work Phone: [facility] [employer] [facility] 05-03-2025 15:01-0400 Respiratory rate 18 /min Pennie Avalos SUPERINTENDENT MAINTENANCE-OUTSIDE MACHINIST Work Phone: [facility] [employer] [facility] 05-03-2025 15:01-0400 Systolic blood pressure 167 mm[Hg] Pennie Avalos SUPERINTENDENT MAINTENANCE-OUTSIDE MACHINIST Work Phone: [facility] 10-23-2024 09:01-0500 Body mass index (BMI) [Ratio] 29.23 kg/m2 Caesar Vazquez MD Work Phone: [facility] 10-23-2024 09:01-0500 Body temperature 97.7 [degF] Caesar Vazquez MD Work Phone: [facility] 10-23-2024 09:01-0500 Body weight 76.7 kg Caesar Vazquez MD Work Phone: [facility] 10-23-2024 09:01-0500 Diastolic blood pressure 76 mm[Hg] Caesar Vazquez MD Work Phone: [facility] 10-23-2024 09:01-0500 Heart rate 63 /min Caesar Vazquez MD Work Phone: [facility] 10-23-2024 09:01-0500 Respiratory rate 18 /min Caesar Vazquez MD Work Phone: [facility] 10-23-2024 09:01-0500 SaO2% (BldA) [Mass fraction] 98 % Caesar Vazquez MD Work Phone: [facility] 10-23-2024 09:01-0500 Systolic blood pressure 157 mm[Hg] Caesar Vazquez MD Work Phone: [facility] 09-10-2024 20:54-0500 Body temperature 98.01 [degF] Leni Santiago [facility] 09-10-2024 20:54-0500 Diastolic blood pressure 59 mm[Hg] Leni Santiago MD [facility] 09-10-2024 20:54-0500 Heart rate 60 /min Leni Santiago MD [facility] 09-10-2024 20:54-0500 Respiratory rate 18 /min Leni Santiago MD [facility] 09-10-2024 20:54-0500 SaO2% (BldA) [Mass fraction] 98 % Leni Santiago MD [facility] 09-10-2024 20:54-0500 Systolic blood pressure 153 mm[Hg] Leni Santiago MD [facility] 08-21-2024 09:22-0500 Body height 162 cm Caesar Vazquez MD Work Phone: [facility] 08-21-2024 09:22-0500 Body mass index (BMI) [Ratio] 28.12 kg/m2 Caesar Vazquez MD Work Phone: [facility] 08-21-2024 09:22-0500 Body temperature 97.2 [degF] Caesar Vazquez MD Work Phone: [facility] 08-21-2024 09:22-0500 Body weight 73.8 kg Caesar Vazquez MD Work Phone: [facility] 08-21-2024 09:22-0500 Diastolic blood pressure 75 mm[Hg] Caesar Vazquez MD Work Phone: [facility] 08-21-2024 09:22-0500 Heart rate 64 /min Caesar Vazquez MD Work Phone: [facility] 08-21-2024 09:22-0500 Respiratory rate 16 /min Caesar Vazquez MD Work Phone: [facility] 08-21-2024 09:22-0500 SaO2% (BldA) [Mass fraction] 98 % Caesar Vazquez MD Work Phone: [facility] 08-21-2024 09:22-0500 Systolic blood pressure 149 mm[Hg] Caesar Vazquez MD Work Phone: [facility] 05-18-2024 12:47-0400 Body height 162 cm Caesar Vazquez MD Work Phone: [facility] Comment on above: verifed by 2 no shoes 05-18-2024 12:47-0400 Body mass index (BMI) [Ratio] 26.18 kg/m2 Caesar Vazquez MD Work Phone: [facility] 05-18-2024 12:47-0400 Body temperature 97.11 [degF] Caesar Vazquez MD Work Phone: [facility] 05-18-2024 12:47-0400 Body weight 68.7 kg Caesar Vazquez MD Work Phone: [facility] 05-18-2024 12:47-0400 Diastolic blood pressure 63 mm[Hg] Caesar Vazquez MD Work Phone: [facility] 05-18-2024 12:47-0400 Heart rate 66 /min Caesar Vazquez MD Work Phone: [facility] 05-18-2024 12:47-0400 Respiratory rate 16 /min Caesar Vazquez MD Work Phone: [facility] 05-18-2024 12:47-0400 SaO2% (BldA) [Mass fraction] 99 % Caesar Vazquez MD Work Phone: [facility] 05-18-2024 12:47-0400 Systolic blood pressure 121 mm[Hg] Caesar Vazquez MD Work Phone: [facility] 03-22-2024 22:58-0400 Diastolic blood pressure 43 mm[Hg] Lawrence [facility] [employer] 03-22-2024 22:58-0400 Heart rate 61 /min Lawrence [facility] [employer] 03-22-2024 22:58-0400 Respiratory rate 14 /min Lawrence [facility] 03-22-2024 22:58-0400 SaO2% (BldA) [Mass fraction] 96 % Lawrence [facility] [employer] 03-22-2024 22:58-0400 Systolic blood pressure 106 mm[Hg] Lawrence Adam [facility] [employer] 03-22-2024 17:55-0400 Body temperature 97.7 [degF] Lawrence [facility] [employer] 03-22-2024 17:54-0400 Body weight 58.97 kg Lawrence [facility] [employer] 12-20-2023 13:09-0500 Body height 162.6 cm Patricia Conteh APRN.CNP Work Phone: [facility] 12-20-2023 13:09-0500 Body temperature 97.2 [degF] Patricia Conteh APRN.OUTSIDE MACHINIST Work Phone: [facility] 12-20-2023 13:09-0500 Body weight 63.1 kg Patricia Conteh APRN.OUTSIDE MACHINIST Work Phone: [facility] 12-20-2023 13:09-0500 Diastolic blood pressure 49 mm[Hg] Patricia Conteh SUPERINTENDENT MAINTENANCE.OUTSIDE MACHINIST Work Phone: [facility] 12-20-2023 13:09-0500 Heart rate 66 /min Patricia Conteh SUPERINTENDENT MAINTENANCE.OUTSIDE MACHINIST Work Phone: [facility] 12-20-2023 13:09-0500 Respiratory rate 16 /min Patricia Conteh APRN.OUTSIDE MACHINIST Work Phone: [facility] 12-20-2023 13:09-0500 SaO2% (BldA) [Mass fraction] 97 % Patricia Conteh APRN.OUTSIDE MACHINIST Work Phone: [facility] 12-20-2023 13:09-0500 Systolic blood pressure 119 mm[Hg] Patricia Conteh SUPERINTENDENT MAINTENANCE.OUTSIDE MACHINIST Work Phone: [facility] 11-29-2023 12:51-0500 Body height 162.6 cm Caesar Vazquez MD Work Phone: [facility] 11-29-2023 12:51-0500 Body temperature 98.01 [degF] Caesar Vazquez MD Work Phone: [facility] 11-29-2023 12:51-0500 Body weight 67.9 kg Caesar Vazquez MD Work Phone: [facility] 11-29-2023 12:51-0500 Diastolic blood pressure 50 mm[Hg] Caesar Vazquez MD Work Phone: [facility] 11-29-2023 12:51-0500 Heart rate 71 /min Caesar Vazquez MD Work Phone: [facility] 11-29-2023 12:51-0500 Respiratory rate 16 /min Caesar Vazquez MD Work Phone: [facility] 11-29-2023 12:51-0500 SaO2% (BldA) [Mass fraction] 98 % Caesar Vazquez MD Work Phone: [facility] 11-29-2023 12:51-0500 Systolic blood pressure 100 mm[Hg] Caesar Vazquez MD Work Phone: [facility] 09-19-2023 14:50-0500 Diastolic blood pressure 62 mm[Hg] Chair Cristel Work Phone: [facility] 09-19-2023 14:50-0500 Systolic blood pressure 114 mm[Hg] Chair Cristel Work Phone: [facility] 08-29-2023 12:37-0500 Body height 162.6 cm Caesar Vazquez MD Work Phone: [facility] 08-29-2023 12:37-0500 Body temperature 97.5 [degF] Caesar Vazquez MD Work Phone: [facility] 08-29-2023 12:37-0500 Body weight 75.75 kg Caesar Vazquez MD Work Phone: [facility] 08-29-2023 12:37-0500 Diastolic blood pressure 58 mm[Hg] Caesar Vazquez MD Work Phone: [facility] 08-29-2023 12:37-0500 Heart rate 60 /min Caesar Vazquez MD Work Phone: [facility] 08-29-2023 12:37-0500 Respiratory rate 18 /min Caesar Vazquez MD Work Phone: [facility] 08-29-2023 12:37-0500 SaO2% (BldA) [Mass fraction] 97 % Caesar Vazquez MD Work Phone: [facility] 08-29-2023 12:37-0500 Systolic blood pressure 124 mm[Hg] Caesar Vazquez MD Work Phone: [facility] 07-18-2023 13:14-0400 Body height 162.6 cm Caesar Vazquez MD Work Phone: [facility] 07-18-2023 13:140400 Body temperature 97.59 [degF] Caesar Vazquez MD Work Phone: [facility] 07-18-2023 13:14-0400 Body weight 80.74 kg Caesar Vazquez MD Work Phone: [facility] 07-18-2023 13:14-0400 Diastolic blood pressure 52 mm[Hg] Caesar Vazquez MD Work Phone: [facility] 07-18-2023 13:14-0400 Heart rate 61 /min Caesar Vazquez MD Work Phone: [facility] 07-18-2023 13:14-0400 Respiratory rate 18 /min Caesar Vazquez MD Work Phone: [facility] 07-18-2023 13:14-0400 SaO2% (BldA) [Mass fraction] 96 % Caesar Vazquez MD Work Phone: [facility] 07-18-2023 13:14-0400 Systolic blood pressure 129 mm[Hg] Caesar Vazquez MD Work Phone: [facility] 06-27-2023 13:02-0400 Body height 162.6 cm Patricia Conteh APRN.OUTSIDE MACHINIST Work Phone: [facility] 06-27-2023 13:02-0400 Body temperature 97 [degF] Patricia Conteh APRN.OUTSIDE MACHINIST Work Phone: [facility] 06-27-2023 13:02-0400 Body weight 81.19 kg Patricia Conteh APRN.OUTSIDE MACHINIST Work Phone: [facility] 06-27-2023 13:02-0400 Diastolic blood pressure 56 mm[Hg] Patricia Wero SUPERINTENDENT MAINTENANCE.OUTSIDE MACHINIST Work Phone: [facility] 06-27-2023 13:02-0400 Heart rate 61 /min Patricia Conteh SUPERINTENDENT MAINTENANCE.OUTSIDE MACHINIST Work Phone: [facility] 06-27-2023 13:02-0400 Respiratory rate 16 /min Patricia Conteh SUPERINTENDENT MAINTENANCE.OUTSIDE MACHINIST Work Phone: [facility] 06-27-2023 13:02-0400 SaO2% (BldA) [Mass fraction] 99 % Patricia Conteh SUPERINTENDENT MAINTENANCE.OUTSIDE MACHINIST Work Phone: [facility] 06-27-2023 13:02-0400 Systolic blood pressure 122 mm[Hg] Patricia Conteh SUPERINTENDENT MAINTENANCE.OUTSIDE MACHINIST Work Phone: [facility] 06-06-2023 13:31-0400 Body height 162.6 cm Caesar Vazquez MD Work Phone: [facility] 06-06-2023 13:31-0400 Body temperature 97.81 [degF] Caesar Vazquez MD Work Phone: [facility] 06-06-2023 13:31-0400 Body weight 80.47 kg Caesar Vazquez MD Work Phone: [facility] 06-06-2023 13:31-0400 Diastolic blood pressure 63 mm[Hg] Caesar aVzquez MD Work Phone: [facility] 06-06-2023 13:31-0400 Heart rate 60 /min Caesar Vazquez MD Work Phone: [facility] 06-06-2023 13:31-0400 Respiratory rate 16 /min Caesar Vazquez MD Work Phone: [facility] 06-06-2023 13:31-0400 SaO2% (BldA) [Mass fraction] 99 % Caesar Vazquez MD Work Phone: [facility] 06-06-2023 13:31-0400 Systolic blood pressure 131 mm[Hg] Caesar Vazquez MD Work Phone: [facility] 05-16-2023 13:02-0400 Body height 162.6 cm Caesar Vazquez MD Work Phone: [facility] 05-16-2023 13:02-0400 Body temperature 97.81 [degF] Caesar Vazquez MD Work Phone: [facility] 05-16-2023 13:02-0400 Body weight 80.65 kg Caesar Vazquez MD Work Phone: [facility] 05-16-2023 13:02-0400 Diastolic blood pressure 55 mm[Hg] Caesar Vazquez MD Work Phone: [facility] 05-16-2023 13:02-0400 Heart rate 62 /min Caesar Vazquez MD Work Phone: [facility] 05-16-2023 13:02-0400 Respiratory rate 18 /min Caesar Vazquez MD Work Phone: [facility] 05-16-2023 13:02-0400 SaO2% (BldA) [Mass fraction] 100 % Caesar Vazquez MD Work Phone: [facility] 05-16-2023 13:02-0400 Systolic blood pressure 116 mm[Hg] Caesar Vazquez MD Work Phone: [facility] 04-25-2023 12:54-0400 Body height 162.6 cm Patricia Conteh APRN.OUTSIDE MACHINIST Work Phone: [facility] 04-25-2023 12:54-0400 Body temperature 97.39 [degF] Patricia Conteh APRN.OUTSIDE MACHINIST Work Phone: [facility] 04-25-2023 12:54-0400 Body weight 80.74 kg Patricia Conteh APRN.OUTSIDE MACHINIST Work Phone: [facility] 04-25-2023 12:54-0400 Diastolic blood pressure 61 mm[Hg] Patricia Conteh APRN.OUTSIDE MACHINIST Work Phone: [facility] 04-25-2023 12:54-0400 Heart rate 66 /min Patricia Conteh APRN.OUTSIDE MACHINIST Work Phone: [facility] 04-25-2023 12:54-0400 Respiratory rate 16 /min Patricia Conteh APRN.OUTSIDE MACHINIST Work Phone: [facility] 04-25-2023 12:54-0400 SaO2% (BldA) [Mass fraction] 97 % Patricia Conteh APRN.OUTSIDE MACHINIST Work Phone: [facility] 04-25-2023 12:54-0400 Systolic blood pressure 140 mm[Hg] Patricia Conteh APRN.OUTSIDE MACHINIST Work Phone: [facility] 04-04-2023 10:25-0400 Body height 162.6 cm Patricia Conteh APRN.OUTSIDE MACHINIST Work Phone: [facility] 04-04-2023 10:25-0400 Body temperature 97.7 [degF] Patricia Conteh APRN.OUTSIDE MACHINIST Work Phone: [facility] 04-04-2023 10:25-0400 Body weight 80.29 kg Patricia Conteh APRN.OUTSIDE MACHINIST Work Phone: [facility] 04-04-2023 10:25-0400 Diastolic blood pressure 62 mm[Hg] Patricia Conteh APRN.OUTSIDE MACHINIST Work Phone: [facility] 04-04-2023 10:25-0400 Heart rate 67 /min Patricia Conteh APRN.OUTSIDE MACHINIST Work Phone: [facility] 04-04-2023 10:25-0400 Respiratory rate 16 /min Patricia Conteh APRN.OUTSIDE MACHINIST Work Phone: [facility] 04-04-2023 10:25-0400 SaO2% (BldA) [Mass fraction] 97 % Patricia Conteh APRN.OUTSIDE MACHINIST Work Phone: [facility] 04-04-2023 10:25-0400 Systolic blood pressure 139 mm[Hg] Patricia Conteh APRN.OUTSIDE MACHINIST Work Phone: [facility] 03-12-2023 10:00-0400 Body weight 82.56 kg Shawn Nelson Other [facility] [employer] Other 03-12-2023 10:00-0400 Diastolic blood pressure 74 mm[Hg] Shawn Nelson Other [employer] [facility] [employer] Other 03-12-2023 10:00-0400 Systolic blood pressure 128 mm[Hg] Shawn Nelson Other [employer] [facility] [employer] Other 01-31-2023 08:17-0400 Body height 162.6 cm Caesar Vazquez MD Work Phone: [facility] 01-31-2023 08:17-0400 Body temperature 97.5 [degF] Caesar Vazquez MD Work Phone: [facility] 01-31-2023 08:17-0400 Body weight 82.19 kg Caesar Vazquez MD Work Phone: [facility] 01-31-2023 08:17-0400 Diastolic blood pressure 59 mm[Hg] Caesar Vazquez MD Work Phone: [facility] 01-31-2023 08:17-0400 Heart rate 59 /min Caesar Vazquez MD Work Phone: [facility] 01-31-2023 08:17-0400 Respiratory rate 16 /min Caesar Vazquez MD Work Phone: [facility] 01-31-2023 08:17-0400 SaO2% (BldA) [Mass fraction] 97 % Caesar Vazquez MD Work Phone: [facility] 01-31-2023 08:17-0400 Systolic blood pressure 142 mm[Hg] Caesar Vazquez MD Work Phone: [facility] 01-02-2023 14:58-0400 Body height 167.6 cm Caesar Vazquez MD Work Phone: [facility] 01-02-2023 14:58-0400 Body temperature 97.3 [degF] Caesar Vazquez MD Work Phone: [facility] 01-02-2023 14:58-0400 Body weight 80.2 kg Caesar Vazquez MD Work Phone: [facility] 01-02-2023 14:58-0400 Diastolic blood pressure 58 mm[Hg] Caesar Vazquez MD Work Phone: [facility] 01-02-2023 14:58-0400 Heart rate 63 /min Caesar Vazquez MD Work Phone: [facility] 01-02-2023 14:58-0400 Respiratory rate 16 /min Caesar Vazquez MD Work Phone: [facility] 01-02-2023 14:58-0400 SaO2% (BldA) [Mass fraction] 97 % Caesar Vazquez MD Work Phone: [facility] 01-02-2023 14:58-0400 Systolic blood pressure 133 mm[Hg] Caesar Vazquez MD Work Phone: [facility] 12-05-2022 09:20-0500 Blood Pressure Location Jian RODRIGUEZ [facility] 12-05-2022 09:20-0500 Diastolic blood pressure 70 mm[Hg] Jian RODRIGUEZ [facility] 12-05-2022 09:20-0500 Heart rate 59 /min Jian RODRIGUEZ [facility] 12-05-2022 09:20-0500 Systolic blood pressure 146 mm[Hg] Jian RODRIGUEZ [facility] 11-26-2022 08:40-0500 Body height 167.6 cm Caesar Vazquez MD Work Phone: [facility] 11-26-2022 08:40-0500 Body temperature 97.7 [degF] Caesar Vazquez MD Work Phone: [facility] 11-26-2022 08:40-0500 Body weight 77.47 kg Caesar Vazquez MD Work Phone: [facility] 11-26-2022 08:40-0500 Diastolic blood pressure 63 mm[Hg] Caesar Vazquez MD Work Phone: [facility] 11-26-2022 08:40-0500 Heart rate 60 /min Caesar Vazquez MD Work Phone: [facility] 11-26-2022 08:40-0500 Respiratory rate 16 /min Caesar Vazquez MD Work Phone: [facility] 11-26-2022 08:40-0500 SaO2% (BldA) [Mass fraction] 97 % Caesar Vazquez MD Work Phone: [facility] 11-26-2022 08:40-0500 Systolic blood pressure 131 mm[Hg] Caesar Vazquez MD Work Phone: [facility] 09-12-2022 14:05-0500 Body height 167.6 cm Nicholas Saenz MD Work Phone: [facility] 09-12-2022 14:05-0500 Body weight 78.93 kg Nicholas Saenz MD Work Phone: [facility] 09-12-2022 14:05-0500 Diastolic blood pressure 79 mm[Hg] Nicholas Saenz MD Work Phone: [facility] 09-12-2022 14:05-0500 Heart rate 79 /min Nicholas Saenz MD Work Phone: [facility] 09-12-2022 14:05-0500 Systolic blood pressure 168 mm[Hg] Nicholas Saenz MD Work Phone: [facility] 09-12-2022 10:56-0500 Diastolic blood pressure 72 mm[Hg] Pacc 4 Work Phone: [facility] 09-12-2022 10:56-0500 Systolic blood pressure 170 mm[Hg] Pacc 4 Work Phone: [facility] 09-12-2022 10:55-0500 Body height 167.6 cm Pacc 4 Work Phone: [facility] 09-12-2022 10:55-0500 Body temperature 98.29 [degF] Pacc 4 Work Phone: [facility] 09-12-2022 10:55-0500 Body weight 78.93 kg Pacc 4 Work Phone: [facility] 09-12-2022 10:55-0500 Heart rate 66 /min Pacc 4 Work Phone: [facility] 09-12-2022 10:55-0500 SaO2% (BldA) [Mass fraction] 96 % Pacc 4 Work Phone: [facility] 03-08-2022 11:15-0400 Body weight 81.65 kg Augusto Sauceda Other [employer] Other 03-05-2022 12:37-0400 Body height 163.6 cm Soren Perea MD Work Phone: [facility] 03-05-2022 12:37-0400 Body temperature 97.81 [degF] Soren Perea MD Work Phone: [facility] 03-05-2022 12:37-0400 Body weight 83.01 kg Soren Perea MD Work Phone: [facility] 03-05-2022 12:37-0400 Diastolic blood pressure 61 mm[Hg] Soren Perea MD Work Phone: [facility] 03-05-2022 12:37-0400 Heart rate 56 /min Soren Perea MD Work Phone: [facility] 03-05-2022 12:37-0400 Respiratory rate 16 /min Soren Perea MD Work Phone: [facility] 03-05-2022 12:37-0400 SaO2% (BldA) [Mass fraction] 97 % Soren Perea MD Work Phone: [facility] 03-05-2022 12:37-0400 Systolic blood pressure 141 mm[Hg] Soren Perea MD Work Phone: [facility] 02-19-2022 12:37-0400 Body height 163.6 cm Corazon Alissa PA-C Work Phone: [facility] 02-19-2022 12:37-0400 Body temperature 97.59 [degF] Corazon Alissa PA-C Work Phone: [facility] 02-19-2022 12:37-0400 Body weight 82.19 kg Corazon Alissa PA-C Work Phone: [facility] 02-19-2022 12:37-0400 Diastolic blood pressure 59 mm[Hg] Corazon Alissa PA-C Work Phone: [facility] 02-19-2022 12:37-0400 Heart rate 67 /min Corazon Alissa PA-C Work Phone: [facility] 02-19-2022 12:37-0400 Respiratory rate 18 /min Corazon Alissa PA-C Work Phone: [facility] 02-19-2022 12:37-0400 SaO2% (BldA) [Mass fraction] 100 % Corazon Alissa PA-C Work Phone: [facility] 02-19-2022 12:37-0400 Systolic blood pressure 127 mm[Hg] Corazon Alissa PA-C Work Phone: [facility] 02-12-2022 12:56-0400 Body height 163.6 cm Soren Perea MD Work Phone: [facility] 02-12-2022 12:56-0400 Body temperature 97.39 [degF] Soren Perea MD Work Phone: [facility] 02-12-2022 12:56-0400 Body weight 84.46 kg Soren Perea MD Work Phone: [facility] 02-12-2022 12:56-0400 Diastolic blood pressure 62 mm[Hg] Soren Perea MD Work Phone: [facility] 02-12-2022 12:56-0400 Heart rate 52 /min Soren Perea MD Work Phone: [facility] 02-12-2022 12:56-0400 Respiratory rate 18 /min Soren Perea MD Work Phone: [facility] 02-12-2022 12:56-0400 SaO2% (BldA) [Mass fraction] 99 % Soren Perea MD Work Phone: [facility] 02-12-2022 12:56-0400 Systolic blood pressure 149 mm[Hg] Soren Perea MD Work Phone: [facility] 02-05-2022 12:40-0400 Body height 163.6 cm Soren Perea MD Work Phone: [facility] 02-05-2022 12:40-0400 Body temperature 97.59 [degF] Soren Perea MD Work Phone: [facility] 02-05-2022 12:40-0400 Body weight 84.91 kg Soren Perea MD Work Phone: [facility] 02-05-2022 12:40-0400 Diastolic blood pressure 62 mm[Hg] Soren Perea MD Work Phone: [facility] 02-05-2022 12:40-0400 Heart rate 57 /min Soren Perea MD Work Phone: [facility] 02-05-2022 12:40-0400 Respiratory rate 18 /min Soren Perea MD Work Phone: [facility] 02-05-2022 12:40-0400 SaO2% (BldA) [Mass fraction] 100 % Soren Perea MD Work Phone: [facility] 02-05-2022 12:40-0400 Systolic blood pressure 154 mm[Hg] Soren Perea MD Work Phone: [facility] 01-15-2022 12:35-0400 Body height 163.6 cm Corazon Alissa PA-C Work Phone: [facility] 01-15-2022 12:35-0400 Body temperature 98.1 [degF] Corazon Alissa PA-C Work Phone: [facility] 01-15-2022 12:35-0400 Body weight 84.28 kg Corazon Alissa PA-C Work Phone: [facility] 01-15-2022 12:35-0400 Diastolic blood pressure 63 mm[Hg] Corazon Alissa PA-C Work Phone: [facility] 01-15-2022 12:35-0400 Heart rate 63 /min Corazon Alissa PA-C Work Phone: [facility] 01-15-2022 12:35-0400 Respiratory rate 16 /min Corazon Alissa PA-C Work Phone: [facility] 01-15-2022 12:35-0400 SaO2% (BldA) [Mass fraction] 98 % Corazon Alissa PA-C Work Phone: [facility] 01-15-2022 12:35-0400 Systolic blood pressure 145 mm[Hg] Corazon Alissa PA-C Work Phone: [facility] 01-08-2022 09:09-0400 Body height 163.6 cm Soren Perea MD Work Phone: [facility] 01-08-2022 09:09-0400 Body temperature 97.11 [degF] Soren Perea MD Work Phone: [facility] 01-08-2022 09:09-0400 Body weight 83.55 kg Soren Perea MD Work Phone: [facility] 01-08-2022 09:09-0400 Diastolic blood pressure 80 mm[Hg] Soren Perea MD Work Phone: [facility] 01-08-2022 09:09-0400 Heart rate 62 /min Soren Perea MD Work Phone: [facility] 01-08-2022 09:09-0400 Respiratory rate 18 /min Soren Perea MD Work Phone: [facility] 01-08-2022 09:09-0400 SaO2% (BldA) [Mass fraction] 98 % Soren Perea MD Work Phone: [facility] 01-08-2022 09:09-0400 Systolic blood pressure 144 mm[Hg] Soren Perea MD Work Phone: [facility] Encounters Encounter Date Encounter Type Care Provider Facility Start: 06-30-2025 End: 06-30-2025 ambulatory [facility] Start: 05-17-2025 End: 05-17-2025 Office outpatient visit 15 minutes Pennie Avalos SUPERINTENDENT MAINTENANCE-OUTSIDE MACHINIST Work Phone: [facility] Comment on above: Chest wall ulcer, 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); Infection of pacemaker pocket, initial encounter; Open wound of left chest wall, initial encounter Start: 05-17-2025 End: 05-17-2025 ambulatory PENNIE AVALOS [facility] Start: 05-14-2025 End: 05-14-2025 ambulatory ADELINA [facility] Start: 05-08-2025 End: 05-08-2025 Postop follow up visit related to original px Jayla M Mary SUPERINTENDENT MAINTENANCE-OUTSIDE MACHINIST Work Phone: [facility] Comment on above: Open wound of left c hest wall, initial encounter (Primary Dx); Pacemaker complications, initial encounter Start: 05-08-2025 ambulatory JAYLA Feliz M[facility] Start: 05-05-2025 End: 05-05-2025 Chart abstracting Scanning Provider External [facility] Start: 05-05-2025 End: 05-05-2025 Telephone encounter Jazmine Yu RN [facility] Comment on above: Extraction site Reminder Start: 05-04-2025 End: 05-04-2025 Documentation procedure Pennie Avalos SUPERINTENDENT MAINTENANCE-OUTSIDE MACHINIST Work Phone: [facility] Start: 05-03-2025 End: 05-03-2025 Office outpatient new 30 minutes Pennie Avalos SUPERINTENDENT MAINTENANCE-OUTSIDE MACHINIST Work Phone: [facility] Comment on above: Open wound of left c hest wall, initial encounter (Primary Dx); 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; Infection of pacemaker pocket, initial encounter Start: 05-03-2025 End: 05-03-2025 ambulatory PENNIE AVALOS [facility] Start: 04-22-2025 End: 04-22-2025 Telephone encounter Caesar Vazquez MD Work Phone: Hematology/Oncology Comment on above: Patient Update Start: 04-19-2025 End: 04-23-2025 Evaluation and management of inpatient YOAN Feliz Eli [facility] Start: 04-19-2025 End: 04-19-2025 Emergency department patient visit ADEN MALIN [facility] Start: 04-07-2025 ambulatory [facility] Start: 03-16-2025 End: 03-16-2025 ambulatory [facility] Start: 02-23-2025 End: 02-23-2025 ambulatory [facility] Start: 02-17-2025 End: 02-17-20[facility] Start: 02-08-2025 ambulatory [facility] Start: 02-02-2025 End: 02-02-2025 ambulatory [facility] Start: 01-21-2025 End: 01-21-2025 ambulatory [facility] Start: 01-20-2025 End: 01-20-[facility] Start: 01-20-2025 End: 01-20-2025 Encounter for other preprocedural examination [facility] Start: 01-20-2025 End: 01-20-2025 Subsequent hospital visit by physician Marilu Roach APRN - OUTSIDE MACHINIST Work Phone: [facility] Start: 01-20-2025 End: 01-20-2025 ambulatory [facility] Start: 01-19-2025 End: 01-19-2025 ambulatory [facility] Start: 01-08-2025 End: 01-08-2025 ambulatory [facility] Start: 01-04-2025 End: 01-04-2025 [facility] Start: 01-04-2025 End: 01-04-2025 Subsequent hospital visit by physician Marilu Stubbs CNP Work Phone: [facility] Comment on above: Abscess Start: 10-23-2024 End: 10-23-2024 Office outpatient visit 25 minutes Caesar Vazquez MD Work Phone: Hematology/Oncology Comment on above: 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); Malignant neoplasm of urinary bladder, unspecified site (HCC); CKD (chronic kidney disease), stage V (HCC); Disorder of thyroid; Malignant neoplasm of ureteric orifice (HCC) Start: 10-23-2024 End: 10-23-2024 ambulatory CAESAR VAZQUEZ Facility:[facility] Start: 10-21-2024 End: 10-21-2024 ambulatory MARILU ROACH [facility] Start: 10-21-2024 End: 10-21-2024 Subsequent hospital visit by physician Marilu Roach SUPERINTENDENT MAINTENANCE - OUTSIDE MACHINIST Work Phone: [facility] Comment on above: Congenital hypothyro idism; Dyslipidemia Start: 10-16-2024 End: 10-16-2024 ambulatory MARILUPATSY ROACH Facility:[facility] Start: 10-16-2024 End: 10-16-2024 Subsequent hospital visit by physician Arrival Time Radiology Work Phone: [facility] Comment on above: 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) [C67.8] Start: 09-29-2024 End: 09-29-2024 ambulatory [facility] Start: 09-16-2024 End: 09-16-2024 ambulatory JESSICA [facility] Start: 09-10-2024 End: 09-10-2024 Emergency department patient visit Leni Santiago MD Work Phone: [facility] Comment on above: Chest discomfort (Pr imary Dx) Start: 08-25-2024 End: 08-25-2024 ambulatory [facility] Start: 08-21-2024 End: 08-21-2024 Office outpatient visit 25 minutes Caesar Vazquez MD Work Phone: Hematology/Oncology Comment on above: 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); CKD (chronic kidney disease), stage V (HCC); Malignant neoplasm of urinary bladder, unspecified site (HCC) Start: 08-21-2024 End: 08-21-2024 ambulatory CAESAR VAZQUEZ Facility:[facility] Start: 07-10-2024 End: 07-10-2024 ambulatory JACOB [facility] Start: 06-29-2024 End: 06-29-2024 ambulatory CAESAR GEORGE Facility:[facility] Start: 06-29-2024 End: 06-29-2024 Subsequent hospital visit by physician Arrival Time Radiology Work Phone: [facility] Comment on above: 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) [C67.8] Start: 05-18-2024 End: 05-18-2024 Office outpatient visit 40 minutes Caesar Vazquez MD Work Phone: Hematology/Oncology Comment on above: 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); CKD (chronic kidney disease), stage V (HCC); Malignant neoplasm of urinary bladder, unspecified site (HCC); Disorder of thyroid; Abnormal blood chemistry Start: 05-18-2024 End: 05-18-2024 ambulatory YOAN Feliz Eli Facility:[facility] Start: 03-30-2024 Telephone encounter Lauren Mckeon RN Work Phone: Hematology/Oncology Comment on above: Care Coordination (D iarrhea >1 month) Start: 03-22-2024 End: 03-22-2024 Emergency department patient visit Lawrence Adam MD [facility] Comment on above: Elevated troponin (P rimary Dx) Start: 03-20-2024 Telephone encounter Caesar garcía MD [facility] Comment on above: Appointment Cancelle d (Diarrhea/) Start: 03-17-2024 E-mail encounter fro m caregiver Dotty Emmanuel APRN.OUTSIDE MACHINIST Work Phone: [facility] Start: 03-17-2024 Patient encounter procedure Dotty Emmanuel APRN.OUTSIDE MACHINIST Work Phone: [facility] Comment on above: Actionable Finding Start: 01-31-2024 Telephone encounter Caesar garcía MD Work Phone: [facility] Comment on above: No Show Start: 01-24-2024 End: 01-24-2024 Subsequent hospital visit by physician Arrival Time Radiology Work Phone: [facility] Comment on above: Malignant neoplasm o f urinary bladder, unspecified site (HCC) [C67.9] Start: 12-20-2023 End: 12-20-2023 ambulatory Patricia Conteh APRN.OUTSIDE MACHINIST Work Phone: Hematology/Oncology Comment on above: 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); CKD (chronic kidney disease), stage V (HCC); Abnormal weight loss; Malignant neoplasm of urinary bladder, unspecified site (HCC) Start: 12-20-2023 End: 12-20-2023 Patient encounter procedure Patricia Conteh APRN.OUTSIDE MACHINIST Work Phone: [facility] Start: 11-29-2023 End: 11-29-2023 ambulatory Chair 14 Cristel Work Phone: Hematology/Oncology [...] Malaise and fatigue Start: 11-21-2023 Telephone encounter Mahesh galvin RN Work Phone: Hematology/Oncology Comment on above: Care Coordination (F ollow Up Appointment) Start: 11-14-2023 Telephone encounter Caesar garcía MD [facility] Start: 09-19-2023 End: 09-19-2023 ambulatory Chair 14 Cristel Work Phone: Hematology/Oncology Comment on above: 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); Malignant neoplasm of right kidney, except renal pelvis (HCC); Malignant neoplasm of ureter, unspecified laterality (HCC) Start: 08-29-2023 End: 08-29-2023 Office outpatient visit 25 minutes Caesar Vazquez MD Work Phone: Hematology/Oncology Comment on above: 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); Malignant neoplasm of ureter, unspecified laterality (HCC); Malaise and fatigue Start: 08-23-2023 End: 08-23-2023 Subsequent hospital visit by physician Arrival Time Radiology Work Phone: [facility] Comment on above: 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) [C67.8] Start: 08-08-2023 Telephone encounter Mahesh galvin RN Work Phone: Hematology/Oncology Comment on above: Care Coordination (S ore Throat) Start: 07-18-2023 End: 07-19-2023 ambulatory Chair 13 [...] (Primary Dx) Start: 06-27-2023 End: 06-27-2023 ambulatory Chair 13 Cristel Work Phone: Hematology/Oncology Comment on above: 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); Malignant neoplasm of right kidney, except renal pelvis (HCC); Malignant neoplasm of ureter, 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); Malaise and fatigue Start: 06-27-2023 End: 06-27-2023 Patient encounter procedure Patricia Conteh APRN.CNP Work Phone: [facility] Start: 06-18-2023 End: 06-18-2023 ambulatory Galen Bhatt MD Work Phone: Urology Comment on above: Urothelial cancer (H CC) (Primary Dx) Start: 06-18-2023 End: 06-18-2023 Telemedicine consultation with patient Galen Bhatt MD Work Phone: [facility] Start: 06-06-2023 End: 06-06-2023 ambulatory Chair [...] of thyroid Start: 05-31-2023 End: 05-31-2023 Refill Galen Bhatt MD Work Phone: Urology Comment on above: Refill Request 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) [C67.8] Start: 05-16-2023 End: 05-16-2023 ambulatory Chair 16 [...] bladder (HCC) (Primary Dx) Start: 05-07-2023 End: 05-07-2023 ambulatory Galen Bhatt MD Work Phone: Urology Comment on above: Malignant neoplasm o f urothelium (HCC) (Primary Dx) Start: 05-07-2023 End: 05-07-2023 Telemedicine consultation with patient Galen Bhatt MD Work Phone: [facility] Start: 04-25-2023 End: 04-25-2023 Orders Only Yoan [...] laterality (HCC) Start: 04-04-2023 End: 04-04-2023 ambulatory Patricia Conteh APRN.CNP Work Phone: Hematology/Oncology Comment on above: 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) 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); Malignant neoplasm of right kidney, except renal pelvis (HCC); Malignant neoplasm of ureter, unspecified laterality (HCC) Start: 04-04-2023 End: 04-04-2023 Patient encounter procedure Patricia Conteh APRN.CNP Work Phone: [facility] Start: 03-12-2023 End: 03-12-2023 ambulatory Shawn Nelson Other [employer] Other Start: 03-12-2023 Patient encounter procedure Shawn Nelson [facility] G[facility] Start: 03-10-2023 End: 03-10-[address] DI OCHOA . Facility: Start: 01-31-2023 Telephone encounter Caesar garcía MD Work Phone: [facility] Comment on above: Return Call Request; Call pt Start: 01-31-2023 End: 01-31-2023 ambulatory Chair 19 [...] (HCC) (Primary Dx) Start: 01-23-2023 End: 01-23-2023 Subsequent hospital visit by physician Arrival Time Radiology Work Phone: [facility]iology [facility] Comment on above: 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) [C67.8] Start: 01-11-2023 End: 01-12-[address] YOAN SNEED . Facility: Start: 01-08-2023 Telephone encounter Mahesh galvin RN Work Phone: Hematology/Oncology Comment on above: Care Coordination (C 1D1 Post Treatment Call) Start: 01-02-2023 End: 01-02-2023 ambulatory Chair Gala Fam Work Phone: Hematology/Oncology [...] of ureter, unspecified laterality (HCC) Start: 12-31-2022 ambulatory Mahesh lee RN Work Phone: Hematology/Oncology Comment on above: Non-Chemotherapy Vinod atment (Pembrolizumab) Start: 12-19-2022 Telephone encounter Jimbo alvarado MD Work Phone: [facility] Comment on above: Patient Update Start: 12-18-2022 End: 12-19-2022 ambulatory Jian RODRIGUEZ Facility:[facility] Start: 12-17-2022 Telephone encounter Lauren Mckeon RN Work Phone: Hematology/Oncology Comment on above: Care Coordination (R eschedule appointment) Start: 12-08-2022 End: 12-08-[address] YOAN SNEED . Facility: Start: 12-05-2022 End: 12-06-2022 ambulatory Jian RODRIGUEZ Facility:[facility] Start: 12-05-2022 End: 12-05-2022 Patient encounter procedure Jian Lee JENNIFER [facility] Start: 11-26-2022 End: 11-26-2022 ambulatory Caesar Vazquez MD Work Phone: Hematology/Oncology Comment on above: Malignant neoplasm o f ureter, unspecified laterality (HCC) (Primary Dx) Start: 11-26-2022 End: 11-26-2022 Patient encounter procedure Caesar Vazquez MD Work Phone: [facility] Start: 11-20-2022 End: 11-20-2022 ambulatory Galen Bhatt MD Work Phone: Urology Comment on above: 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, unspecified laterality (HCC) (Primary Dx) Start: 11-20-2022 End: 11-20-2022 Telemedicine consultation with patient Galen Bhatt MD Work Phone: [facility] Start: 11-09-2022 End: 11-09-[address] YOAN SNEED . Facility:[facility] Start: 10-10-2022 End: 10-10-2022 ambulatory Shawn Nelson Other [employer] Other Start: 10-10-2022 Telephone encounter Shawn Nelson [facility] Start: 09-26-2022 End: 09-27-[address] YOAN SNEED . Facility:[facility] Start: 09-12-2022 End: 09-12-2022 Patient encounter procedure Nicholas Saenz MD Work Phone: Urology Comment on above: Urothelial carcinoma (HCC) (Primary Dx) Start: 09-12-2022 End: 09-12-2022 ambulatory [facility] Main 4 Work Phone: Pre Anesthesia [...] to establishment Pac Main 4 Work Phone: [facility] Start: 09-12-2022 End: 09-12-2022 Preprocedural examination done [facility] Main 4 Work Phone: Pre Anesthesia Start: 07-30-2022 End: 07-30-2022 ambulatory Shawn Nelson Other [employer] Other Start: 07-30-2022 Telephone encounter Shawn Barros Gastroenterology Start: 05-04-2022 ambulatory Claire Harrison RN [facility] & Start: 03-26-2022 End: 03-26-2022 ambulatory Jimmy Foote'Chapito PA-C Work Phone: Urology Comment on above: Urothelial carcinoma (HCC) (Primary Dx) Start: 03-26-2022 End: 03-26-2022 Telemedicine consultation with patient Jimmy O'Chapito PA-C Work Phone: [facility] Start: 03-14-2022 ambulatory Claire Harrison RN [facility] & Start: 03-13-2022 End: 03-13-2022 ambulatory Galen Bhatt MD Work Phone: Urology Comment on above: 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, unspecified laterality (HCC) (Primary Dx); Acute cystitis without hematuria Start: 03-13-2022 End: 03-13-2022 Telemedicine consultation with patient Galen Bhatt MD Work Phone: [facility] Start: 03-08-2022 End: 03-08-2022 ambulatory Augusto Sauceda Other [employer] Other Start: 03-08-2022 Office outpatient visit 25 minutes Augusto YU G[facility]enter[facility] Start: 03-05-2022 [...] [facility] Start: 01-22-2022 End: 01-22-2022 ambulatory Chair Alek Fam Work Phone: Hematology/Oncology Comment on above: Malignant neoplasm o f ureter, unspecified laterality (HCC) (Primary Dx) Start: 01-15-2022 End: 01-15-2022 ambulatory Corazon MCLAUGHLIN-C Work Phone: Hematology/Oncology Comment on above: Malignant neoplasm o f ureter, unspecified laterality (HCC) (Primary Dx) Start: 01-15-2022 End: 01-15-2022 Patient encounter procedure Corazon Maxwell PA-C Work Phone: [facility] Start: 01-08-2022 End: 01-08-2022 ambulatory Soren Perea MD Work Phone: Hematology/Oncology Comment on above: Malignant neoplasm o f ureter, unspecified laterality (HCC) (Primary Dx) Start: 01-08-2022 End: 01-08-2022 Patient encounter procedure Soren Perea MD Work Phone: [facility] Start: 07-08-2020 End: 07-08-2020 Subsequent hospital visit by physician Ct Counts Include [facility] Aixa Work Phone: Radiology Comment on above: 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, unspecified laterality (HCC) [C64.9] Start: 04-29-2018 End: 04-30-2018 Patient encounter DEFAULT PHYSICIAN Facility:[facility] Start: 04-21-2018 End: 04-22-2018 Patient encounter DEFAULT PHYSICIAN Facility:[facility] Procedures Date Procedure Procedure Detail Performing Clinician Start: 05-17-2025 NURSING COMMUNICATION K enoc Avalos SUPERINTENDENT MAINTENANCE-OUTSIDE MACHINIST Work Phone: Start: 05-14-2025 Follow-up visit Follow-up ADELINA MENDOZA Start: 05-08-2025 Follow-up visit Follow-up JAYLA HERNANDEZ Start: 04-21-2025 Antibody screen YOAN SNEED Comment on above: Performed By: #### W CSUP #### [facility] ([facility]) [address] [place] [address] VIR Start: 01-20-2025 Basic metabolic pane l calcium total Jimbo Bautista MD Work Phone: Start: 10-21-2024 Lipid panel Marilu W Mi ght SUPERINTENDENT MAINTENANCE - OUTSIDE MACHINIST Work Phone: Start: 10-21-2024 End: 10-21-2024 Basic metabolic panel calcium total Marilu W Might SUPERINTENDENT MAINTENANCE - OUTSIDE MACHINIST Work Phone: Start: 10-16-2024 Ct abdomen & pelvis w/contrast material Caesar Vazquez MD Work Phone: Start: 10-16-2024 Ct thorax w/contrast material Caesar Vazquez MD Work Phone: Start: 10-16-2024 Blood count complete auto&auto difrntl wbc Caesar Vazquez MD Work Phone: Start: 09-10-2024 Radiologic exam ches t 2 views Leni Santiago MD Work Phone: Start: 06-29-2024 Ct abdomen & pelvis w/contrast material Caesar Vazquez MD Work Phone: Start: 06-29-2024 Ct thorax w/contrast material Caesar Vazquez MD Work Phone: Start: 03-22-2024 Assay of troponin quantitative Lawrence Adam MD Start: 03-22-2024 Ct thorax w/contrast material Lawrence Adam MD Start: 03-22-2024 Radiologic exam ches t single view Lawrence Adam MD Start: 03-22-2024 Basic metabolic pane l calcium total Lawrence Adam MD Start: 03-22-2024 Ecg routine ecg w/le ast 12 lds w/i&r Lawrence Adam MD Start: 01-24-2024 Ct abdomen & pelvis w/contrast material Patricia Conteh SUPERINTENDENT MAINTENANCE.OUTSIDE MACHINIST Work Phone: Start: 01-24-2024 Ct thorax w/contrast material Patricia Conteh SUPERINTENDENT MAINTENANCE.OUTSIDE MACHINIST Work Phone: Start: 01-24-2024 Blood count complete auto&auto difrntl wbc Patricia Conteh SUPERINTENDENT MAINTENANCE.OUTSIDE MACHINIST Work Phone: Start: 08-23-2023 Ct abdomen & pelvis w/contrast material Caesar Vazquez MD Work Phone: Start: 08-23-2023 Ct thorax w/contrast material Caesar Vazquez MD Work Phone: Start: 05-31-2023 Ct abdomen & pelvis w/contrast material Caesar Vazquez MD Work Phone: Start: 05-31-2023 Ct thorax w/contrast material Caesar Vazquez MD Work Phone: Start: 01-23-2023 Ct thorax w/o contra st material Patricia Conteh APRN.CNP Work Phone: Start: 09-26-[address] EDEN OCHOA . Comment on above: Performed By: #### I LASHAE, PSASC, VITAD #### [facility] [address] [place] [address] Dr. Tan Oliveros Start: 09-12-2022 Urnls dip stick/tabl et reagent auto microscopy Bulk Order Provider Start: 03-16-2022 Antibody screen Galen Bhatt MD Work Phone: Start: 03-16-2022 Culture bacterial quanttative colony count urine Galen Bhatt MD Work Phone: Start: 07-08-2020 Ct abdomen & pelvis w/o contrst 1/> body re Galen Bhatt MD Work Phone: Start: 07-23-2019 Cystoscopic [...] bladder neoplasm Jian RODRIGUEZ Start: 07-03-2018 Nephroureterectomy Patr damirbernard RODRIGUEZ Comment on above: left side Start: 05-15-2018 Biopsy of bladder Patri nomi RODRIGUEZ Comment on above: 05/15/2018 * Cysto, [...] 06/04/2017, 11/19/2017, 03/11/2018, 09/23/2018, 12/31/2017 Decompression of med rere nerve Jian RODRIGUEZ Dilation of urethra Jian RODRIGUEZ Comment on above: 12/09/2012 * cysto/UD with pelaez sounds Hernia repair Jian RODRIGUEZ Lumbar spinal fusion Jian RODRIGUEZ Transurethral prostatectomy Jian RODRIGUEZ Comment on above: 08/10/2010 * turp 12/27/2011 * cystoscopy, trev rg, ureteroscopy, bladder bx, TURP and left stent placement Plan of Treatment Date Care Activity Detail Author Start: 02-27-2032 DTaP,Tdap and Td Vac cines (3 - Td or Tdap) DTaP,Tdap and Td Vaccines (3 - Td or Tdap) [facility] Start: 02-27-2032 DTaP/Tdap/Td vaccine (2 - Tdap) DTaP/Tdap/Td vaccine (2 - Tdap) [facility] Start: 02-27-2032 Urine microalbumin profile [facility] Start: 04-22-2028 Diabetes Screening Diabetes Screenin [facility] Start: 10-21-2027 Diabetes Screening Diabetes Screenin [facility] Start: 10-16-2027 Diabetes Screening Diabetes Screenin [facility] Start: 08-21-2027 Diabetes Screening Diabetes Screenin [facility] Start: 06-11-2027 Diabetes Screening Diabetes Screenin [facility] Start: 05-18-2027 Diabetes Screening Diabetes Screenin [facility] Start: 03-23-2027 Diabetes Screening Diabetes Screenin [facility] Start: 02-06-2027 Diabetes Screening Diabetes Screenin [facility] Start: 01-23-2027 Diabetes Screening Diabetes Screenin g [facility] Start: 12-19-2026 Diabetes Screening Diabetes Screenin g [facility] Start: 11-29-2026 Diabetes Screening Diabetes Screenin g [facility] Start: 11-02-2026 Diabetes Screening Diabetes Screenin [facility] Start: 09-19-2026 Diabetes Screening Diabetes Screenin g [facility] Start: 08-29-2026 Diabetes Screening Diabetes Screenin g [facility] Start: 08-08-2026 Diabetes Screening Diabetes Screenin g [facility] Start: 07-18-2026 Diabetes Screening Diabetes Screenin g [facility] Start: 06-27-2026 Diabetes Screening Diabetes Screenin g [facility] Start: 06-06-2026 DIABETES SCREEN DIABETES SCREEN [facility] Start: 05-16-2026 DIABETES SCREEN [facility] SCREEN [facility] Start: 05-08-2026 Tobacco Screening Tobacco Screening [facility] Start: 05-03-2026 Tobacco Screening Tobacco Screening [facility] Start: 04-25-2026 DIABETES SCREEN DIABETES SCREEN [facility] Start: 04-04-2026 DIABETES SCREEN DIABETES SCREEN [facility] Start: 01-23-2026 DIABETES SCREEN DI[facility] SCREEN [facility] Start: 01-04-2026 Depression Screen Depression Screen [facility] Start: 12-31-2025 DIABETES SCREEN DIABETES SCREEN [facility] Start: 11-19-2025 DIABETES SCREEN [facility] Start: 11-02-2025 End: 11-02-2025 Patient encounter procedure 11/02/2025 8:40 AM EST Office Visit [facility] [address] [place] [phone] Marilu Roach, SUPERINTENDENT MAINTENANCE - OUTSIDE MACHINIST [address] [place] [address] AWV and 6 month [facility] Comment on above: AWV and 6 month Start: 10-28-2025 Annual Wellness Visi t (Medicare) Annual Wellness Visit (Medicare) [facility] Start: 10-27-2025 COVID-19 Vaccine ( season) COVID-19 Vaccine ( season) [facility] Comment on above: Postponed from 06/14 (Patient Refused) Start: 10-27-2025 Influenza vaccination B on [facility] Comment on above: Postponed from 05/14 (Patient Refused) Postponed from 05/14 (Patient Refused) Start: 10-21-2025 Lipid panel Lipids [facility] Start: 09-12-2025 DIABETES SCREEN [facility] Start: 06-14-2025 Influenza vaccination [facility] Start: 05-31-2025 End: 05-31-2025 Patient encounter procedure 05/31/2025 8:00 AM EDT Office Visit [facility] [address] [place] [phone] Pennie Avalos SUPERINTENDENT MAINTENANCE-OUTSIDE MACHINIST [address] [place] [address] [facility] Start: 05-17-2025 End: 05-17-2025 Patient encounter procedure 05/17/2025 8:30 AM EDT Office Visit [address] [phone] Pennie Avalos SUPERINTENDENT MAINTENANCE-OUTSIDE MACHINIST [address] [place] [address] [facility] Start: 05-08-2025 End: 05-08-2025 Patient encounter procedure 05/08/2025 10:30 AM EDT Office Visit [facility] [address] [place] [phone] Jayla Hernandez, SUPERINTENDENT MAINTENANCE-OUTSIDE MACHINIST [address] [place] [address] [facility] Start: 04-30-2025 End: 04-30-2025 Follow-up encounter 04/30/2025 9:40 AM EDT Visit (SP) Office Hematology/Oncology [address] [place] [address] [place] [address] Caesar Vazquez MD [address] [place] [address] [place] [address] 6 month follow up after ct and lab [facility] Comment on above: [address] and lab Start: 04-27-2025 End: 04-27-2025 Patient encounter procedure 04/27/2025 8:40 AM EDT Office Visit [facility] [address] [place] [phone] Might, Marilu W, SUPERINTENDENT MAINTENANCE - OUTSIDE MACHINIST [address] [place] [address] 6 months [facility] [place] Comment on above: 6 months Start: 04-23-2025 End: 04-23-2025 Patient encounter procedure 04/23/2025 7:45 AM EDT Appointment Radiology Pet CT [address] [place] [address] [place] [address] Ct CAP with contrast and lab Radiology Pet CT Comment on above: Ct CAP with contrast and lab Start: 04-22-2025 End: 10-23-2025 CBC W Auto Differential panel - Blood COMPLETE BLOOD COUNT AND DIFFERENTIAL Lab Routine Malignant 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) Malignant neoplasm of urinary bladder, unspecified site (HCC) CKD (chronic kidney disease), stage V (HCC) Expected: 04/22/2025 (Approximate), Expires: 10/23/2025 [facility] Comment on above: Expected: 04/22/2025 (Approximate), Expires: 10/23/2025 Start: 04-22-2025 End: 10-23-2025 Comprehensive metabolic 2000 panel - Serum or Plasma COMPREHENSIVE METABOLIC PANEL Lab Routine Malignant 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) Malignant neoplasm of urinary bladder, unspecified site (HCC) CKD (chronic kidney disease), stage V (HCC) Expected: 04/22/2025 (Approximate), Expires: 10/23/2025 [facility] Comment on above: Expected: 04/22/2025 (Approximate), Expires: 10/23/2025 Start: 04-22-2025 End: 11-22-2025 CT Abdomen and Pelvis W contrast IV CT ABD/PEL W IVCON Radiology Routine Malignant 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) Malignant neoplasm of urinary bladder, unspecified site (HCC) CKD (chronic kidney disease), stage V (HCC) Malignant neoplasm of ureteric orifice (HCC) Expected: 04/22/2025 (Approximate), Expires: 11/22/2025 [facility] Work Phone: Comment on above: Expected: 04/22/2025 (Approximate), Expires: 11/22/2025 Start: 04-22-2025 End: 11-22-2025 CT Chest W contrast IV CT CHEST W IVCON Radiology Routine Malignant 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) Malignant neoplasm of urinary bladder, unspecified site (HCC) CKD (chronic kidney disease), stage V (HCC) Malignant neoplasm of ureteric orifice (HCC) Expected: 04/22/2025 (Approximate), Expires: 11/22/2025 [facility] Comment on above: Expected: 04/22/2025 (Approximate), Expires: 11/22/2025 Start: 04-22-2025 Depression Screen Depression Screen [facility] Start: 04-22-2025 Respiratory Syncytia l Virus (RSV) or age 60 yrs+ (1 - 1-dose 75+ series) Respiratory Syncytial Virus (RSV) or age 60 yrs+ (1 - 1-dose 75+ series) [facility] Comment on above: Postponed from 04/24 (Patient Refused) Start: 04-22-2025 Shingles vaccine (2 of 2) Banks gles vaccine (2 of 2) [facility] Comment on above: Postponed from 10/07 (Patient Refused) Start: 04-22-2025 End: 07-22-2025 TSH W/REFLEX FT4 TSH W/REFLEX FT4 Lab Routine Disorder of thyroid Expected: 04/22/2025 (Approximate), Expires: 07/22/2025 [facility] Comment on above: Expected: 04/22/2025 (Approximate), Expires: 07/22/2025 Start: 03-16-2025 DIABETES SCREEN DI[facility]CRE[facility] Start: 03-05-2025 DIABETES SCREEN DIABETES SCREEN [facility] Start: 02-19-2025 DIABETES SCREEN DIABETES SCREEN [facility] Start: 02-12-2025 DIABETES SCREEN DIABETES SCREEN [facility] Start: 02-05-2025 DIABETES SCREEN DIABETES SCREEN [facility] Start: 01-22-2025 DIABETES SCREEN DIABETES SCREEN [facility] Start: 01-15-2025 DIABETES SCREEN DIABETES SCREEN [facility] Start: 01-08-2025 DIABETES SCREEN DIABETES SCREEN [facility] Start: 10-27-2024 End: 10-27-2024 Patient encounter procedure 10/27/2024 9:00 AM EST Office Visit [facility] [address] [place] [phone] Marilu Roach W, SUPERINTENDENT MAINTENANCE - OUTSIDE MACHINIST [address] [facility] [place] [address] 6 mos w/Labs awv Krystina [facility] [place] Comment on above: 6 mos w/Labs awv Start: 10-23-2024 End: 10-23-2024 Follow-up encounter 10/23/2024 9:40 AM EST Visit (SP) Office Hematology/Oncology [address] [place] [address] Caesar Vazquez MD [address] [place] [address] 9 week follow up for ct and lab review Hematology/Oncology Comment on above: [address] follow up for ct and lab review Start: 10-16-2024 End: 08-21-2025 CBC W Auto Differential panel - Blood COMPLETE BLOOD COUNT AND DIFFERENTIAL Lab Routine Malignant 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) Expected: 10/16/2024 (Approximate), Expires: 08/21/2025 [facility] Comment on above: Expected: 10/16/2024 (Approximate), Expires: 08/21/2025 Start: 10-16-2024 End: 08-21-2025 Comprehensive metabolic 2000 panel - Serum or Plasma COMPREHENSIVE METABOLIC PANEL Lab Routine Malignant 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) Expected: 10/16/2024 (Approximate), Expires: 08/21/2025 [facility] Comment on above: Expected: 10/16/2024 (Approximate), Expires: 08/21/2025 Start: 10-16-2024 End: 09-20-2025 CT Abdomen and Pelvis W contrast IV CT ABD/PEL W IVCON Radiology Routine Malignant 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) Expected: 10/16/2024 (Approximate), Expires: 09/20/2025 [facility] Work Phone: Comment on above: Expected: 10/16/2024 (Approximate), Expires: 09/20/2025 Start: 10-16-2024 End: 09-20-2025 CT Chest W contrast IV CT CHEST W IVCON Radiology Routine Malignant 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) Expected: 10/16/2024 (Approximate), Expires: 09/20/2025 [facility] Comment on above: Expected: 10/16/2024 (Approximate), Expires: 09/20/2025 Start: 10-16-2024 End: 10-16-2024 Patient encounter procedure 10/16/2024 7:45 AM EST Appointment Radiology Pet CT [address] [place] [address] CAP with contrast and lab Radiology Pet CT Comment on above: [address] CAP with c ontrast and lab Start: 10-14-2024 Advance Directive Discussion Advance Directive Discussion [facility] Start: 07-06-2024 End: 07-06-2024 Follow-up encounter Hematology/Oncology Comment on above: follow up and chemot x Keytruda Start: 07-06-2024 End: 07-06-2024 Patient encounter procedure 07/06/2024 8:45 AM EDT Office Visit [facility] [address] [place] [address] follow up and chemotx Keytruda [facility] Comment on above: follow up and chemot x Keytruda Start: 06-29-2024 End: 09-28-2024 CBC W Auto Differential panel - Blood COMPLETE BLOOD COUNT AND DIFFERENTIAL Lab Routine 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), 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, unspecified site (HCC) Disorder of thyroid Abnormal blood chemistry Expected: 06/29/2024 (Approximate), Expires: 09/28/2024 [facility] Comment on above: Expected: 06/29/2024 (Approximate), Expires: 09/28/2024 Start: 06-29-2024 End: 09-28-2024 Comprehensive metabolic 2000 panel - Serum or Plasma COMPREHENSIVE METABOLIC PANEL Lab Routine 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), 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, unspecified site (HCC) Disorder of thyroid Abnormal blood chemistry Expected: 06/29/2024 (Approximate), Expires: 09/28/2024 [facility] Comment on above: Expected: 06/29/2024 (Approximate), Expires: 09/28/2024 Start: 06-29-2024 End: 09-28-2024 Cortisol [Mass/volume] in Serum or Plasma CORTISOL, SERUM Lab Routine 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), 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, unspecified site (HCC) Disorder of thyroid Abnormal blood chemistry Expected: 06/29/2024 (Approximate), Expires: 09/28/2024 [facility] Comment on above: Expected: 06/29/2024 (Approximate), Expires: 09/28/2024 Start: 06-29-2024 End: 06-17-2025 CT Abdomen and Pelvis W contrast IV CT ABD/PEL W IVCON Radiology Routine 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), 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, unspecified site (HCC) Disorder of thyroid Abnormal blood chemistry Expected: 06/29/2024 (Approximate), Expires: 06/17/2025 [facility] Work Phone: Comment on above: Expected: 06/29/2024 (Approximate), Expires: 06/17/2025 Start: 06-29-2024 End: 06-17-2025 CT Chest W contrast IV CT CHEST W IVCON Radiology Routine 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), 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, unspecified site (HCC) Disorder of thyroid Abnormal blood chemistry Expected: 06/29/2024 (Approximate), Expires: 06/17/2025 [facility] Comment on above: Expected: 06/29/2024 (Approximate), Expires: 06/17/2025 Start: 06-29-2024 End: 09-28-2024 Hemoglobin A1c in Blood HEMOGLOBIN A1C Lab Routine 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), 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, unspecified site (HCC) Disorder of thyroid Abnormal blood chemistry Expected: 06/29/2024 (Approximate), Expires: 09/28/2024 [facility] Comment on above: Expected: 06/29/2024 (Approximate), Expires: 09/28/2024 Start: 06-29-2024 End: 09-28-2024 Thyrotropin [Units/volume] in Serum or Plasma THYROID STIMULATING HORMONE Lab Routine 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), 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, unspecified site (HCC) Disorder of thyroid Abnormal blood chemistry Expected: 06/29/2024 (Approximate), Expires: 09/28/2024 [facility] Comment on above: Expected: 06/29/2024 (Approximate), Expires: 09/28/2024 Start: 06-29-2024 End: 06-29-2024 Patient encounter procedure 06/29/2024 8:45 AM EDT Appointment Radiology Pet CT [address] [place] [address] [place] [address] ct [address] Comment on above: ct cap Start: 06-14-2024 COVID-19 Vaccine ( season) COVID-19 Vaccine ( season) [facility] Start: 06-14-2024 COVID-19 Vaccine ( season) COVID-19 Vaccine ( season) [facility] Start: 06-14-2024 Covid-19 Vaccine ( season) Covid-19 Vaccine ( season) [facility] Start: 06-14-2024 Covid-19 Vaccine ( season) Covid-19 Vaccine ( season) [facility] Start: 06-14-2024 Influenza vaccination C [facility] Start: 05-14-2024 Influenza vaccination B ON [facility] Start: 04-22-2024 End: 04-22-2024 Patient encounter procedure 04/22/2024 2:00 PM EDT Office Visit [facility] [address] [place] [phone] Marilu Roach, SUPERINTENDENT MAINTENANCE - 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 MACHINIST [address] [place] [address] establish care- okay per marilu [facility] Comment on above: establish care- okay per marilu Start: 04-21-2024 End: 04-21-2024 Patient encounter procedure 04/21/2024 12:30 PM EDT Office Visit [facility] [address] [place] [phone] Jenni De La Rosa, SUPERINTENDENT MAINTENANCE - OUTSIDE MACHINIST [address] [place] [address] gastritis [facility] Comment on above: gastritis Start: 03-22-2024 Annual Wellness Visi t (Medicare) Annual Wellness Visit (Medicare) [facility] Start: 03-20-2024 End: 03-20-2024 Follow-up encounter Hematology/Oncology Comment on above: follow up and chemot x Keytruda Start: 03-20-2024 End: 03-20-2024 Patient encounter procedure 03/20/2024 8:30 AM EDT Office Visit [facility] [address] [place] [address] Labs This Day Per [place] Staff Message [facility] Comment on above: Labs This Day Per [place] Staff Message Start: 02-05-2024 End: 02-05-2024 ambulatory 02/05/2024 9:15 AM EDT [facility] Hematology/Oncology [address] [place] [address] chemotx Keytruda Hematology/Oncology Comment on above: chemotx Keytruda Start: 02-05-2024 End: 02-05-2024 Follow-up encounter 02/05/2024 9:00 AM EDT Visit () Office Hematology/Oncology [address] [place] [address] Caesar Vazquez MD [address] [place] [address] 6 week follow up w/ possible Keytruda Hematology/Oncology Comment on above: 6 week follow up w/ possible Keytruda Start: 12-24-2023 End: 03-24-2024 CBC W Auto Differential panel - Blood CBC + DIFF Lab Routine 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), stage V (HCC) Abnormal weight loss Malignant neoplasm of urinary bladder, unspecified site (HCC) Expected: 12/24/2023, Expires: 03/24/2024 [facility] Work Phone: Comment on above: Expected: 12/24/2023 , Expires: 03/24/2024 Start: 12-24-2023 End: 03-24-2024 Comprehensive metabolic 2000 panel - Serum or Plasma COMP METABOLIC PANEL Lab Routine 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), stage V (HCC) Abnormal weight loss Malignant neoplasm of urinary bladder, unspecified site (HCC) Expected: 12/24/2023, Expires: 03/24/2024 [facility] Work Phone: Comment on above: Expected: 12/24/2023 , Expires: 03/24/2024 Start: 10-14-2023 Advance Directive Discussion Advance Directive Discussion [facility] Start: 10-14-2023 Behavioral Health Screening Behavioral Health Screening [facility] Start: 10-14-2023 Depression Assessment Depression Ass essment [facility] Start: 10-07-2023 Administration of varicella zoster vaccine Zoster (Shingles) Vaccine (2 of 2) [facility] Start: 10-07-2023 Shingles vaccine (2 of 2) Banks gles vaccine (2 of 2) [facility] Start: 10-07-2023 Shingrix Vaccine (2 of 2) Banks grix Vaccine (2 of 2) [facility] Start: 08-22-2023 End: 08-16-2024 Ct abdomen & pelvis w/contrast material CT ABD/PEL W IVCON Radiology Routine Malignant 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) Expected: 08/22/2023 (Approximate), Expires: 08/16/2024 [facility] Work Phone: Comment on above: Expected: 08/22/2023 (Approximate), Expires: 08/16/2024 Start: 08-22-2023 End: 08-16-2024 CT CHEST W IVCON CT CHEST W IVCON Radiology Routine Malignant 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) Expected: 08/22/2023 (Approximate), Expires: 08/16/2024 [facility] Work Phone: Comment on above: Expected: 08/22/2023 (Approximate), Expires: 08/16/2024 Start: 07-19-2023 End: 09-18-2023 CBC W Auto Differential panel - Blood CBC + DIFF Lab Routine Malignant 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) Malaise and fatigue Expected: 07/19/2023, Expires: 09/18/2023 [facility] Work Phone: Comment on above: Expected: 07/19/2023 , Expires: 09/18/2023 Start: 07-19-2023 End: 09-18-2023 Comprehensive metabolic 2000 panel - Serum or Plasma COMP METABOLIC PANEL Lab Routine Malignant 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) Malaise and fatigue Expected: 07/19/2023, Expires: 09/18/2023 [facility] Work Phone: Comment on above: Expected: 07/19/2023 , Expires: 09/18/2023 Start: 07-19-2023 End: 09-18-2023 Thyrotropin [Units/volume] in Serum or Plasma TSH BLD Lab Routine Malignant 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) Malaise and fatigue Expected: 07/19/2023, Expires: 09/18/2023 [facility] Work Phone: Comment on above: Expected: 07/19/2023 , Expires: 09/18/2023 Start: 06-14-2023 COVID-19 Vaccine ( season) COVID-19 Vaccine () [facility] Start: 06-14-2023 Covid-19 Vaccine ( season) Covid-19 Vaccine ( season) [facility] Start: 06-14-2023 Influenza vaccination C [facility] Start: 04-25-2023 End: 06-25-2023 Thyroxine (T4) free [Mass/volume] in Serum or Plasma [facility] Work Phone: Comment on above: Expected: 04/25/2023 , Expires: 06/25/2023 Start: 04-25-2023 End: 06-25-2023 Triiodothyronine (T3) [Mass/volume] in Serum or Plasma [facility] Work Phone: Comment on above: Expected: 04/25/2023 , Expires: 06/25/2023 Start: 12-19-2022 End: 02-18-2023 Renal function 2000 panel - Serum or Plasma RENAL FUNCTION PANEL Lab Routine CELSO (acute kidney injury) ([facility]) Expected: 12/19/2022, Expires: 02/18/2023 [facility] Work Phone: Comment on above: Expected: 12/19/2022 , Expires: 02/18/2023 Start: 10-14-2022 ADVANCE DIRECTIVE DISCUSSION ADVANCE DIRECTIVE DISCUSSION [facility] Start: 10-14-2022 DEPRESSION ASSESSMENT DEPRESSION ASS ESSMENT [facility] Start: 06-14-2022 Influenza vaccination [facility] Start: 03-13-2022 End: 03-13-2023 ECG COMPLETE ECG COMPLETE ECG Routine 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, unspecified laterality (HCC) Expected: 03/13/2022, Expires: 03/13/2023 [facility] Work Phone: Comment on above: Expected: 03/13/2022 , Expires: 03/13/2023 Start: 02-19-2022 End: 04-21-2022 CBC W Auto Differential panel - Blood CBC + DIFF Lab Routine Malignant neoplasm of ureter, unspecified laterality (HCC) Expected: 02/19/2022, Expires: 04/21/2022 [facility] Work Phone: Comment on above: Expected: 02/19/2022 , Expires: 04/21/2022 Start: 02-19-2022 End: 04-21-2022 Comprehensive metabolic 2000 panel - Serum or Plasma COMP METABOLIC PANEL Lab Routine Malignant neoplasm of ureter, unspecified laterality (HCC) Expected: 02/19/2022, Expires: 04/21/2022 [facility] Work Phone: Comment on above: Expected: 02/19/2022 , Expires: 04/21/2022 Start: 01-22-2022 End: 03-24-2022 CBC W Auto Differential panel - Blood CBC + DIFF Lab Routine Malignant neoplasm of ureter, unspecified laterality (HCC) Expected: 01/22/2022, Expires: 03/24/2022 [facility] Work Phone: Comment on above: Expected: 01/22/2022 , Expires: 03/24/2022 Start: 01-22-2022 End: 03-24-2022 Comprehensive metabolic 2000 panel - Serum or Plasma COMP METABOLIC PANEL Lab Routine Malignant neoplasm of ureter, unspecified laterality (HCC) Expected: 01/22/2022, Expires: 03/24/2022 [facility] Work Phone: Comment on above: Expected: 01/22/2022 , Expires: 03/24/2022 Start: 12-14-2021 COVID-19 VACCINE (4 - Booster for Pfizer series) COVID-19 VACCINE (4 - Booster for Pfizer series) [facility] Start: 11-10-2021 COVID-19 VACCINE (4 - Booster for Pfizer series) COVID-19 VACCINE (4 - Booster for Pfizer series) [facility] Start: 11-10-2021 COVID-19 VACCINE (6 - Pfizer series) COVID-19 VACCINE (6 - Pfizer series) [facility] Start: 10-14-2021 ADVANCE DIRECTIVE DISCUSSION ADVANCE DIRECTIVE DISCUSSION [facility] Start: 10-14-2021 DEPRESSION ASSESSMENT DEPRESSION ASS ESSMENT [facility] Start: 06-14-2021 Influenza vaccination INFLUENZA (#1) [facility] Start: 02-13-2018 PNEUMOCOCCAL: 65+ (3 - PPSV23 or PCV20) PNEUMOCOCCAL: 65+ (3 - PPSV23 or PCV20) [facility] Start: 01-19-2017 Lipid panel Lipids [facility] Start: 2014 RSV Vaccine (1 - 1-d ose 75+ series) RSV Vaccine (1 - 1-dose 75+ series) [facility] Start: 01-16-2013 Urine microalbumin profile DTAP,TDAP ,TD (1 - Tdap) [facility] Start: 04-13-2005 Medicare Annual Well ness Visit Medicare Annual Wellness Visit [facility] Start: 2004 Fall Risk Screening Fall Risk Screen [facility] Start: 1999 Hepatitis B Vaccine (1 of 3 - Risk 3-dose series) Hepatitis B Vaccine (1 of 3 - Risk 3-dose series) [facility] Start: 1999 Respiratory Syncytia l Virus (RSV) or age 60 yrs+ (1 - 1-dose 60+ series) Respiratory Syncytial Virus (RSV) or age 60 yrs+ (1 - 1-dose 60+ series) [facility] Start: 1999 RSV Vaccine (1 - 1-d ose 60+ series) RSV Vaccine (1 - 1-dose 60+ series) [facility] Start: 1989 SHINGRIX VACCINE (1 of 2) BANKS GRIX VACCINE (1 of 2) [facility] Start: 1958 Hepatitis A Vaccine (1 of 2 - Risk 2-dose series) Hepatitis A Vaccine (1 of 2 - Risk 2-dose series) [facility] Start: 1958 SHINGRIX VACCINE (1 of 2) BANKS GRIX VACCINE (1 of 2) [facility] Start: 1957 Anxiety Screening Anxiety Screening [facility] Start: 1957 Depression Screening Depression Scre [facility] Start: 1957 MMR Vaccine (1 of 2 - Risk 2-dose series) MMR Vaccine (1 of 2 - Risk 2-dose series) [facility] Start: 1951 Depression Screen Depression Screen [facility] Start: 1951 Depression Screening Depression Scre [facility] Start: 1949 Meningococcal B Vacc ine: Consider Based On Risk (1 of 4 - Increased Risk) Meningococcal B Vaccine: Consider Based On Risk (1 of 4 - Increased Risk) [facility] End: 06-14-2024 Ct abdomen & pelvis w/contrast material CT ABD/PEL W IVCON Radiology Routine Malignant 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) 1 Occurrences starting 05/16/2023 until 06/14/2024 [facility] Work Phone: Comment on above: 1 Occurrences starti ng 05/16/2023 until 06/14/2024 End: 01-18-2025 CT Abdomen and Pelvis W contrast IV CT ABD/PEL W IVCON Radiology Routine Malignant neoplasm of urinary bladder, unspecified site (HCC) 1 Occurrences starting 12/20/2023 until 01/18/2025 [facility] Work Phone: Comment on above: 1 Occurrences starti ng 12/20/2023 until 01/18/2025 End: 01-18-2025 CT Chest W contrast IV CT CHEST W IVCON Radiology Routine Malignant neoplasm of urinary bladder, unspecified site (HCC) 1 Occurrences starting 12/20/2023 until 01/18/2025 [facility] Work Phone: Comment on above: 1 Occurrences starti ng 12/20/2023 until 01/18/2025 End: 06-14-2024 CT CHEST W IVCON CT CHEST W IVCON Radiology Routine Malignant 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) 1 Occurrences starting 05/16/2023 until 06/14/2024 [facility] Work Phone: Comment on above: 1 Occurrences starti ng 05/16/2023 until 06/14/2024 End: 01-04-2025 Culture, Wound (with Gram Stain) [facility] Comment on above: 1 Occurrences starti ng 01/04/2025 until 01/04/2025 ECG COMPLETE ECG COMPLETE ECG Routine Pre-op evaluation 09/12/2022 11:[address] [facility] Work Phone: EKG 12 Lead EKG 12 Lead ECG STAT 03/22/2024 5:52 PM EDT [facility] REFERRAL FOR ADDITIO NAL BIOMARKER AND MOLECULAR TESTING REFERRAL FOR ADDITIONAL BIOMARKER AND MOLECULAR TESTING Lab Routine Malignant neoplasm of ureter, unspecified laterality (HCC) 12/03/2022 9:[address] [facility] Work Phone: [facility] c [facility] Immunizations Immunization Date Immunization Notes Care Provider [facility] 08-12-2023 zoster vaccine recombinant Chair Fam Work Phone: [facility] 08-12-2023 zoster vaccine, unspecified formulation Pennie Jaxon SUPERINTENDENT MA[facility]TENA[employer]CE[facility] Work Phone: [facility] 02-26-2022 diphtheria, tetanus toxoids and pertussis vaccine Chair Fam Work Phone: [facility] 09-15-2021 SARS-CoV-2 (COVID-19 ) mRNA BNT-162b2 vax Jian RODRIGUEZ [facility] 11-26-2020 SARS-CoV-2 (COVID-19 ) mRNA BNT-162b2 vax Jian RODRIGUEZ [facility] 11-05-2020 SARS-CoV-2 (COVID-19 ) mRNA BNT-162b2 vax Jian RODRIGUEZ [facility] 08-09-2015 influenza nasal, unspecified formulation Chair Fam Work Phone: [facility] 08-09-2015 influenza virus vaccine, unspecified formulation Jian RODRIGUEZ [facility] 08-09-2015 influenza, intraderm al, quadrivalent, preservative free, injectable Soren Perea MD Work Phone: [facility] 01-07-2015 pneumococcal conjuga te vaccine, 13 valent Soren Perea MD Work Phone: [facility] 02-13-2013 pneumococcal polysaccharide vaccine, 23 valent Soren Perea MD Work Phone: [facility] 01-15-2013 tetanus and diphther ia toxoids, adsorbed, preservative free, for adult use (2 Lf of tetanus toxoid and 2 Lf of diphtheria toxoid) Jian JENNIFER [facility] 01-15-2013 tetanus and diphther ia toxoids, adsorbed, preservative free, for adult use (5 Lf of tetanus toxoid and 2 Lf of diphtheria toxoid) Soren Perea MD Work Phone: [facility] 01-15-2013 tetanus and diphther ia toxoids, not adsorbed, for adult use Leni Santiago MD Work Phone: [facility] NEGATED: Highlighted row has not occurred!09-03-2018 influenza, injectable, quadrivalent, preservative free Pennie Avalos SUPERINTENDENT MAINTENANCE-[employer]TSIDE [employer]ACHINIST Work Phone: [facility] Comment on above: Deferred: Patient Re fused Payers Date Payer Category Payer Private Health Insurance [id number] 2019 Medicare [id number] 2017 Private Health Insurance [id number] 2007 Managed Care Other (unspecified) [facility] [id number] 2005 Medicare MEDICARE MEDICAR E A AND B [id number] 2005-Present [phone] [address] [address] [place] [address] Medicare [id number] 2004 Medicare [id number] 1959 Medicare [id number] 1959 Medicare [id number] 1959 Unknown [id number] 1939 Unknown [id number] .593 1939 Unknown [id number] 2.16.840.1.146661.3.579.2 .593 1939 Unknown [id number] 2.16.840.1.638921.3.579.2 .593 1939 Unknown [id number] 2.16.840.1.100478.3.579.2 .593 1939 Unknown [id number] 2.16.840.1.462838.3.579.2 .593 1939 Unknown [id number] 2.16.840.1.216828.3.579.2 .727 1939 Unknown [id number] 2.16.840.1.814313.3.579.2 .727 1939 Unknown [id number] 2.16.840.1.093581.3.579.2 .173 1939 Unknown [id number] 2.16.840.1.071436.3.579.2 .173 1939 Unknown [id number] 2.16.840.1.165983.3.579.2 .173 1939 Unknown [id number] 2.16.840.1.711366.3.579.2 .173 1939 Unknown [id number] 2.16.840.1.800378.3.579.2 .173 1939 Unknown [id number] 2.16.840.1.047333.3.579.2 .1282 1939 Unknown [id number] 2.16.840.1.281788.3.579.2 .128 1939 Unknown [id number] 2.16.840.1.622183.3.579.2 .128 1939 Unknown [id number] 2.16.840.1.776509.3.579.2 .1285 1939 Unknown [id number] [id number] .128 Unknown Unknown [id number] Social History Date Type Detail Facility Start: 07-14-2018 End: 03-16-2023 Tobacco smoking status NHIS Ex-smoker [facility] Comment on above: patient quit smoking over 30 years ago Start: 10-14-1940 End: 10-14-1970 History of tobacco use Current smoker [facility] Start: 10-14-1940 End: 10-14-1970 History of tobacco use Cigarette Smoker [facility] Start: 07-14-2018 End: 11-24-2020 Cigarettes smoked current (pack per day) - Reported 1 [facility] Start: 07-14-2018 End: 03-16-2023 Tobacco use and exposure Smokeless tobacco non-user [facility] Start: 01-08-2022 End: 05-17-2025 Alcohol intake Current non-drinker of alcohol (finding) [facility] Start: 1940 Sex Assigned At Male C [facility] Start: 12-29-2021 End: 09-12-2022 Exposure to SARS-CoV-2 (event) Not sure [facility] Start: 11-24-2020 End: 03-07-2023 Sex Assigned At [facility] History of tobacco use Passive smoker [facility] Tobacco smoking status Never [facility] Comment on above: patient quit smoking over 30 years ago Start: 09-28-2019 Gender identity Identifies as male gender (finding) [facility] Start: 09-28-2019 Sexual orientation Heterosexual (nestor ivette) [facility] Start: 03-22-2024 End: 01-04-2025 Alcohol intake Lifetime non-drinker (finding) [employer] How often to you hav e a drink containing alcohol? Never [employer] Start: 1940 Sex Assigned At Not on file [employer] Has the electric, [email or web address] s, oil, or water [employer] threatened to shut off services in your home in past 12Mo No [employer] (I/We) worried radu alicea (my/our) food would run out before (I/we) got money to buy more. Never true [employer] Start: 05-19-2015 End: 01-20-2016 Sex Male (finding) [employer] Medical Equipment Procedure Code Equipment Code Equipment Origin al Text Equipment Identifier Dates Inlay Sylvester Ureteral Stent Kit 7f X 26cm [id number] Start: 10-29-2019 Stent Inlay Opti ma 7fr Taper [place] Green Polymer Phreecoat 24cm Ureteral - [id number] Start: 08-12-2019 Stent Inlay Opti ma 7fr Taper [place] Green Polymer Phreecoat 26cm Ureteral - [id number] Start: 09-30-2019 Stent Nicore Inl ay Sylvester 7fr Taper [place] Green Nitinol Polymer 24cm - [id number] Start: 10-26-2021 Stent Inlay Opti ma 6fr Taper [place] Green Polymer Phreecoat 24cm Ureteral - [id number] Start: 11-12-2022 Cardiac pacemaker, device (physical object) ([id number]) Pacemaker Ldls Pm 19.5f 32.2 Mm [facility] - [id number] - [id number], [id number] FDA Start: 04-21-2025 Cardiac pacemaker, device (physical object) ([id number]) Pacemaker Ldls Dr Levy 19.5f 38.0 Mm Rv [facility] Str[facility] - [id number] - [id number], [id number] [facility] Start: 04-21-2025 Goals Date Patient Goal Desired Activity /State Personal health goal Comment on above: Formatting of this n ote might be different from the original. Evaluation of progress towards goal: patient progressing toward safe discharge home. Functional Status Date Assessment Result Facility 12-05-2022 Functional Status N/A [facility] 11-18-2022 Are you deaf, or do you have serious difficulty hearing No 11/18/2022 10:06 AM Pat Cary RN No [facility] 11-18-2022 Are you blind, or do you have serious difficulty seeing, even when wearing glasses No 11/18/2022 10:06 AM Pat Cary RN No [facility] 11-18-2022 Do you have serious difficulty walking or climbing stairs No 11/18/2022 10:06 AM Pat Cary RN No [facility] 11-18-2022 Do you have difficul ty dressing or bathing No 11/18/2022 10:06 AM Pat Cary RN No [facility] 11-18-2022 Because of a physica l, mental, or emotional condition, do you have difficulty doing errands alone such as visiting a physician's office or shopping No 11/18/2022 10:06 AM Pat Cary RN No [facility] Mental Status Date Assessment Result Facility 11-18-2022 Because of a physica l, mental, or emotional condition, do you have serious difficulty concentrating, remembering, or making decisions No 11/18/2022 10:06 AM Pat Cary RN No [facility] Clinical Notes 07-08-2020 to 05-17-2025 LIZ Horvath - 05/17/2025 8:30 AM EDTPatient LIZ Jones - 05/08/2025 10:30 AM EDTTelephone Encounter - Gill Chiu, RAJAN - 05/05/2025 2:14 PM EDT Note Date & Type Note Facility 05-17-2025 History of Present illness Narrative Images from the original note were not included. Wound Care Progress Note Patient: Juan Jose Austin Date of : 1940 Chief Complaint: Follow-up left chest wound Subjective/HPI: Juan Jose is a 85 y.o. male who presents to [facility] for evaluation of 1 ulcer(s)/wound(s) on the left chest. The wound(s) was(were) first assessed in wound clinic 05/03/25. Current daily wound care includes dry dressing. Patient reports no depth to pack for approximately one week. Patient denies wound pain. He denies fever and chills. Patient reports he completed Keflex as prescribed. He reports he had a televisit with Infectious Disease and no additional antibiotics ordered. Patient denies fever and chills. Patient reports sutures removed by nursing staff in Dr. Mccoy's office. He reports he has a follow-up with Dr. Mccoy next week. Historical data: Patient with history of pacemaker pocket infection and erosion. Wound culture from ER 04/19/25 positive for MSSA and rare NSF. Patient underwent EP invasive intervention to remove the device. Patient reports a new device was place in his groin. During hospitalization patient was followed by Infectious Disease and treated with IV vancomycin, discharged on Keflex 500 mg TID x12 days. In reviewing ID note on day of discharge, it appears intraoperative cultures were negative at that time. 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 CULTURE RESULTS Staphylococcus aureus Abnormal Staphylococcus aureus Abnormal Variant Staphylococcus aureus Abnormal 2nd Variant Resulting Agency: [facility] Susceptibility Staphylococcus aureus (1) Antibiotic Interpretation ADONAY value(ug/ml) Method Status Clindamycin Resistant 0.25 Not Specified Final Inducible resistance to Clindamycin detected Doxycycline Susceptible <=0.5 Not Specified Final Oxacillin Susceptible <=0.25 Not Specified Final Trimethoprim + Sulfamethoxazole Susceptible <=0.5 Not Specified Final Vancomycin Susceptible 1.0 Not Specified Final Cefazolin Susceptible (deduced) Not Specified Final Staphylococcus aureus (2) Antibiotic Interpretation ADONAY value(ug/ml) Method Status Clindamycin Resistant 0.25 Not Specified Final Inducible resistance to Clindamycin detected Doxycycline Susceptible <=0.5 Not Specified Final Oxacillin Susceptible 0.5 Not Specified Final Trimethoprim + Sulfamethoxazole Susceptible <=0.5 Not Specified Final Vancomycin Susceptible <=0.5 Not Specified Final Cefazolin Susceptible (deduced) Not Specified Final Staphylococcus aureus (3) Antibiotic Interpretation ADONAY value(ug/ml) Method Status Clindamycin Resistant 0.25 Not Specified Final Inducible resistance to Clindamycin detected Doxycycline Susceptible <=0.5 Not Specified Final Oxacillin Susceptible 0.5 Not Specified Final Trimethoprim + Sulfamethoxazole Susceptible <=0.5 Not Specified Final Vancomycin Susceptible 1.0 Not Specified Final Cefazolin Susceptible (deduced) Not Specified Final CULTURE RESULTS Staphylococcus aureus Abnormal Staphylococcus, coagulase negative Abnormal Not S. lugdunensis Staphylococcus aureus Abnormal Variant Isolate screened susceptible to Oxacillin. Resulting Agency: [facility] Susceptibility Staphylococcus aureus (3) Antibiotic Interpretation ADONAY value(ug/ml) Method Status Clindamycin Resistant 0.25 Not Specified Final Inducible resistance to Clindamycin detected Trimethoprim + Sulfamethoxazole Susceptible <=0.5 Not Specified Final Vancomycin Susceptible <=0.5 Not Specified Final Staphylococcus aureus (1) Antibiotic Interpretation ADONAY value(ug/ml) Method Status Clindamycin Resistant 0.25 Not Specified Final Inducible resistance to Clindamycin detected Doxycycline Susceptible <=0.5 Not Specified Final Oxacillin Susceptible <=0.25 Not Specified Final Trimethoprim + Sulfamethoxazole Susceptible <=0.5 Not Specified Final Vancomycin Susceptible 1.0 Not Specified Final Cefazolin Susceptible (deduced) Not Specified Final MARI 04/20/25 noted to be negative for vegetations. Patient accompanied by: Self. Nutritional screening: Screen indicates patient is taking increased amounts of protein in the diet. Patient does deny fever, chills, sweats or other symptoms of infection. Diabetic Blood Sugar: Patient denies history of diabetes. No results found for: HGBA1C Tobacco: former smoker. Contributing Comorbid Conditions: Pacemaker pocket infection/erosion s/p removal, HTN, history of ureter CA. Travel Screening Question Response Have you been in contact with someone who was sick? No / Unsure Do you have any of the following new or worsening symptoms? Shortness of breath Have you traveled internationally or domestically in the last month? No Travel History Travel since 04/03/25 No documented travel since 04/03/25 Patient Active Problem List Diagnosis Essential hypertension HLD (hyperlipidemia) Ureter cancer (CMS-HCC) Pacemaker complications, initial encounter Open wound of left chest wall Surgical wound present 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 Past Medical History: Diagnosis Date Arrhythmia Cancer (CMS-HCC) Bladder Cataract HLD (hyperlipidemia) 09/04/2017 Hypertension Inflammatory bowel disease Varicella Visual impairment Past Surgical History: Procedure Laterality Date A-V CARDIAC PACEMAKER INSERTION 03/18/2023 [employer] COLONOSCOPY EP Invasive- aveir dc ppm/bsi ppm generator removal N/A 04/21/2025 Performed by Bryan Mccoy MD at [facility] (EP) HERNIA REPAIR NEPHRECTOMY Left jul 03, 2018 Current Outpatient Medications Medication Sig Dispense Refill amLODIPine (NORVASC) 10 mg tablet Take 0.5 tablets (5 mg total) by mouth in the morning. aspirin 81 mg chewable tablet Chew 1 tablet (81 mg total) and swallow in the morning. atorvastatin (LIPITOR) 10 mg tablet TAKE ONE TABLET BY MOUTH DAILY 90 tablet 1 balsalazide (COLAZAL) 750 mg capsule Take 1 capsule (750 mg total) by mouth in the morning. Take one three times daily . ferrous sulfate 325 (65 FE) mg tablet Take 1 tablet (325 mg total) by mouth. Take one three times weekly furosemide (LASIX) 20 mg tablet Take 2 tablets (40 mg total) by mouth daily. glucosamine-chondroitin 500-400 mg tablet Take 1 tablet by mouth in the morning. isosorbide mononitrate (IMDUR) 30 mg 24 hr tablet Take 1 tablet (30 mg total) by mouth daily. magnesium oxide (MAGOX) 400 mg tablet Take 1 tablet (400 mg total) by mouth in the morning. 30 tablet 2 metoprolol succinate XL (TOPROL XL) 25 mg 24 hr tablet Take 2 tablets (50 mg total) by mouth in the morning. pantoprazole (PROTONIX) 40 mg EC tablet Take 1 tablet (40 mg total) by mouth in the morning. potassium chloride (KLOR-CON SPRINKLE) 10 MEQ CR capsule Take 1 capsule (10 mEq total) by mouth in the morning. tamsulosin (FLOMAX) 0.4 mg capsule Take 1 capsule (0.4 mg total) by mouth nightly. No current facility-administered medications for this visit. Allergies Allergen Reactions Adhesive Rash Severe blisters Desonide Other (See Comments) Social History Tobacco Use Smoking status: Former Types: Cigarettes Smokeless tobacco: Never Substance Use Topics Alcohol use: No The following portions of the patient's history were reviewed and updated as appropriate: allergies, current medications, past family history, past medical history, past social history, past surgical history, problem list, and medication reconciliation was completed including current medication and post discharge medication. Pain: Pain Scale 0/10: 0 Wound Focused ROS: Review of Systems Constitutional: Negative for chills and fever. HENT: Negative for trouble swallowing. Respiratory: Negative for cough and shortness of breath. Cardiovascular: Negative for chest pain (Denies cardiac chest pain.) and leg swelling. Reports chest tenderness related to defibrillation during procedure is improving. Gastrointestinal: Negative for abdominal pain, diarrhea, nausea and vomiting. Reports one loose stool daily x2 days. Denies abdominal pain and blood in stool. Musculoskeletal: Negative for gait problem. Skin: Positive for wound. Neurological: Negative for dizziness, light-headedness and numbness. Objective: Vitals: 05/17/25 0847 BP: 168/83 Pulse: 74 Resp: 18 Temp: 36.9 C (98.4 F) TempSrc: Temporal BMI: Estimated body mass index is 27.98 kg/m as calculated from the following: Height as of 05/08/25: 162.6 cm (5' 4 ). Weight as of 05/08/25: 73.9 kg (163 lb). Wound Focused Physical Assessment: Physical Exam Vitals reviewed. Constitutional: General: He is not in acute distress. Appearance: He is not ill-appearing, toxic-appearing or diaphoretic. HENT: Head: Normocephalic and atraumatic. Comments: [place] Eyes: General: No scleral icterus. Extraocular Movements: Extraocular movements intact. Cardiovascular: Rate and Rhythm: Normal rate. Comments: Extremities warm with palpable PT pulses. Pulmonary: Effort: Pulmonary effort is normal. No respiratory distress. Abdominal: General: There is no distension. Palpations: Abdomen is soft. Musculoskeletal: Right lower leg: No edema. Left lower leg: No edema. Skin: General: Skin is warm and dry. Capillary Refill: Capillary refill takes less than 2 seconds. Findings: No erythema. Comments: See wound assessment Neurological: General: No focal deficit present. Mental Status: He is alert and oriented to person, place, and time. Psychiatric: Comments: Pleasant, answers questions appropriately Wound Assessment: Wound 05/03/25 1 Incision Chest Left;Upper (Active) Wound Image 05/17/25847 Site Assessment Red 05/17/25847 Julia-wound Assessment Intact;[place];Blanchable erythema 05/17/25847 Wound Length (cm) 0.3 cm 05/17/25847 Wound Width (cm) 0.1 cm 05/17/25847 Wound Surface Area (cm^2) 0.02 cm^2 05/17/25847 Wound Depth (cm) 0.2 cm 05/17/25847 Wound Volume (cm^3) 0.003 cm^3 05/17/25847 Change in Wound Size % 75 05/17/25847 Drainage Description Serosanguineous 05/17/25847 Drainage Amount Scant 05/17/25847 Treatments Cleansed with;Wound cleanser;Soak with;Vashe/Hypochlorous Acid 05/17/25847 Wound Bed Granulation (%) 100% 05/17/25847 Measurable Improvement: Wound almost closed. No foul drainage or malodor. No SQ emphysema or fluctuance. No overt s/s of active wound infection or cellulitis. There is pink-red skin of periwound which appears to be from dressing irritation. Dressing: The wound(s) was(were) cleansed, Vashe hypochlorous moist guaze to wound, and a clean dressing as below was placed in wound clinic. Patient Status: Well tolerated by patient. Assessment/Plan/Education: 1. Chest wall ulcer, with fat layer exposed (Primary) 2. Infection of pacemaker pocket, initial encounter 3. Open wound of left chest wall, initial encounter Cleanse with mild soap and water, rinse, pat dry Apply Vashe hypochlorous moist guaze to wound x5 minutes, wipe away, pat dry Cover wound with Xeroform gauze Cover with dry dressing of comfort, try 2x2 guaze and paper tape Repeat every 1-2 days Follow-up with Surgeon as scheduled next week Patient instructed in wound care to left chest. Short term goal: medical compliance meterman goal: wound closure(maintained closure) Patient verbalizes understanding of treatment regimen and the importance of adherence and when to contact the physician, HH, and/or EMS. Follow up: Return to the wound clinic in 2 weeks. May call and cancel wound care visit if surgeon deems wound closed at next visit. Instructed to contact wound clinic, PCP, Urgent Care, or ER should symptoms worsen. Instructed to follow-up with PCP, Urgent Care, or ER with non-wound related health concerns. Total time spent was 22 minutes: Preparing to see the patient (e.g., review of tests) Obtaining and/or reviewing separately obtained history Performing a medically appropriate examination and/or evaluation Counseling and educating the patient/family/caregiver Ordering medications, tests, or procedures Documenting clinical information in the electronic or other health record LIZ Horvath 05/17/25 8:55 AM [facility] [phone] LIZ Horvath 05/17/25 1249 documented in this encounter [facility] 05-17-2025 Instructions Skylar Davidson RN - 05/17/2025 8:30 AM EDT GRECIA CARIN05/17/25: new orders Wound Management Treatment Plan Wound Location(s): left upper chest HOW TO CARE FOR YOUR WOUND The following should be performed Daily and as needed. STEP 1: Cleanse wound with Soap and water, rinse well, and pat dry. STEP 2: Soak wound with Hypochlorous Acid (VASHE). For 5-10 minutes, Then remove and pat dry. STEP 3: apply a cut to fit piece of xeroform gauze to wound bed STEP 4: Cover with a dry 2X2 gauze Secure dressings with paper Tape ACTIVITY: Avoid direct pressure to wound(s) at all times and Reposition at least every 2 hours NUTRITION: High protein diet SKIN CARE: keep wound covered at all times SWELLING CONTROL: Avoid standing for prolonged periods of time. SUPPLIES: xeroform, gauze Current Date - 05/17/25 ITEMS TO FOLLOW UP ON: None Length Width Depth Wound 05/03/25 1 Incision Chest Left;Upper-Wound Length (cm): 0.3 cm Wound 05/03/25 1 Incision Chest Left;Upper-Wound Width (cm): 0.1 cm Wound 05/03/25 1 Incision Chest Left;Upper-Wound Depth (cm): 0.2 cm Wound drainage Type Description moderate Serosanginous serosanguinous documented in this encounter [facility] 05-14-2025 Note Infectious Disease. Telemedicine Note Consent Statement: I discussed risks, benefits, and alternatives of a real-time synchronous audiovisual consultation with the patient (and any accompanying persons) including the risks that the patient's personal health details and medical records will be discussed over real-time, synchronous, interactive video/audio/telecommunication technology, the visit will not be recorded without the express consent of both the provider and the patient, and that there are some limitations compared to [id number] evaluations. We elected to proceed. Division of Infectious Diseases - Progress Note Our team prefers to use [employer] for communication during business hours (8 AM - 5 PM). We make every effort to keep the Treatment Team in [employer] updated. If I do not respond within 30 minutes, please call the answering service. From 5 PM - 8 AM, please call our answering service at [phone] to speak to the on-call physician. Patient name: Juan Jose Austin Patient Today's Date and Time: 05/12/2025, 5:11 PM PCP: Dr. Mayen Might Discharged from [facility] on 04/23/25 Location of provider: [facility] Current location of patient: [place] Impression /Recommendations: PPM pocket infection MSSA Initially presented to [facility] given concern for pacer pocket infection beginning in late December 2024. Outpatient wound cultures grew MSSA Blood cultures negative 04/21 S/p pacer explantation and pocket debridement with placement of dual chamber leadless pacemaker - curing explant pt lost R ventricular capture and received 1 mg of epi and 30-45 seconds of chest compressions 04/21 MARI: negative Completed IV Cefazolin > PO Keflex, EOT 05/05/25 Hx High-grade AV Block/CHB Hx renal cancer S/p nephrectomy Dressing change orders: Wet to dry packing changed daily Labs: N.a Pt doing very well. No acute issues at this time. Continue to monitor for s/s of infection. Follow Up: PRN Subjective Interval History: Juan Jose Austin is a 85 y.o.-year-old male who was initially admitted on 04/19/25. This is a pt with a PMH significant for high-grade AV block/complete AV block status post pacemaker. First presented to PCP for left chest wound near PPM. Wound culture positive for MSSA. Was started on Keflex for 10 days. He then underwent slight revision and cultures grew MSSA. He then was on almost two months of bactrim and Doxycycline. Once the antibiotic was stopped he had recurrent erythema, swelling and tenderness. He presented to [facility] originally for pacer pocket infection. He thinks the infection began in late December 2024. He was assessed by her wire preparation machine tender who thought the pacer wires were starting to erode. It was recommended to have a leadless PPM implanted but could only be done at [facility] or [facility]. He was then transferred. Started of IV Vancomycin. Blood cultures were no growth. 04/21 S/p pacer explantation and pocket debridement with placement of dual chamber leadless pacemaker - curing explant pt lost R ventricular capture and received 1 mg of epi and 30-45 seconds of chest compressions. MARI did not show any signs of vegetations. He was changed to IV Cefazolin and then discharged on PO Keflex to complete therapy. Today, the patient is completing a hospital follow up via telemedicine. He is present with his daughter. The patient reports doing well. Completed Keflex as prescribed without issues. Denies fever, chills, shortness of breath, abdominal pain, nausea, vomiting, diarrhea, wound pus, odor or redness. Continues to see wound care. Dressing changes as above with slight serosanguinous drainage. C/o mid sternal pain s/t CPR. No tenderness around pacemaker incision. Objective Physical Examination : There were no vitals taken for this visit. Temperature Range: General Appearance: Awake, alert, and in no apparent distress Eyes: Sclera anicteric; conjunctivae pink ENT: Oropharynx clear, without erythema, exudate, or thrush. Neck: Supple, without lymphadenopathy. Neurologic: Alert and oriented x 3, gait normal., reflexes normal and symmetric, strength and sensation grossly normal Skin: Left chest incision with dressing in place . Medications: This progress note was completed using a voice electronic scale subassembler system. Every effort was made to ensure accuracy; however, inadvertent computerized electronic scale subassembler errors may be present. Thank you for allowing us to participate in the care of this patient. Please do not hesitate to reach out to me via EpicChat or pager with any questions or concerns. Adelina Rodrigues APRN, ABIOLA Please contact via [facility] 05-08-2025 History of Present illness Narrative Juan Jose Austin Date of visit: 05/08/2025 Date of : 1940 Age: 85 y.o. Patient Active Problem List Diagnosis Essential hypertension HLD (hyperlipidemia) Ureter cancer (CMS-HCC) Pacemaker complications, initial encounter Open wound of left chest wall Surgical wound present 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 Allergies Allergen Reactions Adhesive Rash Severe blisters Desonide Other (See Comments) Current Outpatient Medications Medication Sig Dispense Refill amLODIPine (NORVASC) 10 mg tablet Take 0.5 tablets (5 mg total) by mouth in the morning. aspirin 81 mg chewable tablet Chew 1 tablet (81 mg total) and swallow in the morning. atorvastatin (LIPITOR) 10 mg tablet TAKE ONE TABLET BY MOUTH DAILY 90 tablet 1 balsalazide (COLAZAL) 750 mg capsule Take 1 capsule (750 mg total) by mouth in the morning. Take one three times daily . ferrous sulfate 325 (65 FE) mg tablet Take 1 tablet (325 mg total) by mouth. Take one three times weekly furosemide (LASIX) 20 mg tablet Take 2 tablets (40 mg total) by mouth daily. glucosamine-chondroitin 500-400 mg tablet Take 1 tablet by mouth in the morning. isosorbide mononitrate (IMDUR) 30 mg 24 hr tablet Take 1 tablet (30 mg total) by mouth daily. magnesium oxide (MAGOX) 400 mg tablet Take 1 tablet (400 mg total) by mouth in the morning. 30 tablet 2 metoprolol succinate XL (TOPROL XL) 25 mg 24 hr tablet Take 2 tablets (50 mg total) by mouth in the morning. pantoprazole (PROTONIX) 40 mg EC tablet Take 1 tablet (40 mg total) by mouth in the morning. potassium chloride (KLOR-CON SPRINKLE) 10 MEQ CR capsule Take 1 capsule (10 mEq total) by mouth in the morning. tamsulosin (FLOMAX) 0.4 mg capsule Take 1 capsule (0.4 mg total) by mouth nightly. No current facility-administered medications for this visit. Chief Complaint Patient presents with Follow-up fr-[id number] w/pt status post dual-chamber leadless pacemaker Chest infection due to the pacemaker Atrial Fibrillation Shortness of Breath History of Present Illness Juan Jose Austin is a 85-year-old with history of CKD, renal cancer with nephrectomy, ulcerative colitis, remote history of paroxysmal atrial flutter nonobstructive coronary artery disease, syncope/complete heart block with [employer] dual-chamber pacemaker implanted 2022, lead revision January 2024. He follows with [facility] Cardiology. Patient presented to hospital for drainage from pacemaker site/erosion. He underwent a leadless pacemaker insertion with transvenous pacemaker explant 04/21/2025 which was complicated by brief loss of capture requiring ACLS intervention. Patient states the 1st few days after discharge work quite rough given chest discomfort, however this is improving. He is following with wound care. Left infraclavicular incision is well approximated.. Iodoform dressing in place. Small amount of drainage noted on dressing. Sutures removed without incident. Past Medical History: Diagnosis Date Arrhythmia Cancer (CMS-HCC) Bladder Cataract HLD (hyperlipidemia) 09/04/2017 Hypertension Inflammatory bowel disease Varicella Visual impairment No data recorded No data recorded No data recorded Past Surgical History: Procedure Laterality Date A-V CARDIAC PACEMAKER INSERTION 03/18/2023 [employer] COLONOSCOPY EP Invasive- aveir dc ppm/bsi ppm generator removal N/A 04/21/2025 Performed by Bryan Mccoy MD at [facility] (EP) HERNIA REPAIR NEPHRECTOMY Left jul 03, 2018 History reviewed. No pertinent family history. Social History Socioeconomic History Marital status: Spouse name: Not on file Number of children: Not on file Years of education: Not on file Highest education level: Not on file Occupational History Occupation: retired Employer: [employer] Tobacco Use Smoking status: Former Types: Cigarettes Smokeless tobacco: Never Vaping Use Vaping status: Never Used Substance and Sexual Activity Alcohol use: No Drug use: No Sexual activity: Never Other Topics Concern Caffeine Use Yes Social History Narrative Not on file Social Drivers of Health Financial Resource Strain: Patient Declined (04/22/2024) Received from [facility] Overall Financial Resource Strain (CARDIA) Difficulty of Paying Living Expenses: Patient declined Food Insecurity: No Food Insecurity (05/03/2025) Hunger Screening Food Insecurity - Worry: Never True Food Insecurity - Inability: Never True Transportation Needs: No Transportation Needs (04/27/2025) Received from [facility] PRAPARE - Transportation Lack of Transportation (Medical): No Lack of Transportation (Non-Medical): No Physical Activity: Insufficiently Active (10/27/2024) Received from [facility] Exercise Vital Sign Days of Exercise per Week: 5 days Minutes of Exercise per Session: 10 min Stress: Not on file Social Connections: Not on file Interpersonal Safety: Not At Risk (04/20/2025) Humiliation, Afraid, Rape, and Kick questionnaire Fear of Current or Ex-Partner: No Emotionally Abused: No Physically Abused: No Sexually Abused: No Housing Instability: Low Risk (04/27/2025) Received from [facility] Housing Stability Vital Sign Unable to Pay for Housing in the Last Year: No Number of Times Moved in the Last Year: 0 Homeless in the Last Year: No Review of Systems Review of Systems Constitutional: Positive for malaise/fatigue. Negative for fever and night sweats. Eyes: Negative for blurred vision and double vision. Respiratory: Negative for shortness of breath, sleep disturbances due to breathing and snoring. Hematologic/Lymphatic: Negative for bleeding problem. Bruises/bleeds easily. Skin: Positive for itching. Negative for flushing, poor wound healing and rash. Musculoskeletal: Positive for muscle cramps and muscle weakness. Negative for gout, joint pain and joint swelling. Gastrointestinal: Negative for abdominal pain, bowel incontinence, jaundice, nausea and vomiting. Neurological: Positive for numbness and paresthesias. Negative for dizziness, headaches, light-headedness, loss of balance and weakness. Psychiatric/Behavioral: Negative for substance abuse. CARDIOVASCULAR: Please review HPI. VITAL SIGNS: BP 124/82 Pulse 71 Ht 162.6 cm (5' 4 ) Wt 73.9 kg (163 lb) SpO2 98% BMI 27.98 kg/m No orders of the defined types were placed in this encounter. There are no discontinued medications. IMPRESSIONS/PLAN 1. Open wound of left chest wall, initial encounter 2. Pacemaker complications, initial encounter Wound check Device erosion/ CIED s/p explant of device 04/21/2025 complicated by loss of capture/ACLS intervention Remote history of paroxysmal atrial flutter Syncope/complete heart block [employer] dual-chamber pacemaker implanted 2022, lead revision January 2024 Incision is healing well. Continues to follow with wound care for dressing/iodoform. Denies groin pain, swelling, bruising. Follow-up with [facility] Cardiology as scheduled. Patient was seen when Dr. Verma was present and immediately available in office suite. TODAYS ORDERS No orders of the defined types were placed in this encounter. FOLLOW UP Return if symptoms worsen or fail to improve. PCP: LIZ LAKHANI Referring Physician: LIZ Lakhani [address] [place] [address] LIZ Combs 05/08/25 1052 documented in this encounter [facility] 05-05-2025 Miscellaneous Notes Called patient to remind them to bring their most current copy of their medication list with them to their appt. Patient verbalizes understanding. documented in this encounter [facility] 05-05-2025 Telephone encounter Note Called patient to remind them to bring their most current copy of their medication list with them to their appt. Patient verbalizes understanding. [facility] 05-05-2025 Miscellaneous Notes Patient's daughter called in stating the wound care nurse needs an order for the patient's sutures to be removed from his device extraction site. Spoke with ORBernard over the phone, stated sutures should be removed after 14 days. Left message for the [place] wound clinic to determine if a verbal or written order is needed. Pooja Avalos NP calls back, informed of SUNIL Lucero message. She states that the discussion with the daughter was that our office was attempting to contact her to make a follow up for Juan Jose and that she should call us to make this appointment. She would prefer patient to follow up with us to get suture out. She states that if needed she could take them out but would prefer patient to follow with us to get them out and check surgery site. Will have scheduling call daughter again to attempt to schedule. Wound check appointment scheduled on 05/08/25 with BMD documented in this encounter [facility] 05-05-2025 Telephone encounter Note Patient's daughter called in stating the wound care nurse needs an order for the patient's sutures to be removed from his device extraction site. Spoke with AURORA over the phone, stated sutures should be removed after 14 days. Left message for the [place] wound clinic to determine if a verbal or written order is needed. [facility] 05-05-2025 Telephone encounter Note Pooja Avalos NP calls back, informed of SUNIL Lucero message. She states that the discussion with the daughter was that our office was attempting to contact her to make a follow up for Juan Jose and that she should call us to make this appointment. She would prefer patient to follow up with us to get suture out. She states that if needed she could take them out but would prefer patient to follow with us to get them out and check surgery site. Will have scheduling call daughter again to attempt to schedule. [facility] 05-05-2025 Telephone encounter Note Wound check appointment scheduled on 05/08/25 with BMD [facility] 05-04-2025 History of Present illness Narrative 05/04/25 Contacted patient's daughter Dennis. She reports she was not contacted by Infectious Disease. Discussed that recommendation is for Infectious Disease follow-up to ensure current antibiotic and length of treatment is appropriate for finalized surgical wound cultures. Dennis voiced understanding and reports she will call for follow-up appointment. Phone number [phone] provided. Dennis asked commercial lines underwriter why sutures were not removed at yesterday's wound care visit. Finance Insurance Manager shared with Dennis that patient and his grandson reported patient has upcoming follow-up with surgeon and they were told sutures would be removed by surgeon at that time. Dennis denies patient has follow-up with surgeon in place. It is noted in Epic Encounters that a letter was created and sent out from Dr. Mccoy's office today 05/04/25. The letter indicates that Cardiology has been attempting to reach patient for hospital follow-up. Patient's daughter reports patient sometimes does not answer his phone. Phone number for Dr. Mccoy's office provided to patient's daughter ([phone]). She voices understanding to contact office to schedule follow-up. We discussed that it is my expectation that sutures would be removed at that time. Wound care is ongoing. Patient has follow-up in place for wound care as well. - LIZ Horvath 05/04/25 7:23 PM LIZ Horvath 05/04/251922 documented in this encounter [facility] 05-03-2025 History of Present illness Narrative Images from the original note were not included. Wound Care Progress Note Patient: Juan Jose Austin Date of : 1940 Chief Complaint: New patient evaluation for left chest wound Subjective/HPI: Juan Jose is a 85 y.o. male who presents to [facility] for evaluation of 1 ulcer(s)/wound(s) on the left chest. The wound(s) was(were) first assessed in wound clinic 05/03/25. Current daily wound care includes irrigating with normal saline, packing with 1/4 iodoform packing, and dry dressing. Patient with history of pacemaker pocket infection and erosion. Wound culture from ER 04/19/25 positive for MSSA and rare NSF. Patient underwent EP invasive intervention to remove the device. Patient reports a new device was place in his groin. During hospitalization patient was followed by Infectious Disease and treated with IV vancomycin, discharged on Keflex 500 mg TID x12 days. In reviewing ID note on day of discharge, it appears intraoperative cultures were negative at that time. Patient reports he is taking Keflex as prescribed. He reports he has 2 days left. 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 Patient denies being directed to follow-up with Infectious Disease. He reports he has 2 days of Keflex left. CULTURE RESULTS Staphylococcus aureus Abnormal Staphylococcus aureus Abnormal Variant Staphylococcus aureus Abnormal 2nd Variant Resulting Agency: [facility] Susceptibility Staphylococcus aureus (1) Antibiotic Interpretation ADONAY value(ug/ml) Method Status Clindamycin Resistant 0.25 Not Specified Final Inducible resistance to Clindamycin detected Doxycycline Susceptible <=0.5 Not Specified Final Oxacillin Susceptible <=0.25 Not Specified Final Trimethoprim + Sulfamethoxazole Susceptible <=0.5 Not Specified Final Vancomycin Susceptible 1.0 Not Specified Final Cefazolin Susceptible (deduced) Not Specified Final Staphylococcus aureus (2) Antibiotic Interpretation ADONAY value(ug/ml) Method Status Clindamycin Resistant 0.25 Not Specified Final Inducible resistance to Clindamycin detected Doxycycline Susceptible <=0.5 Not Specified Final Oxacillin Susceptible 0.5 Not Specified Final Trimethoprim + Sulfamethoxazole Susceptible <=0.5 Not Specified Final Vancomycin Susceptible <=0.5 Not Specified Final Cefazolin Susceptible (deduced) Not Specified Final Staphylococcus aureus (3) Antibiotic Interpretation ADONAY value(ug/ml) Method Status Clindamycin Resistant 0.25 Not Specified Final Inducible resistance to Clindamycin detected Doxycycline Susceptible <=0.5 Not Specified Final Oxacillin Susceptible 0.5 Not Specified Final Trimethoprim + Sulfamethoxazole Susceptible <=0.5 Not Specified Final Vancomycin Susceptible 1.0 Not Specified Final Cefazolin Susceptible (deduced) Not Specified Final CULTURE RESULTS Staphylococcus aureus Abnormal Staphylococcus, coagulase negative Abnormal Not S. lugdunensis Staphylococcus aureus Abnormal Variant Isolate screened susceptible to Oxacillin. Resulting Agency: [facility] Susceptibility Staphylococcus aureus (3) Antibiotic Interpretation ADONAY value(ug/ml) Method Status Clindamycin Resistant 0.25 Not Specified Final Inducible resistance to Clindamycin detected Trimethoprim + Sulfamethoxazole Susceptible <=0.5 Not Specified Final Vancomycin Susceptible <=0.5 Not Specified Final Staphylococcus aureus (1) Antibiotic Interpretation ADONAY value(ug/ml) Method Status Clindamycin Resistant 0.25 Not Specified Final Inducible resistance to Clindamycin detected Doxycycline Susceptible <=0.5 Not Specified Final Oxacillin Susceptible <=0.25 Not Specified Final Trimethoprim + Sulfamethoxazole Susceptible <=0.5 Not Specified Final Vancomycin Susceptible 1.0 Not Specified Final Cefazolin Susceptible (deduced) Not Specified Final MARI 04/20/25 noted to be negative for vegetations. Will communicate with [facility] ID to ensure no additional antibiotics warranted and determine if patient should follow-up post hospitalization. Patient reports minimal wound discomfort. He denies fever and chills. Patient accompanied by: Grandson. Nutritional screening: Screen indicates patient is taking increased amounts of protein in the diet. Patient does deny fever, chills, sweats or other symptoms of infection. Diabetic Blood Sugar: Breakfast Glucose Before Breakfast: (pt denies DM) Patient denies history of diabetes. No results found for: HGBA1C Tobacco: former smoker. Contributing Comorbid Conditions: Pacemaker pocket infection/erosion s/p removal, HTN, history of ureter CA. Travel Screening Question Response Have you been in contact with someone who was sick? No / Unsure Do you have any of the following new or worsening symptoms? Shortness of breath Have you traveled internationally or domestically in the last month? No Travel History Travel since 04/03/25 No documented travel since 04/03/25 Patient Active Problem List Diagnosis Essential hypertension HLD (hyperlipidemia) Ureter cancer (CMS-HCC) Pacemaker complications, initial encounter Open wound of left chest wall Surgical wound present Past Medical History: Diagnosis Date Arrhythmia Cancer (CMS-HCC) Bladder Cataract HLD (hyperlipidemia) 09/04/2017 Hypertension Inflammatory bowel disease Varicella Visual impairment Past Surgical History: Procedure Laterality Date A-V CARDIAC PACEMAKER INSERTION 03/18/2023 [employer] COLONOSCOPY EP Invasive- aveir dc ppm/bsi ppm generator removal N/A 04/21/2025 Performed by Bryan Mccoy MD at [facility] (EP) HERNIA REPAIR NEPHRECTOMY Left jul 03, 2018 Current Outpatient Medications Medication Sig Dispense Refill amLODIPine (NORVASC) 10 mg tablet Take 0.5 tablets (5 mg total) by mouth in the morning. aspirin 81 mg chewable tablet Chew 1 tablet (81 mg total) and swallow in the morning. atorvastatin (LIPITOR) 10 mg tablet TAKE ONE TABLET BY MOUTH DAILY 90 tablet 1 balsalazide (COLAZAL) 750 mg capsule Take 1 capsule (750 mg total) by mouth in the morning. Take one three times daily . CEPHalexin (KEFLEX) 500 mg capsule Take 1 capsule (500 mg total) by mouth 3 (three) times a day for 12 days. 36 capsule 0 ferrous sulfate 325 (65 FE) mg tablet Take 1 tablet (325 mg total) by mouth. Take one three times weekly furosemide (LASIX) 20 mg tablet Take 2 tablets (40 mg total) by mouth daily. glucosamine-chondroitin 500-400 mg tablet Take 1 tablet by mouth in the morning. guaiFENesin (MUCINEX) 600 mg tablet extended release 12hr Take 1 tablet (600 mg total) by mouth every 12 (twelve) hours for 14 days. 28 tablet 0 isosorbide mononitrate (IMDUR) 30 mg 24 hr tablet Take 1 tablet (30 mg total) by mouth daily. magnesium oxide (MAGOX) 400 mg tablet Take 1 tablet (400 mg total) by mouth in the morning. 30 tablet 2 metoprolol succinate XL (TOPROL XL) 25 mg 24 hr tablet Take 2 tablets (50 mg total) by mouth in the morning. pantoprazole (PROTONIX) 40 mg EC tablet Take 1 tablet (40 mg total) by mouth in the morning. potassium chloride (KLOR-CON SPRINKLE) 10 MEQ CR capsule Take 1 capsule (10 mEq total) by mouth in the morning. tamsulosin (FLOMAX) 0.4 mg capsule Take 1 capsule (0.4 mg total) by mouth nightly. No current facility-administered medications for this visit. Allergies Allergen Reactions Adhesive Rash Severe blisters Social History Tobacco Use Smoking status: Former Types: Cigarettes Smokeless tobacco: Never Substance Use Topics Alcohol use: No The following portions of the patient's history were reviewed and updated as appropriate: allergies, current medications, past family history, past medical history, past social history, past surgical history, problem list, and medication reconciliation was completed including current medication and post discharge medication. Pain: Pain Scale 0/10: 0 Pain Description: Only with dressing change Relieved by: Rest Wound Focused ROS: Review of Systems Constitutional: Negative for chills and fever. HENT: Negative for congestion, rhinorrhea, sore throat and trouble swallowing. Eyes: Negative for visual disturbance. Respiratory: Positive for shortness of breath (Reports not new and unchanged since hospitalization.). Negative for cough. Cardiovascular: Negative for chest pain (Denies cardiac chest pain.) and leg swelling. Reports chest tenderness related to defibrillation during procedure. Gastrointestinal: Negative for abdominal pain, diarrhea, nausea and vomiting. Reports one loose stool daily x2 days. Denies abdominal pain and blood in stool. Genitourinary: Negative for dysuria, flank pain and hematuria. Musculoskeletal: Negative for gait problem. Skin: Positive for wound. Neurological: Negative for dizziness, light-headedness and numbness. Psychiatric/Behavioral: Negative for self-injury and suicidal ideas. Objective: Vitals: 05/03/25 1501 BP: (!) 167/93 Pulse: 75 Resp: 18 Temp: 37 C (98.6 F) TempSrc: Temporal BMI: Estimated body mass index is 27.21 kg/m as calculated from the following: Height as of 04/20/25: 162.6 cm (5' 4 ). Weight as of 04/22/25: 71.9 kg (158 lb 8.2 oz). Wound Focused Physical Assessment: Physical Exam Vitals reviewed. Constitutional: General: He is not in acute distress. Appearance: He is not ill-appearing, toxic-appearing or diaphoretic. HENT: Head: Normocephalic and atraumatic. Comments: [place] Eyes: General: No scleral icterus. Extraocular Movements: Extraocular movements intact. Cardiovascular: Rate and Rhythm: Normal rate and regular rhythm. Heart sounds: No murmur heard. Comments: Extremities warm with palpable PT pulses. Pulmonary: Effort: Pulmonary effort is normal. No respiratory distress. Breath sounds: No wheezing, rhonchi or rales. Abdominal: General: Bowel sounds are normal. Palpations: Abdomen is soft. Tenderness: There is no abdominal tenderness. Musculoskeletal: Right lower leg: No edema. Left lower leg: No edema. Skin: General: Skin is warm and dry. Capillary Refill: Capillary refill takes less than 2 seconds. Findings: No erythema. Comments: See wound assessment Neurological: General: No focal deficit present. Mental Status: He is alert and oriented to person, place, and time. Psychiatric: Comments: Pleasant, answers questions appropriately Wound Assessment: Wound 05/03/25 1 Incision Chest Left;Upper (Active) Wound Image 05/03/25 151 Site Assessment Red;Bleeding 05/03/258 Julia-wound Assessment Intact;[place] 05/03/25 151 Wound Length (cm) 0.2 cm 05/03/25 1518 Wound Width (cm) 0.5 cm 05/03/25 151 Wound Surface Area (cm^2) 0.08 cm^2 05/03/25 1518 Wound Depth (cm) 1 cm 05/03/25 1518 Wound Volume (cm^3) 0.052 cm^3 05/03/25 1518 Drainage Description Serosanguineous;Yellow;Jimenez 05/03/251517 Drainage Amount Moderate 05/03/251517 Treatments Cleansed with;Soak with;Vashe/Hypochlorous Acid 05/03/251517 Debridement Performed? N 05/03/25 155 Dressing Type Packing Plain;Silicone dressing;Foam;Other (Comment) 05/03/251549 Dressing Changed New 05/03/25 155 Dressing Status Clean;Dry;Intact 05/03/251549 Wound Bed Granulation (%) 100% 05/03/258 Undermining 1 (cm) 2.2 cm 05/03/25 155 Start: Undermining 1 Clock Position 9 o'clock 05/03/251549 End: Undermining 1 Clock Position 10 o'clock 05/03/25 155 Measurable Improvement: New wound encounter. Visible wound bed appears clean. There is 2.2 cm tunnel at 9-10 o'clock. No foul drainage or malodor. No SQ emphysema or fluctuance. No overt s/s of active wound infection or cellulitis. There are 2 what appear to be prolene sutures present. Patient reports he was told these would be removed by surgeon at his upcoming appointment. Dressing: The wound(s) was(were) cleansed, Vashe hypochlorous moist guaze to wound, and a clean dressing as below was placed in wound clinic. Patient Status: Well tolerated by patient. Assessment/Plan/Education: 1. 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 (Primary) 2. Infection of pacemaker pocket, initial encounter 3. Open wound of left chest wall, initial encounter Recommend no showering Cleanse with mild soap and water May continue to irrigate with sterile saline Apply Vashe hypochlorous moist guaze to wound x5 minutes Gently pack wound tunnel/wound with 1/4 Vashe hypochlorous moistened guaze, leave tail for retrieval Cover with dry dressing of comfort Repeat daily Continue Keflex as prescribed until gone Finance Insurance Manager will communicate with Infectious Disease to ensure no further antibiotics needed in the setting of cultures finalizing positive with MSSA and variants x2, and MSSA & variant, CORPORATE HEALTH CONSULTANT and determine in outpatient follow-up needed. Patient also directed to contact Infectious Disease to schedule follow-up if needed. Follow-up with Surgeon as scheduled. Patient and Other: Grandson instructed in wound care to left chest. Short term goal: medical compliance meterman goal: wound closure(maintained closure) Patient verbalizes understanding to go to the Emergency Room with redness, streaking, warmth, swelling, fever, chills, body aches, nausea, vomiting, or other symptoms concerning for worsening infection. Patient verbalizes understanding of treatment regimen and the importance of adherence and when to contact the physician, HH, and/or EMS. Follow up: Return to the wound clinic in 1-2 weeks. Instructed to contact wound clinic, PCP, Urgent Care, or ER should symptoms worsen. Instructed to follow-up with PCP, Urgent Care, or ER with non-wound related health concerns. Total time spent was 30 minutes: Preparing to see the patient (e.g., review of tests) Obtaining and/or reviewing separately obtained history Performing a medically appropriate examination and/or evaluation Counseling and educating the patient/family/caregiver Ordering medications, tests, or procedures Referring and communicating with other health interior plant caretaker (not separately reported) Documenting clinical information in the electronic or other health record LIZ Horvath 05/03/25 3:29 PM [facility] Wound Care [phone] LIZ Horvath 05/03/25 0154 documented in this encounter [employer] 05-03-2025 Instructions Skylar Davidson RN - 05/03/2025 3:00 PM EDT GRECIA CARIN05/03/25: new orders ( please order Vashe wound solution, 1/4 plain packing, silicone border foam dressing) Wound Management Treatment Plan Wound Location(s): left upper chest HOW TO CARE FOR YOUR WOUND The following should be performed Daily and as needed. STEP 1: Cleanse wound with Soap and water, rinse well, and pat dry. Irrigate or rinse wound with Saline (normal). STEP 2: Soak wound with Hypochlorous Acid (VASHE). For 5-10 minutes, Then remove and pat dry. STEP 3: - Gently Pack with 1/4 plain packing moistened with Vashe wound solution. -Be sure to gently pack the wound bed and wound bed undermining. (Undermining noted from 9-10 o'clock. Use the head as 12 o'clock and think of it like a clock) STEP 4: Apply NO TOPICAL AGENT REQUIRED to wound bed. STEP 5: Cover wound with Foam with silicone border, or dry dressing of choice STEP 6: Secure dressings with Tape as needed ACTIVITY: Avoid direct pressure to wound(s) at all times and Reposition at least every 2 hours NUTRITION: High protein diet SKIN CARE: keep wound covered at all times SWELLING CONTROL: Avoid standing for prolonged periods of time. SUPPLIES: Current Date - ITEMS TO FOLLOW UP ON: None Length Width Depth Wound 05/03/25 1 Incision Chest Left;Upper-Wound Length (cm): 0.2 cm Wound 05/03/25 1 Incision Chest Left;Upper-Wound Width (cm): 0.5 cm Wound 05/03/25 1 Incision Chest Left;Upper-Wound Depth (cm): 1 cm Wound drainage Type Description moderate Serosanginous serosanguinous documented in this encounter [facility] 04-22-2025 Telephone encounter Note Pt scheduled for CT tomorrow. Currently hospitalized at [facility] in [place]. New defibrillator placed- site became reddened and erode at insertion site. Pt will call back to reschedule CT and f/u appt. Yu Martinez to scan notes in chart Thank You! Shannan Castelan RN [facility] 04-22-2025 Miscellaneous Notes Pt scheduled for CT tomorrow. Currently hospitalized at [facility] in [place]. New defibrillator placed- site became reddened and erode at insertion site. Pt will call back to reschedule CT and f/u appt. Yu Martinez to scan notes in chart Thank You! Shannan Castelan RN documented in this encounter [facility] 02-23-2025 Note [facility] Consult Note Reason for visit: S/P PPM pocket infection 02/23/25 Patient is here today for a wound check s/p pacemaker pocket. Patient denies chills, body aches, pain or fever. Patient states is taking ATB. Review of Systems Constitutional: Negative. 02/02/25 Patient here for wound check 10 day s/p left side pocket relocation. Denies fever, chills, or any problems since surgery. Patinet state he is still taking both ATB. Wound cleaned and dressed. 01/19/25 Juan Jose has had a device check last done in 2023 which revealed normal device function and no A-fib. Since the last time he saw me in August 2023 he has been followed by cardiology service. There was a concern about discharge from the pocket. This has been ongoing and had been treated with antibiotics by his PCP and then seen by Dr SALDAÑA in January 08, 2025. He states that the buckle of his suspenders has been rubbing against the pacemaker site. Initially he noticed a wart like structure and then started noticing purulent material. He was seen in the ED in September and at that time did not note anything significant but since has been progressively worse. There is no fever but I could express some purulent/caseous material. Denies fever, chills slight tenderness at times per patient. No cardiac complaints. Prior HPI: Juan Jose Austin is a 84 y.o. year old with past medical history [...] denies chest pain. No palpitations. No syncope. (more content not included)... [facility] 02-17-2025 Note [facility] Consult Note Reason for visit: S/P PPM pocket infection 02/17/2025 He has been feeling well. He has had some drainage from the incision, unsure of the color as it would appear on his shirt but he thinks it was dark brown in color. Denies any fevers/chills. He continues to take both antibiotics. 02/02/25 Patient here for wound check 10 day s/p left side pocket relocation. Denies fever, chills, or any problems since surgery. Patinet state he is still taking both ATB. Wound cleaned and dressed. 01/19/25 Juan Jose has had a device check last done in 2023 which revealed normal device function and no A-fib. Since the last time he saw me in August 2023 he has been followed by cardiology service. There was a concern about discharge from the pocket. This has been ongoing and had been treated with antibiotics by his PCP and then seen by Dr SALDAÑA in January 08, 2025. He states that the buckle of his suspenders has been rubbing against the pacemaker site. Initially he noticed a wart like structure and then started noticing purulent material. He was seen in the ED in September and at that time did not note anything significant but since has been progressively worse. There is no fever but I could express some purulent/caseous material. Denies fever, chills slight tenderness at times per patient. No cardiac complaints. Prior HPI: Juan Jose Austin is a 84 y.o. year old with past medical history [...] moderate, relieved by rest. [facility], BMP, BNP, Liver [...] He has bilateral lower extremity edema. He den (more content not included)... [facility] 02-17-2025 Note Patient is here toda y for 3 week found check. Patient denies fever, chills, body aches, pain. Review of Systems Constitutional: Negative. [facility] 02-02-2025 Note [place] [facility] Consult Note Reason for visit: S/P PPM pocket infection 02/02/25 Patient here for wound check 10 day s/p left side pocket relocation. Denies fever, chills, or any problems since surgery. Patinet state he is still taking both ATB. Wound cleaned and dressed. 01/19/25 Juan Jose has had a device check last done in 2023 which revealed normal device function and no A-fib. Since the last time he saw me in August 2023 he has been followed by cardiology service. There was a concern about discharge from the pocket. This has been ongoing and had been treated with antibiotics by his PCP and then seen by Dr SALDAÑA in January 08, 2025. He states that the buckle of his suspenders has been rubbing against the pacemaker site. Initially he noticed a wart like structure and then started noticing purulent material. He was seen in the ED in September and at that time did not note anything significant but since has been progressively worse. There is no fever but I could express some purulent/caseous material. Denies fever, chills slight tenderness at times per patient. No cardiac complaints. Prior HPI: Juan Jose Austin is a 84 y.o. year old with past medical history [...] found. In addition he had elevated BNP. (more content not included)... [facility] 01-21-2025 Note POCKET REVISION PROC EDURE NOTE DATE OF PROCEDURE: 01/21/2025 PERFORMING PHYSICIAN: Dr. Jimbo Bautista CONSENT: Patient LOCATION: EP Lab PROCEDURE PERFORMED: 1. Pocket revision to address skin lesion. INDICATIONS: 1. Pocket discharge. PROCEDURAL SEDATION: Versed and Fentanyl. Moderate sedation was administered by the sedation nurse under my supervision and noted in the CVL log. Intraprocedural face to face sedation time: 95min. Monitoring: Cardiac telemetry, Blood pressure, continuous pulse oxymetry. FLUROSCOPY: 0s EBL: 15cc SPECIMEN REMOVED: None INDICATION: 84year-old lady with a history of PPM placement (subpectoral) on 03/18/23 noted a late skin irritation from use os suspenders which led to some discharge from the site. There was significant pocket swelling and so decision was made to explore and evaluate. PROCEDURAL DETAILS: A procedural pause was performed identifying the patient, the procedure to be performed and the site of implant. The left chest was prepped and draped in the usual sterile fashion. Preoperative antibiotics IV Vancomycin was administered. Patient was placed in supine position and I decided to proceed with opening of the pocket. Local infiltration of 1% Lidocaine was performed, and an incision was created in the left upper chest over the previous incision. Dissection was then performed using cautery and this exposed the area. I saw the lead was quite was very superficial although it was never exposed. The edges of the skin was excised and wound cleaned. The device was noted araceli subpectoral and this was taken and washed with antibiotics. It was placed in Tyrx antibiotic pouch. The wound was cleaned and washed with antibiotics and then closed in layers. Since he lacked sufficient tissue, I made an effort to place the lead deep to avoid erosion. Pocket hemostasis was secured and it was then copiously and vigorously irrigated with antibiotic solution. The leads were wrapped under the device and the device was placed in the pocket and tacked to underlying muscle. The pocket was closed in layers: muscular and subcutaneous layer using 2-0 Vicryl and subcuticular using 3-0 Biosyn absorbable monofilament suture. Glue was applied and dressing was placed on top. Lead parameters were then rechecked through the device as noted below. POST PROCEDURE EXAM: Patient was hemodynamically stable. COMPLICATIONS: None. IMPRESSION: 1. Successful pocket revision. RECOMMENDATIONS: 1. Dressing to be removed after 2 weeks 2. Do not wet the incision for 7 days 3. F/u in device clinic 2 weeks from discharge or sooner for any concerns 4. Follow up in EP clinic in 1 month. 5. Doxycycline and Bactrim x 4 weeks depending on culture Jimbo Bautista MD Cardiac Electrophysiology [facility] 01-21-2025 Note Patient: Juan Jose Austin Procedure Information Date/Time: 01/21/25 1700 Procedure: Pocket relocate Location: [facility] 3 / [facility] (Cath) Providers: Jimbo Bautista MD Clinical information reviewed: Allergies Meds Physical Exam Airway Mallampati: II TM distance: >3 FB Neck ROM: full Cardiovascular Dental Pulmonary Abdominal Anesthesia Plan ASA 3 CSE Anesthetic plan and risks discussed with patient. Use of blood products discussed with patient who. Additional Equipment Requests [facility] 01-19-2025 Note [place] [facility] Consult Note Reason for visit: S/P [facility] hospital follow up 01/19/25 Juan Jose has had a device check last done in 2023 which revealed normal device function and no A-fib. Since the last time he saw me in August 2023 he has been followed by cardiology service. There was a concern about discharge from the pocket. This has been ongoing and had been treated with antibiotics by his PCP and then seen by Dr SALDAÑA in January 08, 2025. He states that the buckle of his suspenders has been rubbing against the pacemaker site. Initially he noticed a wart like structure and then started noticing purulent material. He was seen in the ED in September and at that time did not note anything significant but since has been progressively worse. There is no fever but I could express some purulent/caseous material. Denies fever, chills slight tenderness at times per patient. No cardiac complaints. Prior HPI: Juan Jose Austin is a 84 y.o. year old with past medical history [...] moderate, relieved by rest. [facility] and [facility] CBC, BMP, BNP, Liver [...] remote infarction. Diaphragmatic attenuation artifact is not c (more content not included)... [facility] 01-08-2025 Note [place] [facility] Iain Austin is a 84 y.o. year old male patient being seen for follow up. Patient is due for a follow up in March. Patient requested to come in early due to pacemaker incision site discharge. Patient has been seen by PCP and is taking Sulfamethozazole. Patient states he is doing well. No cardiac complaints at this time. 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) Stage 3 chronic kidney disease (CMS/HCC) Essential hypertension High-grade atrioventricular block Chronic systolic heart failure (CMS/HCC) Atrial flutter (CMS/HCC) Pacemaker complications, initial encounter Congenital hypothyroidism Dyslipidemia Pre-operative cardiovascular examination Family History Problem Relation Name Age of Onset Heart failure Mother Lung cancer Father Social History Tobacco Use Smoking status: Former Current packs/day: 0.00 Types: Cigarettes Quit date: 1979 Years since quittin.2 Smokeless tobacco: Never Vaping Use Vaping status: Never Used Substance Use Topics Alcohol use: Not Currently Drug use: Never HPI Mr Juan Jose Austin is seen [...] wall from base to apex favoring remote (more content not included)... [facility] 10-23-2024 History of Present illness Narrative Images from the original note were not included. NAME: Geovanna Juan Jose CLINIC NO.: [id number] DATE OF SERVICE: October 23, 2024 (George) Some elements in this clinic note that are critical to medical decision making have been carefully reviewed and included from a prior clinic note dated: August 21, 2024 (George) Referring Provider: Dr. Galen Bhatt Additional Clinicians involved in Juan Jose Austin's care: Dr. Yoan Sneed (PCP), Dr. Galen Bhatt, Dr. Jian Rodriguez DIAGNOSIS: Upper urothelial tract carcinoma ASSESSMENT: 84 year old male with right solitary kidney [...] unrevealing. No evidence of pneumonitis on imaging. Recovering from IO induced diarrhea and continues on steroids for now. PLAN: CT CAP scans in 6 months Labs same day RTC 1 week after to review HPI: CASE HISTORY: Reverse Chronological Order 10/16/2024 - CT CAP: Chest: Stable subcentimeter pulmonary nodules. Stable top normal-sized right hilar lymph node. Stable nonspecific sclerotic foci in the left lateral sixth and seventh ribs. A/P: Stable examination when compared to the prior study from 06/29/2024. No definite evidence of metastatic disease in the abdomen or pelvis. 07/10/2024 - EGD/Colonoscopy: with Dr. Jacob Tapia at [facility] Diverticulitis A. Duodenum, biopsy: - Duodenal mucosa with no significant histologic abnormality. B. Random colon, biopsy: - Quiescent colitis. - No evidence of activity, dysplasia or microscopic colitis. 06/29/2024 - CT CAP: Chest: Mild soft tissue prominence at the right hilum, stable. Correlation with continued follow-up examinations is recommended. Improved appearance to previously described right upper lobe groundglass opacities, as above. Additional bilateral subcentimeter pulmonary nodules, unchanged. Small sclerotic foci involving the lateral aspects of the left 6th and 7th ribs, unchanged. A/P: Stable CT examination the abdomen and pelvis as above. 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 Low-attenuation lesion in the posterior spleen which may represent small hemangioma. Evaluation is limited due to lack of IV contrast. Contrast excretion in the collecting system of the right kidney and activation in the urinary bladder from prior contrast administration. Lower thoracic and lumbar spondylosis with vascular calcification seen and no acute abdominal or pelvic pathology. No definite evidence of distended bowel or transition zone to suggest obstruction. 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 Given the imaging appearance and short-term development, these may be infectious/inflammatory in etiology. Therefore, would advise a short-term follow-up chest CT without contrast in 6-8 weeks to reevaluate the opacities. Stable subcentimeter solid pulmonary nodules. No significant thoracic adenopathy. A/P: Stable appearance of geographic area of hypodensity adjacent to the falciform ligament of the liver which may represent focal fatty infiltration. There is also a stable 6 mm hypervascular focus within the subcapsular dome of segment 8 of the liver which may represent a perfusion anomaly or small vascular anomaly. Stable splenic lesions which are nonspecific on cross-sectional imaging but have been present since 2020. The largest lesion is hypervascular and may represent a hemangioma. The stability is reassuring. Diffuse anasarca as well as a small volume of free fluid in the lower abdomen/pelvis. This is new when compared to the prior exam. Mild right hydronephrosis and hydroureter which is similar in appearance to the prior exam. Left nephrectomy. 11/29/2023 - Completed pembrolizumab with C13 11/05/2023 - XR Abdomen: Nonobstructive bowel gas pattern. 11/05/2023 - US RUQ: 2.4cm echogenic focus in the [...] evaluation via MRI. 05/31/2023 - CT CAP: Negative. 03/18/2023 - Permanent pacemaker placed 03/07/2023 - [...] for endoscopic procedure 09/26/2021 - CT urogram Noted with a nodular soft tissue centered at [...] transitional cell carcinoma in situ Updated Visit, October 23, 2024: Juan Jose returns for a follow up. CT of the chest shows stable pulmonary nodules, foci in the left ribs, and a right hilar lymph node. CT A/P shows no definite evidence of metastatic disease. Will proceed with surveillance q 6 months. Shortness of breath is improving. Updated Visit, August 21, 2024: Juan Jose returns with his daughter, Dennis. CT CAP in June was stable overall, no indication to resume Keytruda at this time. Will scan scan again in 2 months. His , Ivone, last month. She was 80 and suffered from dementia. Updated Visit, May 18, 2024: Feels much better and is still weaning his steroids but diarrhea has resolved. Agrees to hold treatment and follow serial scans. Busy outside with his flower beds. Updated Visit, December,: Juan Jose Austin returns [...] no appetite. We discussed his scans from [place], shows no metastasis. Proceed with cycle 13 [...] pacemaker was inserted on on 03/18/2023 at [facility] with Dr. Bautista. His shortness of [...] he is a poor candidate for chemotherapy, lytton based or otherwise. Surgery would yield him [...] PERFORMANCE STATUS: 0 PHYSICAL EXAMINATION: Vitals: BP 157/76 Pulse 63 Temp (Src) 97.7 (Temporal) Resp 18 Wt 169 lb 1.5 oz (76.7kg) SpO2 98% Body surface area is 1.86 meters squared. Exam limited to gross visualization [...] Tape* Other: See Comments Severe blisters MEDICATIONS: clopidogrel (PLAVIX) 75 mg tablet Take 75 mg by mouth once daily. isosorbide mononitrate ER (IMDUR) 30 mg 24 hr tablet Take 30 mg by mouth once daily. lactobacillus acidophilus 100 mg (1 billion cell) cap(s) Take by mouth. cranberry fruit (CRANBERRY) 450 mg tab Take 1 capsule by mouth every morning. omeprazole (PRILOSEC) 20 mg capsule Take 1 capsule by mouth once daily. magnesium oxide 400 mg magnesium tab Take 400 mg by mouth. hyoscyamine (LEVSIN) 0.125 mg tablet Take 125 mcg by mouth. predniSONE (DELTASONE) 20 mg tablet Take 1 tablet by mouth once daily. Prednisone 20 mg for 5 days then 10 mg daily. ondansetron orally disintegrating (ZOFRAN ODT) 4 mg [...] mg iron) tablet Take 325 mg by mouth every other day. pembrolizumab (KEYTRUDA) 25 mg/mL injection Inject intravenously. [...] mg by mouth once daily. hydrALAZINE (APRESOLINE) 25 mg tablet Take 25 mg by mouth three times a day. furosemide (LASIX) 40 mg tablet Take 40 mg by mouth as needed. aspirin, enteric coated (ASPIRIN, ENTERIC COATED) 81 mg EC tablet Take 81 mg by mouth once daily. Glucosamine-Chondroitin 500-400 mg tablet Take 1 tablet by mouth once daily. folic acid/multivit-min/lutein (CENTRUM SILVER ORAL) Take 1 tablet by mouth once daily. atorvastatin (LIPITOR) 80 mg tablet Take 80 mg by mouth once daily. iv contrast [...] Contrast as designated per enteric contrast guidelines LABORATORY VALUES: WBC (k/uL) Date Value 10/16/2024 5.95 RBC (m/uL) Date Value 10/16/2024 4.69 Hemoglobin (g/dL) Date Value 10/16/2024 13.7 Hematocrit (%) Date Value 10/16/2024 39.6 MCV (fL) Date Value 10/16/2024 84.4 MCH (pg) Date Value 10/16/2024 29.2 MCHC (g/dL) Date Value 10/16/2024 34.6 RDW-CV (%) Date Value 10/16/2024 14.1 Platelet Count (k/uL) Date Value 10/16/2024 168 MPV (fL) Date Value 10/16/2024 9.1 Glucose (mg/dL) Date Value 10/16/2024 112 (H) BUN (mg/dL) Date Value 10/16/2024 32 (H) Creatinine (mg/dL) Date Value 10/16/2024 1.71 (H) Sodium (mmol/L) Date Value 10/16/2024 141 Potassium (mmol/L) Date Value 10/16/2024 4.2 Chloride (mmol/L) Date Value 10/16/2024 105 CO2 (mmol/L) Date Value 10/16/2024 26 Protein, Total (g/dL) Date Value 10/16/2024 6.4 Albumin (g/dL) Date Value 10/16/2024 4.3 Calcium, Total (mg/dL) Date Value 10/16/2024 9.2 Alkaline Phosphatase (U/L) Date Value 10/16/2024 84 Bilirubin, Total (mg/dL) Date Value 10/16/2024 0.9 AST (U/L) Date Value 10/16/2024 25 ALT (U/L) Date Value 10/16/2024 19 DIAGNOSIS: (C67.8) Malignant 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) (primary encounter diagnosis) Plan: CT ABD/PEL W IVCON, CT CHEST W IVCON, iv contrast (will be provided with radiology test), enteric contrast (will be provided with radiology test), COMPLETE BLOOD COUNT AND DIFFERENTIAL, COMPREHENSIVE METABOLIC PANEL (C67.9) Malignant neoplasm of urinary bladder, unspecified site (HCC) Plan: CT ABD/PEL W IVCON, CT CHEST W IVCON, iv contrast (will be provided with radiology test), enteric contrast (will be provided with radiology test), COMPLETE BLOOD COUNT AND DIFFERENTIAL, COMPREHENSIVE METABOLIC PANEL (N18.5) CKD (chronic kidney disease), stage V (HCC) Plan: CT ABD/PEL W IVCON, CT CHEST W IVCON, iv contrast (will be provided with radiology test), enteric contrast (will be provided with radiology test), COMPLETE BLOOD COUNT AND DIFFERENTIAL, COMPREHENSIVE METABOLIC PANEL (E07.9) Disorder of thyroid Plan: TSH W/REFLEX FT4 (C67.6) Malignant neoplasm of ureteric orifice (HCC) Plan: CT ABD/PEL W IVCON, CT CHEST W IVCON PAST MEDICAL HISTORY Diagnosis Date Bladder cancer (HCC) Cancer (HCC) Incasive Ureteral Cancer Hematuria Hypertension Nephrolithiasis PAST SURGICAL HISTORY Procedure Laterality Date BACK SURGERY HX CARPAL TUNNEL HERNIA REPAIR HX PAST SURGICAL HISTORY OF Left 06/2018 Nephroureterectomy Social History Tobacco Use Smoking status: Former Current packs/day: 0.00 Average packs/day: 1 pack/day for 30.0 years (30.0 ttl pk-yrs) Types: Cigarettes Start date: 1940 Quit date: 1970 Years since quittin.0 Passive exposure: Past Smokeless tobacco: Never Vaping Use Vaping status: Never Used Substance Use Topics Alcohol use: No Drug use: No FAMILY HISTORY Problem Relation Age of Onset Asthma Mother other (htn) Mother Asthma Sister Anesthesia Problems No Family History I spent a total of 30 minutes on the date of service which included preparing to see the patient, [id number] patient care, completing clinical documentation, obtaining and/or reviewing separately obtained history, performing a medically appropriate examination, counseling and educating the patient/family/caregiver, ordering medications, tests, or procedures, independently interpreting results (not separately reported), communicating results to the patient/family/caregiver, and care coordination (not separately reported). Caesar Vazquez MD, CPE [facility] Provided at: [place], [place] Scribe Attestation: This note was scribed by Jessica Cervantes on October 23, 2024 under the direction and supervision of Dr. Caesar Vazquez. I attest that all of the information documented is correct to the best of my knowledge. Provider Attestation: I, Caesar Vazquez MD, attest that all information documented by the above scribe is correct, and was supervised by me and under my direction. CC: Yoan Sneed MD [address] [place] [id number] documented in this encounter [facility] 10-23-2024 Note HNO ID: [id number] Author: CAESAR VAZQUEZ MD Service: ? Author Type: Physician Type: Progress Notes Filed: 10/23/2024 13:11 Note Text: NAME: GeovannaJuan Jose [facility] NO.: [id number] DATE OF SERVICE: October 23, 2024 (George) Some elements in this clinic note that are critical to medical decision making have been carefully reviewed and included from a prior clinic note dated: August 21, 2024 (George) Referring Provider: Dr. Galen Bhatt Additional Clinicians involved in Juan Jose Austin's care: Dr. Yoan Sneed (PCP), Dr. Galen Bhatt, Dr. Jian Rodriguez DIAGNOSIS: Upper urothelial tract carcinoma ASSESSMENT: 84 year old male with right solitary kidney [...] unrevealing. No evidence of pneumonitis on imaging. Recovering from IO induced diarrhea and continues on steroids for now. PLAN: CT CAP scans in 6 months Labs same day RTC 1 week after to review HPI: CASE HISTORY: Reverse Chronological Order 10/16/2024 - CT CAP: Chest: Stable subcentimeter pulmonary nodules. Stable top normal-sized right hilar lymph node. Stable nonspecific sclerotic foci in the left lateral sixth and seventh ribs. A/P: Stable examination when compared to the prior study from 06/29/2024. No definite evidence of metastatic disease in the abdomen or pelvis. 07/10/2024 - EGD/Colonoscopy: with Dr. Jacob Tapia at [facility] Diverticulitis A. Duodenum, biopsy: - Duodenal mucosa with no significant histologic abnormality. B. Random colon, biopsy: - Quiescent colitis. - No evidence of activity, dysplasia or microscopic colitis. 06/29/2024 - CT CAP: Chest: Mild soft tissue prominence at the right hilum, stable. Correlation with continued follow-up examinations is recommended. Improved appearance to previously described right upper lobe groundglass opacities, as above. Additional bilateral subcentimeter pulmonary nodules, unchanged. Small sclerotic foci involving the lateral aspects of the left 6th and 7th ribs, unchanged. A/P: Stable CT examination the abdomen and pelvis as above. 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 Low-attenuation lesion in the posterior spleen which may represent small hemangioma. Evaluation is limited due to lack of IV contrast. Contrast excretion in the collecting system of the right kidney and activation in the urinary bladder from prior contrast administration. Lower thoracic and lumbar spondylosis with vascular calcification seen and no acute abdominal or pelvic pathology. No definite evidence of distended bowel or transition zone to suggest obstruction. 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 Given the imaging appearance and short-term development, these may be infectious/inflammatory in etiology. Therefore, would advise a short-term follow-up chest CT without contrast in 6-8 weeks to (more content not included)... [facility] 10-23-2024 Instructions Jessica Cervantes - 10/23/2024 9:[address] CAP scans in 6 months Labs same day RTC 1 week after to review documented in this encounter [facility] 10-16-2024 History of Present illness Narrative Radiology Service Progress Note PATIENT NAME: Juan Jose Austin DATE OF SERVICE: October 16, 2024 TIME: 7:39 AM PATIENT IDENTITY VERIFICATION COMPLETED USING TWO (2) IDENTIFIERS: Name and Date of confirmed by patient verbally. FALL SCREENING: Has the patient had 2 falls in the last year or 1 fall with injury or currently using an Ambulatory Assistive Device (Walker, Cane, Wheelchair, Crutches, etc.)? No PATIENT GENDER DATA: Male PATIENT RELEVANT IMPLANT DATA REVIEWED: Not Applicable PATIENT PRESENTS WITH AN IMPLANTABLE OR ATTACHED DROP FORGER HELPER: No RADIOLOGY DEPARTMENT: CT; Exam(s) Completed: Chest Abdomen Pelvis PERIPHERAL IV DATA: Site assessment: Clean,Dry and Intact, Site disposition Discontinued SIGNED BY: RITU Mariscal) October 16, 2024 7:39 AM documented in this encounter [facility] 10-16-2024 Note HNO ID: [id number] Author: MAHESH SMITH RT (R) Service: ? Author Type: Technologist Type: Progress Notes Filed: 10/16/2024 07:39 Note Text: Radiology Service Progress Note PATIENT NAME: Juan Jose Austin DATE OF SERVICE: October 16, 2024 TIME: 7:39 AM PATIENT IDENTITY VERIFICATION COMPLETED USING TWO (2) IDENTIFIERS: Name and Date of confirmed by patient verbally. FALL SCREENING: Has the patient had 2 falls in the last year or 1 fall with injury or currently using an Ambulatory Assistive Device (Walker, Cane, Wheelchair, Crutches, etc.)? No PATIENT GENDER DATA: Male PATIENT RELEVANT IMPLANT DATA REVIEWED: Not Applicable PATIENT PRESENTS WITH AN IMPLANTABLE OR ATTACHED DROP FORGER HELPER: No RADIOLOGY DEPARTMENT: CT; Exam(s) Completed: Chest Abdomen Pelvis PERIPHERAL IV DATA: Site assessment: Clean,Dry and Intact, Site disposition Discontinued SIGNED BY: RT Loida(Rosa) October 16, 2024 7:39 AM [facility] 10-16-2024 Note HNO ID: [id number] Author: LINDA HENDRICKSON RN Service: ? Author Type: Registered Nurse Type: Procedures Filed: 10/16/2024 07:31 Note Text: Radiology Service Progress Note DATE OF SERVICE: October 16, 2024 TIME: 7:30 AM PATIENT WEIGHT: 166LBS PATIENT IDENTITY VERIFICATION COMPLETED USING TWO (2) STANDARD IDENTIFIERS: Name and Date of confirmed by patient verbally. FALL SCREENING: Has the patient had 2 falls in the last year or 1 fall with injury or currently using an Ambulatory Assistive Device (Walker, Cane, Wheelchair, Crutches, etc.)? No PATIENT GENDER DATA: Male ALLERGIES: Reviewed and unchanged CONTRAST ALLERGY: No EXAM: CT -CONTRAST INDUCED NEPHROPATHY RISK FACTORS: Patient age > 60 years CREATININE: Creatinine Date Value Ref Range Status 08/21/2024 1.72 (H) 0.73 - 1.22 mg/dL Final 05/18/2024 1.89 (H) 0.73 - 1.22 mg/dL Final 01/24/2024 1.55 (H) 0.73 - 1.22 mg/dL Final Estimated Glomerular Filtration Rate Date Value Ref Range Status 08/21/2024 38 (L) >=60 mL/min/1.73m? Final Comment: Estimated Glomerular Filtration Rate (eGFR) is calculated using [...] GFR. eGFR- Date Value Ref Range Status 12/04/2021 42 Final P.O.C.T. RESULTS: POC done: Yes, See Lab Tab 2023 TREATMENT: No Hydration needed. IV SITE: Ambulatory: A peripheral IV was started in the Right antecubital site with a Angio cath: 20 gauge. IV SITE APPEARANCE: Clean,Dry and Intact SIGNATURE: Linda Hendrickson RN PATIENT NAME: Juan Jose Austin DATE: October 16, 2024 TIME: 7:30 AM [facility] 10-16-2024 Procedure note Radiology Service Progress Note DATE OF SERVICE: October 16, 2024 TIME: 7:30 AM PATIENT WEIGHT: 166LBS PATIENT IDENTITY VERIFICATION COMPLETED USING TWO (2) STANDARD IDENTIFIERS: Name and Date of confirmed by patient verbally. FALL SCREENING: Has the patient had 2 falls in the last year or 1 fall with injury or currently using an Ambulatory Assistive Device (Walker, Cane, Wheelchair, Crutches, etc.)? No PATIENT GENDER DATA: Male ALLERGIES: Reviewed and unchanged CONTRAST ALLERGY: No EXAM: CT -CONTRAST INDUCED NEPHROPATHY RISK FACTORS: Patient age > 60 years CREATININE: Creatinine Date Value Ref Range Status 08/21/2024 1.72 (H) 0.73 - 1.22 mg/dL Final 05/18/2024 1.89 (H) 0.73 - 1.22 mg/dL Final 01/24/2024 1.55 (H) 0.73 - 1.22 mg/dL Final Estimated Glomerular Filtration Rate Date Value Ref Range Status 08/21/2024 38 (L) >=60 mL/min/1.73m Final Comment: Estimated Glomerular Filtration Rate (eGFR) is calculated using [...] GFR. eGFR- Date Value Ref Range Status 12/04/2021 42 Final P.O.C.T. RESULTS: POC done: Yes, See Lab Tab 2023 TREATMENT: No Hydration needed. IV SITE: Ambulatory: A peripheral IV was started in the Right antecubital site with a Angio cath: 20 gauge. IV SITE APPEARANCE: Clean,Dry and Intact SIGNATURE: Linda Hendrickson RN PATIENT NAME: Juan Jose Austin DATE: October 16, 2024 TIME: 7:30 AM [facility] 10-16-2024 Procedure note Radiology Service Progress Note DATE OF SERVICE: October 16, 2024 TIME: 7:30 AM PATIENT WEIGHT: 166LBS PATIENT IDENTITY VERIFICATION COMPLETED USING TWO (2) STANDARD IDENTIFIERS: Name and Date of confirmed by patient verbally. FALL SCREENING: Has the patient had 2 falls in the last year or 1 fall with injury or currently using an Ambulatory Assistive Device (Walker, Cane, Wheelchair, Crutches, etc.)? No PATIENT GENDER DATA: Male ALLERGIES: Reviewed and unchanged CONTRAST ALLERGY: No EXAM: CT -CONTRAST INDUCED NEPHROPATHY RISK FACTORS: Patient age > 60 years CREATININE: Creatinine Date Value Ref Range Status 08/21/2024 1.72 (H) 0.73 - 1.22 mg/dL Final 05/18/2024 1.89 (H) 0.73 - 1.22 mg/dL Final 01/24/2024 1.55 (H) 0.73 - 1.22 mg/dL Final Estimated Glomerular Filtration Rate Date Value Ref Range Status 08/21/2024 38 (L) >=60 mL/min/1.73m Final Comment: Estimated Glomerular Filtration Rate (eGFR) is calculated using [...] GFR. eGFR- Date Value Ref Range Status 12/04/2021 42 Final P.O.C.T. RESULTS: POC done: Yes, See Lab Tab 2023 TREATMENT: No Hydration needed. IV SITE: Ambulatory: A peripheral IV was started in the Right antecubital site with a Angio cath: 20 gauge. IV SITE APPEARANCE: Clean,Dry and Intact SIGNATURE: Linda Hendrickson RN PATIENT NAME: Juan Jose Austin DATE: October 16, 2024 TIME: 7:30 AM documented in this encounter [facility] 09-16-2024 Note Cardiovascular Medic [facility] SUBJECTIVE Chief Complaint Patient presents with Chest Pain Juan Jose Austin is a 84 y.o. male here for follow-up after his recent ER visit. 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 He stated he felt like something was poking him around his pacemaker but nothing was visible on the outside. He said he had been working on [employer] all day that day. He received a CXR in the ER, no acute findings. No further issues since then. Denies c/o CP, dyspnea, orthopnea, PND, LE edema, dizziness/LH, palpitations, syncope. Patient Active Problem List Diagnosis Hypertensive disorder [...] disease (CMS/HCC) Essential hypertension High-grade atrioventricular block Chronic systolic heart failure (CMS/HCC) Atrial flutter (CMS/HCC) Pacemaker complications, initial encounter Congenital hypothyroidism Dyslipidemia Pre-operative cardiovascular examination Past Medical History: Diagnosis Date Atrial flutter (CMS/HCC) Cancer (CMS/HCC) KIDNEY CANCER AND BLADDER CANCER Chronic constipation Chronic diarrhea Chronic systolic heart failure (CMS/HCC) CKD (chronic kidney disease), stage III (CMS/HCC) Colon polyp Hematuria Hypertension Irregular heart beat PM LBBB (left bundle branch block) Ulcerative colitis (CMS/HCC) Family History Problem Relation Name Age of Onset Heart failure Mother Lung cancer Father Social History Tobacco Use Smoking status: Former Current packs/day: 0.00 Types: Cigarettes Quit date: 1979 Years since quittin.9 Smokeless tobacco: Never Vaping Use Vaping status: Never Used Substance Use Topics Alcohol use: Not Currently Drug use: Never Allergies Allergen Reactions Adhesive Rash and Other Other reaction(s): Severe Blisters Desonide Unknown ROS All systems reviewed and are negative. OBJECTIVE Visit Vitals BP 104/57 Pulse 59 Wt 74.8 kg (165 lb) SpO2 98% BMI 28.32 kg/m??? Smoking Status Former BSA 1.84 m??? Medications: Current Outpatient Medications: amLODIPine (Norvasc) 5 mg tablet, Take 1 tablet (5 mg) by mouth in the morning., Disp: 90 tablet, Rfl: 3 aspirin 81 mg EC tablet, Take 81 mg by mouth at bedtime., Disp: , Rfl: atorvastatin (Lipitor) 80 mg tablet, Take 1 tablet (80 mg) by mouth in the morning., Disp: 90 tablet, Rfl: 3 clopidogrel (Plavix) 75 mg tablet, Take 1 tablet (75 mg) by mouth once daily as directed., Disp: 90 tablet, Rfl: 3 cranberry fruit (cranberry) 450 mg tablet, Take 1 capsule by mouth in the morning., Disp: , Rfl: ferrous sulfate 325 (65 Fe) MG tablet, Take 65 mg by mouth every other day., Disp: , Rfl: furosemide (Lasix) 40 mg tablet, Take 1 tablet (40 mg) by mouth in the morning., Disp: 90 tablet, Rfl: 3 glucosamine/chondroitin weber A/C ([id number] C ORAL), Take 1 capsule by mouth in the morning., Disp: , Rfl: hydrALAZINE (Apresoline) 25 mg tablet, Take 1 tablet (25 mg) by mouth in the morning, at noon, and at bedtime., Disp: 270 tablet, Rfl: 3 hyoscyamine (Levsin) 0.125 mg/5 mL elixir, Take 125 mcg by mouth every 4 (four) hours if needed for bladder spasms., Disp: , Rfl: isosorbide mononitrate ER (Imdur) 30 mg 24 hr tablet, Take 1 tablet (30 mg) by mouth once daily as directed for 360 doses. Do not crush or chew., Disp: 90 tablet, Rfl: 3 levothyroxine (Synthroid) 25 mcg tablet, 1 (one) time each day at the same time., Disp: , Rfl: magnesium oxide (Mag-Ox) 400 mg tablet, Take 400 mg by mouth in the morning., Disp: , Rfl: metoprolol succinate XL (Toprol-XL) 50 mg 24 hr tablet, Take 1 tablet (50 mg) by mouth in the morning. Do not crush or chew., Disp: 90 tablet, Rfl: 3 multivitamin tablet, Take 1 tablet by mouth in the morning., Disp: , Rfl: omeprazole (PriLOSEC) [address] capsule, Take 1 capsule twice a day by oral route for 90 days., Disp: , Rfl: pembrolizumab (Keytruda) 25 mg/mL chemo injection, Infuse into a venous catheter 1 (one) time., Disp: , Rfl: potassium chloride ER (Micro-K) 10 mEq ER capsule, Take 10 mEq by mouth in the morning and at bedtime., Disp: , Rfl: tamsulosin (Flomax) 0.4 mg 24 hr capsule, Take 0.4 mg by mouth in the morning., Disp: , Rfl: amLODIPin (more content not included)... [facility] 09-16-2024 Note Review of Systems All other systems reviewed and are negative. believes pain was a pulled muscle from putting up [employer] lights no more pain [facility] 09-10-2024 Hospital Discharge instructions Leni Santiago MD - 09/10/2024 9:40 PM EST X-ray read is negative for any acute findings for movement of the pacer. 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 NAME: Juan Jose Austin CLINIC NO.: [id number] DATE OF SERVICE: August 21, 2024 () Some elements in this clinic note that are critical to medical decision making have been carefully reviewed and included from a prior clinic note dated: May 18, 2024 ([facility]) Referring Provider: Dr. Galen Bhatt Additional Clinicians involved in Juan Jose Austin's care: Dr. Yoan Sneed (PCP), Dr. Galen Bhatt, Dr. Jian Rodriguez DIAGNOSIS: Upper urothelial tract carcinoma ASSESSMENT: 84 year old male with right solitary kidney [...] unrevealing. No evidence of pneumonitis on imaging. Recovering from IO induced diarrhea and continues on steroids for now. PLAN: CT CAP scans in 8 weeks Labs same day RTC in 9 weeks HPI: CASE HISTORY: Reverse Chronological Order 07/10/2024 - EGD/Colonoscopy: with Dr. Jacob Tapia at [facility] Diverticulitis A. Duodenum, biopsy: - Duodenal mucosa with no significant histologic abnormality. B. Random colon, biopsy: - Quiescent colitis. - No evidence of activity, dysplasia or microscopic colitis. 06/29/2024 - CT CAP: Chest: Mild soft tissue prominence at the right hilum, stable. Correlation with continued follow-up examinations is recommended. Improved appearance to previously described right upper lobe groundglass opacities, as above. Additional bilateral subcentimeter pulmonary nodules, unchanged. Small sclerotic foci involving the lateral aspects of the left 6th and 7th ribs, unchanged. A/P: Stable CT examination the abdomen and pelvis as above. 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 Low-attenuation lesion in the posterior spleen which may represent small hemangioma. Evaluation is limited due to lack of IV contrast. Contrast excretion in the collecting system of the right kidney and activation in the urinary bladder from prior contrast administration. Lower thoracic and lumbar spondylosis with vascular calcification seen and no acute abdominal or pelvic pathology. No definite evidence of distended bowel or transition zone to suggest obstruction. 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 Given the imaging appearance and short-term development, these may be infectious/inflammatory in etiology. Therefore, would advise a short-term follow-up chest CT without contrast in 6-8 weeks to reevaluate the opacities. Stable subcentimeter solid pulmonary nodules. No significant thoracic adenopathy. A/P: Stable appearance of geographic area of hypodensity adjacent to the falciform ligament of the liver which may represent focal fatty infiltration. There is also a stable 6 mm hypervascular focus within the subcapsular dome of segment 8 of the liver which may represent a perfusion anomaly or small vascular anomaly. Stable splenic lesions which are nonspecific on cross-sectional imaging but have been present since 2020. The largest lesion is hypervascular and may represent a hemangioma. The stability is reassuring. Diffuse anasarca as well as a small volume of free fluid in the lower abdomen/pelvis. This is new when compared to the prior exam. Mild right hydronephrosis and hydroureter which is similar in appearance to the prior exam. Left nephrectomy. 11/29/2023 - Completed pembrolizumab with C13 11/05/2023 - XR Abdomen: Nonobstructive bowel gas pattern. 11/05/2023 - US RUQ: 2.4cm echogenic focus in the [...] evaluation via MRI. 05/31/2023 - CT CAP: Negative. 03/18/2023 - Permanent pacemaker placed 03/07/2023 - [...] for endoscopic procedure 09/26/2021 - CT urogram Noted with a nodular soft tissue centered at [...] cell carcinoma in situ Updated Visit, August 21, 2024: Juan Jose returns with his daughter, Dennis. CT CAP in June was stable overall, no indication to resume Keytruda at this time. Will scan scan again in 2 months. His , Ivone, last month. She was 80 and suffered from dementia. Updated Visit, May 18, 2024: Feels much better and is still weaning his steroids but diarrhea has resolved. Agrees to hold treatment and follow serial scans. Busy outside with his flower beds. Updated Visit, December,: Juan Jose Austin returns [...] pacemaker was inserted on on 03/18/2023 at [facility] with Dr. Bautista. His shortness of [...] he is a poor candidate for chemotherapy, lytton based or otherwise. Surgery would yield him [...] PERFORMANCE STATUS: 0 PHYSICAL EXAMINATION: Vitals: BP 149/75 Pulse 64 Temp (Src) 97.2 (Temporal) Resp 16 Ht 5' 3.78 (1.62m) Wt 162 lb 11.2 oz (73.8kg) SpO2 98% BMI 28.12 kg/(m^2). Body surface area is 1.82 meters squared. Exam limited to gross visualization [...] Tape* Other: See Comments Severe blisters MEDICATIONS: clopidogrel (PLAVIX) 75 mg tablet Take 75 mg by mouth once daily. isosorbide mononitrate ER (IMDUR) 30 mg 24 hr tablet Take 30 mg by mouth once daily. lactobacillus acidophilus 100 mg (1 billion cell) cap(s) Take by mouth. cranberry fruit (CRANBERRY) 450 mg tab Take 1 capsule by mouth every morning. omeprazole (PRILOSEC) 20 mg capsule Take 1 capsule by mouth once daily. magnesium oxide 400 mg magnesium tab Take 400 mg by mouth. hyoscyamine (LEVSIN) 0.125 mg tablet Take 125 mcg by mouth. predniSONE (DELTASONE) 20 mg tablet Take 1 tablet by mouth once daily. Prednisone 20 mg for 5 days then 10 mg daily. ondansetron orally disintegrating (ZOFRAN ODT) 4 mg [...] mg iron) tablet Take 325 mg by mouth every other day. pembrolizumab (KEYTRUDA) 25 mg/mL injection Inject intravenously. [...] mg by mouth once daily. hydrALAZINE (APRESOLINE) 25 mg tablet Take 25 mg by mouth three times a day. furosemide (LASIX) 40 mg tablet Take 40 mg by mouth as needed. aspirin, enteric coated (ASPIRIN, ENTERIC COATED) 81 mg EC tablet Take 81 mg by mouth once daily. Glucosamine-Chondroitin 500-400 mg tablet Take 1 tablet by mouth once daily. folic acid/multivit-min/lutein (CENTRUM SILVER ORAL) Take 1 tablet by mouth once daily. atorvastatin (LIPITOR) 80 mg tablet Take 80 mg by mouth once daily. iv contrast [...] Contrast as designated per enteric contrast guidelines iv contrast (will be provided with radiology [...] guidelines link. (Patient not taking: Reported on 08/21/2024) enteric contrast (will be provided with radiology test) For CT CHESTABD/PEL W IVCON Routine order Administer, As Directed One Time Only, via Oral, Rectal, both Oral and Rectal, Enteric Tube, Stoma or Indwelling Catheter, Enteric Contrast as designated per enteric contrast guidelines (Patient not taking: Reported on 08/21/2024) LABORATORY VALUES: WBC (k/uL) Date Value 08/21/2024 6.01 RBC (m/uL) Date Value 08/21/2024 4.72 Hemoglobin (g/dL) Date Value 08/21/2024 13.6 Hematocrit (%) Date Value 08/21/2024 39.4 MCV (fL) Date Value 08/21/2024 83.5 MCH (pg) Date Value 08/21/2024 28.8 MCHC (g/dL) Date Value 08/21/2024 34.5 RDW-CV (%) Date Value 08/21/2024 14.5 Platelet Count (k/uL) Date Value 08/21/2024 166 MPV (fL) Date Value 08/21/2024 9.1 Glucose (mg/dL) Date Value 08/21/2024 102 (H) BUN (mg/dL) Date Value 08/21/2024 34 (H) Creatinine (mg/dL) Date Value 08/21/2024 1.72 (H) Sodium (mmol/L) Date Value 08/21/2024 141 Potassium (mmol/L) Date Value 08/21/2024 4.6 Chloride (mmol/L) Date Value 08/21/2024 106 CO2 (mmol/L) Date Value 08/21/2024 26 Protein, Total (g/dL) Date Value 08/21/2024 6.1 (L) Albumin (g/dL) Date Value 08/21/2024 4.1 Calcium, Total (mg/dL) Date Value 08/21/2024 8.9 Alkaline Phosphatase (U/L) Date Value 08/21/2024 84 Bilirubin, Total (mg/dL) Date Value 08/21/2024 0.6 AST (U/L) Date Value 08/21/2024 28 ALT (U/L) Date Value 08/21/2024 20 DIAGNOSIS: (C67.8) Malignant 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) (primary encounter diagnosis) Plan: CT ABD/PEL W IVCON, CT CHEST W IVCON, iv contrast (will be provided with radiology test), enteric contrast (will be provided with radiology test), COMPLETE BLOOD COUNT AND DIFFERENTIAL, COMPREHENSIVE METABOLIC PANEL (N18.5) CKD (chronic kidney disease), stage V (HCC) (C67.9) Malignant neoplasm of urinary bladder, unspecified site (HCC) PAST MEDICAL HISTORY Diagnosis Date Bladder cancer (HCC) Cancer (HCC) Incasive Ureteral Cancer Hematuria Hypertension Nephrolithiasis PAST SURGICAL HISTORY Procedure Laterality Date BACK SURGERY HX CARPAL TUNNEL HERNIA REPAIR HX PAST SURGICAL HISTORY OF Left 06/2018 Nephroureterectomy Social History Tobacco Use Smoking status: Former Current packs/day: 0.00 Average packs/day: 1 pack/day for 30.0 years (30.0 ttl pk-yrs) Types: Cigarettes Start date: 1940 Quit date: 1970 Years since quittin.8 Passive exposure: Past Smokeless tobacco: Never Vaping Use Vaping status: Never Used Substance Use Topics Alcohol use: No Drug use: No FAMILY HISTORY Problem Relation Age of Onset Asthma Mother other (htn) Mother Asthma Sister Anesthesia Problems No Family History I spent a total of 30 minutes on the date of service which included preparing to see the patient, [id number] patient care, completing clinical documentation, obtaining and/or reviewing separately obtained history, performing a medically appropriate examination, counseling and educating the patient/family/caregiver, ordering medications, tests, or procedures, independently interpreting results (not separately reported), communicating results to the patient/family/caregiver, and care coordination (not separately reported). Caesar Vazquez MD, CPE [facility]ology [facility] On[facility] Services Provided at: [place], [place] Scribe Attestation: This note was scribed by Jessica Cervantes on August 21, 2024 under the direction and supervision of Dr. Caesar Vazquez. I attest that all of the information documented is correct to the best of my knowledge. Provider Attestation: I, Caesar Vazquez MD, attest that all information documented by the above scribe is correct, and was supervised by me and under my direction. CC: Yoan Sneed MD [facility] [facility] [id number] documented in this encounter [facility] 08-21-2024 Note HNO ID: [id number] Author: CAESAR VAZQUEZ MD Service: ? Author Type: Physician Type: Progress Notes Filed: 08/21/2024 11:17 Note Text: NAME: Juan Jose Austin [facility] NO.: [id number] DATE OF SERVICE: August 21, 2024 ([place]) Some elements in this clinic note that are critical to medical decision making have been carefully reviewed and included from a prior clinic note dated: May 18, 2024 ([facility]) Referring Provider: Dr. Galen Bhatt Additional Clinicians involved in Juan Jose Austin's care: Dr. Yoan Sneed (PCP), Dr. Galen Bhatt, Dr. Jian Rodriguez DIAGNOSIS: Upper urothelial tract carcinoma ASSESSMENT: 84 year old male with right solitary kidney [...] unrevealing. No evidence of pneumonitis on imaging. Recovering from IO induced diarrhea and continues on steroids for now. PLAN: CT CAP scans in 8 weeks Labs same day RTC in 9 weeks HPI: CASE HISTORY: Reverse Chronological Order 07/10/2024 - EGD/Colonoscopy: with Dr. Jacob Tapia at [facility] Diverticulitis A. Duodenum, biopsy: - Duodenal mucosa with no significant histologic abnormality. B. Random colon, biopsy: - Quiescent colitis. - No evidence of activity, dysplasia or microscopic colitis. 06/29/2024 - CT CAP: Chest: Mild soft tissue prominence at the right hilum, stable. Correlation with continued follow-up examinations is recommended. Improved appearance to previously described right upper lobe groundglass opacities, as above. Additional bilateral subcentimeter pulmonary nodules, unchanged. Small sclerotic foci involving the lateral aspects of the left 6th and 7th ribs, unchanged. A/P: Stable CT examination the abdomen and pelvis as above. 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 Low-attenuation lesion in the posterior spleen which may represent small hemangioma. Evaluation is limited due to lack of IV contrast. Contrast excretion in the collecting system of the right kidney and activation in the urinary bladder from prior contrast administration. Lower thoracic and lumbar spondylosis with vascular calcification seen and no acute abdominal or pelvic pathology. No definite evidence of distended bowel or transition zone to suggest obstruction. 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 Given the imaging appearance and short-term development, these may be infectious/inflammatory in etiology. Therefore, would advise a short-term follow-up chest CT without contrast in 6-8 weeks to reevaluate the opacities. Stable subcentimeter solid pulmonary nodules. No significant thoracic adenopathy. A/P: Stable appearance of geographic area of hypodensity adjacent to the falciform ligament of the liver which may represent focal fatty infiltration. There is also a stable 6 mm hypervascular focus within the subcapsular dome of segment 8 of (more content not included)... [facility] 08-21-2024 Instructions Jessica Cervantes - 08/21/2024 9:[address] CAP scans in 8 weeks Labs same day RTC in 9 weeks documented in this encounter [facility] 07-10-2024 Note Patient: Juan Jose Austin Procedure Summary Date: 07/10/24 Room / Location: [facility] Anesthesia Start: 1321 Anesthesia Stop: 1413 Procedures: EGD SCREEN COLONOSCOPY Diagnosis: Ulcerative colitis with rectal bleeding, unspecified location (CMS/HCC) Gastroesophageal reflux disease, unspecified whether esophagitis present Screen for colon cancer Scheduled Providers: José Winslow MD; MARINA Rodrigues; Jacob Tapia MD Responsible Provider: José Winslow MD Anesthesia Type: MAC ASA Status: 3 Anesthesia Type: MAC Vitals Value Taken Time BP 106/55 07/10/24 1415 Temp 36 ???C (96.8 ???F) 07/10/24 1410 Pulse 60 07/10/24 1415 Resp 18 07/10/24 1415 SpO2 96 % 07/10/24 1415 Anesthesia Post Evaluation Patient location during evaluation: PACU Patient participation: complete - patient participated Level of consciousness: awake Pain score: 1 Pain management: adequate Airway patency: patent Cardiovascular status: acceptable Respiratory status: acceptable Patient is hemodynamically stable and is able to be discharged from PACU per anesthesia protocol. No notable events documented. [facility] 07-10-2024 Note Patient: Juan Jose Austin Procedure Summary Date: 07/10/24 Room / Location: [facility]oscopy Anesthesia Start: 1321 Anesthesia Stop: Procedures: EGD SCREEN COLONOSCOPY Diagnosis: Ulcerative colitis with rectal bleeding, unspecified location (CMS/HCC) Gastroesophageal reflux disease, unspecified whether esophagitis present Screen for colon cancer Scheduled Providers: José Winslow MD; MARINA Rodrigues; Jacob Tapia MD Responsible Provider: José Winslow MD Anesthesia Type: MAC ASA Status: 3 Anesthesia Post Transport Note Transport to: [place] PACU O2 Route: room air Patient Monitor: direct observation Transport: uneventful Patient condition is: stable [facility] 07-10-2024 Note Patient: Juan Jose Austin Procedure Information Date/Time: 07/10/24 1415 Scheduled providers: José Winslow MD; MARINA Rodrigues; Jacob Tapia MD Procedures: EGD SCREEN COLONOSCOPY Location: [facility] Endoscopy Relevant Problems Anesthesia (within normal limits) Cardio Atrial flutter episodic, recent heart cath 60-70% occlusion of mid LAD (+) Atrial flutter (CMS/HCC) (+) Essential hypertension (+) High-grade atrioventricular block (+) Hypertensive disorder Endo (+) Congenital hypothyroidism GI (+) Gastro-esophageal reflux disease without esophagitis /Renal Recent Cr 1.73 (+) CELSO (acute kidney injury) (CMS/HCC) (+) CKD (chronic kidney disease) (+) Hydronephrosis (+) 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 (CMS/HCC) (+) Stage 3 chronic kidney disease (CMS/HCC) Pulmonary (within normal limits) Clinical information reviewed: Allergies Meds Physical Exam Airway Mallampati: II TM distance: >3 FB Neck ROM: full Cardiovascular - normal exam Dental (+) upper dentures, lower dentures Pulmonary - normal exam Abdominal Anesthesia Plan ASA 3 MAC The patient is not a current smoker. Patient was not previously instructed to abstain from smoking on day of procedure. Patient did not smoke on day of procedure. intravenous induction Anesthetic plan and risks discussed with patient. Plan discussed with MARINA. Additional Equipment Requests [facility] 06-29-2024 History of Present illness Narrative Radiology Service Progress Note DATE OF SERVICE: June 29, 2024 TIME: 8:03 AM PATIENT WEIGHT: 158LBS PATIENT IDENTITY VERIFICATION COMPLETED USING TWO (2) STANDARD IDENTIFIERS: Name and Date of confirmed by patient verbally. FALL SCREENING: Has the patient had 2 falls in the last year or 1 fall with injury or currently using an Ambulatory Assistive Device (Walker, Cane, Wheelchair, Crutches, etc.)? No PATIENT GENDER DATA: Male ALLERGIES: Reviewed and unchanged CONTRAST ALLERGY: No EXAM: CT -CONTRAST INDUCED NEPHROPATHY RISK FACTORS: Patient age > 60 years and Known Chronic Kidney Disease (CKD) CREATININE: Creatinine Date Value Ref Range Status 05/18/2024 1.89 (H) 0.73 - 1.22 mg/dL Final 01/24/2024 1.55 (H) 0.73 - 1.22 mg/dL Final 12/20/2023 1.75 (H) 0.73 - 1.22 mg/dL Final Estimated Glomerular Filtration Rate Date Value Ref Range Status 05/18/2024 34 (L) >=60 mL/min/1.73m Final Comment: Estimated Glomerular Filtration Rate (eGFR) is calculated using [...] GFR. eGFR- Date Value Ref Range Status 12/04/2021 42 Final P.O.C.T. RESULTS: POC done: Yes, See Lab Tab 05/18/24TREATMENT: No Hydration needed. IV SITE: Ambulatory: A peripheral IV was started in the Right forearm with a Angio cath: 22 gauge. IV SITE APPEARANCE: Clean,Dry and Intact SIGNATURE: Linda Hendrickson RN PATIENT NAME: Juan Jose Austin DATE: June 29, 2024 TIME: 8:03 AM Radiology Service Progress Note PATIENT NAME: Juan Jose Austin DATE OF SERVICE: June 29, 2024 TIME: 8:57 AM PATIENT IDENTITY VERIFICATION COMPLETED USING TWO (2) IDENTIFIERS: Name and Date of confirmed by patient verbally. FALL SCREENING: Has the patient had 2 falls in the last year or 1 fall with injury or currently using an Ambulatory Assistive Device (Walker, Cane, Wheelchair, Crutches, etc.)? No PATIENT GENDER DATA: Male PATIENT RELEVANT IMPLANT DATA REVIEWED: Not Applicable PATIENT PRESENTS WITH AN IMPLANTABLE OR ATTACHED DROP FORGER HELPER: No RADIOLOGY DEPARTMENT: CT; Exam(s) Completed: Chest Abdomen Pelvis PERIPHERAL IV DATA: Site assessment: Clean,Dry and Intact, Site disposition Discontinued SIGNED BY: RT Loida(R) June 29, 2024 8:57 AM documented in this encounter [facility] 06-29-2024 Note HNO ID: [id number] Author: LINDA HENDRICKSON RN Service: ? Author Type: Registered Nurse Type: Progress Notes Filed: 06/29/2024 08:04 Note Text: Radiology Service Progress Note DATE OF SERVICE: June 29, 2024 TIME: 8:03 AM PATIENT WEIGHT: 158LBS PATIENT IDENTITY VERIFICATION COMPLETED USING TWO (2) STANDARD IDENTIFIERS: Name and Date of confirmed by patient verbally. FALL SCREENING: Has the patient had 2 falls in the last year or 1 fall with injury or currently using an Ambulatory Assistive Device (Walker, Cane, Wheelchair, Crutches, etc.)? No PATIENT GENDER DATA: Male ALLERGIES: Reviewed and unchanged CONTRAST ALLERGY: No EXAM: CT -CONTRAST INDUCED NEPHROPATHY RISK FACTORS: Patient age > 60 years and Known Chronic Kidney Disease (CKD) CREATININE: Creatinine Date Value Ref Range Status 05/18/2024 1.89 (H) 0.73 - 1.22 mg/dL Final 01/24/2024 1.55 (H) 0.73 - 1.22 mg/dL Final 12/20/2023 1.75 (H) 0.73 - 1.22 mg/dL Final Estimated Glomerular Filtration Rate Date Value Ref Range Status 05/18/2024 34 (L) >=60 mL/min/1.73m? Final Comment: Estimated Glomerular Filtration Rate (eGFR) is calculated using [...] GFR. eGFR- Date Value Ref Range Status 12/04/2021 42 Final P.O.C.T. RESULTS: POC done: Yes, See Lab Tab 05/18/24TREATMENT: No Hydration needed. IV SITE: Ambulatory: A peripheral IV was started in the Right forearm with a Angio cath: 22 gauge. IV SITE APPEARANCE: Clean,Dry and Intact SIGNATURE: Linda Hendrickson RN PATIENT NAME: Juan Jose Austin DATE: June 29, 2024 TIME: 8:03 AM [facility] 06-29-2024 Note HNO ID: [id number] Author: MAHESH SMITH RT(R) Service: ? Author Type: Technologist Type: Progress Notes Filed: 06/29/2024 08:57 Note Text: Radiology Service Progress Note PATIENT NAME: Juan Jose Austin DATE OF SERVICE: June 29, 2024 TIME: 8:57 AM PATIENT IDENTITY VERIFICATION COMPLETED USING TWO (2) IDENTIFIERS: Name and Date of confirmed by patient verbally. FALL SCREENING: Has the patient had 2 falls in the last year or 1 fall with injury or currently using an Ambulatory Assistive Device (Walker, Cane, Wheelchair, Crutches, etc.)? No PATIENT GENDER DATA: Male PATIENT RELEVANT IMPLANT DATA REVIEWED: Not Applicable PATIENT PRESENTS WITH AN IMPLANTABLE OR ATTACHED DROP FORGER HELPER: No RADIOLOGY DEPARTMENT: CT; Exam(s) Completed: Chest Abdomen Pelvis PERIPHERAL IV DATA: Site assessment: Clean,Dry and Intact, Site disposition Discontinued SIGNED BY: RT Loida(R) June 29, 2024 8:57 AM [facility] 05-18-2024 Instructions Caesar Vazquez MD - 05/18/2024 1:20 PM EDT Hold pembrolizumab due to colitis Continue weaning steroids CT CAP scans in 6 weeks with labs RTC in 7 weeks documented in this encounter [facility] 05-18-2024 History of Present illness Narrative Images from the original note were not included. NAME: Juan Jose Austin CLINIC NO.: [id number] DATE OF SERVICE: May 18, 2024 ([place]) Some elements in this clinic note that are critical to medical decision making have been carefully reviewed and included from a prior clinic note dated: December 20, 2023 ([place]) Referring Provider: Dr. Galen Bhatt Additional Clinicians involved in Juan Jose Austin's care: Dr. Yoan Sneed (PCP), Dr. Galen Bhatt, Dr. Jian Rodriguez DIAGNOSIS: Upper urothelial tract carcinoma ASSESSMENT: 84 year old male with right solitary kidney [...] unrevealing. No evidence of pneumonitis on imaging. Recovering from IO induced diarrhea and continues on steroids for now. PLAN: Hold pembrolizumab due to colitis Continue weaning steroids CT CAP scans in 6 weeks with labs RTC in 7 weeks HPI: CASE HISTORY: Reverse Chronological Order 03/23/2024 - CT A/P: Evidence of prior left nephrectomy and adrenalectomy with metallic clips in the left subphrenic region with adjacent fibrosis and scarring from prior surgery. Low-attenuation lesion in the posterior spleen which may represent small hemangioma. Evaluation is limited due to lack of IV contrast. Contrast excretion in the collecting system of the right kidney and activation in the urinary bladder from prior contrast administration. Lower thoracic and lumbar spondylosis with vascular calcification seen and no acute abdominal or pelvic pathology. No definite evidence of distended bowel or transition zone to suggest obstruction. 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 Given the imaging appearance and short-term development, these may be infectious/inflammatory in etiology. Therefore, would advise a short-term follow-up chest CT without contrast in 6-8 weeks to reevaluate the opacities. Stable subcentimeter solid pulmonary nodules. No significant thoracic adenopathy. A/P: Stable appearance of geographic area of hypodensity adjacent to the falciform ligament of the liver which may represent focal fatty infiltration. There is also a stable 6 mm hypervascular focus within the subcapsular dome of segment 8 of the liver which may represent a perfusion anomaly or small vascular anomaly. Stable splenic lesions which are nonspecific on cross-sectional imaging but have been present since 2020. The largest lesion is hypervascular and may represent a hemangioma. The stability is reassuring. Diffuse anasarca as well as a small volume of free fluid in the lower abdomen/pelvis. This is new when compared to the prior exam. Mild right hydronephrosis and hydroureter which is similar in appearance to the prior exam. Left nephrectomy. 12/20/2023 - C14 pembrolizumab 11/05/2023 - XR Abdomen: Nonobstructive bowel gas pattern. 11/05/2023 - US RUQ: 2.4cm echogenic focus in the [...] evaluation via MRI. 05/31/2023 - CT CAP: Negative. 03/18/2023 - Permanent pacemaker placed 03/07/2023 - [...] for endoscopic procedure 09/26/2021 - CT urogram Noted with a nodular soft tissue centered at [...] transitional cell carcinoma in situ Updated Visit, May 18, 2024: Feels much better and is still weaning his steroids but diarrhea has resolved. Agrees to hold treatment and follow serial scans. Busy outside with his flower beds. Updated Visit, December,: Juan Jose Austin returns [...] pacemaker was inserted on on 03/18/2023 at [facility] with Dr. Bautista. His shortness of [...] he is a poor candidate for chemotherapy, lytton based or otherwise. Surgery would yield him [...] PERFORMANCE STATUS: 0 PHYSICAL EXAMINATION: Vitals: BP 121/63 Pulse 66 Temp (Src) 97.1 (Temporal) Resp 16 Ht 5' 3.78 [verifed by 2 no shoes[ (1.62m) Wt 151 lb 7.3 oz (68.7kg) SpO2 99% BMI 26.18 kg/(m^2). Body surface area is 1.76 meters squared. Exam limited to gross visualization [...] Tape* Other: See Comments Severe blisters MEDICATIONS: clopidogrel (PLAVIX) 75 mg tablet Take 75 mg by mouth once daily. isosorbide mononitrate ER (IMDUR) 30 mg 24 hr tablet Take 30 mg by mouth once daily. lactobacillus acidophilus 100 mg (1 billion cell) cap(s) Take by mouth. cranberry fruit (CRANBERRY) 450 mg tab Take 1 capsule by mouth every morning. omeprazole (PRILOSEC) 20 mg capsule Take 1 capsule by mouth once daily. magnesium oxide 400 mg magnesium tab Take 400 mg by mouth. hyoscyamine (LEVSIN) 0.125 mg tablet Take 125 mcg by mouth. predniSONE (DELTASONE) 20 mg tablet Take 1 tablet by mouth once daily. Prednisone 20 mg for 5 days then 10 mg daily. ondansetron orally disintegrating (ZOFRAN ODT) [address]ating tablet pantoprazole DR (PROTONIX) 40 mg tablet levothyroxine (SYNTHROID) 25 mcg tablet 1 tablet in the morning on an empty stomach Orally Once a day for 30 days tamsulosin (FLOMAX) 0.4 mg Take 1 capsule by mouth once daily. ferrous sulfate 325 mg (65 mg iron) tablet Take 325 mg by mouth every other day. pembrolizumab (KEYTRUDA) 25 mg/mL injection Inject intravenously. [...] mg by mouth once daily. hydrALAZINE (APRESOLINE) 25 mg tablet Take 25 mg by mouth three times a day. furosemide (LASIX) 40 mg tablet Take 40 mg by mouth as needed. aspirin, enteric coated (ASPIRIN, ENTERIC COATED) 81 mg EC tablet Take 81 mg by mouth once daily. Glucosamine-Chondroitin 500-400 mg tablet Take 1 tablet by mouth once daily. folic acid/multivit-min/lutein (CENTRUM SILVER ORAL) Take 1 tablet by mouth once daily. atorvastatin (LIPITOR) 80 mg tablet Take 80 mg by mouth once daily. iv contrast [...] Contrast as designated per enteric contrast guidelines isosorbide dinitrate (ISORDIL) 20 mg tablet Take 20 mg by mouth three times a day. LABORATORY VALUES: WBC (k/uL) Date Value 01/24/2024 7.28 RBC (m/uL) Date Value 01/24/2024 4.44 Hemoglobin (g/dL) Date Value 01/24/2024 12.4 (L) Hematocrit (%) Date Value 01/24/2024 38.0 (L) MCV (fL) Date Value 01/24/2024 85.6 MCH (pg) Date Value 01/24/2024 27.9 MCHC (g/dL) Date Value 01/24/2024 32.6 RDW-CV (%) Date Value 01/24/2024 17.1 (H) Platelet Count (k/uL) Date Value 01/24/2024 206 MPV (fL) Date Value 01/24/2024 9.0 Glucose (mg/dL) Date Value 05/18/2024 111 (H) BUN (mg/dL) Date Value 05/18/2024 43 (H) Creatinine (mg/dL) Date Value 05/18/2024 1.89 (H) Sodium (mmol/L) Date Value 05/18/2024 146 (H) Potassium (mmol/L) Date Value 05/18/2024 4.5 Chloride (mmol/L) Date Value 05/18/2024 110 (H) CO2 (mmol/L) Date Value 05/18/2024 27 Protein, Total (g/dL) Date Value 05/18/2024 6.3 Albumin (g/dL) Date Value 05/18/2024 4.1 Calcium, Total (mg/dL) Date Value 05/18/2024 9.4 Alkaline Phosphatase (U/L) Date Value 05/18/2024 109 Bilirubin, Total (mg/dL) Date Value 05/18/2024 0.7 AST (U/L) Date Value 05/18/2024 33 ALT (U/L) Date Value 05/18/2024 34 DIAGNOSIS: (C67.8) Malignant 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) (primary encounter diagnosis) Plan: CT ABD/PEL W IVCON, CT CHEST W IVCON, iv contrast (will be provided with radiology test), enteric contrast (will be provided with radiology test), COMPREHENSIVE METABOLIC PANEL, COMPLETE BLOOD COUNT AND DIFFERENTIAL, HEMOGLOBIN A1C, CORTISOL, SERUM, THYROID STIMULATING HORMONE (N18.5) CKD (chronic kidney disease), stage V (HCC) Plan: CT ABD/PEL W IVCON, CT CHEST W IVCON, iv contrast (will be provided with radiology test), enteric contrast (will be provided with radiology test), COMPREHENSIVE METABOLIC PANEL, COMPLETE BLOOD COUNT AND DIFFERENTIAL, HEMOGLOBIN A1C, CORTISOL, SERUM, THYROID STIMULATING HORMONE (C67.9) Malignant neoplasm of urinary bladder, unspecified site (HCC) Plan: CT ABD/PEL W IVCON, CT CHEST W IVCON, iv contrast (will be provided with radiology test), enteric contrast (will be provided with radiology test), COMPREHENSIVE METABOLIC PANEL, COMPLETE BLOOD COUNT AND DIFFERENTIAL, HEMOGLOBIN A1C, CORTISOL, SERUM, THYROID STIMULATING HORMONE (E07.9) Disorder of thyroid Plan: CT ABD/PEL W IVCON, CT CHEST W IVCON, iv contrast (will be provided with radiology test), enteric contrast (will be provided with radiology test), COMPREHENSIVE METABOLIC PANEL, COMPLETE BLOOD COUNT AND DIFFERENTIAL, HEMOGLOBIN A1C, CORTISOL, SERUM, THYROID STIMULATING HORMONE (R79.9) Abnormal blood chemistry Plan: CT ABD/PEL W IVCON, CT CHEST W IVCON, iv contrast (will be provided with radiology test), enteric contrast (will be provided with radiology test), COMPREHENSIVE METABOLIC PANEL, COMPLETE BLOOD COUNT AND DIFFERENTIAL, HEMOGLOBIN A1C, CORTISOL, SERUM, THYROID STIMULATING HORMONE PAST MEDICAL HISTORY No date: Bladder cancer (HCC) No date: Cancer (HCC) Comment: Incasive Ureteral Cancer No date: Hematuria No date: Hypertension No date: Nephrolithiasis PAST SURGICAL HISTORY No date: BACK SURGERY HX No date: CARPAL TUNNEL No date: HERNIA REPAIR HX 06/2018: PAST SURGICAL HISTORY OF; Left Comment: Nephroureterectomy Social History Tobacco Use Smoking status: Former Packs/day: 1.00 Years: 30.00 Additional pack years: 0.00 Total pack years: 30.00 Types: Cigarettes Quit date: 1970 Years since quittin.6 Passive exposure: Past Smokeless tobacco: Never Vaping Use Vaping Use: Never used Substance Use Topics Alcohol use: No Drug use: No FAMILY HISTORY Problem Relation Age of Onset Asthma Mother other (htn) Mother Asthma Sister Anesthesia Problems No Family History I spent a total of 40 minutes on the date of service which included preparing to see the patient, [id number] patient care, completing clinical documentation, obtaining and/or reviewing separately obtained history, performing a medically appropriate examination, counseling and educating the patient/family/caregiver, ordering medications, tests, or procedures, independently interpreting results (not separately reported), communicating results to the patient/family/caregiver, and care coordination (not separately reported). Caesar Vazquez MD, CPE Hematology and Oncology Services Provided at: [place], [place] CC: Yoan Sneed MD [address] [facility] [address] documented in this encounter [facility] 05-18-2024 Note HNO ID: [id number] Author: CAESAR VAZQUEZ MD Service: ? Author Type: Physician Type: Progress Notes Filed: 05/19/2024 11:18 Note Text: NAME: Juan Jose Austin CLINIC NO.: [id number] DATE OF SERVICE: May 18, 2024 (George) Some elements in this clinic note that are critical to medical decision making have been carefully reviewed and included from a prior clinic note dated: December 20, 2023 ([place]) Referring Provider: Dr. Galen Bhatt Additional Clinicians involved in Juan Jose Austin's care: Dr. Yoan Sneed (PCP), Dr. Galen Bhatt, Dr. Jian Rodriguez DIAGNOSIS: Upper urothelial tract carcinoma ASSESSMENT: 84 year old male with right solitary kidney [...] unrevealing. No evidence of pneumonitis on imaging. Recovering from IO induced diarrhea and continues on steroids for now. PLAN: Hold pembrolizumab due to colitis Continue weaning steroids CT CAP scans in 6 weeks with labs RTC in 7 weeks HPI: CASE HISTORY: Reverse Chronological Order 03/23/2024 - CT A/P: Evidence of prior left nephrectomy and adrenalectomy with metallic clips in the left subphrenic region with adjacent fibrosis and scarring from prior surgery. Low-attenuation lesion in the posterior spleen which may represent small hemangioma. Evaluation is limited due to lack of IV contrast. Contrast excretion in the collecting system of the right kidney and activation in the urinary bladder from prior contrast administration. Lower thoracic and lumbar spondylosis with vascular calcification seen and no acute abdominal or pelvic pathology. No definite evidence of distended bowel or transition zone to suggest obstruction. 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 Given the imaging appearance and short-term development, these may be infectious/inflammatory in etiology. Therefore, would advise a short-term follow-up chest CT without contrast in 6-8 weeks to reevaluate the opacities. Stable subcentimeter solid pulmonary nodules. No significant thoracic adenopathy. A/P: Stable appearance of geographic area of hypodensity adjacent to the falciform ligament of the liver which may represent focal fatty infiltration. There is also a stable 6 mm hypervascular focus within the subcapsular dome of segment 8 of the liver which may represent a perfusion anomaly or small vascular anomaly. Stable splenic lesions which are nonspecific on cross-sectional imaging but have been present since 2020. The largest lesion is hypervascular and may represent a hemangioma. The stability is reassuring. Diffuse anasarca as well as a small volume of free fluid in the lower abdomen/pelvis. This is new when compared to the prior exam. Mild right hydronephrosis and hydroureter which is similar in appearance to the prior exam. Left nephrectomy. 12/20/2023 - C14 pembrolizumab 11/05/2023 - XR Abdomen: Nonobstructive bowel gas pattern. 11/05/2023 - US RUQ: 2.4cm echogenic focus in the right hepatic l (more content not included)... [facility] 03-30-2024 Telephone encounter Note Call received from pt's family member stating the prednisone script from 03/20 still has not been signed, and pt continues with uncontrollable diarrhea. Daughter states patient has >7 diarrhea stools a day and has tried imodium with no relief. Pt was admitted to [facility] last week with heart issues and those records are available through care everywhere. Stools for cdiff were negative on Pt refused colonoscopy while admitted... NICOLETTE: please sign script for prednisone that was pended by Elizabeth back on 03/20. Daughter would like this to go to [facility] in [place]. Lauren Mckeon RN [facility] Work Phone: 03-30-2024 Miscellaneous Notes Call received from pt's family member stating the prednisone script from 03/20 still has not been signed, and pt continues with uncontrollable diarrhea. Daughter states patient has >7 diarrhea stools a day and has tried imodium with no relief. Pt was admitted to [facility] last week with heart issues and those records are available through care everywhere. Stools for cdiff were negative on Pt refused colonoscopy while admitted... NICOLETTE: please sign script for prednisone that was pended by Elizabeth back on 03/20. Daughter would like this to go to [facility] in [place]. Lauren Mckeon RN documented in this encounter [facility] 03-20-2024 Telephone encounter Note Spoke w/ pt's daughter who reports that the pt has not been taking Prednisone. Dr notified and orders to start Prednisone 10 mg/day. Pt's daughter notified and verbalizes understanding. Will call back if his symptoms persist. Nicolette: Rx pended. Mahesh So RN [facility] Work Phone: 03-20-2024 Miscellaneous Notes Spoke w/ pt's daughter who reports that the pt has not been taking Prednisone. Dr notified and orders to start Prednisone 10 mg/day. Pt's daughter notified and verbalizes understanding. Will call back if his symptoms persist. Nicolette: Rx pended. Mahesh So RN I think it is very possible - is he still on the prednisone 20 we show in his med list? Of course he's also been in and out of hospitals it looks like so could still be unrelated. Could try a shot of decadron if he's able to come in. Also could try octreotide if GI clears him. Spoke w/ pt's daughter, Britt, who reports that the pt has been having severe diarrhea for 3 weeks. Having up to 10 stools per day. Stools for C Diff and cultures were negative. Pt has an appointment w/ GI in April. Eating and drinking w/o difficulty. Pt tried taking imodium in the beginning but it did not help. Recommended he try it again w/ a max of 8 tabs per day. Daughter verbalizes understanding. Nicolette: Pt was previously on Pembrolizumab. Last treatment was in November. Any chance his symptoms could be a delayed effect? Mahesh So RN Patient's daughter, Britt, left message on my voicemail to cancel today's appointment because patient is having issues . Call placed to Britt to reschedule, she did not answer and unable to leave a VM. [phone] Edwina Olson documented in this encounter [facility] 03-20-2024 Telephone encounter Note I think it is very possible - is he still on the prednisone 20 we show in his med list? Of course he's also been in and out of hospitals it looks like so could still be unrelated. Could try a shot of decadron if he's able to come in. Also could try octreotide if GI clears him. [facility] 03-20-2024 Telephone encounter Note Spoke w/ pt's daughter, Britt, who reports that the pt has been having severe diarrhea for 3 weeks. Having up to 10 stools per day. Stools for C Diff and cultures were negative. Pt has an appointment w/ GI in April. Eating and drinking w/o difficulty. Pt tried taking imodium in the beginning but it did not help. Recommended he try it again w/ a max of 8 tabs per day. Daughter verbalizes understanding. Nicolette: Pt was previously on Pembrolizumab. Last treatment was in November. Any chance his symptoms could be a delayed effect? Mahesh So, RN [facility] 03-20-2024 Telephone encounter Note Patient's daughter, Britt, left message on my voicemail to cancel today's appointment because patient is having issues . Call placed to Britt to reschedule, she did not answer and unable to leave a VM. [phone] Edwina Olson [facility] 02-04-2024 Telephone encounter Note Patient called back and has been scheduled with NICOLETTE and possible treatment tomorrow, 02/04. Patient is all set, Thanks! Edwina Olson [facility] 02-04-2024 Miscellaneous Notes Patient called back and has been scheduled with NICOLETTE and possible treatment tomorrow, 02/04. Patient is all set, Thanks! Edwina Olson Attempted to contact patient again, no answer. Left another detailed message. Edwina Olson Call placed to patient, no answer. Left message on voicemail to call back to reschedule. Edwina Olson Clerical: Pt forgot about today's appointment. Offered to have him come in this afternoon instead. Pt would prefer to reschedule to a different day. Mahesh So, RN Patient was a no show for his follow up with NICOLETTE & his treatment. Skylar John documented in this encounter [facility] 02-03-2024 Telephone encounter Note Attempted to contact patient again, no answer. Left another detailed message. Edwina Olson [facility] 01-31-2024 Telephone encounter Note Call placed to patient, no answer. Left message on voicemail to call back to reschedule. Edwina Olson [facility] 01-31-2024 Telephone encounter Note Clerical: Pt forgot about today's appointment. Offered to have him come in this afternoon instead. Pt would prefer to reschedule to a different day. Mahesh So RN [facility] Work Phone: 01-31-2024 Telephone encounter Note Patient was a no show for his follow up with NICOLETTE & his treatment. Skylar John [facility] 01-24-2024 History of Present illness Narrative Radiology Service Progress Note PATIENT NAME: Juan Jose Austin DATE OF SERVICE: January 24, 2024 TIME: 12:16 PM PATIENT IDENTITY VERIFICATION COMPLETED USING TWO (2) IDENTIFIERS: Name and Date of confirmed by patient verbally. FALL SCREENING: Has the patient had 2 falls in the last year or 1 fall with injury or currently using an Ambulatory Assistive Device (Walker, Cane, Wheelchair, Crutches, etc.)? No PATIENT GENDER DATA: Male PATIENT RELEVANT IMPLANT DATA REVIEWED: Not Applicable PATIENT PRESENTS WITH AN IMPLANTABLE OR ATTACHED DROP FORGER HELPER: No RADIOLOGY DEPARTMENT: CT; Exam(s) Completed: Chest Abdomen Pelvis With IV and Oral contrast PERIPHERAL IV DATA: Site assessment: Clean,Dry and Intact, Site disposition Discontinued SIGNED BY: RT Loida(R) January 24, 2024 12:16 PM documented in this encounter [facility] 12-20-2023 History of Present illness Narrative Images from the original note were not included. NAME: Juan Jose Austin [facility] NO.: [id number] DATE OF SERVICE: December 20, 2023 ([place]) Some elements in this clinic note that are critical to medical decision making have been carefully reviewed and included from a prior clinic note dated: November 29, 2023. (Dr. Vazquez) Referring Provider: Dr. Galen Bhatt Additional Clinicians involved in Juan Jose Austin's care: Dr. Yoan Sneed (PCP), Dr. Galen Bhatt, Dr. Jian Rodriguez DIAGNOSIS: Upper urothelial [...] pacemaker was inserted on on 03/18/2023 at [facility] with Dr. Bautista. His shortness of [...] he is a poor candidate for chemotherapy, lytton based or otherwise. Surgery would yield him [...] Asthma Sister Anesthesia Problems No Family History Patricia Conteh APRN.CNP Hematology and Oncology Services Provided at: [place], [place] CC: Yoan Sneed MD [address] [facility] [address] I spent a total of 30 minutes on the date of the service which included preparing to see the patient, [id number] patient care, completing clinical documentation, obtaining and/or reviewing separately obtained history, performing a medically appropriate examination, counseling and educating the patient/family/caregiver, ordering medications, tests, or procedures, independently interpreting results (not separately reported), and communicating results to the patient/family/caregiver. documented in this encounter [facility] 12-20-2023 Nurse Note Patient state that he has been losing weight, he has no desire to eat, nothing tastes good he has to force himself to eat. Jami Hernandez MA documented in this encounter [facility] 11-29-2023 History of Present illness Narrative Images from the original note were not included. NAME: Juan Jose Austin [facility] NO.: [id number] DATE OF SERVICE: November 29, 2023 ([place]) Some elements in this clinic note that are critical to medical decision making have been carefully reviewed and included from a prior clinic note dated: October 10, 2023 (George) Referring Provider: Dr. Galen Bhatt Additional Clinicians involved in Juan Jose Austin's care: Dr. Yoan Sneed (PCP), Dr. Galen Bhatt, Dr. Jian Rodriguez DIAGNOSIS: Upper urothelial [...] for continued treatment. Labs same day. See Patricia or Corazon RTC 6 weeks with ne Labs same day HPI: CASE HISTORY: Reverse [...] recurrence. Updated Visit, July 18, 2023: Dr. Sened checked his thyroid out and it is [...] pacemaker was inserted on on 03/18/2023 at [facility] with Dr. Bautista. His shortness of [...] he is a poor candidate for chemotherapy, lytton based or otherwise. Surgery would yield him [...] which included preparing to see the patient, [id number] patient care, completing clinical documentation, performing a medically appropriate examination, counseling and educating the patient/family/caregiver, ordering medications, tests, or procedures, independently interpreting results (not separately reported), communicating results to the patient/family/caregiver, and care coordination (not separately reported). Caesar Vazquez MD, CPE Hematology and Oncology Services Provided at: [facility], [place], [place] Scribe Attestation: This note was scribed [...] my direction. CC: Yoan Sneed MD [address] [facility] [id number] documented in this encounter [facility] 11-29-2023 Instructions Jessica Pathak - 11/29/2023 1:14 PM EST Proceed with pembrolizumab cycle 13 today. Hydration today. Follow up in 3 weeks for continued treatment. Labs same day. See Patricia or Corazon RTC 6 weeks with me Labs same day documented in this encounter [facility] 11-22-2023 Miscellaneous Notes Patient has been rescheduled to 11/29 and notified. Thanks! Edwina Olson Voicemail message received from pt requesting to reschedule his missed appointment w/ Dr Vazquez. Clerical: Please call pt @ [phone] to schedule. Thanks! Mahesh So, RN Pt still in need of f/u appointment. Call placed to pt. No answer. Message left requesting call back. Call placed to pt's spouse. No answer. Message left requesting call back. Mahesh So RN documented in this encounter [facility] 11-14-2023 Miscellaneous Notes Patient called, saying [...] appointments. HU Moore documented in this encounter [facility] 08-29-2023 History of Present illness Narrative Images from the original note were not included. NAME: Juan Jose Austin [facility] NO.: [id number] DATE OF SERVICE: August 29, 2023 ([facility]) Some elements in this clinic note that are critical to medical decision making have been carefully reviewed and included from a prior clinic note dated: July 18, 2023 (George). Referring Provider: Galen Bhatt Additional Clinicians involved in Juan Jose Austin's care: Dr. Yoan Sneed (PCP), Dr. Galen Bhatt, Dr. Jian Rodriguez DIAGNOSIS: Upper urothelial [...] next week. RTC in 3 weeks with Patricia to review toxicity and consider dropping steroids [...] pacemaker was inserted on on 03/18/2023 at [facility] with Dr. Bautista. His shortness of [...] he is a poor candidate for chemotherapy, lytton based or otherwise. Surgery would yield him [...] which included preparing to see the patient, iufl-wu-[id number] patient care, completing clinical documentation, performing a medically appropriate examination, counseling and educating the patient/family/caregiver, ordering medications, tests, or procedures, independently interpreting results (not separately reported), communicating results to the patient/family/caregiver, and care coordination (not separately reported). Caesar Vazquez MD, CPE Hematology and Oncology Services Provided at: [place], [place] CC: No referring provider defined for this encounter. 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 Then decrease to 30 mg daily for 1 week and then decrease to 20 mg the next week. RTC in 3 weeks with Patricia to review toxicity and consider dropping steroids further. Once he is below 10 mg Prednisone we can restart his Keytruda. documented in this encounter [facility] 08-23-2023 History of Present illness Narrative Radiology Service Progress Note DATE OF SERVICE: August 23, 2023 TIME: 9:26 AM PATIENT WEIGHT: 165LBS PATIENT IDENTITY VERIFICATION COMPLETED USING TWO (2) STANDARD IDENTIFIERS: Name and Date of confirmed by patient verbally. FALL SCREENING: Has the patient had 2 falls in the last year or 1 fall with injury or currently using an Ambulatory Assistive Device (Walker, Cane, Wheelchair, Crutches, etc.)? No PATIENT GENDER DATA: Male ALLERGIES: Reviewed and unchanged CONTRAST ALLERGY: No EXAM: CT -CONTRAST INDUCED NEPHROPATHY RISK FACTORS: Patient age > 60 years CREATININE: Creatinine Date Value Ref Range Status 08/08/2023 1.97 (H) 0.73 - 1.22 mg/dL Final 07/18/2023 2.03 (H) 0.73 - 1.22 mg/dL Final 06/27/2023 1.89 (H) 0.73 - 1.22 mg/dL Final Estimated Glomerular Filtration Rate Date Value Ref Range Status 08/08/2023 33 (L) >=60 mL/min/1.73m Final Comment: Estimated Glomerular Filtration Rate (eGFR) is calculated using [...] GFR. eGFR- Date Value Ref Range Status 12/04/2021 42 Final P.O.C.T. RESULTS: POC done: Yes, See Lab Tab August 23, 2023 TREATMENT: N/A IV SITE: Ambulatory: A peripheral IV was started in the Right antecubital site with a Angio cath: 20 gauge. IV SITE APPEARANCE: Clean,Dry and Intact SIGNATURE: Shannan Castelan RN PATIENT NAME: Juan Jose Austin DATE: August 23, 2023 TIME: 9:26 AM Radiology Service Progress Note PATIENT NAME: Juan Jose Austin DATE OF SERVICE: August 23, 2023 TIME: 9:43 AM PATIENT IDENTITY VERIFICATION COMPLETED USING TWO (2) IDENTIFIERS: Name and Date of confirmed by patient verbally. FALL SCREENING: Has the patient had 2 falls in the last year or 1 fall with injury or currently using an Ambulatory Assistive Device (Walker, Cane, Wheelchair, Crutches, etc.)? No PATIENT GENDER DATA: Male PATIENT RELEVANT IMPLANT DATA REVIEWED: Not Applicable RADIOLOGY DEPARTMENT: CT; Exam(s) Completed: Chest Abdomen Pelvis With IV and Oral contrast PERIPHERAL IV DATA: Site assessment: Clean,Dry and Intact, Site disposition Discontinued SIGNED BY: RT Loida(R) August 23, 2023 9:43 AM documented in this encounter [facility] 08-08-2023 Miscellaneous Notes FYI: Pt reports [...] Pt verbalizes understanding. No additional questions noted. Mahesh So, RN documented in this encounter [facility] 07-18-2023 Instructions Caesar Vazquez MD - 07/18/2023 1:39 PM EDT Proceed with cycle 9 pembrolizumab today. In 3 weeks to for cycle 10. Labs prior No clinician RTC in 6 weeks prior to C11 Labs every [address] in 5 weeks documented in this encounter [facility] 07-18-2023 History of Present illness Narrative [...] patient's care: Dr. Yoan Sneed (PCP), Dr. Galen Bhatt, Dr. Jian Rodriguez DIAGNOSIS: Upper urothelial [...] pacemaker was inserted on on 03/18/2023 at [facility] with Dr. Bautista. His shortness of [...] he is a poor candidate for chemotherapy, lytton based or otherwise. Surgery would yield him [...] which included preparing to see the patient, ofwl-wt-ohpy patient care, completing clinical documentation, performing a medically appropriate examination, counseling and educating the patient/family/caregiver, ordering medications, tests, or procedures, independently interpreting results (not separately reported), communicating results to the patient/family/caregiver, and care coordination (not separately reported). Caesar Vazquez MD, CPE Hematology and Oncology Services Provided at: [place], [place] CC: No referring provider defined for this encounter. Yoan Sneed MD [address] [facility] [id number] documented in this encounter [facility] 06-27-2023 History of Present illness Narrative ONCOLOGY FOLLOW UP June 27, 2023 ([place]) Some elements in this clinic note that are critical to medical decision making have been carefully reviewed and included from a prior clinic note dated: June 06, 2023. (Dr. Vazquez) PCP and other physicians involved in patient's care: Dr. Yoan Sneed (PCP), Dr. Galen Bhatt, Dr. Jian Rodriguez DIAGNOSIS: Upper urothelial [...] pacemaker was inserted on on 03/18/2023 at [facility] with Dr. Bautista. His shortness of [...] he is a poor candidate for chemotherapy, lytton based or otherwise. Surgery would yield him [...] weeks to for cycle 9. Labs prior. Patricia Conteh APRN.[facility] Hematology and Oncology Services Provided at: [facility], [place], [place] I spent a total of 30 minutes on the date of the service which included preparing to see the patient, rote-nz-[id number] patient care, completing clinical documentation, obtaining and/or reviewing separately obtained history, performing a medically appropriate examination, counseling and educating the patient/family/caregiver, ordering medications, tests, or procedures, independently interpreting results (not separately reported), and communicating results to the patient/family/caregiver. documented in this encounter [facility] 06-18-2023 History of Present illness Narrative VIRTUAL VISIT PROGRESS NOTE This is a virtual visit using Audio only. It required patient-provider interaction for the medical decision making as documented below. I have communicated my name and active licensure. The patient's identity and physical location were verified at the time of this visit. Either the patient or their legal medical device sales representative has been informed of the [...] [place] Bhatt MD documented in this encounter [facility] 06-06-2023 History of Present illness Narrative [...] patient's care: Dr. Yoan Sneed (PCP), Dr. Galen Bhatt, Dr. Jian Rodriguez DIAGNOSIS: Upper urothelial [...] pacemaker was inserted on on 03/18/2023 at [facility] with Dr. Bautista. His shortness of [...] he is a poor candidate for chemotherapy, lytton based or otherwise. Surgery would yield him [...] which included preparing to see the patient, lasf-rw-wcmz patient care, completing clinical documentation, performing a medically appropriate examination, counseling and educating the patient/family/caregiver, ordering medications, tests, or procedures, and independently interpreting results (not separately reported). Caesar Vazquez MD, CPE Hematology and Oncology Services Provided at: [place], [place] documented in this encounter [facility] 05-31-2023 Miscellaneous Notes Requested Prescriptions Pending Prescriptions Disp Refills tamsulosin (FLOMAX) 0.4 mg 30 capsule 5 Sig: Take 1 capsule by mouth once daily. DAUGHTER STATES PATIENT IS OUT OF PILLS documented in this encounter [facility] 05-31-2023 History of Present illness Narrative Radiology Service Progress Note DATE OF SERVICE: May 31, 2023 TIME: 9:19 AM PATIENT WEIGHT: 176LBS PATIENT IDENTITY VERIFICATION COMPLETED USING TWO (2) STANDARD IDENTIFIERS: Name and Date of confirmed by patient verbally. FALL SCREENING: Has the patient had 2 falls in the last year or 1 fall with injury or currently using an Ambulatory Assistive Device (Walker, Cane, Wheelchair, Crutches, etc.)? No PATIENT GENDER DATA: Male ALLERGIES: Reviewed and unchanged CONTRAST ALLERGY: No EXAM: CT -CONTRAST INDUCED NEPHROPATHY RISK FACTORS: Patient age > 60 years CREATININE: Creatinine Date Value Ref Range Status 05/16/2023 1.87 (H) 0.73 - 1.22 mg/dL Final 04/25/2023 1.71 (H) 0.73 - 1.22 mg/dL Final 04/04/2023 2.05 (H) 0.73 - 1.22 mg/dL Final Estimated Glomerular Filtration Rate Date Value Ref Range Status 05/16/2023 35 (L) >=60 mL/min/1.73m Final Comment: Estimated Glomerular Filtration Rate (eGFR) is calculated using [...] GFR. eGFR- Date Value Ref Range Status 12/04/2021 42 Final P.O.C.T. RESULTS: N/A May 31, 2023 TREATMENT: N/A IV SITE: Ambulatory: A peripheral IV was started in the Left antecubital site with a Angio cath: 20 gauge. IV SITE APPEARANCE: Clean,Dry and Intact SIGNATURE: Shannan Castelan RN PATIENT NAME: Juan Jose Austin DATE: May 31, 2023 TIME: 9:19 AM Radiology Service Progress Note PATIENT NAME: Juan Jose Austin DATE OF SERVICE: May 31, 2023 TIME: 11:24 AM PATIENT IDENTITY VERIFICATION COMPLETED USING TWO (2) IDENTIFIERS: Name and Date of confirmed by patient verbally. FALL SCREENING: Has the patient had 2 falls in the last year or 1 fall with injury or currently using an Ambulatory Assistive Device (Walker, Cane, Wheelchair, Crutches, etc.)? No PATIENT GENDER DATA: Male PATIENT RELEVANT IMPLANT DATA REVIEWED: Not Applicable RADIOLOGY DEPARTMENT: CT; Exam(s) Completed: Chest Abdomen Pelvis With IV and Oral contrast PERIPHERAL IV DATA: Site assessment: Clean,Dry and Intact, Site disposition Discontinued SIGNED BY: RT Loida(R) May 31, 2023 11:24 AM documented in this encounter [facility] 05-16-2023 Instructions Caesar Vazquez MD - 05/16/2023 2:[address] CAP in 1 -2 weeks Reschedule appointment with Dr. Bhatt after CT. Proceed with cycle 6 pembrolizumab today. Follow up in 3 weeks to for cycle 7. Labs prior. Review Scans Hold Lasix for a few days to see if mouth improves. documented in this encounter [facility] 05-16-2023 History of Present illness Narrative Images from the original note were not included. ONCOLOGY FOLLOW UP May 16, 2023 (George) Some elements in this clinic note that are critical to medical decision making have been carefully reviewed and included from a prior clinic note dated:April 25, 2023 ([place]) PCP and other physicians involved in patient's care: Dr. Yoan Sneed (PCP), Dr. Galen Bhatt, Dr. Jian Rodriguez DIAGNOSIS: Upper urothelial [...] pacemaker was inserted on on 03/18/2023 at [facility] with Dr. Bautista. His shortness of [...] he is a poor candidate for chemotherapy, lytton based or otherwise. Surgery would yield him [...] which included preparing to see the patient, jsab-tn-oagb patient care, completing clinical documentation, performing a medically appropriate examination, counseling and educating the patient/family/caregiver, ordering medications, tests, or procedures, and independently interpreting results (not separately reported). Caesar Vazquez MD, CPE Hematology and Oncology Services Provided at: [place], [place] documented in this encounter [facility] 05-07-2023 History of Present illness Narrative s documented in this encounter [facility] 04-25-2023 History of Present illness Narrative [...] patient's care: Dr. Yoan Sneed (PCP), Dr. Galen Bhatt, Dr. Jian Rodriguez DIAGNOSIS: Upper urothelial [...] pacemaker was inserted on on 03/18/2023 at [facility] with Dr. Bautista. His shortness of [...] he is a poor candidate for chemotherapy, lytton based or otherwise. Surgery would yield him [...] will need to discuss when to restage. Patricia Conteh APRN.CNP Hematology and Oncology Services Provided at: [place], [place] I spent a total of 30 minutes on the date of the service which included preparing to see the patient, xizi-ow-mpyw patient care, completing clinical documentation, obtaining and/or reviewing separately obtained history, performing a medically appropriate examination, counseling and educating the patient/family/caregiver, ordering medications, tests, or procedures, independently interpreting results (not separately reported), and communicating results to the patient/family/caregiver. documented in this encounter [facility] 04-04-2023 History of Present illness Narrative [...] patient's care: Dr. Yoan Sneed (PCP), Dr. Galen Bhatt, Dr. Jian Rodriguez DIAGNOSIS: Upper urothelial [...] pacemaker was inserted on on 03/18/2022 at [facility] with Dr. Bautista. His shortness of [...] he is a poor candidate for chemotherapy, lytton based or otherwise. Surgery would yield him [...] weeks to for cycle 5. Labs prior. Patricia Conteh APRN.CNP Hematology and Oncology Services Provided at: [place], [place] I spent a total of 30 minutes on the date of the service which included preparing to see the patient, eogn-ll-hoid patient care, completing clinical documentation, obtaining and/or reviewing separately obtained history, performing a medically appropriate examination, counseling and educating the patient/family/caregiver, ordering medications, tests, or procedures, independently interpreting results (not separately reported), and communicating results to the patient/family/caregiver. 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 Pt reports that his dyspnea is only on exertion. Denies feeling short of breath at rest. Pt was outside working in his flower beds and mulching during our call. Mahesh So RN * Telephone Encounter - Mary Jo Mendez - 01/31/2023 8:[address] Nicolette Johnson would like you to call Juan Jose next week. 02-07 to check symptoms. Thank you [facility] History of Present illness Narrative* Padmini Mike RN - 01/31/2023 9:22 AM EDT No labs today per Dr. Vazquez. Padmini Mike RN documented in this [facility]04-20-2023 Instructions* Patient Instructions* Caesar Vazquez MD - 01/31/2023 8:50 AM EDT Resume C2 pembrolizumab today. RTC in 3 weeks Ask Ms. So to call next week to heck symptoms [facility] History of Present illness Narrative* Caesar [...] he is a poor candidate for chemotherapy, lytton based or otherwise. Surgery would yield him [...] which included preparing to see the patient, scry-uy-lhcx patient care, completing clinical documentation, performing a medically appropriate examination, counseling and educating the patient/family/caregiver, ordering medications, tests, or p rocedures, communicating with other HCPs (not separately reported), independently interpreting results (not separately reported), and communicating results to the patient/family/caregiver. Caesar Vazquez MD, CPE Hematology and Oncology Services Provided at: [place], [place] documented [facility] History of Present illness Narrative* Mahesh Smith RT(R) - 01/23/2023 3:15 PM EDT Radiology Service Progress Note PATIENT NAME: Juan Jose Austin DATE OF SERVICE: January 23, 2023 TIME: 3:07 PM PATIENT IDENTITY VERIFICATION COMPLETED USING TWO (2) IDENTIFIERS: Name and Date of confirmedby patient verbally. FALL SCREENING: Has the patient had 2 falls in the last year or 1 fall with injury or currently using an Ambulatory Assistive Device (Walker, Cane, Wheelchair, Crutches, etc.)? No PATIENT GENDER DATA: Male PATIENT RELEVANT IMPLANT DATA REVIEWED: Not Applicable RADIOLOGY DEPARTMENT: CT; Exam(s) Completed: Chest PERIPHERAL IV DATA: Not applicable SIGNED BY: RT Loida(Rosa) January 23, 2023 3:07 PM documented [facility] Miscellaneous Notes* Telephone Encounter - Mahesh So RN - 01/08/2023 3:49 PM EDT [...] medical attention and after hours number protocol. Mahesh So RN documented [facility] Instructions* Patient Instructions* Caesar Vazquez MD - 01/02/2023 3:18 PM EDT Start Keytruda q 3 weeks Labs same day. RTC 3 weeks with Patricia / Corazon C2 documented [facility] History of Present illness Narrative* Caesar [...] he is a poor candidate for chemotherapy, lytton based or otherwise. Surgery would yield him [...] Labs same day. RTC 3 weeks with Patricia / Corazon Owens I spent a total of 30 minutes on the date of the service which included preparing to see the patient, tynu-cc-nrix patient care, completing clinical documentation, obtaining and/or reviewing separately obtained history, counseling and educating the patient/family/caregiver, ordering medications, edin ts, or procedures, independently interpreting results (not separately reported), and communicating results to the patient/family/caregiver. Caesar Vazquez MD, CPE Hematology and Oncology Services Provided at: [place], [place] documented in [facility] Nurse Note* Liberty Hayes - 01/02/2023 3:08 PM EDT Pt requested recent blood work faxed to Dr. Sneed. Faxed via [employer]. Liberty Hayes documented [facility] History of Present illness Narrative* Mahesh So RN - 12/31/2022 1:34 PM EDT [...] Time Spent: 25 minutes REFERRAL (RECOMMENDATION): N/A Mahesh So RN documented in [facility]03-[facility]23 Miscellaneous Notes* Telephone Encounter - Jimbo Alarcon MD - 12/19/2022 8:54 AM EST Patient cancelled Nephrology appt for 12/20/22. Called patient, plan to get labs in the coming days to ensure continued improvement of Cr. documented in this [facility]03[facility]23 Miscellaneous Notes* Telephone Encounter - Lauren Mendez - 12/17/2022 11:21 AM EST Called patient and r/s to next week * Telephone Encounter - Lauren Mckeon RN - 12/17/2022 11:15 AM EST Pt's caris testing has not been resulted yet. Please call pt and reschedule to next week per Dr Moncada's request. Thanks Lauren Mckeon RN documented in [facility] Hospital Discharge instructions Patient Education 12/05/2022 [...] cells. Follow these instructions at home: Take ngjj-cyj-mvhlhlu and prescription medicines only as told by [...] is important. Where to find more information [employer]: www.cancer.org National Cancer [employer] (NCI): www.cancer.gov Contact a health care provider [...] 10/02/2004 Document Revised: 09/12/2018 Document Reviewed: 09/03/2017 [employer] Patient Education 2020 [employer]. Follow Up Care 11/23/2022 15:08:18 With:JENNIFER FOUNTAIN, Jian Lee, URL Address: [facility] [address] [place] [address]- When: Unknown [facility] [id number] Instructions* Patient Instructions* Caesar Vazquez MD - 11/26/2022 9:29 AM EST 1. Virtual visit 3 weeks after discussion with Dr. Bhatt and consideration of molecular studies. 2. AP Mol. documented in this [facility] History of Present illness Narrative* Caesar [...] CPE Hematology and Oncology Services Provided at: [place], [place] I spent a total of 40 minutes on the date of the service which included preparing to see the patient, hyod-oe-klih patient care, completing clinical documentation, obtaining and/or reviewing separately obtained history, performing a medically appropriate examination, counseling and educating the pat ient/family/caregiver, ordering medications, tests, or procedures, independently interpreting results (not separately reported) and communicating results to the patient/family/caregiver. documented in this encounterM[facility]02-[facility]23 Nurse Note* Jami Hernandez MA - 11/26/2022 8:47 AM EST Patient [facility] he will havehis ureteral stent removed locally by Dr. Rodriguez. Jami Hernandez MA documented in this encounterM[facility]02[facility] History of Present illness Narrative* Galen Bhatt MD - 11/20/2022 1:30 PM EST [...] would probably be best off recieving terminal system operator immunotherapy or other systemic therapy. We could [...] obtaining and/or reviewing separately obtained history I, Galen Bhatt MD, personally performed the services described in this documentation. All medical record entries made by the scribe were at my direction and in my presence. I have reviewed the chart and discharge instructions (if applicable) and agree that the record reflects my personal performance and is accurate and complete. Galen Bhatt MD documented in this [facility]11[facility] History of Present illness Narrative* Nicholas Saenz MD - 09/12/2022 2:45 PM EST [facility] PRE-OP NOTE Patient is a 82 year old male Pre-op Date: 09/12/22 Date of Procedure: 09/19/22 Does the patient have an active COVID-19 test in Epic? NA Procedure/Surgery: Cystoscopy, Right retrograde pyelogram, right diagnostic ureteroscopy, possible biopsy, possible laser ablation Diagnosis: right upper tract urothelial carcinoma Primary Surgeon: Galen Bhatt MD Pain Assessment: Are you currently [...] surgery pending LABS, IMPACT documented in this [facility] History and physical note * aFtimah Salcedo PA-C - 09/12/2022 12:40 PM EST [...] URETERAL J at the request of Dr. Galen Bhatt for consultation. My final recommendation will [...] fevers. Neuro: No history of TIA's, stroke, CORPORATE HEALTH CONSULTANT tumor, impaired sensorium, hemiplegia, paraplegia or quadraplegia. No neurological symptoms or problems. Respiratory: No history of current cough or dyspnea, or pneumonia in the past 6 weeks. No history of respiratory/pulmonary symptoms or problems. Cardiovascular: Negative for Recent ND, Angina, Arrhythmia, CAD, Chest Pain, PVD, Valvular [...] BLOCK ABNORMAL ECG ECHO 02/27/22 scanned into [facility] Assessment/Plan Hypertensive heart disease with heart failure (HCC) -BP elevated in office 171/70, 170/72, patient reports he has not taken any of his medications yet today -denies cardiac symptoms -EF 55% on echo 02/2022 scanned into [employer] -on hydralazine, losartan, isosorbide dinitrate, and Jardiance [...] service. Requested most recent office note from wire preparation machine tender, Dr. Mason Castaneda. Planned Anesthetic: General Instructions Given to Patient: Instructions located in the after visit summary. Patient given verbal and written preop instructions and voices comprehension and compliance. SIGNATURE: Fatimah Salcedo PA-C PATIENT NAME: Juan Jose Austin DATE: September 12, 2022 TIME: 11:37 AM documented in this encounterM[facility]11-30-2022 Instructions* Patient Instructions* Fatimah Salcedo PA-C - 09/12/2022 11:21 AM EST PATIENT PREOPERATIVE INSTRUCTIONS Galen Bhatt MD has scheduled you for your procedure at this surgery center: [facility] Scheduling Office: [phone] --[address] [place] [address]. Please read below carefully for your personalized [...] Procedures: - YOU MUST HAVE A RESPONSIBLE WAREHOUSE SELECTOR TAKE YOU HOME. A MUNITIONS HANDLER OR WIND COMMISSIONING TECHNICIAN CANNOT BE MADE A RESPONSIBLE WAREHOUSE SELECTOR. - We recommend that a responsible person [...] call the Saturday before. Your surgeon s supervisor gate services will tell you what time to call the office. - If you have not reached the departmental supervisor gate services by 5 P.M., call [phone] after 5 P.M. the day before your surgery. Please be aware that emergency situations arise, which may delay or change your surgical time. If this happens, we will notify you as soon as possible and regret any inconvenience. If you already have an Advance Directive, please fax a copy to [phone] or email to for it to be [...] day. Fatimah Salcedo PA-C [facility]* Encounter Date Diagnosis Assessment Notes Treatment Notes Treatment Clinical Notes Jul, Left sided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 (ICD-10 - K51.50) [employer] Other 06-13-2022 History of Present illness Narrative* Jimmy Tejada PA-C - 03/26/2022 5:41 PM EDT This Team Access Model visit is a virtual encounter. It required patient- provider interaction for the medical decision making as documented below. Chief complaint: Preop teaching [facility] PRE-OP NOTE [...] minutes Jimmy Tejada PA-C documented [facility] History of Present illness Narrative* Galen Bhatt MD - 03/13/2022 2:10 PM EDT VIRTUAL VISIT PROGRESS NOTE This is a virtual visit using [employer] video visit. It required patient-provider interaction for [...] 1 tablet by mouth once daily. Fish Oil-[place]-3 Fatty Acids (FISH OIL) 300-1,000 mg cap [...] the date of the service which included [id number] patient care, completing clinical documentation, obtaining and/or reviewing separately obtained history and counseling and educating the patient/family/caregiver Scribe Attestation: By signing my name below, Gely Roman, attest that this documentation has been prepared underthe direction and in the presence of Dr. Galen Bhatt MD. Electronically signed: Wendy Ahn, March 13, 2022 2:39 PM Galen Roman MD, personally performed the services described in this documentation. All medical record entries made by the scribe were at my direction and in my presence. I have reviewed the chart and discharge instructions (if applicable) and agree that the record reflects my personal performance and is accurate and complete. Galen Bhatt MD documented [facility]* Encounter Date Diagnosis Assessment Notes Treatment Notes Treatment Clinical Notes February, Left sided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 (ICD-10 - K51.50) PATIENT TO CONTINUE ON THE MEDICATION DIRECTED. February, Malignant neoplasm of right kidney (ICD-10 - C64.1) [employer] Other 05-23-2022 History of Present illness Narrative* [...] which included preparing to see the patient, [id number] patient care, completing clinical documentation, obtaining and/or reviewing separately obtained history, performing a medically appropriate examination, counseling and educating the pat ient/family/caregiver, ordering medications, tests, or procedures, independently interpreting results (not separately reported) and communicating results to the patient/family/caregiver. documented in [facility] History of Present illness Narrative* Corazon [...] weeks. Corazon Maxwell PA-C documented in [facility] encounterM[facility] History of Present illness Narrative* Soren [...] pT2Nx Seen and evaluated by Dr. Glen Andreson and chemotherapy declined February 05, 2019 TURBT [...] which included preparing to see the patient, [id number] patient care, completing clinical documentation, obtaining and/or reviewing separately obtained history, performing a medically appropriate examination, counseling and educating the pat ient/family/caregiver, ordering medications, tests, or procedures, independently interpreting results (not separately reported) and communicating results to the patient/family/caregiver. documented in [facility] encounterM[facility]04[facility] History of Present illness Narrative* Soren [...] which included preparing to see the patient, [id number] patient care, completing clinical documentation, obtaining and/or reviewing separately obtained history, performing a medically appropriate examination, counseling and educating the pat ient/family/caregiver, ordering medications, tests, or procedures, independently interpreting results (not separately reported) and communicating results to the patient/family/caregiver. documented in this encounterM[facility]04[facility]22 History of Present illness Narrative* Belia Martínez RN - 01/22/2022 1:27 PM EDT . documented in this encounterM[facility]04-04-[facility] History of Present illness Narrative* Irma Ariza RN - 01/15/2022 1:38 PM EDT . documented in this encounterM[facility]04-04-[facility]22 History of Present illness Narrative* Corazon [...] 8. Corazon Maxwell PA-C documented in this encounterM[facility]03-28-[facility] History of Present illness Narrative* Soren [...] Blood work today shows platelet count of [id number]. I will hold treatment today and continue with cycle 3 day 1 in a week. The plan is to repeat endoscopy evaluation after 3-6 cycles of chemotherapy based on tolerance. Soren Perea MD I spent a total of 20 minutes on the date of the service which included preparing to see the patient, [id number] patient care, completing clinical documentation, obtaining and/or reviewing separately obtained history, performing a medically appropriate examination, counseling and educating the pat ient/family/caregiver, ordering medications, tests, or procedures, independently interpreting results (not separately reported) and communicating results to the patient/family/caregiver. documented in [facility] encounterM[facility]09[facility] History of Present illness Narrative* Linda [...] 2020 TIME: 11:15 AM documented in this encounterM[facility] HospitalEvaluation + Plan note Future Appointments Appointment Date:12/18/2022 01:00:00 PM Scheduled Provider:Jian RODRIGUEZ MD Location:[facility] [place] Appointment Type:URO Procedure 15 min [facility] Evaluation note* Diagnosis Malignant neoplasm of ureter, unspecified laterality (HCC)- Primary documented in this encounter [facility] note* Diagnosis Malignant neoplasm of ureter, unspecified laterality (HCC)- Primary documented in this encounter [facility] note* Diagnosis Malignant neoplasm of ureter, unspecified laterality (HCC)- Primary documented in this encounter [facility] note* Diagnosis Malignant neoplasm of ureter, unspecified laterality (HCC)- Primary documented in this encounter [facility] note* Diagnosis Malignant neoplasm of ureter, unspecified laterality (HCC)- Primary documented in this encounter [facility] note* Diagnosis Malignant neoplasm of ureter, unspecified laterality (HCC)- Primary documented in this encounter [facility] note* Diagnosis Malignant neoplasm of ureter, unspecified laterality (HCC)- Primary documented in this encounter [facility] note* Diagnosis Malignant neoplasm of ureter, unspecified laterality (HCC)- Primary documented in this encounter [facility] note* Diagnosis Urothelial carcinoma (HCC)- Primary Other malignant neoplasm without specification of site Urothelial carcinoma (HCC) Other malignant neoplasm without specification of site documented in this encounter [facility] note* Diagnosis Urothelial carcinoma (HCC)- Primary Other malignant neoplasm without specification of site Urothelial carcinoma (HCC) Other malignant neoplasm without specification of site documented in this encounter [facility] note* Diagnosis 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, unspecified laterality (HCC)- Primary Acute cystitis without hematuria Acute cystitis documented in this encounter [facility] note* Diagnosis Urothelial carcinoma (HCC)- Primary Other malignant neoplasm without specification of site Urothelial carcinoma (HCC) Other malignant neoplasm without specification of site documented in this encounter [facility] note* Diagnosis Pre-op evaluation- Primary Preoperative examination, unspecified Hypertensive heart disease with heart failure (HCC) 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 Gastro-esophageal reflux disease without esophagitis Esophageal reflux 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 Stage 3 chronic kidney disease, unspecified whether stage 3a or 3b CKD (HCC) 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, 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, except renal pelvis (HCC) Malignant neoplasm of kidney, except pelvis Malignant neoplasm of urinary bladder, unspecified site (HCC) documented in this encounter [facility] note* Diagnosis Urothelial carcinoma (HCC)- Primary Other malignant neoplasm without specification of site Malignant neoplasm of right kidney, except renal pelvis (HCC) Malignant neoplasm of kidney, except pelvis Malignant neoplasm of urinary bladder, unspecified site (HCC) [facility] Diagnosis Screening for genitourinary condition Screening for other and unspecified genitourinary condition Malignant neoplasm of right kidney, except renal pelvis (HCC) Malignant neoplasm of kidney, except pelvis Malignant neoplasm of urinary bladder, unspecified site (HCC) [facility] Diagnosis 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, unspecified laterality (HCC)- Primary documented in this encounter [facility] noteNo [facility] Other Evaluation note* Diagnosis CELSO (acute kidney injury) (HCC)- Primary Acute kidney failure, unspecified documented in this encounter [facility] note* Diagnosis 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 Malignant neoplasm of other specified sites of bladder documented in this encounter [facility] note* Diagnosis 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 Malignant neoplasm of other specified sites of bladder Malignant neoplasm of right kidney, except renal pelvis (HCC) Malignant neoplasm of kidney, except pelvis Malignant neoplasm of ureter, unspecified laterality (HCC) documented in this encounter [facility] note* Diagnosis 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 Malignant neoplasm of other specified sites of bladder Malignant neoplasm of ureter, unspecified laterality (HCC) documented in this encounter [facility] note* Diagnosis 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 Malignant neoplasm of other specified sites of bladder documented in this encounter [facility] note* Diagnosis Malignant neoplasm of overlapping sites [...] of bladder [facility] Diagnosis Urothelial cancer (HCC)- Primary Malignant [...] unspecified site (HCC) documented in this encounter [facility] note* Diagnosis Abnormal finding of diagnostic imaging- Primary Other nonspecific (abnormal) findings on radiological and other examinations of body structure 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 Malignant neoplasm of other specified sites of bladder Disorder of thyroid Unspecified disorder of thyroid documented in this encounter [facility] note* Diagnosis Elevated troponin- Primary Other abnormal blood chemistry documented in this encounter [facility]* Diagnosis 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 Malignant neoplasm of other specified sites of bladder CKD (chronic kidney disease), stage V (HCC) Chronic kidney disease, Stage V Malignant neoplasm of urinary bladder, unspecified site (HCC) Disorder of thyroid Unspecified disorder of thyroid Abnormal blood chemistry Other abnormal blood chemistry documented in this encounter [facility] note* Diagnosis Pre-op evaluation- Primary Preoperative examination, unspecified Hypertensive heart disease with heart failure (HCC) 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 Gastro-esophageal reflux disease without esophagitis Esophageal reflux 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 Stage 3 chronic kidney disease, unspecified whether stage 3a or 3b CKD (HCC) 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, unspecified laterality (HCC) Malignant neoplasm of urinary bladder, unspecified site (HCC) Malignant 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) Malignant neoplasm of other specified sites of bladder CKD (chronic kidney disease), stage V (HCC) Chronic kidney disease, Stage V Abnormal weight loss Loss of weight documented in this encounter [facility] note* Diagnosis Pre-op evaluation- Primary Preoperative examination, unspecified Hypertensive heart disease with heart failure (HCC) 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 Gastro-esophageal reflux disease without esophagitis Esophageal reflux 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 Stage 3 chronic kidney disease, unspecified whether stage 3a or 3b CKD (HCC) 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, unspecified laterality (HCC) Malignant 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) Malignant neoplasm of other specified sites of bladder documented in this encounter [facility] note* Diagnosis Pre-op evaluation- Primary Preoperative examination, unspecified Hypertensive heart disease with heart failure (HCC) 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 Gastro-esophageal reflux disease without esophagitis Esophageal reflux 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 Stage 3 chronic kidney disease, unspecified whether stage 3a or 3b CKD (HCC) 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, unspecified laterality (HCC) Malignant 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) Malignant neoplasm of other specified sites of bladder CKD (chronic kidney disease), stage V (HCC) Chronic kidney disease, Stage V Malignant neoplasm of urinary bladder, unspecified site (HCC) Disorder of thyroid Unspecified disorder of thyroid Abnormal blood chemistry Other abnormal blood chemistry documented in this encounter [facility] note* Diagnosis Pre-op evaluation- Primary Preoperative examination, unspecified Hypertensive heart disease with heart failure (HCC) 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 Gastro-esophageal reflux disease without esophagitis Esophageal reflux 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 Stage 3 chronic kidney disease, unspecified whether stage 3a or 3b CKD (HCC) 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, unspecified laterality (HCC) Malignant 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) Malignant neoplasm of other specified sites of bladder documented in this encounter [facility] note* Diagnosis Pre-op evaluation- Primary Preoperative examination, unspecified Hypertensive heart disease with heart failure (HCC) 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 Gastro-esophageal reflux disease without esophagitis Esophageal reflux 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 Stage 3 chronic kidney disease, unspecified whether stage 3a or 3b CKD (HCC) 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, unspecified laterality (HCC) Malignant 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) Malignant neoplasm of other specified sites of bladder documented in this encounter [facility] note* Diagnosis Pre-op evaluation- Primary Preoperative examination, unspecified Hypertensive heart disease with heart failure (HCC) 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 Gastro-esophageal reflux disease without esophagitis Esophageal reflux 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 Stage 3 chronic kidney disease, unspecified whether stage 3a or 3b CKD (HCC) 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, unspecified laterality (HCC) 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 Malignant neoplasm of other specified sites of bladder CKD (chronic kidney disease), stage V (HCC) Chronic kidney disease, Stage V Malignant neoplasm of urinary bladder, unspecified site (HCC) documented in this encounter [facility] note* Diagnosis Chest discomfort- Primary Other chest pain documented in this encounter [facility] note* Diagnosis Pre-op evaluation- Primary Preoperative examination, unspecified Hypertensive heart disease with heart failure (HCC) 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 Gastro-esophageal reflux disease without esophagitis Esophageal reflux 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 Stage 3 chronic kidney disease, unspecified whether stage 3a or 3b CKD (HCC) 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, unspecified laterality (HCC) Malignant 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) Malignant neoplasm of other specified sites of bladder documented in this encounter [facility] note* Diagnosis Congenital hypothyroidism Dyslipidemia Other and unspecified hyperlipidemia documented in this encounter [facility] note* Diagnosis Pre-op evaluation- Primary Preoperative examination, unspecified Hypertensive heart disease with heart failure (HCC) 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 Gastro-esophageal reflux disease without esophagitis Esophageal reflux 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 Stage 3 chronic kidney disease, unspecified whether stage 3a or 3b CKD (HCC) 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, unspecified laterality (HCC) 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 Malignant neoplasm of other specified sites of bladder Malignant neoplasm of urinary bladder, unspecified site (HCC) CKD (chronic kidney disease), stage V (HCC) Chronic kidney disease, Stage V Disorder of thyroid Unspecified disorder of thyroid 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 documented in this encounter [facility] note* Diagnosis Abscess Cellulitis and abscess of unspecified site documented in this encounter [facility] note* Diagnosis Open wound of left chest wall, initial encounter- Primary 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 Infection of pacemaker pocket, initial encounter [facility] Diagnosis Open wound of left chest wall, initial encounter- Primary Pacemaker complications, initial encounter [facility]* Diagnosis Chest wall ulcer, with fat layer exposed ([facility])- Primary Infection of pacemaker pocket, initial encounter Open wound of left chest wall, initial encounter [facility] - Reported* Type Description Date Medical History colitis Medical History hyperlipidemia Medical History HTN Medical History KIDNEY CANCER Surgical History KIDNEY REMOVED [employer] [facility] [employer] Other History general Narrative - Reported* Type Description Date Medical History colitis Medical History hyperlipidemia Medical History HTN Medical History KIDNEY CANCER Surgical History KIDNEY REMOVED Hospitalization History No Hospitalization histo ry information [employer] [facility] [employer] Other Hospital course Narrative No data available for this section [facility] [place] InstructionsNot on filedocumented in this encounter [facility]Not on filedocumented in this encounter [facility] System[facility]ructionsNot on filedocumented in this encounter [facility] System[facility]ructionsNot on filedocumented in this encounter [facility] No data available for this section [facility] Reason for referral (narrative)* Outpatient Procedure (Routine) - Pending Review Specialty Diagnoses / Procedures Referred By Brian camacho Referred To Contact [facility] [place] Diagnoses 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, unspecified laterality (HCC) Procedures ECG COMPLETE ECG ROUTINE ECG W/LEAST 12 LDS W/I&R Galen Bahtt MD [address] [place] [address] [facility] [place] [address] Referral ID Status Reason Start Date Expiration Date Visits Requested Visits Authorized [id number] Pending Review Auto-Generat ed Referral 03/13/2022 03/13/2023 1 1 [facility] for referral (narrative)* Outpatient Procedure (Routine) - Closed Specialty Diagnoses / Procedures Referred By Brian camacho Referred To Contact [facility] Diagnoses Pre-op evaluation Procedures ECG COMPLETE ECG ROUTINE ECG W/LEAST 12 LDS W/I&R Fatimah Salcedo PA-C [address] [place] [address] [facility] [address] [place] [address] Referral ID Status Reason Start Date Expiration Date V isits Requested Visits Authorized [id number] Closed Auto-Generate d Referral 09/12/2022 09/12/2023 1 1 [facility] Summary Purpose Family History No Family History Records FoundNo Family History Records FoundNo Family History Records FoundNo Family History Records FoundNo Family History Records FoundNo Family History Records FoundNo Family History Records FoundNo Family History Records FoundNo Family History Records FoundNo Family History Records Found Advance Directives No Advanced Directives Records FoundDocuments on File Type Date Recorded 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 Advance Directive(s) 11/01/2021 2:32 PM Advance Directive(s) 10/28/2019 10:37 AM Advance Directive(s) 09/30/2019 10:07 AM Advance Directive(s) 09/15/2019 2:16 PM Advance Directive(s) 08/11/2019 11:16 AM Advance Directive(s) 08/11/2019 11:21 AM Documents on File Type Date Recorded 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 Advance Directive(s) 11/01/2021 2:32 PM Advance Directive(s) 10/28/2019 10:37 AM Advance Directive(s) 09/30/2019 10:07 AM Advance Directive(s) 09/15/2019 2:16 PM Advance Directive(s) 08/11/2019 11:16 AM Advance Directive(s) 08/11/2019 11:21 AM Documents on File Type Date Recorded 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 Advance Directive(s) 03/14/2022 4:48 PM Advance Directive(s) 11/01/2021 2:32 PM Advance Directive(s) 10/28/2019 10:37 AM Advance Directive(s) 09/30/2019 10:07 AM Advance Directive(s) 09/15/2019 2:16 PM Advance Directive(s) 08/11/2019 11:16 AM Advance Directive(s) 08/11/2019 11:21 AM Documents on File Type Date Recorded 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 Advance Directive(s) 03/14/2022 4:48 PM Advance Directive(s) 11/01/2021 2:32 PM Advance Directive(s) 10/28/2019 10:37 AM Advance Directive(s) 09/30/2019 10:07 AM Advance Directive(s) 09/15/2019 2:16 PM Advance Directive(s) 08/11/2019 11:16 AM Advance Directive(s) 08/11/2019 11:21 AM Documents on File Type Date Recorded 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 Advance Directive(s) 05/04/2022 1:37 PM Advance Directive(s) 03/14/2022 4:48 PM Advance Directive(s) 11/01/2021 2:32 PM Advance Directive(s) 10/28/2019 10:37 AM Advance Directive(s) 09/30/2019 10:07 AM Advance Directive(s) 09/15/2019 2:16 PM Advance Directive(s) 08/11/2019 11:16 AM Advance Directive(s) 08/11/2019 11:21 AM Documents on File Type Date Recorded 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 Advance Directive(s) 08/11/2019 11:21 AM Documents on File Type Date Recorded 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 Advance Directive(s) 08/11/2019 11:21 AM Healthcare Agents on File Name Relationship Healthcare Agent Relationshi p Communication Dennis Austin Child Primary Decision Maker [phone] (Home) Healthcare Agents on File Name Relationship Healthcare Agent Relationshi p Communication Denins Austin Child Primary Decision Maker [phone] (Home) Healthcare Agents on File Name Relationship Healthcare Agent Relationshi p Communication Dennis Austin Child Primary Decision Maker [phone] (Home) Healthcare Agents on File Name Relationship Healthcare Agent Relationshi p Communication Dennis Austin Child Primary Decision Maker [phone] (Home) Date Activated Date Inactivated Comments 04/19/2025 5:09 PM 04/23/2025 4:07 PM Date Activated Date Inactivated Comments 04/19/2025 5:09 PM 04/23/2025 4:07 PM Medications Administered Section Inactive Administered Medications - [...] over 30 Minutes, ONCE, 1 dose, On Euseiba 05/16/23 at 1430, EXP: 05/16/232029 RT Administer [...] dose, On Eusebia 06/27/23 at 1400, EXP: 2145 06/27/23 Administer with 0.2 micron filter. New Bag/Syringe/Bottle [...] COMPUTED TOMOGRAPHY THORAX W/CONTRAST Caesar Vazquez MD [address] [place], [place] [address] [address] Ct Imaging Referral ID Status Reason Start Date Expiration Date Visits Requested Visits Authorized [id number] Authorized Auto-Generat ed Referral 05/16/2023 06/14/2024 1 1 Specialty Diagnoses / Procedures Referred By Contac t Referred To Contact CT IMAGING Diagnoses Malignant 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) Procedures CT ABD/PEL W IVCON CT ABD & PELVIS W/CONTRAST Caesar Vazquez MD [address] [place] [address] [place] [address] Ct Imaging Referral ID Status Reason Start Date Expiration Date Visits Requested Visits Authorized [id number] Authorized Auto-Generat ed Referral 05/16/2023 06/14/2024 1 1 Additional Source Comments (unrecognized sect ion and content) No Status Records FoundNo Status Records FoundNo Status Records FoundNo Status Records FoundNo Status Records FoundNo Status Records FoundNo Status Records FoundNo Status Records FoundNo Status Records FoundNo Status Records Found INFORMATION SOURCE (unrecogn ized section and content) DATE CREATED AUTHOR 04/30/2018 [facility] DATE CREATED AUTHOR AUTHOR'S ORGANIZ ATION 03/06/2019 [facility] DATE CREATED AUTHOR AUTHOR'S ORGANIZ ATION 03/24/2023 [facility] DATE CREATED AUTHOR AUTHOR'S ORGANIZ ATION 04/27/[address] [facility] DATE CREATED AUTHOR AUTHOR'S ORGANIZ ATION 01/22/2025 [facility] DATE CREATED AUTHOR AUTHOR'S ORGANIZ ATION 04/08/2025 [facility] DATE CREATED AUTHOR AUTHOR'S ORGANIZ ATION 04/26/2025 [facility] DATE CREATED AUTHOR AUTHOR'S ORGANIZ ATION 05/09/2025 [facility] DATE CREATED AUTHOR AUTHOR'S ORGANIZ ATION 05/18/2025 [facility] DATE CREATED AUTHOR AUTHOR'S ORGANIZ ATION 07/01/2025 [facility] Source Comments (unrecognize d section and content) In the event this informatio n is protected by the Federal Confidentiality of Alcohol and Drug Abuse Patient Records regulations: The Federal rules restrict any use of the information to criminally investigate or prosecute any alcohol or drug abuse patient.[facility] the event this information is protected by the Federal Confidentiality of Alcohol and Drug Abuse Patient Records regulations: The Federal rules restrict any use of the information to criminally investigate or prosecute any alcohol or drug abuse patient.[facility]In the event this information is protected by the Federal Confidentiality of Alcohol and Drug Abuse Patient Records regulations: The Federal rules restrict any use of the information to criminally investigate or prosecute any alcohol or drug abuse patient.[facility]In the event this information is protected by the Federal Confidentiality of Alcohol and Drug Abuse Patient Records regulations: The Federal rules restrict any use of the information to criminally investigate or prosecute any alcohol or drug abuse patient.[facility] HospitalIn the event this information is protected by the Federal Confidentiality of Alcohol and Drug Abuse Patient Records regulations: The Federal rules restrict any use of the information to criminally investigate or prosecute any alcohol or drug abuse patient.[facility] HospitalIn the event this information is protected by the Federal Confidentiality of Alcohol and Drug Abuse Patient Records regulations: The Federal rules restrict any use of the information to criminally investigate or prosecute any alcohol or drug abuse patient.[facility]In the event this information is protected by the Federal Confidentiality of Alcohol and Drug Abuse Patient Records regulations: The Federal rules restrict any use of the information to criminally investigate or prosecute any alcohol or drug abuse patient.[facility] HospitalIn the event this information is protected by the Federal Confidentiality of Alcohol and Drug Abuse Patient Records regulations: The Federal rules restrict any use of the information to criminally investigate or prosecute any alcohol or drug abuse patient.[facility] HospitalIn the event this information is protected by the Federal Confidentiality of Alcohol and Drug Abuse Patient Records regulations: The Federal rules restrict any use of the information to criminally investigate or prosecute any alcohol or drug abuse patient.[facility] HospitalIn the event this information is protected by the Federal Confidentiality of Alcohol and Drug Abuse Patient Records regulations: The Federal rules restrict any use of the information to criminally investigate or prosecute any alcohol or drug abuse patient.[facility] HospitalIn the event this information is protected by the Federal Confidentiality of Alcohol and Drug Abuse Patient Records regulations: The Federal rules restrict any use of the information to criminally investigate or prosecute any alcohol or drug abuse patient.[facility] HospitalIn the event this information is protected by the Federal Confidentiality of Alcohol and Drug Abuse Patient Records regulations: The Federal rules restrict any use of the information to criminally investigate or prosecute any alcohol or drug abuse patient.[facility] HospitalIn the event this information is protected by the Federal Confidentiality of Alcohol and Drug Abuse Patient Records regulations: The Federal rules restrict any use of the information to criminally investigate or prosecute any alcohol or drug abuse patient.[facility] HospitalIn the event this information is protected by the Federal Confidentiality of Alcohol and Drug Abuse Patient Records regulations: The Federal rules restrict any use of the information to criminally investigate or prosecute any alcohol or drug abuse patient.[facility] HospitalIn the event this information is protected by the Federal Confidentiality of Alcohol and Drug Abuse Patient Records regulations: The Federal rules restrict any use of the information to criminally investigate or prosecute any alcohol or drug abuse patient.[facility] HospitalIn the event this information is protected by the Federal Confidentiality of Alcohol and Drug Abuse Patient Records regulations: The Federal rules restrict any use of the information to criminally investigate or prosecute any alcohol or drug abuse patient.[facility] HospitalIn the event this information is protected by the Federal Confidentiality of Alcohol and Drug Abuse Patient Records regulations: The Federal rules restrict any use of the information to criminally investigate or prosecute any alcohol or drug abuse patient.[facility] HospitalIn the event this information is protected by the Federal Confidentiality of Alcohol and Drug Abuse Patient Records regulations: The Federal rules restrict any use of the information to criminally investigate or prosecute any alcohol or drug abuse patient.[facility] HospitalIn the event this information is protected by the Federal Confidentiality of Alcohol and Drug Abuse Patient Records regulations: The Federal rules restrict any use of the information to criminally investigate or prosecute any alcohol or drug abuse patient.[facility] HospitalIn the event this information is protected by the Federal Confidentiality of Alcohol and Drug Abuse Patient Records regulations: The Federal rules restrict any use of the information to criminally investigate or prosecute any alcohol or drug abuse patient.[facility] HospitalIn the event this information is protected by the Federal Confidentiality of Alcohol and Drug Abuse Patient Records regulations: The Federal rules restrict any use of the information to criminally investigate or prosecute any alcohol or drug abuse patient.[facility] HospitalIn the event this information is protected by the Federal Confidentiality of Alcohol and Drug Abuse Patient Records regulations: The Federal rules restrict any use of the information to criminally investigate or prosecute any alcohol or drug abuse patient.[facility] HospitalIn the event this information is protected by the Federal Confidentiality of Alcohol and Drug Abuse Patient Records regulations: The Federal rules restrict any use of the information to criminally investigate or prosecute any alcohol or drug abuse patient.[facility] HospitalIn the event this information is protected by the Federal Confidentiality of Alcohol and Drug Abuse Patient Records regulations: The Federal rules restrict any use of the information to criminally investigate or prosecute any alcohol or drug abuse patient.[facility] HospitalIn the event this information is protected by the Federal Confidentiality of Alcohol and Drug Abuse Patient Records regulations: The Federal rules restrict any use of the information to criminally investigate or prosecute any alcohol or drug abuse patient.[facility] HospitalIn the event this information is protected by the Federal Confidentiality of Alcohol and Drug Abuse Patient Records regulations: The Federal rules restrict any use of the information to criminally investigate or prosecute any alcohol or drug abuse patient.[facility] HospitalIn the event this information is protected by the Federal Confidentiality of Alcohol and Drug Abuse Patient Records regulations: The Federal rules restrict any use of the information to criminally investigate or prosecute any alcohol or drug abuse patient.[facility] HospitalIn the event this information is protected by the Federal Confidentiality of Alcohol and Drug Abuse Patient Records regulations: The Federal rules restrict any use of the information to criminally investigate or prosecute any alcohol or drug abuse patient.[facility] HospitalIn the event this information is protected by the Federal Confidentiality of Alcohol and Drug Abuse Patient Records regulations: The Federal rules restrict any use of the information to criminally investigate or prosecute any alcohol or drug abuse patient.[facility] HospitalIn the event this information is protected by the Federal Confidentiality of Alcohol and Drug Abuse Patient Records regulations: The Federal rules restrict any use of the information to criminally investigate or prosecute any alcohol or drug abuse patient.[facility] HospitalIn the event this information is protected by the Federal Confidentiality of Alcohol and Drug Abuse Patient Records regulations: The Federal rules restrict any use of the information to criminally investigate or prosecute any alcohol or drug abuse patient.[facility] HospitalIn the event this information is protected by the Federal Confidentiality of Alcohol and Drug Abuse Patient Records regulations: The Federal rules restrict any use of the information to criminally investigate or prosecute any alcohol or drug abuse patient.[facility] HospitalIn the event this information is protected by the Federal Confidentiality of Alcohol and Drug Abuse Patient Records regulations: The Federal rules restrict any use of the information to criminally investigate or prosecute any alcohol or drug abuse patient.[facility] HospitalIn the event this information is protected by the Federal Confidentiality of Alcohol and Drug Abuse Patient Records regulations: The Federal rules restrict any use of the information to criminally investigate or prosecute any alcohol or drug abuse patient.[facility] HospitalIn the event this information is protected by the Federal Confidentiality of Alcohol and Drug Abuse Patient Records regulations: The Federal rules restrict any use of the information to criminally investigate or prosecute any alcohol or drug abuse patient.[facility] HospitalIn the event this information is protected by the Federal Confidentiality of Alcohol and Drug Abuse Patient Records regulations: The Federal rules restrict any use of the information to criminally investigate or prosecute any alcohol or drug abuse patient.[facility] HospitalIn the event this information is protected by the Federal Confidentiality of Alcohol and Drug Abuse Patient Records regulations: The Federal rules restrict any use of the information to criminally investigate or prosecute any alcohol or drug abuse patient.[facility] HospitalIn the event this information is protected by the Federal Confidentiality of Alcohol and Drug Abuse Patient Records regulations: The Federal rules restrict any use of the information to criminally investigate or prosecute any alcohol or drug abuse patient.[facility] HospitalIn the event this information is protected by the Federal Confidentiality of Alcohol and Drug Abuse Patient Records regulations: The Federal rules restrict any use of the information to criminally investigate or prosecute any alcohol or drug abuse patient.[facility] HospitalIn the event this information is protected by the Federal Confidentiality of Alcohol and Drug Abuse Patient Records regulations: The Federal rules restrict any use of the information to criminally investigate or prosecute any alcohol or drug abuse patient.[facility] HospitalIn the event this information is protected by the Federal Confidentiality of Alcohol and Drug Abuse Patient Records regulations: The Federal rules restrict any use of the information to criminally investigate or prosecute any alcohol or drug abuse patient.[facility] HospitalIn the event this information is protected by the Federal Confidentiality of Alcohol and Drug Abuse Patient Records regulations: The Federal rules restrict any use of the information to criminally investigate or prosecute any alcohol or drug abuse patient.[facility] HospitalIn the event this information is protected by the Federal Confidentiality of Alcohol and Drug Abuse Patient Records regulations: The Federal rules restrict any use of the information to criminally investigate or prosecute any alcohol or drug abuse patient.[facility] HospitalIn the event this information is protected by the Federal Confidentiality of Alcohol and Drug Abuse Patient Records regulations: The Federal rules restrict any use of the information to criminally investigate or prosecute any alcohol or drug abuse patient.[facility] HospitalIn the event this information is protected by the Federal Confidentiality of Alcohol and Drug Abuse Patient Records regulations: The Federal rules restrict any use of the information to criminally investigate or prosecute any alcohol or drug abuse patient.[facility] HospitalIn the event this information is protected by the Federal Confidentiality of Alcohol and Drug Abuse Patient Records regulations: The Federal rules restrict any use of the information to criminally investigate or prosecute any alcohol or drug abuse patient.[facility] HospitalIn the event this information is protected by the Federal Confidentiality of Alcohol and Drug Abuse Patient Records regulations: The Federal rules restrict any use of the information to criminally investigate or prosecute any alcohol or drug abuse patient.[facility] HospitalIn the event this information is protected by the Federal Confidentiality of Alcohol and Drug Abuse Patient Records regulations: The Federal rules restrict any use of the information to criminally investigate or prosecute any alcohol or drug abuse patient.[facility] HospitalIn the event this information is protected by the Federal Confidentiality of Alcohol and Drug Abuse Patient Records regulations: The Federal rules restrict any use of the information to criminally investigate or prosecute any alcohol or drug abuse patient.[facility] HospitalIn the event this information is protected by the Federal Confidentiality of Alcohol and Drug Abuse Patient Records regulations: The Federal rules restrict any use of the information to criminally investigate or prosecute any alcohol or drug abuse patient.[facility] HospitalIn the event this information is protected by the Federal Confidentiality of Alcohol and Drug Abuse Patient Records regulations: The Federal rules restrict any use of the information to criminally investigate or prosecute any alcohol or drug abuse patient.[facility] HospitalIn the event this information is protected by the Federal Confidentiality of Alcohol and Drug Abuse Patient Records regulations: The Federal rules restrict any use of the information to criminally investigate or prosecute any alcohol or drug abuse patient.[facility] HospitalIn the event this information is protected by the Federal Confidentiality of Alcohol and Drug Abuse Patient Records regulations: The Federal rules restrict any use of the information to criminally investigate or prosecute any alcohol or drug abuse patient.[facility] HospitalIn the event this information is protected by the Federal Confidentiality of Alcohol and Drug Abuse Patient Records regulations: The Federal rules restrict any use of the information to criminally investigate or prosecute any alcohol or drug abuse patient.[facility] HospitalIn the event this information is protected by the Federal Confidentiality of Alcohol and Drug Abuse Patient Records regulations: The Federal rules restrict any use of the information to criminally investigate or prosecute any alcohol or drug abuse patient.[facility] HospitalIn the event this information is protected by the Federal Confidentiality of Alcohol and Drug Abuse Patient Records regulations: The Federal rules restrict any use of the information to criminally investigate or prosecute any alcohol or drug abuse patient.[facility] HospitalIn the event this information is protected by the Federal Confidentiality of Alcohol and Drug Abuse Patient Records regulations: The Federal rules restrict any use of the information to criminally investigate or prosecute any alcohol or drug abuse patient.[facility] HospitalIn the event this information is protected by the Federal Confidentiality of Alcohol and Drug Abuse Patient Records regulations: The Federal rules restrict any use of the information to criminally investigate or prosecute any alcohol or drug abuse patient.[facility] HospitalIn the event this information is protected by the Federal Confidentiality of Alcohol and Drug Abuse Patient Records regulations: The Federal rules restrict any use of the information to criminally investigate or prosecute any alcohol or drug abuse patient.[facility] HospitalIn the event this information is protected by the Federal Confidentiality of Alcohol and Drug Abuse Patient Records regulations: The Federal rules restrict any use of the information to criminally investigate or prosecute any alcohol or drug abuse patient.[facility] HospitalIn the event this information is protected by the Federal Confidentiality of Alcohol and Drug Abuse Patient Records regulations: The Federal rules restrict any use of the information to criminally investigate or prosecute any alcohol or drug abuse patient.[facility] HospitalIn the event this information is protected by the Federal Confidentiality of Alcohol and Drug Abuse Patient Records regulations: The Federal rules restrict any use of the information to criminally investigate or prosecute any alcohol or drug abuse patient.[facility] HospitalIn the event this information is protected by the Federal Confidentiality of Alcohol and Drug Abuse Patient Records regulations: The Federal rules restrict any use of the information to criminally investigate or prosecute any alcohol or drug abuse patient.[facility] HospitalIn the event this information is protected by the Federal Confidentiality of Alcohol and Drug Abuse Patient Records regulations: The Federal rules restrict any use of the information to criminally investigate or prosecute any alcohol or drug abuse patient.[facility] HospitalIn the event this information is protected by the Federal Confidentiality of Alcohol and Drug Abuse Patient Records regulations: The Federal rules restrict any use of the information to criminally investigate or prosecute any alcohol or drug abuse patient.[facility] HospitalIn the event this information is protected by the Federal Confidentiality of Alcohol and Drug Abuse Patient Records regulations: The Federal rules restrict any use of the information to criminally investigate or prosecute any alcohol or drug abuse patient.[facility] Reason for Visit (unrecogniz ed section and content) Reason Comments malignant neoplasm of ureter follow up t reatment Reason Comments ureter cancer Specialty Diagnoses / Procedures Referred By Contac t Referred To Contact Diagnoses Malignant neoplasm of ureter (HCC) Soren Perea MD [address] [place] [address] 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) Caesar Vazquez MD [address] [place] [address] [place] [address] [employer] [address] [place] [address] Referral ID Status Reason Start Date Expiration Date V isits Requested Visits Authorized [id number] Authorized 12/24/2022 03/24/2023 99 99 Reason Comments [...] t Specialty Diagnoses / Procedures [facility] Referred To Contact Diagnoses Malignant neoplasm of ureter, 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 Right sided sharp pains worsening with deep breath. Reason Comments Care Coordination Diarrhea >1 month Reason Comments Appointment Cancelled Diarrhea Reason Comments Radiology CT Specialty Diagnoses / Procedures Referred By Contac t Referred To Contact CT IMAGING Diagnoses Malignant neoplasm of urinary bladder, unspecified site (HCC) Procedures CT ABD/PEL W IVCON CT ABD & PELVIS W/CONTRAST Patricia Conteh, SUPERINTENDENT MAINTENANCE.[address] [place] [address] Ct Imaging [id number] Referral ID Status Reason Start Date Expiration Date V isits Requested Visits Authorized [id number] Closed Auto-Generate d Referral 12/20/2023 01/18/2025 1 1 Specialty Diagnoses / Procedures Referred By Contac t Referred To Contact CT IMAGING Diagnoses Malignant 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) Procedures CT CHEST W IVCON DIAGNOSTIC COMPUTED TOMOGRAPHY THORAX W/CONTRAST Caesar Vazquez MD [address] [place] [address] [place] [address] Ct Imaging [facility]95 Referral ID Status Reason Start Date Expiration Date V isits Requested Visits Authorized [id number] Closed Auto-Generate d Referral 08/22/2023 08/16/2024 1 1 Specialty Diagnoses / Procedures Referred By Contac t Referred To Contact CT IMAGING Diagnoses 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), 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, unspecified site (HCC) Disorder of thyroid Abnormal blood chemistry Procedures CT ABD/PEL W IVCON CT ABD & PELVIS W/CONTRAST Caesar Vazquez MD [address] [place] [address] [place] [address] [place] [address] Referral ID Status Reason Start Date Expiration Date V isits Requested Visits Authorized [id number] Closed Auto-Generate d Referral 06/29/2024 06/17/2025 1 1 Referral ID Status Reason Start Date Expiration Date V isits Requested Visits Authorized [id number] Closed Auto-Generate d Referral 05/16/2023 06/14/2024 [address] Specialty Diagnoses / Procedures Referred By Contac t Referred To Contact CT IMAGING Diagnoses Malignant 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) Procedures CT CHEST WO IVCON DIAGNOSTIC COMPUTED TOMOGRAPHY THORAX W/O CNTRST Patricia Conteh, SUPERINTENDENT MAINTENANCE.OUTSIDE MACHINIST [address] [place] [address] [place] [address] [place] [address] Referral ID Status Reason Start Date Expiration Date V isits Requested Visits Authorized [id number] Closed Auto-Generate d Referral 01/23/2023 02/22/2024 1 1 Reason Comments OTHER Pacemaker feels like its moving . Referral ID Status Reason Start Date Expiration Date V isits Requested Visits Authorized [id number] Closed Auto-Generate d Referral 10/16/2024 09/20/2025 1 1 Reason Comments Wound Check Specialty Diagnoses / Procedures Referred By Contac t Referred To Contact Wound Care Diagnoses Surgical wound present Open wound of left chest wall, initial encounter Mahogany Fragoso, SUPERINTENDENT MAINTENANCE-OUTSIDE MACHINIST [address] [place] [address] Phone: tel: fax: [facility] [address] [place] [phone] Phone: tel: Referral ID Status Reason Start Date Expiration Date Visits Requested Visits Authorized [id number] Pending Review Specialty Services Required 04/22/2025 04/22/2026 1 1 Reason Onset Date Comments Extraction site 05/05/2025 Reason Onset Date Comments Reminder 05/05/2025 Reason Comments Follow-up in-udqnj-rrajpymua w /ptstatus post dual-chamber leadless pacemakerChest infection due to the pacemaker Atrial Fibrillation Shortness of Breath Reason Comments Wound Check Specialty Diagnoses / Procedures Referred By Contac t Referred To Contact Wound Care Diagnoses Surgical wound present Open wound of left chest wall, initial encounter Mahogany Fragoso, SUPERINTENDENT MAINTENANCE-OUTSIDE MACHINIST [address] [place] [address] Phone: tel: fax: [facility] [address] [place] [phone] Phone: tel: Referral ID Status Reason Start Date Expiration Date Visits Requested Visits Authorized [id number] Pending Review Specialty Services Required 04/22/2025 04/22/2026 1 1 Care Teams (unrecognized sec tion and content) Rubber Goods Repairer Relationship Specialty Start Date End Date Yoan Sneed MD [address] [place] [address] PCP - General Family Practice 07/30/19 Jian Rodriguez MD [address] [place] [address] Physician Urology 10/28/19 Lauren Mckeon, RN [address] [facility] [place] [place] [address] Specialty Enrollment Representative Hematology/Oncology 11/21/21 Soren Perea MD [address] [facility] [address] [place], [facility] Physician Hematology/Oncology 11/21/21 Corazon Maxwell, PAEnocC [address] [facility] [place] [address] Physician Green Energy Marketing Analyst Hematology/Oncology 11/21/21 Rubber Goods Repairer Relationship Specialty Start Date End Date Yoan Sneed MD [address] [place] [address] PCP - General Family Practice 07/30/19 Jian Rodriguez MD [address] [place] [address] Physician Urology 10/28/19 Lauren Mckeon, RN [address] [facility] [place] [address] Specialty Enrollment Representative Hematology/Oncology 11/21/21 Soren Perea MD [address] [facility] [place] [address] Physician Hematology/Oncology 11/21/21 Corazon Maxwell PA-C [address] [place] [address] Physician Green Energy Marketing Analyst Hematology/Oncology 11/21/21 Rubber Goods Repairer Relationship Specialty Start Date End Date Yoan Sneed MD [address] [place] [address] PCP - General Family Practice 07/30/19 Jian Rodriguez MD [address] [place] [address] Physician Urology 10/28/19 Lauren Mckeon, RN [address] [facility] [place] [place] [address] Specialty Enrollment Representative Hematology/Oncology 11/21/21 Soren Perea MD [address] [facility] [place] [address] Physician Hematology/Oncology 11/21/21 Corazon Maxwell PA-C [address] [facility] [place] [place] [address] Physician Green Energy Marketing Analyst Hematology/Oncology 11/21/21 Rubber Goods Repairer Relationship Specialty Start Date End Date Yoan Sneed MD [address] [place] [address] PCP - General Family Practice 07/30/19 Jian Rodriguez MD [address] [place] [address] Physician Urology 10/28/19 Lauren Mckeon, RN [address] [facility] [place] [place] [address] Specialty Enrollment Representative Hematology/Oncology 11/21/21 Soren Perea MD [address] [facility] [place] [address] Physician Hematology/Oncology 11/21/21 Corazon Maxwell PA-C [address] [place] [address] Physician Green Energy Marketing Analyst Hematology/Oncology 11/21/21 Rubber Goods Repairer Relationship Specialty Start Date End Date Yoan Sneed MD [address] [place] [address] PCP - General Family Practice 07/30/19 Jian Rodriguez MD [address] [place] [address] Physician Urology 10/28/19 Lauren Mckeon, RN [address] [place] [address] Specialty Enrollment Representative Hematology/Oncology 11/21/21 Soren Perea MD [address] [facility] [address], [facility] Physician Hematology/Oncology 11/21/21 Corazon Maxwell PA-C [address] [place] [address] Physician Green Energy Marketing Analyst Hematology/Oncology 11/21/21 Rubber Goods Repairer Relationship Specialty Start Date End Date Yoan Sneed MD [address] [place] [address] PCP - General Family Practice 07/30/19 Jian Rodriguez MD [address] [place] [address] Physician Urology 10/28/19 Lauren Mckeon, RN [address] [facility] [place] [place] [address] Specialty Enrollment Representative Hematology/Oncology 11/21/21 Soren Perea MD [address] [place] [address] Physician Hematology/Oncology 11/21/21 Corazon Maxwell PA-C [address] [place] [address] Physician Green Energy Marketing Analyst Hematology/Oncology 11/21/21 Rubber Goods Repairer Relationship Specialty Start Date End Date Yoan Sneed MD [address] [place] [address] PCP - General Family Practice 07/30/19 Jian Rodriguez MD [address] [place] [address] Physician Urology 10/28/19 Lauren Mckeon, RN [address] [facility] [place] [place] [address] Specialty Enrollment Representative Hematology/Oncology 11/21/21 Soren Perea MD [address] [facility] [place] [address] Physician Hematology/Oncology 11/21/21 Corazon Maxwell PA-C [address] [facility] [place] [place] [address] Physician Green Energy Marketing Analyst Hematology/Oncology 11/21/21 Rubber Goods Repairer Relationship Specialty Start Date End Date Yoan Sneed MD [address] [place] [address] PCP - General Family Practice 07/30/19 Jian Rodriguez MD [address] [place] [address] Physician Urology 10/28/19 Lauren Mckeon, RN [address] [facility] [place] [place] [address] Specialty Enrollment Representative Hematology/Oncology 11/21/21 Soren Perea MD [address] [facility] [place] [address] Physician Hematology/Oncology 11/21/21 Corazon Maxwell PA-C [address] [place] [address] Physician Green Energy Marketing Analyst Hematology/Oncology 11/21/21 Rubber Goods Repairer Relationship Specialty Start Date End Date Yoan Sneed MD [address] [place] [address] PCP - General Family Practice 07/30/19 Jian Rodriguez MD [address] [place] [address] Physician Urology 10/28/19 Lauren Mckeon, RN [address] [place] [address] Specialty Enrollment Representative Hematology/Oncology 11/21/21 Soren Perea MD [address] [facility] [place] [address] Physician Hematology/Oncology 11/21/21 Corazon Maxwell, PAEnocC [address] [place] [address] Physician Green Energy Marketing Analyst Hematology/Oncology 11/21/21 Rubber Goods Repairer Relationship Specialty Start Date End Date Yoan Sneed MD [address] [place] [address] PCP - General Family Practice 07/30/19 Jian Rodriguez MD [address] [place] [address] Physician Urology 10/28/19 Lauren Mckeon RN [address] [facility] [place] [place] [address] Specialty Enrollment Representative Hematology/Oncology 11/21/21 Soren Perea MD [address] [place] [address] Physician Hematology/Oncology 11/21/21 Corazon Maxwell, PAEnocC [address] [place] [address] Physician Green Energy Marketing Analyst Hematology/Oncology 11/21/21 Rubber Goods Repairer Relationship Specialty Start Date End Date Yoan Sneed MD [address] [place] [address] PCP - General Family Practice 07/30/19 Jian Rodriguez MD [address] [place] [address] Physician Urology 10/28/19 Lauren Mckeon, RN [address] [facility] [place] [address] Specialty Enrollment Representative Hematology/Oncology 11/21/21 Soren Perea MD [address] [facility] [place] [address] Physician Hematology/Oncology 11/21/21 Corazon Maxwell, PAEnocC [address] [facility] [place] [place] [place] [address] Physician Green Energy Marketing Analyst Hematology/Oncology 11/21/21 Rubber Goods Repairer Relationship Specialty Start Date End Date Yoan Sneed MD [address] [place] [address] PCP - General Family Medicine 07/30/19 Jian Rodriguez MD [address] [place] [address] Physician Urology 10/28/19 Soren Perea MD [address] [facility] [place] [address] Physician Hematology/Oncology 11/21/21 Casey Castaneda MD [address] [facility] [address] [place] [id number] Cardiology 09/12/22 Rubber Goods Repairer Relationship Specialty Start Date End Date Yoan Sneed MD [address] [place] [address] PCP - General Family Medicine 07/30/19 Jian Rodriguez MD [address] [place] [address] Physician Urology 10/28/19 Soren Perea MD [address] [facility] [place] [address] Physician Hematology/Oncology 11/21/21 Casey Castaneda MD [address] [place] [address] Cardiology 09/12/22 Rubber Goods Repairer Relationship Specialty Start Date End Date Yoan Sneed MD [address] [place] [address] PCP - General Family Medicine 07/30/19 Jian Rodriguez MD [address] [place] [address] Physician Urology 10/28/19 Soren Perea MD [address] [facility] [place] [address] Physician Hematology/Oncology 11/21/21 Casey Castaneda MD [address] [place] [address] Cardiology 09/12/22 Rubber Goods Repairer Relationship Specialty Start Date End Date Yoan Sneed MD [address] [place] [address] PCP - General Family Medicine 07/30/19 Jian Rodriguez MD [address] [place] [address] Physician Urology 10/28/19 Soren Perea MD [address] [facility] [place] [address] Physician Hematology/Oncology 11/21/21 Casey Castaneda MD [address] [place] [address] Cardiology 09/12/22 Rubber Goods Repairer Relationship Specialty Start Date End Date Yoan Sneed MD [address] [place] [address] PCP - General Family Medicine 07/30/19 Jian Rodriguez MD [address] [place] [address] Physician Urology 10/28/19 Soren Perea MD [address] [facility] [place] [address] Physician Hematology/Oncology 11/21/21 Casey Castaneda MD [address] [facility] 1 [place] [address] Cardiology 09/12/22 Rubber Goods Repairer Relationship Specialty Start Date End Date Yoan Sneed MD [address] [place] [address] PCP - General Family Medicine 07/30/19 Jian Rodriguez MD [address] [place] [address] Physician Urology 10/28/19 Soren Perea MD [address] [facility] [place] [address] Physician Hematology/Oncology 11/21/21 Casey Castaneda MD [address] [facility] 1 [place] [address] Cardiology 09/12/22 Rubber Goods Repairer Relationship Specialty Start Date End Date Yoan Sneed MD PCP - General Family Medicine 07/30/19 Jian Rodriguez MD [address] [place] [address] Physician Urology 10/28/19 Casey Castaneda MD [address] [facility] [address] [place] [address] Cardiology 09/12/22 Caesar Vazquez MD [address] [facility] [place] [address] Physician Hematology/Oncology 12/26/22 Mahesh So, RN [address] [facility] [place] [address] Specialty Enrollment Representative Hematology/Oncology 12/26/22 Patricia Conteh, SUPERINTENDENT MAINTENANCE.OUTSIDE MACHINIST [address] [facility] [address] [place], [place] [address] Nurse Practitioner Hematology/Oncology 12/26/22 Rubber Goods Repairer Relationship Specialty Start Date End Date Yoan Sneed MD PCP - General Family Medicine 07/30/19 Jian Rodriguez MD [address] [place] [address] Physician Urology 10/28/19 Casey Castaneda MD [address] [facility] [address] [place] [address] Cardiology 09/12/22 Caesar Vazquez MD [address] [facility] [place] [address] Physician Hematology/Oncology 12/26/22 Mahesh So, RN [address] [facility] [place] [address] Specialty Enrollment Representative Hematology/Oncology 12/26/22 Patricia Conteh, SUPERINTENDENT MAINTENANCE.OUTSIDE MACHINIST [address] [facility] [place] [address] Nurse Practitioner Hematology/Oncology 12/26/22 Rubber Goods Repairer Relationship Specialty Start Date End Date Yoan Sneed MD PCP - General Family Medicine 07/30/19 Jian Rodriguez MD [address] [place] [address] Physician Urology 10/28/19 Casey Castaneda MD [address] [facility] [address] [place] [address] Cardiology 09/12/22 Caesar Vazquez MD [address] [facility] [place] [place] [address] Physician Hematology/Oncology 12/26/22 Mahesh So, RN [address] [facility] [place] [place] [address] Specialty Enrollment Representative Hematology/Oncology 12/26/22 Patricia Conteh, MARSHA.OUTSIDE MACHINIST [address] [facility] [place] [place] [address] Nurse Practitioner Hematology/Oncology 12/26/22 Rubber Goods Repairer Relationship Specialty Start Date End Date Yoan Sneed MD PCP - General Family Medicine 07/30/19 Jian Rodriguez MD [address] [place] [address] Physician Urology 10/28/19 Casey Castaneda MD [address] [facility] 1 [place] [address] Cardiology 09/12/22 Caesar Vazquez MD [address] [facility] [place] [place] [address] Physician Hematology/Oncology 12/26/22 Mahesh So, RN [address] [facility] [place] [address] Specialty Enrollment Representative Hematology/Oncology 12/26/22 Patricia Conteh, SUPERINTENDENT MAINTENANCE.OUTSIDE MACHINIST [address] [facility] [place] [address] Nurse Practitioner Hematology/Oncology 12/26/22 Rubber Goods Repairer Relationship Specialty Start Date End Date Yoan Sneed MD PCP - General Family Medicine 07/30/19 Jian Rodriguez MD [address] [place] [address] Physician Urology 10/28/19 Casey Castaneda MD [address] [place] [address] Cardiology 09/12/22 Caesar Vazquez MD [address] [facility] [place] [address] Physician Hematology/Oncology 12/26/22 Mahesh So, SUNIL [address] [facility] [place] [address] Specialty Enrollment Representative Hematology/Oncology 12/26/22 Patricia Conteh, SUPERINTENDENT MAINTENANCE.OUTSIDE MACHINIST [address] [facility] [place] [address] Nurse Practitioner Hematology/Oncology 12/26/22 Rubber Goods Repairer Relationship Specialty Start Date End Date Yoan Sneed MD PCP - General Family Medicine 07/30/19 Jian Rodriguez MD [address] [place] [address] Physician Urology 10/28/19 Casey Castaneda MD [address] [place] [address] Cardiology 09/12/22 Caesar Vazquez MD [address] [facility] [place] [address] Physician Hematology/Oncology 12/26/22 Mahesh So, RN [address] [facility] [place] [address] Specialty Enrollment Representative Hematology/Oncology 12/26/22 Patricia Conteh, SUPERINTENDENT MAINTENANCE.OUTSIDE MACHINIST [address] [facility] [place] [address] Nurse Practitioner Hematology/Oncology 12/26/22 Rubber Goods Repairer Relationship Specialty Start Date End Date Yoan Sneed MD PCP - General Family Medicine 07/30/19 Jian Rodriguez MD Physician Urology 10/28/19 Casey Castaneda MD [address] [facility] [address] [place] [address] Cardiology 09/12/22 Caesar Vazquez MD [address] [facility] [place] [address] Physician Hematology/Oncology 12/26/22 Mahesh So, RN [address] [facility] [place] [address] Specialty Enrollment Representative Hematology/Oncology 12/26/22 Patricia Conteh, SUPERINTENDENT MAINTENANCE.OUTSIDE MACHINIST [address] [facility] [place] [address] Nurse Practitioner Hematology/Oncology 12/26/22 Rubber Goods Repairer Relationship Specialty Start Date End Date Yoan Sneed MD PCP - General Family Medicine 07/30/19 Jian Rodriguez MD Physician Urology 10/28/19 Casey Castaneda MD [address] [facility] [address] [place] [address] Cardiology 09/12/22 Caesar Vazquez MD [address] [facility] [place] [place] [place] [address] Physician Hematology/Oncology 12/26/22 Mahesh So, RN [address] [facility] [place] [address] Specialty Enrollment Representative Hematology/Oncology 12/26/22 Patricia Conteh, SUPERINTENDENT MAINTENANCE.[facility] [address] [facility] [place] [address] Nurse Practitioner Hematology/Oncology 12/26/22 Rubber Goods Repairer Relationship Specialty Start Date End Date Yoan Sneed MD PCP - General Family Medicine 07/30/19 Jian Rodriguez MD Physician Urology 10/28/19 Casey Castaneda MD [address] [facility] [address] [place] [address] Cardiology 09/12/22 Caesar Vazquez MD [address] [facility] [place] [address] Physician Hematology/Oncology 12/26/22 Mahesh So, RN [address] [facility] [place] [address] Specialty Enrollment Representative Hematology/Oncology 12/26/22 Patricia Conteh, SUPERINTENDENT MAINTENANCE.OUTSIDE MACHINIST [address] [facility] [address] Nurse Practitioner Hematology/Oncology 12/26/22 Rubber Goods Repairer Relationship Specialty Start Date End Date Yoan Sneed MD PCP - General Family Medicine 07/30/19 Jian Rodriguez MD Physician Urology 10/28/19 Casey Castaneda MD [address] [facility] [address] [place] [address] Cardiology 09/12/22 Caesar Vazquez MD [address] [place] [address] [place] [address] Physician Hematology/Oncology 12/26/22 Mahesh So, SUNIL [address] [place] [address] [place] [address] Specialty Enrollment Representative Hematology/Oncology 12/26/22 Patricia Conteh, SUPERINTENDENT MAINTENANCE.OUTSIDE MACHINIST [address] [place] [address] [place] [address] Nurse Practitioner Hematology/Oncology 12/26/22 Rubber Goods Repairer Relationship Specialty Start Date End Date Yoan Sneed MD PCP - General Family Medicine 07/30/19 Jian Rodriguez MD Physician Urology 10/28/19 Casey Castaneda MD [address] [facility] [address] [place] [address] Cardiology 09/12/22 Caesar Vazquez MD [address] [facility] [place] [place] [place] [address] Physician Hematology/Oncology 12/26/22 Mahesh So, RN [address] [facility] [place] [place] [address] Specialty Enrollment Representative Hematology/Oncology 12/26/22 Patricia Conteh APRN.[facility] [address] [facility] [place] [place] [place] [address] Nurse Practitioner Hematology/Oncology 12/26/22 Rubber Goods Repairer Relationship Specialty Start Date End Date Yoan Sneed MD PCP - General Family Medicine 07/30/19 Jian Rodriguez MD Physician Urology 10/28/19 Casey Castaneda MD [address] [facility] [address] [place] [address] Cardiology 09/12/22 Caesar Vazquez MD [address] [facility] [place] [place] [place] [address] Physician Hematology/Oncology 12/26/22 Mahesh So, RN [address] [facility] [place] [place] [place] [address] Specialty Enrollment Representative Hematology/Oncology 12/26/22 Patricia Conteh, SUPERINTENDENT MAINTENANCE.OUTSIDE MACHINIST [address] [facility] [place] [address] Nurse Practitioner Hematology/Oncology 12/26/22 Rubber Goods Repairer Relationship Specialty Start Date End Date Yoan Sneed MD PCP - General Family Medicine 07/30/19 Jian Rodriguez MD Physician Urology 10/28/19 Rubber Goods Repairer Relationship Specialty Start Date End Date Yoan Sneed MD PCP - General Family Medicine 07/30/19 Jian Rodriguez MD Physician Urology 10/28/19 Casey Castaneda MD [address] [facility] [address] [place] [address] Cardiology 09/12/22 Caesar Vazquez MD [address] [facility] [place] [address] Physician Hematology/Oncology 12/26/22 Mahesh So, SUNIL [address] [facility] [place] [address] Specialty Enrollment Representative Hematology/Oncology 12/26/22 Patricia Conteh, SUPERINTENDENT MAINTENANCE.OUTSIDE MACHINIST [address] [facility] [place] [address] Nurse Practitioner Hematology/Oncology 12/26/22 Rubber Goods Repairer Relationship Specialty Start Date End Date Yoan Sneed MD PCP - General Family Medicine 07/30/19 Jian Rodriguez MD Physician Urology 10/28/19 Casey Castaneda MD [address] [facility] [address] [place] [facility] [place] [phone] Cardiology 09/12/22 Caesar Vazquez MD [address] [place] [address] [place] [address] Physician Hematology/Oncology 12/26/22 Mahesh So, SUNIL [address] [facility] [address] Specialty Enrollment Representative Hematology/Oncology 12/26/22 Patricia Conteh APRN.OUTSIDE MACHINIST [address] [place] [address] [place] [address] Nurse Practitioner Hematology/Oncology 12/26/22 [employer] Goods Repairer Relationship Specialty Start Date End Date Yoan Sneed MD PCP - General Family Medicine 07/30/19 Jian Rodriguez MD Physician Urology 10/28/19 Casey Castaneda MD [address] [phone] Cardiology 09/12/22 Caesar Vazquez MD [address] [place] [address] [place] [address] Physician Hematology/Oncology 12/26/22 Mahesh So, SUNIL [address] [facility] [place] [address] Specialty Enrollment Representative Hematology/Oncology 12/26/22 Patricia Conteh, SUPERINTENDENT MAINTENANCE.OUTSIDE MACHINIST [address] [place] [address] [place] [address] Nurse Practitioner Hematology/Oncology 12/26/22 Rubber Goods Repairer Relationship Specialty Start Date End Date Yoan Sneed MD PCP - General Family Medicine 07/30/19 Jian Rodriguez MD Physician Urology 10/28/19 Casey Castaneda MD 5[address] [facility] [address] [place] [address] Cardiology 09/12/22 Caesar Vazquez MD [address] [place] [address] [place] [address] Physician Hematology/Oncology 12/26/22 Mahesh So, SUNIL [address] [facility] [place] [address] Specialty Enrollment Representative Hematology/Oncology 12/26/22 Patricia Conteh, SUPERINTENDENT MAINTENANCE.OUTSIDE MACHINIST [address] [place] [address] [place] [address] Nurse Practitioner Hematology/Oncology 12/26/22 Rubber Goods Repairer Relationship Specialty Start Date End Date Yoan Sneed MD PCP - General Family Medicine 07/30/19 Jian Rodriguez MD Physician Urology 10/28/19 Casey Castaneda MD [address] [facility] [address] [place] [phone] Cardiology 09/12/22 Caesar Vazquez MD [address] [facility] [place] [place] [address] Physician Hematology/Oncology 12/26/22 Mahesh So, SUNIL [address] [facility] [place] [place] [address] Specialty Enrollment Representative Hematology/Oncology 12/26/22 Patricia Conteh APRN.OUTSIDE MACHINIST [address] [facility] [place] [place] [address] Nurse Practitioner Hematology/Oncology 12/26/22 Rubber Goods Repairer Relationship Specialty Start Date End Date Yoan Sneed MD PCP - General Family Medicine 07/30/19 Jian Rodriguez MD Physician Urology 10/28/19 Casey Castaneda MD [address] [facility] [address] [place] [address] Cardiology 09/12/22 Caesar Vazquez MD [address] [facility] [place] [place] [address] Physician Hematology/Oncology 12/26/22 Mahesh So, SUNIL [address] [facility] [place] [address] Specialty Enrollment Representative Hematology/Oncology 12/26/22 Patricia Conteh, SUPERINTENDENT MAINTENANCE.OUTSIDE MACHINIST [address] [place] [address] [place] [address] Nurse Practitioner Hematology/Oncology 12/26/22 Rubber Goods Repairer Relationship Specialty Start Date End Date Yoan Sneed MD PCP - General Family Medicine 07/30/19 Jian Rodriguez MD Physician Urology 10/28/19 Casey Castaneda MD [address] [facility] [address] [place] [address] Cardiology 09/12/22 Caesar Vazquez MD [address] [place] [address] [place] [address] Physician Hematology/Oncology 12/26/22 Mahesh So, SUNIL [address] [facility] [place] [address] Specialty Enrollment Representative Hematology/Oncology 12/26/22 Patricia Conteh, SUPERINTENDENT MAINTENANCE.OUTSIDE MACHINIST [address] [place] [address] [place] [address] Nurse Practitioner Hematology/Oncology 12/26/22 Rubber Goods Repairer Relationship Specialty Start Date End Date Yoan Sneed MD PCP - General Family Medicine 07/30/19 Jian Rodriguez MD Physician Urology 10/28/19 Casey Castaneda MD 5[address] [facility] [address] [place] [address] Cardiology 09/12/22 Caesar Vazquez MD [address] [facility] [place] [place] [address] Physician Hematology/Oncology 12/26/22 Mahesh So, SUNIL [address] [facility] [place] [place] [address] Specialty Enrollment Representative Hematology/Oncology 12/26/22 Patricia Conteh, SUPERINTENDENT MAINTENANCE.OUTSIDE MACHINIST [address] [facility] [place] [place] [address] Nurse Practitioner Hematology/Oncology 12/26/22 Rubber Goods Repairer Relationship Specialty Start Date End Date Yoan Sneed MD PCP - General Family Medicine 07/30/19 Jian Rodriguez MD Physician Urology 10/28/19 Casey Castaneda MD [address] [facility] [address] [place] [address] Cardiology 09/12/22 Caesar Vazquez MD [address] [facility] [place] [place] [address] Physician Hematology/Oncology 12/26/22 Mahesh So, SUNIL [address] [facility] [place] [address] Specialty Enrollment Representative Hematology/Oncology 12/26/22 Patricia Conteh, SUPERINTENDENT MAINTENANCE.OUTSIDE MACHINIST [address] [facility] [place] [address] Nurse Practitioner Hematology/Oncology 12/26/22 Rubber Goods Repairer Relationship Specialty Start Date End Date Yoan Sneed MD PCP - General Family Medicine 07/30/19 Jian Rodriguez MD Physician Urology 10/28/19 Casey Castaneda MD [address] [facility] [address] [place] [address] Cardiology 09/12/22 Caesar Vazquez MD [address] [facility] [place] [address] Physician Hematology/Oncology 12/26/22 Mahesh So, SUNIL [address] [facility] [place] [address] Specialty Enrollment Representative Hematology/Oncology 12/26/22 Patricia Conteh, SUPERINTENDENT MAINTENANCE.OUTSIDE MACHINIST [address] [facility] [place] [address] Nurse Practitioner Hematology/Oncology 12/26/22 Rubber Goods Repairer Relationship Specialty Start Date End Date Yoan Sneed MD PCP - General Family Medicine 07/30/19 Jian Rodriguez MD Physician Urology 10/28/19 Casey Castaneda MD [address] [facility] [address] [place] [address] Cardiology 09/12/22 Caesar Vazquez MD [address] [facility] [place] [place] [address] Physician Hematology/Oncology 12/26/22 Mahesh So, SUNIL [address] [facility] [place] [address] Specialty Enrollment Representative Hematology/Oncology 12/26/22 Patricia Conteh APRN.OUTSIDE MACHINIST [address] [facility] [place] [address] Nurse Practitioner Hematology/Oncology 12/26/22 Rubber Goods Repairer Relationship Specialty Start Date End Date Yoan Sneed MD PCP - General Family Medicine 07/30/19 Jian Rodriguez MD Physician Urology 10/28/19 Casey Castaneda MD [address] [facility] 1 [place] [address] Cardiology 09/12/22 Caesar Vazquez MD [address] [facility] [place] [place] [address] Physician Hematology/Oncology 12/26/22 Mahesh So, SUNIL [address] [facility] [place] [address] Specialty Enrollment Representative Hematology/Oncology 12/26/22 Patricia Conteh, SUPERINTENDENT MAINTENANCE.OUTSIDE MACHINIST [address] [facility] [place] [address] Nurse Practitioner Hematology/Oncology 12/26/22 Rubber Goods Repairer Relationship Specialty Start Date End Date Yoan Sneed MD PCP - General Family Medicine 07/30/19 Jian Rodriguez MD Physician Urology 10/28/19 Casey Castaneda MD [address] [facility] [address] [place] [phone] Cardiology 09/12/22 Caesar Vazquez MD [address] [facility] [place] [address] Physician Hematology/Oncology 12/26/22 Mahesh So RN [address] [facility] [place] [address] Specialty Enrollment Representative Hematology/Oncology 12/26/22 Patricia Conteh, SUPERINTENDENT MAINTENANCE.OUTSIDE MACHINIST [address] [facility] [place] [address] Nurse Practitioner Hematology/Oncology 12/26/22 Rubber Goods Repairer Relationship Specialty Start Date End Date Yoan Sneed MD PCP - General Family Medicine 07/30/19 Jian Rodriguez MD Physician Urology 10/28/19 Casey Castaneda MD [facility] [facility] [address] [place] [address] Cardiology 09/12/22 Caesar Vazquez MD [address] [place] [address] Physician Hematology/Oncology 12/26/22 Mahesh So, SUNIL [address] [facility] [place] [place] [address] Specialty Enrollment Representative Hematology/Oncology 12/26/22 Patricia Conteh APRN.OUTSIDE MACHINIST [address] [facility] [place] [place] [address] Nurse Practitioner Hematology/Oncology 12/26/22 Rubber Goods Repairer Relationship Specialty Start Date End Date Yoan Sneed MD PCP - General Family Medicine 07/30/19 Jian Rodriguez MD Physician Urology 10/28/19 Casey Castaneda MD [address] [facility] [address] [place] [address] Cardiology 09/12/22 Caesar Vazquez MD [address] [facility] [place] [place] [address] Physician Hematology/Oncology 12/26/22 Mahesh So, SUNIL [address] [facility] [address] Specialty Enrollment Representative Hematology/Oncology 12/26/22 Patricia Conteh, SUPERINTENDENT MAINTENANCE.OUTSIDE MACHINIST [address] [facility] [address] Nurse Practitioner Hematology/Oncology 12/26/22 Rubber Goods Repairer Relationship Specialty Start Date End Date ChelseaMarilu OUTSIDE MACHINIST [address] [place] [address] PCP - General Nurse Practitioner 05/18/24 Jian Rodriguez MD Physician Urology 10/28/19 Casey Castaneda MD [address] [facility] [address] [place] [address] Cardiology 09/12/22 Caesar Vazquez MD [address] [facility] [place] [address] Physician Hematology/Oncology 12/26/22 Mahesh So, SUNIL [address] [facility] [place] [address] Specialty Enrollment Representative Hematology/Oncology 12/26/22 Patricia Conteh, SUPERINTENDENT MAINTENANCE.OUTSIDE MACHINIST [address] [facility] [place] [address] Nurse Practitioner Hematology/Oncology 12/26/22 Rubber Goods Repairer Relationship Specialty Start Date End Date Yoan Sneed MD PCP - General Family Medicine 07/30/19 05/17/24 Jian Rodriguez MD Physician Urology 10/28/19 Casey Castaneda MD [address] [facility] [address] [place] [address] Cardiology 09/12/22 Caesar Vazquez MD [address] [facility] [place] [place] [address] Physician Hematology/Oncology 12/26/22 Mahesh So, SUNIL [address] [facility] [place] [place] [address] Specialty Enrollment Representative Hematology/Oncology 12/26/22 Patricia Conteh APRN.OUTSIDE MACHINIST [address] [facility] [place] [address] Nurse Practitioner Hematology/Oncology 12/26/22 Rubber Goods Repairer Relationship Specialty Start Date End Date Yoan Sneed MD PCP - General Family Medicine 07/30/19 05/17/24 Jian Rodriguez MD Physician Urology 10/28/19 Casey Castaneda MD [address] [facility] [address] [place] [address] Cardiology 09/12/22 Caesar Vazquez MD [address] [facility] [place] [place] [address] Physician Hematology/Oncology 12/26/22 Mahesh So, SUNIL [address] [facility] [place] [address] Specialty Enrollment Representative Hematology/Oncology 12/26/22 Patricia Conteh, SUPERINTENDENT MAINTENANCE.OUTSIDE MACHINIST [address] [place] [address] [place] [address] Nurse Practitioner Hematology/Oncology 12/26/22 Rubber Goods Repairer Relationship Specialty Start Date End Date Marilu Roach OUTSIDE MACHINIST [address] [facility] [place] [address] PCP - General Nurse Practitioner 05/18/24 Jian Rodriguez MD Physician Urology 10/28/19 Casey Castaneda MD [address] [facility] Er [address] [place] [address] Cardiology 09/12/22 Caesar Vazquez MD [address] [place] [address] [place] [address] Physician Hematology/Oncology 12/26/22 Mahesh So, SUNIL [address] [facility] [place] [address] Specialty Enrollment Representative Hematology/Oncology 12/26/22 Patricia Conteh, SUPERINTENDENT MAINTENANCE.OUTSIDE MACHINIST [address] [place] [address] [place] [address] Nurse Practitioner Hematology/Oncology 12/26/22 Rubber Goods Repairer Relationship Specialty Start Date End Date Yoan Sneed MD PCP - General Family Medicine 07/30/19 05/17/24 Jian Rodriguez MD Physician Urology 10/28/19 Casey Castaneda MD [address] [place] [address] Cardiology 09/12/22 Caesar Vazquez MD [address] [place] [address] [place] [address] Physician Hematology/Oncology 12/26/22 Mahesh So, SUNIL [address] [facility] [address] Specialty Enrollment Representative Hematology/Oncology 12/26/22 Patricia Conteh APRN.OUTSIDE MACHINIST [address] [facility] [address] Nurse Practitioner Hematology/Oncology 12/26/22 Rubber Goods Repairer Relationship Specialty Start Date End Date Yoan Sneed MD PCP - General Family Medicine 07/30/19 05/17/24 Jian Rodriguez MD Physician Urology 10/28/19 Casey Castaneda MD [address] [place] [address] Cardiology 09/12/22 Caesar Vazquez MD [address] [facility] [place] [address] Physician Hematology/Oncology 12/26/22 Mahesh So, RN [address] [facility] [place] [address] Specialty Enrollment Representative Hematology/Oncology 12/26/22 Patricia Conteh, SUPERINTENDENT MAINTENANCE.OUTSIDE MACHINIST [address] [place] [address] [place] [address] Nurse Practitioner Hematology/Oncology 12/26/22 Rubber Goods Repairer Relationship Specialty Start Date End Date Chelsea, Marilu Nelson CNP [address] [facility] [place] [address] PCP - General Nurse Practitioner 05/18/24 Jian Rodriguez MD Physician Urology 10/28/19 Casey Castaneda MD [address] [facility] Er [address] [place] [address] [place] [address] Cardiology 09/12/22 Caesar Vazquez MD [address] [place] [address] [place] [address] Physician Hematology/Oncology 12/26/22 Mahesh So, SUNIL [address] [facility] [place] [address] Specialty Enrollment Representative Hematology/Oncology 12/26/22 Patricia Conteh, SUPERINTENDENT MAINTENANCE.OUTSIDE MACHINIST [address] [place] [address] [place] [address] Nurse Practitioner Hematology/Oncology 12/26/22 Rubber Goods Repairer Relationship Specialty Start Date End Date Marilu Roach, SUPERINTENDENT MAINTENANCE - OUTSIDE MACHINIST [address] [facility] [place] [address] PCP - General Family Nurse Practitioner 04/21/24 Rubber Goods Repairer Relationship Specialty Start Date End Date Marilu Roach, SUPERINTENDENT MAINTENANCE - OUTSIDE MACHINIST [address] [place] [address] PCP - General Family Nurse Practitioner 04/21/24 Rubber Goods Repairer Relationship Specialty Start Date End Date Marilu Roach OUTSIDE MACHINIST [address] [facility] [place] [address] PCP - General Nurse Practitioner 05/18/24 Jian Rodriguez MD Physician Urology 10/28/19 Casey Castaneda MD 5[address] [facility] [address] [place] [address] Cardiology 09/12/22 Caesar Vazquez MD [address] [place] [address] [place] [address] Physician Hematology/Oncology 12/26/22 Mahesh So, SUNIL [address] [facility] [place] [address] Specialty Enrollment Representative Hematology/Oncology 12/26/22 Patricia Conteh APRN.OUTSIDE MACHINIST [address] [place] [address] [place] [address] Nurse Practitioner Hematology/Oncology 12/26/22 Rubber Goods Repairer Relationship Specialty Start Date End Date Might, Marilu W, SUPERINTENDENT MAINTENANCE - OUTSIDE MACHINIST [address] [facility] [place] [address] PCP - General Family Nurse Practitioner 04/21/24 Rubber Goods Repairer Relationship Specialty Start Date End Date Marilu Roach SUPERINTENDENT MAINTENANCE - OUTSIDE MACHINIST [address] [facility] [place] [address] PCP - General Family Nurse Practitioner 04/21/24 Rubber Goods Repairer Relationship Specialty Start Date End Date Marilu Roach OUTSIDE MACHINIST [address] [place] [address] PCP - General Nurse Practitioner 05/18/24 Jian Rodriguez MD Physician Urology 10/28/19 Casey Castaneda MD [address] [place] [address] Cardiology 09/12/22 Caesar Vazquez MD [address] [place] [address] [place] [address] Physician Hematology/Oncology 12/26/22 Patricia Conteh APRN.OUTSIDE MACHINIST [address] [place] [address] [place] [address] Nurse Practitioner Hematology/Oncology 12/26/22 Rubber Goods Repairer Relationship Specialty Start Date End Date Marilu Roach APRN-OUTSIDE MACHINIST [address] [facility] [place] [address] PCP - General Family Medicine 04/20/25 Rubber Goods Repairer Relationship Specialty Start Date End Date Marilu Roach APRN-OUTSIDE MACHINIST [address] [facility] [place] [address] PCP - General Family Medicine 04/20/25 Rubber Goods Repairer Relationship Specialty Start Date End Date Chelsea [facility] [address] [place] [address] PCP - General [facility] Medicine 04/20/25 Rubber Goods Repairer Relationship Specialty Start Date End Date [facility]Marilu [facility] [address] [facility] [place] [address] PCP - General [facility] Medicine 04/20/25 Rubber Goods Repairer Relationship Specialty Start Date End Date Chelsea Marilupatsy Nelson [facility] [address] [facility] [place] [address] PCP - General Family Medicine 04/20/25 Inactive Administered Medications - up to 3 [...] Bag/Syringe/Bottle 11/29/2023 2:16 PM EST 200 mg Scheduled Active and Recently Administ ered Medications (unrecognized section and content) Medication Order 03/20/2024 03/21/2024 03/22/2024 aspirin chewable tablet 324 mg (COMPLETED) 324 mg, Oral, ONCE, 1 dose, On Sat03/22/24 at 1900 1912 (Given - Provid er: Beverly Tapia RN) PRN Medication Order 03/20/2024 03/21/2024 03/22/2024 iopamidol (ISOVUE-370) 76 % injection 75 mL 75 mL, IntraVENous, IMG ONCE PRN, 1 dose, Starting on 03/22/24 at 1836, Until Discontinued, Other 1846 (Incomplete - P rovider: Chelle Ryan) FOR RECORDS PERTAINING TO PATIENTS WHO ARE [...] BE BASED ON THE PRIMARY CLINICAL RECORDS. [email or web address] provides no warranty or guarantee of the accuracy or completeness of information in this document.
== END 2025-07-06 08:19 | disposition home or self-care (01) ==
LOC: CARD 08:18
PROVIDERS: Visit Provider Internal Medicine Interventional Cardiology
DX: I50.32 Chronic diastolic (congestive) heart failure (principal)
CPT/HCPCS: 93306; 93356

== ENCOUNTER 2025-09-01 09:12 | Outpatient (OUT) | payer MEDICARE, SELFPAY ==
--- OUTSIDE RECORDS SUMMARY | 2024-02-24 07:15 | XMS_ITS ---
Author Organization [facility] in [place] Address [address] [place] [address] Care Team Providers Care Tax Adjuster Name Role Phone None, Unknown or Primary Care Provider Unavailab SERGIO Bradley Unavailable [phone] REASON FOR VISIT 3 mos f/u Encounters Encounter Location Date Provider Diagnosis [address] [address] 02/24/2024 SERGIO ANDERSON Plan Of Treatment No Information Progress Notes * DANIEL Juan Jose BDOB:1940 ([age] yo M)Acc No.[id number]:02/24/2024 UNLOCKED PROGRESS NOTE Progress Note Patient: Juan Jose DEL VALLE :?Sergio Anderson M.D.:1940???Age:83 Y ???Sex:MaleDate:4Phone:[phone]:[address] [place] [address], [place], [id number]:Unknown or None Subjective: * Chief Complaints: * 1 . 3 mos f/u. * Medical History: Objective: * Vitals: Assessment: Plan: * Treatment: * * Electronic signature of SERGIO ANDERSON MD on 08/09/2025 at 06:48 AM EDTSign off status: PendingVisit Status:?CANCPHONE (Cancelled Phone) * Provider: Marisabel Anderson M.D. Date: 0 02/24/2024 Generated for Printing/Faxing/eTransmitting on:?08/09/2025 06:48 AM EDT
--- OUTSIDE RECORDS SUMMARY | 2025-08-09 06:49 | XMS_ITS | Clinical Summary ---
Author Organization [facility] Address [address] [place] [address] Care Team Providers Care Ornamenter Hand Name Role Phone Faheem Tran MD Primary Care Provider [phone] Allergies Active AllergyReactionsCriticalityNoted DateCommentsAdhesiveRash,OtherMedium 07/14/2018 Other reaction(s): Severe Blisters WydouofjPeqxfpdOnr87/23/2024 Medications MedicationSigDispense QuantityRefillsLast FilledStart DateEnd DateStatus omeprazole (PriLOSEC) [address] capsule Take 1 capsule twice a day by oral route for 90 days.Active potassium chloride ER (Micro-K) 10 mEq ER capsule Take 10 mEq by mouth in the morning and at bedtime.Active tamsulosin (Flomax) 0.4 mg 24 hr capsule Take 0.4 mg by mouth in the morning.Active pembrolizumab (Keytruda) 25 mg/mL chemo injection Infuse into a venous catheter 1 (one) time.Active ferrous sulfate 325 (65 Fe) MG tablet Take 65 mg by mouth every other day.Active levothyroxine (Synthroid) 25 mcg tablet 1 (one) time each day at the same time.06/12/2023ctive hyoscyamine (Levsin) 0.125 mg/5 mL elixir Take 125 mcg by mouth every 4 (four) hours if needed for bladder spasms.Active cranberry fruit (cranberry) 450 mg tablet Take 1 capsule by mouth in the morning.Active glucosamine/chondroitin weber A/C (QQYFYNTZGOP-JSBDAWTQRXP-BZT C ORAL) Take 1 capsule by mouth in the morning.Active magnesium oxide (Mag-Ox) 400 mg tablet Take 400 mg by mouth in the morning.Active multivitamin tablet Take 1 tablet by mouth in the morning.Active ondansetron ODT (Zofran-ODT) 4 mg disintegrating tablet Take 4 mg by mouth if needed in the morning, at noon, in the evening, and at bedtime for nausea or vomiting.Active Lactobacillus acidophilus 0.5 mg (100 million cell) tablet Take by mouth.Active pantoprazole (ProtoNix) 40 mg EC tablet Take 1 tablet by mouth at bedtime.Active metoprolol succinate XL (Toprol-XL) 50 mg 24 hr tablet Indications:Chronic systolic heart failure (CMS/HCC)TAKE 1 TABLET BY MOUTH EVERY MORNING *DO NOT CRUSH OR CHEW* 90 tablet 5Active liothyronine (Cytomel) 5 mcg tablet Take 5 mcg by mouth in the morning.5Active aspirin 81 mg EC tablet Indications:DyslipidemiaTake 1 tablet (81 mg) by mouth once daily as directed. 90 tablet 5Active balsalazide (Colazal) 750 mg capsule Indications:Ulcerative pancolitis (CMS/HCC)Take 1 capsule (750 mg) by mouth three times daily. 270 capsule 5Active furosemide (Lasix) 40 mg tablet Indications:Heart failure with improved ejection fraction (HFimpEF) (CMS/HCC) TAKE 1 TABLET BY MOUTH EVERY MORNING 90 tablet 5Active atorvastatin (Lipitor) 80 mg tablet Indications:Angina pectoris, unstable (CMS/HCC)TAKE 1 TABLET BY MOUTH IN THE MORNING 90 tablet 5Active losartan (Cozaar) 25 mg tablet Indications:Primary hypertension,Chronic systolic heart failure (CMS/HCC)Take 1 tablet (25 mg) by mouth in the morning. 90 tablet /6Active hydrALAZINE (Apresoline) 25 mg tablet Indications:Primary hypertension,Chronic systolic heart failure (CMS/HCC)Take 1 tablet (25 mg) by mouth three times daily. 270 tablet /6Active isosorbide dinitrate (Isordil) 10 mg tablet Indications:Primary hypertension,Chronic systolic heart failure (CMS/HCC)Take 1 tablet (10 mg) by mouth three times daily. 270 tablet 310ctive losartan (Cozaar) 50 mg tablet Take 50 mg by mouth in the morning and at bedtime.07/19/2025Discontinued(Dose adjustment) amLODIPine (Norvasc) 5 mg tablet Indications:Essential hypertensionTake 1 tablet (5 mg) by mouth in the morning. 90 tablet 312Discontinued(Ineffective) hydrALAZINE (Apresoline) 25 mg tablet Indications:Chronic systolic heart failure (CMS/HCC)TAKE ONE TABLET BY MOUTH THREE TIMES A DAY (MORNING, NOON AND BEDTIME) 270 tablet Discontinued(Reorder) isosorbide mononitrate ER (Imdur) 30 mg 24 hr tablet Indications:Coronary artery disease involving [place] coronary artery of [place] heart without angina pectorisTAKE 1 TABLET BY MOUTH DAILY DIRECTED. DO NOT CRUSH OR CHEW 90 tablet Discontinued(Ineffective) Active Problems ProblemNoted DateDiagnosed DateAbdominal pain07/16/2025bnormal results of cardiovascular function gphzfmt5907/16/2025enign prostatic otygiefdkia61/03/2025 Cgubauwlhdh18/03/5493Ulvpjpdwqqb10/03/2025Depressed left ventricular ejection fnlblddo69/03/2025Dry mouth07/16/20250326Etzwnsbqg86/03/2025Encounter for follow-up examination after completed treatment for malignant zrvegzee82/03/2025History of primary malignant neoplasm of urinary acftws1007/16/20256868Kvsnulqpgmnysc86/03/2025 Iron deficiency svckes9607/16/2025Liver disease, bdkypykrizp40/03/2025Presence of cardiac yhtenkdpn28/03/2025Severe protein-calorie malnutrition (Aj: less than 60% of standard weight)07/16/2025Urothelial bwygtwvnc16/03/2025Vomiting 07/16/2025hest wall ulcer, with fat layer muzdaeh1305/17/2025Nonhealing nonsurgical wound with fat layer jsfbzld9905/03/2025Open wound of left chest wall 04/22/2025Surgical wound fdnjyka5804/22/2025Infection of pacemaker pocket 01/19/2025Pre-operative cardiovascular okstrcazdpm32/13/2024 Assessment & Plan (06/26/2024 11:02 AM EDT): From a cardiology perspective patient may proceed with planned EGD and colonoscopy he is low to moderate risk for low risk procedure, he may hold Plavix 5 to 7 days prior to procedure, please do not hold aspirin unless absolutely necessary thank you Congenital tnviljhnuhfvqj31/11/2024acemaker complications, initial encounter 02/05/2024Syncope and oyynchqt38/02/2023 Assessment & Plan (03/15/2023 1:08 PM EDT): Reviewed with Dr Reddy and he recommended perm Pacemaker- orders sent and d/w pt and daughter= provided pt education pamphlet for Pacemaker that reviewed indications, risks vs benefits of procedure and pt voiced understanding and is agreeable with proceeding with PPM High-grade atrioventricular block03/15/2023 Overview (03/15/2023): Added automatically from request for surgery [id number] Assessment & Plan (05/05/2023 10:58 PM EDT): -s/p DC PPM -device check stable Assessment & Plan (03/15/2023 1:06 PM EDT): Noted bradycardia, with 1st AV block, 2:1 AV block, NSVT 3 and 5 beat run with syncopal episode andnear syncopal episodes. Pt is unsure if he has stopped toprol- therefore d/w them to stop Toprol. D/W Dr Reddy and plan for perm pacemaker implant MONTRELL in light of syncope CKD (chronic kidney disease)12/03/2022ross rcoznuoib57/01/2023Obesity, Class I, BMI 30-34.9003/27/2022Malignant neoplasm of urinary eynrswb0311/10/2021KI (acute kidney injury)11/01/2021Hypertensive heart disease with heart hjrbyeb1707/11/2021 Overview (03/15/2023): Last Assessment & Plan: -BP elevated in office 171/70, 170/72, patient reports he has not taken any of his medications yet today -denies cardiac symptoms -EF 55% on echo 02/2022 scanned into [facility] -on hydralazine, losartan, isosorbide dinitrate, and Jardiance -follows with cardiology, dr. Keven Castaneda, requested most recent office note Assessment & Plan (06/26/2024 11:02 AM EDT): Blood pressure well-controlled Continue all current medications including Toprol, losartan, Imdur, hydralazine Nlqoilfysgjeuq08/18/2019Ulcerative wuxsoolihm57/29/2019 Overview (03/15/2023): Last Assessment & Plan: -stable on rx Stage 3 chronic kidney vahinpf8108/11/2019 Overview (03/15/2023): Last Assessment & Plan: -labs pending Gastro-esophageal reflux disease without enbirwbdjss96/28/2019 Overview (03/15/2023): Last Assessment & Plan: -stable on PPI Malignant neoplasm of kidney excluding renal mdneul9007/29/2019 Overview (03/15/2023): Last Assessment & Plan: -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, present since 2019, s/p URS and laser ablation, tumor recurrence andhas been getting chemo (last dose a few months ago), now scheduled for surgery Hypertensive shrfyexj32/24/2019 Assessment & Plan (03/15/2023 1:06 PM EDT): Hypertension is controlled Continue med regime Acquired absence of jvhskl4407/18/2018Malignant neoplasm of etpkci9807/07/2018HLD (hyperlipidemia)11/22/2017Essential yjlrhmqlxmeq92/22/2017 Assessment & Plan (05/05/2023 10:55 PM EDT): -stable -ct meds Mspoflzypevn65/22/2017Chronic systolic heart failure Assessment & Plan (06/26/2024 11:22 AM EDT): Currently euvolemic without exacerbation [place] heart class II Continue GDMT, aspirin, Lipitor, Toprol and Lasix daily for diuretic therapy Overall patient is doing very well no acute concerns today Assessment & Plan (05/05/2023 10:58 PM EDT): - NYHA I-2 GDMT: Losartan 50 mg, Toprol-XL 25 mg, Isordil 20 mg twice daily, hydralazine 25 mg 3 times daily, Lasix 20 mg daily, Lipitor 10 mg daily, aspirin 81 mg, amlodipine 10 mg -pending repeat echo, previously echo 04/05 EF 48% Atrial flutter Overview (06/26/2024): Per Dr Castaneda: He had a hospital admission in February 2022 that was triggered by dehydration and volume depletion. He has recovered. In that setting he developed atrial flutter. He was previously evaluated by Dr. Jimbo Reddy from electrophysiology and recommended loop recorder but he did not want toproceed with that. There has not been any recurrence of atrial flutter. He then underwent pacemakerplacement due to syncope and high-grade AV block. The RV lead was malfunctioning and was replaced on 02/05/[address] Jimbo Reddy. There has been no recurrence of atrial flutter on recent device checks. His underlying rhythm is complete heart block. Assessment & Plan (06/26/2024 11:21 AM EDT): DLV5LY6-VOCd= 5-age, heart failure, hypertension, CAD/vascular disease A-flutter occurred in 2021 in acute setting of dehydration and no reoccurrence noted from device interrogations-therefore per Dr. Castaneda and Dr. Reddy no anticoagulation at this time especially in patient has had hematuria and bleeding problems. Continue Toprol Assessment & Plan (05/05/2023 10:59 PM EDT): -hx of flutter -not on ac , on aspirin Does not want AC -no flutter since recommended for ablation per documentation -will monitor device for arrhythmia Resolved Problems ProblemNoted DateDiagnosed DateResolved DateSevere protein-calorie malnutrition Mild protein-calorie xgvajnkvdqaq39NSTEMI (non-ST elevated myocardial infarction)/ngina pectoris, ikbhirvd98/ Encounters DateTypeDepartmentCare DnhbXwetgrgarzz64/06/2025 9:15 AM EDTOffice Visit [place] [address] [place] [address] Keven Castaneda MD Chronic systolic heart failure (CMS/HCC) (Primary Dx); Coronary artery disease involving [place] coronary artery of [place] heart without angina pectoris; Primary hypertension; Complete heart block (CMS/HCC); Cardiac pacemaker in situ; Stage 3b chronic kidney disease (CMS/HCC)07/06/2025Orders Only [place] [address] [place] [address] ProviderOlayinka MD 06/30/2025 10:45 AM EDTAncillary Procedure [address] [address] Encounter for implantable defibrillator reprogramming or check05/14/2025 3:20 PM EDTTelemedicine [facility] [address], [address] [place] [address] Celestine Johnson CNP Follow-up exam after treatment (Primary Dx); Infection of pacemaker pocket, sequela; MSSA (methicillin susceptible Staphylococcus aureus) ousqqvfme03/01/2025 Telephone [facility] Infect[facility] Disease [address], [address] [place] [address] Celestine Johnson CNP from Last 3 Months Immunizations ImmunizationAdministration DatesNext XndLDF4702/26/2022Influenza, intradermal, quadrivalent, preservative free08/09/2015Pneumococcal Conjugate PCV 13001/07/2015 Pneumococcal Polysaccharide AMM901102/13/2013Td (adult), 5 Lf tetanus toxoid, preservative free, pebfqpwy78/04/2013Zoster, Ybnrjnrezyi48/30/2023 Family History Medical HistoryRelationNameCommentsLung cancerFatherHeart failureMotherRelation NameStatusCommentsFatherDeceasedMotherDeceased Social History Tobacco UseTypesPacks/DayYears UsedDateSmoking Tobacco: FormerCigarettesQuit: 1980Smokeless Tobacco: Never Tobacco Cessation:Counseling Given: Not Answered Alcohol UseStandard Drinks/WeekCommentsNot Currently0 (1 standard drink = 0.6 oz pure alcohol)[facility] UtilitiesAnswerDate RecordedIn the past 12 months has the [employer], gas, oil, or water [employer] threatened to shut off services in your home?No03/23/2024Humiliation, Afraid, Rape, and Kick questionnaireAnswerDate RecordedWithin the last year, have you been afraid of your partner or ex-partner?06/11/2024Within the last year, have you been humiliated or emotionally abused in other ways by your partner or ex-partner?No06/11/2024 Within the last year, have you been kicked, hit, slapped, or otherwise physically hurt by your partner or ex-partner?06/11/2024Within the last year, have you been raped or forced to have any kind of sexual activity by your part ner or ex-partner?No06/11/2024Overall Financial Resource Strain (CARDIA)Answer Date RecordedHow hard is it for you to pay for the very basics like food, housing, medical care, and heating?Not very hard03/23/2024HQ-2AnswerDate 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 Health Questionnaire-2 Wjbqw876TransportationAnswerDate RecordedIn the past 12 months, has lack of transportation kept you from medical appointments or from getting medications?No03/23/2024Lack of Transportation (Non-Medical)Not on file03/23/2024Housing Stability Vital SignAnswerDate RecordedUnable to Pay for Housing in the Last YearNot on file03/23/2024Number of Places Lived in the Last YearNot on file03/23/2024In the last 12 months, was there a time when you did not have a steady place to sleep or slept in ashelter (including now)?No03/23/2024Hunger Vital SignAnswerDate RecordedWithin the past 12 months, you worried that your food would run out before you got the money to buymore.Never true03/23/2024an Out of Food in the Last YearNot on file 03/23/2024Sex and Gender InformationValueDate RecordedSex Assigned at BirthMale 02/05/2024 10:53 AM EDTLegal NotIset1104/12/2022 12:06 AM EDTGender IdentityMale 02/05/2024 10:53 AM EDTSexual OrientationHeterosexual or Ezwstfyp74/24/2024 10:53 AM EDT Last Filed Vital Signs Vital SignReadingTime TakenCommentsBlood Rlizawmj826/7207/19/2025 9:05 AM EDT Phlyy728007/19/2025 9:05 AM UNRKvnqjhqyfym12.2 ??C (97.2 ??F)04/19/2025 10:00 AM EDTRespiratory Ryhf834404/19/2025 3:11 PM EDTOxygen Rstxznfawr24%07/19/2025 9:05 AM EDTInhaled Oxygen Concentration--Hdjqjj15.2 kg (168 lb)07/19/2025 9:05 AM EDT Lyituq581.6 cm (5' 4 )07/19/2025 9:05 AM EDTBody Mass Index28.8407/19/2025 9:05 AM EDT Plan of Treatment DateTypeDepartmentCare Team (Latest Contact Info)Wkmkulywcia21/16/2025 9:00 AM ESTAncillary Procedure [facility] [place] [address] [place] [address] Health MaintenanceDue DateLast DoneCommentsMedicare Annual Wellness (AWV) 1939Depression Htpwfzake75/12/1951dult Caicjku86/01/2013Zoster Vaccines (2 of 2)OVID-19 Vaccine ( - season) /12/2020, 11/26/2020, 11/05/2020Influenza Vaccine (#1)2025 07/22/2023, 08/09/2015Fall Risk Sjivimwyw51Pneumococcal Vaccine: 50+ YtmepZsuwycuou88/27/2015, 02/13/2013HIB VaccinesAged OutNo longer eligible based on patient's age to complete this topicHPV VaccinesAged OutNo longer eligible based on patient's age to complete this topicIPV VaccinesAged OutNo longer eligible based on patient's age to complete this topicMeningococcal B VaccineAged OutNo longer eligible based on patient's age to complete this topicMeningococcal VaccineAged OutNo longer eligible based on patient's age to complete this topicRotavirus VaccinesAged OutNo longer eligible based on patient's age to complete this topic Medical Devices ImplantedTypeAreaManufacturerDevice IdentifierShelf Expiration DateModel / Serial / LotIngevity+ Is-1 Bi Positive Fix Ra/Rv 52cm Implanted:Qty: 1 on 03/18/2023 by Jimbo Reddy MD at [facility] Eaufbapwzv38/18/[id number] / [id number] / Ingevity+ Is-1 Bi Positive Fix Ra/Rv 59cm Implanted:Qty: 1 on 03/18/2023 by Jimbo Reddy MD at [facility] Cojwjfmisp72/25/[id number] / [id number] / Ingevity+ Is-1 Bi Positive Fix Ra/Rv 59cm Implanted:Qty: 1 on 02/05/2024 by Jimbo Reddy MD at [facility] Caijuomwtn29/07/[id number] / [id number] / Pacer,Accolade,Mri Dr Perez - [id number] - [id number] Implanted:Qty: 1 on 03/18/2023 by Jimbo Reddy MD at [id number]/07/2025L331 / [id number] / Procedures Procedure NamePriorityDate/TimeAssociated DiagnosisCommentsCOMPLETE TRANSTHORACIC ECHO (TTE) W/WO IMAGING AGENT, STRAIN, 3D, BUBBLE STUDYRoutine 07/06/2025 2:58 PM EDTCARDIAC DEVICE CHECK - IN CLINIC - LEADLESS PACER W/ PROG Llehrbg8107/01/2025 9:35 AM EDT Encounter for implantable defibrillator reprogramming or check from Last 3 Months Results * Complete Echo (TTE) w/wo Imaging Agent, Strain, 3D, Bubble Study (07/06/2025 2:58 PM EDT)Anatomical RegionLateralityModalityUltrasound Narrative Authorizing ProviderResult TypeResult StatusHistorical Provider [facility] ECHO PROCEDURESFinal Result * CARDIAC DEVICE CHECK - IN CLINIC - LEADLESS PACER W/ PROG (07/01/2025 9:35 AM EDT)Anatomical RegionLateralityModalityOtherSpecimen (Source)Anatomical Location / LateralityCollection Method / VolumeCollection TimeReceived Time Narrative 07/06/2025 9:54 AM EDT By using the attestations below, the signing clinician agrees that I have read and verify that the documentation has been personally reviewed by me and ensure that the documentation accurately reflects the encounter. Routine EP device follow up as per schedule. Please see attached note Authorizing ProviderResult TypeResult StatusPalolis Reddy [facility] IMPLANTABLE CARDIAC DEVICE PROCEDURESFinal Result from Last 3 Months Insurance Advance Directives * Full Code (Latest Code Status on File) Date ActivatedDate InactivatedComments03/25/2024 3:20 PM03/26/2024 4:45 PM * DNR CC-A Date ActivatedDate InactivatedComments03/24/2024 10:09 AM03/25/2024 3:20 PM QuestionAnswerCommentsSelect If Any Apply:* With Intubation * DNR CC Date ActivatedDate InactivatedComments03/23/2024 2:57 AM03/24/2024 10:09 AM * DNR CC-A Date ActivatedDate InactivatedComments03/23/2024 2:39 AM03/23/2024 2:57 AMQuestion AnswerCommentsSelect If Any Apply:* No Intubation * Full Code Date ActivatedDate InactivatedComments02/05/2024 12:37 PM02/07/2024 5:07 PM Care Teams Team MemberRelationshipSpecialtyStart DateEnd Date Faheem Tran MD [address] [place] [address] PCP - GeneralNurse Practitioner04/09/24
--- OUTSIDE RECORDS SUMMARY | 2025-08-09 06:49 | XMS_ITS ---
Author Organization [facility] Address [address] [place] [place] [address] Care Team Providers Care Lacquer Pin Press Operator Name Role Phone Faheem Tran MD Primary Care Provider [phone] Active Problems ProblemNoted DateDiagnosed DateAbdominal pain07/16/2025bnormal results of cardiovascular function fgytkmv2307/16/2025enign prostatic ibujlizlbao61/03/2025 Jwsrszeftoa92/03/3042Aahhcjuujbu70/03/2025Depressed left ventricular ejection brxbsyzu79/03/2025Dry mouth07/16/20251367Xobqxyihc36/03/2025Encounter for follow-up examination after completed treatment for malignant dwlydugw53/03/2025History of primary malignant neoplasm of urinary cfgiie6607/16/20252826Mjrrdcsrmrmrff82/03/2025 Iron deficiency fepefx9507/16/2025Liver disease, gwqdbuwvmty53/03/2025Presence of cardiac spihwvzhk58/03/2025Severe protein-calorie malnutrition (Aj: less than 60% of standard weight)07/16/2025Urothelial iayojhdpq42/03/2025Vomiting 07/16/2025hest wall ulcer, with fat layer jkfzuwi5505/17/2025Nonhealing nonsurgical wound with fat layer kccvwkv7405/03/2025Open wound of left chest wall 04/22/2025Surgical wound unobjui7804/22/2025Infection of pacemaker pocket 01/19/2025Pre-operative cardiovascular aqsqmusdwis01/13/2024 Assessment & Plan (06/26/2024 11:02 AM EDT): From a cardiology perspective patient may proceed with planned EGD and colonoscopy he is low to moderate risk for low risk procedure, he may hold Plavix 5 to 7 days prior to procedure, please do not hold aspirin unless absolutely necessary thank you Congenital foiwzxalvhsufz55/11/2024acemaker complications, initial encounter 02/05/2024Syncope and pzroytad79/02/2023 Assessment & Plan (03/15/2023 1:08 PM EDT): Reviewed with Dr Reddy and he recommended perm Pacemaker- orders sent and d/w pt and daughter= provided pt education pamphlet for Pacemaker that reviewed indications, risks vs benefits of procedure and pt voiced understanding and is agreeable with proceeding with PPM High-grade atrioventricular block03/15/2023 Overview (03/15/2023): Added automatically from request for surgery [id number] Assessment & Plan (05/05/2023 10:58 PM EDT): [...] light of syncope CKD (chronic kidney disease)12/03/2022ross /01/2023Obesity, Class I, BMI 30-34.9003/27/2022Malignant neoplasm of urinary zgjiwvi2611/10/2021KI (acute kidney injury)11/01/2021Hypertensive heart disease with heart zhdpjdy5807/11/2021 Overview (03/15/2023): Last Assessment & Plan: -BP elevated in office 171/70, 170/72, patient reports he has not taken any of his medications yet today -denies cardiac symptoms -EF 55% on echo 02/2022 scanned into [facility] -on hydralazine, losartan, isosorbide dinitrate, and Jardiance -follows with cardiology, dr. Keven Castaneda, requested most recent office note Assessment & Plan (06/26/2024 11:02 AM EDT): Blood pressure well-controlled Continue all current medications including Toprol, losartan, Imdur, hydralazine Grmwpklksqrsmg03/18/2019Ulcerative jrludvtgjw27/29/2019 Overview (03/15/2023): Last Assessment & Plan: -stable on rx Stage 3 chronic kidney rnrwtik8608/11/2019 Overview (03/15/2023): Last Assessment & Plan: -labs pending Gastro-esophageal reflux disease without uquvjimqbxj57/28/2019 Overview (03/15/2023): Last Assessment & Plan: -stable on PPI Malignant neoplasm of kidney excluding renal opgxpm7207/29/2019 Overview (03/15/2023): Last Assessment & Plan: -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, present since 2019, s/p URS and laser ablation, tumor recurrence andhas been getting chemo (last dose a few months ago), now scheduled for surgery Hypertensive kprirozl14/24/2019 Assessment & Plan (03/15/2023 1:06 PM EDT): Hypertension is controlled Continue med regime Acquired absence of wbnamv3107/18/2018Malignant neoplasm of ucukrb5007/07/2018HLD (hyperlipidemia)09/04/2017Essential jpczkkjsfpym19/22/2017 Assessment & Plan (05/05/2023 10:55 PM EDT): -stable -ct meds Pmtxntjhwdou09/22/2017Chronic systolic heart failure Assessment & Plan (06/26/2024 11:22 AM EDT): Currently euvolemic without exacerbation [place] heart class II Continue GDMT, aspirin, Lipitor, [...] Assessment & Plan (06/26/2024 11:21 AM EDT): ZHI6UJ2-TQHo= 5-age, heart failure, hypertension, CAD/vascular disease A-flutter [...] per documentation -will monitor device for arrhythmia Current Treatment and Therapy Plans No current plan information found. Past Treatment and Therapy Plans No past plan information found. Lifetime Dose Tracking * ChemicalLifetime DoseAutomatic EntryManual EntryFluoro Time14.01 minutes0 dzcmypj47.01 minutesAir Cggdy648.98 mGy0 cZk783.98 mGy Resolved Problems ProblemNoted DateDiagnosed DateResolved DateSevere protein-calorie malnutrition /Mild protein-calorie jzbzfltitkzp39NSTEMI (non-ST elevated myocardial infarction)/ngina pectoris, gadotjlq14/
--- OUTSIDE RECORDS SUMMARY | 2025-08-09 06:49 | XMS_ITS | Clinical Summary ---
Author Organization [employer] tem Address [id number] [address] [place] [address] Care Team Providers Care Applications Sales Representative Name Role Phone Faheem Tran OPHTHALMIC PHOTOGRAPHER-PERMASTONE MECHANIC Primary Care Provider [phone] Allergies Active AllergyReactionsCriticalityNoted LbpcBrunnbcmZxpaemzuFjkdYuylga70/01/2018 Severe blisters DesonideOther (See Comments)Lntnnf4811/05/2023 Medications MedicationSigDispense QuantityRefillsLast FilledStart DateEnd DateStatus balsalazide (COLAZAL) 750 mg capsule Take 1 capsule (750 mg total) by mouth in the morning. Take one three times daily .06/25/2017Active aspirin 81 mg chewable tablet Chew 1 tablet (81 mg total) and swallow in the morning.Active atorvastatin (LIPITOR) 10 mg tablet Indications:Other hyperlipidemiaTAKE ONE TABLET BY MOUTH DAILY 90 tablet Active ferrous sulfate 325 (65 FE) mg tablet Take 1 tablet (325 mg total) by mouth. Take one three times weeklyActive furosemide (LASIX) 20 mg tablet Take 2 tablets (40 mg total) by mouth daily.Active potassium chloride (KLOR-CON SPRINKLE) 10 MEQ CR capsule Take 1 capsule (10 mEq total) by mouth in the morning.Active metoprolol succinate XL (TOPROL XL) 25 mg 24 hr tablet Take 2 tablets (50 mg total) by mouth in the morning.Active pantoprazole (PROTONIX) 40 mg EC tablet Take 1 tablet (40 mg total) by mouth in the morning.Active tamsulosin (FLOMAX) 0.4 mg capsule Take 1 capsule (0.4 mg total) by mouth nightly.Active glucosamine-chondroitin 500-400 mg tablet Take 1 tablet by mouth in the morning.Active isosorbide mononitrate (IMDUR) 30 mg 24 hr tablet Take 1 tablet (30 mg total) by mouth daily.Active amLODIPine (NORVASC) 10 mg tablet Take 0.5 tablets (5 mg total) by mouth in the morning.5Active magnesium oxide (MAGOX) 400 mg tablet Take 1 tablet (400 mg total) by mouth in the morning. 30 tablet 5Active Active Problems Patient Care Coordination No te Formatting of this note migh t be different from the original. Last AWV 08/09/15 ProblemNoted DateDiagnosed DateChest wall ulcer, with fat layer exposed 05/17/2025Infection of pacemaker ljzywc5505/17/2025Nonhealing nonsurgical wound with fat layer arwtyoc9205/03/2025Open wound of left chest wall04/22/2025Surgical wound ounsgax5404/22/2025Pacemaker complications, initial lqafjxndc61/07/2025 Ureter zwybka7707/18/2018Essential elobhrqsfppg22/22/2017HLD (hyperlipidemia) 09/04/2017 Encounters DateTypeDepartmentCare BqlsQhhrctdxszd30/04/2025 8:30 AM EDTOffice Visit [facility] [address] [place] [id number] Pennie Coates, OPHTHALMIC PHOTOGRAPHER-PERMASTONE MECHANIC Chest wall ulcer, with fat layer exposed (Primary Dx); Infection of pacemaker pocket, initial encounter; Open wound of left chest wall, initial nfdgqpcux76/04/2025Travelfrom Last 3 Months Immunizations ImmunizationAdministration DatesNext DueInfluenza, Injectable, quadrivalent (PF) 09/03/2018(Deferred: Patient Refused) Social History Tobacco UseTypesPacks/DayYears UsedDateSmoking Tobacco: FormerCigarettes Smokeless Tobacco: Never Tobacco Cessation:Counseling Given: Not Answered Alcohol UseStandard Drinks/WeekCommentsNo0 (1 standard drink = 0.6 oz pure alcohol)[facility] UtilitiesAnswerDate RecordedIn the past 12 months has the [employer], [employer], or [employer] threatened to shut off services in your home?No 04/20/2025PHQ-2AnswerDate RecordedTotal Ulsra71511/03/2017PRAPARE - Transportation AnswerDate RecordedIn the past 12 months, has lack of transportation kept you from medical appointments or from getting medications?No04/20/2025In the past 12 months, has lack of transportation kept you from meetings, work, or from getting things needed for daily living?No04/20/2025Housing InstabilityAnswerDate RecordedAre you worried or concerned that in the next two months you may not have stable housing that you own, rent or stay in as a part of a household?No 04/20/2025hildcareAnswerDate PbtobhriFzbochqqfFnzebjr79/12/2019EmploymentAnswer Date RlijenhjCrvrlfssehYlnugln31/12/2019Hunger ScreeningAnswerDate Recorded Within the past 12 months we worried whether our food would run out before we got money to buy more.Never True05/17/2025Within the past 12 months the food we bought just didn't last and we didn't have money to get more.Never True 05/17/2025Purpose - LifeAnswerDate RecordedPurpose and direction in lifeUnknown 11/24/2020ex and Gender InformationValueDate RecordedSex Assigned at BirthNot on fileLegal IpsJpqd0205/19/2015 11:30 AM EDTGender IdentityNot on fileSexual OrientationNot on fileOccupationIndustryJob Start DateJob End DateretiredNot on fileNot on fileNot on file Last Filed Vital Signs Vital SignReadingTime TakenCommentsBlood Iqnttbxd221/8305/17/2025 8:47 AM EDT Kqify898905/17/2025 8:47 AM NSFZmtsgxyjlvs20.9 ??C (98.4 ??F)05/17/2025 8:47 AM EDTRespiratory Bwfu309805/17/2025 8:47 AM EDTOxygen Hycwfegdzc18%05/08/2025 10:04 AM EDTInhaled Oxygen Concentration--Mgklbw29.9 kg (163 lb)05/08/2025 10:04 AM CVXWslcbl163.6 cm (5' 4 )05/08/2025 10:04 AM EDTBody Mass Index27.98005/08/2025 10:04 AM EDT Plan of Treatment Health MaintenanceDue DateLast DoneCommentsDepression Malegbjsh55/12/1952Fall Risk Eumeojcxk84/12/2004Zoster (Shingles) Vaccine (2 of 2)/ COVID-19 Vaccine (4 - season)/12/2020, 11/26/2020, 11/05/2020Influenza Bqiuulp38/Tobacco Ozzzzbrzk44/04/2026 05/17/2025DTaP,Tdap and Td Vaccines (3 - Td or Tdap), 01/15/2013 Goals GoalPatient Goal TypeAssociated ProblemsRecent ProgressPatient-Stated?Author <enter goal here> Farida Young RN Note: Evaluation of progress towards goal: patient progressing toward safe discharge home. Medical Devices ImplantedTypeAreaManufacturerDevice IdentifierShelf Expiration DateModel / Serial / LotPacemaker Tin Levy 19.5f 32.2 Mm Ra [facility] [place] [facility] - [id number] - [id number] Implanted:Qty: 1 on 04/21/2025 [facility]emakerLeft: ChestST SARWAT (Diag)[id number] / [id number] / Pacemaker Tin Levy 19.5f 38.0 Mm Rv Crd Strl - [id number] - [id number] Implanted:Qty: 1 on 04/21/2025 by [facility]: ChestST SARWAT (Diag)[id number]/[id number] / [id number] / Procedures Procedure NamePriorityDate/TimeAssociated DiagnosisCommentsNURSING COMMUNICATION Iwmbaan7405/17/2025 9:12 AM EDT Chest wall ulcer, with fat layer exposed NURSING CJVUWRJNNFJITKnbamqo07/04/2025 9:12 AM EDT Chest wall ulcer, with fat layer exposed from Last 3 Months Results * Xeroform 4x4 (05/17/2025 9:12 AM EDT) Only the most recent of2 resultswithin the time period is included. Narrative MANUALLY TRANSCRIBED RESULTS - 05/17/2025 9:12 AM EDT Applied in clinic today Authorizing ProviderResult TypeResult StatusPennie CHICASCNPNURSING COMMUNICATIONFinal ResultPerforming OrganizationAddressCity/State/ZIP CodePhone Number MANUALLY TRANSCRIBED RESULTS from Last 3 Months Insurance Advance Directives * Full Code (Latest Code Status on File) Date ActivatedDate InactivatedComments04/19/2025 5:09 PM04/23/2025 4:07 PM Care Teams Team MemberRelationshipSpecialtyStart DateEnd Date Faheem Tran APRN-PERMASTONE MECHANIC [address] [place] [address] [facility]04/20/25
--- OUTSIDE RECORDS SUMMARY | 2025-08-09 06:49 | XMS_ITS | Patient Health Record ---
Author Organization [facility] [place] Address [address] [place] [address] Care Team Providers Care Manager Product Management Name Role Phone None, Unknown or Primary Care Provider Unavailab john Monica Mickey Unavailable [phone] Allergies No Known Allergies Reason For Referral No Information Medications Medication SIG (Take, Route, Frequency, Duration) Notes Start Date End Date Status Losartan Potassium 50 MG TAKE 1 TABLET BY MOUTH TWICE A DAY; Duration: 90 ActivePantoprazole Sodium 40 MGTAKE ONE TABLET BY MOUTH EVERY EVENING; Duration: 90ActiveIsosorbide Dinitrate 20 MG1 tablet Orally TIDActiveLevsin/SL 0.125 MG2 tablet under the tongue and allow to dissolve as needed for abd pain Sublingual Three times a day; Duration: 30 days01/07/2024ctivePotassium Chloride ER 10 MEQ TAKE ONE TABLET BY MOUTH TWICE A DAY WITH FOOD; Duration: 90 daysActive Liothyronine Sodium 5 MCGTAKE 2 TABLETS BY MOUTH DAILY; Duration: 60Active metroNIDAZOLE 500 MG1 tablet Orally Three times a day; Duration: 10 day(s) 03/18/2024ctiveLevothyroxine Sodium 25 MCGTAKE ONE TABLET BY MOUTH EVERY MORNING ON AN EMPTY STOMACH; Duration: 30ActivehydrALAZINE HCl 25 MG1 tablet with food Orally Three times a dayActiveIron 325 (65 Fe) MG1 tablet Orally Three times a WeekActiveBalsalazide Disodium 750 MG3 capsules Orally three times daily ActiveMagnesium 400 MGas directed Orally Once a dayActiveCentrum Silver -1 tablet Orally every nightActiveMetoprolol Succinate ER 50 MG1 tablet Orally Once a dayActiveOndansetron 4 MG2 tablet on the tongue and allow to dissolve Orally Q 6 hours PRN; Duration: 3 msotQOT7811/18/2023ctiveGlucosaminew/MSM 1500mgActive Keytruda 100 MG/4MLas directed IntravenousActiveamLODIPine Besylate 5 MG1 tablet Orally Once a dayActiveLasix 20 MG1 tablet Orally Once a dayPRNActiveTamsulosin HCl 0.4 MG1 capsule Orally Once a day; Duration: 90 daysActiveAspirin Adult Low Dose 81 MG1 tablet Orally Once a dayActiveAtorvastatin Calcium 10 MGTAKE ONE TABLET BY MOUTH EVERY NIGHT AT BEDTIME; Duration: 90Active Immunizations Vaccine Route Administration Date Status Comme nts Flu, Fluad (5901-2834) (64136) 65 yrs+, single-dose syringe IM Intramuscular 07/22/2023 Administered Social History Tobacco Use: Social History Observation Description Date Details (start date - stop date) Former Smoker 10/14/1957 - 10/14/1978 Tobacco Use/Smoking Question Answer Notes Patient is a former smoker When did you start smoking?10/14/1957When did you stop smoking?10/14/1978How long has it been since you last smoked?> 10 yearsAlcohol Screen (Audit-C) Question Answer Notes Did you have a drink containing alcohol in the p ast year? No Jgcrxx9DuiytjqqzjcelvZshrlhul Problems Problem Type SNOMED Code ICD Code Onset Dates Problem Status W/U Status Risk Notes Problem Syncope and collapse (459393277) Syncope and collapse (R55) ActiveconfirmedProblemHypomagnesemia (933113753)Hypomagnesemia (E83.42)Active confirmedProblemDehydration (86789691)Dehydration (E86.0)ActiveconfirmedProblem Hypotension (10608949)Other hypotension (I95.89)ActiveconfirmedProblemLiver disease (898853134)Liver disease, unspecified (K76.9)ActiveconfirmedProblem Bradycardia (61465023)Bradycardia, unspecified (R00.1)ActiveconfirmedProblem Aftercare (611970362)Encounter for follow-up examination after completed treatment for malignant neoplasm (Z08)ActiveconfirmedProblemPersonal history of primary malignant neoplasm of urinary system (149204324)Personal history of malignant neoplasm of unspecified urinary tract organ (Z85.50)Activeconfirmed ProblemCardiac pacemaker in situ (597338420)Presence of cardiac pacemaker (Z95.0)ActiveconfirmedProblemAbdominal pain (59801692)Abdominal pain (R10.9) ActiveconfirmedProblemHypothyroid (96162609)Hypothyroid (E03.9)Activeconfirmed ProblemMalignant tumor of prostate (067536310)Prostate cancer (C61)Active confirmedProblemGastritis (6857608)Gastritis (K29.70)ActiveconfirmedProblem Vomiting (063460437)Vomiting (R11.10)ActiveconfirmedProblemDry mouth (44123307) Dry mouth (R68.2)ActiveconfirmedProblemSevere protein-calorie malnutrition (Aj: less than 60% of standard weight) (533029177)Protein-calorie malnutrition, severe (E43)ActiveconfirmedProblemIron deficiency anemia (56932911)Anemia, iron deficiency (D50.9)ActiveconfirmedProblemHyperlipidaemia (11703984)Hyperlipidemia, unspecified hyperlipidemia type (E78.5)Activeconfirmed ProblemUrothelial carcinoma (76632435)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)Active confirmedProblemSevere protein calorie malnutrition (339597405)Other severe protein-calorie malnutrition (E43)ActiveconfirmedProblemPrimary hypertension (50563881)Primary hypertension (I10)ActiveconfirmedProblemBenign prostatic hypertrophy without outflow obstruction (607793254)Benign prostatic hyperplasia, unspecified whether lower urinary tract symptoms present (N40.0)Activeconfirmed ProblemIron deficiency anemia (74409428)Chronic iron deficiency anemia (D50.9) ActiveconfirmedProblemChronic kidney disease stage 3 (disorder) (967508712)Stage 3 chronic kidney disease, unspecified whether stage 3a or 3b CKD (N18.30)Active confirmedProblemAbnormal results of cardiovascular function studies (036940672) Cardiac LV ejection fraction of 40-49% (R94.30)Activeconfirmed Encounters Encounter Location Date Provider Diagnosis [address] [place] [address] 11/30/2024 Mickey Anderson [facility] [address] [place] [address] 12/30/2024Mickey Anderson Plan Of Treatment Pending Test Test Name Order Date CMP (COMPLETE METABOLIC PANEL) 4 CULTURE, STOOL 01/07/2024 CBC WITH DIFF 01/07/2024 URIC ACID 01/07/2024 CT Abdomen and Pelvis w/contrast * 11/13 CT Abdomen and Pelvis w/contrast * 01/06 CT Abdomen and Pelvis w/contrast * 01/06 MRI Liver 11/14/2023 C DIFF TOX PCR STOOL 01/07/2024 Echo Complete 01/07/2024 STOOL OCCULT BLOOD 01/07/2024 C. DIFF PCR 03/10/2024 PROTIME 08/15/2023 STOOL CULTURE 03/10/2024 THYROID PROFILE WITH TSH 04/18/2023 THYROID PANEL (T4/TSH/FREE T3) 4 THYROID PANEL (T4/TSH/FREE T3) 3 THYROID PANEL (T4/TSH/FREE T3) 4 Lipid Panel 12/06/2023 Insurance Providers Payer Name Payer Address Payer Phone Subscriber Number Group Number Insured Name Patient Relationship to Insured Coverage Start Date Coverage End Date [place] [address] [place] [address] [id number] Baljeet Sanchez - patient is the [id number] 2005[facility] [address] [place] [phone], LeoSelf - patient is the [id number] 2022 Medical (General) History Medical History History ICD Code Syncope R55 Chronic kidney disease N18.9 Left bundle branch block (LBBB) I44.7 Acute systolic heart failure I50.21 Dyspnea R06.00 Viral syndrome B34.9 Basal cell carcinoma C44.91 GERD (gastroesophageal reflux disease) K 21.9 Hypertension I10 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
--- OUTSIDE RECORDS SUMMARY | 2025-08-09 06:49 | XMS_ITS ---
Author Organization [employer] tem Address [id number] [address] [place] [address] Care Team Providers Care Collar Starcher Name Role Phone Faheem Tran SCHOOL SUPERINTENDENT-CARDIOVASCULAR SONOGRAPHER Primary Care Provider [phone] [phone] Active Problems Patient Care Coordination No te Formatting of this note migh t be different from the original. Last AWV 08/09/15 ProblemNoted DateDiagnosed DateChest wall ulcer, with fat layer exposed 05/17/2025Infection of pacemaker jjrflr9005/17/2025Nonhealing nonsurgical wound with fat layer ogwxrft6705/03/2025Open wound of left chest wall04/22/2025Surgical wound wpzvmgm3904/22/2025Pacemaker complications, initial pwkcuegeu35/07/2025 Ureter ggguef0807/18/2018Essential fouiipfytloa93/22/2017HLD (hyperlipidemia) 09/04/2017 Current Treatment and Therapy Plans No current plan information found. Other Current Plans Ambulatory wound care* Plan Start Date:05/17/2025 Plan Provider:AVIVA HorvathCARDIOVASCULAR SONOGRAPHER Linked Problems Chest wall ulcer, with fat l keri exposed Treatment Medications No medications scheduled. Past Treatment and Therapy Plans No past plan information found. Lifetime Dose Tracking * ChemicalLifetime DoseAutomatic EntryManual UtkgeOgsenycgwrr131 mGy0 uKf654 mGy
--- OUTSIDE RECORDS SUMMARY | 2025-08-09 06:49 | XMS_ITS | Clinical Summary ---
Author Organization [facility] Address [address], [address] [place] [address] Care Team Providers Care Drill Sergeant Name Role Phone Faheem Tran OPHTHALMIC ASSISTANT - ELECTRONIC SENSING EQUIPMENT ASSEMBLER Primary Care Provider Allergies No known active allergies Medications MedicationSigDispense QuantityRefillsLast FilledStart DateEnd DateStatus ferrous sulfate (IRON 325) 325 (65 Fe) MG tablet Take 1 tablet by mouth three times a weekActive amLODIPine (NORVASC) 10 MG tablet Take 1 tablet by mouth dailyActive aspirin 81 MG chewable tablet Take 1 tablet by mouth dailyActive atorvastatin (LIPITOR) 10 MG tablet Take 1 tablet by mouth dailyActive Multiple Vitamins-Minerals (THERAPEUTIC MULTIVITAMIN-MINERALS) tablet Take 1 tablet by mouth dailyActive isosorbide dinitrate (ISORDIL) 20 MG tablet Take 1 tablet by mouth 3 times dailyActive furosemide (LASIX) 20 MG tablet Take 1 tablet by mouth daily Patient takes 2 tabletsActive Magnesium 400 MG CAPS Take by mouthActive metoprolol succinate (TOPROL XL) 25 MG extended release tablet Take 1 tablet by mouth dailyActive potassium chloride (MICRO-K) 10 MEQ extended release capsule Take 1 capsule by mouth 2 times dailyActive pantoprazole (PROTONIX) 40 MG tablet Take 1 tablet by mouth nightlyActive tamsulosin (FLOMAX) 0.4 MG capsule Take 1 capsule by mouth dailyActive glucosamine-chondroitin 500-400 MG tablet Take 1 tablet by mouth dailyActive isosorbide mononitrate (IMDUR) 30 MG extended release tablet Take 1 tablet by mouth06/27/2024Active omeprazole (PRILOSEC) 20 MG delayed release capsule Take 1 capsule by mouth dailyActive balsalazide (COLAZAL) 750 MG capsule Indications:Ulcerative pancolitis (HCC)Take 3 capsules by mouth 3 times daily 90 capsule 05/14/2024ctive cephALEXin (KEFLEX) 500 MG capsule Take 1 capsule by mouth 3 times dailyActive Active Problems ProblemNoted DateDiagnosed DateCongenital jmdojyidhptbyz59/11/2024hronic systolic heart mulvbcu9904/22/2024 Overview (04/22/2024): Last Assessment & Plan: - NYHA I-2 GDMT: Losartan 50 mg, Toprol-XL 25 mg, Isordil 20 mg twice daily, hydralazine 25 mg 3 times daily, Lasix 20 mg daily, Lipitor 10 mg daily, aspirin 81 mg, amlodipine 10 mg -pending repeat echo, previously echo 04/05 EF 48% Pacemaker complications, initial blwvxpqfu69/24/2024Syncope and collapse 03/15/2023 Overview (04/22/2024): Last Assessment & Plan: Reviewed with Dr Reddy and he recommended perm Pacemaker- orders sent and d/w pt and daughter= provided pt education pamphlet for Pacemaker that reviewed indications, risks vs benefits of procedure and pt voiced understanding and is agreeable with proceeding with PPM High-grade atrioventricular block03/15/2023 Overview (04/22/2024): Added automatically from request for surgery [id number] Last Assessment & Plan: -s/p DC PPM -device check stable Malignant neoplasm of urinary mnkpixs1611/10/2021KI (acute kidney injury) 11/01/2021Hypertensive heart disease with heart rcrckzi7807/11/2021 Overview (04/22/2024): Last Assessment & Plan: -BP elevated in office 171/70, 170/72, patient reports he has not taken any of his medications yet today -denies cardiac symptoms -EF 55% on echo 02/2022 scanned into Epic -on hydralazine, losartan, isosorbide dinitrate, and Jardiance -follows with cardiology, dr. Keven Castaneda, requested most recent office note Last Assessment & Plan: -BP elevated in office 171/70, 170/72, patient reports he has not taken any of his medications yet today -denies cardiac symptoms -EF 55% on echo 02/2022 scanned into Epic -on hydralazine, losartan, isosorbide dinitrate, and Jardiance -follows with cardiology, dr. Keven Castaneda, requested most recent office note Mohggqcpaqkimp21/18/2019Ulcerative vcrxxooddt85/29/2019 Overview (04/22/2024): Last Assessment & Plan: -stable on rx Last Assessment & Plan: -stable on rx Stage 3 chronic kidney xczdekq8608/11/2019 Overview (04/22/2024): Last Assessment & Plan: -labs pending Last Assessment & Plan: -labs pending Malignant neoplasm of kidney excluding renal vvvdyp2807/29/2019 Overview (04/22/2024): Last Assessment & Plan: -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, present since 2019, s/p URS and laser ablation, tumor recurrence andhas been getting chemo (last dose a few months ago), now scheduled for surgery Last Assessment & Plan: -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, present since 2019, s/p URS and laser ablation, tumor recurrence andhas been getting chemo (last dose a few months ago), now scheduled for surgery Malignant neoplasm of ywpund2607/07/20189010Uhvllmjmevfu59/22/2017Essential lyebckwpxsnj46/22/2017 Overview (04/22/2024): Last Assessment & Plan: -stable -ct meds Last Assessment & Plan: Hypertension is controlled Continue med regime Resolved Problems ProblemNoted DateDiagnosed DateResolved DateAtrial cavurpm55/08/2024 Overview (04/22/2024): Last Assessment & Plan: -hx of flutter -not on ac , on aspirin Does not want AC -no flutter since recommended for ablation per documentation -will monitor device for arrhythmia Encounters DateTypeDepartmentCare KasdJxvuzhqcspt04/23/2025Orders Only [facility] [address] [place] [id number] Provider, MD Olayinka 06/07/2025[facility] [address] [place] [phone] Faheem Tran APRN - ELECTRONIC SENSING EQUIPMENT ASSEMBLER [facility] [address] [place] [facility] [place] [phone] Faheem Tran APRN - ELECTRONIC SENSING EQUIPMENT ASSEMBLER [facility] [address] [place] [facility] [place] [phone] Faheem Tran APRN - ELECTRONIC SENSING EQUIPMENT ASSEMBLER [facility] [address] [place] [facility] [place] [phone] Faheem Tran APRN - ELECTRONIC SENSING EQUIPMENT ASSEMBLER [facility] [address] [place] [address] Faheem Tran, OPHTHALMIC ASSISTANT - ELECTRONIC SENSING EQUIPMENT ASSEMBLER from Last 3 Months Immunizations ImmunizationAdministration DatesNext SfwYBK1002/26/2022INFLUENZA, INTRADERMAL, QUADRIVALENT, PRESERVATIVE FREE08/09/2015Pneumococcal, PCV-13, PREVNAR 13, (age 6w+), IM, 0.5mL01/07/2015Pneumococcal, PPSV23, PNEUMOVAX 23, (age 2y+), SC/IM, 0.5mL02/13/2013TD 5LF, TENIVAC, (age 7y+), IM, 0.5mL01/15/2013Td, (Adult) Not Mwncxxlt56/04/2013Zoster Recombinant (Shingrix)08/12/2023 Social History Tobacco UseTypesPacks/DayYears UsedDateSmoking Tobacco: FormerCigarettesQuit: 10/14/2012Passive Smoke Exposure: NeverSmokeless Tobacco: Never Tobacco Cessation:Counseling Given: Not Answered Alcohol UseStandard Drinks/WeekCommentsNever0 (1 standard drink = 0.6 oz pure alcohol)[facility] UtilitiesAnswerDate RecordedIn the past 12 months has the [place], gas, oil, or water [employer] threatened to shut off services in your home?Patient wyvraezl61/15/2025AUDIT-CAnswerDate RecordedQ1: How often do you have a drink containing alcohol?Never10/27/2024Q2: How many drinks containing alcohol do you have on a typical day when you are drinking?Patient does not drink10/27/2024Q3: How often do you have six or more drinks on one occasion?Never10/27/2024Overall Financial Resource Strain (CARDIA)AnswerDate RecordedHow hard is it for you to pay for the very basics like food, housing, medical care, and heating?Patient tmdgtvao97/10/2024PHQ-2AnswerDate RecordedPHQ-9 Total Lcuel247Exercise Vital SignAnswerDate RecordedOn average, how many days per week do you engage in moderate to strenuous exercise (like a brisk walk)?5 days10/27/2024On average, how many minutes do you engage in exercise at this level?10 min10/27/2024Hunger Vital SignAnswerDate RecordedWithin the past 12 months, you worried that your food would run out before you got the money to buymore.Never true04/27/2025 Within the past 12 months, the food you bought just didn't last and you didn't have money to get more.Never true04/27/2025PRAPARE - TransportationAnswerDate RecordedIn the past 12 months, has lack of transportation kept you from medical appointments or from getting medications?No04/27/2025In the past 12 months, has lack of transportation kept you from meetings, work, or from getting things needed for daily living?No04/27/2025Housing Stability Vital SignAnswerDate RecordedUnable to Pay for Housing in the Last YearNot on file04/22/2024Number of Places Lived in the Last YearNot on file04/22/2024In the last 12 months, was there a time when you did not have a steady place to sleep or slept in [facility] (including now)?Patient aewihjdq78/10/2024Housing Stability Vital SignAnswerDate RecordedIn the last 12 months, was there a time when you were not able to pay the mortgage or rent on time?No04/27/2025In the past 12 months, how many times have you moved where you were living?t any time in the past 12 months, were you homeless or living in a care home (including now)?No04/27/2025 Food InsecurityAnswerDate RecordedWithin the past 12 months, you worried that your food would run out before you got the money to buymore.Within the past 12 months, the food you bought just didn't last and you didn't have money to get more.Sex and Gender InformationValueDate RecordedSex Assigned at BirthNot on fileLegal GzoTvsr8801/20/2016 8:38 AM EDTGender Identity Not on fileSexual OrientationNot on file Last Filed Vital Signs Vital SignReadingTime TakenCommentsBlood Uservvty483/7607 8:53 AM EDT Uwmvo4696 8:42 AM YNUGzjescojefe71.8 ??C (98.2 ??F)04/27/2025 8:40 AM EDTRespiratory Gaws357704/27/2025 8:40 AM EDTOxygen Uhfbzzwgrn50%04/27/2025 8:40 AM EDTInhaled Oxygen Concentration--Xppvmt95 kg (174 lb 1.6 oz)04/27/2025 8:40 AM EVILsgvdn008.5 cm (5' 2 )10/27/2024 8:47 AM ESTBody Mass Index31.8410/27/2024 8:47 AM EST Plan of Treatment DateTypeDepartmentCare Team (Latest Contact Info)Msyqbwfhwfg43/15/2026 9:20 AM ESTOffice Visit [facility] [address] [place] [address] Faheem Tran, OPHTHALMIC ASSISTANT - ELECTRONIC SENSING EQUIPMENT ASSEMBLER [address] [place] [address] 6 month check up11/02/2025 8:40 AM ESTOffice Visit [facility] [address] [place] [address] Faheem Tran, OPHTHALMIC ASSISTANT - ELECTRONIC SENSING EQUIPMENT ASSEMBLER [address] [place] [address] AWV and 6 monthHealth MaintenanceDue DateLast DoneCommentsFlu vaccine (#1) /COVID-19 Vaccine ( season)/12/2020, 11/26/2020, 11/05/20208782Kriemz51/08/202601/05/2025, 01/20/2016Annual Wellness Visit (Medicare)/Depression Rowvnj29/, 04/27/2025Respiratory Syncytial Virus (RSV) or age 60 yrs+ (1 - 1-dose 75+ series)04/27/2026Postponed from 2014 (Patient Refused)Shingles vaccine (2 of 2)610/3Postponed from 10/07/2023 (Patient Refused) DTaP/Tdap/Td vaccine (2 - Tdap), 01/15/2013, 01/15/2013 Pneumococcal 50+ years AcjdfiyHsnyisfbu48/27/2015, 02/13/2013Hepatitis A vaccine Aged OutNo longer eligible based on patient's age to complete this topic Hepatitis B vaccineAged OutNo longer eligible based on patient's age to complete this topicHib vaccineAged OutNo longer eligible based on patient's age to complete this topicMeningococcal (ACWY) vaccineAged OutNo longer eligible based on patient's age to complete this topicMeningococcal B vaccineAged OutNo longer eligible based on patient's age to complete this topicPolio vaccineAged OutNo longer eligible based on patient's age to complete this topic Procedures Procedure NamePriorityDate/TimeAssociated DiagnosisCommentsECHO OUTSIDE IMAGES/QTLAOFOwqgydd34/23/2025 3:01 PM EDTLIPID ZLHSTQilvuwj27/08/2025 8:36 AM EST Congenital hypothyroidism Dyslipidemia from Last 3 Months or Most Recently Relevant to Health Maintenance Results * Echo Outside Images/Report (07/06/2025 3:01 PM EDT)Anatomical RegionLaterality ModalityOther Narrative Authorizing ProviderResult TypeResult StatusHistorical Provider MDCV ECHO ORDERABLESFinal Result * Lipid Panel (10/21/2024 8:36 AM EST)ComponentValueRef RangeTest MethodAnalysis TimePerformed AtPathologist SignatureCholesterol, Soifz2092 - 199 mg/dL 10/21/2024 8:36 AM [facility]STMERCY LABORATORIESComment: Cholesterol Guidelines: <200 Desirable 200-240 ??Borderline >240 Undesirable HDL51>40 mg/dL10/21/2024 8:36 AM [facility]ORATORIESComment: HDL Guidelines: <40 Undesirable 40-59 ?Borderline >59 Desirable LDL Czlgxlorptk001 - 100 mg/dL10/21/2024 8:36 AM [facility]ORATORIESComment: LDL Guidelines: <100 Desirable 100-129 ?? Near to/above Desirable 130-159 ?? Borderline >159 Undesirable Direct (measured) LDL and calculated LDL are not interchangeable tests. Chol/HDL Ratio2.6010/21/2024 8:36 AM ESTMERCY HSQJCFIFLVRMEflapxihbzykm99<150 mg/dL10/21/2024 8:36 AM [facility]ORATORIESComment: Triglyceride Guidelines: <150 Desirable 150-199 ??Borderline 200-499 ??High >499 Very high Based on AHA Guidelines for fasting triglyceride, July 2012. DLSQ125 - 30 mg/dL10/21/2024 8:36 AM ESTMERCY LABORATORIESSpecimen (Source) Anatomical Location / LateralityCollection Method / VolumeCollection Time Received TimeBloodBLOOD SPECIMEN / Zbftwmt6110/21/2024 8:36 AM EST10/21/2024 8:37 AM EST Narrative Authorizing ProviderResult TypeResult StatusBrett W Might OPHTHALMIC ASSISTANT - CNPCHEMISTRY ORDERABLESFinal ResultPerforming OrganizationAddressCity/State/ZIP CodePhone Number [facility] [address] [place] [address], [facility] [phone] [facility] [address] [place] [address], [facility] [phone] from Last 3 Months or Most Recently Relevant to Health Maintenance Insurance Advance Directives NameRelationshipHealthcare Agent RelationshipCommunRiverside [facility] Fabian Primary Decision Maker* Care Teams Team MemberRelationshipSpecialtyStart DateEnd Date , Faheem Nelson, OPHTHALMIC ASSISTANT - ELECTRONIC SENSING EQUIPMENT ASSEMBLER [address] [place] [address] PCP - GeneralFamily Nurse Practitioner04/21/24
--- OUTSIDE RECORDS SUMMARY | 2025-08-09 06:50 | XMS_ITS | CCD ---
Author Organization [facility] Care Team Providers Care Mason Foreman/Superintendant Name Role Phone PHYSICIAN, DEFAULT Unavailable Unavailable PHYSICIAN, DEFAULT Unavailable Unavailable PHYSICIAN, DEFAULT Unavailable Unavailable PHYSICIAN, DEFAULT Unavailable Unavailable Sergio Sneed MD Primary Care Provider [phone] Jian Rodriguez MD Unavailable Unavailable Mike BARBER, Lauren Barros Unavailable Soren Perea MD Unavailable Corazon Maxwell PA-C Unavailable [phone] Augusto Sauceda Unavailable Shawn Nelson Unavailable Sergio Sneed MD Primary Care Provider [phone] Jian Rodriguez MD Unavailable Unavailable Brit FOUNTAIN, Soren Unavailable Keven Castaneda MD Unavailable Sergio Sneed Primary Care Physician Sergio Sneed MD Primary Care Provider Graeme Vazquez MD Unavailable Saray BARBER, Margot Unavailable Patricia Conteh APRN.CNP Unavailable PAY ., [...] RODRIGUEZ Attending Unavailable Saray RN, Margot Unavailable [phone] Sergio Sneed MD Primary Care Provider [phone] Unavailable Primary Care Provider Unavailabl e Might Marilu CULVER Primary Care Provider Sergio Sneed MD Primary Care Provider [phone] Might PUBLIC SPEAKING PROFESSOR - ARBORICULTURE INSTRUCTOR, Marilu Nelson Primary Care Provider MIGHT, MARILU W Primary Care Unavailable LENI SANTIAGO Attending Unavailable CHINA ADAM Attending Unavailable MIGHT, MARILU W Referring Unavailable MIGHT, MARILU W Primary Care Unavailable ADRIANNE AMES Referring Unavailable MIGHT, MARILU W Primary Care Unavailable OLIVE BAUTISTA Referring Unavailable MIGHT, MARILU W Primary Care Unavailable AMBER ELENA Attending Unavailable MIGHT, MARILU W Primary Care Unavailable ABHYANKAR, GRAEME Referring Unavailable MIGHT, MARILU W Primary Care Unavailable ABHYANKAR, GRAEME Referring Unavailable MIGHT, MARILU W Primary Care Unavailable SERGIO SNEED Primary Care Unavailable ABHYANKAR, GRAEME Attending Unavailable ABHYANKAR, GRAEME Referring Unavailable SERGIO SNEED Primary Care Unavailable ABHYANKAR, GRAEME Referring Unavailable ABHYANKAR, GRAEME Attending Unavailable MIGHT, MARILU W Primary Care Unavailable MIGHT, MARILU W Primary Care Unavailable ABHYANKAR, GRAEME Referring Unavailable ABHYANKAR, GRAEME Attending Unavailable ABHYANKAR, GRAEME Referring Unavailable MIGHT, MARILU W Primary Care Unavailable MIGHT, MARILU W Primary Care Unavailable Might PUBLIC SPEAKING PROFESSOR-ARBORICULTURE INSTRUCTOR, Marilu Nelson Primary Care Provider SERGIO SNEED Primary Care Unavailable CARDIOLOGY, [facility] Consulting Unavailable KENNEDY, RD U Admitting Unavailable KENNEDY, RD U Attending Unavailable DIVISION OF INFECTIOUS DISEASE, [facility] Consulting Unavailable [place], CARDIOTHORACIC SURGEONS FOR [facility] Unavailable ONLY), IP WOUND CARE SERVICES (INPATIENT Consult ing Unavailable CHAGO HERNANDEZ Attending Unavail able MIGHT, MARILU W Referring Unavailable MIGHT, MARILU W Primary Care Unavailable HARPREET AVALOS Attending Unavailable MIGHT, MARILU W Referring Unavailable MIGHT, MARILU W Primary Care Unavailable HARPREET AVALOS Attending Unavailable MIGHT, MARILU W Referring Unavailable MIGHT, MARILU W Primary Care Unavailable LILY, OLIVE Attending Unavailable LILY, OLIVE Referring Unavailable MOUKARBEL, KEVEN Attending Unavailable LILY, OLIVE Attending Unavailable DEA, ADEN Referring Unavailable AIDE, JESSICA Attending Unavailable DEA, ADEN Attending Unavailable LILY, OLIVE Admitting Unavailable LILY, OLIVE Attending Unavailable LILY, OLIVE Admitting Unavailable LILY, OLIVE Attending Unavailable LILY, OLIVE Attending Unavailable LILY, OLIVE Referring Unavailable RAVIADELINA Attending Unavailable LILY, OLIVE Referring Unavailable AIDE, JESSICA Attending Unavailable LILY, OLIVE Referring Unavailable LILY, OLIVE Referring Unavailable MOUKARBEL, KEVEN Attending Unavailable Allergies Allergy ClassificationReported Allergen(s)Allergy TypeDate of OnsetReaction(s) Facility (20 sources)Adhesive Tape; Translations: [ADHESIVE TAPE (ROSINS)]Propensity to adverse reactions to zmdwkxgae84-16-6623Odwji: [facility] ([facility])Adhesive Tape; Translations: [Tape]Allergy to substanceBlister of skin without infection (disorder)[facility] (17 sources)DesonideDrug Imfxahj06-52-7704Xqmgpqq, Other (See Comments)[facility] (1 source)No Known Medication Allergies; Translations: [No Known Medication Allergies]Propensity to adverse reactions (disorder)[facility] (4 sources)Desonide; Translations: [DESONIDE]Drug Zkliqmj89-95-4990[facility] (10 sources)Adhesive agent; Translations: [ADHESIVE]Propensity to adverse reactions to gtsp13-09-1074DnkdIbvQxlkho Health SystemNEGATED: Highlighted row has been ruled out! (1 source)[facility] allergyExec[facility] Medications Current Medications MedicationDrug Class(es)DatesSig (Normalized)Sig (Original)amLODIPine 10 mg oral tablet (20 sources)Dihydropyridine Calcium Channel BlockerStart: 62-08-3362xrvr 0.5 tablet by mouth in the morningamLODIPine (NORVASC) 10 mg tablet Take 0.5 tablets (5 mg total) by mouth in the morning. 5ActiveStart: 05-05-2018 End: 52-19-0509zhdw 1 tablet by mouth once daily at bedtimeamLODIPine (NORVASC) 10 mg tablet Take 10 mg by mouth daily at bedtime. 0 05/05/2018 05/03/2022 Disc ontinuedamLODIPine Besylate ActiveComment on above:Take 10 mg by mouth daily at bedtime. Take 10 mg by mouth once daily.aspirin 81 mg chewable tablet (20 sources)Platelet Aggregation Inhibitor, Nonsteroidal Anti-inflammatory Drug Start: 90-41-4618zhqmjel chewable tablet 324 mgaspirin 81 mg chewable tablet Chew 1 tablet (81 mg total) and swallow in the morning. Activetake 1 tablet by mouth once dailyaspirin, enteric coated (ASPIRIN, ENTERIC COATED) 81 mg EC tablet Take 81 mg by mouth once daily. ActiveBayer Aspirin ActiveComment on above:Take 81 mg by mouth once daily.atorvastatin 10 mg oral tablet (20 sources)HMG-CoA Reductase InhibitorStart: 47-36-9497wqjj 1 tablet by mouth once dailyatorvastatin (LIPITOR) 10 mg tablet Indications: Other hyperlipidemia TAKE ONE TABLET BY MOUTH DAILY 90 tablet 1 03/05/2019 ActiveStart: 06-13-2018 take 1 tablet by mouth once dailyatorvastatin (LIPITOR) 80 mg tablet Take 80 mg by mouth once daily. 06/13/2018 ActiveLipitor ActiveComment on above:Take 10 mg by mouth once daily. balsalazide disodium 750 mg oral capsule (20 sources)AminosalicylateStart: 54-54-3559zpuc 3 capsules by mouth three times dailybalsalazide (COLAZAL) 750 MG capsule Indications: Ulcerative pancolitis (HCC) Take 3 capsules by mouth 3 times daily 90 capsule 05/14/2024 ActiveStart: 06-96-1621gzun 1 capsule by mouth in the morning, then take 1 capsule by mouth three times dailybalsalazide (COLAZAL) 750 mg capsule Take 1 capsule (750 mg total) by mouth in the morning. Take one three times daily . 06/25/2017 Active Start: 06-25-2017 End: 43-37-3788dluz 3 capsules by mouth once dailybalsalazide (COLAZAL) 750 mg capsule Take 2,250 mg by mouth once daily. 06/25/2017 12/24/2023 Discontinued (Discontinued by Patient)Start: 59-15-6891zlrl 2 capsules by mouth once daily balsalazide (COLAZAL) 750 mg capsule Take 1,500 mg by mouth once daily. 0 06/25/2017 ActiveStart: 32-13-5057lmeu 2 capsules by mouth three times daily balsalazide (COLAZAL) 750 mg capsule Take 1,500 mg by mouth three times daily. 0 06/25/2017 Activetake 3 capsules by mouth three times dailybalsalazide (COLAZAL) 750 MG capsule Take 3 capsules by mouth 3 times daily 0 ActiveComment on above:Take 1,500 mg by mouth three times daily. Take 1,500 mg by mouth once daily.Take 2,250 mg by mouth once daily.carvedilol 3.125 mg oral tablet (8 sources)alpha-Adrenergic Cayal, beta-Adrenergic BlockerStart: 02-28-2022 End: 69-27-8542zplbvnecec (COREG) 3.125 mg tabletCarvedilol ActiveCentrum (4 sources)Centrum ActiveCentrum Silver (1 source)Start: 42-52-7555Yckexkh Silver Oral, Daily, Refill(s) 0 Start Date: 08/16/21 Status: Orderedcephalexin 500 mg oral capsule (6 sources)Cephalosporin AntibacterialStart: 04-23-2025 End: 87-55-6756ecpb 1 capsule by mouth three times dailyCEPHalexin (KEFLEX) 500 mg capsule Take 1 capsule (500 mg total) by mouth 3 (three) times a day for12 days. 36 capsule 04/23/2025 05/05/2025 ActiveStart: 01-04-2025 End: 73-41-0610ogzq 1 capsule by mouth four times dailycephALEXin (KEFLEX) 500 MG capsule Indications: Abscess Take 1 capsule by mouth 4 times daily for 10 days 40 capsule 01/04/2025 01/14/2025 Activechondroitin sulfates 400 mg / glucosamine hydrochloride 500 mg oral tablet (20 sources)take 1 tablet by mouth in the morningglucosamine-chondroitin 500-400 mg tablet Take 1 tablet by mouth in the morning. Activetake 1 tablet by mouth once dailyGlucosamine-Chondroitin 500-400 mg tablet Take 1 tablet by mouth once daily. Activetake 1 tablet by mouth once dailyglucosamine-chondroitin 500-400 MG tablet Take 1 tablet by mouth daily ActiveComment on above:Take 1 tablet by mouth once daily. clopidogrel 75 mg oral tablet (10 sources)P2Y12 Platelet InhibitorStart: 04-21-2024 End: 95-16-1159cidnprhsjhn (PLAVIX) 75 MG tablet Take 1 tablet by mouth 04/21/2024 04/16/2025 Activecranberry fruit (CRANBERRY) 450 mg tab (6 sources)take 1 capsule by mouth once daily in the morningcranberry fruit (CRANBERRY) 450 mg tab Take 1 capsule by mouth every morning. Activetake 1 capsule by mouth once daily in the morningcranberry fruit (CRANBERRY) 450 mg tab Take 1 capsule by mouth every morning. 0 ActiveCranberry preparation (20 sources)Non-Standardized Food Allergenic Extract, Non-Standardized Plant Allergenic ExtractStart: 83-18-6607Rzpkokteq Start Date: 11/29/21 Status: Ordered End: 55-27-9854yrsv 1 capsule by mouth twice dailyCranberry 500 mg cap Take 500 mg by mouth twice daily. 0 11/12/2022 DiscontinuedCranberry Activetake 1 capsule by mouth twice dailyCranberry 500 mg cap Take 500 mg by mouth twice daily. 0 ActiveComment on above:Take 500 mg by mouth twice daily. enteric contrast (will be provided with radiology test) (20 sources)Start: 07-91-0666uasjbcc contrast (will be provided with radiology test) [...] per enteric contrast guidelines 1 Each 10/23/2024 ActiveStart: 08-21-2024 End: 76-90-0220txblrle contrast (will be provided with radiology test) Indications: Malignant 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) For CT CHESTABD/PEL W IVCON Routine order Administer, As Directed One Time Only, via Oral, Rectal, both Oral and Rectal, Enteric Tube, Stoma or Indwelling Catheter, Enteric Contrast as designated per enteric contrast guidelines 1 Each 08/21/2024 10/23/2024 Discontinued (Course of therapy completed)Start: 2392zejnors contrast (will be provided with radiology test) Indications: Malignant 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) For CT CHESTABD/PEL W IVCON Routine order Administer, As Directed One Time Only, via Oral, Rectal, both Oral and Rectal, Enteric Tube, Stoma or Indwelling Catheter, Enteric Contrast as designated per enteric contrast guidelines 1 Each 08/21/2024 ActiveStart: 05-18-2024 End: 96-67-0371iuoqbdi contrast (will be provided with radiology test) [...] Each 05/18/2024 10/23/2024 Discontinued (Course of therapy completed)Start: 65-10-2630ecpxfcr contrast (will be provided with radiology test) [...] per enteric contrast guidelines 1 Each 05/18/2024 ActiveStart: 29-04-4150jcrjxpk contrast (will be provided with radiology test) [...] enteric contrast guidelines 1 Each 0 05/18/2024 ActiveStart: 12-20-2023 End: 72-53-6389vuuzsil contrast (will be provided with radiology test) For CT CHESTABD/PEL W IVCON Routine order Administer, As Directed One Time Only, via Oral, Rectal, both Oral and Rectal, Enteric Tube, Stoma orIndwelling Catheter, Enteric Contrast as designated per enteric contrast guidelines 1 Each 0 024 12/21/2023 ExpiredStart: 07-18-2023 End: 97-71-0328taoofkf contrast (will be provided with radiology test) For CT CHESTABD/PEL W IVCON Routine order Administer, As Directed One Time Only, via Oral, Rectal, both Oral and Rectal, Enteric Tube, Stoma orIndwelling Catheter, Enteric Contrast as designated per enteric contrast guidelines 1 Each 0 023 07/19/2023 ExpiredStart: 05-16-2023 End: 21-14-2336rjjlquo contrast (will be provided with radiology test) For CT CHESTABD/PEL W IVCON Routine order Administer, As Directed One Time Only, via Oral, Rectal, both Oral and Rectal, Enteric Tube, Stoma orIndwelling Catheter, Enteric Contrast as designated per enteric contrast guidelines 1 Each 05/16/2023 06/28/2023 Discontinued (Discontinued by Patient)Start: 05-16-2023 End: 98-74-7507zkbaflf contrast (will be provided with radiology test) For CT CHESTABD/PEL W IVCON Routine order Administer, As Directed One Time Only, via Oral, Rectal, both Oral and Rectal, Enteric Tube, Stoma orIndwelling Catheter, Enteric Contrast as designated per enteric contrast guidelines 1 Each 0 023 06/28/2023 Discontinued (Discontinued by Patient)Start: 19-87-7369jrvdeak contrast (will be provided with radiology test) For CT CHESTABD/PEL W IVCON Routine order Administer, As Directed One Time Only, via Oral, Rectal, both Oral and Rectal, Enteric Tube, Stoma orIndwelling Catheter, Enteric Contrast as designated per enteric contrast guidelines 1 Each 0 05/16/2023 ActiveStart: 08-06-2018 End: 84-63-5170pezjujm contrast (will be provided with radiology test) For CT CHESTABD/PEL W IVCON Routine order Administer, As Directed One Time Only, via Oral, Rectal, both Oral and Rectal, Enteric Tube, Stoma orIndwelling Catheter, Enteric Contrast as designated per enteric contrast guidelines 1 Each 0 018 11/01/2021 Discontinued (Adjust Sig - Block E-Cancel)Comment on above:For CT CHESTABD/PEL W IVCON Routine order Administer, As Directed One Time Only, via Oral, Rectal, both Oral and Rectal, Enteric Tube, Stoma or Indwelling Catheter, Enteric Contrast as designated perenteric contrast guidelinesferrous sulfate 325 mg oral tablet (20 sources)ferrous sulfate 325 (65 FE) mg tablet Take 1 tablet (325 mg total) by mouth. Take one three times weekly Activetake 1 tablet by mouth three times weeklyferrous sulfate (IRON 325) 325 (65 Fe) MG tablet Take 1 tablet by mouth three times a week ActiveComment on above:Take 325 mg by mouth.Fish Oils (3 sources)Fish Oil Activefolic acid/multivit-min/lutein (CENTRUM SILVER ORAL) (20 sources)take 1 tablet by mouth once dailyfolic acid/multivit-min/lutein (CENTRUM SILVER ORAL) Take 1 tablet by mouth once daily. Activetake 1 tablet by mouth once dailyfolic acid/multivit-min/lutein (CENTRUM SILVER ORAL) Take 1 tablet by mouth once daily. 0 ActiveComment on above:Take 1 tablet by mouth once daily. furosemide 20 mg oral tablet (20 sources)Loop DiureticStart: 17-82-7133rqky 1 tablet by mouth once daily furosemide 20 mg Tab 20 mg = 1 tab(s), Oral, Daily Start Date: 08/16/21 Status: Orderedtake 2 tablets by mouth once dailyfurosemide (LASIX) 20 mg tablet Take 2 tablets (40 mg total) by mouth daily. Activefurosemide (LASIX) 40 mg tablet Take 40 mg by mouth as needed. ActiveFurosemide ActiveComment on above:Take 20 mg by mouth once daily.Take 20 mg by mouth as needed.glucosamine hydrochloride 1500 mg oral tablet (5 sources)Start: 65-76-2432uakj 1500 mg by mouth once dailyglucosamine 1,500 mg, Oral, Daily, Refills(s) 0 Start Date: 07/13/19 Status: OrderedGlucosamine JzoymrFdwgfvkobqs-Kervznxhf-Gsq C-Mn (GLUCOSAMINE 1500 COMPLEX) CAPS (5 sources)Gtuocewclcn-Ukgliizok-Rky C-Mn (GLUCOSAMINE 1500 COMPLEX) CAPS Take by mouth YsspmiDzknpmjdjqp-Vdjpepezu-Xdv C-Mn (GLUCOSAMINE 1500 COMPLEX) CAPS Take by mouth 0 Jmxtpg09 hr guaiFENesin 600 mg extended release oral tablet (5 sources)Start: 04-23-2025 End: 14-57-9033quyk 1 tablet by mouth onceguaiFENesin (MUCINEX) 600 mg tablet extended release 12hr Take 1 tablet (600 mg total) by mouth every 12 (twelve) hours for 14 days. 28 tablet 04/23/2025 05/07/2025 ActivehydrALAZINE hydrochloride 25 mg oral tablet (20 sources)Arteriolar VasodilatorStart: 49-37-0196megd 1 tablet by mouth three times dailyhydrALAZINE (APRESOLINE) 25 mg tablet Take 25 mg by mouth three times a day. 02/21/2022 ActiveStart: 20-79-8252spgdZUYGYEJ (APRESOLINE) 50 mg tablet Take 25 mg by mouth three times a day. 0 02/21/2022 ActiveStart: 28-90-0695zdbi 1 tablet by mouth three times dailyhydrALAZINE (APRESOLINE) 50 mg tablet Take 50 mg by mouth three times daily. 0 02/21/2022 ActiveStart: 06-62-7444buvx 1 tablet by mouth four times dailyhydrALAZINE 10 mg Tab 10 mg = 1 tab(s), Oral, QID Start Date: 08/16/21 Status: OrderedhydrALAZINE HCl Active End: 31-76-9539kqmq 2 tablets by mouth three times dailyhydrALAZINE (APRESOLINE) 10 mg tablet Take 20 mg by mouth three times daily. 0 03/05/2022 Discontinued Comment on above:Take 20 mg by mouth three times daily.Take 50 mg by mouth three times daily.Take 25 mg by mouth three times a day.hyoscyamine sulfate 0.125 mg oral tablet (11 sources)hyoscyamine (LEVSIN) 0.125 mg tablet Take 125 mcg by mouth. Active take 1 tablet by mouth once daily as neededhyoscyamine (ANASPAZ;LEVSIN) 125 MCG tablet Take 1 tablet by mouth nightly as needed for Cramping Activeiopamidol (ISOVUE-370) 76 % injection 75 mL (1 source)Start: 29-36-5185shvqyzzof (ISOVUE-370) 76 % injection 75 mLIron (1 source)take 1 tablet by mouth three times weeklyIron (Ferrous Sulfate) 325 (65 Fe) MG 1 tablet Orally Three times a Week Ccwnjl72 hr isosorbide mononitrate 30 mg extended release oral tablet (20 sources)Nitrate VasodilatorStart: 04-09-2024 End: 10-69-8103mvnrbbcsew mononitrate (IMDUR) 30 MG extended release tablet Take 1 tablet by mouth 04/09/2024 04/04/2025 ActiveComment on above:Take 30 mg by mouth once daily.isosorbide dinitrate 20 mg oral tablet (20 sources)Nitrate VasodilatorStart: 22-49-1521jlil 1 tablet by mouth three times dailyisosorbide dinitrate (ISORDIL) 20 mg tablet Take 20 mg by mouth three times a day. 08/15/2023 ActiveStart: 08-08-8791igkf 1 tablet by mouth twice dailyisosorbide dinitrate 10 mg Tab 10 mg = 1 tab(s), Oral, BID Start Date: 08/16/21 Status: Ordered End: 53-29-3818hvxrsnkpuz dinitrate (ISORDIL) 10 mg tablet Take 20 mg by mouth three times daily. 0 12/31/2022 DiscontinuedIsosorbide Dinitrate ActiveComment on above:Take 20 mg by mouth three times daily.Take 20 mg by mouth three times a day.iv contrast (will be provided with radiology test) (20 sources)Start: 67-36-1455eg contrast (will be provided with radiology test) [...] contrast administration guidelines link. 1 Each 10/23/2024 ActiveStart: 08-21-2024 End: 67-63-6712ix contrast (will be provided with radiology test) Indications: Malignant 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) CT Chest ABD/PEL- Inject, intravenously, once for 1 dose.No IV access, [...] administration guidelines link. 1 Each 08/21/2024 10/23/2024 D iscontinued (Course of therapy completed)Start: 54-00-8157cx contrast (will be provided with radiology test) Indications: Malignant neoplasm of overlapping si edin of bladder (HCC) CT Chest ABD/PEL-Inject, intravenously, [...] contrast administration guidelines link. 1 Each 08/21/2024 ActiveStart: 05-18-2024 End: 68-10-7860pj contrast (will be provided with radiology test) Indications: Malignant 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) , CKD (chronic kidney disease), stage V (HCC) , Malignant neoplasm of urinary bladder, unspecified site (HCC) , Disorder of thyroid , Abnormal blood chemistry CT Chest ABD/PEL-Inj ect, intravenously, once for 1 dose.No IV access, insert saline lock prior to the beginning of sedation, infusion, injection of imaging exam. Discontinue saline lock post exam. If Pt. has a central line or IVAD, may access for administration according to line specific nursing protocol. Once exam iscomplete flush line and de-access according to line specific nursing protocol in the CT contrast administration guidelines link. 1 Each 05/18/2024 10/23/2024 Discontinued (Course of therapy completed)Start: 91-22-8903po contrast (will be provided with radiology test) Indications: Malignant neoplasm of overlapping si edin of bladder (HCC) , CKD (chronic kidney [...] to line specific nursing protocol. Once exam iscomplete flush line and de-access according to line specific nursing protocol in the CT contrast administration guidelines link. 1 Each 05/18/2024 ActiveStart: 24-75-1776nz contrast (will be provided with radiology test) Indications: Malignant neoplasm of overlapping si edin of bladder (HCC) , CKD (chronic kidney [...] to line specific nursing protocol. Once exam iscomplete flush line and de-access according to line specific nursing protocol in the CT contrast administration guidelines link. 1 Each 0 05/18/2024 ActiveStart: 12-20-2023 End: 12-46-2119yr contrast (will be provided with radiology test) CT Chest ABD/PEL-Inject, intravenously, once for1 dose.No IV access, insert saline lock prior to the beginning of sedation, infusion, injection of imaging exam. Discontinue saline lock post exam. If Pt. has a central line or IVAD, may access for administration according to line specific nursing protocol. Once exam is complete flush line and de-access according to line specific nursing protocol in the CT contrast administration guidelines link.1 Each 0 12/20/2023 12/21/2023 ExpiredStart: 07-18-2023 End: 34-17-1831hs contrast (will be provided with radiology test) CT Chest ABD/PEL-Inject, intravenously, once for1 dose.No IV access, insert saline lock prior to the beginning of sedation, infusion, injection of imaging exam. Discontinue saline lock post exam. If Pt. has a central line or IVAD, may access for administration according to line specific nursing protocol. Once exam is complete flush line and de-access according to line specific nursing protocol in the CT contrast administration guidelines link.1 Each 0 07/18/2023 07/19/2023 ExpiredStart: 05-16-2023 End: 32-80-9754gn contrast (will be provided with radiology test) CT Chest ABD/PEL-Inject, intravenously, once for1 dose.No IV access, insert saline lock prior to the beginning of sedation, infusion, injection of imaging exam. Discontinue saline lock post exam. If Pt. has a central line or IVAD, may access for administration according to line specific nursing protocol. Once exam is complete flush line and de-access according to line specific nursing protocol in the CT contrast administration guidelines link.1 Each 05/16/2023 12/24/2023 Discontinued (Discontinued by Patient)Start: 05-16-2023 End: 53-41-0966vm contrast (will be provided with radiology test) CT Chest ABD/PEL-Inject, intravenously, once for1 dose.No IV access, insert saline lock prior to the beginning of sedation, infusion, injection of imaging exam. Discontinue saline lock post exam. If Pt. has a central line or IVAD, may access for administration according to line specific nursing protocol. Once exam is complete flush line and de-access according to line specific nursing protocol in the CT contrast administration guidelines link.1 Each 0 05/16/2023 12/24/2023 Discontinued (Discontinued by Patient)Start: 24-48-5001gb contrast (will be provided with radiology test) CT Chest ABD/PEL-Inject, intravenously, once for1 dose.No IV access, insert saline lock prior to the beginning of sedation, infusion, injection of imaging exam. Discontinue saline lock post exam. If Pt. has a central line or IVAD, may access for administration according to line specific nursing protocol. Once exam is complete flush line and de-access according to line specific nursing protocol in the CT contrast administration guidelines link.1 Each 0 05/16/2023 ActiveStart: 08-06-2018 End: 67-78-1088kb contrast (will be provided with radiology test) CT Chest ABD/PEL-Inject, intravenously, once for1 dose.No IV access, insert saline lock prior to the beginning of sedation, infusion, injection of imaging exam. Discontinue saline lock post exam. If Pt. has a central line or IVAD, may access for administration according to line specific nursing protocol. Once exam is complete flush line and de-access according to line specific nursing protocol in the CT contrast administration guidelines link.1 Each 0 08/06/2018 11/01/2021 DiscontinuedComment on above:CT Chest ABD/PEL-Inject, intravenously, once for 1 dose.No IV access, insert saline lock prior to the beginning of sedation, infusion, injection of imaging exam. Discontinue saline lock post exam. IfPt. has a central line or IVAD, may access for administration according to line specific nursing protocol. Once exam is complete flush line and de-access according to line specific nursing protocol in the CT contrast administration guidelines link.lactobacillus acidophilus [id number] unt oral capsule (6 sources)lactobacillus acidophilus 100 mg (1 billion cell) cap(s) Take by mouth. Activelevothyroxine sodium 0.025 mg oral tablet (20 sources)l-ThyroxineStart: 55-82-7605fbgt 1 tablet by mouth once daily in the morninglevothyroxine (SYNTHROID) 25 mcg tablet 1 tablet in the morning on an empty stomach Orally Once a day for 30 days 06/12/2023 ActiveComment on above:1 tablet in the morning on an empty stomach Orally Once a day for 30 days liothyronine sodium 0.005 mg oral tablet (1 source)l-Triiodothyroninetake 1 tablet by mouth at bedtimeliothyronine (CYTOMEL) 5 MCG tablet Take 1 tablet by mouth in the morning and at bedtime 0 Activelosartan potassium 50 mg oral tablet (20 sources)Angiotensin 2 Receptor BlockerStart: 17-97-0459ljpxgszl (COZAAR) 50 mg tablet Take 50 mg by mouth. 0 07/13/2019 ActiveStart: 05-15-2018 End: 06-98-6767pgqw 1 tablet by mouth twice dailylosartan (COZAAR) 50 mg tablet Take 50 mg by mouth two times a day. 07/13/2019 ActiveLosartan Potassium Active Comment on above:Take 50 mg by mouth twice daily. Take 50 mg by mouth.Take 50 mg by mouth two times a day.Magnesium (5 sources)Magnesium 400 MG CAPS Take by mouth ActiveMagnesium 400 MG CAPS Take by mouth 0 Activemagnesium oxide 400 mg oral tablet (13 sources)Start: 61-00-5093zrwj 1 tablet by mouth in the morningmagnesium oxide (MAGOX) 400 mg tablet Take 1 tablet (400 mg total) by mouth in the morning. 30 tablet 2 2025 Activemagnesium oxide 400 mg magnesium tab Take 400 mg by mouth. Wduvsz61 hr metoprolol succinate 25 mg extended release oral tablet (20 sources)beta-Adrenergic BlockerStart: 08-16-2021 End: 81-61-2467wewb 1 mg by mouth once dailymetoprolol 25 mg ER Tab mg tab(s), Oral, Daily Start Date: 08/16/21 Status: Orderedtake 2 tablets by mouth every twenty-four hours in the morningmetoprolol succinate XL (TOPROL XL) 25 mg 24 hr tablet Take 2 tablets (50 mg total) by mouth in themorning. Active End: 76-32-1369aiek 1 tablet by mouth twice dailymetoprolol tartrate, short acting, (LOPRESSOR) 25 mg tablet Take 25 mg by mouth twice daily. 0 12/31/2022 DiscontinuedComment on above:Take 25 mg by mouth once daily.Take 25 mg by mouth twice daily.Multiple Vitamins-Minerals (THERAPEUTIC MULTIVITAMIN-MINERALS) tablet (5 sources)take 1 tablet by mouth once dailyMultiple Vitamins-Minerals (THERAPEUTIC MULTIVITAMIN-MINERALS) tablet Take 1 tablet by mouth daily Active take 1 tablet by mouth once dailyMultiple Vitamins-Minerals (THERAPEUTIC MULTIVITAMIN-MINERALS) tablet Take 1 tablet by mouth daily 0 Activeondansetron 4 mg disintegrating oral tablet (20 sources)Serotonin-3 Receptor AntagonistStart: 89-84-5185sqlvkvxtlqy orally disintegrating (ZOFRAN ODT) 4 mg disintegrating tablet 11/18/2023 ActiveStart: 11-21-2021 End: 82-57-7125zsol 1 tablet by mouth every eight hours as neededondansetron (ZOFRAN) 8 mg tablet Take 1 tablet by mouth every 8 hours as needed for nausea/vomiting. 90 tablet 2 11/21/2021 05/03/2022 DiscontinuedComment on above: Take 1 tablet by mouth every 8 hours as needed for nausea/vomiting.pantoprazole 40 mg delayed release oral tablet (20 sources)Proton Pump InhibitorStart: 24-98-8384bpucdyoeyrmw DR (PROTONIX) 40 mg tablet 08/15/2023 Active4 ml pembrolizumab 25 mg/ml injection (20 sources)Programmed Receptor-1 Blocking Antibodypembrolizumab (KEYTRUDA) 25 mg/mL injection Inject intravenously. Activepembrolizumab (KEYTRUDA) 100 MG/4ML SOLN Infuse intravenously ActiveKeytruda ActiveComment on above:Inject intravenously.predniSONE 20 mg oral tablet (20 sources)Start: 12-20-2023 End: 71-72-4767kqoa 1 tablet by mouth once dailypredniSONE (DELTASONE) 20 mg tablet Take 1 tablet by mouth once daily. Prednisone 20 mg for 5 days then 10 mg daily. 60 tablet 03/30/2024 ActiveStart: 08-29-2023 End: 07-64-0050zqgu 4 tablets by mouth once dailypredniSONE (DELTASONE) 10 mg tablet Take 4 tablets by mouth once daily. 120 tablet 0 08/29/2023 09/28/2023 ActiveStart: 01-23-2023 End: 28-92-7091etnl 1 tablet by mouth once dailypredniSONE (DELTASONE) 50 mg Take 1 tablet by mouth once daily. 5 tablet 01/23/2023 04/04/2023 Discontinued (Discontinued by another Health Care Provider)Comment on above:Take 1 tablet by mouth once daily.Take 4 tablets by mouth once daily.Take 1 tablet by mouth once daily. Prednisone 20 mg for 5 days then 10 mg daily.prochlorperazine 10 mg oral tablet (12 sources)PhenothiazineStart: 11-21-2021 End: 45-95-0767ubkm 1 tablet by mouth every six hours as neededprochlorperazine (COMPAZINE) 10 mg tablet Take 1 tablet by mouth every 6 hours as needed. 100 tablet 2 11/21/2021 05/03/2022 DiscontinuedComment on above:Take 1 tablet by mouth every 6 hours as needed.tamsulosin hydrochloride 0.4 mg oral capsule (20 sources)alpha-Adrenergic BlockerStart: 05-23-2022 End: 44-81-0927yksq 1 capsule by mouth once dailytamsulosin (FLOMAX) 0.4 mg Take 1 capsule by mouth once daily. 30 capsule 5 05/31/2023 ActiveStart: 09-30-2019 End: 02-87-0051xptsuchkpu (FLOMAX) 0.4 mg Take 1 capsule by mouth once daily 30 minutes after the same meal 30 capsule 2 11/01/2021 ActiveStart: 05-04-2018 End: 53-36-4570iequ 2 capsules by mouth once dailytamsulosin ER (FLOMAX) 0.4 mg cap Take 0.8 mg by mouth once daily. 0 05/04/2018 11/21/2021 Discontinued Tamsulosin HCl ActiveComment on above:Take 1 capsule by mouth once daily 30 minutes after the same mealTake 1 capsule by mouth once daily.Take 0.8 mg by mouth once daily. Take 1 capsule by mouth once daily. 30 minutes after the same meal each day. Completed/Discontinued Medications MedicationDrug Class(es)DatesSig (Normalized)Sig (Original)acetaminophen 325 mg oral tablet (16 sources)Start: 39-83-9929yazl 2 tablets by mouth every four hours as needed acetaminophen (TYLENOL) 325 mg tablet Take 2 tablets by mouth every 4 hours as needed for pain. 30 tablet 0 05/23/2022 ActiveStart: 09-30-2019 End: 16-92-1587lbfp 2 tablets by mouth every four hours as neededacetaminophen (TYLENOL) 325 mg tablet Take 2 tablets by mouth every 4 hours as needed for Pain. 30 tablet 0 09/30/2019 05/03/2022 DiscontinuedComment on above:Take 2 tablets by mouth every 4 hours as needed for Pain.ciprofloxacin 250 mg oral tablet (1 source)Quinolone AntimicrobialStart: 33-60-0761xsjq 1 tablet by mouth once dailyCipro 250 mg Tab 250 mg = 1 tab(s), Oral, Daily, Take 1 tablet the day before the procedure and 1 tablet after the procedure, # 2 tab(s), Refills(s) 0, Pharmacy: [facility] [id number], 167, cm, 12/05/22 9:25:00 EST, Height/Length Dosing, 84, kg, 12/05/22 9:25:00 ES... Start Date: 12/05/22 Status: Ordereddocusate sodium 100 mg oral capsule (5 sources)Start: 11-12-2022 End: 22-57-8602vmky 1 capsule by mouth twice dailydocusate sodium (COLACE) 100 mg capsule Take 1 capsule by mouth twice daily for 14 days. Stop taking if you develop diarrhea or loose stools 28 capsule 0 11/12/2022 11/26/2022 Start: 34-72-9601jdla 1 capsule by mouth twice dailydocusate sodium (COLACE) 100 mg capsule Take 1 capsule by mouth twice daily. 10 capsule 0 05/23/2022 Active Comment on above:Take 1 capsule by mouth twice daily.Take 1 capsule by mouth twice daily for 14 days. Stop taking if you develop diarrhea or loose stools empagliflozin 10 mg oral tablet (20 sources)Sodium-Glucose Cotransporter 2 Inhibitor End: 15-46-7962pvxs 1 tablet by mouth once dailyempagliflozin (JARDIANCE) 10 MG tablet Take 1 tablet every day by oral route for 90 days. 09/10/2024 Discontinued (LIST CLEANUP)Comment on above:Take 10 mg by mouth daily with breakfast.enalapril maleate 5 mg oral tablet (9 sources)Angiotensin Converting Enzyme Inhibitor End: 06-12-6638jokx 1 tablet by mouth once dailyenalapril (VASOTEC) 5 mg tablet Take 5 mg by mouth once daily. 04/04/2023 Discontinued (Changing Therapy/Dosage Form)Comment on above:Take 5 mg by mouth once daily.Fish Oil-Carriere-3 Fatty Acids (FISH OIL) 300-1,000 mg cap (13 sources)take 1 capsule by mouth once dailyFish Oil-Carriere-3 Fatty Acids (FISH OIL) 300-1,000 mg cap Take 2 g by mouth once daily. 0 ActiveComment on above: Take 2 g by mouth once daily. hydroCHLOROthiazide 25 mg / triamterene 37.5 mg oral tablet (1 source)Potassium-sparing Diuretic, Thiazide DiureticStart: 05-14-2018 End: 20-92-2475kcnp 1 tablet by mouth once dailytriamterene-hydrochlorothiazide (MAXZIDE-25) 37.5-25 mg per tablet Take 1 tablet by mouth once daily. 0 05/14/2018 11/01/2021 DiscontinuedComment on above:Take 1 tablet by mouth once daily. Methylcellulose (1 source) End: 13-58-4646vxminykyjpkuczf (CITRUCEL ORAL) Take 1 Tablespoonful by mouth once daily. 0 11/21/2021 DiscontinuedComment on above:Take 1 Tablespoonful by mouth once daily. omega-3 fatty acids/fish oil (FISH OIL-OMEGA-3 FATTY ACIDS) 300-1,000 mg cap (4 sources) End: 33-80-8885aadk 1 capsule by mouth once dailyomega-3 fatty acids/fish oil (FISH OIL-OMEGA-3 FATTY ACIDS) 300-1,000 mg cap Take 2 g by mouth oncedaily. 0 11/12/2022 Discontinuedtake 1 capsule by mouth once dailyomega-3 fatty acids/fish oil (FISH OIL-OMEGA-3 FATTY ACIDS) 300-1,000 mg cap Take 2 g by mouth oncedaily. 0 ActiveComment on above:Take 2 g by mouth once daily. omeprazole 20 mg delayed release oral capsule (20 sources)Proton Pump InhibitorStart: 60-15-6716qbsm 20 mg by mouth once daily omeprazole 20 mg, Oral, Daily, Refills(s) 0 Start Date: 07/13/19 Status: Ordered Start: 06-27-2018 End: 50-98-1606nfmu 1 capsule by mouth twice dailyomeprazole (PRILOSEC) 20 mg capsule Take 1 capsule by mouth twice daily. 60 capsule 11/21/2021 12/24/2023 Discontinued (Discontinued by Patient)take 1 capsule by mouth once daily omeprazole (PRILOSEC) 20 mg capsule Take 1 capsule by mouth once daily. Active Comment on above:Take 1 capsule by mouth twice daily.Take 20 mg by mouth twice daily. oxybutynin chloride 5 mg oral tablet (3 sources)Cholinergic Muscarinic AntagonistStart: 00-77-9634fswn 1 tablet by mouth every eight hours as neededoxybutynin (DITROPAN) 5 mg tablet Take 1 tablet by mouth three times daily as needed (bladder spasms). 12 tablet 0 05/23/2022 ActiveComment on above:Take 1 tablet by mouth three times daily as needed (bladder spasms).oxyCODONE hydrochloride 5 mg oral tablet (7 sources)Opioid AgonistStart: 03-00-9775ojya 1 tablet by mouth every eight hours as needed for painoxyCODONE IR (ROXICODONE) 5 mg immediate release tablet Indications: Postoperative pain Take 1 tablet by mouth every 8 hours as needed for pain. 8 tablet 0 11/12/2022 ActiveStart: 55-83-2069qysf 1 tablet by mouth every eight hours as needed for painoxyCODONE IR (ROXICODONE) 5 mg immediate release tablet Indications: Urothelial carcinoma (HCC) Take 1 tablet by mouth every 8 hours as needed for pain. 4 tablet 0 05/23/2022 ActiveComment on above: Take 1 tablet by mouth every 8 hours as needed for pain.potassium chloride 10 meq extended release oral capsule (20 sources)Start: 26-75-4150ggfzmibub chloride SR (MICRO-K) 10 mEq CR capsule take 1 tablet by mouth twice dailypotassium chloride (K-TAB) 10 mEq tablet Take 10 mEq by mouth twice daily. ActivePotassium Chloride ActiveComment on above: Take 10 mEq by mouth twice daily. Problems Active Problems Problem ClassificationProblemDateDocumented DateEpisodic/ChronicAcute and unspecified renal failure (1 source)Chronic renal oreiyav22-25-3417SafuoufOsbtdoba of urinary tract (2 sources)History of calculus of kidney; Translations: [Personal history of urinary calculi]Onset: 438830-87-5130VbmdnsouTgqwgj of bladder (20 sources)Malignant tumor of urinary bladder; Translations: [Malignant neoplasm of bladder, unspecified]Onset: 146764-88-5210KlwcyjiGirwuv of kidney and renal pelvis (20 sources)Malignant tumor of kidney; Translations: [Malignant neoplasm of unspecified kidney, except renal pelvis]Onset: 07-29-2019 Resolved: 627010-38-2180SvococwKdcfiu of other urinary organs (20 sources)Malignant tumor of ureter; 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]Onset: 07-87-1521JjzozddYtfkaj; other and unspecified primary (1 source)History of bladder cofkdneb42-00-4676YhkoccnuJmwkncg dysrhythmias (7 sources)Atrial flutter; Translations: [Unspecified atrial flutter]Onset: 04-22-2024 Resolved: 671241-49-1787FjgwckoYbyfjkn kidney disease (20 sources)Chronic kidney disease stage 3; Translations: [Stage 3 chronic kidney disease]Onset: 010546-95-6662NdjbmdzZtxswom kidney disease (2 sources)Chronic kidney disease; Translations: [Chronic kidney disease, stage 3b]Onset: 56-92-9850Cqsfrnj ulcer of skin (2 sources)Skin ulcer; Translations: [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 sites with fat layer exposed]Onset: 404891-25-2769PxehpblNzvwhqfhmk disorders (12 sources)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; Translations: [Other atrioventricular block]Onset: hronic Congestive heart failure; nonhypertensive (9 sources)Acute systolic (congestive) heart failure; Translations: [Chronic systolic heart failure]Onset: 292265-68-6753FildrccSwyvaqwl atherosclerosis and other heart disease (2 sources)Atherosclerotic heart disease of [place] coronary artery without angina pectoris; Translations: [Atherosclerotic heart disease of [place] coronary artery without angina pectoris]Onset: 60-53-7716RjbogwjTbgdslxy of mouth; excluding dental (1 source)Xerostomia; Translations: [Dry mouth, unspecified]10-37-1856Olmavphl Disorders of lipid metabolism (17 sources)Pure hypercholesterolemia, unspecified; Translations: [Hyperlipidemia, unspecified]Onset: 405428-30-9880AnepwmsSidtemkmnm disorders (20 sources)Gastroesophageal reflux disease without esophagitis; Translations: [Gastro-esophageal reflux disease without esophagitis]Onset: 08-10-2019 55-44-3414BfeosiwYkmcywlog hypertension (20 sources)Hypertensive disorder; Translations: [Essential (primary) hypertension]Onset: 152616-31-2240CfifkqqCzqgv valve disorders (1 source)Nonrheumatic mitral (valve) insufficiency; Translations: [NONRHEUMATIC MITRAL INSUFFICIENCY]Onset: 26-32-3883HlbplqtQrngcklmwjx of prostate (3 sources)Benign prostatic hypertrophy with outflow obstruction; Translations: [Benign prostatic hyperplasia with lower urinary tract symptoms]Onset: 60-79-4866DjbvfmhTqljmnbkitfe with complications and secondary hypertension (20 sources)Hypertensive heart failure; Translations: [Hypertensive heart disease with heart failure]Onset: 946702-10-6931UzacnhyGysozpk and fatigue (3 sources)Malaise and fatigue; Translations: [Other malaise]40-07-8023Mnaddidx Nutritional deficiencies (1 source)Vitamin D deficiency, unspecified; Translations: [VITAMIN D DEFICIENCY UNSPECIFIED]Onset: 57-91-7141XyiqnnfPzcq wounds of head; neck; and trunk (12 sources)Open wound of left chest wall; Translations: [Unspecified open wound of left front wall of thorax without penetration into thoracic cavity, initial encounter]Onset: 848061-37-3576IkbxvihkHjfnlxhkocvbqw (1 source)Unspecified osteoarthritis, unspecified site; Translations: [UNSPECIFIED OSTEOARTHRITIS UNS SITE]Onset: 49-78-8864AwmilztHofoe aftercare (1 source)Other terminal block assembler (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; Translations: [OTH YARDER OPERATOR CURRENT DRUG THERAPY]Onset: 79-88-9023WkcfkqswAayzr aftercare (1 source)senior living (current) use of aspirin; Translations: [SENIOR CARE CURRENT USE OF ASPIRIN]Onset: 87-87-8013UcpczvblExiet diseases of kidney and ureters (1 source)Urinary tract obstruction; Translations: [Other obstructive and reflux uropathy]Onset: 33-88-3314YxwspokcOolyj gastrointestinal disorders (1 source)Diarrhea, unspecifiedEpisodicOther injuries and conditions due to external causes (10 sources)Open wound; Translations: [Other injury of unspecified body region, initial encounter]Onset: 755652-23-8509FvnctfhsXkumi injuries and conditions due to external causes (7 sources)Surgical wound finding; Translations: [Other injury of unspecified body region, initial encounter]Onset: 097486-47-3253QmdmkqjhHggvs injuries and conditions due to external causes (2 sources)Other injury of unspecified body region, initial encounter; Translations: [Other injury of unspecified body region, initial encounter]Onset: 84-26-8962UfqdjbopQsweq lower respiratory disease (1 source)Shortness of breath; Translations: [SHORTNESS OF BREATH]Onset: 76-35-0418JybislzwHpvso lower respiratory disease (1 source)Shortness of breathOnset: 51-79-7107KatnsbtxWwifl nervous system disorders (4 sources)Tremor, unspecified; Translations: [TREMOR UNSPECIFIED]Onset: 12-58-0971BmchgewgBikbg non-epithelial cancer of skin (1 source)Personal history of other malignant neoplasm of skin; Translations: [PERSONAL HX OTH MALIG NEOPLASMSKIN]Onset: 25-05-0380ZgrelrfgMjdic nutritional; endocrine; and metabolic disorders (20 sources)Obese class I; Translations: [Obesity, unspecified]Onset: 03-27-2022 25-23-7846YxgwqnnShwll nutritional; endocrine; and metabolic disorders (2 sources)Abnormal weight loss; Translations: [Abnormal weight loss]12-20-2023 EpisodicOther screening for suspected conditions (not mental disorders or infectious disease) (1 source)Imaging result abnormal; Translations: [Abnormal findings on diagnostic imaging of other specified body structures]65-70-0884SzzxdqePoofsrbe enteritis and ulcerative colitis (20 sources)Ulcerative pancolitis; 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]Onset: 08-11-2019 Resolved: 999082-54-1333WetpxjyBkvgcziw codes; unclassified (1 source)Acquired absence of kidney; Translations: [ACQUIRED ABSENCE OF KIDNEY] Onset: 61-62-7927CxauzcqtSmfvzzuw codes; unclassified (1 source)Acquired absence of other genital organ(s); Translations: [ACQUIRED ABSENCE OTH GENITAL ORGANS]Onset: 77-76-1719BvckswhfDnhvbuud codes; unclassified (1 source)Other general symptoms and signs; Translations: [Other general symptoms]22-76-1154RtjxfdvwOzryalwpm and history of mental health and substance abuse codes (1 source)Personal history of nicotine dependence; Translations: [PERSONAL HISTORY OF NICOTINE DEPEND]Onset: 08-42-1905QpjfnsuzOwke and subcutaneous tissue infections (2 sources)Abscess; Translations: [Cutaneous abscess, unspecified]Onset: 195164-14-0835LbmwypjiAosrjwu disorders (6 sources)Congenital hypothyroidism; 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]Onset: 932682-41-4199PwcntivVwvboqdkuqcy (1 source)Drug therapy uwlotgi61-57-8486Aliegxmgwomr (1 source)CHRN KIDNEY DISEASE STG 3 UNSP; Translations: [CHRN KIDNEY DISEASE STG 3 UNSP]Onset: 57-81-3932Fwrmonqclydx (3 sources)Pacemaker Problem; Translations: [Pacemaker Problem]Onset: 04-19-2025 Unclassified (1 source)Juan Joseqamar Cunha coming for leadless pacemaker by Dr Nadine Celis coming by ground - stableOnset: 59-82-2085Fjpcwujnyvpl (1 source)Wound CheckOnset: 73-27-9830Cqzgzhf tract infections (1 source)Acute cystitis; Translations: [Acute cystitis without hematuria] Episodic Past or Other Problems Problem ClassificationProblemDateDocumented DateEpisodic/ChronicAcute and unspecified renal failure (20 sources)Acute injury of kidney; Translations: [Acute kidney failure, unspecified]Onset: 947339-75-4145XlddsbomEsaufo of bladder (1 source)Personal history of malignant neoplasm of bladder; Translations: [PERSONAL HX MALIG NEOPLASM BLADDER]Onset: 45-20-1753UwqkpzynTmoceh of other urinary organs (2 sources)History of malignant neoplasm of ureter; Translations: [Personal history of malignant neoplasm of ureter]Onset: 366244-09-2492Uziujdkk Complication of device; implant or graft (18 sources)Disorder of cardiac pacemaker system; Translations: [Unspecified complication of cardiac and vascular prosthetic device, implant and graft, initial encounter]Onset: 923478-09-4840HkltxevxObzaabynmx associated with dizziness or vertigo (4 sources)Dizziness and giddiness; Translations: [DIZZINESS AND GIDDINESS] Onset: 34-11-8385EtzfcvyfJfpeluavst and other anemia (1 source)Anemia, unspecified; Translations: [ANEMIA UNSPECIFIED]Onset: 41-33-0626MqisteqkMtsuivrq mellitus without complication (1 source)Other abnormal glucose; Translations: [OTHER ABNORMAL GLUCOSE]Onset: 78-31-2108NffndtxmAiazeztcmiuac symptoms and ill-defined conditions (20 sources)Tre hematuria; Translations: [Gross hematuria]Onset: 11-09-2022 63-63-5447JtfmvhljIrnc disorders (7 sources)Mood disordersOnset: 073166-93-0048Cayqlsdguds chest pain (4 sources)Chest discomfort; Translations: [Other chest pain]Onset: 09-10-2024 54-37-5156GcuyrqarAdncg diseases of kidney and ureters (20 sources)Hydronephrosis; Translations: [Unspecified hydronephrosis]Onset: 670483-28-4576PstywemrGhfdy lower respiratory disease (2 sources)Other forms of dyspnea; Translations: [Other forms of dyspnea]Onset: 12-39-6080LnaojnjvRggrz screening for suspected conditions (not mental disorders or infectious disease) (7 sources)Patient encounter status; Translations: [Encounter for screening for other disorder]Onset: 36-86-9200RrbwubuiNcfmqkvz codes; unclassified (20 sources)Absent kidney; Translations: [Acquired absence of kidney]Onset: 471986-63-1238HutnlydzLuvzgsc (8 sources)Syncope and collapse; Translations: [Syncope and collapse]Onset: 09-26-8587OfbiendnVpqmiti disorders (6 sources)Disorder of thyroid gland; Translations: [Disorder of thyroid, unspecified]Onset: 923977-51-6281QrfrsaqhWtcpqrzfshwy (4 sources)Onset: 04-22-2024 Resolved: Results Test NameValueInterpretationReference RangeFacilityOffice Visiton 07-19-2025 Follow-up [id number] Juan Jose Austin 1940 M Date Provider Department Center 07/19/2025 KEVEN PULIDO [facility] Family History Problem Relation Age of Onset Heart failure Mother Lung cancer Father Family Status - Relation Status Age at Mother Father Level of Service:01958 OK OFFICE/OUTPATIENT ESTABLISHED MOD [facility] Onlyon 40-62-4001Saidie [id number] Juan Jose Austin 1940 M Date Provider Department Center 07/06/2025 [id number], HISTORICAL CARD Tamiko [facility] Family History Problem Relation Age of Onset Heart failure Mother Lung cancer Father Family Status - Relation Status Age at Mother Father DeceasedNoMercy Health St. [facility] HospitalNo Panel Informationon 08-36-5656Ickrjmp in clinic today MANUALLY TRANSCRIBED RESULTSSum[facility] Yinqau80jq [id number] consent for treatment obtained on 05/14/25 at 12:25pmNoMercy Health St[facility]36Left voicemail with patient to get verbal consent for treatment [facility]36Writer called patient son as well to see if he could get back in touch with us or have his father give us a call back before his appointment time.[facility]36LVM another voicemail request a verbal consent for treatment for the patient to be seen today at 3:20[facility]36Called patient and left voicemail to get consent for treatment so telemed for 05/14/25 at 3:20 pm can be checked in.[facility] 37on [id number] to monitor for signs and symptoms of infection including fever, chills, shortness of breath, chest pain, abdominal pain, nausea, vomiting and diarrhea. Call our office if you notice any of these or go to the ED if needing toNormal [facility] Medical CenterTelemedicineon [id number] Juan Jose Austin 1940 Mel[address] Gray Provider Department [place] 05/14/2025 ADELINA RODGERS [facility] Family History Problem Relation Age of Onset Heart failure Mother Lung cancer Father Family Status - Relation Status Age at Mother Father Level of Service:64625 OK OFFICE/OUTPATIENT ESTABLISHED LOW MDM 20 MIN (GT) Reason for Visit and Comments: Follow-up [[id number]][facility]36on Patient's daughter left a voicemail requesting to speak with Adilia. Daughter stated that she was instructed by the patient's wound care provider (Harpreet Avalos) to contact our office regarding the patient's antibiotics. Daughter's phone number is [phone].[facility] WITH AUTO DIFFERENTIALon [id number] ABSOLUTE COUNT (10*3/UL) BY AUTOMATED COUNT0.0 10*3/uLNormal0.0-0.2[facility] [place] HospitalComment on above:Performed By: #### MG #### [facility] ([facility]) [address] [place] [address] VIRBASOPHILS RELATIVE PERCENT BY AUTOMATED COUNT0.3 %Normal ProMLakeHealth [facility] HospitalComment on above:Performed By: #### MG #### [facility] ([facility]) [address] [place] [address] VIRCELLAVISION DIFFERENTIAL TYPEAUTOMATED DIFFERENTIALNormal [facility] HospitalComment on above:Performed By: #### MG #### [facility] ([facility]) [address] [place] [address] VIREosinophils (Bld) [#/Vol]0.5 10*3/uLHigh0.0-0.4[facility] [place] HospitalComment on above:Performed By: #### MG #### [facility] ([facility]) [address] [place] [address] VIREOSINOPHILS RELATIVE PERCENT BY AUTOMATED COUNT6.0 %Normal [facility] HospitalComment on above:Performed By: #### MG #### [facility] ([facility]) [address] [place] [address] VIRErythrocyte distribution width (RBC) [Ratio]15.6 %High 11.5-15[facility] [place] HospitalComment on above:Performed By: #### MG #### [facility] ([facility]) [address] [place] [address] VIRHematocrit (Bld) [Volume fraction]33.6 %Gxo61-65ZztSgnfny [place] HospitalComment on above:Performed By: #### MG #### [facility] ([facility]) [address] [place] [address] VIRHemoglobin (Bld) [Mass/Vol]11.4 g/lVNie01-37JsbXohvfo Muñiz HospitalComment on above:Performed By: #### MG #### [facility] ([facility]) [address] [place] [address] VIRLYMPHOCYTES ABSOLUTE COUNT (10*3/UL) BY AUTOMATED COUNT0.6 10*3/uLLow1.0-3.5[facility] [place] HospitalComment on above:Performed By: #### MG #### [facility] ([facility]) [address] [place] [address] VIRLYMPHOCYTES RELATIVE PERCENT BY AUTOMATED COUNT6.7 %Normal [facility] [place] HospitalComment on above:Performed By: #### MG #### [facility] ([facility]) [address] [place] [address] VIRMCH (RBC) [Entitic mass]29.0 orTsogdi23-10SqyJydhrm Muñiz HospitalComment on above:Performed By: #### MG #### [facility] ([facility]) [address] [place] [address] VIRMCHC (RBC) [Mass/Vol]34.1 g/xOGmzuet32-50HlmWcrtrn [place] HospitalComment on above:Performed By: #### MG #### [facility] ([facility]) [address] [place] [address] VIRMCV (RBC) [Entitic vol]85 jDFvmswe45-863UbxDviian Muñiz HospitalComment on above:Performed By: #### MG #### [facility] ([facility]) [address] [place] [address] VIRMONOCYTES ABSOLUTE COUNT (10*3/UL) BY AUTOMATED COUNT0.6 10*3/uLNormal0.0-0.9[facility] HospitalComment on above:Performed By: #### MG #### [facility] ([facility]) [address] [place], [place] [address] VIRMONOCYTES RELATIVE PERCENT BY AUTOMATED COUNT6.5 %Normal ProMbullock county hospitala [place] HospitalComment on above:Performed By: #### MG #### [facility] ([facility]) [address] [place], [place] [address] VIRNEUTROPHILS ABSOLUTE COUNT BY AUTOMATED COUNT7.1 10*3/uLHigh 1.5-6.6[facility] HospitalComment on above:Performed By: #### MG #### [facility] ([facility]) [address] [place], [place] [address] VIRNEUTROPHILS RELATIVE PERCENT BY AUTOMATED COUNT80.5 %Normal ProMbullock county hospitala [place] HospitalComment on above:Performed By: #### MG #### [facility] ([facility]) [address] [place] [address] VIRPlatelet mean volume (Bld) [Entitic vol]7.3 fLNormal7-12 [facility] [place] HospitalComment on above:Performed By: #### MG #### [facility] ([facility]) [address] [place], [place] [address] VIRPlatelets (Bld) [#/Vol]187 10*3/nLGhxrry501-696ZvlWaphmj [place] HospitalComment on above:Performed By: #### MG #### [facility] ([facility]) [address] [place] [address] VIRRBC COUNT3.94 X10E12/LLow4.1-5.7[facility] [place] [facility] Comment on above:Performed By: #### MG #### [facility] ([facility]) [address] [place] [address] VIRWBC (Bld) [#/Vol]8.8 10*3/uLNormal4-11[facility] HospitalComment on above:Performed By: #### MG #### [facility] ([facility]) [address] [place], [place] [address] VIRCOMPREHENSIVE METABOLIC PANELon 64-90-8521Nayikdb [Mass/Vol] 3.2 g/dLNormal3.2-5.3[facility] HospitalComment on above:Performed By: #### MG #### [facility] ([facility]) [address] [place], [place] [address] VIRALP [Catalytic activity/Vol]52 U/QAdpiyw88-253XmqTcirji [facility]ñiz HospitalComment on above:Performed By: #### MG #### [facility] ([facility]) [address] [place], [place] [address] VIRALT [Catalytic activity/Vol]13 U/LNormal<=40[facility] HospitalComment on above:Performed By: #### MG #### [facility] ([facility]) [address] [place], [place] [address] VIRAnion gap [Moles/Vol]8 mmol/LNormal5-15[facility] HospitalComment on above:Performed By: #### MG #### [facility] ([facility]) [address] [place], [place] [address] VIRAST [Catalytic activity/Vol]21 U/LNormal<=41[facility] HospitalComment on above:Performed By: #### MG #### [facility] ([facility]) [address] [place], [place] [address] VIRBilirubin [Mass/Vol]0.3 mg/dLNormal0.3-1.2[facility] HospitalComment on above:Performed By: #### MG #### [facility] ([facility]) [address] [place], [place] [address] VIRCalcium [Mass/Vol]7.8 mg/dLLow8.5-10.5[facility] HospitalComment on above:Performed By: #### MG #### [facility] ([facility]) [address] [place] [address] VIRChloride [Moles/Vol]108 mmol/VVhffti13-569OjcOxfbpl [place] HospitalComment on above:Performed By: #### MG #### [facility] ([facility]) [address] [place] [address] VIRCO2 [Moles/Vol]27 mmol/BFrfhem04-43WxaZieqlg [place] [facility] Comment on above:Performed By: #### MG #### [facility] ([facility]) [address] [place] [address] VIRCreatinine [Mass/Vol]1.54 mg/dLHigh0.60-1.30ProK[facility]tering Health [facility] HospitalComment on above:Result Comment: METHOD TRACEABLE TO IDMS STANDARD Performed By: #### MG #### [facility] ([facility]) [address] [place] [address] VIRGFR/1.73 sq M.predicted among non-blacks MDRD (S/P/Bld) [Vol rate/Area]44 mL/min/{1.73_m2}Low>=60ProWooster Community HospitalComment on above: Result Comment: Reported eGFR is based on the CKD-EPI 2020 equation that does not use a race coefficient.Performed By: #### MG #### [facility] ([facility]) [address] [place] [address] VIRGlucose [Mass/Vol]123 mg/dMIlsh94-39TixDtcygd [place] HospitalComment on above:Performed By: #### MG #### [facility] ([facility]) [address] [place] [address] VIRPotassium [Moles/Vol]4.3 mmol/LNormal3.5-5.0ProK[facility]tering Health [facility] Memorial HospitalComment on above:Performed By: #### MG #### [facility] ([facility]) [address] [place] [address] VIRProtein [Mass/Vol]5.0 g/dLLow6.0-8.0ProWooster Community HospitalComment on above:Performed By: #### MG #### [facility] ([facility]) [address] [place] [address] VIRSodium [Moles/Vol]143 mmol/LQyqyyf739-743UliRvlgez [place] HospitalComment on above:Performed By: #### MG #### [facility] ([facility]) [address] [place] [address] VIRUrea nitrogen [Mass/Vol]25 mg/dLNormal5-27ProWooster Community HospitalComment on above:Performed By: #### MG #### [facility] ([facility]) [address] [place] [address] VIRMAGNESIUMon 77-70-2217Xqjxxmdpb [Mass/Vol]1.7 mg/dLLow 1.8-2.6ProWooster Community HospitalComment on above:Performed By: #### MG #### [facility] ([facility]) [address] [place] [address] VIRCBC WITH AUTO DIFFERENTIALon 43-01-7043PATMQGIOU ABSOLUTE COUNT (10*3/UL) BY AUTOMATED COUNT0.0 10*3/uLNormal0.0-0.2[facility] HospitalComment on above:Performed By: #### CBCA #### [facility] ([facility]) [address] [place] [address] VIRBASOPHILS RELATIVE PERCENT BY AUTOMATED COUNT0.2 %Normal ProMLima City HospitalComment on above:Performed By: #### CBCA #### [facility] ([facility]) [address] [place] [address] VIRCELLAVISION DIFFERENTIAL TYPEAUTOMATED DIFFERENTIALNormal ProMLima City HospitalComment on above:Performed By: #### CBCA #### [facility] ([facility]) [address] [place] [address] VIREosinophils (Bld) [#/Vol]0.0 10*3/uLNormal0.0-0.4[facility] [place] HospitalComment on above:Performed By: #### CBCA #### [facility] ([facility]) [address] [place] [address] VIREOSINOPHILS RELATIVE PERCENT BY AUTOMATED COUNT0.0 %Normal [facility] [place] HospitalComment on above:Performed By: #### CBCA #### [facility] ([facility]) [address] [place] [address] VIRErythrocyte distribution width (RBC) [Ratio]15.5 %High 11.5-15ProMetrohealth Parma Medical Centerca [place] HospitalComment on above:Performed By: #### CBCA #### [facility] ([facility]) [address] [place] [address] VIRHematocrit (Bld) [Volume fraction]33.9 %Zla24-10UqiChxtyz [place] HospitalComment on above:Performed By: #### CBCA #### [facility] ([facility]) [address] [place] [address] VIRHemoglobin (Bld) [Mass/Vol]12.0 g/mURqu90-63SphIcznlt [place] HospitalComment on above:Performed By: #### CBCA #### [facility] ([facility]) [address] [place] [address] VIRLYMPHOCYTES ABSOLUTE COUNT (10*3/UL) BY AUTOMATED COUNT0.3 10*3/uLLow1.0-3.5[facility] [place] HospitalComment on above:Performed By: #### CBCA #### [facility] ([facility]) [address] [place] [address] VIRLYMPHOCYTES RELATIVE PERCENT BY AUTOMATED COUNT2.9 %Normal [facility] [place] HospitalComment on above:Performed By: #### CBCA #### [facility] ([facility]) [address] [place] [address] VIRMCH (RBC) [Entitic mass]29.6 icYdkkcr05-58IhpKrfzam [place] HospitalComment on above:Performed By: #### CBCA #### [facility] ([facility]) [address] [place] [address] VIRMCHC (RBC) [Mass/Vol]35.3 g/gFDqzvir23-97MbiUdzwvv [place] HospitalComment on above:Performed By: #### CBCA #### [facility] ([facility]) [address] [place] [address] VIRMCV (RBC) [Entitic vol]84 bSWwppuq60-183IebAwmswu [place] HospitalComment on above:Performed By: #### CBCA #### [facility] ([facility]) [address] [place] [address] VIRMONOCYTES ABSOLUTE COUNT (10*3/UL) BY AUTOMATED COUNT0.6 10*3/uLNormal0.0-0.9ProK[facility] HospitalComment on above:Performed By: #### CBCA #### [facility] ([facility]) [address] [place] [address] VIRMONOCYTES RELATIVE PERCENT BY AUTOMATED COUNT5.5 %Normal ProMLakeHealth [facility]Point [facility] Center HospitalComment on above:Performed By: #### CBCA #### [facility] ([facility]) [address] [place] [address] VIRNEUTROPHILS ABSOLUTE COUNT BY AUTOMATED COUNT10.0 10*3/uL High1.5-6.6ProKettering Health [facility] HospitalComment on above:Performed By: #### CBCA #### [facility] ([facility]) [address] [place] [address] VIRNEUTROPHILS RELATIVE PERCENT BY AUTOMATED COUNT91.4 %Normal [facility] [place] HospitalComment on above:Performed By: #### CBCA #### [facility] ([facility]) [address] [place] [address] VIRPlatelet mean volume (Bld) [Entitic vol]7.5 fLNormal7-12 [place] HospitalComment on above:Performed By: #### CBCA #### [facility] ([facility]) [address] [place] [address] VIRPlatelets (Bld) [#/Vol]211 10*3/mVRudnxj936-559NiaQkdiyf [place] HospitalComment on above:Performed By: #### CBCA #### [facility] ([facility]) [address] [place] [address] VIRRBC COUNT4.04 X10E12/LLow4.1-5.7[facility] Comment on above:Performed By: #### CBCA #### [facility] ([facility]) [address] [place] [address] VIRWBC (Bld) [#/Vol]10.9 10*3/uLNormal4-11ProWooster Community HospitalComment on above:Performed By: #### CBCA #### [facility] ([facility]) [address] [place] [address] VIRCNPNon 63-48-3217IQBSGuiwpdnex (HEMTSA) JUAN JOSE AUSTIN ([id number]) 1940 M Date Time Provider Department 04/22/25 GRAEME VAZQUEZ During your visit today, we recorded the following information about you: Shannan Castelan, RN 04/22/2025 9:11 AM Signed Pt scheduled for CT tomorrow. Currently hospitalized at [facility] in [place]. New defibrillator placed- site became reddened and [...] [N1*11/29/2023 Encounter Status:Closed by SHANNAN CASTELAN on 04/22/25NoSelect [facility] NorthPREHENSIVE METABOLIC PANELon [id number] [Mass/Vol]3.2 g/dL Normal3.2-5.3Pro[facility] HospitalComment on above:Performed By: #### CBCA #### [facility] ([facility]) [address] [place] [address] VIRALP [Catalytic activity/Vol]48 U/ALjupto03-478LanQuvduh [place] HospitalComment on above:Performed By: #### CBCA #### [facility] ([facility]) [address] [place] [address] VIRALT [Catalytic activity/Vol]14 U/LNormal<=40[facility] [place] HospitalComment on above:Performed By: #### CBCA #### [facility] ([facility]) [address] [place] [address] VIRAnion gap [Moles/Vol]9 mmol/LNormal5-15[facility] [place] HospitalComment on above:Performed By: #### CBCA #### [facility] ([facility]) [address] [place] [address] VIRAST [Catalytic activity/Vol]24 U/LNormal<=41[facility] HospitalComment on above:Performed By: #### CBCA #### [facility] ([facility]) [address] [place] [address] VIRBilirubin [Mass/Vol]0.3 mg/dLNormal0.3-1.2ProMed[facility] HospitalComment on above:Performed By: #### CBCA #### [facility] ([facility]) [address] [place] [address] VIRCalcium [Mass/Vol]8.0 mg/dLLow8.5-10.5PHocking Valley Community HospitalComment on above:Performed By: #### CBCA #### [facility] ([facility]) [address] [place] [address] VIRChloride [Moles/Vol]111 mmol/TOleo82-630LykTkiukw [place] HospitalComment on above:Performed By: #### CBCA #### [facility] ([facility]) [address] [place] [address] VIRCO2 [Moles/Vol]24 mmol/IUefgaj93-01JbkJhtspj [facility] Comment on above:Performed By: #### CBCA #### [facility] ([facility]) [address] [place] [address] VIRCreatinine [Mass/Vol]1.48 mg/dLHigh0.60-1.30ProWooster Community HospitalComment on above:Result Comment: METHOD TRACEABLE TO IDMS STANDARD Performed By: #### CBCA #### [facility] ([facility]) [address] [place] [address] VIRGFR/1.73 sq M.predicted among non-blacks MDRD (S/P/Bld) [Vol rate/Area]46 mL/min/{1.73_m2}Low>=60ProWooster Community HospitalComment on above: Result Comment: Reported eGFR is based on the CKD-EPI 2020 equation that does not use a race coefficient.Performed By: #### CBCA #### [facility] ([facility]) [address] [place] [address] VIRGlucose [Mass/Vol]147 mg/nUVsqx90-41FvpNoieuw [place] HospitalComment on above:Performed By: #### CBCA #### [facility] ([facility]) [address] [place] [address] VIRPotassium [Moles/Vol]4.3 mmol/LNormal3.5-5.0Pro[facility] HospitalComment on above:Performed By: #### CBCA #### [facility] ([facility]) [address] [place] [address] VIRProtein [Mass/Vol]4.9 g/dLLow6.0-8.0[facility] [place] HospitalComment on above:Performed By: #### CBCA #### [facility] ([facility]) [address] [place] [address] VIRSodium [Moles/Vol]144 mmol/DCkyoyl924-118YvrUyluyg [place] HospitalComment on above:Performed By: #### CBCA #### [facility] ([facility]) [address] [place] [address] VIRUrea nitrogen [Mass/Vol]23 mg/dLNormal5-27[facility] [place] HospitalComment on above:Performed By: #### CBCA #### [facility] ([facility]) [address] [place] [address] VIRIONIZED CALCIUMon 57-51-4242AHTLQGM CALCIUM - ICAN4.6 mg/dL Normal4.5-5.3[facility] [place] HospitalComment on above:Performed By: #### CBCA #### [facility] ([facility]) [address] [place] [address] VIRMAGNESIUMon 69-73-4362Hqyrytecy [Mass/Vol]1.9 mg/dLNormal 1.8-2.6ProKettering [facility] HospitalComment on above:Performed By: #### CBCA #### [facility] ([facility]) [address] [place] [address] VIRVANCOMYCIN, RANDOMon 05-41-6349TWEPOEONXO24.9 ug/mLNormal 5.0-40.0[facility] [place] HospitalComment on above:Order Comment: Peak 30-40 ug/mLTrough 5-20 ug/mlPerformed By: #### CBCA #### [facility] ([facility]) [address] [place] [address] VIRBEDSIDE GLUCOSEon 04-71-4251Isabcjf [Mass/Vol]160 mg/dLHigh 65-99ProKettering Health [facility] HospitalComment on above:Performed By: #### CBCA #### [facility] ([facility]) [address] [place] [address] VIRCBC WITH AUTO DIFFERENTIALon 55-05-7660FKNDLBEED ABSOLUTE COUNT (10*3/UL) BY AUTOMATED COUNT0.0 10*3/uLNormal0.0-0.2[facility] [place] HospitalComment on above:Performed By: #### [facility] #### [facility] ([facility]) [address] [place] [address] VIRBASOPHILS RELATIVE PERCENT BY AUTOMATED COUNT0.7 %Normal [place] HospitalComment on above:Performed By: #### [facility] #### [facility] ([facility]) [address] [place] [address] VIRCELLAVISION DIFFERENTIAL TYPEAUTOMATED DIFFERENTIALNormal [facility] HospitalComment on above:Performed By: #### [facility] #### [facility] ([facility]) [address] [place] [address] VIREosinophils (Bld) [#/Vol]0.4 10*3/uLNormal0.0-0.4ProKettering Health [facility] HospitalComment on above:Performed By: #### [facility] #### [facility] ([facility]) [address] [place] [address] VIREOSINOPHILS RELATIVE PERCENT BY AUTOMATED COUNT6.7 %Normal [facility] HospitalComment on above:Performed By: #### [facility] #### [facility] ([facility]) [address] [place] [address] VIRErythrocyte distribution width (RBC) [Ratio]15.7 %High 11.5-15ProKettering Health [facility] Memorial HospitalComment on above:Performed By: #### [facility] #### [facility] ([facility]) [address] [place] [id number] VIRHematocrit (Bld) [Volume fraction]36.3 %Yiv63-70HtbAzivuo [place] HospitalComment on above:Performed By: #### [facility] #### [facility] ([facility]) [address] [place] [id number] VIRHemoglobin (Bld) [Mass/Vol]12.6 g/nLKfi61-88MpaHcnoge [place] HospitalComment on above:Performed By: #### [facility] #### [facility] ([facility]) [address] [place] [id number] VIRLYMPHOCYTES ABSOLUTE COUNT (10*3/UL) BY AUTOMATED COUNT0.6 10*3/uLLow1.0-3.5[facility] [place] HospitalComment on above:Performed By: #### [facility] #### [facility] ([facility]) [address] [place] [id number] VIRLYMPHOCYTES RELATIVE PERCENT BY AUTOMATED COUNT11.3 %Normal [facility] HospitalComment on above:Performed By: #### [facility] #### [facility] ([facility]) [address] [place] [id number] VIRMCH (RBC) [Entitic mass]29.1 fvCeqczw60-17ZvnQchrul [place] HospitalComment on above:Performed By: #### [facility] #### [facility] ([facility]) [address] [place] [id number] VIRMCHC (RBC) [Mass/Vol]34.7 g/fFWvmbde88-95SqxCclvkf [place] HospitalComment on above:Performed By: #### [facility] #### [facility] ([facility]) [address] [place] [id number] VIRMCV (RBC) [Entitic vol]84 [id number] Muñiz HospitalComment on above:Performed By: #### [facility] #### [facility] ([facility]) [address] [place], [place] [address] VIRMONOCYTES ABSOLUTE COUNT (10*3/UL) BY AUTOMATED COUNT0.4 10*3/uLNormal0.0-0.9ProKettering Health Greene Memorial HospitalComment on above:Performed By: #### WCSUP #### [facility] ([facility]) [address] [place] [address] VIRMONOCYTES RELATIVE PERCENT BY AUTOMATED COUNT6.3 %Normal ProMLakeHealth TriPoint Medical Center HospitalComment on above:Performed By: #### WCSUP #### [facility] ([facility]) [address] [place] [address] VIRNEUTROPHILS ABSOLUTE COUNT BY AUTOMATED COUNT4.2 10*3/uL Normal1.5-6.6ProKettering Health Greene Memorial HospitalComment on above:Performed By: #### WCSUP #### [facility] ([facility]) [address] [place] [address] VIRNEUTROPHILS RELATIVE PERCENT BY AUTOMATED COUNT75.0 %Normal ProMLakeHealth TriPoint Medical Center HospitalComment on above:Performed By: #### WCSUP #### [facility] ([facility]) [address] [place] [address] VIRPlatelet mean volume (Bld) [Entitic vol]7.4 fLNormal7-12 ProMLakeHealth TriPoint Medical Center HospitalComment on above:Performed By: #### WCSUP #### [facility] ([facility]) [address] [place] [address] VIRPlatelets (Bld) [#/Vol]201 10*3/cXKtngym637-674DyhHtpvrd [place] HospitalComment on above:Performed By: #### WCSUP #### [facility] ([facility]) [address] [place] [address] VIRRBC COUNT4.34 X10E12/LNormal4.1-5.7[facility] Comment on above:Performed By: #### WCSUP #### [facility] ([facility]) [address] [place] [address] VIRWBC (Bld) [#/Vol]5.6 10*3/uLNormal4-11Pro[facility] HospitalComment on above:Performed By: #### WCSUP #### [facility] ([facility]) [address] [place] [address] VIRCOMPREHENSIVE METABOLIC PANELon 49-07-4580Byudcyt [Mass/Vol] 3.5 g/dLNormal3.2-5.3Pro[facility] HospitalComment on above:Performed By: #### WCSUP #### [facility] ([facility]) [address] [place] [address] VIRALP [Catalytic activity/Vol]51 U/YCkbrve50-334TfqAexrye Muñiz HospitalComment on above:Performed By: #### WCSUP #### [facility] ([facility]) [address] [place] [address] VIRALT [Catalytic activity/Vol]9 U/LNormal<=40Pro[facility] HospitalComment on above:Performed By: #### WCSUP #### [facility] ([facility]) [address] [place] [address] VIRAnion gap [Moles/Vol]6 mmol/LNormal5-15Pro[facility] HospitalComment on above:Performed By: #### WCSUP #### [facility] ([facility]) [address] [place] [address] VIRAST [Catalytic activity/Vol]19 U/LNormal<=41Pro[facility] HospitalComment on above:Performed By: #### WCSUP #### [facility] ([facility]) [address] [place] [address] VIRBilirubin [Mass/Vol]0.5 mg/dLNormal0.3-1.2PHocking Valley Community HospitalComment on above:Performed By: #### WCSUP #### [facility] ([facility]) [address] [place] [address] VIRCalcium [Mass/Vol]8.5 mg/dLNormal8.5-10.5PHocking Valley Community HospitalComment on above:Performed By: #### WCSUP #### [facility] ([facility]) [address] [place] [address] VIRChloride [Moles/Vol]110 mmol/KNbfo22-311JviVitdztWooster Community HospitalComment on above:Performed By: #### WCSUP #### [facility] ([facility]) [address] [place] [address] VIRCO2 [Moles/Vol]28 mmol/AOpdnzm52-63JlgCafqfv [facility] Comment on above:Performed By: #### WCSUP #### [facility] ([facility]) [address] [place] [address] VIRCreatinine [Mass/Vol]1.43 mg/dLHigh0.60-1.30ProWooster Community HospitalComment on above:Result Comment: METHOD TRACEABLE TO IDMS STANDARD Performed By: #### WCSUP #### [facility] ([facility]) [address] [place] [address] VIRGFR/1.73 sq M.predicted among non-blacks MDRD (S/P/Bld) [Vol rate/Area]48 mL/min/{1.73_m2}Low>=60ProWooster Community HospitalComment on above: Result Comment: Reported eGFR is based on the CKD-EPI 2020 equation that does not use a race coefficient.Performed By: #### WCSUP #### [facility] ([facility]) [address] [place] [address] VIRGlucose [Mass/Vol]104 mg/iSIafl73-17MpbDgpwbs Muñiz HospitalComment on above:Performed By: #### WCSUP #### [facility] ([facility]) [address] [place] [address] VIRPotassium [Moles/Vol]4.0 mmol/LNormal3.5-5.0Pro[facility] HospitalComment on above:Performed By: #### WCSUP #### [facility] ([facility]) [address] [place] [address] VIRProtein [Mass/Vol]5.3 g/dLLow6.0-8.0Pro[facility] HospitalComment on above:Performed By: #### WCSUP #### [facility] ([facility]) [address] [place] [address] VIRSodium [Moles/Vol]144 mmol/OCvcaic391-627UufTsotxk Muñiz HospitalComment on above:Performed By: #### WCSUP #### [facility] ([facility]) [address] [place] [address] VIRUrea nitrogen [Mass/Vol]22 mg/dLNormal5-27Pro[facility] HospitalComment on above:Performed By: #### WCSUP #### [facility] ([facility]) [address] [place] [address] VIRMAGNESIUMon 90-77-9892Hqiwwkfrp [Mass/Vol]2.0 mg/dLNormal 1.8-2.6Pro[facility] HospitalComment on above:Performed By: #### WCSUP #### [facility] ([facility]) [address] [place] [address] VIRREPEATED ABORHon [id number]_ZLSUNQOfxgjhBliOmubrl Muñiz HospitalComment on above:Performed By: #### WCSUP #### [facility] ([facility]) [address] [place] [address] VIRRH_INTEPPositiveNormalProMedica Muñiz HospitalComment on above:Performed By: #### WCSUP #### [facility] ([facility]) [address] [place] [address] VIRTYPE AND SCREENon 74-98-0920HPX_THEVVJXmhcwzAsoYlwedm [facility] HospitalComment on above:Performed By: #### WCSUP #### [facility] ([facility]) [address] [place] [address] VIRRH_INTEPPositiveNormalProMedica [facility] HospitalComment on above:Performed By: #### WCSUP #### [facility] ([facility]) [address] [place] [address] VIRVANCOMYCIN, RANDOMon 12-64-8028GRFOHLGFKQ49.5 ug/mLNormal 5.0-40.0[facility] HospitalComment on above:Order Comment: Along with Rare Normal Skin [place].Performed By: #### WCSUP #### [facility] ([facility]) [address] [place] [address] VIRWOUND CULTURE SURGICAL DEEP INCLUDES GRAM STAINon 04-21-2025 WOUND CULTURE SURGICAL DEEP INCLUDES GRAM STAINCULTURE RESULTS NO GROWTH 2 DAYS GRAM STAIN 10 to 24 White Blood Cells/LPF 0 Squamous Epithelial Cells/LPF No organisms seenNoalToledo HospitalComcorewell health greenville hospital on above:Order Comment: Pre-op diagnosis:pocket errosion, chbPerformed By: #### CBCA #### [facility] ([facility]) [address] [place] [address] VIRWOUND CULTURE SURGICAL DEEP INCLUDES GRAM STAINCULTURE RESULTS STAPHYLOCOCCUS AUREUS Staphylococcus aureus STAPHYLOCOCCUS AUREUS [...] 1.0 F Cefazolin S F Susceptibility Comment FNormalProMedica The Bellevue HospitalComment on above:Order Comment: Pre-op diagnosis:pocket errosion, chbPerformed By: #### CBCA #### [facility] ([facility]) [address] [place] [address] VIRWOUND CULTURE SURGICAL DEEP INCLUDES GRAM STAINCULTURE RESULTS STAPHYLOCOCCUS AUREUS Staphylococcus aureus STAPHYLOCOCCUS, COAGULASE [...] F Vancomycin S <=^0.5 F Susceptibility Comment FNormalProWooster Community HospitalComment on above:Order Comment: Pre-op diagnosis:pocket errosion, chbPerformed By: #### CBCA #### [facility] ([facility]) [address] [place] [address] VIRXR CHEST 1 VWon [id number] CHEST 1 VWXR CHEST 1 VW Single view chest History:Assess [...] by Lio Licea MD on 04/21/2025 9:14 PMNormalProWooster Community HospitalBLOOD CULTUREon 78-85-3340Pwkphfkq identified Cx Nom (Bld)CULTURE RESULTS NO GROWTH 5 DAYSNormalToledo HospitalComment on above:Order Comment: Along with Rare Normal Skin [place].Performed By: #### WCSUP #### [facility] ([facility]) [address] [place] [address] VIRCBC WITH AUTO DIFFERENTIALon 89-86-9744TDGISODPR ABSOLUTE COUNT (10*3/UL) BY AUTOMATED COUNT0.1 10*3/uLNormal0.0-0.2Pro[facility] HospitalComment on above:Performed By: #### CBCA #### [facility] ([facility]) [address] [place] [address] VIRBASOPHILS RELATIVE PERCENT BY AUTOMATED COUNT1.1 %Normal [place] HospitalComment on above:Performed By: #### CBCA #### [facility] ([facility]) [address] [place] [address] VIRCELLAVISION DIFFERENTIAL TYPEAUTOMATED DIFFERENTIALNormal [place] HospitalComment on above:Performed By: #### CBCA #### [facility] ([facility]) [address] [place] [address] VIREosinophils (Bld) [#/Vol]0.2 10*3/uLNormal0.0-0.4Pro[facility]ica [facility] HospitalComment on above:Performed By: #### CBCA #### [facility] ([facility]) [address] [place] [address] VIREOSINOPHILS RELATIVE PERCENT BY AUTOMATED COUNT4.5 %Normal [facility] HospitalComment on above:Performed By: #### CBCA #### [facility] ([facility]) [address] [place] [address] VIRErythrocyte distribution width (RBC) [Ratio]15.6 %High 11.5-15Pro[facility]ñiz HospitalComment on above:Performed By: #### CBCA #### [facility] ([facility]) [address] [place] [address] VIRHematocrit (Bld) [Volume fraction]37.1 %Qov41-67WwtZudwhm Muñiz HospitalComment on above:Performed By: #### CBCA #### [facility] ([facility]) [address] [place] [address] VIRHemoglobin (Bld) [Mass/Vol]12.9 g/dMOhc78-08SulJyzlja [facility] HospitalComment on above:Performed By: #### CBCA #### [facility] ([facility]) [address] [place] [address] VIRLYMPHOCYTES ABSOLUTE COUNT (10*3/UL) BY AUTOMATED COUNT0.7 10*3/uLLow1.0-3.5Pro[facility] HospitalComment on above:Performed By: #### CBCA #### [facility] ([facility]) [address] [place] [address] VIRLYMPHOCYTES RELATIVE PERCENT BY AUTOMATED COUNT14.7 %Normal [facility] HospitalComment on above:Performed By: #### CBCA #### [facility] ([facility]) [address] [place] [address] VIRMCH (RBC) [Entitic mass]29.1 tuHlccif19-95NkrSdyfem Muñiz HospitalComment on above:Performed By: #### CBCA #### [facility] ([facility]) [address] [place] [address] VIRMCHC (RBC) [Mass/Vol]34.8 g/uKIsindw26-93WypVrwhuv Muñiz HospitalComment on above:Performed By: #### CBCA #### [facility] ([facility]) [address] [place] [address] VIRMCV (RBC) [Entitic vol]84 xRUylceb95-830ArySwpkbr [facility]ñiz HospitalComment on above:Performed By: #### CBCA #### [facility] ([facility]) [address] [place] [address] VIRMONOCYTES ABSOLUTE COUNT (10*3/UL) BY AUTOMATED COUNT0.3 10*3/uLNormal0.0-0.9ProMetrohealth Parma Medical Centerca [facility] HospitalComment on above:Performed By: #### CBCA #### [facility] ([facility]) [address] [place] [address] VIRMONOCYTES RELATIVE PERCENT BY AUTOMATED COUNT7.0 %Normal [facility] HospitalComment on above:Performed By: #### CBCA #### [facility] ([facility]) [address] [place] [address] VIRNEUTROPHILS ABSOLUTE COUNT BY AUTOMATED COUNT3.5 10*3/uL Normal1.5-6.6Pro[facility] HospitalComment on above:Performed By: #### CBCA #### [facility] ([facility]) [address] [place] [address] VIRNEUTROPHILS RELATIVE PERCENT BY AUTOMATED COUNT72.7 %Normal [facility] HospitalComment on above:Performed By: #### CBCA #### [facility] ([facility]) [address] [place] [address] VIRPlatelet mean volume (Bld) [Entitic vol]7.3 fLNormal7-12 [facility] HospitalComment on above:Performed By: #### CBCA #### [facility] ([facility]) [address] [place] [address] VIRPlatelets (Bld) [#/Vol]205 10*3/tWBpbhbh059-656XjmYpyznp [facility] HospitalComment on above:Performed By: #### CBCA #### [facility] ([facility]) [address] [place] [address] VIRRBC COUNT4.44 X10E12/LNormal4.1-5.7ProMetrohealth [facility] Medical Centerca [facility] on above:Performed By: #### CBCA #### [facility] ([facility]) [address] [place] [address] VIRWBC (Bld) [#/Vol]4.8 10*3/uLNormal4-11[facility] HospitalComment on above:Performed By: #### CBCA #### [facility] ([facility]) [address] [place] [address] VIRCOMPREHENSIVE METABOLIC PANELon 30-06-6424Akabpse [Mass/Vol] 3.5 g/dLNormal3.2-5.3[facility] HospitalComment on above:Performed By: #### CMP #### [facility] ([facility]) [address] [place] [address] VIRALP [Catalytic activity/Vol]55 U/YUdqngq66-713PiyHyjikk [facility] HospitalComment on above:Performed By: #### CMP #### [facility] ([facility]) [address] [place] [address] VIRALT [Catalytic activity/Vol]10 U/LNormal<=40Pro[facility]ñiz HospitalComment on above:Performed By: #### CMP #### [facility] ([facility]) [address] [place], [place] [address] VIRAnion gap [Moles/Vol]8 mmol/LNormal5-15Pro[facility] HospitalComment on above:Performed By: #### CMP #### [facility] ([facility]) [address] [place], [place] [address] VIRAST [Catalytic activity/Vol]23 U/LNormal<=41Pro[facility] HospitalComment on above:Performed By: #### CMP #### [facility] ([facility]) [address] [place], [place] [address] VIRBilirubin [Mass/Vol]0.3 mg/dLNormal0.3-1.2ProMedica [facility] HospitalComment on above:Performed By: #### CMP #### [facility] ([facility]) [address] [place], [place] [address] VIRCalcium [Mass/Vol]8.3 mg/dLLow8.5-10.5ProMedica [facility] HospitalComment on above:Performed By: #### CMP #### [facility] ([facility]) [address] [place], [place] [address] VIRChloride [Moles/Vol]110 mmol/MGhwr82-399KihRdzznz [facility]ñiz HospitalComment on above:Performed By: #### CMP #### [facility] ([facility]) [address] [place], [place] [address] VIRCO2 [Moles/Vol]25 mmol/KOrikzq82-20UflYxscip [facility] Comment on above:Performed By: #### CMP #### [facility] ([facility]) [address] [place], [place] [address] VIRCreatinine [Mass/Vol]1.58 mg/dLHigh0.60-1.30ProMedica [facility] HospitalComment on above:Result Comment: METHOD TRACEABLE TO IDMS STANDARD Performed By: #### CMP #### [facility] ([facility]) [address] [place] [address] VIRGFR/1.73 sq M.predicted among non-blacks MDRD (S/P/Bld) [Vol rate/Area]43 mL/min/{1.73_m2}Low>=60ProMetrohealth Par[facility] Medical Centerca [facility] HospitalComment on above: Result Comment: Reported eGFR is based on the CKD-EPI 2020 equation that does not use a race coefficient.Performed By: #### CMP #### [facility] ([facility]) [address] [place] [address] VIRGlucose [Mass/Vol]93 mg/fMDvhztj86-60LceWjfpzz [place] HospitalComment on above:Performed By: #### CMP #### [facility] ([facility]) [address] [place] [address] VIRPotassium [Moles/Vol]3.4 mmol/LLow3.5-5.0ProKettering Health Greene Memorial HospitalComment on above:Performed By: #### CMP #### [facility] ([facility]) [address] [place] [address] VIRProtein [Mass/Vol]5.7 g/dLLow6.0-8.0ProKettering Health Greene Memorial HospitalComment on above:Performed By: #### CMP #### [facility] ([facility]) [address] [place] [address] VIRSodium [Moles/Vol]143 mmol/UZsbevt417-941TwkSuypwc [place] HospitalComment on above:Performed By: #### CMP #### [facility] ([facility]) [address] [place] [address] VIRUrea nitrogen [Mass/Vol]25 mg/dLNormal5-27ProKettering Health Greene Memorial HospitalComment on above:Performed By: #### CMP #### [facility] ([facility]) [address] [place] [address] VIRLACTATE W/ REFLEXon 58-34-4188LSLDYYX W/REFLEX0.9 mmol/L Normal0.4-2.0ProWooster Community HospitalComment on above:Order Comment: Result did not trigger repeat Lactate, re-order if needed.Performed By: #### LACTS #### [facility] ([facility]) [address] [place] [address] VIRMAGNESIUMon 74-48-9998Jhdapvsme [Mass/Vol]2.1 mg/dLNormal 1.8-2.6ProWooster Community HospitalComment on above:Performed By: #### MG #### [facility] ([facility]) [address] [place] [address] VIRPOTASSIUMon 12-27-9931Cidbxlppo [Moles/Vol]4.0 mmol/LNormal 3.5-5.0ProWooster Community HospitalComment on above:Performed By: #### K #### [facility] ([facility]) [address] [place] [address] VIRPROCALCITONINon 47-10-8683SOHMPDVEZUVII<^0.05Normal<0.05 [facility] HospitalComment on above:Order Comment: <0.50 ng/mL - Low risk of severe sepsis and/or septic shock. <2.00 ng/mL - Recommend retesting within 6-24 hours. >2.00 ng/mL - High risk of sepsis and/or septic shock.Performed By: #### PCAL #### [facility] ([facility]) [address] [place] [address] VIRPROCALCITONIN<^0.05Normal<0.05ProK[facility] Comment on above:Order Comment: <0.50 ng/mL - Low risk of severe sepsis and/or septic shock. <2.00 ng/mL - Recommend retesting within 6-24 hours. >2.00 ng/mL - High risk of sepsis and/or septic shock.Performed By: #### PCAL #### [facility] ([facility]) [address] [place] [address] VIRURINALYSISon 34-06-4362Yqisgwilg Ql (U)NegativeNormal NegativeProMedica Fence Lake HospitalComment on above:Performed By: #### UA #### [facility] ([facility]) [address] [place] [address] VIRBLOOD/HGBNegativeNormalNegativeProMedica [facility] on above:Performed By: #### UA #### [facility] ([facility]) [address] [place] [address] VIRColor (U)YellowNormalYellow, ColorlessProMedica [facility]ence [facility] HospitalComment on above:Performed By: #### UA #### [facility] ([facility]) [address] [place] [address] VIRGlucose Ql (U)NegativeNormalNegativeProMedica [facility] HospitalComment on above:Performed By: #### UA #### [facility] ([facility]) [address] [place] [address] VIRKetones Ql (U)NegativeNormalNegativeProMedica [facility] HospitalComment on above:Performed By: #### UA #### [facility] ([facility]) [address] [place] [address] VIRLeukocyte esterase Test strip Ql (U)SmallAbnormalNegative [facility] HospitalComment on above:Performed By: #### UA #### [facility] ([facility]) [address] [place] [address] VIRMUCOUSPresentAbnormalNoneProMedica [facility] HospitalComment on above:Performed By: #### UA #### [facility] ([facility]) [address] [place] [address] VIRNitrite Ql (U)NegativeNormalNegativeProMedica Fence Lake HospitalComment on above:Performed By: #### UA #### [facility] ([facility]) [address] [place] [address] VIRPH,URINE6.0Xrnixn6.0-8.5Pro[facility] HospitalComment on above:Performed By: #### UA #### [facility] ([facility]) [address] [place] [id number] VIRProtein Ql (U)NegativeNormalNegativeProMedica Fence Lake HospitalComment on above:Performed By: #### UA #### [facility] ([facility]) [address] [place] [address] VIRR.B.[id number] [place] HospitalComment on above:Performed By: #### UA #### [facility] ([facility]) [address] [place] [id number] VIRSpecific gravity (U) [Rel density]1.042Jirhtl8.003-1.035 [facility] HospitalComment on above:Performed By: #### UA #### [facility] ([facility]) [address] [place] [address] VIRSQUAMOUS EPITHELIUM<^[id number] [facility] Comment on above:Performed By: #### UA #### [facility] ([facility]) [address] [place] [address] VIRTURBIDITYClearNormalClearProMedica Fence Lake HospitalComment on above:Performed By: #### UA #### [facility] ([facility]) [address] [place] [address] VIRUROBILINOGEN<1.1 eu/dLNormal<1.1 eu/dLProMedica Fence Lake HospitalComment on above:Performed By: #### UA #### [facility] ([facility]) [address] [place] [id number] VIRW.B.[id number] [facility] HospitalComment on above: Performed By: #### UA #### [facility] ([facility]) [address] [place] [address] VIRURINE CULTUREon [id number] identified Cx Nom (U) CULTURE RESULTS NO GROWTH AT <1000 CFU/mLNormalProWooster Community HospitalComment on above: Performed By: #### WCSUP #### [facility] ([facility]) [address] [place] [address] VIRVANCOMYCIN, RANDOMon [id number] ug/mLNormal 5.0-40.0ProWooster Community HospitalComment on above:Order Comment: Along with Rare Normal Skin [place].Performed By: #### MUNIRP #### [facility] ([facility]) [address] [place] [address] VIRBLOOD CULTUREon [id number] identified Cx Nom (Bld)No growth at 5 daysNormalUniversWilson Memorial HospitalComment on above:Order Comment: Prior to antibiotic administrationPerformed By: #### [id number] #### [facility] ([facility]) [address] [place], [place] [address]SRY WITH AUTO DIFFERENTIALon [id number] (Bld) [#/Vol] 0.05 10*3/uLNormal0.00-0.20UnCincinnati Children's Hospital Medical CenterComment on above: Performed By: #### [id number] ####[facility] (BEChartbeat)[address] [place], [place] [address]Lgobepcsg/100 WBC (Bld)1.1 %High0.0-1.0UnCincinnati Children's Hospital Medical CenterComment on above:Performed By: #### [id number] ####[facility] (BEChartbeat)[address] [place], [place] [address]Fcufkzvsjtn (Bld) [#/Vol]0.17 10*3/uL Normal0.00-0.50UnCincinnati Children's Hospital Medical CenterComment on above:Performed By: #### [id number] ####[facility] (BEAKER)[address] [place] [address] Eosinophils/100 WBC (Bld)3.9 %Normal0.0-6.0UnCincinnati Children's Hospital Medical Center Comment on above:Performed By: #### [id number] ####[facility] ([facility])[address] [place], [place] [address]Kngqcylfasx distribution width (RBC) [Ratio]15.2 % High11.5-15.0UnCincinnati Children's Hospital Medical CenterComment on above:Performed By: #### [id number] ####[facility] ([facility])[address] [place] [address] ERYTHROCYTE MEAN CORPUSCULAR HEMOGLOBIN CONCENTRATION (G/DL) BY YTFBVPGVA44.5 g/iHUrdkjk33.0-35.0UnCincinnati Children's Hospital Medical CenterComment on above:Performed By: #### [id number] ####[facility] ([facility])[address] [place], [place] [address]Syithoiuhb (Bld) [Volume fraction]34.0 %Low39.0-50.0UnCincinnati Children's Hospital Medical CenterComment on above:Performed By: #### [id number] ####[facility] ([facility])[address] [place], [place] [address]Zjhacjnlnw (Bld) [Mass/Vol]11.4 g/dL Low13.0-17.0UnCincinnati Children's Hospital Medical CenterComment on above:Performed By: #### [id number] ####[facility] ([facility])[address] [place] [address] Immature granulocytes (Bld) [#/Vol]0.01 10*3/uLNormal0.00-0.20UnCincinnati Children's Hospital Medical CenterComment on above:Performed By: #### [id number] ####[facility] ([facility])[address] [place], [place] [address]Rgziyxdm granulocytes/100 WBC (Bld)0.2 %Normal0.0-1.0UnCincinnati Children's Hospital Medical CenterComment on above: Performed By: #### [id number] ####[facility] ([facility])[address] [place], [place] [address]Hfujwtiixad (Bld) [#/Vol]0.69 10*3/uLLow1.20-4.00UnCincinnati Children's Hospital Medical CenterComment on above:Performed By: #### [id number] ####[facility] ([facility])[address] [place], [place] [address]Hbwvsazpvuy/100 WBC (Bld) 15.7 %Low20.0-45.0UnCincinnati Children's Hospital Medical CenterComment on above:Performed By: #### [id number] ####[facility] ([facility])[address] [place], [place] [address]VSA (RBC) [Entitic mass]29.2 ulMoocan51.0-33.0UnCincinnati Children's Hospital Medical CenterComment on above:Performed By: #### [id number] ####[facility] ([facility])[address] [place], [place] [address]SLN (RBC) [Entitic vol]87.2 fLNormal 82.0-98.0UnCincinnati Children's Hospital Medical CenterComment on above:Performed By: #### [id number] ####[facility] ([facility])[address] [place] [address] Monocytes (Bld) [#/Vol]0.42 10*3/uLNormal0.10-1.00UnCincinnati Children's Hospital Medical CenterComment on above:Performed By: #### [id number] ####[facility] ([facility])[address] [facility] [address]Wngsxsspd/100 WBC (Bld)9.5 %Normal 5.0-12.0UnCincinnati Children's Hospital Medical CenterComment on above:Performed By: #### [id number] ####[facility] ([facility])[address] [facility] [place] [address] Neutrophils (Bld) [#/Vol]3.06 10*3/uLNormal1.60-7.60UnCincinnati Children's Hospital Medical CenterComment on above:Performed By: #### [id number] ####[facility] ([facility])[address] [place] [address]Aolsmrzgzqc/100 WBC (Bld)69.6 %Normal 40.0-72.0UnCincinnati Children's Hospital Medical CenterComment on above:Performed By: #### [id number] ####[facility] ([facility])[address] [place] [address]QNZB (PER 100 WBCS) BY AUTOMATED COUNT0.0 %Xlrdrm5NjygfjotatCincinnati Children's Hospital Medical Center Comment on above:Performed By: #### [id number] ####[facility] ([facility])[address] [place] [address]BQSBCPQHK (10*3/UL) IN BLOOD AUTOMATED GARLF561 10*3/dTToppwk758-016IvltinatnrCincinnati Children's Hospital Medical CenterComment on above: Performed By: #### [id number] ####[facility] ([facility])[address] [place] [address]WXL (Bld) [#/Vol]3.90 10*6/uLLow4.20-5.70UnCincinnati Children's Hospital Medical CenterComment on above:Performed By: #### [id number] ####[facility] ([facility])[address] [place], [place] [address]ACY (Bld) [#/Vol]4.40 10*3/uLNormal 4.00-10.60UnCincinnati Children's Hospital Medical CenterComment on above:Performed By: #### [id number] ####[facility] ([facility])[address] [place] [address] COMPREHENSIVE METABOLIC PANELon 25-76-1505Iaugagq [Mass/Vol]3.5 g/dLNormal 3.5-5.7UnCincinnati Children's Hospital Medical CenterComment on above:Performed By: #### [id number] #### [facility] ([facility]) [address] [place] [address]ZQL [Catalytic activity/Vol]54 U/TFqezvh56-744FpsdvvnwytCincinnati Children's Hospital Medical CenterComment on above:Performed By: #### [id number] #### [facility] ([facility]) [address] [place], [place] [address]EQG [Catalytic activity/Vol]16 U/LNormal7-52UnCincinnati Children's Hospital Medical CenterComment on above:Performed By: #### [id number] #### [facility] ([facility]) [address] [place], [place] [address]Ttrma gap [Moles/Vol]10 mmol/LNormal7-20UnCincinnati Children's Hospital Medical CenterComment on above:Performed By: #### [id number] #### [facility] ([facility]) [address] [place], [place] [address]ZYB [Catalytic activity/Vol]25 U/OYmsbsn84-32UkmfydpdmnCincinnati Children's Hospital Medical CenterComment on above:Performed By: #### [id number] #### [facility] ([facility]) [address] [place], [place] [address]Fjruvucyc [Mass/Vol]0.5 mg/dLNormal0.3-1.0UnCincinnati Children's Hospital Medical CenterComment on above:Performed By: #### [id number] #### [facility] ([facility]) [address] [place], [place] [address]Zqtkkyg [Mass/Vol]8.2 mg/dLLow8.6-10.3UnCincinnati Children's Hospital Medical CenterComment on above:Performed By: #### [id number] #### [facility] ([facility]) [address] [place], [place] [address]Duixnpvq [Moles/Vol]107 mmol/XFvpimw39-518CvmmpoyvjqCincinnati Children's Hospital Medical CenterComment on above:Performed By: #### [id number] #### [facility] ([facility]) [address] [place], [place] [address]IK8 [Moles/Vol]26 mmol/BYmprpy63-75XmftnrcviuCincinnati Children's Hospital Medical CenterComment on above:Performed By: #### [id number] #### [facility] ([facility]) [address] [place], [place] [address]Okkjkrfaes [Mass/Vol]1.85 mg/dLHigh0.70-1.30UnCincinnati Children's Hospital Medical CenterComment on above:Performed By: #### [id number] #### [facility] ([facility]) [address] [place], [place] [address]WTJZXBOAAK FILTRATION RATE ML/MIN/1.73 SQ M.QBZGOTIKC65.3 mL/min/1.73m*2Low>60.0UnCincinnati Children's Hospital Medical CenterComment on above:Result Comment: [facility]???s estimated glomerular filtration rate (eGFR) [...] potential consequences that do not disproportionately affect anyone group of individuals.Performed By: #### [id number] #### [facility] ([facility]) [address] [place], [place] [address]Raqtmoq [Mass/Vol]113 mg/eMNytc36-081DcmlaqkepuCincinnati Children's Hospital Medical CenterComment on above:Performed By: #### [id number] #### [facility] ([facility]) [address] [place], [place] [address]Zozjsupzh [Moles/Vol]3.6 mmol/LNormal3.5-5.1UnCincinnati Children's Hospital Medical CenterComment on above:Performed By: #### [id number] #### [facility] ([facility]) [address] [place], [place] [address]Ofaxzpr [Mass/Vol]5.7 g/dLLow6.0-8.3UnCincinnati Children's Hospital Medical CenterComment on above:Performed By: #### [id number] #### [facility] ([facility]) [address] [place], [place] [address]Npfibi [Moles/Vol]139 mmol/ISehubh498-722KgaekmfalqCincinnati Children's Hospital Medical CenterComment on above:Performed By: #### [id number] #### [facility] ([facility]) [address] [place], [place] [address]Dzlx nitrogen [Mass/Vol]33 mg/dLHigh7-25UnCincinnati Children's Hospital Medical CenterComment on above:Performed By: #### [id number] #### [facility] ([place]) [address] [place], [place] [address]SMEC NITROGEN/CREATININE (MASS RATIO) IN SER/PLAS17.8Normal [facility] CenterComment on above:Performed By: #### [id number] #### [facility] ([place]) [address] [place], [place] [address]XLDDOVTbi 51-08-2738LESIEKQ Attestation signed by Olive Bautista MD at 04/21/2025 12:45 AM By [...] I have recommended pt be transferred to [facility] or [facility] Dr Mccoy who will [...] (LASIX) 40 mg, oral, Every morning glucosamine/chondroitin weber A/C (VTFYCYLWHJM-WQJDWKBXITQ-UWC C ORAL) 1 capsule, oral, Daily hydrALAZINE [...] Physical Exam Vitals reviewe (more content not included)...[facility] [id number] contacted pt in regard to shoes that were left in dept. Pt aware and will see if daughter can pear picker for him. Belongings placed back in lockers. Mariella Henson RN 05/29/[address]University Hospitals St[address] John Medical Center CenterEDNURSMode of arrival (squad #, walk in, police, etc): Walk in Chief complaint(s): Pacemaker issue Arrival Note (brief scenario, treatment DIRECTOR OF HOSPITALITY, etc): Finished antibiotics last week and then noticed drainage from the pacemaker area. The area is red and warm to the touch. Stated that it looks like it is pushing out of his skin. Has had the pacemaker for 2 years and recently had this problem a couple months ago. NormalUnACMC Healthcare System Glenbeigh [id number] of Present Illness Chief Complaint Patient presents with ??? Pacemaker Problem Initial evaluation done by Dr. Lalo Dennison at 10:13 AM. The pt is an 84 y/o male presenting to the ED for the chief complaint of a pacemaker problem. The pt states that he had a pacemaker placed about two years ago and lately it has been leaking fluid and looks infected. He denies any fever. History provided by: Patient Roy Coma Scale Score: 15 History Medical History[1] [...] nguyen, documented on behalf of Dr. Aden Dennison DO. Chief complaint: Pacemaker Problem Differential Diagnosis includes but is not limited to: Cellulitis, pacemaker infection. Plan of Care: I spoke with electrophysiology here they came and evaluated patient felt he needed a leadless pacemaker which they are not able to do at [facility] today he spoke with Dr. Car over at [facility] who agreed to do it today. On re-evaluation, patient is resting comfortably. Results were discussed. Based on the diagnostic results and physical exam[facility] [...] signing this emergency patient record, the Emergency Physician/ENTERPRISE SOFTWARE ENGINEER/PA-C attests that all entries made into the electronic medical record by the scribe prior to the Physician/ENTERPRISE SOFTWARE ENGINEER/PA-C signature reflect an accurate accounting of the evaluation and care rendered by that Emergency Physician/ENTERPRISE SOFTWARE ENGINEER/PA-C. The Emergency Physician/ENTERPRISE SOFTWARE ENGINEER/PA-C assumes full responsibility for those entries. The Emergency Physician/ENTERPRISE SOFTWARE ENGINEER/PA-C also attests that any patient testing or treatment that was instituted by nursing staff. Aden Dennison DO 04/21/25 1527 [1] Past Medical History: [...] Alcohol use: Not Currently ??? Drug use: NeverNormalUniversWilson Memorial HospitalHIGH SENSITIVITY TROPONIN Ion [id number] TROPONIN I (NG/L)71 ng/LCritically high<20UnCincinnati Children's Hospital Medical CenterComment on above:Performed By: #### [id number] ####[facility] (BEAKER)[address] [place], [place] [address]XUEOPW ACID WITH 4 HOUR REFLEXon 46-81-0357RIHUBWO (MMOL/L) IN SER/PLAS0.9 mmol/LNormal0.5-2.2UnCincinnati Children's Hospital Medical CenterComment on above:Performed By: #### [id number] #### [facility] (BEAKER) [address] [place], [place] [address]ZRJHVYDAZAI WOUND CULTUREon 82-83-7238HIUTNMKVYWN WOUND CULTURE CULTURE RESULTS STAPHYLOCOCCUS AUREUS Few [...] <=^0.5 F Cefazolin S F Susceptibility Comment FNormalToledo HospitalComment on above:Order Comment: Along with Rare Normal Skin [place].Performed By: #### WCSUP #### [facility] (TT) [address] [place] [address] VIRXR CHEST 2 VWSon [id number] CHEST 2 VWSXR CHEST 2 VWS Chest 2 views History: chest wall tenderness Comparison: 03/26/2023 Findings: Chest 2 views. Stable cardiac mediastinal silhouette. 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 Degenerative change ofthe thoracolumbar spine. Impression: No evident acute cardiopulmonary process. Finalized by Lio Licea MD on 04/19/2025 5:19 PMNormalToledo HospitalOffice Visiton 09-26-5611Csxvle-up [id number] Juan Jose Austin 1940 M Date Provider Department Center 02/23/2025 OLIVE ROBERTSON Family History Problem Relation Age of Onset Heart failure Mother Lung cancer Father Family Status - Relation Status Age at Mother Father Level of Service:70586 [place] OFFICE/OUTPATIENT ESTABLISHED LOW MDM [facility] 46-53-9521Sfsusd-up visit [id number] Juan Jose Austin 1940 M Date Provider Department Center 02/17/2025 JESSICA ALEJANDRO [facility] Family History Problem Relation Age of Onset Heart failure Mother Lung cancer Father Family Status - Relation Status Age at Mother Father Level of Service:70897 [place] OFFICE/OUTPATIENT ESTABLISHED LOW MDM 20 [facility] 96-56-4607Tpqflw-up visit [id number] Juan Jose Austin 1940 M Date Provider Department Center 02/02/2025 OLIVE ROBERTSON Family History Problem Relation Age of Onset Heart failure Mother Lung cancer Father Family Status - Relation Status Age at Mother Father Level of Service:39650 [place] OFFICE/OUTPATIENT ESTABLISHED LOW MDM 20 MINNoSelect Medical [facility], AvonTISSUE CULTUREon 64-69-8155Yvxxlnih identified Cx Nom (Unsp spec)STAPHYLOCOCCUS AUREUSAbnormalUniTrumbull Memorial HospitalComcorewell health greenville hospital on above:Result Comment: Rare Growth Staphylococcus aureus For Susceptibility Results Please Refer to By: #### [id number] ####[facility] ([facility])[address] [place] [place] [address]ZZCW STAIN RESULTNormalUniversWilson Memorial HospitalComment on above:Result Comment: Rare Polymorphonuclear leukocytes No organisms seenPerformed By: #### [id number] ####[facility] ([facility])[address] [place] [address]SOMSZ CULTUREon 60-23-6575Wvdlgkzsxhs [Susc]<=0.5 ResistantUnCincinnati Children's Hospital Medical CenterComment on above:Performed By: #### [id number] #### [facility] ([facility]) [address] [place] [address]Vvnokdqks [Susc]<=0.25SusceptibleUnCincinnati Children's Hospital Medical CenterComment on above:Performed By: #### [id number] #### [facility] ([facility]) [address] [place] [address]Dlohdjgogmob [Susc]<=0.5SusceptibleUnCincinnati Children's Hospital Medical CenterComment on above:Performed By: #### [id number] #### [facility] ([facility]) [address] [place] [address]Vnieibsfdygm+Sulfamethoxazole [Susc]<=0.5/9.5Susceptible [facility] CenterComment on above:Performed By: #### [id number] #### [facility] ([facility]) [address] [place], [place] [address]Iojjgcplug [Susc]2 ug/mlSusceptibleUnCincinnati Children's Hospital Medical CenterComment on above:Performed By: #### [id number] #### [facility] (BEAKER) [address] [place] [address]RDyp 36-36-8565JCEO Electrophysiology Consult Note Reason for visit: S/P [...] moderate, relieved by rest. He was evaluated [facility] ED and his CBC, BMP, [...] artifact is not c (more content not included)...NormalUniversity Hospitals Lake West Medical CenterNURSNOTEon 01-21-2025 NURSNOTERN educated pt on d/c instructions. This included: site care, limited physical [...] wheeled off of unit with all of belongings.NormalUniversity Hospitals Lake West Medical CenterNURSNOTECHG wipes and betadine nasal swabs completed.Normal [facility] CenterBasic Metabolic Panelon 02-46-7639Behib gap [Moles/Vol]9 mmol/L9 - 16 mmol/LBon Secours LifeBlinx HealthCalcium [Mass/Vol]8.9 mg/dL8.6 - 10.4 mg/dLBon Secours LifeBlinx HealthChloride [Moles/Vol]106 mmol/L98 - 107 mmol/LBon Secours LifeBlinx HealthCO2 [Moles/Vol]26 mmol/L20 - 31 mmol/LBon SecSevenLunchesCreatinine [Mass/Vol]2.0 mg/dLHigh0.70 - 1.20 mg/dLBon Secours LifeBlinx HealthEst, Glomelvin Filt Nqsq93Vrb- PINFBon SecSevenLunches Comment on above: These results are not [...] therapy that affects renal tubular secretion. Glucose [Mass/Vol]88 mg/dL74 - 99 mg/dLBon [facility] Rittman Medical CenterInterpretation and review of laboratory resultsAbnormalSentara Martha Jefferson HospitalPotassium [Moles/Vol]4.5 mmol/L3.7 - 5.3 mmol/LBon [facility] - Rittman Medical CenterSodium [Moles/Vol] 141 mmol/L136 - 145 mmol/LBon [facility] Rittman Medical CenterUrea nitrogen [Mass/Vol]31 mg/dLHigh8 - 23 mg/dLBon [facility] - Rittman Medical CenterUrea nitrogen/Creatinine [Mass ratio]16 mg/mg9 - 20Bon [facility] Avera HealthBasic Metabolic Profon 79-98-1086Vaskv gap [Moles/Vol]9 mmol/LNormal9-16Sycamore Medical CenterComment on above:Performed By: #### TIP, BMP #### [address] [place] [address] Franchise Specialist: Augusto Sidhu MDBUN/CRE Hsfbt70Cysnvf5-96Lptkt [facility] Comment on above:Performed By: #### TIP, BMP #### [address] [place] [address] Franchise Specialist: SHEREE Olivasalcium [Mass/Vol]8.9 mg/dLNormal8.6-10.4Sycamore Medical CenterComment on above:Performed By: #### TIP, BMP #### [address] [place] [address] Franchise Specialist: Augusto Sidhu MDChloride [Moles/Vol]106 mmol/DAgvngo95-238HktftSycamore Medical CenterComment on above:Performed By: #### CDP, BMP #### [address] [place] [address] Franchise Specialist: SHEREE OlivasO2 [Moles/Vol]26 mmol/MVljici48-33LmoukSycamore Medical CenterComment on above:Performed By: #### TIP, BMP #### [address] [place] [address] Franchise Specialist: SHEREE Olivasreatinine [Mass/Vol]2.0 mg/dLHigh0.70-1.20Sy[facility] Medical CenterComment on above:Performed By: #### TIP, BMP #### [address] [place] [address] Franchise Specialist: Augusto Sidhu MDGFR/1.73 sq M.predicted among non-blacks MDRD (S/P/Bld) [Vol rate/Area]33 mL/min/{1.73_m2}Low>60Sycamore Medical CenterComment on above:Result Comment: These results are not intended for [...] or following therapy that affects renal tubular secretion.Performed By: #### TIP, BMP #### [address] [place] [address] Franchise Specialist: Augusto Sidhu MDGlucose [Mass/Vol]88 mg/wMBibbaj21-91VlvohCherrington HospitalComment on above:Performed By: #### TIP, BMP #### [address] [place] [address] Franchise Specialist: JEREMY Olivasotassium [Moles/Vol]4.5 mmol/LNormal3.7-5.3MACMC Healthcare System HospitalComment on above:Performed By: #### CDP, BMP #### [facility] [address] [place] [address] Franchise Specialist: ROCIO Olivasodium [Moles/Vol]141 mmol/XWekzct990-664UrednSycamore Medical CenterComment on above:Performed By: #### CDP, BMP #### [facility] [address] [place] [address] Franchise Specialist: Augusto Sidhu MDUrea nitrogen [Mass/Vol]31 mg/dLHigh8-23Sycamore Medical CenterComment on above:Performed By: #### TIP, BMP #### [facility] [address] [place] [address] Franchise Specialist: Augusto Sidhu MDCBC with Auto Differentialon 20-73-6061Ennskjqiq (Bld) [#/Vol]0.09 10*3/uLBon Secours Mercy HealthBasophils/100 WBC (Bld)1 %0 - 2 %[facility] Mer[facility] HealthEosinophils (Bld) [#/Vol]0.14 10*3/uLBon Secours Mercy HealthEosinophils/100 WBC (Bld)2 %1 - 4 %[facility] HealthErythrocyte distribution width (RBC) [Ratio]14.8 %High11.8 - 14.4 %[facility] Hematocrit (Bld) [Volume fraction]36.3 %Low40.7 - 50.3 %[facility] Hemoglobin (Bld) [Mass/Vol]11.6 g/dLLow13.0 - 17.0 g/dLBon Secours Mercy Health Immature granulocytes (Bld) [#/Vol]0.03 10*3/uLBon Secours Mercy HealthImmature granulocytes/100 WBC (Bld)0 %0[facility] HealthInterpretation and review of laboratory resultsAbnormalBon Secours Mercy HealthLymphocytes/100 WBC (Bld)9 %Low24 - 43 %[facility] HealthLymphocytes/100 WBC (Bld)0.75 %LowBon Secours Mercy HealthMCH (RBC) [Entitic mass]27.7 pg25.2 - 33.5 pgBon [facility]UM[facility] HospitalHC (RBC) [Mass/Vol]32 g/dL28.4 - 34.8 g/dLBon [facility] MCV (RBC) [Entitic vol]86.6 fL82.6 - 102.9 fLSentara Martha Jefferson Hospital Monocytes/100 WBC (Bld)6 %3 - 12 %[facility] HospitalMonocytes/100 WBC (Bld)0.47 %[facility] Jefferson HospitalNeutrophils/100 WBC (Bld)82 %High36 - 65 %[facility] HospitalNucleated RBC/100 WBC (Bld) [Ratio]0 %0.0 per 100 WBCSentara Martha Jefferson HospitalPlatelet mean volume (Bld) [Entitic vol]9.3 fL8.1 - 13.5 fL [facility] Jefferson HospitalPlatelets (Bld) [#/Vol]251 10*3/uLSentara Martha Jefferson HospitalRBC (Bld) [#/Vol]4.19 10*6/uLLow4.21 - 5.77 m/[facility] [facility] Segmented neutrophils/100 WBC (Bld)6.64 %[facility] Jefferson HospitalWBC other (Bld) [#/Vol]8.1Bon [facility] / Avera HealthCBC with Diffon [id number]. Basophil0.09 k/uLNormal0.00-0.20[facility] Medical CenterComment on above:Performed By: #### TIP, BMP #### [address] [place] [address] Franchise Specialist: Trevor Olivas.Imm.Granulocyte0.03 k/uLNormal0.00-0.30[facility] Medical CenterComment on above:Performed By: #### TIP, BMP #### [address] [place] [address] Franchise Specialist: Trevor Olivas.Neutrophil (Seg)6.64 k/uLNormal1.50-8.10[facility] HospitalComment on above:Performed By: #### CDP, BMP #### [address] [place] [address] Franchise Specialist: Augusto Sidhu MDBasophils/100 WBC (Bld)1 %Normal0-2[facility] HospitalComment on above:Performed By: #### CDP, BMP #### [address] [place] [address] Franchise Specialist: Augusto Sidhu MDEosinophils (Bld) [#/Vol]0.14 10*3/uLNormal 0.00-0.44[facility] HospitalComment on above:Performed By: #### CDP, BMP #### [address] [place] [address] Franchise Specialist: MOLLY Olivasosinophils/100 WBC (Bld)2 %Normal1-4[facility] HospitalComment on above:Performed By: #### CDP, BMP #### [address] [place] [address] Franchise Specialist: Augusto Sidhu MDErythrocyte distribution width (RBC) [Ratio]14.8 % High11.8-14.4[facility] HospitalComment on above:Performed By: #### CDP, BMP #### [address] [place] [address] Franchise Specialist: Augusto Sidhu MDHematocrit (Bld) [Volume fraction]36.3 %Low 40.7-50.3Mmarymount hospitaly Volcano HospitalComment on above:Performed By: #### CDP, BMP #### [address] [place] [id number] Franchise Specialist: Augusto Sidhu MDHemoglobin (Bld) [Mass/Vol]11.6 g/dLLow13.0-17.0 [facility] HospitalComment on above:Performed By: #### CDP, BMP #### [address] [place] [address] Franchise Specialist: Mariel Olivasture granulocytes/100 WBC (Bld)0 %Ombnpy4Ppjqt Tiffin HospitalComment on above:Performed By: #### CDP, BMP #### [address] [place], [place] [address] Franchise Specialist: Gay Olivasmphocytes (Bld) [#/Vol]0.75 10*3/uLLow1.10-3.70 [facility] HospitalComment on above:Performed By: #### CDP, BMP #### [address] [place], [facility]83 Franchise Specialist: Gay Olivasmphocytes/100 WBC (Bld)9 %Mau73-40Ztzzu [facility]iffin HospitalComment on above:Performed By: #### CDP, BMP #### [address] [place] [address] Franchise Specialist: DANDRE Olivas (RBC) [Entitic mass]27.7 aqUyiysj77.2-33.5 [facility] HospitalComment on above:Performed By: #### CDP, BMP #### [address] [place], [facility]83 Franchise Specialist: DANDRE OlivasC (RBC) [Mass/Vol]32.0 g/zUParqiz57.4-34.8[facility] HospitalComment on above:Performed By: #### CDP, BMP #### [address] [place], [place] [id number] Franchise Specialist: LORNA OlivasCV (RBC) [Entitic vol]86.6 mXHpbzhb33.6-102.9 [facility] HospitalComment on above:Performed By: #### CDP, BMP #### [address] [place] [address] Franchise Specialist: LORNA Olivasonocytes (Bld) [#/Vol]0.47 10*3/uLNormal0.10-1.20 [facility] Medical CenterComment on above:Performed By: #### CDP, BMP #### [address] [place], [place] [address]83 Franchise Specialist: LORNA Olivasonocytes/100 WBC (Bld)6 %Normal3-12[facility]ore Medical CenterComment on above:Performed By: #### CDP, BMP #### [address] [place] [address] Franchise Specialist: Navin Olivasutrophil (Seg)82 %Mnqo92-42EdiipSycamore Medical Center Comment on above:Performed By: #### CDP, BMP #### [address] [place] [address] Franchise Specialist: Augusto Sidhu MDNRBC Automated0.0 per 100 WBCNormal0.0[facility]ore Medical CenterComment on above:Performed By: #### CDP, BMP #### [address] [place] [address] Franchise Specialist: Micah Olivas mean volume (Bld) [Entitic vol]9.3 fL Normal8.1-13.5[facility]ore Medical CenterComment on above:Performed By: #### CDP, BMP #### [address] [place], [place] [address]83 Franchise Specialist: JEREMY Olivaslatelets (Bld) [#/Vol]251 10*3/jHFxgwdq497-629 [facility] Medical CenterComment on above:Performed By: #### CDP, BMP #### [address] [place] [address] Franchise Specialist: ABEL Olivas ([facility]) [#/Vol]4.19 10*6/uLLow4.21-5.77[facility] HospitalComment on above:Performed By: #### CDP, BMP #### [facility] [address] [place] [address] Franchise Specialist: PANDA Olivas ([facility]) [#/Vol]8.1 10*3/uLNormal3.5-11.3[facility] HospitalComment on above:Performed By: #### CDP, BMP #### [facility] [address] [place], [place] [id number] Franchise Specialist: Augusto Sidhu MDOffice Visiton [id number]-up [id number] Juan Jose Austin 1940 M Date Provider Department Center 01/19/2025 OLIVE ROBERTSON INESSA Clements Family History Problem Relation Age of Onset Heart failure Mother Lung cancer Father Family Status - Relation Status Age at Mother Father Level of Service:29265 [place] OFFICE/OUTPATIENT ESTABLISHED LOW MDM 20 [facility] HospitalOrders Onlyon [id number] [id number] Juan Jose Austin 1940 M Date Provider Department Center 01/19/2025 ROMEL LANDEROS INESSA Clements Family History Problem Relation Age of Onset Heart failure Mother Lung cancer Father Family Status - Relation Status Age at Mother Father DeceasedNormalUniversWilson Memorial HospitalOffice Visiton [id number]-up [id number] Juan Jose Austin 1940 M Date Provider Department Center 01/08/2025 KEVEN PULIDO INESSA [facility] Family History Problem Relation Age of Onset Heart failure Mother Lung cancer Father Family Status - Relation Status Age at Mother Father Level of Service:52864 [place] OFFICE/OUTPATIENT ESTABLISHED MOD MDM 30 [facility] HospitalCult,Woundon 89-72-6060Awdr,WoundSpecimen Description .ABSCESS .CHEST SWAB Direct Exam NO [...] therapeutic consideration. Tetracycline <=1 SUSCEPTIBLE Trimethoprim/Sulfa <=10 SUSCEPTIBLESusceptibleMercy Rockville General HospitalComment on above:Performed By: #### [facility] ####[address] [place] [address] lab Director: Lisset Kramer [id number] () Office (HEMASA) JUAN JOSE AUSTIN ([id number]) 1940 M Date Time Provider Department 10/23/24 9:40 AM GRAEME VAZQUEZ During your visit today, we recorded the following information about you: Temperature Pulse Respiration Blood pressure 97.7 degrees 63/minute 18/minute 157/76 Weight 76.7 kg Jessica Cervantes 10/23/2024 9:[address] CAP scans in 6 months Labs same day RTC 1 week after to review Graeme Vazquez MD 10/23/2024 1:11 PM Signed NAME: Juan Jose Austin CLINIC NO.: [id number] DATE OF SERVICE: October 23, 2024 (Eve) Some elements in this clinic note that are critical to medical decision making have been carefully reviewed and included from a prior clinic note dated: August 21, 2024 (Eve) Referring Provider: Dr. Galen Bhatt Additional Clinicians involved in Juan Jose Austin's care: Dr. Sergio Sneed (PCP), Dr. Galen Bhatt, Dr. Jian [...] pelvis. 07/10/2024 - EGD/Colonoscopy: with Dr. Jacob Bear at [facility] Diverticulitis A. Duodenum, biopsy: - Duodenal mucosa [...] to suggest obstruction. 03/22/2024-04/12/2024 - Admitted at [facility] for non-ST elevated myoc (more content not included)...NormalFayette County Memorial Hospital [id number] [Catalytic activity/Vol]19 U/L10 - 50 U/LBon [facility] [Catalytic activity/Vol]19 U/CXxrksw02-68TrdknSycamore Medical CenterComment on above:Performed By: #### ALT, BMP, AST #### [facility] [address] [place] [address] Franchise Specialist: Raphael Olivas [id number] [Catalytic activity/Vol]28 U/L 10 - 50 U/LBon [facility]itt[facility] Medical CenterAST [Catalytic activity/Vol]28 U/RYanjhv10-20 [facility] Medical CenterComment on above:Performed By: #### ALT, BMP, AST #### [facility] [address] [place] [address] Franchise Specialist: Al Olivas Metabolic Panelon 58-18-5635Mdtvt gap [Moles/Vol]10 mmol/L9 - 16 mmol/LBon [facility] LifeBlinx [facility] HospitalCalcium [Mass/Vol]9.3 mg/dL8.6 - 10.4 mg/dLBon [facility] LifeBlinx [facility]iance HospitalChloride [Moles/Vol]109 mmol/LHigh 98 - 107 mmol/LBon [facility] LifeBlinx [facility] HospitalCO2 [Moles/Vol]27 mmol/L20 - 31 mmol/LBon [facility] [employer].[facility] Memorial HospitalCreatinine [Mass/Vol]1.7 mg/dLHigh0.70 - 1.20 mg/dLBon [facility] RABTEst, Glom Filt Odkr82Nzc- PINFBon [facility] Comment on above: These results are not [...] therapy that affects renal tubular secretion. Glucose [Mass/Vol]101 mg/fJMrcp48 - 99 mg/dLBon St. John'S Health CenterBangcle Interpretation and review of laboratory resultsAbnormalBon St. John'S Health CenterBangcle Potassium [Moles/Vol]4.5 mmol/L3.7 - 5.3 mmol/LBon [facility] CenterSevenLunchesSodium [Moles/Vol]146 mmol/LTsfx499 - 145 mmol/LBon [facility] Ritt[facility] Medical CenterUrea nitrogen [Mass/Vol]35 mg/dLHigh8 - 23 mg/dLBon [facility] Ritt[facility] Medical CenterUrea nitrogen/Creatinine [Mass ratio]21 mg/mgHigh9 - 20Bon [facility] Ritt[facility] Medical CenterBasic Metabolic Profon 04-30-8465Bxcif gap [Moles/Vol]10 mmol/LNormal9-16[facility] Medical CenterComment on above:Performed By: #### ALT, BMP, AST #### [address] [place], [place] [id number] Franchise Specialist: Augusto Sidhu MDBUN/CRE Crwkd75Fvkq3-30FxavqSycamore Medical Center Comment on above:Performed By: #### ALT, BMP, AST #### [address] [place], [place] 3[address] Franchise Specialist: SHEREE Olivasalcium [Mass/Vol]9.3 mg/dLNormal8.6-10.4[facility] Medical CenterComment on above:Performed By: #### ALT, BMP, AST #### [address] [place], [place] [address]283 Franchise Specialist: SHEREE Olivashloride [Moles/Vol]109 mmol/ZBcbk51-762ZihfoSycamore Medical CenterComment on above:Performed By: #### ALT, BMP, AST #### [address] [place], [place] [address]83 Franchise Specialist: Augusto Sidhu MDCO2 [Moles/Vol]27 mmol/AFlsror12-21OuiehSycamore Medical CenterComment on above:Performed By: #### ALT, BMP, AST #### [address] [place] [address] Franchise Specialist: SHEREE Olivasreatinine [Mass/Vol]1.7 mg/dLHigh0.70-1.20[facility] Medical CenterComment on above:Performed By: #### ALT, BMP, AST #### [address] [place] [address] Franchise Specialist: Augusto Sidhu MDGFR/1.73 sq M.predicted among non-blacks MDRD (S/P/Bld) [Vol rate/Area]40 mL/min/{1.73_m2}Low>60MerCleveland Clinic Euclid Hospital HospitalComment on above:Result Comment: These results are not intended for [...] or following therapy that affects renal tubular secretion.Performed By: #### ALT, BMP, AST #### [address] [place] [address] Franchise Specialist: Augusto Sidhu MDGlucose [Mass/Vol]101 mg/kDGxiv35-74Tyofh Tiffin HospitalComment on above:Performed By: #### ALT, BMP, AST #### [address] [place] [address] Franchise Specialist: JEREMY Olivasotassium [Moles/Vol]4.5 mmol/LNormal3.7-5.3[facility]cano HospitalComment on above:Performed By: #### ALT, BMP, AST #### [address] [place] [address] Franchise Specialist: ROCIO Olivasodium [Moles/Vol]146 mmol/ZSmoc756-248BbsxeSycamore Medical CenterComment on above:Performed By: #### ALT, BMP, AST #### [address] [place] [address] Franchise Specialist: Augusto Sidhu MDUrea nitrogen [Mass/Vol]35 mg/dLHigh8-23Sy[facility]ore Medical CenterComment on above:Performed By: #### ALT, BMP, AST #### [address] [place], [place] [address] Franchise Specialist: Augusto Sidhu MDLipid Panelon 84-18-7866Pjbmvrlroyk [Mass/Vol]134 mg/dL0 - 199 mg/dLBon [facility] Ritt[facility] Medical CenterComment on above: Cholesterol Guidelines: <200 Desirable 200-240 Borderline >240 Undesirable Cholesterol in HDL [Mass/Vol]51 mg/dL40 - PINF mg/dLBon [facility] Comment on above: HDL Guidelines: <40 Undesirable 40-59 Borderline >59 Desirable Cholesterol in LDL [Mass/Vol]65 mg/dL0 - 100 mg/dLBon [facility] RABT Comment on above: LDL Guidelines: <100 Desirable 100-129 Near to/above Desirable 130-159 Borderline >159 Undesirable Direct (measured) LDL and calculated LDL are not interchangeable tests. Cholesterol in VLDL [Mass/Vol]18 mg/dL1 - 30 mg/dLBon [facility] Cholesterol.total/Cholesterol in HDL [Mass ratio]2.6 {ratio}[facility] Hoot.MeTriglyceride [Mass/Vol]92 mg/dLNINF - 150 mg/dLBon [facility] [employer] Comment on above: Triglyceride Guidelines: <150 Desirable 150-199 Borderline 200-499 High >499 Very high Based on AHA Guidelines for fasting triglyceride, July 2012. [facility] CoachUpLipid Profileon 69-40-9540Fqjusuxsyra [Mass/Vol]134 mg/dLNormal0-199Sy[facility]ore Medical CenterComment on above:Result Comment: Cholesterol Guidelines: <200 Desirable 200-240 Borderline >240 UndesirablePerformed By: #### LIPR ####[facility] [address] [place] [address] Lab Director: SHEREE Kramerholesterol in HDL [Mass/Vol]51 mg/dLNormal>40Sycamore Medical CenterComment on above:Result Comment: HDL Guidelines: <40 Undesirable 40-59 Borderline >59 DesirablePerformed By: #### LIPR ####[facility] [address] [place], [place] [id number] Lab Director: SHEREE Kramerholesterol in LDL [Mass/Vol]65 mg/dLNormal0-100[facility] Medical CenterComment on above:Result Comment: LDL Guidelines: <100 Desirable 100-129 Near to/above Desirable 130-159 Borderline >159 Undesirable Direct (measured) LDL and calculated LDL are not interchangeable tests.Performed By: #### LIPR ####[facility] [address] [place] [phone] Director: SHEREE Kramerholesterol in VLDL [Mass/Vol]18 mg/dLNormal 1-30MerUniversity of Connecticut Health Center/John Dempsey HospitalComment on above:Performed By: #### LIPR ####[facility] [address] [place] [address] Lab Director: Bebo Kramer.total/Cholesterol in HDL [Mass ratio]2.6 {ratio}Normal [facility] Medical CenterComment on above:Performed By: #### LIPR ####[facility] [address] [place] [address] Lab Director: Hnug Nguyen MDTriglyceride [Mass/Vol]92 mg/dLNormal<150Sy[facility]ore Medical CenterComment on above:Result Comment: Triglyceride Guidelines: <150 Desirable 150-199 Borderline 200-499 High >499 Very high Based on AHA Guidelines for fasting triglyceride, July 2012.Performed By: #### LIPR ####[facility] [place] [address] Lab Director: Hung Nguyen MDNo Panel Informationon 42-24-2063Cvc [facility] Ritt[facility] Medical CenterT4, Freeon 82-47-7511Afne T4 [Mass/Vol]1.1 ng/dL0.92 - 1.68 ng/dLBon [facility] / Avera HealthTSHon 85-26-4870Leaykfkrbpgbuw and review of laboratory resultsAbnormalCritical access hospital Qn4.65 m[IU]/L HighBon [facility] / Avera HealthThyroid Stim. Horm.on 41-72-5001Mjpiyqd Stim. Horm.4.65 uIU/mLHigh0.27-4.20[facility] Comment on above:Performed By: #### TSH ####[address] , [place] 4[address] Lab Director: Augusto Sidhu MD#### FT4 ####[address] [place], [place] 5[address] Lab Director: Hung Nguyen MDThyroxine, Freeon 26-19-4408Okvmmqarf, Free1.1 ng/dL Normal0.92-1.68[facility] Medical CenterComment on above:Performed By: #### TSH ####[address] , [place] [phone] Director: Augusto Sidhu MD#### FT4 ####[address] [place], [place] [address] Lab Director: Hung Nguyen [facility] W Auto Differential panel (Bld)on 03-97-3032Rpgbntdzk (Bld) [#/Vol]0.05 10*3/uLNINF [facility] Columbia ClinicBasophils/100 WBC (Bld)0.8 %[facility] HospitalDifferential cell count method Nom (Bld)AutoCleveland ClinicEosinophils (Bld) [#/Vol]0.14 10*3/uL NINFCleveland ClinicEosinophils/100 WBC (Bld)2.4 %[facility] Memorial HospitalErythrocyte distribution width (RBC) [Ratio]14.1 %11.5 - 15.0 %[facility] Memorial HospitalHematocrit (Bld) [Volume fraction]39.6 %39.0 - 51.0 %[facility] Memorial HospitalHemoglobin (Bld) [Mass/Vol]13.7 g/dL13.0 - 17.0 g/dLBrown Memorial HospitalImmature granulocytes (Bld) [#/Vol]0.03 10*3/uLNINFBrown Memorial HospitalImmature granulocytes/100 WBC (Bld)0.5 % [facility] HospitalInterpretation and review of laboratory resultsAbnormalCleveland ClinicLymphocytes (Bld) [#/Vol]0.74 10*3/uLLowBrown Memorial HospitalLymphocytes/100 WBC (Bld)12.4 %[facility] HospitalH (RBC) [Entitic mass]29.2 pg26.0 - 34.0 pg [facility] HospitalHC (RBC) [Mass/Vol]34.6 g/dL30.5 - 36.0 g/dLBrown Memorial Hospital MCV (RBC) [Entitic vol]84.4 fL80.0 - 100.0 fLCRegency Hospital Cleveland EastMonocytes (Bld) [#/Vol]0.39 10*3/uLNINFBrown Memorial HospitalMonocytes/100 WBC (Bld)6.6 %[facility] Memorial HospitalNeutrophils (Bld) [#/Vol]4.60 10*3/uLBrown Memorial HospitalNeutrophils/100 WBC (Bld)77.3 %[facility] Memorial HospitalNucleated RBC (Bld) [#/Vol]NINFCRegency Hospital Cleveland East Nucleated RBC/100 WBC (Bld) [Ratio]0.0 %/100 WBCBrown Memorial HospitalPlatelet mean volume (Bld) [Entitic vol]9.1 fL9.0 - 12.7 fLCRegency Hospital Cleveland EastPlatelets (Bld) [#/Vol]168 10*3/uLBrown Memorial HospitalRBC (Bld) [#/Vol]4.69 10*6/uL4.20 - 6.00 m/uL [facility] HospitalWBC (Bld) [#/Vol]5.95 10*3/uLGrant Hospital Basophils (Bld) [#/Vol]0.05 10*3/uLNormal<0.11COhioHealth O'Bleness HospitalComment on above:Order Comment: Specimen Type: BLOOD SPECIMENOrdering Facility: [facility] Address:[address] [place] [address] Performed By: #### 01709-6 ####[facility] LABCLIA [id number] [place], [place] [address]Flxfagdeq/100 WBC (Bld)0.8 % NormalBlanchard Valley Health System [facility] on above:Order Comment: Specimen Type: BLOOD SPECIMENOrdering Facility: [facility] Address:[address] [place], [place] [address]Performed By: #### 94346-7 ####[facility] LABCLIA [id number] [place] [address] Differential cell count method Nom (Bld)AutoNormalClevelCone Health MedCenter High Point Comment on above:Order Comment: Specimen Type: BLOOD SPECIMENOrdering Facility: [facility] Address:[address] [place] [address] Performed By: #### 57817-8 ####[facility] LABCLIA [id number] [place], [place] [address]Wdrsyxzzudb (Bld) [#/Vol]0.14 10*3/uLNormal<0.46[facility] on above:Order Comment: Specimen Type: BLOOD SPECIMENOrdering Facility: [facility] Address:[address] [place], [place] [address]Performed By: #### 65256-7 ####[facility] LABIA [id number] [place], [place] [address]Eitwuzzdwuc/100 WBC (Bld)2.4 %NormalTrumbull Memorial Hospitalment on above:Order Comment: Specimen Type: BLOOD SPECIMENOrdering Facility: [facility] Address:[address] [place], [place] [address]Performed By: #### 42685-6 ####[facility] LABIA [id number] [place], [place] [address]Skbqplimfje distribution width (RBC) [Ratio]14.1 %Oigddc16.5-15.0[facility] on above: Order Comment: Specimen Type: BLOOD SPECIMENOrdering Facility: [facility] Address:[address] [place], [place] [address]Performed By: #### 28138- 8 ####[facility] LABIA [id number] [place], [place] [address]Dgxooorjvw (Bld) [Volume fraction]39.6 %Mnonrk33.0-51.0 [facility] on above:Order Comment: Specimen Type: BLOOD SPECIMENOrdering Facility: [facility] Address:[address] [place], [place] [address]Performed By: #### 98605-2 ####[facility] LABIA [id number] [place], [place] [address]Hbbumkouth (Bld) [Mass/Vol]13.7 g/bYRortzb56.0-17.0[facility] on above: Order Comment: Specimen Type: BLOOD SPECIMENOrdering Facility: [facility] Address:[address] [place], [place] [address]Performed By: #### 43951- 8 ####[facility] LABIA [id number] [place], [place] [address]Hobquqcr granulocytes (Bld) [#/Vol]0.03 10*3/uLNormal <0.10[facility] on above:Order Comment: Specimen Type: BLOOD SPECIMENOrdering Facility: [facility] Address:[address] [place], [place] [address]Performed By: #### 04095-1 ####[facility] LABIA [id number] [place], [place] [address]Uubtrjtr granulocytes/100 WBC (Bld)0.5 %NormalBlanchard Valley Health System [facility] on above: Order Comment: Specimen Type: BLOOD SPECIMENOrdering Facility: [facility] Address:[address] [place], [place] [address]Performed By: #### 80801- 8 ####[facility] LABIA [id number] [place], [place] [address]Cfazzdimgvv (Bld) [#/Vol]0.74 10*3/uLLow1.00-4.00 [facility] on above:Order Comment: Specimen Type: BLOOD SPECIMENOrdering Facility: [facility] Address:[address] [place], [place] [address]Performed By: #### 36239-7 ####[facility] LABCLIA [id number] [place], [place] [address]Bawakhidfkf/100 WBC (Bld)12.4 %NormalBlanchard Valley Health System [facility] on above:Order Comment: Specimen Type: BLOOD SPECIMENOrdering Facility: [facility] Address:[address] [place], [place] [address]Performed By: #### 22151-0 ####[facility] LABCLIA [id number] [place], [place] [address]SXZ (RBC) [Entitic mass]29.2 hhYqhlfz59.0-34.0[facility] on above:Order Comment: Specimen Type: BLOOD SPECIMENOrdering Facility: [facility] Address:[address] [place], [place] [address]Performed By: #### 70488-7 ####[facility] LABCLIA [id number] [place], [place] [address]SYWC (RBC) [Mass/Vol]34.6 g/bGMeeugu23.5-36.0[facility] on above: Order Comment: Specimen Type: BLOOD SPECIMENOrdering Facility: [facility] Address:[address] [place], [place] [address]Performed By: #### 10583- 8 ####[facility] LABCLIA [id number] [place], [place] [address]ERJ (RBC) [Entitic vol]84.4 fMScantm69.0-100.0[facility] on above:Order Comment: Specimen Type: BLOOD SPECIMENOrdering Facility: [facility] Address:[address] [place], [place] [address]Performed By: #### 94097-4 ####[facility] LABIA [id number] [place], [place] [address]Clwgzzrtq (Bld) [#/Vol]0.39 10*3/uLNormal<0.87[facility] on above:Order Comment: Specimen Type: BLOOD SPECIMENOrdering Facility: [facility] Address:[address] [place], [place] [address]Performed By: #### 79806- 8 ####[facility] LABCLIA [id number] [place], [place] [address]Nivvpftau/100 WBC (Bld)6.6 %NormalBlanchard Valley Health System [facility] on above:Order Comment: Specimen Type: BLOOD SPECIMENOrdering Facility: [facility] Address:[address] [place], [place] [address]Performed By: #### 07856-8 ####[facility] LABCLIA [id number] [place], [place] [address]Mlkzwqqhnvh (Bld) [#/Vol]4.60 10*3/uLNormal1.45-7.50[facility] on above:Order Comment: Specimen Type: BLOOD SPECIMENOrdering Facility: [facility] Address:[address] [place], [place] [address]Performed By: #### 60604-4 ####[facility] LABCLIA [id number] [place], [place] [address]Mtjublzihru/100 WBC (Bld)77.3 %NormalBlanchard Valley Health System [facility] on above:Order Comment: Specimen Type: BLOOD SPECIMENOrdering Facility: [facility] Address:[address] [place], [place] [address]Performed By: #### 29641-8 ####[facility] LABIA [id number] [place], [place] [address]Mmnpkefrw RBC (Bld) [#/Vol] 10*3/uLNormal<0.01[facility] on above:Order Comment: Specimen Type: BLOOD SPECIMENOrdering Facility: [facility] Address:[address] [place], [place] [address]Performed By: #### 14288-5 ####[facility] LABCLIA [id number] [place], [place] [address]Cbzxwmwau RBC/100 WBC (Bld) [Ratio]0.0 /100 WBCNormal [facility] on above:Order Comment: Specimen Type: BLOOD SPECIMENOrdering Facility: [facility] Address:[address] [place], [place] [address]Performed By: #### 19349-6 ####[facility] LABCLIA [id number] [place], [place] [address]Pftoxcjc mean volume (Bld) [Entitic vol]9.1 fLNormal9.0-12.7CWadsworth-Rittman [facility] on above:Order Comment: Specimen Type: BLOOD SPECIMENOrdering Facility: [facility] Address:[address] [place] [address] Performed By: #### 84910-7 ####[facility] LABCLIA [id number] [place], [place] [address]Wslwerxwu (Bld) [#/Vol]168 10*3/zQUyomgz573-412MjyyezffwBlanchard Valley Health System [facility] on above:Order Comment: Specimen Type: BLOOD SPECIMENOrdering Facility: [facility] Address:[address] [place], [place] [address]Performed By: #### 71630-9 ####[facility] LABCLIA [id number] [place], [place] [address]NJK (Bld) [#/Vol]4.69 10*6/uLNormal4.20-6.00[facility] on above:Order Comment: Specimen Type: BLOOD SPECIMENOrdering Facility: [facility] Address:[address] [place], [place] [address]Performed By: #### 99529-7 ####[facility] LABCLIA [id number] [place], [place] [address]NUK (Bld) [#/Vol]5.95 10*3/uLNormal3.70-11.00[facility] HospitalComment on above: Order Comment: Specimen Type: BLOOD SPECIMENOrdering Facility: [facility] Address:[address] [place], [place] [address]Tlbsfmnyi By: #### 38984- 8 ####[facility] LABCLIA [id number] [place], [place] [address]RH ABD/PEL W IVCONon [id number] ABD/PEL W IVCON* * *Final Report* * * DATE OF EXAM: Oct 16 2024 9:08AM [facility] 0530 - CT ABD/PEL W [...] any questions regarding this interpretation, please call [phone]. If you are unable to reach us at the number above, please feel free to contact [facility] eRadiology at [phone]. [id number]_[id number] Health – [facility] Medical Center Abdomen and Pelvis W contrast [place] 13-00-7945PCFRKVGVLE: 1. Stable examination when compared to the [...] any questions regarding this interpretation, please call [phone]. If you are unable to reach us at the number above, please feel free to contact [facility] eRadiology at [phone].DIVISION OF RADIOLOGY* * *Final Report* * * DATE OF EXAM: Oct 16 2024 9:08AM [facility] 0530 - CT ABD/PEL W [...] Localizer images: No additional findings. DIVISION OF RADIOLOGYProvider, [facility] [place] - 10/16/2024 * * *Final Report* * * DATE OF EXAM: Oct 16 2024 9:08AM [facility] 0530 - CT ABD/PEL W [...] any questions regarding this interpretation, please call [phone]. If you are unable to reach us at the number above, please feel free to contact [facility] eRadiology at [phone]. [facility] CHEST W IVCONon [id number] CHEST W IVCON* * *Final Report* * * DATE OF EXAM: Oct 16 2024 9:08AM [facility] 0539 - CT CHEST W [...] any questions regarding this interpretation, please call [phone]. If you are unable to reach us at the number above, please feel free to contact [facility] eRadiology at [phone]. [id number]_[id number] Health West HospitalCT Chest W contrast [place] 93-40-7610JKWBUUIJCV: 1. Stable subcentimeter pulmonary nodules. Stable top [...] any questions regarding this interpretation, please call [phone]. If you are unable to reach us at the number above, please feel free to contact [facility] at [phone].DIVISION OF RADIOLOGY* * *Final Report* * * DATE OF EXAM: Oct 16 2024 9:08AM [facility] 0539 - CT CHEST W [...] Localizer images: No additional findings. DIVISION OF RADIOLOGYProvider, [facility] [place] - 10/16/2024 * * *Final Report* * * DATE OF EXAM: Oct 16 2024 9:08AM [facility] 0539 - CT CHEST W [...] any questions regarding this interpretation, please call [phone]. If you are unable to reach us at the number above, please feel free to contact [facility] eRadiology at [phone]. [facility] HospitalComprehensive metabolic 2000 panelOrdered By: Elizabeth Cody on 09-14-1122Adklbfs [Mass/Vol]4.3 g/dL3.9 - 4.9 g/dLWest Columbia ClinicALP [Catalytic activity/Vol]84 U/L38 - 113 U/LCleveland ClinicALT [Catalytic activity/Vol]19 U/L10 - 54 U/LCleveland ClinicAnion gap [Moles/Vol]10 mmol/L8 - 15 mmol/L [facility] HospitalAST [Catalytic activity/Vol]25 U/L14 - 40 U/LCleveland [facility] Bilirubin [Mass/Vol]0.9 mg/dL0.2 - 1.3 mg/dLBrown Memorial HospitalCalcium [Mass/Vol] 9.2 mg/dL8.5 - 10.2 mg/dLBrown Memorial HospitalChloride [Moles/Vol]105 mmol/L98 - 107 mmol/LCleveland ClinicCO2 [Moles/Vol]26 mmol/L22 - 30 mmol/LCleveland Clinic Creatinine [Mass/Vol]1.71 mg/dLHigh0.73 - 1.22 mg/dLBrown Memorial HospitalGFR/1.73 sq M.predicted among non-blacks MDRD (S/P/Bld) [Vol rate/Area]39 mL/min/{1.73_m2} Low- PINFCleveland ClinicComment on above:Estimated Glomerular Filtration Rate (eGFR) is calculated using the 2020 CKD-EPI creatinine equation. This equation utilizes serum creatinine, sex, and age as parameters. The creatinine assay has traceable calibration to isotope dilution-mass spectrometry. Refer to KDIGO guidelines for clinical interpretation. In patients with unstable renal function, e.g. those with acute kidney injury, the eGFRmay not accurately reflect actual GFR.Glucose [Mass/Vol]112 mg/fZIdxf47 - 99 mg/dLBrown Memorial Hospital Comment on above:The [place] Diabetes Association (ADA) provides guidance for cutoff values for fasting glucose andrandom glucose. The ADA defines fasting as no [...] Standards of Medical Care in Diabetes 2016, [place] Diabetes Association. Diabetes Care. 2016.39(Suppl 1). Interpretation and review of laboratory resultsAbnormalCleveland ClinicPotassium [Moles/Vol]4.2 mmol/L3.7 - 5.1 mmol/LCuniversity hospitals conneaut medical center ClinicProtein [Mass/Vol]6.4 g/dL 6.3 - 8.0 g/dLSt. Charles Hospitalodium [Moles/Vol]141 mmol/L136 - 144 mmol/L [facility] HospitalUrea nitrogen [Mass/Vol]32 mg/dLHigh9 - 24 mg/dLPaulding County HospitalComprehensive metabolic 2000 panelon 05-90-6580Fqajlxq [Mass/Vol]4.3 g/dLNormal3.9-4.9COhioHealth O'Bleness HospitalComment on above:Order Comment: Specimen Type: BLOOD SPECIMENOrdering Facility: [facility] Address:[address] [place], [place] [address]Performed By: #### 93039- 8 ####[facility] LABCLIA [id number] [place], [place] [address]JVJ [Catalytic activity/Vol]84 U/WQuqwhe57-595HmwaykyqaBlanchard Valley Health System [facility] on above:Order Comment: Specimen Type: BLOOD SPECIMENOrdering Facility: [facility] Address:[address] [place], [place] [address]Performed By: #### 47152-3 ####[facility] LABCLIA [id number] [place], [place] [address]OMK [Catalytic activity/Vol]19 U/CQaogsk98-42NpdphykxgBlanchard Valley Health System [facility] on above:Order Comment: Specimen Type: BLOOD SPECIMENOrdering Facility: [facility] Address:[address] [place], [place] [address]Performed By: #### 95148- 8 ####[facility] LABCLIA [id number] [facility] [place], [place] [address]Kexok gap [Moles/Vol]10 mmol/LNormal8-15[facility] on above:Order Comment: Specimen Type: BLOOD SPECIMENOrdering Facility: [facility] Address:[address] [place], [place] [address]Performed By: #### 20311-7 ####[facility] LABCLIA [id number] [place], [place] [address]AEH [Catalytic activity/Vol]25 U/RKhveka62-26EhbusljlqBlanchard Valley Health System [facility] on above:Order Comment: Specimen Type: BLOOD SPECIMENOrdering Facility: [facility] Address:[address] [place], [place] [address]Performed By: #### 34352-7 ####[facility] LABCLIA [id number] [place] [address] Bilirubin [Mass/Vol]0.9 mg/dLNormal0.2-1.3CWadsworth-Rittman Hospital on above:Order Comment: Specimen Type: BLOOD SPECIMENOrdering Facility: [facility] Address:[address] [place], [place] [address]Performed By: #### 30255-7 ####[facility] LABCLIA [id number] [place], [place] [address]Ygtsrfn [Mass/Vol]9.2 mg/dLNormal8.5-10.2CWadsworth-Rittman Hospital on above:Order Comment: Specimen Type: BLOOD SPECIMENOrdering Facility: [facility] Address:[address] [place], [place] [address]Performed By: #### 17308-6 ####[facility] LABCLIA [id number] [place], [place] [address]Nvgzgqlc [Moles/Vol]105 mmol/LTqsivn25-685UbfgwrvfiBlanchard Valley Health System [facility] on above: Order Comment: Specimen Type: BLOOD SPECIMENOrdering Facility: [facility] Address:[address] [place], [place] [address]Performed By: #### 63601- 8 ####[facility] LABCLIA [id number] [place], [place] [address]TW7 [Moles/Vol]26 mmol/FErfuux64-07XzuzvyldyBlanchard Valley Health System [facility] on above:Order Comment: Specimen Type: BLOOD SPECIMENOrdering Facility: [facility] Address:[address] [place], [place] [address]Performed By: #### 93477-8 ####[facility] LABCLIA [id number] [place], [place] [address]Kqsswiorfx [Mass/Vol]1.71 mg/dL High0.73-1.22[facility] on above:Order Comment: Specimen Type: BLOOD SPECIMENOrdering Facility: [facility] Address:[address] [place], [place] [address]Performed By: #### 31318-6 ####[facility] LABCLIA [id number] [place] [address] Creatinine and Glomerular filtration rate.predicted panel (S/P/Bld)39 mL/min/1.73m???Low>=60[facility] on above:Order Comment: Specimen Type: BLOOD SPECIMENOrdering Facility: [facility] Address:[address] [place], [place] [address]Result Comment: Estimated Glomerular Filtration Rate (eGFR) is calculated using the 2020 CKD-EPI creatinine equation. This equation utilizes serum creatinine, sex, and age as parameters. The creatinine assay has traceable calibration to isotope dilution-mass spectrometry. Refer to KDIGO guidelines for clinical interpretation. In patients with unstable renal function, e.g. those with acute kidney injury, the eGFR may not accurately reflect actual GFR.Performed By: #### 02430-9 ####[facility] LABCLIA [id number] [place] [address] Glucose [Mass/Vol]112 mg/dNDifx78-76WvcqzyxrsBlanchard Valley Health System [facility] on above: Order Comment: Specimen Type: BLOOD SPECIMENOrdering Facility: [facility] Address:[address] [place], [place] [address]Result Comment: The [place] Diabetes Association (ADA) provides guidance for cutoff values for fast ing glucose and random glucose. The ADA defines [...] Standards of Medical Care in Diabetes 2016, [place] Diabetes Association. Diabetes Care. 2016.39(Suppl 1).Performed By: #### 12052-9 ####[facility] LABCLIA [id number] [place], [place] [address]Afzhteakq [Moles/Vol]4.2 mmol/LNormal3.7-5.1CWadsworth-Rittman Hospital on above:Order Comment: Specimen Type: BLOOD SPECIMENOrdering Facility: [facility] Address:[address] [place], [place] [address]Performed By: #### 19808-5 ####[facility] LABCLIA [id number] [place], [place] [address]Oorlhfg [Mass/Vol]6.4 g/dLNormal6.3-8.0[facility] on above:Order Comment: Specimen Type: BLOOD SPECIMENOrdering Facility: [facility] Address:[address] [place], [place] [address]Performed By: #### 94354- 8 ####[facility] LABCLIA [id number] [place], [place] [address]Xxrgis [Moles/Vol]141 mmol/GLesuew221-686SobysjsiqBlanchard Valley Health System [facility] on above:Order Comment: Specimen Type: BLOOD SPECIMENOrdering Facility: [facility] Address:[address] [place] [address]Mpyxgdhaw By: #### 93424-5 ####[facility] LABCLIA [id number] [place], [place] [address]Pusu nitrogen [Mass/Vol]32 mg/dLHigh9-24[facility] on above:Order Comment: Specimen Type: BLOOD SPECIMENOrdering Facility: [facility] Address:[address] [place], [place] [address]Performed By: #### 48144-3 ####[facility] LABCLIA [id number] [place] [address] No Panel Informationon 32-57-1280Zsuqwgnch ClinicRadiology Study observation (narrative)[facility] HospitalOffice Visiton 60-31-7033Dvvyew-up [id number] Juan Jose Austin 1940 M Date Provider Department Center 09/16/2024 JESSICA ALEJANDRO Family History Problem Relation Age of Onset Heart failure Mother Lung cancer Father Family Status - Relation Status Age at Mother Father Level of Service:83188 OK OFFICE/OUTPATIENT ESTABLISHED LOW MDM 20 MIN Reason for Visit and Comments: Chest Pain [575540]NormalUnCincinnati Children's Hospital Medical CenterXR CHEST (2 VW)on 41-36-0928BR CHEST (2 VW)EXAMINATION: TWO XRAY VIEWS OF THE CHEST 09/10/2024 9:15 pm COMPARISON: 03/22/2024 HISTORY: Pacemaker problem. FINDINGS: Stable left chest pacemaker. Stable cardiomediastinal contours. Left basilar atelectasis/scarring. Right lung is clear. No pleural effusion or pneumothorax. IMPRESSION: Left basilar atelectasis/scarring. Stable pacemaker. Interpreted by: Krunal Damian MD Signed by: Krunal Damian MD 09/10/24 Final resultNormalMerUniversity of Connecticut Health Center/John Dempsey HospitalXR Chest 2 Viewson 47-35-1360Gyha basilar atelectasis/scarring. Stable pacemaker. PN RIS CONSOLIDATEDEXAMINATION: TWO XRAY VIEWS OF THE CHEST 09/10/2024 9:15 pm COMPARISON: 03/22/2024 HISTORY: Pacemaker problem. FINDINGS: Stable left chest pacemaker. Stable cardiomediastinal contours. Left basilar atelectasis/scarring. Right lung is clear. No pleural effusion or pneumothorax. [facility] Krunal Eugene MD - 09/10/2024 EXAMINATION: TWO XRAY VIEWS OF THE CHEST 09/10/2024 9:15 pm COMPARISON: 03/22/2024 HISTORY: Pacemaker problem. FINDINGS: Stable left chest pacemaker. Stable cardiomediastinal contours. Left basilar atelectasis/scarring. Right lung is clear. No pleural effusion or pneumothorax. IMPRESSION: Left basilar atelectasis/scarring. Stable pacemaker. [facility] [employer] HospitalRadiology Study observation (narrative)[facility] [employer] [facility] HospitalXR Chest 2 ViewsOrdered By: Krunal Damian on 86-88-5151Bex [facility] [employer]AB[employer] Work Phone: cbc W Auto Differential panel (Bld)on 08-21-2024 Basophils (Bld) [#/Vol]0.04 10*3/uLNormal<0.11COhioHealth O'Bleness HospitalComment on above:Order Comment: Specimen Type: BLOOD SPECIMEN Ordering Facility: [facility] Address: [address] [place], [place] [address]Performed By: #### 64934-0 #### [facility] CLIA [id number] [address] [place] [address]Irebslubf/100 WBC (Bld)0.7 %NormalMercy Health West Hospital Comment on above:Order Comment: Specimen Type: BLOOD SPECIMEN Ordering Facility: [facility] Address: [address] [place], [place] [address]Performed By: #### 17515-1 #### [facility] CLIA [id number] [address] [place] [address]Taactbxqzzcd cell count method Nom (Bld)AutoNormalClevelUC Medical Center on above:Order Comment: Specimen Type: BLOOD SPECIMEN Ordering Facility: [facility] Address: [address] [place], [place] [address]Performed By: #### 79733-6 #### [facility] CLIA [id number] [address] [place] [address]Orvewyxyybx (Bld) [#/Vol]0.19 10*3/uLNormal<0.46[facility] on above:Order Comment: Specimen Type: BLOOD SPECIMEN [facility]ing Facility: [facility] Address: [address] [place], [place] [address]Performed By: #### 13498-4 #### [facility] CLIA [id number] [address] [place] [address]56[address]Mryrcgahdsq/100 WBC (Bld)3.2 %NormalMercy Health West Hospital Comment on above:Order Comment: Specimen Type: BLOOD SPECIMEN Ordering Facility: [facility] Address: [address] [place], [place] [address]Performed By: #### 19615-7 #### [facility] CLIA [id number] [address] [place] [address] 426[address]Pdpdrepvizd distribution width (RBC) [Ratio]14.5 %Normal 11.5-15.0[facility] on above:Order Comment: Specimen Type: BLOOD SPECIMEN Ordering Facility: [facility] Address: [address] [place], [place] [address]Performed By: #### 53041-3 #### [facility] CLIA [id number] [address] [place] [address]Biuagdchoe (Bld) [Volume fraction]39.4 %Uvvhsh49.0-51.0 [facility] on above:Order Comment: Specimen Type: BLOOD SPECIMEN Ordering Facility: [facility] Address: [address] [place], [place] [address]Performed By: #### 03937-8 #### [facility] CLIA [id number] [address] [place] [address]37[address]Koidihwglz (Bld) [Mass/Vol]13.6 g/fRSppkrx16.0-17.0[facility] on above:Order Comment: Specimen Type: BLOOD SPECIMEN [facility]ing Facility: [facility] Address: [address] [place], [place] [address]Performed By: #### 79060-4 #### [facility] CLIA [id number] [address] [place] [address] 65[address]Jwsiuvrj granulocytes (Bld) [#/Vol]0.03 10*3/uLNormal<0.10 [facility] on above:Order Comment: Specimen Type: BLOOD SPECIMEN [facility]ing Facility: [facility] Address: [address] [place], [place] [address]Performed By: #### 49809-7 #### [facility] CLIA [id number] [address] [place] [address] 93434Xpoapmgo granulocytes/100 WBC (Bld)0.5 %NormalBlanchard Valley Health System [facility] on above:Order Comment: Specimen Type: BLOOD SPECIMEN [facility]ing Facility: [facility] Address: [address] [place], [place] [address]Performed By: #### 94863-6 #### [facility] CLIA [id number] [address] [place] [address]21[address]Ycjickffyaj (Bld) [#/Vol]0.91 10*3/uLLow1.00-4.00[facility] on above:Order Comment: Specimen Type: BLOOD SPECIMEN [facility]ing Facility: [facility] Address: [address] [place], [place] [address]Performed By: #### 95057-9 #### [facility] CLIA [id number] [address] [place] [address] 42[address]Ngbreaewmsc/100 WBC (Bld)15.1 %NormalBlanchard Valley Health System [facility] on above:Order Comment: Specimen Type: BLOOD SPECIMEN Ordering Facility: [facility] Address: [address] [place], [place] [address]Performed By: #### 58287-5 #### [facility] CLIA [id number] [address] [place] [address] 544[address]HRZ (RBC) [Entitic mass]28.8 ztFioivt72.0-34.0[facility] on above:Order Comment: Specimen Type: BLOOD SPECIMEN [facility]ing Facility: [facility] Address: [address] [place], [place] [address]Performed By: #### 01089-8 #### [facility] CLIA [id number] [address] [place] [address] 18291OKYR (RBC) [Mass/Vol]34.5 g/tREybpmg10.5-36.0[facility] on above:Order Comment: Specimen Type: BLOOD SPECIMEN [facility]ing Facility: [facility] Address: [address] [place], [place] [address]Performed By: #### 50505-8 #### [facility] CLIA [id number] [address] [place] [address] 697[address]GPH (RBC) [Entitic vol]83.5 rNHfwygy91.0-100.0[facility] on above:Order Comment: Specimen Type: BLOOD SPECIMEN [facility]ing Facility: [facility] Address: [address] [place], [place] [address]Performed By: #### 10082-0 #### [facility] CLIA [id number] [address] [place] [address] 82874Flouwnuso (Bld) [#/Vol]0.39 10*3/uLNormal<0.87[facility] on above:Order Comment: Specimen Type: BLOOD SPECIMEN Ordering Facility: [facility] Address: [address] [place], [place] [address]Performed By: #### 57901-6 #### [facility] CLIA [id number] [address] [place], [place] [address]Pjdfziwmf/100 WBC (Bld)6.5 %NormalMercy Health West Hospital Comment on above:Order Comment: Specimen Type: BLOOD SPECIMEN [facility]ing Facility: [facility] Address: [address] [place], [place] [address]Performed By: #### 31708-7 #### [facility] CLIA [id number] [address] [place], [place] [address]Lbrgsoixbpu (Bld) [#/Vol]4.45 10*3/uLNormal1.45-7.50[facility] on above:Order Comment: Specimen Type: BLOOD SPECIMEN [facility]ing Facility: [facility] Address: [address] [place], [place] [address]Performed By: #### 22896-1 #### [facility] CLIA [id number] [address] [place] [address] 38392Nptunnhprbk/100 WBC (Bld)74.0 %NormalBlanchard Valley Health System [facility] on above:Order Comment: Specimen Type: BLOOD SPECIMEN [facility]ing Facility: [facility] Address: [address] [place], [place] [address]Performed By: #### 03483-3 #### [facility] CLIA [id number] [address] [place] [address] 875[address]Rcoyuzrar RBC (Bld) [#/Vol]10*3/uLNormal<0.01[facility] on above:Order Comment: Specimen Type: BLOOD SPECIMEN [facility]ing Facility: [facility] Address: [address] [place], [place] [address]Performed By: #### 49198-6 #### [facility] CLIA [id number] [address] [place] [address] 12837Jsstekepi RBC/100 WBC (Bld) [Ratio]0.0 /100 WBCNormalCWadsworth-Rittman Hospital on above:Order Comment: Specimen Type: BLOOD SPECIMEN Ordering Facility: [facility] Address: [address] [place], [place] [address]Performed By: #### 30861-5 #### [facility] CLIA [id number] [address] [place], [place] [address]Vnfxtrff mean volume (Bld) [Entitic vol]9.1 fLNormal9.0-12.7 [facility] on above:Order Comment: Specimen Type: BLOOD SPECIMEN Ordering Facility: [facility] Address: [address] [place], [place] [address]Performed By: #### 31480-5 #### [facility] CLIA [id number] [address] [place], [place] [address]Wanikwifm (Bld) [#/Vol]166 10*3/hDMnffbo330-561YwxaunjhlBlanchard Valley Health System [facility] on above:Order Comment: Specimen Type: BLOOD SPECIMEN Ordering Facility: [facility] Address: [address] [place], [place] [address]Performed By: #### 03433-9 #### [facility] CLIA [id number] [address] [place] [address] 27776YUR (Bld) [#/Vol]4.72 10*6/uLNormal4.20-6.00[facility] on above:Order Comment: Specimen Type: BLOOD SPECIMEN Ordering Facility: [facility] Address: [address] [place], [place] [address]Performed By: #### 29650-9 #### [facility] CLIA [id number] [address] [place] [address]3961VWV (Bld) [#/Vol]6.01 10*3/uLNormal3.70-11.00[facility] on above:Order Comment: Specimen Type: BLOOD SPECIMEN Ordering Facility: [facility] Address: [address] [place], [place] [address]Performed By: #### 07896-9 #### [facility] CLIA [id number] [address] [place] [address] 13883KEFCDGxi [id number] (SP) Office ([place]) DUC AUSTINQamar Watson ([id number]) 1940 Date Time Provider Department 08/21/24 9:40 AM GRAEME VAZQUEZ During your visit today, we recorded the following information about you: Temperature Pulse Respiration Blood pressure 97.2 degrees 64/minute 16/minute 149/75 Weight Height 73.8 kg 1.62 m Jessica Cervantes 08/21/2024 9:[address] CAP scans in 8 weeks Labs same day RTC in 9 weeks Graeme Vazquez MD 08/21/2024 11:17 AM Signed NAME: Duc Austino CLINIC NO.: [id number] DATE OF SERVICE: August 21, 2024 [facility] Some elements in this clinic note that are critical to medical decision making have been carefully reviewed and included from a prior clinic note dated: May 18, 2024 (Eve) Referring Provider: Dr. Galen Bhatt Additional Clinicians involved in Juan Jose Austin's care: Dr. Sergio Sneed (PCP), Dr. Galen Bhatt, Dr. Jian [...] Order 07/10/2024 - EGD/Colonoscopy: with Dr. Jacob Bear at [facility] Diverticulitis A. Duodenum, biopsy: - Duodenal mucosa [...] to suggest obstruction. 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 Given the imaging appearance and short-term development, these may be infectious/inflammatory in etiology. Therefore, would advise a shor (more content not included)...NormalTrumbull Memorial Hospitalprehensive metabolic 2000 panelon 21-16-7914Klcgdyo [Mass/Vol]4.1 g/dLNormal3.9-4.9CWadsworth-Rittman Hospital on above:Order Comment: Specimen Type: BLOOD SPECIMENOrdering Facility: [facility] Address:[address] [place], [place] [address]Performed By: #### 03964-4 ####[facility]IA [id number] [place], [place] [address]JWE [Catalytic activity/Vol]84 U/IAkexvl39-342UywbksgszBlanchard Valley Health [facility] on above:Order Comment: Specimen Type: BLOOD SPECIMENOrdering Facility: [facility] Address:[address] [place], [place] [address]Performed By: #### 59387-9 ####[facility]CLIA [id number] [place], [place] [address]TJF [Catalytic activity/Vol]20 U/VWzglse10-99RahcbxseiBlanchard Valley Health System [facility] on above:Order Comment: Specimen Type: BLOOD SPECIMENOrdering Facility: [facility] Address:[address] [place], [place] [address]Performed By: #### 83701-7 ####[facility]CLIA [id number] [place], [place] [address]Daatm gap [Moles/Vol]9 mmol/LNormal8-15[facility] on above:Order Comment: Specimen Type: BLOOD SPECIMENOrdering Facility: [facility] Address:[address] [place], [place] [address]Performed By: #### 89131- 8 ####[facility]IA [id number] [facility] [place], [place] [address]BQJ [Catalytic activity/Vol]28 U/SSyupip02-49CklpndbftBlanchard Valley Health System [facility] on above:Order Comment: Specimen Type: BLOOD SPECIMENOrdering Facility: [facility] Address:[address] [place], [place] [address]Performed By: #### 91532-7 ####[facility] LABCLIA [id number] [place], [place] [address]Dtzpggaov [Mass/Vol]0.6 mg/dLNormal0.2-1.3CWadsworth-Rittman Hospital on above:Order Comment: Specimen Type: BLOOD SPECIMENOrdering Facility: [facility] Address:[address] [place], [place] [address]Performed By: #### 22323- 8 ####[facility]IA [id number] [facility] [place], [place] [address]Wqfswgj [Mass/Vol]8.9 mg/dLNormal8.5-10.2CWadsworth-Rittman Hospital on above:Order Comment: Specimen Type: BLOOD SPECIMENOrdering Facility: [facility] Address:[address] [place], [place] [address]Performed By: #### 81490-1 ####[facility]CLIA [id number] [place], [place] [address]Vvohznzk [Moles/Vol]106 mmol/L Osnxzm02-651KbvdeddssBlanchard Valley Health System [facility] on above:Order Comment: Specimen Type: BLOOD SPECIMENOrdering Facility: [facility] Address:[address] [place], [place] [address]Performed By: #### 48385-5 ####[facility]CLIA [id number] [place] [address] CO2 [Moles/Vol]26 mmol/XCloftp76-01PanntrvdwBlanchard Valley Health System [facility] on above: Order Comment: Specimen Type: BLOOD SPECIMENOrdering Facility: [facility] Address:[address] [place], [place] [address]Performed By: #### 68021- 8 ####[facility]CLIA [id number] [place], [place] [address]Pwsdwovbqg [Mass/Vol]1.72 mg/dLHigh0.73-1.22[facility] on above:Order Comment: Specimen Type: BLOOD SPECIMENOrdering Facility: [facility] Address:[address] [place], [place] [address]Performed By: #### 13933-7 ####[facility]IA [id number] [place], [place] [address]Wfaumkldic and Glomerular filtration rate.predicted panel (S/P/Bld)38 mL/min/1.73m???Low>=60 [facility] on above:Order Comment: Specimen Type: BLOOD SPECIMENOrdering Facility: [facility] Address:[address] [place], [place] [address]Result Comment: Estimated Glomerular Filtration Rate (eGFR) is calculated using the 2020 CKD-EPI creatinine equation. This equation utilizes serum creatinine, sex, and age as parameters. The creatinine assay has traceable calibration to isotope dilution-mass spectrometry. Refer to KDIGO guidelines for clinical interpretation. In patients with unstable renal function, e.g. those with acute kidney injury, the eGFR may not accurately reflect actual GFR.Performed By: #### 45385-2 ####[facility] LABCLIA [id number] [place], [place] [address]Gmdwhgf [Mass/Vol]102 mg/kCSyqk50-32HubcndwfaBlanchard Valley Health System [facility] on above:Order Comment: Specimen Type: BLOOD SPECIMENOrdering Facility: [facility] Address:[address] [place], [place] [address]Result Comment: The [place] Diabetes Association (ADA) provides guidance for cutoff values for fast ing glucose and random glucose. The ADA defines [...] Standards of Medical Care in Diabetes 2016, [place] Diabetes Association. Diabetes Care. 2016.39(Suppl 1).Performed By: #### 40269-0 ####[facility]CLIA [id number] [place], [place] [address]Pzhanakga [Moles/Vol]4.6 mmol/LNormal3.7-5.1CWadsworth-Rittman Hospital on above:Order Comment: Specimen Type: BLOOD SPECIMENOrdering Facility: [facility] Address:[address] [place], [place] [address]Performed By: #### 67224-7 ####[facility]CLIA [id number] [place], [place] [address]Qvjnmqr [Mass/Vol]6.1 g/dLLow6.3-8.0[facility] on above:Order Comment: Specimen Type: BLOOD SPECIMENOrdering Facility: [facility] Address:[address] [place], [place] [address]Performed By: #### 30803- 8 ####[facility]CLIA [id number] [place], [place] [address]Sqrtlm [Moles/Vol]141 mmol/SZxqpyw495-342QysriosooBlanchard Valley Health System [facility] on above:Order Comment: Specimen Type: BLOOD SPECIMENOrdering Facility: [facility] Address:[address] [place], [place] [address]Performed By: #### 08686-0 ####[facility]CLIA [id number] [place], [place] [address]Wvll nitrogen [Mass/Vol]34 mg/dLHigh9-24[facility] on above:Order Comment: Specimen Type: BLOOD SPECIMENOrdering Facility: [facility] Address:[address] [place], [place] [address]Performed By: #### 50561-7 ####[facility]CLIA [id number] [place] [address] Cortis SerPl-mCncon 12-02-8376Lewfrtaq [Mass/Vol]6.0 ug/dLNormal4.8-19.5 [facility] on above:Order Comment: Specimen Type: BLOOD SPECIMENOrdering Facility: [facility] Address:[address] [place], [place] [address]Result Comment: Provided reference range is from 6-10 AM sample collection time. Cortisol Reference Range: 6-10 AM = 4.8-19.5 ug/dL, 4-8 PM = 2.5-11.9 ug/dL Performed By: #### 3016-3, 2143-6 ####[facility] LABCLIA [id number] [facility] [id number] [facility] HbA1c (Bld)on 68-48-2563Dcoxlei glucose Estimated from glycated hemoglobin (Bld) [Mass/Vol]97 mg/dLNormalCWadsworth-Rittman Hospital on above:Order Comment: Specimen Type: BLOOD SPECIMENOrdering Facility: [facility] Address:[address] [place], [place] [address]Result Comment: eAG: (Estimated average glucose) is a calculated value from HgbA1c and is representa tive of the average blood glucose level in the last 2-3 month period.Performed By: #### 13541-4 ####[facility]CLIA [id number] [place] [address] [place] JKIWCYRGmH9o (Bld) [Mass fraction]5.0 %Normal4.3-5.6CWadsworth-Ritt[facility] on above:Order Comment: Specimen Type: BLOOD SPECIMENOrdering Facility: [facility] Address:[address] [place], [place] [address]Result Comment: [place] Diabetes Association guidelines indicate that patients with HgbA1c in the range 5.7-6.4% are at increased risk for development of diabetes, and intervention by lifestyle modification may be beneficial. HgbA1c greater or equal to 6.5% is considered diagnostic of diabetes.Performed By: #### 19161-1 ####[facility] [id number] [place] [address] [place] [facility]ITALTS SerPl-aCncon 91-29-3393GQJ Qn2.260 m[IU]/L Normal0.270-4.200[facility] on above:Order Comment: Specimen Type: BLOOD SPECIMENOrdering Facility: [facility] Address:[address] [place], [place] [address]Performed By: #### 3016-3, 2143-6 ####[facility] [id number] [place] [address] [place] AMERICACT ABD/PEL W IVCONon 64-72-6970PT ABD/PEL W IVCON* * *Final Report* * * DATE OF EXAM: Jun 29 2024 9:00AM [facility] 0530 - CT ABD/PEL W [...] performed concurrently and will be dictated separately. Powerhouse Tender (topogram) images: No additional findings. IMPRESSION: Stable [...] any questions regarding this interpretation, please call [phone]. If you are unable to reach us at the number above, please feel free to contact [facility] eRadiology at [phone]. [id number] Health – Soin Medical Center Abdomen and Pelvis W contrast [place] 84-52-7005ZZMVYGNASF: Stable CT examination the abdomen and pelvis [...] any questions regarding this interpretation, please call [phone]. If you are unable to reach us at the number above, please feel free to contact [facility]iology at [phone].DIVISION OF RADIOLOGY* * *Final Report* * * DATE OF EXAM: Jun 29 2024 9:00AM [facility] 0530 - CT ABD/PEL W [...] performed concurrently and will be dictated separately. Powerhouse Tender (topogram) images: No additional findings. DIVISION OF RADIOLOGYProvider, [facility] [place] - 06/29/2024 * * *Final Report* * * DATE OF EXAM: Jun 29 2024 9:00AM [facility] 0530 - CT ABD/PEL W [...] performed concurrently and will be dictated separately. Powerhouse Tender (topogram) images: No additional findings. IMPRESSION IMPRESSION: [...] any questions regarding this interpretation, please call [phone]. If you are unable to reach us at the number above, please feel free to contact [facility]Radiology at [phone]. [facility] CHEST W IVCONon [id number] CHEST W IVCON* * *Final Report* * * DATE OF EXAM: Jun 29 2024 9:00AM [facility] 0539 - CT CHEST W [...] performed concurrently and will be dictated separately. Powerhouse Tender (topogram) images: No additional findings. IMPRESSION: 1. [...] any questions regarding this interpretation, please call [phone]. If you are unable to reach us at the number above, please feel free to contact [facility]Radiology at [phone]. [id number] Health – Soin Medical Center Chest W contrast [place] 94-16-2674VPDXDVBNCX: 1. Mild soft tissue prominence at the [...] any questions regarding this interpretation, please call [phone]. If you are unable to reach us at the number above, please feel free to contact [facility] at [phone].DIVISION OF RADIOLOGY* * *Final Report* * * DATE OF EXAM: Jun 29 2024 9:00AM [facility] 0539 - CT CHEST W [...] performed concurrently and will be dictated separately. Powerhouse Tender (topogram) images: No additional findings. DIVISION OF RADIOLOGYProvider, [facility] [place] - 06/29/2024 * * *Final Report* * * DATE OF EXAM: Jun 29 2024 9:00AM [facility] 0539 - CT CHEST W [...] performed concurrently and will be dictated separately. Powerhouse Tender (topogram) images: No additional findings. IMPRESSION IMPRESSION: [...] any questions regarding this interpretation, please call [phone]. If you are unable to reach us at the number above, please feel free to contact [facility] at [phone]. [facility] Panel InformationOrdered By: Ccf Provider on 06-29-2024 [facility] Panel Informationon [id number] Study observation (narrative)[facility] HospitalCNOVSPon 39-86-0500HOXYKUIwcta (SP) Office ([place]) JUAN JOSE [place] ([id number]) 1940 M Date Time Provider Department 05/18/24 1:00 PM GRAEME VAZQUEZ During your visit today, we recorded the following information about you: Temperature Pulse Respiration Blood pressure 97.1 degrees 66/minute 16/minute 121/63 Weight Height 68.7 kg 1.62 m Graeme Vazquez MD 05/19/2024 11:18 AM Signed NAME: Juan Jose Austin NO.: [id number] DATE OF SERVICE: May 18, 2024 (Eve) Some elements in this clinic note that are critical to medical decision making have been carefully reviewed and included from a prior clinic note dated: December 20, 2023 (Wero) Referring Provider: Dr. Galen Bhatt Additional Clinicians involved in Juan Jose Austin's care: Dr. Sergio Sneed (PCP), Dr. Galen Bhatt, Dr. Jian [...] to suggest obstruction. 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 This is (more content not included)...NormalGe[facility] metabolic 2000 panelon 63-38-9906Udwwcpj [Mass/Vol]4.1 g/dLNormal3.9-4.9CWadsworth-[facility] on above:Order Comment: Specimen Type: BLOOD SPECIMENOrdering Facility: [facility] Address:[address] [place], [place] [address]Performed By: #### 22505-1 ####[facility] LABCLIA [id number] [facility] [place], [place] [address]PCN [Catalytic activity/Vol]109 U/USzmsls60-990LpsnmknfeBlanchard Valley Health System [facility] on above:Order Comment: Specimen Type: BLOOD SPECIMENOrdering Facility: [facility] Address:[address] [place], [place] [address]Performed By: #### 32485-9 ####[facility] LABCLIA [id number] [place], [place] [address]GIH [Catalytic activity/Vol]34 U/BJeliyu57-71FqsekfkbmBlanchard Valley Health [facility] on above:Order Comment: Specimen Type: BLOOD SPECIMENOrdering Facility: [facility] Address:[address] [place], [place] [address]Performed By: #### 57411- 8 ####[facility] LABCLIA [id number] [place], [place] [address]Vxggr gap [Moles/Vol]9 mmol/LNormal8-15[facility] on above:Order Comment: Specimen Type: BLOOD SPECIMENOrdering Facility: [facility] Address:[address] [place], [place] [address]Performed By: #### 49681-8 ####[facility] LABIA [id number] [place], [place] [address]MRP [Catalytic activity/Vol]33 U/DShhvxu23-76BbqzorobsBlanchard Valley Health System [facility] on above:Order Comment: Specimen Type: BLOOD SPECIMENOrdering Facility: [facility] Address:[address] [place], [place] [address]Performed By: #### 21805-4 ####[facility] LABCLIA [id number] [facility] [place] [address] Bilirubin [Mass/Vol]0.7 mg/dLNormal0.2-1.3CWadsworth-Ritt[facility] on above:Order Comment: Specimen Type: BLOOD SPECIMENOrdering Facility: [facility] Address:[address] [place], [place] [address]Performed By: #### 70065-7 ####[facility] LABCLIA [id number] [place], [place] [address]Cqjmsvc [Mass/Vol]9.4 mg/dLNormal8.5-10.2CWadsworth-R[facility] on above:Order Comment: Specimen Type: BLOOD SPECIMENOrdering Facility: [facility] Address:[address] [place], [place] [address]Performed By: #### 61880-9 ####[facility] LABCLIA [id number] [facility] [place], [place] [address]Fjdsiwlx [Moles/Vol]110 mmol/YDlug26-261MrbgznkljBlanchard Valley Health [facility] on above:Order Comment: Specimen Type: BLOOD SPECIMENOrdering Facility: [facility] Address:[address] [place], [place] [address]Performed By: #### 38554- 8 ####[facility] LABCLIA [id number] [facility] MERON [facility]ABRA[facility] [place] [place], [place] [address]HH7 [Moles/Vol]27 mmol/JJbdmxm08-83GtrtfvtsvBlanchard Valley Health System [facility] on above:Order Comment: Specimen Type: BLOOD SPECIMENOrdering Facility: [facility] Address:[address] [place], [place] [address]Performed By: #### 65575-1 ####[facility] LABCLIA [id number] [place] CARISSAABRAZO WEST CAMPUSFABIENST[place], [place] [address]Rxcuoupxkd [Mass/Vol]1.89 mg/dL High0.73-1.22[facility] ClevelandComment on above:Order Comment: Specimen Type: BLOOD SPECIMENOrdering Facility: [facility] Address:[address] [place], [place] [address]Performed By: #### 84857-3 ####[facility] LABCLIA [id number] [place] [address] Creatinine and Glomerular filtration rate.predicted panel (S/P/Bld)34 mL/min/1.73m???Low>=60[facility] on above:Order Comment: Specimen Type: BLOOD SPECIMENOrdering Facility: [facility] Address:[address] [place], [place] [address]Result Comment: Estimated Glomerular Filtration Rate (eGFR) is calculated using the 2020 CKD-EPI creatinine equation. This equation utilizes serum creatinine, sex, and age as parameters. The creatinine assay has traceable calibration to isotope dilution-mass spectrometry. Refer to KDIGO guidelines for clinical interpretation. In patients with unstable renal function, e.g. those with acute kidney injury, the eGFR may not accurately reflect actual GFR.Performed By: #### 34730-2 ####[facility] LABCLIA [id number] [place] [address] Glucose [Mass/Vol]111 mg/jWJjsq76-69SthgvmhjqBlanchard Valley Health System [facility] on above: Order Comment: Specimen Type: BLOOD SPECIMENOrdering Facility: [facility] Address:[address] [place] [address]Ktdhjw Comment: The [place] Diabetes Association (ADA) provides guidance for cutoff values for fast ing glucose and random glucose. The ADA defines [...] Standards of Medical Care in Diabetes 2016, [place] Diabetes Association. Diabetes Care. 2016.39(Suppl 1).Performed By: #### 90859-9 ####[facility] LABCLIA [id number] [place], [place] [address]Lstudbxkc [Moles/Vol]4.5 mmol/LNormal3.7-5.1CWadsworth-Rittman Hospital on above:Order Comment: Specimen Type: BLOOD SPECIMENOrdering Facility: [facility] Address:[address] [place], [place] [address]Performed By: #### 04720-9 ####[facility] LABCLIA [id number] [place], [place] [address]Wunqcfj [Mass/Vol]6.3 g/dLNormal6.3-8.0[facility] on above:Order Comment: Specimen Type: BLOOD SPECIMENOrdering Facility: [facility] Address:[address] [place], [place] [address]Performed By: #### 54294- 8 ####[facility] LABCLIA [id number] [place], [place] [address]Acfonn [Moles/Vol]146 mmol/UHpcv140-553MlzfqajagBlanchard Valley Health System [facility] on above:Order Comment: Specimen Type: BLOOD SPECIMENOrdering Facility: [facility] Address:[address] [place], [place] [address]Performed By: #### 14549-9 ####[facility] LABIA [id number] [place], [place] [address]Jvxn nitrogen [Mass/Vol]43 mg/dLHigh9-24[facility] on above:Order Comment: Specimen Type: BLOOD SPECIMENOrdering Facility: [facility] Address:[address] [place], [place] [address]Performed By: #### 16713-6 ####[facility] LABIA [id number] [place] [address] TSH SerPl-aCncon [id number] Qn2.600 m[IU]/LNormal0.270-4.200[facility] on above:Order Comment: Specimen Type: BLOOD SPECIMENOrdering Facility: [facility] Address:[address] [place] [id number] By: #### 3016-3 ####[facility] LABCLIA [id number] TOMMY [id number], [place] [address] [place] Basic Metabolic Panelon 31-82-3169Jrczr gap [Moles/Vol]7 mmol/LLow9 - 17 mmol/L [facility] Yooli [facility]ICAL CENTERCalcium [Mass/Vol]8.2 mg/dLLow8.6 - 10.4 mg/dLB[facility] BracketrChloride [Moles/Vol]107 mmol/L98 - 107 mmol/LB[facility] BracketrCO2 [Moles/Vol]27 mmol/L20 - 31 mmol/[facility] Bracketr Creatinine [Mass/Vol]1.6 mg/dLHigh0.7 - 1.2 mg/dLB[facility] BracketrEst, Glom Filt Utjf48Mqa- PINFBON [facility] on above: These results are not intended [...] therapy that affects renal tubular secretion. Glucose [Mass/Vol]117 mg/wEAbvy71 - 99 mg/dLB[facility] Bracketr Interpretation and review of laboratory resultsAbnormalBON [facility] Bracketr Potassium [Moles/Vol]3.7 mmol/L3.7 - 5.3 mmol/LBON [facility] BracketrSodium [Moles/Vol]141 mmol/L135 - 144 mmol/LBON [facility] HE[facility] CENTERFixMeStickUrea nitrogen [Mass/Vol]26 mg/dLHigh8 - 23 mg/dLB[facility] BracketrUrea nitrogen/Creatinine [Mass ratio]16 mg/mg9 - 20[facility]1DayLater [facility]ICAL CENTERBON SECDigital River [facility] MEDICAL CENTERBasic Metabolic Profon 95-69-4536Ehxbg gap [Moles/Vol]7 mmol/LLow9-17[facility] Medical CenterComment on above:Performed By: #### TIP, TROPI, BMP #### [address] [place] [address] Franchise Specialist: DRAKE Olivas/CRE Yfvmg08Nyqxgb7-08Erqbv [facility] Comment on above:Performed By: #### TIP TROPI, BMP #### [address] [place] [address] Franchise Specialist: SHEREE Olivasalcium [Mass/Vol]8.2 mg/dLLow8.6-10.4[facility] Medical CenterComment on above:Performed By: #### TIP TROPI, BMP #### [address] [place] [address] Franchise Specialist: SHEREE Olivashloride [Moles/Vol]107 mmol/JDurlvt72-532Cungg [facility] HospitalComment on above:Performed By: #### TIP TROPI, BMP #### [address] [place] [address] Franchise Specialist: SHEREE OlivasO2 [Moles/Vol]27 mmol/ZKrpaep67-58HdfynSycamore Medical CenterComment on above:Performed By: #### TIP TROPI, BMP #### [address] [place] [address] Franchise Specialist: SHEREE Olivasreatinine [Mass/Vol]1.6 mg/dLHigh0.7-1.2Mer[facility] Volcano HospitalComment on above:Performed By: #### TIP TROPI, BMP #### [address] [place], [place] [id number] Franchise Specialist: Augusto Sidhu MDGFR/1.73 sq M.predicted among non-blacks MDRD (S/P/Bld) [Vol rate/Area]42 mL/min/{1.73_m2}Low>60Mercy Volcano HospitalComment on above:Result Comment: These results are not intended for [...] or following therapy that affects renal tubular secretion.Performed By: #### YOHAN WHELAN, BMP #### [address] [place], [place] [id number] Franchise Specialist: Augusto Sidhu MDGlucose [Mass/Vol]117 mg/rYDfsr83-10Sftbv [facility] HospitalComment on above:Performed By: #### YOHAN WHELAN BMP #### [address] [place], [place] [id number] Franchise Specialist: JEREMY Olivasotassium [Moles/Vol]3.7 mmol/LNormal3.7-5.3Mercy Volcano HospitalComment on above:Performed By: #### YOHAN WHELAN BMP #### [address] [place], [place] [id number] Franchise Specialist: ROCIO Olivasodium [Moles/Vol]141 mmol/QJlurvi279-797DjbldSycamore Medical CenterComment on above:Performed By: #### YOHAN WHELAN, BMP #### [address] [place], [place] [id number] Franchise Specialist: Augusto Sidhu MDUrea nitrogen [Mass/Vol]26 mg/dLHigh8-23MerUniversity of Connecticut Health Center/John Dempsey HospitalComment on above:Performed By: #### YOHAN WHELAN, BMP #### [address] [place], [place] [id number] Franchise Specialist: Augusto Sidhu [facility] with Auto Differentialon 12-39-7152Hzhmwznqr (Bld) [#/Vol]0.07 10*3/uLBON [facility]ITALY HEALTHBasophils/100 WBC (Bld)1 %0 - 2 %[facility] HEALTHEosinophils (Bld) [#/Vol]0.45 10*3/uLHighBON [facility] HEALTHEosinophils/100 WBC (Bld)5 %High1 - 4 %[facility] HEALTH Erythrocyte distribution width (RBC) [Ratio]14.2 %11.8 - 14.4 %[facility]ITALY HEALTHHematocrit (Bld) [Volume fraction]36.5 %Low40.7 - 50.3 %[facility] HEALTHHemoglobin (Bld) [Mass/Vol]11.9 g/dLLow13.0 - 17.0 g/dLBON SECOURS HOLZER HOSPITALImmature granulocytes (Bld) [#/Vol]0.03 10*3/uLBON [facility] Immature granulocytes/100 WBC (Bld)0 %0B[facility] HEALTHInterpretation and review of laboratory resultsAbnormalBON [facility]OS[facility]ITALY HEALTHLymphocytes/100 WBC (Bld)10 %Low24 - 43 %[facility]ITALY HEALTHLymphocytes/100 WBC (Bld)0.82 % LowBON SECOURS SOUTHVIEW MEDICAL CENTERH (RBC) [Entitic mass]27.7 pg25.2 - 33.5 pgBON SECOURS SOUTHVIEW MEDICAL CENTERHC (RBC) [Mass/Vol]32.6 g/dL28.4 - 34.8 g/dLBON SECOURS SOUTHVIEW MEDICAL CENTERV (RBC) [Entitic vol]85.1 fL82.6 - 102.9 fLBON [facility] HOSPITALY HEALTHMonocytes/100 WBC (Bld)8 %3 - 12 %[facility] HEALTHMonocytes/100 WBC (Bld)0.63 %[facility]ITALY HEALTHNeutrophils/100 WBC (Bld)76 %High36 - 65 %[facility]ITALY HEALTHNucleated RBC/100 WBC (Bld) [Ratio]0.0 %0.0 per 100 WBC [facility]ITALY HEALTHPlatelet mean volume (Bld) [Entitic vol]8.5 fL8.1 - 13.5 fLBON SECOURS MERCY HEALTHPlatelets (Bld) [#/Vol]290 10*3/uLBON TOLEDO HOSPITALRBC (Bld) [#/Vol]4.29 10*6/uL4.21 - 5.77 m/[facility] Segmented neutrophils/100 WBC (Bld)6.45 %BON TOLEDO HOSPITALWBC other (Bld) [#/Vol]8.5BON [facility] HEALTHCBC with Diffon 73-44-4013Gzn. Basophil0.07 k/uLNormal0.00-0.20[facility] HospitalComment on above:Performed By: #### TIP TROPI, BMP #### [address] [place] [id number] Franchise Specialist: Trevor Olivas.Imm.Granulocyte0.03 k/uLNormal0.00-0.30[facility] HospitalComment on above:Performed By: #### TIP TROPI, BMP #### [address] [place], [place] [address] Franchise Specialist: Trevor Olivas.Neutrophil (Seg)6.45 k/uLNormal1.50-8.10[facility] HospitalComment on above:Performed By: #### TIP TROPI, BMP #### [address] [place], [facility]83 Franchise Specialist: Augusto Sidhu MDBasophils/100 WBC (Bld)1 %Normal0-2[facility] HospitalComment on above:Performed By: #### TIP TROPI, BMP #### [address] [place], [facility]83 Franchise Specialist: Augusto Sidhu MDEosinophils (Bld) [#/Vol]0.45 10*3/uLHigh0.00-0.44 [facility] HospitalComment on above:Performed By: #### TIP, TROPI, BMP #### [address] [place], [place] [address] Franchise Specialist: Augusto Sidhu MDEosinophils/100 WBC (Bld)5 %High1-4Sycamore Medical CenterComment on above:Performed By: #### CDP, TROPI, BMP #### [address] [place] [address] Franchise Specialist: Augusto Sidhu MDErythrocyte distribution width (RBC) [Ratio]14.2 % Pajlnv04.8-14.4[facility] HospitalComment on above:Performed By: #### TIP TROPI, BMP #### [address] [place] [address] Franchise Specialist: Augusto Sidhu MDHematocrit (Bld) [Volume fraction]36.5 %Low 40.7-50.3Mercy Volcano HospitalComment on above:Performed By: #### TIP TROPI, BMP #### [address] [place], [place] [address] Franchise Specialist: Augusto Sidhu MDHemoglobin (Bld) [Mass/Vol]11.9 g/dLLow13.0-17.0 [facility] Medical CenterComment on above:Performed By: #### TIP TROPI, BMP #### [address] [place], [place] [address] Franchise Specialist: Augusto Sidhu MDImmature granulocytes/100 WBC (Bld)0 %Nsctdk5Cvpvj [facility]in HospitalComment on above:Performed By: #### TIP, TROPI, BMP #### [address] [place] [id number] Franchise Specialist: Augusto Sidhu MDLymphocytes (Bld) [#/Vol]0.82 10*3/uLLow1.10-3.70 [facility] CenterComment on above:Performed By: #### TIP, TROPI, BMP #### [address] [place] [address] Franchise Specialist: Gay Olivasmphocytes/100 WBC (Bld)10 %Ush53-53Rhcgl [facility] HospitalComment on above:Performed By: #### TIP, TROPI, BMP #### [address] [place], [place] [address] Franchise Specialist: DANDRE Olivas (RBC) [Entitic mass]27.7 ekApyycz90.2-33.5 [facility] HospitalComment on above:Performed By: #### PEGGY WHELANI, BMP #### [address] [place], [place] [address] Franchise Specialist: DANDRE OlivasC (RBC) [Mass/Vol]32.6 g/mZRbfvao12.4-34.8[facility] HospitalComment on above:Performed By: #### TIP TROPI, BMP #### [address] [place] [address] Franchise Specialist: LORNA OlivasCV (RBC) [Entitic vol]85.1 iYLaftzb53.6-102.9 [facility] HospitalComment on above:Performed By: #### TIP TROPI, BMP #### [address] [place] [address] Franchise Specialist: LORNA Olivasonocytes (Bld) [#/Vol]0.63 10*3/uLNormal0.10-1.20 [facility] HospitalComment on above:Performed By: #### TIP, TROPI, BMP #### [address] [place], [place] [address] Franchise Specialist: LORNA Olivasonocytes/100 WBC (Bld)8 %Normal3-12[facility] HospitalComment on above:Performed By: #### TIP, TROPI, BMP #### [facility] [address] [place] [address] Franchise Specialist: Lilly Olivas (Seg)76 %Zuhz25-51PtlknSycamore Medical Center Comment on above:Performed By: #### CDP, TROPI, BMP #### [address] [place] [address] Franchise Specialist: NAYELI Olivas Automated0.0 per 100 WBCNormal0.0Sy[facility] Medical CenterComment on above:Performed By: #### TIP, TROPI, BMP #### [address] [place] [address] Franchise Specialist: Micah Olivas mean volume (Bld) [Entitic vol]8.5 fL Normal8.1-13.5[facility] Medical CenterComment on above:Performed By: #### TIP, TROPI, BMP #### [address] [place] [address] Franchise Specialist: Vasquez Olivas (Bld) [#/Vol]290 10*3/aRMtdhse505-819 [facility] Medical CenterComment on above:Performed By: #### TIP, TROPI, BMP #### [address] [place] [address] Franchise Specialist: ABEL Olivas (Bld) [#/Vol]4.29 10*6/uLNormal4.21-5.77[facility] Medical CenterComment on above:Performed By: #### TIP, TROPI, BMP #### [address] [place], [place] [address] ([address] Franchise Specialist: PANDA Olivas (Bld) [#/Vol]8.5 10*3/uLNormal3.5-11.3MCherrington HospitalComment on above:Performed By: #### CDP, TROPI, [facility] #### [facility] [address] [place] [address] Franchise Specialist: JON Olivas CHEST PULMONARY EMBOLISM W CONTRASTon [id number] CHEST PULMONARY EMBOLISM W CONTRASTEXAMINATION: CTA OF THE CHEST 03/22/2024 5:57 pm [...] Signed by: Venus Dumont MD 03/22/24 Final resultNormalMercy Rockville General Hospital1. No evidence of pulmonary embolism or acute pulmonary abnormality. 2. Moderate gaseous and ingested material distension of the stomach. MHPN RIS CONSOLIDATEDEXAMINATION: CTA OF THE CHEST 03/22/2024 5:57 pm [...] No acute bone or soft tissue abnormality. [facility] Venus Holcomb MD - 03/22/2024 EXAMINATION: CTA OF THE [...] and ingested material distension of the stomach. [facility] [employer]Radiology Study observation (narrative)[facility] HOSPITALDigital River [facility] MEDICAL CENTERCT CHEST PULMONARY EMBOLISM W CONTRASTOrdered By: Venus Dumont on 20-55-5557QGK [employer] Work Phone: [phone]-[employer] Teston [id number]-Dimer Test1.08 ug/mL FEU High0.00-0.59[facility] on above:Result Comment: When combined with a low clinical [...] be more prevalent in patients with distal DVT.Performed By: #### VITALY ####[address] [place] [address] lab Director: Augusto Sidhu MDD-Dimer, Quantitativeon 59-32-5337Ewkfqd D-dimer FEU (PPP) [Mass/Vol]1.08[facility] on above: When combined with a low [...] distal DVT. Interpretation and review of laboratory resultsAbInova Loudoun HospitalComplex Media XR Chest AP single viewon 13-31-7714Ld acute airspace disease identified. [facility] CONSOLIDATEDEXAMINATION: ONE XRAY VIEW OF THE CHEST 03/22/2024 [...] Surgical clips project over the mid abdomen. [facility] Benji Phelan MD - 03/22/2024 EXAMINATION: ONE XRAY VIEW [...] abdomen. IMPRESSION: No acute airspace disease identified. [facility] HOSPITALutoopia ExamifyRadiology Study observation (narrative)[facility] [employer] ExamifyKing'S Daughters Hospital And Health ServicesSpreadshirt XR Chest AP single viewOrdered By: Benji Castro on [id number] SECuto[employer] Work Phone: Troponinon 24-53-4325Khahiuvhhteetl and review of laboratory resultsAbnormalSTONESPRINGS HOSPITAL CENTERTroponin I.cardiac High sensitivity method [Mass/Vol]69 ng/LCritically high0 - 22 ng/LBON [facility]EDO HOSPITALComment on above:High Sensitivity Troponin values cannot be compared with other Troponin methodologies.ST[facility]ESPRINGS HOSPITAL CENTERTroponin, High Sens69 ng/L Critically high0-22[facility] Medical CenterComcorewell health greenville hospital on above:Result Comment: High Sensitivity Troponin values cannot be compared with other Troponin methodologies.Performed By: #### TROPI ####[facility] [place] [address] Lab Director: Augusto Sidhu MD Interpretation and review of laboratory resultsAbnoUVA Health University Hospital Troponin I.cardiac High sensitivity method [Mass/Vol]73 ng/LCritically high0 - 22 ng/LBON [facility]O HOSPITALComcorewell health greenville hospital on above:High Sensitivity Troponin values cannot be compared with other Troponin methodologies.[facility] Troponin, High Sens73 ng/LCritically high0-22[facility] Medical CenterComcorewell health greenville hospital on above:Result Comment: High Sensitivity Troponin values cannot be compared with other Troponin methodologies.Performed By: #### CDP, TROPI, BMP #### [address] [place] [address] Franchise Specialist: MALORIE Olivas CHEST PORTABLEon 05-21-0313IS CHEST PORTABLE EXAMINATION: ONE XRAY VIEW OF [...] Signed by: Benji Castro MD 03/22/24 Final resultNoAvita Health System [facility] Abdomen and Pelvis W contrast [place] 20-21-3311LMZMILPZPJ: 1. Stable appearance of geographic area of [...] any questions regarding this interpretation, please call [phone]. If you are unable to reach us at the number above, please feel free to contact [facility] Hospitaliology at [phone].DIVISION OF RADIOLOGY* * *Final Report* * * DATE OF EXAM: Jan 24 2024 1:25PM [facility] 0530 - CT ABD/PEL W [...] Localizer images: No additional findings. DIVISION OF RADIOLOGYProvider, [facility] [place] - 01/27/2024 * * *Final Report* * * DATE OF EXAM: Jan 24 2024 1:25PM [facility] 0530 - CT ABD/PEL W [...] any questions regarding this interpretation, please call [phone]. If you are unable to reach us at the number above, please feel free to contact [facility] eRadiology at [phone]. [facility] Abdomen and Pelvis W contrast IVOrdered By: Ccf Provider on [id number] [facility] CenterCT Chest W contrast [place] 33-51-5203Paxzysrkmqphew and review of laboratory resultsAbnormalCRegency Hospital Cleveland EastRadiology ResultACTIONABLE AbnormalBrown Memorial HospitalComment on above:This report contains an incidental or actionable finding. [...] be communicated with the ordering provider via [employer] staff message or phone message by Imaging Support Services within 2 business days of report finalization. --END OF FINDING-- Algorithms for management of incidental imaging findings can be found on the [facility] Intranet Sharepoint site at: [email or web address]/Managing%20Incidental%20Findi ngs%20at%20Imaging/Forms/AllItems.aspx Transcribe Date/Time: Jan 27 2024 8:36A Dictated by: LIO OSORIO MD This examination was interpreted and the report reviewed and electronically signed by: LIO OSORIO MD on Jan 27 2024 8:50AM EST Thank you for allowing us to participate in the care of your patient. Should there be any questions regarding this interpretation, please call [phone]. If you are unable to reach us at the number above, please feel free to contact [facility] Hospitaliology at [phone].DIVISION OF RADIOLOGY* * *Final Report* * * DATE OF EXAM: Jan 24 2024 1:25PM [facility] 0539 - CT CHEST W [...] Localizer images: No additional findings. DIVISION OF RADIOLOGYProvider, [facility] [place] - 01/27/2024 * * *Final Report* * * DATE OF EXAM: Jan 24 2024 1:25PM [facility] 0539 - CT CHEST W [...] be communicated with the ordering provider via [employer] staff message or phone message by Imaging Support Services within 2 business days of report finalization. --END OF FINDING-- Algorithms for management of incidental imaging findings can be found on the [facility] Intranet Sharepoint site at: [email or web address]/[email or web address]%20Incidental%20Findi ngs%20at%20Imaging/Forms/AllItems.aspx Transcribe Date/Time: Jan 27 2024 8:36A Dictated by: LIO OSORIO MD This examination was interpreted and the report reviewed and electronically signed by: LIO OSORIO MD on Jan 27 2024 8:50AM EST Thank you for allowing us to participate in the care of your patient. Should there be any questions regarding this interpretation, please call [phone]. If you are unable to reach us at the number above, please feel free to contact [facility] eRadiology at [phone]. [facility] W Auto Differential panel (Bld)on 01-24-2024 Basophils (Bld) [#/Vol]0.03 10*3/uLNIMount Carmel Health System ClinicBasophils/100 WBC (Bld) 0.4 %[facility] HospitalDifferential cell count method Nom (Bld)AutoCleveland ClinicEosinophils (Bld) [#/Vol]0.12 10*3/uLNINFBrown Memorial HospitalEosinophils/100 WBC (Bld)1.6 %[facility] Memorial HospitalErythrocyte distribution width (RBC) [Ratio]17.1 % High11.5 - 15.0 %[facility] Memorial HospitalHematocrit (Bld) [Volume fraction]38.0 %Low39.0 - 51.0 %[facility] Memorial HospitalHemoglobin (Bld) [Mass/Vol]12.4 g/dLLow13.0 - 17.0 g/dL [facility] HospitalImmature granulocytes (Bld) [#/Vol]0.03 10*3/uLNINFBrown Memorial HospitalImmature granulocytes/100 WBC (Bld)0.4 %[facility] HospitalInterpretation and review of laboratory resultsAbnormalCleveland ClinicLymphocytes (Bld) [#/Vol] 0.47 10*3/uLLowBrown Memorial HospitalLymphocytes/100 WBC (Bld)6.5 %[facility] HospitalH (RBC) [Entitic mass]27.9 pg26.0 - 34.0 pgClevelMadelia Community HospitalHC (RBC) [Mass/Vol] 32.6 g/dL30.5 - 36.0 g/dLBrown Memorial HospitalMCV (RBC) [Entitic vol]85.6 fL80.0 - 100.0 fLCleveland ClinicMonocytes (Bld) [#/Vol]0.50 10*3/uLNINFBrown Memorial Hospital Monocytes/100 WBC (Bld)6.9 %[facility] Memorial HospitalNeutrophils (Bld) [#/Vol]6.13 10*3/uLBrown Memorial HospitalNeutrophils/100 WBC (Bld)84.2 %[facility] Memorial HospitalNucleated RBC (Bld) [#/Vol]NINFClevelCleveland Clinic Children's Hospital for RehabilitationNucleated RBC/100 WBC (Bld) [Ratio]0.0 % /100 WBCBrown Memorial HospitalPlatelet mean volume (Bld) [Entitic vol]9.0 fL9.0 - 12.7 fLClevelcannon memorial hospital ClinicPlatelets (Bld) [#/Vol]206 10*3/uLBrown Memorial HospitalRBC (Bld) [#/Vol]4.44 10*6/uL4.20 - 6.00 m/The [facility]vue HospitalWBC (Bld) [#/Vol]7.28 10*3/uL Grant HospitalComprehensive metabolic 2000 panelOrdered By: Skylar Orona on 25-84-8583Yhddzcz [Mass/Vol]3.1 g/dLLow3.9 - 4.9 g/dLWest Columbia ClinicALP [Catalytic activity/Vol]59 U/L38 - 113 U/LCleveland ClinicALT [Catalytic activity/Vol]20 U/L10 - 54 U/LCleveland ClinicAnion gap [Moles/Vol]7 mmol/LLow9 - 18 mmol/LCleveland ClinicAST [Catalytic activity/Vol]23 U/L14 - 40 U/LCleveland ClinicBilirubin [Mass/Vol]0.4 mg/dL0.2 - 1.3 mg/dLCleveland Clinic Calcium [Mass/Vol]8.4 mg/dLLow8.5 - 10.2 mg/dLWest Columbia ClinicChloride [Moles/Vol]108 mmol/LHigh97 - 105 mmol/LCleveland ClinicCO2 [Moles/Vol]30 mmol/L 22 - 30 mmol/LCleveland ClinicCreatinine [Mass/Vol]1.55 mg/dLHigh0.73 - 1.22 mg/dLWest Columbia ClinicGFR/1.73 sq M.predicted among non-blacks MDRD (S/P/Bld) [Vol rate/Area]44 mL/min/{1.73_m2}Low- PINFCleveland ClinicComment on above: Estimated Glomerular Filtration Rate (eGFR) is calculated using the 2020 CKD-EPI creatinine equation. This equation utilizes serum creatinine, sex, and age as parameters. The creatinine assay has traceable calibration to isotope dilution- mass spectrometry. Refer to KDIGO guidelines for clinical interpretation. In patients with unstable renal function, e.g. those with acute kidney injury, the eGFRmay not accurately reflect actual GFR.Glucose [Mass/Vol]107 mg/jRTuxh45 - 99 mg/dLBrown Memorial HospitalComment on above:The [place] Diabetes Association (ADA) provides guidance for cutoff values for fasting glucose andrandom glucose. The ADA defines fasting as no caloric intake for at least 8 hours. Fasting plasma gl ucose results between 100 to 125 mg/dL indicate [...] Standards of Medical Care in Diabetes 2016, [place] [employer] Association. Diabetes Care. 2016.39(Suppl 1). Interpretation and review of laboratory resultsAbnormalCleveland ClinicPotassium [Moles/Vol]3.7 mmol/L3.7 - 5.1 mmol/LCleveland ClinicProtein [Mass/Vol]4.7 g/dL Low6.3 - 8.0 g/dLWest Columbia ClinicSodium [Moles/Vol]145 mmol/DEcjb102 - 144 mmol/LCleveland ClinicUrea nitrogen [Mass/Vol]28 mg/dLHigh9 - 24 mg/dLGrant HospitalNo Panel Informationon [id number] Study observation (narrative)[facility] Abdomen and Pelvis W contrast [place] [id number]: 1. More conspicuous indeterminate 2.7 x 1.0 [...] any questions regarding this interpretation, please call [phone]. If you are unable to reach us at the number above, please feel free to contact [facility] eRadiology at [phone].DIVISION OF RADIOLOGY* * *Final Report* * * DATE OF EXAM: Aug 23 2023 10:44AM [facility] 0530 - CT ABD/PEL W [...] chest CT performed will be reported separately. Powerhouse Tender (topogram) images: No additional findings. DIVISION OF RADIOLOGYProvider, [facility] [place] - 08/24/2023 * * *Final Report* * * DATE OF EXAM: Aug 23 2023 10:44AM [facility] 0530 - CT ABD/PEL W [...] chest CT performed will be reported separately. Powerhouse Tender (topogram) images: No additional findings. IMPRESSION IMPRESSION: [...] any questions regarding this interpretation, please call [phone]. If you are unable to reach us at the number above, please feel free to contact [facility] eRadiology at [phone]. [facility] Abdomen and Pelvis W contrast IVOrdered By: Ccf Provider on [id number] ClinicCT Chest W contrast [place] [id number]: 1. No evidence of intrathoracic metastases. 2. [...] any questions regarding this interpretation, please call [phone]. If you are unable to reach us at the number above, please feel free to contact [facility]Radiology at [phone].DIVISION OF RADIOLOGY* * *Final Report* * * DATE OF EXAM: Aug 23 2023 10:44AM [facility] 0539 - CT CHEST W [...] CT scan report for the abdomen findings. Powerhouse Tender (topogram) images: No additional findings. DIVISION OF RADIOLOGYProvider, [facility] [place] - 08/24/2023 * * *Final Report* * * DATE OF EXAM: Aug 23 2023 10:44AM [facility] 0539 - CT CHEST W [...] CT scan report for the abdomen findings. Powerhouse Tender (topogram) images: No additional findings. IMPRESSION IMPRESSION: [...] any questions regarding this interpretation, please call [phone]. If you are unable to reach us at the number above, please feel free to contact [facility]iology at [phone]. [facility] Panel Informationon [id number] Study observation (narrative)[facility] Abdomen and Pelvis W contrast [place] [id number]: 1. New indeterminate 5 mm enhancing focus [...] any questions regarding this interpretation, please call [phone]. If you are unable to reach us at the number above, please feel free to contact [facility]Radiology at [phone].DIVISION OF RADIOLOGY* * *Final Report* * * DATE OF EXAM: May 31 2023 10:16AM [facility] 0530 - CT ABD/PEL W [...] chest CT performed will be reported separately. Powerhouse Tender (topogram) images: No additional findings. DIVISION OF RADIOLOGYProvider, [facility] [place] - 06/01/2023 * * *Final Report* * * DATE OF EXAM: May 31 2023 10:16AM [facility] 0530 - CT ABD/PEL W [...] chest CT performed will be reported separately. Powerhouse Tender (topogram) images: No additional findings. IMPRESSION IMPRESSION: 1. New indeterminate 5 mm enhancing focus in the dome of the liver. Differential diagnosis includes perfusion phenomenon and other infectious/inflammatory etiologies. Subtle neoplasm cannot be excluded. Consider interval follow-up. 2. Additional punctate splenic hypodensities, too small to characterize, may also be evaluated at interval follow-up. Transcribe Date/Time: Jun 01 2023 1:23P Dictated by: CHRISTIANO MEIDNA MD This examination was interpreted and the report reviewed and electronically signed by: CHRISTIANO MEDINA MD on Jun 01 2023 1:33PM EST Thank you for allowing us to participate in the care of your patient. Should there be any questions regarding this interpretation, please call [phone]. If you are unable to reach us at the number above, please feel free to contact [facility]Radiology at [phone]. [facility] Abdomen and Pelvis W contrast IVOrdered By: [facility] Provider on [id number] ClinicCT Chest W contrast [place] [id number]: 1. No evidence of intrathoracic metastases. 2. [...] any questions regarding this interpretation, please call [phone]. If you are unable to reach us at the number above, please feel free to contact [facility]Radiology at [phone].DIVISION OF RADIOLOGY* * *Final Report* * * DATE OF EXAM: May 31 2023 10:16AM [facility] 0539 - CT CHEST W [...] CT scan report for the abdomen findings. Powerhouse Tender (topogram) images: No additional findings. DIVISION OF RADIOLOGYProvider, [facility] [place] - 06/01/2023 * * *Final Report* * * DATE OF EXAM: May 31 2023 10:16AM [facility] 0539 - CT CHEST W [...] CT scan report for the abdomen findings. Powerhouse Tender (topogram) images: No additional findings. IMPRESSION IMPRESSION: [...] any questions regarding this interpretation, please call [phone]. If you are unable to reach us at the number above, please feel free to contact [facility]iology at [phone]. [facility]No Panel Informationon [id number] Study observation (narrative)[facility] Consultation [id number]#1.00CD:[address] [place], [place] [address]BNPon 92-65-3231Bkqiffdwqbl peptide B (Bld) [Mass/Vol] 1490.0 pg/mLNormal<=1,800.0The [facility] HospitalComment on above:Performed By: #### CK, HSTROPN, CMP, BNP #### [facility] [address] [place] [address] Dr. Tan Villagomez AUTO DIFFon [id number] #0.1 103/ulNormal0.0-0.1The [facility] HospitalComment on above:Performed By: #### CK, HSTROPN, CMP, BNP #### [facility] [address] [address] [address] Yilan ChangBasophils/100 WBC (Bld)0.9 %Normal0.2-2.0The [facility] Comment on above:Performed By: #### CK, HSTROPN, CMP, BNP #### [facility] [address] [place] [address] Dr. Tan Ram #0.1 103/ulNormal0.0-0.7The [facility] HospitalComment on above: Performed By: #### CK, HSTROPN, CMP, BNP #### [facility] [address] [place] [address] Dr. Tan Santososinophils/100 WBC (Bld)1.6 %Normal0.9-7.0The [facility] Comment on above:Performed By: #### CK, HSTROPN, CMP, BNP #### [facility] [address] [place] [address] Dr. Tan Santosrythrocyte distribution width (RBC) [Ratio]14.7 %Biqich37.0-15.0 The [facility] HospitalComment on above:Performed By: #### CK, HSTROPN, CMP, BNP #### [facility] [address] [place] [address] Dr. Tan OliverosHematocrit (Bld) [Volume fraction]38.9 %Critically low42.0-54.0 The [facility] HospitalComment on above:Performed By: #### CK, HSTROPN, CMP, BNP #### [facility] [address] [place] [address] Dr. Tan OliverosHemoglobin (Bld) [Mass/Vol]12.8 g/dLCritically low14.0-18.0The [facility] HospitalComment on above:Performed By: #### CK, HSTROPN, CMP, BNP #### [facility] [address] [place] [address] Dr. Tan OliverosIG #0.02 10e3/ulNormal0.00-0.03The [facility] HospitalComment on above:Performed By: #### CK, HSTROPN, CMP, BNP #### [facility] [address] [address] [address] Tan Panchal %0.3 %Normal0.0-0.5The [facility] HospitalComment on above: Performed By: #### CK, HSTROPN, CMP, BNP #### [facility] [address] [address] [address] Tan Armstrong #0.7 103/ulCritically low1.2-3.8The [facility] Comment on above:Performed By: #### CK, HSTROPN, CMP, BNP #### [facility] [address] [place] [address] Dr. Tan Singletonhocytes/100 WBC (Bld)10.4 %Critically low20.5-60.0The [facility] HospitalComment on above:Performed By: #### CK, HSTROPN, CMP, BNP #### [facility] [address] [place] [address] Dr. Tan BrizuelaUAL DIFF REQNONormalThe [facility] HospitalComment on above: Performed By: #### CK, HSTROPN, CMP, BNP #### [facility] [address] [place] [address] Dr. Tan Duarte (RBC) [Entitic mass]27.2 prFbnrer99.9-34.0The [facility] HospitalComment on above:Performed By: #### CK, HSTROPN, CMP, BNP #### [facility] [address] [place] [address] Dr. Tan Duarte (RBC) [Mass/Vol]32.9 g/rLRxnpud35.9-35.2The [facility] HospitalComment on above:Performed By: #### CK, HSTROPN, CMP, BNP #### [facility] [address] [place] [address] Dr. Tan Duarte (RBC) [Entitic vol]82.8 hUEtmmfu74.0-94.0The [facility] HospitalComment on above:Performed By: #### CK, HSTROPN, CMP, BNP #### [facility] [address] [place] [address] Dr. Tan Torres #0.4 103/ulNormal0.3-0.8The [facility] HospitalComment on above:Performed By: #### CK, HSTROPN, CMP, BNP #### [facility] [address] [place] [address] Dr. Tan Riveraocytes/100 WBC (Bld)5.8 %Normal1.7-12.0The [facility] Comment on above:Performed By: #### CK, HSTROPN, CMP, BNP #### [facility] [address] [place] [address] Dr. Tan Goode #5.2 103/ulNormal1.4-6.5The [facility] HospitalComment on above:Performed By: #### CK, HSTROPN, CMP, BNP #### [facility] [address] [place] [address] Dr. Tan Sullivanutrophils/100 WBC (Bld)81.0 %Critically high43.0-75.0The [facility] HospitalComment on above:Performed By: #### CK, HSTROPN, CMP, BNP #### [facility] [address] [place] [address] Dr. Tan Murray mean volume (Bld) [Entitic vol]9.9 fLNormal9.5-13.5The [facility] HospitalComment on above:Performed By: #### CK, HSTROPN, CMP, BNP #### [facility] [address] [place] [address] Dr. Tan OliverosPLT198 103/lwOzwvsi380-181Aqy [facility] HospitalComment on above: Performed By: #### CK, HSTROPN, CMP, BNP #### [facility] [address] [place] [address] Dr. Tan OliverosRBC4.70 106/ulNormal4.70-6.10The [facility] HospitalComment on above:Performed By: #### CK, HSTROPN, CMP, BNP #### [facility] [address] [address] [address] Tan OliverosWBC6.4 103/ulNormal4.0-11.0The [facility] HospitalComment on above: Performed By: #### CK, HSTROPN, CMP, BNP #### [facility] [address] [address] [address] Tan Bryant 38-89-3822QN [Catalytic activity/Vol]152 U/BQxysia93-596Jmf [facility] HospitalComment on above:Performed By: #### CK, HSTROPN, CMP, BNP #### [facility] [address] [address] [address] Tan Tomlin 14(COMP METB)on 17-20-3564Befoeqz [Mass/Vol]3.5 g/dLNormal 3.4-5.0The [facility] HospitalComment on above:Performed By: #### CK, HSTROPN, CMP, BNP #### [facility] [address] [place] [address] Dr. Tan OliverosAlbumin/Globulin [Mass ratio]1.2 {ratio}NormalThe [facility] Lutheran Hospitalment on above:Performed By: #### CK, HSTROPN, CMP, BNP #### [facility] [address] [place] [address] Dr. Tan Patel [Catalytic activity/Vol]69 U/WSlfiah24-073Zbj [facility] HospitalComment on above:Performed By: #### CK, HSTROPN, CMP, BNP #### [facility] [address] [place] [address] Dr. Tan Kay [Catalytic activity/Vol]21 U/LIlenik03-53Mhi [facility] HospitalComment on above:Performed By: #### CK, HSTROPN, CMP, BNP #### [facility] [address] [place] [address] Dr. Tan Montesinos gap [Moles/Vol]14.6 mmol/LNormalThe [facility] Comment on above:Performed By: #### CK, HSTROPN, CMP, BNP #### [facility] [address] [address] [address] Tan OliverosAST [Catalytic activity/Vol]21 U/QQawuoz51-18Hma [facility] HospitalComment on above:Performed By: #### CK, HSTROPN, CMP, BNP #### [facility] [address] [place] [address] Dr. Tan OliverosBilirubin [Mass/Vol]0.5 mg/dLNormal0.2-1.0The [facility] Comment on above:Performed By: #### CK, HSTROPN, CMP, BNP #### [facility] [address] [place] [address] Dr. Tan OliverosCalcium [Mass/Vol]8.7 mg/dLNormal8.5-10.1[facility] Comment on above:Performed By: #### CK, HSTROPN, CMP, BNP #### [facility] [address] [place] [address] Dr. Tan OliverosChloride [Moles/Vol]107 mmol/VPhkcns96-191Ryz [facility] Comment on above:Performed By: #### CK, HSTROPN, CMP, BNP #### [facility] [address] [place] [address] Dr. Tan OliverosCO2 [Moles/Vol]23.1 mmol/SWgkbbg61.0-32.0[facility] Comment on above:Performed By: #### CK, HSTROPN, CMP, BNP #### [facility] [address] [place] [address] Dr. Tan OliverosCreatinine [Mass/Vol]2.31 mg/dLCritically high0.70-1.30The [facility] HospitalComment on above:Performed By: #### CK, HSTROPN, CMP, BNP #### [facility] [address] [place] [address] Dr. Maddox ChangEGFR-AF HTKXZVVP95 mL/min/1.42o2Iibssswmzj low>=60The [facility] HospitalComment on above:Performed By: #### CK, HSTROPN, CMP, BNP #### [facility] [address] [address] [address] Tan SantosGFR-NON AF WPHNUBWO33 mL/min/1.87g6Zlxgelmkpb low>=60The [facility] HospitalComment on above:Performed By: #### CK, HSTROPN, CMP, BNP #### [facility] [address] [address] [address] Tan OliverosGlobulin (S) [Mass/Vol]2.8 g/dLNormalThe [facility] HospitalComment on above:Performed By: #### CK, HSTROPN, CMP, BNP #### [facility] [address] [address] [address] Tan OliverosGlucose [Mass/Vol]123 mg/dLCritically xzms22-038Beo [facility] HospitalComment on above:Performed By: #### CK, HSTROPN, CMP, BNP #### [facility] [address] [place] [address] Dr. Tan OliverosPotassium [Moles/Vol]4.7 mmol/LNormal3.5-5.1The [facility] Comment on above:Performed By: #### CK, HSTROPN, CMP, BNP #### [facility] [address] [address] [address] Tan OliverosProtein [Mass/Vol]6.3 g/dLCritically low6.4-8.2The [facility] HospitalComment on above:Performed By: #### CK, HSTROPN, CMP, BNP #### [facility] [address] [place] [address] Dr. Tan OliverosSodium [Moles/Vol]140 mmol/ZPithbc283-808Ouf [facility] Comment on above:Performed By: #### CK, HSTROPN, CMP, BNP #### [facility] [address] [place] [address] Dr. Tan OliverosUrea nitrogen [Mass/Vol]39.0 mg/dLCritically high7.0-18.0The [facility] HospitalComment on above:Performed By: #### CK, HSTROPN, CMP, BNP #### [facility] [address] [place], [place] [address] Dr. Tan OliverosUrea nitrogen/Creatinine [Mass ratio]16.9 mg/mgNoPremier Health Miami [facility] Hospital NorthComcorewell health [facility] on above:Performed By: #### CK, HSTROPN, CMP, BNP #### [facility] [address] [place], [place] [address] Dr. Tan JosephOPODIMA, HIGH SENSITIVITYon 06-72-2989HTFIID28.5 pg/mLNormal 4.0-76.1The [facility] HospitalComcorewell health [facility] hospital on above:Result Comment: CUT-OFF POINTS HAVE BEEN ESTABLISHED BASED ON THE FOURTH UNIVERSAL DEFINITIONS OF MYOCARDIAL INFARCTION. THE UPPER REFERENCE LIMIT (URL) OF TROPONIN, DEFINED THE 99TH PERCENTILE OF cTnI DISTRIBUTION IN A REFERENCE POPULATION, HAS BEEN CONFIRMED THE DECISION THRESHOLD FOR DE DIAGNOSIS.Performed By: #### CK, HSTROPN, CMP, BNP #### [facility] [address] [address] [address] Tan OliverosXR CHEST 2 Von 53-45-7050CF CHEST 2 VEXAM: XR CHEST 2 V HISTORY: SHORTNESS OF BREATH COMPARISON: 12/08/2022 TECHNIQUE: Chest X-ray, 2 views FINDINGS: Support devices: None. Lungs/pleura: No consolidation, effusion, or pneumothorax. Heart and mediastinum: Normal contours. Bones: No acute abnormality identified. Impression: No radiographic evidence of acute cardiopulmonary process. Electronically authenticated by: MIKE MARTÍNEZ Date: 2023-03-10 11:51[facility] HospitalConsultation Noteon 95-19-7415Pmdpdpbmkvcy Note [id number]#1.00CD:127NoalGood Samaritan HospitalCT Chest WO contraston 68-82-7122GDGHYLXKLB: 1. Since 11/15/2022, resolution of bibasilar pleural [...] any questions regarding this interpretation, please call [phone]. If you are unable to reach us at the number above, please feel free to contact [facility] at [phone].DIVISION OF RADIOLOGY* * *Final Report* * * DATE OF EXAM: Jan 23 2023 3:11PM [facility] 0541 - CT CHEST WO [...] a few nonspecific noncalcified pulmonary nodules, with senior patient account representative examples detailed as follows on series [...] the right adrenal. Status post left nephrectomy. Powerhouse Tender (topogram) images: No additional findings. DIVISION OF RADIOLOGYProvider, [facility] [place] - 01/23/2023 * * *Final Report* * * DATE OF EXAM: Jan 23 2023 3:11PM [facility] 0541 - CT CHEST WO [...] a few nonspecific noncalcified pulmonary nodules, with senior patient account representative examples detailed as follows on series [...] the right adrenal. Status post left nephrectomy. Powerhouse Tender (topogram) images: No additional findings. IMPRESSION IMPRESSION: [...] any questions regarding this interpretation, please call [phone]. If you are unable to reach us at the number above, please feel free to contact [facility] at [phone]. [facility] HospitalRad[facility] Study observation (narrative)[facility] Chest WO contrastOrdered By: [facility] Provider on 33-05-2521Rzvrssypr ClinicECHOCARDIO M/2D COMPLETEon [id number] M/2D COMPLETEPatient: JUAN JOSE AUSTINFloyd Exam Date: 01/11/2023 : 1940 Gender:M Ordering : DR SERGIO SNEED . Admission #: [id number] Family : DR KEVEN CASTANEDA M.D. Order #: [id number] CLICK HERE TO VIEW EXAM ECHOCARDIOGRAM REPORT [...] by: Brandie Michel M.D. on 01/11/2023 at 15:32[facility] HospitalConsent for Procedure/Surgeryon [id number] for Procedure/Surgery [id number]#1.00CD:127[facility] HospitalUrology Office/Clinic Noteon 28-30-8817Bofjzpv Office/Clinic NoteHPI Staff Cystoscopy with right stent removal. History [...] viewed in entirety and found to be withouttumors or stones. Mild inflammation was seen surrounding the orifice with the stent seen protrudingfrom it. The stent was then grasped and [...] [facility] [address], [place] [address]- Additional Instructions: PRN Patient Education I, Marisabel [...] Nephroureterectomy (07/03/2018), Biopsy of bladder (05/15/2018), Pyeloscopy (0 05/10/2016), Renal biopsy (01/10/2012), Instillation of BCG into [...] mg= 1 tab(s), O (more content not included)...Normal [facility] HospitalComment on above:Result Comment: Electronically Signed By: Jian RODRIGUEZ MD\.br\Date and Time Signed: 12/18/22 12:13 EST\.br\Electronically Co-Signed By: Marisabel Reeves.br\Date and Time Co- Signed: 12/18/22 12:12 ESTCBC AUTO DIFFon [id number] #0.1 103/ulNormal 0.0-0.1The [facility] HospitalComment on above:Performed By: #### CK, HSTROPN, CMP, BNP #### [facility] [address] [address] [address] Tan OliverosBasophils/100 WBC (Bld)0.9 %Normal0.2-2.0The [facility] Comment on above:Performed By: #### CK, HSTROPN, CMP, BNP #### [facility] [address] [place] [address] Dr. Tan SantosO #0.2 103/ulNormal0.0-0.7The [facility] HospitalComment on above: Performed By: #### CK, HSTROPN, CMP, BNP #### [facility] [address] [place] [address] Dr. Tan Santososinophils/100 WBC (Bld)3.7 %Normal0.9-7.0The [facility] Comment on above:Performed By: #### CK, HSTROPN, CMP, BNP #### [facility] [address] [place] [address] Dr. Tan Santosrythrocyte distribution width (RBC) [Ratio]17.1 %Critically high 11.0-15.0The [facility] HospitalComment on above:Performed By: #### CK, HSTROPN, CMP, BNP #### [facility] [address] [place] [address] Dr. Tan OliverosHematocrit (Bld) [Volume fraction]38.5 %Critically low42.0-54.0 The [facility] HospitalComment on above:Performed By: #### CK, HSTROPN, CMP, BNP #### [facility] [address] [place] [address] Dr. Tan OliverosHemoglobin (Bld) [Mass/Vol]12.7 g/dLCritically low14.0-18.0The [facility] HospitalComment on above:Performed By: #### CK, HSTROPN, CMP, BNP #### [facility] [address] [place] [address] Dr. Tan OliverosIG #0.02 10e3/ulNormal0.00-0.03The [facility] HospitalComment on above:Performed By: #### CK, HSTROPN, CMP, BNP #### [facility] [address] [address] [address] Tan Panchal %0.4 %Normal0.0-0.5The [facility] HospitalComment on above: Performed By: #### CK, HSTROPN, CMP, BNP #### [facility] [address] [address] [address] Tan Armstrong #0.7 103/ulCritically low1.2-3.8The [facility] Comment on above:Performed By: #### CK, HSTROPN, CMP, BNP #### [facility] [address] [address] [address] Tan Singletonhocytes/100 WBC (Bld)12.3 %Critically low20.5-60.0The [facility] HospitalComment on above:Performed By: #### CK, HSTROPN, CMP, BNP #### [facility] [address] [address] [address] Tan BrizuelaUAL DIFF REQNONormalThe [facility] HospitalComment on above: Performed By: #### CK, HSTROPN, CMP, BNP #### [facility] [address] [place] [address] Dr. Tan Duarte (RBC) [Entitic mass]26.1 unRqxcfk96.9-34.0The [facility] HospitalComment on above:Performed By: #### CK, HSTROPN, CMP, BNP #### [facility] [address] [place] [address] Dr. Tan Duarte (RBC) [Mass/Vol]33.0 g/eQPrxprc62.9-35.2The [facility] HospitalComment on above:Performed By: #### CK, HSTROPN, CMP, BNP #### [facility] [address] [place] [address] Dr. Tan Duarte (RBC) [Entitic vol]79.2 fLCritically low80.0-94.0The [facility] HospitalComment on above:Performed By: #### CK, HSTROPN, CMP, BNP #### [facility] [address] [address] [address] Tan Torres #0.4 103/ulNormal0.3-0.8The [place] HospitalComment on above:Performed By: #### CK, HSTROPN, CMP, BNP #### [facility] [address] [address] [address] Tan Riveraocytes/100 WBC (Bld)6.5 %Normal1.7-12.0The [facility] Comment on above:Performed By: #### CK, HSTROPN, CMP, BNP #### [facility] [address] [place] [address] Dr. Tan Goode #4.3 103/ulNormal1.4-6.5The [facility] HospitalComment on above:Performed By: #### CK, HSTROPN, CMP, BNP #### [facility] [address] [place] [address] Dr. Tan Cardosoophils/100 WBC (Bld)76.2 %Critically high43.0-75.0The [facility] HospitalComment on above:Performed By: #### CK, HSTROPN, CMP, BNP #### [facility] [address] [place] [address] Dr. Tan Murray mean volume (Bld) [Entitic vol]9.7 fLNormal9.5-13.5The [facility] HospitalComment on above:Performed By: #### CK, HSTROPN, CMP, BNP #### [facility] [address] [place] [address] Dr. Tan OliverosPLT199 103/qkTsyaau243-041Dwv [facility] HospitalComment on above: Performed By: #### CK, HSTROPN, CMP, BNP #### [facility] [address] [place] [address] Dr. Tan OliverosRBC4.86 106/ulNormal4.70-6.10The [facility] HospitalComment on above:Performed By: #### CK, HSTROPN, CMP, BNP #### [facility] [address] [place] [address] Dr. Tan OliverosWCHANTEL5.7 103/ulNormal4.0-11.0The [facility] HospitalComment on above: Performed By: #### CK, HSTROPN, CMP, BNP #### [facility] [address] [place] [address] Dr. Tan OliverosCULTURE URINEon 27-46-0491GCJPQXH URINECulture Observations: NO GROWTH.NormalMetrohealth Parma Medical CenterComment on above:Performed By: #### CK, HSTROPN, CMP, BNP #### [facility] [address] [place] [address] Dr. Tan Mackay URINE PROFILEon 88-79-2808Vpiwfmdmb Ql (U)NegativeNormal NEGATIVEThe [facility] HospitalComment on above:Performed By: #### CK, HSTROPN, CMP, BNP #### [facility] [address] [place] [address] Dr. Tan OliverosClarity (U)CLEARNormalCLEARThe [facility] HospitalComment on above: Performed By: #### CK, HSTROPN, CMP, BNP #### [facility] [address] [place] [address] Dr. Tan Spencer (U)LT. YELLOWNormalYELLOWMetrohealth Parma Medical CenterComment on above:Performed By: #### CK, HSTROPN, CMP, BNP #### [facility] [address] [place] [address] Dr. Tan Holm micrscopic examination will be performed if indicated. NormalMetrohealth Parma Medical CenterComment on above:Performed By: #### CK, HSTROPN, CMP, BNP #### [facility] [address] [place] [address] Dr. Tan OliverosGlucose Ql (U)NegativeNormalNEGATIVEThe [facility] HospitalComment on above:Performed By: #### CK, HSTROPN, CMP, BNP #### [facility] [address] [address] [address] Tan OliverosHemoglobin Ql (U)LARGEAbnormalNEGATIVEMetrohealth Parma Medical Center Comment on above:Performed By: #### CK, HSTROPN, CMP, BNP #### [facility] [address] [address] [address] Tan Stallingsones Ql (U)NegativeNormalNEGATIVEMetrohealth Parma Medical CenterComment on above:Performed By: #### CK, HSTROPN, CMP, BNP #### [facility] [address] [address] [address] Tan MattsonOCYTESSMALLAbnormalNEGATIVEMetrohealth Parma Medical CenterComment on above:Performed By: #### CK, HSTROPN, CMP, BNP #### [facility] [address] [place] [address] Dr. Tan Mendeztrite Ql (U)NegativeNormalNEGATIVEMetrohealth Parma Medical CenterComment on above:Performed By: #### CK, HSTROPN, CMP, BNP #### [facility] [address] [address] [address] Tan OliverospH (U)6.0 [pH]Normal5-9[facility] Medical CenterComment on above: Performed By: #### CK, HSTROPN, CMP, BNP #### [facility] [address] [place] [address] Dr. Tan OliverosSPEC GRAVITY1.607Fmzcfu7.005-<=1.025The [facility] HospitalComment on above:Performed By: #### CK, HSTROPN, CMP, BNP #### [facility] [address] [place] [address] Dr. Tan OliverosUA PROTEINNegativeNormalNEGATIVE/ TRACEThe [facility] Comment on above:Performed By: #### CK, HSTROPN, CMP, BNP #### [facility] [address] [address] [address] Tan Mejia MICRO INDINDICATEDNormalThe [facility] HospitalComment on above: Performed By: #### CK, HSTROPN, CMP, BNP #### [facility] [address] [address] [address] Tan Barretobilryley Qn (U)0.2 {Maged'U}/dLNormal0.2 - 1.0The [facility] HospitalComment on above:Performed By: #### CK, HSTROPN, CMP, BNP #### [facility] [address] [address] [address] Tan OliverosPOINT OF CARE GLUCOSEon 85-27-5899Shkeywk [Mass/Vol]114 mg/dL Critically tuud26-034Xzn [facility] HospitalComment on above:Performed By: #### CK, HSTROPN, CMP, BNP #### [facility] [address] [address] [address] Tan NickF CHEM 8 (BAS METB)on 12-90-6146Qwaat gap [Moles/Vol]13.2 mmol/LNormalThe [facility] HospitalComment on above:Performed By: #### HSTROPN, BMP #### [facility] [address] [address] [address] Tan OliverosCalcium [Mass/Vol]8.9 mg/dLNormal8.5-10.1[facility] Comment on above:Performed By: #### HSTROPN, BMP #### [facility] [address] [address] [address] Tan OliverosChloride [Moles/Vol]104 mmol/LIaurcj23-236Dvk [facility] Comment on above:Performed By: #### HSTROPN, BMP #### [facility] [address] [address] [address] Tan OliverosCO2 [Moles/Vol]27.1 mmol/MKsqpbm07.0-32.0[facility] Comment on above:Performed By: #### HSTROPN, BMP #### [facility] [address] [address] [address] Tan OliverosCreatinine [Mass/Vol]2.11 mg/dLCritically high0.70-1.30The [place] HospitalComment on above:Performed By: #### HSTROPN, BMP #### [facility] [address] [address] [address] Tan SantosGFR-AF MGJXESIY97 mL/min/1.48p3Hpsuagjhkw low>=60The [facility] HospitalComment on above:Performed By: #### HSTROPN, BMP #### [facility] [address] [address] [address] Tan SantosGFR-NON AF GWJAZYKU27 mL/min/1.43q0Loehifcxpt low>=60The [facility] HospitalComment on above:Performed By: #### HSTROPN, BMP #### [facility] [address] [place] [address] Dr. Tan OliverosGlucose [Mass/Vol]107 mg/dLCritically jrco88-810Vbo [facility] HospitalComment on above:Performed By: #### HSTROPN, BMP #### [facility] [address] [place] [address] Dr. Tan OliverosPotassium [Moles/Vol]4.3 mmol/LNormal3.5-5.1[facility] Comment on above:Performed By: #### HSTROPN, BMP #### [facility] [address] [place] [address] Dr. Tan Duartedium [Moles/Vol]140 mmol/QPyfwbi359-179ZzcMetrohealth Parma Medical Center Comment on above:Performed By: #### HSTROPN, BMP #### [facility] [address] [place] [address] Dr. Tan OliverosUrea nitrogen [Mass/Vol]32.0 mg/dLCritically high7.0-18.0The [facility] HospitalComment on above:Performed By: #### HSTROPN, BMP #### [facility] [address] [place] [address] Dr. Tan Regan nitrogen/Creatinine [Mass ratio]15.2 mg/mgNormalThe [facility] HospitalComment on above:Performed By: #### HSTROPN, BMP #### [facility] [address] [place] [address] Dr. Tan Castañeda, HIGH SENSITIVITYon 83-01-5922FUIZJS38.6 pg/mLNormal 4.0-76.1[facility] on above:Result Comment: CUT-OFF POINTS HAVE BEEN ESTABLISHED BASED ON THE FOURTH UNIVERSAL DEFINITIONS OF MYOCARDIAL INFARCTION. THE UPPER REFERENCE LIMIT (URL) OF TROPONIN, DEFINED THE 99TH PERCENTILE OF cTnI DISTRIBUTION IN A REFERENCE POPULATION, HAS BEEN CONFIRMED THE DECISION THRESHOLD FOR DE DIAGNOSIS.Performed By: #### HSTROPN, BMP #### [facility] [address] [place] [address] Dr. Tan Alvarado MICROSCOPIC ONLYon 09-65-2931IZAMAYSBRSSKHVaebqejyIPJZ SEEN [facility] CenterComcorewell health [facility] on above:Performed By: #### CK, HSTROPN, CMP, BNP #### [facility] [address] [place] [address] Dr. Tan Hoff identified Cx Nom (U)INDICATEDNoalThSelect Medical Specialty Hospital - Cincinnati NorthComcorewell health greenville hospital on above:Performed By: #### CK, HSTROPN, CMP, BNP #### [facility] [address] [place] [address] Dr. Tan Hinkle SEENNormalNONE SEENPeoples Hospital on above:Performed By: #### CK, HSTROPN, CMP, BNP #### [facility] [address] [place] [address] Dr. Tan Yo LM Nom (Urine sed)NONE SEENNormalNONE SEENPeoples Hospital on above:Performed By: #### CK, HSTROPN, CMP, BNP #### [facility] [address] [place] [address] Dr. Maddox ChangEpithelial cells LM Ql (Urine sed)RARENormalNONE SEEN /RAREPeoples Hospital on above:Performed By: #### CK, HSTROPN, CMP, BNP #### [facility] [address] [place] [address] Dr. Tan OliverosCOUSRENNY SEENNormalNONE SEENThe [place] HospitalComment on above:Performed By: #### CK, HSTROPN, CMP, BNP #### [facility] [address] [address] [address] Tan OliverosFtrurYHF60-70Poueabem1-0Geg [facility] on above: Performed By: #### CK, HSTROPN, CMP, BNP #### [facility] [address] [address] [address] Tan OliverosWBC2-5AbnormalNONE SEENThe [facility] HospitalComment on above: Performed By: #### CK, HSTROPN, CMP, BNP #### [facility] [address] [address] [address] Tan OliverosXR CHEST 1 Von 97-05-1994YU CHEST 1 VEXAM: XR CHEST 1 V HISTORY: SHORTNESS OF BREATH COMPARISON: 02/26/2022 TECHNIQUE: Single view of the FINDINGS: Heart size normal. No focal consolidation, pleural effusion, pulmonary congestion or pneumothorax. IMPRESSION: No acute findings. Electronically authenticated by: AUGUSTINA JAMES Date: 2022-12-08 12:54[facility] [id number] [id number]#1.00CD:127[facility] HospitalAmbulatory Visit Summaryon [id number] Visit Summary JUAN JOSE AUSTIN Shirley :1940 Visit Date:12/05/2022 Ambulatory Visit Instructions Your Diagnosis Enlarged prostate with urinary obstruction Bladder cancer Cancer of kidney Gross hematuria Other obstructive and reflux uropathy Tests Performed Urnls Dip Stick Auto w/o Microscopy POC 25445 Your Care Team Attending Physician - JENNIFER FOUNTAIN, Jian Lee Primary Care Physician - Sergio Sneed MD This Is Your Medications List [...] Biopsy of bladder (05/15/2018), Pyeloscopy (05/10/2016), Renal biopsy(01/10/2012), Instillation of BCG into the bladder (09/18/2010), [...] Urology [address], [place] [id number]- Medications What How Much When Instructions Unchanged [...] Mouth Every day Contact prescribing physician if questionsor concerns Unchanged hydrALAZINE (hydrALAZINE 10 mg Tab) [...] Urnls Dip Stick Auto w/o Microscopy POC 97928 (12/05/2022) Bilirubin Urine Dipstick - Negative Blood Urine Dipstick - 3+ Large Glucose Urine Dipstick - 1+ 250 mg/dl Ketones Urine Dipstick - Negative Leukocytes Urine Dipstick - 1+ Small Nitrite Urine Dipstick - Negative Protein Urine Dipstick - Trace Specific Edmonds Urine Dipstick - 1.020 Urine Appearance Urine [...] following factors may make (more content not included)...[facility] HospitalPatient Educationon [phone] EducationOncology Bladder Cancer Bladder cancer is an abnormal [...] through your urethra (cystoscopy) in order to viewthe lining of your bladder for tumors. ? [...] Follow these instructions at home: ? Take xnzb-meh-cukivit and prescription medicines only as told by [...] important. Where to find more information ? [place] [employer]: www.cancer.org ? National Cancer [employer] (NCI): www.cancer.gov Contact a health care provider [...] 10/02/2004 Document Revised: 09/12/2018 Document Reviewed: 09/03/2017 [employer] Patient Education ? 2019 [employer]alo.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 Pathology showed [...] denies hematuria, denies discharge, denies urinary frequency, deniesurinary hesitancy, denies nocturia, denies incontinence, denies genital [...] bleeding and possibly kidney failure if the stentis removed. PT will like to move forward [...] discomfort, among others. Stent removal or changes mayalso be required in the future. Full informed consent has been obtained. Will order General anesthesia. 4. Gross hematuria (R31.0: Gross hematuria) UA today shows large blood and small JOHNNIE Other obstructive and reflux uropathy (N13.8: Other obstructive and reflux uropathy) Follow-up With When Contact Information JENNIFER FOUNTAIN, Jian Lee, URL [facility] [address], [place] [id number]- Additional Instructions: Patient Education Bladder Cancer I, [...] urinary obstruction Gross hematuria (more content not included)...[facility] Comment on above:Result Comment: Electronically Signed By: Jian RODRIGUEZ MD.br\Date and Time Signed: 12/05/22 10:43 EST\.br\Electronically Co-Signed By: Priya Moodybr\Date and Time Co-Signed: 12/05/22 10:40 ESTConsultation Noteon [id number] Note [id number]#1.00CD:127NormUniversity Hospitals [address] John Medical CenterCB AUTO DIFFon [id number] #0.1 103/ulNormal0.0-0.1The [facility] HospitalComment on above:Performed By: #### CK, HSTROPN, CMP, BNP #### [facility] [address] [place] [address] Dr. Tan OliverosBasophils/100 WBC (Bld)0.7 %Normal0.2-2.0The [facility] Comment on above:Performed By: #### CK, HSTROPN, CMP, BNP #### [facility] [address] [address] [address] Tan Ram #0.2 103/ulNormal0.0-0.7The [facility] HospitalComment on above: Performed By: #### CK, HSTROPN, CMP, BNP #### [facility] [address] [address] [address] Tan Santososinophils/100 WBC (Bld)2.6 %Normal0.9-7.0The [facility] Comment on above:Performed By: #### CK, HSTROPN, CMP, BNP #### [facility] [address] [address] [address] Tan Santosrythrocyte distribution width (RBC) [Ratio]17.2 %Critically high 11.0-15.0The [facility] HospitalComment on above:Performed By: #### CK, HSTROPN, CMP, BNP #### [facility] [address] [place] [address] Dr. Tan OliverosHematocrit (Bld) [Volume fraction]43.8 %Lkwxhj10.0-54.0The [facility] HospitalComment on above:Performed By: #### CK, HSTROPN, CMP, BNP #### [facility] [address] [place] [address] Dr. Tan OliverosHemoglobin (Bld) [Mass/Vol]14.4 g/nSSiuhgu30.0-18.0The [place] HospitalComment on above:Performed By: #### CK, HSTROPN, CMP, BNP #### [facility] [address] [place] [address] Dr. Tan Panchal #0.01 10e3/ulNormal0.00-0.03The [facility] HospitalComment on above:Performed By: #### CK, HSTROPN, CMP, BNP #### [facility] [address] [place] [address] Dr. Tan Panchal %0.1 %Normal0.0-0.5The [facility] HospitalComment on above: Performed By: #### CK, HSTROPN, CMP, BNP #### [facility] [address] [place] [address] Dr. Tan Armstrong #1.3 103/ulNormal1.2-3.8The [facility] HospitalComment on above:Performed By: #### CK, HSTROPN, CMP, BNP #### [facility] [address] [place] [address] Dr. Tan Singletonhocytes/100 WBC (Bld)18.4 %Critically low20.5-60.0The [facility] HospitalComment on above:Performed By: #### CK, HSTROPN, CMP, BNP #### [facility] [address] [place] [address] Dr. Tan BrizuelaUAL DIFF REQNONormalThe [facility] HospitalComment on above: Performed By: #### CK, HSTROPN, CMP, BNP #### [facility] [address] [place] [address] Dr. Tan Altman (RBC) [Entitic mass]25.0 pgCritically low25.9-34.0The [facility] HospitalComment on above:Performed By: #### CK, HSTROPN, CMP, BNP #### [facility] [address] [place] [address] Dr. Tan Duarte (RBC) [Mass/Vol]32.9 g/hXIidzcw54.9-35.2The [place] HospitalComment on above:Performed By: #### CK, HSTROPN, CMP, BNP #### [facility] [address] [place] [address] Dr. Tan Duarte (RBC) [Entitic vol]75.9 fLCritically low80.0-94.0The [facility] HospitalComment on above:Performed By: #### CK, HSTROPN, CMP, BNP #### [facility] [address] [place] [address] Dr. Tan Torres #0.5 103/ulNormal0.3-0.8The [facility] HospitalComment on above:Performed By: #### CK, HSTROPN, CMP, BNP #### [facility] [address] [place] [address] Dr. Tan Riveraocytes/100 WBC (Bld)7.1 %Normal1.7-12.0The [facility] Comment on above:Performed By: #### CK, HSTROPN, CMP, BNP #### [facility] [address] [place] [address] Dr. Tan Goode #5.1 103/ulNormal1.4-6.5The [facility] HospitalComment on above:Performed By: #### CK, HSTROPN, CMP, BNP #### [facility] [address] [place] [address] Dr. Tan Sullivanutrophils/100 WBC (Bld)71.1 %Karwob40.0-75.0The [facility] HospitalComment on above:Performed By: #### CK, HSTROPN, CMP, BNP #### [facility] [address] [place] [address] Dr. Tan Murray mean volume (Bld) [Entitic vol]9.3 fLCritically low 9.5-13.5The [facility] HospitalComment on above:Performed By: #### CK, HSTROPN, CMP, BNP #### [facility] [address] [place] [address] Dr. Tan OliverosPLT209 103/ghLgjljx823-307Bfl [facility] HospitalComment on above: Performed By: #### CK, HSTROPN, CMP, BNP #### [facility] [address] [place] [address] Dr. Tan OliverosRBC5.77 106/ulNormal4.70-6.10The [facility] HospitalComment on above:Performed By: #### CK, HSTROPN, CMP, BNP #### [facility] [address] [place] [address] Dr. Tan OliverosWBC7.2 103/ulNormal4.0-11.0The [facility] HospitalComment on above: Performed By: #### CK, HSTROPN, CMP, BNP #### [facility] [address] [place] [address] Dr. Tan Perez URINEon [id number] URINECulture Observations: NO GROWTH.NormalThe [facility] HospitalComment on above:Performed By: #### CK, HSTROPN, CMP, BNP #### [facility] [address] [place] [address] Dr. Tan Mackay URINE PROFILEon 62-24-4514Epuqetlcs Ql (U)Unable to perform testing due to color interference.AbnormalNEGATIVEThe [facility] HospitalComment on above:Performed By: #### CK, HSTROPN, CMP, BNP #### [facility] [address] [place] [address] Dr. Tan OlievrosClmaria ines (U)CLEARNormalCLEARThe [facility] HospitalComment on above: Performed By: #### CK, HSTROPN, CMP, BNP #### [facility] [address] [place] [address] Dr. Tan Spencer (U)REDAbnormalYELLOWSelect Medical Specialty Hospital - Trumbull HospitalComment on above: Performed By: #### CK, HSTROPN, CMP, BNP #### [facility] [address] [address] [address] Tan Holm micrscopic examination will be performed if indicated. NormalThe [place] HospitalComment on above:Performed By: #### CK, HSTROPN, CMP, BNP #### [facility] [address] [address] [address] Tan OliverosGlucose Ql (U)Unable to perform testing due to color interference.AbnormalNEGATIVESelect Medical Specialty Hospital [facility] HospitalComment on above:Performed By: #### CK, HSTROPN, CMP, BNP #### [facility] [address] [address] [address] Tan OliverosHemoglobin Ql (U)Unable to perform testing due to color interference.AbnormalNEGATIVESelect Medical Specialty [facility] HospitalComment on above:Performed By: #### CK, HSTROPN, CMP, BNP #### [facility] [address] [address] [address] Tan Troy Ql (U)Unable to perform testing due to color interference.AbnormalNEGATIVESelect Medical Specialty [facility] HospitalComment on above:Performed By: #### CK, HSTROPN, CMP, BNP #### [facility] [address] [place] [address] Dr. Tan Sanchez to perform testing due to color interference. AbnormalNEGATIVESelect Medical Specialty [facility] HospitalComment on above:Performed By: #### CK, HSTROPN, CMP, BNP #### [facility] [address] [address] [address] Tan Serranoite Ql (U)Unable to perform testing due to color interference.AbnormalNEGATIVESelect Medical Specialty [facility] HospitalComment on above:Performed By: #### CK, HSTROPN, CMP, BNP #### [facility] [address] [address] [address] Tan Triplett to perform testing due to color interference.Abnormal5-9 The [place] HospitalComment on above:Performed By: #### CK, HSTROPN, CMP, BNP #### [facility] [address] [address] [address] Tan OliverosSPEC GRAVITY<=1.578Macehmuz4.005-<=1.025The [facility] Comment on above:Performed By: #### CK, HSTROPN, CMP, BNP #### [facility] [address] [place] [address] Dr. Tan Yang PROTEINUnadenisa to perform testing due to color interference. NormalNEGATIVE/ TRACEThe [facility] HospitalComment on above:Performed By: #### CK, HSTROPN, CMP, BNP #### [facility] [address] [place] [address] Dr. Tan Mejia MICRO INDINDICATEDNormalThe [facility] HospitalComment on above: Performed By: #### CK, HSTROPN, CMP, BNP #### [facility] [address] [place] [address] Dr. Tan BarretoBILINOGENCarmelita to perform testing due to color interference. Normal0.2 - 1.0The [facility] HospitalComment on above:Performed By: #### CK, HSTROPN, CMP, BNP #### [facility] [address] [place] [address] Dr. Tan OliverosPROF 14(COMP METB)on 89-88-3516Ktjzegh [Mass/Vol]3.8 g/dLNormal 3.4-5.0The [facility] HospitalComment on above:Performed By: #### CK, HSTROPN, CMP, BNP #### [facility] [address] [place] [address] Dr. Tan OliverosAlbumin/Globulin [Mass ratio]1.3 {ratio}NormalThe [facility] on above:Performed By: #### CK, HSTROPN, CMP, BNP #### [facility] [address] [place] [address] Dr. Tan CrowderP [Catalytic activity/Vol]81 U/WXfntfn94-167Bcu [place] HospitalComment on above:Performed By: #### CK, HSTROPN, CMP, BNP #### [facility] [address] [address] [address] Tan Kay [Catalytic activity/Vol]20 U/XZyknfj83-94Ffd [facility] HospitalComment on above:Performed By: #### CK, HSTROPN, CMP, BNP #### [facility] [address] [address] [address] Tan Camachoon gap [Moles/Vol]14.3 mmol/LNormalThe [facility] Comment on above:Performed By: #### CK, HSTROPN, CMP, BNP #### [facility] [address] [place] [address] Dr. Tan Dawson [Catalytic activity/Vol]26 U/VJjcwwx26-32Nhj [facility] HospitalComment on above:Performed By: #### CK, HSTROPN, CMP, BNP #### [facility] [address] [place] [address] Dr. aTn OliverosBilirubin [Mass/Vol]0.7 mg/dLNormal0.2-1.0[facility] Comment on above:Performed By: #### CK, HSTROPN, CMP, BNP #### [facility] [address] [place] [address] Dr. Tan OliverosCalcium [Mass/Vol]8.9 mg/dLNormal8.5-10.1[facility] Comment on above:Performed By: #### CK, HSTROPN, CMP, BNP #### [facility] [address] [place] [address] Dr. Tan OliverosChloride [Moles/Vol]101 mmol/YUjdkao95-189HfiMetrohealth Par[facility] Medical Center Comment on above:Performed By: #### CK, HSTROPN, CMP, BNP #### [facility] [address] [place] [address] Dr. Tan OliverosCO2 [Moles/Vol]27.9 mmol/PJklnif46.0-32.0[facility] Comment on above:Performed By: #### CK, HSTROPN, CMP, BNP #### [facility] [address] [place] [address] Dr. Tan OliverosCreatinine [Mass/Vol]1.85 mg/dLCritically high0.70-1.30The [facility] HospitalComment on above:Performed By: #### CK, HSTROPN, CMP, BNP #### [facility] [address] [place] [address] Dr. Maddox ChangEGFR-AF HYQPFKBE65 mL/min/1.08x4Jhcfiegear low>=60The [facility] HospitalComment on above:Performed By: #### CK, HSTROPN, CMP, BNP #### [facility] [address] [place] [address] Dr. Tan SantosGFR-NON AF ZHHWBXBY53 mL/min/1.58k7Lnyxzldydg low>=60The [facility] HospitalComment on above:Performed By: #### CK, HSTROPN, CMP, BNP #### [facility] [address] [place] [address] Dr. Tan OliverosGlobulin (S) [Mass/Vol]3.0 g/dLNormalThe [facility] HospitalComment on above:Performed By: #### CK, HSTROPN, CMP, BNP #### [facility] [address] [place] [address] Dr. Tan OliverosGlucose [Mass/Vol]114 mg/dLCritically jvom60-961Aqw [facility] on above:Performed By: #### CK, HSTROPN, CMP, BNP #### [facility] [address] [place] [address] Dr. Tan OliverosPotassium [Moles/Vol]4.2 mmol/LNormal3.5-5.1[facility] Comment on above:Performed By: #### CK, HSTROPN, CMP, BNP #### [facility] [address] [place] [address] Dr. Tan OliverosProtein [Mass/Vol]6.8 g/dLNormal6.4-8.2The [facility] Comment on above:Performed By: #### CK, HSTROPN, CMP, BNP #### [facility] [address] [address] [address] Tan Leonardum [Moles/Vol]139 mmol/CTrdkaq950-093Ngp [facility] Comment on above:Performed By: #### CK, HSTROPN, CMP, BNP #### [facility] [address] [address] [address] Tan Regan nitrogen [Mass/Vol]27.0 mg/dLCritically high7.0-18.0The [facility] HospitalComment on above:Performed By: #### CK, HSTROPN, CMP, BNP #### [facility] [address] [place] [address] Dr. Tan Regan nitrogen/Creatinine [Mass ratio]14.6 mg/mgNoPremier Health Miami Valley Hospital NorthComment on above:Performed By: #### CK, HSTROPN, CMP, BNP #### [facility] [address] [place] [address] Dr. Tan Wells 62-41-1281VQV Coag (PPP) [Relative time]0.99 {INR} NormalMetrohealth Parma Medical CenterComment on above:Performed By: #### CK, HSTROPN, CMP, BNP #### [facility] [address] [place] [address] Dr. Tan Muller GUIDELINESSEE BELOWTriHealth Bethesda North HospitalComment on above:Result Comment: DESIRED INR: 2.0 - 3.0 CONDITIONS NOT LISTED BELOW 2.5 - 3.5 FOR PROSTHETIC HEART VALVE REPLACEMENT 2.5 - 3.5 RECURRENT THROMBOSIS Performed By: #### CK, HSTROPN, CMP, BNP #### [facility] [address] [place] [address] Dr. Tan Porter Coag (PPP) [Time]10.5 sNormal9.0-11.6[facility] Comment on above:Performed By: #### CK, HSTROPN, CMP, BNP #### [facility] [address] [place] [address] Dr. Tan Barbosa [id number] Coag (Bld) [Time]28.4 cMflurj06.3-36.2[facility] on above:Performed By: #### CK, HSTROPN, CMP, BNP #### [facility] [address] [address] [address] Tan TERRAZAS ONLYon [id number]ktqreZEVX SEEN [facility] on above:Performed By: #### CK, HSTROPN, CMP, BNP #### [facility] [address] [address] [address] Tan Hoff identified Cx Nom (U)CX ALREADY ORDEREDNoUK Healthcare on above:Performed By: #### CK, HSTROPN, CMP, BNP #### [facility] [address] [place] [address] Dr. Tan Hinkle SEENNormalNONE SEENPe[facility] on above:Performed By: #### CK, HSTROPN, CMP, BNP #### [facility] [address] [address] [address] Tan Yo LM Nom (Urine sed)NONE SEENNormalNONE SEENPeoples Hospital on above:Performed By: #### CK, HSTROPN, CMP, BNP #### [facility] [address] [address] [address] Maddox ChangEpithelial cells LM Ql (Urine sed)NONE SEENNormalNONE SEEN /RARE [facility] on above:Performed By: #### CK, HSTROPN, CMP, BNP #### [facility] [address] [address] [address] Tan OlvierosCOUSNONE SEENNormalNONE SEENPeoples [facility] on above:Performed By: #### CK, HSTROPN, CMP, BNP #### [facility] [address] [address] [address] Tan Dodge (U) [#/Vol]/uLAbnormal0-2The [facility] HospitalComment on above:Performed By: #### CK, HSTROPN, CMP, BNP #### [facility] [address] [place] [address] Dr. Tan MuñizBC0-2AbnormalNONE SEENThe [facility] HospitalComment on above: Performed By: #### CK, HSTROPN, CMP, BNP #### [facility] [address] [place] [address] Dr. Tan OliverosINSULINon 61-50-5623Ozdhrub79.4 uIU/mLNormal2.6-24.9The [facility] HospitalComment on above:Performed By: #### CK, HSTROPN, CMP, BNP #### [facility] [address] [place] [address] Dr. Tan Cavanaugh [id number] peptide B (Bld) [Mass/Vol]715.0 pg/mL Normal<=1,800.0The [facility] HospitalComment on above:Performed By: #### CK, HSTROPN, CMP, BNP #### [facility] [address] [place] [address] Dr. Tan Villagomez AUTO DIFFon [id number] #0.0 103/ulNormal0.0-0.1The [facility] HospitalComment on above:Performed By: #### CK, HSTROPN, CMP, BNP #### [facility] [address] [place] [address] Dr. Tan Villasophils/100 WBC (Bld)0.7 %Normal0.2-2.0[facility] Comment on above:Performed By: #### CK, HSTROPN, CMP, BNP #### [facility] [address] [place] [address] Dr. Tan Ram #0.1 103/ulNormal0.0-0.7The [facility] HospitalComment on above: Performed By: #### CK, HSTROPN, CMP, BNP #### [facility] [address] [place], [place] [id number] Dr. Tan Santososinophils/100 WBC (Bld)2.1 %Normal0.9-7.0[facility] Comment on above:Performed By: #### CK, HSTROPN, CMP, BNP #### [facility] [address] [place] [address] Dr. Tan Santosrythrocyte distribution width (RBC) [Ratio]15.9 %Critically high 11.0-15.0The [facility] HospitalComment on above:Performed By: #### CK, HSTROPN, CMP, BNP #### [facility] [address] [place] [address] Dr. Tan OliverosHematocrit (Bld) [Volume fraction]45.1 %Bgojbl44.0-54.0The [facility] HospitalComment on above:Performed By: #### CK, HSTROPN, CMP, BNP #### [facility] [address] [place] [address] Dr. Tan OliverosHemoglobin (Bld) [Mass/Vol]14.1 g/hHWvtphg64.0-18.0The [facility] HospitalComment on above:Performed By: #### CK, HSTROPN, CMP, BNP #### [facility] [address] [place] [address] Dr. Tan Panchal #0.02 10e3/ulNormal0.00-0.03The [facility] HospitalComment on above:Performed By: #### CK, HSTROPN, CMP, BNP #### [facility] [address] [place] [address] Dr. Tan Panchal %0.3 %Normal0.0-0.5The [facility] HospitalComment on above: Performed By: #### CK, HSTROPN, CMP, BNP #### [facility] [address] [place] [address] Dr. Tan LuqueMPH #0.7 103/ulCritically low1.2-3.8[facility] Comment on above:Performed By: #### CK, HSTROPN, CMP, BNP #### [facility] [address] [place] [address] Dr. Tan Luquemphocytes/100 WBC (Bld)12.4 %Critically low20.5-60.0The [facility] HospitalComment on above:Performed By: #### CK, HSTROPN, CMP, BNP #### [facility] [address] [place] [address] Dr. Tan BrizuelaUAL DIFF REQNONormalThe Leeds HospitalComment on above: Performed By: #### CK, HSTROPN, CMP, BNP #### [facility] [address] [place] [address] Dr. Tan Duarte (RBC) [Entitic mass]23.7 pgCritically low25.9-34.0The [facility] HospitalComment on above:Performed By: #### CK, HSTROPN, CMP, BNP #### [facility] [address] [place] [address] Dr. Tan Duarte (RBC) [Mass/Vol]31.3 g/iPZrvexc32.9-35.2The [facility] HospitalComment on above:Performed By: #### CK, HSTROPN, CMP, BNP #### [facility] [address] [place] [address] Dr. Tan Duarte (RBC) [Entitic vol]75.7 fLCritically low80.0-94.0The [facility] HospitalComment on above:Performed By: #### CK, HSTROPN, CMP, BNP #### [facility] [address] [place] [address] Dr. Tan Torres #0.4 103/ulNormal0.3-0.8The [facility] HospitalComment on above:Performed By: #### CK, HSTROPN, CMP, BNP #### [facility] [address] [place] [address] Dr. Tan Riveraocytes/100 WBC (Bld)6.8 %Normal1.7-12.0[facility] Comment on above:Performed By: #### CK, HSTROPN, CMP, BNP #### [facility] [address] [place] [address] Dr. Tan Goode #4.5 103/ulNormal1.4-6.5The [facility] HospitalComment on above:Performed By: #### CK, HSTROPN, CMP, BNP #### [facility] [address] [place] [address] Dr. Tan Cardosoophils/100 WBC (Bld)77.7 %Critically high43.0-75.0The [facility] HospitalComment on above:Performed By: #### CK, HSTROPN, CMP, BNP #### [facility] [address] [place] [address] Dr. Tan Murray mean volume (Bld) [Entitic vol]9.3 fLCritically low 9.5-13.5The [facility] HospitalComment on above:Performed By: #### CK, HSTROPN, CMP, BNP #### [facility] [address] [place] [address] Dr. Tan OliverosPLT205 103/ybZilvwd650-119Rac [facility] HospitalComment on above: Performed By: #### CK, HSTROPN, CMP, BNP #### [facility] [address] [place] [address] Dr. Tan OliverosRBC5.96 106/ulNormal4.70-6.10The [facility] HospitalComment on above:Performed By: #### CK, HSTROPN, CMP, BNP #### [facility] [address] [place] [address] Dr. Tan OliverosWBC5.7 103/ulNormal4.0-11.0The [facility] HospitalComment on above: Performed By: #### CK, HSTROPN, CMP, BNP #### [facility] [address] [place] [address] Dr. Tan Kee THYROXINE INDEX T7on 71-33-1573GGS3.75Swezef2.30-4.50The [facility] HospitalComment on above:Performed By: #### CK, HSTROPN, CMP, BNP #### [facility] [address] [address] [address] Tan OliverosT3U36.0 %Wdydvf54.0-40.0The [facility] HospitalComment on above: Performed By: #### CK, HSTROPN, CMP, BNP #### [facility] [address] [address] [address] Tan OliverosT4 [Mass/Vol]6.50 ug/dLNormal4.50-12.10[facility] Comment on above:Performed By: #### CK, HSTROPN, CMP, BNP #### [facility] [address] [place] [address] Dr. Tan OliverosGLYCOHEMOGLOBIN A1Con 51-84-2988KVI RECOMMENDATIONSEE BELOWNormal The [facility] HospitalComment on above:Result Comment: ADA RECOMMENDED LIMIT 4.0 - 6.0 ADA THERAPEUTIC TARGET < 7.0 ACTION SUGGESTED > 7.0Performed By: #### CK, HSTROPN, CMP, BNP #### [facility] [address] [place] [address] Dr. Tan OliverosGlucose [Mass/Vol]114 mg/dLNormalThSelect Medical Specialty Hospital - Cincinnati NorthComment on above:Performed By: #### CK, HSTROPN, CMP, BNP #### [facility] [address] [place] [address] Dr. Tan OliverosHbA1c (Bld) [Mass fraction]5.6 %Normal4.5-6.2The [facility] HospitalComment on above:Performed By: #### CK, HSTROPN, CMP, BNP #### [facility] [address] [place] [address] Dr. Tan Fair 42-18-4834Gtfr [Mass/Vol]40.0 ug/dLCritically low 65.0-175.0The [facility] HospitalComment on above:Performed By: #### IRON, PSASC, VITAD #### [facility] [address] [place] [address] Dr. Tan OliverosLIPID PROFILEon [id number]-HDL RATIO NORMSHolmes County Joel Pomerene Memorial HospitalComment on above:Result Comment: 3.3 - 4.4 LOW RISK 4.4 - 7.1 AVERAGE RISK 7.1 - 11.0 MODERATE RISK >11.0 HIGH RISKPerformed By: #### BNP, T7, CMP, TSH, LIPID #### [facility] [address] [address] [address] Tan OliverosCholesterol [Mass/Vol]159 mg/dLNormal<=200[facility] Comment on above:Performed By: #### BNP, T7, CMP, TSH, LIPID #### [facility] [address] [address] [address] Tan Pinedaesterol in HDL [Mass/Vol]66 mg/dLCritically heik64-35OfjMetrohealth Parma Medical CenterComment on above:Performed By: #### BNP, T7, CMP, TSH, LIPID #### [facility] [address] [address] [address] Tan Pinedaesterol in LDL [Mass/Vol]82.4 mg/dLTriHealth Bethesda North HospitalComment on above:Performed By: #### BNP, T7, CMP, TSH, LIPID #### [facility] [address] [address] [address] Tan Wells.total/Cholesterol in HDL [Mass ratio]2.4 {ratio} NormalMetrohealth Parma Medical CenterComment on above:Performed By: #### BNP, T7, CMP, TSH, LIPID #### [facility] [address] [place] [address] Dr. Tan Monroy NORMAL> or = 60 mg/dl - LOW CARDIOVASCULAR RISK <40 mg/dl - HIGH CARDIOVASCULAR RISKTriHealth Bethesda North HospitalComment on above:Performed By: #### BNP, T7, CMP, TSH, LIPID #### [facility] [address] [place] [address] Dr. Tan OliverosLDL CALC NORMALSEE St. Rita's HospitalComment on above:Result Comment: <100 mg/dl OPTIMAL 100 - 129 mg/dl NEAR OR ABOVE OPTIMAL 130 - 159 mg/dl BORDERLINE HIGH 160 - 189 mg/dl HIGH >190 mg/dl VERY HIGH Performed By: #### BNP, T7, CMP, TSH, LIPID #### [facility] [address] [address] [address] Tan OliverosTriglyceride [Mass/Vol]53 mg/dLNormal<=150[facility] Comment on above:Performed By: #### BNP, T7, CMP, TSH, LIPID #### [facility] [address] [address] [address] Tan OliverosVLDL CALC10.6 mg/dLNormalThe [facility] HospitalComment on above: Performed By: #### BNP, T7, CMP, TSH, LIPID #### [facility] [address] [address] [address] Tan OliverosPROCristi 14(COMP METB)on 32-85-9018Dkfhnzo [Mass/Vol]3.9 g/dLNormal 3.4-5.0The [facility] HospitalComment on above:Performed By: #### CK, HSTROPN, CMP, BNP #### [facility] [address] [address] [address] Tan OliverosAlbumin/Globulin [Mass ratio]1.2 {ratio}NormalThe [facility] HospitalComment on above:Performed By: #### CK, HSTROPN, CMP, BNP #### [facility] [address] [address] [address] Tan Patel [Catalytic activity/Vol]94 U/SKbgitv43-204Vck [facility] HospitalComment on above:Performed By: #### CK, HSTROPN, CMP, BNP #### [facility] [address] [address] [address] Tan Kay [Catalytic activity/Vol]17 U/JJkqnwo62-76Rvs [facility] HospitalComment on above:Performed By: #### CK, HSTROPN, CMP, BNP #### [facility] [address] [address] [address] Tan Montesinos gap [Moles/Vol]12.9 mmol/LNormalThe [facility] Comment on above:Performed By: #### CK, HSTROPN, CMP, BNP #### [facility] [address] [address] [address] Tan OliverosAST [Catalytic activity/Vol]20 U/CEctdok52-92Usf [facility] HospitalComment on above:Performed By: #### CK, HSTROPN, CMP, BNP #### [facility] [address] [address] [address] Tan OliverosBilirubin [Mass/Vol]0.4 mg/dLNormal0.2-1.0[facility] Comment on above:Performed By: #### CK, HSTROPN, CMP, BNP #### [facility] [address] [place] [address] Dr. Tan OliverosCalcium [Mass/Vol]9.1 mg/dLNormal8.5-10.1[facility] Comment on above:Performed By: #### CK, HSTROPN, CMP, BNP #### [facility] [address] [place] [address] Dr. Tan OliverosChloride [Moles/Vol]106 mmol/QXcqhrl56-473Olf [facility] Comment on above:Performed By: #### CK, HSTROPN, CMP, BNP #### [facility] [address] [place] [address] Dr. Tan OliverosCO2 [Moles/Vol]29.1 mmol/XEpypnl91.0-32.0[facility] Comment on above:Performed By: #### CK, HSTROPN, CMP, BNP #### [facility] [address] [place] [address] Dr. Tan OliverosCreatinine [Mass/Vol]1.98 mg/dLCritically high0.70-1.30The [facility] HospitalComment on above:Performed By: #### CK, HSTROPN, CMP, BNP #### [facility] [address] [place] [address] Dr. Maddox ChangEGFR-AF BSIJBWGS76 mL/min/1.26p7Bdgxnpmbcf low>=60The [facility] HospitalComment on above:Performed By: #### CK, HSTROPN, CMP, BNP #### [facility] [address] [place] [address] Dr. Tan SantosGFR-NON AF HMRIUPXY35 mL/min/1.07v8Keawsefgiq low>=60The [facility] HospitalComment on above:Performed By: #### CK, HSTROPN, CMP, BNP #### [facility] [address] [place] [address] Dr. Tan OliverosGlobulin (S) [Mass/Vol]3.3 g/dLNormalThe [facility] HospitalComment on above:Performed By: #### CK, HSTROPN, CMP, BNP #### [facility] [address] [place] [address] Dr. Tan OliverosGlucose [Mass/Vol]108 mg/dLCritically tlao75-383Emh [facility] HospitalComment on above:Performed By: #### CK, HSTROPN, CMP, BNP #### [facility] [address] [place] [address] Dr. Tan OliverosPotassium [Moles/Vol]4.0 mmol/LNormal3.5-5.1[facility] Comment on above:Performed By: #### CK, HSTROPN, CMP, BNP #### [facility] [address] [place] [address] Dr. Tan OliverosProtein [Mass/Vol]7.2 g/dLNormal6.4-8.2The [facility] Comment on above:Performed By: #### CK, HSTROPN, CMP, BNP #### [facility] [address] [place] [address] Dr. Tan OliverosSodium [Moles/Vol]144 mmol/VTbxuyo774-215Tvx [facility] Comment on above:Performed By: #### CK, HSTROPN, CMP, BNP #### [facility] [address] [place] [address] Dr. Tan OliverosUrea nitrogen [Mass/Vol]43.0 mg/dLCritically high7.0-18.0The [facility] HospitalComment on above:Performed By: #### CK, HSTROPN, CMP, BNP #### [facility] [address] [place] [address] Dr. Tan OliverosUrea nitrogen/Creatinine [Mass ratio]21.7 mg/mgNoPremier Health Miami Valley Hospital NorthComcorewell health greenville hospital on above:Performed By: #### CK, HSTROPN, CMP, BNP #### [facility] [address] [place] [address] Dr. Tan Mesa 29-55-1255QYE9.331 uIU/mLNormal0.358-3.740[facility] on above:Performed By: #### CK, HSTROPN, CMP, BNP #### [facility] [address] [place] [address] Dr. Tan OliverosVITAMIN D 25 OHon 55-76-9622GKO D 25-OH40.9 ng/mLNormalPeoples Hospital on above:Performed By: #### IRON, PSASC, VITAD #### [facility] [address] [place] [address] Dr. Tan Petit [facility] HospitalComcorewell health green[facility] hospital on above: Result Comment: <20 ng/mL Vit D deficient 20 - <30 ng/mL Vit D insufficient 30 - 100 ng/mL Vit D sufficient >100 ng/mL Potential ToxicityPerformed By: #### IRON, PSASC, VITAD #### [facility] [address] [place] [address] Dr. Tan OliverosURINALYSIS, REFLEX MICROSCOPICon 51-18-9130Jfmpsqgcl Ql (U) NegativeNegativeCleveland ClinicClarity (Unsp spec)CloudyAbnormalClearCleveland ClinicColor (U)Light OrangeAbnormalYellowCleveland ClinicGlucose Test strip (U) [Mass/Vol]4+AbnormalNegativeCleveland ClinicHemoglobin Ql (U)3+AbnormalNegative [facility]don[facility] ClinicHyaline casts (Urine sed) [#/Area]1-3 /LPFAbnormal0 /LPF [facility] ClinicKetones Ql (U)NegativeNegativeCleveland ClinicLeukocyte esterase Test strip Ql (U)NegativeNegativeBrown Memorial HospitalNitrite Ql (U)NegativeNegative [facility] Columbia ClinicpH (U)5.5 [pH]5.0 - 8.0West Columbia ClinicProtein (U) [Mass/Vol]1+ AbnormalNegativeBrown Memorial HospitalRBC LM.HPF (Urine sed) [#/Area]/[HPF]Abnormal0-3 /HPFSt. Charles Hospitalpecific gravity (U) [Rel density]1.0191.005 - 1.030 [facility] HospitalUrobilinogen Ql (U)NegativeNegativeBrown Memorial HospitalWBC LM.HPF (Urine sed) [#/Area]0-5 /HPF0-5 /HPFBrown Memorial HospitalURINE CULTUREon 03-17-2022 Bacteria identified Cx Nom (U)No growth (<1,000 CFU/ml)[facility] HospitalTYPE AND SCREEN,30 DAYon 54-88-1189LEDYRuakbhnxq ClinicHIstorical Ab Scr StatusNegative [facility] HospitalRh Nom (Bld)PositiveCleMercy Health St. Elizabeth Youngstown HospitalCT UROGRAM WO/W IVCONon 36-19-4794Xtppflckh ClinicDipstick and Microscopicon 54-61-0056Zafacmfutl Nom (U)CloudyCritically abnormalCleKettering Health TroyComment on above:Order Comment: Name Collection Type:: Clean-Voided MidstreamPerformed By: #### ADDONUAPLUS, CUU #### [facility] [address] [id number] USABacteria LM.HPF #/area (Urine sed)None SeenNormalNone Seen [facility] CenterComment on above:Order Comment: Name Collection Type:: Clean-Voided MidstreamPerformed By: #### ADDONUAPLUS, CUU #### [facility] [address] [place] [address] USABilirubin,UrineNegativeNormalNegativeMercy Health [facility] Regional Medical CenterComment on above:Order Comment: Name Collection Type:: Clean- Voided MidstreamPerformed By: #### ADDONUAPLUS, CUU #### [facility] [address] [place] [address] USAColor Nom (U)YellowNormalYellowMercy Health [facility] Regional Medical CenterComment on above:Order Comment: Name Collection Type:: Clean-Voided MidstreamPerformed By: #### ADDONUAPLUS, CUU #### [place] [address] USAGlucose Ql (U)NormalNormalNormSelect Medical Specialty Hospital - Southeast OhioComment on above:Order Comment: Name Collection Type:: Clean-Voided MidstreamPerformed By: #### ADDONUAPLUS, CUU #### [place] [address] USAHyaline Casts,Sdjoz9-3Zemphp1-6SipntrxzoMercy Health [facility] Regional Medical CenterComment on above:Order Comment: Name Collection Type:: Clean-Voided MidstreamResult Comment: PERFORMED BY: [place] [address] PATHOLOGIST BUSINESS INTELLIGENCE MANAGER LEONARD MCCLAIN M.D.Performed By: #### ADDONUAPLUS, CUU #### [place] [address] USAKetones Ql (U)NegativeNormalNegProMedica Flower HospitalComment on above:Order Comment: Name Collection Type:: Clean- Voided MidstreamPerformed By: #### ADDONUAPLUS, CUU #### [place] [address] USALeukocyte esterase Test strip Ql (U)4+HighNegative [facility] Medical CenterComment on above:Order Comment: Name Collection Type:: Clean-Voided MidstreamPerformed By: #### ADDONUAPLUS, CUU #### [place] [address] USANitrite,UrineNegativeNormmdNegProMedica Flower HospitalComment on above:Order Comment: Name Collection Type:: Clean- Voided MidstreamPerformed By: #### ADDONUAPLUS, CUU #### [place] [address] USAOccult Blood,Urine3+HighNegativeMercy Health [facility] Regional Medical CenterComment on above:Order Comment: Name Collection Type:: Clean-Voided MidstreamResult Comment: PERFORMED BY: [place] [address] PATHOLOGIST BUSINESS INTELLIGENCE MANAGER LEONARD MCCLAIN M.D.Performed By: #### JONATHAN, CUU #### [place] [address] USApH (U)7.0 [pH]Normal5.0-9.0[facility] Medical CenterComment on above:Order Comment: Name Collection Type:: Clean-Voided MidstreamPerformed By: #### ADDRICHYPLUS, CUU #### [place] [address] USAProtein mass conc (U)30 mg/dLHighNegativeMercy Health [facility] Regional Medical CenterComment on above:Order Comment: Name Collection Type:: Clean-Voided MidstreamPerformed By: #### ADDNOEL, CUU #### [place] [address] USARBC LM.HPF #/area (Urine sed)InnumerableHigh0-4FOhio Valley HospitalComment on above:Order Comment: Name Collection Type:: Clean-Voided MidstreamPerformed By: #### JONATHAN, CUU #### [place] [address] USASpecificy Edmonds,Urine1.047Xwvhtw3.001-1.030[facility] Medical CenterComment on above:Order Comment: Name Collection Type:: Clean-Voided MidstreamPerformed By: #### ADDONKAITLINPLUS, CUU #### [place] [address] USASquamous Epithelial Cell,UrineNone SeenNormal0-2FOhio Valley HospitalComment on above:Order Comment: Name Collection Type:: Clean-Voided MidstreamPerformed By: #### ADDONUAPLUS, CUU #### [place] [address] USAUrobilinogen,UrineNormalNormalNormalMercy Health [facility] Medical CenterComment on above:Order Comment: Name Collection Type:: Clean- Voided MidstreamPerformed By: #### JONATHAN, CUU #### [facility] [address] LM.HPF #/area (Urine sed)InnumerableWyoming General Hospital0-[address] [place], [place] [address]Comment on above:Order Comment: Name Collection Type:: Clean-Voided MidstreamPerformed By: #### JONATHAN, CUU #### [facility] [address] [id number] USALon 02-23-2019 Specimen: [id number] Received: 02/23/19 Status: MALCOLM Mendez Num: [id number] Spec Type: Cytology Subm Dr: Jian Rodriguez MD Tissues: A CYTOSLIDE (URINE) Procedures: Pap Stain/2 Patient Age/Sex Location Account Attending Physician Juan Jose Austin Sr 78/M AL[place]ANDRO [id number] Jian Rodriguez MD SPEC NUM: [id number] RECD: 02/23/19 STATUS: MALCOLM MENDEZ NUM: [id number] ALEKSANDR: 02/23/[address] [facility] [address]: Jian Rodriguez MD ENTERED: 02/23/[address] [facility] [address]: FARRAH TYPE: Cytology DEPT: CN ORDERED: Pap Stain/2 [...] examined. Microscopic examination supports the pathologic diagnosis. [id number] Specimen: [id number] Received: 02/23/19 Status: MALCOLM Mendez Num: [id number] Spec Type: Cytology Subm Dr: Jian Rodriguez MD Tissues: A CYTOSLIDE (URINE) Procedures: Pap Stain/2 Patient: Juan Jose Austin Shirley Sr [id number] (Continued) Signed (signature on file) Julio Cesar Carr MD 02/24/19 1700 [facility] HospitalUrine Cultureon [id number] identified Cx Nom (U)ORGANISM: Pseudomonas aeruginosa (O:PSEAER) Kyle Count >100,000 100,000 CFU/ML OTHER MIXED BACTERIAL [...] RESISTANT TO ALL B-LACTAM DRUGS. PERFORMED BY: [address] [address] PATHOLOGIST BUSINESS INTELLIGENCE MANAGER LEOANRD MCCLAIN M.D.[facility] City HospitalComment on above: Performed By: #### JAMAR CASTILLO #### [address] [address] [facility] Vital Signs Date TimeVital SignValuePerforming QdxecukwpLauiqpxd35-14-1299 08:47-0400Body bfseltoqyxn93.4 [degF]Harpreet Avalos PUBLIC SPEAKING PROFESSOR-ARBORICULTURE INSTRUCTOR Work Phone: [facility]08-04-2025 08:47-0400Diastolic blood limszglh58 mm[Hg]Harpreet Avalos PUBLIC SPEAKING PROFESSOR-ARBORICULTURE INSTRUCTOR Work Phone: [facility]08-04-2025 08:47-0400Heart rate 74 /minHarpreet Avalos PUBLIC SPEAKING PROFESSOR-ARBORICULTURE INSTRUCTOR Work Phone: [facility] [facility]08-04-2025 08:47-0400 Respiratory rate18 /minHarpreet Avalos PUBLIC SPEAKING PROFESSOR-ARBORICULTURE INSTRUCTOR Work Phone: [facility]08-04-2025 08:47-0400Systolic blood ilwownwb554 mm[Hg]Harpreet Avalos PUBLIC SPEAKING PROFESSOR-ARBORICULTURE INSTRUCTOR Work Phone: [facility]07-26-2025 10:04-0400Body oouxru590.6 cmBrblank Mary PUBLIC SPEAKING PROFESSOR-ARBORICULTURE INSTRUCTOR Work Phone: [facility] [employer] [id number] 10:04-0400Body mass index (BMI) [Ratio]27.98 kg/b2DmpvfhtChago Hernandez PUBLIC SPEAKING PROFESSOR-ARBORICULTURE INSTRUCTOR Work Phone: [facility]07-26-2025 10:04-0400Body otvend49.94 kgBrianna Dechristopher PUBLIC SPEAKING PROFESSOR-ARBORICULTURE INSTRUCTOR Work Phone: [facility] [employer] [id number] 10:04-0400Diastolic blood oxbkosjb62 mm[Hg]Chago Montillaer PUBLIC SPEAKING PROFESSOR-ARBORICULTURE INSTRUCTOR Work Phone: [facility]07-26-2025 10:04-0400Heart rate 71 /minChago Wuopher PUBLIC SPEAKING PROFESSOR-ARBORICULTURE INSTRUCTOR Work Phone: [facility]07-26-2025 10:04-1474YxO1% (BldA) [Mass fraction]98 %Chago Decistopher PUBLIC SPEAKING PROFESSOR-ARBORICULTURE INSTRUCTOR Work Phone: [facility]07-26-2025 10:04-0400Systolic blood atyctaqm316 mm[Hg]Chago Wuopher PUBLIC SPEAKING PROFESSOR-ARBORICULTURE INSTRUCTOR Work Phone: [facility] [employer] [phone] 15:01-0400Body ojwxmpdsbcm32.6 [degF]Harpreet Avalos PUBLIC SPEAKING PROFESSOR-ARBORICULTURE INSTRUCTOR Work Phone: [facility]07-21-2025 15:01-0400Diastolic blood esyzniyt19 mm[Hg]Harpreet Avalos PUBLIC SPEAKING PROFESSOR-ARBORICULTURE INSTRUCTOR Work Phone: [facility]07-21-2025 15:01-0400Heart rate 75 /minHarpreet Avalos PUBLIC SPEAKING PROFESSOR-ARBORICULTURE INSTRUCTOR Work Phone: [facility]07-21-2025 15:01-0400 Respiratory rate18 /minHarpreet Avalos PUBLIC SPEAKING PROFESSOR-ARBORICULTURE INSTRUCTOR Work Phone: [facility]07-21-2025 15:01-0400Systolic blood etmyxrfr581 mm[Hg]Harpreet Avalos PUBLIC SPEAKING PROFESSOR-ARBORICULTURE INSTRUCTOR Work Phone: [facility]01-10-2025 09:01-0500Body mass index (BMI) [Ratio]29.23 kg/a5QrppfGraeme Vazquez MD Work Phone: [facility]01-10-2025 09:01-0500Body temperature 97.7 [degF]Graeme Vazquez MD Work Phone: [facility]01-10-2025 09:01-0500Body pikfzc31.7 kgGraeme Vazquez MD Work Phone: [facility]01-10-2025 09:01-0500Diastolic blood jogzrecn56 mm[Hg]Graeme Vazquez MD Work Phone: [facility]01-10-2025 09:01-0500Heart rate63 /min Graeme Vazquez MD Work Phone: [facility]01-10-2025 09:01-0500Respiratory rate 18 /minGraeme Vazquez MD Work Phone: [facility]01-10-2025 09:01-2375VlG9% (BldA) [Mass fraction]98 %Graeme Vazquez MD Work Phone: [facility]01-10-2025 09:01-0500Systolic blood vcykipyo141 mm[Hg]Graeme Vazquez MD Work Phone: [facility]11-28-2024 20:54-0500Body temperature 98.01 [degF]Leni Santiago MD Work Phone: bon [facility]11-28-2024 20:54-0500Diastolic blood rjroghpm27 mm[Hg]Leni Santiago MD Work Phone: [facility]11-28-2024 20:54-0500Heart rate60 /Fawad Santiago MD Work Phone: [facility] [place] [address]-28-2024 20:54-0500 Respiratory rate18 /Fawad Santiago MD Work Phone: [facility]11-28-2024 20:54-1745YmG9% (BldA) [Mass fraction]98 %Leni Santiago MD Work Phone: [place] [address]-28-2024 20:54-0500Systolic blood mm[Hg]Leni Santiago MD Work Phone: bgerhard [facility]11-08-2024 09:22-0500Body vgopaw465 cmVbritany Vazquez MD Work Phone: [facility]11-08-2024 09:22-0500Body mass index (BMI) [Ratio]28.12 kg/n1OowopGraeme Vazquez MD Work Phone: [facility]11-08-2024 09:22-0500Body temperature 97.2 [degF]Graeme Vazquez MD Work Phone: [facility]11-08-2024 09:22-0500Body powbwn10.8 kgGraeme Vazquez MD Work Phone: [facility]11-08-2024 09:22-0500Diastolic blood msmoljds11 mm[Hg]Graeme Vazquez MD Work Phone: [facility]11-08-2024 09:22-0500Heart rate64 /min Graeme Vazquez MD Work Phone: [facility]11-08-2024 09:22-0500Respiratory rate 16 /minGraeme Vazquez MD Work Phone: [facility]11-08-2024 09:22-2167DyI7% (BldA) [Mass fraction]98 %Graeme Vazquez MD Work Phone: [facility]11-08-2024 09:22-0500Systolic blood fmyvecha334 mm[Hg]Graeme Vazquez MD Work Phone: [facility]08-05-2024 12:47-0400Body yuphwu115 cm Graeme Vazquez MD Work Phone: [facility] HospitalComment on above:verifed by 2 no shoes 05-18-2024 12:47-0400Body mass index (BMI) [Ratio]26.18 kg/r5VvferGraeme Vazquez MD Work Phone: [facility]08-05-2024 12:47-0400Body temperature 97.11 [degF]Graeme Vazquez MD Work Phone: [facility]08-05-2024 12:47-0400Body ttiwox40.7 kgGraeme Vazquez MD Work Phone: [facility]08-05-2024 12:47-0400Diastolic blood rtqmmyvp68 mm[Hg]Graeme Vazquez MD Work Phone: [facility]08-05-2024 12:47-0400Heart rate66 /min Graeme Vazquez MD Work Phone: [facility]08-05-2024 12:47-0400Respiratory rate 16 /minGraeme Vazquez MD Work Phone: [facility]08-05-2024 12:47-2184GtN8% (BldA) [Mass fraction]99 %Graeme Vazquez MD Work Phone: [facility]08-05-2024 12:47-0400Systolic blood iymwoxda627 mm[Hg]Graeme Vazquez MD Work Phone: [facility]06-09-2024 22:58-0400Diastolic blood ljscidfe17 mm[Hg][place] [facility]06-09-2024 22:58-0400Heart rate61 /minSkvng [facility]06-09-2024 22:58-0400Respiratory rate14 /minSkvng [facility]06-09-2024 22:58-8928SiA5% (BldA) [Mass fraction]96 %[place] [facility]06-09-2024 22:58-0400 Systolic blood kczbqqki804 mm[Hg][place] [facility]06-09-2024 17:55-0400Body mbaspwryfdd82.7 [degF][place] [facility] 03-22-2024 17:54-0400Body kjkieb63.97 kgChina Adam [facility] 12-20-2023 13:09-0500Body ffthia616.6 cmPatricia Conteh PUBLIC SPEAKING PROFESSOR.ARBORICULTURE INSTRUCTOR Work Phone: [facility]03-08-2024 13:09-0500Body temperature 97.2 [degF]Patricia Conteh PUBLIC SPEAKING PROFESSOR.ARBORICULTURE INSTRUCTOR Work Phone: [facility]03-08-2024 13:09-0500Body fxzerg87.1 kgPatricia Conteh PUBLIC SPEAKING PROFESSOR.ARBORICULTURE INSTRUCTOR Work Phone: [phone]03-08-2024 13:09-0500Diastolic blood mm[Hg]Patricia Conteh PUBLIC SPEAKING PROFESSOR.ARBORICULTURE INSTRUCTOR Work Phone: [phone])389-[address] [place], [place] [address]14203-08-2024 13:09-0500Heart rate66 /min Patricia Conteh PUBLIC SPEAKING PROFESSOR.ARBORICULTURE INSTRUCTOR Work Phone: [phone]03-08-2024 13:09-0500Respiratory rate 16 /minPatricia Conteh APRN.ARBORICULTURE INSTRUCTOR Work Phone: [phone])546-[address] [place], [place] 9614203-08-2024 13:09-7401MgG7% (BldA) [Mass fraction]97 %Patricia Conteh PUBLIC SPEAKING PROFESSOR.ARBORICULTURE INSTRUCTOR Work Phone: [facility]03-08-2024 13:09-0500Systolic blood wcsrpvyz555 mm[Hg]Patricia Conteh PUBLIC SPEAKING PROFESSOR.ARBORICULTURE INSTRUCTOR Work Phone: [phone]02-16-2024 12:51-0500Body nubbsz189.6 Vinod Vazquez MD Work Phone: [facility]02-16-2024 12:51-0500Body temperature 98.01 [degF]Graeme Vazquez MD Work Phone: [facility]02-16-2024 12:51-0500Body vwxyte75.9 kgGraeme Vazquez MD Work Phone: [facility]02-16-2024 12:51-0500Diastolic blood ptcivxev58 mm[Hg]Graeme Vazquez MD Work Phone: [facility]02-16-2024 12:51-0500Heart rate71 /min Graeme Vazquez MD Work Phone: [facility]02-16-2024 12:51-0500Respiratory rate 16 /minGraeme Vazquez MD Work Phone: [facility]02-16-2024 12:51-0673YfX4% (BldA) [Mass fraction]98 %Graeme Vazquez MD Work Phone: [facility]02-16-2024 12:51-0500Systolic blood mm[Hg]Graeme Vazquez MD Work Phone: [facility]12-07-2023 14:50-0500Diastolic blood epxgtqaa16 mm[Hg]Chair Winsome Work Phone: [facility]12-07-2023 14:50-0500Systolic blood dwagufvs819 mm[Hg]Chair Winsome Work Phone: [facility]11-16-2023 12:37-0500Body vderzc250.6 cmVbritany Vazquez MD Work Phone: [facility]11-16-2023 12:37-0500Body temperature 97.5 [degF]Graeme Vazquez MD Work Phone: [facility]11-16-2023 12:37-0500Body ylopxl75.75 kgGraeme Vazquez MD Work Phone: [place] [address]-16-2023 12:37-0500Diastolic blood pwlmrubj16 mm[Hg]Graeme Vazquez MD Work Phone: [facility]11-16-2023 12:37-0500Heart rate60 /min Graeme Vazquez MD Work Phone: [facility]11-16-2023 12:37-0500Respiratory rate 18 /minGraeme Vazquez MD Work Phone: [facility]11-16-2023 12:37-7060DqN2% (BldA) [Mass fraction]97 %Graeme Vazquez MD Work Phone: [facility]11-16-2023 12:37-0500Systolic blood ntnrdewg127 mm[Hg]Graeme Vazquez MD Work Phone: [facility]10-05-2023 13:14-0400Body dtrzio514.6 cmVbritany Vazquez MD Work Phone: [facility]10-05-2023 13:14-0400Body temperature 97.59 [degF]Graeme Vazquez MD Work Phone: [facility]10-05-2023 13:14-0400Body iozjoc54.74 kgGraeme Vazquez MD Work Phone: [facility]10-05-2023 13:14-0400Diastolic blood zvsejodg57 mm[Hg]Graeme Vazquez MD Work Phone: [facility]10-05-2023 13:14-0400Heart rate61 /min Graeme Vazquez MD Work Phone: [facility]10-05-2023 13:14-0400Respiratory rate 18 /minGraeme Vazquez MD Work Phone: [facility]10-05-2023 13:14-9528MiW4% (BldA) [Mass fraction]96 %Graeme Vazquez MD Work Phone: [facility]10-05-2023 13:14-0400Systolic blood mm[Hg]Graeme Vazquez MD Work Phone: [facility]09-14-2023 13:02-0400Body .6 cmPatricia Conteh APRN.CNP Work Phone: [facility]09-14-2023 13:02-0400Body temperature 97 [degF]Patricia Conteh PUBLIC SPEAKING PROFESSOR.ARBORICULTURE INSTRUCTOR Work Phone: [facility]09-14-2023 13:02-0400Body .19 kgPatricia Conteh PUBLIC SPEAKING PROFESSOR.ARBORICULTURE INSTRUCTOR Work Phone: [facility]09-14-2023 13:02-0400Diastolic blood omwzcvfp94 mm[Hg]Patricia Conteh PUBLIC SPEAKING PROFESSOR.ARBORICULTURE INSTRUCTOR Work Phone: [facility]09-14-2023 13:02-0400Heart rate61 /min Patricia Conteh PUBLIC SPEAKING PROFESSOR.ARBORICULTURE INSTRUCTOR Work Phone: [facility]09-14-2023 13:02-0400Respiratory rate 16 /minPatricia Conteh PUBLIC SPEAKING PROFESSOR.ARBORICULTURE INSTRUCTOR Work Phone: [facility]09-14-2023 13:02-9645PsP9% (BldA) [Mass fraction]99 %Patricia Conteh PUBLIC SPEAKING PROFESSOR.ARBORICULTURE INSTRUCTOR Work Phone: [facility]09-14-2023 13:02-0400Systolic blood udlqnwrh815 mm[Hg]Patricia Conteh PUBLIC SPEAKING PROFESSOR.ARBORICULTURE INSTRUCTOR Work Phone: [facility]08-24-2023 13:31-0400Body fcytzh502.6 cmVbritany Vazquez MD Work Phone: [facility]08-24-2023 13:31-0400Body temperature 97.81 [degF]Graeme Vazquez MD Work Phone: [facility]08-24-2023 13:31-0400Body uufzux22.47 kgGraeme Vazquez MD Work Phone: [facility]08-24-2023 13:31-0400Diastolic blood punmwbch40 mm[Hg]Graeme Vazquez MD Work Phone: [facility]08-24-2023 13:31-0400Heart rate60 /min Graeme Vazquez MD Work Phone: [facility]08-24-2023 13:31-0400Respiratory rate 16 /minGraeme Vazquez MD Work Phone: [facility]08-24-2023 13:31-0305UqT4% (BldA) [Mass fraction]99 %Graeme Vazquez MD Work Phone: [facility]08-24-2023 13:31-0400Systolic blood kpkurcab629 mm[Hg]Graeme Vazquez MD Work Phone: [facility]08-03-2023 13:02-0400Body wtufxn855.6 cmVbritany Vazquez MD Work Phone: [facility]08-03-2023 13:02-0400Body temperature 97.81 [degF]Graeme Vazquez MD Work Phone: [facility]08-03-2023 13:02-0400Body jupjcr23.65 kgGraeme Vazquez MD Work Phone: [facility]08-03-2023 13:02-0400Diastolic blood fqyajlcl10 mm[Hg]Graeme Vazquez MD Work Phone: [facility]08-03-2023 13:02-0400Heart rate62 /min Graeme Vazquez MD Work Phone: [facility]08-03-2023 13:02-0400Respiratory rate 18 /minGraeme Vazquez MD Work Phone: [facility]08-03-2023 13:02-3928EqN1% (BldA) [Mass fraction]100 %Graeme Vazquez MD Work Phone: [facility]08-03-2023 13:02-0400Systolic blood iuhnqxbb572 mm[Hg]Graeme Vazquez MD Work Phone: [facility]07-13-2023 12:54-0400Body .6 cmPatricia Conteh APRN.ARBORICULTURE INSTRUCTOR Work Phone: [facility]07-13-2023 12:54-0400Body temperature 97.39 [degF]Patricia Conteh APRN.ARBORICULTURE INSTRUCTOR Work Phone: [facility]07-13-2023 12:54-0400Body ailhol06.74 kgPatricia Conteh APRN.ARBORICULTURE INSTRUCTOR Work Phone: [facility]07-13-2023 12:54-0400Diastolic blood hvqwgeqg59 mm[Hg]Patricia Conteh PUBLIC SPEAKING PROFESSOR.ARBORICULTURE INSTRUCTOR Work Phone: [facility]07-13-2023 12:54-0400Heart rate66 /min Patricia Conteh APRN.ARBORICULTURE INSTRUCTOR Work Phone: [facility]07-13-2023 12:54-0400Respiratory rate 16 /minPatricia Conteh APRN.ARBORICULTURE INSTRUCTOR Work Phone: [facility]07-13-2023 12:54-5164TfM2% (BldA) [Mass fraction]97 %Patricia Conteh APRN.ARBORICULTURE INSTRUCTOR Work Phone: [facility]07-13-2023 12:54-0400Systolic blood ngbepghm966 mm[Hg]Patricia Conteh APRN.ARBORICULTURE INSTRUCTOR Work Phone: [facility]06-22-2023 10:25-0400Body eeebgj125.6 cmPatricia Conteh APRN.ARBORICULTURE INSTRUCTOR Work Phone: [facility]06-22-2023 10:25-0400Body temperature 97.7 [degF]Patricia Conteh APRN.ARBORICULTURE INSTRUCTOR Work Phone: [facility]06-22-2023 10:25-0400Body .29 kgPatricia Conteh APRN.ARBORICULTURE INSTRUCTOR Work Phone: [facility]06-22-2023 10:25-0400Diastolic blood nmecwuse11 mm[Hg]Patricia Conteh APRN.ARBORICULTURE INSTRUCTOR Work Phone: [facility]06-22-2023 10:25-0400Heart rate67 /min Patricia Conteh APRN.ARBORICULTURE INSTRUCTOR Work Phone: [facility]06-22-2023 10:25-0400Respiratory rate 16 /minPatricia Conteh APRN.ARBORICULTURE INSTRUCTOR Work Phone: [facility]06-22-2023 10:25-2632MiD8% (BldA) [Mass fraction]97 %Patricia Conteh PUBLIC SPEAKING PROFESSOR.ARBORICULTURE INSTRUCTOR Work Phone: [facility]06-22-2023 10:25-0400Systolic blood xqqlbesw151 mm[Hg]Patricia Conteh PUBLIC SPEAKING PROFESSOR.ARBORICULTURE INSTRUCTOR Work Phone: [facility]05-30-2023 10:00-0400Body nqcbny16.56 kgCamtwyla Nelson Other [place] [employer] Other 05-30-2023 10:00-0400Diastolic blood hnwiztjt82 mm[Hg] Shawn Nelson Other [place] [employer] Other 05-30-2023 10:00-0400Systolic blood qwpgyryo719 mm[Hg] Shawn Nelson Other [place] [employer] Other 04-20-2023 08:17-0400Body .6 Vinod Vazquez MD Work Phone: [facility]04-20-2023 08:17-0400Body temperature 97.5 [degF]Graeme Vazquez MD Work Phone: [facility]04-20-2023 08:17-0400Body cdbapz50.19 kgGraeme Vazquez MD Work Phone: [facility]04-20-2023 08:17-0400Diastolic blood mm[Hg]Graeme Vazquez MD Work Phone: [facility]04-20-2023 08:17-0400Heart rate59 /min Graeme Vazquez MD Work Phone: [facility]04-20-2023 08:17-0400Respiratory rate 16 /minGraeme Vazquez MD Work Phone: [facility]04-20-2023 08:17-2410VxW3% (BldA) [Mass fraction]97 %Graeme Vazquez MD Work Phone: [facility]04-20-2023 08:17-0400Systolic blood yzusvxee132 mm[Hg]Graeme Vazquez MD Work Phone: [facility]03-22-2023 14:58-0400Body goagzj200.6 cmVbirtany Vazquez MD Work Phone: [facility]03-22-2023 14:58-0400Body temperature 97.3 [degF]Graeme Vazquez MD Work Phone: [facility]03-22-2023 14:58-0400Body mjriqs08.2 kgGraeme Vazquez MD Work Phone: [facility]03-22-2023 14:58-0400Diastolic blood jdxsryfy18 mm[Hg]Graeme Vazquez MD Work Phone: [facility]03-22-2023 14:58-0400Heart rate63 /min Graeme Vazquez MD Work Phone: [facility]03-22-2023 14:58-0400Respiratory rate 16 /minGraeme Vazquez MD Work Phone: [facility]03-22-2023 14:58-6218GmD4% (BldA) [Mass fraction]97 %Graeme Vazquez MD Work Phone: [facility]03-22-2023 14:58-0400Systolic blood mm[Hg]Graeme Vazquez MD Work Phone: [place] [address]-22-2023 09:20-0500Blood Pressure LocationPaeliza RODRIGUEZ [facility]02-22-2023 09:20-0500Diastolic blood qxnfmkte23 mm[Hg]Jian RODRIGUEZ [facility]02-22-2023 09:20-0500Heart rate59 /minPaeliza RODRIGUEZ [facility]02-22-2023 09:20-0500Systolic blood pdcygnkc451 mm[Hg]Jian RODRIGUEZ [facility] [place] [address]-13-2023 08:40-0500Body uzndez895.6 Vinod Vazquez MD Work Phone: [place] [address]-13-2023 08:40-0500Body temperature 97.7 [degF]Graeme Vazquez MD Work Phone: [place] [address]-13-2023 08:40-0500Body jomvqj94.47 kgGraeme Vazquez MD Work Phone: [place] [address]-13-2023 08:40-0500Diastolic blood oxevfsbz48 mm[Hg]Graeme Vazquez MD Work Phone: [place] [address]-13-2023 08:40-0500Heart rate60 /min Graeme Vazquez MD Work Phone: [place] [address]-13-2023 08:40-0500Respiratory rate 16 /minGraeme Vazquez MD Work Phone: [place] [address]-13-2023 08:40-2430BhM9% (BldA) [Mass fraction]97 %Graeme Vazquez MD Work Phone: [place] [address]-13-2023 08:40-0500Systolic blood nqcqqanl185 mm[Hg]Graeme Vazquez MD Work Phone: [facility]11-30-2022 14:05-0500Body tedbfj926.6 Jen Saenz MD Work Phone: [facility]Fucqbh56-05-3176 14:05-0500Body vesecz22.93 kgNicholas Saenz MD Work Phone: [phone] EastHburfa71-53-0270 14:05-0500Diastolic blood jaqmimnt51 mm[Hg]Nicholas Saenz MD Work Phone: [phone] EastYyyghj73-09-6487 14:05-0500Heart rate79 /min Nicholas Saenz MD Work Phone: [facility] EastOmmstg59-29-7402 14:05-0500Systolic blood jrlvilpq206 mm[Hg]Nicholas Saenz MD Work Phone: [place] [address]-30-2022 10:56-0500Diastolic blood mdtwvojr87 mm[Hg]Pacc 4 Work Phone: [phone]11-30-2022 10:56-0500Systolic blood ijqcbigw778 mm[Hg]Pacc 4 Work Phone: [facility]11-30-2022 10:55-0500Body gledtq037.6 cmPacc 4 Work Phone: [phone]11-30-2022 10:55-0500Body temperature 98.29 [degF]Pacc 4 Work Phone: [phone] [address]-30-2022 10:55-0500Body cstmet14.93 kgPacc 4 Work Phone: [phone]11-30-2022 10:55-0500Heart rate66 /min Pacc 4 Work Phone: [phone]11-30-2022 10:55-1998LcB9% (BldA) [Mass fraction]96 %Pacc 4 Work Phone: [phone]05-26-2022 11:15-0400Body .65 kgDavid Komal Other [place] [employer] Other [phone] 12:37-0400Body .6 cmScristofer Perea MD Work Phone: [facility]05-23-2022 12:37-0400Body temperature 97.81 [degF]Soren Perea MD Work Phone: [facility]05-23-2022 12:37-0400Body xqhipc46.01 kgSiwally Perea MD Work Phone: [facility]05-23-2022 12:37-0400Diastolic blood zxhdiojn46 mm[Hg]Soren Perea MD Work Phone: [facility]05-23-2022 12:37-0400Heart rate56 /min Soren Perea MD Work Phone: [facility]05-23-2022 12:37-0400Respiratory rate 16 /minScristofer Perea MD Work Phone: [facility]05-23-2022 12:37-4852KiW5% (BldA) [Mass fraction]97 %Soren Perea MD Work Phone: [facility]05-23-2022 12:37-0400Systolic blood iwkpwoob718 mm[Hg]Soren Perea MD Work Phone: [facility]05-09-2022 12:37-0400Body .6 cmCroazon Maxwell PA-C Work Phone: [facility]05-09-2022 12:37-0400Body temperature 97.59 [degF]Corazon Maxwell PA-C Work Phone: [facility]05-09-2022 12:37-0400Body ujmdjt70.19 kgMintamara Maxwell PA-C Work Phone: [place] [address]-09-2022 12:37-0400Diastolic blood ncvbylfl77 mm[Hg]Corazon Beller PA-C Work Phone: [facility]05-09-2022 12:37-0400Heart rate67 /min Corazon Beller PA-C Work Phone: [facility]05-09-2022 12:37-0400Respiratory rate 18 /minMintamara Alissa PA-C Work Phone: [facility]05-09-2022 12:37-7346KgJ5% (BldA) [Mass fraction]100 %Corazon Beller PA-C Work Phone: [facility]05-09-2022 12:37-0400Systolic blood gizpqbvp985 mm[Hg]Corazon Beller PA-C Work Phone: [facility]05-02-2022 12:56-0400Body weclem073.6 cmScristofer Perea MD Work Phone: [facility]05-02-2022 12:56-0400Body temperature 97.39 [degF]Soren Perea MD Work Phone: [facility]05-02-2022 12:56-0400Body cygapj83.46 kgSiwally Perea MD Work Phone: [facility]05-02-2022 12:56-0400Diastolic blood mm[Hg]Soren Perea MD Work Phone: [facility]05-02-2022 12:56-0400Heart rate52 /min Soren Perea MD Work Phone: [facility]05-02-2022 12:56-0400Respiratory rate 18 /minScristofer Perea MD Work Phone: [facility]05-02-2022 12:56-4192JyG9% (BldA) [Mass fraction]99 %Soren Perea MD Work Phone: [place] [address]-02-2022 12:56-0400Systolic blood rdfiuahn144 mm[Hg]Soren Perea MD Work Phone: [facility]04-25-2022 12:40-0400Body urzxve511.6 cmScristofer Perea MD Work Phone: [facility]04-25-2022 12:40-0400Body temperature 97.59 [degF]Soren Perea MD Work Phone: [facility]04-25-2022 12:40-0400Body laymhr98.91 kgSiwally Perea MD Work Phone: [facility]04-25-2022 12:40-0400Diastolic blood mm[Hg]Soren Perea MD Work Phone: [facility]04-25-2022 12:40-0400Heart rate57 /min Soren Perea MD Work Phone: [facility]04-25-2022 12:40-0400Respiratory rate 18 /minScristofer Perea MD Work Phone: [facility]04-25-2022 12:40-0284NdO7% (BldA) [Mass fraction]100 %Soren Perea MD Work Phone: [facility]04-25-2022 12:40-0400Systolic blood zvekbczu228 mm[Hg]Soren Perea MD Work Phone: [facility]04-04-2022 12:35-0400Body .6 cmMintamara Maxwell PA-C Work Phone: [facility]04-04-2022 12:35-0400Body temperature 98.1 [degF]Corazon Maxwell PA-C Work Phone: [facility]04-04-2022 12:35-0400Body tcuvtw43.28 kgMintamara Maxwell PA-C Work Phone: [place] [address]-04-2022 12:35-0400Diastolic blood ihhxqttd02 mm[Hg]Corazon Beller PA-C Work Phone: [facility]04-04-2022 12:35-0400Heart rate63 /min Corazon Beller PA-C Work Phone: [facility]04-04-2022 12:35-0400Respiratory rate 16 /minMintamara Alissa PA-C Work Phone: [facility]04-04-2022 12:35-0494DoB3% (BldA) [Mass fraction]98 %Corazon Beller PA-C Work Phone: [facility]04-04-2022 12:35-0400Systolic blood dhyaycwq998 mm[Hg]Corazon Beller PA-C Work Phone: [facility]03-28-2022 09:09-0400Body hxxueq626.6 cmScristofer Perea MD Work Phone: [facility]03-28-2022 09:09-0400Body temperature 97.11 [degF]Soren Perea MD Work Phone: [facility]03-28-2022 09:09-0400Body rxdfbo55.55 kgSiwally Perea MD Work Phone: [facility]03-28-2022 09:09-0400Diastolic blood libyzkfz43 mm[Hg]Soren Perea MD Work Phone: [facility]03-28-2022 09:09-0400Heart rate62 /min Soren Perea MD Work Phone: [place] [address]-28-2022 09:09-0400Respiratory rate 18 /minScristofer Perea MD Work Phone: [facility]03-28-2022 09:09-1381JjT2% (BldA) [Mass fraction]98 %Soren Perea MD Work Phone: [place] 07696-28-2022 09:09-0400Systolic blood mm[Hg]Soren Perea MD Work Phone: [facility] Encounters Encounter DateEncounter TypeCare ProviderFacilityStart: 07-19-2025 End: 78-05-9546gnoxlxdtozXFJVAG [facility] Start: 06-30-2025 End: 28-51-8938qflakkxstjINIW [facility]: 05-17-2025 End: 86-18-0465Nzmwhb outpatient visit 15 minutesHarpreet Avalos PUBLIC SPEAKING PROFESSOR-ARBORICULTURE INSTRUCTOR Work Phone: [facility] Wound Care ClinicComment on above:Chest wall ulcer, 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-HCC) (Primary Dx); Infection of pacemaker pocket, initial encounter; Open wound of left chest wall, initial encounterStart: 05-17-2025 End: 58-74-1102znbxcvcohbUBMAURWGI L BALLOhio [facility] Surgical Hospital Start: 05-14-2025 End: 31-41-6773hmmpzfpherHCLJSMercy Health Anderson Hospitaltart: 05-08-2025 End: 73-42-4837Ztkdkk follow up visit related to original Yesenia Hernandez APRN-ARBORICULTURE INSTRUCTOR Work Phone: [facility] CardiologyComment on above:Open wound of left chest wall, initial encounter (Primary Dx); Pacemaker complications, initial encounterStart: 03-10-1254bxwhmrglcfEPFOWLXKarely HERNANDEZMedina Hospitaltart: 05-05-2025 End: 10-54-7349Aspln abstractingScanning Provider ExternalProMedica Physicians CardiologyStart: 05-05-2025 End: 06-40-4769Uoiqccrgb encounterMegan Gigi RNProMedica Physicians Cardiology Comment on above:Extraction siteReminderStart: 05-04-2025 End: 12-56-0598Ttceomloetsdu procedureHarpreet Avalos PUBLIC SPEAKING PROFESSOR-ARBORICULTURE INSTRUCTOR Work Phone: [facility] - Wound Care OutpatientStart: 05-03-2025 End: 30-74-8466Hnsxpg outpatient new 30 minutesSallyjohnny Russo Jaxon PUBLIC SPEAKING PROFESSOR-ARBORICULTURE INSTRUCTOR Work Phone: [facility] - Wound Care ClinicComment on above:Open wound of left chest wall, initial encounter (Primary Dx); 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; Infection of pacemaker pocket, initial encounterStart: 05-03-2025 End: 17-60-2479ynjicqcnmlZTAYMRTDU L BALLOhio Valley Surgical Hospital Start: 04-22-2025 End: 43-14-5174Cptozsqxf encounterGraeme Vazquez MD Work Phone: Hematology/OncologyComment on above:Patient Update Start: 04-19-2025 End: 12-19-4204Sarqpusjse and management of inpatientDOAultman Alliance Community Hospitaltart: 04-19-2025 End: 64-99-7017Msvcoudmm department patient visitSTriHealthtart: 98-05-9291qsjkkmapluZESSE [facility] AmbulatoryStart: 03-16-2025 End: 81-82-3002noztbizyjbHCIACommunity Memorial Hospitaltart: 02-23-2025 End: 93-11-5492bwegkmydxjDVJZCommunity Memorial Hospitaltart: 02-17-2025 End: 38-40-4883ovxwiicdvzBVLAVQG [facility] Centertart: 31-74-1904pxvkrzhorfNXOLUniversity Hospitals TriPoint Medical Centertart: 02-02-2025 End: 91-60-6185cmlcgiqozlDGJQUniversity Hospitals TriPoint Medical Centertart: 01-21-2025 End: 66-21-2676egwfcxtqujGUOQCommunity Memorial Hospitaltart: 01-20-2025 End: 53-53-3822ukyiwsuzddIOSUOhioHealth Nelsonville Health Centertart: 01-20-2025 End: 84-84-9311Xekilxhed for other preprocedural examinationPAUL [facility] HospitalStart: 01-20-2025 End: 87-26-2648Ossqoutdlx hospital visit by Radu Stubbs CNP Work Phone: [facility] LABStart: 01-20-2025 End: 82-41-1388abakmffvdoLAOACommunity Memorial Hospitaltart: 01-19-2025 End: 20-62-5564cjfzrzcrocKLQXCommunity Memorial Hospitaltart: 01-08-2025 End: 64-77-4319opvbwcrftzWEWJWG SONIAGrand [facility] Start: 01-04-2025 End: 53-94-1117ihjsxwpquiJUHQNTC L ANJELERMmarymount hospitaleli [facility] HospitalStart: 01-04-2025 End: 19-20-3654Eifegkrdqu hospital visit by Radu Stubbs CNP Work Phone: [facility] LABComment on above:AbscessStart: 10-23-2024 End: 39-42-1840Keokoq outpatient visit 25 minutesGraeme Vazquez MD Work Phone: Hematology/OncologyComment on above:Malignant 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) (Primary Dx); Malignant neoplasm of urinary bladder, unspecified site (HCC); CKD (chronic kidney disease), stage V (HCC); Disorder of thyroid; Malignant neoplasm of ureteric orifice (HCC)Start: 10-23-2024 End: 85-93-3409ipgxdvrdozVYJZM ABHYANKARFacility:[facility] Foundationtart: 10-21-2024 End: 90-12-4556nlvukvpvosGCZQU W MIGHTNationwide Children'S Hospital HospitalStart: 10-21-2024 End: 12-58-7836Ivaxfshwjj hospital visit by Radu Stubbs CNP Work Phone: mthz LaboratoryComment on above:Congenital hypothyroidism; DyslipidemiaStart: 10-16-2024 End: 87-83-5672kmvviyuqjtNUYBC W MIGHTFacility:[facility] HospitalStart: 10-16-2024 End: 19-06-7245Wtisgnvdjj hospital visit by physicianArrival Time Radiology Work Phone: Radiology Pet CTComment on above:Malignant 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) [C67.8]Start: 09-29-2024 End: 74-67-6763rtiqglbqynELBDBrecksville VA / Crille Hospitaltart: 09-16-2024 End: 51-23-9948cusakpadzeNPVXQZTSalem Regional Medical Centertart: 09-10-2024 End: 27-83-1397Eawartbpj department patient visitLeni Santiago MD Work Phone: [facility] EDComment on above:Chest discomfort (Primary Dx)Start: 08-25-2024 End: 40-74-5783tpuqkbggvgJWRUBrecksville VA / Crille Hospitaltart: 08-21-2024 End: 95-17-6453Qqgent outpatient visit 25 minutesGraeme Vazquez MD Work Phone: Hematology/OncologyComment on above:Malignant 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) (Primary Dx); CKD (chronic kidney disease), stage V (HCC); Malignant neoplasm of urinary bladder, unspecified site (HCC)Start: 08-21-2024 End: 63-66-4908pcdjhxsqfrJSVAZ ABHYANKARFacility:[facility] Foundationtart: 06-29-2024 End: 94-44-7410azyjjjftkwEMZAH ABHYANKARFacility:[facility] Foundationtart: 06-29-2024 End: 98-68-7178Sxlsxovnpc hospital visit by physicianArrival Time Radiology Work Phone: Radiology Pet CTComment on above:Malignant 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) [C67.8]Start: 05-18-2024 End: 54-42-1543Cyaqnp outpatient visit 40 minutesGraeme Vazquez MD Work Phone: Hematology/OncologyComment on above:Malignant 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) (Primary Dx); CKD (chronic kidney disease), stage V (HCC); Malignant neoplasm of urinary bladder, unspecified site (HCC); Disorder of thyroid; Abnormal blood chemistryStart: 05-18-2024 End: 35-34-0205lpdsqgrgkoMGHFIRC M HOYFacility:[facility] Foundationtart: 94-11-9183Yttyarqts encounterTifhailee Mckeon RN Work Phone: Hematology/OncologyComment on above:Care Coordination (Diarrhea >1 month)Start: 03-22-2024 End: 11-04-2947Xzotghxem department patient visitSean [facility] EDComment on above:Elevated troponin (Primary Dx)Start: 03-20-2024 Telephone encounterGraeme Vazquez MD Work Phone: Cancer Appts MCComment on above:Appointment Cancelled (Diarrhea/)Start: 96-13-8603G-mail encounter from Atilio Emmanuel APRN.CNP Work Phone: [facility] CL[facility]ICStart: 46-96-6701Ztfdimn encounter Serina Emmanuel APRN.CNP Work Phone: [facility] VIRTUAL CLINICComment on above:Actionable FindingStart: 14-91-2636Vdgijqyyn encounterGraeme Vazquez MD Work Phone: Cancer Appts MCComment on above:No ShowStart: 01-24-2024 End: 57-00-7575Jzqyoffcju hospital visit by physicianArrival Time Radiology Work Phone: Radiology Pet CTComment on above:Malignant neoplasm of urinary bladder, unspecified site (HCC) [C67.9]Start: 12-20-2023 End: 02-78-5388nkihbmepkoVjqmoRao Conteh APRN.CNP Work Phone: Hematology/OncologyComment on above:Malignant 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) (Primary Dx); CKD (chronic kidney disease), stage V (HCC); Abnormal weight loss; Malignant neoplasm of urinary bladder, unspecified site (HCC)Start: 12-20-2023 End: 10-43-2597Tyctfmz encounter French Conteh APRN.CNP Work Phone: SANDUSKYStart: 11-29-2023 End: 68-69-0651eufyoxfvrbXlfka [address] [place] Work Phone: Hematology/OncologyComment on above:Malignant 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) (Primary Dx); Malignant neoplasm of right kidney, except renal pelvis (HCC); Malignant neoplasm of ureter, unspecified laterality (HCC)Start: 11-29-2023 End: 77-49-1425Meeeti outpatient visit 40 minutesGraeme Vazquez MD Work Phone: Hematology/OncologyComment on above:Malignant 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) (Primary Dx); CKD (chronic kidney disease), stage V (HCC); Disorder of thyroid; Malaise and fatigueStart: 99-52-2575Fdpvjnyzy encounterMargot So RN Work Phone: Hematology/OncologyComment on above:Care Coordination (Follow Up Appointment)Start: 52-51-9019Zpymxpnhk encounterGraeme Vazquez MD Work Phone: Cancer Appts MCStart: 09-19-2023 End: 79-78-4920ewzihsanpeWxwpi [address] [place] Work Phone: Hematology/OncologyComment on above:Malignant 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) (Primary Dx); Malignant neoplasm of right kidney, except renal pelvis (HCC); Malignant neoplasm of ureter, unspecified laterality (HCC)Start: 08-29-2023 End: 41-64-2505Krtmmu outpatient visit 25 minutesGraeme Vazquez MD Work Phone: Hematology/OncologyComment on above:Malignant neoplasm of overlapping sites of bladder (HCC) (Primary Dx); Malignant neoplasm of ureter, unspecified laterality (HCC); Malaise and fatigueStart: 08-23-2023 End: 79-45-1730Uphwnwygca hospital visit by physicianArrival Time Radiology Work Phone: Radiology Pet CTComment on above:Malignant neoplasm of overlapping sites of bladder (HCC) [C67.8]Start: 1939Oywzvodsa encounter Margot So RN Work Phone: Hematology/OncologyComment on above:Care Coordination (Sore Throat)Start: 07-18-2023 End: 89-63-0707sxveoagjvvQvqcy [address] [email or web address] Work Phone: Hematology/OncologyComment on above:Malignant neoplasm of overlapping sites of bladder (HCC) (Primary Dx); Malignant neoplasm of right kidney, except renal pelvis (HCC); Malignant neoplasm of ureter, unspecified laterality (HCC)Start: 07-18-2023 End: 22-81-9326Zyajii outpatient visit 25 minutesGraeme Vazquez MD Work Phone: Hematology/OncologyComment on above:Malignant neoplasm of overlapping sites of bladder (HCC) (Primary Dx)Start: 06-27-2023 End: 47-54-4353gdztutiybbKczeu 13 [employer] Work Phone: Hematology/OncologyComment on above:Malignant neoplasm of overlapping sites of bladder (HCC) (Primary Dx); Malignant neoplasm of right kidney, except renal pelvis (HCC); Malignant neoplasm of ureter, unspecified laterality (HCC)Malignant neoplasm of overlapping sites of bladder (HCC) (Primary Dx); Malaise and fatigueStart: 06-27-2023 End: 58-26-5871Sjcsgpc encounter French Conteh APRN.CNP Work Phone: SANDUSKYStart: 06-18-2023 End: 18-26-0204avnkbfqgjbZqxkxj J Stein MD Work Phone: UrologyComment on above:Urothelial cancer (HCC) (Primary Dx)Start: 06-18-2023 End: 27-83-1548Fpqsdgefdxpp consultation with patientGalen Bhatt MD Work Phone: [facility] MAINStart: 06-06-2023 End: 10-07-1086aqzvjejvkpArdug [address] [employer] Work Phone: Hematology/OncologyComment on above:Malignant neoplasm of overlapping sites of bladder (HCC) (Primary Dx); Malignant neoplasm of right kidney, except renal pelvis (HCC); Malignant neoplasm of ureter, unspecified laterality (HCC)Start: 06-06-2023 End: 96-85-0277Jxkgel outpatient visit 25 minutesGraeme Vazquez MD Work Phone: Hematology/OncologyComment on above:Malignant neoplasm of overlapping sites of bladder (HCC) (Primary Dx); Malignant neoplasm of ureter, unspecified laterality (HCC); Disorder of thyroidStart: 05-31-2023 End: 42-22-0541LupprlShufod J Stein MD Work Phone: UrologyComment on above:Refill RequestMalignant neoplasm of overlapping sites of bladder (HCC) [C67.8]Start: 05-16-2023 End: 17-75-3445vyxsdymxtkDnbbv Anthony Fam Work Phone: Hematology/OncologyComment on above:Malignant neoplasm of overlapping sites of bladder (HCC) (Primary Dx); Malignant neoplasm of right kidney, except renal pelvis (HCC); Malignant neoplasm of ureter, unspecified laterality (HCC)Start: 05-16-2023 End: 11-23-3380Defwpi outpatient visit 25 minutesGraeme Vazquez MD Work Phone: Hematology/OncologyComment on above:Malignant neoplasm of overlapping sites of bladder (HCC) (Primary Dx)Start: 05-07-2023 End: 27-67-7919nkitbhqvabYkmfgu J Stein MD Work Phone: UrologyComment on above:Malignant neoplasm of urothelium (HCC) (Primary Dx)Start: 05-07-2023 End: 89-26-4054Mzynkfgnyouo consultation with Harrison Bhatt MD Work Phone: [facility] MAINStart: 04-25-2023 End: 43-39-9491Nfdicd Eun Sneed MD Work Phone: Hematology/OncologyComment on above:Dry mouth (Primary Dx); Other general symptoms and signsMalignant neoplasm of overlapping sites of bladder (HCC) (Primary Dx)Malignant neoplasm of overlapping sites of bladder (HCC) (Primary Dx); Malignant neoplasm of right kidney, except renal pelvis (HCC); Malignant neoplasm of ureter, unspecified laterality (HCC)Start: 04-04-2023 End: 83-79-1335xcsoptbxmyVdlhx Martinez APRN.CNP Work Phone: Hematology/OncologyComment on above:Malignant neoplasm of overlapping sites of bladder (HCC) (Primary Dx)Malignant neoplasm of overlapping sites of bladder (HCC) (Primary Dx); Malignant neoplasm of right kidney, except renal pelvis (HCC); Malignant neoplasm of ureter, unspecified laterality (HCC)Start: 04-04-2023 End: 46-20-3229Pdwiswg encounter procedurePatricia Conteh APRN.CNP Work Phone: SANDUSKYStart: 03-12-2023 End: 56-74-9120gwoudgvoqoCvexwxe Ditty Other [place] [employer] Other Start: 43-59-9859Fpsqtvs encounter procedureShawn NietoG GastroenterologyStart: 03-10-2023 End: 09-20-5546gggfherkzeHP DI OCHOA .Facility:N2Rrzri: 13-87-9637Rzdqwjesn encounterGraeme Vazquez MD Work Phone: Cancer Appts MCComment on above:Return Call Request; Call ptStart: 01-31-2023 End: 76-39-7095mjmrigxnbbPygkj [address] [place] Work Phone: Hematology/OncologyComment on above:Malignant neoplasm of overlapping sites of bladder (HCC) (Primary Dx); Malignant neoplasm of right kidney, except renal pelvis (HCC); Malignant neoplasm of ureter, unspecified laterality (HCC)Start: 01-31-2023 End: 30-77-1304Aywfdc outpatient visit 25 minutesGraeme Vazquez MD Work Phone: Hematology/OncologyComment on above:Malignant neoplasm of overlapping sites of bladder (HCC) (Primary Dx)Start: 01-23-2023 End: 55-43-3572Ihgsuzecwk hospital visit by physicianArrival Time Radiology Work Phone: Radiology Pet CTComment on above:Malignant neoplasm of overlapping sites of bladder (HCC) [C67.8]Start: 01-11-2023 End: 48-90-2001yntjzmjzvlBZ SERGIO SNEED .Facility:P8Bqjxz: 48-37-0463Okgmwlqig encounterMargot So RN Work Phone: Hematology/OncologyComment on above:Care Coordination (C1D1 Post Treatment Call)Start: 01-02-2023 End: 85-21-3039syrbweeqxyGsxvo [address] [place] Work Phone: Hematology/OncologyComment on above:Malignant neoplasm of overlapping sites of bladder (HCC) (Primary Dx); Malignant neoplasm of right kidney, except renal pelvis (HCC); Malignant neoplasm of ureter, unspecified laterality (HCC)Start: 01-02-2023 End: 82-85-1262Cssskt outpatient visit 25 minutesGraeme Vazquez MD Work Phone: Hematology/OncologyComment on above:Malignant neoplasm of overlapping sites of bladder (HCC) (Primary Dx); Malignant neoplasm of ureter, unspecified laterality (HCC)Start: 12-31-2022 ambulatoryMargot So RN Work Phone: Hematology/OncologyComment on above:Non-Chemotherapy Treatment (Pembrolizumab)Start: 68-24-2723Qpadryqdi Jesi Alarcon MD Work Phone: [facility] [place] By [facility]ovenant HealthComment on above:Patient UpdateStart: 12-18-2022 End: 72-71-3493udllisqbikKmuognt R WATERSFacility:EU [place]kyStart: 12-17-2022 Telephone encounterLauren Mckeon RN Work Phone: Hematology/OncologyComment on above:Care Coordination (Reschedule appointment)Start: 12-08-2022 End: 52-11-8140mvqpbdvhckIX SERGIO SNEED .Facility:I3Euqxt: 12-05-2022 End: 87-62-3032ygktzoqgqxAtcfvzw R WATERSFacility:EU [place]kyStart: 12-05-2022 End: 09-91-6320Ipuvqtb encounter procedureJian RODRIGUEZ [facility] [place] Start: 11-26-2022 End: 30-33-8805qflnvpoqywQhwpt Abhyankar MD Work Phone: Hematology/OncologyComment on above:Malignant neoplasm of ureter, unspecified laterality (HCC) (Primary Dx)Start: 11-26-2022 End: 24-77-5851Xqduztg encounter Félix Vazquez MD Work Phone: SANDUSKYStart: 11-20-2022 End: 27-70-7029ubcbqkrqzgFzzozf J Stein MD Work Phone: UrologyComment on above: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, unspecified laterality (HCC) (Primary Dx)Start: 11-20-2022 End: 77-58-7749Lwbfejenoouv consultation with Harrison Bhatt MD Work Phone: [facility] MAINStart: 11-09-2022 End: 20-40-2712timysopgeeXE DOUGLAS HOY .Facility:K9Nzpel: 10-10-2022 End: 31-35-1161ijymfyfhwqEkvhewa Ditty Other [place] [employer] Other Start: 03-49-2743Termdnwaf encounterCamerodonn ChuayFPG GastroenterologyStart: 09-26-2022 End: 83-44-5502kauqukytwnYF SERGIO SNEED .Facility:P0Fnswr: 09-12-2022 End: 96-66-4362Iphouus encounter Ang Saenz MD Work Phone: UrologyComment on above:Urothelial carcinoma (HCC) (Primary Dx)Start: 09-12-2022 End: 44-87-0570wxuvdqotjyVkja Main 4 Work Phone: Pre AnesthesiaComment on above:Pre-op evaluation (Primary Dx); Hypertensive heart disease with heart failure (HCC); Gastro-esophageal reflux disease without esophagitis; Ulcerative pancolitis (HCC); Stage 3 chronic kidney disease, unspecified whether stage 3a or 3b CKD (HCC); 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, unspecified laterality (HCC)Start: 09-12-2022 End: 91-88-2987Jzkbxpdcl to [place] [address] Work Phone: [facility] MAINStart: 09-12-2022 End: 32-24-3074Xauvdnvzgmlne examination [place] [address] Work Phone: [facility] AnesthesiaStart: 07-30-2022 End: 07-44-2326ugupbdaskkDvqlazk Dijuancarlos Other [place] [employer] Other Start: 35-17-3952Tpcbpgmag encounterCamtwyla NelsonFPG GastroenterologyStart: 92-96-2019chltdaxziaOkqdib L Smith RNGlickman Urological &Start: 03-26-2022 End: 66-22-5894ofiukcliweNowqn O'Donohue PA-C Work Phone: UrologyComment on above:Urothelial carcinoma (HCC) (Primary Dx)Start: 03-26-2022 End: 93-49-6362Qmdmuaxbnzus consultation with Lottie Tejada PA-C Work Phone: [facility] MAINStart: 59-35-9077xwbpqdgyeq Claire Sal[facility] &Start: 03-13-2022 End: 17-98-2007bhmlutvljyWxofqx J Stein MD Work Phone: UrologyComment on above: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, unspecified laterality (HCC) (Primary Dx); Acute cystitis without hematuriaStart: 03-13-2022 End: 27-04-1577Jjcvfgyioysu consultation with Harrison Bhatt MD Work Phone: [facility] MAINStart: 03-08-2022 End: 90-69-8769srqdohwgupFgvml Komal Other [place] [employer] Other Start: 82-06-0966Jokpgh outpatient visit 25 minutes Augusto SanchezG GastroenterologyStart: 03-05-2022 End: 27-17-6073azzmojxhscNqexlesfp Kunte MD Work Phone: Hematology/OncologyComment on above:Malignant neoplasm of ureter, unspecified laterality (HCC) (Primary Dx)Start: 03-05-2022 End: 88-38-2398Vizwgea encounter procedureScristofer Perea MD Work Phone: SANDUSKYStart: 02-19-2022 End: 36-36-6349dequmjokqiZhgueYoni Maxwell PA-C Work Phone: Hematology/OncologyComment on above:Malignant neoplasm of ureter, unspecified laterality (HCC) (Primary Dx)Start: 02-19-2022 End: 69-91-1840Pzupmwp encounter procedureCorazon Maxwell PA-C Work Phone: SANDUSKYStart: 02-12-2022 End: 56-58-4049jadwavndltDdcvpogsp Kunte MD Work Phone: Hematology/OncologyComment on above:Malignant neoplasm of ureter, unspecified laterality (HCC) (Primary Dx)Start: 02-12-2022 End: 30-36-8756Wecebwi encounter procedureScristofer Perea MD Work Phone: SANDUSKYStart: 02-05-2022 End: 29-13-9500effkewcummQuoaactgq Kunte MD Work Phone: Hematology/OncologyComment on above:Malignant neoplasm of ureter, unspecified laterality (HCC) (Primary Dx)Start: 02-05-2022 End: 42-92-7616Yospyie encounter procedureScristofer Perea MD Work Phone: SANDUSKYStart: 01-22-2022 End: 39-13-3709igywlqgszaAtfuy Alek Fam Work Phone: Hematology/OncologyComment on above:Malignant neoplasm of ureter, unspecified laterality (HCC) (Primary Dx)Start: 01-15-2022 End: 43-29-0134antowvtivxBiidu M Musser PA-C Work Phone: Hematology/OncologyComment on above:Malignant neoplasm of ureter, unspecified laterality (HCC) (Primary Dx)Start: 01-15-2022 End: 59-58-5480Ilduokf encounter procedureCorazon Maxwell PA-C Work Phone: SANDUSKYStart: 01-08-2022 End: 11-69-8403tecpdjbzsjNdmvwnhuk Kunte MD Work Phone: Hematology/OncologyComment on above:Malignant neoplasm of ureter, unspecified laterality (HCC) (Primary Dx)Start: 01-08-2022 End: 45-43-2862Tmgvdzv encounter procedureScristofer Perea MD Work Phone: SANDUSKYStart: 07-08-2020 End: 15-60-3673Jdkptbwyjb hospital visit by physicianFormerly [facility] Work Phone: RadiologyComment on above: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, unspecified laterality (HCC) [C64.9]Start: 04-29-2018 End: 34-08-5598Gwkxyat encounterDEFAULT PHYSICIANFacility:[facility] FACILITYtart: 04-21-2018 End: 08-90-9004Ohdzpyw encounterDEFAULT PHYSICIANFacility:[facility] Procedures DateProcedureProcedure DetailPerforming ClinicianStart: 63-35-0814LEHEPKN Nikhil Avalos APRN-ABIOLA Work Phone: Start: 11-48-8310Kfylyn-up visitFollow-upADELINA FREEMANWELLStart: 25-21-5068Vczmsn-up visitFollow-Lisa WUOPHERStart: 21-32-7090Cgtyqgwg screenDOUGLAS HOYComment on above:Performed By: #### WCSUP #### [facility] ([facility]) [address] [place] [address] VIRStart: 63-32-8409Yoozu metabolic panel calcium totalPaul Lily FOUNTAIN Work Phone: Start: 43-30-4919Ijjmx panelBrett W Might PUBLIC SPEAKING PROFESSOR - ARBORICULTURE INSTRUCTOR Work Phone: Start: 10-21-2024 End: 42-56-6786Jhnzv metabolic panel calcium totalBrett W Might PUBLIC SPEAKING PROFESSOR - ARBORICULTURE INSTRUCTOR Work Phone: Start: 23-79-9561Ad abdomen & pelvis w/contrast Haim Vazquez MD Work Phone: Start: 94-63-8081Ic thorax w/contrast Haim Vazquez MD Work Phone: Start: 92-85-9248Mjsub count complete auto&auto difrntl wbcGraeme Vazquez MD Work Phone: Start: 89-93-8532Fmlllsnrld exam chest 2 Marilynn Santiago MD Work Phone: Start: 37-88-3090Lt abdomen & pelvis w/contrast Haim Vazquez MD Work Phone: Start: 19-14-8625Zv thorax w/contrast Haim Vazquez MD Work Phone: Start: 61-74-8447Uiyem of troponin quantitativeSean Ray MDStart: 67-99-5983Lc thorax w/contrast materialSean Ray MDStart: 03-22-2024 Radiologic exam chest single viewSean Ray MDStart: 28-63-7413Wkdeg metabolic panel calcium totalSean Ray MDStart: 97-43-6500Riz routine ecg w/least 12 lds w/i&rSean Ray MDStart: 02-05-0359Iq abdomen & pelvis w/contrast materialHolly Wero PUBLIC SPEAKING PROFESSOR.ARBORICULTURE INSTRUCTOR Work Phone: Start: 88-84-3975Nw thorax w/contrast materialHolly Wero PUBLIC SPEAKING PROFESSOR.ARBORICULTURE INSTRUCTOR Work Phone: Start: 75-48-1674Mpwok count complete auto&auto difrntl wbcHolly Wero PUBLIC SPEAKING PROFESSOR.ARBORICULTURE INSTRUCTOR Work Phone: Start: 08-24-3002Yk abdomen & pelvis w/contrast materialGraeme Vazquez MD Work Phone: Start: 11-00-9949Io thorax w/contrast Haim Vazquez MD Work Phone: Start: 69-24-5867Eo abdomen & pelvis w/contrast materialGraeme Vazquez MD Work Phone: Start: 49-99-5252Hw thorax w/contrast materialGraeme Vazquez MD Work Phone: Start: 40-97-0995Xg thorax w/o contrast materialHolly Wero PUBLIC SPEAKING PROFESSOR.ARBORICULTURE INSTRUCTOR Work Phone: Start: 78-16-1964NSS screeningDR DI OCHOA .Comment on above:Performed By: #### IRON, PSASC, VITAD #### [facility] [address] [place] [address] Dr. Maddox [facility] HospitalStart: 59-09-2600Kqwzu dip stick/tablet reagent auto microscopy Bulk Order ProviderStart: 60-59-1244Ggdvnxqd screenGalen Bhatt MD Work Phone: Start: 43-82-6128Cdvrogx bacterial quanttative colony count urineRobann marie Bhatt MD Work Phone: Start: 88-80-1740Gn abdomen & pelvis w/o contrst 1/> body reRobert Benjamín Bhatt MD Work Phone: Start: 51-36-7390Urnktmfnpxv removal of ureteric stent Jian RODRIGUEZ Start: 50-86-6102Yafuwo biopsyJian RODRIGUEZ Comment on above:Right ureteroscopy, Right renal Wash for cytology, holmium laser of right renal tumor, Right stent placementStart: 14-13-1868Kalrpvsxwlba of mitomycin C into bladderPatrick RODRIGUEZ Comment on above:03/05/2019 , 03/30/2019Start: 02-05-2019 Transurethral resection of bladder neoplasmJian RODRIGUEZ Start: 90-12-6182UwbtzketjjrblbdmcmJgxzhlf [employer] Comldqq on above:left sideStart: 29-67-9161Cxmvfd of bladderJian Referly Comment on above:05/15/2018 * Cysto, bladder bx, fulguration, left ureteral dilation, left ureteroscopy, ureteral biopsy, left pyeloscopy, right ureteroscopy, left stent placement with clot evacuation. 04/05/2016* cystoscopy, bilateral rg, bladder biopsy, fulguration.Start: 83-34-9376NkeoalnddaBqsrumh WATERS Comuqwj on above:05/10/2016 * Cysto, rigid ureteral dilation, ureteroscopy, pyeloscopy, basket extraction of renal stone, left stent placementStart: 12-68-9691Ggjhvh biopsyJian Referly Comrueb on above:01/10/2012 * Cysto, left stent change, ureteroscopy, renal biopsy x 3Start: 34-60-0983Bayuyduqznxy of BCG into the RoseApplied [employer] Comkcrc on above:BCG # 6 09/18/10 BCG #3 02/18/2012 BCG #3 12/09/2012 BCG #2 12/16/2017Start: 83-35-1189Hbloqgp of stentJian Referly Comzlxe on above:left side, 08/30/2010, 05/29/2016Start: 91-73-8857Alrfsncwhd and transurethral resection of bladder tumorJian RODRIGUEZ Comffle on above:08/10/2010 * Cysto, TURBT/TURP/left ureteroscopy, left stent placementStart: 18-93-4329SafallokguFxolrwl WATERS Comment on above:07/21/2010, 11/20/2010, 02/19/2011, 05/29/2011, 09/11/2011, 11/27/2011, 04/25/2012, 08/04/2012, 10/21/2012, 07/20/2013, 01/18/2014, 11/23/2014, 12/05/2015, 11/27/2016, 06/04/2017, 11/19/2017, 03/11/2018, 09/23/2018, 12/31/2017Decompression of median nerveWebrazzi Dilation of urethraWebrazzi Comkflj on above:12/09/2012 * cysto/UD with pelaez soundsHernia repairWebrazzi Lumbar spinal fusionWebrazzi Transurethral prostatectomyWebrazzi Comment on above:08/10/2010 * turp 12/27/2011 * cystoscopy, trev rg, ureteroscopy, bladder bx, TURP and left stent placement Plan of Treatment DateCare ActivityDetailAuthorStart: 91-94-3180EAcZ,Tdap and Td Vaccines (3 - Td or Tdap)DTaP,Tdap and Td Vaccines (3 - Td or Tdap)[facility] SystemStart: 95-51-4689DEqD/Tdap/Td vaccine (2 - Tdap)DTaP/Tdap/Td vaccine (2 - Tdap)[facility]ENTERStart: 70-48-1200Irfee microalbumin profileCleuc health Clinic Start: 54-43-1629Ajorkyly ScreeningDiabetes ScreeningCleuc health ClinicStart: 30-18-2587Wbczqeir ScreeningDiabetes ScreeningCleuc health ClinicStart: 10-16-2027 Diabetes ScreeningDiabetes ScreeningCleuc health ClinicStart: 97-49-6779Xhcmvwju ScreeningDiabetes ScreeningCleuc health ClinicStart: 41-04-4881Zvqjdaco Screening Diabetes ScreeningCleuc health ClinicStart: 88-86-9710Oypwsrdo ScreeningDiabetes ScreeningSt. Charles Hospitaltart: 03-59-7963Yyitkoan ScreeningDiabetes Screening [facility]: 31-48-5848Parmeooi ScreeningDiabetes ScreeningSt. Charles Hospitaltart: 31-16-5811Iqcqcjqu ScreeningDiabetes ScreeningBrown Memorial Hospital Start: 68-76-2646Eapyjlgv ScreeningDiabetes ScreeningSt. Charles Hospitaltart: 24-85-4962Skdppncp ScreeningDiabetes ScreeningSt. Charles Hospitaltart: 11-02-2026 Diabetes ScreeningDiabetes ScreeningSt. Charles Hospitaltart: 32-30-4443Dwtnggkv ScreeningDiabetes ScreeningSt. Charles Hospitaltart: 96-12-6289Olipmkky Screening Diabetes ScreeningSt. Charles Hospitaltart: 02-52-6892Mrhtcdcd ScreeningDiabetes ScreeningSt. Charles Hospitaltart: 13-61-7678Pnjouyes ScreeningDiabetes Screening St[facility]: 44-99-0913Lagdfxds ScreeningDiabetes ScreeningSt. Charles Hospitaltart: 92-73-4381LLJBCSGR SCREENDIABETES SCREENSt. Charles Hospitaltart: 36-43-2352GKZZMCMO SCREENDIABETES SCREENSt. Charles Hospitaltart: 96-96-9806Jzqldud ScreeningTobacco ScreeningKettering Health Troyca [facility] SystemStart: 66-04-1113Wloakqe ScreeningTobacco ScreeningCone Health Alamance Regionaltart: 82-88-7565DSUWJEOQ SCREENDIABETES SCREENSt. Charles Hospitaltart: 19-04-4476GHEHCLXD SCREENDIABETES SCREENSt. Charles Hospitaltart: 79-27-6082LWOLKHOC SCREENDIABETES SCREENSt. Charles Hospitaltart: 61-18-7135Kjnzogjmfq ScreenDepression ScreenBon Secours Blanch[facility]uffton HospitalStart: 38-09-0161VDHVZXYJ SCREENDIABETES SCREENSt. Charles Hospitaltart: 80-63-3260IEYMMVPV SCREENDIABETES SCREENSt. Charles Hospitaltart: 11-02-2025 End: 05-96-9083Yfrvgrl encounter cyychthzh02/20/2026 8:40 AM EST Office Visit [facility] [address] [place] [phone] Might, Marilu W, PUBLIC SPEAKING PROFESSOR - ARBORICULTURE INSTRUCTOR [address] [place] [place] [address] AWV and [facility] TiffinComment on above:AWV and 6 monthStart: 32-46-4459Bzaiwh Wellness Visit (Medicare)Annual Wellness Visit (Medicare)Bon OpTrip [facility] HospitalStart: 92-24-3133MGYID-19 Vaccine ()COVID-19 Vaccine ( season)Bon [facility] CenterHelidyne [facility] HospitalComment on above:Postponed from 06/14/2024 (Patient Refused)Start: 06-86-9683Diynzsbtr vaccinationBon [facility] CenterHelidyne [facility] HospitalComment on above: Postponed from 05/14/2024 (Patient Refused)Postponed from 05/14/2025 (Patient Refused)Start: 50-06-0929Tkfpq panelLipidsBon [facility] CenterStart: 12-07-0531KGJUWAIG SCREENDIABETES SCREENCleuc health ClinicStart: 06-14-2025 Influenza vaccinationSt. Charles Hospitaltart: 05-31-2025 End: 84-37-0808Xxzrdbc encounter wxfhnyvdj64/18/2025 8:00 AM EDT Office Visit [address] [phone] Harpreet Avalos PUBLIC SPEAKING PROFESSOR-ARBORICULTURE INSTRUCTOR [address] [place] [address] [facility] Center Hospitaltart: 05-17-2025 End: 41-71-8997Gempdvd encounter rwemcubcx72/04/2025 8:30 AM EDT Office Visit [address] [phone] Harpreet Avalos, PUBLIC SPEAKING PROFESSOR-ARBORICULTURE INSTRUCTOR [address] [facility] [place] [address] Medical Center Hospitaltart: 05-08-2025 End: 97-49-7696Luiorpm encounter vmsxercph32/26/2025 10:30 AM EDT Office Visit [facility] [address] [place] [phone] Chago Hernandez, PUBLIC SPEAKING PROFESSOR-ARBORICULTURE INSTRUCTOR [address] [place] [address] [facility] Start: 04-30-2025 End: 35-14-6417Cpsyze-up rehnohqtg73/18/2025 9:40 AM EDT Visit (SP) Office Hematology/Oncology [address] [place], [place] [phone] Graeme Vazquez MD [address] [place] [address] 6 month follow up after ct and labHematology/OncologyComment on above:6 month follow up after ct and labStart: 04-27-2025 End: 46-19-0269Xgsqtkf encounter /15/2025 8:40 AM EDT Office Visit [facility] [address] [place] [phone] Marilu Roach, PUBLIC SPEAKING PROFESSOR - ARBORICULTURE INSTRUCTOR [address] [place] [address] 6 [facility] TiffinComment on above:6 monthsStart: 04-23-2025 End: 91-22-0272Fhyffnj encounter folawzsph38/11/2025 7:45 AM EDT Appointment Radiology Pet CT [address] [place] [address] Ct CAP with contrast and labRadiology Pet CTComment on above:Ct CAP with contrast and lab Start: 04-22-2025 End: 61-86-7386YUM W Auto Differential panel - BloodCOMPLETE BLOOD COUNT AND DIFFERENTIAL Lab Routine Malignant neoplasm of overlapping sites of bladder (HCC) Malignant neoplasm of urinary bladder, unspecified site (HCC) CKD (chronic kidney disease), stage V (HCC) Expected: 04/22/2025 (Approximate), Expires: 10/23/2025[place] ClinicComment on above:Expected: 04/22/2025 (Approximate), Expires: 10/23/2025Start: 04-22-2025 End: 89-98-5522Wuckhllrewsik metabolic 2000 panel - Serum or PlasmaCOMPREHENSIVE METABOLIC PANEL Lab Routine Malignant neoplasm of overlapping sites of bladder (HCC) Malignant neoplasm of urinary bladder, unspecified site (HCC) CKD (chronic kidney disease), stage V (HCC) Expected: 04/22/2025 (Approximate), Expires: 10/23/2025[place] ClinicComment on above:Expected: 04/22/2025 (Approximate), Expires: 10/23/2025Start: 04-22-2025 End: 92-61-0470AJ Abdomen and Pelvis W contrast IVCT ABD/PEL W IVCON Radiology Routine Malignant neoplasm of overlapping sites of bladder (HCC) Malignant neoplasm of urinary bladder, unspecified site (HCC) CKD (chronic kidney disease), stage V (HCC)Malignant neoplasm of ureteric orifice (HCC) Expected: 04/22/2025 (Approximate), Expires: 11/22/2025[facility] Work Phone: Comment on above:Expected: 04/22/2025 (Approximate), Expires: 11/22/2025Start: 04-22-2025 End: 02-46-8338DA Chest W contrast IVCT CHEST W IVCON Radiology Routine Malignant neoplasm of overlapping sites of bladder (HCC) Malignant neoplasm of urinary bladder, unspecified site (HCC) CKD (chronic kidney disease), stage V (HCC) Malignant neoplasm of ureteric orifice (HCC) Expected: 04/22/2025 (Approximate), Expires: 11/22/2025[place] ClinicComment on above:Expected: 04/22/2025 (Approximate), Expires: 11/22/2025Start: 50-69-5261Azuxubvybn Screen Depression ScreenBon [facility] CenterStart: 83-93-0493Qyycbjpaglv Syncytial Virus (RSV) or age 60 yrs+ (1 - 1-dose 75+ series)Respiratory Syncytial Virus (RSV) or age 60 yrs+ (1 - 1-dose 75+ series)Bon [facility] Medical CenterComment on above:Postponed from 2014 (Patient Refused)Start: 19-34-5867Mqgoeosk vaccine (2 of 2)Shingles vaccine (2 of 2)Bon [facility] Medical CenterComment on above:Postponed from 10/07/2023 (Patient Refused)Start: 04-22-2025 End: 99-27-0737CUV W/REFLEX FT4TSH W/REFLEX FT4 Lab Routine Disorder of thyroid Expected: 04/22/2025 (Approximate), Expires: 07/22/2025[place] ClinicComment on above:Expected: 04/22/2025 (Approximate), Expires: 07/22/2025Start: 34-18-2184BHJSNGKK SCREENDIABETES SCREENSt. Charles Hospitaltart: 03-05-2025 DIABETES SCREENDIABETES SCREENSt. Charles Hospitaltart: 52-96-2215GZDWJLHN SCREEN DIABETES SCREENSt. Charles Hospitaltart: 32-76-9871TTPOCDMX SCREENDIABETES SCREEN [facility] ClinicStart: 09-16-7158ZKKKPBVT SCREENDIABETES SCREENBrown Memorial Hospital Start: 92-24-2275FUSEAZOS SCREENDIABETES SCREENSt. Charles Hospitaltart: 01-15-2025 DIABETES SCREENDIABETES SCREENSt. Charles Hospitaltart: 22-41-4240FRGDRDKC SCREEN DIABETES SCREENSt. Charles Hospitaltart: 10-27-2024 End: 36-04-6690Cofpkae encounter /14/2025 9:00 AM EST Office Visit [facility] [address] [place] [phone] Marilu Roach, PUBLIC SPEAKING PROFESSOR - ARBORICULTURE INSTRUCTOR [address] [place] [address] 6 mos w/Labs awvMsumma health Primary Care TiffinComment on above:6 mos w/Labs awvStart: 10-23-2024 End: 43-64-2637Mjmkbo-up /10/2025 9:40 AM EST Visit (SP) Office Hematology/Oncology [address] [place] [address] [address] [place], [place] [phone] Graeme Vazquez MD [address] [place] [address] 9 week follow up for ct and lab reviewHematology/Oncology Comment on above:9 week follow up for ct and lab reviewStart: 10-16-2024 End: 49-74-5151PJD W Auto Differential panel - BloodCOMPLETE BLOOD COUNT AND DIFFERENTIAL Lab Routine Malignant neoplasm of overlapping sites of bladder (HCC) Expected: 10/16/2024 (Approximate), Expires: 08/21/2025[facility] Comment on above:Expected: 10/16/2024 (Approximate), Expires: 08/21/2025Start: 10-16-2024 End: 52-33-8443Xzovenolxacpz metabolic 2000 panel - Serum or PlasmaCOMPREHENSIVE METABOLIC PANEL Lab Routine Malignant 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) Expected: 10/16/2024 (Approximate), Expires: 08/21/2025[facility] Comment on above:Expected: 10/16/2024 (Approximate), Expires: 08/21/2025Start: 10-16-2024 End: 82-20-5829MG Abdomen and Pelvis W contrast IVCT ABD/PEL W IVCON Radiology Routine Malignant neoplasm of overlapping sites of bladder (HCC) Expected: 10/16/2024 (Approximate), Expires: 09/20/2025[facility] Work Phone: Comment on above:Expected: 10/16/2024 (Approximate), Expires: 09/20/2025Start: 10-16-2024 End: 63-01-2482JG Chest W contrast IVCT CHEST W IVCON Radiology Routine Malignant neoplasm of overlapping sites of bladder (HCC) Expected: 10/16/2024 (Approximate), Expires: 09/20/2025[facility] EastComment on above:Expected: 10/16/2024 (Approximate), Expires: 09/20/2025Start: 10-16-2024 End: 00-41-7546Lpvxyvb encounter epgoneuvr15/03/2025 7:45 AM EST Appointment Radiology Pet CT [address] [place] [address] CAP with contrast and labRadiology Pet CTComment on above:[address] CAP with contrast and labStart: 56-63-8258Rsxbnqx Directive DiscussionAdvance Directive DiscussionCleveland ClinicStart: 07-06-2024 End: 63-36-1174Lautur-up encounterHematology/OncologyComment on above:follow up and chemotx KeytrudaStart: 07-06-2024 End: 39-76-0252Qaftqcy encounter nbpdfgmod90/23/2024 8:45 AM EDT Office Visit [facility] [address] [place] [address] follow up and chemotx KeytrudaNortFresenius Medical Care at [facility] of Jackson LaboratoryComment on above:follow up and chemotx KeytrudaStart: 06-29-2024 End: 61-13-3569BUW W Auto Differential panel - BloodCOMPLETE BLOOD COUNT AND DIFFERENTIAL Lab Routine 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), 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, unspecified site (HCC) Disorder of thyroid Abnormal blood chemistry Expected: 06/29/2024 (Approximate), Expires: 09/28/2024[facility] ClinicComment on above:Expected: 06/29/2024 (Approximate), Expires: 09/28/2024Start: 06-29-2024 End: 12-94-7384Ahkepkssfdjus metabolic 2000 panel - Serum or PlasmaCOMPREHENSIVE METABOLIC PANEL Lab Routine 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), 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, unspecified site (HCC) Disorder of thyroid Abnormal blood chemistry Expected: 06/29/2024 (Approximate), Expires: 09/28/2024[facility] ClinicComment on above:Expected: 06/29/2024 (Approximate), Expires: 09/28/2024Start: 06-29-2024 End: 53-14-9038Pwdxkedz [Mass/volume] in Serum or PlasmaCORTISOL, SERUM Lab Routine Malignant 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 ki dney disease), 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, unspecified site (HCC) Disorderof thyroid Abnormal blood chemistry Expected: 06/29/2024 (Approximate), Expires: 09/28/2024[facility] ClinicComment on above:Expected: 06/29/2024 (Approximate), Expires: 09/28/2024Start: 06-29-2024 End: 70-68-8426IW Abdomen and Pelvis W contrast IVCT ABD/PEL W IVCON Radiology Routine 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), 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, unspecified site (HCC)Disorder of thyroid Abnormal blood chemistry Expected: 06/29/2024 (Approximate), Expires: 06/17/2025[facility] Work Phone: Comment on above:Expected: 06/29/2024 (Approximate), Expires: 06/17/2025Start: 06-29-2024 End: 22-68-0587CQ Chest W contrast IVCT CHEST W IVCON Radiology Routine 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), 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, unspecified site (HCC) Disorder of thyroid Abnormal blood chemistry Expected: 06/29/2024 (Approximate), Expires: 06/17/2025[facility] ClinicComment on above:Expected: 06/29/2024 (Approximate), Expires: 06/17/2025Start: 06-29-2024 End: 47-11-5370Obijtvmoqa A1c in BloodHEMOGLOBIN A1C Lab Routine 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), 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, unspecified site (HCC) Disorder of thyroid Abnormal blood chemistry Expected: 06/29/2024 (Approximate), Expires: 09/28/2024[facility] ClinicComment on above:Expected: 06/29/2024 (Approximate), Expires: 09/28/2024Start: 06-29-2024 End: 27-03-1842Fvruajacjht [Units/volume] in Serum or PlasmaTHYROID STIMULATING HORMONE Lab Routine 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), 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, unspecified site (HCC) Disorder of thyroid Abnormal blood chemistry Expected: 06/29/2024 (Approximate), Expires: 09/28/2024[facility] ClinicComment on above: Expected: 06/29/2024 (Approximate), Expires: 09/28/2024Start: 06-29-2024 End: 13-32-0909Oudoyed encounter mraodzwrd32/16/2024 8:45 AM EDT Appointment Radiology Pet CT [address] [place] [address] [place] [address] ct cap Radiology Pet CTComment on above:ct capStart: 77-18-6712BMKGG-19 Vaccine ( season)COVID-19 Vaccine ()[facility] Start: 29-01-7609CTCDO-19 Vaccine ()COVID-19 Vaccine ( season)[facility] SystemStart: 02-92-2820Mtigg-19 Vaccine ()Covid-19 Vaccine ()[facility]: 14-57-3359Nnjwp-19 Vaccine ()Covid-19 Vaccine ()[facility]: 51-19-1288Gmmdzcgju vaccinationBrown Memorial Hospital Start: 89-11-9450Jvkadnsjn vaccinationSTONESPRINGS HOSPITAL CENTERStart: 04-22-2024 End: 60-47-5491Wslufqi encounter nkrfuqrde36/10/2024 2:00 PM EDT Office Visit [facility] [address] [place] [phone] Marilu Roach, PUBLIC SPEAKING PROFESSOR - ARBORICULTURE INSTRUCTOR [address] [place] [address] establish care- okay per Bladimir [facility] TiffinComment on above:establish care- okay per mariluStart: 04-21-2024 End: 37-54-7424Jlfdfeh encounter onsfxppnx37/09/2024 12:30 PM EDT Office Visit [facility] Part of [address] [place] [phone] Jenni De La Rosa, PUBLIC SPEAKING PROFESSOR - ARBORICULTURE INSTRUCTOR [address] [facility] [address] [place] [address] [facility] Part of [facility] HospitalComment on above:gastritisStart: 03-22-2024 Annual Wellness Visit (Medicare)Annual Wellness Visit (Medicare)EWA MENDEZMARCIN HOLZER HOSPITALStart: 03-20-2024 End: 52-98-8515Evasme-up encounterHematology/OncologyComment on above:follow up and chemotx KeytrudaStart: 03-20-2024 End: 42-64-8804Rzfzcsi encounter /07/2024 8:30 AM EDT Office Visit [facility] [address] [place] [address] [place] [address] Labs This Day Per [facility] Staff MessageNortFresenius Medical Care at [facility] LaboratoryComment on above:Labs This Day Per [facility] Staff Message Start: 02-05-2024 End: 95-35-0866dtqbezvbzk36/24/2024 9:15 AM EDT [facility] Center Hematology/Oncology [address] [place] [address] chemotx KeytrudaHematology/OncologyComment on above:chemotx KeytrudaStart: 02-05-2024 End: 87-45-2597Dlrbdk-up brqeckrpb65/24/2024 9:00 AM EDT Visit (SP) Office Hematology/Oncology [address] [facility] [place], [place] [phone] Graeme Vazquez MD [address] [place] [address] 6 week follow up w/ possible KeytrudaHematology/Oncology Comment on above:6 week follow up w/ possible KeytrudaStart: 12-24-2023 End: 45-94-2295JQX W Auto Differential panel - BloodCBC + DIFF Lab Routine 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), stage V (HCC) Abnormal weight loss Malignant neoplasm of urinary bladder, unspecified site (HCC) Expected: 12/24/2023, Expires: 03/24/2024 [facility] Work Phone: Comment on above:Expected: 12/24/2023, Expires: 03/24/2024Start: 12-24-2023 End: 02-00-1677Ujjrbxpikxvzo metabolic 2000 panel - Serum or PlasmaCOMP METABOLIC PANEL Lab Routine 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), stage V (HCC) Abnormal weight loss Malignant neoplasm of urinary bladder, unspecified site (HCC) Expected: 12/24/2023, Expires: 03/24/2024[facility] Work Phone: Comment on above:Expected: 12/24/2023, Expires: 03/24/2024Start: 33-10-0735Cvrlfpd Directive DiscussionAdvance Directive DiscussionCleGreen Cross Hospitaltart: 18-80-2148Ddxzhgqogh Health ScreeningBehavioral Health ScreeningSt. Charles Hospitaltart: 70-25-2619Vfrbmomvqs Assessment Depression AssessmentSt. Charles Hospitaltart: 43-24-7317Mpkbgylvwbdpum of varicella zoster vaccineZoster (Shingles) Vaccine (2 of 2)[facility] SystemStart: 60-02-4180Kniajlsq vaccine (2 of 2)Shingles vaccine (2 of 2)[facility] CENTERStart: 54-68-0191Iamvaorn Vaccine (2 of 2)Shingrix Vaccine (2 of 2)[facility]: 08-22-2023 End: 26-41-8018Wy abdomen & pelvis w/contrast materialCT ABD/PEL W IVCON Radiology Routine Malignant neoplasm of overlapping sites of bladder (HCC) Expected: 08/22/2023 (Approximate), Expires: 08/16/2024[facility] Work Phone: Comment on above:Expected: 08/22/2023 (Approximate), Expires: 08/16/2024Start: 08-22-2023 End: 59-50-1123YP CHEST W IVCONCT CHEST W IVCON Radiology Routine Malignant neoplasm of overlapping sites of bladder (HCC) Expected: 08/22/2023 (Approximate), Expires: 08/16/2024[facility] Work Phone: Comment on above:Expected: 08/22/2023 (Approximate), Expires: 08/16/2024Start: 07-19-2023 End: 51-70-6571BVS W Auto Differential panel - BloodCBC + DIFF Lab Routine Malignant neoplasm of overlapping sites of bladder (HCC) Malaise and fatigue Expected: 07/19/2023, Expires: 09/18/2023[facility] Work Phone: Comment on above:Expected: 07/19/2023, Expires: 09/18/2023Start: 07-19-2023 End: 21-30-3025Gzsrhimkorfgh metabolic 2000 panel - Serum or PlasmaCOMP METABOLIC PANEL Lab Routine Malignant neoplasm of overlapping sites of bladder (HCC) Malaise and fatigue Expected: 07/19/2023, Expires: 09/18/2023[facility] Work Phone: Comment on above:Expected: 07/19/2023, Expires: 09/18/2023Start: 07-19-2023 End: 76-82-5187Kcowpaleank [Units/volume] in Serum or PlasmaTSH BLD Lab Routine Malignant neoplasm of overlapping sites of bladder (HCC) Malaise and fatigue Exp ected: 07/19/2023, Expires: 09/18/2023[facility] Work Phone: Comment on above:Expected: 07/19/2023, Expires: 09/18/2023Start: 35-59-9131WTHDP-19 Vaccine ( season)COVID-19 Vaccine ( season)[facility] CENTERStart: 82-67-9399Pyvzt-19 Vaccine ( season)Covid-19 Vaccine ( season)[facility]: 62-03-4269Pboiazpwy vaccinationSt. Charles Hospitaltart: 04-25-2023 End: 48-64-0651Ieigkwvuf (T4) free [Mass/volume] in Serum or PlasmaSamaritan North Health Center Work Phone: Comment on above:Expected: 04/25/2023, Expires: 06/25/2023Start: 04-25-2023 End: 86-09-8233Muywqvrjtdrlhmgn (T3) [Mass/volume] in Serum or PlasmaSamaritan North Health Center Work Phone: Comment on above:Expected: 04/25/2023, Expires: 06/25/2023Start: 12-19-2022 End: 38-48-2963Hvxkd function 2000 panel - Serum or PlasmaRENAL FUNCTION PANEL Lab Routine CELSO (acute kidney injury) (HCC) Expected: 12/19/2022, Expires: [facility] Work Phone: Comment on above:Expected: 12/19/2022, Expires: 02/18/2023Start: 63-50-3639BXXZDAW DIRECTIVE DISCUSSIONADVANCE DIRECTIVE DISCUSSIONSt. Charles Hospitaltart: 05-71-0193RDNEKANLAK ASSESSMENTDEPRESSION ASSESSMENTSt. 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, unspecified laterality (HCC) Expected: 03/13/2022, Expires: 03/13/2023[facility] Work Phone: Comment on above:Expected: 03/13/2022, Expires: 03/13/2023Start: 02-19-2022 End: 87-18-0599IWD W Auto Differential panel - BloodCBC + DIFF Lab Routine Malignant neoplasm of ureter, unspecified laterality (HCC) Expected: 02/19/2022, Expires: 04/21/2022[facility] Work Phone: Comment on above:Expected: 02/19/2022, Expires: 04/21/2022tart: 02-19-2022 End: 75-58-1645Yifucrhidzcnz metabolic 2000 panel - Serum or PlasmaCOMP METABOLIC PANEL Lab Routine Malignant neoplasm of ureter, unspecified laterality (HCC) Expected: 02/19/2022, Expires: 04/21/2022[facility] Work Phone: Comment on above:Expected: 02/19/2022, Expires: 2Start: 01-22-2022 End: 73-52-2041DZT W Auto Differential panel - BloodCBC + DIFF Lab Routine Malignant neoplasm of ureter, unspecified laterality (HCC) Expected: 01/22/2022, Expires: 03/24/2022[facility] Work Phone: Comment on above:Expected: 01/22/2022, Expires: 03/24/2022tart: 01-22-2022 End: 65-32-1137Zavmekiynlytt metabolic 2000 panel - Serum or PlasmaCOMP METABOLIC PANEL Lab Routine Malignant neoplasm of ureter, unspecified laterality (HCC) Expected: 01/22/2022, Expires: 03/24/2022[facility] Work Phone: Comment on above:Expected: 01/22/2022, Expires: 03/24/2022tart: 77-47-9584WZWBP-19 VACCINE (4 - Booster for Pfizer series) COVID-19 VACCINE (4 - Booster for Pfizer series)[facility]: 69-64-0554GXEFP-19 VACCINE (4 - Booster for Pfizer series)COVID-19 VACCINE (4 - Booster for Pfizer series)[facility]: 53-90-8339YPXFA-19 VACCINE (6 - Pfizer series)COVID-19 VACCINE (6 - Pfizer series)[facility]: 78-16-2264DJICLYA DIRECTIVE DISCUSSIONADVANCE DIRECTIVE DISCUSSIONSt. Charles Hospitaltart: 45-14-0283XBWNPZMHWN ASSESSMENTDEPRESSION ASSESSMENTCleGreen Cross Hospitaltart: 36-26-3472Hlcaapdnm vaccinationINFLUENZA (#1)[facility]: 97-24-2697IQZGPLYZEUDI: 65+ (3 - PPSV23 or PCV20)PNEUMOCOCCAL: 65+ (3 - PPSV23 or PCV20)[facility]: 73-14-1984Kzgqo panelLipidsBON [facility]art: 41-71-3994VFT Vaccine (1 - 1-dose 75+ series)RSV Vaccine (1 - 1- dose 75+ series)[facility]: 68-41-7554Hgofc microalbumin profile DTAP,TDAP,TD (1 - Tdap)[facility]: 07-01-2005Medicare Annual Wellness VisitMedicare Annual Wellness VisitSt. Charles Hospitaltart: 40-10-3286Pvvt Risk ScreeningFall Risk ScreeningProTuscarawas Hospitaltart: 47-85-8507Zwnhiztdm B Vaccine (1 of 3 - Risk 3-dose series)Hepatitis B Vaccine (1 of 3 - Risk 3-dose series)[facility]: 37-42-8482Aavdbeiiqdd Syncytial Virus (RSV) or age 60 yrs+ (1 - 1-dose 60+ series)Respiratory Syncytial Virus (RSV) or age 60 yrs+ (1 - 1-dose 60+ series)[facility]: 68-12-2406IHL Vaccine (1 - 1-dose 60+ series)RSV Vaccine (1 - 1-dose 60+ series) [facility]: 58-21-1498NXSBCGQX VACCINE (1 of 2)SHINGRIX VACCINE (1 of 2)[facility]: 04-53-4732Kwbcvqkbc A Vaccine (1 of 2 - Risk 2-dose series)Hepatitis A Vaccine (1 of 2 - Risk 2-dose series)[facility]: 92-81-9256XWUONNYO VACCINE (1 of 2)SHINGRIX VACCINE (1 of 2)[facility] Start: 01-45-7852Zsqqmgy ScreeningAnxiety ScreeningSt. Charles Hospitaltart: 30-03-9654Zvpxfbpepa ScreeningDepression ScreeningSt. Charles Hospitaltart: 77-91-9630XNM Vaccine (1 of 2 - Risk 2-dose series)MMR Vaccine (1 of 2 - Risk 2- dose series)[facility]: 29-76-1304Kngldqzpcw ScreenDepression Screen BON [facility]: 95-66-7579Qonxokhmll ScreeningDepression ScreeningCone Health Alamance Regionaltart: 78-36-9527Fmfqvyolpytlj B Vaccine: Consider Based On Risk (1 of 4 - Increased Risk)Meningococcal B Vaccine: Consider Based On Risk (1 of 4 - Increased Risk)[facility] End: 35-71-8473Wu abdomen & pelvis w/contrast materialCT ABD/PEL W IVCON Radiology Routine Malignant neoplasm of overlapping sites of bladder (HCC) 1 Occurrences starting 05/16/[address] [place] [address] Work Phone: Comment on above:1 Occurrences starting 05/16/2023 until 06/14/2024 End: 83-97-3059NY Abdomen and Pelvis W contrast IVCT ABD/PEL W IVCON Radiology Routine Malignant neoplasm of urinary bladder, unspecified site (HCC) 1 Occurrences starting 12/20/[address] [place] [address] Work Phone: Comment on above:1 Occurrences starting 12/20/2023 until 01/18/2025 End: 39-62-8963XI Chest W contrast IVCT CHEST W IVCON Radiology Routine Malignant neoplasm of urinary bladder, unspecified site (HCC) 1 Occurrences starting 12/20/[address] [place] [address] Work Phone: Comment on above:1 Occurrences starting 12/20/2023 until 01/18/2025 End: 11-31-4722JT CHEST W IVCONCT CHEST W IVCON Radiology Routine Malignant neoplasm of overlapping sites of bladder (HCC) 1 Occurrences starting 05/16/[address] [place] [address] Work Phone: Comment on above:1 Occurrences starting 05/16/2023 until 06/14/2024 End: 29-36-9576Nfceqwu, Wound (with Gram Stain)[facility] CoachUpComment on above:1 Occurrences starting 01/04/2025 until 01/04/2025ECG COMPLETEECG COMPLETE ECG Routine Pre-op evaluation 09/12/2022 11:47 AM [facility] Work Phone: ekg 12 LeadEKG 12 Lead ECG STAT 03/22/2024 5:52 PM EDT [facility] [address] [facility] CENTERREFERRAL FOR ADDITIONAL BIOMARKER AND MOLECULAR TESTING REFERRAL FOR ADDITIONAL BIOMARKER AND MOLECULAR TESTING Lab Routine Malignant neoplasm of ureter, unspecified laterality (HCC) 12/03/2022 9:12 AM [facility] Work Phone: [facility] Immunizations Immunization DateImmunizationNotesCare EkfxftiiIyzmitpv05-05-9603gzbjhe vaccine recombinantChair Winsome Work Phone: [facility] HospitalYakmkk77-36-8725zkamis vaccine, unspecified formulationKatherine Ball PUBLIC SPEAKING PROFESSOR-ARBORICULTURE INSTRUCTOR Work Phone: [facility] CenterKqrsrq66-33-2345tlmcmjloix, tetanus toxoids and pertussis vaccineChair Loving Work Phone: [facility] HospitalVofeuv66-51-7137REUI-XkQ-0 (COVID-19) mRNA BNT-162b2 [facility]02-13-2021SARS-CoV-2 (COVID-19) mRNA BNT-162b2 [facility]01-23-2021SARS-CoV-2 (COVID-19) mRNA BNT-162b2 [facility] [place] 572940-27-2015influenza nasal, unspecified formulationChair [employer] Work Phone: [facility] HospitalHwnwxb26-53-4859qiwphxarg virus vaccine, unspecified formulationPaApplied BioCode [facility] [place] 572940-27-2015influenza, intradermal, quadrivalent, preservative free, injectableSiwally Perea MD Work Phone: [facility] HospitalRrabqc53-73-5714ytodzlpfovqx conjugate vaccine, 13 valCamryn Perea MD Work Phone: [facility] HospitalIzvlwo49-68-7436mkyrpelwvwqy polysaccharide vaccine, 23 valCamryn Perea MD Work Phone: [facility] HospitalQhedvp60-50-7176mfbidnx and diphtheria toxoids, adsorbed, preservative free, for adult use (2 Lf of tetanus toxoid and 2 Lf of diphtheria toxoid)Jian JENNIFER [facility]04-04-2013tetanus and diphtheria toxoids, adsorbed, preservative free, for adult use (5 Lf of tetanus toxoid and 2 Lf of diphtheria toxoid)Soren Perea MD Work Phone: [facility] HospitalGfqoff38-84-8720qgkdgzz and diphtheria toxoids, not adsorbed, for adult useLeni Santiago MD Work Phone: bCentra HealthNEGATED: Highlighted row has not occurred!02-66-9909pgbdgsjct, injectable, quadrivalent, preservative free Harpreet Avalos APRN-ARBORICULTURE INSTRUCTOR Work Phone: [facility] SystemComment on above:Deferred: Patient Refused Payers DatePayer CategoryPayerPolicy [id number] Health Insurance [id number] [id number] 2018 Private Health [id number] 93-21-8286Lufuqsv Care Other (unspecified)[facility] [id number] 2005MedicareMEDICARE MEDICARE A AND B [id number] 2005-[facility] [phone] [place] [address] [id number] [id number] 1960Medicare [id number] [id number] [id number] 1960Unknown [id number] 2.0.1.566111.3.579.2. [id number] 2.0.1.777904.3.57[id number] 2..1.903767.3.57[id number] 2.840.1.016578.3.57[id number] 2.0.1.694771.3.57[id number] 2.16840.1.018969.3.57[id number] 2.840.1.661620.3.57[id number] 2.16.840.1.534818.3.57[id number] 2.16.840.1.624764.3.57[id number] 2.16.840.1.400152.3.57[id number] 2.16.840.1.174470.3.57[id number] 2.16.840.1.515794.3.57[id number] 2.16.840.1.256920.3.57[id number] 2.16.840.1.928484.3.57[id number] 2.16.840.1.522567.3.57[id number] 2.16.840.1.730550.3.57[id number] 2.16.840.1.726533.3.[id number] 2.16840.1.303922.19 Social History DateTypeDetailFacilityStart: 07-14-2018 End: 43-53-6660Kcsgzfp smoking status NHISEx-smokerBrown Memorial HospitalComment on above:patient quit smoking over 30 years agoStart: 10-14-1940 End: 18-94-1777Ltrpqqe of tobacco useCurrent smokerSt. Charles Hospitaltart: 10[birth year]14-1941 End: 33-51-8949Yfjelze of tobacco useCigarette SmokerSt. Charles Hospitaltart: 07-14-2018 End: 77-76-6604Vylyxhuuiz smoked current (pack per day) - Uyvyjoza2Gnbajsiog ClinicStart: 07-14-2018 End: 21-46-8140Unjdxzp use and exposureSmokeless tobacco non-userSt. Charles Hospitaltart: 01-08-2022 End: 73-64-7649Etpkyhi intakeCurrent non-drinker of alcohol (finding)[facility]: 72-70-5342Fkn Assigned At [facility]: 12-29-2021 End: 37-64-7639Smnctuey to SARS-CoV-2 (event)Not sureSt. Charles Hospitaltart: 11-24-2020 End: 93-16-0547Igw Assigned At [facility] CenterHistory of tobacco usePassive smokerKettering Health Miamisburg smoking statusNeverExecutive [facility]rology of Centerville SanduskyComment on above:patient quit smoking over 30 years agoStart: 54-61-1118Onthhz identityIdentifies as male gender (finding)[facility]: 97-92-6082Evqtus orientationHeterosexual (finding)[facility]: 03-22-2024 End: 33-13-0453Itpbmdj intakeLifetime non-drinker (finding)Infused IndustriesHow often to you have a drink containing alcohol?NeverBAYSTATE MARY LANE HOSPITALQian Xiao'er [facility]1DayLater [facility]ENTERStart: 16-75-1895Efe Assigned At [facility] CenterNot on fileBON [address] [facility] Has the electric, gas, oil, or water company threatened to shut off services in your home in past 12MoNoBon CoachUp(I/We) worried whether (my/our) food would run out before (I/we) got money to buy more.Never trueBon OpTrip [facility] HospitalStart: 05-19-2015 End: 15-16-3852GcjLsuo (finding)[employer] Medical Equipment Procedure CodeEquipment CodeEquipment Original TextEquipment IdentifierDates Inlay Bent Ureteral Stent Kit 7f X [id number]: 48-96-1656Fphfz Inlay Bent 7fr Taper [place] Polymer Phreecoat 24cm Ureteral - [id number]: 60-63-4595Jafpx Inlay Bent 7fr Taper [place] Polymer Phreecoat 26cm Ureteral - [id number]: 11-75-7895Vbltp Nicore Inlay Bent 7fr Taper [place] Nitinol Polymer 24cm - [id number] Start: 53-05-2617Ykrzw Inlay Bent 6fr Taper [place] Polymer Phreecoat 24cm Ureteral - [id number]: 29-21-2686Mvekjyk pacemaker, device (physical object) ([id number])Pacemaker Ldls Dr Pm 19.5f 32.2 Mm Ra Crd Strl - [id number] - [id number]()[id number], [id number] FDA Start: 56-84-3297Ljqmkcc pacemaker, device (physical object) ([id number])Pacemaker Ldls Dr Levy 19.5f 38.0 Mm Rv Crd Strl - [id number] - [id number] ()[id number], [id number] FDAStart: 04-21-2025 Goals DatePatient GoalDesired Activity/StatePersonal health goalComment on above: Evaluation of progress towards goal: patient progressing toward safe discharge home. Functional Status WpauUajqbitpqqGdkhgmMlsuxyzi55-19-5948Kwospgcoyt StatusN/AExec[facility]02-05-2023Are you deaf, or do you have serious difficulty hearingNo 11/18/2022 10:06 AM Pat Cary RN [facility]02-05-2023Are you blind, or do you have serious difficulty seeing, even when wearing glassesNo 11/18/2022 10:06 AM Pat Cary RN [facility]02-05-2023Do you have serious difficulty walking or climbing stairsNo 11/18/2022 10:06 AM Pat Cary RN NoCRegency Hospital [facility] 74-92-2628So you have difficulty dressing or bathingNo 11/18/2022 10:06 AM Pat Cary RN [facility] HospitalDwbalf02-84-5985Nkrwhil of a physical, mental, or emotional condition, do you have difficulty doing errands alone such as visiting a physician's office or shoppingNo 11/18/2022 10:06 AM Pat Cary RN [facility] Mental Status BtbtFpzxbvjksiDvtatvParymkqj04-31-3616Pblpksl of a physical, mental, or emotional condition, do you have serious difficulty concentrating, remembering, or making decisionsNo 11/18/2022 10:06 AM Pat Cary RN [facility] Clinical Notes 07-08-2020 to 07-19-2025 Note Date & WdpvGicmXsmbnbau65-68-1370 NoteUT Cardiology - [facility] Iain Austin is a 85 y.o. year old male patient being seen for a 6 follow up appointment with ECHO. Per patient he is doing well, patient states he is outside decorating for MEARS Technologieseen doing is flower bed and mowing without any problems. Patient is question if he is to return to taking his hydralazine 25 mg he has been off it since April. Patient denies chest pain. Patient complains of occasional chest pain, SOB, CHANDRA, bleeding/bruising. Patient Active Problem List Diagnosis Hypertensive disorder [...] encounter Congenital hypothyroidism Dyslipidemia Pre-operative cardiovascular examination Infection of pacemaker pocket Abdominal pain Abnormal results of cardiovascular function studies Benign prostatic hyperplasia Bradycardia Chest wall ulcer, with fat layer exposed Dehydration Depressed left ventricular ejection fraction Dry mouth Gastritis Encounter for follow-up examination after completed treatment for malignant neoplasm History of primary malignant neoplasm of urinary system Hypomagnesemia Iron deficiency anemia Liver disease, unspecified 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 Open wound of left chest wall Presence of cardiac pacemaker Severe protein-calorie malnutrition (Aj: less than 60% of standard weight) Surgical wound present Urothelial carcinoma (CMS/HCC) Vomiting Family History Problem Relation Name Age of Onset Heart failure Mother Lung cancer Father Social History Tobacco Use Smoking status: Former Current packs/day: 0.00 Types: Cigarettes Quit date: 1979 Years since quittin.7 Smokeless tobacco: Never Vaping Use Vaping status: Never Used Substance Use Topics Alcohol use: Not Currently Drug use: Never HPI Mr Juan Jose Austin is seen in follow up. He is a 85 yo man. He was initially seen on [...] moderate, relieved by rest. He was evaluated [facility] ED and his CBC, BMP, [...] he has mild shortness of breath on ac (more content not included)...[facility]08-04-2025 History of Present illness Narrative* Harpreet Avalos, PUBLIC SPEAKING PROFESSOR-ARBORICULTURE INSTRUCTOR - 05/17/2025 8:30 AM EDT Images from the original note were not included. Wound Care Progress Note Patient: Juan Jose Austin Date of : 1940 Chief Complaint: Follow-up left chest wound Subjective/HPI: Juan Jose is a 85 y.o. male who presents to [facility] for evaluation of 1 [...] variants x2, and MSSA and variant, and RADIOISOTOPE PRODUCTION OPERATOR. CULTURE RESULTS Staphylococcus aureus Abnormal Staphylococcus aureus [...] 04/21/2025 Performed by Bryan Mccoy MD at [facility] (EP) HERNIA REPAIR NEPHRECTOMY Left jul 03, [...] tablets (50 mg total) by mouth in themorning. pantoprazole (PROTONIX) 40 mg EC tablet Take [...] past medical history, past social history, past surgicalhistory, problem list, and medication reconciliation was completed including current medication andpost discharge medication. Pain: Pain Scale 0/10: 0 [...] diaphoretic. HENT: Head: Normocephalic and atraumatic. Comments: [place] Eyes: General: No scleral icterus. Extraocular Movements: [...] 1 Incision Chest Left;Upper (Active) Wound Image 05/17/25 08 Site Assessment Red 05/17/25847 Ujlia-wound Assessment Intact;[place];Blanchable erythema 05/17/25 0848 Wound Length (cm) 0.3 cm 05/17/25 0848 Wound Width (cm) 0.1 cm 05/17/25 0848 Wound Surface Area (cm^2) 0.02 cm^2 05/17/25847 Wound Depth (cm) 0.2 cm 05/17/25 08 Wound Volume (cm^3) 0.003 cm^3 05/17/25 0848 Change in Wound Size % 75 05/17/25 08 Drainage Description Serosanguineous 05/17/25847 Drainage Amount Scant [...] left chest. Short term goal: medical compliance joint terminal attack controller goal: wound closure(maintained closure) Patient verbalizes understanding [...] health record LIZ Horvath 05/17/25 8:55 AM [facility] [phone] LIZ Horvath 05/17/25 1249 documented in this encounterKettering Health TroyJump Ramp Games Up Health SystemHnbzzp28-62-1861 Instructions* Patient Instructions* Skylar Davidson RN - 05/17/2025 8:30 AM [...] Description moderate Serosanginous serosanguinous documented in this encounterMercy Health St. [facility]08-01-2025 NoteInfectious Disease. Telemedicine Note Consent Statement: I discussed [...] that there are some limitations compared to myku-ck-qnqp evaluations. We elected to proceed. Division of Infectious Diseases - Progress Note Our team prefers to use [employer] for communication during business hours (8 AM - 5 PM). We make every effort to keep the Treatment Team in [employer] updated. If I do not respond within 30 minutes, please call the answering service. From 5 PM - 8 AM, please call our answering service at [phone] to speak to the on-call physician. Patient name: Juan Jose B Austin Patient Today's Date and Time: 05/12/2025, 5:11 PM PCP: Dr. Mayen Might Discharged from [facility] on 04/23/25 Location of provider: [facility] Current location of patient: [place] Impression /Recommendations: PPM pocket infection MSSA Initially presented to [facility] given concern for pacer pocket infection beginning [...] erythema, swelling and tenderness. He presented to [facility] originally for pacer pocket infection. He thinks the infection began in late December 2024. He was assessed by her relations liaison who thought the pacer wires were starting to erode. It was recommended to have a leadless PPM implanted but could only be done at [facility] or [facility]. He was then transferred. Started of IV [...] progress note was completed using a voice synthetic plasterer system. Every effort was made to ensure accuracy; however, inadvertent computerized synthetic plasterer errors may be present. Thank you for allowing us to participate in the care of this patient. Please do not hesitate to reach out to me via EpicChat or pager with any questions or concerns. Adelina Johnson APRN, CNP Please contact via [facility]07-26-2025 History of Present illness Narrative* Chago Hernandez APRN-ABIOLA - 05/08/2025 10:30 AM EDT Juan Jose Shirley Austin Date of visit: 05/08/2025 Date of [...] tablets (50 mg total) by mouth in themorning. pantoprazole (PROTONIX) 40 mg EC tablet Take 1 tablet (40 mg total) by mouth in the morning. potassium chloride (KLOR-CON SPRINKLE) 10 MEQ CR capsule Take 1 capsule (10 mEq total) by mouth in the morning. tamsulosin (FLOMAX) 0.4 mg capsule Take 1 capsule (0.4 mg total) by mouth nightly. No current facility-administered medications for this visit. Chief Complaint Patient presents with Follow-up iw-avnwr-oemmdoqit w/pt status post dual-chamber leadless pacemaker Chest infection due to the pacemaker Atrial Fibrillation Shortness of Breath History of Present Illness Juan Jose Austin is a 85-year-old with history of CKD, renal cancer with nephrectomy, ulcerative colitis,remote history of paroxysmal atrial flutter nonobstructive coronary artery disease, syncope/complete heart block with [employer] dual-chamber pacemaker implanted 2022, lead revision January 2024. He follows with [facility] Cardiology. Patient presented to hospital for drainage from pacemaker site/erosion. He underwent a leadless pacemaker insertion with transvenous pacemaker explant 04/21/2025 which wascomplicated by brief loss of capture requiring ACLS [...] 04/21/2025 Performed by Bryan Mccoy MD at [facility] (EP) HERNIA REPAIR NEPHRECTOMY Left jul 03, 2018 History reviewed. No pertinent family history. Social History Socioeconomic History Marital status: Spouse name: Not on file Number of children: Not on file Years of education: Not on file Highest education level: Not on file Occupational History Occupation: retired Employer: [employer] Tobacco Use Smoking status: Former Types: Cigarettes Smokeless tobacco: Never Vaping Use Vaping status: Never Used Substance and Sexual Activity Alcohol use: No Drug use: No Sexual activity: Never Other Topics Concern Caffeine Use Yes Social History Narrative Not on file Social Drivers of Health Financial Resource Strain: Patient Declined (04/22/2024) Received from [employer] [facility] Overall Financial Resource Strain (CARDIA) Difficulty of Paying Living Expenses: Patient declined Food Insecurity: No Food Insecurity (05/03/2025) Hunger Screening Food Insecurity - Worry: Never True Food Insecurity - Inability: Never True Transportation Needs: No Transportation Needs (04/27/2025) Received from [employer] [facility] PRAPARE - Transportation Lack of Transportation (Medical): No Lack of Transportation (Non-Medical): No Physical Activity: Insufficiently Active (10/27/2024) Received from [employer] [facility] Exercise Vital Sign Days of Exercise per Week: 5 days Minutes of Exercise per Session: 10 min Stress: Not on file Social Connections: Not on file Interpersonal Safety: Not At Risk (04/20/2025) Humiliation, Afraid, Rape, and Kick questionnaire Fear of Current or Ex-Partner: No Emotionally Abused: No Physically Abused: No Sexually Abused: No Housing Instability: Low Risk (04/27/2025) Received from [employer] [facility] Housing Stability Vital Sign Unable [...] of paroxysmal atrial flutter Syncope/complete heart block [employer] dual-chamber pacemaker implanted 2022, lead revision January 2024 Incision is healing well. Continues to follow with wound care for dressing/iodoform. Denies groin pain, swelling, bruising. Follow-up with [facility] Cardiology as scheduled. Patient was seen when Dr. Verma was present and immediately available in office suite. TODAYS ORDERS No orders of the defined types were placed in this encounter. FOLLOW UP Return if symptoms worsen or fail to improve. PCP: LIZ LAKHANI Referring Physician: LIZ Lakhani [address] [place] [address] LIZ Combs 05/08/25 1052 documented in this [facility]07-23-2025 Miscellaneous Notes* Telephone Encounter - Gill Chiu CMA - 05/05/2025 2:14 PM EDT Called patient to remind them to bring their most current copy of their medication list with them to their appt. Patient verbalizes understanding. documented in this [facility]07-23-2025 Telephone encounter Note* Telephone Encounter - Gill Chiu CMA - 05/05/2025 2:14 PM EDT Called patient to remind them to bring their most current copy of their medication list with them to their appt. Patient verbalizes understanding. [facility]07-23-2025 Miscellaneous Notes* Telephone Encounter - Jazmine Yu RN - 05/05/2025 9:50 AM EDT Patient's daughter called in stating the wound care nurse needs an order for the patient's sutures to be removed from his device extraction site. Spoke with ORK over the phone, stated sutures should be removed after 14 days. Left message for the [place] [facility] to determine if a verbal or written order is needed. * Telephone Encounter - Chelle Lacy RN - 05/05/2025 9:50 AM EDT Pooja Avalos NP calls back, informed of SUNIL Lucero message. She states that the discussion with the daughter was that our office was attempting to contact her to make a follow up for Juan Jose and that she should call us to make this appointment. She would prefer patient to follow up with us to get sutureout. She states that if needed she could take them out but would prefer patient to follow with us to get them out and check surgery site. Will have scheduling call daughter again to attempt to schedule. * Telephone Encounter - Jazmine Yu RN - 05/05/2025 9:50 AM EDT Wound check appointment scheduled on 05/08/25 with BMD documented in this encounter[facility] Telephone encounter Note* Telephone Encounter - Jazmine Yu RN - 05/05/2025 9:50 AM EDT Patient's daughter called in stating the wound care nurse needs an order for the patient's sutures to be removed from his device extraction site. Spoke with ORK over the phone, stated sutures should be removed after 14 days. Left message for the [place] [facility] to determine if a verbal or written order is needed. [facility]07-23-2025 Telephone encounter Note* Telephone Encounter - Chelle Lacy RN - 05/05/2025 9:50 AM EDT Pooja Avalos NP calls back, informed of SUNIL Lucero message. She states that the discussion with the daughter was that our office was attempting to contact her to make a follow up for Juan Jose and that she should call us to make this appointment. She would prefer patient to follow up with us to get sutureout. She states that if needed she could take them out but would prefer patient to follow with us to get them out and check surgery site. Will have scheduling call daughter again to attempt to schedule. [facility]07-23-[facility] Telephone encounter Note* Telephone Encounter - Jazmine Yu RN - 05/05/2025 9:50 AM EDT Wound check appointment scheduled on 05/08/25 with BMD [facility]07-22-[facility] History of Present illness Narrative* Harpreet Avalos APRN-ABIOLA - 05/04/2025 7:08 PM EDT 05/04/25 Contacted patient's daughter Dennis. She reports she was not contacted by Infectious Disease. Discussed that recommendation is for Infectious Disease follow-up to ensure current antibiotic and lengthof treatment is appropriate for finalized surgical wound cultures. Dennis voiced understanding and reports she will call for follow-up appointment. Phone number [phone] provided. Dennis asked telegraphic typewriter installer why sutures were not removed at yesterday's wound care visit. Cable Rigger shared with Dennis that patient and his grandson reported patient has upcoming follow-up with surgeon and theywere told sutures would be removed by surgeon [...] Dr. Mccoy's office provided to patient's daughter ([phone]). She voices understanding to contactoffice to schedule follow-up. We discussed that it is my expectation that sutures would be removed at that time. Wound care is ongoing. Patient has follow-up in place for wound care as well. - LIZ Horvath 05/04/25 7:23 PM LIZ Horvath 05/04/251922 documented in this encounterMer[facility] Health [facility]. [facility]07-[facility]-20[facility] History of Present illness Narrative* LIZ Horvath - 05/03/2025 3:00 PM EDT Images from the original note were not included. Wound Care Progress Note Patient: Juan Jose Austin Date of : 1940 Chief Complaint: New patient evaluation for left chest wound Subjective/HPI: Juan Jose is a 85 y.o. male who presents to [facility] for evaluation of 1 [...] variants x2, and MSSA and variant, and RADIOISOTOPE PRODUCTION OPERATOR. Patient denies being directed to follow-up with [...] be negative for vegetations. Will communicate with [facility] ID to ensure no additional antibiotics warranted [...] 04/21/2025 Performed by Bryan Mccoy MD at [facility] (EP) HERNIA REPAIR NEPHRECTOMY Left jul 03, [...] by mouth 3 (three) times a day for12 days. 36 capsule 0 ferrous sulfate 325 [...] tablets (50 mg total) by mouth in themorning. pantoprazole (PROTONIX) 40 mg EC tablet Take [...] past medical history, past social history, past surgicalhistory, problem list, and medication reconciliation was completed including current medication andpost discharge medication. Pain: Pain Scale 0/10: 0 [...] diaphoretic. HENT: Head: Normocephalic and atraumatic. Comments: NEW [place] Eyes: General: No scleral icterus. Extraocular Movements: [...] Incision Chest Left;Upper (Active) Wound Image 05/03/25 1518 Site Assessment Red;Bleeding 05/03/25 1518 Julia-wound Assessment Intact;[place] 05/03/25 151 Wound Length (cm) 0.2 cm 05/03/25 1518 Wound Width (cm) 0.5 cm 05/03/25 151 Wound Surface Area (cm^2) 0.08 cm^2 05/03/25 1518 Wound Depth (cm) 1 cm 05/03/25 1518 Wound Volume (cm^3) 0.052 cm^3 05/03/25 1518 Drainage Description Serosanguineous;Yellow;Jimenez 05/03/25 1518 Drainage Amount Moderate 05/03/25 151 Treatments Cleansed with;Soak with;Vashe/Hypochlorous Acid 05/03/25 1518 Debridement Performed? N 05/03/25 155 Dressing Type Packing Plain;Silicone dressing;Foam;Other (Comment) 05/03/25 155 Dressing Changed New 05/03/251549 Dressing Status Clean;Dry;Intact 05/03/251549 Wound Bed Granulation (%) 100% 05/03/25 151 Undermining 1 (cm) 2.2 cm 05/03/251549 Start: Undermining 1 Clock Position 9 o'clock [...] daily Continue Keflex as prescribed until gone Cable Rigger will communicate with Infectious Disease to ensure no further antibiotics needed in the setting of cultures finalizing positive with MSSA and variants x2, and MSSA & variant, RADIOISOTOPE PRODUCTION OPERATOR and determine in outpatient follow-up needed. Patient also directed to contact Infectious Disease to schedulefollow-up if needed. Follow-up with Surgeon as scheduled. Patient and Other: Grandson instructed in wound care to left chest. Short term goal: medical compliance senior living goal: wound closure(maintained closure) Patient verbalizes understanding [...] procedures Referring and communicating with other health gericare aide teacher (not separately reported) Documenting clinical information in the electronic or other health record LIZ Horvath 05/03/25 3:29 PM [facility] [phone] LIZ Horvath 05/03/25 8943 documented in this encounterKettering Health TroyJump Ramp Games Up Health [id number] Instructions* Patient Instructions* Skylar Davidson RN - 05/03/2025 3:00 PM EDT GRECIA CARIN05/03/25: new orders ( please order Vashe wound solution, 1/4 plain packing, siliconeborder foam dressing) Wound Management Treatment Plan Wound [...] 05/03/25 1 Incision Chest Left;Upper-Wound Depth (cm): 1cm Wound drainage Type Description moderate Serosanginous serosanguinous documented in this encounterMer[facility] St. [facility]07-[facility]-2025 Telephone encounter Note* Telephone Encounter - Shannan Castelan RN - 04/22/2025 9:05 AM EDT Pt scheduled for CT tomorrow. Currently hospitalized at [facility] in [place]. New defibrillator placed- site became reddened and erode at insertion site. Pt will call back to reschedule CT and f/u appt. Yu Martinez to scan notes in chart Thank You! Shannan Castelan RN [facility]07-10-2025 Miscellaneous Notes* Telephone Encounter - Shannan Castelan RN - 04/22/2025 9:05 AM EDT Pt scheduled for CT tomorrow. Currently hospitalized at [facility] in [place]. New defibrillator placed- site became reddened and erode at insertion site. Pt will call back to reschedule CT and f/u appt. Yu Martinez to scan notes in chart Thank You! Shannan Castelan RN documented in this encounterBrown Memorial Hospital05-13-2025 NoteUT Electrophysiology Consult Note Reason for visit: S/P [...] moderate, relieved by rest. He was evaluated [facility] ED and his CBC, BMP, [...] No palpitations. No syncope. (more content not included)...[facility]05-07-2025 Note CO Electrophysiology Consult Note Reason for visit: S/P [...] moderate, relieved by rest. He was evaluated [facility] ED and his CBC, BMP, [...] extremity edema. He den (more content not included)...[facility] 02-17-2025 NotePatient is here today for 3 week found check. Patient denies fever, chills, body aches, pain. Review of Systems Constitutional: Negative.[facility]04-22-2025 NoteUT Electrophysiology Consult Note Reason for visit: S/P [...] moderate, relieved by rest. He was evaluated [facility] ED and his CBC, BMP, [...] he had elevated BNP. (more content not included)...[facility]04-10-2025 NotePOCKET REVISION PROCEDURE NOTE DATE OF PROCEDURE: 01/21/2025 PERFORMING PHYSICIAN: Dr. Olive Bautista CONSENT: Patient LOCATION: EP Lab PROCEDURE [...] Bactrim x 4 weeks depending on culture Olive Bautista MD Cardiac ElectrophysiologyUnCincinnati Children's [facility]04-10-2025 Note Patient: Juan Jose Austin Procedure Information Date/Time: 01/21/25 1700 Procedure: Pocket relocate Location: [facility] SLOTTER OPERATOR 3 / [facility] (Cath) Providers: Olive Bautista MD Clinical information reviewed: Allergies Meds Physical Exam Airway Mallampati: II TM distance: >3 FB Neck ROM: full Cardiovascular Dental Pulmonary Abdominal Anesthesia Plan ASA 3 CSE Anesthetic plan and risks discussed with patient. Use of blood products discussed with patient who. Additional Equipment RequestsUnCincinnati Children's Hospital [facility]04-08-2025 Note CO Electrophysiology Consult Note Reason for visit: S/P [...] moderate, relieved by rest. He was evaluated [facility] ED and his CBC, BMP, [...] artifact is not c (more content not included)...[facility]03-28-2025 NoteUT Cardiology - [facility] Iain Austin is a 84 y.o. [...] Current packs/day: 0.00 Types: Cigarettes Quit date: 1980 Years since quittin.2 Smokeless tobacco: Never Vaping [...] moderate, relieved by rest. He was evaluated [facility] ED and his CBC, BMP, [...] to apex favoring remote (more content not included)...[facility]01-10-2025 History of Present illness Narrative* Graeme Vazquez MD - 10/23/2024 9:40 AM EST Images from the original note were not included. NAME: DanielJuan Jose CLINIC NO.: [id number] DATE OF SERVICE: October 23, 2024 (Eve) Some elements in this clinic note that are critical to medical decision making have been carefully reviewed and included from a prior clinic note dated: August 21, 2024 (Eve) Referring Provider: Dr. Galen Bhatt Additional Clinicians involved in Juan Jose Austin's care: Dr. Sergio Sneed (PCP), Dr. Galen Bhatt, Dr. Jian [...] diarrhea. After last infusion, he had a spellof dizziness resulting in a fall and head [...] pelvis. 07/10/2024 - EGD/Colonoscopy: with Dr. Jacob Bear at [facility] Diverticulitis A. Duodenum, biopsy: - Duodenal mucosa with no significant histologic abnormality. B. Random colon, biopsy: - Quiescent colitis. - No evidence of activity, dysplasia or microscopic colitis. 06/29/2024 - CT CAP: Chest: Mild soft tissue prominence at the right hilum, stable. Correlation with continued follow-upexaminations is recommended. Improved appearance to previously described [...] to suggest obstruction. 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 There is also a stable 6 mm hypervascular focus within the subcapsular dome of segment 8 of the liver which may represent a perfusion anomaly or small vascular anomaly. Stable splenic lesions which are nonspecific on cross-sectional imaging but have been present [id number]. The largest lesion is hypervascular and may [...] abdominal or pelvic processes identified. Distended gallbladder. Ifconcern for acute gallbladder pathology consider ultrasound. 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 08/23/2023 - CT CAP: No evidence of intrathoracic metastases. New 1.6 cm right thyroid nodule. More conspicuous indeterminate 2.7 x 1.0 cm hypodensity in left frontal lobe adjacent to the falciform ligament. Differentialdiagnosis includes area of focal fatty infiltration, perfusion anomaly and other focal hepatic abnormality. Consider continued interval follow-up or further evaluation via MRI. 05/31/2023 - CT CAP: Negative. 03/18/2023 - Permanent pacemaker placed 03/07/2023 - Pembrolizumab resumed with duration changed to every 4 weeks 01/23/2023 - progressive dyspnea held Pembro and started on 5 days of steroids.resolved and resumedtreatment 01/02/2023 - started pembrolizumab - plan for [...] laser. Right ureteral washings with atypical cells. Onedose of mitomycin administered. 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 Right renalwashings positive for high grade urothelial carcinoma 07/03/2018 [...] stable pulmonary nodules, foci in the left ribs,and a right hilar lymph node. CT A/P shows no definite evidence of metastatic disease. Will proceedwith surveillance q 6 months. Shortness of breath [...] abnormal bruising. Overall, he is doing well andwishes to proceed with treatment as planned. Updated [...] diarrhea or other GI complaints. He denies he adaches and blurred vision. He complains of dry [...] pacemaker was inserted on on 03/18/2023 at [facility] with Dr. Bautista. His shortness [...] still concerned that he may have pneumonitis dueto immune therapy versus underlying dyspnea from chronic [...] he is a poor candidate for chemotherapy, minto based or otherwise. Surgery would yield him [...] radiology test) CT Chest ABD/PEL-Inject, intravenously, once for1 dose.No IV access, insert saline lock prior [...] both Oral and Rectal, Enteric Tube, Stoma orIndwelling Catheter, Enteric Contrast as designated per enteric [...] which included preparing to see the patient, [id number] patient care, completing clinical documentation, obtaining and/or reviewing separately obtained history, performing a medically appropriate examination, counseling and educating the patient/family/caregiver, ordering medications, tests, or procedures, independently interpreting results (not separately reported), communicating results to the patient/family/caregiver, and care coordination (not separately reported). Graeme Vazquez MD, CPE Hematology and Oncology Services Provided at: [place], [place] Scribe Attestation: This note was scribed by Jessica Cervantes on October 23, 2024 under the direction and supervision of Dr. Graeme Vazquez. I attest that all of the information documented is correct to the best of myknowledge. Provider Attestation: I, Graeme Vazquez MD, attest that all information documented by the above scribe is correct, and was supervised by me and under my direction. CC: Sergio Sneed MD [address] [place] [id number] documented in this encounterBrown Memorial Hospital01-10-2025 NoteHNO ID: [id number] Author: GRAEME VAZQUEZ MD Service: ? Author Type: Physician Type: Progress Notes Filed: 10/23/2024 13:11 Note Text: NAME: DanielJuan Jose [facility] NO.: [id number] DATE OF SERVICE: October 23, 2024 (Eve) Some elements in this clinic note that are critical to medical decision making have been carefully reviewed and included from a prior clinic note dated: August 21, 2024 (Eve) Referring Provider: Dr. Galen Bhatt Additional Clinicians involved in Juan Jose Austin's care: Dr. Sergio Sneed (PCP), Dr. Galen Bhatt, Dr. Jian [...] pelvis. 07/10/2024 - EGD/Colonoscopy: with Dr. Jacob Bear at [facility] Diverticulitis A. Duodenum, biopsy: - Duodenal mucosa [...] to suggest obstruction. 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 Given the imaging appearance and short-term development, these may be infectious/inflammatory in etiology. Therefore, would advise a short-term follow-up chest CT without contrast in 6-8 weeks to (more content not included)...[facility]01-10-2025 Instructions* Patient Instructions* Jessica Cervantes - 10/23/2024 9:[address] CAP scans in 6 months Labs same day RTC 1 week after to review documented in this encounterBrown Memorial Hospital01-03-2025 History of Present illness Narrative* Margot Smith RT(R) - 10/16/2024 7:45 AM EST Radiology Service Progress Note PATIENT NAME: Juan [...] PATIENT PRESENTS WITH AN IMPLANTABLE OR ATTACHED CLAIMS REPRESENTATIVE: No RADIOLOGY DEPARTMENT: CT; Exam(s) Completed: Chest Abdomen Pelvis PERIPHERAL IV DATA: Site assessment: Clean,Dry and Intact, Site disposition Discontinued SIGNED BY: RT Loida(R) October 16, 2024 7:39 AM documented in this encounterBrown Memorial Hospital01-03-2025 NoteHNO ID: [id number] Author: MARGOT SMITH RT(Rosa) Service: ? Author Type: Technologist Type: Progress [...] PATIENT PRESENTS WITH AN IMPLANTABLE OR ATTACHED CLAIMS REPRESENTATIVE: No RADIOLOGY DEPARTMENT: CT; Exam(s) Completed: Chest Abdomen Pelvis PERIPHERAL IV DATA: Site assessment: Clean,Dry and Intact, Site disposition Discontinued SIGNED BY: RT Loida(R) October 16, 2024 7:39 [facility]01-03-2025 NoteHNO ID: [id number] Author: LINDA LAURENT RN Service: ? Author Type: Registered Nurse [...] SITE APPEARANCE: Clean,Dry and Intact SIGNATURE: Linda Laurent RN PATIENT NAME: Juan Jose Austin DATE: October 16, 2024 TIME: 7:30 [facility]01-03-2025 Procedure note* Linda Laurent RN - 10/16/2024 7:45 AM EST Radiology Service Progress Note DATE OF SERVICE: [...] creatinine assay has traceable calibration to isotope dilution- mass spectrometry. Refer to KDIGO guidelines for clinical interpretation. In patients with unstable renal function, e.g. those with acute kidney injury, the eGFRmay not accurately reflect actual GFR. eGFR- Date Value Ref Range Status 12/04/2021 42 Final P.O.C.T. RESULTS: POC done: Yes, See Lab Tab 2023 TREATMENT: No Hydration needed. IV SITE: Ambulatory: A peripheral IV was started in the Right antecubital site with a Angio cath: 20 gauge. IV SITE APPEARANCE: Clean,Dry and Intact SIGNATURE: Linda Laurent RN PATIENT NAME: Juan Jose Austin DATE: October 16, 2024 TIME: 7:30 AM [facility]01-03-2025 Procedure note* Linda Laurent RN - 10/16/2024 7:45 AM EST Radiology Service Progress Note DATE OF SERVICE: [...] creatinine assay has traceable calibration to isotope dilution- mass spectrometry. Refer to KDIGO guidelines for clinical interpretation. In patients with unstable renal function, e.g. those with acute kidney injury, the eGFRmay not accurately reflect actual GFR. eGFR- Date Value Ref Range Status 12/04/2021 42 Final P.O.C.T. RESULTS: POC done: Yes, See Lab Tab 2023 TREATMENT: No Hydration needed. IV SITE: Ambulatory: A peripheral IV was started in the Right antecubital site with a Angio cath: 20 gauge. IV SITE APPEARANCE: Clean,Dry and Intact SIGNATURE: Linda Laurent RN PATIENT NAME: Juan Jose Austin DATE: October 16, 2024 TIME: 7:30 AM documented in this encounterBrown Memorial Hospital12-04-2024 NoteCardiovascular Medicine [facility] SUBJECTIVE Chief Complaint Patient presents with Chest Pain Juan Jose Austin is a 84 y.o. male here for follow-up after his recent ER visit. 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 He stated he felt like something was poking him around his pacemaker but nothing was visible on the outside. He said he had been working on Outline all day that day. He received a [...] 90 tablet, Rfl: 3 glucosamine/chondroitin weber A/C (CSYYSETPPDH-MBIEHORRIYK-LCU C ORAL), Take 1 capsule by mouth [...] Disp: , Rfl: amLODIPin (more content not included)...[facility] 09-16-2024 NoteReview of Systems All other systems reviewed and are negative. believes pain was a pulled muscle from putting up [place] lights no more pain [facility]11-28-2024 Hospital Discharge instructions* Discharge Instructions* Leni Santiago MD - 09/10/2024 9:40 PM EST X-ray read is negative for any acute findings for movement of the pacer. Please call your relations liaison tomorrow discussed with the it is anything else acutely that you need to do or otherwise he may follow-up with PCP at regular scheduled intervals * Attachments The following attachments cannot be sent through Care Everywhere. * Chest Pain: Musculoskeletal (Czech) documented in this encounterBon [facility]11-[facility] History of Present illness Narrative* Graeme Vazquez MD - 08/21/2024 9:40 AM EST Images from the original note were not included. NAME: Juan Jose Austin CLINIC NO.: [id number] DATE OF SERVICE: August 21, 2024 (Eve) Some elements in this clinic note that are critical to medical decision making have been carefully reviewed and included from a prior clinic note dated: May 18, 2024 (Eve) Referring Provider: Dr. Galen Bhatt Additional Clinicians involved in Juan Jose Austin's care: Dr. Sergio Sneed (PCP), Dr. Galen Bhatt, Dr. Jian [...] diarrhea. After last infusion, he had a spellof dizziness resulting in a fall and head [...] Order 07/10/2024 - EGD/Colonoscopy: with Dr. Jacob Bear at [facility] Diverticulitis A. Duodenum, biopsy: - Duodenal mucosa with no significant histologic abnormality. B. Random colon, biopsy: - Quiescent colitis. - No evidence of activity, dysplasia or microscopic colitis. 06/29/2024 - CT CAP: Chest: Mild soft tissue prominence at the right hilum, stable. Correlation with continued follow-upexaminations is recommended. Improved appearance to previously described [...] to suggest obstruction. 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 There is also a stable 6 mm hypervascular focus within the subcapsular dome of segment 8 of the liver which may represent a perfusion anomaly or small vascular anomaly. Stable splenic lesions which are nonspecific on cross-sectional imaging but have been present [id number]. The largest lesion is hypervascular and may [...] abdominal or pelvic processes identified. Distended gallbladder. Ifconcern for acute gallbladder pathology consider ultrasound. 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 08/23/2023 - CT CAP: No evidence of intrathoracic metastases. New 1.6 cm right thyroid nodule. More conspicuous indeterminate 2.7 x 1.0 cm hypodensity in left frontal lobe adjacent to the falciform ligament. Differentialdiagnosis includes area of focal fatty infiltration, perfusion anomaly and other focal hepatic abnormality. Consider continued interval follow-up or further evaluation via MRI. 05/31/2023 - CT CAP: Negative. 03/18/2023 - Permanent pacemaker placed 03/07/2023 - Pembrolizumab resumed with duration changed to every 4 weeks 01/23/2023 - progressive dyspnea held Pembro and started on 5 days of steroids.resolved and resumedtreatment 01/02/2023 - started pembrolizumab - plan for [...] laser. Right ureteral washings with atypical cells. Onedose of mitomycin administered. 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 Right renalwashings positive for high grade urothelial carcinoma 07/03/2018 [...] abnormal bruising. Overall, he is doing well andwishes to proceed with treatment as planned. Updated [...] diarrhea or other GI complaints. He denies he adaches and blurred vision. He complains of dry [...] pacemaker was inserted on on 03/18/2023 at [facility] with Dr. Bautista. His shortness [...] still concerned that he may have pneumonitis dueto immune therapy versus underlying dyspnea from chronic [...] he is a poor candidate for chemotherapy, minto based or otherwise. Surgery would yield him [...] radiology test) CT Chest ABD/PEL-Inject, intravenously, once for1 dose.No IV access, insert saline lock prior [...] both Oral and Rectal, Enteric Tube, Stoma orIndwelling Catheter, Enteric Contrast as designated per enteric contrast guidelines iv contrast (will be provided with radiology test) CT Chest ABD/PEL-Inject, intravenously, once for1 dose.No IV access, insert saline lock prior to the beginning of sedation, infusion, injection of imaging exam. Discontinue saline lock post exam. If Pt. has a central line or IVAD, may access for administration according to line specific nursing protocol. Once exam is complete flush line and de-access according to line specific nursing protocol in the CT contrast administration guidelines link.(Patient not taking: Reported on 08/21/2024) enteric contrast (will be provided with radiology test) For CT CHESTABD/PEL W IVCON Routine order Administer, As Directed One Time Only, via Oral, Rectal, both Oral and Rectal, Enteric Tube, Stoma orIndwelling Catheter, Enteric Contrast as designated per enteric [...] which included preparing to see the patient, [id number] patient care, completing clinical documentation, obtaining and/or reviewing separately obtained history, performing a medically appropriate examination, counseling and educating the patient/family/caregiver, ordering medications, tests, or procedures, independently interpreting results (not separately reported), communicating results to the patient/family/caregiver, and care coordination (not separately reported). Graeme Vazquez MD, CPE Hematology and Oncology Services Provided at: [facility], [place], [place] Scribe Attestation: This note was scribed by Jessica Cervantes on August 21, 2024 under the direction and supervision of Dr. Graeme Vazquez. I attest that all of the information documented is correct to the best of myknowledge. Provider Attestation: I, Graeme Vazquez MD, attest that all information documented by the above scribe is correct, and was supervised by me and under my direction. CC: Sergio Sneed MD [facility] [id number] documented in this encounterBrown Memorial Hospital11-08-2024 NoteHNO ID: [id number] Author: GRAEME VAZQUEZ MD Service: ? Author Type: Physician Type: Progress Notes Filed: 08/21/2024 11:17 Note Text: NAME: DanielJuan Jose [facility] NO.: [id number] DATE OF SERVICE: August 21, 2024 (Eve) Some elements in this clinic note that are critical to medical decision making have been carefully reviewed and included from a prior clinic note dated: May 18, 2024 (Eve) Referring Provider: Dr. Galen Bhatt Additional Clinicians involved in Juan Jose Austin's care: Dr. Sergio Sneed (PCP), Dr. Galen Bhatt, Dr. Jian [...] Order 07/10/2024 - EGD/Colonoscopy: with Dr. Jacob Bear at [facility] Diverticulitis A. Duodenum, biopsy: - Duodenal mucosa [...] to suggest obstruction. 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 Refer to KDIGO guidelines for clinical interpretation. In patients with unstable renal function, e.g. those with acute kidney injury, the eGFRmay not accurately reflect actual GFR. eGFR- Date Value Ref Range Status 12/04/2021 42 Final P.O.C.T. RESULTS: POC done: Yes, See Lab Tab 05/18/24TREATMENT: No Hydration needed. IV SITE: Ambulatory: A peripheral IV was started in the Right forearm with a Angio cath: 22 gauge. IV SITE APPEARANCE: Clean,Dry and Intact SIGNATURE: Linda Laurent RN PATIENT NAME: Juan Jose Austin DATE: June 29, 2024 TIME: 8:03 AM * Margot Smith, RT(R) - 06/29/2024 8:45 AM EDT Radiology Service Progress Note PATIENT NAME: [...] PATIENT PRESENTS WITH AN IMPLANTABLE OR ATTACHED CLAIMS REPRESENTATIVE: No RADIOLOGY DEPARTMENT: CT; Exam(s) Completed: Chest Abdomen Pelvis PERIPHERAL IV DATA: Site assessment: Clean,Dry and Intact, Site disposition Discontinued SIGNED BY: RT Loida(R) June 29, 2024 8:57 AM documented in this encounterBrown Memorial Hospital09-16-2024 NoteHNO ID: [id number] Author: LINDA LAURENT RN Service: ? Author Type: Registered Nurse [...] SITE APPEARANCE: Clean,Dry and Intact SIGNATURE: Linda Laurent RN PATIENT NAME: Juan Jose Austin DATE: June 29, 2024 TIME: 8:03 [facility]09-16-2024 NoteHNO ID: [id number] Author: MARGOT SMITH RT(R) Service: ? Author Type: Technologist Type: Progress Notes Filed: 06/29/2024 08:57 Note Text: Radiology Service Progress Note PATIENT NAME: Juan Jose Autsin DATE OF SERVICE: June 29, 2024 TIME: [...] PATIENT PRESENTS WITH AN IMPLANTABLE OR ATTACHED CLAIMS REPRESENTATIVE: No RADIOLOGY DEPARTMENT: CT; Exam(s) Completed: Chest Abdomen Pelvis PERIPHERAL IV DATA: Site assessment: Clean,Dry and Intact, Site disposition Discontinued SIGNED BY: RT Loida(R) June 29, 2024 8:57 [facility]08-05-2024 Instructions* Patient Instructions* Graeme Vazquez MD - 05/18/2024 1:20 PM EDT Hold pembrolizumab due to colitis Continue weaning steroids CT CAP scans in 6 weeks with labs RTC in 7 weeks documented in this encounterBrown Memorial Hospital08-05-2024 History of Present illness Narrative* Graeme Vazquez MD - 05/18/2024 1:00 PM EDT Images from the original note were not included. NAME: Juan Jose Austin CLINIC NO.: [id number] DATE OF SERVICE: May 18, 2024 (Eve) Some elements in this clinic note that are critical to medical decision making have been carefully reviewed and included from a prior clinic note dated: December 20, 2023 (Wero) Referring Provider: Dr. Galen Bhatt Additional Clinicians involved in Juan Jose Austin's care: Dr. Sergio Sneed (PCP), Dr. Galen Bhatt, Dr. Jian [...] diarrhea. After last infusion, he had a spellof dizziness resulting in a fall and head [...] to suggest obstruction. 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 There is also a stable 6 mm hypervascular focus within the subcapsular dome of segment 8 of the liver which may represent a perfusion anomaly or small vascular anomaly. Stable splenic lesions which are nonspecific on cross-sectional imaging but have been present [id number]. The largest lesion is hypervascular and may [...] abdominal or pelvic processes identified. Distended gallbladder. Ifconcern for acute gallbladder pathology consider ultrasound. 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 08/23/2023 - CT CAP: No evidence of intrathoracic metastases. New 1.6 cm right thyroid nodule. More conspicuous indeterminate 2.7 x 1.0 cm hypodensity in left frontal lobe adjacent to the falciform ligament. Differentialdiagnosis includes area of focal fatty infiltration, perfusion anomaly and other focal hepatic abnormality. Consider continued interval follow-up or further evaluation via MRI. 05/31/2023 - CT CAP: Negative. 03/18/2023 - Permanent pacemaker placed 03/07/2023 - Pembrolizumab resumed with duration changed to every 4 weeks 01/23/2023 - progressive dyspnea held Pembro and started on 5 days of steroids.resolved and resumedtreatment 01/02/2023 - started pembrolizumab - plan for [...] laser. Right ureteral washings with atypical cells. Onedose of mitomycin administered. 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 Right renalwashings positive for high grade urothelial carcinoma 07/03/2018 [...] abnormal bruising. Overall, he is doing well andwishes to proceed with treatment as planned. Updated [...] diarrhea or other GI complaints. He denies he adaches and blurred vision. He complains of dry [...] pacemaker was inserted on on 03/18/2023 at [facility] with Dr. Bautista. His shortness [...] still concerned that he may have pneumonitis dueto immune therapy versus underlying dyspnea from chronic [...] he is a poor candidate for chemotherapy, minto based or otherwise. Surgery would yield him [...] radiology test) CT Chest ABD/PEL-Inject, intravenously, once for1 dose.No IV access, insert saline lock prior [...] both Oral and Rectal, Enteric Tube, Stoma orIndwelling Catheter, Enteric Contrast as designated per enteric [...] which included preparing to see the patient, [id number] patient care, completing clinical documentation, obtaining and/or reviewing separately obtained history, performing a medically appropriate examination, counseling and educating the patient/family/caregiver, ordering medications, tests, or procedures, independently interpreting results (not separately reported), communicating results to the patient/family/caregiver, and care coordination (not separately reported). Graeme Vazquez MD, CPE Hematology and Oncology Services Provided at: [place], [place] CC: Sergio Sneed MD [address] [facility] [id number] documented in this encounterBrown Memorial Hospital08-05-2024 NoteHNO ID: [id number] Author: GRAEME VAZQUEZ MD Service: ? Author Type: Physician Type: Progress Notes Filed: 05/19/2024 11:18 Note Text: NAME: Juan Jose Austin [facility] NO.: [id number] DATE OF SERVICE: May 18, 2024 (Eve) Some elements in this clinic note that are critical to medical decision making have been carefully reviewed and included from a prior clinic note dated: December 20, 2023 (Wero) Referring Provider: Dr. Galen Bhatt Additional Clinicians involved in Juan Jose Austin's care: Dr. Sergio Sneed (PCP), Dr. Galen Bhatt, Dr. Jian [...] to suggest obstruction. 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 [facility]06-17-2024 Telephone encounter Note* Telephone Encounter - Lauren Mckeon RN - 03/30/2024 8:44 AM EDT Call received from pt's family member stating the prednisone script from 03/20 still has not been signed, and pt continues with uncontrollable diarrhea. Daughter states patient has >7 diarrhea stools a day and has tried imodium with no relief. Pt was admitted to [facility] last week with heart issues and those records are available through care everywhere. Stools for cdiff were negative on Ptrefused colonoscopy while admitted... NICOLETTE: please sign script for prednisone that was pended by Elizabeth back on 03/20. Daughter would like this to go to [facility] in [place]. Lauren Mckeon RN [facility] Work Phone: [phone] Miscellaneous Notes* Telephone Encounter - Lauren Mckeon RN - 03/30/2024 8:44 AM EDT Call received from pt's family member stating the prednisone script from 03/20 still has not been signed, and pt continues with uncontrollable diarrhea. Daughter states patient has >7 diarrhea stools a day and has tried imodium with no relief. Pt was admitted to [facility] last week with heart issues and those records are available through care everywhere. Stools for cdiff were negative on Ptrefused colonoscopy while admitted... NICOLETTE: please sign script for prednisone that was pended by Elizabeth back on 03/20. Daughter would like this to go to [facility] in [place]. Lauren Mckeon RN documented in this encounterBrown Memorial Hospital06-07-2024 Telephone encounter Note * Telephone Encounter - Marogt So RN - 03/20/2024 12:14 PM EDT Spoke w/ pt's daughter who reports that the pt has not been taking Prednisone. Dr notified and orders to start Prednisone 10 mg/day. Pt's daughter notified and verbalizes understanding. Will call back if his symptoms persist. Nicolette: Rx pended. Margot So RN [facility] Work Phone: [phone] Miscellaneous Notes* Telephone Encounter - Margot So RN - 03/20/2024 12:14 PM EDT Spoke w/ pt's daughter who reports that the pt has not been taking Prednisone. notified and orders to start Prednisone 10 mg/day. Pt's daughter notified and verbalizes understanding. Will call back if his symptoms persist. Nicolette: Rx pended. Margot So RN * Telephone Encounter - Graeme Vazquez MD - 03/20/2024 11:41 AM EDT I think it is very possible - is he still on the prednisone 20 we show in his med list? Of course he's also been in and out of hospitals it looks like so could still be unrelated. Could try a shot of decadron if he's able to come in. Also could try octreotide if GI clears him. * Telephone Encounter - Margot So RN - 03/20/2024 10:52 AM EDT Spoke w/ pt's daughter, Britt, who reports [...] his symptoms could be a delayed effect? Margot So, RN * Telephone Encounter - Edwina Olson - 03/20/2024 10:37 AM EDT Patient's daughter, Britt, left message on my voicemail to cancel today's appointment because patient is having issues . Call placed to Britt to reschedule, she did not answer and unable to leave a VM. [phone] Edwina Olson documented in this encounterBrown Memorial Hospital06-07-2024 Telephone encounter Note * Telephone Encounter - Graeme Vazquez MD - 03/20/2024 11:41 AM EDT I think it is very possible - is he still on the prednisone 20 we show in his med list? Of course he's also been in and out of hospitals it looks like so could still be unrelated. Could try a shot of decadron if he's able to come in. Also could try octreotide if GI clears him. [facility]06-07-[facility] Telephone encounter Note* Telephone Encounter - Margot So RN - 03/20/2024 10:52 AM EDT Spoke w/ pt's daughter, Britt, who reports [...] his symptoms could be a delayed effect? Margot So, RN [facility]06-07-2024 Telephone encounter Note* Telephone Encounter - Edwina Olson - 03/20/2024 10:37 AM EDT Patient's daughter, Britt, left message on my voicemail to cancel today's appointment because patient is having issues . Call placed to Britt to reschedule, she did not answer and unable to leave a VM. [phone] Edwina Olson [facility]04-23-2024 Telephone encounter Note* Telephone Encounter - Edwina Olson - 02/04/2024 8:53 AM EDT Patient called back and has been scheduled with NICOLETTE and possible treatment tomorrow, 02/04. Patient is all set, Thanks! Edwina Olson [facility]04-23-2024 Miscellaneous Notes* Telephone Encounter - Edwina Olson - 02/04/2024 8:53 AM EDT Patient called back and has been scheduled with NICOLETTE and possible treatment tomorrow, 02/04. Patient is all set, Thanks! Edwina Olson * Telephone Encounter - Edwina Olson - 02/03/2024 3:44 PM EDT Attempted to contact patient again, no answer. Left another detailed message. Edwina Olson * Telephone Encounter - Edwina Olson - 01/31/2024 4:19 PM EDT Call placed to patient, no answer. Left message on voicemail to call back to reschedule. Edwina Olson * Telephone Encounter - Margot So, SUNIL - 01/31/2024 11:25 AM EDT Clerical: Pt forgot about today's appointment. Offered to have him come in this afternoon instead. Pt would prefer to reschedule to a different day. Margot So, RN * Telephone Encounter - Skylar John - 01/31/2024 11:18 AM EDT Patient was a no show for his follow up with NICOLETTE & his treatment. Skylar John documented in this encounterBrown Memorial Hospital04-22-2024 Telephone encounter Note * Telephone Encounter - Edwina Olson - 02/03/2024 3:44 PM EDT Attempted to contact patient again, no answer. Left another detailed message. Edwina Olson [facility]04-19-2024 Telephone encounter Note* Telephone Encounter - Edwina Olson - 01/31/2024 4:19 PM EDT Call placed to patient, no answer. Left message on voicemail to call back to reschedule. Edwina Olson [facility]04-19-2024 Telephone encounter Note* Telephone Encounter - Margot So RN - 01/31/2024 11:25 AM EDT Clerical: Pt forgot about today's appointment. Offered to have him come in this afternoon instead. Pt would prefer to reschedule to a different day. Margot So RN [facility] Work Phone: 1([phone]) 930-248504-19-2024 Telephone encounter Note* Telephone Encounter - Skylar John - 01/31/2024 11:18 AM EDT Patient was a no show for his follow up with NICOLETTE & his treatment. Skylar John [facility]04-12-2024 History of Present illness Narrative* Margot Smith RT(R) - 01/24/2024 12:15 PM EDT Radiology Service Progress Note PATIENT [...] PATIENT PRESENTS WITH AN IMPLANTABLE OR ATTACHED CLAIMS REPRESENTATIVE: No RADIOLOGY DEPARTMENT: CT; Exam(s) Completed: Chest Abdomen Pelvis With IV and Oral contrast PERIPHERAL IV DATA: Site assessment: Clean,Dry and Intact, Site disposition Discontinued SIGNED BY: RT Loida(R) January 24, 2024 12:16 PM documented in this encounterBrown Memorial Hospital03-08-2024 History of Present illness Narrative* Patricia Conteh, MARSHA.ARBORICULTURE INSTRUCTOR - 12/20/2023 1:16 PM EST Images from the original note were not included. NAME: Juan Jose Austin CLINIC NO.: [id number] DATE OF SERVICE: December 20, 2023 (Wero) Some elements in this clinic note that are critical to medical decision making have been carefully reviewed and included from a prior clinic note dated: November 29, 2023. (Dr. Vazquez) Referring Provider: Dr. Galen Bhatt Additional Clinicians involved in Juan Jose Austin's care: Dr. Sergio Sneed (PCP), Dr. Galen Bhatt, Dr. Jian [...] diarrhea. After last infusion, he had a spellof dizziness resulting in a fall and head [...] abdominal or pelvic processes identified. Distended gallbladder. Ifconcern for acute gallbladder pathology consider ultrasound. 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 08/23/2023 - CT CAP: No evidence of intrathoracic metastases. New 1.6 cm right thyroid nodule. More conspicuous indeterminate 2.7 x 1.0 cm hypodensity in left frontal lobe adjacent to the falciform ligament. Differentialdiagnosis includes area of focal fatty infiltration, perfusion anomaly and other focal hepatic abnormality. Consider continued interval follow-up or further evaluation via MRI. 05/31/2023 - CT CAP: negative. 03/18/2023 - Permanent pacemaker placed 03/07/2023 - Pembrolizumab resumed with duration changed to every 4 weeks 01/23/2023 - progressive dyspnea held Pembro and started on 5 days of steroids.resolved and resumedtreatment 01/02/2023 - started pembrolizumab - plan for [...] laser. Right ureteral washings with atypical cells. Onedose of mitomycin administered. 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 Right renalwashings positive for high grade urothelial carcinoma 07/03/2018 [...] abnormal bruising. Overall, he is doing well andwishes to proceed with treatment as planned. Updated [...] diarrhea or other GI complaints. He denies he adaches and blurred vision. He complains of dry [...] pacemaker was inserted on on 03/18/2023 at [facility] with Dr. Bautista. His shortness [...] still concerned that he may have pneumonitis dueto immune therapy versus underlying dyspnea from chronic [...] he is a poor candidate for chemotherapy, minto based or otherwise. Surgery would yield him [...] Resp 16 Ht 5' 4.016 (1.63m) Wt 139lb 1.8 oz (63.1kg) SpO2 97% BMI 23.87 [...] radiology test) CT Chest ABD/PEL-Inject, intravenously, once for1 dose.No IV access, insert saline lock prior to the beginning of sedation, infusion, injection of imaging exam. Discontinue saline lock post exam. If Pt. has a central line or IVAD, may access for administration according to line specific nursing protocol. Once exam is complete flush line and de-access according to line specific nursing protocol in the CT contrast administration guidelines link.(Patient not taking: Reported on 10/10/2023) losartan (COZAAR) [...] Anesthesia Problems No Family History Patricia Conteh APRN.ARBORICULTURE INSTRUCTOR Hematology and Oncology Services Provided at: [place], [place] CC: Sergio Sneed MD [address] [facility] [id number] I spent a total of 30 minutes on the date of the service which included preparing to see the patient, [id number] patient care, completing clinical documentation, obtaining and/or reviewing separately obtained history, performing a medically appropriate examination, counseling and educating the pat ient/family/caregiver, ordering medications, tests, or procedures, independently interpreting results (not separately reported), and communicating results to the patient/family/caregiver. documented in this encounterBrown Memorial Hospital03-08-2024 Nurse Note* Jami Bates MA - 12/20/2023 1:10 PM EST Patient state that he has been losing weight, he has no desire to eat, nothing tastes good he has to force himself to eat. Jami Hernandez MA documented in this encounterBrown Memorial Hospital02-16-2024 History of Present illness Narrative* Graeme Vazquez MD - 11/29/2023 1:15 PM EST Images from the original note were not included. NAME: Juan Jose Austin [facility] NO.: [id number] DATE OF SERVICE: November 29, 2023 (Eve) Some elements in this clinic note that are critical to medical decision making have been carefully reviewed and included from a prior clinic note dated: October 10, 2023 (Eve) Referring Provider: Dr. Galen Bhatt Additional Clinicians involved in Juan Jose Austin's care: Dr. Sergio Sneed (PCP), Dr. Galen Bhatt, Dr. Jian [...] diarrhea. After last infusion, he had a spellof dizziness resulting in a fall and head [...] Patricia or Corazon RTC 6 weeks with pr Labs same day HPI: CASE HISTORY: Reverse Chronological Order 11/05/2023 - XR Abdomen: Nonobstructive bowel gas pattern. US RUQ: 2.4cm echogenic focus in the right hepatic lobe, nonspecific possibly a hemangioma 11/02/2023 - CT A/P: No definitive evidence of acute abdominal or pelvic processes identified. Distended gallbladder. Ifconcern for acute gallbladder pathology consider ultrasound. 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 08/23/2023 - CT CAP: No evidence of intrathoracic metastases. New 1.6 cm right thyroid nodule. More conspicuous indeterminate 2.7 x 1.0 cm hypodensity in left frontal lobe adjacent to the falciform ligament. Differentialdiagnosis includes area of focal fatty infiltration, perfusion anomaly and other focal hepatic abnormality. Consider continued interval follow-up or further evaluation via MRI. 05/31/2023 - CT CAP: negative. 03/18/2023 - Permanent pacemaker placed 03/07/2023 - Pembrolizumab resumed with duration changed to every 4 weeks 01/23/2023 - progressive dyspnea held Pembro and started on 5 days of steroids.resolved and resumedtreatment 01/02/2023 - started pembrolizumab - plan for [...] laser. Right ureteral washings with atypical cells. Onedose of mitomycin administered. 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 Right renalwashings positive for high grade urothelial carcinoma 07/03/2018 [...] abnormal bruising. Overall, he is doing well andwishes to proceed with treatment as planned. Updated [...] recurrence. Updated Visit, July 18, 2023: Dr. Hoy checked his thyroid out and it is [...] diarrhea or other GI complaints. He denies he adaches and blurred vision. He complains of dry [...] pacemaker was inserted on on 03/18/2023 at [facility] with Dr. Bautista. His shortness [...] still concerned that he may have pneumonitis dueto immune therapy versus underlying dyspnea from chronic [...] he is a poor candidate for chemotherapy, minto based or otherwise. Surgery would yield him [...] radiology test) CT Chest ABD/PEL-Inject, intravenously, once for1 dose.No IV access, insert saline lock prior to the beginning of sedation, infusion, injection of imaging exam. Discontinue saline lock post exam. If Pt. has a central line or IVAD, may access for administration according to line specific nursing protocol. Once exam is complete flush line and de-access according to line specific nursing protocol in the CT contrast administration guidelines link.(Patient not taking: Reported on 10/10/2023) isosorbide mononitrate [...] which included preparing to see the patient, [id number] patient care, completing clinical documentation, performing a medically appropriate examination, counseling and educating the patient/family/caregiver, ordering medications, tests, or procedures, independently interpreting results (not separately reported), communicating results to the patient/family/caregiver, and care coordination (not separately reported). Graeme Vazquez MD, CPE Hematology and Oncology Services Provided at: [place], [place] Scribe Attestation: This note was scribed by Jessica Pathak on November 29, 2023 under the direction and supervisionof Dr. Graeme Vazquez. I attest that all of the information documented is correct to the best of my knowledge. Provider Attestation: I, Graeme Vazquez MD, attest that all information documented by the above scribe is correct, and was supervised by me and under my direction. CC: Sergio Sneed MD [id number] [facility] [id number] documented in this encounterBrown Memorial Hospital02-16-2024 Instructions* Patient Instructions* Jessica Pathak - 11/29/2023 1:14 PM EST Proceed with pembrolizumab cycle 13 today. Hydration today. Follow up in 3 weeks for continued treatment. Labs same day. See Patricia Chandra RTC 6 weeks with pr Labs same day documented in this encounterBrown Memorial Hospital02-09-2024 Miscellaneous Notes* Telephone Encounter - Edwina Olson - 11/22/2023 1:13 PM EST Patient has been rescheduled to 11/29 and notified. Thanks! Edwina Olson * Telephone Encounter - Margot So RN - 11/22/2023 12:48 PM EST Voicemail message received from pt requesting to reschedule his missed appointment w/ Dr Vazquez. Clerical: Please call pt @ [phone] to schedule. Thanks! Margot So RN * Telephone Encounter - Margot So RN - 11/21/2023 4:06 PM EST Pt still in need of f/u appointment. Call placed to pt. No answer. Message left requesting call back. Call placed to pt's spouse. No answer. Message left requesting call back. Margot So RN documented in this encounterBrown Memorial Hospital02-01-2024 Miscellaneous Notes* Telephone Encounter - Elizabeth Beltrán HUC - 11/14/2023 2:25 PM EST Patient called, saying he had a missed call from us(not sure who called him). Patient stated that he was not going to make his appointments today as he was just discharged from the hospital yesterdayand they are having him do a MRI(?). And He stated he will call back to reschedule these appointments. HU Moore documented in this encounterBrown Memorial Hospital11-16-2023 History of Present illness Narrative* Graeme Vazquez MD - 08/29/2023 1:30 PM EST Images from the original note were not included. NAME: Juan Jose Austin NO.: [id number] DATE OF SERVICE: August 29, 2023 (Eve) Some elements in this clinic note that are critical to medical decision making have been carefully reviewed and included from a prior clinic note dated: July 18, 2023 (Eve). Referring Provider: Galen Bhatt Additional Clinicians involved in Juan Jose Austin's care: Dr. Sergio Sneed (PCP), Dr. Galen Bhatt, Dr. Jian [...] diarrhea. After last infusion, he had a spellof dizziness resulting in a fall and head injury. we have discussed to hold off on any further chemotherapy at this time. With recent dose reduction and delays, we do not think the benefits of additional chemotherapy would justify the risks. He was started on maintenance immunotherapy with pembrolizumab on 01/02/2023. He had episodes of shortness of breath which we ruled out pneumonitis. Shortnessof breath and syncopal episodes were found to [...] includes area of focal fatty infiltration, perfusion anomalyand other focal hepatic abnormality. Consider continued interval follow-up or further evaluation via MRI. 05/31/2023 - CT CAP - negative. 03/18/2023 - Permanent pacemaker placed 03/07/2023 - Pembrolizumab resumed with duration changed to every 4 weeks 01/23/2023 - progressive dyspnea held Pembro and started on 5 days of steroids.resolved and resumedtreatment 01/02/2023 - started pembrolizumab - plan for [...] laser. Right ureteral washings with atypical cells. Onedose of mitomycin administered. 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 Right renalwashings positive for high grade urothelial carcinoma 07/03/2018 [...] Updated Visit, June 27, 2023: Juan Jose Ausitn returns for follow-up and continued treatment with [...] diarrhea or other GI complaints. He denies he adaches and blurred vision. He complains of dry [...] pacemaker was inserted on on 03/18/2023 at [facility] with Dr. Bautista. His shortness [...] still concerned that he may have pneumonitis dueto immune therapy versus underlying dyspnea from chronic [...] he is a poor candidate for chemotherapy, minto based or otherwise. Surgery would yield him [...] Resp 18 Ht 5' 4.016 (1.63m) Wt 167lb (75.8kg) SpO2 97% BMI 28.65 kg/(m^2). Body [...] radiology test) CT Chest ABD/PEL-Inject, intravenously, once for1 dose.No IV access, insert saline lock prior [...] which included preparing to see the patient, [id number] patient care, completing clinical documentation, performing a medically appropriate examination, counseling and educating the patient/family/caregiver, ordering medications, tests, or p rocedures, independently interpreting results (not separately reported), communicating results to the patient/family/caregiver, and care coordination (not separately reported). Graeme Vazquez MD, CPE Hematology and Oncology Services Provided at: [place], [place] CC: No referring provider defined for this encounter. Sergio Sneed MD [facility] [facility] [phone] documented in this encounterBrown Memorial Hospital11-16-2023 Instructions* Patient Instructions* Graeme Vazquez MD - 08/29/2023 1:07 PM EST [...] can restart his Keytruda. documented in this encounterBrown Memorial Hospital11-10-2023 History of Present illness Narrative* Shannan Castelan RN - 08/23/2023 10:15 AM EST Radiology Service Progress Note DATE OF SERVICE: [...] creatinine assay has traceable calibration to isotope dilution- mass spectrometry. Refer to KDIGO guidelines for clinical interpretation. In patients with unstable renal function, e.g. those with acute kidney injury, the eGFRmay not accurately reflect actual GFR. eGFR- Date [...] DATE: August 23, 2023 TIME: 9:26 AM * Margot Smith, RT(R) - 08/23/2023 10:15 AM EST Radiology Service Progress Note PATIENT NAME: Juan [...] 23, 2023 9:43 AM documented in this encounterBrown Memorial Hospital10-26-2023 Miscellaneous Notes* Telephone Encounter - Margot So RN - 08/08/2023 11:55 AM EDT FYI: Pt reports having a sore throat [...] noted. Margot So RN documented in this encounterBrown Memorial Hospital10-05-2023 Instructions* Patient Instructions* Graeme Vazquez MD - 07/18/2023 1:39 PM EDT Proceed with cycle 9 pembrolizumab today. In 3 weeks to for cycle 10. Labs prior No clinician RTC in 6 weeks prior to C11 Labs every [address] in 5 weeks documented in this encounterBrown Memorial Hospital10-05-2023 History of Present illness Narrative* Graeme Vazquez MD - 07/18/2023 1:30 PM EDT Images from the original note were not included. ONCOLOGY FOLLOW UP July 18, 2023 (Eve) Some elements in this clinic note that are critical to medical decision making have been carefully reviewed and included from a prior clinic note dated: June 27, 2023 (Wero) PCP and other physicians involved in patient's care: Dr. Sergio Sneed (PCP), Dr. Galen Bhatt, Dr. Jian [...] started on 5 days of steroids.resolved and resumedtreatment 03/07/2023 - Pembrolizumab resumed with duration changed [...] diarrhea or other GI complaints. He denies he adaches and blurred vision. He complains of dry [...] pacemaker was inserted on on 03/18/2023 at [facility] with Dr. Bautista. His shortness [...] still concerned that he may have pneumonitis dueto immune therapy versus underlying dyspnea from chronic [...] he is a poor candidate for chemotherapy, minto based or otherwise. Surgery would yield him [...] Ht 162.6 cm (5' 4.02 ) Wt 80.7kg (178 lb) SpO2 96% BMI 30.54 kg/m [...] diarrhea. After last infusion, he had a spellof dizziness resulting in a fall and head injury. we have discussed to hold off on any further chemotherapy at this time. With recent dose reduction and delays, we do not think the benefits of additional chemotherapy would justify the risks. He was started on maintenance immunotherapy with pembrolizumab on 01/02/2023. He had episodes of shortness of breath which we ruled out pneumonitis. Shortnessof breath and syncopal episodes were found to [...] radiology test) CT Chest ABD/PEL-Inject, intravenously, once for1 dose.No IV access, insert saline lock prior [...] which included preparing to see the patient, [id number]-glad patient care, completing clinical documentation, performing a medically appropriate examination, counseling and educating the patient/family/caregiver, ordering medications, tests, or p rocedures, independently interpreting results (not separately reported), communicating results to the patient/family/caregiver, and care coordination (not separately reported). Graeme Vazquez MD, CPE Hematology and Oncology Services Provided at: [place], [place] CC: No referring provider defined for this encounter. Sergio Sneed MD [facility] [facility] [id number] documented in this encounterBrown Memorial Hospital09-14-2023 History of Present illness Narrative* Patricia Conteh APRN.[employer] IN[employer]CTOR - 06/27/2023 1:20 PM EDT ONCOLOGY FOLLOW UP June 27, 2023 (Wero) Some elements in this clinic note that are critical to medical decision making have been carefully reviewed and included from a prior clinic note dated: June 06, 2023. (Dr. Vazquez) PCP and other physicians involved in patient's care: Dr. Sergio Sneed (PCP), Dr. Galen Bhatt, Dr. Jian [...] started on 5 days of steroids.resolved and resumedtreatment 03/07/2023 - Pembrolizumab resumed with duration changed [...] diarrhea or other GI complaints. He denies he adaches and blurred vision. He complains of dry [...] pacemaker was inserted on on 03/18/2023 at [facility] with Dr. Bautista. His shortness [...] still concerned that he may have pneumonitis dueto immune therapy versus underlying dyspnea from chronic [...] he is a poor candidate for chemotherapy, minto based or otherwise. Surgery would yield him [...] diarrhea. After last infusion, he had a spellof dizziness resulting in a fall and head injury. we have discussed to hold off on any further chemotherapy at this time. With recent dose reduction and delays, we do not think the benefits of additional chemotherapy would justify the risks. He was started on maintenance immunotherapy with pembrolizumab on 01/02/2023. He had episodes of shortness of breath which we ruled out pneumonitis. Shortnessof breath and syncopal episodes were found to be cardiac related and a pacemaker was placed on 03/18/2023. Unfortunately he has persisting disease. NGS. Was unrevealing. No evidence of pneumonitis on imaging. PLAN: Proceed with cycle 8 pembrolizumab today. Follow up in 3 weeks to for cycle 9. Labs prior. Patricia Conteh APRN.CNP Hematology and Oncology Services Provided at: [place], [place] I spent a total of 30 minutes on the date of the service which included preparing to see the patient, vmbh-[id number]-rbil patient care, completing clinical documentation, obtaining and/or reviewing separately obtained history, performing a medically appropriate examination, counseling and educating the pat ient/family/caregiver, ordering medications, tests, or procedures, independently interpreting results (not separately reported), and communicating results to the patient/family/caregiver. documented in this encounterBrown Memorial Hospital09-05-2023 History of Present illness Narrative* Galen Bhatt MD - 06/18/2023 2:50 PM EDT VIRTUAL VISIT PROGRESS NOTE This is a virtual visit using Audio only. It required patient-provider interaction for the medical decision making as documented below. I have communicated my name and active licensure. The patient's identity and physical location wereverified at the time of this visit. Either the patient or their legal senior patient account representative has been informed of the risks and benefits of -- and alternatives to -- treatment through a remote evaluation andconsents to proceed with the evaluation remotely. HPI: [...] started on 5 days of steroids.resolved and resumedtreatment 03/07/2023 - Pembrolizumab resumed with duration changed to every 4 weeks 03/18/2023 Permanent pacemaker placed 05/31/2023 CT CAP - negative. IMAGING 05/31/2023: CT abdomen and Pelvis 1. New indeterminate 5 mm enhancing focus in the dome of the liver. Differential diagnosis includesperfusion phenomenon and other infectious/inflammatory etiologies. Subtle neoplasm [...] radiology test) CT Chest ABD/PEL-Inject, intravenously, once for1 dose.No IV access, insert saline lock prior [...] both Oral and Rectal, Enteric Tube, Stoma orIndwelling Catheter, Enteric Contrast as designated per enteric [...] Dr. Sandy Bhatt MD documented in this encounterBrown Memorial Hospital08-24-2023 History of Present illness Narrative* Graeme Vazquez MD - 06/06/2023 2:06 PM EDT Images from the original note were not included. ONCOLOGY FOLLOW UP June 06, 2023 (Eve) Some elements in this clinic note that are critical to medical decision making have been carefully reviewed and included from a prior clinic note dated: May 16, 2023 (Eve) PCP and other physicians involved in patient's care: Dr. Sergio Sneed (PCP), Dr. Galen Bhatt, Dr. Jian [...] started on 5 days of steroids.resolved and resumedtreatment 03/07/2023 - Pembrolizumab resumed with duration changed [...] diarrhea or other GI complaints. He denies he adaches and blurred vision. He complains of dry [...] pacemaker was inserted on on 03/18/2023 at [facility] with Dr. Bautista. His shortness [...] still concerned that he may have pneumonitis dueto immune therapy versus underlying dyspnea from chronic [...] he is a poor candidate for chemotherapy, minto based or otherwise. Surgery would yield him [...] Ht 162.6 cm (5' 4.02 ) Wt 80.5kg (177 lb 6.4 oz) SpO2 99% BMI [...] diarrhea. After last infusion, he had a spellof dizziness resulting in a fall and head injury. we have discussed to hold off on any further chemotherapy at this time. With recent dose reduction and delays, we do not think the benefits of additional chemotherapy would justify the risks. He was started on maintenance immunotherapy with pembrolizumab on 01/02/2023. He had episodes of shortness of breath which we ruled out pneumonitis. Shortnessof breath and syncopal episodes were found to [...] which included preparing to see the patient, [id number]-sb-[id number] patient care, completing clinical documentation, performing a medically appropriate examination, counseling and educating the patient/family/caregiver, ordering medications, tests, or p rocedures, and independently interpreting results (not separately reported). Graeme Vazquez MD, CPE Hematology and Oncology Services Provided at: [place], [place] documented in this encounterBrown Memorial Hospital08-18-2023 Miscellaneous Notes* Telephone Encounter - Jazmine Lopez - 05/31/2023 12:21 PM EDT Requested Prescriptions Pending Prescriptions Disp Refills tamsulosin (FLOMAX) 0.4 mg 30 capsule 5 Sig: Take 1 capsule by mouth once daily. DAUGHTER STATES PATIENT IS OUT OF PILLS documented in this encounterBrown Memorial Hospital08-18-2023 History of Present illness Narrative* Shannan Castelan RN - 05/31/2023 10:15 AM EDT Radiology Service Progress Note DATE [...] creatinine assay has traceable calibration to isotope dilution- mass spectrometry. Refer to KDIGO guidelines for clinical interpretation. In patients with unstable renal function, e.g. those with acute kidney injury, the eGFRmay not accurately reflect actual GFR. eGFR- Date Value Ref Range Status 12/04/2021 42 Final P.O.C.T. RESULTS: N/A May 31, 2023 TREATMENT: N/A IV SITE: Ambulatory: A peripheral IV was started in the Left antecubital site with a Angio cath: 20gauge. IV SITE APPEARANCE: Clean,Dry and Intact SIGNATURE: Shannan Castelan RN PATIENT NAME: Juan Jose Austin DATE: May 31, 2023 TIME: 9:19 AM * Margot Smith RT(R) - 05/31/2023 10:15 AM EDT Radiology Service Progress Note PATIENT NAME: [...] 31, 2023 11:24 AM documented in this encounterBrown Memorial Hospital08-03-2023 Instructions* Patient Instructions* Graeme Vazquez MD - 05/16/2023 2:[address] CAP in 1 -2 weeks Reschedule appointment with Dr. Bhatt after CT. Proceed with cycle 6 pembrolizumab today. Follow up in 3 weeks to for cycle 7. Labs prior. Review Scans Hold Lasix for a few days to see if mouth improves. documented in this encounterBrown Memorial Hospital08-03-2023 History of Present illness Narrative* Graeme Vazquez MD - 05/16/2023 1:45 PM EDT Images from the original note were not included. ONCOLOGY FOLLOW UP May 16, 2023 (Eve) Some elements in this clinic note that are critical to medical decision making have been carefully reviewed and included from a prior clinic note dated:April 25, 2023 (Wero) PCP and other physicians involved in patient's care: Dr. Sergio Sneed (PCP), Dr. Galen Bhatt, Dr. Jian [...] started on 5 days of steroids.resolved and resumedtreatment 03/07/2023 - Pembrolizumab resumed with duration changed [...] diarrhea or other GI complaints. He denies he adaches and blurred vision. He complains of dry [...] pacemaker was inserted on on 03/18/2023 at [facility] with Dr. Bautista. His shortness [...] still concerned that he may have pneumonitis dueto immune therapy versus underlying dyspnea from chronic [...] he is a poor candidate for chemotherapy, minto based or otherwise. Surgery would yield him [...] Ht 162.6 cm (5' 4.02 ) Wt 80.6kg (177 lb 12.8 oz) SpO2 100% BMI [...] diarrhea. After last infusion, he had a spellof dizziness resulting in a fall and head injury. we have discussed to hold off on any further chemotherapy at this time. With recent dose reduction and delays, we do not think the benefits of additional chemotherapy would justify the risks. He was started on maintenance immunotherapy with pembrolizumab on 01/02/2023. He had episodes of shortness of breath which we ruled out pneumonitis. Shortnessof breath and syncopal episodes were found to [...] which included preparing to see the patient, [id number] patient care, completing clinical documentation, performing a medically appropriate examination, counseling and educating the patient/family/caregiver, ordering medications, tests, or p rocedures, and independently interpreting results (not separately reported). Graeme Vazquez MD, CPE Hematology and Oncology Services Provided at: [place], [place] documented in this encounterBrown Memorial Hospital07-25-2023 History of Present illness Narrative* Galen Bhatt MD - 05/07/2023 3:10 PM EDT s documented in this encounterBrown Memorial Hospital07-13-2023 History of Present illness Narrative* Patricia Conteh APRN.CNP - 04/25/2023 1:30 PM EDT Images from the original note were not included. ONCOLOGY FOLLOW UP April 25, 2023 (Wero) Some elements in this clinic note that are critical to medical decision making have been carefully reviewed and included from a prior clinic note dated: April 04, 2023. (Wero) PCP and other physicians involved in patient's care: Dr. Sergio Sneed (PCP), Dr. Galen Bhatt, Dr. Jian [...] started on 5 days of steroids.resolved and resumedtreatment 03/07/2023 - Pembrolizumab resumed with duration changed [...] diarrhea or other GI complaints. He denies he adaches and blurred vision. He complains of dry [...] pacemaker was inserted on on 03/18/2023 at [facility] with Dr. Bautista. His shortness [...] still concerned that he may have pneumonitis dueto immune therapy versus underlying dyspnea from chronic [...] he is a poor candidate for chemotherapy, minto based or otherwise. Surgery would yield him [...] Ht 162.6 cm (5' 4.02 ) Wt 80.7kg (178 lb) SpO2 97% BMI 30.54 kg/m [...] diarrhea. After last infusion, he had a spellof dizziness resulting in a fall and head injury. we have discussed to hold off on any further chemotherapy at this time. With recent dose reduction and delays, we do not think the benefits of additional chemotherapy would justify the risks. He was started on maintenance immunotherapy with pembrolizumab on 01/02/2023. He had episodes of shortness of breath which we ruled out pneumonitis. Shortnessof breath and syncopal episodes were found to be cardiac related and a pacemaker was placed on 03/18/2023. Unfortunately he has persisting disease. NGS. Was unrevealing. No evidence of pneumonitis on imaging. PLAN: Proceed with cycle 5 pembrolizumab today. Follow up in 3 weeks to for cycle 6. Labs prior. 3. When he returns we will need to discuss when to restage. Patricia Conteh APRN.[facility] Hematology and Oncology Services Provided at: [facility], [place], [place] I spent a total of 30 minutes on the date of the service which included preparing to see the patient, [id number] patient care, completing clinical documentation, obtaining and/or reviewing separately obtained history, performing a medically appropriate examination, counseling and educating the pat ient/family/caregiver, ordering medications, tests, or procedures, independently interpreting results (not separately reported), and communicating results to the patient/family/caregiver. documented in this encounterBrown Memorial Hospital06-22-2023 History of Present illness Narrative* Patricia Conteh APRN.CNP - 04/04/2023 11:00 AM EDT Images from the original note were not included. ONCOLOGY FOLLOW UP April 04, 2023 ([place]) Some elements in this clinic note that are critical to medical decision making have been carefully reviewed and included from a prior clinic note dated: March 07, 2023. (Dr. Vazquez) PCP and other physicians involved in patient's care: Dr. Sergio Sneed (PCP), Dr. Galen Bhatt, Dr. Jian [...] started on 5 days of steroids.resolved and resumedtreatment 03/07/2023 - Pembrolizumab resumed with duration changed to every 4 weeks 03/18/2023 Permanent pacemaker placed Updated Visit, April 04, 2023: Juan Jose Austin returns for follow-up. Since his last visit he had a pacemaker placed due to syncopal episodes. The pacemaker was inserted on on 03/18/2022 at [facility] with Dr. Bautista. His shortness [...] still concerned that he may have pneumonitis dueto immune therapy versus underlying dyspnea from chronic [...] he is a poor candidate for chemotherapy, minto based or otherwise. Surgery would yield him [...] Ht 162.6 cm (5' 4.02 ) Wt 80.3kg (177 lb) SpO2 97% BMI 30.37 kg/m [...] APRN.CNP Hematology and Oncology Services Provided at: [place], [place] I spent a total of 30 minutes on the date of the service which included preparing to see the patient, mafk-nz-fqug patient care, completing clinical documentation, obtaining and/or reviewing separately obtained history, performing a medically appropriate examination, counseling and educating the pat ient/family/caregiver, ordering medications, tests, or procedures, independently interpreting results (not separately reported), and communicating results to the patient/family/caregiver. 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 Pt reports that his dyspnea is only on exertion. Denies feeling short of breath at rest. Pt was outside working in his flower beds and mulching during our call. Margot So RN * Telephone Encounter - Mary Jo Fierro Sec - 01/31/2023 8:[address] Nicolette Johnson would like you to call Juan Jose next week. 02-07 to check symptoms. Thank you documented in this encounterBrown Memorial Hospital04-20-2023 History of Present illness Narrative* Padmini Mike RN - 01/31/2023 9:22 AM EDT No labs today per Dr. Vazquez. Padmini Mike RN documented in this encounterBrown Memorial Hospital04-20-2023 Instructions* Patient Instructions* Graeme Vazquez MD - 01/31/2023 8:50 AM EDT Resume C2 pembrolizumab today. RTC in 3 weeks Ask Ms. So to call next week to heck symptoms documented in this encounterBrown Memorial Hospital04-20-2023 History of Present illness Narrative* Graeme Vazquez MD - 01/31/2023 8:44 AM EDT Images from the original note were not included. ONCOLOGY FOLLOW UP January 31, 2023 (Eve) Some elements in this clinic note that are critical to medical decision making have been carefully reviewed and included from a prior clinic note dated: January 23, 2023 ([place]) PCP and other physicians involved in patient's care: Sergio Sneed (PCP), Jian Kay DIAGNOSIS: Upper urothelial [...] he is a poor candidate for chemotherapy, minto based or otherwise. Surgery would yield him [...] 16 Ht 162.6 cm (5' 4.02 ) Wt82.2 kg (181 lb 3.2 oz) SpO2 97% [...] which included preparing to see the patient, ejsq-zs-pvwi patient care, completing clinical documentation, performing a medically appropriate examination, counseling and educating the patient/family/caregiver, ordering medications, tests, or p rocedures, communicating with other HCPs (not separately reported), independently interpreting results (not separately reported), and communicating results to the patient/family/caregiver. Graeme Vazquez MD, CPE Hematology and Oncology Services Provided at: [place], [place] documented in this encounterBrown Memorial Hospital04-12-2023 History of Present illness Narrative* Margot Smith, RT(R) - 01/23/2023 3:15 PM EDT Radiology [...] IV DATA: Not applicable SIGNED BY: RT Loida(R) January 23, 2023 3:07 PM documented in this encounterBrown Memorial Hospital03-28-2023 Miscellaneous Notes* Telephone Encounter - Margot So [...] protocol. Margot So RN documented in this encounterBrown Memorial Hospital03-22-2023 Instructions* Patient Instructions* Graeme Vazquez MD - 01/02/2023 3:18 PM EDT Start Keytruda q 3 weeks Labs same day. RTC 3 weeks with Patricia / Corazon Owens documented in this encounterBrown Memorial Hospital03-22-2023 History of Present illness Narrative* Graeme Vazquez MD - 01/02/2023 3:11 PM EDT Images from the original note were not included. ONCOLOGY FOLLOW UP January 02, 2023 (Eve) Some elements in this clinic note that are critical to medical decision making have been carefully reviewed and included from a prior clinic note dated: December 24, 2022 (Eve) PCP and other physicians involved in patient's care: Sergio Sneed (PCP), Jian Kay DIAGNOSIS: Upper urothelial [...] he is a poor candidate for chemotherapy, minto based or otherwise. Surgery would yield him [...] Labs same day. RTC 3 weeks with Patrciia / Corazon Owens I spent a total of 30 minutes on the date of the service which included preparing to see the patient, bsgx-ls-jpgg patient care, completing clinical documentation, obtaining and/or reviewing separately obtained history, counseling and educating the patient/family/caregiver, ordering medications, edin ts, or procedures, independently interpreting results (not separately reported), and communicating results to the patient/family/caregiver. Graeme Vazquez MD, CPE Hematology and Oncology Services Provided at: [place], [place] documented in this encounterBrown Memorial Hospital03-22-2023 Nurse Note* Liberty Hayes - 01/02/2023 3:08 PM EDT Pt requested recent blood work faxed to Dr. Sneed. Faxed via [employer]. Liberty Hayes documented in this encounterBrown Memorial Hospital03-20-2023 History of Present illness Narrative* Margot [...] N/A Margot So RN documented in this encounterBrown Memorial Hospital03-08-2023 Miscellaneous Notes* Telephone Encounter - Olive Alarcon MD - 12/19/2022 8:54 AM EST Patient cancelled Nephrology appt for 12/20/22. Called patient, plan to get labs in the coming days to ensure continued improvement of Cr. documented in this encounterBrown Memorial Hospital03-06-2023 Miscellaneous Notes* Telephone Encounter - Lauren Mendez - 12/17/2022 11:21 AM EST Called patient and r/s to next week * Telephone Encounter - Lauren Mckeon RN - 12/17/2022 11:15 AM EST Pt's caris testing has not been resulted yet. Please call pt and reschedule to next week per Dr Moncada's request. Thanks Laruen Mckeon RN documented in this encounterBrown Memorial Hospital02-22-2023 Hospital Discharge instructions Patient Education 12/05/2022 [...] cells. Follow these instructions at home: Take obpz-lvk-ixmqftk and prescription medicines only as told by [...] is important. Where to find more information [place] [employer]: www.cancer.org National Cancer H[employer] (NCI): www.cancer.gov Contact a health care provider [...] 10/02/2004 Document Revised: 09/12/2018 Document Reviewed: 09/03/2017 [employer] Patient Education 2020 [employer]. Follow Up Care 11/23/2022 15:08:18 With:JENNIFER FOUNTAIN, Jian Lee, URL Address: [facility] [address] , [place] [id number]- When: Unknown [facility] 02-13-2023 Instructions* Patient Instructions* Graeme Vazquez MD - 11/26/2022 9:29 AM EST 1. Virtual visit 3 weeks after discussion with Dr. Bhatt and consideration of molecular studies. 2. AP Mol. documented in this encounterBrown Memorial Hospital02-13-2023 History of Present illness Narrative* Graeme Vazquez MD - 11/26/2022 8:53 AM EST [...] and other physicians involved in patient's care: Sergio Sneed (PCP), Jian Kay DIAGNOSIS: Upper urothelial [...] Will need treatment assessment. Will obtain NGS. Graeme Vazquez MD, CPE Hematology and Oncology Services Provided at: [place], [place] I spent a total of 40 minutes on the date of the service which included preparing to see the patient, aysy-uq-iaou patient care, completing clinical documentation, obtaining and/or reviewing separately obtained history, performing a medically appropriate examination, counseling and educating the pat ient/family/caregiver, ordering medications, tests, or procedures, independently interpreting results (not separately reported) and communicating results to the patient/family/caregiver. documented in this encounterBrown Memorial Hospital02-13-2023 Nurse Note* Jami Hernandez MA - 11/26/2022 8:47 AM EST Patient [facility] he will havehis ureteral stent removed locally by Dr. Rodriguez. Jami Hernadnez MA documented in this encounterBrown Memorial Hospital02-07-2023 History of Present illness Narrative* Galen [...] he would probably be best off recieving retirement immunotherapy or other systemic therapy. We could [...] complete. Galen Bhatt MD documented in this encounterBrown Memorial Hospital11-30-2022 History of Present illness Narrative* Nicholas Saenz MD - 09/12/2022 2:45 PM EST [facility] PRE-OP NOTE Patient [...] surgery pending LABS, IMPACT documented in this encounterBrown Memorial Hospital11-30-2022 History and physical note * Fatimah Salcedo PA-C - 09/12/2022 12:40 PM EST Images from the original note were not included. HISTORY AND PHYSICAL EXAMINATION SERVICE DATE: 09/12/2022 SERVICE TIME: 11:10 AM PRIMARY CARE PHYSICIAN: Sergio Sneed MD, MD REASON FOR VISIT: Juan [...] fevers. Neuro: No history of TIA's, stroke, RADIOISOTOPE PRODUCTION OPERATOR tumor, impaired sensorium, hemiplegia, paraplegia or quadraplegia. No neurological symptoms or problems. Respiratory: No history of current cough or dyspnea, or pneumonia in the past 6 weeks. No history of respiratory/pulmonary symptoms or problems. Cardiovascular: Negative for Recent DE, Angina, Arrhythmia, CAD, Chest Pain, PVD, Valvular Heart Disease, DVT/PE+HTN, +HF Follows with cardiology Dr. Keven Castaneda GI: Negative for PUD, Nausea, Vomiting, [...] BLOCK ABNORMAL ECG ECHO 02/27/22 scanned into [facility] Assessment/Plan Hypertensive heart disease with heart failure (HCC) -BP elevated in office 171/70, 170/72, patient reports he has not taken any of his medications yet today -denies cardiac symptoms -EF 55% on echo 02/2022 scanned into [facility] -on hydralazine, losartan, isosorbide dinitrate, and Jardiance -follows with cardiology, dr. Keven Castaneda, requested most recent office note Gastro-esophageal [...] service. Requested most recent office note from relations liaison, Dr. Mason Castaneda. Planned Anesthetic: General Instructions Given to Patient: Instructions located in the after visit summary. Patient given verbal and written preop instructions and voices comprehension and compliance. SIGNATURE: Fatimah Salcedo PA-C PATIENT NAME: Juan Jose Austin DATE: September 12, 2022 TIME: 11:37 AM documented in this encounterBrown Memorial Hospital11-30-2022 Instructions* Patient Instructions* Fatimah Salcedo PA-C - 09/12/2022 11:21 AM EST PATIENT PREOPERATIVE INSTRUCTIONS Galen Bhatt MD has scheduled you for your procedure at this surgery center: [facility] Scheduling Office: [phone] --[address] [place] [address]. Please read below carefully for your personalized [...] Procedures: - YOU MUST HAVE A RESPONSIBLE PEDIATRIC ORTHODONTIST TAKE YOU HOME. A ROAD DRIVER OR RAND CEMENTER CANNOT BE MADE A RESPONSIBLE PEDIATRIC ORTHODONTIST. - We recommend that a responsible person [...] call the Saturday before. Your surgeon s inventory assistant will tell you what time to call the office. - If you have not reached the departmental inventory assistant by 5 P.M., call [phone] after 5 P.M. the day before your surgery. Please be aware that emergency situations arise, which may delay or change your surgical time. If this happens, we will notify you as soon as possible and regret any inconvenience. If you already have an Advance Directive, please fax a copy to [phone] or email to for it to be [...] day. 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 It required patient- provider interaction for the medical decision making as documented below. Chief complaint: Preop teaching [facility] PRE-OP NOTE Juan Jose Austin is a 81 year old male. Pre-op Date: March 26, 2022 Date of Procedure: 03/28/22 Does the patient have an active COVID-19 test in [facility]? N/A Procedure/Surgery: LASER CYSTOURETHROSCOPY W/ URETEROSCOPY [...] minutes Jimmy Tejada PA-C documented in this encounterBrown Memorial Hospital05-31-2022 History of Present illness Narrative* Galen Bhatt MD - 03/13/2022 2:10 PM EDT VIRTUAL VISIT PROGRESS NOTE This is a virtual visit using [employer] video visit. It required patient-provider interaction for [...] 1 tablet by mouth once daily. Fish Oil-Carriere-3 Fatty Acids (FISH OIL) 300-1,000 mg cap [...] the date of the service which included rpjx-cv-fuuj patient care, completing clinical documentation, obtaining and/or reviewing separately obtained history and counseling and educating the patient/family/caregiver Scribe Attestation: By signing my name below, I, Gely Soriano, attest that this documentation has been prepared underthe direction and in the presence of Dr. Galen Bhatt MD. Electronically signed: Saad Ahn, March 13, 2022 2:39 PM IGalen MD, personally performed the services described in this documentation. All medical record entries made by the scribe were at my direction and in my presence. I have reviewed the chart and discharge instructions (if applicable) and agree that the record reflects my personal performance and is accurate and complete. 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) Roomlr Other 05-23-2022 History of Present illness Narrative* Soren Perea MD - 03/05/2022 1:02 PM EDT ONCOLOGY FOLLOW UP Elements in this clinic note that are critical to medical decision making have been carefully reviewed and included from Corazon Maxwell's prior clinic note dated: February 19, 2022 March 05, 2022 PCP and other physicians involved in patient's care: Sergio Sneed (PCP), Jian Kay DIAGNOSIS: Upper urothelial [...] which included preparing to see the patient, jftr-ne-cqvw patient care, completing clinical documentation, obtaining and/or reviewing separately obtained history, performing a medically appropriate examination, counseling and educating the pat ient/family/caregiver, ordering medications, tests, or procedures, independently interpreting results (not separately reported) and communicating results to the patient/family/caregiver. documented in this encounterBrown Memorial Hospital05-09-2022 History of Present illness Narrative* Corazon Maxwell PA-C - 02/19/2022 12:17 PM EDT ONCOLOGY FOLLOW UP Elements in this clinic note that are critical to medical decision making have been carefully reviewed and included from my prior clinic note dated: February 12, 2022 February 19, 2022 PCP and other physicians involved in patient's care: Sergio Sneed (PCP), Jian Kay DIAGNOSIS: Upper urothelial [...] weeks. Corazon Maxwell PA-C documented in this encounterBrown Memorial Hospital05-02-2022 History of Present illness Narrative* Soren Perea MD - 02/12/2022 1:15 PM EDT ONCOLOGY FOLLOW UP Elements in this clinic note that are critical to medical decision making have been carefully reviewed and included from my prior clinic note dated: February 05, 2022 February 12, 2022 PCP and other physicians involved in patient's care: Sergio Sneed (PCP), Jian Kay DIAGNOSIS: Upper urothelial [...] which included preparing to see the patient, qced-mb-cjnb patient care, completing clinical documentation, obtaining and/or reviewing separately obtained history, performing a medically appropriate examination, counseling and educating the pat ient/family/caregiver, ordering medications, tests, or procedures, independently interpreting results (not separately reported) and communicating results to the patient/family/caregiver. documented in this encounterBrown Memorial Hospital04-25-2022 History of Present illness Narrative* Soren Perea MD - 02/05/2022 12:22 PM EDT ONCOLOGY FOLLOW UP Elements in this clinic note that are critical to medical decision making have been carefully reviewed and included from Corazon Maxwell's prior clinic note dated: January 22, 2022 February 05, 2022 PCP and other physicians involved in patient's care: Sergio Sneed (PCP), Jian Kay DIAGNOSIS: Upper urothelial [...] which included preparing to see the patient, npzm-wj-ktqs patient care, completing clinical documentation, obtaining and/or reviewing separately obtained history, performing a medically appropriate examination, counseling and educating the pat ient/family/caregiver, ordering medications, tests, or procedures, independently interpreting results (not separately reported) and communicating results to the patient/family/caregiver. documented in this encounterBrown Memorial Hospital04-11-2022 History of Present illness Narrative* Belia Martínez RN - 01/22/2022 1:27 PM EDT . documented in this encounterBrown Memorial Hospital04-04-2022 History of Present illness Narrative* Irma Ariaz RN - 01/15/2022 1:38 PM EDT . documented in this encounterBrown Memorial Hospital04-04-2022 History of Present illness Narrative* Corazon Maxwell PA-C - 01/15/2022 1:00 PM EDT ONCOLOGY FOLLOW UP (Elements copied from Dr. Perea's note dated January 08, 2022, have been reviewed and updated where appropriate, and all reflect current assessment and medical decision making during today's encounter,January 15, 2022) January 15, 2022 PCP and other physicians involved in patient's care: Sergio Sneed (PCP), Jian Kay DIAGNOSIS: Upper urothelial [...] 8. Corazon Maxwell PA-C documented in this encounterBrown Memorial Hospital03-28-2022 History of Present illness Narrative* Soren Perea MD - 01/08/2022 9:45 AM EDT ONCOLOGY FOLLOW UP Elements in this clinic note that are critical to medical decision making have been carefully reviewed and included from my prior clinic note dated: December 25, 2021 January 08, 2022 PCP and other physicians involved in patient's care: Sergio Sneed (PCP), Jian Kay DIAGNOSIS: Upper urothelial [...] Blood work today shows platelet count of [id number]. I will hold treatment today and continue with cycle 3 day 1 in a week. The plan is to repeat endoscopy evaluation after 3-6 cycles of chemotherapy based on tolerance. Soren Perea MD I spent a total of 20 minutes on the date of the service which included preparing to see the patient, cyiy-vq-ysbm patient care, completing clinical documentation, obtaining and/or reviewing separately obtained history, performing a medically appropriate examination, counseling and educating the pat ient/family/caregiver, ordering medications, tests, or procedures, independently interpreting results (not separately reported) and communicating results to the patient/family/caregiver. documented in this encounterBrown Memorial Hospital09-25-2020 History of Present illness Narrative* Wang Linda Karan (Ct), CT - 07/08/2020 11:20 AM EDT [...] [facility] Future Appointments Appointment Date:12/18/2022 01:00:00 PM Scheduled Provider:Jian RODRIGUEZ MD Location:[facility] Appointment Type:URO Procedure 15 min [facility] Evaluation note* Diagnosis Malignant neoplasm of ureter, unspecified laterality (HCC)- Primary documented in this encounter [facility]* Diagnosis Malignant neoplasm of ureter, unspecified laterality (HCC)- Primary documented in this encounter [facility]* Diagnosis Malignant neoplasm of ureter, unspecified laterality (HCC)- Primary documented in this [facility]* Diagnosis Malignant neoplasm of ureter, unspecified laterality (HCC)- Primary documented in this encounter [facility]* Diagnosis Malignant neoplasm of ureter, unspecified laterality (HCC)- Primary documented in this encounter [facility]* Diagnosis Malignant neoplasm of ureter, unspecified laterality (HCC)- Primary documented in this encounter [facility]* Diagnosis Malignant neoplasm of ureter, unspecified laterality (HCC)- Primary documented in this encounter [facility]* Diagnosis Malignant neoplasm of ureter, unspecified laterality (HCC)- Primary documented in this encounter [facility]* Diagnosis Urothelial carcinoma (HCC)- Primary Other malignant neoplasm without specification of site Urothelial carcinoma (HCC) Other malignant neoplasm without specification of site documented in this encounter [facility]* Diagnosis Urothelial carcinoma (HCC)- Primary Other malignant neoplasm without specification of site Urothelial carcinoma (HCC) Other malignant neoplasm without specification of site documented in this encounter [facility]* Diagnosis 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, unspecified laterality (HCC)- Primary Acute cystitis without hematuria Acute cystitis documented in this encounter [facility]* Diagnosis Urothelial carcinoma (HCC)- Primary Other malignant neoplasm without specification of site Urothelial carcinoma (HCC) Other malignant neoplasm without specification of site documented in this encounter [facility]* Diagnosis Pre-op evaluation- Primary Preoperative examination, unspecified Hypertensive heart disease with heart failure (HCC) 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 Gastro-esophageal reflux disease without esophagitis Esophageal reflux 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 Stage 3 chronic kidney disease, unspecified whether stage 3a or 3b CKD (HCC) 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, 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, except renal pelvis (HCC) Malignant neoplasm of kidney, except pelvis Malignant neoplasm of urinary bladder, unspecified site (HCC) documented in this encounter [facility] [facility] Diagnosis Urothelial carcinoma (HCC)- Primary Other malignant neoplasm without specification of site Malignant neoplasm of right kidney, except renal pelvis (HCC) Malignant neoplasm of kidney, except pelvis Malignant neoplasm of urinary bladder, unspecified site (HCC) documented in this encounter [facility] Diagnosis Screening for genitourinary condition Screening for other and unspecified genitourinary condition Malignant neoplasm of right kidney, except renal pelvis (HCC) Malignant neoplasm of kidney, except pelvis Malignant neoplasm of urinary bladder, unspecified site (HCC) documented in this encounter [facility] note* Diagnosis 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, unspecified laterality (HCC)- Primary documented in this encounter [facility] noteNo [employer] [employer] Other Evaluation note* Diagnosis CELSO (acute kidney injury) (HCC)- Primary Acute kidney failure, unspecified documented in this encounter [facility] note* Diagnosis 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 Malignant neoplasm of other specified sites of bladder documented in this encounter [facility] note* Diagnosis Malignant neoplasm of [...] unspecified laterality (HCC) documented in this encounter [facility] note* Diagnosis 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 Malignant neoplasm of other specified sites of bladder Malignant neoplasm of right kidney, except renal pelvis (HCC) Malignant neoplasm of kidney, except pelvis Malignant neoplasm of ureter, unspecified laterality (HCC) documented in this encounter [facility] note* Diagnosis 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 Malignant neoplasm of other specified sites of bladder CKD (chronic kidney disease), stage V (HCC) Chronic kidney disease, Stage V Disorder of thyroid Unspecified disorder of thyroid Malaise and fatigue Other malaise and fatigue documented in this encounter [facility] note* Diagnosis 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 Malignant neoplasm of other specified sites of bladder CKD (chronic kidney disease), stage V (HCC) Chronic kidney disease, Stage V Abnormal weight loss Loss of weight Malignant neoplasm of urinary bladder, unspecified site (HCC) documented in this encounter [facility] note* Diagnosis Abnormal finding of diagnostic imaging- Primary Other nonspecific (abnormal) findings on radiological and other examinations of body structure 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 Malignant neoplasm of other specified sites of bladder Disorder of thyroid Unspecified disorder of thyroid documented in this encounter [facility] note* Diagnosis Elevated troponin- Primary Other abnormal blood chemistry documented in this encounter [facility] note* Diagnosis 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 Malignant neoplasm of other specified sites of bladder CKD (chronic kidney disease), stage V (HCC) Chronic kidney disease, Stage V Malignant neoplasm of urinary bladder, unspecified site (HCC) Disorder of thyroid Unspecified disorder of thyroid Abnormal blood chemistry Other abnormal blood chemistry documented in this encounter 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 Stage 3 chronic kidney [...] of ureteric orifice [facility] Diagnosis Abscess Cellulitis and abscess of unspecified site [facility] Diagnosis Open wound of left chest wall, initial encounter- Primary 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 Infection of pacemaker pocket, initial encounter [facility] Diagnosis Open wound of left chest wall, initial encounter- Primary Pacemaker complications, initial encounter [facility]* Diagnosis Chest wall ulcer, 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, initial encounter Open wound of left chest wall, initial encounter [facility] N[facility] - Reported* Type Description Date Medical History colitis Medical HistoryhyperlipidemiaMedical HistoryHTNMedical HistoryKIDNEY CANCER Surgical HistoryKIDNEY REMOVED Roomlr Other History general Narrative - Reported* Type Description Date Medical History colitis Medical HistoryhyperlipidemiaMedical HistoryHTNMedical HistoryKIDNEY CANCER Surgical HistoryKIDNEY REMOVEDHospitalization HistoryNo Hospitalization history information Roomlr Other Hospital course Narrative No data available for this section [facility] InstructionsNot on filedocumented in this encounter [facility]Not on filedocumented in this encounter [facility]ructionsNot on filedocumented in this encounter [facility] SystemInstructionsNot on filedocumented in this encounter [facility] No data available for this section [facility] Reason for referral (narrative)* Outpatient Procedure (Routine) - Pending ReviewSpecialtyDiagnoses / ProceduresReferred By Contact [facility] Diagnoses 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, unspecified laterality (HCC) Procedures ECG COMPLETE ECG ROUTINE ECG W/LEAST 12 LDS W/I&R Galen Bhatt MD [address] [facility] [address] [place] [address] [place] [address] Referral IDStatusReasonStart DateExpiration DateVisits RequestedVisits [id number] Auto-Generated [facility]erral [facility] (n[facility]ative[facility] Outpatient Procedure (Routine) - ClosedSpecialtyDiagnoses / ProceduresReferred By ContactReferred To Contact [facility] Diagnoses Pre-op evaluation Procedures ECG COMPLETE ECG ROUTINE ECG W/LEAST 12 LDS W/I&R Fatimah Salcedo PA-C [address] [address] [place] [address] Referral IDStatusReasonFirestone DateExpiration DateVisits RequestedVisits [id number] Auto-Generated Referral [facility] Summary Purpose Family History No Family History Records FoundNo Family History Records FoundNo Family History Records FoundNo Family History Records FoundNo Family History Records FoundNo Family History Records FoundNo Family History Records FoundNo Family History Records FoundNo Family History Records FoundNo Family History Records Found Advance Directives No Advanced Directives Records FoundDocuments on File TypeDate 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 RepresentativeExplanationAdvance Directive(s)11/01/2021 2:32 PMAdvance Directive(s)10/28/2019 10:37 AMAdvance Directive(s)09/30/2019 10:07 AMAdvance Directive(s)09/15/2019 2:16 PMAdvance Directive(s)08/11/2019 11:16 AMAdvance Directive(s)08/11/2019 11:21 AMTypeDate 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 RepresentativeExplanationAdvance Directive(s)11/01/2021 2:32 PMAdvance Directive(s)10/28/2019 10:37 AMAdvance Directive(s)09/30/2019 10:07 AMAdvance Directive(s)09/15/2019 2:16 PMAdvance Directive(s)08/11/2019 11:16 AMAdvance Directive(s)08/11/2019 11:21 AMTypeDate 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 Youth Coordinator ExplanationAdvance Directive(s)03/14/2022 4:48 PMAdvance Directive(s)11/01/2021 2:32 PMAdvance Directive(s)10/28/2019 10:37 AMAdvance Directive(s)09/30/2019 10:07 AMAdvance Directive(s)09/15/2019 2:16 PMAdvance Directive(s)08/11/2019 11:16 AMAdvance Directive(s)08/11/2019 11:21 AMTypeDate 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 RepresentativeExplanationAdvance Directive(s)03/14/2022 4:48 PMAdvance Directive(s)11/01/2021 2:32 PMAdvance Directive(s)10/28/2019 10:37 AMAdvance Directive(s)09/30/2019 10:07 AMAdvance Directive(s)09/15/2019 2:16 PMAdvance Directive(s)08/11/2019 11:16 AMAdvance Directive(s)08/11/2019 11:21 AMTypeDate 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 RepresentativeExplanationAdvance Directive(s)05/04/2022 1:37 PM Advance Directive(s)03/14/2022 4:48 PMAdvance Directive(s)11/01/2021 2:32 PMAdvance Directive(s)10/28/2019 10:37 AMAdvance Directive(s)09/30/2019 10:07 AMAdvance Directive(s)09/15/2019 2:16 PMAdvance Directive(s)08/11/2019 11:16 AMAdvance Directive(s)08/11/2019 11:21 AMTypeDate 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 Youth Coordinator ExplanationAdvance Directive(s)08/11/2019 11:21 AMTypeDate 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 RepresentativeExplanationAdvance Directive(s)08/11/2019 11:21 AMNameRelationship Healthcare Agent RelationshipCommunicationEncompass [facility] HaysChildPrimary Decision Maker * NameRelationshipHealthcare Agent RelationshipCommunM[facility] Primary Decision Maker* NameRelationshipHealthcare Agent RelationshipComM[facility] Primary Decision Maker* NameRelationshipHealthcare Agent RelationshipComM[facility] Primary Decision Maker* Date ActivatedDate InactivatedComments04/19/2025 5:09 PM04/23/2025 4:07 PMDate ActivatedDate InactivatedComments04/19/2025 5:09 PM04/23/2025 4:07 PM Medications Administered Section Medication OrderMAR ActionAction DateDoseRateSite CARBOplatin 302 mg in NaCl 0.9% 250 mL (PARAPLATIN) 302 mg (Target AUC = 5), INTRAVENOUS, Administer over 30 Minutes, ONCE, 1 dose, On Sat01/15/22 at 1330, Approx Total Volume: mL EXP:01/16/2022@1330 Hazardous Chemotherapy Drug: Use appropriate PPE. Antineoplastic Irritant. New Bag/Syringe/Tcxqdr7101/15/2022 2:46 PM [id number] mg dexAMETHasone 10 mg/NS 50 mL (PYXIS) 10 mg ivpb 10 mg, INTRAVENOUS, ONCE, 1 dose, On Sat01/15/22 at 1330, Refrigerate. New Bag/Syringe/Pebjmt5201/15/2022 1:41 PM EDT10 mg gemcitabine 1,950 mg in NaCl 0.9% 250 mL (GEMZAR) 1,950 mg (1,000 mg/m2 1.95 m2 Treatment Plan BSA from Recorded weight), INTRAVENOUS, Administer over 30 Minutes, ONCE, 1 dose, On Sat01/15/22 at 1330, Approx Total Volume: mL EXP:_01/16/2022@1930 Hazardous Chemotherapy Drug: Use appropriate PPE. Antineoplastic Irritant. New Bag/Syringe/Ulmgsl1001/15/2022 2:09 PM EDT1,950 mg palonosetron 0.25 mg injection (ALOXI) 0.25 mg, INTRAVENOUS, ONCE, 1 dose, On Sat01/15/22 at 1330, Flush IV line with NS prior to and following administration. Given01/15/2022 1:38 PM EDT0.25 mgMedication OrderMAR ActionAction DateDoseRate Site gemcitabine 1,950 mg in NaCl 0.9% 250 mL (GEMZAR) 1,950 mg (1,000 mg/m2 1.95 m2 Treatment Plan BSA from Recorded weight), INTRAVENOUS, Administer over 30 Minutes, ONCE, 1 dose, On Sat01/22/22 at 1300, Approx Total Volume EXP: 0500 01/24/22 Hazardous Chemotherapy Drug: Use appropriate PPE. Antineoplastic Irritant. New Bag/Syringe/Fkxdyn5601/22/2022 1:33 PM EDT1,950 mg ondansetron (PF) 8 mg injection (ZOFRAN) 8 mg, INTRAVENOUS, ONCE, 1 dose, On Sat01/22/22 at 1300, Administer 30 minutes prior to infusion. Given01/22/2022 1:29 PM EDT8 mgMedication OrderMAR ActionAction DateDoseRateSite CARBOplatin 240 mg in NaCl 0.9% 250 mL (PARAPLATIN) 240 mg (Target AUC = 4), INTRAVENOUS, Administer over 30 Minutes, ONCE, 1 dose, On Sat02/12/22 at 1400, Approx Total Volume: mL EXP:__02/13/22 @ 1999___ Hazardous Chemotherapy Drug: Use appropriate PPE. Antineoplastic Irritant. New Bag/Syringe/Qclsvy9602/12/2022 2:58 PM [id number] mg dexAMETHasone 10 mg/NS 50 mL (PYXIS) 10 mg ivpb (DECADRON) 10 mg, INTRAVENOUS, ONCE, 1 dose, On Sat02/12/22 at 1400, Refrigerate. New Bag/Syringe/Tzhpuw9802/12/2022 1:54 PM EDT10 mg gemcitabine 1,568 mg in NaCl 0.9% 250 mL (GEMZAR) 1,568 mg (800 mg/m2 1.96 m2 Treatment Plan BSA from Recorded weight), INTRAVENOUS, Administer over 30 Minutes, ONCE, 1 dose, On Sat02/12/22 at 1400, Approx Total Volume: mL EXP:_ 02/13/22 @ 1999 Hazardous Chemotherapy Drug: Use appropriate PPE. Antineoplastic Irritant. New Bag/Syringe/Bdzpau0902/12/2022 2:24 PM EDT1,568 mg palonosetron 0.25 mg injection (ALOXI) 0.25 mg, INTRAVENOUS, ONCE, 1 dose, On Sat02/12/22 at 1400, Flush IV line with NS prior to and following administration. Given02/12/2022 1:52 PM EDT0.25 mgMedication OrderMAR ActionAction DateDoseRate Site pembrolizumab 200 mg in NaCl 0.9% 66 mL (KEYTRUDA) 200 mg, INTRAVENOUS, Administer over 30 Minutes, ONCE, 1 dose, On Sat01/02/23 at 1600, Approx TotalVolume: 66 mL -- Exp: 01/02/23@2200 Administer with 0.2 micron filter. New Bag/Syringe/Vxvbll1401/02/2023 4:02 PM [id number] mgMedication OrderMAR Action Action DateDoseRateSite pembrolizumab 200 mg in NaCl 0.9% 66 mL (KEYTRUDA) 200 mg, INTRAVENOUS, Administer over 30 Minutes, ONCE, 1 dose, On Sat01/31/23 at 0930, EXP:L 01/31/23 1515 RT Administer with 0.2 micron filter. New Bag/Syringe/Gghvwp3501/31/2023 9:33 AM [id number] mgMedication OrderMAR Action Action DateDoseRateSite pembrolizumab 200 mg in NaCl 0.9% 66 mL (KEYTRUDA) 200 mg, INTRAVENOUS, Administer over 30 Minutes, ONCE, 1 dose, On Sat04/04/23 at 1130, Approx TotalVolume: 66 mL EXP: 1900 Administer with 0.2 micron filter. New Bag/Syringe/Xjsbum5904/04/2023 11:30 AM [id number] mgMedication OrderMAR Action Action DateDoseRateSite pembrolizumab 200 mg in NaCl 0.9% 66 mL (KEYTRUDA) 200 mg, INTRAVENOUS, Administer over 30 Minutes, ONCE, 1 dose, On Sat04/25/23 at 1400, Approx TotalVolume: 66 mL EXP: 04/25/23 2000 Administer with 0.2 micron filter. New Bag/Syringe/Lazmaq4604/25/2023 2:11 PM [id number] mgMedication OrderMAR Action Action DateDoseRateSite pembrolizumab 200 mg in NaCl 0.9% 66 mL (KEYTRUDA) 200 mg, INTRAVENOUS, Administer over 30 Minutes, ONCE, 1 dose, On [place]usebia 05/16/23 at 1430, EXP: 0 RT Administer with 0.2 micron filter. New Bag/Syringe/Dbqnvk4305/16/2023 2:40 PM [id number] mgMedication OrderMAR Action Action DateDoseRateSite pembrolizumab 200 mg in NaCl 0.9% 66 mL (KEYTRUDA) 200 mg, INTRAVENOUS, Administer over 30 Minutes, ONCE, 1 dose, On [place] 06/06/23 at 1430, EXP: 06/06/23 2030 RT Administer with 0.2 micron filter. New Bag/Syringe/Fjajnq6706/06/2023 2:51 PM [id number] mgMedication OrderMAR Action Action DateDoseRateSite pembrolizumab 200 mg in NaCl 0.9% 66 mL (KEYTRUDA) 200 mg, INTRAVENOUS, Administer over 30 Minutes, ONCE, 1 dose, On Eusebia 06/27/23 at 1400, EXP: 214406/27/23 Administer with 0.2 micron filter. New Bag/Syringe/Hlzgdu9106/27/2023 2:26 PM [id number] mgMedication OrderMAR Action Action DateDoseRateSite pembrolizumab 200 mg in NaCl 0.9% 66 mL (KEYTRUDA) 200 mg, INTRAVENOUS, Administer over 30 Minutes, ONCE, 1 dose, On Eusebia 07/18/23 at 1400, EXP: 1400 07/19/23 RF Administer with 0.2 micron filter. New Bag/Syringe/Bnnxvp2907/18/2023 2:18 PM [id number] mgMedication OrderMAR Action Action DateDoseRateSite pembrolizumab 200 mg in NaCl 0.9% 66 mL (KEYTRUDA) 200 mg, INTRAVENOUS, Administer over 30 Minutes, ONCE, 1 dose, On [place]usebia 09/19/23 at 1500, EXP: 2114 RTAdminister with 0.2 micron filter. New Bag/Syringe/Islwoz9609/19/2023 3:19 PM [id number] mg Reason for Referral SpecialtyDiagnoses / ProceduresReferred By ContactReferred To ContactCT IMAGING Diagnoses Malignant neoplasm of overlapping sites of bladder (HCC) Procedures CT CHEST W IVCON DIAGNOSTIC COMPUTED TOMOGRAPHY THORAX W/CONTRAST Graeme Vazquez MD [address] [place] [address] [place] [id number] Ct Imaging Referral IDStatusReasonStart DateExpiration DateVisits RequestedVisits [id number] Auto-Generated Referral [id number] / ProceduresReferred By ContactReferred To ContactCT IMAGING Diagnoses Malignant neoplasm of overlapping sites of bladder (HCC) Procedures CT ABD/PEL W IVCON CT ABD & PELVIS W/CONTRAST Graeme Vazquez MD [address] [place] [id number] Ct Imaging Referral IDStatusReasonStart DateExpiration DateVisits RequestedVisits [id number] Auto-Generated Referral Additional Source Comments (unrecognized sect ion and content) No Status Records FoundNo Status Records FoundNo Status Records FoundNo Status Records FoundNo Status Records FoundNo Status Records FoundNo Status Records FoundNo Status Records FoundNo Status Records FoundNo Status Records Found INFORMATION SOURCE (unrecogn ized section and content) DATE CREATED AUTHOR 04/30/2018 [facility] DATE CREATED AUTHOR AUTHOR'S ORGANIZ ATION 03/06/2019 [facility] DATE CREATED AUTHOR AUTHOR'S ORGANIZ ATION 03/24/2023 [facility] DATE CREATED AUTHOR AUTHOR'S ORGANIZ ATION 04/27/2023 [facility] DATE CREATED AUTHOR AUTHOR'S ORGANIZ ATION 01/22/2025 [facility] DATE CREATED AUTHOR AUTHOR'S ORGANIZ ATION 04/08/2025 [facility] DATE CREATED AUTHOR AUTHOR'S ORGANIZ ATION 04/26/2025 [facility] DATE CREATED AUTHOR AUTHOR'S ORGANIZ ATION 05/09/2025 [facility] DATE CREATED AUTHOR AUTHOR'S ORGANIZ ATION 05/18/2025 [facility] DATE CREATED AUTHOR AUTHOR'S ORGANIZ ATION 07/21/2025 [facility] Source Comments (unrecognize d section and content) In the event this informatio n is protected by the Federal Confidentiality of Alcohol and Drug Abuse Patient Records regulations: The Federal rules restrict any use of the information to criminally investigate or prosecute any alcohol or drug abuse patient.[facility] HospitalIn the event this information is protected by the Federal Confidentiality of Alcohol and Drug Abuse Patient Records regulations: The Federal rules restrict any use of the information to criminally investigate or prosecute any alcohol or drug abuse patient.[facility] HospitalIn the event this information is protected by the Federal Confidentiality of Alcohol and Drug Abuse Patient Records regulations: The Federal rules restrict any use of the information to criminally investigate or prosecute any alcohol or drug abuse patient.[facility] HospitalIn the event this information is protected by the Federal Confidentiality of Alcohol and Drug Abuse Patient Records regulations: The Federal rules restrict any use of the information to criminally investigate or prosecute any alcohol or drug abuse patient.[facility] HospitalIn the event this information is protected by the Federal Confidentiality of Alcohol and Drug Abuse Patient Records regulations: The Federal rules restrict any use of the information to criminally investigate or prosecute any alcohol or drug abuse patient.[facility] HospitalIn the event this information is protected by the Federal Confidentiality of Alcohol and Drug Abuse Patient Records regulations: The Federal rules restrict any use of the information to criminally investigate or prosecute any alcohol or drug abuse patient.[facility] HospitalIn the event this information is protected by the Federal Confidentiality of Alcohol and Drug Abuse Patient Records regulations: The Federal rules restrict any use of the information to criminally investigate or prosecute any alcohol or drug abuse patient.[facility] HospitalIn the event this information is protected by the Federal Confidentiality of Alcohol and Drug Abuse Patient Records regulations: The Federal rules restrict any use of the information to criminally investigate or prosecute any alcohol or drug abuse patient.[facility] HospitalIn the event this information is protected by the Federal Confidentiality of Alcohol and Drug Abuse Patient Records regulations: The Federal rules restrict any use of the information to criminally investigate or prosecute any alcohol or drug abuse patient.[facility] HospitalIn the event this information is protected by the Federal Confidentiality of Alcohol and Drug Abuse Patient Records regulations: The Federal rules restrict any use of the information to criminally investigate or prosecute any alcohol or drug abuse patient.[facility] HospitalIn the event this information is protected by the Federal Confidentiality of Alcohol and Drug Abuse Patient Records regulations: The Federal rules restrict any use of the information to criminally investigate or prosecute any alcohol or drug abuse patient.[facility] HospitalIn the event this information is protected by the Federal Confidentiality of Alcohol and Drug Abuse Patient Records regulations: The Federal rules restrict any use of the information to criminally investigate or prosecute any alcohol or drug abuse patient.[facility] HospitalIn the event this information is protected by the Federal Confidentiality of Alcohol and Drug Abuse Patient Records regulations: The Federal rules restrict any use of the information to criminally investigate or prosecute any alcohol or drug abuse patient.[facility] HospitalIn the event this information is protected by the Federal Confidentiality of Alcohol and Drug Abuse Patient Records regulations: The Federal rules restrict any use of the information to criminally investigate or prosecute any alcohol or drug abuse patient.[facility] HospitalIn the event this information is protected by the Federal Confidentiality of Alcohol and Drug Abuse Patient Records regulations: The Federal rules restrict any use of the information to criminally investigate or prosecute any alcohol or drug abuse patient.[facility] HospitalIn the event this information is protected by the Federal Confidentiality of Alcohol and Drug Abuse Patient Records regulations: The Federal rules restrict any use of the information to criminally investigate or prosecute any alcohol or drug abuse patient.[facility] HospitalIn the event this information is protected by the Federal Confidentiality of Alcohol and Drug Abuse Patient Records regulations: The Federal rules restrict any use of the information to criminally investigate or prosecute any alcohol or drug abuse patient.[facility] HospitalIn the event this information is protected by the Federal Confidentiality of Alcohol and Drug Abuse Patient Records regulations: The Federal rules restrict any use of the information to criminally investigate or prosecute any alcohol or drug abuse patient.[facility] HospitalIn the event this information is protected by the Federal Confidentiality of Alcohol and Drug Abuse Patient Records regulations: The Federal rules restrict any use of the information to criminally investigate or prosecute any alcohol or drug abuse patient.[facility] HospitalIn the event this information is protected by the Federal Confidentiality of Alcohol and Drug Abuse Patient Records regulations: The Federal rules restrict any use of the information to criminally investigate or prosecute any alcohol or drug abuse patient.[facility] HospitalIn the event this information is protected by the Federal Confidentiality of Alcohol and Drug Abuse Patient Records regulations: The Federal rules restrict any use of the information to criminally investigate or prosecute any alcohol or drug abuse patient.[facility] HospitalIn the event this information is protected by the Federal Confidentiality of Alcohol and Drug Abuse Patient Records regulations: The Federal rules restrict any use of the information to criminally investigate or prosecute any alcohol or drug abuse patient.[facility] HospitalIn the event this information is protected by the Federal Confidentiality of Alcohol and Drug Abuse Patient Records regulations: The Federal rules restrict any use of the information to criminally investigate or prosecute any alcohol or drug abuse patient.[facility] HospitalIn the event this information is protected by the Federal Confidentiality of Alcohol and Drug Abuse Patient Records regulations: The Federal rules restrict any use of the information to criminally investigate or prosecute any alcohol or drug abuse patient.[facility] HospitalIn the event this information is protected by the Federal Confidentiality of Alcohol and Drug Abuse Patient Records regulations: The Federal rules restrict any use of the information to criminally investigate or prosecute any alcohol or drug abuse patient.[facility] HospitalIn the event this information is protected by the Federal Confidentiality of Alcohol and Drug Abuse Patient Records regulations: The Federal rules restrict any use of the information to criminally investigate or prosecute any alcohol or drug abuse patient.[facility] HospitalIn the event this information is protected by the Federal Confidentiality of Alcohol and Drug Abuse Patient Records regulations: The Federal rules restrict any use of the information to criminally investigate or prosecute any alcohol or drug abuse patient.[facility] HospitalIn the event this information is protected by the Federal Confidentiality of Alcohol and Drug Abuse Patient Records regulations: The Federal rules restrict any use of the information to criminally investigate or prosecute any alcohol or drug abuse patient.[facility] HospitalIn the event this information is protected by the Federal Confidentiality of Alcohol and Drug Abuse Patient Records regulations: The Federal rules restrict any use of the information to criminally investigate or prosecute any alcohol or drug abuse patient.[facility] HospitalIn the event this information is protected by the Federal Confidentiality of Alcohol and Drug Abuse Patient Records regulations: The Federal rules restrict any use of the information to criminally investigate or prosecute any alcohol or drug abuse patient.[facility] HospitalIn the event this information is protected by the Federal Confidentiality of Alcohol and Drug Abuse Patient Records regulations: The Federal rules restrict any use of the information to criminally investigate or prosecute any alcohol or drug abuse patient.[facility] HospitalIn the event this information is protected by the Federal Confidentiality of Alcohol and Drug Abuse Patient Records regulations: The Federal rules restrict any use of the information to criminally investigate or prosecute any alcohol or drug abuse patient.[facility] HospitalIn the event this information is protected by the Federal Confidentiality of Alcohol and Drug Abuse Patient Records regulations: The Federal rules restrict any use of the information to criminally investigate or prosecute any alcohol or drug abuse patient.[facility] HospitalIn the event this information is protected by the Federal Confidentiality of Alcohol and Drug Abuse Patient Records regulations: The Federal rules restrict any use of the information to criminally investigate or prosecute any alcohol or drug abuse patient.[facility] HospitalIn the event this information is protected by the Federal Confidentiality of Alcohol and Drug Abuse Patient Records regulations: The Federal rules restrict any use of the information to criminally investigate or prosecute any alcohol or drug abuse patient.[facility] HospitalIn the event this information is protected by the Federal Confidentiality of Alcohol and Drug Abuse Patient Records regulations: The Federal rules restrict any use of the information to criminally investigate or prosecute any alcohol or drug abuse patient.[facility] HospitalIn the event this information is protected by the Federal Confidentiality of Alcohol and Drug Abuse Patient Records regulations: The Federal rules restrict any use of the information to criminally investigate or prosecute any alcohol or drug abuse patient.[facility] HospitalIn the event this information is protected by the Federal Confidentiality of Alcohol and Drug Abuse Patient Records regulations: The Federal rules restrict any use of the information to criminally investigate or prosecute any alcohol or drug abuse patient.[facility] HospitalIn the event this information is protected by the Federal Confidentiality of Alcohol and Drug Abuse Patient Records regulations: The Federal rules restrict any use of the information to criminally investigate or prosecute any alcohol or drug abuse patient.[facility] HospitalIn the event this information is protected by the Federal Confidentiality of Alcohol and Drug Abuse Patient Records regulations: The Federal rules restrict any use of the information to criminally investigate or prosecute any alcohol or drug abuse patient.[facility] HospitalIn the event this information is protected by the Federal Confidentiality of Alcohol and Drug Abuse Patient Records regulations: The Federal rules restrict any use of the information to criminally investigate or prosecute any alcohol or drug abuse patient.[facility] HospitalIn the event this information is protected by the Federal Confidentiality of Alcohol and Drug Abuse Patient Records regulations: The Federal rules restrict any use of the information to criminally investigate or prosecute any alcohol or drug abuse patient.[facility] HospitalIn the event this information is protected by the Federal Confidentiality of Alcohol and Drug Abuse Patient Records regulations: The Federal rules restrict any use of the information to criminally investigate or prosecute any alcohol or drug abuse patient.[facility] HospitalIn the event this information is protected by the Federal Confidentiality of Alcohol and Drug Abuse Patient Records regulations: The Federal rules restrict any use of the information to criminally investigate or prosecute any alcohol or drug abuse patient.[facility] HospitalIn the event this information is protected by the Federal Confidentiality of Alcohol and Drug Abuse Patient Records regulations: The Federal rules restrict any use of the information to criminally investigate or prosecute any alcohol or drug abuse patient.[facility] HospitalIn the event this information is protected by the Federal Confidentiality of Alcohol and Drug Abuse Patient Records regulations: The Federal rules restrict any use of the information to criminally investigate or prosecute any alcohol or drug abuse patient.[facility] HospitalIn the event this information is protected by the Federal Confidentiality of Alcohol and Drug Abuse Patient Records regulations: The Federal rules restrict any use of the information to criminally investigate or prosecute any alcohol or drug abuse patient.[facility] HospitalIn the event this information is protected by the Federal Confidentiality of Alcohol and Drug Abuse Patient Records regulations: The Federal rules restrict any use of the information to criminally investigate or prosecute any alcohol or drug abuse patient.[facility] HospitalIn the event this information is protected by the Federal Confidentiality of Alcohol and Drug Abuse Patient Records regulations: The Federal rules restrict any use of the information to criminally investigate or prosecute any alcohol or drug abuse patient.[facility] HospitalIn the event this information is protected by the Federal Confidentiality of Alcohol and Drug Abuse Patient Records regulations: The Federal rules restrict any use of the information to criminally investigate or prosecute any alcohol or drug abuse patient.[facility] HospitalIn the event this information is protected by the Federal Confidentiality of Alcohol and Drug Abuse Patient Records regulations: The Federal rules restrict any use of the information to criminally investigate or prosecute any alcohol or drug abuse patient.[facility] HospitalIn the event this information is protected by the Federal Confidentiality of Alcohol and Drug Abuse Patient Records regulations: The Federal rules restrict any use of the information to criminally investigate or prosecute any alcohol or drug abuse patient.[facility] HospitalIn the event this information is protected by the Federal Confidentiality of Alcohol and Drug Abuse Patient Records regulations: The Federal rules restrict any use of the information to criminally investigate or prosecute any alcohol or drug abuse patient.[facility] HospitalIn the event this information is protected by the Federal Confidentiality of Alcohol and Drug Abuse Patient Records regulations: The Federal rules restrict any use of the information to criminally investigate or prosecute any alcohol or drug abuse patient.[facility] HospitalIn the event this information is protected by the Federal Confidentiality of Alcohol and Drug Abuse Patient Records regulations: The Federal rules restrict any use of the information to criminally investigate or prosecute any alcohol or drug abuse patient.[facility] HospitalIn the event this information is protected by the Federal Confidentiality of Alcohol and Drug Abuse Patient Records regulations: The Federal rules restrict any use of the information to criminally investigate or prosecute any alcohol or drug abuse patient.[facility] HospitalIn the event this information is protected by the Federal Confidentiality of Alcohol and Drug Abuse Patient Records regulations: The Federal rules restrict any use of the information to criminally investigate or prosecute any alcohol or drug abuse patient.[facility] HospitalIn the event this information is protected by the Federal Confidentiality of Alcohol and Drug Abuse Patient Records regulations: The Federal rules restrict any use of the information to criminally investigate or prosecute any alcohol or drug abuse patient.[facility] HospitalIn the event this information is protected by the Federal Confidentiality of Alcohol and Drug Abuse Patient Records regulations: The Federal rules restrict any use of the information to criminally investigate or prosecute any alcohol or drug abuse patient.[facility] HospitalIn the event this information is protected by the Federal Confidentiality of Alcohol and Drug Abuse Patient Records regulations: The Federal rules restrict any use of the information to criminally investigate or prosecute any alcohol or drug abuse patient.[facility] HospitalIn the event this information is protected by the Federal Confidentiality of Alcohol and Drug Abuse Patient Records regulations: The Federal rules restrict any use of the information to criminally investigate or prosecute any alcohol or drug abuse patient.[facility] HospitalIn the event this information is protected by the Federal Confidentiality of Alcohol and Drug Abuse Patient Records regulations: The Federal rules restrict any use of the information to criminally investigate or prosecute any alcohol or drug abuse patient.[facility] HospitalIn the event this information is protected by the Federal Confidentiality of Alcohol and Drug Abuse Patient Records regulations: The Federal rules restrict any use of the information to criminally investigate or prosecute any alcohol or drug abuse patient.[facility] HospitalIn the event this information is protected by the Federal Confidentiality of Alcohol and Drug Abuse Patient Records regulations: The Federal rules restrict any use of the information to criminally investigate or prosecute any alcohol or drug abuse patient.[facility] HospitalIn the event this information is protected by the Federal Confidentiality of Alcohol and Drug Abuse Patient Records regulations: The Federal rules restrict any use of the information to criminally investigate or prosecute any alcohol or drug abuse patient.[facility] HospitalIn the event this information is protected by the Federal Confidentiality of Alcohol and Drug Abuse Patient Records regulations: The Federal rules restrict any use of the information to criminally investigate or prosecute any alcohol or drug abuse patient.[facility] Reason for Visit (unrecogniz ed section and content) ReasonCommentsmalignant neoplasm of ureterfollow up treatmentReasonComments ureter cancerSpecialtyDiagnoses / ProceduresReferred By ContactReferred To Contact Diagnoses Malignant neoplasm of ureter (HCC) Soren Perea MD [address] [place] [address] [place] [address] [facility] Winsome [address] [place] [address] Referral IDStatusReasonStart DateExpiration DateVisits RequestedVisits [id number]/1/20225/2/[id number] cancer follow up treatmentReasonCommentsmalignant neoplasm of ureterReasonCommentsPre- Op TeachingReasonCommentsFollow UpReasonCommentsPre-Op VisitReasonCommentsPre-Op ExamReasonCommentsFollow UpReasonCommentsUreteral cancerTransition of care ReasonCommentsCare CoordinationReschedule appointmentReasonCommentsPatient UpdateReasonCommentsNon-Chemotherapy TreatmentPembrolizumabSpecialtyDiagnoses / ProceduresReferred By ContactReferred To Contact Diagnoses Malignant neoplasm of ureter, 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, 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) Graeme Vazquez MD [address] [place] [address] [place] [address] Ev[facility]lizbeth Fam [address] [place] [address] Referral IDStatusReasonStart DateExpiration DateVisits RequestedVisits [id number]/13/20236/[id number] JbbrdvukfxyoH0R6 Post Treatment CallReasonCommentsMalignant neoplasm of ureter New start treatmentReasonCommentsBladder CancerReasonCommentsReturn Call Request Call ptReasonCommentsBladder CancerReasonCommentsRadiology CTReasonOnset Date CommentsRefill Vzfwkxa0605/31/2023ReasonCommentsBladder CancerTreatment visit ReasonCommentsPost-Op VisitReasonCommentsCare CoordinationSore ThroatReason CommentsCare CoordinationFollow Up AppointmentSpecialtyDiagnoses / Procedures Referred By ContactReferred To Contact Diagnoses Malignant neoplasm of ureter, 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 Right sided sharp pains worsening with deep breath.ReasonCommentsCare CoordinationDiarrhea >1 monthReasonCommentsAppointment CancelledDiarrheaReason CommentsRadiology CTSpecialtyDiagnoses / ProceduresReferred By ContactReferred To ContactCT IMAGING Diagnoses Malignant neoplasm of urinary bladder, unspecified site (HCC) Procedures CT ABD/PEL W IVCON CT ABD & PELVIS W/CONTRAST Patricia Conteh, PUBLIC SPEAKING PROFESSOR.[address] [place] [address] [place] [id number] Referral IDStatusReasonStart DateExpiration DateVisits RequestedVisits [id number] Auto-Generated Referral [id number] / ProceduresReferred By ContactReferred To ContactCT IMAGING Diagnoses Malignant neoplasm of overlapping sites of bladder (HCC) Procedures CT CHEST W IVCON DIAGNOSTIC COMPUTED TOMOGRAPHY THORAX W/CONTRAST Graeme Vazquez MD [address] [place] [address] [address] [place] [id number] Imaging [facility] Referral IDStatusReasonStart DateExpiration DateVisits RequestedVisits [id number] Auto-Generated Referral /[id number] / ProceduresReferred By ContactReferred To ContactCT IMAGING Diagnoses 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), 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, unspecified site (HCC) Disorder of thyroid Abnormal blood chemistry Procedures CT ABD/PEL W IVCON CT ABD & PELVIS W/CONTRAST Graeme Vazquez MD [address] [place] [address] [address] [place] [id number] [facility] [place] [address] Referral IDStatusReasonStart DateExpiration DateVisits RequestedVisits [id number] Auto-Generated Referral /[id number] IDStatusReasonStart DateExpiration DateVisits RequestedVisits [id number] Auto-Generated Referral /[id number] CTSpecialtyDiagnoses / Procedures Referred By ContactReferred To ContactCT IMAGING Diagnoses Malignant neoplasm of overlapping sites of bladder (HCC) Procedures CT CHEST WO IVCON DIAGNOSTIC COMPUTED TOMOGRAPHY THORAX W/O CNTRST Patricia Conteh, PUBLIC SPEAKING PROFESSOR.ARBORICULTURE INSTRUCTOR [address] [facility] [address] [place] [id number] Imaging [facility]95 Referral IDStatusReasonStart DateExpiration DateVisits RequestedVisits [id number] Auto-Generated Referral /[id number]fbxb feels like its moving . Referral IDStatusReasonStart DateExpiration DateVisits RequestedVisits [id number] Auto-Generated Referral /[id number] CheckSpecialtyDiagnoses / Procedures Referred By ContactReferred To ContactWound Care Diagnoses Surgical wound present Open wound of left chest wall, initial encounter Mahogany Fragoso, PUBLIC SPEAKING PROFESSORLAWRENCE F. [facility] [address] [place] [address] Phone: tel: fax: [facility] [address] [place] [phone] Phone: tel: Referral IDStatusReasonStart DateExpiration DateVisits RequestedVisits [id number] Review Specialty Services Required 1ReasonOnset DateCommentsExtraction site05/05/2025ReasonOnset QgzoEqbydjvpBucgabsz27/23/6269LyvvyhArvlcubwTqalbu-xuca-kttei-scheduled w/ptstatus post dual-chamber leadless pacemakerChest infection due to the pacemakerAtrial FibrillationShortness of BreathReasonCommentsWound Check SpecialtyDiagnoses / ProceduresReferred By ContactReferred To ContactWound Care Diagnoses Surgical wound present Open wound of left chest wall, initial encounter Mahogany Fragoso, PUBLIC SPEAKING PROFESSORARBORICULTURE INSTRUCTOR [address] [place] [address] Phone: tel: fax: [facility] [address] [place] [phone] Phone: tel: Referral IDStatusReasonStart DateExpiration DateVisits RequestedVisits [id number] Review Specialty Services Required Care Teams (unrecognized sec tion and content) Team MemberRelationshipSpecialtyStart DateEnd Date Sergio Sneed MD [address] [place] [address] PCP - GeneralFamily Jmbzvjkn75/17/19 Jian Rodriguez MD [address] [place] [address] PhysicianUrology1 Lauren Mckeon, RN [address] [place] [address] Specialty Care CoordinatorHematology/Oncology11/21/21 Soren Perea MD [address] [place] [address] PhysicianHematology/Oncology11/21/21 Corazon Maxwell, PAEnocC [address] [place] [address] Physician AssistantHematology/Oncology11/21/21Te MemberRelationshipSpecialty Start DateEnd Date Sergio Sneed MD [address] [place] [address] PCP - GeneralFamily Ezyixgip51/17/19 Jian Rodriguez MD [address] [place] [address] PhysicianUrology1 Lauren Mckeon, RN [address] [place] [address] Specialty Care CoordinatorHematology/Oncology11/21/21 Soren Perea MD [address] [facility] [address] [place], [facility] PhysicianHematology/Oncology2 Corazon Maxwell, PAEnocC [address] [place] [address] Physician AssistantHematology/Oncology11/21/21Te MemberRelationshipSpecialty Start DateEnd Date Sergio Sneed MD [address] [place] [address] PCP - GeneralFamily Pasvdime27/17/19 Jian Rodriguez MD [address] [place] [address] PhysicianUrology1/ Lauren Mckeon, RN [address] [place] [address] Specialty Care CoordinatorHematology/Oncology11/21/21 Soren Perea MD [address] [facility] [address] [place], [facility] [facility] PhysicianHematology/Oncology11/21/21 Corazon Maxwell, PAEnocC [address] [place] [address] Physician AssistantHematology/Oncology11/21/21Te MemberRelationshipSpecialty Start DateEnd Date Sergio Sneed MD [address] [id number] PCP - GeneralFamily Yztmrytj85/17/19 Jian Rodriguez MD [address] [place] [address] PhysicianUrology1 Lauren Mckeon, RN [address] [place] [address] Specialty Care CoordinatorHematology/Oncology11/21/21 Soren Perea MD [address] [facility] [address] [place], [facility]70 PhysicianHematology/Oncology11/21/21 Corazon Maxwell, PA-C [address] [place] [address] Physician AssistantHematology/Oncology11/21/21Te MemberRelationshipSpecialty Start DateEnd Date Sergio Sneed MD [address] [place] [address] PCP - GeneralFamily Abzxylbe94/17/19 Jian Rodriguez MD [address] [place] [address] PhysicianUrology1 Lauren Mckeon, RN [address] [place] [address] Specialty Care CoordinatorHematology/Oncology2 Soren Perea MD [address] [place] [address] PhysicianHematology/Oncology2 Corazon Maxwell PA-C [address] [place] [address] Physician AssistantHematology/Oncology11/21/21Te MemberRelationshipSpecialty Start DateEnd Date Sergio Sneed MD [address] [place] [address] PCP - GeneralFamily Pzwrpqxz40/17/19 Jian Rodriguez MD [address] [place] [address] PhysicianUrology1 Lauren Mckeon, RN [address] [place] [address] Specialty Care CoordinatorHematology/Oncology11/21/21 Soren Perea MD [address] [place] [address] PhysicianHematology/Oncology2 Corazon Maxwell PA-C [address] [place] [address] Physician AssistantHematology/Oncology11/21/21Te MemberRelationshipSpecialty Start DateEnd Date Sergio Sneed MD [address] [place] [address] PCP - GeneralFamily Rgnijrtt77/17/19 Jian Rodriguez MD [address] [place] [address] PhysicianUrology1/ Lauren Mckeon RN [address] [place] [address] Specialty Care CoordinatorHematology/Oncology2 Soren Perea MD [address] [place] [address] PhysicianHematology/Oncology2 Corazon Maxwell, CHRISTINA [address] [place] [address] Physician AssistantHematology/Oncology2Te MemberRelationshipSpecialty Start DateEnd Date Sergio Sneed MD [address] [place] [address] PCP - GeneralFamily Uygnasec74/17/19 Jian Rodriguez MD [address] [place] [address] PhysicianUrology1 Lauren Mckeon RN [address] [place] [address] Specialty Care CoordinatorHematology/Oncology11/21/21 Soren Perea MD [address] [facility] [address] [place], [facility]70 PhysicianHematology/Oncology2 Corazon Maxwell PA-C [address] [place] [address] Physician AssistantHematology/Oncology11/21/21Te MemberRelationshipSpecialty Start DateEnd Date Sergio Sneed MD [address] [place] [address] PCP - GeneralFamily Gvamqqah68/17/19 Jian Rodriguez MD [address] [place] [address] PhysicianUrology1//20 Lauren Mckeon, RN [address] [facility] [place] [address] Specialty Care CoordinatorHematology/Oncology11/21/21 Soren Perea MD [address] [facility] [place] [address] PhysicianHematology/Oncology11/21/21 Corazon Maxwell PA-C [address] [facility] [address] [place], [facility]70 Physician AssistantHematology/Oncology11/21/21Te MemberRelationshipSpecialty Start DateEnd Date Sergio Sneed MD [address] [place] [address] PCP - GeneralFamily Numwqvqv70/17/19 Jian Rodriguez MD [address] [place] [address] PhysicianUrolog10/28/19 Lauren Mckeon, RN [address] [place] [address] Specialty Care CoordinatorHematology/Oncology11/21/21 Soren Perea MD [address] [facility] [address] [place], [facility]70 PhysicianHematology/Oncology11/21/21 Corazon Mawxell PA-C [address] [facility] [address] [place], [facility]70 Physician AssistantHematology/Oncology11/21/21Te MemberRelationshipSpecialty Start DateEnd Date Sergio Sneed MD [address] [place] [address] PCP - GeneralFamily Rhzaficf20/17/19 Jian Rodriguez MD [address] [place] [address] PhysicianUrology1 Lauren Mckeon, RN [address] [place] [address] Specialty Care CoordinatorHematology/Oncology11/21/21 Soren Perea MD [address] [place] [address] PhysicianHematology/Oncology11/21/21 Corazon Maxwell, PA-C [address] [place] [address] Physician AssistantHematology/Oncology11/21/21Te MemberRelationshipSpecialty Start DateEnd Date Sergio Sneed MD [address] [place] [address] PCP - GeneralFamily Dlustfgy03/17/19 Jian Rodriguez MD [address] [place] [address] PhysicianUrology1 Soren Perea MD [address] [facility] [address] [place], [facility]70 PhysicianHematology/Oncology11/21/21 Keven Castaneda MD [address] [facility] [address] [place] [address] Hdgebsdrol87/30/22Te MemberRelationshipSpecialtyStart DateEnd Date Sergio Sneed MD [address] [place] [address] PCP - GeneralFamily Ckmvxqli07/17/19 Jian Rodriguez MD [address] [place] [address] PhysicianUrolog10/28/19 Soren Perea MD [address] [place] [address] PhysicianHematology/Oncology11/21/21 Keven Castaneda MD [address] [facility] [address] [place] [address] Sgnucrwnlu62/30/22Te MemberRelationshipSpecialtyStart DateEnd Date Sergio Sneed MD [address] [place] [address] PCP - GeneralFamily Eyqtjdrn67/17/19 Jian Rodriguez MD [address] [place] [address] PhysicianUrology1 Soren Perea MD [address] [address] PhysicianHematology/Oncology2 Keven Castaneda MD [address] [facility] [address] [place] [address] Cvdrskrsff51/30/22Te MemberRelationshipSpecialtyStart DateEnd Date Sergio Sneed MD [address] [place] [address] PCP - GeneralFamily Bcsiddgr20/17/19 Jian Rodriguez MD [address] [place] [address] PhysicianUrology1 Soren Perea MD [address] [place] [address] PhysicianHematology/Oncology2 Keven Castaneda MD [address] [facility] [address] [place] [address] Bjcjjekduy36/30/22Te MemberRelationshipSpecialtyStart DateEnd Date Sergio Sneed MD [address] [place] [address] PCP - GeneralFamily Pmhgvwua97/17/19 Jian Rodriguez MD [address] [place] [address] PhysicianUrolog10/28/19 Soren Perea MD [address] [place] [address] PhysicianHematology/Oncology11/21/21 Keven Castaneda MD [address] [place] [address] Fvjimflgce78/30/22Team MemberRelationshipSpecialtyStart DateEnd Date Sergio Sneed MD [address] [id number] PCP - GeneralFamily Fjwvvyvr42/17/19 Jian Rodriguez MD [address] [place] [address] PhysicianUrolog10/28/19 Soren Perea MD [address] [facility] [address] [place], [facility]70 PhysicianHematology/Oncology11/21/21 Keven Castaneda MD [address] [place] [address] Blooasjoxt86/30/22Team MemberRelationshipSpecialtyStart DateEnd Date Sergio Sneed MD PCP - GeneralFamily Acifvnjw97/17/19 Jian Rodriguez MD [address] [place] [address] PhysicianUrolog10/28/19 Keven Castaneda MD [address] [place] [address] Iwzdsftrpi45/30/22 Graeme Vazquez MD [address] [place] [address] PhysicianHematology/Oncology12/26/22 Margot So, SUNIL [address] [place] [address] Specialty Care CoordinatorHematology/Oncology12/26/22 Patricia Conteh, PUBLIC SPEAKING PROFESSOR.ARBORICULTURE INSTRUCTOR [address] [place] [address] Nurse PractitionerHematology/Oncology12/26/22Team MemberRelationshipSpecialty Start DateEnd Date Sergio Sneed MD PCP - GeneralFamily Wsnczrlx67/17/19 Jian Rodriguez MD [address] [place] [address] PhysicianUrolog10/28/19 Keven Castaneda MD [address] [place] [address] Jqrqlrfxfb56/30/22 Graeme Vazquez MD [address] [place] [address] PhysicianHematology/Oncology12/26/22 Margot So, SUNIL [address] [place] [address] Specialty Care CoordinatorHematology/Oncology12/26/22 Patricia Conteh, PUBLIC SPEAKING PROFESSOR.ARBORICULTURE INSTRUCTOR [address] [place] [address] Nurse PractitionerHematology/Oncology12/26/22Team MemberRelationshipSpecialty Start DateEnd Date Sergio Sneed MD PCP - GeneralFamily Fpsqlymb02/17/19 Jian Rodriguez MD [address] [place] [address] PhysicianUrolog10/28/19 Keven Castaneda MD [address] [place] [address] Slqzdgytnn65/30/22 Graeme Vazquez MD [address] [place] [address] PhysicianHematology/Oncology12/26/22 Margot So, RN [address] [place] [address] Specialty Care CoordinatorHematology/Oncology12/26/22 Patricia Conteh, PUBLIC SPEAKING PROFESSOR.ARBORICULTURE INSTRUCTOR [address] [place] [address] Nurse PractitionerHematology/Oncology12/26/22Team MemberRelationshipSpecialty Start DateEnd Sergio Sneed MD PCP - GeneralFamily Ctkicdkd22/17/19 Jian Rodriguez MD [address] [place] [address] PhysicianUrolog10/28/19 Keven Castaneda MD [address] [place] [address] Zezligqwmp02/30/22 Graeme Vazquez MD [address] [place] [address] PhysicianHematology/Oncology12/26/22 Margot So, RN [address] [place] [address] Specialty Care CoordinatorHematology/Oncology12/26/22 Patricia Conteh, PUBLIC SPEAKING PROFESSOR.ARBORICULTURE INSTRUCTOR [address] [facility] [place] [place] [address] Nurse PractitionerHematology/Oncology12/26/22Team MemberRelationshipSpecialty Start DateEnd Date Sergio Sneed MD PCP - [facility] Keqozzuj99/17/19 Jian Rodriguez MD [address] [place] [address] PhysicianUrolog10/28/19 Keven Castaneda MD [address] [place] [address] Hziiddeset56/30/22 Graeme Vazquez MD [address] [facility] [address] [place] [id number] PhysicianHematology/Oncology12/26/22 Margot So, SUNIL [address] [facility] [place] [place] [address] Specialty Care CoordinatorHematology/Oncology12/26/22 Patricia Conteh, PUBLIC SPEAKING PROFESSOR.ARBORICULTURE INSTRUCTOR [address] [facility] [place] [address] Nurse PractitionerHematology/Oncology12/26/22Te MemberRelationshipSpecialty Start DateEnd Date Sergio Sneed MD PCP - [facility] Kyfugtgp44/17/19 Jian Rodriguez MD [address] [place] [address] PhysicianUrolog10/28/19 Keven Castaneda MD [address] [place] [address] Fhzexgauvd41/30/22 Graeme Vazquez MD [address] [place] [address] PhysicianHematology/Oncology3 Margot So, SUNIL [address] [place] [address] Specialty Care CoordinatorHematology/Oncology12/26/22 Patricia Conteh, PUBLIC SPEAKING PROFESSOR.ARBORICULTURE INSTRUCTOR [address] [place] [address] Nurse PractitionerHematology/Oncology12/26/22Team MemberRelationshipSpecialty Start DateEnd Date Sergio Sneed MD PCP - GeneralFamily Gkbcjpfh27/17/19 Jian Rodriguez MD PhysicianUrolog10/28/19 Keven Castaneda MD [address] [place] [address] Jkatdxyype82/30/22 Graeme Vazquez MD [address] [place] [address] PhysicianHematology/Oncology12/26/22 Margot So, SUNIL [address] [place] [address] Specialty Care CoordinatorHematology/Oncology12/26/22 Patricia Conteh, PUBLIC SPEAKING PROFESSOR.ARBORICULTURE INSTRUCTOR [address] [place] [address] Nurse PractitionerHematology/Oncology3Team MemberRelationshipSpecialty Start DateEnd Date Sergio Sneed MD PCP - GeneralFamily Uvzgdvbl09/17/19 Jian Rodriguez MD PhysicianUrolog10/28/19 Keven Castaneda MD [address] [facility] [address] [place] [address] Dvnpsgczbc55/30/22 Graeme Vazquez MD [address] [place] [address] PhysicianHematology/Oncology12/26/22 Margot So, SUNIL [address] [place] [address] Specialty Care CoordinatorHematology/Oncology12/26/22 Patricia Conteh, PUBLIC SPEAKING PROFESSOR.[facility] [address] [place] [address] Nurse PractitionerHematology/Oncology12/26/22Team MemberRelationshipSpecialty Start DateEnd Sergio Sneed MD PCP - GeneralFamily Pbttmitd69/17/19 Jian Rodriguez MD PhysicianUrolog10/28/19 Keven Castaneda MD [address] [facility] [address] [place] [address] Uwfdwtqncx44/30/22 Graeme Vazquez MD [address] [place] [address] [place] [address] PhysicianHematology/Oncology3 Margot So, SUNIL [address] [place] [address] Specialty Care CoordinatorHematology/Oncology12/26/22 Patricia Conteh, PUBLIC SPEAKING PROFESSOR.ARBORICULTURE INSTRUCTOR [address] [place] [address] Nurse PractitionerHematology/Oncology12/26/22Team MemberRelationshipSpecialty Start DateEnd Date Sergio Sneed MD PCP - GeneralFami Txzirftc15/17/19 Jian Rodriguez MD PhysicianUrolog10/28/19 Keven Castaneda MD [address] [facility] [address] [place] [address] Esntnguhlg57/30/22 Graeme Vazquez MD [address] [place] [address] PhysicianHematology/Oncology12/26/22 Margot So RN [address] [place] [address] Specialty Care CoordinatorHematology/Oncology12/26/22 Patricia Conteh, PUBLIC SPEAKING PROFESSOR.ARBORICULTURE INSTRUCTOR [address] [place] [address] Nurse PractitionerHematology/Oncology12/26/22Team MemberRelationshipSpecialty Start DateEnd Date Sergio Sneed MD PCP - GeneralFamily Msbsmgwc88/17/19 Jian Rodriguez MD PhysicianUrology1 Keven Castaneda MD [address] [facility] [address] [place] [address] Tmkfywnadj44/30/22 Graeme Vazquez MD [address] [place] [address] PhysicianHematology/Oncology12/26/22 Margot So, SUNIL [address] [place] [address] Specialty Care CoordinatorHematology/Oncology12/26/22 Patricia Conteh APRN.ARBORICULTURE INSTRUCTOR [address] [facility] [place] [address] Nurse PractitionerHematology/Oncology12/26/22Team MemberRelationshipSpecialty Start DateEnd Date Sergio Sneed MD PCP - GeneralFamily Qdxezrpp72/17/19 Jian Rodriguez MD PhysicianUrology1 Keven Castaneda MD [address] [facility] 1 [place] [address] Bnyclcmzbu72/30/22 Graeme Vazquez MD [address] [facility] [place] [address] PhysicianHematology/Oncology12/26/22 Margot So, SUNIL [address] [place] [address] Specialty Care CoordinatorHematology/Oncology12/26/22 Patricia Conteh APRN.ARBORICULTURE INSTRUCTOR [address] [place] [address] [place] [address] Nurse PractitionerHematology/Oncology12/26/22Team MemberRelationshipSpecialty Start DateEnd Date Sergio Sneed MD PCP - GeneralFamily Qiezexuc02/17/19 Jian Rodriguez MD PhysicianUrolog10/28/19Te MemberRelationshipSpecialtyStart DateEnd Date Sergio Sneed MD PCP - GeneralFamily Cveukoga88/17/19 Jian Rodriguez MD PhysicianUrolog10/28/19 Keven Castaneda MD [address] [facility] [address] [place] [address] Guluepwhaw73/30/22 Graeme Vazquez MD [address] [place] [address] [place] [address] PhysicianHematology/Oncology12/26/22 Margot So, SUNIL [address] [place] [address] Specialty Care CoordinatorHematology/Oncology3 Patricia Conteh, PUBLIC SPEAKING PROFESSOR.ARBORICULTURE INSTRUCTOR [address] [place] [address] Nurse PractitionerHematology/Oncology12/26/22Team MemberRelationshipSpecialty Start DateEnd Date Sergio Sneed MD PCP - GeneralFamily Kquvntro81/17/19 Jian Rodriguez MD PhysicianUrolog10/28/19 Keven Castaneda MD [address] [facility] [address] [place] [address] Qtjrdrirju01/30/22 Graeme Vazquez MD [address] [place] [address] PhysicianHematology/Oncology12/26/22 Margot So, RN [address] [place] [address] Specialty Care CoordinatorHematology/Oncology12/26/22 Patricia Conteh, PUBLIC SPEAKING PROFESSOR.ARBORICULTURE INSTRUCTOR [address] [place] [address] Nurse PractitionerHematology/Oncology12/26/22Team MemberRelationshipSpecialty Start DateEnd Date Sergio Sneed MD PCP - GeneralFamily Vzcfuoty21/17/19 Jian Rodriguez MD PhysicianUrolog10/28/19 Keven Castaneda MD [address] [place] [address] Nuflgqufmb60/30/22 Graeme Vazquez MD [address] [place] [address] PhysicianHematology/Oncology12/26/22 Margot So, SUNIL [address] [facility] [place] [address] Specialty Care CoordinatorHematology/Oncology12/26/22 Patricia Conteh APRN.ARBORICULTURE INSTRUCTOR [address] [place] [address] [address] [place], [facility]70 Nurse PractitionerHematology/Oncology12/26/22Team MemberRelationshipSpecialty Start DateEnd Sergio Sneed MD PCP - GeneralFamily Xbiwzzyu27/17/19 Jian Rodriguez MD PhysicianUrolog10/28/19 Keven Castaneda MD [address] [facility] [address] [place] [address] Yzlijcpxil30/30/22 Graeme Vazquez MD [address] [place] [address] PhysicianHematology/Oncology12/26/22 Margot So, RN [address] [place] [address] Specialty Care CoordinatorHematology/Oncology12/26/22 Patricia Conteh, PUBLIC SPEAKING PROFESSOR.ARBORICULTURE INSTRUCTOR [address] [place] [address] Nurse PractitionerHematology/Oncology12/26/22Team MemberRelationshipSpecialty Start DateEnd Date Sergio Sneed MD PCP - GeneralFamily Wmyhbpia04/17/19 Jian Rodriguez MD PhysicianUrolog10/28/19 Keven Castaneda MD [address] [facility] [address] [place] [address] Tihuubwnjo17/30/22 Graeme Vazquze MD [address] [place] [address] PhysicianHematology/Oncology12/26/22 Margot So RN [address] [place] [address] Specialty Care CoordinatorHematology/Oncology12/26/22 Patricia Conteh, PUBLIC SPEAKING PROFESSOR.ARBORICULTURE INSTRUCTOR [address] [place] [address] Nurse PractitionerHematology/Oncology12/26/22Team MemberRelationshipSpecialty Start DateEnd Date Sergio Sneed MD PCP - GeneralFamily Vhgsbkim47/17/19 Jian Rodriguez MD PhysicianUrology1 Keven Castaneda MD [address] [facility] [address] [place] [address] Bmzxljjbpu88/30/22 Graeme Vazquez MD [address] [facility] [place] [address] PhysicianHematology/Oncology12/26/22 Margot So, RN [address] [facility] [place] [address] Specialty Care CoordinatorHematology/Oncology12/26/22 Patricia Conteh, MARSHA.ARBORICULTURE INSTRUCTOR [address] [place] [address] Nurse PractitionerHematology/Oncology12/26/22Team MemberRelationshipSpecialty Start DateEnd Date Sergio Sneed MD PCP - GeneralFamily Ymzqsxjv49/17/19 Jian Rodriguez MD PhysicianUrology1 Keven Castaneda MD [address] [facility] [address] [place] [address] Obklvobhih54/30/22 Graeme Vazquez MD [address] [place] [address] PhysicianHematology/Oncology3 Margot So, SUNIL [address] [place] [address] Specialty Care CoordinatorHematology/Oncology12/26/22 Patricia Conteh, PUBLIC SPEAKING PROFESSOR.ARBORICULTURE INSTRUCTOR [address] [place] [address] Nurse PractitionerHematology/Oncology12/26/22Team MemberRelationshipSpecialty Start DateEnd Date Sergio Sneed MD PCP - Generalmi Czyhqgbk08/17/19 Jian Rodriguez MD PhysicianUrolog10/28/19 Keven Castaneda MD [address] [place] [address] Ohjzndpahp92/30/22 Graeme Vazquez MD [address] [place] [address] PhysicianHematology/Oncology12/26/22 Margot So RN [address] [place] [address] Specialty Care CoordinatorHematology/Oncology12/26/22 Patricia Conteh, PUBLIC SPEAKING PROFESSOR.ARBORICULTURE INSTRUCTOR [address] [place] [address] Nurse PractitionerHematology/Oncology12/26/22Team MemberRelationshipSpecialty Start DateEnd Date Sergio Sneed MD PCP - GeneralFamily Vmcstjuz26/17/19 Jian Rodriguez MD PhysicianUrology1 Keven Castaneda MD [address] [facility] [address] [place] [address] Bejemuijel07/30/22 Graeme Vazquez MD [address] [place] [address] PhysicianHematology/Oncology12/26/22 Margot So, SUNIL [address] [place] [address] Specialty Care CoordinatorHematology/Oncology12/26/22 Patricia Conteh APRN.ARBORICULTURE INSTRUCTOR [address] [place] [address] Nurse PractitionerHematology/Oncology12/26/22Team MemberRelationshipSpecialty Start DateEnd Date Sergio Sneed MD PCP - GeneralFamily Xfffvpbx96/17/19 Jian Rodriguez MD PhysicianUrology1 Keven Castaneda MD [address] [facility] [address] [place] [facility] [place] [address] Wlylkonwgu57/30/22 Graeme Vazquez MD [address] [place] [address] PhysicianHematology/Oncology3 Margot So, SUNIL [address] [place] [address] Specialty Care CoordinatorHematology/Oncology3 Patricia Conteh, PUBLIC SPEAKING PROFESSOR.ARBORICULTURE INSTRUCTOR [address] [place] [address] [place] [address] Nurse PractitionerHematology/Oncology12/26/22Team MemberRelationshipSpecialty Start DateEnd Date Sergio Sneed MD PCP - GeneralFamily Hntfiaji30/17/19 Jian Rodriguez MD PhysicianUrolog10/28/19 Keven Castaneda MD [address] [facility] [address] [place] [address] Zifaclfodm64/30/22 Graeme Vazquez MD [address] [place] [address] [place] [address] PhysicianHematology/Oncology12/26/22 Margot So, SUNIL [address] [facility] [place] [address] Specialty Care CoordinatorHematology/Oncology12/26/22 Patricia Conteh, PUBLIC SPEAKING PROFESSOR.ARBORICULTURE INSTRUCTOR [address] [place] [address] [place] [address] Nurse PractitionerHematology/Oncology3Team MemberRelationshipSpecialty Start DateEnd Date Sergio Sneed MD PCP - GeneralFamily Bsliypmg45/17/19 Jian Rodriguez MD PhysicianUrolog10/28/19 Keven Castaneda MD [address] [place] [address] Uuzpqwuspk70/30/22 Graeme Vazquez MD [address] [place] [address] [place] [address] PhysicianHematology/Oncology12/26/22 Margot So, SUNIL [address] [facility] [address] [place] [id number] Specialty Care CoordinatorHematology/Oncology12/26/22 Patricia Conteh APRN.ARBORICULTURE INSTRUCTOR [address] [place] [address] [place] [address] Nurse PractitionerHematology/Oncology12/26/22Team MemberRelationshipSpecialty Start DateEnd Date Sergio Sneed MD PCP - GeneralFamily Gfhshmzv67/17/19 Jian Rodriguez MD PhysicianUrolog10/28/19 Keven Castaneda MD [address] [facility] [address] [place] [address] Cdlxbjhmnw74/30/22 Graeme Vazquez MD [address] [place] [address] PhysicianHematology/Oncology3 Margot So, RN [address] [place] [address] Specialty Care CoordinatorHematology/Oncology12/26/22 Patricia Conteh, PUBLIC SPEAKING PROFESSOR.ARBORICULTURE INSTRUCTOR [address] [place] [address] Nurse PractitionerHematology/Oncology12/26/22Team MemberRelationshipSpecialty Start DateEnd Date Sergio Sneed MD PCP - GeneralFamily Ihsrdfye91/17/19 Jian Rodriguez MD PhysicianUrolog10/28/19 Keven Castaneda MD [address] [facility] [address] [place] [address] Vkbfvlqihw28/30/22 Graeme Vazquez MD [address] [place] [address] PhysicianHematology/Oncology12/26/22 Margot So, SUNIL [address] [place] [address] Specialty Care CoordinatorHematology/Oncology12/26/22 Patricia Conteh, PUBLIC SPEAKING PROFESSOR.ARBORICULTURE INSTRUCTOR [address] [place] [id number] Nurse PractitionerHematology/Oncology3/15/23Team MemberRelationshipSpecialty Start DateEnd Date Sergio Sneed MD PCP - GeneralFamily Dtivjnfl27/17/19 Jian Rodriguez MD PhysicianUrolog10/28/19 Keven Castaneda MD [address] [facility] [address] [place] [address] Klroedysnq84/30/22 Graeme Vazquez MD [address] [facility] [place] [address] PhysicianHematology/Oncology12/26/22 Margot So, SUNIL [address] [facility] [place] [place] [address] Specialty Care CoordinatorHematology/Oncology12/26/22 Patricia Conteh APRN.ARBORICULTURE INSTRUCTOR [address] [facility] [place] [place] [address] Nurse PractitionerHematology/Oncology12/26/22Te MemberRelationshipSpecialty Start DateEnd Date Marilu Roach CNP [address] [place], [place] [id number] PCP - GeneralNurse Practitioner05/18/24 Jian Rodriguez MD PhysicianUrolog10/28/19 Keven Castaneda MD [address] [facility] [address] [place] [address] Wiyhnuobho15/30/22 Graeme Vazquez MD [address] [place] [id number] PhysicianHematology/Oncology3 Margot So, SUNIL [address] [place] [id number] Specialty Care CoordinatorHematology/Oncology12/26/22 Patricia Conteh, PUBLIC SPEAKING PROFESSOR.ARBORICULTURE INSTRUCTOR [address] [place] [address] [place] [id number] Nurse PractitionerHematology/Oncology12/26/22Team MemberRelationshipSpecialty Start DateEnd Date Sergio Sneed MD PCP - GeneralFamily Hleimxgt22/17//02/04 Jian Rodriguez MD PhysicianUrolog10/28/19 Keven Castaneda MD [address] [facility] [address] [place] [address] Xylhoegzvd09/30/22 Graeme Vazquez MD [address] [place] [id number] PhysicianHematology/Oncology12/26/22 Margot So, RN [address] [place] [id number] Specialty Care CoordinatorHematology/Oncology12/26/22 Patricia Conteh, PUBLIC SPEAKING PROFESSOR.ARBORICULTURE INSTRUCTOR [address] [place] [address] [place] [address] Nurse PractitionerHematology/Oncology12/26/22Team MemberRelationshipSpecialty Start DateEnd Date Sergio Sneed MD PCP - GeneralFamily Afjsgnnj81/17/ Jian Rodriguez MD PhysicianUrolog10/28/19 Keven Castaneda MD [address] [facility] [address] [place] [address] Fjsudzduug88/30/22 Graeme Vazquez MD [address] [place] [address] [place] [address] PhysicianHematology/Oncology12/26/22 Margot So, SUNIL [address] [place] [address] [place] [address] Specialty Care CoordinatorHematology/Oncology12/26/22 Patricia Conteh APRN.ARBORICULTURE INSTRUCTOR [address] [place] [address] [place] [address] Nurse PractitionerHematology/Oncology12/26/22Team MemberRelationshipSpecialty Start DateEnd Date Marilu Roach CNP [address] [facility] [place] [address] PCP - GeneralNurse Practitioner05/18/24 Jian Rodriguez MD PhysicianUrolog10/28/19 Keven Castaneda MD [address] [facility] [address] [place] [address] Blwjojyumh96/30/22 Graeme Vazquez MD [address] [facility] [place] [id number] PhysicianHematology/Oncology12/26/22 Margot So, RN [address] [facility] [place] [id number] Specialty Care CoordinatorHematology/Oncology12/26/22 Patricia Conteh APRN.[facility] [address] [facility] [place] [id number] Nurse PractitionerHematology/Oncology12/26/22Team MemberRelationshipSpecialty Start DateEnd Date Sergio Sneed MD PCP - GeneralFamily Xjfbdfbl84/17/198/02/04 Jian Rodriguez MD PhysicianUrolog10/28/19 Keven Castaneda MD [address] [facility] [address] [place] [address] Ghjpsphrcs29/30/22 Graeme Vazquez MD [address] [facility] [place] [id number] PhysicianHematology/Oncology12/26/22 Margot So, RN [address] [facility] [place] [id number] Specialty Care CoordinatorHematology/Oncology12/26/22 Patricia Conteh, PUBLIC SPEAKING PROFESSOR.ARBORICULTURE INSTRUCTOR [address] [facility] [place] [address] Nurse PractitionerHematology/Oncology12/26/22Team MemberRelationshipSpecialty Start DateEnd Date Sergio Sneed MD PCP - GeneralFamily Hirtvmvm99/17/ Jian Rodriguez MD PhysicianUrolog10/28/19 Keven Castaneda MD [address] [facility] [address] [place] [address] Ztbdwyeqlz79/30/22 Graeme Vazquez MD [address] [place] [address] PhysicianHematology/Oncology12/26/22 Margot So, RN [address] [facility] [place] [place] [address] Specialty Care CoordinatorHematology/Oncology12/26/22 Patricia Conteh, PUBLIC SPEAKING PROFESSOR.ARBORICULTURE INSTRUCTOR [address] [place] [id number] Nurse PractitionerHematology/Oncology12/26/22Team MemberRelationshipSpecialty Start DateEnd Date Marilu Roach CNP [address] [place] [facility] [place] [address] PCP - GeneralNurse Practitioner05/18/24 Jian Rodriguez MD PhysicianUrolog10/28/19 Keven Castaneda MD [address] [facility] [address] [place] [address] Pyxbdcbiqk92/30/22 Graeme Vazquez MD [address] [place] [address] [place] [id number] PhysicianHematology/Oncology12/26/22 Margot So, SUNIL [address] [place] [address] [place] [id number] Specialty Care CoordinatorHematology/Oncology12/26/22 Patricia Conteh APRN.ARBORICULTURE INSTRUCTOR [address] [place] [address] [place] [id number] Nurse PractitionerHematology/Oncology12/26/22Team MemberRelationshipSpecialty Start DateEnd Date Marilu Roach, PUBLIC SPEAKING PROFESSOR - ARBORICULTURE INSTRUCTOR [address] [place] [address] PCP - GeneralFamily Nurse Practitioner04/21/24Team MemberRelationshipSpecialty Start DateEnd Date Marilu Roach, PUBLIC SPEAKING PROFESSOR - ARBORICULTURE INSTRUCTOR [address] [place] [address] PCP - GeneralFamily Nurse Practitioner04/21/24Team MemberRelationshipSpecialty Start DateEnd Date Marilu Roach ARBORICULTURE INSTRUCTOR [address] [place] [address] PCP - GeneralNurse Practitioner05/18/24 Jian Rodriguez MD PhysicianUrolog10/28/19 Keven Castaneda MD [address] [facility] [address] [place] [address] Zhebniuhkw68/30/22 Graeme Vazquez MD [address] [place] [address] [place] [id number] PhysicianHematology/Oncology12/26/22 Margot So, SUNIL [address] [place] [address] [place] [id number] Specialty Care CoordinatorHematology/Oncology12/26/22 Patricia Conteh APRN.ARBORICULTURE INSTRUCTOR [address] [place] [address] [place] [id number] Nurse PractitionerHematology/Oncology12/26/22Team MemberRelationshipSpecialty Start DateEnd Date Marilu Roach, PUBLIC SPEAKING PROFESSOR - ARBORICULTURE INSTRUCTOR [address] [place] [address] PCP - GeneralFamily Nurse Practitioner04/21/24Team MemberRelationshipSpecialty Start DateEnd Date Marilu Roach, PUBLIC SPEAKING PROFESSOR - ARBORICULTURE INSTRUCTOR [address] [place] [address] PCP - GeneralFamily Nurse Practitioner04/21/24Team MemberRelationshipSpecialty Start DateEnd Date Marilu Roach ARBORICULTURE INSTRUCTOR [address] [place] [address] PCP - GeneralNurse Practitioner05/18/24 Jian Rodriguez MD PhysicianUrolog/ Keven Castaneda MD [address] [facility] [address] [place] [address] Uwybxoaikw37/30/22 Graeme Vazquez MD [address] [place] [address] [place] [id number] PhysicianHematology/Oncology12/26/22 Patricia Conteh APRN.ARBORICULTURE INSTRUCTOR [address] [place] [address] [place] [id number] Nurse PractitionerHematology/Oncology12/26/22Te MemberRelationshipSpecialty Start DateEnd Date MightMarilu, PUBLIC SPEAKING PROFESSOR-ARBORICULTURE INSTRUCTOR [address] [place] [facility] [address] PCP - GeneralFamily Medicine04/20/25Team MemberRelationshipSpecialtyStart DateEnd Date MightMarilu, PUBLIC SPEAKING PROFESSOR-ARBORICULTURE INSTRUCTOR [address] [place] [facility] [address] PCP - GeneralFamily Medicine04/20/25Team MemberRelationshipSpecialtyStart DateEnd Date MightMarilu, PUBLIC SPEAKING PROFESSOR-ARBORICULTURE INSTRUCTOR [address] [place] [facility] [address] PCP - GeneralFamily Medicine04/20/25Team MemberRelationshipSpecialtyStart DateEnd Date Marilu Roach, PUBLIC SPEAKING PROFESSOR-ARBORICULTURE INSTRUCTOR [address] [place] [facility] [address] PCP - GeneralFamily Medicine04/20/25Team MemberRelationshipSpecialtyStart DateEnd Date Might, Marilu Nelson, PUBLIC SPEAKING PROFESSOR-ARBORICULTURE INSTRUCTOR [address] [facility] [address]ena [facility] [place] [address] PCP - GeneralFamily Medicine04/20/25 Inactive Administered Medications - up to 3 most recent administrations Administered Medications (un recognized section and content) Medication OrderMAR ActionAction DateDoseRateSite NaCl 0.9% 500 mL INTRAVENOUS, at 500 mL/hr, Administer over 1 Hours, ONCE, 1 dose, On Sat11/29/23 at 1330 New Bag/Syringe/Sdxtem8811/29/2023 1:42 PM [id number] mL/hr pembrolizumab 200 mg in NaCl 0.9% 66 mL (KEYTRUDA) 200 mg, INTRAVENOUS, Administer over 30 Minutes, ONCE, 1 dose, On Sat11/29/23 at 1330, EXP: 11/29/2023 1930 RT Administer with 0.2 micron filter. New Bag/Syringe/Qwstuc6311/29/2023 2:16 PM [id number] mg Scheduled Active and Recently Administ ered Medications (unrecognized section and content) Medication Order// aspirin chewable tablet 324 mg (COMPLETED) 324 mg, Oral, ONCE, 1 dose, On 03/22/24 at 1900 * 1912 (Given - Provider: Beverly Tapia RN) Medication Order// iopamidol (ISOVUE-370) 76 % injection 75 mL 75 mL, IntraVENous, IMG ONCE PRN, 1 dose, Starting on 03/22/24 at 1836, Until Discontinued, Other * 1846 (Incomplete - Provider: Chelle Ryan) FOR RECORDS PERTAINING TO PATIENTS [...] BE BASED ON THE PRIMARY CLINICAL RECORDS. [facility] [employer] [facility]. provides no warranty or guarantee of the accuracy or completeness of information in this document.
--- OUTSIDE RECORDS SUMMARY | 2025-09-01 09:20 | XMS_ITS | CCD ---
Author Organization [facility] Care Team Providers Care Management Developer Name Role Phone PHYSICIAN, DEFAULT Unavailable Unavailable PHYSICIAN, DEFAULT Unavailable Unavailable PHYSICIAN, DEFAULT Unavailable Unavailable PHYSICIAN, DEFAULT Unavailable Unavailable Sergio Sneed MD Primary Care Provider Jian Rodriguez MD Unavailable Unavailable Mike BARBER, Lauren Barros Unavailable [phone] Soren Perea MD Unavailable Corazon Maxwell PA-C Unavailable Augusto Sauceda Unavailable Shawn Nelson Unavailable Sergio Sneed MD Primary Care Provider [phone] Jian Rodriguez MD Unavailable Unavailable Brit FOUNTAIN, Soren Unavailable [phone] Keven Castaneda MD Unavailable [phone] Sergio Sneed Primary Care Physician Sergio Sneed MD Primary Care Provider Graeme Vazquez MD Unavailable Saray BARBER, Margot Unavailable [phone] Patricia Conteh APRN.CNP Unavailable PAY ., DR [...] Rodriguez MD Unavailable Jian RODRIGUEZ Attending Unavailable Jain RODRIGUEZ Attending Unavailable Saray RN, Margot Unavailable [phone] Sergio Sneed MD Primary Care Provider [phone] Unavailable Primary Care Provider Unavailabl e Might Marilu CULVER Primary Care Provider Sergio Sneed MD Primary Care Provider [phone] Might GROUP PRACTICE PEDIATRICIAN - BUSINESS RECORDS MANAGER, Marilu Nelson Primary Care Provider MIGHT, MARILU [...] MIGHT, MARILU W Primary Care Unavailable Might GROUP PRACTICE PEDIATRICIAN-BUSINESS RECORDS MANAGER, Marilu Nelson Primary Care Provider SERGIO SNEED Primary Care Unavailable CARDIOLOG[facility], [facility] Consulting Unavailable KENNEDY, RD U Admitting Unavailable KENNEDY, RD U Attending Unavailable DIVISION OF INFECTIOUS DISEASE, [facility] Consulting Unavailable [place], CARDIOTHORACIC SURGEONS FOR [facility] Unavailable ONLY), IP WOUND CARE SERVICES (INPATIENT [...] Referring Unavailable AIDE, JESSICA Attending Unavailable LILY, OLIEV Referring Unavailable LILY, OLIVE Referring Unavailable MOUKARBEL, KEVEN Attending Unavailable Allergies Allergy ClassificationReported Allergen(s)Allergy TypeDate of OnsetReaction(s) Facility (20 sources)Adhesive Tape; Translations: [ADHESIVE TAPE (ROSINS)]Propensity to adverse reactions to fsugbxcnf87-25-0131Qhosy: See CommentsK[facility] (2 sources)Adhesive Tape; Translations: [Tape]Allergy to substanceBlister of skin without infection (disorder)[facility] (17 sources)DesonideDrug Bneeony15-89-7055Zpjixvh, Other (See Comments)[facility] (1 source)No Known Medication Allergies; Translations: [No Known Medication Allergies]Propensity to adverse reactions (disorder)[facility] (4 sources)Desonide; Translations: [DESONIDE]Drug Ztchnph94-95-0526Jwctvjvur[facility] (10 sources)Adhesive agent; Translations: [ADHESIVE]Propensity to adverse reactions to tqbb45-34-5811AvbdKwlWnhttb Health SystemNEGATED: Highlighted row has been ruled out! (1 source)Drug allergyExec[facility]rology of [facility] Medications Current Medications MedicationDrug Class(es)DatesSig (Normalized)Sig (Original)amLODIPine 10 mg oral tablet (20 sources)Dihydropyridine Calcium Channel BlockerStart: 50-71-4146syic 0.5 tablet by mouth in the morningamLODIPine (NORVASC) 10 mg tablet Take 0.5 tablets (5 mg total) by mouth in the morning. 5ActiveStart: 05-05-2018 End: 57-91-0890bnjw 1 tablet by mouth once daily at bedtimeamLODIPine (NORVASC) 10 mg tablet Take 10 mg by mouth daily at bedtime. 0 05/05/2018 05/03/2022 Disc ontinuedamLODIPine Besylate ActiveComment on above:Take 10 mg by mouth daily at bedtime. Take 10 mg by mouth once daily.aspirin 81 mg chewable tablet (20 sources)Platelet Aggregation Inhibitor, Nonsteroidal Anti-inflammatory Drug Start: 72-63-6855hxgbxct chewable tablet 324 mgaspirin 81 mg chewable tablet Chew 1 tablet (81 mg total) and swallow in the morning. Activetake 1 tablet by mouth once dailyaspirin, enteric coated (ASPIRIN, ENTERIC COATED) 81 mg EC tablet Take 81 mg by mouth once daily. ActiveBayer Aspirin ActiveComment on above:Take 81 mg by mouth once daily.atorvastatin 10 mg oral tablet (20 sources)HMG-CoA Reductase InhibitorStart: 93-66-5466ilit 1 tablet by mouth once dailyatorvastatin (LIPITOR) 10 mg tablet Indications: Other hyperlipidemia TAKE ONE TABLET BY MOUTH DAILY 90 tablet 1 03/05/2019 ActiveStart: 06-13-2018 take 1 tablet by mouth once dailyatorvastatin (LIPITOR) 80 mg tablet Take 80 mg by mouth once daily. 06/13/2018 ActiveLipitor ActiveComment on above:Take 10 mg by mouth once daily. balsalazide disodium 750 mg oral capsule (20 sources)AminosalicylateStart: 46-92-3120bzry 3 capsules by mouth three times dailybalsalazide (COLAZAL) 750 MG capsule Indications: Ulcerative pancolitis (HCC) Take 3 capsules by mouth 3 times daily 90 capsule 05/14/2024 ActiveStart: 97-12-2540ozjg 1 capsule by mouth in the morning, then take 1 capsule by mouth three times dailybalsalazide (COLAZAL) 750 mg capsule Take 1 capsule (750 mg total) by mouth in the morning. Take one three times daily . 06/25/2017 Active Start: 06-25-2017 End: 82-71-6732pejm 3 capsules by mouth once dailybalsalazide (COLAZAL) 750 mg capsule Take 2,250 mg by mouth once daily. 06/25/2017 12/24/2023 Discontinued (Discontinued by Patient)Start: 46-98-3898iddy 2 capsules by mouth once daily balsalazide (COLAZAL) 750 mg capsule Take 1,500 mg by mouth once daily. 0 06/25/2017 ActiveStart: 86-25-4041tkvu 2 capsules by mouth three times daily [...] daily.carvedilol 3.125 mg oral tablet (8 sources)alpha-Adrenergic Cayla, beta-Adrenergic BlockerStart: 02-28-2022 End: 98-17-8929etkjoyimav (COREG) 3.125 mg tabletCarvedilol ActiveCentrum (4 sources)Centrum ActiveCentrum Silver (1 source)Start: 92-73-7985Scahrum Silver Oral, Daily, Refill(s) 0 Start Date: 08/16/21 Status: Orderedcephalexin 500 mg oral capsule (6 sources)Cephalosporin AntibacterialStart: 04-23-2025 End: 46-93-0924mbkx 1 capsule by mouth three times dailyCEPHalexin (KEFLEX) 500 mg capsule Take 1 capsule (500 mg total) by mouth 3 (three) times a day for12 days. 36 capsule 04/23/2025 05/05/2025 ActiveStart: 01-04-2025 End: 53-44-2790wheb 1 capsule by mouth four times dailycephALEXin [...] tablet (10 sources)P2Y12 Platelet InhibitorStart: 04-21-2024 End: 71-77-6164dixhmyzqbhp (PLAVIX) 75 MG tablet Take 1 tablet [...] Food Allergenic Extract, Non-Standardized Plant Allergenic ExtractStart: 74-92-4477Nglckzona Start Date: 11/29/21 Status: Ordered End: 58-45-3707crdn 1 capsule by mouth twice dailyCranberry 500 mg cap Take 500 mg by mouth twice daily. 0 11/12/2022 DiscontinuedCranberry Activetake 1 capsule by mouth twice dailyCranberry 500 mg cap Take 500 mg by mouth twice daily. 0 ActiveComment on above:Take 500 mg by mouth twice daily. enteric contrast (will be provided with radiology test) (20 sources)Start: 73-30-9878rzvqsgq contrast (will be provided with radiology test) [...] guidelines 1 Each 10/23/2024 ActiveStart: 08-21-2024 End: 82-38-9495usozsec contrast (will be provided with radiology test) Indications: Malignant neoplasm of overlapping sites of bladder (HCC) For CT CHESTABD/PEL W IVCON Routine order Administer, As Directed One Time Only, via Oral, Rectal, both Oral and Rectal, Enteric Tube, Stoma or Indwelling Catheter, Enteric Contrast as designated per enteric contrast guidelines 1 Each 08/21/2024 10/23/2024 Discontinued (Course of therapy completed)Start: 86-34-3108xncbkcs contrast (will be provided with radiology test) Indications: Malignant neoplasm of overlapping sites of bladder (HCC) For CT CHESTABD/PEL W IVCON Routine order Administer, As Directed One Time Only, via Oral, Rectal, both Oral and Rectal, Enteric Tube, Stoma or Indwelling Catheter, Enteric Contrast as designated per enteric contrast guidelines 1 Each 08/21/2024 ActiveStart: 05-18-2024 End: 61-38-2819jsiynjc contrast (will be provided with radiology test) [...] 05/18/2024 10/23/2024 Discontinued (Course of therapy completed)Start: 39-33-3929vlxcfxw contrast (will be provided with radiology test) [...] enteric contrast guidelines 1 Each 05/18/2024 ActiveStart: 68-00-2985ewebvva contrast (will be provided with radiology test) [...] 1 Each 0 05/18/2024 ActiveStart: 12-20-2023 End: 74-37-7394glvzclz contrast (will be provided with radiology test) For CT CHESTABD/PEL W IVCON Routine order Administer, As Directed One Time Only, via Oral, Rectal, both Oral and Rectal, Enteric Tube, Stoma orIndwelling Catheter, Enteric Contrast as designated per enteric contrast guidelines 1 Each 0 024 12/21/2023 ExpiredStart: 07-18-2023 End: 50-53-7086iqmfydh contrast (will be provided with radiology test) For CT CHESTABD/PEL W IVCON Routine order Administer, As Directed One Time Only, via Oral, Rectal, both Oral and Rectal, Enteric Tube, Stoma orIndwelling Catheter, Enteric Contrast as designated per enteric contrast guidelines 1 Each 0 023 07/19/2023 ExpiredStart: 05-16-2023 End: 74-00-8878closcmz contrast (will be provided with radiology test) For CT CHESTABD/PEL W IVCON Routine order Administer, As Directed One Time Only, via Oral, Rectal, both Oral and Rectal, Enteric Tube, Stoma orIndwelling Catheter, Enteric Contrast as designated per enteric contrast guidelines 1 Each 05/16/2023 06/28/2023 Discontinued (Discontinued by Patient)Start: 05-16-2023 End: 99-13-3454tpvgxvx contrast (will be provided with radiology test) For CT CHESTABD/PEL W IVCON Routine order Administer, As Directed One Time Only, via Oral, Rectal, both Oral and Rectal, Enteric Tube, Stoma orIndwelling Catheter, Enteric Contrast as designated per enteric contrast guidelines 1 Each 0 023 06/28/2023 Discontinued (Discontinued by Patient)Start: 00-95-7018btuszxv contrast (will be provided with radiology test) For CT CHESTABD/PEL W IVCON Routine order Administer, As Directed One Time Only, via Oral, Rectal, both Oral and Rectal, Enteric Tube, Stoma orIndwelling Catheter, Enteric Contrast as designated per enteric contrast guidelines 1 Each 0 05/16/2023 ActiveStart: 08-06-2018 End: 40-79-9006nigdqza contrast (will be provided with radiology test) [...] 20 mg oral tablet (20 sources)Loop DiureticStart: 97-37-3515dcbx 1 tablet by mouth once daily furosemide [...] hydrochloride 1500 mg oral tablet (5 sources)Start: 49-75-6657jwct 1500 mg by mouth once dailyglucosamine 1,500 mg, Oral, Daily, Refills(s) 0 Start Date: 07/13/19 Status: OrderedGlucosamine VisvqoTmetvssmszg-Yhhvbzuzx-Twi C-Mn (GLUCOSAMINE 1500 COMPLEX) CAPS (5 sources)Qucckbxznaq-Ubwsmauro-Nrn C-Mn (GLUCOSAMINE 1500 COMPLEX) CAPS Take by mouth QddlbuUnzrjneuqax-Payrnvomm-Ohn C-Mn (GLUCOSAMINE 1500 COMPLEX) CAPS Take by mouth 0 Tguyxf44 hr guaiFENesin 600 mg extended release oral tablet (5 sources)Start: 04-23-2025 End: 04-18-0287lxgi 1 tablet by mouth onceguaiFENesin (MUCINEX) 600 mg tablet extended release 12hr Take 1 tablet (600 mg total) by mouth every 12 (twelve) hours for 14 days. 28 tablet 04/23/2025 05/07/2025 ActivehydrALAZINE hydrochloride 25 mg oral tablet (20 sources)Arteriolar VasodilatorStart: 64-03-4444fqkj 1 tablet by mouth three times dailyhydrALAZINE (APRESOLINE) 25 mg tablet Take 25 mg by mouth three times a day. 02/21/2022 ActiveStart: 14-28-8455mqjpKPTMCCB (APRESOLINE) 50 mg tablet Take 25 mg by mouth three times a day. 0 02/21/2022 ActiveStart: 86-71-7091bsox 1 tablet by mouth three times dailyhydrALAZINE (APRESOLINE) 50 mg tablet Take 50 mg by mouth three times daily. 0 02/21/2022 ActiveStart: 40-59-5294fveb 1 tablet by mouth four times dailyhydrALAZINE 10 mg Tab 10 mg = 1 tab(s), Oral, QID Start Date: 08/16/21 Status: OrderedhydrALAZINE HCl Active End: 04-59-1529eyxy 2 tablets by mouth three times dailyhydrALAZINE [...] 76 % injection 75 mL (1 source)Start: 09-75-2139esqcatuah (ISOVUE-370) 76 % injection 75 mLIron (1 source)take 1 tablet by mouth three times weeklyIron (Ferrous Sulfate) 325 (65 Fe) MG 1 tablet Orally Three times a Week Rqavxh24 hr isosorbide mononitrate 30 mg extended release oral tablet (20 sources)Nitrate VasodilatorStart: 04-09-2024 End: 64-68-5990jvccrfepnd mononitrate (IMDUR) 30 MG extended release tablet Take 1 tablet by mouth 04/09/2024 04/04/2025 ActiveComment on above:Take 30 mg by mouth once daily.isosorbide dinitrate 20 mg oral tablet (20 sources)Nitrate VasodilatorStart: 89-15-4411ddca 1 tablet by mouth three times dailyisosorbide dinitrate (ISORDIL) 20 mg tablet Take 20 mg by mouth three times a day. 08/15/2023 ActiveStart: 72-16-1815gvch 1 tablet by mouth twice dailyisosorbide dinitrate 10 mg Tab 10 mg = 1 tab(s), Oral, BID Start Date: 08/16/21 Status: Ordered End: 38-20-4049sysdbgbpgu dinitrate (ISORDIL) 10 mg tablet Take 20 mg by mouth three times daily. 0 12/31/2022 DiscontinuedIsosorbide Dinitrate ActiveComment on above:Take 20 mg by mouth three times daily.Take 20 mg by mouth three times a day.iv contrast (will be provided with radiology test) (20 sources)Start: 38-10-1585el contrast (will be provided with radiology test) [...] link. 1 Each 10/23/2024 ActiveStart: 08-21-2024 End: 14-23-9382yr contrast (will be provided with radiology test) [...] 10/23/2024 D iscontinued (Course of therapy completed)Start: 86-35-5817mh contrast (will be provided with radiology test) [...] link. 1 Each 08/21/2024 ActiveStart: 05-18-2024 End: 25-64-7106vq contrast (will be provided with radiology test) [...] 05/18/2024 10/23/2024 Discontinued (Course of therapy completed)Start: 96-50-0086bl contrast (will be provided with radiology test) [...] administration guidelines link. 1 Each 05/18/2024 ActiveStart: 53-28-6206ob contrast (will be provided with radiology test) [...] 1 Each 0 05/18/2024 ActiveStart: 12-20-2023 End: 83-25-7998jc contrast (will be provided with radiology test) [...] Each 0 12/20/2023 12/21/2023 ExpiredStart: 07-18-2023 End: 78-40-1929fj contrast (will be provided with radiology test) [...] Each 0 07/18/2023 07/19/2023 ExpiredStart: 05-16-2023 End: 60-40-1944pa contrast (will be provided with radiology test) [...] 12/24/2023 Discontinued (Discontinued by Patient)Start: 05-16-2023 End: 87-53-8403nm contrast (will be provided with radiology test) [...] 0 05/16/2023 12/24/2023 Discontinued (Discontinued by Patient)Start: 46-04-8577dt contrast (will be provided with radiology test) [...] link.1 Each 0 05/16/2023 ActiveStart: 08-06-2018 End: 53-13-8789ip contrast (will be provided with radiology test) [...] the CT contrast administration guidelines link.lactobacillus acidophilus [id number] unt oral capsule (6 sources)lactobacillus acidophilus 100 mg (1 billion cell) cap(s) Take by mouth. Activelevothyroxine sodium 0.025 mg oral tablet (20 sources)l-ThyroxineStart: 63-55-1956bgxd 1 tablet by mouth once daily in [...] oral tablet (20 sources)Angiotensin 2 Receptor BlockerStart: 36-41-8399sicmboni (COZAAR) 50 mg tablet Take 50 mg by mouth. 0 07/13/2019 ActiveStart: 05-15-2018 End: 47-39-1801gpou 1 tablet by mouth twice dailylosartan (COZAAR) [...] oxide 400 mg oral tablet (13 sources)Start: 86-27-9502mtwh 1 tablet by mouth in the morningmagnesium oxide (MAGOX) 400 mg tablet Take 1 tablet (400 mg total) by mouth in the morning. 30 tablet 2 2025 Activemagnesium oxide 400 mg magnesium tab Take 400 mg by mouth. Wutsgd26 hr metoprolol succinate 25 mg extended release oral tablet (20 sources)beta-Adrenergic BlockerStart: 08-16-2021 End: 88-17-8016plst 1 mg by mouth once dailymetoprolol 25 mg ER Tab mg tab(s), Oral, Daily Start Date: 08/16/21 Status: Orderedtake 2 tablets by mouth every twenty-four hours in the morningmetoprolol succinate XL (TOPROL XL) 25 mg 24 hr tablet Take 2 tablets (50 mg total) by mouth in themorning. Active End: 40-59-7294rmig 1 tablet by mouth twice dailymetoprolol tartrate, [...] disintegrating oral tablet (20 sources)Serotonin-3 Receptor AntagonistStart: 46-59-7458euiutcfxaah orally disintegrating (ZOFRAN ODT) 4 mg disintegrating tablet 11/18/2023 ActiveStart: 11-21-2021 End: 82-65-5843nqco 1 tablet by mouth every eight hours as neededondansetron (ZOFRAN) 8 mg tablet Take 1 tablet by mouth every 8 hours as needed for nausea/vomiting. 90 tablet 2 11/21/2021 05/03/2022 DiscontinuedComment on above: Take 1 tablet by mouth every 8 hours as needed for nausea/vomiting.pantoprazole 40 mg delayed release oral tablet (20 sources)Proton Pump InhibitorStart: 45-57-4044ocyvbzhqsfjz DR (PROTONIX) 40 mg tablet 08/15/2023 Active4 ml pembrolizumab 25 mg/ml injection (20 sources)Programmed Receptor-1 Blocking Antibodypembrolizumab (KEYTRUDA) 25 mg/mL injection Inject intravenously. Activepembrolizumab (KEYTRUDA) 100 MG/4ML SOLN Infuse intravenously ActiveKeytruda ActiveComment on above:Inject intravenously.predniSONE 20 mg oral tablet (20 sources)Start: 12-20-2023 End: 69-52-6924osjg 1 tablet by mouth once dailypredniSONE (DELTASONE) 20 mg tablet Take 1 tablet by mouth once daily. Prednisone 20 mg for 5 days then 10 mg daily. 60 tablet 03/30/2024 ActiveStart: 08-29-2023 End: 31-05-3238veut 4 tablets by mouth once dailypredniSONE (DELTASONE) 10 mg tablet Take 4 tablets by mouth once daily. 120 tablet 0 08/29/2023 09/28/2023 ActiveStart: 01-23-2023 End: 09-95-0300luch 1 tablet by mouth once dailypredniSONE (DELTASONE) [...] mg oral tablet (12 sources)PhenothiazineStart: 11-21-2021 End: 51-70-8276ygzo 1 tablet by mouth every six hours as neededprochlorperazine (COMPAZINE) 10 mg tablet Take 1 tablet by mouth every 6 hours as needed. 100 tablet 2 11/21/2021 05/03/2022 DiscontinuedComment on above:Take 1 tablet by mouth every 6 hours as needed.tamsulosin hydrochloride 0.4 mg oral capsule (20 sources)alpha-Adrenergic BlockerStart: 05-23-2022 End: 54-03-9388pxdm 1 capsule by mouth once dailytamsulosin (FLOMAX) 0.4 mg Take 1 capsule by mouth once daily. 30 capsule 5 05/31/2023 ActiveStart: 09-30-2019 End: 55-27-1728dthxvcupwo (FLOMAX) 0.4 mg Take 1 capsule by mouth once daily 30 minutes after the same meal 30 capsule 2 11/01/2021 ActiveStart: 05-04-2018 End: 71-16-7507jpgx 2 capsules by mouth once dailytamsulosin ER [...] (Original)acetaminophen 325 mg oral tablet (16 sources)Start: 00-65-5159otvq 2 tablets by mouth every four hours as needed acetaminophen (TYLENOL) 325 mg tablet Take 2 tablets by mouth every 4 hours as needed for pain. 30 tablet 0 05/23/2022 ActiveStart: 09-30-2019 End: 60-29-7978fpzy 2 tablets by mouth every four hours as neededacetaminophen (TYLENOL) 325 mg tablet Take 2 tablets by mouth every 4 hours as needed for Pain. 30 tablet 0 09/30/2019 05/03/2022 DiscontinuedComment on above:Take 2 tablets by mouth every 4 hours as needed for Pain.ciprofloxacin 250 mg oral tablet (1 source)Quinolone AntimicrobialStart: 04-02-3589mbno 1 tablet by mouth once dailyCipro 250 mg Tab 250 mg = 1 tab(s), Oral, Daily, Take 1 tablet the day before the procedure and 1 tablet after the procedure, # 2 tab(s), Refills(s) 0, Pharmacy: [facility] [id number], 167, cm, 12/05/22 9:25:00 EST, Height/Length Dosing, 84, kg, 12/05/22 9:25:00 ES... Start Date: 12/05/22 Status: Ordereddocusate sodium 100 mg oral capsule (5 sources)Start: 11-12-2022 End: 52-42-9773jtvy 1 capsule by mouth twice dailydocusate sodium (COLACE) 100 mg capsule Take 1 capsule by mouth twice daily for 14 days. Stop taking if you develop diarrhea or loose stools 28 capsule 0 11/12/2022 11/26/2022 Start: 46-47-3348qedy 1 capsule by mouth twice dailydocusate sodium (COLACE) 100 mg capsule Take 1 capsule by mouth twice daily. 10 capsule 0 05/23/2022 Active Comment on above:Take 1 capsule by mouth twice daily.Take 1 capsule by mouth twice daily for 14 days. Stop taking if you develop diarrhea or loose stools empagliflozin 10 mg oral tablet (20 sources)Sodium-Glucose Cotransporter 2 Inhibitor End: 78-00-4770iems 1 tablet by mouth once dailyempagliflozin (JARDIANCE) 10 MG tablet Take 1 tablet every day by oral route for 90 days. 09/10/2024 Discontinued (LIST CLEANUP)Comment on above:Take 10 mg by mouth daily with breakfast.enalapril maleate 5 mg oral tablet (9 sources)Angiotensin Converting Enzyme Inhibitor End: 37-84-6978gjyc 1 tablet by mouth once dailyenalapril (VASOTEC) 5 mg tablet Take 5 mg by mouth once daily. 04/04/2023 Discontinued (Changing Therapy/Dosage Form)Comment on above:Take 5 mg by mouth once daily.Fish Oil-Honeydew-3 Fatty Acids (FISH OIL) 300-1,000 mg cap (13 sources)take 1 capsule by mouth once dailyFish Oil-Honeydew-3 Fatty Acids (FISH OIL) 300-1,000 mg cap Take 2 g by mouth once daily. 0 ActiveComment on above: Take 2 g by mouth once daily. hydroCHLOROthiazide 25 mg / triamterene 37.5 mg oral tablet (1 source)Potassium-sparing Diuretic, Thiazide DiureticStart: 05-14-2018 End: 10-37-9400hykf 1 tablet by mouth once dailytriamterene-hydrochlorothiazide (MAXZIDE-25) 37.5-25 mg per tablet Take 1 tablet by mouth once daily. 0 05/14/2018 11/01/2021 DiscontinuedComment on above:Take 1 tablet by mouth once daily. Methylcellulose (1 source) End: 55-25-6843sakwmrpcfhurtax (CITRUCEL ORAL) Take 1 Tablespoonful by mouth once daily. 0 11/21/2021 DiscontinuedComment on above:Take 1 Tablespoonful by mouth once daily. omega-3 fatty acids/fish oil (FISH OIL-OMEGA-3 FATTY ACIDS) 300-1,000 mg cap (4 sources) End: 58-73-9664auqt 1 capsule by mouth once dailyomega-3 fatty [...] release oral capsule (20 sources)Proton Pump InhibitorStart: 25-22-5312xyio 20 mg by mouth once daily omeprazole 20 mg, Oral, Daily, Refills(s) 0 Start Date: 07/13/19 Status: Ordered Start: 06-27-2018 End: 08-86-6255zltb 1 capsule by mouth twice dailyomeprazole (PRILOSEC) [...] mg oral tablet (3 sources)Cholinergic Muscarinic AntagonistStart: 34-51-0066mwbl 1 tablet by mouth every eight hours as neededoxybutynin (DITROPAN) 5 mg tablet Take 1 tablet by mouth three times daily as needed (bladder spasms). 12 tablet 0 05/23/2022 ActiveComment on above:Take 1 tablet by mouth three times daily as needed (bladder spasms).oxyCODONE hydrochloride 5 mg oral tablet (7 sources)Opioid AgonistStart: 31-80-9868yaed 1 tablet by mouth every eight hours as needed for painoxyCODONE IR (ROXICODONE) 5 mg immediate release tablet Indications: Postoperative pain Take 1 tablet by mouth every 8 hours as needed for pain. 8 tablet 0 11/12/2022 ActiveStart: 33-78-9966dqxy 1 tablet by mouth every eight hours as needed for painoxyCODONE IR (ROXICODONE) 5 mg immediate release tablet Indications: Urothelial carcinoma (HCC) Take 1 tablet by mouth every 8 hours as needed for pain. 4 tablet 0 05/23/2022 ActiveComment on above: Take 1 tablet by mouth every 8 hours as needed for pain.potassium chloride 10 meq extended release oral capsule (20 sources)Start: 96-25-1403dzhgkkmit chloride SR (MICRO-K) 10 mEq CR capsule take 1 tablet by mouth twice dailypotassium chloride (K-TAB) 10 mEq tablet Take 10 mEq by mouth twice daily. ActivePotassium Chloride ActiveComment on above: Take 10 mEq by mouth twice daily. Problems Active Problems Problem ClassificationProblemDateDocumented DateEpisodic/ChronicAcute and unspecified renal failure (1 source)Chronic renal rdeqenp43-49-9630VmbeihfGnfdnmrq of urinary tract (2 sources)History of calculus of kidney; Translations: [Personal history of urinary calculi]Onset: 597130-27-6834BztjeexsAazgee of bladder (20 sources)Malignant tumor of urinary bladder; Translations: [Malignant neoplasm of bladder, unspecified]Onset: 969435-28-5798NrkumysJwixya of kidney and renal pelvis (20 sources)Malignant tumor of kidney; Translations: [Malignant neoplasm of unspecified kidney, except renal pelvis]Onset: 07-29-2019 Resolved: [id number] of other urinary organs (20 sources)Malignant tumor of ureter; 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]Onset: 50-68-6273PglfzjhDlfanw; other and unspecified primary (1 source)History of bladder iqmnwrpa93-89-1090DtscjlpbMltldfa dysrhythmias (7 sources)Atrial flutter; Translations: [Unspecified atrial flutter]Onset: 04-22-2024 Resolved: 097470-47-4698ZnsxxtpZmohifp kidney disease (20 sources)Chronic kidney disease stage 3; Translations: [Stage 3 chronic kidney disease]Onset: 778484-78-1141EmvxtndOdykiqh kidney disease (2 sources)Chronic kidney disease; Translations: [Chronic kidney disease, stage 3b]Onset: 04-62-8076Nncclvt ulcer of skin (2 sources)Skin ulcer; Translations: [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 sites with fat layer exposed]Onset: 384612-06-0069JbbdtgfWliknclslm disorders (12 sources)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; Translations: [Other atrioventricular block]Onset: hronic Congestive heart failure; nonhypertensive (9 sources)Acute systolic (congestive) heart failure; Translations: [Chronic systolic heart failure]Onset: 846499-71-6658YlcuzhyHkaomzqw atherosclerosis and other heart disease (2 sources)Atherosclerotic heart disease of [place] coronary artery without angina pectoris; Translations: [Atherosclerotic heart disease of [place] coronary artery without angina pectoris]Onset: 72-14-4579ChvsuzkDwsazors of mouth; excluding dental (1 source)Xerostomia; Translations: [Dry mouth, unspecified]56-19-4944Qyyrzoaa Disorders of lipid metabolism (17 sources)Pure hypercholesterolemia, unspecified; Translations: [Hyperlipidemia, unspecified]Onset: 796839-20-7614VuzlorgQtrbnmyipq disorders (20 sources)Gastroesophageal reflux disease without esophagitis; Translations: [Gastro-esophageal reflux disease without esophagitis]Onset: 08-10-2019 15-98-7512SigpiupLunkgrsqy hypertension (20 sources)Hypertensive disorder; Translations: [Essential (primary) hypertension]Onset: 684659-10-5943PmjyjneLapai valve disorders (1 source)Nonrheumatic mitral (valve) insufficiency; Translations: [NONRHEUMATIC MITRAL INSUFFICIENCY]Onset: 78-59-2024EyrsshvHkcaehlwzyn of prostate (3 sources)Benign prostatic hypertrophy with outflow obstruction; Translations: [Benign prostatic hyperplasia with lower urinary tract symptoms]Onset: 02-45-1517BwtyhkbXioczrygmioj with complications and secondary hypertension (20 sources)Hypertensive heart failure; Translations: [Hypertensive heart disease with heart failure]Onset: 564352-19-3247NuyqefgPsmpwix and fatigue (3 sources)Malaise and fatigue; Translations: [Other malaise]11-30-8840Czioztix Nutritional deficiencies (1 source)Vitamin D deficiency, unspecified; Translations: [VITAMIN D DEFICIENCY UNSPECIFIED]Onset: 16-83-0088OncscxgUqqz wounds of head; neck; and trunk (12 sources)Open wound of left chest wall; Translations: [Unspecified open wound of left front wall of thorax without penetration into thoracic cavity, initial encounter]Onset: 272143-48-4117OrxupvgyZksaqfjawcieki (1 source)Unspecified osteoarthritis, unspecified site; Translations: [UNSPECIFIED OSTEOARTHRITIS UNS SITE]Onset: 78-29-2269EuohuivOhqcm aftercare (1 source)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; Translations: [OTH ENVIRONMENTAL TEST TECHNICIAN CURRENT DRUG THERAPY]Onset: 69-44-1098LieojcipQudgd aftercare (1 source)longterm (current) use of aspirin; Translations: [HALF-WAY CURRENT USE OF ASPIRIN]Onset: 78-99-7206TxohwvbbBujfm diseases of kidney and ureters (1 source)Urinary tract obstruction; Translations: [Other obstructive and reflux uropathy]Onset: 52-96-5447IbilvkqaCjcdy gastrointestinal disorders (1 source)Diarrhea, unspecifiedEpisodicOther injuries and conditions due to external causes (10 sources)Open wound; Translations: [Other injury of unspecified body region, initial encounter]Onset: 093913-46-2286CqhhmehaTcvkd injuries and conditions due to external causes (7 sources)Surgical wound finding; Translations: [Other injury of unspecified body region, initial encounter]Onset: 855222-49-3300GfemgxpwVybks injuries and conditions due to external causes (2 sources)Other injury of unspecified body region, initial encounter; Translations: [Other injury of unspecified body region, initial encounter]Onset: 18-36-3975NjzqhuhoKrxsq lower respiratory disease (1 source)Shortness of breath; Translations: [SHORTNESS OF BREATH]Onset: 26-03-5411ImvvicopNbzwi lower respiratory disease (1 source)Shortness of breathOnset: 55-84-0759YqgqjnhkRhazf nervous system disorders (4 sources)Tremor, unspecified; Translations: [TREMOR UNSPECIFIED]Onset: 82-12-2633IcbxshtfXlmza non-epithelial cancer of skin (1 source)Personal history of other malignant neoplasm of skin; Translations: [PERSONAL HX OTH MALIG NEOPLASMSKIN]Onset: 63-05-2960ZatireuzStqdm nutritional; endocrine; and metabolic disorders (20 sources)Obese class I; Translations: [Obesity, unspecified]Onset: 03-27-2022 21-63-6428QvabkcwRuvcy nutritional; endocrine; and metabolic disorders (2 sources)Abnormal weight loss; Translations: [Abnormal weight loss]12-20-2023 EpisodicOther screening for suspected conditions (not mental disorders or infectious disease) (1 source)Imaging result abnormal; Translations: [Abnormal findings on diagnostic imaging of other specified body structures]19-55-6978PwfjgvpYxudnwvi enteritis and ulcerative colitis (20 sources)Ulcerative pancolitis; 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]Onset: 08-11-2019 Resolved: 525904-75-6238KuvslfyOmvhvthf codes; unclassified (1 source)Acquired absence of kidney; Translations: [ACQUIRED ABSENCE OF KIDNEY] Onset: 38-41-4804GopltzidIszwxcpe codes; unclassified (1 source)Acquired absence of other genital organ(s); Translations: [ACQUIRED ABSENCE OTH GENITAL ORGANS]Onset: 56-16-7998QgitvxyiKtyaevfn codes; unclassified (1 source)Other general symptoms and signs; Translations: [Other general symptoms]99-86-1827RpyapofjEbhqijaza and history of mental health and substance abuse codes (1 source)Personal history of nicotine dependence; Translations: [PERSONAL HISTORY OF NICOTINE DEPEND]Onset: 45-43-2404YlaucewbWdvh and subcutaneous tissue infections (2 sources)Abscess; Translations: [Cutaneous abscess, unspecified]Onset: 176228-15-2235UtxdshcmJakgjxt disorders (6 sources)Congenital hypothyroidism; 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]Onset: 257420-95-4591FnfioufVapzvesgbeyy (1 source)Drug therapy nyuqlnu21-23-3389Pvfienkcfavi (1 source)CHRN KIDNEY DISEASE STG 3 UNSP; Translations: [CHRN KIDNEY DISEASE STG 3 UNSP]Onset: 60-72-4508Pjrhvblbuytw (3 sources)Pacemaker Problem; Translations: [Pacemaker Problem]Onset: 04-19-2025 Unclassified (1 source)Juan Joseqamar Cunha coming for leadless pacemaker by Dr Nadine Celis coming by ground - stableOnset: 28-96-5265Kwkxfbjpizze (1 source)Wound CheckOnset: 52-56-7853Rsqkeau tract infections (1 source)Acute cystitis; Translations: [Acute cystitis without hematuria] Episodic Past or Other Problems Problem ClassificationProblemDateDocumented DateEpisodic/ChronicAcute and unspecified renal failure (20 sources)Acute injury of kidney; Translations: [Acute kidney failure, unspecified]Onset: 195838-94-4306PlztjhpxOatjos of bladder (1 source)Personal history of malignant neoplasm of bladder; Translations: [PERSONAL HX MALIG NEOPLASM BLADDER]Onset: 45-86-0993BydyylszEfrslf of other urinary organs (2 sources)History of malignant neoplasm of ureter; Translations: [Personal history of malignant neoplasm of ureter]Onset: 487285-53-8663Xngfgqaa Complication of device; implant or graft (18 sources)Disorder of cardiac pacemaker system; Translations: [Unspecified complication of cardiac and vascular prosthetic device, implant and graft, initial encounter]Onset: 487570-39-6932DjmgdyruSvsyxvqdnb associated with dizziness or vertigo (4 sources)Dizziness and giddiness; Translations: [DIZZINESS AND GIDDINESS] Onset: 36-03-0864YrdzpjnfPldwcguaov and other anemia (1 source)Anemia, unspecified; Translations: [ANEMIA UNSPECIFIED]Onset: 00-68-0105FjytznlcVovitkny mellitus without complication (1 source)Other abnormal glucose; Translations: [OTHER ABNORMAL GLUCOSE]Onset: 62-26-5094RpksfgwiKhwgxqkphemsp symptoms and ill-defined conditions (20 sources)Tre hematuria; Translations: [Gross hematuria]Onset: 11-09-2022 49-38-6343SclldvxvLmfh disorders (7 sources)Mood disordersOnset: 845419-45-8458Kcccrwngtfx chest pain (4 sources)Chest discomfort; Translations: [Other chest pain]Onset: 09-10-2024 69-04-1196BiojezvmOvzga diseases of kidney and ureters (20 sources)Hydronephrosis; Translations: [Unspecified hydronephrosis]Onset: 741152-20-4360GnyghflmBumzn lower respiratory disease (2 sources)Other forms of dyspnea; Translations: [Other forms of dyspnea]Onset: 70-06-6134AptroufuBqdnn screening for suspected conditions (not mental disorders or infectious disease) (7 sources)Patient encounter status; Translations: [Encounter for screening for other disorder]Onset: 41-59-6074SpzqmdscVrjsttxj codes; unclassified (20 sources)Absent kidney; Translations: [Acquired absence of kidney]Onset: 348784-50-9653DrgvkghoCmqtlii (8 sources)Syncope and collapse; Translations: [Syncope and collapse]Onset: 31-18-7730CplmrbylNgslkei disorders (6 sources)Disorder of thyroid gland; Translations: [Disorder of thyroid, unspecified]Onset: 220568-07-8293XbysrdedQwpzngfxfhvc (4 sources)Onset: 04-22-2024 Resolved: Results Test NameValueInterpretationReference RangeFacilityOffice Visiton 07-19-2025 Follow-up [id number] Juan Jose Austin 1940 M Date Provider Department Center 07/19/2025 KEVEN PULIDO Hos Family History Problem Relation Age of Onset Heart failure Mother Lung cancer Father Family Status - Relation Status Age at Mother Father Level of Service:85219 [place] OFFICE/OUTPATIENT ESTABLISHED MOD [facility] Onlyon 20-11-1283Mfgocm [id number] Juan Jose Austin 1940 M Date Provider Department Center 07/06/2025 [id number], HISTORICAL CARD Tamiko Hos Family History Problem Relation Age of Onset Heart failure Mother Lung cancer Father Family Status - Relation Status Age at Mother Father DeceasedNoHighland District HospitalNo Panel Informationon 81-73-2031Lojohbk in clinic today MANUALLY TRANSCRIBED RESULTSWestern [facility] Hospital Nkzbrd08vs [id number] consent for treatment obtained on 05/14/25 at 12:25pmNoHighland District Hospital36Left voicemail with patient to get verbal consent for treatment [facility]36Writer called patient son as well to see if he could get back in touch with us or have his father give us a call back before his appointment time.Normal [facility]36LVM another voicemail request a verbal consent for treatment for the patient to be seen today at 3:20[facility]36Called patient and left voicemail to get consent for treatment so telemed for 05/14/25 at 3:20 pm can be checked in.[facility] 37on [phone] to monitor for signs and symptoms of infection including fever, chills, shortness of breath, chest pain, abdominal pain, nausea, vomiting and diarrhea. Call our office if you notice any of these or go to the ED if needing toNormal [facility] HospitalTelemedicineon [id number] Juan Jose Austin 1940 Mel[place] Gray Provider Department [place] 05/14/2025 ADELINA RODGERS [facility] Family History Problem Relation Age of Onset Heart failure Mother Lung cancer Father Family Status - Relation Status Age at Mother Father Level of Service:69616 [place] OFFICE/OUTPATIENT ESTABLISHED LOW MDM 20 MIN (GT) Reason for Visit and Comments: Follow-up [[id number]][facility]36on Patient's daughter left a voicemail requesting to speak with Adilia. Daughter stated that she was instructed by the patient's wound care provider (Harpreet Avalos) to contact our office regarding the patient's antibiotics. Daughter's phone number is [phone].[facility] HospitalCBC WITH AUTO DIFFERENTIALon 69-47-2037UFHTEMEYI ABSOLUTE COUNT (10*3/UL) BY AUTOMATED COUNT0.0 10*3/uLNormal0.0-0.2[facility] HospitalComment on above:Performed By: #### MG #### [facility] ([facility]) [address] [place] [address] VIRBASOPHILS RELATIVE PERCENT BY AUTOMATED COUNT0.3 %Normal [facility] HospitalComment on above:Performed By: #### MG #### [facility] ([facility]) [address] [place] [address] VIRCELLAVISION DIFFERENTIAL TYPEAUTOMATED DIFFERENTIALNormal [facility] HospitalComment on above:Performed By: #### MG #### [facility] ([facility]) [address] [place] [address] VIREosinophils (Bld) [#/Vol]0.5 10*3/uLHigh0.0-0.4[facility] HospitalComment on above:Performed By: #### MG #### [facility] ([facility]) [address] [place] [address] VIREOSINOPHILS RELATIVE PERCENT BY AUTOMATED COUNT6.0 %Normal [facility] HospitalComment on above:Performed By: #### MG #### [facility] ([facility]) [address] [place] [address] VIRErythrocyte distribution width (RBC) [Ratio]15.6 %High 11.5-15[facility] HospitalComment on above:Performed By: #### MG #### [facility] ([facility]) [address] [place] [address] VIRHematocrit (Bld) [Volume fraction]33.6 %Pul45-42RfaKpczgi [facility] HospitalComment on above:Performed By: #### MG #### [facility] ([facility]) [address] [place] [address] VIRHemoglobin (Bld) [Mass/Vol]11.4 g/jZEkk59-71XvcIeooku [facility]ñiz HospitalComment on above:Performed By: #### MG #### [facility] ([facility]) [address] [place] [address] VIRLYMPHOCYTES ABSOLUTE COUNT (10*3/UL) BY AUTOMATED COUNT0.6 10*3/uLLow1.0-3.5[facility] HospitalComment on above:Performed By: #### MG #### [facility] ([facility]) [address] [place] [address] VIRLYMPHOCYTES RELATIVE PERCENT BY AUTOMATED COUNT6.7 %Normal [facility] HospitalComment on above:Performed By: #### MG #### [facility] ([facility]) [address] [place] [address] VIRMCH (RBC) [Entitic mass]29.0 kiEnfzpx45-95VjsXypeod [facility]ñiz HospitalComment on above:Performed By: #### MG #### [facility] ([facility]) [address] [place] [address] VIRMCHC (RBC) [Mass/Vol]34.1 g/qBRmiyjp74-41CvsDwklsz [facility] HospitalComment on above:Performed By: #### MG #### [facility] ([facility]) [address] [place] [address] VIRMCV (RBC) [Entitic vol]85 aKMwhtld66-850IjeNwlktm Muñiz HospitalComment on above:Performed By: #### MG #### [facility] ([facility]) [address] [place] [address] VIRMONOCYTES ABSOLUTE COUNT (10*3/UL) BY AUTOMATED COUNT0.6 10*3/uLNormal0.0-0.9[facility] HospitalComment on above:Performed By: #### MG #### [facility] ([facility]) [address] [place], [place] [address] VIRMONOCYTES RELATIVE PERCENT BY AUTOMATED COUNT6.5 %Normal [facility] HospitalComment on above:Performed By: #### MG #### [facility] ([facility]) [address] [place] [address] VIRNEUTROPHILS ABSOLUTE COUNT BY AUTOMATED COUNT7.1 10*3/uLHigh 1.5-6.6[facility] HospitalComment on above:Performed By: #### MG #### [facility] ([facility]) [address] [place] [address] VIRNEUTROPHILS RELATIVE PERCENT BY AUTOMATED COUNT80.5 %Normal [facility] HospitalComment on above:Performed By: #### MG #### [facility] ([facility]) [address] [place] [address] VIRPlatelet mean volume (Bld) [Entitic vol]7.3 fLNormal7-12 [facility] HospitalComment on above:Performed By: #### MG #### [facility] ([facility]) [address] [place] [address] VIRPlatelets (Bld) [#/Vol]187 10*3/cZWywcsw482-990LbxIximdo [facility] HospitalComment on above:Performed By: #### MG #### [facility] ([facility]) [address] [place] [address] VIRRBC COUNT3.94 X10E12/LLow4.1-5.7[facility] Comment on above:Performed By: #### MG #### [facility] ([facility]) [address] [place] [address] VIRWBC (Bld) [#/Vol]8.8 10*3/uLNormal4-11[facility] HospitalComment on above:Performed By: #### MG #### [facility] [facility] ([facility]) [address] [place] [address] VIRCOMPREHENSIVE METABOLIC PANELon 00-42-0454Zicooba [Mass/Vol] 3.2 g/dLNormal3.2-5.3[facility] HospitalComment on above:Performed By: #### MG #### [facility] ([facility]) [address] [place] [address] VIRALP [Catalytic activity/Vol]52 U/BIkfnzc74-422RblTtdzrq [facility] HospitalComment on above:Performed By: #### MG #### [facility] ([facility]) [address] [place] [address] VIRALT [Catalytic activity/Vol]13 U/LNormal<=40[facility] HospitalComment on above:Performed By: #### MG #### [facility] ([facility]) [address] [place] [address] VIRAnion gap [Moles/Vol]8 mmol/LNormal5-15[facility] HospitalComment on above:Performed By: #### MG #### [facility] ([facility]) [address] [place] [address] VIRAST [Catalytic activity/Vol]21 U/LNormal<=41[facility] HospitalComment on above:Performed By: #### MG #### [facility] ([facility]) [address] [place] [address] VIRBilirubin [Mass/Vol]0.3 mg/dLNormal0.3-1.2[facility] HospitalComment on above:Performed By: #### MG #### [facility] ([facility]) [address] [place] [address] VIRCalcium [Mass/Vol]7.8 mg/dLLow8.5-10.5[facility] HospitalComment on above:Performed By: #### MG #### [facility] ([facility]) [address] [place] [address] VIRChloride [Moles/Vol]108 mmol/QYeeern78-279LebPqbgrx [place] HospitalComment on above:Performed By: #### MG #### [facility] ([facility]) [address] [place] [address] VIRCO2 [Moles/Vol]27 mmol/FZraqiu20-89PwqLxlmce [facility] Comment on above:Performed By: #### MG #### [facility] ([facility]) [address] [place] [address] VIRCreatinine [Mass/Vol]1.54 mg/dLHigh0.60-1.30Pro[facility] HospitalComment on above:Result Comment: METHOD TRACEABLE TO IDMS STANDARD Performed By: #### MG #### [facility] ([facility]) [address] [place] [address] VIRGFR/1.73 sq M.predicted among non-blacks MDRD (S/P/Bld) [Vol rate/Area]44 mL/min/{1.73_m2}Low>=60ProMetrohealth Par[facility] Medical CenterComment on above: Result Comment: Reported eGFR is based on the CKD-EPI 2020 equation that does not use a race coefficient.Performed By: #### MG #### [facility] ([facility]) [address] [place] [address] VIRGlucose [Mass/Vol]123 mg/qAEmhe58-95RlqHhspok [place] HospitalComment on above:Performed By: #### MG #### [facility] ([facility]) [address] [place] [address] VIRPotassium [Moles/Vol]4.3 mmol/LNormal3.5-5.0Pro[facility] HospitalComment on above:Performed By: #### MG #### [facility] ([facility]) [address] [place] [address] VIRProtein [Mass/Vol]5.0 g/dLLow6.0-8.0ProMet[facility]health Parma Medical CenterComment on above:Performed By: #### MG #### [facility] ([facility]) [address] [place] [address] VIRSodium [Moles/Vol]143 mmol/GGmbeuf875-241BpiPnekaw [place] HospitalComment on above:Performed By: #### MG #### [facility] ([facility]) [address] [place] [address] VIRUrea nitrogen [Mass/Vol]25 mg/dLNormal5-27ProMet[facility]health [facility] Medical CenterComment on above:Performed By: #### MG #### [facility] ([facility]) [address] [place] [address] VIRMAGNESIUMon 21-47-4321Tagaxmhww [Mass/Vol]1.7 mg/dLLow 1.8-2.6ProMetrohealth Parma Medical CenterComment on above:Performed By: #### MG #### [facility] ([facility]) [address] [place] [address] VIRCBC WITH AUTO DIFFERENTIALon 65-02-3880WNUHVSCRQ ABSOLUTE COUNT (10*3/UL) BY AUTOMATED COUNT0.0 10*3/uLNormal0.0-0.2[facility] HospitalComment on above:Performed By: #### CBCA #### [facility] ([facility]) [address] [place] [address] VIRBASOPHILS RELATIVE PERCENT BY AUTOMATED COUNT0.2 %Normal Pro[facility] HealthComment on above:Performed By: #### CBCA #### [facility] ([facility]) [address] [place] [address] VIRCELLAVISION DIFFERENTIAL TYPEAUTOMATED DIFFERENTIALNormal Pro[facility] HealthComment on above:Performed By: #### CBCA #### [facility] ([facility]) [address] [place] [address] VIREosinophils (Bld) [#/Vol]0.0 10*3/uLNormal0.0-0.4[facility] HospitalComment on above:Performed By: #### CBCA #### [facility] ([facility]) [address] [place] [address] VIREOSINOPHILS RELATIVE PERCENT BY AUTOMATED COUNT0.0 %Normal [facility] HospitalComment on above:Performed By: #### CBCA #### [facility] ([facility]) [address] [place] [address] VIRErythrocyte distribution width (RBC) [Ratio]15.5 %High 11.5-15ProSum[facility] Campusca [facility] HospitalComment on above:Performed By: #### CBCA #### [facility] ([facility]) [address] [place] [address] VIRHematocrit (Bld) [Volume fraction]33.9 %Idu78-19YalIjcdwu [place] HospitalComment on above:Performed By: #### CBCA #### [facility] ([facility]) [address] [place] [address] VIRHemoglobin (Bld) [Mass/Vol]12.0 g/eWOru05-30WyhPltxdo [place] HospitalComment on above:Performed By: #### CBCA #### [facility] ([facility]) [address] [place] [address] VIRLYMPHOCYTES ABSOLUTE COUNT (10*3/UL) BY AUTOMATED COUNT0.3 10*3/uLLow1.0-3.5[facility] HospitalComment on above:Performed By: #### CBCA #### [facility] ([facility]) [address] [place] [address] VIRLYMPHOCYTES RELATIVE PERCENT BY AUTOMATED COUNT2.9 %Normal [facility] HospitalComment on above:Performed By: #### CBCA #### [facility] ([facility]) [address] [place] [address] VIRMCH (RBC) [Entitic mass]29.6 obMedhek92-26RyzJoobqo [facility] HospitalComment on above:Performed By: #### CBCA #### [facility] ([facility]) [address] [place] [address] VIRMCHC (RBC) [Mass/Vol]35.3 g/mJBogwnh80-75TknJcznpc [facility] HospitalComment on above:Performed By: #### CBCA #### [facility] ([facility]) [address] [place] [address] VIRMCV (RBC) [Entitic vol]84 hXOgbuqs70-647DthImdffk [place] HospitalComment on above:Performed By: #### CBCA #### [facility] ([facility]) [address] [place] [address] VIRMONOCYTES ABSOLUTE COUNT (10*3/UL) BY AUTOMATED COUNT0.6 10*3/uLNormal0.0-0.9ProKind[facility] Hospital [facility] HospitalComment on above:Performed By: #### CBCA #### [facility] ([facility]) [address] [place] [address] VIRMONOCYTES RELATIVE PERCENT BY AUTOMATED COUNT5.5 %Normal [facility] HospitalComment on above:Performed By: #### CBCA #### [facility] ([facility]) [address] [place] [address] VIRNEUTROPHILS ABSOLUTE COUNT BY AUTOMATED COUNT10.0 10*3/uL High1.5-6.6ProKindred Hospital [facility]ima HospitalComment on above:Performed By: #### CBCA #### [facility] ([facility]) [address] [place] [address] VIRNEUTROPHILS RELATIVE PERCENT BY AUTOMATED COUNT91.4 %Normal [facility] [place] HospitalComment on above:Performed By: #### CBCA #### [facility] ([facility]) [address] [place] [address] VIRPlatelet mean volume (Bld) [Entitic vol]7.5 fLNormal7-12 Comment on above:Performed By: #### CBCA #### [facility] ([facility]) [address] [place] [address] VIRPlatelets (Bld) [#/Vol]211 10*3/mEHhzfsl944-145ZxnUagmmp [place] HospitalComment on above:Performed By: #### CBCA #### [facility] ([facility]) [address] [place] [address] VIRRBC COUNT4.04 X10E12/LLow4.1-5.7 Comment on above:Performed By: #### CBCA #### [facility] ([facility]) [address] [place] [address] VIRWBC (Bld) [#/Vol]10.9 10*3/uLNormal4-11ProMetrohealth Parma Medical CenterComment on above:Performed By: #### CBCA #### [facility] ([facility]) [address] [place] [address] VIRCNPNon [id number] (HEMTSA) JUAN JOSE AUSTIN ([id number]) 1940 M Date Time Provider Department 04/22/25 GRAEME VAZQUEZ During your visit today, we recorded the following information about you: Shannan Castelan, RN 04/22/2025 9:11 AM Signed Pt scheduled for CT tomorrow. Currently hospitalized at [facility] in [place]. New defibrillator placed- site became reddened and [...] [N1*11/29/2023 Encounter Status:Closed by SHANNAN CASTELAN on 04/22/25NoToledo HospitalPREHENSIVE METABOLIC PANELon [id number] [Mass/Vol]3.2 g/dL Normal3.2-5.3ProMedProMedica [facility] HospitalComment on above:Performed By: #### CBCA #### [facility] ([facility]) [address] [place] [address] VIRALP [Catalytic activity/Vol]48 U/WEsactq02-833MdxYkangg [place] HospitalComment on above:Performed By: #### CBCA #### [facility] ([facility]) [address] [place] [address] VIRALT [Catalytic activity/Vol]14 U/LNormal<=40[facility] [place] HospitalComment on above:Performed By: #### CBCA #### [facility] ([facility]) [address] [place] [address] VIRAnion gap [Moles/Vol]9 mmol/LNormal5-15[facility] [place] HospitalComment on above:Performed By: #### CBCA #### [facility] ([facility]) [address] [place] [address] VIRAST [Catalytic activity/Vol]24 U/LNormal<=41[facility] HospitalComment on above:Performed By: #### CBCA #### [facility] ([facility]) [address] [place] [address] VIRBilirubin [Mass/Vol]0.3 mg/dLNormal0.3-1.2ProMedProMedica [facility]lower Hospital HospitalComment on above:Performed By: #### CBCA #### [facility] ([facility]) [address] [place] [address] VIRCalcium [Mass/Vol]8.0 mg/dLLow8.5-10.5PMercy Health St. Rita's Medical CenterComment on above:Performed By: #### CBCA #### [facility] ([facility]) [address] [place] [address] VIRChloride [Moles/Vol]111 mmol/YGxxz11-265IrdIewsch [place] HospitalComment on above:Performed By: #### CBCA #### [facility] ([facility]) [address] [place] [address] VIRCO2 [Moles/Vol]24 mmol/XZcdibw50-06PwiIhmopm [place] [facility] Comment on above:Performed By: #### CBCA #### [facility] ([facility]) [address] [place] [address] VIRCreatinine [Mass/Vol]1.48 mg/dLHigh0.60-1.30ProMetrohealth Parma Medical CenterComment on above:Result Comment: METHOD TRACEABLE TO IDMS STANDARD Performed By: #### CBCA #### [facility] ([facility]) [address] [place] [address] VIRGFR/1.73 sq M.predicted among non-blacks MDRD (S/P/Bld) [Vol rate/Area]46 mL/min/{1.73_m2}Low>=60ProMetrohealth Parma Medical CenterComment on above: Result Comment: Reported eGFR is based on the CKD-EPI 2020 equation that does not use a race coefficient.Performed By: #### CBCA #### [facility] ([facility]) [address] [place] [address] VIRGlucose [Mass/Vol]147 mg/mUYnbn60-23RqdZkqdpb [place] HospitalComment on above:Performed By: #### CBCA #### [facility] ([facility]) [address] [place] [address] VIRPotassium [Moles/Vol]4.3 mmol/LNormal3.5-5.0Pro[facility]ica [facility] HospitalComment on above:Performed By: #### CBCA #### [facility] ([facility]) [address] [place] [address] VIRProtein [Mass/Vol]4.9 g/dLLow6.0-8.0[facility] [place] HospitalComment on above:Performed By: #### CBCA #### [facility] ([facility]) [address] [place] [address] VIRSodium [Moles/Vol]144 mmol/RUyrzxf228-303QcfPjdeoy [place] HospitalComment on above:Performed By: #### CBCA #### [facility] ([facility]) [address] [place] [address] VIRUrea nitrogen [Mass/Vol]23 mg/dLNormal5-27[facility] [place] HospitalComment on above:Performed By: #### CBCA #### [facility] ([facility]) [address] [place] [address] VIRIONIZED CALCIUMon 55-23-4680QIVCIWS CALCIUM - ICAN4.6 mg/dL Normal4.5-5.3[facility] [place] HospitalComment on above:Performed By: #### CBCA #### [facility] ([facility]) [address] [place] [address] VIRMAGNESIUMon 40-18-9341Vmxitjcjh [Mass/Vol]1.9 mg/dLNormal 1.8-2.6ProKind[facility] Hospital [facility] HospitalComment on above:Performed By: #### CBCA #### [facility] ([facility]) [address] [place] [address] VIRVANCOMYCIN, RANDOMon 13-20-3164CMVTIPEOZS88.9 ug/mLNormal 5.0-40.0[facility] [place] HospitalComment on above:Order Comment: Peak 30-40 ug/mLTrough 5-20 ug/mlPerformed By: #### CBCA #### [facility] ([facility]) [address] [place] [address] VIRBEDSIDE GLUCOSEon 10-13-5604Xptawpe [Mass/Vol]160 mg/dLHigh 65-99Pro[facility] HospitalComment on above:Performed By: #### CBCA #### [facility] ([facility]) [address] [place] [address] VIRCBC WITH AUTO DIFFERENTIALon 95-43-3068HRANRLAJT ABSOLUTE COUNT (10*3/UL) BY AUTOMATED COUNT0.0 10*3/uLNormal0.0-0.2[facility] [place] HospitalComment on above:Performed By: #### WCSUP #### [facility] ([facility]) [address] [place] [address] VIRBASOPHILS RELATIVE PERCENT BY AUTOMATED COUNT0.7 %Normal Comment on above:Performed By: #### WCSUP #### [facility] ([facility]) [address] [place] [address] VIRCELLAVISION DIFFERENTIAL TYPEAUTOMATED DIFFERENTIALNormal [facility] HospitalComment on above:Performed By: #### WCSUP #### [facility] ([facility]) [address] [place] [address] VIREosinophils (Bld) [#/Vol]0.4 10*3/uLNormal0.0-0.4Pro[facility] HospitalComment on above:Performed By: #### WCSUP #### [facility] ([facility]) [address] [place] [address] VIREOSINOPHILS RELATIVE PERCENT BY AUTOMATED COUNT6.7 %Normal [facility] HospitalComment on above:Performed By: #### WCSUP #### [facility] ([facility]) [address] [place] [address] VIRErythrocyte distribution width (RBC) [Ratio]15.7 %High 11.5-15Pro[facility] HospitalComment on above:Performed By: #### WCSUP #### [facility] ([facility]) [address] [place] [address] VIRHematocrit (Bld) [Volume fraction]36.3 %Hqm32-33YszZfcoyj [place] HospitalComment on above:Performed By: #### WCSUP #### [facility] ([facility]) [address] [place] [address] VIRHemoglobin (Bld) [Mass/Vol]12.6 g/aBVcm09-19HqpFijurw [place] HospitalComment on above:Performed By: #### WCSUP #### [facility] ([facility]) [address] [place] [address] VIRLYMPHOCYTES ABSOLUTE COUNT (10*3/UL) BY AUTOMATED COUNT0.6 10*3/uLLow1.0-3.5[facility] [place] HospitalComment on above:Performed By: #### WCSUP #### [facility] ([facility]) [address] [place] [address] VIRLYMPHOCYTES RELATIVE PERCENT BY AUTOMATED COUNT11.3 %Normal [facility] [place] HospitalComment on above:Performed By: #### WCSUP #### [facility] ([facility]) [address] [place] [address] VIRMCH (RBC) [Entitic mass]29.1 ieFoineg30-85VjuYydong [place] HospitalComment on above:Performed By: #### WCSUP #### [facility] ([facility]) [address] [place] [address] VIRMCHC (RBC) [Mass/Vol]34.7 g/tFPeangw95-32IywRbsenu [place] HospitalComment on above:Performed By: #### WCSUP #### [facility] ([facility]) [address] [place] [address] VIRMCV (RBC) [Entitic vol]84 wRLtxwed10-593PypEqjnnd Muñiz HospitalComment on above:Performed By: #### WCSUP #### [facility] ([facility]) [address] [place] [address] VIRMONOCYTES ABSOLUTE COUNT (10*3/UL) BY AUTOMATED COUNT0.4 10*3/uLNormal0.0-0.9Pro[facility] HospitalComment on above:Performed By: #### WCSUP #### [facility] ([facility]) [address] [place] [address] VIRMONOCYTES RELATIVE PERCENT BY AUTOMATED COUNT6.3 %Normal [facility] HospitalComment on above:Performed By: #### WCSUP #### [facility] ([facility]) [address] [place] [address] VIRNEUTROPHILS ABSOLUTE COUNT BY AUTOMATED COUNT4.2 10*3/uL Normal1.5-6.6Pro[facility] HospitalComment on above:Performed By: #### WCSUP #### [facility] ([facility]) [address] [place] [address] VIRNEUTROPHILS RELATIVE PERCENT BY AUTOMATED COUNT75.0 %Normal [facility] HospitalComment on above:Performed By: #### WCSUP #### [facility] ([facility]) [address] [place] [address] VIRPlatelet mean volume (Bld) [Entitic vol]7.4 fLNormal7-12 [facility] HospitalComment on above:Performed By: #### WCSUP #### [facility] ([facility]) [address] [place] [address] VIRPlatelets (Bld) [#/Vol]201 10*3/qBXusqwx001-564HmbQbjruj [place] HospitalComment on above:Performed By: #### WCSUP #### [facility] ([facility]) [address] [place] [address] VIRRBC COUNT4.34 X10E12/LNormal4.1-5.7[facility] Comment on above:Performed By: #### WCSUP #### [facility] ([facility]) [address] [place] [address] VIRWBC (Bld) [#/Vol]5.6 10*3/uLNormal4-11[facility] HospitalComment on above:Performed By: #### WCSUP #### [facility] ([facility]) [address] [place] [address] VIRCOMPREHENSIVE METABOLIC PANELon 91-53-4279Khvdssb [Mass/Vol] 3.5 g/dLNormal3.2-5.3[facility] [place] HospitalComment on above:Performed By: #### WCSUP #### [facility] ([facility]) [address] [place] [address] VIRALP [Catalytic activity/Vol]51 U/JQtqxrk49-541UuoRfvwdb [facility] HospitalComment on above:Performed By: #### WCSUP #### [facility] ([facility]) [address] [place] [address] VIRALT [Catalytic activity/Vol]9 U/LNormal<=40[facility] HospitalComment on above:Performed By: #### WCSUP #### [facility] ([facility]) [address] [place] [address] VIRAnion gap [Moles/Vol]6 mmol/LNormal5-15[facility] HospitalComment on above:Performed By: #### WCSUP #### [facility] ([facility]) [address] [place] [address] VIRAST [Catalytic activity/Vol]19 U/LNormal<=41[facility] HospitalComment on above:Performed By: #### WCSUP #### [facility] ([facility]) [address] [place] [address] VIRBilirubin [Mass/Vol]0.5 mg/dLNormal0.3-1.2PMercy Health St. Rita's Medical CenterComment on above:Performed By: #### WCSUP #### [facility] ([facility]) [address] [place] [address] VIRCalcium [Mass/Vol]8.5 mg/dLNormal8.5-10.5PMercy Health St. Rita's Medical CenterComment on above:Performed By: #### WCSUP #### [facility] ([facility]) [address] [place] [address] VIRChloride [Moles/Vol]110 mmol/IMhnt00-203IfvFsdnzbMetrohealth Parma Medical CenterComment on above:Performed By: #### WCSUP #### [facility] ([facility]) [address] [place] [address] VIRCO2 [Moles/Vol]28 mmol/LRpfwxr14-86LxkHazsrv [facility] Comment on above:Performed By: #### WCSUP #### [facility] ([facility]) [address] [place] [address] VIRCreatinine [Mass/Vol]1.43 mg/dLHigh0.60-1.30ProMetrohealth Parma Medical CenterComment on above:Result Comment: METHOD TRACEABLE TO IDMS STANDARD Performed By: #### WCSUP #### [facility] ([facility]) [address] [place] [address] VIRGFR/1.73 sq M.predicted among non-blacks MDRD (S/P/Bld) [Vol rate/Area]48 mL/min/{1.73_m2}Low>=60ProMetrohealth Parma Medical CenterComment on above: Result Comment: Reported eGFR is based on the CKD-EPI 2020 equation that does not use a race coefficient.Performed By: #### WCSUP #### [facility] ([facility]) [address] [place] [address] VIRGlucose [Mass/Vol]104 mg/pHQsrp04-92QjjRfksyy Muñiz HospitalComment on above:Performed By: #### WCSUP #### [facility] ([facility]) [address] [place] [address] VIRPotassium [Moles/Vol]4.0 mmol/LNormal3.5-5.0[facility] HospitalComment on above:Performed By: #### WCSUP #### [facility] ([facility]) [address] [place] [address] VIRProtein [Mass/Vol]5.3 g/dLLow6.0-8.0[facility] HospitalComment on above:Performed By: #### WCSUP #### [facility] ([facility]) [address] [place] [address] VIRSodium [Moles/Vol]144 mmol/OHlawed559-520MpnYxsvwa [facility]ñiz HospitalComment on above:Performed By: #### WCSUP #### [facility] ([facility]) [address] [place] [address] VIRUrea nitrogen [Mass/Vol]22 mg/dLNormal5-27[facility] HospitalComment on above:Performed By: #### WCSUP #### [facility] ([facility]) [address] [place] [address] VIRMAGNESIUMon 84-68-4020Qdahjhpme [Mass/Vol]2.0 mg/dLNormal 1.8-2.6[facility] HospitalComment on above:Performed By: #### WCSUP #### [facility] ([facility]) [address] [place] [address] VIRREPEATED ABORHon 62-37-2616QOC_RWMGFKUegpntWgpUgpwvt Muñiz HospitalComment on above:Performed By: #### WCSUP #### [facility] ([facility]) [address] [place] [address] VIRRH_INTEPPositiveNormalProMedica Muñiz HospitalComment on above:Performed By: #### WCSUP #### [facility] ([facility]) [address] [place] [address] VIRTYPE AND SCREENon 33-66-3499YET_XWNZXFRomzrsDuoSayhap [place] HospitalComment on above:Performed By: #### WCSUP #### [facility] ([facility]) [address] [place] [address] VIRRH_INTEPPositiveNormalProMedica [place] HospitalComment on above:Performed By: #### WCSUP #### [facility] ([facility]) [address] [place] [address] VIRVANCOMYCIN, RANDOMon 62-72-1550QSLVGRYOJU47.5 ug/mLNormal 5.0-40.0[facility] [place] HospitalComment on above:Order Comment: Along with Rare Normal Skin [place].Performed By: #### WCSUP #### [facility] ([facility]) [address] [place] [address] VIRWOUND CULTURE SURGICAL DEEP INCLUDES GRAM STAINon 04-21-2025 WOUND CULTURE SURGICAL DEEP INCLUDES GRAM STAINCULTURE RESULTS NO GROWTH 2 DAYS GRAM STAIN 10 to 24 White Blood Cells/LPF 0 Squamous Epithelial Cells/LPF No organisms seenNoalComfresenius medical care at [facility] on above:Order Comment: Pre-op diagnosis:pocket errosion, chbPerformed By: #### CBCA #### [facility] ([facility]) [address] [place] [address] VIRWOUND CULTURE SURGICAL DEEP INCLUDES GRAM STAINCULTURE [...] F Cefazolin S F Susceptibility Comment FNormalProMedica Morrow County HospitalComment on above:Order Comment: Pre-op diagnosis:pocket errosion, chbPerformed By: #### CBCA #### [facility] ([facility]) [address] [place] [address] VIRWOUND CULTURE SURGICAL DEEP INCLUDES GRAM STAINCULTURE [...] F Vancomycin S <=^0.5 F Susceptibility Comment FNormalProMetrohealth Parma Medical CenterComment on above:Order Comment: Pre-op diagnosis:pocket errosion, chbPerformed By: #### CBCA #### [facility] ([facility]) [address] [place] [address] VIRXR CHEST 1 VWon [id number] CHEST 1 VWXR CHEST 1 VW Single [...] by Lio Licea MD on 04/21/2025 9:14 PMNormalProMetrohealth Parma Medical CenterBLOOD CULTUREon [id number] identified Cx Nom (Bld)CULTURE RESULTS NO GROWTH 5 DAYSNormalComment on above:Order Comment: Along with Rare Normal Skin [place].Performed By: #### WCSUP #### [facility] ([facility]) [address] [place] [address] VIRCBC WITH AUTO DIFFERENTIALon 20-07-8841DIBTBWSXD ABSOLUTE COUNT (10*3/UL) BY AUTOMATED COUNT0.1 10*3/uLNormal0.0-0.2[facility] HospitalComment on above:Performed By: #### CBCA #### [facility] ([facility]) [address] [place] [address] VIRBASOPHILS RELATIVE PERCENT BY AUTOMATED COUNT1.1 %Normal Comment on above:Performed By: #### CBCA #### [facility] ([facility]) [address] [place] [address] VIRCELLAVISION DIFFERENTIAL TYPEAUTOMATED DIFFERENTIALNormal Comment on above:Performed By: #### CBCA #### [facility] ([facility]) [address] [place] [address] VIREosinophils (Bld) [#/Vol]0.2 10*3/uLNormal0.0-0.4[facility] HospitalComment on above:Performed By: #### CBCA #### [facility] ([facility]) [address] [place] [address] VIREOSINOPHILS RELATIVE PERCENT BY AUTOMATED COUNT4.5 %Normal [facility] HospitalComment on above:Performed By: #### CBCA #### [facility] ([facility]) [address] [place] [address] VIRErythrocyte distribution width (RBC) [Ratio]15.6 %High 11.5-15[facility] HospitalComment on above:Performed By: #### CBCA #### [facility] ([facility]) [address] [place] [address] VIRHematocrit (Bld) [Volume fraction]37.1 %Zth53-68CxeZcvntq Muñiz HospitalComment on above:Performed By: #### CBCA #### [facility] ([facility]) [address] [place] [address] VIRHemoglobin (Bld) [Mass/Vol]12.9 g/nKYuh59-26GveWsyofl [place] HospitalComment on above:Performed By: #### CBCA #### [facility] ([facility]) [address] [place] [address] VIRLYMPHOCYTES ABSOLUTE COUNT (10*3/UL) BY AUTOMATED COUNT0.7 10*3/uLLow1.0-3.5[facility]ñiz HospitalComment on above:Performed By: #### CBCA #### [facility] ([facility]) [address] [place] [address] VIRLYMPHOCYTES RELATIVE PERCENT BY AUTOMATED COUNT14.7 %Normal [facility] HospitalComment on above:Performed By: #### CBCA #### [facility] ([facility]) [address] [place] [address] VIRMCH (RBC) [Entitic mass]29.1 uhCvqmpv50-68RsnMgjpet Muñiz HospitalComment on above:Performed By: #### CBCA #### [facility] ([facility]) [address] [place] [address] VIRMCHC (RBC) [Mass/Vol]34.8 g/yEKzstgr93-53ChdVdvecg Muñiz HospitalComment on above:Performed By: #### CBCA #### [facility] ([facility]) [address] [place] [address] VIRMCV (RBC) [Entitic vol]84 aBVshqnr84-368CahVkiaaf Muñiz HospitalComment on above:Performed By: #### CBCA #### [facility] ([facility]) [address] [place] [address] VIRMONOCYTES ABSOLUTE COUNT (10*3/UL) BY AUTOMATED COUNT0.3 10*3/uLNormal0.0-0.9ProSum[facility] Campusca [place] HospitalComment on above:Performed By: #### CBCA #### [facility] ([facility]) [address] [place] [address] VIRMONOCYTES RELATIVE PERCENT BY AUTOMATED COUNT7.0 %Normal [facility] HospitalComment on above:Performed By: #### CBCA #### [facility] ([facility]) [address] [place] [address] VIRNEUTROPHILS ABSOLUTE COUNT BY AUTOMATED COUNT3.5 10*3/uL Normal1.5-6.6Pro[facility]ñiz HospitalComment on above:Performed By: #### CBCA #### [facility] ([facility]) [address] [place] [address] VIRNEUTROPHILS RELATIVE PERCENT BY AUTOMATED COUNT72.7 %Normal [facility] HospitalComment on above:Performed By: #### CBCA #### [facility] ([facility]) [address] [place] [address] VIRPlatelet mean volume (Bld) [Entitic vol]7.3 fLNormal7-12 [facility] HospitalComment on above:Performed By: #### CBCA #### [facility] ([facility]) [address] [place] [address] VIRPlatelets (Bld) [#/Vol]205 10*3/bXFinkgd466-304IopGfdfht [facility] HospitalComment on above:Performed By: #### CBCA #### [facility] ([facility]) [address] [place] [address] VIRRBC COUNT4.44 X10E12/LNormal4.1-5.7ProSum[facility] on above:Performed By: #### CBCA #### [facility] ([facility]) [address] [place] [address] VIRWBC (Bld) [#/Vol]4.8 10*3/uLNormal4-11[facility] HospitalComment on above:Performed By: #### CBCA #### [facility] ([facility]) [address] [place] [address] VIRCOMPREHENSIVE METABOLIC PANELon 46-01-6607Mkqgmpn [Mass/Vol] 3.5 g/dLNormal3.2-5.3[facility] HospitalComment on above:Performed By: #### CMP #### [facility] ([facility]) [address] [place] [address] VIRALP [Catalytic activity/Vol]55 U/BQuzeit95-981YanHajcji [facility] HospitalComment on above:Performed By: #### CMP #### [facility] ([facility]) [address] [place] [address] VIRALT [Catalytic activity/Vol]10 U/LNormal<=40[facility]ñiz HospitalComment on above:Performed By: #### CMP #### [facility] ([facility]) [address] [place], [place] [address] VIRAnion gap [Moles/Vol]8 mmol/LNormal5-15[facility] HospitalComment on above:Performed By: #### CMP #### [facility] ([facility]) [address] [place] [address] VIRAST [Catalytic activity/Vol]23 U/LNormal<=41[facility] HospitalComment on above:Performed By: #### CMP #### [facility] ([facility]) [address] [place] [address] VIRBilirubin [Mass/Vol]0.3 mg/dLNormal0.3-1.2[facility] HospitalComment on above:Performed By: #### CMP #### [facility] ([facility]) [address] [place] [address] VIRCalcium [Mass/Vol]8.3 mg/dLLow8.5-10.5[facility]ñiz HospitalComment on above:Performed By: #### CMP #### [facility] ([facility]) [address] [place] [address] VIRChloride [Moles/Vol]110 mmol/YYdvq35-096PewLfxynx Muñiz HospitalComment on above:Performed By: #### CMP #### [facility] ([facility]) [address] [place] [address] VIRCO2 [Moles/Vol]25 mmol/HEeneql95-23XfzMwlzyk [facility] Comment on above:Performed By: #### CMP #### [facility] ([facility]) [address] [place] [address] VIRCreatinine [Mass/Vol]1.58 mg/dLHigh0.60-1.30[facility] HospitalComment on above:Result Comment: METHOD TRACEABLE TO IDMS STANDARD Performed By: #### CMP #### [facility] ([facility]) [address] [place] [address] VIRGFR/1.73 sq M.predicted among non-blacks MDRD (S/P/Bld) [Vol rate/Area]43 mL/min/{1.73_m2}Low>=60ProSum[facility] Campusca [facility] HospitalComment on above: Result Comment: Reported eGFR is based on the CKD-EPI 2020 equation that does not use a race coefficient.Performed By: #### CMP #### [facility] ([facility]) [address] [place] [address] VIRGlucose [Mass/Vol]93 mg/jBQxiapt72-23LtlMrcnhg [place] HospitalComment on above:Performed By: #### CMP #### [facility] ([facility]) [address] [place] [address] VIRPotassium [Moles/Vol]3.4 mmol/LLow3.5-5.0ProKind[facility] Hospital [facility]ima HospitalComment on above:Performed By: #### CMP #### [facility] ([facility]) [address] [place] [address] VIRProtein [Mass/Vol]5.7 g/dLLow6.0-8.0Pro[facility]ima HospitalComment on above:Performed By: #### CMP #### [facility] ([facility]) [address] [place] [address] VIRSodium [Moles/Vol]143 mmol/BNthlel773-109BsnTdrrki [place] HospitalComment on above:Performed By: #### CMP #### [facility] ([facility]) [address] [place] [address] VIRUrea nitrogen [Mass/Vol]25 mg/dLNormal5-27Pro[facility] HospitalComment on above:Performed By: #### CMP #### [facility] ([facility]) [address] [place] [address] VIRLACTATE W/ REFLEXon 36-86-3124VOYBTRP W/REFLEX0.9 mmol/L Normal0.4-2.0ProMetrohealth Parma Medical CenterComment on above:Order Comment: Result did not trigger repeat Lactate, re-order if needed.Performed By: #### LACTS #### [facility] ([facility]) [address] [place] [address] VIRMAGNESIUMon 69-01-4205Scpowhoxl [Mass/Vol]2.1 mg/dLNormal 1.8-2.6ProMetrohealth Parma Medical CenterComment on above:Performed By: #### MG #### [facility] ([facility]) [address] [place] [address] VIRPOTASSIUMon 71-46-1701Uueebcgqr [Moles/Vol]4.0 mmol/LNormal 3.5-5.0ProMetrohealth Parma Medical CenterComment on above:Performed By: #### K #### [facility] ([facility]) [address] [place] [address] VIRPROCALCITONINon 58-14-6126KWQINUSHSMJRF<^0.05Normal<0.05 Comment on above:Order Comment: <0.50 ng/mL - Low risk of severe sepsis and/or septic shock. <2.00 ng/mL - Recommend retesting within 6-24 hours. >2.00 ng/mL - High risk of sepsis and/or septic shock.Performed By: #### PCAL #### [facility] ([facility]) [address] [place] [address] VIRPROCALCITONIN<^0.05Normal<0.05[facility] Comment on above:Order Comment: <0.50 ng/mL - Low risk of severe sepsis and/or septic shock. <2.00 ng/mL - Recommend retesting within 6-24 hours. >2.00 ng/mL - High risk of sepsis and/or septic shock.Performed By: #### PCAL #### [facility] ([facility]) [address] [place] [address] VIRURINALYSISon 47-04-0139Ftxpqageb Ql (U)NegativeNormal NegativeProMedica Silver Spring HospitalComment on above:Performed By: #### UA #### [facility] ([facility]) [address] [place] [address] VIRBLOOD/HGBNegativeNormalNegativeProMedica [facility] on above:Performed By: #### UA #### [facility] ([facility]) [address] [place] [address] VIRColor (U)YellowNormalYellow, ColorlessProMedica [facility] HospitalComment on above:Performed By: #### UA #### [facility] ([facility]) [address] [place] [address] VIRGlucose Ql (U)NegativeNormalNegativeProMedica [facility] HospitalComment on above:Performed By: #### UA #### [facility] ([facility]) [address] [place] [address] VIRKetones Ql (U)NegativeNormalNegativeProMedica [facility] HospitalComment on above:Performed By: #### UA #### [facility] ([facility]) [address] [place] [address] VIRLeukocyte esterase Test strip Ql (U)SmallAbnormalNegative [facility] HospitalComment on above:Performed By: #### UA #### [facility] ([facility]) [address] [place] [address] VIRMUCOUSPresentAbnormalNoneProMedica [facility] HospitalComment on above:Performed By: #### UA #### [facility] ([facility]) [address] [place] [address] VIRNitrite Ql (U)NegativeNormalNegativeProMedica [facility] HospitalComment on above:Performed By: #### UA #### [facility] ([facility]) [address] [place] [address] VIRPH,URINE6.0Ekeaua6.0-8.5[facility] HospitalComment on above:Performed By: #### UA #### [facility] ([facility]) [address] [place] [address] VIRProtein Ql (U)NegativeNormalNegativeProMedica [facility] HospitalComment on above:Performed By: #### UA #### [facility] ([facility]) [address] [place] [address] VIRR.B.EPSOH1Aowkjp0-1OlwHkvvzg [place] HospitalComment on above:Performed By: #### UA #### [facility] ([facility]) [address] [place] [address] VIRSpecific gravity (U) [Rel density]1.501Kmiawz7.003-1.035 [facility] HospitalComment on above:Performed By: #### UA #### [facility] ([facility]) [address] [place] [address] VIRSQUAMOUS EPITHELIUM<^6Lesevy2-7GgpAkidpf [facility] Comment on above:Performed By: #### UA #### [facility] ([facility]) [address] [place] [address] VIRTURBIDITYClearNormalClearProMedica [facility] HospitalComment on above:Performed By: #### UA #### [facility] ([facility]) [address] [place] [address] VIRUROBILINOGEN<1.1 eu/dLNormal<1.1 eu/dLProMedica Silver Spring HospitalComment on above:Performed By: #### UA #### [facility] ([facility]) [address] [place] [address] VIRW.B.STSDN89Gxhi1-2GucCfajqn [facility] HospitalComment on above: Performed By: #### UA #### [facility] ([facility]) [address] [place] [address] VIRURINE CULTUREon 29-28-0556Sqrjfedq identified Cx Nom (U) CULTURE RESULTS NO GROWTH AT <1000 CFU/mLNormalProMetrohealth Parma Medical CenterComment on above: Performed By: #### WCSUP #### [facility] ([facility]) [address] [place] [address] VIRVANCOMYCIN, RANDOMon 29-03-8277EADRTXQTDA34.3 ug/mLNormal 5.0-40.0ProMetrohealth Parma Medical CenterComment on above:Order Comment: Along with Rare Normal Skin [place].Performed By: #### MUNIRP #### [facility] ([facility]) [address] [place] [address] VIRBLOOD CULTUREon 35-31-7191Dbgcctwd identified Cx Nom (Bld)No growth at 5 daysNormalUniversOhioHealth Arthur G.H. Bing, MD, Cancer CenterComment on above:Order Comment: Prior to antibiotic administrationPerformed By: #### [id number] #### [facility] ([facility]) [address] [place], [place] [address]TZD WITH AUTO DIFFERENTIALon 70-93-1244Vwppnhgfn (Bld) [#/Vol] 0.05 10*3/uLNormal0.00-0.20UnKettering Health DaytonComment on above: Performed By: #### [id number] ####[facility] ([employer])[address] [place], [place] [address]Gedqcnmfc/100 WBC (Bld)1.1 %High0.0-1.0UnKettering Health DaytonComment on above:Performed By: #### [id number] ####[facility] ([employer])[address] [place], [place] [address]Nblkkkukuzn (Bld) [#/Vol]0.17 10*3/uL Normal0.00-0.50UnKettering Health DaytonComment on above:Performed By: #### [id number] ####[facility] ([facility])[address] [place] [address] Eosinophils/100 WBC (Bld)3.9 %Normal0.0-6.0UnKettering Health Dayton Comment on above:Performed By: #### [id number] ####[facility] ([facility])[address] [place], [place] [address]Wiljvvdsjog distribution width (RBC) [Ratio]15.2 % High11.5-15.0UnKettering Health DaytonComment on above:Performed By: #### [id number] ####[facility] ([facility])[address] [place] [address] ERYTHROCYTE MEAN CORPUSCULAR HEMOGLOBIN CONCENTRATION (G/DL) BY QRUUKISHQ52.5 g/uDPajruu64.0-35.0UnKettering Health DaytonComment on above:Performed By: #### [id number] ####[facility] ([facility])[address] [place], [place] [address]Lgvajwdjyz (Bld) [Volume fraction]34.0 %Low39.0-50.0UnKettering Health DaytonComment on above:Performed By: #### [id number] ####[facility] ([facility])[address] [place], [place] [address]Bcrixrdcpi (Bld) [Mass/Vol]11.4 g/dL Low13.0-17.0UnKettering Health DaytonComment on above:Performed By: #### [id number] ####[facility] ([facility])[address] [place] [address] Immature granulocytes (Bld) [#/Vol]0.01 10*3/uLNormal0.00-0.20UnKettering Health DaytonComment on above:Performed By: #### [id number] ####[facility] ([facility])[address] [place], [place] [address]Jydgfjlw granulocytes/100 WBC (Bld)0.2 %Normal0.0-1.0UnKettering Health DaytonComment on above: Performed By: #### [id number] ####[facility] ([facility])[address] [place], [place] [address]Hivgxdmskxg (Bld) [#/Vol]0.69 10*3/uLLow1.20-4.00UnKettering Health DaytonComment on above:Performed By: #### [id number] ####[facility] ([facility])[address] [place], [place] [address]Qltrbnxleyk/100 WBC (Bld) 15.7 %Low20.0-45.0UnKettering Health DaytonComment on above:Performed By: #### [id number] ####[facility] ([facility])[address] [place], [place] [address]CNA (RBC) [Entitic mass]29.2 koYcxpun16.0-33.0UnKettering Health DaytonComment on above:Performed By: #### [id number] ####[facility] ([facility])[address] [place], [place] [address]NJU (RBC) [Entitic vol]87.2 fLNormal 82.0-98.0UnKettering Health DaytonComment on above:Performed By: #### [id number] ####[facility] ([facility])[address] [place] [address] Monocytes (Bld) [#/Vol]0.42 10*3/uLNormal0.10-1.00UnKettering Health DaytonComment on above:Performed By: #### [id number] ####[facility] ([facility])[address] [place] [address]Ogzxlrqsf/100 WBC (Bld)9.5 %Normal 5.0-12.0UnKettering Health DaytonComment on above:Performed By: #### [id number] ####[facility] ([facility])[address] [place] [address] Neutrophils (Bld) [#/Vol]3.06 10*3/uLNormal1.60-7.60UnKettering Health DaytonComment on above:Performed By: #### [id number] ####[facility] ([facility])[address] [place] [address]Loxhpzdbnyw/100 WBC (Bld)69.6 %Normal 40.0-72.0UnKettering Health DaytonComment on above:Performed By: #### [id number] ####[facility] ([facility])[address] [place] [address]NGWJ (PER 100 WBCS) BY AUTOMATED COUNT0.0 %Hirivg7XizzykzjywKettering Health Dayton Comment on above:Performed By: #### [id number] ####[facility] ([facility])[address] [place] [address]DKYCBFLYO (10*3/UL) IN BLOOD AUTOMATED [id number] 10*3/eKSrexee515-722LhyrmsazdhKettering Health DaytonComment on above: Performed By: #### [id number] ####[facility] ([facility])[address] [place] [address]CGG (Bld) [#/Vol]3.90 10*6/uLLow4.20-5.70UnKettering Health DaytonComment on above:Performed By: #### [id number] ####[facility] ([facility])[address] [place], [place] [address]YUT (Bld) [#/Vol]4.40 10*3/uLNormal 4.00-10.60UnKettering Health DaytonComment on above:Performed By: #### [id number] ####[facility] ([facility])[address] [place] [address] COMPREHENSIVE METABOLIC PANELon 88-57-6065Lyosokh [Mass/Vol]3.5 g/dLNormal 3.5-5.7UnKettering Health DaytonComment on above:Performed By: #### [id number] #### [facility] ([facility]) [address] [place] [address]ZWA [Catalytic activity/Vol]54 U/LAwmghe67-954QydgcawcfyKettering Health DaytonComment on above:Performed By: #### [id number] #### [facility] ([facility]) [address] [place], [place] [address]SFE [Catalytic activity/Vol]16 U/LNormal7-52UnKettering Health DaytonComment on above:Performed By: #### [id number] #### [facility] ([facility]) [address] [place], [place] [address]Mokfy gap [Moles/Vol]10 mmol/LNormal7-20UnKettering Health DaytonComment on above:Performed By: #### [id number] #### [facility] ([facility]) [address] [place], [place] [address]VRV [Catalytic activity/Vol]25 U/MJgkmwz08-34PnyegsryzmKettering Health DaytonComment on above:Performed By: #### [id number] #### [facility] ([facility]) [address] [place], [place] [address]Iomcswgdt [Mass/Vol]0.5 mg/dLNormal0.3-1.0UnKettering Health DaytonComment on above:Performed By: #### [id number] #### [facility] ([facility]) [address] [place], [place] [address]Ygflkvz [Mass/Vol]8.2 mg/dLLow8.6-10.3UnKettering Health DaytonComment on above:Performed By: #### [id number] #### [facility] ([facility]) [address] [place], [place] [address]Xyoffxvn [Moles/Vol]107 mmol/RNiumwj67-808KnkbedkaxhKettering Health DaytonComment on above:Performed By: #### [id number] #### [facility] ([facility]) [address] [place], [place] [address]OI4 [Moles/Vol]26 mmol/BFcscwc02-07SzobjsjtjzKettering Health DaytonComment on above:Performed By: #### [id number] #### [facility] ([facility]) [address] [place] [address]Yjfopwdwqx [Mass/Vol]1.85 mg/dLHigh0.70-1.30UnKettering Health DaytonComment on above:Performed By: #### [id number] #### [facility] ([facility]) [address] [place], [place] [address]HOHYKQBHFM FILTRATION RATE ML/MIN/1.73 SQ M.MYQRYVEQL50.3 mL/min/1.73m*2Low>60.0UnKettering Health DaytonComment on above:Result Comment: [facility]???s estimated glomerular filtration rate (eGFR) [...] group of individuals.Performed By: #### [id number] #### [facility] ([facility]) [address] [place], [place] [address]Ctfgvke [Mass/Vol]113 mg/jEToym53-492JppflqzaihKettering Health DaytonComment on above:Performed By: #### [id number] #### [facility] ([facility]) [address] [place], [place] [address]Flvneofwo [Moles/Vol]3.6 mmol/LNormal3.5-5.1UnKettering Health DaytonComment on above:Performed By: #### [id number] #### [facility] ([facility]) [address] [facility] [place], [place] [address]Clnuybo [Mass/Vol]5.7 g/dLLow6.0-8.3UnKettering Health DaytonComment on above:Performed By: #### [id number] #### [facility] ([facility]) [address] [facility] [place], [place] [address]Ngdpdp [Moles/Vol]139 mmol/FSgsoqu240-205JkobxoguutKettering Health DaytonComment on above:Performed By: #### [id number] #### [facility] ([facility]) [address] [place], [place] [address]Tiut nitrogen [Mass/Vol]33 mg/dLHigh7-25UnKettering Health DaytonComment on above:Performed By: #### [id number] #### [facility] ([place]) [address] [place], [place] [address]JCBW NITROGEN/CREATININE (MASS RATIO) IN SER/PLAS17.8Normal [facility] HospitalComment on above:Performed By: #### [id number] #### [facility] ([place]) [address], [place] [address]WOHBCNWpp [phone] Attestation signed by Olive Bautista MD at [...] I have recommended pt be transferred to [facility] or [facility] Dr Mccoy who will [...] mg, oral, Every morning glucosamine/chondroitin weber A/C (EYZUARZTJWJ-ETYIGBTZYMI-CTA C ORAL) 1 capsule, oral, Daily hydrALAZINE [...] Physical Exam Vitals reviewe (more content not included)...[facility] [phone] contacted pt in regard to shoes that were left in dept. Pt aware and will see if daughter can pickers material handlers for him. Belongings placed back in lockers. Mariella Henson RN 05/29/25 1412NormalUniversHarrison Community Hospital CenterEDNURSMode of arrival (squad #, walk in, police, etc): Walk in Chief complaint(s): Pacemaker issue Arrival Note (brief scenario, treatment [employer], etc): Finished antibiotics last week and then noticed drainage from the pacemaker area. The area is red and warm to the touch. Stated that it looks like it is pushing out of his skin. Has had the pacemaker for 2 years and recently had this problem a couple months ago. NormalUnNorwalk Memorial Hospital [phone] of Present Illness Chief Complaint Patient presents [...] denies any fever. History provided by: Patient Yao Coma Scale Score: 15 History Medical History[1] [...] they are not able to do at [facility] today he spoke with Dr. Car over at [facility] who agreed to do it today. On re-evaluation, patient is resting comfortably. Results were discussed. Based on the diagnostic results and physical exam, [facility] [...] signing this emergency patient record, the Emergency Physician/[employer] ASSEMBLER/PA-C attests that all entries made into the electronic medical record by the scribe prior to the Physician/STE[employer] G[employer]URBINE ASSEMBLER/PA-C signature reflect an accurate accounting of the evaluation and care rendered by that Emergency Physician/[employer] G[employer]URBINE ASSEMBLER/PA-C. The Emergency Physician/STEAM AND G[employer] TURBINE ASSEMBLER/PA-C assumes full responsibility for those entries. The Emergency Physician/STEAM AND G[employer] TURBINE ASSEMBLER/PA-C also attests that any patient testing or [...] Alcohol use: Not Currently ??? Drug use: NeverNormalUniversOhioHealth Arthur G.H. Bing, MD, Cancer CenterHIGH SENSITIVITY TROPONIN Ion [id number] TROPONIN I (NG/L)71 ng/LCritically high<20UnKettering Health DaytonComment on above:Performed By: #### [id number] ####[facility] ([place])[address] [place], [place] [address]UEVHHW ACID WITH 4 HOUR REFLEXon [id number] (MMOL/L) IN SER/PLAS0.9 mmol/LNormal0.5-2.2UnKettering Health DaytonComment on above:Performed By: #### [id number] #### [facility] LAB (BEAKER) [address] [place], [place] [address]YOHSTUTJMMG WOUND CULTUREon [id number] WOUND CULTURE CULTURE RESULTS STAPHYLOCOCCUS AUREUS Few [...] <=^0.5 F Cefazolin S F Susceptibility Comment FNormalComment on above:Order Comment: Along with Rare Normal Skin [place].Performed By: #### WCSUP #### [facility] (TT) [address] [place] [address] VIRXR CHEST 2 VWSon [id number] CHEST 2 VWSXR CHEST 2 VWS Chest 2 views History: chest wall tenderness Comparison: 03/26/2023 Findings: Chest 2 views. Stable cardiac mediastinal silhouette. 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 Degenerative change ofthe thoracolumbar spine. Impression: No evident acute cardiopulmonary process. Finalized by Lio Licea MD on 04/19/2025 5:19 PMNormalOffice Visiton [id number]-up [id number] Juan Jose Austin 1940 M Date Provider Department Center 02/23/2025 OLIVE ROBERTSON Family History Problem Relation Age of Onset Heart failure Mother Lung cancer Father Family Status - Relation Status Age at Mother Father Level of Service:32599 CA OFFICE/OUTPATIENT ESTABLISHED LOW [facility]DM [facility] Vis[facility] 13-17-2972Gzhgue-up visit [id number] Juan Jose Austin 1940 M Date Provider Department Center 02/17/2025 JESSICA ALEJANDRO Hos Family History Problem Relation Age of Onset Heart failure Mother Lung cancer Father Family Status - Relation Status Age at Mother Father Level of Service:69100 CA OFFICE/OUTPATIENT ESTABLISHED LOW MDM 20 [facility]Office Visiton 96-89-9243Pelwgg-up visit [id number] Juan Jose Austin 1940 M Date Provider Department Center 02/02/2025 OLIVE ROBERTSON Family History Problem Relation Age of Onset Heart failure Mother Lung cancer Father Family Status - Relation Status Age at Mother Father Level of Service:15794 CA OFFICE/OUTPATIENT ESTABLISHED LOW MDM 20 MINNoCleveland Clinic Avon HospitalTISSUE CULTUREon 94-52-8228Wtycxvwg identified Cx Nom (Unsp spec)STAPHYLOCOCCUS AUREUSAbnormalUniCincinnati VA Medical CenterComfresenius medical care at [facility] on above:Result Comment: Rare Growth Staphylococcus aureus For Susceptibility Results Please Refer to By: #### [id number] ####[facility] ([facility])[address] [place] [address]MFSW STAIN RESULTNormalUniversOhioHealth Arthur G.H. Bing, MD, Cancer CenterComment on above:Result Comment: Rare Polymorphonuclear leukocytes No organisms seenPerformed By: #### [id number] ####[facility] ([facility])[address] [place], [place] [address]LJTJS CULTUREon 74-70-2050Qewuntfiamk [Susc]<=0.5 ResistantUnKettering Health DaytonComment on above:Performed By: #### [id number] #### [facility] ([facility]) [address] [facility] [place] [address]Hjmsruhoj [Susc]<=0.25SusceptibleUnKettering Health DaytonComment on above:Performed By: #### [id number] #### [facility] ([facility]) [address] [facility] [place], [place] [address]Dykghumfdvap [Susc]<=0.5SusceptibleUnKettering Health DaytonComment on above:Performed By: #### [id number] #### [facility] ([facility]) [address] [facility] [place] [address]Clyupnypwhvz+Sulfamethoxazole [Susc]<=0.5/9.5Susceptible [facility] Memorial HospitalComment on above:Performed By: #### [id number] #### [facility] ([facility]) [address] [place], [place] [address]Buhkukwidp [Susc]2 ug/mlSusceptibleUnKettering Health DaytonComment on above:Performed By: #### [id number] #### [facility] (BEAKER) [address] [place] [address]KExt 17-81-1908TRRP Electrophysiology Consult Note Reason for visit: S/P [...] moderate, relieved by rest. He was evaluated [facility] ED and his CBC, BMP, BNP, [...] artifact is not c (more content not included)...NormalGrand Lake Joint Township District Memorial HospitalNURSNOTEon 01-21-2025 NURSNOTERN educated pt on d/c instructions. [...] wheeled off of unit with all of belongings.NormalGrand Lake Joint Township District Memorial HospitalNURSNOTECHG wipes and betadine nasal swabs completed.Normal [facility] Memorial HospitalBasic Metabolic Panelon 10-85-6605Ovnes gap [Moles/Vol]9 mmol/L9 - 16 mmol/LBon Secours Carsabi HealthCalcium [Mass/Vol]8.9 mg/dL8.6 - 10.4 mg/dLBon Secours Carsabi HealthChloride [Moles/Vol]106 mmol/L98 - 107 mmol/LBon Secours Carsabi HealthCO2 [Moles/Vol]26 mmol/L20 - 31 mmol/LBon SecServer DensityCreatinine [Mass/Vol]2.0 mg/dLHigh0.70 - 1.20 mg/dLBon Secours Carsabi HealthEst, Glomelvin Filt Luev75Rht- PINFBon SecServer Density Comment on above: These results are not [...] secretion. Glucose [Mass/Vol]88 mg/dL74 - 99 mg/dLBon [facility] HealthInterpretation and review of laboratory resultsAbnormalInova Health SystemPotassium [Moles/Vol]4.5 mmol/L3.7 - 5.3 mmol/LBon [facility] HealthSodium [Moles/Vol] 141 mmol/L136 - 145 mmol/LBon [facility] HealthUrea nitrogen [Mass/Vol]31 mg/dLHigh8 - 23 mg/dLBon [facility] HealthUrea nitrogen/Creatinine [Mass ratio]16 mg/mg9 - 20Bon [facility] CenterBasic Metabolic Profon 45-37-5378Bqyck gap [Moles/Vol]9 mmol/LNormal9-16[facility] Medical CenterComment on above:Performed By: #### TIP, BMP #### [address] [place] [address] [employer]uity Global Director: Augusto Sidhu MDBUN/CRE Zcdor05Jzvpyl9-86Kiiqo [facility] Comment on above:Performed By: #### TIP, BMP #### [address] [place] [address] Business Continuity Global Director: SHEREE Olivasalcium [Mass/Vol]8.9 mg/dLNormal8.6-10.4[facility] Medical CenterComment on above:Performed By: #### TIP, BMP #### [address] [place] [address] [employer] Continuity Global Director: Augusto Sidhu MDChloride [Moles/Vol]106 mmol/YRwedbb26-560DxkpzUniversity Hospitals Parma Medical CenterComment on above:Performed By: #### CDP, BMP #### [address] [place] [address] [employer] Continuity Global Director: SHEREE OlivasO2 [Moles/Vol]26 mmol/XKuphli88-20HhljpUniversity Hospitals Parma Medical CenterComment on above:Performed By: #### TIP, BMP #### [address] [place] [address] [employer] Continuity Global Director: SHEREE Olivasreatinine [Mass/Vol]2.0 mg/dLHigh0.70-1.20[facility] Medical CenterComment on above:Performed By: #### TIP, BMP #### [address] [place] [address] [employer] Continuity Global Director: Augusto Sidhu MDGFR/1.73 sq M.predicted among non-blacks MDRD (S/P/Bld) [Vol rate/Area]33 mL/min/{1.73_m2}Low>60[facility] Medical CenterComment on above:Result Comment: These results [...] tubular secretion.Performed By: #### TIP, BMP #### [address] [place] [address] [employer] Continuity Global Director: Augusto Sidhu MDGlucose [Mass/Vol]88 mg/iJNgxczg68-27QgvyjCleveland Clinic Marymount HospitalComment on above:Performed By: #### TIP, BMP #### [address] [place] [address] [employer] Continuity Global Director: JEREMY Olivasotassium [Moles/Vol]4.5 mmol/LNormal3.7-5.3MUniversity Hospitals [facility] Medical Center HospitalComment on above:Performed By: #### CDP, BMP #### [facility] [address] [place] [address] Business Continuity Global Director: ROCIO Olivasodium [Moles/Vol]141 mmol/KUgbwvf569-582MqvroUniversity Hospitals Parma Medical CenterComment on above:Performed By: #### CDP, BMP #### [facility] [address] [place] [address] [employer] Continuity Global Director: Augusto Sidhu MDUrea nitrogen [Mass/Vol]31 mg/dLHigh8-23[facility] Medical CenterComment on above:Performed By: #### TIP, BMP #### [facility] [address] [place] [address] [employer]uity Global Director: Augusto Sidhu MDCBC with Auto Differentialon 37-91-6779Msuuqrbfi (Bld) [#/Vol]0.09 10*3/uLBon Secours Mercy HealthBasophils/100 WBC [...] (RBC) [Entitic mass]27.7 pg25.2 - 33.5 pgBon [facility] Medical CenterHC (RBC) [Mass/Vol]32 g/dL28.4 - 34.8 g/dLBon [facility] MCV (RBC) [Entitic vol]86.6 fL82.6 - 102.9 fLInova Health System Monocytes/100 WBC (Bld)6 %3 - 12 %Inova Health SystemMonocytes/100 WBC (Bld)0.47 %Inova Health SystemNeutrophils/100 WBC (Bld)82 %High36 - 65 %[facility] Health SystemNucleated RBC/100 WBC (Bld) [Ratio]0 %0.0 per 100 WBCInova Health SystemPlatelet mean volume (Bld) [Entitic vol]9.3 fL8.1 - 13.5 fL [facility]ova Health SystemPlatelets (Bld) [#/Vol]251 10*3/uLInova Health SystemRBC (Bld) [#/Vol]4.19 10*6/uLLow4.21 - 5.77 m/[facility] Segmented neutrophils/100 WBC (Bld)6.64 %Inova Health SystemWBC other (Bld) [#/Vol]8.1Bon [facility] CenterCBC with Diffon 87-19-8566Cxi. Basophil0.09 k/uLNormal0.00-0.20[facility] Medical CenterComment on above:Performed By: #### TIP, BMP #### [address] [place] [address] Business Continuity Global Director: Trevor Olivas.Imm.Granulocyte0.03 k/uLNormal0.00-0.30[facility] Medical CenterComment on above:Performed By: #### TIP, BMP #### [address] [place] [address] Business Continuity Global Director: Trevor Olivas.Neutrophil (Seg)6.64 k/uLNormal1.50-8.10[facility] HospitalComment on above:Performed By: #### CDP, BMP #### [address] [place] [address] Business Continuity Global Director: Augusto Sidhu MDBasophils/100 WBC (Bld)1 %Normal0-2[facility] HospitalComment on above:Performed By: #### CDP, BMP #### [address] [place] [address] [employer] Continuity Global Director: Augusto Sidhu MDEosinophils (Bld) [#/Vol]0.14 10*3/uLNormal 0.00-0.44[facility] HospitalComment on above:Performed By: #### CDP, BMP #### [address] [place] [address] [employer] Continuity Global Director: MOLLY Olivasosinophils/100 WBC (Bld)2 %Normal1-4[facility] HospitalComment on above:Performed By: #### CDP, BMP #### [address] [place] [address] [employer] Continuity Global Director: Augusto Sidhu MDErythrocyte distribution width (RBC) [Ratio]14.8 % High11.8-14.4[facility] HospitalComment on above:Performed By: #### CDP, BMP #### [address] [place] [address] [employer] Continuity Global Director: Augusto Sidhu MDHematocrit (Bld) [Volume fraction]36.3 %Low 40.7-50.3Mwexner medical centery Artesia HospitalComment on above:Performed By: #### CDP, BMP #### [address] [place] [id number] [employer] Continuity Global Director: Augusto Sidhu MDHemoglobin (Bld) [Mass/Vol]11.6 g/dLLow13.0-17.0 [facility] HospitalComment on above:Performed By: #### CDP, BMP #### [address] [place] [address] [employer] Continuity Global Director: Mariel Olivasture granulocytes/100 WBC (Bld)0 %Veddpt7Szupw [facility] HospitalComment on above:Performed By: #### CDP, BMP #### [address] [place], [place] [address] [employer] Continuity Global Director: Gay Olivasmphocytes (Bld) [#/Vol]0.75 10*3/uLLow1.10-3.70 [facility] HospitalComment on above:Performed By: #### CDP, BMP #### [address] [place], [facility]83 Business Continuity Global Director: Gay Olivasmphocytes/100 WBC (Bld)9 %Ceh73-47Ayviw [facility] HospitalComment on above:Performed By: #### CDP, BMP #### [address] [place] [address] [employer]uity Global Director: DANDRE Olivas (RBC) [Entitic mass]27.7 grRkmeve74.2-33.5 [facility] HospitalComment on above:Performed By: #### CDP, BMP #### [address] [place], [facility]83 [employer] Continuity Global Director: DANDRE OlivasC (RBC) [Mass/Vol]32.0 g/cGPxtcxg91.4-34.8[facility] HospitalComment on above:Performed By: #### CDP, BMP #### [address] [place], [place] [address] [employer] Global Director: LORNA OlivasCV (RBC) [Entitic vol]86.6 aKCqzult84.6-102.9 [facility] HospitalComment on above:Performed By: #### CDP, BMP #### [address] [place] [address] [employer] Continuity Global Director: LORNA Olivasonocytes (Bld) [#/Vol]0.47 10*3/uLNormal0.10-1.20 [facility] Medical CenterComment on above:Performed By: #### CDP, BMP #### [address] [place], [place] [address] [employer] Continuity Global Director: LORNA Olivasonocytes/100 WBC (Bld)6 %Normal3-12[facility] Medical CenterComment on above:Performed By: #### CDP, BMP #### [address] [place] [address] [employer] Continuity Global Director: Navin Olivasutrophil (Seg)82 %Zisq30-57BxcepUniversity Hospitals Parma Medical Center Comment on above:Performed By: #### CDP, BMP #### [address] [place] [address] [employer] Continuity Global Director: Augusto Sidhu MDNRBC Automated0.0 per 100 WBCNormal0.0[facility] Medical CenterComment on above:Performed By: #### CDP, BMP #### [address] [place] [address] Business Continuity Global Director: Micah Olivas mean volume (Bld) [Entitic vol]9.3 fL Normal8.1-13.5[facility] Medical CenterComment on above:Performed By: #### CDP, BMP #### [address] [place], [place] [address] Business Continuity Global Director: JEREMY Olivaslatelets (Bld) [#/Vol]251 10*3/tGLsgetp486-255 [facility] CenterComment on above:Performed By: #### CDP, BMP #### [address] [place] [address] Business Continuity Global Director: ABEL Olivas ([facility]) [#/Vol]4.19 10*6/uLLow4.21-5.77[facility] HospitalComment on above:Performed By: #### CDP, BMP #### [facility] [address] [place] [address] Business Continuity Global Director: PANDA Olivas ([facility]) [#/Vol]8.1 10*3/uLNormal3.5-11.3[facility] HospitalComment on above:Performed By: #### CDP, BMP #### [facility] [address] [place], [place] [address] [employer]uity Global Director: Augusto Sidhu MDOffice Visiton 05-28-5522Dabbld-up [id number] Juan Jose Austin 1940 M Date Provider Department Center 01/19/2025 OLIVE ROBERTSON INESSA Clements Family History Problem Relation Age of Onset Heart failure Mother Lung cancer Father Family Status - Relation Status Age at Mother Father Level of Service:53316 CA OFFICE/OUTPATIENT ESTABLISHED LOW MDM 20 [facility] HospitalOrders Onlyon 26-91-2787Rumlpx [id number] Juan Jose Austin 1940 M Date Provider Department Center 01/19/2025 ROMEL LANDEROS INESSA Clements Family History Problem Relation Age of Onset Heart failure Mother Lung cancer Father Family Status - Relation Status Age at Mother Father DeceasedNormalUniversOhioHealth Arthur G.H. Bing, MD, Cancer CenterOffice Visiton 78-74-0608Sqeezd-up [id number] Juan Jose Austin 1940 M Date Provider Department Center 01/08/2025 KEVEN PULIDO INESSA Morrison [facility] Family History Problem Relation Age of Onset Heart failure Mother Lung cancer Father Family Status - Relation Status Age at Mother Father Level of Service:40284 CA OFFICE/OUTPATIENT ESTABLISHED MOD MDM 30 [facility] HospitalCult,Woundon 21-84-5853Qabs,WoundSpecimen Description .ABSCESS .CHEST SWAB Direct Exam NO [...] [facility] HospitalComment on above:Performed By: #### [facility] ####[place] [address] [place] [address] lab Director: Lisset Kramer 76-84-6815HOBVHGIzwdw () Office ([place]) JUAN JOSE AUSTIN ([id number]) 1940 M Date Time Provider Department 10/23/24 [...] Signed NAME: Juan Jose Austin CLINIC NO.: [id number] DATE OF SERVICE: October 23, 2024 (Eve) [...] - EGD/Colonoscopy: with Dr. Jacob Bear at [facility] Diverticulitis A. Duodenum, biopsy: - Duodenal mucosa [...] to suggest obstruction. 03/22/2024-04/12/2024 - Admitted at [facility] for non-ST elevated myoc (more content not included)...NormalTrinity Health System East Campus 72-71-6037UQZ [Catalytic activity/Vol]19 U/L10 - 50 U/LBon [facility] [Catalytic activity/Vol]19 U/HRnvwrp59-83OconfUniversity Hospitals Parma Medical CenterComment on above:Performed By: #### ALT, BMP, AST #### [facility] [address] [place] [address] Business Continuity Global Director: Raphael Olivas 67-72-4164CGF [Catalytic activity/Vol]28 U/L 10 - 50 U/LBon Madison HealthAST [Catalytic activity/Vol]28 U/UUxncyf39-74 [facility] Medical CenterComment on above:Performed By: #### ALT, BMP, AST #### [facility] [address] [place] [address] Business Continuity Global Director: Al Olivas Metabolic Panelon 27-27-5980Asldw gap [Moles/Vol]10 mmol/L9 - 16 mmol/LBon [facility] HospitalCalcium [Mass/Vol]9.3 mg/dL8.6 - 10.4 mg/dLBon [facility] HospitalChloride [Moles/Vol]109 mmol/LHigh 98 - 107 mmol/LBon [facility] HospitalCO2 [Moles/Vol]27 mmol/L20 - 31 mmol/LBon [facility] PixalateInova Loudoun HospitalCreatinine [Mass/Vol]1.7 mg/dLHigh0.70 - 1.20 mg/dLBon [facility] DBA GroupEst, Glom Filt Gqfo88Ewn- PINFBon [facility] Comment on above: These results are not [...] that affects renal tubular secretion. Glucose [Mass/Vol]101 mg/xGBsab01 - 99 mg/dLBon Kindred HospitalSun Number Interpretation and review of laboratory resultsAbnormalBon Kindred HospitalSun Number Potassium [Moles/Vol]4.5 mmol/L3.7 - 5.3 mmol/LBon [facility] Medical CenterServer DensitySodium [Moles/Vol]146 mmol/JUlut307 - 145 mmol/LBon [facility] HealthUrea nitrogen [Mass/Vol]35 mg/dLHigh8 - 23 mg/dLBon [facility] HealthUrea nitrogen/Creatinine [Mass ratio]21 mg/mgHigh9 - 20Bon [facility] HealthBasic Metabolic Profon 45-01-5813Ewufe gap [Moles/Vol]10 mmol/LNormal9-16[facility] Medical CenterComment on above:Performed By: #### ALT, BMP, AST #### [address] [place], [place] [address]83 [employer] Continuity Global Director: Augusto Sidhu MDBUN/CRE Rdryd17Rdrr7-42UkkelUniversity Hospitals Parma Medical Center Comment on above:Performed By: #### ALT, BMP, AST #### [address] [place], [place] [address]83 Business Continuity Global Director: SHEREE Olivasalcium [Mass/Vol]9.3 mg/dLNormal8.6-10.4[facility] Medical CenterComment on above:Performed By: #### ALT, BMP, AST #### [address] [place], [place] [address] Business Continuity Global Director: SHEREE Olivashloride [Moles/Vol]109 mmol/XYhyd67-685RuxhjUniversity Hospitals Parma Medical CenterComment on above:Performed By: #### ALT, BMP, AST #### [address] [place], [place] 22[address]783 Business Continuity Global Director: Augusto Sidhu MDCO2 [Moles/Vol]27 mmol/BUsbrad52-44HpqcoUniversity Hospitals Parma Medical CenterComment on above:Performed By: #### ALT, BMP, AST #### [address] [place] [address] Business Continuity Global Director: SHEREE Olivasreatinine [Mass/Vol]1.7 mg/dLHigh0.70-1.20[facility] Medical CenterComment on above:Performed By: #### ALT, BMP, AST #### [address] [place] [address] Business Continuity Global Director: Augusto Sidhu MDGFR/1.73 sq M.predicted among non-blacks MDRD (S/P/Bld) [Vol rate/Area]40 mL/min/{1.73_m2}Low>60MerGrant Hospital HospitalComment on above:Result Comment: These results [...] secretion.Performed By: #### ALT, BMP, AST #### [address] [place] [address] Business Continuity Global Director: Augusto Sidhu MDGlucose [Mass/Vol]101 mg/xYEnhc68-25Sksgu [facility] HospitalComment on above:Performed By: #### ALT, BMP, AST #### [address] [place] [address] Business Continuity Global Director: JEREMY Olivasotassium [Moles/Vol]4.5 mmol/LNormal3.7-5.3[facility] HospitalComment on above:Performed By: #### ALT, BMP, AST #### [address] [place] [address] Business Continuity Global Director: ROCIO Olivasodium [Moles/Vol]146 mmol/JCvgy590-207IfhvfUniversity Hospitals Parma Medical CenterComment on above:Performed By: #### ALT, BMP, AST #### [address] [place] [address] Business Continuity Global Director: Augusto Sidhu MDUrea nitrogen [Mass/Vol]35 mg/dLHigh8-23[facility] Medical CenterComment on above:Performed By: #### ALT, BMP, AST #### [place] [address] [place], [place] [address] Business Continuity Global Director: Augusto Sidhu MDLipid Panelon 61-67-9928Yyavzsmehqn [Mass/Vol]134 mg/dL0 - 199 mg/dLBon [facility] HealthComment on above: Cholesterol Guidelines: <200 Desirable 200-240 Borderline >240 Undesirable Cholesterol in HDL [Mass/Vol]51 mg/dL40 - PINF mg/dLBon [facility] Comment on above: HDL Guidelines: <40 Undesirable 40-59 Borderline >59 Desirable Cholesterol in LDL [Mass/Vol]65 mg/dL0 - 100 mg/dLBon [facility] Comment on above: LDL Guidelines: <100 Desirable 100-129 Near to/above Desirable 130-159 Borderline >159 Undesirable Direct (measured) LDL and calculated LDL are not interchangeable tests. Cholesterol in VLDL [Mass/Vol]18 mg/dL1 - 30 mg/dLBon [facility] Cholesterol.total/Cholesterol in HDL [Mass ratio]2.6 {ratio}[facility] GameMakiTriglyceride [Mass/Vol]92 mg/dLNINF - 150 mg/dLBon [facility] GameMaki Comment on above: Triglyceride Guidelines: <150 Desirable 150-199 Borderline 200-499 High >499 Very high Based on AHA Guidelines for fasting triglyceride, July 2012. [facility] [employer] ServicesLipid Profileon 29-05-3707Qtxxjlhacvo [Mass/Vol]134 mg/dLNormal0-199[facility] Medical CenterComment on above:Result Comment: Cholesterol Guidelines: <200 Desirable 200-240 Borderline >240 UndesirablePerformed By: #### LIPR ####[address] [place] [address] Lab Director: SHEREE Kramerholesterol in HDL [Mass/Vol]51 mg/dLNormal>40[facility] Medical CenterComment on above:Result Comment: HDL Guidelines: <40 Undesirable 40-59 Borderline >59 DesirablePerformed By: #### LIPR ####[address] [place], [place] [address] Lab Director: SHEREE Kramerholesterol in LDL [Mass/Vol]65 mg/dLNormal0-100[facility] Medical CenterComment on above:Result Comment: LDL Guidelines: <100 Desirable 100-129 Near to/above Desirable 130-159 Borderline >159 Undesirable Direct (measured) LDL and calculated LDL are not interchangeable tests.Performed By: #### LIPR ####[address] [place] [phone] Director: SHEREE Kramerholesterol in VLDL [Mass/Vol]18 mg/dLNormal 1-30MerYale New Haven Children's HospitalComment on above:Performed By: #### LIPR ####[address] [place] [address] Lab Director: Bebo Kramer.total/Cholesterol in HDL [Mass ratio]2.6 {ratio}Normal [facility] Medical CenterComment on above:Performed By: #### LIPR ####[address] [place] [address] Lab Director: Hung Nguyen MDTriglyceride [Mass/Vol]92 mg/dLNormal<150[facility] Medical CenterComment on above:Result Comment: Triglyceride Guidelines: <150 Desirable 150-199 Borderline 200-499 High >499 Very high Based on AHA Guidelines for fasting triglyceride, July 2012.Performed By: #### LIPR ####[address] [place] [address] Lab Director: Hnug Nguyen MDNo Panel Informationon 50-00-9018Dqe Madison HealthT4, Freeon 43-04-0700Rtut T4 [Mass/Vol]1.1 ng/dL0.92 - 1.68 ng/dLBon [facility] Medical CenterTSHon 76-08-5358Emrssfeltxirfy and review of laboratory resultsAbnormalCentra Bedford [facility] Hospital Qn4.65 m[IU]/L HighBon [facility] Medical CenterThyroid Stim. Horm.on 33-51-9960Xmrmyfa Stim. Horm.4.65 uIU/mLHigh0.27-4.20[facility] Comment on above:Performed By: #### TSH ####[address] , [place] [address] Lab Director: Augusto Sidhu MD#### FT4 ####[place] [place], [place] [address] Lab Director: Hung Nguyen MDThyroxine, Freeon 97-51-8900Jrbaiwzmd, Free1.1 ng/dL Normal0.92-1.68[facility]ma Medical CenterComment on above:Performed By: #### TSH ####[address] , [place] [phone] Director: Augusto Sidhu MD#### FT4 ####[address] [place], [place] [address] Lab Director: Hung Nguyen [facility] W Auto Differential panel (Bld)on [id number] (Bld) [#/Vol]0.05 10*3/uLNINF Rea ClinicBasophils/100 WBC (Bld)0.8 %[facility] MemorialDifferential cell count method Nom (Bld)AutoCleveland ClinicEosinophils (Bld) [#/Vol]0.14 10*3/uL NINFCleveland ClinicEosinophils/100 WBC (Bld)2.4 %[facility] MemorialErythrocyte distribution width (RBC) [Ratio]14.1 %11.5 - 15.0 %[facility] MemorialHematocrit (Bld) [Volume fraction]39.6 %39.0 - 51.0 %[facility] MemorialHemoglobin (Bld) [Mass/Vol]13.7 g/dL13.0 - 17.0 g/dLKettering Health Greene MemorialImmature granulocytes (Bld) [#/Vol]0.03 10*3/uLNINFKettering Health Greene MemorialImmature granulocytes/100 WBC (Bld)0.5 % [facility] MemorialInterpretation and review of laboratory resultsAbnormalCleveland ClinicLymphocytes (Bld) [#/Vol]0.74 10*3/uLLowKettering Health Greene MemorialLymphocytes/100 WBC (Bld)12.4 %[facility]ison HealthH (RBC) [Entitic mass]29.2 pg26.0 - 34.0 pg Madison HealthHC (RBC) [Mass/Vol]34.6 g/dL30.5 - 36.0 g/dLKettering Health Greene Memorial MCV (RBC) [Entitic vol]84.4 fL80.0 - 100.0 fLCCommunity Memorial HospitalMonocytes (Bld) [#/Vol]0.39 10*3/uLNINFKettering Health Greene MemorialMonocytes/100 WBC (Bld)6.6 %[facility] MemorialNeutrophils (Bld) [#/Vol]4.60 10*3/uLKettering Health Greene MemorialNeutrophils/100 WBC (Bld)77.3 %[facility] MemorialNucleated RBC (Bld) [#/Vol]NINFCCommunity Memorial Hospital Nucleated RBC/100 WBC (Bld) [Ratio]0.0 %/100 WBCKettering Health Greene MemorialPlatelet mean volume (Bld) [Entitic vol]9.1 fL9.0 - 12.7 fLCCommunity Memorial HospitalPlatelets (Bld) [#/Vol]168 10*3/uLKettering Health Greene MemorialRBC (Bld) [#/Vol]4.69 10*6/uL4.20 - 6.00 m/uL [facility] MemorialWBC (Bld) [#/Vol]5.95 10*3/uLBerger Hospital Basophils (Bld) [#/Vol]0.05 10*3/uLNormal<0.11CCleveland Clinic Avon HospitalComment on above:Order Comment: Specimen Type: BLOOD SPECIMENOrdering Facility: [facility] Address:[address] [place] [address] Performed By: #### 61039-8 ####[facility] LABCLIA [id number] [place], [place] [address]Zeppdswuz/100 WBC (Bld)0.8 % NormalOhioHealth Grady Memorial Hospital on above:Order Comment: Specimen Type: BLOOD SPECIMENOrdering Facility: [facility] Address:[address] [place], [place] [address]Performed By: #### 98631-9 ####[facility] LABCLIA [id number] [place] [address] Differential cell count method Nom (Bld)AutoNormalClevelCone Health Moses Cone Hospital Comment on above:Order Comment: Specimen Type: BLOOD SPECIMENOrdering Facility: [facility] Address:[address] [place] [address] Performed By: #### 87893-5 ####[facility] LABCLIA [id number] [place], [place] [address]Hzubvffuacq (Bld) [#/Vol]0.14 10*3/uLNormal<0.46[facility] on above:Order Comment: Specimen Type: BLOOD SPECIMENOrdering Facility: [facility] Address:[address] [place], [place] [address]Performed By: #### 76069-1 ####[facility] LABIA [id number] [place], [place] [address]Owtljsvmxtp/100 WBC (Bld)2.4 %NormalPomerene Hospitalment on above:Order Comment: Specimen Type: BLOOD SPECIMENOrdering Facility: [facility] Address:[address] [place], [place] [address]Performed By: #### 05805-8 ####[facility] LABIA [id number] [place], [place] [address]Oiorcrafzhn distribution width (RBC) [Ratio]14.1 %Jfgjkl67.5-15.0[facility] on above: Order Comment: Specimen Type: BLOOD SPECIMENOrdering Facility: [facility] Address:[address] [place], [place] [address]Performed By: #### 58927- 8 ####[facility] LABIA [id number] [place], [place] [address]Iiqjqdcazu (Bld) [Volume fraction]39.6 %Movsqb62.0-51.0 [facility] on above:Order Comment: Specimen Type: BLOOD SPECIMENOrdering Facility: [facility] Address:[address] [place], [place] [address]Performed By: #### 15608-0 ####[facility] LABIA [id number] [place], [place] [address]Rwmobgymik (Bld) [Mass/Vol]13.7 g/xHQyuwvp68.0-17.0[facility] on above: Order Comment: Specimen Type: BLOOD SPECIMENOrdering Facility: [facility] Address:[address] [place], [place] [address]Performed By: #### 30867- 8 ####[facility] LABIA [id number] [place], [place] [address]Pstgfmwr granulocytes (Bld) [#/Vol]0.03 10*3/uLNormal <0.10[facility] on above:Order Comment: Specimen Type: BLOOD SPECIMENOrdering Facility: [facility] Address:[address] [place], [place] [address]Performed By: #### 56531-8 ####[facility] LABIA [id number] [place], [place] [address]Samqsshg granulocytes/100 WBC (Bld)0.5 %NormalOhioHealth Grady Memorial Hospital on above: Order Comment: Specimen Type: BLOOD SPECIMENOrdering Facility: [facility] Address:[address] [place], [place] [address]Performed By: #### 64717- 8 ####[facility] LABIA [id number] [place], [place] [address]Iuandcaphup (Bld) [#/Vol]0.74 10*3/uLLow1.00-4.00 [facility] on above:Order Comment: Specimen Type: BLOOD SPECIMENOrdering Facility: [facility] Address:[address], [place] [address]Performed By: #### 73107-3 ####[facility] LABCLIA [id number] [place], [place] [address]Zyhktxlmoyo/100 WBC (Bld)12.4 %NormalOhioHealth Grady Memorial Hospital on above:Order Comment: Specimen Type: BLOOD SPECIMENOrdering Facility: [facility] Address:[address] [place], [place] [address]Performed By: #### 72311-9 ####[facility] LABCLIA [id number] [place], [place] [address]JEW (RBC) [Entitic mass]29.2 iyMnhbrl59.0-34.0[facility] on above:Order Comment: Specimen Type: BLOOD SPECIMENOrdering Facility: [facility] Address:[address] [place], [place] [address]Performed By: #### 86500-4 ####[facility] LABCLIA [id number] [place], [place] [address]MYJV (RBC) [Mass/Vol]34.6 g/bZQnlmiq84.5-36.0[facility] on above: Order Comment: Specimen Type: BLOOD SPECIMENOrdering Facility: [facility] Address:[address] [place], [place] [address]Performed By: #### 68013- 8 ####[facility] LABCLIA [id number] [place], [place] [address]QXZ (RBC) [Entitic vol]84.4 aZUwgmpq70.0-100.0[facility] on above:Order Comment: Specimen Type: BLOOD SPECIMENOrdering Facility: [facility] Address:[address] [place], [place] [address]Performed By: #### 41902-3 ####[facility] LABIA [id number] [place], [place] [address]Msqikcbpd (Bld) [#/Vol]0.39 10*3/uLNormal<0.87[facility] on above:Order Comment: Specimen Type: BLOOD SPECIMENOrdering Facility: [facility] Address:[address] [place], [place] [address]Performed By: #### 78165- 8 ####[facility] LABCLIA [id number] [place], [place] [address]Fniclfgyc/100 WBC (Bld)6.6 %NormalOhioHealth Grady Memorial Hospital on above:Order Comment: Specimen Type: BLOOD SPECIMENOrdering Facility: [facility] Address:[address] [place], [place] [address]Performed By: #### 84771-1 ####[facility] LABCLIA [id number] [place], [place] [address]Jzmnakwzrcn (Bld) [#/Vol]4.60 10*3/uLNormal1.45-7.50[facility] on above:Order Comment: Specimen Type: BLOOD SPECIMENOrdering Facility: [facility] Address:[address] [place], [place] [address]Performed By: #### 20407-2 ####[facility] LABCLIA [id number] [place], [place] [address]Agynyivyaea/100 WBC (Bld)77.3 %NormalOhioHealth Grady Memorial Hospital on above:Order Comment: Specimen Type: BLOOD SPECIMENOrdering Facility: [facility] Address:[address] [place], [place] [address]Performed By: #### 50573-7 ####[facility] LABIA [id number] [place], [place] [address]Vfioezfts RBC (Bld) [#/Vol] 10*3/uLNormal<0.01[facility] on above:Order Comment: Specimen Type: BLOOD SPECIMENOrdering Facility: [facility] Address:[address] [place], [place] [address]Performed By: #### 07342-8 ####[facility] LABCLIA [id number] [place], [place] [address]Zhafaotrh RBC/100 WBC (Bld) [Ratio]0.0 /100 WBCNormal [facility] on above:Order Comment: Specimen Type: BLOOD SPECIMENOrdering Facility: [facility] Address:[address] [place], [place] [address]Performed By: #### 38669-8 ####[facility] LABCLIA [id number] [place], [place] [address]Kqpckxat mean volume (Bld) [Entitic vol]9.1 fLNormal9.0-12.7CWilson Health on above:Order Comment: Specimen Type: BLOOD SPECIMENOrdering Facility: [facility] Address:[address] [place] [address] Performed By: #### 27853-7 ####[facility] LABCLIA [id number] [place], [place] [address]Kyjsspuke (Bld) [#/Vol]168 10*3/mLTjhmvs718-122KdknfdirnOhioHealth Grady Memorial Hospital on above:Order Comment: Specimen Type: BLOOD SPECIMENOrdering Facility: [facility] Address:[address] [place], [place] [address]Performed By: #### 70680-3 ####[facility] LABCLIA [id number] [place], [place] [address]KBS (Bld) [#/Vol]4.69 10*6/uLNormal4.20-6.00[facility] on above:Order Comment: Specimen Type: BLOOD SPECIMENOrdering Facility: [facility] Address:[address] [place], [place] [address]Performed By: #### 60638-8 ####[facility] LABCLIA [id number] [place], [place] [address]IJN (Bld) [#/Vol]5.95 10*3/uLNormal3.70-11.00[facility] John Medical CenterComment on above: Order Comment: Specimen Type: BLOOD SPECIMENOrdering Facility: [facility] Address:[address] [place], [place] [address]Vbhqzkegw By: #### 80739- 8 ####[facility] LABCLIA [id number] [place], [place] [address]UD ABD/PEL W IVCONon 07-45-6791TH ABD/PEL W IVCON* * *Final Report* * * DATE OF EXAM: Oct 16 2024 9:08AM [facility] 0530 - CT ABD/PEL W [...] any questions regarding this interpretation, please call [phone]. If you are unable to reach us at the number above, please feel free to contact [facility] eRadiology at [phone]. [id number] Bethes[facility] Abdomen and Pelvis W contrast [place] 47-47-3167RHASIWGIUB: 1. Stable examination when compared to the [...] any questions regarding this interpretation, please call [phone]. If you are unable to reach us at the number above, please feel free to contact [facility] eRadiology at [phone].DIVISION OF RADIOLOGY* * *Final Report* * * DATE OF EXAM: Oct 16 2024 9:08AM [facility] 0530 - CT ABD/PEL W [...] images: No additional findings. DIVISION OF RADIOLOGYProvider, [facility] - 10/16/2024 * * *Final Report* * * DATE OF EXAM: Oct 16 2024 9:08AM [facility] 0530 - CT ABD/PEL W [...] any questions regarding this interpretation, please call [phone]. If you are unable to reach us at the number above, please feel free to contact [facility] eRadiology at [phone]. [facility] CHEST W IVCONon 25-49-9492VV CHEST W IVCON* * *Final Report* * * DATE OF EXAM: Oct 16 2024 9:08AM [facility] 0539 - CT CHEST W [...] any questions regarding this interpretation, please call [phone]. If you are unable to reach us at the number above, please feel free to contact [facility] eRadiology at [phone]. [id number] Hospitals St. John Medical CenterCT Chest W contrast [place] 36-11-0390XSXXGSQYRP: 1. Stable subcentimeter pulmonary nodules. Stable top [...] any questions regarding this interpretation, please call [phone]. If you are unable to reach us at the number above, please feel free to contact [facility] at [phone].DIVISION OF RADIOLOGY* * *Final Report* * * DATE OF EXAM: Oct 16 2024 9:08AM [facility] 0539 - CT CHEST W [...] images: No additional findings. DIVISION OF RADIOLOGYProvider, [facility] - 10/16/2024 * * *Final Report* * * DATE OF EXAM: Oct 16 2024 9:08AM [facility] 0539 - CT CHEST W [...] any questions regarding this interpretation, please call [phone]. If you are unable to reach us at the number above, please feel free to contact [facility] eRadiology at [phone]. [facility] MemorialComprehensive metabolic 2000 panelOrdered By: Elizabeth Cody on 88-23-1440Tohyznr [Mass/Vol]4.3 g/dL3.9 - 4.9 g/dLRea ClinicALP [Catalytic activity/Vol]84 U/L38 - 113 U/LCleveland ClinicALT [Catalytic activity/Vol]19 U/L10 - 54 U/LCleveland ClinicAnion gap [Moles/Vol]10 mmol/L8 - 15 mmol/L [facility] MemorialAST [Catalytic activity/Vol]25 U/L14 - 40 U/LCleveland [facility] Bilirubin [Mass/Vol]0.9 mg/dL0.2 - 1.3 mg/dLKettering Health Greene MemorialCalcium [Mass/Vol] 9.2 mg/dL8.5 - 10.2 mg/dLKettering Health Greene MemorialChloride [Moles/Vol]105 mmol/L98 - 107 mmol/LCleveland ClinicCO2 [Moles/Vol]26 mmol/L22 - 30 mmol/LCleveland Clinic Creatinine [Mass/Vol]1.71 mg/dLHigh0.73 - 1.22 mg/dLKettering Health Greene MemorialGFR/1.73 sq M.predicted among non-blacks MDRD (S/P/Bld) [Vol [...] eGFRmay not accurately reflect actual GFR.Glucose [Mass/Vol]112 mg/zREcco30 - 99 mg/dLKettering Health Greene Memorial Comment on above:The [place] Diabetes Association (ADA) provides guidance for cutoff [...] Standards of Medical Care in Diabetes 2016, [place] [employer]. Diabetes Care. 2016.39(Suppl 1). Interpretation and review of laboratory resultsAbnormalCleveland ClinicPotassium [Moles/Vol]4.2 mmol/L3.7 - 5.1 mmol/LCkettering health main campus ClinicProtein [Mass/Vol]6.4 g/dL 6.3 - 8.0 g/dLKettering Health Troyodium [Moles/Vol]141 mmol/L136 - 144 mmol/L [facility] MemorialUrea nitrogen [Mass/Vol]32 mg/dLHigh9 - 24 mg/dLMercy Health St. Elizabeth Boardman HospitalComprehensive metabolic 2000 panelon 72-64-5561Mytpihp [Mass/Vol]4.3 g/dLNormal3.9-4.9CCleveland Clinic Avon HospitalComment on above:Order Comment: Specimen Type: BLOOD SPECIMENOrdering Facility: [facility] Address:[address] [place], [place] [address]Performed By: #### 62754- 8 ####[facility] LABCLIA [id number] [place], [place] [address]WPG [Catalytic activity/Vol]84 U/HDgqgov42-146RilzzcsqjOhioHealth Grady Memorial Hospital on above:Order Comment: Specimen Type: BLOOD SPECIMENOrdering Facility: [facility] Address:[address] [place], [place] [address]Performed By: #### 76185-8 ####[facility] LABCLIA [id number] [place], [place] [address]HIM [Catalytic activity/Vol]19 U/KAzbowq39-06DqfpenrsaOhioHealth Grady Memorial Hospital on above:Order Comment: Specimen Type: BLOOD SPECIMENOrdering Facility: [facility] Address:[address] [place], [place] [address]Performed By: #### 06541- 8 ####[facility] LABCLIA [id number] [facility] [place] [place], [place] [address]Lvkbs gap [Moles/Vol]10 mmol/LNormal8-15[facility] on above:Order Comment: Specimen Type: BLOOD SPECIMENOrdering Facility: [facility] Address:[address] [place], [place] [address]Performed By: #### 36982-4 ####[facility] LABCLIA [id number] [place], [place] [address]YYW [Catalytic activity/Vol]25 U/QIjrpmh04-88JpsxqwxbaOhioHealth Grady Memorial Hospital on above:Order Comment: Specimen Type: BLOOD SPECIMENOrdering Facility: [facility] Address:[address] [place], [place] [address]Performed By: #### 15140-2 ####[facility] LABCLIA [id number] [place] [address] Bilirubin [Mass/Vol]0.9 mg/dLNormal0.2-1.3CWilson Health on above:Order Comment: Specimen Type: BLOOD SPECIMENOrdering Facility: [facility] Address:[address] [place], [place] [address]Performed By: #### 82072-5 ####[facility] LABCLIA [id number] [place], [place] [address]Xsikhhb [Mass/Vol]9.2 mg/dLNormal8.5-10.2CWilson Health on above:Order Comment: Specimen Type: BLOOD SPECIMENOrdering Facility: [facility] Address:[address] [place], [place] [address]Performed By: #### 51792-7 ####[facility] LABCLIA [id number] [place], [place] [address]Vztspntz [Moles/Vol]105 mmol/ZLiscfp48-028DcoomyrihOhioHealth Grady Memorial Hospital on above: Order Comment: Specimen Type: BLOOD SPECIMENOrdering Facility: [facility] Address:[address] [place], [place] [address]Performed By: #### 14887- 8 ####[facility] LABCLIA [id number] [place], [place] [address]UQ9 [Moles/Vol]26 mmol/ETbtlid08-43AqxvowwgfOhioHealth Grady Memorial Hospital on above:Order Comment: Specimen Type: BLOOD SPECIMENOrdering Facility: [facility] Address:[address] [place], [place] [address]Performed By: #### 01772-4 ####[facility] LABCLIA [id number] [place], [place] [address]Crmtgspesd [Mass/Vol]1.71 mg/dL High0.73-1.22[facility] on above:Order Comment: Specimen Type: BLOOD SPECIMENOrdering Facility: [facility] Address:[address] [place], [place] [address]Performed By: #### 61064-2 ####[facility] LABCLIA [id number] [place] [address] Creatinine and Glomerular filtration rate.predicted panel (S/P/Bld)39 mL/min/1.73m???Low>=60[facility] on above:Order Comment: Specimen Type: BLOOD SPECIMENOrdering Facility: [facility] Address:[address] [place], [place] [address]Result Comment: Estimated Glomerular Filtration Rate (eGFR) is calculated using the 2020 CKD-EPI creatinine equation. This equation utilizes serum creatinine, sex, and age as parameters. The creatinine assay has traceable calibration to isotope dilution-mass spectrometry. Refer to KDIGO guidelines for clinical interpretation. In patients with unstable renal function, e.g. those with acute kidney injury, the eGFR may not accurately reflect actual GFR.Performed By: #### 55185-4 ####[facility] LABCLIA [id number] [place] [address] Glucose [Mass/Vol]112 mg/jDRoyq72-45JpmbphpyvOhioHealth Grady Memorial Hospital on above: Order Comment: Specimen Type: BLOOD SPECIMENOrdering Facility: [facility] Address:[address] [place], [place] [address]Result Comment: The [place] Diabetes Association (ADA) provides guidance for cutoff [...] Standards of Medical Care in Diabetes 2016, [place] Diabetes Association. Diabetes Care. 2016.39(Suppl 1).Performed By: #### 85062-3 ####[facility] LABCLIA [id number] [place], [place] [address]Ywytcwixh [Moles/Vol]4.2 mmol/LNormal3.7-5.1CWilson Health on above:Order Comment: Specimen Type: BLOOD SPECIMENOrdering Facility: [facility] Address:[address] [place], [place] [address]Performed By: #### 83840-4 ####[facility] LABCLIA [id number] [place], [place] [address]Kpslhrw [Mass/Vol]6.4 g/dLNormal6.3-8.0[facility] on above:Order Comment: Specimen Type: BLOOD SPECIMENOrdering Facility: [facility] Address:[address] [place], [place] [address]Performed By: #### 40932- 8 ####[facility] LABCLIA [id number] [place], [place] [address]Wotnno [Moles/Vol]141 mmol/BYawwac110-065BjfkfgoxcOhioHealth Grady Memorial Hospital on above:Order Comment: Specimen Type: BLOOD SPECIMENOrdering Facility: [facility] Address:[address] [place] [address]Qyujltfft By: #### 16731-7 ####[facility] LABCLIA [id number] [place], [place] [address]Wpef nitrogen [Mass/Vol]32 mg/dLHigh9-24[facility] on above:Order Comment: Specimen Type: BLOOD SPECIMENOrdering Facility: [facility] Address:[address] [place], [place] [address]Performed By: #### 03714-4 ####[facility] LABCLIA [id number] [place] [address] No Panel Informationon 44-27-9155Dyjsqzhbs ClinicRadiology Study observation (narrative)[facility] MemorialOffice Visiton 78-65-4999Zdomxm-up [id number] Juan Jose Austin 1940 M Date Provider Department Center 09/16/2024 JESSICA ALEJANDRO Family History Problem Relation Age of Onset Heart failure Mother Lung cancer Father Family Status - Relation Status Age at Mother Father Level of Service:06351 [place] OFFICE/OUTPATIENT ESTABLISHED LOW MDM 20 MIN Reason for Visit and Comments: Chest Pain [614172]NormalUnKettering Health DaytonXR CHEST (2 VW)on 01-68-6071TG CHEST (2 VW)EXAMINATION: TWO XRAY VIEWS OF THE CHEST 09/10/2024 9:15 pm COMPARISON: 03/22/2024 HISTORY: Pacemaker problem. FINDINGS: Stable left chest pacemaker. Stable cardiomediastinal contours. Left basilar atelectasis/scarring. Right lung is clear. No pleural effusion or pneumothorax. IMPRESSION: Left basilar atelectasis/scarring. Stable pacemaker. Interpreted by: Krunal Damian MD Signed by: Krunal Damian MD 09/10/24 Final resultNormalMerYale New Haven Children's HospitalXR Chest 2 Viewson 60-81-9940Zrmh basilar atelectasis/scarring. Stable pacemaker. PN RIS CONSOLIDATEDEXAMINATION: TWO XRAY VIEWS OF THE CHEST 09/10/2024 9:15 pm COMPARISON: 03/22/2024 HISTORY: Pacemaker problem. FINDINGS: Stable left chest pacemaker. Stable cardiomediastinal contours. Left basilar atelectasis/scarring. Right lung is clear. No pleural effusion or pneumothorax. [facility] Krunal Eugene MD - 09/10/2024 EXAMINATION: TWO XRAY VIEWS OF THE CHEST 09/10/2024 9:15 pm COMPARISON: 03/22/2024 HISTORY: Pacemaker problem. FINDINGS: Stable left chest pacemaker. Stable cardiomediastinal contours. Left basilar atelectasis/scarring. Right lung is clear. No pleural effusion or pneumothorax. IMPRESSION: Left basilar atelectasis/scarring. Stable pacemaker. [facility] PixalateInova Loudoun HospitalRadiology Study observation (narrative)[facility] Carsabi [facility]iffin HospitalXR Chest 2 ViewsOrdered By: Krunal Damian on 76-73-5593Eku [facility] Work Phone: cbc W Auto Differential panel (Bld)on 08-21-2024 Basophils (Bld) [#/Vol]0.04 10*3/uLNormal<0.11CCleveland Clinic Avon HospitalComment on above:Order Comment: Specimen Type: BLOOD SPECIMEN [facility] Address: [address] [place], [place] [address]Performed By: #### 98821-2 #### [facility] CLIA [id number] [address] [place] [address]Tqtjdftss/100 WBC (Bld)0.7 %NormalUniversity Hospitals St. John Medical Center Comment on above:Order Comment: Specimen Type: BLOOD SPECIMEN [facility] Address: [address] [place], [place] [address]Performed By: #### 40828-8 #### [facility] CLIA [id number] [address] [place] [address]Fjkfzitdvbrn cell count method Nom (Bld)AutoNormalClevelCommunity Regional Medical Center on above:Order Comment: Specimen Type: BLOOD SPECIMEN [facility] Address: [address] [place], [place] [address]Performed By: #### 93669-1 #### [facility]ITALKOB[facility] CLIA [id number] [address] [place] [address]Vjyxzwesexl (Bld) [#/Vol]0.19 10*3/uLNormal<0.46[facility] on above:Order Comment: Specimen Type: BLOOD SPECIMEN [facility] Address: [address] [place], [place] [address]Performed By: #### 75762-5 #### [facility]ITALKOB[facility] CLIA [id number] [address] [place] [address]Heukiakzheo/100 WBC (Bld)3.2 %NormalUniversity Hospitals St. John Medical Center Comment on above:Order Comment: Specimen Type: BLOOD SPECIMEN [facility] [facility] Address: [address] [place], [place] [address]Performed By: #### 42082-9 #### [facility] CLIA [id number] [address] [place] [address] 39797Hubpcmphnfs distribution width (RBC) [Ratio]14.5 %Normal 11.5-15.0[facility] on above:Order Comment: Specimen Type: BLOOD SPECIMEN Ordering Facility: [facility] Address: [address] [place], [place] [address]Performed By: #### 92328-8 #### [facility] CLIA [id number] [address] [place] [address] 23895Ykovengqay (Bld) [Volume fraction]39.4 %Qfpbcq87.0-51.0 [facility] on above:Order Comment: Specimen Type: BLOOD SPECIMEN Ordering Facility: [facility] Address: [address] [place], [place] [address]Performed By: #### 94425-6 #### [facility] CLIA [id number] [address] [place] [address] 48634Skgurwkjff (Bld) [Mass/Vol]13.6 g/xHLefdcj90.0-17.0[facility] on above:Order Comment: Specimen Type: BLOOD SPECIMEN Ordering Facility: [facility] Address: [address] [place], [place] [address]Performed By: #### 66989-1 #### [facility] CLIA [id number] [address] [place] [address] 02847Itzsqyin granulocytes (Bld) [#/Vol]0.03 10*3/uLNormal<0.10 [facility] on above:Order Comment: Specimen Type: BLOOD SPECIMEN Ordering Facility: [facility] Address: [address] [place], [place] [address]Performed By: #### 69786-9 #### [facility] CLIA [id number] [address] [place] [address] 39889Vrreswlj granulocytes/100 WBC (Bld)0.5 %NormalOhioHealth Grady Memorial Hospital on above:Order Comment: Specimen Type: BLOOD SPECIMEN Ordering Facility: [facility] Address: [address] [place], [place] [address]Performed By: #### 06221-6 #### [facility] CLIA [id number] [address] [place] [address] 88705Ernlzldxorj (Bld) [#/Vol]0.91 10*3/uLLow1.00-4.00[facility] on above:Order Comment: Specimen Type: BLOOD SPECIMEN Ordering Facility: [facility] Address: [address] [place], [place] [address]Performed By: #### 38460-7 #### [facility] CLIA [id number] [address] [place] [address] 65282Jwxvzncrfkd/100 WBC (Bld)15.1 %NormalOhioHealth Grady Memorial Hospital on above:Order Comment: Specimen Type: BLOOD SPECIMEN Ordering Facility: [facility] Address: [address] [place], [place] [address]Performed By: #### 02000-9 #### [facility] CLIA [id number] [address] [place] [address] 45088AMB (RBC) [Entitic mass]28.8 zlWcvgbl40.0-34.0[facility] on above:Order Comment: Specimen Type: BLOOD SPECIMEN Ordering Facility: [facility] Address: [address] [place], [place] [address]Performed By: #### 98678-5 #### [facility] CLIA [id number] [address] [place] [address] 35411YZDO (RBC) [Mass/Vol]34.5 g/kZIrycqq14.5-36.0[facility] on above:Order Comment: Specimen Type: BLOOD SPECIMEN Ordering Facility: [facility] Address: [address] [place], [place] [address]Performed By: #### 32944-9 #### [facility] CLIA [id number] [address] [place] [address] 51929KDP (RBC) [Entitic vol]83.5 rHCwsexh14.0-100.0[facility] on above:Order Comment: Specimen Type: BLOOD SPECIMEN Ordering Facility: [facility] Address: [address] [place], [place] [address]Performed By: #### 73649-7 #### [facility] CLIA [id number] [address] [place] [address] 36686Kltdnjrjr (Bld) [#/Vol]0.39 10*3/uLNormal<0.87[facility] on above:Order Comment: Specimen Type: BLOOD SPECIMEN Ordering Facility: [facility] Address: [address] [place], [place] [address]Performed By: #### 01677-9 #### [facility] CLIA [id number] [address] [place], [place] [address]Mxsxathrd/100 WBC (Bld)6.5 %NormalUniversity Hospitals St. [facility] Comment on above:Order Comment: Specimen Type: BLOOD SPECIMEN Ordering Facility: [facility] Address: [address] [place], [place] [address]Performed By: #### 85553-4 #### [facility] CLIA [id number] [address] [place], [place] [address]Sjijfviifaf (Bld) [#/Vol]4.45 10*3/uLNormal1.45-7.50[facility] on above:Order Comment: Specimen Type: BLOOD SPECIMEN Ordering Facility: [facility] Address: [address] [place], [place] [address]Performed By: #### 23874-1 #### [facility] CLIA [id number] [address] [place] [address] 48621Nzvobuimchq/100 WBC (Bld)74.0 %NormalOhioHealth Grady Memorial Hospital on above:Order Comment: Specimen Type: BLOOD SPECIMEN Ordering Facility: [facility] Address: [address] [place], [place] [address]Performed By: #### 97320-3 #### [facility] CLIA [id number] [address] [place] [address] 72590Fpntrqlqk RBC (Bld) [#/Vol]10*3/uLNormal<0.01[facility] on above:Order Comment: Specimen Type: BLOOD SPECIMEN Ordering Facility: [facility] Address: [address] [place], [place] [address]Performed By: #### 87077-7 #### [facility] CLIA [id number] [address] [place] [address] 19885Bisvntyyi RBC/100 WBC (Bld) [Ratio]0.0 /100 WBCNormalCWilson Health on above:Order Comment: Specimen Type: BLOOD SPECIMEN Ordering Facility: [facility] Address: [address] [place], [place] [address]Performed By: #### 34424-8 #### [facility] CLIA [id number] [address] [place], [place] [address]Isjpbrwc mean volume (Bld) [Entitic vol]9.1 fLNormal9.0-12.7 [facility] on above:Order Comment: Specimen Type: BLOOD SPECIMEN Ordering Facility: [facility] Address: [address] [place], [place] [address]Performed By: #### 06700-5 #### [facility] CLIA [id number] [address] [place], [place] [address]Sbjdbflhh (Bld) [#/Vol]166 10*3/mSUmxzwh787-754LyoriiijgOhioHealth Grady Memorial Hospital on above:Order Comment: Specimen Type: BLOOD SPECIMEN Ordering Facility: [facility] Address: [address] [place], [place] [address]Performed By: #### 34129-8 #### [facility] CLIA [id number] [address] [place] [address] 39634PPL (Bld) [#/Vol]4.72 10*6/uLNormal4.20-6.00[facility] on above:Order Comment: Specimen Type: BLOOD SPECIMEN Ordering Facility: [facility] Address: [address] [place], [place] [address]Performed By: #### 82972-5 #### [facility] CLIA [id number] [address] [place] [address] 13071UUP (Bld) [#/Vol]6.01 10*3/uLNormal3.70-11.00[facility] on above:Order Comment: Specimen Type: BLOOD SPECIMEN Ordering Facility: [facility] Address: [address] [place], [place] [address]Performed By: #### 03843-7 #### [facility] CLIA [id number] [address] [place] [address] 26838CMIFIOvd 44-11-5278NZPQPBTnhmm (SP) Office ([place]) DUC AUSTINQamar Watson ([id number]) 1940 Date Time Provider Department 08/21/24 9:40 [...] AM Signed NAME: Duc Austino CLINIC NO.: [id number] DATE OF SERVICE: August 21, 2024 [facility] Some elements in this clinic [...] - EGD/Colonoscopy: with Dr. Jacob Bear at [facility] Diverticulitis A. Duodenum, biopsy: - Duodenal mucosa [...] to suggest obstruction. 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 Given the imaging appearance and short-term development, these may be infectious/inflammatory in etiology. Therefore, would advise a shor (more content not included)...NormalPomerene Hospitalprehensive metabolic 2000 panelon 56-05-0381Rvqxgvw [Mass/Vol]4.1 g/dLNormal3.9-4.9C[facility] on above:Order Comment: Specimen Type: BLOOD SPECIMENOrdering Facility: [facility] Address:[address] [place], [place] [address]Performed By: #### 53508-9 ####[facility] LABCLIA [id number] [place], [place] [address]EGR [Catalytic activity/Vol]84 U/NRcujsi16-485MvmfwsfjlOhioHealth Grady Memorial Hospital on above:Order Comment: Specimen Type: BLOOD SPECIMENOrdering Facility: [facility] Address:[address] [place], [place] [address]Performed By: #### 32400-5 ####[facility] LABCLIA [id number] [place], [place] [address]DVV [Catalytic activity/Vol]20 U/ALpplxz71-71GpvncftrgOhioHealth Grady Memorial Hospital on above:Order Comment: Specimen Type: BLOOD SPECIMENOrdering Facility: [facility] Address:[address] [place], [place] [address]Performed By: #### 84670-8 ####[facility] LABCLIA [id number] [place], [place] [address]Csatv gap [Moles/Vol]9 mmol/LNormal8-15[facility] on above:Order Comment: Specimen Type: BLOOD SPECIMENOrdering Facility: [facility] Address:[address] [place], [place] [address]Performed By: #### 85541- 8 ####[facility] LABCLIA [id number] [facility] [place], [place] [address]TRF [Catalytic activity/Vol]28 U/SFagfqr79-49ZpzqnjrtuOhioHealth Grady Memorial Hospital on above:Order Comment: Specimen Type: BLOOD SPECIMENOrdering Facility: [facility] Address:[address] [place], [place] [address]Performed By: #### 54816-3 ####[facility] LABCLIA [id number] [place], [place] [address]Xduppjkgk [Mass/Vol]0.6 mg/dLNormal0.2-1.3CWilson Health on above:Order Comment: Specimen Type: BLOOD SPECIMENOrdering Facility: [facility] Address:[address] [place], [place] [address]Performed By: #### 67346- 8 ####[facility] LABCLIA [id number] [facility] [place], [place] [address]Ixunvoi [Mass/Vol]8.9 mg/dLNormal8.5-10.2CWilson Health on above:Order Comment: Specimen Type: BLOOD SPECIMENOrdering Facility: [facility] Address:[address] [place], [place] [address]Performed By: #### 36553-5 ####[facility] LABCLIA [id number] [place], [place] [address]Peumcost [Moles/Vol]106 mmol/L Yzxdyg34-734KnwvjkvssOhioHealth Grady Memorial Hospital on above:Order Comment: Specimen Type: BLOOD SPECIMENOrdering Facility: [facility] Address:[address] [place], [place] [address]Performed By: #### 97906-1 ####[facility] LABCLIA [id number] [place] [address] CO2 [Moles/Vol]26 mmol/MMhjtpd19-57ZteommzogOhioHealth Grady Memorial Hospital on above: Order Comment: Specimen Type: BLOOD SPECIMENOrdering Facility: [facility] Address:[address] [place], [place] [address]Performed By: #### 83662- 8 ####[facility] LABCLIA [id number] [place], [place] [address]Uhyjmwfazi [Mass/Vol]1.72 mg/dLHigh0.73-1.22[facility] on above:Order Comment: Specimen Type: BLOOD SPECIMENOrdering Facility: [facility] Address:[address] [place], [place] [address]Performed By: #### 31397-0 ####[facility] LABIA [id number] [place], [place] [address]Dhnkwcbjso and Glomerular filtration rate.predicted panel (S/P/Bld)38 mL/min/1.73m???Low>=60 [facility] on above:Order Comment: Specimen Type: BLOOD SPECIMENOrdering Facility: [facility] Address:[address] [place], [place] [address]Result Comment: Estimated Glomerular Filtration Rate (eGFR) is calculated using the 2020 CKD-EPI creatinine equation. This equation utilizes serum creatinine, sex, and age as parameters. The creatinine assay has traceable calibration to isotope dilution-mass spectrometry. Refer to KDIGO guidelines for clinical interpretation. In patients with unstable renal function, e.g. those with acute kidney injury, the eGFR may not accurately reflect actual GFR.Performed By: #### 45925-4 ####[facility] LABCLIA [id number] [place], [place] [address]Yskxeaq [Mass/Vol]102 mg/jKUslt37-96HmnhfeoobOhioHealth Grady Memorial Hospital on above:Order Comment: Specimen Type: BLOOD SPECIMENOrdering Facility: [facility] Address:[address] [place], [place] [address]Result Comment: The [place] Diabetes Association (ADA) provides guidance for cutoff [...] Standards of Medical Care in Diabetes 2016, [place] [employer] Association. Diabetes Care. 2016.39(Suppl 1).Performed By: #### 47531-8 ####[facility] LABCLIA [id number] [place], [place] [address]Btnhwrvyl [Moles/Vol]4.6 mmol/LNormal3.7-5.1CWilson Health on above:Order Comment: Specimen Type: BLOOD SPECIMENOrdering Facility: [facility] Address:[address] [place], [place] [address]Performed By: #### 17063-9 ####[facility] LABCLIA [id number] [place], [place] [address]Owtjwdf [Mass/Vol]6.1 g/dLLow6.3-8.0[facility] on above:Order Comment: Specimen Type: BLOOD SPECIMENOrdering Facility: [facility] Address:[address] [place], [place] [address]Performed By: #### 07868- 8 ####[facility] LABCLIA [id number] [place], [place] [address]Rhhncc [Moles/Vol]141 mmol/MAhokuo372-253GimdagcogOhioHealth Grady Memorial Hospital on above:Order Comment: Specimen Type: BLOOD SPECIMENOrdering Facility: [facility] Address:[address] [place], [place] [address]Performed By: #### 58551-2 ####[facility] LABCLIA [id number] [place], [place] [address]Vsbn nitrogen [Mass/Vol]34 mg/dLHigh9-24[facility] on above:Order Comment: Specimen Type: BLOOD SPECIMENOrdering Facility: [facility] Address:[address] [place], [place] [address]Performed By: #### 15813-9 ####[facility] LABCLIA [id number] [place] [address] Cortis SerPl-mCncon 25-13-5809Hekkcpio [Mass/Vol]6.0 ug/dLNormal4.8-19.5 [facility] on above:Order Comment: Specimen Type: BLOOD SPECIMENOrdering Facility: [facility] Address:[address] [place], [place] [address]Result Comment: Provided reference range is from 6-10 AM sample collection time. Cortisol Reference Range: 6-10 AM = 4.8-19.5 ug/dL, 4-8 PM = 2.5-11.9 ug/dL Performed By: #### 3016-3, 2143-6 ####[facility] LABCLIA [id number] [facility] [id number] [facility] HbA1c (Bld)on 46-60-1202Nnhsbzm glucose Estimated from glycated hemoglobin (Bld) [Mass/Vol]97 mg/dLNormalCWilson Health on above:Order Comment: Specimen Type: BLOOD SPECIMENOrdering Facility: [facility] Address:[address] [place], [place] [address]Result Comment: eAG: (Estimated average glucose) is a calculated value from HgbA1c and is representa tive of the average blood glucose level in the last 2-3 month period.Performed By: #### 74672-3 ####[facility] LABCLIA [id number] [place] [address] [place] OENQOAEZdS4w (Bld) [Mass fraction]5.0 %Normal4.3-5.6CWilson Health on above:Order Comment: Specimen Type: BLOOD SPECIMENOrdering Facility: [facility] Address:[address] [place], [place] [address]Result Comment: [place] Diabetes Association guidelines indicate that patients with HgbA1c in the range 5.7-6.4% are at increased risk for development of diabetes, and intervention by lifestyle modification may be beneficial. HgbA1c greater or equal to 6.5% is considered diagnostic of diabetes.Performed By: #### 53696-0 ####[facility] [id number] [place] [address] [place] [facility] HEALTHCARETS SerPl-aCncon 30-65-3126YBL Qn2.260 m[IU]/L Normal0.270-4.200[facility] on above:Order Comment: Specimen Type: BLOOD SPECIMENOrdering Facility: [facility] Address:[address] [place], [place] [address]Performed By: #### 3016-3, 2143-6 ####[facility] [id number] [place] [address] [place] AMERICACT ABD/PEL W IVCONon 05-66-5997CG ABD/PEL W IVCON* * *Final Report* * * DATE OF EXAM: Jun 29 2024 9:00AM [facility] 0530 - CT ABD/PEL W [...] performed concurrently and will be dictated separately. Telegraph Plant Maintainer (topogram) images: No additional findings. IMPRESSION: Stable [...] any questions regarding this interpretation, please call [phone]. If you are unable to reach us at the number above, please feel free to contact [facility] at [phone]. [id number] [facility] Abdomen and Pelvis W contrast [place] 92-39-8915VRLRFENGPM: Stable CT examination the abdomen and pelvis [...] any questions regarding this interpretation, please call [phone]. If you are unable to reach us at the number above, please feel free to contact [facility] at [phone].DIVISION OF RADIOLOGY* * *Final Report* * * DATE OF EXAM: Jun 29 2024 9:00AM [facility] 0530 - CT ABD/PEL W [...] performed concurrently and will be dictated separately. [employer] Plant Maintainer (topogram) images: No additional findings. DIVISION OF RADIOLOGYProvider, [facility] - 06/29/2024 * * *Final Report* * * DATE OF EXAM: Jun 29 2024 9:00AM [facility] 0530 - CT ABD/PEL W [...] performed concurrently and will be dictated separately. [employer] Plant Maintainer (topogram) images: No additional findings. IMPRESSION IMPRESSION: [...] any questions regarding this interpretation, please call [phone]. If you are unable to reach us at the number above, please feel free to contact [facility] at [phone]. [facility] CHEST W IVCONon 58-95-2373DI CHEST W IVCON* * *Final Report* * * DATE OF EXAM: Jun 29 2024 9:00AM [facility] 0539 - CT CHEST W [...] performed concurrently and will be dictated separately. [employer] Plant Maintainer (topogram) images: No additional findings. IMPRESSION: 1. [...] any questions regarding this interpretation, please call [phone]. If you are unable to reach us at the number above, please feel free to contact [facility] at [phone]. [id number] [facility] Chest W contrast [place] 37-40-8860ZNAMMOQDUF: 1. Mild soft tissue prominence at the [...] any questions regarding this interpretation, please call [phone]. If you are unable to reach us at the number above, please feel free to contact [facility] at [phone].DIVISION OF RADIOLOGY* * *Final Report* * * DATE OF EXAM: Jun 29 2024 9:00AM [facility] 0539 - CT CHEST W [...] performed concurrently and will be dictated separately. [employer] Plant Maintainer (topogram) images: No additional findings. DIVISION OF RADIOLOGYProvider, [facility] - 06/29/2024 * * *Final Report* * * DATE OF EXAM: Jun 29 2024 9:00AM [facility] 0539 - CT CHEST W [...] performed concurrently and will be dictated separately. [employer] Plant Maintainer (topogram) images: No additional findings. IMPRESSION IMPRESSION: [...] any questions regarding this interpretation, please call [phone]. If you are unable to reach us at the number above, please feel free to contact [facility] at [phone]. [facility] Panel InformationOrdered By: Ccf Provider on 06-29-2024 [facility] Panel Informationon 18-00-8670Ccgjgduwt Study observation (narrative)[facility] MemorialCNOVSPon 19-40-3081ARMFZJBdfio (SP) Office ([place]) JUAN JOSE AUSTIN ([id number]) 1940 M Date Time Provider Department 05/18/24 1:00 PM GRAEME VAZQUEZ During your visit today, we recorded the following information about you: Temperature Pulse Respiration Blood pressure 97.1 degrees 66/minute 16/minute 121/63 Weight Height 68.7 kg 1.62 m Graeme Vazquez MD 05/19/2024 11:18 AM Signed NAME: Juan Jose Austin NO.: [id number] DATE OF SERVICE: May 18, 2024 (Eve) [...] to suggest obstruction. 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 This is (more content not included)...NormalCommunity [facility] metabolic 2000 panelon 64-77-0191Ikuxars [Mass/Vol]4.1 g/dLNormal3.9-4.9C[facility] on above:Order Comment: Specimen Type: BLOOD SPECIMENOrdering Facility: [facility] Address:[address] [place], [place] [address]Performed By: #### 34904-0 ####[facility] LABCLIA [id number] [facility] [place] [place], [place] [address]MIJ [Catalytic activity/Vol]109 U/EAcsroy60-421DudzspcsvOhioHealth Grady Memorial Hospital on above:Order Comment: Specimen Type: BLOOD SPECIMENOrdering Facility: [facility] Address:[address] [place], [place] [address]Performed By: #### 30534-6 ####[facility] LABCLIA [id number] [place], [place] [address]WLZ [Catalytic activity/Vol]34 U/KTmiuih80-21CmpzmcimsOhioHealth Grady Memorial Hospital on above:Order Comment: Specimen Type: BLOOD SPECIMENOrdering Facility: [facility] Address:[address] [place], [place] [address]Performed By: #### 80892- 8 ####[facility] LABCLIA [id number] [place], [place] [address]Pnduu gap [Moles/Vol]9 mmol/LNormal8-15[facility] on above:Order Comment: Specimen Type: BLOOD SPECIMENOrdering Facility: [facility] Address:[address] [place], [place] [address]Performed By: #### 20096-2 ####[facility] LABIA [id number] [place], [place] [address]JTC [Catalytic activity/Vol]33 U/ZWgxhrl82-85FevxpxszdOhioHealth Grady Memorial Hospital on above:Order Comment: Specimen Type: BLOOD SPECIMENOrdering Facility: [facility] Address:[address] [place], [place] [address]Performed By: #### 34648-4 ####[facility] LABCLIA [id number] [facility] [place] [address] Bilirubin [Mass/Vol]0.7 mg/dLNormal0.2-1.3C[facility] on above:Order Comment: Specimen Type: BLOOD SPECIMENOrdering Facility: [facility] Address:[address] [place], [place] [address]Performed By: #### 91520-3 ####[facility] LABCLIA [id number] [place], [place] [address]Xjlwumi [Mass/Vol]9.4 mg/dLNormal8.5-10.2C[facility] on above:Order Comment: Specimen Type: BLOOD SPECIMENOrdering Facility: [facility] Address:[address] [place], [place] [address]Performed By: #### 12695-1 ####[facility] LABCLIA [id number] [facility] [place], [place] [address]Bmwzxauh [Moles/Vol]110 mmol/ECsal40-801QsqwnsadlOhioHealth Grady Memorial Hospital on above:Order Comment: Specimen Type: BLOOD SPECIMENOrdering Facility: [facility] Address:[address] [place], [place] [address]Performed By: #### 54103- 8 ####[facility] LABCLIA [id number] [facility] [place], [place] [address]SS0 [Moles/Vol]27 mmol/BNogdrs43-42KvkedrtxsOhioHealth Grady Memorial Hospital on above:Order Comment: Specimen Type: BLOOD SPECIMENOrdering Facility: [facility] Address:[address] [place], [place] [address]Performed By: #### 08567-7 ####[facility] LABCLIA [id number] [facility], [place], [place] [address]Utnjdhvjaf [Mass/Vol]1.89 mg/dL High0.73-1.22[facility] ClevelandComment on above:Order Comment: Specimen Type: BLOOD SPECIMENOrdering Facility: [facility] Address:[address] [place], [place] [id number] By: #### 41225-8 ####[facility] LABCLIA [id number] [place] [address] Creatinine and Glomerular filtration rate.predicted panel (S/P/Bld)34 mL/min/1.73m???Low>=60[facility] on above:Order Comment: Specimen Type: BLOOD SPECIMENOrdering Facility: [facility] Address:[address] [place], [place] [id number] Comment: Estimated Glomerular Filtration Rate (eGFR) is calculated using the 2020 CKD-EPI creatinine equation. This equation utilizes serum creatinine, sex, and age as parameters. The creatinine assay has traceable calibration to isotope dilution-mass spectrometry. Refer to KDIGO guidelines for clinical interpretation. In patients with unstable renal function, e.g. those with acute kidney injury, the eGFR may not accurately reflect actual GFR.Performed By: #### 61889-0 ####[facility] LABCLIA [id number] [place] [address] Glucose [Mass/Vol]111 mg/fRAitk70-34DwcthkaqiOhioHealth Grady [facility] Hospital on above: Order Comment: Specimen Type: BLOOD SPECIMENOrdering Facility: [facility] Address:[address] [place] [address]Mgsxsx Comment: The [place] Diabetes Association (ADA) provides guidance for cutoff [...] Standards of Medical Care in Diabetes 2016, [place] [employer]. Diabetes Care. 2016.39(Suppl 1).Performed By: #### 51172-4 ####[facility] LABCLIA [id number] [place], [place] [address]Taoydecem [Moles/Vol]4.5 mmol/LNormal3.7-5.1CWilson Health on above:Order Comment: Specimen Type: BLOOD SPECIMENOrdering Facility: [facility] Address:[address] [place], [place] [address]Performed By: #### 73794-9 ####[facility] LABCLIA [id number] [place], [place] [address]Ekzbees [Mass/Vol]6.3 g/dLNormal6.3-8.0[facility] on above:Order Comment: Specimen Type: BLOOD SPECIMENOrdering Facility: [facility] Address:[address] [place], [place] [address]Performed By: #### 08041- 8 ####[facility] LABCLIA [id number] [place], [place] [address]Asacyx [Moles/Vol]146 mmol/IPzlq107-037BstwrxahlOhioHealth Grady Memorial Hospital on above:Order Comment: Specimen Type: BLOOD SPECIMENOrdering Facility: [facility] Address:[address] [place], [place] [address]Performed By: #### 01354-6 ####[facility] LABIA [id number] [place], [place] [address]Dwoq nitrogen [Mass/Vol]43 mg/dLHigh9-24[facility] on above:Order Comment: Specimen Type: BLOOD SPECIMENOrdering Facility: [facility] Address:[address] [place], [place] [address]Performed By: #### 36567-0 ####[facility] LABIA [id number] [place] [address] TSH SerPl-aCncon 23-56-7260CCT Qn2.600 m[IU]/LNormal0.270-4.200[facility] on above:Order Comment: Specimen Type: BLOOD SPECIMENOrdering Facility: [facility] Address:[address] [place] [id number] By: #### 3016-3 ####[facility] LABCLIA [id number] [id number], [place] [address] [place] Basic Metabolic Panelon 79-34-0175Cfcbw gap [Moles/Vol]7 mmol/LLow9 - 17 mmol/L [facility] Zappedy [facility] HOSPITALCalcium [Mass/Vol]8.2 mg/dLLow8.6 - 10.4 mg/dLB[facility] Nottingham TechnologyChloride [Moles/Vol]107 mmol/L98 - 107 mmol/LBON [facility] Nottingham TechnologyCO2 [Moles/Vol]27 mmol/L20 - 31 mmol/[facility] [employer] Creatinine [Mass/Vol]1.6 mg/dLHigh0.7 - 1.2 mg/dLB[facility] Nottingham TechnologyEst, Glom Filt Ldfc72Ozy- PINFBON [facility] on above: These results are [...] that affects renal tubular secretion. Glucose [Mass/Vol]117 mg/fOPjli65 - 99 mg/dLB[facility] Nottingham Technology Interpretation and review of laboratory resultsAbnormalBON [facility] [employer] Technology Potassium [Moles/Vol]3.7 mmol/L3.7 - 5.3 mmol/LBON [facility] Nottingham TechnologySodium [Moles/Vol]141 mmol/L135 - 144 mmol/LBON [facility]OSPITALInvestoprestoUrea nitrogen [Mass/Vol]26 mg/dLHigh8 - 23 mg/dLB[facility] Nottingham TechnologyUrea nitrogen/Creatinine [Mass ratio]16 mg/mg9 - 20BON [facility] STATE HOSPITALMobypark [facility] HOSPITALBON SECBioMCN [facility] HOSPITALBasic Metabolic Profon 39-15-2040Fbysi gap [Moles/Vol]7 mmol/LLow9-17[facility]ma Medical CenterComment on above:Performed By: #### TIP, TROPI, BMP #### [address] [place] [address] Business Continuity Global Director: RDAKE Olivas/CRE Vhcof07Ajegrm6-41Paqhl [facility] Comment on above:Performed By: #### TIP TROPI, BMP #### [address] [place] [address] Business Continuity Global Director: SHEREE Olivasalcium [Mass/Vol]8.2 mg/dLLow8.6-10.4[facility] Parma Medical CenterComment on above:Performed By: #### TIP TROPI, BMP #### [address] [place] [address] Business Continuity Global Director: SHEREE Olivashloride [Moles/Vol]107 mmol/NRyccmw76-727Ovflo [facility] HospitalComment on above:Performed By: #### TIP TROPI, BMP #### [address] [place] [address] Business Continuity Global Director: SHEREE OlivasO2 [Moles/Vol]27 mmol/OUblcnb56-81MzfymUniversity Hospitals Parma Medical CenterComment on above:Performed By: #### TIP TROPI, BMP #### [address] [place] [address] Business Continuity Global Director: SHEREE Olivasreatinine [Mass/Vol]1.6 mg/dLHigh0.7-1.2[facility]esia HospitalComment on above:Performed By: #### TIP TROPI, BMP #### [address] [place], [place] [id number] Business Continuity Global Director: Augusto Sidhu MDGFR/1.73 sq M.predicted among non-blacks MDRD (S/P/Bld) [Vol rate/Area]42 mL/min/{1.73_m2}Low>60Mer[facility] Artesia HospitalComment on above:Result Comment: These results are [...] secretion.Performed By: #### YOHAN WHELAN, BMP #### [address] [place], [place] [address] Business Continuity Global Director: Augusto Sidhu MDGlucose [Mass/Vol]117 mg/cOHuxx64-34Osgwh [facility] General HospitalComment on above:Performed By: #### YOHAN WHELAN BMP #### [address] [place], [place] [address] Business Continuity Global Director: JEREMY Olivasotassium [Moles/Vol]3.7 mmol/LNormal3.7-5.3Mer[facility] Artesia HospitalComment on above:Performed By: #### YOHAN WHELAN BMP #### [address] [place], [place] [id number] Business Continuity Global Director: ROCIO Olivasodium [Moles/Vol]141 mmol/ZGdpebm149-722OktszUniversity Hospitals Parma Medical CenterComment on above:Performed By: #### YOHAN WHELAN, BMP #### [address] [place], [place] [address] Business Continuity Global Director: Augusto Sidhu MDUrea nitrogen [Mass/Vol]26 mg/dLHigh8-23MerYale New Haven Children's HospitalComment on above:Performed By: #### YOHAN WHELAN, BMP #### [address] [place], [place] [id number] Business Continuity Global Director: Augusto Sidhu [facility] with Auto Differentialon 87-36-6979Zfasacrns (Bld) [#/Vol]0.07 10*3/uLBON SEC[facility]RS [facility] HOSPITALY HEALTHBasophils/100 WBC (Bld)1 %0 - 2 %[facility] HEALTHEosinophils (Bld) [#/Vol]0.45 10*3/uLHighBON SECOURS MERCY HEALTHEosinophils/100 WBC (Bld)5 %High1 - 4 %[facility] HEALTH Erythrocyte distribution width (RBC) [Ratio]14.2 %11.8 - 14.4 %[facility] HOSPITALY HEALTHHematocrit (Bld) [Volume fraction]36.5 %Low40.7 - 50.3 %[facility] HEALTHHemoglobin (Bld) [Mass/Vol]11.9 g/dLLow13.0 - 17.0 g/dLBON SECOURS MADISON HEALTHImmature granulocytes (Bld) [#/Vol]0.03 10*3/uLBON [facility]ALTH Immature granulocytes/100 WBC (Bld)0 %0B[facility] HEALTHInterpretation and review of laboratory resultsAbnormalBON SECOURS K[facility]ORIAL HOSPITALY HEALTHLymphocytes/100 WBC (Bld)10 %Low24 - 43 %[facility] HOSPITALY HEALTHLymphocytes/100 WBC (Bld)0.82 % LowBON SECOURS [facility]AST HOSPITALH (RBC) [Entitic mass]27.7 pg25.2 - 33.5 pgBON SECOURS OH[facility] STATE EAST HOSPITALHC (RBC) [Mass/Vol]32.6 g/dL28.4 - 34.8 g/dLBON SECOURS OH[facility] STATE EAST HOSPITALV (RBC) [Entitic vol]85.1 fL82.6 - 102.9 fLBON SECOURS KETTERING MEMORIAL HOSPITALY HEALTHMonocytes/100 WBC (Bld)8 %3 - 12 %[facility] HEALTHMonocytes/100 WBC (Bld)0.63 %[facility] HOSPITALY HEALTHNeutrophils/100 WBC (Bld)76 %High36 - 65 %[facility] HOSPITALY HEALTHNucleated RBC/100 WBC (Bld) [Ratio]0.0 %0.0 per 100 WBC [facility] HOSPITALY HEALTHPlatelet mean volume (Bld) [Entitic vol]8.5 fL8.1 - 13.5 fLBON SECOURS MERCY HEALTHPlatelets (Bld) [#/Vol]290 10*3/uLBON [facility] MEDICAL CENTERRBC (Bld) [#/Vol]4.29 10*6/uL4.21 - 5.77 m/[facility] Segmented neutrophils/100 WBC (Bld)6.45 %BON [facility] MEDICAL CENTERWBC other (Bld) [#/Vol]8.5BON [facility] HOSPITALCBC with Diffon 09-45-1895Bsi. Basophil0.07 k/uLNormal0.00-0.20[facility] HospitalComment on above:Performed By: #### TIP TROPI, BMP #### [address] [place] [id number] Business Continuity Global Director: Trevor Olivas.Imm.Granulocyte0.03 k/uLNormal0.00-0.30[facility] HospitalComment on above:Performed By: #### TIP TROPI, BMP #### [address] [place], [place] [address] Business Continuity Global Director: Trevor Olivas.Neutrophil (Seg)6.45 k/uLNormal1.50-8.10[facility] HospitalComment on above:Performed By: #### TIP TROPI, BMP #### [address] [place], [facility]83 Business Continuity Global Director: Augusto Sidhu MDBasophils/100 WBC (Bld)1 %Normal0-2MUniversity Hospitals Cleveland Medical Center HospitalComment on above:Performed By: #### TIP TROPI, BMP #### [address] [place], [facility]83 Business Continuity Global Director: Augusto Sidhu MDEosinophils (Bld) [#/Vol]0.45 10*3/uLHigh0.00-0.44 [facility] HospitalComment on above:Performed By: #### TIP, TROPI, BMP #### [address] [place], [place] [address] Business Continuity Global Director: Augusto Sidhu MDEosinophils/100 WBC (Bld)5 %High1-4[facility] Parma Medical CenterComment on above:Performed By: #### CDP, TROPI, BMP #### [address] [place] [address] Business Continuity Global Director: Augusto Sidhu MDErythrocyte distribution width (RBC) [Ratio]14.2 % Ksaqtr28.8-14.4[facility] HospitalComment on above:Performed By: #### TIP TROPI, BMP #### [address] [place] [address] Business Continuity Global Director: Augusto Sidhu MDHematocrit (Bld) [Volume fraction]36.5 %Low 40.7-50.3Mer[facility] Artesia HospitalComment on above:Performed By: #### TIP TROPI, BMP #### [address] [place], [place] [address] Business Continuity Global Director: Augusto Sidhu MDHemoglobin (Bld) [Mass/Vol]11.9 g/dLLow13.0-17.0 [facility] Medical CenterComment on above:Performed By: #### TIP TROPI, BMP #### [address] [place], [place] [address] Business Continuity Global Director: Augusto Sidhu MDImmature granulocytes/100 WBC (Bld)0 %Uonexk2Mpzvd [facility]in HospitalComment on above:Performed By: #### TIP, TROPI, BMP #### [address] [place] [id number] Business Continuity Global Director: Augusto Sidhu MDLymphocytes (Bld) [#/Vol]0.82 10*3/uLLow1.10-3.70 [facility] Medical CenterComment on above:Performed By: #### TIP, TROPI, BMP #### [address] [place] [address] Business Continuity Global Director: Gay Olivasmphocytes/100 WBC (Bld)10 %Zzs98-62Pgnxh [facility] HospitalComment on above:Performed By: #### TIP, TROPI, BMP #### [address] [place], [place] [address] Business Continuity Global Director: DANDRE Olivas (RBC) [Entitic mass]27.7 wiMqyqiv21.2-33.5 [facility] HospitalComment on above:Performed By: #### PEGGY WHELANI, BMP #### [address] [place], [place] [address] Business Continuity Global Director: DANDRE OlivasC (RBC) [Mass/Vol]32.6 g/tIKaitju14.4-34.8[facility] HospitalComment on above:Performed By: #### TIP TROPI, BMP #### [address] [place] [address] Business Continuity Global Director: LORNA OlivasCV (RBC) [Entitic vol]85.1 nTBnqzgk32.6-102.9 [facility] HospitalComment on above:Performed By: #### TIP TROPI, BMP #### [address] [place] [address] Business Continuity Global Director: LORNA Olivasonocytes (Bld) [#/Vol]0.63 10*3/uLNormal0.10-1.20 [facility] HospitalComment on above:Performed By: #### TIP, TROPI, BMP #### [address] [place], [place] [address] Business Continuity Global Director: LORNA Olivasonocytes/100 WBC (Bld)8 %Normal3-12[facility] HospitalComment on above:Performed By: #### TIP, TROPI, BMP #### [facility] [address] [place] [address] Business Continuity Global Director: Lilly Olivas (Seg)76 %Ckmt56-80HraedUniversity Hospitals Parma Medical Center Comment on above:Performed By: #### CDP, TROPI, BMP #### [address] [place] [address] Business Continuity Global Director: NAYELI Olivas Automated0.0 per 100 WBCNormal0.0[facility] Medical CenterComment on above:Performed By: #### TIP, TROPI, BMP #### [address] [place] [address] Business Continuity Global Director: Micah Olivas mean volume (Bld) [Entitic vol]8.5 fL Normal8.1-13.5[facility] Medical CenterComment on above:Performed By: #### TIP, TROPI, BMP #### [address] [place] [address] Business Continuity Global Director: Vasquez Olivas (Bld) [#/Vol]290 10*3/vDOvelon850-174 [facility] Medical CenterComment on above:Performed By: #### TIP, TROPI, BMP #### [address] [place] [address] Business Continuity Global Director: ABEL Olivas (Bld) [#/Vol]4.29 10*6/uLNormal4.21-5.77[facility] Medical CenterComment on above:Performed By: #### TIP, TROPI, BMP #### [address] [place], [place] [address] Business Continuity Global Director: PANDA Olivas (Bld) [#/Vol]8.5 10*3/uLNormal3.5-11.3MCleveland Clinic Marymount HospitalComment on above:Performed By: #### CDP, TROPI, [facility] #### [facility] [address] [place] [address] Business Continuity Global Director: JON Olivas CHEST PULMONARY EMBOLISM W CONTRASTon [id number] CHEST PULMONARY EMBOLISM W CONTRASTEXAMINATION: CTA OF [...] No acute bone or soft tissue abnormality. [facility] Venus Holcomb MD - 03/22/2024 EXAMINATION: CTA [...] and ingested material distension of the stomach. [facility] XunleiRadiology Study observation (narrative)[facility] EL[facility] MEDICAL CENTERBioMCN [facility] HOSPITALCT CHEST PULMONARY EMBOLISM W CONTRASTOrdered By: Venus Dumont on 50-30-2564DGH Xunlei Work Phone: [phone]-Qgjmm Teston 70-25-4635K-Dimer Test1.08 ug/mL FEU High0.00-0.59[facility] on above:Result Comment: When combined with a [...] patients with distal DVT.Performed By: #### VITALY ####[address] [place] [address] lab Director: Augusto Sidhu MDD-Dimer, Quantitativeon 71-38-7566Bsieez D-dimer FEU (PPP) [Mass/Vol]1.08[facility] on above: When combined with a low [...] distal DVT. Interpretation and review of laboratory resultsAbBon Secours Health SystemPlayPhone XR Chest AP single viewon 11-22-5875Kl acute airspace disease identified. [facility] CONSOLIDATEDEXAMINATION: ONE XRAY VIEW OF THE CHEST [...] Surgical clips project over the mid abdomen. [facility] Benji Phelan MD - 03/22/2024 EXAMINATION: ONE [...] abdomen. IMPRESSION: No acute airspace disease identified. [facility] MED[facility] CENTERFirst30Days FormisimoRadiology Study observation (narrative)[facility] Tiangua Online FormisimoTerre Haute Regional HospitalCricHQ XR Chest AP single viewOrdered By: Benji Castro on [id number] SECFirst30Days Formisimo Work Phone: Troponinon 11-37-5047Taasvzcivznfot and review of laboratory resultsAbnormalWELLMONT HEALTH SYSTEMTroponin I.cardiac High sensitivity method [Mass/Vol]69 ng/LCritically high0 - 22 ng/LBON [facility] MEDICAL CENTERComment on above:High Sensitivity Troponin values cannot be compared with other Troponin methodologies.WELLMONT HEALTH SYSTEMTroponin, High Sens69 ng/L Critically high0-22[facility] Medical CenterComfresenius medical care at [facility] on above:Result Comment: High Sensitivity Troponin values cannot be compared with other Troponin methodologies.Performed By: #### TROPI ####[facility] [place] [address] Lab Director: Augusto Sidhu MD Interpretation and review of laboratory resultsAbnoVirginia Hospital Center Troponin I.cardiac High sensitivity method [Mass/Vol]73 ng/LCritically high0 - 22 ng/LBON [facility] MEDICAL CENTERComfresenius medical care at [facility] on above:High Sensitivity Troponin values cannot be compared with other Troponin methodologies.[facility] Troponin, High Sens73 ng/LCritically high0-22[facility] Medical CenterComfresenius medical care at [facility] on above:Result Comment: High Sensitivity Troponin values cannot be compared with other Troponin methodologies.Performed By: #### CDP, TROPI, BMP #### [address] [place] [address] Business Continuity Global Director: MALORIE Olivas CHEST PORTABLEon [id number] CHEST PORTABLE EXAMINATION: ONE XRAY VIEW OF [...] Castro MD 03/22/24 Final resultNoAvita Health System Abdomen and Pelvis W contrast [place] [id number]: 1. Stable appearance of geographic area of [...] any questions regarding this interpretation, please call [phone]. If you are unable to reach us at the number above, please feel free to contact [facility] at [phone].DIVISION OF RADIOLOGY* * *Final Report* * * DATE OF EXAM: Jan 24 2024 1:25PM [facility] 0530 - CT ABD/PEL W [...] images: No additional findings. DIVISION OF RADIOLOGYProvider, [facility] - 01/27/2024 * * *Final Report* * * DATE OF EXAM: Jan 24 2024 1:25PM [facility] 0530 - CT ABD/PEL W [...] any questions regarding this interpretation, please call [phone]. If you are unable to reach us at the number above, please feel free to contact [facility] eRadiology at [phone]. [facility] Abdomen and Pelvis W contrast IVOrdered By: Ccf Provider on 27-62-0963Pccygaxld [facility] HospitalCT Chest W contrast [place] 10-89-7174Bjmeacuurmqkbe and review of laboratory resultsAbnormalCCommunity Memorial HospitalRadiology ResultACTIONABLE AbnormalKettering Health Greene MemorialComment on above:This report contains an incidental or [...] be communicated with the ordering provider via Barcoding staff message or phone message by Imaging Support Services within 2 business days of report finalization. --END OF FINDING-- Algorithms for management of incidental imaging findings can be found on the [facility] Intranet Sharepoint site at: [email or web address]/Managing%20Incidental%20Findi ngs%20at%20Imaging/Forms/AllItems.aspx Transcribe Date/Time: Jan 27 2024 8:36A Dictated by: LIO OSORIO MD This examination was interpreted and the report reviewed and electronically signed by: LIO OSROIO MD on Jan 27 2024 8:50AM EST Thank you for allowing us to participate in the care of your patient. Should there be any questions regarding this interpretation, please call [phone]. If you are unable to reach us at the number above, please feel free to contact [facility] at [phone].DIVISION OF RADIOLOGY* * *Final Report* * * DATE OF EXAM: Jan 24 2024 1:25PM [facility] 0539 - CT CHEST W [...] images: No additional findings. DIVISION OF RADIOLOGYProvider, [facility] - 01/27/2024 * * *Final Report* * * DATE OF EXAM: Jan 24 2024 1:25PM [facility] 0539 - CT CHEST W [...] be communicated with the ordering provider via Barcoding staff message or phone message by Imaging Support Services within 2 business days of report finalization. --END OF FINDING-- Algorithms for management of incidental imaging findings can be found on the [facility] Intranet Sharepoint site at: [email or web address]%20Incidental%20Findi ngs%20at%20Imaging/Forms/AllItems.aspx Transcribe Date/Time: Jan 27 2024 8:36A Dictated by: LIO OSORIO MD This examination was interpreted and the report reviewed and electronically signed by: LIO OSORIO MD on Jan 27 2024 8:50AM EST Thank you for allowing us to participate in the care of your patient. Should there be any questions regarding this interpretation, please call [phone]. If you are unable to reach us at the number above, please feel free to contact [facility] eRadiology at [phone]. [facility] W Auto Differential panel (Bld)on 01-24-2024 Basophils (Bld) [#/Vol]0.03 10*3/uLNISalem City Hospital ClinicBasophils/100 WBC (Bld) 0.4 %[facility] MemorialDifferential cell count method Nom (Bld)AutoCleveland ClinicEosinophils (Bld) [#/Vol]0.12 10*3/uLNINFKettering Health Greene MemorialEosinophils/100 WBC (Bld)1.6 %[facility] MemorialErythrocyte distribution width (RBC) [Ratio]17.1 % High11.5 - 15.0 %[facility] MemorialHematocrit (Bld) [Volume fraction]38.0 %Low39.0 - 51.0 %[facility] MemorialHemoglobin (Bld) [Mass/Vol]12.4 g/dLLow13.0 - 17.0 g/dL [facility] MemorialImmature granulocytes (Bld) [#/Vol]0.03 10*3/uLNINFKettering Health Greene MemorialImmature granulocytes/100 WBC (Bld)0.4 %[facility] MemorialInterpretation and review of laboratory resultsAbnormalCleveland ClinicLymphocytes (Bld) [#/Vol] 0.47 10*3/uLLowKettering Health Greene MemorialLymphocytes/100 WBC (Bld)6.5 %Madison HealthH (RBC) [Entitic mass]27.9 pg26.0 - 34.0 pgClevelRedwood LLCHC (RBC) [Mass/Vol] 32.6 g/dL30.5 - 36.0 g/dLKettering Health Greene MemorialMCV (RBC) [Entitic vol]85.6 fL80.0 - 100.0 fLCleveland ClinicMonocytes (Bld) [#/Vol]0.50 10*3/uLNINFKettering Health Greene Memorial Monocytes/100 WBC (Bld)6.9 %[facility] MemorialNeutrophils (Bld) [#/Vol]6.13 10*3/uLKettering Health Greene MemorialNeutrophils/100 WBC (Bld)84.2 %[facility] MemorialNucleated RBC (Bld) [#/Vol]NINFClevelAultman HospitalNucleated RBC/100 WBC (Bld) [Ratio]0.0 % /100 WBCKettering Health Greene MemorialPlatelet mean volume (Bld) [Entitic vol]9.0 fL9.0 - 12.7 fLClevelnovant health pender medical center ClinicPlatelets (Bld) [#/Vol]206 10*3/uLKettering Health Greene MemorialRBC (Bld) [#/Vol]4.44 10*6/uL4.20 - 6.00 m/[facility] Orrville HospitalWBC (Bld) [#/Vol]7.28 10*3/uL Berger HospitalComprehensive metabolic 2000 panelOrdered By: Skylar Orona on [id number] [Mass/Vol]3.1 g/dLLow3.9 - 4.9 g/dLRea ClinicALP [Catalytic activity/Vol]59 U/L38 - 113 U/LCleveland ClinicALT [Catalytic activity/Vol]20 U/L10 - 54 U/LCleveland ClinicAnion gap [Moles/Vol]7 mmol/LLow9 - 18 mmol/LCleveland ClinicAST [Catalytic activity/Vol]23 U/L14 - 40 U/LCleveland ClinicBilirubin [Mass/Vol]0.4 mg/dL0.2 - 1.3 mg/dLCleveland Clinic Calcium [Mass/Vol]8.4 mg/dLLow8.5 - 10.2 mg/dLRea ClinicChloride [Moles/Vol]108 mmol/LHigh97 - 105 mmol/LCleveland ClinicCO2 [Moles/Vol]30 mmol/L 22 - 30 mmol/LCleveland ClinicCreatinine [Mass/Vol]1.55 mg/dLHigh0.73 - 1.22 mg/dLRea ClinicGFR/1.73 sq M.predicted among non-blacks MDRD (S/P/Bld) [...] eGFRmay not accurately reflect actual GFR.Glucose [Mass/Vol]107 mg/mQBwpn85 - 99 mg/dLKettering Health Greene MemorialComment on above:The [place] Diabetes Association (ADA) provides guidance for cutoff [...] Standards of Medical Care in Diabetes 2016, [place] [employer]. Diabetes Care. 2016.39(Suppl 1). Interpretation and review of laboratory resultsAbnormalCleveland ClinicPotassium [Moles/Vol]3.7 mmol/L3.7 - 5.1 mmol/LCleveland ClinicProtein [Mass/Vol]4.7 g/dL Low6.3 - 8.0 g/dLRea ClinicSodium [Moles/Vol]145 mmol/HKnbu193 - 144 mmol/LCleveland ClinicUrea nitrogen [Mass/Vol]28 mg/dLHigh9 - 24 mg/dLBerger HospitalNo Panel Informationon 28-38-3750Okzfdetjf Study observation (narrative)[facility] Abdomen and Pelvis W contrast [place] 54-71-2286LABAUNXYRL: 1. More conspicuous indeterminate 2.7 x 1.0 [...] any questions regarding this interpretation, please call [phone]. If you are unable to reach us at the number above, please feel free to contact [facility] at [phone].DIVISION OF RADIOLOGY* * *Final Report* * * DATE OF EXAM: Aug 23 2023 10:44AM [facility] 0530 - CT ABD/PEL W [...] chest CT performed will be reported separately. [employer] Maintainer (topogram) images: No additional findings. DIVISION OF RADIOLOGYProvider, [facility] - 08/24/2023 * * *Final Report* * * DATE OF EXAM: Aug 23 2023 10:44AM [facility] 0530 - CT ABD/PEL W [...] chest CT performed will be reported separately. [employer] Maintainer (topogram) images: No additional findings. IMPRESSION IMPRESSION: [...] any questions regarding this interpretation, please call [phone]. If you are unable to reach us at the number above, please feel free to contact [facility] at [phone]. [facility] Abdomen and Pelvis W contrast IVOrdered By: Ccf Provider on 19-41-4650Fysyiloda ClinicCT Chest W contrast [place] 37-31-0074AMAREYEDIF: 1. No evidence of intrathoracic metastases. 2. [...] any questions regarding this interpretation, please call [phone]. If you are unable to reach us at the number above, please feel free to contact [facility] at [phone].DIVISION OF RADIOLOGY* * *Final Report* * * DATE OF EXAM: Aug 23 2023 10:44AM [facility] 0539 - CT CHEST W [...] CT scan report for the abdomen findings. [employer] Maintainer (topogram) images: No additional findings. DIVISION OF RADIOLOGYProvider, [facility] - 08/24/2023 * * *Final Report* * * DATE OF EXAM: Aug 23 2023 10:44AM [facility] 0539 - CT CHEST W [...] CT scan report for the abdomen findings. [employer] Maintainer (topogram) images: No additional findings. IMPRESSION IMPRESSION: [...] any questions regarding this interpretation, please call [phone]. If you are unable to reach us at the number above, please feel free to contact [facility] at [phone]. Berger HospitalNo Panel Informationon 12-22-0669Vosjyuzex Study observation (narrative)[facility] Abdomen and Pelvis W contrast [place] [id number]: 1. New indeterminate 5 mm enhancing focus [...] any questions regarding this interpretation, please call [phone]. If you are unable to reach us at the number above, please feel free to contact [facility] at [phone].DIVISION OF RADIOLOGY* * *Final Report* * * DATE OF EXAM: May 31 2023 10:16AM [facility] 0530 - CT ABD/PEL W [...] chest CT performed will be reported separately. [employer] Maintainer (topogram) images: No additional findings. DIVISION OF RADIOLOGYProvider, [facility] - 06/01/2023 * * *Final Report* * * DATE OF EXAM: May 31 2023 10:16AM [facility] 0530 - CT ABD/PEL W [...] chest CT performed will be reported separately. [employer] Maintainer (topogram) images: No additional findings. IMPRESSION IMPRESSION: [...] any questions regarding this interpretation, please call [phone]. If you are unable to reach us at the number above, please feel free to contact [facility] at [phone]. [facility] Abdomen and Pelvis W contrast IVOrdered By: Ccf Provider on 53-99-3578Vavwkbwdd ClinicCT Chest W contrast [place] 67-14-9104VEGSSHAYUB: 1. No evidence of intrathoracic metastases. 2. [...] any questions regarding this interpretation, please call [phone]. If you are unable to reach us at the number above, please feel free to contact [facility] at [phone].DIVISION OF RADIOLOGY* * *Final Report* * * DATE OF EXAM: May 31 2023 10:16AM [facility] 0539 - CT CHEST W [...] CT scan report for the abdomen findings. [employer] Maintainer (topogram) images: No additional findings. DIVISION OF RADIOLOGYProvider, [facility] - 06/01/2023 * * *Final Report* * * DATE OF EXAM: May 31 2023 10:16AM [facility] 0539 - CT CHEST W [...] CT scan report for the abdomen findings. [employer] Maintainer (topogram) images: No additional findings. IMPRESSION IMPRESSION: [...] any questions regarding this interpretation, please call [phone]. If you are unable to reach us at the number above, please feel free to contact [facility] at [phone]. Berger HospitalNo Panel Informationon 44-98-9792Ogwghxtkr Study observation (narrative)[facility] Hospitalltation Noteon 04-26-2023 Consultation [id number]#1.00CD:[address] [place], [place] [address]BNPon 64-17-7403Kzidhvscgov peptide B (Bld) [Mass/Vol] 1490.0 pg/mLNormal<=1,800.0The [facility] HospitalComment on above:Performed By: #### CK, HSTROPN, CMP, BNP #### [facility] [address] [place] [address] Dr. Tan Villagomez AUTO DIFFon 77-84-0470CXZN #0.1 103/ulNormal0.0-0.1The [facility] HospitalComment on above:Performed By: #### CK, HSTROPN, CMP, BNP #### [facility] [address] [address] [address] Yilan ChangBasophils/100 WBC (Bld)0.9 %Normal0.2-2.0The [facility] Comment on above:Performed By: #### CK, HSTROPN, CMP, BNP #### [facility] [address] [place] [address] Dr. Tan Ram #0.1 103/ulNormal0.0-0.7The [facility] HospitalComment on above: Performed By: #### CK, HSTROPN, CMP, BNP #### [facility] [address] [place] [address] Dr. Tan Sanotsosinophils/100 WBC (Bld)1.6 %Normal0.9-7.0The [facility] Comment on above:Performed By: #### CK, HSTROPN, CMP, BNP #### [facility] [address] [place] [address] Dr. Tan Santosrythrocyte distribution width (RBC) [Ratio]14.7 %Dtcnlz70.0-15.0 The [facility] HospitalComment on above:Performed By: #### CK, HSTROPN, CMP, BNP #### [facility] [address] [place] [address] Dr. Tan OliverosHematocrit (Bld) [Volume fraction]38.9 %Critically low42.0-54.0 The [facility] HospitalComment on above:Performed By: #### CK, HSTROPN, CMP, BNP #### [facility] [address] [place] [address] Dr. Tan OliverosHemoglobin (Bld) [Mass/Vol]12.8 g/dLCritically low14.0-18.0The [facility] HospitalComment on above:Performed By: #### CK, HSTROPN, CMP, BNP #### [facility] [address] [place] [address] Dr. Tan OliverosIG #0.02 10e3/ulNormal0.00-0.03The [facility] HospitalComment on above:Performed By: #### CK, HSTROPN, CMP, BNP #### [facility] [address] [address] [address] Tan Panchal %0.3 %Normal0.0-0.5The [facility] HospitalComment on above: Performed By: #### CK, HSTROPN, CMP, BNP #### [facility] [address] [address] [address] Tan Armstrong #0.7 103/ulCritically low1.2-3.8The [facility] Comment on above:Performed By: #### CK, HSTROPN, CMP, BNP #### [facility] [address] [place] [address] Dr. Tan Singleotnhocytes/100 WBC (Bld)10.4 %Critically low20.5-60.0The [facility] HospitalComment on above:Performed By: #### CK, HSTROPN, CMP, BNP #### [facility] [address] [place] [address] Dr. Tan BrizuelaUAL DIFF REQNONormalThe [facility] HospitalComment on above: Performed By: #### CK, HSTROPN, CMP, BNP #### [facility] [address] [place] [address] Dr. Tan Duarte (RBC) [Entitic mass]27.2 owScrbcq82.9-34.0The [facility] HospitalComment on above:Performed By: #### CK, HSTROPN, CMP, BNP #### [facility] [address] [place] [address] Dr. Tan Duarte (RBC) [Mass/Vol]32.9 g/eKWjqyox59.9-35.2The [facility] HospitalComment on above:Performed By: #### CK, HSTROPN, CMP, BNP #### [facility] [address] [place] [address] Dr. Tan Duarte (RBC) [Entitic vol]82.8 vGVlwegn62.0-94.0The [facility] HospitalComment on above:Performed By: #### CK, HSTROPN, CMP, BNP #### [facility] [address] [place] [address] Dr. Tan Torres #0.4 103/ulNormal0.3-0.8The [facility] HospitalComment on above:Performed By: #### CK, HSTROPN, CMP, BNP #### [facility] [address] [place] [address] Dr. Tan Riveraocytes/100 WBC (Bld)5.8 %Normal1.7-12.0The [facility] Comment on above:Performed By: #### CK, HSTROPN, CMP, BNP #### [facility] [address] [place] [address] Dr. Tan Goode #5.2 103/ulNormal1.4-6.5The [facility] HospitalComment on above:Performed By: #### CK, HSTROPN, CMP, BNP #### [facility] [address] [place] [address] Dr. Tan Sullivanutrophils/100 WBC (Bld)81.0 %Critically high43.0-75.0The [facility] HospitalComment on above:Performed By: #### CK, HSTROPN, CMP, BNP #### [facility] [address] [place] [address] Dr. Tan Murray mean volume (Bld) [Entitic vol]9.9 fLNormal9.5-13.5The [facility] HospitalComment on above:Performed By: #### CK, HSTROPN, CMP, BNP #### [facility] [address] [place] [address] Dr. Tan OliverosPLT198 103/jhMpxmss952-849Puk [facility] HospitalComment on above: Performed By: #### CK, HSTROPN, CMP, BNP #### [facility] [address] [place] [address] Dr. Tan OliverosRBC4.70 106/ulNormal4.70-6.10The [facility] HospitalComment on above:Performed By: #### CK, HSTROPN, CMP, BNP #### [facility] [address] [address] [address] Tan OliverosWBC6.4 103/ulNormal4.0-11.0The [facility] HospitalComment on above: Performed By: #### CK, HSTROPN, CMP, BNP #### [facility] [address] [address] [address] Tan Bryant 67-96-2911MR [Catalytic activity/Vol]152 U/QAhvghd94-620Ptf [facility] HospitalComment on above:Performed By: #### CK, HSTROPN, CMP, BNP #### [facility] [address] [address] [address] Tan Tomlin 14(COMP METB)on 10-62-2121Cbjzkaf [Mass/Vol]3.5 g/dLNormal 3.4-5.0The [facility] HospitalComment on above:Performed By: #### CK, HSTROPN, CMP, BNP #### [facility] [address] [place] [address] Dr. Tan OliverosAlbumin/Globulin [Mass ratio]1.2 {ratio}NormalThe [facility]ho[facility] Regional Medical Centerment on above:Performed By: #### CK, HSTROPN, CMP, BNP #### [facility] [address] [place] [address] Dr. Tan Patel [Catalytic activity/Vol]69 U/BZhvtpu41-497Hdh [facility] HospitalComment on above:Performed By: #### CK, HSTROPN, CMP, BNP #### [facility] [address] [place] [address] Dr. Tan Kay [Catalytic activity/Vol]21 U/XJoaicc49-13Tpf [facility] HospitalComment on above:Performed By: #### CK, HSTROPN, CMP, BNP #### [facility] [address] [place] [address] Dr. Tan Montesinos gap [Moles/Vol]14.6 mmol/LNormalThe [facility] Comment on above:Performed By: #### CK, HSTROPN, CMP, BNP #### [facility] [address] [address] [address] Tan OliverosAST [Catalytic activity/Vol]21 U/ZBxbbvz42-07Mnt [facility] HospitalComment on above:Performed By: #### CK, HSTROPN, CMP, BNP #### [facility] [address] [place] [address] Dr. Tan OliverosBilirubin [Mass/Vol]0.5 mg/dLNormal0.2-1.0The [facility] Comment on above:Performed By: #### CK, HSTROPN, CMP, BNP #### [facility] [address] [place] [address] Dr. Tan OliverosCalcium [Mass/Vol]8.7 mg/dLNormal8.5-10.1[facility] Comment on above:Performed By: #### CK, HSTROPN, CMP, BNP #### [facility] [address] [place] [address] Dr. Tan OliverosChloride [Moles/Vol]107 mmol/XBoooul96-671Amo [facility] Comment on above:Performed By: #### CK, HSTROPN, CMP, BNP #### [facility] [address] [place] [address] Dr. Tan OliverosCO2 [Moles/Vol]23.1 mmol/EAjxqxe62.0-32.0[facility] Comment on above:Performed By: #### CK, HSTROPN, CMP, BNP #### [facility] [address] [place] [address] Dr. Tan OliverosCreatinine [Mass/Vol]2.31 mg/dLCritically high0.70-1.30The [facility] HospitalComment on above:Performed By: #### CK, HSTROPN, CMP, BNP #### [facility] [address] [place] [address] Dr. Maddox ChangEGFR-AF UDWEMRSC91 mL/min/1.87s7Xkaoztyrne low>=60The [facility] HospitalComment on above:Performed By: #### CK, HSTROPN, CMP, BNP #### [facility] [address] [address] [address] Tan SantosGFR-NON AF UHXDJCFX48 mL/min/1.98l7Lgmqknoavx low>=60The [facility] HospitalComment on above:Performed By: #### CK, HSTROPN, CMP, BNP #### [facility] [address] [address] [address] Tan OliverosGlobulin (S) [Mass/Vol]2.8 g/dLNormalThe [facility] HospitalComment on above:Performed By: #### CK, HSTROPN, CMP, BNP #### [facility] [address] [address] [address] Tan OliverosGlucose [Mass/Vol]123 mg/dLCritically gmui33-723Fei [facility] HospitalComment on above:Performed By: #### CK, HSTROPN, CMP, BNP #### [facility] [address] [place] [address] Dr. Tan OliverosPotassium [Moles/Vol]4.7 mmol/LNormal3.5-5.1The [facility] Comment on above:Performed By: #### CK, HSTROPN, CMP, BNP #### [facility] [address] [address] [address] Tan OliverosProtein [Mass/Vol]6.3 g/dLCritically low6.4-8.2The [facility] HospitalComment on above:Performed By: #### CK, HSTROPN, CMP, BNP #### [facility] [address] [place] [address] Dr. Tan OliverosSodium [Moles/Vol]140 mmol/VZcebxi650-340Uci [facility] Comment on above:Performed By: #### CK, HSTROPN, CMP, BNP #### [facility] [address] [place] [address] Dr. Tan OliverosUrea nitrogen [Mass/Vol]39.0 mg/dLCritically high7.0-18.0The [facility] HospitalComment on above:Performed By: #### CK, HSTROPN, CMP, BNP #### [facility] [address] [place], [place] [address] Dr. Tan OliverosUrea nitrogen/Creatinine [Mass ratio]16.9 mg/mgNoAultman HospitalComfresenius medical care [facility] on above:Performed By: #### CK, HSTROPN, CMP, BNP #### [facility] [address] [place], [place] [address] Dr. Tan JosephOPODIMA, HIGH SENSITIVITYon 28-91-1803WASZFP14.5 pg/mLNormal 4.0-76.1The [facility] HospitalComfresenius [facility] on above:Result Comment: CUT-OFF POINTS HAVE BEEN ESTABLISHED BASED ON THE FOURTH UNIVERSAL DEFINITIONS OF MYOCARDIAL INFARCTION. THE UPPER REFERENCE LIMIT (URL) OF TROPONIN, DEFINED THE 99TH PERCENTILE OF cTnI DISTRIBUTION IN A REFERENCE POPULATION, HAS BEEN CONFIRMED THE DECISION THRESHOLD FOR ID DIAGNOSIS.Performed By: #### CK, HSTROPN, CMP, BNP #### [facility] [address] [address] [address] Tan OliverosXR CHEST 2 Von 51-09-6134PU CHEST 2 VEXAM: XR CHEST 2 V HISTORY: SHORTNESS OF BREATH COMPARISON: 12/08/2022 TECHNIQUE: Chest X-ray, 2 views FINDINGS: Support devices: None. Lungs/pleura: No consolidation, effusion, or pneumothorax. Heart and mediastinum: Normal contours. Bones: No acute abnormality identified. Impression: No radiographic evidence of acute cardiopulmonary process. Electronically authenticated by: MIKE MARTÍNEZ Date: 2023-03-10 11:51Tuscarawas HospitalConsultation Noteon 24-46-5113Sdcsnaheztnr Note [id number]#1.00CD:127NoalRegency Hospital ToledoCT Chest WO contraston 73-21-5593NWRPOSPXDK: 1. Since 11/15/2022, resolution of bibasilar pleural [...] any questions regarding this interpretation, please call [phone]. If you are unable to reach us at the number above, please feel free to contact [facility] at [phone].DIVISION OF RADIOLOGY* * *Final Report* * * DATE OF EXAM: Jan 23 2023 3:11PM [facility] 0541 - CT CHEST WO [...] a few nonspecific noncalcified pulmonary nodules, with sales development representative examples detailed as follows on series [...] the right adrenal. Status post left nephrectomy. Telegraph Plant Maintainer (topogram) images: No additional findings. DIVISION OF RADIOLOGYProvider, [facility] - 01/23/2023 * * *Final Report* * * DATE OF EXAM: Jan 23 2023 3:11PM [facility] 0541 - CT CHEST WO [...] a few nonspecific noncalcified pulmonary nodules, with sales development representative examples detailed as follows on series [...] the right adrenal. Status post left nephrectomy. [employer] Plant Maintainer (topogram) images: No additional findings. IMPRESSION IMPRESSION: [...] any questions regarding this interpretation, please call [phone]. If you are unable to reach us at the number above, please feel free to contact [facility] at [phone]. [facility] MemorialRad[facility] Study observation (narrative)[facility] Chest WO contrastOrdered By: Ccf Provider on 53-74-2219Jemibpfxj ClinicECHOCARDIO M/2D COMPLETEon [id number] M/2D COMPLETEPatient: JUAN JOSE AUSTINFloyd Exam Date: 01/11/2023 : 1940 Gender:M Ordering : DR SERGIO SNEED . Admission #: [id number] Family : DR KEVEN CASTANEDA M.D. Order #: [id number] CLICK HERE TO VIEW EXAM ECHOCARDIOGRAM REPORT [...] by: Brandie Michel M.D. on 01/11/2023 at 15:32Tuscarawas HospitalConsent for Procedure/Surgeryon 11-69-2040Ulibcwr for Procedure/Surgery [id number]#1.00CD:127[facility] HospitalUrology Office/Clinic Noteon 15-42-6740Pudmcpg Office/Clinic NoteHPI Staff Cystoscopy with right stent [...] [facility] [address], [place] [address]- Additional Instructions: PRN Patient Education I, Marisabel [...] 1 tab(s), O (more content not included)...Normal [facility] Hospital ToledoComment on above:Result Comment: Electronically Signed By: Jian RODRIGUEZ MD\.br\Date and Time Signed: 12/18/22 12:13 EST\.br\Electronically Co-Signed By: Marisabel Reeves.br\Date and Time Co- Signed: 12/18/22 12:12 ESTCBC AUTO DIFFon 73-34-8745NFPL #0.1 103/ulNormal 0.0-0.1The [facility] HospitalComment on above:Performed By: #### CK, HSTROPN, CMP, BNP #### [facility] [address] [address] [address] Tan OliverosBasophils/100 WBC (Bld)0.9 %Normal0.2-2.0The [facility] Comment on above:Performed By: #### CK, HSTROPN, CMP, BNP #### [facility] [address] [place] [address] Dr. Tan SantosO #0.2 103/ulNormal0.0-0.7The [facility] HospitalComment on above: Performed By: #### CK, HSTROPN, CMP, BNP #### [facility] [address] [place] [address] Dr. Tan Santososinophils/100 WBC (Bld)3.7 %Normal0.9-7.0The [facility] Comment on above:Performed By: #### CK, HSTROPN, CMP, BNP #### [facility] [address] [place] [address] Dr. Tan Santosrythrocyte distribution width (RBC) [Ratio]17.1 %Critically high 11.0-15.0The [facility] HospitalComment on above:Performed By: #### CK, HSTROPN, CMP, BNP #### [facility] [address] [place] [address] Dr. Tan OliverosHematocrit (Bld) [Volume fraction]38.5 %Critically low42.0-54.0 The [facility] HospitalComment on above:Performed By: #### CK, HSTROPN, CMP, BNP #### [facility] [address] [place] [address] Dr. Tan OliversoHemoglobin (Bld) [Mass/Vol]12.7 g/dLCritically low14.0-18.0The [facility] HospitalComment on above:Performed By: #### CK, HSTROPN, CMP, BNP #### [facility] [address] [place] [address] Dr. Tan OliverosIG #0.02 10e3/ulNormal0.00-0.03The [facility] HospitalComment on above:Performed By: #### CK, HSTROPN, CMP, BNP #### [facility] [address] [address] [address] Tan Panchal %0.4 %Normal0.0-0.5The [facility] HospitalComment on above: Performed By: #### CK, HSTROPN, CMP, BNP #### [facility] [address] [address] [address] Tan Armstrong #0.7 103/ulCritically low1.2-3.8The [facility] Comment on above:Performed By: #### CK, HSTROPN, CMP, BNP #### [facility] [address] [address] [address] Tan Singletonhocytes/100 WBC (Bld)12.3 %Critically low20.5-60.0The [facility] HospitalComment on above:Performed By: #### CK, HSTROPN, CMP, BNP #### [facility] [address] [address] [address] Tan BrizuelaUAL DIFF REQNONormalThe [facility] HospitalComment on above: Performed By: #### CK, HSTROPN, CMP, BNP #### [facility] [address] [place] [address] Dr. Tan Duarte (RBC) [Entitic mass]26.1 leTjpizj94.9-34.0The [facility] HospitalComment on above:Performed By: #### CK, HSTROPN, CMP, BNP #### [facility] [address] [place] [address] Dr. Tan Duarte (RBC) [Mass/Vol]33.0 g/kBFehiba42.9-35.2The [facility] HospitalComment on above:Performed By: #### CK, HSTROPN, CMP, BNP #### [facility] [address] [place] [address] Dr. Tan Duarte (RBC) [Entitic vol]79.2 fLCritically low80.0-94.0The [facility] HospitalComment on above:Performed By: #### CK, HSTROPN, CMP, BNP #### [facility] [address] [address] [address] Tan Torres #0.4 103/ulNormal0.3-0.8The [facility] HospitalComment on above:Performed By: #### CK, HSTROPN, CMP, BNP #### [facility] [address] [address] [address] Tan Riveraocytes/100 WBC (Bld)6.5 %Normal1.7-12.0The [facility] Comment on above:Performed By: #### CK, HSTROPN, CMP, BNP #### [facility] [address] [place] [address] Dr. Tan Goode #4.3 103/ulNormal1.4-6.5The [facility] HospitalComment on above:Performed By: #### CK, HSTROPN, CMP, BNP #### [facility] [address] [place] [address] Dr. Tan Cardosoophils/100 WBC (Bld)76.2 %Critically high43.0-75.0The [facility] HospitalComment on above:Performed By: #### CK, HSTROPN, CMP, BNP #### [facility] [address] [place] [address] Dr. Tan Mruray mean volume (Bld) [Entitic vol]9.7 fLNormal9.5-13.5The [facility] HospitalComment on above:Performed By: #### CK, HSTROPN, CMP, BNP #### [facility] [address] [place] [address] Dr. Tan OliverosPLT199 103/coFujufa546-214Wwv [facility] HospitalComment on above: Performed By: #### CK, HSTROPN, CMP, BNP #### [facility] [address] [place] [address] Dr. Tan OliverosRBC4.86 106/ulNormal4.70-6.10The [facility] HospitalComment on above:Performed By: #### CK, HSTROPN, CMP, BNP #### [facility] [address] [place] [address] Dr. Tan OliverosWCHANTEL5.7 103/ulNormal4.0-11.0The [facility] HospitalComment on above: Performed By: #### CK, HSTROPN, CMP, BNP #### [facility] [address] [place] [address] Dr. Tan OliverosCULTURE URINEon 05-04-7301DHTRJXO URINECulture Observations: NO GROWTH.NormalLouis Stokes Cleveland Va Medical CenterComment on above:Performed By: #### CK, HSTROPN, CMP, BNP #### [facility] [address] [place] [address] Dr. Tan Mackay URINE PROFILEon 27-12-5065Heaflilrj Ql (U)NegativeNormal NEGATIVEThe [facility] HospitalComment on above:Performed By: #### CK, HSTROPN, CMP, BNP #### [facility] [address] [place] [address] Dr. Tan OliverosClarity (U)CLEARNormalCLEARThe [facility] HospitalComment on above: Performed By: #### CK, HSTROPN, CMP, BNP #### [facility] [address] [place] [address] Dr. Tan Spencer (U)LT. YELLOWNormalYELLOWLouis Stokes Cleveland Va Medical CenterComment on above:Performed By: #### CK, HSTROPN, CMP, BNP #### [facility] [address] [place] [address] Dr. Tan Holm micrscopic examination will be performed if indicated. NormalLouis Stokes Cleveland Va Medical CenterComment on above:Performed By: #### CK, HSTROPN, CMP, BNP #### [facility] [address] [place] [address] Dr. Tan OliverosGlucose Ql (U)NegativeNormalNEGATIVEThe [facility] HospitalComment on above:Performed By: #### CK, HSTROPN, CMP, BNP #### [facility] [address] [address] [address] Tan OliverosHemoglobin Ql (U)LARGEAbnormalNEGATIVELouis Stokes Cleveland Va Medical Center Comment on above:Performed By: #### CK, HSTROPN, CMP, BNP #### [facility] [address] [address] [address] Tan Stallingsones Ql (U)NegativeNormalNEGATIVELouis Stokes Cleveland Va Medical CenterComment on above:Performed By: #### CK, HSTROPN, CMP, BNP #### [facility] [address] [address] [address] Tan MattsonOCYTESSMALLAbnormalNEGATIVELouis Stokes Cleveland Va Medical CenterComment on above:Performed By: #### CK, HSTROPN, CMP, BNP #### [facility] [address] [place] [address] Dr. Tan Mendeztrite Ql (U)NegativeNormalNEGATIVELouis Stokes Cleveland Va Medical CenterComment on above:Performed By: #### CK, HSTROPN, CMP, BNP #### [facility] [address] [address] [address] Tan OliverospH (U)6.0 [pH]Normal5-9Louis Stokes [facility] Va Medical CenterComment on above: Performed By: #### CK, HSTROPN, CMP, BNP #### [facility] [address] [place] [address] Dr. Tan OliverosSPEC GRAVITY1.888Ufepho9.005-<=1.025The [facility] HospitalComment on above:Performed By: #### CK, HSTROPN, CMP, BNP #### [facility] [address] [place] [address] Dr. Tan OliverosUA PROTEINNegativeNormalNEGATIVE/ TRACEThe [facility] Comment on above:Performed By: #### CK, HSTROPN, CMP, BNP #### [facility] [address] [address] [address] Tan Mejia MICRO INDINDICATEDNormalThe [facility] HospitalComment on above: Performed By: #### CK, HSTROPN, CMP, BNP #### [facility] [address] [address] [address] Tan Barretobilryley Qn (U)0.2 {Maged'U}/dLNormal0.2 - 1.0The [facility] HospitalComment on above:Performed By: #### CK, HSTROPN, CMP, BNP #### [facility] [address] [address] [address] Tan OliverosPOINT OF CARE GLUCOSEon 55-96-2985Dlwisfb [Mass/Vol]114 mg/dL Critically xlrw50-207Bec [facility] HospitalComment on above:Performed By: #### CK, HSTROPN, CMP, BNP #### [facility] [address] [address] [address] Tan NickF CHEM 8 (BAS METB)on 40-53-7943Xhuei gap [Moles/Vol]13.2 mmol/LNormalThe [facility] HospitalComment on above:Performed By: #### HSTROPN, BMP #### [facility] [address] [address] [address] Tan OliverosCalcium [Mass/Vol]8.9 mg/dLNormal8.5-10.1[facility] Comment on above:Performed By: #### HSTROPN, BMP #### [facility] [address] [address] [address] Tan OliverosChloride [Moles/Vol]104 mmol/IAmmzwt96-511Siz [facility] Comment on above:Performed By: #### HSTROPN, BMP #### [facility] [address] [address] [address] Tan OliverosCO2 [Moles/Vol]27.1 mmol/SYhjzrh38.0-32.0[facility] Comment on above:Performed By: #### HSTROPN, BMP #### [facility] [address] [address] [address] Tan OliverosCreatinine [Mass/Vol]2.11 mg/dLCritically high0.70-1.30The [place] HospitalComment on above:Performed By: #### HSTROPN, BMP #### [facility] [address] [address] [address] Tan SantosGFR-AF DMLMFVNM63 mL/min/1.66e1Myueixpzns low>=60The [facility] HospitalComment on above:Performed By: #### HSTROPN, BMP #### [facility] [address] [address] [address] Tan SantosGFR-NON AF XEYNZVSS37 mL/min/1.65q2Jcuogtgjex low>=60The [facility] HospitalComment on above:Performed By: #### HSTROPN, BMP #### [facility] [address] [place] [address] Dr. Tan OliverosGlucose [Mass/Vol]107 mg/dLCritically pqaf74-797Fsd [facility] HospitalComment on above:Performed By: #### HSTROPN, BMP #### [facility] [address] [place] [address] Dr. Tan OliverosPotassium [Moles/Vol]4.3 mmol/LNormal3.5-5.1[facility] Comment on above:Performed By: #### HSTROPN, BMP #### [facility] [address] [place] [address] Dr. Tan Duartedium [Moles/Vol]140 mmol/WLlyszt762-141ShuLouis Stokes Cleveland Va Medical Center Comment on above:Performed By: #### HSTROPN, BMP #### [facility] [address] [place] [address] Dr. Tan OliverosUrea nitrogen [Mass/Vol]32.0 mg/dLCritically high7.0-18.0The [facility] HospitalComment on above:Performed By: #### HSTROPN, BMP #### [facility] [address] [place] [address] Dr. Tan Regan nitrogen/Creatinine [Mass ratio]15.2 mg/mgNormalThe [facility] HospitalComment on above:Performed By: #### HSTROPN, BMP #### [facility] [address] [place] [address] Dr. Tan Castañeda, HIGH SENSITIVITYon 24-00-3873NRCELV27.6 pg/mLNormal 4.0-76.1The [facility] on above:Result Comment: CUT-OFF POINTS HAVE BEEN ESTABLISHED BASED ON THE FOURTH UNIVERSAL DEFINITIONS OF MYOCARDIAL INFARCTION. THE UPPER REFERENCE LIMIT (URL) OF TROPONIN, DEFINED THE 99TH PERCENTILE OF cTnI DISTRIBUTION IN A REFERENCE POPULATION, HAS BEEN CONFIRMED THE DECISION THRESHOLD FOR ID DIAGNOSIS.Performed By: #### HSTROPN, BMP #### [facility] [address] [place] [address] Dr. Tan Alvarado MICROSCOPIC ONLYon 77-09-5637WMRSQNCWMZDXITourmihuTSUF SEEN [facility] CenterComfresenius [facility] on above:Performed By: #### CK, HSTROPN, CMP, BNP #### [facility] [address] [place] [address] Dr. Tan Hoff identified Cx Nom (U)INDICATEDNoalThCity HospitalComfresenius medical care [facility] on above:Performed By: #### CK, HSTROPN, CMP, BNP #### [facility] [address] [place] [address] Dr. Tan Hinkle SEENNormalNONE SEENAccess Hospital Dayton on above:Performed By: #### CK, HSTROPN, CMP, BNP #### [facility] [address] [place] [address] Dr. Tan Yo LM Nom (Urine sed)NONE SEENNormalNONE SEENAccess Hospital [place] on above:Performed By: #### CK, HSTROPN, CMP, BNP #### [facility] [address] [place] [address] Dr. Maddox ChangEpithelial cells LM Ql (Urine sed)RARENormalNONE SEEN /RAREAccess Hospital [place] on above:Performed By: #### CK, HSTROPN, CMP, BNP #### [facility] [address] [place] [address] Dr. Tan OliverosCOUSRENNY SEENNormalNONE SEENThe [place] HospitalComment on above:Performed By: #### CK, HSTROPN, CMP, BNP #### [facility] [address] [address] [address] Tan OliverosEqhghQND85-64Iponkzpi3-6Gnn [facility] on above: Performed By: #### CK, HSTROPN, CMP, BNP #### [facility] [address] [address] [address] Tan OliverosWBC2-5AbnormalNONE SEENThe [facility] HospitalComment on above: Performed By: #### CK, HSTROPN, CMP, BNP #### [facility] [address] [address] [address] Tan OliverosXR CHEST 1 Von 60-57-8013CK CHEST 1 VEXAM: XR CHEST 1 V HISTORY: SHORTNESS OF BREATH COMPARISON: 02/26/2022 TECHNIQUE: Single view of the FINDINGS: Heart size normal. No focal consolidation, pleural effusion, pulmonary congestion or pneumothorax. IMPRESSION: No acute findings. Electronically authenticated by: AUGUSTINA JAMES Date: 2022-12-08 12:54[facility] [id number] [id number]#1.00CD:127[facility] HospitalAmbulatory Visit Summaryon 06-45-1888Chowkciitu Visit Summary JUAN JOSE AUSTIN Shirley :1940 Visit Date:12/05/2022 Ambulatory Visit Instructions Your Diagnosis Enlarged prostate with urinary obstruction Bladder cancer Cancer of kidney Gross hematuria Other obstructive and reflux uropathy Tests Performed Urnls Dip Stick Auto w/o Microscopy POC 99827 Your Care Team Attending Physician - JENNIFER [...] Urology [address], [place] [address]- Medications What How Much When Instructions Unchanged [...] Urnls Dip Stick Auto w/o Microscopy POC 55990 (12/05/2022) Bilirubin Urine Dipstick - Negative Blood Urine Dipstick - 3+ Large Glucose Urine Dipstick - 1+ 250 mg/dl Ketones Urine Dipstick - Negative Leukocytes Urine Dipstick - 1+ Small Nitrite Urine Dipstick - Negative Protein Urine Dipstick - Trace Specific Savage Urine Dipstick - 1.020 Urine Appearance Urine [...] following factors may make (more content not included)...[facility] HospitalPatient Educationon 18-35-1043Azhccrv EducationOncology Bladder Cancer Bladder cancer is an [...] Follow these instructions at home: ? Take cyxh-zww-ctodwqa and prescription medicines only as told by [...] important. Where to find more information ? [employer]: www.cancer.org ? National [employer] (NCI): www.cancer.gov Contact a health care provider [...] 10/02/2004 Document Revised: 09/12/2018 Document Reviewed: 09/03/2017 [employer] Patient Education ? 2019 [employer].[facility]rology Office/Clinic Noteon 78-85-7516Ppfquwc Office/Clinic NoteChief Complaint Follow up to stent [...] [facility] [address], [place] [address]- Additional Instructions: Patient Education Bladder Cancer I, [...] urinary obstruction Gross hematuria (more content not included)...[facility] Comment on above:Result Comment: Electronically Signed By: Jian RODRIGUEZ MD.br\Date and Time Signed: 12/05/22 10:43 EST\.br\Electronically Co-Signed By: Priya Moodybr\Date and Time Co-Signed: 12/05/22 10:40 ESTConsultation Noteon 81-93-1105Uoovepofhort Note [id number]#1.00CD:127NormWood County HospitalCB AUTO DIFFon 38-53-8779TWHC #0.1 103/ulNormal0.0-0.1The [facility] HospitalComment on above:Performed By: #### CK, HSTROPN, CMP, BNP #### [facility] [address] [place] [address] Dr. Tan OliverosBasophils/100 WBC (Bld)0.7 %Normal0.2-2.0The [facility] Comment on above:Performed By: #### CK, HSTROPN, CMP, BNP #### [facility] [address] [address] [address] Tan Ram #0.2 103/ulNormal0.0-0.7The [facility] HospitalComment on above: Performed By: #### CK, HSTROPN, CMP, BNP #### [facility] [address] [address] [address] Tan Santososinophils/100 WBC (Bld)2.6 %Normal0.9-7.0The [facility] Comment on above:Performed By: #### CK, HSTROPN, CMP, BNP #### [facility] [address] [address] [address] Tan Santosrythrocyte distribution width (RBC) [Ratio]17.2 %Critically high 11.0-15.0The [facility] HospitalComment on above:Performed By: #### CK, HSTROPN, CMP, BNP #### [facility] [address] [place] [address] Dr. Tan OliverosHematocrit (Bld) [Volume fraction]43.8 %Pobsct14.0-54.0The [facility] HospitalComment on above:Performed By: #### CK, HSTROPN, CMP, BNP #### [facility] [address] [place] [address] Dr. Tan OliverosHemoglobin (Bld) [Mass/Vol]14.4 g/yEFejozz65.0-18.0The [place] HospitalComment on above:Performed By: #### CK, HSTROPN, CMP, BNP #### [facility] [address] [place] [address] Dr. Tan Pancahl #0.01 10e3/ulNormal0.00-0.03The [facility] HospitalComment on above:Performed By: #### CK, HSTROPN, CMP, BNP #### [facility] [address] [place] [address] Dr. Tan Panchal %0.1 %Normal0.0-0.5The [facility] HospitalComment on above: Performed By: #### CK, HSTROPN, CMP, BNP #### [facility] [address] [place] [address] Dr. Tan Armstrong #1.3 103/ulNormal1.2-3.8The [facility] HospitalComment on above:Performed By: #### CK, HSTROPN, CMP, BNP #### [facility] [address] [place] [address] Dr. Tan Singletonhocytes/100 WBC (Bld)18.4 %Critically low20.5-60.0The [facility] HospitalComment on above:Performed By: #### CK, HSTROPN, CMP, BNP #### [facility] [address] [place] [address] Dr. Tan BrizuelaUAL DIFF REQNONormalThe [facility] HospitalComment on above: Performed By: #### CK, HSTROPN, CMP, BNP #### [facility] [address] [place] [address] Dr. Tan Altman (RBC) [Entitic mass]25.0 pgCritically low25.9-34.0The [facility] HospitalComment on above:Performed By: #### CK, HSTROPN, CMP, BNP #### [facility] [address] [place] [address] Dr. Tan Duarte (RBC) [Mass/Vol]32.9 g/fJZslzbk24.9-35.2The [place] HospitalComment on above:Performed By: #### CK, HSTROPN, CMP, BNP #### [facility] [address] [place] [address] Dr. Tan Duarte (RBC) [Entitic vol]75.9 fLCritically low80.0-94.0The [facility] HospitalComment on above:Performed By: #### CK, HSTROPN, CMP, BNP #### [facility] [address] [place] [address] Dr. Tan Torres #0.5 103/ulNormal0.3-0.8The [facility] HospitalComment on above:Performed By: #### CK, HSTROPN, CMP, BNP #### [facility] [address] [place] [address] Dr. Tan Riveraocytes/100 WBC (Bld)7.1 %Normal1.7-12.0The [facility] Comment on above:Performed By: #### CK, HSTROPN, CMP, BNP #### [facility] [address] [place] [address] Dr. Tan Goode #5.1 103/ulNormal1.4-6.5The [facility] HospitalComment on above:Performed By: #### CK, HSTROPN, CMP, BNP #### [facility] [address] [place] [address] Dr. Tan Sullivanutrophils/100 WBC (Bld)71.1 %Jehpzy83.0-75.0The [facility] HospitalComment on above:Performed By: #### CK, HSTROPN, CMP, BNP #### [facility] [address] [place] [address] Dr. Tan Murray mean volume (Bld) [Entitic vol]9.3 fLCritically low 9.5-13.5The [facility] HospitalComment on above:Performed By: #### CK, HSTROPN, CMP, BNP #### [facility] [address] [place] [address] Dr. Tan OliverosPLT209 103/fxIvpxkm736-927Qnb [facility] HospitalComment on above: Performed By: #### CK, HSTROPN, CMP, BNP #### [facility] [address] [place] [address] Dr. Tan OliverosRBC5.77 106/ulNormal4.70-6.10The [facility] HospitalComment on above:Performed By: #### CK, HSTROPN, CMP, BNP #### [facility] [address] [place] [address] Dr. Tan OliverosWBC7.2 103/ulNormal4.0-11.0The [facility] HospitalComment on above: Performed By: #### CK, HSTROPN, CMP, BNP #### [facility] [address] [place] [address] Dr. Tan Perez URINEon 58-29-2233SRFRGCE URINECulture Observations: NO GROWTH.NormalThe [facility] HospitalComment on above:Performed By: #### CK, HSTROPN, CMP, BNP #### [facility] [address] [place] [address] Dr. Tan Mackay URINE PROFILEon 24-94-7079Sokdbqshm Ql (U)Unable to perform testing due to color interference.AbnormalNEGATIVEThe [facility] HospitalComment on above:Performed By: #### CK, HSTROPN, CMP, BNP #### [facility] [address] [place] [address] Dr. Tan OliverosClmaria ines (U)CLEARNormalCLEARThe [facility] HospitalComment on above: Performed By: #### CK, HSTROPN, CMP, BNP #### [facility] [address] [place] [address] Dr. Tan Spencer (U)REDAbnormalYELLOWUk Healthcare HospitalComment on above: Performed By: #### CK, HSTROPN, CMP, BNP #### [facility] [address] [address] [address] Tan Holm micrscopic examination will be performed if indicated. NormalThe [place] HospitalComment on above:Performed By: #### CK, HSTROPN, CMP, BNP #### [facility] [address] [address] [address] Tan OliverosGlucose Ql (U)Unable to perform testing due to color interference.AbnormalNEGATIVEUk Healthcare HospitalComment on above:Performed By: #### CK, HSTROPN, CMP, BNP #### [facility] [address] [address] [address] Tan OliverosHemoglobin Ql (U)Unable to perform testing due to color interference.AbnormalNEGATIVEUk Healthcare HospitalComment on above:Performed By: #### CK, HSTROPN, CMP, BNP #### [facility] [address] [address] [address] Tan Troy Ql (U)Unable to perform testing due to color interference.AbnormalNEGATIVEUk Healthcare HospitalComment on above:Performed By: #### CK, HSTROPN, CMP, BNP #### [facility] [address] [place] [address] Dr. Tan Sanchez to perform testing due to color interference. AbnormalNEGATIVEUk Healthcare HospitalComment on above:Performed By: #### CK, HSTROPN, CMP, BNP #### [facility] [address] [address] [address] Tan Serranoite Ql (U)Unable to perform testing due to color interference.AbnormalNEGATIVEUk Healthcare HospitalComment on above:Performed By: #### CK, HSTROPN, CMP, BNP #### [facility] [address] [address] [address] Tan Triplett to perform testing due to color interference.Abnormal5-9 The [place] HospitalComment on above:Performed By: #### CK, HSTROPN, CMP, BNP #### [facility] [address] [address] [address] Tan OliverosSPEC GRAVITY<=1.109Hheexmoj8.005-<=1.025The [facility] Comment on above:Performed By: #### CK, HSTROPN, CMP, BNP #### [facility] [address] [place] [address] Dr. Tan Yang PROTEINUnadenisa to perform testing due to color interference. NormalNEGATIVE/ TRACEThe [facility] HospitalComment on above:Performed By: #### CK, HSTROPN, CMP, BNP #### [facility] [address] [place] [address] Dr. Tan Mejia MICRO INDINDICATEDNormalThe [facility] HospitalComment on above: Performed By: #### CK, HSTROPN, CMP, BNP #### [facility] [address] [place] [address] Dr. Tan BarretoBILINOGENCarmelita to perform testing due to color interference. Normal0.2 - 1.0The [facility] HospitalComment on above:Performed By: #### CK, HSTROPN, CMP, BNP #### [facility] [address] [place] [address] Dr. Tan OliverosPROF 14(COMP METB)on 42-37-4763Hctjlcz [Mass/Vol]3.8 g/dLNormal 3.4-5.0The [facility] HospitalComment on above:Performed By: #### CK, HSTROPN, CMP, BNP #### [facility] [address] [place] [address] Dr. Tan OliverosAlbumin/Globulin [Mass ratio]1.3 {ratio}NormalThe [facility] on above:Performed By: #### CK, HSTROPN, CMP, BNP #### [facility] [address] [place] [address] Dr. Tan CrowderP [Catalytic activity/Vol]81 U/ENgmllw94-248Ztu [facility] HospitalComment on above:Performed By: #### CK, HSTROPN, CMP, BNP #### [facility] [address] [address] [address] Tan Kay [Catalytic activity/Vol]20 U/QOxqwtn51-77Cmf [facility] HospitalComment on above:Performed By: #### CK, HSTROPN, CMP, BNP #### [facility] [address] [address] [address] Tan Camachoon gap [Moles/Vol]14.3 mmol/LNormalThe [facility] Comment on above:Performed By: #### CK, HSTROPN, CMP, BNP #### [facility] [address] [place] [address] Dr. Tan Dawson [Catalytic activity/Vol]26 U/DNfgqeq68-72Ibz [facility] HospitalComment on above:Performed By: #### CK, HSTROPN, CMP, BNP #### [facility] [address] [place] [address] Dr. Tan OliverosBilirubin [Mass/Vol]0.7 mg/dLNormal0.2-1.0[facility] Comment on above:Performed By: #### CK, HSTROPN, CMP, BNP #### [facility] [address] [place] [address] Dr. Tan OliverosCalcium [Mass/Vol]8.9 mg/dLNormal8.5-10.1[facility] Comment on above:Performed By: #### CK, HSTROPN, CMP, BNP #### [facility] [address] [place] [address] Dr. Tan OliverosChloride [Moles/Vol]101 mmol/YLcsepb16-286SuyLouis Stokes [facility] Center Comment on above:Performed By: #### CK, HSTROPN, CMP, BNP #### [facility] [address] [place] [address] Dr. Tan OliverosCO2 [Moles/Vol]27.9 mmol/JQcplrd18.0-32.0[facility] Comment on above:Performed By: #### CK, HSTROPN, CMP, BNP #### [facility] [address] [place] [address] Dr. Tan OliverosCreatinine [Mass/Vol]1.85 mg/dLCritically high0.70-1.30The [facility] HospitalComment on above:Performed By: #### CK, HSTROPN, CMP, BNP #### [facility] [address] [place] [address] Dr. Maddox ChangEGFR-AF YABXRIQU19 mL/min/1.32q2Ouruiqmewc low>=60The [facility] HospitalComment on above:Performed By: #### CK, HSTROPN, CMP, BNP #### [facility] [address] [place] [address] Dr. Tan SantosGFR-NON AF ZALFEVVF64 mL/min/1.18a6Pnyqzfgdkm low>=60The [facility] HospitalComment on above:Performed By: #### CK, HSTROPN, CMP, BNP #### [facility] [address] [place] [address] Dr. Tan OliverosGlobulin (S) [Mass/Vol]3.0 g/dLNormalThe [facility] HospitalComment on above:Performed By: #### CK, HSTROPN, CMP, BNP #### [facility] [address] [place] [address] Dr. Tan OliverosGlucose [Mass/Vol]114 mg/dLCritically swfb15-990Bbq [facility] on above:Performed By: #### CK, HSTROPN, CMP, BNP #### [facility] [address] [place] [address] Dr. Tan OliverosPotassium [Moles/Vol]4.2 mmol/LNormal3.5-5.1[facility] Comment on above:Performed By: #### CK, HSTROPN, CMP, BNP #### [facility] [address] [place] [address] Dr. Tan OliverosProtein [Mass/Vol]6.8 g/dLNormal6.4-8.2The [facility] Comment on above:Performed By: #### CK, HSTROPN, CMP, BNP #### [facility] [address] [address] [address] Tan Leonardum [Moles/Vol]139 mmol/CLfgspx676-599Nwg [facility] Comment on above:Performed By: #### CK, HSTROPN, CMP, BNP #### [facility] [address] [address] [address] Tan Regan nitrogen [Mass/Vol]27.0 mg/dLCritically high7.0-18.0The [facility] HospitalComment on above:Performed By: #### CK, HSTROPN, CMP, BNP #### [facility] [facility] [address] [place] [address] Dr. Tan Regan nitrogen/Creatinine [Mass ratio]14.6 mg/mgNoAultman HospitalComment on above:Performed By: #### CK, HSTROPN, CMP, BNP #### [facility] [address] [place] [address] Dr. Tan Wells [phone] Coag (PPP) [Relative time]0.99 {INR} NormalLouis Stokes Cleveland Va Medical CenterComment on above:Performed By: #### CK, HSTROPN, CMP, BNP #### [facility] [address] [place] [address] Dr. Tan Muller GUIDELINESSEE BELOWTuscarawas HospitalComment on above:Result Comment: DESIRED INR: 2.0 - 3.0 CONDITIONS NOT LISTED BELOW 2.5 - 3.5 FOR PROSTHETIC HEART VALVE REPLACEMENT 2.5 - 3.5 RECURRENT THROMBOSIS Performed By: #### CK, HSTROPN, CMP, BNP #### [facility] [address] [place] [address] Dr. Tan Porter Coag (PPP) [Time]10.5 sNormal9.0-11.6[facility] Comment on above:Performed By: #### CK, HSTROPN, CMP, BNP #### [facility] [address] [place] [address] Dr. Tan Barbosa [phone] Coag (Bld) [Time]28.4 iVaoaud10.3-36.2[facility] on above:Performed By: #### CK, HSTROPN, CMP, BNP #### [facility] [address] [address] [address] Tan TERRAZAS ONLYon [id number]AOQP SEEN [facility] on above:Performed By: #### CK, HSTROPN, CMP, BNP #### [facility] [address] [address] [address] Tan Hoff identified Cx Nom (U)CX ALREADY ORDEREDNoPaulding County Hospital on above:Performed By: #### CK, HSTROPN, CMP, BNP #### [facility] [address] [place] [address] Dr. Tan Hinkle SEENNormalNONE SEENAccess Hospital Dayton on above:Performed By: #### CK, HSTROPN, CMP, BNP #### [facility] [address] [address] [address] Tan Yo LM Nom (Urine sed)NONE SEENNormalNONE SEENAccess Hospital Dayton on above:Performed By: #### CK, HSTROPN, CMP, BNP #### [facility] [address] [address] [address] Maddox ChangEpithelial cells LM Ql (Urine sed)NONE SEENNormalNONE SEEN /RARE [facility] on above:Performed By: #### CK, HSTROPN, CMP, BNP #### [facility] [address] [address] [address] Tan OliverosCOUSNONE SEENNormalNONE SEENAccess Hospital [place] on above:Performed By: #### CK, HSTROPN, CMP, BNP #### [facility] [address] [address] [address] Tan Dodge (U) [#/Vol]/uLAbnormal0-2The [facility] HospitalComment on above:Performed By: #### CK, HSTROPN, CMP, BNP #### [facility] [address] [place] [address] Dr. Tan MuñizBC0-2AbnormalNONE SEENThe [facility] HospitalComment on above: Performed By: #### CK, HSTROPN, CMP, BNP #### [facility] [address] [place] [address] Dr. Tan OliverosINSULINon 52-63-5075Eubtduv79.4 uIU/mLNormal2.6-24.9The [facility] HospitalComment on above:Performed By: #### CK, HSTROPN, CMP, BNP #### [facility] [address] [place] [address] Dr. Tan Cavanaugh [id number] peptide B (Bld) [Mass/Vol]715.0 pg/mL Normal<=1,800.0The [facility] HospitalComment on above:Performed By: #### CK, HSTROPN, CMP, BNP #### [facility] [address] [place] [address] Dr. Tan Villagomez AUTO DIFFon 26-68-0976MFJC #0.0 103/ulNormal0.0-0.1The [facility] HospitalComment on above:Performed By: #### CK, HSTROPN, CMP, BNP #### [facility] [address] [place] [address] Dr. Tan Villasophils/100 WBC (Bld)0.7 %Normal0.2-2.0[facility] Comment on above:Performed By: #### CK, HSTROPN, CMP, BNP #### [facility] [address] [place] [address] Dr. Tan Ram #0.1 103/ulNormal0.0-0.7The [facility] HospitalComment on above: Performed By: #### CK, HSTROPN, CMP, BNP #### [facility] [address] [place], [place] [id number] Dr. Tan Santososinophils/100 WBC (Bld)2.1 %Normal0.9-7.0[facility] Comment on above:Performed By: #### CK, HSTROPN, CMP, BNP #### [facility] [address] [place] [address] Dr. Tan Santosrythrocyte distribution width (RBC) [Ratio]15.9 %Critically high 11.0-15.0The [facility] HospitalComment on above:Performed By: #### CK, HSTROPN, CMP, BNP #### [facility] [address] [place] [address] Dr. Tan OliverosHematocrit (Bld) [Volume fraction]45.1 %Fghknm99.0-54.0The [facility] HospitalComment on above:Performed By: #### CK, HSTROPN, CMP, BNP #### [facility] [address] [place] [address] Dr. Tan OliverosHemoglobin (Bld) [Mass/Vol]14.1 g/gIVdffgb68.0-18.0The [facility] HospitalComment on above:Performed By: #### CK, HSTROPN, CMP, BNP #### [facility] [address] [place] [address] Dr. Tan Panchal #0.02 10e3/ulNormal0.00-0.03The [facility] HospitalComment on above:Performed By: #### CK, HSTROPN, CMP, BNP #### [facility] [address] [place] [address] Dr. Tan Panchal %0.3 %Normal0.0-0.5The [facility] HospitalComment on above: Performed By: #### CK, HSTROPN, CMP, BNP #### [facility] [address] [place] [address] Dr. Tan LuqueMPH #0.7 103/ulCritically low1.2-3.8[facility] Comment on above:Performed By: #### CK, HSTROPN, CMP, BNP #### [facility] [address] [place] [address] Dr. Tan Luquemphocytes/100 WBC (Bld)12.4 %Critically low20.5-60.0The [facility] HospitalComment on above:Performed By: #### CK, HSTROPN, CMP, BNP #### [facility] [address] [place] [address] Dr. Tan BrizuelaUAL DIFF REQNONormalThe [facility] Junction HospitalComment on above: Performed By: #### CK, HSTROPN, CMP, BNP #### [facility] [address] [place] [address] Dr. Tan Duarte (RBC) [Entitic mass]23.7 pgCritically low25.9-34.0The [facility] HospitalComment on above:Performed By: #### CK, HSTROPN, CMP, BNP #### [facility] [address] [place] [address] Dr. Tan Duarte (RBC) [Mass/Vol]31.3 g/zWGtahld32.9-35.2The [facility] HospitalComment on above:Performed By: #### CK, HSTROPN, CMP, BNP #### [facility] [address] [place] [address] Dr. Tan Duarte (RBC) [Entitic vol]75.7 fLCritically low80.0-94.0The [facility] HospitalComment on above:Performed By: #### CK, HSTROPN, CMP, BNP #### [facility] [address] [place] [address] Dr. Tan Torres #0.4 103/ulNormal0.3-0.8The [facility] HospitalComment on above:Performed By: #### CK, HSTROPN, CMP, BNP #### [facility] [address] [place] [address] Dr. Tan Riveraocytes/100 WBC (Bld)6.8 %Normal1.7-12.0[facility] Comment on above:Performed By: #### CK, HSTROPN, CMP, BNP #### [facility] [address] [place] [address] Dr. Tan Goode #4.5 103/ulNormal1.4-6.5The [facility] HospitalComment on above:Performed By: #### CK, HSTROPN, CMP, BNP #### [facility] [address] [place] [address] Dr. Tan Cardosoophils/100 WBC (Bld)77.7 %Critically high43.0-75.0The [facility] HospitalComment on above:Performed By: #### CK, HSTROPN, CMP, BNP #### [facility] [address] [place] [address] Dr. Tan Murray mean volume (Bld) [Entitic vol]9.3 fLCritically low 9.5-13.5The [facility] HospitalComment on above:Performed By: #### CK, HSTROPN, CMP, BNP #### [facility] [address] [place] [address] Dr. Tan OliverosPLT205 103/nxSpwbaq759-216Pbe [facility] HospitalComment on above: Performed By: #### CK, HSTROPN, CMP, BNP #### [facility] [address] [place] [address] Dr. Tan OliverosRBC5.96 106/ulNormal4.70-6.10The [facility] HospitalComment on above:Performed By: #### CK, HSTROPN, CMP, BNP #### [facility] [address] [place] [address] Dr. Tan OliverosWBC5.7 103/ulNormal4.0-11.0The [facility] HospitalComment on above: Performed By: #### CK, HSTROPN, CMP, BNP #### [facility] [address] [place] [address] Dr. Tan Kee THYROXINE INDEX T7on 75-04-7634YSY2.02Skhalf6.30-4.50The [facility] HospitalComment on above:Performed By: #### CK, HSTROPN, CMP, BNP #### [facility] [address] [address] [address] Tan OliverosT3U36.0 %Nwrttd92.0-40.0The [facility] HospitalComment on above: Performed By: #### CK, HSTROPN, CMP, BNP #### [facility] [address] [address] [address] Tan OliverosT4 [Mass/Vol]6.50 ug/dLNormal4.50-12.10The [facility] Comment on above:Performed By: #### CK, HSTROPN, CMP, BNP #### [facility] [address] [place] [address] Dr. Tan OliverosGLYCOHEMOGLOBIN A1Con 93-39-3743LYK RECOMMENDATIONSEE BELOWNormal The [facility] HospitalComment on above:Result Comment: ADA RECOMMENDED LIMIT 4.0 - 6.0 ADA THERAPEUTIC TARGET < 7.0 ACTION SUGGESTED > 7.0Performed By: #### CK, HSTROPN, CMP, BNP #### [facility] [address] [place] [address] Dr. Tan OliverosGlucose [Mass/Vol]114 mg/dLNormalThCity HospitalComment on above:Performed By: #### CK, HSTROPN, CMP, BNP #### [facility] [address] [place] [address] Dr. Tan OliverosHbA1c (Bld) [Mass fraction]5.6 %Normal4.5-6.2The [facility] HospitalComment on above:Performed By: #### CK, HSTROPN, CMP, BNP #### [facility] [address] [place] [address] Dr. Tan Fair 87-08-1476Towz [Mass/Vol]40.0 ug/dLCritically low 65.0-175.0The [facility] HospitalComment on above:Performed By: #### IRON, PSASC, VITAD #### [facility] [address] [place] [address] Dr. Tan OliverosLIPID PROFILEon 28-32-0291PMJY-HDL RATIO NORMSPeoples HospitalComment on above:Result Comment: 3.3 - 4.4 LOW RISK 4.4 - 7.1 AVERAGE RISK 7.1 - 11.0 MODERATE RISK >11.0 HIGH RISKPerformed By: #### BNP, T7, CMP, TSH, LIPID #### [facility] [address] [address] [address] Tan OliverosCholesterol [Mass/Vol]159 mg/dLNormal<=200[facility] Comment on above:Performed By: #### BNP, T7, CMP, TSH, LIPID #### [facility] [address] [address] [address] Tan Pinedaesterol in HDL [Mass/Vol]66 mg/dLCritically kxyd97-21TnqLouis Stokes Cleveland Va Medical CenterComment on above:Performed By: #### BNP, T7, CMP, TSH, LIPID #### [facility] [address] [address] [address] Tan Pinedaesterol in LDL [Mass/Vol]82.4 mg/dLTuscarawas HospitalComment on above:Performed By: #### BNP, T7, CMP, TSH, LIPID #### [facility] [address] [address] [address] Tan Wells.total/Cholesterol in HDL [Mass ratio]2.4 {ratio} NormalLouis Stokes Cleveland Va Medical CenterComment on above:Performed By: #### BNP, T7, CMP, TSH, LIPID #### [facility] [address] [place] [address] Dr. Tan Monroy NORMAL> or = 60 mg/dl - LOW CARDIOVASCULAR RISK <40 mg/dl - HIGH CARDIOVASCULAR RISKTuscarawas HospitalComment on above:Performed By: #### BNP, T7, CMP, TSH, LIPID #### [facility] [address] [place] [address] Dr. Tan OliverosLDL CALC NORMALSEE Toledo HospitalComment on above:Result Comment: <100 mg/dl OPTIMAL 100 - 129 mg/dl NEAR OR ABOVE OPTIMAL 130 - 159 mg/dl BORDERLINE HIGH 160 - 189 mg/dl HIGH >190 mg/dl VERY HIGH Performed By: #### BNP, T7, CMP, TSH, LIPID #### [facility] [address] [address] [address] Tan OliverosTriglyceride [Mass/Vol]53 mg/dLNormal<=150The [facility] Comment on above:Performed By: #### BNP, T7, CMP, TSH, LIPID #### [facility] [address] [address] [address] Tan OliverosVLDL CALC10.6 mg/dLNormalThe [facility] HospitalComment on above: Performed By: #### BNP, T7, CMP, TSH, LIPID #### [facility] [address] [address] [address] Tan OliverosPROCristi 14(COMP METB)on 80-88-4946Ckgqckv [Mass/Vol]3.9 g/dLNormal 3.4-5.0The [facility] HospitalComment on above:Performed By: #### CK, HSTROPN, CMP, BNP #### [facility] [address] [address] [address] Tan OliverosAlbumin/Globulin [Mass ratio]1.2 {ratio}NormalThe [facility] HospitalComment on above:Performed By: #### CK, HSTROPN, CMP, BNP #### [facility] [address] [address] [address] Tan Patel [Catalytic activity/Vol]94 U/SUaguxb61-917Azb [facility] HospitalComment on above:Performed By: #### CK, HSTROPN, CMP, BNP #### [facility] [address] [address] [address] Tan Kay [Catalytic activity/Vol]17 U/WNmqycp91-54Rjv [facility] HospitalComment on above:Performed By: #### CK, HSTROPN, CMP, BNP #### [facility] [address] [address] [address] Tan Montesinos gap [Moles/Vol]12.9 mmol/LNormalThe [facility] Comment on above:Performed By: #### CK, HSTROPN, CMP, BNP #### [facility] [address] [address] [address] Tan OliverosAST [Catalytic activity/Vol]20 U/KCboyuh41-46Yeo [facility] HospitalComment on above:Performed By: #### CK, HSTROPN, CMP, BNP #### [facility] [address] [address] [address] Tan OliverosBilirubin [Mass/Vol]0.4 mg/dLNormal0.2-1.0[facility] Comment on above:Performed By: #### CK, HSTROPN, CMP, BNP #### [facility] [address] [place] [address] Dr. Tan OliverosCalcium [Mass/Vol]9.1 mg/dLNormal8.5-10.1[facility] Comment on above:Performed By: #### CK, HSTROPN, CMP, BNP #### [facility] [address] [place] [address] Dr. Tan OliverosChloride [Moles/Vol]106 mmol/IJmijnk06-296Bco [facility] Comment on above:Performed By: #### CK, HSTROPN, CMP, BNP #### [facility] [address] [place] [address] Dr. Tan OliverosCO2 [Moles/Vol]29.1 mmol/RTloloo62.0-32.0The [facility] Comment on above:Performed By: #### CK, HSTROPN, CMP, BNP #### [facility] [address] [place] [address] Dr. Tan OliverosCreatinine [Mass/Vol]1.98 mg/dLCritically high0.70-1.30The [facility] HospitalComment on above:Performed By: #### CK, HSTROPN, CMP, BNP #### [facility] [address] [place] [address] Dr. Maddox ChangEGFR-AF INQRCBUU61 mL/min/1.61u7Wazdocivyw low>=60The [facility] HospitalComment on above:Performed By: #### CK, HSTROPN, CMP, BNP #### [facility] [address] [place] [address] Dr. Tan SantosGFR-NON AF LUVXYJKY75 mL/min/1.13s5Krfahreott low>=60The [facility] HospitalComment on above:Performed By: #### CK, HSTROPN, CMP, BNP #### [facility] [address] [place] [address] Dr. Tan OliverosGlobulin (S) [Mass/Vol]3.3 g/dLNormalThe [facility] HospitalComment on above:Performed By: #### CK, HSTROPN, CMP, BNP #### [facility] [address] [place] [address] Dr. Tan OliverosGlucose [Mass/Vol]108 mg/dLCritically vyqw46-388Lpm [facility] HospitalComment on above:Performed By: #### CK, HSTROPN, CMP, BNP #### [facility] [address] [place] [address] Dr. Tan OliverosPotassium [Moles/Vol]4.0 mmol/LNormal3.5-5.1The [facility] Comment on above:Performed By: #### CK, HSTROPN, CMP, BNP #### [facility] [address] [place] [address] Dr. Tan OliverosProtein [Mass/Vol]7.2 g/dLNormal6.4-8.2The [facility] Comment on above:Performed By: #### CK, HSTROPN, CMP, BNP #### [facility] [address] [place] [address] Dr. Tan OliverosSodium [Moles/Vol]144 mmol/DIwkahr873-193Fzz [facility] Comment on above:Performed By: #### CK, HSTROPN, CMP, BNP #### [facility] [address] [place] [address] Dr. Tan OliverosUrea nitrogen [Mass/Vol]43.0 mg/dLCritically high7.0-18.0The [facility]iko HospitalComment on above:Performed By: #### CK, HSTROPN, CMP, BNP #### [facility] [address] [place] [address] Dr. Tan OliverosUrea nitrogen/Creatinine [Mass ratio]21.7 mg/mgNoAultman HospitalComfresenius medical [facility] on above:Performed By: #### CK, HSTROPN, CMP, BNP #### [facility] [address] [place] [address] Dr. Tan Mesa 82-21-4058DZZ7.331 uIU/mLNormal0.358-3.740[facility] on above:Performed By: #### CK, HSTROPN, CMP, BNP #### [facility] [address] [place] [address] Dr. Tan OliverosVITAMIN D 25 OHon 30-18-2588QBD D 25-OH40.9 ng/mLNormalAccess Hospital [facility] on above:Performed By: #### IRON, PSASC, VITAD #### [facility] [address] [place] [address] Dr. Tan Petit [facility]ENTERE Toledo HospitalComfresenius [facility] on above: Result Comment: <20 ng/mL Vit D deficient 20 - <30 ng/mL Vit D insufficient 30 - 100 ng/mL Vit D sufficient >100 ng/mL Potential ToxicityPerformed By: #### IRON, PSASC, VITAD #### [facility] [address] [place] [address] Dr. Tan OliverosURINALYSIS, REFLEX MICROSCOPICon 01-73-0372Wulkynemm Ql (U) NegativeNegativeCleveland ClinicClarity (Unsp spec)CloudyAbnormalClearCleveland ClinicColor (U)Light OrangeAbnormalYellowCleveland ClinicGlucose Test strip (U) [Mass/Vol]4+AbnormalNegativeCleveland ClinicHemoglobin Ql (U)3+AbnormalNegative Maldonado ClinicHyaline casts (Urine sed) [#/Area]1-3 /LPFAbnormal0 /LPF [facility]donado ClinicKetones Ql (U)NegativeNegativeCleveland ClinicLeukocyte esterase Test strip Ql (U)NegativeNegativeKettering Health Greene MemorialNitrite Ql (U)NegativeNegative Rea ClinicpH (U)5.5 [pH]5.0 - 8.0Rea ClinicProtein (U) [Mass/Vol]1+ AbnormalNegativeKettering Health Greene MemorialRBC LM.HPF (Urine sed) [#/Area]/[HPF]Abnormal0-3 /HPFKettering Health Troypecific gravity (U) [Rel density]1.0191.005 - 1.030 [facility] MemorialUrobilinogen Ql (U)NegativeNegativeKettering Health Greene MemorialWBC LM.HPF (Urine sed) [#/Area]0-5 /HPF0-5 /HPFKettering Health Greene MemorialURINE CULTUREon 03-17-2022 Bacteria identified Cx Nom (U)No growth (<1,000 CFU/ml)[facility] MemorialTYPE AND SCREEN,30 DAYon 50-90-1678OYEOEetrmcqxc ClinicHIstorical Ab Scr StatusNegative [facility] MemorialRh Nom (Bld)PositiveCleMarymount HospitalCT UROGRAM WO/W IVCONon 09-42-2682Yacfnryrv ClinicDipstick and Microscopicon 41-16-3669Gciixkgwnb Nom (U)CloudyCritically abnormalCleAdena Pike Medical CenterComment on above:Order Comment: Name Collection Type:: Clean-Voided MidstreamPerformed By: #### ADDONUAPLUS, CUU #### [facility] [address] [id number] USABacteria LM.HPF #/area (Urine sed)None SeenNormalNone Seen [facility] HospitalComment on above:Order Comment: Name Collection Type:: Clean-Voided MidstreamPerformed By: #### ADDONUAPLUS, CUU #### [facility] [address] [place] [address] USABilirubin,UrineNegativeNormalNegativeAultman Alliance Community HospitalComment on above:Order Comment: Name Collection Type:: Clean- Voided MidstreamPerformed By: #### ADDONUAPLUS, CUU #### [facility] [address] [place] [address] USAColor Nom (U)YellowNormalYellowAultman Alliance Community HospitalComment on above:Order Comment: Name Collection Type:: Clean-Voided MidstreamPerformed By: #### ADDONUAPLUS, CUU #### [place] [address] USAGlucose Ql (U)NormalNormalNormWooster Community HospitalComment on above:Order Comment: Name Collection Type:: Clean-Voided MidstreamPerformed By: #### ADDONUAPLUS, CUU #### [place] [address] USAHyaline Casts,Baanj5-9Ljuyhr4-5KslltcxvfAultman Alliance Community HospitalComment on above:Order Comment: Name Collection Type:: Clean-Voided MidstreamResult Comment: PERFORMED BY: [place] [address] PATHOLOGIST SURVEY STATISTICIAN LEONARD MCCLAIN M.D.Performed By: #### ADDONUAPLUS, CUU #### [place] [address] USAKetones Ql (U)NegativeNormalNegRiverside Methodist HospitalComment on above:Order Comment: Name Collection Type:: Clean- Voided MidstreamPerformed By: #### ADDONUAPLUS, CUU #### [place] [address] USALeukocyte esterase Test strip Ql (U)4+HighNegative [facility] HospitalComment on above:Order Comment: Name Collection Type:: Clean-Voided MidstreamPerformed By: #### ADDONUAPLUS, CUU #### [place] [address] USANitrite,UrineNegativeNormmnNegRiverside Methodist HospitalComment on above:Order Comment: Name Collection Type:: Clean- Voided MidstreamPerformed By: #### ADDONUAPLUS, CUU #### [place] [address] USAOccult Blood,Urine3+HighNegativeAultman Alliance Community HospitalComment on above:Order Comment: Name Collection Type:: Clean-Voided MidstreamResult Comment: PERFORMED BY: [place] [address] PATHOLOGIST SURVEY STATISTICIAN LEONARD MCCLAIN M.D.Performed By: #### JONATHAN, CUU #### [place] [address] USApH (U)7.0 [pH]Normal5.0-9.0[facility] HospitalComment on above:Order Comment: Name Collection Type:: Clean-Voided MidstreamPerformed By: #### ADDRICHYPLUS, CUU #### [place] [address] USAProtein mass conc (U)30 mg/dLHighNegativeAultman Alliance Community HospitalComment on above:Order Comment: Name Collection Type:: Clean-Voided MidstreamPerformed By: #### ADDNOEL, CUU #### [place] [address] USARBC LM.HPF #/area (Urine sed)InnumerableHigh0-4FAvita Health SystemComment on above:Order Comment: Name Collection Type:: Clean-Voided MidstreamPerformed By: #### JONATHAN, CUU #### [place] [address] USASpecificy Savage,Urine1.267Mzzuzn2.001-1.030[facility] HospitalComment on above:Order Comment: Name Collection Type:: Clean-Voided MidstreamPerformed By: #### ADDONKAITLINPLUS, CUU #### [place] [address] USASquamous Epithelial Cell,UrineNone SeenNormal0-2FAvita Health SystemComment on above:Order Comment: Name Collection Type:: Clean-Voided MidstreamPerformed By: #### ADDONUAPLUS, CUU #### [place] [address] USAUrobilinogen,UrineNormalNormalNormalAultman Alliance Community HospitalComment on above:Order Comment: Name Collection Type:: Clean- Voided MidstreamPerformed By: #### JONATHAN, CUU #### [facility] [address] LM.HPF #/area (Urine sed)InnumerableStonewall Jackson Memorial Hospital0-[address] [place], [place] [address]Comment on above:Order Comment: Name Collection Type:: Clean-Voided MidstreamPerformed By: #### JONATHAN, CUU #### [facility] [address] [id number] USALon 02-23-2019 Specimen: [id number] Received: 02/23/19 Status: MALCOLM Mendez Num: [id number] Spec Type: Cytology Subm Dr: Jian Rodriguez MD Tissues: A CYTOSLIDE (URINE) Procedures: Pap Stain/2 Patient Age/Sex Location Account Attending Physician Juan Jose Austin Sr 78/M [place] [id number] Jian Rodriguez MD SPEC NUM: [id number] RECD: 02/23/19 STATUS: MALCOLM MENDEZ NUM: [id number] ALEKSANDR: 02/23/[address] [facility] [address]: Jian Rodriguez MD ENTERED: 02/23/19 [facility] DR: FARRAH TYPE: Cytology DEPT: CN ORDERED: [...] examined. Microscopic examination supports the pathologic diagnosis. [id number] Specimen: [id number] Received: 02/23/19 Status: MALCOLM Mendez Num: [id number] Spec Type: Cytology Subm Dr: Jian Rodriguez MD Tissues: A CYTOSLIDE (URINE) Procedures: Pap Stain/2 Patient: Juan Jose Austin Shirley Sr [id number] (Continued) Signed (signature on file) Julio Cesar Carr MD 02/24/19 1700 [facility] HospitalUrine Cultureon 44-71-0696Ntnmwbkn identified Cx Nom (U)ORGANISM: Pseudomonas aeruginosa (O:PSEAER) [place] Count >100,000 100,000 CFU/ML OTHER MIXED BACTERIAL [...] RESISTANT TO ALL B-LACTAM DRUGS. PERFORMED BY: [address] [address] PATHOLOGIST SURVEY STATISTICIAN LEONARD MCCLAIN M.D.[facility] Methodist HospitalComment on above: Performed By: #### JAMAR CASTILLO #### [address] [address] [facility] Vital Signs Date TimeVital SignValuePerforming [id number] 08:47-0400Body ewexvzyrjrt62.4 [degF]Harpreet Avalos GROUP PRACTICE PEDIATRICIAN-BUSINESS RECORDS MANAGER Work Phone: [facility]08-04-2025 08:47-0400Diastolic blood ybhgpsfb15 mm[Hg]Harpreet Avalos GROUP PRACTICE PEDIATRICIAN-BUSINESS RECORDS MANAGER Work Phone: [facility]08-04-2025 08:47-0400Heart rate 74 /minHarpreet Avalos GROUP PRACTICE PEDIATRICIAN-BUSINESS RECORDS MANAGER Work Phone: [facility]08-04-2025 08:47-0400 Respiratory rate18 /minHarpreet Avalos GROUP PRACTICE PEDIATRICIAN-BUSINESS RECORDS MANAGER Work Phone: [facility]08-04-2025 08:47-0400Systolic blood rrcmfwuf705 mm[Hg]Harpreet Avalos GROUP PRACTICE PEDIATRICIAN-BUSINESS RECORDS MANAGER Work Phone: [facility]07-26-2025 10:04-0400Body nstdol395.6 cmBrblank Mary GROUP PRACTICE PEDIATRICIAN-BUSINESS RECORDS MANAGER Work Phone: [facility] [employer] [id number] 10:04-0400Body mass index (BMI) [Ratio]27.98 kg/y4IulinktChago Hernandez GROUP PRACTICE PEDIATRICIAN-BUSINESS RECORDS MANAGER Work Phone: [facility]07-26-2025 10:04-0400Body ecldyb81.94 kgBrianna Dechristopher GROUP PRACTICE PEDIATRICIAN-BUSINESS RECORDS MANAGER Work Phone: [facility] [employer] [id number] 10:04-0400Diastolic blood efsrinoj21 mm[Hg]Chago Montillaer GROUP PRACTICE PEDIATRICIAN-BUSINESS RECORDS MANAGER Work Phone: [facility]07-26-2025 10:04-0400Heart rate 71 /minChago Wuopher GROUP PRACTICE PEDIATRICIAN-BUSINESS RECORDS MANAGER Work Phone: [facility]07-26-2025 10:04-5097LpD3% (BldA) [Mass fraction]98 %Chago Decistopher GROUP PRACTICE PEDIATRICIAN-BUSINESS RECORDS MANAGER Work Phone: [facility]07-26-2025 10:04-0400Systolic blood equkuxop975 mm[Hg]Chago Wuopher GROUP PRACTICE PEDIATRICIAN-BUSINESS RECORDS MANAGER Work Phone: [facility] [employer] [id number] 15:01-0400Body isdlcwxoacz04.6 [degF]Harpreet Avalos GROUP PRACTICE PEDIATRICIAN-BUSINESS RECORDS MANAGER Work Phone: [facility]07-21-2025 15:01-0400Diastolic blood kjrngauj86 mm[Hg]Harpreet Avalos GROUP PRACTICE PEDIATRICIAN-BUSINESS RECORDS MANAGER Work Phone: [facility]07-21-2025 15:01-0400Heart rate 75 /minHarpreet Avalos GROUP PRACTICE PEDIATRICIAN-BUSINESS RECORDS MANAGER Work Phone: [facility]07-21-2025 15:01-0400 Respiratory rate18 /minHarpreet Avalos GROUP PRACTICE PEDIATRICIAN-BUSINESS RECORDS MANAGER Work Phone: [facility]07-21-2025 15:01-0400Systolic blood mm[Hg]Harpreet Avalos GROUP PRACTICE PEDIATRICIAN-BUSINESS RECORDS MANAGER Work Phone: [facility]01-10-2025 09:01-0500Body mass index (BMI) [Ratio]29.23 kg/n0TdtmiGraeme Vazquez MD Work Phone: [facility]01-10-2025 09:01-0500Body temperature 97.7 [degF]Graeme Vazquez MD Work Phone: [facility]01-10-2025 09:01-0500Body eluvga34.7 kgGraeme Vazquez MD Work Phone: [facility]01-10-2025 09:01-0500Diastolic blood utkdodsk65 mm[Hg]Graeme Vazquez MD Work Phone: [facility]01-10-2025 09:01-0500Heart rate63 /min Graeme Vazquez MD Work Phone: [facility]01-10-2025 09:01-0500Respiratory rate 18 /minGraeme Vazquez MD Work Phone: [facility]01-10-2025 09:01-1273RmA9% (BldA) [Mass fraction]98 %Graeme Vazquez MD Work Phone: [facility]01-10-2025 09:01-0500Systolic blood kfvjfepf636 mm[Hg]Graeme Vazquez MD Work Phone: [facility]11-28-2024 20:54-0500Body temperature 98.01 [degF]Leni Santiago MD Work Phone: [facility]11-28-2024 20:54-0500Diastolic blood wjmcinua46 mm[Hg]Leni Santiago MD Work Phone: [facility]11-28-2024 20:54-0500Heart rate60 /Fawad Santiago MD Work Phone: [facility] [place] [address]-28-2024 20:54-0500 Respiratory rate18 /Fawad Santiago MD Work Phone: [facility]11-28-2024 20:54-1174CzI4% (BldA) [Mass fraction]98 %Leni Santiago MD Work Phone: [facility] [place] [address]-28-2024 20:54-0500Systolic blood yhsmbdqz122 mm[Hg]Leni Santiago MD Work Phone: [facility]11-08-2024 09:22-0500Body cmVbritany Vazquez MD Work Phone: [facility]11-08-2024 09:22-0500Body mass index (BMI) [Ratio]28.12 kg/w6GfpjrGraeme Vazquez MD Work Phone: [facility]11-08-2024 09:22-0500Body temperature 97.2 [degF]Graeme Vazquez MD Work Phone: [facility]11-08-2024 09:22-0500Body .8 kgGraeme Vazquez MD Work Phone: [facility]11-08-2024 09:22-0500Diastolic blood rtyqrfmp40 mm[Hg]Graeme Vazquez MD Work Phone: [facility]11-08-2024 09:22-0500Heart rate64 /min Graeme Vazquez MD Work Phone: [facility]11-08-2024 09:22-0500Respiratory rate 16 /minGraeme Vazquez MD Work Phone: [facility]11-08-2024 09:22-1598VyO5% (BldA) [Mass fraction]98 %Graeme Vazquez MD Work Phone: [facility]11-08-2024 09:22-0500Systolic blood cebvsxrm319 mm[Hg]Graeme Vazquez MD Work Phone: [facility]08-05-2024 12:47-0400Body hswiam310 cm Graeme Vazquez MD Work Phone: [facility] MemorialComment on above:verifed by 2 no shoes 05-18-2024 12:47-0400Body mass index (BMI) [Ratio]26.18 kg/e3EezriGraeme Vazquez MD Work Phone: [facility]08-05-2024 12:47-0400Body temperature 97.11 [degF]Graeme Vazquez MD Work Phone: [facility]08-05-2024 12:47-0400Body ievubd21.7 kgrGaeme Vazquez MD Work Phone: [facility]08-05-2024 12:47-0400Diastolic blood uqgfsczf08 mm[Hg]Graeme Vazquez MD Work Phone: [facility]08-05-2024 12:47-0400Heart rate66 /min Graeme Vazquez MD Work Phone: [facility]08-05-2024 12:47-0400Respiratory rate 16 /minGraeme Vazquez MD Work Phone: [facility]08-05-2024 12:47-3477PhO3% (BldA) [Mass fraction]99 %Graeme Vazquez MD Work Phone: [facility]08-05-2024 12:47-0400Systolic blood npiaocdg128 mm[Hg]Graeme Vazquez MD Work Phone: [facility]06-09-2024 22:58-0400Diastolic blood qojcrsrh76 mm[Hg]China JACOBS [facility]06-09-2024 22:58-0400Heart rate61 /minSkvng JACOBS [facility]06-09-2024 22:58-0400Respiratory rate14 /minSkvng JACOBS [facility]06-09-2024 22:58-7048MzG4% (BldA) [Mass fraction]96 %China JACOBS [facility]06-09-2024 22:58-0400 Systolic blood etckatex520 mm[Hg]China JACOBS [facility]06-09-2024 17:55-0400Body pchccznhyye72.7 [degF][facility] 03-22-2024 17:54-0400Body msuzrs75.97 kgChina [facility] 12-20-2023 13:09-0500Body vsyxhk271.6 cmPatricia Conteh GROUP PRACTICE PEDIATRICIAN.BUSINESS RECORDS MANAGER Work Phone: [facility]03-08-2024 13:09-0500Body temperature 97.2 [degF]Patricia Conteh GROUP PRACTICE PEDIATRICIAN.BUSINESS RECORDS MANAGER Work Phone: [facility]03-08-2024 13:09-0500Body svntie20.1 kgPatricia Conteh GROUP PRACTICE PEDIATRICIAN.BUSINESS RECORDS MANAGER Work Phone: [phone]03-08-2024 13:09-0500Diastolic blood mm[Hg]Patricia Conteh GROUP PRACTICE PEDIATRICIAN.BUSINESS RECORDS MANAGER Work Phone: [phone] [place], [place] [address]3-08-2024 13:09-0500Heart rate66 /min Patricia Conteh GROUP PRACTICE PEDIATRICIAN.BUSINESS RECORDS MANAGER Work Phone: [phone]03-08-2024 13:09-0500Respiratory rate 16 /minPatricia Conteh APRN.BUSINESS RECORDS MANAGER Work Phone: [phone])381-[address] [place], [place] [address]3-08-2024 13:09-4704QtE6% (BldA) [Mass fraction]97 %Patricia Conteh GROUP PRACTICE PEDIATRICIAN.BUSINESS RECORDS MANAGER Work Phone: [facility]03-08-2024 13:09-0500Systolic blood dzgyxogf592 mm[Hg]Patricia Conteh GROUP PRACTICE PEDIATRICIAN.BUSINESS RECORDS MANAGER Work Phone: [phone]02-16-2024 12:51-0500Body jfzetj968.6 Vinod Vazquez MD Work Phone: [facility]02-16-2024 12:51-0500Body temperature 98.01 [degF]Graeme Vazquez MD Work Phone: [facility]02-16-2024 12:51-0500Body nkpeep61.9 kgGraeme Vazquez MD Work Phone: [facility]02-16-2024 12:51-0500Diastolic blood xezkcecb81 mm[Hg]Graeme Vazquez MD Work Phone: [facility]02-16-2024 12:51-0500Heart rate71 /min Graeme Vazquez MD Work Phone: [facility]02-16-2024 12:51-0500Respiratory rate 16 /minGraeme Vazquez MD Work Phone: [facility]02-16-2024 12:51-0407XeU2% (BldA) [Mass fraction]98 %Graeme Vazquez MD Work Phone: [facility]02-16-2024 12:51-0500Systolic blood mm[Hg]Graeme Vazquez MD Work Phone: [facility]12-07-2023 14:50-0500Diastolic blood jujhdefv49 mm[Hg]Chair Winsome Work Phone: [facility]12-07-2023 14:50-0500Systolic blood izarrrow679 mm[Hg]Chair Bent Work Phone: [facility]11-16-2023 12:37-0500Body iwbxdd546.6 cmVbritany Vazquez MD Work Phone: [facility]11-16-2023 12:37-0500Body temperature 97.5 [degF]Graeme Vazquez MD Work Phone: [facility]11-16-2023 12:37-0500Body edfkqp43.75 kgGraeme Vazquez MD Work Phone: [place] [address]-16-2023 12:37-0500Diastolic blood gujgzkkz18 mm[Hg]Graeme Vazquez MD Work Phone: [facility]11-16-2023 12:37-0500Heart rate60 /min Graeme Vazquez MD Work Phone: [facility]11-16-2023 12:37-0500Respiratory rate 18 /minGraeme Vazquez MD Work Phone: [facility]11-16-2023 12:37-1915CcH9% (BldA) [Mass fraction]97 %Graeme Vazquez MD Work Phone: [facility]11-16-2023 12:37-0500Systolic blood seyszzrm667 mm[Hg]Graeme Vazquez MD Work Phone: [facility]10-05-2023 13:14-0400Body ceeomj967.6 cmVbritany Vazquez MD Work Phone: [facility]10-05-2023 13:14-0400Body temperature 97.59 [degF]Graeme Vazquez MD Work Phone: [facility]10-05-2023 13:14-0400Body .74 kgGraeme Vazquez MD Work Phone: [facility]10-05-2023 13:14-0400Diastolic blood mmxhewkh69 mm[Hg]Graeme Vazquez MD Work Phone: [facility]10-05-2023 13:14-0400Heart rate61 /min Graeme Vazquez MD Work Phone: [facility]10-05-2023 13:14-0400Respiratory rate 18 /minGraeme Vazquez MD Work Phone: [facility]10-05-2023 13:14-9062ZeN0% (BldA) [Mass fraction]96 %Graeme Vazquez MD Work Phone: [facility]10-05-2023 13:14-0400Systolic blood xzjysqbg552 mm[Hg]Graeme Vazquez MD Work Phone: [facility]09-14-2023 13:02-0400Body ggnabj240.6 cmPatricia Conteh APRN.CNP Work Phone: [facility]09-14-2023 13:02-0400Body temperature 97 [degF]Patricia Conteh GROUP PRACTICE PEDIATRICIAN.BUSINESS RECORDS MANAGER Work Phone: [facility]09-14-2023 13:02-0400Body bbufln69.19 kgPatricia Conteh GROUP PRACTICE PEDIATRICIAN.BUSINESS RECORDS MANAGER Work Phone: [facility]09-14-2023 13:02-0400Diastolic blood sixabkyd97 mm[Hg]Patricia Conteh GROUP PRACTICE PEDIATRICIAN.BUSINESS RECORDS MANAGER Work Phone: [facility]09-14-2023 13:02-0400Heart rate61 /min Patricia Conteh GROUP PRACTICE PEDIATRICIAN.BUSINESS RECORDS MANAGER Work Phone: [facility]09-14-2023 13:02-0400Respiratory rate 16 /minPatricia Conteh GROUP PRACTICE PEDIATRICIAN.BUSINESS RECORDS MANAGER Work Phone: [facility]09-14-2023 13:02-5280HoT3% (BldA) [Mass fraction]99 %Patricia Conteh GROUP PRACTICE PEDIATRICIAN.BUSINESS RECORDS MANAGER Work Phone: [facility]09-14-2023 13:02-0400Systolic blood wrolxcgb526 mm[Hg]Patricia Conteh GROUP PRACTICE PEDIATRICIAN.BUSINESS RECORDS MANAGER Work Phone: [facility]08-24-2023 13:31-0400Body lkmonb104.6 cmVbritany Vazquez MD Work Phone: [facility]08-24-2023 13:31-0400Body temperature 97.81 [degF]Graeme Vazquez MD Work Phone: [facility]08-24-2023 13:31-0400Body viykox22.47 kgGraeme Vazquez MD Work Phone: [facility]08-24-2023 13:31-0400Diastolic blood jatavvlv81 mm[Hg]Graeme Vazquez MD Work Phone: [facility]08-24-2023 13:31-0400Heart rate60 /min Graeme Vazquez MD Work Phone: [facility]08-24-2023 13:31-0400Respiratory rate 16 /minGraeme Vazquez MD Work Phone: [facility]08-24-2023 13:31-4079BcK9% (BldA) [Mass fraction]99 %Graeme Vazquez MD Work Phone: [facility]08-24-2023 13:31-0400Systolic blood ygbxljsu685 mm[Hg]Graeme Vazquez MD Work Phone: [facility]08-03-2023 13:02-0400Body uncxkt335.6 cmVbritany Vazquez MD Work Phone: [facility]08-03-2023 13:02-0400Body temperature 97.81 [degF]Graeme Vazquez MD Work Phone: [facility]08-03-2023 13:02-0400Body .65 kgGraeme Vazquez MD Work Phone: [facility]08-03-2023 13:02-0400Diastolic blood sonjxfwb31 mm[Hg]Graeme Vazquez MD Work Phone: [facility]08-03-2023 13:02-0400Heart rate62 /min Graeme Vazquez MD Work Phone: [facility]08-03-2023 13:02-0400Respiratory rate 18 /minGraeme Vazquez MD Work Phone: [facility]08-03-2023 13:02-8907HbS7% (BldA) [Mass fraction]100 %Graeme Vazquez MD Work Phone: [facility]08-03-2023 13:02-0400Systolic blood cmawudss202 mm[Hg]Graeme Vazquez MD Work Phone: [facility]07-13-2023 12:54-0400Body .6 cmPatricia Conteh APRN.BUSINESS RECORDS MANAGER Work Phone: [facility]07-13-2023 12:54-0400Body temperature 97.39 [degF]Patricia Conteh APRN.BUSINESS RECORDS MANAGER Work Phone: [facility]07-13-2023 12:54-0400Body ntvyke01.74 kgPatricia Conteh APRN.BUSINESS RECORDS MANAGER Work Phone: [facility]07-13-2023 12:54-0400Diastolic blood pyfvzxcz58 mm[Hg]Patricia Conteh GROUP PRACTICE PEDIATRICIAN.BUSINESS RECORDS MANAGER Work Phone: [facility]07-13-2023 12:54-0400Heart rate66 /min Patricia Conteh APRN.BUSINESS RECORDS MANAGER Work Phone: [facility]07-13-2023 12:54-0400Respiratory rate 16 /minPatricia Conteh APRN.BUSINESS RECORDS MANAGER Work Phone: [facility]07-13-2023 12:54-8664JwG1% (BldA) [Mass fraction]97 %Patricia Conteh APRN.BUSINESS RECORDS MANAGER Work Phone: [facility]07-13-2023 12:54-0400Systolic blood qaparebr013 mm[Hg]Patricia Conteh APRN.BUSINESS RECORDS MANAGER Work Phone: [facility]06-22-2023 10:25-0400Body ddtjys025.6 cmPatricia Conteh APRN.BUSINESS RECORDS MANAGER Work Phone: [facility]06-22-2023 10:25-0400Body temperature 97.7 [degF]Patricia Conteh APRN.BUSINESS RECORDS MANAGER Work Phone: [facility]06-22-2023 10:25-0400Body flaaii19.29 kgPatricia Conteh APRN.BUSINESS RECORDS MANAGER Work Phone: [facility]06-22-2023 10:25-0400Diastolic blood cuvfttnp34 mm[Hg]Patricia Conteh APRN.BUSINESS RECORDS MANAGER Work Phone: [facility]06-22-2023 10:25-0400Heart rate67 /min Patricia Conteh APRN.BUSINESS RECORDS MANAGER Work Phone: [facility]06-22-2023 10:25-0400Respiratory rate 16 /minPatricia Conteh APRN.BUSINESS RECORDS MANAGER Work Phone: [facility]06-22-2023 10:25-6063VfF4% (BldA) [Mass fraction]97 %Patricia Conteh GROUP PRACTICE PEDIATRICIAN.BUSINESS RECORDS MANAGER Work Phone: [facility]06-22-2023 10:25-0400Systolic blood olkitqhf874 mm[Hg]Patricia Conteh GROUP PRACTICE PEDIATRICIAN.BUSINESS RECORDS MANAGER Work Phone: [facility]05-30-2023 10:00-0400Body afdfsd51.56 kgCamtwyla Nelson Other [place] [facility] Other 05-30-2023 10:00-0400Diastolic blood oofoinfh56 mm[Hg] Shawn Nelson Other [place] [facility] Other 05-30-2023 10:00-0400Systolic blood hppeyulc085 mm[Hg] Shawn Nelson Other [place] [facility] Other 04-20-2023 08:17-0400Body .6 Vinod Vazquez MD Work Phone: [facility]04-20-2023 08:17-0400Body temperature 97.5 [degF]Graeme Vazquez MD Work Phone: [facility]04-20-2023 08:17-0400Body .19 kgGraeme Vazquez MD Work Phone: [facility]04-20-2023 08:17-0400Diastolic blood yfktlral44 mm[Hg]Graeme Vazquez MD Work Phone: [facility]04-20-2023 08:17-0400Heart rate59 /min Graeme Vazquez MD Work Phone: [facility]04-20-2023 08:17-0400Respiratory rate 16 /minGraeme Vazquez MD Work Phone: [facility]04-20-2023 08:17-2702XxU1% (BldA) [Mass fraction]97 %Graeme Vazquez MD Work Phone: [facility]04-20-2023 08:17-0400Systolic blood obblyviz889 mm[Hg]Graeme Vazquez MD Work Phone: [facility]03-22-2023 14:58-0400Body gehnrw067.6 cmVbritany Vazquez MD Work Phone: [facility]03-22-2023 14:58-0400Body temperature 97.3 [degF]Graeme Vazquez MD Work Phone: [facility]03-22-2023 14:58-0400Body xikfqi96.2 kgGraeme Vazquez MD Work Phone: [facility]03-22-2023 14:58-0400Diastolic blood orjlostr49 mm[Hg]Graeme Vazquez MD Work Phone: [facility]03-22-2023 14:58-0400Heart rate63 /min Graeme Vazquez MD Work Phone: [facility]03-22-2023 14:58-0400Respiratory rate 16 /minGraeme Vazquez MD Work Phone: [facility]03-22-2023 14:58-2770XbA6% (BldA) [Mass fraction]97 %Graeme Vazquez MD Work Phone: [facility]03-22-2023 14:58-0400Systolic blood mm[Hg]Graeme Vazquez MD Work Phone: [place] [address]-22-2023 09:20-0500Blood Pressure LocationPaeliza RODRIGUEZ [facility]02-22-2023 09:20-0500Diastolic blood oneeotpk61 mm[Hg]Jian RODRIGUEZ [facility]02-22-2023 09:20-0500Heart rate59 /minPaeliza RODRIGUEZ [facility]02-22-2023 09:20-0500Systolic blood eyefmtnb723 mm[Hg]Jian RODRIGUEZ [facility] [place] [address]-13-2023 08:40-0500Body qydnin420.6 Vinod Vazquez MD Work Phone: [place] [address]-13-2023 08:40-0500Body temperature 97.7 [degF]Graeme Vazquez MD Work Phone: [place] [address]-13-2023 08:40-0500Body .47 kgGraeme Vaqzuez MD Work Phone: [place] [address]-13-2023 08:40-0500Diastolic blood efqwhxdk36 mm[Hg]Graeme Vazquez MD Work Phone: [place] [address]-13-2023 08:40-0500Heart rate60 /min Graeme Vazquez MD Work Phone: [place] [address]-13-2023 08:40-0500Respiratory rate 16 /minGraeme Vazquez MD Work Phone: [place] [address]-13-2023 08:40-6842UnL5% (BldA) [Mass fraction]97 %Graeme Vazquez MD Work Phone: [place] [address]-13-2023 08:40-0500Systolic blood qnnjdbew565 mm[Hg]Graeme Vazquez MD Work Phone: [facility]11-30-2022 14:05-0500Body bmtvpa693.6 Jen Saenz MD Work Phone: [facility]es[facility]6741 14:05-0500Body .93 kgNicholas Saenz MD Work Phone: [phone] HospitalPwukdw48-21-6326 14:05-0500Diastolic blood dieltwmm23 mm[Hg]Nicholas Saenz MD Work Phone: [phone] [facility] HospitalQpyjym82-67-5283 14:05-0500Heart rate79 /min Nicholas Saenz MD Work Phone: [facility] HospitalIyaqyq95-94-4445 14:05-0500Systolic blood zratzgsp028 mm[Hg]Nicholas Saenz MD Work Phone: [place] [address]-30-2022 10:56-0500Diastolic blood rybtlveb75 mm[Hg]Pacc 4 Work Phone: [phone]11-30-2022 10:56-0500Systolic blood ejlzrxof298 mm[Hg]Pacc 4 Work Phone: [facility]11-30-2022 10:55-0500Body icgztk165.6 cmPacc 4 Work Phone: [phone]11-30-2022 10:55-0500Body temperature 98.29 [degF]Pacc 4 Work Phone: [phone] [address]-30-2022 10:55-0500Body ucrovw72.93 kgPacc 4 Work Phone: [phone]11-30-2022 10:55-0500Heart rate66 /min Pacc 4 Work Phone: [phone]11-30-2022 10:55-0739UmU4% (BldA) [Mass fraction]96 %Pacc 4 Work Phone: [phone]05-26-2022 11:15-0400Body zopzah73.65 kgDavid Komal Other [place] [facility] Other [phone] 12:37-0400Body zemkdb437.6 cmScristofer Perea MD Work Phone: [facility]05-23-2022 12:37-0400Body temperature 97.81 [degF]Soren Perea MD Work Phone: [facility]05-23-2022 12:37-0400Body msyskk01.01 kgSiwally Perea MD Work Phone: [facility]05-23-2022 12:37-0400Diastolic blood suwlsszc96 mm[Hg]Soren Perea MD Work Phone: [facility]05-23-2022 12:37-0400Heart rate56 /min Soren Perea MD Work Phone: [facility]05-23-2022 12:37-0400Respiratory rate 16 /minScristofer Perea MD Work Phone: [facility]05-23-2022 12:37-0052HiZ6% (BldA) [Mass fraction]97 %Soren Perea MD Work Phone: [facility]05-23-2022 12:37-0400Systolic blood girgzkts094 mm[Hg]Soren Perea MD Work Phone: [facility]05-09-2022 12:37-0400Body .6 cmCorazon Maxwell PA-C Work Phone: [facility]05-09-2022 12:37-0400Body temperature 97.59 [degF]Corazon Maxwell PA-C Work Phone: [facility]05-09-2022 12:37-0400Body mrgdey18.19 kgMintamara Maxwell PA-C Work Phone: [place] [address]-09-2022 12:37-0400Diastolic blood afupljjk11 mm[Hg]Corazon Beller PA-C Work Phone: [facility]05-09-2022 12:37-0400Heart rate67 /min Coraozn Beller PA-C Work Phone: [facility]05-09-2022 12:37-0400Respiratory rate 18 /minMintamara Alissa PA-C Work Phone: [facility]05-09-2022 12:37-8133MmU2% (BldA) [Mass fraction]100 %Corazon Beller PA-C Work Phone: [facility]05-09-2022 12:37-0400Systolic blood rcxxyjue996 mm[Hg]Corazon Beller PA-C Work Phone: [facility]05-02-2022 12:56-0400Body qmohub541.6 cmScristofer Perea MD Work Phone: [facility]05-02-2022 12:56-0400Body temperature 97.39 [degF]Soren Perea MD Work Phone: [facility]05-02-2022 12:56-0400Body .46 kgSiwally Perea MD Work Phone: [facility]05-02-2022 12:56-0400Diastolic blood ptotrghx28 mm[Hg]Soren Perea MD Work Phone: [facility]05-02-2022 12:56-0400Heart rate52 /min Soren Perea MD Work Phone: [facility]05-02-2022 12:56-0400Respiratory rate 18 /minScristofer Perea MD Work Phone: [facility]05-02-2022 12:56-9667KpA5% (BldA) [Mass fraction]99 %Soren Perea MD Work Phone: [place] [address]-02-2022 12:56-0400Systolic blood suzrnfws587 mm[Hg]Soren Perea MD Work Phone: [facility]04-25-2022 12:40-0400Body ikomdl040.6 cmScristofer Perea MD Work Phone: [facility]04-25-2022 12:40-0400Body temperature 97.59 [degF]Soren Perea MD Work Phone: [facility]04-25-2022 12:40-0400Body jkmoat10.91 kgSiwally Perea MD Work Phone: [facility]04-25-2022 12:40-0400Diastolic blood tpdavhnu54 mm[Hg]Soren Perea MD Work Phone: [facility]04-25-2022 12:40-0400Heart rate57 /min Soren Perea MD Work Phone: [facility]04-25-2022 12:40-0400Respiratory rate 18 /minScristofer Perea MD Work Phone: [facility]04-25-2022 12:40-6166YiU4% (BldA) [Mass fraction]100 %Soren Perea MD Work Phone: [facility]04-25-2022 12:40-0400Systolic blood qzqbidgl111 mm[Hg]Soren Perea MD Work Phone: [facility]04-04-2022 12:35-0400Body aqqnku852.6 cmMintamara Maxwell PA-C Work Phone: [facility]04-04-2022 12:35-0400Body temperature 98.1 [degF]Corazon Maxwell PA-C Work Phone: [facility]04-04-2022 12:35-0400Body kypphu48.28 kgMintamara Maxwell PA-C Work Phone: [place] [address]-04-2022 12:35-0400Diastolic blood mm[Hg]Corazon Beller PA-C Work Phone: [facility]04-04-2022 12:35-0400Heart rate63 /min Corazon Beller PA-C Work Phone: [facility]04-04-2022 12:35-0400Respiratory rate 16 /minMintamara Alissa PA-C Work Phone: [facility]04-04-2022 12:35-2957UcX8% (BldA) [Mass fraction]98 %Corazon Beller PA-C Work Phone: [facility]04-04-2022 12:35-0400Systolic blood cdpvebup376 mm[Hg]Corazon Beller PA-C Work Phone: [facility]03-28-2022 09:09-0400Body yxwyrd138.6 cmScristofer Perea MD Work Phone: [facility]03-28-2022 09:09-0400Body temperature 97.11 [degF]Soren Perea MD Work Phone: [facility]03-28-2022 09:09-0400Body iyfjtt76.55 kgSiwally Perea MD Work Phone: [facility]03-28-2022 09:09-0400Diastolic blood teoxhhzf61 mm[Hg]Soren Perea MD Work Phone: [facility]03-28-2022 09:09-0400Heart rate62 /min Soren Perea MD Work Phone: [place] [address]-28-2022 09:09-0400Respiratory rate 18 /minScristofer Perea MD Work Phone: [facility]03-28-2022 09:09-6554LmG5% (BldA) [Mass fraction]98 %Soren Perea MD Work Phone: [place] [address]-28-2022 09:09-0400Systolic blood klkpiewa234 mm[Hg]Soren Perea MD Work Phone: [facility] Encounters Encounter DateEncounter [facility] ProviderFacilityStart: 07-19-2025 End: 13-86-2402rbrkrserlvRTHXPU [facility] Start: 06-30-2025 End: 72-74-6732heniclmmywSJWS St[facility] Hospitaltart: 05-17-2025 End: 55-92-0170Ofvcyu outpatient visit 15 minutesHarpreet Avalos GROUP PRACTICE PEDIATRICIAN-BUSINESS RECORDS MANAGER Work Phone: [facility] Wound Care ClinicComment on above:Chest wall ulcer, 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-HCC) (Primary Dx); Infection of pacemaker pocket, initial encounter; Open wound of left chest wall, initial encounterStart: 05-17-2025 End: 14-58-5222uipwpmbnyoAFGCSUGAH L BALLThe [facility] of [facility] Start: 05-14-2025 End: 47-47-8714crxmrxvluoZJXDXLake County Memorial Hospital - Westtart: 05-08-2025 End: 66-22-5691Ikocum follow up visit related to original Yesenia Hernandez APRN-BUSINESS RECORDS MANAGER Work Phone: [facility] CardiologyComment on above:Open wound of left chest wall, initial encounter (Primary Dx); Pacemaker complications, initial encounterStart: 81-38-7050hkqbrlpotbGIREZTOKarely HERNANDEZProMedica Bay Park Hospitaltart: 05-05-2025 End: 83-57-3007Cdlmx abstractingScanning Provider ExternalProMedica Physicians CardiologyStart: 05-05-2025 End: 37-96-7445Lifzuidjd encounterMegan Gigi RNProMedica Physicians Cardiology Comment on above:Extraction siteReminderStart: 05-04-2025 End: 35-32-5379Asesalqfgyapv procedureHarpreet Avalos GROUP PRACTICE PEDIATRICIAN-BUSINESS RECORDS MANAGER Work Phone: [facility] Wound Care OutpatientStart: 05-03-2025 End: 59-29-4375Gxlxsb outpatient new 30 minutesSallyjohnny Russo Jaxon GROUP PRACTICE PEDIATRICIAN-BUSINESS RECORDS MANAGER Work Phone: [facility] ClinicComment on above:Open wound of left chest wall, initial encounter (Primary Dx); 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; Infection of pacemaker pocket, initial encounterStart: 05-03-2025 End: 86-07-4249dkozmanxggHDUWXAFQH L BALLThe [facility] of [facility] Start: 04-22-2025 End: 42-67-2903Ivnnyidqs encounterGraeme Vazquez MD Work Phone: Hematology/OncologyComment on above:Patient Update Start: 04-19-2025 End: 35-63-5241Hoywhnfbtx and management of inpatientDOOhio State Health Systemtart: 04-19-2025 End: 35-78-4905Qbnylltyq department patient visitSProtestant Deaconess Hospitaltart: 04-33-6580rzzliobbvcUQVXF [facility] AmbulatoryStart: 03-16-2025 End: 34-93-5691xczwxoshaoWHEIBarney Children's Medical Centertart: 02-23-2025 End: 04-77-0118pdsscvjvlgJCZPBarney Children's Medical Centertart: 02-17-2025 End: 81-75-5702beibpylatfWKYPSEM [facility] Hospitaltart: 46-23-2227lkwzqltfmuGQDBPike Community Hospitaltart: 02-02-2025 End: 06-77-9994trtrfzvpurBAXFPike Community Hospitaltart: 01-21-2025 End: 12-12-0019nutwznbfjmPVLRBarney Children's Medical Centertart: 01-20-2025 End: 47-40-9871fsmjctenwsCTIFMercy Health Urbana Hospitaltart: 01-20-2025 End: 34-37-1381Xlkdxgdfi for other preprocedural examinationPAUL [facility] HospitalStart: 01-20-2025 End: 75-08-2671Wgmveszopl hospital visit by Radu Stubbs CNP Work Phone: [facility] LABStart: 01-20-2025 End: 25-94-5351daysvelffvWJOZBarney Children's Medical Centertart: 01-19-2025 End: 54-97-0932mlbksegbbnJQYCBarney Children's Medical Centertart: 01-08-2025 End: 92-85-2977zunxgwyfhfFGLWMC SONIAWayne HealthCare [facility] Start: 01-04-2025 End: 92-42-7261gfzboyfyzqOLUMUOZ L ANJELERMwexner medical centereli [facility] HospitalStart: 01-04-2025 End: 33-65-9219Arsiighghk hospital visit by Radu Stubbs CNP Work Phone: m[facility] LABComment on above:AbscessStart: 10-23-2024 End: 59-29-0678Dpzpds outpatient visit 25 minutesGraeme Vazquez MD Work Phone: Hematology/OncologyComment on above:Malignant neoplasm of overlapping sites of bladder (HCC) (Primary Dx); Malignant neoplasm of urinary bladder, unspecified site (HCC); CKD (chronic kidney disease), stage V (HCC); Disorder of thyroid; Malignant neoplasm of ureteric orifice (HCC)Start: 10-23-2024 End: 58-19-4118fxfvkpgkrrUCILG ABHYANKARFacility:[facility] Rehabilitationtart: 10-21-2024 End: 21-14-3142xbhcxbtcwkKOXNG W MIGHTOhiohealth Riverside Methodist Hospital HospitalStart: 10-21-2024 End: 96-84-8779Epondvynzt hospital visit by Radu Stubbs CNP Work Phone: mthz LaboratoryComment on above:Congenital hypothyroidism; DyslipidemiaStart: 10-16-2024 End: 97-02-4637vxcvmkqkclFFILW W MIGHTFacility:[facility] HospitalStart: 10-16-2024 End: 61-40-4980Mfeeyozxpp hospital visit by physicianArrival Time Radiology Work Phone: Radiology Pet CTComment on above:Malignant neoplasm of overlapping sites of bladder (HCC) [C67.8]Start: 09-29-2024 End: 94-80-2913qwugdxusevXLQOKeenan Private Hospitaltart: 09-16-2024 End: 39-99-9280pjotrsqzvdNBHVYGZMemorial Health System Selby General Hospitaltart: 09-10-2024 End: 43-07-9837Dllmvmvlw department patient visitLeni Santiago MD Work Phone: [facility] EDComment on above:Chest discomfort (Primary Dx)Start: 08-25-2024 End: 19-97-7607omycgdwtcsYGRKKeenan Private Hospitaltart: 08-21-2024 End: 98-34-5690Mrzquw outpatient visit 25 minutesGraeme Vazquez MD Work Phone: Hematology/OncologyComment on above:Malignant neoplasm of overlapping sites of bladder (HCC) (Primary Dx); CKD (chronic kidney disease), stage V (HCC); Malignant neoplasm of urinary bladder, unspecified site (HCC)Start: 08-21-2024 End: 23-82-3314aqvmgbzifyHTIKL ABHYANKARFacility:[facility] Rehabilitationtart: 06-29-2024 End: 33-24-3475rhmukbpshiKDDUB ABHYANKARFacility:[facility] Rehabilitationtart: 06-29-2024 End: 40-53-6855Inctmyypoe hospital visit by physicianArrival Time Radiology Work Phone: Radiology Pet CTComment on above:Malignant neoplasm of overlapping sites of bladder (HCC) [C67.8]Start: 05-18-2024 End: 58-09-5809Brwask outpatient visit 40 minutesGraeme Vazquez MD Work Phone: Hematology/OncologyComment on above:Malignant neoplasm of overlapping sites of bladder (HCC) (Primary Dx); CKD (chronic kidney disease), stage V (HCC); Malignant neoplasm of urinary bladder, unspecified site (HCC); Disorder of thyroid; Abnormal blood chemistryStart: 05-18-2024 End: 32-10-3894ymsmarzdjfHOOTSWV M HOYFacility:[facility] Rehabilitationtart: 12-93-0464Kycqegzsi encounterTifhailee Mckeon RN Work Phone: Hematology/OncologyComment on above:Care Coordination (Diarrhea >1 month)Start: 03-22-2024 End: 32-27-4624Aytqixnto department patient visitSean [facility] EDComment on above:Elevated troponin (Primary Dx)Start: 03-20-2024 Telephone encounterGraeme Vazquez MD Work Phone: Cancer Appts MCComment on above:Appointment Cancelled (Diarrhea/)Start: 58-48-0065P-mail encounter from Atilio Emmanuel APRN.CNP Work Phone: [facility] CL[facility]ICStart: 81-99-4064Vakhhpp encounter Serina Emmanuel APRN.CNP Work Phone: [facility] VIRTUAL CLINICComment on above:Actionable FindingStart: 43-44-6720Dwcvdqjnh encounterGraeme Vazquez MD Work Phone: Cancer Appts MCComment on above:No ShowStart: 01-24-2024 End: 03-46-3920Ixeyboxgwh hospital visit by physicianArrival Time Radiology Work Phone: Radiology Pet CTComment on above:Malignant neoplasm of urinary bladder, unspecified site (HCC) [C67.9]Start: 12-20-2023 End: 45-31-1314wmxtosxvfhPkaesRao Conteh APRN.CNP Work Phone: Hematology/OncologyComment on above:Malignant neoplasm of overlapping sites of bladder (HCC) (Primary Dx); CKD (chronic kidney disease), stage V (HCC); Abnormal weight loss; Malignant neoplasm of urinary bladder, unspecified site (HCC)Start: 12-20-2023 End: 12-46-0158Rqjlycl encounter French Conteh APRN.CNP Work Phone: SANDUSKYStart: 11-29-2023 End: 55-66-1584bvbbdqciytKjimx [address] [place] Work Phone: Hematology/OncologyComment on above:Malignant neoplasm of overlapping sites of bladder (HCC) (Primary Dx); Malignant neoplasm of right kidney, except renal pelvis (HCC); Malignant neoplasm of ureter, unspecified laterality (HCC)Start: 11-29-2023 End: 52-37-2361Jgygrt outpatient visit 40 minutesGraeme Vazquez MD Work Phone: Hematology/OncologyComment on above:Malignant neoplasm of overlapping sites of bladder (HCC) (Primary Dx); CKD (chronic kidney disease), stage V (HCC); Disorder of thyroid; Malaise and fatigueStart: 98-88-9105Tqoiruyrc encounterMargot So RN Work Phone: Hematology/OncologyComment on above:Care Coordination (Follow Up Appointment)Start: 82-99-5813Mfbkxbhtt encounterGraeme Vazquez MD Work Phone: Cancer Appts MCStart: 09-19-2023 End: 23-26-5893tquigruklyGdfsx [address] [place] Work Phone: Hematology/OncologyComment on above:Malignant neoplasm of overlapping sites of bladder (HCC) (Primary Dx); Malignant neoplasm of right kidney, except renal pelvis (HCC); Malignant neoplasm of ureter, unspecified laterality (HCC)Start: 08-29-2023 End: 02-42-8146Isyvor outpatient visit 25 minutesGraeme Vazquez MD Work Phone: Hematology/OncologyComment on above:Malignant neoplasm of overlapping sites of bladder (HCC) (Primary Dx); Malignant neoplasm of ureter, unspecified laterality (HCC); Malaise and fatigueStart: 08-23-2023 End: 32-79-0113Yxdegnifxd hospital visit by physicianArrival Time Radiology Work Phone: Radiology Pet CTComment on above:Malignant neoplasm of overlapping sites of bladder (HCC) [C67.8]Start: 49-51-0330Sbbnfwozb encounter Margot So RN Work Phone: Hematology/OncologyComment on above:Care Coordination (Sore Throat)Start: 07-18-2023 End: 60-51-8134bvahwbmiclUszuu [facility] Work Phone: Hematology/OncologyComment on above:Malignant neoplasm of overlapping sites of bladder (HCC) (Primary Dx); Malignant neoplasm of right kidney, except renal pelvis (HCC); Malignant neoplasm of ureter, unspecified laterality (HCC)Start: 07-18-2023 End: 94-02-0294Wbllxn outpatient visit 25 minutesGraeme Vazquez MD Work Phone: Hematology/OncologyComment on above:Malignant neoplasm of overlapping sites of bladder (HCC) (Primary Dx)Start: 06-27-2023 End: 49-30-5337yegwinhbnaCodud [facility] Work Phone: Hematology/OncologyComment on above:Malignant neoplasm of overlapping sites of bladder (HCC) (Primary Dx); Malignant neoplasm of right kidney, except renal pelvis (HCC); Malignant neoplasm of ureter, unspecified laterality (HCC)Malignant neoplasm of overlapping sites of bladder (HCC) (Primary Dx); Malaise and fatigueStart: 06-27-2023 End: 74-80-1738Jmwexjq encounter French Conteh APRN.CNP Work Phone: SANDUSKYStart: 06-18-2023 End: 78-27-3800glmoxrbvtyKctixn J Stein MD Work Phone: UrologyComment on above:Urothelial cancer (HCC) (Primary Dx)Start: 06-18-2023 End: 40-79-3530Qwgtuzwylvlr consultation with patientGalen Bhatt MD Work Phone: [facility] MAINStart: 06-06-2023 End: 03-40-8288hgklshwacbItyuc [facility] Work Phone: Hematology/OncologyComment on above:Malignant neoplasm of overlapping sites of bladder (HCC) (Primary Dx); Malignant neoplasm of right kidney, except renal pelvis (HCC); Malignant neoplasm of ureter, unspecified laterality (HCC)Start: 06-06-2023 End: 25-33-0185Lixhau outpatient visit 25 minutesGraeme Vazquez MD Work Phone: Hematology/OncologyComment on above:Malignant neoplasm of overlapping sites of bladder (HCC) (Primary Dx); Malignant neoplasm of ureter, unspecified laterality (HCC); Disorder of thyroidStart: 05-31-2023 End: 86-51-1130LqrrhgUwmbwm J Stein MD Work Phone: UrologyComment on above:Refill RequestMalignant neoplasm of overlapping sites of bladder (HCC) [C67.8]Start: 05-16-2023 End: 52-59-6774jakbqbmfctKfmaa Anthony Fam Work Phone: Hematology/OncologyComment on above:Malignant neoplasm of overlapping sites of bladder (HCC) (Primary Dx); Malignant neoplasm of right kidney, except renal pelvis (HCC); Malignant neoplasm of ureter, unspecified laterality (HCC)Start: 05-16-2023 End: 93-90-6194Arkwdp outpatient visit 25 minutesGraeme Vazquez MD Work Phone: Hematology/OncologyComment on above:Malignant neoplasm of overlapping sites of bladder (HCC) (Primary Dx)Start: 05-07-2023 End: 36-91-4673ultlfndnklNicaen J Stein MD Work Phone: UrologyComment on above:Malignant neoplasm of urothelium (HCC) (Primary Dx)Start: 05-07-2023 End: 07-92-2146Duqpfylxfwuf consultation with Harrison Bhatt MD Work Phone: [facility] MAINStart: 04-25-2023 End: 96-02-9527Smbdhx Eun Sneed MD Work Phone: Hematology/OncologyComment on above:Dry mouth (Primary Dx); Other general symptoms and signsMalignant neoplasm of overlapping sites of bladder (HCC) (Primary Dx)Malignant neoplasm of overlapping sites of bladder (HCC) (Primary Dx); Malignant neoplasm of right kidney, except renal pelvis (HCC); Malignant neoplasm of ureter, unspecified laterality (HCC)Start: 04-04-2023 End: 33-37-9550fqiiqucxgcFwnsq Martinez APRN.CNP Work Phone: Hematology/OncologyComment on above:Malignant neoplasm of overlapping sites of bladder (HCC) (Primary Dx)Malignant neoplasm of overlapping sites of bladder (HCC) (Primary Dx); Malignant neoplasm of right kidney, except renal pelvis (HCC); Malignant neoplasm of ureter, unspecified laterality (HCC)Start: 04-04-2023 End: 31-10-3837Gvbrysi encounter procedurePatricia Conteh APRN.CNP Work Phone: SANDUSKYStart: 03-12-2023 End: 77-43-8729byizmmukrhHupdbhb Ditty Other [place] [facility] Other Start: 01-29-0547Evivwyp encounter procedureShawn NietoG GastroenterologyStart: 03-10-2023 End: 44-68-5295qjiptncihfFU DI OCHOA .Facility:D2Xwace: 77-14-4453Ghscejxne encounterGraeme Vazquez MD Work Phone: Cancer Appts MCComment on above:Return Call Request; Call ptStart: 01-31-2023 End: 61-88-9329gsexhnkntmFatpc [address] Work Phone: Hematology/OncologyComment on above:Malignant neoplasm of overlapping sites of bladder (HCC) (Primary Dx); Malignant neoplasm of right kidney, except renal pelvis (HCC); Malignant neoplasm of ureter, unspecified laterality (HCC)Start: 01-31-2023 End: 77-86-6263Dacjqx outpatient visit 25 minutesGraeme Vazquez MD Work Phone: Hematology/OncologyComment on above:Malignant neoplasm of overlapping sites of bladder (HCC) (Primary Dx)Start: 01-23-2023 End: 98-15-7494Hyxxifmvkx hospital visit by physicianArrival Time Radiology Work Phone: Radiology Pet CTComment on above:Malignant neoplasm of overlapping sites of bladder (HCC) [C67.8]Start: 01-11-2023 End: 31-52-6021rcwjohkyxuYQ SERGIO SNEED .Facility:O1Tinat: 81-78-5888Yrpkwejls encounterMargot So RN Work Phone: Hematology/OncologyComment on above:Care Coordination (C1D1 Post Treatment Call)Start: 01-02-2023 End: 49-14-7478kyzaehvdbcRqrhv 14 [place] Work Phone: Hematology/OncologyComment on above:Malignant neoplasm of overlapping sites of bladder (HCC) (Primary Dx); Malignant neoplasm of right kidney, except renal pelvis (HCC); Malignant neoplasm of ureter, unspecified laterality (HCC)Start: 01-02-2023 End: 69-36-0930Cjkyos outpatient visit 25 minutesGraeme Vazquez MD Work Phone: Hematology/OncologyComment on above:Malignant neoplasm of overlapping sites of bladder (HCC) (Primary Dx); Malignant neoplasm of ureter, unspecified laterality (HCC)Start: 12-31-2022 ambulatoryMargot So RN Work Phone: Hematology/OncologyComment on above:Non-Chemotherapy Treatment (Pembrolizumab)Start: 20-35-0081Mmxbxbrqy Jesi Alarcon MD Work Phone: [facility] HospitalComment on above:Patient UpdateStart: 12-18-2022 End: 48-42-0599fnhbpqpmvmBfmpwvn R WATERSFacility:EU [place]kyStart: 12-17-2022 Telephone encounterLauren Mckeon RN Work Phone: Hematology/OncologyComment on above:Care Coordination (Reschedule appointment)Start: 12-08-2022 End: 33-12-2317dgqhjuhdutEO SERGIO SNEED .Facility:I3Zzmqj: 12-05-2022 End: 29-46-3863odmewqvalqJzfitpk R WATERSFacility:EU [place]kyStart: 12-05-2022 End: 30-69-7572Fwlguhn encounter procedureJian RODRIGUEZ [facility] [place] Start: 11-26-2022 End: 76-04-3164cvbghrdwzbXzcqr Abhyankar MD Work Phone: Hematology/OncologyComment on above:Malignant neoplasm of ureter, unspecified laterality (HCC) (Primary Dx)Start: 11-26-2022 End: 00-11-4844Zrwgfmj encounter Félix Vazquez MD Work Phone: SANDUSKYStart: 11-20-2022 End: 09-76-9991qcsgbafafaIglmol J Stein MD Work Phone: UrologyComment on above: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, unspecified laterality (HCC) (Primary Dx)Start: 11-20-2022 End: 68-26-3918Lwaipgvafnlh consultation with Harrison Bhatt MD Work Phone: [facility] MAINStart: 11-09-2022 End: 14-71-1247gdotjnstuvXI DOUGLAS HOY .Facility:Q5Cwsoe: 10-10-2022 End: 37-91-3425vkxovmxvliGazfgur Ditty Other [place] [facility] Other Start: 62-13-3171Ylpylruqp encounterCamerodonn ChuayFPG GastroenterologyStart: 09-26-2022 End: 19-55-3386utrnooiwhhAW SERGIO NSEED .Facility:E7Mftmr: 09-12-2022 End: 25-15-4475Lhyslol encounter Ang Saenz MD Work Phone: UrologyComment on above:Urothelial carcinoma (HCC) (Primary Dx)Start: 09-12-2022 End: 62-93-4997omtykjwemtXxrn Main 4 Work Phone: Pre AnesthesiaComment on above:Pre-op evaluation (Primary Dx); Hypertensive heart disease with heart failure (HCC); Gastro-esophageal reflux disease without esophagitis; Ulcerative pancolitis (HCC); Stage 3 chronic kidney disease, unspecified whether stage 3a or 3b CKD (HCC); 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, unspecified laterality (HCC)Start: 09-12-2022 End: 86-46-5230Yfyhlkoqf to [place] [address] Work Phone: [facility] MAINStart: 09-12-2022 End: 91-72-9624Uoqgnxvytsbtp examination [place] [address] Work Phone: [facility] AnesthesiaStart: 07-30-2022 End: 04-13-3912synmwcnsouBotvixe Dijuancarlos Other [place] [facility] Other Start: 27-39-0198Dgzfhkotg encounterCamtwyla NelsonFPG GastroenterologyStart: 00-81-6040wvepvlszpwVvfutj L Smith RNGlickman Urological &Start: 03-26-2022 End: 15-27-5036ttuywmtpmvLqfyr O'Donohue PA-C Work Phone: UrologyComment on above:Urothelial carcinoma (HCC) (Primary Dx)Start: 03-26-2022 End: 54-29-2770Piwbzaxsyxzg consultation with Lottie Tejada PA-C Work Phone: [facility] MAINStart: 14-23-4949wugrshorib Claire [facility] &Start: 03-13-2022 End: 35-32-1236mrtgpksixiHmcffv J Stein MD Work Phone: UrologyComment on above: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, unspecified laterality (HCC) (Primary Dx); Acute cystitis without hematuriaStart: 03-13-2022 End: 00-28-1977Izrmnvonaxyx consultation with Harrison Bhatt MD Work Phone: [facility] MAINStart: 03-08-2022 End: 29-34-6639gttyazqoqrPfcnc Komal Other [place] [facility] Other Start: 50-44-0336Zbzkre outpatient visit 25 minutes Augusto SanchezG GastroenterologyStart: 03-05-2022 End: 61-12-2937jvoiqocgulYasydxptk Kunte MD Work Phone: Hematology/OncologyComment on above:Malignant neoplasm of ureter, unspecified laterality (HCC) (Primary Dx)Start: 03-05-2022 End: 73-24-9807Rrbtcmw encounter procedureScristofer Perea MD Work Phone: SANDUSKYStart: 02-19-2022 End: 86-55-0686qnkxqwjvqlFqhoiYoni Maxwell PA-C Work Phone: Hematology/OncologyComment on above:Malignant neoplasm of ureter, unspecified laterality (HCC) (Primary Dx)Start: 02-19-2022 End: 87-91-9711Sveavib encounter procedureCorazon Maxwell PA-C Work Phone: SANDUSKYStart: 02-12-2022 End: 08-21-3318jsejqqladlDxcswessb Kunte MD Work Phone: Hematology/OncologyComment on above:Malignant neoplasm of ureter, unspecified laterality (HCC) (Primary Dx)Start: 02-12-2022 End: 44-41-7813Lgbseee encounter procedureScristofer Perea MD Work Phone: SANDUSKYStart: 02-05-2022 End: 70-13-2335irqjdeunusXhvobudpo Kunte MD Work Phone: Hematology/OncologyComment on above:Malignant neoplasm of ureter, unspecified laterality (HCC) (Primary Dx)Start: 02-05-2022 End: 04-47-8066Xuhdcve encounter procedureScristofer Perea MD Work Phone: SANDUSKYStart: 01-22-2022 End: 26-68-5571nxxsupeemcEfbep Alek Fam Work Phone: Hematology/OncologyComment on above:Malignant neoplasm of ureter, unspecified laterality (HCC) (Primary Dx)Start: 01-15-2022 End: 53-64-6734xabxkoykajRbuii M Musser PA-C Work Phone: Hematology/OncologyComment on above:Malignant neoplasm of ureter, unspecified laterality (HCC) (Primary Dx)Start: 01-15-2022 End: 08-45-4639Ujtuiyi encounter procedureCorazon Maxwell PA-C Work Phone: SANDUSKYStart: 01-08-2022 End: 52-94-6476xynbmtkznsAxeudfsmh Kunte MD Work Phone: Hematology/OncologyComment on above:Malignant neoplasm of ureter, unspecified laterality (HCC) (Primary Dx)Start: 01-08-2022 End: 16-17-6052Culhzeu encounter procedureScristofer Perea MD Work Phone: SANDUSKYStart: 07-08-2020 End: 36-42-6547Ckpghrvsdb hospital [facility] by physicianLev[facility] Work Phone: RadiologyComment on above: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, unspecified laterality (HCC) [C64.9]Start: 04-29-2018 End: 49-01-4111Cufxqjo encounterDEFAULT PHYSICIANFacility:[facility]tart: 04-21-2018 End: 98-72-4116Cfqogxz encounterDEFAULT PHYSICIANFacility:[facility] Procedures DateProcedureProcedure DetailPerforming ClinicianStart: 22-49-5561HXNNNZW Nikhil Avalos APRN-ABIOLA Work Phone: Start: 99-15-3552Ncvafy-up visitFollow-upADELINA FREEMANWELLStart: 11-27-1156Afvqix-up visitFollow-Lisa WUOPHERStart: 57-56-1115Dpvdjlak screenDOUGLAS HOYComment on above:Performed By: #### WCSUP #### [facility] ([facility]) [address] [place] [address] VIRStart: 66-71-7393Vvydl metabolic panel calcium totalPaul Lily FOUNTAIN Work Phone: Start: 18-25-7602Pjtkn panelBrett W Might GROUP PRACTICE PEDIATRICIAN - BUSINESS RECORDS MANAGER Work Phone: Start: 10-21-2024 End: 74-68-3295Pevrh metabolic panel calcium totalBrett W Might GROUP PRACTICE PEDIATRICIAN - BUSINESS RECORDS MANAGER Work Phone: Start: 81-75-1187Dm abdomen & pelvis w/contrast Haim Vazquez MD Work Phone: Start: 21-27-1987Qx thorax w/contrast Haim Vazquez MD Work Phone: Start: 90-73-1169Vycda count complete auto&auto difrntl wbcGraeme Vazquez MD Work Phone: Start: 58-03-3295Vobmyovmhp exam chest 2 Marilynn Santiago MD Work Phone: Start: 39-52-7893Eb abdomen & pelvis w/contrast Haim Vazquez MD Work Phone: Start: 01-85-0117Nh thorax w/contrast Haim Vazquez MD Work Phone: Start: 80-16-9722Xdnqk of troponin quantitativeSean Ray MDStart: 31-05-1434Rl thorax w/contrast materialSean Ray MDStart: 03-22-2024 Radiologic exam chest single viewSean Ray MDStart: 03-31-5108Bgwlm metabolic panel calcium totalSean Ray MDStart: 35-50-0228Zin routine ecg w/least 12 lds w/i&rSean Ray MDStart: 47-53-4637Hd abdomen & pelvis w/contrast materialHolly Wero GROUP PRACTICE PEDIATRICIAN.BUSINESS RECORDS MANAGER Work Phone: Start: 57-14-8264Tb thorax w/contrast materialHolly Wero GROUP PRACTICE PEDIATRICIAN.BUSINESS RECORDS MANAGER Work Phone: Start: 68-54-3874Nfxjw count complete auto&auto difrntl wbcHolly Wero GROUP PRACTICE PEDIATRICIAN.BUSINESS RECORDS MANAGER Work Phone: Start: 19-77-2455Ne abdomen & pelvis w/contrast materialGraeme Vazquez MD Work Phone: Start: 42-13-7296Ck thorax w/contrast Haim Vazquez MD Work Phone: Start: 02-40-4309Zl abdomen & pelvis w/contrast materialGraeme Vazquez MD Work Phone: Start: 21-94-9560So thorax w/contrast materialGraeme Vazquez MD Work Phone: Start: 89-19-2219Pt thorax w/o contrast materialHolly Wero GROUP PRACTICE PEDIATRICIAN.BUSINESS RECORDS MANAGER Work Phone: Start: 56-20-4748NRC screeningDR DI OCHOA .Comment on above:Performed By: #### IRON, PSASC, VITAD #### [facility] [address] [place] [address] Dr. Maddox Sancta Maria HospitalStart: 70-46-7902Sjneu dip stick/tablet reagent auto microscopy Bulk Order ProviderStart: 88-19-0023Kcwnxwtg screenGalen Bhatt MD Work Phone: Start: 72-39-3519Hdahnvu bacterial quanttative colony count urineRobann marie Bhatt MD Work Phone: Start: 93-80-9110Bf abdomen & pelvis w/o contrst 1/> body reRobert Benjamín Bhatt MD Work Phone: Start: 01-45-0743Zinskwzihql removal of ureteric stent Jian RODRIGUEZ Start: 84-69-4173Wdbyek biopsyJian RODRIGUEZ Comment on above:Right ureteroscopy, Right renal Wash for cytology, holmium laser of right renal tumor, Right stent placementStart: 83-11-4413Shioruvohpqn of mitomycin C into bladderPatrick RODRIGUEZ Comment on above:03/05/2019 , 03/30/2019Start: 02-05-2019 Transurethral resection of bladder neoplasmJian RODRIGUEZ Start: 86-48-1666YzsdefqqsbzfchcpyhKivulnl [employer] Comibhu on above:left sideStart: 77-65-9954Xvozza of bladderJian [employer] Comment on above:05/15/2018 * Cysto, bladder bx, fulguration, left ureteral dilation, left ureteroscopy, ureteral biopsy, left pyeloscopy, right ureteroscopy, left stent placement with clot evacuation. 04/05/2016* cystoscopy, bilateral rg, bladder biopsy, fulguration.Start: 95-12-7178UgyhmrnvyqAwdwlac [employer] Comzpya on above:05/10/2016 * Cysto, rigid ureteral dilation, ureteroscopy, pyeloscopy, basket extraction of renal stone, left stent placementStart: 44-02-7061Ddplti biopsyJian [employer] Comedyb on above:01/10/2012 * Cysto, left stent change, ureteroscopy, renal biopsy x 3Start: 30-48-2687Ajdboabvwrrt of BCG into the [employer] Comvqtp on above:BCG # 6 09/18/10 BCG #3 02/18/2012 BCG #3 12/09/2012 BCG #2 12/16/2017Start: 33-92-8310Yqwiwbi of stentJian [employer] Comqgdl on above:left side, 08/30/2010, 05/29/2016Start: 69-89-1735Oachzqxotd and transurethral resection of bladder tumorJian RODRIGUEZ Comjidy on above:08/10/2010 * Cysto, TURBT/TURP/left ureteroscopy, left stent placementStart: 80-16-3880GyhhjzkrfcYlgkqgq [employer] Comment on above:07/21/2010, 11/20/2010, 02/19/2011, 05/29/2011, 09/11/2011, 11/27/2011, 04/25/2012, 08/04/2012, 10/21/2012, 07/20/2013, 01/18/2014, 11/23/2014, 12/05/2015, 11/27/2016, 06/04/2017, 11/19/2017, 03/11/2018, 09/23/2018, 12/31/2017Decompression of median [email or web address] Dilation of [email or web address] Comycax on above:12/09/2012 * cysto/UD with pelaez soundsHernia [email or web address] Lumbar spinal [email or web address] Transurethral [email or web address] Comment on above:08/10/2010 * turp 12/27/2011 * cystoscopy, trev rg, ureteroscopy, bladder bx, TURP and left stent placement Plan of Treatment DateCare ActivityDetailAuthorStart: 08-50-9509MGxA,Tdap and Td Vaccines (3 - Td or Tdap)DTaP,Tdap and Td Vaccines (3 - Td or Tdap)[facility] SystemStart: 18-05-8951KGdU/Tdap/Td vaccine (2 - Tdap)DTaP/Tdap/Td vaccine (2 - Tdap)[facility] SYSTEMStart: 62-46-4315Bayni microalbumin profileClefirelands regional medical center Clinic Start: 23-07-0387Qlcvyzif ScreeningDiabetes ScreeningClefirelands regional medical center ClinicStart: 18-66-5731Stdxqftm ScreeningDiabetes ScreeningClefirelands regional medical center ClinicStart: 10-16-2027 Diabetes ScreeningDiabetes ScreeningClefirelands regional medical center ClinicStart: 89-76-0122Qoefrrdj ScreeningDiabetes ScreeningClefirelands regional medical center ClinicStart: 85-98-6242Fkftaman Screening Diabetes ScreeningClefirelands regional medical center ClinicStart: 20-53-3833Fynvjspf ScreeningDiabetes ScreeningKettering Health Troytart: 46-42-1188Trbloyhp ScreeningDiabetes Screening [facility]: 43-91-8069Yohjmasg ScreeningDiabetes ScreeningKettering Health Troytart: 26-98-8096Yqqfzxxt ScreeningDiabetes ScreeningKettering Health [facility] Memorial Start: 57-50-8154Rtvxlxkj ScreeningDiabetes ScreeningKettering Health Troytart: 28-87-1561Yibnozkp ScreeningDiabetes ScreeningKettering Health Troytart: 11-02-2026 Diabetes ScreeningDiabetes ScreeningKettering Health [facility]: 08-99-2018Esxvhvwi ScreeningDiabetes ScreeningKettering Health Troytart: 37-87-8332Klgltlia Screening Diabetes ScreeningKettering Health Troytart: 97-21-6528Hvubkhhe ScreeningDiabetes ScreeningKettering Health Troytart: 26-60-4548Czgqoueo ScreeningDiabetes Screening [facility]: 75-29-5001Qwsdzlyl ScreeningDiabetes ScreeningKettering Health Troytart: 49-07-7798GIVKKYGX SCREENDIABETES SCREENKettering Health Troytart: 19-74-7820VDHZZJWY SCREENDIABETES SCREENKettering Health Troytart: 40-76-6178Toxvywt ScreeningTobacco ScreeningLouis Stokes Cleveland VA Medical Centerca [facility] SystemStart: 45-68-1128Igpfnkz ScreeningTobacco ScreeningFormerly [facility], [facility] CAretart: 21-42-3594PDYTXKOJ SCREENDIABETES SCREENKettering Health Troytart: 87-72-6051XROQZJON SCREENDIABETES SCREENKettering Health Troytart: 73-81-0789HLRPCLOC SCREENDIABETES SCREENKettering Health Troytart: 65-60-9320Rfvxeamdnt ScreenDepression ScreenBon Secours Adams County HospitalStart: 43-47-5866AQUGGFEN SCREENDIABETES SCREENKettering Health Troytart: 07-18-0484GYMSJDZI SCREENDIABETES SCREENKettering Health Troytart: 11-02-2025 End: 32-67-2737Ldyyzcp encounter lsjazeuuw19/20/2026 8:40 AM EST Office Visit [facility] [address] [place] [phone] Might, Marilu W, GROUP PRACTICE PEDIATRICIAN - BUSINESS RECORDS MANAGER [address] [facility] [place] [address] AWV and 6 monthPro[facility] TiffinComment on above:AWV and 6 monthStart: 81-77-1124Qjnfig Wellness Visit (Medicare)Annual Wellness Visit (Medicare)Bon Opendisc [facility] HospitalStart: 56-11-8449XFBTR-19 Vaccine ()COVID-19 Vaccine ( season)Bon [facility] Medical CenterHaitaobei [facility] HospitalComment on above:Postponed from 06/14/2024 (Patient Refused)Start: 47-27-4377Arzwlvsvr vaccinationBon [facility] Medical CenterHaitaobei [facility] HospitalComment on above: Postponed from 05/14/2024 (Patient Refused)Postponed from 05/14/2025 (Patient Refused)Start: 55-24-3397Mmzan panelLipidsBon [facility] HealthStart: 86-20-6478FFPAJXIM SCREENDIABETES SCREENClefirelands regional medical center ClinicStart: 06-14-2025 Influenza vaccinationKettering Health Troytart: 05-31-2025 End: 68-94-7682Jefskfq encounter svgjindsi62/18/2025 8:00 AM EDT Office Visit [address] [phone] Harpreet Avalos GROUP PRACTICE PEDIATRICIAN-BUSINESS RECORDS MANAGER [address] [place] [address] [facility] Centertart: 05-17-2025 End: 87-05-9547Zbkpkhj encounter towsfggnp95/04/2025 8:30 AM EDT Office Visit [address] [phone] Harpreet Avalos, GROUP PRACTICE PEDIATRICIAN-BUSINESS RECORDS MANAGER [address] [facility] [place] [address] [facility] Centertart: 05-08-2025 End: 91-56-2183Thmlsjb encounter qfwgvzzuw09/26/2025 10:30 AM EDT Office Visit [facility] [address] [place] [phone] Chago Hernandez, GROUP PRACTICE PEDIATRICIAN-BUSINESS RECORDS MANAGER [address] [place] [address] [facility] Start: 04-30-2025 End: 56-84-6939Nbowdr-up tirjbjxdc99/18/2025 9:40 AM EDT Visit (SP) Office Hematology/Oncology [address] [place], [place] [phone] Graeme Vazquez MD [address] [place] [address] 6 month follow up after ct and labHematology/OncologyComment on above:6 month follow up after ct and labStart: 04-27-2025 End: 37-10-5669Ahgaxlw encounter vrzsyrhnd70/15/2025 8:40 AM EDT Office Visit [facility] [address] [place] [phone] Marilu Roach, GROUP PRACTICE PEDIATRICIAN - BUSINESS RECORDS MANAGER [address] [place] [address] 6 monthsMer[facility] TiffinComment on above:6 monthsStart: 04-23-2025 End: 44-13-0135Lctklaz encounter uwaqrlbmu18/11/2025 7:45 AM EDT Appointment Radiology Pet CT [address] [place] [address] Ct CAP with contrast and labRadiology Pet CTComment on above:Ct CAP with contrast and lab Start: 04-22-2025 End: 30-10-0220FSX W Auto Differential panel - BloodCOMPLETE BLOOD COUNT AND DIFFERENTIAL Lab Routine Malignant 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) Malignant neoplasm of urinary bladder, unspecified site (HCC) CKD (chronic kidney disease), stage V (HCC) Expected: 04/22/2025 (Approximate), Expires: 10/23/2025leveland ClinicComment on above:Expected: 04/22/2025 (Approximate), Expires: 10/23/2025Start: 04-22-2025 End: 28-71-4641Rtazhgmbcfdre metabolic 2000 panel - Serum or PlasmaCOMPREHENSIVE METABOLIC PANEL Lab Routine Malignant 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) Malignant neoplasm of urinary bladder, unspecified site (HCC) CKD (chronic kidney disease), stage V (HCC) Expected: 04/22/2025 (Approximate), Expires: 10/23/2025[facility] ClinicComment on above:Expected: 04/22/2025 (Approximate), Expires: 10/23/2025Start: 04-22-2025 End: 55-73-0914TI Abdomen and Pelvis W contrast IVCT ABD/PEL W IVCON Radiology Routine Malignant 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) Malignant neoplasm of urinary bladder, unspecified site (HCC) CKD (chronic kidney disease), stage V (HCC)Malignant neoplasm of ureteric orifice (HCC) Expected: 04/22/2025 (Approximate), Expires: 11/22/2025[facility] Work Phone: Comment on above:Expected: 04/22/2025 (Approximate), Expires: 11/22/2025Start: 04-22-2025 End: 40-99-4991NX Chest W contrast IVCT CHEST W IVCON Radiology Routine Malignant 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) Malignant neoplasm of urinary bladder, unspecified site (HCC) CKD (chronic kidney disease), stage V (HCC) Malignant neoplasm of ureteric orifice (HCC) Expected: 04/22/2025 (Approximate), Expires: 11/22/2025[facility] ClinicComment on above:Expected: 04/22/2025 (Approximate), Expires: 11/22/2025Start: 25-68-6258Xpxviidkco Screen Depression ScreenBon [facility] HealthStart: 57-80-0520Uynfqyzyusj Syncytial Virus (RSV) or age 60 yrs+ (1 - 1-dose 75+ series)Respiratory Syncytial Virus (RSV) or age 60 yrs+ (1 - 1-dose 75+ series)Bon Madison HealthComment on above:Postponed from 2014 (Patient Refused)Start: 41-06-4647Iwcmenxw vaccine (2 of 2)Shingles vaccine (2 of 2)Bon Madison HealthComment on above:Postponed from 10/07/2023 (Patient Refused)Start: 04-22-2025 End: 38-42-9522CQX W/REFLEX FT4TSH W/REFLEX FT4 Lab Routine Disorder of thyroid Expected: 04/22/2025 (Approximate), Expires: 07/22/2025[place] ClinicComment on above:Expected: 04/22/2025 (Approximate), Expires: 07/22/2025Start: 55-94-7617RYUZKMYY SCREENDIABETES SCREENKettering Health Troytart: 03-05-2025 DIABETES SCREENDIABETES SCREENKettering Health Troytart: 74-65-3789UODAVQBD SCREEN DIABETES SCREENKettering Health Troytart: 60-14-3468XOPNBDFF SCREENDIABETES SCREEN Rea ClinicStart: 27-00-0600EPXELZCV SCREENDIABETES SCREENKettering Health Greene Memorial Start: 77-88-9680EBPHJQQM SCREENDIABETES SCREENKettering Health Troytart: 01-15-2025 DIABETES SCREENDIABETES SCREENKettering Health Troytart: 22-86-3389SGHXLKBU SCREEN DIABETES SCREENKettering Health Troytart: 10-27-2024 End: 95-15-7618Kmxxajp encounter ruacffmxw77/14/2025 9:00 AM EST Office Visit [facility] [address] [place] [phone] Marilu Roach, GROUP PRACTICE PEDIATRICIAN - BUSINESS RECORDS MANAGER [address] [place] [address] 6 mos w/Labs awvMuniversity hospitals [facility] Primary Care TiffinComment on above:6 mos w/Labs awvStart: 10-23-2024 End: 71-57-9582Rmgakl-up ncgzopfxt10/10/2025 9:40 AM EST Visit (SP) Office Hematology/Oncology [address] [place] [address] [place], [place] [phone] Graeme Vazquez MD [address] [place] [address] 9 week follow up for ct and lab reviewHematology/Oncology Comment on above:9 week follow up for ct and lab reviewStart: 10-16-2024 End: 93-17-9879RYZ W Auto Differential panel - BloodCOMPLETE BLOOD COUNT AND DIFFERENTIAL Lab Routine Malignant neoplasm of overlapping sites of bladder (HCC) Expected: 10/16/2024 (Approximate), Expires: 08/21/2025[facility] Comment on above:Expected: 10/16/2024 (Approximate), Expires: 08/21/2025Start: 10-16-2024 End: 03-78-7778Espmcijpufbhi metabolic 2000 panel - Serum or PlasmaCOMPREHENSIVE METABOLIC PANEL Lab Routine Malignant neoplasm of overlapping sites of bladder (HCC) Expected: 10/16/2024 (Approximate), Expires: 08/21/2025[facility] Comment on above:Expected: 10/16/2024 (Approximate), Expires: 08/21/2025Start: 10-16-2024 End: 20-17-5984YT Abdomen and Pelvis W contrast IVCT ABD/PEL W IVCON Radiology Routine Malignant neoplasm of overlapping sites of bladder (HCC) Expected: 10/16/2024 (Approximate), Expires: 09/20/2025[facility] Work Phone: Comment on above:Expected: 10/16/2024 (Approximate), Expires: 09/20/2025Start: 10-16-2024 End: 46-61-5330TS Chest W contrast IVCT CHEST W IVCON Radiology Routine Malignant neoplasm of overlapping sites of bladder (HCC) Expected: 10/16/2024 (Approximate), Expires: 09/20/2025[facility] HospitalComment on above:Expected: 10/16/2024 (Approximate), Expires: 09/20/2025Start: 10-16-2024 End: 52-23-1865Qpmmekm encounter halzuihgc56/03/2025 7:45 AM EST Appointment Radiology Pet CT [address] [place] [address] CAP with contrast and labRadiology Pet CTComment on above:[address] CAP with contrast and labStart: 64-89-0130Oaierzk Directive DiscussionAdvance Directive DiscussionCleveland ClinicStart: 07-06-2024 End: 24-47-8216Bnxwjp-up encounterHematology/OncologyComment on above:follow up and chemotx KeytrudaStart: 07-06-2024 End: 79-76-7384Bikrwal encounter /23/2024 8:45 AM EDT Office Visit 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), 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, unspecified site (HCC) Disorder of thyroid Abnormal blood chemistry Expected: 06/29/2024 (Approximate), Expires: 09/28/2024[facility] ClinicComment on above:Expected: 06/29/2024 (Approximate), Expires: 09/28/2024Start: 06-29-2024 End: 40-55-4705Asehcudzhxysq metabolic 2000 panel - Serum or PlasmaCOMPREHENSIVE METABOLIC PANEL Lab Routine 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), 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, unspecified site (HCC) Disorder of thyroid Abnormal blood chemistry Expected: 06/29/2024 (Approximate), Expires: 09/28/2024[facility] ClinicComment on above:Expected: 06/29/2024 (Approximate), Expires: 09/28/2024Start: 06-29-2024 End: 99-47-0394Zhrbtwhp [Mass/volume] in Serum or PlasmaCORTISOL, SERUM Lab Routine Malignant 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 ki dney disease), 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, unspecified site (HCC) Disorderof thyroid Abnormal blood chemistry Expected: 06/29/2024 (Approximate), Expires: 09/28/2024[facility] ClinicComment on above:Expected: 06/29/2024 (Approximate), Expires: 09/28/2024Start: 06-29-2024 End: 34-41-6523QP Abdomen and Pelvis W contrast IVCT ABD/PEL W IVCON Radiology Routine 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), 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, unspecified site (HCC)Disorder of thyroid Abnormal blood chemistry Expected: 06/29/2024 (Approximate), Expires: 06/17/2025[facility] Work Phone: Comment on above:Expected: 06/29/2024 (Approximate), Expires: 06/17/2025Start: 06-29-2024 End: 34-44-9902ZX Chest W contrast IVCT CHEST W IVCON Radiology Routine 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), 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, unspecified site (HCC) Disorder of thyroid Abnormal blood chemistry Expected: 06/29/2024 (Approximate), Expires: 06/17/2025[facility] ClinicComment on above:Expected: 06/29/2024 (Approximate), Expires: 06/17/2025Start: 06-29-2024 End: 12-98-7044Mqxxogzswr A1c in BloodHEMOGLOBIN A1C Lab Routine 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), 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, unspecified site (HCC) Disorder of thyroid Abnormal blood chemistry Expected: 06/29/2024 (Approximate), Expires: 09/28/2024[facility] ClinicComment on above:Expected: 06/29/2024 (Approximate), Expires: 09/28/2024Start: 06-29-2024 End: 45-95-0993Ctuwkuwmsxi [Units/volume] in Serum or PlasmaTHYROID STIMULATING HORMONE Lab Routine 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), 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, unspecified site (HCC) Disorder of thyroid Abnormal blood chemistry Expected: 06/29/2024 (Approximate), Expires: 09/28/2024[facility] ClinicComment on above: Expected: 06/29/2024 (Approximate), Expires: 09/28/2024Start: 06-29-2024 End: 08-33-8379Isldcwf encounter ssspnuvin98/16/2024 8:45 AM EDT Appointment Radiology Pet CT [address] [place] [address] [place] [address] ct cap Radiology Pet CTComment on above:ct capStart: 25-71-2212VQKTX-19 Vaccine ( season)COVID-19 Vaccine ()[facility] Start: 35-11-8925XENEE-19 Vaccine ()COVID-19 Vaccine ( season)[facility] SystemStart: 65-34-5053Cteqm-19 Vaccine ()Covid-19 Vaccine ()[facility]: 74-74-3569Qaxsv-19 Vaccine ()Covid-19 Vaccine ()[facility]: 36-98-1216Fgrejbdpx vaccinationKettering Health Greene Memorial Start: 70-83-0901Hkwdaasol vaccinationWELLMONT HEALTH SYSTEMStart: 04-22-2024 End: 10-38-4276Textrdd encounter piqjpockj11/10/2024 2:00 PM EDT Office Visit [facility] [address] [place] [phone] Marilu Roach, GROUP PRACTICE PEDIATRICIAN - BUSINESS RECORDS MANAGER [address] [place] [address] establish care- okay per [facility] TiffinComment on above:establish care- okay per mariluStart: 04-21-2024 End: 30-80-5945Awbweqp encounter wakmiuitc94/09/2024 12:30 PM EDT Office Visit [facility] Part of [address] [place] [address] Jenni De La Rosa, GROUP PRACTICE PEDIATRICIAN - BUSINESS RECORDS MANAGER [address] [facility] [address] [place] [address] [facility] Part of [facility] HospitalComment on above:gastritisStart: 03-22-2024 Annual Wellness Visit (Medicare)Annual Wellness Visit (Medicare)EWA MENDEZMARCIN [facility]ISON HEALTHStart: 03-20-2024 End: 49-74-6092Hhmafk-up encounterHematology/OncologyComment on above:follow up and chemotx KeytrudaStart: 03-20-2024 End: 56-37-1234Fhaamhs encounter pfafhdwns50/07/2024 8:30 AM EDT Office Visit [facility] [address] [place] [address] [place] [address] Labs This Day Per [facility] Staff MessageNortCorewell Health Greenville Hospital LaboratoryComment on above:Labs This Day Per [facility] Staff Message Start: 02-05-2024 End: 14-65-1568qpakmdjvcs59/24/2024 9:15 AM EDT [facility] Center Hematology/Oncology [address] [place] [address] chemotx KeytrudaHematology/OncologyComment on above:chemotx KeytrudaStart: 02-05-2024 End: 13-26-3771Lnmgis-up zrjiiwnnf47/24/2024 9:00 AM EDT Visit (SP) Office Hematology/Oncology [address] [facility] [place] [place], [place] [phone] Graeme Vazquez MD [address] [place] [address] 6 week follow up w/ possible KeytrudaHematology/Oncology Comment on above:6 week follow up w/ possible KeytrudaStart: 12-24-2023 End: 83-78-5690FNA W Auto Differential panel - BloodCBC + DIFF Lab Routine 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), stage V (HCC) Abnormal weight loss Malignant neoplasm of urinary bladder, unspecified site (HCC) Expected: 12/24/2023, Expires: 03/24/2024 [facility] Work Phone: Comment on above:Expected: 12/24/2023, Expires: 03/24/2024Start: 12-24-2023 End: 84-64-2255Nsosrvmtqfzld metabolic 2000 panel - Serum or PlasmaCOMP METABOLIC PANEL Lab Routine 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), stage V (HCC) Abnormal weight loss Malignant neoplasm of urinary bladder, unspecified site (HCC) Expected: 12/24/2023, Expires: 03/24/2024[facility] Work Phone: Comment on above:Expected: 12/24/2023, Expires: 03/24/2024Start: 65-34-7827Xmjvwqd Directive DiscussionAdvance Directive DiscussionCleProMedica Memorial Hospitaltart: 23-48-1920Kysbektoog Health ScreeningBehavioral Health ScreeningKettering Health Troytart: 38-85-5848Puqgdiqmsb Assessment Depression AssessmentKettering Health Troytart: 70-53-6467Gjunnuajdewhrt of varicella zoster vaccineZoster (Shingles) Vaccine (2 of 2)Designer Material SystemStart: 43-58-2714Blzwuzft vaccine (2 of 2)Shingles vaccine (2 of 2)[facility] SYSTEMStart: 96-25-1090Fpyncrql Vaccine (2 of 2)Shingrix Vaccine (2 of 2)[facility]: 08-22-2023 End: 26-91-9528Bj abdomen & pelvis w/contrast materialCT ABD/PEL W IVCON Radiology Routine Malignant neoplasm of overlapping sites of bladder (HCC) Expected: 08/22/2023 (Approximate), Expires: 08/16/2024[facility] Work Phone: Comment on above:Expected: 08/22/2023 (Approximate), Expires: 08/16/2024Start: 08-22-2023 End: 69-11-5109BD CHEST W IVCONCT CHEST W IVCON Radiology Routine Malignant neoplasm of overlapping sites of bladder (HCC) Expected: 08/22/2023 (Approximate), Expires: 08/16/2024[facility] Work Phone: Comment on above:Expected: 08/22/2023 (Approximate), Expires: 08/16/2024Start: 07-19-2023 End: 71-39-6702YWZ W Auto Differential panel - BloodCBC + DIFF Lab Routine Malignant neoplasm of overlapping sites of bladder (HCC) Malaise and fatigue Expected: 07/19/2023, Expires: 09/18/2023[facility] Work Phone: Comment on above:Expected: 07/19/2023, Expires: 09/18/2023Start: 07-19-2023 End: 76-49-2886Nwihckipsawbp metabolic 2000 panel - Serum or PlasmaCOMP METABOLIC PANEL Lab Routine Malignant neoplasm of overlapping sites of bladder (HCC) Malaise and fatigue Expected: 07/19/2023, Expires: 09/18/2023[facility] Work Phone: Comment on above:Expected: 07/19/2023, Expires: 09/18/2023Start: 07-19-2023 End: 57-15-9822Ncoktgxewfo [Units/volume] in Serum or PlasmaTSH BLD Lab Routine Malignant neoplasm of overlapping sites of bladder (HCC) Malaise and fatigue Exp ected: 07/19/2023, Expires: 09/18/2023[facility] Work Phone: Comment on above:Expected: 07/19/2023, Expires: 09/18/2023Start: 49-90-8941DIXXS-19 Vaccine ( season)COVID-19 Vaccine ( season)[facility]: 71-75-6212Gqwbx-19 Vaccine ( season)Covid-19 Vaccine ( season)[facility]: 77-08-7766Hsgzyzhiw vaccinationK[facility]tering Health [facility]: 04-25-2023 End: 93-94-5250Ojfmekmvn (T4) free [Mass/volume] in Serum or PlasmaTogus Va [facility] Center Work Phone: Comment on above:Expected: 04/25/2023, Expires: 06/25/2023Start: 04-25-2023 End: 11-73-3362Updvimpfwirfpjss (T3) [Mass/volume] in Serum or PlasmaTogus Va Medical Center Work Phone: Comment on above:Expected: 04/25/2023, Expires: 06/25/2023Start: 12-19-2022 End: 96-89-9220Hbrus function 2000 panel - Serum or PlasmaRENAL FUNCTION PANEL Lab Routine CELSO (acute kidney injury) (HCC) Expected: 12/19/2022, Expires: [facility] Work Phone: Comment on above:Expected: 12/19/2022, Expires: 02/18/2023Start: 33-36-0184NHZGLDI DIRECTIVE DISCUSSIONADVANCE DIRECTIVE DISCUSSIONKettering Health [facility]: 55-97-7960PJRUGKIQRA ASSESSMENTDEPRESSION ASSESSMENTK[facility]: 25-87-3587Ohoaavsdd vaccinationK[facility]tering Health [facility] Start: 03-13-2022 End: 08-99-1898VDC COMPLETEECG COMPLETE ECG Routine 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, unspecified laterality (HCC) Expected: 03/13/2022, Expires: 03/13/2023[facility] Work Phone: Comment on above:Expected: 03/13/2022, Expires: 03/13/2023Start: 02-19-2022 End: 54-22-1885QKC W Auto Differential panel - BloodCBC + DIFF Lab Routine Malignant neoplasm of ureter, unspecified laterality (HCC) Expected: 02/19/2022, Expires: 04/21/2022[facility] Work Phone: Comment on above:Expected: 02/19/2022, Expires: 04/21/2022tart: 02-19-2022 End: 80-31-3680Kqxxeceumowhe metabolic 2000 panel - Serum or PlasmaCOMP METABOLIC PANEL Lab Routine Malignant neoplasm of ureter, unspecified laterality (HCC) Expected: 02/19/2022, Expires: 04/21/2022[facility] Work Phone: Comment on above:Expected: 02/19/2022, Expires: 2Start: 01-22-2022 End: 48-30-5884QYB W Auto Differential panel - BloodCBC + DIFF Lab Routine Malignant neoplasm of ureter, unspecified laterality (HCC) Expected: 01/22/2022, Expires: 03/24/2022[facility] Work Phone: Comment on above:Expected: 01/22/2022, Expires: 03/24/2022tart: 01-22-2022 End: 07-73-3244Mfjrljfopfkhz metabolic 2000 panel - Serum or PlasmaCOMP METABOLIC PANEL Lab Routine Malignant neoplasm of ureter, unspecified laterality (HCC) Expected: 01/22/2022, Expires: 03/24/2022[facility] Work Phone: Comment on above:Expected: 01/22/2022, Expires: 03/24/2022tart: 81-42-0677IOCIA-19 VACCINE (4 - Booster for Pfizer series) COVID-19 VACCINE (4 - Booster for Pfizer series)[facility]: 16-12-7621AZRKD-19 VACCINE (4 - Booster for Pfizer series)COVID-19 VACCINE (4 - Booster for Pfizer series)[facility]: 82-78-2698TGDJQ-19 VACCINE (6 - Pfizer series)COVID-19 VACCINE (6 - Pfizer series)[facility]: 52-83-0835XUNKJPB DIRECTIVE DISCUSSIONADVANCE DIRECTIVE DISCUSSIONK[facility]: 15-04-8765UHSCEAFLMD ASSESSMENTDEPRESSION ASSESSMENTCleProMedica Memorial Hospitaltart: 05-65-6060Gmmtrqgvz vaccinationINFLUENZA (#1)[facility]: 87-83-3910ZRLJBFWZGGAN: 65+ (3 - PPSV23 or PCV20)PNEUMOCOCCAL: 65+ (3 - PPSV23 or PCV20)[facility]: 45-31-9368Qcnoe panelLipidsBON [facility] Systemart: 96-00-2741HYY Vaccine (1 - 1-dose 75+ series)RSV Vaccine (1 - 1- dose 75+ series)[facility]: 62-62-4817Roonj microalbumin profile DTAP,TDAP,TD (1 - Tdap)[facility]: 07-01-2005Medicare Annual Wellness VisitMedicare Annual Wellness VisitKettering Health [facility]: 67-17-6097Rtba Risk ScreeningFall Risk ScreeningProRegency Hospital Cleveland Easttart: 98-90-4210Mzmvxnypf B Vaccine (1 of 3 - Risk 3-dose series)Hepatitis B Vaccine (1 of 3 - Risk 3-dose series)[facility]: 20-29-5912Scgnrdaonsa Syncytial Virus (RSV) or age 60 yrs+ (1 - 1-dose 60+ series)Respiratory Syncytial Virus (RSV) or age 60 yrs+ (1 - 1-dose 60+ series)[facility]: 21-38-1807BIJ Vaccine (1 - 1-dose 60+ series)RSV Vaccine (1 - 1-dose 60+ series) [facility]: 43-64-7544XXLKRUFO VACCINE (1 of 2)SHINGRIX VACCINE (1 of 2)[facility]: 38-87-1945Gfhvjonto A Vaccine (1 of 2 - Risk 2-dose series)Hepatitis A Vaccine (1 of 2 - Risk 2-dose series)[facility]: 29-36-7629GKMCHVXF VACCINE (1 of 2)SHINGRIX VACCINE (1 of 2)[facility] Start: 23-97-9886Nhppgfx ScreeningAnxiety ScreeningKettering Health [facility]: 12-79-9897Qtvqkdigxs ScreeningDepression ScreeningKettering Health [facility]: 70-20-5245RQC Vaccine (1 of 2 - Risk 2-dose series)MMR Vaccine (1 of 2 - Risk 2- dose series)[facility]: 86-79-0626Nzmrdqwgsg ScreenDepression Screen BON [facility]art: 29-78-8189Gufzpvklkq ScreeningDepression ScreeningFormerly [facility], [facility] CAretart: 74-69-1796Vumsfmttwuvkb B Vaccine: Consider Based On Risk (1 of 4 - Increased Risk)Meningococcal B Vaccine: Consider Based On Risk (1 of 4 - Increased Risk)[facility] End: 93-97-2957Fv abdomen & pelvis w/contrast materialCT ABD/PEL W IVCON Radiology Routine Malignant neoplasm of overlapping sites of bladder (HCC) 1 Occurrences starting 05/16/[address] [place] [address] Work Phone: Comment on above:1 Occurrences starting 05/16/2023 until 06/14/2024 End: 72-78-7694BA Abdomen and Pelvis W contrast IVCT ABD/PEL W IVCON Radiology Routine Malignant neoplasm of urinary bladder, unspecified site (HCC) 1 Occurrences starting 12/20/[address] [place] [address] Work Phone: Comment on above:1 Occurrences starting 12/20/2023 until 01/18/2025 End: 94-62-4420RS Chest W contrast IVCT CHEST W IVCON Radiology Routine Malignant neoplasm of urinary bladder, unspecified site (HCC) 1 Occurrences starting 12/20/[address] [place] [address] Work Phone: Comment on above:1 Occurrences starting 12/20/2023 until 01/18/2025 End: 97-84-0783YX CHEST W IVCONCT CHEST W IVCON Radiology Routine Malignant neoplasm of overlapping sites of bladder (HCC) 1 Occurrences starting 05/16/[address] [place] [address] Work Phone: Comment on above:1 Occurrences starting 05/16/2023 until 06/14/2024 End: 31-77-7467Mqgxogb, Wound (with Gram Stain)[facility] Network ServicesComment on above:1 Occurrences starting 01/04/2025 until 01/04/2025ECG COMPLETEECG COMPLETE ECG Routine Pre-op evaluation 09/12/2022 11:47 AM [facility] Work Phone: ekg 12 LeadEKG 12 Lead ECG STAT 03/22/2024 5:52 PM EDT [facility] [employer] [facility] HOSPITALREFERRAL FOR ADDITIONAL BIOMARKER AND MOLECULAR TESTING REFERRAL FOR ADDITIONAL BIOMARKER AND MOLECULAR TESTING Lab Routine Malignant neoplasm of ureter, unspecified laterality (HCC) 12/03/2022 9:12 AM [facility] Work Phone: [facility] Immunizations Immunization DateImmunizationNotesCare LvfaiujrXtsjwgew13-67-0058iclbic vaccine recombinantChair Bent Work Phone: [facility] MemorialTdqrwg12-42-9046mkmktu vaccine, unspecified formulationKatherine Ball GROUP PRACTICE PEDIATRICIAN-BUSINESS RECORDS MANAGER Work Phone: [facility] HospitalLwvflp48-60-2966mlsljsknyo, tetanus toxoids and pertussis vaccineChair Bent Work Phone: [facility] MemorialRsitsm79-06-0429CZVI-FxO-9 (COVID-19) mRNA BNT-162b2 [employer] [facility]02-13-2021SARS-CoV-2 (COVID-19) mRNA BNT-162b2 [employer] [facility]01-23-2021SARS-CoV-2 (COVID-19) mRNA BNT-162b2 [employer] [facility] 687320-27-2015influenza nasal, unspecified formulationChair [facility] Work Phone: [facility] MemorialRoemuq05-11-5707ruymftesq virus vaccine, unspecified formulationPaPostSharp Technologies [facility] 687320-27-2015influenza, intradermal, quadrivalent, preservative free, injectableSiwally Perea MD Work Phone: [facility] MemorialYmyunu18-46-9518uuxrhakgedbe conjugate vaccine, 13 valCamryn Perea MD Work Phone: [facility] MemorialJtqzme38-02-7622vgntquacgodn polysaccharide vaccine, 23 valCamryn Perea MD Work Phone: [facility] MemorialVjlivm52-17-5014ofmpjiy and diphtheria toxoids, adsorbed, preservative free, for adult use (2 Lf of tetanus toxoid and 2 Lf of diphtheria toxoid)Jian JENNIFER [facility]04-04-2013tetanus and diphtheria toxoids, adsorbed, preservative free, for adult use (5 Lf of tetanus toxoid and 2 Lf of diphtheria toxoid)Soren Perea MD Work Phone: [facility] MemorialByqaim07-71-0711phfmkkb and diphtheria toxoids, not adsorbed, for adult useLeni Santiago MD Work Phone: bShenandoah Memorial HospitalNEGATED: Highlighted row has not occurred!99-85-7890djowtsxxw, injectable, quadrivalent, preservative free Harpreet Avalos APRN-BUSINESS RECORDS MANAGER Work Phone: [facility] SystemComment on above:Deferred: Patient Refused Payers DatePayer CategoryPayerPolicy [id number] Health Insurance [id number] [id number] 2018 Private Health [id number] 44-89-1591Xgsgpgl Care Other (unspecified)[facility] [id number] 2005MedicareMEDICARE MEDICARE A AND B [id number] 2005-[facility] [phone] [place] [address] [id number] [id number] 1960Medicare [id number] [id number] [id number] 1960Unknown [id number] 2.0.1.924100.3.579.2. [id number] 2.0.1.184421.3.57[id number] 2..1.435804.3.57[id number] 2.840.1.544482.3.57[id number] 2.0.1.841633.3.57[id number] 2.16840.1.124321.3.57[id number] 2.840.1.001172.3.57[id number] 2.16.840.1.885953.3.57[id number] 2.16.840.1.565356.3.57[id number] 2.16.840.1.345811.3.57[id number] 2.16.840.1.681046.3.57[id number] 2.16.840.1.141442.3.57[id number] 2.16.840.1.330093.3.57[id number] 2.16.840.1.524068.3.57[id number] 2.16.840.1.883412.3.57[id number] 2.16.840.1.871581.3.57[id number] 2.16.840.1.891403.3.57[id number] 2.16840.1.525730.19 Social History DateTypeDetailFacilityStart: 07-14-2018 End: 87-81-3098Orzhtsr smoking status NHISEx-smokerKettering Health Greene MemorialComment on above:patient quit smoking over 30 years agoStart: 10-14-1940 End: 91-49-9580Fenzset of tobacco useCurrent smokerK[facility] Health [facility]: 10-14-1941 End: 04-95-6769Ympwlxm of tobacco useCigarette SmokerK[facility] Health [facility]: 07-14-2018 End: 62-23-1063Iulcyhxspm smoked current (pack per day) - Injypugs7Ljbuvhwtc ClinicStart: 07-14-2018 End: 73-08-1406Bkwgokf use and exposureSmokeless tobacco non-userK[facility] Health [facility]: 01-08-2022 End: 30-33-4841Giqhjes intakeCurrent non-drinker of alcohol (finding)[facility]: 56-56-6190Wud Assigned At [facility]tart: 12-29-2021 End: 05-04-0563Msiuyqiq to SARS-CoV-2 (event)Not sureK[facility]tering Health [facility]: 11-24-2020 End: 68-84-6313Wxu Assigned At [facility] CampusHistory of tobacco usePassive smokerProMedica Flower Hospital smoking statusNeverExecutive U[facility] SanduskyComment on above:patient quit smoking over 30 years agoStart: 62-65-1828Lmhezn identityIdentifies as male gender (finding)[facility]: 25-40-4487Dtkmpt orientationHeterosexual (finding)[facility]: 03-22-2024 End: 42-08-0643Inohtph intakeLifetime non-drinker (finding)AmmadoHow often to you have a drink containing alcohol?NeverSAINT ELIZABETH'S MEDICAL CENTERTrackVia [facility] HOSPITALMobypark [facility]ITALStart: 22-52-0478Vuc Assigned At [facility] LincolnNot on fileBON [place] [facility] Has the electric, gas, oil, or water company threatened to shut off services in your home in past 12MoNoBon PC Network Services(I/We) worried whether (my/our) food would run out before (I/we) got money to buy more.Never trueBon Opendisc [facility] HospitalStart: 05-19-2015 End: 89-86-9197GfnCuzg (finding)[employer] Medical Equipment Procedure CodeEquipment CodeEquipment Original TextEquipment IdentifierDates Inlay Ozone Ureteral Stent Kit 7f X [id number]: 09-26-4056Mbgot Inlay Ozone 7fr Taper [place] Polymer Phreecoat 24cm Ureteral - [id number]: 46-69-8464Ovlzt Inlay Ozone 7fr Taper [place] Polymer Phreecoat 26cm Ureteral - [id number]: 00-37-2022Bbclq Nicore Inlay Ozone 7fr Taper [place] Nitinol Polymer 24cm - [id number] Start: 66-41-7493Kxixl Inlay Ozone 6fr Taper [place] Polymer Phreecoat 24cm Ureteral - [id number]: 29-42-8376Ggrldrt pacemaker, device (physical object) ([id number])Pacemaker Ldls Dr Pm 19.5f 32.2 Mm Ra Crd Strl - [id number] - [id number]()[id number], [id number] FDA Start: 41-59-4197Vocokmn pacemaker, device (physical object) ([id number])Pacemaker Ldls Dr Levy 19.5f 38.0 Mm Rv Crd Strl - [id number] - [id number] ()[id number], [id number] FDAStart: 04-21-2025 Goals DatePatient GoalDesired Activity/StatePersonal health goalComment on above: Evaluation of progress towards goal: patient progressing toward safe discharge home. Functional Status MzzuThgqqbqpfpHkynluBbgjvuqz03-15-9241Kurnuhpbtm StatusN/AExec[facility]02-05-2023Are you deaf, or do you have serious difficulty hearingNo 11/18/2022 10:06 AM Pat Cary RN [facility]02-05-2023Are you blind, or do you have serious difficulty seeing, even when wearing glassesNo 11/18/2022 10:06 AM Pat Cary RN [facility]02-05-2023Do you have serious difficulty walking or climbing stairsNo 11/18/2022 10:06 AM Pat Cary RN [facility]CCommunity [facility] Hospital 91-16-4254Zd you have difficulty dressing or bathingNo 11/18/2022 10:06 AM Pat Cary RN [facility] CenterIhvwyt36-69-0996Zvnjeon of a physical, mental, or emotional condition, do you have difficulty doing errands alone such as visiting a physician's office or shoppingNo 11/18/2022 10:06 AM Pat Cary RN [facility] Mental Status LtvuDkxzoewfkuRoarxsRqjepnuj63-73-5311Wwbcowd of a physical, mental, or emotional condition, do you have serious difficulty concentrating, remembering, or making decisionsNo 11/18/2022 10:06 AM Pat Cary RN [facility] Clinical Notes 07-08-2020 to 07-19-2025 Note Date & AqoyKddtHvbsiyow89-01-6477 NoteUT Cardiology - [facility] Iain Austin is a 85 y.o. year old male patient being seen for a 6 follow up appointment with ECHO. Per patient he is doing well, patient states he is outside decorating for minicabiteen doing is flower bed and mowing without [...] moderate, relieved by rest. He was evaluated [facility] ED and his CBC, BMP, BNP, [...] of breath on ac (more content not included)...[facility]08-04-2025 History of Present illness Narrative* Harpreet Avalos, GROUP PRACTICE PEDIATRICIAN-BUSINESS RECORDS MANAGER - 05/17/2025 8:30 AM EDT Images from the original note were not included. Wound Care Progress Note Patient: Juan Jose Austin Date of : 1940 Chief Complaint: Follow-up left chest wound Subjective/HPI: Juan Jose is a 85 y.o. male who presents to [facility] for evaluation of 1 ulcer(s)/wound(s) [...] variants x2, and MSSA and variant, and RIVET SORTER. CULTURE RESULTS Staphylococcus aureus Abnormal Staphylococcus aureus [...] 04/21/2025 Performed by Bryan Mccoy MD at [facility] (EP) HERNIA REPAIR NEPHRECTOMY Left jul 03, [...] diaphoretic. HENT: Head: Normocephalic and atraumatic. Comments: TYONEK Eyes: General: No scleral icterus. Extraocular Movements: [...] Image 05/17/25 08 Site Assessment Red 05/17/25847 Julia-wound Assessment Intact;Carpenter;Blanchable erythema 05/17/25 0848 Wound Length (cm) 0.3 [...] left chest. Short term goal: medical compliance long term acute care registered nurse goal: wound closure(maintained closure) Patient verbalizes understanding [...] health record LIZ Horvath 05/17/25 8:55 AM [facility] [phone] LIZ Horvath 05/17/25 1249 documented in this encounterLouis Stokes Cleveland VA Medical Centerdough [facility] MichiganRoedve82-73-0344 Instructions* Patient Instructions* Skylar Davidson RN - [...] Description moderate Serosanginous serosanguinous documented in this encounterWayne Hospital08-01-2025 NoteInfectious Disease. Telemedicine Note Consent Statement: I [...] that there are some limitations compared to ugxw-fa-bzew evaluations. We elected to proceed. Division of Infectious Diseases - Progress Note Our team prefers to use Yoyocard for communication during business hours (8 AM - 5 PM). We make every effort to keep the Treatment Team in Barcoding updated. If I do not respond within 30 minutes, please call the answering service. From 5 PM - 8 AM, please call our answering service at [phone] to speak to the on-call physician. Patient name: Juan Jose B Austin Patient Today's Date and Time: 05/12/2025, 5:11 PM PCP: Dr. Mayen Might Discharged from [facility] on 04/23/25 Location of provider: [facility] Current location of patient: [place] Impression /Recommendations: PPM pocket infection MSSA Initially presented to [facility] given concern for pacer pocket infection beginning [...] erythema, swelling and tenderness. He presented to [facility] originally for pacer pocket infection. He thinks the infection began in late December 2024. He was assessed by her director of procurement who thought the pacer wires were starting to erode. It was recommended to have a leadless PPM implanted but could only be done at [facility] or [facility]. He was then transferred. Started of [...] progress note was completed using a voice sugar controller system. Every effort was made to ensure accuracy; however, inadvertent computerized sugar controller errors may be present. Thank you for allowing us to participate in the care of this patient. Please do not hesitate to reach out to me via EpicChat or pager with any questions or concerns. Adelina Johnson APRN, CNP Please contact via [facility]07-26-2025 History of Present illness Narrative* Chago Hernandez [...] visit. Chief Complaint Patient presents with Follow-up eu-wgvun-xcdplcfeo w/pt status post dual-chamber leadless pacemaker Chest infection due to the pacemaker Atrial Fibrillation Shortness of Breath History of Present Illness Juan Jose Austin is a 85-year-old with history of CKD, renal cancer with nephrectomy, ulcerative colitis,remote history of paroxysmal atrial flutter nonobstructive coronary artery disease, syncope/complete heart block with [employer] dual-chamber pacemaker implanted 2022, lead revision January 2024. He follows with [facility] Cardiology. Patient presented to hospital for drainage [...] 04/21/2025 Performed by Bryan Mccoy MD at [facility] (EP) HERNIA REPAIR NEPHRECTOMY Left jul 03, 2018 History reviewed. No pertinent family history. Social History Socioeconomic History Marital status: Spouse name: Not on file Number of children: Not on file Years of education: Not on file Highest education level: Not on file Occupational History Occupation: retired Employer: [email or web address] Tobacco Use Smoking status: Former Types: Cigarettes Smokeless tobacco: Never Vaping Use Vaping status: Never Used Substance and Sexual Activity Alcohol use: No Drug use: No Sexual activity: Never Other Topics Concern Caffeine Use Yes Social History Narrative Not on file Social Drivers of Health Financial Resource Strain: Patient Declined (04/22/2024) Received from [employer] [facility] Overall Financial Resource Strain (CARDIA) Difficulty of Paying Living Expenses: Patient declined Food Insecurity: No Food Insecurity (05/03/2025) Hunger Screening Food Insecurity - Worry: Never True Food Insecurity - Inability: Never True Transportation Needs: No Transportation Needs (04/27/2025) Received from [employer] [facility] PRAPARE - Transportation Lack of Transportation (Medical): No Lack of Transportation (Non-Medical): No Physical Activity: Insufficiently Active (10/27/2024) Received from [employer] [facility] Exercise Vital Sign Days of Exercise per Week: 5 days Minutes of Exercise per Session: 10 min Stress: Not on file Social Connections: Not on file Interpersonal Safety: Not At Risk (04/20/2025) Humiliation, Afraid, Rape, and Kick questionnaire Fear of Current or Ex-Partner: No Emotionally Abused: No Physically Abused: No Sexually Abused: No Housing Instability: Low Risk (04/27/2025) Received from [employer] [facility] Housing Stability Vital Sign Unable to [...] of paroxysmal atrial flutter Syncope/complete heart block [employer] dual-chamber pacemaker implanted 2022, lead revision January 2024 Incision is healing well. Continues to follow with wound care for dressing/iodoform. Denies groin pain, swelling, bruising. Follow-up with [facility] Cardiology as scheduled. Patient was seen when Dr. Verma was present and immediately available in office suite. TODAYS ORDERS No orders of the defined types were placed in this encounter. FOLLOW UP Return if symptoms worsen or fail to improve. PCP: LIZ LAKHANI Referring Physician: LIZ Lakhani [address] [place] [address] LIZ Combs 05/08/25 1052 documented in this [facility]07-23-2025 Miscellaneous Notes* Telephone Encounter - Gill Chiu CMA - 05/05/2025 2:14 PM EDT Called patient to remind them to bring their most current copy of their medication list with them to their appt. Patient verbalizes understanding. documented in this [facility]07-23-2025 Telephone encounter Note* Telephone Encounter - Gill Chiu CMA - 05/05/2025 2:14 PM EDT Called patient to remind them to bring their most current copy of their medication list with them to their appt. Patient verbalizes understanding. [facility]07-23-2025 Miscellaneous Notes* Telephone Encounter - Jazmine Yu RN - 05/05/2025 9:50 AM EDT Patient's daughter called in stating the wound care nurse needs an order for the patient's sutures to be removed from his device extraction site. Spoke with [facility] over the phone, stated sutures should be removed after 14 days. Left message for the [place] wound clinic to determine if a verbal [...] on 05/08/25 with BMD documented in this encounterWayne Hospital07-23-2025 Telephone encounter Note* Telephone Encounter - Jazmine Yu RN - 05/05/2025 9:50 AM EDT Patient's daughter called in stating the wound care nurse needs an order for the patient's sutures to be removed from his device extraction site. Spoke with [facility]K over the phone, stated sutures should be removed after 14 days. Left message for the [place] wound clinic to determine if a verbal or written order is needed. [facility]07-23-2025 Telephone encounter Note* Telephone Encounter - Chelle [...] call daughter again to attempt to schedule. [facility]07-23-[facility] Telephone encounter Note* Telephone Encounter - Jazmine Yu RN - 05/05/2025 9:50 AM EDT Wound check appointment scheduled on 05/08/25 with [facility]07-22-20[facility] History of Present illness Narrative* Harpreet Avalos APRN-ABIOLA - 05/04/2025 7:08 PM EDT 05/04/25 Contacted patient's daughter Dennis. She reports she was not contacted by Infectious Disease. Discussed that recommendation is for Infectious Disease follow-up to ensure current antibiotic and lengthof treatment is appropriate for finalized surgical wound cultures. Dennis voiced understanding and reports she will call for follow-up appointment. Phone number [phone] provided. Dennis asked hand sign writer why sutures were not removed at yesterday's wound care visit. Nursing Specialist shared with Dennis that patient and his [...] Dr. Mccoy's office provided to patient's daughter ([phone]). She voices understanding to contactoffice to schedule follow-up. We discussed that it is my expectation that sutures would be removed at that time. Wound care is ongoing. Patient has follow-up in place for wound care as well. - LIZ Horvath 05/04/25 7:23 PM LIZ Horvath 05/04/251922 documented in this encounterWayne [facility]07-[facility] History of Present illness Narrative* LIZ Horvath - 05/03/2025 3:00 PM EDT Images from the original note were not included. Wound Care Progress Note Patient: Juan Jose Austin Date of : 1940 Chief Complaint: New patient evaluation for left chest wound Subjective/HPI: Juan Jose is a 85 y.o. male who presents to [facility] for evaluation of 1 ulcer(s)/wound(s) [...] variants x2, and MSSA and variant, and RIVET SORTER. Patient denies being directed to follow-up with [...] be negative for vegetations. Will communicate with [facility] ID to ensure no additional antibiotics warranted [...] 04/21/2025 Performed by Bryan Mccoy MD at [facility] (EP) HERNIA REPAIR NEPHRECTOMY Left jul 03, [...] diaphoretic. HENT: Head: Normocephalic and atraumatic. Comments: TYONEK Eyes: General: No scleral icterus. Extraocular Movements: [...] Site Assessment Red;Bleeding 05/03/25 1518 Julia-wound Assessment Intact;Carpenter 05/03/25 151 Wound Length (cm) 0.2 cm [...] daily Continue Keflex as prescribed until gone Nursing Specialist will communicate with Infectious Disease to ensure no further antibiotics needed in the setting of cultures finalizing positive with MSSA and variants x2, and MSSA & variant, RIVET SORTER and determine in outpatient follow-up needed. Patient also directed to contact Infectious Disease to schedulefollow-up if needed. Follow-up with Surgeon as scheduled. Patient and Other: Grandson instructed in wound care to left chest. Short term goal: medical compliance longterm goal: wound closure(maintained closure) Patient verbalizes understanding [...] procedures Referring and communicating with other health cardiac care unit nurse (not separately reported) Documenting clinical information in the electronic or other health record LIZ Horvath 05/03/25 3:29 PM [facility] [phone] LIZ Horvath 05/03/25 1437 documented in this encounterLouis Stokes Cleveland VA Medical Centerdough [facility] [id number] Instructions* Patient Instructions* Skylar Davidson RN - [...] Description moderate Serosanginous serosanguinous documented in this encounterWayne Hospital07-10-2025 Telephone encounter Note* Telephone Encounter - Shannan Castelan RN - 04/22/2025 9:05 AM EDT Pt scheduled for CT tomorrow. Currently hospitalized at [facility] in [place]. New defibrillator placed- site became reddened and erode at insertion site. Pt will call back to reschedule CT and f/u appt. Yu Martinez to scan notes in chart Thank You! Shannan Castelan RN [facility]07-10-2025 Miscellaneous Notes* Telephone Encounter - Shannan Castelan RN - 04/22/2025 9:05 AM EDT Pt scheduled for CT tomorrow. Currently hospitalized at [facility] in [place]. New defibrillator placed- site became reddened and erode at insertion site. Pt will call back to reschedule CT and f/u appt. Yu Martinez to scan notes in chart Thank You! Shannan Castelan RN documented in this encounterKettering Health [facility]05-13-2025 NoteUT Electrophysiology Consult Note Reason for visit: [...] moderate, relieved by rest. He was evaluated [facility] ED and his CBC, BMP, BNP, [...] No palpitations. No syncope. (more content not included)...[facility]05-07-2025 Note ND Electrophysiology Consult Note Reason for visit: S/P [...] moderate, relieved by rest. He was evaluated [facility] ED and his CBC, BMP, BNP, [...] extremity edema. He den (more content not included)...[facility] 02-17-2025 NotePatient is here today for 3 week found check. Patient denies fever, chills, body aches, pain. Review of Systems Constitutional: Negative.[facility]04-22-2025 NoteUT Electrophysiology Consult Note Reason for visit: [...] moderate, relieved by rest. He was evaluated [facility] ED and his CBC, BMP, BNP, [...] he had elevated BNP. 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 Use of blood products discussed with patient who. Additional Equipment RequestsUnKettering [facility]04-08-2025 Note ND Electrophysiology Consult Note Reason for visit: S/P [facility] hospital follow up 01/19/25 Juan Jose has [...] moderate, relieved by rest. He was evaluated [facility] ED and his CBC, BMP, BNP, [...] artifact is not c (more content not included)...[facility]03-28-2025 NoteUT Cardiology - [facility] Iain Austin is a 84 [...] moderate, relieved by rest. He was evaluated [facility] ED and his CBC, BMP, BNP, [...] to apex favoring remote (more content not included)...[facility]01-10-2025 History of Present illness Narrative* Graeme Vazquez MD - 10/23/2024 9:40 AM EST Images from the original note were not included. NAME: DanielJuan Jose CLINIC NO.: [id number] DATE OF SERVICE: October 23, 2024 (Eve) Some elements in this clinic note that are critical to medical decision making have been carefully reviewed and included from a prior clinic note dated: August 21, 2024 (Eve) Referring Provider: Dr. Galen Bhatt Additional Clinicians involved in Juna Jose Austin's care: Dr. Sergio Sneed (PCP), [...] - EGD/Colonoscopy: with Dr. Jacob Bear at [facility] Diverticulitis A. Duodenum, biopsy: - Duodenal mucosa [...] to suggest obstruction. 03/22/2024-04/12/2024 - Admitted at [facility] for non-ST elevated myocardial infarction and diarrhea 02/05/2024-02/07/2024 - Admitted at [facility] bradycardia due to pacemaker malfunction 01/24/2024 - [...] on cross-sectional imaging but have been present [id number]. The largest lesion is hypervascular and may [...] pacemaker was inserted on on 03/18/2023 at [facility] with Dr. Bautista. His shortness of breath [...] December 24, 2022: Virtual Visit Spoke with Jua nJose and with daughter Britt - they could see me but their video feed was down. Given his comorbidities he is a poor candidate for chemotherapy, [place] based or otherwise. Surgery would yield him [...] which included preparing to see the patient, [id number] patient care, completing clinical documentation, obtaining and/or reviewing separately obtained history, performing a medically appropriate examination, counseling and educating the patient/family/caregiver, ordering medications, tests, or procedures, independently interpreting results (not separately reported), communicating results to the patient/family/caregiver, and care coordination (not separately reported). Graeme Vazquez MD, CPE Hematology and Oncology Services Provided at: [place], [place] Scribe Attestation: This note was scribed [...] under my direction. CC: Sergio Sneed MD [address] [place] [phone] documented in this encounterKettering Health [facility]01-10-2025 NoteHNO ID: [id number] Author: GRAEME VAZQUEZ MD Service: ? Author Type: Physician Type: Progress Notes Filed: 10/23/2024 13:11 Note Text: NAME: DanielJuan Jose [facility] NO.: [id number] DATE OF SERVICE: October 23, 2024 (Eve) [...] - EGD/Colonoscopy: with Dr. Jacob Bear at [facility] Diverticulitis A. Duodenum, biopsy: - Duodenal mucosa [...] to suggest obstruction. 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 Given the imaging appearance and short-term development, these may be infectious/inflammatory in etiology. Therefore, would advise a short-term follow-up chest CT without contrast in 6-8 weeks to (more content not included)...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 Author [...] Austin DATE: October 16, 2024 TIME: 7:30 [facility]01-03-2025 Procedure note* Linda Laurent RN - [...] 16, 2024 TIME: 7:30 AM [facility]01-03-2025 Procedure note* Linda Laurent RN - 10/16/2024 [...] 2024 TIME: 7:30 AM documented in this encounterKettering Health [facility]12-04-2024 NoteCardiovascular Medicine [facility] SUBJECTIVE Chief Complaint Patient presents with Chest Pain Juan Jose Austin is a 84 y.o. male here for follow-up after his recent ER visit. 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 He stated he felt like something was poking him around his pacemaker but nothing was visible on the outside. He said he had been working on [employer] all day that day. He received a [...] 90 tablet, Rfl: 3 glucosamine/chondroitin weber A/C (KTIHREZPBLO-FJZDUNRZQFR-IQV C ORAL), Take 1 capsule by mouth [...] Disp: , Rfl: amLODIPin (more content not included)...[facility] 09-16-2024 NoteReview of Systems All other systems reviewed and are negative. believes pain was a pulled muscle from putting up [place] lights no more pain [facility]11-28-2024 Hospital Discharge instructions* Discharge Instructions* Leni Santiago MD - 09/10/2024 9:40 PM EST X-ray read is negative for any acute findings for movement of the pacer. Please call your director of procurement tomorrow discussed with the it is anything else acutely that you need to do or otherwise he may follow-up with PCP at regular scheduled intervals * Attachments The following attachments cannot be sent through Care Everywhere. * Chest Pain: Musculoskeletal (Serbian) documented in this encounterBon [facility]11-[facility] History of Present illness Narrative* Graeme Vazquez MD - 08/21/2024 9:40 AM EST Images from the original note were not included. NAME: Juan Jose Austin CLINIC NO.: [id number] DATE OF SERVICE: August 21, 2024 (Eve) [...] - EGD/Colonoscopy: with Dr. Jacob Bear at [facility] Diverticulitis A. Duodenum, biopsy: - Duodenal mucosa [...] to suggest obstruction. 03/22/2024-04/12/2024 - Admitted at [facility] for non-ST elevated myocardial infarction and diarrhea 02/05/2024-02/07/2024 - Admitted at [facility] bradycardia due to pacemaker malfunction 01/24/2024 - [...] on cross-sectional imaging but have been present [id number]. The largest lesion is hypervascular and may [...] pacemaker was inserted on on 03/18/2023 at [facility] with Dr. Bautista. His shortness of breath [...] he is a poor candidate for chemotherapy, [place] based or otherwise. Surgery would yield him [...] which included preparing to see the patient, [id number] patient care, completing clinical documentation, obtaining and/or reviewing separately obtained history, performing a medically appropriate examination, counseling and educating the patient/family/caregiver, ordering medications, tests, or procedures, independently interpreting results (not separately reported), communicating results to the patient/family/caregiver, and care coordination (not separately reported). Graeme Vazquez MD, CPE Hematology and Oncology Services Provided at: [facility], [place], [place] Scribe Attestation: This note was scribed [...] under my direction. CC: Sergio Sneed MD [facility] [phone] documented in this encounterKettering Health [facility]11-08-2024 NoteHNO ID: [id number] Author: GRAEME VAZQUEZ MD Service: ? Author Type: Physician Type: Progress Notes Filed: 08/21/2024 11:17 Note Text: NAME: DanielJuan Jose [facility] NO.: [id number] DATE OF SERVICE: August 21, 2024 (Eve) [...] - EGD/Colonoscopy: with Dr. Jacob Bear at [facility] Diverticulitis A. Duodenum, biopsy: - Duodenal mucosa [...] to suggest obstruction. 03/22/2024-04/12/2024 - Admitted at [facility] for non-ST elevated myocardial infarction and diarrhea 02/05/2024-02/07/2024 - Admitted at [facility] bradycardia due to pacemaker malfunction 01/24/2024 - [...] of segment 8 of (more content not included)...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 Author [...] Austin DATE: June 29, 2024 TIME: 8:03 [facility]09-16-2024 NoteHNO ID: [id number] Author: MARGOT SMITH RT(R) Service: ? Author [...] PATIENT PRESENTS WITH AN IMPLANTABLE OR ATTACHED RESEARCH DAIRY FARM SUPERVISOR: No RADIOLOGY DEPARTMENT: CT; Exam(s) Completed: Chest Abdomen Pelvis PERIPHERAL IV DATA: Site assessment: Clean,Dry and Intact, Site disposition Discontinued SIGNED BY: RT Loida(R) June 29, 2024 8:57 [facility]08-05-2024 Instructions* Patient Instructions* Graeme Vazquez MD - 05/18/2024 1:20 PM EDT Hold pembrolizumab due to colitis Continue weaning steroids CT CAP scans in 6 weeks with labs RTC in 7 weeks documented in this encounterKettering Health [facility]08-05-2024 History of Present illness Narrative* Graeme Vazquez MD - 05/18/2024 1:00 PM EDT Images from the original note were not included. NAME: Juan Jose Austin CLINIC NO.: [id number] DATE OF SERVICE: May 18, 2024 (Eve) [...] to suggest obstruction. 03/22/2024-04/12/2024 - Admitted at [facility] for non-ST elevated myocardial infarction and diarrhea 02/05/2024-02/07/2024 - Admitted at [facility] bradycardia due to pacemaker malfunction 01/24/2024 - [...] on cross-sectional imaging but have been present [id number]. The largest lesion is hypervascular and may [...] pacemaker was inserted on on 03/18/2023 at [facility] with Dr. Bautista. His shortness of breath [...] he is a poor candidate for chemotherapy, [place] based or otherwise. Surgery would yield him [...] which included preparing to see the patient, [id number] patient care, completing clinical documentation, obtaining and/or reviewing separately obtained history, performing a medically appropriate examination, counseling and educating the patient/family/caregiver, ordering medications, tests, or procedures, independently interpreting results (not separately reported), communicating results to the patient/family/caregiver, and care coordination (not separately reported). Graeme Vazquez MD, CPE Hematology and Oncology Services Provided at: [place], [place] CC: Sergio Sneed MD [address] [facility] [phone] documented in this encounterKettering Health [facility]08-05-2024 NoteHNO ID: [id number] Author: GRAEME VAZQUEZ MD Service: ? Author Type: Physician Type: Progress Notes Filed: 05/19/2024 11:18 Note Text: NAME: Juan Jose Austin [facility] NO.: [id number] DATE OF SERVICE: May 18, 2024 (Eve) [...] to suggest obstruction. 03/22/2024-04/12/2024 - Admitted at [facility] for non-ST elevated myocardial infarction and diarrhea 02/05/2024-02/07/2024 - Admitted at [facility] bradycardia due to pacemaker malfunction 01/24/2024 - [...] right hepatic l (more content not included)... [facility]06-17-2024 Telephone encounter Note* Telephone Encounter - Lauren Mckeon RN - 03/30/2024 8:44 AM EDT Call received from pt's family member stating the prednisone script from 03/20 still has not been signed, and pt continues with uncontrollable diarrhea. Daughter states patient has >7 diarrhea stools a day and has tried imodium with no relief. Pt was admitted to [facility] last week with heart issues and those records are available through care everywhere. Stools for cdiff were negative on Ptrefused colonoscopy while admitted... NICOLETTE: please sign script for prednisone that was pended by Elizabeth back on 03/20. Daughter would like this to go to [facility] in [place]. Lauren Mckeon RN [facility] Work Phone: [phone] Miscellaneous Notes* Telephone Encounter - Lauren Mckeon RN - 03/30/2024 8:44 AM EDT Call received from pt's family member stating the prednisone script from 03/20 still has not been signed, and pt continues with uncontrollable diarrhea. Daughter states patient has >7 diarrhea stools a day and has tried imodium with no relief. Pt was admitted to [facility] last week with heart issues and those records are available through care everywhere. Stools for cdiff were negative on Ptrefused colonoscopy while admitted... NICOLETTE: please sign script for prednisone that was pended by Elizabeth back on 03/20. Daughter [place] like this [place] go to [facility] [place]. Lauren Mckeon RN documented in this encounterKettering Health [facility]06-07-2024 Telephone encounter Note * Telephone Encounter - Margot So RN - 03/20/2024 12:14 PM EDT Spoke w/ pt's daughter who reports that the pt has not been taking Prednisone. Dr notified and orders to start Prednisone 10 mg/day. Pt's daughter notified and verbalizes understanding. Will call back if his symptoms persist. Nicolette: Rx pended. Margot So RN [facility] Work Phone: [phone] Miscellaneous Notes* Telephone Encounter - Margot So [...] answer and unable to leave a VM. [phone] Edwina Olson documented in this encounterKettering Health [facility]06-07-2024 Telephone encounter Note * Telephone Encounter - [...] could try octreotide if GI clears him. [facility]06-07-2024 Telephone encounter Note* Telephone Encounter - Margot [...] be a delayed effect? Margot So, RN [facility]06-07-2024 Telephone encounter Note* Telephone Encounter - Edwina Olson - 03/20/2024 10:37 AM EDT Patient's daughter, Britt, left message on my voicemail to cancel today's appointment because patient is having issues . Call placed to Britt to reschedule, she did not answer and unable to leave a VM. [phone] Edwina Olson [facility]04-23-2024 Telephone encounter Note* Telephone Encounter - Edwina Olson - 02/04/2024 8:53 AM EDT Patient called back and has been scheduled with NICOLETTE and possible treatment tomorrow, 02/04. Patient is all set, Thanks! Edwina Olson [facility]04-23-2024 Miscellaneous Notes* Telephone Encounter - Edwina Olson [...] his treatment. Skylar John documented in this encounterKettering Health [facility]04-22-2024 Telephone encounter Note * Telephone Encounter - Edwina Olson - 02/03/2024 3:44 PM EDT Attempted to contact patient again, no answer. Left another detailed message. Edwina Olson [facility]04-19-2024 Telephone encounter Note* Telephone Encounter - Edwina Olson - 01/31/2024 4:19 PM EDT Call placed to patient, no answer. Left message on voicemail to call back to reschedule. Edwina Olson [facility]04-19-2024 Telephone encounter Note* Telephone Encounter - Margot So RN - 01/31/2024 11:25 AM EDT Clerical: Pt forgot about today's appointment. Offered to have him come in this afternoon instead. Pt would prefer to reschedule to a different day. Margot So RN [facility] Work Phone: [phone] 744-737204-19-2024 Telephone encounter Note* Telephone Encounter - Skylar John - 01/31/2024 11:18 AM EDT Patient was a no show for his follow up with NICOLETTE & his treatment. 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 NAME: Juan Jose Austin CLINIC NO.: [id number] DATE OF SERVICE: December 20, 2023 (Wero) [...] pacemaker was inserted on on 03/18/2023 at [facility] with Dr. Bautista. His shortness of breath [...] he is a poor candidate for chemotherapy, arctic village based or otherwise. Surgery would yield him [...] Anesthesia Problems No Family History Patricia Conteh APRN.BUSINESS RECORDS MANAGER Hematology and Oncology Services Provided at: [place], [place] CC: Sergio Sneed MD [address] [facility] [phone] I spent a total of 30 minutes on the date of the service which included preparing to see the patient, taqy-ef-ihql patient care, completing clinical documentation, obtaining and/or reviewing separately obtained history, performing a medically appropriate examination, counseling and educating the pat ient/family/caregiver, ordering medications, tests, or procedures, independently interpreting results (not separately reported), and communicating results to the patient/family/caregiver. documented in this encounterKet[facility]03-08-2024 Nurse Note* Jami Bates MA - 12/20/2023 1:10 PM EST Patient state that he has been losing weight, he has no desire to eat, nothing tastes good he has to force himself to eat. Jami Hernandez MA documented in this encounterKettering Health [facility]02-16-2024 History of Present illness Narrative* Graeme Vazquez MD - 11/29/2023 1:15 PM EST Images from the original note were not included. NAME: Juan Jose Austin [facility] NO.: [id number] DATE OF SERVICE: November 29, 2023 (Eve) [...] Patricia or Corazon RTC 6 weeks with fl Labs same day HPI: CASE HISTORY: Reverse [...] pacemaker was inserted on on 03/18/2023 at [facility] with Dr. Bautista. His shortness of breath [...] he is a poor candidate for chemotherapy, arctic village based or otherwise. Surgery would yield him [...] which included preparing to see the patient, ntoh-zl-ppts patient care, completing clinical documentation, performing a medically appropriate examination, counseling and educating the patient/family/caregiver, ordering medications, tests, or procedures, independently interpreting results (not separately reported), communicating results to the patient/family/caregiver, and care coordination (not separately reported). Graeme Vazquez MD, CPE Hematology and Oncology Services Provided at: [place], [place] Scribe Attestation: This note was scribed [...] CC: Sergio Sneed MD [address] [facility] [phone] documented in this encounterKettering Health [facility]02-16-2024 Instructions* Patient Instructions* Jessica Pathak - 11/29/2023 1:14 PM EST Proceed with pembrolizumab cycle 13 today. Hydration today. Follow up in 3 weeks for continued treatment. Labs same day. See Patricia Chandra RTC 6 weeks with fl Labs same day documented in this encounterKet[facility]02-09-2024 Miscellaneous Notes* Telephone Encounter - Edwina Olson - 11/22/2023 1:13 PM EST Patient has been rescheduled to 11/29 and notified. Thanks! Edwina Olson * Telephone Encounter - Margot So RN - 11/22/2023 12:48 PM EST Voicemail message received from pt requesting to reschedule his missed appointment w/ Dr Vazquez. Clerical: Please call pt @ [phone] to schedule. Thanks! Margot So RN * Telephone Encounter - Margot So RN - 11/21/2023 4:06 PM EST Pt still in need of f/u appointment. Call placed to pt. No answer. Message left requesting call back. Call placed to pt's spouse. No answer. Message left requesting call back. Margot So RN documented in this encounterKettering [facility]02-01-2024 Miscellaneous Notes* Telephone Encounter - Elizabeth Beltrán [...] these appointments. HU Moore documented in this encounterKettering Health [facility]11-16-2023 History of Present illness Narrative* Graeme Vazquez MD - 08/29/2023 1:30 PM EST Images from the original note were not included. NAME: Juan Jose Austin NO.: [id number] DATE OF SERVICE: August 29, 2023 (Eve) [...] pacemaker was inserted on on 03/18/2023 at [facility] with Dr. Bautista. His shortness of breath [...] he is a poor candidate for chemotherapy, arctic village based or otherwise. Surgery would yield him [...] which included preparing to see the patient, wqip-tu-ixto patient care, completing clinical documentation, performing a medically appropriate examination, counseling and educating the patient/family/caregiver, ordering medications, tests, or p rocedures, independently interpreting results (not separately reported), communicating results to the patient/family/caregiver, and care coordination (not separately reported). Graeme Vazquez MD, CPE Hematology and Oncology Services Provided at: [place], [place] CC: No referring provider defined for this encounter. Sergio Sneed MD [facility] [facility] [phone] documented in this encounterKettering [facility]11-16-2023 Instructions* Patient Instructions* Graeme Vazquez MD - [...] can restart his Keytruda. documented in this encounterKettering [facility]11-10-2023 History of Present illness Narrative* Shannan Castelan [...] 23, 2023 9:43 AM documented in this encounterKettering [facility]10-26-2023 Miscellaneous Notes* Telephone Encounter - Margot So [...] noted. Margot So RN documented in this encounterKettering Health [facility]10-05-2023 Instructions* Patient Instructions* Graeme Vazquez MD - 07/18/2023 1:39 PM EDT Proceed with cycle 9 pembrolizumab today. In 3 weeks to for cycle 10. Labs prior No clinician RTC in 6 weeks prior to C11 Labs every [address] in 5 weeks documented in this encounterKettering Health [facility]10-05-2023 History of Present illness Narrative* Graeme Vazquez [...] pacemaker was inserted on on 03/18/2023 at [facility] with Dr. Bautista. His shortness of breath [...] he is a poor candidate for chemotherapy, arctic village based or otherwise. Surgery would yield him [...] which included preparing to see the patient, qhbe-ud-gflx patient care, completing clinical documentation, performing a medically appropriate examination, counseling and educating the patient/family/caregiver, ordering medications, tests, or p rocedures, independently interpreting results (not separately reported), communicating results to the patient/family/caregiver, and care coordination (not separately reported). Graeme Vazquez MD, CPE Hematology and Oncology Services Provided at: [place], [place] CC: No referring provider defined for this encounter. Sergio Sneed MD [facility] [phone] documented in this encounterKettering [facility]09-14-2023 History of Present illness Narrative* Patricia Conteh APRN.BUSINESS RECORDS MANAGER - 06/27/2023 1:20 PM EDT ONCOLOGY FOLLOW [...] 80 oz. Updated Visit, April 25, 2023: Juna Jose Austin returns for follow-up and pembrolizumab. [...] pacemaker was inserted on on 03/18/2023 at [facility] with Dr. Bautista. His shortness of breath [...] he is a poor candidate for chemotherapy, arctic village based or otherwise. Surgery would yield him [...] APRN.CNP Hematology and Oncology Services Provided at: [place], [place] I spent a total of 30 minutes on the date of the service which included preparing to see the patient, krrt-gh-czjz patient care, completing clinical documentation, obtaining and/or reviewing separately obtained history, performing a medically appropriate examination, counseling and educating the pat ient/family/caregiver, ordering medications, tests, or procedures, independently interpreting results (not separately reported), and communicating results to the patient/family/caregiver. documented in this encounterK[facility]09-05-2023 History of Present illness Narrative* Galen Bhatt [...] visit. Either the patient or their legal sales development representative has been informed of the risks [...] Dr. Sandy Bhatt MD documented in this encounterKettering Health [facility]08-24-2023 History of Present illness Narrative* Graeme Vazquez [...] pacemaker was inserted on on 03/18/2023 at [facility] with Dr. Bautista. His shortness of breath [...] he is a poor candidate for chemotherapy, arctic village based or otherwise. Surgery would yield him [...] which included preparing to see the patient, ffkd-kh-kvoc patient care, completing clinical documentation, performing a medically appropriate examination, counseling and educating the patient/family/caregiver, ordering medications, tests, or p rocedures, and independently interpreting results (not separately reported). Graeme Vazquez MD, CPE Hematology and Oncology Services Provided at: [place], [place] documented in this encounterKettering [facility]08-18-2023 Miscellaneous Notes* Telephone Encounter - Jazmine Lopez - 05/31/2023 12:21 PM EDT Requested Prescriptions Pending Prescriptions Disp Refills tamsulosin (FLOMAX) 0.4 mg 30 capsule 5 Sig: Take 1 capsule by mouth once daily. DAUGHTER STATES PATIENT IS OUT OF PILLS documented in this encounterKettering [facility]08-18-2023 History of Present illness Narrative* Shannan Castelan [...] 31, 2023 11:24 AM documented in this encounterKettering [facility]08-03-2023 Instructions* Patient Instructions* Graeme Vazquez MD - 05/16/2023 2:[address] CAP in 1 -2 weeks Reschedule appointment with Dr. Bhatt after CT. Proceed with cycle 6 pembrolizumab today. Follow up in 3 weeks to for cycle 7. Labs prior. Review Scans Hold Lasix for a few days to see if mouth improves. documented in this encounterKet[facility]08-03-2023 History of Present illness Narrative* Graeme Vazquez [...] pacemaker was inserted on on 03/18/2023 at [facility] with Dr. Bautista. His shortness of breath [...] he is a poor candidate for chemotherapy, arctic village based or otherwise. Surgery would yield him [...] which included preparing to see the patient, vmdl-ed-yviu patient care, completing clinical documentation, performing a medically appropriate examination, counseling and educating the patient/family/caregiver, ordering medications, tests, or p rocedures, and independently interpreting results (not separately reported). Graeme Vazquez MD, CPE Hematology and Oncology Services Provided at: [place], [place] documented in this encounterK[facility]07-25-2023 History of Present illness Narrative* Galen Bhatt MD - 05/07/2023 3:10 PM EDT s documented in this encounterK[facility]07-13-2023 History of Present illness Narrative* Patricia Conteh [...] pacemaker was inserted on on 03/18/2023 at [facility] with Dr. Bautista. His shortness of breath [...] he is a poor candidate for chemotherapy, arctic village based or otherwise. Surgery would yield him [...] to discuss when to restage. Patricia Conteh APRN.[facility] Hematology and Oncology Services Provided at: [facility], [place], [place] I spent a total of 30 minutes on the date of the service which included preparing to see the patient, qxyj-fa-cmmo patient care, completing clinical documentation, obtaining and/or reviewing separately obtained history, performing a medically appropriate examination, counseling and educating the pat ient/family/caregiver, ordering medications, tests, or procedures, independently interpreting results (not separately reported), and communicating results to the patient/family/caregiver. documented in this encounterK[facility]06-22-2023 History of Present illness Narrative* Patricai Conteh APRN.CNP - 04/04/2023 11:00 AM EDT [...] pacemaker was inserted on on 03/18/2022 at [facility] with Dr. Bautista. His shortness of breath [...] he is a poor candidate for chemotherapy, arctic village based or otherwise. Surgery would yield him [...] APRN.CNP Hematology and Oncology Services Provided at: [place], [place] I spent a total of 30 minutes on the date of the service which included preparing to see the patient, udfr-nr-kzpq patient care, completing clinical documentation, obtaining and/or reviewing separately obtained history, performing a medically appropriate examination, counseling and educating the pat ient/family/caregiver, ordering medications, tests, or procedures, independently interpreting results (not separately reported), and communicating results to the patient/family/caregiver. 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 Thank you documented in this encounterK[facility]04-20-2023 History of Present illness Narrative* Padmini Mike RN - 01/31/2023 9:22 AM EDT No labs today per Dr. Vazquez. Padmini Mike RN documented in this encounterKettering [facility]04-20-2023 Instructions* Patient Instructions* Graeme Vazquez MD - 01/31/2023 8:50 AM EDT Resume C2 pembrolizumab today. RTC in 3 weeks Ask Ms. So to call next week to heck symptoms documented in this encounterKettering [facility]04-20-2023 History of Present illness Narrative* Graeme Vazquez [...] he is a poor candidate for chemotherapy, arctic village based or otherwise. Surgery would yield him [...] which included preparing to see the patient, lfsw-gv-tklm patient care, completing clinical documentation, performing a medically appropriate examination, counseling and educating the patient/family/caregiver, ordering medications, tests, or p rocedures, communicating with other HCPs (not separately reported), independently interpreting results (not separately reported), and communicating results to the patient/family/caregiver. Graeme Vazquez MD, CPE Hematology and Oncology Services Provided at: [place], [place] documented in this encounterK[facility]04-12-2023 History of Present illness Narrative* Margot Smith, [...] 23, 2023 3:07 PM documented in this encounterK[facility]03-28-2023 Miscellaneous Notes* Telephone Encounter - Margot So [...] protocol. Margot So RN documented in this encounterKet[facility]03-22-2023 Instructions* Patient Instructions* Graeme Vazquez MD - 01/02/2023 3:18 PM EDT Start Keytruda q 3 weeks Labs same day. RTC 3 weeks with Patricia / Corazon Owens documented in this encounterKettering [facility]03-22-2023 History of Present illness Narrative* Graeme Vazquez [...] be completely resected. Procedure complicated by postoperative CESLO Recommendations to proceed with trial of chemotherapy [...] he is a poor candidate for chemotherapy, arctic village based or otherwise. Surgery would yield him [...] which included preparing to see the patient, hyle-qc-qefj patient care, completing clinical documentation, obtaining and/or reviewing separately obtained history, counseling and educating the patient/family/caregiver, ordering medications, edin ts, or procedures, independently interpreting results (not separately reported), and communicating results to the patient/family/caregiver. Graeme Vazquez MD, CPE Hematology and Oncology Services Provided at: [place], [place] documented in this encounterK[facility]03-22-2023 Nurse Note* Liberty Hayes - 01/02/2023 3:08 PM EDT Pt requested recent blood work faxed to Dr. Sneed. Faxed via [employer]. Liberty Hayes documented in this encounterK[facility]03-20-2023 History of Present illness Narrative* Margot So [...] N/A Margot So RN documented in this encounterKettering [facility]03-08-2023 Miscellaneous Notes* Telephone Encounter - Olive Alarcon MD - 12/19/2022 8:54 AM EST Patient cancelled Nephrology appt for 12/20/22. Called patient, plan to get labs in the coming days to ensure continued improvement of Cr. documented in this encounterK[facility]03-06-2023 Miscellaneous Notes* Telephone Encounter - Lauren Mendez - 12/17/2022 11:21 AM EST Called patient and r/s to next week * Telephone Encounter - Lauren Mckeon RN - 12/17/2022 11:15 AM EST Pt's caris testing has not been resulted yet. Please call pt and reschedule to next week per Dr Moncada's request. Thanks Lauren Mckeon RN documented in this encounterKet[facility]02-22-2023 Hospital Discharge instructions Patient Education 12/05/2022 10:40:17 [...] cells. Follow these instructions at home: Take vacv-qhr-zpblctb and prescription medicines only as told by [...] is important. Where to find more information [employer]: www.cancer.org National Cancer Cosmos (NCI): www.cancer.gov Contact a health care provider [...] 10/02/2004 Document Revised: 09/12/2018 Document Reviewed: 09/03/2017 [employer] Patient Education 2020 [employer]. Follow Up Care 11/23/2022 15:08:18 With:JENNIFER FOUNTAIN, Jian Lee, URL Address: [facility] [address] , [place] [address]- When: Unknown [facility] 02-13-2023 Instructions* Patient Instructions* Graeme Vazquez MD - 11/26/2022 9:29 AM EST 1. Virtual visit 3 weeks after discussion with Dr. Bhatt and consideration of molecular studies. 2. AP Mol. documented in this encounterKet[facility]02-13-2023 History of Present illness Narrative* Graeme Vazquez [...] CPE Hematology and Oncology Services Provided at: [place], [place] I spent a total of 40 minutes on the date of the service which included preparing to see the patient, goqj-ck-xcqs patient care, completing clinical documentation, obtaining and/or reviewing separately obtained history, performing a medically appropriate examination, counseling and educating the pat ient/family/caregiver, ordering medications, tests, or procedures, independently interpreting results (not separately reported) and communicating results to the patient/family/caregiver. documented in this encounterKet[facility]02-13-2023 Nurse Note* Jami Hernandez MA - 11/26/2022 8:47 AM EST Patient was [facility]), he will havehis ureteral stent removed locally by Dr. Rodriguez. 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 We [...] complete. Galen Bhatt MD documented in this encounterKettering Health [facility]11-30-2022 History of Present illness Narrative* Nicholas Saenz MD - 09/12/2022 2:45 PM EST [facility] PRE-OP NOTE Patient [...] surgery pending LABS, IMPACT documented in this encounterKettering Health [facility]11-30-2022 History and physical note * Fatimah Salcedo [...] fevers. Neuro: No history of TIA's, stroke, RIVET SORTER tumor, impaired sensorium, hemiplegia, paraplegia or quadraplegia. No neurological symptoms or problems. Respiratory: No history of current cough or dyspnea, or pneumonia in the past 6 weeks. No history of respiratory/pulmonary symptoms or problems. Cardiovascular: Negative for Recent ID, Angina, Arrhythmia, CAD, Chest Pain, PVD, Valvular [...] BLOCK ABNORMAL ECG ECHO 02/27/22 scanned into [facility] Assessment/Plan Hypertensive heart disease with heart failure (HCC) -BP elevated in office 171/70, 170/72, patient reports he has not taken any of his medications yet today -denies cardiac symptoms -EF 55% on echo 02/2022 scanned into [facility] -on hydralazine, losartan, isosorbide dinitrate, [...] service. Requested most recent office note from director of procurement, Dr. Mason Castaneda. Planned Anesthetic: General Instructions Given to Patient: Instructions located in the after visit summary. Patient given verbal and written preop instructions and voices comprehension and compliance. SIGNATURE: Fatimah Salcedo PA-C PATIENT NAME: Juan Jose Austin DATE: September 12, 2022 TIME: 11:37 AM documented in this encounterKettering Health [facility]11-30-2022 Instructions* Patient Instructions* Fatimah Salcedo PA-C - 09/12/2022 11:21 AM EST PATIENT PREOPERATIVE INSTRUCTIONS Galen Bhatt MD has scheduled you for your procedure at this surgery center: [facility] [place] Scheduling Office: [phone] --[address] [place] [address]. Please read below carefully for your personalized [...] Procedures: - YOU MUST HAVE A RESPONSIBLE LABORER STORES TAKE YOU HOME. A FARM TECHNICIAN OR FIELD INSTALLER CANNOT BE MADE A RESPONSIBLE LABORER STORES. - We recommend that a responsible person [...] call the Saturday before. Your surgeon s ice maker will tell you what time to call the office. - If you have not reached the departmental ice maker by 5 P.M., call [phone] after 5 P.M. the day before your surgery. Please be aware that emergency situations arise, which may delay or change your surgical time. If this happens, we will notify you as soon as possible and regret any inconvenience. If you already have an Advance Directive, please fax a copy to [phone] or email to for it to be [...] day. 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 It required patient- provider interaction for the medical decision making as documented below. Chief complaint: Preop teaching [facility] PRE-OP NOTE Juan Jose Austin is a 81 year old male. Pre-op Date: March 26, 2022 Date of Procedure: 03/28/22 Does the patient have an active COVID-19 test in [facility]? N/A Procedure/Surgery: LASER CYSTOURETHROSCOPY W/ URETEROSCOPY AND/OR [...] minutes Jimmy Tejada PA-C documented in this encounterKettering Health [facility]05-31-2022 History of Present illness Narrative* Galen Bhatt MD - 03/13/2022 2:10 PM EDT VIRTUAL VISIT PROGRESS NOTE This is a virtual visit using Bringg video visit. It required patient-provider interaction for [...] 1 tablet by mouth once daily. Fish Oil-Honeydew-3 Fatty Acids (FISH OIL) 300-1,000 mg cap [...] the date of the service which included ryxe-kn-xcus patient care, completing clinical documentation, obtaining and/or [...] complete. 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 [facility] History of Present illness Narrative* Corazon Maxwell [...] weeks. Corazon Maxwell PA-C documented in this encounter[facility] History of Present illness Narrative* Soren Perea [...] which included preparing to see the patient, [id number] patient care, completing clinical documentation, obtaining and/or reviewing separately obtained history, performing a medically appropriate examination, counseling and educating the pat ient/family/caregiver, ordering medications, tests, or procedures, independently interpreting results (not separately reported) and communicating results to the patient/family/caregiver. documented in this encounterK[facility] History of Present illness Narrative* Soren Perea [...] which included preparing to see the patient, [id number] patient care, completing clinical documentation, obtaining and/or reviewing separately obtained history, performing a medically appropriate examination, counseling and educating the pat ient/family/caregiver, ordering medications, tests, or procedures, independently interpreting results (not separately reported) and communicating results to the patient/family/caregiver. documented in this encounterK[facility]04-11-2022 History of Present illness Narrative* Belia Martínez RN - 01/22/2022 1:27 PM EDT . documented in this encounterK[facility]04-04-2022 History of Present illness Narrative* Irma Ariza RN - 01/15/2022 1:38 PM EDT . documented in this encounterK[facility]04-04-2022 History of Present illness Narrative* Corazon Maxwell [...] him again next week for day 8. Croazon Maxwell PA-C documented in this encounterK[facility]03-28-2022 History of Present illness Narrative* Soren Perea [...] Blood work today shows platelet count of [id number]. I will hold treatment today and continue with cycle 3 day 1 in a week. The plan is to repeat endoscopy evaluation after 3-6 cycles of chemotherapy based on tolerance. Soren Perea MD I spent a total of 20 minutes on the date of the service which included preparing to see the patient, [id number] patient care, completing clinical documentation, obtaining and/or reviewing separately obtained history, performing a medically appropriate examination, counseling and educating the pat ient/family/caregiver, ordering medications, tests, or procedures, independently interpreting results (not separately reported) and communicating results to the patient/family/caregiver. documented in this encounterK[facility]09-25-2020 History of Present illness Narrative* Wang Linda [...] 2020 TIME: 11:15 AM [facility] Future Appointments Appointment Date:12/18/2022 01:00:00 PM Scheduled Provider:Jian RODRIGUEZ MD Location:[facility] Appointment Type:URO Procedure 15 min [facility] Evaluation note* Diagnosis Malignant neoplasm of ureter, unspecified laterality (HCC)- Primary [facility]* Diagnosis Malignant neoplasm of ureter, unspecified laterality (HCC)- Primary [facility]* Diagnosis Malignant neoplasm of ureter, unspecified laterality (HCC)- Primary [facility]* Diagnosis Malignant neoplasm of ureter, unspecified laterality (HCC)- Primary [facility]* Diagnosis Malignant neoplasm of ureter, unspecified laterality (HCC)- Primary [facility]* Diagnosis Malignant neoplasm of ureter, unspecified laterality (HCC)- Primary [facility]* Diagnosis Malignant neoplasm of ureter, unspecified laterality (HCC)- Primary [facility]* Diagnosis Malignant neoplasm of ureter, unspecified laterality (HCC)- Primary [facility]* Diagnosis Urothelial carcinoma (HCC)- Primary Other malignant neoplasm without specification of site Urothelial carcinoma (HCC) Other malignant neoplasm without specification of site [facility]* Diagnosis Urothelial carcinoma (HCC)- Primary Other malignant neoplasm without specification of site Urothelial carcinoma (HCC) Other malignant neoplasm without specification of site [facility]* Diagnosis 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, unspecified laterality (HCC)- Primary Acute cystitis without hematuria Acute cystitis documented [facility]* Diagnosis Urothelial carcinoma (HCC)- Primary Other malignant neoplasm without specification of site Urothelial carcinoma (HCC) Other malignant neoplasm without specification of site [facility]* Diagnosis Pre-op evaluation- Primary Preoperative examination, unspecified Hypertensive heart disease with heart failure (HCC) 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 Gastro-esophageal reflux disease without esophagitis Esophageal reflux Ulcerative pancolitis (HCC) [place]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 Stage 3 chronic kidney disease, unspecified whether stage 3a or 3b CKD (HCC) 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, 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, except renal pelvis (HCC) Malignant neoplasm of kidney, except pelvis Malignant neoplasm of urinary bladder, unspecified site (HCC) documented [facility]* Diagnosis Urothelial carcinoma (HCC)- Primary Other malignant neoplasm without specification of site Malignant neoplasm of right kidney, except renal pelvis (HCC) Malignant neoplasm of kidney, except pelvis Malignant neoplasm of urinary bladder, unspecified site (HCC) documented [facility]* Diagnosis Screening for genitourinary condition Screening for other and unspecified genitourinary condition Malignant neoplasm of right kidney, except renal pelvis (HCC) Malignant neoplasm of kidney, except pelvis Malignant neoplasm of urinary bladder, unspecified site (HCC) documented in this encounter [facility] note* Diagnosis 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, unspecified laterality (HCC)- Primary documented in this encounter [facility] noteNo [facility] [facility] Other Evaluation note* Diagnosis CELSO (acute kidney injury) (HCC)- Primary Acute kidney failure, unspecified documented in this encounter [facility] note* Diagnosis 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 Malignant neoplasm of other specified sites of bladder documented in this encounter [facility] note* Diagnosis Malignant neoplasm of overlapping [...] unspecified laterality (HCC) documented in this encounter [facility] note* Diagnosis 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 Malignant neoplasm of other specified sites of bladder Malignant neoplasm of right kidney, except renal pelvis (HCC) Malignant neoplasm of kidney, except pelvis Malignant neoplasm of ureter, unspecified laterality (HCC) documented in this encounter [facility] note* Diagnosis 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 Malignant neoplasm of other specified sites of bladder CKD (chronic kidney disease), stage V (HCC) Chronic kidney disease, Stage V Disorder of thyroid Unspecified disorder of thyroid Malaise and fatigue Other malaise and fatigue documented in this encounter [facility] note* Diagnosis 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 Malignant neoplasm of other specified sites of bladder CKD (chronic kidney disease), stage V (HCC) Chronic kidney disease, Stage V Abnormal weight loss Loss of weight Malignant neoplasm of urinary bladder, unspecified site (HCC) documented in this encounter [facility] note* Diagnosis Abnormal finding of diagnostic imaging- Primary Other nonspecific (abnormal) findings on radiological and other examinations of body structure 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 Malignant neoplasm of other specified sites of bladder Disorder of thyroid Unspecified disorder of thyroid documented in this encounter [facility] note* Diagnosis Elevated troponin- Primary Other abnormal blood chemistry documented in this encounter [facility] note* Diagnosis 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 Malignant neoplasm of other specified sites of bladder CKD (chronic kidney disease), stage V (HCC) Chronic kidney disease, Stage V Malignant neoplasm of urinary bladder, unspecified site (HCC) Disorder of thyroid Unspecified disorder of thyroid Abnormal blood chemistry Other abnormal blood chemistry documented in this encounter [facility] note* Diagnosis Pre-op evaluation- Primary Preoperative examination, unspecified Hypertensive heart disease with heart failure (HCC) 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 Gastro-esophageal reflux disease without esophagitis Esophageal reflux Ulcerative pancolitis (HCC) [place]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 Stage 3 chronic kidney [...] Loss of weight documented in this encounter [facility] note* Diagnosis Pre-op evaluation- Primary Preoperative examination, unspecified Hypertensive heart disease with heart failure (HCC) 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 Gastro-esophageal reflux disease without esophagitis Esophageal reflux Ulcerative pancolitis (HCC) [place]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 Stage 3 chronic kidney disease, unspecified whether stage 3a or 3b CKD (HCC) 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, unspecified laterality (HCC) Malignant neoplasm of overlapping sites of bladder (HCC) Malignant neoplasm of other specified sites of bladder documented in this encounter [facility] note* Diagnosis Pre-op evaluation- Primary Preoperative examination, unspecified Hypertensive heart disease with heart failure (HCC) 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 Gastro-esophageal reflux disease without esophagitis Esophageal reflux Ulcerative pancolitis (HCC) [place]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 Stage 3 chronic kidney [...] abnormal blood chemistry documented in this encounter [facility] note* Diagnosis Pre-op evaluation- Primary Preoperative examination, unspecified Hypertensive heart disease with heart failure (HCC) 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 Gastro-esophageal reflux disease without esophagitis Esophageal reflux Ulcerative pancolitis (HCC) [place]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 Stage 3 chronic kidney disease, unspecified whether stage 3a or 3b CKD (HCC) 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, unspecified laterality (HCC) Malignant neoplasm of overlapping sites of bladder (HCC) Malignant neoplasm of other specified sites of bladder documented in this encounter [facility] note* Diagnosis Pre-op evaluation- Primary Preoperative examination, unspecified Hypertensive heart disease with heart failure (HCC) 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 Gastro-esophageal reflux disease without esophagitis Esophageal reflux Ulcerative pancolitis (HCC) [place]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 Stage 3 chronic kidney disease, unspecified whether stage 3a or 3b CKD (HCC) 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, unspecified laterality (HCC) Malignant neoplasm of overlapping sites of bladder (HCC) Malignant neoplasm of other specified sites of bladder documented in this encounter [facility] note* Diagnosis Pre-op evaluation- Primary Preoperative examination, unspecified Hypertensive heart disease with heart failure (HCC) 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 Gastro-esophageal reflux disease without esophagitis Esophageal reflux Ulcerative pancolitis (HCC) [place]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 Stage 3 chronic kidney [...] unspecified site (HCC) documented in this encounter [facility] note* Diagnosis Chest discomfort- Primary Other chest pain documented in this encounter [facility]* Diagnosis Pre-op evaluation- Primary Preoperative examination, unspecified Hypertensive heart disease with heart failure (HCC) 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 Gastro-esophageal reflux disease without esophagitis Esophageal reflux Ulcerative pancolitis (HCC) [place]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 Stage 3 chronic kidney disease, unspecified whether stage 3a or 3b CKD (HCC) 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, unspecified laterality (HCC) Malignant neoplasm of overlapping sites of bladder (HCC) Malignant neoplasm of other specified sites of bladder documented in this encounter [facility] note* Diagnosis Congenital hypothyroidism Dyslipidemia Other and unspecified hyperlipidemia documented in this encounter [facility] note* Diagnosis Pre-op evaluation- Primary Preoperative examination, unspecified Hypertensive heart disease with heart failure (HCC) 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 Gastro-esophageal reflux disease without esophagitis Esophageal reflux Ulcerative pancolitis (HCC) [place]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 Stage 3 chronic kidney [...] of ureteric orifice [facility]* Diagnosis Abscess Cellulitis and abscess of unspecified site [facility]* Diagnosis Open wound of left chest wall, initial encounter- Primary 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 Infection of pacemaker pocket, initial encounter [facility] Diagnosis Open wound of left chest wall, initial encounter- Primary Pacemaker complications, initial encounter [facility]* Diagnosis Chest wall ulcer, 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, initial encounter Open wound of left chest wall, initial encounter documented [facility] N[facility]ative - Reported* Type Description Date Medical History colitis Medical HistoryhyperlipidemiaMedical HistoryHTNMedical HistoryKIDNEY CANCER Surgical HistoryKIDNEY REMOVED [place] Other History general Narrative - Reported* Type Description Date Medical History colitis Medical HistoryhyperlipidemiaMedical HistoryHTNMedical HistoryKIDNEY CANCER Surgical HistoryKIDNEY REMOVEDHospitalization HistoryNo Hospitalization history information [place] Other Hospital course Narrative No data available for this section [facility] [place] InstructionsNot on filedocumented in this encounter [facility] on filedocumented in this encounter [facility]ructionsNot on filedocumented in this encounter [facility] SystemInstructionsNot on filedocumented in this encounter [facility] No data available for this section [facility] [place] Reason for referral (narrative)* Outpatient Procedure (Routine) - Pending ReviewSpecialtyDiagnoses / ProceduresReferred By Contact [facility] Diagnoses 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, unspecified laterality (HCC) Procedures ECG COMPLETE ECG ROUTINE ECG W/LEAST 12 LDS W/I&R Galen Bhatt MD [address] [place] [address] [place] [address] Referral IDStatusReasonStart DateExpiration DateVisits RequestedVisits [id number] Auto-Generated Referral [facility] (narrative)* Outpatient Procedure (Routine) - ClosedSpecialtyDiagnoses / ProceduresReferred By ContactReferred To Contact [facility] Diagnoses Pre-op evaluation Procedures ECG COMPLETE ECG ROUTINE ECG W/LEAST 12 LDS W/I&R Fatimah Salcedo PA-C [address] [address] [place] [address] Referral IDStatusReasonEwen DateExpiration DateVisits RequestedVisits [id number] Auto-Generated Referral [facility] Summary Purpose Family History No Family History [...] Directive(s)08/11/2019 11:16 AMAdvance Directive(s)08/11/2019 11:21 AMTypeDate 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 Major Donor Coordinator ExplanationAdvance Directive(s)03/14/2022 4:48 PMAdvance Directive(s)11/01/2021 2:32 [...] Directive(s)08/11/2019 11:16 AMAdvance Directive(s)08/11/2019 11:21 AMTypeDate 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 Major Donor Coordinator ExplanationAdvance Directive(s)08/11/2019 11:21 AMTypeDate 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 RepresentativeExplanationAdvance Directive(s)08/11/2019 11:21 AMNameRelationship Healthcare Agent RelationshipCommunicationShoals Hospital HaysChildPrimary Decision Maker * NameRelationshipHealthcare Agent RelationshipCommunEast [facility] Primary Decision Maker* NameRelationshipHealthcare Agent RelationshipComP[facility] Primary Decision Maker* NameRelationshipHealthcare Agent RelationshipComPrisma [facility] Primary Decision Maker* Date ActivatedDate InactivatedComments04/19/2025 5:09 [...] Drug: Use appropriate PPE. Antineoplastic Irritant. New Bag/Syringe/Xnqwmp2601/15/2022 2:46 PM [id number] mg dexAMETHasone 10 mg/NS 50 mL (PYXIS) 10 mg ivpb 10 mg, INTRAVENOUS, ONCE, 1 dose, On Sat01/15/22 at 1330, Refrigerate. New Bag/Syringe/Mchjci3901/15/2022 1:41 PM EDT10 mg gemcitabine 1,950 mg in NaCl 0.9% 250 mL (GEMZAR) 1,950 mg (1,000 mg/m2 1.95 m2 Treatment Plan BSA from Recorded weight), INTRAVENOUS, Administer over 30 Minutes, ONCE, 1 dose, On Sat01/15/22 at 1330, Approx Total Volume: mL EXP:_01/16/2022@1930 Hazardous Chemotherapy Drug: Use appropriate PPE. Antineoplastic Irritant. New Bag/Syringe/Jdzvzd8301/15/2022 2:09 PM EDT1,950 mg palonosetron 0.25 mg [...] Drug: Use appropriate PPE. Antineoplastic Irritant. New Bag/Syringe/Mlcnma2901/22/2022 1:33 PM EDT1,950 mg ondansetron (PF) 8 [...] Drug: Use appropriate PPE. Antineoplastic Irritant. New Bag/Syringe/Vhngik1602/12/2022 2:58 PM [id number] mg dexAMETHasone 10 mg/NS 50 mL (PYXIS) 10 mg ivpb (DECADRON) 10 mg, INTRAVENOUS, ONCE, 1 dose, On Sat02/12/22 at 1400, Refrigerate. New Bag/Syringe/Eufvrw7102/12/2022 1:54 PM EDT10 mg gemcitabine 1,568 mg in NaCl 0.9% 250 mL (GEMZAR) 1,568 mg (800 mg/m2 1.96 m2 Treatment Plan BSA from Recorded weight), INTRAVENOUS, Administer over 30 Minutes, ONCE, 1 dose, On Sat02/12/22 at 1400, Approx Total Volume: mL EXP:_ 02/13/22 @ 1999 Hazardous Chemotherapy Drug: Use appropriate PPE. Antineoplastic Irritant. New Bag/Syringe/Sqouwr5702/12/2022 2:24 PM EDT1,568 mg palonosetron 0.25 mg [...] 01/02/23@2200 Administer with 0.2 micron filter. New Bag/Syringe/Msjzaw5201/02/2023 4:02 PM [id number] mgMedication OrderMAR Action Action DateDoseRateSite pembrolizumab 200 mg in NaCl 0.9% 66 mL (KEYTRUDA) 200 mg, INTRAVENOUS, Administer over 30 Minutes, ONCE, 1 dose, On Sat01/31/23 at 0930, EXP:L 01/31/23 1515 RT Administer with 0.2 micron filter. New Bag/Syringe/Jruuia3201/31/2023 9:33 AM [id number] mgMedication OrderMAR Action Action DateDoseRateSite pembrolizumab 200 mg in NaCl 0.9% 66 mL (KEYTRUDA) 200 mg, INTRAVENOUS, Administer over 30 Minutes, ONCE, 1 dose, On Sat04/04/23 at 1130, Approx TotalVolume: 66 mL EXP: 1900 Administer with 0.2 micron filter. New Bag/Syringe/Wiqntq6604/04/2023 11:30 AM [id number] mgMedication OrderMAR Action Action DateDoseRateSite pembrolizumab 200 mg in NaCl 0.9% 66 mL (KEYTRUDA) 200 mg, INTRAVENOUS, Administer over 30 Minutes, ONCE, 1 dose, On Sat04/25/23 at 1400, Approx TotalVolume: 66 mL EXP: 04/25/23 2000 Administer with 0.2 micron filter. New Bag/Syringe/Vgxjgg8104/25/2023 2:11 PM [id number] mgMedication OrderMAR Action Action DateDoseRateSite pembrolizumab 200 mg in NaCl 0.9% 66 mL (KEYTRUDA) 200 mg, INTRAVENOUS, Administer over 30 Minutes, ONCE, 1 dose, On Eusebia 05/16/23 at 1430, EXP: 0 RT Administer with 0.2 micron filter. New Bag/Syringe/Eojaej3005/16/2023 2:40 PM [id number] mgMedication OrderMAR Action Action DateDoseRateSite pembrolizumab 200 mg in NaCl 0.9% 66 mL (KEYTRUDA) 200 mg, INTRAVENOUS, Administer over 30 Minutes, ONCE, 1 dose, On Eusebia 06/06/23 at 1430, EXP: 06/06/23 2030 RT Administer with 0.2 micron filter. New Bag/Syringe/Nbdvet0306/06/2023 2:51 PM [id number] mgMedication OrderMAR Action Action DateDoseRateSite pembrolizumab 200 mg in NaCl 0.9% 66 mL (KEYTRUDA) 200 mg, INTRAVENOUS, Administer over 30 Minutes, ONCE, 1 dose, On Eusebia 06/27/23 at 1400, EXP: 214406/27/23 Administer with 0.2 micron filter. New Bag/Syringe/Fyycla6606/27/2023 2:26 PM [id number] mgMedication OrderMAR Action Action DateDoseRateSite pembrolizumab 200 mg in NaCl 0.9% 66 mL (KEYTRUDA) 200 mg, INTRAVENOUS, Administer over 30 Minutes, ONCE, 1 dose, On Eusebia 07/18/23 at 1400, EXP: 1400 07/19/23 RF Administer with 0.2 micron filter. New Bag/Syringe/Moilfb5107/18/2023 2:18 PM [id number] mgMedication OrderMAR Action Action DateDoseRateSite pembrolizumab 200 mg in NaCl 0.9% 66 mL (KEYTRUDA) 200 mg, INTRAVENOUS, Administer over 30 Minutes, ONCE, 1 dose, On Eusebia 09/19/23 at 1500, EXP: 2114 RTAdminister with 0.2 micron filter. New Bag/Syringe/Kbyxns4709/19/2023 3:19 PM [id number] mg Reason for Referral SpecialtyDiagnoses / ProceduresReferred By ContactReferred To ContactCT IMAGING Diagnoses Malignant neoplasm of overlapping sites of bladder (HCC) Procedures CT CHEST W IVCON DIAGNOSTIC COMPUTED TOMOGRAPHY THORAX W/CONTRAST Graeme Vazquez MD [address] [place] [address] [place] [address] Ct Imaging Referral IDStatusReasonStart DateExpiration DateVisits RequestedVisits [id number] Auto-Generated Referral [id number] / ProceduresReferred By ContactReferred To ContactCT IMAGING Diagnoses Malignant neoplasm of overlapping sites of bladder (HCC) Procedures CT ABD/PEL W IVCON CT ABD & PELVIS W/CONTRAST Graeme Vazquez MD [address] [place] [address] Ct Imaging Referral IDStatusReasonStart DateExpiration DateVisits RequestedVisits [id number] Auto-Generated Referral Additional Source Comments (unrecognized sect ion and content) No Status Records FoundNo Status Records FoundNo Status Records FoundNo Status Records FoundNo Status Records FoundNo Status Records FoundNo Status Records FoundNo Status Records FoundNo Status Records FoundNo Status Records Found INFORMATION SOURCE (unrecogn ized section and content) DATE CREATED AUTHOR 04/30/2018 [facility] DATE CREATED AUTHOR AUTHOR'S ORGANIZ ATION 03/06/2019 [facility] DATE CREATED AUTHOR AUTHOR'S ORGANIZ ATION 03/24/2023 [facility] DATE CREATED AUTHOR AUTHOR'S ORGANIZ ATION 04/27/2023 [facility] DATE CREATED AUTHOR AUTHOR'S ORGANIZ ATION 01/22/2025 [facility] DATE CREATED AUTHOR AUTHOR'S ORGANIZ ATION 04/08/2025 [facility] DATE CREATED AUTHOR AUTHOR'S ORGANIZ ATION 04/26/[address] [facility] DATE CREATED AUTHOR AUTHOR'S ORGANIZ ATION 05/09/2025 DATE CREATED AUTHOR AUTHOR'S ORGANIZ ATION 05/18/2025 [facility] DATE CREATED AUTHOR AUTHOR'S ORGANIZ ATION 07/21/2025 [facility] Source Comments (unrecognize d section and content) In the event this informatio n is protected by the Federal Confidentiality of Alcohol and Drug Abuse Patient Records regulations: The Federal rules restrict any use of the information to criminally investigate or prosecute any alcohol or drug abuse patient.[facility] MemorialIn the event this information is protected by the Federal Confidentiality of Alcohol and Drug Abuse Patient Records regulations: The Federal rules restrict any use of the information to criminally investigate or prosecute any alcohol or drug abuse patient.[facility] MemorialIn the event this information is protected by the Federal Confidentiality of Alcohol and Drug Abuse Patient Records regulations: The Federal rules restrict any use of the information to criminally investigate or prosecute any alcohol or drug abuse patient.[facility] MemorialIn the event this information is protected by the Federal Confidentiality of Alcohol and Drug Abuse Patient Records regulations: The Federal rules restrict any use of the information to criminally investigate or prosecute any alcohol or drug abuse patient.[facility] MemorialIn the event this information is protected by the Federal Confidentiality of Alcohol and Drug Abuse Patient Records regulations: The Federal rules restrict any use of the information to criminally investigate or prosecute any alcohol or drug abuse patient.[facility] MemorialIn the event this information is protected by the Federal Confidentiality of Alcohol and Drug Abuse Patient Records regulations: The Federal rules restrict any use of the information to criminally investigate or prosecute any alcohol or drug abuse patient.[facility] MemorialIn the event this information is protected by the Federal Confidentiality of Alcohol and Drug Abuse Patient Records regulations: The Federal rules restrict any use of the information to criminally investigate or prosecute any alcohol or drug abuse patient.[facility] MemorialIn the event this information is protected by the Federal Confidentiality of Alcohol and Drug Abuse Patient Records regulations: The Federal rules restrict any use of the information to criminally investigate or prosecute any alcohol or drug abuse patient.[facility] MemorialIn the event this information is protected by the Federal Confidentiality of Alcohol and Drug Abuse Patient Records regulations: The Federal rules restrict any use of the information to criminally investigate or prosecute any alcohol or drug abuse patient.[facility] MemorialIn the event this information is protected by the Federal Confidentiality of Alcohol and Drug Abuse Patient Records regulations: The Federal rules restrict any use of the information to criminally investigate or prosecute any alcohol or drug abuse patient.[facility] MemorialIn the event this information is protected by the Federal Confidentiality of Alcohol and Drug Abuse Patient Records regulations: The Federal rules restrict any use of the information to criminally investigate or prosecute any alcohol or drug abuse patient.[facility] MemorialIn the event this information is protected by the Federal Confidentiality of Alcohol and Drug Abuse Patient Records regulations: The Federal rules restrict any use of the information to criminally investigate or prosecute any alcohol or drug abuse patient.[facility] MemorialIn the event this information is protected by the Federal Confidentiality of Alcohol and Drug Abuse Patient Records regulations: The Federal rules restrict any use of the information to criminally investigate or prosecute any alcohol or drug abuse patient.[facility] MemorialIn the event this information is protected by the Federal Confidentiality of Alcohol and Drug Abuse Patient Records regulations: The Federal rules restrict any use of the information to criminally investigate or prosecute any alcohol or drug abuse patient.[facility] MemorialIn the event this information is protected by the Federal Confidentiality of Alcohol and Drug Abuse Patient Records regulations: The Federal rules restrict any use of the information to criminally investigate or prosecute any alcohol or drug abuse patient.[facility] MemorialIn the event this information is protected by the Federal Confidentiality of Alcohol and Drug Abuse Patient Records regulations: The Federal rules restrict any use of the information to criminally investigate or prosecute any alcohol or drug abuse patient.[facility] MemorialIn the event this information is protected by the Federal Confidentiality of Alcohol and Drug Abuse Patient Records regulations: The Federal rules restrict any use of the information to criminally investigate or prosecute any alcohol or drug abuse patient.[facility] MemorialIn the event this information is protected by the Federal Confidentiality of Alcohol and Drug Abuse Patient Records regulations: The Federal rules restrict any use of the information to criminally investigate or prosecute any alcohol or drug abuse patient.[facility] MemorialIn the event this information is protected by the Federal Confidentiality of Alcohol and Drug Abuse Patient Records regulations: The Federal rules restrict any use of the information to criminally investigate or prosecute any alcohol or drug abuse patient.[facility] MemorialIn the event this information is protected by the Federal Confidentiality of Alcohol and Drug Abuse Patient Records regulations: The Federal rules restrict any use of the information to criminally investigate or prosecute any alcohol or drug abuse patient.[facility] MemorialIn the event this information is protected by the Federal Confidentiality of Alcohol and Drug Abuse Patient Records regulations: The Federal rules restrict any use of the information to criminally investigate or prosecute any alcohol or drug abuse patient.[facility] MemorialIn the event this information is protected by the Federal Confidentiality of Alcohol and Drug Abuse Patient Records regulations: The Federal rules restrict any use of the information to criminally investigate or prosecute any alcohol or drug abuse patient.[facility] MemorialIn the event this information is protected by the Federal Confidentiality of Alcohol and Drug Abuse Patient Records regulations: The Federal rules restrict any use of the information to criminally investigate or prosecute any alcohol or drug abuse patient.[facility] MemorialIn the event this information is protected by the Federal Confidentiality of Alcohol and Drug Abuse Patient Records regulations: The Federal rules restrict any use of the information to criminally investigate or prosecute any alcohol or drug abuse patient.[facility] MemorialIn the event this information is protected by the Federal Confidentiality of Alcohol and Drug Abuse Patient Records regulations: The Federal rules restrict any use of the information to criminally investigate or prosecute any alcohol or drug abuse patient.[facility] MemorialIn the event this information is protected by the Federal Confidentiality of Alcohol and Drug Abuse Patient Records regulations: The Federal rules restrict any use of the information to criminally investigate or prosecute any alcohol or drug abuse patient.[facility] MemorialIn the event this information is protected by the Federal Confidentiality of Alcohol and Drug Abuse Patient Records regulations: The Federal rules restrict any use of the information to criminally investigate or prosecute any alcohol or drug abuse patient.[facility] MemorialIn the event this information is protected by the Federal Confidentiality of Alcohol and Drug Abuse Patient Records regulations: The Federal rules restrict any use of the information to criminally investigate or prosecute any alcohol or drug abuse patient.[facility] MemorialIn the event this information is protected by the Federal Confidentiality of Alcohol and Drug Abuse Patient Records regulations: The Federal rules restrict any use of the information to criminally investigate or prosecute any alcohol or drug abuse patient.[facility] MemorialIn the event this information is protected by the Federal Confidentiality of Alcohol and Drug Abuse Patient Records regulations: The Federal rules restrict any use of the information to criminally investigate or prosecute any alcohol or drug abuse patient.[facility] MemorialIn the event this information is protected by the Federal Confidentiality of Alcohol and Drug Abuse Patient Records regulations: The Federal rules restrict any use of the information to criminally investigate or prosecute any alcohol or drug abuse patient.[facility] MemorialIn the event this information is protected by the Federal Confidentiality of Alcohol and Drug Abuse Patient Records regulations: The Federal rules restrict any use of the information to criminally investigate or prosecute any alcohol or drug abuse patient.[facility] MemorialIn the event this information is protected by the Federal Confidentiality of Alcohol and Drug Abuse Patient Records regulations: The Federal rules restrict any use of the information to criminally investigate or prosecute any alcohol or drug abuse patient.[facility] MemorialIn the event this information is protected by the Federal Confidentiality of Alcohol and Drug Abuse Patient Records regulations: The Federal rules restrict any use of the information to criminally investigate or prosecute any alcohol or drug abuse patient.[facility] MemorialIn the event this information is protected by the Federal Confidentiality of Alcohol and Drug Abuse Patient Records regulations: The Federal rules restrict any use of the information to criminally investigate or prosecute any alcohol or drug abuse patient.[facility] MemorialIn the event this information is protected by the Federal Confidentiality of Alcohol and Drug Abuse Patient Records regulations: The Federal rules restrict any use of the information to criminally investigate or prosecute any alcohol or drug abuse patient.[facility] MemorialIn the event this information is protected by the Federal Confidentiality of Alcohol and Drug Abuse Patient Records regulations: The Federal rules restrict any use of the information to criminally investigate or prosecute any alcohol or drug abuse patient.[facility] MemorialIn the event this information is protected by the Federal Confidentiality of Alcohol and Drug Abuse Patient Records regulations: The Federal rules restrict any use of the information to criminally investigate or prosecute any alcohol or drug abuse patient.[facility] MemorialIn the event this information is protected by the Federal Confidentiality of Alcohol and Drug Abuse Patient Records regulations: The Federal rules restrict any use of the information to criminally investigate or prosecute any alcohol or drug abuse patient.[facility] MemorialIn the event this information is protected by the Federal Confidentiality of Alcohol and Drug Abuse Patient Records regulations: The Federal rules restrict any use of the information to criminally investigate or prosecute any alcohol or drug abuse patient.[facility] MemorialIn the event this information is protected by the Federal Confidentiality of Alcohol and Drug Abuse Patient Records regulations: The Federal rules restrict any use of the information to criminally investigate or prosecute any alcohol or drug abuse patient.[facility] MemorialIn the event this information is protected by the Federal Confidentiality of Alcohol and Drug Abuse Patient Records regulations: The Federal rules restrict any use of the information to criminally investigate or prosecute any alcohol or drug abuse patient.[facility] MemorialIn the event this information is protected by the Federal Confidentiality of Alcohol and Drug Abuse Patient Records regulations: The Federal rules restrict any use of the information to criminally investigate or prosecute any alcohol or drug abuse patient.[facility] MemorialIn the event this information is protected by the Federal Confidentiality of Alcohol and Drug Abuse Patient Records regulations: The Federal rules restrict any use of the information to criminally investigate or prosecute any alcohol or drug abuse patient.[facility] MemorialIn the event this information is protected by the Federal Confidentiality of Alcohol and Drug Abuse Patient Records regulations: The Federal rules restrict any use of the information to criminally investigate or prosecute any alcohol or drug abuse patient.[facility] MemorialIn the event this information is protected by the Federal Confidentiality of Alcohol and Drug Abuse Patient Records regulations: The Federal rules restrict any use of the information to criminally investigate or prosecute any alcohol or drug abuse patient.[facility] MemorialIn the event this information is protected by the Federal Confidentiality of Alcohol and Drug Abuse Patient Records regulations: The Federal rules restrict any use of the information to criminally investigate or prosecute any alcohol or drug abuse patient.[facility] MemorialIn the event this information is protected by the Federal Confidentiality of Alcohol and Drug Abuse Patient Records regulations: The Federal rules restrict any use of the information to criminally investigate or prosecute any alcohol or drug abuse patient.[facility] MemorialIn the event this information is protected by the Federal Confidentiality of Alcohol and Drug Abuse Patient Records regulations: The Federal rules restrict any use of the information to criminally investigate or prosecute any alcohol or drug abuse patient.[facility] MemorialIn the event this information is protected by the Federal Confidentiality of Alcohol and Drug Abuse Patient Records regulations: The Federal rules restrict any use of the information to criminally investigate or prosecute any alcohol or drug abuse patient.[facility] MemorialIn the event this information is protected by the Federal Confidentiality of Alcohol and Drug Abuse Patient Records regulations: The Federal rules restrict any use of the information to criminally investigate or prosecute any alcohol or drug abuse patient.[facility] MemorialIn the event this information is protected by the Federal Confidentiality of Alcohol and Drug Abuse Patient Records regulations: The Federal rules restrict any use of the information to criminally investigate or prosecute any alcohol or drug abuse patient.[facility] MemorialIn the event this information is protected by the Federal Confidentiality of Alcohol and Drug Abuse Patient Records regulations: The Federal rules restrict any use of the information to criminally investigate or prosecute any alcohol or drug abuse patient.[facility] MemorialIn the event this information is protected by the Federal Confidentiality of Alcohol and Drug Abuse Patient Records regulations: The Federal rules restrict any use of the information to criminally investigate or prosecute any alcohol or drug abuse patient.[facility] MemorialIn the event this information is protected by the Federal Confidentiality of Alcohol and Drug Abuse Patient Records regulations: The Federal rules restrict any use of the information to criminally investigate or prosecute any alcohol or drug abuse patient.[facility] MemorialIn the event this information is protected by the Federal Confidentiality of Alcohol and Drug Abuse Patient Records regulations: The Federal rules restrict any use of the information to criminally investigate or prosecute any alcohol or drug abuse patient.[facility] MemorialIn the event this information is protected by the Federal Confidentiality of Alcohol and Drug Abuse Patient Records regulations: The Federal rules restrict any use of the information to criminally investigate or prosecute any alcohol or drug abuse patient.[facility] MemorialIn the event this information is protected by the Federal Confidentiality of Alcohol and Drug Abuse Patient Records regulations: The Federal rules restrict any use of the information to criminally investigate or prosecute any alcohol or drug abuse patient.[facility] MemorialIn the event this information is protected by the Federal Confidentiality of Alcohol and Drug Abuse Patient Records regulations: The Federal rules restrict any use of the information to criminally investigate or prosecute any alcohol or drug abuse patient.[facility] MemorialIn the event this information is protected by the Federal Confidentiality of Alcohol and Drug Abuse Patient Records regulations: The Federal rules restrict any use of the information to criminally investigate or prosecute any alcohol or drug abuse patient.[facility] MemorialIn the event this information is protected by the Federal Confidentiality of Alcohol and Drug Abuse Patient Records regulations: The Federal rules restrict any use of the information to criminally investigate or prosecute any alcohol or drug abuse patient.[facility] MemorialIn the event this information is protected by the Federal Confidentiality of Alcohol and Drug Abuse Patient Records regulations: The Federal rules restrict any use of the information to criminally investigate or prosecute any alcohol or drug abuse patient.[facility] MemorialIn the event this information is protected by the Federal Confidentiality of Alcohol and Drug Abuse Patient Records regulations: The Federal rules restrict any use of the information to criminally investigate or prosecute any alcohol or drug abuse patient.[facility] MemorialIn the event this information is protected by the Federal Confidentiality of Alcohol and Drug Abuse Patient Records regulations: The Federal rules restrict any use of the information to criminally investigate or prosecute any alcohol or drug abuse patient.[facility] MemorialIn the event this information is protected by the Federal Confidentiality of Alcohol and Drug Abuse Patient Records regulations: The Federal rules restrict any use of the information to criminally investigate or prosecute any alcohol or drug abuse patient.[facility] MemorialIn the event this information is protected by the Federal Confidentiality of Alcohol and Drug Abuse Patient Records regulations: The Federal rules restrict any use of the information to criminally investigate or prosecute any alcohol or drug abuse patient.[facility] Reason for Visit (unrecogniz ed section and content) ReasonCommentsmalignant neoplasm of ureterfollow up treatmentReasonComments ureter cancerSpecialtyDiagnoses / ProceduresReferred By ContactReferred To Contact Diagnoses Malignant neoplasm of ureter (HCC) Soren Perea MD [address] [place] [address] [place] [address] [facility] [address] [place] [address] Referral IDStatusReasonStart DateExpiration DateVisits RequestedVisits [id number]/[id number] cancer follow up treatmentReasonCommentsmalignant neoplasm of ureterReasonCommentsPre- Op TeachingReasonCommentsFollow UpReasonCommentsPre-Op VisitReasonCommentsPre-Op ExamReasonCommentsFollow UpReasonCommentsUreteral cancerTransition of care ReasonCommentsCare CoordinationReschedule appointmentReasonCommentsPatient UpdateReasonCommentsNon-Chemotherapy TreatmentPembrolizumabSpecialtyDiagnoses / ProceduresReferred By ContactReferred To Contact Diagnoses Malignant neoplasm of ureter, 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, 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) Graeme Vazquez MD [address] [place] [address] [place] [address] [facility] [address] [place] [address] Referral IDStatusReasonStart DateExpiration DateVisits RequestedVisits [id number]/13/20236/[id number] [id number] Post Treatment CallReasonCommentsMalignant neoplasm of ureter New start treatmentReasonCommentsBladder CancerReasonCommentsReturn Call Request Call ptReasonCommentsBladder CancerReasonCommentsRadiology CTReasonOnset Date CommentsRefill [id number]/31/2023ReasonCommentsBladder CancerTreatment visit ReasonCommentsPost-Op VisitReasonCommentsCare CoordinationSore ThroatReason CommentsCare CoordinationFollow Up AppointmentSpecialtyDiagnoses / Procedures Referred By ContactReferred To Contact Diagnoses Malignant neoplasm of ureter, 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 Right sided sharp pains worsening with deep breath.ReasonCommentsCare CoordinationDiarrhea >1 monthReasonCommentsAppointment CancelledDiarrheaReason CommentsRadiology CTSpecialtyDiagnoses / ProceduresReferred By ContactReferred To ContactCT IMAGING Diagnoses Malignant neoplasm of urinary bladder, unspecified site (HCC) Procedures CT ABD/PEL W IVCON CT ABD & PELVIS W/CONTRAST Patricia Conteh, GROUP PRACTICE PEDIATRICIAN.[address] [place] [address] [place] [address] Referral IDStatusReasonStart DateExpiration DateVisits RequestedVisits [id number] Auto-Generated Referral [id number] / ProceduresReferred By ContactReferred To ContactCT IMAGING Diagnoses Malignant neoplasm of overlapping sites of bladder (HCC) Procedures CT CHEST W IVCON DIAGNOSTIC COMPUTED TOMOGRAPHY THORAX W/CONTRAST Graeme Vazquez MD [address] [place] [address] [address] [place] [id number] [facility] Referral IDStatusReasonStart DateExpiration DateVisits RequestedVisits [id number] Auto-Generated Referral /[id number] / ProceduresReferred By ContactReferred To ContactCT IMAGING Diagnoses 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), 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, unspecified site (HCC) Disorder of thyroid Abnormal blood chemistry Procedures CT ABD/PEL W IVCON CT ABD & PELVIS W/CONTRAST Graeme Vazquez MD [address] [place] [address] [address] [place] [id number] [facility] [place] [address] Referral IDStatusReasonStart DateExpiration DateVisits RequestedVisits [id number] Auto-Generated Referral /[id number] IDStatusReasonStart DateExpiration DateVisits RequestedVisits [id number] Auto-Generated Referral /[id number] CTSpecialtyDiagnoses / Procedures Referred By ContactReferred To ContactCT IMAGING Diagnoses Malignant neoplasm of overlapping sites of bladder (HCC) Procedures CT CHEST WO IVCON DIAGNOSTIC COMPUTED TOMOGRAPHY THORAX W/O CNTRST Patricia Conteh, GROUP PRACTICE PEDIATRICIAN.BUSINESS RECORDS MANAGER [address] [place] [id number] Ct Imaging [facility]95 Referral IDStatusReasonStart DateExpiration DateVisits RequestedVisits [id number] Auto-Generated Referral /[id number]dvkj feels like its moving . Referral IDStatusReasonStart DateExpiration DateVisits RequestedVisits [id number] Auto-Generated Referral /[id number] CheckSpecialtyDiagnoses / Procedures Referred By ContactReferred To ContactWound Care Diagnoses Surgical wound present Open wound of left chest wall, initial encounter Mahogany Fragoso, [facility] [address] [place] [address] Phone: tel: fax: [facility] [address] [place] [phone] Phone: tel: Referral IDStatusReasonStart DateExpiration DateVisits RequestedVisits [id number] Review Specialty Services Required 1ReasonOnset DateCommentsExtraction site05/05/2025ReasonOnset VreaWuzsqdkeJojpyvlm08/23/3711XnegdrBaptsvzjNnavyg-sbiw-hgjgf-scheduled w/ptstatus post dual-chamber leadless pacemakerChest infection due to the pacemakerAtrial FibrillationShortness of BreathReasonCommentsWound Check SpecialtyDiagnoses / ProceduresReferred By ContactReferred To ContactWound Care Diagnoses Surgical wound present Open wound of left chest wall, initial encounter Mahogany Fragoso, GROUP PRACTICE PEDIATRICIANBUSINESS RECORDS MANAGER [address] [place] [address] Phone: tel: fax: [facility] [address] [place] [phone] Phone: tel: Referral IDStatusReasonStart DateExpiration DateVisits RequestedVisits [id number] Review Specialty Services Required Care Teams (unrecognized sec tion and content) Team MemberRelationshipSpecialtyStart DateEnd Date Sergio Sneed MD [address] [place] [address] PCP - GeneralFamily Uklnlind69/17/19 Jian Rodriguez MD [address] [place] [address] PhysicianUrology1 Lauren Mckeon, RN [address] [facility] [place] [address] Specialty Care CoordinatorHematology/Oncology11/21/21 Soren Perea MD [address] [facility] [place] [address] PhysicianHematology/Oncology11/21/21 Corazon Maxwell, PAEnocC [address] [facility] [place] [address] Physician AssistantHematology/Oncology11/21/21Te MemberRelationshipSpecialty Start DateEnd Date Sergio Sneed MD [address] [place] [address] PCP - GeneralFamily Iexvykyd61/17/19 Jian Rodriguez MD [address] [place] [address] PhysicianUrology1 Lauren Mckeon, RN [address] [facility] [place] [address] Specialty Care CoordinatorHematology/Oncology11/21/21 Soren Perea MD [address] [facility] [address] [place], [facility]70 PhysicianHematology/Oncology2 Corazon Maxwell, PAEnocC [address] [facility] [place] [address] Physician AssistantHematology/Oncology11/21/21Te MemberRelationshipSpecialty Start DateEnd Date Sergio Sneed MD [address] [place] [address] PCP - GeneralFamily Tgynfngy15/17/19 Jian Rodriguez MD [address] [place] [address] PhysicianUrology1/ Lauren Mckeon, RN [address] [facility] [place] [address] Specialty Care CoordinatorHematology/Oncology11/21/21 Soren Perea MD [address] [facility] [address] [place], [facility]70 PhysicianHematology/Oncology11/21/21 Corazon Maxwell, PAEnocC [address] [facility] [place] [address] Physician AssistantHematology/Oncology11/21/21Te MemberRelationshipSpecialty Start DateEnd Date Sergio Sneed MD [address] [place] [id number] PCP - GeneralFamily Xccwfgkr56/17/19 Jian Rodriguez MD [address] [place] [address] PhysicianUrology1 Lauren Mckeon, RN [address] [facility] [place] [address] Specialty Care CoordinatorHematology/Oncology11/21/21 Soren Perea MD [address] [facility] [address] [place], [facility]70 PhysicianHematology/Oncology11/21/21 Corazon Maxwell, PA-C [address] [facility] [place] [address] Physician AssistantHematology/Oncology11/21/21Te MemberRelationshipSpecialty Start DateEnd Date Sergio Sneed MD [address] [place] [address] PCP - GeneralFamily Wnhsenrt43/17/19 Jian Rodriguez MD [address] [place] [address] PhysicianUrology1 Lauren Mckeon, RN [address] [facility] [place] [address] Specialty Care CoordinatorHematology/Oncology2 Soren Perea MD [address] [facility] [place] [address] PhysicianHematology/Oncology2 Corazon Maxwell PA-C [address] [facility] [place] [address] Physician AssistantHematology/Oncology11/21/21Te MemberRelationshipSpecialty Start DateEnd Date Sergio Sneed MD [address] [place] [address] PCP - GeneralFamily Hhzyjsur62/17/19 Jian Rodriguez MD [address] [place] [address] PhysicianUrology1 Lauren Mckeon, RN [address] [facility] [place] [address] Specialty Care CoordinatorHematology/Oncology11/21/21 Soren Perea MD [address] [facility] [place] [address] PhysicianHematology/Oncology2 Corazon Maxwell PA-C [address] [facility] [place] [address] Physician AssistantHematology/Oncology11/21/21Te MemberRelationshipSpecialty Start DateEnd Date Sergio Sneed MD [address] [place] [address] PCP - GeneralFamily Octnexcv59/17/19 Jian Rodriguez MD [address] [place] [address] PhysicianUrology1/ Lauren Mckeon RN [address] [place] [address] Specialty Care CoordinatorHematology/Oncology2 Soren Perea MD [address] [facility] [place] [address] PhysicianHematology/Oncology2 Corazon Maxwell, CHRISTINA [address] [place] [address] Physician AssistantHematology/Oncology2Te MemberRelationshipSpecialty Start DateEnd Date Sergio Sneed MD [address] [place] [address] PCP - GeneralFamily Zjtspqco42/17/19 Jian Rodriguez MD [address] [place] [address] PhysicianUrology1 Lauren Mckeon RN [address] [place] [address] Specialty Care CoordinatorHematology/Oncology11/21/21 Soren Perea MD [address] [facility] [address] [place], [facility]70 PhysicianHematology/Oncology2 Corazon Maxwell PA-C [address] [place] [address] Physician AssistantHematology/Oncology11/21/21Te MemberRelationshipSpecialty Start DateEnd Date Sergio Sneed MD [address] [place] [address] PCP - GeneralFamily Pliuepju24/17/19 Jian Rodriguez MD [address] [place] [address] PhysicianUrology1//20 Lauren Mckeon, RN [address] [facility] [place] [place] [address] Specialty Care CoordinatorHematology/Oncology11/21/21 Soren Perea MD [address] [facility] [place] [address] PhysicianHematology/Oncology11/21/21 Corazon Maxwell PA-C [address] [facility] [address] [place], [facility]70 Physician AssistantHematology/Oncology11/21/21Te MemberRelationshipSpecialty Start DateEnd Date Sergio Sneed MD [address] [place] [address] PCP - GeneralFamily Hvbaorbd56/17/19 Jian Rodriguez MD [address] [place] [address] PhysicianUrolog10/28/19 Lauren Mckeon, RN [address] [place] [address] Specialty Care CoordinatorHematology/Oncology11/21/21 Soren Perea MD [address] [facility] [address] [place], [facility]70 PhysicianHematology/Oncology11/21/21 Corazon Maxwell PA-C [address] [place], [facility]70 Physician AssistantHematology/Oncology11/21/21Te MemberRelationshipSpecialty Start DateEnd Date Sergio Sneed MD [address] [place] [address] PCP - GeneralFamily Wvvfgbrk64/17/19 Jian Rodriguez MD [address] [place] [address] PhysicianUrology1 Lauren Mckeon, RN [address] [place] [address] Specialty Care CoordinatorHematology/Oncology11/21/21 Soren Perea MD [address] [facility] [place] [address] PhysicianHematology/Oncology11/21/21 Corazon Maxwell, PA-C [address] [place] [address] Physician AssistantHematology/Oncology11/21/21Te MemberRelationshipSpecialty Start DateEnd Date Sergio Sneed MD [address] [place] [address] PCP - GeneralFamily Yhkhiiuj44/17/19 Jian Rodriguez MD [address] [place] [address] PhysicianUrology1 Soren Perea MD [address] [facility] [address] [place], [facility]70 PhysicianHematology/Oncology11/21/21 Keven Castaneda MD [address] [facility] [address] [place] [address] Ealhcexiqw34/30/22Te MemberRelationshipSpecialtyStart DateEnd Date Sergio Sneed MD [address] [place] [address] PCP - GeneralFamily Avelpjlx63/17/19 Jian Rodriguez MD [address] [place] [address] PhysicianUrolog10/28/19 Soren Perea MD [address] [facility] [place] [address] PhysicianHematology/Oncology11/21/21 Keven Castaneda MD [address] [facility] [address] [place] [address] Yggukgdxic26/30/22Te MemberRelationshipSpecialtyStart DateEnd Date Sergio Sneed MD [address] [place] [address] PCP - GeneralFamily Vvecmcsg93/17/19 Jian Rodriguez MD [address] [place] [address] PhysicianUrology1 Soren Perea MD [address] [facility] [place] [address] PhysicianHematology/Oncology2 Keven Castaneda MD [address] [facility] [address] [place] [phone] Udnuspwmaa03/30/22Te MemberRelationshipSpecialtyStart DateEnd Date Sergio Sneed MD [address] [place] [address] PCP - GeneralFamily Cploqkti57/17/19 Jian Rodriguez MD [address] [place] [address] PhysicianUrology1 Soren Perea MD [address] [facility] [place] [address] PhysicianHematology/Oncology2 Keven Castaneda MD [address] [facility] [address] [place] [address] Kdvtgmlvfn98/30/22Te MemberRelationshipSpecialtyStart DateEnd Date Sergio Sneed MD [address] [place] [address] PCP - GeneralFamily Xfqntxur22/17/19 Jian Rodriguez MD [address] [place] [address] PhysicianUrolog10/28/19 Soren Perea MD [address] [facility] [place] [address] PhysicianHematology/Oncology11/21/21 Keven Castaneda MD [address] [place] [address] Pzykecehme59/30/22Team MemberRelationshipSpecialtyStart DateEnd Date Sergio Sneed MD [address] [place] [id number] PCP - GeneralFamily Vuquaqrr76/17/19 Jian Rodriguez MD [address] [place] [address] PhysicianUrolog10/28/19 Soren Perea MD [address] [facility] [address] [place], [facility]70 PhysicianHematology/Oncology11/21/21 Keven Castaneda MD [address] [place] [address] Suqmipbyfy20/30/22Team MemberRelationshipSpecialtyStart DateEnd Date Sergio Sneed MD PCP - GeneralFamily Ehumhbsn76/17/19 Jian Rodriguez MD [address] [place] [address] PhysicianUrolog10/28/19 Keven Castaneda MD [address] [place] [address] Mnqpilhgdy72/30/22 Graeme Vazquez MD [address] [place] [address] PhysicianHematology/Oncology12/26/22 Margot So, SUNIL [address] [place] [address] Specialty Care CoordinatorHematology/Oncology12/26/22 Patricia Conteh, GROUP PRACTICE PEDIATRICIAN.BUSINESS RECORDS MANAGER [address] [place] [address] Nurse PractitionerHematology/Oncology12/26/22Team MemberRelationshipSpecialty Start DateEnd Date Sergio Sneed MD PCP - GeneralFamily Xlaxbwax17/17/19 Jian Rodriguez MD [address] [place] [address] PhysicianUrolog10/28/19 Keven Castaneda MD [address] [place] [address] Nkcwwchglz11/30/22 Graeme Vazquez MD [address] [place] [address] PhysicianHematology/Oncology12/26/22 Margot So, SUNIL [address] [place] [address] Specialty Care CoordinatorHematology/Oncology12/26/22 Patricia Conteh, GROUP PRACTICE PEDIATRICIAN.BUSINESS RECORDS MANAGER [address] [place] [address] Nurse PractitionerHematology/Oncology12/26/22Team MemberRelationshipSpecialty Start DateEnd Date Sergio Sneed MD PCP - GeneralFamily Eyjnrsnk44/17/19 Jian Rodriguez MD [address] [place] [address] PhysicianUrolog10/28/19 Keven Castaneda MD [address] [place] [address] Nrxoexgrfs62/30/22 Graeme Vazquez MD [address] [place] [address] PhysicianHematology/Oncology12/26/22 Margot So, RN [address] [place] [address] Specialty Care CoordinatorHematology/Oncology12/26/22 Patricia Conteh, GROUP PRACTICE PEDIATRICIAN.BUSINESS RECORDS MANAGER [address] [place] [address] Nurse PractitionerHematology/Oncology12/26/22Team MemberRelationshipSpecialty Start DateEnd Sergio Sneed MD PCP - GeneralFamily Lywowrbn82/17/19 Jian Rodriguez MD [address] [place] [address] PhysicianUrolog10/28/19 Keven Castaneda MD [address] [place] [address] Dqxggomxqa34/30/22 Graeme Vazquez MD [address] [place] [address] PhysicianHematology/Oncology12/26/22 Margot So, RN [address] [place] [address] Specialty Care CoordinatorHematology/Oncology12/26/22 Patricia Conteh, GROUP PRACTICE PEDIATRICIAN.BUSINESS RECORDS MANAGER [address] [place] [address] Nurse PractitionerHematology/Oncology12/26/22Team MemberRelationshipSpecialty Start DateEnd Date Sergio Sneed MD PCP - [facility] Udnezsbn43/17/19 Jian Rodriguez MD [address] [place] [address] PhysicianUrolog10/28/19 Keven Castaneda MD [address] [place] [address] Poqqxfnxtf97/30/22 Graeme Vazquez MD [address] [place] [address] PhysicianHematology/Oncology12/26/22 Margot So, SUNIL [address] [place] [address] Specialty Care CoordinatorHematology/Oncology12/26/22 Patricia Conteh, GROUP PRACTICE PEDIATRICIAN.BUSINESS RECORDS MANAGER [address] [place] [address] Nurse PractitionerHematology/Oncology12/26/22Te MemberRelationshipSpecialty Start DateEnd Date Sergio Sneed MD PCP - [facility] Ilizrhww34/17/19 Jian Rodriguez MD [address] [place] [address] PhysicianUrolog10/28/19 Keven Castaneda MD [address] [place] [address] Dqyiozbmbz21/30/22 Graeme Vazquez MD [address] [place] [address] PhysicianHematology/Oncology3 Margot So, SUNIL [address] [place] [address] Specialty Care CoordinatorHematology/Oncology12/26/22 Patricia Conteh, GROUP PRACTICE PEDIATRICIAN.BUSINESS RECORDS MANAGER [address] [place] [address] Nurse PractitionerHematology/Oncology12/26/22Team MemberRelationshipSpecialty Start DateEnd Date Sergio Sneed MD PCP - GeneralFamily Klcgxqet83/17/19 Jian Rodriguez MD PhysicianUrolog10/28/19 Keven Castaneda MD [address] [place] [address] Itxduhjghd90/30/22 Graeme Vazquez MD [address] [place] [address] PhysicianHematology/Oncology12/26/22 Margot So, SUNIL [address] [place] [address] Specialty Care CoordinatorHematology/Oncology12/26/22 Patricia Conteh, GROUP PRACTICE PEDIATRICIAN.BUSINESS RECORDS MANAGER [address] [place] [address] Nurse PractitionerHematology/Oncology3Team MemberRelationshipSpecialty Start DateEnd Date Sergio Sneed MD PCP - GeneralFamily Orecvyoa63/17/19 Jian Rodriguez MD PhysicianUrolog10/28/19 Keven Castaneda MD [address] [facility] [address] [place] [address] Jzjbcglosb07/30/22 Graeme Vazquez MD [address] [place] [address] PhysicianHematology/Oncology12/26/22 Margot So, SUNIL [address] [place] [address] Specialty Care CoordinatorHematology/Oncology12/26/22 Patricia Conteh, GROUP PRACTICE PEDIATRICIAN.[facility] [address] [place] [address] Nurse PractitionerHematology/Oncology12/26/22Team MemberRelationshipSpecialty Start DateEnd Sergio Sneed MD PCP - GeneralFamily Xemovoio82/17/19 Jian Rodriguez MD PhysicianUrolog10/28/19 Keven Castaneda MD [address] [facility] [address] [place] [address] Fknbkqoduy65/30/22 Graeme Vazquez MD [address] [place] [address] [place] [address] PhysicianHematology/Oncology3 Margot So, SUNIL [address] [facility] [place] [address] Specialty Care CoordinatorHematology/Oncology12/26/22 Patricia Conteh, GROUP PRACTICE PEDIATRICIAN.BUSINESS RECORDS MANAGER [address] [place] [address] Nurse PractitionerHematology/Oncology12/26/22Team MemberRelationshipSpecialty Start DateEnd Date Sergio Sneed MD PCP - GeneralFami Jciwoiwj42/17/19 Jian Rodriguez MD PhysicianUrolog10/28/19 Keven Castaneda MD [address] [facility] [address] [place] [address] Adswnjopvl96/30/22 Graeme Vazquez MD [address] [place] [address] PhysicianHematology/Oncology12/26/22 Margot So RN [address] [facility] [place] [address] Specialty Care CoordinatorHematology/Oncology12/26/22 Patricia Conteh, GROUP PRACTICE PEDIATRICIAN.BUSINESS RECORDS MANAGER [address] [place] [address] Nurse PractitionerHematology/Oncology12/26/22Team MemberRelationshipSpecialty Start DateEnd Date Sergio Sneed MD PCP - GeneralFamily Nuteyceh44/17/19 Jian Rodriguez MD PhysicianUrology1 Keven Castaneda MD [address] [facility] [address] [place] [address] Lkuqkkijcf50/30/22 Graeme Vazquez MD [address] [facility] [place] [address] PhysicianHematology/Oncology12/26/22 Margot So, SUNIL [address] [facility] [place] [address] Specialty Care CoordinatorHematology/Oncology12/26/22 Patricia Conteh APRN.BUSINESS RECORDS MANAGER [address] [facility] [place] [address] Nurse PractitionerHematology/Oncology12/26/22Team MemberRelationshipSpecialty Start DateEnd Date Sergio Sneed MD PCP - GeneralFamily Tnngdvqp60/17/19 Jian Rodriguez MD PhysicianUrology1 Keven Castaneda MD [address] [facility] [address] [place] [address] Serbxaiqyx45/30/22 Graeme Vazquez MD [address] [facility] [place] [address] PhysicianHematology/Oncology12/26/22 Margot So, SUNIL [address] [place] [address] Specialty Care CoordinatorHematology/Oncology12/26/22 Patricia Conteh APRN.BUSINESS RECORDS MANAGER [address] [place] [address] [place] [address] Nurse PractitionerHematology/Oncology12/26/22Team MemberRelationshipSpecialty Start DateEnd Date Sergio Sneed MD PCP - GeneralFamily Syrxdceo34/17/19 Jian Rodriguez MD PhysicianUrolog10/28/19Te MemberRelationshipSpecialtyStart DateEnd Date Sergio Sneed MD PCP - GeneralFamily Dtrtmjuo13/17/19 Jian Rodriguez MD PhysicianUrolog10/28/19 Keven Castaneda MD [address] [facility] [address] [place] [address] Bmzrwerjmw08/30/22 Graeme Vazquez MD [address] [place] [address] [place] [address] PhysicianHematology/Oncology12/26/22 Margot So, SUNIL [address] [place] [address] Specialty Care CoordinatorHematology/Oncology3 Patricia Conteh, GROUP PRACTICE PEDIATRICIAN.BUSINESS RECORDS MANAGER [address] [place] [address] Nurse PractitionerHematology/Oncology12/26/22Team MemberRelationshipSpecialty Start DateEnd Date Sergio Sneed MD PCP - GeneralFamily Podtxsaw09/17/19 Jian Rodriguez MD PhysicianUrolog10/28/19 Keven Castaneda MD [address] [facility] [address] [place] [address] Ucdwcdfyqc18/30/22 Graeme Vazquez MD [address] [place] [address] PhysicianHematology/Oncology12/26/22 Margot So, RN [address] [place] [address] Specialty Care CoordinatorHematology/Oncology12/26/22 Patricia Conteh, GROUP PRACTICE PEDIATRICIAN.BUSINESS RECORDS MANAGER [address] [place] [address] Nurse PractitionerHematology/Oncology12/26/22Team MemberRelationshipSpecialty Start DateEnd Date Sergio Sneed MD PCP - GeneralFamily Toiijkeo29/17/19 Jian Rodriguez MD PhysicianUrolog10/28/19 Keven Castaneda MD [address] [place] [address] Jkybhkixoy61/30/22 Graeme Vazquez MD [address] [place] [address] PhysicianHematology/Oncology12/26/22 Margot So, SUNIL [address] [facility] [place] [place] [address] Specialty Care CoordinatorHematology/Oncology12/26/22 Patricia Conteh APRN.BUSINESS RECORDS MANAGER [address] [place] [address] [address] [place], [facility]70 Nurse PractitionerHematology/Oncology12/26/22Team MemberRelationshipSpecialty Start DateEnd Sergio Sneed MD PCP - GeneralFamily Tkymsqpi53/17/19 Jian Rodriguez MD PhysicianUrolog10/28/19 Keven Castaneda MD [address] [facility] [address] [place] [address] Eyclsxdmra33/30/22 Graeme Vazquez MD [address] [place] [address] PhysicianHematology/Oncology12/26/22 Margot So, RN [address] [place] [address] Specialty Care CoordinatorHematology/Oncology12/26/22 Patricia Conteh, GROUP PRACTICE PEDIATRICIAN.BUSINESS RECORDS MANAGER [address] [place] [address] Nurse PractitionerHematology/Oncology12/26/22Team MemberRelationshipSpecialty Start DateEnd Date Sergio Sneed MD PCP - GeneralFamily Mikptytw38/17/19 Jian Rodriguez MD PhysicianUrolog10/28/19 Keven Castaneda MD [address] [facility] [address] [place] [address] Ibnxephuun73/30/22 Graeme Vazquez MD [address] [place] [address] PhysicianHematology/Oncology12/26/22 Margot So RN [address] [place] [address] Specialty Care CoordinatorHematology/Oncology12/26/22 Patricia Conteh, GROUP PRACTICE PEDIATRICIAN.BUSINESS RECORDS MANAGER [address] [place] [address] Nurse PractitionerHematology/Oncology12/26/22Team MemberRelationshipSpecialty Start DateEnd Date Sergio Sneed MD PCP - GeneralFamily Trnuuhkv99/17/19 Jian Rodriguez MD PhysicianUrology1 Keven Castaneda MD [address] [facility] [address] [place] [address] Mjgpqyflvr23/30/22 Graeme Vazquez MD [address] [facility] [place] [address] PhysicianHematology/Oncology12/26/22 Margot So, RN [address] [facility] [place] [address] Specialty Care CoordinatorHematology/Oncology12/26/22 Patricia Conteh, MARSHA.BUSINESS RECORDS MANAGER [address] [place] [address] Nurse PractitionerHematology/Oncology12/26/22Team MemberRelationshipSpecialty Start DateEnd Date Sergio Sneed MD PCP - GeneralFamily Giexqsxm35/17/19 Jian Rodriguez MD PhysicianUrology1 Keven Castaneda MD [address] [facility] [address] [place] [address] Bogwkvbpid72/30/22 Graeme Vazquez MD [address] [place] [address] PhysicianHematology/Oncology3 Margot So, SUNIL [address] [place] [address] Specialty Care CoordinatorHematology/Oncology12/26/22 Patricia Conteh, GROUP PRACTICE PEDIATRICIAN.BUSINESS RECORDS MANAGER [address] [place] [address] Nurse PractitionerHematology/Oncology12/26/22Team MemberRelationshipSpecialty Start DateEnd Date Sergio Sneed MD PCP - Generalmi Bnvmqtkp76/17/19 Jian Rodriguez MD PhysicianUrolog10/28/19 Keven Castaneda MD [address] [place] [address] Qyvxmlzilt19/30/22 Graeme Vazquez MD [address] [place] [address] PhysicianHematology/Oncology12/26/22 Margot So RN [address] [place] [address] Specialty Care CoordinatorHematology/Oncology12/26/22 Patricia Conteh, GROUP PRACTICE PEDIATRICIAN.BUSINESS RECORDS MANAGER [address] [place] [address] Nurse PractitionerHematology/Oncology12/26/22Team MemberRelationshipSpecialty Start DateEnd Date Sergio Sneed MD PCP - GeneralFamily Zhltavqd39/17/19 Jian Rodriguez MD PhysicianUrology1 Keven Castaneda MD [address] [facility] [address] [place] [address] Kxtqhcglcc77/30/22 Graeme Vazquez MD [address] [place] [address] PhysicianHematology/Oncology12/26/22 Margot So, SUNIL [address] [facility] [address] Specialty Care CoordinatorHematology/Oncology12/26/22 Patricia Conteh APRN.BUSINESS RECORDS MANAGER [address] [facility] [address] Nurse PractitionerHematology/Oncology12/26/22Team MemberRelationshipSpecialty Start DateEnd Date Sergio Sneed MD PCP - GeneralFamily Gjgzlorg63/17/19 Jian Rodriguez MD PhysicianUrology1 Keven Castaneda MD [address] [facility] [address] [facility] [place] [id number] Lqjaxnxpnc66/30/22 Graeme Vazquez MD [address] [facility] [place] [address] PhysicianHematology/Oncology3 Margot So, SUNIL [address] [place] [address] Specialty Care CoordinatorHematology/Oncology3 Patricia Conteh, GROUP PRACTICE PEDIATRICIAN.BUSINESS RECORDS MANAGER [address] [place] [address] [place] [address] Nurse PractitionerHematology/Oncology12/26/22Team MemberRelationshipSpecialty Start DateEnd Date Sergio Sneed MD PCP - GeneralFamily Rrkbbcxw37/17/19 Jian Rodriguez MD PhysicianUrolog10/28/19 Keven Castaneda MD [address] [facility] [address] [place] [address] Oyhvrrlvxl68/30/22 Graeme Vazquez MD [address] [place] [address] [place] [address] PhysicianHematology/Oncology12/26/22 Margot So, SUNIL [address] [place] [address] Specialty Care CoordinatorHematology/Oncology12/26/22 Patricia Conteh, GROUP PRACTICE PEDIATRICIAN.BUSINESS RECORDS MANAGER [address] [place] [address] [place] [address] Nurse PractitionerHematology/Oncology3Team MemberRelationshipSpecialty Start DateEnd Date Sergio Sneed MD PCP - GeneralFamily Zxqyibbx17/17/19 Jian Rodriguez MD PhysicianUrolog10/28/19 Keven Castaneda MD [address] [facility] [address] Yeeqeviluc66/30/22 Graeme Vazquez MD [address] [place] [address] [place] [address] PhysicianHematology/Oncology12/26/22 Margot So, SUNIL [address] [place] [id number] Specialty Care CoordinatorHematology/Oncology12/26/22 Patricia Conteh APRN.BUSINESS RECORDS MANAGER [address] [place] [address] [place] [address] Nurse PractitionerHematology/Oncology12/26/22Team MemberRelationshipSpecialty Start DateEnd Date Sergio Sneed MD PCP - GeneralFamily Yzktlfhi03/17/19 Jian Rodriguez MD PhysicianUrolog10/28/19 Keven Castaneda MD [address] [facility] [address] [place] [address] Mrxgfshzgz63/30/22 Graeme Vazquez MD [address] [place] [address] PhysicianHematology/Oncology3 Margot So, RN [address] [place] [address] Specialty Care CoordinatorHematology/Oncology12/26/22 Patricia Conteh, GROUP PRACTICE PEDIATRICIAN.BUSINESS RECORDS MANAGER [address] [place] [address] Nurse PractitionerHematology/Oncology12/26/22Team MemberRelationshipSpecialty Start DateEnd Date Sergio Sneed MD PCP - GeneralFamily Xgnbthcr81/17/19 Jian Rodriguez MD PhysicianUrolog10/28/19 Keven Castaneda MD [address] [facility] [address] [place] [address] Eeqkrjmphu95/30/22 Graeme Vazquez MD [address] [place] [address] PhysicianHematology/Oncology12/26/22 Margot So, SUNIL [address] [place] [address] Specialty Care CoordinatorHematology/Oncology12/26/22 Patricia Conteh, GROUP PRACTICE PEDIATRICIAN.BUSINESS RECORDS MANAGER [address] [place] [address] Nurse PractitionerHematology/Oncology3/15/23Team MemberRelationshipSpecialty Start DateEnd Date Sergio Sneed MD PCP - GeneralFamily Mjwbmjyi91/17/19 Jian Rodriguez MD PhysicianUrolog10/28/19 Keven Castaneda MD [address] [facility] [address] [place] [address] Uhvsevhgyr84/30/22 Graeme Vazquez MD [address] [place] [address] PhysicianHematology/Oncology12/26/22 Margot So, SUNIL [address] [place] [address] Specialty Care CoordinatorHematology/Oncology12/26/22 Patricia Conteh APRN.BUSINESS RECORDS MANAGER [address] [place] [address] Nurse PractitionerHematology/Oncology12/26/22Te MemberRelationshipSpecialty Start DateEnd Date Marilu Roach CNP [address] [place], [place] [id number] PCP - GeneralNurse Practitioner05/18/24 Jian Rodriguez MD PhysicianUrolog10/28/19 Keven Castaneda MD [address] [facility] [address] [place] [address] Qpvypvprcw99/30/22 Graeme Vazquez MD [address] [place] [address] PhysicianHematology/Oncology3 Margot So, SUNIL [address] [place] [address] Specialty Care CoordinatorHematology/Oncology12/26/22 Patricia Conteh, GROUP PRACTICE PEDIATRICIAN.BUSINESS RECORDS MANAGER [address] [place] [address] [place] [address] Nurse PractitionerHematology/Oncology12/26/22Team MemberRelationshipSpecialty Start DateEnd Date Sergio Sneed MD PCP - GeneralFamily Swxmgyml34/17//02/04 Jian Rodriguez MD PhysicianUrolog10/28/19 Keven Castaneda MD [address] [facility] [address] [place] [address] Visadpgpzo88/30/22 Graeme Vazquez MD [address] [place] [address] PhysicianHematology/Oncology12/26/22 Margot So, RN [address] [place] [address] Specialty Care CoordinatorHematology/Oncology12/26/22 Patricia Conteh, GROUP PRACTICE PEDIATRICIAN.BUSINESS RECORDS MANAGER [address] [place] [address] [place] [address] Nurse PractitionerHematology/Oncology12/26/22Team MemberRelationshipSpecialty Start DateEnd Date Sergio Sneed MD PCP - GeneralFamily Vblvwhae24/17/ Jian Rodriguez MD PhysicianUrolog10/28/19 Keven Castaneda MD [address] [facility] [address] [place] [address] Ujtuitusqv31/30/22 Graeme Vazquez MD [address] [place] [address] [place] [address] PhysicianHematology/Oncology12/26/22 Margot So, SUNIL [address] [place] [address] [place] [address] Specialty Care CoordinatorHematology/Oncology12/26/22 Patricia Conteh APRN.BUSINESS RECORDS MANAGER [address] [place] [address] [place] [address] Nurse PractitionerHematology/Oncology12/26/22Team MemberRelationshipSpecialty Start DateEnd Date Marilu Roach CNP [address] [facility] [place] [address] PCP - GeneralNurse Practitioner05/18/24 Jian Rodriguez MD PhysicianUrolog10/28/19 Keven Castaneda MD [address] [facility] [address] [place] [address] Cyqmsxmabh88/30/22 Graeme Vazquez MD [address] [place] [place] [address] PhysicianHematology/Oncology12/26/22 Margot So, RN [address] [facility] [place] [address] Specialty Care CoordinatorHematology/Oncology12/26/22 Patricia Conteh APRN.[facility] [address] [place] [address] Nurse PractitionerHematology/Oncology12/26/22Team MemberRelationshipSpecialty Start DateEnd Date Sergio Sneed MD PCP - GeneralFamily Kunklsoc61/17/198/02/04 Jian Rodriguez MD PhysicianUrolog10/28/19 Keven Castaneda MD [address] [facility] [address] [place] [address] Xhzculvnto84/30/22 Graeme Vazquez MD [address] [facility] [place] [address] PhysicianHematology/Oncology12/26/22 Margot So, RN [address] [facility] [place] [address] Specialty Care CoordinatorHematology/Oncology12/26/22 Patricia Conteh, GROUP PRACTICE PEDIATRICIAN.BUSINESS RECORDS MANAGER [address] [place] [address] Nurse PractitionerHematology/Oncology12/26/22Team MemberRelationshipSpecialty Start DateEnd Date Sergio Sneed MD PCP - GeneralFamily Qzucxyul76/17/ Jian Rodriguez MD PhysicianUrolog10/28/19 Keven Castaneda MD [address] [facility] [address] [place] [address] Wbkbmtwrqw96/30/22 Graeme Vazquez MD [address] [place] [address] PhysicianHematology/Oncology12/26/22 Margot So, RN [address] [place] [address] Specialty Care CoordinatorHematology/Oncology12/26/22 Patricia Conteh, GROUP PRACTICE PEDIATRICIAN.BUSINESS RECORDS MANAGER [address] [place] [address] Nurse PractitionerHematology/Oncology12/26/22Team MemberRelationshipSpecialty Start DateEnd Date Marilu Roach CNP [address] [facility] [address] PCP - GeneralNurse Practitioner05/18/24 Jian Rodriguez MD PhysicianUrolog10/28/19 Keven Castaneda MD [address] [facility] [address] [place] [address] Frrtwdzcrm35/30/22 Graeme Vazquez MD [address] [place] [address] [place] [address] PhysicianHematology/Oncology12/26/22 Margot So, SUNIL [address] [place] [address] [place] [address] Specialty Care CoordinatorHematology/Oncology12/26/22 Patricia Conteh APRN.BUSINESS RECORDS MANAGER [address] [place] [address] [place] [address] Nurse PractitionerHematology/Oncology12/26/22Team MemberRelationshipSpecialty Start DateEnd Date Marilu Roach, GROUP PRACTICE PEDIATRICIAN - BUSINESS RECORDS MANAGER [address] [place] [address] PCP - GeneralFamily Nurse Practitioner04/21/24Team MemberRelationshipSpecialty Start DateEnd Date Marilu Roach, GROUP PRACTICE PEDIATRICIAN - BUSINESS RECORDS MANAGER [address] [place] [address] PCP - GeneralFamily Nurse Practitioner04/21/24Team MemberRelationshipSpecialty Start DateEnd Date Marilu Roach BUSINESS RECORDS MANAGER [address] [place] [address] PCP - GeneralNurse Practitioner05/18/24 Jian Rodriguez MD PhysicianUrolog10/28/19 Keven Castaneda MD [address] [facility] [address] [place] [address] Kothuedkfp12/30/22 Graeme Vazquez MD [address] [place] [address] [place] [address] PhysicianHematology/Oncology12/26/22 Margot So, SUNIL [address] [place] [address] [place] [address] Specialty Care CoordinatorHematology/Oncology12/26/22 Patricia Conteh APRN.BUSINESS RECORDS MANAGER [address] [place] [address] [place] [address] Nurse PractitionerHematology/Oncology12/26/22Team MemberRelationshipSpecialty Start DateEnd Date Marilu Roach, GROUP PRACTICE PEDIATRICIAN - BUSINESS RECORDS MANAGER [address] [place] [address] PCP - GeneralFamily Nurse Practitioner04/21/24Team MemberRelationshipSpecialty Start DateEnd Date Marilu Roach, GROUP PRACTICE PEDIATRICIAN - BUSINESS RECORDS MANAGER [address] [place] [address] PCP - GeneralFamily Nurse Practitioner04/21/24Team MemberRelationshipSpecialty Start DateEnd Date Marilu Roach BUSINESS RECORDS MANAGER [address] [place] [address] PCP - GeneralNurse Practitioner05/18/24 Jian Rodriguez MD PhysicianUrolog/ Keven Castaneda MD [address] [facility] [address] [place] [address] Nqolmmwaod62/30/22 Graeme Vazquez MD [address] [place] [address] [place] [address] PhysicianHematology/Oncology12/26/22 Patricia Conteh APRN.BUSINESS RECORDS MANAGER [address] [place] [address] [place] [address] Nurse PractitionerHematology/Oncology12/26/22Te MemberRelationshipSpecialty Start DateEnd Date MightMarilu, GROUP PRACTICE PEDIATRICIAN-BUSINESS RECORDS MANAGER [address] [place] [facility] [address] PCP - GeneralFamily Medicine04/20/25Team MemberRelationshipSpecialtyStart DateEnd Date MightMarilu, GROUP PRACTICE PEDIATRICIAN-BUSINESS RECORDS MANAGER [address] [place] [facility] [address] PCP - GeneralFamily Medicine04/20/25Team MemberRelationshipSpecialtyStart DateEnd Date MightMarilu, GROUP PRACTICE PEDIATRICIAN-BUSINESS RECORDS MANAGER [address] [place] [facility] [address] PCP - GeneralFamily Medicine04/20/25Team MemberRelationshipSpecialtyStart DateEnd Date Marilu Roach, GROUP PRACTICE PEDIATRICIAN-BUSINESS RECORDS MANAGER [address] [place] [facility] [address] PCP - GeneralFamily Medicine04/20/25Team MemberRelationshipSpecialtyStart DateEnd Date Might, Marilu Nelson, GROUP PRACTICE PEDIATRICIAN-BUSINESS RECORDS MANAGER [address] [facility] [facility] [place] [address] PCP - GeneralFamily Medicine04/20/25 Inactive Administered Medications - up to 3 most recent administrations Administered Medications (un recognized section and content) Medication OrderMAR ActionAction DateDoseRateSite NaCl 0.9% 500 mL INTRAVENOUS, at 500 mL/hr, Administer over 1 Hours, ONCE, 1 dose, On Sat11/29/23 at 1330 New Bag/Syringe/Qbrcmv2011/29/2023 1:42 PM NUB340 mL/hr pembrolizumab 200 mg in NaCl 0.9% 66 mL (KEYTRUDA) 200 mg, INTRAVENOUS, Administer over 30 Minutes, ONCE, 1 dose, On Sat11/29/23 at 1330, EXP: 11/29/2023 1930 RT Administer with 0.2 micron filter. New Bag/Syringe/Qjxqgr7911/29/2023 2:16 PM UUW902 mg Scheduled Active and Recently Administ ered [...] BE BASED ON THE PRIMARY CLINICAL RECORDS. [facility]. provides no warranty or guarantee of the accuracy or completeness of information in this document.
[2025-09-01 09:41] LABS: Anion Gap 7.6; Blood Urea Nitrogen 37.0 mg/dL (7.0-18.0); Calcium 8.8 mg/dL (8.5-10.1); Carbon Dioxide 31.7 mmol/L (21.0-32.0); Chloride 108 mmol/L (98-107); Estimated GFR (African America 44 (>=60 mL/min/1.73m^2); Estimated GFR (Non-African Ame 36 (>=60 mL/min/1.73m^2); Glucose 109 mg/dL (74-106); Potassium 4.3 mmol/L (3.5-5.1); Sodium 143 mmol/L (136-145)
== END 2025-09-01 09:13 | disposition home or self-care (01) ==
PROVIDERS: Visit Provider Internal Medicine Interventional Cardiology
DX: N18.32 Chronic kidney disease, stage 3b (principal); I50.22 Chronic systolic (congestive) heart failure
CPT/HCPCS: 36415; 80048

== ENCOUNTER 2025-09-16 08:11 | Outpatient (OUT) | payer MEDICARE, SELFPAY ==
--- OUTSIDE RECORDS SUMMARY | 2025-09-16 08:14 | XMS_ITS ---
Author Organization [employer] tem Address [facility] [id number] [address] [place] [address] Care Team Providers Care Marker Assembler Name Role Phone Faheem Tran CONVERTIBLE TOP INSTALLER-WINCH STRIPPER Primary Care Provider [phone] Active Problems Patient Care Coordination No te Formatting of this note migh t be different from the original. Last AWV 08/09/15 ProblemNoted DateDiagnosed DateChest wall ulcer, with fat layer exposed 05/17/2025Infection of pacemaker ozuwgl5305/17/2025Nonhealing nonsurgical wound with fat layer xuzzmoo0605/03/2025Open wound of left chest wall04/22/2025Surgical wound vvftvig7204/22/2025Pacemaker complications, initial yvaqukacb39/07/2025 Ureter ogjcbo3407/18/2018Essential ztrwxgevboou24/22/2017HLD (hyperlipidemia) 09/04/2017 Current Treatment and Therapy Plans No current plan information found. Other Current Plans Ambulatory wound care* Plan Start Date:05/17/2025 Plan Provider:AVIVA HorvathWINCH STRIPPER Linked Problems Chest wall ulcer, with fat l keri exposed Treatment Medications No medications scheduled. Past Treatment and Therapy Plans No past plan information found. Lifetime Dose Tracking * ChemicalLifetime DoseAutomatic EntryManual YpgjbOkkavlquikc785 mGy0 qWc186 mGy Fluoro Time21.3 minutes0 trubsxi18.3 minutes
--- OUTSIDE RECORDS SUMMARY | 2025-09-16 08:14 | XMS_ITS | Clinical Summary ---
Author Organization [employer] tem Address [facility] [id number] [address] [place] [address] Care Team Providers Care Director Of Financial Reporting Name Role Phone Faheem Tran CONTACT LENS EDGE BUFFER-CRATE BUILDER Primary Care Provider [phone] Allergies Active AllergyReactionsCriticalityNoted HarwZkjsbzruSudilxbtBylrEefcpe95/01/2018 Severe blisters DesonideOther (See Comments)Lipker6411/05/2023 Medications MedicationSigDispense QuantityRefillsLast FilledStart DateEnd DateStatus balsalazide [...] with fat layer exposed 05/17/2025Infection of pacemaker wgwfvq6405/17/2025Nonhealing nonsurgical wound with fat layer gsamkzy7005/03/2025Open wound of left chest wall04/22/2025Surgical wound esmeoxv8604/22/2025Pacemaker complications, initial oadbhgcah31/07/2025 Ureter tgapum2407/18/2018Essential eorspvpnvrut50/22/2017HLD (hyperlipidemia) 09/04/2017 Immunizations ImmunizationAdministration DatesNext DueInfluenza, Injectable, quadrivalent (PF) 09/03/2018(Deferred: Patient Refused) Social History Tobacco UseTypesPacks/DayYears UsedDateSmoking Tobacco: FormerCigarettes Smokeless Tobacco: Never Tobacco Cessation:Counseling Given: Not Answered Alcohol UseStandard Drinks/WeekCommentsNo0 (1 standard drink = 0.6 oz pure alcohol)[facility] UtilitiesAnswerDate RecordedIn the past 12 months has the [employer], or water [employer] threatened to shut off services in your home?No 04/20/2025PHQ-2AnswerDate RecordedTotal Eezie60811/03/2017PRAPARE - Transportation AnswerDate RecordedIn the past 12 [...] as a part of a household?No 04/20/2025hildcareAnswerDate TywvwsvzTjbpkcnjvHttatll36/12/2019EmploymentAnswer Date ZadlqpjpWlyrguwgrpKcmfqql40/12/2019Hunger ScreeningAnswerDate Recorded Within the past 12 months we worried whether our food would run out before we got money to buy more.Never True05/17/2025Within the past 12 months the food we bought just didn't last and we didn't have money to get more.Never True 05/17/2025Purpose - LifeAnswerDate RecordedPurpose and direction in lifeUnknown 11/24/2020ex and Gender InformationValueDate RecordedSex Assigned at BirthNot on fileLegal EpyPtci1205/19/2015 11:30 AM EDTGender IdentityNot on fileSexual OrientationNot on fileOccupationIndustryJob Start DateJob End DateretiredNot on fileNot on fileNot on file Last Filed Vital Signs Vital SignReadingTime TakenCommentsBlood Pghlsvfz885/8305/17/2025 8:47 AM EDT Fwdby923605/17/2025 8:47 AM TMYTudkgxljdwa66.9 ??C (98.4 ??F)05/17/2025 8:47 AM EDTRespiratory Wscx985605/17/2025 8:47 AM EDTOxygen Wfotckrklz74%05/08/2025 10:04 AM EDTInhaled Oxygen Concentration--Frrzho70.9 kg (163 lb)05/08/2025 10:04 AM HOYPuuzza983.6 cm (5' 4 )05/08/2025 10:04 AM EDTBody Mass Index27.9807 10:04 AM EDT Plan of Treatment Health MaintenanceDue DateLast DoneCommentsDepression Yktsjmzuy94/12/1951Fall Risk Lmghpgtjx33/12/2004RSV ( or age 60+ yrs) (1 - 1-dose 75+ series) 2014Zoster (Shingles) Vaccine (2 of 2)3COVID-19 Vaccine ( season)/12/2020, 11/26/2020, 11/05/2020Influenza Xoztyde58Tobacco Cqlnlbzxx53/01/2025DTaP,Tdap and Td Vaccines (2 - Tdap), 01/15/2013 Goals GoalPatient Goal TypeAssociated ProblemsRecent ProgressPatient-Stated?Author <enter goal here> Farida Young RN Note: Evaluation of progress towards goal: patient progressing toward safe discharge home. Medical Devices ImplantedTypeAreaManufacturerDevice IdentifierShelf Expiration DateModel / Serial / LotPacemaker Tin Levy 19.5f 32.2 Mm Ra Crd Strl - [id number] - [id number] Implanted:Qty: 1 on 04/21/2025 [facility]emakerLeft: ChestST SARWAT (Diag)[id number] / [id number] / Pacemaker Tin Levy 19.5f 38.0 Mm Rv Crd Strl - [id number] - [id number] Implanted:Qty: 1 on 04/21/2025 [facility]: ChestST SARWAT (Diag)[id number] / [id number] / Insurance Advance Directives * Full Code (Latest Code Status on File) Date ActivatedDate InactivatedComments04/19/2025 5:09 PM04/23/2025 4:07 PM Care Teams Team MemberRelationshipSpecialtyStart DateEnd Date Might, Faheem Nelson, CONTACT LENS EDGE BUFFER-CRATE BUILDER [address] [place] [address] PCP - GeneralFamily Medicine04/20/25
--- OUTSIDE RECORDS SUMMARY | 2025-09-16 08:15 | XMS_ITS ---
Author Organization [facility] Address [address] [place] [address] Care Team Providers Care Hospital Superintendent Name Role Phone Faheem Tran MD Primary Care Provider [phone] Active Problems ProblemNoted DateDiagnosed DateAbdominal pain07/16/2025bnormal results of cardiovascular function duphlss5207/16/2025enign prostatic tarepbqeiyk99/03/2025 Zlytgagdzhd20/03/9191Mzvznnpfymp28/03/2025Depressed left ventricular ejection anduszue98/03/2025Dry mouth07/16/20256629Wbcajybyh23/03/2025Encounter for follow-up examination after completed treatment for malignant tqdorjel12/03/2025History of primary malignant neoplasm of urinary pczmae4907/16/20258659Yuqqnzvhhivqqe10/03/2025 Iron deficiency pdjach0407/16/2025Liver disease, jyyghfnjgxj08/03/2025Presence of cardiac vrmvwyznr14/03/2025Severe protein-calorie malnutrition (Aj: less than 60% of standard weight)07/16/2025Urothelial lgjmhvlka48/03/2025Vomiting 07/16/2025hest wall ulcer, with fat layer edyasll7105/17/2025Nonhealing nonsurgical wound with fat layer phufllx5605/03/2025Open wound of left chest wall 04/22/2025Surgical wound edtwuny4204/22/2025Infection of pacemaker pocket 01/19/2025Pre-operative cardiovascular ojamadyphui34/13/2024 Assessment & Plan (06/26/2024 11:02 AM EDT): From a cardiology perspective patient may proceed with planned EGD and colonoscopy he is low to moderate risk for low risk procedure, he may hold Plavix 5 to 7 days prior to procedure, please do not hold aspirin unless absolutely necessary thank you Congenital tfiosfaoqlofso25/11/2024acemaker complications, initial encounter 02/05/2024Syncope and aevfbrmw31/02/2023 Assessment & Plan (03/15/2023 1:08 PM EDT): Reviewed with Dr Reddy and he recommended perm Pacemaker- orders sent and d/w pt and daughter= provided pt education pamphlet for Pacemaker that reviewed indications, risks vs benefits of procedure and pt voiced understanding and is agreeable with proceeding with PPM High-grade atrioventricular block03/15/2023 Overview (03/15/2023): Added automatically from request for surgery [id number] Assessment & Plan (05/05/2023 10:58 PM EDT): [...] Class I, BMI 30-34.9003/27/2022Malignant neoplasm of urinary vhrzkhc1911/10/2021KI (acute kidney injury)11/01/2021Hypertensive heart disease with heart zyyfyck4807/11/2021 Overview (03/15/2023): Last Assessment & Plan: -BP elevated in office 171/70, 170/72, patient reports he has not taken any of his medications yet today -denies cardiac symptoms -EF 55% on echo 02/2022 scanned into [facility] -on hydralazine, losartan, isosorbide dinitrate, and Jardiance -follows with cardiology, dr. Keven Castaneda, requested most recent office note Assessment & Plan (06/26/2024 11:02 AM EDT): Blood pressure well-controlled Continue all current medications including Toprol, losartan, Imdur, hydralazine Ooxfypbtjslpmv68/18/2019Ulcerative cymlucnhmt93/29/2019 Overview (03/15/2023): Last Assessment & Plan: -stable on rx Stage 3 chronic kidney fykjqhw7308/11/2019 Overview (03/15/2023): Last Assessment & Plan: -labs pending Gastro-esophageal reflux disease without sdzuiotnhay84/28/2019 Overview (03/15/2023): Last Assessment & Plan: -stable on PPI Malignant neoplasm of kidney excluding renal njtciw3407/29/2019 Overview (03/15/2023): Last Assessment & Plan: -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, present since 2019, s/p URS and laser ablation, tumor recurrence andhas been getting chemo (last dose a few months ago), now scheduled for surgery Hypertensive jufadzss84/24/2019 Assessment & Plan (03/15/2023 1:06 PM EDT): Hypertension is controlled Continue med regime Acquired absence of jhpxjq7907/18/2018Malignant neoplasm of hxrocp8307/07/2018HLD (hyperlipidemia)09/04/2017Essential cribpbuujfkf15/22/2017 Assessment & Plan (05/05/2023 10:55 PM EDT): -stable -ct meds Kimgqepshltk68/22/2017Chronic systolic heart failure Assessment & Plan (06/26/2024 11:22 AM EDT): Currently euvolemic without exacerbation Clinton heart class II Continue GDMT, aspirin, Lipitor, [...] Assessment & Plan (06/26/2024 11:21 AM EDT): YRC5TV1-FXWx= 5-age, heart failure, hypertension, CAD/vascular disease A-flutter [...] * ChemicalLifetime DoseAutomatic EntryManual EntryFluoro Time14.01 minutes0 ucqsdhv26.01 minutesAir Ayzer415.98 mGy0 hZj159.98 mGyDose Area Ehzhsis00,101 mGy-cm20 mGy-cm233,101 mGy-cm2 Resolved Problems ProblemNoted DateDiagnosed DateResolved DateSevere protein-calorie malnutrition /Mild protein-calorie gvxdnohsfuwn00NSTEMI (non-ST elevated myocardial infarction)/ngina pectoris, ehnqkgzp01/
--- OUTSIDE RECORDS SUMMARY | 2025-09-16 08:15 | XMS_ITS | Patient Health Record ---
Author Organization [facility] in [place] Address [address] [place] [address] Care Team Providers Care Design Director Name Role Phone None, Unknown or Primary Care Provider Unavailab john Monica Mickey Unavailable [phone] Allergies No Known Allergies Reason For Referral [...] Orally Q 6 hours PRN; Duration: 3 aidtJAO2111/18/2023ctiveGlucosaminew/MSM 1500mgActive Keytruda 100 MG/4MLas directed IntravenousActiveamLODIPine Besylate [...] Administration Date Status Comme nts Flu, Fluad (0042-8885) (71464) 64 yrs+, single-dose syringe IM Intramuscular 07/22/2023 [...] alcohol in the p ast year? No Zjthjd5VpylpieabfncdyMztfsuru Problems Problem Type SNOMED Code ICD Code Onset Dates Problem Status W/U Status Risk Notes Problem Syncope and collapse (602786784) Syncope and collapse (R55) ActiveconfirmedProblemHypomagnesemia (044886783)Hypomagnesemia (E83.42)Active confirmedProblemDehydration (62727226)Dehydration (E86.0)ActiveconfirmedProblem Hypotension (09480073)Other hypotension (I95.89)ActiveconfirmedProblemLiver disease (464585131)Liver disease, unspecified (K76.9)ActiveconfirmedProblem Bradycardia (39657346)Bradycardia, unspecified (R00.1)ActiveconfirmedProblem Aftercare (979576165)Encounter for follow-up examination after completed treatment for malignant neoplasm (Z08)ActiveconfirmedProblemPersonal history of primary malignant neoplasm of urinary system (524298255)Personal history of malignant neoplasm of unspecified urinary tract organ (Z85.50)Activeconfirmed ProblemCardiac pacemaker in situ (961391612)Presence of cardiac pacemaker (Z95.0)ActiveconfirmedProblemAbdominal pain (78541189)Abdominal pain (R10.9) ActiveconfirmedProblemHypothyroid (24358805)Hypothyroid (E03.9)Activeconfirmed ProblemMalignant tumor of prostate (915604278)Prostate cancer (C61)Active confirmedProblemGastritis (3113305)Gastritis (K29.70)ActiveconfirmedProblem Vomiting (326867898)Vomiting (R11.10)ActiveconfirmedProblemDry mouth (93419007) Dry mouth (R68.2)ActiveconfirmedProblemSevere protein-calorie malnutrition (Aj: less than 60% of standard weight) (939699877)Protein-calorie malnutrition, severe (E43)ActiveconfirmedProblemIron deficiency anemia (82828321)Anemia, iron deficiency (D50.9)ActiveconfirmedProblemHyperlipidaemia (75195146)Hyperlipidemia, unspecified hyperlipidemia type (E78.5)Activeconfirmed ProblemUrothelial carcinoma (95642416)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)Active confirmedProblemSevere protein calorie malnutrition (885323253)Other severe protein-calorie malnutrition (E43)ActiveconfirmedProblemPrimary hypertension (04596976)Primary hypertension (I10)ActiveconfirmedProblemBenign prostatic hypertrophy without outflow obstruction (953151581)Benign prostatic hyperplasia, unspecified whether lower urinary tract symptoms present (N40.0)Activeconfirmed ProblemIron deficiency anemia (33236908)Chronic iron deficiency anemia (D50.9) ActiveconfirmedProblemChronic kidney disease stage 3 (disorder) (811556577)Stage 3 chronic kidney disease, unspecified whether stage 3a or 3b CKD (N18.30)Active confirmedProblemAbnormal results of cardiovascular function studies (272375639) Cardiac LV ejection fraction of 40-49% (R94.30)Activeconfirmed Encounters Encounter Location Date Provider Diagnosis [id number] [place] [address] 11/30/2024 Mickey Anderosn [facility] - [address] [place] [facility] [address] 12/30/2024Mickey Anderson Plan Of Treatment Pending Test Test Name Order Date CMP (COMPLETE METABOLIC PANEL) 4 CULTURE, STOOL 01/07/2024 CBC WITH DIFF (EXP 08/2025) 01/07/2024 URIC ACID 01/07/2024 CT Abdomen and [...] End Date [place]IC[place] [address] [place] [place] [address] [id number] Baljeet Sanchez - patient is the [id number] 2005[facility] [address] [place] [id number], LeoSelf - patient is the [id number] 2022 Medical (General) History Medical History History [...] on 02/05/2024 latrogenic pneumothoraxSurgical History Surgery Date(Month/Year) Cystourethroscopy Rt retrogr felipa pyelogram- Ablation renal Tumor- Instillation Mitomycin C 07/2019 Cysto 09/2019 Back Surgery Hernia RepairRight Kidney RemovalPacemakerHospitalization History Reason Date(Month/Year) [facility]- Vomiting, Diarrhea 10/2023 Pacemakerplacement 03/18/2023
--- OUTSIDE RECORDS SUMMARY | 2025-09-16 08:15 | XMS_ITS | Encounter Summary ---
Author Organization [facility] Address [address] [place] [address] Care Team Providers Care High School Guidance Counselor Name Role Phone Jian Manriquez MD Unavailable [phone] Keven Castaneda MD Unavailable [phone] Caesar Prado MD Unavailable [phone] Patricia Conteh APRN.POWER GENERATION EQUIPMENT REPAIRER Unavailable [phone] Faheem Tran [facility] Primary Care Provider [phone] Source Comments In the event this information is protected by the Federal Confidentiality of Alcohol and Drug AbusePatient Records regulations: The Federal rules restrict any use of the information to criminally investigate or prosecute any alcohol or drug abuse patient.[facility] Encounter Details DateTypeDepartmentCare Team (Latest Contact Info)Laeqdoqdtor65/20/2025Interfaced Data Molecular Modeler Management [address] [place] [address] aDvid Ballard MD Social History Tobacco UseTypesPacks/DayYears UsedDateSmoking Tobacco: [id number] - 1971Passive Smoke Exposure: PastSmokeless Tobacco: NeverAlcohol UseStandard Drinks/WeekCommentsNo0 (1 standard drink = 0.6 oz pure alcohol)PHQ-2AnswerDate RecordedPHQ-2 ocwon86711/20/2022rea Deprivation IndexAnswerDate RecordedNational Score (1-100), lower number is lower szwr950302/19/2023State Score (1-10), lower number is lower dgmq905ata from: https://www.neighborhoodatlas.[facility]/. Last address used for [address] [place] [address] [place] [address]/19/2023Sex and Gender InformationValueDate RecordedSex Assigned at BxvetXxzv02/16/2019 6:33 PM ESTLegal XjzUmzt5907/11/2018 8:15 AM EDTGender PcoezohnRpeu15/16/2019 6:33 PM ESTSexual OrientationStraight 09/28/2019 6:33 PM ESTdocumented as of this encounter Functional Status * Are you deaf or do you have serious difficulty hearing?AnswerDate of ApjfnuxnoeVijnpaKp67/05/2023 10:06 AM Pat Cabrera RN * Are you blind or do you have serious difficulty seeing, even when wearing glasses?AnswerDate of LaggackizpFurnfcLv78/05/2023 10:06 AM Pat Cabrera RN * Do you have serious difficulty walking or climbing stairs?AnswerDate of VciyffzxczLeyyxlVx39/05/2023 10:06 AM Pat Cabrera RN * Do you have difficulty dressing or bathing?AnswerDate of AssessmentAuthorNo 11/18/2022 10:06 AM Pat Cabrera RN * Because of a physical, mental, or emotional condition, do you have difficulty doing errands alone such as visiting a doctor's office or shopping?AnswerDate of AirfkpgrgfDwuumkQm54/05/2023 10:06 AM Pat Cabrera RN documented as of this encounter Mental Status * Because of a physical, mental, or emotional condition, do you have serious difficulty concentrating, remembering, or making decisions?AnswerEntry Date CcoyjkXp74/05/2023 10:06 AM Pat Cabrera RN documented in this encounter Plan of Treatment Not on file documented as of this encounter Visit Diagnoses Not on filedocumented in this encounter Care Teams Team MemberRelationshipSpecialtyStart DateEnd Date Chelsea, Faheem Nelson POWER GENERATION EQUIPMENT REPAIRER [address] [facility] [place] [address] PCP - GeneralNurse Practitioner05/18/24 Jian Manriquez MD PhysicianUrolog10/28/19 Keven Castaneda MD [address] [facility] [address] [place] [address] Czxwaibwnb46/30/22 Caesar Prado MD [address] [place] [address] PhysicianHematology/Oncology12/26/22 Patricia Conteh APRN.CNP [address] [place] [address] Nurse PractitionerHematology/Oncology12/26/22documented as of this encounter
--- OUTSIDE RECORDS SUMMARY | 2025-09-16 08:15 | XMS_ITS | Encounter Summary ---
Author Organization [facility] Address [address] [place] [address] Care Team Providers Care Founder And Ceo Name Role Phone Jian Manriquez MD Unavailable [phone] Keven Castaneda MD Unavailable [phone] Caesar Prado MD Unavailable [phone] Patricia Conteh APRN.MATERIAL DISTRIBUTOR Unavailable [phone] Faheem Tran [facility] Primary Care Provider [phone] Source Comments In the event this information is protected by the Federal Confidentiality of Alcohol and Drug AbusePatient Records regulations: The Federal rules restrict any use of the information to criminally investigate or prosecute any alcohol or drug abuse patient.[facility] Encounter Details DateTypeDepartmentCare Team (Latest Contact Info)Ocrjglexyrd65/02/2025Interfaced Data Coining Press Operator Management [address] [place] [address] David Ballard MD Social History Tobacco UseTypesPacks/DayYears UsedDateSmoking Tobacco: RtsbxeSzwhpwxiqz6650788 - 1971Passive Smoke Exposure: PastSmokeless Tobacco: NeverAlcohol UseStandard Drinks/WeekCommentsNo0 (1 standard drink = 0.6 oz pure alcohol)PHQ-2AnswerDate RecordedPHQ-2 ffwza93311/20/2022rea Deprivation IndexAnswerDate RecordedNational Score (1-100), lower number is lower vcjr379202/19/2023State Score (1-10), lower number is lower xscz892ata from: https://www.neighborhoodatlas.[facility]/. Last address used for [address] [place] [place] [address]/19/2023Sex and Gender InformationValueDate RecordedSex Assigned at MipnwIyff66/16/2019 6:33 PM ESTLegal OodBcvi9307/11/2018 8:15 AM EDTGender OsvgghmpFzop09/16/2019 6:33 PM ESTSexual OrientationStraight 09/28/2019 6:33 PM ESTdocumented as of this encounter Functional Status * Are you deaf or do you have serious difficulty hearing?AnswerDate of ZvtvimrjdbByhljgYc42/05/2023 10:06 AM Pat Cabrera RN * Are you blind or do you have serious difficulty seeing, even when wearing glasses?AnswerDate of NatrhxoeleGcdtqlDi93/05/2023 10:06 AM Pat Cabrera RN * Do you have serious difficulty walking or climbing stairs?AnswerDate of LufrplriktHinhpnOy81/05/2023 10:06 AM Pat Cabrera RN * Do you have difficulty dressing or bathing?AnswerDate of AssessmentAuthorNo 11/18/2022 10:06 AM Pat Cabrera RN * Because of a physical, mental, or emotional condition, do you have difficulty doing errands alone such as visiting a doctor's office or shopping?AnswerDate of JzxotjbslwQbhytbRl29/05/2023 10:06 AM Pat Cabrera RN documented as of this encounter Mental Status * Because of a physical, mental, or emotional condition, do you have serious difficulty concentrating, remembering, or making decisions?AnswerEntry Date McqjtqEw71/05/2023 10:06 AM Pat Cabrera RN documented in this encounter Plan of Treatment Not on file documented as of this encounter Visit Diagnoses Not on filedocumented in this encounter Care Teams Team MemberRelationshipSpecialtyStart DateEnd Date Chelsea, Faheem Nelson MATERIAL DISTRIBUTOR [address] [facility] [place] [address] PCP - GeneralNurse Practitioner05/18/24 Jian Manriquez MD PhysicianUrolog10/28/19 Keven Castaneda MD [address] [facility] [address] [place] [address] Wsagbbdixr20/30/22 Caesar Prado MD [address] [place] [address] PhysicianHematology/Oncology12/26/22 Patricia Conteh APRN.CNP [address] [facility] [address] [place] [address] Nurse PractitionerHematology/Oncology12/26/22documented as of this encounter
--- OUTSIDE RECORDS SUMMARY | 2025-09-16 08:16 | XMS_ITS | Clinical Summary ---
Author Organization [facility] Address [address] [place] [address] Care Team Providers Care Golf Course Mechanic Name Role Phone Jian Manriquez MD Unavailable [phone] Keven Castaneda MD Unavailable Caesar Prado MD Unavailable [phone] Patricia Conteh APRN.[facility] Unavailable [phone] Faheem Tran [facility] Primary Care Provider [phone] Allergies Active AllergyReactionsCriticalityNoted DateCommentsDesonideUnknownMedium 4Adhesive Tape (Rosins)Other: See NzarmhwuXspplt13/01/2018 Severe blisters Medications MedicationSigDispense QuantityRefillsLast FilledStart DateEnd DateStatus atorvastatin (LIPITOR) 80 mg tablet Take 80 mg by mouth once daily.06/13/2018Active Glucosamine-Chondroitin 500-400 mg tablet Take 1 tablet by mouth once daily. Active folic acid/multivit-min/lutein (CENTRUM SILVER ORAL) Take 1 tablet by mouth once daily. Active aspirin, enteric coated (ASPIRIN, ENTERIC COATED) 81 mg EC tablet Take 81 mg by mouth once daily.Active furosemide (LASIX) 40 mg tablet Take 40 mg by mouth as needed.Active hydrALAZINE (APRESOLINE) 25 mg tablet Take 25 mg by mouth three times a day.2Active amLODIPine (NORVASC) 10 mg tablet Take 10 mg by mouth once daily.Active potassium chloride (K-TAB) 10 mEq tablet Take 10 mEq by mouth twice daily.Active metoprolol succinate ER (TOPROL XL) 25 mg 24 hr tablet Take 25 mg by mouth once daily.Active losartan (COZAAR) 50 mg tablet Take 50 mg by mouth two times a day.07/13/2019Active ferrous sulfate 325 mg (65 mg iron) tablet Take 325 mg by mouth every other day.Active pembrolizumab (KEYTRUDA) 25 mg/mL injection Inject intravenously.Active tamsulosin (FLOMAX) 0.4 mg Take 1 capsule by mouth once daily. 30 capsule 5005/31/2023ctive levothyroxine (SYNTHROID) 25 mcg tablet 1 tablet in the morning on an empty stomach Orally Once a day for 30 days 06/12/2023ctive pantoprazole DR (PROTONIX) 40 mg tablet 08/15/2023ctive isosorbide dinitrate (ISORDIL) 20 mg tablet Take 20 mg by mouth three times a day.08/15/2023ctive ondansetron orally disintegrating (ZOFRAN ODT) 4 mg disintegrating tablet 11/18/2023ctive predniSONE (DELTASONE) 20 mg tablet Take 1 tablet by mouth once daily. Prednisone 20 mg for 5 days then 10 mg daily. 60 tablet 03/30/2024ctive clopidogrel (PLAVIX) 75 mg tablet Take 75 mg by mouth once daily.Active isosorbide mononitrate ER (IMDUR) 30 mg 24 hr tablet Take 30 mg by mouth once daily.Active lactobacillus acidophilus 100 mg (1 billion cell) cap(s) Take by mouth.Active cranberry fruit (CRANBERRY) 450 mg tab Take 1 capsule by mouth every morning.Active omeprazole (PRILOSEC) 20 mg capsule Take 1 capsule by mouth once daily.Active magnesium oxide 400 mg magnesium tab Take 400 mg by mouth.Active hyoscyamine (LEVSIN) 0.125 mg tablet Take 125 mcg by mouth.Active iv contrast (will be provided with radiology test) Indications:Malignant neoplasm of overlapping sites of bladder (HCC),Malignant neoplasm of urinary bladder, unspecified site (HCC),CKD (chronic kidney disease), stage V (HCC)CT Chest ABD/PEL-Inject, intravenously, once for 1 dose.No [...] CT contrast administration guidelines link. 1 Each 5Active enteric contrast (will be provided with radiology test) Indications:Malignant neoplasm of overlapping sites of bladder (HCC),Malignant neoplasm of urinary bladder, unspecified site (HCC),CKD (chronic kidney disease), stage V (HCC)For CT CHESTABD/PEL W IVCON Routine order Administer, As Directed One Time Only, via Oral, Rectal, both Oral and Rectal, Enteric Tube, Stoma or Indwelling Catheter, Enteric Contrast as designated perenteric contrast guidelines 1 Each 5Active Active Problems ProblemNoted DateDiagnosed DateCKD (chronic kidney disease), stage V011/29/2023 Gross ijbbfeatm75/01/2023Obesity, Class I, BMI 30-34.9003/27/2022Malignant neoplasm of urinary qojllnq0411/10/2021KI (acute kidney injury)11/01/2021 Hypertensive heart disease with heart eexhfsi4607/11/2021 Assessment & Plan (09/12/2022 11:40 AM EST): -BP elevated in office 171/70, 170/72, patient reports he has not taken any of his medications yet today -denies cardiac symptoms -EF 55% on echo 02/2022 scanned into [facility] -on hydralazine, losartan, isosorbide dinitrate, and Jardiance -follows with cardiology, dr. Keven Castaneda, requested most recent office note Sbwusqbnhgdlmp85/18/2019Ulcerative ijrtwztygg34/29/2019 Assessment & Plan (09/12/2022 11:40 AM EST): -stable on rx Stage 3 chronic kidney zxacpui8808/11/2019 Assessment & Plan (09/12/2022 11:40 AM EST): -labs pending Gastro-esophageal reflux disease without yodquilycny05/28/2019 Assessment & Plan (09/12/2022 11:40 AM EST): -stable on PPI Malignant neoplasm of kidney excluding renal aretiq9907/29/2019 Assessment & Plan (09/12/2022 11:41 AM EST): -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, present since 2019, s/p URS and laser ablation, tumor recurrence andhas been getting chemo (last dose a few months ago), now scheduled for surgery Acquired absence of wvukzf3707/18/2018Malignant neoplasm of woctzx4907/07/2018 Xslwfdngrjpx46/22/2017 Encounters DateTypeDepartmentCare FvmlUakvmnlbawg36/02/2025Interfaced Data Director Of Market Analysis Management [address] [place] [address] David Ballard MD 09/02/2025Interfaced Data Director Of Market Analysis Management [address] [place] [address] David Ballard MD from Last 3 Months Immunizations ImmunizationAdministration DatesNext DueCOVID-19 original vaccine, age 12+ yr, monovalent ([employer] - PURPLE TOP)09/15/2021,11/26/2020,11/26/2020, 11/05/2020,11/05/2020TD Adult01/15/2013diphtheria tetanus pertussis (DTP) wvrmgwd7002/26/2022influenza (IIV4) vaccine, quadrivalent, PF, intradermal (FLUZONE INTRADERMAL)08/09/2015influenza (LAIV) vaccine, nasal, unspecified wuhaekqodyu69/27/2015pneumococcal conjugate (PCV13) vaccine, 13 valent (PREVNAR 13)01/07/2015pneumococcal polysaccharide (PPV23) vaccine, 23 valent (PNEUMOVAX 23)02/13/2013tetanus diphtheria (Td) vaccine, age 7+ yr, 5 Lf tetanus, PF (TENIVAC)01/15/2013zoster (RZV) vaccine, recombinant (SHINGRIX)08/12/2023 Family History Medical HistoryRelationCommentsAsthmaMotherhtnMotherAsthmaSisterAnesthesia ProblemsNo Family HistoryRelationStatusCommentsMotherSister Social History Tobacco UseTypesPacks/DayYears UsedDateSmoking Tobacco: NwjnxbEhulvlzdbc4731169 - 1971Passive Smoke Exposure: PastSmokeless Tobacco: Never Tobacco Cessation:Counseling Given: Not Answered Alcohol UseStandard Drinks/WeekCommentsNo0 (1 standard drink = 0.6 oz pure alcohol)PHQ-2AnswerDate RecordedPHQ-2 vglhg92711/20/2022rea Deprivation Index AnswerDate RecordedNational Score (1-100), lower number is lower risk79 02/19/2023State Score (1-10), lower number is lower popr592ata from: https://www.neighborhoodatlas.[facility]/. Last address used for [address] [place] [address]/19/2023Sex and Gender InformationValueDate RecordedSex Assigned at FxymbExea94/16/2019 6:33 PM ESTLegal MjxFtrg1507/11/2018 8:15 AM EDTGender CxvjembiRcrt63/16/2019 6:33 PM ESTSexual OrientationStraight 09/28/2019 6:33 PM EST Last Filed Vital Signs Vital SignReadingTime TakenCommentsBlood Dgfrmjgj907/76010/23/2024 9:01 AM EST Nortu531610/23/2024 9:01 AM HHSAvgelsenhyb42.5 ??C (97.7 ??F)10/23/2024 9:01 AM ESTRespiratory Xclw655610/23/2024 9:01 AM ESTOxygen Nirodddilc90%10/23/2024 9:01 AM ESTInhaled Oxygen Concentration--Ckrrdh83.7 kg (169 lb 1.5 oz)10/23/2024 9:01 AM FBPXtrjyx013 cm (5' 3.78 )08/21/2024 9:22 AM ESTBody Mass Index29.23 08/21/2024 9:22 AM EST Plan of Treatment Health MaintenanceDue DateLast DoneCommentsAnxiety Aejqsnodk81/12/1957Depression Ohrwoizqy52/12/1957Medicare Annual Wellness Visit04/13/2005RSV Vaccine (1 - 1- dose 75+ series)2014Shingrix Vaccine (2 of 2)/dvance Directive Soxymdotwq10/01/2025ovid-19 Vaccine (6 - 2025-26 season)2025 09/15/2021, 11/26/2020, 11/26/2020, Additional history existsInfluenza Vaccine (#1)51, 08/09/2015Diabetes Wopafotjl39/07/2025, 04/21/2025, 04/20/2025, Additional history existsDTaP,Tdap,Td Vaccine (2 - Tdap) /, 01/15/2013, 01/15/2013Pneumococcal Vaccine: 50+Completed 01/07/2015, 02/13/2013 Medical Devices ImplantedTypeAreaManufacturerDevice IdentifierShelf Expiration DateModel / Serial / Danika [place] Ureteral Stent Kit 7f X 26cm Implanted:Qty: 1 [facility]29/[facility]ImplantRight: UreterCRANBERRY LAKE MEDICAL [id number]/10/[id number] / / [id number] Inlay [place] 7fr Taper [place] Green Polymer Phreecoat 24cm Ureteral - [id number] Implanted:08/12/2019 at [facility] (Quantity not on file)Urologic Stents Right: UreterCRANBERRY LAKE MEDICAL [id number]/12/[id number] / / [id number] Inlay [place] 7fr Taper [place] Green Polymer Phreecoat 26cm Ureteral - [id number] Implanted:09/30/2019 at [facility] (Quantity not on file)Urologic Stents Right: UreterCRANBERRY LAKE MEDICAL OGPRGJJL19/12/[id number] / / [id number] Nicore Inlay [place] 7fr Taper [place] Green Nitinol Polymer 24cm - [id number] Implanted:Qty: 1 on 10/26/2021 [facility] HospitalUrologic StentsRight: Ureter [employer] [place] [id number]/26/[id number] / / [id number] Inlay [place] 6fr Taper [place] Green Polymer Phreecoat 24cm Ureteral - [id number] Implanted:Qty: 1 on 11/12/2022 [facility] HospitalUrologic StentsRight: Ureter [employer] [place] PRPXSRJP42/01/[id number] / / [id number] Procedures Procedure NamePriorityDate/TimeAssociated DiagnosisCommentsCOMPREHENSIVE METABOLIC EYEVFTzznucc72/03/2025 7:16 AM EST Malignant neoplasm of overlapping sites of bladder (HCC) from Last 3 Months or Most Recently Relevant to Health Maintenance Results * (ABNORMAL) COMPREHENSIVE METABOLIC PANEL (10/16/2024 7:16 AM EST)Component ValueRef RangeTest MethodAnalysis TimePerformed AtPathologist Signature Protein, Total6.46.3 - 8.0 g/dL10/16/2024 7:48 AM ESTNORTHCTRIN[facility] LABAlbumin4.33.9 - 4.9 g/dL10/16/2024 7:48 AM [facility] LABCalcium, Total9.28.5 - 10.2 mg/dL10/16/2024 7:48 AM [facility] LABBilirubin, Total0.90.2 - 1.3 mg/dL 10/16/2024 7:48 AM [facility] LABAlkaline Inchckmnzdi6417 - 113 U/L10/16/2024 7:48 AM [facility] BMNNPU0692 - 40 U/L10/16/2024 7:48 AM [facility] JHTKDY8347 - 54 U/L10/16/2024 7:[address] [facility] LZUGounsiu668(H)74 - 99 mg/dL10/16/2024 7:48 AM [facility] LABComment: The Indian Diabetes Association (ADA) provides guidance for cutoff [...] Standards of Medical Care in Diabetes 2016, Indian Diabetes Association. Diabetes Care. 2016.39(Suppl 1). BUN32(H)9 - 24 mg/dL10/16/2024 7:[address] [facility] LAB Creatinine1.71(H)0.73 - 1.22 mg/dL10/16/2024 7:[address] [facility] QQWYjunbq637418 - 144 mmol/L10/16/2024 7:[address] [facility] LABPotassium4.23.7 - 5.1 mmol/L10/16/2024 7:48 AM EST [facility] UMEZrlkchoe08779 - 107 mmol/L10/16/2024 7:[address] [facility] XYCDV07649 - 30 mmol/L10/16/2024 7:[address] [facility] LABAnion Eit784 - 15 mmol/L10/16/2024 7:[address] [facility] LABEstimated Glomerular Filtration Rate 39(L)>=60 mL/min/1.73m 10/16/2024 7:[address] [facility] LABComment:Estimated Glomerular Filtration Rate (eGFR) is calculated using the 2020 CKD-EPI creatinine equation. This equation utilizes serum creatinine, sex, and age as parameters. The creatinine assay has traceable calibration to isotope dilution- mass spectrometry. Refer to KDIGO guidelines for clinical interpretation. In patients with unstable renal function, e.g. those with acute kidney injury, the eGFRmay not accurately reflect actual GFR.Specimen (Source)Anatomical Location / LateralityCollection Method / VolumeCollection TimeReceived TimeBloodBLOOD SPECIMEN / UnknownVenipuncture / Bvfcbnv1510/16/2024 7:16 AM EST10/16/2024 7:25 AM EST Narrative Authorizing ProviderResult TypeResult StatusCaesar Prado MDLABORATORYFinal ResultPerforming OrganizationAddressCity/State/ZIP CodePhone Number [facility] [address] [place] [address] from Last 3 Months or Most Recently Relevant to Health Maintenance Insurance Advance Directives TypeDate 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 RepresentativeExplanationAdvance Directive(s)08/11/2019 11:21 AM Care Teams Team MemberRelationshipSpecialtyStart DateEnd Date Might, Faheem Nelson CNP [address] [place] [address] PCP - GeneralNurse Practitioner05/18/24 Jian Manriquez MD PhysicianUrolog10/28/19 Keven Castaneda MD [address] [facility] [address] [place] [id number] Wzkameatld59/30/22 Caesar Prado MD [address] [place] [address] PhysicianHematology/Oncology12/26/22 Patricia Conteh APRN.[facility] [address] [place] [address] Nurse PractitionerHematology/Oncology12/26/22
--- OUTSIDE RECORDS SUMMARY | 2025-09-16 08:16 | XMS_ITS | Clinical Summary ---
Author Organization [facility] Address [address] [place] [address] Care Team Providers Care Credit And Collection Manager Name Role Phone Faheem Tran MD Primary Care Provider [phone] Allergies Active AllergyReactionsCriticalityNoted DateCommentsAdhesiveRash,OtherMedium 07/14/2018 Other reaction(s): Severe Blisters EgprembxSolnuomSkw04/23/2024 Medications MedicationSigDispense QuantityRefillsLast FilledStart DateEnd DateStatus omeprazole [...] mouth in the morning.Active glucosamine/chondroitin weber A/C (LUBVUGDRZQK-MJJRXPHYLVS-LJU C ORAL) Take 1 capsule by mouth [...] mouth three times daily. 270 tablet 310ctive Active Problems ProblemNoted DateDiagnosed DateAbdominal pain07/16/2025bnormal results of cardiovascular function gmnvxdd4707/16/2025enign prostatic /03/2025 Cmygindfvaw41/03/5187Xxihnovwrfl68/03/2025Depressed left ventricular ejection /03/2025Dry mouth07/16/20259387Kqtmlyllc54/03/2025Encounter for follow-up examination after completed treatment for malignant rqnairhi20/03/2025History of primary malignant neoplasm of urinary bkugfo4907/16/20257354Qzuazpkxkqicqu29/03/2025 Iron deficiency xgecpe8707/16/2025Liver disease, /03/2025Presence of cardiac nhjqnuyki95/03/2025Severe protein-calorie malnutrition (Aj: less than 60% of standard weight)07/16/2025Urothelial snjsoufzo68/03/2025Vomiting 07/16/2025hest wall ulcer, with fat layer aykfqcs8305/17/2025Nonhealing nonsurgical wound with fat layer sakufbf8605/03/2025Open wound of left chest wall 04/22/2025Surgical wound ctwmrek0704/22/2025Infection of pacemaker pocket 01/19/2025Pre-operative cardiovascular yrubutzzlni85/13/2024 Assessment & Plan (06/26/2024 11:02 AM EDT): From a cardiology perspective patient may proceed with planned EGD and colonoscopy he is low to moderate risk for low risk procedure, he may hold Plavix 5 to 7 days prior to procedure, please do not hold aspirin unless absolutely necessary thank you Congenital wxryhrmtnoaftt83/11/2024acemaker complications, initial encounter 02/05/2024Syncope and cmosmjff17/02/2023 Assessment & Plan (03/15/2023 1:08 PM EDT): Reviewed with Dr Reddy and he recommended perm Pacemaker- orders sent and d/w pt and daughter= provided pt education pamphlet for Pacemaker that reviewed indications, risks vs benefits of procedure and pt voiced understanding and is agreeable with proceeding with PPM High-grade atrioventricular block03/15/2023 Overview (03/15/2023): Added automatically from request for surgery [id number] Assessment & Plan (05/05/2023 10:58 PM EDT): [...] light of syncope CKD (chronic kidney disease)12/03/2022ross psobwvsnz37/01/2023Obesity, Class I, BMI 30-34.9003/27/2022Malignant neoplasm of urinary bpxbgqe6911/10/2021KI (acute kidney injury)11/01/2021Hypertensive heart disease with heart lhfimyi0507/11/2021 Overview (03/15/2023): Last Assessment & Plan: -BP elevated in office 171/70, 170/72, patient reports he has not taken any of his medications yet today -denies cardiac symptoms -EF 55% on echo 02/2022 scanned into [facility] -on hydralazine, losartan, isosorbide dinitrate, and Jardiance -follows with cardiology, dr. Keven Castaneda, requested most recent office note Assessment & Plan (06/26/2024 11:02 AM EDT): Blood pressure well-controlled Continue all current medications including Toprol, losartan, Imdur, hydralazine Pxdqobcasezfgx74/18/2019Ulcerative aorgymwrqx04/29/2019 Overview (03/15/2023): Last Assessment & Plan: -stable on rx Stage 3 chronic kidney wzgqitc8708/11/2019 Overview (03/15/2023): Last Assessment & Plan: -labs pending Gastro-esophageal reflux disease without rnhhdlyrban33/28/2019 Overview (03/15/2023): Last Assessment & Plan: -stable on PPI Malignant neoplasm of kidney excluding renal kcpqnl3507/29/2019 Overview (03/15/2023): Last Assessment & Plan: -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, present since 2019, s/p URS and laser ablation, tumor recurrence andhas been getting chemo (last dose a few months ago), now scheduled for surgery Hypertensive /24/2019 Assessment & Plan (03/15/2023 1:06 PM EDT): Hypertension is controlled Continue med regime Acquired absence of runjxk9407/18/2018Malignant neoplasm of pyhhvq6807/07/2018HLD (hyperlipidemia)09/04/2017Essential yppbikocoqbs06/22/2017 Assessment & Plan (05/05/2023 10:55 PM EDT): -stable -ct meds Yieqoimjhhzc24/22/2017Chronic systolic heart failure Assessment & Plan (06/26/2024 11:22 AM EDT): Currently euvolemic without exacerbation [place] heart class II Continue GDMT, aspirin, Lipitor, [...] Assessment & Plan (06/26/2024 11:21 AM EDT): MKY7SD9-FTWl= 5-age, heart failure, hypertension, CAD/vascular disease A-flutter [...] DateDiagnosed DateResolved DateSevere protein-calorie malnutrition Mild protein-calorie fcdiavkyozmm14NSTEMI (non-ST elevated myocardial infarction)ngina pectoris, sswxzown07 Encounters DateTypeDepartmentCare BvmgRiwochmzjap27/06/2025 9:15 AM EDTOffice Visit [facility] [place] [address] [place] [address] Keven Castaneda MD Chronic systolic heart failure (CMS/HCC) (Primary Dx); Coronary artery disease involving [place] coronary artery of [place] heart without angina pectoris; Primary hypertension; Complete heart block (CMS/HCC); Cardiac pacemaker in situ; Stage 3b chronic kidney disease (CMS/HCC)07/06/2025Orders Only [facility] [address] [place] [address] Provider, MD Olayinka 06/30/2025 10:45 AM EDTAncillary Procedure [facility] [address] [place] [address] Encounter for implantable defibrillator reprogramming or checkfrom Last 3 Months Immunizations ImmunizationAdministration DatesNext ViaZXK5202/26/2022Influenza, intradermal, quadrivalent, preservative free08/09/2015Pneumococcal Conjugate PCV 13001/07/2015 Pneumococcal Polysaccharide TUE113802/13/2013Td (adult), 5 Lf tetanus toxoid, preservative free, dvgmuklp91/04/2013Zoster, Inhjnauecrm60/30/2023 Family History Medical HistoryRelationNameCommentsLung cancerFatherHeart failureMotherRelation NameStatusCommentsFatherDeceasedMotherDeceased Social History Tobacco UseTypesPacks/DayYears UsedDateSmoking Tobacco: FormerCigarettesQuit: 1980Smokeless Tobacco: Never Tobacco Cessation:Counseling Given: Not Answered Alcohol UseStandard Drinks/WeekCommentsNot Currently0 (1 standard drink = 0.6 oz pure alcohol)[facility] UtilitiesAnswerDate RecordedIn the past 12 months has the [employer], [employer], or water [place] threatened to shut off services in your home?No03/23/2024Humiliation, Afraid, Rape, and Kick questionnaireAnswerDate RecordedWithin the last year, have you been afraid of your partner or ex-partner?No06/11/2024Within the last year, have you been humiliated or emotionally abused in other ways by your partner or ex-partner?No06/11/2024 Within the last year, have you been kicked, hit, slapped, or otherwise physically hurt by your partner or ex-partner?No06/11/2024Within the last year, have you been raped or forced to have any kind of sexual activity by your part ner or ex-partner?No06/11/2024Overall Financial Resource Strain (CARDIA)Answer Date RecordedHow hard is it for you to pay for the very basics like food, housing, medical care, and heating?Not very hard03/23/2024HQ-2AnswerDate 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 Health Questionnaire-2 Rvnmn230UT Safety & Environment AnswerDate RecordedWithin the last year, have you been afraid of your partner or ex-partner?No03/23/2024Emotionally AbusedNot on file03/23/2024hysically Abused Not on file03/23/2024Sexually AbusedNot on file03/23/2024In the past year have you been physically or sexually abused?Unrecognized value03/23/2024 TransportationAnswerDate RecordedIn the past 12 months, has lack of transportation kept you from medical appointments or from getting medications?No 03/23/2024Lack of Transportation (Non-Medical)Not on file03/23/2024Housing Stability Vital SignAnswerDate RecordedUnable to Pay for Housing in the Last YearNot on file03/23/2024Number of Places Lived in the Last YearNot on file 03/23/2024In the last 12 months, was there a time when you did not have a steady place to sleep or slept in ashelter (including now)?No03/23/2024Hunger Vital SignAnswerDate RecordedWithin the past 12 months, you worried that your food would run out before you got the money to buymore.Never true03/23/2024an Out of Food in the Last YearNot on file03/23/2024Sex and Gender InformationValueDate RecordedSex Assigned at BvqknYjvg70/24/2024 10:53 AM EDTLegal NyqPjzq0504/12/2022 12:06 AM EDTGender OodqlxpzMtko50/24/2024 10:53 AM EDTSexual Orientation Heterosexual or Zeyiqsnk13/24/2024 10:53 AM EDT Last Filed Vital Signs Vital SignReadingTime TakenCommentsBlood Noaelhim413/7210 9:05 AM EDT Eufch8461 9:05 AM IRHQtexedrersg77.2 ??C (97.2 ??F)04/19/2025 10:00 AM EDTRespiratory Gaou2161 3:11 PM EDTOxygen Mpudnmjnxf45%07/19/2025 9:05 AM EDTInhaled Oxygen Concentration--Ezjkzn97.2 kg (168 lb)07/19/2025 9:05 AM EDT Xkfcsg853.6 cm (5' 4 )07/19/2025 9:05 AM EDTBody Mass Index28.8407/19/2025 9:05 AM EDT Plan of Treatment DateTypeDepartmentCare Team (Latest Contact Info)Jisrpnznneq98/05/2025 10:00 AM ESTOffice Visit [place] [address] [place] [address] Keven Castaneda MD [address] [facility] [place] [id number] 09/28/2025 9:00 AM ESTAncillary Procedure [facility] [address] [place] [address] Health MaintenanceDue DateLast DoneCommentsMedicare Annual Wellness (AWV) 1939Depression Lgbddvscy93/12/1951dult Jellirw19/01/2013Zoster Vaccines (2 of 2)/OVID-19 Vaccine ( season) , 11/26/2020, 11/05/2020Influenza Vaccine (#1)2025 07/22/2023, 08/09/2015Fall Risk Cgtpasuen29Pneumococcal Vaccine: 50+ BqyjgGvrafxdgc85/27/2015, 02/13/2013HIB VaccinesAged OutNo longer eligible based on [...] 03/18/2023 by Jimbo Reddy MD at [facility] Oowcqkavpt53/18/[id number] / [id number] / Ingevity+ Is-1 Bi Positive Fix Ra/Rv 59cm Implanted:Qty: 1 on 03/18/2023 by Jimbo Reddy MD at [facility] Sbopllyhod28/25/[id number] / [id number] / Ingevity+ Is-1 Bi Positive Fix Ra/Rv 59cm Implanted:Qty: 1 on 02/05/2024 by Jimbo Reddy MD at [facility] Gmkqizbqos01/07/[id number] / [id number] / Pacer,Accolade,Mri Dr Chris Stubbs [id number] - [id number] Implanted:Qty: 1 on 03/18/2023 by Jimbo Reddy MD at [facility] [id number] / [id number] / Procedures Procedure NamePriorityDate/TimeAssociated DiagnosisCommentsCOMPLETE TRANSTHORACIC ECHO (TTE) W/WO IMAGING AGENT, STRAIN, 3D, BUBBLE STUDYRoutine 07/06/2025 2:58 PM EDTCARDIAC DEVICE CHECK - IN CLINIC - LEADLESS PACER W/ PROG Zvfwkxn1507/01/2025 9:35 AM EDT Encounter for implantable defibrillator reprogramming or check from Last 3 Months Results * Complete Echo (TTE) w/wo Imaging Agent, Strain, 3D, Bubble Study (07/06/2025 2:58 PM EDT)Anatomical RegionLateralityModalityUltrasound Narrative Authorizing ProviderResult TypeResult StatusHistorical Provider [facility] ECHO PROCEDURESFinal Result * CARDIAC DEVICE CHECK [...] attached note Authorizing ProviderResult TypeResult StatusPalolis Reddy [facility] IMPLANTABLE CARDIAC DEVICE PROCEDURESFinal Result from Last 3 Months Insurance Advance Directives * Full Code (Latest Code Status on File) Date ActivatedDate [facility]03/25/2024 3:20 PM03/26/2024 4:45 PM * DNR CC-A [...] DateEnd Date Faheem Tran MD [address] [place] [address] PCP - GeneralNurse Practitioner04/09/24
--- OUTSIDE RECORDS SUMMARY | 2025-09-16 08:16 | XMS_ITS ---
Author Organization [facility] Address [address] [place], [place] [address] Care Team Providers Care Aquatics Instructor Name Role Phone Jian Manriquez MD Unavailable [phone] Keven Castaneda MD Unavailable Caesar Prado MD Unavailable [phone] Patricia Conteh QUALITY OFFICER.FROG CATCHER Unavailable [phone] Faheem Tran FROG CATCHER Primary Care Provider [phone] Active Problems ProblemNoted DateDiagnosed DateCKD (chronic kidney disease), stage V011/29/2023 Gross enokyvbme15/01/2023Obesity, Class I, BMI 30-34.9003/27/2022Malignant neoplasm of urinary iqszwrt5511/10/2021KI (acute kidney injury)11/01/2021 Hypertensive heart disease with heart yagyeah8907/11/2021 Assessment & Plan (09/12/2022 11:40 AM EST): -BP elevated in office 171/70, 170/72, patient reports he has not taken any of his medications yet today -denies cardiac symptoms -EF 55% on echo 02/2022 scanned into [facility] -on hydralazine, losartan, isosorbide dinitrate, and Jardiance -follows with cardiology, dr. Keven Castaneda, requested most recent office note Mxgnxqeegxcisb25/18/2019Ulcerative eqmkqlagbf15/29/2019 Assessment & Plan (09/12/2022 11:40 AM EST): -stable on rx Stage 3 chronic kidney wvtkbms9608/11/2019 Assessment & Plan (09/12/2022 11:40 AM EST): -labs pending Gastro-esophageal reflux disease without iraodckpxrv92/28/2019 Assessment & Plan (09/12/2022 11:40 AM EST): -stable on PPI Malignant neoplasm of kidney excluding renal svivuw7207/29/2019 Assessment & Plan (09/12/2022 11:41 AM EST): -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, present since 2019, s/p URS and laser ablation, tumor recurrence andhas been getting chemo (last dose a few months ago), now scheduled for surgery Acquired absence of pgtdon9807/18/2018Malignant neoplasm of qokiik4007/07/2018 Xycpezwpcsrc00/22/2017 Current Treatment and Therapy Plans No current plan information found. Past Treatment and Therapy Plans Plan NameStart DateDiscontinue DateTreatment MedicationsDiscontinue ReasonPlan ProviderCyclesAMB PEMBROLIZUMAB 200MG - Q21D01/02//04/2024* pembrolizumab IV infusion (KEYTRUDA) Caesar Dickey MD14 of 15 cycles startedAMB GEMCITABINE 1000 D1,8 CARBOPLATIN 5 D1 - Q21D11/27/20211015/* CARBOplatin iv piggyback (PARAPLATIN) * gemcitabine iv piggyback (GEMZAR) * palonosetron (ALOXI) Soren Gan MD4 of 6 cycles completedGEMCITABINE 1000 CISPLATIN 35 D1,8 - Q21D - 4 YQEJLW65* CISplatin iv piggyback or iv infusion * fosaprepitant (EMEND) * gemcitabine iv piggyback (GEMZAR) Glen Jones, DOTreatment not started
--- OUTSIDE RECORDS SUMMARY | 2025-09-16 08:18 | XMS_ITS | CCD ---
Author Organization [facility] Care Team Providers Care Machinery Erector Name Role Phone PHYSICIAN, DEFAULT Unavailable Unavailable PHYSICIAN, DEFAULT Unavailable Unavailable PHYSICIAN, DEFAULT Unavailable Unavailable PHYSICIAN, DEFAULT Unavailable Unavailable Sergio Sneed MD Primary Care Provider Jian Rodriguez MD Unavailable Unavailable Mike BARBER, Lauren Barros Unavailable Soren Perea MD Unavailable Corazon Maxwell PA-C Unavailable Augusto Sauceda Unavailable Shawn Nelson Unavailable Sergio Sneed MD Primary Care Provider [phone] Jian Rodriguez MD Unavailable Unavailable Brit FOUNTAIN, Soren Unavailable Keven Castaneda MD Unavailable Sergio Sneed Primary Care Physician Sergio Sneed MD Primary Care Provider Graeme Vazquez MD Unavailable Saray BARBER, Margot Unavailable [phone] Patricia Conteh APRN.CNP Unavailable PAY ., [...] DR MILTON Attending Unavailable HOY ., DR MLITON Consulting Unavailable HOY ., DR MILTON Primary Care Unavailable Jian Rodriguez MD Unavailable Jian RODRIGUEZ Attending Unavailable Jian RODRIGUEZ Attending Unavailable Saray RN, Margot Unavailable Sergio Sneed MD Primary Care Provider [phone] Unavailable Primary Care Provider Unavailabl e Might Marilu CULVER Primary Care Provider [phone] Sergio Sneed MD Primary Care Provider [phone] Might RELAY MOTORMAN - SPUD GRADER, Marilu Nelson Primary Care Provider MIGHT, MARILU [...] MIGHT, MARILU W Primary Care Unavailable Might RELAY MOTORMAN-SPUD GRADER, Marilu Nelson Primary Care Provider SERGIO SNEED Primary Care Unavailable CARDIOLOGY, [facility] Consulting Unavailable KENNEDY, RD U Admitting Unavailable KENNEDY, RD U Attending Unavailable DIVISION OF INFECTIOUS DISEASE, [facility] Consulting Unavailable [place], CARDIOTHORACIC SURGE[facility] FOR [facility] Unavailable ONLY), IP WOUND CARE [...] [ADHESIVE TAPE (ROSINS)]Propensity to adverse reactions to padtzidsu71-85-4469Fshwr: See CommentsU[facility] (2 sources)Adhesive Tape; Translations: [Tape]Allergy to substanceBlister of skin without infection (disorder)[facility] (17 sources)DesonideDrug Vaeapha85-57-2968Njvvhfz, Other (See Comments)[facility] (1 source)No Known Medication Allergies; Translations: [No Known Medication Allergies]Propensity to adverse reactions (disorder)[facility] (4 sources)Desonide; Translations: [DESONIDE]Drug Gtreyxf50-20-7571LqvdpqrrjPrem[facility] Rep[facility] (10 sources)Adhesive agent; Translations: [ADHESIVE]Propensity to adverse reactions to ujyx54-20-0163XmrhHzqZkogyi Health SystemNEGATED: Highlighted row has been ruled out! (1 source)Drug allergyExec[facility]rology of [facility] Medications Current Medications MedicationDrug Class(es)DatesSig (Normalized)Sig (Original)amLODIPine 10 mg oral tablet (20 sources)Dihydropyridine Calcium Channel BlockerStart: 05-10-4011gvrf 0.5 tablet by mouth in the morningamLODIPine (NORVASC) 10 mg tablet Take 0.5 tablets (5 mg total) by mouth in the morning. 5ActiveStart: 05-05-2018 End: 56-19-7357ietr 1 tablet by mouth once daily at bedtimeamLODIPine (NORVASC) 10 mg tablet Take 10 mg by mouth daily at bedtime. 0 05/05/2018 05/03/2022 Disc ontinuedamLODIPine Besylate ActiveComment on above:Take 10 mg by mouth daily at bedtime. Take 10 mg by mouth once daily.aspirin 81 mg chewable tablet (20 sources)Platelet Aggregation Inhibitor, Nonsteroidal Anti-inflammatory Drug Start: 98-77-4442jjmdyae chewable tablet 324 mgaspirin 81 mg chewable tablet Chew 1 tablet (81 mg total) and swallow in the morning. Activetake 1 tablet by mouth once dailyaspirin, enteric coated (ASPIRIN, ENTERIC COATED) 81 mg EC tablet Take 81 mg by mouth once daily. ActiveBayer Aspirin ActiveComment on above:Take 81 mg by mouth once daily.atorvastatin 10 mg oral tablet (20 sources)HMG-CoA Reductase InhibitorStart: 33-90-8063yzkv 1 tablet by mouth once dailyatorvastatin (LIPITOR) 10 mg tablet Indications: Other hyperlipidemia TAKE ONE TABLET BY MOUTH DAILY 90 tablet 1 03/05/2019 ActiveStart: 06-13-2018 take 1 tablet by mouth once dailyatorvastatin (LIPITOR) 80 mg tablet Take 80 mg by mouth once daily. 06/13/2018 ActiveLipitor ActiveComment on above:Take 10 mg by mouth once daily. balsalazide disodium 750 mg oral capsule (20 sources)AminosalicylateStart: 25-52-7517syno 3 capsules by mouth three times dailybalsalazide (COLAZAL) 750 MG capsule Indications: Ulcerative pancolitis (HCC) Take 3 capsules by mouth 3 times daily 90 capsule 05/14/2024 ActiveStart: 89-60-4537ndol 1 capsule by mouth in the morning, then take 1 capsule by mouth three times dailybalsalazide (COLAZAL) 750 mg capsule Take 1 capsule (750 mg total) by mouth in the morning. Take one three times daily . 06/25/2017 Active Start: 06-25-2017 End: 74-75-0796shyw 3 capsules by mouth once dailybalsalazide (COLAZAL) 750 mg capsule Take 2,250 mg by mouth once daily. 06/25/2017 12/24/2023 Discontinued (Discontinued by Patient)Start: 60-55-1872qwau 2 capsules by mouth once daily balsalazide (COLAZAL) 750 mg capsule Take 1,500 mg by mouth once daily. 0 06/25/2017 ActiveStart: 41-80-9288gndb 2 capsules by mouth three times daily [...] (8 sources)alpha-Adrenergic [place], beta-Adrenergic BlockerStart: 02-28-2022 End: 75-46-2487nreqqfzmky (COREG) 3.125 mg tabletCarvedilol ActiveCentrum (4 sources)Centrum ActiveCentrum Silver (1 source)Start: 43-48-7419Jairqwr Silver Oral, Daily, Refill(s) 0 Start Date: 08/16/21 Status: Orderedcephalexin 500 mg oral capsule (6 sources)Cephalosporin AntibacterialStart: 04-23-2025 End: 89-48-6683oihr 1 capsule by mouth three times dailyCEPHalexin (KEFLEX) 500 mg capsule Take 1 capsule (500 mg total) by mouth 3 (three) times a day for12 days. 36 capsule 04/23/2025 05/05/2025 ActiveStart: 01-04-2025 End: 21-31-1570pakb 1 capsule by mouth four times dailycephALEXin [...] tablet (10 sources)P2Y12 Platelet InhibitorStart: 04-21-2024 End: 21-35-7523detpyrzrrax (PLAVIX) 75 MG tablet Take 1 tablet [...] Food Allergenic Extract, Non-Standardized Plant Allergenic ExtractStart: 32-62-9469Fejhtqbpv Start Date: 11/29/21 Status: Ordered End: 14-47-1783qhpf 1 capsule by mouth twice dailyCranberry 500 mg cap Take 500 mg by mouth twice daily. 0 11/12/2022 DiscontinuedCranberry Activetake 1 capsule by mouth twice dailyCranberry 500 mg cap Take 500 mg by mouth twice daily. 0 ActiveComment on above:Take 500 mg by mouth twice daily. enteric contrast (will be provided with radiology test) (20 sources)Start: 96-59-1861csdbdab contrast (will be provided with radiology test) [...] guidelines 1 Each 10/23/2024 ActiveStart: 08-21-2024 End: 47-55-5306cogsunz contrast (will be provided with radiology test) Indications: Malignant neoplasm of overlapping sites of bladder (HCC) For CT CHESTABD/PEL W IVCON Routine order Administer, As Directed One Time Only, via Oral, Rectal, both Oral and Rectal, Enteric Tube, Stoma or Indwelling Catheter, Enteric Contrast as designated per enteric contrast guidelines 1 Each 08/21/2024 10/23/2024 Discontinued (Course of therapy completed)Start: 49-53-2468lyjnziq contrast (will be provided with radiology test) Indications: Malignant neoplasm of overlapping sites of bladder (HCC) For CT CHESTABD/PEL W IVCON Routine order Administer, As Directed One Time Only, via Oral, Rectal, both Oral and Rectal, Enteric Tube, Stoma or Indwelling Catheter, Enteric Contrast as designated per enteric contrast guidelines 1 Each 08/21/2024 ActiveStart: 05-18-2024 End: 40-18-1237luxzuln contrast (will be provided with radiology test) [...] 05/18/2024 10/23/2024 Discontinued (Course of therapy completed)Start: 17-46-1543xyhoxyl contrast (will be provided with radiology test) [...] enteric contrast guidelines 1 Each 05/18/2024 ActiveStart: 15-08-6062sthwbkj contrast (will be provided with radiology test) [...] 1 Each 0 05/18/2024 ActiveStart: 12-20-2023 End: 91-62-2856guebkcw contrast (will be provided with radiology test) For CT CHESTABD/PEL W IVCON Routine order Administer, As Directed One Time Only, via Oral, Rectal, both Oral and Rectal, Enteric Tube, Stoma orIndwelling Catheter, Enteric Contrast as designated per enteric contrast guidelines 1 Each 0 024 12/21/2023 ExpiredStart: 07-18-2023 End: 15-36-3828npbfynh contrast (will be provided with radiology test) For CT CHESTABD/PEL W IVCON Routine order Administer, As Directed One Time Only, via Oral, Rectal, both Oral and Rectal, Enteric Tube, Stoma orIndwelling Catheter, Enteric Contrast as designated per enteric contrast guidelines 1 Each 0 023 07/19/2023 ExpiredStart: 05-16-2023 End: 41-94-4478pkevrss contrast (will be provided with radiology test) For CT CHESTABD/PEL W IVCON Routine order Administer, As Directed One Time Only, via Oral, Rectal, both Oral and Rectal, Enteric Tube, Stoma orIndwelling Catheter, Enteric Contrast as designated per enteric contrast guidelines 1 Each 05/16/2023 06/28/2023 Discontinued (Discontinued by Patient)Start: 05-16-2023 End: 42-41-5856mxzwibx contrast (will be provided with radiology test) For CT CHESTABD/PEL W IVCON Routine order Administer, As Directed One Time Only, via Oral, Rectal, both Oral and Rectal, Enteric Tube, Stoma orIndwelling Catheter, Enteric Contrast as designated per enteric contrast guidelines 1 Each 0 023 06/28/2023 Discontinued (Discontinued by Patient)Start: 58-53-6552ijmqrjo contrast (will be provided with radiology test) For CT CHESTABD/PEL W IVCON Routine order Administer, As Directed One Time Only, via Oral, Rectal, both Oral and Rectal, Enteric Tube, Stoma orIndwelling Catheter, Enteric Contrast as designated per enteric contrast guidelines 1 Each 0 05/16/2023 ActiveStart: 08-06-2018 End: 13-65-3561bcldrmr contrast (will be provided with radiology test) [...] 20 mg oral tablet (20 sources)Loop DiureticStart: 42-81-5842nayy 1 tablet by mouth once daily furosemide [...] hydrochloride 1500 mg oral tablet (5 sources)Start: 05-35-4758sydy 1500 mg by mouth once dailyglucosamine 1,500 mg, Oral, Daily, Refills(s) 0 Start Date: 07/13/19 Status: OrderedGlucosamine YkehplSxxhgfshruc-Ldkkhytje-Riy C-Mn (GLUCOSAMINE 1500 COMPLEX) CAPS (5 sources)Gvnvvdlwffl-Vqpnonoky-Cng C-Mn (GLUCOSAMINE 1500 COMPLEX) CAPS Take by mouth UearchKkotmmmuxik-Ihqskcmzm-Lfg C-Mn (GLUCOSAMINE 1500 COMPLEX) CAPS Take by mouth 0 Glynbh76 hr guaiFENesin 600 mg extended release oral tablet (5 sources)Start: 04-23-2025 End: 46-04-7953fyxy 1 tablet by mouth onceguaiFENesin (MUCINEX) 600 mg tablet extended release 12hr Take 1 tablet (600 mg total) by mouth every 12 (twelve) hours for 14 days. 28 tablet 04/23/2025 05/07/2025 ActivehydrALAZINE hydrochloride 25 mg oral tablet (20 sources)Arteriolar VasodilatorStart: 71-60-3490zqwo 1 tablet by mouth three times dailyhydrALAZINE (APRESOLINE) 25 mg tablet Take 25 mg by mouth three times a day. 02/21/2022 ActiveStart: 95-96-0868lifnJLKVWRR (APRESOLINE) 50 mg tablet Take 25 mg by mouth three times a day. 0 02/21/2022 ActiveStart: 45-62-4825hhiq 1 tablet by mouth three times dailyhydrALAZINE (APRESOLINE) 50 mg tablet Take 50 mg by mouth three times daily. 0 02/21/2022 ActiveStart: 97-20-1590wrbc 1 tablet by mouth four times dailyhydrALAZINE 10 mg Tab 10 mg = 1 tab(s), Oral, QID Start Date: 08/16/21 Status: OrderedhydrALAZINE HCl Active End: 74-10-8963fllo 2 tablets by mouth three times dailyhydrALAZINE [...] 76 % injection 75 mL (1 source)Start: 47-40-4693cefhgjlud (ISOVUE-370) 76 % injection 75 mLIron (1 source)take 1 tablet by mouth three times weeklyIron (Ferrous Sulfate) 325 (65 Fe) MG 1 tablet Orally Three times a Week Ltoeqk66 hr isosorbide mononitrate 30 mg extended release oral tablet (20 sources)Nitrate VasodilatorStart: 04-09-2024 End: 01-25-6495zygwinyaik mononitrate (IMDUR) 30 MG extended release tablet Take 1 tablet by mouth 04/09/2024 04/04/2025 ActiveComment on above:Take 30 mg by mouth once daily.isosorbide dinitrate 20 mg oral tablet (20 sources)Nitrate VasodilatorStart: 22-61-9762dfji 1 tablet by mouth three times dailyisosorbide dinitrate (ISORDIL) 20 mg tablet Take 20 mg by mouth three times a day. 08/15/2023 ActiveStart: 62-82-5858klny 1 tablet by mouth twice dailyisosorbide dinitrate 10 mg Tab 10 mg = 1 tab(s), Oral, BID Start Date: 08/16/21 Status: Ordered End: 60-88-5920fbfaeyqqao dinitrate (ISORDIL) 10 mg tablet Take 20 mg by mouth three times daily. 0 12/31/2022 DiscontinuedIsosorbide Dinitrate ActiveComment on above:Take 20 mg by mouth three times daily.Take 20 mg by mouth three times a day.iv contrast (will be provided with radiology test) (20 sources)Start: 78-40-2201hn contrast (will be provided with radiology test) [...] link. 1 Each 10/23/2024 ActiveStart: 08-21-2024 End: 57-54-8339eg contrast (will be provided with radiology test) [...] 10/23/2024 D iscontinued (Course of therapy completed)Start: 76-04-7363ej contrast (will be provided with radiology test) [...] link. 1 Each 08/21/2024 ActiveStart: 05-18-2024 End: 91-88-9841me contrast (will be provided with radiology test) [...] 05/18/2024 10/23/2024 Discontinued (Course of therapy completed)Start: 61-95-9138tj contrast (will be provided with radiology test) [...] administration guidelines link. 1 Each 05/18/2024 ActiveStart: 59-85-7846nk contrast (will be provided with radiology test) [...] 1 Each 0 05/18/2024 ActiveStart: 12-20-2023 End: 94-37-5968ke contrast (will be provided with radiology test) [...] Each 0 12/20/2023 12/21/2023 ExpiredStart: 07-18-2023 End: 21-10-5009df contrast (will be provided with radiology test) [...] Each 0 07/18/2023 07/19/2023 ExpiredStart: 05-16-2023 End: 75-28-2029do contrast (will be provided with radiology test) [...] 12/24/2023 Discontinued (Discontinued by Patient)Start: 05-16-2023 End: 88-35-4970am contrast (will be provided with radiology test) [...] 0 05/16/2023 12/24/2023 Discontinued (Discontinued by Patient)Start: 63-17-7506ho contrast (will be provided with radiology test) [...] link.1 Each 0 05/16/2023 ActiveStart: 08-06-2018 End: 40-36-1983ue contrast (will be provided with radiology test) [...] the CT contrast administration guidelines link.lactobacillus acidophilus [id number] unt oral capsule (6 sources)lactobacillus acidophilus 100 mg (1 billion cell) cap(s) Take by mouth. Activelevothyroxine sodium 0.025 mg oral tablet (20 sources)l-ThyroxineStart: 54-52-2464cyee 1 tablet by mouth once daily in [...] oral tablet (20 sources)Angiotensin 2 Receptor BlockerStart: 78-66-5140chwaeurd (COZAAR) 50 mg tablet Take 50 mg by mouth. 0 07/13/2019 ActiveStart: 05-15-2018 End: 24-71-4466sumq 1 tablet by mouth twice dailylosartan (COZAAR) [...] oxide 400 mg oral tablet (13 sources)Start: 04-99-7005awtk 1 tablet by mouth in the morningmagnesium oxide (MAGOX) 400 mg tablet Take 1 tablet (400 mg total) by mouth in the morning. 30 tablet 2 2025 Activemagnesium oxide 400 mg magnesium tab Take 400 mg by mouth. Xahwsi38 hr metoprolol succinate 25 mg extended release oral tablet (20 sources)beta-Adrenergic BlockerStart: 08-16-2021 End: 05-02-0852kzpl 1 mg by mouth once dailymetoprolol 25 mg ER Tab mg tab(s), Oral, Daily Start Date: 08/16/21 Status: Orderedtake 2 tablets by mouth every twenty-four hours in the morningmetoprolol succinate XL (TOPROL XL) 25 mg 24 hr tablet Take 2 tablets (50 mg total) by mouth in themorning. Active End: 28-91-4742mqvu 1 tablet by mouth twice dailymetoprolol tartrate, [...] disintegrating oral tablet (20 sources)Serotonin-3 Receptor AntagonistStart: 41-45-9344aqacbsexjrl orally disintegrating (ZOFRAN ODT) 4 mg disintegrating tablet 11/18/2023 ActiveStart: 11-21-2021 End: 24-72-3121fssf 1 tablet by mouth every eight hours as neededondansetron (ZOFRAN) 8 mg tablet Take 1 tablet by mouth every 8 hours as needed for nausea/vomiting. 90 tablet 2 11/21/2021 05/03/2022 DiscontinuedComment on above: Take 1 tablet by mouth every 8 hours as needed for nausea/vomiting.pantoprazole 40 mg delayed release oral tablet (20 sources)Proton Pump InhibitorStart: 18-39-9640adbnfpzsuacs DR (PROTONIX) 40 mg tablet 08/15/2023 Active4 ml pembrolizumab 25 mg/ml injection (20 sources)Programmed Receptor-1 Blocking Antibodypembrolizumab (KEYTRUDA) 25 mg/mL injection Inject intravenously. Activepembrolizumab (KEYTRUDA) 100 MG/4ML SOLN Infuse intravenously ActiveKeytruda ActiveComment on above:Inject intravenously.predniSONE 20 mg oral tablet (20 sources)Start: 12-20-2023 End: 32-65-6042isca 1 tablet by mouth once dailypredniSONE (DELTASONE) 20 mg tablet Take 1 tablet by mouth once daily. Prednisone 20 mg for 5 days then 10 mg daily. 60 tablet 03/30/2024 ActiveStart: 08-29-2023 End: 44-58-1344wxwg 4 tablets by mouth once dailypredniSONE (DELTASONE) 10 mg tablet Take 4 tablets by mouth once daily. 120 tablet 0 08/29/2023 09/28/2023 ActiveStart: 01-23-2023 End: 49-68-3911rdqi 1 tablet by mouth once dailypredniSONE (DELTASONE) [...] mg oral tablet (12 sources)PhenothiazineStart: 11-21-2021 End: 43-60-2660chfc 1 tablet by mouth every six hours as neededprochlorperazine (COMPAZINE) 10 mg tablet Take 1 tablet by mouth every 6 hours as needed. 100 tablet 2 11/21/2021 05/03/2022 DiscontinuedComment on above:Take 1 tablet by mouth every 6 hours as needed.tamsulosin hydrochloride 0.4 mg oral capsule (20 sources)alpha-Adrenergic BlockerStart: 05-23-2022 End: 98-23-7619fsak 1 capsule by mouth once dailytamsulosin (FLOMAX) 0.4 mg Take 1 capsule by mouth once daily. 30 capsule 5 05/31/2023 ActiveStart: 09-30-2019 End: 87-92-9022mrgznbazoj (FLOMAX) 0.4 mg Take 1 capsule by mouth once daily 30 minutes after the same meal 30 capsule 2 11/01/2021 ActiveStart: 05-04-2018 End: 96-75-8279zmet 2 capsules by mouth once dailytamsulosin ER [...] (Original)acetaminophen 325 mg oral tablet (16 sources)Start: 15-60-4345wudf 2 tablets by mouth every four hours as needed acetaminophen (TYLENOL) 325 mg tablet Take 2 tablets by mouth every 4 hours as needed for pain. 30 tablet 0 05/23/2022 ActiveStart: 09-30-2019 End: 80-85-4825klsl 2 tablets by mouth every four hours as neededacetaminophen (TYLENOL) 325 mg tablet Take 2 tablets by mouth every 4 hours as needed for Pain. 30 tablet 0 09/30/2019 05/03/2022 DiscontinuedComment on above:Take 2 tablets by mouth every 4 hours as needed for Pain.ciprofloxacin 250 mg oral tablet (1 source)Quinolone AntimicrobialStart: 59-49-4339mllp 1 tablet by mouth once dailyCipro 250 mg Tab 250 mg = 1 tab(s), Oral, Daily, Take 1 tablet the day before the procedure and 1 tablet after the procedure, # 2 tab(s), Refills(s) 0, Pharmacy: [facility] [id number], 167, cm, 12/05/22 9:25:00 EST, Height/Length Dosing, 84, kg, 12/05/22 9:25:00 ES... Start Date: 12/05/22 Status: Ordereddocusate sodium 100 mg oral capsule (5 sources)Start: 11-12-2022 End: 53-64-9308jgar 1 capsule by mouth twice dailydocusate sodium (COLACE) 100 mg capsule Take 1 capsule by mouth twice daily for 14 days. Stop taking if you develop diarrhea or loose stools 28 capsule 0 11/12/2022 11/26/2022 Start: 32-84-1151zrgf 1 capsule by mouth twice dailydocusate sodium (COLACE) 100 mg capsule Take 1 capsule by mouth twice daily. 10 capsule 0 05/23/2022 Active Comment on above:Take 1 capsule by mouth twice daily.Take 1 capsule by mouth twice daily for 14 days. Stop taking if you develop diarrhea or loose stools empagliflozin 10 mg oral tablet (20 sources)Sodium-Glucose Cotransporter 2 Inhibitor End: 56-92-8354fnpt 1 tablet by mouth once dailyempagliflozin (JARDIANCE) 10 MG tablet Take 1 tablet every day by oral route for 90 days. 09/10/2024 Discontinued (LIST CLEANUP)Comment on above:Take 10 mg by mouth daily with breakfast.enalapril maleate 5 mg oral tablet (9 sources)Angiotensin Converting Enzyme Inhibitor End: 62-36-0870itgo 1 tablet by mouth once dailyenalapril (VASOTEC) 5 mg tablet Take 5 mg by mouth once daily. 04/04/2023 Discontinued (Changing Therapy/Dosage Form)Comment on above:Take 5 mg by mouth once daily.Fish Oil-[place]-3 Fatty Acids (FISH OIL) 300-1,000 mg cap (13 sources)take 1 capsule by mouth once dailyFish Oil-[place]-3 Fatty Acids (FISH OIL) 300-1,000 mg cap Take 2 g by mouth once daily. 0 ActiveComment on above: Take 2 g by mouth once daily. hydroCHLOROthiazide 25 mg / triamterene 37.5 mg oral tablet (1 source)Potassium-sparing Diuretic, Thiazide DiureticStart: 05-14-2018 End: 22-33-9937ifol 1 tablet by mouth once dailytriamterene-hydrochlorothiazide (MAXZIDE-25) 37.5-25 mg per tablet Take 1 tablet by mouth once daily. 0 05/14/2018 11/01/2021 DiscontinuedComment on above:Take 1 tablet by mouth once daily. Methylcellulose (1 source) End: 85-28-2334qcxqnyuxxvkxzwm (CITRUCEL ORAL) Take 1 Tablespoonful by mouth once daily. 0 11/21/2021 DiscontinuedComment on above:Take 1 Tablespoonful by mouth once daily. omega-3 fatty acids/fish oil (FISH OIL-OMEGA-3 FATTY ACIDS) 300-1,000 mg cap (4 sources) End: 46-64-1209smfk 1 capsule by mouth once dailyomega-3 fatty [...] release oral capsule (20 sources)Proton Pump InhibitorStart: 22-12-7646quvw 20 mg by mouth once daily omeprazole 20 mg, Oral, Daily, Refills(s) 0 Start Date: 07/13/19 Status: Ordered Start: 06-27-2018 End: 77-17-8677ohwg 1 capsule by mouth twice dailyomeprazole (PRILOSEC) [...] mg oral tablet (3 sources)Cholinergic Muscarinic AntagonistStart: 65-94-9131ydhx 1 tablet by mouth every eight hours as neededoxybutynin (DITROPAN) 5 mg tablet Take 1 tablet by mouth three times daily as needed (bladder spasms). 12 tablet 0 05/23/2022 ActiveComment on above:Take 1 tablet by mouth three times daily as needed (bladder spasms).oxyCODONE hydrochloride 5 mg oral tablet (7 sources)Opioid AgonistStart: 26-90-7855dptc 1 tablet by mouth every eight hours as needed for painoxyCODONE IR (ROXICODONE) 5 mg immediate release tablet Indications: Postoperative pain Take 1 tablet by mouth every 8 hours as needed for pain. 8 tablet 0 11/12/2022 ActiveStart: 10-96-8453bxsu 1 tablet by mouth every eight hours as needed for painoxyCODONE IR (ROXICODONE) 5 mg immediate release tablet Indications: Urothelial carcinoma (HCC) Take 1 tablet by mouth every 8 hours as needed for pain. 4 tablet 0 05/23/2022 ActiveComment on above: Take 1 tablet by mouth every 8 hours as needed for pain.potassium chloride 10 meq extended release oral capsule (20 sources)Start: 40-79-3651svehtexlp chloride SR (MICRO-K) 10 mEq CR capsule take 1 tablet by mouth twice dailypotassium chloride (K-TAB) 10 mEq tablet Take 10 mEq by mouth twice daily. ActivePotassium Chloride ActiveComment on above: Take 10 mEq by mouth twice daily. Problems Active Problems Problem ClassificationProblemDateDocumented DateEpisodic/ChronicAcute and unspecified renal failure (1 source)Chronic renal zwwpfax38-48-6928FbadslpGldixajp of urinary tract (2 sources)History of calculus of kidney; Translations: [Personal history of urinary calculi]Onset: 994440-28-8357RxadbfnsDyjunf of bladder (20 sources)Malignant tumor of urinary bladder; Translations: [Malignant neoplasm of bladder, unspecified]Onset: 155341-17-4733MgbtzysIrejnq of kidney and renal pelvis (20 sources)Malignant tumor of kidney; Translations: [Malignant neoplasm of unspecified kidney, except renal pelvis]Onset: 07-29-2019 Resolved: 742598-27-0248MrlzfqyXgtfny of other urinary organs (20 sources)Malignant tumor of ureter; 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]Onset: 09-20-6226MadtylxJnuvzg; other and unspecified primary (1 source)History of bladder rsylviem41-72-1591SqdkguuzGbmgvol dysrhythmias (7 sources)Atrial flutter; Translations: [Unspecified atrial flutter]Onset: 04-22-2024 Resolved: 163200-73-6447GrfmxdwMyqxzyj kidney disease (20 sources)Chronic kidney disease stage 3; Translations: [Stage 3 chronic kidney disease]Onset: 933032-37-6201YymgzneGiljejw kidney disease (2 sources)Chronic kidney disease; Translations: [Chronic kidney disease, stage 3b]Onset: 43-89-9204Jtpkkwd ulcer of skin (2 sources)Skin ulcer; Translations: [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 sites with fat layer exposed]Onset: 662963-37-1169RorctvtKhinobfphf disorders (12 sources)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; Translations: [Other atrioventricular block]Onset: hronic Congestive heart failure; nonhypertensive (9 sources)Acute systolic (congestive) heart failure; Translations: [Chronic systolic heart failure]Onset: 104258-88-0547NoqhrnjQmidkfrq atherosclerosis and other heart disease (2 sources)Atherosclerotic heart disease of [place] coronary artery without angina pectoris; Translations: [Atherosclerotic heart disease of [place] coronary artery without angina pectoris]Onset: 22-55-7092AhmqfsvWsctxxrj of mouth; excluding dental (1 source)Xerostomia; Translations: [Dry mouth, unspecified]34-77-7692Phfcpcvf Disorders of lipid metabolism (17 sources)Pure hypercholesterolemia, unspecified; Translations: [Hyperlipidemia, unspecified]Onset: 363025-42-7761NcragasFcfougrjsr disorders (20 sources)Gastroesophageal reflux disease without esophagitis; Translations: [Gastro-esophageal reflux disease without esophagitis]Onset: 08-10-2019 40-63-8900IdrxdcdIqmkwttcd hypertension (20 sources)Hypertensive disorder; Translations: [Essential (primary) hypertension]Onset: 350727-54-6381WebmthjQxyqu valve disorders (1 source)Nonrheumatic mitral (valve) insufficiency; Translations: [NONRHEUMATIC MITRAL INSUFFICIENCY]Onset: 42-47-5028EqvvyanMqslethnkzz of prostate (3 sources)Benign prostatic hypertrophy with outflow obstruction; Translations: [Benign prostatic hyperplasia with lower urinary tract symptoms]Onset: 86-87-6718PewvzptOhliveasxywm with complications and secondary hypertension (20 sources)Hypertensive heart failure; Translations: [Hypertensive heart disease with heart failure]Onset: 292618-52-1052SjuniwtRutpnmb and fatigue (3 sources)Malaise and fatigue; Translations: [Other malaise]32-82-8811Obuivfao Nutritional deficiencies (1 source)Vitamin D deficiency, unspecified; Translations: [VITAMIN D DEFICIENCY UNSPECIFIED]Onset: 79-77-5231KcifnfaTjec wounds of head; neck; and trunk (12 sources)Open wound of left chest wall; Translations: [Unspecified open wound of left front wall of thorax without penetration into thoracic cavity, initial encounter]Onset: 661637-28-1730IutaqifdTckorafryqaddw (1 source)Unspecified osteoarthritis, unspecified site; Translations: [UNSPECIFIED OSTEOARTHRITIS UNS SITE]Onset: 79-56-2723UysavltKfsbs aftercare (1 source)Other buttermaker continuous churn (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; Translations: [OTH DIRECTOR WHOLESALE CURRENT DRUG THERAPY]Onset: 03-72-5080WmapnifgRmhhk aftercare (1 source)jail (current) use of aspirin; Translations: [SENIOR LIVING CURRENT USE OF ASPIRIN]Onset: 79-81-1779GvauqmalFvlug diseases of kidney and ureters (1 source)Urinary tract obstruction; Translations: [Other obstructive and reflux uropathy]Onset: 73-89-3155KdmuqkfhQjapf gastrointestinal disorders (1 source)Diarrhea, unspecifiedEpisodicOther injuries and conditions due to external causes (10 sources)Open wound; Translations: [Other injury of unspecified body region, initial encounter]Onset: 398982-56-7207OykvirxmLrash injuries and conditions due to external causes (7 sources)Surgical wound finding; Translations: [Other injury of unspecified body region, initial encounter]Onset: 968874-32-3017HecgjmljVazjq injuries and conditions due to external causes (2 sources)Other injury of unspecified body region, initial encounter; Translations: [Other injury of unspecified body region, initial encounter]Onset: 70-42-4237UylvzsvyYeuyn lower respiratory disease (1 source)Shortness of breath; Translations: [SHORTNESS OF BREATH]Onset: 19-63-5266XaaouyufQthyt lower respiratory disease (1 source)Shortness of breathOnset: 16-96-8615VdkrujcqVkevs nervous system disorders (4 sources)Tremor, unspecified; Translations: [TREMOR UNSPECIFIED]Onset: 18-82-4948BzmivioyRdfsf non-epithelial cancer of skin (1 source)Personal history of other malignant neoplasm of skin; Translations: [PERSONAL HX OTH MALIG NEOPLASMSKIN]Onset: 68-85-5000KfujztqyZjsup nutritional; endocrine; and metabolic disorders (20 sources)Obese class I; Translations: [Obesity, unspecified]Onset: 03-27-2022 94-90-4280IclwlyaSgjkn nutritional; endocrine; and metabolic disorders (2 sources)Abnormal weight loss; Translations: [Abnormal weight loss]12-20-2023 EpisodicOther screening for suspected conditions (not mental disorders or infectious disease) (1 source)Imaging result abnormal; Translations: [Abnormal findings on diagnostic imaging of other specified body structures]65-51-0901BalextlPgrstymy enteritis and ulcerative colitis (20 sources)Ulcerative pancolitis; 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]Onset: 08-11-2019 Resolved: 528535-52-3646QhpufzrYfloheif codes; unclassified (1 source)Acquired absence of kidney; Translations: [ACQUIRED ABSENCE OF KIDNEY] Onset: 56-59-9669DadhphbqKemnfcfg codes; unclassified (1 source)Acquired absence of other genital organ(s); Translations: [ACQUIRED ABSENCE OTH GENITAL ORGANS]Onset: 09-67-9637KfypfgdqKfqmlghl codes; unclassified (1 source)Other general symptoms and signs; Translations: [Other general symptoms]72-22-0080HjkaaaqyEhgntyxci and history of mental health and substance abuse codes (1 source)Personal history of nicotine dependence; Translations: [PERSONAL HISTORY OF NICOTINE DEPEND]Onset: 81-91-8884LliocuhpXlwn and subcutaneous tissue infections (2 sources)Abscess; Translations: [Cutaneous abscess, unspecified]Onset: 086175-82-0312JttbwgmkKdwcaua disorders (6 sources)Congenital hypothyroidism; 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]Onset: 190621-50-1398UerqwtnZzvizqmugayo (1 source)Drug therapy novshqq12-48-3478Diutqefpqvwi (1 source)CHRN KIDNEY DISEASE STG 3 UNSP; Translations: [CHRN KIDNEY DISEASE STG 3 UNSP]Onset: 07-70-5847Hurfegwioxco (3 sources)Pacemaker Problem; Translations: [Pacemaker Problem]Onset: 04-19-2025 Unclassified (1 source)Juan Joseqamar Cunah coming for leadless pacemaker by Dr Nadine Celis coming by ground - stableOnset: 18-97-5785Dorftvryjzck (1 source)Wound CheckOnset: 38-07-4090Pvshnxt tract infections (1 source)Acute cystitis; Translations: [Acute cystitis without hematuria] Episodic Past or Other Problems Problem ClassificationProblemDateDocumented DateEpisodic/ChronicAcute and unspecified renal failure (20 sources)Acute injury of kidney; Translations: [Acute kidney failure, unspecified]Onset: 735679-31-3592HryljnmdRekmsk of bladder (1 source)Personal history of malignant neoplasm of bladder; Translations: [PERSONAL HX MALIG NEOPLASM BLADDER]Onset: 62-64-5714YnwoyffaDoyjmp of other urinary organs (2 sources)History of malignant neoplasm of ureter; Translations: [Personal history of malignant neoplasm of ureter]Onset: 243463-27-4232Bvxbxgrc Complication of device; implant or graft (18 sources)Disorder of cardiac pacemaker system; Translations: [Unspecified complication of cardiac and vascular prosthetic device, implant and graft, initial encounter]Onset: 164693-59-0520IwcbdyzhGunxmltbce associated with dizziness or vertigo (4 sources)Dizziness and giddiness; Translations: [DIZZINESS AND GIDDINESS] Onset: 39-63-0564QcjjqfvzCeedharmfe and other anemia (1 source)Anemia, unspecified; Translations: [ANEMIA UNSPECIFIED]Onset: 25-12-3107PyyvcbbnKqhehrbi mellitus without complication (1 source)Other abnormal glucose; Translations: [OTHER ABNORMAL GLUCOSE]Onset: 66-68-5285RmplfkohYejphuoyjtqig symptoms and ill-defined conditions (20 sources)Tre hematuria; Translations: [Gross hematuria]Onset: 11-09-2022 20-49-8347IixcpdecOwtk disorders (7 sources)Mood disordersOnset: 655019-11-0241Axkcahkhtjp chest pain (4 sources)Chest discomfort; Translations: [Other chest pain]Onset: 09-10-2024 89-03-3267GyxdboivOsjjh diseases of kidney and ureters (20 sources)Hydronephrosis; Translations: [Unspecified hydronephrosis]Onset: 578161-59-0521JfkhqtkbJnjvy lower respiratory disease (2 sources)Other forms of dyspnea; Translations: [Other forms of dyspnea]Onset: 52-67-3525BxsbqzvpWlktc screening for suspected conditions (not mental disorders or infectious disease) (7 sources)Patient encounter status; Translations: [Encounter for screening for other disorder]Onset: 96-13-9857WvhuroikCahvlorr codes; unclassified (20 sources)Absent kidney; Translations: [Acquired absence of kidney]Onset: 571968-60-2807BjubogitJnfsckh (8 sources)Syncope and collapse; Translations: [Syncope and collapse]Onset: 65-00-4069UkoqhvnsFthcvhf disorders (6 sources)Disorder of thyroid gland; Translations: [Disorder of thyroid, unspecified]Onset: 758639-93-5651CfoppkzhPebglmyocsaw (4 sources)Onset: 04-22-2024 Resolved: Results Test NameValueInterpretationReference RangeFacilityOffice Visiton 07-19-2025 Follow-up [id number] Juan Jose Austin 1940 M Date Provider Department Center 07/19/2025 KEVEN UPLIDO Hos Family History Problem Relation Age of Onset Heart failure Mother Lung cancer Father Family Status - Relation Status Age at Mother Father Level of Service:29839 [place] OFFICE/OUTPATIENT ESTABLISHED MOD MDM 30 [facility] Onlyon 86-76-3936Fhnhzt [id number] Juan Jose Austin 1940 M Date Provider Department Center 07/06/2025 [id number], HISTORICAL CARD Tamiko Hos Family History Problem Relation Age of Onset Heart failure Mother Lung cancer Father Family Status - Relation Status Age at Mother Father DeceasedNoK[facility]tering [facility]No Panel Informationon 43-44-6792Yzczdsp in clinic today MANUALLY TRANSCRIBED RESULTSSelect [facility] Ykmvjm24ob [id number] consent for treatment obtained on 05/14/25 at 12:25pmNoKettering Health Dayton36Left voicemail with patient to get verbal consent for treatment [facility]36Writer called patient son as well to see if he could get back in touch with us or have his father give us a call back before his appointment time.Normal [place]36LVM another voicemail request a verbal consent for treatment for the patient to be seen today at 3:20[facility]36Called patient and left voicemail to get consent for treatment so telemed for 05/14/25 at 3:20 pm can be checked in.[facility] 37on [id number] to monitor for signs and symptoms of infection including fever, chills, shortness of breath, chest pain, abdominal pain, nausea, vomiting and diarrhea. Call our office if you notice any of these or go to the ED if needing toNormal [place]ervilleTelemedicineon [id number] Juan Jose Austin 1940 Melvin Gray Provider Department [place] 05/14/2025 ADELINA RODGERS [facility] IN[facility] Family History Problem Relation Age of Onset Heart failure Mother Lung cancer Father Family Status - Relation Status Age at Mother Father Level of Service:30406 [place] OFFICE/OUTPATIENT ESTABLISHED LOW MDM 20 MIN (GT) Reason for Visit and Comments: Follow-up [[id number]][facility]36on Patient's daughter left a voicemail requesting to speak with Adilia. Daughter stated that she was instructed by the patient's wound care provider (Harpreet Avalos) to contact our office regarding the patient's antibiotics. Daughter's phone number is [phone].[facility] HospitalCBC WITH AUTO DIFFERENTIALon 71-98-6603RGIYJCHBP ABSOLUTE COUNT (10*3/UL) BY AUTOMATED COUNT0.0 10*3/uLNormal0.0-0.2[facility] HospitalComment on above:Performed By: #### MG #### [facility] ([facility]) [address] [place] [address] VIRBASOPHILS RELATIVE PERCENT BY AUTOMATED COUNT0.3 %Normal [facility] HospitalComment on above:Performed By: #### MG #### [facility] ([facility]) [address] [place] [address] VIRCELLAVISION DIFFERENTIAL TYPEAUTOMATED DIFFERENTIALNormal [facility] HospitalComment on above:Performed By: #### MG #### [facility] ([facility]) [address] [place] [address] VIREosinophils (Bld) [#/Vol]0.5 10*3/uLHigh0.0-0.4[facility] HospitalComment on above:Performed By: #### MG #### [facility] ([facility]) [address] [place] [address] VIREOSINOPHILS RELATIVE PERCENT BY AUTOMATED COUNT6.0 %Normal [facility] HospitalComment on above:Performed By: #### MG #### [facility] ([facility]) [address] [place] [address] VIRErythrocyte distribution width (RBC) [Ratio]15.6 %High 11.5-15[facility] HospitalComment on above:Performed By: #### MG #### [facility] ([facility]) [address] [place] [address] VIRHematocrit (Bld) [Volume fraction]33.6 %Msa25-70HuvRtyhvq [facility] HospitalComment on above:Performed By: #### MG #### [facility] ([facility]) [address] [place] [address] VIRHemoglobin (Bld) [Mass/Vol]11.4 g/jOQmm90-18HxxIckdnd [facility]ñiz HospitalComment on above:Performed By: #### MG #### [facility] ([facility]) [address] [place] [address] VIRLYMPHOCYTES ABSOLUTE COUNT (10*3/UL) BY AUTOMATED COUNT0.6 10*3/uLLow1.0-3.5[facility] HospitalComment on above:Performed By: #### MG #### [facility] ([facility]) [address] [place] [address] VIRLYMPHOCYTES RELATIVE PERCENT BY AUTOMATED COUNT6.7 %Normal [facility] HospitalComment on above:Performed By: #### MG #### [facility] ([facility]) [address] [place] [address] VIRMCH (RBC) [Entitic mass]29.0 mwVmbeod65-11JibOslmxb Muñiz HospitalComment on above:Performed By: #### MG #### [facility] ([facility]) [address] [place] [address] VIRMCHC (RBC) [Mass/Vol]34.1 g/pAWeenje99-59ObsVephou [facility] HospitalComment on above:Performed By: #### MG #### [facility] ([facility]) [address] [place] [address] VIRMCV (RBC) [Entitic vol]85 qRJplghf30-779TxrGqkdud Muñiz HospitalComment on above:Performed By: #### MG #### [facility] ([facility]) [address] [place] [address] VIRMONOCYTES ABSOLUTE COUNT (10*3/UL) BY AUTOMATED COUNT0.6 10*3/uLNormal0.0-0.9[facility] HospitalComment on above:Performed By: #### MG #### [facility] ([facility]) [address] [place] [address] VIRMONOCYTES RELATIVE PERCENT BY AUTOMATED COUNT6.5 %Normal [facility]nol[facility] hospital annistona [facility] HospitalComment on above:Performed By: #### MG #### [facility] ([facility]) [address] [place] [address] VIRNEUTROPHILS ABSOLUTE COUNT BY AUTOMATED COUNT7.1 10*3/uLHigh 1.5-6.6[facility] HospitalComment on above:Performed By: #### MG #### [facility] ([facility]) [address] [place] [address] VIRNEUTROPHILS RELATIVE PERCENT BY AUTOMATED COUNT80.5 %Normal [facility] annistona [facility] HospitalComment on above:Performed By: #### MG #### [facility] ([facility]) [address] [place] [address] VIRPlatelet mean volume (Bld) [Entitic vol]7.3 fLNormal7-12 [facility] HospitalComment on above:Performed By: #### MG #### [facility] ([facility]) [address] [place] [address] VIRPlatelets (Bld) [#/Vol]187 10*3/sZMsgxxx690-985WihEyppdt [facility] HospitalComment on above:Performed By: #### MG #### [facility] ([facility]) [address] [place] [address] VIRRBC COUNT3.94 X10E12/LLow4.1-5.7[facility] Comment on above:Performed By: #### MG #### [facility] ([facility]) [address] [place] [address] VIRWBC (Bld) [#/Vol]8.8 10*3/uLNormal4-11[facility] HospitalComment on above:Performed By: #### MG #### [facility] [facility] ([facility]) [address] [place] [address] VIRCOMPREHENSIVE METABOLIC PANELon 83-14-8626Bebfzpk [Mass/Vol] 3.2 g/dLNormal3.2-5.3[facility] HospitalComment on above:Performed By: #### MG #### [facility] ([facility]) [address] [place] [address] VIRALP [Catalytic activity/Vol]52 U/XTzwfya16-868YxcWutwlh [facility] HospitalComment on above:Performed By: #### MG #### [facility] ([facility]) [address] [place] [address] VIRALT [Catalytic activity/Vol]13 U/LNormal<=40[facility] HospitalComment on above:Performed By: #### MG #### [facility] ([facility]) [address] [place] [address] VIRAnion gap [Moles/Vol]8 mmol/LNormal5-15[facility] HospitalComment on above:Performed By: #### MG #### [facility] ([facility]) [address] [place] [address] VIRAST [Catalytic activity/Vol]21 U/LNormal<=41[facility] HospitalComment on above:Performed By: #### MG #### [facility] ([facility]) [address] [place] [address] VIRBilirubin [Mass/Vol]0.3 mg/dLNormal0.3-1.2[facility] HospitalComment on above:Performed By: #### MG #### [facility] ([facility]) [address] [place] [address] VIRCalcium [Mass/Vol]7.8 mg/dLLow8.5-10.5[facility] HospitalComment on above:Performed By: #### MG #### [facility] ([facility]) [address] [place] [address] VIRChloride [Moles/Vol]108 mmol/HTwhvfb79-054WsxGrvvow [place] HospitalComment on above:Performed By: #### MG #### [facility] ([facility]) [address] [place] [address] VIRCO2 [Moles/Vol]27 mmol/LLoiowg95-19GenEkclme [facility] Comment on above:Performed By: #### MG #### [facility] ([facility]) [address] [place] [address] VIRCreatinine [Mass/Vol]1.54 mg/dLHigh0.60-1.30[facility] HospitalComment on above:Result Comment: METHOD TRACEABLE TO IDMS STANDARD Performed By: #### MG #### [facility] ([facility]) [address] [place] [address] VIRGFR/1.73 sq M.predicted among non-blacks MDRD (S/P/Bld) [Vol rate/Area]44 mL/min/{1.73_m2}Low>=60ProDiley Ridge Medical CenterComment on above: Result Comment: Reported eGFR is based on the CKD-EPI 2020 equation that does not use a race coefficient.Performed By: #### MG #### [facility] ([facility]) [address] [place] [address] VIRGlucose [Mass/Vol]123 mg/uQIuax69-85HsoAhkdvo [place] HospitalComment on above:Performed By: #### MG #### [facility] ([facility]) [address] [place] [address] VIRPotassium [Moles/Vol]4.3 mmol/LNormal3.5-5.0[facility] HospitalComment on above:Performed By: #### MG #### [facility] ([facility]) [address] [place] [address] VIRProtein [Mass/Vol]5.0 g/dLLow6.0-8.0ProDiley Ridge Medical CenterComment on above:Performed By: #### MG #### [facility] ([facility]) [address] [place] [address] VIRSodium [Moles/Vol]143 mmol/SHejlpy350-694BtxOrrdmh [place] HospitalComment on above:Performed By: #### MG #### [facility] ([facility]) [address] [place] [address] VIRUrea nitrogen [Mass/Vol]25 mg/dLNormal5-27ProDiley Ridge Medical CenterComment on above:Performed By: #### MG #### [facility] ([facility]) [address] [place] [address] VIRMAGNESIUMon 53-47-0820Xxyuqcawy [Mass/Vol]1.7 mg/dLLow 1.8-2.6ProDiley Ridge Medical CenterComment on above:Performed By: #### MG #### [facility] ([facility]) [address] [place] [address] VIRCBC WITH AUTO DIFFERENTIALon 13-68-8203QUJYGJGKG ABSOLUTE COUNT (10*3/UL) BY AUTOMATED COUNT0.0 10*3/uLNormal0.0-0.2[facility] HospitalComment on above:Performed By: #### CBCA #### [facility] ([facility]) [address] [place] [address] VIRBASOPHILS RELATIVE PERCENT BY AUTOMATED COUNT0.2 %Normal ProMShelby Memorial HospitalComment on above:Performed By: #### CBCA #### [facility] ([facility]) [address] [place] [address] VIRCELLAVISION DIFFERENTIAL TYPEAUTOMATED DIFFERENTIALNormal ProMShelby Memorial HospitalComment on above:Performed By: #### CBCA #### [facility] ([facility]) [address] [place] [address] VIREosinophils (Bld) [#/Vol]0.0 10*3/uLNormal0.0-0.4[facility] HospitalComment on above:Performed By: #### CBCA #### [facility] ([facility]) [address] [place] [address] VIREOSINOPHILS RELATIVE PERCENT BY AUTOMATED COUNT0.0 %Normal [facility] HospitalComment on above:Performed By: #### CBCA #### [facility] ([facility]) [address] [place] [address] VIRErythrocyte distribution width (RBC) [Ratio]15.5 %High 11.5-15ProSelect [facility]hillca [facility] HospitalComment on above:Performed By: #### CBCA #### [facility] ([facility]) [address] [place] [address] VIRHematocrit (Bld) [Volume fraction]33.9 %Qyp95-62KefMkvmaz [place] HospitalComment on above:Performed By: #### CBCA #### [facility] ([facility]) [address] [place] [address] VIRHemoglobin (Bld) [Mass/Vol]12.0 g/uJEav08-93KwrBdnxuc [place] HospitalComment on above:Performed By: #### CBCA #### [facility] ([facility]) [address] [place] [address] VIRLYMPHOCYTES ABSOLUTE COUNT (10*3/UL) BY AUTOMATED COUNT0.3 10*3/uLLow1.0-3.5[facility] HospitalComment on above:Performed By: #### CBCA #### [facility] ([facility]) [address] [place] [address] VIRLYMPHOCYTES RELATIVE PERCENT BY AUTOMATED COUNT2.9 %Normal [facility] HospitalComment on above:Performed By: #### CBCA #### [facility] ([facility]) [address] [place] [address] VIRMCH (RBC) [Entitic mass]29.6 ehRcbzqa28-87DacGevfba [place] HospitalComment on above:Performed By: #### CBCA #### [facility] ([facility]) [address] [place] [address] VIRMCHC (RBC) [Mass/Vol]35.3 g/yZWsovnv46-63SjwHlzbep [place] HospitalComment on above:Performed By: #### CBCA #### [facility] ([facility]) [address] [place] [address] VIRMCV (RBC) [Entitic vol]84 dPXpakir32-418DpaEvakuq [place] HospitalComment on above:Performed By: #### CBCA #### [facility] ([facility]) [address] [place] [address] VIRMONOCYTES ABSOLUTE COUNT (10*3/UL) BY AUTOMATED COUNT0.6 10*3/uLNormal0.0-0.9ProM[facility] HospitalComment on above:Performed By: #### CBCA #### [facility] ([facility]) [address] [place] [address] VIRMONOCYTES RELATIVE PERCENT BY AUTOMATED COUNT5.5 %Normal [facility] HospitalComment on above:Performed By: #### CBCA #### [facility] ([facility]) [address] [place] [address] VIRNEUTROPHILS ABSOLUTE COUNT BY AUTOMATED COUNT10.0 10*3/uL High1.5-6.6ProM[facility] HospitalComment on above:Performed By: #### CBCA #### [facility] ([facility]) [address] [place] [address] VIRNEUTROPHILS RELATIVE PERCENT BY AUTOMATED COUNT91.4 %Normal [facility] [place] HospitalComment on above:Performed By: #### CBCA #### [facility] ([facility]) [address] [place] [address] VIRPlatelet mean volume (Bld) [Entitic vol]7.5 fLNormal7-12 [facility] HospitalComment on above:Performed By: #### CBCA #### [facility] ([facility]) [address] [place] [address] VIRPlatelets (Bld) [#/Vol]211 10*3/qMSayvby483-546WxmTrdexy [place] HospitalComment on above:Performed By: #### CBCA #### [facility] ([facility]) [address] [place] [address] VIRRBC COUNT4.04 X10E12/LLow4.1-5.7[facility] Comment on above:Performed By: #### CBCA #### [facility] ([facility]) [address] [place] [address] VIRWBC (Bld) [#/Vol]10.9 10*3/uLNormal4-11ProDiley Ridge Medical CenterComment on above:Performed By: #### CBCA #### [facility] ([facility]) [address] [place] [address] VIRCNPNon [id number] (HEMTSA) JUAN JOSE AUSTIN ([id number]) 1940 M Date Time Provider Department 04/22/25 GRAEME VAZQUEZ During your visit today, we recorded the following information about you: Shannan Castelan, RN 04/22/2025 9:11 AM Signed Pt scheduled for CT tomorrow. Currently hospitalized at [facility] in [place]. New defibrillator placed- site became reddened and [...] [N1*11/29/2023 Encounter Status:Closed by SHANNAN CASTELAN on 04/22/25NoJ.W. Ruby Memorial HospitalPREHENSIVE METABOLIC PANELon [id number] [Mass/Vol]3.2 g/dL Normal3.2-5.3ProMedLake County Memorial Hospital - West HospitalComment on above:Performed By: #### CBCA #### [facility] ([facility]) [address] [place] [address] VIRALP [Catalytic activity/Vol]48 U/OBussql13-265QfbNbemct [place] HospitalComment on above:Performed By: #### CBCA #### [facility] ([facility]) [address] [place] [address] VIRALT [Catalytic activity/Vol]14 U/LNormal<=40[facility] [place] HospitalComment on above:Performed By: #### CBCA #### [facility] ([facility]) [address] [place] [address] VIRAnion gap [Moles/Vol]9 mmol/LNormal5-15[facility] [place] HospitalComment on above:Performed By: #### CBCA #### [facility] ([facility]) [address] [place] [address] VIRAST [Catalytic activity/Vol]24 U/LNormal<=41[facility] HospitalComment on above:Performed By: #### CBCA #### [facility] ([facility]) [address] [place] [address] VIRBilirubin [Mass/Vol]0.3 mg/dLNormal0.3-1.2ProMedLake County Memorial Hospital - West HospitalComment on above:Performed By: #### CBCA #### [facility] ([facility]) [address] [place] [address] VIRCalcium [Mass/Vol]8.0 mg/dLLow8.5-10.5PTrinity Health SystemComment on above:Performed By: #### CBCA #### [facility] ([facility]) [address] [place] [address] VIRChloride [Moles/Vol]111 mmol/TBepk59-914GxeHjqpwp [place] HospitalComment on above:Performed By: #### CBCA #### [facility] ([facility]) [address] [place] [address] VIRCO2 [Moles/Vol]24 mmol/QYwpwyp00-40RgyCqknro [facility] Comment on above:Performed By: #### CBCA #### [facility] ([facility]) [address] [place] [address] VIRCreatinine [Mass/Vol]1.48 mg/dLHigh0.60-1.30ProDiley Ridge Medical CenterComment on above:Result Comment: METHOD TRACEABLE TO IDMS STANDARD Performed By: #### CBCA #### [facility] ([facility]) [address] [place] [address] VIRGFR/1.73 sq M.predicted among non-blacks MDRD (S/P/Bld) [Vol rate/Area]46 mL/min/{1.73_m2}Low>=60ProDiley Ridge Medical CenterComment on above: Result Comment: Reported eGFR is based on the CKD-EPI 2020 equation that does not use a race coefficient.Performed By: #### CBCA #### [facility] ([facility]) [address] [place] [address] VIRGlucose [Mass/Vol]147 mg/eHUmyq35-29OpmUcckap [place] HospitalComment on above:Performed By: #### CBCA #### [facility] ([facility]) [address] [place] [address] VIRPotassium [Moles/Vol]4.3 mmol/LNormal3.5-5.0Pro[facility] HospitalComment on above:Performed By: #### CBCA #### [facility] ([facility]) [address] [place] [address] VIRProtein [Mass/Vol]4.9 g/dLLow6.0-8.0[facility] [place] HospitalComment on above:Performed By: #### CBCA #### [facility] ([facility]) [address] [place] [address] VIRSodium [Moles/Vol]144 mmol/IBxoufd366-317HvlAacpcr [place] HospitalComment on above:Performed By: #### CBCA #### [facility] ([facility]) [address] [place] [address] VIRUrea nitrogen [Mass/Vol]23 mg/dLNormal5-27[facility] [place] HospitalComment on above:Performed By: #### CBCA #### [facility] ([facility]) [address] [place] [address] VIRIONIZED CALCIUMon 96-88-9193ZNWFRFJ CALCIUM - ICAN4.6 mg/dL Normal4.5-5.3[facility] [place] HospitalComment on above:Performed By: #### CBCA #### [facility] ([facility]) [address] [place] [address] VIRMAGNESIUMon 32-81-2253Uzdsqfiie [Mass/Vol]1.9 mg/dLNormal 1.8-2.6ProM[facility] Hospital HospitalComment on above:Performed By: #### CBCA #### [facility] ([facility]) [address] [place] [address] VIRVANCOMYCIN, RANDOMon 96-50-0406DTGCLAVDUC07.9 ug/mLNormal 5.0-40.0[facility] [place] HospitalComment on above:Order Comment: Peak 30-40 ug/mLTrough 5-20 ug/mlPerformed By: #### CBCA #### [facility] ([facility]) [address] [place] [address] VIRBEDSIDE GLUCOSEon 57-27-1778Ailjdcp [Mass/Vol]160 mg/dLHigh 65-99Pro[facility] HospitalComment on above:Performed By: #### CBCA #### [facility] ([facility]) [address] [place] [address] VIRCBC WITH AUTO DIFFERENTIALon 10-42-3730UMYFLJUGV ABSOLUTE COUNT (10*3/UL) BY AUTOMATED COUNT0.0 10*3/uLNormal0.0-0.2[facility] [place] HospitalComment on above:Performed By: #### WCSUP #### [facility] ([facility]) [address] [place] [address] VIRBASOPHILS RELATIVE PERCENT BY AUTOMATED COUNT0.7 %Normal [facility] HospitalComment on above:Performed By: #### WCSUP #### [facility] ([facility]) [address] [place] [address] VIRCELLAVISION DIFFERENTIAL TYPEAUTOMATED DIFFERENTIALNormal [facility] HospitalComment on above:Performed By: #### WCSUP #### [facility] ([facility]) [address] [place] [address] VIREosinophils (Bld) [#/Vol]0.4 10*3/uLNormal0.0-0.4ProM[facility] HospitalComment on above:Performed By: #### WCSUP #### [facility] ([facility]) [address] [place] [address] VIREOSINOPHILS RELATIVE PERCENT BY AUTOMATED COUNT6.7 %Normal [facility] HospitalComment on above:Performed By: #### WCSUP #### [facility] ([facility]) [address] [place] [address] VIRErythrocyte distribution width (RBC) [Ratio]15.7 %High 11.5-15Pro[facility] HospitalComment on above:Performed By: #### WCSUP #### [facility] ([facility]) [address] [place] [address] VIRHematocrit (Bld) [Volume fraction]36.3 %Pxk72-93RzcYnnuma [place] HospitalComment on above:Performed By: #### WCSUP #### [facility] ([facility]) [address] [place] [address] VIRHemoglobin (Bld) [Mass/Vol]12.6 g/lCEvp36-10MisClxznx [place] HospitalComment on above:Performed By: #### WCSUP #### [facility] ([facility]) [address] [place] [address] VIRLYMPHOCYTES ABSOLUTE COUNT (10*3/UL) BY AUTOMATED COUNT0.6 10*3/uLLow1.0-3.5[facility] [place] HospitalComment on above:Performed By: #### WCSUP #### [facility] ([facility]) [address] [place] [address] VIRLYMPHOCYTES RELATIVE PERCENT BY AUTOMATED COUNT11.3 %Normal [facility] [place] HospitalComment on above:Performed By: #### WCSUP #### [facility] ([facility]) [address] [place] [address] VIRMCH (RBC) [Entitic mass]29.1 fkUkoovx88-12AtoMfeuuj [place] HospitalComment on above:Performed By: #### WCSUP #### [facility] ([facility]) [address] [place] [address] VIRMCHC (RBC) [Mass/Vol]34.7 g/oAQutdex17-00ZrxGcmrut [place] HospitalComment on above:Performed By: #### WCSUP #### [facility] ([facility]) [address] [place] [address] VIRMCV (RBC) [Entitic vol]84 aIFynkht99-247DhlOdnjci Muñiz HospitalComment on above:Performed By: #### WCSUP #### [facility] ([facility]) [address] [place] [address] VIRMONOCYTES ABSOLUTE COUNT (10*3/UL) BY AUTOMATED COUNT0.4 10*3/uLNormal0.0-0.9[facility] HospitalComment on above:Performed By: #### WCSUP #### [facility] ([facility]) [address] [place] [address] VIRMONOCYTES RELATIVE PERCENT BY AUTOMATED COUNT6.3 %Normal [facility] HospitalComment on above:Performed By: #### WCSUP #### [facility] ([facility]) [address] [place] [address] VIRNEUTROPHILS ABSOLUTE COUNT BY AUTOMATED COUNT4.2 10*3/uL Normal1.5-6.6[facility] HospitalComment on above:Performed By: #### WCSUP #### [facility] ([facility]) [address] [place] [address] VIRNEUTROPHILS RELATIVE PERCENT BY AUTOMATED COUNT75.0 %Normal [facility] HospitalComment on above:Performed By: #### WCSUP #### [facility] ([facility]) [address] [place] [address] VIRPlatelet mean volume (Bld) [Entitic vol]7.4 fLNormal7-12 [facility] HospitalComment on above:Performed By: #### WCSUP #### [facility] ([facility]) [address] [place] [address] VIRPlatelets (Bld) [#/Vol]201 10*3/oFVlifal312-782WnpEftdlp [place] HospitalComment on above:Performed By: #### WCSUP #### [facility] ([facility]) [address] [place] [address] VIRRBC COUNT4.34 X10E12/LNormal4.1-5.7[facility] Comment on above:Performed By: #### WCSUP #### [facility] ([facility]) [address] [place] [address] VIRWBC (Bld) [#/Vol]5.6 10*3/uLNormal4-11[facility] HospitalComment on above:Performed By: #### WCSUP #### [facility] ([facility]) [address] [place] [address] VIRCOMPREHENSIVE METABOLIC PANELon 64-90-0444Jkmpkdg [Mass/Vol] 3.5 g/dLNormal3.2-5.3[facility] [place] HospitalComment on above:Performed By: #### WCSUP #### [facility] ([facility]) [address] [place] [address] VIRALP [Catalytic activity/Vol]51 U/VJshjpo42-577MmnPdmhec [facility]ñiz HospitalComment on above:Performed By: #### WCSUP #### [facility] ([facility]) [address] [place] [address] VIRALT [Catalytic activity/Vol]9 U/LNormal<=40[facility] HospitalComment on above:Performed By: #### WCSUP #### [facility] ([facility]) [address] [place] [address] VIRAnion gap [Moles/Vol]6 mmol/LNormal5-15[facility] HospitalComment on above:Performed By: #### WCSUP #### [facility] ([facility]) [address] [place] [address] VIRAST [Catalytic activity/Vol]19 U/LNormal<=41[facility] HospitalComment on above:Performed By: #### WCSUP #### [facility] ([facility]) [address] [place] [address] VIRBilirubin [Mass/Vol]0.5 mg/dLNormal0.3-1.2PTrinity Health SystemComment on above:Performed By: #### WCSUP #### [facility] ([facility]) [address] [place] [address] VIRCalcium [Mass/Vol]8.5 mg/dLNormal8.5-10.5PTrinity Health SystemComment on above:Performed By: #### WCSUP #### [facility] ([facility]) [address] [place] [address] VIRChloride [Moles/Vol]110 mmol/XUbll35-283LurMchlzlDiley Ridge Medical CenterComment on above:Performed By: #### WCSUP #### [facility] ([facility]) [address] [place] [address] VIRCO2 [Moles/Vol]28 mmol/GVhltdn44-40HvsZlkarq [facility] Comment on above:Performed By: #### WCSUP #### [facility] ([facility]) [address] [place] [address] VIRCreatinine [Mass/Vol]1.43 mg/dLHigh0.60-1.30ProDiley Ridge Medical CenterComment on above:Result Comment: METHOD TRACEABLE TO IDMS STANDARD Performed By: #### WCSUP #### [facility] ([facility]) [address] [place] [address] VIRGFR/1.73 sq M.predicted among non-blacks MDRD (S/P/Bld) [Vol rate/Area]48 mL/min/{1.73_m2}Low>=60ProDiley Ridge Medical CenterComment on above: Result Comment: Reported eGFR is based on the CKD-EPI 2020 equation that does not use a race coefficient.Performed By: #### WCSUP #### [facility] ([facility]) [address] [place] [address] VIRGlucose [Mass/Vol]104 mg/lIJrvi48-90LbwSojwjs Muñiz HospitalComment on above:Performed By: #### WCSUP #### [facility] ([facility]) [address] [place] [address] VIRPotassium [Moles/Vol]4.0 mmol/LNormal3.5-5.0[facility] HospitalComment on above:Performed By: #### WCSUP #### [facility] ([facility]) [address] [place] [address] VIRProtein [Mass/Vol]5.3 g/dLLow6.0-8.0[facility] HospitalComment on above:Performed By: #### WCSUP #### [facility] ([facility]) [address] [place] [address] VIRSodium [Moles/Vol]144 mmol/ZRqvtzq513-543ApiVloxnl [facility]ñiz HospitalComment on above:Performed By: #### WCSUP #### [facility] ([facility]) [address] [place] [address] VIRUrea nitrogen [Mass/Vol]22 mg/dLNormal5-27[facility] HospitalComment on above:Performed By: #### WCSUP #### [facility] ([facility]) [address] [place] [address] VIRMAGNESIUMon 60-97-9339Xwgnnsgcl [Mass/Vol]2.0 mg/dLNormal 1.8-2.6Pro[facility] HospitalComment on above:Performed By: #### WCSUP #### [facility] ([facility]) [address] [place] [address] VIRREPEATED ABORHon 59-67-4440NGE_LUGDIDKoeyitYdpPpeogn Muñiz HospitalComment on above:Performed By: #### WCSUP #### [facility] ([facility]) [address] [place] [address] VIRRH_INTEPPositiveNormalProMedica Muñiz HospitalComment on above:Performed By: #### WCSUP #### [facility] ([facility]) [address] [place] [address] VIRTYPE AND SCREENon 15-61-9483LJM_TICRQCLptctaReqBfeuec [place] HospitalComment on above:Performed By: #### WCSUP #### [facility] ([facility]) [address] [place] [address] VIRRH_INTEPPositiveNormalProMedica [place] HospitalComment on above:Performed By: #### WCSUP #### [facility] ([facility]) [address] [place] [address] VIRVANCOMYCIN, RANDOMon 47-54-3185VCBPXODOEO79.5 ug/mLNormal 5.0-40.0[facility] [place] HospitalComment on above:Order Comment: Along with Rare Normal Skin [place].Performed By: #### WCSUP #### [facility] ([facility]) [address] [place] [address] VIRWOUND CULTURE SURGICAL DEEP INCLUDES GRAM STAINon 04-21-2025 WOUND CULTURE SURGICAL DEEP INCLUDES GRAM STAINCULTURE RESULTS NO GROWTH 2 DAYS GRAM STAIN 10 to 24 White Blood Cells/LPF 0 Squamous Epithelial Cells/LPF No organisms seenNoalPomerene HospitalComascension genesys hospital on above:Order Comment: Pre-op diagnosis:pocket errosion, chbPerformed By: #### CBCA #### [facility] ([facility]) [address] [place] [address] VIRWOUND CULTURE SURGICAL DEEP INCLUDES GRAM STAINCULTURE [...] F Cefazolin S F Susceptibility Comment FNormalProMedica Promedica [facility]ostoria Community HospitalComment on above:Order Comment: Pre-op diagnosis:pocket errosion, chbPerformed By: #### CBCA #### [facility] ([facility]) [address] [place] [address] VIRWOUND CULTURE SURGICAL DEEP INCLUDES GRAM STAINCULTURE [...] F Vancomycin S <=^0.5 F Susceptibility Comment FNormalProDiley Ridge Medical CenterComment on above:Order Comment: Pre-op diagnosis:pocket errosion, chbPerformed By: #### CBCA #### [facility] ([facility]) [address] [place] [address] VIRXR CHEST 1 VWon [id number] CHEST 1 VWXR CHEST 1 VW Single [...] by Lio Licea MD on 04/21/2025 9:14 PMNormalProDiley Ridge Medical CenterBLOOD CULTUREon [id number] identified Cx Nom (Bld)CULTURE RESULTS NO GROWTH 5 DAYSNormalPomerene HospitalComment on above:Order Comment: Along with Rare Normal Skin [place].Performed By: #### WCSUP #### [facility] ([facility]) [address] [place] [address] VIRCBC WITH AUTO DIFFERENTIALon [id number] ABSOLUTE COUNT (10*3/UL) BY AUTOMATED COUNT0.1 10*3/uLNormal0.0-0.2ProMedica [facility]ost[facility] Community HospitalComment on above:Performed By: #### CBCA #### [facility] ([facility]) [address] [place] [address] VIRBASOPHILS RELATIVE PERCENT BY AUTOMATED COUNT1.1 %Normal Pomerene HospitalComment on above:Performed By: #### CBCA #### [facility] ([facility]) [address] [place] [address] VIRCELLAVISION DIFFERENTIAL TYPEAUTOMATED DIFFERENTIALNormal Pomerene HospitalComment on above:Performed By: #### CBCA #### [facility] ([facility]) [address] [place] [address] VIREosinophils (Bld) [#/Vol]0.2 10*3/uLNormal0.0-0.4ProMedica Muñiz HospitalComment on above:Performed By: #### CBCA #### [facility] ([facility]) [address] [place] [address] VIREOSINOPHILS RELATIVE PERCENT BY AUTOMATED COUNT4.5 %Normal [facility] HospitalComment on above:Performed By: #### CBCA #### [facility] ([facility]) [address] [place] [address] VIRErythrocyte distribution width (RBC) [Ratio]15.6 %High 11.5-15ProMedica Muñiz HospitalComment on above:Performed By: #### CBCA #### [facility] ([facility]) [address] [place] [address] VIRHematocrit (Bld) [Volume fraction]37.1 %Ddt53-20OvpVlkzbv Muñiz HospitalComment on above:Performed By: #### CBCA #### [facility] ([facility]) [address] [place] [address] VIRHemoglobin (Bld) [Mass/Vol]12.9 g/sOQua07-70ZxgZxfnum New Providence HospitalComment on above:Performed By: #### CBCA #### [facility] ([facility]) [address] [place] [address] VIRLYMPHOCYTES ABSOLUTE COUNT (10*3/UL) BY AUTOMATED COUNT0.7 10*3/uLLow1.0-3.5ProMedica Muñiz HospitalComment on above:Performed By: #### CBCA #### [facility] ([facility]) [address] [place] [address] VIRLYMPHOCYTES RELATIVE PERCENT BY AUTOMATED COUNT14.7 %Normal [facility] HospitalComment on above:Performed By: #### CBCA #### [facility] ([facility]) [address] [place] [address] VIRMCH (RBC) [Entitic mass]29.1 fuVmcetu42-32ZklVoheyl Muñiz HospitalComment on above:Performed By: #### CBCA #### [facility] ([facility]) [address] [place] [address] VIRMCHC (RBC) [Mass/Vol]34.8 g/sEIqdlmn61-69DwrVtbqrh Muñiz HospitalComment on above:Performed By: #### CBCA #### [facility] ([facility]) [address] [place] [address] VIRMCV (RBC) [Entitic vol]84 iKApcied15-251NmpGiaewp Muñiz HospitalComment on above:Performed By: #### CBCA #### [facility] ([facility]) [address] [place] [address] VIRMONOCYTES ABSOLUTE COUNT (10*3/UL) BY AUTOMATED COUNT0.3 10*3/uLNormal0.0-0.9ProSelect [facility]-Fairhillca [facility] HospitalComment on above:Performed By: #### CBCA #### [facility] ([facility]) [address] [place] [address] VIRMONOCYTES RELATIVE PERCENT BY AUTOMATED COUNT7.0 %Normal [facility] HospitalComment on above:Performed By: #### CBCA #### [facility] ([facility]) [address] [place] [address] VIRNEUTROPHILS ABSOLUTE COUNT BY AUTOMATED COUNT3.5 10*3/uL Normal1.5-6.6ProMedica Muñiz HospitalComment on above:Performed By: #### CBCA #### [facility] ([facility]) [address] [place] [address] VIRNEUTROPHILS RELATIVE PERCENT BY AUTOMATED COUNT72.7 %Normal [facility] HospitalComment on above:Performed By: #### CBCA #### [facility] ([facility]) [address] [place] [address] VIRPlatelet mean volume (Bld) [Entitic vol]7.3 fLNormal7-12 [facility] HospitalComment on above:Performed By: #### CBCA #### [facility] ([facility]) [address] [place] [address] VIRPlatelets (Bld) [#/Vol]205 10*3/kOGkaxkw847-129VgtHsnecg [facility] HospitalComment on above:Performed By: #### CBCA #### [facility] ([facility]) [address] [place] [address] VIRRBC COUNT4.44 X10E12/LNormal4.1-5.7ProSelect [facility] on above:Performed By: #### CBCA #### [facility] ([facility]) [address] [place] [address] VIRWBC (Bld) [#/Vol]4.8 10*3/uLNormal4-11[facility] HospitalComment on above:Performed By: #### CBCA #### [facility] ([facility]) [address] [place] [address] VIRCOMPREHENSIVE METABOLIC PANELon 02-28-0505Zgimbnu [Mass/Vol] 3.5 g/dLNormal3.2-5.3Pro[facility] HospitalComment on above:Performed By: #### CMP #### [facility] ([facility]) [address] [place] [address] VIRALP [Catalytic activity/Vol]55 U/CSojaeh74-654ZnyOgoodi [facility] HospitalComment on above:Performed By: #### CMP #### [facility] ([facility]) [address] [place] [address] VIRALT [Catalytic activity/Vol]10 U/LNormal<=40ProMedica Muñiz HospitalComment on above:Performed By: #### CMP #### [facility] ([facility]) [address] [place], [place] [address] VIRAnion gap [Moles/Vol]8 mmol/LNormal5-15ProMedica Muñiz HospitalComment on above:Performed By: #### CMP #### [facility] ([facility]) [address] [place] [address] VIRAST [Catalytic activity/Vol]23 U/LNormal<=41ProMedica Muñiz HospitalComment on above:Performed By: #### CMP #### [facility] ([facility]) [address] [place] [address] VIRBilirubin [Mass/Vol]0.3 mg/dLNormal0.3-1.2ProMedica Muñiz HospitalComment on above:Performed By: #### CMP #### [facility] ([facility]) [address] [place] [address] VIRCalcium [Mass/Vol]8.3 mg/dLLow8.5-10.5ProMedica Muñiz HospitalComment on above:Performed By: #### CMP #### [facility] ([facility]) [address] [place] [address] VIRChloride [Moles/Vol]110 mmol/CAdss37-755SsgLdariv Muñiz HospitalComment on above:Performed By: #### CMP #### [facility] ([facility]) [address] [place] [address] VIRCO2 [Moles/Vol]25 mmol/SZzpeau12-22LgvEbukks [facility] Comment on above:Performed By: #### CMP #### [facility] ([facility]) [address] [place] [address] VIRCreatinine [Mass/Vol]1.58 mg/dLHigh0.60-1.30ProMedica Muñiz HospitalComment on above:Result Comment: METHOD TRACEABLE TO IDMS STANDARD Performed By: #### CMP #### [facility] ([facility]) [address] [place] [address] VIRGFR/1.73 sq M.predicted among non-blacks MDRD (S/P/Bld) [Vol rate/Area]43 mL/min/{1.73_m2}Low>=60ProSelect [facility] Special[facility] Hospital [facility]-Fairhillca [facility] HospitalComment on above: Result Comment: Reported eGFR is based on the CKD-EPI 2020 equation that does not use a race coefficient.Performed By: #### CMP #### [facility] ([facility]) [address] [place] [address] VIRGlucose [Mass/Vol]93 mg/pASczfqo28-19LqjDezfjn [place] HospitalComment on above:Performed By: #### CMP #### [facility] ([facility]) [address] [place] [address] VIRPotassium [Moles/Vol]3.4 mmol/LLow3.5-5.0ProMidd[facility] Hospital HospitalComment on above:Performed By: #### CMP #### [facility] ([facility]) [address] [place] [address] VIRProtein [Mass/Vol]5.7 g/dLLow6.0-8.0ProM[facility] Hospital HospitalComment on above:Performed By: #### CMP #### [facility] ([facility]) [address] [place] [address] VIRSodium [Moles/Vol]143 mmol/OGkawdv350-469RxlDfzclm [place] HospitalComment on above:Performed By: #### CMP #### [facility] ([facility]) [address] [place] [address] VIRUrea nitrogen [Mass/Vol]25 mg/dLNormal5-27ProM[facility] Hospital HospitalComment on above:Performed By: #### CMP #### [facility] ([facility]) [address] [place] [address] VIRLACTATE W/ REFLEXon 71-12-5560NLCIDHV W/REFLEX0.9 mmol/L Normal0.4-2.0ProDiley Ridge Medical CenterComment on above:Order Comment: Result did not trigger repeat Lactate, re-order if needed.Performed By: #### LACTS #### [facility] ([facility]) [address] [place] [address] VIRMAGNESIUMon 71-02-3165Kvqxnrbzq [Mass/Vol]2.1 mg/dLNormal 1.8-2.6ProDiley Ridge Medical CenterComment on above:Performed By: #### MG #### [facility] ([facility]) [address] [place] [address] VIRPOTASSIUMon 61-81-1339Akbpqhbid [Moles/Vol]4.0 mmol/LNormal 3.5-5.0ProDiley Ridge Medical CenterComment on above:Performed By: #### K #### [facility] ([facility]) [address] [place] [address] VIRPROCALCITONINon 96-39-7811WYXAYQTZJUSCG<^0.05Normal<0.05 [facility] HospitalComment on above:Order Comment: <0.50 ng/mL - Low risk of severe sepsis and/or septic shock. <2.00 ng/mL - Recommend retesting within 6-24 hours. >2.00 ng/mL - High risk of sepsis and/or septic shock.Performed By: #### PCAL #### [facility] ([facility]) [address] [place] [address] VIRPROCALCITONIN<^0.05Normal<0.05ProM[facility] Hospital Comment on above:Order Comment: <0.50 ng/mL - Low risk of severe sepsis and/or septic shock. <2.00 ng/mL - Recommend retesting within 6-24 hours. >2.00 ng/mL - High risk of sepsis and/or septic shock.Performed By: #### PCAL #### [facility] ([facility]) [address] [place] [address] VIRURINALYSISon 27-05-9653Emlukgofu Ql (U)NegativeNormal NegativeProMedica New Providence HospitalComment on above:Performed By: #### UA #### [facility] ([facility]) [address] [place] [address] VIRBLOOD/HGBNegativeNormalNegativeProMedica [facility] on above:Performed By: #### UA #### [facility] ([facility]) [address] [place] [address] VIRColor (U)YellowNormalYellow, ColorlessProMedica New Providence HospitalComment on above:Performed By: #### UA #### [facility] ([facility]) [address] [place] [address] VIRGlucose Ql (U)NegativeNormalNegativeProMedica New Providence HospitalComment on above:Performed By: #### UA #### [facility] ([facility]) [address] [place] [address] VIRKetones Ql (U)NegativeNormalNegativeProMedica New Providence HospitalComment on above:Performed By: #### UA #### [facility] ([facility]) [address] [place] [address] VIRLeukocyte esterase Test strip Ql (U)SmallAbnormalNegative [facility] HospitalComment on above:Performed By: #### UA #### [facility] ([facility]) [address] [place] [address] VIRMUCOUSPresentAbnormalNoneProMedica New Providence HospitalComment on above:Performed By: #### UA #### [facility] ([facility]) [address] [place] [address] VIRNitrite Ql (U)NegativeNormalNegativeProMedica New Providence HospitalComment on above:Performed By: #### UA #### [facility] ([facility]) [address] [place] [address] VIRPH,URINE6.2Dvoyif0.0-8.5[facility] HospitalComment on above:Performed By: #### UA #### [facility] ([facility]) [address] [place] [address] VIRProtein Ql (U)NegativeNormalNegativeProMedica New Providence HospitalComment on above:Performed By: #### UA #### [facility] ([facility]) [address] [place] [address] VIRR.B.XSUJT0Uiylni2-5KanKpjcmi [place] HospitalComment on above:Performed By: #### UA #### [facility] ([facility]) [address] [place] [address] VIRSpecific gravity (U) [Rel density]1.894Xxoidr6.003-1.035 [facility] HospitalComment on above:Performed By: #### UA #### [facility] ([facility]) [address] [place] [address] VIRSQUAMOUS EPITHELIUM<^0Eoryzk9-0GbqAtdibn [facility] Comment on above:Performed By: #### UA #### [facility] ([facility]) [address] [place] [address] VIRTURBIDITYClearNormalClearProMedica New Providence HospitalComment on above:Performed By: #### UA #### [facility] ([facility]) [address] [place] [address] VIRUROBILINOGEN<1.1 eu/dLNormal<1.1 eu/dLProMedica New Providence HospitalComment on above:Performed By: #### UA #### [facility] ([facility]) [address] [place] [address] VIRW.B.IJJIY80Epqu8-3IdgCfcfnh [facility] HospitalComment on above: Performed By: #### UA #### [facility] ([facility]) [address] [place] [address] VIRURINE CULTUREon [id number] identified Cx Nom (U) CULTURE RESULTS NO GROWTH AT <1000 CFU/mLNormalProDiley Ridge Medical CenterComment on above: Performed By: #### WCSUP #### [facility] ([facility]) [address] [place] [address] VIRVANCOMYCIN, RANDOMon 02-14-9654XWBHTTGGKV97.3 ug/mLNormal 5.0-40.0ProDiley Ridge Medical CenterComment on above:Order Comment: Along with Rare Normal Skin [place].Performed By: #### MUNIRP #### [facility] ([facility]) [address] [place] [address] VIRBLOOD CULTUREon 69-05-9275Ofzkypcm identified Cx Nom (Bld)No growth at 5 daysNormalUniversKettering Health PrebleComment on above:Order Comment: Prior to antibiotic administrationPerformed By: #### [id number] #### [facility] ([facility]) [address] [place], [place] [address]PPO WITH AUTO DIFFERENTIALon 87-88-6078Newlihmyf (Bld) [#/Vol] 0.05 10*3/uLNormal0.00-0.20UnNationwide Children's HospitalComment on above: Performed By: #### [id number] ####[facility] ([facility])[address] [place], [place] [address]Ridwhukab/100 WBC (Bld)1.1 %High0.0-1.0UnNationwide Children's HospitalComment on above:Performed By: #### [id number] ####[facility] ([facility])[address] [place], [place] [address]Yqnywgqlwdp (Bld) [#/Vol]0.17 10*3/uL Normal0.00-0.50UnNationwide Children's HospitalComment on above:Performed By: #### [id number] ####[facility] ([facility])[address] [place] [address] Eosinophils/100 WBC (Bld)3.9 %Normal0.0-6.0UnNationwide Children's Hospital Comment on above:Performed By: #### [id number] ####[facility] ([facility])[address] [place], [place] [address]Twcdkayhbeo distribution width (RBC) [Ratio]15.2 % High11.5-15.0UnNationwide Children's HospitalComment on above:Performed By: #### [id number] ####[facility] ([facility])[address] [place] [address] ERYTHROCYTE MEAN CORPUSCULAR HEMOGLOBIN CONCENTRATION (G/DL) BY MZJCRFJFA71.5 g/mLFiwulb60.0-35.0UnNationwide Children's HospitalComment on above:Performed By: #### [id number] ####[facility] ([facility])[address] [place], [place] [address]Lyotuqvitm (Bld) [Volume fraction]34.0 %Low39.0-50.0UnNationwide Children's HospitalComment on above:Performed By: #### [id number] ####[facility] ([facility])[address] [place], [place] [address]Unzxlywwhh (Bld) [Mass/Vol]11.4 g/dL Low13.0-17.0UnNationwide Children's HospitalComment on above:Performed By: #### [id number] ####[facility] ([facility])[address] [place] [address] Immature granulocytes (Bld) [#/Vol]0.01 10*3/uLNormal0.00-0.20UnNationwide Children's HospitalComment on above:Performed By: #### [id number] ####[facility] ([facility])[address] [place], [place] [address]Bfqvopys granulocytes/100 WBC (Bld)0.2 %Normal0.0-1.0UnNationwide Children's HospitalComment on above: Performed By: #### [id number] ####[facility] ([facility])[address] [place], [place] [address]Zljfdjxeoei (Bld) [#/Vol]0.69 10*3/uLLow1.20-4.00UnNationwide Children's HospitalComment on above:Performed By: #### [id number] ####[facility] ([facility])[address] [place], [place] [address]Towdbvtwaeh/100 WBC (Bld) 15.7 %Low20.0-45.0UnNationwide Children's HospitalComment on above:Performed By: #### [id number] ####[facility] ([facility])[address] [place], [place] [address]NQU (RBC) [Entitic mass]29.2 nlVvhrdg70.0-33.0UnNationwide Children's HospitalComment on above:Performed By: #### [id number] ####[facility] ([facility])[address] [place], [place] [address]ADF (RBC) [Entitic vol]87.2 fLNormal 82.0-98.0UnNationwide Children's HospitalComment on above:Performed By: #### [id number] ####[facility] ([facility])[address] [place] [address] Monocytes (Bld) [#/Vol]0.42 10*3/uLNormal0.10-1.00UnNationwide Children's HospitalComment on above:Performed By: #### [id number] ####[facility] ([facility])[address] [facility], [place] [address]Snajbtkqz/100 WBC (Bld)9.5 %Normal 5.0-12.0UnNationwide Children's HospitalComment on above:Performed By: #### [id number] ####[facility] ([facility])[address] [facility] [place] [address] Neutrophils (Bld) [#/Vol]3.06 10*3/uLNormal1.60-7.60UnNationwide Children's HospitalComment on above:Performed By: #### [id number] ####[facility] ([facility])[address] [place] [address]Uydzczpfoag/100 WBC (Bld)69.6 %Normal 40.0-72.0UnNationwide Children's HospitalComment on above:Performed By: #### [id number] ####[facility] ([facility])[address] [place] [address]IIUB (PER 100 WBCS) BY AUTOMATED COUNT0.0 %Xodsnb1JdqdektyckNationwide Children's Hospital Comment on above:Performed By: #### [id number] ####[facility] ([facility])[address] [place] [address]TKFBQUFYN (10*3/UL) IN BLOOD AUTOMATED ETSHN476 10*3/wETjrdlx354-822WgkqqggxprNationwide Children's HospitalComment on above: Performed By: #### [id number] ####[facility] ([facility])[address] [place] [address]OIJ (Bld) [#/Vol]3.90 10*6/uLLow4.20-5.70UnNationwide Children's HospitalComment on above:Performed By: #### [id number] ####[facility] ([facility])[address] [place], [place] [address]JIK (Bld) [#/Vol]4.40 10*3/uLNormal 4.00-10.60UnNationwide Children's HospitalComment on above:Performed By: #### [id number] ####[facility] ([facility])[address] [place] [address] COMPREHENSIVE METABOLIC PANELon 11-03-7847Ccjoktu [Mass/Vol]3.5 g/dLNormal 3.5-5.7UnNationwide Children's HospitalComment on above:Performed By: #### [id number] #### [facility] ([facility]) [address] [place] [address]IDZ [Catalytic activity/Vol]54 U/UGpzgxp25-604QatxrypnhsNationwide Children's HospitalComment on above:Performed By: #### [id number] #### [facility] ([facility]) [address] [place], [place] [address]BRT [Catalytic activity/Vol]16 U/LNormal7-52UnNationwide Children's HospitalComment on above:Performed By: #### [id number] #### [facility] ([facility]) [address] [place], [place] [address]Iqxjt gap [Moles/Vol]10 mmol/LNormal7-20UnNationwide Children's HospitalComment on above:Performed By: #### [id number] #### [facility] ([facility]) [address] [place], [place] [address]DQY [Catalytic activity/Vol]25 U/TVkdfby86-00JstnoyscbjNationwide Children's HospitalComment on above:Performed By: #### [id number] #### [facility] ([facility]) [address] [place], [place] [address]Ynbweocqt [Mass/Vol]0.5 mg/dLNormal0.3-1.0UnNationwide Children's HospitalComment on above:Performed By: #### [id number] #### [facility] ([facility]) [address] [place], [place] [address]Aqvtumy [Mass/Vol]8.2 mg/dLLow8.6-10.3UnNationwide Children's HospitalComment on above:Performed By: #### [id number] #### [facility] ([facility]) [address] [place], [place] [address]Hvdncmtz [Moles/Vol]107 mmol/TRsgzko23-020WqgwmafewxNationwide Children's HospitalComment on above:Performed By: #### [id number] #### [facility] ([facility]) [address] [place], [place] [address]VP6 [Moles/Vol]26 mmol/BZdatvo20-63KareqcakleNationwide Children's HospitalComment on above:Performed By: #### [id number] #### [facility] ([facility]) [address] [place], [place] [address]Hhncdoghsl [Mass/Vol]1.85 mg/dLHigh0.70-1.30UnNationwide Children's HospitalComment on above:Performed By: #### [id number] #### [facility] ([facility]) [address] [place], [place] [address]RUIFRGIUVM FILTRATION RATE ML/MIN/1.73 SQ M.QZUOZPYIG77.3 mL/min/1.73m*2Low>60.0UnNationwide Children's HospitalComment on above:Result Comment: The [place]???s estimated glomerular filtration rate (eGFR) will no [...] group of individuals.Performed By: #### [id number] #### [facility] ([facility]) [address] [place], [place] [address]Nelldqg [Mass/Vol]113 mg/tWTilx21-351YxoskpccaoNationwide Children's HospitalComment on above:Performed By: #### [id number] #### [facility] ([facility]) [address] [place], [place] [address]Bfabfaoio [Moles/Vol]3.6 mmol/LNormal3.5-5.1UnNationwide Children's HospitalComment on above:Performed By: #### [id number] #### [facility] ([facility]) [address] [place], [place] [address]Xqakfnt [Mass/Vol]5.7 g/dLLow6.0-8.3UnNationwide Children's HospitalComment on above:Performed By: #### [id number] #### [facility] ([facility]) [address] [place], [place] [address]Vvomwa [Moles/Vol]139 mmol/KJszbmd603-100FthqekiptjNationwide Children's HospitalComment on above:Performed By: #### [id number] #### [facility] ([facility]) [address] [place], [place] [address]Xrrw nitrogen [Mass/Vol]33 mg/dLHigh7-25UnNationwide Children's HospitalComment on above:Performed By: #### [id number] #### [facility] ([place]) [address] [place], [place] [address]SNJH NITROGEN/CREATININE (MASS RATIO) IN SER/PLAS17.8Normal CentervilleComment on above:Performed By: #### [id number] #### [facility] ([place]) [address] [place], [place] [address]VHQNAUCrw 70-20-1487QOQHYMO Attestation signed by Olive Bautista MD at [...] I have recommended pt be transferred to [facility] Dr Mccoy who [...] mg, oral, Every morning glucosamine/chondroitin weber A/C (NRAMORIWQMP-FAJQZXNJVXZ-XRL C ORAL) 1 capsule, oral, Daily hydrALAZINE [...] Physical Exam Vitals reviewe (more content not included)...[facility] [id number] contacted pt in regard to shoes that were left in dept. Pt aware and will see if daughter can last picker for him. Belongings placed back in lockers. Mariella Henson RN 05/29/25 1412NormalUniversSt. Vincent Hospital CenterEDNURSMode of arrival (squad #, walk in, police, etc): Walk in Chief complaint(s): Pacemaker issue Arrival Note (brief scenario, treatment SEX THERAPIST, etc): Finished antibiotics last week and then noticed drainage from the pacemaker area. The area is red and warm to the touch. Stated that it looks like it is pushing out of his skin. Has had the pacemaker for 2 years and recently had this problem a couple months ago. NormalUnSumma Health 19-11-4940BQGPKELjzxmvq of Present Illness Chief Complaint Patient presents [...] denies any fever. History provided by: Patient [place] Coma Scale Score: 15 History Medical History[1] [...] they are not able to do at [facility] today he spoke with Dr. Car over at [facility] who agreed to do it today. On re-evaluation, patient is resting comfortably. Results were discussed. Based on the diagnostic results and physical exam, [facility] agreed [facility] [...] signing this emergency patient record, the Emergency Physician/WASTE DISPOSAL ATTENDANT/PA-C attests that all entries made into the electronic medical record by the scribe prior to the Physician/WASTE DISPOSAL ATTENDANT/PA-C signature reflect an accurate accounting of the evaluation and care rendered by that Emergency Physician/WASTE DISPOSAL ATTENDANT/PA-C. The Emergency Physician/WASTE DISPOSAL ATTENDANT/PA-C assumes full responsibility for those entries. The Emergency Physician/WASTE DISPOSAL ATTENDANT/PA-C also attests that any patient testing or [...] Alcohol use: Not Currently ??? Drug use: NeverNormalUniversKettering Health PrebleHIGH SENSITIVITY TROPONIN Ion 61-69-1820KG TROPONIN I (NG/L)71 ng/LCritically high<20UnNationwide Children's HospitalComment on above:Performed By: #### [id number] ####[facility] (BEAKER)[address] [place], [place] [address]UFBMYV ACID WITH 4 HOUR REFLEXon 25-29-1893MKGXGRP (MMOL/L) IN SER/PLAS0.9 mmol/LNormal0.5-2.2UnNationwide Children's HospitalComment on above:Performed By: #### [id number] #### [facility] (BEAKER) [address] [place], [place] [address]WLQAOXCBLGT WOUND CULTUREon 65-25-9543OMGSVYMMSHI WOUND CULTURE CULTURE RESULTS STAPHYLOCOCCUS AUREUS Few [...] <=^0.5 F Cefazolin S F Susceptibility Comment FNormalPomerene HospitalComment on above:Order Comment: Along with Rare Normal Skin [place].Performed By: #### WCSUP #### [facility] (TT) [address] [place] [address] VIRXR CHEST 2 VWSon 18-04-7432YB CHEST 2 VWSXR CHEST 2 VWS Chest 2 views History: chest wall tenderness Comparison: 03/26/2023 Findings: Chest 2 views. Stable cardiac mediastinal silhouette. 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 Degenerative change ofthe thoracolumbar spine. Impression: No evident acute cardiopulmonary process. Finalized by Lio Licea MD on 04/19/2025 5:19 PMNormalPomerene HospitalOffice Visiton [id number]-up [id number] Juan Jose Austin 1940 M Date Provider Department Center 02/23/2025 OLIVE ROBERTSON Family History Problem Relation Age of Onset Heart failure Mother Lung cancer Father Family Status - Relation Status Age at Mother Father Level of Service:17245 [place] OFFICE/OUTPATIENT ESTABLISHED LOW MDM 20 [facility] Visiton [id number]-up visit [id number] Juan Jose Austin 1940 M Date Provider Department Center 02/17/2025 JESSICA ALEJANDRO Hos Family History Problem Relation Age of Onset Heart failure Mother Lung cancer Father Family Status - Relation Status Age at Mother Father Level of Service:86936 RI OFFICE/OUTPATIENT ESTABLISHED LOW MDM 20 [facility] Visiton [id number]-up visit [id number] Juan Jose Austin 1940 M Date Provider Department Center 02/02/2025 OLIVE ROBERTSON Family History Problem Relation Age of Onset Heart failure Mother Lung cancer Father Family Status - Relation Status Age at Mother Father Level of Service:69988 [place] OFFICE/OUTPATIENT ESTABLISHED LOW MDM 20 MINNoFirelands Regional Medical Center South CampusTISSUE CULTUREon 24-63-2564Xsgczdvj identified Cx Nom (Unsp spec)STAPHYLOCOCCUS AUREUSAbnormalUniOhioHealth Doctors HospitalComascension genesys hospital on above:Result Comment: Rare Growth Staphylococcus aureus For Susceptibility Results Please Refer to By: #### [id number] ####[facility] ([facility])[address] [facility] [place], [place] [address]CAQH STAIN RESULTNormalUniversKettering Health PrebleComment on above:Result Comment: Rare Polymorphonuclear leukocytes No organisms seenPerformed By: #### [id number] ####[facility] ([facility])[address] [facility] [place] [place], [place] [address]XABOA CULTUREon 13-02-0566Odbfqcdpnjz [Susc]<=0.5 ResistantUnNationwide Children's HospitalComment on above:Performed By: #### [id number] #### [facility] ([facility]) [address] [facility] [place] [address]Zscmrbuas [Susc]<=0.25SusceptibleUnNationwide Children's HospitalComment on above:Performed By: #### [id number] #### [facility] ([facility]) [address] [facility] [place], [place] [address]Fxgarnzjqvqz [Susc]<=0.5SusceptibleUnNationwide Children's HospitalComment on above:Performed By: #### [id number] #### [facility] ([facility]) [address] [facility] [place] [address]Xhfpparvooht+Sulfamethoxazole [Susc]<=0.5/9.5Susceptible CentervilleComment on above:Performed By: #### [id number] #### [facility] ([facility]) [address] [place], [place] [address]Kcdtedlllk [Susc]2 ug/mlSusceptibleUnNationwide Children's HospitalComment on above:Performed By: #### [id number] #### [facility] (BEAKER) [address] [place] [address]VPgf 40-50-2496XTTR Electrophysiology Consult Note Reason for visit: S/P [...] moderate, relieved by rest. He was evaluated [facility] ED and his CBC, BMP, BNP, [...] artifact is not c (more content not included)...NormalCentervilleNURSNOTEon 01-21-2025 NURSNOTERN educated pt on d/c instructions. [...] wheeled off of unit with all of belongings.NormalCentervilleNURSNOTECHG wipes and betadine nasal swabs completed.Normal CentervilleBasic Metabolic Panelon 29-58-5401Lvhor gap [Moles/Vol]9 mmol/L9 - 16 mmol/LBon Secours Spring[facility] School HealthCalcium [Mass/Vol]8.9 mg/dL8.6 - 10.4 mg/dLBon Secours [facility] School HealthChloride [Moles/Vol]106 mmol/L98 - 107 mmol/LBon Secours [facility] HealthCO2 [Moles/Vol]26 mmol/L20 - 31 mmol/LBon SecAFARCreatinine [Mass/Vol]2.0 mg/dLHigh0.70 - 1.20 mg/dLBon Secours [facility] School HealthEst, Glomelvin Filt Goyh10Goy- PINFBon SecAFAR Comment on above: These results are not [...] secretion. Glucose [Mass/Vol]88 mg/dL74 - 99 mg/dLBon Bluffton HospitalInterpretation and review of laboratory resultsAbnormalHealthsouth Medical CenterPotassium [Moles/Vol]4.5 mmol/L3.7 - 5.3 mmol/LBon Bluffton HospitalSodium [Moles/Vol] 141 mmol/L136 - 145 mmol/LBon [facility]uffton HospitalUrea nitrogen [Mass/Vol]31 mg/dLHigh8 - 23 mg/dLBon [facility]uffton HospitalUrea nitrogen/Creatinine [Mass ratio]16 mg/mg9 - 20Bon [facility] Medical CenterBasic Metabolic Profon 42-42-9072Duheo gap [Moles/Vol]9 mmol/LNormal9-16[facility] Joseph Warren HospitalComment on above:Performed By: #### TIP, BMP #### [address] [place] [address] Bilingual Social Worker: Augusto Sidhu MDBUN/CRE Cowpp37Uduoiq3-30Puqxo [facility] Comment on above:Performed By: #### TIP, BMP #### [address] [place] [address] Bilingual Social Worker: SHEREE Olivasalcium [Mass/Vol]8.9 mg/dLNormal8.6-10.4[facility] Joseph Warren HospitalComment on above:Performed By: #### TIP, BMP #### [address] [place] [address] Bilingual Social Worker: Augusto Sidhu MDChloride [Moles/Vol]106 mmol/XKetchp17-909IdczjMercy Health St. Joseph Warren HospitalComment on above:Performed By: #### CDP, BMP #### [address] [place] [address] Bilingual Social Worker: SHEREE OlivasO2 [Moles/Vol]26 mmol/SVdcnud77-43JogukMercy Health St. Joseph Warren HospitalComment on above:Performed By: #### TIP, BMP #### [address] [place] [address] Bilingual Social Worker: SHEREE Olivasreatinine [Mass/Vol]2.0 mg/dLHigh0.70-1.20[facility] Warren HospitalComment on above:Performed By: #### TIP, BMP #### [address] [place] [address] Bilingual Social Worker: Augusto Sidhu MDGFR/1.73 sq M.predicted among non-blacks MDRD (S/P/Bld) [Vol rate/Area]33 mL/min/{1.73_m2}Low>60[facility]. Joseph Warren HospitalComment on above:Result Comment: These results are [...] tubular secretion.Performed By: #### TIP, BMP #### [address] [place] [address] Bilingual Social Worker: Augusto Sidhu MDGlucose [Mass/Vol]88 mg/aKXmpsle56-04HussaFlower HospitalComment on above:Performed By: #### TIP, BMP #### [address] [place] [address] Bilingual Social Worker: JEREMY Olivasotassium [Moles/Vol]4.5 mmol/LNormal3.7-5.3MOhioHealth Mansfield Hospital HospitalComment on above:Performed By: #### CDP, BMP #### [facility] [address] [place] [address] Bilingual Social Worker: ROCIO Olivasodium [Moles/Vol]141 mmol/YEhxjbe467-078GufqzMercy Health St. Joseph Warren HospitalComment on above:Performed By: #### CDP, BMP #### [facility] [address] [place] [address] Bilingual Social Worker: Augusto Sidhu MDUrea nitrogen [Mass/Vol]31 mg/dLHigh8-23[facility] St. Joseph Warren HospitalComment on above:Performed By: #### TIP, BMP #### [facility] [address] [place] [address] Bilingual Social Worker: Augusto Sidhu MDCBC with Auto Differentialon 00-67-7791Dozijvlsy (Bld) [#/Vol]0.09 10*3/uLBon Secours Mercy HealthBasophils/100 WBC [...] (RBC) [Entitic mass]27.7 pg25.2 - 33.5 pgBon Community Memorial HospitalHC (RBC) [Mass/Vol]32 g/dL28.4 - 34.8 g/dLBon [facility] MCV (RBC) [Entitic vol]86.6 fL82.6 - 102.9 fLHealthsouth Medical Center Monocytes/100 WBC (Bld)6 %3 - 12 %Healthsouth Medical CenterMonocytes/100 WBC (Bld)0.47 %Healthsouth Medical CenterNeutrophils/100 WBC (Bld)82 %High36 - 65 %[facility] Medical CenterNucleated RBC/100 WBC (Bld) [Ratio]0 %0.0 per 100 WBCHealthsouth Medical CenterPlatelet mean volume (Bld) [Entitic vol]9.3 fL8.1 - 13.5 fL [facility] Medical CenterPlatelets (Bld) [#/Vol]251 10*3/uLHealthsouth Medical CenterRBC (Bld) [#/Vol]4.19 10*6/uLLow4.21 - 5.77 m/[facility] Segmented neutrophils/100 WBC (Bld)6.64 %Healthsouth Medical CenterWBC other (Bld) [#/Vol]8.1Bon [facility] CenterCBC with Diffon 19-76-2758Asc. Basophil0.09 k/uLNormal0.00-0.20[facility]. Joseph Warren HospitalComment on above:Performed By: #### TIP, BMP #### [address] [place] [address] Bilingual Social Worker: Trevor Olivas.Imm.Granulocyte0.03 k/uLNormal0.00-0.30[facility] Joseph Warren HospitalComment on above:Performed By: #### TIP, BMP #### [address] [place] [address] Bilingual Social Worker: Trevor Olivas.Neutrophil (Seg)6.64 k/uLNormal1.50-8.10[facility] HospitalComment on above:Performed By: #### CDP, BMP #### [address] [place] [address] Bilingual Social Worker: Augusto Sidhu MDBasophils/100 WBC (Bld)1 %Normal0-2[facility] HospitalComment on above:Performed By: #### CDP, BMP #### [address] [place] [address] Bilingual Social Worker: Augusto Sidhu MDEosinophils (Bld) [#/Vol]0.14 10*3/uLNormal 0.00-0.44[facility] HospitalComment on above:Performed By: #### CDP, BMP #### [address] [place] [address] Bilingual Social Worker: MOLLY Olivasosinophils/100 WBC (Bld)2 %Normal1-4[facility] HospitalComment on above:Performed By: #### CDP, BMP #### [address] [place] [address] Bilingual Social Worker: Augusto Sidhu MDErythrocyte distribution width (RBC) [Ratio]14.8 % High11.8-14.4[facility] HospitalComment on above:Performed By: #### CDP, BMP #### [address] [place] [address] Bilingual Social Worker: Augusto Sidhu MDHematocrit (Bld) [Volume fraction]36.3 %Low 40.7-50.3Mriverside methodist hospitaly Campbell HospitalComment on above:Performed By: #### CDP, BMP #### [address] [place] [id number] Bilingual Social Worker: Augusto Sidhu MDHemoglobin (Bld) [Mass/Vol]11.6 g/dLLow13.0-17.0 [facility] HospitalComment on above:Performed By: #### CDP, BMP #### [address] [place] [address] Bilingual Social Worker: Mariel Olivasture granulocytes/100 WBC (Bld)0 %Mlezqa9Decdo [facility] HospitalComment on above:Performed By: #### CDP, BMP #### [address] [place], [place] [address] Bilingual Social Worker: Gay Olivasmphocytes (Bld) [#/Vol]0.75 10*3/uLLow1.10-3.70 [facility] HospitalComment on above:Performed By: #### CDP, BMP #### [address] [place], [facility]83 Bilingual Social Worker: Gay Olivasmphocytes/100 WBC (Bld)9 %Egy16-61Darvo [facility] HospitalComment on above:Performed By: #### CDP, BMP #### [address] [place] [address] Bilingual Social Worker: DANDRE Olivas (RBC) [Entitic mass]27.7 psFhuygu12.2-33.5 [facility] HospitalComment on above:Performed By: #### CDP, BMP #### [address] [place], [facility]83 Bilingual Social Worker: DANDRE OlivasC (RBC) [Mass/Vol]32.0 g/bTBrndin33.4-34.8[facility] HospitalComment on above:Performed By: #### CDP, BMP #### [address] [place], [place] [address] Bilingual Social Worker: LORNA OlivasCV (RBC) [Entitic vol]86.6 nDSakhdm44.6-102.9 [facility] HospitalComment on above:Performed By: #### CDP, BMP #### [address] [place] [address] Bilingual Social Worker: LORNA Olivasonocytes (Bld) [#/Vol]0.47 10*3/uLNormal0.10-1.[address] [facility] HospitalComment on above:Performed By: #### CDP, BMP #### [address] [place], [place] [address] Bilingual Social Worker: LORNA Olivasonocytes/100 WBC (Bld)6 %Normal3-12[facility] Warren HospitalComment on above:Performed By: #### CDP, BMP #### [address] [place] [address] Bilingual Social Worker: Navin Olivasutrophil (Seg)82 %Oooh35-13CflweMercy Health St. Joseph [facility] Hospital Comment on above:Performed By: #### CDP, BMP #### [address] [place] [address] Bilingual Social Worker: Augusto Sidhu MDNRBC Automated0.0 per [address] Joseph Warren HospitalComment on above:Performed By: #### CDP, BMP #### [address] [place] [address] Bilingual Social Worker: Micah Olivas mean volume (Bld) [Entitic vol]9.3 fL Normal8.1-13.5[facility] Warren HospitalComment on above:Performed By: #### CDP, BMP #### [address] [place], [place] [address] Bilingual Social Worker: JEREMY Olivaslatelets (Bld) [#/Vol]251 10*3/mXQnlpqx121-[address] [facility] HospitalComment on above:Performed By: #### CDP, BMP #### [address] [place] [address] Bilingual Social Worker: ABEL Olivas ([facility]) [#/Vol]4.19 10*6/uLLow4.21-5.77[facility] HospitalComment on above:Performed By: #### CDP, BMP #### [facility] [address] [place] [address] Bilingual Social Worker: PANDA Olivas ([facility]) [#/Vol]8.1 10*3/uLNormal3.5-11.3[facility] HospitalComment on above:Performed By: #### CDP, BMP #### [facility] [address] [place], [place] [address] Bilingual Social Worker: Augusto Sidhu MDOffice Visiton [id number]-up [id number] Juan Jose Austin 1940 M Date Provider Department Center 01/19/2025 OLIVE ROBERTSON INESSA Clements Family History Problem Relation Age of Onset Heart failure Mother Lung cancer Father Family Status - Relation Status Age at Mother Father Level of Service:21333 RI OFFICE/OUTPATIENT ESTABLISHED LOW MDM 20 [facility]FairhillOrders Onlyon 63-05-2341Icdmrb [id number] Juan Jose Austin 1940 M Date Provider Department Center 01/19/2025 ROMEL LANDEROS INESSA Clements Family History Problem Relation Age of Onset Heart failure Mother Lung cancer Father Family Status - Relation Status Age at Mother Father DeceasedNormalUniversKettering Health PrebleOffice Visiton 41-15-8328Pozadn-up [id number] Juan Jose Austin 1940 M Date Provider Department Center 01/08/2025 KEVEN PULIDO INESSA Morrison [facility] Family History Problem Relation Age of Onset Heart failure Mother Lung cancer Father Family Status - Relation Status Age at Mother Father Level of Service:43918 RI OFFICE/OUTPATIENT ESTABLISHED MOD MDM 30 [facility]-FairhillCult,Woundon 52-76-8399Nwrh,WoundSpecimen Description .ABSCESS .CHEST SWAB Direct Exam NO [...] consideration. Tetracycline <=1 SUSCEPTIBLE Trimethoprim/Sulfa <=10 SUSCEPTIBLESusceptibleMercy Manchester Memorial HospitalComment on above:Performed By: #### [facility] ####[place] [address] [place] [address] lab Director: Lisset Kramer 89-77-2748APUVLTVyvcr () Office ([place]) JUAN JOSE AUSTIN ([id number]) 1940 M Date Time Provider Department 10/23/24 [...] Signed NAME: Juan Jose Austin CLINIC NO.: [id number] DATE OF SERVICE: October 23, 2024 (Eve) [...] - EGD/Colonoscopy: with Dr. Jacob Bear at [facility] Diverticulitis A. Duodenum, biopsy: - Duodenal [...] to suggest obstruction. 03/22/2024-04/12/2024 - Admitted at [facility] for non-ST elevated myoc (more content not included)...NormalKing's Daughters Medical Center [place] 06-36-7622HOG [Catalytic activity/Vol]19 U/L10 - 50 U/LBon [facility] [Catalytic activity/Vol]19 U/BLcguxq02-22RggyrMercy Health St. Joseph Warren HospitalComment on above:Performed By: #### ALT, BMP, AST #### [facility] [address] [place] [address] Bilingual Social Worker: Raphael Olivas 93-30-4785ZRH [Catalytic activity/Vol]28 U/L 10 - 50 U/LBon Bluffton HospitalAST [Catalytic activity/Vol]28 U/CKaxuyy29-[address] [facility] Warren HospitalComment on above:Performed By: #### ALT, BMP, AST #### [facility] [address] [place] [address] Bilingual Social Worker: Al Olivas Metabolic Panelon 77-34-2863Eajfh gap [Moles/Vol]10 mmol/L9 - 16 mmol/LBon [facility] [employer] [facility] SouthCalcium [Mass/Vol]9.3 mg/dL8.6 - 10.4 mg/dLBon [facility] [employer] [facility] SouthChloride [Moles/Vol]109 mmol/LHigh 98 - 107 mmol/LBon [facility] [employer] [facility] SouthCO2 [Moles/Vol]27 mmol/L20 - 31 mmol/LBon [facility] 50 PartnersSentara Northern Virginia Medical CenterCreatinine [Mass/Vol]1.7 mg/dLHigh0.70 - 1.20 mg/dLBon [facility] Splick.itEst, Glom Filt Rwpw01Obv- PINFBon [facility] Comment on above: These results are not [...] that affects renal tubular secretion. Glucose [Mass/Vol]101 mg/sAFzxg64 - 99 mg/dLBon [facility] CampusAppoet Interpretation and review of laboratory resultsAbnormalBon [facility] CampusAppoet Potassium [Moles/Vol]4.5 mmol/L3.7 - 5.3 mmol/LBon [facility] Memorial HospitalAFARSodium [Moles/Vol]146 mmol/QOpwg063 - 145 mmol/LBon [facility] HospitalUrea nitrogen [Mass/Vol]35 mg/dLHigh8 - 23 mg/dLBon [facility] HospitalUrea nitrogen/Creatinine [Mass ratio]21 mg/mgHigh9 - 20Bon [facility] HospitalBasic Metabolic Profon 38-74-5787Uomej gap [Moles/Vol]10 mmol/LNormal9-16[facility] Warren HospitalComment on above:Performed By: #### ALT, BMP, AST #### [address] [place], [place] [address] Bilingual Social Worker: Augusto Sidhu MDBUN/CRE Omorv78Cyqo6-51XhmebMercy Health St. [facility] Hospital Comment on above:Performed By: #### ALT, BMP, AST #### [address] [place], [place] [address] Bilingual Social Worker: SHEREE Olivasalcium [Mass/Vol]9.3 mg/dLNormal8.6-10.4[facility] Warren HospitalComment on above:Performed By: #### ALT, BMP, AST #### [address] [place], [place] [address] Bilingual Social Worker: SHEREE Olivashloride [Moles/Vol]109 mmol/YPitc44-379TxudgMercy Health St. Joseph Warren HospitalComment on above:Performed By: #### ALT, BMP, AST #### [address] [place], [place] [address] Bilingual Social Worker: Augusto Sidhu MDCO2 [Moles/Vol]27 mmol/QAtobed89-34DyftqMercy Health St. Joseph Warren HospitalComment on above:Performed By: #### ALT, BMP, AST #### [address] [place] [address] Bilingual Social Worker: SHEREE Olivasreatinine [Mass/Vol]1.7 mg/dLHigh0.70-1.20[facility] Warren HospitalComment on above:Performed By: #### ALT, BMP, AST #### [address] [place] [address] Bilingual Social Worker: Augusto Sidhu MDGFR/1.73 sq M.predicted among non-blacks MDRD (S/P/Bld) [Vol rate/Area]40 mL/min/{1.73_m2}Low>60MerMain Campus Medical Center HospitalComment on above:Result Comment: These results are [...] secretion.Performed By: #### ALT, BMP, AST #### [address] [place] [address] Bilingual Social Worker: Augusto Sidhu MDGlucose [Mass/Vol]101 mg/nLDlwz99-12Qxqkb [facility] HospitalComment on above:Performed By: #### ALT, BMP, AST #### [address] [place] [address] Bilingual Social Worker: JEREMY Olivasotassium [Moles/Vol]4.5 mmol/LNormal3.7-5.3[facility] HospitalComment on above:Performed By: #### ALT, BMP, AST #### [address] [place] [address] Bilingual Social Worker: ROCIO Olivasodium [Moles/Vol]146 mmol/LTgwt152-761LamuhMercy Health St. Joseph Warren HospitalComment on above:Performed By: #### ALT, BMP, AST #### [address] [place] [address] Bilingual Social Worker: Augusto Sidhu MDUrea nitrogen [Mass/Vol]35 mg/dLHigh8-23[facility]. [facility] Warren HospitalComment on above:Performed By: #### ALT, BMP, AST #### [place] [address] [place], [place] [address] Bilingual Social Worker: Augusto Sidhu MDLipid Panelon 39-76-9433Uqjqhhvyida [Mass/Vol]134 mg/dL0 - 199 mg/dLBon [facility] HospitalComment on above: Cholesterol Guidelines: <200 Desirable 200-240 Borderline >240 Undesirable Cholesterol in HDL [Mass/Vol]51 mg/dL40 - PINF mg/dLBon [facility] Comment on above: HDL Guidelines: <40 Undesirable 40-59 Borderline >59 Desirable Cholesterol in LDL [Mass/Vol]65 mg/dL0 - 100 mg/dLBon [facility] Splick.it Comment on above: LDL Guidelines: <100 Desirable 100-129 Near to/above Desirable 130-159 Borderline >159 Undesirable Direct (measured) LDL and calculated LDL are not interchangeable tests. Cholesterol in VLDL [Mass/Vol]18 mg/dL1 - 30 mg/dLBon [facility] Cholesterol.total/Cholesterol in HDL [Mass ratio]2.6 {ratio}[facility] RosterbotTriglyceride [Mass/Vol]92 mg/dLNINF - 150 mg/dLBon [facility] Rosterbot Comment on above: Triglyceride Guidelines: <150 Desirable 150-199 Borderline 200-499 High >499 Very high Based on AHA Guidelines for fasting triglyceride, July 2012. [facility] [employer]DR Sales [employer] ConceptsLipid Profileon 25-63-9695Xtgnxglrklh [Mass/Vol]134 mg/dLNormal0-199[facility] St. Joseph Warren HospitalComment on above:Result Comment: Cholesterol Guidelines: <200 Desirable 200-240 Borderline >240 UndesirablePerformed By: #### LIPR ####[employer] [address] [place] [address] Lab Director: SHEREE Kramerholesterol in HDL [Mass/Vol]51 mg/dLNormal>40[facility] St. Joseph Warren HospitalComment on above:Result Comment: HDL Guidelines: <40 Undesirable 40-59 Borderline >59 DesirablePerformed By: #### LIPR ####[employer] [address] [place], [place] [id number] Lab Director: SHEREE Kramerholesterol in LDL [Mass/Vol]65 mg/dLNormal0-100Mer[facility] Health St. Joseph Warren HospitalComment on above:Result Comment: LDL Guidelines: <100 Desirable 100-129 Near to/above Desirable 130-159 Borderline >159 Undesirable Direct (measured) LDL and calculated LDL are not interchangeable tests.Performed By: #### LIPR ####[employer] [address] [place] [phone] Director: SHEREE Kramerholesterol in VLDL [Mass/Vol]18 mg/dLNormal 1-30MerSaint Francis Hospital & Medical CenterComment on above:Performed By: #### LIPR ####[employer] [address] [place] [address] Lab Director: Bebo Kramer.total/Cholesterol in HDL [Mass ratio]2.6 {ratio}Normal [facility] Warren HospitalComment on above:Performed By: #### LIPR ####[employer] [address] [place] [address] Lab Director: Hung Nguyen MDTriglyceride [Mass/Vol]92 mg/dLNormal<150Mer[facility] Health St. Joseph Warren HospitalComment on above:Result Comment: Triglyceride Guidelines: <150 Desirable 150-199 Borderline 200-499 High >499 Very high Based on AHA Guidelines for fasting triglyceride, July 2012.Performed By: #### LIPR ####[address] [place] [address] Lab Director: Hung Nguyen MDNo Panel Informationon 44-60-3350Jjm [facility] HospitalT4, Freeon 01-20-2926Omzr T4 [Mass/Vol]1.1 ng/dL0.92 - 1.68 ng/dLBon [facility] Medical CenterTSHon 91-51-4486Jpskklpjumjent and review of laboratory resultsAbnormalInova Loudoun Hospital Qn4.65 m[IU]/L HighBon [facility] Medical CenterThyroid Stim. Horm.on 48-63-4811Nzszuuw Stim. Horm.4.65 uIU/mLHigh0.27-4.20[facility] Comment on above:Performed By: #### TSH ####[address] , [place] [address] Lab Director: Augusto Sidhu MD#### FT4 ####[address] [place], [place] [address] Lab Director: Hung Nguyen MDThyroxine, Freeon 65-02-5384Hslbggksp, Free1.1 ng/dL Normal0.92-1.68[facility] Joseph Warren HospitalComment on above:Performed By: #### TSH ####[address] , [place] [phone] Director: Augusto Sidhu MD#### FT4 ####[address] [place], [place] [address] Lab Director: Hung Nguyen [facility] W Auto Differential panel (Bld)on 83-10-5904Wkwfczwmr (Bld) [#/Vol]0.05 10*3/uLNINF Mark Center ClinicBasophils/100 WBC (Bld)0.8 %[facility] HospitalDifferential cell count method Nom (Bld)AutoCleveland ClinicEosinophils (Bld) [#/Vol]0.14 10*3/uL NINFCleveland ClinicEosinophils/100 WBC (Bld)2.4 %[facility] HospitalErythrocyte distribution width (RBC) [Ratio]14.1 %11.5 - 15.0 %[facility] HospitalHematocrit (Bld) [Volume fraction]39.6 %39.0 - 51.0 %[facility] HospitalHemoglobin (Bld) [Mass/Vol]13.7 g/dL13.0 - 17.0 g/dLUc West Chester HospitalImmature granulocytes (Bld) [#/Vol]0.03 10*3/uLNINFUc West Chester HospitalImmature granulocytes/100 WBC (Bld)0.5 % [facility] HospitalInterpretation and review of laboratory resultsAbnormalCleveland ClinicLymphocytes (Bld) [#/Vol]0.74 10*3/uLLowUc West Chester HospitalLymphocytes/100 WBC (Bld)12.4 %[facility] HospitalH (RBC) [Entitic mass]29.2 pg26.0 - 34.0 pg [facility] HospitalHC (RBC) [Mass/Vol]34.6 g/dL30.5 - 36.0 g/dLUc [facility] Hospital MCV (RBC) [Entitic vol]84.4 fL80.0 - 100.0 fLCKing's Daughters Medical Center OhioMonocytes (Bld) [#/Vol]0.39 10*3/uLNINFUc West Chester HospitalMonocytes/100 WBC (Bld)6.6 %[facility] HospitalNeutrophils (Bld) [#/Vol]4.60 10*3/uLUc West Chester HospitalNeutrophils/100 WBC (Bld)77.3 %[facility] HospitalNucleated RBC (Bld) [#/Vol]NINFCKing's Daughters Medical Center Ohio Nucleated RBC/100 WBC (Bld) [Ratio]0.0 %/100 WBCUc West Chester HospitalPlatelet mean volume (Bld) [Entitic vol]9.1 fL9.0 - 12.7 fLCKing's Daughters Medical Center OhioPlatelets (Bld) [#/Vol]168 10*3/uLUc West Chester HospitalRBC (Bld) [#/Vol]4.69 10*6/uL4.20 - 6.00 m/uL [facility] HospitalWBC (Bld) [#/Vol]5.95 10*3/uLShelby Memorial Hospital Basophils (Bld) [#/Vol]0.05 10*3/uLNormal<0.11CMercy HealthComment on above:Order Comment: Specimen Type: BLOOD SPECIMENOrdering Facility: [facility] Address:[address] [place] [address] Performed By: #### 28446-8 ####[facility] LABCLIA [id number] [place], [place] [address]Shyrsypnk/100 WBC (Bld)0.8 % NormalCherrington Hospital on above:Order Comment: Specimen Type: BLOOD SPECIMENOrdering Facility: [facility] Address:[address] [place], [place] [address]Performed By: #### 21730-8 ####[facility] LABCLIA [id number] [place] [address] Differential cell count method Nom (Bld)AutoNormalClevelUNC Health Comment on above:Order Comment: Specimen Type: BLOOD SPECIMENOrdering Facility: [facility] Address:[address] [place] [address] Performed By: #### 29728-9 ####[facility] LABCLIA [id number] [place], [place] [address]Ebolqzwpcpr (Bld) [#/Vol]0.14 10*3/uLNormal<0.46[facility] on above:Order Comment: Specimen Type: BLOOD SPECIMENOrdering Facility: [facility] Address:[address] [place], [place] [address]Performed By: #### 74187-5 ####[facility] LABIA [id number] [place], [place] [address]Engnopgjmcp/100 WBC (Bld)2.4 %NormalLutheran Hospitalment on above:Order Comment: Specimen Type: BLOOD SPECIMENOrdering Facility: [facility] Address:[address] [place], [place] [address]Performed By: #### 77193-0 ####[facility] LABIA [id number] [place], [place] [address]Dozrqjcujjx distribution width (RBC) [Ratio]14.1 %Npkkko31.5-15.0[facility] on above: Order Comment: Specimen Type: BLOOD SPECIMENOrdering Facility: [facility] Address:[address] [place], [place] [address]Performed By: #### 38182- 8 ####[facility] LABIA [id number] [place], [place] [address]Jvpqbibcnb (Bld) [Volume fraction]39.6 %Tkctfz37.0-51.0 [facility] on above:Order Comment: Specimen Type: BLOOD SPECIMENOrdering Facility: [facility] Address:[address] [place], [place] [address]Performed By: #### 18936-3 ####[facility] LABIA [id number] [place], [place] [address]Fhxpoespuc (Bld) [Mass/Vol]13.7 g/qYLuqcof62.0-17.0[facility] on above: Order Comment: Specimen Type: BLOOD SPECIMENOrdering Facility: [facility] Address:[address] [place], [place] [address]Performed By: #### 66489- 8 ####[facility] LABIA [id number] [place], [place] [address]Lizowtlg granulocytes (Bld) [#/Vol]0.03 10*3/uLNormal <0.10[facility] on above:Order Comment: Specimen Type: BLOOD SPECIMENOrdering Facility: [facility] Address:[address] [place], [place] [address]Performed By: #### 34996-3 ####[facility] LABIA [id number] [place], [place] [address]Rghbxhcn granulocytes/100 WBC (Bld)0.5 %NormalCherrington Hospital on above: Order Comment: Specimen Type: BLOOD SPECIMENOrdering Facility: [facility] Address:[address] [place], [place] [address]Performed By: #### 11119- 8 ####[facility] LABIA [id number] [place], [place] [address]Eiufwiqdwnx (Bld) [#/Vol]0.74 10*3/uLLow1.00-4.00 [facility] on above:Order Comment: Specimen Type: BLOOD SPECIMENOrdering Facility: [facility] Address:[address] [place], [place] [address]Performed By: #### 63310-8 ####[facility] LABCLIA [id number] [place], [place] [address]Svkokiqdvri/100 WBC (Bld)12.4 %NormalCherrington Hospital on above:Order Comment: Specimen Type: BLOOD SPECIMENOrdering Facility: [facility] Address:[address] [place], [place] [address]Performed By: #### 47258-1 ####[facility] LABCLIA [id number] [place], [place] [address]ZPM (RBC) [Entitic mass]29.2 txTzzhkn75.0-34.0[facility] on above:Order Comment: Specimen Type: BLOOD SPECIMENOrdering Facility: [facility] Address:[address] [place], [place] [address]Performed By: #### 63817-8 ####[facility] LABCLIA [id number] [place], [place] [address]NITJ (RBC) [Mass/Vol]34.6 g/bDTiamzq34.5-36.0[facility] on above: Order Comment: Specimen Type: BLOOD SPECIMENOrdering Facility: [facility] Address:[address] [place], [place] [address]Performed By: #### 21877- 8 ####[facility] LABCLIA [id number] [place], [place] [address]WXN (RBC) [Entitic vol]84.4 lMZqnxkn94.0-100.0[facility] on above:Order Comment: Specimen Type: BLOOD SPECIMENOrdering Facility: [facility] Address:[address] [place], [place] [address]Performed By: #### 22713-7 ####[facility] LABIA [id number] [place], [place] [address]Vbyyirjul (Bld) [#/Vol]0.39 10*3/uLNormal<0.87[facility] on above:Order Comment: Specimen Type: BLOOD SPECIMENOrdering Facility: [facility] Address:[address] [place], [place] [address]Performed By: #### 85049- 8 ####[facility] LABCLIA [id number] [place], [place] [address]Zvomdnowg/100 WBC (Bld)6.6 %NormalCherrington Hospital on above:Order Comment: Specimen Type: BLOOD SPECIMENOrdering Facility: [facility] Address:[address] [place], [place] [address]Performed By: #### 69415-2 ####[facility] LABCLIA [id number] [place], [place] [address]Clwhyhzwhrb (Bld) [#/Vol]4.60 10*3/uLNormal1.45-7.50[facility] on above:Order Comment: Specimen Type: BLOOD SPECIMENOrdering Facility: [facility] Address:[address] [place], [place] [address]Performed By: #### 54847-7 ####[facility] LABCLIA [id number] [place], [place] [address]Wxfzjcacfkx/100 WBC (Bld)77.3 %NormalCherrington Hospital on above:Order Comment: Specimen Type: BLOOD SPECIMENOrdering Facility: [facility] Address:[address] [place], [place] [address]Performed By: #### 41963-5 ####[facility] LABIA [id number] [place], [place] [address]Owrivlsql RBC (Bld) [#/Vol] 10*3/uLNormal<0.01[facility] on above:Order Comment: Specimen Type: BLOOD SPECIMENOrdering Facility: [facility] Address:[address] [place], [place] [address]Performed By: #### 13483-3 ####[facility] LABCLIA [id number] [place], [place] [address]Ogpirnoat RBC/100 WBC (Bld) [Ratio]0.0 /100 WBCNormal [facility] on above:Order Comment: Specimen Type: BLOOD SPECIMENOrdering Facility: [facility] Address:[address] [place], [place] [address]Performed By: #### 08478-5 ####[facility] LABCLIA [id number] [place], [place] [address]Ysrnzoqb mean volume (Bld) [Entitic vol]9.1 fLNormal9.0-12.7CLakeHealth Beachwood Medical Center on above:Order Comment: Specimen Type: BLOOD SPECIMENOrdering Facility: [facility] Address:[address] [place] [address] Performed By: #### 20090-0 ####[facility] LABCLIA [id number] [place], [place] [address]Vbweoylwp (Bld) [#/Vol]168 10*3/vYDarjwt980-749GcqaumtbvCherrington Hospital on above:Order Comment: Specimen Type: BLOOD SPECIMENOrdering Facility: [facility] Address:[address] [place], [place] [address]Performed By: #### 12117-1 ####[facility] LABCLIA [id number] [place], [place] [address]AUY (Bld) [#/Vol]4.69 10*6/uLNormal4.20-6.00[facility] on above:Order Comment: Specimen Type: BLOOD SPECIMENOrdering Facility: [facility] Address:[address] [place], [place] [address]Performed By: #### 10418-5 ####[facility] LABCLIA [id number] [place], [place] [address]GOH (Bld) [#/Vol]5.95 10*3/uLNormal3.70-11.00[facility] General HospitalComment on above: Order Comment: Specimen Type: BLOOD SPECIMENOrdering Facility: [facility] Address:[address] [place], [place] [address]Aiymykmvt By: #### 21841- 8 ####[facility] LABCLIA [id number] [place], [place] [address]QT ABD/PEL W IVCONon 83-97-7690ZH ABD/PEL W IVCON* * *Final Report* * * DATE OF EXAM: Oct 16 2024 9:08AM [facility] [place] 0530 - CT ABD/PEL W IVCON / [...] any questions regarding this interpretation, please call [phone]. If you are unable to reach us at the number above, please feel free to contact [facility] eRadiology at [phone]. [id number]_IDCSIACNNormalWyandot Memorial Hospital Abdomen and Pelvis W contrast [place] 83-05-8745VSFFFXQHKW: 1. Stable examination when compared to the [...] any questions regarding this interpretation, please call [phone]. If you are unable to reach us at the number above, please feel free to contact [facility] eRadiology at [phone].DIVISION OF RADIOLOGY* * *Final Report* * * DATE OF EXAM: Oct 16 2024 9:08AM [facility] [place] 0530 - CT ABD/PEL W IVCON / [...] images: No additional findings. DIVISION OF RADIOLOGYProvider, [facility] [place] - 10/16/2024 * * *Final Report* * * DATE OF EXAM: Oct 16 2024 9:08AM [facility] [place] 0530 - CT ABD/PEL W IVCON / [...] any questions regarding this interpretation, please call [phone]. If you are unable to reach us at the number above, please feel free to contact [facility] eRadiology at [phone]. [facility] CHEST W IVCONon 91-03-8594FN CHEST W IVCON* * *Final Report* * * DATE OF EXAM: Oct 16 2024 9:08AM [facility] [place] 0539 - CT CHEST W IVCON / [...] any questions regarding this interpretation, please call [phone]. If you are unable to reach us at the number above, please feel free to contact [facility] eRadiology at [phone]. [id number]_IDCSIACNNormalOhiohealth Marion General HospitalCT Chest W contrast [place] 70-16-7557XSNCAJFGZB: 1. Stable subcentimeter pulmonary nodules. Stable top [...] any questions regarding this interpretation, please call [phone]. If you are unable to reach us at the number above, please feel free to contact [facility] at [phone].DIVISION OF RADIOLOGY* * *Final Report* * * DATE OF EXAM: Oct 16 2024 9:08AM [facility] [place] 0539 - CT CHEST W IVCON / [...] images: No additional findings. DIVISION OF RADIOLOGYProvider, [facility] [place] - 10/16/2024 * * *Final Report* * * DATE OF EXAM: Oct 16 2024 9:08AM [facility] [place] 0539 - CT CHEST W IVCON / [...] any questions regarding this interpretation, please call [phone]. If you are unable to reach us at the number above, please feel free to contact [facility] eRadiology at [phone]. [facility] HospitalComprehensive metabolic 2000 panelOrdered By: Elizabeth Cody on 84-18-8538Uxxpexq [Mass/Vol]4.3 g/dL3.9 - 4.9 g/dLMark Center ClinicALP [Catalytic activity/Vol]84 U/L38 - 113 U/LCleveland ClinicALT [Catalytic activity/Vol]19 U/L10 - 54 U/LCleveland ClinicAnion gap [Moles/Vol]10 mmol/L8 - 15 mmol/L [facility] HospitalAST [Catalytic activity/Vol]25 U/L14 - 40 U/LCleveland [facility] Bilirubin [Mass/Vol]0.9 mg/dL0.2 - 1.3 mg/dLUc West Chester HospitalCalcium [Mass/Vol] 9.2 mg/dL8.5 - 10.2 mg/dLUc West Chester HospitalChloride [Moles/Vol]105 mmol/L98 - 107 mmol/LCleveland ClinicCO2 [Moles/Vol]26 mmol/L22 - 30 mmol/LC[facility] Clinic Creatinine [Mass/Vol]1.71 mg/dLHigh0.73 - 1.22 mg/dLUc West Chester HospitalGFR/1.73 sq M.predicted among non-blacks MDRD (S/P/Bld) [...] eGFRmay not accurately reflect actual GFR.Glucose [Mass/Vol]112 mg/vQHiyu93 - 99 mg/dLUc West Chester Hospital Comment on above:The [place] Diabetes Association (ADA) provides guidance for cutoff [...] Standards of Medical Care in Diabetes 2016, [place] [employer]. Diabetes Care. 2016.39(Suppl 1). Interpretation and review of laboratory resultsAbnormalCleveland ClinicPotassium [Moles/Vol]4.2 mmol/L3.7 - 5.1 mmol/LCkettering health dayton ClinicProtein [Mass/Vol]6.4 g/dL 6.3 - 8.0 g/dLGalion Hospitalodium [Moles/Vol]141 mmol/L136 - 144 mmol/L [facility] HospitalUrea nitrogen [Mass/Vol]32 mg/dLHigh9 - 24 mg/dLRegency Hospital Cleveland EastComprehensive metabolic 2000 panelon 79-58-4342Iotjrxq [Mass/Vol]4.3 g/dLNormal3.9-4.9CMercy HealthComment on above:Order Comment: Specimen Type: BLOOD SPECIMENOrdering Facility: [facility] Address:[address] [place], [place] [address]Performed By: #### 35680- 8 ####[facility] LABCLIA [id number] [place], [place] [address]PNX [Catalytic activity/Vol]84 U/XKrvpnb32-510NztzufrqyCherrington Hospital on above:Order Comment: Specimen Type: BLOOD SPECIMENOrdering Facility: [facility] Address:[address] [place], [place] [address]Performed By: #### 33759-5 ####[facility] LABCLIA [id number] [place], [place] [address]PSL [Catalytic activity/Vol]19 U/ETkvitw10-67TwovxpnedCherrington Hospital on above:Order Comment: Specimen Type: BLOOD SPECIMENOrdering Facility: [facility] Address:[address] [place], [place] [address]Performed By: #### 44836- 8 ####[facility] LABCLIA [id number] [facility] [place], [place] [address]Jucxk gap [Moles/Vol]10 mmol/LNormal8-15[facility] on above:Order Comment: Specimen Type: BLOOD SPECIMENOrdering Facility: [facility] Address:[address] [place], [place] [address]Performed By: #### 02771-7 ####[facility] LABCLIA [id number] [place], [place] [address]KQT [Catalytic activity/Vol]25 U/FDrtpbw25-04RhpuamzjiCherrington Hospital on above:Order Comment: Specimen Type: BLOOD SPECIMENOrdering Facility: [facility] Address:[address] [place], [place] [address]Performed By: #### 65171-1 ####[facility] LABCLIA [id number] [place] [address] Bilirubin [Mass/Vol]0.9 mg/dLNormal0.2-1.3CLakeHealth Beachwood Medical Center on above:Order Comment: Specimen Type: BLOOD SPECIMENOrdering Facility: [facility] Address:[address] [place], [place] [address]Performed By: #### 00379-6 ####[facility] LABCLIA [id number] [place], [place] [address]Gidrwaw [Mass/Vol]9.2 mg/dLNormal8.5-10.2CLakeHealth Beachwood Medical Center on above:Order Comment: Specimen Type: BLOOD SPECIMENOrdering Facility: [facility] Address:[address] [place], [place] [address]Performed By: #### 08078-3 ####[facility] LABCLIA [id number] [place], [place] [address]Yossgwdw [Moles/Vol]105 mmol/LBdcybs98-718SyzqkwohuCherrington Hospital on above: Order Comment: Specimen Type: BLOOD SPECIMENOrdering Facility: [facility] Address:[address] [place], [place] [address]Performed By: #### 82678- 8 ####[facility] LABCLIA [id number] [place], [place] [address]DL5 [Moles/Vol]26 mmol/UAlvljo59-56NvvmkisfbCherrington Hospital on above:Order Comment: Specimen Type: BLOOD SPECIMENOrdering Facility: [facility] Address:[address] [place], [place] [address]Performed By: #### 54329-9 ####[facility] LABCLIA [id number] [place], [place] [address]Obothkvjhj [Mass/Vol]1.71 mg/dL High0.73-1.22[facility] on above:Order Comment: Specimen Type: BLOOD SPECIMENOrdering Facility: [facility] Address:[address] [place], [place] [address]Performed By: #### 91444-6 ####[facility] LABCLIA [id number] [place] [address] Creatinine and Glomerular filtration rate.predicted panel (S/P/Bld)39 mL/min/1.73m???Low>=60[facility] on above:Order Comment: Specimen Type: BLOOD SPECIMENOrdering Facility: [facility] Address:[address] [place], [place] [address]Result Comment: Estimated Glomerular Filtration Rate (eGFR) is calculated using the 2020 CKD-EPI creatinine equation. This equation utilizes serum creatinine, sex, and age as parameters. The creatinine assay has traceable calibration to isotope dilution-mass spectrometry. Refer to KDIGO guidelines for clinical interpretation. In patients with unstable renal function, e.g. those with acute kidney injury, the eGFR may not accurately reflect actual GFR.Performed By: #### 15323-9 ####[facility] LABCLIA [id number] [place] [address] Glucose [Mass/Vol]112 mg/cGRzvf66-16EwbkyqgpnCherrington Hospital on above: Order Comment: Specimen Type: BLOOD SPECIMENOrdering Facility: [facility] Address:[address] [place], [place] [address]Result Comment: The [place] Diabetes Association (ADA) provides guidance for cutoff [...] Standards of Medical Care in Diabetes 2016, [place] [employer]. Diabetes Care. 2016.39(Suppl 1).Performed By: #### 98327-1 ####[facility] LABCLIA [id number] [place], [place] [address]Wewrsoxcc [Moles/Vol]4.2 mmol/LNormal3.7-5.1CLakeHealth Beachwood Medical Center on above:Order Comment: Specimen Type: BLOOD SPECIMENOrdering Facility: [facility] Address:[address] [place], [place] [address]Performed By: #### 89509-7 ####[facility] LABCLIA [id number] [place], [place] [address]Htlmjfn [Mass/Vol]6.4 g/dLNormal6.3-8.0[facility] on above:Order Comment: Specimen Type: BLOOD SPECIMENOrdering Facility: [facility] Address:[address] [place], [place] [address]Performed By: #### 45266- 8 ####[facility] LABCLIA [id number] [place], [place] [address]Ibuhiy [Moles/Vol]141 mmol/GGmujqn515-739MegtmyspsCherrington Hospital on above:Order Comment: Specimen Type: BLOOD SPECIMENOrdering Facility: [facility] Address:[address] [place] [address]Pzoasnbcn By: #### 89572-5 ####[facility] LABCLIA [id number] [place], [place] [address]Lzfl nitrogen [Mass/Vol]32 mg/dLHigh9-24[facility] on above:Order Comment: Specimen Type: BLOOD SPECIMENOrdering Facility: [facility] Address:[address] [place], [place] [address]Performed By: #### 28142-3 ####[facility] LABCLIA [id number] [place] [address] No Panel Informationon 11-20-7425Umksdwpbv ClinicRadiology Study observation (narrative)[facility] HospitalOffice Visiton 39-66-1279Jshidt-up [id number] Juan Jose Austin 1940 M Date Provider Department Center 09/16/2024 JESSICA ALEJANDRO Family History Problem Relation Age of Onset Heart failure Mother Lung cancer Father Family Status - Relation Status Age at Mother Father Level of Service:81060 [place] OFFICE/OUTPATIENT ESTABLISHED LOW MDM 20 MIN Reason for Visit and Comments: Chest Pain [606025]NormalUnNationwide Children's HospitalXR CHEST (2 VW)on 78-14-9319WP CHEST (2 VW)EXAMINATION: TWO XRAY VIEWS OF THE CHEST 09/10/2024 9:15 pm COMPARISON: 03/22/2024 HISTORY: Pacemaker problem. FINDINGS: Stable left chest pacemaker. Stable cardiomediastinal contours. Left basilar atelectasis/scarring. Right lung is clear. No pleural effusion or pneumothorax. IMPRESSION: Left basilar atelectasis/scarring. Stable pacemaker. Interpreted by: Krunal Damian MD Signed by: Krunal Damian MD 09/10/24 Final resultNormalMerSaint Francis Hospital & Medical CenterXR Chest 2 Viewson 22-51-5192Bwum basilar atelectasis/scarring. Stable pacemaker. PN RIS CONSOLIDATEDEXAMINATION: TWO XRAY VIEWS OF THE CHEST 09/10/2024 9:15 pm COMPARISON: 03/22/2024 HISTORY: Pacemaker problem. FINDINGS: Stable left chest pacemaker. Stable cardiomediastinal contours. Left basilar atelectasis/scarring. Right lung is clear. No pleural effusion or pneumothorax. [facility] Krunal Eugene MD - 09/10/2024 EXAMINATION: TWO XRAY VIEWS OF THE CHEST 09/10/2024 9:15 pm COMPARISON: 03/22/2024 HISTORY: Pacemaker problem. FINDINGS: Stable left chest pacemaker. Stable cardiomediastinal contours. Left basilar atelectasis/scarring. Right lung is clear. No pleural effusion or pneumothorax. IMPRESSION: Left basilar atelectasis/scarring. Stable pacemaker. [facility] 50 PartnersSentara [facility] Medical CenterRadiology Study observation (narrative)[facility] [employer] [facility]XR Chest 2 ViewsOrdered By: Krunal Damian on [id number] [employer] Work Phone: [employer] Differential panel (Bld)on 08-21-2024 Basophils (Bld) [#/Vol]0.04 10*3/uLNormal<0.11CMercy HealthComment on above:Order Comment: Specimen Type: BLOOD SPECIMEN Ordering Facility: [facility] Address: [address] [place], [place] [address]Performed By: #### 98883-8 #### [facility] CLIA [id number] [address] [place] [address] 26114Nhnkagdlz/100 WBC (Bld)0.7 %NormalOhiohealth Marion General Hospital Comment on above:Order Comment: Specimen Type: BLOOD SPECIMEN Ordering Facility: [facility] Address: [address] [place], [place] [address]Performed By: #### 14468-7 #### [facility] CLIA [id number] [address] [place] [address] 52142Szcevxezacrn cell count method Nom (Bld)AutoNormalClevelAultman Alliance Community Hospital on above:Order Comment: Specimen Type: BLOOD SPECIMEN Ordering Facility: [facility] Address: [address] [place], [place] [address]Performed By: #### 05137-9 #### [facility] CLIA [id number] [address] [place] [address] 80179Rhopepigiby (Bld) [#/Vol]0.19 10*3/uLNormal<0.46[facility] on above:Order Comment: Specimen Type: BLOOD SPECIMEN Ordering Facility: [facility] Address: [address] [place], [place] [address]Performed By: #### 07389-8 #### [facility] CLIA [id number] [address] [place] [address] 58595Bzezeqdifnc/100 WBC (Bld)3.2 %NormalOhiohealth Marion General Hospital Comment on above:Order Comment: Specimen Type: BLOOD SPECIMEN Ordering Facility: [facility] Address: [address] [place], [place] [address]Performed By: #### 27478-7 #### [facility] CLIA [id number] [address] [place] [address] 08312Wjxsxipnkgl distribution width (RBC) [Ratio]14.5 %Normal 11.5-15.0[facility] on above:Order Comment: Specimen Type: BLOOD SPECIMEN Ordering Facility: [facility] Address: [address] [place], [place] [address]Performed By: #### 61054-1 #### [facility] CLIA [id number] [address] [place] [address] 45656Iqhlkjotdq (Bld) [Volume fraction]39.4 %Opsmtc88.0-51.0 [facility] on above:Order Comment: Specimen Type: BLOOD SPECIMEN Ordering Facility: [facility] Address: [address] [place], [place] [address]Performed By: #### 98241-0 #### [facility] CLIA [id number] [address] [place] [address] 26863Danwbhzeup (Bld) [Mass/Vol]13.6 g/pINknvaz26.0-17.0[facility] on above:Order Comment: Specimen Type: BLOOD SPECIMEN Ordering Facility: [facility] Address: [address] [place], [place] [address]Performed By: #### 18152-7 #### [facility] CLIA [id number] [address] [place] [address] 53814Akegssjh granulocytes (Bld) [#/Vol]0.03 10*3/uLNormal<0.10 [facility] on above:Order Comment: Specimen Type: BLOOD SPECIMEN Ordering Facility: [facility] Address: [address] [place], [place] [address]Performed By: #### 98875-2 #### [facility] CLIA [id number] [address] [place] [address] 54379Glapdmbc granulocytes/100 WBC (Bld)0.5 %NormalCherrington Hospital on above:Order Comment: Specimen Type: BLOOD SPECIMEN Ordering Facility: [facility] Address: [address] [place], [place] [address]Performed By: #### 43630-2 #### [facility] CLIA [id number] [address] [place] [address] 98914Pnhtqamvisc (Bld) [#/Vol]0.91 10*3/uLLow1.00-4.00[facility] on above:Order Comment: Specimen Type: BLOOD SPECIMEN Ordering Facility: [facility] Address: [address] [place], [place] [address]Performed By: #### 59456-2 #### [facility] CLIA [id number] [address] [place] [address] 54383Ocjxulthffv/100 WBC (Bld)15.1 %NormalCherrington Hospital on above:Order Comment: Specimen Type: BLOOD SPECIMEN Ordering Facility: [facility] Address: [address] [place], [place] [address]Performed By: #### 93312-3 #### [facility] CLIA [id number] [address] [place] [address] 30158KCT (RBC) [Entitic mass]28.8 jcUykywr25.0-34.0[facility] on above:Order Comment: Specimen Type: BLOOD SPECIMEN Ordering Facility: [facility] Address: [address] [place], [place] [address]Performed By: #### 40298-0 #### [facility] CLIA [id number] [address] [place] [address] 69937UPIM (RBC) [Mass/Vol]34.5 g/sKPpeblr54.5-36.0[facility] on above:Order Comment: Specimen Type: BLOOD SPECIMEN Ordering Facility: [facility] Address: [address] [place], [place] [address]Performed By: #### 95953-3 #### [facility] CLIA [id number] [address] [place] [address] 83568QZO (RBC) [Entitic vol]83.5 tRQwvfji94.0-100.0[facility] on above:Order Comment: Specimen Type: BLOOD SPECIMEN Ordering Facility: [facility] Address: [address] [place], [place] [address]Performed By: #### 39073-4 #### [facility] CLIA [id number] [address] [place] [address] 53681Zkuocwyqd (Bld) [#/Vol]0.39 10*3/uLNormal<0.87[facility] on above:Order Comment: Specimen Type: BLOOD SPECIMEN Ordering Facility: [facility] Address: [address] [place], [place] [address]Performed By: #### 60164-2 #### [facility] CLIA [id number] [address] [place], [place] [address]Uuywgnewj/100 WBC (Bld)6.5 %NormalOhiohealth Marion General Hospital Comment on above:Order Comment: Specimen Type: BLOOD SPECIMEN Ordering Facility: [facility] Address: [address] [place], [place] [address]Performed By: #### 46687-8 #### [facility] CLIA [id number] [address] [place], [place] [address]Mvvkzpduasq (Bld) [#/Vol]4.45 10*3/uLNormal1.45-7.50[facility] on above:Order Comment: Specimen Type: BLOOD SPECIMEN Ordering Facility: [facility] Address: [address] [place], [place] [address]Performed By: #### 87362-6 #### [facility] CLIA [id number] [address] [place] [address] 19421Xziwsxmwipq/100 WBC (Bld)74.0 %NormalCherrington Hospital on above:Order Comment: Specimen Type: BLOOD SPECIMEN Ordering Facility: [facility] Address: [address] [place], [place] [address]Performed By: #### 11369-5 #### [facility] CLIA [id number] [address] [place] [address] 00761Brawyukku RBC (Bld) [#/Vol]10*3/uLNormal<0.01[facility] on above:Order Comment: Specimen Type: BLOOD SPECIMEN Ordering Facility: [facility] Address: [address] [place], [place] [address]Performed By: #### 64826-7 #### [facility] CLIA [id number] [address] [place] [address] 72530Ixyrispjv RBC/100 WBC (Bld) [Ratio]0.0 /100 WBCNormalCLakeHealth Beachwood Medical Center on above:Order Comment: Specimen Type: BLOOD SPECIMEN Ordering Facility: [facility] Address: [address] [place], [place] [address]Performed By: #### 91286-4 #### [facility] CLIA [id number] [address] [place], [place] [address]Rqarfmcw mean volume (Bld) [Entitic vol]9.1 fLNormal9.0-12.7 [facility] on above:Order Comment: Specimen Type: BLOOD SPECIMEN Ordering Facility: [facility] Address: [address] [place], [place] [address]Performed By: #### 05879-7 #### [facility] CLIA [id number] [address] [place], [place] [address]Irxifrkch (Bld) [#/Vol]166 10*3/sJIyhnip543-038VwvntnoxkCherrington Hospital on above:Order Comment: Specimen Type: BLOOD SPECIMEN Ordering Facility: [facility] Address: [address] [place], [place] [address]Performed By: #### 98285-8 #### [facility] CLIA [id number] [address] [place] [address] 81436ZEO (Bld) [#/Vol]4.72 10*6/uLNormal4.20-6.00[facility] on above:Order Comment: Specimen Type: BLOOD SPECIMEN Ordering Facility: [facility] Address: [address] [place], [place] [address]Performed By: #### 63797-8 #### [facility] CLIA [id number] [address] [place] [address] 72926JZU (Bld) [#/Vol]6.01 10*3/uLNormal3.70-11.00[facility] on above:Order Comment: Specimen Type: BLOOD SPECIMEN Ordering Facility: [facility] Address: [address] [place], [place] [address]Performed By: #### 40522-1 #### [facility] CLIA [id number] [address] [place] [address] 92101UGPPPZbu 72-70-9879NVSDPXFvigp (SP) Office ([place]) DUC AUSTINQamar Watson ([id number]) 1940 Date Time Provider Department 08/21/24 9:40 AM GRAEME VZAQUEZ During your visit today, we recorded the following information about you: Temperature Pulse Respiration Blood pressure 97.2 degrees 64/minute 16/minute 149/75 Weight Height 73.8 kg 1.62 m Jessica Cervantes 08/21/2024 9:[address] CAP scans in 8 weeks Labs same day RTC in 9 weeks Graeme Vazquez MD 08/21/2024 11:17 AM Signed NAME: Duc Austino CLINIC NO.: [id number] DATE OF SERVICE: August 21, 2024 [facility] Some elements in this clinic note that [...] - EGD/Colonoscopy: with Dr. Jacob Bear at [facility] Diverticulitis A. Duodenum, biopsy: - Duodenal [...] to suggest obstruction. 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 Given the imaging appearance and short-term development, these may be infectious/inflammatory in etiology. Therefore, would advise a shor (more content not included)...NormalLutheran Hospitalprehensive metabolic 2000 panelon 07-96-2112Beaerbv [Mass/Vol]4.1 g/dLNormal3.9-4.9CLakeHealth [facility]wood [facility] on above:Order Comment: Specimen Type: BLOOD SPECIMENOrdering Facility: [facility] Address:[address] [place], [place] [address]Performed By: #### 27048-1 ####[facility]IA [id number] [place], [place] [address]CZC [Catalytic activity/Vol]84 U/FLodnql44-867MegrgkfclCherrington Hospital on above:Order Comment: Specimen Type: BLOOD SPECIMENOrdering Facility: [facility] Address:[address], [place] [address]Performed By: #### 58908-6 ####[facility]CLIA [id number] [place], [place] [address]MFC [Catalytic activity/Vol]20 U/WJexayx41-08XbwdsasuqCherrington Hospital on above:Order Comment: Specimen Type: BLOOD SPECIMENOrdering Facility: [facility] Address:[address], [place] [address]Performed By: #### 87948-3 ####[facility]CLIA [id number] [place], [place] [address]Glqnw gap [Moles/Vol]9 mmol/LNormal8-15[facility] on above:Order Comment: Specimen Type: BLOOD SPECIMENOrdering Facility: [facility] Address:[address] [place], [place] [address]Performed By: #### 12197- 8 ####[facility]IA [id number] [facility] [place], [place] [address]YQY [Catalytic activity/Vol]28 U/SFdcayk91-45LbyjomvtkCherrington Hospital on above:Order Comment: Specimen Type: BLOOD SPECIMENOrdering Facility: [facility] Address:[address] [place], [place] [address]Performed By: #### 64331-8 ####[facility] LABCLIA [id number] [place], [place] [address]Lpyupvtrc [Mass/Vol]0.6 mg/dLNormal0.2-1.3CLakeHealth Beachwood Medical Center on above:Order Comment: Specimen Type: BLOOD SPECIMENOrdering Facility: [facility] Address:[address] [place], [place] [address]Performed By: #### 38835- 8 ####[facility]CLIA [id number] [facility] [place], [place] [address]Tvnnvpo [Mass/Vol]8.9 mg/dLNormal8.5-10.2CLakeHealth Beachwood Medical Center on above:Order Comment: Specimen Type: BLOOD SPECIMENOrdering Facility: [facility] Address:[address] [place], [place] [address]Performed By: #### 81009-3 ####[facility] LABCLIA [id number] [place], [place] [address]Lcfrtwsm [Moles/Vol]106 mmol/L Aarivo54-354FetsdpcblCherrington Hospital on above:Order Comment: Specimen Type: BLOOD SPECIMENOrdering Facility: [facility] Address:[address] [place], [place] [address]Performed By: #### 00337-3 ####[facility] LABCLIA [id number] [place] [address] CO2 [Moles/Vol]26 mmol/ASqtamn59-86YvdapvmvlCherrington Hospital on above: Order Comment: Specimen Type: BLOOD SPECIMENOrdering Facility: [facility] Address:[address] [place], [place] [address]Performed By: #### 01468- 8 ####[facility] LABCLIA [id number] [place], [place] [address]Gdsppxubcz [Mass/Vol]1.72 mg/dLHigh0.73-1.22[facility] on above:Order Comment: Specimen Type: BLOOD SPECIMENOrdering Facility: [facility] Address:[address] [place], [place] [address]Performed By: #### 16287-8 ####[facility] LABIA [id number] [place], [place] [address]Ewcqakodth and Glomerular filtration rate.predicted panel (S/P/Bld)38 mL/min/1.73m???Low>=60 [facility] on above:Order Comment: Specimen Type: BLOOD SPECIMENOrdering Facility: [facility] Address:[address] [place], [place] [address]Result Comment: Estimated Glomerular Filtration Rate (eGFR) is calculated using the 2020 CKD-EPI creatinine equation. This equation utilizes serum creatinine, sex, and age as parameters. The creatinine assay has traceable calibration to isotope dilution-mass spectrometry. Refer to KDIGO guidelines for clinical interpretation. In patients with unstable renal function, e.g. those with acute kidney injury, the eGFR may not accurately reflect actual GFR.Performed By: #### 26870-5 ####[facility] LABCLIA [id number] [place], [place] [address]Ujrptua [Mass/Vol]102 mg/dKFkay53-03KtxdvrnfnCherrington Hospital on above:Order Comment: Specimen Type: BLOOD SPECIMENOrdering Facility: [facility] Address:[address] [place], [place] [address]Result Comment: The [place] Diabetes Association (ADA) provides guidance for cutoff [...] Standards of Medical Care in Diabetes 2016, [place] [employer]. Diabetes Care. 2016.39(Suppl 1).Performed By: #### 28734-3 ####[facility] LABCLIA [id number] [place], [place] [address]Ypiqroagl [Moles/Vol]4.6 mmol/LNormal3.7-5.1CLakeHealth Beachwood [facility] Center on above:Order Comment: Specimen Type: BLOOD SPECIMENOrdering Facility: [facility] Address:[address] [place], [place] [address]Performed By: #### 47969-5 ####[facility] LABCLIA [id number] [place], [place] [address]Qzwvtcv [Mass/Vol]6.1 g/dLLow6.3-8.0[facility] on above:Order Comment: Specimen Type: BLOOD SPECIMENOrdering Facility: [facility] Address:[address] [place], [place] [address]Performed By: #### 61036- 8 ####[facility] LABCLIA [id number] [place], [place] [address]Sehkpm [Moles/Vol]141 mmol/QWvczjo722-131OdpwldpwrCherrington Hospital on above:Order Comment: Specimen Type: BLOOD SPECIMENOrdering Facility: [facility] Address:[address] [place], [place] [address]Performed By: #### 34966-5 ####[facility] LABCLIA [id number] [place], [place] [address]Jrdr nitrogen [Mass/Vol]34 mg/dLHigh9-24[facility] on above:Order Comment: Specimen Type: BLOOD SPECIMENOrdering Facility: [facility] Address:[address] [place], [place] [address]Performed By: #### 83479-2 ####[facility] LABCLIA [id number] [place] [address] Cortis SerPl-mCncon 22-64-4119Tlwnidwb [Mass/Vol]6.0 ug/dLNormal4.8-19.5 [facility] on above:Order Comment: Specimen Type: BLOOD SPECIMENOrdering Facility: [facility] Address:[address] [place], [place] [address]Result Comment: Provided reference range is from 6-10 AM sample collection time. Cortisol Reference Range: 6-10 AM = 4.8-19.5 ug/dL, 4-8 PM = 2.5-11.9 ug/dL Performed By: #### 3016-3, 2143-6 ####[facility] LABCLIA [id number] [facility] [id number] [facility] HbA1c (Bld)on 66-44-6597Ecmhzaz glucose Estimated from glycated hemoglobin (Bld) [Mass/Vol]97 mg/dLNormalCLakeHealth Beachwood Medical Center on above:Order Comment: Specimen Type: BLOOD SPECIMENOrdering Facility: [facility] Address:[address] [place], [place] [address]Result Comment: eAG: (Estimated average glucose) is a calculated value from HgbA1c and is representa tive of the average blood glucose level in the last 2-3 month period.Performed By: #### 86263-4 ####[facility] LABCLIA [id number] [place] [address] [place] MSAMIYLRzK1o (Bld) [Mass fraction]5.0 %Normal4.3-5.6CLakeHealth Beachwood [facility] on above:Order Comment: Specimen Type: BLOOD SPECIMENOrdering Facility: [facility] Address:[address] [place], [place] [address]Result Comment: [place] Diabetes Association guidelines indicate that patients with HgbA1c in the range 5.7-6.4% are at increased risk for development of diabetes, and intervention by lifestyle modification may be beneficial. HgbA1c greater or equal to 6.5% is considered diagnostic of diabetes.Performed By: #### 49392-4 ####[facility] [id number] [place] [address] [place] [facility] HOSPITALTS SerPl-aCncon 32-19-0229ITT Qn2.260 m[IU]/L Normal0.270-4.200[facility] on above:Order Comment: Specimen Type: BLOOD SPECIMENOrdering Facility: [facility] Address:[address] [place], [place] [address]Performed By: #### 3016-3, 2143-6 ####[facility] [id number] [place] [address] [place] AMERICACT ABD/PEL W IVCONon 69-79-7820XB ABD/PEL W IVCON* * *Final Report* * * DATE OF EXAM: Jun 29 2024 9:00AM [facility] [place] 0530 - CT ABD/PEL W IVCON / [...] performed concurrently and will be dictated separately. Laborer Syrup Machine (topogram) images: No additional findings. IMPRESSION: Stable [...] any questions regarding this interpretation, please call [phone]. If you are unable to reach us at the number above, please feel free to contact [facility] eRadiology at [phone]. [id number]_IDCSIACNNormalWyandot Memorial Hospital Abdomen and Pelvis W contrast [place] 35-40-1334KEIAFDMTSY: Stable CT examination the abdomen and pelvis [...] any questions regarding this interpretation, please call [phone]. If you are unable to reach us at the number above, please feel free to contact [facility] eRadiology at [phone].DIVISION OF RADIOLOGY* * *Final Report* * * DATE OF EXAM: Jun 29 2024 9:00AM [facility] [place] 0530 - CT ABD/PEL W IVCON / [...] performed concurrently and will be dictated separately. Laborer Syrup Machine (topogram) images: No additional findings. DIVISION OF RADIOLOGYProvider, [facility] [place] - 06/29/2024 * * *Final Report* * * DATE OF EXAM: Jun 29 2024 9:00AM [facility] [place] 0530 - CT ABD/PEL W IVCON / [...] performed concurrently and will be dictated separately. Laborer Syrup Machine (topogram) images: No additional findings. IMPRESSION IMPRESSION: [...] any questions regarding this interpretation, please call [phone]. If you are unable to reach us at the number above, please feel free to contact [facility] eRadiology at [phone]. [facility] CHEST W IVCONon 90-37-3875UU CHEST W IVCON* * *Final Report* * * DATE OF EXAM: Jun 29 2024 9:00AM [facility] [place] 0539 - CT CHEST W IVCON / [...] performed concurrently and will be dictated separately. Laborer Syrup Machine (topogram) images: No additional findings. IMPRESSION: 1. [...] any questions regarding this interpretation, please call [phone]. If you are unable to reach us at the number above, please feel free to contact [facility] eRadiology at [phone]. [id number]_IDCSIACNNormalWyandot Memorial Hospital Chest W contrast [place] 49-45-7534ZAWLGPCHYH: 1. Mild soft tissue prominence at the [...] any questions regarding this interpretation, please call [phone]. If you are unable to reach us at the number above, please feel free to contact [facility] at [phone].DIVISION OF RADIOLOGY* * *Final Report* * * DATE OF EXAM: Jun 29 2024 9:00AM [facility] [place] 0539 - CT CHEST W IVCON / [...] performed concurrently and will be dictated separately. Laborer Syrup Machine (topogram) images: No additional findings. DIVISION OF RADIOLOGYProvider, [facility] [place] - 06/29/2024 * * *Final Report* * * DATE OF EXAM: Jun 29 2024 9:00AM [facility] [place] 0539 - CT CHEST W IVCON / [...] performed concurrently and will be dictated separately. Laborer Syrup Machine (topogram) images: No additional findings. IMPRESSION IMPRESSION: [...] the report reviewed and electronically signed by: BERANNA JOHNSON MD on Jun 29 2024 10:21AM EST Thank you for allowing us to participate in the care of your patient. Should there be any questions regarding this interpretation, please call [phone]. If you are unable to reach us at the number above, please feel free to contact [facility] at [phone]. [facility] Panel InformationOrdered By: Ccf Provider on 06-29-2024 [facility] Panel Informationon 21-76-1029Uweuqsrcf Study observation (narrative)[facility] HospitalCNOVSPon 37-25-4544NPUTOCNzduf (SP) Office ([place]) JUAN JOSE AUSTIN ([id number]) 1940 M Date Time Provider Department 05/18/24 1:00 PM GRAEME VAZQUEZ During your visit today, we recorded the following information about you: Temperature Pulse Respiration Blood pressure 97.1 degrees 66/minute 16/minute 121/63 Weight Height 68.7 kg 1.62 m Graeme Vazquez MD 05/19/2024 11:18 AM Signed NAME: Juan Jose Austin NO.: [id number] DATE OF SERVICE: May 18, 2024 (Eve) [...] to suggest obstruction. 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 This is (more content not included)...Normal[facility] metabolic 2000 panelon 50-77-3276Pehvogb [Mass/Vol]4.1 g/dLNormal3.9-4.9CLakeHealth [facility] on above:Order Comment: Specimen Type: BLOOD SPECIMENOrdering Facility: [facility] Address:[address] [place], [place] [address]Performed By: #### 32928-6 ####[facility] LABCLIA [id number] [facility] [place], [place] [address]YXD [Catalytic activity/Vol]109 U/ZUcjmdf35-347NbcfxdazcCherrington Hospital on above:Order Comment: Specimen Type: BLOOD SPECIMENOrdering Facility: [facility] Address:[address] [place], [place] [address]Performed By: #### 52144-1 ####[facility] LABCLIA [id number] [place], [place] [address]DZY [Catalytic activity/Vol]34 U/YIwuexd90-27XwjgictfmCherrington Hospital on above:Order Comment: Specimen Type: BLOOD SPECIMENOrdering Facility: [facility] Address:[address] [place], [place] [address]Performed By: #### 16029- 8 ####[facility] LABCLIA [id number] [place], [place] [address]Hngvs gap [Moles/Vol]9 mmol/LNormal8-15[facility] on above:Order Comment: Specimen Type: BLOOD SPECIMENOrdering Facility: [facility] Address:[address] [place], [place] [address]Performed By: #### [id number] ####[facility] LABIA [id number] [place], [place] [address]UPS [Catalytic activity/Vol]33 U/EXmyqrh62-21MgefmqryyCherrington Hospital on above:Order Comment: Specimen Type: BLOOD SPECIMENOrdering Facility: [facility] Address:[address] [place], [place] [address]Performed By: #### 67474-3 ####[facility] LABCLIA [id number] [facility] [address] Bilirubin [Mass/Vol]0.7 mg/dLNormal0.2-1.3CLakeHealth Beachwood Medical Center on above:Order Comment: Specimen Type: BLOOD SPECIMENOrdering Facility: [facility] Address:[address] [place], [place] [address]Performed By: #### 25045-1 ####[facility] LABCLIA [id number] [place], [place] [address]Nzmhgov [Mass/Vol]9.4 mg/dLNormal8.5-10.2CLakeHealth Beachwood Medical Center on above:Order Comment: Specimen Type: BLOOD SPECIMENOrdering Facility: [facility] Address:[address] [place], [place] [address]Performed By: #### 57316-0 ####[facility] LABCLIA [id number] [facility] [place], [place] [address]Wsiwzhrp [Moles/Vol]110 mmol/MLldd63-953CgkmvvfqpCherrington Hospital on above:Order Comment: Specimen Type: BLOOD SPECIMENOrdering Facility: [facility] Address:[address] [place], [place] [address]Performed By: #### 31869- 8 ####[facility] LABCLIA [id number] [facility] [place]ON [place], [place] [address]WX9 [Moles/Vol]27 mmol/UJipkdw69-48HkxidauqsCherrington Hospital on above:Order Comment: Specimen Type: BLOOD SPECIMENOrdering Facility: [facility] Address:[address] [place], [place] [address]Performed By: #### 98347-9 ####[facility] LABCLIA [id number] SERGEY [place], [place] [address]Vxtzyieigz [Mass/Vol]1.89 mg/dL High0.73-1.22[facility] ClevelandComment on above:Order Comment: Specimen Type: BLOOD SPECIMENOrdering Facility: [facility] Address:[address] [place], [place] [address]Performed By: #### 96894-4 ####[facility] LABCLIA [id number] [place] [address] Creatinine and Glomerular filtration rate.predicted panel (S/P/Bld)34 mL/min/1.73m???Low>=60[facility] on above:Order Comment: Specimen Type: BLOOD SPECIMENOrdering Facility: [facility] Address:[address] [place], [place] [address]Result Comment: Estimated Glomerular Filtration Rate (eGFR) is calculated using the 2020 CKD-EPI creatinine equation. This equation utilizes serum creatinine, sex, and age as parameters. The creatinine assay has traceable calibration to isotope dilution-mass spectrometry. Refer to KDIGO guidelines for clinical interpretation. In patients with unstable renal function, e.g. those with acute kidney injury, the eGFR may not accurately reflect actual GFR.Performed By: #### 94510-4 ####[facility] LABCLIA [id number] [place] [address] Glucose [Mass/Vol]111 mg/gXDrgs28-57OzhwfglsmCherrington Hospital on above: Order Comment: Specimen Type: BLOOD SPECIMENOrdering Facility: [facility] Address:[address] [place] [address]Hvswja Comment: The [place] Diabetes Association (ADA) provides guidance for cutoff [...] Standards of Medical Care in Diabetes 2016, [place] Diabetes Association. Diabetes Care. 2016.39(Suppl 1).Performed By: #### 06323-5 ####[facility] LABCLIA [id number] [place], [place] [address]Pmftfffjs [Moles/Vol]4.5 mmol/LNormal3.7-5.1CLakeHealth Beachwood Medical Center on above:Order Comment: Specimen Type: BLOOD SPECIMENOrdering Facility: [facility] Address:[address] [place], [place] [address]Performed By: #### 21766-0 ####[facility] LABCLIA [id number] [place], [place] [address]Tgfvumf [Mass/Vol]6.3 g/dLNormal6.3-8.0[facility] on above:Order Comment: Specimen Type: BLOOD SPECIMENOrdering Facility: [facility] Address:[address] [place], [place] [address]Performed By: #### 56162- 8 ####[facility] LABCLIA [id number] [place], [place] [address]Jstmbk [Moles/Vol]146 mmol/QNlbr837-991EbiyccmvaCherrington Hospital on above:Order Comment: Specimen Type: BLOOD SPECIMENOrdering Facility: [facility] Address:[address] [place], [place] [address]Performed By: #### 42096-3 ####[facility] LABIA [id number] [place], [place] [address]Hiqt nitrogen [Mass/Vol]43 mg/dLHigh9-24[facility] on above:Order Comment: Specimen Type: BLOOD SPECIMENOrdering Facility: [facility] Address:[address] [place], [place] [address]Performed By: #### 03089-1 ####[facility] LABIA [id number] [place] [address] TSH SerPl-aCncon 17-33-8526GCS Qn2.600 m[IU]/LNormal0.270-4.200[facility] on above:Order Comment: Specimen Type: BLOOD SPECIMENOrdering Facility: [facility] Address:[address] [place] [id number] By: #### 3016-3 ####[facility] LABCLIA [id number] [place] [id number], [place] [address] [place] Basic Metabolic Panelon 47-41-4556Dnyvo gap [Moles/Vol]7 mmol/LLow9 - 17 mmol/L [facility] [employer] UK HEALTHCARECalcium [Mass/Vol]8.2 mg/dLLow8.6 - 10.4 mg/dLB[facility] HeysanChloride [Moles/Vol]107 mmol/L98 - 107 mmol/LBON [facility] HeysanCO2 [Moles/Vol]27 mmol/L20 - 31 mmol/[facility] Heysan Creatinine [Mass/Vol]1.6 mg/dLHigh0.7 - 1.2 mg/dLB[facility] HeysanEst, Glom Filt Ntqj79Ada- PINFBON [facility] on above: These results are not intended [...] that affects renal tubular secretion. Glucose [Mass/Vol]117 mg/bHWavf27 - 99 mg/dLB[facility] Heysan Interpretation and review of laboratory resultsAbnormalB[facility] Heysan Potassium [Moles/Vol]3.7 mmol/L3.7 - 5.3 mmol/LBON [facility] HeysanSodium [Moles/Vol]141 mmol/L135 - 144 mmol/LBON [facility]ALTH[facility]ARE CENTERNanorexUrea nitrogen [Mass/Vol]26 mg/dLHigh8 - 23 mg/dLB[facility] HeysanUrea nitrogen/Creatinine [Mass ratio]16 mg/mg9 - 20BON MERCY SOUTHWESTPostling UK HEALTHCAREBON SECTerra Motors UK HEALTHCAREBasic Metabolic Profon 09-58-5102Huqsg gap [Moles/Vol]7 mmol/LLow9-17[facility] Joseph Warren HospitalComment on above:Performed By: #### TIP, TROPI, BMP #### [address] [place] [address] Bilingual Social Worker: DRAKE Olivas/CRE Wtjnp20Ydfwwk1-54Uxyth [facility] Comment on above:Performed By: #### TIP TROPI, BMP #### [address] [place] [address] Bilingual Social Worker: SHEREE Olivasalcium [Mass/Vol]8.2 mg/dLLow8.6-10.4[facility] Joseph Warren HospitalComment on above:Performed By: #### TIP TROPI, BMP #### [address] [place] [address] Bilingual Social Worker: SHEREE Olivashloride [Moles/Vol]107 mmol/AXckemo91-878Xstpq [facility] HospitalComment on above:Performed By: #### TIP TROPI, BMP #### [address] [place] [address] Bilingual Social Worker: SHEREE OlivasO2 [Moles/Vol]27 mmol/QPvbutu53-63KagksMercy Health St. Joseph Warren HospitalComment on above:Performed By: #### TIP TROPI, BMP #### [address] [place] [address] Bilingual Social Worker: SHEREE Olivasreatinine [Mass/Vol]1.6 mg/dLHigh0.7-1.2Mer[facility] Campbell HospitalComment on above:Performed By: #### TIP TROPI, BMP #### [address] [place], [place] [address] Bilingual Social Worker: Augusto Sidhu MDGFR/1.73 sq M.predicted among non-blacks MDRD (S/P/Bld) [Vol rate/Area]42 mL/min/{1.73_m2}Low>60Mer[facility] Campbell HospitalComment on above:Result Comment: These results are [...] secretion.Performed By: #### YOHAN WHELAN, BMP #### [address] [place], [place] [address] Bilingual Social Worker: Augusto Sidhu MDGlucose [Mass/Vol]117 mg/gLGbjk13-30Yihle [facility] Memorial HospitalComment on above:Performed By: #### YOHAN WHELAN BMP #### [address] [place], [place] [address] Bilingual Social Worker: JEREMY Olivasotassium [Moles/Vol]3.7 mmol/LNormal3.7-5.3Mer[facility] Campbell HospitalComment on above:Performed By: #### YOHAN WHELAN BMP #### [address] [place], [place] [address] Bilingual Social Worker: ROCIO Olivasodium [Moles/Vol]141 mmol/RGdfkcr458-986BjfmsMercy Health St. Joseph Warren HospitalComment on above:Performed By: #### YOHAN WHELAN, BMP #### [address] [place], [place] [address] Bilingual Social Worker: Augusto Sidhu MDUrea nitrogen [Mass/Vol]26 mg/dLHigh8-23MerSaint Francis Hospital & Medical CenterComment on above:Performed By: #### YOHAN WHELAN, BMP #### [address] [place], [place] [address] Bilingual Social Worker: Augusto Sidhu [facility] with Auto Differentialon 00-71-3722Xskngnyfx (Bld) [#/Vol]0.07 10*3/uLBON [facility]RS TRIHEALTHY HEALTHBasophils/100 WBC (Bld)1 %0 - 2 %[facility] HEALTHEosinophils (Bld) [#/Vol]0.45 10*3/uLHighBON [facility] MERCY HEALTHEosinophils/100 WBC (Bld)5 %High1 - 4 %[facility] Erythrocyte distribution width (RBC) [Ratio]14.2 %11.8 - 14.4 %[facility] TRIHEALTHY HEALTHHematocrit (Bld) [Volume fraction]36.5 %Low40.7 - 50.3 %[facility] HEALTHHemoglobin (Bld) [Mass/Vol]11.9 g/dLLow13.0 - 17.0 g/dLBON SECOURS AULTMAN HOSPITALImmature granulocytes (Bld) [#/Vol]0.03 10*3/uLBON [facility] Immature granulocytes/100 WBC (Bld)0 %0B[facility] HEALTHInterpretation and review of laboratory resultsAbnormalBON SECOURS TRIHEALTHY HEALTHLymphocytes/100 WBC (Bld)10 %Low24 - 43 %[facility]ALTH[facility] HEALTHLymphocytes/100 WBC (Bld)0.82 % LowBON SECOURS [facility] HOSPITALH (RBC) [Entitic mass]27.7 pg25.2 - 33.5 pgBON SECOURS OHIOHEALTH [facility] METHODIST HOSPITALHC (RBC) [Mass/Vol]32.6 g/dL28.4 - 34.8 g/dLBON SECOURS OHIOHEALTH DUBL[facility] METHODIST HOSPITALV (RBC) [Entitic vol]85.1 fL82.6 - 102.9 fLBON SECOURS TRIHEALTHY HEALTHMonocytes/100 WBC (Bld)8 %3 - 12 %[facility] HEALTHMonocytes/100 WBC (Bld)0.63 %[facility]ALTH[facility] HEALTHNeutrophils/100 WBC (Bld)76 %High36 - 65 %[facility]ALTH[facility] HEALTHNucleated RBC/100 WBC (Bld) [Ratio]0.0 %0.0 per 100 WBC [facility] TRIHEALTHY HEALTHPlatelet mean volume (Bld) [Entitic vol]8.5 fL8.1 - 13.5 fLBON SECOURS MERCY HEALTHPlatelets (Bld) [#/Vol]290 10*3/uLBON MADISON HEALTHRBC (Bld) [#/Vol]4.29 10*6/uL4.21 - 5.77 m/[facility] Segmented neutrophils/100 WBC (Bld)6.45 %BON MADISON HEALTHWBC other (Bld) [#/Vol]8.5BON [facility] HOSPITALCBC with Diffon [id number]. Basophil0.07 k/uLNormal0.00-0.20[facility] HospitalComment on above:Performed By: #### TIP TROPI, BMP #### [address] [place] [id number] Bilingual Social Worker: Trevor Olivas.Imm.Granulocyte0.03 k/uLNormal0.00-0.30[facility] HospitalComment on above:Performed By: #### TIP TROPI, BMP #### [address] [place], [place] [address] Bilingual Social Worker: Trevor Olivas.Neutrophil (Seg)6.45 k/uLNormal1.50-8.10[facility] HospitalComment on above:Performed By: #### TIP TROPI, BMP #### [address] [place], [facility]83 Bilingual Social Worker: Augusto Sidhu MDBasophils/100 WBC (Bld)1 %Normal0-2MOhioHealth Mansfield Hospital HospitalComment on above:Performed By: #### TIP TROPI, BMP #### [address] [place], [facility]83 Bilingual Social Worker: Augusto Sidhu MDEosinophils (Bld) [#/Vol]0.45 10*3/uLHigh0.00-0.44 [facility] HospitalComment on above:Performed By: #### TIP, TROPI, BMP #### [address] [place], [place] [address] Bilingual Social Worker: Augusto Sidhu MDEosinophils/100 WBC (Bld)5 %High1-4[facility] Warren HospitalComment on above:Performed By: #### CDP, TROPI, BMP #### [address] [place] [address] Bilingual Social Worker: Augusto Sidhu MDErythrocyte distribution width (RBC) [Ratio]14.2 % Forzmc40.8-14.4[facility] HospitalComment on above:Performed By: #### TIP TROPI, BMP #### [address] [place] [address] Bilingual Social Worker: Augusto Sidhu MDHematocrit (Bld) [Volume fraction]36.5 %Low 40.7-50.3[facility] HospitalComment on above:Performed By: #### TIP TROPI, BMP #### [address] [place], [place] [address] Bilingual Social Worker: Augusto Sidhu MDHemoglobin (Bld) [Mass/Vol]11.9 g/dLLow13.0-17.[address] [facility] HospitalComment on above:Performed By: #### TIP TROPI, BMP #### [address] [place], [place] [address] Bilingual Social Worker: Augusto Sidhu MDImmature granulocytes/100 WBC (Bld)0 %Vrpkts4Zidso [facility] HospitalComment on above:Performed By: #### TIP, TROPI, BMP #### [address] [place] [address] Bilingual Social Worker: Augusto Sidhu MDLymphocytes (Bld) [#/Vol]0.82 10*3/uLLow1.10-3.[address] [facility] HospitalComment on above:Performed By: #### TIP, TROPI, BMP #### [address] [place] [address] Bilingual Social Worker: Gay Olivasmphocytes/100 WBC (Bld)10 %Emy52-84Xgvzx [facility] HospitalComment on above:Performed By: #### TIP, TROPI, BMP #### [address] [place], [place] [address] Bilingual Social Worker: DANDRE Olivas (RBC) [Entitic mass]27.7 ixVrwtzx42.2-33.5 [facility] HospitalComment on above:Performed By: #### PEGGY WHELANI, BMP #### [address] [place], [place] [address] Bilingual Social Worker: DANDRE OlivasC (RBC) [Mass/Vol]32.6 g/eVSvpqti62.4-34.8[facility] HospitalComment on above:Performed By: #### TIP TROPI, BMP #### [address] [place] [address] Bilingual Social Worker: LORNA OlivasCV (RBC) [Entitic vol]85.1 fGGbxdes59.6-102.9 [facility] HospitalComment on above:Performed By: #### TIP TROPI, BMP #### [address] [place] [address] Bilingual Social Worker: LORNA Olivasonocytes (Bld) [#/Vol]0.63 10*3/uLNormal0.10-1.20 [facility] HospitalComment on above:Performed By: #### TIP, TROPI, BMP #### [address] [place], [place] [address] Bilingual Social Worker: LORNA Olivasonocytes/100 WBC (Bld)8 %Normal3-12[facility] HospitalComment on above:Performed By: #### TIP, TROPI, BMP #### [facility] [address] [place] [address] Bilingual Social Worker: Lilly Olivas (Seg)76 %Bprf45-33IkrpnMercy Health St. [facility] Comment on above:Performed By: #### CDP, TROPI, BMP #### [address] [place] [address] Bilingual Social Worker: NAYELI Olivas Automated0.0 per [address] [facility] Warren HospitalComment on above:Performed By: #### TIP, TROPI, BMP #### [address] [place] [address] Bilingual Social Worker: Micah Olivas mean volume (Bld) [Entitic vol]8.5 fL Normal8.1-13.5[facility] HospitalComment on above:Performed By: #### TIP, TROPI, BMP #### [address] [place] [address] Bilingual Social Worker: Vasquez Olivas (Bld) [#/Vol]290 10*3/rNQqbrqb936-[address] [facility] HospitalComment on above:Performed By: #### TIP, TROPI, BMP #### [address] [place] [address] Bilingual Social Worker: ABEL Olivas (Bld) [#/Vol]4.29 10*6/uLNormal4.21-5.77[facility] HospitalComment on above:Performed By: #### TIP, TROPI, BMP #### [address] [place], [place] [address] ([address] Bilingual Social Worker: PANDA Olivas (Bld) [#/Vol]8.5 10*3/uLNormal3.5-11.3MFlower HospitalComment on above:Performed By: #### CDP, TROPI, [facility] #### [facility] [address] [place] [address] Bilingual Social Worker: JON Olivas CHEST PULMONARY EMBOLISM W CONTRASTon 17-29-1011DM CHEST PULMONARY EMBOLISM W CONTRASTEXAMINATION: CTA OF [...] by: Venus Dumont MD 03/22/24 Final resultNormalMercy [facility] Memorial Hospital1. No evidence of pulmonary embolism or [...] No acute bone or soft tissue abnormality. [facility] Venus Holcomb MD - 03/22/2024 EXAMINATION: [...] and ingested material distension of the stomach. [facility] [employer] Gifts ProjectRadiology Study observation (narrative)[facility] CENTERTerra Motors UK HEALTHCARECT CHEST PULMONARY EMBOLISM W CONTRASTOrdered By: Venus Dumont on 80-28-7138XJT [employer] Work Phone: [phone]-Iwlvh Teston [id number]-Dimer Test1.08 ug/mL FEU High0.00-0.59[facility] on above:Result Comment: When combined with [...] patients with distal DVT.Performed By: #### VITALY ####[address] [place] [address] lab Director: Augusto Sidhu MDD-Dimer, Quantitativeon 65-65-4421Sfuebw D-dimer FEU (PPP) [Mass/Vol]1.08[facility] on above: When combined with a low [...] DVT. Interpretation and review of laboratory resultsAbInova Fair Oaks HospitaleBOOK Initiative [place] XR Chest AP single viewon 60-40-8639It acute airspace disease identified. [facility] CONSOLIDATEDEXAMINATION: ONE XRAY VIEW OF THE [...] Surgical clips project over the mid abdomen. [facility] Benji Phelan MD - 03/22/2024 EXAMINATION: [...] abdomen. IMPRESSION: No acute airspace disease identified. [facility] CENTERColey Pharmaceutical Group Molecular BiometricsRadiology Study observation (narrative)[facility] [employer] Molecular BiometricsFranciscan Health Mooresvilleflaregames XR Chest AP single viewOrdered By: Benji Castro on [id number] SECColey Pharmaceutical Group Molecular Biometrics Work Phone: Troponinon 70-51-4916Tmbuilliaiernx and review of laboratory resultsAbnormalMARTINSVILLE MEMORIAL HOSPITALTroponin I.cardiac High sensitivity method [Mass/Vol]69 ng/LCritically high0 - 22 ng/LBON MADISON HEALTHComment on above:High Sensitivity Troponin values cannot be compared with other Troponin methodologies.[facility]ART[facility] MEMORIAL HOSPITALTroponin, High Sens69 ng/L Critically high0-22[facility] Warren HospitalComascension genesys hospital on above:Result Comment: High Sensitivity Troponin values cannot be compared with other Troponin methodologies.Performed By: #### TROPI ####[facility] [place] [address] Lab Director: Augusto Sidhu MD Interpretation and review of laboratory resultsAbnoBon Secours St. Francis Medical Center Troponin I.cardiac High sensitivity method [Mass/Vol]73 ng/LCritically high0 - 22 ng/LBON [facility]ISON HEALTHComascension genesys hospital on above:High Sensitivity Troponin values cannot be compared with other Troponin methodologies.[facility] Troponin, High Sens73 ng/LCritically high0-22[facility] HospitalComascension genesys hospital on above:Result Comment: High Sensitivity Troponin values cannot be compared with other Troponin methodologies.Performed By: #### CDP, TROPI, BMP #### [address] [place] [address] Bilingual Social Worker: MALORIE Olivas CHEST PORTABLEon 64-50-4568TB CHEST PORTABLE EXAMINATION: ONE XRAY VIEW OF [...] Signed by: Benji Castro MD 03/22/24 Final resultNoBucyrus Community Hospital Abdomen and Pelvis W contrast [place] [id number]: 1. Stable appearance of geographic area of [...] any questions regarding this interpretation, please call [phone]. If you are unable to reach us at the number above, please feel free to contact [facility] at [phone].DIVISION OF RADIOLOGY* * *Final Report* * * DATE OF EXAM: Jan 24 2024 1:25PM [facility] [place] 0530 - CT ABD/PEL W IVCON / [...] images: No additional findings. DIVISION OF RADIOLOGYProvider, [facility] [place] - 01/27/2024 * * *Final Report* * * DATE OF EXAM: Jan 24 2024 1:25PM [facility] [place] 0530 - CT ABD/PEL W IVCON / [...] any questions regarding this interpretation, please call [phone]. If you are unable to reach us at the number above, please feel free to contact [facility] eRadiology at [phone]. [facility] Abdomen and Pelvis W contrast IVOrdered By: Ccf Provider on 42-10-8813Hgailioij Owatonna ClinicCT Chest W contrast [place] [id number] and review of laboratory resultsAbnormalCKing's Daughters Medical Center OhioRadiology ResultACTIONABLE AbnormalUc West Chester HospitalComment on above:This report contains an incidental [...] be communicated with the ordering provider via [employer] staff message or phone message by Imaging Support Services within 2 business days of report finalization. --END OF FINDING-- Algorithms for management of incidental imaging findings can be found on the [facility] Intranet Sharepoint site at: [email or web address]%20Incidental%20Findi ngs%20at%20Imaging/Forms/AllItems.aspx Transcribe Date/Time: Jan 27 2024 8:36A Dictated by: LIO OSORIO MD This examination was interpreted and the report reviewed and electronically signed by: LIO OSORIO MD on Jan 27 2024 8:50AM EST Thank you for allowing us to participate in the care of your patient. Should there be any questions regarding this interpretation, please call [phone]. If you are unable to reach us at the number above, please feel free to contact [facility] at [phone].DIVISION OF RADIOLOGY* * *Final Report* * * DATE OF EXAM: Jan 24 2024 1:25PM [facility] [place] 0539 - CT CHEST W IVCON / [...] images: No additional findings. DIVISION OF RADIOLOGYProvider, [facility] [place] - 01/27/2024 * * *Final Report* * * DATE OF EXAM: Jan 24 2024 1:25PM [facility] [place] 0539 - CT CHEST W IVCON / [...] be communicated with the ordering provider via [employer] staff message or phone message by Imaging Support Services within 2 business days of report finalization. --END OF FINDING-- Algorithms for management of incidental imaging findings can be found on the [facility] Intranet Sharepoint site at: [email or web address]%20Incidental%20Findi ngs%20at%20Imaging/Forms/AllItems.aspx Transcribe Date/Time: Jan 27 2024 8:36A Dictated by: LIO OSORIO MD This examination was interpreted and the report reviewed and electronically signed by: LIO OSORIO MD on Jan 27 2024 8:50AM EST Thank you for allowing us to participate in the care of your patient. Should there be any questions regarding this interpretation, please call [phone]. If you are unable to reach us at the number above, please feel free to contact [facility] eRadiology at [phone]. [facility] W Auto Differential panel (Bld)on 01-24-2024 Basophils (Bld) [#/Vol]0.03 10*3/uLNITriHealth Bethesda North Hospital ClinicBasophils/100 WBC (Bld) 0.4 %[facility] HospitalDifferential cell count method Nom (Bld)AutoCleveland ClinicEosinophils (Bld) [#/Vol]0.12 10*3/uLNINFUc West Chester HospitalEosinophils/100 WBC (Bld)1.6 %[facility] HospitalErythrocyte distribution width (RBC) [Ratio]17.1 % High11.5 - 15.0 %[facility] HospitalHematocrit (Bld) [Volume fraction]38.0 %Low39.0 - 51.0 %[facility] HospitalHemoglobin (Bld) [Mass/Vol]12.4 g/dLLow13.0 - 17.0 g/dL [facility] HospitalImmature granulocytes (Bld) [#/Vol]0.03 10*3/uLNINFUc West Chester HospitalImmature granulocytes/100 WBC (Bld)0.4 %[facility] HospitalInterpretation and review of laboratory resultsAbnormalCleveland ClinicLymphocytes (Bld) [#/Vol] 0.47 10*3/uLLowUc West Chester HospitalLymphocytes/100 WBC (Bld)6.5 %[facility] HospitalH (RBC) [Entitic mass]27.9 pg26.0 - 34.0 pgClevelMayo Clinic HospitalHC (RBC) [Mass/Vol] 32.6 g/dL30.5 - 36.0 g/dLUc West Chester HospitalMCV (RBC) [Entitic vol]85.6 fL80.0 - 100.0 fLCleveland ClinicMonocytes (Bld) [#/Vol]0.50 10*3/uLNINFUc West Chester Hospital Monocytes/100 WBC (Bld)6.9 %[facility] HospitalNeutrophils (Bld) [#/Vol]6.13 10*3/uLUc West Chester HospitalNeutrophils/100 WBC (Bld)84.2 %[facility] HospitalNucleated RBC (Bld) [#/Vol]NINFClevelSelect Medical Specialty Hospital - CantonNucleated RBC/100 WBC (Bld) [Ratio]0.0 % /100 WBCUc West Chester HospitalPlatelet mean volume (Bld) [Entitic vol]9.0 fL9.0 - 12.7 fLCleveliredell memorial hospital ClinicPlatelets (Bld) [#/Vol]206 10*3/uLUc West Chester HospitalRBC (Bld) [#/Vol]4.44 10*6/uL4.20 - 6.00 m/[facility] HospitalWBC (Bld) [#/Vol]7.28 10*3/uL [facility] HospitalComprehensive metabolic 2000 panelOrdered By: Skylar Orona on [id number] [Mass/Vol]3.1 g/dLLow3.9 - 4.9 g/dLMark Center ClinicALP [Catalytic activity/Vol]59 U/L38 - 113 U/LCleveland ClinicALT [Catalytic activity/Vol]20 U/L10 - 54 U/LCleveland ClinicAnion gap [Moles/Vol]7 mmol/LLow9 - 18 mmol/LCleveland ClinicAST [Catalytic activity/Vol]23 U/L14 - 40 U/LCleveland ClinicBilirubin [Mass/Vol]0.4 mg/dL0.2 - 1.3 mg/dLCleveland Clinic Calcium [Mass/Vol]8.4 mg/dLLow8.5 - 10.2 mg/dLMark Center ClinicChloride [Moles/Vol]108 mmol/LHigh97 - 105 mmol/LCleveland ClinicCO2 [Moles/Vol]30 mmol/L 22 - 30 mmol/LCleveland ClinicCreatinine [Mass/Vol]1.55 mg/dLHigh0.73 - 1.22 mg/dLMark Center ClinicGFR/1.73 sq M.predicted among non-blacks MDRD (S/P/Bld) [...] eGFRmay not accurately reflect actual GFR.Glucose [Mass/Vol]107 mg/rDZhfv56 - 99 mg/dLUc West Chester HospitalComment on above:The [place] Diabetes [employer] (ADA) provides guidance for cutoff [...] Standards of Medical Care in Diabetes 2016, [place] [employer]. Diabetes Care. 2016.39(Suppl 1). Interpretation and review of laboratory resultsAbnormalCleveland ClinicPotassium [Moles/Vol]3.7 mmol/L3.7 - 5.1 mmol/LCleveland ClinicProtein [Mass/Vol]4.7 g/dL Low6.3 - 8.0 g/dLMark Center ClinicSodium [Moles/Vol]145 mmol/ZUavv402 - 144 mmol/LCleveland ClinicUrea nitrogen [Mass/Vol]28 mg/dLHigh9 - 24 mg/dLShelby Memorial HospitalNo Panel Informationon 40-38-4726Gptovrxfw Study observation (narrative)[facility] Abdomen and Pelvis W contrast [place] 47-32-5911YYPBCLGTEC: 1. More conspicuous indeterminate 2.7 x 1.0 [...] any questions regarding this interpretation, please call [phone]. If you are unable to reach us at the number above, please feel free to contact [facility] eRadiology at [phone].DIVISION OF RADIOLOGY* * *Final Report* * * DATE OF EXAM: Aug 23 2023 10:44AM [facility] [place] 0530 - CT ABD/PEL W IVCON / [...] chest CT performed will be reported separately. Laborer Syrup Machine (topogram) images: No additional findings. DIVISION OF RADIOLOGYProvider, [facility] [place] - 08/24/2023 * * *Final Report* * * DATE OF EXAM: Aug 23 2023 10:44AM [facility] [place] 0530 - CT ABD/PEL W IVCON / [...] chest CT performed will be reported separately. Lab[employer] Sy[employer] Machine (topogram) images: No additional findings. IMPRESSION IMPRESSION: [...] any questions regarding this interpretation, please call [phone]. If you are unable to reach us at the number above, please feel free to contact [facility] eRadiology at [phone]. [facility] [place] [facility] Abdomen and Pelvis W contrast IVOrdered By: Ccf Provider on 51-30-7233Vtalmhkop ClinicCT Chest W contrast [place] 51-76-3723OTVTWHOYZD: 1. No evidence of intrathoracic metastases. 2. [...] any questions regarding this interpretation, please call [phone]. If you are unable to reach us at the number above, please feel free to contact [facility] eRadiology at [phone].DIVISION OF RADIOLOGY* * *Final Report* * * DATE OF EXAM: Aug 23 2023 10:44AM [facility] [place] 0539 - CT CHEST W IVCON / [...] CT scan report for the abdomen findings. Laborer Syrup Machine (topogram) images: No additional findings. DIVISION OF RADIOLOGYProvider, [facility] [place] - 08/24/2023 * * *Final Report* * * DATE OF EXAM: Aug 23 2023 10:44AM [facility] [place] 0539 - CT CHEST W IVCON / [...] CT scan report for the abdomen findings. Lab[employer] Sy[employer] Machine (topogram) images: No additional findings. IMPRESSION IMPRESSION: [...] any questions regarding this interpretation, please call [phone]. If you are unable to reach us at the number above, please feel free to contact [facility] eRadiology at [phone]. [facility] HospitalNo Panel Informationon 33-64-1078Rohlsrgug Study observation (narrative)[facility] Abdomen and Pelvis W contrast [place] 69-25-6011QZDZZEOLBU: 1. New indeterminate 5 mm enhancing focus [...] any questions regarding this interpretation, please call [phone]. If you are unable to reach us at the number above, please feel free to contact [facility] eRadiology at [phone].DIVISION OF RADIOLOGY* * *Final Report* * * DATE OF EXAM: May 31 2023 10:16AM [facility] [place] 0530 - CT ABD/PEL W IVCON / [...] chest CT performed will be reported separately. Laborer Syrup Machine (topogram) images: No additional findings. DIVISION OF RADIOLOGYProvider, [facility] [place] - 06/01/2023 * * *Final Report* * * DATE OF EXAM: May 31 2023 10:16AM [facility] [place] 0530 - CT ABD/PEL W IVCON / [...] chest CT performed will be reported separately. Laborer Syrup Machine (topogram) images: No additional findings. IMPRESSION IMPRESSION: [...] any questions regarding this interpretation, please call [phone]. If you are unable to reach us at the number above, please feel free to contact [facility] eRadiology at [phone]. [facility] Abdomen and Pelvis W contrast IVOrdered By: Ccf Provider on 39-73-4793Rjhtkovik ClinicCT Chest W contrast [place] 56-67-1770DZXIIEDZBZ: 1. No evidence of intrathoracic metastases. 2. [...] any questions regarding this interpretation, please call [phone]. If you are unable to reach us at the number above, please feel free to contact [facility] eRadiology at [phone].DIVISION OF RADIOLOGY* * *Final Report* * * DATE OF EXAM: May 31 2023 10:16AM [facility] [place] 0539 - CT CHEST W IVCON / [...] CT scan report for the abdomen findings. Laborer Syrup Machine (topogram) images: No additional findings. DIVISION OF RADIOLOGYProvider, [facility] [place] - 06/01/2023 * * *Final Report* * * DATE OF EXAM: May 31 2023 10:16AM [facility] [place] 0539 - CT CHEST W IVCON / [...] CT scan report for the abdomen findings. Laborer Syrup Machine (topogram) images: No additional findings. IMPRESSION IMPRESSION: [...] any questions regarding this interpretation, please call [phone]. If you are unable to reach us at the number above, please feel free to contact [facility] eRadiology at [phone]. [facility] HospitalNo Panel Informationon 11-11-6698Bzzohcpml Study observation (narrative)[facility] Hospitalltation Noteon 04-26-2023 Consultation [id number]#1.00CD:[address] [place], [place] [address]BNPon 16-61-2584Hltfaxiuimw peptide B (Bld) [Mass/Vol] 1490.0 pg/mLNormal<=1,800.0The [facility] - CincinnatiComment on above:Performed By: #### CK, HSTROPN, CMP, BNP #### [facility] [address] [place] [address] Dr. Tan Villagomez AUTO DIFFon 94-00-8371RACF #0.1 103/ulNormal0.0-0.1The [facility] - CincinnatiComment on above:Performed By: #### CK, HSTROPN, CMP, BNP #### [facility] [address] [address] [address] Yilan ChangBasophils/100 WBC (Bld)0.9 %Normal0.2-2.0The [facility] Comment on above:Performed By: #### CK, HSTROPN, CMP, BNP #### [facility] [address] [place] [address] Dr. Tan Ram #0.1 103/ulNormal0.0-0.7The [facility] - CincinnatiComment on above: Performed By: #### CK, HSTROPN, CMP, BNP #### [facility] [address] [place] [address] Dr. Tan Santososinophils/100 WBC (Bld)1.6 %Normal0.9-7.0The [facility] Comment on above:Performed By: #### CK, HSTROPN, CMP, BNP #### [facility] [address] [place] [address] Dr. Tan Santosrythrocyte distribution width (RBC) [Ratio]14.7 %Cmolgd78.0-15.0 The [facility] - CincinnatiComment on above:Performed By: #### CK, HSTROPN, CMP, BNP #### [facility] [address] [place] [address] Dr. Tan OliverosHematocrit (Bld) [Volume fraction]38.9 %Critically low42.0-54.0 The [facility] - CincinnatiComment on above:Performed By: #### CK, HSTROPN, CMP, BNP #### [facility] [address] [place] [address] Dr. Tan OliverosHemoglobin (Bld) [Mass/Vol]12.8 g/dLCritically low14.0-18.0The [facility] CincinnatiComment on above:Performed By: #### CK, HSTROPN, CMP, BNP #### [facility] [address] [place] [address] Dr. Tan OliverosIG #0.02 10e3/ulNormal0.00-0.03The [facility] CincinnatiComment on above:Performed By: #### CK, HSTROPN, CMP, BNP #### [facility] [address] [address] [address] Tan Panchal %0.3 %Normal0.0-0.5The [facility] - CincinnatiComment on above: Performed By: #### CK, HSTROPN, CMP, BNP #### [facility] [address] [address] [address] Tan Armstrong #0.7 103/ulCritically low1.2-3.8The [facility] Comment on above:Performed By: #### CK, HSTROPN, CMP, BNP #### [facility] [address] [place] [address] Dr. Tan Singletonhocytes/100 WBC (Bld)10.4 %Critically low20.5-60.0The [facility] - CincinnatiComment on above:Performed By: #### CK, HSTROPN, CMP, BNP #### [facility] [address] [place] [address] Dr. Tan BrizuelaUAL DIFF REQNONormalThe [facility] - CincinnatiComment on above: Performed By: #### CK, HSTROPN, CMP, BNP #### [facility] [address] [place] [address] Dr. Tan Duarte (RBC) [Entitic mass]27.2 fnZgxfeu04.9-34.0The [facility] - CincinnatiComment on above:Performed By: #### CK, HSTROPN, CMP, BNP #### [facility] [address] [place] [address] Dr. Tan Duarte (RBC) [Mass/Vol]32.9 g/wZVogcbv88.9-35.2The [facility] - CincinnatiComment on above:Performed By: #### CK, HSTROPN, CMP, BNP #### [facility] [address] [place] [address] Dr. Tan Duarte (RBC) [Entitic vol]82.8 eCCenrha07.0-94.0The [facility] - CincinnatiComment on above:Performed By: #### CK, HSTROPN, CMP, BNP #### [facility] [address] [place] [address] Dr. Tan Torres #0.4 103/ulNormal0.3-0.8The [facility] CincinnatiComment on above:Performed By: #### CK, HSTROPN, CMP, BNP #### [facility] [address] [place] [address] Dr. Tan Riveraocytes/100 WBC (Bld)5.8 %Normal1.7-12.0The [facility] Comment on above:Performed By: #### CK, HSTROPN, CMP, BNP #### [facility] [address] [place] [address] Dr. Tan Goode #5.2 103/ulNormal1.4-6.5The [facility] CincinnatiComment on above:Performed By: #### CK, HSTROPN, CMP, BNP #### [facility] [address] [place] [address] Dr. Tan Sullivanutrophils/100 WBC (Bld)81.0 %Critically high43.0-75.0The [facility] - CincinnatiComment on above:Performed By: #### CK, HSTROPN, CMP, BNP #### [facility] [address] [place] [address] Dr. Tan Murray mean volume (Bld) [Entitic vol]9.9 fLNormal9.5-13.5The [facility] CincinnatiComment on above:Performed By: #### CK, HSTROPN, CMP, BNP #### [facility] [address] [place] [address] Dr. Tan OliverosPLT198 103/ftYojome567-738Uri [facility] - CincinnatiComment on above: Performed By: #### CK, HSTROPN, CMP, BNP #### [facility] [address] [place] [address] Dr. Tan OliverosRBC4.70 106/ulNormal4.70-6.10The [facility] CincinnatiComment on above:Performed By: #### CK, HSTROPN, CMP, BNP #### [facility] [address] [address] [address] Tan OliverosWBC6.4 103/ulNormal4.0-11.0The [facility] - CincinnatiComment on above: Performed By: #### CK, HSTROPN, CMP, BNP #### [facility] [address] [address] [address] Tan Bryant 45-83-3425PX [Catalytic activity/Vol]152 U/KPdpxdq84-794Ktf [facility] CincinnatiComment on above:Performed By: #### CK, HSTROPN, CMP, BNP #### [facility] [address] [address] [address] Tan Tomlin 14(COMP METB)on 06-77-2186Otfxdpp [Mass/Vol]3.5 g/dLNormal 3.4-5.0The [facility] CincinnatiComment on above:Performed By: #### CK, HSTROPN, CMP, BNP #### [facility] [address] [place] [address] Dr. Tan OliverosAlbumin/Globulin [Mass ratio]1.2 {ratio}NormalThe [facility] Selby General Hospitalment on above:Performed By: #### CK, HSTROPN, CMP, BNP #### [facility] [address] [place] [address] Dr. Tan Patel [Catalytic activity/Vol]69 U/OHoccqd59-949Fnd [facility] CincinnatiComment on above:Performed By: #### CK, HSTROPN, CMP, BNP #### [facility] [address] [place] [address] Dr. Tan Kay [Catalytic activity/Vol]21 U/YOnqcgh01-72Ljh [facility] CincinnatiComment on above:Performed By: #### CK, HSTROPN, CMP, BNP #### [facility] [address] [place] [address] Dr. Tan Montesinos gap [Moles/Vol]14.6 mmol/LNormalThe [facility] Comment on above:Performed By: #### CK, HSTROPN, CMP, BNP #### [facility] [address] [address] [address] Tan OliverosAST [Catalytic activity/Vol]21 U/TXlfwnr28-24Gqb [facility] CincinnatiComment on above:Performed By: #### CK, HSTROPN, CMP, BNP #### [facility] [address] [place] [address] Dr. Tan OliverosBilirubin [Mass/Vol]0.5 mg/dLNormal0.2-1.0The [facility] Comment on above:Performed By: #### CK, HSTROPN, CMP, BNP #### [facility] [address] [place] [address] Dr. Tan OliverosCalcium [Mass/Vol]8.7 mg/dLNormal8.5-10.1[facility] Comment on above:Performed By: #### CK, HSTROPN, CMP, BNP #### [facility] [address] [place] [address] Dr. Tan OliverosChloride [Moles/Vol]107 mmol/PWoeftx19-600Udy [facility] Comment on above:Performed By: #### CK, HSTROPN, CMP, BNP #### [facility] [address] [place] [address] Dr. Tan OliverosCO2 [Moles/Vol]23.1 mmol/BHztzjm33.0-32.0[facility] Comment on above:Performed By: #### CK, HSTROPN, CMP, BNP #### [facility] [address] [place] [address] Dr. Tan OliverosCreatinine [Mass/Vol]2.31 mg/dLCritically high0.70-1.30The [facility] CincinnatiComment on above:Performed By: #### CK, HSTROPN, CMP, BNP #### [facility] [address] [place] [address] Dr. Maddox ChangEGFR-AF GAVABROZ68 mL/min/1.29m3Bjeyjaclya low>=60The [facility] CincinnatiComment on above:Performed By: #### CK, HSTROPN, CMP, BNP #### [facility] [address] [address] [address] Tan SantosGFR-NON AF DDOMNMHE95 mL/min/1.36q9Lzgfmhqtjz low>=60The [facility] CincinnatiComment on above:Performed By: #### CK, HSTROPN, CMP, BNP #### [facility] [address] [address] [address] Tan OliverosGlobulin (S) [Mass/Vol]2.8 g/dLNormalThe [facility] CincinnatiComment on above:Performed By: #### CK, HSTROPN, CMP, BNP #### [facility] [address] [address] [address] Tan OliverosGlucose [Mass/Vol]123 mg/dLCritically dlnm53-060Jjt [facility] CincinnatiComment on above:Performed By: #### CK, HSTROPN, CMP, BNP #### [facility] [address] [place] [address] Dr. Tan OliverosPotassium [Moles/Vol]4.7 mmol/LNormal3.5-5.1The [facility] Comment on above:Performed By: #### CK, HSTROPN, CMP, BNP #### [facility] [address] [address] [address] Tan OliverosProtein [Mass/Vol]6.3 g/dLCritically low6.4-8.2The [facility] CincinnatiComment on above:Performed By: #### CK, HSTROPN, CMP, BNP #### [facility] [address] [place] [address] Dr. Tan OliverosSodium [Moles/Vol]140 mmol/MWvyufy784-225Vmy [facility] Comment on above:Performed By: #### CK, HSTROPN, CMP, BNP #### [facility] [address] [place] [address] Dr. Tan OliverosUrea nitrogen [Mass/Vol]39.0 mg/dLCritically high7.0-18.0The [facility] CincinnatiComment on above:Performed By: #### CK, HSTROPN, CMP, BNP #### [facility] [address] [place], [place] [address] Dr. Tan OliverosUrea nitrogen/Creatinine [Mass ratio]16.9 mg/mgNoGood Samaritan HospitalComascension genesys hospital on above:Performed By: #### CK, HSTROPN, CMP, BNP #### [facility] [address] [place], [place] [address] Dr. Tan JosephOPODIMA, HIGH SENSITIVITYon 57-01-2298NOSZAX95.5 pg/mLNormal 4.0-76.1The [facility] CincinnatiComasc[facility] genesys hospital on above:Result Comment: CUT-OFF POINTS HAVE BEEN ESTABLISHED BASED ON THE FOURTH UNIVERSAL DEFINITIONS OF MYOCARDIAL INFARCTION. THE UPPER REFERENCE LIMIT (URL) OF TROPONIN, DEFINED THE 99TH PERCENTILE OF cTnI DISTRIBUTION IN A REFERENCE POPULATION, HAS BEEN CONFIRMED THE DECISION THRESHOLD FOR CA DIAGNOSIS.Performed By: #### CK, HSTROPN, CMP, BNP #### [facility] [address] [address] [address] Tan OliverosXR CHEST 2 Von 41-01-7258UO CHEST 2 VEXAM: XR CHEST 2 V HISTORY: SHORTNESS OF BREATH COMPARISON: 12/08/2022 TECHNIQUE: Chest X-ray, 2 views FINDINGS: Support devices: None. Lungs/pleura: No consolidation, effusion, or pneumothorax. Heart and mediastinum: Normal contours. Bones: No acute abnormality identified. Impression: No radiographic evidence of acute cardiopulmonary process. Electronically authenticated by: MIKE MARTÍNEZ Date: 2023-03-10 11:51[facility] CampusConsultation Noteon 79-64-4562Olxttelmerfr Note [id number]#[id number]:127NoalTrihealth Mccullough-Hyde Memorial HospitalCT Chest WO contraston 86-86-5861VINXRWUCJG: 1. Since 11/15/2022, resolution of bibasilar pleural [...] any questions regarding this interpretation, please call [phone]. If you are unable to reach us at the number above, please feel free to contact [facility] at [phone].DIVISION OF RADIOLOGY* * *Final Report* * * DATE OF EXAM: Jan 23 2023 3:11PM [facility] [place] 0541 - CT CHEST WO IVCON / [...] a few nonspecific noncalcified pulmonary nodules, with associate sales representative examples detailed as follows on [...] the right adrenal. Status post left nephrectomy. Laborer Syrup Machine (topogram) images: No additional findings. DIVISION OF RADIOLOGYProvider, [facility] [place] - 01/23/2023 * * *Final Report* * * DATE OF EXAM: Jan 23 2023 3:11PM [facility] [place] 0541 - CT CHEST WO IVCON / [...] a few nonspecific noncalcified pulmonary nodules, with associate sales representative examples detailed as follows on [...] the right adrenal. Status post left nephrectomy. Laborer Syrup Machine (topogram) images: No additional findings. IMPRESSION IMPRESSION: [...] any questions regarding this interpretation, please call [phone]. If you are unable to reach us at the number above, please feel free to contact [facility] eRadiology at [phone]. [facility] HospitalRadiology Study observation (narrative)[facility] Chest WO contrastOrdered By: Ccf Provider on 02-33-7531Aotzphwmy ClinicECHOCARDIO M/2D COMPLETEon 39-38-0803MTWLSTTURR M/2D COMPLETEPatient: JUAN JOSE AUSTINFloyd Exam Date: 01/11/2023 : 1940 Gender:M Ordering : DR SERGIO SNEED . Admission #: [id number] Family : DR KEVEN CASTANEDA M.D. Order #: [id number] CLICK HERE TO VIEW EXAM ECHOCARDIOGRAM REPORT [...] by: Brandie Michel M.D. on 01/11/2023 at 15:32[facility] CampusConsent for Procedure/Surgeryon 80-93-5184Rpmuide for Procedure/Surgery [id number]:127[facility] HospitalUrology Office/Clinic Noteon 46-06-5042Hmfajka Office/Clinic NoteHPI Staff Cystoscopy with right stent [...] [facility] [address], [place] [address]- Additional Instructions: PRN Patient Education I, Marisabel [...] 1 tab(s), O (more content not included)...Normal [facility] Memorial HospitalComment on above:Result Comment: Electronically Signed By: Jian RODRIGUEZ MD\.br\Date and Time Signed: 12/18/22 12:13 EST\.br\Electronically Co-Signed By: Marisabel Reeves.br\Date and Time Co- Signed: 12/18/22 12:12 ESTCBC AUTO DIFFon 04-31-4144JOKA #0.1 103/ulNormal 0.0-0.1The [facility] CincinnatiComment on above:Performed By: #### CK, HSTROPN, CMP, BNP #### [facility] [address] [address] [address] Tan OliverosBasophils/100 WBC (Bld)0.9 %Normal0.2-2.0The [facility] Comment on above:Performed By: #### CK, HSTROPN, CMP, BNP #### [facility] [address] [place] [address] Dr. Tan SantosO #0.2 103/ulNormal0.0-0.7The [facility] CincinnatiComment on above: Performed By: #### CK, HSTROPN, CMP, BNP #### [facility] [address] [place] [address] Dr. Tan Santososinophils/100 WBC (Bld)3.7 %Normal0.9-7.0The [facility] Comment on above:Performed By: #### CK, HSTROPN, CMP, BNP #### [facility] [address] [place] [address] Dr. Tan Santosrythrocyte distribution width (RBC) [Ratio]17.1 %Critically high 11.0-15.0The [facility] CincinnatiComment on above:Performed By: #### CK, HSTROPN, CMP, BNP #### [facility] [address] [place] [address] Dr. Tan OliverosHematocrit (Bld) [Volume fraction]38.5 %Critically low42.0-54.0 The [facility] CincinnatiComment on above:Performed By: #### CK, HSTROPN, CMP, BNP #### [facility] [address] [place] [address] Dr. Tan OliverosHemoglobin (Bld) [Mass/Vol]12.7 g/dLCritically low14.0-18.0The [facility] CincinnatiComment on above:Performed By: #### CK, HSTROPN, CMP, BNP #### [facility] [address] [place] [address] Dr. Tan OliverosIG #0.02 10e3/ulNormal0.00-0.03The [facility] - CincinnatiComment on above:Performed By: #### CK, HSTROPN, CMP, BNP #### [facility] [address] [address] [address] Tan Panchal %0.4 %Normal0.0-0.5The [facility] CincinnatiComment on above: Performed By: #### CK, HSTROPN, CMP, BNP #### [facility] [address] [address] [address] Tan Armstrong #0.7 103/ulCritically low1.2-3.8The [facility] Comment on above:Performed By: #### CK, HSTROPN, CMP, BNP #### [facility] [address] [address] [address] Tan Singletonhocytes/100 WBC (Bld)12.3 %Critically low20.5-60.0The [facility] CincinnatiComment on above:Performed By: #### CK, HSTROPN, CMP, BNP #### [facility] [address] [address] [address] Tan BrizuelaUAL DIFF REQNONormalThe [facility] CincinnatiComment on above: Performed By: #### CK, HSTROPN, CMP, BNP #### [facility] [address] [place] [address] Dr. Tan Duarte (RBC) [Entitic mass]26.1 yxTgabty53.9-34.0The [facility] CincinnatiComment on above:Performed By: #### CK, HSTROPN, CMP, BNP #### [facility] [address] [place] [address] Dr. Tan Duarte (RBC) [Mass/Vol]33.0 g/qOBhrton37.9-35.2The [facility] CincinnatiComment on above:Performed By: #### CK, HSTROPN, CMP, BNP #### [facility] [address] [place] [address] Dr. Tan Duaret (RBC) [Entitic vol]79.2 fLCritically low80.0-94.0The [facility] CincinnatiComment on above:Performed By: #### CK, HSTROPN, CMP, BNP #### [facility] [address] [address] [address] Tan Torres #0.4 103/ulNormal0.3-0.8The [place] HospitalComment on above:Performed By: #### CK, HSTROPN, CMP, BNP #### [facility] [address] [address] [address] Tan Riveraocytes/100 WBC (Bld)6.5 %Normal1.7-12.0The [facility] Comment on above:Performed By: #### CK, HSTROPN, CMP, BNP #### [facility] [address] [place] [address] Dr. Tan Goode #4.3 103/ulNormal1.4-6.5The [facility] CincinnatiComment on above:Performed By: #### CK, HSTROPN, CMP, BNP #### [facility] [address] [place] [address] Dr. Tan Cardosoophils/100 WBC (Bld)76.2 %Critically high43.0-75.0The [facility] CincinnatiComment on above:Performed By: #### CK, HSTROPN, CMP, BNP #### [facility] [address] [place] [address] Dr. Tan Murray mean volume (Bld) [Entitic vol]9.7 fLNormal9.5-13.5The [facility] CincinnatiComment on above:Performed By: #### CK, HSTROPN, CMP, BNP #### [facility] [address] [place] [address] Dr. Tan OliverosPLT199 103/bgAumhpw771-649Zbc [facility] CincinnatiComment on above: Performed By: #### CK, HSTROPN, CMP, BNP #### [facility] [address] [place] [address] Dr. Tan OliverosRBC4.86 106/ulNormal4.70-6.10The [facility] CincinnatiComment on above:Performed By: #### CK, HSTROPN, CMP, BNP #### [facility] [address] [place] [address] Dr. Tan OliverosWCHANTEL5.7 103/ulNormal4.0-11.0The [facility] CincinnatiComment on above: Performed By: #### CK, HSTROPN, CMP, BNP #### [facility] [address] [place] [address] Dr. Tan OliverosCULTURE URINEon [id number] URINECulture Observations: NO GROWTH.NormalKettering Health HamiltonComment on above:Performed By: #### CK, HSTROPN, CMP, BNP #### [facility] [address] [place] [address] Dr. Tan Mackay URINE PROFILEon 70-47-3679Ggrdlcplm Ql (U)NegativeNormal NEGATIVEThe [facility] CincinnatiComment on above:Performed By: #### CK, HSTROPN, CMP, BNP #### [facility] [address] [place] [address] Dr. Tan OliverosClarity (U)CLEARNormalCLEARThe [facility] CincinnatiComment on above: Performed By: #### CK, HSTROPN, CMP, BNP #### [facility] [address] [place] [address] Dr. Tan Spencer (U)LT. YELLOWNormalYELLOWKettering Health HamiltonComment on above:Performed By: #### CK, HSTROPN, CMP, BNP #### [facility] [address] [place] [address] Dr. Tan Holm micrscopic examination will be performed if indicated. NormalKettering Health HamiltonComment on above:Performed By: #### CK, HSTROPN, CMP, BNP #### [facility] [address] [place] [address] Dr. Tan OliverosGlucose Ql (U)NegativeNormalNEGATIVEThe [facility] CincinnatiComment on above:Performed By: #### CK, HSTROPN, CMP, BNP #### [facility] [address] [address] [address] Tan OliverosHemoglobin Ql (U)LARGEAbnormalNEGATIVEKettering Health Hamilton Comment on above:Performed By: #### CK, HSTROPN, CMP, BNP #### [facility] [address] [address] [address] Tan Stallingsones Ql (U)NegativeNormalNEGATIVEKettering Health HamiltonComment on above:Performed By: #### CK, HSTROPN, CMP, BNP #### [facility] [address] [address] [address] Tan MattsonOCYTESSMALLAbnormalNEGATIVEKettering Health HamiltonComment on above:Performed By: #### CK, HSTROPN, CMP, BNP #### [facility] [address] [place] [address] Dr. Tan Mendeztrite Ql (U)NegativeNormalNEGATIVEKettering Health HamiltonComment on above:Performed By: #### CK, HSTROPN, CMP, BNP #### [facility] [address] [address] [address] Tan OliverospH (U)6.0 [pH]Normal5-9K[facility]tering Health HamiltonComment on above: Performed By: #### CK, HSTROPN, CMP, BNP #### [facility] [address] [place] [address] Dr. Tan OliverosSPEC GRAVITY1.953Kacvwe1.005-<=1.025The [facility] CincinnatiComment on above:Performed By: #### CK, HSTROPN, CMP, BNP #### [facility] [address] [place] [address] Dr. Tan OliverosUA PROTEINNegativeNormalNEGATIVE/ TRACEThe [facility] Comment on above:Performed By: #### CK, HSTROPN, CMP, BNP #### [facility] [address] [address] [address] Tan Mejia MICRO INDINDICATEDNormalThe [facility] CincinnatiComment on above: Performed By: #### CK, HSTROPN, CMP, BNP #### [facility] [address] [address] [address] Tan Barretobilryley Qn (U)0.2 {Maged'U}/dLNormal0.2 - 1.0The [facility] CincinnatiComment on above:Performed By: #### CK, HSTROPN, CMP, BNP #### [facility] [address] [address] [address] Tan OliverosPOINT OF CARE GLUCOSEon 10-65-9173Cacgblt [Mass/Vol]114 mg/dL Critically klwv28-746Vtn [facility] CincinnatiComment on above:Performed By: #### CK, HSTROPN, CMP, BNP #### [facility] [address] [address] [address] Tan NickF CHEM 8 (BAS METB)on 95-55-5764Byxqd gap [Moles/Vol]13.2 mmol/LNormalThe [facility] CincinnatiComment on above:Performed By: #### HSTROPN, BMP #### [facility] [address] [address] [address] Tan OliverosCalcium [Mass/Vol]8.9 mg/dLNormal8.5-10.1[facility] Comment on above:Performed By: #### HSTROPN, BMP #### [facility] [address] [address] [address] Tan OliverosChloride [Moles/Vol]104 mmol/EAgonzr20-413Hyd [facility] Comment on above:Performed By: #### HSTROPN, BMP #### [facility] [address] [address] [address] Tan OliverosCO2 [Moles/Vol]27.1 mmol/KUwuiao02.0-32.0[facility] Comment on above:Performed By: #### HSTROPN, BMP #### [facility] [address] [address] [address] Tan OliverosCreatinine [Mass/Vol]2.11 mg/dLCritically high0.70-1.30The [place] HospitalComment on above:Performed By: #### HSTROPN, BMP #### [facility] [address] [address] [address] Tan SantosGFR-AF YKADSNIC95 mL/min/1.82s1Hhftzicmnu low>=60The [facility] CincinnatiComment on above:Performed By: #### HSTROPN, BMP #### [facility] [address] [address] [address] Tan SantosGFR-NON AF NFWRUIWF66 mL/min/1.12m3Oyjsvblvap low>=60The [facility] CincinnatiComment on above:Performed By: #### HSTROPN, BMP #### [facility] [address] [place] [address] Dr. Tan OliverosGlucose [Mass/Vol]107 mg/dLCritically flfx70-059Tfp [facility] CincinnatiComment on above:Performed By: #### HSTROPN, BMP #### [facility] [address] [place] [address] Dr. Tan OliverosPotassium [Moles/Vol]4.3 mmol/LNormal3.5-5.1[facility] Comment on above:Performed By: #### HSTROPN, BMP #### [facility] [address] [place] [address] Dr. Tan Duartedium [Moles/Vol]140 mmol/QQumrqx011-871AemKettering Health Hamilton Comment on above:Performed By: #### HSTROPN, BMP #### [facility] [address] [place] [address] Dr. Tan OliverosUrea nitrogen [Mass/Vol]32.0 mg/dLCritically high7.0-18.0The [facility] CincinnatiComment on above:Performed By: #### HSTROPN, BMP #### [facility] [address] [place] [address] Dr. Tan Regan nitrogen/Creatinine [Mass ratio]15.2 mg/mgNormalThe [facility] CincinnatiComment on above:Performed By: #### HSTROPN, BMP #### [facility] [address] [place] [address] Dr. Tan Castañeda, HIGH SENSITIVITYon 79-86-7982ORVJLZ88.6 pg/mLNormal 4.0-76.1The [facility] on above:Result Comment: CUT-OFF POINTS HAVE BEEN ESTABLISHED BASED ON THE FOURTH UNIVERSAL DEFINITIONS OF MYOCARDIAL INFARCTION. THE UPPER REFERENCE LIMIT (URL) OF TROPONIN, DEFINED THE 99TH PERCENTILE OF cTnI DISTRIBUTION IN A REFERENCE POPULATION, HAS BEEN CONFIRMED THE DECISION THRESHOLD FOR CA DIAGNOSIS.Performed By: #### HSTROPN, BMP #### [facility] [address] [place] [address] Dr. Tan Alvarado MICROSCOPIC ONLYon 73-86-4193ARWCQUINFUCCAWrmcfiowOVDW SEEN [facility]Com[facility] on above:Performed By: #### CK, HSTROPN, CMP, BNP #### [facility] [address] [place] [address] Dr. Tan Hoff identified Cx Nom (U)INDICATEDNoalThAkron Children's HospitalComascension genesys hospital on above:Performed By: #### CK, HSTROPN, CMP, BNP #### [facility] [address] [place] [address] Dr. Tan Hinkle SEENNormalNONE SEENBluffton Hospital on above:Performed By: #### CK, HSTROPN, CMP, BNP #### [facility] [address] [place] [address] Dr. Tan Yo LM Nom (Urine sed)NONE SEENNormalNONE SEENBluffton Hospital on above:Performed By: #### CK, HSTROPN, CMP, BNP #### [facility] [address] [place] [address] Dr. Maddox ChangEpithelial cells LM Ql (Urine sed)RARENormalNONE SEEN /RAREBluffton Hospital on above:Performed By: #### CK, HSTROPN, CMP, BNP #### [facility] [address] [place] [address] Dr. Tan OliverosCOUSRENNY SEENNormalNONE SEENThe [place] HospitalComment on above:Performed By: #### CK, HSTROPN, CMP, BNP #### [facility] [address] [address] [address] Tan OliverosLedptNKN41-25Txancluh2-3Gro [facility] on above: Performed By: #### CK, HSTROPN, CMP, BNP #### [facility] [address] [address] [address] Tan OliverosWBC2-5AbnormalNONE SEENThe [facility] CincinnatiComment on above: Performed By: #### CK, HSTROPN, CMP, BNP #### [facility] [address] [address] [address] Tan OliverosXR CHEST 1 Von [id number] CHEST 1 VEXAM: XR CHEST 1 V HISTORY: SHORTNESS OF BREATH COMPARISON: 02/26/2022 TECHNIQUE: Single view of the FINDINGS: Heart size normal. No focal consolidation, pleural effusion, pulmonary congestion or pneumothorax. IMPRESSION: No acute findings. Electronically authenticated by: AUGUSTINA JAMES Date: 2022-12-08 12:54[facility] [id number] [id number]:127[facility] HospitalAmbulatory Visit Summaryon [id number] Visit Summary JUAN JOSE AUSTIN Shirley :1940 Visit Date:12/05/2022 Ambulatory Visit Instructions Your Diagnosis Enlarged prostate with urinary obstruction Bladder cancer Cancer of kidney Gross hematuria Other obstructive and reflux uropathy Tests Performed Urnls Dip Stick Auto w/o Microscopy POC 77856 Your Care Team Attending Physician - JENNIFER [...] Urology [address], [place] [address]- Medications What How Much When Instructions Unchanged [...] Urnls Dip Stick Auto w/o Microscopy POC 80538 (12/05/2022) Bilirubin Urine Dipstick - Negative Blood Urine Dipstick - 3+ Large Glucose Urine Dipstick - 1+ 250 mg/dl Ketones Urine Dipstick - Negative Leukocytes Urine Dipstick - 1+ Small Nitrite Urine Dipstick - Negative Protein Urine Dipstick - Trace Specific [place] Urine Dipstick - 1.020 Urine Appearance Urine [...] following factors may make (more content not included)...[facility] HospitalPatient Educationon 34-57-1108Vivhlnj EducationOncology Bladder Cancer Bladder cancer is an [...] Follow these instructions at home: ? Take ughz-anh-gjqcwkt and prescription medicines only as told by [...] important. Where to find more information ? [place] [employer]: www.cancer.org ? National Cancer [place] (NCI): www.cancer.gov Contact a health care provider [...] 10/02/2004 Document Revised: 09/12/2018 Document Reviewed: 09/03/2017 [employer] Patient Education ? 2019 [employer].[facility] Office/Clinic Noteon 15-61-4577Ppiyksn Office/Clinic NoteChief Complaint Follow up to stent [...] [facility] [address], [place] [address]- Additional Instructions: Patient Education Bladder Cancer I, [...] urinary obstruction Gross hematuria (more content not included)...[facility] Comment on above:Result Comment: Electronically Signed By: Jian RODRIGUEZ MD.br\Date and Time Signed: 12/05/22 10:43 EST\.br\Electronically Co-Signed By: Priya Moodybr\Date and Time Co-Signed: 12/05/22 10:40 ESTConsultation Noteon 89-00-6760Pdubrqbhabrr Note [id number]#1.00CD:127NormCrystal Clinic Orthopedic CenterCB AUTO DIFFon 63-97-0968XZHJ #0.1 103/ulNormal0.0-0.1The [facility] CincinnatiComment on above:Performed By: #### CK, HSTROPN, CMP, BNP #### [facility] [address] [place] [address] Dr. Tan OliverosBasophils/100 WBC (Bld)0.7 %Normal0.2-2.0The [facility] Comment on above:Performed By: #### CK, HSTROPN, CMP, BNP #### [facility] [address] [address] [address] Tan Ram #0.2 103/ulNormal0.0-0.7The [facility] CincinnatiComment on above: Performed By: #### CK, HSTROPN, CMP, BNP #### [facility] [address] [address] [address] Tan Santososinophils/100 WBC (Bld)2.6 %Normal0.9-7.0The [facility] Comment on above:Performed By: #### CK, HSTROPN, CMP, BNP #### [facility] [address] [address] [address] Tan Santosrythrocyte distribution width (RBC) [Ratio]17.2 %Critically high 11.0-15.0The [facility] CincinnatiComment on above:Performed By: #### CK, HSTROPN, CMP, BNP #### [facility] [address] [place] [address] Dr. Tan OliverosHematocrit (Bld) [Volume fraction]43.8 %Fdnvgn52.0-54.0The [facility] CincinnatiComment on above:Performed By: #### CK, HSTROPN, CMP, BNP #### [facility] [address] [place] [address] Dr. Tan OliverosHemoglobin (Bld) [Mass/Vol]14.4 g/ePTblsvd24.0-18.0The [place] HospitalComment on above:Performed By: #### CK, HSTROPN, CMP, BNP #### [facility] [address] [place] [address] Dr. Tan Panchal #0.01 10e3/ulNormal0.00-0.03The [facility] CincinnatiComment on above:Performed By: #### CK, HSTROPN, CMP, BNP #### [facility] [address] [place] [address] Dr. Tan Panchal %0.1 %Normal0.0-0.5The [facility] CincinnatiComment on above: Performed By: #### CK, HSTROPN, CMP, BNP #### [facility] [address] [place] [address] Dr. Tan Armstrong #1.3 103/ulNormal1.2-3.8The [facility] CincinnatiComment on above:Performed By: #### CK, HSTROPN, CMP, BNP #### [facility] [address] [place] [address] Dr. Tan Singletonhocytes/100 WBC (Bld)18.4 %Critically low20.5-60.0The [facility] CincinnatiComment on above:Performed By: #### CK, HSTROPN, CMP, BNP #### [facility] [address] [place] [address] Dr. Tan BrizuelaUAL DIFF REQNONormalThe [facility] CincinnatiComment on above: Performed By: #### CK, HSTROPN, CMP, BNP #### [facility] [address] [place] [address] Dr. Tan Altman (RBC) [Entitic mass]25.0 pgCritically low25.9-34.0The [facility] CincinnatiComment on above:Performed By: #### CK, HSTROPN, CMP, BNP #### [facility] [address] [place] [address] Dr. Tan Duarte (RBC) [Mass/Vol]32.9 g/vMNrehby30.9-35.2The [place] HospitalComment on above:Performed By: #### CK, HSTROPN, CMP, BNP #### [facility] [address] [place] [address] Dr. Tan Duarte (RBC) [Entitic vol]75.9 fLCritically low80.0-94.0The [facility] CincinnatiComment on above:Performed By: #### CK, HSTROPN, CMP, BNP #### [facility] [address] [place] [address] Dr. Tan Torres #0.5 103/ulNormal0.3-0.8The [facility] CincinnatiComment on above:Performed By: #### CK, HSTROPN, CMP, BNP #### [facility] [address] [place] [address] Dr. Tan Riveraocytes/100 WBC (Bld)7.1 %Normal1.7-12.0The [facility] Comment on above:Performed By: #### CK, HSTROPN, CMP, BNP #### [facility] [address] [place] [address] Dr. Tan Goode #5.1 103/ulNormal1.4-6.5The [facility] CincinnatiComment on above:Performed By: #### CK, HSTROPN, CMP, BNP #### [facility] [address] [place] [address] Dr. Tan Sullivanutrophils/100 WBC (Bld)71.1 %Ongwtz73.0-75.0The [facility] CincinnatiComment on above:Performed By: #### CK, HSTROPN, CMP, BNP #### [facility] [address] [place] [address] Dr. Tan Murray mean volume (Bld) [Entitic vol]9.3 fLCritically low 9.5-13.5The [facility] CincinnatiComment on above:Performed By: #### CK, HSTROPN, CMP, BNP #### [facility] [address] [place] [address] Dr. Tan OliverosPLT209 103/byGhefhj407-105Owg [facility] CincinnatiComment on above: Performed By: #### CK, HSTROPN, CMP, BNP #### [facility] [address] [place] [address] Dr. Tan OliverosRBC5.77 106/ulNormal4.70-6.10The [facility] CincinnatiComment on above:Performed By: #### CK, HSTROPN, CMP, BNP #### [facility] [address] [place] [address] Dr. Tan OliverosWBC7.2 103/ulNormal4.0-11.0The [facility] CincinnatiComment on above: Performed By: #### CK, HSTROPN, CMP, BNP #### [facility] [address] [place] [address] Dr. Tan Perez URINEon 52-51-6794HTVQXNX URINECulture Observations: NO GROWTH.NormalThe [facility] CincinnatiComment on above:Performed By: #### CK, HSTROPN, CMP, BNP #### [facility] [address] [place] [address] Dr. Tan Mackay URINE PROFILEon 42-88-6143Cbgryklwj Ql (U)Unable to perform testing due to color interference.AbnormalNEGATIVEThe [facility] CincinnatiComment on above:Performed By: #### CK, HSTROPN, CMP, BNP #### [facility] [address] [place] [address] Dr. Tan OliverosClmaria ines (U)CLEARNormalCLEARThe [facility] CincinnatiComment on above: Performed By: #### CK, HSTROPN, CMP, BNP #### [facility] [address] [place] [address] Dr. Tan Spencer (U)REDAbnormalYELLOWSt. Rita'S Hospital HospitalComment on above: Performed By: #### CK, HSTROPN, CMP, BNP #### [facility] [address] [address] [address] Tan Holm micrscopic examination will be performed if indicated. NormalThe [place] HospitalComment on above:Performed By: #### CK, HSTROPN, CMP, BNP #### [facility] [address] [address] [address] Tan OliverosGlucose Ql (U)Unable to perform testing due to color interference.AbnormalNEGATIVESt. Rita'S Hospital HospitalComment on above:Performed By: #### CK, HSTROPN, CMP, BNP #### [facility] [address] [address] [address] Tan OliverosHemoglobin Ql (U)Unable to perform testing due to color interference.AbnormalNEGATIVESt. Rita'S Hospital HospitalComment on above:Performed By: #### CK, HSTROPN, CMP, BNP #### [facility] [address] [address] [address] Tan Troy Ql (U)Unable to perform testing due to color interference.AbnormalNEGATIVESt. Rita'S Hospital HospitalComment on above:Performed By: #### CK, HSTROPN, CMP, BNP #### [facility] [facility] [address] [place] [address] Dr. Tan Sanchez to perform testing due to color interference. AbnormalNEGATIVESt. Rita'S Hospital HospitalComment on above:Performed By: #### CK, HSTROPN, CMP, BNP #### [facility] [address] [address] [address] Tan Serranoite Ql (U)Unable to perform testing due to color interference.AbnormalNEGATIVESt. Rita'S Hospital HospitalComment on above:Performed By: #### CK, HSTROPN, CMP, BNP #### [facility] [address] [address] [address] Tan Triplett to perform testing due to color interference.Abnormal5-9 The [facility] HospitalComment on above:Performed By: #### CK, HSTROPN, CMP, BNP #### [facility] [address] [address] [address] Tan OliverosSPEC GRAVITY<=1.314Ihoadptk1.005-<=1.025The [facility] Comment on above:Performed By: #### CK, HSTROPN, CMP, BNP #### [facility] [address] [place] [address] Dr. Tan Yang PROTEINUnadenisa to perform testing due to color interference. NormalNEGATIVE/ TRACEThe [facility] CincinnatiComment on above:Performed By: #### CK, HSTROPN, CMP, BNP #### [facility] [address] [place] [address] Dr. Tan Mejia MICRO INDINDICATEDNormalThe [facility] CincinnatiComment on above: Performed By: #### CK, HSTROPN, CMP, BNP #### [facility] [address] [place] [address] Dr. Tan BarretoBILINOGENCarmelita to perform testing due to color interference. Normal0.2 - 1.0The [facility] CincinnatiComment on above:Performed By: #### CK, HSTROPN, CMP, BNP #### [facility] [address] [place] [address] Dr. Tan OliverosPROF 14(COMP METB)on [id number] [Mass/Vol]3.8 g/dLNormal 3.4-5.0The [facility] CincinnatiComment on above:Performed By: #### CK, HSTROPN, CMP, BNP #### [facility] [address] [place] [address] Dr. Tan OliverosAlbumin/Globulin [Mass ratio]1.3 {ratio}NormalThe [facility] on above:Performed By: #### CK, HSTROPN, CMP, BNP #### [facility] [address] [place] [address] Dr. Tan CrowderP [Catalytic activity/Vol]81 U/BOixcwj57-561Hkh [facility] HospitalComment on above:Performed By: #### CK, HSTROPN, CMP, BNP #### [facility] [address] [address] [address] Tan Kay [Catalytic activity/Vol]20 U/BTwvhmv97-12Opd [facility] CincinnatiComment on above:Performed By: #### CK, HSTROPN, CMP, BNP #### [facility] [address] [address] [address] Tan Camachoon gap [Moles/Vol]14.3 mmol/LNormalThe [facility] Comment on above:Performed By: #### CK, HSTROPN, CMP, BNP #### [facility] [address] [place] [address] Dr. Tan Dawson [Catalytic activity/Vol]26 U/VFbeclz90-69Owl [facility] CincinnatiComment on above:Performed By: #### CK, HSTROPN, CMP, BNP #### [facility] [address] [place] [address] Dr. Tan OliverosBilirubin [Mass/Vol]0.7 mg/dLNormal0.2-1.0[facility] Comment on above:Performed By: #### CK, HSTROPN, CMP, BNP #### [facility] [address] [place] [address] Dr. Tan OliverosCalcium [Mass/Vol]8.9 mg/dLNormal8.5-10.1[facility] Comment on above:Performed By: #### CK, HSTROPN, CMP, BNP #### [facility] [address] [place] [address] Dr. Tan OliverosChloride [Moles/Vol]101 mmol/LUzfdzl88-757NxaKettering Health [facility] Comment on above:Performed By: #### CK, HSTROPN, CMP, BNP #### [facility] [address] [place] [address] Dr. Tan OliverosCO2 [Moles/Vol]27.9 mmol/KWfakka02.0-32.0[facility] Comment on above:Performed By: #### CK, HSTROPN, CMP, BNP #### [facility] [address] [place] [address] Dr. Tan OliverosCreatinine [Mass/Vol]1.85 mg/dLCritically high0.70-1.30The [facility] CincinnatiComment on above:Performed By: #### CK, HSTROPN, CMP, BNP #### [facility] [address] [place] [address] Dr. Maddox ChangEGFR-AF AQBTPDDX79 mL/min/1.29r7Ixikgffcrs low>=60The [facility] CincinnatiComment on above:Performed By: #### CK, HSTROPN, CMP, BNP #### [facility] [address] [place] [address] Dr. Tan SantosGFR-NON AF AIQUWNCT73 mL/min/1.82h2Vqfudbgzgi low>=60The [facility] CincinnatiComment on above:Performed By: #### CK, HSTROPN, CMP, BNP #### [facility] [address] [place] [address] Dr. Tan OliverosGlobulin (S) [Mass/Vol]3.0 g/dLNormalThe [facility] CincinnatiComment on above:Performed By: #### CK, HSTROPN, CMP, BNP #### [facility] [address] [place] [address] Dr. Tan OliverosGlucose [Mass/Vol]114 mg/dLCritically qfbd08-273Koi [facility] on above:Performed By: #### CK, HSTROPN, CMP, BNP #### [facility] [address] [place] [address] Dr. Tan OliverosPotassium [Moles/Vol]4.2 mmol/LNormal3.5-5.1[facility] Comment on above:Performed By: #### CK, HSTROPN, CMP, BNP #### [facility] [address] [place] [address] Dr. Tan OliverosProtein [Mass/Vol]6.8 g/dLNormal6.4-8.2The [facility] Comment on above:Performed By: #### CK, HSTROPN, CMP, BNP #### [facility] [address] [address] [address] Tan Leonardum [Moles/Vol]139 mmol/WTzctdm890-035Lmf [facility] Comment on above:Performed By: #### CK, HSTROPN, CMP, BNP #### [facility] [address] [address] [address] Tan Regan nitrogen [Mass/Vol]27.0 mg/dLCritically high7.0-18.0The [facility] CincinnatiComment on above:Performed By: #### CK, HSTROPN, CMP, BNP #### [facility] [address] [place] [address] Dr. Tan Regan nitrogen/Creatinine [Mass ratio]14.6 mg/mgNoGood Samaritan HospitalComment on above:Performed By: #### CK, HSTROPN, CMP, BNP #### [facility] [address] [place] [address] Dr. Tan Wells [id number] Coag (PPP) [Relative time]0.99 {INR} NormalKettering Health HamiltonComment on above:Performed By: #### CK, HSTROPN, CMP, BNP #### [facility] [address] [place] [address] Dr. Tan Muller GUIDELINESSEE BELOWTrinity Health System West CampusComment on above:Result Comment: DESIRED INR: 2.0 - 3.0 CONDITIONS NOT LISTED BELOW 2.5 - 3.5 FOR PROSTHETIC HEART VALVE REPLACEMENT 2.5 - 3.5 RECURRENT THROMBOSIS Performed By: #### CK, HSTROPN, CMP, BNP #### [facility] [address] [place] [address] Dr. Tan Porter Coag (PPP) [Time]10.5 sNormal9.0-11.6The [facility] Comment on above:Performed By: #### CK, HSTROPN, CMP, BNP #### [facility] [address] [place] [address] Dr. Tan Barbosa [id number] Coag (Bld) [Time]28.4 tVfloyk64.3-36.2The [facility] on above:Performed By: #### CK, HSTROPN, CMP, BNP #### [facility] [address] [address] [address] Tan TERRAZAS ONLYon 17-20-2509ZYTCLOSXJEJHRDukmcfapHDCU SEEN [facility] on above:Performed By: #### CK, HSTROPN, CMP, BNP #### [facility] [address] [address] [address] Tan Hoff identified Cx Nom (U)CX ALREADY ORDEREDNoSumma Health on above:Performed By: #### CK, HSTROPN, CMP, BNP #### [facility] [address] [place] [address] Dr. Tan Hinkle SEENNormalNONE SEENBluffton Hospital on above:Performed By: #### CK, HSTROPN, CMP, BNP #### [facility] [address] [address] [address] Tan Yo LM Nom (Urine sed)NONE SEENNormalNONE SEENBluffton Hospital on above:Performed By: #### CK, HSTROPN, CMP, BNP #### [facility] [address] [address] [address] Maddox ChangEpithelial cells LM Ql (Urine sed)NONE SEENNormalNONE SEEN /RARE The [facility] on above:Performed By: #### CK, HSTROPN, CMP, BNP #### [facility] [address] [address] [address] Tan OliverosCOUSNONE SEENNormalNONE SEENBluffton Hospital on above:Performed By: #### CK, HSTROPN, CMP, BNP #### [facility] [address] [address] [address] Tan Dodge (U) [#/Vol]/uLAbnormal0-2The [facility] CincinnatiComment on above:Performed By: #### CK, HSTROPN, CMP, BNP #### [facility] [address] [place] [address] Dr. Tan MuñizBC0-2AbnormalNONE SEENThe [facility] CincinnatiComment on above: Performed By: #### CK, HSTROPN, CMP, BNP #### [facility] [address] [place] [address] Dr. Tan OliverosINSULINon [id number] uIU/mLNormal2.6-24.9The [facility] CincinnatiComment on above:Performed By: #### CK, HSTROPN, CMP, BNP #### [facility] [address] [place] [address] Dr. Tan Cavanaugh [id number] peptide B (Bld) [Mass/Vol]715.0 pg/mL Normal<=1,800.0The [facility] CincinnatiComment on above:Performed By: #### CK, HSTROPN, CMP, BNP #### [facility] [address] [place] [address] Dr. Tan Villagomez AUTO DIFFon [id number] #0.0 103/ulNormal0.0-0.1The [facility] CincinnatiComment on above:Performed By: #### CK, HSTROPN, CMP, BNP #### [facility] [address] [place] [address] Dr. Tan Villasophils/100 WBC (Bld)0.7 %Normal0.2-2.0The [facility] Comment on above:Performed By: #### CK, HSTROPN, CMP, BNP #### [facility] [address] [place] [address] Dr. Tan Ram #0.1 103/ulNormal0.0-0.7The [facility] CincinnatiComment on above: Performed By: #### CK, HSTROPN, CMP, BNP #### [facility] [address] [place], [place] [address] Dr. Tan Santososinophils/100 WBC (Bld)2.1 %Normal0.9-7.0The [facility] Comment on above:Performed By: #### CK, HSTROPN, CMP, BNP #### [facility] [address] [place] [address] Dr. Tan Santosrythrocyte distribution width (RBC) [Ratio]15.9 %Critically high 11.0-15.0The [facility] CincinnatiComment on above:Performed By: #### CK, HSTROPN, CMP, BNP #### [facility] [address] [place] [address] Dr. Tan OliverosHematocrit (Bld) [Volume fraction]45.1 %Qidkpy42.0-54.0The [facility] CincinnatiComment on above:Performed By: #### CK, HSTROPN, CMP, BNP #### [facility] [address] [place] [address] Dr. Tan OliverosHemoglobin (Bld) [Mass/Vol]14.1 g/kNAuxxwu07.0-18.0The [facility] CincinnatiComment on above:Performed By: #### CK, HSTROPN, CMP, BNP #### [facility] [address] [place] [address] Dr. Tan Panchal #0.02 10e3/ulNormal0.00-0.03The [facility] CincinnatiComment on above:Performed By: #### CK, HSTROPN, CMP, BNP #### [facility] [address] [place] [address] Dr. Tan Panchal %0.3 %Normal0.0-0.5The [facility] CincinnatiComment on above: Performed By: #### CK, HSTROPN, CMP, BNP #### [facility] [address] [place] [address] Dr. Tan LuuqeMPH #0.7 103/ulCritically low1.2-3.8The [facility] Comment on above:Performed By: #### CK, HSTROPN, CMP, BNP #### [facility] [address] [place] [address] Dr. Tan Luquemphocytes/100 WBC (Bld)12.4 %Critically low20.5-60.0The [facility] CincinnatiComment on above:Performed By: #### CK, HSTROPN, CMP, BNP #### [facility] [address] [place] [address] Dr. Tan BrizuelaUAL DIFF REQNONormalThe [facility] HospitalComment on above: Performed By: #### CK, HSTROPN, CMP, BNP #### [facility] [address] [place] [address] Dr. Tan Duarte (RBC) [Entitic mass]23.7 pgCritically low25.9-34.0The [facility] CincinnatiComment on above:Performed By: #### CK, HSTROPN, CMP, BNP #### [facility] [address] [place] [address] Dr. Tan Duarte (RBC) [Mass/Vol]31.3 g/wUGblnkb22.9-35.2The [facility] CincinnatiComment on above:Performed By: #### CK, HSTROPN, CMP, BNP #### [facility] [address] [place] [address] Dr. Tan Duarte (RBC) [Entitic vol]75.7 fLCritically low80.0-94.0The [facility] CincinnatiComment on above:Performed By: #### CK, HSTROPN, CMP, BNP #### [facility] [address] [place] [address] Dr. Tan Torres #0.4 103/ulNormal0.3-0.8The [facility] CincinnatiComment on above:Performed By: #### CK, HSTROPN, CMP, BNP #### [facility] [address] [place] [address] Dr. Tan Riveraocytes/100 WBC (Bld)6.8 %Normal1.7-12.0The [facility] Comment on above:Performed By: #### CK, HSTROPN, CMP, BNP #### [facility] [address] [place] [address] Dr. Tan Goode #4.5 103/ulNormal1.4-6.5The [facility] CincinnatiComment on above:Performed By: #### CK, HSTROPN, CMP, BNP #### [facility] [address] [place] [address] Dr. Tan Cardosoophils/100 WBC (Bld)77.7 %Critically high43.0-75.0The [facility] CincinnatiComment on above:Performed By: #### CK, HSTROPN, CMP, BNP #### [facility] [address] [place] [address] Dr. Tan Murray mean volume (Bld) [Entitic vol]9.3 fLCritically low 9.5-13.5The [facility] CincinnatiComment on above:Performed By: #### CK, HSTROPN, CMP, BNP #### [facility] [address] [place] [address] Dr. Tan OliverosPLT205 103/bcRznebr716-086Tsq [facility] CincinnatiComment on above: Performed By: #### CK, HSTROPN, CMP, BNP #### [facility] [address] [place] [address] Dr. Tan OliverosRBC5.96 106/ulNormal4.70-6.10The [facility] CincinnatiComment on above:Performed By: #### CK, HSTROPN, CMP, BNP #### [facility] [address] [place] [address] Dr. Tan OliverosWBC5.7 103/ulNormal4.0-11.0The [facility] CincinnatiComment on above: Performed By: #### CK, HSTROPN, CMP, BNP #### [facility] [address] [place] [address] Dr. Tan Kee THYROXINE INDEX T7on 96-89-0369SXL8.58Fvvybr4.30-4.50The [facility] CincinnatiComment on above:Performed By: #### CK, HSTROPN, CMP, BNP #### [facility] [address] [address] [address] Tan OliverosT3U36.0 %Siiutg98.0-40.0The [facility] CincinnatiComment on above: Performed By: #### CK, HSTROPN, CMP, BNP #### [facility] [address] [address] [address] Tan OliverosT4 [Mass/Vol]6.50 ug/dLNormal4.50-12.10The [facility] Comment on above:Performed By: #### CK, HSTROPN, CMP, BNP #### [facility] [address] [place] [address] Dr. Tan OliverosGLYCOHEMOGLOBIN A1Con [id number] RECOMMENDATIONSEE BELOWNormal The [facility] CincinnatiComment on above:Result Comment: ADA RECOMMENDED LIMIT 4.0 - 6.0 ADA THERAPEUTIC TARGET < 7.0 ACTION SUGGESTED > 7.0Performed By: #### CK, HSTROPN, CMP, BNP #### [facility] [address] [place] [address] Dr. Tan OliverosGlucose [Mass/Vol]114 mg/dLNormalThAkron Children's HospitalComment on above:Performed By: #### CK, HSTROPN, CMP, BNP #### [facility] [address] [place] [address] Dr. Tan OliverosHbA1c (Bld) [Mass fraction]5.6 %Normal4.5-6.2The [facility] CincinnatiComment on above:Performed By: #### CK, HSTROPN, CMP, BNP #### [facility] [address] [place] [address] Dr. Tan Fair 29-25-2062Pvfm [Mass/Vol]40.0 ug/dLCritically low 65.0-175.0The [facility] CincinnatiComment on above:Performed By: #### IRON, PSASC, VITAD #### [facility] [address] [place] [address] Dr. Tan OliverosLIPID PROFILEon [id number]-HDL RATIO NORMSPike Community HospitalComment on above:Result Comment: 3.3 - 4.4 LOW RISK 4.4 - 7.1 AVERAGE RISK 7.1 - 11.0 MODERATE RISK >11.0 HIGH RISKPerformed By: #### BNP, T7, CMP, TSH, LIPID #### [facility] [address] [address] [address] Tan OliverosCholesterol [Mass/Vol]159 mg/dLNormal<=200[facility] Comment on above:Performed By: #### BNP, T7, CMP, TSH, LIPID #### [facility] [address] [address] [address] Tan Pinedaesterol in HDL [Mass/Vol]66 mg/dLCritically dccg09-67TwmKettering Health HamiltonComment on above:Performed By: #### BNP, T7, CMP, TSH, LIPID #### [facility] [address] [address] [address] Tan Pinedaesterol in LDL [Mass/Vol]82.4 mg/dLTrinity Health System West CampusComment on above:Performed By: #### BNP, T7, CMP, TSH, LIPID #### [facility] [address] [address] [address] Tan Wells.total/Cholesterol in HDL [Mass ratio]2.4 {ratio} NormalKettering Health HamiltonComment on above:Performed By: #### BNP, T7, CMP, TSH, LIPID #### [facility] [address] [place] [address] Dr. Tan Monroy NORMAL> or = 60 mg/dl - LOW CARDIOVASCULAR RISK <40 mg/dl - HIGH CARDIOVASCULAR RISKTrinity Health System West CampusComment on above:Performed By: #### BNP, T7, CMP, TSH, LIPID #### [facility] [address] [place] [address] Dr. Tan OliverosLDL CALC NORMALSEE [facility] HospitalComment on above:Result Comment: <100 mg/dl OPTIMAL 100 - 129 mg/dl NEAR OR ABOVE OPTIMAL 130 - 159 mg/dl BORDERLINE HIGH 160 - 189 mg/dl HIGH >190 mg/dl VERY HIGH Performed By: #### BNP, T7, CMP, TSH, LIPID #### [facility] [address] [address] [address] Tan OliverosTriglyceride [Mass/Vol]53 mg/dLNormal<=150The [facility] Comment on above:Performed By: #### BNP, T7, CMP, TSH, LIPID #### [facility] [address] [address] [address] Tan OliverosVLDL CALC10.6 mg/dLNormalThe [facility] CincinnatiComment on above: Performed By: #### BNP, T7, CMP, TSH, LIPID #### [facility] [address] [address] [address] Tan OliverosPROCristi 14(COMP METB)on 89-89-0003Snustse [Mass/Vol]3.9 g/dLNormal 3.4-5.0The [facility] CincinnatiComment on above:Performed By: #### CK, HSTROPN, CMP, BNP #### [facility] [address] [address] [address] Tan OliverosAlbumin/Globulin [Mass ratio]1.2 {ratio}NormalThe [facility] CincinnatiComment on above:Performed By: #### CK, HSTROPN, CMP, BNP #### [facility] [address] [address] [address] Tan Patel [Catalytic activity/Vol]94 U/SFkokpe40-578Pkf [facility] CincinnatiComment on above:Performed By: #### CK, HSTROPN, CMP, BNP #### [facility] [address] [address] [address] Tan Kay [Catalytic activity/Vol]17 U/DVnlbrw78-35Xhh [facility] CincinnatiComment on above:Performed By: #### CK, HSTROPN, CMP, BNP #### [facility] [address] [address] [address] Tan Montesinos gap [Moles/Vol]12.9 mmol/LNormalThe [facility] Comment on above:Performed By: #### CK, HSTROPN, CMP, BNP #### [facility] [address] [address] [address] Tan OliverosAST [Catalytic activity/Vol]20 U/SGpryjn89-76Kmh [facility] CincinnatiComment on above:Performed By: #### CK, HSTROPN, CMP, BNP #### [facility] [address] [address] [address] Tan OliverosBilirubin [Mass/Vol]0.4 mg/dLNormal0.2-1.0The [facility] Comment on above:Performed By: #### CK, HSTROPN, CMP, BNP #### [facility] [address] [place] [address] Dr. Tan OliverosCalcium [Mass/Vol]9.1 mg/dLNormal8.5-10.1[facility] Comment on above:Performed By: #### CK, HSTROPN, CMP, BNP #### [facility] [address] [place] [address] Dr. Tan OliverosChloride [Moles/Vol]106 mmol/DTjensw72-862Hfr [facility] Comment on above:Performed By: #### CK, HSTROPN, CMP, BNP #### [facility] [address] [place] [address] Dr. Tan OliverosCO2 [Moles/Vol]29.1 mmol/KFhmwbk92.0-32.0The [facility] Comment on above:Performed By: #### CK, HSTROPN, CMP, BNP #### [facility] [address] [place] [address] Dr. Tan OliverosCreatinine [Mass/Vol]1.98 mg/dLCritically high0.70-1.30The [facility] CincinnatiComment on above:Performed By: #### CK, HSTROPN, CMP, BNP #### [facility] [address] [place] [address] Dr. Maddox ChangEGFR-AF SVKQGKNU51 mL/min/1.91v9Okjeajjucu low>=60The [facility] CincinnatiComment on above:Performed By: #### CK, HSTROPN, CMP, BNP #### [facility] [address] [place] [address] Dr. Tan SantosGFR-NON AF ELDCSNYO51 mL/min/1.32h4Kptwuqullt low>=60The [facility] CincinnatiComment on above:Performed By: #### CK, HSTROPN, CMP, BNP #### [facility] [address] [place] [address] Dr. Tan OliverosGlobulin (S) [Mass/Vol]3.3 g/dLNormalThe [facility] CincinnatiComment on above:Performed By: #### CK, HSTROPN, CMP, BNP #### [facility] [address] [place] [address] Dr. Tan OliverosGlucose [Mass/Vol]108 mg/dLCritically nccq90-162Mls [facility] CincinnatiComment on above:Performed By: #### CK, HSTROPN, CMP, BNP #### [facility] [address] [place] [address] Dr. Tan OliverosPotassium [Moles/Vol]4.0 mmol/LNormal3.5-5.1The [facility] Comment on above:Performed By: #### CK, HSTROPN, CMP, BNP #### [facility] [address] [place] [address] Dr. Tan OliverosProtein [Mass/Vol]7.2 g/dLNormal6.4-8.2The [facility] Comment on above:Performed By: #### CK, HSTROPN, CMP, BNP #### [facility] [address] [place] [address] Dr. Tan OliverosSodium [Moles/Vol]144 mmol/DYhnrnv960-633Tea [facility] Comment on above:Performed By: #### CK, HSTROPN, CMP, BNP #### [facility] [address] [place] [address] Dr. Tan OliverosUrea nitrogen [Mass/Vol]43.0 mg/dLCritically high7.0-18.0The [facility] HospitalComment on above:Performed By: #### CK, HSTROPN, CMP, BNP #### [facility] [address] [place] [address] Dr. Tan OliverosUrea nitrogen/Creatinine [Mass ratio]21.7 mg/mgNoGood Samaritan HospitalComascension [facility]ys hospital on above:Performed By: #### CK, HSTROPN, CMP, BNP #### [facility] [address] [place] [address] Dr. Tan Mes[place] 17-37-4446GCA7.331 uIU/mLNormal0.358-3.740[facility] on above:Performed By: #### CK, HSTROPN, CMP, BNP #### [facility] [address] [place] [address] Dr. Tan OliverosVITAMIN D 25 OHon [id number] D 25-OH40.9 ng/mLNormalBluffton Hospital on above:Performed By: #### IRON, PSASC, VITAD #### [facility] [address] [place] [address] Dr. Tan Petit [facility] HospitalCom[facility] on above: Result Comment: <20 ng/mL Vit D deficient 20 - <30 ng/mL Vit D insufficient 30 - 100 ng/mL Vit D sufficient >100 ng/mL Potential ToxicityPerformed By: #### IRON, PSASC, VITAD #### [facility] [address] [place] [address] Dr. Tan OliverosURINALYSIS, REFLEX MICROSCOPICon 67-03-5023Rrjagqvod Ql (U) NegativeNegativeCleveland ClinicClarity (Unsp spec)CloudyAbnormalClearCleveland ClinicColor (U)Light OrangeAbnormalYellowCleveland ClinicGlucose Test strip (U) [Mass/Vol]4+AbnormalNegativeCleveland ClinicHemoglobin Ql (U)3+AbnormalNegative [facility] ClinicHyaline casts (Urine sed) [#/Area]1-3 /LPFAbnormal0 /LPF [facility] ClinicKetones Ql (U)NegativeNegativeCleveland ClinicLeukocyte esterase Test strip Ql (U)NegativeNegativeUc West Chester HospitalNitrite Ql (U)NegativeNegative [facility] Center ClinicpH (U)5.5 [pH]5.0 - 8.0Mark Center ClinicProtein (U) [Mass/Vol]1+ AbnormalNegativeUc West Chester HospitalRBC LM.HPF (Urine sed) [#/Area]/[HPF]Abnormal0-3 /HPFGalion Hospitalpecific gravity (U) [Rel density]1.0191.005 - 1.030 [facility] HospitalUrobilinogen Ql (U)NegativeNegativeUc West Chester HospitalWBC LM.HPF (Urine sed) [#/Area]0-5 /HPF0-5 /HPFUc West Chester HospitalURINE CULTUREon 03-17-2022 Bacteria identified Cx Nom (U)No growth (<1,000 CFU/ml)[facility] HospitalTYPE AND SCREEN,30 DAYon [id number] ClinicHIstorical Ab Scr StatusNegative [facility] HospitalRh Nom (Bld)PositiveCleSelect Medical Specialty Hospital - TrumbullCT UROGRAM WO/W IVCONon 61-94-7600Mubpfqirp ClinicDipstick and Microscopicon 92-99-9541Trvqzpzkew Nom (U)CloudyCritically abnormalCleOhio State East HospitalComment on above:Order Comment: Name Collection Type:: Clean-Voided MidstreamPerformed By: #### ADDONUAPLUS, CUU #### [facility] [address] [id number] USABacteria LM.HPF #/area (Urine sed)None SeenNormalNone Seen [facility] HospitalComment on above:Order Comment: Name Collection Type:: Clean-Voided MidstreamPerformed By: #### ADDONUAPLUS, CUU #### [facility] [address] [place] [address] USABilirubin,UrineNegativeNormalNegativePromedica Flower HospitalComment on above:Order Comment: Name Collection Type:: Clean- Voided MidstreamPerformed By: #### ADDONUAPLUS, CUU #### [facility] [address] [place] [address] USAColor Nom (U)YellowNormalYellowPromedica Flower HospitalComment on above:Order Comment: Name Collection Type:: Clean-Voided MidstreamPerformed By: #### ADDONUAPLUS, CUU #### [place] [address] USAGlucose Ql (U)NormalNormalNormSumma Health Akron CampusComment on above:Order Comment: Name Collection Type:: Clean-Voided MidstreamPerformed By: #### ADDONUAPLUS, CUU #### [place] [address] USAHyaline Casts,Qvmcq0-8Vkwycq3-2IajxrizqePromedica Flower HospitalComment on above:Order Comment: Name Collection Type:: Clean-Voided MidstreamResult Comment: PERFORMED BY: [place] [address] PATHOLOGIST COAL MINER LEONARD MCCLAIN M.D.Performed By: #### ADDONUAPLUS, CUU #### [place] [address] USAKetones Ql (U)NegativeNormalNegCleveland Clinic Euclid HospitalComment on above:Order Comment: Name Collection Type:: Clean- Voided MidstreamPerformed By: #### ADDONUAPLUS, CUU #### [place] [address] USALeukocyte esterase Test strip Ql (U)4+HighNegative [facility]lower HospitalComment on above:Order Comment: Name Collection Type:: Clean-Voided MidstreamPerformed By: #### ADDONUAPLUS, CUU #### [place] [address] USANitrite,UrineNegativeNormokNegCleveland Clinic Euclid HospitalComment on above:Order Comment: Name Collection Type:: Clean- Voided MidstreamPerformed By: #### ADDONUAPLUS, CUU #### [place] [address] USAOccult Blood,Urine3+HighNegativePromedica Flower HospitalComment on above:Order Comment: Name Collection Type:: Clean-Voided MidstreamResult Comment: PERFORMED BY: [place] [address] PATHOLOGIST COAL MINER LEONARD MCCLAIN M.D.Performed By: #### JONATHAN, CUU #### [place] [address] USApH (U)7.0 [pH]Normal5.0-9.0[facility]lower HospitalComment on above:Order Comment: Name Collection Type:: Clean-Voided MidstreamPerformed By: #### ADDRICHYPLUS, CUU #### [place] [address] USAProtein mass conc (U)30 mg/dLHighNegativePromedica Flower HospitalComment on above:Order Comment: Name Collection Type:: Clean-Voided MidstreamPerformed By: #### ADDNOEL, CUU #### [place] [address] USARBC LM.HPF #/area (Urine sed)InnumerableHigh0-4FCleveland Clinic Mercy HospitalComment on above:Order Comment: Name Collection Type:: Clean-Voided MidstreamPerformed By: #### JONATHAN, CUU #### [place] [address] USASpecificy [place],Urine1.380Cfbvsu6.001-1.030Prom[facility] Flower HospitalComment on above:Order Comment: Name Collection Type:: Clean-Voided MidstreamPerformed By: #### ADDONKAITLINPLUS, CUU #### [place] [address] USASquamous Epithelial Cell,UrineNone SeenNormal0-2FCleveland Clinic Mercy HospitalComment on above:Order Comment: Name Collection Type:: Clean-Voided MidstreamPerformed By: #### ADDONUAPLUS, CUU #### [place] [address] USAUrobilinogen,UrineNormalNormalNormalPromedica Flower HospitalComment on above:Order Comment: Name Collection Type:: Clean- Voided MidstreamPerformed By: #### JONATHAN, CUU #### [facility] [address] LM.HPF #/area (Urine sed)InnumerableRichwood Area Community Hospital0-[address] [place], [place] [address]Comment on above:Order Comment: Name Collection Type:: Clean-Voided MidstreamPerformed By: #### JONATHAN, CUU #### [facility] [address] [id number] USALon 02-23-2019 Specimen: [id number] Received: 02/23/19 Status: MALCOLM Mendez Num: [id number] Spec Type: Cytology Subm Dr: Jian Rodriguez MD Tissues: A CYTOSLIDE (URINE) Procedures: Pap Stain/2 Patient Age/Sex Location Account Attending Physician Juan Jose Austin Sr 78/M [place]AN[place] [id number] Jian Rodriguez MD SPEC NUM: [id number] RECD: 02/23/19 STATUS: MALCOLM MENDEZ NUM: [id number] ALEKSANDR: 02/23/[address] [facility] [address]: Jian Rodriguez MD ENTERED: 02/23/[address] [facility] DR: FARRAH TYPE: Cytology DEPT: CN ORDERED: [...] examined. Microscopic examination supports the pathologic diagnosis. [address] Specimen: [id number] Received: 02/23/19 Status: MALCOLM Mendez Num: [id number] Spec Type: Cytology Subm Dr: Jian Rodriguez MD Tissues: A CYTOSLIDE (URINE) Procedures: Pap Stain/2 Patient: Juan Jose Austin Shirley Sr [id number] (Continued) Signed (signature on file) Julio Cesar Carr MD 02/24/19 1700 [facility] HospitalUrine Cultureon 04-51-3063Kgtuqvhi identified Cx Nom (U)ORGANISM: Pseudomonas aeruginosa (O:PSEAER) [place]row Count >100,000 100,000 CFU/ML OTHER MIXED BACTERIAL [...] RESISTANT TO ALL B-LACTAM DRUGS. PERFORMED BY: [address] [address] PATHOLOGIST COAL MINER LEONARD MCCLAIN M.D.[facility] HospitalComment on above: Performed By: #### JAMAR CASTILLO #### [address] [address] [facility] Vital Signs Date TimeVital SignValuePerforming EfmtqthfmTiufelgn79-13-4723 08:47-0400Body sjfqabeogyw42.4 [degF]Harpreet Avalos RELAY MOTORMAN-[employer]ER Work Phone: [facility]08-04-2025 08:47-0400Diastolic blood rzxodzxg68 mm[Hg]Harpreet Avalos RELAY MOTORMAN-[employer]UD GRADER Work Phone: [facility]08-04-2025 08:47-0400Heart rate 74 /minHarpreet Avalos RELAY MOTORMAN-[employer]UD GRADER Work Phone: [facility]08-04-2025 08:47-0400 Respiratory rate18 /minHarpreet Avalos RELAY MOTORMAN-SPUD GRADER Work Phone: [facility]08-04-2025 08:47-0400Systolic blood kjvdbldu768 mm[Hg]Harpreet Avalos RELAY MOTORMAN-[employer]UD GRADER Work Phone: [facility]07-26-2025 10:04-0400Body plmekg616.6 cmBrblank Mary RELAY MOTORMAN-[employer]UD GRADER Work Phone: [facility] [employer] Svicrh45-32-7297 10:04-0400Body mass index (BMI) [Ratio]27.98 kg/n4NgfrxgjChago Hernandez RELAY MOTORMAN-[employer]UD GRADER Work Phone: [facility]07-26-2025 10:04-0400Body sudxtd26.94 kgBrianna Dechristopher RELAY MOTORMAN-[employer]UD GRADER Work Phone: [facility] [employer] Npcsxy98-06-1783 10:04-0400Diastolic blood ofumfyhe58 mm[Hg]Chago Montillaer RELAY MOTORMAN-[employer]UD GRADER Work Phone: [facility]07-26-2025 10:04-0400Heart rate 71 /minChago Wuopher RELAY MOTORMAN-SPUD GRADER Work Phone: [facility]07-26-2025 10:04-6046IjB2% (BldA) [Mass fraction]98 %Chago Decistopher RELAY MOTORMAN[employer]UD GRADER Work Phone: [facility]07-26-2025 10:04-0400Systolic blood qpbabigg565 mm[Hg]Chago Wuopher RELAY MOTORMAN-SPUD GRADER Work Phone: [facility] [employer] Ijueyk55-14-5781 15:01-0400Body zjfhkvxavqu12.6 [degF]Harpreet Avalos RELAY MOTORMAN-[employer]UD GRADER Work Phone: [facility]07-21-2025 15:01-0400Diastolic blood ahixfhfj01 mm[Hg]Harpreet Avalos RELAY MOTORMAN-[employer]UD GRADER Work Phone: [facility]07-21-2025 15:01-0400Heart rate 75 /minHarpreet Avalos RELAY MOTORMAN-SPUD GRADER Work Phone: [facility]07-21-2025 15:01-0400 Respiratory rate18 /minHarpreet Avalos RELAY MOTORMAN-SPUD GRADER Work Phone: [facility]07-21-2025 15:01-0400Systolic blood qloubhar527 mm[Hg]Harpreet Avalos RELAY MOTORMAN-SPUD GRADER Work Phone: [facility]01-10-2025 09:01-0500Body mass index (BMI) [Ratio]29.23 kg/m7AnngtGraeme Vazquez MD Work Phone: [facility]01-10-2025 09:01-0500Body temperature 97.7 [degF]Graeme Vazquez MD Work Phone: [facility]01-10-2025 09:01-0500Body aessmp55.7 kgGraeme Vazquez MD Work Phone: [facility]01-10-2025 09:01-0500Diastolic blood rawjtuon25 mm[Hg]Graeme Vazquez MD Work Phone: [facility]01-10-2025 09:01-0500Heart rate63 /min Graeme Vazquez MD Work Phone: [facility]01-10-2025 09:01-0500Respiratory rate 18 /minGraeme Vazquez MD Work Phone: [facility]01-10-2025 09:01-9932PnL2% (BldA) [Mass fraction]98 %Graeme Vazquez MD Work Phone: [facility]01-10-2025 09:01-0500Systolic blood hkedjsth458 mm[Hg]Graeme Vazquez MD Work Phone: [facility]11-28-2024 20:54-0500Body temperature 98.01 [degF]Leni Santiago MD Work Phone: [facility]11-28-2024 20:54-0500Diastolic blood lnzimspx33 mm[Hg]Leni Santiago MD Work Phone: [facility]11-28-2024 20:54-0500Heart rate60 /Fawad Santiago MD Work Phone: [place] [address] [place] [address]-28-2024 20:54-0500 Respiratory rate18 /Fawad Santiago MD Work Phone: [facility]11-28-2024 20:54-8908CoH5% (BldA) [Mass fraction]98 %Leni Santiago MD Work Phone: [place] [address] [place] [address]-28-2024 20:54-0500Systolic blood ihrywktt690 mm[Hg]Leni Santiago MD Work Phone: bgerhard [facility]11-08-2024 09:22-0500Body sniopw023 cmVbritany Vazquez MD Work Phone: [facility]11-08-2024 09:22-0500Body mass index (BMI) [Ratio]28.12 kg/h3KwfdsGraeme Vazquez MD Work Phone: [facility]11-08-2024 09:22-0500Body temperature 97.2 [degF]Graeme Vazquez MD Work Phone: [facility]11-08-2024 09:22-0500Body vjzudm08.8 kgGraeme Vazquez MD Work Phone: [facility]11-08-2024 09:22-0500Diastolic blood mm[Hg]Graeme Vazquez MD Work Phone: [facility]11-08-2024 09:22-0500Heart rate64 /min Graeme Vazquez MD Work Phone: [facility]11-08-2024 09:22-0500Respiratory rate 16 /minGraeme Vazquez MD Work Phone: [facility]11-08-2024 09:22-2869MhG9% (BldA) [Mass fraction]98 %Graeme Vazquez MD Work Phone: [facility]11-08-2024 09:22-0500Systolic blood zmsesesb485 mm[Hg]Graeme Vazquez MD Work Phone: [facility]08-05-2024 12:47-0400Body lrardk569 cm Graeme Vazquez MD Work Phone: [facility] HospitalComment on above:verifed by 2 no shoes 05-18-2024 12:47-0400Body mass index (BMI) [Ratio]26.18 kg/v6HajrxGraeme Vazquez MD Work Phone: [facility]08-05-2024 12:47-0400Body temperature 97.11 [degF]Graeme Vazquez MD Work Phone: [facility]08-05-2024 12:47-0400Body ltvyin77.7 kgGraeme Vazquez MD Work Phone: [facility]08-05-2024 12:47-0400Diastolic blood dabdmxbr25 mm[Hg]Graeme Vazuqez MD Work Phone: [facility]08-05-2024 12:47-0400Heart rate66 /min Graeme Vazquez MD Work Phone: [facility]08-05-2024 12:47-0400Respiratory rate 16 /minGraeme Vazquez MD Work Phone: [facility]08-05-2024 12:47-9583LwX6% (BldA) [Mass fraction]99 %Graeme Vazquez MD Work Phone: [facility]08-05-2024 12:47-0400Systolic blood hwyaguyf861 mm[Hg]Graeme Vazquez MD Work Phone: [facility]06-09-2024 22:58-0400Diastolic blood eyspnlvt54 mm[Hg][place] [facility]06-09-2024 22:58-0400Heart rate61 /minSkvng [facility]06-09-2024 22:58-0400Respiratory rate14 /minSkvng [facility]06-09-2024 22:58-5123EhJ4% (BldA) [Mass fraction]96 %[place] [facility]06-09-2024 22:58-0400 Systolic blood jkupzysb172 mm[Hg][place] [facility]06-09-2024 17:55-0400Body .7 [degF][place] [facility] 03-22-2024 17:54-0400Body .97 kgChina Adam [facility] 12-20-2023 13:09-0500Body bghlyc945.6 cmPatricia Conteh RELAY MOTORMAN.[employer]UD GRADER Work Phone: [facility]03-08-2024 13:09-0500Body temperature 97.2 [degF]Patricia Conteh RELAY MOTORMAN.SPUD GRADER Work Phone: [facility]03-08-2024 13:09-0500Body .1 kgPatricia Conteh RELAY MOTORMAN.SPUD GRADER Work Phone: [phone])028-62[facility]03-08-2024 13:09-0500Diastolic blood ygqidmgx00 mm[Hg]Patricia Conteh RELAY MOTORMAN.[employer]UD GRADER Work Phone: 1(980)800-[address] [place], [place] [address]03-08-2024 13:09-0500Heart rate66 /min Patricia Conteh RELAY MOTORMAN.SPUD GRADER Work Phone: 1(405)310-54[facility]03-08-2024 13:09-0500Respiratory rate 16 /minPatricia Conteh APRN.SPUD GRADER Work Phone: 1(758)372-[address] [place], [place] [address]03-08-2024 13:09-5814VxF4% (BldA) [Mass fraction]97 %Patricia Conteh RELAY MOTORMAN.SPUD GRADER Work Phone: [facility]03-08-2024 13:09-0500Systolic blood nwzvalxd769 mm[Hg]Patricia Conteh RELAY MOTORMAN.SPUD GRADER Work Phone: [phone])589-42[facility]02-16-2024 12:51-0500Body bajrwm079.6 Vinod Vazquez MD Work Phone: [facility]02-16-2024 12:51-0500Body temperature 98.01 [degF]Graeme Vazquez MD Work Phone: [facility]02-16-2024 12:51-0500Body jznumo28.9 kgGraeme Vazquez MD Work Phone: [facility]02-16-2024 12:51-0500Diastolic blood raaubmgi44 mm[Hg]Graeme Vazquez MD Work Phone: [facility]02-16-2024 12:51-0500Heart rate71 /min Graeme Vazquez MD Work Phone: [facility]02-16-2024 12:51-0500Respiratory rate 16 /minGraeme Vazquez MD Work Phone: [facility]02-16-2024 12:51-5740VzH8% (BldA) [Mass fraction]98 %Graeme Vazquez MD Work Phone: [facility]02-16-2024 12:51-0500Systolic blood evleipzh756 mm[Hg]Graeme Vazquez MD Work Phone: [facility]12-07-2023 14:50-0500Diastolic blood mytcivae61 mm[Hg]Chair Winsome Work Phone: [facility]12-07-2023 14:50-0500Systolic blood mm[Hg]Chair Winsome Work Phone: [facility]11-16-2023 12:37-0500Body dgcyta535.6 cmVbritany Vazquez MD Work Phone: [facility]11-16-2023 12:37-0500Body temperature 97.5 [degF]Graeme Vazquez MD Work Phone: [facility]11-16-2023 12:37-0500Body pyvgrd61.75 kgGraeme Vazquez MD Work Phone: [place] [address]-16-2023 12:37-0500Diastolic blood dxaukhnf39 mm[Hg]Graeme Vazquez MD Work Phone: [facility]11-16-2023 12:37-0500Heart rate60 /min Graeme Vazquez MD Work Phone: [facility]11-16-2023 12:37-0500Respiratory rate 18 /minGraeme Vazquez MD Work Phone: [facility]11-16-2023 12:37-9778MjH6% (BldA) [Mass fraction]97 %Graeme Vazquez MD Work Phone: [facility]11-16-2023 12:37-0500Systolic blood gwladpkt518 mm[Hg]Graeme Vazquez MD Work Phone: [facility]10-05-2023 13:14-0400Body .6 cmVbritany Vazquez MD Work Phone: [facility]10-05-2023 13:14-0400Body temperature 97.59 [degF]Graeme Vazquez MD Work Phone: [facility]10-05-2023 13:14-0400Body wypqbs34.74 kgGraeme Vazquez MD Work Phone: [facility]10-05-2023 13:14-0400Diastolic blood zqcturgy20 mm[Hg]Graeme Vazquez MD Work Phone: [facility]10-05-2023 13:14-0400Heart rate61 /min Graeme Vazquez MD Work Phone: [facility]10-05-2023 13:14-0400Respiratory rate 18 /minGraeme Vazquez MD Work Phone: [facility]10-05-2023 13:14-3884VxB0% (BldA) [Mass fraction]96 %Graeme Vazquez MD Work Phone: [facility]10-05-2023 13:14-0400Systolic blood cfzaredn097 mm[Hg]Graeme Vazquez MD Work Phone: [facility]09-14-2023 13:02-0400Body .6 cmPatricia Conteh APRN.CNP Work Phone: [facility]09-14-2023 13:02-0400Body temperature 97 [degF]Patricia Conteh RELAY MOTORMAN.SPUD GRADER Work Phone: [facility]09-14-2023 13:02-0400Body fuwrws70.19 kgPatricia Conteh RELAY MOTORMAN.SPUD GRADER Work Phone: [facility]09-14-2023 13:02-0400Diastolic blood mm[Hg]Patricia Conteh RELAY MOTORMAN.SPUD GRADER Work Phone: [facility]09-14-2023 13:02-0400Heart rate61 /min Patricia Conteh RELAY MOTORMAN.SPUD GRADER Work Phone: [facility]09-14-2023 13:02-0400Respiratory rate 16 /minPatricia Conteh RELAY MOTORMAN.SPUD GRADER Work Phone: [facility]09-14-2023 13:02-4488HeO7% (BldA) [Mass fraction]99 %Patricia Conteh RELAY MOTORMAN.SPUD GRADER Work Phone: [facility]09-14-2023 13:02-0400Systolic blood oqqhrflc361 mm[Hg]Patricia Conteh RELAY MOTORMAN.SPUD GRADER Work Phone: [facility]08-24-2023 13:31-0400Body .6 cmVbritany Vazquez MD Work Phone: [facility]08-24-2023 13:31-0400Body temperature 97.81 [degF]Graeme Vazquez MD Work Phone: [facility]08-24-2023 13:31-0400Body xalgfj08.47 kgGraeme Vazquez MD Work Phone: [facility]08-24-2023 13:31-0400Diastolic blood zhhaksvp65 mm[Hg]Graeme Vazquez MD Work Phone: [facility]08-24-2023 13:31-0400Heart rate60 /min Graeme Vazquez MD Work Phone: [facility]08-24-2023 13:31-0400Respiratory rate 16 /minGraeme Vazquez MD Work Phone: [facility]08-24-2023 13:31-4058GoX9% (BldA) [Mass fraction]99 %Graeme Vazquez MD Work Phone: [facility]08-24-2023 13:31-0400Systolic blood keaenxkz094 mm[Hg]Graeme Vazquez MD Work Phone: [facility]08-03-2023 13:02-0400Body bhikde077.6 cmVbritany Vazquez MD Work Phone: [facility]08-03-2023 13:02-0400Body temperature 97.81 [degF]Graeme Vazquez MD Work Phone: [facility]08-03-2023 13:02-0400Body sxupgs93.65 kgGraeme Vazquez MD Work Phone: [facility]08-03-2023 13:02-0400Diastolic blood mm[Hg]Graeme Vazquez MD Work Phone: [facility]08-03-2023 13:02-0400Heart rate62 /min Graeme Vazquez MD Work Phone: [facility]08-03-2023 13:02-0400Respiratory rate 18 /minGraeme Vazquez MD Work Phone: [facility]08-03-2023 13:02-0541HjG1% (BldA) [Mass fraction]100 %Graeme Vazquez MD Work Phone: [facility]08-03-2023 13:02-0400Systolic blood lebgkgrm216 mm[Hg]Graeme Vazquez MD Work Phone: [facility]07-13-2023 12:54-0400Body wqsdif909.6 cmPatricia Conteh APRN.SPUD GRADER Work Phone: [facility]07-13-2023 12:54-0400Body temperature 97.39 [degF]Patricia Conteh APRN.SPUD GRADER Work Phone: [facility]07-13-2023 12:54-0400Body yvgxrc81.74 kgPatricia Conteh APRN.SPUD GRADER Work Phone: [facility]07-13-2023 12:54-0400Diastolic blood ondtmitd14 mm[Hg]Patricia Conteh RELAY MOTORMAN.SPUD GRADER Work Phone: [facility]07-13-2023 12:54-0400Heart rate66 /min Patricia Conteh APRN.SPUD GRADER Work Phone: [facility]07-13-2023 12:54-0400Respiratory rate 16 /minPatricia Conteh APRN.SPUD GRADER Work Phone: [facility]07-13-2023 12:54-0315RtT2% (BldA) [Mass fraction]97 %Patricia Conteh APRN.SPUD GRADER Work Phone: [facility]07-13-2023 12:54-0400Systolic blood yaxoszte782 mm[Hg]Patricia Conteh APRN.SPUD GRADER Work Phone: [facility]06-22-2023 10:25-0400Body uxzfvi790.6 cmPatricia Conteh APRN.SPUD GRADER Work Phone: [facility]06-22-2023 10:25-0400Body temperature 97.7 [degF]Patricia Conteh APRN.SPUD GRADER Work Phone: [facility]06-22-2023 10:25-0400Body iewuic00.29 kgPatricia Conteh APRN.SPUD GRADER Work Phone: [facility]06-22-2023 10:25-0400Diastolic blood yfzkubdk49 mm[Hg]Patricia Conteh APRN.SPUD GRADER Work Phone: [facility]06-22-2023 10:25-0400Heart rate67 /min Patriica Conteh APRN.SPUD GRADER Work Phone: [facility]06-22-2023 10:25-0400Respiratory rate 16 /minPatricia Conteh APRN.SPUD GRADER Work Phone: [facility]06-22-2023 10:25-8157NnR1% (BldA) [Mass fraction]97 %Patricia Conteh RELAY MOTORMAN.SPUD GRADER Work Phone: [facility]06-22-2023 10:25-0400Systolic blood mm[Hg]Patricia Conteh RELAY MOTORMAN.SPUD GRADER Work Phone: [facility]05-30-2023 10:00-0400Body yphhcj43.56 kgCamtwyla Nelson Other [employer] Other 05-30-2023 10:00-0400Diastolic blood msywsgcb30 mm[Hg] Shawn Nelson Other [employer] Other 05-30-2023 10:00-0400Systolic blood xdydwchu264 mm[Hg] Shawn Nelson Other [employer] Other 04-20-2023 08:17-0400Body okhawy918.6 Vinod Vazquez MD Work Phone: [facility]04-20-2023 08:17-0400Body temperature 97.5 [degF]Graeme Vazquez MD Work Phone: [facility]04-20-2023 08:17-0400Body vaeiue03.19 kgGraeme Vazquez MD Work Phone: [facility]04-20-2023 08:17-0400Diastolic blood iniegxvj40 mm[Hg]Graeme Vazquez MD Work Phone: [facility]04-20-2023 08:17-0400Heart rate59 /min Graeme Vazquez MD Work Phone: [facility]04-20-2023 08:17-0400Respiratory rate 16 /minGraeme Vazquez MD Work Phone: [facility]04-20-2023 08:17-7968QtG4% (BldA) [Mass fraction]97 %Graeme Vazquez MD Work Phone: [facility]04-20-2023 08:17-0400Systolic blood rtoyakla797 mm[Hg]Graeme Vazquez MD Work Phone: [facility]03-22-2023 14:58-0400Body mieobn628.6 cmVbritany Vazquez MD Work Phone: [facility]03-22-2023 14:58-0400Body temperature 97.3 [degF]Graeme aVzquez MD Work Phone: [facility]03-22-2023 14:58-0400Body ciyrxs81.2 kgGraeme Vazquez MD Work Phone: [facility]03-22-2023 14:58-0400Diastolic blood fsmudxok92 mm[Hg]Graeme Vazquez MD Work Phone: [facility]03-22-2023 14:58-0400Heart rate63 /min Graeme Vazquez MD Work Phone: [facility]03-22-2023 14:58-0400Respiratory rate 16 /minGraeme Vazquez MD Work Phone: [facility]03-22-2023 14:58-5433EtP0% (BldA) [Mass fraction]97 %Graeme Vazquez MD Work Phone: [facility]03-22-2023 14:58-0400Systolic blood zoiutbie443 mm[Hg]Graeme Vazquez MD Work Phone: [place] [address]-22-2023 09:20-0500Blood Pressure LocationPaeliza RODRIGUEZ [facility]02-22-2023 09:20-0500Diastolic blood mm[Hg]Jian RODRIGUEZ [facility]02-22-2023 09:20-0500Heart rate59 /minPaeliza RODRIGUEZ [facility]02-22-2023 09:20-0500Systolic blood hiurltvw049 mm[Hg]Jian RODRIGUEZ [facility] [place] [address]-13-2023 08:40-0500Body aydrre813.6 Vinod Vazquez MD Work Phone: [place] [address]-13-2023 08:40-0500Body temperature 97.7 [degF]Graeme Vazquez MD Work Phone: [place] [address]-13-2023 08:40-0500Body .47 kgGraeme Vazquez MD Work Phone: [place] [address]-13-2023 08:40-0500Diastolic blood tndmugzq40 mm[Hg]Graeme Vazquez MD Work Phone: [place] [address]-13-2023 08:40-0500Heart rate60 /min Graeme Vazquez MD Work Phone: [place] [address]-13-2023 08:40-0500Respiratory rate 16 /minGraeme Vazquez MD Work Phone: [place] [address]-13-2023 08:40-5274OzM2% (BldA) [Mass fraction]97 %Graeme Vazquez MD Work Phone: [place] [address]-13-2023 08:40-0500Systolic blood wdmkefii743 mm[Hg]Graeme Vazquez MD Work Phone: [facility]11-30-2022 14:05-0500Body rqqska742.6 Jen Saenz MD Work Phone: [facility] OhioZaevzt66-60-5045 14:05-0500Body qmslul85.93 kgNicholas Saenz MD Work Phone: [phone][facility] OhioGpkqti51-02-3842 14:05-0500Diastolic blood mjijkflh25 mm[Hg]Nicholas Saenz MD Work Phone: [phone][facility] OhioDyexbp52-12-7432 14:05-0500Heart rate79 /min Nicholas Saenz MD Work Phone: [facility] OhioCdgssi80-16-7866 14:05-0500Systolic blood hmxrzsoc987 mm[Hg]Nicholas Saenz MD Work Phone: [place] [address]-30-2022 10:56-0500Diastolic blood dczlypiq23 mm[Hg]Pacc 4 Work Phone: [phone]11-30-2022 10:56-0500Systolic blood mm[Hg]Pacc 4 Work Phone: [facility]11-30-2022 10:55-0500Body .6 cmPacc 4 Work Phone: [phone]11-30-2022 10:55-0500Body temperature 98.29 [degF]Pacc 4 Work Phone: [phone] [address]-30-2022 10:55-0500Body ymtziv33.93 kgPacc 4 Work Phone: [phone]11-30-2022 10:55-0500Heart rate66 /min Pacc 4 Work Phone: [phone]11-30-2022 10:55-9150AwA7% (BldA) [Mass fraction]96 %Pacc 4 Work Phone: [phone]05-26-2022 11:15-0400Body qgdija25.65 kgDavid oKmal Other [employer] Other [phone] 12:37-0400Body zoadea253.6 cmScristofer Perea MD Work Phone: [facility]05-23-2022 12:37-0400Body temperature 97.81 [degF]Soren Perea MD Work Phone: [facility]05-23-2022 12:37-0400Body emzzft88.01 kgSiwally Perea MD Work Phone: [facility]05-23-2022 12:37-0400Diastolic blood pwniurav39 mm[Hg]Soren Perea MD Work Phone: [facility]05-23-2022 12:37-0400Heart rate56 /min Soren Perea MD Work Phone: [facility]05-23-2022 12:37-0400Respiratory rate 16 /minScristofer Perea MD Work Phone: [facility]05-23-2022 12:37-0686SoE8% (BldA) [Mass fraction]97 %Soren Perea MD Work Phone: [facility]05-23-2022 12:37-0400Systolic blood izfnauyk157 mm[Hg]Soren Perea MD Work Phone: [facility]05-09-2022 12:37-0400Body kytsjz188.6 cmCorazon Maxwell PA-C Work Phone: [facility]05-09-2022 12:37-0400Body temperature 97.59 [degF]Corazon Maxwell PA-C Work Phone: [facility]05-09-2022 12:37-0400Body hacsrl98.19 kgMintamara Maxwell PA-C Work Phone: [place] [address]-09-2022 12:37-0400Diastolic blood pyepgsgz60 mm[Hg]Corazon Beller PA-C Work Phone: [facility]05-09-2022 12:37-0400Heart rate67 /min Corazon Beller PA-C Work Phone: [facility]05-09-2022 12:37-0400Respiratory rate 18 /minMintamara Alissa PA-C Work Phone: [facility]05-09-2022 12:37-2890ZuN8% (BldA) [Mass fraction]100 %Corazon Beller PA-C Work Phone: [facility]05-09-2022 12:37-0400Systolic blood oewdfyyp081 mm[Hg]Corazon Beller PA-C Work Phone: [facility]05-02-2022 12:56-0400Body nyxgig820.6 cmScristofer Perea MD Work Phone: [facility]05-02-2022 12:56-0400Body temperature 97.39 [degF]Soren Perea MD Work Phone: [facility]05-02-2022 12:56-0400Body ayhoee33.46 kgSiwally Perea MD Work Phone: [facility]05-02-2022 12:56-0400Diastolic blood oizaioyy95 mm[Hg]Soren Perea MD Work Phone: [facility]05-02-2022 12:56-0400Heart rate52 /min Soren Perea MD Work Phone: [facility]05-02-2022 12:56-0400Respiratory rate 18 /minScristofer Perea MD Work Phone: [facility]05-02-2022 12:56-2180ThU0% (BldA) [Mass fraction]99 %Soren Perea MD Work Phone: [place] [address]-02-2022 12:56-0400Systolic blood nbrgsqbi993 mm[Hg]Soren Perea MD Work Phone: [facility]04-25-2022 12:40-0400Body vhmuri318.6 cmScristofer Perea MD Work Phone: [facility]04-25-2022 12:40-0400Body temperature 97.59 [degF]Soren Perea MD Work Phone: [facility]04-25-2022 12:40-0400Body cmrywi42.91 kgSiwally Perea MD Work Phone: [facility]04-25-2022 12:40-0400Diastolic blood bfqcpehm01 mm[Hg]Soren Perea MD Work Phone: [facility]04-25-2022 12:40-0400Heart rate57 /min Soren Perea MD Work Phone: [facility]04-25-2022 12:40-0400Respiratory rate 18 /minScristofer Perea MD Work Phone: [facility]04-25-2022 12:40-2695InT8% (BldA) [Mass fraction]100 %Soren ePrea MD Work Phone: [facility]04-25-2022 12:40-0400Systolic blood rqaplcol545 mm[Hg]Soren Perea MD Work Phone: [facility]04-04-2022 12:35-0400Body .6 cmMintamara Maxwell PA-C Work Phone: [facility]04-04-2022 12:35-0400Body temperature 98.1 [degF]Corazon Maxwell PA-C Work Phone: [facility]04-04-2022 12:35-0400Body jvitzm87.28 kgMintmaara Maxwell PA-C Work Phone: [place] [address]-04-2022 12:35-0400Diastolic blood uaselgad82 mm[Hg]Corazon Beller PA-C Work Phone: [facility]04-04-2022 12:35-0400Heart rate63 /min Corazon Beller PA-C Work Phone: [facility]04-04-2022 12:35-0400Respiratory rate 16 /minMintamara Alissa PA-C Work Phone: [facility]04-04-2022 12:35-5222EiM5% (BldA) [Mass fraction]98 %Corazon Beller PA-C Work Phone: [facility]04-04-2022 12:35-0400Systolic blood qucawrux148 mm[Hg]Corazon Beller PA-C Work Phone: [facility]03-28-2022 09:09-0400Body ncjruh494.6 cmScristofer Perea MD Work Phone: [facility]03-28-2022 09:09-0400Body temperature 97.11 [degF]Soren Perea MD Work Phone: [facility]03-28-2022 09:09-0400Body hannjn62.55 kgSiwally Perea MD Work Phone: [facility]03-28-2022 09:09-0400Diastolic blood keppkntu10 mm[Hg]Soren Perea MD Work Phone: [facility]03-28-2022 09:09-0400Heart rate62 /min Soren Perea MD Work Phone: [place] [address]-28-2022 09:09-0400Respiratory rate 18 /minScristofer Perea MD Work Phone: [facility]03-28-2022 09:09-7872YwO3% (BldA) [Mass fraction]98 %Soren Perea MD Work Phone: [place] [address]-28-2022 09:09-0400Systolic blood nxkythht546 mm[Hg]Soren Perea MD Work Phone: [facility] Encounters Encounter DateEncounter TypeCare ProviderFacilityStart: 07-19-2025 End: 68-21-5860ibmldtmowqBSSKND MOJ.[facility] Start: 06-30-2025 End: 83-07-7031wvvdyzjmryZZSB [facility]: 05-17-2025 End: 50-16-7981Nswpga outpatient visit 15 minutesHarpreet Avalos RELAY MOTORMAN-SPUD GRADER Work Phone: [facility] ClinicComment on above:Chest wall ulcer, 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-HCC) (Primary Dx); Infection of pacemaker pocket, initial encounter; Open wound of left chest wall, initial encounterStart: 05-17-2025 End: 12-86-6939ookffxrgtkSZJGAITFO L BALLBlanchard [facility] Start: 05-14-2025 End: 44-64-4032gtsorsouykHCHISMercy Health Willard Hospitaltart: 05-08-2025 End: 73-03-9467Hvdfvg follow up visit related to original Yesenia Hernandez APRN-SPUD GRADER Work Phone: [facility] CardiologyComment on above:Open wound of left chest wall, initial encounter (Primary Dx); Pacemaker complications, initial encounterStart: 72-33-0901bvbwipbzjvCGHBKBJKarely HERNANDEZKettering Health Greene Memorialtart: 05-05-2025 End: 27-78-6768Qfvhr abstractingScanning Provider ExternalProMedica Physicians CardiologyStart: 05-05-2025 End: 57-83-6335Kjjwceeyf encounterMegan Gigi RNProMedica Physicians Cardiology Comment on above:Extraction siteReminderStart: 05-04-2025 End: 37-83-5516Kgaslhrbqsgbw procedureHarpreet Avalos RELAY MOTORMAN-SPUD GRADER Work Phone: [facility] Wound Care OutpatientStart: 05-03-2025 End: 04-87-6900Rksuuf outpatient new 30 minutesSallyjohnny Russo Jaxon RELAY MOTORMAN-SPUD GRADER Work Phone: [facility] - Wound Care ClinicComment on above:Open wound of left chest wall, initial encounter (Primary Dx); 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; Infection of pacemaker pocket, initial encounterStart: 05-03-2025 End: 67-18-8868jueiivpbdzLZZYGYNKG L BALLBlanchard Valley [facility] Start: 04-22-2025 End: 77-87-6461Xrnbgldby encounterGraeme Vazquez MD Work Phone: Hematology/OncologyComment on above:Patient Update Start: 04-19-2025 End: 91-29-1128Etygjblill and management of inpatientDOGerman Hospitaltart: 04-19-2025 End: 70-61-0907Cqflgyfnx department patient visitSSelect Medical Specialty Hospital - Akrontart: 37-78-5656nnzgubhqsuDMJLM [facility] AmbulatoryStart: 03-16-2025 End: 33-90-8183yjmhtdfuzfGJTPSumma Healthtart: 02-23-2025 End: 72-52-5800raqbcxwlvwIGXCSumma Healthtart: 02-17-2025 End: 11-13-4993gdxvaumhboFUZDBUP [facility] Campustart: 61-97-3262sjabygmyyaAPQCUpper Valley Medical Centertart: 02-02-2025 End: 14-08-6485haboatcmhjIBJBUpper Valley Medical Centertart: 01-21-2025 End: 92-12-6224ovvrjfcuirQBMCSumma Healthtart: 01-20-2025 End: 87-25-8288hmcdhwplidKABBMercy Health Allen Hospitaltart: 01-20-2025 End: 80-15-0043Bbnqcmljk for other preprocedural examinationPAUL [facility] HospitalStart: 01-20-2025 End: 61-11-5917Gifrtrqlve hospital visit by Radu Stubbs CNP Work Phone: [facility] LABStart: 01-20-2025 End: 61-71-8308esnqaxpicnHCHUSumma Healthtart: 01-19-2025 End: 14-26-6809mornotbnvqBCAESumma Healthtart: 01-08-2025 End: 11-46-2910mihztkddjvWCSNHR SONIAOhioHealth Grant Medical Center Start: 01-04-2025 End: 21-97-7093jiluxngaqyIGVBBRO L ANJELERMriverside methodist hospitaleli [facility] HospitalStart: 01-04-2025 End: 31-94-6060Oilvhzwrmh hospital visit by Radu Stubbs CNP Work Phone: [facility] LABComment on above:AbscessStart: 10-23-2024 End: 89-70-0175Wszckb outpatient visit 25 minutesGraeme Vazquez MD Work Phone: Hematology/OncologyComment on above:Malignant neoplasm of overlapping sites of bladder (HCC) (Primary Dx); Malignant neoplasm of urinary bladder, unspecified site (HCC); CKD (chronic kidney disease), stage V (HCC); Disorder of thyroid; Malignant neoplasm of ureteric orifice (HCC)Start: 10-23-2024 End: 58-74-6578qzmnllqanwQCDFS ABHYANKARFacility:[facility] Hospitaltart: 10-21-2024 End: 07-04-7210jtyqyhwgceGVFHK W MIGHTUc [facility] HospitalStart: 10-21-2024 End: 23-57-8795Vxtigfgwed hospital visit by Radu Stubbs CNP Work Phone: mthz LaboratoryComment on above:Congenital hypothyroidism; DyslipidemiaStart: 10-16-2024 End: 06-90-5736mpdnofdbfzENEJI W MIGHTFacility:[facility] HospitalStart: 10-16-2024 End: 21-34-2780Kicmjplhag hospital visit by physicianArrival Time Radiology Work Phone: Radiology Pet CTComment on above:Malignant neoplasm of overlapping sites of bladder (HCC) [C67.8]Start: 09-29-2024 End: 63-25-6481xkvmvgoeonYGJMWilson [address] Hospitaltart: 09-16-2024 End: 33-40-6078ecwzcttqggRFPQIFFUniversity Hospitals Samaritan Medical Centertart: 09-10-2024 End: 46-30-6195Dknigtoxx department patient visitLeni Santiago MD Work Phone: [facility] EDComment on above:Chest discomfort (Primary Dx)Start: 08-25-2024 End: 66-53-8795wsaydhsgqoZVGTWilson [address] Hospitaltart: 08-21-2024 End: 07-34-7362Mnynmi outpatient visit 25 minutesGraeme Vazquez MD Work Phone: Hematology/OncologyComment on above:Malignant neoplasm of overlapping sites of bladder (HCC) (Primary Dx); CKD (chronic kidney disease), stage V (HCC); Malignant neoplasm of urinary bladder, unspecified site (HCC)Start: 08-21-2024 End: 42-42-7698eaooiexbatUFVNM ABHYANKARFacility:[facility] Hospitaltart: 06-29-2024 End: 99-05-6318wwivuiwwneJUABX ABHYANKARFacility:[facility] Hospitaltart: 06-29-2024 End: 63-82-8587Habmtrggbq hospital visit by physicianArrival Time Radiology Work Phone: Radiology Pet CTComment on above:Malignant neoplasm of overlapping sites of bladder (HCC) [C67.8]Start: 05-18-2024 End: 91-74-5067Mbcxyo outpatient visit 40 minutesGraeme Vazquez MD Work Phone: Hematology/OncologyComment on above:Malignant neoplasm of overlapping sites of bladder (HCC) (Primary Dx); CKD (chronic kidney disease), stage V (HCC); Malignant neoplasm of urinary bladder, unspecified site (HCC); Disorder of thyroid; Abnormal blood chemistryStart: 05-18-2024 End: 89-16-2790popptofsvxGDJWKUQ M HOYFacility:[facility] Hospitaltart: 54-17-9349Tyjmgywva encounterTifhailee Mckeon RN Work Phone: Hematology/OncologyComment on above:Care Coordination (Diarrhea >1 month)Start: 03-22-2024 End: 27-14-0674Nrguovofg department patient visitSean [facility]ney [facility] EDComment on above:Elevated troponin (Primary Dx)Start: 03-20-2024 Telephone encounterGraeme Vazquez MD Work Phone: Cancer Appts MCComment on above:Appointment Cancelled (Diarrhea/)Start: 45-32-4485E-mail encounter from Atilio Emmanuel APRN.CNP Work Phone: [facility]Start: 81-82-6621Lspnusf encounter Serina Emmanuel APRN.CNP Work Phone: [facility] CLINICComment on above:Actionable FindingStart: 13-49-5716Zmgkqgmfb encounterGraeme Vazquez MD Work Phone: Cancer Appts MCComment on above:No ShowStart: 01-24-2024 End: 39-62-6531Goynrzthmr hospital visit by physicianArrival Time Radiology Work Phone: Radiology Pet CTComment on above:Malignant neoplasm of urinary bladder, unspecified site (HCC) [C67.9]Start: 12-20-2023 End: 94-64-9319gczkuokehjDbhsfRao Conteh APRN.CNP Work Phone: Hematology/OncologyComment on above:Malignant neoplasm of overlapping sites of bladder (HCC) (Primary Dx); CKD (chronic kidney disease), stage V (HCC); Abnormal weight loss; Malignant neoplasm of urinary bladder, unspecified site (HCC)Start: 12-20-2023 End: 07-70-9988Mzmhaak encounter French Conteh APRN.CNP Work Phone: SANDUSKYStart: 11-29-2023 End: 29-30-3415wqbaudgoixPsume [address] [place] Work Phone: Hematology/OncologyComment on above:Malignant neoplasm of overlapping sites of bladder (HCC) (Primary Dx); Malignant neoplasm of right kidney, except renal pelvis (HCC); Malignant neoplasm of ureter, unspecified laterality (HCC)Start: 11-29-2023 End: 01-55-7280Yoebut outpatient visit 40 minutesGraeme Vazquez MD Work Phone: Hematology/OncologyComment on above:Malignant neoplasm of overlapping sites of bladder (HCC) (Primary Dx); CKD (chronic kidney disease), stage V (HCC); Disorder of thyroid; Malaise and fatigueStart: 93-59-6817Ypjokaife encounterMargot So RN Work Phone: Hematology/OncologyComment on above:Care Coordination (Follow Up Appointment)Start: 45-69-8830Aitilsdlb encounterGraeme Vazquez MD Work Phone: Cancer Appts MCStart: 09-19-2023 End: 50-78-7706bidedrfdzhUsurb [address] [place] Work Phone: Hematology/OncologyComment on above:Malignant neoplasm of overlapping sites of bladder (HCC) (Primary Dx); Malignant neoplasm of right kidney, except renal pelvis (HCC); Malignant neoplasm of ureter, unspecified laterality (HCC)Start: 08-29-2023 End: 54-13-8384Feuted outpatient visit 25 minutesGraeme Vazquez MD Work Phone: Hematology/OncologyComment on above:Malignant neoplasm of overlapping sites of bladder (HCC) (Primary Dx); Malignant neoplasm of ureter, unspecified laterality (HCC); Malaise and fatigueStart: 08-23-2023 End: 01-06-7509Xkgqagildt hospital visit by physicianArrival Time Radiology Work Phone: Radiology Pet CTComment on above:Malignant neoplasm of overlapping sites of bladder (HCC) [C67.8]Start: 64-85-3776Xylsrxnpc encounter Margot So RN Work Phone: Hematology/OncologyComment on above:Care Coordination (Sore Throat)Start: 07-18-2023 End: 36-08-0305ntluuwceocMengd 13 [place] Work Phone: Hematology/OncologyComment on above:Malignant neoplasm of overlapping sites of bladder (HCC) (Primary Dx); Malignant neoplasm of right kidney, except renal pelvis (HCC); Malignant neoplasm of ureter, unspecified laterality (HCC)Start: 07-18-2023 End: 67-60-9119Tvayaq outpatient visit 25 minutesGraeme Vazquez MD Work Phone: Hematology/OncologyComment on above:Malignant neoplasm of overlapping sites of bladder (HCC) (Primary Dx)Start: 06-27-2023 End: 93-91-6385nedowagylfMvjow 13 [place] Work Phone: Hematology/OncologyComment on above:Malignant neoplasm of overlapping sites of bladder (HCC) (Primary Dx); Malignant neoplasm of right kidney, except renal pelvis (HCC); Malignant neoplasm of ureter, unspecified laterality (HCC)Malignant neoplasm of overlapping sites of bladder (HCC) (Primary Dx); Malaise and fatigueStart: 06-27-2023 End: 04-90-2112Brablcc encounter French Conteh APRN.CNP Work Phone: SANDUSKYStart: 06-18-2023 End: 96-01-7147tckdtqgqfgCzftvq J Stein MD Work Phone: UrologyComment on above:Urothelial cancer (HCC) (Primary Dx)Start: 06-18-2023 End: 99-77-9810Sjhjiurysufh consultation with patientGalen Bhatt MD Work Phone: [facility] MAINStart: 06-06-2023 End: 51-00-2430ofquvjutbqJnumt 15 [place] Work Phone: Hematology/OncologyComment on above:Malignant neoplasm of overlapping sites of bladder (HCC) (Primary Dx); Malignant neoplasm of right kidney, except renal pelvis (HCC); Malignant neoplasm of ureter, unspecified laterality (HCC)Start: 06-06-2023 End: 15-80-0572Wwrinw outpatient visit 25 minutesGraeme Vazquez MD Work Phone: Hematology/OncologyComment on above:Malignant neoplasm of overlapping sites of bladder (HCC) (Primary Dx); Malignant neoplasm of ureter, unspecified laterality (HCC); Disorder of thyroidStart: 05-31-2023 End: 65-60-7286MztlmsCirtbz J Stein MD Work Phone: UrologyComment on above:Refill RequestMalignant neoplasm of overlapping sites of bladder (HCC) [C67.8]Start: 05-16-2023 End: 07-55-3354epfkgawffjScccv Anthony Fam Work Phone: Hematology/OncologyComment on above:Malignant neoplasm of overlapping sites of bladder (HCC) (Primary Dx); Malignant neoplasm of right kidney, except renal pelvis (HCC); Malignant neoplasm of ureter, unspecified laterality (HCC)Start: 05-16-2023 End: 54-29-6886Kgnjxp outpatient visit 25 minutesGraeme Vazquez MD Work Phone: Hematology/OncologyComment on above:Malignant neoplasm of overlapping sites of bladder (HCC) (Primary Dx)Start: 05-07-2023 End: 97-49-2959ycqewxluhwHxzlhd J Stein MD Work Phone: UrologyComment on above:Malignant neoplasm of urothelium (HCC) (Primary Dx)Start: 05-07-2023 End: 69-11-9362Htvfpavzolrt consultation with Harrison Bhatt MD Work Phone: [facility] MAINStart: 04-25-2023 End: 43-71-5480Hztplp Eun Sneed MD Work Phone: Hematology/OncologyComment on above:Dry mouth (Primary Dx); Other general symptoms and signsMalignant neoplasm of overlapping sites of bladder (HCC) (Primary Dx)Malignant neoplasm of overlapping sites of bladder (HCC) (Primary Dx); Malignant neoplasm of right kidney, except renal pelvis (HCC); Malignant neoplasm of ureter, unspecified laterality (HCC)Start: 04-04-2023 End: 36-22-6764yimnccstcxEikaq Martinez APRN.CNP Work Phone: Hematology/OncologyComment on above:Malignant neoplasm of overlapping sites of bladder (HCC) (Primary Dx)Malignant neoplasm of overlapping sites of bladder (HCC) (Primary Dx); Malignant neoplasm of right kidney, except renal pelvis (HCC); Malignant neoplasm of ureter, unspecified laterality (HCC)Start: 04-04-2023 End: 88-00-9523Gdxbtvp encounter procedurePatricia Conteh APRN.CNP Work Phone: SANDUSKYStart: 03-12-2023 End: 30-86-7789yzemezxbbdQrxdoyh Ditty Other [employer] Other Start: 77-01-5880Yskbfsv encounter procedureShawn NietoG GastroenterologyStart: 03-10-2023 End: 47-19-4457ocyigwvquaWC DI OCHOA .Facility:Z9Zygbk: 89-40-5804Zdtirtmrm encounterGraeme Vazquez MD Work Phone: Cancer Appts MCComment on above:Return Call Request; Call ptStart: 01-31-2023 End: 48-14-4764kpmaxmacwlSuata [address] [place] Work Phone: Hematology/OncologyComment on above:Malignant neoplasm of overlapping sites of bladder (HCC) (Primary Dx); Malignant neoplasm of right kidney, except renal pelvis (HCC); Malignant neoplasm of ureter, unspecified laterality (HCC)Start: 01-31-2023 End: 27-41-7921Izqcli outpatient visit 25 minutesGraeme Vazquez MD Work Phone: Hematology/OncologyComment on above:Malignant neoplasm of overlapping sites of bladder (HCC) (Primary Dx)Start: 01-23-2023 End: 00-94-8166Llbhrepswe hospital visit by physicianArrival Time Radiology Work Phone: Radiology Pet CTComment on above:Malignant neoplasm of overlapping sites of bladder (HCC) [C67.8]Start: 01-11-2023 End: 04-33-5766owsctrgmxhBT SERGIO SNEED .Facility:K7Sjqzr: 11-30-6630Zhhvlxxyq encounterMargot So RN Work Phone: Hematology/OncologyComment on above:Care Coordination (C1D1 Post Treatment Call)Start: 01-02-2023 End: 65-86-5601lfwffmaytzXnmda [address] [place] Work Phone: Hematology/OncologyComment on above:Malignant neoplasm of overlapping sites of bladder (HCC) (Primary Dx); Malignant neoplasm of right kidney, except renal pelvis (HCC); Malignant neoplasm of ureter, unspecified laterality (HCC)Start: 01-02-2023 End: 60-27-1055Qjzulp outpatient visit 25 minutesGraeme Vazquez MD Work Phone: Hematology/OncologyComment on above:Malignant neoplasm of overlapping sites of bladder (HCC) (Primary Dx); Malignant neoplasm of ureter, unspecified laterality (HCC)Start: 12-31-2022 ambulatoryMargot So RN Work Phone: Hematology/OncologyComment on above:Non-Chemotherapy Treatment (Pembrolizumab)Start: 06-11-5193Hdighmyye Jesi Alarcon MD Work Phone: [facility] Regional HospitalComment on above:Patient UpdateStart: 12-18-2022 End: 48-82-6231edxndcliatIvoytir R WATERSFacility:EU SanduskyStart: 12-17-2022 Telephone encounterLauren Mckeon RN Work Phone: Hematology/OncologyComment on above:Care Coordination (Reschedule appointment)Start: 12-08-2022 End: 61-66-2783gxjztyljudQQ SERGIO SNEED .Facility:O2Wnjak: 12-05-2022 End: 44-59-4526ubwhhdjyroKjsrbqg R WATERSFacility:EU [place]uskyStart: 12-05-2022 End: 11-27-9207Kvlyfzs encounter procedureJian RODRIGUEZ [facility] [place] Start: 11-26-2022 End: 46-82-0659rfutuunrsjYzvkc Abhyankar MD Work Phone: Hematology/OncologyComment on above:Malignant neoplasm of ureter, unspecified laterality (HCC) (Primary Dx)Start: 11-26-2022 End: 77-73-6362Mkfgolq encounter Félix Vazquez MD Work Phone: SANDUSKYStart: 11-20-2022 End: 02-50-5361ydrbtcneegNxjfbc J Stein MD Work Phone: UrologyComment on above: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, unspecified laterality (HCC) (Primary Dx)Start: 11-20-2022 End: 16-85-3322Rogmxtwzzvaq consultation with Harrison Bhatt MD Work Phone: [facility] MAINStart: 11-09-2022 End: 90-52-5407koxlsriqxmGW DOUGLAS HOY .Facility:P6Jkqwj: 10-10-2022 End: 43-75-0849qmnodeqwkhKallyev Ditty Other [employer] Other Start: 83-71-6798Wiimgpsge encounterCamerodonn ChuayFPG GastroenterologyStart: 09-26-2022 End: 92-99-6906ymvrzxqfkwFA SERGIO SNEED .Facility:S1Jfbwm: 09-12-2022 End: 85-71-2916Gznoolc encounter Ang Saenz MD Work Phone: UrologyComment on above:Urothelial carcinoma (HCC) (Primary Dx)Start: 09-12-2022 End: 82-20-1626swoioavngsCuuj [address] 4 Work Phone: Pre AnesthesiaComment on above:Pre-op evaluation (Primary Dx); Hypertensive heart disease with heart failure (HCC); Gastro-esophageal reflux disease without esophagitis; Ulcerative pancolitis (HCC); Stage 3 chronic kidney disease, unspecified whether stage 3a or 3b CKD (HCC); 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, unspecified laterality (HCC)Start: 09-12-2022 End: 42-65-0269Guajtwsmf to [place] [address] Work Phone: [facility] MAINStart: 09-12-2022 End: 17-51-1586Cyaiyvrznldue examination [place] [address] Work Phone: [facility] AnesthesiaStart: 07-30-2022 End: 69-07-5722dwrsqxbgduBeyqiwt Dijuancarlos Other [employer] Other Start: 48-97-2745Kuqslqutw encounterCamtwyla NelsonFPG GastroenterologyStart: 96-12-0538czkgpofeglUujbhs L Smith RNGlickman Urological &Start: 03-26-2022 End: 85-72-3863sxygrxaesmYfdis O'Donohue PA-C Work Phone: UrologyComment on above:Urothelial carcinoma (HCC) (Primary Dx)Start: 03-26-2022 End: 24-43-7699Emrmfavtypjv consultation with Lottie Tejada PA-C Work Phone: [facility] MAINStart: 45-13-5603skbtcycfqc Claire Salazar Urological &Start: 03-13-2022 End: 40-57-4547upzfiijnabGxvzko J Stein MD Work Phone: UrologyComment on above: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, unspecified laterality (HCC) (Primary Dx); Acute cystitis without hematuriaStart: 03-13-2022 End: 92-89-7335Ncghtsmgjmhh consultation with Harrison Bhatt MD Work Phone: [facility] MAINStart: 03-08-2022 End: 39-84-2684bnbwvyeotuMnajf Komal Other [employer] Other Start: 30-71-8986Bhlerv outpatient visit 25 minutes Augusto SanchezG GastroenterologyStart: 03-05-2022 End: 19-92-2192xffnehbgnyClecrojxu Kunte MD Work Phone: Hematology/OncologyComment on above:Malignant neoplasm of ureter, unspecified laterality (HCC) (Primary Dx)Start: 03-05-2022 End: 35-86-4009Httrnno encounter procedureScristofer Perea MD Work Phone: S[place]KYStart: 02-19-2022 End: 16-28-2261vpaorsgrqiKdqzfYoni Maxwell PA-C Work Phone: Hematology/OncologyComment on above:Malignant neoplasm of ureter, unspecified laterality (HCC) (Primary Dx)Start: 02-19-2022 End: 04-64-8315Wsydnfn encounter procedureCorazon Maxwell PA-C Work Phone: SANDUSKYStart: 02-12-2022 End: 75-63-7144xrcvqzgumxTzfqszhuo Kunte MD Work Phone: Hematology/OncologyComment on above:Malignant neoplasm of ureter, unspecified laterality (HCC) (Primary Dx)Start: 02-12-2022 End: 26-55-4344Rinniwo encounter procedureScristofer Perea MD Work Phone: SANDUSKYStart: 02-05-2022 End: 63-57-0223sztgnfrlcaOlzeqlhqi Kunte MD Work Phone: Hematology/OncologyComment on above:Malignant neoplasm of ureter, unspecified laterality (HCC) (Primary Dx)Start: 02-05-2022 End: 53-89-6998Ujvtftf encounter procedureScristofer Perea MD Work Phone: SANDUSKYStart: 01-22-2022 End: 55-53-0538zxjkaxjcpsSsngy Alek Fam Work Phone: Hematology/OncologyComment on above:Malignant neoplasm of ureter, unspecified laterality (HCC) (Primary Dx)Start: 01-15-2022 End: 14-32-9608ctwefqagqgOohwc M Musser PA-C Work Phone: Hematology/OncologyComment on above:Malignant neoplasm of ureter, unspecified laterality (HCC) (Primary Dx)Start: 01-15-2022 End: 73-04-6752Lrdlkbp encounter procedureCorazon Maxwell PA-C Work Phone: SANDUSKYStart: 01-08-2022 End: 34-96-4695xzldxoijebHwbuvqkgd Kunte MD Work Phone: Hematology/OncologyComment on above:Malignant neoplasm of ureter, unspecified laterality (HCC) (Primary Dx)Start: 01-08-2022 End: 41-03-8783Tkcsuvi encounter procedureScristofer Perea MD Work Phone: SANDUSKYStart: 07-08-2020 End: 30-82-6807Tbysgfxoqw hospital visit by physicianAffinity Health Partners Work Phone: RadiologyComment on above: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, unspecified laterality (HCC) [C64.9]Start: 04-29-2018 End: 57-21-8745Rfitrno encounterDEFAULT PHYSICIANFacility:[facility]ENTERtart: 04-21-2018 End: 14-99-7624Nxupkgn encounterDEFAULT PHYSICIANFacility:[facility] Procedures DateProcedureProcedure DetailPerforming ClinicianStart: 02-24-7400MTDALPB Nikhil Avalos APRN-ABIOLA Work Phone: Start: 27-76-8722Xtetzo-up visitFollow-upADELINA FREEMANWELLStart: 95-37-6374Ommptj-up visitFollow-Lisa WUOPHERStart: 21-63-1670Yoiromyw screenDOUGLAS HOYComment on above:Performed By: #### WCSUP #### [facility] ([facility]) [address] [place] [address] VIRStart: 06-18-6591Drzhn metabolic panel calcium totalPaul Lily FOUNTAIN Work Phone: Start: 48-76-0085Srpqa panelBrett W Might RELAY MOTORMAN - [employer] GRADER Work Phone: Start: 10-21-2024 End: 97-83-1949Nwszo metabolic panel calcium totalBrett W Might [employer]AY MOTORMAN - [employer]ER Work Phone: Start: 83-70-9989Im abdomen & pelvis w/contrast Haim Vazquez MD Work Phone: Start: 83-11-9697Qx thorax w/contrast Haim Vazquez MD Work Phone: Start: 29-59-9219Kcvel count complete auto&auto difrntl wbcGraeme Vazquez MD Work Phone: Start: 47-00-0420Zfzkkxaspw exam chest 2 Marilynn Santiago MD Work Phone: Start: 65-82-3509Yp abdomen & pelvis w/contrast Haim Vazquez MD Work Phone: Start: 62-84-3006Hq thorax w/contrast Haim Vazquez MD Work Phone: Start: 98-53-2687Iofnb of troponin quantitativeSean Ray MDStart: 76-34-4575Fk thorax w/contrast materialSean Ray MDStart: 03-22-2024 Radiologic exam chest single viewSean Ray MDStart: 13-07-6624Pfeog metabolic panel calcium totalSean Ray MDStart: 34-86-6465Kji routine ecg w/least 12 lds w/i&rSean Ray MDStart: 78-44-3840Yk abdomen & pelvis w/contrast materialHolly Wero RELAY MOTORMAN.SPUD GRADER Work Phone: Start: 56-83-3386Hk thorax w/contrast materialHolly Wero RELAY MOTORMAN.SPUD GRADER Work Phone: Start: 02-68-2855Zcmxw count complete auto&auto difrntl wbcHolly Wero RELAY MOTORMAN.SPUD GRADER Work Phone: Start: 45-47-9989Qe abdomen & pelvis w/contrast materialGraeme Vazquez MD Work Phone: Start: 15-82-9133Dm thorax w/contrast Haim Vazquez MD Work Phone: Start: 12-03-5519Tw abdomen & pelvis w/contrast materialGraeme Vazquez MD Work Phone: Start: 77-70-6129Jd thorax w/contrast materialGraeme Vazquez MD Work Phone: Start: 05-63-3381Ub thorax w/o contrast materialHolly Wero RELAY MOTORMAN.SPUD GRADER Work Phone: Start: 17-86-2222TGY screeningDR DI OCHOA .Comment on above:Performed By: #### IRON, PSASC, VITAD #### [facility] [address] [place] [address] Dr. Maddox [facility] HospitalStart: 76-71-0496Ufuym dip stick/tablet reagent auto microscopy Bulk Order ProviderStart: 65-08-9765Pykeilsq screenGalen Bhatt MD Work Phone: Start: 73-44-2953Ppicsfk bacterial quanttative colony count urineRobann marie Bhatt MD Work Phone: Start: 64-93-2610Wj abdomen & pelvis w/o contrst 1/> body reRobert Benjamín Bhatt MD Work Phone: Start: 60-66-3040Biixgtinkma removal of ureteric stent Jian RODRIGUEZ Start: 10-82-0833Lxllgc biopsyJian RODRIGUEZ Comment on above:Right ureteroscopy, Right renal Wash for cytology, holmium laser of right renal tumor, Right stent placementStart: 80-00-6016Jwnralexayzs of mitomycin C into bladderPatrick RODRIGUEZ Comment on above:03/05/2019 , 03/30/2019Start: 02-05-2019 Transurethral resection of bladder neoplasmJian RODRIGUEZ Start: 23-03-2621LgupyfxgpfkdahhvipGyrkjct [employer] Comrxfd on above:left sideStart: 86-88-9687Xbgetr of bladderJian Evoleen Comment on above:05/15/2018 * Cysto, bladder bx, fulguration, left ureteral dilation, left ureteroscopy, ureteral biopsy, left pyeloscopy, right ureteroscopy, left stent placement with clot evacuation. 04/05/2016* cystoscopy, bilateral rg, bladder biopsy, fulguration.Start: 96-92-5792ZzkjizcdeyVscezib WATERS Comvybb on above:05/10/2016 * Cysto, rigid ureteral dilation, ureteroscopy, pyeloscopy, basket extraction of renal stone, left stent placementStart: 37-25-1407Obnqcc biopsyJian Evoleen Comcpdu on above:01/10/2012 * Cysto, left stent change, ureteroscopy, renal biopsy x 3Start: 80-86-8153Stjqlhpldeyx of BCG into the RoseKongZhong Comecdp on above:BCG # 6 09/18/10 BCG #3 02/18/2012 BCG #3 12/09/2012 BCG #2 12/16/2017Start: 48-70-9455Fpcrika of stentJian Evoleen Comjpro on above:left side, 08/30/2010, 05/29/2016Start: 68-08-8965Lylyzjcmah and transurethral resection of bladder tumorJian RODRIGUEZ Comjhot on above:08/10/2010 * Cysto, TURBT/TURP/left ureteroscopy, left stent placementStart: 61-80-9374TtrigtfklaXrbfrzq WATERS Comment on above:07/21/2010, 11/20/2010, 02/19/2011, 05/29/2011, 09/11/2011, 11/27/2011, 04/25/2012, 08/04/2012, 10/21/2012, 07/20/2013, 01/18/2014, 11/23/2014, 12/05/2015, 11/27/2016, 06/04/2017, 11/19/2017, 03/11/2018, 09/23/2018, 12/31/2017Decompression of median nerveTappit Dilation of urethraTappit Comqjvf on above:12/09/2012 * cysto/UD with pelaez soundsHernia repairTappit Lumbar spinal fusionTappit Transurethral prostatectomyTappit Comment on above:08/10/2010 * turp 12/27/2011 * cystoscopy, trev rg, ureteroscopy, bladder bx, TURP and left stent placement Plan of Treatment DateCare ActivityDetailAuthorStart: 14-25-8201SBzO,Tdap and Td Vaccines (3 - Td or Tdap)DTaP,Tdap and Td Vaccines (3 - Td or Tdap)[facility] SystemStart: 99-05-3849VWxR/Tdap/Td vaccine (2 - Tdap)DTaP/Tdap/Td vaccine (2 - Tdap)[facility]ITALStart: 92-97-4714Vzsxv microalbumin profileClevan wert county hospital Clinic Start: 62-57-8252Phfrhgzz ScreeningDiabetes ScreeningClevan wert county hospital ClinicStart: 06-01-7600Klbpnwij ScreeningDiabetes ScreeningClevan wert county hospital ClinicStart: 10-16-2027 Diabetes ScreeningDiabetes ScreeningClevan wert county hospital ClinicStart: 39-42-4528Xmfwlvhp ScreeningDiabetes ScreeningClevan wert county hospital ClinicStart: 20-30-5848Ootopffm Screening Diabetes ScreeningClevan wert county hospital ClinicStart: 10-94-6891Xepgdcbb ScreeningDiabetes ScreeningGalion Hospitaltart: 49-05-7038Ywiysyvl ScreeningDiabetes Screening [facility] Hospitaltart: 00-06-2217Xqehujfh ScreeningDiabetes ScreeningGalion Hospitaltart: 50-73-1374Mhmcusva ScreeningDiabetes ScreeningUc [facility] Start: 86-44-0388Itrimhvx ScreeningDiabetes ScreeningGalion Hospitaltart: 40-61-3617Pqtdxprm ScreeningDiabetes ScreeningGalion Hospitaltart: 11-02-2026 Diabetes ScreeningDiabetes ScreeningGalion Hospitaltart: 05-04-3588Wnoygcog ScreeningDiabetes ScreeningGalion Hospitaltart: 17-10-1323Dfanhlff Screening Diabetes ScreeningGalion Hospitaltart: 55-32-1814Ikbsuvto ScreeningDiabetes ScreeningGalion Hospitaltart: 69-04-2294Zpyyhdos ScreeningDiabetes Screening [facility] Hospitaltart: 30-55-4169Tvvaddnz ScreeningDiabetes ScreeningGalion Hospitaltart: 48-18-2422UPOHXUNG SCREENDIABETES SCREENGalion Hospitaltart: 94-78-0323VKTUBWJD SCREENDIABETES SCREENGalion Hospitaltart: 73-23-6907Deghelq ScreeningTobacco ScreeningOhioHealth Nelsonville Health Centerca [facility] SystemStart: 43-97-3254Wheypbv ScreeningTobacco ScreeningUNC Medical Centertart: 91-34-5440XLUESRUY SCREENDIABETES SCREENGalion Hospitaltart: 86-48-4484PRCQDLIW SCREENDIABETES SCREENGalion Hospitaltart: 43-49-4286SEYDASHL SCREENDIABETES SCREENGalion Hospitaltart: 29-94-5220Fbqbdvouol ScreenDepression ScreenBon Secours The Bellevue HospitalStart: 48-25-5544FJORGDYY SCREENDIABETES SCREENGalion Hospitaltart: 53-73-8950AXXZEAWX SCREENDIABETES SCREENGalion Hospitaltart: 11-02-2025 End: 63-78-3990Aniidvu encounter rjhfovlsm81/20/2026 8:40 AM EST Office Visit [facility] [address] [place] [phone] Might, Marilu W, RELAY MOTORMAN - SPUD GRADER [address] [place] [address] AWV and 6 monthPremier Health Primary Care TiffinComment on above:AWV and 6 monthStart: 18-19-9396Cxewyz Wellness Visit (Medicare)Annual Wellness Visit (Medicare)Bon [employer] [facility] SouthStart: 59-82-2106SWAXW-19 Vaccine ()COVID-19 Vaccine ( season)Bon [facility] HospitalBrickfish [facility] SouthComment on above:Postponed from 06/14/2024 (Patient Refused)Start: 85-53-7382Iubnmswev vaccinationBon [facility] HospitalBrickfish [facility] SouthComment on above: Postponed from 05/14/2024 (Patient Refused)Postponed from 05/14/2025 (Patient Refused)Start: 40-84-6558Wjozp panelLipidsBon [facility] HospitalStart: 52-53-0871OIBCSLQY SCREENDIABETES SCREENClevan wert county hospital ClinicStart: 06-14-2025 Influenza vaccinationGalion Hospitaltart: 05-31-2025 End: 59-13-6024Lguhblp encounter wopapfqrc81/18/2025 8:00 AM EDT Office Visit [address] [phone] Harpreet Avalos RELAY MOTORMAN-SPUD GRADER [address] [place] [address] [facility] Hospitaltart: 05-17-2025 End: 84-04-1907Spnvyfv encounter jtycxixve95/04/2025 8:30 AM EDT Office Visit [address] [phone] Harpreet Avalos, RELAY MOTORMAN-SPUD GRADER [address] [facility] [place] [address] [facility] Hospitaltart: 05-08-2025 End: 48-16-9141Nlqhfpu encounter gjfaioxfx77/26/2025 10:30 AM EDT Office Visit [facility] [address] [place] [phone] Chago Hernandez, RELAY MOTORMAN-SPUD GRADER [address] [place] [address] [facility] Start: 04-30-2025 End: 16-70-5750Fjwapz-up zhhawewgw59/18/2025 9:40 AM EDT Visit (SP) Office Hematology/Oncology [address] [place], [place] [phone] Graeme Vazquez MD [address] [place] [address] 6 month follow up after ct and labHematology/OncologyComment on above:6 month follow up after ct and labStart: 04-27-2025 End: 25-93-5657Wvwvajb encounter ksyklzqof72/15/2025 8:40 AM EDT Office Visit [facility] [address] [place] [phone] Marilu Roach, RELAY MOTORMAN - SPUD GRADER [address] [place] [address] 6 monthsFl[facility] TiffinComment on above:6 monthsStart: 04-23-2025 End: 77-28-3234Aceayyg encounter zuyjuozvz43/11/2025 7:45 AM EDT Appointment Radiology Pet CT [address] [place] [address] Ct CAP with contrast and labRadiology Pet CTComment on above:Ct CAP with contrast and lab Start: 04-22-2025 End: 85-73-7612BLC W Auto Differential panel - BloodCOMPLETE BLOOD COUNT AND DIFFERENTIAL Lab Routine Malignant neoplasm of overlapping sites of bladder (HCC) Malignant neoplasm of urinary bladder, unspecified site (HCC) CKD (chronic kidney disease), stage V (HCC) Expected: 04/22/2025 (Approximate), Expires: 10/23/2025leveland ClinicComment on above:Expected: 04/22/2025 (Approximate), Expires: 10/23/2025Start: 04-22-2025 End: 88-42-3702Ajexswxubsqgu metabolic 2000 panel - Serum or PlasmaCOMPREHENSIVE METABOLIC PANEL Lab Routine Malignant neoplasm of overlapping sites of bladder (HCC) Malignant neoplasm of urinary bladder, unspecified site (HCC) CKD (chronic kidney disease), stage V (HCC) Expected: 04/22/2025 (Approximate), Expires: 10/23/2025leveland ClinicComment on above:Expected: 04/22/2025 (Approximate), Expires: 10/23/2025Start: 04-22-2025 End: 42-79-3709JB Abdomen and Pelvis W contrast IVCT ABD/PEL W IVCON Radiology Routine Malignant neoplasm of overlapping sites of bladder (HCC) Malignant neoplasm of urinary bladder, unspecified site (HCC) CKD (chronic kidney disease), stage V (HCC)Malignant neoplasm of ureteric orifice (HCC) Expected: 04/22/2025 (Approximate), Expires: 11/22/2025[facility] Work Phone: Comment on above:Expected: 04/22/2025 (Approximate), Expires: 11/22/2025Start: 04-22-2025 End: 58-65-6109PK Chest W contrast IVCT CHEST W IVCON Radiology Routine Malignant neoplasm of overlapping sites of bladder (HCC) Malignant neoplasm of urinary bladder, unspecified site (HCC) CKD (chronic kidney disease), stage V (HCC) Malignant neoplasm of ureteric orifice (HCC) Expected: 04/22/2025 (Approximate), Expires: 11/22/2025leveland ClinicComment on above:Expected: 04/22/2025 (Approximate), Expires: 11/22/2025Start: 11-78-2598Stzgiteqhj Screen Depression ScreenBon [facility] HospitalStart: 85-56-5504Mjdlzwyraiu Syncytial Virus (RSV) or age 60 yrs+ (1 - 1-dose 75+ series)Respiratory Syncytial Virus (RSV) or age 60 yrs+ (1 - 1-dose 75+ series)Bon [facility] HospitalComment on above:Postponed from 2014 (Patient Refused)Start: 25-40-4616Vubmuhnd vaccine (2 of 2)Shingles vaccine (2 of 2)Bon [facility]uffton HospitalComment on above:Postponed from 10/07/2023 (Patient Refused)Start: 04-22-2025 End: 47-31-3361HZI W/REFLEX FT4TSH W/REFLEX FT4 Lab Routine Disorder of thyroid Expected: 04/22/2025 (Approximate), Expires: 07/22/2025leveland ClinicComment on above:Expected: 04/22/2025 (Approximate), Expires: 07/22/2025Start: 28-01-1093BTMHQCVU SCREENDIABETES SCREENGalion Hospitaltart: 03-05-2025 DIABETES SCREENDIABETES SCREENGalion Hospitaltart: 37-21-1222YHXFDECA SCREEN DIABETES SCREENGalion Hospitaltart: 32-73-7473KHVFTETE SCREENDIABETES SCREEN [facility] ClinicStart: 34-29-7614HFAJSOUL SCREENDIABETES SCREENUc [facility] Hospital Start: 88-61-5857BRNSFNUP SCREENDIABETES SCREENGalion Hospitaltart: 01-15-2025 DIABETES SCREENDIABETES SCREENGalion Hospitaltart: 73-15-8515TCKVRRTL SCREEN DIABETES SCREENGalion Hospitaltart: 10-27-2024 End: 90-78-5096Xjmuozz encounter jnovfmmfj50/14/2025 9:00 AM EST Office Visit [facility] [address] [place] [phone] Marilu Roach, RELAY MOTORMAN - SPUD GRADER [address] [place] [address] 6 mos w/Labs awvMwood county hospital Primary Care TiffinComment on above:6 mos w/Labs awvStart: 10-23-2024 End: 65-88-0839Tntrbe-up wknhzauxk73/10/2025 9:40 AM EST Visit (SP) Office Hematology/Oncology [address] [place] [address] [place], [place] [phone] Graeme Vazquez MD [address] [place] [address] 9 week follow up for ct and lab reviewHematology/Oncology Comment on above:9 week follow up for ct and lab reviewStart: 10-16-2024 End: 77-26-0208FNN W Auto Differential panel - BloodCOMPLETE BLOOD COUNT AND DIFFERENTIAL Lab Routine Malignant neoplasm of overlapping sites of bladder (HCC) Expected: 10/16/2024 (Approximate), Expires: 08/21/2025[facility] Comment on above:Expected: 10/16/2024 (Approximate), Expires: 08/21/2025Start: 10-16-2024 End: 63-37-7324Jxsvcqybbowez metabolic 2000 panel - Serum or PlasmaCOMPREHENSIVE METABOLIC PANEL Lab Routine Malignant neoplasm of overlapping sites of bladder (HCC) Expected: 10/16/2024 (Approximate), Expires: 08/21/2025[facility] Comment on above:Expected: 10/16/2024 (Approximate), Expires: 08/21/2025Start: 10-16-2024 End: 74-18-4044HY Abdomen and Pelvis W contrast IVCT ABD/PEL W IVCON Radiology Routine Malignant neoplasm of overlapping sites of bladder (HCC) Expected: 10/16/2024 (Approximate), Expires: 09/20/2025[facility] Work Phone: Comment on above:Expected: 10/16/2024 (Approximate), Expires: 09/20/2025Start: 10-16-2024 End: 22-48-9891XJ Chest W contrast IVCT CHEST W IVCON Radiology Routine Malignant neoplasm of overlapping sites of bladder (HCC) Expected: 10/16/2024 (Approximate), Expires: 09/20/2025[facility] OhioComment on above:Expected: 10/16/2024 (Approximate), Expires: 09/20/2025Start: 10-16-2024 End: 78-79-4417Xnqaqga encounter dybywqgkr27/03/2025 7:45 AM EST Appointment Radiology Pet CT [address] [place] [address] CAP with contrast and labRadiology Pet CTComment on above:[address] CAP with contrast and labStart: 77-05-3744Ugaaidu Directive DiscussionAdvance Directive DiscussionCleveland ClinicStart: 07-06-2024 End: 03-61-9092Jdmnou-up encounterHematology/OncologyComment on above:follow up and chemotx KeytrudaStart: 07-06-2024 End: 21-48-6668Rjimfkh encounter sykdfqzrb46/23/2024 8:45 AM EDT Office Visit [facility] [address] [place] [address] follow up and chemotx KeytrudaNortTrinity Health Muskegon Hospital LaboratoryComment on above:follow up and chemotx KeytrudaStart: 06-29-2024 End: 30-65-2420CKB W Auto Differential panel - BloodCOMPLETE BLOOD COUNT AND DIFFERENTIAL Lab Routine 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), 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, unspecified site (HCC) Disorder of thyroid Abnormal blood chemistry Expected: 06/29/2024 (Approximate), Expires: 09/28/2024[facility] ClinicComment on above:Expected: 06/29/2024 (Approximate), Expires: 09/28/2024Start: 06-29-2024 End: 24-83-3769Dhgijrqcnkgpi metabolic 2000 panel - Serum or PlasmaCOMPREHENSIVE METABOLIC PANEL Lab Routine 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), 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, unspecified site (HCC) Disorder of thyroid Abnormal blood chemistry Expected: 06/29/2024 (Approximate), Expires: 09/28/2024[facility] ClinicComment on above:Expected: 06/29/2024 (Approximate), Expires: 09/28/2024Start: 06-29-2024 End: 54-48-4544Zugfvajz [Mass/volume] in Serum or PlasmaCORTISOL, SERUM Lab Routine Malignant 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 ki dney disease), 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, unspecified site (HCC) Disorderof thyroid Abnormal blood chemistry Expected: 06/29/2024 (Approximate), Expires: 09/28/2024[facility] ClinicComment on above:Expected: 06/29/2024 (Approximate), Expires: 09/28/2024Start: 06-29-2024 End: 31-41-8069WA Abdomen and Pelvis W contrast IVCT ABD/PEL W IVCON Radiology Routine 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), 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, unspecified site (HCC)Disorder of thyroid Abnormal blood chemistry Expected: 06/29/2024 (Approximate), Expires: 06/17/2025[facility] Work Phone: Comment on above:Expected: 06/29/2024 (Approximate), Expires: 06/17/2025Start: 06-29-2024 End: 83-54-7518EA Chest W contrast IVCT CHEST W IVCON Radiology Routine 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), 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, unspecified site (HCC) Disorder of thyroid Abnormal blood chemistry Expected: 06/29/2024 (Approximate), Expires: 06/17/2025[facility] ClinicComment on above:Expected: 06/29/2024 (Approximate), Expires: 06/17/2025Start: 06-29-2024 End: 01-74-6136Hgsitdixty A1c in BloodHEMOGLOBIN A1C Lab Routine 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), 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, unspecified site (HCC) Disorder of thyroid Abnormal blood chemistry Expected: 06/29/2024 (Approximate), Expires: 09/28/2024leveland ClinicComment on above:Expected: 06/29/2024 (Approximate), Expires: 09/28/2024Start: 06-29-2024 End: 37-04-9545Ppxgqimnnww [Units/volume] in Serum or PlasmaTHYROID STIMULATING HORMONE Lab Routine 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), 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, unspecified site (HCC) Disorder of thyroid Abnormal blood chemistry Expected: 06/29/2024 (Approximate), Expires: 09/28/2024[facility] ClinicComment on above: Expected: 06/29/2024 (Approximate), Expires: 09/28/2024Start: 06-29-2024 End: 40-00-8522Fgfmhca encounter rvxogzlnf37/16/2024 8:45 AM EDT Appointment Radiology Pet CT [address] [place] [address] [place] [address] ct cap Radiology Pet CTComment on above:ct capStart: 50-46-5440CJGUC-19 Vaccine ( season)COVID-19 Vaccine ()[facility] Start: 81-61-6860LNKQK-19 Vaccine ()COVID-19 Vaccine ( season)[facility] SystemStart: 48-29-1844Uklij-19 Vaccine ()Covid-19 Vaccine ()[facility]: 32-10-2803Rehkb-19 Vaccine ()Covid-19 Vaccine ()[facility]: 92-85-5098Xqozhqqwm vaccination[facility] Start: 34-59-0809Ptbmfocba vaccinationMARTINSVILLE MEMORIAL HOSPITALStart: 04-22-2024 End: 76-67-4666Wytbdwj encounter zadrnrzsu66/10/2024 2:00 PM EDT Office Visit [facility] [address] [place] [phone] Marilu Roach, RELAY MOTORMAN - SPUD GRADER [address] [place] [address] establish care- okay per Bladimir [facility] TiffinComment on above:establish care- okay per mariluStart: 04-21-2024 End: 38-60-1495Ybpwkoe encounter fpoqgujjq24/09/2024 12:30 PM EDT Office Visit [facility] Part of [address] [place] [address] Jenni De La Rosa, RELAY MOTORMAN - SPUD GRADER [address] [facility] [address] [place] [address] [facility] Part of [facility] HospitalComment on above:gastritisStart: 03-22-2024 Annual Wellness Visit (Medicare)Annual Wellness Visit (Medicare)EWA MENDEZMARCIN AULTMAN HOSPITALStart: 03-20-2024 End: 02-64-2838Wpgaaq-up encounterHematology/OncologyComment on above:follow up and chemotx KeytrudaStart: 03-20-2024 End: 38-14-6117Jurozbm encounter oorslmigd59/07/2024 8:30 AM EDT Office Visit [facility] [address] [place] [address] [place] [address] Labs This Day Per [facility] Staff MessageNortTrinity Health Muskegon Hospital LaboratoryComment on above:Labs This Day Per [facility] Staff Message Start: 02-05-2024 End: 68-65-5674vuoztblqdx19/24/2024 9:15 AM EDT [facility] Hematology/Oncology [address] [place] [address] chemotx KeytrudaHematology/OncologyComment on above:chemotx KeytrudaStart: 02-05-2024 End: 80-81-8380Mivodq-up kekcpcdqm94/24/2024 9:00 AM EDT Visit (SP) Office Hematology/Oncology [address] [facility] [place], [place] [phone] Graeme Vazquez MD [address] [place] [address] 6 week follow up w/ possible KeytrudaHematology/Oncology Comment on above:6 week follow up w/ possible KeytrudaStart: 12-24-2023 End: 18-33-9096VEH W Auto Differential panel - BloodCBC + DIFF Lab Routine 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), stage V (HCC) Abnormal weight loss Malignant neoplasm of urinary bladder, unspecified site (HCC) Expected: 12/24/2023, Expires: 03/24/2024 [facility] Work Phone: Comment on above:Expected: 12/24/2023, Expires: 03/24/2024Start: 12-24-2023 End: 80-36-9017Csvmfrkswtxlt metabolic 2000 panel - Serum or PlasmaCOMP METABOLIC PANEL Lab Routine 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), stage V (HCC) Abnormal weight loss Malignant neoplasm of urinary bladder, unspecified site (HCC) Expected: 12/24/2023, Expires: 03/24/2024[facility] Work Phone: Comment on above:Expected: 12/24/2023, Expires: 03/24/2024Start: 55-19-1741Hvictag Directive DiscussionAdvance Directive DiscussionCleParkwood Hospitaltart: 84-70-7896Yalczjgjjt Health ScreeningBehavioral Health ScreeningGalion Hospitaltart: 20-14-9548Aztjdohlja Assessment Depression AssessmentGalion Hospitaltart: 04-13-7226Eemhwjwddyehhq of varicella zoster vaccineZoster (Shingles) Vaccine (2 of 2)[employer] SystemStart: 11-34-4805Ednhumuo vaccine (2 of 2)Shingles vaccine (2 of 2)[facility]OSPITALStart: 40-76-4228Uaqmtikb Vaccine (2 of 2)Shingrix Vaccine (2 of 2)[facility]: 08-22-2023 End: 02-87-1936Pq abdomen & pelvis w/contrast materialCT ABD/PEL W IVCON Radiology Routine Malignant neoplasm of overlapping sites of bladder (HCC) Expected: 08/22/2023 (Approximate), Expires: 08/16/2024[facility] Work Phone: Comment on above:Expected: 08/22/2023 (Approximate), Expires: 08/16/2024Start: 08-22-2023 End: 83-35-7973ID CHEST W IVCONCT CHEST W IVCON Radiology Routine Malignant neoplasm of overlapping sites of bladder (HCC) Expected: 08/22/2023 (Approximate), Expires: 08/16/2024[facility] Work Phone: Comment on above:Expected: 08/22/2023 (Approximate), Expires: 08/16/2024Start: 07-19-2023 End: 09-39-5911QFX W Auto Differential panel - BloodCBC + DIFF Lab Routine Malignant neoplasm of overlapping sites of bladder (HCC) Malaise and fatigue Expected: 07/19/2023, Expires: 09/18/2023[facility] Work Phone: Comment on above:Expected: 07/19/2023, Expires: 09/18/2023Start: 07-19-2023 End: 62-76-0472Jrlwjoogfjkca metabolic 2000 panel - Serum or PlasmaCOMP METABOLIC PANEL Lab Routine Malignant neoplasm of overlapping sites of bladder (HCC) Malaise and fatigue Expected: 07/19/2023, Expires: 09/18/2023[facility] Work Phone: Comment on above:Expected: 07/19/2023, Expires: 09/18/2023Start: 07-19-2023 End: 40-28-0118Imrbihagdut [Units/volume] in Serum or PlasmaTSH BLD Lab Routine Malignant neoplasm of overlapping sites of bladder (HCC) Malaise and fatigue Exp ected: 07/19/2023, Expires: 09/18/2023[facility] Work Phone: Comment on above:Expected: 07/19/2023, Expires: 09/18/2023Start: 77-45-1795QOIGF-19 Vaccine ( season)COVID-19 Vaccine ( season)[facility]OSPITALStart: 18-34-5669Htgaq-19 Vaccine ( season)Covid-19 Vaccine ( season)[facility]: 74-98-1620Hglhneezd vaccinationGalion Hospitaltart: 04-25-2023 End: 06-71-0715Vkihqbarh (T4) free [Mass/volume] in Serum or PlasmaThe [facility] Work Phone: Comment on above:Expected: 04/25/2023, Expires: 06/25/2023Start: 04-25-2023 End: 79-97-1000Sxdkfsnbefvcymkp (T3) [Mass/volume] in Serum or PlasmaThe [facility] Of [facility] Work Phone: Comment on above:Expected: 04/25/2023, Expires: 06/25/2023Start: 12-19-2022 End: 74-85-4786Lcqbt function 2000 panel - Serum or PlasmaRENAL FUNCTION PANEL Lab Routine CELSO (acute kidney injury) (HCC) Expected: 12/19/2022, Expires: [facility] Work Phone: Comment on above:Expected: 12/19/2022, Expires: 02/18/2023Start: 20-59-0471HGCPNWB DIRECTIVE DISCUSSIONADVANCE DIRECTIVE DISCUSSIONGalion Hospitaltart: 72-78-8972GWLJUAUTDG ASSESSMENTDEPRESSION ASSESSMENTGalion Hospitaltart: 32-01-2806Cnwzdnpdw vaccinationUc [facility] Hospital Start: 03-13-2022 End: 82-20-9265PKE COMPLETEECG COMPLETE ECG Routine 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, unspecified laterality (HCC) Expected: 03/13/2022, Expires: 03/13/2023[facility] Work Phone: Comment on above:Expected: 03/13/2022, Expires: 03/13/2023Start: 02-19-2022 End: 12-52-3242MFP W Auto Differential panel - BloodCBC + DIFF Lab Routine Malignant neoplasm of ureter, unspecified laterality (HCC) Expected: 02/19/2022, Expires: 04/21/2022[facility] Work Phone: Comment on above:Expected: 02/19/2022, Expires: 04/21/2022tart: 02-19-2022 End: 63-77-9050Ksrurtubjhkzi metabolic 2000 panel - Serum or PlasmaCOMP METABOLIC PANEL Lab Routine Malignant neoplasm of ureter, unspecified laterality (HCC) Expected: 02/19/2022, Expires: 04/21/2022[facility] Work Phone: Comment on above:Expected: 02/19/2022, Expires: 2Start: 01-22-2022 End: 25-07-0717OLY W Auto Differential panel - BloodCBC + DIFF Lab Routine Malignant neoplasm of ureter, unspecified laterality (HCC) Expected: 01/22/2022, Expires: 03/24/2022[facility] Work Phone: Comment on above:Expected: 01/22/2022, Expires: 03/24/2022tart: 01-22-2022 End: 48-82-2874Cworzpugdpkrp metabolic 2000 panel - Serum or PlasmaCOMP METABOLIC PANEL Lab Routine Malignant neoplasm of ureter, unspecified laterality (HCC) Expected: 01/22/2022, Expires: 03/24/2022[facility] Work Phone: Comment on above:Expected: 01/22/2022, Expires: 03/24/2022tart: 31-10-7107QSBJW-19 VACCINE (4 - Booster for Pfizer series) COVID-19 VACCINE (4 - Booster for Pfizer series)[facility]: 80-35-2244KIJNZ-19 VACCINE (4 - Booster for Pfizer series)COVID-19 VACCINE (4 - Booster for Pfizer series)[facility]: 79-40-3130IFSNN-19 VACCINE (6 - Pfizer series)COVID-19 VACCINE (6 - Pfizer series)[facility]: 44-26-3847RTIKYEV DIRECTIVE DISCUSSIONADVANCE DIRECTIVE DISCUSSIONGalion Hospitaltart: 07-66-6870NMKGFKGERR ASSESSMENTDEPRESSION ASSESSMENTCleParkwood Hospitaltart: 97-66-6578Pqruimpuo vaccinationINFLUENZA (#1)[facility]: 04-94-3756CPIMRSUHENVP: 65+ (3 - PPSV23 or PCV20)PNEUMOCOCCAL: 65+ (3 - PPSV23 or PCV20)[facility]: 24-84-7408Vjzau panelLipidsBON [facility] Centerart: 47-60-8056NFE Vaccine (1 - 1-dose 75+ series)RSV Vaccine (1 - 1- dose 75+ series)[facility]: 83-16-4668Oqdfy microalbumin profile DTAP,TDAP,TD (1 - Tdap)[facility]: 07-01-2005Medicare Annual Wellness VisitMedicare Annual Wellness VisitGalion Hospitaltart: 22-19-3336Zhpp Risk ScreeningFall Risk ScreeningProMetroHealth Cleveland Heights Medical Centertart: 81-13-1332Qlzcpdsmj B Vaccine (1 of 3 - Risk 3-dose series)Hepatitis B Vaccine (1 of 3 - Risk 3-dose series)[facility]: 68-97-5907Fwvsmtqgsjh Syncytial Virus (RSV) or age 60 yrs+ (1 - 1-dose 60+ series)Respiratory Syncytial Virus (RSV) or age 60 yrs+ (1 - 1-dose 60+ series)[facility]: 58-33-5280ICV Vaccine (1 - 1-dose 60+ series)RSV Vaccine (1 - 1-dose 60+ series) [facility]: 41-73-9240AUMOUGGD VACCINE (1 of 2)SHINGRIX VACCINE (1 of 2)[facility]: 20-74-2837Nuxksximr A Vaccine (1 of 2 - Risk 2-dose series)Hepatitis A Vaccine (1 of 2 - Risk 2-dose series)[facility]: 61-39-8546SLYWMACQ VACCINE (1 of 2)SHINGRIX VACCINE (1 of 2)[facility] Start: 72-01-5278Flmcpya ScreeningAnxiety ScreeningGalion Hospitaltart: 90-36-6356Oxhbpgbptn ScreeningDepression ScreeningGalion Hospitaltart: 59-99-7978MAU Vaccine (1 of 2 - Risk 2-dose series)MMR Vaccine (1 of 2 - Risk 2- dose series)[facility]: 69-01-1123Hsxagjohkt ScreenDepression Screen BON [facility] Centerart: 55-05-6471Lkoevdenyr ScreeningDepression ScreeningUNC Medical Centertart: 10-36-3532Uiryrueuekzgh B Vaccine: Consider Based On Risk (1 of 4 - Increased Risk)Meningococcal B Vaccine: Consider Based On Risk (1 of 4 - Increased Risk)[facility] End: 29-28-2562Mu abdomen & pelvis w/contrast materialCT ABD/PEL W IVCON Radiology Routine Malignant neoplasm of overlapping sites of bladder (HCC) 1 Occurrences starting 05/16/[address] [place] [address] Work Phone: Comment on above:1 Occurrences starting 05/16/2023 until 06/14/2024 End: 11-48-1733HU Abdomen and Pelvis W contrast IVCT ABD/PEL W IVCON Radiology Routine Malignant neoplasm of urinary bladder, unspecified site (HCC) 1 Occurrences starting 12/20/[address] [place] [address] Work Phone: Comment on above:1 Occurrences starting 12/20/2023 until 01/18/2025 End: 99-07-7792LW Chest W contrast IVCT CHEST W IVCON Radiology Routine Malignant neoplasm of urinary bladder, unspecified site (HCC) 1 Occurrences starting 12/20/[address] [place] [address] Work Phone: Comment on above:1 Occurrences starting 12/20/2023 until 01/18/2025 End: 08-54-3991PX CHEST W IVCONCT CHEST W IVCON Radiology Routine Malignant neoplasm of overlapping sites of bladder (HCC) 1 Occurrences starting 05/16/[address] [place] [address] Work Phone: Comment on above:1 Occurrences starting 05/16/2023 until 06/14/2024 End: 43-65-6067Dnqwqdy, Wound (with Gram Stain)[facility] [employer] Sales & ConceptsComment on above:1 Occurrences starting 01/04/2025 until 01/04/2025ECG COMPLETEECG COMPLETE ECG Routine Pre-op evaluation 09/12/2022 11:[address] [facility] Work Phone: ekg 12 LeadEKG 12 Lead ECG STAT 03/22/2024 5:52 PM EDT [facility] [employer] UK HEALTHCAREREFERRAL FOR ADDITIONAL BIOMARKER AND MOLECULAR TESTING REFERRAL FOR ADDITIONAL BIOMARKER AND MOLECULAR TESTING Lab Routine Malignant neoplasm of ureter, unspecified laterality (HCC) 12/03/2022 9:[address] [facility] Work Phone: [facility] Immunizations Immunization DateImmunizationNotesCare CzfjbauwGgojstln98-67-5620ehjtii vaccine recombinantChair Winsome Work Phone: [facility] HospitalVssgez90-05-6477jibdmd vaccine, unspecified formulationKatherine Ball RELAY MOTORMAN-SPUD GRADER Work Phone: [facility] ColumbusXozdti19-18-9160ojfziflwue, tetanus toxoids and pertussis vaccineChair [place] Work Phone: [facility] HospitalFkgqip95-21-9789QFFV-NwK-4 (COVID-19) mRNA BNT-162b2 [facility]02-13-2021SARS-CoV-2 (COVID-19) mRNA BNT-162b2 [facility]01-23-2021SARS-CoV-2 (COVID-19) mRNA BNT-162b2 [facility] [place] 251340-27-2015influenza nasal, unspecified formulationChair TXCOM Work Phone: [facility] HospitalKxnyso83-49-7579jjukvuvfa virus vaccine, unspecified formulationPaKongZhong [facility] 251340-27-2015influenza, intradermal, quadrivalent, preservative free, injectableSiwally Perea MD Work Phone: [facility] HospitalOpsneo56-80-3326xxtfquwtlotz conjugate vaccine, 13 valCamryn Perea MD Work Phone: [facility] HospitalUjdgkw21-17-7109vmvwdtwrvuyl polysaccharide vaccine, 23 valCamryn Perea MD Work Phone: [facility] HospitalFxsczd01-61-7616ivowhzs and diphtheria toxoids, adsorbed, preservative free, for adult use (2 Lf of tetanus toxoid and 2 Lf of diphtheria toxoid)Jian JENNIFER [facility]04-04-2013tetanus and diphtheria toxoids, adsorbed, preservative free, for adult use (5 Lf of tetanus toxoid and 2 Lf of diphtheria toxoid)Soren Perea MD Work Phone: [facility] HospitalPuvbem08-37-3099qibermk and diphtheria toxoids, not adsorbed, for adult useLeni Santiago MD Work Phone: bNorton Community HospitalNEGATED: Highlighted row has not occurred!48-64-1372ycvjqbegh, injectable, quadrivalent, preservative free Harpreet Avalos APRN-SPUD GRADER Work Phone: [facility] SystemComment on above:Deferred: Patient Refused Payers DatePayer CategoryPayerPolicy [id number] Health Insurance [id number] [id number] 2018 Private Health [id number] 40-15-4585Tmyirne Care Other (unspecified)[facility] [id number] 2005MedicareMEDICARE MEDICARE A AND B [id number] 2005-[facility] [phone] [place] [address] [id number] [id number] 1960Medicare [id number] [id number] [id number] 1960Unknown [id number] 2.0.1.604017.3.579.2. [id number] 2.0.1.777730.3.57[id number] 2..1.076839.3.57[id number] 2.840.1.104139.3.57[id number] 2.0.1.384310.3.57[id number] 2.16840.1.593604.3.579.[id number] 2.840.1.731641.3.57[id number] 2.16.840.1.422654.3.579.[id number] 2.16.840.1.227995.3.57[id number] 2.16.840.1.982704.3.57[id number] 2.16.840.1.072303.3.579.[id number] 2.16.840.1.784363.3.579.[id number] 2.16.840.1.548877.3.579.[id number] 2.16.840.1.079846.3.579.[id number] 2.16.840.1.958716.3.579.[id number] 2.16.840.1.931296.3.57[id number] 2.16.840.1.650759.3.5[id number] 2.16840.1.278168.19 Social History DateTypeDetailFacilityStart: 07-14-2018 End: 07-94-3160Pgbzuhp smoking status NHISEx-smokerUc West Chester HospitalComment on above:patient quit smoking over 30 years agoStart: 10-14-1940 End: 16-96-7856Ifxevgi of tobacco useCurrent smokerGalion Hospitaltart: 10[birth year]14-1941 End: 97-32-6931Ywxwlgl of tobacco useCigarette SmokerGalion Hospitaltart: 07-14-2018 End: 96-91-8921Kcsyudlzvx smoked current (pack per day) - Vmpsbnvo8Xxeycgvud ClinicStart: 07-14-2018 End: 79-55-5750Oxoigdx use and exposureSmokeless tobacco non-userGalion Hospitaltart: 01-08-2022 End: 99-30-3300Xpiocpm intakeCurrent non-drinker of alcohol (finding)[facility]: 68-01-1613Fzg Assigned At [facility] Hospitaltart: 12-29-2021 End: 73-72-4644Coicralc to SARS-CoV-2 (event)Not sureGalion Hospitaltart: 11-24-2020 End: 05-21-7643Nrx Assigned At [facility] HealthcareHistory of tobacco usePassive smokerOur Lady of Mercy Hospital [facility] smoking statusNeverExecutive Urology of [facility] West SanduskyComment on above:patient quit smoking over 30 years agoStart: 33-57-0149Bmeafk identityIdentifies as male gender (finding)[facility]: 06-93-6696Oakfze orientationHeterosexual (finding)[facility]: 03-22-2024 End: 18-31-1841Zxqqvtw intakeLifetime non-drinker (finding)[employer] 7 TechnologiesHow often to you have a drink containing alcohol?NeverCORRIGAN MENTAL HEALTH CENTERYouFolio TRIHEALTHPostling UK HEALTHCAREStart: 67-69-0116Usm Assigned At [facility] HospitalNot on fileBON [employer] [facility] Has the electric, gas, oil, or water company threatened to shut off services in your home in past 12MoNoBon [employer](I/We) worried whether (my/our) food would run out before (I/we) got money to buy more.Never trueBon [employer] [place] [facility] SouthStart: 05-19-2015 End: 88-16-6520HhwSyls (finding)[employer] Procedure CodeEquipment CodeEquipment Original TextEquipment IdentifierDates [place] Ureteral Stent Kit 7f X [id number]: 14-65-7512Rnnum [place] 7fr Taper [place] Green Polymer Phreecoat 24cm Ureteral - [id number]: 79-20-7287Gsxeg [place] 7fr Taper [place] Green Polymer Phreecoat 26cm Ureteral - [id number]: 46-74-5786Eypwz Nicore [place] 7fr Taper [place] Green Nitinol Polymer 24cm - [id number] Start: 65-39-3115Pqrdi [place] 6fr Taper [place] Green Polymer Phreecoat 24cm Ureteral - [id number]: 83-76-0237Xazyobr pacemaker, device (physical object) ([id number])Pacemaker Ldls Dr Pm 19.5f 32.2 Mm Ra Crd Strl - [id number] - [id number]()[id number], [id number] FDA Start: 23-25-5708Zudgfno pacemaker, device (physical object) ([id number])Pacemaker Ldls Dr Levy 19.5f 38.0 Mm Rv Crd Strl - [id number] - [id number] ()[id number], [id number] FDAStart: 04-21-2025 Goals DatePatient GoalDesired Activity/StatePersonal health goalComment on above: Evaluation of progress towards goal: patient progressing toward safe discharge home. Functional Status MheoRujxnjesnnVnhvmeSnngmunn03-73-9323Rocksggvff StatusN/AExecutive [facility]02-05-2023Are you deaf, or do you have serious difficulty hearingNo 11/18/2022 10:06 AM Pta Cary RN [facility]02-05-2023Are you blind, or do you have serious difficulty seeing, even when wearing glassesNo 11/18/2022 10:06 AM Pat Cary RN [facility]02-05-2023Do you have serious difficulty walking or climbing stairsNo 11/18/2022 10:06 AM Pat Cary RN [facility]CKing[facility] 44-16-1946Qs you have difficulty dressing or bathingNo 11/18/2022 10:06 AM Pat Cary RN [facility] CenterWskyun75-79-4925Eqholiq of a physical, mental, or emotional condition, do you have difficulty doing errands alone such as visiting a physician's office or shoppingNo 11/18/2022 10:06 AM Pat Cary RN [facility] Mental Status NoyyFaniwpgmrhXxpkbxWazhbqgj33-96-3346Qyjqhox of a physical, mental, or emotional condition, do you have serious difficulty concentrating, remembering, or making decisionsNo 11/18/2022 10:06 AM Pat Cary RN [facility] Clinical Notes 07-08-2020 to 07-19-2025 Note Date & LbgiWcsjFnrdwdvo97-87-2481 NoteUT Cardiology - [facility] Iain Austin is a 85 y.o. year old male patient being seen for a 6 follow up appointment with ECHO. Per patient he is doing well, patient states he is outside decorating for TRIRIGAeen doing is flower bed and mowing without [...] moderate, relieved by rest. He was evaluated [facility] ED and his CBC, BMP, BNP, [...] of breath on ac (more content not included)...[place]08-04-2025 History of Present illness Narrative* Harpreet Avalos, RELAY MOTORMAN-SPUD GRADER - 05/17/2025 8:30 AM EDT Images from the original note were not included. Wound Care Progress Note Patient: Juan Jose Austin Date of : 1940 Chief Complaint: Follow-up left chest wound Subjective/HPI: Juan Jose is a 85 y.o. male who presents to [facility] for evaluation of 1 [...] variants x2, and MSSA and variant, and ENGRAVER [employer]AMES. CULTURE RESULTS Staphylococcus aureus Abnormal Staphylococcus aureus [...] 04/21/2025 Performed by Bryan Mccoy MD at [facility] (EP) HERNIA REPAIR NEPHRECTOMY Left jul 03, [...] diaphoretic. HENT: Head: Normocephalic and atraumatic. Comments: [place] Eyes: General: No scleral icterus. Extraocular Movements: [...] 08 Site Assessment Red 05/17/25847 Julia-wound Assessment Intact;Juana Diaz;Blanchable erythema 05/17/25 0848 Wound Length (cm) 0.3 [...] left chest. Short term goal: medical compliance rodent exterminator goal: wound closure(maintained closure) Patient verbalizes understanding [...] health record LIZ Horvath 05/17/25 8:55 AM [facility] [place] [facility] [phone] LIZ Horvath 05/17/25 1249 documented in this encounterOhioHealth Nelsonville Health CenterFinancial Fairy Tales Corewell Health Butterworth HospitalSkgdpk37-31-3283 Instructions* Patient Instructions* Skylar Davidson RN - [...] Description moderate Serosanginous serosanguinous documented in this encounterSelect Medical [facility]ty [facility]08-01-2025 NoteInfectious Disease. Telemedicine Note Consent Statement: I [...] that there are some limitations compared to rphj-cl-xcsk evaluations. We elected to proceed. Division of Infectious Diseases - Progress Note Our team prefers to use [employer] for communication during business hours (8 AM - 5 PM). We make every effort to keep the Treatment Team in [employer] updated. If I do not respond within 30 minutes, please call the answering service. From 5 PM - 8 AM, please call our answering service at [phone] to speak to the on-call physician. Patient name: Juan Jose B Austin Patient Today's Date and Time: 05/12/2025, 5:11 PM PCP: Dr. Mayen Might Discharged from [facility] on 04/23/25 Location of provider: [facility] Current location of patient: [place] Impression /Recommendations: PPM pocket infection MSSA Initially presented to [facility] given concern for pacer pocket infection [...] erythema, swelling and tenderness. He presented to [facility] originally for pacer pocket infection. He thinks the infection began in late December 2024. He was assessed by her embedded linux engineer who thought the pacer wires were starting to erode. It was recommended to have a leadless PPM implanted but could only be done at [facility] or [facility]. He was then transferred. Started of [...] progress note was completed using a voice private chef system. Every effort was made to ensure accuracy; however, inadvertent computerized private chef errors may be present. Thank you for allowing us to participate in the care of this patient. Please do not hesitate to reach out to me via EpicChat or pager with any questions or concerns. Adelina Johnson APRN, CNP Please contact via [facility]07-26-2025 History of Present illness Narrative* Chago [...] visit. Chief Complaint Patient presents with Follow-up [id number] w/pt status post dual-chamber leadless pacemaker Chest infection due to the pacemaker Atrial Fibrillation Shortness of Breath History of Present Illness Juan Jose Austin is a 85-year-old with history of CKD, renal cancer with nephrectomy, ulcerative colitis,remote history of paroxysmal atrial flutter nonobstructive coronary artery disease, syncope/complete heart block with [employer] dual-chamber pacemaker implanted 2022, lead revision January 2024. He follows with [facility] Cardiology. Patient presented to hospital for [...] 04/21/2025 Performed by Bryan Mccoy MD at [facility] (EP) HERNIA REPAIR NEPHRECTOMY Left jul 03, 2018 History reviewed. No pertinent family history. Social History Socioeconomic History Marital status: Spouse name: Not on file Number of children: Not on file Years of education: Not on file Highest education level: Not on file Occupational History Occupation: retired Employer: [employer] Tobacco Use Smoking status: Former Types: Cigarettes Smokeless tobacco: Never Vaping Use Vaping status: Never Used Substance and Sexual Activity Alcohol use: No Drug use: No Sexual activity: Never Other Topics Concern Caffeine Use Yes Social History Narrative Not on file Social Drivers of Health Financial Resource Strain: Patient Declined (04/22/2024) Received from [facility] Overall Financial Resource Strain (CARDIA) Difficulty of Paying Living Expenses: Patient declined Food Insecurity: No Food Insecurity (05/03/2025) Hunger Screening Food Insecurity - Worry: Never True Food Insecurity - Inability: Never True Transportation Needs: No Transportation Needs (04/27/2025) Received from [facility] PRAPARE - Transportation Lack of Transportation (Medical): No Lack of Transportation (Non-Medical): No Physical Activity: Insufficiently Active (10/27/2024) Received from [facility] Exercise Vital Sign Days of Exercise per Week: 5 days Minutes of Exercise per Session: 10 min Stress: Not on file Social Connections: Not on file Interpersonal Safety: Not At Risk (04/20/2025) Humiliation, Afraid, Rape, and Kick questionnaire Fear of Current or Ex-Partner: No Emotionally Abused: No Physically Abused: No Sexually Abused: No Housing Instability: Low Risk (04/27/2025) Received from [facility] Housing Stability Vital Sign Unable to [...] of paroxysmal atrial flutter Syncope/complete heart block [employer] dual-chamber pacemaker implanted 2022, lead revision January 2024 Incision is healing well. Continues to follow with wound care for dressing/iodoform. Denies groin pain, swelling, bruising. Follow-up with [facility] Cardiology as scheduled. Patient was seen when Dr. Verma was present and immediately available in office suite. TODAYS ORDERS No orders of the defined types were placed in this encounter. FOLLOW UP Return if symptoms worsen or fail to improve. PCP: LIZ LAKHANI Referring Physician: LIZ Lakhani [address] [place] [address] LIZ Combs 05/08/25 1052 documented in this [facility]07-23-2025 Miscellaneous Notes* Telephone Encounter - Gill Chiu CMA - 05/05/2025 2:14 PM EDT Called patient to remind them to bring their most current copy of their medication list with them to their appt. Patient verbalizes understanding. documented in this [facility]07-23-2025 Telephone encounter Note* Telephone Encounter - Gill Chiu CMA - 05/05/2025 2:14 PM EDT Called patient to remind them to bring their most current copy of their medication list with them to their appt. Patient verbalizes understanding. [facility]07-23-2025 Miscellaneous Notes* Telephone Encounter - Jazmine Yu RN - 05/05/2025 9:50 AM EDT Patient's daughter called in stating the wound care nurse needs an order for the patient's sutures to be removed from his device extraction site. Spoke with ORK over the phone, stated sutures should be removed after 14 days. Left message for the [facility] wound clinic to determine if a verbal [...] on 05/08/25 with BMD [facility] Telephone encounter Note* Telephone Encounter - Jazmine Yu RN - 05/05/2025 9:50 AM EDT Patient's daughter called in stating the wound care nurse needs an order for the patient's sutures to be removed from his device extraction site. Spoke with ORK over the phone, stated sutures should be removed after 14 days. Left message for the [facility] wound clinic to determine if a verbal or written order is needed. [facility]07-23-2025 Telephone encounter Note* Telephone Encounter - Chelle [...] call daughter again to attempt to schedule. [facility]07-23-2025 Telephone encounter Note* Telephone Encounter - Jazmine Yu RN - 05/05/2025 9:50 AM EDT Wound check appointment scheduled on 05/08/25 with [facility]07-22-2025 History of Present illness Narrative* Harpreet Avalos APRN-ABIOLA - 05/04/2025 7:08 PM EDT 05/04/25 Contacted patient's daughter Dennis. She reports she was not contacted by Infectious Disease. Discussed that recommendation is for Infectious Disease follow-up to ensure current antibiotic and lengthof treatment is appropriate for finalized surgical wound cultures. Dennis voiced understanding and reports she will call for follow-up appointment. Phone number [phone] provided. Dennis asked lyric writer why sutures were not removed at yesterday's wound care visit. Fixing Carpenter shared with Dennis that patient and his [...] Dr. Mccoy's office provided to patient's daughter ([phone]). She voices understanding to contactoffice to schedule follow-up. We discussed that it is my expectation that sutures would be removed at that time. Wound care is ongoing. Patient has follow-up in place for wound care as well. - LIZ Horvath 05/04/25 7:23 PM LIZ Horvath 05/04/251922 documented in this [facility] History of Present illness Narrative* LIZ Horvath - 05/03/2025 3:00 PM EDT Images from the original note were not included. Wound Care Progress Note Patient: Juan Jose Austin Date of : 1940 Chief Complaint: New patient evaluation for left chest wound Subjective/HPI: Juan Jose is a 85 y.o. male who presents to [facility] for evaluation of 1 [...] variants x2, and MSSA and variant, and ENGRAVER [employer] FRAMES. Patient denies being directed to follow-up with [...] be negative for vegetations. Will communicate with [facility] ID to ensure no additional antibiotics [...] 04/21/2025 Performed by Bryan Mccoy MD at [facility] ([facility]) HERNIA REPAIR NEPHRECTOMY Left jul 03, [...] diaphoretic. HENT: Head: Normocephalic and atraumatic. Comments: [place] Eyes: General: No scleral icterus. Extraocular Movements: [...] Site Assessment Red;Bleeding 05/03/25 1518 Julia-wound Assessment Intact;Juana Diaz 05/03/25 151 Wound Length (cm) 0.2 cm [...] daily Continue Keflex as prescribed until gone Fixing Carpenter will communicate with Infectious Disease to ensure no further antibiotics needed in the setting of cultures finalizing positive with MSSA and variants x2, and MSSA & variant, ENGRAVER OPTICAL FRAMES and determine in outpatient follow-up needed. Patient also directed to contact Infectious Disease to schedulefollow-up if needed. Follow-up with Surgeon as scheduled. Patient and Other: Grandson instructed in wound care to left chest. Short term goal: medical compliance jail goal: wound closure(maintained closure) Patient verbalizes understanding [...] procedures Referring and communicating with other health resident care manager rn (not separately reported) Documenting clinical information in the electronic or other health record LIZ Horvath 05/03/25 3:29 PM [facility] [phone] LIZ Horvath 05/03/25 7589 documented in this encounterOhioHealth Nelsonville Health CenterFinancial [place] [facility] [id number] Instructions* Patient Instructions* Skylar Davidson RN - [...] Description moderate Serosanginous serosanguinous documented in this encounterSelect [facility]-2025 Telephone encounter Note* Telephone Encounter - Shannan Castelan RN - 04/22/2025 9:05 AM EDT Pt scheduled for CT tomorrow. Currently hospitalized at [facility] in [place]. New defibrillator placed- site became reddened and erode at insertion site. Pt will call back to reschedule CT and f/u appt. Yu Martinez to scan notes in chart Thank You! Shannan Castelan RN [facility]07-10-2025 Miscellaneous Notes* Telephone Encounter - Shannan Castelan RN - 04/22/2025 9:05 AM EDT Pt scheduled for CT tomorrow. Currently hospitalized at [facility] in [place]. New defibrillator placed- site became reddened and erode at insertion site. Pt will call back to reschedule CT and f/u appt. Yu Martinez to scan notes in chart Thank You! Shannan Castelan RN documented in this [facility]-2025 NoteUT Electrophysiology Consult Note Reason for [...] moderate, relieved by rest. He was evaluated [facility] ED and his CBC, BMP, BNP, [...] No palpitations. No syncope. (more content not included)...[place]05-07-2025 Note [facility] Consult [facility] Reason for visit: S/P [...] moderate, relieved by rest. He was evaluated [facility] ED and his CBC, BMP, BNP, [...] extremity edema. He den (more content not included)...[place] 02-17-2025 NotePatient is here today for 3 week found check. Patient denies fever, chills, body aches, pain. Review of Systems Constitutional: Negative.[place]04-22-2025 NoteUT Electrophysiology Consult Note Reason for visit: [...] moderate, relieved by rest. He was evaluated [facility] ED and his CBC, BMP, BNP, [...] he had elevated BNP. 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 Use of blood products discussed with patient who. Additional Equipment RequestsUnNationwide Children's Hospital04-08-2025 Note [facility] Consult Note Reason for visit: S/P [facility] hospital follow up 01/19/25 Juan [...] moderate, relieved by rest. He was evaluated [facility] ED and his CBC, BMP, BNP, [...] artifact is not c (more content not included)...[place]03-28-2025 NoteUT Cardiology - [facility] Iain Austin is a 84 y.o. [...] moderate, relieved by rest. He was evaluated [facility] ED and his CBC, BMP, BNP, [...] to apex favoring remote (more content not included)...[place]01-10-2025 History of Present illness Narrative* Graeme Vazquez MD - 10/23/2024 9:40 AM EST Images from the original note were not included. NAME: DanielJuan Jose CLINIC NO.: [id number] DATE OF SERVICE: October 23, 2024 (Eve) [...] - EGD/Colonoscopy: with Dr. Jacob Bear at [facility] Diverticulitis A. Duodenum, biopsy: - Duodenal [...] to suggest obstruction. 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 The largest lesion is hypervascular and may [...] pacemaker was inserted on on 03/18/2023 at [facility] with Dr. Bautista. His shortness [...] he is a poor candidate for chemotherapy, [place] based or otherwise. Surgery would yield him [...] which included preparing to see the patient, [id number] patient care, completing clinical documentation, obtaining and/or reviewing separately obtained history, performing a medically appropriate examination, counseling and educating the patient/family/caregiver, ordering medications, tests, or procedures, independently interpreting results (not separately reported), communicating results to the patient/family/caregiver, and care coordination (not separately reported). Graeme Vazquez MD, CPE Hematology and Oncology Services Provided at: [place], [place] Scribe Attestation: This note was scribed [...] under my direction. CC: Sergio Sneed MD [address] [place] [phone] documented in this encounterU[facility]01-10-2025 NoteHNO ID: [id number] Author: GRAEME VAZQUEZ MD Service: ? Author Type: Physician Type: Progress Notes Filed: 10/23/2024 13:11 Note Text: NAME: DanielJuan Jose [facility] NO.: [id number] DATE OF SERVICE: October 23, 2024 (Eve) [...] - EGD/Colonoscopy: with Dr. Jacob Bear at [facility] Diverticulitis A. Duodenum, biopsy: - Duodenal [...] to suggest obstruction. 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 Given the imaging appearance and short-term development, these may be infectious/inflammatory in etiology. Therefore, would advise a short-term follow-up chest CT without contrast in 6-8 weeks to (more content not included)...[facility]01-10-2025 Instructions* Patient Instructions* Jessica Cervantes - 10/23/2024 9:[address] CAP scans in 6 months Labs same day RTC 1 week after to review documented in this encounterUc [facility]01-03-2025 History of Present illness Narrative* Margot [...] PATIENT PRESENTS WITH AN IMPLANTABLE OR ATTACHED STAINED GLASS ARTIST: No RADIOLOGY DEPARTMENT: CT; Exam(s) Completed: Chest Abdomen Pelvis PERIPHERAL IV DATA: Site assessment: Clean,Dry and Intact, Site disposition Discontinued SIGNED BY: RT Loida(R) October 16, 2024 7:39 AM documented in this encounterUc [facility]01-03-2025 NoteHNO ID: [id number] Author: MARGOT SMITH RT(Rosa) Service: ? Author [...] PATIENT PRESENTS WITH AN IMPLANTABLE OR ATTACHED STAINED GLASS ARTIST: No RADIOLOGY DEPARTMENT: CT; Exam(s) Completed: Chest Abdomen Pelvis PERIPHERAL IV DATA: Site assessment: Clean,Dry and Intact, Site disposition Discontinued SIGNED BY: RT Loida(R) October 16, 2024 7:39 [facility]01-03-2025 NoteHNO ID: [id number] Author: LINDA LAURENT RN Service: ? Author [...] October 16, 2024 TIME: 7:30 [facility]01-03-2025 Procedure note* Linda Laurent RN [...] DATE: October 16, 2024 TIME: 7:30 AM [facility]01-03-2025 Procedure note* Linda Laurent RN - [...] 2024 TIME: 7:30 AM documented in this encounterUc [facility]12-04-2024 NoteCardiovascular Medicine [facility] SUBJECTIVE Chief Complaint Patient presents with Chest Pain Juan Jose Austin is a 84 y.o. male here for follow-up after his recent ER visit. 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 He stated he felt like something was poking him around his pacemaker but nothing was visible on the outside. He said he had been working on [employer] all day that day. He received a [...] 90 tablet, Rfl: 3 glucosamine/chondroitin weber A/C ([id number]-[id number]-HET C ORAL), Take 1 capsule by mouth [...] Disp: , Rfl: amLODIPin (more content not included)...[place] 09-16-2024 NoteReview of Systems All other systems reviewed and are negative. believes pain was a pulled muscle from putting up [place] lights no more pain [place]11-28-2024 Hospital Discharge instructions* Discharge Instructions* Leni Santiago MD - 09/10/2024 9:40 PM EST X-ray read is negative for any acute findings for movement of the pacer. Please call your embedded linux engineer tomorrow discussed with the it is anything else acutely that you need to do or otherwise he may follow-up with PCP at regular scheduled intervals * Attachments The following attachments cannot be sent through Care Everywhere. * Chest Pain: Musculoskeletal (Divehi) [facility] History of Present illness Narrative* Graeme Vazquez MD - 08/21/2024 9:40 AM EST Images from the original note were not included. NAME: Juan Jose Austin CLINIC NO.: [id number] DATE OF SERVICE: August 21, 2024 (Eve) [...] - EGD/Colonoscopy: with Dr. Jacob Bear at [facility] Diverticulitis A. Duodenum, biopsy: - Duodenal [...] to suggest obstruction. 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 The largest lesion is hypervascular and may [...] pacemaker was inserted on on 03/18/2023 at [facility] with Dr. Bautista. His shortness [...] he is a poor candidate for chemotherapy, [place] based or otherwise. Surgery would yield him [...] which included preparing to see the patient, [id number] patient care, completing clinical documentation, obtaining and/or reviewing separately obtained history, performing a medically appropriate examination, counseling and educating the patient/family/caregiver, ordering medications, tests, or procedures, independently interpreting results (not separately reported), communicating results to the patient/family/caregiver, and care coordination (not separately reported). Graeme Vazquez MD, CPE Hematology and Oncology Services Provided at: [facility], [place], [place] Scribe Attestation: This note was scribed [...] under my direction. CC: Sergio Sneed MD [facility] [phone] documented in this encounterUc [facility]11-08-2024 NoteHNO ID: [id number] Author: GRAEME VAZQUEZ MD Service: ? Author Type: Physician Type: Progress Notes Filed: 08/21/2024 11:17 Note Text: NAME: DanielJuan Jose [facility] NO.: [id number] DATE OF SERVICE: August 21, 2024 (Eve) Some elements in this clinic note that are critical to medical decision making have been carefully reviewed and included from a prior clinic note dated: May 18, 2024 (Eve) Referring Provider: Dr. Galen Bhatt Additional Clinicians involved in Juan Jose Austin's care: Dr. Serigo Sneed (PCP), Dr. Galen Bhatt, Dr. Jian [...] - EGD/Colonoscopy: with Dr. Jacob Bear at [facility] Diverticulitis A. Duodenum, biopsy: - Duodenal [...] to suggest obstruction. 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 01/24/2024 [...] of segment 8 of (more content not included)...[facility]11-08-2024 Instructions* Patient Instructions* Jessica Cervantes - 08/21/2024 9:[address] CAP scans in 8 weeks Labs same day RTC in 9 weeks documented in this encounterUc [facility]09-16-2024 History of Present illness Narrative* Linda [...] PATIENT PRESENTS WITH AN IMPLANTABLE OR ATTACHED STAINED GLASS ARTIST: No RADIOLOGY DEPARTMENT: CT; Exam(s) Completed: Chest Abdomen Pelvis PERIPHERAL IV DATA: Site assessment: Clean,Dry and Intact, Site disposition Discontinued SIGNED BY: RT Loida(R) June 29, 2024 8:57 AM documented in this encounterUc [facility] Hospital09-16-2024 NoteHNO ID: [id number] Author: LINDA LAURENT RN Service: ? Author [...] June 29, 2024 TIME: 8:03 [facility]09-16-2024 NoteHNO ID: [id number] Author: MARGOT SMITH RT(R) Service: ? Author [...] PATIENT PRESENTS WITH AN IMPLANTABLE OR ATTACHED STAINED GLASS ARTIST: No RADIOLOGY DEPARTMENT: CT; Exam(s) Completed: Chest Abdomen Pelvis PERIPHERAL IV DATA: Site assessment: Clean,Dry and Intact, Site disposition Discontinued SIGNED BY: RT Loida(R) June 29, 2024 8:57 [facility]08-05-2024 Instructions* Patient Instructions* Graeme Vazquez MD - 05/18/2024 1:20 PM EDT Hold pembrolizumab due to colitis Continue weaning steroids CT CAP scans in 6 weeks with labs RTC in 7 weeks documented in this encounterUc [facility]08-05-2024 History of Present illness Narrative* Graeme Vazquez MD - 05/18/2024 1:00 PM EDT Images from the original note were not included. NAME: Juan Jose Austin CLINIC NO.: [id number] DATE OF SERVICE: May 18, 2024 (Eve) [...] to suggest obstruction. 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 The largest lesion is hypervascular and may [...] pacemaker was inserted on on 03/18/2023 at [facility] with Dr. Bautista. His shortness [...] he is a poor candidate for chemotherapy, [place] based or otherwise. Surgery would yield him [...] which included preparing to see the patient, ogqi-[id number] patient care, completing clinical documentation, obtaining and/or reviewing separately obtained history, performing a medically appropriate examination, counseling and educating the patient/family/caregiver, ordering medications, tests, or procedures, independently interpreting results (not separately reported), communicating results to the patient/family/caregiver, and care coordination (not separately reported). Graeme Vazquez MD, CPE Hematology and Oncology Services Provided at: [place], [place] CC: Sergio Sneed MD [address] [facility] [address] documented in this encounter[facility]08-[facility]-2024 NoteHNO ID: [id number] Author: GRAEME VAZQUEZ MD Service: ? Author Type: Physician Type: Progress Notes Filed: 05/19/2024 11:18 Note Text: NAME: Juan Jose Austin [facility] NO.: [id number] DATE OF SERVICE: May 18, 2024 (Eve) [...] to suggest obstruction. 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 [facility]06-17-2024 Telephone encounter Note* Telephone Encounter - Lauren Mckeon RN - 03/30/2024 8:44 AM EDT Call received from pt's family member stating the prednisone script from 03/20 still has not been signed, and pt continues with uncontrollable diarrhea. Daughter states patient has >7 diarrhea stools a day and has tried imodium with no relief. Pt was admitted to [facility] last week with heart issues and those records are available through care everywhere. Stools for cdiff were negative on Ptrefused colonoscopy while admitted... NICOLETTE: please sign script for prednisone that was pended by Elizabeth back on 03/20. Daughter would like this to go to [facility] in [place]. Lauren Mckeon RN [facility] Work Phone: [phone]) [phone] Miscellaneous Notes* Telephone Encounter - Lauren Mckeon RN - 03/30/2024 8:44 AM EDT Call received from pt's family member stating the prednisone script from 03/20 still has not been signed, and pt continues with uncontrollable diarrhea. Daughter states patient has >7 diarrhea stools a day and has tried imodium with no relief. Pt was admitted to [facility] last week with heart issues and those records are available through care everywhere. Stools for cdiff were negative on Ptrefused colonoscopy while admitted... NICOLETTE: please sign script for prednisone that was pended by Elizabeth back on 03/20. Daughter would like this to go to [facility] in [place]. Lauren Mckeon RN documented in this encounterUc [facility]06-07-2024 Telephone encounter Note * Telephone Encounter - Margot So RN - 03/20/2024 12:14 PM EDT Spoke w/ pt's daughter who reports that the pt has not been taking Prednisone. Dr notified and orders to start Prednisone 10 mg/day. Pt's daughter notified and verbalizes understanding. Will call back if his symptoms persist. Nicolette: Rx pended. Margot So RN [facility] Work Phone: [phone]) [phone] Miscellaneous Notes* Telephone Encounter - Margot So [...] answer and unable to leave a VM. [phone] Edwina Olson documented in this encounterUc [facility] Hospital06-07-2024 Telephone encounter Note * Telephone Encounter [...] could try octreotide if GI clears him. [facility]-07-[facility] Telephone encounter Note* Telephone Encounter - [...] be a delayed effect? Margot So, RN [facility]06-07-[facility]24 Telephone encounter Note* Telephone Encounter - Edwina Olson - 03/20/2024 10:37 AM EDT Patient's daughter, Britt, left message on my voicemail to cancel today's appointment because patient is having issues . Call placed to Britt to reschedule, she did not answer and unable to leave a VM. [phone] Edwina Olson [facility]04-23-2024 Telephone encounter Note* Telephone Encounter - Edwina Olson - 02/04/2024 8:53 AM EDT Patient called back and has been scheduled with NICOLETTE and possible treatment tomorrow, 02/04. Patient is all set, Thanks! Edwina Olson [facility]04-23-2024 Miscellaneous Notes* Telephone Encounter - Edwina [...] his treatment. Skylar John documented in this encounterUc [facility] Hospital04-22-2024 Telephone encounter Note * Telephone Encounter - Edwina Olson - 02/03/2024 3:44 PM EDT Attempted to contact patient again, no answer. Left another detailed message. Edwina Olson [facility]04-19-[facility] Telephone encounter Note* Telephone Encounter - Edwina Olson - 01/31/2024 4:19 PM EDT Call placed to patient, no answer. Left message on voicemail to call back to reschedule. Edwina Olson [facility]04-19-[facility]24 Telephone encounter Note* Telephone Encounter - Margot So RN - 01/31/2024 11:25 AM EDT Clerical: Pt forgot about today's appointment. Offered to have him come in this afternoon instead. Pt would prefer to reschedule to a different day. Margot So RN [facility] Work Phone: 1(693) 884-918704-19-2024 Telephone encounter Note* Telephone Encounter - Skylar John - 01/31/2024 11:18 AM EDT Patient was a no show for his follow up with NICOLETTE & his treatment. Skylar John [facility]04-12-2024 History of Present illness Narrative* Margot [...] PATIENT PRESENTS WITH AN IMPLANTABLE OR ATTACHED STAINED GLASS ARTIST: No RADIOLOGY DEPARTMENT: CT; Exam(s) Completed: Chest Abdomen Pelvis With IV and Oral contrast PERIPHERAL IV DATA: Site assessment: Clean,Dry and Intact, Site disposition Discontinued SIGNED BY: RT Loida(R) January 24, 2024 12:16 PM documented in this encounterUc [facility] Hospital03-08-2024 History of Present illness Narrative* Patricia Conteh, MARSHA.SPUD GRADER - 12/20/2023 1:16 PM EST Images from the original note were not included. NAME: Juan Jose Austin CLINIC NO.: [id number] DATE OF SERVICE: December 20, 2023 (Wero) [...] has dementia. Updated Visit, June 27, 2023: JuanJ ose Austin returns for follow-up and continued treatment [...] pacemaker was inserted on on 03/18/2023 at [facility] with Dr. Bautista. His shortness [...] he is a poor candidate for chemotherapy, [place] based or otherwise. Surgery would yield him [...] Anesthesia Problems No Family History Patricia Conteh APRN.SPUD GRADER Hematology and Oncology Services Provided at: [place], [place] CC: Sergio Sneed MD [address] [facility] [address] I spent a total of 30 minutes on the date of the service which included preparing to see the patient, ibrp-ai-dosr patient care, completing clinical documentation, obtaining and/or reviewing separately obtained history, performing a medically appropriate examination, counseling and educating the pat ient/family/caregiver, ordering medications, tests, or procedures, independently interpreting results (not separately reported), and communicating results to the patient/family/caregiver. documented in this encounterUc [facility] Hospital03-08-2024 Nurse Note* Jami Bates MA - 12/20/2023 1:10 PM EST Patient state that he has been losing weight, he has no desire to eat, nothing tastes good he has to force himself to eat. Jami Hernandez MA documented in this encounterUc [facility] Hospital02-16-2024 History of Present illness Narrative* Graeme Vazquez MD - 11/29/2023 1:15 PM EST Images from the original note were not included. NAME: Juan Jose Austin [facility] NO.: [id number] DATE OF SERVICE: November 29, 2023 (Eve) [...] Patricia or Corazon RTC 6 weeks with co [...] pacemaker was inserted on on 03/18/2023 at [facility] with Dr. Bautista. His shortness [...] he is a poor candidate for chemotherapy, [place] based or otherwise. Surgery would yield him [...] which included preparing to see the patient, erak-pd-dlcy patient care, completing clinical documentation, performing a medically appropriate examination, counseling and educating the patient/family/caregiver, ordering medications, tests, or procedures, independently interpreting results (not separately reported), communicating results to the patient/family/caregiver, and care coordination (not separately reported). Graeme Vazquez MD, CPE Hematology and Oncology Services Provided at: [place], [place] Scribe Attestation: This note was scribed [...] my direction. CC: Sergio Sneed MD [address] [facility] [address] documented in this encounterUc [facility] Hospital02-16-2024 Instructions* Patient Instructions* Jessica Pathak - 11/29/2023 1:14 PM EST Proceed with pembrolizumab cycle 13 today. Hydration today. Follow up in 3 weeks for continued treatment. Labs same day. See Patricia Chandra RTC 6 weeks with co Labs same day documented in this encounterUc [facility] Hospital02-09-2024 Miscellaneous Notes* Telephone Encounter - Edwina Olson - 11/22/2023 1:13 PM EST Patient has been rescheduled to 11/29 and notified. Thanks! Edwina Olson * Telephone Encounter - Margot So RN - 11/22/2023 12:48 PM EST Voicemail message received from pt requesting to reschedule his missed appointment w/ Dr Vazquez. Clerical: Please call pt @ [phone] to schedule. Thanks! Margot So RN * Telephone Encounter - Margot So RN - 11/21/2023 4:06 PM EST Pt still in need of f/u appointment. Call placed to pt. No answer. Message left requesting call back. Call placed to pt's spouse. No answer. Message left requesting call back. Margot So RN documented in this encounterUc [facility] Hospital02-01-2024 Miscellaneous Notes* Telephone Encounter - Elizabeth [...] these appointments. HU Moore documented in this encounterUc [facility] Hospital11-16-2023 History of Present illness Narrative* Graeme Vazquez MD - 08/29/2023 1:30 PM EST Images from the original note were not included. NAME: Juan Jose Austin NO.: [id number] DATE OF SERVICE: August 29, 2023 (Eve) [...] pacemaker was inserted on on 03/18/2023 at [facility] with Dr. Bautista. His shortness [...] he is a poor candidate for chemotherapy, [place] based or otherwise. Surgery would yield him [...] which included preparing to see the patient, wrrw-nz-hpws patient care, completing clinical documentation, performing a medically appropriate examination, counseling and educating the patient/family/caregiver, ordering medications, tests, or p rocedures, independently interpreting results (not separately reported), communicating results to the patient/family/caregiver, and care coordination (not separately reported). Graeme Vazquez MD, CPE Hematology and Oncology Services Provided at: [place], [place] CC: No referring provider defined for this encounter. Sergio Sneed MD [facility] [phone] documented in this encounterUc West [facility] Hospital11-16-2023 Instructions* Patient Instructions* Graeme Vazquez MD [...] can restart his Keytruda. documented in this encounterUc [facility] Hospital11-10-2023 History of Present illness Narrative* Shannan [...] 23, 2023 9:43 AM documented in this encounterUc [facility] Hospital10-26-2023 Miscellaneous Notes* Telephone Encounter - Margot [...] noted. Margot So RN documented in this encounterUc [facility] Hospital10-05-2023 Instructions* Patient Instructions* Graeme Vazquez MD - 07/18/2023 1:39 PM EDT Proceed with cycle 9 pembrolizumab today. In 3 weeks to for cycle 10. Labs prior No clinician RTC in 6 weeks prior to C11 Labs every [address] in 5 weeks documented in this encounterUc [facility] Hospital10-05-2023 History of Present illness Narrative* Graeme [...] pacemaker was inserted on on 03/18/2023 at [facility] with Dr. Bautista. His shortness [...] he is a poor candidate for chemotherapy, [place] based or otherwise. Surgery would yield him [...] which included preparing to see the patient, herw-ga-ebgw patient care, completing clinical documentation, performing a medically appropriate examination, counseling and educating the patient/family/caregiver, ordering medications, tests, or p rocedures, independently interpreting results (not separately reported), communicating results to the patient/family/caregiver, and care coordination (not separately reported). Graeme Vazquez MD, CPE Hematology and Oncology Services Provided at: [place], [place] CC: No referring provider defined for this encounter. Sergio Sneed MD [facility] [phone] documented in this encounterUc [facility] Hospital09-14-2023 History of Present illness Narrative* Patricia Conteh APRN.SPUD GRADER - 06/27/2023 1:20 PM EDT ONCOLOGY FOLLOW [...] pacemaker was inserted on on 03/18/2023 at [facility] with Dr. Bautista. His shortness [...] he is a poor candidate for chemotherapy, [place] based or otherwise. Surgery would yield him [...] APRN.CNP Hematology and Oncology Services Provided at: [place], [place] I spent a total of 30 minutes on the date of the service which included preparing to see the patient, amtc-qg-tbpd patient care, completing clinical documentation, obtaining and/or reviewing separately obtained history, performing a medically appropriate examination, counseling and educating the pat ient/family/caregiver, ordering medications, tests, or procedures, independently interpreting results (not separately reported), and communicating results to the patient/family/caregiver. documented in this encounterUc [facility] Hospital09-05-2023 History of Present illness Narrative* Galen [...] visit. Either the patient or their legal associate sales representative has been informed of the [...] Dr. Sandy Bhatt MD documented in this encounterUc [facility] Hospital08-24-2023 History of Present illness Narrative* Graeme [...] pacemaker was inserted on on 03/18/2023 at [facility] with Dr. Bautista. His shortness [...] he is a poor candidate for chemotherapy, [place] based or otherwise. Surgery would yield him [...] which included preparing to see the patient, ofzr-ap-hesl patient care, completing clinical documentation, performing a medically appropriate examination, counseling and educating the patient/family/caregiver, ordering medications, tests, or p rocedures, and independently interpreting results (not separately reported). Graeme Vazquez MD, CPE Hematology and Oncology Services Provided at: [place], [place] documented in this encounterUc [facility] Hospital08-18-2023 Miscellaneous Notes* Telephone Encounter - Jazmine Lopez - 05/31/2023 12:21 PM EDT Requested Prescriptions Pending Prescriptions Disp Refills tamsulosin (FLOMAX) 0.4 mg 30 capsule 5 Sig: Take 1 capsule by mouth once daily. DAUGHTER STATES PATIENT IS OUT OF PILLS documented in this encounterUc [facility] Hospital08-18-2023 History of Present illness Narrative* Shannan [...] 31, 2023 11:24 AM documented in this encounterUc [facility] Hospital08-03-2023 Instructions* Patient Instructions* Graeme Vazquez MD - 05/16/2023 2:[address] CAP in 1 -2 weeks Reschedule appointment with Dr. Bhatt after CT. Proceed with cycle 6 pembrolizumab today. Follow up in 3 weeks to for cycle 7. Labs prior. Review Scans Hold Lasix for a few days to see if mouth improves. documented in this encounterUc West [facility] Hospital08-03-2023 History of Present illness Narrative* Graeme [...] pacemaker was inserted on on 03/18/2023 at [facility] with Dr. Bautista. His shortness [...] he is a poor candidate for chemotherapy, [place] based or otherwise. Surgery would yield him [...] which included preparing to see the patient, tcnk-uy-yaer patient care, completing clinical documentation, performing a medically appropriate examination, counseling and educating the patient/family/caregiver, ordering medications, tests, or p rocedures, and independently interpreting results (not separately reported). Graeme Vazquez MD, CPE Hematology and Oncology Services Provided at: [place], [place] documented in this encounterUc [facility] Hospital07-25-2023 History of Present illness Narrative* Galen Bhatt MD - 05/07/2023 3:10 PM EDT s documented in this encounterUc [facility] Hospital07-13-2023 History of Present illness Narrative* Patricia [...] pacemaker was inserted on on 03/18/2023 at [facility] with Dr. Bautista. His shortness [...] he is a poor candidate for chemotherapy, [place] based or otherwise. Surgery would yield him [...] to discuss when to restage. Patricia Conteh APRN.[facility] Hematology and Oncology Services Provided at: [facility], [place], [place] I spent a total of 30 minutes on the date of the service which included preparing to see the patient, dgpz-io-qipz patient care, completing clinical documentation, obtaining and/or reviewing separately obtained history, performing a medically appropriate examination, counseling and educating the pat ient/family/caregiver, ordering medications, tests, or procedures, independently interpreting results (not separately reported), and communicating results to the patient/family/caregiver. documented in this encounterUc [facility] Hospital06-22-2023 History of Present illness Narrative* Patricia [...] pacemaker was inserted on on 03/18/2022 at [facility] with Dr. Bautista. His shortness [...] he is a poor candidate for chemotherapy, [place] based or otherwise. Surgery would yield him [...] APRN.CNP Hematology and Oncology Services Provided at: [place] I spent a total of 30 minutes on the date of the service which included preparing to see the patient, cfwo-xa-gbuz patient care, completing clinical documentation, obtaining and/or reviewing separately obtained history, performing a medically appropriate examination, counseling and educating the pat ient/family/caregiver, ordering medications, tests, or procedures, independently interpreting results (not separately reported), and communicating results to the patient/family/caregiver. 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 Thank you documented in this encounterUc [facility] Hospital04-20-2023 History of Present illness Narrative* Padmini Mike RN - 01/31/2023 9:22 AM EDT No labs today per Dr. Vazquez. Padmini Mike RN documented in this encounterUc West Chester Hospital04-20-2023 Instructions* Patient Instructions* Graeme Vazquez MD - 01/31/2023 8:50 AM EDT Resume C2 pembrolizumab today. RTC in 3 weeks Ask Ms. So to call next week to heck symptoms documented in this encounterUc [facility] Hospital04-20-2023 History of Present illness Narrative* Graeme [...] he is a poor candidate for chemotherapy, [place] based or otherwise. Surgery would yield him [...] which included preparing to see the patient, glru-hd-btna patient care, completing clinical documentation, performing a medically appropriate examination, counseling and educating the patient/family/caregiver, ordering medications, tests, or p rocedures, communicating with other HCPs (not separately reported), independently interpreting results (not separately reported), and communicating results to the patient/family/caregiver. Graeme Vazquez MD, CPE Hematology and Oncology Services Provided at: [place], [place] documented in this encounterUc [facility] Hospital04-12-2023 History of Present illness Narrative* Margot Smith, RT(R) - 01/23/2023 3:15 PM EDT Radiology Service Progress Note PATIENT NAME: Juan Jsoe Austin DATE OF SERVICE: January 23, 2023 [...] 23, 2023 3:07 PM documented in this encounterUc [facility] Hospital03-28-2023 Miscellaneous Notes* Telephone Encounter - Margot [...] protocol. Margot So RN documented in this encounterUc West [facility] Hospital03-22-2023 Instructions* Patient Instructions* Graeme Vazquez MD - 01/02/2023 3:18 PM EDT Start Keytruda q 3 weeks Labs same day. RTC 3 weeks with Patricia / Corazon Owens documented in this encounterUc West [facility] Hospital03-22-2023 History of Present illness Narrative* Graeme [...] he is a poor candidate for chemotherapy, [place] based or otherwise. Surgery would yield him [...] which included preparing to see the patient, dshe-gp-koii patient care, completing clinical documentation, obtaining and/or reviewing separately obtained history, counseling and educating the patient/family/caregiver, ordering medications, edin ts, or procedures, independently interpreting results (not separately reported), and communicating results to the patient/family/caregiver. Graeme Vazquez MD, CPE Hematology and Oncology Services Provided at: [place], [place] documented in this encounterUc [facility] Hospital03-22-2023 Nurse Note* Liberty Hayes - 01/02/2023 3:08 PM EDT Pt requested recent blood work faxed to Dr. Sneed. Faxed via [employer]. Liberty Hayes documented in this encounterUc [facility] Hospital03-20-2023 History of Present illness Narrative* Margot [...] N/A Margot So RN documented in this encounterUc West [facility] Hospital03-08-2023 Miscellaneous Notes* Telephone Encounter - Olive Alarcon MD - 12/19/2022 8:54 AM EST Patient cancelled Nephrology appt for 12/20/22. Called patient, plan to get labs in the coming days to ensure continued improvement of Cr. documented in this encounterUc West [facility] Hospital03-06-2023 Miscellaneous Notes* Telephone Encounter - Lauren Mendez - 12/17/2022 11:21 AM EST Called patient and r/s to next week * Telephone Encounter - Lauren cMkeon RN - 12/17/2022 11:15 AM EST Pt's caris testing has not been resulted yet. Please call pt and reschedule to next week per Dr Moncada's request. Thanks Lauren Mckeon RN documented in this encounterUc West [facility] Hospital02-22-2023 Hospital Discharge instructions Patient Education 12/05/2022 [...] cells. Follow these instructions at home: Take gbjx-rgy-fhcuddo and prescription medicines only as told by [...] is important. Where to find more information [place] [employer]: www.cancer.org National Cancer [place] (NCI): www.cancer.gov Contact a health care provider [...] 10/02/2004 Document Revised: 09/12/2018 Document Reviewed: 09/03/2017 [employer] Patient Education 2020 [employer]. Follow Up Care 11/23/2022 15:08:18 With:JENNIFER FOUNTAIN, Jian Lee, URL Address: [facility] [address] , [place] [address]- When: Unknown [facility] 02-13-2023 Instructions* Patient Instructions* Graeme Vazquez MD - 11/26/2022 9:29 AM EST 1. Virtual visit 3 weeks after discussion with Dr. Bhatt and consideration of molecular studies. 2. AP Mol. documented in this encounterUc West [facility] Hospital02-13-2023 History of Present illness Narrative* Graeme [...] CPE Hematology and Oncology Services Provided at: [place], [place] I spent a total of 40 minutes on the date of the service which included preparing to see the patient, yjlt-nc-jrxo patient care, completing clinical documentation, obtaining and/or reviewing separately obtained history, performing a medically appropriate examination, counseling and educating the pat ient/family/caregiver, ordering medications, tests, or procedures, independently interpreting results (not separately reported) and communicating results to the patient/family/caregiver. documented in this encounterUc [facility] Hospital02-13-2023 Nurse Note* Jami Hernandez MA - 11/26/2022 8:47 AM EST Patient [facility] he will havehis ureteral stent removed locally by Dr. Rodriguez. Jami Hernandez MA documented in this encounterUc [facility] Hospital02-07-2023 History of Present illness Narrative* Galen [...] he would probably be best off recieving skilled nursing immunotherapy or other systemic therapy. We could [...] complete. Galen Bhatt MD documented in this encounterUc West [facility] Hospital11-30-2022 History of Present illness Narrative* Nicholas Saenz MD - 09/12/2022 2:45 PM EST COUNT INCLUDES THE [facility] PRE-OP NOTE [...] surgery pending LABS, IMPACT documented in this encounterUc West [facility] Hospital11-30-2022 History and physical note * Fatimah [...] fevers. Neuro: No history of TIA's, stroke, [employer] tumor, impaired sensorium, hemiplegia, paraplegia or quadraplegia. No neurological symptoms or problems. Respiratory: No history of current cough or dyspnea, or pneumonia in the past 6 weeks. No history of respiratory/pulmonary symptoms or problems. Cardiovascular: Negative for Recent CA, Angina, Arrhythmia, CAD, Chest Pain, PVD, Valvular [...] BLOCK ABNORMAL ECG ECHO 02/27/22 scanned into [facility] Assessment/Plan Hypertensive heart disease with heart failure (HCC) -BP elevated in office 171/70, 170/72, patient reports he has not taken any of his medications yet today -denies cardiac symptoms -EF 55% on echo 02/2022 scanned into [facility] -on hydralazine, losartan, isosorbide dinitrate, [...] service. Requested most recent office note from embedded linux engineer, Dr. Mason Castaneda. Planned Anesthetic: General Instructions Given to Patient: Instructions located in the after visit summary. Patient given verbal and written preop instructions and voices comprehension and compliance. SIGNATURE: Fatimah Salcedo PA-C PATIENT NAME: Juan Jose Austin DATE: September 12, 2022 TIME: 11:37 AM [facility] Instructions* Patient Instructions* Fatimah Salcedo PA-C - 09/12/2022 11:21 AM EST PATIENT PREOPERATIVE INSTRUCTIONS Galen Bhatt MD has scheduled you for your procedure at this surgery center: [facility] Scheduling Office: [phone] --[address] [place] [address]. Please read below carefully for your personalized [...] Procedures: - YOU MUST HAVE A RESPONSIBLE CLOD PULLER TAKE YOU HOME. A BUSINESS RISK ANALYST OR OVERLOCKER CANNOT BE MADE A RESPONSIBLE CLOD PULLER. - We recommend that a responsible person [...] call the Saturday before. Your surgeon s plastering supervisor will tell you what time to call the office. - If you have not reached the departmental plastering supervisor by 5 P.M., call [phone] after 5 P.M. the day before your surgery. Please be aware that emergency situations arise, which may delay or change your surgical time. If this happens, we will notify you as soon as possible and regret any inconvenience. If you already have an Advance Directive, please fax a copy to [phone] or email to for it to be [...] day. 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 It required patient- provider interaction for the medical decision making as documented below. Chief complaint: Preop teaching COUNT INCLUDES [facility] PRE-OP NOTE Juan Jose Austin is a 81 year old male. Pre-op Date: March 26, 2022 Date of Procedure: 03/28/22 Does the patient have an active COVID-19 test in [facility]? N/A Procedure/Surgery: LASER CYSTOURETHROSCOPY W/ [...] minutes Jimmy Tejada PA-C documented in this encounter[facility]05[facility] History of Present illness Narrative* Galen Bhatt MD - 03/13/2022 2:10 PM EDT VIRTUAL VISIT PROGRESS NOTE This is a virtual visit using R[employer] video visit. It required patient-provider interaction for [...] 1 tablet by mouth once daily. Fish Oil-[place]-3 Fatty Acids (FISH OIL) 300-1,000 mg cap [...] the date of the service which included [id number] patient care, completing clinical documentation, obtaining and/or [...] complete. 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) [facility] Other 05-23-2022 History of Present illness Narrative* [...] which included preparing to see the patient, [id number] patient care, completing clinical documentation, obtaining and/or reviewing separately obtained history, performing a medically appropriate examination, counseling and educating the pat ient/family/caregiver, ordering medications, tests, or procedures, independently interpreting results (not separately reported) and communicating results to the patient/family/caregiver. documented in this encounterU[facility]05-09-[facility] History of Present illness Narrative* Corazon [...] weeks. Corazon Maxwell PA-C documented in this encounterU[facility]05-02-[facility]22 History of Present illness Narrative* Soren [...] which included preparing to see the patient, [id number] patient care, completing clinical documentation, obtaining and/or reviewing separately obtained history, performing a medically appropriate examination, counseling and educating the pat ient/family/caregiver, ordering medications, tests, or procedures, independently interpreting results (not separately reported) and communicating results to the patient/family/caregiver. documented in this encounterU[facility]04-25-2022 History of Present illness Narrative* Soren [...] which included preparing to see the patient, [id number]-[id number] patient care, completing clinical documentation, obtaining and/or reviewing separately obtained history, performing a medically appropriate examination, counseling and educating the pat ient/family/caregiver, ordering medications, tests, or procedures, independently interpreting results (not separately reported) and communicating results to the patient/family/caregiver. documented in this encounterU[facility]04-11-2022 History of Present illness Narrative* Belia Martínez RN - 01/22/2022 1:27 PM EDT . documented in this encounterU[facility]04-04-2022 History of Present illness Narrative* Irma Ariza RN - 01/15/2022 1:38 PM EDT . documented in this encounterU[facility]04-04-2022 History of Present illness Narrative* Corazon [...] 8. Corazon Maxwell PA-C documented in this encounterU[facility]03-28-2022 History of Present illness Narrative* Soren [...] Blood work today shows platelet count of [id number]. I will hold treatment today and continue with cycle 3 day 1 in a week. The plan is to repeat endoscopy evaluation after 3-6 cycles of chemotherapy based on tolerance. Soren Perea MD I spent a total of 20 minutes on the date of the service which included preparing to see the patient, [id number] patient care, completing clinical documentation, obtaining and/or reviewing separately obtained history, performing a medically appropriate examination, counseling and educating the pat ient/family/caregiver, ordering medications, tests, or procedures, independently interpreting results (not separately reported) and communicating results to the patient/family/caregiver. documented in this encounterU[facility]09-25-2020 History of Present illness Narrative* Wang [...] 2020 TIME: 11:15 AM documented in this encounterThe [facility] [place] [facility] Plan note Future Appointments Appointment Date:12/18/2022 01:00:00 PM Scheduled Provider:Jian RODRIGUEZ MD Location:[facility] Appointment Type:URO Procedure 15 min [facility] Evaluation note* Diagnosis Malignant neoplasm of ureter, unspecified laterality (HCC)- Primary documented in this encounter [facility] [place] [facility]* Diagnosis Malignant neoplasm of ureter, unspecified laterality (HCC)- Primary documented in this encounter [facility] [place] [facility]* Diagnosis Malignant neoplasm of ureter, unspecified laterality (HCC)- Primary documented in this encounter [facility] [place] [facility]* Diagnosis Malignant neoplasm of ureter, unspecified laterality (HCC)- Primary documented in this encounter [facility] [place] [facility]* Diagnosis Malignant neoplasm of ureter, unspecified laterality (HCC)- Primary documented in this encounter [facility] [place] [facility]* Diagnosis Malignant neoplasm of ureter, unspecified laterality (HCC)- Primary documented in this encounter [facility] [place] [facility]* Diagnosis Malignant neoplasm of ureter, unspecified laterality (HCC)- Primary documented in this encounter [facility] [place] [facility]* Diagnosis Malignant neoplasm of ureter, unspecified laterality (HCC)- Primary documented [facility] this encounter [facility] [place] [facility]* Diagnosis Urothelial carcinoma (HCC)- Primary Other malignant neoplasm without specification of site Urothelial carcinoma (HCC) Other malignant neoplasm without specification of site documented in this encounter [facility] [place] [facility]* Diagnosis Urothelial carcinoma (HCC)- Primary Other malignant neoplasm without specification of site Urothelial carcinoma (HCC) Other malignant neoplasm without specification of site documented in this encounter [facility] [place] [facility]* Diagnosis 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, unspecified laterality (HCC)- Primary Acute cystitis without hematuria Acute cystitis documented in this encounter [facility] [place] [facility]* Diagnosis Urothelial carcinoma (HCC)- Primary Other malignant neoplasm without specification of site Urothelial carcinoma (HCC) Other malignant neoplasm without specification of site documented in this encounter [facility] [place] [facility]* Diagnosis Pre-op evaluation- Primary Preoperative examination, unspecified Hypertensive heart disease with heart failure (HCC) 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 Gastro-esophageal reflux disease without esophagitis Esophageal reflux 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 Stage 3 chronic kidney disease, unspecified whether stage 3a or 3b CKD (HCC) 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, 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, except renal pelvis (HCC) Malignant neoplasm of kidney, except pelvis Malignant neoplasm of urinary bladder, unspecified site (HCC) documented in this encounter [facility] [place] [facility]* Diagnosis Urothelial carcinoma (HCC)- Primary Other malignant neoplasm without specification of site Malignant neoplasm of right kidney, except renal pelvis (HCC) Malignant neoplasm of kidney, except pelvis Malignant neoplasm of urinary bladder, unspecified site (HCC) documented in this encounter [facility] [place] [facility]* Diagnosis Screening for genitourinary condition Screening for other and unspecified genitourinary condition Malignant neoplasm of right kidney, except renal pelvis (HCC) Malignant neoplasm of kidney, except pelvis Malignant neoplasm of urinary bladder, unspecified site (HCC) documented in this encounter [facility] note* Diagnosis 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, unspecified laterality (HCC)- Primary documented in this encounter [facility] noteNo [employer] Other Evaluation note* Diagnosis CELSO (acute kidney injury) (HCC)- Primary Acute kidney failure, unspecified documented in this encounter [facility] note* Diagnosis 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 Malignant neoplasm of other specified sites of bladder documented in this encounter [facility] note* Diagnosis Malignant neoplasm of [...] unspecified laterality (HCC) documented in this encounter [facility] note* Diagnosis 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 Malignant neoplasm of other specified sites of bladder Malignant neoplasm of right kidney, except renal pelvis (HCC) Malignant neoplasm of kidney, except pelvis Malignant neoplasm of ureter, unspecified laterality (HCC) documented in this encounter [facility] note* Diagnosis 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 Malignant neoplasm of other specified sites of bladder CKD (chronic kidney disease), stage V (HCC) Chronic kidney disease, Stage V Disorder of thyroid Unspecified disorder of thyroid Malaise and fatigue Other malaise and fatigue documented in this encounter [facility] note* Diagnosis 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 Malignant neoplasm of other specified sites of bladder CKD (chronic kidney disease), stage V (HCC) Chronic kidney disease, Stage V Abnormal weight loss Loss of weight Malignant neoplasm of urinary bladder, unspecified site (HCC) documented in this encounter [facility] note* Diagnosis Abnormal finding of diagnostic imaging- Primary Other nonspecific (abnormal) findings on radiological and other examinations of body structure 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 Malignant neoplasm of other specified sites of bladder Disorder of thyroid Unspecified disorder of thyroid documented in this encounter [facility] note* Diagnosis Elevated troponin- Primary Other abnormal blood chemistry documented in this encounter [facility] note* Diagnosis 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 Malignant neoplasm of other specified sites of bladder CKD (chronic kidney disease), stage V (HCC) Chronic kidney disease, Stage V Malignant neoplasm of urinary bladder, unspecified site (HCC) Disorder of thyroid Unspecified disorder of thyroid Abnormal blood chemistry Other abnormal blood chemistry documented in this encounter [facility] note* Diagnosis Pre-op evaluation- Primary Preoperative examination, unspecified Hypertensive heart disease with heart failure (HCC) 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 Gastro-esophageal reflux disease without esophagitis Esophageal reflux 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 Stage 3 chronic kidney [...] Loss of weight documented in this encounter [facility] note* Diagnosis Pre-op evaluation- Primary Preoperative examination, unspecified Hypertensive heart disease with heart failure (HCC) 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 Gastro-esophageal reflux disease without esophagitis Esophageal reflux 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 Stage 3 chronic kidney disease, unspecified whether stage 3a or 3b CKD (HCC) 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, unspecified laterality (HCC) Malignant neoplasm of overlapping sites of bladder (HCC) Malignant neoplasm of other specified sites of bladder documented in this encounter [facility] note* Diagnosis Pre-op evaluation- Primary Preoperative examination, unspecified Hypertensive heart disease with heart failure (HCC) 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 Gastro-esophageal reflux disease without esophagitis Esophageal reflux 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 Stage 3 chronic kidney [...] abnormal blood chemistry documented in this encounter [facility] note* Diagnosis Pre-op evaluation- Primary Preoperative examination, unspecified Hypertensive heart disease with heart failure (HCC) 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 Gastro-esophageal reflux disease without esophagitis Esophageal reflux 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 Stage 3 chronic kidney disease, unspecified whether stage 3a or 3b CKD (HCC) 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, unspecified laterality (HCC) Malignant neoplasm of overlapping sites of bladder (HCC) Malignant neoplasm of other specified sites of bladder documented in this encounter [facility] note* Diagnosis Pre-op evaluation- Primary Preoperative examination, unspecified Hypertensive heart disease with heart failure (HCC) 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 Gastro-esophageal reflux disease without esophagitis Esophageal reflux 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 Stage 3 chronic kidney disease, unspecified whether stage 3a or 3b CKD (HCC) 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, unspecified laterality (HCC) Malignant neoplasm of overlapping sites of bladder (HCC) Malignant neoplasm of other specified sites of bladder documented in this encounter [facility] note* Diagnosis Pre-op evaluation- Primary Preoperative examination, unspecified Hypertensive heart disease with heart failure (HCC) 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 Gastro-esophageal reflux disease without esophagitis Esophageal reflux 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 Stage 3 chronic kidney [...] unspecified site (HCC) documented in this encounter [facility] note* Diagnosis Chest discomfort- Primary Other chest pain documented in this encounter [facility] note* Diagnosis Pre-op evaluation- Primary Preoperative examination, unspecified Hypertensive heart disease with heart failure (HCC) 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 Gastro-esophageal reflux disease without esophagitis Esophageal reflux 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 Stage 3 chronic kidney disease, unspecified whether stage 3a or 3b CKD (HCC) 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, unspecified laterality (HCC) Malignant neoplasm of overlapping sites of bladder (HCC) Malignant neoplasm of other specified sites of bladder documented in this encounter [facility] note* Diagnosis Congenital hypothyroidism Dyslipidemia Other and unspecified hyperlipidemia documented in this encounter [facility] note* Diagnosis Pre-op evaluation- Primary Preoperative examination, unspecified Hypertensive heart disease with heart failure (HCC) 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 Gastro-esophageal reflux disease without esophagitis Esophageal reflux 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 Stage 3 chronic kidney [...] of ureteric orifice documented [facility] this [facility] [place] [facility]* Diagnosis Abscess Cellulitis and abscess of unspecified site [facility] [place] [facility]* Diagnosis Open wound of left chest wall, initial encounter- Primary 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 Infection of pacemaker pocket, initial encounter documented [facility]* Diagnosis Open wound of left chest wall, initial encounter- Primary Pacemaker complications, initial encounter documented in this encounter [facility]* Diagnosis Chest wall ulcer, 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, initial encounter Open wound of left chest wall, initial encounter documented in this encounter [facility] Narrative - Reported* Type Description Date Medical History colitis Medical HistoryhyperlipidemiaMedical HistoryHTNMedical HistoryKIDNEY CANCER Surgical HistoryKIDNEY REMOVED [facility] Other History general Narrative - Reported* Type Description Date Medical History colitis Medical HistoryhyperlipidemiaMedical HistoryHTNMedical HistoryKIDNEY CANCER Surgical HistoryKIDNEY REMOVEDHospitalization HistoryNo Hospitalization history information [facility] Other Hospital course Narrative No data available for this section [facility] [place] InstructionsNot on filedocumented in this encounter [facility]Not on filedocumented in this encounter [facility] SystemInstructionsNot on filedocumented in this encounter [facility] SystemInstructionsNot on filedocumented in this encounter [facility] note No data available for this section [facility] [place] Reason for referral (narrative)* Outpatient Procedure (Routine) - Pending ReviewSpecialtyDiagnoses / ProceduresReferred By Contact [facility] Diagnoses 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, unspecified laterality (HCC) Procedures ECG COMPLETE ECG ROUTINE ECG W/LEAST 12 LDS W/I&R Galen Bhatt MD [address] [facility] [address] [place] [address] [place] [address] Referral IDStatusReasonStart DateExpiration DateVisits RequestedVisits [id number] Auto-Generated [facility]erral [facility] (n[facility]ative)* Outpatient Procedure (Routine) - ClosedSpecialtyDiagnoses / ProceduresReferred By ContactReferred To Contact [facility] Diagnoses Pre-op evaluation Procedures ECG COMPLETE ECG ROUTINE ECG W/LEAST 12 LDS W/I&R Fatimah Salcedo PA-C [address] [address] [place] [address] Referral IDStatusReasonGuthrie Center DateExpiration DateVisits RequestedVisits [id number] Auto-Generated Referral [facility] Summary Purpose Family History No Family [...] Directive(s)08/11/2019 11:16 AMAdvance Directive(s)08/11/2019 11:21 AMTypeDate 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 ExplanationAdvance Directive(s)03/14/2022 4:48 PMAdvance Directive(s)11/01/2021 2:32 PMAdvance [...] Directive(s)08/11/2019 11:16 AMAdvance Directive(s)08/11/2019 11:21 AMTypeDate 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 ExplanationAdvance Directive(s)08/11/2019 11:21 AMTypeDate 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 RepresentativeExplanationAdvance Directive(s)08/11/2019 11:21 AMNameRelationship Healthcare Agent RelationshipCommunicationD[facility] Medical Center HaysChildPrimary Decision Maker * NameRelationshipHealthcare Agent RelationshipCommunCherokee Medical Center Primary Decision Maker* NameRelationshipHealthcare Agent RelationshipComP[facility] Primary Decision Maker* NameRelationshipHealthcare Agent RelationshipComPrisma Health [facility] Hospital Primary Decision Maker* Date ActivatedDate InactivatedComments04/19/2025 [...] Drug: Use appropriate PPE. Antineoplastic Irritant. New Bag/Syringe/Lcejta8301/15/2022 2:46 PM BKF555 mg dexAMETHasone 10 mg/NS 50 mL (PYXIS) 10 mg ivpb 10 mg, INTRAVENOUS, ONCE, 1 dose, On Sat01/15/22 at 1330, Refrigerate. New Bag/Syringe/Yjembg5901/15/2022 1:41 PM EDT10 mg gemcitabine 1,950 mg in NaCl 0.9% 250 mL (GEMZAR) 1,950 mg (1,000 mg/m2 1.95 m2 Treatment Plan BSA from Recorded weight), INTRAVENOUS, Administer over 30 Minutes, ONCE, 1 dose, On Sat01/15/22 at 1330, Approx Total Volume: mL EXP:_01/16/2022@1930 Hazardous Chemotherapy Drug: Use appropriate PPE. Antineoplastic Irritant. New Bag/Syringe/Lwmpgo6901/15/2022 2:09 PM EDT1,950 mg palonosetron 0.25 mg [...] Drug: Use appropriate PPE. Antineoplastic Irritant. New Bag/Syringe/Uhwngj2001/22/2022 1:33 PM EDT1,950 mg ondansetron (PF) 8 [...] Drug: Use appropriate PPE. Antineoplastic Irritant. New Bag/Syringe/Cmkrff9002/12/2022 2:58 PM [id number] mg dexAMETHasone 10 mg/NS 50 mL (PYXIS) 10 mg ivpb (DECADRON) 10 mg, INTRAVENOUS, ONCE, 1 dose, On Sat02/12/22 at 1400, Refrigerate. New Bag/Syringe/Cxswbk7802/12/2022 1:54 PM EDT10 mg gemcitabine 1,568 mg in NaCl 0.9% 250 mL (GEMZAR) 1,568 mg (800 mg/m2 1.96 m2 Treatment Plan BSA from Recorded weight), INTRAVENOUS, Administer over 30 Minutes, ONCE, 1 dose, On Sat02/12/22 at 1400, Approx Total Volume: mL EXP:_ 02/13/22 @ 1999 Hazardous Chemotherapy Drug: Use appropriate PPE. Antineoplastic Irritant. New Bag/Syringe/Jruolo6302/12/2022 2:24 PM EDT1,568 mg palonosetron 0.25 mg [...] 01/02/23@2200 Administer with 0.2 micron filter. New Bag/Syringe/Bvcrtu8401/02/2023 4:02 PM [id number] mgMedication OrderMAR Action Action DateDoseRateSite pembrolizumab 200 mg in NaCl 0.9% 66 mL (KEYTRUDA) 200 mg, INTRAVENOUS, Administer over 30 Minutes, ONCE, 1 dose, On Sat01/31/23 at 0930, EXP:L 01/31/23 1515 RT Administer with 0.2 micron filter. New Bag/Syringe/Pupwzy9101/31/2023 9:33 AM [id number] mgMedication OrderMAR Action Action DateDoseRateSite pembrolizumab 200 mg in NaCl 0.9% 66 mL (KEYTRUDA) 200 mg, INTRAVENOUS, Administer over 30 Minutes, ONCE, 1 dose, On Sat04/04/23 at 1130, Approx TotalVolume: 66 mL EXP: 1900 Administer with 0.2 micron filter. New Bag/Syringe/Lojyjz0704/04/2023 11:30 AM [id number] mgMedication OrderMAR Action Action DateDoseRateSite pembrolizumab 200 mg in NaCl 0.9% 66 mL (KEYTRUDA) 200 mg, INTRAVENOUS, Administer over 30 Minutes, ONCE, 1 dose, On Sat04/25/23 at 1400, Approx TotalVolume: 66 mL EXP: 04/25/23 2000 Administer with 0.2 micron filter. New Bag/Syringe/Wabpzz9504/25/2023 2:11 PM [id number] mgMedication OrderMAR Action Action DateDoseRateSite pembrolizumab 200 mg in NaCl 0.9% 66 mL (KEYTRUDA) 200 mg, INTRAVENOUS, Administer over 30 Minutes, ONCE, 1 dose, On Eusebia 05/16/23 at 1430, EXP: 0 RT Administer with 0.2 micron filter. New Bag/Syringe/Bgarfo4505/16/2023 2:40 PM [id number] mgMedication OrderMAR Action Action DateDoseRateSite pembrolizumab 200 mg in NaCl 0.9% 66 mL (KEYTRUDA) 200 mg, INTRAVENOUS, Administer over 30 Minutes, ONCE, 1 dose, On Eusebia 06/06/23 at 1430, EXP: 06/06/23 2030 RT Administer with 0.2 micron filter. New Bag/Syringe/Wsnhnz7606/06/2023 2:51 PM [id number] mgMedication OrderMAR Action Action DateDoseRateSite pembrolizumab 200 mg in NaCl 0.9% 66 mL (KEYTRUDA) 200 mg, INTRAVENOUS, Administer over 30 Minutes, ONCE, 1 dose, On Eusebia 06/27/23 at 1400, EXP: 214406/27/23 Administer with 0.2 micron filter. New Bag/Syringe/Jtiezk6506/27/2023 2:26 PM [id number] mgMedication OrderMAR Action Action DateDoseRateSite pembrolizumab 200 mg in NaCl 0.9% 66 mL (KEYTRUDA) 200 mg, INTRAVENOUS, Administer over 30 Minutes, ONCE, 1 dose, On Eusebia 07/18/23 at 1400, EXP: 1400 07/19/23 RF Administer with 0.2 micron filter. New Bag/Syringe/Ochcgn3107/18/2023 2:18 PM [id number] mgMedication OrderMAR Action Action DateDoseRateSite pembrolizumab 200 mg in NaCl 0.9% 66 mL (KEYTRUDA) 200 mg, INTRAVENOUS, Administer over 30 Minutes, ONCE, 1 dose, On Eusebia 09/19/23 at 1500, EXP: 2114 RTAdminister with 0.2 micron filter. New Bag/Syringe/Akckvn7909/19/2023 3:19 PM [id number] mg Reason for Referral SpecialtyDiagnoses / ProceduresReferred By ContactReferred To ContactCT IMAGING Diagnoses Malignant neoplasm of overlapping sites of bladder (HCC) Procedures CT CHEST W IVCON DIAGNOSTIC COMPUTED TOMOGRAPHY THORAX W/CONTRAST Graeme Vazquez MD [address] [place] [address] [place] [address] Ct Imaging Referral IDStatusReasonStart DateExpiration DateVisits RequestedVisits [id number] Auto-Generated Referral [id number] / ProceduresReferred By ContactReferred To ContactCT IMAGING Diagnoses Malignant neoplasm of overlapping sites of bladder (HCC) Procedures CT ABD/PEL W IVCON CT ABD & PELVIS W/CONTRAST Graeme Vazquez MD [address] [place] [address] Ct Imaging Referral IDStatusReasonStart DateExpiration DateVisits RequestedVisits [id number] Auto-Generated Referral Additional Source Comments (unrecognized sect ion and content) No Status Records FoundNo Status Records FoundNo Status Records FoundNo Status Records FoundNo Status Records FoundNo Status Records FoundNo Status Records FoundNo Status Records FoundNo Status Records FoundNo Status Records Found INFORMATION SOURCE (unrecogn ized section and content) DATE CREATED AUTHOR 04/30/2018 [facility] DATE CREATED AUTHOR AUTHOR'S ORGANIZ ATION 03/06/2019 [facility] DATE CREATED AUTHOR AUTHOR'S ORGANIZ ATION 03/24/2023 [facility] DATE CREATED AUTHOR AUTHOR'S ORGANIZ ATION 04/27/2023 [facility] DATE CREATED AUTHOR AUTHOR'S ORGANIZ ATION 01/22/[address] [facility] DATE CREATED AUTHOR AUTHOR'S ORGANIZ ATION 04/08/2025 [facility] DATE CREATED AUTHOR AUTHOR'S ORGANIZ ATION 04/26/2025 [facility] DATE CREATED AUTHOR AUTHOR'S ORGANIZ ATION 05/09/2025 [facility] DATE CREATED AUTHOR AUTHOR'S ORGANIZ ATION 05/18/2025 [facility] DATE CREATED AUTHOR AUTHOR'S ORGANIZ ATION 07/21/2025 [facility] Comments (unrecognize d section and content) In the event this informatio n is protected by the Federal Confidentiality of Alcohol and Drug Abuse Patient Records regulations: The Federal rules restrict any use of the information to criminally investigate or prosecute any alcohol or drug abuse patient.[facility] the event this information is protected by the Federal Confidentiality of Alcohol and Drug Abuse Patient Records regulations: The Federal rules restrict any use of the information to criminally investigate or prosecute any alcohol or drug abuse patient.[facility]In the event this information is protected by the Federal Confidentiality of Alcohol and Drug Abuse Patient Records regulations: The Federal rules restrict any use of the information to criminally investigate or prosecute any alcohol or drug abuse patient.[facility]In the event this information is protected by the Federal Confidentiality of Alcohol and Drug Abuse Patient Records regulations: The Federal rules restrict any use of the information to criminally investigate or prosecute any alcohol or drug abuse patient.[facility]In the event this information is protected by the Federal Confidentiality of Alcohol and Drug Abuse Patient Records regulations: The Federal rules restrict any use of the information to criminally investigate or prosecute any alcohol or drug abuse patient.[facility]In the event this information is protected by the Federal Confidentiality of Alcohol and Drug Abuse Patient Records regulations: The Federal rules restrict any use of the information to criminally investigate or prosecute any alcohol or drug abuse patient.[facility]In the event this information is protected by the Federal Confidentiality of Alcohol and Drug Abuse Patient Records regulations: The Federal rules restrict any use of the information to criminally investigate or prosecute any alcohol or drug abuse patient.[facility]In the event this information is protected by the Federal Confidentiality of Alcohol and Drug Abuse Patient Records regulations: The Federal rules restrict any use of the information to criminally investigate or prosecute any alcohol or drug abuse patient.[facility]In the event this information is protected by the Federal Confidentiality of Alcohol and Drug Abuse Patient Records regulations: The Federal rules restrict any use of the information to criminally investigate or prosecute any alcohol or drug abuse patient.[facility]In the event this information is protected by the Federal Confidentiality of Alcohol and Drug Abuse Patient Records regulations: The Federal rules restrict any use of the information to criminally investigate or prosecute any alcohol or drug abuse patient.[facility]In the event this information is protected by the Federal Confidentiality of Alcohol and Drug Abuse Patient Records regulations: The Federal rules restrict any use of the information to criminally investigate or prosecute any alcohol or drug abuse patient.[facility] HospitalIn the event this information is protected by the Federal Confidentiality of Alcohol and Drug Abuse Patient Records regulations: The Federal rules restrict any use of the information to criminally investigate or prosecute any alcohol or drug abuse patient.[facility] HospitalIn the event this information is protected by the Federal Confidentiality of Alcohol and Drug Abuse Patient Records regulations: The Federal rules restrict any use of the information to criminally investigate or prosecute any alcohol or drug abuse patient.[facility] HospitalIn the event this information is protected by the Federal Confidentiality of Alcohol and Drug Abuse Patient Records regulations: The Federal rules restrict any use of the information to criminally investigate or prosecute any alcohol or drug abuse patient.[facility] HospitalIn the event this information is protected by the Federal Confidentiality of Alcohol and Drug Abuse Patient Records regulations: The Federal rules restrict any use of the information to criminally investigate or prosecute any alcohol or drug abuse patient.[facility] HospitalIn the event this information is protected by the Federal Confidentiality of Alcohol and Drug Abuse Patient Records regulations: The Federal rules restrict any use of the information to criminally investigate or prosecute any alcohol or drug abuse patient.[facility] HospitalIn the event this information is protected by the Federal Confidentiality of Alcohol and Drug Abuse Patient Records regulations: The Federal rules restrict any use of the information to criminally investigate or prosecute any alcohol or drug abuse patient.[facility] HospitalIn the event this information is protected by the Federal Confidentiality of Alcohol and Drug Abuse Patient Records regulations: The Federal rules restrict any use of the information to criminally investigate or prosecute any alcohol or drug abuse patient.[facility] HospitalIn the event this information is protected by the Federal Confidentiality of Alcohol and Drug Abuse Patient Records regulations: The Federal rules restrict any use of the information to criminally investigate or prosecute any alcohol or drug abuse patient.[facility] HospitalIn the event this information is protected by the Federal Confidentiality of Alcohol and Drug Abuse Patient Records regulations: The Federal rules restrict any use of the information to criminally investigate or prosecute any alcohol or drug abuse patient.[facility] HospitalIn the event this information is protected by the Federal Confidentiality of Alcohol and Drug Abuse Patient Records regulations: The Federal rules restrict any use of the information to criminally investigate or prosecute any alcohol or drug abuse patient.[facility] HospitalIn the event this information is protected by the Federal Confidentiality of Alcohol and Drug Abuse Patient Records regulations: The Federal rules restrict any use of the information to criminally investigate or prosecute any alcohol or drug abuse patient.[facility] HospitalIn the event this information is protected by the Federal Confidentiality of Alcohol and Drug Abuse Patient Records regulations: The Federal rules restrict any use of the information to criminally investigate or prosecute any alcohol or drug abuse patient.[facility] HospitalIn the event this information is protected by the Federal Confidentiality of Alcohol and Drug Abuse Patient Records regulations: The Federal rules restrict any use of the information to criminally investigate or prosecute any alcohol or drug abuse patient.[facility] HospitalIn the event this information is protected by the Federal Confidentiality of Alcohol and Drug Abuse Patient Records regulations: The Federal rules restrict any use of the information to criminally investigate or prosecute any alcohol or drug abuse patient.[facility] HospitalIn the event this information is protected by the Federal Confidentiality of Alcohol and Drug Abuse Patient Records regulations: The Federal rules restrict any use of the information to criminally investigate or prosecute any alcohol or drug abuse patient.[facility] HospitalIn the event this information is protected by the Federal Confidentiality of Alcohol and Drug Abuse Patient Records regulations: The Federal rules restrict any use of the information to criminally investigate or prosecute any alcohol or drug abuse patient.[facility] HospitalIn the event this information is protected by the Federal Confidentiality of Alcohol and Drug Abuse Patient Records regulations: The Federal rules restrict any use of the information to criminally investigate or prosecute any alcohol or drug abuse patient.[facility] HospitalIn the event this information is protected by the Federal Confidentiality of Alcohol and Drug Abuse Patient Records regulations: The Federal rules restrict any use of the information to criminally investigate or prosecute any alcohol or drug abuse patient.[facility] HospitalIn the event this information is protected by the Federal Confidentiality of Alcohol and Drug Abuse Patient Records regulations: The Federal rules restrict any use of the information to criminally investigate or prosecute any alcohol or drug abuse patient.[facility] HospitalIn the event this information is protected by the Federal Confidentiality of Alcohol and Drug Abuse Patient Records regulations: The Federal rules restrict any use of the information to criminally investigate or prosecute any alcohol or drug abuse patient.[facility] HospitalIn the event this information is protected by the Federal Confidentiality of Alcohol and Drug Abuse Patient Records regulations: The Federal rules restrict any use of the information to criminally investigate or prosecute any alcohol or drug abuse patient.[facility] HospitalIn the event this information is protected by the Federal Confidentiality of Alcohol and Drug Abuse Patient Records regulations: The Federal rules restrict any use of the information to criminally investigate or prosecute any alcohol or drug abuse patient.[facility] HospitalIn the event this information is protected by the Federal Confidentiality of Alcohol and Drug Abuse Patient Records regulations: The Federal rules restrict any use of the information to criminally investigate or prosecute any alcohol or drug abuse patient.[facility] HospitalIn the event this information is protected by the Federal Confidentiality of Alcohol and Drug Abuse Patient Records regulations: The Federal rules restrict any use of the information to criminally investigate or prosecute any alcohol or drug abuse patient.[facility] HospitalIn the event this information is protected by the Federal Confidentiality of Alcohol and Drug Abuse Patient Records regulations: The Federal rules restrict any use of the information to criminally investigate or prosecute any alcohol or drug abuse patient.[facility] HospitalIn the event this information is protected by the Federal Confidentiality of Alcohol and Drug Abuse Patient Records regulations: The Federal rules restrict any use of the information to criminally investigate or prosecute any alcohol or drug abuse patient.[facility] HospitalIn the event this information is protected by the Federal Confidentiality of Alcohol and Drug Abuse Patient Records regulations: The Federal rules restrict any use of the information to criminally investigate or prosecute any alcohol or drug abuse patient.[facility] HospitalIn the event this information is protected by the Federal Confidentiality of Alcohol and Drug Abuse Patient Records regulations: The Federal rules restrict any use of the information to criminally investigate or prosecute any alcohol or drug abuse patient.[facility] HospitalIn the event this information is protected by the Federal Confidentiality of Alcohol and Drug Abuse Patient Records regulations: The Federal rules restrict any use of the information to criminally investigate or prosecute any alcohol or drug abuse patient.[facility] HospitalIn the event this information is protected by the Federal Confidentiality of Alcohol and Drug Abuse Patient Records regulations: The Federal rules restrict any use of the information to criminally investigate or prosecute any alcohol or drug abuse patient.[facility] HospitalIn the event this information is protected by the Federal Confidentiality of Alcohol and Drug Abuse Patient Records regulations: The Federal rules restrict any use of the information to criminally investigate or prosecute any alcohol or drug abuse patient.[facility] HospitalIn the event this information is protected by the Federal Confidentiality of Alcohol and Drug Abuse Patient Records regulations: The Federal rules restrict any use of the information to criminally investigate or prosecute any alcohol or drug abuse patient.[facility] HospitalIn the event this information is protected by the Federal Confidentiality of Alcohol and Drug Abuse Patient Records regulations: The Federal rules restrict any use of the information to criminally investigate or prosecute any alcohol or drug abuse patient.[facility] HospitalIn the event this information is protected by the Federal Confidentiality of Alcohol and Drug Abuse Patient Records regulations: The Federal rules restrict any use of the information to criminally investigate or prosecute any alcohol or drug abuse patient.[facility] HospitalIn the event this information is protected by the Federal Confidentiality of Alcohol and Drug Abuse Patient Records regulations: The Federal rules restrict any use of the information to criminally investigate or prosecute any alcohol or drug abuse patient.[facility] HospitalIn the event this information is protected by the Federal Confidentiality of Alcohol and Drug Abuse Patient Records regulations: The Federal rules restrict any use of the information to criminally investigate or prosecute any alcohol or drug abuse patient.[facility] HospitalIn the event this information is protected by the Federal Confidentiality of Alcohol and Drug Abuse Patient Records regulations: The Federal rules restrict any use of the information to criminally investigate or prosecute any alcohol or drug abuse patient.[facility] HospitalIn the event this information is protected by the Federal Confidentiality of Alcohol and Drug Abuse Patient Records regulations: The Federal rules restrict any use of the information to criminally investigate or prosecute any alcohol or drug abuse patient.[facility] HospitalIn the event this information is protected by the Federal Confidentiality of Alcohol and Drug Abuse Patient Records regulations: The Federal rules restrict any use of the information to criminally investigate or prosecute any alcohol or drug abuse patient.[facility] HospitalIn the event this information is protected by the Federal Confidentiality of Alcohol and Drug Abuse Patient Records regulations: The Federal rules restrict any use of the information to criminally investigate or prosecute any alcohol or drug abuse patient.[facility] HospitalIn the event this information is protected by the Federal Confidentiality of Alcohol and Drug Abuse Patient Records regulations: The Federal rules restrict any use of the information to criminally investigate or prosecute any alcohol or drug abuse patient.[facility] HospitalIn the event this information is protected by the Federal Confidentiality of Alcohol and Drug Abuse Patient Records regulations: The Federal rules restrict any use of the information to criminally investigate or prosecute any alcohol or drug abuse patient.[facility] HospitalIn the event this information is protected by the Federal Confidentiality of Alcohol and Drug Abuse Patient Records regulations: The Federal rules restrict any use of the information to criminally investigate or prosecute any alcohol or drug abuse patient.[facility] HospitalIn the event this information is protected by the Federal Confidentiality of Alcohol and Drug Abuse Patient Records regulations: The Federal rules restrict any use of the information to criminally investigate or prosecute any alcohol or drug abuse patient.[facility] HospitalIn the event this information is protected by the Federal Confidentiality of Alcohol and Drug Abuse Patient Records regulations: The Federal rules restrict any use of the information to criminally investigate or prosecute any alcohol or drug abuse patient.[facility] HospitalIn the event this information is protected by the Federal Confidentiality of Alcohol and Drug Abuse Patient Records regulations: The Federal rules restrict any use of the information to criminally investigate or prosecute any alcohol or drug abuse patient.[facility] HospitalIn the event this information is protected by the Federal Confidentiality of Alcohol and Drug Abuse Patient Records regulations: The Federal rules restrict any use of the information to criminally investigate or prosecute any alcohol or drug abuse patient.[facility] HospitalIn the event this information is protected by the Federal Confidentiality of Alcohol and Drug Abuse Patient Records regulations: The Federal rules restrict any use of the information to criminally investigate or prosecute any alcohol or drug abuse patient.[facility] HospitalIn the event this information is protected by the Federal Confidentiality of Alcohol and Drug Abuse Patient Records regulations: The Federal rules restrict any use of the information to criminally investigate or prosecute any alcohol or drug abuse patient.[facility] HospitalIn the event this information is protected by the Federal Confidentiality of Alcohol and Drug Abuse Patient Records regulations: The Federal rules restrict any use of the information to criminally investigate or prosecute any alcohol or drug abuse patient.[facility] HospitalIn the event this information is protected by the Federal Confidentiality of Alcohol and Drug Abuse Patient Records regulations: The Federal rules restrict any use of the information to criminally investigate or prosecute any alcohol or drug abuse patient.[facility] HospitalIn the event this information is protected by the Federal Confidentiality of Alcohol and Drug Abuse Patient Records regulations: The Federal rules restrict any use of the information to criminally investigate or prosecute any alcohol or drug abuse patient.[facility] HospitalIn the event this information is protected by the Federal Confidentiality of Alcohol and Drug Abuse Patient Records regulations: The Federal rules restrict any use of the information to criminally investigate or prosecute any alcohol or drug abuse patient.[facility] HospitalIn the event this information is protected by the Federal Confidentiality of Alcohol and Drug Abuse Patient Records regulations: The Federal rules restrict any use of the information to criminally investigate or prosecute any alcohol or drug abuse patient.[facility] HospitalIn the event this information is protected by the Federal Confidentiality of Alcohol and Drug Abuse Patient Records regulations: The Federal rules restrict any use of the information to criminally investigate or prosecute any alcohol or drug abuse patient.[facility] Reason for Visit (unrecogniz ed section and content) ReasonCommentsmalignant neoplasm of ureterfollow up treatmentReasonComments ureter cancerSpecialtyDiagnoses / ProceduresReferred By ContactReferred To Contact Diagnoses Malignant neoplasm of ureter (HCC) Soren Perea MD [address] [place] [address] [place] [address] Evens Treat Winsome [address] [place] [address] Referral IDStatusReasonStart DateExpiration DateVisits RequestedVisits [id number]/1/20225/2/[id number]ag cancer follow up treatmentReasonCommentsmalignant neoplasm of ureterReasonCommentsPre- Op TeachingReasonCommentsFollow UpReasonCommentsPre-Op VisitReasonCommentsPre-Op ExamReasonCommentsFollow UpReasonCommentsUreteral cancerTransition of care ReasonCommentsCare CoordinationReschedule appointmentReasonCommentsPatient UpdateReasonCommentsNon-Chemotherapy TreatmentPembrolizumabSpecialtyDiagnoses / ProceduresReferred By ContactReferred To Contact Diagnoses Malignant neoplasm of ureter, 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, 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) Graeme Vazquez MD [address] [place] [address] [place] [address] Evenslizbeth Fam [address] [place] [address] Referral IDStatusReasonStart DateExpiration DateVisits RequestedVisits [id number]/13/20236/[id number] DmockcptbqvsN4O8 Post Treatment CallReasonCommentsMalignant neoplasm of ureter New start treatmentReasonCommentsBladder CancerReasonCommentsReturn Call Request Call ptReasonCommentsBladder CancerReasonCommentsRadiology CTReasonOnset Date CommentsRefill Zmxetza9205/31/2023ReasonCommentsBladder CancerTreatment visit ReasonCommentsPost-Op VisitReasonCommentsCare CoordinationSore ThroatReason CommentsCare CoordinationFollow Up AppointmentSpecialtyDiagnoses / Procedures Referred By ContactReferred To Contact Diagnoses Malignant neoplasm of ureter, 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 Right sided sharp pains worsening with deep breath.ReasonCommentsCare CoordinationDiarrhea >1 monthReasonCommentsAppointment CancelledDiarrheaReason CommentsRadiology CTSpecialtyDiagnoses / ProceduresReferred By ContactReferred To ContactCT IMAGING Diagnoses Malignant neoplasm of urinary bladder, unspecified site (HCC) Procedures CT ABD/PEL W IVCON CT ABD & PELVIS W/CONTRAST Patricia Conteh, RELAY MOTORMAN.[address] [place] [address] [place] [address] Referral IDStatusReasonStart DateExpiration DateVisits RequestedVisits [id number] Auto-Generated Referral [id number] / ProceduresReferred By ContactReferred To ContactCT IMAGING Diagnoses Malignant neoplasm of overlapping sites of bladder (HCC) Procedures CT CHEST W IVCON DIAGNOSTIC COMPUTED TOMOGRAPHY THORAX W/CONTRAST Graeme Vazquez MD [address] [place] [address] [address] [place] [id number] Ct Imaging [facility]95 Referral IDStatusReasonStart DateExpiration DateVisits RequestedVisits [id number] Auto-Generated Referral /[id number] / ProceduresReferred By ContactReferred To ContactCT IMAGING Diagnoses 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), 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, unspecified site (HCC) Disorder of thyroid Abnormal blood chemistry Procedures CT ABD/PEL W IVCON CT ABD & PELVIS W/CONTRAST Graeme Vazquez MD [address] [place] [address] [address] [place] [phone] Ct Imaging [place] [address] Referral IDStatusReasonStart DateExpiration DateVisits RequestedVisits [id number] Auto-Generated Referral /[id number] IDStatusReasonStart DateExpiration DateVisits RequestedVisits [id number] Auto-Generated Referral /[id number] CTSpecialtyDiagnoses / Procedures Referred By ContactReferred To ContactCT IMAGING Diagnoses Malignant 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95 Referral IDStatusReasonStart DateExpiration DateVisits RequestedVisits [id number] Auto-Generated Referral /[id number]znyw feels like its moving . Referral IDStatusReasonStart DateExpiration DateVisits RequestedVisits [id number] Auto-Generated Referral /[id number] CheckSpecialtyDiagnoses / Procedures Referred By ContactReferred To ContactWound Care Diagnoses Surgical wound present Open wound of left chest wall, initial encounter Mahogany Fragoso, RELAY MOTORMANENCOMPASS [facility] [address] [place] [address] Phone: tel: fax: [facility] [address] [place] [phone] Phone: tel: Referral IDStatusReasonStart DateExpiration DateVisits RequestedVisits [id number] Review Specialty Services Required 1ReasonOnset DateCommentsExtraction site05/05/2025ReasonOnset QpaiHioihcbeHnebgkkw71/23/6581KqztvpYmuhtbjeYljgxs-jtzr-sohmz-scheduled w/ptstatus post dual-chamber leadless pacemakerChest infection due to the pacemakerAtrial FibrillationShortness of BreathReasonCommentsWound Check SpecialtyDiagnoses / ProceduresReferred By ContactReferred To ContactWound Care Diagnoses Surgical wound present Open wound of left chest wall, initial encounter Mahogany Fragoso, RELAY MOTORMANSPUD GRADER [address] [place] [address] Phone: tel: fax: [facility] [address] [place] [phone] Phone: tel: Referral IDStatusReasonStart DateExpiration DateVisits RequestedVisits [id number] Review Specialty Services Required Care Teams (unrecognized sec tion and content) Team MemberRelationshipSpecialtyStart DateEnd Date Sergio Sneed MD [address] [place] [address] PCP - GeneralFamily Aoyrjzmj44/17/19 Jian Rodriguez MD [address] [place] [address] PhysicianUrology1 Lauren Mckeon, RN [address] [facility] [place] [address] Specialty Care CoordinatorHematology/Oncology11/21/21 Soren Perea MD [address] [facility] [place] [address] PhysicianHematology/Oncology11/21/21 Corazon Maxwell, PAEnocC [address] [facility] [place] [address] Physician AssistantHematology/Oncology11/21/21Te MemberRelationshipSpecialty Start DateEnd Date Sergio Sneed MD [address] [place] [address] PCP - GeneralFamily Uxmrpsnr12/17/19 Jian Rodriguez MD [address] [place] [address] PhysicianUrology1 Lauren Mckeon, RN [address] [facility] [place] [address] Specialty Care CoordinatorHematology/Oncology11/21/21 Soren Perea MD [address] [facility] [address] [place], [facility]70 PhysicianHematology/Oncology2 Corazon Maxwell, PAEnocC [address] [facility] [place] [address] Physician AssistantHematology/Oncology11/21/21Te MemberRelationshipSpecialty Start DateEnd Date Sergio Sneed MD [address] [place] [address] PCP - GeneralFamily Biqbtvvm97/17/19 Jian Rodriguez MD [address] [place] [address] PhysicianUrology1/ Lauren Mckeon, RN [address] [facility] [place] [address] Specialty Care CoordinatorHematology/Oncology11/21/21 Soren Perea MD [address] [facility] [address] [place], [facility]70 PhysicianHematology/Oncology11/21/21 Corazon Maxwell, PAEnocC [address] [facility] [place] [address] Physician AssistantHematology/Oncology11/21/21Te MemberRelationshipSpecialty Start DateEnd Date Sergio Sneed MD [address] [place] [id number] PCP - GeneralFamily Bmyoeupv36/17/19 Jian Rodriguez MD [address] [place] [address] PhysicianUrology1 Lauren Mckeon, RN [address] [facility] [address] Specialty Care CoordinatorHematology/Oncology11/21/21 Soren Perea MD [address] [facility] [address] [place], [facility]70 PhysicianHematology/Oncology11/21/21 Corazon Maxwell, PA-C [address] [facility] [place] [address] Physician AssistantHematology/Oncology11/21/21Te MemberRelationshipSpecialty Start DateEnd Date Sergio Sneed MD [address] [place] [address] PCP - GeneralFamily Avhanivx24/17/19 Jian Rodriguez MD [address] [place] [address] PhysicianUrology1 Lauren Mckeon, RN [address] [facility] [address] Specialty Care CoordinatorHematology/Oncology2 Soren Perea MD [address] [facility] [place] [address] PhysicianHematology/Oncology2 Corazon Maxwell PA-C [address] [facility] [place] [address] Physician AssistantHematology/Oncology11/21/21Te MemberRelationshipSpecialty Start DateEnd Date Sergio Sneed MD [address] [place] [address] PCP - GeneralFamily Evukzsqo05/17/19 Jian Rodriguez MD [address] [place] [address] PhysicianUrology1 Lauren Mckeon, RN [address] [facility] [place] [address] Specialty Care CoordinatorHematology/Oncology11/21/21 Soren Perea MD [address] [facility] [place] [address] PhysicianHematology/Oncology2 Corazon Maxwell PA-C [address] [facility] [place] [address] Physician AssistantHematology/Oncology11/21/21Te MemberRelationshipSpecialty Start DateEnd Date Sergio Sneed MD [address] [place] [address] PCP - GeneralFamily Fberxgoo63/17/19 iJan Rodriguez MD [address] [place] [address] PhysicianUrology1/ Lauren Mckeon RN [address] [place] [address] Specialty Care CoordinatorHematology/Oncology2 Soren Perea MD [address] [facility] [place] [address] PhysicianHematology/Oncology2 Corazon Maxwell, CHRISTINA [address] [place] [address] Physician AssistantHematology/Oncology2Te MemberRelationshipSpecialty Start DateEnd Date Sergio Sneed MD [address] [place] [address] PCP - GeneralFamily Zblpqbyg75/17/19 Jian Rodriguez MD [address] [place] [address] PhysicianUrology1 Lauren Mckeon RN [address] [place] [address] Specialty Care CoordinatorHematology/Oncology11/21/21 Soren Perea MD [address] [facility] [address] [place], [facility]70 PhysicianHematology/Oncology2 Corazon Maxwell PA-C [address] [place] [address] Physician AssistantHematology/Oncology11/21/21Te MemberRelationshipSpecialty Start DateEnd Date Sergio Sneed MD [address] [place] [address] PCP - GeneralFamily Jfjimvrf33/17/19 Jian Rodriguez MD [address] [place] [address] PhysicianUrology1//20 Lauren Mckeon, RN [address] [facility] [place] [address] Specialty Care CoordinatorHematology/Oncology11/21/21 Soren Perea MD [address] [facility] [place] [address] PhysicianHematology/Oncology11/21/21 Corazon Maxwell PA-C [address] [facility] [address] [place], [facility]70 Physician AssistantHematology/Oncology11/21/21Te MemberRelationshipSpecialty Start DateEnd Date Sergio Sneed MD [address] [place] [address] PCP - GeneralFamily Skkorfsh40/17/19 Jian Rodriguez MD [address] [place] [address] PhysicianUrolog10/28/19 Lauren Mckeon, RN [address] [place] [address] Specialty Care CoordinatorHematology/Oncology11/21/21 Soren Perea MD [address] [facility] [address] [place], [facility]70 PhysicianHematology/Oncology11/21/21 Corazon Maxwell PA-C [address] [place], [facility]70 Physician AssistantHematology/Oncology11/21/21Te MemberRelationshipSpecialty Start DateEnd Date Sergio Sneed MD [address] [place] [address] PCP - GeneralFamily Hfucueqd69/17/19 Jian Rodriguez MD [address] [place] [address] PhysicianUrology1 Lauren Mckeon, RN [address] [place] [address] Specialty Care CoordinatorHematology/Oncology11/21/21 Soren Perea MD [address] [facility] [place] [address] PhysicianHematology/Oncology11/21/21 Corazon Maxwell, PA-C [address] [place] [address] Physician AssistantHematology/Oncology11/21/21Te MemberRelationshipSpecialty Start DateEnd Date Sergio Sneed MD [address] [place] [address] PCP - GeneralFamily Jqegoffp64/17/19 Jian Rodriguez MD [address] [place] [address] PhysicianUrology1 Soren Perea MD [address] [facility] [address] [place], [facility]70 PhysicianHematology/Oncology11/21/21 Keven Castaneda MD [address] [facility] [address] [place] [address] Gqsnbyeldc99/30/22Te MemberRelationshipSpecialtyStart DateEnd Date Sergio Sneed MD [address] [place] [address] PCP - GeneralFamily Qwzuzqep53/17/19 Jian Rodriguez MD [address] [place] [address] PhysicianUrolog10/28/19 Soren Perea MD [address] [facility] [place] [address] PhysicianHematology/Oncology11/21/21 Keven Castaneda MD [address] [place] [address] Keckgsgdqf82/30/22Te MemberRelationshipSpecialtyStart DateEnd Date Sergio Sneed MD [address] [place] [address] PCP - GeneralFamily Bodgwbzq70/17/19 Jian Rodriguez MD [address] [place] [address] PhysicianUrology1 Soren Perea MD [address] [facility] [place] [address] PhysicianHematology/Oncology2 Keven Castaneda MD [address] [facility] [address] [place] [address] Dktxejfdnt06/30/22Te MemberRelationshipSpecialtyStart DateEnd Date Sergio Sneed MD [address] [place] [address] PCP - GeneralFamily Bhpmkdif76/17/19 Jian Rodriguez MD [address] [place] [address] PhysicianUrology1 Soren Perea MD [address] [facility] [place] [address] PhysicianHematology/Oncology2 Keven Castaneda MD [address] [facility] [address] [place] [address] Aqhxoztztl34/30/22Te MemberRelationshipSpecialtyStart DateEnd Date Sergio Sneed MD [address] [place] [address] PCP - GeneralFamily Mavnfkdb50/17/19 Jian Rodriguez MD [address] [place] [address] PhysicianUrolog10/28/19 Soren Perea MD [address] [facility] [place] [address] PhysicianHematology/Oncology11/21/21 Keven Castaneda MD [address] [place] [address] Qqxwddeovr74/30/22Team MemberRelationshipSpecialtyStart DateEnd Date Sergio Sneed MD [address] [place] [id number] PCP - GeneralFamily Pgrrezla65/17/19 Jian Rodriguez MD [address] [place] [address] PhysicianUrolog10/28/19 Soren Perea MD [address] [facility] [address] [place], [facility]70 PhysicianHematology/Oncology11/21/21 Keven Castaneda MD [address] [place] [address] Mckxzovfog45/30/22Team MemberRelationshipSpecialtyStart DateEnd Date Sergio Sneed MD PCP - GeneralFamily Vouzqaoo05/17/19 Jian Rodriguez MD [address] [place] [address] PhysicianUrolog10/28/19 Keven Castaneda MD [address] [place] [address] Utfvhnnveg06/30/22 Graeme Vazquez MD [address] [place] [address] PhysicianHematology/Oncology12/26/22 Margot So, SUNIL [address] [place] [address] Specialty Care CoordinatorHematology/Oncology12/26/22 Patricia Conteh, RELAY MOTORMAN.SPUD GRADER [address] [place] [address] Nurse PractitionerHematology/Oncology12/26/22Team MemberRelationshipSpecialty Start DateEnd Date Sergio Sneed MD PCP - GeneralFamily Asrrfwxx37/17/19 Jian Rodriguez MD [address] [place] [address] PhysicianUrolog10/28/19 Keven Castaneda MD [address] [place] [address] Shgnnooaor45/30/22 Graeme Vazquez MD [address] [place] [address] PhysicianHematology/Oncology12/26/22 Margot So, SUNIL [address] [place] [address] Specialty Care CoordinatorHematology/Oncology12/26/22 Patricia Conteh, RELAY MOTORMAN.SPUD GRADER [address] [place] [address] Nurse PractitionerHematology/Oncology12/26/22Team MemberRelationshipSpecialty Start DateEnd Date Sergio Sneed MD PCP - GeneralFamily Okjmkthq88/17/19 Jian Rodriguez MD [address] [place] [address] PhysicianUrolog10/28/19 Keven Castaneda MD [address] [place] [address] Xyaqrusecq78/30/22 Graeme Vazquez MD [address] [place] [address] PhysicianHematology/Oncology12/26/22 Margot So, RN [address] [place] [address] Specialty Care CoordinatorHematology/Oncology12/26/22 Patricia Conteh, RELAY MOTORMAN.SPUD GRADER [address] [place] [address] Nurse PractitionerHematology/Oncology12/26/22Team MemberRelationshipSpecialty Start DateEnd Sergio Sneed MD PCP - GeneralFamily Atbplnim48/17/19 Jian Rodriguez MD [address] [place] [address] PhysicianUrolog10/28/19 Keven Castaneda MD [address] [place] [address] Fcvruiucjy35/30/22 Graeme Vazquez MD [address] [place] [address] PhysicianHematology/Oncology12/26/22 Margot So, RN [address] [place] [address] Specialty Care CoordinatorHematology/Oncology12/26/22 Patricia Conteh, RELAY MOTORMAN.SPUD GRADER [address] [place] [address] Nurse PractitionerHematology/Oncology12/26/22Team MemberRelationshipSpecialty Start DateEnd Date Sergio Sneed MD PCP - [facility] Systemly Urydrnao68/17/19 Jian Rodriguez MD [address] [place] [address] PhysicianUrolog10/28/19 Keven Castaneda MD [address] [place] [address] Yebacdovsr25/30/22 Graeme Vazquez MD [address] [place] [address] PhysicianHematology/Oncology12/26/22 Margot So, SUNIL [address] [place] [address] Specialty Care CoordinatorHematology/Oncology12/26/22 Patricia Conteh, RELAY MOTORMAN.SPUD GRADER [address] [place] [address] Nurse PractitionerHematology/Oncology12/26/22Te MemberRelationshipSpecialty Start DateEnd Date Sergio Sneed MD PCP - [facility] Munuyamj12/17/19 Jian Rodriguez MD [address] [place] [address] PhysicianUrolog10/28/19 Keven Castaneda MD [address] [place] [address] Odsdfbkpcs63/30/22 Graeme Vazquez MD [address] [place] [address] PhysicianHematology/Oncology3 Margot So, SUNIL [address] [place] [address] Specialty Care CoordinatorHematology/Oncology12/26/22 Patricia oCnteh, RELAY MOTORMAN.SPUD GRADER [address] [place] [address] Nurse PractitionerHematology/Oncology12/26/22Team MemberRelationshipSpecialty Start DateEnd Date Sergio Sneed MD PCP - GeneralFamily Vjnqwziz03/17/19 Jian Rodriguez MD PhysicianUrolog10/28/19 Keven Castaneda MD [address] [place] [address] Kndgmmlsqz16/30/22 Graeme Vazquez MD [address] [place] [address] PhysicianHematology/Oncology12/26/22 Margot So, SUNIL [address] [place] [address] Specialty Care CoordinatorHematology/Oncology12/26/22 Patricia Conteh, RELAY MOTORMAN.SPUD GRADER [address] [place] [address] Nurse PractitionerHematology/Oncology3Team MemberRelationshipSpecialty Start DateEnd Date Sergio Sneed MD PCP - GeneralFamily Ryenligf07/17/19 Jian Rodriguez MD PhysicianUrolog10/28/19 Keven Castaneda MD [address] [facility] [address] [place] [address] Szsprlwrgf98/30/22 Graeme Vazquez MD [address] [place] [address] PhysicianHematology/Oncology12/26/22 Margot So, SUNIL [address] [place] [address] Specialty Care CoordinatorHematology/Oncology12/26/22 Patricia Conteh, RELAY MOTORMAN.[facility] [address] [place] [address] Nurse PractitionerHematology/Oncology12/26/22Team MemberRelationshipSpecialty Start DateEnd Sergio Sneed MD PCP - GeneralFamily Prkrszdc12/17/19 Jian Rodriguez MD PhysicianUrolog10/28/19 Keven Castaneda MD [address] [facility] [address] [place] [address] Bkozvzbwex70/30/22 Graeme Vazquez MD [address] [place] [address] [place] [address] PhysicianHematology/Oncology3 Margot So, SUNIL [address] [facility] [place] [address] Specialty Care CoordinatorHematology/Oncology12/26/22 Patricia Conteh, RELAY MOTORMAN.SPUD GRADER [address] [place] [address] Nurse PractitionerHematology/Oncology12/26/22Team MemberRelationshipSpecialty Start DateEnd Date Sergio Sneed MD PCP - GeneralFami Bvnkwnuf21/17/19 Jian Rodriguez MD PhysicianUrolog10/28/19 Keven Castaneda MD [address] [facility] [address] [place] [address] Bjmufoaufu33/30/22 Graeme Vazquez MD [address] [place] [address] PhysicianHematology/Oncology12/26/22 Margot So RN [address] [facility] [place] [address] Specialty Care CoordinatorHematology/Oncology12/26/22 Patricia Conteh, RELAY MOTORMAN.SPUD GRADER [address] [place] [address] Nurse PractitionerHematology/Oncology12/26/22Team MemberRelationshipSpecialty Start DateEnd Date Sergio Sneed MD PCP - GeneralFamily Bgxlkwrb60/17/19 Jian Rodriguez MD PhysicianUrology1 Keven Castaneda MD [address] [facility] [address] [place] [address] Dgingcsnel97/30/22 Graeme Vazquez MD [address] [facility] [place] [address] PhysicianHematology/Oncology12/26/22 Margot So, SUNIL [address] [facility] [place] [address] Specialty Care CoordinatorHematology/Oncology12/26/22 Patricia Conteh APRN.SPUD GRADER [address] [facility] [address] Nurse PractitionerHematology/Oncology12/26/22Team MemberRelationshipSpecialty Start DateEnd Date Sergio Sneed MD PCP - GeneralFamily Sdsxhxeg94/17/19 Jian Rodriguez MD PhysicianUrology1 Keven Castaneda MD [address] [facility] [address] [place] [address] Kqzmosrati50/30/22 Graeme Vazquez MD [address] [facility] [address] PhysicianHematology/Oncology12/26/22 Margot So, SUNIL [address] [place] [address] Specialty Care CoordinatorHematology/Oncology12/26/22 Patricia Conteh APRN.SPUD GRADER [address] [place] [address] [place] [address] Nurse PractitionerHematology/Oncology12/26/22Team MemberRelationshipSpecialty Start DateEnd Date Sergio Sneed MD PCP - GeneralFamily Omhttynn69/17/19 Jian Rodriguez MD PhysicianUrolog10/28/19Te MemberRelationshipSpecialtyStart DateEnd Date Sergio Sneed MD PCP - GeneralFamily Prwvduwr98/17/19 Jian Rodriguez MD PhysicianUrolog10/28/19 Keven Castaneda MD [address] [facility] [address] [place] [address] Kavgtbuwgq87/30/22 Graeme Vazquez MD [address] [place] [address] [place] [address] PhysicianHematology/Oncology12/26/22 Margot So, SUNIL [address] [place] [address] Specialty Care CoordinatorHematology/Oncology3 Patricia Conteh, RELAY MOTORMAN.SPUD GRADER [address] [place] [address] Nurse PractitionerHematology/Oncology12/26/22Team MemberRelationshipSpecialty Start DateEnd Date Sergio Sneed MD PCP - GeneralFamily Szvcxmyh83/17/19 Jian Rodriguez MD PhysicianUrolog10/28/19 Keven Castaneda MD [address] [facility] [address] [place] [address] Xxwfjcfoup28/30/22 Graeme Vazquez MD [address] [place] [address] PhysicianHematology/Oncology12/26/22 Margot So, RN [address] [place] [address] Specialty Care CoordinatorHematology/Oncology12/26/22 Patricia Conteh, RELAY MOTORMAN.SPUD GRADER [address] [place] [address] Nurse PractitionerHematology/Oncology12/26/22Team MemberRelationshipSpecialty Start DateEnd Date Sergio Sneed MD PCP - GeneralFamily Ascidupj55/17/19 Jian Rodriguez MD PhysicianUrolog10/28/19 Keven Castaneda MD [address] [place] [address] Qqmhujvegr72/30/22 Graeme Vazquez MD [address] [place] [address] PhysicianHematology/Oncology12/26/22 Margot So, SUNIL [address] [facility] [place] [address] Specialty Care CoordinatorHematology/Oncology12/26/22 Patricia Conteh APRN.SPUD GRADER [address] [place] [address] [address] [place], [facility] Nurse PractitionerHematology/Oncology12/26/22Team MemberRelationshipSpecialty Start DateEnd Sergio Sneed MD PCP - GeneralFamily Pososngc08/17/19 Jian Rodriguez MD PhysicianUrolog10/28/19 Keven Castaneda MD [address] [facility] [address] [place] [address] Pyimwqyiei70/30/22 Graeme Vazquez MD [address] [place] [address] PhysicianHematology/Oncology12/26/22 Margot So, RN [address] [place] [address] Specialty Care CoordinatorHematology/Oncology12/26/22 Patricia Conteh, RELAY MOTORMAN.SPUD GRADER [address] [place] [address] Nurse PractitionerHematology/Oncology12/26/22Team MemberRelationshipSpecialty Start DateEnd Date Sergio Sneed MD PCP - GeneralFamily Sxrjhmxp35/17/19 Jian Rodriguez MD PhysicianUrolog10/28/19 Keven Castaneda MD [address] [facility] [address] [place] [address] Otdvllyhhs43/30/22 Graeme Vazquez MD [address] [place] [address] PhysicianHematology/Oncology12/26/22 Margot So RN [address] [place] [address] Specialty Care CoordinatorHematology/Oncology12/26/22 Patricia Conteh, RELAY MOTORMAN.SPUD GRADER [address] [place] [address] Nurse PractitionerHematology/Oncology12/26/22Team MemberRelationshipSpecialty Start DateEnd Date Sergio Sneed MD PCP - GeneralFamily Uitcbsvr95/17/19 Jian Rodriguez MD PhysicianUrology1 Keven Castaneda MD [address] [facility] [address] [place] [address] Fadunyicid54/30/22 Graeme Vazquez MD [address] [facility] [place] [address] PhysicianHematology/Oncology12/26/22 Margot So, RN [address] [facility] [place] [address] Specialty Care CoordinatorHematology/Oncology12/26/22 Patricia Conteh, MARSHA.SPUD GRADER [address] [place] [address] Nurse PractitionerHematology/Oncology12/26/22Team MemberRelationshipSpecialty Start DateEnd Date Sergio Sneed MD PCP - GeneralFamily Sxpukxuf71/17/19 Jian Rodriguez MD PhysicianUrology1 Keven Castaneda MD [address] [facility] [address] [place] [address] Fcmeebpoyf33/30/22 Graeme Vazquez MD [address] [place] [address] PhysicianHematology/Oncology3 Margot So, SUNIL [address] [place] [address] Specialty Care CoordinatorHematology/Oncology12/26/22 Patricia Conteh, RELAY MOTORMAN.SPUD GRADER [address] [place] [address] Nurse PractitionerHematology/Oncology12/26/22Team MemberRelationshipSpecialty Start DateEnd Date Sergio Sneed MD PCP - Generalmi Uyyaqeiw06/17/19 Jian Rodriguez MD PhysicianUrolog10/28/19 Keven Castaneda MD [address] [place] [address] Envwvybncv55/30/22 Graeme Vazquez MD [address] [place] [address] PhysicianHematology/Oncology12/26/22 Margot So RN [address] [place] [address] Specialty Care CoordinatorHematology/Oncology12/26/22 Patricia Conteh, RELAY MOTORMAN.SPUD GRADER [address] [place] [address] Nurse PractitionerHematology/Oncology12/26/22Team MemberRelationshipSpecialty Start DateEnd Date Sergio Sneed MD PCP - GeneralFamily Vqddcedo51/17/19 Jian Rodriguez MD PhysicianUrology1 Keven Castaneda MD [address] [facility] [address] [place] [address] Dubpeuraua04/30/22 Graeme Vazquez MD [address] [place] [address] PhysicianHematology/Oncology12/26/22 Margot So, SUNIL [address] [facility] [address] Specialty Care CoordinatorHematology/Oncology12/26/22 Patricia Conteh APRN.SPUD GRADER [address] [facility] [address] Nurse PractitionerHematology/Oncology12/26/22Team MemberRelationshipSpecialty Start DateEnd Date Sergio Sneed MD PCP - GeneralFamily Eiehlfkr51/17/19 Jian Rodriguez MD PhysicianUrology1 Keven Castaneda MD [address] [facility] [address] [place] [phone] Urwxgqllwa08/30/22 Graeme Vazquez MD [address] [facility] [place] [address] PhysicianHematology/Oncology3 Margot oS, SUNIL [address] [place] [address] Specialty Care CoordinatorHematology/Oncology3 Patricia Conteh, RELAY MOTORMAN.SPUD GRADER [address] [place] [address] [place] [address] Nurse PractitionerHematology/Oncology12/26/22Team MemberRelationshipSpecialty Start DateEnd Date Sergio Sneed MD PCP - GeneralFamily Cuahmlch93/17/19 Jian Rodriguez MD PhysicianUrolog10/28/19 Keven Castaneda MD [address] [facility] [address] [place] [address] Hrvdapdklf11/30/22 Graeme Vazquez MD [address] [place] [address] [place] [address] PhysicianHematology/Oncology12/26/22 Margot So, SUNIL [address] [place] [address] Specialty Care CoordinatorHematology/Oncology12/26/22 Patricia Conteh, RELAY MOTORMAN.SPUD GRADER [address] [place] [address] [place] [address] Nurse PractitionerHematology/Oncology3Team MemberRelationshipSpecialty Start DateEnd Date Sergio Sneed MD PCP - GeneralFamily Uicbymph48/17/19 Jian Rodriguez MD PhysicianUrolog10/28/19 Keven Castaneda MD [address] [place] [address] Mbrrasxmbd10/30/22 Graeme Vazquez MD [address] [place] [address] [place] [address] PhysicianHematology/Oncology12/26/22 Margot So, SUNIL [address] [facility] [place] [id number] Specialty Care CoordinatorHematology/Oncology12/26/22 Patricia Conteh APRN.SPUD GRADER [address] [place] [address] [place] [address] Nurse PractitionerHematology/Oncology12/26/22Team MemberRelationshipSpecialty Start DateEnd Date Sergio Sneed MD PCP - GeneralFamily Yxrtzxac27/17/19 Jian Rodriguez MD PhysicianUrolog10/28/19 Keven Castaneda MD [address] [facility] [address] [place] [address] Iehkzpwmrf24/30/22 Graeme Vazquez MD [address] [place] [address] PhysicianHematology/Oncology3 Margot So, RN [address] [place] [address] Specialty Care CoordinatorHematology/Oncology12/26/22 Patricia Conteh, RELAY MOTORMAN.SPUD GRADER [address] [place] [address] Nurse PractitionerHematology/Oncology12/26/22Team MemberRelationshipSpecialty Start DateEnd Date Sergio Sneed MD PCP - GeneralFamily Yejdglrl44/17/19 Jian Rodriguez MD PhysicianUrolog10/28/19 Keven Castaneda MD [address] [facility] [address] [place] [address] Tuimgmovyc19/30/22 Graeme Vazquez MD [address] [place] [address] PhysicianHematology/Oncology12/26/22 Margot oS, SUNIL [address] [place] [address] Specialty Care CoordinatorHematology/Oncology12/26/22 Patricia Conteh, RELAY MOTORMAN.SPUD GRADER [address] [place] [address] Nurse PractitionerHematology/Oncology3/15/23Team MemberRelationshipSpecialty Start DateEnd Date Sergio Sneed MD PCP - GeneralFamily Zgrvjiyl81/17/19 Jian Rodriguez MD PhysicianUrolog10/28/19 Keven Castaneda MD [address] [facility] [address] [place] [address] Pgtrwdzjpe95/30/22 Graeme Vazquez MD [address] [place] [address] PhysicianHematology/Oncology12/26/22 Margot So, SUNIL [address] [place] [address] Specialty Care CoordinatorHematology/Oncology12/26/22 Patricia Conteh APRN.SPUD GRADER [address] [place] [address] Nurse PractitionerHematology/Oncology12/26/22Te MemberRelationshipSpecialty Start DateEnd Date Marilu Roach CNP [address] [place], [place] [id number] PCP - GeneralNurse Practitioner05/18/24 Jian Rodriguez MD PhysicianUrolog10/28/19 Keven Castaneda MD [address] [facility] [address] [place] [address] Fewhbnyetk38/30/22 Graeme Vazquez MD [address] [place] [address] PhysicianHematology/Oncology3 Margot So, SUNIL [address] [place] [address] Specialty Care CoordinatorHematology/Oncology12/26/22 Patricia Conteh, RELAY MOTORMAN.SPUD GRADER [address] [place] [address] [place] [address] Nurse PractitionerHematology/Oncology12/26/22Team MemberRelationshipSpecialty Start DateEnd Date Sergio Sneed MD PCP - GeneralFamily Bslfuwmz34/17//02/04 Jian Rodriguez MD PhysicianUrolog10/28/19 Keven Castaneda MD [address] [facility] [address] [place] [address] Wqlknixbsd97/30/22 Graeme Vazquez MD [address] [place] [address] PhysicianHematology/Oncology12/26/22 Margot So, RN [address] [place] [address] Specialty Care CoordinatorHematology/Oncology12/26/22 Patricia Conteh, RELAY MOTORMAN.SPUD GRADER [address] [place] [address] [place] [address] Nurse PractitionerHematology/Oncology12/26/22Team MemberRelationshipSpecialty Start DateEnd Date Sergio Sneed MD PCP - GeneralFamily Ffqboepv70/17/ Jian Rodriguez MD PhysicianUrolog10/28/19 Keven Castaneda MD [address] [facility] [address] [place] [address] Yebcevfbgm82/30/22 Graeme Vazquez MD [address] [place] [address] [place] [address] PhysicianHematology/Oncology12/26/22 Margot So, SUNIL [address] [place] [address] [place] [address] Specialty Care CoordinatorHematology/Oncology12/26/22 Patricia Conteh APRN.SPUD GRADER [address] [place] [address] [place] [address] Nurse PractitionerHematology/Oncology12/26/22Team MemberRelationshipSpecialty Start DateEnd Date Marilu Roach CNP [address] [facility] [place] [address] PCP - GeneralNurse Practitioner05/18/24 Jian Rodriguez MD PhysicianUrolog10/28/19 Keven Castaneda MD [address] [facility] [address] [place] [address] Rcpqjqxxbi71/30/22 Graeme Vazquez MD [address] [facility] [place] [address] PhysicianHematology/Oncology12/26/22 Margot So, RN [address] [facility] [place] [address] Specialty Care CoordinatorHematology/Oncology12/26/22 Patricia Conteh APRN.[facility] [address] [facility] [place] [address] Nurse PractitionerHematology/Oncology12/26/22Team MemberRelationshipSpecialty Start DateEnd Date Sergio Sneed MD PCP - GeneralFamily Ehptgvlu67/17/198/02/04 Jian Rodriguez MD PhysicianUrolog10/28/19 Keven Castaneda MD [address] [facility] [address] [place] [address] Pbuqolthnm47/30/22 Graeme Vazquez MD [address] [facility] [place] [address] PhysicianHematology/Oncology12/26/22 Margot So, RN [address] [facility] [place] [address] Specialty Care CoordinatorHematology/Oncology12/26/22 Patricia Conteh, RELAY MOTORMAN.SPUD GRADER [address] [place] [address] Nurse PractitionerHematology/Oncology12/26/22Team MemberRelationshipSpecialty Start DateEnd Date Sergio Sneed MD PCP - GeneralFamily Vwxynhed40/17/ Jian Rodriguez MD PhysicianUrolog10/28/19 Keven Castaneda MD [address] [facility] [address] [place] [address] Okacijptdw19/30/22 Graeme Vazquez MD [address] [place] [address] PhysicianHematology/Oncology12/26/22 Margot So, RN [address] [place] [address] Specialty Care CoordinatorHematology/Oncology12/26/22 Patricia Conteh, RELAY MOTORMAN.SPUD GRADER [address] [place] [address] Nurse PractitionerHematology/Oncology12/26/22Team MemberRelationshipSpecialty Start DateEnd Date Marilu Roach CNP [address] [facility] [place] [address] PCP - GeneralNurse Practitioner05/18/24 Jian Rodriguez MD PhysicianUrolog10/28/19 Keven Castaneda MD [address] [facility] [address] [place] [address] Juqmmekrqd38/30/22 Graeme Vazquez MD [address] [place] [address] [place] [address] PhysicianHematology/Oncology12/26/22 Margot So, SUNIL [address] [place] [address] [place] [address] Specialty Care CoordinatorHematology/Oncology12/26/22 Patricia Conteh APRN.SPUD GRADER [address] [place] [address] [place] [address] Nurse PractitionerHematology/Oncology12/26/22Team MemberRelationshipSpecialty Start DateEnd Date Marilu Roach, RELAY MOTORMAN - SPUD GRADER [address] [place] [address] PCP - GeneralFamily Nurse Practitioner04/21/24Team MemberRelationshipSpecialty Start DateEnd Date Marilu Roach, RELAY MOTORMAN - SPUD GRADER [address] [place] [address] PCP - GeneralFamily Nurse Practitioner04/21/24Team MemberRelationshipSpecialty Start DateEnd Date Marilu Roach SPUD GRADER [address] [place] [address] PCP - GeneralNurse Practitioner05/18/24 Jian Rodriguez MD PhysicianUrolog10/28/19 Keven Castaneda MD [address] [facility] [address] [place] [address] Erkyrjngzn84/30/22 Graeme Vazquez MD [address] [place] [address] [place] [address] PhysicianHematology/Oncology12/26/22 Margot So, SUNIL [address] [place] [address] [place] [address] Specialty Care CoordinatorHematology/Oncology12/26/22 Patricia Conteh APRN.SPUD GRADER [address] [place] [address] [place] [address] Nurse PractitionerHematology/Oncology12/26/22Team MemberRelationshipSpecialty Start DateEnd Date Marilu Roach, RELAY MOTORMAN - SPUD GRADER [address] [place] [address] PCP - GeneralFamily Nurse Practitioner04/21/24Team MemberRelationshipSpecialty Start DateEnd Date Marilu Roach, RELAY MOTORMAN - SPUD GRADER [address] [place] [address] PCP - GeneralFamily Nurse Practitioner04/21/24Team MemberRelationshipSpecialty Start DateEnd Date Marilu Roach SPUD GRADER [address] [place] [address] PCP - GeneralNurse Practitioner05/18/24 Jian Rodriguez MD PhysicianUrolog/ Keven Castaneda MD [address] [facility] [address] [place] [address] Qtvogwconc49/30/22 Graeme Vazquez MD [address] [place] [address] [place] [address] PhysicianHematology/Oncology12/26/22 Patricia Conteh APRN.SPUD GRADER [address] [place] [address] [place] [address] Nurse PractitionerHematology/Oncology12/26/22Te MemberRelationshipSpecialty Start DateEnd Date MightMarilu, RELAY MOTORMAN-SPUD GRADER [address] [place] [facility] [place] [address] PCP - GeneralFamily Medicine04/20/25Team MemberRelationshipSpecialtyStart DateEnd Date MightMarilu, RELAY MOTORMAN-SPUD GRADER [address] [place] [facility] [place] [address] PCP - GeneralFamily Medicine04/20/25Team MemberRelationshipSpecialtyStart DateEnd Date MightMarilu, RELAY MOTORMAN-SPUD GRADER [address] [place] [facility] [place] [address] PCP - GeneralFamily Medicine04/20/25Team MemberRelationshipSpecialtyStart DateEnd Date Marilu Roach, RELAY MOTORMAN-SPUD GRADER [address] [place] [facility] [place] [address] PCP - GeneralFamily Medicine04/20/25Team MemberRelationshipSpecialtyStart DateEnd Date Might, Marilu Nelson, RELAY MOTORMAN-SPUD GRADER [address] [facility] [place] [address] PCP - GeneralFamily Medicine04/20/25 Inactive Administered Medications - up to 3 most recent administrations Administered Medications (un recognized section and content) Medication OrderMAR ActionAction DateDoseRateSite NaCl 0.9% 500 mL INTRAVENOUS, at 500 mL/hr, Administer over 1 Hours, ONCE, 1 dose, On Sat11/29/23 at 1330 New Bag/Syringe/Scmkfv2311/29/2023 1:42 PM RAO304 mL/hr pembrolizumab 200 mg in NaCl 0.9% 66 mL (KEYTRUDA) 200 mg, INTRAVENOUS, Administer over 30 Minutes, ONCE, 1 dose, On Sat11/29/23 at 1330, EXP: 11/29/2023 1930 RT Administer with 0.2 micron filter. New Bag/Syringe/Bbswec7811/29/2023 2:16 PM PUF099 mg Scheduled Active and Recently Administ ered [...] BE BASED ON THE PRIMARY CLINICAL RECORDS. [facility] [employer] [facility]. provides no warranty or guarantee of the accuracy or completeness of information in this document.
--- NOTE | 2025-09-16 08:30 | CA_ITS ---
Patient Name: YONG AUSTIN MR#: [id number] : 1940 Exam Date: 09/16/2025 Ordering Doctor: DR CASEY CASTANEDA M.D. ECHOCARDIOGRAM REPORT PROCEDURE: CA ECHO DOPPLER COMPLETE INDICATIONS: Chronic systolic heart failure, pacemaker, hypertension COMPARISON: None. DESCRIPTION: COMPLETE ECHOCARDIOGRAM Real-time transthoracic echocardiography with 2D, M-mode, spectral and color flow Doppler performed. QUALITY: Technical quality was good. LEFT VENTRICLE: Normal chamber size. Moderate to severe concentric left ventricular hypertrophy. Systolic function is severely reduced. Abnormal septal motion likely due to bundle branch block. Estimated left ventricular ejection fraction is 20%. LV EF: Severely reduced left ventricular ejection fraction, (<25%). DIASTOLIC: Grade III diastolic dysfunction. ATRIAL SEPTUM: Visually appears intact. LEFT ATRIUM: Severe dilatation. RIGHT ATRIUM: Moderate dilatation. RIGHT VENTRICLE: Normal chamber size. Normal systolic function. Pacer wire present. TRICUSPID VALVE: Normal mobility and thickness. No stenosis with moderate regurgitation. Doppler studies reveal moderately (45-60) elevated right sided pressures. RVSP 58 mmHg MITRAL VALVE: Normal mobility and thickness. No evidence of mitral valve stenosis. There is no mitral annular calcification. Moderate mitral regurgitation. AORTIC VALVE: Normal trileaflet appearance. Thickened aortic valve. Normal leaflet mobility. No evidence of aortic valve stenosis. Mild aortic regurgitation. AORTIC ROOT: Normal diameter and appearance, measuring 3.5 cm. Ascending aorta is normal in size, measuring 2.6 cm. PULMONIC VALVE: Normal thickness and mobility. No stenosis. Trivial regurgitation. PERICARDIUM: No evidence of pericardial effusion. IVC: IVC is dilated (2.4 cm), does not fully collapse. PLEURA: CONCLUSION: 1. Moderate to severe concentric left ventricular hypertrophy with severely reduced systolic function. Estimated LVEF is 20%. 2. Normal right ventricular size and systolic function. 3. Grade 3 diastolic dysfunction. 4. Moderate mitral and tricuspid regurgitation. 5. Mild aortic regurgitation. 6. Moderate to severe biatrial dilatation. 7. Moderately elevated right-sided pressures. RVSP is 58 mmHg. Adult Echocardiography Procedure Report Left Ventricle LVEDD (3.7 - 5.6 cm): 5.51 cm LVESD (2.2 - 4.0 cm): 4.74 cm LVIVS thickness (0.6 - 1.2 cm): 1.75 cm LVPW thickness (0.5 - 1.0 cm): 1.93 cm e': 0.07 m/s E - e': 10.78 LVOT Max Gradient: 2.05 mm[Hg] LVOT Area (cm2): 0.72 m/s Peak Velocity (LVOT): 0.72 m/s Mean Velocity (LVOT): 0.51 m/s LVOT Diameter 2.10 cm Left Atrium LA Volume Index (2D A2C): 69.20 ml/m2 Left Atrium Systolic Dimension: 5.52 cm Mitral Valve MV E to A Ratio: 2.37 Mitral Valve A-Wave Peak Velocity: 0.34 m/s Mitral Valve E-Wave Peak Velocity: 0.80 m/s Right Ventricle Aorta AO Root Diam: 3.46 cm Ascending Ao Diam: 2.65 cm Aortic Valve AoV Area (Peak Ken): 2.61 cm2, 2.61 cm2 AoV Area (VTI): 2.53 cm2, 2.53 cm2 Peak Velocity(Antegrade Flow): 0.95 m/s Peak Gradient(Antegrade Flow): 3.62 mm[Hg] Mean Velocity(Antegrade Flow): 0.60 m/s Mean Gradient(Antegrade Flow): 1.76 mm[Hg] Velocity Time Integral: 17.59 cm Tricuspid Valve Peak Velocity (Regurgitant Flow): 3.14 m/s, 3.10 m/s, 3.28 m/s Pulmonic Valve Mean Gradient: 1.93 mm[Hg] Mean Velocity: 0.62 m/s Peak Velocity: 1.13 m/s Peak Gradient: 5.10 mm[Hg] Right Atrium Right Atrium Systolic Pressure: 58.18 ml, 58.18 ml Dictated by: Casey Castaneda M.D. on 09/16/2025 at 21:01 Approved by: Casey Castaneda M.D. on 09/16/2025 at 21:07
== END 2025-09-16 08:12 | disposition home or self-care (01) ==
LOC: CARD 08:12
PROVIDERS: Visit Provider Internal Medicine Interventional Cardiology
DX: I50.22 Chronic systolic (congestive) heart failure (principal)
CPT/HCPCS: 93306; 93356

== ENCOUNTER 2025-09-21 07:33 | Outpatient (OUT) | payer MEDICARE, SELFPAY ==
--- OUTSIDE RECORDS SUMMARY | 2025-09-21 07:39 | XMS_ITS | CCD ---
Author Organization [facility] Care Team Providers Care Head Swamper Name Role Phone PHYSICIAN, DEFAULT Unavailable Unavailable PHYSICIAN, DEFAULT Unavailable Unavailable PHYSICIAN, DEFAULT Unavailable Unavailable PHYSICIAN, DEFAULT Unavailable Unavailable Sergio Sneed MD Primary Care Provider Jian Rodriguez MD Unavailable Unavailable Mike BARBER, Lauren Barros Unavailable [phone] Soren Perea MD Unavailable Corazon Maxwell PA-C Unavailable Augusto Sauceda Unavailable Shawn Nelson Unavailable Sergio Sneed MD Primary Care Provider Jian Rodriguez MD Unavailable Unavailable Brit FOUNTAIN, Soren Unavailable [phone] Keven Castaneda MD Unavailable Sergio Sneed Primary Care Physician Sergio Sneed MD Primary Care Provider Graeme Vazquez MD Unavailable Saray BARBER, Margot Unavailable [phone] Patricia Conteh APRN.CNP Unavailable PAY ., [...] Primary Care Unavailable Jian Rodriguez MD Unavailable [phone] Jian RODRIGUEZ Attending Unavailable Jian RODRIGUEZ Attending Unavailable Saray RN, Margot Unavailable [phone] Sergio Sneed MD Primary Care Provider [phone] Unavailable Primary Care Provider Unavailabl e Might Marilu CULVER Primary Care Provider Sergio Sneed MD Primary Care Provider [phone] Might INSURANCE VERIFICATION REP - FICTION AND NONFICTION WRITER PROSE, Marilu Nelson Primary Care Provider MIGHT, MARILU [...] MIGHT, MARILU W Primary Care Unavailable Might INSURANCE VERIFICATION REP-FICTION AND NONFICTION WRITER PROSE, Marilu Nelson Primary Care Provider [phone] SERGIO SNEED Primary Care Unavailable CARDIOLOG[facility], [facility] Consulting Unavailable KENNEDY, RD U Admitting Unavailable KENNEDY, RD U Attending Unavailable DIVISION OF INFECTIOUS DISEASE, [facility] Consulting Unavailable [place], CARDIOTHORACIC SURGEONS FOR [facility] Unavailable ONLY), IP WOUND CARE SERVICES (INPATIENT [...] [ADHESIVE TAPE (ROSINS)]Propensity to adverse reactions to -[id number]: See CommentsHolzer [facility] Center – [facility] (2 sources)Adhesive Tape; Translations: [Tape]Allergy to substanceBlister of skin without infection (disorder)[facility] (17 sources)DesonideDrug Wfsdawd53-98-9512Hwhqlbr, Other (See Comments)[facility] (1 source)No Known Medication Allergies; Translations: [No Known Medication Allergies]Propensity to adverse reactions (disorder)[facility] (4 sources)Desonide; Translations: [DESONIDE]Drug Fykdfav33-71-5865[facility]wqcbhdT[facility] (10 sources)Adhesive agent; Translations: [ADHESIVE]Propensity to adverse reactions to avma95-86-1922SgodLxvFixagf Health SystemNEGATED: Highlighted row has been ruled out! (1 source)Drug allergyExecutive [facility]rology of [facility] Medications Current Medications MedicationDrug Class(es)DatesSig (Normalized)Sig (Original)amLODIPine 10 mg oral tablet (20 sources)Dihydropyridine Calcium Channel BlockerStart: 24-67-2476sjtu 0.5 tablet by mouth in the morningamLODIPine (NORVASC) 10 mg tablet Take 0.5 tablets (5 mg total) by mouth in the morning. 5ActiveStart: 05-05-2018 End: 59-74-9939gatg 1 tablet by mouth once daily at bedtimeamLODIPine (NORVASC) 10 mg tablet Take 10 mg by mouth daily at bedtime. 0 05/05/2018 05/03/2022 Disc ontinuedamLODIPine Besylate ActiveComment on above:Take 10 mg by mouth daily at bedtime. Take 10 mg by mouth once daily.aspirin 81 mg chewable tablet (20 sources)Platelet Aggregation Inhibitor, Nonsteroidal Anti-inflammatory Drug Start: 70-37-6095cfrtcks chewable tablet 324 mgaspirin 81 mg chewable tablet Chew 1 tablet (81 mg total) and swallow in the morning. Activetake 1 tablet by mouth once dailyaspirin, enteric coated (ASPIRIN, ENTERIC COATED) 81 mg EC tablet Take 81 mg by mouth once daily. ActiveBayer Aspirin ActiveComment on above:Take 81 mg by mouth once daily.atorvastatin 10 mg oral tablet (20 sources)HMG-CoA Reductase InhibitorStart: 51-28-8266bwua 1 tablet by mouth once dailyatorvastatin (LIPITOR) 10 mg tablet Indications: Other hyperlipidemia TAKE ONE TABLET BY MOUTH DAILY 90 tablet 1 03/05/2019 ActiveStart: 06-13-2018 take 1 tablet by mouth once dailyatorvastatin (LIPITOR) 80 mg tablet Take 80 mg by mouth once daily. 06/13/2018 ActiveLipitor ActiveComment on above:Take 10 mg by mouth once daily. balsalazide disodium 750 mg oral capsule (20 sources)AminosalicylateStart: 84-77-4005mssa 3 capsules by mouth three times dailybalsalazide (COLAZAL) 750 MG capsule Indications: Ulcerative pancolitis (HCC) Take 3 capsules by mouth 3 times daily 90 capsule 05/14/2024 ActiveStart: 90-95-8321ekby 1 capsule by mouth in the morning, then take 1 capsule by mouth three times dailybalsalazide (COLAZAL) 750 mg capsule Take 1 capsule (750 mg total) by mouth in the morning. Take one three times daily . 06/25/2017 Active Start: 06-25-2017 End: 21-63-1372gsys 3 capsules by mouth once dailybalsalazide (COLAZAL) 750 mg capsule Take 2,250 mg by mouth once daily. 06/25/2017 12/24/2023 Discontinued (Discontinued by Patient)Start: 33-78-0014qrol 2 capsules by mouth once daily balsalazide (COLAZAL) 750 mg capsule Take 1,500 mg by mouth once daily. 0 06/25/2017 ActiveStart: 32-87-7292owen 2 capsules by mouth three times daily [...] (8 sources)alpha-Adrenergic Cayla, beta-Adrenergic BlockerStart: 02-28-2022 End: 49-64-0089pnvsatrlju (COREG) 3.125 mg tabletCarvedilol ActiveCentrum (4 sources)Centrum ActiveCentrum Silver (1 source)Start: 42-31-1370Jlpgiqf Silver Oral, Daily, Refill(s) 0 Start Date: 08/16/21 Status: Orderedcephalexin 500 mg oral capsule (6 sources)Cephalosporin AntibacterialStart: 04-23-2025 End: 79-27-5567qdsw 1 capsule by mouth three times dailyCEPHalexin (KEFLEX) 500 mg capsule Take 1 capsule (500 mg total) by mouth 3 (three) times a day for12 days. 36 capsule 04/23/2025 05/05/2025 ActiveStart: 01-04-2025 End: 12-47-2397ilxj 1 capsule by mouth four times dailycephALEXin [...] tablet (10 sources)P2Y12 Platelet InhibitorStart: 04-21-2024 End: 18-73-6066jrfmwkyzdmc (PLAVIX) 75 MG tablet Take 1 tablet [...] Food Allergenic Extract, Non-Standardized Plant Allergenic ExtractStart: 01-64-2704Bxvgxtepg Start Date: 11/29/21 Status: Ordered End: 17-57-1628gpul 1 capsule by mouth twice dailyCranberry 500 mg cap Take 500 mg by mouth twice daily. 0 11/12/2022 DiscontinuedCranberry Activetake 1 capsule by mouth twice dailyCranberry 500 mg cap Take 500 mg by mouth twice daily. 0 ActiveComment on above:Take 500 mg by mouth twice daily. enteric contrast (will be provided with radiology test) (20 sources)Start: 28-72-9911jjbwljs contrast (will be provided with radiology test) [...] guidelines 1 Each 10/23/2024 ActiveStart: 08-21-2024 End: 95-59-4069xlwgvcr contrast (will be provided with radiology test) Indications: Malignant neoplasm of overlapping sites of bladder (HCC) For CT CHESTABD/PEL W IVCON Routine order Administer, As Directed One Time Only, via Oral, Rectal, both Oral and Rectal, Enteric Tube, Stoma or Indwelling Catheter, Enteric Contrast as designated per enteric contrast guidelines 1 Each 08/21/2024 10/23/2024 Discontinued (Course of therapy completed)Start: 76-65-9742ccbqtjy contrast (will be provided with radiology test) Indications: Malignant neoplasm of overlapping sites of bladder (HCC) For CT CHESTABD/PEL W IVCON Routine order Administer, As Directed One Time Only, via Oral, Rectal, both Oral and Rectal, Enteric Tube, Stoma or Indwelling Catheter, Enteric Contrast as designated per enteric contrast guidelines 1 Each 08/21/2024 ActiveStart: 05-18-2024 End: 83-55-3579myaebnf contrast (will be provided with radiology test) [...] 05/18/2024 10/23/2024 Discontinued (Course of therapy completed)Start: 42-48-0942vccobwz contrast (will be provided with radiology test) [...] enteric contrast guidelines 1 Each 05/18/2024 ActiveStart: 73-62-5567rgcxgfx contrast (will be provided with radiology test) [...] 1 Each 0 05/18/2024 ActiveStart: 12-20-2023 End: 52-84-4145gaehsnu contrast (will be provided with radiology test) For CT CHESTABD/PEL W IVCON Routine order Administer, As Directed One Time Only, via Oral, Rectal, both Oral and Rectal, Enteric Tube, Stoma orIndwelling Catheter, Enteric Contrast as designated per enteric contrast guidelines 1 Each 0 024 12/21/2023 ExpiredStart: 07-18-2023 End: 21-11-6325jqqzitv contrast (will be provided with radiology test) For CT CHESTABD/PEL W IVCON Routine order Administer, As Directed One Time Only, via Oral, Rectal, both Oral and Rectal, Enteric Tube, Stoma orIndwelling Catheter, Enteric Contrast as designated per enteric contrast guidelines 1 Each 0 023 07/19/2023 ExpiredStart: 05-16-2023 End: 62-55-7752qgwziqj contrast (will be provided with radiology test) For CT CHESTABD/PEL W IVCON Routine order Administer, As Directed One Time Only, via Oral, Rectal, both Oral and Rectal, Enteric Tube, Stoma orIndwelling Catheter, Enteric Contrast as designated per enteric contrast guidelines 1 Each 05/16/2023 06/28/2023 Discontinued (Discontinued by Patient)Start: 05-16-2023 End: 30-73-3040dxqxdbh contrast (will be provided with radiology test) For CT CHESTABD/PEL W IVCON Routine order Administer, As Directed One Time Only, via Oral, Rectal, both Oral and Rectal, Enteric Tube, Stoma orIndwelling Catheter, Enteric Contrast as designated per enteric contrast guidelines 1 Each 0 023 06/28/2023 Discontinued (Discontinued by Patient)Start: 60-48-5987mcajxdq contrast (will be provided with radiology test) For CT CHESTABD/PEL W IVCON Routine order Administer, As Directed One Time Only, via Oral, Rectal, both Oral and Rectal, Enteric Tube, Stoma orIndwelling Catheter, Enteric Contrast as designated per enteric contrast guidelines 1 Each 0 05/16/2023 ActiveStart: 08-06-2018 End: 65-96-9096tcwdpnu contrast (will be provided with radiology test) [...] 20 mg oral tablet (20 sources)Loop DiureticStart: 49-99-0439zwgc 1 tablet by mouth once daily furosemide [...] hydrochloride 1500 mg oral tablet (5 sources)Start: 33-53-4687xjyw 1500 mg by mouth once dailyglucosamine 1,500 mg, Oral, Daily, Refills(s) 0 Start Date: 07/13/19 Status: OrderedGlucosamine KrmnapSnknlcjulfm-Iqkaeasoy-Chh C-Mn (GLUCOSAMINE 1500 COMPLEX) CAPS (5 sources)Etuxhjghins-Zopveewfz-Xre C-Mn (GLUCOSAMINE 1500 COMPLEX) CAPS Take by mouth FkoghaMnybwxtdogs-Wmfbbobxj-Wfn C-Mn (GLUCOSAMINE 1500 COMPLEX) CAPS Take by mouth 0 Gpidbp66 hr guaiFENesin 600 mg extended release oral tablet (5 sources)Start: 04-23-2025 End: 95-76-6860jugx 1 tablet by mouth onceguaiFENesin (MUCINEX) 600 mg tablet extended release 12hr Take 1 tablet (600 mg total) by mouth every 12 (twelve) hours for 14 days. 28 tablet 04/23/2025 05/07/2025 ActivehydrALAZINE hydrochloride 25 mg oral tablet (20 sources)Arteriolar VasodilatorStart: 72-81-2861ftym 1 tablet by mouth three times dailyhydrALAZINE (APRESOLINE) 25 mg tablet Take 25 mg by mouth three times a day. 02/21/2022 ActiveStart: 45-66-8006jnroQIIJZDW (APRESOLINE) 50 mg tablet Take 25 mg by mouth three times a day. 0 02/21/2022 ActiveStart: 69-09-2322pmdp 1 tablet by mouth three times dailyhydrALAZINE (APRESOLINE) 50 mg tablet Take 50 mg by mouth three times daily. 0 02/21/2022 ActiveStart: 23-11-2371wtsv 1 tablet by mouth four times dailyhydrALAZINE 10 mg Tab 10 mg = 1 tab(s), Oral, QID Start Date: 08/16/21 Status: OrderedhydrALAZINE HCl Active End: 43-90-2177bpsj 2 tablets by mouth three times dailyhydrALAZINE [...] 76 % injection 75 mL (1 source)Start: 17-14-8958pvaoppawo (ISOVUE-370) 76 % injection 75 mLIron (1 source)take 1 tablet by mouth three times weeklyIron (Ferrous Sulfate) 325 (65 Fe) MG 1 tablet Orally Three times a Week Aobwcq21 hr isosorbide mononitrate 30 mg extended release oral tablet (20 sources)Nitrate VasodilatorStart: 04-09-2024 End: 34-74-4134tqsnmjjnll mononitrate (IMDUR) 30 MG extended release tablet Take 1 tablet by mouth 04/09/2024 04/04/2025 ActiveComment on above:Take 30 mg by mouth once daily.isosorbide dinitrate 20 mg oral tablet (20 sources)Nitrate VasodilatorStart: 21-35-3108etbm 1 tablet by mouth three times dailyisosorbide dinitrate (ISORDIL) 20 mg tablet Take 20 mg by mouth three times a day. 08/15/2023 ActiveStart: 64-04-6934gcco 1 tablet by mouth twice dailyisosorbide dinitrate 10 mg Tab 10 mg = 1 tab(s), Oral, BID Start Date: 08/16/21 Status: Ordered End: 02-04-9413wruekewgzc dinitrate (ISORDIL) 10 mg tablet Take 20 mg by mouth three times daily. 0 12/31/2022 DiscontinuedIsosorbide Dinitrate ActiveComment on above:Take 20 mg by mouth three times daily.Take 20 mg by mouth three times a day.iv contrast (will be provided with radiology test) (20 sources)Start: 82-52-9854py contrast (will be provided with radiology test) [...] link. 1 Each 10/23/2024 ActiveStart: 08-21-2024 End: 32-27-7102mg contrast (will be provided with radiology test) [...] 10/23/2024 D iscontinued (Course of therapy completed)Start: 31-54-8510gl contrast (will be provided with radiology test) [...] link. 1 Each 08/21/2024 ActiveStart: 05-18-2024 End: 54-97-1328cf contrast (will be provided with radiology test) [...] 05/18/2024 10/23/2024 Discontinued (Course of therapy completed)Start: 94-32-4597jc contrast (will be provided with radiology test) [...] administration guidelines link. 1 Each 05/18/2024 ActiveStart: 00-93-0707tt contrast (will be provided with radiology test) [...] 1 Each 0 05/18/2024 ActiveStart: 12-20-2023 End: 51-38-9434yh contrast (will be provided with radiology test) [...] Each 0 12/20/2023 12/21/2023 ExpiredStart: 07-18-2023 End: 69-94-9671fa contrast (will be provided with radiology test) [...] Each 0 07/18/2023 07/19/2023 ExpiredStart: 05-16-2023 End: 17-35-5432yy contrast (will be provided with radiology test) [...] 12/24/2023 Discontinued (Discontinued by Patient)Start: 05-16-2023 End: 91-34-8511kg contrast (will be provided with radiology test) [...] 0 05/16/2023 12/24/2023 Discontinued (Discontinued by Patient)Start: 14-45-4095wc contrast (will be provided with radiology test) [...] link.1 Each 0 05/16/2023 ActiveStart: 08-06-2018 End: 06-29-6574yi contrast (will be provided with radiology test) [...] the CT contrast administration guidelines link.lactobacillus acidophilus [id number] unt oral capsule (6 sources)lactobacillus acidophilus 100 mg (1 billion cell) cap(s) Take by mouth. Activelevothyroxine sodium 0.025 mg oral tablet (20 sources)l-ThyroxineStart: 79-15-4621jdmt 1 tablet by mouth once daily in [...] oral tablet (20 sources)Angiotensin 2 Receptor BlockerStart: 19-62-6993msborecy (COZAAR) 50 mg tablet Take 50 mg by mouth. 0 07/13/2019 ActiveStart: 05-15-2018 End: 75-53-2967slbg 1 tablet by mouth twice dailylosartan (COZAAR) [...] oxide 400 mg oral tablet (13 sources)Start: 14-92-1791cbsh 1 tablet by mouth in the morningmagnesium oxide (MAGOX) 400 mg tablet Take 1 tablet (400 mg total) by mouth in the morning. 30 tablet 2 2025 Activemagnesium oxide 400 mg magnesium tab Take 400 mg by mouth. Iliggb25 hr metoprolol succinate 25 mg extended release oral tablet (20 sources)beta-Adrenergic BlockerStart: 08-16-2021 End: 11-44-2905puzk 1 mg by mouth once dailymetoprolol 25 mg ER Tab mg tab(s), Oral, Daily Start Date: 08/16/21 Status: Orderedtake 2 tablets by mouth every twenty-four hours in the morningmetoprolol succinate XL (TOPROL XL) 25 mg 24 hr tablet Take 2 tablets (50 mg total) by mouth in themorning. Active End: 12-17-5250gjpq 1 tablet by mouth twice dailymetoprolol tartrate, [...] disintegrating oral tablet (20 sources)Serotonin-3 Receptor AntagonistStart: 15-68-4746inrnvqoqgth orally disintegrating (ZOFRAN ODT) 4 mg disintegrating tablet 11/18/2023 ActiveStart: 11-21-2021 End: 45-96-6889jwyc 1 tablet by mouth every eight hours as neededondansetron (ZOFRAN) 8 mg tablet Take 1 tablet by mouth every 8 hours as needed for nausea/vomiting. 90 tablet 2 11/21/2021 05/03/2022 DiscontinuedComment on above: Take 1 tablet by mouth every 8 hours as needed for nausea/vomiting.pantoprazole 40 mg delayed release oral tablet (20 sources)Proton Pump InhibitorStart: 10-84-7159fdksrhzekjys DR (PROTONIX) 40 mg tablet 08/15/2023 Active4 ml pembrolizumab 25 mg/ml injection (20 sources)Programmed Receptor-1 Blocking Antibodypembrolizumab (KEYTRUDA) 25 mg/mL injection Inject intravenously. Activepembrolizumab (KEYTRUDA) 100 MG/4ML SOLN Infuse intravenously ActiveKeytruda ActiveComment on above:Inject intravenously.predniSONE 20 mg oral tablet (20 sources)Start: 12-20-2023 End: 12-13-7998jmig 1 tablet by mouth once dailypredniSONE (DELTASONE) 20 mg tablet Take 1 tablet by mouth once daily. Prednisone 20 mg for 5 days then 10 mg daily. 60 tablet 03/30/2024 ActiveStart: 08-29-2023 End: 55-99-2387fojc 4 tablets by mouth once dailypredniSONE (DELTASONE) 10 mg tablet Take 4 tablets by mouth once daily. 120 tablet 0 08/29/2023 09/28/2023 ActiveStart: 01-23-2023 End: 74-89-4280nmxl 1 tablet by mouth once dailypredniSONE (DELTASONE) [...] mg oral tablet (12 sources)PhenothiazineStart: 11-21-2021 End: 30-96-3262kopn 1 tablet by mouth every six hours as neededprochlorperazine (COMPAZINE) 10 mg tablet Take 1 tablet by mouth every 6 hours as needed. 100 tablet 2 11/21/2021 05/03/2022 DiscontinuedComment on above:Take 1 tablet by mouth every 6 hours as needed.tamsulosin hydrochloride 0.4 mg oral capsule (20 sources)alpha-Adrenergic BlockerStart: 05-23-2022 End: 76-94-4027ndeu 1 capsule by mouth once dailytamsulosin (FLOMAX) 0.4 mg Take 1 capsule by mouth once daily. 30 capsule 5 05/31/2023 ActiveStart: 09-30-2019 End: 19-09-4459nrctuitzza (FLOMAX) 0.4 mg Take 1 capsule by mouth once daily 30 minutes after the same meal 30 capsule 2 11/01/2021 ActiveStart: 05-04-2018 End: 21-20-2689wsol 2 capsules by mouth once dailytamsulosin ER [...] (Original)acetaminophen 325 mg oral tablet (16 sources)Start: 88-94-8314osds 2 tablets by mouth every four hours as needed acetaminophen (TYLENOL) 325 mg tablet Take 2 tablets by mouth every 4 hours as needed for pain. 30 tablet 0 05/23/2022 ActiveStart: 09-30-2019 End: 51-09-0839jvbm 2 tablets by mouth every four hours as neededacetaminophen (TYLENOL) 325 mg tablet Take 2 tablets by mouth every 4 hours as needed for Pain. 30 tablet 0 09/30/2019 05/03/2022 DiscontinuedComment on above:Take 2 tablets by mouth every 4 hours as needed for Pain.ciprofloxacin 250 mg oral tablet (1 source)Quinolone AntimicrobialStart: 75-76-5735clqa 1 tablet by mouth once dailyCipro 250 mg Tab 250 mg = 1 tab(s), Oral, Daily, Take 1 tablet the day before the procedure and 1 tablet after the procedure, # 2 tab(s), Refills(s) 0, Pharmacy: [facility] [id number], 167, cm, 12/05/22 9:25:00 EST, Height/Length Dosing, 84, kg, 12/05/22 9:25:00 ES... Start Date: 12/05/22 Status: Ordereddocusate sodium 100 mg oral capsule (5 sources)Start: 11-12-2022 End: 53-39-9150kwet 1 capsule by mouth twice dailydocusate sodium (COLACE) 100 mg capsule Take 1 capsule by mouth twice daily for 14 days. Stop taking if you develop diarrhea or loose stools 28 capsule 0 11/12/2022 11/26/2022 Start: 66-98-4268pqgg 1 capsule by mouth twice dailydocusate sodium (COLACE) 100 mg capsule Take 1 capsule by mouth twice daily. 10 capsule 0 05/23/2022 Active Comment on above:Take 1 capsule by mouth twice daily.Take 1 capsule by mouth twice daily for 14 days. Stop taking if you develop diarrhea or loose stools empagliflozin 10 mg oral tablet (20 sources)Sodium-Glucose Cotransporter 2 Inhibitor End: 36-44-4136gjml 1 tablet by mouth once dailyempagliflozin (JARDIANCE) 10 MG tablet Take 1 tablet every day by oral route for 90 days. 09/10/2024 Discontinued (LIST CLEANUP)Comment on above:Take 10 mg by mouth daily with breakfast.enalapril maleate 5 mg oral tablet (9 sources)Angiotensin Converting Enzyme Inhibitor End: 15-28-9586ohgn 1 tablet by mouth once dailyenalapril (VASOTEC) 5 mg tablet Take 5 mg by mouth once daily. 04/04/2023 Discontinued (Changing Therapy/Dosage Form)Comment on above:Take 5 mg by mouth once daily.Fish Oil-Walnut-3 Fatty Acids (FISH OIL) 300-1,000 mg cap (13 sources)take 1 capsule by mouth once dailyFish Oil-Walnut-3 Fatty Acids (FISH OIL) 300-1,000 mg cap Take 2 g by mouth once daily. 0 ActiveComment on above: Take 2 g by mouth once daily. hydroCHLOROthiazide 25 mg / triamterene 37.5 mg oral tablet (1 source)Potassium-sparing Diuretic, Thiazide DiureticStart: 05-14-2018 End: 66-50-6448rwit 1 tablet by mouth once dailytriamterene-hydrochlorothiazide (MAXZIDE-25) 37.5-25 mg per tablet Take 1 tablet by mouth once daily. 0 05/14/2018 11/01/2021 DiscontinuedComment on above:Take 1 tablet by mouth once daily. Methylcellulose (1 source) End: 92-11-8137bhhbneclhuaujqb (CITRUCEL ORAL) Take 1 Tablespoonful by mouth once daily. 0 11/21/2021 DiscontinuedComment on above:Take 1 Tablespoonful by mouth once daily. omega-3 fatty acids/fish oil (FISH OIL-OMEGA-3 FATTY ACIDS) 300-1,000 mg cap (4 sources) End: 36-01-4477thzc 1 capsule by mouth once dailyomega-3 fatty [...] release oral capsule (20 sources)Proton Pump InhibitorStart: 74-50-2849afgr 20 mg by mouth once daily omeprazole 20 mg, Oral, Daily, Refills(s) 0 Start Date: 07/13/19 Status: Ordered Start: 06-27-2018 End: 22-62-0572kyst 1 capsule by mouth twice dailyomeprazole (PRILOSEC) [...] mg oral tablet (3 sources)Cholinergic Muscarinic AntagonistStart: 64-40-3016vsgs 1 tablet by mouth every eight hours as neededoxybutynin (DITROPAN) 5 mg tablet Take 1 tablet by mouth three times daily as needed (bladder spasms). 12 tablet 0 05/23/2022 ActiveComment on above:Take 1 tablet by mouth three times daily as needed (bladder spasms).oxyCODONE hydrochloride 5 mg oral tablet (7 sources)Opioid AgonistStart: 91-62-9988yids 1 tablet by mouth every eight hours as needed for painoxyCODONE IR (ROXICODONE) 5 mg immediate release tablet Indications: Postoperative pain Take 1 tablet by mouth every 8 hours as needed for pain. 8 tablet 0 11/12/2022 ActiveStart: 60-92-4438qdst 1 tablet by mouth every eight hours as needed for painoxyCODONE IR (ROXICODONE) 5 mg immediate release tablet Indications: Urothelial carcinoma (HCC) Take 1 tablet by mouth every 8 hours as needed for pain. 4 tablet 0 05/23/2022 ActiveComment on above: Take 1 tablet by mouth every 8 hours as needed for pain.potassium chloride 10 meq extended release oral capsule (20 sources)Start: 37-51-9852mqazwoppk chloride SR (MICRO-K) 10 mEq CR capsule take 1 tablet by mouth twice dailypotassium chloride (K-TAB) 10 mEq tablet Take 10 mEq by mouth twice daily. ActivePotassium Chloride ActiveComment on above: Take 10 mEq by mouth twice daily. Problems Active Problems Problem ClassificationProblemDateDocumented DateEpisodic/ChronicAcute and unspecified renal failure (1 source)Chronic renal -23-0288YexwbhlWjkhfqid of urinary tract (2 sources)History of calculus of kidney; Translations: [Personal history of urinary calculi]Onset: 355355-28-2651XrwyxejaFstrag of bladder (20 sources)Malignant tumor of urinary bladder; Translations: [Malignant neoplasm of bladder, unspecified]Onset: [id number] of kidney and renal pelvis (20 sources)Malignant tumor of kidney; Translations: [Malignant neoplasm of unspecified kidney, except renal pelvis]Onset: 07-29-2019 Resolved: [id number] of other urinary organs (20 sources)Malignant tumor of ureter; 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]Onset: 39-43-7575DhqimxrGiyhfu; other and unspecified primary (1 source)History of bladder ictxcntc84-89-3122EpnyesnsRauwnkd dysrhythmias (7 sources)Atrial flutter; Translations: [Unspecified atrial flutter]Onset: 04-22-2024 Resolved: 363867-14-9900YqyavxsNqkohfq kidney disease (20 sources)Chronic kidney disease stage 3; Translations: [Stage 3 chronic kidney disease]Onset: 563082-43-5986NtqlzjzXkympfb kidney disease (2 sources)Chronic kidney disease; Translations: [Chronic kidney disease, stage 3b]Onset: 69-61-6513Eneeeve ulcer of skin (2 sources)Skin ulcer; Translations: [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 sites with fat layer exposed]Onset: 540057-52-7562QydgoiuKoqbqloftq disorders (12 sources)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; Translations: [Other atrioventricular block]Onset: hronic Congestive heart failure; nonhypertensive (9 sources)Acute systolic (congestive) heart failure; Translations: [Chronic systolic heart failure]Onset: 244655-38-2632ZtpmzxyKtfumhoy atherosclerosis and other heart disease (2 sources)Atherosclerotic heart disease of [place] coronary artery without angina pectoris; Translations: [Atherosclerotic heart disease of [place] coronary artery without angina pectoris]Onset: 83-91-2547WeoatgzZzfobtrp of mouth; excluding dental (1 source)Xerostomia; Translations: [Dry mouth, unspecified]96-02-6402Zcffmrxt Disorders of lipid metabolism (17 sources)Pure hypercholesterolemia, unspecified; Translations: [Hyperlipidemia, unspecified]Onset: 057705-77-2975PtjgjstMmutitkztc disorders (20 sources)Gastroesophageal reflux disease without esophagitis; Translations: [Gastro-esophageal reflux disease without esophagitis]Onset: 08-10-2019 27-65-3678XhiaxpiLatqxpapn hypertension (20 sources)Hypertensive disorder; Translations: [Essential (primary) hypertension]Onset: 150952-29-4431GxlfibfCxzmi valve disorders (1 source)Nonrheumatic mitral (valve) insufficiency; Translations: [NONRHEUMATIC MITRAL INSUFFICIENCY]Onset: 99-77-9618VuyotprAxgfdgvabgd of prostate (3 sources)Benign prostatic hypertrophy with outflow obstruction; Translations: [Benign prostatic hyperplasia with lower urinary tract symptoms]Onset: 38-35-0998SitmzmaRlujywosgrdc with complications and secondary hypertension (20 sources)Hypertensive heart failure; Translations: [Hypertensive heart disease with heart failure]Onset: 174276-90-9429HfzwwhvKxkxvxd and fatigue (3 sources)Malaise and fatigue; Translations: [Other malaise]80-78-0298Pvdjhcga Nutritional deficiencies (1 source)Vitamin D deficiency, unspecified; Translations: [VITAMIN D DEFICIENCY UNSPECIFIED]Onset: 07-26-3481DyovmlwPglw wounds of head; neck; and trunk (12 sources)Open wound of left chest wall; Translations: [Unspecified open wound of left front wall of thorax without penetration into thoracic cavity, initial encounter]Onset: 240635-75-0182VkuczfyaDtuumfhnxmzslf (1 source)Unspecified osteoarthritis, unspecified site; Translations: [UNSPECIFIED OSTEOARTHRITIS UNS SITE]Onset: 26-47-9485IwaxnmzOcesu aftercare (1 source)Other wrapper rewinder (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; Translations: [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 DRUG THERAPY]Onset: 06-42-5865ZhxfctvoSpjvj aftercare (1 source)[facility] (current) use of aspirin; Translations: [JAIL CURRENT USE OF ASPIRIN]Onset: 37-69-8805LmzjouhkCxdph diseases of kidney and ureters (1 source)Urinary tract obstruction; Translations: [Other obstructive and reflux uropathy]Onset: 58-73-9284BrsraxmaHjkft gastrointestinal disorders (1 source)Diarrhea, unspecifiedEpisodicOther injuries and conditions due to external causes (10 sources)Open wound; Translations: [Other injury of unspecified body region, initial encounter]Onset: 536211-96-1526GkdmirntHiylh injuries and conditions due to external causes (7 sources)Surgical wound finding; Translations: [Other injury of unspecified body region, initial encounter]Onset: 956234-65-7350OznraiwsQdwlt injuries and conditions due to external causes (2 sources)Other injury of unspecified body region, initial encounter; Translations: [Other injury of unspecified body region, initial encounter]Onset: 52-78-7612OrytbyjwLsmaz lower respiratory disease (1 source)Shortness of breath; Translations: [SHORTNESS OF BREATH]Onset: 93-99-4066DkemaxifUwlrb lower respiratory disease (1 source)Shortness of breathOnset: 40-74-2737OmwujimcSeiel nervous system disorders (4 sources)Tremor, unspecified; Translations: [TREMOR UNSPECIFIED]Onset: 68-35-5123KxwbtvqnCobhs non-epithelial cancer of skin (1 source)Personal history of other malignant neoplasm of skin; Translations: [PERSONAL HX OTH MALIG NEOPLASMSKIN]Onset: 12-41-0268GcslthctBdvaw nutritional; endocrine; and metabolic disorders (20 sources)Obese class I; Translations: [Obesity, unspecified]Onset: 03-27-2022 31-09-9012HasnfsiFkprn nutritional; endocrine; and metabolic disorders (2 sources)Abnormal weight loss; Translations: [Abnormal weight loss]12-20-2023 EpisodicOther screening for suspected conditions (not mental disorders or infectious disease) (1 source)Imaging result abnormal; Translations: [Abnormal findings on diagnostic imaging of other specified body structures]80-19-5937ZelgtriXjdwdvbd enteritis and ulcerative colitis (20 sources)Ulcerative pancolitis; 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]Onset: 08-11-2019 Resolved: 609330-91-5453ZuyxyknQliqdlfe codes; unclassified (1 source)Acquired absence of kidney; Translations: [ACQUIRED ABSENCE OF KIDNEY] Onset: 44-48-4495IhsievfiDpioktov codes; unclassified (1 source)Acquired absence of other genital organ(s); Translations: [ACQUIRED ABSENCE OTH GENITAL ORGANS]Onset: 65-14-8807MhbqgzrpCpfvypac codes; unclassified (1 source)Other general symptoms and signs; Translations: [Other general symptoms]37-04-6489XiuccfgbNjknnhgov and history of mental health and substance abuse codes (1 source)Personal history of nicotine dependence; Translations: [PERSONAL HISTORY OF NICOTINE DEPEND]Onset: 38-89-8224KgarzbjuVznm and subcutaneous tissue infections (2 sources)Abscess; Translations: [Cutaneous abscess, unspecified]Onset: 868813-20-2763IfkoknqwAkuxdnu disorders (6 sources)Congenital hypothyroidism; 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]Onset: 998585-77-4757MclbhhoHenlinbldnys (1 source)Drug therapy dugymxq39-76-3299Rlkmerjxeigj (1 source)CHRN KIDNEY DISEASE STG 3 UNSP; Translations: [CHRN KIDNEY DISEASE STG 3 UNSP]Onset: 44-85-9340Dlkuofivxzfy (3 sources)Pacemaker Problem; Translations: [Pacemaker Problem]Onset: 04-19-2025 Unclassified (1 source)Juan Joseqamar Cunha coming for leadless pacemaker by Dr Nadine Celis coming by ground - stableOnset: 36-87-9922Wcpwnneqpaaz (1 source)Wound CheckOnset: 04-63-9227Fdagzge tract infections (1 source)Acute cystitis; Translations: [Acute cystitis without hematuria] Episodic Past or Other Problems Problem ClassificationProblemDateDocumented DateEpisodic/ChronicAcute and unspecified renal failure (20 sources)Acute injury of kidney; Translations: [Acute kidney failure, unspecified]Onset: 563548-73-8221QptujjmaPhavbr of bladder (1 source)Personal history of malignant neoplasm of bladder; Translations: [PERSONAL HX MALIG NEOPLASM BLADDER]Onset: 16-97-2822UgggikdeLwysxl of other urinary organs (2 sources)History of malignant neoplasm of ureter; Translations: [Personal history of malignant neoplasm of ureter]Onset: 723664-61-9044Jywlruhm Complication of device; implant or graft (18 sources)Disorder of cardiac pacemaker system; Translations: [Unspecified complication of cardiac and vascular prosthetic device, implant and graft, initial encounter]Onset: 482350-34-6816VspxilrdPxeweqxzjm associated with dizziness or vertigo (4 sources)Dizziness and giddiness; Translations: [DIZZINESS AND GIDDINESS] Onset: 77-69-4736EmjsstvfRkqubvtsvf and other anemia (1 source)Anemia, unspecified; Translations: [ANEMIA UNSPECIFIED]Onset: 05-13-3829YkudsmpuOutnimdk mellitus without complication (1 source)Other abnormal glucose; Translations: [OTHER ABNORMAL GLUCOSE]Onset: 33-75-3633DfiqmrrsBpfbuijkhtklz symptoms and ill-defined conditions (20 sources)Tre hematuria; Translations: [Gross hematuria]Onset: 11-09-2022 05-81-9891HinyaypbQhfc disorders (7 sources)Mood disordersOnset: 375862-88-9092Erydoypnojl chest pain (4 sources)Chest discomfort; Translations: [Other chest pain]Onset: 09-10-2024 68-40-7185GjavpmflRbmln diseases of kidney and ureters (20 sources)Hydronephrosis; Translations: [Unspecified hydronephrosis]Onset: 498351-98-4774NaubbpknUzrwo lower respiratory disease (2 sources)Other forms of dyspnea; Translations: [Other forms of dyspnea]Onset: 32-70-9598RefqicpbHypid screening for suspected conditions (not mental disorders or infectious disease) (7 sources)Patient encounter status; Translations: [Encounter for screening for other disorder]Onset: 23-40-0028CnkqydmyZztfmgll codes; unclassified (20 sources)Absent kidney; Translations: [Acquired absence of kidney]Onset: 591127-70-4040KorzukzdPnqkgpt (8 sources)Syncope and collapse; Translations: [Syncope and collapse]Onset: 75-97-8027KpsnmsspJqfscup disorders (6 sources)Disorder of thyroid gland; Translations: [Disorder of thyroid, unspecified]Onset: 557206-90-2238CeejuvgrWsdrjqscnwsg (4 sources)Onset: 04-22-2024 Resolved: Results Test NameValueInterpretationReference RangeFacilityOffice Visiton 07-19-2025 Follow-up [id number] Juan Jose Austin 1940 M Date Provider Department Center 07/19/2025 KEVEN PULIDO Hos Family History Problem Relation Age of Onset Heart failure Mother Lung cancer Father Family Status - Relation Status Age at Mother Father Level of Service:49304 [place] OFFICE/OUTPATIENT ESTABLISHED MOD [facility]DM 30 [facility] CenterOrders Onlyon 85-66-0886Lpfpar [id number] Juan Jose Austin 1940 M Date Provider Department Center 07/06/2025 [id number], HISTORICAL CARD Tamiko Hos Family History Problem Relation Age of Onset Heart failure Mother Lung cancer Father Family Status - Relation Status Age at Mother Father DeceasedNoLicking Memorial HospitalNo Panel Informationon 42-16-4342Sonvavk in clinic today MANUALLY TRANSCRIBED RESULTSProMedica [facility] Hospital Pphzgy58sz [id number] consent for treatment obtained on 05/14/25 at 12:25pmNoLicking Memorial Hospital36Left voicemail with patient to get verbal consent for treatment [facility]36Writer called patient son as well to see if he could get back in touch with us or have his father give us a call back before his appointment time.Normal [facility]36LVM another voicemail request a verbal consent for treatment for the patient to be seen today at 3:20[facility]36Called patient and left voicemail to get consent for treatment so telemed for 05/14/25 at 3:20 pm can be checked in.[facility] 37on [id number] to monitor for signs and symptoms of infection including fever, chills, shortness of breath, chest pain, abdominal pain, nausea, vomiting and diarrhea. Call our office if you notice any of these or go to the ED if needing toNormal [facility] HospitalTelemedicineon [id number] Juan Jose Austin 1940 Melvin Gray Provider Department [place] 05/14/2025 ADELINA RODGERS [facility] INFEC [facility] Family History Problem Relation Age of Onset Heart failure Mother Lung cancer Father Family Status - Relation Status Age at Mother Father Level of Service:82986 [place] OFFICE/OUTPATIENT ESTABLISHED LOW MDM 20 MIN (GT) Reason for Visit and Comments: Follow-up [[id number]][facility]36on Patient's daughter left a voicemail requesting to speak with Adilia. Daughter stated that she was instructed by the patient's wound care provider (Harpreet Avalos) to contact our office regarding the patient's antibiotics. Daughter's phone number is [phone].[facility] HospitalCBC WITH AUTO DIFFERENTIALon 03-26-2759VZQIJKTNR ABSOLUTE COUNT (10*3/UL) BY AUTOMATED COUNT0.0 10*3/uLNormal0.0-0.2[facility] [place] HospitalComment on above:Performed By: #### MG #### [facility] ([facility]) [address] [place] [address] VIRBASOPHILS RELATIVE PERCENT BY AUTOMATED COUNT0.3 %Normal ProMLakeHealth [facility] HospitalComment on above:Performed By: #### MG #### [facility] ([facility]) [address] [place] [address] VIRCELLAVISION DIFFERENTIAL TYPEAUTOMATED DIFFERENTIALNormal [facility] HospitalComment on above:Performed By: #### MG #### [facility] ([facility]) [address] [place] [address] VIREosinophils (Bld) [#/Vol]0.5 10*3/uLHigh0.0-0.4[facility] [place] HospitalComment on above:Performed By: #### MG #### [facility] ([facility]) [address] [place] [address] VIREOSINOPHILS RELATIVE PERCENT BY AUTOMATED COUNT6.0 %Normal [facility] HospitalComment on above:Performed By: #### MG #### [facility] ([facility]) [address] [place] [address] VIRErythrocyte distribution width (RBC) [Ratio]15.6 %High 11.5-15[facility] [place] HospitalComment on above:Performed By: #### MG #### [facility] ([facility]) [address] [place] [address] VIRHematocrit (Bld) [Volume fraction]33.6 %Xhx59-96QuzQrljcn [place] HospitalComment on above:Performed By: #### MG #### [facility] ([facility]) [address] [place] [address] VIRHemoglobin (Bld) [Mass/Vol]11.4 g/vVHzu18-63KflSbmuzu Muñiz HospitalComment on above:Performed By: #### MG #### [facility] ([facility]) [address] [place] [address] VIRLYMPHOCYTES ABSOLUTE COUNT (10*3/UL) BY AUTOMATED COUNT0.6 10*3/uLLow1.0-3.5[facility] [place] HospitalComment on above:Performed By: #### MG #### [facility] ([facility]) [address] [place] [address] VIRLYMPHOCYTES RELATIVE PERCENT BY AUTOMATED COUNT6.7 %Normal [facility] [place] HospitalComment on above:Performed By: #### MG #### [facility] ([facility]) [address] [place] [address] VIRMCH (RBC) [Entitic mass]29.0 zgJsezry80-67TkqTzaxbo Muñiz HospitalComment on above:Performed By: #### MG #### [facility] ([facility]) [address] [place] [address] VIRMCHC (RBC) [Mass/Vol]34.1 g/wABcfszf26-40YqeIuvhuy [place] HospitalComment on above:Performed By: #### MG #### [facility] ([facility]) [address] [place] [address] VIRMCV (RBC) [Entitic vol]85 aRMvnmnf03-092DwsJrkkqn Muñiz HospitalComment on above:Performed By: #### MG #### [facility] ([facility]) [address] [place] [address] VIRMONOCYTES ABSOLUTE COUNT (10*3/UL) BY AUTOMATED COUNT0.6 10*3/uLNormal0.0-0.9[facility]ñiz HospitalComment on above:Performed By: #### MG #### [facility] ([facility]) [address] [place], [place] [address] VIRMONOCYTES RELATIVE PERCENT BY AUTOMATED COUNT6.5 %Normal ProMthomas hospitala [place] HospitalComment on above:Performed By: #### MG #### [facility] ([facility]) [address] [place], [place] [address] VIRNEUTROPHILS ABSOLUTE COUNT BY AUTOMATED COUNT7.1 10*3/uLHigh 1.5-6.6[facility] HospitalComment on above:Performed By: #### MG #### [facility] ([facility]) [address] [place], [place] [address] VIRNEUTROPHILS RELATIVE PERCENT BY AUTOMATED COUNT80.5 %Normal ProMthomas hospitala [place] HospitalComment on above:Performed By: #### MG #### [facility] ([facility]) [address] [place] [address] VIRPlatelet mean volume (Bld) [Entitic vol]7.3 fLNormal7-12 [facility] HospitalComment on above:Performed By: #### MG #### [facility] ([facility]) [address] [place], [place] [address] VIRPlatelets (Bld) [#/Vol]187 10*3/lJMqchgz219-686MrgTfxbaz [place] HospitalComment on above:Performed By: #### MG #### [facility] ([facility]) [address] [place] [address] VIRRBC COUNT3.94 X10E12/LLow4.1-5.7[facility] Comment on above:Performed By: #### MG #### [facility] ([facility]) [address] [place] [address] VIRWBC (Bld) [#/Vol]8.8 10*3/uLNormal4-11[facility] HospitalComment on above:Performed By: #### MG #### [facility] [facility] ([facility]) [address] [place], [place] [address] VIRCOMPREHENSIVE METABOLIC PANELon 87-02-2155Bsjwhnx [Mass/Vol] 3.2 g/dLNormal3.2-5.3[facility] HospitalComment on above:Performed By: #### MG #### [facility] ([facility]) [address] [place], [place] [address] VIRALP [Catalytic activity/Vol]52 U/YHwisyc67-356FpsQvbsfx Muñiz HospitalComment on above:Performed By: #### MG #### [facility] ([facility]) [address] [place], [place] [address] VIRALT [Catalytic activity/Vol]13 U/LNormal<=40[facility] HospitalComment on above:Performed By: #### MG #### [facility] ([facility]) [address] [place] [address] VIRAnion gap [Moles/Vol]8 mmol/LNormal5-15[facility] HospitalComment on above:Performed By: #### MG #### [facility] ([facility]) [address] [place] [address] VIRAST [Catalytic activity/Vol]21 U/LNormal<=41[facility] HospitalComment on above:Performed By: #### MG #### [facility] ([facility]) [address] [place] [address] VIRBilirubin [Mass/Vol]0.3 mg/dLNormal0.3-1.2[facility] HospitalComment on above:Performed By: #### MG #### [facility] ([facility]) [address] [place] [address] VIRCalcium [Mass/Vol]7.8 mg/dLLow8.5-10.5[facility] HospitalComment on above:Performed By: #### MG #### [facility] ([facility]) [address] [place] [address] VIRChloride [Moles/Vol]108 mmol/UUemtjs02-377GulWvmegi [place] HospitalComment on above:Performed By: #### MG #### [facility] ([facility]) [address] [place] [address] VIRCO2 [Moles/Vol]27 mmol/CFrnngw24-45TdbKdftie [facility] Comment on above:Performed By: #### MG #### [facility] ([facility]) [address] [place] [address] VIRCreatinine [Mass/Vol]1.54 mg/dLHigh0.60-1.30ProS[facility] [place] HospitalComment on above:Result Comment: METHOD TRACEABLE TO IDMS STANDARD Performed By: #### MG #### [facility] ([facility]) [address] [place] [address] VIRGFR/1.73 sq M.predicted among non-blacks MDRD (S/P/Bld) [Vol rate/Area]44 mL/min/{1.73_m2}Low>=60ProSelect Medical Specialty Hospital - [facility] SouthComment on above: Result Comment: Reported eGFR is based on the CKD-EPI 2020 equation that does not use a race coefficient.Performed By: #### MG #### [facility] ([facility]) [address] [place] [address] VIRGlucose [Mass/Vol]123 mg/wEXlwt38-84EawShccqi [place] HospitalComment on above:Performed By: #### MG #### [facility] ([facility]) [address] [place] [address] VIRPotassium [Moles/Vol]4.3 mmol/LNormal3.5-5.0Pro[facility] [place] HospitalComment on above:Performed By: #### MG #### [facility] ([facility]) [address] [place] [address] VIRProtein [Mass/Vol]5.0 g/dLLow6.0-8.0ProSelect [facility] Specialty Hospital - [facility] SouthComment on above:Performed By: #### MG #### [facility] ([facility]) [address] [place] [address] VIRSodium [Moles/Vol]143 mmol/YSgjsxh369-091PcmZpelog [place] HospitalComment on above:Performed By: #### MG #### [facility] ([facility]) [address] [place] [address] VIRUrea nitrogen [Mass/Vol]25 mg/dLNormal5-27ProSelect [facility] Specialty Hospital - [facility] SouthComment on above:Performed By: #### MG #### [facility] ([facility]) [address] [place] [address] VIRMAGNESIUMon 51-64-8836Nxbyuqplj [Mass/Vol]1.7 mg/dLLow 1.8-2.6ProSelect Medical Specialty Hospital - [facility] SouthComment on above:Performed By: #### MG #### [facility] ([facility]) [address] [place] [address] VIRCBC WITH AUTO DIFFERENTIALon 92-52-3699WNXDIQXRG ABSOLUTE COUNT (10*3/UL) BY AUTOMATED COUNT0.0 10*3/uLNormal0.0-0.2[facility] Medical CenterComment on above:Performed By: #### CBCA #### [facility] ([facility]) [address] [place] [address] VIRBASOPHILS RELATIVE PERCENT BY AUTOMATED COUNT0.2 %Normal ProMKettering Health TroyComment on above:Performed By: #### CBCA #### [facility] ([facility]) [address] [place] [address] VIRCELLAVISION DIFFERENTIAL TYPEAUTOMATED DIFFERENTIALNormal ProMKettering Health TroyComment on above:Performed By: #### CBCA #### [facility] ([facility]) [address] [place] [address] VIREosinophils (Bld) [#/Vol]0.0 10*3/uLNormal0.0-0.4[facility] [place] HospitalComment on above:Performed By: #### CBCA #### [facility] ([facility]) [address] [place] [address] VIREOSINOPHILS RELATIVE PERCENT BY AUTOMATED COUNT0.0 %Normal [facility] HospitalComment on above:Performed By: #### CBCA #### [facility] ([facility]) [address] [place] [address] VIRErythrocyte distribution width (RBC) [Ratio]15.5 %High 11.5-15ProGalion Community Hospitalca [place] HospitalComment on above:Performed By: #### CBCA #### [facility] ([facility]) [address] [place] [address] VIRHematocrit (Bld) [Volume fraction]33.9 %Ern04-35FghLqjurp [place] HospitalComment on above:Performed By: #### CBCA #### [facility] ([facility]) [address] [place] [address] VIRHemoglobin (Bld) [Mass/Vol]12.0 g/gLUde27-36EbnReighn [place] HospitalComment on above:Performed By: #### CBCA #### [facility] ([facility]) [address] [place] [address] VIRLYMPHOCYTES ABSOLUTE COUNT (10*3/UL) BY AUTOMATED COUNT0.3 10*3/uLLow1.0-3.5[facility] [place] HospitalComment on above:Performed By: #### CBCA #### [facility] ([facility]) [address] [place] [address] VIRLYMPHOCYTES RELATIVE PERCENT BY AUTOMATED COUNT2.9 %Normal [facility] HospitalComment on above:Performed By: #### CBCA #### [facility] ([facility]) [address] [place] [address] VIRMCH (RBC) [Entitic mass]29.6 ajEnjhrp12-58FpuRetsco [place] HospitalComment on above:Performed By: #### CBCA #### [facility] ([facility]) [address] [place] [address] VIRMCHC (RBC) [Mass/Vol]35.3 g/eDJyqpgo80-43TjgYncrcg [place] HospitalComment on above:Performed By: #### CBCA #### [facility] ([facility]) [address] [place] [address] VIRMCV (RBC) [Entitic vol]84 qDUgpffw75-834IgnWhtdeh [place] HospitalComment on above:Performed By: #### CBCA #### [facility] ([facility]) [address] [place] [address] VIRMONOCYTES ABSOLUTE COUNT (10*3/UL) BY AUTOMATED COUNT0.6 10*3/uLNormal0.0-0.9[facility] [place] HospitalComment on above:Performed By: #### CBCA #### [facility] ([facility]) [address] [place] [address] VIRMONOCYTES RELATIVE PERCENT BY AUTOMATED COUNT5.5 %Normal [facility] HospitalComment on above:Performed By: #### CBCA #### [facility] ([facility]) [address] [place] [address] VIRNEUTROPHILS ABSOLUTE COUNT BY AUTOMATED COUNT10.0 10*3/uL High1.5-6.6[facility] [place] HospitalComment on above:Performed By: #### CBCA #### [facility] ([facility]) [address] [place] [address] VIRNEUTROPHILS RELATIVE PERCENT BY AUTOMATED COUNT91.4 %Normal [facility] [place] HospitalComment on above:Performed By: #### CBCA #### [facility] ([facility]) [address] [place] [address] VIRPlatelet mean volume (Bld) [Entitic vol]7.5 fLNormal7-12 [facility] HospitalComment on above:Performed By: #### CBCA #### [facility] ([facility]) [address] [place] [address] VIRPlatelets (Bld) [#/Vol]211 10*3/xAKcesna502-812EmiZetwvp [place] HospitalComment on above:Performed By: #### CBCA #### [facility] ([facility]) [address] [place] [address] VIRRBC COUNT4.04 X10E12/LLow4.1-5.7[facility] Comment on above:Performed By: #### CBCA #### [facility] ([facility]) [address] [place] [address] VIRWBC (Bld) [#/Vol]10.9 10*3/uLNormal4-11ProSelect [facility] Hospital - [facility] SouthComment on above:Performed By: #### CBCA #### [facility] ([facility]) [address] [place] [address] VIRCNPNon [id number] (HEMTSA) JUAN JOSE AUSTIN ([id number]) 1940 M Date Time Provider Department 04/22/25 GRAEME VAZQUEZ During your visit today, we recorded the following information about you: Shannan Castelan, RN 04/22/2025 9:11 AM Signed Pt scheduled for CT tomorrow. Currently hospitalized at [facility] in [place]. New defibrillator placed- site became reddened and [...] [N1*11/29/2023 Encounter Status:Closed by SHANNAN CASTELAN on 04/22/25NoEast [facility] HospitalPREHENSIVE METABOLIC PANELon [id number] [Mass/Vol]3.2 g/dL Normal3.2-5.3[facility] HospitalComment on above:Performed By: #### CBCA #### [facility] ([facility]) [address] [place] [address] VIRALP [Catalytic activity/Vol]48 U/GPaaarv54-753YctFphpyz [place] HospitalComment on above:Performed By: #### CBCA #### [facility] ([facility]) [address] [place] [address] VIRALT [Catalytic activity/Vol]14 U/LNormal<=40[facility] [place] HospitalComment on above:Performed By: #### CBCA #### [facility] ([facility]) [address] [place] [address] VIRAnion gap [Moles/Vol]9 mmol/LNormal5-15[facility] [place] HospitalComment on above:Performed By: #### CBCA #### [facility] ([facility]) [address] [place] [address] VIRAST [Catalytic activity/Vol]24 U/LNormal<=41[facility] HospitalComment on above:Performed By: #### CBCA #### [facility] ([facility]) [address] [place] [address] VIRBilirubin [Mass/Vol]0.3 mg/dLNormal0.3-1.2[facility] HospitalComment on above:Performed By: #### CBCA #### [facility] ([facility]) [address] [place] [address] VIRCalcium [Mass/Vol]8.0 mg/dLLow8.5-10.5PHighland District HospitalComment on above:Performed By: #### CBCA #### [facility] ([facility]) [address] [place] [address] VIRChloride [Moles/Vol]111 mmol/NMyyb33-138HjxMnkzyl [place] HospitalComment on above:Performed By: #### CBCA #### [facility] ([facility]) [address] [place] [address] VIRCO2 [Moles/Vol]24 mmol/PTqylrl72-40JjbRnfxpd [facility] [facility] Comment on above:Performed By: #### CBCA #### [facility] ([facility]) [address] [place] [address] VIRCreatinine [Mass/Vol]1.48 mg/dLHigh0.60-1.30ProSelect Medical Specialty Hospital - [facility] SouthComment on above:Result Comment: METHOD TRACEABLE TO IDMS STANDARD Performed By: #### CBCA #### [facility] ([facility]) [address] [place] [address] VIRGFR/1.73 sq M.predicted among non-blacks MDRD (S/P/Bld) [Vol rate/Area]46 mL/min/{1.73_m2}Low>=60ProSelect Medical Specialty Hospital - [facility] SouthComment on above: Result Comment: Reported eGFR is based on the CKD-EPI 2020 equation that does not use a race coefficient.Performed By: #### CBCA #### [facility] ([facility]) [address] [place] [address] VIRGlucose [Mass/Vol]147 mg/qWDjue53-88WjiVtksqj [place] HospitalComment on above:Performed By: #### CBCA #### [facility] ([facility]) [address] [place] [address] VIRPotassium [Moles/Vol]4.3 mmol/LNormal3.5-5.0[facility] HospitalComment on above:Performed By: #### CBCA #### [facility] ([facility]) [address] [place] [address] VIRProtein [Mass/Vol]4.9 g/dLLow6.0-8.0[facility] [place] HospitalComment on above:Performed By: #### CBCA #### [facility] ([facility]) [address] [place] [address] VIRSodium [Moles/Vol]144 mmol/YKylwma617-843FjlFongyo [place] HospitalComment on above:Performed By: #### CBCA #### [facility] ([facility]) [address] [place] [address] VIRUrea nitrogen [Mass/Vol]23 mg/dLNormal5-27[facility] [place] HospitalComment on above:Performed By: #### CBCA #### [facility] ([facility]) [address] [place] [address] VIRIONIZED CALCIUMon 93-30-2251LHANWLQ CALCIUM - ICAN4.6 mg/dL Normal4.5-5.3[facility] [place] HospitalComment on above:Performed By: #### CBCA #### [facility] ([facility]) [address] [place] [address] VIRMAGNESIUMon 34-70-2830Gklihznmn [Mass/Vol]1.9 mg/dLNormal 1.8-2.6[facility] [place] HospitalComment on above:Performed By: #### CBCA #### [facility] ([facility]) [address] [place] [address] VIRVANCOMYCIN, RANDOMon 14-46-4783NMYCVNNJOB95.9 ug/mLNormal 5.0-40.0[facility] [place] HospitalComment on above:Order Comment: Peak 30-40 ug/mLTrough 5-20 ug/mlPerformed By: #### CBCA #### [facility] ([facility]) [address] [place] [address] VIRBEDSIDE GLUCOSEon 16-98-7887Whhxkat [Mass/Vol]160 mg/dLHigh 65-99[facility] [place] HospitalComment on above:Performed By: #### CBCA #### [facility] ([facility]) [address] [place] [address] VIRCBC WITH AUTO DIFFERENTIALon 30-71-4903XKQDVZOBO ABSOLUTE COUNT (10*3/UL) BY AUTOMATED COUNT0.0 10*3/uLNormal0.0-0.2[facility] [place] HospitalComment on above:Performed By: #### WCSUP #### [facility] ([facility]) [address] [place] [address] VIRBASOPHILS RELATIVE PERCENT BY AUTOMATED COUNT0.7 %Normal [facility] HospitalComment on above:Performed By: #### WCSUP #### [facility] ([facility]) [address] [place] [address] VIRCELLAVISION DIFFERENTIAL TYPEAUTOMATED DIFFERENTIALNormal [facility] HospitalComment on above:Performed By: #### WCSUP #### [facility] ([facility]) [address] [place] [address] VIREosinophils (Bld) [#/Vol]0.4 10*3/uLNormal0.0-0.4[facility] [place] HospitalComment on above:Performed By: #### WCSUP #### [facility] ([facility]) [address] [place] [address] VIREOSINOPHILS RELATIVE PERCENT BY AUTOMATED COUNT6.7 %Normal [facility] HospitalComment on above:Performed By: #### WCSUP #### [facility] ([facility]) [address] [place] [address] VIRErythrocyte distribution width (RBC) [Ratio]15.7 %High 11.5-15[facility] [place] HospitalComment on above:Performed By: #### WCSUP #### [facility] ([facility]) [address] [place] [address] VIRHematocrit (Bld) [Volume fraction]36.3 %Xgq04-88BpzXsrkto [place] HospitalComment on above:Performed By: #### WCSUP #### [facility] ([facility]) [address] [place] [address] VIRHemoglobin (Bld) [Mass/Vol]12.6 g/iFYtk11-16SqyDjetwa [place] HospitalComment on above:Performed By: #### WCSUP #### [facility] ([facility]) [address] [place] [address] VIRLYMPHOCYTES ABSOLUTE COUNT (10*3/UL) BY AUTOMATED COUNT0.6 10*3/uLLow1.0-3.5[facility] [place] HospitalComment on above:Performed By: #### WCSUP #### [facility] ([facility]) [address] [place] [address] VIRLYMPHOCYTES RELATIVE PERCENT BY AUTOMATED COUNT11.3 %Normal [facility] [place] HospitalComment on above:Performed By: #### WCSUP #### [facility] ([facility]) [address] [place] [address] VIRMCH (RBC) [Entitic mass]29.1 hwBlhnio36-33VpxVbtmrl [place] HospitalComment on above:Performed By: #### WCSUP #### [facility] ([facility]) [address] [place] [address] VIRMCHC (RBC) [Mass/Vol]34.7 g/iVYgxvdx34-30FuxYivqpl [place] HospitalComment on above:Performed By: #### WCSUP #### [facility] ([facility]) [address] [place] [address] VIRMCV (RBC) [Entitic vol]84 yOZqlvnr42-408LbtIiidwy Muñiz HospitalComment on above:Performed By: #### WCSUP #### [facility] ([facility]) [address] [place] [address] VIRMONOCYTES ABSOLUTE COUNT (10*3/UL) BY AUTOMATED COUNT0.4 10*3/uLNormal0.0-0.9[facility] [place] HospitalComment on above:Performed By: #### WCSUP #### [facility] ([facility]) [address] [place] [address] VIRMONOCYTES RELATIVE PERCENT BY AUTOMATED COUNT6.3 %Normal [facility] HospitalComment on above:Performed By: #### WCSUP #### [facility] ([facility]) [address] [place] [address] VIRNEUTROPHILS ABSOLUTE COUNT BY AUTOMATED COUNT4.2 10*3/uL Normal1.5-6.6[facility] [place] HospitalComment on above:Performed By: #### WCSUP #### [facility] ([facility]) [address] [place] [address] VIRNEUTROPHILS RELATIVE PERCENT BY AUTOMATED COUNT75.0 %Normal [facility] HospitalComment on above:Performed By: #### WCSUP #### [facility] ([facility]) [address] [place] [address] VIRPlatelet mean volume (Bld) [Entitic vol]7.4 fLNormal7-12 [facility]MLake[facility] HospitalComment on above:Performed By: #### WCSUP #### [facility] ([facility]) [address] [place] [address] VIRPlatelets (Bld) [#/Vol]201 10*3/wSWqynly068-134YzwWvdsdl [place] HospitalComment on above:Performed By: #### WCSUP #### [facility] ([facility]) [address] [place] [address] VIRRBC COUNT4.34 X10E12/LNormal4.1-5.7[facility] Comment on above:Performed By: #### WCSUP #### [facility] ([facility]) [address] [place] [address] VIRWBC (Bld) [#/Vol]5.6 10*3/uLNormal4-11[facility] HospitalComment on above:Performed By: #### WCSUP #### [facility] ([facility]) [address] [place] [address] VIRCOMPREHENSIVE METABOLIC PANELon 08-79-2419Kqcldeb [Mass/Vol] 3.5 g/dLNormal3.2-5.3[facility] [place] HospitalComment on above:Performed By: #### WCSUP #### [facility] ([facility]) [address] [place] [address] VIRALP [Catalytic activity/Vol]51 U/VGgyuch19-298KunVocftu Muñiz HospitalComment on above:Performed By: #### WCSUP #### [facility] ([facility]) [address] [place] [address] VIRALT [Catalytic activity/Vol]9 U/LNormal<=40[facility] HospitalComment on above:Performed By: #### WCSUP #### [facility] ([facility]) [address] [place] [address] VIRAnion gap [Moles/Vol]6 mmol/LNormal5-15[facility] HospitalComment on above:Performed By: #### WCSUP #### [facility] ([facility]) [address] [place] [address] VIRAST [Catalytic activity/Vol]19 U/LNormal<=41[facility] HospitalComment on above:Performed By: #### WCSUP #### [facility] ([facility]) [address] [place] [address] VIRBilirubin [Mass/Vol]0.5 mg/dLNormal0.3-1.2PHighland District HospitalComment on above:Performed By: #### WCSUP #### [facility] ([facility]) [address] [place] [address] VIRCalcium [Mass/Vol]8.5 mg/dLNormal8.5-10.5PHighland District HospitalComment on above:Performed By: #### WCSUP #### [facility] ([facility]) [address] [place] [address] VIRChloride [Moles/Vol]110 mmol/ZZiej62-262EwgPymuoeSelect Medical Specialty Hospital - Columbus SouthComment on above:Performed By: #### WCSUP #### [facility] ([facility]) [address] [place] [address] VIRCO2 [Moles/Vol]28 mmol/ZEtfbgl05-93GkxGndtks [facility] Comment on above:Performed By: #### WCSUP #### [facility] ([facility]) [address] [place] [address] VIRCreatinine [Mass/Vol]1.43 mg/dLHigh0.60-1.30ProSelect Medical Specialty Hospital - [facility] SouthComment on above:Result Comment: METHOD TRACEABLE TO IDMS STANDARD Performed By: #### WCSUP #### [facility] ([facility]) [address] [place] [address] VIRGFR/1.73 sq M.predicted among non-blacks MDRD (S/P/Bld) [Vol rate/Area]48 mL/min/{1.73_m2}Low>=60ProSelect Medical Specialty Hospital - [facility] SouthComment on above: Result Comment: Reported eGFR is based on the CKD-EPI 2020 equation that does not use a race coefficient.Performed By: #### WCSUP #### [facility] ([facility]) [address] [place] [address] VIRGlucose [Mass/Vol]104 mg/cUHfxf02-15JjoErklqg Muñiz HospitalComment on above:Performed By: #### WCSUP #### [facility] ([facility]) [address] [place] [address] VIRPotassium [Moles/Vol]4.0 mmol/LNormal3.5-5.0[facility] HospitalComment on above:Performed By: #### WCSUP #### [facility] ([facility]) [address] [place] [address] VIRProtein [Mass/Vol]5.3 g/dLLow6.0-8.0[facility] HospitalComment on above:Performed By: #### WCSUP #### [facility] ([facility]) [address] [place] [address] VIRSodium [Moles/Vol]144 mmol/TGfoozn074-477XeqVrvfaq Muñiz HospitalComment on above:Performed By: #### WCSUP #### [facility] ([facility]) [address] [place] [address] VIRUrea nitrogen [Mass/Vol]22 mg/dLNormal5-27[facility] HospitalComment on above:Performed By: #### WCSUP #### [facility] ([facility]) [address] [place] [address] VIRMAGNESIUMon 52-95-6084Sutwiupon [Mass/Vol]2.0 mg/dLNormal 1.8-2.6[facility] HospitalComment on above:Performed By: #### WCSUP #### [facility] ([facility]) [address] [place] [address] VIRREPEATED ABORHon 58-48-1104LWU_YISWJJFvcxdrHovJcgned Muñiz HospitalComment on above:Performed By: #### WCSUP #### [facility] ([facility]) [address] [place] [address] VIRRH_INTEPPositiveNormalProMedica Muñiz HospitalComment on above:Performed By: #### WCSUP #### [facility] ([facility]) [address] [place] [address] VIRTYPE AND SCREENon 57-01-6396IPC_KBNMXEVvnelaLkaCiarvo [place] HospitalComment on above:Performed By: #### WCSUP #### [facility] ([facility]) [address] [place] [address] VIRRH_INTEPPositiveNormalProMedica [place] HospitalComment on above:Performed By: #### WCSUP #### [facility] ([facility]) [address] [place] [address] VIRVANCOMYCIN, RANDOMon 53-00-6724DMNALPSLVC79.5 ug/mLNormal 5.0-40.0[facility] [place] HospitalComment on above:Order Comment: Along with Rare Normal Skin [place].Performed By: #### WCSUP #### [facility] ([facility]) [address] [place] [address] VIRWOUND CULTURE SURGICAL DEEP INCLUDES GRAM STAINon 04-21-2025 WOUND CULTURE SURGICAL DEEP INCLUDES GRAM STAINCULTURE RESULTS NO GROWTH 2 DAYS GRAM STAIN 10 to 24 White Blood Cells/LPF 0 Squamous Epithelial Cells/LPF No organisms seenNoalSelect Medical TriHealth Rehabilitation HospitalCominsight surgical hospital on above:Order Comment: Pre-op diagnosis:pocket errosion, chbPerformed By: #### CBCA #### [facility] ([facility]) [address] [place] [address] VIRWOUND CULTURE SURGICAL DEEP INCLUDES GRAM STAINCULTURE [...] F Cefazolin S F Susceptibility Comment FNormalProMedica Community Regional Medical CenterComment on above:Order Comment: Pre-op diagnosis:pocket errosion, chbPerformed By: #### CBCA #### [facility] ([facility]) [address] [place] [address] VIRWOUND CULTURE SURGICAL DEEP INCLUDES GRAM STAINCULTURE [...] F Vancomycin S <=^0.5 F Susceptibility Comment FNormalProSelect Medical Specialty Hospital - Columbus SouthComment on above:Order Comment: Pre-op diagnosis:pocket errosion, chbPerformed By: #### CBCA #### [facility] ([facility]) [address] [place] [address] VIRXR CHEST 1 VWon 03-34-2818DM CHEST 1 VWXR CHEST 1 VW Single [...] by Lio Licea MD on 04/21/2025 9:14 PMNormalProSelect Medical Specialty Hospital - [facility] SouthBLOOD CULTUREon [id number] identified Cx Nom (Bld)CULTURE RESULTS NO GROWTH 5 DAYSNormalSelect Medical TriHealth Rehabilitation HospitalComment on above:Order Comment: Along with Rare Normal Skin [place].Performed By: #### WCSUP #### [facility] ([facility]) [address] [place] [address] VIRCBC WITH AUTO DIFFERENTIALon [id number] ABSOLUTE COUNT (10*3/UL) BY AUTOMATED COUNT0.1 10*3/uLNormal0.0-0.2Pro[facility] Regional Medical CenterComment on above:Performed By: #### CBCA #### [facility] ([facility]) [address] [place] [address] VIRBASOPHILS RELATIVE PERCENT BY AUTOMATED COUNT1.1 %Normal [facility] HospitalComment on above:Performed By: #### CBCA #### [facility] ([facility]) [address] [place] [address] VIRCELLAVISION DIFFERENTIAL TYPEAUTOMATED DIFFERENTIALNormal [facility] HospitalComment on above:Performed By: #### CBCA #### [facility] ([facility]) [address] [place] [address] VIREosinophils (Bld) [#/Vol]0.2 10*3/uLNormal0.0-0.4[facility] HospitalComment on above:Performed By: #### CBCA #### [facility] ([facility]) [address] [place] [address] VIREOSINOPHILS RELATIVE PERCENT BY AUTOMATED COUNT4.5 %Normal [facility] HospitalComment on above:Performed By: #### CBCA #### [facility] ([facility]) [address] [place] [address] VIRErythrocyte distribution width (RBC) [Ratio]15.6 %High 11.5-15[facility] HospitalComment on above:Performed By: #### CBCA #### [facility] ([facility]) [address] [place] [address] VIRHematocrit (Bld) [Volume fraction]37.1 %[id number] Muñiz HospitalComment on above:Performed By: #### CBCA #### [facility] ([facility]) [address] [place] [address] VIRHemoglobin (Bld) [Mass/Vol]12.9 g/[id number] [place] HospitalComment on above:Performed By: #### CBCA #### [facility] ([facility]) [address] [place] [address] VIRLYMPHOCYTES ABSOLUTE COUNT (10*3/UL) BY AUTOMATED COUNT0.7 10*3/uLLow1.0-3.5[facility]ñiz HospitalComment on above:Performed By: #### CBCA #### [facility] ([facility]) [address] [place] [address] VIRLYMPHOCYTES RELATIVE PERCENT BY AUTOMATED COUNT14.7 %Normal [facility] HospitalComment on above:Performed By: #### CBCA #### [facility] ([facility]) [address] [address] [place] [address] VIRMCH (RBC) [Entitic mass]29.1 ayTtxnvc80-00DakJakjtn Muñiz HospitalComment on above:Performed By: #### CBCA #### [facility] ([facility]) [address] [place] [address] VIRMCHC (RBC) [Mass/Vol]34.8 g/rBIuagej91-82ZreWbnkrq Muñiz HospitalComment on above:Performed By: #### CBCA #### [facility] ([facility]) [address] [place] [address] VIRMCV (RBC) [Entitic vol]84 uVEqmkqc43-427CroDjrjmy Muñiz HospitalComment on above:Performed By: #### CBCA #### [facility] ([facility]) [address] [place] [address] VIRMONOCYTES ABSOLUTE COUNT (10*3/UL) BY AUTOMATED COUNT0.3 10*3/uLNormal0.0-0.9ProGalion Community Hospitalca [place] HospitalComment on above:Performed By: #### CBCA #### [facility] ([facility]) [address] [place] [address] VIRMONOCYTES RELATIVE PERCENT BY AUTOMATED COUNT7.0 %Normal [facility] [place] HospitalComment on above:Performed By: #### CBCA #### [facility] ([facility]) [address] [place] [address] VIRNEUTROPHILS ABSOLUTE COUNT BY AUTOMATED COUNT3.5 10*3/uL Normal1.5-6.6ProMedica Muñiz HospitalComment on above:Performed By: #### CBCA #### [facility] ([facility]) [address] [place] [address] VIRNEUTROPHILS RELATIVE PERCENT BY AUTOMATED COUNT72.7 %Normal [facility] [place] HospitalComment on above:Performed By: #### CBCA #### [facility] ([facility]) [address] [place] [address] VIRPlatelet mean volume (Bld) [Entitic vol]7.3 fLNormal7-12 [facility] [place] HospitalComment on above:Performed By: #### CBCA #### [facility] ([facility]) [address] [place] [address] VIRPlatelets (Bld) [#/Vol]205 10*3/xVMtmhau046-843LxvOtubrq [place] HospitalComment on above:Performed By: #### CBCA #### [facility] ([facility]) [address] [place] [address] VIRRBC COUNT4.44 X10E12/LNormal4.1-5.7Pro[facility] Hospitalca [facility] on above:Performed By: #### CBCA #### [facility] ([facility]) [address] [place] [address] VIRWBC (Bld) [#/Vol]4.8 10*3/uLNormal4-11[facility] [place] HospitalComment on above:Performed By: #### CBCA #### [facility] ([facility]) [address] [place] [address] VIRCOMPREHENSIVE METABOLIC PANELon 40-28-5673Qxrjfuu [Mass/Vol] 3.5 g/dLNormal3.2-5.3[facility] [place] HospitalComment on above:Performed By: #### CMP #### [facility] ([facility]) [address] [place] [address] VIRALP [Catalytic activity/Vol]55 U/SYxdybb80-887MsaAmlhpm [place] HospitalComment on above:Performed By: #### CMP #### [facility] ([facility]) [address] [place] [address] VIRALT [Catalytic activity/Vol]10 U/LNormal<=40Pro[facility]ica Muñiz HospitalComment on above:Performed By: #### CMP #### [facility] ([facility]) [address] [place] [address] VIRAnion gap [Moles/Vol]8 mmol/LNormal5-15[facility]ñiz HospitalComment on above:Performed By: #### CMP #### [facility] ([facility]) [address] [place] [address] VIRAST [Catalytic activity/Vol]23 U/LNormal<=41Pro[facility]ñiz HospitalComment on above:Performed By: #### CMP #### [facility] ([facility]) [address] [place], [place] [address] VIRBilirubin [Mass/Vol]0.3 mg/dLNormal0.3-1.2Pro[facility] Muñiz HospitalComment on above:Performed By: #### CMP #### [facility] ([facility]) [address] [place], [place] [address] VIRCalcium [Mass/Vol]8.3 mg/dLLow8.5-10.5[facility]ñiz HospitalComment on above:Performed By: #### CMP #### [facility] ([facility]) [address] [place] [address] VIRChloride [Moles/Vol]110 mmol/VCoza92-109BqlDpndzi Muñiz HospitalComment on above:Performed By: #### CMP #### [facility] ([facility]) [address] [place] [address] VIRCO2 [Moles/Vol]25 mmol/XOhqwfd33-87NulSszxgp [facility] Comment on above:Performed By: #### CMP #### [facility] ([facility]) [address] [place] [address] VIRCreatinine [Mass/Vol]1.58 mg/dLHigh0.60-1.30[facility] Muñiz HospitalComment on above:Result Comment: METHOD TRACEABLE TO IDMS STANDARD Performed By: #### CMP #### [facility] ([facility]) [address] [place] [address] VIRGFR/1.73 sq M.predicted among non-blacks MDRD (S/P/Bld) [Vol rate/Area]43 mL/min/{1.73_m2}Low>=60ProGal[facility] Community Hospitalca [place] HospitalComment on above: Result Comment: Reported eGFR is based on the CKD-EPI 2020 equation that does not use a race coefficient.Performed By: #### CMP #### [facility] ([facility]) [address] [place] [address] VIRGlucose [Mass/Vol]93 mg/vNWexwbp15-69PngSxuqbp [place] HospitalComment on above:Performed By: #### CMP #### [facility] ([facility]) [address] [place] [address] VIRPotassium [Moles/Vol]3.4 mmol/LLow3.5-5.0ProS[facility] Hospital [place] HospitalComment on above:Performed By: #### CMP #### [facility] ([facility]) [address] [place] [address] VIRProtein [Mass/Vol]5.7 g/dLLow6.0-8.0Pro[facility] [place] HospitalComment on above:Performed By: #### CMP #### [facility] ([facility]) [address] [place] [address] VIRSodium [Moles/Vol]143 mmol/WRsysxd102-303SzaOupwwc [place] HospitalComment on above:Performed By: #### CMP #### [facility] ([facility]) [address] [place] [address] VIRUrea nitrogen [Mass/Vol]25 mg/dLNormal5-27Pro[facility] [place] HospitalComment on above:Performed By: #### CMP #### [facility] ([facility]) [address] [place] [address] VIRLACTATE W/ REFLEXon 89-70-2658GAHMYHO W/REFLEX0.9 mmol/L Normal0.4-2.0ProSelect Medical Specialty Hospital - Columbus SouthComment on above:Order Comment: Result did not trigger repeat Lactate, re-order if needed.Performed By: #### LACTS #### [facility] ([facility]) [address] [place] [address] VIRMAGNESIUMon 21-98-1599Firzdbxkr [Mass/Vol]2.1 mg/dLNormal 1.8-2.6ProSelect Medical Specialty Hospital - Columbus SouthComment on above:Performed By: #### MG #### [facility] ([facility]) [address] [place] [address] VIRPOTASSIUMon 90-98-8861Yypltgegj [Moles/Vol]4.0 mmol/LNormal 3.5-5.0ProSelect Medical Specialty Hospital - Columbus SouthComment on above:Performed By: #### K #### [facility] ([facility]) [address] [place] [address] VIRPROCALCITONINon 94-26-8720EBPGLDXEFUPQB<^0.05Normal<0.05 [facility] HospitalComment on above:Order Comment: <0.50 ng/mL - Low risk of severe sepsis and/or septic shock. <2.00 ng/mL - Recommend retesting within 6-24 hours. >2.00 ng/mL - High risk of sepsis and/or septic shock.Performed By: #### PCAL #### [facility] ([facility]) [address] [place] [address] VIRPROCALCITONIN<^0.05Normal<0.05[facility] Comment on above:Order Comment: <0.50 ng/mL - Low risk of severe sepsis and/or septic shock. <2.00 ng/mL - Recommend retesting within 6-24 hours. >2.00 ng/mL - High risk of sepsis and/or septic shock.Performed By: #### PCAL #### [facility] ([facility]) [address] [place] [address] VIRURINALYSISon 29-10-2329Lqportcsx Ql (U)NegativeNormal NegativeProMedica [place] HospitalComment on above:Performed By: #### UA #### [facility] ([facility]) [address] [place] [address] VIRBLOOD/HGBNegativeNormalNegativeProMedica [facility] on above:Performed By: #### UA #### [facility] ([facility]) [address] [place] [address] VIRColor (U)YellowNormalYellow, ColorlessProMedica [place] HospitalComment on above:Performed By: #### UA #### [facility] ([facility]) [address] [place] [address] VIRGlucose Ql (U)NegativeNormalNegativeProMedica [place] HospitalComment on above:Performed By: #### UA #### [facility] ([facility]) [address] [place] [address] VIRKetones Ql (U)NegativeNormalNegativeProMedica [place] HospitalComment on above:Performed By: #### UA #### [facility] ([facility]) [address] [place] [address] VIRLeukocyte esterase Test strip Ql (U)SmallAbnormalNegative [facility] [place] HospitalComment on above:Performed By: #### UA #### [facility] ([facility]) [address] [place] [address] VIRMUCOUSPresentAbnormalNoneProMedica [place] HospitalComment on above:Performed By: #### UA #### [facility] ([facility]) [address] [place] [address] VIRNitrite Ql (U)NegativeNormalNegativeProMedica [place] HospitalComment on above:Performed By: #### UA #### [facility] ([facility]) [address] [place] [address] VIRPH,URINE6.5Bdnljp3.0-8.5Pro[facility]ica [place] HospitalComment on above:Performed By: #### UA #### [facility] ([facility]) [address] [place] [address] VIRProtein Ql (U)NegativeNormalNegativeProMedica [place] HospitalComment on above:Performed By: #### UA #### [facility] ([facility]) [address] [place] [address] VIRR.B.NNHRZ0Rsrbbo1-9ErtVlisrr [place] HospitalComment on above:Performed By: #### UA #### [facility] ([facility]) [address] [place] [address] VIRSpecific gravity (U) [Rel density]1.035Aeezaz0.003-1.035 [facility] [place] HospitalComment on above:Performed By: #### UA #### [facility] ([facility]) [address] [place] [address] VIRSQUAMOUS EPITHELIUM<^3Pgquym6-7LntJxewau [facility] Comment on above:Performed By: #### UA #### [facility] ([facility]) [address] [place] [address] VIRTURBIDITYClearNormalClearProMedica [place] HospitalComment on above:Performed By: #### UA #### [facility] ([facility]) [address] [place] [address] VIRUROBILINOGEN<1.1 eu/dLNormal<1.1 eu/dLProMedica [place] HospitalComment on above:Performed By: #### UA #### [facility] ([facility]) [address] [place] [address] VIRW.B.ZLJYW69Vwvp7-2MobRjajxd [place] HospitalComment on above: Performed By: #### UA #### [facility] ([facility]) [address] [place] [address] VIRURINE CULTUREon 52-08-6941Hpmfmfst identified Cx Nom (U) CULTURE RESULTS NO GROWTH AT <1000 CFU/mLNormalProSelect Medical Specialty Hospital - Columbus SouthComment on above: Performed By: #### WCSUP #### [facility] ([facility]) [address] [place] [address] VIRVANCOMYCIN, RANDOMon 79-86-9935QSLDTLFNKU89.3 ug/mLNormal 5.0-40.0ProSelect Medical Specialty Hospital - Columbus SouthComment on above:Order Comment: Along with Rare Normal Skin [place].Performed By: #### [id number] #### [facility] ([facility]) [address] [place] [address] VIRBLOOD CULTUREon 77-83-4981Ribuugvq identified Cx Nom (Bld)No growth at 5 daysNormalUniversMercy Health Fairfield HospitalComment on above:Order Comment: Prior to antibiotic administrationPerformed By: #### [id number] #### [facility] ([facility]) [address] [place], [place] [address]NVI WITH AUTO DIFFERENTIALon 20-23-9507Zcbytunoj (Bld) [#/Vol] 0.05 10*3/uLNormal0.00-0.20UnKettering Health DaytonComment on above: Performed By: #### [id number] ####[facility] ([facility])[address] [place], [place] [address]Uwdsisyth/100 WBC (Bld)1.1 %High0.0-1.0UnKettering Health DaytonComment on above:Performed By: #### [id number] ####[facility] ([facility])[address] [place], [place] [address]Lmcerucargo (Bld) [#/Vol]0.17 10*3/uL Normal0.00-0.50UnKettering Health DaytonComment on above:Performed By: #### [id number] ####[facility] ([facility])[address] [place] [address] Eosinophils/100 WBC (Bld)3.9 %Normal0.0-6.0UnKettering Health Dayton Comment on above:Performed By: #### [id number] ####[facility] ([facility])[address] [place], [place] [address]Dgavpehzagw distribution width (RBC) [Ratio]15.2 % High11.5-15.0UnKettering Health DaytonComment on above:Performed By: #### [id number] ####[facility] ([facility])[address] [place] [address] ERYTHROCYTE MEAN CORPUSCULAR HEMOGLOBIN CONCENTRATION (G/DL) BY DSMKDINLW68.5 g/yYOwmqir71.0-35.0UnKettering Health DaytonComment on above:Performed By: #### [id number] ####[facility] ([facility])[address] [place], [place] [address]Pzlespbbhe (Bld) [Volume fraction]34.0 %Low39.0-50.0UnKettering Health DaytonComment on above:Performed By: #### [id number] ####[facility] ([facility])[address] [place], [place] [address]Kyvlmbhqwe (Bld) [Mass/Vol]11.4 g/dL Low13.0-17.0UnKettering Health DaytonComment on above:Performed By: #### [id number] ####[facility] ([facility])[address] [place] [address] Immature granulocytes (Bld) [#/Vol]0.01 10*3/uLNormal0.00-0.20UnKettering Health DaytonComment on above:Performed By: #### [id number] ####[facility] ([facility])[address] [place], [place] [address]Nhfjqvit granulocytes/100 WBC (Bld)0.2 %Normal0.0-1.0UnKettering Health DaytonComment on above: Performed By: #### [id number] ####[facility] ([facility])[address] [place], [place] [address]Ffiojvcotbz (Bld) [#/Vol]0.69 10*3/uLLow1.20-4.00UnKettering Health DaytonComment on above:Performed By: #### [id number] ####[facility] ([facility])[address] [place], [place] [address]Flvoevjffrq/100 WBC (Bld) 15.7 %Low20.0-45.0UnKettering Health DaytonComment on above:Performed By: #### [id number] ####[facility] ([facility])[address] [place], [place] [address]RRS (RBC) [Entitic mass]29.2 mcMhuooa30.0-33.0UnKettering Health DaytonComment on above:Performed By: #### [id number] ####[facility] ([facility])[address] [place], [place] [address]TPX (RBC) [Entitic vol]87.2 fLNormal 82.0-98.0UnKettering Health DaytonComment on above:Performed By: #### [id number] ####[facility] ([facility])[address] [place] [address] Monocytes (Bld) [#/Vol]0.42 10*3/uLNormal0.10-1.00UnKettering Health DaytonComment on above:Performed By: #### [id number] ####[facility] ([facility])[address] [place], [place] [address]Mntwewxxz/100 WBC (Bld)9.5 %Normal 5.0-12.0UnKettering Health DaytonComment on above:Performed By: #### [id number] ####[facility] ([facility])[address] [place] [address] Neutrophils (Bld) [#/Vol]3.06 10*3/uLNormal1.60-7.60UnKettering Health DaytonComment on above:Performed By: #### [id number] ####[facility] ([facility])[address] [place] [address]Wsxfgmllyob/100 WBC (Bld)69.6 %Normal 40.0-72.0UnKettering Health DaytonComment on above:Performed By: #### [id number] ####[facility] ([facility])[address] [place] [address]TARO (PER 100 WBCS) BY AUTOMATED COUNT0.0 %Ujgsto9ApdchiiycbKettering Health Dayton Comment on above:Performed By: #### [id number] ####[facility] ([facility])[address] [place] [address]RIEMYKTMA (10*3/UL) IN BLOOD AUTOMATED KOSSA460 10*3/gOEqkfob799-409RnladvdbilKettering Health DaytonComment on above: Performed By: #### [id number] ####[facility] ([facility])[address] [place] [address]GGG (Bld) [#/Vol]3.90 10*6/uLLow4.20-5.70UnKettering Health DaytonComment on above:Performed By: #### [id number] ####[facility] ([facility])[address] [place], [place] [address]SQI (Bld) [#/Vol]4.40 10*3/uLNormal 4.00-10.60UnKettering Health DaytonComment on above:Performed By: #### [id number] ####[facility] ([facility])[address] [place] [address] COMPREHENSIVE METABOLIC PANELon 60-91-4300Yxvyzpk [Mass/Vol]3.5 g/dLNormal 3.5-5.7UnKettering Health DaytonComment on above:Performed By: #### [id number] #### [facility] ([facility]) [address] [place] [address]GAF [Catalytic activity/Vol]54 U/FUrfnkt50-351NkslbbrqijKettering Health DaytonComment on above:Performed By: #### [id number] #### [facility] ([facility]) [address] [place], [place] [address]URW [Catalytic activity/Vol]16 U/LNormal7-52UnKettering Health DaytonComment on above:Performed By: #### [id number] #### [facility] ([facility]) [address] [place], [place] [address]Jhoeq gap [Moles/Vol]10 mmol/LNormal7-20UnKettering Health DaytonComment on above:Performed By: #### [id number] #### [facility] ([facility]) [address] [place], [place] [address]ZPX [Catalytic activity/Vol]25 U/KMxhtlk05-08EzcxqbloayKettering Health DaytonComment on above:Performed By: #### [id number] #### [facility] ([facility]) [address] [place], [place] [address]Ffvypjpun [Mass/Vol]0.5 mg/dLNormal0.3-1.0UnKettering Health DaytonComment on above:Performed By: #### [id number] #### [facility] ([facility]) [address] [place] [address]Txfodqn [Mass/Vol]8.2 mg/dLLow8.6-10.3UnKettering Health DaytonComment on above:Performed By: #### [id number] #### [facility] ([facility]) [address] [place], [place] [address]Yxvixoot [Moles/Vol]107 mmol/WUqcexz37-369PxceokznofKettering Health DaytonComment on above:Performed By: #### [id number] #### [facility] ([facility]) [address] [place], [place] [address]WW4 [Moles/Vol]26 mmol/EYftejw48-04LwfhaztbukKettering Health DaytonComment on above:Performed By: #### [id number] #### [facility] ([facility]) [address] [place], [place] [address]Xqtqdgyrkr [Mass/Vol]1.85 mg/dLHigh0.70-1.30UnKettering Health DaytonComment on above:Performed By: #### [id number] #### [facility] ([facility]) [address] [place], [place] [address]XPAAYGRPUG FILTRATION RATE ML/MIN/1.73 SQ M.UMDJGIEPV10.3 mL/min/1.73m*2Low>60.0UnKettering Health DaytonComment on above:Result Comment: [facility]???s estimated glomerular filtration rate (eGFR) will [...] group of individuals.Performed By: #### [id number] #### [facility] ([facility]) [address] [place] [place], [place] [address]Rddpdue [Mass/Vol]113 mg/yRHvkf59-953OznuhuzjtyKettering Health DaytonComment on above:Performed By: #### [id number] #### [facility] ([facility]) [address] [place], [place] [address]Gojdnlufm [Moles/Vol]3.6 mmol/LNormal3.5-5.1UnKettering Health DaytonComment on above:Performed By: #### [id number] #### [facility] ([facility]) [address] [facility] [place], [place] [address]Ibgounh [Mass/Vol]5.7 g/dLLow6.0-8.3UnKettering Health DaytonComment on above:Performed By: #### [id number] #### [facility] ([facility]) [address] [facility] [place] [address]Xidsmz [Moles/Vol]139 mmol/UUjjzon893-376KkjwgbmyyzKettering Health DaytonComment on above:Performed By: #### [id number] #### [facility] ([facility]) [address] [place], [place] [address]Urgf nitrogen [Mass/Vol]33 mg/dLHigh7-25UnKettering Health DaytonComment on above:Performed By: #### [id number] #### [facility] ([place]) [address] [place], [place] [address]JBQH NITROGEN/CREATININE (MASS RATIO) IN SER/PLAS17.8Normal [facility] General HospitalComment on above:Performed By: #### [id number] #### [facility] (PASQUALE) [address] [place], [place] [address]WDOPGYPkt [phone] Attestation signed by Olive Bautista MD at [...] I have recommended pt be transferred to [facility] or [facility]. [facility] Mccoy who [...] mg, oral, Every morning glucosamine/chondroitin weber A/C (RXLIVRZEHVP-NMPDFERSPGF-MSW C ORAL) 1 capsule, oral, Daily hydrALAZINE [...] Physical Exam Vitals reviewe (more content not included)...[facility] [id number] contacted pt in regard to shoes that were left in dept. Pt aware and will see if daughter can picker and packer for him. Belongings placed back in lockers. Mariella Henson RN 05/29/25 1412NormalUniversFisher-Titus Medical Center CenterEDNURSMode of arrival (squad #, walk in, police, etc): Walk in Chief complaint(s): Pacemaker issue Arrival Note (brief scenario, treatment BRINE PURIFIER, etc): Finished antibiotics last week and then noticed drainage from the pacemaker area. The area is red and warm to the touch. Stated that it looks like it is pushing out of his skin. Has had the pacemaker for 2 years and recently had this problem a couple months ago. NormalUnSelect Medical TriHealth Rehabilitation Hospital [id number] of Present Illness Chief Complaint Patient presents [...] denies any fever. History provided by: Patient [place] Coma Scale Score: 15 History Medical History[1] [...] he spoke with Dr. Car over at [facility] who agreed to do it today. On re-evaluation, patient is resting comfortably. Results were discussed. Based on the diagnostic results and physical exam[facility] [...] signing this emergency patient record, the Emergency Physician/NET FINISHER/PA-C attests that all entries made into the electronic medical record by the scribe prior to the Physician/NET FINISHER/PA-C signature reflect an accurate accounting of the evaluation and care rendered by that Emergency Physician/NET FINISHER/PA-C. The Emergency Physician/NET FINISHER/PA-C assumes full responsibility for those entries. The Emergency Physician/NET FINISHER/PA-C also attests that any patient testing or [...] Alcohol use: Not Currently ??? Drug use: NeverNormalUniversMercy Health Fairfield HospitalHIGH SENSITIVITY TROPONIN Ion 59-13-5259MZ TROPONIN I (NG/L)71 ng/LCritically high<20UnKettering Health DaytonComment on above:Performed By: #### [id number] ####[facility] LAB (BEAKER)[address] [place], [place] [address]GNYPJO ACID WITH 4 HOUR REFLEXon 17-07-4421WIMBQTT (MMOL/L) IN SER/PLAS0.9 mmol/LNormal0.5-2.2UnKettering Health DaytonComment on above:Performed By: #### [id number] #### [facility] (BEAKER) [address] [place], [place] [address]YLMXUDROFDN WOUND CULTUREon 36-00-0269OHLJZKGZRIY WOUND CULTURE CULTURE RESULTS STAPHYLOCOCCUS AUREUS Few [...] <=^0.5 F Cefazolin S F Susceptibility Comment FNormalSelect Medical TriHealth Rehabilitation HospitalComment on above:Order Comment: Along with Rare Normal Skin [place].Performed By: #### WCSUP #### [facility] (TT) [address] [place] [address] VIRXR CHEST 2 VWSon [id number] CHEST 2 VWSXR CHEST 2 VWS Chest 2 views History: chest wall tenderness Comparison: 03/26/2023 Findings: Chest 2 views. Stable cardiac mediastinal silhouette. 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 Degenerative change ofthe thoracolumbar spine. Impression: No evident acute cardiopulmonary process. Finalized by Lio Licea MD on 04/19/2025 5:19 PMNormalSelect Medical TriHealth Rehabilitation HospitalOffice Visiton [id number]-up [id number] Juan Jose Austin 1940 M Date Provider Department Center 02/23/2025 OLIVE ROBERTSON Family History Problem Relation Age of Onset Heart failure Mother Lung cancer Father Family Status - Relation Status Age at Mother Father Level of Service:42792 [place] OFFICE/OUTPATIENT ESTABLISHED LOW MDM [facility] 32-18-7515Lknbqy-up visit [id number] Juan Jose Austin 1940 M Date Provider Department Center 02/17/2025 JESSICA ALEJANDRO Hos Family History Problem Relation Age of Onset Heart failure Mother Lung cancer Father Family Status - Relation Status Age at Mother Father Level of Service:[address]654 [place] OFFICE/OUTPATIENT ESTABLISHED LOW MDM 20 [facility] CenterOffice Visiton 43-64-3031Qgnixa-up visit [id number] Juan Jose Austin 1940 M Date Provider Department Center 02/02/2025 OLIVE ROBERTSON Family History Problem Relation Age of Onset Heart failure Mother Lung cancer Father Family Status - Relation Status Age at Mother Father Level of Service:[address]348 [place] OFFICE/OUTPATIENT ESTABLISHED LOW MDM 20 MINNoFayette County Memorial HospitalTISSUE CULTUREon 32-88-7395Urhlrnla identified Cx Nom (Unsp spec)STAPHYLOCOCCUS AUREUSAbnormalUniMercer County Community HospitalCominsight surgical hospital on above:Result Comment: Rare Growth Staphylococcus aureus For Susceptibility Results Please Refer to By: #### [id number] ####[facility] ([facility])[address] [place] [address]MMLJ STAIN RESULTNormalUniversMercy Health Fairfield HospitalComment on above:Result Comment: Rare Polymorphonuclear leukocytes No organisms seenPerformed By: #### [id number] ####[facility] ([facility])[address] [place], [place] [address]HPBLW CULTUREon 22-61-1817Wztymkwsgux [Susc]<=0.5 ResistantUnKettering Health DaytonComment on above:Performed By: #### [id number] #### [facility] ([facility]) [address] [facility] [place] [address]Hiejrmnrv [Susc]<=0.25SusceptibleUnKettering Health DaytonComment on above:Performed By: #### [id number] #### [facility] ([facility]) [address] [facility] [place] [address]Tvttdnkrekhr [Susc]<=0.5SusceptibleUnKettering Health DaytonComment on above:Performed By: #### [id number] #### [facility] ([facility]) [address] [facility] [place] [address]Tipzfahzjsht+Sulfamethoxazole [Susc]<=0.5/9.5Susceptible [facility] General HospitalComment on above:Performed By: #### [id number] #### [facility] ([facility]) [address] [place], [place] [address]Orpzarkgkh [Susc]2 ug/mlSusceptibleUnKettering Health DaytonComment on above:Performed By: #### [id number] #### [facility] (BEAKER) [address] [place] [address]PFig [id number] Electrophysiology Consult Note Reason for visit: S/P [...] moderate, relieved by rest. He was evaluated [facility] ED and his CBC, BMP, BNP, [...] artifact is not c (more content not included)...NormalOhioHealth Marion General HospitalNURSNOTEon 01-21-2025 NURSNOTERN educated pt on d/c [...] wheeled off of unit with all of belongings.NormalOhioHealth Marion General HospitalNURSNOTECHG wipes and betadine nasal swabs completed.Normal [facility] HospitalBasic Metabolic Panelon 55-08-4277Mkotb gap [Moles/Vol]9 mmol/L9 - 16 mmol/LBon Secours Medical Connections HealthCalcium [Mass/Vol]8.9 mg/dL8.6 - 10.4 mg/dLBon Secours Medical Connections HealthChloride [Moles/Vol]106 mmol/L98 - 107 mmol/LBon Secours Medical Connections HealthCO2 [Moles/Vol]26 mmol/L20 - 31 mmol/LBon SecParallelsCreatinine [Mass/Vol]2.0 mg/dLHigh0.70 - 1.20 mg/dLBon Secours Medical Connections HealthEst, Glomelvin Filt Vqnu89Wkz- PINFBon SecParallels Comment on above: These results are not [...] secretion. Glucose [Mass/Vol]88 mg/dL74 - 99 mg/dLBon [facility] Health Washington TownshipInterpretation and review of laboratory resultsAbnormalRiverside Walter Reed HospitalPotassium [Moles/Vol]4.5 mmol/L3.7 - 5.3 mmol/LBon [facility] Washington TownshipSodium [Moles/Vol] 141 mmol/L136 - 145 mmol/LBon [facility] Washington TownshipUrea nitrogen [Mass/Vol]31 mg/dLHigh8 - 23 mg/dLBon [facility] Washington TownshipUrea nitrogen/Creatinine [Mass ratio]16 mg/mg9 - 20Bon [facility] HospitalBasic Metabolic Profon 52-30-4168Wxaop gap [Moles/Vol]9 mmol/LNormal9-16[facility] Hospital CompanyComment on above:Performed By: #### TIP, BMP #### [address] [place] [address] Livestock Counter: Augusto Sidhu MDBUN/CRE Enjon10Dfwcpe8-08Dzoyq [facility] Comment on above:Performed By: #### TIP, BMP #### [address] [place] [address] Livestock Counter: SHEREE Olivasalcium [Mass/Vol]8.9 mg/dLNormal8.6-10.4[facility] Hospital CompanyComment on above:Performed By: #### TIP, BMP #### [address] [place] [address] Livestock Counter: Augusto Sidhu MDChloride [Moles/Vol]106 mmol/ENgapbl51-886TruvpRegency Hospital CompanyComment on above:Performed By: #### CDP, BMP #### [address] [place] [address] Livestock Counter: SHEREE OlivasO2 [Moles/Vol]26 mmol/JJmcbpx89-08MlieyRegency Hospital CompanyComment on above:Performed By: #### TIP, BMP #### [address] [place] [address] Livestock Counter: SHEREE Olivasreatinine [Mass/Vol]2.0 mg/dLHigh0.70-1.20[facility] Hospital CompanyComment on above:Performed By: #### TIP, BMP #### [address] [place] [address] Livestock Counter: Augusto Sidhu MDGFR/1.73 sq M.predicted among non-blacks MDRD (S/P/Bld) [Vol rate/Area]33 mL/min/{1.73_m2}Low>60[facility] Hospital CompanyComment on above:Result Comment: These results are not [...] tubular secretion.Performed By: #### TIP, BMP #### [address] [place] [address] Livestock Counter: Augusto Sidhu MDGlucose [Mass/Vol]88 mg/rTMwgsty24-38HgextKeenan Private HospitalComment on above:Performed By: #### TIP, BMP #### [address] [place] [address] Livestock Counter: JEREMY Olivasotassium [Moles/Vol]4.5 mmol/LNormal3.7-5.3MPremier Health Atrium Medical Center HospitalComment on above:Performed By: #### CDP, BMP #### [facility] [address] [place] [address] Livestock Counter: ROCIO Olivasodium [Moles/Vol]141 mmol/MStdito589-657ElxqjRegency Hospital CompanyComment on above:Performed By: #### CDP, BMP #### [facility] [address] [place] [address] Livestock Counter: Augusto Sidhu MDUrea nitrogen [Mass/Vol]31 mg/dLHigh8-23[facility] Hospital CompanyComment on above:Performed By: #### TIP, BMP #### [facility] [address] [place] [address] Livestock Counter: Augusto Sidhu MDCBC with Auto Differentialon 17-77-0429Kdhzoifyj (Bld) [#/Vol]0.09 10*3/uLBon Secours Mercy HealthBasophils/100 WBC [...] (RBC) [Entitic mass]27.7 pg25.2 - 33.5 pgBon Dayton Osteopathic HospitalHC (RBC) [Mass/Vol]32 g/dL28.4 - 34.8 g/dLBon [facility] MCV (RBC) [Entitic vol]86.6 fL82.6 - 102.9 fLRiverside Walter Reed Hospital Monocytes/100 WBC (Bld)6 %3 - 12 %[facility] HospitalMonocytes/100 WBC (Bld)0.47 %[facility] HospitalNeutrophils/100 WBC (Bld)82 %High36 - 65 %[facility] HospitalNucleated RBC/100 WBC (Bld) [Ratio]0 %0.0 per 100 WBCRiverside Walter Reed HospitalPlatelet mean volume (Bld) [Entitic vol]9.3 fL8.1 - 13.5 fL [facility] HospitalPlatelets (Bld) [#/Vol]251 10*3/uLRiverside Walter Reed HospitalRBC (Bld) [#/Vol]4.19 10*6/uLLow4.21 - 5.77 m/[facility] Segmented neutrophils/100 WBC (Bld)6.64 %[facility] Reed HospitalWBC other (Bld) [#/Vol]8.1Bon [facility] HospitalCBC with Diffon 28-48-2932Sdx. Basophil0.09 k/uLNormal0.00-0.20[facility] Hospital CompanyComment on above:Performed By: #### TIP, BMP #### [address] [place] [address] Livestock Counter: Trevor Olivas.Imm.Granulocyte0.03 k/uLNormal0.00-0.30[facility] Hospital CompanyComment on above:Performed By: #### TIP, BMP #### [address] [place] [address] Livestock Counter: Trevor Olivas.Neutrophil (Seg)6.64 k/uLNormal1.50-8.10[facility] HospitalComment on above:Performed By: #### CDP, BMP #### [address] [place] [address] Livestock Counter: Augusto Sidhu MDBasophils/100 WBC (Bld)1 %Normal0-2Mer[facility] Estill HospitalComment on above:Performed By: #### CDP, BMP #### [address] [place] [address] Livestock Counter: Augusto Sidhu MDEosinophils (Bld) [#/Vol]0.14 10*3/uLNormal 0.00-0.44[facility] HospitalComment on above:Performed By: #### CDP, BMP #### [address] [place] [address] Livestock Counter: MOLLY Olivasosinophils/100 WBC (Bld)2 %Normal1-4[facility] HospitalComment on above:Performed By: #### CDP, BMP #### [address] [place] [address] Livestock Counter: Augusto Sidhu MDErythrocyte distribution width (RBC) [Ratio]14.8 % High11.8-14.4[facility] HospitalComment on above:Performed By: #### CDP, BMP #### [address] [place] [address] Livestock Counter: Augusto Sidhu MDHematocrit (Bld) [Volume fraction]36.3 %Low 40.7-50.3[facility] hospitaly Estill HospitalComment on above:Performed By: #### CDP, BMP #### [address] [place] [id number] Livestock Counter: Augusto Sidhu MDHemoglobin (Bld) [Mass/Vol]11.6 g/dLLow13.0-17.0 [facility] Est[facility] HospitalComment on above:Performed By: #### CDP, BMP #### [address] [place] [address] Livestock Counter: Mariel Olivasture granulocytes/100 WBC (Bld)0 %Bwcumt3Gxsiv [facility] HospitalComment on above:Performed By: #### CDP, BMP #### [address] [place], [place] [address] Livestock Counter: Gay Olivasmphocytes (Bld) [#/Vol]0.75 10*3/uLLow1.10-3.70 [facility] HospitalComment on above:Performed By: #### CDP, BMP #### [address] [place], [facility]83 Livestock Counter: Gay Olivasmphocytes/100 WBC (Bld)9 %Gau52-41Ciibf [facility] HospitalComment on above:Performed By: #### CDP, BMP #### [address] [place] [address] Livestock Counter: DANDRE Olivas (RBC) [Entitic mass]27.7 svEfrfet86.2-33.5 [facility] HospitalComment on above:Performed By: #### CDP, BMP #### [address] [place], [facility]83 Livestock Counter: DANDRE OlivasC (RBC) [Mass/Vol]32.0 g/rJWqrstt57.4-34.8[facility] HospitalComment on above:Performed By: #### CDP, BMP #### [address] [place], [place] [address] Livestock Counter: LORNA OlivasCV (RBC) [Entitic vol]86.6 yJLhtitc32.6-102.9 [facility] HospitalComment on above:Performed By: #### CDP, BMP #### [address] [place] [address] Livestock Counter: LORNA Olivasonocytes (Bld) [#/Vol]0.47 10*3/uLNormal0.10-1.20 [facility] Hospital CompanyComment on above:Performed By: #### CDP, BMP #### [address] [place], [place] [address] Livestock Counter: LORNA Olivasonocytes/100 WBC (Bld)6 %Normal3-12[facility] Hospital CompanyComment on above:Performed By: #### CDP, BMP #### [address] [place] [address] Livestock Counter: Navin Olivasutrophil (Seg)82 %Plcb27-30QpkauRegency Hospital Company Comment on above:Performed By: #### CDP, BMP #### [address] [place] [address] Livestock Counter: Augusto Sidhu MDNRBC Automated0.0 per 100 WBCNormal0.0[facility] Hospital CompanyComment on above:Performed By: #### CDP, BMP #### [address] [place] [address] Livestock Counter: Micah Olivas mean volume (Bld) [Entitic vol]9.3 fL Normal8.1-13.5[facility] Hospital CompanyComment on above:Performed By: #### CDP, BMP #### [address] [place], [place] [address] Livestock Counter: JEREMY Olivaslatelets (Bld) [#/Vol]251 10*3/sBVynwzt701-892 [facility] CompanyComment on above:Performed By: #### CDP, BMP #### [address] [place] [address] Livestock Counter: ABEL Olivas ([facility]) [#/Vol]4.19 10*6/uLLow4.21-5.77Mercy Estill HospitalComment on above:Performed By: #### CDP, BMP #### [facility] [address] [place] [address] Livestock Counter: PANDA Olivas ([facility]) [#/Vol]8.1 10*3/uLNormal3.5-11.3Mer[facility] Estill HospitalComment on above:Performed By: #### CDP, BMP #### [facility] [address] [place], [place] [address] Livestock Counter: Augusto Sidhu MDOffice Visiton 71-98-9756Nzhhta-up [id number] Juan Jose Austin 1940 M Date Provider Department Center 01/19/2025 OLIVE ROBERTSON INESSA Clements Family History Problem Relation Age of Onset Heart failure Mother Lung cancer Father Family Status - Relation Status Age at Mother Father Level of Service:35564 [place] OFFICE/OUTPATIENT ESTABLISHED LOW MDM 20 [facility] CenterOrders Onlyon 34-22-3636Ajpvqd [id number] Juan Jose Austin 1940 M Date Provider Department Center 01/19/2025 ROMEL LANDEROS INESSA Clements Family History Problem Relation Age of Onset Heart failure Mother Lung cancer Father Family Status - Relation Status Age at Mother Father DeceasedNormalUniversMercy Health Fairfield HospitalOffice Visiton 84-59-1361Bhhoft-up [id number] Juan Jose Austin 1940 M Date Provider Department Center 01/08/2025 KEVEN PULIDO INESSA Morrison [facility] Family History Problem Relation Age of Onset Heart failure Mother Lung cancer Father Family Status - Relation Status Age at Mother Father Level of Service:198[address] [place] OFFICE/OUTPATIENT ESTABLISHED MOD MDM 30 [facility] CenterCult,Woundon 54-71-1483Cxsj,WoundSpecimen Description .ABSCESS .CHEST SWAB Direct Exam NO [...] consideration. Tetracycline <=1 SUSCEPTIBLE Trimethoprim/Sulfa <=10 SUSCEPTIBLESusceptibleMercy Connecticut Valley HospitalComment on above:Performed By: #### [facility] ####[address] [place] [address] lab Director: Lisset Kramer [id number] () Office ([place]) JUAN JOSE AUSTIN ([id number]) 1940 M Date Time Provider Department 10/23/24 [...] Signed NAME: Juan Jose Austin CLINIC NO.: [id number] DATE OF SERVICE: October 23, 2024 (Eve) [...] - EGD/Colonoscopy: with Dr. Jacob Bear at [facility] Diverticulitis A. Duodenum, biopsy: - [...] to suggest obstruction. 03/22/2024-04/12/2024 - Admitted at [facility] for non-ST elevated myoc (more content not included)...NormalOhioHealth [facility] 05-85-0566AFX [Catalytic activity/Vol]19 U/L10 - 50 U/LBon [facility] [Catalytic activity/Vol]19 U/QTaxxnu32-58ZqlanRegency Hospital CompanyComment on above:Performed By: #### ALT, BMP, AST #### [facility] [address] [place] [address] Livestock Counter: Raphael Olivas 28-31-0495TVN [Catalytic activity/Vol]28 U/L 10 - 50 U/LBon [facility] Health Washington TownshipAST [Catalytic activity/Vol]28 U/FRahtbw44-79 [facility] CompanyComment on above:Performed By: #### ALT, BMP, AST #### [facility] [address] [place] [address] Livestock Counter: Al Olivas Metabolic Panelon 49-55-5499Fvumj gap [Moles/Vol]10 mmol/L9 - 16 mmol/LBon [facility] Uk HealthcareCalcium [Mass/Vol]9.3 mg/dL8.6 - 10.4 mg/dLBon [facility] HealthcareChloride [Moles/Vol]109 mmol/LHigh 98 - 107 mmol/LBon [facility] HealthcareCO2 [Moles/Vol]27 mmol/L20 - 31 mmol/LBon [facility] nWayDominion HospitalCreatinine [Mass/Vol]1.7 mg/dLHigh0.70 - 1.20 mg/dLBon [facility] AdBm TechnologiesEst, Glom Filt Gdlx80Egu- PINFBon [facility] Comment on above: These results are not [...] that affects renal tubular secretion. Glucose [Mass/Vol]101 mg/gTKvvy31 - 99 mg/dLBon St. Jude Medical CenterMycoTechnology Interpretation and review of laboratory resultsAbnormalBon St. Jude Medical CenterMycoTechnology Potassium [Moles/Vol]4.5 mmol/L3.7 - 5.3 mmol/LBon Aurora West HospitalParallelsSodium [Moles/Vol]146 mmol/HEwxm230 - 145 mmol/LBon [facility] Washington TownshipUrea nitrogen [Mass/Vol]35 mg/dLHigh8 - 23 mg/dLBon [facility] Washington TownshipUrea nitrogen/Creatinine [Mass ratio]21 mg/mgHigh9 - 20Bon [facility] TownshipBasic Metabolic Profon 17-60-6944Pncrb gap [Moles/Vol]10 mmol/LNormal9-16[facility] CompanyComment on above:Performed By: #### ALT, BMP, AST #### [address] [place], [place] [address] Livestock Counter: Augusto Sidhu MDBUN/CRE Aafgb97Jrjc1-33TkhpvRegency Hospital Company Comment on above:Performed By: #### ALT, BMP, AST #### [address] [place], [place] [address] Livestock Counter: SHEREE Olivasalcium [Mass/Vol]9.3 mg/dLNormal8.6-10.4[facility] Hospital CompanyComment on above:Performed By: #### ALT, BMP, AST #### [address] [place], [place] [address] Livestock Counter: SHEREE Olivashloride [Moles/Vol]109 mmol/EJtdc43-528XupplRegency Hospital CompanyComment on above:Performed By: #### ALT, BMP, AST #### [address] [place], [place] 9[address]383 Livestock Counter: Augusto Sidhu MDCO2 [Moles/Vol]27 mmol/EZqzvuq43-67DwogzRegency Hospital CompanyComment on above:Performed By: #### ALT, BMP, AST #### [address] [place] [address] Livestock Counter: SHEREE Olivasreatinine [Mass/Vol]1.7 mg/dLHigh0.70-1.20[facility] CompanyComment on above:Performed By: #### ALT, BMP, AST #### [address] [place] [address] Livestock Counter: Augusto Sidhu MDGFR/1.73 sq M.predicted among non-blacks MDRD (S/P/Bld) [Vol rate/Area]40 mL/min/{1.73_m2}Low>60MerClinton Memorial Hospital HospitalComment on above:Result Comment: These results [...] secretion.Performed By: #### ALT, BMP, AST #### [address] [place] [address] Livestock Counter: Augusto Sidhu MDGlucose [Mass/Vol]101 mg/sXGfoa42-10Kashy [facility] HospitalComment on above:Performed By: #### ALT, BMP, AST #### [address] [place] [address] Livestock Counter: JEREMY Olivasotassium [Moles/Vol]4.5 mmol/LNormal3.7-5.3Mercy Estill HospitalComment on above:Performed By: #### ALT, BMP, AST #### [address] [place] [address] Livestock Counter: ROCIO Olivasodium [Moles/Vol]146 mmol/UZxdh064-302XupwxRegency Hospital CompanyComment on above:Performed By: #### ALT, BMP, AST #### [address] [place] [address] Livestock Counter: Augusto Sidhu MDUrea nitrogen [Mass/Vol]35 mg/dLHigh8-23[facility] Hospital CompanyComment on above:Performed By: #### ALT, BMP, AST #### [place] [address] [place], [place] [address] Livestock Counter: Augusto Sidhu MDLipid Panelon 26-38-1844Jwzboibutmu [Mass/Vol]134 mg/dL0 - 199 mg/dLBon [facility] Washington TownshipComment on above: Cholesterol Guidelines: <200 Desirable 200-240 Borderline >240 Undesirable Cholesterol in HDL [Mass/Vol]51 mg/dL40 - PINF mg/dLBon [facility] Comment on above: HDL Guidelines: <40 Undesirable 40-59 Borderline >59 Desirable Cholesterol in LDL [Mass/Vol]65 mg/dL0 - 100 mg/dLBon [facility] [employer] Comment on above: LDL Guidelines: <100 Desirable 100-129 Near to/above Desirable 130-159 Borderline >159 Undesirable Direct (measured) LDL and calculated LDL are not interchangeable tests. Cholesterol in VLDL [Mass/Vol]18 mg/dL1 - 30 mg/dLBon [facility] Cholesterol.total/Cholesterol in HDL [Mass ratio]2.6 {ratio}[facility] Crowd FusionTriglyceride [Mass/Vol]92 mg/dLNINF - 150 mg/dLBon [facility] [employer] Comment on above: Triglyceride Guidelines: <150 Desirable 150-199 Borderline 200-499 High >499 Very high Based on AHA Guidelines for fasting triglyceride, July 2012. [facility] HeyAnitaLipid Profileon 24-50-0993Vqvcimpxnzi [Mass/Vol]134 mg/dLNormal0-199Reg[facility] Hospital CompanyComment on above:Result Comment: Cholesterol Guidelines: <200 Desirable 200-240 Borderline >240 UndesirablePerformed By: #### LIPR ####[facility] [address] [place] [address] Lab Director: SHEREE Kramerholesterol in HDL [Mass/Vol]51 mg/dLNormal>40Reg[facility] Hospital CompanyComment on above:Result Comment: HDL Guidelines: <40 Undesirable 40-59 Borderline >59 DesirablePerformed By: #### LIPR ####[facility] [address] [place], [place] [id number] Lab Director: SHEREE Kramerholesterol in LDL [Mass/Vol]65 mg/dLNormal0-100[facility] Hospital CompanyComment on above:Result Comment: LDL Guidelines: <100 Desirable 100-129 Near to/above Desirable 130-159 Borderline >159 Undesirable Direct (measured) LDL and calculated LDL are not interchangeable tests.Performed By: #### LIPR ####[facility] [address] [place] [phone] Director: SHEREE Kramerholesterol in VLDL [Mass/Vol]18 mg/dLNormal 1-30MerCharlotte Hungerford HospitalComment on above:Performed By: #### LIPR ####[facility] [address] [place] [address] Lab Director: Bebo Kramer.total/Cholesterol in HDL [Mass ratio]2.6 {ratio}Normal [facility] Hospital CompanyComment on above:Performed By: #### LIPR ####[facility] [address] [place] [address] Lab Director: Hung Nguyen MDTriglyceride [Mass/Vol]92 mg/dLNormal<150Reg[facility] Hospital CompanyComment on above:Result Comment: Triglyceride Guidelines: <150 Desirable 150-199 Borderline 200-499 High >499 Very high Based on AHA Guidelines for fasting triglyceride, July 2012.Performed By: #### LIPR ####[employer] [address] [place] [address] Lab Director: Hung Nguyen MDNo Panel Informationon 69-33-5883Cyj Kettering Health Washington TownshipT4, Freeon 55-20-9553Fied T4 [Mass/Vol]1.1 ng/dL0.92 - 1.68 ng/dLBon [facility]urg[facility] Regional HospitalTSHon 92-74-4432Sjlhdjqmtfmkpq and review of laboratory resultsAbnormalSentara Williamsburg Regional Medical Center Qn4.65 m[IU]/L HighBon [facility] Regional HospitalThyroid Stim. Horm.on 09-68-8023Owwvubn Stim. Horm.4.65 uIU/mLHigh0.27-4.20[facility] Comment on above:Performed By: #### TSH ####[address] , [place] [address] Lab Director: Augusto Sidhu MD#### FT4 ####[address] [place], [place] [address] Lab Director: Hung Nguyen MDThyroxine, Freeon 18-96-8095Nitiiidbm, Free1.1 ng/dL Normal0.92-1.68[facility] Hospital CompanyComment on above:Performed By: #### TSH ####[address] , [place] [phone] Director: Augusto Sidhu MD#### FT4 ####[address] [place], [place] [address] Lab Director: Hung Nguyen [facility] W Auto Differential panel (Bld)on 17-92-5264Iloooibha (Bld) [#/Vol]0.05 10*3/uLNINF Miami ClinicBasophils/100 WBC (Bld)0.8 %[facility] JacksonDifferential cell count method Nom (Bld)AutoCleveland ClinicEosinophils (Bld) [#/Vol]0.14 10*3/uL NINFCleveland ClinicEosinophils/100 WBC (Bld)2.4 %[facility] – JacksonErythrocyte distribution width (RBC) [Ratio]14.1 %11.5 - 15.0 %[facility] JacksonHematocrit (Bld) [Volume fraction]39.6 %39.0 - 51.0 %[facility] – JacksonHemoglobin (Bld) [Mass/Vol]13.7 g/dL13.0 - 17.0 g/dLHolzer Medical Center – JacksonImmature granulocytes (Bld) [#/Vol]0.03 10*3/uLNINFHolzer Medical Center – JacksonImmature granulocytes/100 WBC (Bld)0.5 % [facility] JacksonInterpretation and review of laboratory resultsAbnormalCleveland ClinicLymphocytes (Bld) [#/Vol]0.74 10*3/uLLowHolzer Medical Center – JacksonLymphocytes/100 WBC (Bld)12.4 %Wilson HealthH (RBC) [Entitic mass]29.2 pg26.0 - 34.0 pg Wilson HealthHC (RBC) [Mass/Vol]34.6 g/dL30.5 - 36.0 g/dLHolzer Medical Center – Jackson MCV (RBC) [Entitic vol]84.4 fL80.0 - 100.0 fLCKettering Health Behavioral Medical CenterMonocytes (Bld) [#/Vol]0.39 10*3/uLNINFHolzer Medical Center – JacksonMonocytes/100 WBC (Bld)6.6 %[facility] – JacksonNeutrophils (Bld) [#/Vol]4.60 10*3/uLHolzer Medical Center – JacksonNeutrophils/100 WBC (Bld)77.3 %[facility] JacksonNucleated RBC (Bld) [#/Vol]NINFCKettering Health Behavioral Medical Center Nucleated RBC/100 WBC (Bld) [Ratio]0.0 %/100 WBCHolzer Medical Center – JacksonPlatelet mean volume (Bld) [Entitic vol]9.1 fL9.0 - 12.7 fLCKettering Health Behavioral Medical CenterPlatelets (Bld) [#/Vol]168 10*3/uLHolzer Medical Center – JacksonRBC (Bld) [#/Vol]4.69 10*6/uL4.20 - 6.00 m/uL [facility] – JacksonWBC (Bld) [#/Vol]5.95 10*3/uLOhioHealth Grove City Methodist Hospital Basophils (Bld) [#/Vol]0.05 10*3/uLNormal<0.11CHolmes County Joel Pomerene Memorial HospitalComment on above:Order Comment: Specimen Type: BLOOD SPECIMENOrdering Facility: [facility] Address:[address] [place] [address] Performed By: #### 78755-5 ####[facility] LABCLIA [id number] [place], [place] [address]Gweddbjru/100 WBC (Bld)0.8 % NormalPike Community Hospital on above:Order Comment: Specimen Type: BLOOD SPECIMENOrdering Facility: [facility] Address:[address] [place], [place] [address]Performed By: #### 99123-6 ####[facility] LABCLIA [id number] [place] [address] Differential cell count method Nom (Bld)AutoNormalClevelKindred Hospital - Greensboro Comment on above:Order Comment: Specimen Type: BLOOD SPECIMENOrdering Facility: [facility] Address:[address] [place] [address] Performed By: #### 94744-3 ####[facility] LABCLIA [id number] [place], [place] [address]Xntoqmhyydr (Bld) [#/Vol]0.14 10*3/uLNormal<0.46[facility] on above:Order Comment: Specimen Type: BLOOD SPECIMENOrdering Facility: [facility] Address:[address] [place], [place] [address]Performed By: #### 16131-4 ####[facility] LABIA [id number] [place], [place] [address]Gzbocgvzajz/100 WBC (Bld)2.4 %NormalOhioHealth Pickerington Methodist Hospitalment on above:Order Comment: Specimen Type: BLOOD SPECIMENOrdering Facility: [facility] Address:[address] [place], [place] [address]Performed By: #### 58044-2 ####[facility] LABIA [id number] [place], [place] [address]Bhfxrgrarbs distribution width (RBC) [Ratio]14.1 %Gyfqjt54.5-15.0[facility] on above: Order Comment: Specimen Type: BLOOD SPECIMENOrdering Facility: [facility] Address:[address] [place], [place] [address]Performed By: #### 47734- 8 ####[facility] LABIA [id number] [place], [place] [address]Gjdlexvbwb (Bld) [Volume fraction]39.6 %Etwikv49.0-51.0 [facility] on above:Order Comment: Specimen Type: BLOOD SPECIMENOrdering Facility: [facility] Address:[address] [place], [place] [address]Performed By: #### 55604-9 ####[facility] LABIA [id number] [place], [place] [address]Tpqwocsboo (Bld) [Mass/Vol]13.7 g/gRKehnxr18.0-17.0[facility] on above: Order Comment: Specimen Type: BLOOD SPECIMENOrdering Facility: [facility] Address:[address] [place], [place] [address]Performed By: #### 47375- 8 ####[facility] LABIA [id number] [place], [place] [address]Cajhfndz granulocytes (Bld) [#/Vol]0.03 10*3/uLNormal <0.10[facility] on above:Order Comment: Specimen Type: BLOOD SPECIMENOrdering Facility: [facility] Address:[address] [place], [place] [address]Performed By: #### 99608-9 ####[facility] LABIA [id number] [place], [place] [address]Xzeevasi granulocytes/100 WBC (Bld)0.5 %NormalPike Community Hospital on above: Order Comment: Specimen Type: BLOOD SPECIMENOrdering Facility: [facility] Address:[address] [place], [place] [address]Performed By: #### 42524- 8 ####[facility] LABIA [id number] [place], [place] [address]Ujpgozkecsi (Bld) [#/Vol]0.74 10*3/uLLow1.00-4.00 [facility] on above:Order Comment: Specimen Type: BLOOD SPECIMENOrdering Facility: [facility] Address:[address] [place], [place] [address]Performed By: #### 23525-2 ####[facility] LABCLIA [id number] [place], [place] [address]Ffdjzhcwccx/100 WBC (Bld)12.4 %NormalPike Community Hospital on above:Order Comment: Specimen Type: BLOOD SPECIMENOrdering Facility: [facility] Address:[address] [place], [place] [address]Performed By: #### 68049-0 ####[facility] LABCLIA [id number] [place], [place] [address]GWO (RBC) [Entitic mass]29.2 yzCcszar93.0-34.0[facility] on above:Order Comment: Specimen Type: BLOOD SPECIMENOrdering Facility: [facility] Address:[address] [place], [place] [address]Performed By: #### 83626-8 ####[facility] LABCLIA [id number] [place], [place] [address]SPOM (RBC) [Mass/Vol]34.6 g/cELwhpug61.5-36.0[facility] on above: Order Comment: Specimen Type: BLOOD SPECIMENOrdering Facility: [facility] Address:[address] [place], [place] [address]Performed By: #### 97704- 8 ####[facility] LABCLIA [id number] [place], [place] [address]NJA (RBC) [Entitic vol]84.4 aJFuxmzs18.0-100.0[facility] on above:Order Comment: Specimen Type: BLOOD SPECIMENOrdering Facility: [facility] Address:[address] [place], [place] [address]Performed By: #### 04311-5 ####[facility] LABIA [id number] [place], [place] [address]Rmuuykpvo (Bld) [#/Vol]0.39 10*3/uLNormal<0.87[facility] on above:Order Comment: Specimen Type: BLOOD SPECIMENOrdering Facility: [facility] Address:[address] [place], [place] [address]Performed By: #### 35595- 8 ####[facility] LABCLIA [id number] [place], [place] [address]Bwhgefcrz/100 WBC (Bld)6.6 %NormalPike Community Hospital on above:Order Comment: Specimen Type: BLOOD SPECIMENOrdering Facility: [facility] Address:[address] [place], [place] [address]Performed By: #### 81947-9 ####[facility] LABCLIA [id number] [place], [place] [address]Rdtmwxeyyhg (Bld) [#/Vol]4.60 10*3/uLNormal1.45-7.50[facility] on above:Order Comment: Specimen Type: BLOOD SPECIMENOrdering Facility: [facility] Address:[address] [place], [place] [address]Performed By: #### 33844-4 ####[facility] LABCLIA [id number] [place], [place] [address]Qqjqreaafts/100 WBC (Bld)77.3 %NormalPike Community Hospital on above:Order Comment: Specimen Type: BLOOD SPECIMENOrdering Facility: [facility] Address:[address] [place], [place] [address]Performed By: #### 74275-9 ####[facility] LABIA [id number] [place], [place] [address]Jwgfkfuww RBC (Bld) [#/Vol] 10*3/uLNormal<0.01[facility] on above:Order Comment: Specimen Type: BLOOD SPECIMENOrdering Facility: [facility] Address:[address] [place], [place] [address]Performed By: #### 38810-0 ####[facility] LABCLIA [id number] [place], [place] [address]Crzzfyqrc RBC/100 WBC (Bld) [Ratio]0.0 /100 WBCNormal [facility] on above:Order Comment: Specimen Type: BLOOD SPECIMENOrdering Facility: [facility] Address:[address] [place], [place] [address]Performed By: #### 38899-1 ####[facility] LABCLIA [id number] [place], [place] [address]Wojdqqtx mean volume (Bld) [Entitic vol]9.1 fLNormal9.0-12.7CPeoples Hospital on above:Order Comment: Specimen Type: BLOOD SPECIMENOrdering Facility: [facility] Address:[address] [place] [address] Performed By: #### 63575-8 ####[facility] LABCLIA [id number] [place], [place] [address]Dooimvywy (Bld) [#/Vol]168 10*3/fDZidgzq035-531WxbhcyddhPike Community Hospital on above:Order Comment: Specimen Type: BLOOD SPECIMENOrdering Facility: [facility] Address:[address] [place], [place] [address]Performed By: #### 18802-3 ####[facility] LABCLIA [id number] [place], [place] [address]SVY (Bld) [#/Vol]4.69 10*6/uLNormal4.20-6.00[facility] on above:Order Comment: Specimen Type: BLOOD SPECIMENOrdering Facility: [facility] Address:[address] [place], [place] [address]Performed By: #### 60334-1 ####[facility] LABCLIA [id number] [place], [place] [address]GUI (Bld) [#/Vol]5.95 10*3/uLNormal3.70-11.00[facility] Marion General HospitalComment on above: Order Comment: Specimen Type: BLOOD SPECIMENOrdering Facility: [facility] Address:[address] [place], [place] [address]Vpwcaesvr By: #### 50366- 8 ####[facility] LABCLIA [id number] [place], [place] [address]WU ABD/PEL W IVCONon 31-45-5194AF ABD/PEL W IVCON* * *Final Report* * * DATE OF EXAM: Oct 16 2024 9:08AM [facility] 0530 - CT ABD/PEL W [...] any questions regarding this interpretation, please call [phone]. If you are unable to reach us at the number above, please feel free to contact [facility] eRadiology at [phone]. [id number]_IDCSIACNNormalUniversity Hospitals Samaritan Medical Center Abdomen and Pelvis W contrast [place] 85-59-0970LRGXAJWMCC: 1. Stable examination when compared to the [...] any questions regarding this interpretation, please call [phone]. If you are unable to reach us at the number above, please feel free to contact [facility] eRadiology at [phone].DIVISION OF RADIOLOGY* * *Final Report* * * DATE OF EXAM: Oct 16 2024 9:08AM [facility] 0530 - CT ABD/PEL W [...] images: No additional findings. DIVISION OF RADIOLOGYProvider, [facility] [place] - 10/16/2024 * * *Final Report* * * DATE OF EXAM: Oct 16 2024 9:08AM [facility] 0530 - CT ABD/PEL W [...] any questions regarding this interpretation, please call [phone]. If you are unable to reach us at the number above, please feel free to contact [facility] eRadiology at [phone]. [facility] CHEST W IVCONon 85-91-7166BY CHEST W IVCON* * *Final Report* * * DATE OF EXAM: Oct 16 2024 9:08AM [facility] 0539 - CT CHEST W [...] any questions regarding this interpretation, please call [phone]. If you are unable to reach us at the number above, please feel free to contact [facility] eRadiology at [phone]. [id number]_IDCSIACNNormalOhiohealth Marion General HospitalCT Chest W contrast [place] 27-14-2362RUISZZRJGV: 1. Stable subcentimeter pulmonary nodules. Stable top [...] any questions regarding this interpretation, please call [phone]. If you are unable to reach us at the number above, please feel free to contact [facility] at [phone].DIVISION OF RADIOLOGY* * *Final Report* * * DATE OF EXAM: Oct 16 2024 9:08AM [facility] 0539 - CT CHEST W [...] images: No additional findings. DIVISION OF RADIOLOGYProvider, [facility] [place] - 10/16/2024 * * *Final Report* * * DATE OF EXAM: Oct 16 2024 9:08AM [facility] 0539 - CT CHEST W [...] any questions regarding this interpretation, please call [phone]. If you are unable to reach us at the number above, please feel free to contact [facility] eRadiology at [phone]. [facility] – JacksonComprehensive metabolic 2000 panelOrdered By: Elizabeth Cody on 47-07-7309Zdzyzmn [Mass/Vol]4.3 g/dL3.9 - 4.9 g/dLMiami ClinicALP [Catalytic activity/Vol]84 U/L38 - 113 U/LCleveland ClinicALT [Catalytic activity/Vol]19 U/L10 - 54 U/LCleveland ClinicAnion gap [Moles/Vol]10 mmol/L8 - 15 mmol/L [facility] – JacksonAST [Catalytic activity/Vol]25 U/L14 - 40 U/LCleveland [facility] Bilirubin [Mass/Vol]0.9 mg/dL0.2 - 1.3 mg/dLHolzer Medical Center – JacksonCalcium [Mass/Vol] 9.2 mg/dL8.5 - 10.2 mg/dLHolzer Medical Center – JacksonChloride [Moles/Vol]105 mmol/L98 - 107 mmol/LCleveland ClinicCO2 [Moles/Vol]26 mmol/L22 - 30 mmol/LCleveland Clinic Creatinine [Mass/Vol]1.71 mg/dLHigh0.73 - 1.22 mg/dLHolzer Medical Center – JacksonGFR/1.73 sq M.predicted among non-blacks MDRD (S/P/Bld) [Vol [...] eGFRmay not accurately reflect actual GFR.Glucose [Mass/Vol]112 mg/fUFjrh92 - 99 mg/dLHolzer Medical Center – Jackson Comment on above:The [place] Diabetes Association (ADA) provides guidance for cutoff [...] Standards of Medical Care in Diabetes 2016, [place] Diabetes Association. Diabetes Care. 2016.39(Suppl 1). Interpretation and review of laboratory resultsAbnormalCleveland ClinicPotassium [Moles/Vol]4.2 mmol/L3.7 - 5.1 mmol/LCsumma health wadsworth - [facility] medical center ClinicProtein [Mass/Vol]6.4 g/dL 6.3 - 8.0 g/dLTriHealth Good Samaritan Hospitalodium [Moles/Vol]141 mmol/L136 - 144 mmol/L [facility] – JacksonUrea nitrogen [Mass/Vol]32 mg/dLHigh9 - 24 mg/dLKettering Health – Soin Medical CenterComprehensive metabolic 2000 panelon 47-88-2215Tklyeio [Mass/Vol]4.3 g/dLNormal3.9-4.9CHolmes County Joel Pomerene Memorial HospitalComment on above:Order Comment: Specimen Type: BLOOD SPECIMENOrdering Facility: [facility] Address:[address] [place], [place] [address]Performed By: #### 53743- 8 ####[facility] LABCLIA [id number] [place], [place] [address]WHB [Catalytic activity/Vol]84 U/WTtwppr44-283QmdsruyjdPike Community Hospital on above:Order Comment: Specimen Type: BLOOD SPECIMENOrdering Facility: [facility] Address:[address] [place], [place] [address]Performed By: #### 12314-8 ####[facility] LABCLIA [id number] [place], [place] [address]GJT [Catalytic activity/Vol]19 U/TOodrwk07-92IzwzkleffPike Community Hospital on above:Order Comment: Specimen Type: BLOOD SPECIMENOrdering Facility: [facility] Address:[address] [place], [place] [address]Performed By: #### 91693- 8 ####[facility] LABCLIA [id number] [facility] [place], [place] [address]Ajkgk gap [Moles/Vol]10 mmol/LNormal8-15[facility] on above:Order Comment: Specimen Type: BLOOD SPECIMENOrdering Facility: [facility] Address:[address] [place], [place] [address]Performed By: #### 20825-6 ####[facility] LABCLIA [id number] [place], [place] [address]QNL [Catalytic activity/Vol]25 U/FYwzqqo32-21AtkzcpbnqPike Community Hospital on above:Order Comment: Specimen Type: BLOOD SPECIMENOrdering Facility: [facility] Address:[address] [place], [place] [address]Performed By: #### 02105-5 ####[facility] LABCLIA [id number] [place] [address] Bilirubin [Mass/Vol]0.9 mg/dLNormal0.2-1.3CPeoples Hospital on above:Order Comment: Specimen Type: BLOOD SPECIMENOrdering Facility: [facility] Address:[address] [place], [place] [address]Performed By: #### 14906-8 ####[facility] LABCLIA [id number] [place], [place] [address]Lfzasub [Mass/Vol]9.2 mg/dLNormal8.5-10.2CPeoples Hospital on above:Order Comment: Specimen Type: BLOOD SPECIMENOrdering Facility: [facility] Address:[address] [place], [place] [address]Performed By: #### 06504-4 ####[facility] LABCLIA [id number] [place], [place] [address]Qqrbvzdw [Moles/Vol]105 mmol/IZnxgpy04-258XjfvcagcxPike Community Hospital on above: Order Comment: Specimen Type: BLOOD SPECIMENOrdering Facility: [facility] Address:[address] [place], [place] [address]Performed By: #### 81109- 8 ####[facility] LABCLIA [id number] [place], [place] [address]MP9 [Moles/Vol]26 mmol/SGjpmgd22-75VxeltzduiPike Community Hospital on above:Order Comment: Specimen Type: BLOOD SPECIMENOrdering Facility: [facility] Address:[address] [place], [place] [address]Performed By: #### 03943-2 ####[facility] LABCLIA [id number] [place], [place] [address]Kumjwdnmsr [Mass/Vol]1.71 mg/dL High0.73-1.22[facility] on above:Order Comment: Specimen Type: BLOOD SPECIMENOrdering Facility: [facility] Address:[address] [place], [place] [address]Performed By: #### 32994-1 ####[facility] LABCLIA [id number] [place] [address] Creatinine and Glomerular filtration rate.predicted panel (S/P/Bld)39 mL/min/1.73m???Low>=60[facility] on above:Order Comment: Specimen Type: BLOOD SPECIMENOrdering Facility: [facility] Address:[address] [place], [place] [address]Result Comment: Estimated Glomerular Filtration Rate (eGFR) is calculated using the 2020 CKD-EPI creatinine equation. This equation utilizes serum creatinine, sex, and age as parameters. The creatinine assay has traceable calibration to isotope dilution-mass spectrometry. Refer to KDIGO guidelines for clinical interpretation. In patients with unstable renal function, e.g. those with acute kidney injury, the eGFR may not accurately reflect actual GFR.Performed By: #### 00123-7 ####[facility] LABCLIA [id number] [place] [address] Glucose [Mass/Vol]112 mg/iZNkih25-47HemcbkugtPike Community Hospital on above: Order Comment: Specimen Type: BLOOD SPECIMENOrdering Facility: [facility] Address:[address] [place], [place] [address]Result Comment: The [place] Diabetes Association (ADA) provides guidance for cutoff [...] Standards of Medical Care in Diabetes 2016, [place] Diabetes Association. Diabetes Care. 2016.39(Suppl 1).Performed By: #### 12761-8 ####[facility] LABCLIA [id number] [place], [place] [address]Xanwpewrk [Moles/Vol]4.2 mmol/LNormal3.7-5.1CPeoples Hospital on above:Order Comment: Specimen Type: BLOOD SPECIMENOrdering Facility: [facility] Address:[address] [place], [place] [address]Performed By: #### 89363-5 ####[facility] LABCLIA [id number] [place], [place] [address]Oecufrd [Mass/Vol]6.4 g/dLNormal6.3-8.0[facility] on above:Order Comment: Specimen Type: BLOOD SPECIMENOrdering Facility: [facility] Address:[address] [place], [place] [address]Performed By: #### 23637- 8 ####[facility] LABCLIA [id number] [place], [place] [address]Zjamoc [Moles/Vol]141 mmol/ZDgxoey901-999KvjndynelPike Community Hospital on above:Order Comment: Specimen Type: BLOOD SPECIMENOrdering Facility: [facility] Address:[address] [place] [address]Ptrdyangb By: #### 86302-3 ####[facility] LABCLIA [id number] [place], [place] [address]Itbh nitrogen [Mass/Vol]32 mg/dLHigh9-24[facility] on above:Order Comment: Specimen Type: BLOOD SPECIMENOrdering Facility: [facility] Address:[address] [place], [place] [address]Performed By: #### 20985-9 ####[facility] LABCLIA [id number] [place] [address] No Panel Informationon 81-88-0037Beogursfl ClinicRadiology Study observation (narrative)[facility] JacksonOffice Visiton 34-70-3825Zfytfo-up [id number] Juan Jose Austin 1940 M Date Provider Department Center 09/16/2024 JESSICA ALEJANDRO Family History Problem Relation Age of Onset Heart failure Mother Lung cancer Father Family Status - Relation Status Age at Mother Father Level of Service:01353 [place] OFFICE/OUTPATIENT ESTABLISHED LOW MDM 20 MIN Reason for Visit and Comments: Chest Pain [414782]NormalUnKettering [facility] CHEST (2 VW)on [id number] CHEST (2 VW)EXAMINATION: TWO XRAY VIEWS OF THE CHEST 09/10/2024 9:15 pm COMPARISON: 03/22/2024 HISTORY: Pacemaker problem. FINDINGS: Stable left chest pacemaker. Stable cardiomediastinal contours. Left basilar atelectasis/scarring. Right lung is clear. No pleural effusion or pneumothorax. IMPRESSION: Left basilar atelectasis/scarring. Stable pacemaker. Interpreted by: Krunal Damian MD Signed by: Krunal Damian MD 09/10/24 Final resultNormalMerCharlotte Hungerford HospitalXR Chest 2 Viewson [id number] basilar atelectasis/scarring. Stable pacemaker. PN RIS CONSOLIDATEDEXAMINATION: TWO XRAY VIEWS OF THE CHEST 09/10/2024 9:15 pm COMPARISON: 03/22/2024 HISTORY: Pacemaker problem. FINDINGS: Stable left chest pacemaker. Stable cardiomediastinal contours. Left basilar atelectasis/scarring. Right lung is clear. No pleural effusion or pneumothorax. [facility] Krunal Eugene MD - 09/10/2024 EXAMINATION: TWO XRAY VIEWS OF THE CHEST 09/10/2024 9:15 pm COMPARISON: 03/22/2024 HISTORY: Pacemaker problem. FINDINGS: Stable left chest pacemaker. Stable cardiomediastinal contours. Left basilar atelectasis/scarring. Right lung is clear. No pleural effusion or pneumothorax. IMPRESSION: Left basilar atelectasis/scarring. Stable pacemaker. [facility] nWayDominion HospitalRadiology Study observation (narrative)[facility]XR Chest 2 ViewsOrdered By: Krunal Damian on 57-45-7606Wrr [facility] [employer] Work Phone: cbc W Auto Differential panel (Bld)on 08-21-2024 Basophils (Bld) [#/Vol]0.04 10*3/uLNormal<0.11CHolmes County Joel Pomerene Memorial HospitalComment on above:Order Comment: Specimen Type: BLOOD SPECIMEN Ordering Facility: [facility] Address: [address] [place], [place] [address]Performed By: #### 72271-5 #### [facility] CLIA [id number] [address] [place] [address] 07334Sfbdhvfle/100 WBC (Bld)0.7 %NormalOhiohealth Marion General Hospital Comment on above:Order Comment: Specimen Type: BLOOD SPECIMEN Ordering Facility: [facility] Address: [address], [place] [address]Performed By: #### 30747-0 #### [facility] CLIA [id number] [address] [place] [address] 91127Pjgwtgktsedg cell count method Nom (Bld)AutoNormalClevelBellevue Hospital on above:Order Comment: Specimen Type: BLOOD SPECIMEN Ordering Facility: [facility] Address: [address] [place], [place] [address]Performed By: #### 86285-5 #### [facility] CLIA [id number] [address] [place] [address] 54413Mysfishccwh (Bld) [#/Vol]0.19 10*3/uLNormal<0.46[facility] on above:Order Comment: Specimen Type: BLOOD SPECIMEN Ordering Facility: [facility] Address: [address] [place], [place] [address]Performed By: #### 21955-8 #### [facility] CLIA [id number] [address] [place] [address] 37365Hgcuybuocmi/100 WBC (Bld)3.2 %NormalOhiohealth Marion General Hospital Comment on above:Order Comment: Specimen Type: BLOOD SPECIMEN Ordering Facility: [facility] Address: [address] [place], [place] [address]Performed By: #### 50125-3 #### [facility] CLIA [id number] [address] [place] [address] 85215Qktfqemricq distribution width (RBC) [Ratio]14.5 %Normal 11.5-15.0[facility] on above:Order Comment: Specimen Type: BLOOD SPECIMEN Ordering Facility: [facility] Address: [address] [place], [place] [address]Performed By: #### 41694-0 #### [facility] CLIA [id number] [address] [place] [address] 98138Cixcejzbij (Bld) [Volume fraction]39.4 %Biioxp13.0-51.0 [facility] on above:Order Comment: Specimen Type: BLOOD SPECIMEN Ordering Facility: [facility] Address: [address] [place], [place] [address]Performed By: #### 19994-2 #### [facility] CLIA [id number] [address] [place] [address] 09292Doxadynclt (Bld) [Mass/Vol]13.6 g/mFHvqleo13.0-17.0[facility] on above:Order Comment: Specimen Type: BLOOD SPECIMEN Ordering Facility: [facility] Address: [address] [place], [place] [address]Performed By: #### 29988-6 #### [facility] CLIA [id number] [address] [place] [address] 71080Dymeneig granulocytes (Bld) [#/Vol]0.03 10*3/uLNormal<0.10 [facility] on above:Order Comment: Specimen Type: BLOOD SPECIMEN Ordering Facility: [facility] Address: [address] [place], [place] [address]Performed By: #### 07054-2 #### [facility] CLIA [id number] [address] [place] [address] 96070Dowgdkpi granulocytes/100 WBC (Bld)0.5 %NormalPike Community Hospital on above:Order Comment: Specimen Type: BLOOD SPECIMEN Ordering Facility: [facility] Address: [address] [place], [place] [address]Performed By: #### 57403-9 #### [facility] CLIA [id number] [address] [place] [address] 70004Xnwdbxzoidb (Bld) [#/Vol]0.91 10*3/uLLow1.00-4.00[facility] on above:Order Comment: Specimen Type: BLOOD SPECIMEN Ordering Facility: [facility] Address: [address] [place], [place] [address]Performed By: #### 53932-3 #### [facility] CLIA [id number] [address] [place] [address] 30034Bttdwbghaha/100 WBC (Bld)15.1 %NormalPike Community Hospital on above:Order Comment: Specimen Type: BLOOD SPECIMEN Ordering Facility: [facility] Address: [address] [place], [place] [address]Performed By: #### 91391-7 #### [facility] CLIA [id number] [address] [place] [address] 06017FDY (RBC) [Entitic mass]28.8 gbKqvkgi14.0-34.0[facility] on above:Order Comment: Specimen Type: BLOOD SPECIMEN Ordering Facility: [facility] Address: [address] [place], [place] [address]Performed By: #### 31777-0 #### [facility] CLIA [id number] [address] [place] [address] 51261GOJE (RBC) [Mass/Vol]34.5 g/uVEkoexn10.5-36.0[facility] on above:Order Comment: Specimen Type: BLOOD SPECIMEN Ordering Facility: [facility] Address: [address] [place], [place] [address]Performed By: #### 58719-6 #### [facility] CLIA [id number] [address] [place] [address] 68612RYM (RBC) [Entitic vol]83.5 tBKpldfc87.0-100.0[facility] on above:Order Comment: Specimen Type: BLOOD SPECIMEN Ordering Facility: [facility] Address: [address] [place], [place] [address]Performed By: #### 20157-1 #### [facility] CLIA [id number] [address] [place] [address] 32704Unbvoeejr (Bld) [#/Vol]0.39 10*3/uLNormal<0.87[facility] on above:Order Comment: Specimen Type: BLOOD SPECIMEN Ordering Facility: [facility] Address: [address] [place], [place] [address]Performed By: #### 92354-1 #### [facility] CLIA [id number] [address] [place], [place] [address]Irfbeixtl/100 WBC (Bld)6.5 %NormalOhiohealth Marion General Hospital Comment on above:Order Comment: Specimen Type: BLOOD SPECIMEN Ordering Facility: [facility] Address: [address] [place], [place] [address]Performed By: #### 24535-6 #### [facility] CLIA [id number] [address] [place], [place] [address]Ibqwqaszypc (Bld) [#/Vol]4.45 10*3/uLNormal1.45-7.50[facility] on above:Order Comment: Specimen Type: BLOOD SPECIMEN Ordering Facility: [facility] Address: [address] [place], [place] [address]Performed By: #### 73491-6 #### [facility] CLIA [id number] [address] [place] [address] 78378Wxcjhvdmxmd/100 WBC (Bld)74.0 %NormalPike Community Hospital on above:Order Comment: Specimen Type: BLOOD SPECIMEN Ordering Facility: [facility] Address: [address] [place], [place] [address]Performed By: #### 43949-7 #### [facility] CLIA [id number] [address] [place] [address] 55354Itftraann RBC (Bld) [#/Vol]10*3/uLNormal<0.01[facility] on above:Order Comment: Specimen Type: BLOOD SPECIMEN Ordering Facility: [facility] Address: [address] [place], [place] [address]Performed By: #### 73575-3 #### [facility] CLIA [id number] [address] [place] [address] 25448Phexeilnp RBC/100 WBC (Bld) [Ratio]0.0 /100 WBCNormalCPeoples Hospital on above:Order Comment: Specimen Type: BLOOD SPECIMEN Ordering Facility: [facility] Address: [address] [place], [place] [address]Performed By: #### 58844-4 #### [facility] CLIA [id number] [address] [place], [place] [address]Clmtyieg mean volume (Bld) [Entitic vol]9.1 fLNormal9.0-12.7 [facility] on above:Order Comment: Specimen Type: BLOOD SPECIMEN Ordering Facility: [facility] Address: [address] [place], [place] [address]Performed By: #### 69943-3 #### [facility] CLIA [id number] [address] [place], [place] [address]Wujdhaocr (Bld) [#/Vol]166 10*3/tSFpzzas871-246PskcbvicmPike Community Hospital on above:Order Comment: Specimen Type: BLOOD SPECIMEN Ordering Facility: [facility] Address: [address] [place], [place] [address]Performed By: #### 15942-1 #### [facility] CLIA [id number] [address] [place] [address] 04685LOZ (Bld) [#/Vol]4.72 10*6/uLNormal4.20-6.00[facility] on above:Order Comment: Specimen Type: BLOOD SPECIMEN Ordering Facility: [facility] Address: [address] [place], [place] [address]Performed By: #### 87581-4 #### [facility] CLIA [id number] [address] [place] [address] 53950BWL (Bld) [#/Vol]6.01 10*3/uLNormal3.70-11.00[facility] on above:Order Comment: Specimen Type: BLOOD SPECIMEN Ordering Facility: [facility] Address: [address] [place], [place] [address]Performed By: #### 70116-3 #### [facility] CLIA [id number] [address] [place] [address] 48523OAWTEUwy 40-37-7496CJWHROOhihm (SP) Office ([place]) DUC AUSTINQamar Watson ([id number]) 1940 Date Time Provider Department 08/21/24 9:40 [...] AM Signed NAME: Duc Austino CLINIC NO.: [id number] DATE OF SERVICE: [facility] Some elements in this clinic note that [...] - EGD/Colonoscopy: with Dr. Jacob Bear at [facility] Diverticulitis A. Duodenum, biopsy: - [...] to suggest obstruction. 03/22/2024-04/12/2024 - Admitted at [facility] for non-ST elevated myocardial infarction and diarrhea 02/05/2024-02/07/2024 - Admitted at 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 Given the imaging appearance and short-term development, these may be infectious/inflammatory in etiology. Therefore, would advise a shor (more content not included)...NormalOhioHealth Pickerington Methodist Hospitalprehensive metabolic 2000 panelon 49-99-7186Nlhdgxf [Mass/Vol]4.1 g/dLNormal3.9-4.9CPeoples Hospital on above:Order Comment: Specimen Type: BLOOD SPECIMENOrdering Facility: [facility] Address:[address] [place], [place] [address]Performed By: #### 81610-8 ####[facility] LABCLIA [id number] [place], [place] [address]SMU [Catalytic activity/Vol]84 U/ERtqwys98-653BooufxfzvP[facility] Hospital on above:Order Comment: Specimen Type: BLOOD SPECIMENOrdering Facility: [facility] Address:[address], [place] [address]Performed By: #### 21705-9 ####[facility] LABCLIA [id number] [place], [place] [address]IKY [Catalytic activity/Vol]20 U/AEbdoul70-87BcdyiyxtzPike Community Hospital on above:Order Comment: Specimen Type: BLOOD SPECIMENOrdering Facility: [facility] Address:[address], [place] [address]Performed By: #### 07236-0 ####[facility] LABCLIA [id number] [place], [place] [address]Kyljx gap [Moles/Vol]9 mmol/LNormal8-15[facility] on above:Order Comment: Specimen Type: BLOOD SPECIMENOrdering Facility: [facility] Address:[address] [place], [place] [address]Performed By: #### 67653- 8 ####[facility] LABCLIA [id number] [facility] [place], [place] [address]OWR [Catalytic activity/Vol]28 U/TNxdqit75-50WkgiwmgydPike Community Hospital on above:Order Comment: Specimen Type: BLOOD SPECIMENOrdering Facility: [facility] Address:[address] [place], [place] [address]Performed By: #### 18207-3 ####[facility] LABCLIA [id number] [place], [place] [address]Xicilllsk [Mass/Vol]0.6 mg/dLNormal0.2-1.3CPeoples Hospital on above:Order Comment: Specimen Type: BLOOD SPECIMENOrdering Facility: [facility] Address:[address] [place], [place] [address]Performed By: #### 68026- 8 ####[facility] LABCLIA [id number] [facility] [place], [place] [address]Unciszy [Mass/Vol]8.9 mg/dLNormal8.5-10.2CPeoples Hospital on above:Order Comment: Specimen Type: BLOOD SPECIMENOrdering Facility: [facility] Address:[address] [place], [place] [address]Performed By: #### 90402-2 ####[facility] LABCLIA [id number] [place] [address]Wwdgovjf [Moles/Vol]106 mmol/L Mdhtmg83-121KbkbguxiePike Community Hospital on above:Order Comment: Specimen Type: BLOOD SPECIMENOrdering Facility: [facility] Address:[address] [place], [place] [address]Performed By: #### 13617-3 ####[facility] LABCLIA [id number] [place] [address] CO2 [Moles/Vol]26 mmol/ALritgf19-59ApzeptkcjPike Community Hospital on above: Order Comment: Specimen Type: BLOOD SPECIMENOrdering Facility: [facility] Address:[address] [place], [place] [address]Performed By: #### 70745- 8 ####[facility] LABCLIA [id number] [place], [place] [address]Rdorbpddtq [Mass/Vol]1.72 mg/dLHigh0.73-1.22[facility] on above:Order Comment: Specimen Type: BLOOD SPECIMENOrdering Facility: [facility] Address:[address] [place], [place] [address]Performed By: #### 23469-8 ####[facility] LABIA [id number] [place], [place] [address]Pdxcumqvdv and Glomerular filtration rate.predicted panel (S/P/Bld)38 mL/min/1.73m???Low>=60 [facility] on above:Order Comment: Specimen Type: BLOOD SPECIMENOrdering Facility: [facility] Address:[address] [place], [place] [address]Result Comment: Estimated Glomerular Filtration Rate (eGFR) is calculated using the 2020 CKD-EPI creatinine equation. This equation utilizes serum creatinine, sex, and age as parameters. The creatinine assay has traceable calibration to isotope dilution-mass spectrometry. Refer to KDIGO guidelines for clinical interpretation. In patients with unstable renal function, e.g. those with acute kidney injury, the eGFR may not accurately reflect actual GFR.Performed By: #### 32874-9 ####[facility] LABCLIA [id number] [place], [place] [address]Javbobx [Mass/Vol]102 mg/hVEzxm78-40VdnjbugxzPike Community Hospital on above:Order Comment: Specimen Type: BLOOD SPECIMENOrdering Facility: [facility] Address:[address] [place], [place] [address]Result Comment: The [place] Diabetes Association (ADA) provides guidance for cutoff [...] Standards of Medical Care in Diabetes 2016, [place] Diabetes Association. Diabetes Care. 2016.39(Suppl 1).Performed By: #### 80929-7 ####[facility] LABCLIA [id number] [place], [place] [address]Nckrgajjn [Moles/Vol]4.6 mmol/LNormal3.7-5.1CPeoples Hospital on above:Order Comment: Specimen Type: BLOOD SPECIMENOrdering Facility: [facility] Address:[address] [place], [place] [address]Performed By: #### 52002-8 ####[facility] LABCLIA [id number] [place], [place] [address]Gebhevy [Mass/Vol]6.1 g/dLLow6.3-8.0[facility] on above:Order Comment: Specimen Type: BLOOD SPECIMENOrdering Facility: [facility] Address:[address] [place], [place] [address]Performed By: #### 79179- 8 ####[facility] LABCLIA [id number] [place], [place] [address]Eclgam [Moles/Vol]141 mmol/FHyulhm389-757XwaohyilzPike Community Hospital on above:Order Comment: Specimen Type: BLOOD SPECIMENOrdering Facility: [facility] Address:[address] [place], [place] [address]Performed By: #### 54324-8 ####[facility] LABCLIA [id number] [place], [place] [address]Bbyy nitrogen [Mass/Vol]34 mg/dLHigh9-24[facility] on above:Order Comment: Specimen Type: BLOOD SPECIMENOrdering Facility: [facility] Address:[address] [place], [place] [address]Performed By: #### 74821-1 ####[facility] LABCLIA [id number] [place] [address] Cortis SerPl-mCncon 27-47-7042Bmlqqxrd [Mass/Vol]6.0 ug/dLNormal4.8-19.5 [facility] on above:Order Comment: Specimen Type: BLOOD SPECIMENOrdering Facility: [facility] Address:[address] [place], [place] [address]Result Comment: Provided reference range is from 6-10 AM sample collection time. Cortisol Reference Range: 6-10 AM = 4.8-19.5 ug/dL, 4-8 PM = 2.5-11.9 ug/dL Performed By: #### 3016-3, 2143-6 ####[place] [facility]CL[facility] [id number] [facility] [id number] [facility] HbA1c (Bld)on 70-60-4330Sasmqry glucose Estimated from glycated hemoglobin (Bld) [Mass/Vol]97 mg/dLNormalCPeoples Hospital on above:Order Comment: Specimen Type: BLOOD SPECIMENOrdering Facility: [facility] Address:[address] [place], [place] [address]Result Comment: eAG: (Estimated average glucose) is a calculated value from HgbA1c and is representa tive of the average blood glucose level in the last 2-3 month period.Performed By: #### 41035-8 ####[place] LABCLIA [id number] [place] [address] [place] SLFBIXGOjZ2d (Bld) [Mass fraction]5.0 %Normal4.3-5.6CPeoples Hospital on above:Order Comment: Specimen Type: BLOOD SPECIMENOrdering Facility: [facility] Address:[address] [place], [place] [address]Result Comment: [place] Diabetes Association guidelines indicate that patients with HgbA1c in the range 5.7-6.4% are at increased risk for development of diabetes, and intervention by lifestyle modification may be beneficial. HgbA1c greater or equal to 6.5% is considered diagnostic of diabetes.Performed By: #### 67567-5 ####[facility] [id number] [place] [address] [place] HOLZER HOSPITALTS SerPl-aCncon 21-21-0871IZO Qn2.260 m[IU]/L Normal0.270-4.200[facility] on above:Order Comment: Specimen Type: BLOOD SPECIMENOrdering Facility: [facility] Address:[address] [place], [place] [address]Performed By: #### 3016-3, 2143-6 ####[facility] [id number] [place] [address] [place] AMERICACT ABD/PEL W IVCONon 41-21-1250QA ABD/PEL W IVCON* * *Final Report* * * DATE OF EXAM: Jun 29 2024 9:00AM [facility] 0530 - CT ABD/PEL W [...] performed concurrently and will be dictated separately. Clinical Research Associate (topogram) images: No additional findings. IMPRESSION: Stable [...] any questions regarding this interpretation, please call [phone]. If you are unable to reach us at the number above, please feel free to contact [facility]Radiology at [phone]. [id number] Hospitals Samaritan Medical Center Abdomen and Pelvis W contrast [place] 96-29-2392UIZFHXALES: Stable CT examination the abdomen and pelvis [...] any questions regarding this interpretation, please call [phone]. If you are unable to reach us at the number above, please feel free to contact [facility]Radiology at [phone].DIVISION OF RADIOLOGY* * *Final Report* * * DATE OF EXAM: Jun 29 2024 9:00AM [facility] 0530 - CT ABD/PEL W [...] performed concurrently and will be dictated separately. Clinical Research Associate (topogram) images: No additional findings. DIVISION OF RADIOLOGYProvider, [facility] [place] - 06/29/2024 * * *Final Report* * * DATE OF EXAM: Jun 29 2024 9:00AM [facility] 0530 - CT ABD/PEL W [...] performed concurrently and will be dictated separately. Clinical Research Associate (topogram) images: No additional findings. IMPRESSION IMPRESSION: [...] any questions regarding this interpretation, please call [phone]. If you are unable to reach us at the number above, please feel free to contact [facility]iology at [phone]. [facility] CHEST W IVCONon 43-82-4094QS CHEST W IVCON* * *Final Report* * * DATE OF EXAM: Jun 29 2024 9:00AM [facility] 0539 - CT CHEST W [...] performed concurrently and will be dictated separately. Clinical Research Associate (topogram) images: No additional findings. IMPRESSION: 1. [...] any questions regarding this interpretation, please call [phone]. If you are unable to reach us at the number above, please feel free to contact [facility]Radiology at [phone]. [id number]_IDCSIACNNormalUniversity Hospitals Samaritan Medical Center Chest W contrast [place] 41-44-5544NKAIAITDGN: 1. Mild soft tissue prominence at the [...] any questions regarding this interpretation, please call [phone]. If you are unable to reach us at the number above, please feel free to contact [facility] at [phone].DIVISION OF RADIOLOGY* * *Final Report* * * DATE OF EXAM: Jun 29 2024 9:00AM [facility] 0539 - CT CHEST W [...] performed concurrently and will be dictated separately. Clinical Research Associate (topogram) images: No additional findings. DIVISION OF RADIOLOGYProvider, [facility] [place] - 06/29/2024 * * *Final Report* * * DATE OF EXAM: Jun 29 2024 9:00AM [facility] 0539 - CT CHEST W [...] performed concurrently and will be dictated separately. Clinical Research Associate (topogram) images: No additional findings. IMPRESSION IMPRESSION: [...] any questions regarding this interpretation, please call [phone]. If you are unable to reach us at the number above, please feel free to contact [facility] at [phone]. [facility] Panel InformationOrdered By: Ccf Provider on 06-29-2024 [facility] Panel Informationon 09-89-7392Ynewualrc Study observation (narrative)[facility] JacksonCNOVSPon 72-73-8019UWSYVHLbzje (SP) Office ([place]) JUAN JOSE AUSTIN ([id number]) 1940 M Date Time Provider Department 05/18/24 1:00 PM GRAEME VAZQUEZ During your visit today, we recorded the following information about you: Temperature Pulse Respiration Blood pressure 97.1 degrees 66/minute 16/minute 121/63 Weight Height 68.7 kg 1.62 m Graeme Vazquez MD 05/19/2024 11:18 AM Signed NAME: Juan Jose Austin NO.: [id number] DATE OF SERVICE: May 18, 2024 (Eve) [...] to suggest obstruction. 03/22/2024-04/12/2024 - Admitted at [facility] for non-ST elevated myocardial infarction and diarrhea 02/05/2024-02/07/2024 - Admitted at 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 This is (more content not included)...NormalPark[facility] 2000 panelon [id number] [Mass/Vol]4.1 g/dLNormal3.9-4.9CPeoples Hospital on above:Order Comment: Specimen Type: BLOOD SPECIMENOrdering Facility: [facility] Address:[address] [place], [place] [address]Performed By: #### 24230-1 ####[facility] LABCLIA [id number] [facility] [place], [place] [address]SLV [Catalytic activity/Vol]109 U/JDegxkj64-314PuxqqfukgPike Community Hospital on above:Order Comment: Specimen Type: BLOOD SPECIMENOrdering Facility: [facility] Address:[address] [place], [place] [address]Performed By: #### 18427-9 ####[facility] LABCLIA [id number] [place], [place] [address]QSA [Catalytic activity/Vol]34 U/APuadmf53-68BxraurrawPike Community Hospital on above:Order Comment: Specimen Type: BLOOD SPECIMENOrdering Facility: [facility] Address:[address] [place], [place] [address]Performed By: #### 50006- 8 ####[facility] LABCLIA [id number] [place], [place] [address]Qbezg gap [Moles/Vol]9 mmol/LNormal8-15[facility] on above:Order Comment: Specimen Type: BLOOD SPECIMENOrdering Facility: [facility] Address:[address] [place], [place] [address]Performed By: #### 18595-6 ####[facility] LABIA [id number] [place], [place] [address]GHG [Catalytic activity/Vol]33 U/LPbzvsf17-14AtvzgzbmcPike Community Hospital on above:Order Comment: Specimen Type: BLOOD SPECIMENOrdering Facility: [facility] Address:[address] [place], [place] [address]Performed By: #### 37567-0 ####[facility] LABCLIA [id number] [facility] [place] [address] Bilirubin [Mass/Vol]0.7 mg/dLNormal0.2-1.3CPeoples Hospital on above:Order Comment: Specimen Type: BLOOD SPECIMENOrdering Facility: [facility] Address:[address] [place], [place] [address]Performed By: #### 58230-9 ####[facility] LABCLIA [id number] [place]UKUND [place], [place] [address]Pawqbqn [Mass/Vol]9.4 mg/dLNormal8.5-10.2CPeoples Hospital on above:Order Comment: Specimen Type: BLOOD SPECIMENOrdering Facility: [facility] Address:[address] [place], [place] [address]Performed By: #### 38059-6 ####[facility] LABCLIA [id number] [facility] [place], [place] [address]Edathhed [Moles/Vol]110 mmol/HEcgo81-139CyfkefcjaPike Community Hospital on above:Order Comment: Specimen Type: BLOOD SPECIMENOrdering Facility: [facility] Address:[address] [place], [place] [address]Performed By: #### 89003- 8 ####[facility] LABCLIA [id number] [facility] MERON DOFLAGSTAFF MEDICAL CENTERRUTHG[place]EN [place], [place] [address]MA0 [Moles/Vol]27 mmol/FWtxesz08-59RqiuyxtyoPike Community Hospital on above:Order Comment: Specimen Type: BLOOD SPECIMENOrdering Facility: [facility] Address:[address] [place], [place] [address]Performed By: #### 67663-0 ####[facility] LABCLIA [id number] SERGEY CARISSAFLAGSTAFF MEDICAL CENTERFABIENCENTRAL [place], [place] [address]Xqynmcrtkf [Mass/Vol]1.89 mg/dL High0.73-1.22[facility] ClevelandComment on above:Order Comment: Specimen Type: BLOOD SPECIMENOrdering Facility: [facility] Address:[address] [place], [place] [address]Performed By: #### 69592-4 ####[facility] LABCLIA [id number] [place] [address] Creatinine and Glomerular filtration rate.predicted panel (S/P/Bld)34 mL/min/1.73m???Low>=60[facility] on above:Order Comment: Specimen Type: BLOOD SPECIMENOrdering Facility: [facility] Address:[address] [place], [place] [address]Result Comment: Estimated Glomerular Filtration Rate (eGFR) is calculated using the 2020 CKD-EPI creatinine equation. This equation utilizes serum creatinine, sex, and age as parameters. The creatinine assay has traceable calibration to isotope dilution-mass spectrometry. Refer to KDIGO guidelines for clinical interpretation. In patients with unstable renal function, e.g. those with acute kidney injury, the eGFR may not accurately reflect actual GFR.Performed By: #### 60750-9 ####[facility] LABCLIA [id number] [place] [address] Glucose [Mass/Vol]111 mg/fSHecq18-10NxzdzkmofPike Community Hospital on above: Order Comment: Specimen Type: BLOOD SPECIMENOrdering Facility: [facility] Address:[address] [place] [address]Qcweeg Comment: The [place] Diabetes Association (ADA) provides guidance for cutoff [...] Standards of Medical Care in Diabetes 2016, [place] Diabetes Association. Diabetes Care. 2016.39(Suppl 1).Performed By: #### 13607-0 ####[facility] LABCLIA [id number] [place], [place] [address]Ncyirgkjg [Moles/Vol]4.5 mmol/LNormal3.7-5.1CPeoples Hospital on above:Order Comment: Specimen Type: BLOOD SPECIMENOrdering Facility: [facility] Address:[address] [place], [place] [address]Performed By: #### 84200-9 ####[facility] LABCLIA [id number] [place], [place] [address]Tutkuqk [Mass/Vol]6.3 g/dLNormal6.3-8.0[facility] on above:Order Comment: Specimen Type: BLOOD SPECIMENOrdering Facility: [facility] Address:[address] [place], [place] [address]Performed By: #### 16465- 8 ####[facility] LABCLIA [id number] [place], [place] [address]Lsnqjr [Moles/Vol]146 mmol/DEazo229-436IyggafgkgPike Community Hospital on above:Order Comment: Specimen Type: BLOOD SPECIMENOrdering Facility: [facility] Address:[address] [place], [place] [address]Performed By: #### 60941-7 ####[facility] LABIA [id number] [place], [place] [address]Zimu nitrogen [Mass/Vol]43 mg/dLHigh9-24[facility] on above:Order Comment: Specimen Type: BLOOD SPECIMENOrdering Facility: [facility] Address:[address] [place], [place] [address]Performed By: #### 67420-6 ####[facility] LABIA [id number] [place] [address] TSH SerPl-aCncon 08-21-6148VOG Qn2.600 m[IU]/LNormal0.270-4.200[facility] on above:Order Comment: Specimen Type: BLOOD SPECIMENOrdering Facility: [facility] Address:[address] [place] [address]Performed By: #### 3016-3 ####[place] LABCLIA [id number] TOMMY OSABMTRKVHN53FHKIUAQNM, [place] [address] [place] Basic Metabolic Panelon 82-74-5453Sywnu gap [Moles/Vol]7 mmol/LLow9 - 17 mmol/L [facility] [employer] [facility] HOSPITALCalcium [Mass/Vol]8.2 mg/dLLow8.6 - 10.4 mg/dLB[facility] PingboardChloride [Moles/Vol]107 mmol/L98 - 107 mmol/LBON [facility] PingboardCO2 [Moles/Vol]27 mmol/L20 - 31 mmol/LBON [facility] [employer] Creatinine [Mass/Vol]1.6 mg/dLHigh0.7 - 1.2 mg/dLB[facility] PingboardEst, Glom Filt Oeqq98Ccq- PINFBON [facility] on above: These results are [...] that affects renal tubular secretion. Glucose [Mass/Vol]117 mg/kLEagg48 - 99 mg/dLB[facility] P[employer]board Interpretation and review of laboratory resultsAbnormalB[facility] [employer] Potassium [Moles/Vol]3.7 mmol/L3.7 - 5.3 mmol/LBON [facility] PingboardSodium [Moles/Vol]141 mmol/L135 - 144 mmol/LBON [facility] MEDICAL CENTERAdverCarUrea nitrogen [Mass/Vol]26 mg/dLHigh8 - 23 mg/dLB[facility] PingboardUrea nitrogen/Creatinine [Mass ratio]16 mg/mg9 - 20BON [facility]VAL[facility] MUNICIPAL HOSPITALByteActive [facility] HOSPITALBON SECufindads [facility] HOSPITALBasic Metabolic Profon 96-57-6269Npaon gap [Moles/Vol]7 mmol/LLow9-17[facility] Hospital CompanyComment on above:Performed By: #### TIP, TROPI, BMP #### [address] [place] [address] Livestock Counter: DRAKE Olivas/CRE Soeut57Vstvhb3-21Azpsi [facility] Comment on above:Performed By: #### TIP TROPI, BMP #### [address] [place] [address] Livestock Counter: SHEREE Olivasalcium [Mass/Vol]8.2 mg/dLLow8.6-10.4[facility] Hospital CompanyComment on above:Performed By: #### TIP TROPI, BMP #### [address] [place] [address] Livestock Counter: SHEREE Olivashloride [Moles/Vol]107 mmol/PMbstmf56-030Koeaz [facility]iffin HospitalComment on above:Performed By: #### TIP TROPI, BMP #### [address] [place] [address] Livestock Counter: SHEREE OlivasO2 [Moles/Vol]27 mmol/FCupmkj18-27NygrsRegency Hospital CompanyComment on above:Performed By: #### TIP TROPI, BMP #### [address] [place] [address] Livestock Counter: HSEREE Olivasreatinine [Mass/Vol]1.6 mg/dLHigh0.7-1.2Mercy Estill HospitalComment on above:Performed By: #### TIP TROPI, BMP #### [address] [place], [place] [phone] Livestock Counter: Augusto Sidhu MDGFR/1.73 sq M.predicted among non-blacks MDRD (S/P/Bld) [Vol rate/Area]42 mL/min/{1.73_m2}Low>60Mercy Estill HospitalComment on above:Result Comment: These results are [...] secretion.Performed By: #### YOHAN WHELAN, BMP #### [address] [place], [place] [address] Livestock Counter: Augusto Sidhu MDGlucose [Mass/Vol]117 mg/qHLsjy91-11Lwtud [facility] HospitalComment on above:Performed By: #### YOHAN WHELAN BMP #### [address] [place], [place] [address] Livestock Counter: JEREMY Olivasotassium [Moles/Vol]3.7 mmol/LNormal3.7-5.3Mercy Estill HospitalComment on above:Performed By: #### YOHAN WHELAN BMP #### [address] [place], [place] [address] Livestock Counter: ROCIO Olivasodium [Moles/Vol]141 mmol/ZLrfgbv745-393GviugRegency Hospital CompanyComment on above:Performed By: #### YOHAN WHELAN, BMP #### [address] [place], [place] [address] Livestock Counter: Augusto Sidhu MDUrea nitrogen [Mass/Vol]26 mg/dLHigh8-23MerCharlotte Hungerford HospitalComment on above:Performed By: #### YOHAN WHELAN, BMP #### [address] [place], [place] [address] Livestock Counter: Augusto Sidhu [facility] with Auto Differentialon 32-14-5477Srrqxgenz (Bld) [#/Vol]0.07 10*3/uLBON [facility]OU[facility] BROWN MEMORIAL HOSPITALY HEALTHBasophils/100 WBC (Bld)1 %0 - 2 %[facility] HEALTHEosinophils (Bld) [#/Vol]0.45 10*3/uLHighBON SECOURS MERCY HEALTHEosinophils/100 WBC (Bld)5 %High1 - 4 %[facility]ALTH Erythrocyte distribution width (RBC) [Ratio]14.2 %11.8 - 14.4 %[facility] HOSPITALY HEALTHHematocrit (Bld) [Volume fraction]36.5 %Low40.7 - 50.3 %[facility] HEALTHHemoglobin (Bld) [Mass/Vol]11.9 g/dLLow13.0 - 17.0 g/dLBON SECOURS [facility]AL HOSPITALImmature granulocytes (Bld) [#/Vol]0.03 10*3/uLBON [facility] Immature granulocytes/100 WBC (Bld)0 %0B[facility] HEALTHInterpretation and review of laboratory resultsAbnormalBON SECOURS BROWN MEMORIAL HOSPITALY HEALTHLymphocytes/100 WBC (Bld)10 %Low24 - 43 %[facility] HOSPITALY HEALTHLymphocytes/100 WBC (Bld)0.82 % LowBON SECOURS PROMEDICA FLOWER HOSPITALH (RBC) [Entitic mass]27.7 pg25.2 - 33.5 pgBON SECOURS PROMEDICA FLOWER HOSPITALHC (RBC) [Mass/Vol]32.6 g/dL28.4 - 34.8 g/dLBON SECOURS PROMEDICA FLOWER HOSPITALV (RBC) [Entitic vol]85.1 fL82.6 - 102.9 fLBON SECOURS BROWN MEMORIAL HOSPITALY HEALTHMonocytes/100 WBC (Bld)8 %3 - 12 %[facility] HEALTHMonocytes/100 WBC (Bld)0.63 %[facility] HOSPITALY HEALTHNeutrophils/100 WBC (Bld)76 %High36 - 65 %[facility] HOSPITALY HEALTHNucleated RBC/100 WBC (Bld) [Ratio]0.0 %0.0 per 100 WBC [facility] HOSPITALY HEALTHPlatelet mean volume (Bld) [Entitic vol]8.5 fL8.1 - 13.5 fLBON SECOURS MERCY HEALTHPlatelets (Bld) [#/Vol]290 10*3/uLBON [facility] MEDICAL CENTERRBC (Bld) [#/Vol]4.29 10*6/uL4.21 - 5.77 m/[facility] Segmented neutrophils/100 WBC (Bld)6.45 %BON TO[facility] VA MEDICAL CENTERWBC other (Bld) [#/Vol]8.5BON [facility]OS[facility]ITAL [facility] CARE CENTERCBC with Diffon 96-00-1417Log. Basophil0.07 k/uLNormal0.00-0.20[facility] HospitalComment on above:Performed By: #### TIP TROPI, BMP #### [address] [place] [phone] Livestock Counter: Trevor Olivas.Imm.Granulocyte0.03 k/uLNormal0.00-0.30[facility] HospitalComment on above:Performed By: #### TIP TROPI, BMP #### [address] [place], [place] [address] Livestock Counter: Trevor Olivas.Neutrophil (Seg)6.45 k/uLNormal1.50-8.10[facility] HospitalComment on above:Performed By: #### TIP TROPI, BMP #### [address] [place], [facility]83 Livestock Counter: Augusto Sidhu MDBasophils/100 WBC (Bld)1 %Normal0-2MPremier Health Atrium Medical Center HospitalComment on above:Performed By: #### TIP TROPI, BMP #### [address] [place], [facility]83 Livestock Counter: Augusto Sidhu MDEosinophils (Bld) [#/Vol]0.45 10*3/uLHigh0.00-0.44 [facility] HospitalComment on above:Performed By: #### TIP, TROPI, BMP #### [address] [place], [place] [address] Livestock Counter: Augusto Sidhu MDEosinophils/100 WBC (Bld)5 %High1-4[facility] CompanyComment on above:Performed By: #### CDP, TROPI, BMP #### [address] [place] [address] Livestock Counter: Augusto Sidhu MDErythrocyte distribution width (RBC) [Ratio]14.2 % Umnsdu84.8-14.4[facility] HospitalComment on above:Performed By: #### TIP TROPI, BMP #### [address] [place] [address] Livestock Counter: Augusto Sidhu MDHematocrit (Bld) [Volume fraction]36.5 %Low 40.7-50.3Mer[facility] Estill HospitalComment on above:Performed By: #### TIP TROPI, BMP #### [address] [place], [place] [address] Livestock Counter: Augusto Sidhu MDHemoglobin (Bld) [Mass/Vol]11.9 g/dLLow13.0-17.0 [facility] CompanyComment on above:Performed By: #### TIP TROPI, BMP #### [address] [place], [place] [address] Livestock Counter: Augusto Sidhu MDImmature granulocytes/100 WBC (Bld)0 %Iarlpr2Vjury [facility]in HospitalComment on above:Performed By: #### TIP, TROPI, BMP #### [address] [place] [address] Livestock Counter: Augusto Sidhu MDLymphocytes (Bld) [#/Vol]0.82 10*3/uLLow1.10-3.70 [facility] CompanyComment on above:Performed By: #### TIP, TROPI, BMP #### [address] [place] [address] Livestock Counter: Gay Olivasmphocytes/100 WBC (Bld)10 %Oyg90-32Czoef [facility] HospitalComment on above:Performed By: #### TIP, TROPI, BMP #### [address] [place], [place] [address] Livestock Counter: DANDRE Olivas (RBC) [Entitic mass]27.7 rtSirbzq31.2-33.5 [facility] HospitalComment on above:Performed By: #### PEGGY WHELANI, BMP #### [address] [place], [place] [address] Livestock Counter: DANDRE OlivasC (RBC) [Mass/Vol]32.6 g/gIEghjpn36.4-34.8[facility] HospitalComment on above:Performed By: #### TIP TROPI, BMP #### [address] [place] [address] Livestock Counter: LORNA OlivasCV (RBC) [Entitic vol]85.1 tPZyzgie36.6-102.9 [facility] HospitalComment on above:Performed By: #### TIP TROPI, BMP #### [address] [place] [address] Livestock Counter: LORNA Olivasonocytes (Bld) [#/Vol]0.63 10*3/uLNormal0.10-1.20 [facility] HospitalComment on above:Performed By: #### TIP, TROPI, BMP #### [address] [place], [place] [address] Livestock Counter: LORNA Olivasonocytes/100 WBC (Bld)8 %Normal3-12[facility] HospitalComment on above:Performed By: #### TIP, TROPI, BMP #### [facility] [address] [place] [address] Livestock Counter: Lilly Olivas (Seg)76 %Hyft72-88GkbznRegency Hospital Company Comment on above:Performed By: #### CDP, TROPI, BMP #### [address] [place] [address] Livestock Counter: NAYELI Olivas Automated0.0 per 100 WBCNormal0.0[facility] CompanyComment on above:Performed By: #### TIP, TROPI, BMP #### [address] [place] [address] Livestock Counter: Micah Olivas mean volume (Bld) [Entitic vol]8.5 fL Normal8.1-13.5[facility] CompanyComment on above:Performed By: #### TIP, TROPI, BMP #### [address] [place] [address] Livestock Counter: Vasquez Olivas (Bld) [#/Vol]290 10*3/tBRaiudf633-457 [facility] CompanyComment on above:Performed By: #### TIP, TROPI, BMP #### [address] [place] [address] Livestock Counter: ABEL Olivas (Bld) [#/Vol]4.29 10*6/uLNormal4.21-5.77[facility] CompanyComment on above:Performed By: #### TIP, TROPI, BMP #### [address] [place], [place] [address] ([address] Livestock Counter: PANDA Olivas (Bld) [#/Vol]8.5 10*3/uLNormal3.5-11.3MKeenan Private HospitalComment on above:Performed By: #### CDP, TROPI, [facility] #### [facility] [address] [place] [address] Livestock Counter: JON Olivas CHEST PULMONARY EMBOLISM W CONTRASTon [id number] CHEST PULMONARY EMBOLISM W CONTRASTEXAMINATION: CTA OF [...] by: Venus Dumont MD 03/22/24 Final resultNormalMercy [facility] Valley Hospital1. No evidence of pulmonary embolism or [...] No acute bone or soft tissue abnormality. [facility] Venus Holcomb MD - 03/22/2024 EXAMINATION: [...] and ingested material distension of the stomach. [facility] FramebridgeRadiology Study observation (narrative)[facility]KS HOSPITALufindads [facility]ITALCT CHEST PULMONARY EMBOLISM W CONTRASTOrdered By: Venus Dumont on 63-40-4385FCH [employer] Work Phone: [phone]-Wjzto Teston 02-24-8048S-Dimer Test1.08 ug/mL FEU High0.00-0.59[facility] on above:Result Comment: When combined with [...] patients with distal DVT.Performed By: #### VITALY ####[address] [place] [address] lab Director: Augusto Sidhu MDD-Dimer, Quantitativeon 27-82-4790Rvobem D-dimer FEU (PPP) [Mass/Vol]1.08[facility] on above: When combined with a [...] distal DVT. Interpretation and review of laboratory resultsAbMountain States Health AllianceInnercircuit, Inc. XR Chest AP single viewon 80-86-6202Fw acute airspace disease identified. [facility] CONSOLIDATEDEXAMINATION: ONE XRAY VIEW OF THE [...] Surgical clips project over the mid abdomen. [facility] Benji Phelan MD - 03/22/2024 EXAMINATION: [...] abdomen. IMPRESSION: No acute airspace disease identified. [facility]OOKS HOSPITALMetallkraft AS AdStackRadiology Study observation (narrative)[facility] [employer] AdStackAdams Memorial HospitalCitizens Rx XR Chest AP single viewOrdered By: Benji Castro on 94-05-1655TSP SECMetallkraft AS [employer]Stack Work Phone: Troponinon 34-39-2309Wtrclliiglxmgg and review of laboratory resultsAbnormalMARY WASHINGTON HOSPITALTroponin I.cardiac High sensitivity method [Mass/Vol]69 ng/LCritically high0 - 22 ng/LBON [facility] MEDICAL CENTERComment on above:High Sensitivity Troponin values cannot be compared with other Troponin methodologies.MARY WASHINGTON HOSPITALTroponin, High Sens69 ng/L Critically high0-22[facility] CompanyCominsight surgical hospital on above:Result Comment: High Sensitivity Troponin values cannot be compared with other Troponin methodologies.Performed By: #### TROPI ####[facility] [place] [address] Lab Director: Augusto Sidhu MD Interpretation and review of laboratory resultsAbnoMountain View Regional Medical Center Troponin I.cardiac High sensitivity method [Mass/Vol]73 ng/LCritically high0 - 22 ng/LBON [facility] MEDICAL CENTERCominsight surgical hospital on above:High Sensitivity Troponin values cannot be compared with other Troponin methodologies.[facility] Troponin, High Sens73 ng/LCritically high0-22[facility] CompanyCominsight surgical hospital on above:Result Comment: High Sensitivity Troponin values cannot be compared with other Troponin methodologies.Performed By: #### CDP, TROPI, BMP #### [address] [place] [address] Livestock Counter: MALORIE Olivas CHEST PORTABLEon [id number] CHEST PORTABLE EXAMINATION: ONE XRAY VIEW OF [...] Signed by: Benji Castro MD 03/22/24 Final resultNoOhio Valley Surgical Hospital Abdomen and Pelvis W contrast [place] 96-57-2705UCHBYIDSQI: 1. Stable appearance of geographic area of [...] any questions regarding this interpretation, please call [phone]. If you are unable to reach us at the number above, please feel free to contact [facility] Hospital[facility] at [phone].DIVISION OF RADIOLOGY* * *Final Report* * * DATE OF EXAM: Jan 24 2024 1:25PM [facility] 0530 - CT ABD/PEL W [...] images: No additional findings. DIVISION OF RADIOLOGYProvider, [facility] Imaging [place] - 01/27/2024 * * *Final Report* * * DATE OF EXAM: Jan 24 2024 1:25PM [facility] 0530 - CT ABD/PEL W [...] any questions regarding this interpretation, please call [phone]. If you are unable to reach us at the number above, please feel free to contact [facility] eRadiology at [phone]. [facility] Abdomen and Pelvis W contrast IVOrdered By: Ccf Provider on 52-01-6478Fmlbmlytp [facility] Medical CenterCT Chest W contrast [place] 27-82-2056Hfugikuwgjrqif and review of laboratory resultsAbnormalCKettering Health Behavioral Medical CenterRadiology ResultACTIONABLE AbnormalHolzer Medical Center – JacksonComment on above:This report contains an incidental or [...] be communicated with the ordering provider via [employer] staff message or phone message by Imaging Support Services within 2 business days of report finalization. --END OF FINDING-- Algorithms for management of incidental imaging findings can be found on the [facility] Intranet Sharepoint site at: [email or web address] [email or web address] Transcribe Date/Time: Jan 27 2024 8:36A Dictated by: LIO OSORIO MD This examination was interpreted and the report reviewed and electronically signed by: LIO OSORIO MD on Jan 27 2024 8:50AM EST Thank you for allowing us to participate in the care of your patient. Should there be any questions regarding this interpretation, please call [phone]. If you are unable to reach us at the number above, please feel free to contact [facility] at [phone].DIVISION OF RADIOLOGY* * *Final Report* * * DATE OF EXAM: Jan 24 2024 1:25PM [facility] 0539 - CT CHEST W [...] images: No additional findings. DIVISION OF RADIOLOGYProvider, [facility] [place] - 01/27/2024 * * *Final Report* * * DATE OF EXAM: Jan 24 2024 1:25PM [facility] 0539 - CT CHEST W [...] be communicated with the ordering provider via [employer] staff message or phone message by Imaging Support Services within 2 business days of report finalization. --END OF FINDING-- Algorithms for management of incidental imaging findings can be found on the [facility] Intranet Sharepoint site at: [email or web address]%20Findi ngs%20at%20Imaging/Forms/AllItems.aspx Transcribe Date/Time: Jan 27 2024 8:36A Dictated by: LIO OSORIO MD This examination was interpreted and the report reviewed and electronically signed by: LIO OSORIO MD on Jan 27 2024 8:50AM EST Thank you for allowing us to participate in the care of your patient. Should there be any questions regarding this interpretation, please call [phone]. If you are unable to reach us at the number above, please feel free to contact [facility]Radiology at [phone]. [facility] W Auto Differential panel (Bld)on 01-24-2024 Basophils (Bld) [#/Vol]0.03 10*3/uLNIMercy Health St. Charles [facility] ClinicBasophils/100 WBC (Bld) 0.4 %[facility] JacksonDifferential cell count method Nom (Bld)AutoCleveland ClinicEosinophils (Bld) [#/Vol]0.12 10*3/uLNINFHolzer Medical Center – JacksonEosinophils/100 WBC (Bld)1.6 %[facility] JacksonErythrocyte distribution width (RBC) [Ratio]17.1 % High11.5 - 15.0 %[facility] JacksonHematocrit (Bld) [Volume fraction]38.0 %Low39.0 - 51.0 %[facility] JacksonHemoglobin (Bld) [Mass/Vol]12.4 g/dLLow13.0 - 17.0 g/dL [facility] JacksonImmature granulocytes (Bld) [#/Vol]0.03 10*3/uLNINFHolzer Medical Center – JacksonImmature granulocytes/100 WBC (Bld)0.4 %[facility] JacksonInterpretation and review of laboratory resultsAbnormalCleveland ClinicLymphocytes (Bld) [#/Vol] 0.47 10*3/uLLowHolzer Medical Center – JacksonLymphocytes/100 WBC (Bld)6.5 %[facility] HealthH (RBC) [Entitic mass]27.9 pg26.0 - 34.0 pgClevelEssentia HealthHC (RBC) [Mass/Vol] 32.6 g/dL30.5 - 36.0 g/dLHolzer Medical Center – JacksonMCV (RBC) [Entitic vol]85.6 fL80.0 - 100.0 fLCleveland ClinicMonocytes (Bld) [#/Vol]0.50 10*3/uLNINFHolzer Medical Center – Jackson Monocytes/100 WBC (Bld)6.9 %[facility] JacksonNeutrophils (Bld) [#/Vol]6.13 10*3/uLHolzer Medical Center – JacksonNeutrophils/100 WBC (Bld)84.2 %[facility] JacksonNucleated RBC (Bld) [#/Vol]NINFClevelAdams County HospitalNucleated RBC/100 WBC (Bld) [Ratio]0.0 % /100 WBCHolzer Medical Center – JacksonPlatelet mean volume (Bld) [Entitic vol]9.0 fL9.0 - 12.7 fLClevelatrium health wake forest [facility] ClinicPlatelets (Bld) [#/Vol]206 10*3/uLHolzer Medical Center – JacksonRBC (Bld) [#/Vol]4.44 10*6/uL4.20 - 6.00 m/[facility] CenterWBC (Bld) [#/Vol]7.28 10*3/uL [facility] HospitalComprehensive metabolic 2000 panelOrdered By: Skylar Orona on [id number] [Mass/Vol]3.1 g/dLLow3.9 - 4.9 g/dLMiami ClinicALP [Catalytic activity/Vol]59 U/L38 - 113 U/LCleveland ClinicALT [Catalytic activity/Vol]20 U/L10 - 54 U/LCleveland ClinicAnion gap [Moles/Vol]7 mmol/LLow9 - 18 mmol/LCleveland ClinicAST [Catalytic activity/Vol]23 U/L14 - 40 U/LCleveland ClinicBilirubin [Mass/Vol]0.4 mg/dL0.2 - 1.3 mg/dLCleveland Clinic Calcium [Mass/Vol]8.4 mg/dLLow8.5 - 10.2 mg/dLMiami ClinicChloride [Moles/Vol]108 mmol/LHigh97 - 105 mmol/LCleveland ClinicCO2 [Moles/Vol]30 mmol/L 22 - 30 mmol/LCleveland ClinicCreatinine [Mass/Vol]1.55 mg/dLHigh0.73 - 1.22 mg/dLMiami ClinicGFR/1.73 sq M.predicted among non-blacks MDRD (S/P/Bld) [...] eGFRmay not accurately reflect actual GFR.Glucose [Mass/Vol]107 mg/wRBisi32 - 99 mg/dLHolzer Medical Center – JacksonComment on above:The [place] Diabetes Association (ADA) provides guidance for cutoff [...] Standards of Medical Care in Diabetes 2016, [place] Diabetes Association. Diabetes Care. 2016.39(Suppl 1). Interpretation and review of laboratory resultsAbnormalCleveland ClinicPotassium [Moles/Vol]3.7 mmol/L3.7 - 5.1 mmol/LCleveland ClinicProtein [Mass/Vol]4.7 g/dL Low6.3 - 8.0 g/dLMiami ClinicSodium [Moles/Vol]145 mmol/GFser630 - 144 mmol/LCleveland ClinicUrea nitrogen [Mass/Vol]28 mg/dLHigh9 - 24 mg/dLOhioHealth Grove City Methodist HospitalNo Panel Informationon [id number] Study observation (narrative)[facility] Abdomen and Pelvis W contrast Newton [id number]: 1. More conspicuous indeterminate 2.7 x 1.0 [...] any questions regarding this interpretation, please call [phone]. If you are unable to reach us at the number above, please feel free to contact [facility]Radiology at [phone].DIVISION OF RADIOLOGY* * *Final Report* * * DATE OF EXAM: Aug 23 2023 10:44AM [facility] 0530 - CT ABD/PEL W [...] chest CT performed will be reported separately. Clinical Research Associate (topogram) images: No additional findings. DIVISION OF RADIOLOGYProvider, [facility] [place] - 08/24/2023 * * *Final Report* * * DATE OF EXAM: Aug 23 2023 10:44AM [facility] 0530 - CT ABD/PEL W [...] chest CT performed will be reported separately. Clinical Research Associate (topogram) images: No additional findings. IMPRESSION IMPRESSION: [...] any questions regarding this interpretation, please call [phone]. If you are unable to reach us at the number above, please feel free to contact [facility] at [phone]. [facility] Abdomen and Pelvis W contrast IVOrdered By: Ccf Provider on [id number] ClinicCT Chest W contrast Newton [id number]: 1. No evidence of intrathoracic metastases. 2. [...] any questions regarding this interpretation, please call [phone]. If you are unable to reach us at the number above, please feel free to contact [facility]iology at [phone].DIVISION OF RADIOLOGY* * *Final Report* * * DATE OF EXAM: Aug 23 2023 10:44AM [facility] 0539 - CT CHEST W [...] CT scan report for the abdomen findings. Clinical Research Associate (topogram) images: No additional findings. DIVISION OF RADIOLOGYProvider, [facility] [place] - 08/24/2023 * * *Final Report* * * DATE OF EXAM: Aug 23 2023 10:44AM [facility] 0539 - CT CHEST W [...] CT scan report for the abdomen findings. Clinical Research Associate (topogram) images: No additional findings. IMPRESSION IMPRESSION: [...] any questions regarding this interpretation, please call [phone]. If you are unable to reach us at the number above, please feel free to contact [facility]iology at [phone]. [facility] HospitalNo Panel Informationon [id number] Study observation (narrative)[facility] Abdomen and Pelvis W contrast [place] [id number]: 1. New indeterminate 5 mm enhancing focus [...] any questions regarding this interpretation, please call [phone]. If you are unable to reach us at the number above, please feel free to contact [facility]iology at [phone].DIVISION OF RADIOLOGY* * *Final Report* * * DATE OF EXAM: May 31 2023 10:16AM [facility] 0530 - CT ABD/PEL W [...] chest CT performed will be reported separately. Clinical Research Associate (topogram) images: No additional findings. DIVISION OF RADIOLOGYProvider, [facility] [place] - 06/01/2023 * * *Final Report* * * DATE OF EXAM: May 31 2023 10:16AM [facility] 0530 - CT ABD/PEL W [...] chest CT performed will be reported separately. Clinical Research Associate (topogram) images: No additional findings. IMPRESSION IMPRESSION: [...] any questions regarding this interpretation, please call [phone]. If you are unable to reach us at the number above, please feel free to contact [facility]iology at [phone]. [facility] Abdomen and Pelvis W contrast IVOrdered By: Ccf Provider on 68-57-0411Jaoiauxmd ClinicCT Chest W contrast [place] [id number]: 1. No evidence of intrathoracic metastases. 2. [...] any questions regarding this interpretation, please call [phone]. If you are unable to reach us at the number above, please feel free to contact [facility]iology at [phone].DIVISION OF RADIOLOGY* * *Final Report* * * DATE OF EXAM: May 31 2023 10:16AM [facility] 0539 - CT CHEST W [...] CT scan report for the abdomen findings. Clinical Research Associate (topogram) images: No additional findings. DIVISION OF RADIOLOGYProvider, [facility] [place] - 06/01/2023 * * *Final Report* * * DATE OF EXAM: May 31 2023 10:16AM [facility] 0539 - CT CHEST W [...] CT scan report for the abdomen findings. Clinical Research Associate (topogram) images: No additional findings. IMPRESSION IMPRESSION: [...] any questions regarding this interpretation, please call [phone]. If you are unable to reach us at the number above, please feel free to contact [facility]iology at [phone]. [facility] HospitalNo Panel Informationon [id number] Study observation (narrative)[facility] Centerltation Noteon 04-26-2023 Consultation [id number]#1.00CD:[address] [place], [place] [address]BNPon 20-26-4776Wxxsbosjlyu peptide B (Bld) [Mass/Vol] 1490.0 pg/mLNormal<=1,800.0The [facility] Mer[facility] HospitalComment on above:Performed By: #### CK, HSTROPN, CMP, BNP #### [facility] [address] [place] [address] Dr. Tan Villagomez AUTO DIFFon 08-33-9570NASA #0.1 103/ulNormal0.0-0.1The [facility] HospitalComment on above:Performed By: #### CK, HSTROPN, CMP, BNP #### [facility] [address] [address] [address] Yilan ChangBasophils/100 WBC (Bld)0.9 %Normal0.2-2.0The [facility] Comment on above:Performed By: #### CK, HSTROPN, CMP, BNP #### [facility] [address] [place] [address] Dr. Tan Ram #0.1 103/ulNormal0.0-0.7The [facility] HospitalComment on above: Performed By: #### CK, HSTROPN, CMP, BNP #### [facility] [address] [place] [address] Dr. Tan Santososinophils/100 WBC (Bld)1.6 %Normal0.9-7.0The [facility] Comment on above:Performed By: #### CK, HSTROPN, CMP, BNP #### [facility] [address] [place] [address] Dr. Tan Santosrythrocyte distribution width (RBC) [Ratio]14.7 %Lkcdgn39.0-15.0 The [facility] HospitalComment on above:Performed By: #### CK, HSTROPN, CMP, BNP #### [facility] [address] [place] [address] Dr. Tan OliverosHematocrit (Bld) [Volume fraction]38.9 %Critically low42.0-54.0 The [facility] HospitalComment on above:Performed By: #### CK, HSTROPN, CMP, BNP #### [facility] [address] [place] [address] Dr. Tan OliverosHemoglobin (Bld) [Mass/Vol]12.8 g/dLCritically low14.0-18.0The [facility] HospitalComment on above:Performed By: #### CK, HSTROPN, CMP, BNP #### [facility] [address] [place] [address] Dr. Tan OliverosIG #0.02 10e3/ulNormal0.00-0.03The [facility] HospitalComment on above:Performed By: #### CK, HSTROPN, CMP, BNP #### [facility] [address] [address] [address] Tan Panchal %0.3 %Normal0.0-0.5The [facility] HospitalComment on above: Performed By: #### CK, HSTROPN, CMP, BNP #### [facility] [address] [address] [address] Tan Armstrong #0.7 103/ulCritically low1.2-3.8The [facility] Comment on above:Performed By: #### CK, HSTROPN, CMP, BNP #### [facility] [address] [place] [address] Dr. Tan Singletonhocytes/100 WBC (Bld)10.4 %Critically low20.5-60.0The [facility] HospitalComment on above:Performed By: #### CK, HSTROPN, CMP, BNP #### [facility] [address] [place] [address] Dr. Tan BrizuelaUAL DIFF REQNONormalThe [facility] HospitalComment on above: Performed By: #### CK, HSTROPN, CMP, BNP #### [facility] [address] [place] [address] Dr. Tan Duarte (RBC) [Entitic mass]27.2 hiVihbbq69.9-34.0The [facility] HospitalComment on above:Performed By: #### CK, HSTROPN, CMP, BNP #### [facility] [address] [place] [address] Dr. Tan Duarte (RBC) [Mass/Vol]32.9 g/jSUnucrc34.9-35.2The [facility] HospitalComment on above:Performed By: #### CK, HSTROPN, CMP, BNP #### [facility] [address] [place] [address] Dr. Tan Duarte (RBC) [Entitic vol]82.8 sEIjlqxj47.0-94.0The [facility] HospitalComment on above:Performed By: #### CK, HSTROPN, CMP, BNP #### [facility] [address] [place] [address] Dr. Tan Torres #0.4 103/ulNormal0.3-0.8The [facility] HospitalComment on above:Performed By: #### CK, HSTROPN, CMP, BNP #### [facility] [address] [place] [address] Dr. Tan Riveraocytes/100 WBC (Bld)5.8 %Normal1.7-12.0The [facility] Comment on above:Performed By: #### CK, HSTROPN, CMP, BNP #### [facility] [address] [place] [address] Dr. Tan Goode #5.2 103/ulNormal1.4-6.5The [facility] HospitalComment on above:Performed By: #### CK, HSTROPN, CMP, BNP #### [facility] [address] [place] [address] Dr. Tan Sullivanutrophils/100 WBC (Bld)81.0 %Critically high43.0-75.0The [facility] HospitalComment on above:Performed By: #### CK, HSTROPN, CMP, BNP #### [facility] [address] [place] [address] Dr. Tan Murray mean volume (Bld) [Entitic vol]9.9 fLNormal9.5-13.5The [facility] HospitalComment on above:Performed By: #### CK, HSTROPN, CMP, BNP #### [facility] [address] [place] [address] Dr. Tan OliverosPLT198 103/lyNdmthg920-423Sux [facility] HospitalComment on above: Performed By: #### CK, HSTROPN, CMP, BNP #### [facility] [address] [place] [address] Dr. Tan OliverosRBC4.70 106/ulNormal4.70-6.10The [facility] HospitalComment on above:Performed By: #### CK, HSTROPN, CMP, BNP #### [facility] [address] [address] [address] Tan OliverosWBC6.4 103/ulNormal4.0-11.0The [facility] HospitalComment on above: Performed By: #### CK, HSTROPN, CMP, BNP #### [facility] [address] [address] [address] Tan Bryant 22-94-4525MW [Catalytic activity/Vol]152 U/ILawznf12-207Bha [facility] HospitalComment on above:Performed By: #### CK, HSTROPN, CMP, BNP #### [facility] [address] [address] [address] Tan Tomlin 14(COMP METB)on 30-44-8897Xmobqrz [Mass/Vol]3.5 g/dLNormal 3.4-5.0The [facility] HospitalComment on above:Performed By: #### CK, HSTROPN, CMP, BNP #### [facility] [address] [place] [address] Dr. Tan OliverosAlbumin/Globulin [Mass ratio]1.2 {ratio}NormalThe [facility] Clinic Foundationment on above:Performed By: #### CK, HSTROPN, CMP, BNP #### [facility] [address] [place] [address] Dr. Tan Patel [Catalytic activity/Vol]69 U/HDkxomv12-502Emx [facility] HospitalComment on above:Performed By: #### CK, HSTROPN, CMP, BNP #### [facility] [address] [place] [address] Dr. Tan Kay [Catalytic activity/Vol]21 U/BDgxcrg07-96Agb [facility] HospitalComment on above:Performed By: #### CK, HSTROPN, CMP, BNP #### [facility] [address] [place] [address] Dr. Tan Montesinos gap [Moles/Vol]14.6 mmol/LNormalThe [facility] Comment on above:Performed By: #### CK, HSTROPN, CMP, BNP #### [facility] [address] [address] [address] Tan OliverosAST [Catalytic activity/Vol]21 U/RPpoqep23-25Ulo [facility] HospitalComment on above:Performed By: #### CK, HSTROPN, CMP, BNP #### [facility] [address] [place] [address] Dr. Tan OliverosBilirubin [Mass/Vol]0.5 mg/dLNormal0.2-1.0The [facility] Comment on above:Performed By: #### CK, HSTROPN, CMP, BNP #### [facility] [address] [place] [address] Dr. Tan OliverosCalcium [Mass/Vol]8.7 mg/dLNormal8.5-10.1[facility] Comment on above:Performed By: #### CK, HSTROPN, CMP, BNP #### [facility] [address] [place] [address] Dr. Tan OliverosChloride [Moles/Vol]107 mmol/CBhyhjy11-039Acr [facility] Comment on above:Performed By: #### CK, HSTROPN, CMP, BNP #### [facility] [address] [place] [address] Dr. Tan OliverosCO2 [Moles/Vol]23.1 mmol/EYujamn22.0-32.0[facility] Comment on above:Performed By: #### CK, HSTROPN, CMP, BNP #### [facility] [address] [place] [address] Dr. Tan OliverosCreatinine [Mass/Vol]2.31 mg/dLCritically high0.70-1.30The [facility] HospitalComment on above:Performed By: #### CK, HSTROPN, CMP, BNP #### [facility] [address] [place] [address] Dr. Maddox ChangEGFR-AF CMYQNRJC05 mL/min/1.47b4Daaevfrlcg low>=60The [facility] HospitalComment on above:Performed By: #### CK, HSTROPN, CMP, BNP #### [facility] [address] [address] [address] Tan SantosGFR-NON AF TQGBXJIC75 mL/min/1.55l1Hcfgemuewf low>=60The [facility] HospitalComment on above:Performed By: #### CK, HSTROPN, CMP, BNP #### [facility] [address] [address] [address] Tan OliverosGlobulin (S) [Mass/Vol]2.8 g/dLNormalThe [facility] HospitalComment on above:Performed By: #### CK, HSTROPN, CMP, BNP #### [facility] [address] [address] [address] Tan OliverosGlucose [Mass/Vol]123 mg/dLCritically bhfw98-351Onv [facility] HospitalComment on above:Performed By: #### CK, HSTROPN, CMP, BNP #### [facility] [address] [place] [address] Dr. Tan OliverosPotassium [Moles/Vol]4.7 mmol/LNormal3.5-5.1The [facility] Comment on above:Performed By: #### CK, HSTROPN, CMP, BNP #### [facility] [address] [address] [address] Tan OliverosProtein [Mass/Vol]6.3 g/dLCritically low6.4-8.2The [facility] HospitalComment on above:Performed By: #### CK, HSTROPN, CMP, BNP #### [facility] [address] [place] [address] Dr. Tan OliverosSodium [Moles/Vol]140 mmol/PCabkrx401-691Aww [facility] Comment on above:Performed By: #### CK, HSTROPN, CMP, BNP #### [facility] [address] [place] [address] Dr. Tan OliverosUrea nitrogen [Mass/Vol]39.0 mg/dLCritically high7.0-18.0The [facility] HospitalComment on above:Performed By: #### CK, HSTROPN, CMP, BNP #### [facility] [address] [place], [place] [address] Dr. Tan OliverosUrea nitrogen/Creatinine [Mass ratio]16.9 mg/mgNoOhioHealthCominsight surgical hospital on above:Performed By: #### CK, HSTROPN, CMP, BNP #### [facility] [address] [place], [place] [address] Dr. Tan JosephOPODIMA, HIGH SENSITIVITYon 00-43-4202UJKMDW57.5 pg/mLNormal 4.0-76.1The [facility] HospitalCominsight surgical hospital on above:Result Comment: CUT-OFF POINTS HAVE BEEN ESTABLISHED BASED ON THE FOURTH UNIVERSAL DEFINITIONS OF MYOCARDIAL INFARCTION. THE UPPER REFERENCE LIMIT (URL) OF TROPONIN, DEFINED THE 99TH PERCENTILE OF cTnI DISTRIBUTION IN A REFERENCE POPULATION, HAS BEEN CONFIRMED THE DECISION THRESHOLD FOR MA DIAGNOSIS.Performed By: #### CK, HSTROPN, CMP, BNP #### [facility] [address] [address] [address] Tan OliverosXR CHEST 2 Von 57-34-5073QW CHEST 2 VEXAM: XR CHEST 2 V HISTORY: SHORTNESS OF BREATH COMPARISON: 12/08/2022 TECHNIQUE: Chest X-ray, 2 views FINDINGS: Support devices: None. Lungs/pleura: No consolidation, effusion, or pneumothorax. Heart and mediastinum: Normal contours. Bones: No acute abnormality identified. Impression: No radiographic evidence of acute cardiopulmonary process. Electronically authenticated by: MIKE MARTÍNEZ Date: 2023-03-10 11:51[facility] HospitalConsultation Noteon 32-83-5215Ibriklrlokuh Note [id number]#1.00CD:127NoalSelect Medical Specialty Hospital - [facility]-FairhillCT Chest WO contraston 62-22-0902RDNWESTPFT: 1. Since 11/15/2022, resolution of bibasilar pleural [...] any questions regarding this interpretation, please call [phone]. If you are unable to reach us at the number above, please feel free to contact [facility] at [phone].DIVISION OF RADIOLOGY* * *Final Report* * * DATE OF EXAM: Jan 23 2023 3:11PM [facility] 0541 - CT CHEST WO [...] few nonspecific noncalcified pulmonary nodules, with sales representative business courses examples detailed as follows on series 4: [...] the right adrenal. Status post left nephrectomy. Clinical Research Associate (topogram) images: No additional findings. DIVISION OF RADIOLOGYProvider, [facility] [place] - 01/23/2023 * * *Final Report* * * DATE OF EXAM: Jan 23 2023 3:11PM [facility] 0541 - CT CHEST WO [...] few nonspecific noncalcified pulmonary nodules, with sales representative business courses examples detailed as follows on series 4: [...] the right adrenal. Status post left nephrectomy. Clinical Research Associate (topogram) images: No additional findings. IMPRESSION IMPRESSION: [...] any questions regarding this interpretation, please call [phone]. If you are unable to reach us at the number above, please feel free to contact [facility] at [phone]. [facility] JacksonRad[facility] Study observation (narrative)[facility] Chest WO contrastOrdered By: Ccf Provider on 28-43-9524Egylhizxp ClinicECHOCARDIO M/2D COMPLETEon [id number] M/2D COMPLETEPatient: JUAN JOSE AUSTINFloyd Exam Date: 01/11/2023 : 1940 Gender:M Ordering : DR SERGIO SNEED . Admission #: [id number] Family : DR KEVEN CASTANEDA M.D. Order #: [id number] CLICK HERE TO VIEW EXAM ECHOCARDIOGRAM REPORT [...] by: Brandie Michel M.D. on 01/11/2023 at 15:32[facility] Anne HospitalConsent for Procedure/Surgeryon 40-48-5692Caxxxyn for Procedure/Surgery [id number]:127WVUM[facility] HospitalUrology Office/Clinic Noteon 26-23-7205Bwfpiqw Office/Clinic NoteHPI Staff Cystoscopy with right stent [...] [facility] [address], [place] [address]- Additional Instructions: PRN Patient Education I, Marisabel [...] 1 tab(s), O (more content not included)...Normal [facility]-FairhillComment on above:Result Comment: Electronically Signed By: Jian RODRIGUEZ MD\.br\Date and Time Signed: 12/18/22 12:13 EST\.br\Electronically Co-Signed By: Marisabel Reeves.br\Date and Time Co- Signed: 12/18/22 12:12 ESTCBC AUTO DIFFon [id number] #0.1 103/ulNormal 0.0-0.1The [facility] HospitalComment on above:Performed By: #### CK, HSTROPN, CMP, BNP #### [facility] [address] [address] [address] Tan OliverosBasophils/100 WBC (Bld)0.9 %Normal0.2-2.0The [facility] Comment on above:Performed By: #### CK, HSTROPN, CMP, BNP #### [facility] [address] [place] [address] Dr. Tan SantosO #0.2 103/ulNormal0.0-0.7The [facility] HospitalComment on above: Performed By: #### CK, HSTROPN, CMP, BNP #### [facility] [address] [place] [address] Dr. Tan Santososinophils/100 WBC (Bld)3.7 %Normal0.9-7.0The [facility] Comment on above:Performed By: #### CK, HSTROPN, CMP, BNP #### [facility] [address] [place] [address] Dr. Tan Santosrythrocyte distribution width (RBC) [Ratio]17.1 %Critically high 11.0-15.0The [facility] HospitalComment on above:Performed By: #### CK, HSTROPN, CMP, BNP #### [facility] [address] [place] [address] Dr. Tan OliverosHematocrit (Bld) [Volume fraction]38.5 %Critically low42.0-54.0 The [facility] HospitalComment on above:Performed By: #### CK, HSTROPN, CMP, BNP #### [facility] [address] [place] [address] Dr. Tan OliverosHemoglobin (Bld) [Mass/Vol]12.7 g/dLCritically low14.0-18.0The [facility] HospitalComment on above:Performed By: #### CK, HSTROPN, CMP, BNP #### [facility] [address] [place] [address] Dr. Tan OliverosIG #0.02 10e3/ulNormal0.00-0.03The [facility] HospitalComment on above:Performed By: #### CK, HSTROPN, CMP, BNP #### [facility] [address] [address] [address] Tan Panchal %0.4 %Normal0.0-0.5The [facility] HospitalComment on above: Performed By: #### CK, HSTROPN, CMP, BNP #### [facility] [address] [address] [address] Tan Armstrong #0.7 103/ulCritically low1.2-3.8The [facility] Comment on above:Performed By: #### CK, HSTROPN, CMP, BNP #### [facility] [address] [address] [address] Tan Singletonhocytes/100 WBC (Bld)12.3 %Critically low20.5-60.0The [facility] HospitalComment on above:Performed By: #### CK, HSTROPN, CMP, BNP #### [facility] [address] [address] [address] Tan BrizuelaUAL DIFF REQNONormalThe [facility] HospitalComment on above: Performed By: #### CK, HSTROPN, CMP, BNP #### [facility] [address] [place] [address] Dr. Tan Duarte (RBC) [Entitic mass]26.1 yeAwyvzk07.9-34.0The [facility] HospitalComment on above:Performed By: #### CK, HSTROPN, CMP, BNP #### [facility] [address] [place] [address] Dr. Tan Duarte (RBC) [Mass/Vol]33.0 g/dWNswjqv72.9-35.2The [facility] HospitalComment on above:Performed By: #### CK, HSTROPN, CMP, BNP #### [facility] [address] [place] [address] Dr. Tan Duarte (RBC) [Entitic vol]79.2 fLCritically low80.0-94.0The [facility] HospitalComment on above:Performed By: #### CK, HSTROPN, CMP, BNP #### [facility] [address] [address] [address] Tan Torres #0.4 103/ulNormal0.3-0.8The [place] HospitalComment on above:Performed By: #### CK, HSTROPN, CMP, BNP #### [facility] [address] [address] [address] Tan Riveraocytes/100 WBC (Bld)6.5 %Normal1.7-12.0The [facility] Comment on above:Performed By: #### CK, HSTROPN, CMP, BNP #### [facility] [address] [place] [address] Dr. Tan Goode #4.3 103/ulNormal1.4-6.5The [facility] HospitalComment on above:Performed By: #### CK, HSTROPN, CMP, BNP #### [facility] [address] [place] [address] Dr. Tan Cardosoophils/100 WBC (Bld)76.2 %Critically high43.0-75.0The [facility] HospitalComment on above:Performed By: #### CK, HSTROPN, CMP, BNP #### [facility] [address] [place] [address] Dr. Tan Murray mean volume (Bld) [Entitic vol]9.7 fLNormal9.5-13.5The [facility] HospitalComment on above:Performed By: #### CK, HSTROPN, CMP, BNP #### [facility] [address] [place] [address] Dr. Tan OliverosPLT199 103/ygNiwbxr006-263Hel [facility] HospitalComment on above: Performed By: #### CK, HSTROPN, CMP, BNP #### [facility] [address] [place] [address] Dr. Tan OliverosRBC4.86 106/ulNormal4.70-6.10The [facility] HospitalComment on above:Performed By: #### CK, HSTROPN, CMP, BNP #### [facility] [address] [place] [address] Dr. Tan OliverosWCHANTEL5.7 103/ulNormal4.0-11.0The [facility] HospitalComment on above: Performed By: #### CK, HSTROPN, CMP, BNP #### [facility] [address] [place] [address] Dr. Tan OliverosCULTURE URINEon 20-06-6004OCDQDND URINECulture Observations: NO GROWTH.NormalSelect Medical Trihealth Rehabilitation HospitalComment on above:Performed By: #### CK, HSTROPN, CMP, BNP #### [facility] [address] [place] [address] Dr. Tan Mackay URINE PROFILEon 54-93-0703Xyrqpgjwv Ql (U)NegativeNormal NEGATIVEThe [facility] HospitalComment on above:Performed By: #### CK, HSTROPN, CMP, BNP #### [facility] [address] [place] [address] Dr. Tan OliverosClarity (U)CLEARNormalCLEARThe [facility] HospitalComment on above: Performed By: #### CK, HSTROPN, CMP, BNP #### [facility] [address] [place] [address] Dr. Tan Spencer (U)LT. YELLOWNormalYELLOWSelect Medical Trihealth Rehabilitation HospitalComment on above:Performed By: #### CK, HSTROPN, CMP, BNP #### [facility] [address] [place] [address] Dr. Tan Holm micrscopic examination will be performed if indicated. NormalSelect Medical Trihealth Rehabilitation HospitalComment on above:Performed By: #### CK, HSTROPN, CMP, BNP #### [facility] [address] [place] [address] Dr. Tan OliverosGlucose Ql (U)NegativeNormalNEGATIVEThe [facility] HospitalComment on above:Performed By: #### CK, HSTROPN, CMP, BNP #### [facility] [address] [address] [address] Tan OliverosHemoglobin Ql (U)LARGEAbnormalNEGATIVESelect Medical [facility]health Rehabilitation Hospital Comment on above:Performed By: #### CK, HSTROPN, CMP, BNP #### [facility] [address] [address] [address] Tan Stallingsones Ql (U)NegativeNormalNEGATIVESelect Medical Trihealth Rehabilitation HospitalComment on above:Performed By: #### CK, HSTROPN, CMP, BNP #### [facility] [address] [address] [address] Tan MattsonOCYTESSMALLAbnormalNEGATIVESelect Medical Tri[facility] Rehabilitation HospitalComment on above:Performed By: #### CK, HSTROPN, CMP, BNP #### [facility] [address] [place] [address] Dr. Tan Mendeztrite Ql (U)NegativeNormalNEGATIVESelect Medical Trihealth Rehabilitation HospitalComment on above:Performed By: #### CK, HSTROPN, CMP, BNP #### [facility] [address] [address] [address] Tan OliverospH (U)6.0 [pH]Normal5-9Select [facility] Rehabilitation HospitalComment on above: Performed By: #### CK, HSTROPN, CMP, BNP #### [facility] [address] [place] [address] Dr. Tan OliverosSPEC GRAVITY1.352Emvqce4.005-<=1.025The [facility] HospitalComment on above:Performed By: #### CK, HSTROPN, CMP, BNP #### [facility] [address] [place] [address] Dr. Tan OliverosUA PROTEINNegativeNormalNEGATIVE/ TRACEThe [facility] Comment on above:Performed By: #### CK, HSTROPN, CMP, BNP #### [facility] [address] [address] [address] Tan Mejia MICRO INDINDICATEDNormalThe [facility] HospitalComment on above: Performed By: #### CK, HSTROPN, CMP, BNP #### [facility] [address] [address] [address] Tan Barretobilryley Qn (U)0.2 {Maged'U}/dLNormal0.2 - 1.0The [facility] HospitalComment on above:Performed By: #### CK, HSTROPN, CMP, BNP #### [facility] [address] [address] [address] Tan OliverosPOINT OF CARE GLUCOSEon 47-34-3783Lwnjuvh [Mass/Vol]114 mg/dL Critically gzuq79-550Qte [facility] HospitalComment on above:Performed By: #### CK, HSTROPN, CMP, BNP #### [facility] [address] [address] [address] Tan NickF CHEM 8 (BAS METB)on 03-15-6077Msxrr gap [Moles/Vol]13.2 mmol/LNormalThe [facility] HospitalComment on above:Performed By: #### HSTROPN, BMP #### [facility] [address] [address] [address] Tan OliverosCalcium [Mass/Vol]8.9 mg/dLNormal8.5-10.1[facility] Comment on above:Performed By: #### HSTROPN, BMP #### [facility] [address] [address] [address] Tan OliverosChloride [Moles/Vol]104 mmol/MBtnocy60-162Dme [facility] Comment on above:Performed By: #### HSTROPN, BMP #### [facility] [address] [address] [address] Tan OliverosCO2 [Moles/Vol]27.1 mmol/KYbolji60.0-32.0[facility] Comment on above:Performed By: #### HSTROPN, BMP #### [facility] [address] [address] [address] Tan OliverosCreatinine [Mass/Vol]2.11 mg/dLCritically high0.70-1.30The [place] HospitalComment on above:Performed By: #### HSTROPN, BMP #### [facility] [address] [address] [address] Tan SantosGFR-AF TWMYQPEP36 mL/min/1.43u2Mwwsmznlns low>=60The [facility] HospitalComment on above:Performed By: #### HSTROPN, BMP #### [facility] [address] [address] [address] Tan SantosGFR-NON AF PXYOEBMG89 mL/min/1.57b1Zqlhpkoevc low>=60The [facility] HospitalComment on above:Performed By: #### HSTROPN, BMP #### [facility] [address] [place] [address] Dr. Tan OliverosGlucose [Mass/Vol]107 mg/dLCritically vmzf18-503Rgc [facility] HospitalComment on above:Performed By: #### HSTROPN, BMP #### [facility] [address] [place] [address] Dr. Tan OliverosPotassium [Moles/Vol]4.3 mmol/LNormal3.5-5.1[facility] Comment on above:Performed By: #### HSTROPN, BMP #### [facility] [address] [place] [address] Dr. Tan Duartedium [Moles/Vol]140 mmol/JPjsbqv375-102YwjSelect Medical Trihealth Rehabilitation Hospital Comment on above:Performed By: #### HSTROPN, BMP #### [facility] [address] [place] [address] Dr. Tan OliverosUrea nitrogen [Mass/Vol]32.0 mg/dLCritically high7.0-18.0The [facility] HospitalComment on above:Performed By: #### HSTROPN, BMP #### [facility] [address] [place] [address] Dr. Tan Regan nitrogen/Creatinine [Mass ratio]15.2 mg/mgNormalThe [facility] HospitalComment on above:Performed By: #### HSTROPN, BMP #### [facility] [address] [place] [address] Dr. Tan Castañeda, HIGH SENSITIVITYon 83-58-6011VZHCCB05.6 pg/mLNormal 4.0-76.1[facility] on above:Result Comment: CUT-OFF POINTS HAVE BEEN ESTABLISHED BASED ON THE FOURTH UNIVERSAL DEFINITIONS OF MYOCARDIAL INFARCTION. THE UPPER REFERENCE LIMIT (URL) OF TROPONIN, DEFINED THE 99TH PERCENTILE OF cTnI DISTRIBUTION IN A REFERENCE POPULATION, HAS BEEN CONFIRMED THE DECISION THRESHOLD FOR MA DIAGNOSIS.Performed By: #### HSTROPN, BMP #### [facility] [address] [place] [address] Dr. Tan Alvarado MICROSCOPIC ONLYon 17-21-2168OCATREEAIFHYZPssfytugZQAC SEEN [facility] HospitalCominsight surgical hospital on above:Performed By: #### CK, HSTROPN, CMP, BNP #### [facility] [address] [place] [address] Dr. Tan Hoff identified Cx Nom (U)INDICATEDNoalThCleveland Clinic Children's Hospital for RehabilitationCominsight surgical hospital on above:Performed By: #### CK, HSTROPN, CMP, BNP #### [facility] [address] [place] [address] Dr. Tan Hinkle SEENNormalNONE SEENBarberton Citizens Hospital on above:Performed By: #### CK, HSTROPN, CMP, BNP #### [facility] [address] [place] [address] Dr. Tan Yo LM Nom (Urine sed)NONE SEENNormalNONE SEENBarberton Citizens Hospital on above:Performed By: #### CK, HSTROPN, CMP, BNP #### [facility] [address] [place] [address] Dr. Maddox ChangEpithelial cells LM Ql (Urine sed)RARENormalNONE SEEN /RAREBarberton Citizens Hospital on above:Performed By: #### CK, HSTROPN, CMP, BNP #### [facility] [address] [place] [address] Dr. Tan OliverosCOUSRENNY SEENNormalNONE SEENThe [place] HospitalComment on above:Performed By: #### CK, HSTROPN, CMP, BNP #### [facility] [address] [address] [address] Tan OliverosVkvmgLVD39-94Hbnenben8-0[facility] on above: Performed By: #### CK, HSTROPN, CMP, BNP #### [facility] [address] [address] [address] Tan OliverosWBC2-5AbnormalNONE SEENThe [facility] HospitalComment on above: Performed By: #### CK, HSTROPN, CMP, BNP #### [facility] [address] [address] [address] Tan OliverosXR CHEST 1 Von 20-26-7726ZK CHEST 1 VEXAM: XR CHEST 1 V HISTORY: SHORTNESS OF BREATH COMPARISON: 02/26/2022 TECHNIQUE: Single view of the FINDINGS: Heart size normal. No focal consolidation, pleural effusion, pulmonary congestion or pneumothorax. IMPRESSION: No acute findings. Electronically authenticated by: AUGUSTINA JAMES Date: 2022-12-08 12:54[facility] 90-55-5207Tckvtyb [id number]#1.00CD:127[facility] HospitalAmbulatory Visit Summaryon 30-67-8643Tfdzxpfmgv Visit Summary JUAN JOSE AUSTIN Shirley :1940 Visit Date:12/05/2022 Ambulatory Visit Instructions Your Diagnosis Enlarged prostate with urinary obstruction Bladder cancer Cancer of kidney Gross hematuria Other obstructive and reflux uropathy Tests Performed Urnls Dip Stick Auto w/o Microscopy POC 57659 Your Care Team Attending Physician - JENNIFER [...] Urology [address], [place] [address]- Medications What How Much When Instructions Unchanged [...] Urnls Dip Stick Auto w/o Microscopy POC 09708 (12/05/2022) Bilirubin Urine Dipstick - Negative Blood Urine Dipstick - 3+ Large Glucose Urine Dipstick - 1+ 250 mg/dl Ketones Urine Dipstick - Negative Leukocytes Urine Dipstick - 1+ Small Nitrite Urine Dipstick - Negative Protein Urine Dipstick - Trace Specific [place] Urine Dipstick - 1.020 Urine Appearance Urine [...] following factors may make (more content not included)...[facility] HospitalPatient Educationon [id number] EducationOncology Bladder Cancer Bladder cancer is an [...] Follow these instructions at home: ? Take wfal-eda-ikeocwk and prescription medicines only as told by [...] important. Where to find more information ? [employer]: www.cancer.org ? National [employer] [place] (NCI): www.cancer.gov Contact a health care provider [...] 10/02/2004 Document Revised: 09/12/2018 Document Reviewed: 09/03/2017 [employer] Patient Education ? 2019 [employer].[facility] Office/Clinic Noteon 54-97-8894Zfkmcwq Office/Clinic NoteChief Complaint Follow up to stent [...] [facility] [address], [place] [address]- Additional Instructions: Patient Education Bladder Cancer I, [...] urinary obstruction Gross hematuria (more content not included)...[facility] Comment on above:Result Comment: Electronically Signed By: Jian RODRIGUEZ MD.br\Date and Time Signed: 12/05/22 10:43 EST\.br\Electronically Co-Signed By: Priya Moodybr\Date and Time Co-Signed: 12/05/22 10:40 ESTConsultation Noteon 90-71-9049Yuyggybxhypf Note [id number]#1.00CD:127NormOhioHealth Pickerington Methodist HospitalCB AUTO DIFFon 75-13-0746KFWV #0.1 103/ulNormal0.0-0.1The [facility] HospitalComment on above:Performed By: #### CK, HSTROPN, CMP, BNP #### [facility] [address] [place] [address] Dr. Tan OliverosBasophils/100 WBC (Bld)0.7 %Normal0.2-2.0The [facility] Comment on above:Performed By: #### CK, HSTROPN, CMP, BNP #### [facility] [address] [address] [address] Tan Ram #0.2 103/ulNormal0.0-0.7The [facility] HospitalComment on above: Performed By: #### CK, HSTROPN, CMP, BNP #### [facility] [address] [address] [address] Tan Santososinophils/100 WBC (Bld)2.6 %Normal0.9-7.0The [facility] Comment on above:Performed By: #### CK, HSTROPN, CMP, BNP #### [facility] [address] [address] [address] Tan Santosrythrocyte distribution width (RBC) [Ratio]17.2 %Critically high 11.0-15.0The [facility] HospitalComment on above:Performed By: #### CK, HSTROPN, CMP, BNP #### [facility] [address] [place] [address] Dr. Tan OliverosHematocrit (Bld) [Volume fraction]43.8 %Pmpctm61.0-54.0The [facility] HospitalComment on above:Performed By: #### CK, HSTROPN, CMP, BNP #### [facility] [address] [place] [address] Dr. Tan OliverosHemoglobin (Bld) [Mass/Vol]14.4 g/jJPgqgqs43.0-18.0The [place] HospitalComment on above:Performed By: #### CK, HSTROPN, CMP, BNP #### [facility] [address] [place] [address] Dr. Tan Panchal #0.01 10e3/ulNormal0.00-0.03The [facility] HospitalComment on above:Performed By: #### CK, HSTROPN, CMP, BNP #### [facility] [address] [place] [address] Dr. Tan Panchal %0.1 %Normal0.0-0.5The [facility] HospitalComment on above: Performed By: #### CK, HSTROPN, CMP, BNP #### [facility] [address] [place] [address] Dr. Tan Armstrong #1.3 103/ulNormal1.2-3.8The [facility] HospitalComment on above:Performed By: #### CK, HSTROPN, CMP, BNP #### [facility] [address] [place] [address] Dr. Tan Singletonhocytes/100 WBC (Bld)18.4 %Critically low20.5-60.0The [facility] HospitalComment on above:Performed By: #### CK, HSTROPN, CMP, BNP #### [facility] [address] [place] [address] Dr. Tan BrizuelaUAL DIFF REQNONormalThe [facility] HospitalComment on above: Performed By: #### CK, HSTROPN, CMP, BNP #### [facility] [address] [place] [address] Dr. Tan Altman (RBC) [Entitic mass]25.0 pgCritically low25.9-34.0The [facility] HospitalComment on above:Performed By: #### CK, HSTROPN, CMP, BNP #### [facility] [address] [place] [address] Dr. Tan Duarte (RBC) [Mass/Vol]32.9 g/iCSpzbjz25.9-35.2The [place] HospitalComment on above:Performed By: #### CK, HSTROPN, CMP, BNP #### [facility] [address] [place] [address] Dr. Tan Duarte (RBC) [Entitic vol]75.9 fLCritically low80.0-94.0The [facility] HospitalComment on above:Performed By: #### CK, HSTROPN, CMP, BNP #### [facility] [address] [place] [address] Dr. Tan Torres #0.5 103/ulNormal0.3-0.8The [facility] HospitalComment on above:Performed By: #### CK, HSTROPN, CMP, BNP #### [facility] [address] [place] [address] Dr. Tan Riveraocytes/100 WBC (Bld)7.1 %Normal1.7-12.0The [facility] Comment on above:Performed By: #### CK, HSTROPN, CMP, BNP #### [facility] [address] [place] [address] Dr. Tan Goode #5.1 103/ulNormal1.4-6.5The [facility] HospitalComment on above:Performed By: #### CK, HSTROPN, CMP, BNP #### [facility] [address] [place] [address] Dr. Tan Sullivanutrophils/100 WBC (Bld)71.1 %Qggbsf94.0-75.0The [facility] HospitalComment on above:Performed By: #### CK, HSTROPN, CMP, BNP #### [facility] [address] [place] [address] Dr. Tan Murray mean volume (Bld) [Entitic vol]9.3 fLCritically low 9.5-13.5The [facility] HospitalComment on above:Performed By: #### CK, HSTROPN, CMP, BNP #### [facility] [address] [place] [address] Dr. Tan OliverosPLT209 103/dqAebrrk519-679Jop [facility] HospitalComment on above: Performed By: #### CK, HSTROPN, CMP, BNP #### [facility] [address] [place] [address] Dr. Tan OliverosRBC5.77 106/ulNormal4.70-6.10The [facility] HospitalComment on above:Performed By: #### CK, HSTROPN, CMP, BNP #### [facility] [address] [place] [address] Dr. Tan OliverosWBC7.2 103/ulNormal4.0-11.0The [facility] HospitalComment on above: Performed By: #### CK, HSTROPN, CMP, BNP #### [facility] [address] [place] [address] Dr. Tan Perez URINEon 42-76-2237ISHAOSW URINECulture Observations: NO GROWTH.NormalThe [facility] HospitalComment on above:Performed By: #### CK, HSTROPN, CMP, BNP #### [facility] [address] [place] [address] Dr. Tan Mackay URINE PROFILEon 72-38-4905Gfwaovgey Ql (U)Unable to perform testing due to color interference.AbnormalNEGATIVEThe [facility] HospitalComment on above:Performed By: #### CK, HSTROPN, CMP, BNP #### [facility] [address] [place] [address] Dr. Tan OliverosClmaria ines (U)CLEARNormalCLEARThe [facility] HospitalComment on above: Performed By: #### CK, HSTROPN, CMP, BNP #### [facility] [address] [place] [address] Dr. Tan Spencer (U)REDAbnormalYELLOWCleveland Clinic Akron General HospitalComment on above: Performed By: #### CK, HSTROPN, CMP, BNP #### [facility] [address] [address] [address] Tan Holm micrscopic examination will be performed if indicated. NormalThe [place] HospitalComment on above:Performed By: #### CK, HSTROPN, CMP, BNP #### [facility] [address] [address] [address] Tan OliverosGlucose Ql (U)Unable to perform testing due to color interference.AbnormalNEGATIVECleveland Clinic [facility] General HospitalComment on above:Performed By: #### CK, HSTROPN, CMP, BNP #### [facility] [address] [address] [address] Tan OliverosHemoglobin Ql (U)Unable to perform testing due to color interference.AbnormalNEGATIVECleveland Clinic [facility] General HospitalComment on above:Performed By: #### CK, HSTROPN, CMP, BNP #### [facility] [address] [address] [address] Tan Troy Ql (U)Unable to perform testing due to color interference.AbnormalNEGATIVECleveland Clinic [facility] General HospitalComment on above:Performed By: #### CK, HSTROPN, CMP, BNP #### [facility] [address] [place] [address] Dr. Tan Sanchez to perform testing due to color interference. AbnormalNEGATIVECleveland Clinic [facility]ron General HospitalComment on above:Performed By: #### CK, HSTROPN, CMP, BNP #### [facility] Laboratory [address] [address] [address] Tan Serranoite Ql (U)Unable to perform testing due to color interference.AbnormalNEGATIVECleveland Clinic Akron General HospitalComment on above:Performed By: #### CK, HSTROPN, CMP, BNP #### [facility] Laboratory [address] [address] [address] Tan Triplett to perform testing due to color interference.Abnormal5-9 The Tamiko HospitalComment on above:Performed By: #### CK, HSTROPN, CMP, BNP #### [facility] [address] [address] [address] Tan OliverosSPEC GRAVITY<=1.420Avxtjzgw2.005-<=1.025The [facility] Comment on above:Performed By: #### CK, HSTROPN, CMP, BNP #### [facility] Laboratory [address] [place] [address] Dr. Tan Yang PROTEINUnadenisa to perform testing due to color interference. NormalNEGATIVE/ TRACEThe [facility] HospitalComment on above:Performed By: #### CK, HSTROPN, CMP, BNP #### [facility] Laboratory [address] [place] [address] Dr. Tan Mejia MICRO INDINDICATEDNormalThe [facility] HospitalComment on above: Performed By: #### CK, HSTROPN, CMP, BNP #### [facility] [address] [place] [address] Dr. Tan BarretoBILINOGENCarmelita to perform testing due to color interference. Normal0.2 - 1.0The [facility] HospitalComment on above:Performed By: #### CK, HSTROPN, CMP, BNP #### [facility] [address] [place] [address] Dr. Tan OliverosPROF 14(COMP METB)on [id number] [Mass/Vol]3.8 g/dLNormal 3.4-5.0The [facility] HospitalComment on above:Performed By: #### CK, HSTROPN, CMP, BNP #### [facility] [address] [place] [address] Dr. Tan OliverosAlbumin/Globulin [Mass ratio]1.3 {ratio}NormalThe [facility] on above:Performed By: #### CK, HSTROPN, CMP, BNP #### [facility] [address] [place] [address] Dr. Tan CrowderP [Catalytic activity/Vol]81 U/JCmotug84-880Naj Toponas HospitalComment on above:Performed By: #### CK, HSTROPN, CMP, BNP #### [facility] Laboratory [address] [address] [address] Tan Kay [Catalytic activity/Vol]20 U/WZlrmgc22-55Hrm [facility] HospitalComment on above:Performed By: #### CK, HSTROPN, CMP, BNP #### [facility] Laboratory [address] [address] [address] Tan Camachoon gap [Moles/Vol]14.3 mmol/LNormalThe [facility] Comment on above:Performed By: #### CK, HSTROPN, CMP, BNP #### [facility] Laboratory [address] [place] [address] Dr. Tan Dawson [Catalytic activity/Vol]26 U/LLsermn31-91Zrj [facility] HospitalComment on above:Performed By: #### CK, HSTROPN, CMP, BNP #### [facility] Laboratory [address] [place] [address] Dr. Tan OliverosBilirubin [Mass/Vol]0.7 mg/dLNormal0.2-1.0[facility] Comment on above:Performed By: #### CK, HSTROPN, CMP, BNP #### [facility] [address] [place] [address] Dr. Tan OliverosCalcium [Mass/Vol]8.9 mg/dLNormal8.5-10.1[facility] Comment on above:Performed By: #### CK, HSTROPN, CMP, BNP #### [facility] [address] [place] [address] Dr. Tan OliverosChloride [Moles/Vol]101 mmol/AMskdww70-579BevSelect Medical Trihealth Rehabilitation Hospital Comment on above:Performed By: #### CK, HSTROPN, CMP, BNP #### [facility] [address] [place] [address] Dr. Tan OliverosCO2 [Moles/Vol]27.9 mmol/MKfwfjy00.0-32.0[facility] Comment on above:Performed By: #### CK, HSTROPN, CMP, BNP #### [facility] [address] [place] [address] Dr. Tan OliverosCreatinine [Mass/Vol]1.85 mg/dLCritically high0.70-1.30The [facility] HospitalComment on above:Performed By: #### CK, HSTROPN, CMP, BNP #### [facility] [address] [place] [address] Dr. Maddox ChangEGFR-AF IXZUGOZC61 mL/min/1.76s3Hgohibrrva low>=60The [facility] HospitalComment on above:Performed By: #### CK, HSTROPN, CMP, BNP #### [facility] [address] [place] [address] Dr. Tan SantosGFR-NON AF SSJNGRAG56 mL/min/1.51n7Lpgythgtor low>=60The [facility] HospitalComment on above:Performed By: #### CK, HSTROPN, CMP, BNP #### [facility] [address] [place] [address] Dr. Tan OliverosGlobulin (S) [Mass/Vol]3.0 g/dLNormalThe [facility] HospitalComment on above:Performed By: #### CK, HSTROPN, CMP, BNP #### [facility] [address] [place] [address] Dr. Tan OliverosGlucose [Mass/Vol]114 mg/dLCritically ubsj35-556Szz [facility] on above:Performed By: #### CK, HSTROPN, CMP, BNP #### [facility] [address] [place] [address] Dr. Tan OliverosPotassium [Moles/Vol]4.2 mmol/LNormal3.5-5.1[facility] Comment on above:Performed By: #### CK, HSTROPN, CMP, BNP #### [facility] [address] [place] [address] Dr. Tan OliverosProtein [Mass/Vol]6.8 g/dLNormal6.4-8.2The [facility] Comment on above:Performed By: #### CK, HSTROPN, CMP, BNP #### [facility] [address] [address] [address] Tan Leonardum [Moles/Vol]139 mmol/ROyucrd247-553Axn [facility] Comment on above:Performed By: #### CK, HSTROPN, CMP, BNP #### [facility] [address] [address] [address] Tan Regan nitrogen [Mass/Vol]27.0 mg/dLCritically high7.0-18.0The [facility] HospitalComment on above:Performed By: #### CK, HSTROPN, CMP, BNP #### [facility] [address] [place] [address] Dr. Tan Regan nitrogen/Creatinine [Mass ratio]14.6 mg/mgNoOhioHealthComment on above:Performed By: #### CK, HSTROPN, CMP, BNP #### [facility] [address] [place] [address] Dr. Tan Wells [id number] Coag (PPP) [Relative time]0.99 {INR} NormalSelect Medical Trihealth Rehabilitation HospitalComment on above:Performed By: #### CK, HSTROPN, CMP, BNP #### [facility] [address] [place] [address] Dr. Tan Muller GUIDELINESSEE BELOWMercy Health St. Anne HospitalComment on above:Result Comment: DESIRED INR: 2.0 - 3.0 CONDITIONS NOT LISTED BELOW 2.5 - 3.5 FOR PROSTHETIC HEART VALVE REPLACEMENT 2.5 - 3.5 RECURRENT THROMBOSIS Performed By: #### CK, HSTROPN, CMP, BNP #### [facility] [address] [place] [address] Dr. Tan Porter Coag (PPP) [Time]10.5 sNormal9.0-11.6The [facility] Comment on above:Performed By: #### CK, HSTROPN, CMP, BNP #### [facility] [address] [place] [address] Dr. Tan Barbosa [id number] Coag (Bld) [Time]28.4 qPnfwtv10.3-36.2[facility] on above:Performed By: #### CK, HSTROPN, CMP, BNP #### [facility] [address] [address] [address] Tan TERRAZAS ONLYon [id number]N SEEN [facility] on above:Performed By: #### CK, HSTROPN, CMP, BNP #### [facility] [address] [address] [address] Tan Hoff identified Cx Nom (U)CX ALREADY ORDEREDNoPremier Health Atrium Medical Center on above:Performed By: #### CK, HSTROPN, CMP, BNP #### [facility] [address] [place] [address] Dr. Tan Hinkle SEENNormalNONE SEENBarberton Citizens Hospital on above:Performed By: #### CK, HSTROPN, CMP, BNP #### [facility] [address] [address] [address] Tan Yo LM Nom (Urine sed)NONE SEENNormalNONE SEENBarberton Citizens Hospital on above:Performed By: #### CK, HSTROPN, CMP, BNP #### [facility] [address] [address] [address] Maddox ChangEpithelial cells LM Ql (Urine sed)NONE SEENNormalNONE SEEN /RARE [facility] on above:Performed By: #### CK, HSTROPN, CMP, BNP #### [facility] [address] [address] [address] Tan OliverosCOUSNONE SEENNormalNONE SEENBarberton Citizens Hospital on above:Performed By: #### CK, HSTROPN, CMP, BNP #### [facility] [address] [address] [address] Tan Dodge (U) [#/Vol]/uLAbnormal0-2The [facility] HospitalComment on above:Performed By: #### CK, HSTROPN, CMP, BNP #### [facility] [address] [place] [address] Dr. Tan MuñizBC0-2AbnormalNONE SEENThe [facility] HospitalComment on above: Performed By: #### CK, HSTROPN, CMP, BNP #### [facility] [address] [place] [address] Dr. Tan OliverosINSULINon [id number] uIU/mLNormal2.6-24.9The [facility] HospitalComment on above:Performed By: #### CK, HSTROPN, CMP, BNP #### [facility] [address] [place] [address] Dr. Tan Cavanaugh [id number] peptide B (Bld) [Mass/Vol]715.0 pg/mL Normal<=1,800.0The [facility] HospitalComment on above:Performed By: #### CK, HSTROPN, CMP, BNP #### [facility] [address] [place] [address] Dr. Tan Villagomez AUTO DIFFon [id number] #0.0 103/ulNormal0.0-0.1The [facility] HospitalComment on above:Performed By: #### CK, HSTROPN, CMP, BNP #### [facility] [address] [place] [address] Dr. Tan Villasophils/100 WBC (Bld)0.7 %Normal0.2-2.0The [facility] Comment on above:Performed By: #### CK, HSTROPN, CMP, BNP #### [facility] [address] [place] [address] Dr. Tan Ram #0.1 103/ulNormal0.0-0.7The [facility] HospitalComment on above: Performed By: #### CK, HSTROPN, CMP, BNP #### [facility] Laboratory [address] [place], [place] [address] Dr. Tan Santososinophils/100 WBC (Bld)2.1 %Normal0.9-7.0The [facility] Comment on above:Performed By: #### CK, HSTROPN, CMP, BNP #### [facility] [address] [place] [address] Dr. Tan Santosrythrocyte distribution width (RBC) [Ratio]15.9 %Critically high 11.0-15.0The [facility] HospitalComment on above:Performed By: #### CK, HSTROPN, CMP, BNP #### [facility] [address] [place] [address] Dr. Tan OliverosHematocrit (Bld) [Volume fraction]45.1 %Kpjeia39.0-54.0The [facility] HospitalComment on above:Performed By: #### CK, HSTROPN, CMP, BNP #### [facility] [address] [place] [address] Dr. Tan OliverosHemoglobin (Bld) [Mass/Vol]14.1 g/wVRkovbl84.0-18.0The [facility] HospitalComment on above:Performed By: #### CK, HSTROPN, CMP, BNP #### [facility] [address] [place] [address] Dr. Tan Panchal #0.02 10e3/ulNormal0.00-0.03The [facility] HospitalComment on above:Performed By: #### CK, HSTROPN, CMP, BNP #### [facility] [address] [place] [address] Dr. Tan Panchal %0.3 %Normal0.0-0.5The [facility] HospitalComment on above: Performed By: #### CK, HSTROPN, CMP, BNP #### [facility] [address] [place] [address] Dr. Tan LuqueMPH #0.7 103/ulCritically low1.2-3.8The [facility] Comment on above:Performed By: #### CK, HSTROPN, CMP, BNP #### [facility] [address] [place] [address] Dr. Tan Luquemphocytes/100 WBC (Bld)12.4 %Critically low20.5-60.0The [facility] HospitalComment on above:Performed By: #### CK, HSTROPN, CMP, BNP #### [facility] [address] [place] [address] Dr. Tan BrizuelaUAL DIFF REQNONormalThe Toponas HospitalComment on above: Performed By: #### CK, HSTROPN, CMP, BNP #### [facility] [address] [place] [address] Dr. Tan Duarte (RBC) [Entitic mass]23.7 pgCritically low25.9-34.0The [facility] HospitalComment on above:Performed By: #### CK, HSTROPN, CMP, BNP #### [facility] [address] [place] [address] Dr. Tan Duarte (RBC) [Mass/Vol]31.3 g/qNTaddjj27.9-35.2The [facility] HospitalComment on above:Performed By: #### CK, HSTROPN, CMP, BNP #### [facility] [address] [place] [address] Dr. Tan Duarte (RBC) [Entitic vol]75.7 fLCritically low80.0-94.0The [facility] HospitalComment on above:Performed By: #### CK, HSTROPN, CMP, BNP #### [facility] [address] [place] [address] Dr. Tan Torres #0.4 103/ulNormal0.3-0.8The [facility] HospitalComment on above:Performed By: #### CK, HSTROPN, CMP, BNP #### [facility] [address] [place] [address] Dr. Tan Riveraocytes/100 WBC (Bld)6.8 %Normal1.7-12.0The [facility] Comment on above:Performed By: #### CK, HSTROPN, CMP, BNP #### [facility] [address] [place] [address] Dr. Tan Goode #4.5 103/ulNormal1.4-6.5The [facility] HospitalComment on above:Performed By: #### CK, HSTROPN, CMP, BNP #### [facility] [address] [place] [address] Dr. Tan Cardosoophils/100 WBC (Bld)77.7 %Critically high43.0-75.0The [facility] HospitalComment on above:Performed By: #### CK, HSTROPN, CMP, BNP #### [facility] [address] [place] [address] Dr. Tan Murray mean volume (Bld) [Entitic vol]9.3 fLCritically low 9.5-13.5The [facility] HospitalComment on above:Performed By: #### CK, HSTROPN, CMP, BNP #### [facility] [address] [place] [address] Dr. aTn OliverosPLT205 103/aqReawsf661-650Kcg [facility] HospitalComment on above: Performed By: #### CK, HSTROPN, CMP, BNP #### [facility] [address] [place] [address] Dr. Tan OliverosRBC5.96 106/ulNormal4.70-6.10The [facility] HospitalComment on above:Performed By: #### CK, HSTROPN, CMP, BNP #### [facility] [address] [place] [address] Dr. Tan OliverosWBC5.7 103/ulNormal4.0-11.0The [facility] HospitalComment on above: Performed By: #### CK, HSTROPN, CMP, BNP #### [facility] [address] [place] [address] Dr. Tan Kee THYROXINE INDEX T7on [id number]0-4.50The [facility] HospitalComment on above:Performed By: #### CK, HSTROPN, CMP, BNP #### [facility] [address] [address] [address] Tan OliverosT3U36.0 %Avuqla50.0-40.0The [facility] HospitalComment on above: Performed By: #### CK, HSTROPN, CMP, BNP #### [facility] [address] [address] [address] Tan OliverosT4 [Mass/Vol]6.50 ug/dLNormal4.50-12.10The [facility] Comment on above:Performed By: #### CK, HSTROPN, CMP, BNP #### [facility] [address] [place] [address] Dr. Tan OliverosGLYCOHEMOGLOBIN A1Con [id number] RECOMMENDATIONSEE BELOWNormal The [facility] HospitalComment on above:Result Comment: ADA RECOMMENDED LIMIT 4.0 - 6.0 ADA THERAPEUTIC TARGET < 7.0 ACTION SUGGESTED > 7.0Performed By: #### CK, HSTROPN, CMP, BNP #### [facility] [address] [place] [address] Dr. Tan OliverosGlucose [Mass/Vol]114 mg/dLNormalThCleveland Clinic Children's Hospital for RehabilitationComment on above:Performed By: #### CK, HSTROPN, CMP, BNP #### [facility] [address] [place] [address] Dr. Tan OliverosHbA1c (Bld) [Mass fraction]5.6 %Normal4.5-6.2The [facility] HospitalComment on above:Performed By: #### CK, HSTROPN, CMP, BNP #### [facility] [address] [place] [address] Dr. Tan Fair [id number] [Mass/Vol]40.0 ug/dLCritically low 65.0-175.0The [facility] HospitalComment on above:Performed By: #### IRON, PSASC, VITAD #### [facility] [address] [place] [address] Dr. Tan OliverosLIPID PROFILEon [id number]-HDL RATIO NORMSLake County Memorial Hospital - WestComment on above:Result Comment: 3.3 - 4.4 LOW RISK 4.4 - 7.1 AVERAGE RISK 7.1 - 11.0 MODERATE RISK >11.0 HIGH RISKPerformed By: #### BNP, T7, CMP, TSH, LIPID #### [facility] [address] [address] [address] Tan OliverosCholesterol [Mass/Vol]159 mg/dLNormal<=200[facility] Comment on above:Performed By: #### BNP, T7, CMP, TSH, LIPID #### [facility] [address] [address] [address] Tan Pinedaesterol in HDL [Mass/Vol]66 mg/dLCritically hqrz45-06DzkSelect Medical Trihealth Rehabilitation HospitalComment on above:Performed By: #### BNP, T7, CMP, TSH, LIPID #### [facility] [address] [address] [address] Tan Pinedaesterol in LDL [Mass/Vol]82.4 mg/dLMercy Health St. Anne HospitalComment on above:Performed By: #### BNP, T7, CMP, TSH, LIPID #### [facility] [address] [address] [address] Tan Wells.total/Cholesterol in HDL [Mass ratio]2.4 {ratio} NormalSelect Medical Trihealth Rehabilitation HospitalComment on above:Performed By: #### BNP, T7, CMP, TSH, LIPID #### [facility] [address] [place] [address] Dr. Tan Monroy NORMAL> or = 60 mg/dl - LOW CARDIOVASCULAR RISK <40 mg/dl - HIGH CARDIOVASCULAR RISKMercy Health St. Anne HospitalComment on above:Performed By: #### BNP, T7, CMP, TSH, LIPID #### [facility] [address] [place] [address] Dr. Tan OliverosLDL CALC NORMALSEE Fairfield Medical CenterComment on above:Result Comment: <100 mg/dl OPTIMAL 100 - 129 mg/dl NEAR OR ABOVE OPTIMAL 130 - 159 mg/dl BORDERLINE HIGH 160 - 189 mg/dl HIGH >190 mg/dl VERY HIGH Performed By: #### BNP, T7, CMP, TSH, LIPID #### [facility] [address] [address] [address] Tan OliverosTriglyceride [Mass/Vol]53 mg/dLNormal<=150The [facility] Comment on above:Performed By: #### BNP, T7, CMP, TSH, LIPID #### [facility] [address] [address] [address] Tan OliverosVLDL CALC10.6 mg/dLNormalThe [facility] HospitalComment on above: Performed By: #### BNP, T7, CMP, TSH, LIPID #### [facility] [address] [address] [address] Tan OliverosPROCristi 14(COMP METB)on [id number] [Mass/Vol]3.9 g/dLNormal 3.4-5.0The [facility] HospitalComment on above:Performed By: #### CK, HSTROPN, CMP, BNP #### [facility] [address] [address] [address] Tan OliverosAlbumin/Globulin [Mass ratio]1.2 {ratio}NormalThe [facility] HospitalComment on above:Performed By: #### CK, HSTROPN, CMP, BNP #### [facility] [address] [address] [address] Tan Patel [Catalytic activity/Vol]94 U/VOauciy91-540Tbq [facility] HospitalComment on above:Performed By: #### CK, HSTROPN, CMP, BNP #### [facility] [address] [address] [address] Tan Kay [Catalytic activity/Vol]17 U/VJdzhaz62-23Kps [facility] HospitalComment on above:Performed By: #### CK, HSTROPN, CMP, BNP #### [facility] [address] [address] [address] Tan Montesinos gap [Moles/Vol]12.9 mmol/LNormalThe [facility] Comment on above:Performed By: #### CK, HSTROPN, CMP, BNP #### [facility] [address] [address] [address] Tan OliverosAST [Catalytic activity/Vol]20 U/DVxthqv08-43Nbz [facility] HospitalComment on above:Performed By: #### CK, HSTROPN, CMP, BNP #### [facility] [address] [address] [address] Tan OliverosBilirubin [Mass/Vol]0.4 mg/dLNormal0.2-1.0The [facility] Comment on above:Performed By: #### CK, HSTROPN, CMP, BNP #### [facility] [address] [place] [address] Dr. Tan OliverosCalcium [Mass/Vol]9.1 mg/dLNormal8.5-10.1[facility] Comment on above:Performed By: #### CK, HSTROPN, CMP, BNP #### [facility] [address] [place] [address] Dr. Tan OliverosChloride [Moles/Vol]106 mmol/YSviekj86-766Owh [facility] Comment on above:Performed By: #### CK, HSTROPN, CMP, BNP #### [facility] [address] [place] [address] Dr. Tan OliverosCO2 [Moles/Vol]29.1 mmol/ZWejdke40.0-32.0The [facility] Comment on above:Performed By: #### CK, HSTROPN, CMP, BNP #### [facility] [address] [place] [address] Dr. aTn OliverosCreatinine [Mass/Vol]1.98 mg/dLCritically high0.70-1.30The [facility] HospitalComment on above:Performed By: #### CK, HSTROPN, CMP, BNP #### [facility] [address] [place] [address] Dr. Maddox ChangEGFR-AF ILBSZSHK12 mL/min/1.99r8Yyizulodgt low>=60The [facility] HospitalComment on above:Performed By: #### CK, HSTROPN, CMP, BNP #### [facility] [address] [place] [address] Dr. Tan SantosGFR-NON AF NNZQVICB76 mL/min/1.06b7Vsghfmmgrx low>=60The [facility] HospitalComment on above:Performed By: #### CK, HSTROPN, CMP, BNP #### [facility] [address] [place] [address] Dr. Tan OliverosGlobulin (S) [Mass/Vol]3.3 g/dLNormalThe [facility] HospitalComment on above:Performed By: #### CK, HSTROPN, CMP, BNP #### [facility] [address] [place] [address] Dr. Tan OliverosGlucose [Mass/Vol]108 mg/dLCritically wjfs90-377Ktd [facility] HospitalComment on above:Performed By: #### CK, HSTROPN, CMP, BNP #### [facility] [address] [place] [address] Dr. Tan OliverosPotassium [Moles/Vol]4.0 mmol/LNormal3.5-5.1The [facility] Comment on above:Performed By: #### CK, HSTROPN, CMP, BNP #### [facility] [address] [place] [address] Dr. Tan OliverosProtein [Mass/Vol]7.2 g/dLNormal6.4-8.2The [facility] Comment on above:Performed By: #### CK, HSTROPN, CMP, BNP #### [facility] [address] [place] [address] Dr. Tan OliverosSodium [Moles/Vol]144 mmol/XMocskg809-290Yoe [facility] Comment on above:Performed By: #### CK, HSTROPN, CMP, BNP #### [facility] [address] [place] [address] Dr. Tan OliverosUrea nitrogen [Mass/Vol]43.0 mg/dLCritically high7.0-18.0The [facility]onas HospitalComment on above:Performed By: #### CK, HSTROPN, CMP, BNP #### [facility] [address] [place] [address] Dr. Tan OliverosUrea nitrogen/Creatinine [Mass ratio]21.7 mg/mgNoOhioHealthCominsight surgical hospital on above:Performed By: #### CK, HSTROPN, CMP, BNP #### [facility] [address] [place] [address] Dr. Tan Mesa 74-82-0876NXI0.331 uIU/mLNormal0.358-3.740[facility] on above:Performed By: #### CK, HSTROPN, CMP, BNP #### [facility] [address] [place] [address] Dr. Tan OliverosVITAMIN D 25 OHon [id number] D 25-OH40.9 ng/mLNormalBarberton Citizens Hospital on above:Performed By: #### IRON, PSASC, VITAD #### [facility] [address] [place] [address] Dr. Tan Petit [facility] [place], [facility]Com[facility] on above: Result Comment: <20 ng/mL Vit D deficient 20 - <30 ng/mL Vit D insufficient 30 - 100 ng/mL Vit D sufficient >100 ng/mL Potential ToxicityPerformed By: #### IRON, PSASC, VITAD #### [facility] [address] [place] [address] Dr. Tan OliverosURINALYSIS, REFLEX MICROSCOPICon [id number] Ql (U) NegativeNegativeCleveland ClinicClarity (Unsp spec)CloudyAbnormalClearCleveland ClinicColor (U)Light OrangeAbnormalYellowCleveland ClinicGlucose Test strip (U) [Mass/Vol]4+AbnormalNegativeCleveland ClinicHemoglobin Ql (U)3+AbnormalNegative Maldonado ClinicHyaline casts (Urine sed) [#/Area]1-3 /LPFAbnormal0 /LPF [facility]ado ClinicKetones Ql (U)NegativeNegativeCleveland ClinicLeukocyte esterase Test strip Ql (U)NegativeNegativeHolzer Medical Center – JacksonNitrite Ql (U)NegativeNegative Miami ClinicpH (U)5.5 [pH]5.0 - 8.0Miami ClinicProtein (U) [Mass/Vol]1+ AbnormalNegativeHolzer Medical Center – JacksonRBC LM.HPF (Urine sed) [#/Area]/[HPF]Abnormal0-3 /HPFTriHealth Good Samaritan Hospitalpecific gravity (U) [Rel density]1.0191.005 - 1.030 [facility] – JacksonUrobilinogen Ql (U)NegativeNegativeHolzer Medical Center – JacksonWBC LM.HPF (Urine sed) [#/Area]0-5 /HPF0-5 /HPFHolzer Medical Center – JacksonURINE CULTUREon 03-17-2022 Bacteria identified Cx Nom (U)No growth (<1,000 CFU/ml)[facility] – JacksonTYPE AND SCREEN,30 DAYon 09-44-1607OWIHXkygporhc ClinicHIstorical Ab Scr StatusNegative [facility] – JacksonRh Nom (Bld)PositiveCleMercy HealthCT UROGRAM WO/W IVCONon 52-50-2148Sxrwgmqxg ClinicDipstick and Microscopicon 45-50-5722Udsvevsvvd Nom (U)CloudyCritically abnormalCleThe University of Toledo Medical CenterComment on above:Order Comment: Name Collection Type:: Clean-Voided MidstreamPerformed By: #### ADDONUAPLUS, CUU #### [facility] [address] [id number] USABacteria LM.HPF #/area (Urine sed)None SeenNormalNone Seen [facility]edo HospitalComment on above:Order Comment: Name Collection Type:: Clean-Voided MidstreamPerformed By: #### ADDONUAPLUS, CUU #### [facility] [address] [place] [address] USABilirubin,UrineNegativeNormalNegativeToledo HospitalComment on above:Order Comment: Name Collection Type:: Clean- Voided MidstreamPerformed By: #### ADDONUAPLUS, CUU #### [facility] [address] [place] [address] USAColor Nom (U)YellowNormalYellowToledo HospitalComment on above:Order Comment: Name Collection Type:: Clean-Voided MidstreamPerformed By: #### ADDONUAPLUS, CUU #### [place] [address] USAGlucose Ql (U)NormalNormalNormMetroHealth Main Campus Medical CenterComment on above:Order Comment: Name Collection Type:: Clean-Voided MidstreamPerformed By: #### ADDONUAPLUS, CUU #### [place] [address] USAHyaline Casts,Zwxrw2-7Vmszgk6-2ZqfmiyvmoToledo HospitalComment on above:Order Comment: Name Collection Type:: Clean-Voided MidstreamResult Comment: PERFORMED BY: [place] [address] PATHOLOGIST JAVA MANAGER LEONARD MCCLAIN M.D.Performed By: #### ADDONUAPLUS, CUU #### [place] [address] USAKetones Ql (U)NegativeNormalNegMercy Health St. Vincent Medical CenterComment on above:Order Comment: Name Collection Type:: Clean- Voided MidstreamPerformed By: #### ADDONUAPLUS, CUU #### [place] [address] USALeukocyte esterase Test strip Ql (U)4+HighNegative Toledo HospitalComment on above:Order Comment: Name Collection Type:: Clean-Voided MidstreamPerformed By: #### ADDONUAPLUS, CUU #### [place] [address] USANitrite,UrineNegativeNormcoNegMercy Health St. Vincent Medical CenterComment on above:Order Comment: Name Collection Type:: Clean- Voided MidstreamPerformed By: #### ADDONUAPLUS, CUU #### [place] [address] USAOccult Blood,Urine3+HighNegativeToledo HospitalComment on above:Order Comment: Name Collection Type:: Clean-Voided MidstreamResult Comment: PERFORMED BY: [place] [address] PATHOLOGIST JAVA MANAGER LEONARD MCCLAIN M.D.Performed By: #### JONATHAN, CUU #### [place] [address] USApH (U)7.0 [pH]Normal5.0-9.0T[place]edo HospitalComment on above:Order Comment: Name Collection Type:: Clean-Voided MidstreamPerformed By: #### ADDRICHYPLUS, CUU #### [place] [address] USAProtein mass conc (U)30 mg/dLHighNegativeToledo HospitalComment on above:Order Comment: Name Collection Type:: Clean-Voided MidstreamPerformed By: #### ADDNOEL, CUU #### [place] [address] USARBC LM.HPF #/area (Urine sed)InnumerableHigh0-4FMemorial Health System Marietta Memorial HospitalComment on above:Order Comment: Name Collection Type:: Clean-Voided MidstreamPerformed By: #### JONATHAN, CUU #### [place] [address] USASpecificy [place],Urine1.839Emfbzs4.001-1.030Toledo HospitalComment on above:Order Comment: Name Collection Type:: Clean-Voided MidstreamPerformed By: #### ADDONKAITLINPLUS, CUU #### [place] [address] USASquamous Epithelial Cell,UrineNone SeenNormal0-2FMemorial Health System Marietta Memorial HospitalComment on above:Order Comment: Name Collection Type:: Clean-Voided MidstreamPerformed By: #### ADDONUAPLUS, CUU #### [place] [address] USAUrobilinogen,UrineNormalNormalNormalToledo HospitalComment on above:Order Comment: Name Collection Type:: Clean- Voided MidstreamPerformed By: #### JONATHAN, CUU #### [facility] [address] LM.HPF #/area (Urine sed)InnumerableGrant Memorial Hospital0-[address] [place], [place] [address]Comment on above:Order Comment: Name Collection Type:: Clean-Voided MidstreamPerformed By: #### JONATHAN, CUU #### [facility] [address] [id number] USALon 02-23-2019 Specimen: [id number] Received: 02/23/19 Status: MALCOLM Mendez Num: [id number] Spec Type: Cytology Subm Dr: Jian Rodriguez MD Tissues: A CYTOSLIDE (URINE) Procedures: Pap Stain/2 Patient Age/Sex Location Account Attending Physician Juan Jose Austin Sr 78/M [place] [id number] Jian Rodriguez MD SPEC NUM: [id number] RECD: 02/23/19 STATUS: MALCOLM MENDEZ NUM: [id number] ALEKSANDR: 02/23/[address] [facility] [address]: Jian Rodriguez MD ENTERED: 02/23/19 [facility]: FARRAH TYPE: Cytology DEPT: CN ORDERED: [...] examined. Microscopic examination supports the pathologic diagnosis. [id number] Specimen: [id number] Received: 02/23/19 Status: MALCOLM Mendez Num: [id number] Spec Type: Cytology Subm Dr: Jian Rodriguez MD Tissues: A CYTOSLIDE (URINE) Procedures: Pap Stain/2 Patient: Juan Jose Austin Shirley Sr [id number] (Continued) Signed (signature on file) Julio Cesar Carr MD 02/24/19 1700 [facility] CenterUrine Cultureon [id number] identified Cx Nom (U)ORGANISM: Pseudomonas aeruginosa (O:PSEAER) [place] Count >100,000 100,000 CFU/ML OTHER MIXED BACTERIAL [...] RESISTANT TO ALL B-LACTAM DRUGS. PERFORMED BY: [address] [address] PATHOLOGIST JAVA MANAGER LEONARD MCCLAIN M.D.[facility] CenterComment on above: Performed By: #### JAMAR CASTILLO #### [address] [address] [facility] Vital Signs Date TimeVital SignValuePerforming KybnuflolBqworljf56-82-6338 08:47-0400Body hpfnakgbrxm36.4 [degF]Harpreet Avalos INSURANCE VERIFICATION REP-FICTION AND NONFICTION WRITER PROSE Work Phone: [facility]08-04-2025 08:47-0400Diastolic blood vnumekyy03 mm[Hg]Harpreet Avalos INSURANCE VERIFICATION REP-FICTION AND NONFICTION WRITER PROSE Work Phone: [facility]08-04-2025 08:47-0400Heart rate 74 /minHarpreet Avalos INSURANCE VERIFICATION REP-FICTION AND NONFICTION WRITER PROSE Work Phone: [facility]08-04-2025 08:47-0400 Respiratory rate18 /minHarpreet Avalos INSURANCE VERIFICATION REP-FICTION AND NONFICTION WRITER PROSE Work Phone: [facility]08-04-2025 08:47-0400Systolic blood zkvegrdy884 mm[Hg]Harpreet Avalos INSURANCE VERIFICATION REP-FICTION AND NONFICTION WRITER PROSE Work Phone: [facility]07-26-2025 10:04-0400Body xbmzgu132.6 cmBrblank Mary INSURANCE VERIFICATION REP-FICTION AND NONFICTION WRITER PROSE Work Phone: [facility] [employer] Zmcaqc11-44-4859 10:04-0400Body mass index (BMI) [Ratio]27.98 kg/v7NwybctaChago Hernandez INSURANCE VERIFICATION REP-FICTION AND NONFICTION WRITER PROSE Work Phone: [facility]07-26-2025 10:04-0400Body grhalm29.94 kgBrianna Dechristopher INSURANCE VERIFICATION REP-FICTION AND NONFICTION WRITER PROSE Work Phone: [facility] [employer] Ljvuii44-87-1932 10:04-0400Diastolic blood bxfvrzem12 mm[Hg]Chago Montillaer INSURANCE VERIFICATION REP-FICTION AND NONFICTION WRITER PROSE Work Phone: [facility]07-26-2025 10:04-0400Heart rate 71 /minChago Wuopher INSURANCE VERIFICATION REP-FICTION AND NONFICTION WRITER PROSE Work Phone: [facility]07-26-2025 10:04-3149VyA7% (BldA) [Mass fraction]98 %Chago Decistopher INSURANCE VERIFICATION REP-FICTION AND NONFICTION WRITER PROSE Work Phone: [facility]07-26-2025 10:04-0400Systolic blood iszyguga815 mm[Hg]Chago Wuopher INSURANCE VERIFICATION REP-FICTION AND NONFICTION WRITER PROSE Work Phone: [facility] [employer] Ysygyd81-14-9065 15:01-0400Body xqmaconfbgj26.6 [degF]Harpreet Avalos INSURANCE VERIFICATION REP-FICTION AND NONFICTION WRITER PROSE Work Phone: [facility]07-21-2025 15:01-0400Diastolic blood griqvfzd12 mm[Hg]Harpreet Avalos INSURANCE VERIFICATION REP-FICTION AND NONFICTION WRITER PROSE Work Phone: [facility]07-21-2025 15:01-0400Heart rate 75 /minHarpreet Avalos INSURANCE VERIFICATION REP-FICTION AND NONFICTION WRITER PROSE Work Phone: [facility]07-21-2025 15:01-0400 Respiratory rate18 /minHarpreet Avalos INSURANCE VERIFICATION REP-FICTION AND NONFICTION WRITER PROSE Work Phone: [facility]07-21-2025 15:01-0400Systolic blood mm[Hg]Harpreet Avalos INSURANCE VERIFICATION REP-FICTION AND NONFICTION WRITER PROSE Work Phone: [facility]01-10-2025 09:01-0500Body mass index (BMI) [Ratio]29.23 kg/y7ImummGraeme Vazquez MD Work Phone: [facility]01-10-2025 09:01-0500Body temperature 97.7 [degF]Graeme Vazquez MD Work Phone: [facility]01-10-2025 09:01-0500Body .7 kgGraeme Vazquez MD Work Phone: [facility]01-10-2025 09:01-0500Diastolic blood mm[Hg]Graeme Vazquez MD Work Phone: [facility]01-10-2025 09:01-0500Heart rate63 /min Graeme Vazquez MD Work Phone: [facility]01-10-2025 09:01-0500Respiratory rate 18 /minGraeme Vazquez MD Work Phone: [facility]01-10-2025 09:01-5456EjO7% (BldA) [Mass fraction]98 %Graeme Vazquez MD Work Phone: [facility]01-10-2025 09:01-0500Systolic blood mm[Hg]Graeme Vazquez MD Work Phone: [facility]11-28-2024 20:54-0500Body temperature 98.01 [degF]Leni Santiago MD Work Phone: bon [facility]11-28-2024 20:54-0500Diastolic blood wkeskrxf31 mm[Hg]Leni Santiago MD Work Phone: [facility]11-28-2024 20:54-0500Heart rate60 /Fawad Santiago MD Work Phone: [place] [address]-28-2024 20:54-0500 Respiratory rate18 /Fawad Santiago MD Work Phone: [facility]11-28-2024 20:54-7477CmY4% (BldA) [Mass fraction]98 %Leni Santiago MD Work Phone: [place] [address]-28-2024 20:54-0500Systolic blood pevnafxf874 mm[Hg]Leni Santiago MD Work Phone: bgerhard [facility]11-08-2024 09:22-0500Body xehjpc965 cmVbritany Vazquez MD Work Phone: [facility]11-08-2024 09:22-0500Body mass index (BMI) [Ratio]28.12 kg/w4XtifaGraeme Vazquez MD Work Phone: [facility]11-08-2024 09:22-0500Body temperature 97.2 [degF]Graeme Vazquez MD Work Phone: [facility]11-08-2024 09:22-0500Body .8 kgGraeme Vazquez MD Work Phone: [facility]11-08-2024 09:22-0500Diastolic blood mm[Hg]Graeme Vazquez MD Work Phone: [facility]11-08-2024 09:22-0500Heart rate64 /min Graeme Vazquez MD Work Phone: [facility]11-08-2024 09:22-0500Respiratory rate 16 /minGraeme Vazquez MD Work Phone: [facility]11-08-2024 09:22-7152GuM4% (BldA) [Mass fraction]98 %Graeme Vazquez MD Work Phone: [facility]11-08-2024 09:22-0500Systolic blood akwcusht177 mm[Hg]Graeme Vazquez MD Work Phone: [facility]08-05-2024 12:47-0400Body azxrqy560 cm Graeme Vazquez MD Work Phone: [facility] JacksonComment on above:verifed by 2 no shoes 05-18-2024 12:47-0400Body mass index (BMI) [Ratio]26.18 kg/z9XdvqqGraeme Vazquez MD Work Phone: [facility]08-05-2024 12:47-0400Body temperature 97.11 [degF]Graeme Vazquez MD Work Phone: [facility]08-05-2024 12:47-0400Body vxormd11.7 kgGraeme Vazquez MD Work Phone: [facility]08-05-2024 12:47-0400Diastolic blood vcwndyqe44 mm[Hg]Graeme Vazquez MD Work Phone: [facility]08-05-2024 12:47-0400Heart rate66 /min Graeme Vazquez MD Work Phone: [facility]08-05-2024 12:47-0400Respiratory rate 16 /minGraeme Vazquez MD Work Phone: [facility]08-05-2024 12:47-4756YkB8% (BldA) [Mass fraction]99 %Graeme Vazquez MD Work Phone: [facility]08-05-2024 12:47-0400Systolic blood befqtnbx609 mm[Hg]Graeme Vazquez MD Work Phone: [facility]06-09-2024 22:58-0400Diastolic blood fyheyurg51 mm[Hg][place] [facility]06-09-2024 22:58-0400Heart rate61 /minSkvng [facility]06-09-2024 22:58-0400Respiratory rate14 /minSkvng [facility]06-09-2024 22:58-6822ZdX4% (BldA) [Mass fraction]96 %[place] [facility]06-09-2024 22:58-0400 Systolic blood epcjxrjo476 mm[Hg][place] [facility]06-09-2024 17:55-0400Body iebilvrlten34.7 [degF][place] [facility] 03-22-2024 17:54-0400Body keofad65.97 kgChina Adam [facility] 12-20-2023 13:09-0500Body xcfqme787.6 cmPatricia Conteh INSURANCE VERIFICATION REP.FICTION AND NONFICTION WRITER PROSE Work Phone: [facility]03-08-2024 13:09-0500Body temperature 97.2 [degF]Patricia Conteh INSURANCE VERIFICATION REP.FICTION AND NONFICTION WRITER PROSE Work Phone: [facility]03-08-2024 13:09-0500Body aohjxq26.1 kgPatricia Conteh INSURANCE VERIFICATION REP.FICTION AND NONFICTION WRITER PROSE Work Phone: [phone]03-08-2024 13:09-0500Diastolic blood bbqutnjh97 mm[Hg]Patricia Conteh INSURANCE VERIFICATION REP.FICTION AND NONFICTION WRITER PROSE Work Phone: 1([phone])406-[address] [place], [place] [address]503-08-2024 13:09-0500Heart rate66 /min Patricia Conteh INSURANCE VERIFICATION REP.FICTION AND NONFICTION WRITER PROSE Work Phone: [phone]03-08-2024 13:09-0500Respiratory rate 16 /minPatricia Conteh APRN.FICTION AND NONFICTION WRITER PROSE Work Phone: 1([phone])083-[address] [place], [place] [address]503-08-2024 13:09-8427MpG5% (BldA) [Mass fraction]97 %Patricia Conteh INSURANCE VERIFICATION REP.FICTION AND NONFICTION WRITER PROSE Work Phone: [facility]03-08-2024 13:09-0500Systolic blood mm[Hg]Patricia Conteh INSURANCE VERIFICATION REP.FICTION AND NONFICTION WRITER PROSE Work Phone: [phone]02-16-2024 12:51-0500Body gaxhre466.6 Vinod Vazquez MD Work Phone: [facility]02-16-2024 12:51-0500Body temperature 98.01 [degF]Graeme Vazquez MD Work Phone: [facility]02-16-2024 12:51-0500Body ndirkr61.9 kgGraeme Vazquez MD Work Phone: [facility]02-16-2024 12:51-0500Diastolic blood vsfsfnva35 mm[Hg]Gramee Vazquez MD Work Phone: [facility]02-16-2024 12:51-0500Heart rate71 /min Graeme Vazquez MD Work Phone: [facility]02-16-2024 12:51-0500Respiratory rate 16 /minGraeme Vazquez MD Work Phone: [facility]02-16-2024 12:51-5487UhA3% (BldA) [Mass fraction]98 %Graeme Vazquez MD Work Phone: [facility]02-16-2024 12:51-0500Systolic blood zjphiign365 mm[Hg]Graeme Vazquez MD Work Phone: [facility]12-07-2023 14:50-0500Diastolic blood lmnnpucu90 mm[Hg]Chair Winsome Work Phone: [facility]12-07-2023 14:50-0500Systolic blood aidepzey388 mm[Hg]Chair Winsome Work Phone: [facility]11-16-2023 12:37-0500Body rneciu288.6 cmVbritany Vazquez MD Work Phone: [facility]11-16-2023 12:37-0500Body temperature 97.5 [degF]Graeme Vazquez MD Work Phone: [facility]11-16-2023 12:37-0500Body ocqlbw40.75 kgGraeme Vazquez MD Work Phone: [place] [address]-16-2023 12:37-0500Diastolic blood fdonjuzr24 mm[Hg]Graeme Vazquez MD Work Phone: [facility]11-16-2023 12:37-0500Heart rate60 /min Graeme Vazquez MD Work Phone: [facility]11-16-2023 12:37-0500Respiratory rate 18 /minGraeme Vazquez MD Work Phone: [facility]11-16-2023 12:37-1583EyM2% (BldA) [Mass fraction]97 %Graeme Vazquez MD Work Phone: [facility]11-16-2023 12:37-0500Systolic blood ylaqyvhb790 mm[Hg]Graeme Vazquez MD Work Phone: [facility]10-05-2023 13:14-0400Body pfnyvs634.6 cmVbritany Vazquez MD Work Phone: [facility]10-05-2023 13:14-0400Body temperature 97.59 [degF]Graeme Vazquez MD Work Phone: [facility]10-05-2023 13:14-0400Body wmauix62.74 kgGraeme Vazquez MD Work Phone: [facility]10-05-2023 13:14-0400Diastolic blood rypjzebg62 mm[Hg]Graeme Vazquez MD Work Phone: [facility]10-05-2023 13:14-0400Heart rate61 /min Graeme Vazquez MD Work Phone: [facility]10-05-2023 13:14-0400Respiratory rate 18 /minGraeme Vazquez MD Work Phone: [facility]10-05-2023 13:14-6286VcO9% (BldA) [Mass fraction]96 %Graeme Vazquez MD Work Phone: [facility]10-05-2023 13:14-0400Systolic blood coqcxgql803 mm[Hg]Graeme Vazquez MD Work Phone: [facility]09-14-2023 13:02-0400Body qkrnok077.6 cmPatricia Conteh APRN.CNP Work Phone: [facility]09-14-2023 13:02-0400Body temperature 97 [degF]Patricia Conteh INSURANCE VERIFICATION REP.FICTION AND NONFICTION WRITER PROSE Work Phone: [facility]09-14-2023 13:02-0400Body mobcch46.19 kgPatricia Conteh INSURANCE VERIFICATION REP.FICTION AND NONFICTION WRITER PROSE Work Phone: [facility]09-14-2023 13:02-0400Diastolic blood lkrdyumg89 mm[Hg]Patricia Conteh INSURANCE VERIFICATION REP.FICTION AND NONFICTION WRITER PROSE Work Phone: [facility]09-14-2023 13:02-0400Heart rate61 /min Patricia Conteh INSURANCE VERIFICATION REP.FICTION AND NONFICTION WRITER PROSE Work Phone: [facility]09-14-2023 13:02-0400Respiratory rate 16 /minPatricia Conteh INSURANCE VERIFICATION REP.FICTION AND NONFICTION WRITER PROSE Work Phone: [facility]09-14-2023 13:02-6318JmT4% (BldA) [Mass fraction]99 %Patricia Conteh INSURANCE VERIFICATION REP.FICTION AND NONFICTION WRITER PROSE Work Phone: [facility]09-14-2023 13:02-0400Systolic blood hgtcwusd006 mm[Hg]Patricia Conteh INSURANCE VERIFICATION REP.FICTION AND NONFICTION WRITER PROSE Work Phone: [facility]08-24-2023 13:31-0400Body .6 cmVbritany Vazquez MD Work Phone: [facility]08-24-2023 13:31-0400Body temperature 97.81 [degF]Graeme Vazquez MD Work Phone: [facility]08-24-2023 13:31-0400Body zoizrl68.47 kgGraeme Vazquez MD Work Phone: [facility]08-24-2023 13:31-0400Diastolic blood ekljqamw54 mm[Hg]Graeme Vazquez MD Work Phone: [facility]08-24-2023 13:31-0400Heart rate60 /min Graeme Vazquez MD Work Phone: [facility]08-24-2023 13:31-0400Respiratory rate 16 /minGraeme Vazquez MD Work Phone: [facility]08-24-2023 13:31-8284PdT5% (BldA) [Mass fraction]99 %Graeme Vazquez MD Work Phone: [facility]08-24-2023 13:31-0400Systolic blood sisqnevf849 mm[Hg]Graeme Vazquez MD Work Phone: [facility]08-03-2023 13:02-0400Body ftnhtu197.6 cmVbritany Vazquez MD Work Phone: [facility]08-03-2023 13:02-0400Body temperature 97.81 [degF]Graeme Vazquez MD Work Phone: [facility]08-03-2023 13:02-0400Body wtkikr51.65 kgGraeme Vazquez MD Work Phone: [facility]08-03-2023 13:02-0400Diastolic blood gxxfrerp06 mm[Hg]Graeme Vazquez MD Work Phone: [facility]08-03-2023 13:02-0400Heart rate62 /min Graeme Vazquez MD Work Phone: [facility]08-03-2023 13:02-0400Respiratory rate 18 /minGraeme Vazquez MD Work Phone: [facility]08-03-2023 13:02-3696CaR9% (BldA) [Mass fraction]100 %Graeme Vazquez MD Work Phone: [facility]08-03-2023 13:02-0400Systolic blood ucjcpvvl359 mm[Hg]Graeme Vazquez MD Work Phone: [facility]07-13-2023 12:54-0400Body .6 cmPatricia Conteh APRN.FICTION AND NONFICTION WRITER PROSE Work Phone: [facility]07-13-2023 12:54-0400Body temperature 97.39 [degF]Patricia Conteh APRN.FICTION AND NONFICTION WRITER PROSE Work Phone: [facility]07-13-2023 12:54-0400Body .74 kgPatricia Conteh APRN.FICTION AND NONFICTION WRITER PROSE Work Phone: [facility]07-13-2023 12:54-0400Diastolic blood yudetttb45 mm[Hg]Patricia Conteh INSURANCE VERIFICATION REP.FICTION AND NONFICTION WRITER PROSE Work Phone: [facility]07-13-2023 12:54-0400Heart rate66 /min Patricia Conteh APRN.FICTION AND NONFICTION WRITER PROSE Work Phone: [facility]07-13-2023 12:54-0400Respiratory rate 16 /minPatricia Conthe APRN.FICTION AND NONFICTION WRITER PROSE Work Phone: [facility]07-13-2023 12:54-4271SpU5% (BldA) [Mass fraction]97 %Patricia Conteh APRN.FICTION AND NONFICTION WRITER PROSE Work Phone: [facility]07-13-2023 12:54-0400Systolic blood wetxbgbz846 mm[Hg]Patricia Conteh APRN.FICTION AND NONFICTION WRITER PROSE Work Phone: [facility]06-22-2023 10:25-0400Body claixp217.6 cmPatricia Conteh APRN.FICTION AND NONFICTION WRITER PROSE Work Phone: [facility]06-22-2023 10:25-0400Body temperature 97.7 [degF]Patricia Conteh APRN.FICTION AND NONFICTION WRITER PROSE Work Phone: [facility]06-22-2023 10:25-0400Body .29 kgPatricia Conteh APRN.FICTION AND NONFICTION WRITER PROSE Work Phone: [facility]06-22-2023 10:25-0400Diastolic blood dmzalynm68 mm[Hg]Patricia Conteh APRN.FICTION AND NONFICTION WRITER PROSE Work Phone: [facility]06-22-2023 10:25-0400Heart rate67 /min Patricia Conteh APRN.FICTION AND NONFICTION WRITER PROSE Work Phone: [facility]06-22-2023 10:25-0400Respiratory rate 16 /minPatricia Conteh APRN.FICTION AND NONFICTION WRITER PROSE Work Phone: [facility]06-22-2023 10:25-5029EtV3% (BldA) [Mass fraction]97 %Patricia Conteh INSURANCE VERIFICATION REP.FICTION AND NONFICTION WRITER PROSE Work Phone: [facility]06-22-2023 10:25-0400Systolic blood xoffvvfy463 mm[Hg]Patricia Conteh INSURANCE VERIFICATION REP.FICTION AND NONFICTION WRITER PROSE Work Phone: [facility]05-30-2023 10:00-0400Body wutcoq43.56 kgCamtwyla Nelson Other [employer] Other 05-30-2023 10:00-0400Diastolic blood ludsdheg21 mm[Hg] Shawn Nelson Other [employer] Other 05-30-2023 10:00-0400Systolic blood jhbszxky741 mm[Hg] Shawn Nelson Other [place] [employer] Other 04-20-2023 08:17-0400Body .6 Vinod Vazquez MD Work Phone: [facility]04-20-2023 08:17-0400Body temperature 97.5 [degF]Graeme Vazquez MD Work Phone: [facility]04-20-2023 08:17-0400Body vaobof52.19 kgGraeme Vazquez MD Work Phone: [facility]04-20-2023 08:17-0400Diastolic blood mm[Hg]Graeme Vazquez MD Work Phone: [facility]04-20-2023 08:17-0400Heart rate59 /min Graeme Vazquez MD Work Phone: [facility]04-20-2023 08:17-0400Respiratory rate 16 /minGraeme Vazquez MD Work Phone: [facility]04-20-2023 08:17-0628OjB1% (BldA) [Mass fraction]97 %Graeme Vazquez MD Work Phone: [facility]04-20-2023 08:17-0400Systolic blood bubqjkbc920 mm[Hg]Graeme Vazquez MD Work Phone: [facility]03-22-2023 14:58-0400Body .6 cmVbritany Vazquez MD Work Phone: [facility]03-22-2023 14:58-0400Body temperature 97.3 [degF]Graeme Vazquez MD Work Phone: [facility]03-22-2023 14:58-0400Body .2 kgGraeme Vazquez MD Work Phone: [facility]03-22-2023 14:58-0400Diastolic blood gabqqdpj63 mm[Hg]Graeme Vazquez MD Work Phone: [facility]03-22-2023 14:58-0400Heart rate63 /min Graeme Vazquez MD Work Phone: [facility]03-22-2023 14:58-0400Respiratory rate 16 /minGraeme Vazquez MD Work Phone: [facility]03-22-2023 14:58-0214ItN4% (BldA) [Mass fraction]97 %Graeme Vazquez MD Work Phone: [facility]03-22-2023 14:58-0400Systolic blood mm[Hg]Graeme Vazquez MD Work Phone: [place] [address]-22-2023 09:20-0500Blood Pressure LocationPaeliza RODRIGUEZ [facility]02-22-2023 09:20-0500Diastolic blood mm[Hg]Jian RODRIGUEZ [facility]02-22-2023 09:20-0500Heart rate59 /minPaeliza RODRIGUEZ [facility]02-22-2023 09:20-0500Systolic blood ekkrbdya168 mm[Hg]Jian RODRIGUEZ [facility] [place] [address]-13-2023 08:40-0500Body eqrufx005.6 Vinod Vazquez MD Work Phone: [place] [address]-13-2023 08:40-0500Body temperature 97.7 [degF]Graeme Vazquez MD Work Phone: [place] [address]-13-2023 08:40-0500Body .47 kgGraeme Vazquez MD Work Phone: [place] [address]-13-2023 08:40-0500Diastolic blood uulljqzq03 mm[Hg]Graeme Vazquez MD Work Phone: [place] [address]-13-2023 08:40-0500Heart rate60 /min Graeme Vazquez MD Work Phone: [place] [address]-13-2023 08:40-0500Respiratory rate 16 /minGraeme Vazquez MD Work Phone: [place] [address]-13-2023 08:40-7961WlR9% (BldA) [Mass fraction]97 %Graeme Vazquez MD Work Phone: [place] [address]-13-2023 08:40-0500Systolic blood whpxcuxl214 mm[Hg]Graeme Vazquez MD Work Phone: [facility]11-30-2022 14:05-0500Body .6 Jen Saenz MD Work Phone: [facility] CenterNcpnry02-60-9401 14:05-0500Body tsweod61.93 kgNicholas Saenz MD Work Phone: [phone] Medical CenterRbamcy64-49-2380 14:05-0500Diastolic blood fgizuyzk40 mm[Hg]Nicholas Saenz MD Work Phone: [phone] Medical CenterIvlkoc77-99-0019 14:05-0500Heart rate79 /min Nicholas Saenz MD Work Phone: c[facility] CenterTdeeti24-51-6792 14:05-0500Systolic blood dhrneooo877 mm[Hg]Nicholas Saenz MD Work Phone: [place] [address]-30-2022 10:56-0500Diastolic blood iyypxzrf61 mm[Hg]Pacc 4 Work Phone: [phone]11-30-2022 10:56-0500Systolic blood euautfiw307 mm[Hg]Pacc 4 Work Phone: [facility]11-30-2022 10:55-0500Body znvcuu899.6 cmPacc 4 Work Phone: [phone]11-30-2022 10:55-0500Body temperature 98.29 [degF]Pacc 4 Work Phone: [phone] [address]-30-2022 10:55-0500Body lpgqpu93.93 kgPacc 4 Work Phone: [phone]11-30-2022 10:55-0500Heart rate66 /min Pacc 4 Work Phone: [phone]11-30-2022 10:55-7613NcV9% (BldA) [Mass fraction]96 %Pacc 4 Work Phone: [phone]05-26-2022 11:15-0400Body zyrqlz11.65 kgDavid Komal Other [place] [employer] Other [phone] 12:37-0400Body edwdzl347.6 cmScristofer Perea MD Work Phone: [facility]05-23-2022 12:37-0400Body temperature 97.81 [degF]Soren Perea MD Work Phone: [facility]05-23-2022 12:37-0400Body rfxazf21.01 kgSiwally Perea MD Work Phone: [facility]05-23-2022 12:37-0400Diastolic blood bpvxkpas16 mm[Hg]Soren Perea MD Work Phone: [facility]05-23-2022 12:37-0400Heart rate56 /min Soren Perea MD Work Phone: [facility]05-23-2022 12:37-0400Respiratory rate 16 /minScristofer Perea MD Work Phone: [facility]05-23-2022 12:37-0402IkG2% (BldA) [Mass fraction]97 %Soren Perea MD Work Phone: [facility]05-23-2022 12:37-0400Systolic blood wksexbtv178 mm[Hg]Soren Perea MD Work Phone: [facility]05-09-2022 12:37-0400Body .6 cmCorazon Maxwell PA-C Work Phone: [facility]05-09-2022 12:37-0400Body temperature 97.59 [degF]Corazon Maxwell PA-C Work Phone: [facility]05-09-2022 12:37-0400Body rravtq59.19 kgMintamara Maxwell PA-C Work Phone: [place] [address]-09-2022 12:37-0400Diastolic blood mm[Hg]Corazon Beller PA-C Work Phone: [facility]05-09-2022 12:37-0400Heart rate67 /min Corazon Beller PA-C Work Phone: [facility]05-09-2022 12:37-0400Respiratory rate 18 /minMintamara Alissa PA-C Work Phone: [facility]05-09-2022 12:37-1599GgK5% (BldA) [Mass fraction]100 %Corazon Beller PA-C Work Phone: [facility]05-09-2022 12:37-0400Systolic blood uduityxj044 mm[Hg]Corazon Beller PA-C Work Phone: [facility]05-02-2022 12:56-0400Body rnhbya389.6 cmScristofer Perea MD Work Phone: [facility]05-02-2022 12:56-0400Body temperature 97.39 [degF]Soren Perea MD Work Phone: [facility]05-02-2022 12:56-0400Body hpayst21.46 kgSiwally Perea MD Work Phone: [facility]05-02-2022 12:56-0400Diastolic blood dxxoitog85 mm[Hg]Soren Perea MD Work Phone: [facility]05-02-2022 12:56-0400Heart rate52 /min Soren Perea MD Work Phone: [facility]05-02-2022 12:56-0400Respiratory rate 18 /minScristofer Perea MD Work Phone: [facility]05-02-2022 12:56-3791JgX1% (BldA) [Mass fraction]99 %Soren Perea MD Work Phone: [place] [address]-02-2022 12:56-0400Systolic blood eincaqux576 mm[Hg]Soren Perea MD Work Phone: [facility]04-25-2022 12:40-0400Body ldeezl798.6 cmScristofer Perea MD Work Phone: [facility]04-25-2022 12:40-0400Body temperature 97.59 [degF]Soren Perea MD Work Phone: [facility]04-25-2022 12:40-0400Body moqgtv31.91 kgSiwally Perea MD Work Phone: [facility]04-25-2022 12:40-0400Diastolic blood hihxzjqj76 mm[Hg]Soren Perea MD Work Phone: [facility]04-25-2022 12:40-0400Heart rate57 /min Soren Perea MD Work Phone: [facility]04-25-2022 12:40-0400Respiratory rate 18 /minScristofer Perea MD Work Phone: [facility]04-25-2022 12:40-0230QrW4% (BldA) [Mass fraction]100 %Soren Perea MD Work Phone: [facility]04-25-2022 12:40-0400Systolic blood qxytjsxp226 mm[Hg]Soren Perea MD Work Phone: [facility]04-04-2022 12:35-0400Body ifgjwj512.6 cmMintamara Maxwell PA-C Work Phone: [facility]04-04-2022 12:35-0400Body temperature 98.1 [degF]Corazon Maxwell PA-C Work Phone: [facility]04-04-2022 12:35-0400Body uujmby43.28 kgMintamara Maxwell PA-C Work Phone: [place] [address]-04-2022 12:35-0400Diastolic blood mm[Hg]Corazon Beller PA-C Work Phone: [facility]04-04-2022 12:35-0400Heart rate63 /min Corazon Beller PA-C Work Phone: [facility]04-04-2022 12:35-0400Respiratory rate 16 /minMintamara Alissa PA-C Work Phone: [facility]04-04-2022 12:35-3496NgC2% (BldA) [Mass fraction]98 %Corazon Beller PA-C Work Phone: [facility]04-04-2022 12:35-0400Systolic blood uucpsoca869 mm[Hg]Corazon Bleler PA-C Work Phone: [facility]03-28-2022 09:09-0400Body dygqpg055.6 cmScristofer Perea MD Work Phone: [facility]03-28-2022 09:09-0400Body temperature 97.11 [degF]Soren Perea MD Work Phone: [facility]03-28-2022 09:09-0400Body uqkeii71.55 kgSiwally Perea MD Work Phone: [facility]03-28-2022 09:09-0400Diastolic blood gkxewcxn70 mm[Hg]Soren Perea MD Work Phone: [facility]03-28-2022 09:09-0400Heart rate62 /min Soren Perea MD Work Phone: [place] [address]-28-2022 09:09-0400Respiratory rate 18 /minScristofer Perea MD Work Phone: [facility]03-28-2022 09:09-0536EnS8% (BldA) [Mass fraction]98 %Soren Perea MD Work Phone: [place] [address]-28-2022 09:09-0400Systolic blood ldfuhcac878 mm[Hg]Soren Perea MD Work Phone: [facility] Encounters Encounter DateEncounter TypeCare ProviderFacilityStart: 07-19-2025 End: 88-28-0104evmqiaearxWOUJJL [facility] Start: 06-30-2025 End: 85-80-5837fgniugghebICXT [facility]: 05-17[facility]2025 End: 92-76-8231Fbtryn outpatient visit 15 minutesHarpreet Avalos INSURANCE VERIFICATION REP-FICTION AND NONFICTION WRITER PROSE Work Phone: [facility] Wound Care ClinicComment on above:Chest wall ulcer, 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-HCC) (Primary Dx); Infection of pacemaker pocket, initial encounter; Open wound of left chest wall, initial encounterStart: 05-17-2025 End: 47-23-7374aublsjclemDSNZVWGSA L BALLMetroHealth [facility] Campus [facility] Start: 05-14-2025 End: 02-18-6630lbqwdygktlDVLDQMarietta Osteopathic Clinictart: 05-08-2025 End: 48-66-1644Equaqa follow up visit related to original Yesenia Hernandez APRN-FICTION AND NONFICTION WRITER PROSE Work Phone: [facility] CardiologyComment on above:Open wound of left chest wall, initial encounter (Primary Dx); Pacemaker complications, initial encounterStart: 35-87-3590bnbushljhsJCHPHQIKarely HERNANDEZOhioHealth Berger Hospitaltart: 05-05-2025 End: 35-04-0564Ivnyg abstractingScanning Provider ExternalProMedica Physicians CardiologyStart: 05-05-2025 End: 93-18-3764Motpywfdi encounterMegan Gigi RNProMedica Physicians Cardiology Comment on above:Extraction siteReminderStart: 05-04-2025 End: 58-03-6247Jfkgefzlmbgfo procedureHarpreet Avalos INSURANCE VERIFICATION REP-FICTION AND NONFICTION WRITER PROSE Work Phone: [facility] - Wound Care OutpatientStart: 05-03-2025 End: 47-57-2086Kvgish outpatient new 30 minutesSallyjohnny Russo Jaxon INSURANCE VERIFICATION REP-FICTION AND NONFICTION WRITER PROSE Work Phone: [facility] - Wound Care ClinicComment on above:Open wound of left chest wall, initial encounter (Primary Dx); 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; Infection of pacemaker pocket, initial encounterStart: 05-03-2025 End: 39-15-9364fsxekbrvevRKOUCOFPF L BALLMetroHealth [facility] Campus [facility] Start: 04-22-2025 End: 38-23-8909Agsezbpqp encounterGraeme Vazquez MD Work Phone: Hematology/OncologyComment on above:Patient Update Start: 04-19-2025 End: 25-12-4973Ekxfwrgphc and management of inpatientDOLakeHealth TriPoint Medical Centertart: 04-19-2025 End: 23-33-0262Hfvldsdbq department patient visitSUniversity Hospitals Health Systemtart: 42-06-0222umfaapjkswJIGKG [facility] AmbulatoryStart: 03-16-2025 End: 28-73-3014hruhdmraskJHWZPremier Health Miami [facility] Hospital Northtart: 02-23-2025 End: 11-96-4005pieqsfrgllACJGPremier Health Miami Valley Hospital Northtart: 02-17-2025 End: 70-58-7133pkcgojidhfZFPJBRY [facility] Centertart: 71-83-4614cufyueflxkQSDHBarberton Citizens Hospitaltart: 02-02-2025 End: 85-53-4135wpiuliiojdUYGOBarberton Citizens Hospitaltart: 01-21-2025 End: 79-24-0941rcwjbecycaPNQZPremier Health [facility] Hospital Northtart: 01-20-2025 End: 75-25-9338wqnogmhetmOMNCThe University of Toledo Medical Centertart: 01-20-2025 End: 79-28-3645Soioycqdy for other preprocedural examinationPAUL [facility] HospitalStart: 01-20-2025 End: 31-77-1390Fsbsblyyry hospital visit by Radu Stubbs CNP Work Phone: [facility] LABStart: 01-20-2025 End: 72-39-1626alusturlpkCYVHPremier Health Miami Valley Hospital Northtart: 01-19-2025 End: 65-95-5775wmzasfczlvKYMIPremier Health Miami [facility] Hospital Northtart: 01-08-2025 End: 05-21-4040bxefofyfryAMHLRC SONIAMercy Health [facility] Start: 01-04-2025 End: 53-16-1075xvedzbtzsyOMKSQCP L ANJELERMaultman alliance community hospitaleli [facility] HospitalStart: 01-04-2025 End: 10-03-1204Fbiddeftcr hospital visit by Radu Stubbs CNP Work Phone: [facility] LABComment on above:AbscessStart: 10-23-2024 End: 38-04-2299Lbsiyx outpatient visit 25 minutesGraeme Vazquez MD Work Phone: Hematology/OncologyComment on above:Malignant neoplasm of overlapping sites of bladder (HCC) (Primary Dx); Malignant neoplasm of urinary bladder, unspecified site (HCC); CKD (chronic kidney disease), stage V (HCC); Disorder of thyroid; Malignant neoplasm of ureteric orifice (HCC)Start: 10-23-2024 End: 83-35-8465vzxanzqizrVDHQF ABHYANKARFacility:[facility] Hospitaltart: 10-21-2024 End: 51-84-5490hsfwnpnyhqROPEN W MIGHTOhio State Health System HospitalStart: 10-21-2024 End: 58-42-0681Dfgaorpuei hospital visit by Radu Stubbs CNP Work Phone: mthz LaboratoryComment on above:Congenital hypothyroidism; DyslipidemiaStart: 10-16-2024 End: 71-79-9156nbohbldtahKTQFH W MIGHTFacility:[facility] HospitalStart: 10-16-2024 End: 49-25-5600Kpiuawvnbk hospital visit by physicianArrival Time Radiology Work Phone: Radiology Pet CTComment on above:Malignant neoplasm of overlapping sites of bladder (HCC) [C67.8]Start: 09-29-2024 End: 58-57-8158gtwkjzrmshXWVMSalem Regional Medical Centertart: 09-16-2024 End: 51-60-8713hhocfsbpobKNCTRXMThe Christ Hospitaltart: 09-10-2024 End: 09-49-6655Dctxqafiv department patient visitLeni Santiago MD Work Phone: [facility] EDComment on above:Chest discomfort (Primary Dx)Start: 08-25-2024 End: 64-82-8228xcidqqkduyHVBRSalem Regional Medical Centertart: 08-21-2024 End: 40-76-7853Lsjfgj outpatient visit 25 minutesGraeme Vazquez MD Work Phone: Hematology/OncologyComment on above:Malignant neoplasm of overlapping sites of bladder (HCC) (Primary Dx); CKD (chronic kidney disease), stage V (HCC); Malignant neoplasm of urinary bladder, unspecified site (HCC)Start: 08-21-2024 End: 95-90-1420xewhybwgsfSZRUX ABHYANKARFacility:[facility] Hospitaltart: 06-29-2024 End: 19-17-8380gxgajbhdopNKHFB ABHYANKARFacility:[facility] Hospitaltart: 06-29-2024 End: 57-31-1513Eqflecboap hospital visit by physicianArrival Time Radiology Work Phone: Radiology Pet CTComment on above:Malignant neoplasm of overlapping sites of bladder (HCC) [C67.8]Start: 05-18-2024 End: 11-22-5974Yxjclr outpatient visit 40 minutesGraeme Vazquez MD Work Phone: Hematology/OncologyComment on above:Malignant neoplasm of overlapping sites of bladder (HCC) (Primary Dx); CKD (chronic kidney disease), stage V (HCC); Malignant neoplasm of urinary bladder, unspecified site (HCC); Disorder of thyroid; Abnormal blood chemistryStart: 05-18-2024 End: 86-40-5182pajzqjkfsfKOVYWRJ M HOYFacility:[facility] Hospitaltart: 23-34-1353Oltoayxdr encounterTifhailee Mckeon RN Work Phone: Hematology/OncologyComment on above:Care Coordination (Diarrhea >1 month)Start: 03-22-2024 End: 15-62-7162Knivlvehf department patient visitSean [facility] EDComment on above:Elevated troponin (Primary Dx)Start: 03-20-2024 Telephone encounterGraeme Vazquez MD Work Phone: Cancer Appts MCComment on above:Appointment Cancelled (Diarrhea/)Start: 66-67-0767C-mail encounter from Atilio Emmanuel APRN.CNP Work Phone: [facility]Start: 61-72-0060Ijtxurk encounter Serina Emmanuel APRN.CNP Work Phone: [facility] CLINICComment on above:Actionable FindingStart: 50-95-6545Tscqcainl encounterGraeme Vazquez MD Work Phone: Cancer Appts MCComment on above:No ShowStart: 01-24-2024 End: 96-50-7167Nxazeaphhm hospital visit by physicianArrival Time Radiology Work Phone: Radiology Pet CTComment on above:Malignant neoplasm of urinary bladder, unspecified site (HCC) [C67.9]Start: 12-20-2023 End: 44-36-0416kicnwjdefdAsqoyRao Conteh APRN.CNP Work Phone: Hematology/OncologyComment on above:Malignant neoplasm of overlapping sites of bladder (HCC) (Primary Dx); CKD (chronic kidney disease), stage V (HCC); Abnormal weight loss; Malignant neoplasm of urinary bladder, unspecified site (HCC)Start: 12-20-2023 End: 16-88-1090Jikkazk encounter French Conteh APRN.CNP Work Phone: SANDUSKYStart: 11-29-2023 End: 56-40-4705ilrfaeksowYzuwd [address] [place] Work Phone: Hematology/OncologyComment on above:Malignant neoplasm of overlapping sites of bladder (HCC) (Primary Dx); Malignant neoplasm of right kidney, except renal pelvis (HCC); Malignant neoplasm of ureter, unspecified laterality (HCC)Start: 11-29-2023 End: 96-60-2552Rekisc outpatient visit 40 minutesGraeme Vazquez MD Work Phone: Hematology/OncologyComment on above:Malignant neoplasm of overlapping sites of bladder (HCC) (Primary Dx); CKD (chronic kidney disease), stage V (HCC); Disorder of thyroid; Malaise and fatigueStart: 56-63-5634Uodindmwh encounterMargot So RN Work Phone: Hematology/OncologyComment on above:Care Coordination (Follow Up Appointment)Start: 51-06-8541Ewkrizdpy encounterGraeme Vazquez MD Work Phone: Cancer Appts MCStart: 09-19-2023 End: 02-09-6524whnfmivbpiAcuct [address] [place] Work Phone: Hematology/OncologyComment on above:Malignant neoplasm of overlapping sites of bladder (HCC) (Primary Dx); Malignant neoplasm of right kidney, except renal pelvis (HCC); Malignant neoplasm of ureter, unspecified laterality (HCC)Start: 08-29-2023 End: 32-06-0742Jpeegw outpatient visit 25 minutesGraeme Vazquez MD Work Phone: Hematology/OncologyComment on above:Malignant neoplasm of overlapping sites of bladder (HCC) (Primary Dx); Malignant neoplasm of ureter, unspecified laterality (HCC); Malaise and fatigueStart: 08-23-2023 End: 01-25-1774Ziguojyedq hospital visit by physicianArrival Time Radiology Work Phone: Radiology Pet CTComment on above:Malignant neoplasm of overlapping sites of bladder (HCC) [C67.8]Start: 17-19-3814Orxcbtkmf encounter Margot So RN Work Phone: Hematology/OncologyComment on above:Care Coordination (Sore Throat)Start: 07-18-2023 End: 15-47-8720fivquuudaqOwczx 13 [address] Work Phone: Hematology/OncologyComment on above:Malignant neoplasm of overlapping sites of bladder (HCC) (Primary Dx); Malignant neoplasm of right kidney, except renal pelvis (HCC); Malignant neoplasm of ureter, unspecified laterality (HCC)Start: 07-18-2023 End: 17-09-7564Alokqw outpatient visit 25 minutesGraeme Vazquez MD Work Phone: Hematology/OncologyComment on above:Malignant neoplasm of overlapping sites of bladder (HCC) (Primary Dx)Start: 06-27-2023 End: 28-55-0068tnrsdvxormCgpks 13 [address] Work Phone: Hematology/OncologyComment on above:Malignant neoplasm of overlapping sites of bladder (HCC) (Primary Dx); Malignant neoplasm of right kidney, except renal pelvis (HCC); Malignant neoplasm of ureter, unspecified laterality (HCC)Malignant neoplasm of overlapping sites of bladder (HCC) (Primary Dx); Malaise and fatigueStart: 06-27-2023 End: 23-04-5010Ipnjbmc encounter French Conteh APRN.CNP Work Phone: SANDUSKYStart: 06-18-2023 End: 49-09-9367lictbfwgbsKfhjel J Stein MD Work Phone: UrologyComment on above:Urothelial cancer (HCC) (Primary Dx)Start: 06-18-2023 End: 93-26-4921Mijabjatxqfw consultation with patientGalen Bhatt MD Work Phone: [facility] MAINStart: 06-06-2023 End: 04-82-3567psqwxexgaiXafdz 15 [address] Work Phone: Hematology/OncologyComment on above:Malignant neoplasm of overlapping sites of bladder (HCC) (Primary Dx); Malignant neoplasm of right kidney, except renal pelvis (HCC); Malignant neoplasm of ureter, unspecified laterality (HCC)Start: 06-06-2023 End: 33-70-2869Loqosc outpatient visit 25 minutesGraeme Vazquez MD Work Phone: Hematology/OncologyComment on above:Malignant neoplasm of overlapping sites of bladder (HCC) (Primary Dx); Malignant neoplasm of ureter, unspecified laterality (HCC); Disorder of thyroidStart: 05-31-2023 End: 22-90-5325RybzfeHjjaku J Stein MD Work Phone: UrologyComment on above:Refill RequestMalignant neoplasm of overlapping sites of bladder (HCC) [C67.8]Start: 05-16-2023 End: 43-51-0546vdgybyihgeEhzuh Anthony Fam Work Phone: Hematology/OncologyComment on above:Malignant 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) (Primary Dx); Malignant neoplasm of right kidney, except renal pelvis (HCC); Malignant neoplasm of ureter, unspecified laterality (HCC)Start: 05-16-2023 End: 24-14-3884Cshazo outpatient visit 25 minutesGraeme Vazquez MD Work Phone: Hematology/OncologyComment on above:Malignant neoplasm of overlapping sites of bladder (HCC) (Primary Dx)Start: 05-07-2023 End: 47-54-2709gcjicycvgzFmnnzn J Stein MD Work Phone: UrologyComment on above:Malignant neoplasm of urothelium (HCC) (Primary Dx)Start: 05-07-2023 End: 70-27-4183Admzzgjdbnbk consultation with Harrison Bhatt MD Work Phone: [facility] MAINStart: 04-25-2023 End: 73-44-5504Ihbyda Eun Sneed MD Work Phone: Hematology/OncologyComment on above:Dry mouth (Primary Dx); Other general symptoms and signsMalignant neoplasm of overlapping sites of bladder (HCC) (Primary Dx)Malignant neoplasm of overlapping sites of bladder (HCC) (Primary Dx); Malignant neoplasm of right kidney, except renal pelvis (HCC); Malignant neoplasm of ureter, unspecified laterality (HCC)Start: 04-04-2023 End: 33-18-9772ntxrfgvsqdUhcit Martinez APRN.CNP Work Phone: Hematology/OncologyComment on above:Malignant neoplasm of overlapping sites of bladder (HCC) (Primary Dx)Malignant neoplasm of overlapping sites of bladder (HCC) (Primary Dx); Malignant neoplasm of right kidney, except renal pelvis (HCC); Malignant neoplasm of ureter, unspecified laterality (HCC)Start: 04-04-2023 End: 48-62-2272Igcaxne encounter procedurePatricia Conteh APRN.CNP Work Phone: SANDUSKYStart: 03-12-2023 End: 69-58-2350jhpsxblsddCdzecny Ditty Other [place] [employer] Other Start: 27-96-8478Bdwqwtq encounter procedureShawn NietoG GastroenterologyStart: 03-10-2023 End: 40-52-2490fclrfzvwocPU DI OCHOA .Facility:U9Ooevg: 77-61-4465Goaemlwct encounterGraeme Vazquez MD Work Phone: Cancer Appts MCComment on above:Return Call Request; Call ptStart: 01-31-2023 End: 26-86-8724dydhueypfuHqmmm [address] [place] Work Phone: Hematology/OncologyComment on above:Malignant neoplasm of overlapping sites of bladder (HCC) (Primary Dx); Malignant neoplasm of right kidney, except renal pelvis (HCC); Malignant neoplasm of ureter, unspecified laterality (HCC)Start: 01-31-2023 End: 03-05-2124Ggyckf outpatient visit 25 minutesGraeme Vazquez MD Work Phone: Hematology/OncologyComment on above:Malignant neoplasm of overlapping sites of bladder (HCC) (Primary Dx)Start: 01-23-2023 End: 55-82-5029Tvwtqbdtid hospital visit by physicianArrival Time Radiology Work Phone: Radiology Pet CTComment on above:Malignant neoplasm of overlapping sites of bladder (HCC) [C67.8]Start: 01-11-2023 End: 60-52-7545shrycumvkhGX SERGIO SNEED .Facility:N0Mvqkr: 63-43-2445Kltlazrms encounterMargot So RN Work Phone: Hematology/OncologyComment on above:Care Coordination (C1D1 Post Treatment Call)Start: 01-02-2023 End: 22-17-4613bazwlskmrtBhwbc [address] [place] Work Phone: Hematology/OncologyComment on above:Malignant neoplasm of overlapping sites of bladder (HCC) (Primary Dx); Malignant neoplasm of right kidney, except renal pelvis (HCC); Malignant neoplasm of ureter, unspecified laterality (HCC)Start: 01-02-2023 End: 16-47-6907Obwfob outpatient visit 25 minutesGraeme Vazquez MD Work Phone: Hematology/OncologyComment on above:Malignant neoplasm of overlapping sites of bladder (HCC) (Primary Dx); Malignant neoplasm of ureter, unspecified laterality (HCC)Start: 12-31-2022 ambulatoryMargot So RN Work Phone: Hematology/OncologyComment on above:Non-Chemotherapy Treatment (Pembrolizumab)Start: 24-36-6004Mhmoafpow Jesi Alarcon MD Work Phone: [facility] - ClarksvilleComment on above:Patient UpdateStart: 12-18-2022 End: 94-05-3029xpthgnoseeGhksrgz R WATERSFacility:EU [place]uskyStart: 12-17-2022 Telephone encounterLauren Mckeon RN Work Phone: Hematology/OncologyComment on above:Care Coordination (Reschedule appointment)Start: 12-08-2022 End: 67-20-4542onvdspstkcTR SERGIO SNEED .Facility:E5Ztmwz: 12-05-2022 End: 01-26-9454hrywqtftsnMeueexb R WATERSFacility:EU [place]kyStart: 12-05-2022 End: 26-33-2140Uctjfwu encounter procedureJian RODRIGUEZ [facility] [place] Start: 11-26-2022 End: 14-82-7241pnsbykvxpwEooas Abhyankar MD Work Phone: Hematology/OncologyComment on above:Malignant neoplasm of ureter, unspecified laterality (HCC) (Primary Dx)Start: 11-26-2022 End: 78-59-4579Thzhapj encounter Félix Vazquez MD Work Phone: [place]AND[place]Start: 11-20-2022 End: 12-37-0322ysfaczhcreBkojae J Stein MD Work Phone: UrologyComment on above: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, unspecified laterality (HCC) (Primary Dx)Start: 11-20-2022 End: 79-04-3772Vvqrpyrssrhp consultation with Harrison Bhatt MD Work Phone: [facility]Start: 11-09-2022 End: 23-24-3759iycjypmpfrEV DOUGLAS HOY .Facility:U7Izhvv: 10-10-2022 End: 37-05-4974uxaygsprrnNtkyxgn Ditty Other [place] [employer] Other Start: 74-63-1331Ebgwuctqg encounterCamerodonn ChuayFPG GastroenterologyStart: 09-26-2022 End: 82-99-2875lkwhkoeuyaRV SERGIO SNEED .Facility:F4Cuwup: 09-12-2022 End: 00-65-6635Tpmcnjf encounter Ang Saenz MD Work Phone: UrologyComment on above:Urothelial carcinoma (HCC) (Primary Dx)Start: 09-12-2022 End: 05-25-2148jnwbxexwhgFgzg Main 4 Work Phone: Pre AnesthesiaComment on above:Pre-op evaluation (Primary Dx); Hypertensive heart disease with heart failure (HCC); Gastro-esophageal reflux disease without esophagitis; Ulcerative pancolitis (HCC); Stage 3 chronic kidney disease, unspecified whether stage 3a or 3b CKD (HCC); 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, unspecified laterality (HCC)Start: 09-12-2022 End: 95-53-6990Uhssquuxv to [place] [address] Work Phone: [facility]Start: 09-12-2022 End: 22-23-1734Jiavifngknnsm examination [place] [address] Work Phone: [facility] AnesthesiaStart: 07-30-2022 End: 28-54-3700dqhojaqpfrIrzqrqj Dijuancarlos Other [place] [employer] Other Start: 07-31-2953Qrhxrxjms encounterCamtwyla NelsonFPG GastroenterologyStart: 22-43-4598ggparaisinCkbeir L Smith RNGlickman Urological &Start: 03-26-2022 End: 94-29-5503sxjqwesjqrOzdys O'Donohue PA-C Work Phone: UrologyComment on above:Urothelial carcinoma (HCC) (Primary Dx)Start: 03-26-2022 End: 70-07-0271Vsahvdetftzi consultation with Lottie Tejada PA-C Work Phone: [facility]Start: 46-87-4911mqheffhnru Claire Salazar Urological &Start: 03-13-2022 End: 58-39-4807kesunbzoqvHgrmsr J Stein MD Work Phone: UrologyComment on above: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, unspecified laterality (HCC) (Primary Dx); Acute cystitis without hematuriaStart: 03-13-2022 End: 37-00-5941Rwyycfyjztnb consultation with Harrison Bhatt MD Work Phone: [facility]Start: 03-08-2022 End: 01-88-5877ljbjdqqhefUjnuz Komal Other [place] [employer] Other Start: 13-49-9381Freqww outpatient visit 25 minutes Augusto SanchezG GastroenterologyStart: 03-05-2022 End: 16-85-7511exkoatfuvsAaefgipyb Kunte MD Work Phone: Hematology/OncologyComment on above:Malignant neoplasm of ureter, unspecified laterality (HCC) (Primary Dx)Start: 03-05-2022 End: 72-53-2018Bkioafu encounter procedureScristofer Perea MD Work Phone: [place]Start: 02-19-2022 End: 20-28-9658kwvgjvkxweBfhsgYoni Maxwell PA-C Work Phone: Hematology/OncologyComment on above:Malignant neoplasm of ureter, unspecified laterality (HCC) (Primary Dx)Start: 02-19-2022 End: 34-77-5755Uypzjmk encounter procedureCorazon Maxwell PA-C Work Phone: SANDUSKYStart: 02-12-2022 End: 28-56-7402ddhtcopqxkHygdtnvct Kunte MD Work Phone: Hematology/OncologyComment on above:Malignant neoplasm of ureter, unspecified laterality (HCC) (Primary Dx)Start: 02-12-2022 End: 75-71-1700Jsqhblt encounter procedureScristofer Perea MD Work Phone: SANDUSKYStart: 02-05-2022 End: 17-41-4474lljlnsrhpwVougtdosc Kunte MD Work Phone: Hematology/OncologyComment on above:Malignant neoplasm of ureter, unspecified laterality (HCC) (Primary Dx)Start: 02-05-2022 End: 40-66-5015Ctrlunc encounter procedureScristofer Perea MD Work Phone: SANDUSKYStart: 01-22-2022 End: 90-18-3911ijrloxlvtsHfgpm Alek Fam Work Phone: Hematology/OncologyComment on above:Malignant neoplasm of ureter, unspecified laterality (HCC) (Primary Dx)Start: 01-15-2022 End: 81-22-1687onsxxswatyFdmrs M Musser PA-C Work Phone: Hematology/OncologyComment on above:Malignant neoplasm of ureter, unspecified laterality (HCC) (Primary Dx)Start: 01-15-2022 End: 61-82-2283Wbjvjvs encounter procedureCorazon Maxwell PA-C Work Phone: SAND[place]KYStart: 01-08-2022 End: 77-91-1917pbxxigiaofUelzflrin Kunte MD Work Phone: Hematology/OncologyComment on above:Malignant neoplasm of ureter, unspecified laterality (HCC) (Primary Dx)Start: 01-08-2022 End: 74-62-8693Tptbcxv encounter procedureScristofer Perea MD Work Phone: SANDUSKYStart: 07-08-2020 End: 00-70-6947Vtwrfccnew hospital visit by physicianFormerly [facility] Work Phone: RadiologyComment on above: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 Procedures DateProcedureProcedure DetailPerforming ClinicianStart: 72-42-4900JBEOYTP Nikhil Avalos APRN-ABIOLA Work Phone: Start: 09-73-3748Jluvte-up visitFollow-upADELINA FREEMANWELLStart: 35-12-6583Suuzob-up visitFollow-Lisa WUOPHERStart: 00-92-0774Uxelsifb screenDOUGLAS HOYComment on above:Performed By: #### WCSUP #### [facility] ([facility]) [address] [place] [address] VIRStart: 75-10-9797Uazog metabolic panel calcium totalPaul Lily FOUNTAIN Work Phone: Start: 34-17-7930Kjzhf panelBrett W Might INSURANCE VERIFICATION REP - FICTION AND NONFICTION WRITER PROSE Work Phone: Start: 10-21-2024 End: 17-66-3287Snwml metabolic panel calcium totalBrett W Might INSURANCE VERIFICATION REP - FICTION AND NONFICTION WRITER PROSE Work Phone: Start: 19-72-2970Uf abdomen & pelvis w/contrast Haim Vazquez MD Work Phone: Start: 20-06-6484Kg thorax w/contrast Haim Vazquez MD Work Phone: Start: 18-69-9263Ejcci count complete auto&auto difrntl wbcGraeme Vazquez MD Work Phone: Start: 88-10-3446Hcnhdkukrf exam chest 2 Marilynn Santiago MD Work Phone: Start: 68-34-7059Mz abdomen & pelvis w/contrast Haim Vazquez MD Work Phone: Start: 37-17-0405Gw thorax w/contrast Haim Vazquez MD Work Phone: Start: 75-97-5129Ofkny of troponin quantitativeSean Ray MDStart: 55-01-9120Ez thorax w/contrast materialSean Ray MDStart: 03-22-2024 Radiologic exam chest single viewSean Ray MDStart: 94-96-6532Ounal metabolic panel calcium totalSean Ray MDStart: 73-61-1201Say routine ecg w/least 12 lds w/i&rSean Ray MDStart: 60-39-3778Wt abdomen & pelvis w/contrast materialHolly Wero INSURANCE VERIFICATION REP.FICTION AND NONFICTION WRITER PROSE Work Phone: Start: 75-93-0676Zt thorax w/contrast materialHolly Wero INSURANCE VERIFICATION REP.FICTION AND NONFICTION WRITER PROSE Work Phone: Start: 11-94-7445Abqbp count complete auto&auto difrntl wbcHolly Wero INSURANCE VERIFICATION REP.FICTION AND NONFICTION WRITER PROSE Work Phone: Start: 25-03-4870Uc abdomen & pelvis w/contrast materialGraeme Vazquez MD Work Phone: Start: 22-77-1112Ay thorax w/contrast Haim Vazquez MD Work Phone: Start: 83-02-0495Gn abdomen & pelvis w/contrast materialGraeme Vazquez MD Work Phone: Start: 47-53-8210Pr thorax w/contrast materialGraeme Vazquez MD Work Phone: Start: 72-99-0238Xg thorax w/o contrast materialHolly Wero INSURANCE VERIFICATION REP.FICTION AND NONFICTION WRITER PROSE Work Phone: Start: 24-72-5422SLV screeningDR DI OCHOA .Comment on above:Performed By: #### IRON, PSASC, VITAD #### [facility] [address] [place] [address] Dr. Maddox [facility] HospitalStart: 54-81-5021Cbgqx dip stick/tablet reagent auto microscopy Bulk Order ProviderStart: 53-15-0228Tlauiozo screenGalen Bhatt MD Work Phone: Start: 53-67-4174Qusukeh bacterial quanttative colony count urineRobann marie Bhatt MD Work Phone: Start: 63-83-0833Ku abdomen & pelvis w/o contrst 1/> body reRobert Benjamín Bhatt MD Work Phone: Start: 33-68-5183Sxjofhtfrpj removal of ureteric stent Jian RODRIGUEZ Start: 45-62-7993Kkmoib biopsyJian RODRIGUEZ Comment on above:Right ureteroscopy, Right renal Wash for cytology, holmium laser of right renal tumor, Right stent placementStart: 36-43-3565Rtqivdxzdybz of mitomycin C into bladderPatrick RODRIGUEZ Comment on above:03/05/2019 , 03/30/2019Start: 02-05-2019 Transurethral resection of bladder neoplasmJian RODRIGUEZ Start: 78-52-2092JotchcubtpuskxkediZmtwkeg Xintu Shuju Comgopo on above:left sideStart: 87-14-4827Ekwujp of bladderJian [employer] Comment on above:05/15/2018 * Cysto, bladder bx, fulguration, left ureteral dilation, left ureteroscopy, ureteral biopsy, left pyeloscopy, right ureteroscopy, left stent placement with clot evacuation. 04/05/2016* cystoscopy, bilateral rg, bladder biopsy, fulguration.Start: 05-78-0300UibthejuqjNhdlwyy WATERS Comyaxo on above:05/10/2016 * Cysto, rigid ureteral dilation, ureteroscopy, pyeloscopy, basket extraction of renal stone, left stent placementStart: 87-36-1892Vxldoc biopsyJian [employer] Comabcz on above:01/10/2012 * Cysto, left stent change, ureteroscopy, renal biopsy x 3Start: 34-41-9437Ifnjhejaylss of BCG into the [employer] Comejui on above:BCG # 6 09/18/10 BCG #3 02/18/2012 BCG #3 12/09/2012 BCG #2 12/16/2017Start: 21-26-1610Sqbewpw of stentJian [employer] Comdtvy on above:left side, 08/30/2010, 05/29/2016Start: 90-02-2538Oabtheozbz and transurethral resection of bladder tumorJian RODRIGUEZ Comkfrx on above:08/10/2010 * Cysto, TURBT/TURP/left ureteroscopy, left stent placementStart: 06-42-9107KyekrfkeovUlphdrg WATERS Comment on above:07/21/2010, 11/20/2010, 02/19/2011, 05/29/2011, 09/11/2011, 11/27/2011, 04/25/2012, 08/04/2012, 10/21/2012, 07/20/2013, 01/18/2014, 11/23/2014, 12/05/2015, 11/27/2016, 06/04/2017, 11/19/2017, 03/11/2018, 09/23/2018, 12/31/2017Decompression of median nerveGlass & Marker Dilation of urethraGlass & Marker Comaruj on above:12/09/2012 * cysto/UD with pelaez soundsHernia repairGlass & Marker Lumbar spinal fusionGlass & Marker Transurethral prostatectomyGlass & Marker Comment on above:08/10/2010 * turp 12/27/2011 * cystoscopy, trev rg, ureteroscopy, bladder bx, TURP and left stent placement Plan of Treatment DateCare ActivityDetailAuthorStart: 15-03-3867TWkG,Tdap and Td Vaccines (3 - Td or Tdap)DTaP,Tdap and Td Vaccines (3 - Td or Tdap)[facility] SystemStart: 31-58-6343DSxM/Tdap/Td vaccine (2 - Tdap)DTaP/Tdap/Td vaccine (2 - Tdap)[facility]ITALStart: 50-55-2950Jmiqg microalbumin profileCleadena health system Clinic Start: 30-34-5877Uocwwpdt ScreeningDiabetes ScreeningCleadena health system ClinicStart: 65-69-8170Wwnhtzjy ScreeningDiabetes ScreeningCleadena health system ClinicStart: 10-16-2027 Diabetes ScreeningDiabetes ScreeningCleadena health system ClinicStart: 19-98-9404Ehsykfjn ScreeningDiabetes ScreeningCleadena health system ClinicStart: 75-25-9888Enqblzla Screening Diabetes ScreeningCleadena health system ClinicStart: 22-47-4244Lldjowpr ScreeningDiabetes ScreeningTriHealth Good Samaritan Hospitaltart: 90-42-4915Cwmicizt ScreeningDiabetes Screening [facility] Hospitaltart: 06-03-9880Xnbwwerx ScreeningDiabetes ScreeningTriHealth Good Samaritan Hospitaltart: 08-79-4143Idchwslg ScreeningDiabetes ScreeningHolzer Medical Center – [facility] Start: 10-98-5911Xbbdzspz ScreeningDiabetes ScreeningTriHealth Good Samaritan Hospitaltart: 60-48-9117Lgscqgnb ScreeningDiabetes ScreeningTriHealth Good Samaritan Hospitaltart: 11-02-2026 Diabetes ScreeningDiabetes ScreeningTriHealth Good Samaritan Hospitaltart: 77-40-3521Buptgkhi ScreeningDiabetes ScreeningTriHealth Good Samaritan Hospitaltart: 15-27-6172Rgqieder Screening Diabetes ScreeningTriHealth Good Samaritan Hospitaltart: 95-54-0483Mkcqutup ScreeningDiabetes ScreeningTriHealth Good Samaritan Hospitaltart: 98-06-2555Ekoamkyz ScreeningDiabetes Screening [facility] Hospitaltart: 00-94-0061Xzgkbrtj ScreeningDiabetes ScreeningTriHealth Good Samaritan Hospitaltart: 61-27-2725VGAZIDCP SCREENDIABETES SCREENTriHealth Good Samaritan Hospitaltart: 79-69-3807OJXPBDNI SCREENDIABETES SCREENTriHealth Good Samaritan Hospitaltart: 93-38-1054Vuchljf ScreeningTobacco ScreeningClinton Memorial Hospitalca [facility] Healthcare SystemStart: 58-80-9847Rpmzinq ScreeningTobacco ScreeningWakeMed Cary Hospitaltart: 69-44-3936TPTXVNON SCREENDIABETES SCREENTriHealth Good Samaritan Hospitaltart: 19-47-0634IIPAMXTN SCREENDIABETES SCREENTriHealth Good Samaritan Hospitaltart: 20-97-7240OPQNQTDS SCREENDIABETES SCREENTriHealth Good Samaritan Hospitaltart: 51-63-8854Lnlmhvlsbs ScreenDepression ScreenBon Secours East Ohio Regional HospitalStart: 22-54-6176ABAQJYOA SCREENDIABETES SCREENTriHealth Good Samaritan Hospitaltart: 27-67-9390PYBDKESI SCREENDIABETES SCREENTriHealth Good Samaritan Hospitaltart: 11-02-2025 End: 34-02-2016Vwntxww encounter vnjzyamah98/20/2026 8:40 AM EST Office Visit [facility] [address] [place] [phone] Might, Marilu W, INSURANCE VERIFICATION REP - FICTION AND NONFICTION WRITER PROSE [address] [facility] [place] [address] AWV and 6 monthReg[facility] Company [facility] Care TiffinComment on above:AWV and 6 monthStart: 11-44-2179Aegshh Wellness Visit (Medicare)Annual Wellness Visit (Medicare)Bon [employer] [facility] HealthcareStart: 16-43-1003PITEO-19 Vaccine ()COVID-19 Vaccine ( season)Bon [facility] HospitalQirraSound Technologies Uk HealthcareComment on above:Postponed from 06/14/2024 (Patient Refused)Start: 48-37-1632Fjlvnndel vaccinationBon [facility] HospitalQirraSound Technologies Uk HealthcareComment on above: Postponed from 05/14/2024 (Patient Refused)Postponed from 05/14/2025 (Patient Refused)Start: 34-18-9894Epcly panelLipidsBon [facility] TownshipStart: 33-16-2953KVMZILCL SCREENDIABETES SCREENCleadena health system ClinicStart: 06-14-2025 Influenza vaccinationTriHealth Good Samaritan Hospitaltart: 05-31-2025 End: 42-91-2323Jdzvcej encounter jootyaxfk08/18/2025 8:00 AM EDT Office Visit [address] [phone] Harpreet Avalos INSURANCE VERIFICATION REP-FICTION AND NONFICTION WRITER PROSE [address] [place] [address] [facility]woodtart: 05-17-2025 End: 44-00-9975Lprcffl encounter sruoxalre21/04/2025 8:30 AM EDT Office Visit [address] [phone] Harpreet Avalos, INSURANCE VERIFICATION REP-FICTION AND NONFICTION WRITER PROSE [address] [facility] [place] [address] [facility] Kingwoodtart: 05-08-2025 End: 61-65-1835Urlsrxl encounter tmqciadwk20/26/2025 10:30 AM EDT Office Visit [facility] [address] [place] [phone] Chago Hernandez, INSURANCE VERIFICATION REP-FICTION AND NONFICTION WRITER PROSE [address] [place] [address] [facility] Start: 04-30-2025 End: 75-02-1108Qmaabl-up muhdnejpr43/18/2025 9:40 AM EDT Visit (SP) Office Hematology/Oncology [address] [place], [place] [phone] Graeme Vazquez MD [address] [place] [address] 6 month follow up after ct and labHematology/OncologyComment on above:6 month follow up after ct and labStart: 04-27-2025 End: 61-13-1001Vtotxqb encounter cilfupncn17/15/2025 8:40 AM EDT Office Visit [facility] [address] [place] [phone] Marilu Roach, INSURANCE VERIFICATION REP - FICTION AND NONFICTION WRITER PROSE [address] [place] [address] 6 [facility] TiffinComment on above:6 monthsStart: 04-23-2025 End: 31-32-9433Eoavqyt encounter xtbtxgyag73/11/2025 7:45 AM EDT Appointment Radiology Pet CT [address] [place] [place] [address] Ct CAP with contrast and labRadiology Pet CTComment on above:Ct CAP with contrast and lab Start: 04-22-2025 End: 20-48-7804EYU W Auto Differential panel - BloodCOMPLETE BLOOD COUNT AND DIFFERENTIAL Lab Routine Malignant neoplasm of overlapping sites of bladder (HCC) Malignant neoplasm of urinary bladder, unspecified site (HCC) CKD (chronic kidney disease), stage V (HCC) Expected: 04/22/2025 (Approximate), Expires: 10/23/2025leveland ClinicComment on above:Expected: 04/22/2025 (Approximate), Expires: 10/23/2025Start: 04-22-2025 End: 57-22-2720Vxodryiwnuqto metabolic 2000 panel - Serum or PlasmaCOMPREHENSIVE METABOLIC PANEL Lab Routine Malignant neoplasm of overlapping sites of bladder (HCC) Malignant neoplasm of urinary bladder, unspecified site (HCC) CKD (chronic kidney disease), stage V (HCC) Expected: 04/22/2025 (Approximate), Expires: 10/23/2025[facility] ClinicComment on above:Expected: 04/22/2025 (Approximate), Expires: 10/23/2025Start: 04-22-2025 End: 84-01-0649WZ Abdomen and Pelvis W contrast IVCT ABD/PEL W IVCON Radiology Routine Malignant neoplasm of overlapping sites of bladder (HCC) Malignant neoplasm of urinary bladder, unspecified site (HCC) CKD (chronic kidney disease), stage V (HCC)Malignant neoplasm of ureteric orifice (HCC) Expected: 04/22/2025 (Approximate), Expires: 11/22/[address]25[facility] Work Phone: Comment on above:Expected: 04/22/2025 (Approximate), Expires: 11/22/2025Start: 04-22-2025 End: 17-60-8290WK Chest W contrast IVCT CHEST W IVCON Radiology Routine Malignant neoplasm of overlapping sites of bladder (HCC) Malignant neoplasm of urinary bladder, unspecified site (HCC) CKD (chronic kidney disease), stage V (HCC) Malignant neoplasm of ureteric orifice (HCC) Expected: 04/22/2025 (Approximate), Expires: 11/22/2025[facility] ClinicComment on above:Expected: 04/22/2025 (Approximate), Expires: 11/22/2025Start: 68-06-9815Tgyrvvywfw Screen Depression ScreenBon [facility] TownshipStart: 38-96-8619Wbxagaaqgtl Syncytial Virus (RSV) or age 60 yrs+ (1 - 1-dose 75+ series)Respiratory Syncytial Virus (RSV) or age 60 yrs+ (1 - 1-dose 75+ series)Bon [facility] TownshipComment on above:Postponed from 2014 (Patient Refused)Start: 83-38-8713Gdmjbqdw vaccine (2 of 2)Shingles vaccine (2 of 2)Bon [facility] TownshipComment on above:Postponed from 10/07/2023 (Patient Refused)Start: 04-22-2025 End: 90-10-5370KHY W/REFLEX FT4TSH W/REFLEX FT4 Lab Routine Disorder of thyroid Expected: 04/22/2025 (Approximate), Expires: 07/22/2025[facility] ClinicComment on above:Expected: 04/22/2025 (Approximate), Expires: 07/22/2025Start: 13-96-6517PCURDZXV SCREENDIABETES SCREENTriHealth Good Samaritan Hospitaltart: 03-05-2025 DIABETES SCREENDIABETES SCREENTriHealth Good Samaritan Hospitaltart: 84-04-9054WMDEWQVO SCREEN DIABETES SCREENTriHealth Good Samaritan Hospitaltart: 90-19-3719NAVLPGSY SCREENDIABETES SCREEN [facility] ClinicStart: 32-77-9275AJMEPVML SCREENDIABETES SCREENHolzer Medical Center – [facility] Start: 58-09-6532CQUWVMBJ SCREENDIABETES SCREENTriHealth Good Samaritan Hospitaltart: 01-15-2025 DIABETES SCREENDIABETES SCREENTriHealth Good Samaritan Hospitaltart: 39-78-0513ZBATVONA SCREEN DIABETES SCREENTriHealth Good Samaritan Hospitaltart: 10-27-2024 End: 63-54-5654Kckmary encounter jixzyvtep04/14/2025 9:00 AM EST [facility] Visit [facility] [address] [place] [phone] Marilu Roach, INSURANCE VERIFICATION REP - FICTION AND NONFICTION WRITER PROSE [address] [place] [address] 6 mos w/Labs awvMuniversity hospitals [facility] Primary Care TiffinComment on above:6 mos w/Labs awvStart: 10-23-2024 End: 29-31-4919Ychijh-up fpqwkiugq55/10/2025 9:40 AM EST Visit (SP) Office Hematology/Oncology [address] [place] [address] [address] [place], [place] [phone] Graeme Vazquez MD [address] [place] [address] 9 week follow up for ct and lab reviewHematology/Oncology Comment on above:9 week follow up for ct and lab reviewStart: 10-16-2024 End: 12-24-2885KGT W Auto Differential panel - BloodCOMPLETE BLOOD COUNT AND DIFFERENTIAL Lab Routine Malignant neoplasm of overlapping sites of bladder (HCC) Expected: 10/16/2024 (Approximate), Expires: 08/21/2025[facility] Comment on above:Expected: 10/16/2024 (Approximate), Expires: 08/21/2025Start: 10-16-2024 End: 38-35-9303Mgsxgmomtgsry metabolic 2000 panel - Serum or PlasmaCOMPREHENSIVE METABOLIC PANEL Lab Routine Malignant neoplasm of overlapping sites of bladder (HCC) Expected: 10/16/2024 (Approximate), Expires: 08/21/2025[facility] Comment on above:Expected: 10/16/2024 (Approximate), Expires: 08/21/2025Start: 10-16-2024 End: 19-47-1966QO Abdomen and Pelvis W contrast IVCT ABD/PEL W IVCON Radiology Routine Malignant neoplasm of overlapping sites of bladder (HCC) Expected: 10/16/2024 (Approximate), Expires: 09/20/2025[facility] Work Phone: Comment on above:Expected: 10/16/2024 (Approximate), Expires: 09/20/2025Start: 10-16-2024 End: 30-52-9955LH Chest W contrast IVCT CHEST W IVCON Radiology Routine Malignant neoplasm of overlapping sites of bladder (HCC) Expected: 10/16/2024 (Approximate), Expires: 09/20/2025[facility] CenterComment on above:Expected: 10/16/2024 (Approximate), Expires: 09/20/2025Start: 10-16-2024 End: 19-00-1593Nrgffkn encounter zgelluxvc88/03/2025 7:45 AM EST Appointment Radiology Pet CT [address] [place] [place] [address] CAP with contrast and labRadiology Pet CTComment on above:[address] CAP with contrast and labStart: 21-32-7455Mmjfqax Directive DiscussionAdvance Directive DiscussionCleveland ClinicStart: 07-06-2024 End: 17-98-1097Rmkquv-up encounterHematology/OncologyComment on above:follow up and chemotx KeytrudaStart: 07-06-2024 End: 62-24-5660Rmhxyjv encounter egstqikpj72/23/2024 8:45 AM EDT Office Visit [facility] [address] [place] [address] follow up and chemotx KeytrudaNortHutzel Women's Hospital LaboratoryComment on above:follow up and chemotx KeytrudaStart: 06-29-2024 End: 30-84-1534DZI W Auto Differential panel - BloodCOMPLETE BLOOD COUNT AND DIFFERENTIAL Lab Routine 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), 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, unspecified site (HCC) Disorder of thyroid Abnormal blood chemistry Expected: 06/29/2024 (Approximate), Expires: 09/28/2024[facility] ClinicComment on above:Expected: 06/29/2024 (Approximate), Expires: 09/28/2024Start: 06-29-2024 End: 65-34-5965Kmlzhhmqfleqa metabolic 2000 panel - Serum or PlasmaCOMPREHENSIVE METABOLIC PANEL Lab Routine 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), 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, unspecified site (HCC) Disorder of thyroid Abnormal blood chemistry Expected: 06/29/2024 (Approximate), Expires: 09/28/2024[facility] ClinicComment on above:Expected: 06/29/2024 (Approximate), Expires: 09/28/2024Start: 06-29-2024 End: 31-86-8438Csuuymux [Mass/volume] in Serum or PlasmaCORTISOL, SERUM Lab Routine Malignant 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 ki dney disease), 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, unspecified site (HCC) Disorderof thyroid Abnormal blood chemistry Expected: 06/29/2024 (Approximate), Expires: 09/28/2024[facility] ClinicComment on above:Expected: 06/29/2024 (Approximate), Expires: 09/28/2024Start: 06-29-2024 End: 89-45-4558TB Abdomen and Pelvis W contrast IVCT ABD/PEL W IVCON Radiology Routine 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), 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, unspecified site (HCC)Disorder of thyroid Abnormal blood chemistry Expected: 06/29/2024 (Approximate), Expires: 06/17/2025[facility] Work Phone: Comment on above:Expected: 06/29/2024 (Approximate), Expires: 06/17/2025Start: 06-29-2024 End: 55-98-5626UC Chest W contrast IVCT CHEST W IVCON Radiology Routine 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), 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, unspecified site (HCC) Disorder of thyroid Abnormal blood chemistry Expected: 06/29/2024 (Approximate), Expires: 06/17/2025[facility] ClinicComment on above:Expected: 06/29/2024 (Approximate), Expires: 06/17/2025Start: 06-29-2024 End: 36-09-2067Wjxzecosgw A1c in BloodHEMOGLOBIN A1C Lab Routine 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), 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, unspecified site (HCC) Disorder of thyroid Abnormal blood chemistry Expected: 06/29/2024 (Approximate), Expires: 09/28/2024[facility] ClinicComment on above:Expected: 06/29/2024 (Approximate), Expires: 09/28/2024Start: 06-29-2024 End: 22-61-6776Ghcqewgoyyg [Units/volume] in Serum or PlasmaTHYROID STIMULATING HORMONE Lab Routine 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), 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, unspecified site (HCC) Disorder of thyroid Abnormal blood chemistry Expected: 06/29/2024 (Approximate), Expires: 09/28/2024[facility] ClinicComment on above: Expected: 06/29/2024 (Approximate), Expires: 09/28/2024Start: 06-29-2024 End: 56-43-2242Sxtircl encounter ihustuska30/16/2024 8:45 AM EDT Appointment Radiology Pet CT [address] [place] [address] [place] [address] ct cap Radiology Pet CTComment on above:ct capStart: 11-45-6574RLQDW-19 Vaccine ( season)COVID-19 Vaccine ()[facility] Start: 26-82-9901KBAPX-19 Vaccine ()COVID-19 Vaccine ( season)[facility] SystemStart: 74-15-8533Rnozb-19 Vaccine ()Covid-19 Vaccine ()[facility]: 79-71-0830Ogxou-19 Vaccine ()Covid-19 Vaccine ()[facility]: 79-83-6094Rrokygigl vaccinationHolzer Medical Center – [facility] Start: 08-42-0746Bpdsollcj vaccinationMARY WASHINGTON HOSPITALStart: 04-22-2024 End: 24-95-3297Fubbowf encounter sqkhgilwz77/10/2024 2:00 PM EDT Office Visit [facility] [address] [place] [phone] Marilu Roach, INSURANCE VERIFICATION REP - FICTION AND NONFICTION WRITER PROSE [address] [place] [address] establish care- okay per [facility] TiffinComment on above:establish care- okay per mariluStart: 04-21-2024 End: 93-16-9332Cpmoacn encounter puquqzslm30/09/2024 12:30 PM EDT Office Visit [facility] Part of [address] [place] [address] Jenni De La Rosa, INSURANCE VERIFICATION REP - FICTION AND NONFICTION WRITER PROSE [address] [facility] [address] [place] [address] [facility] Part of [facility] Valley HospitalComment on above:gastritisStart: 03-22-2024 Annual Wellness Visit (Medicare)Annual Wellness Visit (Medicare)EWA MENDEZMARCIN [facility]Start: 03-20-2024 End: 45-64-0042Wibqqo-up encounterHematology/OncologyComment on above:follow up and chemotx KeytrudaStart: 03-20-2024 End: 60-37-3662Usslqon encounter fmtrlsemw53/07/2024 8:30 AM EDT Office Visit [facility] [address] [place] [address] [place] [address] Labs This Day Per [facility] Staff MessageNortHutzel Women's Hospital LaboratoryComment on above:Labs This Day Per [facility] Staff Message Start: 02-05-2024 End: 04-76-9172qopmymfotl26/24/2024 9:15 AM EDT [facility] Hematology/Oncology [address] [place] [address] chemotx KeytrudaHematology/OncologyComment on above:chemotx KeytrudaStart: 02-05-2024 End: 07-31-3991Tvebuh-up dgqypvokf52/24/2024 9:00 AM EDT Visit (SP) Office Hematology/Oncology [address] [facility] [place], [place] [phone] Graeme Vazquez MD [address] [place] [address] 6 week follow up w/ possible KeytrudaHematology/Oncology Comment on above:6 week follow up w/ possible KeytrudaStart: 12-24-2023 End: 69-28-3530AKR W Auto Differential panel - BloodCBC + DIFF Lab Routine 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), stage V (HCC) Abnormal weight loss Malignant neoplasm of urinary bladder, unspecified site (HCC) Expected: 12/24/2023, Expires: 03/24/2024 [facility] Work Phone: Comment on above:Expected: 12/24/2023, Expires: 03/24/2024Start: 12-24-2023 End: 68-94-4355Ndkuasgsjosei metabolic 2000 panel - Serum or PlasmaCOMP METABOLIC PANEL Lab Routine 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), stage V (HCC) Abnormal weight loss Malignant neoplasm of urinary bladder, unspecified site (HCC) Expected: 12/24/2023, Expires: 03/24/2024[facility] Work Phone: Comment on above:Expected: 12/24/2023, Expires: 03/24/2024Start: 05-93-9933Rlwmomw Directive DiscussionAdvance Directive DiscussionCleAdena Fayette Medical Centertart: 82-84-8626Oicjqhcluv Health ScreeningBehavioral Health ScreeningTriHealth Good Samaritan Hospitaltart: 32-26-6678Bqiamvzupm Assessment Depression AssessmentTriHealth Good Samaritan Hospitaltart: 14-32-5551Hdwvwjnqmhycll of varicella zoster vaccineZoster (Shingles) Vaccine (2 of 2)IAMINTOIT SystemStart: 06-48-2017Poziccen vaccine (2 of 2)Shingles vaccine (2 of 2)[facility]ITALStart: 33-04-5717Shbvhuwi Vaccine (2 of 2)Shingrix Vaccine (2 of 2)[facility]: 08-22-2023 End: 91-15-9708Xa abdomen & pelvis w/contrast materialCT ABD/PEL W IVCON Radiology Routine Malignant neoplasm of overlapping sites of bladder (HCC) Expected: 08/22/2023 (Approximate), Expires: 08/16/2024[facility] Work Phone: Comment on above:Expected: 08/22/2023 (Approximate), Expires: 08/16/2024Start: 08-22-2023 End: 95-78-4315HJ CHEST W IVCONCT CHEST W IVCON Radiology Routine Malignant neoplasm of overlapping sites of bladder (HCC) Expected: 08/22/2023 (Approximate), Expires: 08/16/2024[facility] Work Phone: Comment on above:Expected: 08/22/2023 (Approximate), Expires: 08/16/2024Start: 07-19-2023 End: 88-66-7283JVW W Auto Differential panel - BloodCBC + DIFF Lab Routine Malignant neoplasm of overlapping sites of bladder (HCC) Malaise and fatigue Expected: 07/19/2023, Expires: 09/18/2023[facility] Work Phone: Comment on above:Expected: 07/19/2023, Expires: 09/18/2023Start: 07-19-2023 End: 12-46-1443Zrapxjnmlmtuf metabolic 2000 panel - Serum or PlasmaCOMP METABOLIC PANEL Lab Routine Malignant neoplasm of overlapping sites of bladder (HCC) Malaise and fatigue Expected: 07/19/2023, Expires: 09/18/2023[facility] Work Phone: Comment on above:Expected: 07/19/2023, Expires: 09/18/2023Start: 07-19-2023 End: 73-68-3781Bkdnvdrokoy [Units/volume] in Serum or PlasmaTSH BLD Lab Routine Malignant neoplasm of overlapping sites of bladder (HCC) Malaise and fatigue Exp ected: 07/19/2023, Expires: 09/18/2023[facility] Work Phone: Comment on above:Expected: 07/19/2023, Expires: 09/18/2023Start: 90-29-4581JBCVT-19 Vaccine ( season)COVID-19 Vaccine ( season)[facility]ITALStart: 74-00-1854Urlzj-19 Vaccine ( season)Covid-19 Vaccine ( season)[facility]: 74-63-3355Hfuhegczd vaccinationTriHealth Good Samaritan Hospitaltart: 04-25-2023 End: 65-28-9497Hezbhpses (T4) free [Mass/volume] in Serum or PlasmaC[facility] Clinic [facility] Work Phone: Comment on above:Expected: 04/25/2023, Expires: 06/25/2023Start: 04-25-2023 End: 99-20-9140Smqikpyzigcpndqs (T3) [Mass/volume] in Serum or PlasmaC[facility] Clinic [facility] Work Phone: Comment on above:Expected: 04/25/2023, Expires: 06/25/2023Start: 12-19-2022 End: 86-48-7852Nurvg function 2000 panel - Serum or PlasmaRENAL FUNCTION PANEL Lab Routine CELSO (acute kidney injury) (HCC) Expected: 12/19/2022, Expires: 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 Work Phone: Comment on above:Expected: 03/13/2022, Expires: 03/13/2023Start: 02-19-2022 End: 37-09-3350KMF W Auto Differential panel - BloodCBC + DIFF Lab Routine Malignant neoplasm of ureter, unspecified laterality (HCC) Expected: 02/19/2022, Expires: 04/21/2022[facility] Work Phone: Comment on above:Expected: 02/19/2022, Expires: 04/21/2022tart: 02-19-2022 End: 58-78-5186Hvwvfezuyteop metabolic 2000 panel - Serum or PlasmaCOMP METABOLIC PANEL Lab Routine Malignant neoplasm of ureter, unspecified laterality (HCC) Expected: 02/19/2022, Expires: 04/21/2022[facility] Work Phone: Comment on above:Expected: 02/19/2022, Expires: 2Start: 01-22-2022 End: 36-22-9883XKP W Auto Differential panel - BloodCBC + DIFF Lab Routine Malignant neoplasm of ureter, unspecified laterality (HCC) Expected: 01/22/2022, Expires: 03/24/2022[facility] Work Phone: Comment on above:Expected: 01/22/2022, Expires: 03/24/2022tart: 01-22-2022 End: 46-37-2624Lbeworuvioabd metabolic 2000 panel - Serum or PlasmaCOMP METABOLIC PANEL Lab Routine Malignant neoplasm of ureter, unspecified laterality (HCC) Expected: 01/22/2022, Expires: 03/24/2022[facility] Work Phone: Comment on above:Expected: 01/22/2022, Expires: 03/24/2022tart: 36-36-0453QNSMH-19 VACCINE (4 - Booster for Pfizer series) COVID-19 VACCINE (4 - Booster for Pfizer series)[facility]: 39-08-4394XQNUN-19 VACCINE (4 - Booster for Pfizer series)COVID-19 VACCINE (4 - Booster for Pfizer series)[facility]: 76-42-7962SSCVO-19 VACCINE (6 - Pfizer series)COVID-19 VACCINE (6 - Pfizer series)[facility]: 39-48-3428SZAQYCO DIRECTIVE DISCUSSIONADVANCE DIRECTIVE DISCUSSIONTriHealth Good Samaritan Hospitaltart: 49-41-4801UFCNRJOLWS ASSESSMENTDEPRESSION ASSESSMENTCleAdena Fayette Medical Centertart: 37-98-5799Bssctdear vaccinationINFLUENZA (#1)[facility]: 95-10-1304ZIVVKSSCUQQK: 65+ (3 - PPSV23 or PCV20)PNEUMOCOCCAL: 65+ (3 - PPSV23 or PCV20)[facility]: 15-75-1110Fkcld panelLipidsBON [facility] Hospitalart: 82-43-4523KYC Vaccine (1 - 1-dose 75+ series)RSV Vaccine (1 - 1- dose 75+ series)[facility]: 47-19-9192Xfutr microalbumin profile DTAP,TDAP,TD (1 - Tdap)[facility]: 07-01-2005Medicare Annual Wellness VisitMedicare Annual Wellness VisitTriHealth Good Samaritan Hospitaltart: 54-09-5341Ltjb Risk ScreeningFall Risk ScreeningProVan Wert County Hospitaltart: 10-60-2399Equvinmic B Vaccine (1 of 3 - Risk 3-dose series)Hepatitis B Vaccine (1 of 3 - Risk 3-dose series)[facility]: 68-03-2514Vdjxvlcuzkl Syncytial Virus (RSV) or age 60 yrs+ (1 - 1-dose 60+ series)Respiratory Syncytial Virus (RSV) or age 60 yrs+ (1 - 1-dose 60+ series)[facility]: 81-55-7663CMX Vaccine (1 - 1-dose 60+ series)RSV Vaccine (1 - 1-dose 60+ series) [facility]: 90-53-8602MQECKKYO VACCINE (1 of 2)SHINGRIX VACCINE (1 of 2)[facility]: 94-33-1421Cknejaehs A Vaccine (1 of 2 - Risk 2-dose series)Hepatitis A Vaccine (1 of 2 - Risk 2-dose series)[facility]: 47-12-9047ILKCXXRY VACCINE (1 of 2)SHINGRIX VACCINE (1 of 2)[facility] Start: 45-29-9149Dnwcjeq ScreeningAnxiety ScreeningTriHealth Good Samaritan Hospitaltart: 21-91-0438Gsvgevyumf ScreeningDepression ScreeningTriHealth Good Samaritan Hospitaltart: 81-89-3242WKV Vaccine (1 of 2 - Risk 2-dose series)MMR Vaccine (1 of 2 - Risk 2- dose series)[facility]: 83-13-8985Pjxypfmhzk ScreenDepression Screen BON [facility]art: 59-71-9772Yuucewithg ScreeningDepression ScreeningWakeMed Cary Hospitaltart: 45-23-3811Huxrpmdlpitfj B Vaccine: Consider Based On Risk (1 of 4 - Increased Risk)Meningococcal B Vaccine: Consider Based On Risk (1 of 4 - Increased Risk)[facility] End: 38-70-3285St abdomen & pelvis w/contrast materialCT ABD/PEL W IVCON Radiology Routine Malignant neoplasm of overlapping sites of bladder (HCC) 1 Occurrences starting 05/16/[address] [place] [address] Work Phone: Comment on above:1 Occurrences starting 05/16/2023 until 06/14/2024 End: 53-43-5497TP Abdomen and Pelvis W contrast IVCT ABD/PEL W IVCON Radiology Routine Malignant neoplasm of urinary bladder, unspecified site (HCC) 1 Occurrences starting 12/20/[address] [place] [address] Work Phone: Comment on above:1 Occurrences starting 12/20/2023 until 01/18/2025 End: 11-11-3997XP Chest W contrast IVCT CHEST W IVCON Radiology Routine Malignant neoplasm of urinary bladder, unspecified site (HCC) 1 Occurrences starting 12/20/[address] [place] [address] Work Phone: Comment on above:1 Occurrences starting 12/20/2023 until 01/18/2025 End: 40-96-8559EO CHEST W IVCONCT CHEST W IVCON Radiology Routine Malignant neoplasm of overlapping sites of bladder (HCC) 1 Occurrences starting 05/16/[address] [place] [address] Work Phone: Comment on above:1 Occurrences starting 05/16/2023 until 06/14/2024 End: 81-77-7767Dwymhib, Wound (with Gram Stain)[facility] HeyAnitaComment on above:1 Occurrences starting 01/04/2025 until 01/04/2025ECG COMPLETEECG COMPLETE ECG Routine Pre-op evaluation 09/12/2022 11:47 AM [facility] Work Phone: ekg 12 LeadEKG 12 Lead ECG STAT 03/22/2024 5:52 PM EDT [facility] [employer] [facility]OSPITALREFERRAL FOR ADDITIONAL BIOMARKER AND MOLECULAR TESTING REFERRAL FOR ADDITIONAL BIOMARKER AND MOLECULAR TESTING Lab Routine Malignant neoplasm of ureter, unspecified laterality (HCC) 12/03/2022 9:12 AM [facility] Work Phone: [facility] Immunizations Immunization DateImmunizationNotesCare SyhfvivgRfowgtzz63-82-5927lokzth vaccine recombinantChair Winsome Work Phone: [facility] JacksonWsbvwh18-17-9843obydut vaccine, unspecified formulationKatherine Ball INSURANCE VERIFICATION REP-FICTION AND NONFICTION WRITER PROSE Work Phone: [facility] HospitalLhxnqk33-44-2118uaqrsvsycp, tetanus toxoids and pertussis vaccineChair Naranjito Work Phone: [facility] – JacksonQafyzd58-61-0659ZIAR-QgY-3 (COVID-19) mRNA BNT-162b2 [employer] [facility]02-13-2021SARS-CoV-2 (COVID-19) mRNA BNT-162b2 [employer] [facility]01-23-2021SARS-CoV-2 (COVID-19) mRNA BNT-162b2 [employer] [facility] [place] 597820-27-2015influenza nasal, unspecified formulationChair Tipp24 Work Phone: [facility] – JacksonYafqmd01-60-0268nrawhqrjs virus vaccine, unspecified formulationPaSaehwa [employer] [facility] [place] 597820-27-2015influenza, intradermal, quadrivalent, preservative free, injectableSiwally Perea MD Work Phone: [facility] – JacksonLisust31-49-9259ovmzgcngazjq conjugate vaccine, 13 valCamryn Perea MD Work Phone: [facility] JacksonWfjkzw89-26-1316agflcecoxpcn polysaccharide vaccine, 23 valCamryn Perea MD Work Phone: [facility] – JacksonLutjak87-52-2378lioyrkv and diphtheria toxoids, adsorbed, preservative free, for adult use (2 Lf of tetanus toxoid and 2 Lf of diphtheria toxoid)Jian JENNIFER [facility]04-04-2013tetanus and diphtheria toxoids, adsorbed, preservative free, for adult use (5 Lf of tetanus toxoid and 2 Lf of diphtheria toxoid)Soren Perea MD Work Phone: [facility] – JacksonZlsvnt36-50-2449wopwryp and diphtheria toxoids, not adsorbed, for adult useLeni Santiago MD Work Phone: bLewisGale Hospital MontgomeryNEGATED: Highlighted row has not occurred!78-06-9631ccvwtcxuc, injectable, quadrivalent, preservative free Harpreet Avalos APRN-FICTION AND NONFICTION WRITER PROSE Work Phone: [facility] SystemComment on above:Deferred: Patient Refused Payers DatePayer CategoryPayerPolicy [id number] Health Insurance [id number] [id number] 2018 Private Health [id number] 31-46-2461Yuqqfcq Care Other (unspecified)[facility] [id number] 2005MedicareMEDICARE MEDICARE A AND B [id number] 2005-[facility] [phone] [place] [address] [id number] [id number] 1960Medicare [id number] [id number] [id number] 1960Unknown [id number] 2.0.1.122070.3.579.2. [id number] 2.0.1.704322.3.57[id number] 2..1.155839.3.57[id number] 2.840.1.362247.3.57[id number] 2.0.1.700021.3.57[id number] 2.16840.1.541499.3.57[id number] 2.840.1.675989.3.57[id number] 2.16.840.1.605742.3.57[id number] 2.16.840.1.547998.3.57[id number] 2.16.840.1.540168.3.57[id number] 2.16.840.1.156491.3.57[id number] 2.16.840.1.857658.3.579.[id number] 2.16.840.1.859667.3.57[id number] 2.16.840.1.021538.3.57[id number] 2.16.840.1.685325.3.57[id number] 2.16.840.1.637595.3.57[id number] 2.16.840.1.416942.3.[id number] 2.16840.1.453422.19 Social History DateTypeDetailFacilityStart: 07-14-2018 End: 21-09-3922Adguleg smoking status NHISEx-smokerHolzer Medical Center – JacksonComment on above:patient quit smoking over 30 years agoStart: 10-14-1940 End: 52-10-8144Vhwsmjl of tobacco useCurrent smokerTriHealth Good Samaritan Hospitaltart: 10-14-1941 End: 75-71-5750Mxvmuni of tobacco useCigarette SmokerTriHealth Good Samaritan Hospitaltart: 07-14-2018 End: 10-39-6925Zcjetgehov smoked current (pack per day) - Dgqyjrzc7Skaznfpuu ClinicStart: 07-14-2018 End: 16-39-9346Wuywnne use and exposureSmokeless tobacco non-userTriHealth Good Samaritan Hospitaltart: 01-08-2022 End: 47-08-1401Sxiuevr intakeCurrent non-drinker of alcohol (finding)[facility] Hospitaltart: 35-59-5501Fmw Assigned At [facility]tart: 12-29-2021 End: 00-91-1066Qiefyobk to SARS-CoV-2 (event)Not sureTriHealth Good Samaritan Hospitaltart: 11-24-2020 End: 14-81-2407Ylo Assigned At [facility] LimaHistory of tobacco usePassive smokerMary [facility] Hospital smoking statusNeverExecutive Urology of [facility] Hospital Dayton SanduskyComment on above:patient quit smoking over 30 years agoStart: 09-99-1716Hxangn identityIdentifies as male gender (finding)[facility] Hospitaltart: 23-23-5254Arvwoe orientationHeterosexual (finding)[facility] Hospitaltart: 03-22-2024 End: 51-15-3915Ydxatvn intakeLifetime non-drinker (finding)MedVentiveHow often to you have a drink containing alcohol?NeverBROOKS HOSPITALContent Ramen [facility]ITALByteActive [facility]ITALStart: 71-03-7324Npn Assigned At [facility] HospitalNot on fileBON [employer] [facility] Has the electric, gas, oil, or water company threatened to shut off services in your home in past 12MoNoBon HeyAnita(I/We) worried whether (my/our) food would run out before (I/we) got money to buy more.Never trueBon [employer] [facility] HealthcareStart: 05-19-2015 End: 90-36-1490GznTbed (finding)[employer] Procedure CodeEquipment CodeEquipment Original TextEquipment IdentifierDates Inlay [place] Ureteral Stent Kit 7f X [id number]: 29-70-5006Cvbcl Inlay [place] 7fr Taper [place] Polymer Phreecoat 24cm Ureteral - [id number]: 58-88-5723Vinex Inlay [place] 7fr Taper [place] [employer] Polymer Phreecoat 26cm Ureteral - [id number]_riiUahlc: 81-58-6441Xnxdm Nicore Inlay [place] 7fr Taper [place] Green Nitinol Polymer 24cm - [id number] Start: 75-72-6566Iefen Inlay [place] 6fr Taper [place] [employer] Polymer Phreecoat 24cm Ureteral - [id number]: 95-29-7012Ymoaefh pacemaker, device (physical object) ([id number])Pacemaker Ldls Dr Pm 19.5f 32.2 Mm Ra Crd Strl - [id number] - [id number]()[id number], [id number] FDA Start: 31-52-4591Ixgmnjh pacemaker, device (physical object) ([id number])Pacemaker Ldls Dr Levy 19.5f 38.0 Mm Rv Crd Strl - [id number] - [id number] ()[id number], [id number] FDAStart: 04-21-2025 Goals DatePatient GoalDesired Activity/StatePersonal health goalComment on above: Evaluation of progress towards goal: patient progressing toward safe discharge home. Functional Status DjxdYsiqjzeqfbDfsmbeLltjgrvt76-88-2201Idymrulwue StatusN/AExecutive [facility] System02-05-2023Are you deaf, or do you have serious difficulty hearingNo 11/18/2022 10:06 AM Pat Cayr RN [facility]02-05-2023Are you blind, or do you have serious difficulty seeing, even when wearing glassesNo 11/18/2022 10:06 AM Pat Cary RN [facility]02-05-2023Do you have serious difficulty walking or climbing stairsNo 11/18/2022 10:06 AM Pat Cary RN [facility]CK[facility] 77-59-2315Rp you have difficulty dressing or bathingNo 11/18/2022 10:06 AM Pat Cary RN [facility] ClinicMdbjpb44-97-0273Vupftsl of a physical, mental, or emotional condition, do you have difficulty doing errands alone such as visiting a physician's office or shoppingNo 11/18/2022 10:06 AM Pat Cary RN [facility] Mental Status IzkeItufepprirLwfmlsJxfyasws02-02-3934Hgpmhdd of a physical, mental, or emotional condition, do you have serious difficulty concentrating, remembering, or making decisionsNo 11/18/2022 10:06 AM Pat Cary RN [facility] Clinical Notes 07-08-2020 to 07-19-2025 Note Date & WudnTfdjUvozyekk15-50-2196 NoteUT Cardiology - [facility] Iain Austin is a 85 y.o. year old male patient being seen for a 6 follow up appointment with ECHO. 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 He was evaluated [facility] ED and his CBC, BMP, BNP, [...] of breath on ac (more content not included)...[facility]08-04-2025 History of Present illness Narrative* Harpreet Avalos, INSURANCE VERIFICATION REP-FICTION AND NONFICTION WRITER PROSE - 05/17/2025 8:30 AM EDT Images from the original note were not included. Wound Care Progress Note Patient: Juan Jose Austin Date of : 1940 Chief Complaint: Follow-up left chest wound Subjective/HPI: Juan Jose is a 85 y.o. male who presents to [facility] for evaluation of 1 [...] variants x2, and MSSA and variant, and SPECIAL EVENTS ASSISTANT. CULTURE RESULTS Staphylococcus aureus Abnormal Staphylococcus aureus [...] by Bryan Mccoy MD at [facility] (EP) HERNIA REPAIR NEPHRECTOMY Left jul 03, [...] diaphoretic. HENT: Head: Normocephalic and atraumatic. Comments: ANGOON Eyes: General: No scleral icterus. Extraocular Movements: [...] 08 Site Assessment Red 05/17/25847 Julia-wound Assessment Intact;Noonan;Blanchable erythema 05/17/25 0848 Wound Length (cm) 0.3 [...] left chest. 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 Telemedicine Note Consent Statement: [...] that there are some limitations compared to onjo-zf-ypbn evaluations. We elected to proceed. Division of Infectious Diseases - Progress Note Our team prefers to use [employer] for communication during business hours (8 AM - 5 PM). We make every effort to keep the Treatment Team in [employer] updated. If I do not respond within 30 minutes, please call the answering service. From 5 PM - 8 AM, please call our answering service at [phone] to speak to the on-call physician. Patient name: Juan Jose B Austin Patient Today's Date and Time: 05/12/2025, 5:11 PM PCP: Dr. Mayen Might Discharged from [facility] on 04/23/25 Location of provider: [facility] Current location of patient: [place] Impression /Recommendations: PPM pocket infection MSSA Initially presented to [facility] given concern for pacer pocket [...] erythema, swelling and tenderness. He presented to [facility] originally for pacer pocket infection. He thinks the infection began in late December 2024. He was assessed by her sand slinger who thought the pacer wires were starting to erode. It was recommended to have a leadless PPM implanted but could only be done at [facility] or [facility]. He was then transferred. Started of [...] progress note was completed using a voice director of front office system. Every effort was made to ensure accuracy; however, inadvertent computerized director of front office errors may be present. Thank you for allowing us to participate in the care of this patient. Please do not hesitate to reach out to me via EpicChat or pager with any questions or concerns. Adelina Johnson APRN, CNP Please contact via [facility]07-26-2025 History of Present illness Narrative* Chago Hernandez [...] visit. Chief Complaint Patient presents with Follow-up bq-xbcde-kvowktvuo w/pt status post dual-chamber leadless pacemaker Chest infection due to the pacemaker Atrial Fibrillation Shortness of Breath History of Present Illness Juan Jose Austin is a 85-year-old with history of CKD, renal cancer with nephrectomy, ulcerative colitis,remote history of paroxysmal atrial flutter nonobstructive coronary artery disease, syncope/complete heart block with [employer] dual-chamber pacemaker implanted 2022, lead revision January 2024. He follows with [facility] Cardiology. Patient presented to hospital [...] by Bryan Mccoy MD at [facility] ([facility]) HERNIA REPAIR NEPHRECTOMY Left jul 03, 2018 History reviewed. No pertinent family history. Social History Socioeconomic History Marital status: Spouse name: Not on file Number of children: Not on file Years of education: Not on file Highest education level: Not on file Occupational History Occupation: retired Employer: [employer] Tobacco Use Smoking status: Former Types: Cigarettes Smokeless tobacco: Never Vaping Use Vaping status: Never Used Substance and Sexual Activity Alcohol use: No Drug use: No Sexual activity: Never Other Topics Concern Caffeine Use Yes Social History Narrative Not on file Social Drivers of Health Financial Resource Strain: Patient Declined (04/22/2024) Received from [facility] Overall Financial Resource Strain (CARDIA) Difficulty of Paying Living Expenses: Patient declined Food Insecurity: No Food Insecurity (05/03/2025) Hunger Screening Food Insecurity - Worry: Never True Food Insecurity - Inability: Never True Transportation Needs: No Transportation Needs (04/27/2025) Received from [facility] PRAPARE - Transportation Lack of Transportation (Medical): No Lack of Transportation (Non-Medical): No Physical Activity: Insufficiently Active (10/27/2024) Received from [facility] Exercise Vital Sign Days of Exercise per Week: 5 days Minutes of Exercise per Session: 10 min Stress: Not on file Social Connections: Not on file Interpersonal Safety: Not At Risk (04/20/2025) Humiliation, Afraid, Rape, and Kick questionnaire Fear of Current or Ex-Partner: No Emotionally Abused: No Physically Abused: No Sexually Abused: No Housing Instability: Low Risk (04/27/2025) Received from [facility] Housing Stability Vital Sign Unable [...] of paroxysmal atrial flutter Syncope/complete heart block [employer] dual-chamber pacemaker implanted 2022, lead revision January 2024 Incision is healing well. Continues to follow with wound care for dressing/iodoform. Denies groin pain, swelling, bruising. Follow-up with [facility] Cardiology as scheduled. Patient was seen when Dr. Verma was present and immediately available in office suite. TODAYS ORDERS No orders of the defined types were placed in this encounter. FOLLOW UP Return if symptoms worsen or fail to improve. PCP: LIZ LAKHANI Referring Physician: LIZ Lakhani [address] [place] [address] LIZ Combs 05/08/25 1052 documented in this [facility]07-23-2025 Miscellaneous Notes* Telephone Encounter - Gill Chiu CMA - 05/05/2025 2:14 PM EDT Called patient to remind them to bring their most current copy of their medication list with them to their appt. Patient verbalizes understanding. documented in this [facility]07-23-2025 Telephone encounter Note* Telephone Encounter - Gill Chiu CMA - 05/05/2025 2:14 PM EDT Called patient to remind them to bring their most current copy of their medication list with them to their appt. Patient verbalizes understanding. [facility]07-23-2025 Miscellaneous Notes* Telephone Encounter - Jazmine Yu RN - 05/05/2025 9:50 AM EDT Patient's daughter called in stating the wound care nurse needs an order for the patient's sutures to be removed from his device extraction site. Spoke with ORK over the phone, stated sutures should be removed after 14 days. Left message for the [facility] to determine if a verbal [...] on 05/08/25 with BMD documented in this encounterOhio Valley Surgical Hospital07-23-2025 Telephone encounter Note* Telephone Encounter - Jazmine Yu RN - 05/05/2025 9:50 AM EDT Patient's daughter called in stating the wound care nurse needs an order for the patient's sutures to be removed from his device extraction site. Spoke with ORK over the phone, stated sutures should be removed after 14 days. Left message for the [facility] to determine if a verbal or written order is needed. [facility]07-23-2025 Telephone encounter Note* Telephone Encounter - [...] call daughter again to attempt to schedule. [facility] Telephone encounter Note* Telephone Encounter - Jazmine Yu RN - 05/05/2025 9:50 AM EDT Wound check appointment scheduled on 05/08/25 with [facility]07-22[facility] History of Present illness Narrative* Harpreet Avalos APRN-ABIOLA - 05/04/2025 7:08 PM EDT 05/04/25 Contacted patient's daughter Dennis. She reports she was not contacted by Infectious Disease. Discussed that recommendation is for Infectious Disease follow-up to ensure current antibiotic and lengthof treatment is appropriate for finalized surgical wound cultures. Dennis voiced understanding and reports she will call for follow-up appointment. Phone number [phone] provided. Dennis asked proposal writer why sutures were not removed at yesterday's wound care visit. Hop Separator shared with Dennis that patient and his [...] Dr. Mccoy's office provided to patient's daughter ([phone]). She voices understanding to contactoffice to schedule follow-up. We discussed that it is my expectation that sutures would be removed at that time. Wound care is ongoing. Patient has follow-up in place for wound care as well. - LIZ Horvath 05/04/25 7:23 PM LIZ Horvath 05/04/251922 documented in this encounterOhio Valley Surgical Hospital07-21-2025 History of Present illness Narrative* LIZ Horvath - 05/03/2025 3:00 PM EDT Images from the original note were not included. Wound Care Progress Note Patient: Juan Jose Austin Date of : 1940 Chief Complaint: New patient evaluation for left chest wound Subjective/HPI: Juan Jose is a 85 y.o. male who presents to [facility] for evaluation of 1 [...] variants x2, and MSSA and variant, and SPECIAL EVENTS ASSISTANT. Patient denies being directed to follow-up with [...] be negative for vegetations. Will communicate with [facility] ID to ensure no additional [...] by Bryan Mccoy MD at [facility] ([facility]) HERNIA REPAIR NEPHRECTOMY Left jul 03, [...] diaphoretic. HENT: Head: Normocephalic and atraumatic. Comments: ANGOON Eyes: General: No scleral icterus. Extraocular Movements: [...] Site Assessment Red;Bleeding 05/03/25 1518 Julia-wound Assessment Intact;Noonan 05/03/25 151 Wound Length (cm) 0.2 cm [...] daily Continue Keflex as prescribed until gone Hop Separator will communicate with Infectious Disease to ensure no further antibiotics needed in the setting of cultures finalizing positive with MSSA and variants x2, and MSSA & variant, SPECIAL EVENTS ASSISTANT and determine in outpatient follow-up needed. Patient also directed to contact Infectious Disease to schedulefollow-up if needed. Follow-up with Surgeon as scheduled. Patient and Other: Grandson instructed in wound care to left chest. Short term goal: medical compliance [facility] goal: wound closure(maintained closure) Patient verbalizes understanding [...] procedures Referring and communicating with other health transitional care nurse (not separately reported) Documenting clinical information in the electronic or other health record LIZ Horvath 05/03/25 3:29 PM [facility] [phone] LIZ Horvath 05/03/25 2190 documented in this encounterClinton Memorial HospitalRingCaptcha Sturgis [id number] Instructions* Patient Instructions* Skylar Davidson RN - [...] Description moderate Serosanginous serosanguinous documented in this encounterOhio Valley Surgical Hospital07-10-2025 Telephone encounter Note* Telephone Encounter - Shannan Castelan RN - 04/22/2025 9:05 AM EDT Pt scheduled for CT tomorrow. Currently hospitalized at [facility] in [place]. New defibrillator placed- site became reddened and erode at insertion site. Pt will call back to reschedule CT and f/u appt. Yu Martinez to scan notes in chart Thank You! Shannan Castelan RN [facility]07-10-2025 Miscellaneous Notes* Telephone Encounter - Shannan Castelan RN - 04/22/2025 9:05 AM EDT Pt scheduled for CT tomorrow. Currently hospitalized at [facility] in [place]. New defibrillator placed- site became reddened and erode at insertion site. Pt will call back to reschedule CT and f/u appt. Yu Martinez to scan notes in chart Thank You! Shannan Castelan RN documented in this encounterHolzer [facility]-13-2025 NoteUT Electrophysiology Consult Note Reason for visit: [...] moderate, relieved by rest. He was evaluated [facility] ED and his CBC, BMP, BNP, [...] No palpitations. No syncope. (more content not included)...[facility]05-07-2025 Note [place] Electrophysiology Consult Note Reason for visit: S/P [...] moderate, relieved by rest. He was evaluated [facility] ED and his CBC, BMP, BNP, [...] extremity edema. He den (more content not included)...[facility] 02-17-2025 NotePatient is here today for 3 week found check. Patient denies fever, chills, body aches, pain. Review of Systems Constitutional: Negative.[facility]04-22-2025 NoteUT Electrophysiology Consult Note Reason for [...] moderate, relieved by rest. He was evaluated [facility] ED and his CBC, BMP, BNP, [...] he had elevated BNP. (more content not included)...[facility]04-10-2025 NotePOCKET REVISION PROCEDURE NOTE DATE OF [...] Date/Time: 01/21/25 1700 Procedure: Pocket relocate Location: [facility] INSPECTOR AND TESTER 3 / [facility] (Cath) Providers: Olive Bautista MD Clinical information reviewed: Allergies Meds Physical Exam Airway Mallampati: II TM distance: >3 FB Neck ROM: full Cardiovascular Dental Pulmonary Abdominal Anesthesia Plan ASA 3 CSE Anesthetic plan and risks discussed with patient. Use of blood products discussed with patient who. Additional Equipment RequestsUnKettering [facility]04-[facility]-2025 Note [place] Electrophysiology Consult Note Reason for visit: S/P [facility] hospital follow up 01/19/25 Juan Jose has [...] moderate, relieved by rest. He was evaluated [facility] ED and his CBC, BMP, BNP, [...] artifact is not c (more content not included)...[facility]03-28-2025 NoteUT Cardiology - [facility] Iain Austin is a 84 [...] moderate, relieved by rest. He was evaluated [facility] ED and his CBC, BMP, BNP, [...] to apex favoring remote (more content not included)...[facility]01-10-2025 History of Present illness Narrative* Graeme Vazquez MD - 10/23/2024 9:40 AM EST Images from the original note were not included. NAME: DanielJuan Jose CLINIC NO.: [id number] DATE OF SERVICE: October 23, 2024 (Eve) [...] - EGD/Colonoscopy: with Dr. Jacob Bear at [facility] Diverticulitis A. Duodenum, biopsy: - [...] to suggest obstruction. 03/22/2024-04/12/2024 - Admitted at [facility] for non-ST elevated myocardial infarction and diarrhea 02/05/2024-02/07/2024 - Admitted at [facility] bradycardia due to pacemaker malfunction [...] on cross-sectional imaging but have been present [id number]. The largest lesion is hypervascular and may [...] pacemaker was inserted on on 03/18/[address] [facility] with Dr. Bautista. His shortness [...] he is a poor candidate for chemotherapy, [place] based or otherwise. Surgery would yield him [...] which included preparing to see the patient, hydb-vy-xvdj patient care, completing clinical documentation, obtaining and/or reviewing separately obtained history, performing a medically appropriate examination, counseling and educating the patient/family/caregiver, ordering medications, tests, or procedures, independently interpreting results (not separately reported), communicating results to the patient/family/caregiver, and care coordination (not separately reported). Graeme Vazquez MD, CPE Hematology and Oncology Services Provided at: [place], [place] Scribe Attestation: This note was scribed [...] under my direction. CC: Sergio Sneed MD [address] [place] [phone] documented in this encounterHolzer [facility]01-10-2025 NoteHNO ID: [id number] Author: GRAEME VAZQUEZ MD Service: ? Author Type: Physician Type: Progress Notes Filed: 10/23/2024 13:11 Note Text: NAME: DanielJuan Jose [place] CLINIC NO.: [id number] DATE OF SERVICE: October 23, 2024 (Eve) [...] - EGD/Colonoscopy: with Dr. Jacob Bear at [facility] Diverticulitis A. Duodenum, biopsy: - [...] to suggest obstruction. 03/22/2024-04/12/2024 - Admitted at [facility] for non-ST elevated myocardial infarction and diarrhea 02/05/2024-02/07/2024 - Admitted at [facility] bradycardia due to pacemaker malfunction [...] week after to review documented in this encounterHolzer [facility]01-03-2025 History of Present illness Narrative* Margot Smith [...] PATIENT PRESENTS WITH AN IMPLANTABLE OR ATTACHED FAMILY RESOURCE SPECIALIST: No RADIOLOGY DEPARTMENT: CT; Exam(s) Completed: Chest Abdomen Pelvis PERIPHERAL IV DATA: Site assessment: Clean,Dry and Intact, Site disposition Discontinued SIGNED BY: RT Loida(R) October 16, 2024 7:39 AM documented in this encounterHolzer Medical Center [facility]01-03-2025 NoteHNO ID: [id number] Author: MARGOT SMITH RT(Rosa) Service: ? Author [...] PATIENT PRESENTS WITH AN IMPLANTABLE OR ATTACHED FAMILY RESOURCE SPECIALIST: No RADIOLOGY DEPARTMENT: CT; Exam(s) Completed: Chest Abdomen Pelvis PERIPHERAL IV DATA: Site assessment: Clean,Dry and Intact, Site disposition Discontinued SIGNED BY: RT Loida(R) October 16, 2024 7:39 [facility]01-03-2025 NoteHNO ID: [id number] Author: LINDA LAURENT RN Service: ? Author [...] Austin DATE: October 16, 2024 TIME: 7:30 [facility]01-03-2025 Procedure note* Linda Laurent RN [...] DATE: October 16, 2024 TIME: 7:30 AM [facility]01-03-2025 Procedure note* Linda Laurent RN - 10/16/2024 [...] 2024 TIME: 7:30 AM documented in this encounterHolzer Medical Center [facility]12-04-2024 NoteCardiovascular Medicine [facility] SUBJECTIVE Chief Complaint Patient presents with Chest Pain Juan Jose Austin is a 84 y.o. male here for follow-up after his recent ER visit. 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 He stated he felt like something was poking him around his pacemaker but nothing was visible on the outside. He said he had been working on [employer] all day that day. He received a [...] 90 tablet, Rfl: 3 glucosamine/chondroitin weber A/C (DAFCNYZEJDG-UOQQXPGUAAL-UHF C ORAL), Take 1 capsule by mouth [...] Disp: , Rfl: amLODIPin (more content not included)...[facility] 09-16-2024 NoteReview of Systems All other systems reviewed and are negative. believes pain was a pulled muscle from putting up [place] lights no more pain [facility]11-28-2024 Hospital Discharge instructions* Discharge Instructions* Leni Santiago MD - 09/10/2024 9:40 PM EST X-ray read is negative for any acute findings for movement of the pacer. Please call your sand slinger tomorrow discussed with the it is anything else acutely that you need to do or otherwise he may follow-up with PCP at regular scheduled intervals * Attachments The following attachments cannot be sent through Care Everywhere. * Chest Pain: Musculoskeletal (Turkmen) documented in this encounterBon [facility] History of Present illness Narrative* Graeme Vazquez MD - 08/21/2024 9:40 AM EST Images from the original note were not included. NAME: Juan Jose Austin CLINIC NO.: [id number] DATE OF SERVICE: August 21, 2024 (Eve) [...] - EGD/Colonoscopy: with Dr. Jacob Bear at [facility] Diverticulitis A. Duodenum, biopsy: - [...] to suggest obstruction. 03/22/2024-04/12/2024 - Admitted at [facility] for non-ST elevated myocardial infarction and diarrhea 02/05/2024-02/07/2024 - Admitted at [facility] bradycardia due to pacemaker malfunction [...] on cross-sectional imaging but have been present [id number]. The largest lesion is hypervascular and may [...] pacemaker was inserted on on 03/18/[address] [facility] with Dr. Bautista. His shortness [...] planned. Updated Visit, March 07, 2023: Juan Joes returns and is doing better - hard [...] he is a poor candidate for chemotherapy, [place] based or otherwise. Surgery would yield him [...] which included preparing to see the patient, deec-re-tlmd patient care, completing clinical documentation, obtaining and/or reviewing separately obtained history, performing a medically appropriate examination, counseling and educating the patient/family/caregiver, ordering medications, tests, or procedures, independently interpreting results (not separately reported), communicating results to the patient/family/caregiver, and care coordination (not separately reported). Graeme Vazquez MD, CPE Hematology and Oncology Services Provided at: [facility], [place], [place] Scribe Attestation: This note was scribed [...] under my direction. CC: Sergio Sneed MD [facility] [phone] documented in this encounterHolzer Medical Center [facility]11-08-2024 NoteHNO ID: [id number] Author: GRAEME VAZQUEZ MD Service: ? Author Type: Physician Type: Progress Notes Filed: 08/21/2024 11:17 Note Text: NAME: DanielJuan Jose [place] CL[facility] NO.: [id number] DATE OF SERVICE: August 21, 2024 (Eve) [...] - EGD/Colonoscopy: with Dr. Jacob Bear at [facility] Diverticulitis A. Duodenum, biopsy: - [...] to suggest obstruction. 03/22/2024-04/12/2024 - Admitted at [facility] for non-ST elevated myocardial infarction and diarrhea 02/05/2024-02/07/2024 - Admitted at [facility] bradycardia due to pacemaker malfunction [...] RTC in 9 weeks documented in this encounterHolzer Medical Center [facility]09-16-2024 History of Present illness Narrative* Linda Laurent [...] PATIENT PRESENTS WITH AN IMPLANTABLE OR ATTACHED FAMILY RESOURCE SPECIALIST: No RADIOLOGY DEPARTMENT: CT; Exam(s) Completed: Chest Abdomen Pelvis PERIPHERAL IV DATA: Site assessment: Clean,Dry and Intact, Site disposition Discontinued SIGNED BY: RT Lioda(R) June 29, 2024 8:57 AM documented in this encounterHolzer Medical Center [facility]09-16-2024 NoteHNO ID: [id number] Author: LINDA LAURENT RN Service: ? Author [...] Austin DATE: June 29, 2024 TIME: 8:03 [facility]09-16-2024 NoteHNO ID: [id number] Author: MARGOT SMITH RT(R) Service: ? Author [...] PATIENT PRESENTS WITH AN IMPLANTABLE OR ATTACHED FAMILY RESOURCE SPECIALIST: No RADIOLOGY DEPARTMENT: CT; Exam(s) Completed: Chest Abdomen Pelvis PERIPHERAL IV DATA: Site assessment: Clean,Dry and Intact, Site disposition Discontinued SIGNED BY: RT Loida(R) June 29, 2024 8:57 [facility]08-05-2024 Instructions* Patient Instructions* Graeme Vazquez MD - 05/18/2024 1:20 PM EDT Hold pembrolizumab due to colitis Continue weaning steroids CT CAP scans in 6 weeks with labs RTC in 7 weeks documented in this encounterHolzer [facility]-05-[facility]24 History of Present illness Narrative* Graeme Vazquez MD - 05/18/2024 1:00 PM EDT Images from the original note were not included. NAME: Juan Jose Austin CLINIC NO.: [id number] DATE OF SERVICE: May 18, 2024 (Eve) [...] to suggest obstruction. 03/22/2024-04/12/2024 - Admitted at [facility] for non-ST elevated myocardial infarction and diarrhea 02/05/2024-02/07/2024 - Admitted at [facility] bradycardia due to pacemaker malfunction [...] on cross-sectional imaging but have been present [id number]. The largest lesion is hypervascular and may [...] pacemaker was inserted on on 03/18/[address] [facility] with Dr. Bautista. His shortness [...] he is a poor candidate for chemotherapy, [place] based or otherwise. Surgery would yield him [...] which included preparing to see the patient, obiy-uy-gtln patient care, completing clinical documentation, obtaining and/or reviewing separately obtained history, performing a medically appropriate examination, counseling and educating the patient/family/caregiver, ordering medications, tests, or procedures, independently interpreting results (not separately reported), communicating results to the patient/family/caregiver, and care coordination (not separately reported). Graeme Vazquez MD, CPE Hematology and Oncology Services Provided at: [place], [place] CC: Sergio Sneed MD [address] [facility] [address] documented in this encounterHolzer Medical Center – [place]08-05-2024 NoteHNO ID: [id number] Author: GRAEME VAZQUEZ MD Service: ? Author Type: Physician Type: Progress Notes Filed: 05/19/2024 11:18 Note Text: NAME: Juan Jose Austin [place] CLINIC NO.: [id number] DATE OF SERVICE: May 18, 2024 (Eve) [...] to suggest obstruction. 03/22/2024-04/12/2024 - Admitted at [facility] for non-ST elevated myocardial infarction and diarrhea 02/05/2024-02/07/2024 - Admitted at [facility] bradycardia due to pacemaker malfunction [...] with no relief. Pt was admitted to [facility] last week with heart issues and those records are available through care everywhere. Stools for cdiff were negative on Ptrefused colonoscopy while admitted... NICOLETTE: please sign script for prednisone that was pended by Elizabeth back on 03/20. Daughter would like this to go to [facility] in [place]. Lauren Mckeon RN [facility] Work Phone: [phone] Miscellaneous Notes* Telephone Encounter - Lauren Mckeon RN - 03/30/2024 8:44 AM EDT Call received from pt's family member stating the prednisone script from 03/20 still has not been signed, and pt continues with uncontrollable diarrhea. Daughter states patient has >7 diarrhea stools a day and has tried imodium with no relief. Pt was admitted to [facility] last week with heart issues and those records are available through care everywhere. Stools for cdiff were negative on Ptrefused colonoscopy while admitted... NICOLETTE: please sign script for prednisone that was pended by Elizabeth back on 03/20. Daughter would like this to go to [facility] in [place]. Lauren Mckeon RN documented in this encounterHolzer Medical Center – [place]06-07-2024 Telephone encounter Note * Telephone Encounter - Margot So RN - 03/20/2024 12:14 PM EDT Spoke w/ pt's daughter who reports that the pt has not been taking Prednisone. Dr notified and orders to start Prednisone 10 mg/day. Pt's daughter notified and verbalizes understanding. Will call back if his symptoms persist. Nicolette: Rx pended. Margot So RN [facility] Work Phone: [phone] Miscellaneous Notes* Telephone Encounter - Margot So [...] Margot So, RN * Telephone Encounter - Edwnia Olson - 03/20/2024 10:37 AM EDT Patient's daughter, Britt, left message on my voicemail to cancel today's appointment because patient is having issues . Call placed to Britt to reschedule, she did not answer and unable to leave a VM. [phone] Edwina Olson documented in this encounterHolzer Medical Center – [place]06-07-2024 Telephone encounter Note * Telephone Encounter - [...] could try octreotide if GI clears him. [facility] Telephone encounter Note* Telephone Encounter - Margot [...] be a delayed effect? Margot So, RN [facility]06-07-2024 Telephone encounter Note* Telephone Encounter - Edwina Olson - 03/20/2024 10:37 AM EDT Patient's daughter, Britt, left message on my voicemail to cancel today's appointment because patient is having issues . Call placed to Britt to reschedule, she did not answer and unable to leave a VM. [phone] Edwina Olson [facility] [place]04-23-2024 Telephone encounter Note* Telephone Encounter - Edwina Olson - 02/04/2024 8:53 AM EDT Patient called back and has been scheduled with NICOLETTE and possible treatment tomorrow, 02/04. Patient is all set, Thanks! Edwina Olson [facility]04-23-2024 Miscellaneous Notes* Telephone Encounter - Edwina Olson - 02/04/2024 8:53 AM EDT Patient called back and has been scheduled with NICOLETTE and possible treatment tomorrow, 02/04. Patient is all set, Thanks! Edwina Oslon * Telephone Encounter - Edwina Olson - [...] his treatment. Skylar John documented in this encounterHolzer Medical Center [facility] [place]04-22-2024 Telephone encounter Note * Telephone Encounter - Edwina Olson - 02/03/2024 3:44 PM EDT Attempted to contact patient again, no answer. Left another detailed message. Edwina Olson [facility] [place]04-19-2024 Telephone encounter Note* Telephone Encounter - Edwina Olson - 01/31/2024 4:19 PM EDT Call placed to patient, no answer. Left message on voicemail to call back to reschedule. Edwina Olson [facility]04-19-[facility]24 Telephone encounter Note* Telephone Encounter - Margot So RN - 01/31/2024 11:25 AM EDT Clerical: Pt forgot about today's appointment. Offered to have him come in this afternoon instead. Pt would prefer to reschedule to a different day. Margot So RN [facility] Work Phone: [phone] Telephone encounter Note* Telephone Encounter - Skylar John - 01/31/2024 11:18 AM EDT Patient was a no show for his follow up with NICOLETTE & his treatment. Skylar John [facility]04-12-2024 History of Present illness Narrative* Margot Smith [...] PATIENT PRESENTS WITH AN IMPLANTABLE OR ATTACHED FAMILY RESOURCE SPECIALIST: No RADIOLOGY DEPARTMENT: CT; Exam(s) Completed: Chest Abdomen Pelvis With IV and Oral contrast PERIPHERAL IV DATA: Site assessment: Clean,Dry and Intact, Site disposition Discontinued SIGNED BY: RT Loida(R) January 24, 2024 12:16 PM documented in this encounterHolzer Medical Center [facility] [place]03-08-2024 History of Present illness Narrative* Patricia Conteh, MARSHA.FICTION AND NONFICTION WRITER PROSE - 12/20/2023 1:16 PM EST Images from the original note were not included. NAME: Juan Jose Austin CLINIC NO.: [id number] DATE OF SERVICE: December 20, 2023 (Wero) [...] pacemaker was inserted on on 03/18/[address] [facility] with Dr. Bautista. His shortness [...] he is a poor candidate for chemotherapy, [place] based or otherwise. Surgery would yield him [...] Anesthesia Problems No Family History Patricia Conteh APRN.FICTION AND NONFICTION WRITER PROSE Hematology and Oncology Services Provided at: [place], [place] CC: Sergio Sneed MD [address] [facility] [address] I spent a total of 30 minutes on the date of the service which included preparing to see the patient, dgtz-uj-fmsf patient care, completing clinical documentation, obtaining and/or reviewing separately obtained history, performing a medically appropriate examination, counseling and educating the pat ient/family/caregiver, ordering medications, tests, or procedures, independently interpreting results (not separately reported), and communicating results to the patient/family/caregiver. documented in this encounterHolzer Medical Center – [place]03-08-2024 Nurse Note* Jami Bates MA - 12/20/2023 1:10 PM EST Patient state that he has been losing weight, he has no desire to eat, nothing tastes good he has to force himself to eat. Jami Hernandez MA documented in this encounterHolzer Medical Center – [place]02-16-2024 History of Present illness Narrative* Graeme Vazquez MD - 11/29/2023 1:15 PM EST Images from the original note were not included. NAME: Juan Jose Austin [place] CL[facility] NO.: [id number] DATE OF SERVICE: November 29, 2023 (Eve) [...] pacemaker was inserted on on 03/18/[address] [facility] with Dr. Bautista. His shortness [...] he is a poor candidate for chemotherapy, [place] based or otherwise. Surgery would yield him [...] which included preparing to see the patient, pzqs-vh-jzsd patient care, completing clinical documentation, performing a medically appropriate examination, counseling and educating the patient/family/caregiver, ordering medications, tests, or procedures, independently interpreting results (not separately reported), communicating results to the patient/family/caregiver, and care coordination (not separately reported). Graeme Vazquez MD, CPE Hematology and Oncology Services Provided at: [place], [place] Scribe Attestation: This note was scribed [...] my direction. CC: Sergio Sneed MD [address] [facility] [id number] documented in this encounterHolzer Medical Center – [place]02-16-2024 Instructions* Patient Instructions* Jessica Pathak - 11/29/2023 1:14 PM EST Proceed with pembrolizumab cycle 13 today. Hydration today. Follow up in 3 weeks for continued treatment. Labs same day. See Patricia Chandra RTC 6 weeks with co Labs same day documented in this encounterHolzer Medical Center – [place]02-09-2024 Miscellaneous Notes* Telephone Encounter - Edwina Olson - 11/22/2023 1:13 PM EST Patient has been rescheduled to 11/29 and notified. Thanks! Edwina Olson * Telephone Encounter - Margot So RN - 11/22/2023 12:48 PM EST Voicemail message received from pt requesting to reschedule his missed appointment w/ Dr Vazquez. Clerical: Please call pt @ [phone] to schedule. Thanks! Margot So RN * Telephone Encounter - Margot So RN - 11/21/2023 4:06 PM EST Pt still in need of f/u appointment. Call placed to pt. No answer. Message left requesting call back. Call placed to pt's spouse. No answer. Message left requesting call back. Margot So RN documented in this encounterHolzer Medical Center [facility] [place]02-01-2024 Miscellaneous Notes* Telephone Encounter - Elizabeth Beltrán [...] these appointments. HU Moore documented in this encounterHolzer Medical Center – [place]11-16-2023 History of Present illness Narrative* Graeme Vazquez MD - 08/29/2023 1:30 PM EST Images from the original note were not included. NAME: Juan Jose Austin NO.: [id number] DATE OF SERVICE: August 29, 2023 (Eve) [...] pacemaker was inserted on on 03/18/[address] [facility] with Dr. Buatista. His shortness of breath and dizziness has [...] he is a poor candidate for chemotherapy, [place] based or otherwise. Surgery would yield him [...] which included preparing to see the patient, odux-tx-elup patient care, completing clinical documentation, performing a medically appropriate examination, counseling and educating the patient/family/caregiver, ordering medications, tests, or p rocedures, independently interpreting results (not separately reported), communicating results to the patient/family/caregiver, and care coordination (not separately reported). Graeme Vazquez MD, CPE Hematology and Oncology Services Provided at: [place], [place] CC: No referring provider defined for this encounter. Sergio Sneed MD [facility] [facility] [phone] documented in this encounterHolzer Medical Center – [place]11-16-2023 Instructions* Patient Instructions* Graeme Vazquez MD - [...] can restart his Keytruda. documented in this encounterHolzer Medical Center – [place]11-10-2023 History of Present illness Narrative* Shannan Castelan [...] 23, 2023 9:43 AM documented in this encounterHolzer Medical Center – [place]10-26-2023 Miscellaneous Notes* Telephone Encounter - Margot So [...] noted. Margot So RN documented in this encounterHolzer Medical Center – [place]10-05-2023 Instructions* Patient Instructions* Graeme Vazquez MD - 07/18/2023 1:39 PM EDT Proceed with cycle 9 pembrolizumab today. In 3 weeks to for cycle 10. Labs prior No clinician RTC in 6 weeks prior to C11 Labs every [address] in 5 weeks documented in this encounterHolzer Medical Center – [place]10-05-2023 History of Present illness Narrative* Graeme Vazquez [...] pacemaker was inserted on on 03/18/[address] [facility] with Dr. Bautista. His shortness [...] he is a poor candidate for chemotherapy, [place] based or otherwise. Surgery would yield him [...] which included preparing to see the patient, qhfy-nz-uhlf patient care, completing clinical documentation, performing a medically appropriate examination, counseling and educating the patient/family/caregiver, ordering medications, tests, or p rocedures, independently interpreting results (not separately reported), communicating results to the patient/family/caregiver, and care coordination (not separately reported). Graeme Vazquez MD, CPE Hematology and Oncology Services Provided at: [place], [place] CC: No referring provider defined for this encounter. Sergio Sneed MD [facility] [phone] documented in this encounterHolzer Medical Center – [place]09-14-2023 History of Present illness Narrative* Patricia Conteh APRN.FICTION AND NONFICTION WRITER PROSE - 06/27/2023 1:20 PM EDT ONCOLOGY FOLLOW [...] pacemaker was inserted on on 03/18/[address] [facility] with Dr. Bautista. His shortness [...] he is a poor candidate for chemotherapy, [place] based or otherwise. Surgery would yield him [...] APRN.CNP Hematology and Oncology Services Provided at: [place], [place] I spent a total of 30 minutes on the date of the service which included preparing to see the patient, jhgh-wa-jkdj patient care, completing clinical documentation, obtaining and/or reviewing separately obtained history, performing a medically appropriate examination, counseling and educating the pat ient/family/caregiver, ordering medications, tests, or procedures, independently interpreting results (not separately reported), and communicating results to the patient/family/caregiver. documented in this encounterHolzer Medical Center [facility] [place]09-05-2023 History of Present illness Narrative* Galen Bhatt [...] Either the patient or their legal sales representative business courses has been informed of the risks and [...] Dr. Sandy Bhatt MD documented in this encounterHolzer Medical Center – [place]08-24-2023 History of Present illness Narrative* Graeme Vazquez [...] pacemaker was inserted on on 03/18/[address] [facility] with Dr. Bautista. His shortness [...] he is a poor candidate for chemotherapy, [place] based or otherwise. Surgery would yield him [...] which included preparing to see the patient, vehb-ml-acdc patient care, completing clinical documentation, performing a medically appropriate examination, counseling and educating the patient/family/caregiver, ordering medications, tests, or p rocedures, and independently interpreting results (not separately reported). Graeme Vazquez MD, CPE Hematology and Oncology Services Provided at: [place], [place] documented in this encounterHolzer Medical Center – [facility]08-18-2023 Miscellaneous Notes* Telephone Encounter - Jazmine Lopez - 05/31/2023 12:21 PM EDT Requested Prescriptions Pending Prescriptions Disp Refills tamsulosin (FLOMAX) 0.4 mg 30 capsule 5 Sig: Take 1 capsule by mouth once daily. DAUGHTER STATES PATIENT IS OUT OF PILLS documented in this encounterHolzer Medical Center – [place]08-18-2023 History of Present illness Narrative* Shannan Castelan [...] 31, 2023 11:24 AM documented in this encounterHolzer Medical Center – [place]08-03-2023 Instructions* Patient Instructions* Graeme Vazquze MD - 05/16/2023 2:[address] CAP in 1 -2 weeks Reschedule appointment with Dr. Bhatt after CT. Proceed with cycle 6 pembrolizumab today. Follow up in 3 weeks to for cycle 7. Labs prior. Review Scans Hold Lasix for a few days to see if mouth improves. documented in this encounterHolzer Medical Center – [place]08-03-2023 History of Present illness Narrative* Graeme Vazquez [...] pacemaker was inserted on on 03/18/[address] [facility] with Dr. Bautista. His shortness [...] he is a poor candidate for chemotherapy, [place] based or otherwise. Surgery would yield him [...] which included preparing to see the patient, vuaf-dt-iyqo patient care, completing clinical documentation, performing a medically appropriate examination, counseling and educating the patient/family/caregiver, ordering medications, tests, or p rocedures, and independently interpreting results (not separately reported). Graeme Vazquez MD, CPE Hematology and Oncology Services Provided at: [place], [place] documented in this encounterHolzer Medical Center – [facility]07-25-2023 History of Present illness Narrative* Galen Bhatt MD - 05/07/2023 3:10 PM EDT s documented in this encounterHolzer Medical Center – [place]07-13-2023 History of Present illness Narrative* Patricia Conteh [...] pacemaker was inserted on on 03/18/[address] [facility] with Dr. Bautista. His shortness [...] he is a poor candidate for chemotherapy, [place] based or otherwise. Surgery would yield him [...] to discuss when to restage. Patricia Conteh APRN.[facility] Hematology and Oncology Services Provided at: [facility], [place], [place] I spent a total of 30 minutes on the date of the service which included preparing to see the patient, qcjj-qd-vzzs patient care, completing clinical documentation, obtaining and/or reviewing separately obtained history, performing a medically appropriate examination, counseling and educating the pat ient/family/caregiver, ordering medications, tests, or procedures, independently interpreting results (not separately reported), and communicating results to the patient/family/caregiver. documented in this encounterHolzer Medical Center – [place]06-22-2023 History of Present illness Narrative* Patricia Conteh [...] pacemaker was inserted on on 03/18/[address] [facility] with Dr. Bautista. His shortness [...] he is a poor candidate for chemotherapy, [place] based or otherwise. Surgery would yield him [...] APRN.CNP Hematology and Oncology Services Provided at: [place] I spent a total of 30 minutes on the date of the service which included preparing to see the patient, fmwc-sp-vaqz patient care, completing clinical documentation, obtaining and/or reviewing separately obtained history, performing a medically appropriate examination, counseling and educating the pat ient/family/caregiver, ordering medications, tests, or procedures, independently interpreting results (not separately reported), and communicating results to the patient/family/caregiver. 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 Thank you documented in this encounterHolzer Medical Center – [place]04-20-2023 History of Present illness Narrative* Padmini Mike RN - 01/31/2023 9:22 AM EDT No labs today per Dr. Vazquez. Padmini Mike RN documented in this encounterHolzer Medical Center – [place]04-20-2023 Instructions* Patient Instructions* Graeme Vazquez MD - 01/31/2023 8:50 AM EDT Resume C2 pembrolizumab today. RTC in 3 weeks Ask Ms. So to call next week to heck symptoms documented in this encounterHolzer Medical Center – [place]04-20-2023 History of Present illness Narrative* Graeme Vazquez [...] he is a poor candidate for chemotherapy, [place] based or otherwise. Surgery would yield him [...] which included preparing to see the patient, oryi-rs-zuff patient care, completing clinical documentation, performing a medically appropriate examination, counseling and educating the patient/family/caregiver, ordering medications, tests, or p rocedures, communicating with other HCPs (not separately reported), independently interpreting results (not separately reported), and communicating results to the patient/family/caregiver. Graeme Vazquez MD, CPE Hematology and Oncology Services Provided at: [place], [place] documented in this encounterHolzer Medical Center – [facility]04-12-2023 History of Present illness Narrative* Margot Smith, [...] 23, 2023 3:07 PM documented in this encounterHolzer Medical Center – [place]03-28-2023 Miscellaneous Notes* Telephone Encounter - Margot So [...] Margot So RN documented in this encounterHolzer Medical Center – [facility]03-22-2023 Instructions* Patient Instructions* Greame Vazquez MD - 01/02/2023 3:18 PM EDT Start Keytruda q 3 weeks Labs same day. RTC 3 weeks with Patricia / Corazon Owens documented in this encounterHolzer Medical Center – [place]03-22-2023 History of Present illness Narrative* Graeme Vazquez [...] he is a poor candidate for chemotherapy, [place] based or otherwise. Surgery would yield him [...] which included preparing to see the patient, gobi-kc-scrk patient care, completing clinical documentation, obtaining and/or reviewing separately obtained history, counseling and educating the patient/family/caregiver, ordering medications, edin ts, or procedures, independently interpreting results (not separately reported), and communicating results to the patient/family/caregiver. Graeme Vazquez MD, CPE Hematology and Oncology Services Provided at: [place], [place] documented in this encounterHolzer Medical Center – [facility]03-22-2023 Nurse Note* Liberty Hayes - 01/02/2023 3:08 PM EDT Pt requested recent blood work faxed to Dr. Sneed. Faxed via [employer]. Liberty Hayes documented in this encounterHolzer Medical Center – [facility]03-20-2023 History of Present illness Narrative* Margot So [...] Margot So RN documented in this encounterHolzer Medical Center – [facility]03-08-2023 Miscellaneous Notes* Telephone Encounter - Olive Alarcon MD - 12/19/2022 8:54 AM EST Patient cancelled Nephrology appt for 12/20/22. Called patient, plan to get labs in the coming days to ensure continued improvement of Cr. documented in this encounterHolzer Medical Center – [place]03-06-2023 Miscellaneous Notes* Telephone Encounter - Lauren Mendez - 12/17/2022 11:21 AM EST Called patient and r/s to next week * Telephone Encounter - Lauren Mckeon RN - 12/17/2022 11:15 AM EST Pt's caris testing has not been resulted yet. Please call pt and reschedule to next week per Dr Moncada's request. Thanks Lauren Mckeon RN documented in this encounterHolzer Medical Center – [facility]02-22-2023 Hospital Discharge instructions Patient Education 12/05/2022 10:40:17 [...] cells. Follow these instructions at home: Take jmto-dri-dffvcsn and prescription medicines only as told by [...] is important. Where to find more information [employer]: www.cancer.org National Cancer [place] (NCI): www.cancer.gov Contact a health care provider [...] 10/02/2004 Document Revised: 09/12/2018 Document Reviewed: 09/03/2017 [employer] Patient Education 2020 [employer]. Follow Up Care 11/23/2022 15:08:18 With:JENNIFER FOUNTAIN, Jian Lee, URL Address: [facility] [address] , [place] [address]- When: Unknown [facility] 02-13-2023 Instructions* Patient Instructions* Graeme Vazquez MD - 11/26/2022 9:29 AM EST 1. Virtual visit 3 weeks after discussion with Dr. Bhatt and consideration of molecular studies. 2. AP Mol. documented in this encounter[facility] History of Present illness Narrative* Graeme Vazquez [...] CPE Hematology and Oncology Services Provided at: [place], [place] I spent a total of 40 minutes on the date of the service which included preparing to see the patient, [id number] patient care, completing clinical documentation, obtaining and/or reviewing separately obtained history, performing a medically appropriate examination, counseling and educating the pat ient/family/caregiver, ordering medications, tests, or procedures, independently interpreting results (not separately reported) and communicating results to the patient/family/caregiver. documented in this encounterHol[facility]-13-[facility]23 Nurse Note* Jami Hernandez MA - 11/26/2022 8:47 AM EST Patient was recently in the Hospital for [facility] ([facility]), he will havehis ureteral stent removed locally by Dr. Rodriguez. Jami Hernandez MA documented in this encounterHolzer [facility]02-07-2023 History of Present illness Narrative* Galen Bhatt [...] he would probably be best off recieving detention immunotherapy or other systemic therapy. We could [...] complete. Galen Bhatt MD documented in this encounterHolzer [facility] – [facility]11-30-2022 History of Present illness Narrative* Nicholas Saenz MD - 09/12/2022 2:45 PM EST [facility] PRE-OP NOTE [...] pending LABS, IMPACT documented in this encounterHolzer [facility] Center – [facility]11-30-2022 History and physical note * Fatimah Salcedo [...] fevers. Neuro: No history of TIA's, stroke, SPECIAL EVENTS ASSISTANT tumor, impaired sensorium, hemiplegia, paraplegia or quadraplegia. No neurological symptoms or problems. Respiratory: No history of current cough or dyspnea, or pneumonia in the past 6 weeks. No history of respiratory/pulmonary symptoms or problems. Cardiovascular: Negative for Recent MA, Angina, Arrhythmia, CAD, Chest Pain, PVD, Valvular [...] BLOCK ABNORMAL ECG ECHO 02/27/22 scanned into [facility] Assessment/Plan Hypertensive heart disease with heart failure (HCC) -BP elevated in office 171/70, 170/72, patient reports he has not taken any of his medications yet today -denies cardiac symptoms -EF 55% on echo 02/2022 scanned into [facility] -on hydralazine, losartan, isosorbide dinitrate, and [...] service. Requested most recent office note from sand slinger, Dr. Mason Castaneda. Planned Anesthetic: General Instructions Given to Patient: Instructions located in the after visit summary. Patient given verbal and written preop instructions and voices comprehension and compliance. SIGNATURE: Fatimah Salcedo PA-C PATIENT NAME: Juan Jose Austin DATE: September 12, 2022 TIME: 11:37 AM documented in this encounterHolzer Medical Center – [facility]11-30-2022 Instructions* Patient Instructions* Fatimah Salcedo PA-C - 09/12/2022 11:21 AM EST PATIENT PREOPERATIVE INSTRUCTIONS Galen Bhatt MD has scheduled you for your procedure at this surgery center: [facility] Scheduling Office: [phone] --[address] [place] [address]. Please read below carefully for your personalized [...] Procedures: - YOU MUST HAVE A RESPONSIBLE THERAPEUTIC STRATEGY LEAD TAKE YOU HOME. A BAGGING MACHINE OPERATOR OR OFFICE SYSTEM ANALYST CANNOT BE MADE A RESPONSIBLE THERAPEUTIC STRATEGY LEAD. - We recommend that a responsible person [...] call the Saturday before. Your surgeon s planner scheduler will tell you what time to call the office. - If you have not reached the departmental planner scheduler by 5 P.M., call [phone] after 5 P.M. the day before your surgery. Please be aware that emergency situations arise, which may delay or change your surgical time. If this happens, we will notify you as soon as possible and regret any inconvenience. 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 It required patient- provider interaction for the medical decision making as documented below. Chief complaint: Preop teaching [facility] PRE-OP NOTE Juan Jose Austin is a 81 year old male. Pre-op Date: March 26, 2022 Date of Procedure: 03/28/22 Does the patient have an active COVID-19 test in [facility]? N/A Procedure/Surgery: LASER CYSTOURETHROSCOPY W/ URETEROSCOPY [...] minutes Jimmy Tejada PA-C documented in this encounterHolzer Medical Center – [facility]05-31-2022 History of Present illness Narrative* Galen Bhatt MD - 03/13/2022 2:10 PM EDT VIRTUAL VISIT PROGRESS NOTE This is a virtual visit using iQVCloud video visit. It required patient-provider interaction for [...] right ureteral stent placement 10/26/[address] Bhtat. Final pathology revealed scant superficial fragments of [...] 1 tablet by mouth once daily. Fish Oil-Walnut-3 Fatty Acids (FISH OIL) 300-1,000 mg cap [...] the date of the service which included [id number] patient care, completing clinical documentation, obtaining and/or [...] complete. 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 documented in this encounterHolzer Medical Center – [facility]05-09-2022 History of Present illness Narrative* Corazon Maxwell [...] Corazon Maxwell PA-C documented in this encounterHolzer Medical Center – [facility]05-02-2022 History of Present illness Narrative* Soren Perea [...] which included preparing to see the patient, fuvt-eo-[id number] patient care, completing clinical documentation, obtaining and/or reviewing separately obtained history, performing a medically appropriate examination, counseling and educating the pat ient/family/caregiver, ordering medications, tests, or procedures, independently interpreting results (not separately reported) and communicating results to the patient/family/caregiver. documented in this encounterHolzer Medical Center – [facility]04-25-2022 History of Present illness Narrative* Soren Perea [...] which included preparing to see the patient, nmef-nf-zaux patient care, completing clinical documentation, obtaining and/or reviewing separately obtained history, performing a medically appropriate examination, counseling and educating the pat ient/family/caregiver, ordering medications, tests, or procedures, independently interpreting results (not separately reported) and communicating results to the patient/family/caregiver. documented in this encounterHolzer Medical Center – [facility]04-11-2022 History of Present illness Narrative* Belia Martínez RN - 01/22/2022 1:27 PM EDT . documented in this encounterHolzer Medical Center – [facility]04-04-2022 History of Present illness Narrative* Irma Ariza RN - 01/15/2022 1:38 PM EDT . documented in this encounterHolzer Medical Center – [facility]04-04-2022 History of Present illness Narrative* Corazon Maxwell [...] Corazon Maxwell PA-C documented in this encounterHolzer Medical Center – [facility]03-28-2022 History of Present illness Narrative* Soren Perea [...] Blood work today shows platelet count of [id number]. I will hold treatment today and continue with cycle 3 day 1 in a week. The plan is to repeat endoscopy evaluation after 3-6 cycles of chemotherapy based on tolerance. Soren Perea MD I spent a total of 20 minutes on the date of the service which included preparing to see the patient, [id number] patient care, completing clinical documentation, obtaining and/or reviewing separately obtained history, performing a medically appropriate examination, counseling and educating the pat ient/family/caregiver, ordering medications, tests, or procedures, independently interpreting results (not separately reported) and communicating results to the patient/family/caregiver. documented in this encounterHolzer Medical Center – [facility]09-25-2020 History of Present illness Narrative* Wang Linda [...] SIGNATURE: LU Cain PATIENT NAME: Juan Jose Ausitn DATE: July 08, 2020 TIME: 11:15 AM [facility] Future Appointments Appointment Date:12/18/2022 01:00:00 PM Scheduled Provider:Jian RODRIGUEZ MD Location:[facility] Appointment Type:URO Procedure 15 min [facility] Evaluation note* Diagnosis Malignant neoplasm of ureter, unspecified laterality (HCC)- Primary documented in this encounter [facility]* Diagnosis Malignant neoplasm of ureter, unspecified laterality (HCC)- Primary [facility] encounter [facility]* Diagnosis Malignant neoplasm of ureter, unspecified laterality (HCC)- Primary [facility] encounter [facility]* Diagnosis Malignant neoplasm of ureter, unspecified laterality (HCC)- Primary [facility] encounter [facility]* Diagnosis Malignant neoplasm of ureter, unspecified laterality (HCC)- Primary [facility] encounter [facility]* Diagnosis Malignant neoplasm of ureter, unspecified laterality (HCC)- Primary documented in this encounter [facility]* Diagnosis Malignant neoplasm of ureter, unspecified laterality (HCC)- Primary [facility] encounter [facility]* Diagnosis Malignant neoplasm of ureter, unspecified laterality (HCC)- Primary documented in this encounter [facility]* Diagnosis Urothelial carcinoma (HCC)- Primary Other malignant neoplasm without specification of site Urothelial carcinoma (HCC) Other malignant neoplasm without specification of site documented [facility] this encounter [facility]* Diagnosis Urothelial carcinoma (HCC)- Primary Other malignant neoplasm without specification of site Urothelial carcinoma (HCC) Other malignant neoplasm without specification of site documented [facility] this encounter [facility]* Diagnosis 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, unspecified laterality (HCC)- Primary Acute cystitis without hematuria Acute cystitis documented [facility] this encounter [facility]* Diagnosis Urothelial carcinoma (HCC)- Primary Other malignant neoplasm without specification of site Urothelial carcinoma (HCC) Other malignant neoplasm without specification of site documented [facility] this encounter [facility]* Diagnosis Pre-op evaluation- Primary Preoperative examination, unspecified Hypertensive heart disease with heart failure (HCC) 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 Gastro-esophageal reflux disease without esophagitis Esophageal reflux Ulcerative pancolitis (HCC) [place]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 Stage 3 chronic kidney disease, unspecified whether stage 3a or 3b CKD (HCC) 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, 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, except renal pelvis (HCC) Malignant neoplasm of kidney, except pelvis Malignant neoplasm of urinary bladder, unspecified site (HCC) documented [facility] this encounter [facility]* Diagnosis Urothelial carcinoma (HCC)- Primary Other malignant neoplasm without specification of site Malignant neoplasm of right kidney, except renal pelvis (HCC) Malignant neoplasm of kidney, except pelvis Malignant neoplasm of urinary bladder, unspecified site (HCC) documented in this encounter [facility]* Diagnosis Screening for genitourinary condition Screening for other and unspecified genitourinary condition Malignant neoplasm of right kidney, except renal pelvis (HCC) Malignant neoplasm of kidney, except pelvis Malignant neoplasm of urinary bladder, unspecified site (HCC) documented in this encounter [facility] note* Diagnosis 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, unspecified laterality (HCC)- Primary documented in this encounter [facility] noteNo [facility] Other Evaluation note* Diagnosis CELSO (acute kidney injury) (HCC)- Primary Acute kidney failure, unspecified documented in this encounter [facility] note* Diagnosis 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 Malignant neoplasm of other specified sites of bladder documented in this encounter [facility] note* Diagnosis Malignant neoplasm of overlapping [...] unspecified laterality (HCC) documented in this encounter [facility] note* Diagnosis 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 Malignant neoplasm of other specified sites of bladder Malignant neoplasm of right kidney, except renal pelvis (HCC) Malignant neoplasm of kidney, except pelvis Malignant neoplasm of ureter, unspecified laterality (HCC) documented in this encounter [facility] note* Diagnosis 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 Malignant neoplasm of other specified sites of bladder CKD (chronic kidney disease), stage V (HCC) Chronic kidney disease, Stage V Disorder of thyroid Unspecified disorder of thyroid Malaise and fatigue Other malaise and fatigue documented in this encounter [facility] note* Diagnosis 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 Malignant neoplasm of other specified sites of bladder CKD (chronic kidney disease), stage V (HCC) Chronic kidney disease, Stage V Abnormal weight loss Loss of weight Malignant neoplasm of urinary bladder, unspecified site (HCC) documented in this encounter [facility] note* Diagnosis Abnormal finding of diagnostic imaging- Primary Other nonspecific (abnormal) findings on radiological and other examinations of body structure 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 Malignant neoplasm of other specified sites of bladder Disorder of thyroid Unspecified disorder of thyroid documented in this encounter [facility] note* Diagnosis Elevated troponin- Primary Other abnormal blood chemistry documented in this encounter [facility]* Diagnosis 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 Malignant neoplasm of other specified sites of bladder CKD (chronic kidney disease), stage V (HCC) Chronic kidney disease, Stage V Malignant neoplasm of urinary bladder, unspecified site (HCC) Disorder of thyroid Unspecified disorder of thyroid Abnormal blood chemistry Other abnormal blood chemistry documented in this encounter [facility] note* Diagnosis Pre-op evaluation- Primary Preoperative examination, unspecified Hypertensive heart disease with heart failure (HCC) 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 Gastro-esophageal reflux disease without esophagitis Esophageal reflux Ulcerative pancolitis (HCC) [place]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 Stage 3 chronic kidney [...] Loss of weight documented in this encounter [facility] note* Diagnosis Pre-op evaluation- Primary Preoperative examination, unspecified Hypertensive heart disease with heart failure (HCC) 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 Gastro-esophageal reflux disease without esophagitis Esophageal reflux Ulcerative pancolitis (HCC) [place]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 Stage 3 chronic kidney disease, unspecified whether stage 3a or 3b CKD (HCC) 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, unspecified laterality (HCC) Malignant neoplasm of overlapping sites of bladder (HCC) Malignant neoplasm of other specified sites of bladder documented in this encounter [facility] note* Diagnosis Pre-op evaluation- Primary Preoperative examination, unspecified Hypertensive heart disease with heart failure (HCC) 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 Gastro-esophageal reflux disease without esophagitis Esophageal reflux Ulcerative pancolitis (HCC) [place]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 Stage 3 chronic kidney [...] abnormal blood chemistry documented in this encounter [facility] note* Diagnosis Pre-op evaluation- Primary Preoperative examination, unspecified Hypertensive heart disease with heart failure (HCC) 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 Gastro-esophageal reflux disease without esophagitis Esophageal reflux Ulcerative pancolitis (HCC) [place]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 Stage 3 chronic kidney disease, unspecified whether stage 3a or 3b CKD (HCC) 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, unspecified laterality (HCC) Malignant neoplasm of overlapping sites of bladder (HCC) Malignant neoplasm of other specified sites of bladder documented in this encounter [facility] note* Diagnosis Pre-op evaluation- Primary Preoperative examination, unspecified Hypertensive heart disease with heart failure (HCC) 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 Gastro-esophageal reflux disease without esophagitis Esophageal reflux Ulcerative pancolitis (HCC) [place]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 Stage 3 chronic kidney disease, unspecified whether stage 3a or 3b CKD (HCC) 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, unspecified laterality (HCC) Malignant neoplasm of overlapping sites of bladder (HCC) Malignant neoplasm of other specified sites of bladder documented in this encounter [facility] note* Diagnosis Pre-op evaluation- Primary Preoperative examination, unspecified Hypertensive heart disease with heart failure (HCC) 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 Gastro-esophageal reflux disease without esophagitis Esophageal reflux Ulcerative pancolitis (HCC) [place]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 Stage 3 chronic kidney [...] unspecified site (HCC) documented in this encounter [facility] note* Diagnosis Chest discomfort- Primary Other chest pain documented in this encounter [facility] note* Diagnosis Pre-op evaluation- Primary Preoperative examination, unspecified Hypertensive heart disease with heart failure (HCC) 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 Gastro-esophageal reflux disease without esophagitis Esophageal reflux Ulcerative pancolitis (HCC) [place]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 Stage 3 chronic kidney disease, unspecified whether stage 3a or 3b CKD (HCC) 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, unspecified laterality (HCC) Malignant neoplasm of overlapping sites of bladder (HCC) Malignant neoplasm of other specified sites of bladder documented in this encounter [facility] note* Diagnosis Congenital hypothyroidism Dyslipidemia Other and unspecified hyperlipidemia documented in this encounter [facility] note* Diagnosis Pre-op evaluation- Primary Preoperative examination, unspecified Hypertensive heart disease with heart failure (HCC) 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 Gastro-esophageal reflux disease without esophagitis Esophageal reflux Ulcerative pancolitis (HCC) [place]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 Stage 3 chronic kidney [...] of ureteric orifice documented in this encounter [facility]* Diagnosis Abscess Cellulitis and abscess of unspecified site [facility] Diagnosis Open wound of left chest wall, initial encounter- Primary 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 Infection of pacemaker pocket, initial encounter [facility] Diagnosis Open wound of left chest wall, initial encounter- Primary Pacemaker complications, initial encounter [facility]* Diagnosis Chest wall ulcer, 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, initial encounter Open wound of left chest wall, initial encounter documented [facility] Narrative - Reported* Type Description Date Medical History colitis Medical HistoryhyperlipidemiaMedical HistoryHTNMedical HistoryKIDNEY CANCER Surgical HistoryKIDNEY REMOVED [employer] Other History general Narrative - Reported* Type Description Date Medical History colitis Medical HistoryhyperlipidemiaMedical HistoryHTNMedical HistoryKIDNEY CANCER Surgical HistoryKIDNEY REMOVEDHospitalization HistoryNo Hospitalization history information [employer] Other Hospital course Narrative No data available for this section [facility] InstructionsNot on filedocumented in this encounter [facility]Not on filedocumented in this encounter [facility] SystemInstructionsNot on filedocumented in this encounter [facility] SystemInstructionsNot on filedocumented in this encounter [facility] No data available for this section [facility] Reason for referral (narrative)* Outpatient Procedure (Routine) - Pending ReviewSpecialtyDiagnoses / ProceduresReferred By Contact [facility] Diagnoses 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, unspecified laterality (HCC) Procedures ECG COMPLETE ECG ROUTINE ECG W/LEAST 12 LDS W/I&R Galen Bhatt MD [address] [place] [address] [place] [address] Referral IDStatusReasonStart DateExpiration DateVisits RequestedVisits [id number] Auto-Generated Referral [facility] (narrative)* Outpatient Procedure (Routine) - ClosedSpecialtyDiagnoses / ProceduresReferred By ContactReferred To Contact [facility] Diagnoses Pre-op evaluation Procedures ECG COMPLETE ECG ROUTINE ECG W/LEAST 12 LDS W/I&R Fatimah Salcedo PA-C [address] [address] [place] [address] Referral IDStatusReasonDwale DateExpiration DateVisits RequestedVisits [id number] Auto-Generated Referral [facility] Summary Purpose Family History No Family History [...] Directive(s)08/11/2019 11:16 AMAdvance Directive(s)08/11/2019 11:21 AMTypeDate 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 Adapted Physical Education Aide ExplanationAdvance Directive(s)03/14/2022 4:48 PMAdvance Directive(s)11/01/2021 2:32 PMAdvance [...] Directive(s)08/11/2019 11:16 AMAdvance Directive(s)08/11/2019 11:21 AMTypeDate 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 Adapted Physical Education Aide ExplanationAdvance Directive(s)08/11/2019 11:21 AMTypeDate 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 RepresentativeExplanationAdvance Directive(s)08/11/2019 11:21 AMNameRelationship Healthcare Agent RelationshipCommunicationSelect Specialty Hospital HaysChildPrimary Decision Maker * NameRelationshipHealthcare Agent RelationshipCommunScionHealth Primary Decision Maker* NameRelationshipHealthcare Agent [facility]Com[facility] Primary Decision [facility]* NameRelationshipHealthcare Agent RelationshipCom[facility] Primary Decision Maker* Date ActivatedDate InactivatedComments04/19/2025 [...] Drug: Use appropriate PPE. Antineoplastic Irritant. New Bag/Syringe/Xnkozk3501/15/2022 2:46 PM [id number] mg dexAMETHasone 10 mg/NS 50 mL (PYXIS) 10 mg ivpb 10 mg, INTRAVENOUS, ONCE, 1 dose, On Sat01/15/22 at 1330, Refrigerate. New Bag/Syringe/Sqdgnc7801/15/2022 1:41 PM EDT10 mg gemcitabine 1,950 mg in NaCl 0.9% 250 mL (GEMZAR) 1,950 mg (1,000 mg/m2 1.95 m2 Treatment Plan BSA from Recorded weight), INTRAVENOUS, Administer over 30 Minutes, ONCE, 1 dose, On Sat01/15/22 at 1330, Approx Total Volume: mL EXP:_01/16/2022@1930 Hazardous Chemotherapy Drug: Use appropriate PPE. Antineoplastic Irritant. New Bag/Syringe/Bvmeke4401/15/2022 2:09 PM EDT1,950 mg palonosetron 0.25 mg [...] Drug: Use appropriate PPE. Antineoplastic Irritant. New Bag/Syringe/Rpzakq8701/22/2022 1:33 PM EDT1,950 mg ondansetron (PF) 8 [...] Drug: Use appropriate PPE. Antineoplastic Irritant. New Bag/Syringe/Whovlc2302/12/2022 2:58 PM [id number] mg dexAMETHasone 10 mg/NS 50 mL (PYXIS) 10 mg ivpb (DECADRON) 10 mg, INTRAVENOUS, ONCE, 1 dose, On Sat02/12/22 at 1400, Refrigerate. New Bag/Syringe/Vtabog0002/12/2022 1:54 PM EDT10 mg gemcitabine 1,568 mg in NaCl 0.9% 250 mL (GEMZAR) 1,568 mg (800 mg/m2 1.96 m2 Treatment Plan BSA from Recorded weight), INTRAVENOUS, Administer over 30 Minutes, ONCE, 1 dose, On Sat02/12/22 at 1400, Approx Total Volume: mL EXP:_ 02/13/22 @ 1999 Hazardous Chemotherapy Drug: Use appropriate PPE. Antineoplastic Irritant. New Bag/Syringe/Wbueog8802/12/2022 2:24 PM EDT1,568 mg palonosetron 0.25 mg [...] 01/02/23@2200 Administer with 0.2 micron filter. New Bag/Syringe/Veuazt5701/02/2023 4:02 PM [id number] mgMedication OrderMAR Action Action DateDoseRateSite pembrolizumab 200 mg in NaCl 0.9% 66 mL (KEYTRUDA) 200 mg, INTRAVENOUS, Administer over 30 Minutes, ONCE, 1 dose, On Sat01/31/23 at 0930, EXP:L 01/31/23 1515 RT Administer with 0.2 micron filter. New Bag/Syringe/Bzgqel0801/31/2023 9:33 AM [id number] mgMedication OrderMAR Action Action DateDoseRateSite pembrolizumab 200 mg in NaCl 0.9% 66 mL (KEYTRUDA) 200 mg, INTRAVENOUS, Administer over 30 Minutes, ONCE, 1 dose, On Sat04/04/23 at 1130, Approx TotalVolume: 66 mL EXP: 1900 Administer with 0.2 micron filter. New Bag/Syringe/Fyhzre2204/04/2023 11:30 AM [id number] mgMedication OrderMAR Action Action DateDoseRateSite pembrolizumab 200 mg in NaCl 0.9% 66 mL (KEYTRUDA) 200 mg, INTRAVENOUS, Administer over 30 Minutes, ONCE, 1 dose, On Sat04/25/23 at 1400, Approx TotalVolume: 66 mL EXP: 04/25/23 2000 Administer with 0.2 micron filter. New Bag/Syringe/Lqnuum6004/25/2023 2:11 PM [id number] mgMedication OrderMAR Action Action DateDoseRateSite pembrolizumab 200 mg in NaCl 0.9% 66 mL (KEYTRUDA) 200 mg, INTRAVENOUS, Administer over 30 Minutes, ONCE, 1 dose, On Eusebia 05/16/23 at 1430, EXP: 0 RT Administer with 0.2 micron filter. New Bag/Syringe/Pcryja7205/16/2023 2:40 PM [id number] mgMedication OrderMAR Action Action DateDoseRateSite pembrolizumab 200 mg in NaCl 0.9% 66 mL (KEYTRUDA) 200 mg, INTRAVENOUS, Administer over 30 Minutes, ONCE, 1 dose, On Eusebia 06/06/23 at 1430, EXP: 06/06/23 2030 RT Administer with 0.2 micron filter. New Bag/Syringe/Uwopjm5206/06/2023 2:51 PM [id number] mgMedication OrderMAR Action Action DateDoseRateSite pembrolizumab 200 mg in NaCl 0.9% 66 mL (KEYTRUDA) 200 mg, INTRAVENOUS, Administer over 30 Minutes, ONCE, 1 dose, On Eusebia 06/27/23 at 1400, EXP: 214406/27/23 Administer with 0.2 micron filter. New Bag/Syringe/Wuwplt6306/27/2023 2:26 PM [id number] mgMedication OrderMAR Action Action DateDoseRateSite pembrolizumab 200 mg in NaCl 0.9% 66 mL (KEYTRUDA) 200 mg, INTRAVENOUS, Administer over 30 Minutes, ONCE, 1 dose, On Eusebia 07/18/23 at 1400, EXP: 1400 07/19/23 RF Administer with 0.2 micron filter. New Bag/Syringe/Httpvf3807/18/2023 2:18 PM [id number] mgMedication OrderMAR Action Action DateDoseRateSite pembrolizumab 200 mg in NaCl 0.9% 66 mL (KEYTRUDA) 200 mg, INTRAVENOUS, Administer over 30 Minutes, ONCE, 1 dose, On Eusebia 09/19/23 at 1500, EXP: 2114 RTAdminister with 0.2 micron filter. New Bag/Syringe/Tljlvj4109/19/2023 3:19 PM [id number] mg Reason for Referral SpecialtyDiagnoses / ProceduresReferred By ContactReferred To ContactCT IMAGING Diagnoses Malignant neoplasm of overlapping sites of bladder (HCC) Procedures CT CHEST W IVCON DIAGNOSTIC COMPUTED TOMOGRAPHY THORAX W/CONTRAST Graeme Vazquez MD [address] [place] [address] [place] [address] Ct Imaging Referral IDStatusReasonStart DateExpiration DateVisits RequestedVisits [id number] Auto-Generated Referral [id number] / ProceduresReferred By ContactReferred To ContactCT IMAGING Diagnoses Malignant neoplasm of overlapping sites of bladder (HCC) Procedures CT ABD/PEL W IVCON CT ABD & PELVIS W/CONTRAST Graeme Vazquez MD [address] [place] [address] Ct Imaging Referral IDStatusReasonStart DateExpiration DateVisits RequestedVisits [id number] Auto-Generated Referral Additional Source Comments (unrecognized sect ion and content) No Status Records FoundNo Status Records FoundNo Status Records FoundNo Status Records FoundNo Status Records FoundNo Status Records FoundNo Status Records FoundNo Status Records FoundNo Status Records FoundNo Status Records Found INFORMATION SOURCE (unrecogn ized section and content) DATE CREATED AUTHOR 04/30/2018 [facility] DATE CREATED AUTHOR AUTHOR'S ORGANIZ ATION 03/06/2019 [facility] DATE CREATED AUTHOR AUTHOR'S ORGANIZ ATION 03/24/2023 [facility] DATE CREATED AUTHOR AUTHOR'S ORGANIZ ATION 04/27/2023 [facility] DATE CREATED AUTHOR AUTHOR'S ORGANIZ ATION 01/22/2025 [facility] DATE CREATED AUTHOR AUTHOR'S ORGANIZ ATION 04/08/2025 [facility] DATE CREATED AUTHOR AUTHOR'S ORGANIZ ATION 04/26/2025 [facility] DATE CREATED AUTHOR AUTHOR'S ORGANIZ ATION 05/09/2025 [facility] DATE CREATED AUTHOR AUTHOR'S ORGANIZ ATION 05/18/2025 [facility] DATE CREATED AUTHOR AUTHOR'S ORGANIZ ATION 07/21/2025 [facility] Source Comments (unrecognize d section and content) In the event this informatio n is protected by the Federal Confidentiality of Alcohol and Drug Abuse Patient Records regulations: The Federal rules restrict any use of the information to criminally investigate or prosecute any alcohol or drug abuse patient.[facility] [place]In the event this information is protected by the Federal Confidentiality of Alcohol and Drug Abuse Patient Records regulations: The Federal rules restrict any use of the information to criminally investigate or prosecute any alcohol or drug abuse patient.[facility] JacksonIn the event this information is protected by the Federal Confidentiality of Alcohol and Drug Abuse Patient Records regulations: The Federal rules restrict any use of the information to criminally investigate or prosecute any alcohol or drug abuse patient.[facility] JacksonIn the event this information is protected by the Federal Confidentiality of Alcohol and Drug Abuse Patient Records regulations: The Federal rules restrict any use of the information to criminally investigate or prosecute any alcohol or drug abuse patient.[facility] JacksonIn the event this information is protected by the Federal Confidentiality of Alcohol and Drug Abuse Patient Records regulations: The Federal rules restrict any use of the information to criminally investigate or prosecute any alcohol or drug abuse patient.[facility] JacksonIn the event this information is protected by the Federal Confidentiality of Alcohol and Drug Abuse Patient Records regulations: The Federal rules restrict any use of the information to criminally investigate or prosecute any alcohol or drug abuse patient.[facility] JacksonIn the event this information is protected by the Federal Confidentiality of Alcohol and Drug Abuse Patient Records regulations: The Federal rules restrict any use of the information to criminally investigate or prosecute any alcohol or drug abuse patient.[facility] JacksonIn the event this information is protected by the Federal Confidentiality of Alcohol and Drug Abuse Patient Records regulations: The Federal rules restrict any use of the information to criminally investigate or prosecute any alcohol or drug abuse patient.[facility] JacksonIn the event this information is protected by the Federal Confidentiality of Alcohol and Drug Abuse Patient Records regulations: The Federal rules restrict any use of the information to criminally investigate or prosecute any alcohol or drug abuse patient.[facility] JacksonIn the event this information is protected by the Federal Confidentiality of Alcohol and Drug Abuse Patient Records regulations: The Federal rules restrict any use of the information to criminally investigate or prosecute any alcohol or drug abuse patient.[facility] JacksonIn the event this information is protected by the Federal Confidentiality of Alcohol and Drug Abuse Patient Records regulations: The Federal rules restrict any use of the information to criminally investigate or prosecute any alcohol or drug abuse patient.[facility] JacksonIn the event this information is protected by the Federal Confidentiality of Alcohol and Drug Abuse Patient Records regulations: The Federal rules restrict any use of the information to criminally investigate or prosecute any alcohol or drug abuse patient.[facility] JacksonIn the event this information is protected by the Federal Confidentiality of Alcohol and Drug Abuse Patient Records regulations: The Federal rules restrict any use of the information to criminally investigate or prosecute any alcohol or drug abuse patient.[facility] JacksonIn the event this information is protected by the Federal Confidentiality of Alcohol and Drug Abuse Patient Records regulations: The Federal rules restrict any use of the information to criminally investigate or prosecute any alcohol or drug abuse patient.[facility] JacksonIn the event this information is protected by the Federal Confidentiality of Alcohol and Drug Abuse Patient Records regulations: The Federal rules restrict any use of the information to criminally investigate or prosecute any alcohol or drug abuse patient.[facility] JacksonIn the event this information is protected by the Federal Confidentiality of Alcohol and Drug Abuse Patient Records regulations: The Federal rules restrict any use of the information to criminally investigate or prosecute any alcohol or drug abuse patient.[facility] JacksonIn the event this information is protected by the Federal Confidentiality of Alcohol and Drug Abuse Patient Records regulations: The Federal rules restrict any use of the information to criminally investigate or prosecute any alcohol or drug abuse patient.[facility] JacksonIn the event this information is protected by the Federal Confidentiality of Alcohol and Drug Abuse Patient Records regulations: The Federal rules restrict any use of the information to criminally investigate or prosecute any alcohol or drug abuse patient.[facility] JacksonIn the event this information is protected by the Federal Confidentiality of Alcohol and Drug Abuse Patient Records regulations: The Federal rules restrict any use of the information to criminally investigate or prosecute any alcohol or drug abuse patient.[facility] JacksonIn the event this information is protected by the Federal Confidentiality of Alcohol and Drug Abuse Patient Records regulations: The Federal rules restrict any use of the information to criminally investigate or prosecute any alcohol or drug abuse patient.[facility] JacksonIn the event this information is protected by the Federal Confidentiality of Alcohol and Drug Abuse Patient Records regulations: The Federal rules restrict any use of the information to criminally investigate or prosecute any alcohol or drug abuse patient.[facility] JacksonIn the event this information is protected by the Federal Confidentiality of Alcohol and Drug Abuse Patient Records regulations: The Federal rules restrict any use of the information to criminally investigate or prosecute any alcohol or drug abuse patient.[facility] JacksonIn the event this information is protected by the Federal Confidentiality of Alcohol and Drug Abuse Patient Records regulations: The Federal rules restrict any use of the information to criminally investigate or prosecute any alcohol or drug abuse patient.[facility] JacksonIn the event this information is protected by the Federal Confidentiality of Alcohol and Drug Abuse Patient Records regulations: The Federal rules restrict any use of the information to criminally investigate or prosecute any alcohol or drug abuse patient.[facility] JacksonIn the event this information is protected by the Federal Confidentiality of Alcohol and Drug Abuse Patient Records regulations: The Federal rules restrict any use of the information to criminally investigate or prosecute any alcohol or drug abuse patient.[facility] JacksonIn the event this information is protected by the Federal Confidentiality of Alcohol and Drug Abuse Patient Records regulations: The Federal rules restrict any use of the information to criminally investigate or prosecute any alcohol or drug abuse patient.[facility] JacksonIn the event this information is protected by the Federal Confidentiality of Alcohol and Drug Abuse Patient Records regulations: The Federal rules restrict any use of the information to criminally investigate or prosecute any alcohol or drug abuse patient.[facility] JacksonIn the event this information is protected by the Federal Confidentiality of Alcohol and Drug Abuse Patient Records regulations: The Federal rules restrict any use of the information to criminally investigate or prosecute any alcohol or drug abuse patient.[facility] JacksonIn the event this information is protected by the Federal Confidentiality of Alcohol and Drug Abuse Patient Records regulations: The Federal rules restrict any use of the information to criminally investigate or prosecute any alcohol or drug abuse patient.[facility] JacksonIn the event this information is protected by the Federal Confidentiality of Alcohol and Drug Abuse Patient Records regulations: The Federal rules restrict any use of the information to criminally investigate or prosecute any alcohol or drug abuse patient.[facility] JacksonIn the event this information is protected by the Federal Confidentiality of Alcohol and Drug Abuse Patient Records regulations: The Federal rules restrict any use of the information to criminally investigate or prosecute any alcohol or drug abuse patient.[facility] JacksonIn the event this information is protected by the Federal Confidentiality of Alcohol and Drug Abuse Patient Records regulations: The Federal rules restrict any use of the information to criminally investigate or prosecute any alcohol or drug abuse patient.[facility] JacksonIn the event this information is protected by the Federal Confidentiality of Alcohol and Drug Abuse Patient Records regulations: The Federal rules restrict any use of the information to criminally investigate or prosecute any alcohol or drug abuse patient.[facility] JacksonIn the event this information is protected by the Federal Confidentiality of Alcohol and Drug Abuse Patient Records regulations: The Federal rules restrict any use of the information to criminally investigate or prosecute any alcohol or drug abuse patient.[facility] JacksonIn the event this information is protected by the Federal Confidentiality of Alcohol and Drug Abuse Patient Records regulations: The Federal rules restrict any use of the information to criminally investigate or prosecute any alcohol or drug abuse patient.[facility] JacksonIn the event this information is protected by the Federal Confidentiality of Alcohol and Drug Abuse Patient Records regulations: The Federal rules restrict any use of the information to criminally investigate or prosecute any alcohol or drug abuse patient.[facility] JacksonIn the event this information is protected by the Federal Confidentiality of Alcohol and Drug Abuse Patient Records regulations: The Federal rules restrict any use of the information to criminally investigate or prosecute any alcohol or drug abuse patient.[facility] JacksonIn the event this information is protected by the Federal Confidentiality of Alcohol and Drug Abuse Patient Records regulations: The Federal rules restrict any use of the information to criminally investigate or prosecute any alcohol or drug abuse patient.[facility] JacksonIn the event this information is protected by the Federal Confidentiality of Alcohol and Drug Abuse Patient Records regulations: The Federal rules restrict any use of the information to criminally investigate or prosecute any alcohol or drug abuse patient.[facility] JacksonIn the event this information is protected by the Federal Confidentiality of Alcohol and Drug Abuse Patient Records regulations: The Federal rules restrict any use of the information to criminally investigate or prosecute any alcohol or drug abuse patient.[facility] JacksonIn the event this information is protected by the Federal Confidentiality of Alcohol and Drug Abuse Patient Records regulations: The Federal rules restrict any use of the information to criminally investigate or prosecute any alcohol or drug abuse patient.[facility] JacksonIn the event this information is protected by the Federal Confidentiality of Alcohol and Drug Abuse Patient Records regulations: The Federal rules restrict any use of the information to criminally investigate or prosecute any alcohol or drug abuse patient.[facility] JacksonIn the event this information is protected by the Federal Confidentiality of Alcohol and Drug Abuse Patient Records regulations: The Federal rules restrict any use of the information to criminally investigate or prosecute any alcohol or drug abuse patient.[facility] JacksonIn the event this information is protected by the Federal Confidentiality of Alcohol and Drug Abuse Patient Records regulations: The Federal rules restrict any use of the information to criminally investigate or prosecute any alcohol or drug abuse patient.[facility] JacksonIn the event this information is protected by the Federal Confidentiality of Alcohol and Drug Abuse Patient Records regulations: The Federal rules restrict any use of the information to criminally investigate or prosecute any alcohol or drug abuse patient.[facility] JacksonIn the event this information is protected by the Federal Confidentiality of Alcohol and Drug Abuse Patient Records regulations: The Federal rules restrict any use of the information to criminally investigate or prosecute any alcohol or drug abuse patient.[facility] JacksonIn the event this information is protected by the Federal Confidentiality of Alcohol and Drug Abuse Patient Records regulations: The Federal rules restrict any use of the information to criminally investigate or prosecute any alcohol or drug abuse patient.[facility] JacksonIn the event this information is protected by the Federal Confidentiality of Alcohol and Drug Abuse Patient Records regulations: The Federal rules restrict any use of the information to criminally investigate or prosecute any alcohol or drug abuse patient.[facility] JacksonIn the event this information is protected by the Federal Confidentiality of Alcohol and Drug Abuse Patient Records regulations: The Federal rules restrict any use of the information to criminally investigate or prosecute any alcohol or drug abuse patient.[facility] JacksonIn the event this information is protected by the Federal Confidentiality of Alcohol and Drug Abuse Patient Records regulations: The Federal rules restrict any use of the information to criminally investigate or prosecute any alcohol or drug abuse patient.[facility] JacksonIn the event this information is protected by the Federal Confidentiality of Alcohol and Drug Abuse Patient Records regulations: The Federal rules restrict any use of the information to criminally investigate or prosecute any alcohol or drug abuse patient.[facility] JacksonIn the event this information is protected by the Federal Confidentiality of Alcohol and Drug Abuse Patient Records regulations: The Federal rules restrict any use of the information to criminally investigate or prosecute any alcohol or drug abuse patient.[facility] JacksonIn the event this information is protected by the Federal Confidentiality of Alcohol and Drug Abuse Patient Records regulations: The Federal rules restrict any use of the information to criminally investigate or prosecute any alcohol or drug abuse patient.[facility] JacksonIn the event this information is protected by the Federal Confidentiality of Alcohol and Drug Abuse Patient Records regulations: The Federal rules restrict any use of the information to criminally investigate or prosecute any alcohol or drug abuse patient.[facility] JacksonIn the event this information is protected by the Federal Confidentiality of Alcohol and Drug Abuse Patient Records regulations: The Federal rules restrict any use of the information to criminally investigate or prosecute any alcohol or drug abuse patient.[facility] JacksonIn the event this information is protected by the Federal Confidentiality of Alcohol and Drug Abuse Patient Records regulations: The Federal rules restrict any use of the information to criminally investigate or prosecute any alcohol or drug abuse patient.[facility] JacksonIn the event this information is protected by the Federal Confidentiality of Alcohol and Drug Abuse Patient Records regulations: The Federal rules restrict any use of the information to criminally investigate or prosecute any alcohol or drug abuse patient.[facility] JacksonIn the event this information is protected by the Federal Confidentiality of Alcohol and Drug Abuse Patient Records regulations: The Federal rules restrict any use of the information to criminally investigate or prosecute any alcohol or drug abuse patient.[facility] JacksonIn the event this information is protected by the Federal Confidentiality of Alcohol and Drug Abuse Patient Records regulations: The Federal rules restrict any use of the information to criminally investigate or prosecute any alcohol or drug abuse patient.[facility] JacksonIn the event this information is protected by the Federal Confidentiality of Alcohol and Drug Abuse Patient Records regulations: The Federal rules restrict any use of the information to criminally investigate or prosecute any alcohol or drug abuse patient.[facility] JacksonIn the event this information is protected by the Federal Confidentiality of Alcohol and Drug Abuse Patient Records regulations: The Federal rules restrict any use of the information to criminally investigate or prosecute any alcohol or drug abuse patient.[facility] JacksonIn the event this information is protected by the Federal Confidentiality of Alcohol and Drug Abuse Patient Records regulations: The Federal rules restrict any use of the information to criminally investigate or prosecute any alcohol or drug abuse patient.[facility] JacksonIn the event this information is protected by the Federal Confidentiality of Alcohol and Drug Abuse Patient Records regulations: The Federal rules restrict any use of the information to criminally investigate or prosecute any alcohol or drug abuse patient.[facility] JacksonIn the event this information is protected by the Federal Confidentiality of Alcohol and Drug Abuse Patient Records regulations: The Federal rules restrict any use of the information to criminally investigate or prosecute any alcohol or drug abuse patient.[facility] JacksonIn the event this information is protected by the Federal Confidentiality of Alcohol and Drug Abuse Patient Records regulations: The Federal rules restrict any use of the information to criminally investigate or prosecute any alcohol or drug abuse patient.[facility] JacksonIn the event this information is protected by the Federal Confidentiality of Alcohol and Drug Abuse Patient Records regulations: The Federal rules restrict any use of the information to criminally investigate or prosecute any alcohol or drug abuse patient.[facility] Reason for Visit (unrecogniz ed section and content) ReasonCommentsmalignant neoplasm of ureterfollow up treatmentReasonComments ureter cancerSpecialtyDiagnoses / ProceduresReferred By ContactReferred To Contact Diagnoses Malignant neoplasm of ureter (HCC) Soren Perea MD [address] [place] [address] [place] [address] Evens Treat Winsome [address] [place] [address] Referral IDStatusReasonStart DateExpiration DateVisits RequestedVisits [id number]/1/20225/2/[id number] cancer follow up treatmentReasonCommentsmalignant neoplasm of ureterReasonCommentsPre- Op TeachingReasonCommentsFollow UpReasonCommentsPre-Op VisitReasonCommentsPre-Op ExamReasonCommentsFollow UpReasonCommentsUreteral cancerTransition of care ReasonCommentsCare CoordinationReschedule appointmentReasonCommentsPatient UpdateReasonCommentsNon-Chemotherapy TreatmentPembrolizumabSpecialtyDiagnoses / ProceduresReferred By ContactReferred To Contact Diagnoses Malignant neoplasm of ureter, 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, 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) Graeme Vazquez MD [address] [place] [address] [place] [address] Evenslizbeth Fam [address] [place] [address] Referral IDStatusReasonStart DateExpiration DateVisits RequestedVisits [id number]/13/20236/[id number] RnwpybxpgjwcZ3M0 Post Treatment CallReasonCommentsMalignant neoplasm of ureter New start treatmentReasonCommentsBladder CancerReasonCommentsReturn Call Request Call ptReasonCommentsBladder CancerReasonCommentsRadiology CTReasonOnset Date CommentsRefill Mvepgdq5405/31/2023ReasonCommentsBladder CancerTreatment visit ReasonCommentsPost-Op VisitReasonCommentsCare CoordinationSore ThroatReason CommentsCare CoordinationFollow Up AppointmentSpecialtyDiagnoses / Procedures Referred By ContactReferred To Contact Diagnoses Malignant neoplasm of ureter, 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 Right sided sharp pains worsening with deep breath.ReasonCommentsCare CoordinationDiarrhea >1 monthReasonCommentsAppointment CancelledDiarrheaReason CommentsRadiology CTSpecialtyDiagnoses / ProceduresReferred By ContactReferred To ContactCT IMAGING Diagnoses Malignant neoplasm of urinary bladder, unspecified site (HCC) Procedures CT ABD/PEL W IVCON CT ABD & PELVIS W/CONTRAST Patricia Conteh, INSURANCE VERIFICATION REP.[address] [place] [address] [place] [address] Referral IDStatusReasonStart DateExpiration DateVisits RequestedVisits [id number] Auto-Generated Referral [id number] / ProceduresReferred By ContactReferred To ContactCT IMAGING Diagnoses Malignant neoplasm of overlapping sites of bladder (HCC) Procedures CT CHEST W IVCON DIAGNOSTIC COMPUTED TOMOGRAPHY THORAX W/CONTRAST Graeme Vazquez MD [address] [place] [address] [address] [place] [id number] Ct Imaging [facility]95 Referral IDStatusReasonStart DateExpiration DateVisits RequestedVisits [id number] Auto-Generated Referral /[id number] / ProceduresReferred By ContactReferred To ContactCT IMAGING Diagnoses 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), 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, unspecified site (HCC) Disorder of thyroid Abnormal blood chemistry Procedures CT ABD/PEL W IVCON CT ABD & PELVIS W/CONTRAST Graeme Vazquez MD [address] [place] [address] [address] [place] [id number] Ct [facility] [place] [address] Referral IDStatusReasonStart DateExpiration DateVisits RequestedVisits [id number] Auto-Generated Referral /[id number] IDStatusReasonStart DateExpiration DateVisits RequestedVisits [id number] Auto-Generated Referral /[id number] CTSpecialtyDiagnoses / Procedures Referred By ContactReferred To ContactCT IMAGING Diagnoses Malignant neoplasm of overlapping sites of bladder (HCC) Procedures CT CHEST WO IVCON DIAGNOSTIC COMPUTED TOMOGRAPHY THORAX W/O CNTRST Patricia Conteh, INSURANCE VERIFICATION REP.FICTION AND NONFICTION WRITER PROSE [address] [facility] [address] [place] [id number] Ct Imaging [facility]95 Referral IDStatusReasonStart DateExpiration DateVisits RequestedVisits [id number] Auto-Generated Referral /[id number]xbcg feels like its moving . Referral IDStatusReasonStart DateExpiration DateVisits RequestedVisits [id number] Auto-Generated Referral /[id number] CheckSpecialtyDiagnoses / Procedures Referred By ContactReferred To ContactWound Care Diagnoses Surgical wound present Open wound of left chest wall, initial encounter Mahogany Fragoso, INSURANCE VERIFICATION [facility] [address] [place] [address] Phone: tel: fax: [facility] [address] [place] [phone] Phone: tel: Referral IDStatusReasonStart DateExpiration DateVisits RequestedVisits [id number] Review Specialty Services Required 1ReasonOnset DateCommentsExtraction site05/05/2025ReasonOnset LcowEzbqflbqSmkoiwjv00/23/5419BxmlqoKxkvxbxiStmmnc-odal-fzjxi-scheduled w/ptstatus post dual-chamber leadless pacemakerChest infection due to the pacemakerAtrial FibrillationShortness of BreathReasonCommentsWound Check SpecialtyDiagnoses / ProceduresReferred By ContactReferred To ContactWound Care Diagnoses Surgical wound present Open wound of left chest wall, initial encounter Mahogany Fragoso, INSURANCE VERIFICATION REPFICTION AND NONFICTION WRITER PROSE [address] [place] [address] Phone: tel: fax: [facility] [address] [place] [phone] Phone: tel: Referral IDStatusReasonStart DateExpiration DateVisits RequestedVisits [id number] Review Specialty Services Required Care Teams (unrecognized sec tion and content) Team MemberRelationshipSpecialtyStart DateEnd Date Sergio Sneed MD [address] [place] [address] PCP - GeneralFamily Lflmigzb53/17/19 Jian Rodriguez MD [address] [place] [address] PhysicianUrology1 Lauren Mckeon, RN [address] [facility] [place] [address] Specialty Care CoordinatorHematology/Oncology11/21/21 Soren Perea MD [address] [facility] [place] [address] PhysicianHematology/Oncology11/21/21 Corazon Maxwell, PAEnocC [address] [facility] [place] [address] Physician AssistantHematology/Oncology11/21/21Te MemberRelationshipSpecialty Start DateEnd Date Sergio Sneed MD [address] [place] [address] PCP - GeneralFamily Lrqyyqfd23/17/19 Jian Rodriguez MD [address] [place] [address] PhysicianUrology1 Lauren Mckeon, RN [address] [facility] [place] [address] Specialty Care CoordinatorHematology/Oncology11/21/21 Soren Perea MD [address] [facility] [address] [place], [facility] PhysicianHematology/Oncology2 Corazon Maxwell, PAEnocC [address] [facility] [place] [address] Physician AssistantHematology/Oncology11/21/21Te MemberRelationshipSpecialty Start DateEnd Date Sergio Sneed MD [address] [place] [address] PCP - GeneralFamily Jwymducy39/17/19 Jian Rodriguez MD [address] [place] [address] PhysicianUrology1/ Lauren Mckeon, RN [address] [facility] [place] [address] Specialty Care CoordinatorHematology/Oncology11/21/21 Soren Perea MD [address] [facility] [address] [place], [facility]70 PhysicianHematology/Oncology11/21/21 Corazon Maxwell, PAEnocC [address] [facility] [place] [address] Physician AssistantHematology/Oncology11/21/21Te MemberRelationshipSpecialty Start DateEnd Date Sergio Sneed MD [address] [place] [id number] PCP - GeneralFamily Vklmgvku48/17/19 Jian Rodriguez MD [address] [place] [address] PhysicianUrology1 Lauren Mckeon, RN [address] [facility] [place] [address] Specialty Care CoordinatorHematology/Oncology11/21/21 Soren Perea MD [address] [facility] [address] [place], [facility] PhysicianHematology/Oncology11/21/21 Corazon Maxwell, PA-C [address] [facility] [place] [address] Physician AssistantHematology/Oncology11/21/21Te MemberRelationshipSpecialty Start DateEnd Date Sergio Sneed MD [address] [place] [address] PCP - GeneralFamily Cheqgmdh62/17/19 Jian Rodriguez MD [address] [place] [address] PhysicianUrology1 Lauren Mckeon, RN [address] [facility] [place] [address] Specialty Care CoordinatorHematology/Oncology2 Soren Perea MD [address] [facility] [place] [address] PhysicianHematology/Oncology2 Corazon Maxwell PA-C [address] [facility] [place] [address] Physician AssistantHematology/Oncology11/21/21Te MemberRelationshipSpecialty Start DateEnd Date Sergio Sneed MD [address] [place] [address] PCP - GeneralFamily Hlmfymqp58/17/19 Jian Rodriguez MD [address] [place] [address] PhysicianUrology1 Lauren Mckeon, RN [address] [facility] [place] [address] Specialty Care CoordinatorHematology/Oncology11/21/21 Soren Perea MD [address] [facility] [place] [address] PhysicianHematology/Oncology2 Corazon Maxwell PA-C [address] [facility] [place] [address] Physician AssistantHematology/Oncology11/21/21Te MemberRelationshipSpecialty Start DateEnd Date Sergio Sneed MD [address] [place] [address] PCP - GeneralFamily Ahgdqzau88/17/19 Jian Rodriguez MD [address] [place] [address] PhysicianUrology1/ Lauren Mckeon RN [address] [facility] [place] [address] Specialty Care CoordinatorHematology/Oncology2 Soren Perea MD [address] [facility] [place] [address] PhysicianHematology/Oncology2 Corazon Maxwell, CHRISTINA [address] [facility] [place] [address] Physician AssistantHematology/Oncology2Te MemberRelationshipSpecialty Start DateEnd Date Sergio Sneed MD [address] [place] [address] PCP - GeneralFamily Qwulisfw08/17/19 Jian Rodriguez MD [address] [place] [address] PhysicianUrology1 Lauren Mckeon RN [address] [facility] [place] [address] Specialty Care CoordinatorHematology/Oncology11/21/21 Soren Perea MD [address] [facility] [address] [place], [facility] PhysicianHematology/Oncology2 Corazon Maxwell PA-C [address] [facility] [place] [address] Physician AssistantHematology/Oncology11/21/21Te MemberRelationshipSpecialty Start DateEnd Date Sergio Sneed MD [address] [place] [address] PCP - GeneralFamily Xfhjdvlo26/17/19 Jian Rodriguez MD [address] [place] [address] PhysicianUrology1//20 Lauren Mckeon, RN [address] [facility] [place] [address] Specialty Care CoordinatorHematology/Oncology11/21/21 Soren Perea MD [address] [facility] [place] [address] PhysicianHematology/Oncology11/21/21 Corazon Maxwell PA-C [address] [facility] [address] [place], [facility] Physician AssistantHematology/Oncology11/21/21Te MemberRelationshipSpecialty Start DateEnd Date Sergio Sneed MD [address] [place] [address] PCP - GeneralFamily Gzhevdxv09/17/19 Jian Rodriguez MD [address] [place] [address] PhysicianUrolog10/28/19 Lauren Mckeon, RN [address] [facility] [place] [address] Specialty Care CoordinatorHematology/Oncology11/21/21 Soren Perea MD [address] [facility] [address], [facility] PhysicianHematology/Oncology11/21/21 Corazon Maxwell PA-C [address] [facility] [address] [place], [facility] Physician AssistantHematology/Oncology11/21/21Te MemberRelationshipSpecialty Start DateEnd Date Sergio Sneed MD [address] [place] [address] PCP - GeneralFamily Ofhssdxp43/17/19 Jian Rodriguez MD [address] [place] [address] PhysicianUrology1 Lauren Mckeon, RN [address] [facility] [place] [address] Specialty Care CoordinatorHematology/Oncology11/21/21 Soren Perea MD [address] [facility] [place] [address] PhysicianHematology/Oncology11/21/21 Corazon Maxwell, PA-C [address] [facility] [place] [address] Physician AssistantHematology/Oncology11/21/21Te MemberRelationshipSpecialty Start DateEnd Date Sergio Sneed MD [address] [place] [address] PCP - GeneralFamily Lxxuspew49/17/19 Jian Rodriguez MD [address] [place] [address] PhysicianUrology1 Soren Perea MD [address] [facility] [address] [place], [facility] PhysicianHematology/Oncology11/21/21 Keven Castaneda MD [address] [facility] [address] [place] [address] Vvdpagbxhw19/30/22Te MemberRelationshipSpecialtyStart DateEnd Date Sergio Sneed MD [address] [place] [address] PCP - GeneralFamily Bxhjiwej61/17/19 Jian Rodriguez MD [address] [place] [address] PhysicianUrolog10/28/19 Soren Perea MD [address] [facility] [place] [address] PhysicianHematology/Oncology11/21/21 Keven Castaneda MD [address] [facility] [address] [place] [address] Ycxidankcj96/30/22Te MemberRelationshipSpecialtyStart DateEnd Date Sergio Sneed MD [address] [place] [address] PCP - GeneralFamily Uambvokb16/17/19 Jian Rodriguez MD [address] [place] [address] PhysicianUrology1 Soren Perea MD [address] [facility] [place] [address] PhysicianHematology/Oncology2 Keven Castaneda MD [address] [facility] [address] [place] [id number] Kzknmcitki90/30/22Te MemberRelationshipSpecialtyStart DateEnd Date Sergio Sneed MD [address] [place] [address] PCP - GeneralFamily Pdxyjgna71/17/19 Jian Rodrgiuez MD [address] [place] [address] PhysicianUrology1 Soren Perea MD [address] [facility] [place] [address] PhysicianHematology/Oncology2 Keven Castaneda MD [address] [facility] [address] [place] [address] Akbsuogkhq24/30/22Te MemberRelationshipSpecialtyStart DateEnd Date Sergio Sneed MD [address] [place] [address] PCP - GeneralFamily Giidjdsc57/17/19 Jian Rodriguez MD [address] [place] [address] PhysicianUrolog10/28/19 Soren Perea MD [address] [facility] [place] [address] PhysicianHematology/Oncology11/21/21 Keven Castaneda MD [address] [place] [address] Sooghqqrpa04/30/22Team MemberRelationshipSpecialtyStart DateEnd Date Sergio Sneed MD [address] [place] [id number] PCP - GeneralFamily Iiahkmun16/17/19 Jian Rodriguez MD [address] [place] [address] PhysicianUrolog10/28/19 Soren Perea MD [address] [facility] [address] [place], [facility] PhysicianHematology/Oncology11/21/21 Keven Castaneda MD [address] [place] [address] Vtsvnwdemd95/30/22Team MemberRelationshipSpecialtyStart DateEnd Date Sergio Sneed MD PCP - GeneralFamily Zchahegn72/17/19 Jian Rodriguez MD [address] [place] [address] PhysicianUrolog10/28/19 Keven Castaneda MD [address] [place] [address] Znlibcddxu83/30/22 Graeme Vazquez MD [address] [facility] [place] [address] PhysicianHematology/Oncology12/26/22 Margot So, SUNIL [address] [facility] [place] [address] Specialty Care CoordinatorHematology/Oncology12/26/22 Patricia Conteh, INSURANCE VERIFICATION REP.FICTION AND NONFICTION WRITER PROSE [address] [facility] [place] [address] Nurse PractitionerHematology/Oncology12/26/22Team MemberRelationshipSpecialty Start DateEnd Date Sergio Sneed MD PCP - GeneralFamily Nfuiygfw33/17/19 Jian Rodriguez MD [address] [place] [address] PhysicianUrolog10/28/19 Keven Castaneda MD [address] [place] [address] Hbrvhedrqk62/30/22 Graeme Vazquez MD [address] [facility] [place] [address] PhysicianHematology/Oncology12/26/22 Margot So, SUNIL [address] [facility] [place] [address] Specialty Care CoordinatorHematology/Oncology12/26/22 Patricia Conteh, INSURANCE VERIFICATION REP.FICTION AND NONFICTION WRITER PROSE [address] [facility] [place] [address] Nurse PractitionerHematology/Oncology12/26/22Team MemberRelationshipSpecialty Start DateEnd Date Sergio Sneed MD PCP - GeneralFamily Iwhcgdbg69/17/19 Jian Rodriguez MD [address] [place] [address] PhysicianUrolog10/28/19 Keven Castaneda MD [address] [place] [address] Kuxjqeawov78/30/22 Graeme Vazquez MD [address] [facility] [place] [address] PhysicianHematology/Oncology12/26/22 Margot So, RN [address] [facility] [place] [address] Specialty Care CoordinatorHematology/Oncology12/26/22 Patricia Conteh, INSURANCE VERIFICATION REP.FICTION AND NONFICTION WRITER PROSE [address] [facility] [place] [address] Nurse PractitionerHematology/Oncology12/26/22Team MemberRelationshipSpecialty Start DateEnd Sergio Sneed MD PCP - GeneralFamily Lftircpj01/17/19 Jian Rodriguez MD [address] [place] [address] PhysicianUrolog10/28/19 Keven Castaneda MD [address] [place] [address] Guuuumuevs31/30/22 Graeme Vazquez MD [address] [facility] [place] [address] PhysicianHematology/Oncology12/26/22 Margot So, RN [address] [facility] [place] [address] Specialty Care CoordinatorHematology/Oncology12/26/22 Patricia Conteh, INSURANCE VERIFICATION REP.FICTION AND NONFICTION WRITER PROSE [address] [facility] [place] [address] Nurse PractitionerHematology/Oncology12/26/22Team MemberRelationshipSpecialty Start DateEnd Date Sergio Sneed MD PCP - [facility]Ad[facility] Systemly Tslfrwaz77/17/19 Jian Rodriguez MD [address] [place] [address] PhysicianUrolog10/28/19 Keven Castaneda MD [address] [place] [address] Dhknutxkfy94/30/22 Graeme Vazquez MD [address] [facility] [address] [place] [address] PhysicianHematology/Oncology12/26/22 Margot So, SUNIL [address] [facility] [place] [address] Specialty Care CoordinatorHematology/Oncology12/26/22 Patricia Conteh, INSURANCE VERIFICATION REP.FICTION AND NONFICTION WRITER PROSE [address] [facility] [place] [address] Nurse PractitionerHematology/Oncology12/26/22Te MemberRelationshipSpecialty Start DateEnd Date Sergio Sneed MD PCP - [facility] Lraeikzi65/17/19 Jian Rodriguez MD [address] [place] [address] PhysicianUrolog10/28/19 Keven Castaneda MD [address] [place] [address] Zypatjssef51/30/22 Graeme Vazquez MD [address] [facility] [place] [address] PhysicianHematology/Oncology3 Margot So, SUNIL [address] [facility] [place] [address] Specialty Care CoordinatorHematology/Oncology12/26/22 Patricia Conteh, INSURANCE VERIFICATION REP.FICTION AND NONFICTION WRITER PROSE [address] [facility] [place] [address] Nurse PractitionerHematology/Oncology12/26/22Team MemberRelationshipSpecialty Start DateEnd Date Sergio Sneed MD PCP - GeneralFamily Yezrlawz65/17/19 Jian Rodriguez MD PhysicianUrolog10/28/19 Keven Castaneda MD [address] [place] [address] Cgujqriuye62/30/22 Graeme Vazquez MD [address] [facility] [place] [address] PhysicianHematology/Oncology12/26/22 Margot So, SUINL [address] [facility] [place] [address] Specialty Care CoordinatorHematology/Oncology12/26/22 Patricia Conteh, INSURANCE VERIFICATION REP.FICTION AND NONFICTION WRITER PROSE [address] [facility] [place] [address] Nurse PractitionerHematology/Oncology3Team MemberRelationshipSpecialty Start DateEnd Date Sergio Sneed MD PCP - GeneralFamily Fqjmswzi89/17/19 Jian Rodriguez MD PhysicianUrolog10/28/19 Keven Castaneda MD [address] [facility] [address] [place] [address] Zndshxycim43/30/22 Graeme Vazquez MD [address] [facility] [place] [address] PhysicianHematology/Oncology12/26/22 Margot So, SUNIL [address] [facility] [place] [address] Specialty Care CoordinatorHematology/Oncology12/26/22 Patricia Conteh, INSURANCE VERIFICATION REP.[facility] [address] [facility] [place] [address] Nurse PractitionerHematology/Oncology12/26/22Team MemberRelationshipSpecialty Start DateEnd Sergio Sneed MD PCP - GeneralFamily Riftfqme88/17/19 Jian Rodriguez MD PhysicianUrolog10/28/19 Keven Castaneda MD [address] [facility] [address] [place] [address] Ggrknzlcye30/30/22 Graeme Vazquez MD [address] [place] [address] [place] [address] PhysicianHematology/Oncology3 Margot So, SUNIL [address] [facility] [place] [address] Specialty Care CoordinatorHematology/Oncology12/26/22 Patricia Conteh, INSURANCE VERIFICATION REP.FICTION AND NONFICTION WRITER PROSE [address] [facility] [place] [address] Nurse PractitionerHematology/Oncology12/26/22Team MemberRelationshipSpecialty Start DateEnd Date Sergio Sneed MD PCP - GeneralFami Iwmdijwi51/17/19 Jian Rodriguez MD PhysicianUrolog10/28/19 Keven Castaneda MD [address] [facility] [address] [place] [address] Qzdgwsdyjo66/30/22 Graeme Vazquez MD [address] [facility] [place] [address] PhysicianHematology/Oncology12/26/22 Margot So RN [address] [facility] [place] [address] Specialty Care CoordinatorHematology/Oncology12/26/22 Patricia Conteh, INSURANCE VERIFICATION REP.FICTION AND NONFICTION WRITER PROSE [address] [facility] [place] [address] Nurse PractitionerHematology/Oncology12/26/22Team MemberRelationshipSpecialty Start DateEnd Date Sergio Sneed MD PCP - GeneralFamily Ftibccce84/17/19 Jian Rodriguez MD PhysicianUrology1 Keven Castaneda MD [address] [facility] [address] [place] [address] Mykuqpmjtm90/30/22 Graeme Vazquez MD [address] [facility] [place] [address] PhysicianHematology/Oncology12/26/22 Margot So, SUNIL [address] [facility] [place] [address] Specialty Care CoordinatorHematology/Oncology12/26/22 Patricia Conteh APRN.FICTION AND NONFICTION WRITER PROSE [address] [facility] [place] [place] [address] Nurse PractitionerHematology/Oncology12/26/22Team MemberRelationshipSpecialty Start DateEnd Date Sergio Sneed MD PCP - GeneralFamily Yxpwbhdw64/17/19 Jian Rodriguez MD PhysicianUrology1 Keven Castaneda MD [address] [facility] [address] [place] [address] Ichvwqgsfj98/30/22 Graeme Vazquez MD [address] [facility] [place] [address] PhysicianHematology/Oncology12/26/22 Margot So, SUNIL [address] [facility] [place] [address] Specialty Care CoordinatorHematology/Oncology12/26/22 Patricia Conteh APRN.FICTION AND NONFICTION WRITER PROSE [address] [place] [address] [place] [address] Nurse PractitionerHematology/Oncology12/26/22Team MemberRelationshipSpecialty Start DateEnd Date Sergio Sneed MD PCP - GeneralFamily Watbsnxb52/17/19 Jian Rodriguez MD PhysicianUrolog10/28/19Te MemberRelationshipSpecialtyStart DateEnd Date Sergio Sneed MD PCP - GeneralFamily Bfgbyieh30/17/19 Jian Rodriguez MD PhysicianUrolog10/28/19 Keven Castaneda MD [address] [facility] [address] [place] [address] Uarjtojhxw92/30/22 Graeme Vazquez MD [address] [place] [address] [place] [address] PhysicianHematology/Oncology12/26/22 Margot So, SUNIL [address] [facility] [place] [address] Specialty Care CoordinatorHematology/Oncology3 Patricia Conteh, INSURANCE VERIFICATION REP.FICTION AND NONFICTION WRITER PROSE [address] [facility] [place] [address] Nurse PractitionerHematology/Oncology12/26/22Team MemberRelationshipSpecialty Start DateEnd Date Sergio Sneed MD PCP - GeneralFamily Bvkfddyf51/17/19 Jian Rodriguez MD PhysicianUrolog10/28/19 Keven Castaneda MD [address] [facility] [address] [place] [address] Xxrhmmflir71/30/22 Graeme Vazquez MD [address] [facility] [place] [address] PhysicianHematology/Oncology12/26/22 Margot So, RN [address] [facility] [place] [address] Specialty Care CoordinatorHematology/Oncology12/26/22 Patricia Conteh, INSURANCE VERIFICATION REP.FICTION AND NONFICTION WRITER PROSE [address] [facility] [place] [address] Nurse PractitionerHematology/Oncology12/26/22Team MemberRelationshipSpecialty Start DateEnd Date Sergio Sneed MD PCP - GeneralFamily Vbdzqvaf19/17/19 Jian Rodriguez MD PhysicianUrolog10/28/19 Keven Castaneda MD [address] [place] [address] Maiycltjcy77/30/22 Graeme Vazquez MD [address] [facility] [place] [address] PhysicianHematology/Oncology12/26/22 Margot So, SUNIL [address] [facility] [place] [address] Specialty Care CoordinatorHematology/Oncology12/26/22 Patricia Conteh APRN.FICTION AND NONFICTION WRITER PROSE [address] [place] [address] [address] [place] [facility] Nurse PractitionerHematology/Oncology12/26/22Team MemberRelationshipSpecialty Start DateEnd Sergio Sneed MD PCP - GeneralFamily Ywwnmffu86/17/19 Jian Rodriguez MD PhysicianUrolog10/28/19 Keven Castaneda MD [address] [facility] [address] [place] [address] Thtqeanaat17/30/22 Graeme Vazquez MD [address] [facility] [place] [address] PhysicianHematology/Oncology12/26/22 Margot So, RN [address] [facility] [place] [address] Specialty Care CoordinatorHematology/Oncology12/26/22 Patricia Conteh, INSURANCE VERIFICATION REP.FICTION AND NONFICTION WRITER PROSE [address] [facility] [place] [address] Nurse PractitionerHematology/Oncology12/26/22Team MemberRelationshipSpecialty Start DateEnd Date Sergio Sneed MD PCP - GeneralFamily Atqosvla94/17/19 Jian Rodriguez MD PhysicianUrolog10/28/19 Keven Castaneda MD [address] [facility] [address] [place] [address] Grcxlhptsy22/30/22 Graeme Vazquez MD [address] [facility] [place] [address] PhysicianHematology/Oncology12/26/22 Margot So RN [address] [facility] [place] [address] Specialty Care CoordinatorHematology/Oncology12/26/22 Patricia Conteh, INSURANCE VERIFICATION REP.FICTION AND NONFICTION WRITER PROSE [address] [facility] [place] [address] Nurse PractitionerHematology/Oncology12/26/22Team MemberRelationshipSpecialty Start DateEnd Date Sergio Sneed MD PCP - GeneralFamily Nflwveny95/17/19 Jian Rodriguez MD PhysicianUrology1 Keven Castaneda MD [address] [facility] [address] [place] [address] Krmtmzltij85/30/22 Graeme Vazquez MD [address] [facility] [place] [address] PhysicianHematology/Oncology12/26/22 Margot So, RN [address] [facility] [place] [address] Specialty Care CoordinatorHematology/Oncology12/26/22 Patricia Conteh, MARSHA.FICTION AND NONFICTION WRITER PROSE [address] [facility] [place] [address] Nurse PractitionerHematology/Oncology12/26/22Team MemberRelationshipSpecialty Start DateEnd Date Sergio Sneed MD PCP - GeneralFamily Druozhrd64/17/19 Jian Rodriguez MD PhysicianUrology1 Keven Castaneda MD [address] [facility] [address] [place] [address] Tcpzdkxrcg90/30/22 Graeme Vazquez MD [address] [facility] [place] [address] PhysicianHematology/Oncology3 Margot So, SUNIL [address] [facility] [place] [address] Specialty Care CoordinatorHematology/Oncology12/26/22 Patricia Conteh, INSURANCE VERIFICATION REP.FICTION AND NONFICTION WRITER PROSE [address] [facility] [place] [address] Nurse PractitionerHematology/Oncology12/26/22Team MemberRelationshipSpecialty Start DateEnd Date Sergio Sneed MD PCP - Generalmi Zzusstrt56/17/19 Jian Rodriguez MD PhysicianUrolog10/28/19 Keven Castaneda MD [address] [place] [address] Mbwgdbqwsn41/30/22 Graeme Vazquez MD [address] [facility] [place] [address] PhysicianHematology/Oncology12/26/22 Margot So RN [address] [facility] [place] [address] Specialty Care CoordinatorHematology/Oncology12/26/22 Patricia Conteh, INSURANCE VERIFICATION REP.FICTION AND NONFICTION WRITER PROSE [address] [facility] [place] [address] Nurse PractitionerHematology/Oncology12/26/22Team MemberRelationshipSpecialty Start DateEnd Date Sergio Sneed MD PCP - GeneralFamily Hmlwpuvb24/17/19 Jian Rodriguez MD PhysicianUrology1 Kveen Castaneda MD [address] [facility] [address] [place] [address] Yvfubuskaw63/30/22 Graeme Vazquez MD [address] [place] [address] PhysicianHematology/Oncology12/26/22 Margot So, SUNIL [address] [facility] [place] [address] Specialty Care CoordinatorHematology/Oncology12/26/22 Patricia Conteh APRN.FICTION AND NONFICTION WRITER PROSE [address] [facility] [place] [address] Nurse PractitionerHematology/Oncology12/26/22Team MemberRelationshipSpecialty Start DateEnd Date Sergio Sneed MD PCP - GeneralFamily Jykwycle06/17/19 Jian Rodriguez MD PhysicianUrology1 Keven Castaneda MD [address] [facility] [address] [place] [address] Uuurggmmmp45/30/22 Graeme Vazquez MD [address] [facility] [place] [address] PhysicianHematology/Oncology3 Margot So, SUNIL [address] [facility] [place] [address] Specialty Care CoordinatorHematology/Oncology3 Patricia Conteh, INSURANCE VERIFICATION REP.FICTION AND NONFICTION WRITER PROSE [address] [place] [address] [place] [address] Nurse PractitionerHematology/Oncology12/26/22Team MemberRelationshipSpecialty Start DateEnd Date Sergio Sneed MD PCP - GeneralFamily Txhhpsig59/17/19 Jian Rodriguez MD PhysicianUrolog10/28/19 Keven Castaneda MD [address] [facility] [address] [place] [address] Fslrxtscrw02/30/22 Graeme Vazquez MD [address] [place] [address] [place] [address] PhysicianHematology/Oncology12/26/22 Margot So, SUNIL [address] [facility] [place] [address] Specialty Care CoordinatorHematology/Oncology12/26/22 Patricia Conteh, INSURANCE VERIFICATION REP.FICTION AND NONFICTION WRITER PROSE [address] [place] [address] [place] [address] Nurse PractitionerHematology/Oncology3Team MemberRelationshipSpecialty Start DateEnd Date Sergio Sneed MD PCP - GeneralFamily Gtvqrutt12/17/19 Jian Rodriguez MD PhysicianUrolog10/28/19 Keven Castaneda MD [address] [place] [address] Uxpkppjfwf75/30/22 Graeme Vazquez MD [address] [place] [address] [place] [address] PhysicianHematology/Oncology12/26/22 Margot So, SUNIL [address] [facility] [address] [place] [id number] Specialty Care CoordinatorHematology/Oncology12/26/22 Patricia Conteh APRN.FICTION AND NONFICTION WRITER PROSE [address] [place] [address] [place] [address] Nurse PractitionerHematology/Oncology12/26/22Team MemberRelationshipSpecialty Start DateEnd Date Sergio Sneed MD PCP - GeneralFamily Pfnanker38/17/19 Jian Rodriguez MD PhysicianUrolog10/28/19 Keven Castaneda MD [address] [facility] [address] [place] [address] Tnikuepeab20/30/22 Graeme Vazquez MD [address] [facility] [place] [address] PhysicianHematology/Oncology3 Margot So, RN [address] [facility] [place] [address] Specialty Care CoordinatorHematology/Oncology12/26/22 Patricia Conteh, INSURANCE VERIFICATION REP.FICTION AND NONFICTION WRITER PROSE [address] [facility] [place] [address] Nurse PractitionerHematology/Oncology12/26/22Team MemberRelationshipSpecialty Start DateEnd Date Sergio Sneed MD PCP - GeneralFamily Djyikhzp17/17/19 Jian Rodriguez MD PhysicianUrolog10/28/19 Keven Castaneda MD [address] [facility] [address] [place] [address] Doomqzboja26/30/22 Graeme Vazquez MD [address] [facility] [place] [address] PhysicianHematology/Oncology12/26/22 Margot So, SUNIL [address] [facility] [place] [address] Specialty Care CoordinatorHematology/Oncology12/26/22 Patricia Conteh, INSURANCE VERIFICATION REP.FICTION AND NONFICTION WRITER PROSE [address] [facility] [place] [address] Nurse PractitionerHematology/Oncology3/15/23Team MemberRelationshipSpecialty Start DateEnd Date Sergio Sneed MD PCP - GeneralFamily Mxrirmel94/17/19 Jian Rodriguez MD PhysicianUrolog10/28/19 Keven Castaneda MD [address] [facility] [address] [place] [address] Faireqchlz26/30/22 Graeme Vazquez MD [address] [facility] [place] [address] PhysicianHematology/Oncology12/26/22 Margot So, SUNIL [address] [facility] [place] [address] Specialty Care CoordinatorHematology/Oncology12/26/22 Patricia Conteh APRN.FICTION AND NONFICTION WRITER PROSE [address] [facility] [place] [address] Nurse PractitionerHematology/Oncology12/26/22Te MemberRelationshipSpecialty Start DateEnd Date Marilu Roach CNP [address] [place], [place] [address] PCP - GeneralNurse Practitioner05/18/24 Jian Rodriguez MD PhysicianUrolog10/28/19 Keven Castaneda MD [address] [facility] [address] [place] [address] Xowypshwnx54/30/22 Graeme Vazquez MD [address] [facility] [place] [address] PhysicianHematology/Oncology3 Margot So, SUNIL [address] [facility] [place] [address] Specialty Care CoordinatorHematology/Oncology12/26/22 Patricia Conteh, INSURANCE VERIFICATION REP.FICTION AND NONFICTION WRITER PROSE [address] [place] [address] [place] [address] Nurse PractitionerHematology/Oncology12/26/22Team MemberRelationshipSpecialty Start DateEnd Date Sergio Sneed MD PCP - GeneralFamily Ntcystub77/17//02/04 Jian Rodriguez MD PhysicianUrolog10/28/19 Keven Castaneda MD [address] [facility] [address] [place] [address] Yofpycjgpw51/30/22 Graeme Vazquez MD [address] [facility] [place] [address] PhysicianHematology/Oncology12/26/22 Margot So, RN [address] [facility] [place] [address] Specialty Care CoordinatorHematology/Oncology12/26/22 Patricia Conteh, INSURANCE VERIFICATION REP.FICTION AND NONFICTION WRITER PROSE [address] [place] [address] [place] [address] Nurse PractitionerHematology/Oncology12/26/22Team MemberRelationshipSpecialty Start DateEnd Date Sergio Sneed MD PCP - GeneralFamily Gyubtkrm07/17/ Jian Rodriguez MD PhysicianUrolog10/28/19 Keven Castaneda MD [address] [facility] [address] [place] [address] Lxdvqwekpv23/30/22 Graeme Vazquez MD [address] [place] [address] [place] [address] PhysicianHematology/Oncology12/26/22 Margot So, SUNIL [address] [place] [address] [place] [address] Specialty Care CoordinatorHematology/Oncology12/26/22 Patricia Conteh APRN.FICTION AND NONFICTION WRITER PROSE [address] [place] [address] [place] [address] Nurse PractitionerHematology/Oncology12/26/22Team MemberRelationshipSpecialty Start DateEnd Date Marilu Roach CNP [address] [facility] [place] [address] PCP - GeneralNurse Practitioner05/18/24 Jian Rodriguez MD PhysicianUrolog10/28/19 Keven Castaneda MD [address] [facility] [address] [place] [address] Cuvqzntten09/30/22 Graeme Vazquez MD [address] [facility] [place] [address] PhysicianHematology/Oncology12/26/22 Margot So, RN [address] [facility] [place] [address] Specialty Care CoordinatorHematology/Oncology12/26/22 Patricia Conteh APRN.[facility] [address] [facility] [place] [address] Nurse PractitionerHematology/Oncology12/26/22Team MemberRelationshipSpecialty Start DateEnd Date Sergio Sneed MD PCP - GeneralFamily Tuhimzfu80/17/198/02/04 Jian Rodriguez MD PhysicianUrolog10/28/19 Keven Castaneda MD [address] [facility] [address] [place] [address] Qeraktiqzh38/30/22 Graeme Vazquez MD [address] [facility] [place] [address] PhysicianHematology/Oncology12/26/22 Margot So, RN [address] [facility] [place] [address] Specialty Care CoordinatorHematology/Oncology12/26/22 Patricia Conteh, INSURANCE VERIFICATION REP.FICTION AND NONFICTION WRITER PROSE [address] [facility] [place] [address] Nurse PractitionerHematology/Oncology12/26/22Team MemberRelationshipSpecialty Start DateEnd Date Sergio Sneed MD PCP - GeneralFamily Xazsivem85/17/ Jian Rodriguez MD PhysicianUrolog10/28/19 Keven Castaneda MD [address] [facility] [address] [place] [address] Qmpvonrejn37/30/22 Graeme Vazquez MD [address] [facility] [place] [address] PhysicianHematology/Oncology12/26/22 Margot So, RN [address] [facility] [place] [address] Specialty Care CoordinatorHematology/Oncology12/26/22 Patricia Conteh, INSURANCE VERIFICATION REP.FICTION AND NONFICTION WRITER PROSE [address] [facility] [place] [address] Nurse PractitionerHematology/Oncology12/26/22Team MemberRelationshipSpecialty Start DateEnd Date Marilu Roach CNP [address] [facility] [place] [address] PCP - GeneralNurse Practitioner05/18/24 Jian Rodriguez MD PhysicianUrolog10/28/19 Keven Castaneda MD [address] [facility] [address] [place] [address] Jtbgwqcjkn73/30/22 Graeme Vazquez MD [address] [place] [address] [place] [address] PhysicianHematology/Oncology12/26/22 Margot So, SNUIL [address] [place] [address] [place] [address] Specialty Care CoordinatorHematology/Oncology12/26/22 Patricia Conteh APRN.FICTION AND NONFICTION WRITER PROSE [address] [place] [address] [place] [address] Nurse PractitionerHematology/Oncology12/26/22Team MemberRelationshipSpecialty Start DateEnd Date Marilu Roach, INSURANCE VERIFICATION REP - FICTION AND NONFICTION WRITER PROSE [address] [place] [address] PCP - GeneralFamily Nurse Practitioner04/21/24Team MemberRelationshipSpecialty Start DateEnd Date Marilu Roach, INSURANCE VERIFICATION REP - FICTION AND NONFICTION WRITER PROSE [address] [place] [address] PCP - GeneralFamily Nurse Practitioner04/21/24Team MemberRelationshipSpecialty Start DateEnd Date Marilu Roach FICTION AND NONFICTION WRITER PROSE [address] [place] [address] PCP - GeneralNurse Practitioner05/18/24 Jian Rodriguez MD PhysicianUrolog10/28/19 Keven Castaneda MD [address] [facility] [address] [place] [address] Nkjddkfcvk70/30/22 Graeme Vazquez MD [address] [place] [address] [place] [address] PhysicianHematology/Oncology12/26/22 Margot So, SUNIL [address] [place] [address] [place] [address] Specialty Care CoordinatorHematology/Oncology12/26/22 Patricia Conteh APRN.FICTION AND NONFICTION WRITER PROSE [address] [place] [address] [place] [address] Nurse PractitionerHematology/Oncology12/26/22Team MemberRelationshipSpecialty Start DateEnd Date Marilu Roach, INSURANCE VERIFICATION REP - FICTION AND NONFICTION WRITER PROSE [address] [place] [address] PCP - GeneralFamily Nurse Practitioner04/21/24Team MemberRelationshipSpecialty Start DateEnd Date Marilu Roach, INSURANCE VERIFICATION REP - FICTION AND NONFICTION WRITER PROSE [address] [place] [address] PCP - GeneralFamily Nurse Practitioner04/21/24Team MemberRelationshipSpecialty Start DateEnd Date Marilu Roach FICTION AND NONFICTION WRITER PROSE [address] [place] [address] PCP - GeneralNurse Practitioner05/18/24 Jian Rodriguez MD PhysicianUrolog/ Keven Castaneda MD [address] [facility] [address] [place] [address] Pxnkakuqwd28/30/22 Graeme Vazquez MD [address] [place] [address] [place] [address] PhysicianHematology/Oncology12/26/22 Patricia Conteh APRN.FICTION AND NONFICTION WRITER PROSE [address] [place] [address] [place] [address] Nurse PractitionerHematology/Oncology12/26/22Te MemberRelationshipSpecialty Start DateEnd Date MightMarilu, INSURANCE VERIFICATION REP-FICTION AND NONFICTION WRITER PROSE [address] [facility] [place] [place] [address] PCP - GeneralFamily Medicine04/20/25Team MemberRelationshipSpecialtyStart DateEnd Date MightMarilu, INSURANCE VERIFICATION REP-FICTION AND NONFICTION WRITER PROSE [address] [facility] [place] [address] PCP - GeneralFamily Medicine04/20/25Team MemberRelationshipSpecialtyStart DateEnd Date MightMarilu, INSURANCE VERIFICATION REP-FICTION AND NONFICTION WRITER PROSE [address] [facility] [place] [address] PCP - GeneralFamily Medicine04/20/25Team MemberRelationshipSpecialtyStart DateEnd Date Marilu Roach, INSURANCE VERIFICATION REP-FICTION AND NONFICTION WRITER PROSE [address] [facility] [place] [address] PCP - GeneralFamily Medicine04/20/25Team MemberRelationshipSpecialtyStart DateEnd Date Might, Marilu Nelson, INSURANCE VERIFICATION REP-FICTION AND NONFICTION WRITER PROSE [address] [facility] Reena [facility] [place] [address] PCP - GeneralFamily Medicine04/20/25 Inactive Administered Medications - up to 3 most recent administrations Administered Medications (un recognized section and content) Medication OrderMAR ActionAction DateDoseRateSite NaCl 0.9% 500 mL INTRAVENOUS, at 500 mL/hr, Administer over 1 Hours, ONCE, 1 dose, On Sat11/29/23 at 1330 New Bag/Syringe/Mnzhkj4511/29/2023 1:42 PM HFC183 mL/hr pembrolizumab 200 mg in NaCl 0.9% 66 mL (KEYTRUDA) 200 mg, INTRAVENOUS, Administer over 30 Minutes, ONCE, 1 dose, On Sat11/29/23 at 1330, EXP: 11/29/2023 1930 RT Administer with 0.2 micron filter. New Bag/Syringe/Vkzesl5611/29/2023 2:16 PM MIX813 mg Scheduled Active and Recently Administ ered [...] BE BASED ON THE PRIMARY CLINICAL RECORDS. [facility] [employer] [facility]. provides no warranty or guarantee of the accuracy or completeness of information in this document.
[2025-09-21 08:14] LABS: Anion Gap 12.7; Blood Urea Nitrogen 40.0 mg/dL (7.0-18.0); Calcium 8.6 mg/dL (8.5-10.1); Carbon Dioxide 32.4 mmol/L (21.0-32.0); Chloride 108 mmol/L (98-107); Estimated GFR (African America 34 (>=60 mL/min/1.73m^2); Estimated GFR (Non-African Ame 28 (>=60 mL/min/1.73m^2); Glucose 106 mg/dL (74-106); Potassium 4.1 mmol/L (3.5-5.1); Sodium 149 mmol/L (136-145)
== END 2025-09-21 07:34 | disposition home or self-care (01) ==
LOC: LAB 07:35
PROVIDERS: Visit Provider Internal Medicine Interventional Cardiology
DX: I50.23 Acute on chronic systolic (congestive) heart failure (principal)
CPT/HCPCS: 36415; 80048

== ENCOUNTER 2025-09-28 07:27 | Outpatient (OUT) | payer MEDICARE, SELFPAY ==
--- OUTSIDE RECORDS SUMMARY | 2025-09-17 10:00 | XMS_ITS | Encounter Summary ---
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; Primary hypertension; Complete heart block (CMS/HCC); Cardiac pacemaker in situ; Stage 3b chronic kidney disease (CMS/HCC) Social History Tobacco UseTypesPacks/DayYears UsedDateSmoking Tobacco: FormerCigarettesQuit: 1980Smokeless Tobacco: NeverAlcohol UseStandard Drinks/WeekCommentsNot Currently 0 (1 standard drink = 0.6 oz pure alcohol)[facility] UtilitiesAnswerDate RecordedIn the past 12 months has the [employer], gas, oil, or water [employer] threatened to shut off services in your home?No03/23/2024Humiliation, Afraid, Rape, and Kick questionnaireAnswerDate RecordedWithin the last year, have you been afraid of your partner or ex-partner?No06/11/2024Within the last year, have you been humiliated or emotionally abused in other ways by your partner or ex-partner?No 06/11/2024Within the last year, have you been kicked, [...] and heating?Not very hard03/23/2024HQ-2AnswerDate 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 Health Questionnaire-2 [id number] Safety & Environment AnswerDate RecordedWithin the last [...] file03/23/2024Sex and Gender InformationValueDate RecordedSex Assigned at KebwxXntd30/24/2024 10:53 AM EDTLegal BriVraq4104/12/2022 12:06 AM EDTGender UjanyfiwZpmd55/24/2024 10:53 AM EDTSexual Orientation Heterosexual or Vuhicdfm00/24/2024 10:53 AM EDTdocumented as of this encounter Last Filed Vital Signs Vital SignReadingTime TakenCommentsBlood Svaoufti034/8409/17/2025 9:50 AM EST Vcbzb347409/17/2025 9:50 AM ESTTemperature--Respiratory Rate--Oxygen Eovsllamte05% 09/17/2025 9:50 AM ESTInhaled Oxygen Concentration--Oeaaqq09.2 kg (179 lb) 09/17/2025 9:50 AM DMTPycumj796.6 cm (5' 4 )09/17/2025 9:50 AM ESTBody Mass Index30.7309/17/2025 9:50 AM ESTdocumented in this encounter Progress Notes * Keven Castaneda MD - 09/17/2025 10:00 AM EST Images from the original note were not included. [place] [facility] Subjective Juan Jose Sanchez is a 85 y.o. year old male patient being seen for an early appointment requested by his daughter due to an increase in SOB/CHANDRA. Recent Echo done. Patient states he has some leg swelling, Increased SOB/CHANDRA, feels like he has to breath heavy and harder, low back pain. Itching chest, groin,arms, legs, racing/palpitations. Patient denies dizziness/lightheaded, Patient Active Problem List Diagnosis Hypertensive disorder [...] Drug use: Never HPI Mr Juan Jose Sanchez is seen in follow up. He is [...] relieved by rest. He was evaluated [facility] ED and his CBC, BMP, BNP, Liver enzymes, 2 sets of troponin wereall negative. Past testing: Echocardiogram 12/2014: Normal LV [...] a stress test that showed significantly reduced left- ventricular systolic function with an ejection fraction of [...] I optimize heart failure treatment by adding hydralazine 10 mg 3 times daily, isosorbide dinitrate 10 mg 3 times daily, furosemide 20 mg daily and metoprolol succinate 25 mg daily. Echocardiogram 07/21/2021 showed EF 25 to 30%. Right-sided pressures were normal. He has been feeling very good with the medications changes. No chest pain. NYHA class II dyspnea. Mild leg edema. Echocardiogram 07/21/2021: Moderately severely reduced left ventricular systolic function with global hypokinesis, ejection fraction is 25-30%. Normal RV systolic function. Grade 3 diastolic dysfunction. Mild aortic and tricuspid regurgitation. Mild to moderate mitral regurgitation. Normal right-sided pressures. No pericardial effusion. Blood testing 08/28/2021: NT proBNP 1419, BUN 24, creatinine 1.73, potassium 4.7. EGFR 38. Visit of 11/10/2021: He is seen in follow-up. Recently he underwent a urologic procedure. 1 week later he was admitted to the [facility] and then transferred to [facility] with acute renal insufficiency and failure. He responded to conservative management and intravenous hydration. His renal function improved. His medications were continued. He was discharged on 11/02/2021. His blood pressure is elevated today. He otherwise feels great. He has no shortness of breath. No chest pain. No leg edema. Echocardiogram 11/08/2021: LV systolic function is mildly reduced with wall motion abnormalities involving the inferior and inferolateral wall. Estimated ejection fraction is 40 to 45%. Normal RV systolic function. Mild mitral regurgitation. Normal right-sided pressures. No pericardial effusion. ECG 10/30/2021: Sinus rhythm, right bundle branch block, left anterior fascicular block. LVH with repolarization abnormalities. Blood testing 10/31/2021 [on admission with acute renal failure] GFR 6, potassium 4.8, BUN 79, creatinine 8.97. Visit of 02/21/2022: He is seen in follow-up. He reports that he has not been feeling well due to receiving cancer treatment and causing a lot ofGI side effects. Otherwise he has no angina. He has shortness of breath on exertion. NYHA class II.No lower extremity edema. He has been taking medications. His blood pressure recordings at home show a systolic blood pressure ranging from 130 to 140 mmHg. Blood testing 02/19/2022: BUN 24, creatinine 1.96, EGFR 33, potassium 3.5, NT proBNP 780. Blood testing 11/20/2021: BUN 37, creatinine 2.39, potassium 4.2, EGFR 26, NT proBNP 939. Update 04/17/2022: He is seen in follow-up. In February 2022 he was admitted to the [facility] with dehydration, and intravascular volume depletion. This was after he had treatment for his cancer and developed vomiting and diarrhea. He had acute kidney injury and mild but steady elevation of high-sensitivity troponin. An echocardiogram showed normal LV systolic function. His event monitor showed atrial flutter. I reviewed the strips myself. Today he denies chest pain and shortness of breath. He has no palpitations and no syncope. He needs to undergo urologic surgery but this was canceled due to uncontrolled blood pressure. His amlodipine had been stopped. Echocardiogram 02/27/2022: Normal ventricular systolic function, LVEF is 55%, no pericardial effusion. Limited study performed with no Doppler interrogation as requested. Blood testing 02/28/2022: Hemoglobin 9.1, platelets 74, potassium 3.1, BUN 25, creatinine 1.57, GFR 43, high-sensitivity troponin 229.8. Blood testing 02/26/2022: BUN 50, creatinine 2.4. Update 12/03/2022: He is seen in follow-up. At last visit I added amlodipine 10 mg daily for control of blood pressure. I also referred him to Dr. Jimbo Reddy for consideration of atrial flutter ablation. Dr. Jimbo Reddy wanted to proceed with implantation of loop recorder. The patient did not want to have that. In September 2022 he presented with hematuria and was treated at [facility] for urologic issues. His aspirin was stopped. 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 He isplanned to have urologic procedure soon as well as potentially chemotherapy. His renal function hasdeteriorated and his GFR is now around 12. He does not have chest pain. He has some shortness of breath on exertion but no lower extremity edema. No palpitations. Update 01/31/2024: He is seen in follow-up. Recently he was evaluated in cardiology clinic because of volume overload and elevated BNP levels. His Lasix was increased from 40 mg daily to 40 mg 2 times daily. He reports that he has lost significant amount of weight overall but recently has been having increase in weight. His leg swelling has significantly improved initially but then is slightly creeping up. Otherwise he denies chest pain. He has shortness of breath on exertion NYHA class II symptoms. No palpitations. Update 04/09/2024: He is seen in follow-up. He was recently admitted to the hospital with episodes of chest pain and minimally elevated troponin. He underwent cardiac catheterization. This showed moderate stenosis in the LAD that was recommended medical therapy due to smooth nature of the stenosis and his prior inability to maintain anticoagulation and antiplatelet therapy regularly because of prior bleeding. He was discharged on dual antiplatelet therapy with aspirin and Plavix. He did well after the hospitalization. Today he reports that his shortness of breath has improved. He still has bilateral lower extremity swelling. He does have bruising's in the upper extremities. He has acceptable exercise tolerance. He has had no recurrence of chest pain. Visit of 01/08/2025: He is seen in follow-up. He reports that he has been doing well from a cardiac perspective. He does not have any significantsymptoms of chest pain. He has mild shortness of breath on exertion that is not limiting him. He has no leg edema. He does not feel palpitations, dizziness or lightheadedness. He noticed few weeks ago a discharge from the site of the pacemaker. He says that it was purulent. He sought medical attention at an outside hospital and he was given Bactrim which she started 3 daysago for a total of 10 days. Visit of 07/19/2025: He is seen in follow-up. His pacemaker pocket had an infection. He was managed by Dr. Jimbo Reddy. Eventually he underwent explant of the transvenous pacemaker on 04/21/2025 and placement of a leadless pacemaker. his echocardiogram at [facility] in April 2025 was reported as EF 40 to 45%. He recently underwent anechocardiogram June 2025 that showed LVEF around 30%. Today he reports that he he has been doing well. He denies chest pain and lower extremity edema. Nopalpitations or dizziness. He has shortness of breath on exertion NYHA class II symptoms. Visit of 09/17/2025: He is seen in follow-up. At last visit due to drop in LVEF by echocardiogram July 03 25 to 30% optimized his GDMT and resumed hydralazine and started isosorbide dinitrate. I stopped Imdur and amlodipine. today he is seen in follow-up sooner than planned because of worsening shortness of breath on exertion NYHA class III symptoms. He also has bilateral lower extremity edema. He denies chest pain. No palpitations. his echocardiogram yesterday showed further reduction in LVEF to 20% with moderate mitral and tricuspid regurgitation and RVSP significantly elevated at 58 mmHg. Review of Systems Cardiovascular: Positive for dyspnea on exertion (worsening) and leg swelling. Negative for chest pain and palpitations. Respiratory: Positive for shortness of breath. Hematologic/Lymphatic: Bruises/bleeds easily. Musculoskeletal: Positive for arthritis, back pain, joint pain and muscle weakness. All other systems reviewed and are negative. Objective Visit Vitals BP 138/84 (BP Location: Left arm, Patient Position: Sitting) Pulse 68 Ht 1.626 m (5' 4 ) Wt 81.2 kg (179 lb) SpO2 97% BMI 30.73 kg/m?? Smoking Status Former BSA 1.92 m?? Physical Exam Constitutional: Appearance: He is well-developed. He is not ill-appearing. HENT: Head: Normocephalic and atraumatic. Nose: Nose normal. Eyes: General: No scleral icterus. Pupils: Pupils are equal, round, and reactive to light. Neck: Thyroid: No thyromegaly. Vascular: No JVD. Cardiovascular: Rate and Rhythm: Normal rate and regular rhythm. Pulses: Radial pulses are 2+ on the right side and 2+ on the left side. Heart sounds: Normal heart sounds. No murmur heard. No friction rub. No gallop. Pulmonary: Effort: Pulmonary effort is normal. No respiratory distress. Breath sounds: Normal breath sounds. No wheezing or rales. Chest: Chest wall: No tenderness. Comments: Prior Pacemaker incision site well-healed. Abdominal: General: Bowel sounds are normal. There is no distension. Palpations: Abdomen is soft. Tenderness: There is no abdominal tenderness. Musculoskeletal: General: No swelling. Cervical back: Neck supple. Right lower leg: No edema. Left lower leg: No edema. Skin: General: Skin is warm and dry. Neurological: General: No focal deficit present. Mental Status: He is alert and oriented to person, place, and time. Psychiatric: Mood and Affect: Mood normal. Behavior: Behavior is cooperative. Judgment: Judgment normal. Allergies Allergies Allergen Reactions Adhesive Rash and Other Other reaction(s): Severe Blisters Desonide Unknown Medications Current Outpatient Medications: aspirin 81 mg EC tablet, Take 1 tablet (81 mg) by mouth once daily as directed., Disp: 90 tablet, Rfl: 3 atorvastatin (Lipitor) 80 mg tablet, TAKE 1 TABLET BY MOUTH IN THE MORNING, Disp: 90 tablet, Rfl: 3 balsalazide (Colazal) 750 mg capsule, Take 1 capsule (750 mg) by mouth three times daily., Disp: 270 capsule, Rfl: 1 ferrous sulfate 325 (65 Fe) MG tablet, Take 65 mg by mouth every other day., Disp: , Rfl: glucosamine/chondroitin weber A/C (EEDQEBVLUNP-FTMNHFEJATS-YXN C ORAL), Take 1 capsule by mouth in themorning., Disp: , Rfl: hydrALAZINE (Apresoline) 25 mg tablet, Take 1 tablet (25 mg) by mouth three times daily., Disp: 270tablet, Rfl: 3 Lactobacillus acidophilus 0.5 mg (100 million cell) tablet, Take by mouth., Disp: , Rfl: losartan (Cozaar) 25 mg tablet, Take 1 tablet (25 mg) by mouth in the morning., Disp: 90 tablet, Rfl: 3 metoprolol succinate XL (Toprol-XL) 50 mg 24 hr tablet, TAKE 1 TABLET BY MOUTH EVERY MORNING *DO NOT CRUSH OR CHEW*, Disp: 90 tablet, Rfl: 3 multivitamin tablet, Take 1 tablet by mouth in the morning., Disp: , Rfl: pantoprazole (ProtoNix) 40 mg EC tablet, Take 1 tablet by mouth at bedtime., Disp: , Rfl: potassium chloride ER (Micro-K) 10 mEq ER capsule, Take 10 mEq by mouth in the morning and at bedtime., Disp: , Rfl: tamsulosin (Flomax) 0.4 mg 24 hr capsule, Take 0.4 mg by mouth in the morning., Disp: , Rfl: cranberry fruit (cranberry) 450 mg tablet, Take 1 capsule by mouth in the morning. (Patient not taking: Reported on 09/17/2025), Disp: , Rfl: furosemide (Lasix) 40 mg tablet, Take 1 tablet (40 mg) by mouth two times daily., Disp: 180 tablet,Rfl: 3 hyoscyamine (Levsin) 0.125 mg/5 mL elixir, Take 125 mcg by mouth every 4 (four) hours if needed forbladder spasms. (Patient not taking: Reported on 09/17/2025), Disp: , Rfl: isosorbide dinitrate (Isordil) 20 mg tablet, Take 1 tablet (20 mg) by mouth two times daily., Disp:180 tablet, Rfl: 3 levothyroxine (Synthroid) 25 mcg tablet, 1 (one) time each day at the same time. (Patient not taking: Reported on 09/17/2025), Disp: , Rfl: liothyronine (Cytomel) 5 mcg tablet, Take 5 mcg by mouth in the morning. (Patient not taking: Reported on 09/17/2025), Disp: , Rfl: magnesium oxide (Mag-Ox) 400 mg tablet, Take 400 mg by mouth in the morning. (Patient not taking: Reported on 09/17/2025), Disp: , Rfl: omeprazole (PriLOSEC) [address] capsule, Take 1 capsule twice a day by oral route for 90 days. (Patient not taking: Reported on 09/17/2025), Disp: , Rfl: ondansetron ODT (Zofran-ODT) 4 mg disintegrating tablet, Take 4 mg by mouth if needed in the morning, at noon, in the evening, and at bedtime for nausea or vomiting. (Patient not taking: Reported on 09/17/2025), Disp: , Rfl: pembrolizumab (Keytruda) 25 mg/mL chemo injection, Infuse into a venous catheter 1 (one) time. (Patient not taking: Reported on 09/17/2025), Disp: , Rfl: Recent Labs Admission on 04/19/2025, Discharged on 04/19/2025 Component Date Value Sodium 04/19/2025 139 Potassium 04/19/2025 3.6 Chloride 04/19/2025 107 CO2 04/19/2025 26 Anion Gap 04/19/2025 10 BUN 04/19/2025 33 (H) Creatinine 04/19/2025 1.85 (H) BUN/Creatinine Ratio 04/19/2025 17.8 Glucose 04/19/2025 113 (H) Calcium 04/19/2025 8.2 (L) AST 04/19/2025 25 ALT (SGPT) 04/19/2025 16 Alkaline Phosphatase 04/19/2025 54 Total Protein 04/19/2025 5.7 (L) Albumin 04/19/2025 3.5 Total Bilirubin 04/19/2025 0.5 eGFR 04/19/2025 35.3 (L) Lactate 04/19/2025 0.9 Blood Culture 04/19/2025 No growth at 5 days Blood Culture 04/19/2025 No growth at 5 days Ventricular Rate 04/19/2025 60 Atrial Rate 04/19/2025 60 AR Interval 04/19/2025 176 QRS DURATION 04/19/2025 188 QT Interval 04/19/2025 512 QTC CALCULATION(BAZETT) 04/19/2025 512 R-Malcolm 04/19/2025 105 T Wave Malcolm 04/19/2025 -25 Auto WBC 04/19/2025 4.40 RBC 04/19/2025 3.90 (L) Hemoglobin 04/19/2025 11.4 (L) Hematocrit 04/19/2025 34.0 (L) MCV 04/19/2025 87.2 MCH 04/19/2025 29.2 MCHC 04/19/2025 33.5 RDW 04/19/2025 15.2 (H) Neutrophils % 04/19/2025 69.6 Lymphocytes % 04/19/2025 15.7 (L) Monocytes % 04/19/2025 9.5 Eosinophils % 04/19/2025 3.9 Basophils % 04/19/2025 1.1 (H) Neutrophils Absolute 04/19/2025 3.06 Lymphocytes Absolute 04/19/2025 0.69 (L) Monocytes Absolute 04/19/2025 0.42 Eosinophils Absolute 04/19/2025 0.17 Basophils Absolute 04/19/2025 0.05 Platelets 04/19/2025 215 nRBC % 04/19/2025 0.0 Immature Granulocytes % 04/19/2025 0.2 Immature Granulocytes Ab* 04/19/2025 0.01 High Sensitivity Troponi* 04/19/2025 71 (HH) Blood testing 10/21/2024: Cholesterol 134, HDL 51, LDL 65, triglycerides 92. TSH 4.65. Potassium 4.5,BUN 35, creatinine 1.7, EGFR 40. ALT and AST normal. Hemoglobin 13.7, platelets 168. Blood testing 04/23/2025: Potassium 4.3, BUN 25, creatinine 1.54, eGFR 44, magnesium 1.7, ghzkjbpomw23.4, platelets 187. Blood testing 09/01/2025: Potassium 4.3, BUN 37, creatinine 1.78, eGFR 36 Imaging and other tests Echocardiogram 09/16/2025: 1. Moderate to severe concentric left ventricular hypertrophy with severely reduced systolic function. Estimated LVEF is 20%. 2. Normal right ventricular size and systolic function. 3. Grade 3 diastolic dysfunction. 4. Moderate mitral and tricuspid regurgitation. 5. Mild aortic regurgitation. 6. Moderate to severe biatrial dilatation. 7. Moderately elevated right-sided pressures. RVSP is 58 mmHg. Echocardiogram 07/06/2025: 1. Severe concentric ventricular hypertrophy with moderately to severely reduced systolic function.Estimated LVEF is 30%. 2. Normal right ventricular size and systolic function. 3. Moderate mitral regurgitation. 4. Mild to moderate biatrial dilatation. 5. Mild tricuspid regurgitation. 6. Mildly elevated right-sided pressures. Device interrogation 06/30/2025: A pacing 64%, V pacing 100%. MARI ([employer]) 04/21/2025: Left Ventricle: Left ventricle appears normal in size. Systolic function is mildly to moderately decreased with an ejection fraction of 40-45%. Mild global hypokinesis. Right Ventricle: Systolic function is mildly reduced. A pacer wire is present in the right ventricle. Left Atrium: There is no thrombus in the cavity or appendage. The left atrial appendage has been surgically closed and the repair appears to be normal. Right Atrium: A pacemaker wire is present in the right atrium. No vegetation noted on the pacemaker lead. Aortic Valve: No vegetation present on the aortic valve. Mitral Valve: No vegetation present on the mitral valve. Tricuspid Valve: No vegetation present on the tricuspid valve. Pulmonic Valve: No vegetation present on the pulmonic valve. EP procedure 04/21/2025 at [facility]: PROCEDURE: Explant of infected transvenous dual-chamber pacemaker system Pocket debridement of infected material 3 x 4 cm of infected material Temporary transvenous pacemaker support Leadless dual chamber Aveir pacemaker insertion Intracardiac echocardiography (ICE) Device interrogation 09/29/2024: Underlying rhythm complete heart block. , Lead measurements stable. No events. RA pacing 66%, RV pacing 100%. ECG 03/25/2024: AV dual paced rhythm, abnormal ECG. Cardiac catheterization 03/25/2024: Impression/Findings: Moderate stenosis in the mid LAD with 60 to 70% severity by angiography. Mild disease elsewhere. Normal left filling pressures. No evidence of aortic valve stenosis. Plan: At this time given the smooth nature of the mid LAD stenosis and his prior propensity to bleed I will manage his coronary artery disease medically. Aspirin 81 mg daily for life. Dual antiplatelet therapy with Aspirin 81 mg daily for life and Clopidogrel 75 mg daily for 12 months. Statin therapy for life. We will increase the intensity of atorvastatin therapy. Maximize antianginal therapy. Guideline directed medical therapy for heart failure. Risk factor control. Further recommendations per inpatient Cardiology service. Follow up in Cardiology Clinic. If in the future he develops angina that is refractory to medical therapy and he tolerates dual antiplatelet therapy without bleeding then we can proceed with stenting of the LAD. Echocardiogram 03/23/2024: Left Ventricle: The left ventricle is normal size. Global left ventricular systolic function is mildly reduced. The EF is 45 % visually. Left ventricular wall thickness is increased. The septum is abnormal in its motion; maybe due to pacemaker. Diastolic dysfunction was indeterminate. Concentric left ventricular hypertrophy. Right Ventricle: The right ventricle is normal in size. Right ventricular systolic function appears reduced. Doppler studies suggest normal right sided pressures. Left Atrium: The left atrium is moderately enlarged. Great Vessels: IVC: Normal size and course of the IVC. Overall Conclusions: Due to suboptimal imaging Lumason contrast was administered for opacification and better delineation of endocardial borders. Electrophysiology procedure 02/05/2024: PROCEDURES PERFORMED: 1. RV lead extraction with mechanical traction 2. New RV lead implant Pacemaker implantation 03/18/2023 [in the setting of unwitnessed syncope episode and bradycardia requiring IV dopamine]: 1. Implantation of pacemaker ([employer]) 2. Ultrasound guided venous access Successful dual chamber pacemaker with excellent pacing and sensing pa ECG 03/19/2023: AV dual paced rhythm. Echocardiogram 03/19/2023: Left Ventricle: The left ventricle is normal size. Global left ventricular systolic function is mildly reduced. Thecalculated Biplane EF is 48 %. Left ventricular wall thickness is mildly increased. The septum is abnormal in its motion; maybe due to pacemaker. Unable to assess diastolic dysfunction. Concentric left ventricular hypertrophy. Right Ventricle: The right ventricle appears normal in size. Right ventricular systolic function appears preserved. Unable to assess right sided pressures due to lack of measurable tricuspid regurgitation. Mitral Valve: There is nonspecific thickening of the mitral valve leaflet. Mild mitral regurgitation. Left Atrium: The left atrium is normal in size. Overall Conclusions: Strain imaging was performed: 4 chamber -13.8%; 2 chamber -16.1% and the 3 chamber -13.8% using [employer] software Global Longitudinal strain measurement is -14.6%. 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 Stress test 12/30/2023: Large area of severely decreased uptake in the inferior wall extending into the septum and apex on stress images with no reversibility on rest images, RCA distribution. Associated hypokinesis corresponding to the perfusion abnormality. Dilated left ventricle with end-diastolic volume of 133 mL. Low left ventricular ejection fraction of 53%. Nondiagnostic exercise test. Assessment/Plan Diagnoses and all orders for this visit: Acute on chronic systolic heart failure (CMS/HCC) - isosorbide dinitrate (Isordil) 20 mg tablet; Take 1 tablet (20 mg) by mouth two times daily. - furosemide (Lasix) 40 mg tablet; Take 1 tablet (40 mg) by mouth two times daily. 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 Complete heart block (CMS/HCC) Cardiac pacemaker in situ Stage 3b chronic kidney disease (CMS/HCC) Juan Jose is an 85-year-old man with prior history of hypertension, chronic kidney disease stage IIIb, prior acute systolic heart failure discovered on stress testing with an ejection fraction of 37% and echo 25-30%, known left bundle branch block. There was no ischemia on the stress testing. This was managed medically to avoid cardiac catheterization due to renal status. He improved with medical therapy. Echocardiogram in February 2022 showed improved ejection fraction to 55%. Ejection fraction was by a stress test in December 2023 was 53%. He had a hospital admission in February 2022 that was triggered by dehydration and volume depletion. He has recovered. In that setting he developed atrial flutter. He was previously evaluated by Dr. Jimbo Reddy from electrophysiology and recommended loop recorder but he did not want to proceed with that. There has not been any recurrence of atrial flutter. He then underwent pacemaker placement due to syncope and high-grade AV block. The RV lead was malfunctioning and was replaced on 02/05/[address]Paul Reddy. There has been no recurrence of atrial flutter on device checks. His underlying rhythm is complete heart block. In March 2024 he was admitted to the hospital with chest pain, shortness of breath, minimally elevated troponin and an echocardiogram showed ejection fraction mildly reduced at 45%. Cardiac catheterization showed a 60 to 70% stenosis in the LAD that was tubular. Due to uncertainty regarding tolerance for dual antiplatelet therapy this was decided to be managed medically. 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 His echocardiogram April 2025 showed LVEF at around 40 to 45%. Most recent echocardiogram June 2025 showed LVEF 30%. I have been trying to optimize GDMT which is limited by his chronic kidney disease. Today he reports that he has been having worsening symptoms of shortness of breath over the past few weeks. His exam does show evidence of volume overload. He has echocardiogram on 09/16/2025 showed nearly severely elevated right-sided pressures with an RVSP of 58 mmHg, moderate mitral tricuspid regurgitation and further reduction in LVEF to 20%. I think he is an acute on chronic systolic heart failure. I am going to try to manage this as an outpatient. I will increase isosorbide dinitrate to 20 mg 3 times daily and to better control his blood pressure, and increase furosemide to 40 mg twice daily. I will check a BMP in 3 to 4 days. I explained to him that if he continues to experience worsening of symptoms and no response to therapy to present himself to the emergency room for admission and IV diuresis. Otherwise I will plan on seeing him in follow-up in 1 week in the office. Because of the drop in ejection fraction likely related to continuous RV pacing, once he is out of his acute failure I will refer him back to Dr. Jimbo Reddy from electrophysiology to review options for management from an electrophysiology standpoint. For CAD, no angina, continue aspirin and statin therapy. Most recent LDL was 65. Follow up in about 1 week (around 09/24/2025). Keven Castaneda MD, documented in this encounter Plan of Treatment DateTypeDepartmentCare Team (Latest Contact Info)Oceccxztski19/16/2025 9:00 AM ESTAncillary Procedure [facility] [address] [place] [address] 09/28/2025 9:30 AM ESTOffice Visit [facility] [address] [place] [address] Jimbo Reddy MD [address] [place] [address] NameTypePriorityAssociated DiagnosesOrder ScheduleBasic metabolic panelLab Routine Acute on chronic systolic heart failure (CMS/HCC) Expected: 09/24/2025 (Approximate), Expires: 09/17/2026documented as of this encounter Visit Diagnoses Diagnosis Acute on chronic systolic heart failure (CMS/HCC)- Primary Acute on chronic systolic heart failure Coronary artery disease involving [place] coronary artery of [place] heart without angina pectoris Primary hypertension Unspecified essential hypertension Complete heart block (CMS/HCC) Atrioventricular block, complete Cardiac pacemaker in situ Stage 3b chronic kidney disease (CMS/HCC) documented in this encounter Care Teams Team MemberRelationshipSpecialtyStart DateEnd Date Faheem Tran MD [address] [place] [address] PCP - GeneralNurse Practitioner04/09/24documented as of this encounter
--- OUTSIDE RECORDS SUMMARY | 2025-09-24 13:00 | XMS_ITS | Encounter Summary ---
Author Organization [facility] Address [address] [place] [address] Care Team Providers Care Personalization Specialist Name Role Phone Faheem Tran MD Primary Care Provider [phone] Encounter Details DateTypeDepartmentCare Team (Latest Contact Info)Segofjexdxy64/12/2025 1:00 PM ESTOffice Visit [facility] at [address] [address] Keven Castaneda MD [address] [facility] [address] [facility] [place] [place] [address] Acute on chronic systolic heart failure (CMS/HCC) (Primary Dx); Coronary artery disease involving unalakleet coronary artery of unalakleet heart without angina pectoris; Primary hypertension; Complete heart block (CMS/HCC); Cardiac pacemaker in situ; Stage 3b chronic kidney disease (CMS/HCC) Social History Tobacco UseTypesPacks/DayYears UsedDateSmoking Tobacco: FormerCigarettesQuit: 1980Smokeless Tobacco: NeverAlcohol UseStandard Drinks/WeekCommentsNot Currently 0 (1 standard drink = 0.6 oz pure alcohol)[facility] UtilitiesAnswerDate RecordedIn the past 12 months has the electric, gas, oil, or water [employer] threatened to shut off services in your [...] and heating?Not very hard03/23/2024HQ-2AnswerDate 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 Health Questionnaire-2 [id number] Safety & Environment AnswerDate RecordedWithin the last [...] file03/23/2024Sex and Gender InformationValueDate RecordedSex Assigned at BvpznVyae33/24/2024 10:53 AM EDTLegal PhxVksy4304/12/2022 12:06 AM EDTGender JxjhmlolXzrn83/24/2024 10:53 AM EDTSexual Orientation Heterosexual or Kwwrcpgc15/24/2024 10:53 AM EDTdocumented as of this encounter Last Filed Vital Signs Vital SignReadingTime TakenCommentsBlood Xknbkwmv685/6209/24/2025 1:09 PM EST Sfrdm510709/24/2025 1:09 PM ESTTemperature--Respiratory Rate--Oxygen Lajoljegxe99% 09/24/2025 1:09 PM ESTInhaled Oxygen Concentration--Weight--Cddtrv936.6 cm (5' 4 )09/24/2025 1:09 PM ESTBody Mass Index--documented in this encounter Progress Notes * Keven Castaneda MD - 09/24/2025 1:00 PM EST Images from the original note were not included. [facility] Iain Sanchez is a 85 y.o. year old male patient being seen for a 1 week follow up appointment. Patient state he was doing well, today he started moving around and the lower back pain, just below the lungs, which exacerbated the SOB/CHANDRA. Patient states he has had an increase in fatigue due to sitting around, bilateral leg swelling. Patient Active Problem List Diagnosis Hypertensive disorder [...] moderate, relieved by rest. He was evaluated [facility] ED and his CBC, BMP, BNP, [...] week later he was admitted to the [facility] and then transferred to [facility] with acute renal insufficiency and failure. He [...] February 2022 he was admitted to the [facility] with dehydration, and intravascular volume depletion. [...] presented with hematuria and was treated at [facility] for urologic issues. His aspirin was stopped. [...] of a leadless pacemaker. his echocardiogram at [facility] in April 2025 was reported as EF [...] and RVSP significantly elevated at 58 mmHg. Visit of 09/24/2025: He is seen in follow-up. At last visit and due to acute on chronic systolic heart failure increase furosemide to 40 mg twicedaily and increased isosorbide dinitrate to 20 mg 3 times daily. He had evidence of significant volume overload. Today he reports that he continues to have shortness of breath on exertion. There is no significantleg edema on exam today. He is in NYHA class II-III symptoms. No chest pain. No palpitations. Review of Systems Cardiovascular: Positive for dyspnea on exertion (worsening) and leg swelling. Negative for chest pain and palpitations. Respiratory: Positive for shortness of breath. Hematologic/Lymphatic: Bruises/bleeds easily. Musculoskeletal: Positive for arthritis, back pain, joint pain and muscle weakness. All other systems reviewed and are negative. Objective Visit Vitals BP 118/62 (BP Location: Right arm, Patient Position: Sitting) Pulse 70 Ht 1.626 m (5' 4 ) SpO2 96% BMI 30.73 kg/m?? Smoking Status Former BSA [...] or rales. Chest: Chest wall: No tenderness. Abdominal: General: Bowel sounds are normal. There [...] two times daily., Disp: 180 tablet,Rfl: 3 glucosamine/chondroitin weber A/C (SWTKVLDKPLN-UKZPODKVBIC-QHN C ORAL), Take 1 capsule by mouth in themorning., Disp: , Rfl: hydrALAZINE (Apresoline) 25 mg tablet, Take 1 tablet (25 mg) by mouth three times daily., Disp: 270tablet, Rfl: 3 isosorbide dinitrate (Isordil) 20 mg tablet, Take 1 tablet (20 mg) by mouth two times daily., Disp:180 tablet, Rfl: 3 Lactobacillus acidophilus 0.5 mg (100 [...] the morning. (Patient not taking: Reported on 09/24/2025), Disp: , Rfl: hyoscyamine (Levsin) 0.125 mg/5 mL elixir, Take 125 mcg by mouth every 4 (four) hours if needed forbladder spasms. (Patient not taking: Reported on 09/24/2025), Disp: , Rfl: levothyroxine (Synthroid) 25 mcg tablet, 1 (one) time each day at the same time. (Patient not taking: Reported on 09/24/2025), Disp: , Rfl: liothyronine (Cytomel) 5 mcg tablet, Take 5 mcg by mouth in the morning. (Patient not taking: Reported on 09/24/2025), Disp: , Rfl: magnesium oxide (Mag-Ox) 400 mg tablet, Take 400 mg by mouth in the morning. (Patient not taking: Reported on 09/24/2025), Disp: , Rfl: omeprazole (PriLOSEC) [address] capsule, Take 1 capsule twice a day by oral route for 90 days. (Patient not taking: Reported on 09/24/2025), Disp: , Rfl: ondansetron ODT (Zofran-ODT) 4 mg disintegrating tablet, Take 4 mg by mouth if needed in the morning, at noon, in the evening, and at bedtime for nausea or vomiting. (Patient not taking: Reported on 09/24/2025), Disp: , Rfl: pembrolizumab (Keytruda) 25 mg/mL chemo injection, Infuse into a venous catheter 1 (one) time. (Patient not taking: Reported on 09/24/2025), Disp: , Rfl: Recent Labs Admission on [...] Rate 04/19/2025 60 Atrial Rate 04/19/2025 60 VT Interval 04/19/2025 176 QRS DURATION 04/19/2025 188 QT Interval 04/19/2025 512 QTC CALCULATION(BAZETT) 04/19/2025 512 R-Arcadia 04/19/2025 105 T Wave Arcadia 04/19/2025 -25 Auto WBC 04/19/2025 4.40 RBC [...] 25, creatinine 1.54, eGFR 44, magnesium 1.7, hoeaanarof30.4, platelets 187. Blood testing 09/01/2025: Potassium 4.3, BUN 37, creatinine 1.78, eGFR 36 Blood testing 09/21/2025: Potassium 4.1, BUN 40, creatinine 2.26, eGFR 28. Imaging and other tests Echocardiogram 09/16/2025: 1. [...] the pulmonic valve. EP procedure 04/21/2025 at [facility]: PROCEDURE: Explant of infected transvenous dual-chamber pacemaker [...] requiring IV dopamine]: 1. Implantation of pacemaker ([employer]) 2. 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 He has been having acute on chronic systolic heart failure. His echocardiogram on 09/16/2025 showed nearly severely elevated right-sided pressures with an RVSP of 58 mmHg, moderate mitral tricuspid regurgitation and further reduction in LVEF to 20%. He has improved with the medication adjustment and increasing the furosemide. I reviewed his recentBMP and it shows renal function close to baseline. He is still symptomatic NYHA class II-III symptoms. I am going to continue same current therapy. I will check BMP and CBC in 1 to 2 weeks. Because of the drop in ejection fraction likely related to continuous RV pacing, I will refer him back to Dr. Jimbo Reddy from electrophysiology to review options for management from an electrophysiology standpoint. I discussed with him the possibility of considering biventricular pacing. For CAD, no angina, continue aspirin and statin therapy. Most recent LDL was 65. Follow up in about 2 months (around 11/25/2025). Keven Castaneda MD, documented in this encounter Plan of Treatment DateTypeDepartmentCare Team (Latest Contact Info)Lqhllwebouz94/16/2025 9:00 AM ESTAncillary Procedure [facility] [address] [place] [address] 09/28/2025 9:30 AM ESTOffice Visit [facility] [address] [place] [address] Jimbo Reddy MD [address] [place] [phone] NameTypePriorityAssociated DiagnosesOrder ScheduleBasic metabolic panelLab Routine Acute on chronic systolic heart failure (CMS/HCC) Stage 3b chronic kidney disease (CMS/HCC) Expected: 10/08/2025 (Approximate), Expires: 09/24/2026BC and differentialLab Routine Acute on chronic systolic heart failure (CMS/HCC) Stage 3b chronic kidney disease (CMS/HCC) Expected: 10/08/2025 (Approximate), Expires: 09/24/2026documented as of this encounter Visit Diagnoses Diagnosis Acute on chronic systolic heart failure (CMS/HCC)- Primary Acute on chronic systolic heart failure 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
--- OUTSIDE RECORDS SUMMARY | 2025-09-28 07:33 | XMS_ITS ---
Author Organization [facility] Address [address] [place] [address] Care Team Providers Care Drying Room Operator Name Role Phone Faheem Tran MD Primary Care Provider [phone] Active Problems ProblemNoted DateDiagnosed DateAbdominal pain07/16/2025bnormal results of cardiovascular function kmgmwyq6507/16/2025enign prostatic chbntcffiij04/03/2025 Zizmqnyxgrb37/03/5239Giqmcevmiom49/03/2025Depressed left ventricular ejection zstvzgda13/03/2025Dry mouth07/16/20258625Yaaiaelxz47/03/2025Encounter for follow-up examination after completed treatment for malignant iiefocsh33/03/2025History of primary malignant neoplasm of urinary fgsvni2507/16/20259676Fwgpinwwbifzqu06/03/2025 Iron deficiency hpbvgn7207/16/2025Liver disease, hcomjvcrmip42/03/2025Presence of cardiac nfgqsiatx03/03/2025Severe protein-calorie malnutrition (Aj: less than 60% of standard weight)07/16/2025Urothelial mootrhmkz21/03/2025Vomiting 07/16/2025hest wall ulcer, with fat layer eunejzq5605/17/2025Nonhealing nonsurgical wound with fat layer jeqived1805/03/2025Open wound of left chest wall 04/22/2025Surgical wound wcwnryv6504/22/2025Infection of pacemaker pocket 01/19/2025Pre-operative cardiovascular mencoyedwey41/13/2024 Assessment & Plan (06/26/2024 11:02 AM EDT): From a cardiology perspective patient may proceed with planned EGD and colonoscopy he is low to moderate risk for low risk procedure, he may hold Plavix 5 to 7 days prior to procedure, please do not hold aspirin unless absolutely necessary thank you Congenital apsyelhamcljqm51/11/2024acemaker complications, initial encounter 02/05/2024Syncope and aqsiyffm01/02/2023 Assessment & Plan (03/15/2023 1:08 PM EDT): Reviewed with Dr Reddy and he recommended perm Pacemaker- orders sent and d/w pt and daughter= provided pt education pamphlet for Pacemaker that reviewed indications, risks vs benefits of procedure and pt voiced understanding and is agreeable with proceeding with PPM High-grade atrioventricular block03/15/2023 Overview (03/15/2023): Added automatically from request for surgery [id number] Assessment & Plan (05/05/2023 10:58 PM EDT): [...] Class I, BMI 30-34.9003/27/2022Malignant neoplasm of urinary swlsjai7211/10/2021KI (acute kidney injury)11/01/2021Hypertensive heart disease with heart cwcpfly3807/11/2021 Overview (03/15/2023): Last Assessment & Plan: -BP elevated in office 171/70, 170/72, patient reports he has not taken any of his medications yet today -denies cardiac symptoms -EF 55% on echo 02/2022 scanned into [facility] -on hydralazine, losartan, isosorbide dinitrate, and Jardiance -follows with cardiology, dr. Keven Castaneda, requested most recent office note Assessment & Plan (06/26/2024 11:02 AM EDT): Blood pressure well-controlled Continue all current medications including Toprol, losartan, Imdur, hydralazine Qddmrtdpjphadl76/18/2019Ulcerative yyswrywgqs21/29/2019 Overview (03/15/2023): Last Assessment & Plan: -stable on rx Stage 3 chronic kidney xbgbhnr0008/11/2019 Overview (03/15/2023): Last Assessment & Plan: -labs pending Gastro-esophageal reflux disease without ezmkohlgmdb67/28/2019 Overview (03/15/2023): Last Assessment & Plan: -stable on PPI Malignant neoplasm of kidney excluding renal sqwvyg7607/29/2019 Overview (03/15/2023): Last Assessment & Plan: -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, present since 2019, s/p URS and laser ablation, tumor recurrence andhas been getting chemo (last dose a few months ago), now scheduled for surgery Hypertensive invwtqjp02/24/2019 Assessment & Plan (03/15/2023 1:06 PM EDT): Hypertension is controlled Continue med regime Acquired absence of fuaosp1507/18/2018Malignant neoplasm of onfysf5007/07/2018HLD (hyperlipidemia)09/04/2017Essential ruaxakdtbqke46/22/2017 Assessment & Plan (05/05/2023 10:55 PM EDT): -stable -ct meds Zvktvvnanmjz61/22/2017Chronic systolic heart failure Assessment & Plan (06/26/2024 11:22 AM EDT): Currently euvolemic without exacerbation [place] heart class II Continue GDMT, aspirin, Lipitor, [...] Assessment & Plan (06/26/2024 11:21 AM EDT): DAK7KL6-VWTc= 5-age, heart failure, hypertension, CAD/vascular disease A-flutter [...] * ChemicalLifetime DoseAutomatic EntryManual EntryFluoro Time14.01 minutes0 .01 minutesAir Uiovj656.98 mGy0 xXo849.98 mGyDose Area Zldoekk09,101 mGy-cm20 mGy-cm233,101 mGy-cm2 Resolved Problems ProblemNoted DateDiagnosed DateResolved DateSevere protein-calorie malnutrition /Mild protein-calorie amcsemxgogim41NSTEMI (non-ST elevated myocardial infarction)/ngina pectoris, plafuidd96/
--- OUTSIDE RECORDS SUMMARY | 2025-09-28 07:33 | XMS_ITS | Encounter Summary ---
Author Organization [facility] Address [address] [place] [address] Care Team Providers Care Nursing Attendant Name Role Phone Jian Manriquez MD Unavailable [phone] Keven Castaneda MD Unavailable [phone] Caesar Prado MD Unavailable [phone] Patricia Conteh APRN.ENTERPRISE ENGINEER Unavailable [phone] Faheem Tran [facility] Primary Care Provider [phone] Source Comments In the event this information is protected by the Federal Confidentiality of Alcohol and Drug AbusePatient Records regulations: The Federal rules restrict any use of the information to criminally investigate or prosecute any alcohol or drug abuse patient.[facility] Encounter Details DateTypeDepartmentCare Team (Latest Contact Info)Nanpnddmpld64/02/2025Interfaced Data Gym Teacher Management [address] [place] [address] David Ballard MD Social History Tobacco UseTypesPacks/DayYears UsedDateSmoking Tobacco: TgttxkVduenaidxb7744158 - 1971Passive Smoke Exposure: PastSmokeless Tobacco: NeverAlcohol UseStandard Drinks/WeekCommentsNo0 (1 standard drink = 0.6 oz pure alcohol)PHQ-2AnswerDate RecordedPHQ-2 rfvfb83511/20/2022rea Deprivation IndexAnswerDate RecordedNational Score (1-100), lower number is lower rbfk938102/19/2023State Score (1-10), lower number is lower kyqx407ata from: https://www.neighborhoodatlas.[facility]/. Last address used for v[address] [place] [place] [address]/19/2023Sex and Gender InformationValueDate RecordedSex Assigned at AxmzpLplg26/16/2019 6:33 PM ESTLegal GnqRtyj6207/11/2018 8:15 AM EDTGender ZgxexykyJuer56/16/2019 6:33 PM ESTSexual OrientationStraight 09/28/2019 6:33 PM ESTdocumented as of this encounter Functional Status * Are you deaf or do you have serious difficulty hearing?AnswerDate of ZxhhzltzwdEabaltGg04/05/2023 10:06 AM Pat Cabrera RN * Are you blind or do you have serious difficulty seeing, even when wearing glasses?AnswerDate of NdhrcacwqvGybxagHr75/05/2023 10:06 AM Pat Cabrera RN * Do you have serious difficulty walking or climbing stairs?AnswerDate of IoctbywsenUwdmilLn61/05/2023 10:06 AM Pat Cabrera RN * Do you have difficulty dressing or bathing?AnswerDate of AssessmentAuthorNo 11/18/2022 10:06 AM Pat Cabrera RN * Because of a physical, mental, or emotional condition, do you have difficulty doing errands alone such as visiting a doctor's office or shopping?AnswerDate of FmkorvtkqyCfltxeEs99/05/2023 10:06 AM Pat Cabrera RN documented as of this encounter Mental Status * Because of a physical, mental, or emotional condition, do you have serious difficulty concentrating, remembering, or making decisions?AnswerEntry Date RaxunsFi32/05/2023 10:06 AM Pat Cabrera RN documented in this encounter Plan of Treatment Not on file documented as of this encounter Visit Diagnoses Not on filedocumented in this encounter Care Teams Team MemberRelationshipSpecialtyStart DateEnd Date Chelsea, Faheem Nelson ENTERPRISE ENGINEER [address] [facility] [place] [address] PCP - GeneralNurse Practitioner05/18/24 Jian Manriquez MD PhysicianUrolog10/28/19 Keven Castaneda MD [address] [facility] [address] [place] [address] Iivqnnrgqc41/30/22 Caesar Prado MD [address] [place] [address] PhysicianHematology/Oncology12/26/22 Patricia Conteh APRN.CNP [address] [place] [address] Nurse PractitionerHematology/Oncology12/26/22documented as of this encounter
--- OUTSIDE RECORDS SUMMARY | 2025-09-28 07:33 | XMS_ITS | Clinical Summary ---
Author Organization [employer] Management software tem Address [id number] [place] [address] Care Team Providers Care Financial Assistance Advisor Name Role Phone Faheem Tran CORRUGATED FASTENER DRIVER-ENTRY LEVEL ACCOUNTING CLERK Primary Care Provider [phone] Allergies Active AllergyReactionsCriticalityNoted LkrzPfjxqhnoMlbhysvhCnihEinkai46/01/2018 Severe blisters DesonideOther (See Comments)Qkdtes2811/05/2023 Medications MedicationSigDispense QuantityRefillsLast FilledStart DateEnd DateStatus balsalazide [...] with fat layer exposed 05/17/2025Infection of pacemaker eyzcdk4705/17/2025Nonhealing nonsurgical wound with fat layer waqgluo9005/03/2025Open wound of left chest wall04/22/2025Surgical wound tllmoes4004/22/2025Pacemaker complications, initial avwhrmujf11/07/2025 Ureter xmbxnf3507/18/2018Essential bpwttjxuefjr04/22/2017HLD (hyperlipidemia) 09/04/2017 Immunizations ImmunizationAdministration DatesNext DueInfluenza, Injectable, quadrivalent (PF) 09/03/2018(Deferred: Patient Refused) Social History Tobacco UseTypesPacks/DayYears UsedDateSmoking Tobacco: FormerCigarettes Smokeless Tobacco: Never Tobacco Cessation:Counseling Given: Not Answered Alcohol UseStandard Drinks/WeekCommentsNo0 (1 standard drink = 0.6 oz pure alcohol)[facility] UtilitiesAnswerDate RecordedIn the past 12 months has the ufindads, Ever[employer], or water [employer] threatened to shut off services in your home?No 04/20/2025PHQ-2AnswerDate RecordedTotal Qzhzh10111/03/2017PRAPARE - Transportation AnswerDate RecordedIn the past 12 [...] as a part of a household?No 04/20/2025hildcareAnswerDate EocbijizVwcpiecbjQcpcsjt39/12/2019EmploymentAnswer Date MwfkldonGulibohzccKzvsqqh93/12/2019Hunger ScreeningAnswerDate Recorded Within the past 12 months we worried whether our food would run out before we got money to buy more.Never True05/17/2025Within the past 12 months the food we bought just didn't last and we didn't have money to get more.Never True 05/17/2025Purpose - LifeAnswerDate RecordedPurpose and direction in lifeUnknown 11/24/2020ex and Gender InformationValueDate RecordedSex Assigned at BirthNot on fileLegal PblIxqe6605/19/2015 11:30 AM EDTGender IdentityNot on fileSexual OrientationNot on fileOccupationIndustryJob Start DateJob End DateretiredNot on fileNot on fileNot on file Last Filed Vital Signs Vital SignReadingTime TakenCommentsBlood Oiljutqd689/8305/17/2025 8:47 AM EDT Jhrbr230105/17/2025 8:47 AM XKKYbwgrxbbtqo95.9 ??C (98.4 ??F)05/17/2025 8:47 AM EDTRespiratory Xagp726905/17/2025 8:47 AM EDTOxygen Hfbjuhhvyh04%05/08/2025 10:04 AM EDTInhaled Oxygen Concentration--Mqksuq06.9 kg (163 lb)05/08/2025 10:04 AM OOPGiszlb455.6 cm (5' 4 )05/08/2025 10:04 AM EDTBody Mass Index27.9807 10:04 AM EDT Plan of Treatment Health MaintenanceDue DateLast DoneCommentsDepression Tyrtltpry96/12/1951Fall Risk Chsxonqfq16/12/2004RSV ( or age 60+ yrs) (1 - 1-dose 75+ series) 2014Zoster (Shingles) Vaccine (2 of 2)3COVID-19 Vaccine ( season)/12/2020, 11/26/2020, 11/05/2020Influenza Alfxbge35Tobacco Vvpvlyodu30/01/2025DTaP,Tdap and Td Vaccines (2 - Tdap), 01/15/2013 Goals GoalPatient Goal TypeAssociated ProblemsRecent ProgressPatient-Stated?Author <enter goal here> Farida Young RN Note: Evaluation of progress towards goal: patient progressing toward safe discharge home. Medical Devices ImplantedTypeAreaManufacturerDevice IdentifierShelf Expiration DateModel / Serial / LotPacemaker Tin Levy 19.5f 32.2 Mm Ra Crd Strl - [id number] - [id number] Implanted:Qty: 1 on 04/21/2025 by [facility]emakerLeft: ChestST SARWAT (Diag)[id number] / [id number] / Pacemaker Tin Levy 19.5f 38.0 Mm Rv Crd Strl - [id number] - [id number] Implanted:Qty: 1 on 04/21/2025 by [facility]Left: ChestST SARWAT (Diag)[id number] / [id number] / Insurance Advance Directives * Full Code (Latest Code Status on File) Date ActivatedDate InactivatedComments04/19/2025 5:09 PM04/23/2025 4:07 PM Care Teams Team MemberRelationshipSpecialtyStart DateEnd Date Might, Faheem Nelson, CORRUGATED FASTENER DRIVER-ENTRY LEVEL ACCOUNTING CLERK [address] [place] [address] PCP - GeneralFamily Medicine04/20/25
--- OUTSIDE RECORDS SUMMARY | 2025-09-28 07:33 | XMS_ITS | Clinical Summary ---
Author Organization [facility] Address [address] [place] [address] Care Team Providers Care Piping Design Specialist Name Role Phone Faheem Tran MD Primary Care Provider Allergies Active AllergyReactionsCriticalityNoted DateCommentsAdhesiveRash,OtherMedium 07/14/2018 Other reaction(s): Severe Blisters IyimgybsUmrhrcwAtb09/23/2024 Medications MedicationSigDispense QuantityRefillsLast FilledStart DateEnd DateStatus omeprazole [...] mouth in the morning.Active glucosamine/chondroitin weber A/C (SNJENJPNFNT-MFLEKNFNSBZ-OWS C ORAL) Take 1 capsule by mouth [...] mouth three times daily. 270 capsule 5Active atorvastatin (Lipitor) 80 mg tablet Indications:Angina pectoris, unstable (CMS/HCC)TAKE 1 TABLET BY MOUTH IN THE MORNING 90 tablet 5Active losartan (Cozaar) 25 mg tablet Indications:Primary hypertension,Chronic systolic heart failure (CMS/HCC)Take 1 tablet (25 mg) by mouth in the morning. 90 tablet 6Active hydrALAZINE (Apresoline) 25 mg tablet Indications:Primary hypertension,Chronic systolic heart failure (CMS/HCC)Take 1 tablet (25 mg) by mouth three times daily. 270 tablet 6Active isosorbide dinitrate (Isordil) 20 mg tablet Indications:Acute on chronic systolic heart failure (CMS/HCC),Primary hypertensionTake 1 tablet (20 mg) by mouth two times daily. 180 tablet /20241015/6Active furosemide (Lasix) 40 mg tablet Indications:Acute on chronic systolic heart failure (CMS/HCC)Take 1 tablet (40 mg) by mouth two times daily. 180 tablet 3125111/18/2025ctive furosemide (Lasix) 40 mg tablet Indications:Heart failure with improved ejection fraction (HFimpEF) (CMS/HCC) TAKE 1 TABLET BY MOUTH EVERY MORNING 90 tablet 3065111/18/2024Discontinued(Dose adjustment) isosorbide dinitrate (Isordil) 10 mg tablet Indications:Primary hypertension,Chronic systolic heart failure (CMS/HCC)Take 1 tablet (10 mg) by mouth three times daily. 270 tablet 310Discontinued(Dose adjustment) Active Problems ProblemNoted DateDiagnosed DateAbdominal pain07/16/2025bnormal results of cardiovascular function gkudsia3107/16/2025enign prostatic jqoqqpzetrx98/03/2025 Wiceaqkydbx49/03/7521Lodgqsmhvlu36/03/2025Depressed left ventricular ejection /03/2025Dry mouth07/16/20251870Murfqbsqd66/03/2025Encounter for follow-up examination after completed treatment for malignant wionlkxg12/03/2025History of primary malignant neoplasm of urinary lggvuu3907/16/20252147Axovkuixxsuwbc51/03/2025 Iron deficiency pxsfhf9007/16/2025Liver disease, dkozsvnmdes90/03/2025Presence of cardiac rkwaexgro83/03/2025Severe protein-calorie malnutrition (Aj: less than 60% of standard weight)07/16/2025Urothelial agxqimpco60/03/2025Vomiting 07/16/2025hest wall ulcer, with fat layer akwqaww8505/17/2025Nonhealing nonsurgical wound with fat layer upnfcxt9205/03/2025Open wound of left chest wall 04/22/2025Surgical wound bswopvk7404/22/2025Infection of pacemaker pocket 01/19/2025Pre-operative cardiovascular fxoselboryy33/13/2024 Assessment & Plan (06/26/2024 11:02 AM EDT): From a cardiology perspective patient may proceed with planned EGD and colonoscopy he is low to moderate risk for low risk procedure, he may hold Plavix 5 to 7 days prior to procedure, please do not hold aspirin unless absolutely necessary thank you Congenital byoqhmjkjstlnz44/11/2024acemaker complications, initial encounter 02/05/2024Syncope and wcrpkyvp41/02/2023 Assessment & Plan (03/15/2023 1:08 PM EDT): Reviewed with Dr Reddy and he recommended perm Pacemaker- orders sent and d/w pt and daughter= provided pt education pamphlet for Pacemaker that reviewed indications, risks vs benefits of procedure and pt voiced understanding and is agreeable with proceeding with PPM High-grade atrioventricular block03/15/2023 Overview (03/15/2023): Added automatically from request for surgery [id number] Assessment & Plan (05/05/2023 10:58 PM EDT): [...] light of syncope CKD (chronic kidney disease)12/03/2022ross xzeadwluq95/01/2023Obesity, Class I, BMI 30-34.9003/27/2022Malignant neoplasm of urinary rdqstcf1611/10/2021KI (acute kidney injury)11/01/2021Hypertensive heart disease with heart udjjetj7907/11/2021 Overview (03/15/2023): Last Assessment & Plan: -BP elevated in office 171/70, 170/72, patient reports he has not taken any of his medications yet today -denies cardiac symptoms -EF 55% on echo 02/2022 scanned into [facility] -on hydralazine, losartan, isosorbide dinitrate, and Jardiance -follows with cardiology, dr. Keven Castaneda, requested most recent office note Assessment & Plan (06/26/2024 11:02 AM EDT): Blood pressure well-controlled Continue all current medications including Toprol, losartan, Imdur, hydralazine Ogzwfeajxgqgok71/18/2019Ulcerative ihurjbgshn85/29/2019 Overview (03/15/2023): Last Assessment & Plan: -stable on rx Stage 3 chronic kidney slresfn7408/11/2019 Overview (03/15/2023): Last Assessment & Plan: -labs pending Gastro-esophageal reflux disease without cfvvjjhrxeu13/28/2019 Overview (03/15/2023): Last Assessment & Plan: -stable on PPI Malignant neoplasm of kidney excluding renal lcbovz2307/29/2019 Overview (03/15/2023): Last Assessment & Plan: -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, present since 2019, s/p URS and laser ablation, tumor recurrence andhas been getting chemo (last dose a few months ago), now scheduled for surgery Hypertensive awngkmlo2019 Assessment & Plan (03/15/2023 1:06 PM EDT): Hypertension is controlled Continue med regime Acquired absence of hdmptv7607/18/2018Malignant neoplasm of dyurpa5507/07/2018HLD (hyperlipidemia)09/04/2017Essential wlhoosacgxdl28/22/2017 Assessment & Plan (05/05/2023 10:55 PM EDT): -stable -ct meds Aqqanxbphlmo89/22/2017Chronic systolic heart failure Assessment & Plan (06/26/2024 11:22 AM EDT): Currently euvolemic without exacerbation [place] heart class II Continue GDMT, aspirin, Lipitor, [...] Assessment & Plan (06/26/2024 11:21 AM EDT): PKA0LC8-OBFs= 5-age, heart failure, hypertension, CAD/vascular disease A-flutter [...] DateDiagnosed DateResolved DateSevere protein-calorie malnutrition /Mild protein-calorie mecawpkdvtcb51NSTEMI (non-ST elevated myocardial infarction)/ngina pectoris, Encounters DateTypeDepartmentCare NebfVpaabkurhhx41/12/2025 1:00 PM ESTOffice [facility] [address] [place] [facility] [place] [address] Keven Castaneda MD Acute on chronic systolic heart failure (CMS/HCC) (Primary Dx); Coronary artery disease involving [place] coronary artery of [place] heart without angina pectoris; Primary hypertension; Complete heart block (CMS/HCC); Cardiac pacemaker in situ; Stage 3b chronic kidney disease (CMS/HCC)09/17/2025 10:00 AM ESTOffice Visit [facility] [address] [place] [facility] [place] [address] Keven Castaneda MD Acute on chronic systolic heart failure (CMS/HCC) (Primary Dx); Coronary artery disease involving [place] coronary artery of [place] heart without angina pectoris; Primary hypertension; Complete heart block (CMS/HCC); Cardiac pacemaker in situ; Stage 3b chronic kidney disease (CMS/HCC)07/19/2025 9:15 AM EDTOffice Visit [facility] [address] [place] [facility] [place] [address] Keven Castanead MD Chronic systolic heart failure (CMS/HCC) (Primary Dx); Coronary artery disease involving [place] coronary artery of [place] heart without angina pectoris; Primary hypertension; Complete heart block (CMS/HCC); Cardiac pacemaker in situ; Stage 3b chronic kidney disease (CMS/HCC)07/06/2025Orders Only [facility] [address] [place] [facility] [place] [address] Olayinka Culp MD 06/30/2025 10:45 AM EDTAncillary Procedure [facility] [address] [place] [address] Encounter for implantable defibrillator reprogramming or checkfrom Last 3 Months Immunizations ImmunizationAdministration DatesNext QryKHW4602/26/2022Influenza, intradermal, quadrivalent, preservative free08/09/2015Pneumococcal Conjugate PCV 13001/07/2015 Pneumococcal Polysaccharide JRE981302/13/2013Td (adult), 5 Lf tetanus toxoid, preservative free, ywhtdxch92/04/2013Zoster, Skjlcqighpx19/30/2023 Family History Medical HistoryRelationNameCommentsLung cancerFatherHeart failureMotherRelation NameStatusCommentsFatherDeceasedMotherDeceased Social History Tobacco UseTypesPacks/DayYears UsedDateSmoking Tobacco: FormerCigarettesQuit: 1980Smokeless Tobacco: Never Tobacco Cessation:Counseling Given: Not Answered Alcohol UseStandard Drinks/WeekCommentsNot Currently0 (1 standard drink = 0.6 oz pure alcohol)[facility] UtilitiesAnswerDate RecordedIn the past 12 months has the [employer], gas, oil, or water [employer] threatened to shut off services in your [...] and heating?Not very hard03/23/2024HQ-2AnswerDate 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 Health Questionnaire-2 Umzfz819UT Safety & Environment AnswerDate RecordedWithin the last [...] steady place to sleep or slept in salemelter (including now)?No03/23/2024Hunger Vital SignAnswerDate RecordedWithin the past 12 months, you worried that your food would run out before you got the money to buymore.Never true03/23/2024an Out of Food in the Last YearNot on file03/23/2024Sex and Gender InformationValueDate RecordedSex Assigned at GcgfnQwhi68/24/2024 10:53 AM EDTLegal DafOnbv4204/12/2022 12:06 AM EDTGender GevbveygInvs52/24/2024 10:53 AM EDTSexual Orientation Heterosexual or Uoltsbsr30/24/2024 10:53 AM EDT Last Filed Vital Signs Vital SignReadingTime TakenCommentsBlood Bjylnmmq118/6209/24/2025 1:09 PM EST Kfdti373809/24/2025 1:09 PM EEWJippzlljjtr63.2 ??C (97.2 ??F)04/19/2025 10:00 AM EDTRespiratory Uzff406404/19/2025 3:11 PM EDTOxygen Yissjmidrm72%09/24/2025 1:09 PM ESTInhaled Oxygen Concentration--Xlzuxg05.2 kg (179 lb)09/17/2025 9:50 AM EST Sbjdou755.6 cm (5' 4 )09/24/2025 1:09 PM ESTBody Mass Index30.7309/17/2025 9:50 AM EST Plan of Treatment DateTypeDepartmentCare Team (Latest Contact Info)Jfzdfpbkwtl39/16/2025 9:00 AM ESTAncillary Procedure [facility] [address] [place] [facility] [place] [phone] 09/28/2025 9:30 AM ESTOffice Visit [facility] [address] [place] [facility] [place] [address] Jimbo Reddy MD [address] [place] [phone] Health MaintenanceDue DateLast DoneCommentsMedicare Annual Wellness (AWV) 1939Depression Rbuulcxnh35/12/1951dult Xvszlrg74/01/2013Zoster Vaccines (2 of 2)/OVID-19 Vaccine ( - season) /12/2020, 11/26/2020, 11/05/2020Influenza Vaccine (#1)2025 07/22/2023, 08/09/2015Fall Risk Kpjowuiuc02/04/2025Pneumococcal Vaccine: 50+ AlbtcRidgmckyo90/27/2015, 02/13/2013HIB VaccinesAged OutNo longer eligible based on [...] 03/18/2023 by Jimbo Reddy MD at [facility] Slxfnwqjjs19//[id number] / [id number] / Ingevity+ Is-1 Bi Positive Fix Ra/Rv 59cm Implanted:Qty: 1 on 03/18/2023 by Jimbo Reddy MD at [facility] Zaderpukih39/[id number] / [id number] / Ingevity+ Is-1 Bi Positive Fix Ra/Rv 59cm Implanted:Qty: 1 on 02/05/2024 by Jimbo Reddy MD at [facility] Jxopztocis82//[id number] / [id number] / Pacer,Acchaley,Mri Dr Perez - [id number] - [id number] Implanted:Qty: 1 on 03/18/2023 by Jimbo Reddy MD at [facility] [id number] / [id number] / Procedures Procedure NamePriorityDate/TimeAssociated DiagnosisCommentsCOMPLETE TRANSTHORACIC ECHO (TTE) W/WO IMAGING AGENT, STRAIN, 3D, BUBBLE STUDYRoutine 07/06/2025 2:58 PM EDTCARDIAC DEVICE CHECK - IN CLINIC - LEADLESS PACER W/ PROG Yckzyux9407/01/2025 9:35 AM EDT Encounter for implantable defibrillator reprogramming or check from Last 3 Months Results * Complete Echo (TTE) w/wo Imaging Agent, Strain, 3D, Bubble Study (07/06/2025 2:58 PM EDT)Anatomical RegionLateralityModalityUltrasound Narrative Authorizing ProviderResult TypeResult StatusHistorical Provider [facility] ECHO PROCEDURESFinal Result * CARDIAC DEVICE CHECK [...] attached note Authorizing ProviderResult TypeResult StatusPalolis Reddy MDCV IMPLANTABLE CARDIAC DEVICE PROCEDURESFinal Result from Last [...] PM Care Teams Team MemberRelationshipSpecialtyStart DateEnd Date , MD Faheem [address] [place] [address] PCP - GeneralNurse Practitioner04/09/24
--- OUTSIDE RECORDS SUMMARY | 2025-09-28 07:33 | XMS_ITS ---
Author Organization [facility] Address [address] [place], [place] [address] Care Team Providers Care Canvassing Manager Name Role Phone Jian Manriquez MD Unavailable [phone] Keven Castaneda MD Unavailable Caesar Prado MD Unavailable [phone] Patricia Conteh SALES PROMOTION DIRECTOR.DEVICE REPAIR TECHNICIAN Unavailable [phone] Faheem Tran DEVICE REPAIR TECHNICIAN Primary Care Provider [phone] Active Problems ProblemNoted DateDiagnosed DateCKD (chronic kidney disease), stage V011/29/2023 Gross royuymvdh80/01/2023Obesity, Class I, BMI 30-34.9003/27/2022Malignant neoplasm of urinary mxevflf0111/10/2021KI (acute kidney injury)11/01/2021 Hypertensive heart disease with heart alyyugg4807/11/2021 Assessment & Plan (09/12/2022 11:40 AM EST): -BP elevated in office 171/70, 170/72, patient reports he has not taken any of his medications yet today -denies cardiac symptoms -EF 55% on echo 02/2022 scanned into [facility] -on hydralazine, losartan, isosorbide dinitrate, and Jardiance -follows with cardiology, dr. Keven Castaneda, requested most recent office note Qwagywpfwejnno93/18/2019Ulcerative weonphpowi96/29/2019 Assessment & Plan (09/12/2022 11:40 AM EST): -stable on rx Stage 3 chronic kidney rgwsjeq5208/11/2019 Assessment & Plan (09/12/2022 11:40 AM EST): -labs pending Gastro-esophageal reflux disease without kwnebfnoael65/28/2019 Assessment & Plan (09/12/2022 11:40 AM EST): -stable on PPI Malignant neoplasm of kidney excluding renal pniitz5307/29/2019 Assessment & Plan (09/12/2022 11:41 AM EST): -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, present since 2019, s/p URS and laser ablation, tumor recurrence andhas been getting chemo (last dose a few months ago), now scheduled for surgery Acquired absence of mbymgl7807/18/2018Malignant neoplasm of iqatqu5907/07/2018 Vhsycgulmtpq62/22/2017 Current Treatment and Therapy Plans No current [...] CISPLATIN 35 D1,8 - Q21D - 4 LHBLCV08* CISplatin iv piggyback or iv infusion * fosaprepitant (EMEND) * gemcitabine iv piggyback (GEMZAR) [place], DOTreatment not started
--- OUTSIDE RECORDS SUMMARY | 2025-09-28 07:33 | XMS_ITS ---
Author Organization [facility] Address [id number] [address] [place] [address] Care Team Providers Care Head Shipper Name Role Phone Faheem Tran PROCESSES CHEMICAL DESIGN ENGINEER-INFORMATION SYSTEMS ANALYST Primary Care Provider [phone] Active Problems Patient Care Coordination No te Formatting of this note migh t be different from the original. Last AWV 08/09/15 ProblemNoted DateDiagnosed DateChest wall ulcer, with fat layer exposed 05/17/2025Infection of pacemaker cfxhoo5905/17/2025Nonhealing nonsurgical wound with fat layer xmbmopk4805/03/2025Open wound of left chest wall04/22/2025Surgical wound bxjptpc0804/22/2025Pacemaker complications, initial lsokaryta11/07/2025 Ureter qhsyay1307/18/2018Essential rrogaqqughsw56/22/2017HLD (hyperlipidemia) 09/04/2017 Current Treatment and Therapy Plans No current plan information found. Other Current Plans Ambulatory wound care* Plan Start Date:05/17/2025 Plan Provider:AVIVA HorvathINFORMATION SYSTEMS ANALYST Linked Problems Chest wall ulcer, with fat l keri exposed Treatment Medications No medications scheduled. Past Treatment and Therapy Plans No past plan information found. Lifetime Dose Tracking * ChemicalLifetime DoseAutomatic EntryManual LpbnzXsmohatdwvi252 mGy0 eLm281 mGy Fluoro Time21.3 minutes0 gimzxju26.3 minutes
--- OUTSIDE RECORDS SUMMARY | 2025-09-28 07:33 | XMS_ITS | Clinical Summary ---
Author Organization [facility] Address [address] [place] [address] Care Team Providers Care Air Filler Name Role Phone Jian Manriquez MD Unavailable [phone] Keven Castaneda MD Unavailable [phone] Caesar Prado MD Unavailable [phone] Patricia Conteh APRN.RECEPTIONIST SCHEDULER Unavailable [phone] Faheem Tran RECEPTIONIST SCHEDULER Primary Care Provider [phone] Allergies Active AllergyReactionsCriticalityNoted DateCommentsDesonideUnknownMedium 4Adhesive Tape (Rosins)Other: See SdydemskYcmech34/01/2018 Severe blisters Medications MedicationSigDispense QuantityRefillsLast FilledStart DateEnd [...] DateCKD (chronic kidney disease), stage V011/29/2023 Gross pcireiisi78/01/2023Obesity, Class I, BMI 30-34.9003/27/2022Malignant neoplasm of urinary bmqmgov1411/10/2021KI (acute kidney injury)11/01/2021 Hypertensive heart disease with heart ektjogw6907/11/2021 Assessment & Plan (09/12/2022 11:40 AM EST): -BP elevated in office 171/70, 170/72, patient reports he has not taken any of his medications yet today -denies cardiac symptoms -EF 55% on echo 02/2022 scanned into [facility] -on hydralazine, losartan, isosorbide dinitrate, and Jardiance -follows with cardiology, dr. Keven Castaneda, requested most recent office note Efktlajqdbekem20/18/2019Ulcerative /29/2019 Assessment & Plan (09/12/2022 11:40 AM EST): -stable on rx Stage 3 chronic kidney yalzkpk6708/11/2019 Assessment & Plan (09/12/2022 11:40 AM EST): -labs pending Gastro-esophageal reflux disease without rncwoxtxhcf38/28/2019 Assessment & Plan (09/12/2022 11:40 AM EST): -stable on PPI Malignant neoplasm of kidney excluding renal kqwjdh4407/29/2019 Assessment & Plan (09/12/2022 11:41 AM EST): -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, present since 2019, s/p URS and laser ablation, tumor recurrence andhas been getting chemo (last dose a few months ago), now scheduled for surgery Acquired absence of tpeiti1207/18/2018Malignant neoplasm of eqpazs6807/07/2018 Icsyhuwiuijl23/22/2017 Encounters DateTypeDepartmentCare CwqjYynnltwbxda62/02/2025Interfaced Data Religious Education Coordinator Management [address] [place] [address] David Ballard MD 09/02/2025Interfaced Data [employer] Education Coordinator Management [address] [place] [address] David Ballard MD from Last 3 Months Immunizations ImmunizationAdministration DatesNext DueCOVID-19 original vaccine, age 12+ yr, monovalent ([employer]-WorldAPP - PURPLE TOP)09/15/2021,11/26/2020,11/26/2020, 11/05/2020,11/05/2020TD Adult01/15/2013diphtheria tetanus pertussis (DTP) gonyadj7202/26/2022influenza (IIV4) vaccine, quadrivalent, PF, intradermal (FLUZONE INTRADERMAL)08/09/2015influenza (LAIV) vaccine, nasal, unspecified baiailvcsjt36/27/2015pneumococcal conjugate (PCV13) vaccine, 13 valent (PREVNAR 13)01/07/2015pneumococcal polysaccharide (PPV23) vaccine, 23 valent (PNEUMOVAX 23)02/13/2013tetanus diphtheria (Td) vaccine, age 7+ yr, 5 Lf tetanus, PF (TENIVAC)01/15/2013zoster (RZV) vaccine, recombinant (SHINGRIX)08/12/2023 Family History Medical HistoryRelationCommentsAsthmaMotherhtnMotherAsthmaSisterAnesthesia ProblemsNo Family HistoryRelationStatusCommentsMotherSister Social History Tobacco UseTypesPacks/DayYears UsedDateSmoking Tobacco: AixogfKqeccdovro3667428 - 1971Passive Smoke Exposure: PastSmokeless Tobacco: Never Tobacco Cessation:Counseling Given: Not Answered Alcohol UseStandard Drinks/WeekCommentsNo0 (1 standard drink = 0.6 oz pure alcohol)PHQ-2AnswerDate RecordedPHQ-2 sgqvf87211/20/2022rea Deprivation Index AnswerDate RecordedNational Score (1-100), lower number is lower risk79 02/19/2023State Score (1-10), lower number is lower vdxt273ata from: https://www.neighborhoodatlas.[facility]/. Last address used for [address] [place] [address]/19/2023Sex and Gender InformationValueDate RecordedSex Assigned at ToocxZldb72/16/2019 6:33 PM ESTLegal HxbMhkn5507/11/2018 8:15 AM EDTGender ZsyjqlrvIbsx50/16/2019 6:33 PM ESTSexual OrientationStraight 09/28/2019 6:33 PM EST Last Filed Vital Signs Vital SignReadingTime TakenCommentsBlood Cojmfqdp216/76010/23/2024 9:01 AM EST Omipr659510/23/2024 9:01 AM JFYNampdnmfdpd02.5 ??C (97.7 ??F)10/23/2024 9:01 AM ESTRespiratory Pkqs309710/23/2024 9:01 AM ESTOxygen Wwkaosvrtp53%10/23/2024 9:01 AM ESTInhaled Oxygen Concentration--Tzflpm10.7 kg (169 lb 1.5 oz)10/23/2024 9:01 AM FWWIeabrb835 cm (5' 3.78 )08/21/2024 9:22 AM ESTBody Mass Index29.23 08/21/2024 9:22 AM EST Plan of Treatment Health MaintenanceDue DateLast DoneCommentsAnxiety Ehnvbpfjp09/12/1957Depression Qntpmpomy47/12/1957Medicare Annual Wellness Visit04/13/2005RSV Vaccine (1 - 1- dose 75+ series)2014Shingrix Vaccine (2 of 2)/dvance Directive Vbubastsvu71/01/2025ovid-19 Vaccine (6 - 2025-26 season)2025 09/15/2021, 11/26/2020, 11/26/2020, Additional history existsInfluenza Vaccine (#1)51, 08/09/2015Diabetes Zhpzgldpv05/07/2025, 04/21/2025, 04/20/2025, Additional history existsDTaP,Tdap,Td Vaccine (2 - Tdap) /, 01/15/2013, 01/15/2013Pneumococcal Vaccine: 50+Completed 01/07/2015, 02/13/2013 Medical Devices ImplantedTypeAreaManufacturerDevice IdentifierShelf Expiration DateModel / Serial / Danika Schubert Ureteral Stent Kit 7f X 26cm Implanted:Qty: [facility]ImplantRight: UreterWILBURTON MEDICAL FOZNMICO17/10/[id number] / / [id number] Inlay Schubert 7fr Taper Stebbins Green Polymer Phreecoat 24cm Ureteral - [id number] Implanted:08/12/2019 at [facility] (Quantity not on file)Urologic Stents Right: UreterWILBURTON MEDICAL PSLRAXGL07/12/[id number] / / [id number] Inlay Schubert 7fr Taper Stebbins Green Polymer Phreecoat 26cm Ureteral - [id number] Implanted:09/30/2019 at [facility] (Quantity not on file)Urologic Stents Right: UreterWILBURTON MEDICAL SGKNJHRS43/12/[id number] / / [id number] Nicore Inlay Schubert 7fr Taper Stebbins Green Nitinol Polymer 24cm - [id number] Implanted:Qty: 1 on 10/26/2021 [facility] HospitalUrologic StentsRight: Ureter [employer] DCVYQXPN23/26/[id number] / / [id number] Inlay Schubert 6fr Taper Stebbins Green Polymer Phreecoat 24cm Ureteral - [id number] Implanted:Qty: 1 on 11/12/2022 [facility] HospitalUrologic StentsRight: Ureter [employer] GQVUXIBO85/01/[id number] / / [id number] Procedures Procedure NamePriorityDate/TimeAssociated DiagnosisCommentsCOMPREHENSIVE METABOLIC IDHVKNevrpgc89/03/2025 7:16 AM EST Malignant neoplasm of overlapping sites of bladder (HCC) from Last 3 Months or Most Recently Relevant to Health Maintenance Results * (ABNORMAL) COMPREHENSIVE METABOLIC PANEL (10/16/2024 7:16 AM EST)Component ValueRef RangeTest MethodAnalysis TimePerformed AtPathologist Signature Protein, Total6.46.3 - 8.0 g/dL10/16/2024 7:48 AM ESTNOR[facility]CPONTIAC [facility] LABAlbumin4.33.9 - 4.9 g/dL10/16/2024 7:48 AM [facility] LABCalcium, Total9.28.5 - 10.2 mg/dL10/16/2024 7:48 AM [facility] LABBilirubin, Total0.90.2 - 1.3 mg/dL 10/16/2024 7:[address] [facility] LABAlkaline Fgvpozkvhvm5241 - 113 U/L10/16/2024 7:48 AM [facility] WXDIEU9478 - 40 U/L10/16/2024 7:48 AM [facility] SAIOKV1813 - 54 U/L10/16/2024 7:48 AM [facility] ZWEHgzyxdz149(H)74 - 99 mg/dL10/16/2024 7:48 AM [facility] LABComment: The [place] Diabetes Association (ADA) provides guidance for cutoff [...] Standards of Medical Care in Diabetes 2016, [place] Diabetes Association. Diabetes Care. 2016.39(Suppl 1). BUN32(H)9 - 24 mg/dL10/16/2024 7:48 AM [facility] Creatinine1.71(H)0.73 - 1.22 mg/dL10/16/2024 7:48 AM [facility] CRXDnmyoc770466 - 144 mmol/L10/16/2024 7:48 AM [facility] LABPotassium4.23.7 - 5.1 mmol/L10/16/2024 7:48 AM EST [facility] BYMSxseceip78464 - 107 mmol/L10/16/2024 7:48 AM [facility] OEQSS76418 - 30 mmol/L10/16/2024 7:48 AM [facility] LABAnion Kiq855 - 15 mmol/L10/16/2024 7:48 AM [facility] LABEstimated Glomerular Filtration Rate 39(L)>=60 mL/min/1.73m 10/16/2024 7:48 AM [facility] LABComment:Estimated Glomerular Filtration Rate (eGFR) is calculated [...] VolumeCollection TimeReceived TimeBloodBLOOD SPECIMEN / UnknownVenipuncture / Tpnxdaj9710/16/2024 7:16 AM EST10/16/2024 7:25 AM EST Narrative Authorizing ProviderResult TypeResult StatusCaesar Prado MDLABORATORYFinal ResultPerforming OrganizationAddressCity/State/ZIP CodePhone Number [facility] [address] [place] [address] from Last 3 Months or Most Recently Relevant to Health Maintenance Insurance Advance Directives TypeDate 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 RepresentativeExplanationAdvance Directive(s)08/11/2019 11:21 AM Care Teams Team MemberRelationshipSpecialtyStart DateEnd Date Might, Faheem Nelson CNP [address] [place] [address] PCP - GeneralNurse Practitioner05/18/24 Jian Manriquez MD PhysicianUrolog10/28/19 Keven Castaneda MD [address] [facility] [address] [place] [address] Gpdvwycuud46/30/22 Caesar Prado MD [address] [place] [address] PhysicianHematology/Oncology12/26/22 Patricia Conteh APRN.RECEPTIONIST SCHEDULER [address] [place] [address] Nurse PractitionerHematology/Oncology12/26/22
--- OUTSIDE RECORDS SUMMARY | 2025-09-28 07:33 | XMS_ITS | Patient Health Record ---
Author Organization [facility] [place] Address [address] [place] [address] Care Team Providers Care Gate Cutter Name Role Phone None, Unknown or Primary Care Provider Unavailab john Monica Mickey Unavailable [phone] Allergies No Known Allergies Reason For Referral [...] Orally Q 6 hours PRN; Duration: 3 pfmfFMY3311/18/2023ctiveGlucosaminew/MSM 1500mgActive Keytruda 100 MG/4MLas directed IntravenousActiveamLODIPine Besylate [...] Administration Date Status Comme nts Flu, Fluad (2637-8621) (57471) 65 yrs+, single-dose syringe IM Intramuscular 07/22/2023 [...] alcohol in the p ast year? No Fqowio8EdzcthmhsyfnooLkekoqsg Problems Problem Type SNOMED Code ICD Code Onset Dates Problem Status W/U Status Risk Notes Problem Syncope and collapse (045770197) Syncope and collapse (R55) ActiveconfirmedProblemHypomagnesemia (169234044)Hypomagnesemia (E83.42)Active confirmedProblemDehydration (11100238)Dehydration (E86.0)ActiveconfirmedProblem Hypotension (69672622)Other hypotension (I95.89)ActiveconfirmedProblemLiver disease (865194858)Liver disease, unspecified (K76.9)ActiveconfirmedProblem Bradycardia (45811367)Bradycardia, unspecified (R00.1)ActiveconfirmedProblem Aftercare (878447840)Encounter for follow-up examination after completed treatment for malignant neoplasm (Z08)ActiveconfirmedProblemPersonal history of primary malignant neoplasm of urinary system (497395652)Personal history of malignant neoplasm of unspecified urinary tract organ (Z85.50)Activeconfirmed ProblemCardiac pacemaker in situ (098733175)Presence of cardiac pacemaker (Z95.0)ActiveconfirmedProblemAbdominal pain (64591737)Abdominal pain (R10.9) ActiveconfirmedProblemHypothyroid (93573093)Hypothyroid (E03.9)Activeconfirmed ProblemMalignant tumor of prostate (663799273)Prostate cancer (C61)Active confirmedProblemGastritis (0430679)Gastritis (K29.70)ActiveconfirmedProblem Vomiting (607272007)Vomiting (R11.10)ActiveconfirmedProblemDry mouth (42419528) Dry mouth (R68.2)ActiveconfirmedProblemSevere protein-calorie malnutrition (Aj: less than 60% of standard weight) (262402408)Protein-calorie malnutrition, severe (E43)ActiveconfirmedProblemIron deficiency anemia (95928499)Anemia, iron deficiency (D50.9)ActiveconfirmedProblemHyperlipidaemia (39218991)Hyperlipidemia, unspecified hyperlipidemia type (E78.5)Activeconfirmed ProblemUrothelial carcinoma (93895986)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)Active confirmedProblemSevere protein calorie malnutrition (891931042)Other severe protein-calorie malnutrition (E43)ActiveconfirmedProblemPrimary hypertension (09573117)Primary hypertension (I10)ActiveconfirmedProblemBenign prostatic hypertrophy without outflow obstruction (274432129)Benign prostatic hyperplasia, unspecified whether lower urinary tract symptoms present (N40.0)Activeconfirmed ProblemIron deficiency anemia (57985267)Chronic iron deficiency anemia (D50.9) ActiveconfirmedProblemChronic kidney disease stage 3 (disorder) (639454633)Stage 3 chronic kidney disease, unspecified whether stage 3a or 3b CKD (N18.30)Active confirmedProblemAbnormal results of cardiovascular function studies (308830271) Cardiac LV ejection fraction of 40-49% (R94.30)Activeconfirmed Encounters Encounter Location Date Provider Diagnosis [id number] [place] [address] 11/30/2024 Mickey Anderson [facility] [address] [place] [address] 12/30/2024Mickey Anderson Plan Of Treatment Pending Test [...] End Date [place]IC[place] [address] [place] [address] [id number] Baljeet Sanchez - patient is the blphfmt82 [address] [address] [place] [id number], LeoSelf - patient is the okvxyhw81 2022 Medical (General) History Medical History History [...]
[2025-09-28 08:13] LABS: Hematocrit 43.4 % (42.0-54.0); Hemoglobin 14.1 g/dL (14.0-18.0); Immature Granulocytes Abs Auto 0.00 10^3/uL (0.00-0.03); Immature Granulocytes Pct Auto 0.0 % (0.0-0.5); Lymphocytes Absolute Auto 0.8 10^3/uL (1.2-3.8); Mean Corpuscular HGB Conc 32.5 g/dL (29.9-35.2); Mean Corpuscular Hemoglobin 28.4 pg (25.9-34.0); Mean Corpuscular Volume 87.5 fL (80.0-94.0); Platelet Count 199 10^3/uL (150-450); Red Blood Count 4.96 10^6/uL (4.70-6.10); White Blood Count 5.4 10^3/uL (4.0-11.0)
[2025-09-28 08:29] LABS: Anion Gap 11.4; Blood Urea Nitrogen 34.0 mg/dL (7.0-18.0); Calcium 8.5 mg/dL (8.5-10.1); Carbon Dioxide 31.5 mmol/L (21.0-32.0); Chloride 108 mmol/L (98-107); Estimated GFR (African America 39 (>=60 mL/min/1.73m^2); Estimated GFR (Non-African Ame 32 (>=60 mL/min/1.73m^2); Glucose 155 mg/dL (74-106); Potassium 3.9 mmol/L (3.5-5.1); Sodium 147 mmol/L (136-145)
== END 2025-09-28 07:28 | disposition home or self-care (01) ==
LOC: LAB 07:29
PROVIDERS: Visit Provider Internal Medicine Interventional Cardiology
DX: I50.23 Acute on chronic systolic (congestive) heart failure (principal); N18.32 Chronic kidney disease, stage 3b
CPT/HCPCS: 36415; 80048; 85025